=== PATIENT | male | born 1950 | race Caucasian/White ===

== ENCOUNTER 2016-09-11 00:19 | Inpatient (IN) | payer MEDICARE ==
[~2016-09-11] VITALS: Ht 185.4 cm; Wt 83.9 kg
[2016-09-11] VITALS (9 sets, daily range): BP systolic 99–147; BP diastolic 65–92
[~2016-09-11 00:19] MED LIST: ACETAMINOPHEN325 M1 ORAL; ACIDOPHILUS1 EAC4 GT; ALBUTEROL2.5 MG/3 M INH; AMPICILLIN TRI500 MG ORAL; AMPICILLIN250 MG GT; BACTRIM SINGLE S1 EA ORAL; BACTRIM-DS1 EA ORAL; BENZTROPINE MESY1 MG GT; CARAFATE1 G1 GT; CARAFATE1 G1 ORAL; COLACE100 MG ORAL; COLACE100 MG/10 GT; COLISTIN150 MG INH; COMPLETE M9 MG/15 M1 GT; CRANBERRY425 MG PO; DIFLUCAN100 MG ORAL; DULCOLAX10 MG RC; DUONEB 0.5-3(2.53 ML HHN; FAMOTIDINE20 MG GT; FERROUS SU300 MG/5 M NG; FERROUS SU300 MG/5 M ORAL; FLAGYL500 MG JT; FLORASTOR250 MG GT; FOLIC ACID1 MG GT; FOLIC ACID1 MG ORAL; GENTAMICIN IV; HEPARIN SO5000 UNIT2 SUBQ; INVANZ1 G1 IV; INVANZ1 GM IVPB; LEVOTHYROXINE50 MCG GT; LISINOPRIL20 MG GT; LORAZEPAM1 MG GT; MEROPENEM-1 GM/50 ML IV; MEROPENEM1 GM IVPB; METOCLOPRAMIDE H5 M1 ORAL; METRONIDAZOLE250 MG ORAL; METRONIDAZOLE500 MG ORAL; MILK OF MA400 MG/51 GT; MILK OF MA400 MG/51 ORAL; MIRALAX17 G2 ORAL; MIRALAX17 GM GT; MOM30 ML GT; MULTI VITAMIN1 EACH GT; MULTI-VITAMIN-1 EACH GT; NORVASC2.5 MG ORAL; NORVASC5 MG GT; OMEPRAZOLE20 M2 GT; PANTOPRAZOLE SO40 MG GT; PROTONIX40 M2 GT; PROTONIX40 M2 NG; PROTONIX40 MG GT; REGLAN5 MG GT; REGLAN5 MG ORAL; ROCEPHIN 11 GM/50 ML IVPB; SENNA8.6 M3 PO; SUCRALFATE1 GM GT; SYNTHROID50 MCG ORAL; TRILEPTAL150 MG GT; TRILEPTAL150 MG ORAL; TRILEPTAL600 MG GT; TYLENOL650 MG/20. GT; VANCOMYCIN HCL125 MG PO; VANCOMYCIN1 GM IV; VANCOMYCIN250 MG/5 M ORAL; VENOFER50 MG/2.5 IV; VITAMIN C500 M1 GT; VITAMIN C500 MG/11 GT; ZINC SULFATE220 M1 GT; ZOFRAN4 M3 GT; ZOFRAN4 M3 ORAL; ZYVOX600 MG ORAL; ZYVOX600 MG/300 IVPB
--- NOTE | 2016-09-11 00:59 | Emergency Room Report ---
History of Present Illness General Chief Complaint: Fever Source: Medical Record, EMS Present Illness HPI This is an unfortunate 66-year-old male who is a [facility] patient. He has multiple medical problem in his bedbound. He is a tracheostomy and feeding tube. His contracted. His been admitted here multiple times for sepsis secondary to pneumonia and UTI. He presents today with chief complaint of fever and decreased mentation. Unable to get any other history from the patient. No complaint of cough. Allergies: Coded Allergies: NO KNOWN DRUG ALLERGIES (Verified Allergy, Unknown, 09/11/16) Patient History Past Medical History: see triage record, old chart reviewed Past Surgical History: other Pertinent Family History: none Social History: Denies: smoking Immunizations: UTD Reviewed Nursing Documentation: PMH: Agreed, PSxH: Agreed Nursing Documentation-PMH Past Medical History: No History, Except For Hx Cardiac Problems: Yes Hx Hypertension: Yes Hx Asthma: Yes Hx Diabetes: Yes Hx Cancer: No Hx Neurological Problems: Yes Hx Cerebrovascular Accident: Yes Hx Transient Ischemic Attacks: Yes Hx Dementia: Yes Hx Parkinson's Disease: Yes Hx Encephalitis: Yes Hx Seizures: Yes Hx Epilepsy: Yes Hx Paralysis: Yes - HEMIPLEGIA Hx Concentration Difficulty: Yes Hx Speech Problem: Yes Hx Aphasia: Yes Hx Weakness: Yes Hx Fatigue: Yes Hx Neurologic Surgery: No Hx Brain Shunt: No Review of Systems Constitutional: Reports: fever All Other Systems: limited - Patient unable to give history. Physical Exam Vital Signs Date Time Temp Pulse Resp B/P Pulse Ox O2 Delivery O2 Flow Rate FiO2 09/11/16 00:20 97.5 79 14 107/68 96 Mechanical Ventilator vitals unremarkable Sp02 EP Interpretation: reviewed, normal General Appearance: mild distress, Chronically Ill Head: normocephalic, atraumatic Eyes: bilateral eye EOMI, bilateral eye PERRL ENT: dry mucus membranes Neck: full range of motion, supple, no meningismus, tracheotomy Respiratory: chest non-tender, normal breath sounds, rhonchi Cardiovascular #1: regular rate, rhythm, no murmur Gastrointestinal: normal bowel sounds, non tender, no mass, no organomegaly, no bruit, non-distended, other - G-tube intact Musculoskeletal: other - Contracted Psychiatric: mood/affect normal Skin: warm/dry Procedures Critical Care Time Critical Care Time Critical care is mandated in this patient who presented with sepsis from drug resistant UTI. Patient require my urgent intervention to attenuate the risks of metabolic collapse which may lead to cardiovascular collapse and . Critical care time is 35 minutes excluding any reportable procedure. Critical care time included evaluation, multiple reevaluation, looking at old charts, interpreting laboratory and diagnostic data, discussing case with patient and family and consultants, and charting. Medical Decision Making Diagnostic Impression: Primary Impression: Sepsis Qualified Codes: A41.9 - Sepsis, unspecified organism Additional Impressions: UTI (urinary tract infection) Qualified Codes: N30.00 - Acute cystitis without hematuria Respiratory failure Qualified Codes: J96.10 - Chronic respiratory failure, unspecified whether with hypoxia or hypercapnia Proteinuria Anemia Qualified Codes: D64.9 - Anemia, unspecified ER Course Is an unfortunate 58-year-old male admitted for sepsis and UTI. He grew out multidrug-resistant Klebsiella in the urine before. It is sensitive to Tygacil. Antibiotics ordered. Will admit for IV antibiotics. Lab Results Impression labs showed leukocytosis EKG Diagnostic Results Rate: normal Rhythm: NSR ST Segments: no acute changes Rhythm Strip Diag. Results EP Interpretation: yes Rate: 100 Rhythm: NSR, no PVC's, no ectopy Chest X-Ray Diagnostic Results EP Interpretation: Yes Findings: no effusion, no pneumothorax, no acute cardiopulmonary disease, other - Chronic atelectasis Number of Views: 1 Last Vital Signs Date Time Temp Pulse Resp B/P Pulse Ox O2 Delivery O2 Flow Rate FiO2 09/11/16 00:20 97.5 79 14 107/68 96 Mechanical Ventilator Status: improved Disposition: ADMITTED INPATIENT Condition: Serious DEVON KELSEY M.D. Sep 11, 2016 00:59
[2016-09-11 01:14] LABS: KETONES,URINE 1+ (NEGATIVE); LEUKOCYTE ESTERASE ,URINE 3+ (NEGATIVE); NITRITE,URINE NEGATIVE (NEGATIVE); PH,URINE 9 (4.5-8.0); PROTEIN,URINE 4+ (NEGATIVE); UROBILINOGEN,URINE NORMAL MG/DL (0.0-1.0)
[2016-09-11 01:20] LABS: MEAN CORPUSCULAR HEMOGLOBIN 29.3 PG (27.0-31.0); MEAN CORPUSCULAR HGB CONC 31.6 G/DL (32.0-36.0); MEAN CORPUSCULAR VOLUME 93 FL (80-99); MEAN PLATELET VOLUME 8.3 FL (6.5-10.1); PLATELET COUNT 311 K/UL (150-450); RED BLOOD COUNT 3.59 M/UL (4.70-6.10); RED CELL DISTRIBUTION WIDTH 14.2 % (11.6-14.8); WHITE BLOOD COUNT 19.5 K/UL (4.8-10.8)
[2016-09-11 01:24] LABS: APPEARANCE,URINE TURBID
[2016-09-11 01:25] LABS: BACTERIA,URINE MODERATE /HPF; RBC,URINE 20-30 /HPF (0 - 0); SQUAMOUS EPITHELIAL CELL,UR FEW /LPF (NONE/OCC); WBC,URINE 30-40 /HPF (0 - 0)
[2016-09-11 01:27] LABS: INR 1.1 (0.9-1.1); PROTHROMBIN TIME 10.9 SEC (9.30-11.50)
[2016-09-11 01:31] LABS: TROPONIN I < 0.30 ng/mL (<=0.30)
[2016-09-11 01:35] LABS: ALANINE AMINOTRANSFERASE 14 U/L (3-41); ALBUMIN/GLOBULIN RATIO 0.8 (1.0-2.7); ANION GAP 13 (5-15); ASPARTATE AMINO TRANSFERASE 11 U/L (5-40); CALCIUM 9.2 mg/dL (8.6-10.2); CARBON DIOXIDE 26 mEQ/L (20-30); CHLORIDE 95 mEQ/L (98-107); CREATININE 0.6 mg/dL (0.7-1.2); GLOMERULAR FILTRATION RATE > 60 mL/min (>60); HEMOLYSIS 4; POTASSIUM 4.3 mEQ/L (3.4-4.9); SODIUM 134 mEQ/L (135-145); TOTAL PROTEIN 7.1 g/dL (6.6-8.7)
[2016-09-11 01:44] LABS: CKMB < 1.5 ng/mL (< 6.7)
[2016-09-11] MEDS ORDERED: Acetaminophen 500mg (ES) tab ORAL ONE (01:45)
[2016-09-11] MEDS ORDERED: Meropenem 1gm vial ONE (01:58)
[2016-09-11] MEDS ORDERED: NS 100 ML ONE (01:58)
[2016-09-11] MEDS ORDERED: Tubing IV Cassette IV ONE (01:58)
[2016-09-11 04:43] LABS: BAND NEUTROPHILS % (MANUAL) 12 % (0-8); BASOPHILS % (MANUAL) 1 % (0-2); EOSINOPHILS % (MANUAL) 0 % (0-3); LYMPHOCYTES % (MANUAL) 14 % (20-45); NEUTROPHILS % (MANUAL) 70 % (45-75); PLATELET ESTIMATE ADEQUATE; PLATELET MORPHOLOGY NORMAL; TOTAL CELLS COUNTED 100
[2016-09-11 04:44] LABS: HYPOCHROMASIA 1+
--- NOTE | 2016-09-11 04:54 | Emergency Room Report ---
History of Present Illness General Chief Complaint: Fever Source: Medical Record, EMS Present Illness Allergies: Coded Allergies: NO KNOWN DRUG ALLERGIES (Verified Allergy, Unknown, 09/11/16) Nursing Documentation-PMH Past Medical History: No History, Except For Hx Cardiac Problems: Yes Hx Hypertension: Yes Hx Asthma: Yes Hx Diabetes: Yes Hx Cancer: No Hx Neurological Problems: Yes Hx Cerebrovascular Accident: Yes Hx Transient Ischemic Attacks: Yes Hx Dementia: Yes Hx Parkinson's Disease: Yes Hx Encephalitis: Yes Hx Seizures: Yes Hx Epilepsy: Yes Hx Paralysis: Yes - HEMIPLEGIA Hx Concentration Difficulty: Yes Hx Speech Problem: Yes Hx Aphasia: Yes Hx Weakness: Yes Hx Fatigue: Yes Hx Neurologic Surgery: No Hx Brain Shunt: No Physical Exam Vital Signs Date Time Temp Pulse Resp B/P Pulse Ox O2 Delivery O2 Flow Rate FiO2 09/11/16 00:20 97.5 79 14 107/68 96 Mechanical Ventilator 09/11/16 00:25 40 Procedures Central Line Central Line : Consent: Verbal Central Line Lumen: triple Maximal Sterile Barrier Tech: yes cap, yes mask, yes sterile gown, yes sterile gloves, yes large sterile sheet, yes hand hygiene, yes chlorhexidine prep Central Line Postion: femoral (R) Anesthesia: local cc's of anesthesia: 10 Complications: none Central Line Post Position: sutured, good blood return Attempts: One Patient Tolerated: Well Complications: None Medical Decision Making Diagnostic Impression: Primary Impression: Sepsis Additional Impressions: Anemia Proteinuria Respiratory failure Qualified Codes: J96.10 - Chronic respiratory failure, unspecified whether with hypoxia or hypercapnia UTI (urinary tract infection) ER Course Patient keep moving around and his IV keep blowing. He needs antibiotics and IV fluid. I elected to place a central line for blood draw and medication an IV fluid. Patient tolerated procedure without a problem. Last Vital Signs Date Time Temp Pulse Resp B/P Pulse Ox O2 Delivery O2 Flow Rate FiO2 09/11/16 03:00 99.0 86 14 117/71 100 Mechanical Ventilator 40 Disposition: ADMITTED INPATIENT Condition: Serious Referrals: MIKAYLA WILLOUGHBY (PCP) DEVON KELSEY M.D. Sep 11, 2016 04:54
[2016-09-11] MEDS ORDERED: Morphine Sulfate 4mg/ml Inj IVP PRN (07:30)
[2016-09-11] MEDS ORDERED: Miralax 17gm pkt ORAL PRN (07:30)
[2016-09-11] MEDS ORDERED: Vancomycin 1.5 GM in D5W 300 ML IVPB ONE (07:45)
[2016-09-11] MEDS ORDERED: DuoNeb 0.5-3(2.5)mg/3ml neb HHN PRN (09:30)
[2016-09-11] MEDS ORDERED: Heparin 5000 units/ml inj SUBQ SCH (09:30)
--- NOTE | 2016-09-11 10:45 | Diagnostic Imaging Report ---
Indication: Chest Technique: One view of the chest Comparison: 08/21/2016 Findings: Patient's left hand obscures the left lung base. There is some right perihilar atelectasis and possibly minimal consolidation. Lungs and pleural spaces otherwise probably clear. Previously demonstrated infiltrates are no longer evident. Heart size is normal. There is a tracheostomy. There is an old healed fracture deformity of the right clavicle Impression: Minimal right perihilar atelectasis No acute process otherwise
[2016-09-11] MEDS: LORazepam Inj 2mg/ml 1ml IV PRN (10:58)
[2016-09-11] MEDS: Sucralfate 1gm tab GT SCH ×4 (10:58→20:51)
--- NOTE | 2016-09-11 12:07 | History and Physical ---
History of Present Illness General Date patient seen: Sep 11, 2016 Reason for Hospitalization: Fever Present Illness HPI 66-year-old male with hx of chronic trach /vent/ PEG, [facility] resident, presented with chief complaint of fever and decreased mentation. Unable to get any other history from the patient. No complaint of cough. Patient was diagnosed to have sepsis and admitted to [facility]. Patient looks cachectic, comfortable and in no distress connected to vent. Allergies: Coded Allergies: NO KNOWN DRUG ALLERGIES (Verified Allergy, Unknown, 09/11/16) Medication History Scheduled Amlodipine Besylate (Norvasc), 2.5 MG ORAL DAILY Benztropine Mesylate* (Benztropine Mesylate*), 1 MG GT BID, (Reported) Ertapenem Sodium* (INVanz*), 1 GM IVPB Q24H, (Reported) Famotidine (Famotidine), 20 MG GT DAILY, (Reported) Ferrous Sulfate (Ferrous Sulfate), 300 MG NG BID Ferrous Sulfate (Ferrous Sulfate), 7.5 ML ORAL BID, (Reported) Folic Acid* (Folic Acid*), 1 MG GT DAILY, (Reported) Levothyroxine Sodium* (Levothyroxine Sodium*), 50 MCG GT DAILY, (Reported) Magnesium Hydroxide (Milk of Magnesia), 30 ML GT DAILY, (Reported) Magnesium Hydroxide* (Milk Of Magnesia*), 30 ML ORAL QHS, (Reported) Meropenem (Meropenem), 1 GM IVPB Q12HR, (Reported) Metoclopramide Hcl* (Reglan*), 5 MG GT EVERY 6 HOURS, (Reported) Metoclopramide Hcl* (Reglan*), 10 MG GT EVERY 6 HOURS, (Reported) Metronidazole* (Flagyl*), 500 MG JT Q8HR Oxcarbazepine (Oxcarbazepine), 300 MG GT TWICE A DAY, (Reported) Oxcarbazepine* (Trileptal*), 300 MG GT BID, (Reported) Polyethylene Glycol 3350* (Miralax*), 17 GM ORAL BEDTIME Saccharomyces Boulardii (Florastor*), 250 MG GT TWICE A DAY, (Reported) Saccharomyces Boulardii (Florastor*), 250 MG GT TWICE A DAY, (Reported) Saccharomyces Boulardii (Florastor*), 250 MG GT TWICE A DAY, (Reported) Sucralfate* (Carafate*), 1 GM GT QID Sucralfate* (Carafate*), 1 GM GT FOUR TIMES A DAY, (Reported) Sucralfate* (Carafate*), 1 GM GT FOUR TIMES A DAY, (Reported) Scheduled PRN Acetaminophen (Acetaminophen), 640 MG GT Q4HR PRN for Prn Headache/Temp > 101, ( Reported) Albuterol Sulfate* (Albuterol Sulfate Hhn*), 3 ML INH Q6HR PRN for Shortness of Breath, (Reported) Ipratropium/Albuterol Sulfate (DuoNeb 0.5-3(2.5)mg/3ml), 3 ML HHN Q4H PRN for Shortness of Breath Miscellaneous Medications Bisacodyl (Dulcolax), 10 MG RC, (Reported) Multivit-Min/Iron Fum/Folic AC (Ucets-Beztwxb-Hpvmaomy Tablet), 1 EACH GT, ( Reported) Vancomycin Hcl (Vancomycin), 1 GM IV, (Reported) Patient History Limited by: medical condition Healthcare decision maker Resuscitation status Advanced Directive on File No Past Medical/Surgical History Past Medical/Surgical History: (1) [facility] resident (2) Debility (3) Dementia (4) Severe erosive esophagitis (5) Gastrostomy tube dependent Review of Systems All Other Systems: negative except mentioned in HPI Physical Exam Lines, tubes and drains: peripheral HEENT: normocephalic, atraumatic Neck: non-tender, normal alignment Respiratory/Chest: chest wall non-tender, lungs clear Cardiovascular/Chest: normal peripheral pulses, normal rate Abdomen: normal bowel sounds, non tender Genitourinary/Rectal: normal genital exam, normal rectal exam Extremities: normal range of motion, non-tender, non-pitting Skin Exam: warm/dry Neurologic: radio producer II-XII grossly normal Lymphatic: anterior cervical Last 24 Hour Vital Signs Date Time Temp Pulse Resp B/P Pulse Ox O2 Delivery O2 Flow Rate FiO2 09/11/16 09:33 98.2 87 23 124/92 100 Mechanical Ventilator 40 09/11/16 09:27 89 23 40 09/11/16 07:58 98.2 87 17 124/92 100 Mechanical Ventilator 40 09/11/16 07:05 85 24 40 09/11/16 07:00 87 21 Mechanical Ventilator 40 09/11/16 06:41 97.9 89 21 129/79 100 Mechanical Ventilator 09/11/16 05:30 99.2 79 17 140/82 100 Mechanical Ventilator 40 09/11/16 05:29 77 17 40 09/11/16 04:01 83 17 133/68 100 Mechanical Ventilator 40 09/11/16 03:00 99.0 86 14 117/71 100 Mechanical Ventilator 40 09/11/16 02:50 85 18 40 09/11/16 02:40 99.0 09/11/16 01:36 100.1 87 12 99/77 100 Mechanical Ventilator 40 09/11/16 00:55 40 09/11/16 00:25 89 18 40 09/11/16 00:20 97.5 79 14 107/68 96 Mechanical Ventilator Intake and Output 09/10/16 09/11/16 19:00 07:00 Intake Total 200 ml Output Total 400 ml Balance -200 ml IV Total 200 ml Output Urine Total 400 ml Laboratory Tests Test 09/11/16 00:45 09/11/16 01:00 Urine Color Yellow Urine Appearance Turbid Urine pH 9 (4.5-8.0) Urine Specific [place] 1.015 (1.005-1.035) Urine Protein 4+ (NEGATIVE) H Urine Glucose (UA) Negative (NEGATIVE) Urine Ketones 1+ (NEGATIVE) H Urine Occult Blood 5+ (NEGATIVE) H Urine Nitrite Negative (NEGATIVE) Urine Bilirubin Negative (NEGATIVE) Urine Urobilinogen Normal MG/DL (0.0-1.0) Urine Leukocyte Esterase 3+ (NEGATIVE) H Urine RBC 20-30 /HPF (0 - 0) H Urine WBC 30-40 /HPF (0 - 0) H Urine Squamous Epithelial Cells Few /LPF (NONE/OCC) Urine Bacteria Moderate /HPF (NONE) H White Blood Count 19.5 K/UL (4.8-10.8) H Red Blood Count 3.59 M/UL (4.70-6.10) L Hemoglobin 10.5 G/DL (14.2-18.0) L Hematocrit 33.3 % (42.0-52.0) L Mean Corpuscular Volume 93 FL (80-99) Mean Corpuscular Hemoglobin 29.3 PG (27.0-31.0) Mean Corpuscular Hemoglobin Concent 31.6 G/DL (32.0-36.0) L Red Cell Distribution Width 14.2 % (11.6-14.8) Platelet Count 311 K/UL (150-450) Mean Platelet Volume 8.3 FL (6.5-10.1) Neutrophils (%) (Auto) % (45.0-75.0) Lymphocytes (%) (Auto) % (20.0-45.0) Monocytes (%) (Auto) % (1.0-10.0) Eosinophils (%) (Auto) % (0.0-3.0) Basophils (%) (Auto) % (0.0-2.0) Differential Total Cells Counted 100 Neutrophils % (Manual) 70 % (45-75) Lymphocytes % (Manual) 14 % (20-45) L Monocytes % (Manual) 3 % (1-10) Eosinophils % (Manual) 0 % (0-3) Basophils % (Manual) 1 % (0-2) Band Neutrophils 12 % (0-8) H Platelet Estimate Adequate Platelet Morphology Normal Hypochromasia 1+ Prothrombin Time 10.9 SEC (9.30-11.50) Prothromb Time International Ratio 1.1 (0.9-1.1) Activated Partial Thromboplast Time 31 SEC (23-33) Sodium Level 134 mEQ/L (135-145) L Potassium Level 4.3 mEQ/L (3.4-4.9) Chloride Level 95 mEQ/L (98-107) L Carbon Dioxide Level 26 mEQ/L (20-30) Anion Gap 13 (5-15) Blood Urea Nitrogen 19 mg/dL (7-23) Creatinine 0.6 mg/dL (0.7-1.2) L Estimat Glomerular Filtration Rate > 60 mL/min (>60) Glucose Level 112 mg/dL (74-106) H Lactic Acid Level 1.60 mmol/L (0.66-2.22) Calcium Level 9.2 mg/dL (8.6-10.2) Total Bilirubin < 0.2 mg/dL (0.0-1.2) Aspartate Amino Transf (AST/SGOT) 11 U/L (5-40) Alanine Aminotransferase (ALT/SGPT) 14 U/L (3-41) Alkaline Phosphatase 108 U/L (40-129) Total Creatine Kinase 21 U/L (38-174) L Creatine Kinase MB < 1.5 ng/mL (< 6.7) Creatine Kinase MB Relative Index Troponin I < 0.30 ng/mL (<=0.30) Total Protein 7.1 g/dL (6.6-8.7) Albumin 3.3 g/dL (3.5-5.2) L Globulin 3.8 g/dL Albumin/Globulin Ratio 0.8 (1.0-2.7) L Microbiology Date/Time Source Procedure Growth Status 09/11/16 05:15 Nasal Nares Influenza Types A,B Antigen (RYDER) - Final Complete Height (Feet): 6 Height (Inches): 1.00 Weight (Pounds): 185 Medications Current Medications Medications (Trade) Dose Ordered Sig/Wanda Route PRN Reason Start Time Stop Time Status Last Admin Dose Admin Acetaminophen (Tylenol) 650 mg Q4H PRN ORAL FEVER>100.5 09/11/16 08:00 10/11/16 07:59 Albuterol/ Ipratropium 3 ml 3 ml Q4H PRN HHN Shortness of Breath 09/11/16 09:30 09/16/16 09:29 Cefepime HCl 2 gm/ Dextrose 100 ml @ 100 mls/hr EVERY 12 HOURS IV 09/11/16 10:30 09/18/16 10:29 09/11/16 10:58 Dextrose STAT PRN IV Hypoglycemia 09/11/16 07:30 10/11/16 07:29 Heparin Sodium (Porcine) (Heparin 5000 units/ml) 5,000 units EVERY 12 HOURS SUBQ 09/11/16 09:30 10/11/16 09:29 09/11/16 11:00 Levothyroxine Sodium (Synthroid) 50 mcg DAILY GT 09/11/16 10:00 10/11/16 09:59 09/11/16 10:58 Lorazepam (Ativan 2mg/ml 1ml) 2 mg Q2H PRN IV For Anxiety 09/11/16 07:30 09/18/16 07:29 09/11/16 10:58 Morphine Sulfate (Morphine Sulfate) 4 mg Q4H PRN IVP Severe Pain (Pain Scale 7-10) 09/11/16 07:30 09/18/16 07:29 Ondansetron HCl (Zofran) 4 mg Q6H PRN IVP Nausea & Vomiting 09/11/16 07:30 10/11/16 07:29 Oxcarbazepine (Trileptal) 300 mg Q12HR GT 09/11/16 10:00 10/11/16 09:59 Polyethylene Glycol (Miralax) 17 gm DAILYPRN PRN ORAL Constipation 09/11/16 07:30 10/11/16 07:29 Sodium Chloride (0.45% NS 1000ml) 1,000 ml @ 50 mls/hr Q20H IV 09/11/16 08:00 10/11/16 07:59 09/11/16 10:57 Sucralfate 1 gm 1 gm FOUR TIMES A DAY GT 09/11/16 09:30 10/11/16 09:29 09/11/16 10:58 Tigecycline/ Dextrose (Tygacil/D5W 100ml) 100 ml @ 200 mls/hr Q12H IVPB 09/11/16 12:00 09/18/16 11:59 Vancomycin HCl/ Dextrose (Vancomycin/D5W 250ml) 250 ml @ 167 mls/hr Q12H IVPB 09/11/16 20:00 09/16/16 19:59 Assessment/Plan Problem List: (1) Respiratory failure, [id number]-ms-[id number] ICD Codes: J96.20 - Respiratory failure, lxlct-il-kdvmosp SNOMED: 27539160 (2) Aspiration pneumonia ICD Codes: J69.0 - Pneumonitis due to inhalation of food and vomit SNOMED: 974056437 (3) Tracheobronchitis, chronic ICD Codes: J42 - Tracheobronchitis, chronic SNOMED: 94547601 (4) Alzheimer's dementia ICD Codes: G30.9 - Alzheimer's disease, unspecified SNOMED: 69047901 (5) Psychosis ICD Codes: F29 - Psychosis SNOMED: 55004683 (6) Dementia ICD Codes: F03.90 - Dementia SNOMED: 85537590 (7) Debility ICD Codes: R53.81 - Debility SNOMED: 48725536 Respiratory: monitor respiratory rate, adjust FIO2 Cardiac: continue to monitor HR/BP Renal: F/U I&O, keep IV fluid, check electrolytes Infectious Disease: check cultures, continue antibiotics Gastrointestinal: continue feedings/current rate Endocrine: monitor blood sugar, continue sliding scale insulin Hematologic: monitor H/H, transfuse if hgb<8.5 Neurologic: PRN Ativan, PRN Morphine, keep patient comfortable Prophylaxis: Protonix, Heparin Disposition: keep in ICU Discussed with: nurses, consultants, field nurse case manager MIKAYLA WILLOUGHBY Sep 11, 2016 12:07
[2016-09-11] MEDS: OXcarbazepine 150mg tab GT SCH ×2 (13:09→20:51)
--- NOTE | 2016-09-11 16:28 | General Progress Note ---
Assessment/Plan Assessment/Plan GI Consult Dictated ATSP for GIB h/o severe GERD will arrange for possible EGD in am Thank you Ritu Ayala MD Subjective Allergies: Coded Allergies: NO KNOWN DRUG ALLERGIES (Verified Allergy, Unknown, 09/11/16) Objective Last 24 Hour Vital Signs Date Time Temp Pulse Resp B/P Pulse Ox O2 Delivery O2 Flow Rate FiO2 09/11/16 16:00 40.0 09/11/16 16:00 98.8 112 20 129/74 98 Mechanical Ventilator 40 09/11/16 14:55 106 20 40 09/11/16 14:28 105 21 40 09/11/16 12:15 120 24 40 09/11/16 12:00 110 09/11/16 12:00 97.5 107 22 147/65 97 Venturi Mask 40 09/11/16 09:33 98.2 87 23 124/92 100 Mechanical Ventilator 40 09/11/16 09:30 40.0 09/11/16 09:27 89 23 40 09/11/16 07:58 98.2 87 17 124/92 100 Mechanical Ventilator 40 09/11/16 07:05 85 24 40 09/11/16 07:00 87 21 Mechanical Ventilator 40 09/11/16 06:41 97.9 89 21 129/79 100 Mechanical Ventilator 09/11/16 05:30 99.2 79 17 140/82 100 Mechanical Ventilator 40 09/11/16 05:29 77 17 40 09/11/16 04:01 83 17 133/68 100 Mechanical Ventilator 40 09/11/16 03:00 99.0 86 14 117/71 100 Mechanical Ventilator 40 09/11/16 02:50 85 18 40 09/11/16 02:40 99.0 09/11/16 01:36 100.1 87 12 99/77 100 Mechanical Ventilator 40 09/11/16 00:55 40 09/11/16 00:25 89 18 40 09/11/16 00:20 97.5 79 14 107/68 96 Mechanical Ventilator Intake and Output 09/10/16 09/11/16 19:00 07:00 Intake Total 200 ml Output Total 400 ml Balance -200 ml IV Total 200 ml Output Urine Total 400 ml Laboratory Tests 09/11/16 00:45: Urine Color Yellow, Urine Appearance Turbid, Urine pH 9, Urine Specific [place] 1.015, Urine Protein 4+H, Urine Glucose (UA) Negative, Urine Ketones 1+H, Urine Occult Blood 5+H, Urine Nitrite Negative, Urine Bilirubin Negative, Urine Urobilinogen Normal, Urine Leukocyte Esterase 3+H, Urine RBC 20-30H, Urine WBC 30-40H, Urine Squamous Epithelial Cells Few, Urine Bacteria ModerateH 09/11/16 01:00: White Blood Count 19.5H, Red Blood Count 3.59L, Hemoglobin 10.5L, Hematocrit 33.3L, Mean Corpuscular Volume 93, Mean Corpuscular Hemoglobin 29.3, Mean Corpuscular Hemoglobin Concent 31.6L, Red Cell Distribution Width 14.2, Platelet Count 311, Mean Platelet Volume 8.3, Neutrophils (%) (Auto) , Lymphocytes (%) (Auto) , Monocytes (%) (Auto) , Eosinophils (%) (Auto) , Basophils (%) (Auto) , Differential Total Cells Counted 100, Neutrophils % ( Manual) 70, Lymphocytes % (Manual) 14L, Monocytes % (Manual) 3, Eosinophils % ( Manual) 0, Basophils % (Manual) 1, Band Neutrophils 12H, Platelet Estimate Adequate, Platelet Morphology Normal, Hypochromasia 1+, Prothrombin Time 10.9, Prothromb Time International Ratio 1.1, Activated Partial Thromboplast Time 31, Sodium Level 134L, Potassium Level 4.3, Chloride Level 95L, Carbon Dioxide Level 26, Anion Gap 13, Blood Urea Nitrogen 19, Creatinine 0.6L, Estimat Glomerular Filtration Rate > 60, Glucose Level 112H, Lactic Acid Level 1.60, Calcium Level 9.2, Total Bilirubin < 0.2, Aspartate Amino Transf (AST/SGOT) 11, Alanine Aminotransferase (ALT/SGPT) 14, Alkaline Phosphatase 108, Total Creatine Kinase 21L, Creatine Kinase MB < 1.5, Creatine Kinase MB Relative Index , Troponin I < 0.30, Total Protein 7.1, Albumin 3.3L, Globulin 3.8, Albumin/Globulin Ratio 0.8L Height (Feet): 6 Height (Inches): 1.00 Weight (Pounds): 185 RITU AYALA Sep 11, 2016 16:28
[2016-09-11] MEDS: Pantoprazole Inj IVP SCH (17:22)
[2016-09-12] VITALS: BP 127/70
[2016-09-12] MEDS: LORazepam Inj 2mg/ml 1ml IV PRN (00:49)
[2016-09-12 04:00] VITALS: BP 117/67
[2016-09-12 06:13] LABS: BASOPHILS % (AUTO) 1.5 % (0.0-2.0); EOSINOPHILS % (AUTO) 1.4 % (0.0-3.0); LYMPHOCYTES % (AUTO) 16.6 % (20.0-45.0); MEAN CORPUSCULAR HEMOGLOBIN 29.1 PG (27.0-31.0); MEAN CORPUSCULAR HGB CONC 30.4 G/DL (32.0-36.0); MEAN CORPUSCULAR VOLUME 96 FL (80-99); MEAN PLATELET VOLUME 6.8 FL (6.5-10.1); MONOCYTES % (AUTO) 5.3 % (1.0-10.0); NEUTROPHILS % (AUTO) 75.2 % (45.0-75.0); PLATELET COUNT 310 K/UL (150-450); RED BLOOD COUNT 3.13 M/UL (4.70-6.10); WHITE BLOOD COUNT 17.3 K/UL (4.8-10.8)
[2016-09-12 06:30] LABS: CHLORIDE 96 mEQ/L (98-107); POTASSIUM 4.3 mEQ/L (3.4-4.9); SODIUM 133 mEQ/L (135-145)
[2016-09-12 06:50] LABS: ANION GAP 16 (5-15); CALCIUM 8.9 mg/dL (8.6-10.2); CARBON DIOXIDE 21 mEQ/L (20-30); CREATININE 0.6 mg/dL (0.7-1.2); GLOMERULAR FILTRATION RATE > 60 mL/min (>60); HEMOLYSIS 7; PHOSPHORUS 3.1 mg/dL (2.5-4.8)
[2016-09-12 08:00] VITALS: BP 131/71
[2016-09-12] MEDS: Sucralfate 1gm tab GT SCH ×4 (08:38→21:05)
[2016-09-12] MEDS: OXcarbazepine 150mg tab GT SCH ×2 (08:39→21:06)
[2016-09-12] MEDS: Pantoprazole Inj IVP SCH ×2 (08:39→21:05)
--- NOTE | 2016-09-12 11:36 | Pulmonology Progress Note ---
Assessment/Plan Problems: (1) Respiratory failure, omyni-sk-dkdalys (2) Aspiration pneumonia (3) Tracheobronchitis, chronic (4) Alzheimer's dementia (5) Psychosis (6) Dementia (7) Debility Respiratory: monitor respiratory rate, CXR Cardiac: continue to monitor HR/BP Renal: F/U I&O, keep IV fluid Infectious Disease: check cultures, continue antibiotics Gastrointestinal: continue feedings/current rate Endocrine: monitor blood sugar, continue sliding scale insulin Hematologic: monitor H/H, transfuse if hgb<8.5 Neurologic: PRN Ativan, keep patient comfortable Affect: PRN ativan Prophylaxis: Heparin Notes Reviewed: cardio, 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 with: nurses, consultants, case hardener, other - pt needs EGD and colonoscopy, but doens't have any family members. Since he has melena, it is an urgent procedure. Subjective ROS Limited/Unobtainable: Yes Interval Events: comfortable Allergies: Coded Allergies: NO KNOWN DRUG ALLERGIES (Verified Allergy, Unknown, 09/11/16) Objective Last 24 Hour Vital Signs Date Time Temp Pulse Resp B/P Pulse Ox O2 Delivery O2 Flow Rate FiO2 09/12/16 08:45 75 15 40 09/12/16 08:00 65 09/12/16 08:00 97.5 72 15 131/71 99 Mechanical Ventilator 40 09/12/16 08:00 40.0 09/12/16 07:00 74 14 40 09/12/16 04:54 92 14 40 09/12/16 04:00 40.0 09/12/16 04:00 97.3 61 16 117/67 100 Mechanical Ventilator 40 09/12/16 04:00 81 09/12/16 03:45 89 21 40 09/12/16 01:14 82 22 40 09/12/16 00:00 74 09/12/16 00:00 98.1 82 20 127/70 96 Mechanical Ventilator 40 09/12/16 00:00 40.0 09/11/16 23:22 99 19 40 09/11/16 21:19 85 21 40 09/11/16 20:00 40.0 09/11/16 20:00 76 09/11/16 20:00 98.1 85 17 142/72 98 Mechanical Ventilator 40 09/11/16 19:00 95 14 40 09/11/16 17:30 103 20 40 09/11/16 16:00 40.0 09/11/16 16:00 98.8 112 20 129/74 98 Mechanical Ventilator 40 09/11/16 16:00 103 09/11/16 14:55 106 20 40 09/11/16 14:28 105 21 40 09/11/16 12:15 120 24 40 09/11/16 12:00 110 09/11/16 12:00 97.5 107 22 147/65 97 Venturi Mask 40 Intake and Output 09/11/16 09/12/16 18:59 06:59 Intake Total 590 ml 1360 ml Output Total 2460 ml Balance -1870 ml 1360 ml Intake Oral 0 ml Free Water 50 ml 150 ml IV Total 500 ml 1150 ml Other 40 ml 60 ml Output Urine Total 2300 ml Emesis 100 ml Other 60 ml # Voids 2 # Bowel Movements 2 General Appearance: WD/WN, cachetic HEENT: normocephalic, atraumatic Respiratory/Chest: chest wall non-tender, lungs clear Cardiovascular: normal peripheral pulses, normal rate Abdomen: normal bowel sounds Skin: no rash, no lesions Neurologic/Psychiatric: orthopedic tech II-XII grossly normal Lymphatic: no neck adenopathy Microbiology Date/Time Source Procedure Growth Status 09/11/16 01:00 Blood Blood Culture - Preliminary NO GROWTH AFTER 24 HOURS Resulted 09/11/16 00:45 Blood Blood Culture - Preliminary NO GROWTH AFTER 24 HOURS Resulted 09/11/16 05:15 Nasal Nares Influenza Types A,B Antigen (RYDER) - Final Complete 09/11/16 00:45 Urine,Clean Catch Urine Culture - Preliminary Gram Negative Bacillus 1 Resulted Laboratory Tests 09/11/16 13:00: Stool Occult Blood Positive 09/12/16 03:35: White Blood Count 17.3H, Red Blood Count 3.13L, Hemoglobin 9.1L, Hematocrit 29.9L, Mean Corpuscular Volume 96, Mean Corpuscular Hemoglobin 29.1, Mean Corpuscular Hemoglobin Concent 30.4L, Red Cell Distribution Width 15.0H, Platelet Count 310, Mean Platelet Volume 6.8, Neutrophils (%) (Auto) 75.2H, Lymphocytes (%) (Auto) 16.6L, Monocytes (%) (Auto) 5.3, Eosinophils (%) (Auto) 1.4, Basophils (%) (Auto) 1.5, Sodium Level 133L, Potassium Level 4.3, Chloride Level 96L, Carbon Dioxide Level 21, Anion Gap 16H, Blood Urea Nitrogen 16, Creatinine 0.6L, Estimat Glomerular Filtration Rate > 60, Glucose Level 87, Calcium Level 8.9, Phosphorus Level 3.1, Albumin 2.7L Current Medications Medications (Trade) Dose Ordered Sig/Wanda Route PRN Reason Start Time Stop Time Status Last Admin Dose Admin Acetaminophen (Tylenol) 650 mg Q4H PRN ORAL FEVER>100.5 09/11/16 08:00 10/11/16 07:59 Albuterol/ Ipratropium 3 ml 3 ml Q4H PRN HHN Shortness of Breath 09/11/16 09:30 09/16/16 09:29 Cefepime HCl 2 gm/ Dextrose 100 ml @ 100 mls/hr EVERY 12 HOURS IV 09/11/16 10:30 09/18/16 10:29 09/12/16 08:39 Dextrose STAT PRN IV Hypoglycemia 09/11/16 07:30 10/11/16 07:29 Levothyroxine Sodium (Synthroid) 50 mcg DAILY GT 09/11/16 10:00 10/11/16 09:59 09/12/16 08:38 Lorazepam (Ativan 2mg/ml 1ml) 2 mg Q2H PRN IV For Anxiety 09/11/16 07:30 09/18/16 07:29 09/12/16 00:49 Morphine Sulfate (Morphine Sulfate) 4 mg Q4H PRN IVP Severe Pain (Pain Scale 7-10) 09/11/16 07:30 09/18/16 07:29 Ondansetron HCl (Zofran) 4 mg Q6H PRN IVP Nausea & Vomiting 09/11/16 07:30 10/11/16 07:29 09/11/16 12:36 Oxcarbazepine (Trileptal) 300 mg Q12HR GT 09/11/16 10:00 10/11/16 09:59 09/12/16 08:39 Pantoprazole (Protonix) 40 mg EVERY 12 HOURS IVP 09/11/16 17:30 10/11/16 17:29 09/12/16 08:39 Polyethylene Glycol (Miralax) 17 gm DAILYPRN PRN ORAL Constipation 09/11/16 07:30 10/11/16 07:29 Sodium Chloride (0.45% NS 1000ml) 1,000 ml @ 100 mls/hr Q10H IV 09/11/16 17:15 10/11/16 17:14 09/12/16 03:12 Sucralfate (Carafate) 1 gm FOUR TIMES A DAY GT 09/11/16 09:30 10/11/16 09:29 09/12/16 08:38 Tigecycline 50 mg/ Dextrose 100 ml @ 200 mls/hr Q12H IVPB 09/11/16 12:00 09/18/16 11:59 09/12/16 00:20 Vancomycin HCl/ Dextrose (Vancomycin/D5W 250ml) 250 ml @ 167 mls/hr Q12H IVPB 09/11/16 20:00 09/16/16 19:59 09/12/16 08:38 MIKAYLA WILLOUGHBY Sep 12, 2016 11:36
[2016-09-12 12:00] VITALS: BP 123/72
--- NOTE | 2016-09-12 12:50 | GI Progress Note ---
Assessment/Plan Problems: (1) Dementia ICD Codes: F03.90 - Dementia SNOMED: 61712225 (2) Upper respiratory infection ICD Codes: J06.9 - Acute upper respiratory infection, unspecified SNOMED: 52294204 (3) Alzheimer's dementia ICD Codes: G30.9 - Alzheimer's disease, unspecified SNOMED: 49415511 (4) Gastrostomy tube dependent ICD Codes: Z93.1 - Gastrostomy tube dependent SNOMED: 432805638 (5) Upper GI bleed ICD Codes: K92.2 - Upper gastrointestinal hemorrhage SNOMED: 14648441 (6) Feeding by G-tube ICD Codes: Z93.1 - Gastrostomy status SNOMED: 971633433, 092314494 (7) Hypoalbuminemia ICD Codes: E88.09 - Other disorders of plasma-protein metabolism, not elsewhere classified SNOMED: 759974249 (8) Gastritis ICD Codes: K29.70 - Gastritis SNOMED: 7832054 (9) Esophagitis ICD Codes: K20.9 - Esophagitis SNOMED: 36462531 (10) Anemia ICD Codes: D64.9 - Anemia SNOMED: 691808837 (11) C. difficile colitis ICD Codes: A04.7 - C. difficile colitis SNOMED: 842354012 Status: unchanged Status Narrative Discussed with Dr. Wilson. Assessment/Plan defer any endoscopic procedures at this time given bleed most likely from severe esophagitis monitor H&H, transfuse prn PPI BIB carafate reglan reflux measures GTF Subjective Subjective limited Objective Last 24 Hour Vital Signs Date Time Temp Pulse Resp B/P Pulse Ox O2 Delivery O2 Flow Rate FiO2 09/12/16 12:00 40.0 09/12/16 10:48 80 15 40 09/12/16 08:45 75 15 40 09/12/16 08:00 65 09/12/16 08:00 97.5 72 15 131/71 99 Mechanical Ventilator 40 09/12/16 08:00 40.0 09/12/16 07:00 74 14 40 09/12/16 04:54 92 14 40 09/12/16 04:00 40.0 09/12/16 04:00 97.3 61 16 117/67 100 Mechanical Ventilator 40 09/12/16 04:00 81 09/12/16 03:45 89 21 40 09/12/16 01:14 82 22 40 09/12/16 00:00 74 09/12/16 00:00 98.1 82 20 127/70 96 Mechanical Ventilator 40 09/12/16 00:00 40.0 09/11/16 23:22 99 19 40 09/11/16 21:19 85 21 40 09/11/16 20:00 40.0 09/11/16 20:00 76 09/11/16 20:00 98.1 85 17 142/72 98 Mechanical Ventilator 40 09/11/16 19:00 95 14 40 09/11/16 17:30 103 20 40 09/11/16 16:00 40.0 09/11/16 16:00 98.8 112 20 129/74 98 Mechanical Ventilator 40 09/11/16 16:00 103 09/11/16 14:55 106 20 40 09/11/16 14:28 105 21 40 Intake and Output 09/11/16 09/12/16 18:59 06:59 Intake Total 590 ml 1360 ml Output Total 2460 ml Balance -1870 ml 1360 ml Intake Oral 0 ml Free Water 50 ml 150 ml IV Total 500 ml 1150 ml Other 40 ml 60 ml Output Urine Total 2300 ml Emesis 100 ml Other 60 ml # Voids 2 # Bowel Movements 2 Laboratory Tests Test 09/11/16 13:00 09/12/16 03:35 Stool Occult Blood Positive (NEGATIVE) White Blood Count 17.3 K/UL (4.8-10.8) H Red Blood Count 3.13 M/UL (4.70-6.10) L Hemoglobin 9.1 G/DL (14.2-18.0) L Hematocrit 29.9 % (42.0-52.0) L Mean Corpuscular Volume 96 FL (80-99) Mean Corpuscular Hemoglobin 29.1 PG (27.0-31.0) Mean Corpuscular Hemoglobin Concent 30.4 G/DL (32.0-36.0) L Red Cell Distribution Width 15.0 % (11.6-14.8) H Platelet Count 310 K/UL (150-450) Mean Platelet Volume 6.8 FL (6.5-10.1) Neutrophils (%) (Auto) 75.2 % (45.0-75.0) H Lymphocytes (%) (Auto) 16.6 % (20.0-45.0) L Monocytes (%) (Auto) 5.3 % (1.0-10.0) Eosinophils (%) (Auto) 1.4 % (0.0-3.0) Basophils (%) (Auto) 1.5 % (0.0-2.0) Sodium Level 133 mEQ/L (135-145) L Potassium Level 4.3 mEQ/L (3.4-4.9) Chloride Level 96 mEQ/L (98-107) L Carbon Dioxide Level 21 mEQ/L (20-30) Anion Gap 16 (5-15) H Blood Urea Nitrogen 16 mg/dL (7-23) Creatinine 0.6 mg/dL (0.7-1.2) L Estimat Glomerular Filtration Rate > 60 mL/min (>60) Glucose Level 87 mg/dL (74-106) Calcium Level 8.9 mg/dL (8.6-10.2) Phosphorus Level 3.1 mg/dL (2.5-4.8) Albumin 2.7 g/dL (3.5-5.2) L Height (Feet): 6 Height (Inches): 1.00 Weight (Pounds): 185 General Appearance: no apparent distress, alert Cardiovascular: normal rate Respiratory/Chest: other - mech vent Abdominal Exam: GT site - c/d/i Objective Endoscopy Procedure Note Indication for Procedure: gib Procedures Performed: EGD Operative Findings/Diagnosis: esophagitis FRAN WILSON - Oct 27, 2015 14:50 Arabella Quesada N.PKathie Sep 12, 2016 12:50
--- NOTE | 2016-09-12 13:15 | Consultation ---
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 Sep 12, 2016 13:15
[2016-09-12 16:00] VITALS: BP 118/81
--- NOTE | 2016-09-12 16:27 | Consultation ---
DATE OF CONSULTATION: INFECTIOUS DISEASE CONSULTATION REFERRING PHYSICIAN: Huma Keating M.D. REASON FOR CONSULTATION: Evaluation of the patient for sepsis, urinary tract infection, antibiotic management. HISTORY OF PRESENT ILLNESS: The patient is a 66-year-old male with multiple medical problems as listed below, who is well known to nurse from prior multiple admissions, came to the hospital for sepsis, fever and worsening of mental status. The patient was found to have leukocytosis and urine cultures growing gram-negative rods. Infectious consultation requested for further evaluation of the patient's antibiotic management. PAST MEDICAL HISTORY: 1. History of multiple urinary tract infection and sepsis. 2. History of recurrent pneumonia. 3. History of C. difficile in the past. 4. History of upper GI bleed. 5. History of ventilator-dependent respiratory failure. 6. PEG and trach placement. 7. History of dementia. ALLERGIES: No known drug allergies. SOCIAL HISTORY: [facility]. FAMILY HISTORY: Unremarkable. REVIEW OF SYSTEMS: Unobtainable. PHYSICAL EXAMINATION: VITAL SIGNS: Temperature 97.5 degrees, pulse 86, respiratory rate 18, and blood pressure 131/71. HEENT: No pale conjunctivae. No icterus. NECK: No lymphadenopathy. CHEST: Coarse breathing sounds. HEART: S1 and S2. ABDOMEN: Soft and nontender. EXTREMITIES: No cyanosis. NEUROLOGIC: Nonverbal. SKIN: G-tube site has no sign of infection. LABORATORY AND DIAGNOSTIC DATA: White blood cells 17, hemoglobin 9, and platelets 310. Urinalysis 20 to 30 red blood cells and 30 to 40 white blood cells. BUN 16 and creatinine 0.6. ALT, AST, and alkaline phosphatase are within normal range. Rapid influenza test negative. Blood culture is pending. Urine culture is growing gram negative radha. Chest x-ray showed minimal right perihilar atelectasis. No acute process. ASSESSMENT: The patient is a 66-year-old female with multiple medical problems, who was admitted to this medical center with sepsis. The patient has history of fever at time of admission. The patient has leukocytosis, most likely source is urinary tract infection. The patient actually has not showed any significant infiltrate. At this time, the patient would benefit from broad-spectrum coverage to get further information from cultures. The patient has MDR gram-negative rods urinary tract infection. PLAN: 1. We will continue the patient on cefepime, Tygacil and vancomycin. 2. Monitor CBC. 3. Monitor BMP. 4. Monitor cultures (blood, urine and sputum). 5. Based on the patient's clinical course, laboratories and cultures, we will do further recommendations. Thank you, Dr. Keating, for allowing me to participate in the care of this patient. I will follow the patient with you during this hospitalization. Cesario Daniels M.D. DR: DENNIS JOB#: [id number] CC:
[2016-09-12 20:15] VITALS: BP 138/80
[2016-09-12] MEDS ORDERED: 1/2 NS 1000ml IV ONE (22:51)
[2016-09-12] MEDS ORDERED: Tubing IV Secondary IV ONE (22:51)
[2016-09-13] VITALS: BP 150/80
[2016-09-13 04:00] VITALS: BP 95/56
[2016-09-13 08:00] VITALS: BP 122/68
[2016-09-13 08:07] LABS: BASOPHILS % (AUTO) 0.8 % (0.0-2.0); EOSINOPHILS % (AUTO) 6.3 % (0.0-3.0); LYMPHOCYTES % (AUTO) 27.3 % (20.0-45.0); MEAN CORPUSCULAR HEMOGLOBIN 28.8 PG (27.0-31.0); MEAN CORPUSCULAR HGB CONC 30.6 G/DL (32.0-36.0); MEAN CORPUSCULAR VOLUME 94 FL (80-99); MEAN PLATELET VOLUME 7.9 FL (6.5-10.1); MONOCYTES % (AUTO) 11.5 % (1.0-10.0); NEUTROPHILS % (AUTO) 54.1 % (45.0-75.0); PLATELET COUNT 326 K/UL (150-450); RED CELL DISTRIBUTION WIDTH 14.1 % (11.6-14.8); WHITE BLOOD COUNT 7.5 K/UL (4.8-10.8)
[2016-09-13 08:21] LABS: ALANINE AMINOTRANSFERASE 11 U/L (3-41); ALBUMIN/GLOBULIN RATIO 0.7 (1.0-2.7); ANION GAP 13 (5-15); ASPARTATE AMINO TRANSFERASE 11 U/L (5-40); CALCIUM 8.9 mg/dL (8.6-10.2); CARBON DIOXIDE 25 mEQ/L (20-30); CHLORIDE 97 mEQ/L (98-107); CREATININE 0.7 mg/dL (0.7-1.2); GLOMERULAR FILTRATION RATE > 60 mL/min (>60); HEMOLYSIS 3; PHOSPHORUS 3.5 mg/dL (2.5-4.8); POTASSIUM 3.7 mEQ/L (3.4-4.9); SODIUM 135 mEQ/L (135-145); TOTAL PROTEIN 6.8 g/dL (6.6-8.7)
--- NOTE | 2016-09-13 08:31 | Cardiology Report ---
APPROVED REPORT EKG Measurement Heart [id number] Normal sinus rhythm Normal ECG
[2016-09-13 09:00] LABS: INR 1.1 (0.9-1.1); PROTHROMBIN TIME 11.2 SEC (9.30-11.50)
[2016-09-13] MEDS: Sucralfate 1gm tab GT SCH ×4 (09:00→22:41)
[2016-09-13] MEDS: OXcarbazepine 150mg tab GT SCH ×2 (09:00→20:40)
[2016-09-13] MEDS: Pantoprazole Inj IVP SCH ×2 (10:40→20:41)
--- NOTE | 2016-09-13 11:02 | GI Progress Note ---
Assessment/Plan Problems: (1) Dementia ICD Codes: F03.90 - Dementia SNOMED: 98292624 (2) Upper respiratory infection ICD Codes: J06.9 - Acute upper respiratory infection, unspecified SNOMED: 71175792 (3) Alzheimer's dementia ICD Codes: G30.9 - Alzheimer's disease, unspecified SNOMED: 61491268 (4) Gastrostomy tube dependent ICD Codes: Z93.1 - Gastrostomy tube dependent SNOMED: 998361711 (5) Upper GI bleed ICD Codes: K92.2 - Upper gastrointestinal hemorrhage SNOMED: 00354362 (6) Feeding by G-tube ICD Codes: Z93.1 - Gastrostomy status SNOMED: 476596974, 612234611 (7) Hypoalbuminemia ICD Codes: E88.09 - Other disorders of plasma-protein metabolism, not elsewhere classified SNOMED: 522934322 (8) Gastritis ICD Codes: K29.70 - Gastritis SNOMED: 3889091 (9) Esophagitis ICD Codes: K20.9 - Esophagitis SNOMED: 28210259 (10) Anemia ICD Codes: D64.9 - Anemia SNOMED: 009585181 (11) C. difficile colitis ICD Codes: A04.7 - C. difficile colitis SNOMED: 966709697 Status: stable Status Narrative Discussed with Dr. Wilson. Assessment/Plan defer any endoscopic procedures at this time given bleed most likely from severe esophagitis monitor H&H, transfuse prn PPI BIB carafate reglan reflux measures GTF Subjective Subjective limited Objective Last 24 Hour Vital Signs Date Time Temp Pulse Resp B/P Pulse Ox O2 Delivery O2 Flow Rate FiO2 09/13/16 09:03 87 25 30 09/13/16 08:00 30.0 09/13/16 08:00 98.8 78 20 122/68 100 Mechanical Ventilator 30 09/13/16 08:00 75 09/13/16 06:37 59 14 30 09/13/16 05:26 69 16 30 09/13/16 04:00 40.0 09/13/16 04:00 97.9 65 18 95/56 99 Mechanical Ventilator 30 09/13/16 03:27 58 14 30 09/13/16 01:30 67 14 30 09/13/16 00:00 97.9 85 18 150/80 100 Mechanical Ventilator 40 09/13/16 00:00 72 09/13/16 00:00 40.0 09/12/16 23:30 70 15 40 09/12/16 21:00 82 27 40 09/12/16 20:15 97.9 82 21 138/80 100 Mechanical Ventilator 40 09/12/16 20:00 40.0 09/12/16 20:00 80 09/12/16 19:30 84 14 40 09/12/16 16:31 80 18 40 09/12/16 16:00 97.9 72 19 118/81 100 Mechanical Ventilator 40 09/12/16 16:00 40.0 09/12/16 14:57 79 19 40 09/12/16 12:47 78 17 40 09/12/16 12:00 97.9 78 18 123/72 99 Mechanical Ventilator 40 09/12/16 12:00 83 09/12/16 12:00 40.0 Intake and Output 09/12/16 09/13/16 19:00 07:00 Intake Total 1620 ml 2244 ml Output Total 1000 ml 2450 ml Balance 620 ml -206 ml Free Water 50 ml IV Total 1310 ml 1834 ml Tube Feeding 210 ml 360 ml Other 50 ml 50 ml Output Urine Total 1000 ml 2450 ml # Bowel Movements 1 Laboratory Tests Test 09/13/16 07:00 White Blood Count 7.5 K/UL (4.8-10.8) # Red Blood Count 3.60 M/UL (4.70-6.10) L Hemoglobin 10.4 G/DL (14.2-18.0) L Hematocrit 33.9 % (42.0-52.0) L Mean Corpuscular Volume 94 FL (80-99) Mean Corpuscular Hemoglobin 28.8 PG (27.0-31.0) Mean Corpuscular Hemoglobin Concent 30.6 G/DL (32.0-36.0) L Red Cell Distribution Width 14.1 % (11.6-14.8) Platelet Count 326 K/UL (150-450) Mean Platelet Volume 7.9 FL (6.5-10.1) Neutrophils (%) (Auto) 54.1 % (45.0-75.0) Lymphocytes (%) (Auto) 27.3 % (20.0-45.0) Monocytes (%) (Auto) 11.5 % (1.0-10.0) H Eosinophils (%) (Auto) 6.3 % (0.0-3.0) H Basophils (%) (Auto) 0.8 % (0.0-2.0) Prothrombin Time 11.2 SEC (9.30-11.50) Prothromb Time International Ratio 1.1 (0.9-1.1) Activated Partial Thromboplast Time 32 SEC (23-33) Sodium Level 135 mEQ/L (135-145) Potassium Level 3.7 mEQ/L (3.4-4.9) Chloride Level 97 mEQ/L (98-107) L Carbon Dioxide Level 25 mEQ/L (20-30) Anion Gap 13 (5-15) Blood Urea Nitrogen 15 mg/dL (7-23) Creatinine 0.7 mg/dL (0.7-1.2) Estimat Glomerular Filtration Rate > 60 mL/min (>60) Glucose Level 102 mg/dL (74-106) Calcium Level 8.9 mg/dL (8.6-10.2) Phosphorus Level 3.5 mg/dL (2.5-4.8) Magnesium Level 2.0 mg/dL (1.7-2.5) Total Bilirubin 0.2 mg/dL (0.0-1.2) Aspartate Amino Transf (AST/SGOT) 11 U/L (5-40) Alanine Aminotransferase (ALT/SGPT) 11 U/L (3-41) Alkaline Phosphatase 104 U/L (40-129) Total Protein 6.8 g/dL (6.6-8.7) Albumin 3.0 g/dL (3.5-5.2) L Globulin 3.8 g/dL Albumin/Globulin Ratio 0.7 (1.0-2.7) L Vancomycin Level Trough 25.5 ug/mL (5.0-12.0) H Height (Feet): 6 Height (Inches): 1.00 Weight (Pounds): 185 General Appearance: no apparent distress, alert Cardiovascular: normal rate Respiratory/Chest: other - mech vent Abdominal Exam: GT site - c/d/i Objective Endoscopy Procedure Note Indication for Procedure: gib Procedures Performed: EGD Operative Findings/Diagnosis: esophagitis FRAN WILSON - Oct 27, 2015 14:50 Arabella Quesada N.P. Sep 13, 2016 11:02
--- NOTE | 2016-09-13 11:43 | Infectious Diseases Prog Note ---
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, revision 02/08, replacement 03/05 // Chronic encephalopathy / Dementia // NH resident // Functional quadriplegia / bedbound // Frequent hospital re-admissions // MDRO colonized ( MRSA, VRE, KPC, MDR-ACB ) // NKDA // Full Code PLAN: - cont IV Vanco, Tygacil and Cefepime d# 2 changed to Merrem d# 1 - monitor CBC, temperatures, - monitor cultures ( Bl, Ur, Sp ) - monitor BMP - monitor CXR - vent support, trach care, aspiration precautions Subjective Constitutional: Denies: anorexia, chills, drenching sweats, fatigue, fever, no symptoms, other Allergies: Coded Allergies: NO KNOWN DRUG ALLERGIES (Verified Allergy, Unknown, 09/11/16) Objective Vital Signs Last 24 Hour Vital Signs Date Time Temp Pulse Resp B/P Pulse Ox O2 Delivery O2 Flow Rate FiO2 09/13/16 11:27 80 23 30 09/13/16 09:03 87 25 30 09/13/16 08:00 30.0 09/13/16 08:00 98.8 78 20 122/68 100 Mechanical Ventilator 30 09/13/16 08:00 75 09/13/16 06:37 59 14 30 09/13/16 05:26 69 16 30 09/13/16 04:00 40.0 09/13/16 04:00 97.9 65 18 95/56 99 Mechanical Ventilator 30 09/13/16 03:27 58 14 30 09/13/16 01:30 67 14 30 09/13/16 00:00 97.9 85 18 150/80 100 Mechanical Ventilator 40 09/13/16 00:00 72 09/13/16 00:00 40.0 09/12/16 23:30 70 15 40 09/12/16 21:00 82 27 40 09/12/16 20:15 97.9 82 21 138/80 100 Mechanical Ventilator 40 09/12/16 20:00 40.0 09/12/16 20:00 80 09/12/16 19:30 84 14 40 09/12/16 16:31 80 18 40 09/12/16 16:00 97.9 72 19 118/81 100 Mechanical Ventilator 40 09/12/16 16:00 40.0 09/12/16 14:57 79 19 40 09/12/16 12:47 78 17 40 09/12/16 12:00 97.9 78 18 123/72 99 Mechanical Ventilator 40 09/12/16 12:00 83 09/12/16 12:00 40.0 Height (Feet): 6 Height (Inches): 1.00 Weight (Pounds): 185 HEENT: anicteric Respiratory/Chest: no respiratory distress Cardiovascular: regularly irregular Abdomen: non distended Microbiology Date/Time Source Procedure Growth Status 09/11/16 01:00 Blood Blood Culture - Preliminary NO GROWTH AFTER 48 HOURS Resulted 09/11/16 00:45 Blood Blood Culture - Preliminary NO GROWTH AFTER 48 HOURS Resulted 09/11/16 05:15 Nasal Nares MRSA Culture - Final NO METHICILLIN RESISTANT STAPH AUREUS... Complete 09/11/16 05:15 Nasal Nares Influenza Types A,B Antigen (RYDER) - Final Complete 09/11/16 00:45 Urine,Clean Catch Urine Culture - Preliminary Proteus Mirabilis Gram Negative Bacillus 2 Resulted Laboratory Tests Test 09/13/16 07:00 White Blood Count 7.5 K/UL (4.8-10.8) # Red Blood Count 3.60 M/UL (4.70-6.10) L Hemoglobin 10.4 G/DL (14.2-18.0) L Hematocrit 33.9 % (42.0-52.0) L Mean Corpuscular Volume 94 FL (80-99) Mean Corpuscular Hemoglobin 28.8 PG (27.0-31.0) Mean Corpuscular Hemoglobin Concent 30.6 G/DL (32.0-36.0) L Red Cell Distribution Width 14.1 % (11.6-14.8) Platelet Count 326 K/UL (150-450) Mean Platelet Volume 7.9 FL (6.5-10.1) Neutrophils (%) (Auto) 54.1 % (45.0-75.0) Lymphocytes (%) (Auto) 27.3 % (20.0-45.0) Monocytes (%) (Auto) 11.5 % (1.0-10.0) H Eosinophils (%) (Auto) 6.3 % (0.0-3.0) H Basophils (%) (Auto) 0.8 % (0.0-2.0) Prothrombin Time 11.2 SEC (9.30-11.50) Prothromb Time International Ratio 1.1 (0.9-1.1) Activated Partial Thromboplast Time 32 SEC (23-33) Sodium Level 135 mEQ/L (135-145) Potassium Level 3.7 mEQ/L (3.4-4.9) Chloride Level 97 mEQ/L (98-107) L Carbon Dioxide Level 25 mEQ/L (20-30) Anion Gap 13 (5-15) Blood Urea Nitrogen 15 mg/dL (7-23) Creatinine 0.7 mg/dL (0.7-1.2) Estimat Glomerular Filtration Rate > 60 mL/min (>60) Glucose Level 102 mg/dL (74-106) Calcium Level 8.9 mg/dL (8.6-10.2) Phosphorus Level 3.5 mg/dL (2.5-4.8) Magnesium Level 2.0 mg/dL (1.7-2.5) Total Bilirubin 0.2 mg/dL (0.0-1.2) Aspartate Amino Transf (AST/SGOT) 11 U/L (5-40) Alanine Aminotransferase (ALT/SGPT) 11 U/L (3-41) Alkaline Phosphatase 104 U/L (40-129) Total Protein 6.8 g/dL (6.6-8.7) Albumin 3.0 g/dL (3.5-5.2) L Globulin 3.8 g/dL Albumin/Globulin Ratio 0.7 (1.0-2.7) L Vancomycin Level Trough 25.5 ug/mL (5.0-12.0) H Current Medications Medications (Trade) Dose Ordered Sig/Wanda Route PRN Reason Start Time Stop Time Status Last Admin Dose Admin Acetaminophen (Tylenol) 650 mg Q4H PRN ORAL FEVER>100.5 09/11/16 08:00 10/11/16 07:59 Albuterol/ Ipratropium 3 ml 3 ml Q4H PRN HHN Shortness of Breath 09/11/16 09:30 09/16/16 09:29 Cefepime HCl/ Dextrose (Maxipime/D5W 100ml) 100 ml @ 100 mls/hr EVERY 12 HOURS IV 09/11/16 10:30 09/18/16 10:29 09/13/16 09:00 Dextrose STAT PRN IV Hypoglycemia 09/11/16 07:30 10/11/16 07:29 Levothyroxine Sodium (Synthroid) 50 mcg DAILY GT 09/11/16 10:00 10/11/16 09:59 09/13/16 09:00 Lorazepam (Ativan 2mg/ml 1ml) 2 mg Q2H PRN IV For Anxiety 09/11/16 07:30 09/18/16 07:29 09/12/16 00:49 Morphine Sulfate (Morphine Sulfate) 4 mg Q4H PRN IVP Severe Pain (Pain Scale 7-10) 09/11/16 07:30 09/18/16 07:29 Ondansetron HCl (Zofran) 4 mg Q6H PRN IVP Nausea & Vomiting 09/11/16 07:30 10/11/16 07:29 09/11/16 12:36 Oxcarbazepine (Trileptal) 300 mg Q12HR GT 09/11/16 10:00 10/11/16 09:59 09/13/16 09:00 Pantoprazole (Protonix) 40 mg EVERY 12 HOURS IVP 09/11/16 17:30 10/11/16 17:29 09/13/16 10:40 Polyethylene Glycol (Miralax) 17 gm DAILYPRN PRN ORAL Constipation 09/11/16 07:30 10/11/16 07:29 Sucralfate (Carafate) 1 gm FOUR TIMES A DAY GT 09/11/16 09:30 10/11/16 09:29 09/13/16 09:00 Tigecycline/ Dextrose (Tygacil/D5W 100ml) 100 ml @ 200 mls/hr Q12H IVPB 09/11/16 12:00 09/18/16 11:59 09/12/16 23:45 Vancomycin HCl 1 ea 1 ea DAILY PRN MISC . 09/13/16 09:15 10/13/16 09:14 Vancomycin HCl/ Dextrose (Vancomycin/D5W 250ml) 250 ml @ 167 mls/hr Q12H IVPB 09/13/16 20:00 09/18/16 19:59 GLYNN BURGOS M.D. Sep 13, 2016 11:43
[2016-09-13 12:00] VITALS: BP 121/60
--- NOTE | 2016-09-13 14:44 | Pulmonology Progress Note ---
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, 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 with: nurses, consultants, supportive employment case manager Subjective ROS Limited/Unobtainable: Yes Allergies: Coded Allergies: NO KNOWN DRUG ALLERGIES (Verified Allergy, Unknown, 09/11/16) Objective Last 24 Hour Vital Signs Date Time Temp Pulse Resp B/P Pulse Ox O2 Delivery O2 Flow Rate FiO2 09/13/16 12:00 30.0 09/13/16 12:00 97.7 78 15 121/60 99 Mechanical Ventilator 30 09/13/16 11:27 80 23 30 09/13/16 09:03 87 25 30 09/13/16 08:00 30.0 09/13/16 08:00 98.8 78 20 122/68 100 Mechanical Ventilator 30 09/13/16 08:00 75 09/13/16 06:37 59 14 30 09/13/16 05:26 69 16 30 09/13/16 04:00 40.0 09/13/16 04:00 97.9 65 18 95/56 99 Mechanical Ventilator 30 09/13/16 03:27 58 14 30 09/13/16 01:30 67 14 30 09/13/16 00:00 97.9 85 18 150/80 100 Mechanical Ventilator 40 09/13/16 00:00 72 09/13/16 00:00 40.0 09/12/16 23:30 70 15 40 09/12/16 21:00 82 27 40 09/12/16 20:15 97.9 82 21 138/80 100 Mechanical Ventilator 40 09/12/16 20:00 40.0 09/12/16 20:00 80 09/12/16 19:30 84 14 40 09/12/16 16:31 80 18 40 09/12/16 16:00 97.9 72 19 118/81 100 Mechanical Ventilator 40 09/12/16 16:00 40.0 09/12/16 14:57 79 19 40 Intake and Output 09/12/16 09/13/16 19:00 07:00 Intake Total 1620 ml 2244 ml Output Total 1000 ml 2450 ml Balance 620 ml -206 ml Free Water 50 ml IV Total 1310 ml 1834 ml Tube Feeding 210 ml 360 ml Other 50 ml 50 ml Output Urine Total 1000 ml 2450 ml # Bowel Movements 1 General Appearance: cachetic HEENT: normocephalic Respiratory/Chest: chest wall non-tender, lungs clear Cardiovascular: normal peripheral pulses, normal rate Abdomen: normal bowel sounds, soft, non tender Extremities: no cyanosis 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 Complete 09/11/16 05:15 Nasal Nares Influenza Types A,B Antigen (RYDER) - Final Complete 09/11/16 00:45 Urine,Clean Catch Urine Culture - Preliminary Proteus Mirabilis Gram Negative Bacillus 2 Resulted Laboratory Tests 09/13/16 07:00: White Blood Count 7.5#, Red Blood Count 3.60L, Hemoglobin 10.4L, Hematocrit 33.9L, Mean Corpuscular Volume 94, Mean Corpuscular Hemoglobin 28.8, Mean Corpuscular Hemoglobin Concent 30.6L, Red Cell Distribution Width 14.1, Platelet Count 326, Mean Platelet Volume 7.9, Neutrophils (%) (Auto) 54.1, Lymphocytes (%) (Auto) 27.3, Monocytes (%) (Auto) 11.5H, Eosinophils (%) (Auto) 6.3H, Basophils (%) (Auto) 0.8, Prothrombin Time 11.2, Prothromb Time International Ratio 1.1, Activated Partial Thromboplast Time 32, Sodium Level 135, Potassium Level 3.7, Chloride Level 97L, Carbon Dioxide Level 25, Anion Gap 13, Blood Urea Nitrogen 15, Creatinine 0.7, Estimat Glomerular Filtration Rate > 60, Glucose Level 102, Calcium Level 8.9, Phosphorus Level 3.5, Magnesium Level 2.0, Total Bilirubin 0.2, Aspartate Amino Transf (AST/SGOT) 11, Alanine Aminotransferase (ALT/SGPT) 11, Alkaline Phosphatase 104, Total Protein 6.8, Albumin 3.0L, Globulin 3.8, Albumin/Globulin Ratio 0.7L, Vancomycin Level Trough 25.5H Current Medications Medications (Trade) Dose Ordered Sig/Wanda Route PRN Reason Start Time Stop Time Status Last Admin Dose Admin Acetaminophen (Tylenol) 650 mg Q4H PRN ORAL FEVER>100.5 09/11/16 08:00 10/11/16 07:59 Albuterol/ Ipratropium (DuoNeb 0.5-3(2.5)mg/3ml) 3 ml Q4H PRN HHN Shortness of Breath 09/11/16 09:30 09/16/16 09:29 Dextrose (Dextrose 50%) STAT PRN IV Hypoglycemia 09/11/16 07:30 10/11/16 07:29 Levothyroxine Sodium (Synthroid) 50 mcg DAILY GT 09/11/16 10:00 10/11/16 09:59 09/13/16 09:00 Lorazepam (Ativan 2mg/ml 1ml) 2 mg Q2H PRN IV For Anxiety 09/11/16 07:30 09/18/16 07:29 09/12/16 00:49 Meropenem/Sodium Chloride (Merrem/Sodium Chloride 100ml bag) 100 ml @ 200 mls/hr Q8HR IVPB 09/13/16 14:00 09/18/16 13:59 09/13/16 14:15 Morphine Sulfate (Morphine Sulfate) 4 mg Q4H PRN IVP Severe Pain (Pain Scale 7-10) 09/11/16 07:30 09/18/16 07:29 Ondansetron HCl (Zofran) 4 mg Q6H PRN IVP Nausea & Vomiting 09/11/16 07:30 10/11/16 07:29 09/11/16 12:36 Oxcarbazepine (Trileptal) 300 mg Q12HR GT 09/11/16 10:00 10/11/16 09:59 09/13/16 09:00 Pantoprazole 40 mg 40 mg EVERY 12 HOURS IVP 09/11/16 17:30 10/11/16 17:29 09/13/16 10:40 Polyethylene Glycol (Miralax) 17 gm DAILYPRN PRN ORAL Constipation 09/11/16 07:30 10/11/16 07:29 Sucralfate (Carafate) 1 gm FOUR TIMES A DAY GT 09/11/16 09:30 10/11/16 09:29 09/13/16 14:14 MIKAYLA WILLOUGHBY Sep 13, 2016 14:44
[2016-09-13 16:00] VITALS: BP 147/90
[2016-09-13] MEDS ORDERED: Tubing IV Secondary IV ONE (17:10)
[2016-09-13 20:00] VITALS: BP 137/99
[2016-09-13] MEDS ORDERED: Vancomycin 750mg/D5W 250ml IVPB SCH ×2 (20:00)
[2016-09-14] VITALS (7 sets, daily range): BP systolic 108–140; BP diastolic 57–94
[2016-09-14 05:35] LABS: EOSINOPHILS % (AUTO) 7.3 % (0.0-3.0); MEAN CORPUSCULAR HGB CONC 32.2 G/DL (32.0-36.0); MEAN CORPUSCULAR VOLUME 93 FL (80-99); MEAN PLATELET VOLUME 7.6 FL (6.5-10.1); MONOCYTES % (AUTO) 13.5 % (1.0-10.0); NEUTROPHILS % (AUTO) 49.2 % (45.0-75.0); PLATELET COUNT 322 K/UL (150-450); RED BLOOD COUNT 3.45 M/UL (4.70-6.10); RED CELL DISTRIBUTION WIDTH 13.8 % (11.6-14.8); WHITE BLOOD COUNT 7.2 K/UL (4.8-10.8)
[2016-09-14 05:53] LABS: ANION GAP 11 (5-15); CALCIUM 9.1 mg/dL (8.6-10.2); CARBON DIOXIDE 26 mEQ/L (20-30); CHLORIDE 100 mEQ/L (98-107); CREATININE 0.6 mg/dL (0.7-1.2); GLOMERULAR FILTRATION RATE > 60 mL/min (>60); HEMOLYSIS 5; POTASSIUM 4.1 mEQ/L (3.4-4.9); SODIUM 137 mEQ/L (135-145)
[2016-09-14] MEDS: OXcarbazepine 150mg tab GT SCH ×2 (09:45→20:00)
[2016-09-14] MEDS: Sucralfate 1gm tab GT SCH ×4 (09:45→20:00)
[2016-09-14] MEDS: Pantoprazole Inj IVP SCH ×2 (09:46→20:00)
--- NOTE | 2016-09-14 11:22 | GI Progress Note ---
Assessment/Plan Problems: (1) Dementia ICD Codes: F03.90 - Dementia SNOMED: 80231340 (2) Upper respiratory infection ICD Codes: J06.9 - Acute upper respiratory infection, unspecified SNOMED: 90907601 (3) Alzheimer's dementia ICD Codes: G30.9 - Alzheimer's disease, unspecified SNOMED: 14868962 (4) Gastrostomy tube dependent ICD Codes: Z93.1 - Gastrostomy tube dependent SNOMED: 997220546 (5) Upper GI bleed ICD Codes: K92.2 - Upper gastrointestinal hemorrhage SNOMED: 33325106 (6) Feeding by G-tube ICD Codes: Z93.1 - Gastrostomy status SNOMED: 632818489, 980246381 (7) Hypoalbuminemia ICD Codes: E88.09 - Other disorders of plasma-protein metabolism, not elsewhere classified SNOMED: 024984213 (8) Gastritis ICD Codes: K29.70 - Gastritis SNOMED: 5750600 (9) Esophagitis ICD Codes: K20.9 - Esophagitis SNOMED: 67564542 (10) Anemia ICD Codes: D64.9 - Anemia SNOMED: 155394333 (11) C. difficile colitis ICD Codes: A04.7 - C. difficile colitis SNOMED: 947721226 Status: stable Status Narrative Discussed with Dr. Wilson. Assessment/Plan ok for DC per GI standpoint defer any endoscopic procedures at this time given bleed most likely from severe esophagitis stable H&H PPI BID carafate reglan reflux measures GTF fu labs Subjective Subjective limited Objective Last 24 Hour Vital Signs Date Time Temp Pulse Resp B/P Pulse Ox O2 Delivery O2 Flow Rate FiO2 09/14/16 10:30 60 14 30 09/14/16 09:11 61 14 30 09/14/16 09:00 30.0 09/14/16 08:00 97.5 55 14 127/69 100 Mechanical Ventilator 30 09/14/16 08:00 57 09/14/16 07:29 60 14 30 09/14/16 05:20 76 19 30 09/14/16 04:00 85 09/14/16 04:00 97.0 68 18 140/85 99 Mechanical Ventilator 09/14/16 04:00 30.0 09/14/16 03:11 78 18 30 09/14/16 01:26 82 22 30 09/14/16 00:00 97.7 64 18 123/57 99 Room Air 09/14/16 00:00 30.0 09/13/16 23:22 71 18 30 09/13/16 21:12 73 23 30 09/13/16 20:00 30.0 09/13/16 20:00 98.1 80 20 137/99 98 Mechanical Ventilator 30 09/13/16 20:00 86 09/13/16 19:30 68 15 30 09/13/16 16:57 78 16 30 09/13/16 16:00 30.0 09/13/16 16:00 93 09/13/16 16:00 97.7 82 21 147/90 98 Mechanical Ventilator 30 09/13/16 14:56 95 18 30 09/13/16 13:15 82 18 30 09/13/16 12:00 30.0 09/13/16 12:00 97.7 78 15 121/60 99 Mechanical Ventilator 30 09/13/16 11:27 80 23 30 Intake and Output 09/13/16 09/14/16 19:00 07:00 Intake Total 860 ml 770 ml Output Total 600 ml 1650 ml Balance 260 ml -880 ml Free Water 100 ml 300 ml IV Total 300 ml 100 ml Tube Feeding 360 ml 370 ml Other 100 ml Output Urine Total 600 ml 1650 ml # Voids 1 # Bowel Movements 1 1 Laboratory Tests Test 09/14/16 03:45 White Blood Count 7.2 K/UL (4.8-10.8) Red Blood Count 3.45 M/UL (4.70-6.10) L Hemoglobin 10.4 G/DL (14.2-18.0) L Hematocrit 32.2 % (42.0-52.0) L Mean Corpuscular Volume 93 FL (80-99) Mean Corpuscular Hemoglobin 30.0 PG (27.0-31.0) Mean Corpuscular Hemoglobin Concent 32.2 G/DL (32.0-36.0) Red Cell Distribution Width 13.8 % (11.6-14.8) Platelet Count 322 K/UL (150-450) Mean Platelet Volume 7.6 FL (6.5-10.1) Neutrophils (%) (Auto) 49.2 % (45.0-75.0) Lymphocytes (%) (Auto) 29.0 % (20.0-45.0) Monocytes (%) (Auto) 13.5 % (1.0-10.0) H Eosinophils (%) (Auto) 7.3 % (0.0-3.0) H Basophils (%) (Auto) 1.0 % (0.0-2.0) Sodium Level 137 mEQ/L (135-145) Potassium Level 4.1 mEQ/L (3.4-4.9) Chloride Level 100 mEQ/L (98-107) Carbon Dioxide Level 26 mEQ/L (20-30) Anion Gap 11 (5-15) Blood Urea Nitrogen 10 mg/dL (7-23) Creatinine 0.6 mg/dL (0.7-1.2) L Estimat Glomerular Filtration Rate > 60 mL/min (>60) Glucose Level 107 mg/dL (74-106) H Calcium Level 9.1 mg/dL (8.6-10.2) Height (Feet): 6 Height (Inches): 1.00 Weight (Pounds): 185 General Appearance: alert Cardiovascular: normal rate Respiratory/Chest: other - mech vent Abdominal Exam: soft, GT site - c/d/i Objective Endoscopy Procedure Note Indication for Procedure: gib Procedures Performed: EGD Operative Findings/Diagnosis: esophagitis FRAN WILSON - Oct 27, 2015 14:50 Arabella Quesada NRoselyn Sep 14, 2016 11:22
--- NOTE | 2016-09-14 12:48 | Pulmonology Progress Note ---
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, 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, 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 with: consultants, onsite case manager Subjective ROS Limited/Unobtainable: No Constitutional: Reports: no symptoms HEENT: Repors: no symptoms Allergies: Coded Allergies: NO KNOWN DRUG ALLERGIES (Verified Allergy, Unknown, 09/11/16) Objective Last 24 Hour Vital Signs Date Time Temp Pulse Resp B/P Pulse Ox O2 Delivery O2 Flow Rate FiO2 09/14/16 12:00 30.0 09/14/16 10:30 60 14 30 09/14/16 09:11 61 14 30 09/14/16 09:00 30.0 09/14/16 08:00 97.5 55 14 127/69 100 Mechanical Ventilator 30 09/14/16 08:00 57 09/14/16 07:29 60 14 30 09/14/16 05:20 76 19 30 09/14/16 04:00 85 09/14/16 04:00 97.0 68 18 140/85 99 Mechanical Ventilator 09/14/16 04:00 30.0 09/14/16 03:11 78 18 30 09/14/16 01:26 82 22 30 09/14/16 00:00 97.7 64 18 123/57 99 Room Air 09/14/16 00:00 30.0 09/13/16 23:22 71 18 30 09/13/16 21:12 73 23 30 09/13/16 20:00 30.0 09/13/16 20:00 98.1 80 20 137/99 98 Mechanical Ventilator 30 09/13/16 20:00 86 09/13/16 19:30 68 15 30 09/13/16 16:57 78 16 30 09/13/16 16:00 30.0 09/13/16 16:00 93 09/13/16 16:00 97.7 82 21 147/90 98 Mechanical Ventilator 30 09/13/16 14:56 95 18 30 09/13/16 13:15 82 18 30 Intake and Output 09/13/16 09/14/16 19:00 07:00 Intake Total 860 ml 825 ml Output Total 600 ml 1650 ml Balance 260 ml -825 ml Free Water 100 ml 300 ml IV Total 300 ml 100 ml Tube Feeding 360 ml 425 ml Other 100 ml Output Urine Total 600 ml 1650 ml # Voids 1 # Bowel Movements 1 1 General Appearance: WD/WN HEENT: normocephalic, atraumatic, status post trach Respiratory/Chest: chest wall non-tender, lungs clear Cardiovascular: normal peripheral pulses, normal rate Abdomen: normal bowel sounds, soft, non tender Genitourinary: normal external genitalia 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, no motor/sensory deficits Lymphatic: no neck adenopathy Laboratory Tests 09/14/16 03:45: White Blood Count 7.2, Red Blood Count 3.45L, Hemoglobin 10.4L, Hematocrit 32.2L , Mean Corpuscular Volume 93, Mean Corpuscular Hemoglobin 30.0, Mean Corpuscular Hemoglobin Concent 32.2, Red Cell Distribution Width 13.8, Platelet Count 322, Mean Platelet Volume 7.6, Neutrophils (%) (Auto) 49.2, Lymphocytes (% ) (Auto) 29.0, Monocytes (%) (Auto) 13.5H, Eosinophils (%) (Auto) 7.3H, Basophils (%) (Auto) 1.0, Sodium Level 137, Potassium Level 4.1, Chloride Level 100, Carbon Dioxide Level 26, Anion Gap 11, Blood Urea Nitrogen 10, Creatinine 0.6L, Estimat Glomerular Filtration Rate > 60, Glucose Level 107H, Calcium Level 9.1 Current Medications Medications (Trade) Dose Ordered Sig/Wanda Route PRN Reason Start Time Stop Time Status Last Admin Dose Admin Acetaminophen (Tylenol) 650 mg Q4H PRN ORAL FEVER>100.5 09/11/16 08:00 10/11/16 07:59 Albuterol/ Ipratropium (DuoNeb 0.5-3(2.5)mg/3ml) 3 ml Q4H PRN HHN Shortness of Breath 09/11/16 09:30 09/16/16 09:29 Dextrose (Dextrose 50%) STAT PRN IV Hypoglycemia 09/11/16 07:30 10/11/16 07:29 Levothyroxine Sodium (Synthroid) 50 mcg DAILY GT 09/11/16 10:00 10/11/16 09:59 09/14/16 09:45 Lorazepam (Ativan 2mg/ml 1ml) 2 mg Q2H PRN IV For Anxiety 09/11/16 07:30 09/18/16 07:29 09/12/16 00:49 Meropenem/Sodium Chloride (Merrem/Sodium Chloride 100ml bag) 100 ml @ 200 mls/hr Q8HR IVPB 09/13/16 14:00 09/18/16 13:59 09/14/16 06:21 Morphine Sulfate (Morphine Sulfate) 4 mg Q4H PRN IVP Severe Pain (Pain Scale 7-10) 09/11/16 07:30 09/18/16 07:29 Ondansetron HCl (Zofran) 4 mg Q6H PRN IVP Nausea & Vomiting 09/11/16 07:30 10/11/16 07:29 09/11/16 12:36 Oxcarbazepine (Trileptal) 300 mg Q12HR GT 09/11/16 10:00 10/11/16 09:59 09/14/16 09:45 Pantoprazole 40 mg 40 mg EVERY 12 HOURS IVP 09/11/16 17:30 10/11/16 17:29 09/14/16 09:46 Polyethylene Glycol (Miralax) 17 gm DAILYPRN PRN ORAL Constipation 09/11/16 07:30 10/11/16 07:29 Sucralfate (Carafate) 1 gm FOUR TIMES A DAY GT 09/11/16 09:30 10/11/16 09:29 09/14/16 09:45 MIKAYLA WILLOUGHBY Sep 14, 2016 12:48
--- NOTE | 2016-09-14 19:21 | Infectious Diseases Prog Note ---
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, revision 02/08, replacement 03/05 // Chronic encephalopathy / Dementia // NH resident // Functional quadriplegia / bedbound // Frequent hospital re-admissions // MDRO colonized ( MRSA, VRE, KPC, MDR-ACB ) // NKDA // Full Code PLAN: - cont IV Merrem d# 2 / ( 09/13 SP Vanco, Tygacil and Cefepime d# 2 ) - monitor CBC, temperatures, - monitor cultures ( Bl,Sp ) - monitor BMP - monitor CXR - vent support, trach care, aspiration precautions Subjective Constitutional: Denies: anorexia, chills, drenching sweats, fatigue, fever, no symptoms, other Allergies: Coded Allergies: NO KNOWN DRUG ALLERGIES (Verified Allergy, Unknown, 09/11/16) Objective Vital Signs Last 24 Hour Vital Signs Date Time Temp Pulse Resp B/P Pulse Ox O2 Delivery O2 Flow Rate FiO2 09/14/16 18:57 76 14 30 09/14/16 16:50 79 18 30 09/14/16 16:00 97.5 83 19 138/80 98 Mechanical Ventilator 30 09/14/16 16:00 30.0 09/14/16 16:00 77 09/14/16 15:00 82 24 30 09/14/16 12:59 60 14 30 09/14/16 12:00 30.0 09/14/16 12:00 59 09/14/16 12:00 97.9 68 15 113/66 98 Mechanical Ventilator 30 09/14/16 10:30 60 14 30 09/14/16 09:11 61 14 30 09/14/16 09:00 30.0 09/14/16 08:00 97.5 55 14 127/69 100 Mechanical Ventilator 30 09/14/16 08:00 57 09/14/16 07:29 60 14 30 09/14/16 05:20 76 19 30 09/14/16 04:00 85 09/14/16 04:00 97.0 68 18 140/85 99 Mechanical Ventilator 09/14/16 04:00 30.0 09/14/16 03:11 78 18 30 09/14/16 01:26 82 22 30 09/14/16 00:00 97.7 64 18 123/57 99 Room Air 09/14/16 00:00 30.0 09/13/16 23:22 71 18 30 09/13/16 21:12 73 23 30 09/13/16 20:00 30.0 09/13/16 20:00 98.1 80 20 137/99 98 Mechanical Ventilator 30 09/13/16 20:00 86 09/13/16 19:30 68 15 30 Height (Feet): 6 Height (Inches): 1.00 Weight (Pounds): 185 HEENT: anicteric Respiratory/Chest: normal breath sounds Cardiovascular: regular rhythm Abdomen: no organomegaly Laboratory Tests Test 09/14/16 03:45 White Blood Count 7.2 K/UL (4.8-10.8) Red Blood Count 3.45 M/UL (4.70-6.10) L Hemoglobin 10.4 G/DL (14.2-18.0) L Hematocrit 32.2 % (42.0-52.0) L Mean Corpuscular Volume 93 FL (80-99) Mean Corpuscular Hemoglobin 30.0 PG (27.0-31.0) Mean Corpuscular Hemoglobin Concent 32.2 G/DL (32.0-36.0) Red Cell Distribution Width 13.8 % (11.6-14.8) Platelet Count 322 K/UL (150-450) Mean Platelet Volume 7.6 FL (6.5-10.1) Neutrophils (%) (Auto) 49.2 % (45.0-75.0) Lymphocytes (%) (Auto) 29.0 % (20.0-45.0) Monocytes (%) (Auto) 13.5 % (1.0-10.0) H Eosinophils (%) (Auto) 7.3 % (0.0-3.0) H Basophils (%) (Auto) 1.0 % (0.0-2.0) Sodium Level 137 mEQ/L (135-145) Potassium Level 4.1 mEQ/L (3.4-4.9) Chloride Level 100 mEQ/L (98-107) Carbon Dioxide Level 26 mEQ/L (20-30) Anion Gap 11 (5-15) Blood Urea Nitrogen 10 mg/dL (7-23) Creatinine 0.6 mg/dL (0.7-1.2) L Estimat Glomerular Filtration Rate > 60 mL/min (>60) Glucose Level 107 mg/dL (74-106) H Calcium Level 9.1 mg/dL (8.6-10.2) Current Medications Medications (Trade) Dose Ordered Sig/Wanda Route PRN Reason Start Time Stop Time Status Last Admin Dose Admin Acetaminophen (Tylenol) 650 mg Q4H PRN ORAL FEVER>100.5 09/11/16 08:00 10/11/16 07:59 Albuterol/ Ipratropium (DuoNeb 0.5-3(2.5)mg/3ml) 3 ml Q4H PRN HHN Shortness of Breath 09/11/16 09:30 09/16/16 09:29 Dextrose (Dextrose 50%) STAT PRN IV Hypoglycemia 09/11/16 07:30 10/11/16 07:29 Levothyroxine Sodium (Synthroid) 50 mcg DAILY GT 09/11/16 10:00 10/11/16 09:59 09/14/16 09:45 Lorazepam (Ativan 2mg/ml 1ml) 2 mg Q2H PRN IV For Anxiety 09/11/16 07:30 09/18/16 07:29 09/12/16 00:49 Meropenem/Sodium Chloride (Merrem/Sodium Chloride 100ml bag) 100 ml @ 200 mls/hr Q8HR IVPB 09/13/16 14:00 09/18/16 13:59 09/14/16 13:54 Morphine Sulfate (Morphine Sulfate) 4 mg Q4H PRN IVP Severe Pain (Pain Scale 7-10) 09/11/16 07:30 09/18/16 07:29 Ondansetron HCl (Zofran) 4 mg Q6H PRN IVP Nausea & Vomiting 09/11/16 07:30 10/11/16 07:29 09/11/16 12:36 Oxcarbazepine (Trileptal) 300 mg Q12HR GT 09/11/16 10:00 10/11/16 09:59 09/14/16 09:45 Pantoprazole 40 mg 40 mg EVERY 12 HOURS IVP 09/11/16 17:30 10/11/16 17:29 09/14/16 09:46 Polyethylene Glycol (Miralax) 17 gm DAILYPRN PRN ORAL Constipation 09/11/16 07:30 10/11/16 07:29 Sucralfate (Carafate) 1 gm FOUR TIMES A DAY GT 09/11/16 09:30 10/11/16 09:29 09/14/16 17:06 GLYNN BURGOS M.D. Sep 14, 2016 19:20
[2016-09-15 04:40] VITALS: BP 111/69
[2016-09-15 06:06] LABS: BASOPHILS % (AUTO) 0.9 % (0.0-2.0); EOSINOPHILS % (AUTO) 3.4 % (0.0-3.0); LYMPHOCYTES % (AUTO) 24.8 % (20.0-45.0); MEAN CORPUSCULAR HEMOGLOBIN 28.7 PG (27.0-31.0); MEAN CORPUSCULAR HGB CONC 30.5 G/DL (32.0-36.0); MEAN CORPUSCULAR VOLUME 94 FL (80-99); MEAN PLATELET VOLUME 7.1 FL (6.5-10.1); MONOCYTES % (AUTO) 12.9 % (1.0-10.0); NEUTROPHILS % (AUTO) 58.1 % (45.0-75.0); PLATELET COUNT 361 K/UL (150-450); RED CELL DISTRIBUTION WIDTH 13.8 % (11.6-14.8); WHITE BLOOD COUNT 8.6 K/UL (4.8-10.8)
[2016-09-15 06:15] LABS: ANION GAP 10 (5-15); CALCIUM 8.8 mg/dL (8.6-10.2); CARBON DIOXIDE 26 mEQ/L (20-30); CHLORIDE 101 mEQ/L (98-107); CREATININE 0.5 mg/dL (0.7-1.2); GLOMERULAR FILTRATION RATE > 60 mL/min (>60); HEMOLYSIS 0; SODIUM 137 mEQ/L (135-145)
[2016-09-15 08:00] VITALS: BP 124/73
[2016-09-15] MEDS: Sucralfate 1gm tab GT SCH ×4 (08:18→20:49)
[2016-09-15] MEDS: OXcarbazepine 150mg tab GT SCH ×2 (08:18→20:35)
[2016-09-15] MEDS: Pantoprazole Inj IVP SCH ×2 (08:19→20:34)
--- NOTE | 2016-09-15 11:08 | GI Progress Note ---
Assessment/Plan Problems: (1) Dementia ICD Codes: F03.90 - Dementia SNOMED: 18889891 (2) Upper respiratory infection ICD Codes: J06.9 - Acute upper respiratory infection, unspecified SNOMED: 16196669 (3) Alzheimer's dementia ICD Codes: G30.9 - Alzheimer's disease, unspecified SNOMED: 34637582 (4) Gastrostomy tube dependent ICD Codes: Z93.1 - Gastrostomy tube dependent SNOMED: 288671713 (5) Upper GI bleed ICD Codes: K92.2 - Upper gastrointestinal hemorrhage SNOMED: 17724424 (6) Feeding by G-tube ICD Codes: Z93.1 - Gastrostomy status SNOMED: 665622477, 319590136 (7) Hypoalbuminemia ICD Codes: E88.09 - Other disorders of plasma-protein metabolism, not elsewhere classified SNOMED: 784891081 (8) Gastritis ICD Codes: K29.70 - Gastritis SNOMED: 3938391 (9) Esophagitis ICD Codes: K20.9 - Esophagitis SNOMED: 07539630 (10) Anemia ICD Codes: D64.9 - Anemia SNOMED: 727734996 (11) C. difficile colitis ICD Codes: A04.7 - C. difficile colitis SNOMED: 833997257 Status: stable Status Narrative Discussed with Dr. Wilson. Assessment/Plan ok for DC per GI standpoint defer any endoscopic procedures at this time given bleed most likely from severe esophagitis stable H&H PPI BID carafate reglan reflux measures GTF fu labs Subjective Subjective limited Objective Last 24 Hour Vital Signs Date Time Temp Pulse Resp B/P Pulse Ox O2 Delivery O2 Flow Rate FiO2 09/15/16 09:00 68 15 30 09/15/16 08:07 30.0 09/15/16 08:00 97.2 77 14 124/73 99 Mechanical Ventilator 30 09/15/16 08:00 77 09/15/16 07:30 70 14 30 09/15/16 05:14 78 14 30 09/15/16 04:40 98.2 70 14 111/69 96 Mechanical Ventilator 09/15/16 04:00 30.0 09/15/16 04:00 80 09/15/16 03:19 71 14 30 09/15/16 01:14 65 14 30 09/15/16 00:00 30.0 09/15/16 00:00 70 09/14/16 23:40 97.3 66 15 108/68 100 Mechanical Ventilator 09/14/16 23:06 65 15 30 09/14/16 21:05 74 17 30 09/14/16 20:00 75 09/14/16 20:00 30.0 09/14/16 20:00 97.7 70 17 125/94 99 Mechanical Ventilator 30 09/14/16 18:57 76 14 30 09/14/16 16:50 79 18 30 09/14/16 16:00 97.5 83 19 138/80 98 Mechanical Ventilator 30 09/14/16 16:00 30.0 09/14/16 16:00 77 09/14/16 15:00 82 24 30 09/14/16 12:59 60 14 30 09/14/16 12:00 30.0 09/14/16 12:00 59 09/14/16 12:00 97.9 68 15 113/66 98 Mechanical Ventilator 30 Intake and Output 09/14/16 09/15/16 19:00 07:00 Intake Total 1060 ml 1105 ml Output Total 500 ml 650 ml Balance 560 ml 455 ml Free Water 300 ml 300 ml IV Total 100 ml 200 ml Tube Feeding 660 ml 605 ml Output Urine Total 500 ml 650 ml # Bowel Movements 2 2 Laboratory Tests Test 09/15/16 04:30 White Blood Count 8.6 K/UL (4.8-10.8) Red Blood Count 3.60 M/UL (4.70-6.10) L Hemoglobin 10.3 G/DL (14.2-18.0) L Hematocrit 33.8 % (42.0-52.0) L Mean Corpuscular Volume 94 FL (80-99) Mean Corpuscular Hemoglobin 28.7 PG (27.0-31.0) Mean Corpuscular Hemoglobin Concent 30.5 G/DL (32.0-36.0) L Red Cell Distribution Width 13.8 % (11.6-14.8) Platelet Count 361 K/UL (150-450) Mean Platelet Volume 7.1 FL (6.5-10.1) Neutrophils (%) (Auto) 58.1 % (45.0-75.0) Lymphocytes (%) (Auto) 24.8 % (20.0-45.0) Monocytes (%) (Auto) 12.9 % (1.0-10.0) H Eosinophils (%) (Auto) 3.4 % (0.0-3.0) H Basophils (%) (Auto) 0.9 % (0.0-2.0) Sodium Level 137 mEQ/L (135-145) Potassium Level 4.0 mEQ/L (3.4-4.9) Chloride Level 101 mEQ/L (98-107) Carbon Dioxide Level 26 mEQ/L (20-30) Anion Gap 10 (5-15) Blood Urea Nitrogen 13 mg/dL (7-23) Creatinine 0.5 mg/dL (0.7-1.2) L Estimat Glomerular Filtration Rate > 60 mL/min (>60) Glucose Level 118 mg/dL (74-106) H Calcium Level 8.8 mg/dL (8.6-10.2) Height (Feet): 6 Height (Inches): 1.00 Weight (Pounds): 185 General Appearance: no apparent distress, alert Cardiovascular: normal rate Respiratory/Chest: other - [facility] Abdominal Exam: GT site - c/d/i Objective Endoscopy Procedure Note Indication for Procedure: gib Procedures Performed: EGD Operative Findings/Diagnosis: esophagitis FRAN WILSON - Oct 27, 2015 14:50 Arabella Quesada N.P. Sep 15, 2016 11:08
--- NOTE | 2016-09-15 11:50 | Pulmonology Progress Note ---
Assessment/Plan Problems: (1) Respiratory failure, [id number] (2) Aspiration pneumonia (3) Tracheobronchitis, chronic (4) Alzheimer's dementia (5) Psychosis (6) Dementia (7) Debility Respiratory: monitor respiratory rate, adjust FIO2 Cardiac: continue to monitor HR/BP Renal: F/U I&O, keep IV fluid Infectious Disease: check cultures, continue antibiotics Gastrointestinal: continue feedings/current rate Endocrine: monitor blood sugar, check TSH, continue sliding scale insulin Hematologic: transfuse if hgb<8.5 Neurologic: PRN Ativan, PRN Morphine, keep patient comfortable Affect: PRN ativan Prophylaxis: Protonix 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, 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 with: nurses, consultants, director case management Subjective ROS Limited/Unobtainable: No Constitutional: Reports: no symptoms HEENT: Repors: no symptoms Respiratory: Reports: no symptoms Cardiovascular: Reports: no symptoms Allergies: Coded Allergies: NO KNOWN DRUG ALLERGIES (Verified Allergy, Unknown, 09/11/16) Objective Last 24 Hour Vital Signs Date Time Temp Pulse Resp B/P Pulse Ox O2 Delivery O2 Flow Rate FiO2 09/15/16 09:00 68 15 30 09/15/16 08:07 30.0 09/15/16 08:00 97.2 77 14 124/73 99 Mechanical Ventilator 30 09/15/16 08:00 77 09/15/16 07:30 70 14 30 09/15/16 05:14 78 14 30 09/15/16 04:40 98.2 70 14 111/69 96 Mechanical Ventilator 09/15/16 04:00 30.0 09/15/16 04:00 80 09/15/16 03:19 71 14 30 09/15/16 01:14 65 14 30 09/15/16 00:00 30.0 09/15/16 00:00 70 09/14/16 23:40 97.3 66 15 108/68 100 Mechanical Ventilator 09/14/16 23:06 65 15 30 09/14/16 21:05 74 17 30 09/14/16 20:00 75 09/14/16 20:00 30.0 09/14/16 20:00 97.7 70 17 125/94 99 Mechanical Ventilator 30 09/14/16 18:57 76 14 30 09/14/16 16:50 79 18 30 09/14/16 16:00 97.5 83 19 138/80 98 Mechanical Ventilator 30 09/14/16 16:00 30.0 09/14/16 16:00 77 09/14/16 15:00 82 24 30 09/14/16 12:59 60 14 30 09/14/16 12:00 30.0 09/14/16 12:00 59 09/14/16 12:00 97.9 68 15 113/66 98 Mechanical Ventilator 30 Intake and Output 09/14/16 09/15/16 19:00 07:00 Intake Total 1060 ml 1105 ml Output Total 500 ml 650 ml Balance 560 ml 455 ml Free Water 300 ml 300 ml IV Total 100 ml 200 ml Tube Feeding 660 ml 605 ml Output Urine Total 500 ml 650 ml # Bowel Movements 2 2 Objective has diarrhia, rectal tube General Appearance: cachetic HEENT: normocephalic, atraumatic Respiratory/Chest: chest wall non-tender, lungs clear Cardiovascular: normal peripheral pulses, normal rate Abdomen: normal bowel sounds, soft, non tender Genitourinary: normal external genitalia Extremities: no clubbing Skin: no rash Laboratory Tests 09/15/16 04:30: White Blood Count 8.6, Red Blood Count 3.60L, Hemoglobin 10.3L, Hematocrit 33.8L , Mean Corpuscular Volume 94, Mean Corpuscular Hemoglobin 28.7, Mean Corpuscular Hemoglobin Concent 30.5L, Red Cell Distribution Width 13.8, Platelet Count 361, Mean Platelet Volume 7.1, Neutrophils (%) (Auto) 58.1, Lymphocytes (%) (Auto) 24.8, Monocytes (%) (Auto) 12.9H, Eosinophils (%) (Auto) 3.4H, Basophils (%) (Auto) 0.9, Sodium Level 137, Potassium Level 4.0, Chloride Level 101, Carbon Dioxide Level 26, Anion Gap 10, Blood Urea Nitrogen 13, Creatinine 0.5L, Estimat Glomerular Filtration Rate > 60, Glucose Level 118H, Calcium Level 8.8 Current Medications Medications (Trade) Dose Ordered Sig/Wanda Route PRN Reason Start Time Stop Time Status Last Admin Dose Admin Acetaminophen (Tylenol) 650 mg Q4H PRN ORAL FEVER>100.5 09/11/16 08:00 10/11/16 07:59 Albuterol/ Ipratropium (DuoNeb 0.5-3(2.5)mg/3ml) 3 ml Q4H PRN HHN Shortness of Breath 09/11/16 09:30 09/16/16 09:29 Dextrose (Dextrose 50%) STAT PRN IV Hypoglycemia 09/11/16 07:30 10/11/16 07:29 Levothyroxine Sodium (Synthroid) 50 mcg DAILY GT 09/11/16 10:00 10/11/16 09:59 09/15/16 08:18 Lorazepam (Ativan 2mg/ml 1ml) 2 mg Q2H PRN IV For Anxiety 09/11/16 07:30 09/18/16 07:29 09/12/16 00:49 Meropenem/Sodium Chloride (Merrem/Sodium Chloride 100ml bag) 100 ml @ 200 mls/hr Q8HR IVPB 09/13/16 14:00 09/18/16 13:59 09/15/16 05:17 Morphine Sulfate (Morphine Sulfate) 4 mg Q4H PRN IVP Severe Pain (Pain Scale 7-10) 09/11/16 07:30 09/18/16 07:29 Ondansetron HCl (Zofran) 4 mg Q6H PRN IVP Nausea & Vomiting 09/11/16 07:30 10/11/16 07:29 09/11/16 12:36 Oxcarbazepine (Trileptal) 300 mg Q12HR GT 09/11/16 10:00 10/11/16 09:59 09/15/16 08:18 Pantoprazole 40 mg 40 mg EVERY 12 HOURS IVP 09/11/16 17:30 10/11/16 17:29 09/15/16 08:19 Polyethylene Glycol (Miralax) 17 gm DAILYPRN PRN ORAL Constipation 09/11/16 07:30 10/11/16 07:29 Sucralfate (Carafate) 1 gm FOUR TIMES A DAY GT 09/11/16 09:30 10/11/16 09:29 09/15/16 08:18 MIKAYLA WILLOUGHBY Sep 15, 2016 11:50
[2016-09-15 12:00] VITALS: BP 95/56
--- NOTE | 2016-09-15 12:06 | Infectious Diseases Prog Note ---
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/23/15, revision 02/08, replacement 03/05 // Chronic encephalopathy / Dementia // NH resident // Functional quadriplegia / bedbound // Frequent hospital re-admissions // MDRO colonized ( MRSA, VRE, KPC, MDR-ACB ) // NKDA // Full Code PLAN: - cont IV Merrem d# 3 / ( 09/13 SP Vanco, Tygacil and Cefepime d# 2 ) - monitor CBC, temperatures, - monitor cultures ( Bl,Sp ) - monitor BMP - monitor CXR - vent support, trach care, aspiration precautions Subjective Gastrointestinal/Abdominal: Reports: diarrhea Allergies: Coded Allergies: NO KNOWN DRUG ALLERGIES (Verified Allergy, Unknown, 09/11/16) Objective Vital Signs Last 24 Hour Vital Signs Date Time Temp Pulse Resp B/P Pulse Ox O2 Delivery O2 Flow Rate FiO2 09/15/16 12:03 30.0 09/15/16 09:00 68 15 30 09/15/16 08:07 30.0 09/15/16 08:00 97.2 77 14 124/73 99 Mechanical Ventilator 30 09/15/16 08:00 77 09/15/16 07:30 70 14 30 09/15/16 05:14 78 14 30 09/15/16 04:40 98.2 70 14 111/69 96 Mechanical Ventilator 09/15/16 04:00 30.0 09/15/16 04:00 80 09/15/16 03:19 71 14 30 09/15/16 01:14 65 14 30 09/15/16 00:00 30.0 09/15/16 00:00 70 09/14/16 23:40 97.3 66 15 108/68 100 Mechanical Ventilator 09/14/16 23:06 65 15 30 09/14/16 21:05 74 17 30 09/14/16 20:00 75 09/14/16 20:00 30.0 09/14/16 20:00 97.7 70 17 125/94 99 Mechanical Ventilator 30 09/14/16 18:57 76 14 30 09/14/16 16:50 79 18 30 09/14/16 16:00 97.5 83 19 138/80 98 Mechanical Ventilator 30 09/14/16 16:00 30.0 09/14/16 16:00 77 09/14/16 15:00 82 24 30 09/14/16 12:59 60 14 30 Height (Feet): 6 Height (Inches): 1.00 Weight (Pounds): 185 HEENT: atraumatic Respiratory/Chest: lungs clear Cardiovascular: normal rate, regular rhythm Abdomen: soft, non tender, no organomegaly Laboratory Tests Test 09/15/16 04:30 White Blood Count 8.6 K/UL (4.8-10.8) Red Blood Count 3.60 M/UL (4.70-6.10) L Hemoglobin 10.3 G/DL (14.2-18.0) L Hematocrit 33.8 % (42.0-52.0) L Mean Corpuscular Volume 94 FL (80-99) Mean Corpuscular Hemoglobin 28.7 PG (27.0-31.0) Mean Corpuscular Hemoglobin Concent 30.5 G/DL (32.0-36.0) L Red Cell Distribution Width 13.8 % (11.6-14.8) Platelet Count 361 K/UL (150-450) Mean Platelet Volume 7.1 FL (6.5-10.1) Neutrophils (%) (Auto) 58.1 % (45.0-75.0) Lymphocytes (%) (Auto) 24.8 % (20.0-45.0) Monocytes (%) (Auto) 12.9 % (1.0-10.0) H Eosinophils (%) (Auto) 3.4 % (0.0-3.0) H Basophils (%) (Auto) 0.9 % (0.0-2.0) Sodium Level 137 mEQ/L (135-145) Potassium Level 4.0 mEQ/L (3.4-4.9) Chloride Level 101 mEQ/L (98-107) Carbon Dioxide Level 26 mEQ/L (20-30) Anion Gap 10 (5-15) Blood Urea Nitrogen 13 mg/dL (7-23) Creatinine 0.5 mg/dL (0.7-1.2) L Estimat Glomerular Filtration Rate > 60 mL/min (>60) Glucose Level 118 mg/dL (74-106) H Calcium Level 8.8 mg/dL (8.6-10.2) Current Medications Medications (Trade) Dose Ordered Sig/Wanda Route PRN Reason Start Time Stop Time Status Last Admin Dose Admin Acetaminophen (Tylenol) 650 mg Q4H PRN ORAL FEVER>100.5 09/11/16 08:00 10/11/16 07:59 Albuterol/ Ipratropium (DuoNeb 0.5-3(2.5)mg/3ml) 3 ml Q4H PRN HHN Shortness of Breath 09/11/16 09:30 09/16/16 09:29 Dextrose (Dextrose 50%) STAT PRN IV Hypoglycemia 09/11/16 07:30 10/11/16 07:29 Levothyroxine Sodium (Synthroid) 50 mcg DAILY GT 09/11/16 10:00 10/11/16 09:59 09/15/16 08:18 Lorazepam (Ativan 2mg/ml 1ml) 2 mg Q2H PRN IV For Anxiety 09/11/16 07:30 09/18/16 07:29 09/12/16 00:49 Meropenem/Sodium Chloride (Merrem/Sodium Chloride 100ml bag) 100 ml @ 200 mls/hr Q8HR IVPB 09/13/16 14:00 09/18/16 13:59 09/15/16 05:17 Morphine Sulfate (Morphine Sulfate) 4 mg Q4H PRN IVP Severe Pain (Pain Scale 7-10) 09/11/16 07:30 09/18/16 07:29 Ondansetron HCl (Zofran) 4 mg Q6H PRN IVP Nausea & Vomiting 09/11/16 07:30 10/11/16 07:29 09/11/16 12:36 Oxcarbazepine (Trileptal) 300 mg Q12HR GT 09/11/16 10:00 10/11/16 09:59 09/15/16 08:18 Pantoprazole 40 mg 40 mg EVERY 12 HOURS IVP 09/11/16 17:30 10/11/16 17:29 09/15/16 08:19 Polyethylene Glycol (Miralax) 17 gm DAILYPRN PRN ORAL Constipation 09/11/16 07:30 10/11/16 07:29 Sucralfate (Carafate) 1 gm FOUR TIMES A DAY GT 09/11/16 09:30 10/11/16 09:29 09/15/16 08:18 GLYNN BURGOS M.D. Sep 15, 2016 12:06
[2016-09-15] MEDS ORDERED: 1/2 NS 1000ml IV ONE (15:27)
[2016-09-15] MEDS ORDERED: NS 275ml ONE (15:27)
[2016-09-15 16:00] VITALS: BP 98/68
[2016-09-15 20:00] VITALS: BP 92/56
[2016-09-16] VITALS (7 sets, daily range): BP systolic 100–139; BP diastolic 59–62
[2016-09-16 05:02] LABS: BASOPHILS % (AUTO) 0.7 % (0.0-2.0); EOSINOPHILS % (AUTO) 2.7 % (0.0-3.0); LYMPHOCYTES % (AUTO) 22.9 % (20.0-45.0); MEAN CORPUSCULAR HEMOGLOBIN 28.9 PG (27.0-31.0); MEAN CORPUSCULAR HGB CONC 30.6 G/DL (32.0-36.0); MEAN CORPUSCULAR VOLUME 95 FL (80-99); MEAN PLATELET VOLUME 7.3 FL (6.5-10.1); MONOCYTES % (AUTO) 6.6 % (1.0-10.0); PLATELET COUNT 332 K/UL (150-450); RED BLOOD COUNT 3.72 M/UL (4.70-6.10); RED CELL DISTRIBUTION WIDTH 14.4 % (11.6-14.8); WHITE BLOOD COUNT 9.9 K/UL (4.8-10.8)
[2016-09-16 05:32] LABS: ANION GAP 10 (5-15); CALCIUM 8.8 mg/dL (8.6-10.2); CARBON DIOXIDE 28 mEQ/L (20-30); CHLORIDE 101 mEQ/L (98-107); CREATININE 0.6 mg/dL (0.7-1.2); GLOMERULAR FILTRATION RATE > 60 mL/min (>60); HEMOLYSIS 5; SODIUM 139 mEQ/L (135-145)
[2016-09-16] MEDS: OXcarbazepine 150mg tab GT SCH ×2 (09:10→21:40)
[2016-09-16] MEDS: Pantoprazole Inj IVP SCH ×2 (09:10→21:40)
[2016-09-16] MEDS: Sucralfate 1gm tab GT SCH ×4 (09:10→21:39)
--- NOTE | 2016-09-16 10:44 | Pulmonology Progress Note ---
Assessment/Plan Assessment/Plan ASSESSMENT acute on chronic respiratory failure aspiration PNA VDRF/trach UTI with hx of recurrent UTI anemia dysphagia, G tube hypothyroidism advanced Alzheimer dementia debility functional quadriplegia PLAN OF CARE LUIS status Vent/trach care pulmonary toeitl ABG in am and ttiarte settings as needed abx, ID follwos CXR on Sunday venous Duplex BLE negative monitor HH, transfuse prn, at baseline GI follows ok for DC from GI standpoint defer any endoscopic procedures at this time given bleed most likely from severe esophagitis stable H&H PPI BID and Carafate continue Reglan reflux measures strict aspiration precautions, GT feeding, monitor tolerance dc plan case discussed and evaluated by supervising physician Subjective Allergies: Coded Allergies: NO KNOWN DRUG ALLERGIES (Verified Allergy, Unknown, 09/11/16) Subjective leukocytosis resolved, afebrile no signs of respiratory distress on current settings HH remains at baseline Objective Last 24 Hour Vital Signs Date Time Temp Pulse Resp B/P Pulse Ox O2 Delivery O2 Flow Rate FiO2 09/16/16 09:26 72 18 30 09/16/16 08:00 68 09/16/16 08:00 98.2 72 14 112/59 98 Mechanical Ventilator 30 09/16/16 08:00 30.0 09/16/16 07:18 83 21 30 09/16/16 05:12 73 16 30 09/16/16 04:00 30.0 09/16/16 04:00 98.6 75 16 121/62 98 Mechanical Ventilator 30 09/16/16 04:00 70 09/16/16 02:58 68 14 30 09/16/16 01:02 66 14 30 09/16/16 00:00 98.6 70 14 100/60 97 Mechanical Ventilator 30 09/16/16 00:00 30.0 09/15/16 22:36 64 14 30 09/15/16 20:57 65 14 30 09/15/16 20:00 98.7 68 14 92/56 97 Mechanical Ventilator 30 09/15/16 20:00 30.0 09/15/16 20:00 66 09/15/16 19:28 83 14 30 09/15/16 17:00 64 14 30 09/15/16 16:00 69 09/15/16 16:00 30.0 09/15/16 16:00 98.2 72 15 98/68 98 Mechanical Ventilator 30 09/15/16 15:00 68 14 30 09/15/16 13:00 69 14 30 09/15/16 12:03 30.0 09/15/16 12:00 97.7 65 14 95/56 97 Mechanical Ventilator 30 09/15/16 12:00 63 09/15/16 11:00 67 14 30 Intake and Output 09/15/16 09/16/16 19:00 07:00 Intake Total 760 ml 850 ml Output Total 350 ml 530 ml Balance 410 ml 320 ml Free Water 150 ml 200 ml IV Total 100 ml 100 ml Tube Feeding 510 ml 550 ml Output Urine Total 250 ml 460 ml Stool Total 100 ml 70 ml General Appearance: no acute distress HEENT: normocephalic, atraumatic, anicteric Respiratory/Chest: lungs clear, no respiratory distress, no accessory muscle use Cardiovascular: normal rate, regular rhythm, no JVD Abdomen: normal bowel sounds, soft, non tender, other - G tube Extremities: no edema Neurologic/Psychiatric: abnormal gait - bedridden, other - awake, not responds to verbal, only tactile stimuli. moves UE, LE rigid Musculoskeletal: atrophy Microbiology Date/Time Source Procedure Growth Status 09/15/16 14:10 Stool Clostridium difficile Toxin Assay - Final Complete Laboratory Tests 09/16/16 03:45: White Blood Count 9.9, Red Blood Count 3.72L, Hemoglobin 10.8L, Hematocrit 35.3L , Mean Corpuscular Volume 95, Mean Corpuscular Hemoglobin 28.9, Mean Corpuscular Hemoglobin Concent 30.6L, Red Cell Distribution Width 14.4, Platelet Count 332, Mean Platelet Volume 7.3, Neutrophils (%) (Auto) 67.0, Lymphocytes (%) (Auto) 22.9, Monocytes (%) (Auto) 6.6, Eosinophils (%) (Auto) 2.7, Basophils (%) (Auto) 0.7, Sodium Level 139, Potassium Level 4.0, Chloride Level 101, Carbon Dioxide Level 28, Anion Gap 10, Blood Urea Nitrogen 13, Creatinine 0.6L, Estimat Glomerular Filtration Rate > 60, Glucose Level 131H, Calcium Level 8.8 Current Medications Medications (Trade) Dose Ordered Sig/Wanda Route PRN Reason Start Time Stop Time Status Last Admin Dose Admin Acetaminophen (Tylenol) 650 mg Q4H PRN ORAL FEVER>100.5 09/11/16 08:00 10/11/16 07:59 Dextrose (Dextrose 50%) STAT PRN IV Hypoglycemia 09/11/16 07:30 10/11/16 07:29 Levothyroxine Sodium (Synthroid) 50 mcg DAILY GT 09/11/16 10:00 10/11/16 09:59 09/16/16 09:10 Lorazepam (Ativan 2mg/ml 1ml) 2 mg Q2H PRN IV For Anxiety 09/11/16 07:30 09/18/16 07:29 09/12/16 00:49 Meropenem/Sodium Chloride (Merrem/Sodium Chloride 100ml bag) 100 ml @ 200 mls/hr Q8HR IVPB 09/13/16 14:00 09/26/16 13:59 09/16/16 06:09 Morphine Sulfate (Morphine Sulfate) 4 mg Q4H PRN IVP Severe Pain (Pain Scale 7-10) 09/11/16 07:30 09/18/16 07:29 Ondansetron HCl (Zofran) 4 mg Q6H PRN IVP Nausea & Vomiting 09/11/16 07:30 10/11/16 07:29 09/11/16 12:36 Oxcarbazepine (Trileptal) 300 mg Q12HR GT 09/11/16 10:00 10/11/16 09:59 09/16/16 09:10 Pantoprazole 40 mg 40 mg EVERY 12 HOURS IVP 09/11/16 17:30 10/11/16 17:29 09/16/16 09:10 Polyethylene Glycol (Miralax) 17 gm DAILYPRN PRN ORAL Constipation 09/11/16 07:30 10/11/16 07:29 Sucralfate (Carafate) 1 gm FOUR TIMES A DAY GT 09/11/16 09:30 10/11/16 09:29 09/16/16 09:10 Amina Garcia NP ([facility]) Sep 16, 2016 10:44
[2016-09-16] MEDS ORDERED: DuoNeb 0.5-3(2.5)mg/3ml neb HHN PRN (10:45)
--- NOTE | 2016-09-16 13:48 | General Progress Note ---
Assessment/Plan Problem List: (1) Dementia ICD Codes: F03.90 - Dementia SNOMED: 80697289 (2) Debility ICD Codes: R53.81 - Debility SNOMED: 19884125 (3) HTN (hypertension) ICD Codes: I10 - HTN (hypertension) SNOMED: 23320217 (4) Anemia ICD Codes: D64.9 - Anemia, unspecified SNOMED: 556021695 (5) Esophagitis ICD Codes: K20.9 - Esophagitis SNOMED: 83121027 Assessment/Plan GTF stable H&H ppi carafate dc planning per primary team Subjective ROS Limited/Unobtainable: No Allergies: Coded Allergies: NO KNOWN DRUG ALLERGIES (Verified Allergy, Unknown, 09/11/16) Objective Last 24 Hour Vital Signs Date Time Temp Pulse Resp B/P Pulse Ox O2 Delivery O2 Flow Rate FiO2 09/16/16 13:06 72 14 30 09/16/16 12:00 98.2 61 14 139/61 96 Mechanical Ventilator 30 09/16/16 12:00 30.0 09/16/16 10:48 90 18 30 09/16/16 09:26 72 18 30 09/16/16 08:00 68 09/16/16 08:00 98.2 72 14 112/59 98 Mechanical Ventilator 30 09/16/16 08:00 30.0 09/16/16 07:18 83 21 30 09/16/16 05:12 73 16 30 09/16/16 04:00 30.0 09/16/16 04:00 98.6 75 16 121/62 98 Mechanical Ventilator 30 09/16/16 04:00 70 09/16/16 02:58 68 14 30 09/16/16 01:02 66 14 30 09/16/16 00:00 98.6 70 14 100/60 97 Mechanical Ventilator 30 09/16/16 00:00 30.0 09/15/16 22:36 64 14 30 09/15/16 20:57 65 14 30 09/15/16 20:00 98.7 68 14 92/56 97 Mechanical Ventilator 30 09/15/16 20:00 30.0 09/15/16 20:00 66 09/15/16 19:28 83 14 30 09/15/16 17:00 64 14 30 09/15/16 16:00 69 09/15/16 16:00 30.0 1/6/17 16:00 98.2 72 15 98/68 98 Mechanical Ventilator 30 09/15/16 15:00 68 14 30 Intake and Output 09/15/16 09/16/16 19:00 07:00 Intake Total 760 ml 850 ml Output Total 350 ml 530 ml Balance 410 ml 320 ml Free Water 150 ml 200 ml IV Total 100 ml 100 ml Tube Feeding 510 ml 550 ml Output Urine Total 250 ml 460 ml Stool Total 100 ml 70 ml Laboratory Tests 09/16/16 03:45: White Blood Count 9.9, Red Blood Count 3.72L, Hemoglobin 10.8L, Hematocrit 35.3L , Mean Corpuscular Volume 95, Mean Corpuscular Hemoglobin 28.9, Mean Corpuscular Hemoglobin Concent 30.6L, Red Cell Distribution Width 14.4, Platelet Count 332, Mean Platelet Volume 7.3, Neutrophils (%) (Auto) 67.0, Lymphocytes (%) (Auto) 22.9, Monocytes (%) (Auto) 6.6, Eosinophils (%) (Auto) 2.7, Basophils (%) (Auto) 0.7, Sodium Level 139, Potassium Level 4.0, Chloride Level 101, Carbon Dioxide Level 28, Anion Gap 10, Blood Urea Nitrogen 13, Creatinine 0.6L, Estimat Glomerular Filtration Rate > 60, Glucose Level 131H, Calcium Level 8.8 Height (Feet): 6 Height (Inches): 1.00 Weight (Pounds): 185 General Appearance: no apparent distress EENT: normal ENT inspection Neck: supple Cardiovascular: normal rate Respiratory/Chest: decreased breath sounds Abdomen: normal bowel sounds, non tender, soft Extremities: non-tender FRAN GALAN Sep 16, 2016 13:48
[2016-09-17 04:07] VITALS: BP 91/61
[2016-09-17 04:47] LABS: BASOPHILS % (AUTO) 0.8 % (0.0-2.0); EOSINOPHILS % (AUTO) 6.7 % (0.0-3.0); LYMPHOCYTES % (AUTO) 25.4 % (20.0-45.0); MEAN CORPUSCULAR HEMOGLOBIN 28.8 PG (27.0-31.0); MEAN CORPUSCULAR HGB CONC 30.1 G/DL (32.0-36.0); MEAN CORPUSCULAR VOLUME 96 FL (80-99); MONOCYTES % (AUTO) 9.6 % (1.0-10.0); NEUTROPHILS % (AUTO) 57.5 % (45.0-75.0); PLATELET COUNT 316 K/UL (150-450); RED BLOOD COUNT 3.41 M/UL (4.70-6.10); RED CELL DISTRIBUTION WIDTH 14.3 % (11.6-14.8); WHITE BLOOD COUNT 9.1 K/UL (4.8-10.8)
[2016-09-17 05:22] LABS: ANION GAP 9 (5-15); CALCIUM 8.9 mg/dL (8.6-10.2); CARBON DIOXIDE 30 mEQ/L (20-30); CHLORIDE 99 mEQ/L (98-107); CREATININE 0.5 mg/dL (0.7-1.2); GLOMERULAR FILTRATION RATE > 60 mL/min (>60); HEMOLYSIS 3; POTASSIUM 4.4 mEQ/L (3.4-4.9); SODIUM 138 mEQ/L (135-145)
[2016-09-17 08:00] VITALS: BP 128/75
[2016-09-17] MEDS: OXcarbazepine 150mg tab GT SCH ×2 (08:13→21:13)
[2016-09-17] MEDS: Sucralfate 1gm tab GT SCH ×4 (08:13→21:13)
[2016-09-17] MEDS: Pantoprazole Inj IVP SCH ×2 (08:13→21:13)
--- NOTE | 2016-09-17 08:56 | Pulmonology Progress Note ---
Assessment/Plan Assessment/Plan ASSESSMENT acute on chronic respiratory failure aspiration PNA VDRF/trach UTI with hx of recurrent UTI anemia dysphagia, G tube hypothyroidism advanced Alzheimer dementia debility functional quadriplegia PLAN OF CARE LUIS status Vent/trach care pulmonary toilet ABG stable on current settings, keep as is and titrate as needed abx, ID follows CXR on Sunday venous Duplex BLE negative monitor HH, transfuse prn, at baseline GI follows ok for DC from GI standpoint defer any endoscopic procedures at this time given bleed most likely from severe esophagitis stable H&H PPI BID and Carafate continue Reglan reflux measures strict aspiration precautions, GT feeding, monitor tolerance dc plan for am GI cleared for dc, awaiting for ID input re recommended abx regimen at SNF case discussed and evaluated by supervising physician Subjective Allergies: Coded Allergies: NO KNOWN DRUG ALLERGIES (Verified Allergy, Unknown, 09/11/16) Subjective leukocytosis resolved, afebrile no signs of respiratory distress on current settings HH remains at baseline Objective Last 24 Hour Vital Signs Date Time Temp Pulse Resp B/P Pulse Ox O2 Delivery O2 Flow Rate FiO2 09/17/16 08:00 30.0 09/17/16 07:15 56 14 30 09/17/16 04:52 52 14 30 09/17/16 04:07 98.1 67 18 91/61 100 Mechanical Ventilator 09/17/16 04:00 30.0 09/17/16 04:00 64 09/17/16 03:30 53 14 30 09/17/16 01:23 60 14 30 09/17/16 00:00 30.0 09/16/16 23:41 97.5 64 15 121/62 95 Mechanical Ventilator 09/16/16 23:30 61 14 30 09/16/16 21:02 54 14 30 09/16/16 20:00 57 09/16/16 20:00 30.0 09/16/16 19:30 58 14 30 09/16/16 19:00 98.1 59 20 111/62 100 Trach Collar 09/16/16 17:09 64 14 30 09/16/16 16:00 98.2 66 14 104/60 99 Trach Collar 09/16/16 16:00 30.0 09/16/16 16:00 70 09/16/16 15:04 71 14 30 09/16/16 13:06 72 14 30 09/16/16 12:00 98.2 61 14 139/61 96 Mechanical Ventilator 30 09/16/16 12:00 30.0 09/16/16 10:48 90 18 30 09/16/16 09:26 72 18 30 Intake and Output 09/16/16 09/17/16 19:00 07:00 Intake Total 500 ml 760 ml Output Total 450 ml 475 ml Balance 50 ml 285 ml Free Water 150 ml 300 ml IV Total 200 ml Tube Feeding 350 ml 200 ml Other 60 ml Output Urine Total 450 ml 450 ml Stool Total 25 ml Objective General Appearance: no acute distress HEENT: normocephalic, atraumatic, anicteric Respiratory/Chest: lungs clear, no respiratory distress, no accessory muscle use Cardiovascular: normal rate, regular rhythm, no JVD Abdomen: normal bowel sounds, soft, non tender, other - G tube Extremities: no edema Neurologic/Psychiatric: abnormal gait - bedridden, other - awake, not responds to verbal, only tactile stimuli. moves UE, LE rigid Musculoskeletal: atrophy Microbiology Date/Time Source Procedure Growth Status 09/15/16 14:10 Stool Clostridium difficile Toxin Assay - Final Complete Laboratory Tests 09/17/16 03:50: White Blood Count 9.1, Red Blood Count 3.41L, Hemoglobin 9.8L, Hematocrit 32.6L , Mean Corpuscular Volume 96, Mean Corpuscular Hemoglobin 28.8, Mean Corpuscular Hemoglobin Concent 30.1L, Red Cell Distribution Width 14.3, Platelet Count 316, Mean Platelet Volume 7.0, Neutrophils (%) (Auto) 57.5, Lymphocytes (%) (Auto) 25.4, Monocytes (%) (Auto) 9.6, Eosinophils (%) (Auto) 6.7H, Basophils (%) (Auto) 0.8, Sodium Level 138, Potassium Level 4.4, Chloride Level 99, Carbon Dioxide Level 30, Anion Gap 9, Blood Urea Nitrogen 15, Creatinine 0.5L, Estimat Glomerular Filtration Rate > 60, Glucose Level 97, Calcium Level 8.9 Current Medications Medications (Trade) Dose Ordered Sig/Wanda Route PRN Reason Start Time Stop Time Status Last Admin Dose Admin Acetaminophen (Tylenol) 650 mg Q4H PRN ORAL FEVER>100.5 09/11/16 08:00 10/11/16 07:59 Albuterol/ Ipratropium (DuoNeb 0.5-3(2.5)mg/3ml) 3 ml Q4HRT PRN HHN sob 09/16/16 10:45 09/21/16 10:44 Dextrose (Dextrose 50%) STAT PRN IV Hypoglycemia 09/11/16 07:30 10/11/16 07:29 Levothyroxine Sodium (Synthroid) 50 mcg DAILY GT 09/11/16 10:00 10/11/16 09:59 09/17/16 08:13 Lorazepam (Ativan 2mg/ml 1ml) 2 mg Q2H PRN IV For Anxiety 09/11/16 07:30 09/18/16 07:29 09/12/16 00:49 Meropenem/Sodium Chloride (Merrem/Sodium Chloride 100ml bag) 100 ml @ 200 mls/hr Q8HR IVPB 09/13/16 14:00 09/26/16 13:59 09/17/16 05:22 Morphine Sulfate (Morphine Sulfate) 4 mg Q4H PRN IVP Severe Pain (Pain Scale 7-10) 09/11/16 07:30 09/18/16 07:29 Ondansetron HCl (Zofran) 4 mg Q6H PRN IVP Nausea & Vomiting 09/11/16 07:30 10/11/16 07:29 09/11/16 12:36 Oxcarbazepine (Trileptal) 300 mg Q12HR GT 09/11/16 10:00 10/11/16 09:59 09/17/16 08:13 Pantoprazole 40 mg 40 mg EVERY 12 HOURS IVP 09/11/16 17:30 10/11/16 17:29 09/17/16 08:13 Polyethylene Glycol (Miralax) 17 gm DAILYPRN PRN ORAL Constipation 09/11/16 07:30 10/11/16 07:29 Sucralfate (Carafate) 1 gm FOUR TIMES A DAY GT 09/11/16 09:30 10/11/16 09:29 09/17/16 08:13 [facility] HospitalA[facility] Roper NP Sep 17, 2016 08:56
[2016-09-17] MEDS ORDERED: DuoNeb 0.5-3(2.5)mg/3ml neb HHN PRN (09:00)
[2016-09-17 09:20] LABS: ABG BASE EXCESS 3.3; ABG PCO2 30.1 mmHg (35.0-45.0)
[2016-09-17 09:21] LABS: ABG ALLEN TEST POSITIVE
[2016-09-17] MEDS ORDERED: LORazepam Inj 2mg/ml 1ml IV PRN (09:30)
[2016-09-17] MEDS ORDERED: Morphine Sulfate 4mg/ml Inj IVP PRN (11:30)
[2016-09-17 12:00] VITALS: BP 143/54
--- NOTE | 2016-09-17 12:17 | General Progress Note ---
Assessment/Plan Problem List: (1) Dementia ICD Codes: F03.90 - Dementia SNOMED: 44216113 (2) Debility ICD Codes: R53.81 - Debility SNOMED: 35753047 (3) HTN (hypertension) ICD Codes: I10 - HTN (hypertension) SNOMED: 15696798 (4) Anemia ICD Codes: D64.9 - Anemia, unspecified SNOMED: 576536816 (5) Esophagitis ICD Codes: K20.9 - Esophagitis SNOMED: 53686277 Assessment/Plan GTF stable H&H ppi carafate dc planning per primary team reflux measures Subjective ROS Limited/Unobtainable: No Allergies: Coded Allergies: NO KNOWN DRUG ALLERGIES (Verified Allergy, Unknown, 09/11/16) Objective Last 24 Hour Vital Signs Date Time Temp Pulse Resp B/P Pulse Ox O2 Delivery O2 Flow Rate FiO2 09/17/16 12:00 30.0 09/17/16 11:28 73 17 30 09/17/16 09:00 67 16 30 09/17/16 08:00 61 09/17/16 08:00 98.2 62 14 128/75 100 Mechanical Ventilator 30 09/17/16 08:00 30.0 09/17/16 07:15 56 14 30 09/17/16 04:52 52 14 30 09/17/16 04:07 98.1 67 18 91/61 100 Mechanical Ventilator 09/17/16 04:00 30.0 09/17/16 04:00 64 09/17/16 03:30 53 14 30 09/17/16 01:23 60 14 30 09/17/16 00:00 30.0 09/16/16 23:41 97.5 64 15 121/62 95 Mechanical Ventilator 09/16/16 23:30 61 14 30 09/16/16 21:02 54 14 30 09/16/16 20:00 57 09/16/16 20:00 30.0 09/16/16 19:30 58 14 30 09/16/16 19:00 98.1 59 20 111/62 100 Trach Collar 09/16/16 17:09 64 14 30 09/16/16 16:00 98.2 66 14 104/60 99 Trach Collar 09/16/16 16:00 30.0 09/16/16 16:00 70 1/7/17 15:04 71 14 30 09/16/16 13:06 72 14 30 Intake and Output 09/16/16 09/17/16 19:00 07:00 Intake Total 500 ml 760 ml Output Total 450 ml 475 ml Balance 50 ml 285 ml Free Water 150 ml 300 ml IV Total 200 ml Tube Feeding 350 ml 200 ml Other 60 ml Output Urine Total 450 ml 450 ml Stool Total 25 ml Laboratory Tests 09/17/16 03:50: White Blood Count 9.1, Red Blood Count 3.41L, Hemoglobin 9.8L, Hematocrit 32.6L , Mean Corpuscular Volume 96, Mean Corpuscular Hemoglobin 28.8, Mean Corpuscular Hemoglobin Concent 30.1L, Red Cell Distribution Width 14.3, Platelet Count 316, Mean Platelet Volume 7.0, Neutrophils (%) (Auto) 57.5, Lymphocytes (%) (Auto) 25.4, Monocytes (%) (Auto) 9.6, Eosinophils (%) (Auto) 6.7H, Basophils (%) (Auto) 0.8, Sodium Level 138, Potassium Level 4.4, Chloride Level 99, Carbon Dioxide Level 30, Anion Gap 9, Blood Urea Nitrogen 15, Creatinine 0.5L, Estimat Glomerular Filtration Rate > 60, Glucose Level 97, Calcium Level 8.9 09/17/16 09:00: Arterial Blood pH 7.540H, Arterial Blood Partial Pressure CO2 30.1L, Arterial Blood Partial Pressure O2 110.4H, Arterial Blood HCO3 25.3, Arterial Blood Oxygen Saturation 97.5, Arterial Blood Base Excess 3.3, Ger Test Positive Height (Feet): 6 Height (Inches): 1.00 Weight (Pounds): 185 General Appearance: no apparent distress EENT: normal ENT inspection Neck: supple Cardiovascular: normal rate Respiratory/Chest: decreased breath sounds Abdomen: normal bowel sounds, non tender, soft Extremities: non-tender FRAN GALAN Sep 17, 2016 12:17
[2016-09-17 16:00] VITALS: BP 104/46
[2016-09-17 20:00] VITALS: BP 93/58
--- NOTE | 2016-09-17 22:04 | Infectious Diseases Prog Note ---
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, revision 02/08, replacement 03/05 // Chronic encephalopathy / Dementia // NH resident // Functional quadriplegia / bedbound // Frequent hospital re-admissions // MDRO colonized ( MRSA, VRE, KPC, MDR-ACB ) // NKDA // Full Code PLAN: - cont IV Merrem d# 5 / , upon DC will change to Invanz to complete the course ( 09/13 SP Vanco, Tygacil and Cefepime d# 2 ) - monitor CBC, temperatures, - monitor cultures ( Bl ) - monitor BMP - monitor CXR - vent support, trach care, aspiration precautions Subjective Constitutional: Denies: anorexia, chills, drenching sweats, fatigue, fever, no symptoms, other Allergies: Coded Allergies: NO KNOWN DRUG ALLERGIES (Verified Allergy, Unknown, 09/11/16) Objective Vital Signs Last 24 Hour Vital Signs Date Time Temp Pulse Resp B/P Pulse Ox O2 Delivery O2 Flow Rate FiO2 09/17/16 21:20 69 14 30 09/17/16 20:00 98.8 60 14 93/58 98 Mechanical Ventilator 30 09/17/16 20:00 30.0 09/17/16 20:00 60 09/17/16 19:23 59 14 30 09/17/16 16:55 63 14 30 09/17/16 16:00 97.7 61 14 104/46 98 Mechanical Ventilator 30 09/17/16 16:00 30.0 09/17/16 16:00 97.7 61 14 104/46 98 Mechanical Ventilator 30 09/17/16 14:50 67 14 30 09/17/16 13:06 68 14 30 09/17/16 12:00 98.4 69 14 143/54 100 Mechanical Ventilator 30 09/17/16 12:00 68 09/17/16 12:00 30.0 09/17/16 11:28 73 17 30 09/17/16 09:00 67 16 30 09/17/16 08:00 61 09/17/16 08:00 98.2 62 14 128/75 100 Mechanical Ventilator 30 09/17/16 08:00 30.0 09/17/16 07:15 56 14 30 09/17/16 04:52 52 14 30 09/17/16 04:07 98.1 67 18 91/61 100 Mechanical Ventilator 09/17/16 04:00 30.0 09/17/16 04:00 64 09/17/16 03:30 53 14 30 09/17/16 01:23 60 14 30 09/17/16 00:00 30.0 09/16/16 23:41 97.5 64 15 121/62 95 Mechanical Ventilator 09/16/16 23:30 61 14 30 Height (Feet): 6 Height (Inches): 1.00 Weight (Pounds): 185 HEENT: anicteric Respiratory/Chest: no respiratory distress Cardiovascular: regularly irregular Abdomen: soft, non tender Microbiology Date/Time Source Procedure Growth Status 09/15/16 14:10 Stool Clostridium difficile Toxin Assay - Final Complete Laboratory Tests Test 09/17/16 03:50 09/17/16 09:00 White Blood Count 9.1 K/UL (4.8-10.8) Red Blood Count 3.41 M/UL (4.70-6.10) L Hemoglobin 9.8 G/DL (14.2-18.0) L Hematocrit 32.6 % (42.0-52.0) L Mean Corpuscular Volume 96 FL (80-99) Mean Corpuscular Hemoglobin 28.8 PG (27.0-31.0) Mean Corpuscular Hemoglobin Concent 30.1 G/DL (32.0-36.0) L Red Cell Distribution Width 14.3 % (11.6-14.8) Platelet Count 316 K/UL (150-450) Mean Platelet Volume 7.0 FL (6.5-10.1) Neutrophils (%) (Auto) 57.5 % (45.0-75.0) Lymphocytes (%) (Auto) 25.4 % (20.0-45.0) Monocytes (%) (Auto) 9.6 % (1.0-10.0) Eosinophils (%) (Auto) 6.7 % (0.0-3.0) H Basophils (%) (Auto) 0.8 % (0.0-2.0) Sodium Level 138 mEQ/L (135-145) Potassium Level 4.4 mEQ/L (3.4-4.9) Chloride Level 99 mEQ/L (98-107) Carbon Dioxide Level 30 mEQ/L (20-30) Anion Gap 9 (5-15) Blood Urea Nitrogen 15 mg/dL (7-23) Creatinine 0.5 mg/dL (0.7-1.2) L Estimat Glomerular Filtration Rate > 60 mL/min (>60) Glucose Level 97 mg/dL (74-106) Calcium Level 8.9 mg/dL (8.6-10.2) Arterial Blood pH 7.540 (7.350-7.450) Arterial Blood Partial Pressure CO2 30.1 mmHg (35.0-45.0) L Arterial Blood Partial Pressure O2 110.4 mmHg (75.0-100.0) H Arterial Blood HCO3 25.3 mmol/L (22.0-26.0) Arterial Blood Oxygen Saturation 97.5 % (92.0-98.0) Arterial Blood Base Excess 3.3 Ger Test Positive Current Medications Medications (Trade) Dose Ordered Sig/Wanda Route PRN Reason Start Time Stop Time Status Last Admin Dose Admin Acetaminophen (Tylenol) 650 mg Q4H PRN ORAL FEVER>100.5 09/11/16 08:00 10/11/16 07:59 Albuterol/ Ipratropium (DuoNeb 0.5-3(2.5)mg/3ml) 3 ml Q4H PRN HHN Shortness of Breath 09/17/16 09:00 09/22/16 08:59 Albuterol/ Ipratropium (DuoNeb 0.5-3(2.5)mg/3ml) 3 ml Q4HRT PRN HHN sob 09/16/16 10:45 1/12/17 10:44 Dextrose (Dextrose 50%) STAT PRN IV Hypoglycemia 09/11/16 07:30 10/11/16 07:29 Levothyroxine Sodium (Synthroid) 50 mcg DAILY GT 09/11/16 10:00 10/11/16 09:59 09/17/16 08:13 Lorazepam (Ativan 2mg/ml 1ml) 2 mg Q2H PRN IV For Anxiety 09/17/16 09:30 09/24/16 23:59 Meropenem/Sodium Chloride (Merrem/Sodium Chloride 100ml bag) 100 ml @ 200 mls/hr Q8HR IVPB 09/13/16 14:00 09/26/16 13:59 09/17/16 21:13 Morphine Sulfate (Morphine Sulfate) 4 mg Q4H PRN IVP Severe Pain (Pain Scale 7-10) 09/17/16 11:30 09/24/16 23:59 Ondansetron HCl (Zofran) 4 mg Q6H PRN IVP Nausea & Vomiting 09/11/16 07:30 10/11/16 07:29 09/11/16 12:36 Oxcarbazepine (Trileptal) 300 mg Q12HR GT 09/11/16 10:00 10/11/16 09:59 09/17/16 21:13 Pantoprazole 40 mg 40 mg EVERY 12 HOURS IVP 09/11/16 17:30 10/11/16 17:29 09/17/16 21:13 Polyethylene Glycol (Miralax) 17 gm DAILYPRN PRN ORAL Constipation 09/11/16 07:30 10/11/16 07:29 Sucralfate (Carafate) 1 gm FOUR TIMES A DAY GT 09/11/16 09:30 10/11/16 09:29 09/17/16 21:13 GLYNN BURGOS M.D. Sep 17, 2016 22:04
[2016-09-18] VITALS: BP 99/56
[2016-09-18 04:00] VITALS: BP 107/66
[2016-09-18 05:52] LABS: MEAN CORPUSCULAR HEMOGLOBIN 28.7 PG (27.0-31.0); MEAN CORPUSCULAR HGB CONC 29.9 G/DL (32.0-36.0); MEAN CORPUSCULAR VOLUME 96 FL (80-99); MEAN PLATELET VOLUME 6.8 FL (6.5-10.1); PLATELET COUNT 312 K/UL (150-450); RED BLOOD COUNT 3.25 M/UL (4.70-6.10); RED CELL DISTRIBUTION WIDTH 14.8 % (11.6-14.8); WHITE BLOOD COUNT 18.2 K/UL (4.8-10.8)
[2016-09-18 06:33] LABS: ANION GAP 10 (5-15); CALCIUM 8.8 mg/dL (8.6-10.2); CARBON DIOXIDE 28 mEQ/L (20-30); CHLORIDE 101 mEQ/L (98-107); CREATININE 0.5 mg/dL (0.7-1.2); GLOMERULAR FILTRATION RATE > 60 mL/min (>60); HEMOLYSIS 1; POTASSIUM 4.4 mEQ/L (3.4-4.9); SODIUM 139 mEQ/L (135-145)
[2016-09-18 08:00] VITALS: BP 129/76
[2016-09-18] MEDS: OXcarbazepine 150mg tab GT SCH ×2 (08:21→20:49)
[2016-09-18] MEDS: Pantoprazole Inj IVP SCH ×2 (08:22→20:49)
[2016-09-18] MEDS: Sucralfate 1gm tab GT SCH ×4 (08:22→20:48)
[2016-09-18 08:59] LABS: ANISOCYTOSIS 1+; BAND NEUTROPHILS % (MANUAL) 0 % (0-8); BASOPHILS % (MANUAL) 0 % (0-2); EOSINOPHILS % (MANUAL) 5 % (0-3); HYPOCHROMASIA 2+; LYMPHOCYTES % (MANUAL) 9 % (20-45); NEUTROPHILS % (MANUAL) 81 % (45-75); PLATELET ESTIMATE ADEQUATE; PLATELET MORPHOLOGY NORMAL; TOTAL CELLS COUNTED 100
[2016-09-18 12:00] VITALS: BP 135/72
--- NOTE | 2016-09-18 13:09 | GI Progress Note ---
Assessment/Plan Problems: (1) Dementia ICD Codes: F03.90 - Dementia SNOMED: 72373347 (2) Upper respiratory infection ICD Codes: J06.9 - Acute upper respiratory infection, unspecified SNOMED: 96124495 (3) Alzheimer's dementia ICD Codes: G30.9 - Alzheimer's disease, unspecified SNOMED: 15178062 (4) Gastrostomy tube dependent ICD Codes: Z93.1 - Gastrostomy tube dependent SNOMED: 192751870 (5) Upper GI bleed ICD Codes: K92.2 - Upper gastrointestinal hemorrhage SNOMED: 48194824 (6) Feeding by G-tube ICD Codes: Z93.1 - Gastrostomy status SNOMED: 975414431, 807734047 (7) Hypoalbuminemia ICD Codes: E88.09 - Other disorders of plasma-protein metabolism, not elsewhere classified SNOMED: 376032970 (8) Gastritis ICD Codes: K29.70 - Gastritis SNOMED: 4180466 (9) Esophagitis ICD Codes: K20.9 - Esophagitis SNOMED: 39970518 (10) Anemia ICD Codes: D64.9 - Anemia SNOMED: 436845593 (11) C. difficile colitis ICD Codes: A04.7 - C. difficile colitis SNOMED: 014134884 Status: stable, unchanged Status Narrative Discussed with Dr. Wilson. Assessment/Plan ok for DC per GI standpoint defer any endoscopic procedures at this time given bleed most likely from severe esophagitis stable H&H PPI BID carafate reglan reflux measures GTF fu labs Subjective Subjective limited Objective Last 24 Hour Vital Signs Date Time Temp Pulse Resp B/P Pulse Ox O2 Delivery O2 Flow Rate FiO2 09/18/16 13:05 72 17 30 09/18/16 12:00 30.0 09/18/16 10:59 69 18 30 09/18/16 09:12 73 14 30 09/18/16 08:00 64 09/18/16 08:00 30.0 09/18/16 08:00 98.2 75 14 129/76 97 Mechanical Ventilator 30 09/18/16 07:24 62 18 30 09/18/16 04:38 62 14 30 09/18/16 04:00 30.0 09/18/16 04:00 97.5 66 20 107/66 99 Mechanical Ventilator 09/18/16 03:41 71 09/18/16 03:15 66 14 30 09/18/16 01:06 72 14 30 09/18/16 00:00 97.9 68 18 99/56 99 Mechanical Ventilator 09/18/16 00:00 30.0 09/17/16 23:59 64 09/17/16 22:38 62 18 30 09/17/16 21:20 69 14 30 09/17/16 20:00 98.8 60 14 93/58 98 Mechanical Ventilator 30 09/17/16 20:00 30.0 09/17/16 20:00 60 09/17/16 19:23 59 14 30 09/17/16 16:55 63 14 30 09/17/16 16:00 97.7 61 14 104/46 98 Mechanical Ventilator 30 09/17/16 16:00 30.0 09/17/16 16:00 97.7 61 14 104/46 98 Mechanical Ventilator 30 09/17/16 14:50 67 14 30 Intake and Output 09/17/16 09/18/16 19:00 07:00 Intake Total 700 ml 1050 ml Output Total 525 ml 500 ml Balance 175 ml 550 ml Free Water 100 ml 50 ml IV Total 100 ml Tube Feeding 550 ml 600 ml Blood Product 300 ml Other 50 ml Output Urine Total 525 ml 500 ml Stool Total 0 ml Laboratory Tests Test 09/18/16 03:20 White Blood Count 18.2 K/UL (4.8-10.8) #H Red Blood Count 3.25 M/UL (4.70-6.10) L Hemoglobin 9.3 G/DL (14.2-18.0) L Hematocrit 31.2 % (42.0-52.0) L Mean Corpuscular Volume 96 FL (80-99) Mean Corpuscular Hemoglobin 28.7 PG (27.0-31.0) Mean Corpuscular Hemoglobin Concent 29.9 G/DL (32.0-36.0) L Red Cell Distribution Width 14.8 % (11.6-14.8) Platelet Count 312 K/UL (150-450) Mean Platelet Volume 6.8 FL (6.5-10.1) Neutrophils (%) (Auto) % (45.0-75.0) Lymphocytes (%) (Auto) % (20.0-45.0) Monocytes (%) (Auto) % (1.0-10.0) Eosinophils (%) (Auto) % (0.0-3.0) Basophils (%) (Auto) % (0.0-2.0) Differential Total Cells Counted 100 Neutrophils % (Manual) 81 % (45-75) H Lymphocytes % (Manual) 9 % (20-45) L Monocytes % (Manual) 5 % (1-10) Eosinophils % (Manual) 5 % (0-3) H Basophils % (Manual) 0 % (0-2) Band Neutrophils 0 % (0-8) Platelet Estimate Adequate Platelet Morphology Normal Hypochromasia 2+ Anisocytosis 1+ Sodium Level 139 mEQ/L (135-145) Potassium Level 4.4 mEQ/L (3.4-4.9) Chloride Level 101 mEQ/L (98-107) Carbon Dioxide Level 28 mEQ/L (20-30) Anion Gap 10 (5-15) Blood Urea Nitrogen 18 mg/dL (7-23) Creatinine 0.5 mg/dL (0.7-1.2) L Estimat Glomerular Filtration Rate > 60 mL/min (>60) Glucose Level 97 mg/dL (74-106) Calcium Level 8.8 mg/dL (8.6-10.2) Height (Feet): 6 Height (Inches): 1.00 Weight (Pounds): 185 General Appearance: no apparent distress, alert Cardiovascular: normal rate [facility]: [facility]: GT site - c/d/i Objective Endoscopy Procedure Note Indication for Procedure: gib Procedures Performed: EGD Operative Findings/Diagnosis: esophagitis FRAN WILSON - Oct 27, 2015 14:50 Arabella Quesada N.PKathie Sep 18, 2016 13:09
--- NOTE | 2016-09-18 13:54 | Infectious Diseases Prog Note ---
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 Add empiric flagyl d# 1 ( 09/13 SP Vanco, Tygacil and Cefepime d# 2 ) - f/u final cultures - monitor CBC, temperatures - monitor BMP - monitor CXR - vent support, trach care, aspiration precautions Subjective Allergies: Coded Allergies: NO KNOWN DRUG ALLERGIES (Verified Allergy, Unknown, 09/11/16) Subjective nonverbal afebrile, acute leukocytosis Objective Vital Signs Last 24 Hour Vital Signs Date Time Temp Pulse Resp B/P Pulse Ox O2 Delivery O2 Flow Rate FiO2 09/18/16 13:05 72 17 30 09/18/16 12:00 30.0 09/18/16 10:59 69 18 30 09/18/16 09:12 73 14 30 09/18/16 08:00 64 09/18/16 08:00 30.0 09/18/16 08:00 98.2 75 14 129/76 97 Mechanical Ventilator 30 09/18/16 07:24 62 18 30 09/18/16 04:38 62 14 30 09/18/16 04:00 30.0 09/18/16 04:00 97.5 66 20 107/66 99 Mechanical Ventilator 09/18/16 03:41 71 09/18/16 03:15 66 14 30 09/18/16 01:06 72 14 30 09/18/16 00:00 97.9 68 18 99/56 99 Mechanical Ventilator 09/18/16 00:00 30.0 09/17/16 23:59 64 09/17/16 22:38 62 18 30 09/17/16 21:20 69 14 30 09/17/16 20:00 98.8 60 14 93/58 98 Mechanical Ventilator 30 09/17/16 20:00 30.0 09/17/16 20:00 60 09/17/16 19:23 59 14 30 09/17/16 16:55 63 14 30 09/17/16 16:00 97.7 61 14 104/46 98 Mechanical Ventilator 30 09/17/16 16:00 30.0 09/17/16 16:00 97.7 61 14 104/46 98 Mechanical Ventilator 30 09/17/16 14:50 67 14 30 Height (Feet): 6 Height (Inches): 1.00 Weight (Pounds): 185 HEENT: status post trach Respiratory/Chest: decreased breath sounds Cardiovascular: normal rate, regular rhythm Abdomen: normal bowel sounds, soft, non tender, non distended, other - PEG Microbiology Date/Time Source Procedure Growth Status 09/15/16 14:10 Stool Clostridium difficile Toxin Assay - Final Complete Laboratory Tests Test 09/18/16 03:20 White Blood Count 18.2 K/UL (4.8-10.8) #H Red Blood Count 3.25 M/UL (4.70-6.10) L Hemoglobin 9.3 G/DL (14.2-18.0) L Hematocrit 31.2 % (42.0-52.0) L Mean Corpuscular Volume 96 FL (80-99) Mean Corpuscular Hemoglobin 28.7 PG (27.0-31.0) Mean Corpuscular Hemoglobin Concent 29.9 G/DL (32.0-36.0) L Red Cell Distribution Width 14.8 % (11.6-14.8) Platelet Count 312 K/UL (150-450) Mean Platelet Volume 6.8 FL (6.5-10.1) Neutrophils (%) (Auto) % (45.0-75.0) Lymphocytes (%) (Auto) % (20.0-45.0) Monocytes (%) (Auto) % (1.0-10.0) Eosinophils (%) (Auto) % (0.0-3.0) Basophils (%) (Auto) % (0.0-2.0) Differential Total Cells Counted 100 Neutrophils % (Manual) 81 % (45-75) H Lymphocytes % (Manual) 9 % (20-45) L Monocytes % (Manual) 5 % (1-10) Eosinophils % (Manual) 5 % (0-3) H Basophils % (Manual) 0 % (0-2) Band Neutrophils 0 % (0-8) Platelet Estimate Adequate Platelet Morphology Normal Hypochromasia 2+ Anisocytosis 1+ Sodium Level 139 mEQ/L (135-145) Potassium Level 4.4 mEQ/L (3.4-4.9) Chloride Level 101 mEQ/L (98-107) Carbon Dioxide Level 28 mEQ/L (20-30) Anion Gap 10 (5-15) Blood Urea Nitrogen 18 mg/dL (7-23) Creatinine 0.5 mg/dL (0.7-1.2) L Estimat Glomerular Filtration Rate > 60 mL/min (>60) Glucose Level 97 mg/dL (74-106) Calcium Level 8.8 mg/dL (8.6-10.2) Current Medications Medications (Trade) Dose Ordered Sig/Wanda Route PRN Reason Start Time Stop Time Status Last Admin Dose Admin Acetaminophen (Tylenol) 650 mg Q4H PRN ORAL FEVER>100.5 09/11/16 08:00 10/11/16 07:59 Albuterol/ Ipratropium (DuoNeb 0.5-3(2.5)mg/3ml) 3 ml Q4H PRN HHN Shortness of Breath 09/17/16 09:00 09/22/16 08:59 Albuterol/ Ipratropium (DuoNeb 0.5-3(2.5)mg/3ml) 3 ml Q4HRT PRN HHN sob 09/16/16 10:45 09/21/16 10:44 Dextrose (Dextrose 50%) STAT PRN IV Hypoglycemia 09/11/16 07:30 10/11/16 07:29 Levothyroxine Sodium (Synthroid) 50 mcg DAILY GT 09/11/16 10:00 10/11/16 09:59 09/18/16 08:22 Lorazepam (Ativan 2mg/ml 1ml) 2 mg Q2H PRN IV For Anxiety 09/17/16 09:30 09/24/16 23:59 Meropenem/Sodium Chloride (Merrem/Sodium Chloride 100ml bag) 100 ml @ 200 mls/hr Q8HR IVPB 09/13/16 14:00 09/26/16 13:59 09/18/16 13:48 Morphine Sulfate (Morphine Sulfate) 4 mg Q4H PRN IVP Severe Pain (Pain Scale 7-10) 09/17/16 11:30 09/24/16 23:59 Ondansetron HCl (Zofran) 4 mg Q6H PRN IVP Nausea & Vomiting 09/11/16 07:30 10/11/16 07:29 09/11/16 12:36 Oxcarbazepine (Trileptal) 300 mg Q12HR GT 09/11/16 10:00 10/11/16 09:59 09/18/16 08:21 Pantoprazole 40 mg 40 mg EVERY 12 HOURS IVP 09/11/16 17:30 10/11/16 17:29 09/18/16 08:22 Polyethylene Glycol (Miralax) 17 gm DAILYPRN PRN ORAL Constipation 09/11/16 07:30 10/11/16 07:29 Sucralfate (Carafate) 1 gm FOUR TIMES A DAY GT 09/11/16 09:30 10/11/16 09:29 09/18/16 13:48 LUNA GOODMAN Sep 18, 2016 13:54
[2016-09-18 16:12] VITALS: BP 92/57
[2016-09-18] MEDS: metroNIDAZOLE 500mg tab PEG SCH ×2 (16:25→21:39)
[2016-09-18 20:00] VITALS: BP 91/54
[2016-09-19] VITALS: BP 107/50
[2016-09-19 04:00] VITALS: BP_SYST 152; BP_SYST 99; BP_DIAS 100; BP_DIAS 59
[2016-09-19] MEDS: metroNIDAZOLE 500mg tab PEG SCH ×2 (06:07→14:00)
[2016-09-19 06:13] LABS: BASOPHILS % (AUTO) 0.9 % (0.0-2.0); EOSINOPHILS % (AUTO) 4.4 % (0.0-3.0); MEAN CORPUSCULAR HEMOGLOBIN 28.6 PG (27.0-31.0); MEAN CORPUSCULAR HGB CONC 30.3 G/DL (32.0-36.0); MEAN CORPUSCULAR VOLUME 94 FL (80-99); MEAN PLATELET VOLUME 7.5 FL (6.5-10.1); MONOCYTES % (AUTO) 7.7 % (1.0-10.0); PLATELET COUNT 279 K/UL (150-450); RED BLOOD COUNT 3.15 M/UL (4.70-6.10); WHITE BLOOD COUNT 8.7 K/UL (4.8-10.8)
[2016-09-19 06:39] LABS: ALANINE AMINOTRANSFERASE 12 U/L (3-41); ALBUMIN/GLOBULIN RATIO 0.8 (1.0-2.7); ANION GAP 11 (5-15); ASPARTATE AMINO TRANSFERASE 14 U/L (5-40); CALCIUM 8.5 mg/dL (8.6-10.2); CARBON DIOXIDE 26 mEQ/L (20-30); CHLORIDE 97 mEQ/L (98-107); CREATININE 0.5 mg/dL (0.7-1.2); GLOMERULAR FILTRATION RATE > 60 mL/min (>60); HEMOLYSIS 26; POTASSIUM 4.4 mEQ/L (3.4-4.9); SODIUM 134 mEQ/L (135-145); TOTAL PROTEIN 6.3 g/dL (6.6-8.7)
[2016-09-19 08:00] VITALS: BP 116/79
[2016-09-19] MEDS: Pantoprazole Inj IVP SCH (08:27)
[2016-09-19] MEDS: Sucralfate 1gm tab GT SCH ×2 (08:27→13:52)
[2016-09-19] MEDS: OXcarbazepine 150mg tab GT SCH (08:27)
--- NOTE | 2016-09-19 09:24 | GI Progress Note ---
Assessment/Plan Problems: (1) Dementia ICD Codes: F03.90 - Dementia SNOMED: 45491807 (2) Upper respiratory infection ICD Codes: J06.9 - Acute upper respiratory infection, unspecified SNOMED: 84189971 (3) Alzheimer's dementia ICD Codes: G30.9 - Alzheimer's disease, unspecified SNOMED: 56725302 (4) Gastrostomy tube dependent ICD Codes: Z93.1 - Gastrostomy tube dependent SNOMED: 350439291 (5) Upper GI bleed ICD Codes: K92.2 - Upper gastrointestinal hemorrhage SNOMED: 18044177 (6) Feeding by G-tube ICD Codes: Z93.1 - Gastrostomy status SNOMED: 070583937, 918802367 (7) Hypoalbuminemia ICD Codes: E88.09 - Other disorders of plasma-protein metabolism, not elsewhere classified SNOMED: 494614750 (8) Gastritis ICD Codes: K29.70 - Gastritis SNOMED: 9763768 (9) Esophagitis ICD Codes: K20.9 - Esophagitis SNOMED: 05661195 (10) Anemia ICD Codes: D64.9 - Anemia SNOMED: 465721309 (11) C. difficile colitis ICD Codes: A04.7 - C. difficile colitis SNOMED: 187344481 Status: stable Status Narrative Discussed with Dr. Wilson. Assessment/Plan ok for DC per GI standpoint defer any endoscopic procedures at this time given bleed most likely from severe esophagitis stable H&H PPI BID carafate reglan reflux measures GTF fu labs Subjective Subjective limited Objective Last 24 Hour Vital Signs Date Time Temp Pulse Resp B/P Pulse Ox O2 Delivery O2 Flow Rate FiO2 09/19/16 07:15 83 15 30 09/19/16 05:14 59 15 30 09/19/16 04:00 30.0 09/19/16 04:00 98.6 99 14 99/59 99 Mechanical Ventilator 30 09/19/16 03:52 62 09/19/16 03:30 56 14 30 09/19/16 01:30 60 16 30 09/19/16 00:22 66 09/19/16 00:00 30.0 09/19/16 00:00 98.0 65 17 107/50 94 Mechanical Ventilator 30 09/18/16 23:02 62 14 30 09/18/16 21:29 65 15 30 1/9/17 20:02 30.0 09/18/16 20:02 66 09/18/16 20:00 97.7 60 14 91/54 97 Mechanical Ventilator 30 09/18/16 19:03 77 18 30 09/18/16 17:25 70 14 30 09/18/16 16:30 64 09/18/16 16:12 98.2 68 14 92/57 96 Mechanical Ventilator 30 09/18/16 16:00 30.0 09/18/16 15:13 73 14 30 09/18/16 13:05 72 17 30 09/18/16 12:00 30.0 09/18/16 12:00 98.2 74 18 135/72 100 Mechanical Ventilator 30 09/18/16 10:59 69 18 30 Intake and Output 09/18/16 09/19/16 19:00 07:00 Intake Total 600 ml 1000 ml Output Total 650 ml 1630 ml Balance -50 ml -630 ml Free Water 100 ml 300 ml IV Total 100 ml 100 ml Tube Feeding 400 ml 450 ml Other 150 ml Output Urine Total 650 ml 1150 ml Stool Total 480 ml Laboratory Tests Test 09/19/16 04:30 White Blood Count 8.7 K/UL (4.8-10.8) # Red Blood Count 3.15 M/UL (4.70-6.10) L Hemoglobin 9.0 G/DL (14.2-18.0) L Hematocrit 29.7 % (42.0-52.0) L Mean Corpuscular Volume 94 FL (80-99) Mean Corpuscular Hemoglobin 28.6 PG (27.0-31.0) Mean Corpuscular Hemoglobin Concent 30.3 G/DL (32.0-36.0) L Red Cell Distribution Width 14.0 % (11.6-14.8) Platelet Count 279 K/UL (150-450) Mean Platelet Volume 7.5 FL (6.5-10.1) Neutrophils (%) (Auto) 63.0 % (45.0-75.0) Lymphocytes (%) (Auto) 24.0 % (20.0-45.0) Monocytes (%) (Auto) 7.7 % (1.0-10.0) Eosinophils (%) (Auto) 4.4 % (0.0-3.0) H Basophils (%) (Auto) 0.9 % (0.0-2.0) Sodium Level 134 mEQ/L (135-145) L Potassium Level 4.4 mEQ/L (3.4-4.9) Chloride Level 97 mEQ/L (98-107) L Carbon Dioxide Level 26 mEQ/L (20-30) Anion Gap 11 (5-15) Blood Urea Nitrogen 15 mg/dL (7-23) Creatinine 0.5 mg/dL (0.7-1.2) L Estimat Glomerular Filtration Rate > 60 mL/min (>60) Glucose Level 124 mg/dL (74-106) H Calcium Level 8.5 mg/dL (8.6-10.2) L Total Bilirubin < 0.2 mg/dL (0.0-1.2) Aspartate Amino Transf (AST/SGOT) 14 U/L (5-40) Alanine Aminotransferase (ALT/SGPT) 12 U/L (3-41) Alkaline Phosphatase 98 U/L (40-129) Total Protein 6.3 g/dL (6.6-8.7) L Albumin 2.8 g/dL (3.5-5.2) L Globulin 3.5 g/dL Albumin/Globulin Ratio 0.8 (1.0-2.7) L Height (Feet): 6 Height (Inches): 1.00 Weight (Pounds): 185 General Appearance: alert Cardiovascular: normal rate Respiratory/Chest: other - mech vent Abdominal Exam: GT site - c/d/i Objective Endoscopy Procedure Note Indication for Procedure: gib Procedures Performed: EGD Operative Findings/Diagnosis: esophagitis FRAN WILSON - Oct 27, 2015 14:50 Arabella Quesada NRoselyn Sep 19, 2016 09:24
--- NOTE | 2016-09-19 11:00 | Pulmonology Progress Note ---
Assessment/Plan Problems: (1) Respiratory failure, [id number] (2) Aspiration pneumonia (3) Tracheobronchitis, chronic (4) Alzheimer's dementia (5) Psychosis (6) Dementia (7) Debility Respiratory: monitor respiratory rate, adjust FIO2 Cardiac: continue to monitor HR/BP Renal: F/U I&O, keep IV fluid Infectious Disease: check cultures, continue antibiotics Gastrointestinal: continue feedings/current rate Endocrine: monitor blood sugar, continue sliding scale insulin Hematologic: monitor H/H, transfuse if hgb<8.5 Neurologic: PRN Ativan, PRN Morphine, keep patient comfortable Affect: PRN ativan Disposition: keep in ICU Notes Reviewed: 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 with: nurses, consultants, outsole caser Subjective ROS Limited/Unobtainable: Yes Allergies: Coded Allergies: NO KNOWN DRUG ALLERGIES (Verified Allergy, Unknown, 09/11/16) All Systems: reviewed and negative except above Objective Last 24 Hour Vital Signs Date Time Temp Pulse Resp B/P Pulse Ox O2 Delivery O2 Flow Rate FiO2 09/19/16 09:26 91 15 30 09/19/16 08:00 60 09/19/16 08:00 97.9 63 18 116/79 99 Mechanical Ventilator 30 09/19/16 08:00 30.0 09/19/16 07:15 83 15 30 09/19/16 05:14 59 15 30 09/19/16 04:00 30.0 09/19/16 04:00 98.6 99 14 99/59 99 Mechanical Ventilator 30 09/19/16 03:52 62 09/19/16 03:30 56 14 30 09/19/16 01:30 60 16 30 09/19/16 00:22 66 09/19/16 00:00 30.0 09/19/16 00:00 98.0 65 17 107/50 94 Mechanical Ventilator 30 09/18/16 23:02 62 14 30 09/18/16 21:29 65 15 30 09/18/16 20:02 30.0 09/18/16 20:02 66 09/18/16 20:00 97.7 60 14 91/54 97 Mechanical Ventilator 30 09/18/16 19:03 77 18 30 09/18/16 17:25 70 14 30 09/18/16 16:30 64 09/18/16 16:12 98.2 68 14 92/57 96 Mechanical Ventilator 30 09/18/16 16:00 30.0 09/18/16 15:13 73 14 30 09/18/16 13:05 72 17 30 09/18/16 12:00 30.0 09/18/16 12:00 98.2 74 18 135/72 100 Mechanical Ventilator 30 Intake and Output 09/18/16 09/19/16 19:00 07:00 Intake Total 600 ml 1000 ml Output Total 650 ml 1630 ml Balance -50 ml -630 ml Free Water 100 ml 300 ml IV Total 100 ml 100 ml Tube Feeding 400 ml 450 ml Other 150 ml Output Urine Total 650 ml 1150 ml Stool Total 480 ml Objective has diarrhia, rectal tube General Appearance: cachetic HEENT: normocephalic, atraumatic Respiratory/Chest: chest wall non-tender, lungs clear Cardiovascular: normal peripheral pulses, normal rate Abdomen: normal bowel sounds, soft, non tender Extremities: no cyanosis, no clubbing Skin: no lesions Neurologic/Psychiatric: no motor/sensory deficits Laboratory Tests 09/19/16 04:30: White Blood Count 8.7#, Red Blood Count 3.15L, Hemoglobin 9.0L, Hematocrit 29.7L , Mean Corpuscular Volume 94, Mean Corpuscular Hemoglobin 28.6, Mean Corpuscular Hemoglobin Concent 30.3L, Red Cell Distribution Width 14.0, Platelet Count 279, Mean Platelet Volume 7.5, Neutrophils (%) (Auto) 63.0, Lymphocytes (%) (Auto) 24.0, Monocytes (%) (Auto) 7.7, Eosinophils (%) (Auto) 4.4H, Basophils (%) (Auto) 0.9, Sodium Level 134L, Potassium Level 4.4, Chloride Level 97L, Carbon Dioxide Level 26, Anion Gap 11, Blood Urea Nitrogen 15, Creatinine 0.5L, Estimat Glomerular Filtration Rate > 60, Glucose Level 124H , Calcium Level 8.5L, Total Bilirubin < 0.2, Aspartate Amino Transf (AST/SGOT) 14, Alanine Aminotransferase (ALT/SGPT) 12, Alkaline Phosphatase 98, Total Protein 6.3L, Albumin 2.8L, Globulin 3.5, Albumin/Globulin Ratio 0.8L Current Medications Medications (Trade) Dose Ordered Sig/Wanda Route PRN Reason Start Time Stop Time Status Last Admin Dose Admin Acetaminophen (Tylenol) 650 mg Q4H PRN ORAL FEVER>100.5 09/11/16 08:00 10/11/16 07:59 Albuterol/ Ipratropium (DuoNeb 0.5-3(2.5)mg/3ml) 3 ml Q4H PRN HHN Shortness of Breath 09/17/16 09:00 09/22/16 08:59 Albuterol/ Ipratropium (DuoNeb 0.5-3(2.5)mg/3ml) 3 ml Q4HRT PRN HHN sob 09/16/16 10:45 09/21/16 10:44 Dextrose (Dextrose 50%) STAT PRN IV Hypoglycemia 09/11/16 07:30 10/11/16 07:29 Levothyroxine Sodium (Synthroid) 50 mcg DAILY GT 09/11/16 10:00 10/11/16 09:59 09/19/16 08:27 Lorazepam (Ativan 2mg/ml 1ml) 2 mg Q2H PRN IV For Anxiety 09/17/16 09:30 09/24/16 23:59 Meropenem/Sodium Chloride (Merrem/Sodium Chloride 100ml bag) 100 ml @ 200 mls/hr Q8HR IVPB 09/13/16 14:00 09/26/16 13:59 09/19/16 06:07 Metronidazole (Flagyl) 500 mg Q8HR PEG 09/18/16 15:30 09/25/16 15:29 09/19/16 06:07 Morphine Sulfate (Morphine Sulfate) 4 mg Q4H PRN IVP Severe Pain (Pain Scale 7-10) 09/17/16 11:30 09/24/16 23:59 Ondansetron HCl (Zofran) 4 mg Q6H PRN IVP Nausea & Vomiting 09/11/16 07:30 10/11/16 07:29 09/11/16 12:36 Oxcarbazepine (Trileptal) 300 mg Q12HR GT 09/11/16 10:00 10/11/16 09:59 09/19/16 08:27 Pantoprazole 40 mg 40 mg EVERY 12 HOURS IVP 09/11/16 17:30 10/11/16 17:29 09/19/16 08:27 Polyethylene Glycol (Miralax) 17 gm DAILYPRN PRN ORAL Constipation 09/11/16 07:30 10/11/16 07:29 Sucralfate (Carafate) 1 gm FOUR TIMES A DAY GT 09/11/16 09:30 10/11/16 09:29 09/19/16 08:27 MIKAYLA WILLOUGHBY Sep 19, 2016 11:00
[2016-09-19 12:00] VITALS: BP 133/73
--- NOTE | 2016-09-19 14:29 | Infectious Diseases Prog Note ---
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 Will continue Merrem d # 7 / while still inpt ( 09/13 SP Vanco, Tygacil and Cefepime d# 2 ) - f/u final cultures - monitor CBC, temperatures - monitor BMP - monitor CXR - vent support, trach care, aspiration precautions Subjective Allergies: Coded Allergies: NO KNOWN DRUG ALLERGIES (Verified Allergy, Unknown, 09/11/16) Subjective nonverbal afebrile, acute leukocytosis resolved Objective Vital Signs Last 24 Hour Vital Signs Date Time Temp Pulse Resp B/P Pulse Ox O2 Delivery O2 Flow Rate FiO2 09/19/16 12:44 88 16 30 09/19/16 12:00 64 09/19/16 12:00 30.0 09/19/16 10:49 90 15 30 09/19/16 09:26 91 15 30 09/19/16 08:00 60 09/19/16 08:00 97.9 63 18 116/79 99 Mechanical Ventilator 30 09/19/16 08:00 30.0 09/19/16 07:15 83 15 30 09/19/16 05:14 59 15 30 09/19/16 04:00 30.0 09/19/16 04:00 98.6 99 14 99/59 99 Mechanical Ventilator 30 09/19/16 03:52 62 09/19/16 03:30 56 14 30 09/19/16 01:30 60 16 30 09/19/16 00:22 66 09/19/16 00:00 30.0 09/19/16 00:00 98.0 65 17 107/50 94 Mechanical Ventilator 30 09/18/16 23:02 62 14 30 09/18/16 21:29 65 15 30 09/18/16 20:02 30.0 09/18/16 20:02 66 09/18/16 20:00 97.7 60 14 91/54 97 Mechanical Ventilator 30 09/18/16 19:03 77 18 30 09/18/16 17:25 70 14 30 09/18/16 16:30 64 09/18/16 16:12 98.2 68 14 92/57 96 Mechanical Ventilator 30 09/18/16 16:00 30.0 09/18/16 15:13 73 14 30 Height (Feet): 6 Height (Inches): 1.00 Weight (Pounds): 185 General Appearance: no acute distress HEENT: status post trach Respiratory/Chest: no respiratory distress Cardiovascular: normal rate, regular rhythm Abdomen: normal bowel sounds, soft, non tender, non distended, other - PEG Laboratory Tests Test 09/19/16 04:30 White Blood Count 8.7 K/UL (4.8-10.8) # Red Blood Count 3.15 M/UL (4.70-6.10) L Hemoglobin 9.0 G/DL (14.2-18.0) L Hematocrit 29.7 % (42.0-52.0) L Mean Corpuscular Volume 94 FL (80-99) Mean Corpuscular Hemoglobin 28.6 PG (27.0-31.0) Mean Corpuscular Hemoglobin Concent 30.3 G/DL (32.0-36.0) L Red Cell Distribution Width 14.0 % (11.6-14.8) Platelet Count 279 K/UL (150-450) Mean Platelet Volume 7.5 FL (6.5-10.1) Neutrophils (%) (Auto) 63.0 % (45.0-75.0) Lymphocytes (%) (Auto) 24.0 % (20.0-45.0) Monocytes (%) (Auto) 7.7 % (1.0-10.0) Eosinophils (%) (Auto) 4.4 % (0.0-3.0) H Basophils (%) (Auto) 0.9 % (0.0-2.0) Sodium Level 134 mEQ/L (135-145) L Potassium Level 4.4 mEQ/L (3.4-4.9) Chloride Level 97 mEQ/L (98-107) L Carbon Dioxide Level 26 mEQ/L (20-30) Anion Gap 11 (5-15) Blood Urea Nitrogen 15 mg/dL (7-23) Creatinine 0.5 mg/dL (0.7-1.2) L Estimat Glomerular Filtration Rate > 60 mL/min (>60) Glucose Level 124 mg/dL (74-106) H Calcium Level 8.5 mg/dL (8.6-10.2) L Total Bilirubin < 0.2 mg/dL (0.0-1.2) Aspartate Amino Transf (AST/SGOT) 14 U/L (5-40) Alanine Aminotransferase (ALT/SGPT) 12 U/L (3-41) Alkaline Phosphatase 98 U/L (40-129) Total Protein 6.3 g/dL (6.6-8.7) L Albumin 2.8 g/dL (3.5-5.2) L Globulin 3.5 g/dL Albumin/Globulin Ratio 0.8 (1.0-2.7) L Current Medications Medications (Trade) Dose Ordered Sig/Wanda Route PRN Reason Start Time Stop Time Status Last Admin Dose Admin Acetaminophen (Tylenol) 650 mg Q4H PRN ORAL FEVER>100.5 09/11/16 08:00 10/11/16 07:59 Albuterol/ Ipratropium (DuoNeb 0.5-3(2.5)mg/3ml) 3 ml Q4H PRN HHN Shortness of Breath 09/17/16 09:00 09/22/16 08:59 Albuterol/ Ipratropium (DuoNeb 0.5-3(2.5)mg/3ml) 3 ml Q4HRT PRN HHN sob 09/16/16 10:45 09/21/16 10:44 Dextrose (Dextrose 50%) STAT PRN IV Hypoglycemia 09/11/16 07:30 10/11/16 07:29 Levothyroxine Sodium (Synthroid) 50 mcg DAILY GT 09/11/16 10:00 10/11/16 09:59 09/19/16 08:27 Lorazepam (Ativan 2mg/ml 1ml) 2 mg Q2H PRN IV For Anxiety 09/17/16 09:30 09/24/16 23:59 Meropenem/Sodium Chloride (Merrem/Sodium Chloride 100ml bag) 100 ml @ 200 mls/hr Q8HR IVPB 09/13/16 14:00 09/26/16 13:59 09/19/16 13:53 Metronidazole (Flagyl) 500 mg Q8HR PEG 09/18/16 15:30 09/25/16 15:29 09/19/16 06:07 Morphine Sulfate (Morphine Sulfate) 4 mg Q4H PRN IVP Severe Pain (Pain Scale 7-10) 09/17/16 11:30 09/24/16 23:59 Ondansetron HCl (Zofran) 4 mg Q6H PRN IVP Nausea & Vomiting 09/11/16 07:30 10/11/16 07:29 09/11/16 12:36 Oxcarbazepine (Trileptal) 300 mg Q12HR GT 09/11/16 10:00 10/11/16 09:59 09/19/16 08:27 Pantoprazole 40 mg 40 mg EVERY 12 HOURS IVP 09/11/16 17:30 10/11/16 17:29 09/19/16 08:27 Polyethylene Glycol (Miralax) 17 gm DAILYPRN PRN ORAL Constipation 09/11/16 07:30 10/11/16 07:29 Sucralfate (Carafate) 1 gm FOUR TIMES A DAY GT 09/11/16 09:30 10/11/16 09:29 09/19/16 13:52 LUNA GOODMAN Sep 19, 2016 14:29
[2016-09-19] MEDS ORDERED: NS 275ml ONE (15:20)
--- NOTE | 2016-09-19 22:36 | Diagnostic Imaging Report ---
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 RIGHT LEG: Venous imaging reveals a patent deep venous system. There is no evidence of thrombus within the femoral, popliteal or tibial segments. The greater saphenous vein is also within normal limits. Doppler indicates normal spontaneous flow within these segments. However, the proximal superficial femoral vein was not visualized due to contracture. LEFT LEG: Venous imaging reveals a patent deep venous system. There is no evidence of thrombus within the femoral, popliteal or tibial segments. Doppler indicates normal spontaneous flow within these segments. However, the proximal superficial femoral vein was not well visualized due to contracture. The greater saphenous vein was not visualized due to continuous patient movement.
--- NOTE | 2016-09-20 10:28 | Discharge Summary ---
Discharge Summary Hospital Course Date of Admission Sep 11, 2016 at 02:01 Date of Discharge Sep 19, 2016 at 15:21 Admitting Diagnosis Sepsis HPI Maldonado Huffman is a 66 year old male who was admitted on Sep 11, 2016 at 02:01 for Sepsis Hospital Course dc summary dictated # [id number] Discharge Medications Continued Medications: Acetaminophen (Acetaminophen) 650 Mg/20.3 Ml Soln 640 MG GT Q4HR PRN for Prn Headache/Temp > 101, ML 0 Refills Albuterol Sulfate* (Albuterol Sulfate Hhn*) 2.5 Mg/3 Ml Vial.neb 3 ML INH Q6HR PRN for Shortness of Breath, EA Amlodipine Besylate (Norvasc) 2.5 Mg Tab 2.5 MG ORAL DAILY, #30 TAB Ertapenem Sodium* (INVanz*) 1 Gm Vial.port 1 GM IVPB Q24H, #1 VIAL Famotidine (Famotidine) 20 Mg Tablet 20 MG GT DAILY, #60 TAB 0 Refills Ferrous Sulfate (Ferrous Sulfate) 300 Mg/5 Ml Liqd 300 MG NG BID, #60 ML Folic Acid* (Folic Acid*) 1 Mg Tablet 1 MG GT DAILY, TAB Ipratropium/Albuterol Sulfate (DuoNeb 0.5-3(2.5)mg/3ml) 3 Ml Ampul.neb 3 ML HHN Q4H PRN for Shortness of Breath, #20 EA Levothyroxine Sodium* (Levothyroxine Sodium*) 50 Mcg Tablet 50 MCG GT DAILY, TAB Take in the morning on an empty stomach, at least 30 minutes before food. Magnesium Hydroxide (Milk of Magnesia) 30 Ml Susp 30 ML GT DAILY Magnesium Hydroxide* (Milk Of Magnesia*) 400 Mg/5 Ml Oral.susp 30 ML ORAL QHS, ML Metoclopramide Hcl* (Reglan*) 5 Mg Tablet 5 MG GT EVERY 6 HOURS, TAB Metoclopramide Hcl* (Reglan*) 5 Mg Tablet 10 MG GT EVERY 6 HOURS, TAB Metronidazole* (Flagyl*) 500 Mg Tablet 500 MG JT Q8HR, #15 TAB Multivit-Min/Iron Fum/Folic AC (Asrvq-Qvyrdiz-Dikmkdyw Tablet) 1 Each Tablet 1 EACH GT, TAB Oxcarbazepine (Oxcarbazepine) 150 Mg Tab 300 MG GT TWICE A DAY, #60 TAB 0 Refills Oxcarbazepine* (Trileptal*) 600 Mg Tablet 300 MG GT BID, TAB Polyethylene Glycol 3350* (Miralax*) 17 Gm Powd.pack 17 GM ORAL BEDTIME, #20 PACK Saccharomyces Boulardii (Florastor*) 250 Mg Capsule 250 MG GT TWICE A DAY, CAP Discharge Condition Upon Discharge: improving Discharge Disposition Patient was discharged to Discharge Diagnoses: Jose (Jacindastefania)Amina NP Sep 20, 2016 10:28
--- NOTE | 2016-09-21 03:18 | Discharge Summary 2 SIG ---
DATE OF ADMISSION: 09/11/2016 DATE OF DISCHARGE: 09/19/2016 REASON FOR HOSPITALIZATION: 66 years old male, custodial resident, with history of chronic ventilator dependency, dysphagia, G-tube presented with fever and decreased level of consciousness. He was sent from the custodial secondary to fever. There was no report of respiratory distress. He was unable to provide any history. The patient was diagnosed with sepsis and admitted to [facility] for further management. ADMITTING DIAGNOSES: 1. Aspiration pneumonia. 2. Respiratory failure, acute on chronic. 3. Tracheal bronchitis, chronic. 4. Alzheimer dementia. 5. Psychosis. 6. Debility. 7. Sepsis. HOSPITAL COURSE: The patient was admitted to [facility]. Septic workup initiated. In the emergency room, the patient was started on empiric antibiotics. Antibiotic regimen adjusted according to sensitivity. Influenza screen and blood culture were both negative. Stool for C. difficile negative. Urine culture positive for Klebsiella pneumoniae ESBL and Proteus ESBL. Infectious Disease doctor followed. ID recommended Merrem while still inpatient, and for discharge IV Invanz for seven days and Flagyl for four days. Ventilator and tracheostomy care provided. Pulmonary toilet provided. ABG was stable on current ventilator settings, settings kept as is and titrated as needed. Venous Doppler of bilateral lower extremities was negative. Hemoglobin and hematocrit were monitored, on the baseline. No trend down. GI followed the patient. According to the GI, endoscopic procedure at this time deferred, giving known severe esophagitis and stable hemoglobin /hematocrit. The patient was proton pump inhibitor twice a day as well as Carafate, per GI also recommended continue Reglan and reflux measures. Strict aspiration precautions were maintained. The patient was able to tolerate G-tube feeding. GI cleared for discharge. The patient was not discharged on 09/18/2016 since he developed leukocytosis, resolved in 1 day no fever. Stool for C. difficile was negative. The patient was stable for discharge on 09/19/2016. ID cleared. Discharged to assisted facility. DISCHARGE DIAGNOSIS: acute on chronic respiratory failure aspiration pneumonia VDRF/trach UTI with hx of recurrent UTUI dysphagia, G tube Hx of GI bleeding, esophagitis hypothyroidism advanced Alzheimer dementia functional quadriplegia DISCHARGE MEDICATIONS: See medication reconciliation list. IV Invanz for 7 days. Flagyl for four days. Otherwise, continue home medications. DISCHARGE INSTRUCTIONS: The patient discharged to subacute assisted facility. FOLLOWUP: Follow up with medical doctor and hris coordinator at the facility. Huma Keating M.D. I have been assigned to dictate discharge summary on this account and I was not involved in the patient's management. Amina Millersandoval N.PKathie DR: Carola JOB#: [id number] CC: KENDRICK
--- NOTE | 2016-09-26 12:00 | Diagnostic Imaging Report ---
Indication: Dyspnea Comparison: 09/11/16 A single view chest radiograph was obtained. Findings: Right perihilar density again noted and may be atelectasis versus scarring. Pneumonia not entirely excluded. Please correlate clinically. Tracheostomy noted. Heart size is normal. Impression: Right perihilar density may be atelectasis or scarring. Pneumonia not entirely excluded.
--- NOTE | 2016-09-26 14:57 | Diagnostic Imaging Report ---
Indications: DYSPNEA Technique: Portable AP chest Findings: Comparison: 09/18/16 right lower, left midlung linear densities have improved. Cardiac mediastinal silhouette stable. No new abnormality identified. IMPRESSION: Improvement in bilateral subsegmental atelectasis
== END 2016-09-19 15:21 | DRG 870 ==
LOC: EDBD 00:19 → EDUNIT# 00:19 → EMR 00:37 → 2W 02:01 → EDBEDREQ 08:25
DX: A41.9 Sepsis, unspecified organism (principal); J96.20 Acute and chronic respiratory failure, unspecified whether with hypoxia or hypercapnia; J69.0 Pneumonitis due to inhalation of food and vomit; Z99.11 Dependence on respirator [ventilator] status; Z93.0 Tracheostomy status; J42 Unspecified chronic bronchitis; R53.2 Functional quadriplegia; I69.359 Hemiplegia and hemiparesis following cerebral infarction affecting unspecified side; N39.0 Urinary tract infection, site not specified; G30.9 Alzheimer's disease, unspecified; F02.80 Dementia in other diseases classified elsewhere, unspecified severity, without behavioral disturbance, psychotic disturbance, mood disturbance, and anxiety; Z93.1 Gastrostomy status; Z74.01 Bed confinement status; B96.1 Klebsiella pneumoniae [K. pneumoniae] as the cause of diseases classified elsewhere; B96.4 Proteus (mirabilis) (morganii) as the cause of diseases classified elsewhere; Z16.12 Extended spectrum beta lactamase (ESBL) resistance; D72.829 Elevated white blood cell count, unspecified; E88.09 Other disorders of plasma-protein metabolism, not elsewhere classified; K21.0 Gastro-esophageal reflux disease with esophagitis; F29 Unspecified psychosis not due to a substance or known physiological condition; R53.81 Other malaise; K29.70 Gastritis, unspecified, without bleeding; E03.9 Hypothyroidism, unspecified; R13.10 Dysphagia, unspecified; D64.9 Anemia, unspecified
CPT/HCPCS: 36415; 36600; 71010; 80048; 80053; 80069; 80202; 81003; 82270; 82550; 82553; 82803; 83605; 83735; 84100; 84484; 85007; 85025; 85610; 85730; 86710; 87040; 87081; 87086; 87181; 87493; 93005; 93970; 94002; 94003; 94664; J2405

== ENCOUNTER 2017-04-01 09:02 | Inpatient (IN) | payer MEDICARE ==
[~2017-04-01] VITALS: Ht 177.8 cm; Wt 77.1 kg
--- NOTE | 2017-04-01 09:09 | Emergency Room Report ---
History of Present Illness General Chief Complaint: Gastrointestinal Bleed Source: Patient, Medical Record Present Illness HPI 66YOM BIBEMS for "2 episodes coffee ground emesis this morning." No other info from EMS, SNF. No family members bedside. All info from EMR: chronic vent dependency. September 2016 admit for sepsis, aspiration PNA. Chronic trach broncitis, Alzheimers. Urine Cx positive for Klebsiella pneumoniae ESBL and Proteus ESBL. Infectious Disease doctor followed. ID recommended Merrem while still inpatient, and for discharge IV Invanz for seven days and Flagyl for four days. - GI followed the patient. According to the GI, endoscopic procedure at this time deferred, giving known severe esophagitis and stable hemoglobin / hematocrit. The patient was proton pump inhibitor twice a day as well as Carafate, per GI also recommended continue Reglan and reflux measures. Strict aspiration precautions were maintained. Allergies: Coded Allergies: NO KNOWN DRUG ALLERGIES (Verified Allergy, Unknown, 09/11/16) Patient History Past Medical History: other - see HPI Past Surgical History: other - Trach, PEG Pertinent Family History: unable to obtain Social History: Denies: alcohol use, drug use, smoking Immunizations: UTD Reviewed Nursing Documentation: PMH: Agreed, PSxH: Agreed Nursing Documentation-PMH Hx Cardiac Problems: Yes Hx Hypertension: Yes Hx Asthma: Yes Hx Diabetes: Yes Hx Cancer: No History Of Psychiatric Problem: Yes - Parkinson's Hx Neurological Problems: Yes Hx Cerebrovascular Accident: Yes Hx Transient Ischemic Attacks: Yes Hx Dementia: Yes Hx Parkinson's Disease: Yes Hx Encephalitis: Yes Hx Seizures: Yes Hx Epilepsy: Yes Hx Paralysis: Yes - HEMIPLEGIA Hx Concentration Difficulty: Yes Hx Speech Problem: Yes Hx Aphasia: Yes Hx Weakness: Yes Hx Fatigue: Yes Hx Neurologic Surgery: No Hx Brain Shunt: No Review of Systems All Other Systems: limited - aphasic Physical Exam Vital Signs Date Time Temp Pulse Resp B/P Pulse Ox O2 Delivery O2 Flow Rate FiO2 04/01/17 08:58 Mechanical Ventilator Sp02 EP Interpretation: reviewed, normal General Appearance: normal inspection, well appearing, no apparent distress, alert, non-toxic, Chronically Ill Head: normocephalic, atraumatic Eyes: bilateral eye EOMI, bilateral eye PERRL ENT: normal ENT inspection, hearing grossly normal, normal voice Neck: normal inspection, full range of motion, supple, no bony tend, other, tracheotomy - Trach suctioned: thick, yellow sputum. 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 I attest that this information is true, accurate and complete to the best of my knowledge. I understand that any falsification, omission, or concealment of material fact may subject me to administrative, civil, or criminal liability. This patient warrants hospital admission for extreme of age and has a condition that cannot be treated as outpatient. Diagnostic Impression: Primary Impression: Gastrointestinal hemorrhage Qualified Codes: K92.2 - Gastrointestinal hemorrhage, unspecified Additional Impressions: Esophagitis Sepsis Qualified Codes: A41.9 - Sepsis, unspecified organism ER Course "coffee ground emesis." - VSS. Afebrile. - Known chronic esophagitis. - DDx includes esophagitis, gastritis, aspiration - Connected to vent - H&H stable - Will continue PPI IV as recommended by GI consult in September Sepsis - Leuks very elevated - Vitals otherwise stable. No obvious source of infection. ?aspiration pneumonitis - UA equivocal. CXR no obvious lobar PNA - Will give empiric Abx - Blood, Urine Cx pending endorsed to Dr Keating at 11am for [facility] admit EKG Diagnostic Results Rate: normal Rhythm: NSR ST Segments: no acute changes ASA given to the pt in ED: No Rhythm Strip Diag. Results EP Interpretation: yes Rate: 95 Rhythm: NSR, no PVC's, no ectopy Chest X-Ray Diagnostic Results Chest X-Ray Diagnostic Results : Chest X-Ray Ordered: Yes # of Views/Limited/Complete: 1 View Indication: Shortness of Breath EP Interpretation: Yes Interpretation: no consolidation, no effusion, no pneumothorax, no acute cardiopulmonary disease Impression: No acute disease Interpreting ER Provider: Electronically signed by Dr Siegel Last Vital Signs Date Time Temp Pulse Resp B/P Pulse Ox O2 Delivery O2 Flow Rate FiO2 04/01/17 08:58 Mechanical Ventilator Status: improved Disposition: ADMITTED INPATIENT Condition: Serious MARCO SIEGEL M.D. Apr 01, 2017 09:09
[2017-04-01 09:10] VITALS: BP 120/67
[2017-04-01] MEDS ORDERED: COLACE100 MG GT (09:18)
[2017-04-01] MEDS ORDERED: Pantoprazole Inj IVP ONE (09:30)
[2017-04-01] MEDS ORDERED: Mylanta II UD 30ml ORAL PRN (10:00)
[2017-04-01] MEDS ORDERED: Morphine Sulfate 2mg/ml Inj IVP PRN (10:00)
[2017-04-01] MEDS ORDERED: Nitroglycerin Subl 0.4mg tab (Bottle Of 25) SL PRN (10:00)
[2017-04-01 10:10] LABS: MEAN CORPUSCULAR HEMOGLOBIN 25.3 PG (27.0-31.0); MEAN CORPUSCULAR HGB CONC 30.5 G/DL (32.0-36.0); MEAN CORPUSCULAR VOLUME 83 FL (80-99); MEAN PLATELET VOLUME 7.1 FL (6.5-10.1); PLATELET COUNT 484 K/UL (150-450); RED BLOOD COUNT 4.62 M/UL (4.70-6.10); RED CELL DISTRIBUTION WIDTH 15.1 % (11.6-14.8)
[2017-04-01 10:20] LABS: INR 0.9 (0.9-1.1); PROTHROMBIN TIME 9.9 SEC (9.30-11.50)
[2017-04-01 10:21] LABS: WHITE BLOOD COUNT 27.4 K/UL (4.8-10.8)
[2017-04-01 10:25] LABS: ALANINE AMINOTRANSFERASE 12 U/L (3-41); ALBUMIN/GLOBULIN RATIO 0.9 (1.0-2.7); ANION GAP 13 (5-15); ASPARTATE AMINO TRANSFERASE 18 U/L (5-40); CALCIUM 9.6 mg/dL (8.6-10.2); CARBON DIOXIDE 30 mEQ/L (20-30); CHLORIDE 95 mEQ/L (98-107); CREATININE 0.7 mg/dL (0.7-1.2); GLOMERULAR FILTRATION RATE > 60 mL/min (>60); HEMOLYSIS 35; LIPASE 49 U/L (< 60); POTASSIUM 3.5 mEQ/L (3.4-4.9); SODIUM 138 mEQ/L (135-145); TOTAL PROTEIN 7.6 g/dL (6.6-8.7)
[2017-04-01 10:55] LABS: APPEARANCE,URINE SLIGHTLY CLOUDY; KETONES,URINE NEGATIVE (NEGATIVE); LEUKOCYTE ESTERASE ,URINE 1+ (NEGATIVE); NITRITE,URINE NEGATIVE (NEGATIVE); PH,URINE 8 (4.5-8.0); PROTEIN,URINE 1+ (NEGATIVE); UROBILINOGEN,URINE NORMAL MG/DL (0.0-1.0)
[2017-04-01 11:05] LABS: BACTERIA,URINE FEW /HPF; SQUAMOUS EPITHELIAL CELL,UR OCCASIONAL /LPF (NONE/OCC)
[2017-04-01 11:06] LABS: AMORPHOUS SEDIMENT,UR MODERATE /LPF
[2017-04-01 11:08] LABS: ANISOCYTOSIS 1+; BAND NEUTROPHILS % (MANUAL) 0 % (0-8); BASOPHILS % (MANUAL) 0 % (0-2); EOSINOPHILS % (MANUAL) 1 % (0-3); HYPOCHROMASIA 1+; LYMPHOCYTES % (MANUAL) 14 % (20-45); NEUTROPHILS % (MANUAL) 78 % (45-75); PLATELET ESTIMATE ADEQUATE; PLATELET MORPHOLOGY NORMAL; TOTAL CELLS COUNTED 100
[2017-04-01 11:09] VITALS: BP 107/70
[2017-04-01] MEDS ORDERED: Vancomycin 1.5gm/D5W 250ml 250 ML IVPB ONE (11:15)
[2017-04-01] MEDS ORDERED: Piperacillin/Tazobactam 3.375 GM in NS 110 ML IVPB ONE (11:15)
[2017-04-01] MEDS ORDERED: Zosyn 3.375gm inj ONE (11:29)
[2017-04-01] MEDS: D5 1/2NS 1,000 ML IV SCH (14:06)
[2017-04-01] MEDS: Sucralfate 1gm tab GT SCH ×3 (14:09→20:58)
[2017-04-01] MEDS: DuoNeb 0.5-3(2.5)mg/3ml neb HHN SCH ×2 (15:12→23:13)
[2017-04-01 16:00] VITALS: BP 133/76
--- NOTE | 2017-04-01 16:16 | History and Physical ---
History of Present Illness General Date patient seen: Apr 01, 2017 Reason for Hospitalization: Gastrointestinal Bleed Present Illness HPI 66-year-old male with hx of chronic trach /vent/ PEG, halfway resident, presented with chief complaint of upper GI bleeding. Unable to get any other history from the patient. No complaint of cough. Patient was diagnosed to have sepsis b/o of increased WBC and admitted to [facility]. Patient looks cachectic, comfortable and in no distress connected to vent. Allergies: Coded Allergies: NO KNOWN DRUG ALLERGIES (Verified Allergy, Unknown, 09/11/16) Medication History Scheduled Amlodipine Besylate (Norvasc), 2.5 MG ORAL DAILY Benztropine Mesylate* (Benztropine Mesylate*), 1 MG GT BID, (Reported) Docusate Sodium* (Colace*), 100 MG GT TWICE A DAY, (Reported) Famotidine (Famotidine), 20 MG GT DAILY, (Reported) Ferrous Sulfate (Ferrous Sulfate), 300 MG NG BID Folic Acid* (Folic Acid*), 1 MG GT DAILY, (Reported) Levothyroxine Sodium* (Levothyroxine Sodium*), 50 MCG GT DAILY, (Reported) Metoclopramide Hcl* (Reglan*), 5 MG GT EVERY 6 HOURS, (Reported) Oxcarbazepine (Oxcarbazepine), 300 MG GT TWICE A DAY, (Reported) Saccharomyces Boulardii (Florastor*), 250 MG GT TWICE A DAY, (Reported) Sucralfate* (Carafate*), 1 GM GT FOUR TIMES A DAY, (Reported) Scheduled PRN Acetaminophen (Acetaminophen), 640 MG GT Q4HR PRN for Prn Headache/Temp > 101, ( Reported) Albuterol Sulfate* (Albuterol Sulfate Hhn*), 3 ML INH Q6HR PRN for Shortness of Breath, (Reported) Bisacodyl (Dulcolax), 10 MG RC DAILY PRN for Constipation, (Reported) Ipratropium/Albuterol Sulfate (DuoNeb 0.5-3(2.5)mg/3ml), 3 ML HHN Q4H PRN for Shortness of Breath Magnesium Hydroxide* (Milk Of Magnesia*), 30 ML ORAL QHS PRN for Constipation, ( Reported) Discontinued Medications Ertapenem Sodium* (INVanz*), 1 GM IVPB Q24H, (Reported) Discontinued Reason: Medication dose changed Meropenem (Meropenem), 1 GM IVPB Q12HR, (Reported) Discontinued Reason: Therapy completed Metronidazole* (Flagyl*), 500 MG JT Q8HR Discontinued Reason: Therapy completed Multivit-Min/Iron Fum/Folic AC (Hgauw-Vaepzrw-Dxhdvcpv Tablet), 1 EACH GT, ( Reported) Discontinued Reason: Therapy completed Polyethylene Glycol 3350* (Miralax*), 17 GM ORAL BEDTIME Discontinued Reason: Therapy completed Vancomycin Hcl (Vancomycin), 1 GM IV, (Reported) Discontinued Reason: Therapy completed Patient History Healthcare decision maker Resuscitation status Full Code Advanced Directive on File No Past Medical/Surgical History Past Medical/Surgical History: (1) Psychosis (2) Debility (3) Protein-calorie malnutrition, severe (4) Feeding by G-tube (5) Alzheimer's dementia Review of Systems All Other Systems: negative except mentioned in HPI Physical Exam General Appearance: cachetic Lines, tubes and drains: peripheral, trach HEENT: normocephalic, atraumatic Neck: non-tender, normal alignment Respiratory/Chest: chest wall non-tender, lungs clear Cardiovascular/Chest: normal peripheral pulses, normal rate Abdomen: normal bowel sounds, non tender Genitourinary/Rectal: normal genital exam Extremities: normal range of motion Skin Exam: normal pigmentation 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 Last 24 Hour Vital Signs Date Time Temp Pulse Resp B/P Pulse Ox O2 Delivery O2 Flow Rate FiO2 04/01/17 16:00 14.0 40 04/01/17 15:22 80 15 100 Mechanical Ventilator 40 04/01/17 15:12 77 14 40 04/01/17 15:12 77 14 100 Mechanical Ventilator 40 04/01/17 13:17 87 14 40 04/01/17 11:43 85 19 110/69 100 Mechanical Ventilator 14.0 40 04/01/17 11:09 99.7 84 14 107/70 100 Mechanical Ventilator 14.0 40 04/01/17 11:00 86 14 40 04/01/17 09:10 93 15 Mechanical Ventilator 14.0 40 04/01/17 09:10 93 15 120/67 98 Mechanical Ventilator 40 04/01/17 09:09 85 17 40 04/01/17 09:05 14.0 40 04/01/17 08:58 92 20 130/70 100 Mechanical Ventilator 40 Laboratory Tests Test 04/01/17 09:20 White Blood Count 27.4 K/UL (4.8-10.8) *H Red Blood Count 4.62 M/UL (4.70-6.10) L Hemoglobin 11.7 G/DL (14.2-18.0) L Hematocrit 38.2 % (42.0-52.0) L Mean Corpuscular Volume 83 FL (80-99) Mean Corpuscular Hemoglobin 25.3 PG (27.0-31.0) L Mean Corpuscular Hemoglobin Concent 30.5 G/DL (32.0-36.0) L Red Cell Distribution Width 15.1 % (11.6-14.8) H Platelet Count 484 K/UL (150-450) H Mean Platelet Volume 7.1 FL (6.5-10.1) Neutrophils (%) (Auto) % (45.0-75.0) Lymphocytes (%) (Auto) % (20.0-45.0) Monocytes (%) (Auto) % (1.0-10.0) Eosinophils (%) (Auto) % (0.0-3.0) Basophils (%) (Auto) % (0.0-2.0) Differential Total Cells Counted 100 Neutrophils % (Manual) 78 % (45-75) H Lymphocytes % (Manual) 14 % (20-45) L Monocytes % (Manual) 7 % (1-10) Eosinophils % (Manual) 1 % (0-3) Basophils % (Manual) 0 % (0-2) Band Neutrophils 0 % (0-8) Platelet Estimate Adequate Platelet Morphology Normal Hypochromasia 1+ Anisocytosis 1+ Prothrombin Time 9.9 SEC (9.30-11.50) Prothromb Time International Ratio 0.9 (0.9-1.1) Activated Partial Thromboplast Time 23 SEC (23-33) Urine Color Yellow Urine Appearance Slightly cloudy Urine pH 8 (4.5-8.0) Urine Specific Perry 1.010 (1.005-1.035) Urine Protein 1+ (NEGATIVE) H Urine Glucose (UA) Negative (NEGATIVE) Urine Ketones Negative (NEGATIVE) Urine Occult Blood 3+ (NEGATIVE) H Urine Nitrite Negative (NEGATIVE) Urine Bilirubin Negative (NEGATIVE) Urine Urobilinogen Normal MG/DL (0.0-1.0) Urine Leukocyte Esterase 1+ (NEGATIVE) H Urine RBC 10-15 /HPF (0 - 0) H Urine WBC 2-4 /HPF (0 - 0) Urine Squamous Epithelial Cells Occasional /LPF Urine Transitional Epithelial Cells /LPF (NONE) Urine Amorphous Sediment Moderate /LPF (NONE) H Urine Bacteria Few /HPF (NONE) Sodium Level 138 mEQ/L (135-145) Potassium Level 3.5 mEQ/L (3.4-4.9) Chloride Level 95 mEQ/L (98-107) L Carbon Dioxide Level 30 mEQ/L (20-30) Anion Gap 13 (5-15) Blood Urea Nitrogen 19 mg/dL (7-23) Creatinine 0.7 mg/dL (0.7-1.2) Estimat Glomerular Filtration Rate > 60 mL/min (>60) Glucose Level 119 mg/dL (74-106) H Calcium Level 9.6 mg/dL (8.6-10.2) Total Bilirubin 0.2 mg/dL (0.0-1.2) Aspartate Amino Transf (AST/SGOT) 18 U/L (5-40) Alanine Aminotransferase (ALT/SGPT) 12 U/L (3-41) Alkaline Phosphatase 93 U/L (40-129) Total Protein 7.6 g/dL (6.6-8.7) Albumin 3.7 g/dL (3.5-5.2) Globulin 3.9 g/dL Albumin/Globulin Ratio 0.9 (1.0-2.7) L Lipase 49 U/L (< 60) Height (Feet): 5 Height (Inches): 10.00 Weight (Pounds): 170 Medications Current Medications Medications (Trade) Dose Ordered Sig/Wanda Route PRN Reason Start Time Stop Time Status Last Admin Dose Admin Acetaminophen (Tylenol) 650 mg Q4H PRN ORAL T>100.5 04/01/17 10:00 05/01/17 09:59 Al Hydroxide/Mg Hydroxide (Mylanta II) 30 ml Q6H PRN ORAL dyspepsia 04/01/17 10:00 05/01/17 09:59 Albuterol/ Ipratropium (DuoNeb 0.5-3(2.5)mg/3ml) 3 ml Q8HRT HHN 04/01/17 15:00 04/06/17 14:59 04/01/17 15:12 Dextrose (Dextrose 50%) STAT PRN IV Hypoglycemia 04/01/17 10:00 05/01/17 09:59 Dextrose/Sodium Chloride (D5 0.45% NS) 1,000 ml @ 75 mls/hr [id number] IV 04/01/17 11:00 05/01/17 10:59 04/01/17 14:06 Diphenhydramine HCl (Benadryl) 25 mg Q6H PRN ORAL Itching/Pruritis 04/01/17 10:00 05/01/17 09:59 Levothyroxine Sodium (Synthroid) 50 mcg DAILY GT 04/02/17 09:00 05/02/17 08:59 Morphine Sulfate (Morphine Sulfate) 2 mg Q4H PRN IVP Severe Pain (Pain Scale 7-10) 04/01/17 10:00 04/08/17 09:59 Nitroglycerin (Ntg) 0.4 mg Q5M X 3 DOSES PRN SL Prn Chest Pain 04/01/17 10:00 05/01/17 09:59 Ondansetron HCl (Zofran) 4 mg Q6H PRN IVP Nausea & Vomiting 04/01/17 10:00 05/01/17 09:59 Polyethylene Glycol (Miralax) 17 gm HSPRN PRN ORAL Constipation 04/01/17 21:00 05/01/17 20:59 Sucralfate 1 gm 1 gm FOUR TIMES A DAY GT 04/01/17 13:00 05/01/17 12:59 04/01/17 14:09 Assessment/Plan Problem List: (1) Sepsis ICD Codes: A41.9 - Sepsis, unspecified organism SNOMED: 18986365 (2) Upper GI bleed ICD Codes: K92.2 - Upper gastrointestinal hemorrhage SNOMED: 71660122 (3) Respiratory failure, [id number] ICD Codes: J96.20 - Respiratory failure, [id number] SNOMED: 24086950 (4) Protein-calorie malnutrition, severe ICD Codes: E43 - Unspecified severe protein-calorie malnutrition SNOMED: 355846483 (5) Feeding by G-tube ICD Codes: Z93.1 - Gastrostomy status SNOMED: 090750065, 615218385 Respiratory: monitor respiratory rate, adjust FIO2, CXR Cardiac: continue to monitor HR/BP Renal: F/U I&O, keep IV fluid, check electrolytes Infectious Disease: check cultures Gastrointestinal: hold feedings Endocrine: monitor blood sugar, continue sliding scale insulin Hematologic: monitor H/H, transfuse if hgb<8.5 Neurologic: PRN Ativan, keep patient comfortable Prophylaxis: Protonix Disposition: keep in ICU Notes Reviewed: 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 with: nurses, consultants MIKAYLA WILLOUGHBY Apr 01, 2017 16:16
[2017-04-01 20:00] VITALS: BP 107/74
[2017-04-01] MEDS ORDERED: Miralax 17gm pkt ORAL PRN (21:00)
[2017-04-02] VITALS: BP 113/71
[2017-04-02] MEDS: D5 1/2NS 1,000 ML IV SCH ×2 (00:01→13:42)
[2017-04-02 04:00] VITALS: BP 126/82
[2017-04-02] MEDS: DuoNeb 0.5-3(2.5)mg/3ml neb HHN SCH ×3 (06:43→23:10)
[2017-04-02 08:00] VITALS: BP 128/71
[2017-04-02] MEDS: Sucralfate 1gm tab GT SCH ×4 (08:16→21:00)
[2017-04-02] MEDS ORDERED: Dyna-Hex 2% Top Sol 8oz TOPIC SCH (09:00)
--- NOTE | 2017-04-02 09:15 | Diagnostic Imaging Report ---
Indication: SOB Technique: XRAY CHEST 1 V Comparison:09/19/2016 Findings: The patient is rotated. Linear density is noted in the left midlung and left lower lung. The heart is normal in size. No alveolar infiltrates. No pleural fluid. No other change. There is a tracheostomy tube. Impression: Tracheostomy. Atelectasis in left midlung and left lower lung. No other change from previous study.
[2017-04-02 12:00] VITALS: BP 131/75
--- NOTE | 2017-04-02 12:01 | GI Initial Consult Note ---
History of Present Illness General Date patient seen: Apr 02, 2017 Time patient seen: 11:53 Reason for Hospitalization: Gastrointestinal Bleed Referring physician: MIKAYLA BANG Reason for Consultation: COFFEE GROUNDS Present Illness HPI [id number] BIBEMS for "2 episodes coffee ground emesis this morning." No other info from EMS, SNF. No family members bedside. GI Consult. HPI as noted above. GI consulted for reports of coffee grounds per SNF. Pt is known to us with multiple previous admissions here at [facility] presents today with reported coffee ground emesis x 2. Presents today with Hgb 11.7 and leukocytosis. Pt had EGD performed last year with known severe esophagitis. Home Meds Active Scripts Amlodipine Besylate (Norvasc) 2.5 Mg Tab, 2.5 MG ORAL DAILY, #30 TAB Prov:Amina Garcia NP (Vanchtein) 01/24/16 Ipratropium/Albuterol Sulfate (DuoNeb 0.5-3(2.5)mg/3ml) 3 Ml Ampul.neb, 3 ML HHN Q4H Y for Shortness of Breath, #20 EA Prov:Amina Garcia NP (Vanchtein) 12/25/15 Ferrous Sulfate (Ferrous Sulfate) 300 Mg/5 Ml Liqd, 300 MG NG BID, #60 ML Prov:Amina Garcia NP (Vanchtein) 12/25/15 Reported Medications Docusate Sodium* (COLACE*) 100 Mg Capsule, 100 MG GT TWICE A DAY, CAP 04/01/17 Sucralfate* (CARAFATE*) 1 Gm Tablet, 1 GM GT FOUR TIMES A DAY, TAB 03/03/16 Bisacodyl (DULCOLAX) 10 Mg Supp.rect, 10 MG RC DAILY Y for Constipation, SUPP 02/02/16 Magnesium Hydroxide* (MILK OF MAGNESIA*) 400 Mg/5 Ml Oral.susp, 30 ML ORAL QHS Y for Constipation, ML 01/19/16 Albuterol Sulfate* (ALBUTEROL SULFATE HHN*) 2.5 Mg/3 Ml Vial.neb, 3 ML INH Q6HR Y for Shortness of Breath, EA 01/19/16 Acetaminophen (Acetaminophen) 650 Mg/20.3 Ml Soln, 640 MG GT Q4HR Y for Prn Headache/Temp > 101, ML 0 Refills 01/19/16 Metoclopramide Hcl* (REGLAN*) 5 Mg Tablet, 5 MG GT EVERY 6 HOURS, TAB 10/24/15 Saccharomyces Boulardii (FLORASTOR*) 250 Mg Capsule, 250 MG GT TWICE A DAY, CAP 09/16/15 Folic Acid* (FOLIC ACID*) 1 Mg Tablet, 1 MG GT DAILY, TAB 09/10/14 Famotidine (FAMOTIDINE) 20 Mg Tablet, 20 MG GT DAILY, #60 TAB 0 Refills 09/10/14 Levothyroxine Sodium* (LEVOTHYROXINE SODIUM*) 50 Mcg Tablet, 50 MCG GT DAILY, TAB Take in the morning on an empty stomach, at least 30 minutes before food. 09/10/14 Oxcarbazepine (Oxcarbazepine) 150 Mg Tab, 300 MG GT TWICE A DAY, #60 TAB 0 Refills 09/10/14 Benztropine Mesylate* (BENZTROPINE MESYLATE*) 1 Mg Tablet, 1 MG GT BID, TAB 09/10/14 Discontinued Reported Medications Meropenem (MEROPENEM) 1 Gm Vial, 1 GM IVPB Q12HR for 1 Day, VIAL 04/05/16 Ertapenem Sodium* (INVanz*) 1 Gm Vial.port, 1 GM IVPB Q24H, #1 VIAL 04/05/16 Multivit-Min/Iron Fum/Folic AC (Dsreu-Kaxgvdq-Hstiufjy Tablet) 1 Each Tablet, 1 EACH GT, TAB 02/02/16 Vancomycin Hcl (Vancomycin) 1 Gm Vial, 1 GM IV, VIAL 02/02/16 Discontinued Scripts Metronidazole* (FLAGYL*) 500 Mg Tablet, 500 MG JT Q8HR, #15 TAB Prov:Amina Garcia (Vanchtein) EGG CASER 01/24/16 Polyethylene Glycol 3350* (MIRALAX*) 17 Gm Powd.pack, 17 GM ORAL BEDTIME, #20 PACK Prov:Amina Garcia NP (Vanchtein) 12/25/15 Med list reviewed/reconciled: Yes Allergies: Coded Allergies: NO KNOWN DRUG ALLERGIES (Verified Allergy, Unknown, 09/11/16) Patient History Limited by: medical condition History Provided By: Medical Record PMH Narrative Past Medical History: other - see HPI Past Surgical History: other - Trach, PEG Pertinent Family History: unable to obtain Social History: Denies: alcohol use, drug use, smoking Immunizations: UTD Reviewed Nursing Documentation: PMH: Agreed, PSxH: Agreed Nursing Documentation-PMH Hx Cardiac Problems: Yes Hx Hypertension: Yes Hx Asthma: Yes Hx Diabetes: Yes Hx Cancer: No History Of Psychiatric Problem: Yes - Parkinson's Hx Neurological Problems: Yes Hx Cerebrovascular Accident: Yes Hx Transient Ischemic Attacks: Yes Hx Dementia: Yes Hx Parkinson's Disease: Yes Hx Encephalitis: Yes Hx Seizures: Yes Hx Epilepsy: Yes Hx Paralysis: Yes - HEMIPLEGIA Hx Concentration Difficulty: Yes Hx Speech Problem: Yes Hx Aphasia: Yes Hx Weakness: Yes Hx Fatigue: Yes Hx Neurologic Surgery: No Hx Brain Shunt: No Review of Systems All Other Systems: limited Physical Exam Vital Signs Date Time Temp Pulse Resp B/P Pulse Ox O2 Delivery O2 Flow Rate FiO2 04/01/17 08:58 92 20 130/70 100 Mechanical Ventilator 40 04/01/17 09:05 14.0 04/01/17 11:09 99.7 Sp02 EP Interpretation: reviewed General Appearance: no apparent distress Head: normocephalic EENT: PERRL/EOMI Neck: full range of motion, supple Respiratory: other - mech vent Cardiovascular: normal rate Gastrointestinal: gt - c/d/i Rectal: deferred Neurologic: alert Skin: normal color, no rash, warm/dry Lymphatic: normal inspection Current Medications Current Medications Medications (Trade) Dose Ordered Sig/Wanda Route PRN Reason Start Time Stop Time Status Last Admin Dose Admin Acetaminophen (Tylenol) 650 mg Q4H PRN ORAL T>100.5 04/01/17 10:00 05/01/17 09:59 Al Hydroxide/Mg Hydroxide (Mylanta II) 30 ml Q6H PRN ORAL dyspepsia 04/01/17 10:00 05/01/17 09:59 Albuterol/ Ipratropium (DuoNeb 0.5-3(2.5)mg/3ml) 3 ml Q8HRT HHN 04/01/17 15:00 04/06/17 14:59 04/02/17 06:43 Chlorhexidine Gluconate (Jasmin-Hex 2%) 1 applic DAILY TOPIC 04/02/17 09:00 05/02/17 08:59 Dextrose (Dextrose 50%) STAT PRN IV Hypoglycemia 04/01/17 10:00 05/01/17 09:59 Dextrose/Sodium Chloride (D5 0.45% NS) 1,000 ml @ 75 mls/hr [id number] IV 04/01/17 11:00 05/01/17 10:59 04/02/17 00:01 Diphenhydramine HCl (Benadryl) 25 mg Q6H PRN ORAL Itching/Pruritis 04/01/17 10:00 05/01/17 09:59 Levothyroxine Sodium (Synthroid) 50 mcg DAILY GT 04/02/17 09:00 05/02/17 08:59 04/02/17 08:16 Morphine Sulfate (Morphine Sulfate) 2 mg Q4H PRN IVP Severe Pain (Pain Scale 7-10) 04/01/17 10:00 04/08/17 09:59 Nitroglycerin (Ntg) 0.4 mg Q5M X 3 DOSES PRN SL Prn Chest Pain 04/01/17 10:00 05/01/17 09:59 Ondansetron HCl (Zofran) 4 mg Q6H PRN IVP Nausea & Vomiting 04/01/17 10:00 05/01/17 09:59 Polyethylene Glycol (Miralax) 17 gm HSPRN PRN ORAL Constipation 04/01/17 21:00 05/01/17 20:59 Sucralfate 1 gm 1 gm FOUR TIMES A DAY GT 04/01/17 13:00 05/01/17 12:59 04/02/17 08:16 GI: Plan Problems: (1) long term resident (2) Feeding by G-tube (3) Protein-calorie malnutrition, severe (4) Tracheostomy dependence (5) Upper GI bleed (6) Esophagitis (7) Anemia (8) Iron deficiency Plan defer GI procedures given known known severe esophagitis via EGD last year and and stable H&H. PPI BID prn transfusion Carafate place patient on reflux measure and aspiration precautions GTFs per dietary abx fu labs Discussed with Dr. Wilson. Thank you for referring this patient, we will follow. Arabella Quesada N.P. Apr 02, 2017 12:00
--- NOTE | 2017-04-02 12:08 | Pulmonology Progress Note ---
Assessment/Plan Problems: (1) Sepsis (2) Upper GI bleed (3) Respiratory failure, feptu-mg-xaxrsrm (4) Protein-calorie malnutrition, severe (5) Feeding by G-tube Respiratory: monitor respiratory rate, adjust FIO2 Cardiac: continue to monitor HR/BP Renal: F/U I&O, keep IV fluid, check electrolytes Infectious Disease: check cultures, continue antibiotics Gastrointestinal: hold feedings, other - GI evaluation Endocrine: monitor blood sugar, check TSH Hematologic: monitor H/H, transfuse if hgb<8.5 Neurologic: PRN Ativan, PRN Morphine, keep patient comfortable Affect: PRN ativan Prophylaxis: Protonix Notes Reviewed: cardio, 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 with: consultants, cyanide case hardener Subjective ROS Limited/Unobtainable: Yes Constitutional: Reports: no symptoms Allergies: Coded Allergies: NO KNOWN DRUG ALLERGIES (Verified Allergy, Unknown, 09/11/16) Objective Last 24 Hour Vital Signs Date Time Temp Pulse Resp B/P Pulse Ox O2 Delivery O2 Flow Rate FiO2 04/02/17 10:42 82 22 40 04/02/17 09:10 82 14 40 04/02/17 08:40 75 04/02/17 08:00 97.9 76 16 128/71 100 Mechanical Ventilator 40 04/02/17 08:00 40 04/02/17 07:00 89 18 100 Mechanical Ventilator 40 04/02/17 06:49 88 18 100 Mechanical Ventilator 40 04/02/17 06:45 80 16 40 04/02/17 05:16 81 18 40 04/02/17 04:00 98.1 76 18 126/82 100 Mechanical Ventilator 40 04/02/17 04:00 73 04/02/17 04:00 40 04/02/17 03:11 77 18 40 04/02/17 01:08 83 15 40 04/02/17 00:00 40 04/02/17 00:00 75 04/02/17 00:00 98.1 80 15 113/71 98 Mechanical Ventilator 40 04/01/17 23:36 80 19 99 Mechanical Ventilator 40 04/01/17 23:14 77 18 99 Mechanical Ventilator 40 04/01/17 23:12 78 15 40 04/01/17 21:15 85 15 40 04/01/17 20:00 40 04/01/17 20:00 98.3 85 14 107/74 99 Mechanical Ventilator 40 04/01/17 20:00 83 04/01/17 19:16 83 17 40 04/01/17 16:39 84 20 40 04/01/17 16:00 14.0 40 04/01/17 16:00 99.1 84 21 133/76 100 Mechanical Ventilator 40 04/01/17 16:00 85 04/01/17 15:22 80 15 100 Mechanical Ventilator 40 04/01/17 15:12 77 14 40 04/01/17 15:12 77 14 100 Mechanical Ventilator 40 04/01/17 13:17 87 14 40 Intake and Output 04/01/17 04/02/17 19:00 07:00 Intake Total 375 ml 950 ml Output Total 1000 ml Balance -625 ml 950 ml Intake Oral 0 ml IV Total 375 ml 900 ml Other 50 ml Output Urine Total 1000 ml # Bowel Movements 3 2 General Appearance: WD/WN HEENT: normocephalic, atraumatic Respiratory/Chest: chest wall non-tender, lungs clear, no respiratory distress Cardiovascular: normal peripheral pulses, normal rate Abdomen: normal bowel sounds, no organomegaly Genitourinary: normal external genitalia Extremities: no cyanosis Skin: no rash, no ulcers Neurologic/Psychiatric: hims coder II-XII grossly normal, no motor/sensory deficits Lymphatic: no neck adenopathy Current Medications Medications (Trade) Dose Ordered Sig/Wanda Route PRN Reason Start Time Stop Time Status Last Admin Dose Admin Acetaminophen (Tylenol) 650 mg Q4H PRN ORAL T>100.5 04/01/17 10:00 05/01/17 09:59 Al Hydroxide/Mg Hydroxide (Mylanta II) 30 ml Q6H PRN ORAL dyspepsia 04/01/17 10:00 05/01/17 09:59 Albuterol/ Ipratropium (DuoNeb 0.5-3(2.5)mg/3ml) 3 ml Q8HRT HHN 04/01/17 15:00 04/06/17 14:59 04/02/17 06:43 Chlorhexidine Gluconate (Jasmin-Hex 2%) 1 applic DAILY TOPIC 04/02/17 09:00 05/02/17 08:59 Dextrose (Dextrose 50%) STAT PRN IV Hypoglycemia 04/01/17 10:00 05/01/17 09:59 Dextrose/Sodium Chloride (D5 0.45% NS) 1,000 ml @ 75 mls/hr [id number] IV 04/01/17 11:00 05/01/17 10:59 04/02/17 00:01 Diphenhydramine HCl (Benadryl) 25 mg Q6H PRN ORAL Itching/Pruritis 04/01/17 10:00 05/01/17 09:59 Levothyroxine Sodium (Synthroid) 50 mcg DAILY GT 04/02/17 09:00 05/02/17 08:59 04/02/17 08:16 Morphine Sulfate (Morphine Sulfate) 2 mg Q4H PRN IVP Severe Pain (Pain Scale 7-10) 04/01/17 10:00 04/08/17 09:59 Nitroglycerin (Ntg) 0.4 mg Q5M X 3 DOSES PRN SL Prn Chest Pain 04/01/17 10:00 05/01/17 09:59 Ondansetron HCl (Zofran) 4 mg Q6H PRN IVP Nausea & Vomiting 04/01/17 10:00 05/01/17 09:59 Pantoprazole (Protonix) 40 mg EVERY 12 HOURS IVP 04/02/17 21:00 05/02/17 20:59 Polyethylene Glycol (Miralax) 17 gm HSPRN PRN ORAL Constipation 04/01/17 21:00 05/01/17 20:59 Sucralfate (Carafate) 1 gm FOUR TIMES A DAY GT 04/02/17 13:00 05/02/17 12:59 UNV Sucralfate 1 gm 1 gm FOUR TIMES A DAY GT 04/01/17 13:00 05/01/17 12:59 04/02/17 08:16 MIKAYLA WILLOUGHBY Apr 02, 2017 12:08
[2017-04-02 12:15] LABS: BASOPHILS % (AUTO) 0.6 % (0.0-2.0); EOSINOPHILS % (AUTO) 9.5 % (0.0-3.0); LYMPHOCYTES % (AUTO) 18.5 % (20.0-45.0); MEAN CORPUSCULAR HEMOGLOBIN 26.5 PG (27.0-31.0); MEAN CORPUSCULAR HGB CONC 32.1 G/DL (32.0-36.0); MEAN CORPUSCULAR VOLUME 82 FL (80-99); MEAN PLATELET VOLUME 7.5 FL (6.5-10.1); MONOCYTES % (AUTO) 9.9 % (1.0-10.0); NEUTROPHILS % (AUTO) 61.5 % (45.0-75.0); PLATELET COUNT 365 K/UL (150-450); RED BLOOD COUNT 3.47 M/UL (4.70-6.10); WHITE BLOOD COUNT 13.7 K/UL (4.8-10.8)
--- NOTE | 2017-04-02 12:30 | Consultation ---
Consult Note Consult Note ID DIC # [id number] GLYNN BURGOS M.D. Apr 02, 2017 12:30
[2017-04-02 12:34] LABS: PROTHROMBIN TIME 10.1 SEC (9.30-11.50)
[2017-04-02 12:37] LABS: ALANINE AMINOTRANSFERASE 10 U/L (3-41); ANION GAP 12 (5-15); ASPARTATE AMINO TRANSFERASE 12 U/L (5-40); CALCIUM 8.8 mg/dL (8.6-10.2); CARBON DIOXIDE 27 mEQ/L (20-30); CHLORIDE 95 mEQ/L (98-107); GLOMERULAR FILTRATION RATE > 60 mL/min (>60); HEMOLYSIS 0; POTASSIUM 2.9 mEQ/L (3.4-4.9); SODIUM 134 mEQ/L (135-145); TOTAL PROTEIN 6.4 g/dL (6.6-8.7)
[2017-04-02] MEDS ORDERED: Sucralfate 1gm tab GT SCH (13:00)
[2017-04-02] MEDS: Piperacillin/Tazobactam 3.375 GM in D5W 110 ML IVPB SCH ×2 (14:03→22:29)
[2017-04-02 16:00] VITALS: BP 112/58
[2017-04-02] MEDS ORDERED: Tubing IV Secondary IV ONE (16:24)
[2017-04-02] MEDS ORDERED: D5 1/2NS 1000ml IV ONE (16:24)
[2017-04-02 20:00] VITALS: BP 115/67
--- NOTE | 2017-04-02 20:16 | Consultation ---
DATE OF CONSULTATION: INFECTIOUS DISEASE CONSULTATION CONSULTING PHYSICIAN: Cesario Daniels M.D. REQUESTING PHYSICIAN: Huma Keating M.D. REASON FOR CONSULTATION: Evaluation of the patient for sepsis, of GI bleed, leukocytosis, and antibiotic management. HISTORY OF PRESENT ILLNESS: The patient is a 66-year-old male with multiple medical problems, who was admitted to this medical center with another episode of GI bleed and episodes of coffee-ground emesis. The patient was found to have leukocytosis. An Infectious Diseases consultation has been requested for evaluation of the patient and antibiotic management. PAST MEDICAL HISTORY: 1. History of recurrent urinary tract infection. 2. History of recurrent pneumonia. 3. History of upper GI bleed. 4. History of esophagitis. 5. Ventilator-dependant respiratory failure. 6. History of PEG and trach placement. 7. Chronic encephalopathy/dementia. MEDICATIONS: The patient received one dose of vancomycin earlier. ALLERGIES: No known drug allergies. SOCIAL HISTORY: The patient lives in skilled nursing. FAMILY HISTORY: Unavailable. REVIEW OF SYSTEMS: Unobtainable. PHYSICAL EXAMINATION: VITAL SIGNS: Temperature 97.9 degrees, pulse 86, respiratory rate 18, and blood pressure 128/71. HEENT: Mild pale conjunctivae. No icterus. NECK: No lymphadenopathy. CHEST: Coarse breathing sounds. HEART: S1 and S2. ABDOMEN: Soft. EXTREMITIES: No cyanosis. NEUROLOGIC: Nonverbal. LABORATORY DATA: White blood cells 13.7, decreased from 27.4, hemoglobin 9.2, and platelets 365,000. UA overall unremarkable. BUN 19 and creatinine 0.6. ALT, AST, and alkaline phosphatase are unremarkable. Chest x-ray, mid lungs and left lower lung. ASSESSMENT: The patient is a 66-year-old male with multiple medical problems as mentioned above. Also, the patient has, 1. Leukocytosis. 2. Possible sepsis. 3. Possible aspiration pneumonia. 4. Possible urinary tract infection. PLAN: 1. We will start the patient on IV Zosyn day #1. 2. Monitor CBC. 3. Monitor BMP. 4. Monitor cultures (blood and sputum). 5. We will follow GI recommendations. 6. Monitor chest x-ray. 7. Based on the patient's clinical course and labs, we will do further recommendations. Thank you Dr. Keating for allowing me to participate in the care of this patient. I will follow the patient with you during this hospitalization. Cesario Daniels M.D. DR: PADILLA JOB#: [id number] CC:
[2017-04-02] MEDS: Pantoprazole Inj IVP SCH (21:00)
[2017-04-02] MEDS ORDERED: Heparin 2000 units/Ns 1000ml INJ ONE (22:30)
[2017-04-03] VITALS (7 sets, daily range): BP systolic 108–128; BP diastolic 55–72
[2017-04-03] MEDS: D5 1/2NS 1,000 ML IV SCH (02:44)
[2017-04-03] MEDS: Piperacillin/Tazobactam 3.375 GM in D5W 110 ML IVPB SCH ×3 (05:23→21:58)
[2017-04-03] MEDS: DuoNeb 0.5-3(2.5)mg/3ml neb HHN SCH ×3 (07:20→23:00)
[2017-04-03] MEDS: Pantoprazole Inj IVP SCH ×2 (08:40→20:57)
[2017-04-03] MEDS: Sucralfate 1gm tab GT SCH ×4 (08:40→20:57)
[2017-04-03] MEDS ORDERED: Dyna-Hex 2% Top Sol 8oz TOPIC SCH ×2 (09:00→21:00)
--- NOTE | 2017-04-03 09:19 | Infectious Diseases Prog Note ---
Assessment/Plan Assessment/Plan A; Leukocytosis improving Atelectasis/pneumonia GI bleeding Anemia VDRF P: continue Zosyn will f/u cultures Subjective ROS Limited/Unobtainable: Yes Allergies: Coded Allergies: NO KNOWN DRUG ALLERGIES (Verified Allergy, Unknown, 09/11/16) Objective Vital Signs Last 24 Hour Vital Signs Date Time Temp Pulse Resp B/P Pulse Ox O2 Delivery O2 Flow Rate FiO2 04/03/17 09:02 70 14 40 04/03/17 08:00 97.9 72 16 119/56 100 Mechanical Ventilator 40 04/03/17 07:23 74 21 40 04/03/17 07:22 74 18 100 Mechanical Ventilator 40 04/03/17 07:10 72 18 100 Mechanical Ventilator 40 04/03/17 04:47 70 14 40 04/03/17 04:00 40 04/03/17 04:00 74 04/03/17 04:00 98.1 84 16 114/58 100 Mechanical Ventilator 40 04/03/17 03:06 74 21 40 04/03/17 01:28 79 21 40 04/03/17 00:00 78 04/03/17 00:00 97.9 84 16 124/72 100 Mechanical Ventilator 40 04/03/17 00:00 40 04/02/17 23:20 72 14 100 Mechanical Ventilator 40 04/02/17 23:08 68 14 100 Mechanical Ventilator 40 04/02/17 23:07 68 14 40 04/02/17 21:07 99 17 40 04/02/17 20:00 40 04/02/17 20:00 97.4 84 16 115/67 100 Mechanical Ventilator 40 04/02/17 20:00 72 04/02/17 19:18 79 14 40 04/02/17 17:07 84 16 40 04/02/17 16:00 73 04/02/17 16:00 97.8 74 14 112/58 100 Mechanical Ventilator 40 04/02/17 16:00 40 04/02/17 15:35 92 18 98 Mechanical Ventilator 40 04/02/17 15:25 97 14 99 Mechanical Ventilator 40 04/02/17 15:23 14 40 04/02/17 12:46 87 20 40 04/02/17 12:00 40 04/02/17 12:00 97.9 74 14 131/75 100 Mechanical Ventilator 40 04/02/17 11:50 71 04/02/17 10:42 82 22 40 Height (Feet): 5 Height (Inches): 10.00 Weight (Pounds): 170 General Appearance: no acute distress HEENT: status post trach Respiratory/Chest: lungs clear, other - on ventilator Cardiovascular: normal rate Abdomen: soft, non tender Extremities: no edema Neurologic/Psychiatric: other - sleeping Microbiology Date/Time Source Procedure Growth Status 04/01/17 11:29 Blood Blood Culture - Preliminary NO GROWTH AFTER 24 HOURS Resulted 04/01/17 11:29 Blood Blood Culture - Preliminary NO GROWTH AFTER 24 HOURS Resulted 04/02/17 15:20 Urine,Cystoscopy Urine Culture - Preliminary NO GROWTH Resulted Laboratory Tests Test 04/02/17 11:10 04/02/17 16:15 White Blood Count 13.7 K/UL (4.8-10.8) H Red Blood Count 3.47 M/UL (4.70-6.10) L Hemoglobin 9.2 G/DL (14.2-18.0) L Hematocrit 28.6 % (42.0-52.0) L Mean Corpuscular Volume 82 FL (80-99) Mean Corpuscular Hemoglobin 26.5 PG (27.0-31.0) L Mean Corpuscular Hemoglobin Concent 32.1 G/DL (32.0-36.0) Red Cell Distribution Width 15.0 % (11.6-14.8) H Platelet Count 365 K/UL (150-450) Mean Platelet Volume 7.5 FL (6.5-10.1) Neutrophils (%) (Auto) 61.5 % (45.0-75.0) Lymphocytes (%) (Auto) 18.5 % (20.0-45.0) L Monocytes (%) (Auto) 9.9 % (1.0-10.0) Eosinophils (%) (Auto) 9.5 % (0.0-3.0) H Basophils (%) (Auto) 0.6 % (0.0-2.0) Prothrombin Time 10.1 SEC (9.30-11.50) Prothromb Time International Ratio 1.0 (0.9-1.1) Activated Partial Thromboplast Time 29 SEC (23-33) Sodium Level 134 mEQ/L (135-145) L Potassium Level 2.9 mEQ/L (3.4-4.9) L Chloride Level 95 mEQ/L (98-107) L Carbon Dioxide Level 27 mEQ/L (20-30) Anion Gap 12 (5-15) Blood Urea Nitrogen 16 mg/dL (7-23) Creatinine 1.0 mg/dL (0.7-1.2) Estimat Glomerular Filtration Rate > 60 mL/min (>60) Glucose Level 121 mg/dL (74-106) H Calcium Level 8.8 mg/dL (8.6-10.2) Total Bilirubin 0.3 mg/dL (0.0-1.2) Aspartate Amino Transf (AST/SGOT) 12 U/L (5-40) Alanine Aminotransferase (ALT/SGPT) 10 U/L (3-41) Alkaline Phosphatase 78 U/L (40-129) Total Protein 6.4 g/dL (6.6-8.7) L Albumin 3.3 g/dL (3.5-5.2) L Globulin 3.1 g/dL Albumin/Globulin Ratio 1.0 (1.0-2.7) Stool Occult Blood Pending Current Medications Medications (Trade) Dose Ordered Sig/Wanda Route PRN Reason Start Time Stop Time Status Last Admin Dose Admin Acetaminophen (Tylenol) 650 mg Q4H PRN ORAL T>100.5 04/01/17 10:00 05/01/17 09:59 Al Hydroxide/Mg Hydroxide (Mylanta II) 30 ml Q6H PRN ORAL dyspepsia 04/01/17 10:00 05/01/17 09:59 Albuterol/ Ipratropium (DuoNeb 0.5-3(2.5)mg/3ml) 3 ml Q8HRT HHN 04/01/17 15:00 04/06/17 14:59 04/03/17 07:20 Chlorhexidine Gluconate (Jasmin-Hex 2%) 1 applic DAILY TOPIC 04/03/17 21:00 05/03/17 20:59 Dextrose (Dextrose 50%) STAT PRN IV Hypoglycemia 04/01/17 10:00 05/01/17 09:59 Dextrose/Sodium Chloride (D5 0.45% NS) 1,000 ml @ 75 mls/hr [id number] IV 04/01/17 11:00 05/01/17 10:59 04/03/17 02:44 Diphenhydramine HCl (Benadryl) 25 mg Q6H PRN ORAL Itching/Pruritis 04/01/17 10:00 05/01/17 09:59 Levothyroxine Sodium (Synthroid) 50 mcg DAILY GT 04/02/17 09:00 05/02/17 08:59 04/03/17 08:40 Morphine Sulfate (Morphine Sulfate) 2 mg Q4H PRN IVP Severe Pain (Pain Scale 7-10) 04/01/17 10:00 04/08/17 09:59 Nitroglycerin (Ntg) 0.4 mg Q5M X 3 DOSES PRN SL Prn Chest Pain 04/01/17 10:00 05/01/17 09:59 Ondansetron HCl (Zofran) 4 mg Q6H PRN IVP Nausea & Vomiting 04/01/17 10:00 05/01/17 09:59 Pantoprazole 40 mg 40 mg EVERY 12 HOURS IVP 04/02/17 21:00 05/02/17 20:59 04/03/17 08:40 Piperacillin Sod/ Tazobactam Sod/ Dextrose (Zosyn/D5W) 110 ml @ 27.5 mls/hr EVERY 8 HOURS IVPB 04/02/17 14:00 04/07/17 13:59 04/03/17 05:23 Polyethylene Glycol (Miralax) 17 gm HSPRN PRN ORAL Constipation 04/01/17 21:00 05/01/17 20:59 Sucralfate 1 gm 1 gm FOUR TIMES A DAY GT 04/01/17 13:00 05/01/17 12:59 04/03/17 08:40 SHANNA BERRY Apr 03, 2017 09:19
[2017-04-03] MEDS ORDERED: NS 275ml ONE (10:04)
[2017-04-03] MEDS ORDERED: D5 1/2NS 1000ml IV ONE (10:04)
[2017-04-03] MEDS ORDERED: Tubing IV Secondary IV ONE (10:04)
--- NOTE | 2017-04-03 11:27 | GI Progress Note ---
Assessment/Plan Problems: (1) detention resident ICD Codes: Z59.3 - Problems related to living in residential institution SNOMED: 770372664 (2) Psychosis ICD Codes: F29 - Psychosis SNOMED: 33567552 (3) Dementia ICD Codes: F03.90 - Dementia SNOMED: 30526491 (4) Alzheimer's dementia ICD Codes: G30.9 - Alzheimer's disease, unspecified SNOMED: 44835558 (5) Anemia ICD Codes: D64.9 - Anemia, unspecified SNOMED: 160520877 (6) Iron deficiency ICD Codes: E61.1 - Iron deficiency SNOMED: 76512375 (7) Feeding by G-tube ICD Codes: Z93.1 - Gastrostomy status SNOMED: 412743442, 425222318 (8) Protein-calorie malnutrition, severe ICD Codes: E43 - Unspecified severe protein-calorie malnutrition SNOMED: 914195561 (9) Esophagitis ICD Codes: K20.9 - Esophagitis SNOMED: 02724563 Status: stable Status Narrative Discussed with . Assessment/Plan defer GI procedures given known severe esophagitis via EGD last year. stable PPI BID + carafate prn blood transfusion reflux measure and aspiration precautions GTFs per dietary fu OB stool abx fu labs Subjective Subjective limited Objective Last 24 Hour Vital Signs Date Time Temp Pulse Resp B/P Pulse Ox O2 Delivery O2 Flow Rate FiO2 04/03/17 11:18 73 14 40 04/03/17 09:02 70 14 40 04/03/17 08:00 40 04/03/17 08:00 97.9 72 16 119/56 100 Mechanical Ventilator 40 04/03/17 08:00 73 04/03/17 07:23 74 21 40 04/03/17 07:22 74 18 100 Mechanical Ventilator 40 04/03/17 07:10 72 18 100 Mechanical Ventilator 40 04/03/17 04:47 70 14 40 04/03/17 04:00 40 04/03/17 04:00 74 04/03/17 04:00 98.1 84 16 114/58 100 Mechanical Ventilator 40 04/03/17 03:06 74 21 40 04/03/17 01:28 79 21 40 04/03/17 00:00 78 04/03/17 00:00 97.9 84 16 124/72 100 Mechanical Ventilator 40 04/03/17 00:00 40 04/02/17 23:20 72 14 100 Mechanical Ventilator 40 04/02/17 23:08 68 14 100 Mechanical Ventilator 40 04/02/17 23:07 68 14 40 04/02/17 21:07 99 17 40 04/02/17 20:00 40 04/02/17 20:00 97.4 84 16 115/67 100 Mechanical Ventilator 40 04/02/17 20:00 72 04/02/17 19:18 79 14 40 04/02/17 17:07 84 16 40 04/02/17 16:00 73 04/02/17 16:00 97.8 74 14 112/58 100 Mechanical Ventilator 40 04/02/17 16:00 40 04/02/17 15:35 92 18 98 Mechanical Ventilator 40 04/02/17 15:25 97 14 99 Mechanical Ventilator 40 04/02/17 15:23 14 40 04/02/17 12:46 87 20 40 04/02/17 12:00 40 04/02/17 12:00 97.9 74 14 131/75 100 Mechanical Ventilator 40 04/02/17 11:50 71 Intake and Output 04/02/17 04/03/17 19:00 07:00 Intake Total 2260 ml 1100 ml Output Total 900 ml 500 ml Balance 1360 ml 600 ml Free Water 150 ml IV Total 1950 ml 825 ml Tube Feeding 100 ml 275 ml Other 60 ml Output Urine Total 900 ml 500 ml # Bowel Movements 1 Laboratory Tests Test 04/02/17 16:15 Stool Occult Blood Pending Microbiology Date/Time Source Procedure Growth Status 04/02/17 15:20 Urine,Cystoscopy Urine Culture - Preliminary NO GROWTH Resulted Height (Feet): 5 Height (Inches): 10.00 Weight (Pounds): 170 General Appearance: no apparent distress, alert Cardiovascular: normal rate Respiratory/Chest: other - mech vent Abdominal Exam: GT site - c/d/i Arabella Quesada N.P. Apr 03, 2017 11:27
--- NOTE | 2017-04-03 12:28 | Diagnostic Imaging Report ---
APPROVED REPORT CPT Code: 62409 Present Symptoms Lower Extremity Pain: Bilateral BILATERAL: Imaging reveals a patent deep venous system bilaterally. There is no evidence of thrombus within the femoral, popliteal or tibial segments. The greater saphenous veins are also within normal limits. Doppler indicates normal spontaneous flow within these segments.
[2017-04-03] MEDS ORDERED: KCl 10% 40mEq/30ml liquid GT ONE (12:30)
--- NOTE | 2017-04-03 19:56 | Pulmonology Progress Note ---
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 with: nurses, consultants, case briefer Subjective ROS Limited/Unobtainable: No Constitutional: Reports: no symptoms HEENT: Repors: no symptoms Respiratory: Reports: no symptoms Allergies: Coded Allergies: NO KNOWN DRUG ALLERGIES (Verified Allergy, Unknown, 09/11/16) Objective Last 24 Hour Vital Signs Date Time Temp Pulse Resp B/P Pulse Ox O2 Delivery O2 Flow Rate FiO2 04/03/17 19:15 77 14 40 04/03/17 17:06 87 16 40 04/03/17 16:00 93 04/03/17 16:00 40 04/03/17 16:00 97.3 85 18 128/57 100 Mechanical Ventilator 40 04/03/17 15:03 81 15 40 04/03/17 15:02 81 15 100 Mechanical Ventilator 40 04/03/17 14:50 89 15 100 Mechanical Ventilator 40 04/03/17 13:20 73 14 40 04/03/17 12:00 40 04/03/17 12:00 69 04/03/17 12:00 97.7 77 16 121/55 100 Mechanical Ventilator 04/03/17 11:18 73 14 40 04/03/17 09:02 70 14 40 04/03/17 08:00 40 04/03/17 08:00 97.9 72 16 119/56 100 Mechanical Ventilator 04/03/17 08:00 73 04/03/17 07:23 74 21 40 04/03/17 07:22 74 18 100 Mechanical Ventilator 40 04/03/17 07:10 72 18 100 Mechanical Ventilator 40 04/03/17 04:47 70 14 40 04/03/17 04:00 40 04/03/17 04:00 74 04/03/17 04:00 98.1 84 16 114/58 100 Mechanical Ventilator 40 04/03/17 03:06 74 21 40 04/03/17 01:28 79 21 40 04/03/17 00:00 78 04/03/17 00:00 97.9 84 16 124/72 100 Mechanical Ventilator 40 04/03/17 00:00 40 04/02/17 23:20 72 14 100 Mechanical Ventilator 40 04/02/17 23:08 68 14 100 Mechanical Ventilator 40 04/02/17 23:07 68 14 40 04/02/17 21:07 99 17 40 04/02/17 20:00 40 04/02/17 20:00 97.4 84 16 115/67 100 Mechanical Ventilator 40 04/02/17 20:00 72 Intake and Output 04/02/17 04/03/17 19:00 07:00 Intake Total 2260 ml 1127.5 ml Output Total 900 ml 500 ml Balance 1360 ml 627.5 ml Free Water 150 ml IV Total 1950 ml 852.5 ml Tube Feeding 100 ml 275 ml Other 60 ml Output Urine Total 900 ml 500 ml # Bowel Movements 1 General Appearance: cachetic HEENT: normocephalic, atraumatic Respiratory/Chest: chest wall non-tender, lungs clear Cardiovascular: normal peripheral pulses, normal rate Abdomen: normal bowel sounds, soft, non tender Genitourinary: normal external genitalia Extremities: no cyanosis Microbiology Date/Time Source Procedure Growth Status 04/01/17 11:29 Blood Blood Culture - Preliminary NO GROWTH AFTER 24 HOURS Resulted 04/01/17 11:29 Blood Blood Culture - Preliminary NO GROWTH AFTER 24 HOURS Resulted 04/01/17 09:20 Nasal Nares MRSA Culture - Final NO METHICILLIN RESISTANT STAPH AUREUS... Complete 04/02/17 15:20 Urine,Cystoscopy Urine Culture - Preliminary NO GROWTH Resulted Current Medications Medications (Trade) Dose Ordered Sig/Wanda Route PRN Reason Start Time Stop Time Status Last Admin Dose Admin Acetaminophen (Tylenol) 650 mg Q4H PRN ORAL T>100.5 04/01/17 10:00 05/01/17 09:59 Al Hydroxide/Mg Hydroxide (Mylanta II) 30 ml Q6H PRN ORAL dyspepsia 04/01/17 10:00 05/01/17 09:59 Albuterol/ Ipratropium (DuoNeb 0.5-3(2.5)mg/3ml) 3 ml Q8HRT N 04/01/17 15:00 04/06/17 14:59 04/03/17 14:59 Dextrose (Dextrose 50%) STAT PRN IV Hypoglycemia 04/01/17 10:00 05/01/17 09:59 Diphenhydramine HCl (Benadryl) 25 mg Q6H PRN ORAL Itching/Pruritis 04/01/17 10:00 05/01/17 09:59 Levothyroxine Sodium (Synthroid) 50 mcg DAILY GT 04/02/17 09:00 05/02/17 08:59 04/03/17 08:40 Morphine Sulfate (Morphine Sulfate) 2 mg Q4H PRN IVP Severe Pain (Pain Scale 7-10) 04/01/17 10:00 04/08/17 09:59 Nitroglycerin (Ntg) 0.4 mg Q5M X 3 DOSES PRN SL Prn Chest Pain 04/01/17 10:00 05/01/17 09:59 Ondansetron HCl (Zofran) 4 mg Q6H PRN IVP Nausea & Vomiting 04/01/17 10:00 05/01/17 09:59 Pantoprazole 40 mg 40 mg EVERY 12 HOURS IVP 04/02/17 21:00 05/02/17 20:59 04/03/17 08:40 Piperacillin Sod/ Tazobactam Sod/ Dextrose (Zosyn/D5W) 110 ml @ 27.5 mls/hr EVERY 8 HOURS IVPB 04/02/17 14:00 04/07/17 13:59 04/03/17 13:01 Polyethylene Glycol (Miralax) 17 gm HSPRN PRN ORAL Constipation 04/01/17 21:00 05/01/17 20:59 Sucralfate (Carafate) 1 gm FOUR TIMES A DAY GT 04/01/17 13:00 05/01/17 12:59 04/03/17 17:37 MIKAYLA WILLOUGHBY Apr 03, 2017 19:56
[2017-04-04 04:00] VITALS: BP 112/66
[2017-04-04] MEDS: Piperacillin/Tazobactam 3.375 GM in D5W 110 ML IVPB SCH ×3 (05:46→21:30)
[2017-04-04 05:52] LABS: BASOPHILS % (AUTO) 0.5 % (0.0-2.0); EOSINOPHILS % (AUTO) 12.4 % (0.0-3.0); MEAN CORPUSCULAR HEMOGLOBIN 24.9 PG (27.0-31.0); MEAN CORPUSCULAR HGB CONC 30.4 G/DL (32.0-36.0); MEAN CORPUSCULAR VOLUME 82 FL (80-99); MEAN PLATELET VOLUME 7.4 FL (6.5-10.1); MONOCYTES % (AUTO) 10.7 % (1.0-10.0); NEUTROPHILS % (AUTO) 58.3 % (45.0-75.0); PLATELET COUNT 355 K/UL (150-450); RED BLOOD COUNT 3.36 M/UL (4.70-6.10); RED CELL DISTRIBUTION WIDTH 14.9 % (11.6-14.8); WHITE BLOOD COUNT 10.4 K/UL (4.8-10.8)
[2017-04-04 06:06] LABS: ANION GAP 13 (5-15); CALCIUM 8.8 mg/dL (8.6-10.2); CARBON DIOXIDE 24 mEQ/L (20-30); CHLORIDE 103 mEQ/L (98-107); GLOMERULAR FILTRATION RATE > 60 mL/min (>60); HEMOLYSIS 1; POTASSIUM 3.5 mEQ/L (3.4-4.9); SODIUM 140 mEQ/L (135-145)
[2017-04-04] MEDS: DuoNeb 0.5-3(2.5)mg/3ml neb HHN SCH ×3 (07:12→22:55)
--- NOTE | 2017-04-04 07:56 | Cardiology Report ---
APPROVED REPORT EKG Measurement Heart [id number] Sinus rhythm with premature atrial complexes with aberrant conduction Otherwise normal ECG
[2017-04-04 08:00] VITALS: BP 112/59
[2017-04-04] MEDS: Sucralfate 1gm tab GT SCH ×4 (08:32→20:42)
[2017-04-04] MEDS: Pantoprazole Inj IVP SCH ×2 (08:33→20:45)
--- NOTE | 2017-04-04 09:30 | Infectious Diseases Prog Note ---
Assessment/Plan Assessment/Plan A; Leukocytosis resolved Atelectasis/pneumonia GI bleeding Anemia VDRF P: continue Zosyn will f/u cultures Subjective ROS Limited/Unobtainable: Yes Allergies: Coded Allergies: NO KNOWN DRUG ALLERGIES (Verified Allergy, Unknown, 09/11/16) Objective Vital Signs Last 24 Hour Vital Signs Date Time Temp Pulse Resp B/P Pulse Ox O2 Delivery O2 Flow Rate FiO2 04/04/17 08:00 81 04/04/17 08:00 40 04/04/17 08:00 97.9 81 18 112/59 100 Mechanical Ventilator 40 04/04/17 07:30 82 15 100 Mechanical Ventilator 50.0 40 04/04/17 07:17 40 04/04/17 07:17 79 14 40 04/04/17 07:15 79 16 100 Mechanical Ventilator 40 04/04/17 05:08 82 17 40 04/04/17 04:38 40 04/04/17 04:00 97.4 78 17 112/66 100 Mechanical Ventilator 40 04/04/17 04:00 77 04/04/17 03:08 79 14 40 04/04/17 01:06 90 17 40 04/04/17 01:00 40 04/04/17 00:00 40 04/04/17 00:00 89 04/03/17 23:51 98.8 87 17 108/62 100 Mechanical Ventilator 40 04/03/17 23:03 76 15 100 Mechanical Ventilator 40 04/03/17 23:02 79 14 100 Mechanical Ventilator 40 04/03/17 23:01 77 14 40 04/03/17 21:28 84 15 40 04/03/17 20:00 97.7 78 18 112/57 100 Mechanical Ventilator 40 04/03/17 20:00 40 04/03/17 19:30 79 04/03/17 19:15 77 14 40 04/03/17 17:06 87 16 40 04/03/17 16:00 93 04/03/17 16:00 40 04/03/17 16:00 97.3 85 18 128/57 100 Mechanical Ventilator 40 04/03/17 15:03 81 15 40 04/03/17 15:02 81 15 100 Mechanical Ventilator 40 04/03/17 14:50 89 15 100 Mechanical Ventilator 40 04/03/17 13:20 73 14 40 04/03/17 12:00 40 04/03/17 12:00 69 04/03/17 12:00 97.7 77 16 121/55 100 Mechanical Ventilator 40 04/03/17 11:18 73 14 40 Height (Feet): 5 Height (Inches): 10.00 Weight (Pounds): 170 General Appearance: no acute distress HEENT: status post trach Respiratory/Chest: other - on ventilator, coarse sounds Cardiovascular: normal rate Abdomen: soft, non tender, other - GT Extremities: no edema Neurologic/Psychiatric: unresponsiveness Microbiology Date/Time Source Procedure Growth Status 04/01/17 11:29 Blood Blood Culture - Preliminary NO GROWTH AFTER 48 HOURS Resulted 04/01/17 11:29 Blood Blood Culture - Preliminary NO GROWTH AFTER 48 HOURS Resulted 04/02/17 15:20 Urine,Cystoscopy Urine Culture - Preliminary NO GROWTH AFTER 24 HOURS Resulted Laboratory Tests Test 04/04/17 03:20 White Blood Count 10.4 K/UL (4.8-10.8) Red Blood Count 3.36 M/UL (4.70-6.10) L Hemoglobin 8.4 G/DL (14.2-18.0) L Hematocrit 27.6 % (42.0-52.0) L Mean Corpuscular Volume 82 FL (80-99) Mean Corpuscular Hemoglobin 24.9 PG (27.0-31.0) L Mean Corpuscular Hemoglobin Concent 30.4 G/DL (32.0-36.0) L Red Cell Distribution Width 14.9 % (11.6-14.8) H Platelet Count 355 K/UL (150-450) Mean Platelet Volume 7.4 FL (6.5-10.1) Neutrophils (%) (Auto) 58.3 % (45.0-75.0) Lymphocytes (%) (Auto) 18.0 % (20.0-45.0) L Monocytes (%) (Auto) 10.7 % (1.0-10.0) H Eosinophils (%) (Auto) 12.4 % (0.0-3.0) H Basophils (%) (Auto) 0.5 % (0.0-2.0) Sodium Level 140 mEQ/L (135-145) Potassium Level 3.5 mEQ/L (3.4-4.9) Chloride Level 103 mEQ/L (98-107) Carbon Dioxide Level 24 mEQ/L (20-30) Anion Gap 13 (5-15) Blood Urea Nitrogen 18 mg/dL (7-23) Creatinine 1.0 mg/dL (0.7-1.2) Estimat Glomerular Filtration Rate > 60 mL/min (>60) Glucose Level 127 mg/dL (74-106) H Calcium Level 8.8 mg/dL (8.6-10.2) Current Medications Medications (Trade) Dose Ordered Sig/Wanda Route PRN Reason Start Time Stop Time Status Last Admin Dose Admin Acetaminophen (Tylenol) 650 mg Q4H PRN ORAL T>100.5 04/01/17 10:00 05/01/17 09:59 Al Hydroxide/Mg Hydroxide (Mylanta II) 30 ml Q6H PRN ORAL dyspepsia 04/01/17 10:00 05/01/17 09:59 Albuterol/ Ipratropium (DuoNeb 0.5-3(2.5)mg/3ml) 3 ml Q8HRT HHN 04/01/17 15:00 04/06/17 14:59 04/04/17 07:12 Dextrose (Dextrose 50%) STAT PRN IV Hypoglycemia 04/01/17 10:00 05/01/17 09:59 Diphenhydramine HCl (Benadryl) 25 mg Q6H PRN ORAL Itching/Pruritis 04/01/17 10:00 05/01/17 09:59 Levothyroxine Sodium (Synthroid) 50 mcg DAILY GT 04/02/17 09:00 05/02/17 08:59 04/04/17 08:32 Morphine Sulfate (Morphine Sulfate) 2 mg Q4H PRN IVP Severe Pain (Pain Scale 7-10) 04/01/17 10:00 04/08/17 09:59 Nitroglycerin (Ntg) 0.4 mg Q5M X 3 DOSES PRN SL Prn Chest Pain 04/01/17 10:00 05/01/17 09:59 Ondansetron HCl (Zofran) 4 mg Q6H PRN IVP Nausea & Vomiting 04/01/17 10:00 05/01/17 09:59 Pantoprazole 40 mg 40 mg EVERY 12 HOURS IVP 04/02/17 21:00 05/02/17 20:59 04/04/17 08:33 Piperacillin Sod/ Tazobactam Sod/ Dextrose (Zosyn/D5W) 110 ml @ 27.5 mls/hr EVERY 8 HOURS IVPB 04/02/17 14:00 04/07/17 13:59 04/04/17 05:46 Polyethylene Glycol (Miralax) 17 gm HSPRN PRN ORAL Constipation 04/01/17 21:00 05/01/17 20:59 Sucralfate (Carafate) 1 gm FOUR TIMES A DAY GT 04/01/17 13:00 05/01/17 12:59 04/04/17 08:32 SHANNA BERRY Apr 04, 2017 09:30
[2017-04-04 12:00] VITALS: BP 122/75
--- NOTE | 2017-04-04 12:19 | GI Progress Note ---
Assessment/Plan Problems: (1) [facility] resident ICD Codes: Z59.3 - Problems related to living in residential institution SNOMED: 969307573 (2) Psychosis ICD Codes: F29 - Psychosis SNOMED: 67412471 (3) Dementia ICD Codes: F03.90 - Dementia SNOMED: 03673664 (4) Alzheimer's dementia ICD Codes: G30.9 - Alzheimer's disease, unspecified SNOMED: 91625855 (5) Anemia ICD Codes: D64.9 - Anemia, unspecified SNOMED: 894156994 (6) Iron deficiency ICD Codes: E61.1 - Iron deficiency SNOMED: 85790013 (7) Feeding by G-tube ICD Codes: Z93.1 - Gastrostomy status SNOMED: 368286532, 951912927 (8) Protein-calorie malnutrition, severe ICD Codes: E43 - Unspecified severe protein-calorie malnutrition SNOMED: 530068666 (9) Esophagitis ICD Codes: K20.9 - Esophagitis SNOMED: 37549779 Status: stable Status Narrative Discussed with Dr. Wilson. Assessment/Plan OB stool positive defer GI procedures given known severe esophagitis via EGD last year. stable H&H PPI BID + carafate prn blood transfusion reflux measure and aspiration precautions GTFs per dietary abx fu labs Subjective Subjective limited Objective Last 24 Hour Vital Signs Date Time Temp Pulse Resp B/P Pulse Ox O2 Delivery O2 Flow Rate FiO2 04/04/17 12:00 97.5 72 18 122/75 100 Mechanical Ventilator 40 04/04/17 11:26 91 26 40 04/04/17 09:10 70 16 40 04/04/17 08:00 81 04/04/17 08:00 40 04/04/17 08:00 97.9 81 18 112/59 100 Mechanical Ventilator 40 04/04/17 07:30 82 15 100 Mechanical Ventilator 50.0 40 04/04/17 07:17 40 04/04/17 07:17 79 14 40 04/04/17 07:15 79 16 100 Mechanical Ventilator 40 04/04/17 05:08 82 17 40 04/04/17 04:38 40 04/04/17 04:00 97.4 78 17 112/66 100 Mechanical Ventilator 40 04/04/17 04:00 77 04/04/17 03:08 79 14 40 04/04/17 01:06 90 17 40 04/04/17 01:00 40 04/04/17 00:00 40 04/04/17 00:00 89 04/03/17 23:51 98.8 87 17 108/62 100 Mechanical Ventilator 40 04/03/17 23:03 76 15 100 Mechanical Ventilator 40 04/03/17 23:02 79 14 100 Mechanical Ventilator 40 04/03/17 23:01 77 14 40 04/03/17 21:28 84 15 40 04/03/17 20:00 97.7 78 18 112/57 100 Mechanical Ventilator 40 04/03/17 20:00 40 04/03/17 19:30 79 04/03/17 19:15 77 14 40 04/03/17 17:06 87 16 40 04/03/17 16:00 93 04/03/17 16:00 40 04/03/17 16:00 97.3 85 18 128/57 100 Mechanical Ventilator 40 04/03/17 15:03 81 15 40 04/03/17 15:02 81 15 100 Mechanical Ventilator 40 04/03/17 14:50 89 15 100 Mechanical Ventilator 40 04/03/17 13:20 73 14 40 Intake and Output 04/03/17 04/04/17 19:00 07:00 Intake Total 1087.5 ml 842.5 ml Output Total 400 ml 300 ml Balance 687.5 ml 542.5 ml Free Water 150 ml 100 ml IV Total 492.5 ml 137.5 ml Tube Feeding 445 ml 605 ml Output Urine Total 400 ml 300 ml # Bowel Movements 2 1 Laboratory Tests Test 04/04/17 03:20 White Blood Count 10.4 K/UL (4.8-10.8) Red Blood Count 3.36 M/UL (4.70-6.10) L Hemoglobin 8.4 G/DL (14.2-18.0) L Hematocrit 27.6 % (42.0-52.0) L Mean Corpuscular Volume 82 FL (80-99) Mean Corpuscular Hemoglobin 24.9 PG (27.0-31.0) L Mean Corpuscular Hemoglobin Concent 30.4 G/DL (32.0-36.0) L Red Cell Distribution Width 14.9 % (11.6-14.8) H Platelet Count 355 K/UL (150-450) Mean Platelet Volume 7.4 FL (6.5-10.1) Neutrophils (%) (Auto) 58.3 % (45.0-75.0) Lymphocytes (%) (Auto) 18.0 % (20.0-45.0) L Monocytes (%) (Auto) 10.7 % (1.0-10.0) H Eosinophils (%) (Auto) 12.4 % (0.0-3.0) H Basophils (%) (Auto) 0.5 % (0.0-2.0) Sodium Level 140 mEQ/L (135-145) Potassium Level 3.5 mEQ/L (3.4-4.9) Chloride Level 103 mEQ/L (98-107) Carbon Dioxide Level 24 mEQ/L (20-30) Anion Gap 13 (5-15) Blood Urea Nitrogen 18 mg/dL (7-23) Creatinine 1.0 mg/dL (0.7-1.2) Estimat Glomerular Filtration Rate > 60 mL/min (>60) Glucose Level 127 mg/dL (74-106) H Calcium Level 8.8 mg/dL (8.6-10.2) Height (Feet): 5 Height (Inches): 10.00 Weight (Pounds): 170 General Appearance: no apparent distress, alert Cardiovascular: normal rate Respiratory/Chest: other - [facility] vent Abdominal Exam: GT site - c/d/i Arabella Quesada N.P. Apr 04, 2017 12:19
--- NOTE | 2017-04-04 12:22 | Pulmonology Progress Note ---
Assessment/Plan Problems: (1) Sepsis (2) Upper GI bleed (3) Respiratory failure, [id number] (4) Protein-calorie malnutrition, severe (5) Feeding by G-tube Respiratory: monitor respiratory rate Cardiac: continue pressors Renal: F/U I&O, keep IV fluid Infectious Disease: check cultures Gastrointestinal: continue feedings/current rate Endocrine: monitor blood sugar, check TSH, continue sliding scale insulin Hematologic: monitor H/H, transfuse if hgb<8.5 Neurologic: PRN Ativan, PRN Morphine, keep patient comfortable Prophylaxis: Protonix Disposition: keep in ICU Notes Reviewed: cardio, 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 with: nurses, consultants, skilled nursing case manager Subjective ROS Limited/Unobtainable: No Constitutional: Reports: no symptoms Respiratory: Reports: no symptoms Allergies: Coded Allergies: NO KNOWN DRUG ALLERGIES (Verified Allergy, Unknown, 09/11/16) Objective Last 24 Hour Vital Signs Date Time Temp Pulse Resp B/P Pulse Ox O2 Delivery O2 Flow Rate FiO2 04/04/17 12:00 97.5 72 18 122/75 100 Mechanical Ventilator 40 04/04/17 11:26 91 26 40 04/04/17 09:10 70 16 40 04/04/17 08:00 81 04/04/17 08:00 40 04/04/17 08:00 97.9 81 18 112/59 100 Mechanical Ventilator 40 04/04/17 07:30 82 15 100 Mechanical Ventilator 50.0 40 04/04/17 07:17 40 04/04/17 07:17 79 14 40 04/04/17 07:15 79 16 100 Mechanical Ventilator 40 04/04/17 05:08 82 17 40 04/04/17 04:38 40 04/04/17 04:00 97.4 78 17 112/66 100 Mechanical Ventilator 40 04/04/17 04:00 77 04/04/17 03:08 79 14 40 04/04/17 01:06 90 17 40 04/04/17 01:00 40 04/04/17 00:00 40 04/04/17 00:00 89 04/03/17 23:51 98.8 87 17 108/62 100 Mechanical Ventilator 40 04/03/17 23:03 76 15 100 Mechanical Ventilator 40 04/03/17 23:02 79 14 100 Mechanical Ventilator 40 04/03/17 23:01 77 14 40 04/03/17 21:28 84 15 40 04/03/17 20:00 97.7 78 18 112/57 100 Mechanical Ventilator 40 04/03/17 20:00 40 04/03/17 19:30 79 04/03/17 19:15 77 14 40 04/03/17 17:06 87 16 40 04/03/17 16:00 93 04/03/17 16:00 40 04/03/17 16:00 97.3 85 18 128/57 100 Mechanical Ventilator 40 04/03/17 15:03 81 15 40 04/03/17 15:02 81 15 100 Mechanical Ventilator 40 04/03/17 14:50 89 15 100 Mechanical Ventilator 40 04/03/17 13:20 73 14 40 Intake and Output 04/03/17 04/04/17 19:00 07:00 Intake Total 1087.5 ml 842.5 ml Output Total 400 ml 300 ml Balance 687.5 ml 542.5 ml Free Water 150 ml 100 ml IV Total 492.5 ml 137.5 ml Tube Feeding 445 ml 605 ml Output Urine Total 400 ml 300 ml # Bowel Movements 2 1 General Appearance: cachetic HEENT: normocephalic, atraumatic Respiratory/Chest: chest wall non-tender, lungs clear Cardiovascular: normal peripheral pulses, normal rate Abdomen: normal bowel sounds, soft, non tender Extremities: no cyanosis Skin: no rash Neurologic/Psychiatric: tip bander II-XII grossly normal Microbiology Date/Time Source Procedure Growth Status 04/02/17 15:20 Urine,Cystoscopy Urine Culture - Preliminary NO GROWTH AFTER 24 HOURS Resulted Laboratory Tests 04/04/17 03:20: White Blood Count 10.4, Red Blood Count 3.36L, Hemoglobin 8.4L, Hematocrit 27.6L , Mean Corpuscular Volume 82, Mean Corpuscular Hemoglobin 24.9L, Mean Corpuscular Hemoglobin Concent 30.4L, Red Cell Distribution Width 14.9H, Platelet Count 355, Mean Platelet Volume 7.4, Neutrophils (%) (Auto) 58.3, Lymphocytes (%) (Auto) 18.0L, Monocytes (%) (Auto) 10.7H, Eosinophils (%) (Auto ) 12.4H, Basophils (%) (Auto) 0.5, Sodium Level 140, Potassium Level 3.5, Chloride Level 103, Carbon Dioxide Level 24, Anion Gap 13, Blood Urea Nitrogen 18, Creatinine 1.0, Estimat Glomerular Filtration Rate > 60, Glucose Level 127H , Calcium Level 8.8 Current Medications Medications (Trade) Dose Ordered Sig/Wanda Route PRN Reason Start Time Stop Time Status Last Admin Dose Admin Acetaminophen (Tylenol) 650 mg Q4H PRN ORAL T>100.5 04/01/17 10:00 05/01/17 09:59 Al Hydroxide/Mg Hydroxide (Mylanta II) 30 ml Q6H PRN ORAL dyspepsia 04/01/17 10:00 05/01/17 09:59 Albuterol/ Ipratropium (DuoNeb 0.5-3(2.5)mg/3ml) 3 ml Q8HRT HHN 04/01/17 15:00 04/06/17 14:59 04/04/17 07:12 Dextrose (Dextrose 50%) STAT PRN IV Hypoglycemia 04/01/17 10:00 05/01/17 09:59 Diphenhydramine HCl (Benadryl) 25 mg Q6H PRN ORAL Itching/Pruritis 04/01/17 10:00 05/01/17 09:59 Levothyroxine Sodium (Synthroid) 50 mcg DAILY GT 04/02/17 09:00 05/02/17 08:59 04/04/17 08:32 Morphine Sulfate (Morphine Sulfate) 2 mg Q4H PRN IVP Severe Pain (Pain Scale 7-10) 04/01/17 10:00 04/08/17 09:59 Nitroglycerin (Ntg) 0.4 mg Q5M X 3 DOSES PRN SL Prn Chest Pain 04/01/17 10:00 05/01/17 09:59 Ondansetron HCl (Zofran) 4 mg Q6H PRN IVP Nausea & Vomiting 04/01/17 10:00 05/01/17 09:59 Pantoprazole 40 mg 40 mg EVERY 12 HOURS IVP 04/02/17 21:00 05/02/17 20:59 04/04/17 08:33 Piperacillin Sod/ Tazobactam Sod/ Dextrose (Zosyn/D5W) 110 ml @ 27.5 mls/hr EVERY 8 HOURS IVPB 04/02/17 14:00 04/07/17 13:59 04/04/17 05:46 Polyethylene Glycol (Miralax) 17 gm HSPRN PRN ORAL Constipation 04/01/17 21:00 05/01/17 20:59 Sucralfate (Carafate) 1 gm FOUR TIMES A DAY GT 04/01/17 13:00 05/01/17 12:59 04/04/17 08:32 MIKAYLA WILLOUGHBY Apr 04, 2017 12:22
[2017-04-04 16:00] VITALS: BP 115/57
[2017-04-04 20:37] VITALS: BP 108/72
[2017-04-05] VITALS: BP 114/65
[2017-04-05 04:00] VITALS: BP 124/64
[2017-04-05] MEDS: Piperacillin/Tazobactam 3.375 GM in D5W 110 ML IVPB SCH ×3 (06:00→22:00)
[2017-04-05 06:17] LABS: ANION GAP 13 (5-15); CALCIUM 9.1 mg/dL (8.6-10.2); CARBON DIOXIDE 25 mEQ/L (20-30); CHLORIDE 102 mEQ/L (98-107); CREATININE 0.9 mg/dL (0.7-1.2); GLOMERULAR FILTRATION RATE > 60 mL/min (>60); HEMOLYSIS 44; POTASSIUM 3.8 mEQ/L (3.4-4.9); SODIUM 140 mEQ/L (135-145)
[2017-04-05 06:18] LABS: MEAN CORPUSCULAR HGB CONC 31.3 G/DL (32.0-36.0); MEAN CORPUSCULAR VOLUME 83 FL (80-99); MEAN PLATELET VOLUME 7.3 FL (6.5-10.1); PLATELET COUNT 337 K/UL (150-450); RED BLOOD COUNT 3.48 M/UL (4.70-6.10); RED CELL DISTRIBUTION WIDTH 15.2 % (11.6-14.8)
[2017-04-05 06:20] LABS: WHITE BLOOD COUNT 23.9 K/UL (4.8-10.8)
[2017-04-05] MEDS: DuoNeb 0.5-3(2.5)mg/3ml neb HHN SCH ×3 (06:46→22:50)
[2017-04-05 08:30] VITALS: BP 105/52
[2017-04-05] MEDS: Sucralfate 1gm tab GT SCH ×4 (08:57→20:42)
[2017-04-05 09:05] LABS: EOSINOPHILS % (MANUAL) 7 % (0-3); LYMPHOCYTES % (MANUAL) 7 % (20-45); NEUTROPHILS % (MANUAL) 84 % (45-75); TOTAL CELLS COUNTED 100
[2017-04-05] MEDS: Pantoprazole Inj IVP SCH ×2 (09:05→20:42)
[2017-04-05 09:06] LABS: ANISOCYTOSIS 1+; BAND NEUTROPHILS % (MANUAL) 0 % (0-8); BASOPHILS % (MANUAL) 0 % (0-2); HYPOCHROMASIA 1+; PLATELET ESTIMATE ADEQUATE; PLATELET MORPHOLOGY NORMAL
[2017-04-05 10:05] LABS: MEAN CORPUSCULAR HEMOGLOBIN 25.7 PG (27.0-31.0); MEAN CORPUSCULAR VOLUME 83 FL (80-99); MEAN PLATELET VOLUME 7.2 FL (6.5-10.1); PLATELET COUNT 356 K/UL (150-450); RED BLOOD COUNT 3.58 M/UL (4.70-6.10); RED CELL DISTRIBUTION WIDTH 14.8 % (11.6-14.8)
[2017-04-05 10:08] LABS: WHITE BLOOD COUNT 26.1 K/UL (4.8-10.8)
[2017-04-05 10:55] LABS: BAND NEUTROPHILS % (MANUAL) 2 % (0-8); BASOPHILS % (MANUAL) 0 % (0-2); EOSINOPHILS % (MANUAL) 1 % (0-3); HYPOCHROMASIA 1+; LYMPHOCYTES % (MANUAL) 7 % (20-45); NEUTROPHILS % (MANUAL) 83 % (45-75); PLATELET ESTIMATE ADEQUATE; PLATELET MORPHOLOGY NORMAL; TOTAL CELLS COUNTED 100
--- NOTE | 2017-04-05 11:51 | GI Progress Note ---
Assessment/Plan Problems: (1) [facility] ICD Codes: Z59.3 - Problems related to living in residential institution SNOMED: 607728882 (2) Psychosis ICD Codes: F29 - Psychosis SNOMED: 61246817 (3) Dementia ICD Codes: F03.90 - Dementia SNOMED: 50002242 (4) Alzheimer's dementia ICD Codes: G30.9 - Alzheimer's disease, unspecified SNOMED: 07710370 (5) Anemia ICD Codes: D64.9 - Anemia, unspecified SNOMED: 348313085 (6) Iron deficiency ICD Codes: E61.1 - Iron deficiency SNOMED: 29736982 (7) Feeding by G-tube ICD Codes: Z93.1 - Gastrostomy status SNOMED: 708377214, 094330254 (8) Protein-calorie malnutrition, severe ICD Codes: E43 - Unspecified severe protein-calorie malnutrition SNOMED: 599131578 (9) Esophagitis ICD Codes: K20.9 - Esophagitis SNOMED: 51227499 Status: unchanged Status Narrative Discussed with Dr. Wilson. Assessment/Plan OB stool positive defer GI procedures given known severe esophagitis via EGD last year. add reglan ATC due to emesis today stable H&H PPI BID + carafate prn blood transfusion reflux measure and aspiration precautions GTFs per dietary abx fu labs Subjective Subjective limited Objective Last 24 Hour Vital Signs Date Time Temp Pulse Resp B/P Pulse Ox O2 Delivery O2 Flow Rate FiO2 04/05/17 10:44 103 16 40 04/05/17 09:06 108 17 40 04/05/17 08:30 99.0 100 24 105/52 98 Mechanical Ventilator 40 04/05/17 08:00 40 04/05/17 08:00 115 04/05/17 06:40 105 17 100 Mechanical Ventilator 40 04/05/17 06:40 105 17 40 04/05/17 06:30 104 17 100 Mechanical Ventilator 40 04/05/17 05:20 113 21 40 04/05/17 04:00 103 04/05/17 04:00 99.2 99 20 124/64 100 Mechanical Ventilator 40 04/05/17 04:00 40 04/05/17 03:25 98 21 40 04/05/17 01:15 91 23 40 04/05/17 00:00 87 04/05/17 00:00 97.9 85 15 114/65 100 Mechanical Ventilator 40 04/05/17 00:00 40 04/04/17 23:04 81 16 100 Mechanical Ventilator 40 04/04/17 22:55 79 15 100 Mechanical Ventilator 40 04/04/17 22:55 79 15 40 04/04/17 20:56 80 15 40 04/04/17 20:37 97.7 76 14 108/72 100 Mechanical Ventilator 40 04/04/17 20:00 40 04/04/17 20:00 78 04/04/17 18:57 75 18 40 04/04/17 17:02 80 16 40 04/04/17 16:00 97.7 87 18 115/57 100 Mechanical Ventilator 40 04/04/17 16:00 40 04/04/17 16:00 80 04/04/17 15:28 84 19 40 04/04/17 15:27 84 19 100 Mechanical Ventilator 40 04/04/17 15:10 84 19 100 Mechanical Ventilator 40 04/04/17 13:29 88 26 40 04/04/17 12:00 83 04/04/17 12:00 97.5 72 18 122/75 100 Mechanical Ventilator 40 04/04/17 12:00 40 Intake and Output 04/04/17 04/05/17 19:00 07:00 Intake Total 865.0 ml 897.5 ml Output Total 600 ml 525 ml Balance 265.0 ml 372.5 ml Free Water 150 ml 50 ml IV Total 165.0 ml 137.5 ml Tube Feeding 550 ml 660 ml Other 50 ml Output Urine Total 600 ml 525 ml # Bowel Movements 1 2 Laboratory Tests Test 04/05/17 04:10 04/05/17 09:35 White Blood Count 23.9 K/UL (4.8-10.8) #*H 26.1 K/UL (4.8-10.8) *H Red Blood Count 3.48 M/UL (4.70-6.10) L 3.58 M/UL (4.70-6.10) L Hemoglobin 9.0 G/DL (14.2-18.0) L 9.2 G/DL (14.2-18.0) L Hematocrit 28.8 % (42.0-52.0) L 29.7 % (42.0-52.0) L Mean Corpuscular Volume 83 FL (80-99) 83 FL (80-99) Mean Corpuscular Hemoglobin 26.0 PG (27.0-31.0) L 25.7 PG (27.0-31.0) L Mean Corpuscular Hemoglobin Concent 31.3 G/DL (32.0-36.0) L 31.0 G/DL (32.0-36.0) L Red Cell Distribution Width 15.2 % (11.6-14.8) H 14.8 % (11.6-14.8) Platelet Count 337 K/UL (150-450) 356 K/UL (150-450) Mean Platelet Volume 7.3 FL (6.5-10.1) 7.2 FL (6.5-10.1) Neutrophils (%) (Auto) % (45.0-75.0) % (45.0-75.0) Lymphocytes (%) (Auto) % (20.0-45.0) % (20.0-45.0) Monocytes (%) (Auto) % (1.0-10.0) % (1.0-10.0) Eosinophils (%) (Auto) % (0.0-3.0) % (0.0-3.0) Basophils (%) (Auto) % (0.0-2.0) % (0.0-2.0) Differential Total Cells Counted 100 100 Neutrophils % (Manual) 84 % (45-75) H 83 % (45-75) H Lymphocytes % (Manual) 7 % (20-45) L 7 % (20-45) L Monocytes % (Manual) 2 % (1-10) 7 % (1-10) Eosinophils % (Manual) 7 % (0-3) H 1 % (0-3) Basophils % (Manual) 0 % (0-2) 0 % (0-2) Band Neutrophils 0 % (0-8) 2 % (0-8) Platelet Estimate Adequate Adequate Platelet Morphology Normal Normal Hypochromasia 1+ 1+ Anisocytosis 1+ Sodium Level 140 mEQ/L (135-145) Potassium Level 3.8 mEQ/L (3.4-4.9) Chloride Level 102 mEQ/L (98-107) Carbon Dioxide Level 25 mEQ/L (20-30) Anion Gap 13 (5-15) Blood Urea Nitrogen 16 mg/dL (7-23) Creatinine 0.9 mg/dL (0.7-1.2) Estimat Glomerular Filtration Rate > 60 mL/min (>60) Glucose Level 100 mg/dL (74-106) Calcium Level 9.1 mg/dL (8.6-10.2) Height (Feet): 5 Height (Inches): 10.00 Weight (Pounds): 170 General Appearance: no apparent distress Cardiovascular: normal rate Respiratory/Chest: other - [facility] vent Abdominal Exam: site - c/d/i Arabella Quesada N.P. Apr 05, 2017 11:51
[2017-04-05 12:10] VITALS: BP 116/64
[2017-04-05] MEDS: Metoclopramide 10mg/2ml Inj IVP SCH ×2 (12:34→20:42)
--- NOTE | 2017-04-05 12:48 | Pulmonology Progress Note ---
Assessment/Plan Problems: (1) Sepsis (2) Upper GI bleed (3) Respiratory failure, [id number] (4) Protein-calorie malnutrition, severe (5) Feeding by G-tube Respiratory: monitor respiratory rate, adjust FIO2, CXR - in am Cardiac: continue to monitor HR/BP Renal: F/U I&O, keep IV fluid Infectious Disease: check cultures, continue antibiotics Gastrointestinal: continue feedings/current rate Endocrine: monitor blood sugar, check TSH, check HgA1C, continue sliding scale insulin Hematologic: monitor H/H, transfuse if hgb<8.5 Neurologic: PRN Ativan, PRN Morphine, keep patient comfortable Affect: PRN ativan Prophylaxis: Heparin Notes Reviewed: county manager, cardio, 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 with: nurses, consultants, case reviewer Subjective ROS Limited/Unobtainable: No Constitutional: Reports: no symptoms HEENT: Repors: no symptoms Allergies: Coded Allergies: NO KNOWN DRUG ALLERGIES (Verified Allergy, Unknown, 09/11/16) Objective Last 24 Hour Vital Signs Date Time Temp Pulse Resp B/P Pulse Ox O2 Delivery O2 Flow Rate FiO2 04/05/17 12:10 98.6 95 22 116/64 99 Mechanical Ventilator 40 04/05/17 12:00 40 04/05/17 10:44 103 16 40 04/05/17 09:06 108 17 40 04/05/17 08:30 99.0 100 24 105/52 98 Mechanical Ventilator 40 04/05/17 08:00 40 04/05/17 08:00 115 04/05/17 06:40 105 17 100 Mechanical Ventilator 40 04/05/17 06:40 105 17 40 04/05/17 06:30 104 17 100 Mechanical Ventilator 40 04/05/17 05:20 113 21 40 04/05/17 04:00 103 04/05/17 04:00 99.2 99 20 124/64 100 Mechanical Ventilator 40 04/05/17 04:00 40 04/05/17 03:25 98 21 40 04/05/17 01:15 91 23 40 04/05/17 00:00 87 04/05/17 00:00 97.9 85 15 114/65 100 Mechanical Ventilator 40 04/05/17 00:00 40 04/04/17 23:04 81 16 100 Mechanical Ventilator 40 04/04/17 22:55 79 15 100 Mechanical Ventilator 40 04/04/17 22:55 79 15 40 04/04/17 20:56 80 15 40 04/04/17 20:37 97.7 76 14 108/72 100 Mechanical Ventilator 40 04/04/17 20:00 40 04/04/17 20:00 78 04/04/17 18:57 75 18 40 04/04/17 17:02 80 16 40 04/04/17 16:00 97.7 87 18 115/57 100 Mechanical Ventilator 40 04/04/17 16:00 40 04/04/17 16:00 80 04/04/17 15:28 84 19 40 04/04/17 15:27 84 19 100 Mechanical Ventilator 40 04/04/17 15:10 84 19 100 Mechanical Ventilator 40 04/04/17 13:29 88 26 40 Intake and Output 04/04/17 04/05/17 19:00 07:00 Intake Total 865.0 ml 897.5 ml Output Total 600 ml 525 ml Balance 265.0 ml 372.5 ml Free Water 150 ml 50 ml IV Total 165.0 ml 137.5 ml Tube Feeding 550 ml 660 ml Other 50 ml Output Urine Total 600 ml 525 ml # Bowel Movements 1 2 General Appearance: WD/WN HEENT: normocephalic, atraumatic, no JVD Respiratory/Chest: chest wall non-tender, lungs clear Cardiovascular: normal peripheral pulses, normal rate Abdomen: normal bowel sounds, soft, non tender, no organomegaly, no scars Extremities: no cyanosis Skin: no lesions Microbiology Date/Time Source Procedure Growth Status 04/02/17 15:20 Urine,Cystoscopy Urine Culture - Final NO GROWTH AFTER 48 HOURS Complete Laboratory Tests 04/05/17 04:10: White Blood Count 23.9#*H, Red Blood Count 3.48L, Hemoglobin 9.0L, Hematocrit 28.8L, Mean Corpuscular Volume 83, Mean Corpuscular Hemoglobin 26.0L, Mean Corpuscular Hemoglobin Concent 31.3L, Red Cell Distribution Width 15.2H, Platelet Count 337, Mean Platelet Volume 7.3, Neutrophils (%) (Auto) , Lymphocytes (%) (Auto) , Monocytes (%) (Auto) , Eosinophils (%) (Auto) , Basophils (%) (Auto) , Differential Total Cells Counted 100, Neutrophils % ( Manual) 84H, Lymphocytes % (Manual) 7L, Monocytes % (Manual) 2, Eosinophils % ( Manual) 7H, Basophils % (Manual) 0, Band Neutrophils 0, Platelet Estimate Adequate, Platelet Morphology Normal, Hypochromasia 1+, Anisocytosis 1+, Sodium Level 140, Potassium Level 3.8, Chloride Level 102, Carbon Dioxide Level 25, Anion Gap 13, Blood Urea Nitrogen 16, Creatinine 0.9, Estimat Glomerular Filtration Rate > 60, Glucose Level 100, Calcium Level 9.1 04/05/17 09:35: White Blood Count 26.1*H, Red Blood Count 3.58L, Hemoglobin 9.2L, Hematocrit 29.7L, Mean Corpuscular Volume 83, Mean Corpuscular Hemoglobin 25.7L, Mean Corpuscular Hemoglobin Concent 31.0L, Red Cell Distribution Width 14.8, Platelet Count 356, Mean Platelet Volume 7.2, Neutrophils (%) (Auto) , Lymphocytes (%) (Auto) , Monocytes (%) (Auto) , Eosinophils (%) (Auto) , Basophils (%) (Auto) , Differential Total Cells Counted 100, Neutrophils % ( Manual) 83H, Lymphocytes % (Manual) 7L, Monocytes % (Manual) 7, Eosinophils % ( Manual) 1, Basophils % (Manual) 0, Band Neutrophils 2, Platelet Estimate Adequate, Platelet Morphology Normal, Hypochromasia 1+ Current Medications Medications (Trade) Dose Ordered Sig/Wanda Route PRN Reason Start Time Stop Time Status Last Admin Dose Admin Acetaminophen (Tylenol) 650 mg Q4H PRN ORAL T>100.5 04/01/17 10:00 05/01/17 09:59 Al Hydroxide/Mg Hydroxide (Mylanta II) 30 ml Q6H PRN ORAL dyspepsia 04/01/17 10:00 05/01/17 09:59 Albuterol/ Ipratropium (DuoNeb 0.5-3(2.5)mg/3ml) 3 ml Q8HRT HHN 04/01/17 15:00 04/06/17 14:59 04/05/17 06:46 Dextrose (Dextrose 50%) STAT PRN IV Hypoglycemia 04/01/17 10:00 05/01/17 09:59 Diphenhydramine HCl (Benadryl) 25 mg Q6H PRN ORAL Itching/Pruritis 04/01/17 10:00 05/01/17 09:59 Levothyroxine Sodium (Synthroid) 50 mcg DAILY GT 04/02/17 09:00 05/02/17 08:59 04/05/17 09:05 Metoclopramide HCl (Reglan) 10 mg Q8H IVP 04/05/17 12:00 05/05/17 11:59 04/05/17 12:34 Morphine Sulfate (Morphine Sulfate) 2 mg Q4H PRN IVP Severe Pain (Pain Scale 7-10) 04/01/17 10:00 04/08/17 09:59 Nitroglycerin (Ntg) 0.4 mg Q5M X 3 DOSES PRN SL Prn Chest Pain 04/01/17 10:00 05/01/17 09:59 Ondansetron HCl (Zofran) 4 mg Q6H PRN IVP Nausea & Vomiting 04/01/17 10:00 05/01/17 09:59 Pantoprazole 40 mg 40 mg EVERY 12 HOURS IVP 04/02/17 21:00 05/02/17 20:59 04/05/17 09:05 Piperacillin Sod/ Tazobactam Sod/ Dextrose (Zosyn/D5W) 110 ml @ 27.5 mls/hr EVERY 8 HOURS IVPB 04/02/17 14:00 04/07/17 13:59 04/05/17 06:00 Polyethylene Glycol (Miralax) 17 gm HSPRN PRN ORAL Constipation 04/01/17 21:00 05/01/17 20:59 Sucralfate (Carafate) 1 gm FOUR TIMES A DAY GT 04/01/17 13:00 05/01/17 12:59 04/05/17 12:34 MIKAYLA WILLOUGHBY Apr 05, 2017 12:48
--- NOTE | 2017-04-05 12:56 | Infectious Diseases Prog Note ---
Assessment/Plan Assessment/Plan ASSESSMENT: 66 y/o male with: // Possible recurrent aspiration PNA / HCAP - CXR 04/01: Tracheostomy. Atelectasis in left midlung and left lower lung. No other change from previous study. 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, multiple revisions, replacements // Chronic encephalopathy / Dementia // NH resident // Functional quadriplegia / bedbound // Frequent hospital re-admissions // MDRO colonized ( MRSA, VRE, KPC, MDR-ACB ) // NKDA // Full Code PLAN: - continue empiric zosyn d# 4 - f/u final cultures - monitor CBC, temperatures - monitor BMP - monitor CXR - vent support, trach care, aspiration precautions Subjective Allergies: Coded Allergies: NO KNOWN DRUG ALLERGIES (Verified Allergy, Unknown, 09/11/16) Subjective remains afebrile Objective Vital Signs Last 24 Hour Vital Signs Date Time Temp Pulse Resp B/P Pulse Ox O2 Delivery O2 Flow Rate FiO2 04/05/17 12:10 98.6 95 22 116/64 99 Mechanical Ventilator 40 04/05/17 12:00 40 04/05/17 10:44 103 16 40 04/05/17 09:06 108 17 40 04/05/17 08:30 99.0 100 24 105/52 98 Mechanical Ventilator 40 04/05/17 08:00 40 04/05/17 08:00 115 04/05/17 06:40 105 17 100 Mechanical Ventilator 40 04/05/17 06:40 105 17 40 04/05/17 06:30 104 17 100 Mechanical Ventilator 40 04/05/17 05:20 113 21 40 04/05/17 04:00 103 04/05/17 04:00 99.2 99 20 124/64 100 Mechanical Ventilator 40 04/05/17 04:00 40 04/05/17 03:25 98 21 40 04/05/17 01:15 91 23 40 04/05/17 00:00 87 04/05/17 00:00 97.9 85 15 114/65 100 Mechanical Ventilator 40 04/05/17 00:00 40 04/04/17 23:04 81 16 100 Mechanical Ventilator 40 04/04/17 22:55 79 15 100 Mechanical Ventilator 40 04/04/17 22:55 79 15 40 04/04/17 20:56 80 15 40 04/04/17 20:37 97.7 76 14 108/72 100 Mechanical Ventilator 40 04/04/17 20:00 40 04/04/17 20:00 78 04/04/17 18:57 75 18 40 04/04/17 17:02 80 16 40 04/04/17 16:00 97.7 87 18 115/57 100 Mechanical Ventilator 40 04/04/17 16:00 40 04/04/17 16:00 80 04/04/17 15:28 84 19 40 04/04/17 15:27 84 19 100 Mechanical Ventilator 40 04/04/17 15:10 84 19 100 Mechanical Ventilator 40 04/04/17 13:29 88 26 40 Height (Feet): 5 Height (Inches): 10.00 Weight (Pounds): 170 General Appearance: no acute distress HEENT: status post trach Respiratory/Chest: decreased breath sounds Cardiovascular: normal rate, regular rhythm Abdomen: normal bowel sounds, soft, non tender, non distended Microbiology Date/Time Source Procedure Growth Status 04/02/17 15:20 Urine,Cystoscopy Urine Culture - Final NO GROWTH AFTER 48 HOURS Complete Laboratory Tests Test 04/05/17 04:10 04/05/17 09:35 White Blood Count 23.9 K/UL (4.8-10.8) #*H 26.1 K/UL (4.8-10.8) *H Red Blood Count 3.48 M/UL (4.70-6.10) L 3.58 M/UL (4.70-6.10) L Hemoglobin 9.0 G/DL (14.2-18.0) L 9.2 G/DL (14.2-18.0) L Hematocrit 28.8 % (42.0-52.0) L 29.7 % (42.0-52.0) L Mean Corpuscular Volume 83 FL (80-99) 83 FL (80-99) Mean Corpuscular Hemoglobin 26.0 PG (27.0-31.0) L 25.7 PG (27.0-31.0) L Mean Corpuscular Hemoglobin Concent 31.3 G/DL (32.0-36.0) L 31.0 G/DL (32.0-36.0) L Red Cell Distribution Width 15.2 % (11.6-14.8) H 14.8 % (11.6-14.8) Platelet Count 337 K/UL (150-450) 356 K/UL (150-450) Mean Platelet Volume 7.3 FL (6.5-10.1) 7.2 FL (6.5-10.1) Neutrophils (%) (Auto) % (45.0-75.0) % (45.0-75.0) Lymphocytes (%) (Auto) % (20.0-45.0) % (20.0-45.0) Monocytes (%) (Auto) % (1.0-10.0) % (1.0-10.0) Eosinophils (%) (Auto) % (0.0-3.0) % (0.0-3.0) Basophils (%) (Auto) % (0.0-2.0) % (0.0-2.0) Differential Total Cells Counted 100 100 Neutrophils % (Manual) 84 % (45-75) H 83 % (45-75) H Lymphocytes % (Manual) 7 % (20-45) L 7 % (20-45) L Monocytes % (Manual) 2 % (1-10) 7 % (1-10) Eosinophils % (Manual) 7 % (0-3) H 1 % (0-3) Basophils % (Manual) 0 % (0-2) 0 % (0-2) Band Neutrophils 0 % (0-8) 2 % (0-8) Platelet Estimate Adequate Adequate Platelet Morphology Normal Normal Hypochromasia 1+ 1+ Anisocytosis 1+ Sodium Level 140 mEQ/L (135-145) Potassium Level 3.8 mEQ/L (3.4-4.9) Chloride Level 102 mEQ/L (98-107) Carbon Dioxide Level 25 mEQ/L (20-30) Anion Gap 13 (5-15) Blood Urea Nitrogen 16 mg/dL (7-23) Creatinine 0.9 mg/dL (0.7-1.2) Estimat Glomerular Filtration Rate > 60 mL/min (>60) Glucose Level 100 mg/dL (74-106) Calcium Level 9.1 mg/dL (8.6-10.2) Current Medications Medications (Trade) Dose Ordered Sig/Wanda Route PRN Reason Start Time Stop Time Status Last Admin Dose Admin Acetaminophen (Tylenol) 650 mg Q4H PRN ORAL T>100.5 04/01/17 10:00 05/01/17 09:59 Al Hydroxide/Mg Hydroxide (Mylanta II) 30 ml Q6H PRN ORAL dyspepsia 04/01/17 10:00 05/01/17 09:59 Albuterol/ Ipratropium (DuoNeb 0.5-3(2.5)mg/3ml) 3 ml Q8HRT HHN 04/01/17 15:00 04/06/17 14:59 04/05/17 06:46 Dextrose (Dextrose 50%) STAT PRN IV Hypoglycemia 04/01/17 10:00 05/01/17 09:59 Diphenhydramine HCl (Benadryl) 25 mg Q6H PRN ORAL Itching/Pruritis 04/01/17 10:00 05/01/17 09:59 Levothyroxine Sodium (Synthroid) 50 mcg DAILY GT 04/02/17 09:00 05/02/17 08:59 04/05/17 09:05 Metoclopramide HCl (Reglan) 10 mg Q8H IVP 04/05/17 12:00 05/05/17 11:59 04/05/17 12:34 Morphine Sulfate (Morphine Sulfate) 2 mg Q4H PRN IVP Severe Pain (Pain Scale 7-10) 04/01/17 10:00 04/08/17 09:59 Nitroglycerin (Ntg) 0.4 mg Q5M X 3 DOSES PRN SL Prn Chest Pain 04/01/17 10:00 05/01/17 09:59 Ondansetron HCl (Zofran) 4 mg Q6H PRN IVP Nausea & Vomiting 04/01/17 10:00 05/01/17 09:59 Pantoprazole 40 mg 40 mg EVERY 12 HOURS IVP 04/02/17 21:00 05/02/17 20:59 04/05/17 09:05 Piperacillin Sod/ Tazobactam Sod/ Dextrose (Zosyn/D5W) 110 ml @ 27.5 mls/hr EVERY 8 HOURS IVPB 04/02/17 14:00 04/07/17 13:59 04/05/17 06:00 Polyethylene Glycol (Miralax) 17 gm HSPRN PRN ORAL Constipation 04/01/17 21:00 05/01/17 20:59 Sucralfate (Carafate) 1 gm FOUR TIMES A DAY GT 04/01/17 13:00 05/01/17 12:59 04/05/17 12:34 LUNA GOODMAN Apr 05, 2017 12:56
[2017-04-05 16:03] VITALS: BP 133/60
[2017-04-05 20:00] VITALS: BP 117/52
[2017-04-06] VITALS: BP 111/72
[2017-04-06 04:00] VITALS: BP 127/63
[2017-04-06] MEDS: Metoclopramide 10mg/2ml Inj IVP SCH ×2 (04:32→12:53)
[2017-04-06 05:50] LABS: ALANINE AMINOTRANSFERASE 9 U/L (3-41); ALBUMIN/GLOBULIN RATIO 0.8 (1.0-2.7); ANION GAP 10 (5-15); ASPARTATE AMINO TRANSFERASE 12 U/L (5-40); CARBON DIOXIDE 27 mEQ/L (20-30); CHLORIDE 103 mEQ/L (98-107); CREATININE 0.9 mg/dL (0.7-1.2); GLOMERULAR FILTRATION RATE > 60 mL/min (>60); HEMOLYSIS 0; POTASSIUM 3.5 mEQ/L (3.4-4.9); SODIUM 140 mEQ/L (135-145); TOTAL PROTEIN 6.9 g/dL (6.6-8.7)
[2017-04-06] MEDS: Piperacillin/Tazobactam 3.375 GM in D5W 110 ML IVPB SCH ×2 (06:00→13:31)
[2017-04-06 06:10] LABS: BASOPHILS % (AUTO) 0.7 % (0.0-2.0); EOSINOPHILS % (AUTO) 10.7 % (0.0-3.0); LYMPHOCYTES % (AUTO) 17.9 % (20.0-45.0); MEAN CORPUSCULAR HEMOGLOBIN 27.9 PG (27.0-31.0); MEAN CORPUSCULAR HGB CONC 33.3 G/DL (32.0-36.0); MEAN CORPUSCULAR VOLUME 84 FL (80-99); MEAN PLATELET VOLUME 7.1 FL (6.5-10.1); MONOCYTES % (AUTO) 8.8 % (1.0-10.0); NEUTROPHILS % (AUTO) 61.9 % (45.0-75.0); PLATELET COUNT 298 K/UL (150-450); RED BLOOD COUNT 3.01 M/UL (4.70-6.10); RED CELL DISTRIBUTION WIDTH 15.3 % (11.6-14.8); WHITE BLOOD COUNT 12.5 K/UL (4.8-10.8)
[2017-04-06] MEDS: DuoNeb 0.5-3(2.5)mg/3ml neb HHN SCH (07:47)
[2017-04-06 08:00] VITALS: BP 131/96
[2017-04-06] MEDS: Sucralfate 1gm tab GT SCH ×2 (08:25→13:31)
[2017-04-06] MEDS: Pantoprazole Inj IVP SCH (08:25)
--- NOTE | 2017-04-06 11:02 | GI Progress Note ---
Assessment/Plan Problems: (1) snf resident ICD Codes: Z59.3 - Problems related to living in residential institution SNOMED: 393908138 (2) Psychosis ICD Codes: F29 - Psychosis SNOMED: 40429081 (3) Dementia ICD Codes: F03.90 - Dementia SNOMED: 88007249 (4) Alzheimer's dementia ICD Codes: G30.9 - Alzheimer's disease, unspecified SNOMED: 68566845 (5) Anemia ICD Codes: D64.9 - Anemia, unspecified SNOMED: 297195562 (6) Iron deficiency ICD Codes: E61.1 - Iron deficiency SNOMED: 65430125 (7) Feeding by G-tube ICD Codes: Z93.1 - Gastrostomy status SNOMED: 697791763, 051283186 (8) Protein-calorie malnutrition, severe ICD Codes: E43 - Unspecified severe protein-calorie malnutrition SNOMED: 785799786 (9) Esophagitis ICD Codes: K20.9 - Esophagitis SNOMED: 89203766 Status: stable Status Narrative Discussed with Dr. Wilson. Assessment/Plan OB stool positive defer GI procedures given known severe esophagitis via EGD last year. reglan ATC stable H&H PPI BID + carafate prn blood transfusion reflux measure and aspiration precautions GTFs per dietary abx fu labs Subjective Subjective limited Objective Last 24 Hour Vital Signs Date Time Temp Pulse Resp B/P Pulse Ox O2 Delivery O2 Flow Rate FiO2 04/06/17 08:50 93 17 40 04/06/17 08:00 40 04/06/17 08:00 97.9 88 21 131/96 100 Mechanical Ventilator 40 04/06/17 07:43 82 17 100 Mechanical Ventilator 40 04/06/17 07:30 80 17 40 04/06/17 07:30 40 04/06/17 07:30 80 17 100 Mechanical Ventilator 40 04/06/17 07:25 88 04/06/17 05:15 82 16 40 04/06/17 04:00 98.1 89 18 127/63 100 Mechanical Ventilator 40 04/06/17 04:00 40 04/06/17 04:00 76 04/06/17 03:20 78 17 40 04/06/17 01:00 85 16 40 04/06/17 00:00 84 04/06/17 00:00 40 04/06/17 00:00 99.0 88 19 111/72 100 Mechanical Ventilator 40 04/05/17 22:58 73 14 100 Mechanical Ventilator 40 04/05/17 22:50 73 15 100 Mechanical Ventilator 40 04/05/17 22:50 73 15 40 04/05/17 21:24 70 14 40 04/05/17 20:00 40 04/05/17 20:00 72 04/05/17 20:00 98.5 72 14 117/52 100 Mechanical Ventilator 40 04/05/17 19:16 70 14 40 04/05/17 17:29 85 17 40 04/05/17 16:03 97.9 86 18 133/60 100 Mechanical Ventilator 04/05/17 16:00 90 04/05/17 16:00 40 04/05/17 14:40 80 15 40 04/05/17 14:40 80 15 100 Mechanical Ventilator 40 04/05/17 14:30 82 15 100 Mechanical Ventilator 40 04/05/17 13:00 89 17 40 04/05/17 12:47 102 04/05/17 12:10 98.6 95 22 116/64 99 Mechanical Ventilator 40 04/05/17 12:00 40 Intake and Output 04/05/17 04/06/17 19:00 07:00 Intake Total 555.0 ml 897.5 ml Output Total 300 ml 400 ml Balance 255.0 ml 497.5 ml Free Water 60 ml 50 ml IV Total 110.0 ml 137.5 ml Tube Feeding 385 ml 660 ml Other 50 ml Output Urine Total 300 ml 400 ml # Bowel Movements 3 2 Laboratory Tests Test 04/06/17 03:20 White Blood Count 12.5 K/UL (4.8-10.8) #H Red Blood Count 3.01 M/UL (4.70-6.10) L Hemoglobin 8.4 G/DL (14.2-18.0) L Hematocrit 25.2 % (42.0-52.0) L Mean Corpuscular Volume 84 FL (80-99) Mean Corpuscular Hemoglobin 27.9 PG (27.0-31.0) Mean Corpuscular Hemoglobin Concent 33.3 G/DL (32.0-36.0) Red Cell Distribution Width 15.3 % (11.6-14.8) H Platelet Count 298 K/UL (150-450) Mean Platelet Volume 7.1 FL (6.5-10.1) Neutrophils (%) (Auto) 61.9 % (45.0-75.0) Lymphocytes (%) (Auto) 17.9 % (20.0-45.0) L Monocytes (%) (Auto) 8.8 % (1.0-10.0) Eosinophils (%) (Auto) 10.7 % (0.0-3.0) H Basophils (%) (Auto) 0.7 % (0.0-2.0) Sodium Level 140 mEQ/L (135-145) Potassium Level 3.5 mEQ/L (3.4-4.9) Chloride Level 103 mEQ/L (98-107) Carbon Dioxide Level 27 mEQ/L (20-30) Anion Gap 10 (5-15) Blood Urea Nitrogen 20 mg/dL (7-23) Creatinine 0.9 mg/dL (0.7-1.2) Estimat Glomerular Filtration Rate > 60 mL/min (>60) Glucose Level 152 mg/dL (74-106) H Calcium Level 9.0 mg/dL (8.6-10.2) Total Bilirubin 0.2 mg/dL (0.0-1.2) Aspartate Amino Transf (AST/SGOT) 12 U/L (5-40) Alanine Aminotransferase (ALT/SGPT) 9 U/L (3-41) Alkaline Phosphatase 79 U/L (40-129) Pro-B-Type Natriuretic Peptide 206 pg/mL (0-125) H Total Protein 6.9 g/dL (6.6-8.7) Albumin 3.1 g/dL (3.5-5.2) L Globulin 3.8 g/dL Albumin/Globulin Ratio 0.8 (1.0-2.7) L Height (Feet): 5 Height (Inches): 10.00 Weight (Pounds): 170 General Appearance: no apparent distress, alert Cardiovascular: normal rate Respiratory/Chest: normal breath sounds, no respiratory distress Abdominal Exam: site - c/d/i Arabella Quesada NRoselyn Apr 06, 2017 11:02
--- NOTE | 2017-04-06 11:54 | Diagnostic Imaging Report ---
Indication: DYSPNEA Technique: One view of the chest Comparison: none Findings: Stable linear scarring or atelectasis is seen in the left perihilar region. Lungs and pleural space are otherwise clear. Tracheostomy remains. Heart size is normal. Impression: No acute process. No significant change, over 5 days
[2017-04-06 12:00] VITALS: BP 123/71
--- NOTE | 2017-04-06 12:33 | Infectious Diseases Prog Note ---
Assessment/Plan Assessment/Plan ASSESSMENT: 66 y/o male with: // Possible recurrent aspiration PNA / HCAP - CXR 04/01: Tracheostomy. Atelectasis in left midlung and left lower lung. No other change from previous study. 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, multiple revisions, replacements // Chronic encephalopathy / Dementia // [facility] resident // Functional quadriplegia / bedbound // Frequent hospital re-admissions // MDRO colonized ( MRSA, VRE, KPC, MDR-ACB ) // NKDA // Full Code PLAN: - continue empiric zosyn d# 5 / - f/u final cultures - monitor CBC, temperatures - monitor BMP - monitor CXR - vent support, trach care, aspiration precautions Subjective Allergies: Coded Allergies: NO KNOWN DRUG ALLERGIES (Verified Allergy, Unknown, 09/11/16) Subjective remains afebrile culture NGTD Objective Vital Signs Last 24 Hour Vital Signs Date Time Temp Pulse Resp B/P Pulse Ox O2 Delivery O2 Flow Rate FiO2 04/06/17 12:00 40 04/06/17 11:28 85 16 40 04/06/17 08:50 93 17 40 04/06/17 08:00 40 04/06/17 08:00 97.9 88 21 131/96 100 Mechanical Ventilator 40 04/06/17 07:43 82 17 100 Mechanical Ventilator 40 04/06/17 07:30 80 17 40 04/06/17 07:30 40 04/06/17 07:30 80 17 100 Mechanical Ventilator 40 04/06/17 07:25 88 04/06/17 05:15 82 16 40 04/06/17 04:00 98.1 89 18 127/63 100 Mechanical Ventilator 40 04/06/17 04:00 40 04/06/17 04:00 76 04/06/17 03:20 78 17 40 04/06/17 01:00 85 16 40 04/06/17 00:00 84 04/06/17 00:00 40 04/06/17 00:00 99.0 88 19 111/72 100 Mechanical Ventilator 40 04/05/17 22:58 73 14 100 Mechanical Ventilator 40 04/05/17 22:50 73 15 100 Mechanical Ventilator 40 04/05/17 22:50 73 15 40 04/05/17 21:24 70 14 40 04/05/17 20:00 40 04/05/17 20:00 72 04/05/17 20:00 98.5 72 14 117/52 100 Mechanical Ventilator 04/05/17 19:16 70 14 40 04/05/17 17:29 85 17 40 04/05/17 16:03 97.9 86 18 133/60 100 Mechanical Ventilator 04/05/17 16:00 90 04/05/17 16:00 40 04/05/17 14:40 80 15 40 04/05/17 14:40 80 15 100 Mechanical Ventilator 40 04/05/17 14:30 82 15 100 Mechanical Ventilator 40 04/05/17 13:00 89 17 40 04/05/17 12:47 102 Height (Feet): 5 Height (Inches): 10.00 Weight (Pounds): 170 General Appearance: no acute distress HEENT: status post trach Respiratory/Chest: decreased breath sounds Cardiovascular: normal rate, regular rhythm Abdomen: normal bowel sounds, soft, non tender, non distended Laboratory Tests Test 04/06/17 03:20 White Blood Count 12.5 K/UL (4.8-10.8) #H Red Blood Count 3.01 M/UL (4.70-6.10) L Hemoglobin 8.4 G/DL (14.2-18.0) L Hematocrit 25.2 % (42.0-52.0) L Mean Corpuscular Volume 84 FL (80-99) Mean Corpuscular Hemoglobin 27.9 PG (27.0-31.0) Mean Corpuscular Hemoglobin Concent 33.3 G/DL (32.0-36.0) Red Cell Distribution Width 15.3 % (11.6-14.8) H Platelet Count 298 K/UL (150-450) Mean Platelet Volume 7.1 FL (6.5-10.1) Neutrophils (%) (Auto) 61.9 % (45.0-75.0) Lymphocytes (%) (Auto) 17.9 % (20.0-45.0) L Monocytes (%) (Auto) 8.8 % (1.0-10.0) Eosinophils (%) (Auto) 10.7 % (0.0-3.0) H Basophils (%) (Auto) 0.7 % (0.0-2.0) Sodium Level 140 mEQ/L (135-145) Potassium Level 3.5 mEQ/L (3.4-4.9) Chloride Level 103 mEQ/L (98-107) Carbon Dioxide Level 27 mEQ/L (20-30) Anion Gap 10 (5-15) Blood Urea Nitrogen 20 mg/dL (7-23) Creatinine 0.9 mg/dL (0.7-1.2) Estimat Glomerular Filtration Rate > 60 mL/min (>60) Glucose Level 152 mg/dL (74-106) H Calcium Level 9.0 mg/dL (8.6-10.2) Total Bilirubin 0.2 mg/dL (0.0-1.2) Aspartate Amino Transf (AST/SGOT) 12 U/L (5-40) Alanine Aminotransferase (ALT/SGPT) 9 U/L (3-41) Alkaline Phosphatase 79 U/L (40-129) Pro-B-Type Natriuretic Peptide 206 pg/mL (0-125) H Total Protein 6.9 g/dL (6.6-8.7) Albumin 3.1 g/dL (3.5-5.2) L Globulin 3.8 g/dL Albumin/Globulin Ratio 0.8 (1.0-2.7) L Current Medications Medications (Trade) Dose Ordered Sig/Wanda Route PRN Reason Start Time Stop Time Status Last Admin Dose Admin Acetaminophen (Tylenol) 650 mg Q4H PRN ORAL T>100.5 04/01/17 10:00 05/01/17 09:59 Al Hydroxide/Mg Hydroxide (Mylanta II) 30 ml Q6H PRN ORAL dyspepsia 04/01/17 10:00 05/01/17 09:59 Albuterol/ Ipratropium (DuoNeb 0.5-3(2.5)mg/3ml) 3 ml Q8HRT HHN 04/01/17 15:00 04/06/17 14:59 04/06/17 07:47 Dextrose (Dextrose 50%) STAT PRN IV Hypoglycemia 04/01/17 10:00 05/01/17 09:59 Diphenhydramine HCl (Benadryl) 25 mg Q6H PRN ORAL Itching/Pruritis 04/01/17 10:00 05/01/17 09:59 Levothyroxine Sodium (Synthroid) 50 mcg DAILY GT 04/02/17 09:00 05/02/17 08:59 04/06/17 08:25 Metoclopramide HCl (Reglan) 10 mg Q8H IVP 04/05/17 12:00 05/05/17 11:59 04/06/17 04:32 Morphine Sulfate (Morphine Sulfate) 2 mg Q4H PRN IVP Severe Pain (Pain Scale 7-10) 04/01/17 10:00 04/08/17 09:59 Nitroglycerin (Ntg) 0.4 mg Q5M X 3 DOSES PRN SL Prn Chest Pain 04/01/17 10:00 05/01/17 09:59 Ondansetron HCl (Zofran) 4 mg Q6H PRN IVP Nausea & Vomiting 04/01/17 10:00 05/01/17 09:59 Pantoprazole 40 mg 40 mg EVERY 12 HOURS IVP 04/02/17 21:00 05/02/17 20:59 04/06/17 08:25 Piperacillin Sod/ Tazobactam Sod/ Dextrose (Zosyn/D5W) 110 ml @ 27.5 mls/hr EVERY 8 HOURS IVPB 04/02/17 14:00 04/07/17 13:59 04/06/17 06:00 Polyethylene Glycol (Miralax) 17 gm HSPRN PRN ORAL Constipation 04/01/17 21:00 05/01/17 20:59 Sucralfate (Carafate) 1 gm FOUR TIMES A DAY GT 04/01/17 13:00 05/01/17 12:59 04/06/17 08:25 LUNA GOODMAN Apr 06, 2017 12:33
--- NOTE | 2017-04-06 12:39 | Pulmonology Progress Note ---
Assessment/Plan Problems: (1) Sepsis (2) Upper GI bleed (3) Respiratory failure, [id number] (4) Protein-calorie malnutrition, severe (5) Feeding by G-tube Respiratory: monitor respiratory rate, adjust FIO2 Cardiac: stop pressors Renal: F/U I&O, keep IV fluid Infectious Disease: check cultures Gastrointestinal: hold feedings Endocrine: check TSH, check HgA1C, continue sliding scale insulin Hematologic: monitor H/H, transfuse if hgb<8.5 Neurologic: PRN Morphine, keep patient comfortable Prophylaxis: Heparin Notes Reviewed: 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 with: nurses, vocational case manager Subjective ROS Limited/Unobtainable: No Constitutional: Reports: no symptoms HEENT: Repors: no symptoms Respiratory: Reports: no symptoms Allergies: Coded Allergies: NO KNOWN DRUG ALLERGIES (Verified Allergy, Unknown, 09/11/16) Objective Last 24 Hour Vital Signs Date Time Temp Pulse Resp B/P Pulse Ox O2 Delivery O2 Flow Rate FiO2 04/06/17 12:00 40 04/06/17 11:28 85 16 40 04/06/17 08:50 93 17 40 04/06/17 08:00 40 04/06/17 08:00 97.9 88 21 131/96 100 Mechanical Ventilator 40 04/06/17 07:43 82 17 100 Mechanical Ventilator 40 04/06/17 07:30 80 17 40 04/06/17 07:30 40 04/06/17 07:30 80 17 100 Mechanical Ventilator 40 04/06/17 07:25 88 04/06/17 05:15 82 16 40 04/06/17 04:00 98.1 89 18 127/63 100 Mechanical Ventilator 40 04/06/17 04:00 40 04/06/17 04:00 76 04/06/17 03:20 78 17 40 04/06/17 01:00 85 16 40 04/06/17 00:00 84 04/06/17 00:00 40 04/06/17 00:00 99.0 88 19 111/72 100 Mechanical Ventilator 40 04/05/17 22:58 73 14 100 Mechanical Ventilator 40 04/05/17 22:50 73 15 100 Mechanical Ventilator 40 04/05/17 22:50 73 15 40 04/05/17 21:24 70 14 40 04/05/17 20:00 40 04/05/17 20:00 72 04/05/17 20:00 98.5 72 14 117/52 100 Mechanical Ventilator 40 04/05/17 19:16 70 14 40 04/05/17 17:29 85 17 40 04/05/17 16:03 97.9 86 18 133/60 100 Mechanical Ventilator 04/05/17 16:00 90 04/05/17 16:00 40 04/05/17 14:40 80 15 40 04/05/17 14:40 80 15 100 Mechanical Ventilator 40 04/05/17 14:30 82 15 100 Mechanical Ventilator 40 04/05/17 13:00 89 17 40 04/05/17 12:47 102 Intake and Output 04/05/17 04/06/17 19:00 07:00 Intake Total 555.0 ml 897.5 ml Output Total 300 ml 400 ml Balance 255.0 ml 497.5 ml Free Water 60 ml 50 ml IV Total 110.0 ml 137.5 ml Tube Feeding 385 ml 660 ml Other 50 ml Output Urine Total 300 ml 400 ml # Bowel Movements 3 2 General Appearance: WD/WN HEENT: normocephalic, atraumatic Respiratory/Chest: chest wall non-tender, lungs clear Cardiovascular: normal peripheral pulses, normal rate Abdomen: normal bowel sounds, soft, non tender Genitourinary: normal external genitalia Extremities: no clubbing Skin: no lesions Laboratory Tests 04/06/17 03:20: White Blood Count 12.5#H, Red Blood Count 3.01L, Hemoglobin 8.4L, Hematocrit 25.2L, Mean Corpuscular Volume 84, Mean Corpuscular Hemoglobin 27.9, Mean Corpuscular Hemoglobin Concent 33.3, Red Cell Distribution Width 15.3H, Platelet Count 298, Mean Platelet Volume 7.1, Neutrophils (%) (Auto) 61.9, Lymphocytes (%) (Auto) 17.9L, Monocytes (%) (Auto) 8.8, Eosinophils (%) (Auto) 10.7H, Basophils (%) (Auto) 0.7, Sodium Level 140, Potassium Level 3.5, Chloride Level 103, Carbon Dioxide Level 27, Anion Gap 10, Blood Urea Nitrogen 20, Creatinine 0.9, Estimat Glomerular Filtration Rate > 60, Glucose Level 152H , Calcium Level 9.0, Total Bilirubin 0.2, Aspartate Amino Transf (AST/SGOT) 12, Alanine Aminotransferase (ALT/SGPT) 9, Alkaline Phosphatase 79, Pro-B-Type Natriuretic Peptide 206H, Total Protein 6.9, Albumin 3.1L, Globulin 3.8, Albumin /Globulin Ratio 0.8L Current Medications Medications (Trade) Dose Ordered Sig/Wanda Route PRN Reason Start Time Stop Time Status Last Admin Dose Admin Acetaminophen (Tylenol) 650 mg Q4H PRN ORAL T>100.5 04/01/17 10:00 05/01/17 09:59 Al Hydroxide/Mg Hydroxide (Mylanta II) 30 ml Q6H PRN ORAL dyspepsia 04/01/17 10:00 05/01/17 09:59 Albuterol/ Ipratropium (DuoNeb 0.5-3(2.5)mg/3ml) 3 ml Q8HRT HHN 04/01/17 15:00 04/06/17 14:59 04/06/17 07:47 Dextrose (Dextrose 50%) STAT PRN IV Hypoglycemia 04/01/17 10:00 05/01/17 09:59 Diphenhydramine HCl (Benadryl) 25 mg Q6H PRN ORAL Itching/Pruritis 04/01/17 10:00 05/01/17 09:59 Levothyroxine Sodium (Synthroid) 50 mcg DAILY GT 04/02/17 09:00 05/02/17 08:59 04/06/17 08:25 Metoclopramide HCl (Reglan) 10 mg Q8H IVP 04/05/17 12:00 05/05/17 11:59 04/06/17 04:32 Morphine Sulfate (Morphine Sulfate) 2 mg Q4H PRN IVP Severe Pain (Pain Scale 7-10) 04/01/17 10:00 04/08/17 09:59 Nitroglycerin (Ntg) 0.4 mg Q5M X 3 DOSES PRN SL Prn Chest Pain 04/01/17 10:00 05/01/17 09:59 Ondansetron HCl (Zofran) 4 mg Q6H PRN IVP Nausea & Vomiting 04/01/17 10:00 05/01/17 09:59 Pantoprazole 40 mg 40 mg EVERY 12 HOURS IVP 04/02/17 21:00 05/02/17 20:59 04/06/17 08:25 Piperacillin Sod/ Tazobactam Sod/ Dextrose (Zosyn/D5W) 110 ml @ 27.5 mls/hr EVERY 8 HOURS IVPB 04/02/17 14:00 04/07/17 13:59 04/06/17 06:00 Polyethylene Glycol (Miralax) 17 gm HSPRN PRN ORAL Constipation 04/01/17 21:00 05/01/17 20:59 Sucralfate (Carafate) 1 gm FOUR TIMES A DAY GT 04/01/17 13:00 05/01/17 12:59 04/06/17 08:25 MIKALYA WILLOUGHBY Apr 06, 2017 12:38
[2017-04-06] MEDS ORDERED: ZOSYN 3.373.375 GM/1 IVPB (13:16)
[2017-04-06 16:00] VITALS: BP 100/69
[2017-04-06] MEDS ORDERED: NS 275ml ONE (18:34)
--- NOTE | 2017-04-09 14:48 | Discharge Summary ---
Discharge Summary Hospital Course Date of Admission Apr 01, 2017 at 09:35 Date of Discharge Apr 06, 2017 at 18:35 Admitting Diagnosis GI Bleed HPI Maldonado Huffman is a 66 year old male who was admitted on Apr 01, 2017 at 09: 35 for Gastrointestinal Bleed Hospital Course dc summary #[id number] Discharge Medications New Medications: Sczqodtmvyth-Mcje-Erkbbguz,Iso (Zosyn 3.375 Gm Pre Mix-Bag) 3.375 Gm/50 Ml Froz.piggy 3.375 GM IVPB EVERY 8 HOURS for 2 Days, BAG Continued Medications: Albuterol Sulfate* (Albuterol Sulfate Hhn*) 2.5 Mg/3 Ml Vial.neb 3 ML INH Q6HR PRN for Shortness of Breath, EA Amlodipine Besylate (Norvasc) 2.5 Mg Tab 2.5 MG ORAL DAILY, #30 TAB Famotidine (Famotidine) 20 Mg Tablet 20 MG GT DAILY, #60 TAB 0 Refills Ferrous Sulfate (Ferrous Sulfate) 300 Mg/5 Ml Liqd 300 MG NG BID, #60 ML Folic Acid* (Folic Acid*) 1 Mg Tablet 1 MG GT DAILY, TAB Levothyroxine Sodium* (Levothyroxine Sodium*) 50 Mcg Tablet 50 MCG GT DAILY, TAB Take in the morning on an empty stomach, at least 30 minutes before food. Sucralfate* (Carafate*) 1 Gm Tablet 1 GM GT FOUR TIMES A DAY, TAB Discharge Condition Upon Discharge: stable Discharge Disposition Patient was discharged to Discharge Diagnoses: Discharge Instructions Discharge Instructions Special Instructions I have been assigned to complete a D/C Summary on this account. I was not involved in the patient management Amina Garcia NP (Vanchtein) Apr 09, 2017 14:48
--- NOTE | 2017-04-10 07:31 | Discharge Summary 2 SIG ---
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 Vitaliy Wilson M.D., Gastrointestinal specialist. 2. Cesario Daniels M.D., Infectious Disease. BRIEF HOSPITAL STAY: The patient is a 66-year-old male with a history of ventilator-dependent respiratory failure, tracheostomy, dysphagia G-tube, and severe esophagitis, presented with two episodes of coffee-ground emesis earlier that morning. Workup in the emergency room revealed low-grade fever of 99.7. WBC 27.4, hemoglobin 11.7, and hematocrit 38.2. Potassium was 3.5 and subsequently next day 3.2. The patient was admitted for further management. According to the GI doctor in the ED for any gastrointestinal procedure given the severity of esophagitis demonstrated last year via esophagogastroduodenoscopy, he recommended to continue Reglan around the clock, increase PPI to twice a day and add Carafate. Tube feeding to be started as per dietary recommendation with a strict reflux and aspiration precaution. Continue antibiotics. Monitor hemoglobin and hematocrit and transfuse as needed to keep hemoglobin above 7 as a goal. ID closely followed the patient. Per ID, the patient's counts were closely monitored. The patient was on empiric antibiotics. Urine culture negative. Blood culture negative. The patient was on empiric Zosyn, which ID recommended to complete the course. Strict aspiration precautions were maintained. Hemoglobin and hematocrit were closely monitored along with WBC. WBC was down to 12.5, hemoglobin 8.4, and hematocrit 25.2 prior to discharge. Chest x-ray initial revealed atelectasis in left midlung and left lower lung. Follow up chest x-ray prior to discharge revealed no changes. Venous duplex of bilateral lower extremity revealed no evidence of acute DVT. Dietary seen and evaluated the patient. Recommended tube feeding such as Osmolite 1.5 at 55 mL/hour for 22 hours and add ProSource 1 package daily. The patient was stable to return back to half-way facility. Ventilator support and tracheostomy care was provided as needed. Settings are optimized to keep saturation above 92%. No signs of distress on current setting. The patient was discharged to subacute half-way facility. FINAL DIAGNOSES: 1. Possible sepsis. 2. Possible recurrent aspiration pneumonia. 3. Possible urinary tract infection. 4. Recurrent upper gastrointestinal bleeding. 5. Severe esophagitis. 6. Anemia. 7. Ventilator-dependent respiratory failure tracheostomy status. 8. Dysphagia gastrostomy tube with multiple revision and replacement. 9. Functional quadriplegia. 10. Alzheimer dementia. 11. Severe protein-calorie malnutrition. DISCHARGE MEDICATIONS: See medication reconciliation list. Complete antibiotic course at the half-way facility as recommended by ID. DISCHARGE INSTRUCTIONS: The patient was discharged to subacute half-way facility. FOLLOWUP: Follow up with medical doctor and director of accounting at the facility. Huma Keating M.D. I have been assigned to dictate discharge summary on this account and I was not involved in the patient's management. Amina [facility] N.PKathie DR: NIURKA JOB#: [id number] CC:
== END 2017-04-06 18:35 | DRG 870 ==
LOC: EDBD 09:02 → EMR 09:17 → EDBEDREQ 09:26 → 2W 09:35 → EDBEDREQ 11:53
PROC: 5A1955Z Respiratory Ventilation, Greater than 96 Consecutive Hours (ICD-10-PCS; principal; 2017-04-01)
DX: A41.9 Sepsis, unspecified organism (principal); J96.20 Acute and chronic respiratory failure, unspecified whether with hypoxia or hypercapnia; E43 Unspecified severe protein-calorie malnutrition; J69.0 Pneumonitis due to inhalation of food and vomit; Z99.11 Dependence on respirator [ventilator] status; Z43.0 Encounter for attention to tracheostomy; R53.2 Functional quadriplegia; G30.9 Alzheimer's disease, unspecified; F02.80 Dementia in other diseases classified elsewhere, unspecified severity, without behavioral disturbance, psychotic disturbance, mood disturbance, and anxiety; Z43.1 Encounter for attention to gastrostomy; K92.2 Gastrointestinal hemorrhage, unspecified; N39.0 Urinary tract infection, site not specified; K20.9 Esophagitis, unspecified; D64.9 Anemia, unspecified; R13.10 Dysphagia, unspecified; F29 Unspecified psychosis not due to a substance or known physiological condition
CPT/HCPCS: 36415; 71010; 80048; 80053; 81003; 82270; 83690; 83880; 85007; 85025; 85610; 85730; 86850; 86900; 86901; 87040; 87081; 87086; 93005; 93970; 94002; 94003; 94640; 94644; J2765; J7620

== ENCOUNTER 2017-04-14 16:29 | Inpatient (IN) | payer MEDICAID, MEDICARE ==
[~2017-04-14] VITALS: Ht 167.6 cm; Wt 64.4 kg
[~2017-04-14 16:29] MED LIST changes: +COLACE100 MG GT; +ZOSYN 3.373.375 GM/1 IVPB
[2017-04-14] MEDS ORDERED: Pantoprazole Inj IV ONE (16:45)
[2017-04-14 17:00] VITALS: BP 126/81
[2017-04-14 17:30] LABS: MEAN CORPUSCULAR HEMOGLOBIN 26.7 PG (27.0-31.0); MEAN CORPUSCULAR HGB CONC 33.4 G/DL (32.0-36.0); MEAN CORPUSCULAR VOLUME 80 FL (80-99); MEAN PLATELET VOLUME 6.6 FL (6.5-10.1); PLATELET COUNT 372 K/UL (150-450); RED BLOOD COUNT 3.44 M/UL (4.70-6.10); RED CELL DISTRIBUTION WIDTH 15.4 % (11.6-14.8)
[2017-04-14] MEDS ORDERED: FERROUS SU300 MG/5 M NG (17:37)
[2017-04-14] MEDS ORDERED: FERROUS SULFAT325 MG ORAL (17:37)
[2017-04-14 17:43] LABS: APPEARANCE,URINE SLIGHTLY CLOUDY; KETONES,URINE NEGATIVE (NEGATIVE); LEUKOCYTE ESTERASE ,URINE 3+ (NEGATIVE); NITRITE,URINE NEGATIVE (NEGATIVE); PH,URINE 6 (4.5-8.0); PROTEIN,URINE 2+ (NEGATIVE); UROBILINOGEN,URINE NORMAL MG/DL (0.0-1.0)
[2017-04-14] MEDS ORDERED: MULTI-DELYN237 ML ORAL (17:51)
[2017-04-14] MEDS ORDERED: VITAMIN C500 M1 ORAL (17:51)
[2017-04-14] MEDS ORDERED: PROMOD946 ML PO (17:51)
[2017-04-14] MEDS ORDERED: ZINC SULFATE220 M1 ORAL (17:51)
[2017-04-14] MEDS ORDERED: DOCUSATE SODIU100 MG GT (17:54)
[2017-04-14] MEDS ORDERED: UTI-STAT L3875 MG/31 PO (17:54)
[2017-04-14 17:55] LABS: TROPONIN I < 0.30 ng/mL (<=0.30)
[2017-04-14 17:59] LABS: ALANINE AMINOTRANSFERASE 10 U/L (3-41); ALBUMIN/GLOBULIN RATIO 0.8 (1.0-2.7); ANION GAP 9 (5-15); ASPARTATE AMINO TRANSFERASE 15 U/L (5-40); CARBON DIOXIDE 28 mEQ/L (20-30); CHLORIDE 99 mEQ/L (98-107); CREATININE 0.7 mg/dL (0.7-1.2); GLOMERULAR FILTRATION RATE > 60 mL/min (>60); HEMOLYSIS 13; LIPASE 52 U/L (< 60); POTASSIUM 3.5 mEQ/L (3.4-4.9); SODIUM 136 mEQ/L (135-145); TOTAL PROTEIN 6.8 g/dL (6.6-8.7)
[2017-04-14] MEDS ORDERED: Vancomycin 1 GM in NS 275 ML IV ONE (18:00)
[2017-04-14] MEDS ORDERED: Vancomycin 1gm inj IVPB ONE (18:14)
[2017-04-14] MEDS ORDERED: Acetaminophen 650 MG SUPP RECTAL ONE (19:15)
[2017-04-14 19:23] VITALS: BP 161/65
[2017-04-14 19:26] LABS: BACTERIA,URINE MODERATE /HPF; YEAST,URINE MODERATE /HPF
[2017-04-14] MEDS ORDERED: Acetaminophen 650 MG SUPP RECTAL PRN ×2 (19:45→20:13)
[2017-04-14 19:47] LABS: BAND NEUTROPHILS % (MANUAL) 6 % (0-8); BASOPHILS % (MANUAL) 1 % (0-2); EOSINOPHILS % (MANUAL) 4 % (0-3); LYMPHOCYTES % (MANUAL) 9 % (20-45); NEUTROPHILS % (MANUAL) 74 % (45-75); TOTAL CELLS COUNTED 100
[2017-04-14 19:48] LABS: PLATELET ESTIMATE ADEQUATE
[2017-04-14 19:49] LABS: ANISOCYTOSIS 1+; MICROCYTES 1+; PLATELET MORPHOLOGY NORMAL; POLYCHROMASIA 1+
--- NOTE | 2017-04-14 20:02 | Emergency Room Report ---
History of Present Illness General Chief Complaint: Gastrointestinal Bleed Source: Medical Record, EMS Present Illness HPI 66-year-old male presents ED for evaluation. Patient resides in care home. Patient has trach and is on ventilator. Has G-tube. Per nursing staff patient has been presenting with coffee-ground emesis x1 day. Patient has encephalopathy is and is nonverbal at baseline. Patient showing no signs of distress upon arrival. Patient does have fever and is tachycardic. No other aggravating or relieving factors. No other associated symptom Allergies: Coded Allergies: NO KNOWN DRUG ALLERGIES (Verified Allergy, Unknown, 09/11/16) Patient History Past Medical History: HTN, asthma, CVA/TIA, dementia, seizures, psych hx Past Surgical History: other - trach/gtube Pertinent Family History: none Social History: Denies: alcohol use, drug use, smoking Immunizations: UTD Reviewed Nursing Documentation: PMH: Agreed, PSxH: Agreed Nursing Documentation-PMH Hx Cardiac Problems: Yes Hx Hypertension: Yes Hx Asthma: Yes Hx COPD: No - RESP FAILURE GI BLEED Hx Diabetes: Yes Hx Cancer: No Hx Neurological Problems: Yes Hx Cerebrovascular Accident: Yes Hx Transient Ischemic Attacks: Yes Hx Dementia: Yes Hx Parkinson's Disease: Yes Hx Encephalitis: Yes Hx Seizures: Yes Hx Epilepsy: Yes Hx Paralysis: Yes - HEMIPLEGIA Hx Concentration Difficulty: Yes Hx Speech Problem: Yes Hx Aphasia: Yes Hx Weakness: Yes Hx Fatigue: Yes Hx Neurologic Surgery: No Hx Brain Shunt: No Review of Systems All Other Systems: negative except mentioned in HPI Physical Exam Vital Signs Date Time Temp Pulse Resp B/P Pulse Ox O2 Delivery O2 Flow Rate FiO2 04/14/17 16:24 98.8 102 20 115/65 100 Trach Collar 04/14/17 16:40 40 Sp02 EP Interpretation: reviewed, normal General Appearance: other - nonverbal Head: normocephalic Eyes: bilateral eye PERRL, bilateral eye normal inspection ENT: normal ENT inspection Neck: tracheotomy Respiratory: chest non-tender, lungs clear, normal breath sounds, speaking full sentences Cardiovascular #1: no edema, tachycardia Gastrointestinal: other - gtub Rectal: deferred Genitourinary: no CVA tenderness Musculoskeletal: normal inspection Neurologic: other - encephalopathy Psychiatric: other - encephalopathy Skin: normal inspection Lymphatic: normal inspection Procedures Critical Care Time Critical Care Time i. I feel this is a highly complex case requiring extensive working including EKG/Rhythm strip, Xray/CT/US, Blood/urine lab work, repeat exams while in ED, and administration of strong opiates/narcotics for pain control, admission to hospital or close patient follow up. Total time: 30 min bedside evaluation and treatment excludes procedures (EKG). Reason for critical care: Upper GI bleed, leukocytosis, poor IV access Possible complications: hypotension, hypertension, ID, shock, arrhythmias, metabolic acidosis, end organ damage, respiratory failure. Interventions: Labs, IV fluids, EKG, chest x-ray. Protonix, Zofran. Antibiotics. Central line Course: Patient brought in for upper GI bleed. Labs show significant leukocytosis. Chest x-ray shows some right-sided atelectasis. Patient has poor IV access. Right femoral central line placed. Antibiotics given. Protonix and Zofran given. Rectal tylenol given for fever. Consultations: nursing staff, EMS, family Performed by: Dr Agee Tolerated well condition = serious j. because of unstable vital signs this patient had a condition that could potentially threaten life or limb. I feel this is a critical patient who required my full attention while patient was considered critical. Total Critical Care Time excluding procedures was greater than 35 minutes Central Line Central Line : Consent: Emergent Central Line Lumen: triple Maximal Sterile Barrier Tech: yes cap, yes mask, yes sterile gown, yes sterile gloves, yes large sterile sheet, yes hand hygiene, yes chlorhexidine prep Central Line Postion: femoral (R) Anesthesia: Lidocaine Complications: none Central Line Post Position: sutured, good blood return Attempts: One Patient Tolerated: Well Complications: None Medical Decision Making Diagnostic Impression: Primary Impression: UGIB (upper gastrointestinal bleed) Additional Impressions: Tracheostomy dependence Fever Qualified Codes: R50.9 - Fever, unspecified UTI (urinary tract infection) Qualified Codes: N39.0 - Urinary tract infection, site not specified Pneumonia Qualified Codes: J18.1 - Lobar pneumonia, unspecified organism ER Course Hospital Course 66-year-old male presents ED coffee-ground emesis Differential diagnoses include: UGIB, LGIB, hemorrhoids Clinical course 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 After initial history and physical I ordered labs, IV fluids, UA, zofran, protonix Labs - signifiant leukocytosis, Hb/Hct stable. electrolytes ok. UA + bacteria CXR - R lower atelectasis/infiltrate EKG - sinus tachycardia, no acute changes interpreted by me Patient is difficult IV access; placed right femoral central line Antibiotics given. Given 30 mL per KG fluid bolus. Case discussed with Dr. Keating and he agreed to accept the patient to his service for further care and support I feel this is a highly complex case requiring extensive working including EKG/ Rhythm strip, Xray/CT/US, Blood/urine lab work, repeat exams while in ED, and administration of strong opiates/narcotics for pain control, admission to hospital or close patient follow up. Diagnosis - UGIB, tracheostomy dependence, fever, UTI, pneumonia Patient admitted to [facility] in serious condition Labs Test 04/14/17 17:15 04/14/17 17:30 04/14/17 19:30 White Blood Count 29.0 K/UL (4.8-10.8) Red Blood Count 3.44 M/UL (4.70-6.10) Hemoglobin 9.2 G/DL (14.2-18.0) Hematocrit 27.5 % (42.0-52.0) Mean Corpuscular Volume 80 FL (80-99) Mean Corpuscular Hemoglobin 26.7 PG (27.0-31.0) Mean Corpuscular Hemoglobin Concent 33.4 G/DL (32.0-36.0) Red Cell Distribution Width 15.4 % (11.6-14.8) Platelet Count 372 K/UL (150-450) Mean Platelet Volume 6.6 FL (6.5-10.1) Neutrophils (%) (Auto) % (45.0-75.0) Lymphocytes (%) (Auto) % (20.0-45.0) Monocytes (%) (Auto) % (1.0-10.0) Eosinophils (%) (Auto) % (0.0-3.0) Basophils (%) (Auto) % (0.0-2.0) Differential Total Cells Counted 100 Neutrophils % (Manual) 74 % (45-75) Lymphocytes % (Manual) 9 % (20-45) Monocytes % (Manual) 6 % (1-10) Eosinophils % (Manual) 4 % (0-3) Basophils % (Manual) 1 % (0-2) Band Neutrophils 6 % (0-8) Platelet Estimate Adequate Platelet Morphology Normal Polychromasia 1+ Anisocytosis 1+ Microcytosis 1+ Prothrombin Time 10.0 SEC (9.30-11.50) Prothromb Time International Ratio 1.0 (0.9-1.1) Activated Partial Thromboplast Time 26 SEC (23-33) Sodium Level 136 mEQ/L (135-145) Potassium Level 3.5 mEQ/L (3.4-4.9) Chloride Level 99 mEQ/L (98-107) Carbon Dioxide Level 28 mEQ/L (20-30) Anion Gap 9 (5-15) Blood Urea Nitrogen 20 mg/dL (7-23) Creatinine 0.7 mg/dL (0.7-1.2) Estimat Glomerular Filtration Rate > 60 mL/min (>60) Glucose Level 147 mg/dL (74-106) Calcium Level 9.0 mg/dL (8.6-10.2) Total Bilirubin < 0.2 mg/dL (0.0-1.2) Aspartate Amino Transf (AST/SGOT) 15 U/L (5-40) Alanine Aminotransferase (ALT/SGPT) 10 U/L (3-41) Alkaline Phosphatase 75 U/L (40-129) Total Creatine Kinase 24 U/L (38-174) Creatine Kinase MB 2.0 ng/mL (< 6.7) Creatine Kinase MB Relative Index 8.3 Troponin I < 0.30 ng/mL (<=0.30) Total Protein 6.8 g/dL (6.6-8.7) Albumin 3.2 g/dL (3.5-5.2) Globulin 3.6 g/dL Albumin/Globulin Ratio 0.8 (1.0-2.7) Lipase 52 U/L (< 60) Urine Color Pale yellow Urine Appearance Slightly cloudy Urine pH 6 (4.5-8.0) Urine Specific [place] 1.015 (1.005-1.035) Urine Protein 2+ (NEGATIVE) Urine Glucose (UA) Negative (NEGATIVE) Urine Ketones Negative (NEGATIVE) Urine Occult Blood 1+ (NEGATIVE) Urine Nitrite Negative (NEGATIVE) Urine Bilirubin Negative (NEGATIVE) Urine Urobilinogen Normal MG/DL (0.0-1.0) Urine Leukocyte Esterase 3+ (NEGATIVE) Urine RBC 5-10 /HPF (0 - 0) Urine WBC 10-15 /HPF (0 - 0) Urine Squamous Epithelial Cells None /LPF (NONE/OCC) Urine Bacteria Moderate /HPF (NONE) Urine Yeast Moderate /HPF (NONE) EKG Diagnostic Results Rate: tachycardiac Rhythm: NSR ST Segments: no acute changes ASA given to the pt in ED: No Rhythm Strip Diag. Results EP Interpretation: yes Rhythm: NSR, no PVC's, no ectopy Chest X-Ray Diagnostic Results Chest X-Ray Diagnostic Results : Chest X-Ray Ordered: Yes # of Views/Limited/Complete: 1 View Indication: Other - vomiting EP Interpretation: Yes Interpretation: no effusion, no pneumothorax, other - R lower infiltrate Impression: Other - pneumonia\ Interpreting ER Provider: Electronically signed by Anup Agee MD Last Vital Signs Date Time Temp Pulse Resp B/P Pulse Ox O2 Delivery O2 Flow Rate FiO2 04/14/17 19:23 101.5 134 35 161/65 100 40 04/14/17 16:24 Trach Collar Status: improved Disposition: ADMITTED INPATIENT Condition: Serious Referrals: MIKAYLA KEATING (PCP) ANUP AGEE M.D. Apr 14, 2017 20:02
[2017-04-14] MEDS ORDERED: Mylanta II UD 30ml ORAL PRN (20:15)
[2017-04-14] MEDS ORDERED: Nitroglycerin Subl 0.4mg tab (Bottle Of 25) SL PRN (20:15)
[2017-04-14 20:25] LABS: REFLEX LACTIC ACID YES OR NO YES
[2017-04-14 20:30] VITALS: BP 159/72
[2017-04-14] MEDS ORDERED: D5 1/2NS 1,000 ML IV SCH (20:30)
--- NOTE | 2017-04-14 20:56 | Consultation ---
History of Present Illness General Date patient seen: Apr 14, 2017 Time patient seen: 18:00 Chief Complaint: Gastrointestinal Bleed Referring physician: dr Viveros Reason for Consultation: inpatient management Present Illness HPI 66 y/old male with PMH significant for VDRF/tracheostomy, dysphagia, G tube, HTN , hx of CVA, seizure disorder, hypothyroidism, dementia, chronic encephalopathy , severe esophagitis was sent in from the SNF for evaluation of hematemesis x 1 day. Workup in ED revealed fever-101.5, tachycardia, tachypnea lactic acid-2.0-WNL leukocytosis-29 anemia- 9.2/27.5 UA with evidence of UTI CXR with possible RLL infiltrate troponin negative ECG with ST patient with hx of recurrent upper GI bleeding, GI workup that done previously revealed severe esophagitis patient was admitted for further management Allergies: Coded Allergies: NO KNOWN DRUG ALLERGIES (Verified Allergy, Unknown, 09/11/16) Medication History Scheduled Amlodipine Besylate (Norvasc), 2.5 MG ORAL DAILY Ascorbic Acid* (Vitamin C*), 500 MG ORAL DAILY, (Reported) Docusate Sodium* (Docusate Sodium*), 100 MG GT TWICE A DAY, (Reported) Famotidine (Famotidine), 20 MG GT DAILY, (Reported) Ferrous Sulfate (Ferrous Sulfate), 7.5 ML NG TWICE A DAY, (Reported) Folic Acid* (Folic Acid*), 1 MG GT DAILY, (Reported) Levothyroxine Sodium* (Levothyroxine Sodium*), 50 MCG GT DAILY, (Reported) Multivitamin Liquid* (Multi-Delyn*), 5 ML ORAL DAILY, (Reported) Hzvbureywdib-Sxfa-Kaxzcpzo,Iso (Zosyn 3.375 Gm Pre Mix-Bag), 3.375 GM IVPB EVERY 8 HOURS Sucralfate* (Carafate*), 1 GM GT FOUR TIMES A DAY, (Reported) Zinc Sulfate (Zinc Sulfate*), 220 MG ORAL DAILY, (Reported) Scheduled PRN Acetaminophen (Acetaminophen), 640 MG GT Q4HR PRN for Prn Headache/Temp > 101, ( Reported) Ipratropium/Albuterol Sulfate (DuoNeb 0.5-3(2.5)mg/3ml), 3 ML HHN Q4H PRN for Shortness of Breath Miscellaneous Medications Cran/Vitc/Mannose/Inulin/Brom (Uti-Stat Liquid), 3,875 MG PO, (Reported) Protein Supplement (Promod), 30 ML PO, (Reported) Discontinued Medications Albuterol Sulfate* (Albuterol Sulfate Hhn*), 3 ML INH Q6HR PRN for Shortness of Breath, (Reported) Discontinued Reason: Pt stopped taking med Benztropine Mesylate* (Benztropine Mesylate*), 1 MG GT BID, (Reported) Discontinued Reason: Pt stopped taking med Bisacodyl (Dulcolax), 10 MG RC DAILY PRN for Constipation, (Reported) Discontinued Reason: Pt stopped taking med Docusate Sodium* (Colace*), 100 MG GT TWICE A DAY, (Reported) Discontinued Reason: Pt stopped taking med Ferrous Sulfate (Ferrous Sulfate), 300 MG NG BID Discontinued Reason: Pt stopped taking med Ferrous Sulfate* (Ferrous Sulfate*), 325 MG ORAL TWICE A DAY, (Reported) Discontinued Reason: Pt stopped taking med Magnesium Hydroxide* (Milk Of Magnesia*), 30 ML ORAL QHS PRN for Constipation, ( Reported) Discontinued Reason: Pt stopped taking med Metoclopramide Hcl* (Reglan*), 5 MG GT EVERY 6 HOURS, (Reported) Discontinued Reason: Pt stopped taking med Oxcarbazepine (Oxcarbazepine), 300 MG GT TWICE A DAY, (Reported) Discontinued Reason: Pt stopped taking med Saccharomyces Boulardii (Florastor*), 250 MG GT TWICE A DAY, (Reported) Discontinued Reason: Pt stopped taking med Patient History History Provided By: Medical Record Healthcare decision maker Resuscitation status Full code Advanced Directive on File Past Medical/Surgical History Past Medical/Surgical History: (1) C. difficile colitis (2) Severe erosive esophagitis (3) Aspiration pneumonia (4) UTI (urinary tract infection) (5) Sepsis (6) Gastritis (7) Anemia (8) Upper GI bleed (9) HTN (hypertension) (10) Respiratory failure, [id number] (11) Alzheimer's dementia Review of Systems ROS Narrative unable to obtain due to chronic encephalopathy Physical Exam General Appearance: no apparent distress, lethargic, other - bedriden, thin, male, chroncially ill looking on Vent AC 600-40%-14 Lines, tubes and drains: central line - femoral intact HEENT: normocephalic, atraumatic, anicteric Neck: trach - Portex#7, secretions brown, thin, large Respiratory/Chest: no respiratory distress, rhonchi - right - scattered Cardiovascular/Chest: normal peripheral pulses, regular rhythm - ST on tele, no JVD, tachycardia Abdomen: normal bowel sounds, non tender, soft, other - G tube Extremities: normal capillary refill, no edema Neurologic: other Musculoskeletal: atrophy - BLE Last 24 Hour Vital Signs Date Time Temp Pulse Resp B/P Pulse Ox O2 Delivery O2 Flow Rate FiO2 04/14/17 19:23 101.5 134 35 161/65 100 40 04/14/17 19:23 119 26 40 04/14/17 18:30 40 04/14/17 17:00 98.8 112 28 126/81 98 40 04/14/17 16:40 116 28 40 04/14/17 16:24 98.8 102 20 115/65 100 Trach Collar Laboratory Tests Test 04/14/17 17:15 04/14/17 17:30 04/14/17 19:30 White Blood Count 29.0 K/UL (4.8-10.8) *H Red Blood Count 3.44 M/UL (4.70-6.10) L Hemoglobin 9.2 G/DL (14.2-18.0) L Hematocrit 27.5 % (42.0-52.0) L Mean Corpuscular Volume 80 FL (80-99) Mean Corpuscular Hemoglobin 26.7 PG (27.0-31.0) L Mean Corpuscular Hemoglobin Concent 33.4 G/DL (32.0-36.0) Red Cell Distribution Width 15.4 % (11.6-14.8) H Platelet Count 372 K/UL (150-450) Mean Platelet Volume 6.6 FL (6.5-10.1) Neutrophils (%) (Auto) % (45.0-75.0) Lymphocytes (%) (Auto) % (20.0-45.0) Monocytes (%) (Auto) % (1.0-10.0) Eosinophils (%) (Auto) % (0.0-3.0) Basophils (%) (Auto) % (0.0-2.0) Differential Total Cells Counted 100 Neutrophils % (Manual) 74 % (45-75) Lymphocytes % (Manual) 9 % (20-45) L Monocytes % (Manual) 6 % (1-10) Eosinophils % (Manual) 4 % (0-3) H Basophils % (Manual) 1 % (0-2) Band Neutrophils 6 % (0-8) Platelet Estimate Adequate Platelet Morphology Normal Polychromasia 1+ Anisocytosis 1+ Microcytosis 1+ Prothrombin Time 10.0 SEC (9.30-11.50) Prothromb Time International Ratio 1.0 (0.9-1.1) Activated Partial Thromboplast Time 26 SEC (23-33) Sodium Level 136 mEQ/L (135-145) Potassium Level 3.5 mEQ/L (3.4-4.9) Chloride Level 99 mEQ/L (98-107) Carbon Dioxide Level 28 mEQ/L (20-30) Anion Gap 9 (5-15) Blood Urea Nitrogen 20 mg/dL (7-23) Creatinine 0.7 mg/dL (0.7-1.2) Estimat Glomerular Filtration Rate > 60 mL/min (>60) Glucose Level 147 mg/dL (74-106) H Calcium Level 9.0 mg/dL (8.6-10.2) Total Bilirubin < 0.2 mg/dL (0.0-1.2) Aspartate Amino Transf (AST/SGOT) 15 U/L (5-40) Alanine Aminotransferase (ALT/SGPT) 10 U/L (3-41) Alkaline Phosphatase 75 U/L (40-129) Total Creatine Kinase 24 U/L (38-174) L Creatine Kinase MB 2.0 ng/mL (< 6.7) Creatine Kinase MB Relative Index 8.3 Troponin I < 0.30 ng/mL (<=0.30) Total Protein 6.8 g/dL (6.6-8.7) Albumin 3.2 g/dL (3.5-5.2) L Globulin 3.6 g/dL Albumin/Globulin Ratio 0.8 (1.0-2.7) L Lipase 52 U/L (< 60) Urine Color Pale yellow Urine Appearance Slightly cloudy Urine pH 6 (4.5-8.0) Urine Specific [place] 1.015 (1.005-1.035) Urine Protein 2+ (NEGATIVE) H Urine Glucose (UA) Negative (NEGATIVE) Urine Ketones Negative (NEGATIVE) Urine Occult Blood 1+ (NEGATIVE) H Urine Nitrite Negative (NEGATIVE) Urine Bilirubin Negative (NEGATIVE) Urine Urobilinogen Normal MG/DL (0.0-1.0) Urine Leukocyte Esterase 3+ (NEGATIVE) H Urine RBC 5-10 /HPF (0 - 0) H Urine WBC 10-15 /HPF (0 - 0) H Urine Squamous Epithelial Cells None /LPF (NONE/OCC) Urine Bacteria Moderate /HPF (NONE) H Urine Yeast Moderate /HPF (NONE) H Lactic Acid Level 2.00 mmol/L (0.66-2.22) Height (Feet): 5 Height (Inches): 6.00 Weight (Pounds): 150 Medications Current Medications Medications (Trade) Dose Ordered Sig/Wanda Route PRN Reason Start Time Stop Time Status Last Admin Dose Admin Acetaminophen (Tylenol) 650 mg Q4H PRN ORAL T>100.5 04/14/17 20:15 05/14/17 20:14 Acetaminophen (Tylenol) 650 mg Q4H PRN RECTAL Mild Pain (Pain Scale 1-3) 04/14/17 20:13 05/14/17 19:44 Al Hydroxide/Mg Hydroxide (Mylanta II) 30 ml Q6H PRN ORAL dyspepsia 04/14/17 20:15 05/14/17 20:14 Albuterol/ Ipratropium (DuoNeb 0.5-3(2.5)mg/3ml) 3 ml Q8HRT HHN 04/14/17 23:00 04/19/17 22:59 Amlodipine Besylate (Norvasc) 2.5 mg DAILY ORAL 04/15/17 09:00 05/15/17 08:59 Chlorhexidine Gluconate (Jasmin-Hex 2%) 1 applic DAILY TOPIC 04/15/17 09:00 05/15/17 08:59 Dextrose (Dextrose 50%) STAT PRN IV Hypoglycemia 04/14/17 20:15 05/14/17 20:14 Dextrose/Sodium Chloride (D5 0.45% NS) 1,000 ml @ 75 mls/hr [id number] IV 04/14/17 20:30 05/14/17 20:29 Diphenhydramine HCl (Benadryl) 25 mg Q6H PRN ORAL Itching/Pruritis 04/14/17 20:15 05/14/17 20:14 Levothyroxine Sodium (Synthroid) 50 mcg DAILY GT 04/15/17 09:00 05/15/17 08:59 Morphine Sulfate (Morphine Sulfate) 2 mg Q4H PRN IVP Severe Pain (Pain Scale 7-10) 04/14/17 20:15 04/21/17 20:14 Nitroglycerin (Ntg) 0.4 mg Q5M X 3 DOSES PRN SL Prn Chest Pain 04/14/17 20:15 05/14/17 20:14 Ondansetron HCl (Zofran) 4 mg Q6H PRN IVP Nausea & Vomiting 04/14/17 20:15 05/14/17 20:14 Polyethylene Glycol (Miralax) 17 gm HSPRN PRN ORAL Constipation 04/14/17 21:00 05/14/17 20:59 Sodium Chloride 1,000 ml @ 100 mls/hr Q10H IV 04/14/17 20:00 05/14/17 19:59 Sodium Chloride (Sodium Chloride 1000ml bag) 1,000 ml @ 999 mls/hr Q1H1M ONCE IV 04/14/17 20:00 04/14/17 21:00 04/14/17 20:03 Sucralfate 1 gm 1 gm FOUR TIMES A DAY GT 04/14/17 21:00 05/14/17 20:59 Assessment/Plan Assessment/Plan ASSESSMENT sepsis UTI with hx of recurrent UTI HCA PNA upper GI bleeding severe erosive esophagitis anemia acute on chronic respiratory failure VDRF/trach dysphagia, G tube HTN hx of CVA chronic encephalopathy functional quadriplegia severe protein calorie malnutrition hypothyroidism PLAN OF CARE LUIS vent support [facility] care pulmonary toilet baseline ABG in am and titrate settings as needed fup with CXR in am empiric abx, fup with cx, get stool for C dif ( hx of recureent C dif in the past) ID consult NPO IVF GI consult PPI and Carafate monitor HH transfuse prn, goal to keep Hgb above 7 BP management with current regimen of CCB and optimize as needed continue levothyroxine, check TSH Venous Duplex BLE and if negative place SCD prealbumin dietary eval re supplements and further TF and rate when feeding started case discussed and evaluated by supervising physician Amina Garcia ([facility]) [employer] Apr 14, 2017 20:56
[2017-04-14] MEDS ORDERED: Miralax 17gm pkt ORAL PRN (21:00)
[2017-04-14 21:04] VITALS: BP 135/79
[2017-04-14 23:27] VITALS: BP 115/69
[2017-04-14] MEDS: DuoNeb 0.5-3(2.5)mg/3ml neb HHN SCH (23:57)
[2017-04-15] MEDS: Dyna-Hex 2% Top Sol 8oz TOPIC SCH ×2 (00:06→20:47)
[2017-04-15] MEDS: Sucralfate 1gm tab GT SCH ×5 (00:06→20:29)
[2017-04-15] MEDS: Morphine Sulfate 2mg/ml Inj IVP PRN ×2 (03:13→20:49)
[2017-04-15 04:00] VITALS: BP 121/67
[2017-04-15 05:49] LABS: MEAN CORPUSCULAR HEMOGLOBIN 24.8 PG (27.0-31.0); MEAN CORPUSCULAR HGB CONC 30.3 G/DL (32.0-36.0); MEAN CORPUSCULAR VOLUME 82 FL (80-99); MEAN PLATELET VOLUME 7.4 FL (6.5-10.1); PLATELET COUNT 341 K/UL (150-450); RED BLOOD COUNT 2.84 M/UL (4.70-6.10); RED CELL DISTRIBUTION WIDTH 15.4 % (11.6-14.8)
[2017-04-15 06:12] LABS: ALANINE AMINOTRANSFERASE 10 U/L (3-41); ALBUMIN/GLOBULIN RATIO 0.9 (1.0-2.7); ASPARTATE AMINO TRANSFERASE 16 U/L (5-40); CALCIUM 8.4 mg/dL (8.6-10.2); CARBON DIOXIDE 26 mEQ/L (20-30); CREATININE 0.6 mg/dL (0.7-1.2); GLOMERULAR FILTRATION RATE > 60 mL/min (>60); HEMOLYSIS 0; TOTAL PROTEIN 5.9 g/dL (6.6-8.7)
[2017-04-15 06:18] LABS: WHITE BLOOD COUNT 34.4 K/UL (4.8-10.8)
[2017-04-15 06:28] LABS: PROTHROMBIN TIME 10.5 SEC (9.30-11.50)
[2017-04-15 07:03] LABS: ANION GAP 11 (5-15); CHLORIDE 102 mEQ/L (98-107); POTASSIUM 3.7 mEQ/L (3.4-4.9); SODIUM 139 mEQ/L (135-145)
[2017-04-15 07:19] LABS: BAND NEUTROPHILS % (MANUAL) 7 % (0-8); LYMPHOCYTES % (MANUAL) 6 % (20-45); NEUTROPHILS % (MANUAL) 82 % (45-75); TOTAL CELLS COUNTED 100
[2017-04-15] MEDS: DuoNeb 0.5-3(2.5)mg/3ml neb HHN SCH ×3 (07:19→22:54)
[2017-04-15 07:20] LABS: ANISOCYTOSIS 1+; BASOPHILS % (MANUAL) 0 % (0-2); EOSINOPHILS % (MANUAL) 0 % (0-3); HYPOCHROMASIA 1+; PLATELET ESTIMATE ADEQUATE; PLATELET MORPHOLOGY NORMAL
[2017-04-15 07:59] LABS: MEAN CORPUSCULAR HGB CONC 30.5 G/DL (32.0-36.0); MEAN CORPUSCULAR VOLUME 82 FL (80-99); MEAN PLATELET VOLUME 6.6 FL (6.5-10.1); PLATELET COUNT 299 K/UL (150-450); RED BLOOD COUNT 2.81 M/UL (4.70-6.10); RED CELL DISTRIBUTION WIDTH 15.6 % (11.6-14.8)
[2017-04-15 08:02] VITALS: BP 146/63
[2017-04-15 08:08] LABS: WHITE BLOOD COUNT 31.2 K/UL (4.8-10.8)
--- NOTE | 2017-04-15 08:21 | Pulmonology Progress Note ---
Assessment/Plan Assessment/Plan ASSESSMENT sepsis UTI with hx of recurrent UTI HCA PNA upper GI bleeding severe erosive esophagitis anemia acute on chronic respiratory failure VDRF/trach dysphagia, G tube HTN hx of CVA chronic encephalopathy functional quadriplegia severe protein calorie malnutrition hypothyroidism PLAN OF CARE LUIS vent support trach care pulmonary toilet baseline ABG this am and titrate settings as needed fup with CXR in am empiric abx, fup with cx, get stool for C dif ( hx of recurrent C dif in the past) ID consult NPO IVF GI consult PPI and Carafate monitor HH transfuse 1 u now, goal to keep Hgb above 7 anemia workup, stool OB, check CEA BP management with current regimen of CCB and optimize as needed continue levothyroxine, check TSH Venous Duplex BLE and if negative place SCD prealbumin pending dietary eval re supplements and further TF and rate when feeding started case discussed and evaluated by supervising physician Subjective Allergies: Coded Allergies: NO KNOWN DRUG ALLERGIES (Verified Allergy, Unknown, 09/11/16) Subjective fever resolved, leukocytosis persist no signs of respiratory distress on current settings tachycardia resolved HH dropped to 7.0/23-with repeated CBC Objective Last 24 Hour Vital Signs Date Time Temp Pulse Resp B/P Pulse Ox O2 Delivery O2 Flow Rate FiO2 04/15/17 08:02 98.8 89 18 146/63 100 Mechanical Ventilator 40 04/15/17 08:00 35 04/15/17 07:27 91 15 100 Mechanical Ventilator 15.0 40 04/15/17 07:19 40 04/15/17 07:19 90 20 100 Mechanical Ventilator 40 04/15/17 07:17 94 20 40 04/15/17 05:10 92 20 40 04/15/17 04:00 35 04/15/17 04:00 98.1 91 17 121/67 100 Mechanical Ventilator 40 04/15/17 03:43 98.9 04/15/17 03:38 98 04/15/17 02:44 108 23 40 04/15/17 00:42 108 23 40 04/15/17 00:31 109 23 100 Mechanical Ventilator 04/15/17 00:00 35 04/14/17 23:59 40 04/14/17 23:59 100 20 100 Mechanical Ventilator 40 04/14/17 23:34 112 04/14/17 23:27 99.5 106 24 115/69 100 Mechanical Ventilator 40 04/14/17 23:12 121 26 40 04/14/17 21:10 121 26 40 04/14/17 21:04 100.9 121 29 135/79 100 Mechanical Ventilator 40 04/14/17 20:40 101.5 132 18 159/72 100 40 04/14/17 20:30 101.5 132 18 159/72 100 40 04/14/17 19:23 101.5 134 35 161/65 100 40 04/14/17 19:23 119 26 40 04/14/17 18:30 40 04/14/17 17:00 98.8 112 28 126/81 98 40 04/14/17 16:40 116 28 40 04/14/17 16:24 98.8 102 20 115/65 100 Trach Collar Intake and Output 04/14/17 04/15/17 19:00 07:00 Intake Total 0 ml 770 ml Output Total 950 ml Balance 0 ml -180 ml Intake Oral 0 ml IV Total 770 ml Output Urine Total 950 ml Objective General Appearance: no apparent distress, lethargic, bedridden, thin, male, chronically ill looking on Vent AC 600-40%-14 Lines, tubes and drains: central line - femoral intact HEENT: normocephalic, atraumatic, anicteric Neck: trach - Portex#7, secretions brown, thin, large Respiratory/Chest: no respiratory distress, rhonchi - right - scattered Cardiovascular/Chest: normal peripheral pulses, regular rate and rhythm - SR on tele, no JVD, tachycardia, R femoral CL intact Abdomen: normal bowel sounds, non tender, soft, - G tube, Victor with clear urine Extremities: normal capillary refill, no edema Neurologic: lethargic, hemiplegia Musculoskeletal: spastic BLE Laboratory Tests 04/14/17 17:15: White Blood Count 29.0*H, Red Blood Count 3.44L, Hemoglobin 9.2L, Hematocrit 27.5L, Mean Corpuscular Volume 80, Mean Corpuscular Hemoglobin 26.7L, Mean Corpuscular Hemoglobin Concent 33.4, Red Cell Distribution Width 15.4H, Platelet Count 372, Mean Platelet Volume 6.6, Neutrophils (%) (Auto) , Lymphocytes (%) (Auto) , Monocytes (%) (Auto) , Eosinophils (%) (Auto) , Basophils (%) (Auto) , Differential Total Cells Counted 100, Neutrophils % ( Manual) 74, Lymphocytes % (Manual) 9L, Monocytes % (Manual) 6, Eosinophils % ( Manual) 4H, Basophils % (Manual) 1, Band Neutrophils 6, Platelet Estimate Adequate, Platelet Morphology Normal, Polychromasia 1+, Anisocytosis 1+, Microcytosis 1+, Prothrombin Time 10.0, Prothromb Time International Ratio 1.0, Activated Partial Thromboplast Time 26, Sodium Level 136, Potassium Level 3.5, Chloride Level 99, Carbon Dioxide Level 28, Anion Gap 9, Blood Urea Nitrogen 20 , Creatinine 0.7, Estimat Glomerular Filtration Rate > 60, Glucose Level 147H, Calcium Level 9.0, Total Bilirubin < 0.2, Aspartate Amino Transf (AST/SGOT) 15, Alanine Aminotransferase (ALT/SGPT) 10, Alkaline Phosphatase 75, Total Creatine Kinase 24L, Creatine Kinase MB 2.0, Creatine Kinase MB Relative Index 8.3, Troponin I < 0.30, Total Protein 6.8, Albumin 3.2L, Globulin 3.6, Albumin/ Globulin Ratio 0.8L, Lipase 52 04/14/17 17:30: Urine Color Pale yellow, Urine Appearance Slightly cloudy, Urine pH 6, Urine Specific [place] 1.015, Urine Protein 2+H, Urine Glucose (UA) Negative, Urine Ketones Negative, Urine Occult Blood 1+H, Urine Nitrite Negative, Urine Bilirubin Negative, Urine Urobilinogen Normal, Urine Leukocyte Esterase 3+H, Urine RBC 5-10H, Urine WBC 10-15H, Urine Squamous Epithelial Cells None, Urine Bacteria ModerateH, Urine Yeast ModerateH 04/14/17 19:30: Lactic Acid Level 2.00 04/15/17 03:50: White Blood Count 34.4*H, Red Blood Count 2.84L, Hemoglobin 7.1L, Hematocrit 23.3L, Mean Corpuscular Volume 82, Mean Corpuscular Hemoglobin 24.8L, Mean Corpuscular Hemoglobin Concent 30.3L, Red Cell Distribution Width 15.4H, Platelet Count 341, Mean Platelet Volume 7.4, Neutrophils (%) (Auto) , Lymphocytes (%) (Auto) , Monocytes (%) (Auto) , Eosinophils (%) (Auto) , Basophils (%) (Auto) , Differential Total Cells Counted 100, Neutrophils % ( Manual) 82H, Lymphocytes % (Manual) 6L, Monocytes % (Manual) 5, Eosinophils % ( Manual) 0, Basophils % (Manual) 0, Band Neutrophils 7, Platelet Estimate Adequate, Platelet Morphology Normal, Anisocytosis 1+, Prothrombin Time 10.5, Prothromb Time International Ratio 1.0, Activated Partial Thromboplast Time 27, Sodium Level 139, Potassium Level 3.7, Chloride Level 102, Carbon Dioxide Level 26, Anion Gap 11, Blood Urea Nitrogen 14, Creatinine 0.6L, Estimat Glomerular Filtration Rate > 60, Glucose Level 104, Calcium Level 8.4L, Total Bilirubin 0.3 , Aspartate Amino Transf (AST/SGOT) 16, Alanine Aminotransferase (ALT/SGPT) 10, Alkaline Phosphatase 66, Total Protein 5.9L, Albumin 2.8L, Globulin 3.1, Albumin /Globulin Ratio 0.9L, Hypochromasia 1+, Prealbumin [Pending], Thyroid Stimulating Hormone (TSH) 2.850 04/15/17 07:40: White Blood Count 31.2*H, Red Blood Count 2.81L, Hemoglobin 7.0L, Hematocrit 23.0L, Mean Corpuscular Volume 82, Mean Corpuscular Hemoglobin 25.0L, Mean Corpuscular Hemoglobin Concent 30.5L, Red Cell Distribution Width 15.6H, Platelet Count 299, Mean Platelet Volume 6.6, Neutrophils (%) (Auto) , Lymphocytes (%) (Auto) , Monocytes (%) (Auto) , Eosinophils (%) (Auto) , Basophils (%) (Auto) , Neutrophils % (Manual) [Pending], Lymphocytes % (Manual) [Pending], Platelet Estimate [Pending], Platelet Morphology [Pending] Current Medications Medications (Trade) Dose Ordered Sig/Wanda Route PRN Reason Start Time Stop Time Status Last Admin Dose Admin Acetaminophen (Tylenol) 650 mg Q4H PRN ORAL T>100.5 04/14/17 20:15 05/14/17 20:14 Acetaminophen (Tylenol) 650 mg Q4H PRN RECTAL Mild Pain (Pain Scale 1-3) 04/14/17 20:13 05/14/17 19:44 Al Hydroxide/Mg Hydroxide (Mylanta II) 30 ml Q6H PRN ORAL dyspepsia 04/14/17 20:15 05/14/17 20:14 Albuterol/ Ipratropium (DuoNeb 0.5-3(2.5)mg/3ml) 3 ml Q8HRT HHN 04/14/17 23:00 04/19/17 22:59 04/15/17 07:19 Amlodipine Besylate (Norvasc) 2.5 mg DAILY ORAL 04/15/17 09:00 05/15/17 08:59 Chlorhexidine Gluconate (Jasmin-Hex 2%) 1 applic QHS TOPIC 04/14/17 23:45 05/14/17 23:44 04/15/17 00:06 Clonidine HCl (Catapres) 0.1 mg Q6H PRN ORAL sbp above 160 04/14/17 21:15 05/14/17 21:14 Dextrose (Dextrose 50%) STAT PRN IV Hypoglycemia 04/14/17 20:15 05/14/17 20:14 Diphenhydramine HCl (Benadryl) 25 mg Q6H PRN ORAL Itching/Pruritis 04/14/17 20:15 05/14/17 20:14 Levothyroxine Sodium (Synthroid) 50 mcg DAILY GT 04/15/17 09:00 05/15/17 08:59 Morphine Sulfate (Morphine Sulfate) 2 mg Q4H PRN IVP Severe Pain (Pain Scale 7-10) 04/14/17 20:15 04/21/17 20:14 04/15/17 03:13 Nitroglycerin (Ntg) 0.4 mg Q5M X 3 DOSES PRN SL Prn Chest Pain 04/14/17 20:15 05/14/17 20:14 Ondansetron HCl (Zofran) 4 mg Q6H PRN IVP Nausea & Vomiting 04/14/17 20:15 05/14/17 20:14 Pantoprazole (Protonix) 40 mg DAILY IVP 04/15/17 09:00 05/15/17 08:59 Permethrin (Elimite) 1 applic ONCE ONCE TOPIC 04/15/17 09:00 04/15/17 09:01 Polyethylene Glycol (Miralax) 17 gm HSPRN PRN ORAL Constipation 04/14/17 21:00 05/14/17 20:59 Sodium Chloride (Sodium Chloride 1000ml bag) 1,000 ml @ 100 mls/hr Q10H IV 04/14/17 20:00 05/14/17 19:59 04/15/17 07:01 Sucralfate (Carafate) 1 gm FOUR TIMES A DAY GT 04/14/17 21:00 05/14/17 20:59 04/15/17 00:06 Jose ([facility])Amina NP Apr 15, 2017 08:21
[2017-04-15 08:23] LABS: ANISOCYTOSIS 1+; BAND NEUTROPHILS % (MANUAL) 3 % (0-8); BASOPHILS % (MANUAL) 0 % (0-2); EOSINOPHILS % (MANUAL) 1 % (0-3); HYPOCHROMASIA 1+; LYMPHOCYTES % (MANUAL) 10 % (20-45); NEUTROPHILS % (MANUAL) 82 % (45-75); PLATELET ESTIMATE ADEQUATE; PLATELET MORPHOLOGY NORMAL; TOTAL CELLS COUNTED 100
[2017-04-15 08:52] LABS: ABG BASE EXCESS 2.9; ABG PCO2 41.8 mmHg (35.0-45.0)
[2017-04-15 08:53] LABS: ABG ALLEN TEST POSITIVE
[2017-04-15] MEDS ORDERED: Cefepime HCl 1 GM in D5W 55 ML IVPB SCH (09:00)
[2017-04-15] MEDS ORDERED: Dyna-Hex 2% Top Sol 8oz TOPIC SCH (09:00)
[2017-04-15] MEDS: Pantoprazole Inj IVP SCH (09:03)
--- NOTE | 2017-04-15 09:15 | Diagnostic Imaging Report ---
Indication: ABD PAIN Technique: XRAY CHEST 1 V Comparison:04/06/17 Findings: Tracheostomy remains. There is some atelectasis or infiltrate in the right lower lung. Bilateral interstitial disease is present. No pleural fluid. Impression: Bilateral interstitial disease. Atelectasis or infiltrate in the right lower lung. Tracheostomy remains.
[2017-04-15] MEDS: Cefepime 2gm/D5W 110ml IV SCH ×4 (09:17→20:47)
[2017-04-15] MEDS: Vancomycin 1gm/D5W 275ml IVPB SCH ×4 (10:39→22:20)
--- NOTE | 2017-04-15 10:55 | Consultation ---
Consult Note Consult Note Patient lack capacity to do his own decision. patient has DPOA, not available on weekends to be reached ( legal guardian) , Patient with active bleeding, upper GI bleeding, witnessed hematemesis, HH dropped significantly from 9.7/27.5 on 04/14 to 7.0/ this am patine needs urgent blood transfusion Amina Garcia NP ([facility]) Apr 15, 2017 10:55
--- NOTE | 2017-04-15 11:55 | General Progress Note ---
Assessment/Plan Problem List: (1) residential resident ICD Codes: Z59.3 - Problems related to living in residential institution SNOMED: 948049714 (2) Severe erosive esophagitis (3) Respiratory failure, [id number] ICD Codes: J96.20 - Respiratory failure, [id number] SNOMED: 32492289 (4) HTN (hypertension) ICD Codes: I10 - HTN (hypertension) SNOMED: 80322244 (5) Gastritis ICD Codes: K29.70 - Gastritis SNOMED: 0926513 (6) Anemia ICD Codes: D64.9 - Anemia SNOMED: 814924397 (7) Iron deficiency ICD Codes: E61.1 - Iron deficiency SNOMED: 50965569 (8) Feeding by G-tube ICD Codes: Z93.1 - Gastrostomy status SNOMED: 419617247, 880128801 Assessment/Plan GTF ppi carafate refluc measures stool for C.diff Subjective ROS Limited/Unobtainable: No Allergies: Coded Allergies: NO KNOWN DRUG ALLERGIES (Verified Allergy, Unknown, 09/11/16) Objective Last 24 Hour Vital Signs Date Time Temp Pulse Resp B/P Pulse Ox O2 Delivery O2 Flow Rate FiO2 04/15/17 10:42 99 20 35 04/15/17 09:03 98 146/63 04/15/17 08:53 98 22 35 04/15/17 08:02 98.8 89 18 146/63 100 Mechanical Ventilator 40 04/15/17 08:00 35 04/15/17 08:00 93 04/15/17 07:27 91 15 100 Mechanical Ventilator 15.0 40 04/15/17 07:19 40 04/15/17 07:19 90 20 100 Mechanical Ventilator 40 04/15/17 07:17 94 20 40 04/15/17 05:10 92 20 40 04/15/17 04:00 35 04/15/17 04:00 98.1 91 17 121/67 100 Mechanical Ventilator 40 04/15/17 03:43 98.9 04/15/17 03:38 98 04/15/17 02:44 108 23 40 04/15/17 00:42 108 23 40 04/15/17 00:31 109 23 100 Mechanical Ventilator 04/15/17 00:00 35 04/14/17 23:59 40 04/14/17 23:59 100 20 100 Mechanical Ventilator 40 04/14/17 23:34 112 04/14/17 23:27 99.5 106 24 115/69 100 Mechanical Ventilator 40 04/14/17 23:12 121 26 40 04/14/17 21:10 121 26 40 04/14/17 21:04 100.9 121 29 135/79 100 Mechanical Ventilator 40 04/14/17 20:40 101.5 132 18 159/72 100 40 04/14/17 20:30 101.5 132 18 159/72 100 40 04/14/17 19:23 101.5 134 35 161/65 100 40 04/14/17 19:23 119 26 40 04/14/17 18:30 40 04/14/17 17:00 98.8 112 28 126/81 98 40 04/14/17 16:40 116 28 40 04/14/17 16:24 98.8 102 20 115/65 100 Trach Collar Intake and Output 04/14/17 04/15/17 19:00 07:00 Intake Total 0 ml 770 ml Output Total 950 ml Balance 0 ml -180 ml Intake Oral 0 ml IV Total 770 ml Output Urine Total 950 ml Laboratory Tests 04/14/17 17:15: White Blood Count 29.0*H, Red Blood Count 3.44L, Hemoglobin 9.2L, Hematocrit 27.5L, Mean Corpuscular Volume 80, Mean Corpuscular Hemoglobin 26.7L, Mean Corpuscular Hemoglobin Concent 33.4, Red Cell Distribution Width 15.4H, Platelet Count 372, Mean Platelet Volume 6.6, Neutrophils (%) (Auto) , Lymphocytes (%) (Auto) , Monocytes (%) (Auto) , Eosinophils (%) (Auto) , Basophils (%) (Auto) , Differential Total Cells Counted 100, Neutrophils % ( Manual) 74, Lymphocytes % (Manual) 9L, Monocytes % (Manual) 6, Eosinophils % ( Manual) 4H, Basophils % (Manual) 1, Band Neutrophils 6, Platelet Estimate Adequate, Platelet Morphology Normal, Polychromasia 1+, Anisocytosis 1+, Microcytosis 1+, Prothrombin Time 10.0, Prothromb Time International Ratio 1.0, Activated Partial Thromboplast Time 26, Sodium Level 136, Potassium Level 3.5, Chloride Level 99, Carbon Dioxide Level 28, Anion Gap 9, Blood Urea Nitrogen 20 , Creatinine 0.7, Estimat Glomerular Filtration Rate > 60, Glucose Level 147H, Calcium Level 9.0, Total Bilirubin < 0.2, Aspartate Amino Transf (AST/SGOT) 15, Alanine Aminotransferase (ALT/SGPT) 10, Alkaline Phosphatase 75, Total Creatine Kinase 24L, Creatine Kinase MB 2.0, Creatine Kinase MB Relative Index 8.3, Troponin I < 0.30, Total Protein 6.8, Albumin 3.2L, Globulin 3.6, Albumin/ Globulin Ratio 0.8L, Lipase 52 04/14/17 17:30: Urine Color Pale yellow, Urine Appearance Slightly cloudy, Urine pH 6, Urine Specific [place] 1.015, Urine Protein 2+H, Urine Glucose (UA) Negative, Urine Ketones Negative, Urine Occult Blood 1+H, Urine Nitrite Negative, Urine Bilirubin Negative, Urine Urobilinogen Normal, Urine Leukocyte Esterase 3+H, Urine RBC 5-10H, Urine WBC 10-15H, Urine Squamous Epithelial Cells None, Urine Bacteria ModerateH, Urine Yeast ModerateH 04/14/17 19:30: Lactic Acid Level 2.00 04/15/17 03:50: White Blood Count 34.4*H, Red Blood Count 2.84L, Hemoglobin 7.1L, Hematocrit 23.3L, Mean Corpuscular Volume 82, Mean Corpuscular Hemoglobin 24.8L, Mean Corpuscular Hemoglobin Concent 30.3L, Red Cell Distribution Width 15.4H, Platelet Count 341, Mean Platelet Volume 7.4, Neutrophils (%) (Auto) , Lymphocytes (%) (Auto) , Monocytes (%) (Auto) , Eosinophils (%) (Auto) , Basophils (%) (Auto) , Differential Total Cells Counted 100, Neutrophils % ( Manual) 82H, Lymphocytes % (Manual) 6L, Monocytes % (Manual) 5, Eosinophils % ( Manual) 0, Basophils % (Manual) 0, Band Neutrophils 7, Platelet Estimate Adequate, Platelet Morphology Normal, Anisocytosis 1+, Prothrombin Time 10.5, Prothromb Time International Ratio 1.0, Activated Partial Thromboplast Time 27, Sodium Level 139, Potassium Level 3.7, Chloride Level 102, Carbon Dioxide Level 26, Anion Gap 11, Blood Urea Nitrogen 14, Creatinine 0.6L, Estimat Glomerular Filtration Rate > 60, Glucose Level 104, Calcium Level 8.4L, Total Bilirubin 0.3 , Aspartate Amino Transf (AST/SGOT) 16, Alanine Aminotransferase (ALT/SGPT) 10, Alkaline Phosphatase 66, Total Protein 5.9L, Albumin 2.8L, Globulin 3.1, Albumin /Globulin Ratio 0.9L, Hypochromasia 1+, Iron Level 19L, Total Iron Binding Capacity 220L, Percent Iron Saturation 9L, Unsaturated Iron Binding 201, Ferritin 38, Prealbumin [Pending], Carcinoembryonic Antigen 2.4, Vitamin B12 Level 665, Folate [Pending], Thyroid Stimulating Hormone (TSH) 2.850 04/15/17 07:40: White Blood Count 31.2*H, Red Blood Count 2.81L, Hemoglobin 7.0L, Hematocrit 23.0L, Mean Corpuscular Volume 82, Mean Corpuscular Hemoglobin 25.0L, Mean Corpuscular Hemoglobin Concent 30.5L, Red Cell Distribution Width 15.6H, Platelet Count 299, Mean Platelet Volume 6.6, Neutrophils (%) (Auto) , Lymphocytes (%) (Auto) , Monocytes (%) (Auto) , Eosinophils (%) (Auto) , Basophils (%) (Auto) , Differential Total Cells Counted 100, Neutrophils % ( Manual) 82H, Lymphocytes % (Manual) 10L, Monocytes % (Manual) 4, Eosinophils % ( Manual) 1, Basophils % (Manual) 0, Band Neutrophils 3, Platelet Estimate Adequate, Platelet Morphology Normal, Hypochromasia 1+, Anisocytosis 1+ 04/15/17 08:44: Arterial Blood pH 7.435, Arterial Blood Partial Pressure CO2 41.8, Arterial Blood Partial Pressure O2 114.7H, Arterial Blood HCO3 27.4H, Arterial Blood Oxygen Saturation 98.0, Arterial Blood Base Excess 2.9, Ger Test Positive Height (Feet): 5 Height (Inches): 6.00 Weight (Pounds): 138 General Appearance: lethargic EENT: normal ENT inspection Neck: supple Cardiovascular: normal rate Respiratory/Chest: decreased breath sounds Abdomen: normal bowel sounds, non tender, soft Extremities: non-tender FRAN GALAN Apr 15, 2017 11:55
[2017-04-15 12:00] VITALS: BP 131/62
[2017-04-15] MEDS: metroNIDAZOLE 500mg 100 ML IVPB SCH ×2 (13:28→22:20)
--- NOTE | 2017-04-15 15:11 | Infectious Diseases Prog Note ---
Infectious Disease Consult Infectious Disease Consult Infectious Disease Consult INFECTIOUS DISEASE CONSULTATION DATE OF CONSULTATION: CONSULTING PHYSICIAN: Donato Perez M.D., [facility], [facility] Covering for Dr. Daniels REFERRING PHYSICIAN: Dr Lourdes Keating REASON FOR CONSULTATION: Severe Leukocytosis, fever HISTORY OF PRESENT ILLNESS: 66 y/old white male alf resident with PMH significant for VDRF/ tracheostomy, dysphagia, G tube, HTN, hx of CVA, seizure disorder, hypothyroidism, dementia, chronic encephalopathy, prior h/o recurrent C diff, severe esophagitis admitted for UGIB, found to have fever to 101.5F yesterday w/ o hypotension, severe leukocytosis to 34.4 with left shift, and a CXR with RLL infiltrate consistent with HCAP/VAP. u/a negative for pyuria with scant bacteria obtained when petty placed, ucx so far ngtd, and pending blood cx, stool C diff, given a dose of zosyn in ER then started on IV cefepime, vancomycin, and flagyl empirically. upon my evaluation of patient now, he looks to have just dislodged his G tube. R femoral CVC was placed in the ER. ROS unable to be obtained as patient is non communicative on vent/trach. recent admission at the end of March 2017 for UGIB with erosive esophagitis and LLL HCAP for which he received 7 days IV zosyn completed on 04/08/17 with improvement of leukocytosis at that time from 27.4 down to 12.5 although tends to flucutuate widely. PAST MEDICAL HISTORY: recurrent UTI recurrent VAP/HCAP UGIB mild gastritis s/p EGD in 2016--H pylori path negative erosive esophagitis Ventilator-dependent respiratory failure h/o PEG and trach placement chronic encephalopathy/dementia h/o C diff MDRO colonized (MRSA, VRE, KPC, and MDR-ACB) Past Surgical History: as above ALLERGIES: No known drug allergies. ANTIBIOTICS: Home and hospitalized medications reviewed. tylenol prn [place] norvasc 2.5mg daily chlorhexidine gluconate benadryl prn synthroid 50mcg daily duoneb morphine prn zofran prn protonix 40mg iv daily permethin 5% topical x1 04/15/17 miralax prn sucralfate QID abx: IV vanomcyin IV cefepime IV flagyl SOCIAL HISTORY: lives in nursing facility FAMILY HISTORY: Noncontributory REVIEW OF SYSTEMS: 11 point ROS negative except for that mentioned in HPI above. PHYSICAL EXAM: VITAL SIGNS: Tm 101.5F Tc 98.9F bp 131/62 hr 91 rr 21 on mech vent through trach FIO2 35%. minimal trach secretions GEN: awake, alert, doesn't respond to commands, non toxic appearing HEENT: Mild pale conjunctiva. oral mucosa dry, pharynx w/o exudate or effusion. No icterus. Head normocephalic, neck supple. NECK: No cervical LAD CHEST: Clear to auscultation bilaterally except diminished breath sounds at R lung base. HEART: S1 and S2, no murmurs, no rubs. ABDOMEN: soft, non tender, non distended, normoactive bowel sounds. L sided G -tube has been completely dislodged. site is without surrounding cellulitis EXTREMITIES: No cyanosis, no clubbing, no edema. NEUROLOGIC: Awake, alert, no focal neurologic motor deficits. : petty in place draining clear yellow urine LYMPH: no LAD RECTAL: deferred SKIN: scattered non vesicular rash, mild, primarily on abdomen, spares intertriginous regions not c/w scabies LABORATORY AND DIAGNOSTIC DATA: WBC 31.2, segs 82%, hgb 7, plt 299, eos 1% Na 139, k 3.7, cl 102, bun 14, cr 0.6, gluc 104, lactic acid 2.0, uric acid 3.8 , ca 8.4, iron 19, 9% iron sat ferritin 38 t bili 0.3, ast 16, alt 10, alk phos 66, CK 24, trop neg prot 6.9, alb 2.8, lipase 52, CEA 2.4, b12 665, TSH 2.85 PTT 27, PT 10.5 micro: u/a 1.015/1_ blood/3+ LE/10-15 WBC/moderate bacteria/mod yeast pending blood cx x2, pending C diff stool RADIOLOGY: PCXR: bilateral interstitial edema. RLL infiltrate. trach in place ASSESSMENT AND PLAN ASSESSMENT: 66 y/o vent/trach dependent alf resident, h/o MDRO, admitted with UGBI and a RLL pneumonia and possible low grade UTI, now with petty in place. he has a h/o profound reactive leukocytosis for mild infections (eg. pna, uti), and there could be a reactive component due to the UGIB, but given G tube dislodged, h/o erosive esophagitis, consider intraabdominal source. He'll have adequate empiric gnr/anaerobic coverage with current cefepime, vancomycin, and flagyl, and he's now defervesced which is somewhat reassuring, so will start with abd x ray to r/o free air, and if not responding over the next 24-[address] a/p. note that his LFTs are essentially normal other than his hypoalbuminemia. 1) RLL pneumonia, VAP 2) possible UTI 3) sepsis 4) severe leukocytosis w/ left shift 5) fever--resolved 6) h/o recurrent aspiration pna/HCAP h/o GGS, MDR-ACB, KPC-Klebsiella pneumoniae, P. stuartii 7) h/o recurrent UTI --h/o CRE-K. pneumoniae, M. morganii, P. mirabilis, ESBL(+) K. pneumoniae --h/o left non-obstructive nephrolithiasis 8) r/o intraabominal source of severe leukocytosis 9) mild eczematous rash, not consistent with scabies, s/p permethrin x1 earlier today alf resident severe erosive esophagitis, c/b active UGIB requiring PRBC transfution irone def anemia G tube dislodged protein calorie malnutrition MDRO colnoized (MRSA, VRE, KPC, MDR-ACB) chrnoic VDRF s/p trach, PEG-->GFT, multiple revisions/replacements chronic encephalopathy/dementia NKDA PLAN: -continue empiric IV cefepime, vanc, flagyl D#2 of therapy s/p zosyn in ER last night -f/u blood cx and C diff on stool -f/u urine cx, so far ngtd -KUB now, low threshold for CT a/p -monitor CBC, temps -monitor BMP -monitor CXR -contact isolation -vent support, trach care, aspiration precautions Thank you for this consultation. Will continue to follow. Covering for Dr. Daniels, please call me with questions, Donato Perez M.D. Apr 15, 2017 15:11
[2017-04-15 16:00] VITALS: BP 123/60
--- NOTE | 2017-04-15 16:19 | Cardiology Report ---
APPROVED REPORT EKG Measurement Heart [id number] Sinus tachycardia with premature atrial complexes Otherwise normal ECG
[2017-04-15 19:25] VITALS: BP 145/57
[2017-04-15] MEDS ORDERED: Iron Sucrose 100 MG in NS 55 ML IVPB SCH (21:00)
[2017-04-15] MEDS ORDERED: Tubing IV Secondary IV ONE (21:58)
[2017-04-15] MEDS ORDERED: Tubing Blood Filter IV ONE (21:58)
[2017-04-15] MEDS ORDERED: NS 275ml ONE (21:58)
[2017-04-15 23:49] VITALS: BP 106/68
[2017-04-16 03:56] VITALS: BP 122/81
[2017-04-16] MEDS: metroNIDAZOLE 500mg 100 ML IVPB SCH ×3 (05:33→22:16)
[2017-04-16 05:35] LABS: CALCIUM 8.8 mg/dL (8.6-10.2); CARBON DIOXIDE 26 mEQ/L (20-30); CREATININE 0.5 mg/dL (0.7-1.2); GLOMERULAR FILTRATION RATE > 60 mL/min (>60); HEMOLYSIS 0
[2017-04-16 06:05] LABS: BASOPHILS % (AUTO) 0.5 % (0.0-2.0); EOSINOPHILS % (AUTO) 8.3 % (0.0-3.0); LYMPHOCYTES % (AUTO) 13.3 % (20.0-45.0); MEAN CORPUSCULAR HEMOGLOBIN 27.8 PG (27.0-31.0); MEAN CORPUSCULAR HGB CONC 33.3 G/DL (32.0-36.0); MEAN CORPUSCULAR VOLUME 84 FL (80-99); MEAN PLATELET VOLUME 7.6 FL (6.5-10.1); MONOCYTES % (AUTO) 7.8 % (1.0-10.0); NEUTROPHILS % (AUTO) 70.1 % (45.0-75.0); PLATELET COUNT 298 K/UL (150-450); RED BLOOD COUNT 2.86 M/UL (4.70-6.10); RED CELL DISTRIBUTION WIDTH 15.3 % (11.6-14.8); WHITE BLOOD COUNT 16.6 K/UL (4.8-10.8)
[2017-04-16 06:24] LABS: ANION GAP 9 (5-15); CHLORIDE 102 mEQ/L (98-107); POTASSIUM 3.9 mEQ/L (3.4-4.9); SODIUM 137 mEQ/L (135-145)
[2017-04-16] MEDS: DuoNeb 0.5-3(2.5)mg/3ml neb HHN SCH ×3 (06:58→22:54)
[2017-04-16 08:00] VITALS: BP 117/74
[2017-04-16] MEDS ORDERED: Tubing IV Secondary IV ONE (08:19)
[2017-04-16] MEDS ORDERED: NS 275ml ONE (08:19)
[2017-04-16] MEDS: Cefepime 2gm/D5W 110ml IV SCH ×4 (08:23→21:33)
[2017-04-16] MEDS: Pantoprazole Inj IVP SCH (08:24)
[2017-04-16] MEDS: Sucralfate 1gm tab GT SCH ×4 (09:00→21:25)
[2017-04-16] MEDS: Vancomycin 1gm/D5W 275ml IVPB SCH ×4 (09:29→22:16)
[2017-04-16] MEDS: Morphine Sulfate 2mg/ml Inj IVP PRN (09:39)
--- NOTE | 2017-04-16 11:12 | GI Progress Note ---
Assessment/Plan Problems: (1) Gastrostomy tube dependent ICD Codes: Z93.1 - Gastrostomy tube dependent SNOMED: 846216556 (2) Hypoalbuminemia ICD Codes: E88.09 - Other disorders of plasma-protein metabolism, not elsewhere classified SNOMED: 355478116 (3) C. difficile colitis ICD Codes: A04.7 - C. difficile colitis SNOMED: 474150704 (4) Dysphagia ICD Codes: R13.10 - Dysphagia, unspecified SNOMED: 19709430, 281627839 (5) Malfunction of gastrostomy tube ICD Codes: K94.23 - Gastrostomy malfunction SNOMED: 083114720 (6) Anemia ICD Codes: D64.9 - Anemia, unspecified SNOMED: 690626279 (7) Protein-calorie malnutrition, severe ICD Codes: E43 - Unspecified severe protein-calorie malnutrition SNOMED: 612044657 (8) Esophagitis ICD Codes: K20.9 - Esophagitis SNOMED: 86487286 Status: stable, unchanged Status Narrative Discussed with Dr. Wilson. Assessment/Plan GT malfunction >> changed to GT 20fr, ok to use GTFs per dietary iron deficient, venofer prn transfusions ppi carafate reflux measures stool for C.diff fu labs Subjective Subjective limited Objective Last 24 Hour Vital Signs Date Time Temp Pulse Resp B/P Pulse Ox O2 Delivery O2 Flow Rate FiO2 04/16/17 09:29 85 24 35 04/16/17 09:00 79 117/74 04/16/17 08:00 79 04/16/17 08:00 97.9 79 20 117/74 100 Mechanical Ventilator 35 04/16/17 08:00 35 04/16/17 07:00 90 14 100 Mechanical Ventilator 35 04/16/17 06:52 88 28 35 04/16/17 06:50 88 14 99 Mechanical Ventilator 35 04/16/17 06:50 35 04/16/17 05:02 82 21 35 04/16/17 04:00 35 04/16/17 03:56 98.3 82 22 122/81 100 Mechanical Ventilator 35 04/16/17 03:40 89 04/16/17 03:17 78 22 35 04/16/17 01:09 67 19 35 04/16/17 01:08 85 17 100 Mechanical Ventilator 35 04/16/17 00:00 35 04/16/17 00:00 81 04/15/17 23:49 98.1 84 16 106/68 100 Mechanical Ventilator 35 04/15/17 22:59 35 04/15/17 22:58 76 19 100 Mechanical Ventilator 35 04/15/17 22:54 67 19 35 04/15/17 21:54 76 19 35 04/15/17 21:19 98.1 04/15/17 20:16 83 04/15/17 20:00 35 04/15/17 19:25 98.1 93 24 145/57 99 Mechanical Ventilator 35 04/15/17 18:51 83 24 35 04/15/17 16:44 95 25 35 04/15/17 16:00 88 04/15/17 16:00 35 04/15/17 16:00 98.9 92 20 123/60 99 Mechanical Ventilator 35 04/15/17 15:04 93 22 35 04/15/17 15:03 93 22 98 Mechanical Ventilator 15.0 35 04/15/17 14:54 35 04/15/17 14:54 91 21 99 Mechanical Ventilator 35 04/15/17 12:45 91 21 35 04/15/17 12:00 98.9 86 22 131/62 100 Mechanical Ventilator 35 04/15/17 12:00 35 04/15/17 12:00 83 Intake and Output 04/15/17 04/16/17 19:00 07:00 Intake Total 1385.000 ml 1160.000 ml Output Total 1000 ml 1200 ml Balance 385.000 ml -40.000 ml IV Total 1085.000 ml 1160.000 ml Blood Product 300 ml Output Urine Total 1000 ml 1200 ml # Bowel Movements 1 Laboratory Tests Test 04/16/17 04:00 White Blood Count 16.6 K/UL (4.8-10.8) H Red Blood Count 2.86 M/UL (4.70-6.10) L Hemoglobin 8.0 G/DL (14.2-18.0) L Hematocrit 23.9 % (42.0-52.0) L Mean Corpuscular Volume 84 FL (80-99) Mean Corpuscular Hemoglobin 27.8 PG (27.0-31.0) Mean Corpuscular Hemoglobin Concent 33.3 G/DL (32.0-36.0) Red Cell Distribution Width 15.3 % (11.6-14.8) H Platelet Count 298 K/UL (150-450) Mean Platelet Volume 7.6 FL (6.5-10.1) Neutrophils (%) (Auto) 70.1 % (45.0-75.0) Lymphocytes (%) (Auto) 13.3 % (20.0-45.0) L Monocytes (%) (Auto) 7.8 % (1.0-10.0) Eosinophils (%) (Auto) 8.3 % (0.0-3.0) H Basophils (%) (Auto) 0.5 % (0.0-2.0) Sodium Level 137 mEQ/L (135-145) Potassium Level 3.9 mEQ/L (3.4-4.9) Chloride Level 102 mEQ/L (98-107) Carbon Dioxide Level 26 mEQ/L (20-30) Anion Gap 9 (5-15) Blood Urea Nitrogen 10 mg/dL (7-23) Creatinine 0.5 mg/dL (0.7-1.2) L Estimat Glomerular Filtration Rate > 60 mL/min (>60) Glucose Level 95 mg/dL (74-106) Calcium Level 8.8 mg/dL (8.6-10.2) Height (Feet): 5 Height (Inches): 6.00 Weight (Pounds): 138 General Appearance: no apparent distress, alert Cardiovascular: normal rate Respiratory/Chest: other - mech vent Abdominal Exam: GT site - c/d/i Arabella Quesada N.P. Apr 16, 2017 11:11
[2017-04-16 11:54] VITALS: BP 121/69
--- NOTE | 2017-04-16 12:16 | Diagnostic Imaging Report ---
Indication: Dyspnea Comparison: 04/14/17 A single view chest radiograph was obtained. Findings: Vascular prominence appears slightly worse accounting for differences in lung volume. Interstitial edema again demonstrated. Tracheostomy again noted. Impression: Evidence for worsening CHF/interstitial edema. Please correlate clinically
--- NOTE | 2017-04-16 12:27 | Pulmonology Progress Note ---
Assessment/Plan Problems: (1) Respiratory failure, [id number] (2) Gastrostomy tube dependent (3) Aspiration pneumonia (4) UGIB (upper gastrointestinal bleed) (5) Debility (6) Protein-calorie malnutrition, severe (7) Malfunction of gastrostomy tube Respiratory: monitor respiratory rate, adjust FIO2 Cardiac: continue pressors, stop pressors, continue to monitor HR/BP, d/c senior private client advisor Renal: keep IV fluid, increase IV fluid Infectious Disease: continue antibiotics, add antibiotics Gastrointestinal: hold feedings, adjust feedings, start feedings Endocrine: check TSH, start insulin drip Hematologic: monitor H/H, transfuse if hgb<8.5 Neurologic: PRN Morphine, keep patient comfortable Affect: PRN ativan Notes Reviewed: hearing stenographer, 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 with: nurses, consultants, telephonic case manager Subjective ROS Limited/Unobtainable: No Constitutional: Reports: no symptoms HEENT: Repors: no symptoms Respiratory: Reports: no symptoms Allergies: Coded Allergies: NO KNOWN DRUG ALLERGIES (Verified Allergy, Unknown, 09/11/16) Objective Last 24 Hour Vital Signs Date Time Temp Pulse Resp B/P Pulse Ox O2 Delivery O2 Flow Rate FiO2 04/16/17 11:54 35 04/16/17 11:54 79 04/16/17 11:54 98.3 79 22 121/69 100 Mechanical Ventilator 35 04/16/17 11:26 91 21 35 04/16/17 09:29 85 24 35 04/16/17 09:00 79 117/74 04/16/17 08:00 79 04/16/17 08:00 97.9 79 20 117/74 100 Mechanical Ventilator 04/16/17 08:00 35 04/16/17 07:00 90 14 100 Mechanical Ventilator 35 04/16/17 06:52 88 28 35 04/16/17 06:50 88 14 99 Mechanical Ventilator 35 04/16/17 06:50 35 04/16/17 05:02 82 21 35 04/16/17 04:00 35 04/16/17 03:56 98.3 82 22 122/81 100 Mechanical Ventilator 04/16/17 03:40 89 04/16/17 03:17 78 22 35 04/16/17 01:09 67 19 35 04/16/17 01:08 85 17 100 Mechanical Ventilator 04/16/17 00:00 35 04/16/17 00:00 81 04/15/17 23:49 98.1 84 16 106/68 100 Mechanical Ventilator 35 04/15/17 22:59 35 04/15/17 22:58 76 19 100 Mechanical Ventilator 35 04/15/17 22:54 67 19 35 04/15/17 21:54 76 19 35 04/15/17 21:19 98.1 04/15/17 20:16 83 04/15/17 20:00 35 04/15/17 19:25 98.1 93 24 145/57 99 Mechanical Ventilator 35 04/15/17 18:51 83 24 35 04/15/17 16:44 95 25 35 04/15/17 16:00 88 04/15/17 16:00 35 04/15/17 16:00 98.9 92 20 123/60 99 Mechanical Ventilator 35 04/15/17 15:04 93 22 35 04/15/17 15:03 93 22 98 Mechanical Ventilator 15.0 35 04/15/17 14:54 35 04/15/17 14:54 91 21 99 Mechanical Ventilator 35 04/15/17 12:45 91 21 35 Intake and Output 04/15/17 04/16/17 19:00 07:00 Intake Total 1385.000 ml 1160.000 ml Output Total 1000 ml 1200 ml Balance 385.000 ml -40.000 ml IV Total 1085.000 ml 1160.000 ml Blood Product 300 ml Output Urine Total 1000 ml 1200 ml # Bowel Movements 1 General Appearance: cachetic HEENT: normocephalic, atraumatic Respiratory/Chest: chest wall non-tender, lungs clear Cardiovascular: normal peripheral pulses, normal rate Abdomen: normal bowel sounds, soft, non tender Genitourinary: normal external genitalia Extremities: no cyanosis Skin: no rash, no ulcers Neurologic/Psychiatric: truss assembler II-XII grossly normal Microbiology Date/Time Source Procedure Growth Status 04/14/17 18:15 Blood Blood Culture - Preliminary NO GROWTH AFTER 24 HOURS Resulted 04/14/17 18:00 Blood Blood Culture - Preliminary NO GROWTH AFTER 24 HOURS Resulted 04/14/17 17:30 Urine,Clean Catch Urine Culture - Preliminary YEAST Resulted Laboratory Tests 04/16/17 04:00: White Blood Count 16.6H, Red Blood Count 2.86L, Hemoglobin 8.0L, Hematocrit 23.9L, Mean Corpuscular Volume 84, Mean Corpuscular Hemoglobin 27.8, Mean Corpuscular Hemoglobin Concent 33.3, Red Cell Distribution Width 15.3H, Platelet Count 298, Mean Platelet Volume 7.6, Neutrophils (%) (Auto) 70.1, Lymphocytes (%) (Auto) 13.3L, Monocytes (%) (Auto) 7.8, Eosinophils (%) (Auto) 8.3H, Basophils (%) (Auto) 0.5, Sodium Level 137, Potassium Level 3.9, Chloride Level 102, Carbon Dioxide Level 26, Anion Gap 9, Blood Urea Nitrogen 10, Creatinine 0.5L, Estimat Glomerular Filtration Rate > 60, Glucose Level 95, Calcium Level 8.8 Current Medications Medications (Trade) Dose Ordered Sig/Wanda Route PRN Reason Start Time Stop Time Status Last Admin Dose Admin Acetaminophen (Tylenol) 650 mg Q4H PRN ORAL T>100.5 04/14/17 20:15 05/14/17 20:14 Acetaminophen (Tylenol) 650 mg Q4H PRN RECTAL Mild Pain (Pain Scale 1-3) 04/14/17 20:13 05/14/17 19:44 Al Hydroxide/Mg Hydroxide (Mylanta II) 30 ml Q6H PRN ORAL dyspepsia 04/14/17 20:15 05/14/17 20:14 Albuterol/ Ipratropium (DuoNeb 0.5-3(2.5)mg/3ml) 3 ml Q8HRT HHN 04/14/17 23:00 04/19/17 22:59 04/16/17 06:58 Amlodipine Besylate (Norvasc) 2.5 mg DAILY ORAL 04/15/17 09:00 05/15/17 08:59 04/15/17 09:03 Cefepime HCl 2 gm/ Dextrose 110 ml @ 220 mls/hr EVERY 12 HOURS IV 04/15/17 09:00 04/22/17 08:59 04/16/17 08:23 Chlorhexidine Gluconate 1 applic 1 applic QHS TOPIC 04/14/17 23:45 05/14/17 23:44 04/15/17 20:47 Clonidine HCl (Catapres) 0.1 mg Q6H PRN ORAL sbp above 160 04/14/17 21:15 05/14/17 21:14 Dextrose (Dextrose 50%) STAT PRN IV Hypoglycemia 04/14/17 20:15 05/14/17 20:14 Diphenhydramine HCl (Benadryl) 25 mg Q6H PRN ORAL Itching/Pruritis 04/14/17 20:15 05/14/17 20:14 Iron Sucrose/ Sodium Chloride (Venofer/Sodium Chloride) 60 ml @ 240 mls/hr BEDTIME IVPB 04/16/17 21:00 04/20/17 21:14 Levothyroxine Sodium (Synthroid) 50 mcg DAILY GT 04/15/17 09:00 05/15/17 08:59 04/15/17 09:02 Metronidazole (Flagyl) 100 ml @ 100 mls/hr Q8HR IVPB 04/15/17 14:00 04/22/17 13:59 04/16/17 05:33 Morphine Sulfate (Morphine Sulfate) 2 mg Q4H PRN IVP Severe Pain (Pain Scale 7-10) 04/14/17 20:15 04/21/17 20:14 04/16/17 09:39 Nitroglycerin (Ntg) 0.4 mg Q5M X 3 DOSES PRN SL Prn Chest Pain 04/14/17 20:15 05/14/17 20:14 Ondansetron HCl (Zofran) 4 mg Q6H PRN IVP Nausea & Vomiting 04/14/17 20:15 05/14/17 20:14 Pantoprazole (Protonix) 40 mg DAILY IVP 04/15/17 09:00 05/15/17 08:59 04/16/17 08:24 Polyethylene Glycol (Miralax) 17 gm HSPRN PRN ORAL Constipation 04/14/17 21:00 05/14/17 20:59 Sodium Chloride (Sodium Chloride 1000ml bag) 1,000 ml @ 100 mls/hr Q10H IV 04/14/17 20:00 05/14/17 19:59 04/16/17 02:19 Sucralfate (Carafate) 1 gm FOUR TIMES A DAY GT 04/14/17 21:00 05/14/17 20:59 04/15/17 13:28 Vancomycin HCl 1 ea 1 ea DAILY PRN MISC Per rx protocol 04/15/17 08:30 05/15/17 08:29 Vancomycin HCl 1 gm/Dextrose 275 ml @ 183.708 mls/hr Q12HR@1000,2200 IVPB 04/15/17 10:00 04/20/17 09:59 04/16/17 09:29 MIKAYLA WILLOUGHBY Apr 16, 2017 12:27
--- NOTE | 2017-04-16 13:44 | Infectious Diseases Prog Note ---
Assessment/Plan Assessment/Plan ASSESSMENT: 66 y/o vent/trach dependent [facility] resident, h/o MDRO, admitted with UGIB and a RLL pneumonia and low grade Tea UTI confirmed today , now with petty in place. he has a h/o profound reactive leukocytosis for mild infections (eg. pna, uti), and there could be a reactive component due to the UGIB, but given G tube dislodged, h/o erosive esophagitis, consider intraabdominal source as a possibility. He'll have adequate empiric gnr/ anaerobic coverage with current cefepime, vancomycin, and flagyl, and he's now defervesced abd x ray unremarkable. given his clinical response and evidence of RLL pneumonia and tea UTI, as long as he continues to improve wouldn't recommend CT a/p at this time. 1) RLL pneumonia, VAP. some component of volume overload on f/u CXR 2) Tea UTI 3) sepsis 4) severe leukocytosis w/ left shift, improved from 31.2 down to 16.6 o/n 5) fever--resolved 6) h/o recurrent aspiration pna/HCAP h/o GGS, MDR-ACB, KPC-Klebsiella pneumoniae, P. stuartii 7) h/o recurrent UTI --h/o CRE-K. pneumoniae, M. morganii, P. mirabilis, ESBL(+) K. 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 C diff stool not yet sent. If confirmed C diff negative, will d /c flagyl. -f/u urine cx final result -start fluconazole 200mg iv q24hr D#1/10 -monitor CBC, temps -monitor BMP -monitor CXR -contact isolation -vent support, trach care, aspiration precautions -R groin CVC care Subjective ROS Limited/Unobtainable: Yes Allergies: Coded Allergies: NO KNOWN DRUG ALLERGIES (Verified Allergy, Unknown, 09/11/16) Subjective defervesced for 24 hrs. G tube replaced. Objective Vital Signs Last 24 Hour Vital Signs Date Time Temp Pulse Resp B/P Pulse Ox O2 Delivery O2 Flow Rate FiO2 04/16/17 11:54 35 04/16/17 11:54 79 04/16/17 11:54 98.3 79 22 121/69 100 Mechanical Ventilator 35 04/16/17 11:26 91 21 35 04/16/17 09:29 85 24 35 04/16/17 09:00 79 117/74 04/16/17 08:00 79 04/16/17 08:00 97.9 79 20 117/74 100 Mechanical Ventilator 35 04/16/17 08:00 35 04/16/17 07:00 90 14 100 Mechanical Ventilator 35 04/16/17 06:52 88 28 35 04/16/17 06:50 88 14 99 Mechanical Ventilator 35 04/16/17 06:50 35 04/16/17 05:02 82 21 35 04/16/17 04:00 35 04/16/17 03:56 98.3 82 22 122/81 100 Mechanical Ventilator 04/16/17 03:40 89 04/16/17 03:17 78 22 35 04/16/17 01:09 67 19 35 04/16/17 01:08 85 17 100 Mechanical Ventilator 04/16/17 00:00 35 04/16/17 00:00 81 04/15/17 23:49 98.1 84 16 106/68 100 Mechanical Ventilator 35 04/15/17 22:59 35 04/15/17 22:58 76 19 100 Mechanical Ventilator 35 04/15/17 22:54 67 19 35 04/15/17 21:54 76 19 35 04/15/17 21:19 98.1 04/15/17 20:16 83 04/15/17 20:00 35 04/15/17 19:25 98.1 93 24 145/57 99 Mechanical Ventilator 35 04/15/17 18:51 83 24 35 04/15/17 16:44 95 25 35 04/15/17 16:00 88 04/15/17 16:00 35 04/15/17 16:00 98.9 92 20 123/60 99 Mechanical Ventilator 35 04/15/17 15:04 93 22 35 04/15/17 15:03 93 22 98 Mechanical Ventilator 15.0 35 04/15/17 14:54 35 04/15/17 14:54 91 21 99 Mechanical Ventilator 35 Height (Feet): 5 Height (Inches): 6.00 Weight (Pounds): 138 Objective GEN: awake, alert, doesn't respond to commands, non toxic appearing, on mechanical vent through trach, FIO2 35% HEENT: Mild pale conjunctiva. oral mucosa dry, pharynx w/o exudate or effusion. No icterus. Head normocephalic, neck supple. NECK: No cervical LAD CHEST: Clear to auscultation bilaterally except diminished breath sounds at R lung base. scant but tenacious trach aspirates. HEART: S1 and S2, no murmurs, no rubs. ABDOMEN: soft, non tender, non distended, normoactive bowel sounds. g tube replaced. site is without surrounding cellulitis EXTREMITIES: No cyanosis, no clubbing, no edema. R inguinal CVC NEUROLOGIC: Awake, alert, no focal neurologic motor deficits. : petty in place draining clear yellow urine LYMPH: no LAD RECTAL: deferred SKIN: scattered non vesicular rash, mild, primarily on abdomen, spares intertriginous regions not c/w scabies Microbiology Date/Time Source Procedure Growth Status 04/14/17 18:15 Blood Blood Culture - Preliminary NO GROWTH AFTER 24 HOURS Resulted 04/14/17 18:00 Blood Blood Culture - Preliminary NO GROWTH AFTER 24 HOURS Resulted 04/14/17 17:30 Urine,Clean Catch Urine Culture - Preliminary YEAST Resulted Laboratory Tests Test 04/16/17 04:00 White Blood Count 16.6 K/UL (4.8-10.8) H Red Blood Count 2.86 M/UL (4.70-6.10) L Hemoglobin 8.0 G/DL (14.2-18.0) L Hematocrit 23.9 % (42.0-52.0) L Mean Corpuscular Volume 84 FL (80-99) Mean Corpuscular Hemoglobin 27.8 PG (27.0-31.0) Mean Corpuscular Hemoglobin Concent 33.3 G/DL (32.0-36.0) Red Cell Distribution Width 15.3 % (11.6-14.8) H Platelet Count 298 K/UL (150-450) Mean Platelet Volume 7.6 FL (6.5-10.1) Neutrophils (%) (Auto) 70.1 % (45.0-75.0) Lymphocytes (%) (Auto) 13.3 % (20.0-45.0) L Monocytes (%) (Auto) 7.8 % (1.0-10.0) Eosinophils (%) (Auto) 8.3 % (0.0-3.0) H Basophils (%) (Auto) 0.5 % (0.0-2.0) Sodium Level 137 mEQ/L (135-145) Potassium Level 3.9 mEQ/L (3.4-4.9) Chloride Level 102 mEQ/L (98-107) Carbon Dioxide Level 26 mEQ/L (20-30) Anion Gap 9 (5-15) Blood Urea Nitrogen 10 mg/dL (7-23) Creatinine 0.5 mg/dL (0.7-1.2) L Estimat Glomerular Filtration Rate > 60 mL/min (>60) Glucose Level 95 mg/dL (74-106) Calcium Level 8.8 mg/dL (8.6-10.2) Current Medications Medications (Trade) Dose Ordered Sig/Wanda Route PRN Reason Start Time Stop Time Status Last Admin Dose Admin Acetaminophen (Tylenol) 650 mg Q4H PRN ORAL T>100.5 04/14/17 20:15 05/14/17 20:14 Acetaminophen (Tylenol) 650 mg Q4H PRN RECTAL Mild Pain (Pain Scale 1-3) 04/14/17 20:13 05/14/17 19:44 Al Hydroxide/Mg Hydroxide (Mylanta II) 30 ml Q6H PRN ORAL dyspepsia 04/14/17 20:15 05/14/17 20:14 Albuterol/ Ipratropium (DuoNeb 0.5-3(2.5)mg/3ml) 3 ml Q8HRT HHN 04/14/17 23:00 04/19/17 22:59 04/16/17 06:58 Amlodipine Besylate (Norvasc) 2.5 mg DAILY ORAL 04/15/17 09:00 05/15/17 08:59 04/15/17 09:03 Cefepime HCl 2 gm/ Dextrose 110 ml @ 220 mls/hr EVERY 12 HOURS IV 04/15/17 09:00 04/22/17 08:59 04/16/17 08:23 Chlorhexidine Gluconate 1 applic 1 applic QHS TOPIC 04/14/17 23:45 05/14/17 23:44 04/15/17 20:47 Clonidine HCl (Catapres) 0.1 mg Q6H PRN ORAL sbp above 160 04/14/17 21:15 05/14/17 21:14 Dextrose (Dextrose 50%) STAT PRN IV Hypoglycemia 04/14/17 20:15 05/14/17 20:14 Diphenhydramine HCl (Benadryl) 25 mg Q6H PRN ORAL Itching/Pruritis 04/14/17 20:15 05/14/17 20:14 Iron Sucrose/ Sodium Chloride (Venofer/Sodium Chloride) 60 ml @ 240 mls/hr BEDTIME IVPB 04/16/17 21:00 04/20/17 21:14 Levothyroxine Sodium (Synthroid) 50 mcg DAILY GT 04/15/17 09:00 05/15/17 08:59 04/15/17 09:02 Metronidazole (Flagyl) 100 ml @ 100 mls/hr Q8HR IVPB 04/15/17 14:00 04/22/17 13:59 04/16/17 05:33 Morphine Sulfate (Morphine Sulfate) 2 mg Q4H PRN IVP Severe Pain (Pain Scale 7-10) 04/14/17 20:15 04/21/17 20:14 04/16/17 09:39 Nitroglycerin (Ntg) 0.4 mg Q5M X 3 DOSES PRN SL Prn Chest Pain 04/14/17 20:15 05/14/17 20:14 Ondansetron HCl (Zofran) 4 mg Q6H PRN IVP Nausea & Vomiting 04/14/17 20:15 05/14/17 20:14 Pantoprazole (Protonix) 40 mg DAILY IVP 04/15/17 09:00 05/15/17 08:59 04/16/17 08:24 Polyethylene Glycol (Miralax) 17 gm HSPRN PRN ORAL Constipation 04/14/17 21:00 05/14/17 20:59 Sodium Chloride (Sodium Chloride 1000ml bag) 1,000 ml @ 100 mls/hr Q10H IV 04/14/17 20:00 05/14/17 19:59 04/16/17 02:19 Sucralfate (Carafate) 1 gm FOUR TIMES A DAY GT 04/14/17 21:00 05/14/17 20:59 04/15/17 13:28 Vancomycin HCl 1 ea 1 ea DAILY PRN MISC Per rx protocol 04/15/17 08:30 05/15/17 08:29 Vancomycin HCl 1 gm/Dextrose 275 ml @ 183.708 mls/hr Q12HR@1000,2200 IVPB 04/15/17 10:00 04/20/17 09:59 04/16/17 09:29 Donato Perez M.D. Apr 16, 2017 13:44
--- NOTE | 2017-04-16 13:56 | History & Physical ---
History and Physical History & Physicial General Date patient seen: Apr 14, 2017 Time patient seen: 18:00 Chief Complaint: Gastrointestinal Bleed Reason for admission: hematemesis Present Illness HPI 66 y/old male with PMH significant for VDRF/tracheostomy, dysphagia, G tube, HTN , hx of CVA, seizure disorder, hypothyroidism, dementia, chronic encephalopathy , severe esophagitis was sent in from the SNF for evaluation of hematemesis x 1 day. Workup in ED revealed fever-101.5, tachycardia, tachypnea lactic acid-2.0-WNL leukocytosis-29 anemia- 9.2/27.5 UA with evidence of UTI CXR with possible RLL infiltrate troponin negative ECG with ST patient with hx of recurrent upper GI bleeding, GI workup that done previously revealed severe esophagitis patient was admitted for further management Allergies: Coded Allergies: NO KNOWN DRUG ALLERGIES (Verified Allergy, Unknown, 09/11/16) Medication History Scheduled Amlodipine Besylate (Norvasc), 2.5 MG ORAL DAILY Ascorbic Acid* (Vitamin C*), 500 MG ORAL DAILY, (Reported) Docusate Sodium* (Docusate Sodium*), 100 MG GT TWICE A DAY, (Reported) Famotidine (Famotidine), 20 MG GT DAILY, (Reported) Ferrous Sulfate (Ferrous Sulfate), 7.5 ML NG TWICE A DAY, (Reported) Folic Acid* (Folic Acid*), 1 MG GT DAILY, (Reported) Levothyroxine Sodium* (Levothyroxine Sodium*), 50 MCG GT DAILY, (Reported) Multivitamin Liquid* (Multi-Delyn*), 5 ML ORAL DAILY, (Reported) Izggfeqagmkw-Hzqa-Aexnlfvi,Iso (Zosyn 3.375 Gm Pre Mix-Bag), 3.375 GM IVPB EVERY 8 HOURS Sucralfate* (Carafate*), 1 GM GT FOUR TIMES A DAY, (Reported) Zinc Sulfate (Zinc Sulfate*), 220 MG ORAL DAILY, (Reported) Scheduled PRN Acetaminophen (Acetaminophen), 640 MG GT Q4HR PRN for Prn Headache/Temp > 101, ( Reported) Ipratropium/Albuterol Sulfate (DuoNeb 0.5-3(2.5)mg/3ml), 3 ML HHN Q4H PRN for Shortness of Breath Miscellaneous Medications Cran/Vitc/Mannose/Inulin/Brom (Uti-Stat Liquid), 3,875 MG PO, (Reported) Protein Supplement (Promod), 30 ML PO, (Reported) Discontinued Medications Albuterol Sulfate* (Albuterol Sulfate Hhn*), 3 ML INH Q6HR PRN for Shortness of Breath, (Reported) Discontinued Reason: Pt stopped taking med Benztropine Mesylate* (Benztropine Mesylate*), 1 MG GT BID, (Reported) Discontinued Reason: Pt stopped taking med Bisacodyl (Dulcolax), 10 MG RC DAILY PRN for Constipation, (Reported) Discontinued Reason: Pt stopped taking med Docusate Sodium* (Colace*), 100 MG GT TWICE A DAY, (Reported) Discontinued Reason: Pt stopped taking med Ferrous Sulfate (Ferrous Sulfate), 300 MG NG BID Discontinued Reason: Pt stopped taking med Ferrous Sulfate* (Ferrous Sulfate*), 325 MG ORAL TWICE A DAY, (Reported) Discontinued Reason: Pt stopped taking med Magnesium Hydroxide* (Milk Of Magnesia*), 30 ML ORAL QHS PRN for Constipation, ( Reported) Discontinued Reason: Pt stopped taking med Metoclopramide Hcl* (Reglan*), 5 MG GT EVERY 6 HOURS, (Reported) Discontinued Reason: Pt stopped taking med Oxcarbazepine (Oxcarbazepine), 300 MG GT TWICE A DAY, (Reported) Discontinued Reason: Pt stopped taking med Saccharomyces Boulardii (Florastor*), 250 MG GT TWICE A DAY, (Reported) Discontinued Reason: Pt stopped taking med Patient History History Provided By: Medical Record Healthcare decision maker Resuscitation status Full code Advanced Directive on File Past Medical/Surgical History (1) C. difficile colitis (2) Severe erosive esophagitis (3) Aspiration pneumonia (4) UTI (urinary tract infection) (5) Sepsis (6) Gastritis (7) Anemia (8) Upper GI bleed (9) HTN (hypertension) (10) Respiratory failure, [id number]-yrvlnlo (11) Alzheimer's dementia Review of Systems ROS Narrative unable to obtain due to chronic encephalopathy Physical Exam General Appearance: no apparent distress, lethargic, other - bedriden, thin, male, chroncially ill looking on Vent AC 600-40%-14 Lines, tubes and drains: central line - femoral intact HEENT: normocephalic, atraumatic, anicteric Neck: trach - Portex#7, secretions brown, thin, large Respiratory/Chest: no respiratory distress, rhonchi - right - scattered Cardiovascular/Chest: normal peripheral pulses, regular rhythm - ST on tele, no JVD, tachycardia Abdomen: normal bowel sounds, non tender, soft, other - G tube Extremities: normal capillary refill, no edema Neurologic: other Musculoskeletal: atrophy - BLE Last 24 Hour Vital Signs Date Time Temp Pulse Resp B/P Pulse Ox O2 Delivery O2 Flow Rate FiO2 04/14/17 19:23 101.5 134 35 161/65 100 40 04/14/17 19:23 119 26 40 04/14/17 18:30 40 04/14/17 17:00 98.8 112 28 126/81 98 40 04/14/17 16:40 116 28 40 04/14/17 16:24 98.8 102 20 115/65 100 Trach Collar Laboratory Tests Test 04/14/17 17:15 04/14/17 17:30 04/14/17 19:30 White Blood Count 29.0 K/UL (4.8-10.8) *H Red Blood Count 3.44 M/UL (4.70-6.10) L Hemoglobin 9.2 G/DL (14.2-18.0) L Hematocrit 27.5 % (42.0-52.0) L Mean Corpuscular Volume 80 FL (80-99) Mean Corpuscular Hemoglobin 26.7 PG (27.0-31.0) L Mean Corpuscular Hemoglobin Concent 33.4 G/DL (32.0-36.0) Red Cell Distribution Width 15.4 % (11.6-14.8) H Platelet Count 372 K/UL (150-450) Mean Platelet Volume 6.6 FL (6.5-10.1) Neutrophils (%) (Auto) % (45.0-75.0) Lymphocytes (%) (Auto) % (20.0-45.0) Monocytes (%) (Auto) % (1.0-10.0) Eosinophils (%) (Auto) % (0.0-3.0) Basophils (%) (Auto) % (0.0-2.0) Differential Total Cells Counted 100 Neutrophils % (Manual) 74 % (45-75) Lymphocytes % (Manual) 9 % (20-45) L Monocytes % (Manual) 6 % (1-10) Eosinophils % (Manual) 4 % (0-3) H Basophils % (Manual) 1 % (0-2) Band Neutrophils 6 % (0-8) Platelet Estimate Adequate Platelet Morphology Normal Polychromasia 1+ Anisocytosis 1+ Microcytosis 1+ Prothrombin Time 10.0 SEC (9.30-11.50) Prothromb Time International Ratio 1.0 (0.9-1.1) Activated Partial Thromboplast Time 26 SEC (23-33) Sodium Level 136 mEQ/L (135-145) Potassium Level 3.5 mEQ/L (3.4-4.9) Chloride Level 99 mEQ/L (98-107) Carbon Dioxide Level 28 mEQ/L (20-30) Anion Gap 9 (5-15) Blood Urea Nitrogen 20 mg/dL (7-23) Creatinine 0.7 mg/dL (0.7-1.2) Estimat Glomerular Filtration Rate > 60 mL/min (>60) Glucose Level 147 mg/dL (74-106) H Calcium Level 9.0 mg/dL (8.6-10.2) Total Bilirubin < 0.2 mg/dL (0.0-1.2) Aspartate Amino Transf (AST/SGOT) 15 U/L (5-40) Alanine Aminotransferase (ALT/SGPT) 10 U/L (3-41) Alkaline Phosphatase 75 U/L (40-129) Total Creatine Kinase 24 U/L (38-174) L Creatine Kinase MB 2.0 ng/mL (< 6.7) Creatine Kinase MB Relative Index 8.3 Troponin I < 0.30 ng/mL (<=0.30) Total Protein 6.8 g/dL (6.6-8.7) Albumin 3.2 g/dL (3.5-5.2) L Globulin 3.6 g/dL Albumin/Globulin Ratio 0.8 (1.0-2.7) L Lipase 52 U/L (< 60) Urine Color Pale yellow Urine Appearance Slightly cloudy Urine pH 6 (4.5-8.0) Urine Specific [place] 1.015 (1.005-1.035) Urine Protein 2+ (NEGATIVE) H Urine Glucose (UA) Negative (NEGATIVE) Urine Ketones Negative (NEGATIVE) Urine Occult Blood 1+ (NEGATIVE) H Urine Nitrite Negative (NEGATIVE) Urine Bilirubin Negative (NEGATIVE) Urine Urobilinogen Normal MG/DL (0.0-1.0) Urine Leukocyte Esterase 3+ (NEGATIVE) H Urine RBC 5-10 /HPF (0 - 0) H Urine WBC 10-15 /HPF (0 - 0) H Urine Squamous Epithelial Cells None /LPF (NONE/OCC) Urine Bacteria Moderate /HPF (NONE) H Urine Yeast Moderate /HPF (NONE) H Lactic Acid Level 2.00 mmol/L (0.66-2.22) Height (Feet): 5 Height (Inches): 6.00 Weight (Pounds): 150 Medications Current Medications Medications (Trade) Dose Ordered Sig/Wanda Route PRN Reason Start Time Stop Time Status Last Admin Dose Admin Acetaminophen (Tylenol) 650 mg Q4H PRN ORAL T>100.5 04/14/17 20:15 05/14/17 20:14 Acetaminophen (Tylenol) 650 mg Q4H PRN RECTAL Mild Pain (Pain Scale 1-3) 04/14/17 20:13 05/14/17 19:44 Al Hydroxide/Mg Hydroxide (Mylanta II) 30 ml Q6H PRN ORAL dyspepsia 04/14/17 20:15 05/14/17 20:14 Albuterol/ Ipratropium (DuoNeb 0.5-3(2.5)mg/3ml) 3 ml Q8HRT HHN 04/14/17 23:00 04/19/17 22:59 Amlodipine Besylate (Norvasc) 2.5 mg DAILY ORAL 04/15/17 09:00 05/15/17 08:59 Chlorhexidine Gluconate (Jasmin-Hex 2%) 1 applic DAILY TOPIC 04/15/17 09:00 05/15/17 08:59 Dextrose (Dextrose 50%) STAT PRN IV Hypoglycemia 04/14/17 20:15 05/14/17 20:14 Dextrose/Sodium Chloride (D5 0.45% NS) 1,000 ml @ 75 mls/hr [id number] IV 04/14/17 20:30 05/14/17 20:29 Diphenhydramine HCl (Benadryl) 25 mg Q6H PRN ORAL Itching/Pruritis 04/14/17 20:15 05/14/17 20:14 Levothyroxine Sodium (Synthroid) 50 mcg DAILY GT 04/15/17 09:00 05/15/17 08:59 Morphine Sulfate (Morphine Sulfate) 2 mg Q4H PRN IVP Severe Pain (Pain Scale 7-10) 04/14/17 20:15 04/21/17 20:14 Nitroglycerin (Ntg) 0.4 mg Q5M X 3 DOSES PRN SL Prn Chest Pain 04/14/17 20:15 05/14/17 20:14 Ondansetron HCl (Zofran) 4 mg Q6H PRN IVP Nausea & Vomiting 04/14/17 20:15 05/14/17 20:14 Polyethylene Glycol (Miralax) 17 gm HSPRN PRN ORAL Constipation 04/14/17 21:00 05/14/17 20:59 Sodium Chloride 1,000 ml @ 100 mls/hr Q10H IV 04/14/17 20:00 05/14/17 19:59 Sodium Chloride (Sodium Chloride 1000ml bag) 1,000 ml @ 999 mls/hr Q1H1M ONCE IV 04/14/17 20:00 04/14/17 21:00 04/14/17 20:03 Sucralfate 1 gm 1 gm FOUR TIMES A DAY GT 04/14/17 21:00 05/14/17 20:59 Assessment/Plan Assessment/Plan ASSESSMENT sepsis UTI with hx of recurrent UTI [facility]CA PNA upper GI bleeding severe erosive esophagitis anemia acute on chronic respiratory failure VDRF/trach dysphagia, G tube HTN hx of CVA chronic encephalopathy functional quadriplegia severe protein calorie malnutrition hypothyroidism PLAN OF CARE LUIS vent support trach care pulmonary toilet baseline ABG in am and titrate settings as needed fup with CXR in am empiric abx, fup with cx, get stool for C dif ( hx of recureent C dif in the past) ID consult NPO IVF GI consult PPI and Carafate monitor HH transfuse prn, goal to keep Hgb above 7 BP management with current regimen of CCB and optimize as needed continue levothyroxine, check TSH Venous Duplex BLE and if negative place SCD prealbumin dietary eval re supplements and further TF and rate when feeding started case discussed and evaluated by supervising physicia Of note, the actual time patient was seen does not correspond to the stamp time the patient was seen at 1715. [facility]Amina NP Apr 14, 2017 20:56 [facility]opesGood [facility] HospitalAmina Roper NP Apr 16, 2017 13:56
[2017-04-16 15:53] VITALS: BP 114/61
[2017-04-16 20:00] VITALS: BP 113/64
[2017-04-16] MEDS: Dyna-Hex 2% Top Sol 8oz TOPIC SCH (21:34)
[2017-04-16] MEDS: Iron Sucrose 100 MG in NS 55 ML IVPB SCH (21:34)
[2017-04-16 23:53] VITALS: BP 128/68
[2017-04-17 04:00] VITALS: BP 107/57
[2017-04-17 04:53] LABS: MEAN CORPUSCULAR HEMOGLOBIN 27.1 PG (27.0-31.0); MEAN CORPUSCULAR HGB CONC 32.5 G/DL (32.0-36.0); MEAN CORPUSCULAR VOLUME 83 FL (80-99); MEAN PLATELET VOLUME 7.3 FL (6.5-10.1); PLATELET COUNT 289 K/UL (150-450); RED BLOOD COUNT 2.76 M/UL (4.70-6.10); RED CELL DISTRIBUTION WIDTH 15.8 % (11.6-14.8)
[2017-04-17 05:15] LABS: MAGNESIUM 1.7 mg/dL (1.7-2.5); PHOSPHORUS 2.1 mg/dL (2.5-4.8)
[2017-04-17 05:19] LABS: ALANINE AMINOTRANSFERASE 11 U/L (3-41); ALBUMIN/GLOBULIN RATIO 0.7 (1.0-2.7); ANION GAP 6 (5-15); ASPARTATE AMINO TRANSFERASE 14 U/L (5-40); CALCIUM 8.5 mg/dL (8.6-10.2); CARBON DIOXIDE 26 mEQ/L (20-30); CHLORIDE 103 mEQ/L (98-107); CREATININE 0.6 mg/dL (0.7-1.2); GLOMERULAR FILTRATION RATE > 60 mL/min (>60); HEMOLYSIS 2; POTASSIUM 3.8 mEQ/L (3.4-4.9); SODIUM 135 mEQ/L (135-145); TOTAL PROTEIN 5.7 g/dL (6.6-8.7)
[2017-04-17 05:44] LABS: PROTHROMBIN TIME 10.7 SEC (9.30-11.50)
[2017-04-17] MEDS: metroNIDAZOLE 500mg 100 ML IVPB SCH ×3 (06:15→22:32)
[2017-04-17] MEDS: DuoNeb 0.5-3(2.5)mg/3ml neb HHN SCH ×3 (07:09→22:57)
[2017-04-17 08:00] VITALS: BP 132/78
[2017-04-17 08:05] LABS: EOSINOPHILS % (MANUAL) 12 % (0-3); LYMPHOCYTES % (MANUAL) 14 % (20-45); NEUTROPHILS % (MANUAL) 71 % (45-75); TOTAL CELLS COUNTED 100
[2017-04-17 08:06] LABS: ANISOCYTOSIS 1+; BAND NEUTROPHILS % (MANUAL) 0 % (0-8); BASOPHILS % (MANUAL) 0 % (0-2); HYPOCHROMASIA 3+; PLATELET ESTIMATE ADEQUATE; PLATELET MORPHOLOGY NORMAL; SPHEROCYTES 1+
[2017-04-17] MEDS ORDERED: Heparin 2000 units/Ns 1000ml INJ ONE (09:00)
[2017-04-17] MEDS ORDERED: Lidocaine 1% Plain 30 ml INJ ONE (09:00)
--- NOTE | 2017-04-17 09:04 | Diagnostic Imaging Report ---
Indication: Abdominal pain Comparison: None Single view of the abdomen obtained Gastrostomy and right femoral central venous catheter and Victor catheter is noted. Bowel gas pattern is nonspecific. Moderate stool demonstrated. Impression: No acute findings appreciated.
--- NOTE | 2017-04-17 09:29 | GI Progress Note ---
Assessment/Plan Problems: (1) Gastrostomy tube dependent ICD Codes: Z93.1 - Gastrostomy tube dependent SNOMED: 078647905 (2) Hypoalbuminemia ICD Codes: E88.09 - Other disorders of plasma-protein metabolism, not elsewhere classified SNOMED: 698601930 (3) C. difficile colitis ICD Codes: A04.7 - C. difficile colitis SNOMED: 918204637 (4) Dysphagia ICD Codes: R13.10 - Dysphagia, unspecified SNOMED: 37489661, 769241088 (5) Malfunction of gastrostomy tube ICD Codes: K94.23 - Gastrostomy malfunction SNOMED: 079278801 (6) Anemia ICD Codes: D64.9 - Anemia, unspecified SNOMED: 319123163 (7) Protein-calorie malnutrition, severe ICD Codes: E43 - Unspecified severe protein-calorie malnutrition SNOMED: 996832421 (8) Esophagitis ICD Codes: K20.9 - Esophagitis SNOMED: 56506426 Status: stable Status Narrative Discussed with Dr. Wilson. Assessment/Plan GT malfunction >> changed to GT 20fr, ok to use GTFs per dietary iron deficient, venofer prn transfusions ppi carafate reflux measures stool for C.diff fu labs Subjective Subjective limited Objective Last 24 Hour Vital Signs Date Time Temp Pulse Resp B/P Pulse Ox O2 Delivery O2 Flow Rate FiO2 04/17/17 09:07 76 20 35 04/17/17 08:00 83 04/17/17 08:00 98.6 83 20 132/78 100 Mechanical Ventilator 35 04/17/17 08:00 35 04/17/17 07:19 80 20 100 Mechanical Ventilator 35 04/17/17 07:13 81 21 35 04/17/17 07:09 82 20 98 Mechanical Ventilator 35 04/17/17 04:45 74 21 35 04/17/17 04:00 35 04/17/17 04:00 76 04/17/17 04:00 99.2 78 18 107/57 97 Mechanical Ventilator 35 04/17/17 02:36 79 24 35 04/17/17 01:10 76 16 35 04/17/17 00:00 35 04/17/17 00:00 74 04/16/17 23:53 98.9 93 21 128/68 100 Mechanical Ventilator 35 04/16/17 22:55 91 27 35 04/16/17 22:55 91 29 100 Mechanical Ventilator 35 04/16/17 22:45 35 04/16/17 22:45 90 26 99 Mechanical Ventilator 35 04/16/17 20:38 83 24 35 04/16/17 20:00 99.0 76 22 113/64 100 Mechanical Ventilator 35 04/16/17 20:00 80 04/16/17 20:00 35 04/16/17 18:53 84 24 35 04/16/17 17:19 80 16 35 04/16/17 15:53 98.2 78 20 114/61 100 Mechanical Ventilator 35 04/16/17 15:53 35 04/16/17 15:53 78 04/16/17 15:13 71 14 100 Mechanical Ventilator 04/16/17 15:11 72 16 35 04/16/17 15:04 35 04/16/17 15:04 72 14 99 Mechanical Ventilator 35 04/16/17 13:29 73 16 35 04/16/17 11:54 35 04/16/17 11:54 79 04/16/17 11:54 98.3 79 22 121/69 100 Mechanical Ventilator 35 04/16/17 11:26 91 21 35 04/16/17 09:29 85 24 35 Intake and Output 04/16/17 04/17/17 19:00 07:00 Intake Total 2145 ml 2048.088 ml Output Total 650 ml 800 ml Balance 1495 ml 1248.088 ml Free Water 230 ml 30 ml IV Total 1475 ml 2018.088 ml Tube Feeding 440 ml Output Urine Total 650 ml 800 ml Laboratory Tests Test 04/16/17 21:20 04/17/17 03:45 Vancomycin Level Trough 16.0 ug/mL (5.0-12.0) H White Blood Count 13.0 K/UL (4.8-10.8) H Red Blood Count 2.76 M/UL (4.70-6.10) L Hemoglobin 7.5 G/DL (14.2-18.0) L Hematocrit 23.0 % (42.0-52.0) L Mean Corpuscular Volume 83 FL (80-99) Mean Corpuscular Hemoglobin 27.1 PG (27.0-31.0) Mean Corpuscular Hemoglobin Concent 32.5 G/DL (32.0-36.0) Red Cell Distribution Width 15.8 % (11.6-14.8) H Platelet Count 289 K/UL (150-450) Mean Platelet Volume 7.3 FL (6.5-10.1) Neutrophils (%) (Auto) % (45.0-75.0) Lymphocytes (%) (Auto) % (20.0-45.0) Monocytes (%) (Auto) % (1.0-10.0) Eosinophils (%) (Auto) % (0.0-3.0) Basophils (%) (Auto) % (0.0-2.0) Differential Total Cells Counted 100 Neutrophils % (Manual) 71 % (45-75) Lymphocytes % (Manual) 14 % (20-45) L Monocytes % (Manual) 3 % (1-10) Eosinophils % (Manual) 12 % (0-3) H Basophils % (Manual) 0 % (0-2) Band Neutrophils 0 % (0-8) Platelet Estimate Adequate Platelet Morphology Normal Hypochromasia 3+ Anisocytosis 1+ Spherocytes 1+ Prothrombin Time 10.7 SEC (9.30-11.50) Prothromb Time International Ratio 1.0 (0.9-1.1) Activated Partial Thromboplast Time 30 SEC (23-33) Sodium Level 135 mEQ/L (135-145) Potassium Level 3.8 mEQ/L (3.4-4.9) Chloride Level 103 mEQ/L (98-107) Carbon Dioxide Level 26 mEQ/L (20-30) Anion Gap 6 (5-15) Blood Urea Nitrogen 11 mg/dL (7-23) Creatinine 0.6 mg/dL (0.7-1.2) L Estimat Glomerular Filtration Rate > 60 mL/min (>60) Glucose Level 114 mg/dL (74-106) H Calcium Level 8.5 mg/dL (8.6-10.2) L Phosphorus Level 2.1 mg/dL (2.5-4.8) L Magnesium Level 1.7 mg/dL (1.7-2.5) Total Bilirubin < 0.2 mg/dL (0.0-1.2) Aspartate Amino Transf (AST/SGOT) 14 U/L (5-40) Alanine Aminotransferase (ALT/SGPT) 11 U/L (3-41) Alkaline Phosphatase 58 U/L (40-129) Total Protein 5.7 g/dL (6.6-8.7) L Albumin 2.5 g/dL (3.5-5.2) L Globulin 3.2 g/dL Albumin/Globulin Ratio 0.7 (1.0-2.7) L Height (Feet): 5 Height (Inches): 6.00 Weight (Pounds): 138 General Appearance: no apparent distress, alert Cardiovascular: normal rate Respiratory/Chest: other - mech vent Abdominal Exam: GT site - c/d/i Arabella Quesada N.P. Apr 17, 2017 09:29
[2017-04-17] MEDS ORDERED: Sodium Phosphate 30 MM in NS 275 ML IVPB ONE (09:30)
[2017-04-17] MEDS: Sucralfate 1gm tab GT SCH ×4 (10:12→21:31)
[2017-04-17] MEDS: Dyna-Hex 2% Top Sol 8oz TOPIC SCH (10:12)
[2017-04-17] MEDS: Pantoprazole Inj IVP SCH (10:13)
--- NOTE | 2017-04-17 10:16 | Pulmonology Progress Note ---
Assessment/Plan Problems: (1) Respiratory failure, [id number] (2) Sepsis (3) Aspiration pneumonia (4) UGIB (upper gastrointestinal bleed) (5) Malfunction of gastrostomy tube (6) Protein-calorie malnutrition, severe Respiratory: monitor respiratory rate, adjust FIO2 Cardiac: continue to monitor HR/BP Renal: F/U I&O, keep IV fluid, check electrolytes Infectious Disease: check cultures, continue antibiotics Gastrointestinal: continue feedings/current rate Endocrine: monitor blood sugar Hematologic: monitor H/H, transfuse if hgb<8.5 Neurologic: PRN Ativan, PRN Morphine, keep patient comfortable Prophylaxis: SCDs Time Spent (Minutes): 40 Notes 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, 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 with: nurses, consultants, geriatric case manager Subjective ROS Limited/Unobtainable: No Constitutional: Reports: no symptoms HEENT: Repors: no symptoms Respiratory: Reports: no symptoms Cardiovascular: Reports: no symptoms Allergies: Coded Allergies: NO KNOWN DRUG ALLERGIES (Verified Allergy, Unknown, 09/11/16) Objective Last 24 Hour Vital Signs Date Time Temp Pulse Resp B/P Pulse Ox O2 Delivery O2 Flow Rate FiO2 04/17/17 09:07 76 20 35 04/17/17 08:00 83 04/17/17 08:00 98.6 83 20 132/78 100 Mechanical Ventilator 35 04/17/17 08:00 35 04/17/17 07:19 80 20 100 Mechanical Ventilator 35 04/17/17 07:13 81 21 35 04/17/17 07:09 82 20 98 Mechanical Ventilator 35 04/17/17 04:45 74 21 35 04/17/17 04:00 35 04/17/17 04:00 76 04/17/17 04:00 99.2 78 18 107/57 97 Mechanical Ventilator 35 04/17/17 02:36 79 24 35 04/17/17 01:10 76 16 35 04/17/17 00:00 35 04/17/17 00:00 74 04/16/17 23:53 98.9 93 21 128/68 100 Mechanical Ventilator 35 04/16/17 22:55 91 27 35 04/16/17 22:55 91 29 100 Mechanical Ventilator 35 04/16/17 22:45 35 04/16/17 22:45 90 26 99 Mechanical Ventilator 35 04/16/17 20:38 83 24 35 04/16/17 20:00 99.0 76 22 113/64 100 Mechanical Ventilator 35 04/16/17 20:00 80 04/16/17 20:00 35 04/16/17 18:53 84 24 35 04/16/17 17:19 80 16 35 04/16/17 15:53 98.2 78 20 114/61 100 Mechanical Ventilator 35 04/16/17 15:53 35 04/16/17 15:53 78 04/16/17 15:13 71 14 100 Mechanical Ventilator 35 04/16/17 15:11 72 16 35 04/16/17 15:04 35 04/16/17 15:04 72 14 99 Mechanical Ventilator 35 04/16/17 13:29 73 16 35 04/16/17 11:54 35 04/16/17 11:54 79 04/16/17 11:54 98.3 79 22 121/69 100 Mechanical Ventilator 35 04/16/17 11:26 91 21 35 Intake and Output 04/16/17 04/17/17 18:59 06:59 Intake Total 2115 ml 2003.088 ml Output Total 650 ml 800 ml Balance 1465 ml 1203.088 ml Free Water 200 ml 60 ml IV Total 1475 ml 1943.088 ml Tube Feeding 440 ml Output Urine Total 650 ml 800 ml General Appearance: WD/WN HEENT: normocephalic, atraumatic Respiratory/Chest: chest wall non-tender, lungs clear Cardiovascular: normal peripheral pulses, normal rate Abdomen: normal bowel sounds, soft, non tender Extremities: no clubbing 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 Complete 04/14/17 17:30 Urine,Clean Catch Urine Culture - Final Tea Tropicalis Complete Laboratory Tests 04/16/17 21:20: Vancomycin Level Trough 16.0H 04/17/17 03:45: White Blood Count 13.0H, Red Blood Count 2.76L, Hemoglobin 7.5L, Hematocrit 23.0L, Mean Corpuscular Volume 83, Mean Corpuscular Hemoglobin 27.1, Mean Corpuscular Hemoglobin Concent 32.5, Red Cell Distribution Width 15.8H, Platelet Count 289, Mean Platelet Volume 7.3, Neutrophils (%) (Auto) , Lymphocytes (%) (Auto) , Monocytes (%) (Auto) , Eosinophils (%) (Auto) , Basophils (%) (Auto) , Differential Total Cells Counted 100, Neutrophils % ( Manual) 71, Lymphocytes % (Manual) 14L, Monocytes % (Manual) 3, Eosinophils % ( Manual) 12H, Basophils % (Manual) 0, Band Neutrophils 0, Platelet Estimate Adequate, Platelet Morphology Normal, Hypochromasia 3+, Anisocytosis 1+, Spherocytes 1+, Prothrombin Time 10.7, Prothromb Time International Ratio 1.0, Activated Partial Thromboplast Time 30, Sodium Level 135, Potassium Level 3.8, Chloride Level 103, Carbon Dioxide Level 26, Anion Gap 6, Blood Urea Nitrogen 11 , Creatinine 0.6L, Estimat Glomerular Filtration Rate > 60, Glucose Level 114H, Calcium Level 8.5L, Phosphorus Level 2.1L, Magnesium Level 1.7, Total Bilirubin < 0.2, Aspartate Amino Transf (AST/SGOT) 14, Alanine Aminotransferase (ALT/SGPT ) 11, Alkaline Phosphatase 58, Total Protein 5.7L, Albumin 2.5L, Globulin 3.2, Albumin/Globulin Ratio 0.7L Current Medications Medications (Trade) Dose Ordered Sig/Wanda Route PRN Reason Start Time Stop Time Status Last Admin Dose Admin Acetaminophen (Tylenol) 650 mg Q4H PRN ORAL T>100.5 04/14/17 20:15 05/14/17 20:14 Acetaminophen (Tylenol) 650 mg Q4H PRN RECTAL Mild Pain (Pain Scale 1-3) 04/14/17 20:13 05/14/17 19:44 Al Hydroxide/Mg Hydroxide (Mylanta II) 30 ml Q6H PRN ORAL dyspepsia 04/14/17 20:15 05/14/17 20:14 Albuterol/ Ipratropium (DuoNeb 0.5-3(2.5)mg/3ml) 3 ml Q8HRT HHN 04/14/17 23:00 04/19/17 22:59 04/17/17 07:09 Amlodipine Besylate (Norvasc) 2.5 mg DAILY ORAL 04/15/17 09:00 05/15/17 08:59 04/15/17 09:03 Cefepime HCl 2 gm/ Dextrose 110 ml @ 220 mls/hr EVERY 12 HOURS IV 04/15/17 09:00 04/22/17 08:59 04/16/17 21:33 Chlorhexidine Gluconate 1 applic 1 applic DAILY TOPIC 04/17/17 09:00 05/17/17 08:59 Clonidine HCl 0.1 mg 0.1 mg Q6H PRN ORAL sbp above 160 04/14/17 21:15 05/14/17 21:14 Dextrose (Dextrose 50%) STAT PRN IV Hypoglycemia 04/14/17 20:15 05/14/17 20:14 Diphenhydramine HCl (Benadryl) 25 mg Q6H PRN ORAL Itching/Pruritis 04/14/17 20:15 05/14/17 20:14 Fluconazole/ Sodium Chloride (Diflucan 200mg/ 100ml Premix) 100 ml @ 100 mls/hr Q24H IV 04/16/17 15:00 04/25/17 14:59 04/16/17 15:38 Iron Sucrose 100 mg/Sodium Chloride 60 ml @ 240 mls/hr BEDTIME IVPB 04/16/17 21:00 04/20/17 21:14 04/16/17 21:34 Levothyroxine Sodium (Synthroid) 50 mcg DAILY GT 04/15/17 09:00 05/15/17 08:59 04/15/17 09:02 Metronidazole (Flagyl) 100 ml @ 100 mls/hr Q8HR IVPB 04/15/17 14:00 04/22/17 13:59 04/17/17 06:15 Morphine Sulfate (Morphine Sulfate) 2 mg Q4H PRN IVP Severe Pain (Pain Scale 7-10) 04/14/17 20:15 04/21/17 20:14 04/16/17 09:39 Nitroglycerin (Ntg) 0.4 mg Q5M X 3 DOSES PRN SL Prn Chest Pain 04/14/17 20:15 05/14/17 20:14 Ondansetron HCl (Zofran) 4 mg Q6H PRN IVP Nausea & Vomiting 04/14/17 20:15 05/14/17 20:14 Pantoprazole (Protonix) 40 mg DAILY IVP 04/15/17 09:00 05/15/17 08:59 04/16/17 08:24 Polyethylene Glycol (Miralax) 17 gm HSPRN PRN ORAL Constipation 04/14/17 21:00 05/14/17 20:59 Sodium Chloride (Sodium Chloride 1000ml bag) 1,000 ml @ 100 mls/hr Q10H IV 04/14/17 20:00 05/14/17 19:59 04/17/17 01:43 Sodium Phosphate/ Sodium Chloride (NaPO4/Sodium Chloride) 285 ml @ 47.5 mls/hr ONCE ONCE IVPB 04/17/17 09:30 04/17/17 15:29 Sucralfate (Carafate) 1 gm FOUR TIMES A DAY GT 04/14/17 21:00 05/14/17 20:59 04/16/17 21:25 Vancomycin HCl 1 ea 1 ea DAILY PRN MISC Per rx protocol 04/15/17 08:30 05/15/17 08:29 Vancomycin HCl 1 gm/Dextrose 275 ml @ 183.708 mls/hr Q12HR@1000,2200 IVPB 04/15/17 10:00 04/20/17 09:59 04/16/17 22:16 MIKAYLA WILLOUGHBY Apr 17, 2017 10:16
[2017-04-17] MEDS: Cefepime 2gm/D5W 110ml IV SCH ×4 (11:34→21:29)
[2017-04-17] MEDS: Vancomycin 1gm/D5W 275ml IVPB SCH ×4 (11:35→22:33)
--- NOTE | 2017-04-17 11:40 | Diagnostic Imaging Report ---
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 Hx of Line (RCFV) BILATERAL: Imaging reveals a patent deep venous system bilaterally. There is no evidence of thrombus within the femoral, popliteal or tibial segments. The greater saphenous veins are also within normal limits. Doppler indicates normal spontaneous flow within these segments.
[2017-04-17 12:00] VITALS: BP 142/88
--- NOTE | 2017-04-17 14:24 | Infectious Diseases Prog Note ---
Assessment/Plan Assessment/Plan ASSESSMENT: 66 y/o vent/trach dependent senior living resident, h/o MDRO, admitted with UGIB and a RLL pneumonia and low grade Tea tropicalis UTI, now with petty in place. he has a h/o profound reactive leukocytosis for mild infections (eg. pna, uti), and there could be a reactive component due to the UGIB, but given G tube dislodged, h/o erosive esophagitis, I considered intraabdominal source as a possibility. c diff pcr on stool was ordered but not sent, as he hasn't had diarrhea. He'll have adequate empiric gnr/anaerobic coverage with current cefepime, vancomycin, and flagyl, and he's now defervesced abd x ray unremarkable. given his clinical response and evidence of RLL pneumonia and tea UTI, as long as he continues to improve wouldn't recommend CT a/p at this time. 1) RLL pneumonia, VAP. some component of volume overload on f/u CXR 2) Tea UTI 3) sepsis 4) severe leukocytosis w/ left shift, improved from 31.2 down to 13 5) fever--resolved 6) h/o recurrent aspiration pna/HCAP h/o GGS, MDR-ACB, KPC-Klebsiella pneumoniae, P. stuartii 7) h/o recurrent UTI --h/o CRE-K. pneumoniae, M. morganii, P. mirabilis, ESBL(+) K. 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 C diff stool not yet sent. If confirmed C diff negative, will d /c flagyl. -Continue fluconazole 200mg iv q24hr D#2/. will plan to decrease to 100mg tommorrow since tropicalis tends to be pretty sensitive to azoles. -monitor CBC, temps -monitor BMP -monitor CXR -contact isolation -vent support, trach care, aspiration precautions -R groin CVC care Subjective ROS Limited/Unobtainable: Yes Allergies: Coded Allergies: NO KNOWN DRUG ALLERGIES (Verified Allergy, Unknown, 09/11/16) Subjective defervesced since 04/14. G tube replaced 04/15.. Objective Vital Signs Last 24 Hour Vital Signs Date Time Temp Pulse Resp B/P Pulse Ox O2 Delivery O2 Flow Rate FiO2 04/17/17 12:50 81 18 35 04/17/17 12:00 98.2 78 17 142/88 100 Mechanical Ventilator 35 04/17/17 11:23 83 04/17/17 11:23 35 04/17/17 10:39 89 20 35 04/17/17 10:12 76 132/78 04/17/17 09:07 76 20 35 04/17/17 08:00 83 04/17/17 08:00 98.6 83 20 132/78 100 Mechanical Ventilator 35 04/17/17 08:00 35 04/17/17 07:19 80 20 100 Mechanical Ventilator 35 04/17/17 07:13 81 21 35 04/17/17 07:09 82 20 98 Mechanical Ventilator 35 04/17/17 04:45 74 21 35 04/17/17 04:00 35 04/17/17 04:00 76 04/17/17 04:00 99.2 78 18 107/57 97 Mechanical Ventilator 35 04/17/17 02:36 79 24 35 04/17/17 01:10 76 16 35 04/17/17 00:00 35 04/17/17 00:00 74 04/16/17 23:53 98.9 93 21 128/68 100 Mechanical Ventilator 35 04/16/17 22:55 91 27 35 04/16/17 22:55 91 29 100 Mechanical Ventilator 35 04/16/17 22:45 35 04/16/17 22:45 90 26 99 Mechanical Ventilator 35 04/16/17 20:38 83 24 35 04/16/17 20:00 99.0 76 22 113/64 100 Mechanical Ventilator 35 04/16/17 20:00 80 04/16/17 20:00 35 04/16/17 18:53 84 24 35 04/16/17 17:19 80 16 35 04/16/17 15:53 98.2 78 20 114/61 100 Mechanical Ventilator 35 04/16/17 15:53 35 04/16/17 15:53 78 04/16/17 15:13 71 14 100 Mechanical Ventilator 35 04/16/17 15:11 72 16 35 04/16/17 15:04 35 04/16/17 15:04 72 14 99 Mechanical Ventilator 35 Height (Feet): 5 Height (Inches): 6.00 Weight (Pounds): 138 Objective GEN: awake, alert, doesn't respond to commands, non toxic appearing, on mechanical vent through trach, FIO2 35% HEENT: Mild pale conjunctiva. oral mucosa dry, pharynx w/o exudate or effusion. No icterus. Head normocephalic, neck supple. NECK: No cervical LAD CHEST: Clear to auscultation bilaterally except diminished breath sounds at R lung base. scant but tenacious trach aspirates. HEART: S1 and S2, no murmurs, no rubs. ABDOMEN: soft, non tender, non distended, normoactive bowel sounds. g tube replaced. site is without surrounding cellulitis EXTREMITIES: No cyanosis, no clubbing, no edema. R inguinal CVC NEUROLOGIC: Awake, alert, no focal neurologic motor deficits. : petty in place draining clear yellow urine LYMPH: no LAD RECTAL: deferred SKIN: scattered non vesicular rash, mild, primarily on abdomen, spares intertriginous regions not c/w scabies Microbiology Date/Time Source Procedure Growth Status 04/14/17 18:15 Blood Blood Culture - Preliminary NO GROWTH AFTER 48 HOURS Resulted 04/14/17 18:00 Blood Blood Culture - Preliminary NO GROWTH AFTER 48 HOURS Resulted 04/14/17 19:01 Nasal Nares MRSA Culture - Final NO METHICILLIN RESISTANT STAPH AUREUS... Complete 04/14/17 17:30 Urine,Clean Catch Urine Culture - Final Tea Tropicalis Complete Laboratory Tests Test 04/16/17 21:20 04/17/17 03:45 Vancomycin Level Trough 16.0 ug/mL (5.0-12.0) H White Blood Count 13.0 K/UL (4.8-10.8) H Red Blood Count 2.76 M/UL (4.70-6.10) L Hemoglobin 7.5 G/DL (14.2-18.0) L Hematocrit 23.0 % (42.0-52.0) L Mean Corpuscular Volume 83 FL (80-99) Mean Corpuscular Hemoglobin 27.1 PG (27.0-31.0) Mean Corpuscular Hemoglobin Concent 32.5 G/DL (32.0-36.0) Red Cell Distribution Width 15.8 % (11.6-14.8) H Platelet Count 289 K/UL (150-450) Mean Platelet Volume 7.3 FL (6.5-10.1) Neutrophils (%) (Auto) % (45.0-75.0) Lymphocytes (%) (Auto) % (20.0-45.0) Monocytes (%) (Auto) % (1.0-10.0) Eosinophils (%) (Auto) % (0.0-3.0) Basophils (%) (Auto) % (0.0-2.0) Differential Total Cells Counted 100 Neutrophils % (Manual) 71 % (45-75) Lymphocytes % (Manual) 14 % (20-45) L Monocytes % (Manual) 3 % (1-10) Eosinophils % (Manual) 12 % (0-3) H Basophils % (Manual) 0 % (0-2) Band Neutrophils 0 % (0-8) Platelet Estimate Adequate Platelet Morphology Normal Hypochromasia 3+ Anisocytosis 1+ Spherocytes 1+ Prothrombin Time 10.7 SEC (9.30-11.50) Prothromb Time International Ratio 1.0 (0.9-1.1) Activated Partial Thromboplast Time 30 SEC (23-33) Sodium Level 135 mEQ/L (135-145) Potassium Level 3.8 mEQ/L (3.4-4.9) Chloride Level 103 mEQ/L (98-107) Carbon Dioxide Level 26 mEQ/L (20-30) Anion Gap 6 (5-15) Blood Urea Nitrogen 11 mg/dL (7-23) Creatinine 0.6 mg/dL (0.7-1.2) L Estimat Glomerular Filtration Rate > 60 mL/min (>60) Glucose Level 114 mg/dL (74-106) H Calcium Level 8.5 mg/dL (8.6-10.2) L Phosphorus Level 2.1 mg/dL (2.5-4.8) L Magnesium Level 1.7 mg/dL (1.7-2.5) Total Bilirubin < 0.2 mg/dL (0.0-1.2) Aspartate Amino Transf (AST/SGOT) 14 U/L (5-40) Alanine Aminotransferase (ALT/SGPT) 11 U/L (3-41) Alkaline Phosphatase 58 U/L (40-129) Total Protein 5.7 g/dL (6.6-8.7) L Albumin 2.5 g/dL (3.5-5.2) L Globulin 3.2 g/dL Albumin/Globulin Ratio 0.7 (1.0-2.7) L Current Medications Medications (Trade) Dose Ordered Sig/Wanda Route PRN Reason Start Time Stop Time Status Last Admin Dose Admin Acetaminophen (Tylenol) 650 mg Q4H PRN ORAL T>100.5 04/14/17 20:15 05/14/17 20:14 Acetaminophen (Tylenol) 650 mg Q4H PRN RECTAL Mild Pain (Pain Scale 1-3) 04/14/17 20:13 05/14/17 19:44 Al Hydroxide/Mg Hydroxide (Mylanta II) 30 ml Q6H PRN ORAL dyspepsia 04/14/17 20:15 05/14/17 20:14 Albuterol/ Ipratropium (DuoNeb 0.5-3(2.5)mg/3ml) 3 ml Q8HRT HHN 04/14/17 23:00 04/19/17 22:59 04/17/17 07:09 Amlodipine Besylate (Norvasc) 2.5 mg DAILY ORAL 04/15/17 09:00 05/15/17 08:59 04/17/17 10:12 Cefepime HCl 2 gm/ Dextrose 110 ml @ 220 mls/hr EVERY 12 HOURS IV 04/15/17 09:00 04/22/17 08:59 04/17/17 11:34 Chlorhexidine Gluconate 1 applic 1 applic DAILY TOPIC 04/17/17 09:00 05/17/17 08:59 04/17/17 10:12 Clonidine HCl 0.1 mg 0.1 mg Q6H PRN ORAL sbp above 160 04/14/17 21:15 05/14/17 21:14 Dextrose (Dextrose 50%) STAT PRN IV Hypoglycemia 04/14/17 20:15 05/14/17 20:14 Diphenhydramine HCl (Benadryl) 25 mg Q6H PRN ORAL Itching/Pruritis 04/14/17 20:15 05/14/17 20:14 Fluconazole/ Sodium Chloride (Diflucan 200mg/ 100ml Premix) 100 ml @ 100 mls/hr Q24H IV 04/16/17 15:00 04/25/17 14:59 04/17/17 14:11 Iron Sucrose 100 mg/Sodium Chloride 60 ml @ 240 mls/hr BEDTIME IVPB 04/16/17 21:00 04/20/17 21:14 04/16/17 21:34 Levothyroxine Sodium (Synthroid) 50 mcg DAILY GT 04/15/17 09:00 05/15/17 08:59 04/17/17 10:12 Metronidazole (Flagyl) 100 ml @ 100 mls/hr Q8HR IVPB 04/15/17 14:00 04/22/17 13:59 04/17/17 14:10 Morphine Sulfate (Morphine Sulfate) 2 mg Q4H PRN IVP Severe Pain (Pain Scale 7-10) 04/14/17 20:15 04/21/17 20:14 04/16/17 09:39 Nitroglycerin (Ntg) 0.4 mg Q5M X 3 DOSES PRN SL Prn Chest Pain 04/14/17 20:15 05/14/17 20:14 Ondansetron HCl (Zofran) 4 mg Q6H PRN IVP Nausea & Vomiting 04/14/17 20:15 05/14/17 20:14 Pantoprazole (Protonix) 40 mg DAILY IVP 04/15/17 09:00 05/15/17 08:59 04/17/17 10:13 Polyethylene Glycol (Miralax) 17 gm HSPRN PRN ORAL Constipation 04/14/17 21:00 05/14/17 20:59 Sodium Chloride (Sodium Chloride 1000ml bag) 1,000 ml @ 100 mls/hr Q10H IV 04/14/17 20:00 05/14/17 19:59 04/17/17 01:43 Sodium Phosphate/ Sodium Chloride (NaPO4/Sodium Chloride) 285 ml @ 47.5 mls/hr ONCE ONCE IVPB 04/17/17 09:30 04/17/17 15:29 04/17/17 10:16 Sucralfate (Carafate) 1 gm FOUR TIMES A DAY GT 04/14/17 21:00 05/14/17 20:59 04/17/17 13:37 Vancomycin HCl 1 ea 1 ea DAILY PRN MISC Per rx protocol 04/15/17 08:30 05/15/17 08:29 Vancomycin HCl 1 gm/Dextrose 275 ml @ 183.708 mls/hr Q12HR@1000,2200 IVPB 04/15/17 10:00 04/20/17 09:59 04/17/17 11:35 Donato Perez M.D. Apr 17, 2017 14:24
[2017-04-17 16:00] VITALS: BP 130/71
[2017-04-17 20:00] VITALS: BP 126/60
[2017-04-17] MEDS: Iron Sucrose 100 MG in NS 55 ML IVPB SCH (21:29)
[2017-04-18] VITALS: BP 123/71
[2017-04-18 04:00] VITALS: BP 121/71
--- NOTE | 2017-04-18 05:38 | Infectious Diseases Prog Note ---
Assessment/Plan Assessment/Plan ASSESSMENT: 66 y/o vent/trach dependent shelter resident, h/o MDRO, admitted with UGIB and a RLL pneumonia and low grade Michael tropicalis UTI, now with petty in place. he has a h/o profound reactive leukocytosis for mild infections (eg. pna, uti), and there could be a reactive component due to the UGIB, but given G tube dislodged, h/o erosive esophagitis, I considered intraabdominal source as a possibility. c diff pcr on stool was ordered but not sent, as he hasn't had diarrhea. He'll have adequate empiric gnr/anaerobic coverage with current cefepime, vancomycin, and flagyl, and he's now defervesced abd x ray unremarkable. given his clinical response and evidence of RLL pneumonia and michael UTI, as long as he continues to improve wouldn't recommend CT a/p at this time. 1) RLL pneumonia, VAP. some component of volume overload on f/u CXR 2) Michael UTI 3) sepsis 4) severe leukocytosis w/ left shift, improved from 31.2 down to 13 5) fever--resolved 6) h/o recurrent aspiration pna/HCAP h/o GGS, MDR-ACB, KPC-Klebsiella pneumoniae, P. stuartii 7) h/o recurrent UTI --h/o CRE-K. pneumoniae, M. morganii, P. mirabilis, ESBL(+) K. 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 C diff stool not yet sent. If confirmed C diff negative, will d /c flagyl. -Continue fluconazole but decrease to 100mg through ngt q24hr D#3/10. monitor LFTs on azole -monitor CBC, temps -f/u stool for C diff -monitor BMP -monitor CXR -contact isolation -vent support, trach care, aspiration precautions -R groin CVC care, d/c when possible to minimize infection risk Subjective ROS Limited/Unobtainable: Yes Allergies: Coded Allergies: NO KNOWN DRUG ALLERGIES (Verified Allergy, Unknown, 09/11/16) Subjective defervesced since 04/14. G tube replaced 04/15.. Objective Vital Signs Last 24 Hour Vital Signs Date Time Temp Pulse Resp B/P Pulse Ox O2 Delivery O2 Flow Rate FiO2 04/18/17 04:59 71 22 35 04/18/17 04:00 98.2 80 20 121/71 98 Mechanical Ventilator 35 04/18/17 04:00 35 04/18/17 04:00 79 04/18/17 03:08 78 25 35 04/18/17 00:27 82 21 35 04/18/17 00:00 97.9 89 20 123/71 100 Mechanical Ventilator 35 04/18/17 00:00 80 04/18/17 00:00 35 04/17/17 22:58 85 17 35 04/17/17 22:58 78 18 100 Mechanical Ventilator 35 04/17/17 22:49 73 14 100 Mechanical Ventilator 35 04/17/17 22:49 35 04/17/17 21:10 84 24 35 04/17/17 20:00 35 04/17/17 20:00 98.6 78 20 126/60 99 Mechanical Ventilator 35 04/17/17 19:24 81 20 35 04/17/17 19:19 75 04/17/17 17:17 82 25 35 04/17/17 16:12 79 04/17/17 16:00 98.2 83 24 130/71 99 Mechanical Ventilator 35 04/17/17 16:00 35 04/17/17 15:04 78 18 100 Mechanical Ventilator 35 04/17/17 15:04 35 04/17/17 15:04 76 17 35 04/17/17 15:04 76 17 100 Mechanical Ventilator 35 04/17/17 12:50 81 18 35 04/17/17 12:00 98.2 78 17 142/88 100 Mechanical Ventilator 35 04/17/17 11:23 83 04/17/17 11:23 35 04/17/17 10:39 89 20 35 04/17/17 10:12 76 132/78 04/17/17 09:07 76 20 35 04/17/17 08:00 83 04/17/17 08:00 98.6 83 20 132/78 100 Mechanical Ventilator 35 04/17/17 08:00 35 04/17/17 07:19 80 20 100 Mechanical Ventilator 35 04/17/17 07:13 81 21 35 04/17/17 07:09 82 20 98 Mechanical Ventilator 35 Height (Feet): 5 Height (Inches): 6.00 Weight (Pounds): 138 Objective GEN: awake, alert, doesn't respond to commands, non toxic appearing, on mechanical vent through trach, FIO2 35% HEENT: Mild pale conjunctiva. oral mucosa dry, pharynx w/o exudate or effusion. No icterus. Head normocephalic, neck supple. NECK: No cervical LAD CHEST: Clear to auscultation bilaterally except diminished breath sounds at R lung base. scant but tenacious trach aspirates. HEART: S1 and S2, no murmurs, no rubs. ABDOMEN: soft, non tender, non distended, normoactive bowel sounds. g tube replaced. site is without surrounding cellulitis EXTREMITIES: No cyanosis, no clubbing, no edema. R inguinal CVC NEUROLOGIC: Awake, alert, no focal neurologic motor deficits. : petty in place draining clear yellow urine LYMPH: no LAD RECTAL: deferred SKIN: scattered non vesicular rash, mild, primarily on abdomen, spares intertriginous regions not c/w scabies Laboratory Tests Test 04/18/17 04:00 White Blood Count Pending Red Blood Count Pending Hemoglobin Pending Hematocrit Pending Mean Corpuscular Volume Pending Mean Corpuscular Hemoglobin Pending Mean Corpuscular Hemoglobin Concent Pending Red Cell Distribution Width Pending Platelet Count Pending Mean Platelet Volume Pending Neutrophils (%) (Auto) Pending Lymphocytes (%) (Auto) Pending Monocytes (%) (Auto) Pending Eosinophils (%) (Auto) Pending Basophils (%) (Auto) Pending Prothrombin Time Pending Prothromb Time International Ratio Pending Activated Partial Thromboplast Time Pending Sodium Level Pending Potassium Level Pending Chloride Level Pending Carbon Dioxide Level Pending Blood Urea Nitrogen Pending Creatinine Pending Estimat Glomerular Filtration Rate Pending Glucose Level Pending Calcium Level Pending Phosphorus Level Pending Magnesium Level Pending Total Bilirubin Pending Aspartate Amino Transf (AST/SGOT) Pending Alanine Aminotransferase (ALT/SGPT) Pending Alkaline Phosphatase Pending Total Protein Pending Albumin Pending Globulin Pending Current Medications Medications (Trade) Dose Ordered Sig/Wanda Route PRN Reason Start Time Stop Time Status Last Admin Dose Admin Acetaminophen (Tylenol) 650 mg Q4H PRN ORAL T>100.5 04/14/17 20:15 05/14/17 20:14 Acetaminophen (Tylenol) 650 mg Q4H PRN RECTAL Mild Pain (Pain Scale 1-3) 04/14/17 20:13 05/14/17 19:44 Al Hydroxide/Mg Hydroxide (Mylanta II) 30 ml Q6H PRN ORAL dyspepsia 04/14/17 20:15 05/14/17 20:14 Albuterol/ Ipratropium (DuoNeb 0.5-3(2.5)mg/3ml) 3 ml Q8HRT HHN 04/14/17 23:00 04/19/17 22:59 04/17/17 22:57 Amlodipine Besylate (Norvasc) 2.5 mg DAILY ORAL 04/15/17 09:00 05/15/17 08:59 04/17/17 10:12 Cefepime HCl 2 gm/ Dextrose 110 ml @ 220 mls/hr EVERY 12 HOURS IV 04/15/17 09:00 04/22/17 08:59 04/17/17 21:29 Chlorhexidine Gluconate (Jasmin-Hex 2%) 1 applic DAILY TOPIC 04/17/17 09:00 05/17/17 08:59 04/17/17 10:12 Clonidine HCl 0.1 mg 0.1 mg Q6H PRN ORAL sbp above 160 04/14/17 21:15 05/14/17 21:14 Dextrose (Dextrose 50%) STAT PRN IV Hypoglycemia 04/14/17 20:15 05/14/17 20:14 Diphenhydramine HCl (Benadryl) 25 mg Q6H PRN ORAL Itching/Pruritis 04/14/17 20:15 05/14/17 20:14 Fluconazole/ Sodium Chloride (Diflucan 200mg/ 100ml Premix) 100 ml @ 100 mls/hr Q24H IV 04/16/17 15:00 04/25/17 14:59 04/17/17 14:11 Iron Sucrose 100 mg/Sodium Chloride 60 ml @ 240 mls/hr BEDTIME IVPB 04/16/17 21:00 04/20/17 21:14 04/17/17 21:29 Levothyroxine Sodium (Synthroid) 50 mcg DAILY GT 04/15/17 09:00 05/15/17 08:59 04/17/17 10:12 Metronidazole (Flagyl) 100 ml @ 100 mls/hr Q8HR IVPB 04/15/17 14:00 04/22/17 13:59 04/17/17 22:32 Morphine Sulfate (Morphine Sulfate) 2 mg Q4H PRN IVP Severe Pain (Pain Scale 7-10) 04/14/17 20:15 04/21/17 20:14 04/16/17 09:39 Nitroglycerin (Ntg) 0.4 mg Q5M X 3 DOSES PRN SL Prn Chest Pain 04/14/17 20:15 05/14/17 20:14 Ondansetron HCl (Zofran) 4 mg Q6H PRN IVP Nausea & Vomiting 04/14/17 20:15 05/14/17 20:14 Pantoprazole (Protonix) 40 mg DAILY IVP 04/15/17 09:00 05/15/17 08:59 04/17/17 10:13 Polyethylene Glycol (Miralax) 17 gm HSPRN PRN ORAL Constipation 04/14/17 21:00 05/14/17 20:59 Sodium Chloride (Sodium Chloride 1000ml bag) 1,000 ml @ 100 mls/hr Q10H IV 04/14/17 20:00 05/14/17 19:59 04/18/17 04:17 Sucralfate (Carafate) 1 gm FOUR TIMES A DAY GT 04/14/17 21:00 05/14/17 20:59 04/17/17 21:31 Vancomycin HCl 1 ea 1 ea DAILY PRN MISC Per rx protocol 04/15/17 08:30 05/15/17 08:29 Vancomycin HCl 1 gm/Dextrose 275 ml @ 183.708 mls/hr Q12HR@1000,2200 IVPB 04/15/17 10:00 04/20/17 09:59 04/17/17 22:33 Donato Perez M.D. Apr 18, 2017 05:38
[2017-04-18 05:42] LABS: BASOPHILS % (AUTO) 0.4 % (0.0-2.0); LYMPHOCYTES % (AUTO) 14.4 % (20.0-45.0); MEAN CORPUSCULAR HEMOGLOBIN 27.1 PG (27.0-31.0); MEAN CORPUSCULAR HGB CONC 32.3 G/DL (32.0-36.0); MEAN CORPUSCULAR VOLUME 84 FL (80-99); MEAN PLATELET VOLUME 7.3 FL (6.5-10.1); MONOCYTES % (AUTO) 8.1 % (1.0-10.0); NEUTROPHILS % (AUTO) 66.1 % (45.0-75.0); PLATELET COUNT 332 K/UL (150-450); RED BLOOD COUNT 3.26 M/UL (4.70-6.10); RED CELL DISTRIBUTION WIDTH 15.5 % (11.6-14.8); WHITE BLOOD COUNT 11.5 K/UL (4.8-10.8)
[2017-04-18 05:57] LABS: ALANINE AMINOTRANSFERASE 12 U/L (3-41); ALBUMIN/GLOBULIN RATIO 0.6 (1.0-2.7); ANION GAP 9 (5-15); ASPARTATE AMINO TRANSFERASE 20 U/L (5-40); CALCIUM 8.3 mg/dL (8.6-10.2); CARBON DIOXIDE 26 mEQ/L (20-30); CHLORIDE 102 mEQ/L (98-107); CREATININE 0.6 mg/dL (0.7-1.2); GLOMERULAR FILTRATION RATE > 60 mL/min (>60); HEMOLYSIS 2; MAGNESIUM 1.5 mg/dL (1.7-2.5); PHOSPHORUS 2.6 mg/dL (2.5-4.8); POTASSIUM 3.6 mEQ/L (3.4-4.9); SODIUM 137 mEQ/L (135-145)
[2017-04-18] MEDS: metroNIDAZOLE 500mg 100 ML IVPB SCH ×3 (05:59→22:02)
[2017-04-18 06:19] LABS: PROTHROMBIN TIME 10.8 SEC (9.30-11.50)
[2017-04-18] MEDS: DuoNeb 0.5-3(2.5)mg/3ml neb HHN SCH ×3 (07:11→22:22)
[2017-04-18 08:00] VITALS: BP 111/55
[2017-04-18] MEDS: Cefepime 2gm/D5W 110ml IV SCH ×4 (08:56→20:43)
[2017-04-18] MEDS: Pantoprazole Inj IVP SCH (08:56)
[2017-04-18] MEDS: Dyna-Hex 2% Top Sol 8oz TOPIC SCH (08:56)
[2017-04-18] MEDS: Sucralfate 1gm tab GT SCH ×4 (08:57→20:43)
[2017-04-18] MEDS: Fluconazole 100mg tab GT SCH (08:57)
[2017-04-18 09:25] LABS: OTHERS PATHOLOGIST COMMENT
[2017-04-18] MEDS: Vancomycin 1gm/D5W 275ml IVPB SCH ×4 (10:00→22:40)
--- NOTE | 2017-04-18 10:23 | GI Progress Note ---
Assessment/Plan Problems: (1) Gastrostomy tube dependent ICD Codes: Z93.1 - Gastrostomy tube dependent SNOMED: 499091077 (2) Hypoalbuminemia ICD Codes: E88.09 - Other disorders of plasma-protein metabolism, not elsewhere classified SNOMED: 361272005 (3) C. difficile colitis ICD Codes: A04.7 - C. difficile colitis SNOMED: 828881909 (4) Dysphagia ICD Codes: R13.10 - Dysphagia, unspecified SNOMED: 47938676, 704407062 (5) Malfunction of gastrostomy tube ICD Codes: K94.23 - Gastrostomy malfunction SNOMED: 792242786 (6) Anemia ICD Codes: D64.9 - Anemia, unspecified SNOMED: 216818033 (7) Protein-calorie malnutrition, severe ICD Codes: E43 - Unspecified severe protein-calorie malnutrition SNOMED: 219815759 (8) Esophagitis ICD Codes: K20.9 - Esophagitis SNOMED: 00407815 Status: stable Status Narrative Discussed with Dr. Wilson. Assessment/Plan GT malfunction >> changed to GT 20fr GTFs per dietary iron deficient, venofer prn transfusions ppi carafate reflux measures stool for C.diff fu labs Subjective Subjective limited Objective Last 24 Hour Vital Signs Date Time Temp Pulse Resp B/P Pulse Ox O2 Delivery O2 Flow Rate FiO2 04/18/17 09:23 68 17 35 04/18/17 08:57 72 111/55 04/18/17 08:00 78 04/18/17 08:00 35 04/18/17 08:00 98.9 72 14 111/55 99 Mechanical Ventilator 35 04/18/17 07:20 81 18 100 Mechanical Ventilator 35 04/18/17 07:11 35 04/18/17 07:11 81 17 100 Mechanical Ventilator 35 04/18/17 07:06 77 30 35 04/18/17 04:59 71 22 35 04/18/17 04:00 98.2 80 20 121/71 98 Mechanical Ventilator 35 04/18/17 04:00 35 04/18/17 04:00 79 04/18/17 03:08 78 25 35 04/18/17 00:27 82 21 35 04/18/17 00:00 97.9 89 20 123/71 100 Mechanical Ventilator 35 04/18/17 00:00 80 04/18/17 00:00 35 04/17/17 22:58 85 17 35 04/17/17 22:58 78 18 100 Mechanical Ventilator 35 04/17/17 22:49 73 14 100 Mechanical Ventilator 35 04/17/17 22:49 35 04/17/17 21:10 84 24 35 04/17/17 20:00 35 04/17/17 20:00 98.6 78 20 126/60 99 Mechanical Ventilator 35 04/17/17 19:24 81 20 35 04/17/17 19:19 75 04/17/17 17:17 82 25 35 04/17/17 16:12 79 04/17/17 16:00 98.2 83 24 130/71 99 Mechanical Ventilator 35 04/17/17 16:00 35 04/17/17 15:04 78 18 100 Mechanical Ventilator 35 04/17/17 15:04 35 04/17/17 15:04 76 17 35 04/17/17 15:04 76 17 100 Mechanical Ventilator 35 04/17/17 12:50 81 18 35 04/17/17 12:00 98.2 78 17 142/88 100 Mechanical Ventilator 35 04/17/17 11:23 83 04/17/17 11:23 35 04/17/17 10:39 89 20 35 Intake and Output 04/17/17 04/18/17 19:00 07:00 Intake Total 2080 ml 1740 ml Output Total 2100 ml 1800 ml Balance -20 ml -60 ml Free Water 200 ml 100 ml IV Total 1085 ml 1200 ml Tube Feeding 495 ml 440 ml Blood Product 300 ml Output Urine Total 2100 ml 1800 ml # Bowel Movements 1 Laboratory Tests Test 04/18/17 04:00 White Blood Count 11.5 K/UL (4.8-10.8) H Red Blood Count 3.26 M/UL (4.70-6.10) L Hemoglobin 8.8 G/DL (14.2-18.0) L Hematocrit 27.3 % (42.0-52.0) L Mean Corpuscular Volume 84 FL (80-99) Mean Corpuscular Hemoglobin 27.1 PG (27.0-31.0) Mean Corpuscular Hemoglobin Concent 32.3 G/DL (32.0-36.0) Red Cell Distribution Width 15.5 % (11.6-14.8) H Platelet Count 332 K/UL (150-450) Mean Platelet Volume 7.3 FL (6.5-10.1) Neutrophils (%) (Auto) 66.1 % (45.0-75.0) Lymphocytes (%) (Auto) 14.4 % (20.0-45.0) L Monocytes (%) (Auto) 8.1 % (1.0-10.0) Eosinophils (%) (Auto) 11.0 % (0.0-3.0) H Basophils (%) (Auto) 0.4 % (0.0-2.0) Prothrombin Time 10.8 SEC (9.30-11.50) Prothromb Time International Ratio 1.0 (0.9-1.1) Activated Partial Thromboplast Time 32 SEC (23-33) Sodium Level 137 mEQ/L (135-145) Potassium Level 3.6 mEQ/L (3.4-4.9) Chloride Level 102 mEQ/L (98-107) Carbon Dioxide Level 26 mEQ/L (20-30) Anion Gap 9 (5-15) Blood Urea Nitrogen 8 mg/dL (7-23) Creatinine 0.6 mg/dL (0.7-1.2) L Estimat Glomerular Filtration Rate > 60 mL/min (>60) Glucose Level 125 mg/dL (74-106) H Calcium Level 8.3 mg/dL (8.6-10.2) L Phosphorus Level 2.6 mg/dL (2.5-4.8) Magnesium Level 1.5 mg/dL (1.7-2.5) L Total Bilirubin < 0.2 mg/dL (0.0-1.2) Aspartate Amino Transf (AST/SGOT) 20 U/L (5-40) Alanine Aminotransferase (ALT/SGPT) 12 U/L (3-41) Alkaline Phosphatase 67 U/L (40-129) Total Protein 6.0 g/dL (6.6-8.7) L Albumin 2.4 g/dL (3.5-5.2) L Globulin 3.6 g/dL Albumin/Globulin Ratio 0.6 (1.0-2.7) L Height (Feet): 5 Height (Inches): 6.00 Weight (Pounds): 138 General Appearance: no apparent distress, alert Cardiovascular: normal rate Respiratory/Chest: [facility] - [facility] Abdominal Exam: GT site - c/d/i Arabella Quesada N.P. Apr 18, 2017 10:23
--- NOTE | 2017-04-18 11:12 | Pulmonology Progress Note ---
Assessment/Plan Problems: (1) Respiratory failure, [id number] (2) Sepsis (3) Aspiration pneumonia (4) UGIB (upper gastrointestinal bleed) (5) Malfunction of gastrostomy tube (6) Protein-calorie malnutrition, severe Respiratory: monitor respiratory rate, adjust FIO2 Cardiac: continue to monitor HR/BP Renal: F/U I&O, keep IV fluid Infectious Disease: check cultures, continue antibiotics Gastrointestinal: continue feedings/current rate Endocrine: monitor blood sugar, check TSH, continue sliding scale insulin Hematologic: monitor H/H, transfuse if hgb<8.5 Neurologic: PRN Ativan, PRN Morphine, keep patient comfortable Affect: PRN ativan Prophylaxis: Protonix, Heparin Notes 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: 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, 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 with: nurses, consultants, protective services case worker Subjective ROS Limited/Unobtainable: No Constitutional: Reports: no symptoms HEENT: Repors: no symptoms Respiratory: Reports: no symptoms Allergies: Coded Allergies: NO KNOWN DRUG ALLERGIES (Verified Allergy, Unknown, 09/11/16) Objective Last 24 Hour Vital Signs Date Time Temp Pulse Resp B/P Pulse Ox O2 Delivery O2 Flow Rate FiO2 04/18/17 09:23 68 17 35 04/18/17 08:57 72 111/55 04/18/17 08:00 78 04/18/17 08:00 35 04/18/17 08:00 98.9 72 14 111/55 99 Mechanical Ventilator 04/18/17 07:20 81 18 100 Mechanical Ventilator 04/18/17 07:11 35 04/18/17 07:11 81 17 100 Mechanical Ventilator 04/18/17 07:06 77 30 35 04/18/17 04:59 71 22 35 04/18/17 04:00 98.2 80 20 121/71 98 Mechanical Ventilator 04/18/17 04:00 35 04/18/17 04:00 79 04/18/17 03:08 78 25 35 04/18/17 00:27 82 21 35 04/18/17 00:00 97.9 89 20 123/71 100 Mechanical Ventilator 04/18/17 00:00 80 04/18/17 00:00 35 04/17/17 22:58 85 17 35 04/17/17 22:58 78 18 100 Mechanical Ventilator 35 04/17/17 22:49 73 14 100 Mechanical Ventilator 35 04/17/17 22:49 35 04/17/17 21:10 84 24 35 04/17/17 20:00 35 04/17/17 20:00 98.6 78 20 126/60 99 Mechanical Ventilator 35 04/17/17 19:24 81 20 35 04/17/17 19:19 75 04/17/17 17:17 82 25 35 04/17/17 16:12 79 04/17/17 16:00 98.2 83 24 130/71 99 Mechanical Ventilator 35 04/17/17 16:00 35 04/17/17 15:04 78 18 100 Mechanical Ventilator 35 04/17/17 15:04 35 04/17/17 15:04 76 17 35 04/17/17 15:04 76 17 100 Mechanical Ventilator 35 04/17/17 12:50 81 18 35 04/17/17 12:00 98.2 78 17 142/88 100 Mechanical Ventilator 35 04/17/17 11:23 83 04/17/17 11:23 35 Intake and Output 04/17/17 04/18/17 19:00 07:00 Intake Total 2080 ml 1740 ml Output Total 2100 ml 1800 ml Balance -20 ml -60 ml Free Water 200 ml 100 ml IV Total 1085 ml 1200 ml Tube Feeding 495 ml 440 ml Blood Product 300 ml Output Urine Total 2100 ml 1800 ml # Bowel Movements 1 General Appearance: WD/WN HEENT: normocephalic, atraumatic Respiratory/Chest: chest wall non-tender, lungs clear Cardiovascular: normal peripheral pulses, normal rate Abdomen: normal bowel sounds, soft, non tender Extremities: no cyanosis, no clubbing Skin: no rash Laboratory Tests 04/18/17 04:00: White Blood Count 11.5H, Red Blood Count 3.26L, Hemoglobin 8.8L, Hematocrit 27.3L, Mean Corpuscular Volume 84, Mean Corpuscular Hemoglobin 27.1, Mean Corpuscular Hemoglobin Concent 32.3, Red Cell Distribution Width 15.5H, Platelet Count 332, Mean Platelet Volume 7.3, Neutrophils (%) (Auto) 66.1, Lymphocytes (%) (Auto) 14.4L, Monocytes (%) (Auto) 8.1, Eosinophils (%) (Auto) 11.0H, Basophils (%) (Auto) 0.4, Prothrombin Time 10.8, Prothromb Time International Ratio 1.0, Activated Partial Thromboplast Time 32, Sodium Level 137, Potassium Level 3.6, Chloride Level 102, Carbon Dioxide Level 26, Anion Gap 9, Blood Urea Nitrogen 8, Creatinine 0.6L, Estimat Glomerular Filtration Rate > 60, Glucose Level 125H, Calcium Level 8.3L, Phosphorus Level 2.6, Magnesium Level 1.5L, Total Bilirubin < 0.2, Aspartate Amino Transf (AST/SGOT) 20, Alanine Aminotransferase (ALT/SGPT) 12, Alkaline Phosphatase 67, Total Protein 6.0L, Albumin 2.4L, Globulin 3.6, Albumin/Globulin Ratio 0.6L Current Medications Medications (Trade) Dose Ordered Sig/Wanda Route PRN Reason Start Time Stop Time Status Last Admin Dose Admin Acetaminophen (Tylenol) 650 mg Q4H PRN ORAL T>100.5 04/14/17 20:15 05/14/17 20:14 Acetaminophen (Tylenol) 650 mg Q4H PRN RECTAL Mild Pain (Pain Scale 1-3) 04/14/17 20:13 05/14/17 19:44 Al Hydroxide/Mg Hydroxide (Mylanta II) 30 ml Q6H PRN ORAL dyspepsia 04/14/17 20:15 05/14/17 20:14 Albuterol/ Ipratropium (DuoNeb 0.5-3(2.5)mg/3ml) 3 ml Q8HRT HHN 04/14/17 23:00 04/19/17 22:59 04/18/17 07:11 Amlodipine Besylate (Norvasc) 2.5 mg DAILY ORAL 04/15/17 09:00 05/15/17 08:59 04/17/17 10:12 Cefepime HCl 2 gm/ Dextrose 110 ml @ 220 mls/hr EVERY 12 HOURS IV 04/15/17 09:00 04/22/17 08:59 04/18/17 08:56 Chlorhexidine Gluconate (Jasmin-Hex 2%) 1 applic DAILY TOPIC 04/17/17 09:00 05/17/17 08:59 04/18/17 08:56 Clonidine HCl 0.1 mg 0.1 mg Q6H PRN ORAL sbp above 160 04/14/17 21:15 05/14/17 21:14 Dextrose (Dextrose 50%) STAT PRN IV Hypoglycemia 04/14/17 20:15 05/14/17 20:14 Diphenhydramine HCl (Benadryl) 25 mg Q6H PRN ORAL Itching/Pruritis 04/14/17 20:15 05/14/17 20:14 Fluconazole 100 mg 100 mg DAILY GT 04/18/17 09:00 04/26/17 08:59 04/18/17 08:57 Iron Sucrose/ Sodium Chloride (Venofer/Sodium Chloride) 60 ml @ 240 mls/hr BEDTIME IVPB 04/16/17 21:00 04/20/17 21:14 04/17/17 21:29 Levothyroxine Sodium (Synthroid) 50 mcg DAILY GT 04/15/17 09:00 05/15/17 08:59 04/18/17 08:57 Magnesium Sulfate (Magnesium Sulfate 1gm/100ml) 100 ml @ 100 mls/hr Q1H IVPB 04/18/17 11:00 04/18/17 12:59 Metronidazole (Flagyl) 100 ml @ 100 mls/hr Q8HR IVPB 04/15/17 14:00 04/22/17 13:59 04/18/17 05:59 Morphine Sulfate (Morphine Sulfate) 2 mg Q4H PRN IVP Severe Pain (Pain Scale 7-10) 04/14/17 20:15 04/21/17 20:14 04/16/17 09:39 Nitroglycerin (Ntg) 0.4 mg Q5M X 3 DOSES PRN SL Prn Chest Pain 04/14/17 20:15 05/14/17 20:14 Ondansetron HCl (Zofran) 4 mg Q6H PRN IVP Nausea & Vomiting 04/14/17 20:15 05/14/17 20:14 Pantoprazole (Protonix) 40 mg DAILY IVP 04/15/17 09:00 05/15/17 08:59 04/18/17 08:56 Polyethylene Glycol (Miralax) 17 gm HSPRN PRN ORAL Constipation 04/14/17 21:00 05/14/17 20:59 Sodium Chloride (Sodium Chloride 1000ml bag) 1,000 ml @ 100 mls/hr Q10H IV 04/14/17 20:00 05/14/17 19:59 04/18/17 04:17 Sucralfate (Carafate) 1 gm FOUR TIMES A DAY GT 04/14/17 21:00 05/14/17 20:59 04/18/17 08:57 Vancomycin HCl 1 ea 1 ea DAILY PRN MISC Per rx protocol 04/15/17 08:30 05/15/17 08:29 Vancomycin HCl 1 gm/Dextrose 275 ml @ 183.708 mls/hr Q12HR@1000,2200 IVPB 04/15/17 10:00 04/20/17 09:59 04/18/17 10:00 MIKAYLA WILLOUGHBY Apr 18, 2017 11:12
[2017-04-18 12:00] VITALS: BP 119/81
[2017-04-18 16:00] VITALS: BP 123/73
[2017-04-18 20:19] VITALS: BP 118/74
[2017-04-18] MEDS: Iron Sucrose 100 MG in NS 55 ML IVPB SCH (20:43)
[2017-04-19] VITALS: BP 121/60
[2017-04-19 04:00] VITALS: BP 107/84
[2017-04-19 04:54] LABS: MEAN CORPUSCULAR HGB CONC 32.1 G/DL (32.0-36.0); MEAN CORPUSCULAR VOLUME 84 FL (80-99); MEAN PLATELET VOLUME 7.4 FL (6.5-10.1); PLATELET COUNT 382 K/UL (150-450); RED BLOOD COUNT 3.73 M/UL (4.70-6.10); RED CELL DISTRIBUTION WIDTH 15.5 % (11.6-14.8); WHITE BLOOD COUNT 18.7 K/UL (4.8-10.8)
[2017-04-19 05:13] LABS: ALANINE AMINOTRANSFERASE 16 U/L (3-41); ALBUMIN/GLOBULIN RATIO 0.7 (1.0-2.7); ANION GAP 10 (5-15); ASPARTATE AMINO TRANSFERASE 27 U/L (5-40); CALCIUM 8.3 mg/dL (8.6-10.2); CARBON DIOXIDE 24 mEQ/L (20-30); CHLORIDE 101 mEQ/L (98-107); CREATININE 0.6 mg/dL (0.7-1.2); GLOMERULAR FILTRATION RATE > 60 mL/min (>60); HEMOLYSIS 28; MAGNESIUM 1.9 mg/dL (1.7-2.5); POTASSIUM 3.5 mEQ/L (3.4-4.9); SODIUM 135 mEQ/L (135-145); TOTAL PROTEIN 6.4 g/dL (6.6-8.7)
[2017-04-19] MEDS: metroNIDAZOLE 500mg 100 ML IVPB SCH ×3 (05:17→21:45)
[2017-04-19 07:11] LABS: ANISOCYTOSIS 1+; BAND NEUTROPHILS % (MANUAL) 0 % (0-8); BASOPHILS % (MANUAL) 0 % (0-2); EOSINOPHILS % (MANUAL) 2 % (0-3); HYPOCHROMASIA 1+; LYMPHOCYTES % (MANUAL) 8 % (20-45); NEUTROPHILS % (MANUAL) 88 % (45-75); PLATELET ESTIMATE ADEQUATE; PLATELET MORPHOLOGY NORMAL; TOTAL CELLS COUNTED 100
[2017-04-19] MEDS: DuoNeb 0.5-3(2.5)mg/3ml neb HHN SCH ×2 (07:46→15:09)
[2017-04-19 08:00] VITALS: BP 150/71
[2017-04-19] MEDS: Fluconazole 100mg tab GT SCH (08:54)
[2017-04-19] MEDS: Dyna-Hex 2% Top Sol 8oz TOPIC SCH (08:54)
[2017-04-19] MEDS: Sucralfate 1gm tab GT SCH ×4 (08:54→20:26)
[2017-04-19] MEDS: Pantoprazole Inj IVP SCH (08:54)
[2017-04-19] MEDS: Cefepime 2gm/D5W 110ml IV SCH ×4 (08:56→20:27)
[2017-04-19] MEDS: Vancomycin 1gm/D5W 275ml IVPB SCH ×4 (10:21→21:45)
--- NOTE | 2017-04-19 10:32 | Pulmonology Progress Note ---
Assessment/Plan Problems: (1) Respiratory failure, [id number] (2) Sepsis (3) Aspiration pneumonia (4) UGIB (upper gastrointestinal bleed) (5) Malfunction of gastrostomy tube (6) Protein-calorie malnutrition, severe Respiratory: monitor respiratory rate, adjust FIO2, CXR Cardiac: continue to monitor HR/BP Renal: F/U I&O, keep IV fluid, check electrolytes Infectious Disease: check cultures, continue antibiotics Gastrointestinal: continue feedings/current rate Endocrine: monitor blood sugar Hematologic: monitor H/H Neurologic: PRN Morphine Affect: PRN ativan Prophylaxis: Protonix, Heparin Notes Reviewed: cardio, 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 with: nurses, consultants, pillowcase 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 Subjective ROS Limited/Unobtainable: No Constitutional: Reports: no symptoms HEENT: Repors: no symptoms Respiratory: Reports: no symptoms Allergies: Coded Allergies: NO KNOWN DRUG ALLERGIES (Verified Allergy, Unknown, 09/11/16) Objective Last 24 Hour Vital Signs Date Time Temp Pulse Resp B/P Pulse Ox O2 Delivery O2 Flow Rate FiO2 04/19/17 09:22 113 25 35 04/19/17 08:54 133 150/71 04/19/17 08:00 35 04/19/17 08:00 125 04/19/17 08:00 100.9 133 32 150/71 95 Mechanical Ventilator 35 04/19/17 07:47 Mechanical Ventilator 04/19/17 07:45 128 28 98 Mechanical Ventilator 35 04/19/17 07:40 129 30 35 04/19/17 05:28 117 28 35 04/19/17 04:00 35 04/19/17 04:00 99.1 113 22 107/84 94 Mechanical Ventilator 35 04/19/17 04:00 97 04/19/17 03:25 88 20 35 04/19/17 01:09 92 24 35 04/19/17 00:00 90 04/19/17 00:00 35 04/19/17 00:00 98.7 101 32 121/60 100 Mechanical Ventilator 35 04/18/17 22:46 65 24 35 04/18/17 22:40 62 20 99 Mechanical Ventilator 35 04/18/17 22:21 35 04/18/17 22:19 55 21 96 Mechanical Ventilator 04/18/17 21:29 68 18 35 04/18/17 20:19 98.6 82 20 118/74 98 Mechanical Ventilator 35 04/18/17 20:00 75 04/18/17 20:00 35 04/18/17 19:24 64 19 35 04/18/17 17:02 81 17 35 04/18/17 16:00 98.1 63 14 123/73 99 Mechanical Ventilator 35 04/18/17 16:00 69 04/18/17 16:00 35 04/18/17 15:47 75 18 100 Mechanical Ventilator 35 04/18/17 15:36 71 20 100 Mechanical Ventilator 35 04/18/17 15:36 35 04/18/17 15:30 76 20 35 04/18/17 13:30 81 24 35 04/18/17 12:00 35 04/18/17 12:00 99.1 81 16 119/81 100 Mechanical Ventilator 35 04/18/17 12:00 79 04/18/17 11:21 71 17 35 Intake and Output 04/18/17 04/19/17 19:00 07:00 Intake Total 2242.4 ml 2665.000 ml Output Total 1950 ml 3800 ml Balance 292.4 ml -1135.000 ml Free Water 100 ml 200 ml IV Total 1437.4 ml 1745.000 ml Tube Feeding 605 ml 660 ml Blood Product 50 ml Other 50 ml 60 ml Output Urine Total 1950 ml 3800 ml Objective wbc rising, tachycardic, vomiting a lot. 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 II-XII grossly normal, no motor/sensory deficits Lymphatic: no neck adenopathy Musculoskeletal: normal muscle bulk Laboratory Tests 04/19/17 04:00: White Blood Count 18.7#H, Red Blood Count 3.73L, Hemoglobin 10.1L, Hematocrit 31.3L, Mean Corpuscular Volume 84, Mean Corpuscular Hemoglobin 27.0, Mean Corpuscular Hemoglobin Concent 32.1, Red Cell Distribution Width 15.5H, Platelet Count 382, Mean Platelet Volume 7.4, Neutrophils (%) (Auto) , Lymphocytes (%) (Auto) , Monocytes (%) (Auto) , Eosinophils (%) (Auto) , Basophils (%) (Auto) , Differential Total Cells Counted 100, Neutrophils % ( Manual) 88H, Lymphocytes % (Manual) 8L, Monocytes % (Manual) 2, Eosinophils % ( Manual) 2, Basophils % (Manual) 0, Band Neutrophils 0, Platelet Estimate Adequate, Platelet Morphology Normal, Hypochromasia 1+, Anisocytosis 1+, Sodium Level 135, Potassium Level 3.5, Chloride Level 101, Carbon Dioxide Level 24, Anion Gap 10, Blood Urea Nitrogen 6L, Creatinine 0.6L, Estimat Glomerular Filtration Rate > 60, Glucose Level 127H, Calcium Level 8.3L, Phosphorus Level 2.7, Magnesium Level 1.9, Total Bilirubin 0.2, Aspartate Amino Transf (AST/SGOT ) 27, Alanine Aminotransferase (ALT/SGPT) 16, Alkaline Phosphatase 63, Total Protein 6.4L, Albumin 2.8L, Globulin 3.6, Albumin/Globulin Ratio 0.7L Current Medications Medications (Trade) Dose Ordered Sig/Wanda Route PRN Reason Start Time Stop Time Status Last Admin Dose Admin Acetaminophen (Tylenol) 650 mg Q4H PRN ORAL T>100.5 04/14/17 20:15 05/14/17 20:14 Acetaminophen (Tylenol) 650 mg Q4H PRN RECTAL Mild Pain (Pain Scale 1-3) 04/14/17 20:13 05/14/17 19:44 Al Hydroxide/Mg Hydroxide (Mylanta II) 30 ml Q6H PRN ORAL dyspepsia 04/14/17 20:15 05/14/17 20:14 Albuterol/ Ipratropium (DuoNeb 0.5-3(2.5)mg/3ml) 3 ml Q8HRT HHN 04/14/17 23:00 04/19/17 22:59 04/18/17 22:22 Amlodipine Besylate (Norvasc) 2.5 mg DAILY ORAL 04/15/17 09:00 05/15/17 08:59 04/19/17 08:54 Cefepime HCl 2 gm/ Dextrose 110 ml @ 220 mls/hr EVERY 12 HOURS IV 04/15/17 09:00 04/22/17 08:59 04/19/17 08:56 Chlorhexidine Gluconate (Jasmin-Hex 2%) 1 applic DAILY TOPIC 04/17/17 09:00 05/17/17 08:59 04/19/17 08:54 Clonidine HCl 0.1 mg 0.1 mg Q6H PRN ORAL sbp above 160 04/14/17 21:15 05/14/17 21:14 Dextrose (Dextrose 50%) STAT PRN IV Hypoglycemia 04/14/17 20:15 05/14/17 20:14 Diphenhydramine HCl (Benadryl) 25 mg Q6H PRN ORAL Itching/Pruritis 04/14/17 20:15 05/14/17 20:14 Fluconazole (Diflucan) 100 mg DAILY GT 04/18/17 09:00 04/26/17 08:59 04/19/17 08:54 Iron Sucrose/ Sodium Chloride (Venofer/Sodium Chloride) 60 ml @ 240 mls/hr BEDTIME IVPB 04/16/17 21:00 04/20/17 21:14 04/18/17 20:43 Levothyroxine Sodium (Synthroid) 50 mcg DAILY GT 04/15/17 09:00 05/15/17 08:59 04/19/17 08:54 Metronidazole (Flagyl) 100 ml @ 100 mls/hr Q8HR IVPB 04/15/17 14:00 04/22/17 13:59 04/19/17 05:17 Morphine Sulfate (Morphine Sulfate) 2 mg Q4H PRN IVP Severe Pain (Pain Scale 7-10) 04/14/17 20:15 04/21/17 20:14 04/16/17 09:39 Nitroglycerin (Ntg) 0.4 mg Q5M X 3 DOSES PRN SL Prn Chest Pain 04/14/17 20:15 05/14/17 20:14 Ondansetron HCl (Zofran) 4 mg Q6H PRN IVP Nausea & Vomiting 04/14/17 20:15 05/14/17 20:14 04/19/17 08:54 Pantoprazole (Protonix) 40 mg DAILY IVP 04/15/17 09:00 05/15/17 08:59 04/19/17 08:54 Polyethylene Glycol (Miralax) 17 gm HSPRN PRN ORAL Constipation 04/14/17 21:00 05/14/17 20:59 Sodium Chloride (Sodium Chloride 1000ml bag) 1,000 ml @ 100 mls/hr Q10H IV 04/14/17 20:00 05/14/17 19:59 04/19/17 10:21 Sucralfate (Carafate) 1 gm FOUR TIMES A DAY GT 04/14/17 21:00 05/14/17 20:59 04/19/17 08:54 Vancomycin HCl 1 ea 1 ea DAILY PRN MISC Per rx protocol 04/15/17 08:30 05/15/17 08:29 Vancomycin HCl 1 gm/Dextrose 275 ml @ 183.708 mls/hr Q12HR@1000,2200 IVPB 04/15/17 10:00 04/20/17 09:59 04/19/17 10:21 MIKAYLA WILLOUGHBY Apr 19, 2017 10:32
--- NOTE | 2017-04-19 10:40 | GI Progress Note ---
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 difficile colitis ICD Codes: A04.7 - C. difficile colitis SNOMED: 781598988 (4) Dysphagia ICD Codes: R13.10 - Dysphagia, unspecified SNOMED: 86891598, 979233760 (5) Malfunction of gastrostomy tube ICD Codes: K94.23 - Gastrostomy malfunction SNOMED: 509604417 (6) Anemia ICD Codes: D64.9 - Anemia, unspecified SNOMED: 461488706 (7) Protein-calorie malnutrition, severe ICD Codes: E43 - Unspecified severe protein-calorie malnutrition SNOMED: 583214706 (8) Esophagitis ICD Codes: K20.9 - Esophagitis SNOMED: 16168731 Status: unchanged Status Narrative Discussed with Dr. Wilson. Assessment/Plan GT malfunction >> GT replaced GTFs per dietary iron deficient, venofer stable H&H, prn transfusions ppi carafate reflux measures fu labs Subjective Subjective limited Objective Last 24 Hour Vital Signs Date Time Temp Pulse Resp B/P Pulse Ox O2 Delivery O2 Flow Rate FiO2 04/19/17 09:22 113 25 35 04/19/17 08:54 133 150/71 04/19/17 08:00 35 04/19/17 08:00 125 04/19/17 08:00 100.9 133 32 150/71 95 Mechanical Ventilator 35 04/19/17 07:47 Mechanical Ventilator 04/19/17 07:45 128 28 98 Mechanical Ventilator 35 04/19/17 07:40 129 30 35 04/19/17 05:28 117 28 35 04/19/17 04:00 35 04/19/17 04:00 99.1 113 22 107/84 94 Mechanical Ventilator 35 04/19/17 04:00 97 04/19/17 03:25 88 20 35 04/19/17 01:09 92 24 35 04/19/17 00:00 90 04/19/17 00:00 35 04/19/17 00:00 98.7 101 32 121/60 100 Mechanical Ventilator 35 04/18/17 22:46 65 24 35 04/18/17 22:40 62 20 99 Mechanical Ventilator 35 04/18/17 22:21 35 04/18/17 22:19 55 21 96 Mechanical Ventilator 35 04/18/17 21:29 68 18 35 04/18/17 20:19 98.6 82 20 118/74 98 Mechanical Ventilator 04/18/17 20:00 75 04/18/17 20:00 35 04/18/17 19:24 64 19 35 04/18/17 17:02 81 17 35 04/18/17 16:00 98.1 63 14 123/73 99 Mechanical Ventilator 04/18/17 16:00 69 04/18/17 16:00 35 04/18/17 15:47 75 18 100 Mechanical Ventilator 04/18/17 15:36 71 20 100 Mechanical Ventilator 35 04/18/17 15:36 35 04/18/17 15:30 76 20 35 04/18/17 13:30 81 24 35 04/18/17 12:00 35 04/18/17 12:00 99.1 81 16 119/81 100 Mechanical Ventilator 04/18/17 12:00 79 04/18/17 11:21 71 17 35 Intake and Output 04/18/17 04/19/17 19:00 07:00 Intake Total 2242.4 ml 2665.000 ml Output Total 1950 ml 3800 ml Balance 292.4 ml -1135.000 ml Free Water 100 ml 200 ml IV Total 1437.4 ml 1745.000 ml Tube Feeding 605 ml 660 ml Blood Product 50 ml Other 50 ml 60 ml Output Urine Total 1950 ml 3800 ml Laboratory Tests Test 04/19/17 04:00 White Blood Count 18.7 K/UL (4.8-10.8) #H Red Blood Count 3.73 M/UL (4.70-6.10) L Hemoglobin 10.1 G/DL (14.2-18.0) L Hematocrit 31.3 % (42.0-52.0) L Mean Corpuscular Volume 84 FL (80-99) Mean Corpuscular Hemoglobin 27.0 PG (27.0-31.0) Mean Corpuscular Hemoglobin Concent 32.1 G/DL (32.0-36.0) Red Cell Distribution Width 15.5 % (11.6-14.8) H Platelet Count 382 K/UL (150-450) Mean Platelet Volume 7.4 FL (6.5-10.1) Neutrophils (%) (Auto) % (45.0-75.0) Lymphocytes (%) (Auto) % (20.0-45.0) Monocytes (%) (Auto) % (1.0-10.0) Eosinophils (%) (Auto) % (0.0-3.0) Basophils (%) (Auto) % (0.0-2.0) Differential Total Cells Counted 100 Neutrophils % (Manual) 88 % (45-75) H Lymphocytes % (Manual) 8 % (20-45) L Monocytes % (Manual) 2 % (1-10) Eosinophils % (Manual) 2 % (0-3) Basophils % (Manual) 0 % (0-2) Band Neutrophils 0 % (0-8) Platelet Estimate Adequate Platelet Morphology Normal Hypochromasia 1+ Anisocytosis 1+ Sodium Level 135 mEQ/L (135-145) Potassium Level 3.5 mEQ/L (3.4-4.9) Chloride Level 101 mEQ/L (98-107) Carbon Dioxide Level 24 mEQ/L (20-30) Anion Gap 10 (5-15) Blood Urea Nitrogen 6 mg/dL (7-23) L Creatinine 0.6 mg/dL (0.7-1.2) L Estimat Glomerular Filtration Rate > 60 mL/min (>60) Glucose Level 127 mg/dL (74-106) H Calcium Level 8.3 mg/dL (8.6-10.2) L Phosphorus Level 2.7 mg/dL (2.5-4.8) Magnesium Level 1.9 mg/dL (1.7-2.5) Total Bilirubin 0.2 mg/dL (0.0-1.2) Aspartate Amino Transf (AST/SGOT) 27 U/L (5-40) Alanine Aminotransferase (ALT/SGPT) 16 U/L (3-41) Alkaline Phosphatase 63 U/L (40-129) Total Protein 6.4 g/dL (6.6-8.7) L Albumin 2.8 g/dL (3.5-5.2) L Globulin 3.6 g/dL Albumin/Globulin Ratio 0.7 (1.0-2.7) L Height (Feet): 5 Height (Inches): 6.00 Weight (Pounds): 138 General Appearance: no apparent distress, alert, thin Cardiovascular: normal rate Respiratory/Chest: other - mech vent Abdominal Exam: GT site - c/d/i Arabella Quesada N.P. Apr 19, 2017 10:40
[2017-04-19 12:00] VITALS: BP 105/58
[2017-04-19 16:00] VITALS: BP 128/61
[2017-04-19 20:00] VITALS: BP 144/68
[2017-04-19] MEDS: Iron Sucrose 100 MG in NS 55 ML IVPB SCH (20:27)
[2017-04-19] MEDS: Morphine Sulfate 2mg/ml Inj IVP PRN (23:39)
[2017-04-20] VITALS (7 sets, daily range): BP systolic 104–152; BP diastolic 53–73
[2017-04-20] MEDS: metroNIDAZOLE 500mg 100 ML IVPB SCH ×3 (05:31→22:22)
[2017-04-20] MEDS: Morphine Sulfate 2mg/ml Inj IVP PRN (05:32)
[2017-04-20 05:33] LABS: MEAN CORPUSCULAR HEMOGLOBIN 27.2 PG (27.0-31.0); MEAN CORPUSCULAR HGB CONC 32.1 G/DL (32.0-36.0); MEAN CORPUSCULAR VOLUME 85 FL (80-99); MEAN PLATELET VOLUME 7.2 FL (6.5-10.1); PLATELET COUNT 326 K/UL (150-450); RED BLOOD COUNT 3.08 M/UL (4.70-6.10); RED CELL DISTRIBUTION WIDTH 16.1 % (11.6-14.8); WHITE BLOOD COUNT 19.5 K/UL (4.8-10.8)
[2017-04-20 05:55] LABS: ALANINE AMINOTRANSFERASE 12 U/L (3-41); ALBUMIN/GLOBULIN RATIO 0.8 (1.0-2.7); ANION GAP 7 (5-15); ASPARTATE AMINO TRANSFERASE 16 U/L (5-40); CALCIUM 7.9 mg/dL (8.6-10.2); CARBON DIOXIDE 26 mEQ/L (20-30); CHLORIDE 103 mEQ/L (98-107); CREATININE 0.6 mg/dL (0.7-1.2); GLOMERULAR FILTRATION RATE > 60 mL/min (>60); HEMOLYSIS 3; POTASSIUM 3.6 mEQ/L (3.4-4.9); SODIUM 136 mEQ/L (135-145); TOTAL PROTEIN 5.6 g/dL (6.6-8.7)
[2017-04-20 07:54] LABS: ANISOCYTOSIS 1+; BAND NEUTROPHILS % (MANUAL) 0 % (0-8); BASOPHILS % (MANUAL) 0 % (0-2); EOSINOPHILS % (MANUAL) 8 % (0-3); HYPOCHROMASIA 1+; LYMPHOCYTES % (MANUAL) 9 % (20-45); NEUTROPHILS % (MANUAL) 80 % (45-75); PLATELET ESTIMATE ADEQUATE; PLATELET MORPHOLOGY NORMAL; TOTAL CELLS COUNTED 100
[2017-04-20] MEDS: Cefepime 2gm/D5W 110ml IV SCH ×4 (08:23→21:39)
[2017-04-20] MEDS: Sucralfate 1gm tab GT SCH ×4 (08:23→20:32)
[2017-04-20] MEDS: Fluconazole 100mg tab GT SCH (08:23)
[2017-04-20] MEDS: Dyna-Hex 2% Top Sol 8oz TOPIC SCH (08:24)
--- NOTE | 2017-04-20 08:55 | Infectious Diseases Prog Note ---
Assessment/Plan Assessment/Plan A: Sepsis Pneumonia Fungal UTI GT dislodgement, Changed Esophagitis P: Sputum culture, CXR Continue Vancomycin & Cefepime Change of femoral line Subjective ROS Limited/Unobtainable: Yes Respiratory: Reports: productive cough Allergies: Coded Allergies: NO KNOWN DRUG ALLERGIES (Verified Allergy, Unknown, 09/11/16) Objective Vital Signs Last 24 Hour Vital Signs Date Time Temp Pulse Resp B/P Pulse Ox O2 Delivery O2 Flow Rate FiO2 04/20/17 08:23 89 112/68 04/20/17 08:00 35 04/20/17 07:54 97.7 89 20 112/68 98 Mechanical Ventilator 35 04/20/17 06:47 87 19 35 04/20/17 05:23 89 18 35 04/20/17 04:00 98.6 74 21 152/53 99 Mechanical Ventilator 35 04/20/17 04:00 69 04/20/17 04:00 35 04/20/17 03:33 75 17 35 04/20/17 01:31 73 15 35 04/20/17 00:00 98.1 87 21 121/72 99 Mechanical Ventilator 35 04/20/17 00:00 84 04/19/17 23:23 99 24 35 04/19/17 21:00 35 04/19/17 20:58 87 16 35 04/19/17 20:00 88 04/19/17 20:00 35 04/19/17 20:00 99.1 86 21 144/68 99 Mechanical Ventilator 35 04/19/17 19:16 88 20 35 04/19/17 17:02 89 24 35 04/19/17 16:00 35 04/19/17 16:00 97 04/19/17 16:00 98.5 97 21 128/61 99 Mechanical Ventilator 35 04/19/17 15:11 86 15 100 Mechanical Ventilator 35 04/19/17 15:02 35 04/19/17 15:01 86 28 99 Mechanical Ventilator 35 04/19/17 15:00 86 28 35 04/19/17 13:28 98 25 35 04/19/17 12:00 98.4 99 25 105/58 98 Mechanical Ventilator 35 04/19/17 12:00 100 04/19/17 12:00 35 04/19/17 11:06 102 27 35 04/19/17 09:22 113 25 35 04/19/17 08:54 133 150/71 Height (Feet): 5 Height (Inches): 6.00 Weight (Pounds): 138 HEENT: status post trach Respiratory/Chest: other - on ventilator, few rhonchi Cardiovascular: normal rate Abdomen: soft, non tender, other - GT feeding Extremities: no edema, other - R femoral line Neurologic/Psychiatric: other - opens eyes only Laboratory Tests Test 04/20/17 04:00 04/20/17 05:00 White Blood Count 19.5 K/UL (4.8-10.8) H Red Blood Count 3.08 M/UL (4.70-6.10) L Hemoglobin 8.4 G/DL (14.2-18.0) L Hematocrit 26.1 % (42.0-52.0) L Mean Corpuscular Volume 85 FL (80-99) Mean Corpuscular Hemoglobin 27.2 PG (27.0-31.0) Mean Corpuscular Hemoglobin Concent 32.1 G/DL (32.0-36.0) Red Cell Distribution Width 16.1 % (11.6-14.8) H Platelet Count 326 K/UL (150-450) Mean Platelet Volume 7.2 FL (6.5-10.1) Neutrophils (%) (Auto) % (45.0-75.0) Lymphocytes (%) (Auto) % (20.0-45.0) Monocytes (%) (Auto) % (1.0-10.0) Eosinophils (%) (Auto) % (0.0-3.0) Basophils (%) (Auto) % (0.0-2.0) Differential Total Cells Counted 100 Neutrophils % (Manual) 80 % (45-75) H Lymphocytes % (Manual) 9 % (20-45) L Monocytes % (Manual) 3 % (1-10) Eosinophils % (Manual) 8 % (0-3) H Basophils % (Manual) 0 % (0-2) Band Neutrophils 0 % (0-8) Platelet Estimate Adequate Platelet Morphology Normal Hypochromasia 1+ Anisocytosis 1+ Sodium Level 136 mEQ/L (135-145) Potassium Level 3.6 mEQ/L (3.4-4.9) Chloride Level 103 mEQ/L (98-107) Carbon Dioxide Level 26 mEQ/L (20-30) Anion Gap 7 (5-15) Blood Urea Nitrogen 11 mg/dL (7-23) Creatinine 0.6 mg/dL (0.7-1.2) L Estimat Glomerular Filtration Rate > 60 mL/min (>60) Glucose Level 131 mg/dL (74-106) H Calcium Level 7.9 mg/dL (8.6-10.2) L Total Bilirubin 0.2 mg/dL (0.0-1.2) Aspartate Amino Transf (AST/SGOT) 16 U/L (5-40) Alanine Aminotransferase (ALT/SGPT) 12 U/L (3-41) Alkaline Phosphatase 59 U/L (40-129) Pro-B-Type Natriuretic Peptide 1598 pg/mL (0-125) H Total Protein 5.6 g/dL (6.6-8.7) L Albumin 2.5 g/dL (3.5-5.2) L Globulin 3.1 g/dL Albumin/Globulin Ratio 0.8 (1.0-2.7) L Stool Occult Blood Pending Current Medications Medications (Trade) Dose Ordered Sig/Wanda Route PRN Reason Start Time Stop Time Status Last Admin Dose Admin Acetaminophen (Tylenol) 650 mg Q4H PRN ORAL T>100.5 04/14/17 20:15 05/14/17 20:14 Acetaminophen (Tylenol) 650 mg Q4H PRN RECTAL Mild Pain (Pain Scale 1-3) 04/14/17 20:13 05/14/17 19:44 Al Hydroxide/Mg Hydroxide (Mylanta II) 30 ml Q6H PRN ORAL dyspepsia 04/14/17 20:15 05/14/17 20:14 Amlodipine Besylate (Norvasc) 2.5 mg DAILY ORAL 04/15/17 09:00 05/15/17 08:59 04/20/17 08:23 Cefepime HCl 2 gm/ Dextrose 110 ml @ 220 mls/hr EVERY 12 HOURS IV 04/15/17 09:00 04/22/17 08:59 04/20/17 08:23 Chlorhexidine Gluconate (Jasmin-Hex 2%) 1 applic DAILY TOPIC 04/17/17 09:00 05/17/17 08:59 04/20/17 08:24 Clonidine HCl 0.1 mg 0.1 mg Q6H PRN ORAL sbp above 160 8/5/17 21:15 05/14/17 21:14 Dextrose (Dextrose 50%) STAT PRN IV Hypoglycemia 04/14/17 20:15 05/14/17 20:14 Diphenhydramine HCl (Benadryl) 25 mg Q6H PRN ORAL Itching/Pruritis 04/14/17 20:15 05/14/17 20:14 04/19/17 17:10 Fluconazole (Diflucan) 100 mg DAILY GT 04/18/17 09:00 04/26/17 08:59 04/20/17 08:23 Iron Sucrose/ Sodium Chloride (Venofer/Sodium Chloride) 60 ml @ 240 mls/hr BEDTIME IVPB 04/16/17 21:00 04/20/17 21:14 04/19/17 20:27 Lansoprazole (Prevacid) 30 mg DAILY GT 04/20/17 09:00 05/20/17 08:59 04/20/17 08:23 Levothyroxine Sodium (Synthroid) 50 mcg DAILY GT 04/15/17 09:00 05/15/17 08:59 04/20/17 08:24 Metronidazole (Flagyl) 100 ml @ 100 mls/hr Q8HR IVPB 04/15/17 14:00 04/22/17 13:59 04/20/17 05:31 Morphine Sulfate (Morphine Sulfate) 2 mg Q4H PRN IVP Severe Pain (Pain Scale 7-10) 04/14/17 20:15 04/21/17 20:14 04/20/17 05:32 Nitroglycerin (Ntg) 0.4 mg Q5M X 3 DOSES PRN SL Prn Chest Pain 04/14/17 20:15 05/14/17 20:14 Ondansetron HCl (Zofran) 4 mg Q6H PRN IVP Nausea & Vomiting 04/14/17 20:15 05/14/17 20:14 04/19/17 08:54 Polyethylene Glycol (Miralax) 17 gm HSPRN PRN ORAL Constipation 04/14/17 21:00 05/14/17 20:59 Sodium Chloride (Sodium Chloride 1000ml bag) 1,000 ml @ 100 mls/hr Q10H IV 04/14/17 20:00 05/14/17 19:59 04/20/17 04:40 Sucralfate (Carafate) 1 gm FOUR TIMES A DAY GT 04/14/17 21:00 05/14/17 20:59 04/20/17 08:23 Vancomycin HCl 1 ea 1 ea DAILY PRN MISC Per rx protocol 04/15/17 08:30 05/15/17 08:29 Vancomycin HCl 1 gm/Dextrose 275 ml @ 183.708 mls/hr Q12HR@1000,2200 IVPB 04/15/17 10:00 04/20/17 23:59 04/19/17 21:45 SHANNA BERRY Apr 20, 2017 08:55
[2017-04-20] MEDS: Vancomycin 1gm/D5W 275ml IVPB SCH ×4 (09:19→22:26)
[2017-04-20] MEDS ORDERED: Tubing IV Secondary IV ONE (10:38)
[2017-04-20] MEDS ORDERED: NS 275ml ONE (10:38)
--- NOTE | 2017-04-20 10:40 | GI Progress Note ---
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 difficile colitis ICD Codes: A04.7 - C. difficile colitis SNOMED: 132833795 (4) Dysphagia ICD Codes: R13.10 - Dysphagia, unspecified SNOMED: 87023226, 811001713 (5) Malfunction of gastrostomy tube ICD Codes: K94.23 - Gastrostomy malfunction SNOMED: 627911466 (6) Anemia ICD Codes: D64.9 - Anemia, unspecified SNOMED: 278528703 (7) Protein-calorie malnutrition, severe ICD Codes: E43 - Unspecified severe protein-calorie malnutrition SNOMED: 434690894 (8) Esophagitis ICD Codes: K20.9 - Esophagitis SNOMED: 19418753 Status: unchanged Status Narrative Discussed with Dr. Wilson. Assessment/Plan GT malfunction >> GT replaced fu OB stool GTFs per dietary iron deficient, venofer stable H&H, prn transfusions ppi carafate reflux measures fu labs Subjective Subjective limited Objective Last 24 Hour Vital Signs Date Time Temp Pulse Resp B/P Pulse Ox O2 Delivery O2 Flow Rate FiO2 04/20/17 09:03 87 26 35 04/20/17 08:23 89 112/68 04/20/17 08:00 77 04/20/17 08:00 35 04/20/17 07:54 97.7 89 20 112/68 98 Mechanical Ventilator 35 04/20/17 06:47 87 19 35 04/20/17 05:23 89 18 35 04/20/17 04:00 98.6 74 21 152/53 99 Mechanical Ventilator 35 04/20/17 04:00 69 04/20/17 04:00 35 04/20/17 03:33 75 17 35 04/20/17 01:31 73 15 35 04/20/17 00:00 98.1 87 21 121/72 99 Mechanical Ventilator 35 04/20/17 00:00 84 04/19/17 23:23 99 24 35 04/19/17 21:00 35 04/19/17 20:58 87 16 35 04/19/17 20:00 88 04/19/17 20:00 35 04/19/17 20:00 99.1 86 21 144/68 99 Mechanical Ventilator 35 04/19/17 19:16 88 20 35 04/19/17 17:02 89 24 35 04/19/17 16:00 35 04/19/17 16:00 97 04/19/17 16:00 98.5 97 21 128/61 99 Mechanical Ventilator 35 04/19/17 15:11 86 15 100 Mechanical Ventilator 35 04/19/17 15:02 35 04/19/17 15:01 86 28 99 Mechanical Ventilator 35 04/19/17 15:00 86 28 35 04/19/17 13:28 98 25 35 04/19/17 12:00 98.4 99 25 105/58 98 Mechanical Ventilator 35 04/19/17 12:00 100 04/19/17 12:00 35 04/19/17 11:06 102 27 35 Intake and Output 04/19/17 04/20/17 19:00 07:00 Intake Total 2215 ml 2073.708 ml Output Total 450 ml 1600 ml Balance 1765 ml 473.708 ml IV Total 1685 ml 1383.708 ml Tube Feeding 440 ml 660 ml Other 90 ml 30 ml Output Urine Total 450 ml 1600 ml # Bowel Movements 3 Laboratory Tests Test 04/20/17 04:00 04/20/17 05:00 White Blood Count 19.5 K/UL (4.8-10.8) H Red Blood Count 3.08 M/UL (4.70-6.10) L Hemoglobin 8.4 G/DL (14.2-18.0) L Hematocrit 26.1 % (42.0-52.0) L Mean Corpuscular Volume 85 FL (80-99) Mean Corpuscular Hemoglobin 27.2 PG (27.0-31.0) Mean Corpuscular Hemoglobin Concent 32.1 G/DL (32.0-36.0) Red Cell Distribution Width 16.1 % (11.6-14.8) H Platelet Count 326 K/UL (150-450) Mean Platelet Volume 7.2 FL (6.5-10.1) Neutrophils (%) (Auto) % (45.0-75.0) Lymphocytes (%) (Auto) % (20.0-45.0) Monocytes (%) (Auto) % (1.0-10.0) Eosinophils (%) (Auto) % (0.0-3.0) Basophils (%) (Auto) % (0.0-2.0) Differential Total Cells Counted 100 Neutrophils % (Manual) 80 % (45-75) H Lymphocytes % (Manual) 9 % (20-45) L Monocytes % (Manual) 3 % (1-10) Eosinophils % (Manual) 8 % (0-3) H Basophils % (Manual) 0 % (0-2) Band Neutrophils 0 % (0-8) Platelet Estimate Adequate Platelet Morphology Normal Hypochromasia 1+ Anisocytosis 1+ Sodium Level 136 mEQ/L (135-145) Potassium Level 3.6 mEQ/L (3.4-4.9) Chloride Level 103 mEQ/L (98-107) Carbon Dioxide Level 26 mEQ/L (20-30) Anion Gap 7 (5-15) Blood Urea Nitrogen 11 mg/dL (7-23) Creatinine 0.6 mg/dL (0.7-1.2) L Estimat Glomerular Filtration Rate > 60 mL/min (>60) Glucose Level 131 mg/dL (74-106) H Calcium Level 7.9 mg/dL (8.6-10.2) L Total Bilirubin 0.2 mg/dL (0.0-1.2) Aspartate Amino Transf (AST/SGOT) 16 U/L (5-40) Alanine Aminotransferase (ALT/SGPT) 12 U/L (3-41) Alkaline Phosphatase 59 U/L (40-129) Pro-B-Type Natriuretic Peptide 1598 pg/mL (0-125) H Total Protein 5.6 g/dL (6.6-8.7) L Albumin 2.5 g/dL (3.5-5.2) L Globulin 3.1 g/dL Albumin/Globulin Ratio 0.8 (1.0-2.7) L Stool Occult Blood Pending Height (Feet): 5 Height (Inches): 6.00 Weight (Pounds): 138 General Appearance: no apparent distress, alert Cardiovascular: normal rate Respiratory/Chest: normal breath sounds, no respiratory distress, other - mech vent Abdominal Exam: GT site - c/d/i Arabella Quesada [email or web address] Apr 20, 2017 10:40
--- NOTE | 2017-04-20 10:44 | Pulmonology Progress Note ---
Assessment/Plan Problems: (1) Respiratory failure, [id number] (2) Sepsis (3) Aspiration pneumonia (4) UGIB (upper gastrointestinal bleed) (5) Malfunction of gastrostomy tube (6) Protein-calorie malnutrition, severe Respiratory: monitor respiratory rate Cardiac: continue pressors, continue to monitor HR/BP Renal: F/U I&O, keep IV fluid Infectious Disease: check cultures, continue antibiotics Gastrointestinal: hold feedings Endocrine: monitor blood sugar, check TSH, continue sliding scale insulin Hematologic: monitor H/H, transfuse if hgb<8.5 Neurologic: PRN Morphine, keep patient comfortable Affect: PRN ativan Prophylaxis: Protonix, Heparin Time Spent (Minutes): 40 Notes Reviewed: rn er, 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 with: nurses, consultants, supervisor case loading Subjective ROS Limited/Unobtainable: No Constitutional: Reports: no symptoms HEENT: Repors: no symptoms Respiratory: Reports: no symptoms Allergies: Coded Allergies: NO KNOWN DRUG ALLERGIES (Verified Allergy, Unknown, 09/11/16) Objective Last 24 Hour Vital Signs Date Time Temp Pulse Resp B/P Pulse Ox O2 Delivery O2 Flow Rate FiO2 04/20/17 09:03 87 26 35 04/20/17 08:23 89 112/68 04/20/17 08:00 77 04/20/17 08:00 35 04/20/17 07:54 97.7 89 20 112/68 98 Mechanical Ventilator 35 04/20/17 06:47 87 19 35 04/20/17 05:23 89 18 35 04/20/17 04:00 98.6 74 21 152/53 99 Mechanical Ventilator 35 04/20/17 04:00 69 04/20/17 04:00 35 04/20/17 03:33 75 17 35 04/20/17 01:31 73 15 35 04/20/17 00:00 98.1 87 21 121/72 99 Mechanical Ventilator 35 04/20/17 00:00 84 04/19/17 23:23 99 24 35 04/19/17 21:00 35 04/19/17 20:58 87 16 35 04/19/17 20:00 88 04/19/17 20:00 35 04/19/17 20:00 99.1 86 21 144/68 99 Mechanical Ventilator 35 04/19/17 19:16 88 20 35 04/19/17 17:02 89 24 35 04/19/17 16:00 35 04/19/17 16:00 97 04/19/17 16:00 98.5 97 21 128/61 99 Mechanical Ventilator 35 04/19/17 15:11 86 15 100 Mechanical Ventilator 35 04/19/17 15:02 35 04/19/17 15:01 86 28 99 Mechanical Ventilator 35 04/19/17 15:00 86 28 35 04/19/17 13:28 98 25 35 04/19/17 12:00 98.4 99 25 105/58 98 Mechanical Ventilator 35 04/19/17 12:00 100 04/19/17 12:00 35 04/19/17 11:06 102 27 35 Intake and Output 04/19/17 04/20/17 19:00 07:00 Intake Total 2215 ml 2073.708 ml Output Total 450 ml 1600 ml Balance 1765 ml 473.708 ml IV Total 1685 ml 1383.708 ml Tube Feeding 440 ml 660 ml Other 90 ml 30 ml Output Urine Total 450 ml 1600 ml # Bowel Movements 3 Objective wbc rising, General Appearance: cachetic HEENT: normocephalic, atraumatic Respiratory/Chest: chest wall non-tender, lungs clear Cardiovascular: normal peripheral pulses, normal rate Abdomen: normal bowel sounds, soft, non tender Genitourinary: normal external genitalia Extremities: no clubbing Skin: no rash, no lesions, no ulcers Laboratory Tests 04/20/17 04:00: White Blood Count 19.5H, Red Blood Count 3.08L, Hemoglobin 8.4L, Hematocrit 26.1L, Mean Corpuscular Volume 85, Mean Corpuscular Hemoglobin 27.2, Mean Corpuscular Hemoglobin Concent 32.1, Red Cell Distribution Width 16.1H, Platelet Count 326, Mean Platelet Volume 7.2, Neutrophils (%) (Auto) , Lymphocytes (%) (Auto) , Monocytes (%) (Auto) , Eosinophils (%) (Auto) , Basophils (%) (Auto) , Differential Total Cells Counted 100, Neutrophils % ( Manual) 80H, Lymphocytes % (Manual) 9L, Monocytes % (Manual) 3, Eosinophils % ( Manual) 8H, Basophils % (Manual) 0, Band Neutrophils 0, Platelet Estimate Adequate, Platelet Morphology Normal, Hypochromasia 1+, Anisocytosis 1+, Sodium Level 136, Potassium Level 3.6, Chloride Level 103, Carbon Dioxide Level 26, Anion Gap 7, Blood Urea Nitrogen 11, Creatinine 0.6L, Estimat Glomerular Filtration Rate > 60, Glucose Level 131H, Calcium Level 7.9L, Total Bilirubin 0.2, Aspartate Amino Transf (AST/SGOT) 16, Alanine Aminotransferase (ALT/SGPT) 12, Alkaline Phosphatase 59, Pro-B-Type Natriuretic Peptide 1598H, Total Protein 5.6L, Albumin 2.5L, Globulin 3.1, Albumin/Globulin Ratio 0.8L 04/20/17 05:00: Stool Occult Blood [Pending] Current Medications Medications (Trade) Dose Ordered Sig/Wanda Route PRN Reason Start Time Stop Time Status Last Admin Dose Admin Acetaminophen (Tylenol) 650 mg Q4H PRN ORAL T>100.5 04/14/17 20:15 05/14/17 20:14 Acetaminophen (Tylenol) 650 mg Q4H PRN RECTAL Mild Pain (Pain Scale 1-3) 04/14/17 20:13 05/14/17 19:44 Al Hydroxide/Mg Hydroxide (Mylanta II) 30 ml Q6H PRN ORAL dyspepsia 04/14/17 20:15 05/14/17 20:14 Amlodipine Besylate (Norvasc) 2.5 mg DAILY ORAL 04/15/17 09:00 05/15/17 08:59 04/20/17 08:23 Cefepime HCl 2 gm/ Dextrose 110 ml @ 220 mls/hr EVERY 12 HOURS IV 04/15/17 09:00 04/22/17 08:59 04/20/17 08:23 Chlorhexidine Gluconate (Jasmin-Hex 2%) 1 applic DAILY TOPIC 04/17/17 09:00 05/17/17 08:59 04/20/17 08:24 Clonidine HCl 0.1 mg 0.1 mg Q6H PRN ORAL sbp above 160 04/14/17 21:15 05/14/17 21:14 Dextrose (Dextrose 50%) STAT PRN IV Hypoglycemia 04/14/17 20:15 05/14/17 20:14 Diphenhydramine HCl (Benadryl) 25 mg Q6H PRN ORAL Itching/Pruritis 04/14/17 20:15 05/14/17 20:14 04/19/17 17:10 Fluconazole (Diflucan) 100 mg DAILY GT 04/18/17 09:00 04/26/17 08:59 04/20/17 08:23 Iron Sucrose/ Sodium Chloride (Venofer/Sodium Chloride) 60 ml @ 240 mls/hr BEDTIME IVPB 04/16/17 21:00 04/20/17 21:14 04/19/17 20:27 Lansoprazole (Prevacid) 30 mg DAILY GT 04/20/17 09:00 05/20/17 08:59 04/20/17 08:23 Levothyroxine Sodium (Synthroid) 50 mcg DAILY GT 04/15/17 09:00 05/15/17 08:59 04/20/17 08:24 Metronidazole (Flagyl) 100 ml @ 100 mls/hr Q8HR IVPB 04/15/17 14:00 04/22/17 13:59 04/20/17 05:31 Morphine Sulfate (Morphine Sulfate) 2 mg Q4H PRN IVP Severe Pain (Pain Scale 7-10) 04/14/17 20:15 04/21/17 20:14 04/20/17 05:32 Nitroglycerin (Ntg) 0.4 mg Q5M X 3 DOSES PRN SL Prn Chest Pain 04/14/17 20:15 05/14/17 20:14 Ondansetron HCl (Zofran) 4 mg Q6H PRN IVP Nausea & Vomiting 04/14/17 20:15 05/14/17 20:14 04/19/17 08:54 Polyethylene Glycol (Miralax) 17 gm HSPRN PRN ORAL Constipation 04/14/17 21:00 05/14/17 20:59 Sodium Chloride (Sodium Chloride 1000ml bag) 1,000 ml @ 100 mls/hr Q10H IV 04/14/17 20:00 05/14/17 19:59 04/20/17 04:40 Sucralfate (Carafate) 1 gm FOUR TIMES A DAY GT 04/14/17 21:00 05/14/17 20:59 04/20/17 08:23 Vancomycin HCl 1 ea 1 ea DAILY PRN MISC Per rx protocol 04/15/17 08:30 05/15/17 08:29 Vancomycin HCl 1 gm/Dextrose 275 ml @ 183.708 mls/hr Q12HR@1000,2200 IVPB 04/15/17 10:00 04/20/17 23:59 04/20/17 09:19 MIKAYLA WILLOUGHBY Apr 20, 2017 10:44
[2017-04-20] MEDS: Iron Sucrose 100 MG in NS 55 ML IVPB SCH (20:38)
[2017-04-21 03:52] VITALS: BP 148/84
[2017-04-21] MEDS: Morphine Sulfate 2mg/ml Inj IVP PRN (04:38)
[2017-04-21] MEDS: metroNIDAZOLE 500mg 100 ML IVPB SCH ×3 (05:29→21:38)
[2017-04-21 08:00] VITALS: BP 103/60
[2017-04-21] MEDS: Cefepime 2gm/D5W 110ml IV SCH ×4 (09:23→20:29)
[2017-04-21] MEDS: Fluconazole 100mg tab GT SCH (09:24)
[2017-04-21] MEDS: Sucralfate 1gm tab GT SCH ×4 (09:24→20:29)
--- NOTE | 2017-04-21 10:20 | Pulmonology Progress Note ---
Assessment/Plan Problems: (1) Respiratory failure, [id number] (2) Sepsis (3) Aspiration pneumonia (4) UGIB (upper gastrointestinal bleed) (5) Malfunction of gastrostomy tube (6) Protein-calorie malnutrition, severe Respiratory: monitor respiratory rate, adjust FIO2, CXR Cardiac: continue to monitor HR/BP Renal: F/U I&O, keep IV fluid Infectious Disease: check cultures Gastrointestinal: continue feedings/current rate Endocrine: monitor blood sugar, check TSH Hematologic: monitor H/H, transfuse if hgb<8.5 Neurologic: PRN Ativan, PRN Morphine, keep patient comfortable Prophylaxis: Protonix, Heparin Disposition: keep in ICU 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, 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, 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 with: nurses, consultants, assistant case manager Subjective ROS Limited/Unobtainable: No Constitutional: Reports: no symptoms HEENT: Repors: no symptoms Respiratory: Reports: no symptoms Allergies: Coded Allergies: NO KNOWN DRUG ALLERGIES (Verified Allergy, Unknown, 09/11/16) Objective Last 24 Hour Vital Signs Date Time Temp Pulse Resp B/P Pulse Ox O2 Delivery O2 Flow Rate FiO2 04/21/17 09:24 76 103/60 04/21/17 09:07 76 15 35 04/21/17 08:00 92 04/21/17 08:00 35 04/21/17 08:00 97.5 70 16 103/60 98 Mechanical Ventilator 35 04/21/17 07:28 73 16 35 04/21/17 05:21 91 26 35 04/21/17 04:15 79 04/21/17 04:00 35 04/21/17 03:52 97.0 89 24 148/84 99 Mechanical Ventilator 35 04/21/17 03:22 93 18 35 04/21/17 01:00 82 19 35 04/21/17 00:00 35 04/20/17 23:36 84 04/20/17 23:31 98.4 83 25 125/69 99 Mechanical Ventilator 35 04/20/17 23:18 73 21 35 04/20/17 21:25 82 22 35 04/20/17 20:00 99.0 88 24 126/71 99 Mechanical Ventilator 35 04/20/17 20:00 35 04/20/17 19:30 82 04/20/17 19:20 78 18 35 04/20/17 17:04 79 19 35 04/20/17 16:00 79 04/20/17 16:00 35 04/20/17 16:00 97.3 78 22 104/64 98 Mechanical Ventilator 35 04/20/17 14:56 84 18 35 04/20/17 13:02 98 20 35 04/20/17 12:00 102 04/20/17 12:00 97.7 92 20 130/73 98 Mechanical Ventilator 35 04/20/17 12:00 35 04/20/17 10:46 104 22 35 Intake and Output 04/20/17 04/21/17 19:00 07:00 Intake Total 2265.000 ml 2255.000 ml Output Total 1400 ml 1700 ml Balance 865.000 ml 555.000 ml Free Water 100 ml IV Total 1585.000 ml 1545.000 ml Tube Feeding 550 ml 660 ml Other 30 ml 50 ml Output Urine Total 1400 ml 1700 ml Objective General Appearance: cachetic HEENT: normocephalic, atraumatic Respiratory/Chest: chest wall non-tender, lungs clear Cardiovascular: normal peripheral pulses, normal rate Abdomen: normal bowel sounds, soft, non tender Genitourinary: normal external genitalia Extremities: no clubbing Skin: no rash, no lesions, no ulcers General Appearance: cachetic Microbiology Date/Time Source Procedure Growth Status 04/20/17 11:00 Sputum Gram Stain - Final Resulted 04/20/17 11:00 Sputum Sputum Culture Pending Resulted Current Medications Medications (Trade) Dose Ordered Sig/Wanda Route PRN Reason Start Time Stop Time Status Last Admin Dose Admin Acetaminophen (Tylenol) 650 mg Q4H PRN ORAL T>100.5 04/14/17 20:15 05/14/17 20:14 Acetaminophen (Tylenol) 650 mg Q4H PRN RECTAL Mild Pain (Pain Scale 1-3) 04/14/17 20:13 05/14/17 19:44 Al Hydroxide/Mg Hydroxide (Mylanta II) 30 ml Q6H PRN ORAL dyspepsia 04/14/17 20:15 05/14/17 20:14 Amlodipine Besylate (Norvasc) 2.5 mg DAILY ORAL 04/15/17 09:00 05/15/17 08:59 04/21/17 09:24 Cefepime HCl 2 gm/ Dextrose 110 ml @ 220 mls/hr EVERY 12 HOURS IV 04/15/17 09:00 04/22/17 08:59 04/21/17 09:23 Clonidine HCl 0.1 mg 0.1 mg Q6H PRN ORAL sbp above 160 04/14/17 21:15 05/14/17 21:14 Dextrose (Dextrose 50%) STAT PRN IV Hypoglycemia 04/14/17 20:15 05/14/17 20:14 Diphenhydramine HCl (Benadryl) 25 mg Q6H PRN ORAL Itching/Pruritis 04/14/17 20:15 05/14/17 20:14 04/19/17 17:10 Fluconazole (Diflucan) 100 mg DAILY GT 04/18/17 09:00 04/26/17 08:59 04/21/17 09:24 Lansoprazole (Prevacid) 30 mg DAILY GT 04/20/17 09:00 05/20/17 08:59 04/21/17 09:24 Levothyroxine Sodium (Synthroid) 50 mcg DAILY GT 04/15/17 09:00 05/15/17 08:59 04/21/17 09:24 Metronidazole (Flagyl) 100 ml @ 100 mls/hr Q8HR IVPB 04/15/17 14:00 04/22/17 13:59 04/21/17 05:29 Morphine Sulfate (Morphine Sulfate) 2 mg Q4H PRN IVP Severe Pain (Pain Scale 7-10) 04/14/17 20:15 04/21/17 20:14 04/21/17 04:38 Nitroglycerin (Ntg) 0.4 mg Q5M X 3 DOSES PRN SL Prn Chest Pain 04/14/17 20:15 05/14/17 20:14 Ondansetron HCl (Zofran) 4 mg Q6H PRN IVP Nausea & Vomiting 04/14/17 20:15 05/14/17 20:14 04/19/17 08:54 Polyethylene Glycol (Miralax) 17 gm HSPRN PRN ORAL Constipation 04/14/17 21:00 05/14/17 20:59 Sodium Chloride (Sodium Chloride 1000ml bag) 1,000 ml @ 100 mls/hr Q10H IV 04/14/17 20:00 05/14/17 19:59 04/21/17 02:02 Sucralfate (Carafate) 1 gm FOUR TIMES A DAY GT 04/14/17 21:00 05/14/17 20:59 04/21/17 09:24 Vancomycin HCl 1 ea 1 ea DAILY PRN MISC Per rx protocol 04/15/17 08:30 05/15/17 08:29 Vancomycin HCl/ Dextrose (Vancomycin/D5W) 275 ml @ 183.708 mls/hr Q12HR@1000,2200 IVPB 04/15/17 10:00 04/25/17 09:59 04/20/17 22:26 MIKAYLA WILLOUGHBY Apr 21, 2017 10:20
[2017-04-21] MEDS: Vancomycin 1gm/D5W 275ml IVPB SCH ×4 (10:21→22:58)
[2017-04-21 10:28] LABS: BASOPHILS % (AUTO) 0.7 % (0.0-2.0); EOSINOPHILS % (AUTO) 19.3 % (0.0-3.0); LYMPHOCYTES % (AUTO) 15.5 % (20.0-45.0); MEAN CORPUSCULAR HEMOGLOBIN 26.5 PG (27.0-31.0); MEAN CORPUSCULAR HGB CONC 30.8 G/DL (32.0-36.0); MEAN CORPUSCULAR VOLUME 86 FL (80-99); MEAN PLATELET VOLUME 6.9 FL (6.5-10.1); MONOCYTES % (AUTO) 9.5 % (1.0-10.0); PLATELET COUNT 396 K/UL (150-450); RED BLOOD COUNT 3.71 M/UL (4.70-6.10); RED CELL DISTRIBUTION WIDTH 16.5 % (11.6-14.8); WHITE BLOOD COUNT 13.1 K/UL (4.8-10.8)
[2017-04-21 10:41] LABS: MAGNESIUM 1.5 mg/dL (1.7-2.5); PHOSPHORUS 1.3 mg/dL (2.5-4.8)
[2017-04-21 10:45] LABS: ALANINE AMINOTRANSFERASE 12 U/L (3-41); ALBUMIN/GLOBULIN RATIO 0.6 (1.0-2.7); ANION GAP 9 (5-15); ASPARTATE AMINO TRANSFERASE 12 U/L (5-40); CALCIUM 8.7 mg/dL (8.6-10.2); CARBON DIOXIDE 28 mEQ/L (20-30); CHLORIDE 101 mEQ/L (98-107); CREATININE 0.5 mg/dL (0.7-1.2); GLOMERULAR FILTRATION RATE > 60 mL/min (>60); HEMOLYSIS 2; POTASSIUM 4.4 mEQ/L (3.4-4.9); SODIUM 138 mEQ/L (135-145); TOTAL PROTEIN 6.6 g/dL (6.6-8.7)
[2017-04-21] MEDS ORDERED: Tubing IV Secondary IV ONE ×3 (10:46→17:11)
[2017-04-21] MEDS ORDERED: NS 275ml ONE (10:46)
[2017-04-21 12:17] VITALS: BP 138/75
[2017-04-21] MEDS ORDERED: Sodium Phosphate 20 MM in NS 275 ML IVPB ONE (15:00)
[2017-04-21 15:59] VITALS: BP 108/72
[2017-04-21] MEDS ORDERED: DuoNeb 0.5-3(2.5)mg/3ml neb ONE (18:47)
[2017-04-21 20:00] VITALS: BP 132/95
[2017-04-22] VITALS: BP 138/78
[2017-04-22 03:52] LABS: MEAN CORPUSCULAR HEMOGLOBIN 26.6 PG (27.0-31.0); MEAN CORPUSCULAR HGB CONC 31.2 G/DL (32.0-36.0); MEAN CORPUSCULAR VOLUME 85 FL (80-99); PLATELET COUNT 397 K/UL (150-450); RED BLOOD COUNT 3.84 M/UL (4.70-6.10); RED CELL DISTRIBUTION WIDTH 16.6 % (11.6-14.8); WHITE BLOOD COUNT 9.9 K/UL (4.8-10.8)
[2017-04-22 03:57] LABS: INR 1.1 (0.9-1.1); PROTHROMBIN TIME 11.7 SEC (9.30-11.50)
[2017-04-22 04:00] VITALS: BP 125/85
[2017-04-22 04:07] LABS: ALANINE AMINOTRANSFERASE 12 U/L (3-41); ALBUMIN/GLOBULIN RATIO 0.7 (1.0-2.7); ANION GAP 7 (5-15); ASPARTATE AMINO TRANSFERASE 13 U/L (5-40); CALCIUM 8.5 mg/dL (8.6-10.2); CARBON DIOXIDE 29 mEQ/L (20-30); CHLORIDE 100 mEQ/L (98-107); CREATININE 0.6 mg/dL (0.7-1.2); GLOMERULAR FILTRATION RATE > 60 mL/min (>60); HEMOLYSIS 3; PHOSPHORUS 2.1 mg/dL (2.5-4.8); POTASSIUM 4.2 mEQ/L (3.4-4.9); SODIUM 136 mEQ/L (135-145); TOTAL PROTEIN 6.5 g/dL (6.6-8.7)
[2017-04-22] MEDS: metroNIDAZOLE 500mg 100 ML IVPB SCH (05:03)
[2017-04-22 08:00] VITALS: BP 99/56
[2017-04-22] MEDS: Fluconazole 100mg tab GT SCH (08:04)
[2017-04-22] MEDS: Sucralfate 1gm tab GT SCH ×4 (08:04→21:41)
[2017-04-22 08:57] LABS: ANISOCYTOSIS 1+; BAND NEUTROPHILS % (MANUAL) 0 % (0-8); BASOPHILS % (MANUAL) 0 % (0-2); EOSINOPHILS % (MANUAL) 13 % (0-3); HYPOCHROMASIA 1+; LYMPHOCYTES % (MANUAL) 18 % (20-45); NEUTROPHILS % (MANUAL) 64 % (45-75); PLATELET ESTIMATE ADEQUATE; PLATELET MORPHOLOGY NORMAL; TOTAL CELLS COUNTED 100
--- NOTE | 2017-04-22 09:52 | Pulmonology Progress Note ---
Assessment/Plan Problems: (1) Respiratory failure, [id number] (2) Sepsis (3) Aspiration pneumonia (4) UGIB (upper gastrointestinal bleed) (5) Malfunction of gastrostomy tube (6) Protein-calorie malnutrition, severe Respiratory: monitor respiratory rate, adjust FIO2 Cardiac: continue to monitor HR/BP Renal: F/U I&O, check electrolytes Infectious Disease: check cultures, continue antibiotics, other - afebrile, wbc normal Gastrointestinal: continue feedings/current rate Endocrine: monitor blood sugar, continue sliding scale insulin Hematologic: monitor H/H, transfuse if hgb<8.5 Neurologic: PRN Ativan, keep patient comfortable Affect: PRN ativan Notes Reviewed: 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 with: nurses, consultants, heel caser Subjective ROS Limited/Unobtainable: Yes Allergies: Coded Allergies: NO KNOWN DRUG ALLERGIES (Verified Allergy, Unknown, 09/11/16) Objective Last 24 Hour Vital Signs Date Time Temp Pulse Resp B/P Pulse Ox O2 Delivery O2 Flow Rate FiO2 04/22/17 09:00 77 99/56 04/22/17 08:49 77 04/22/17 08:00 35 04/22/17 08:00 97.9 101 20 99/56 96 Mechanical Ventilator 04/22/17 06:52 82 21 35 04/22/17 04:55 84 27 35 04/22/17 04:00 98.1 82 19 125/85 100 Mechanical Ventilator 35 04/22/17 04:00 79 04/22/17 04:00 35 04/22/17 03:10 85 23 35 04/22/17 01:30 88 22 35 04/22/17 00:00 98.1 87 22 138/78 99 Mechanical Ventilator 35 04/22/17 00:00 85 04/22/17 00:00 35 04/21/17 23:30 89 24 35 04/21/17 21:30 86 21 35 04/21/17 20:00 89 04/21/17 20:00 99.0 89 22 132/95 99 Mechanical Ventilator 35 04/21/17 20:00 35 04/21/17 19:30 89 20 35 04/21/17 16:51 75 17 35 04/21/17 16:00 77 04/21/17 16:00 35 04/21/17 15:59 97.7 75 17 108/72 98 Mechanical Ventilator 35 04/21/17 15:10 78 22 35 04/21/17 13:04 84 19 35 04/21/17 12:17 97.6 84 22 138/75 100 Mechanical Ventilator 35 04/21/17 12:08 35 04/21/17 12:00 78 04/21/17 11:18 89 25 35 Intake and Output 04/21/17 04/22/17 19:00 07:00 Intake Total 2040.000 ml 2538.000 ml Output Total 400 ml 1750 ml Balance 1640.000 ml 788.000 ml Free Water 350 ml 150 ml IV Total 1085.000 ml 1783.000 ml Tube Feeding 605 ml 605 ml Output Urine Total 400 ml 1750 ml Objective General Appearance: cachetic HEENT: normocephalic, atraumatic Respiratory/Chest: chest wall non-tender, lungs clear Cardiovascular: normal peripheral pulses, normal rate Abdomen: normal bowel sounds, soft, non tender Genitourinary: normal external genitalia Extremities: no clubbing Skin: no rash, no lesions, no ulcers Microbiology Date/Time Source Procedure Growth Status 04/20/17 11:00 Sputum Gram Stain - Final Resulted 04/20/17 11:00 Sputum Sputum Culture - Preliminary Resulted Laboratory Tests 04/21/17 10:15: White Blood Count 13.1H, Red Blood Count 3.71L, Hemoglobin 9.8L, Hematocrit 32.0L, Mean Corpuscular Volume 86, Mean Corpuscular Hemoglobin 26.5L, Mean Corpuscular Hemoglobin Concent 30.8L, Red Cell Distribution Width 16.5H, Platelet Count 396, Mean Platelet Volume 6.9, Neutrophils (%) (Auto) 55.0, Lymphocytes (%) (Auto) 15.5L, Monocytes (%) (Auto) 9.5, Eosinophils (%) (Auto) 19.3H, Basophils (%) (Auto) 0.7, Sodium Level 138, Potassium Level 4.4, Chloride Level 101, Carbon Dioxide Level 28, Anion Gap 9, Blood Urea Nitrogen 8 , Creatinine 0.5L, Estimat Glomerular Filtration Rate > 60, Glucose Level 160H, Calcium Level 8.7, Phosphorus Level 1.3L, Magnesium Level 1.5L, Total Bilirubin < 0.2, Aspartate Amino Transf (AST/SGOT) 12, Alanine Aminotransferase (ALT/SGPT ) 12, Alkaline Phosphatase 66, Total Protein 6.6, Albumin 2.6L, Globulin 4.0, Albumin/Globulin Ratio 0.6L 04/22/17 03:30: White Blood Count 9.9, Red Blood Count 3.84L, Hemoglobin 10.2L, Hematocrit 32.7L , Mean Corpuscular Volume 85, Mean Corpuscular Hemoglobin 26.6L, Mean Corpuscular Hemoglobin Concent 31.2L, Red Cell Distribution Width 16.6H, Platelet Count 397, Mean Platelet Volume 7.0, Neutrophils (%) (Auto) , Lymphocytes (%) (Auto) , Monocytes (%) (Auto) , Eosinophils (%) (Auto) , Basophils (%) (Auto) , Sodium Level 136, Potassium Level 4.2, Chloride Level 100 , Carbon Dioxide Level 29, Anion Gap 7, Blood Urea Nitrogen 7, Creatinine 0.6L, Estimat Glomerular Filtration Rate > 60, Glucose Level 133H, Calcium Level 8.5L , Phosphorus Level 2.1L, Magnesium Level 2.0, Total Bilirubin < 0.2, Aspartate Amino Transf (AST/SGOT) 13, Alanine Aminotransferase (ALT/SGPT) 12, Alkaline Phosphatase 65, Total Protein 6.5L, Albumin 2.8L, Globulin 3.7, Albumin/ Globulin Ratio 0.7L, Differential Total Cells Counted 100, Neutrophils % (Manual ) 64, Lymphocytes % (Manual) 18L, Monocytes % (Manual) 5, Eosinophils % (Manual ) 13H, Basophils % (Manual) 0, Band Neutrophils 0, Platelet Estimate Adequate, Platelet Morphology Normal, Hypochromasia 1+, Anisocytosis 1+, Prothrombin Time 11.7H, Prothromb Time International Ratio 1.1, Activated Partial Thromboplast Time 31 04/22/17 08:55: Vancomycin Level Trough 19.3H Current Medications Medications (Trade) Dose Ordered Sig/Wanda Route PRN Reason Start Time Stop Time Status Last Admin Dose Admin Acetaminophen (Tylenol) 650 mg Q4H PRN ORAL T>100.5 04/14/17 20:15 05/14/17 20:14 Acetaminophen (Tylenol) 650 mg Q4H PRN RECTAL Mild Pain (Pain Scale 1-3) 04/14/17 20:13 05/14/17 19:44 Al Hydroxide/Mg Hydroxide (Mylanta II) 30 ml Q6H PRN ORAL dyspepsia 8/5/17 20:15 05/14/17 20:14 Amlodipine Besylate (Norvasc) 2.5 mg DAILY ORAL 04/15/17 09:00 05/15/17 08:59 04/21/17 09:24 Clonidine HCl 0.1 mg 0.1 mg Q6H PRN ORAL sbp above 160 04/14/17 21:15 05/14/17 21:14 Dextrose (Dextrose 50%) STAT PRN IV Hypoglycemia 04/14/17 20:15 05/14/17 20:14 Diphenhydramine HCl (Benadryl) 25 mg Q6H PRN ORAL Itching/Pruritis 04/14/17 20:15 05/14/17 20:14 04/22/17 03:22 Fluconazole (Diflucan) 100 mg DAILY GT 04/18/17 09:00 04/26/17 08:59 04/22/17 08:04 Lansoprazole (Prevacid) 30 mg DAILY GT 04/20/17 09:00 05/20/17 08:59 04/22/17 08:03 Levothyroxine Sodium (Synthroid) 50 mcg DAILY GT 04/15/17 09:00 05/15/17 08:59 04/22/17 08:04 Metronidazole (Flagyl) 100 ml @ 100 mls/hr Q8HR IVPB 04/15/17 14:00 04/22/17 13:59 04/22/17 05:03 Nitroglycerin (Ntg) 0.4 mg Q5M X 3 DOSES PRN SL Prn Chest Pain 04/14/17 20:15 05/14/17 20:14 Ondansetron HCl (Zofran) 4 mg Q6H PRN IVP Nausea & Vomiting 04/14/17 20:15 05/14/17 20:14 04/19/17 08:54 Polyethylene Glycol (Miralax) 17 gm HSPRN PRN ORAL Constipation 04/14/17 21:00 05/14/17 20:59 Sodium Chloride (Sodium Chloride 1000ml bag) 1,000 ml @ 100 mls/hr Q10H IV 04/14/17 20:00 05/14/17 19:59 04/22/17 08:04 Sucralfate (Carafate) 1 gm FOUR TIMES A DAY GT 04/14/17 21:00 05/14/17 20:59 04/22/17 08:04 Vancomycin HCl 1 ea 1 ea DAILY PRN MISC Per rx protocol 04/15/17 08:30 05/15/17 08:29 Vancomycin HCl/ Dextrose (Vancomycin/D5W) 275 ml @ 183.708 mls/hr Q12HR@1000,2200 IVPB 04/15/17 10:00 04/25/17 09:59 04/21/17 22:58 MIKAYLA WILLOUGHBY Apr 22, 2017 09:52
[2017-04-22] MEDS: Vancomycin 1gm/D5W 275ml IVPB SCH ×4 (10:21→21:41)
--- NOTE | 2017-04-22 10:21 | Infectious Diseases Prog Note ---
Assessment/Plan Assessment/Plan A: Sepsis improving Pneumonia s/p Rx Fungal UTI GT dislodgement, Changed Esophagitis P: Continue Vancomycin Subjective ROS Limited/Unobtainable: Yes Allergies: Coded Allergies: NO KNOWN DRUG ALLERGIES (Verified Allergy, Unknown, 09/11/16) Objective Vital Signs Last 24 Hour Vital Signs Date Time Temp Pulse Resp B/P Pulse Ox O2 Delivery O2 Flow Rate FiO2 04/22/17 09:03 75 23 35 04/22/17 09:00 77 99/56 04/22/17 08:49 77 04/22/17 08:00 35 04/22/17 08:00 97.9 101 20 99/56 96 Mechanical Ventilator 04/22/17 06:52 82 21 35 04/22/17 04:55 84 27 35 04/22/17 04:00 98.1 82 19 125/85 100 Mechanical Ventilator 35 04/22/17 04:00 79 04/22/17 04:00 35 04/22/17 03:10 85 23 35 04/22/17 01:30 88 22 35 04/22/17 00:00 98.1 87 22 138/78 99 Mechanical Ventilator 35 04/22/17 00:00 85 04/22/17 00:00 35 04/21/17 23:30 89 24 35 04/21/17 21:30 86 21 35 04/21/17 20:00 89 04/21/17 20:00 99.0 89 22 132/95 99 Mechanical Ventilator 35 04/21/17 20:00 35 04/21/17 19:30 89 20 35 04/21/17 16:51 75 17 35 04/21/17 16:00 77 04/21/17 16:00 35 04/21/17 15:59 97.7 75 17 108/72 98 Mechanical Ventilator 35 04/21/17 15:10 78 22 35 04/21/17 13:04 84 19 35 04/21/17 12:17 97.6 84 22 138/75 100 Mechanical Ventilator 35 04/21/17 12:08 35 04/21/17 12:00 78 04/21/17 11:18 89 25 35 Height (Feet): 5 Height (Inches): 6.00 Weight (Pounds): 140 General Appearance: no acute distress HEENT: status post trach Respiratory/Chest: lungs clear Cardiovascular: normal rate Abdomen: soft, non tender, other - Gt feeding Extremities: no edema, other - peripheral line Neurologic/Psychiatric: aphasia, other - opens eyes Microbiology Date/Time Source Procedure Growth Status 04/20/17 11:00 Sputum Gram Stain - Final Resulted 04/20/17 11:00 Sputum Sputum Culture - Preliminary Resulted Laboratory Tests Test 04/22/17 03:30 04/22/17 08:55 White Blood Count 9.9 K/UL (4.8-10.8) Red Blood Count 3.84 M/UL (4.70-6.10) L Hemoglobin 10.2 G/DL (14.2-18.0) L Hematocrit 32.7 % (42.0-52.0) L Mean Corpuscular Volume 85 FL (80-99) Mean Corpuscular Hemoglobin 26.6 PG (27.0-31.0) L Mean Corpuscular Hemoglobin Concent 31.2 G/DL (32.0-36.0) L Red Cell Distribution Width 16.6 % (11.6-14.8) H Platelet Count 397 K/UL (150-450) Mean Platelet Volume 7.0 FL (6.5-10.1) Neutrophils (%) (Auto) % (45.0-75.0) Lymphocytes (%) (Auto) % (20.0-45.0) Monocytes (%) (Auto) % (1.0-10.0) Eosinophils (%) (Auto) % (0.0-3.0) Basophils (%) (Auto) % (0.0-2.0) Differential Total Cells Counted 100 Neutrophils % (Manual) 64 % (45-75) Lymphocytes % (Manual) 18 % (20-45) L Monocytes % (Manual) 5 % (1-10) Eosinophils % (Manual) 13 % (0-3) H Basophils % (Manual) 0 % (0-2) Band Neutrophils 0 % (0-8) Platelet Estimate Adequate Platelet Morphology Normal Hypochromasia 1+ Anisocytosis 1+ Prothrombin Time 11.7 SEC (9.30-11.50) H Prothromb Time International Ratio 1.1 (0.9-1.1) Activated Partial Thromboplast Time 31 SEC (23-33) Sodium Level 136 mEQ/L (135-145) Potassium Level 4.2 mEQ/L (3.4-4.9) Chloride Level 100 mEQ/L (98-107) Carbon Dioxide Level 29 mEQ/L (20-30) Anion Gap 7 (5-15) Blood Urea Nitrogen 7 mg/dL (7-23) Creatinine 0.6 mg/dL (0.7-1.2) L Estimat Glomerular Filtration Rate > 60 mL/min (>60) Glucose Level 133 mg/dL (74-106) H Calcium Level 8.5 mg/dL (8.6-10.2) L Phosphorus Level 2.1 mg/dL (2.5-4.8) L Magnesium Level 2.0 mg/dL (1.7-2.5) Total Bilirubin < 0.2 mg/dL (0.0-1.2) Aspartate Amino Transf (AST/SGOT) 13 U/L (5-40) Alanine Aminotransferase (ALT/SGPT) 12 U/L (3-41) Alkaline Phosphatase 65 U/L (40-129) Total Protein 6.5 g/dL (6.6-8.7) L Albumin 2.8 g/dL (3.5-5.2) L Globulin 3.7 g/dL Albumin/Globulin Ratio 0.7 (1.0-2.7) L Vancomycin Level Trough 19.3 ug/mL (5.0-12.0) H Current Medications Medications (Trade) Dose Ordered Sig/Wanda Route PRN Reason Start Time Stop Time Status Last Admin Dose Admin Acetaminophen (Tylenol) 650 mg Q4H PRN ORAL T>100.5 04/14/17 20:15 05/14/17 20:14 Acetaminophen (Tylenol) 650 mg Q4H PRN RECTAL Mild Pain (Pain Scale 1-3) 04/14/17 20:13 05/14/17 19:44 Al Hydroxide/Mg Hydroxide (Mylanta II) 30 ml Q6H PRN ORAL dyspepsia 04/14/17 20:15 05/14/17 20:14 Amlodipine Besylate (Norvasc) 2.5 mg DAILY ORAL 04/15/17 09:00 05/15/17 08:59 04/21/17 09:24 Clonidine HCl 0.1 mg 0.1 mg Q6H PRN ORAL sbp above 160 04/14/17 21:15 05/14/17 21:14 Dextrose (Dextrose 50%) STAT PRN IV Hypoglycemia 04/14/17 20:15 05/14/17 20:14 Diphenhydramine HCl (Benadryl) 25 mg Q6H PRN ORAL Itching/Pruritis 04/14/17 20:15 05/14/17 20:14 04/22/17 03:22 Fluconazole (Diflucan) 100 mg DAILY GT 04/18/17 09:00 04/26/17 08:59 04/22/17 08:04 Lansoprazole (Prevacid) 30 mg DAILY GT 04/20/17 09:00 05/20/17 08:59 04/22/17 08:03 Levothyroxine Sodium (Synthroid) 50 mcg DAILY GT 04/15/17 09:00 05/15/17 08:59 04/22/17 08:04 Metronidazole (Flagyl) 100 ml @ 100 mls/hr Q8HR IVPB 04/15/17 14:00 04/22/17 13:59 04/22/17 05:03 Nitroglycerin (Ntg) 0.4 mg Q5M X 3 DOSES PRN SL Prn Chest Pain 04/14/17 20:15 05/14/17 20:14 Ondansetron HCl (Zofran) 4 mg Q6H PRN IVP Nausea & Vomiting 04/14/17 20:15 05/14/17 20:14 04/19/17 08:54 Polyethylene Glycol (Miralax) 17 gm HSPRN PRN ORAL Constipation 04/14/17 21:00 05/14/17 20:59 Sodium Chloride (Sodium Chloride 1000ml bag) 1,000 ml @ 100 mls/hr Q10H IV 04/14/17 20:00 05/14/17 19:59 04/22/17 08:04 Sucralfate (Carafate) 1 gm FOUR TIMES A DAY GT 04/14/17 21:00 05/14/17 20:59 04/22/17 08:04 Vancomycin HCl 1 ea 1 ea DAILY PRN MISC Per rx protocol 04/15/17 08:30 05/15/17 08:29 Vancomycin HCl/ Dextrose (Vancomycin/D5W) 275 ml @ 183.708 mls/hr Q12HR@1000,2200 IVPB 04/15/17 10:00 8/16/17 09:59 04/21/17 22:58 SHANNA BERRY Apr 22, 2017 10:21
[2017-04-22 12:00] VITALS: BP 100/68
[2017-04-22] MEDS: metroNIDAZOLE 500mg tab ORAL SCH ×2 (15:09→21:41)
[2017-04-22 16:00] VITALS: BP 133/82
[2017-04-22 20:00] VITALS: BP 107/82
[2017-04-23] VITALS: BP 110/78
[2017-04-23 04:00] VITALS: BP 119/63
[2017-04-23] MEDS: metroNIDAZOLE 500mg tab ORAL SCH (05:03)
[2017-04-23 05:14] LABS: MEAN CORPUSCULAR HEMOGLOBIN 27.5 PG (27.0-31.0); MEAN CORPUSCULAR HGB CONC 32.4 G/DL (32.0-36.0); MEAN CORPUSCULAR VOLUME 85 FL (80-99); MEAN PLATELET VOLUME 7.1 FL (6.5-10.1); PLATELET COUNT 465 K/UL (150-450); RED BLOOD COUNT 3.99 M/UL (4.70-6.10); RED CELL DISTRIBUTION WIDTH 16.5 % (11.6-14.8); WHITE BLOOD COUNT 11.7 K/UL (4.8-10.8)
[2017-04-23 05:46] LABS: ALANINE AMINOTRANSFERASE 12 U/L (3-41); ALBUMIN/GLOBULIN RATIO 0.6 (1.0-2.7); ANION GAP 8 (5-15); ASPARTATE AMINO TRANSFERASE 13 U/L (5-40); CALCIUM 9.1 mg/dL (8.6-10.2); CARBON DIOXIDE 25 mEQ/L (20-30); CHLORIDE 100 mEQ/L (98-107); CREATININE 0.6 mg/dL (0.7-1.2); GLOMERULAR FILTRATION RATE > 60 mL/min (>60); HEMOLYSIS 4; MAGNESIUM 1.8 mg/dL (1.7-2.5); PHOSPHORUS 2.1 mg/dL (2.5-4.8); POTASSIUM 4.3 mEQ/L (3.4-4.9); SODIUM 133 mEQ/L (135-145); TOTAL PROTEIN 6.6 g/dL (6.6-8.7)
[2017-04-23 07:13] LABS: BAND NEUTROPHILS % (MANUAL) 0 % (0-8); BASOPHILS % (MANUAL) 0 % (0-2); EOSINOPHILS % (MANUAL) 29 % (0-3); LYMPHOCYTES % (MANUAL) 18 % (20-45); NEUTROPHILS % (MANUAL) 44 % (45-75); PLATELET ESTIMATE ADEQUATE; PLATELET MORPHOLOGY NORMAL; TOTAL CELLS COUNTED 100
[2017-04-23 07:14] LABS: ANISOCYTOSIS 1+; HYPOCHROMASIA 1+
[2017-04-23 08:00] VITALS: BP 126/68
--- NOTE | 2017-04-23 08:27 | Diagnostic Imaging Report ---
Indication: Dyspnea Comparison: 04/16/17 A single view chest radiograph was obtained. Findings: Lungs are much better inflated. There is some perihilar disease which may be mild edema or infiltrate. Heart size is normal. Impression: Perihilar infiltrate versus mild edema.
--- NOTE | 2017-04-23 08:32 | Infectious Diseases Prog Note ---
Assessment/Plan Assessment/Plan A: Rash & Eosinophilia Sepsis improving Pneumonia s/p Rx Fungal UTI GT dislodgement, Changed Esophagitis P: discontinue Vancomycin , Flagyl & Fluconazole Repeat CXR Subjective ROS Limited/Unobtainable: Yes Allergies: Coded Allergies: NO KNOWN DRUG ALLERGIES (Verified Allergy, Unknown, 09/11/16) Objective Vital Signs Last 24 Hour Vital Signs Date Time Temp Pulse Resp B/P Pulse Ox O2 Delivery O2 Flow Rate FiO2 04/23/17 06:53 92 22 35 04/23/17 05:31 96 18 35 04/23/17 04:14 90 18 35 04/23/17 04:00 91 04/23/17 04:00 98.4 97 26 119/63 97 Mechanical Ventilator 35 04/23/17 04:00 35 04/23/17 02:10 75 22 35 04/23/17 00:00 35 04/23/17 00:00 98.2 92 26 110/78 99 Mechanical Ventilator 35 04/23/17 00:00 94 04/22/17 23:30 78 21 35 04/22/17 21:36 105 24 35 04/22/17 20:00 35 04/22/17 20:00 78 04/22/17 20:00 98.2 84 26 107/82 99 Mechanical Ventilator 35 04/22/17 19:49 87 19 35 04/22/17 17:14 76 19 35 04/22/17 16:07 79 04/22/17 16:00 35 04/22/17 16:00 97.8 84 26 133/82 99 Mechanical Ventilator 35 04/22/17 15:07 76 24 35 04/22/17 13:03 82 21 35 04/22/17 12:00 35 04/22/17 12:00 98.0 84 20 100/68 100 Mechanical Ventilator 35 04/22/17 12:00 82 04/22/17 11:14 81 23 35 04/22/17 09:03 75 23 35 04/22/17 09:00 77 99/56 04/22/17 08:49 77 Height (Feet): 5 Height (Inches): 6.00 Weight (Pounds): 141 HEENT: status post trach Respiratory/Chest: lungs clear Cardiovascular: normal rate Abdomen: soft, non tender, other - GT feeding, Genitourinary: other - condom catheter Extremities: no edema, other - flexion contacture Neurologic/Psychiatric: other - opens eyes Microbiology Date/Time Source Procedure Growth Status 04/20/17 11:00 Sputum Gram Stain - Final Resulted 04/20/17 11:00 Sputum Culture - Preliminary Gram Negative Bacillus 1 Gram Negative Bacillus 2 Usual Upper Respiratory Mary Resulted Laboratory Tests Test 04/22/17 08:55 04/23/17 04:00 Vancomycin Level Trough 19.3 ug/mL (5.0-12.0) H White Blood Count 11.7 K/UL (4.8-10.8) H Red Blood Count 3.99 M/UL (4.70-6.10) L Hemoglobin 11.0 G/DL (14.2-18.0) L Hematocrit 33.9 % (42.0-52.0) L Mean Corpuscular Volume 85 FL (80-99) Mean Corpuscular Hemoglobin 27.5 PG (27.0-31.0) Mean Corpuscular Hemoglobin Concent 32.4 G/DL (32.0-36.0) Red Cell Distribution Width 16.5 % (11.6-14.8) H Platelet Count 465 K/UL (150-450) H Mean Platelet Volume 7.1 FL (6.5-10.1) Neutrophils (%) (Auto) % (45.0-75.0) Lymphocytes (%) (Auto) % (20.0-45.0) Monocytes (%) (Auto) % (1.0-10.0) Eosinophils (%) (Auto) % (0.0-3.0) Basophils (%) (Auto) % (0.0-2.0) Differential Total Cells Counted 100 Neutrophils % (Manual) 44 % (45-75) L Lymphocytes % (Manual) 18 % (20-45) L Monocytes % (Manual) 9 % (1-10) Eosinophils % (Manual) 29 % (0-3) H Basophils % (Manual) 0 % (0-2) Band Neutrophils 0 % (0-8) Platelet Estimate Adequate Platelet Morphology Normal Hypochromasia 1+ Anisocytosis 1+ Sodium Level 133 mEQ/L (135-145) L Potassium Level 4.3 mEQ/L (3.4-4.9) Chloride Level 100 mEQ/L (98-107) Carbon Dioxide Level 25 mEQ/L (20-30) Anion Gap 8 (5-15) Blood Urea Nitrogen 15 mg/dL (7-23) Creatinine 0.6 mg/dL (0.7-1.2) L Estimat Glomerular Filtration Rate > 60 mL/min (>60) Glucose Level 117 mg/dL (74-106) H Calcium Level 9.1 mg/dL (8.6-10.2) Phosphorus Level 2.1 mg/dL (2.5-4.8) L Magnesium Level 1.8 mg/dL (1.7-2.5) Total Bilirubin < 0.2 mg/dL (0.0-1.2) Aspartate Amino Transf (AST/SGOT) 13 U/L (5-40) Alanine Aminotransferase (ALT/SGPT) 12 U/L (3-41) Alkaline Phosphatase 67 U/L (40-129) Total Protein 6.6 g/dL (6.6-8.7) Albumin 2.7 g/dL (3.5-5.2) L Globulin 3.9 g/dL Albumin/Globulin Ratio 0.6 (1.0-2.7) L Current Medications Medications (Trade) Dose Ordered Sig/Wanda Route PRN Reason Start Time Stop Time Status Last Admin Dose Admin Acetaminophen (Tylenol) 650 mg Q4H PRN ORAL T>100.5 04/14/17 20:15 05/14/17 20:14 Acetaminophen (Tylenol) 650 mg Q4H PRN RECTAL Mild Pain (Pain Scale 1-3) 04/14/17 20:13 05/14/17 19:44 Al Hydroxide/Mg Hydroxide (Mylanta II) 30 ml Q6H PRN ORAL dyspepsia 04/14/17 20:15 05/14/17 20:14 Amlodipine Besylate (Norvasc) 2.5 mg DAILY ORAL 04/15/17 09:00 05/15/17 08:59 04/21/17 09:24 Clonidine HCl (Catapres) 0.1 mg Q6H PRN ORAL sbp above 160 04/14/17 21:15 05/14/17 21:14 Dextrose (Dextrose 50%) STAT PRN IV Hypoglycemia 04/14/17 20:15 05/14/17 20:14 Diphenhydramine HCl (Benadryl) 25 mg Q6H PRN ORAL Itching/Pruritis 04/14/17 20:15 05/14/17 20:14 04/22/17 03:22 Fluconazole (Diflucan) 100 mg DAILY GT 04/18/17 09:00 04/26/17 08:59 04/22/17 08:04 Lansoprazole (Prevacid) 30 mg DAILY GT 04/20/17 09:00 05/20/17 08:59 04/22/17 08:03 Levothyroxine Sodium (Synthroid) 50 mcg DAILY GT 04/15/17 09:00 05/15/17 08:59 04/22/17 08:04 Metronidazole (Flagyl) 500 mg Q8HR ORAL 04/22/17 14:00 04/27/17 13:59 04/23/17 05:03 Nitroglycerin (Ntg) 0.4 mg Q5M X 3 DOSES PRN SL Prn Chest Pain 04/14/17 20:15 05/14/17 20:14 Ondansetron HCl (Zofran) 4 mg Q6H PRN IVP Nausea & Vomiting 04/14/17 20:15 05/14/17 20:14 04/19/17 08:54 Polyethylene Glycol (Miralax) 17 gm HSPRN PRN ORAL Constipation 04/14/17 21:00 05/14/17 20:59 Sodium Chloride (Sodium Chloride 1000ml bag) 1,000 ml @ 100 mls/hr Q10H IV 04/14/17 20:00 05/14/17 19:59 04/23/17 04:35 Sucralfate (Carafate) 1 gm FOUR TIMES A DAY GT 04/14/17 21:00 05/14/17 20:59 04/22/17 21:41 Vancomycin HCl 1 ea 1 ea DAILY PRN MISC Per rx protocol 04/15/17 08:30 05/15/17 08:29 Vancomycin HCl/ Dextrose (Vancomycin/D5W) 275 ml @ 183.708 mls/hr Q12HR@1000,2200 IVPB 04/15/17 10:00 04/25/17 09:59 04/22/17 21:41 SHANNA BERRY Apr 23, 2017 08:32
[2017-04-23] MEDS: Sucralfate 1gm tab GT SCH ×4 (09:15→20:42)
--- NOTE | 2017-04-23 10:22 | Pulmonology Progress Note ---
Assessment/Plan Problems: (1) Respiratory failure, [id number] (2) Sepsis (3) Aspiration pneumonia (4) UGIB (upper gastrointestinal bleed) (5) Malfunction of gastrostomy tube (6) Protein-calorie malnutrition, severe Respiratory: monitor respiratory rate, adjust FIO2, CXR, weaning trial Cardiac: continue to monitor HR/BP Renal: F/U I&O, keep IV fluid Infectious Disease: other - off abx Gastrointestinal: continue feedings/current rate - episodes of vomiting, adjust feedings, other - add reglan Endocrine: monitor blood sugar, check TSH, continue sliding scale insulin Hematologic: monitor H/H, transfuse if hgb<8.5 Neurologic: PRN Ativan, PRN Morphine, keep patient comfortable Affect: PRN ativan Prophylaxis: Protonix, Heparin Time Spent (Minutes): 40 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, 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, 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 with: nurses, consultants, case worker Subjective ROS Limited/Unobtainable: No Constitutional: Reports: no symptoms Respiratory: Reports: no symptoms Allergies: Coded Allergies: NO KNOWN DRUG ALLERGIES (Verified Allergy, Unknown, 09/11/16) Objective Last 24 Hour Vital Signs Date Time Temp Pulse Resp B/P Pulse Ox O2 Delivery O2 Flow Rate FiO2 04/23/17 09:14 97 126/68 04/23/17 08:30 97 24 35 04/23/17 08:00 97.3 91 24 126/68 96 Mechanical Ventilator 35 04/23/17 08:00 35 04/23/17 06:53 92 22 35 04/23/17 05:31 96 18 35 04/23/17 04:14 90 18 35 04/23/17 04:00 91 04/23/17 04:00 98.4 97 26 119/63 97 Mechanical Ventilator 35 04/23/17 04:00 35 04/23/17 02:10 75 22 35 04/23/17 00:00 35 04/23/17 00:00 98.2 92 26 110/78 99 Mechanical Ventilator 35 04/23/17 00:00 94 04/22/17 23:30 78 21 35 04/22/17 21:36 105 24 35 04/22/17 20:00 35 04/22/17 20:00 78 04/22/17 20:00 98.2 84 26 107/82 99 Mechanical Ventilator 35 04/22/17 19:49 87 19 35 8/13/17 17:14 76 19 35 04/22/17 16:07 79 04/22/17 16:00 35 04/22/17 16:00 97.8 84 26 133/82 99 Mechanical Ventilator 35 04/22/17 15:07 76 24 35 04/22/17 13:03 82 21 35 04/22/17 12:00 35 04/22/17 12:00 98.0 84 20 100/68 100 Mechanical Ventilator 35 04/22/17 12:00 82 04/22/17 11:14 81 23 35 Intake and Output 04/22/17 04/23/17 19:00 07:00 Intake Total 1933.330 ml 2042.416 ml Output Total 2600 ml 875 ml Balance -666.670 ml 1167.416 ml Free Water 100 ml IV Total 1158.330 ml 1492.416 ml Tube Feeding 495 ml 550 ml Other 180 ml Output Urine Total 2600 ml 875 ml Objective General Appearance: cachetic HEENT: normocephalic, atraumatic Respiratory/Chest: chest wall non-tender, lungs clear Cardiovascular: normal peripheral pulses, normal rate Abdomen: normal bowel sounds, soft, non tender Genitourinary: normal external genitalia Extremities: no clubbing Skin: no rash, no lesions, no ulcers Microbiology Date/Time Source Procedure Growth Status 04/20/17 11:00 Sputum Gram Stain - Final Resulted 04/20/17 11:00 Sputum Culture - Preliminary Gram Negative Bacillus 1 Gram Negative Bacillus 2 Usual Upper Respiratory Mary Resulted Laboratory Tests 04/23/17 04:00: White Blood Count 11.7H, Red Blood Count 3.99L, Hemoglobin 11.0L, Hematocrit 33.9L, Mean Corpuscular Volume 85, Mean Corpuscular Hemoglobin 27.5, Mean Corpuscular Hemoglobin Concent 32.4, Red Cell Distribution Width 16.5H, Platelet Count 465H, Mean Platelet Volume 7.1, Neutrophils (%) (Auto) , Lymphocytes (%) (Auto) , Monocytes (%) (Auto) , Eosinophils (%) (Auto) , Basophils (%) (Auto) , Differential Total Cells Counted 100, Neutrophils % ( Manual) 44L, Lymphocytes % (Manual) 18L, Monocytes % (Manual) 9, Eosinophils % ( Manual) 29H, Basophils % (Manual) 0, Band Neutrophils 0, Platelet Estimate Adequate, Platelet Morphology Normal, Hypochromasia 1+, Anisocytosis 1+, Sodium Level 133L, Potassium Level 4.3, Chloride Level 100, Carbon Dioxide Level 25, Anion Gap 8, Blood Urea Nitrogen 15, Creatinine 0.6L, Estimat Glomerular Filtration Rate > 60, Glucose Level 117H, Calcium Level 9.1, Phosphorus Level 2.1L, Magnesium Level 1.8, Total Bilirubin < 0.2, Aspartate Amino Transf (AST/ SGOT) 13, Alanine Aminotransferase (ALT/SGPT) 12, Alkaline Phosphatase 67, Total Protein 6.6, Albumin 2.7L, Globulin 3.9, Albumin/Globulin Ratio 0.6L Current Medications Medications (Trade) Dose Ordered Sig/Wanda Route PRN Reason Start Time Stop Time Status Last Admin Dose Admin Acetaminophen (Tylenol) 650 mg Q4H PRN ORAL T>100.5 04/14/17 20:15 05/14/17 20:14 Acetaminophen (Tylenol) 650 mg Q4H PRN RECTAL Mild Pain (Pain Scale 1-3) 04/14/17 20:13 05/14/17 19:44 Al Hydroxide/Mg Hydroxide (Mylanta II) 30 ml Q6H PRN ORAL dyspepsia 04/14/17 20:15 05/14/17 20:14 Amlodipine Besylate (Norvasc) 2.5 mg DAILY ORAL 04/15/17 09:00 05/15/17 08:59 04/23/17 09:14 Clonidine HCl (Catapres) 0.1 mg Q6H PRN ORAL sbp above 160 04/14/17 21:15 05/14/17 21:14 Dextrose (Dextrose 50%) STAT PRN IV Hypoglycemia 04/14/17 20:15 05/14/17 20:14 Diphenhydramine HCl (Benadryl) 25 mg Q6H PRN ORAL Itching/Pruritis 04/14/17 20:15 05/14/17 20:14 04/22/17 03:22 Lansoprazole (Prevacid) 30 mg DAILY GT 04/20/17 09:00 05/20/17 08:59 04/23/17 09:14 Levothyroxine Sodium (Synthroid) 50 mcg DAILY GT 04/15/17 09:00 05/15/17 08:59 04/23/17 09:14 Nitroglycerin (Ntg) 0.4 mg Q5M X 3 DOSES PRN SL Prn Chest Pain 04/14/17 20:15 05/14/17 20:14 Ondansetron HCl (Zofran) 4 mg Q6H PRN IVP Nausea & Vomiting 04/14/17 20:15 05/14/17 20:14 04/23/17 09:14 Polyethylene Glycol (Miralax) 17 gm HSPRN PRN ORAL Constipation 04/14/17 21:00 05/14/17 20:59 Sodium Chloride (Sodium Chloride 1000ml bag) 1,000 ml @ 100 mls/hr Q10H IV 04/14/17 20:00 05/14/17 19:59 04/23/17 04:35 Sucralfate (Carafate) 1 gm FOUR TIMES A DAY GT 04/14/17 21:00 05/14/17 20:59 04/23/17 09:15 MIKAYLA WILLOUGHBY Apr 23, 2017 10:22
--- NOTE | 2017-04-23 10:47 | GI Progress Note ---
Assessment/Plan Problems: (1) Gastrostomy tube dependent ICD Codes: Z93.1 - Gastrostomy tube dependent SNOMED: 781200065 (2) Hypoalbuminemia ICD Codes: E88.09 - Other disorders of plasma-protein metabolism, not elsewhere classified SNOMED: 716693715 (3) C. difficile colitis ICD Codes: A04.7 - C. difficile colitis SNOMED: 165949095 (4) Dysphagia ICD Codes: R13.10 - Dysphagia, unspecified SNOMED: 77928038, 970406636 (5) Malfunction of gastrostomy tube ICD Codes: K94.23 - Gastrostomy malfunction SNOMED: 758586511 (6) Anemia ICD Codes: D64.9 - Anemia, unspecified SNOMED: 094919634 (7) Protein-calorie malnutrition, severe ICD Codes: E43 - Unspecified severe protein-calorie malnutrition SNOMED: 944684959 (8) Esophagitis ICD Codes: K20.9 - Esophagitis SNOMED: 70371120 Status: stable, unchanged Status Narrative Discussed with Dr. Wilson. Assessment/Plan GT malfunction >> GT replaced OB stool positive GTFs per dietary iron deficient, venofer stable H&H, prn transfusions ppi carafate reflux measures fu labs Subjective Subjective limited Objective Last 24 Hour Vital Signs Date Time Temp Pulse Resp B/P Pulse Ox O2 Delivery O2 Flow Rate FiO2 04/23/17 09:14 97 126/68 04/23/17 08:30 97 24 35 04/23/17 08:00 97.3 91 24 126/68 96 Mechanical Ventilator 35 04/23/17 08:00 35 04/23/17 08:00 93 04/23/17 06:53 92 22 35 04/23/17 05:31 96 18 35 04/23/17 04:14 90 18 35 04/23/17 04:00 91 04/23/17 04:00 98.4 97 26 119/63 97 Mechanical Ventilator 35 04/23/17 04:00 35 04/23/17 02:10 75 22 35 04/23/17 00:00 35 04/23/17 00:00 98.2 92 26 110/78 99 Mechanical Ventilator 35 04/23/17 00:00 94 04/22/17 23:30 78 21 35 04/22/17 21:36 105 24 35 04/22/17 20:00 35 04/22/17 20:00 78 04/22/17 20:00 98.2 84 26 107/82 99 Mechanical Ventilator 35 04/22/17 19:49 87 19 35 04/22/17 17:14 76 19 35 04/22/17 16:07 79 04/22/17 16:00 35 04/22/17 16:00 97.8 84 26 133/82 99 Mechanical Ventilator 35 04/22/17 15:07 76 24 35 04/22/17 13:03 82 21 35 04/22/17 12:00 35 04/22/17 12:00 98.0 84 20 100/68 100 Mechanical Ventilator 35 04/22/17 12:00 82 04/22/17 11:14 81 23 35 Intake and Output 04/22/17 04/23/17 19:00 07:00 Intake Total 1933.330 ml 2042.416 ml Output Total 2600 ml 875 ml Balance -666.670 ml 1167.416 ml Free Water 100 ml IV Total 1158.330 ml 1492.416 ml Tube Feeding 495 ml 550 ml Other 180 ml Output Urine Total 2600 ml 875 ml Laboratory Tests Test 04/23/17 04:00 White Blood Count 11.7 K/UL (4.8-10.8) H Red Blood Count 3.99 M/UL (4.70-6.10) L Hemoglobin 11.0 G/DL (14.2-18.0) L Hematocrit 33.9 % (42.0-52.0) L Mean Corpuscular Volume 85 FL (80-99) Mean Corpuscular Hemoglobin 27.5 PG (27.0-31.0) Mean Corpuscular Hemoglobin Concent 32.4 G/DL (32.0-36.0) Red Cell Distribution Width 16.5 % (11.6-14.8) H Platelet Count 465 K/UL (150-450) H Mean Platelet Volume 7.1 FL (6.5-10.1) Neutrophils (%) (Auto) % (45.0-75.0) Lymphocytes (%) (Auto) % (20.0-45.0) Monocytes (%) (Auto) % (1.0-10.0) Eosinophils (%) (Auto) % (0.0-3.0) Basophils (%) (Auto) % (0.0-2.0) Differential Total Cells Counted 100 Neutrophils % (Manual) 44 % (45-75) L Lymphocytes % (Manual) 18 % (20-45) L Monocytes % (Manual) 9 % (1-10) Eosinophils % (Manual) 29 % (0-3) H Basophils % (Manual) 0 % (0-2) Band Neutrophils 0 % (0-8) Platelet Estimate Adequate Platelet Morphology Normal Hypochromasia 1+ Anisocytosis 1+ Sodium Level 133 mEQ/L (135-145) L Potassium Level 4.3 mEQ/L (3.4-4.9) Chloride Level 100 mEQ/L (98-107) Carbon Dioxide Level 25 mEQ/L (20-30) Anion Gap 8 (5-15) Blood Urea Nitrogen 15 mg/dL (7-23) Creatinine 0.6 mg/dL (0.7-1.2) L Estimat Glomerular Filtration Rate > 60 mL/min (>60) Glucose Level 117 mg/dL (74-106) H Calcium Level 9.1 mg/dL (8.6-10.2) Phosphorus Level 2.1 mg/dL (2.5-4.8) L Magnesium Level 1.8 mg/dL (1.7-2.5) Total Bilirubin < 0.2 mg/dL (0.0-1.2) Aspartate Amino Transf (AST/SGOT) 13 U/L (5-40) Alanine Aminotransferase (ALT/SGPT) 12 U/L (3-41) Alkaline Phosphatase 67 U/L (40-129) Total Protein 6.6 g/dL (6.6-8.7) Albumin 2.7 g/dL (3.5-5.2) L Globulin 3.9 g/dL Albumin/Globulin Ratio 0.6 (1.0-2.7) L Height (Feet): 5 Height (Inches): 6.00 Weight (Pounds): 141 General Appearance: no apparent distress, alert Cardiovascular: normal rate Respiratory/Chest: normal breath sounds, no respiratory distress Abdominal Exam: site - c/d/i Arabella Quesada N.P. Apr 23, 2017 10:47
[2017-04-23 12:00] VITALS: BP 119/64
[2017-04-23 12:19] LABS: OTHERS PATHOLOGIST COMMENT
--- NOTE | 2017-04-23 12:29 | Diagnostic Imaging Report ---
Indication: Dyspnea Technique: One view of the chest Comparison: 04/20/2007 Findings: The patient is rotated to the right. There is interim partial clearing of previously demonstrated left perihilar and right mid and lower lung opacities, with only minimal residual. No new infiltrates. Pleural spaces are clear. Heart size is normal Impression: Improved bilateral infiltrates versus edema, over 3 days
[2017-04-23 16:00] VITALS: BP 103/59
[2017-04-23] MEDS ORDERED: Miralax 17gm pkt GT PRN (16:00)
[2017-04-23] MEDS ORDERED: Mylanta II UD 30ml GT PRN (16:00)
[2017-04-23 19:52] VITALS: BP 114/51
[2017-04-24] VITALS: BP 111/59
[2017-04-24 04:00] VITALS: BP 118/62
[2017-04-24 04:54] LABS: MEAN CORPUSCULAR HEMOGLOBIN 27.6 PG (27.0-31.0); MEAN CORPUSCULAR HGB CONC 32.4 G/DL (32.0-36.0); MEAN CORPUSCULAR VOLUME 85 FL (80-99); PLATELET COUNT 421 K/UL (150-450); RED BLOOD COUNT 3.74 M/UL (4.70-6.10); RED CELL DISTRIBUTION WIDTH 16.6 % (11.6-14.8)
[2017-04-24 05:17] LABS: ANION GAP 10 (5-15); CALCIUM 8.8 mg/dL (8.6-10.2); CARBON DIOXIDE 24 mEQ/L (20-30); CHLORIDE 102 mEQ/L (98-107); CREATININE 0.6 mg/dL (0.7-1.2); GLOMERULAR FILTRATION RATE > 60 mL/min (>60); HEMOLYSIS 1; POTASSIUM 3.7 mEQ/L (3.4-4.9); SODIUM 136 mEQ/L (135-145)
[2017-04-24 05:26] LABS: WHITE BLOOD COUNT 26.9 K/UL (4.8-10.8)
[2017-04-24 08:00] VITALS: BP 125/75
[2017-04-24 08:05] LABS: BAND NEUTROPHILS % (MANUAL) 2 % (0-8); BASOPHILS % (MANUAL) 0 % (0-2); EOSINOPHILS % (MANUAL) 2 % (0-3); LYMPHOCYTES % (MANUAL) 11 % (20-45); NEUTROPHILS % (MANUAL) 83 % (45-75); PLATELET ESTIMATE ADEQUATE; PLATELET MORPHOLOGY NORMAL; TOTAL CELLS COUNTED 100
[2017-04-24 08:06] LABS: HYPOCHROMASIA 1+
[2017-04-24] MEDS: Sucralfate 1gm tab GT SCH ×4 (08:06→20:31)
--- NOTE | 2017-04-24 08:06 | Pulmonology Progress Note ---
Assessment/Plan Problems: (1) Respiratory failure, [id number] (2) Sepsis (3) Aspiration pneumonia (4) UGIB (upper gastrointestinal bleed) (5) Malfunction of gastrostomy tube (6) Protein-calorie malnutrition, severe Respiratory: monitor respiratory rate, adjust FIO2, CXR Cardiac: continue to monitor HR/BP Renal: F/U I&O, keep IV fluid Infectious Disease: check cultures, add antibiotics, other - eduardo culture again Gastrointestinal: continue feedings/current rate Endocrine: monitor blood sugar, check TSH, continue sliding scale insulin Hematologic: monitor H/H, transfuse if hgb<8.5 Neurologic: PRN Ativan, PRN Morphine, keep patient comfortable Affect: PRN ativan Prophylaxis: Heparin 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, 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, 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 with: nurses, consultants, renal case manager Subjective ROS Limited/Unobtainable: Yes Constitutional: Reports: no symptoms HEENT: Repors: no symptoms Allergies: Coded Allergies: NO KNOWN DRUG ALLERGIES (Verified Allergy, Unknown, 09/11/16) Objective Last 24 Hour Vital Signs Date Time Temp Pulse Resp B/P Pulse Ox O2 Delivery O2 Flow Rate FiO2 04/24/17 06:42 92 25 35 04/24/17 05:25 79 27 35 04/24/17 04:00 98 04/24/17 04:00 98.5 93 18 118/62 99 Mechanical Ventilator 35 04/24/17 04:00 35 04/24/17 03:50 83 21 35 04/24/17 01:27 98 18 35 04/24/17 00:17 110 26 35 04/24/17 00:00 97 04/24/17 00:00 35 04/24/17 00:00 98.9 95 18 111/59 98 Mechanical Ventilator 35 04/23/17 21:30 99.0 04/23/17 21:20 101 24 35 04/23/17 20:49 99.0 04/23/17 20:04 123 04/23/17 20:00 35 04/23/17 19:52 101.8 125 18 114/51 98 Mechanical Ventilator 35 04/23/17 19:38 123 27 35 04/23/17 16:30 101 22 35 04/23/17 16:00 35 04/23/17 16:00 111 04/23/17 16:00 98.2 110 22 103/59 100 Mechanical Ventilator 35 04/23/17 15:02 103 23 35 04/23/17 13:40 95 22 35 04/23/17 12:24 98 04/23/17 12:00 35 04/23/17 12:00 97.8 24 119/64 97 Mechanical Ventilator 35 04/23/17 11:00 99 24 35 04/23/17 09:14 97 126/68 04/23/17 08:30 97 24 35 Intake and Output 04/23/17 04/24/17 19:00 07:00 Intake Total 1640 ml 2005 ml Output Total 650 ml 800 ml Balance 990 ml 1205 ml Free Water 200 ml 200 ml IV Total 1000 ml 1200 ml Tube Feeding 440 ml 605 ml Output Urine Total 650 ml 800 ml # Voids 1 # Bowel Movements 4 2 Objective General Appearance: cachetic HEENT: normocephalic, atraumatic Respiratory/Chest: chest wall non-tender, lungs clear Cardiovascular: normal peripheral pulses, normal rate Abdomen: normal bowel sounds, soft, non tender Genitourinary: normal external genitalia Extremities: no clubbing Skin: no rash, no lesions, no ulcers Laboratory Tests 04/24/17 03:10: White Blood Count 26.9#*H, Red Blood Count 3.74L, Hemoglobin 10.3L, Hematocrit 31.8L, Mean Corpuscular Volume 85, Mean Corpuscular Hemoglobin 27.6, Mean Corpuscular Hemoglobin Concent 32.4, Red Cell Distribution Width 16.6H, Platelet Count 421, Mean Platelet Volume 7.0, Neutrophils (%) (Auto) , Lymphocytes (%) (Auto) , Monocytes (%) (Auto) , Eosinophils (%) (Auto) , Basophils (%) (Auto) , Neutrophils % (Manual) [Pending], Lymphocytes % (Manual) [Pending], Platelet Estimate [Pending], Platelet Morphology [Pending], Sodium Level 136, Potassium Level 3.7, Chloride Level 102, Carbon Dioxide Level 24, Anion Gap 10, Blood Urea Nitrogen 13, Creatinine 0.6L, Estimat Glomerular Filtration Rate > 60, Glucose Level 107H, Calcium Level 8.8, Phosphorus Level 2.0L Current Medications Medications (Trade) Dose Ordered Sig/Wanda Route PRN Reason Start Time Stop Time Status Last Admin Dose Admin Acetaminophen (Tylenol) 650 mg Q4H PRN ORAL T>100.5 04/14/17 20:15 05/14/17 20:14 04/23/17 19:50 Acetaminophen (Tylenol) 650 mg Q4H PRN RECTAL Mild Pain (Pain Scale 1-3) 04/14/17 20:13 05/14/17 19:44 Al Hydroxide/Mg Hydroxide (Mylanta II) 30 ml Q6H PRN GT dyspepsia 04/23/17 16:00 05/14/17 20:14 Amlodipine Besylate (Norvasc) 2.5 mg DAILY GT 04/24/17 09:00 05/15/17 08:59 Clonidine HCl (Catapres) 0.1 mg Q6H PRN GT sbp above 160 04/23/17 16:00 05/14/17 21:14 Dextrose (Dextrose 50%) STAT PRN IV Hypoglycemia 04/14/17 20:15 05/14/17 20:14 Diphenhydramine HCl (Benadryl) 25 mg Q6H PRN ORAL Itching/Pruritis 04/14/17 20:15 05/14/17 20:14 04/23/17 19:50 Lansoprazole (Prevacid) 30 mg DAILY GT 04/20/17 09:00 05/20/17 08:59 04/23/17 09:14 Levothyroxine Sodium (Synthroid) 50 mcg DAILY GT 04/15/17 09:00 05/15/17 08:59 04/23/17 09:14 Metoclopramide HCl (Reglan) 5 mg QID GT 04/23/17 18:00 05/23/17 12:59 04/23/17 20:42 Nitroglycerin (Ntg) 0.4 mg Q5M X 3 DOSES PRN SL Prn Chest Pain 04/14/17 20:15 05/14/17 20:14 Ondansetron HCl (Zofran) 4 mg Q6H PRN IVP Nausea & Vomiting 04/14/17 20:15 05/14/17 20:14 04/23/17 09:14 Polyethylene Glycol (Miralax) 17 gm HSPRN PRN GT Constipation 04/23/17 16:00 05/14/17 20:59 Sodium Chloride (Sodium Chloride 1000ml bag) 1,000 ml @ 100 mls/hr Q10H IV 04/14/17 20:00 05/14/17 19:59 04/24/17 00:01 Sucralfate (Carafate) 1 gm FOUR TIMES A DAY GT 04/14/17 21:00 05/14/17 20:59 04/23/17 20:42 MIKAYLA WILLOUGHBY Apr 24, 2017 08:06
[2017-04-24 08:07] LABS: ANISOCYTOSIS 1+
[2017-04-24] MEDS ORDERED: Meropenem 500 MG in NS 55 ML IVPB SCH (10:15)
--- NOTE | 2017-04-24 10:15 | Infectious Diseases Prog Note ---
Assessment/Plan Assessment/Plan A: Rash & Eosinophilia Sepsis Pneumonia improving Fungal UTI GT dislodgement, Changed Esophagitis P: start empirically on Colistin inhaler & Meropenem will f/u cultures Subjective ROS Limited/Unobtainable: Yes Constitutional: Reports: fever, other - T [id number]=[id number] last night Allergies: Coded Allergies: NO KNOWN DRUG ALLERGIES (Verified Allergy, Unknown, 09/11/16) Objective Vital Signs Last 24 Hour Vital Signs Date Time Temp Pulse Resp B/P Pulse Ox O2 Delivery O2 Flow Rate FiO2 04/24/17 08:52 78 25 35 04/24/17 08:06 88 125/75 04/24/17 08:00 35 04/24/17 08:00 99.7 91 22 125/75 100 Mechanical Ventilator 35 04/24/17 07:50 88 04/24/17 06:42 92 25 35 04/24/17 05:25 79 27 35 04/24/17 04:00 98 04/24/17 04:00 98.5 93 18 118/62 99 Mechanical Ventilator 35 04/24/17 04:00 35 04/24/17 03:50 83 21 35 04/24/17 01:27 98 18 35 04/24/17 00:17 110 26 35 04/24/17 00:00 97 04/24/17 00:00 35 04/24/17 00:00 98.9 95 18 111/59 98 Mechanical Ventilator 35 04/23/17 21:30 99.0 04/23/17 21:20 101 24 35 04/23/17 20:49 99.0 04/23/17 20:04 123 04/23/17 20:00 35 04/23/17 19:52 101.8 125 18 114/51 98 Mechanical Ventilator 35 04/23/17 19:38 123 27 35 04/23/17 16:30 101 22 35 04/23/17 16:00 35 04/23/17 16:00 111 04/23/17 16:00 98.2 110 22 103/59 100 Mechanical Ventilator 35 04/23/17 15:02 103 23 35 04/23/17 13:40 95 22 35 04/23/17 12:24 98 04/23/17 12:00 35 04/23/17 12:00 97.8 24 119/64 97 Mechanical Ventilator 35 04/23/17 11:00 99 24 35 Height (Feet): 5 Height (Inches): 6.00 Weight (Pounds): 142 General Appearance: cachetic HEENT: status post trach Respiratory/Chest: lungs clear, other - on ventilator Cardiovascular: normal rate Abdomen: soft, non tender, other - GT feeding Extremities: other - contracted Skin: rash Neurologic/Psychiatric: other - opens eyes Laboratory Tests Test 04/24/17 03:10 White Blood Count 26.9 K/UL (4.8-10.8) #*H Red Blood Count 3.74 M/UL (4.70-6.10) L Hemoglobin 10.3 G/DL (14.2-18.0) L Hematocrit 31.8 % (42.0-52.0) L Mean Corpuscular Volume 85 FL (80-99) Mean Corpuscular Hemoglobin 27.6 PG (27.0-31.0) Mean Corpuscular Hemoglobin Concent 32.4 G/DL (32.0-36.0) Red Cell Distribution Width 16.6 % (11.6-14.8) H Platelet Count 421 K/UL (150-450) Mean Platelet Volume 7.0 FL (6.5-10.1) Neutrophils (%) (Auto) % (45.0-75.0) Lymphocytes (%) (Auto) % (20.0-45.0) Monocytes (%) (Auto) % (1.0-10.0) Eosinophils (%) (Auto) % (0.0-3.0) Basophils (%) (Auto) % (0.0-2.0) Differential Total Cells Counted 100 Neutrophils % (Manual) 83 % (45-75) H Lymphocytes % (Manual) 11 % (20-45) L Monocytes % (Manual) 2 % (1-10) Eosinophils % (Manual) 2 % (0-3) Basophils % (Manual) 0 % (0-2) Band Neutrophils 2 % (0-8) Platelet Estimate Adequate Platelet Morphology Normal Hypochromasia 1+ Anisocytosis 1+ Sodium Level 136 mEQ/L (135-145) Potassium Level 3.7 mEQ/L (3.4-4.9) Chloride Level 102 mEQ/L (98-107) Carbon Dioxide Level 24 mEQ/L (20-30) Anion Gap 10 (5-15) Blood Urea Nitrogen 13 mg/dL (7-23) Creatinine 0.6 mg/dL (0.7-1.2) L Estimat Glomerular Filtration Rate > 60 mL/min (>60) Glucose Level 107 mg/dL (74-106) H Calcium Level 8.8 mg/dL (8.6-10.2) Phosphorus Level 2.0 mg/dL (2.5-4.8) L Current Medications Medications (Trade) Dose Ordered Sig/Wanda Route PRN Reason Start Time Stop Time Status Last Admin Dose Admin Acetaminophen (Tylenol) 650 mg Q4H PRN ORAL T>100.5 04/14/17 20:15 05/14/17 20:14 04/23/17 19:50 Acetaminophen (Tylenol) 650 mg Q4H PRN RECTAL Mild Pain (Pain Scale 1-3) 04/14/17 20:13 05/14/17 19:44 Al Hydroxide/Mg Hydroxide (Mylanta II) 30 ml Q6H PRN GT dyspepsia 04/23/17 16:00 05/14/17 20:14 Amlodipine Besylate (Norvasc) 2.5 mg DAILY GT 04/24/17 09:00 05/15/17 08:59 04/24/17 08:06 Clonidine HCl (Catapres) 0.1 mg Q6H PRN GT sbp above 160 04/23/17 16:00 05/14/17 21:14 Dextrose (Dextrose 50%) STAT PRN IV Hypoglycemia 04/14/17 20:15 05/14/17 20:14 Diphenhydramine HCl (Benadryl) 25 mg Q6H PRN ORAL Itching/Pruritis 04/14/17 20:15 05/14/17 20:14 04/24/17 08:06 Lansoprazole (Prevacid) 30 mg DAILY GT 04/20/17 09:00 05/20/17 08:59 04/24/17 08:06 Levothyroxine Sodium (Synthroid) 50 mcg DAILY GT 04/15/17 09:00 05/15/17 08:59 04/24/17 08:06 Metoclopramide HCl (Reglan) 5 mg QID GT 04/23/17 18:00 05/23/17 12:59 04/24/17 08:06 Nitroglycerin (Ntg) 0.4 mg Q5M X 3 DOSES PRN SL Prn Chest Pain 04/14/17 20:15 05/14/17 20:14 Ondansetron HCl (Zofran) 4 mg Q6H PRN IVP Nausea & Vomiting 04/14/17 20:15 05/14/17 20:14 04/23/17 09:14 Polyethylene Glycol (Miralax) 17 gm HSPRN PRN GT Constipation 04/23/17 16:00 05/14/17 20:59 Sodium Chloride (Sodium Chloride 1000ml bag) 1,000 ml @ 100 mls/hr Q10H IV 04/14/17 20:00 05/14/17 19:59 04/24/17 10:00 Sucralfate (Carafate) 1 gm FOUR TIMES A DAY GT 04/14/17 21:00 05/14/17 20:59 04/24/17 08:06 SHANNA BERRY Apr 24, 2017 10:15
[2017-04-24] MEDS: Meropenem 1gm/NS 110ml IVPB SCH ×4 (11:11→21:19)
[2017-04-24] MEDS: Colistin for inhalation INH SCH ×2 (11:34→23:09)
[2017-04-24 12:00] VITALS: BP 124/80
--- NOTE | 2017-04-24 13:54 | GI Progress Note ---
Assessment/Plan Problems: (1) Gastrostomy tube dependent ICD Codes: Z93.1 - Gastrostomy tube dependent SNOMED: 285368898 (2) Hypoalbuminemia ICD Codes: E88.09 - Other disorders of plasma-protein metabolism, not elsewhere classified SNOMED: 979749083 (3) C. difficile colitis ICD Codes: A04.7 - C. difficile colitis SNOMED: 529276783 (4) Dysphagia ICD Codes: R13.10 - Dysphagia, unspecified SNOMED: 68299498, 702293857 (5) Malfunction of gastrostomy tube ICD Codes: K94.23 - Gastrostomy malfunction SNOMED: 232816310 (6) Anemia ICD Codes: D64.9 - Anemia, unspecified SNOMED: 508275815 (7) Protein-calorie malnutrition, severe ICD Codes: E43 - Unspecified severe protein-calorie malnutrition SNOMED: 467593886 (8) Esophagitis ICD Codes: K20.9 - Esophagitis SNOMED: 61760781 Status: unchanged Status Narrative Discussed with Dr. Wilson. Assessment/Plan GT malfunction >> GT replaced OB stool positive GTFs per dietary iron deficient, venofer stable H&H, prn transfusions ppi carafate reflux measures low dose reglan fu labs Subjective Subjective limited Objective Last 24 Hour Vital Signs Date Time Temp Pulse Resp B/P Pulse Ox O2 Delivery O2 Flow Rate FiO2 04/24/17 12:40 79 22 35 04/24/17 12:00 35 04/24/17 12:00 98.0 85 25 124/80 100 Mechanical Ventilator 35 04/24/17 11:42 92 19 100 Mechanical Ventilator 15.0 35 04/24/17 11:35 35 04/24/17 11:35 85 14 100 Mechanical Ventilator 15.0 35 04/24/17 11:33 84 04/24/17 10:50 87 25 35 04/24/17 08:52 78 25 35 04/24/17 08:06 88 125/75 04/24/17 08:00 35 04/24/17 08:00 99.7 91 22 125/75 100 Mechanical Ventilator 35 04/24/17 07:50 88 04/24/17 06:42 92 25 35 04/24/17 05:25 79 27 35 04/24/17 04:00 98 04/24/17 04:00 98.5 93 18 118/62 99 Mechanical Ventilator 35 04/24/17 04:00 35 04/24/17 03:50 83 21 35 04/24/17 01:27 98 18 35 04/24/17 00:17 110 26 35 04/24/17 00:00 97 04/24/17 00:00 35 04/24/17 00:00 98.9 95 18 111/59 98 Mechanical Ventilator 35 04/23/17 21:30 99.0 04/23/17 21:20 101 24 35 04/23/17 20:49 99.0 04/23/17 20:04 123 04/23/17 20:00 35 04/23/17 19:52 101.8 125 18 114/51 98 Mechanical Ventilator 35 04/23/17 19:38 123 27 35 04/23/17 16:30 101 22 35 04/23/17 16:00 35 04/23/17 16:00 111 04/23/17 16:00 98.2 110 22 103/59 100 Mechanical Ventilator 35 04/23/17 15:02 103 23 35 Intake and Output 04/23/17 04/24/17 19:00 07:00 Intake Total 1640 ml 2005 ml Output Total 650 ml 800 ml Balance 990 ml 1205 ml Free Water 200 ml 200 ml IV Total 1000 ml 1200 ml Tube Feeding 440 ml 605 ml Output Urine Total 650 ml 800 ml # Voids 1 # Bowel Movements 4 2 Laboratory Tests Test 04/24/17 03:10 White Blood Count 26.9 K/UL (4.8-10.8) #*H Red Blood Count 3.74 M/UL (4.70-6.10) L Hemoglobin 10.3 G/DL (14.2-18.0) L Hematocrit 31.8 % (42.0-52.0) L Mean Corpuscular Volume 85 FL (80-99) Mean Corpuscular Hemoglobin 27.6 PG (27.0-31.0) Mean Corpuscular Hemoglobin Concent 32.4 G/DL (32.0-36.0) Red Cell Distribution Width 16.6 % (11.6-14.8) H Platelet Count 421 K/UL (150-450) Mean Platelet Volume 7.0 FL (6.5-10.1) Neutrophils (%) (Auto) % (45.0-75.0) Lymphocytes (%) (Auto) % (20.0-45.0) Monocytes (%) (Auto) % (1.0-10.0) Eosinophils (%) (Auto) % (0.0-3.0) Basophils (%) (Auto) % (0.0-2.0) Differential Total Cells Counted 100 Neutrophils % (Manual) 83 % (45-75) H Lymphocytes % (Manual) 11 % (20-45) L Monocytes % (Manual) 2 % (1-10) Eosinophils % (Manual) 2 % (0-3) Basophils % (Manual) 0 % (0-2) Band Neutrophils 2 % (0-8) Platelet Estimate Adequate Platelet Morphology Normal Hypochromasia 1+ Anisocytosis 1+ Sodium Level 136 mEQ/L (135-145) Potassium Level 3.7 mEQ/L (3.4-4.9) Chloride Level 102 mEQ/L (98-107) Carbon Dioxide Level 24 mEQ/L (20-30) Anion Gap 10 (5-15) Blood Urea Nitrogen 13 mg/dL (7-23) Creatinine 0.6 mg/dL (0.7-1.2) L Estimat Glomerular Filtration Rate > 60 mL/min (>60) Glucose Level 107 mg/dL (74-106) H Calcium Level 8.8 mg/dL (8.6-10.2) Phosphorus Level 2.0 mg/dL (2.5-4.8) L Height (Feet): 5 Height (Inches): 6.00 Weight (Pounds): 142 General Appearance: no apparent distress, alert Cardiovascular: normal rate Respiratory/Chest: other - mech vent Abdominal Exam: GT site - c/d/i Objective emesis per RN report yesterday, none reported today Arabella Quesada N.P. Apr 24, 2017 13:54
[2017-04-24 16:00] VITALS: BP 130/75
[2017-04-24 20:00] VITALS: BP 121/70
[2017-04-25] VITALS: BP 128/72
[2017-04-25 04:00] VITALS: BP 115/54
[2017-04-25] MEDS: Meropenem 1gm/NS 110ml IVPB SCH ×6 (05:11→21:24)
[2017-04-25 05:41] LABS: ALANINE AMINOTRANSFERASE 11 U/L (3-41); ALBUMIN/GLOBULIN RATIO 0.8 (1.0-2.7); ANION GAP 15 (5-15); ASPARTATE AMINO TRANSFERASE 15 U/L (5-40); CALCIUM 8.7 mg/dL (8.6-10.2); CARBON DIOXIDE 20 mEQ/L (20-30); CHLORIDE 98 mEQ/L (98-107); CREATININE 0.7 mg/dL (0.7-1.2); GLOMERULAR FILTRATION RATE > 60 mL/min (>60); HEMOLYSIS 6; POTASSIUM 3.9 mEQ/L (3.4-4.9); SODIUM 133 mEQ/L (135-145); TOTAL PROTEIN 6.4 g/dL (6.6-8.7)
[2017-04-25 05:48] LABS: MEAN CORPUSCULAR HEMOGLOBIN 27.6 PG (27.0-31.0); MEAN CORPUSCULAR HGB CONC 31.3 G/DL (32.0-36.0); MEAN CORPUSCULAR VOLUME 88 FL (80-99); MEAN PLATELET VOLUME 6.1 FL (6.5-10.1); PLATELET COUNT 398 K/UL (150-450); RED BLOOD COUNT 3.69 M/UL (4.70-6.10); RED CELL DISTRIBUTION WIDTH 17.9 % (11.6-14.8)
[2017-04-25 08:00] VITALS: BP 100/57
[2017-04-25 09:40] LABS: BAND NEUTROPHILS % (MANUAL) 11 % (0-8); BASOPHILS % (MANUAL) 0 % (0-2); EOSINOPHILS % (MANUAL) 3 % (0-3); LYMPHOCYTES % (MANUAL) 11 % (20-45); NEUTROPHILS % (MANUAL) 68 % (45-75); PLATELET ESTIMATE ADEQUATE; PLATELET MORPHOLOGY NORMAL; TOTAL CELLS COUNTED 100
[2017-04-25 09:41] LABS: ANISOCYTOSIS 1+; BURR CELLS 1+
[2017-04-25] MEDS ORDERED: NS 275ml ONE (10:06)
[2017-04-25] MEDS: Sucralfate 1gm tab GT SCH ×4 (10:11→21:23)
--- NOTE | 2017-04-25 11:08 | GI Progress Note ---
Assessment/Plan Problems: (1) Gastrostomy tube dependent ICD Codes: Z93.1 - Gastrostomy tube dependent SNOMED: 728451465 (2) Hypoalbuminemia ICD Codes: E88.09 - Other disorders of plasma-protein metabolism, not elsewhere classified SNOMED: 628313899 (3) C. difficile colitis ICD Codes: A04.7 - C. difficile colitis SNOMED: 734567748 (4) Dysphagia ICD Codes: R13.10 - Dysphagia, unspecified SNOMED: 38718434, 835239511 (5) Malfunction of gastrostomy tube ICD Codes: K94.23 - Gastrostomy malfunction SNOMED: 906451015 (6) Anemia ICD Codes: D64.9 - Anemia, unspecified SNOMED: 165120284 (7) Protein-calorie malnutrition, severe ICD Codes: E43 - Unspecified severe protein-calorie malnutrition SNOMED: 494748602 (8) Esophagitis ICD Codes: K20.9 - Esophagitis SNOMED: 59249298 Status: not improved, unchanged Status Narrative Discussed with Dr. Wilson. Assessment/Plan GT malfunction >> GT replaced OB stool positive fu cdiff >> dc ppi, add H2B GTFs per dietary iron deficient, venofer stable H&H, prn transfusions carafate reflux measures low dose reglan fu labs Subjective Subjective limited Objective Last 24 Hour Vital Signs Date Time Temp Pulse Resp B/P Pulse Ox O2 Delivery O2 Flow Rate FiO2 04/25/17 10:11 85 100/57 04/25/17 08:42 85 21 35 04/25/17 08:00 35 04/25/17 08:00 85 04/25/17 08:00 98.4 82 20 100/57 100 Mechanical Ventilator 35 04/25/17 07:39 82 20 35 04/25/17 05:26 79 17 35 04/25/17 04:00 35 04/25/17 04:00 99.8 91 23 115/54 100 Mechanical Ventilator 35 04/25/17 03:40 95 04/25/17 03:18 88 21 35 04/25/17 00:39 92 20 35 04/25/17 00:00 98.5 85 18 128/72 98 Mechanical Ventilator 35 04/25/17 00:00 94 04/25/17 00:00 35 04/24/17 23:12 85 16 35 04/24/17 22:15 90 20 100 Mechanical Ventilator 35 04/24/17 22:00 87 19 100 Mechanical Ventilator 35 04/24/17 22:00 35 04/24/17 21:28 89 17 35 04/24/17 20:00 98.9 88 20 121/70 98 Mechanical Ventilator 04/24/17 20:00 35 04/24/17 19:56 90 04/24/17 19:30 98 29 35 04/24/17 17:00 81 22 35 04/24/17 16:00 98.2 87 17 130/75 98 Mechanical Ventilator 35 04/24/17 16:00 81 04/24/17 16:00 35 04/24/17 15:06 75 25 35 04/24/17 12:40 79 22 35 04/24/17 12:00 35 04/24/17 12:00 98.0 85 25 124/80 100 Mechanical Ventilator 35 04/24/17 11:42 92 19 100 Mechanical Ventilator 15.0 35 04/24/17 11:35 35 04/24/17 11:35 85 14 100 Mechanical Ventilator 15.0 35 04/24/17 11:33 84 Intake and Output 04/24/17 04/25/17 19:00 07:00 Intake Total 2080 ml 2262 ml Output Total 1100 ml 1000 ml Balance 980 ml 1262 ml Free Water 200 ml 250 ml IV Total 1210 ml 1352 ml Tube Feeding 550 ml 660 ml Other 120 ml Output Urine Total 1100 ml 1000 ml # Bowel Movements 2 1 Laboratory Tests Test 04/25/17 03:45 White Blood Count 26.0 K/UL (4.8-10.8) *H Red Blood Count 3.69 M/UL (4.70-6.10) L Hemoglobin 10.2 G/DL (14.2-18.0) L Hematocrit 32.4 % (42.0-52.0) L Mean Corpuscular Volume 88 FL (80-99) Mean Corpuscular Hemoglobin 27.6 PG (27.0-31.0) Mean Corpuscular Hemoglobin Concent 31.3 G/DL (32.0-36.0) L Red Cell Distribution Width 17.9 % (11.6-14.8) H Platelet Count 398 K/UL (150-450) Mean Platelet Volume 6.1 FL (6.5-10.1) L Neutrophils (%) (Auto) % (45.0-75.0) Lymphocytes (%) (Auto) % (20.0-45.0) Monocytes (%) (Auto) % (1.0-10.0) Eosinophils (%) (Auto) % (0.0-3.0) Basophils (%) (Auto) % (0.0-2.0) Differential Total Cells Counted 100 Neutrophils % (Manual) 68 % (45-75) Lymphocytes % (Manual) 11 % (20-45) L Monocytes % (Manual) 7 % (1-10) Eosinophils % (Manual) 3 % (0-3) Basophils % (Manual) 0 % (0-2) Band Neutrophils 11 % (0-8) H Platelet Estimate Adequate Platelet Morphology Normal Anisocytosis 1+ [place] Cells 1+ Sodium Level 133 mEQ/L (135-145) L Potassium Level 3.9 mEQ/L (3.4-4.9) Chloride Level 98 mEQ/L (98-107) Carbon Dioxide Level 20 mEQ/L (20-30) Anion Gap 15 (5-15) Blood Urea Nitrogen 14 mg/dL (7-23) Creatinine 0.7 mg/dL (0.7-1.2) Estimat Glomerular Filtration Rate > 60 mL/min (>60) Glucose Level 62 mg/dL (74-106) L Calcium Level 8.7 mg/dL (8.6-10.2) Total Bilirubin 0.2 mg/dL (0.0-1.2) Aspartate Amino Transf (AST/SGOT) 15 U/L (5-40) Alanine Aminotransferase (ALT/SGPT) 11 U/L (3-41) Alkaline Phosphatase 63 U/L (40-129) Pro-B-Type Natriuretic Peptide 553 pg/mL (0-125) H Total Protein 6.4 g/dL (6.6-8.7) L Albumin 2.9 g/dL (3.5-5.2) L Globulin 3.5 g/dL Albumin/Globulin Ratio 0.8 (1.0-2.7) L Height (Feet): 5 Height (Inches): 6.00 Weight (Pounds): 142 General Appearance: no apparent distress, alert Cardiovascular: normal rate Respiratory/Chest: other - mech vent Abdominal Exam: GT site - c/d/i Objective emesis per RN report yesterday, none reported today Arabella Quesada N.P. Apr 25, 2017 11:08
--- NOTE | 2017-04-25 11:14 | Pulmonology Progress Note ---
Assessment/Plan Problems: (1) Respiratory failure, [id number] (2) Sepsis (3) Aspiration pneumonia (4) UGIB (upper gastrointestinal bleed) (5) Malfunction of gastrostomy tube (6) Protein-calorie malnutrition, severe Respiratory: monitor respiratory rate Cardiac: continue to monitor HR/BP Renal: F/U I&O, keep IV fluid Infectious Disease: check cultures, other - on colsitin inhalation and meropenem Gastrointestinal: adjust feedings Endocrine: monitor blood sugar, continue sliding scale insulin Hematologic: monitor H/H, transfuse if hgb<8.5 Neurologic: PRN Morphine, keep patient comfortable Affect: PRN ativan Prophylaxis: Protonix 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, 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 with: nurses, consultants, 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 case assembler Subjective ROS Limited/Unobtainable: Yes Allergies: Coded Allergies: NO KNOWN DRUG ALLERGIES (Verified Allergy, Unknown, 09/11/16) Objective Last 24 Hour Vital Signs Date Time Temp Pulse Resp B/P Pulse Ox O2 Delivery O2 Flow Rate FiO2 04/25/17 10:11 85 100/57 04/25/17 08:42 85 21 35 04/25/17 08:00 35 04/25/17 08:00 85 04/25/17 08:00 98.4 82 20 100/57 100 Mechanical Ventilator 35 04/25/17 07:39 82 20 35 04/25/17 05:26 79 17 35 04/25/17 04:00 35 04/25/17 04:00 99.8 91 23 115/54 100 Mechanical Ventilator 35 04/25/17 03:40 95 04/25/17 03:18 88 21 35 04/25/17 00:39 92 20 35 04/25/17 00:00 98.5 85 18 128/72 98 Mechanical Ventilator 35 04/25/17 00:00 94 04/25/17 00:00 35 04/24/17 23:12 85 16 35 04/24/17 22:15 90 20 100 Mechanical Ventilator 35 04/24/17 22:00 87 19 100 Mechanical Ventilator 35 04/24/17 22:00 35 04/24/17 21:28 89 17 35 04/24/17 20:00 98.9 88 20 121/70 98 Mechanical Ventilator 04/24/17 20:00 35 04/24/17 19:56 90 04/24/17 19:30 98 29 35 04/24/17 17:00 81 22 35 04/24/17 16:00 98.2 87 17 130/75 98 Mechanical Ventilator 35 04/24/17 16:00 81 04/24/17 16:00 35 04/24/17 15:06 75 25 35 04/24/17 12:40 79 22 35 04/24/17 12:00 35 04/24/17 12:00 98.0 85 25 124/80 100 Mechanical Ventilator 35 04/24/17 11:42 92 19 100 Mechanical Ventilator 15.0 35 04/24/17 11:35 35 04/24/17 11:35 85 14 100 Mechanical Ventilator 15.0 35 04/24/17 11:33 84 Intake and Output 04/24/17 04/25/17 19:00 07:00 Intake Total 2080 ml 2262 ml Output Total 1100 ml 1000 ml Balance 980 ml 1262 ml Free Water 200 ml 250 ml IV Total 1210 ml 1352 ml Tube Feeding 550 ml 660 ml Other 120 ml Output Urine Total 1100 ml 1000 ml # Bowel Movements 2 1 Objective General Appearance: cachetic HEENT: normocephalic, atraumatic Respiratory/Chest: chest wall non-tender, lungs clear Cardiovascular: normal peripheral pulses, normal rate Abdomen: normal bowel sounds, soft, non tender Genitourinary: normal external genitalia Extremities: no clubbing Skin: no rash, no lesions, no ulcers Microbiology Date/Time Source Procedure Growth Status 04/24/17 08:20 Sputum Induced Gram Stain - Final Resulted 04/24/17 08:20 Sputum Culture - Preliminary Gram Negative Bacillus 1 Resulted Laboratory Tests 04/25/17 03:45: White Blood Count 26.0*H, Red Blood Count 3.69L, Hemoglobin 10.2L, Hematocrit 32.4L, Mean Corpuscular Volume 88, Mean Corpuscular Hemoglobin 27.6, Mean Corpuscular Hemoglobin Concent 31.3L, Red Cell Distribution Width 17.9H, Platelet Count 398, Mean Platelet Volume 6.1L, Neutrophils (%) (Auto) , Lymphocytes (%) (Auto) , Monocytes (%) (Auto) , Eosinophils (%) (Auto) , Basophils (%) (Auto) , Differential Total Cells Counted 100, Neutrophils % ( Manual) 68, Lymphocytes % (Manual) 11L, Monocytes % (Manual) 7, Eosinophils % ( Manual) 3, Basophils % (Manual) 0, Band Neutrophils 11H, Platelet Estimate Adequate, Platelet Morphology Normal, Anisocytosis 1+, Evie Cells 1+, Sodium Level 133L, Potassium Level 3.9, Chloride Level 98, Carbon Dioxide Level 20, Anion Gap 15, Blood Urea Nitrogen 14, Creatinine 0.7, Estimat Glomerular Filtration Rate > 60, Glucose Level 62L, Calcium Level 8.7, Total Bilirubin 0.2 , Aspartate Amino Transf (AST/SGOT) 15, Alanine Aminotransferase (ALT/SGPT) 11, Alkaline Phosphatase 63, Pro-B-Type Natriuretic Peptide 553H, Total Protein 6.4L , Albumin 2.9L, Globulin 3.5, Albumin/Globulin Ratio 0.8L Current Medications Medications (Trade) Dose Ordered Sig/Wanda Route PRN Reason Start Time Stop Time Status Last Admin Dose Admin Acetaminophen (Tylenol) 650 mg Q4H PRN ORAL T>100.5 04/14/17 20:15 05/14/17 20:14 04/23/17 19:50 Acetaminophen (Tylenol) 650 mg Q4H PRN RECTAL Mild Pain (Pain Scale 1-3) 04/14/17 20:13 05/14/17 19:44 Al Hydroxide/Mg Hydroxide (Mylanta II) 30 ml Q6H PRN GT dyspepsia 04/23/17 16:00 05/14/17 20:14 Amlodipine Besylate (Norvasc) 2.5 mg DAILY GT 04/24/17 09:00 05/15/17 08:59 04/25/17 10:11 Clonidine HCl (Catapres) 0.1 mg Q6H PRN GT sbp above 160 04/23/17 16:00 05/14/17 21:14 Colistimethate Sodium 75 mg 75 mg Q12HR@10,22 INH 04/24/17 11:00 05/01/17 10:59 04/24/17 23:09 Dextrose (Dextrose 50%) STAT PRN IV Hypoglycemia 04/14/17 20:15 05/14/17 20:14 Diphenhydramine HCl (Benadryl) 25 mg Q6H PRN ORAL Itching/Pruritis 04/14/17 20:15 05/14/17 20:14 04/25/17 05:29 Lansoprazole (Prevacid) 30 mg DAILY GT 04/20/17 09:00 05/20/17 08:59 04/25/17 10:11 Levothyroxine Sodium (Synthroid) 50 mcg DAILY GT 04/15/17 09:00 05/15/17 08:59 04/25/17 10:14 Meropenem/Sodium Chloride (Merrem/Sodium Chloride) 110 ml @ 220 mls/hr Q8HR IVPB 04/24/17 11:00 04/29/17 10:59 04/25/17 05:11 Metoclopramide HCl (Reglan) 5 mg QID GT 04/23/17 18:00 05/23/17 12:59 04/25/17 10:14 Nitroglycerin (Ntg) 0.4 mg Q5M X 3 DOSES PRN SL Prn Chest Pain 04/14/17 20:15 05/14/17 20:14 Ondansetron HCl (Zofran) 4 mg Q6H PRN IVP Nausea & Vomiting 04/14/17 20:15 05/14/17 20:14 04/23/17 09:14 Polyethylene Glycol (Miralax) 17 gm HSPRN PRN GT Constipation 04/23/17 16:00 05/14/17 20:59 Sodium Chloride (Sodium Chloride 1000ml bag) 1,000 ml @ 100 mls/hr Q10H IV 04/14/17 20:00 05/14/17 19:59 04/25/17 05:11 Sucralfate (Carafate) 1 gm FOUR TIMES A DAY GT 04/14/17 21:00 05/14/17 20:59 04/25/17 10:11 MIKAYLA WILLOUGHBY Apr 25, 2017 11:14
[2017-04-25] MEDS: Colistin for inhalation INH SCH ×2 (11:25→21:06)
[2017-04-25 12:00] VITALS: BP 128/68
--- NOTE | 2017-04-25 12:14 | Diagnostic Imaging Report ---
Indication: DYSPNEA Technique: One view of the chest Comparison: 04/23/2017 Findings: There is less optimal inspiration with atelectasis in the right infrahilar region. Lungs and pleural space are otherwise clear. The heart size is normal. No other significant change Impression: Right infrahilar atelectasis. No acute process otherwise
[2017-04-25 16:18] VITALS: BP 119/67
--- NOTE | 2017-04-25 18:35 | Infectious Diseases Prog Note ---
Assessment/Plan Assessment/Plan ASSESSMENT: 66 y/o vent/trach dependent [facility] resident, h/o MDRO, admitted with UGIB and a RLL pneumonia and low grade Tea tropicalis UTI. Leukocytosis had resolved with empiric IV vanc/cefepime/flagyl along with fluconazole, but course complicated by peripheral eosinophilia (since resolved) and rash, now with recurrence of leukocytosis for 36 hrs for which he is now on D#1 of empiric inhaled colistin twice daily and IV meropenem. Sepsis, recurrence of leukocytosis Rash, eosinophilia--resolving RLL pneumonia, VAP. some component of volume overload on f/u CXR (04/23 s/p D#8 IV vancomycin, cefepime, flagyl) Tea troipcalis UTI (04/23 s/p D#7 fluconazole h/o severe leukocytosis w/ left shift on admission, improved from 31.2 down to 13 initially fever--resolved h/o recurrent aspiration pna/HCAP h/o GGS, MDR-ACB, KPC-Klebsiella pneumoniae, P. stuartii h/o recurrent UTI --h/o CRE-K. pneumoniae, M. morganii, P. mirabilis, ESBL(+) K. 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 G tube replaced 04/15.. Objective Vital Signs Last 24 Hour Vital Signs Date Time Temp Pulse Resp B/P Pulse Ox O2 Delivery O2 Flow Rate FiO2 04/25/17 17:00 80 22 35 04/25/17 16:18 98.1 80 19 119/67 100 Mechanical Ventilator 35 04/25/17 15:45 85 20 35 04/25/17 15:36 35 04/25/17 15:36 81 04/25/17 12:38 83 23 35 04/25/17 12:07 35 04/25/17 12:07 79 04/25/17 12:00 84 04/25/17 12:00 98.0 82 14 128/68 99 Mechanical Ventilator 35 04/25/17 11:35 88 20 100 Mechanical Ventilator 35 04/25/17 11:27 84 14 99 Mechanical Ventilator 35 04/25/17 11:27 35 04/25/17 11:26 82 20 35 04/25/17 10:11 85 100/57 04/25/17 08:42 85 21 35 04/25/17 08:00 35 04/25/17 08:00 85 04/25/17 08:00 98.4 82 20 100/57 100 Mechanical Ventilator 35 04/25/17 07:39 82 20 35 04/25/17 05:26 79 17 35 04/25/17 04:00 35 04/25/17 04:00 99.8 91 23 115/54 100 Mechanical Ventilator 35 04/25/17 03:40 95 04/25/17 03:18 88 21 35 04/25/17 00:39 92 20 35 04/25/17 00:00 98.5 85 18 128/72 98 Mechanical Ventilator 35 04/25/17 00:00 94 04/25/17 00:00 35 04/24/17 23:12 85 16 35 04/24/17 22:15 90 20 100 Mechanical Ventilator 35 04/24/17 22:00 87 19 100 Mechanical Ventilator 35 04/24/17 22:00 35 04/24/17 21:28 89 17 35 04/24/17 20:00 98.9 88 20 121/70 98 Mechanical Ventilator 04/24/17 20:00 35 04/24/17 19:56 90 04/24/17 19:30 98 29 35 Height (Feet): 5 Height (Inches): 6.00 Weight (Pounds): 142 Objective General Appearance: cachetic HEENT: status post trach Respiratory/Chest: lungs clear, other - on ventilator Cardiovascular: normal rate Abdomen: soft, non tender, other - GT feeding Extremities: other - contracted Skin: rash Neurologic/Psychiatric: other - opens eyes Microbiology Date/Time Source Procedure Growth Status 04/24/17 10:15 Blood Blood Culture - Preliminary Resulted 04/24/17 08:20 Sputum Induced Gram Stain - Final Resulted 04/24/17 08:20 Sputum Culture - Preliminary Gram Negative Bacillus 1 Resulted Laboratory Tests Test 04/25/17 03:45 White Blood Count 26.0 K/UL (4.8-10.8) *H Red Blood Count 3.69 M/UL (4.70-6.10) L Hemoglobin 10.2 G/DL (14.2-18.0) L Hematocrit 32.4 % (42.0-52.0) L Mean Corpuscular Volume 88 FL (80-99) Mean Corpuscular Hemoglobin 27.6 PG (27.0-31.0) Mean Corpuscular Hemoglobin Concent 31.3 G/DL (32.0-36.0) L Red Cell Distribution Width 17.9 % (11.6-14.8) H Platelet Count 398 K/UL (150-450) Mean Platelet Volume 6.1 FL (6.5-10.1) L Neutrophils (%) (Auto) % (45.0-75.0) Lymphocytes (%) (Auto) % (20.0-45.0) Monocytes (%) (Auto) % (1.0-10.0) Eosinophils (%) (Auto) % (0.0-3.0) Basophils (%) (Auto) % (0.0-2.0) Differential Total Cells Counted 100 Neutrophils % (Manual) 68 % (45-75) Lymphocytes % (Manual) 11 % (20-45) L Monocytes % (Manual) 7 % (1-10) Eosinophils % (Manual) 3 % (0-3) Basophils % (Manual) 0 % (0-2) Band Neutrophils 11 % (0-8) H Platelet Estimate Adequate Platelet Morphology Normal Anisocytosis 1+ [place] Cells 1+ Sodium Level 133 mEQ/L (135-145) L Potassium Level 3.9 mEQ/L (3.4-4.9) Chloride Level 98 mEQ/L (98-107) Carbon Dioxide Level 20 mEQ/L (20-30) Anion Gap 15 (5-15) Blood Urea Nitrogen 14 mg/dL (7-23) Creatinine 0.7 mg/dL (0.7-1.2) Estimat Glomerular Filtration Rate > 60 mL/min (>60) Glucose Level 62 mg/dL (74-106) L Calcium Level 8.7 mg/dL (8.6-10.2) Total Bilirubin 0.2 mg/dL (0.0-1.2) Aspartate Amino Transf (AST/SGOT) 15 U/L (5-40) Alanine Aminotransferase (ALT/SGPT) 11 U/L (3-41) Alkaline Phosphatase 63 U/L (40-129) Pro-B-Type Natriuretic Peptide 553 pg/mL (0-125) H Total Protein 6.4 g/dL (6.6-8.7) L Albumin 2.9 g/dL (3.5-5.2) L Globulin 3.5 g/dL Albumin/Globulin Ratio 0.8 (1.0-2.7) L Current Medications Medications (Trade) Dose Ordered Sig/Wanda Route PRN Reason Start Time Stop Time Status Last Admin Dose Admin Acetaminophen (Tylenol) 650 mg Q4H PRN ORAL T>100.5 04/14/17 20:15 05/14/17 20:14 04/23/17 19:50 Acetaminophen (Tylenol) 650 mg Q4H PRN RECTAL Mild Pain (Pain Scale 1-3) 04/14/17 20:13 05/14/17 19:44 Al Hydroxide/Mg Hydroxide (Mylanta II) 30 ml Q6H PRN GT dyspepsia 04/23/17 16:00 05/14/17 20:14 Amlodipine Besylate (Norvasc) 2.5 mg DAILY GT 04/24/17 09:00 05/15/17 08:59 04/25/17 10:11 Clonidine HCl (Catapres) 0.1 mg Q6H PRN GT sbp above 160 04/23/17 16:00 05/14/17 21:14 Colistimethate Sodium 75 mg 75 mg Q12HR@10,22 INH 04/24/17 11:00 8/22/17 10:59 04/25/17 11:25 Dextrose (Dextrose 50%) STAT PRN IV Hypoglycemia 04/14/17 20:15 05/14/17 20:14 Diphenhydramine HCl (Benadryl) 25 mg Q6H PRN ORAL Itching/Pruritis 04/14/17 20:15 05/14/17 20:14 04/25/17 05:29 Famotidine (Pepcid I.v.) 20 mg Q12HR IVP 04/25/17 21:00 05/25/17 20:59 Levothyroxine Sodium (Synthroid) 50 mcg DAILY GT 04/15/17 09:00 05/15/17 08:59 04/25/17 10:14 Meropenem/Sodium Chloride (Merrem/Sodium Chloride) 110 ml @ 220 mls/hr Q8HR IVPB 04/24/17 11:00 04/29/17 10:59 04/25/17 13:33 Metoclopramide HCl (Reglan) 5 mg QID GT 04/23/17 18:00 05/23/17 12:59 04/25/17 17:45 Nitroglycerin (Ntg) 0.4 mg Q5M X 3 DOSES PRN SL Prn Chest Pain 04/14/17 20:15 05/14/17 20:14 Ondansetron HCl (Zofran) 4 mg Q6H PRN IVP Nausea & Vomiting 04/14/17 20:15 05/14/17 20:14 04/23/17 09:14 Polyethylene Glycol (Miralax) 17 gm HSPRN PRN GT Constipation 04/23/17 16:00 05/14/17 20:59 Sodium Chloride (Sodium Chloride 1000ml bag) 1,000 ml @ 100 mls/hr Q10H IV 04/14/17 20:00 05/14/17 19:59 04/25/17 16:24 Sucralfate (Carafate) 1 gm FOUR TIMES A DAY GT 04/14/17 21:00 05/14/17 20:59 04/25/17 17:45 Donato Perez M.D. Apr 25, 2017 18:35
[2017-04-25 20:00] VITALS: BP 140/61
[2017-04-25] MEDS: Famotidine 20 MG/ 2ML VIAL IVP SCH (21:23)
[2017-04-26] VITALS: BP 119/51
[2017-04-26 04:00] VITALS: BP 127/61
[2017-04-26 05:50] LABS: MEAN CORPUSCULAR HEMOGLOBIN 26.5 PG (27.0-31.0); MEAN CORPUSCULAR VOLUME 85 FL (80-99); MEAN PLATELET VOLUME 7.2 FL (6.5-10.1); PLATELET COUNT 387 K/UL (150-450); RED BLOOD COUNT 3.59 M/UL (4.70-6.10); RED CELL DISTRIBUTION WIDTH 16.9 % (11.6-14.8); WHITE BLOOD COUNT 12.7 K/UL (4.8-10.8)
[2017-04-26] MEDS: Meropenem 1gm/NS 110ml IVPB SCH ×6 (06:11→21:43)
[2017-04-26 06:36] LABS: ANION GAP 8 (5-15); CALCIUM 8.4 mg/dL (8.6-10.2); CARBON DIOXIDE 25 mEQ/L (20-30); CHLORIDE 103 mEQ/L (98-107); CREATININE 0.6 mg/dL (0.7-1.2); GLOMERULAR FILTRATION RATE > 60 mL/min (>60); HEMOLYSIS 2; POTASSIUM 3.5 mEQ/L (3.4-4.9); SODIUM 136 mEQ/L (135-145)
[2017-04-26 08:00] VITALS: BP 144/81
[2017-04-26] MEDS: Colistin for inhalation INH SCH ×2 (09:00→21:11)
[2017-04-26] MEDS: Sucralfate 1gm tab GT SCH ×4 (09:18→20:32)
[2017-04-26] MEDS: Famotidine 20 MG/ 2ML VIAL IVP SCH ×2 (09:18→20:32)
--- NOTE | 2017-04-26 10:51 | GI Progress Note ---
Assessment/Plan Problems: (1) Gastrostomy tube dependent ICD Codes: Z93.1 - Gastrostomy tube dependent SNOMED: 183167551 (2) Hypoalbuminemia ICD Codes: E88.09 - Other disorders of plasma-protein metabolism, not elsewhere classified SNOMED: 017775787 (3) C. difficile colitis ICD Codes: A04.7 - C. difficile colitis SNOMED: 200700163 (4) Dysphagia ICD Codes: R13.10 - Dysphagia, unspecified SNOMED: 71115061, 852230120 (5) Malfunction of gastrostomy tube ICD Codes: K94.23 - Gastrostomy malfunction SNOMED: 823461514 (6) Anemia ICD Codes: D64.9 - Anemia, unspecified SNOMED: 851575556 (7) Protein-calorie malnutrition, severe ICD Codes: E43 - Unspecified severe protein-calorie malnutrition SNOMED: 386281969 (8) Esophagitis ICD Codes: K20.9 - Esophagitis SNOMED: 42895539 Status: unchanged Status Narrative Discussed with Dr. Wilson. Assessment/Plan GT malfunction >> GT replaced OB stool positive fu cdiff >> dc ppi, add H2B GTFs per dietary iron deficient, venofer stable H&H, prn transfusions carafate reflux measures low dose reglan fu labs Subjective Subjective limited Objective Last 24 Hour Vital Signs Date Time Temp Pulse Resp B/P Pulse Ox O2 Delivery O2 Flow Rate FiO2 04/26/17 09:19 98 144/81 04/26/17 09:02 99 14 100 Mechanical Ventilator 35 04/26/17 08:50 35 04/26/17 08:50 100 14 97 Mechanical Ventilator 35 04/26/17 08:44 99 23 35 04/26/17 08:24 92 04/26/17 08:00 35 04/26/17 08:00 99.2 98 20 144/81 98 Mechanical Ventilator 35 04/26/17 06:54 99 21 35 04/26/17 04:53 85 21 35 04/26/17 04:00 88 04/26/17 04:00 98.2 84 21 127/61 100 Mechanical Ventilator 35 04/26/17 04:00 35 04/26/17 03:16 94 30 35 04/26/17 00:35 82 20 35 04/26/17 00:00 97.8 79 20 119/51 100 Mechanical Ventilator 35 04/26/17 00:00 35 04/26/17 00:00 74 04/25/17 23:25 85 21 35 04/25/17 21:20 74 14 100 Mechanical Ventilator 35 04/25/17 21:05 35 04/25/17 21:04 79 17 35 04/25/17 21:04 79 17 100 Mechanical Ventilator 35 04/25/17 20:00 97.5 75 16 140/61 100 Mechanical Ventilator 35 04/25/17 20:00 35 04/25/17 20:00 78 04/25/17 19:02 84 23 35 04/25/17 17:00 80 22 35 04/25/17 16:18 98.1 80 19 119/67 100 Mechanical Ventilator 35 04/25/17 15:45 85 20 35 04/25/17 15:36 35 04/25/17 15:36 81 04/25/17 12:38 83 23 35 04/25/17 12:07 35 04/25/17 12:07 79 04/25/17 12:00 84 04/25/17 12:00 98.0 82 14 128/68 99 Mechanical Ventilator 35 04/25/17 11:35 88 20 100 Mechanical Ventilator 35 04/25/17 11:27 84 14 99 Mechanical Ventilator 35 04/25/17 11:27 35 04/25/17 11:26 82 20 35 Intake and Output 04/25/17 04/26/17 19:00 07:00 Intake Total 2170 ml 2280 ml Output Total 950 ml 800 ml Balance 1220 ml 1480 ml Free Water 300 ml 100 ml IV Total 1210 ml 1520 ml Tube Feeding 660 ml 660 ml Output Urine Total 950 ml 800 ml # Bowel Movements 1 1 Laboratory Tests Test 04/26/17 04:45 White Blood Count 12.7 K/UL (4.8-10.8) #H Red Blood Count 3.59 M/UL (4.70-6.10) L Hemoglobin 9.5 G/DL (14.2-18.0) L Hematocrit 30.6 % (42.0-52.0) L Mean Corpuscular Volume 85 FL (80-99) Mean Corpuscular Hemoglobin 26.5 PG (27.0-31.0) L Mean Corpuscular Hemoglobin Concent 31.0 G/DL (32.0-36.0) L Red Cell Distribution Width 16.9 % (11.6-14.8) H Platelet Count 387 K/UL (150-450) Mean Platelet Volume 7.2 FL (6.5-10.1) Neutrophils (%) (Auto) % (45.0-75.0) Lymphocytes (%) (Auto) % (20.0-45.0) Monocytes (%) (Auto) % (1.0-10.0) Eosinophils (%) (Auto) % (0.0-3.0) Basophils (%) (Auto) % (0.0-2.0) Sodium Level 136 mEQ/L (135-145) Potassium Level 3.5 mEQ/L (3.4-4.9) Chloride Level 103 mEQ/L (98-107) Carbon Dioxide Level 25 mEQ/L (20-30) Anion Gap 8 (5-15) Blood Urea Nitrogen 12 mg/dL (7-23) Creatinine 0.6 mg/dL (0.7-1.2) L Estimat Glomerular Filtration Rate > 60 mL/min (>60) Glucose Level 129 mg/dL (74-106) H Calcium Level 8.4 mg/dL (8.6-10.2) L Height (Feet): 5 Height (Inches): 6.00 Weight (Pounds): 141 General Appearance: no apparent distress Cardiovascular: normal rate Respiratory/Chest: normal breath sounds, no respiratory distress, other - mech vent Abdominal Exam: GT site - c/d/i Objective emesis per RN report yesterday, none reported today Arabella Quesada N.P. Apr 26, 2017 10:51
--- NOTE | 2017-04-26 10:53 | Pulmonology Progress Note ---
Assessment/Plan Problems: (1) Respiratory failure, nuaux-co-awpnfss (2) Sepsis (3) Aspiration pneumonia (4) UGIB (upper gastrointestinal bleed) (5) Malfunction of gastrostomy tube (6) Protein-calorie malnutrition, severe Respiratory: monitor respiratory rate, adjust FIO2 Cardiac: continue to monitor HR/BP Renal: F/U I&O, increase IV fluid, decrease IV fluid Infectious Disease: check cultures, continue antibiotics, other - on meropenem and colsitin Gastrointestinal: continue feedings/current rate, hold feedings Endocrine: monitor blood sugar Neurologic: PRN Ativan, PRN Morphine Affect: PRN ativan Prophylaxis: Heparin 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, 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 with: nurses, consultants, showcase maker, other - dc in am to Snf if continues to improve Subjective ROS Limited/Unobtainable: No Constitutional: Reports: no symptoms HEENT: Repors: no symptoms Respiratory: Reports: no symptoms Allergies: Coded Allergies: NO KNOWN DRUG ALLERGIES (Verified Allergy, Unknown, 09/11/16) Objective Last 24 Hour Vital Signs Date Time Temp Pulse Resp B/P Pulse Ox O2 Delivery O2 Flow Rate FiO2 04/26/17 09:19 98 144/81 04/26/17 09:02 99 14 100 Mechanical Ventilator 35 04/26/17 08:50 35 04/26/17 08:50 100 14 97 Mechanical Ventilator 35 04/26/17 08:44 99 23 35 04/26/17 08:24 92 04/26/17 08:00 35 04/26/17 08:00 99.2 98 20 144/81 98 Mechanical Ventilator 35 04/26/17 06:54 99 21 35 04/26/17 04:53 85 21 35 04/26/17 04:00 88 04/26/17 04:00 98.2 84 21 127/61 100 Mechanical Ventilator 35 04/26/17 04:00 35 04/26/17 03:16 94 30 35 04/26/17 00:35 82 20 35 04/26/17 00:00 97.8 79 20 119/51 100 Mechanical Ventilator 35 04/26/17 00:00 35 04/26/17 00:00 74 04/25/17 23:25 85 21 35 04/25/17 21:20 74 14 100 Mechanical Ventilator 35 04/25/17 21:05 35 04/25/17 21:04 79 17 35 04/25/17 21:04 79 17 100 Mechanical Ventilator 35 04/25/17 20:00 97.5 75 16 140/61 100 Mechanical Ventilator 35 04/25/17 20:00 35 04/25/17 20:00 78 04/25/17 19:02 84 23 35 04/25/17 17:00 80 22 35 04/25/17 16:18 98.1 80 19 119/67 100 Mechanical Ventilator 35 04/25/17 15:45 85 20 35 04/25/17 15:36 35 04/25/17 15:36 81 04/25/17 12:38 83 23 35 04/25/17 12:07 35 04/25/17 12:07 79 04/25/17 12:00 84 04/25/17 12:00 98.0 82 14 128/68 99 Mechanical Ventilator 35 04/25/17 11:35 88 20 100 Mechanical Ventilator 35 04/25/17 11:27 84 14 99 Mechanical Ventilator 35 04/25/17 11:27 35 04/25/17 11:26 82 20 35 Intake and Output 04/25/17 04/26/17 19:00 07:00 Intake Total 2170 ml 2280 ml Output Total 950 ml 800 ml Balance 1220 ml 1480 ml Free Water 300 ml 100 ml IV Total 1210 ml 1520 ml Tube Feeding 660 ml 660 ml Output Urine Total 950 ml 800 ml # Bowel Movements 1 1 Objective General Appearance: cachetic HEENT: normocephalic, atraumatic Respiratory/Chest: chest wall non-tender, lungs clear Cardiovascular: normal peripheral pulses, normal rate Abdomen: normal bowel sounds, soft, non tender Genitourinary: normal external genitalia Extremities: no clubbing Skin: no rash, no lesions, no ulcers Microbiology Date/Time Source Procedure Growth Status 04/24/17 10:25 Blood Blood Culture - Preliminary NO GROWTH AFTER 24 HOURS Resulted 04/24/17 10:15 Blood Blood Culture - Preliminary Staphylococcus Sp Coag Neg Resulted 04/24/17 08:20 Sputum Induced Gram Stain - Final Resulted 04/24/17 08:20 Sputum Culture - Preliminary Gram Negative Bacillus 1 Gram Negative Bacillus 2 Gram Negative Bacillus 3 Resulted Laboratory Tests 04/26/17 04:45: White Blood Count 12.7#H, Red Blood Count 3.59L, Hemoglobin 9.5L, Hematocrit 30.6L, Mean Corpuscular Volume 85, Mean Corpuscular Hemoglobin 26.5L, Mean Corpuscular Hemoglobin Concent 31.0L, Red Cell Distribution Width 16.9H, Platelet Count 387, Mean Platelet Volume 7.2, Neutrophils (%) (Auto) , Lymphocytes (%) (Auto) , Monocytes (%) (Auto) , Eosinophils (%) (Auto) , Basophils (%) (Auto) , Sodium Level 136, Potassium Level 3.5, Chloride Level 103 , Carbon Dioxide Level 25, Anion Gap 8, Blood Urea Nitrogen 12, Creatinine 0.6L , Estimat Glomerular Filtration Rate > 60, Glucose Level 129H, Calcium Level 8.4L Current Medications Medications (Trade) Dose Ordered Sig/Wanda Route PRN Reason Start Time Stop Time Status Last Admin Dose Admin Acetaminophen (Tylenol) 650 mg Q4H PRN ORAL T>100.5 04/14/17 20:15 05/14/17 20:14 04/23/17 19:50 Acetaminophen (Tylenol) 650 mg Q4H PRN RECTAL Mild Pain (Pain Scale 1-3) 04/14/17 20:13 05/14/17 19:44 Al Hydroxide/Mg Hydroxide (Mylanta II) 30 ml Q6H PRN GT dyspepsia 04/23/17 16:00 05/14/17 20:14 Amlodipine Besylate (Norvasc) 2.5 mg DAILY GT 04/24/17 09:00 05/15/17 08:59 04/26/17 09:19 Clonidine HCl (Catapres) 0.1 mg Q6H PRN GT sbp above 160 04/23/17 16:00 05/14/17 21:14 Colistimethate Sodium 75 mg 75 mg Q12HR@10,22 INH 04/24/17 11:00 05/01/17 10:59 04/26/17 09:00 Dextrose (Dextrose 50%) STAT PRN IV Hypoglycemia 04/14/17 20:15 05/14/17 20:14 Diphenhydramine HCl (Benadryl) 25 mg Q6H PRN ORAL Itching/Pruritis 04/14/17 20:15 05/14/17 20:14 04/26/17 09:18 Famotidine (Pepcid I.v.) 20 mg Q12HR IVP 04/25/17 21:00 05/25/17 20:59 04/26/17 09:18 Levothyroxine Sodium (Synthroid) 50 mcg DAILY GT 04/15/17 09:00 05/15/17 08:59 04/26/17 09:19 Meropenem/Sodium Chloride (Merrem/Sodium Chloride) 110 ml @ 220 mls/hr Q8HR IVPB 04/24/17 11:00 04/29/17 10:59 04/26/17 06:11 Metoclopramide HCl (Reglan) 5 mg QID GT 04/23/17 18:00 05/23/17 12:59 04/26/17 09:20 Nitroglycerin (Ntg) 0.4 mg Q5M X 3 DOSES PRN SL Prn Chest Pain 04/14/17 20:15 05/14/17 20:14 Ondansetron HCl (Zofran) 4 mg Q6H PRN IVP Nausea & Vomiting 04/14/17 20:15 05/14/17 20:14 04/23/17 09:14 Polyethylene Glycol (Miralax) 17 gm HSPRN PRN GT Constipation 04/23/17 16:00 05/14/17 20:59 Sodium Chloride (Sodium Chloride 1000ml bag) 1,000 ml @ 100 mls/hr Q10H IV 04/14/17 20:00 05/14/17 19:59 04/26/17 02:06 Sucralfate (Carafate) 1 gm FOUR TIMES A DAY GT 04/14/17 21:00 05/14/17 20:59 04/26/17 09:18 MIKAYLA WILLOUGHBY Apr 26, 2017 10:53
[2017-04-26 12:05] VITALS: BP 103/78
[2017-04-26] MEDS ORDERED: NS 275ml ONE (15:53)
[2017-04-26] MEDS ORDERED: Tubing IV Secondary IV ONE (15:53)
[2017-04-26 16:00] VITALS: BP 123/77
--- NOTE | 2017-04-26 16:03 | Infectious Diseases Prog Note ---
Assessment/Plan Assessment/Plan ASSESSMENT: 66 y/o vent/trach dependent [facility] resident, h/o MDRO, admitted with UGIB and a RLL pneumonia and low grade Tea tropicalis UTI. Leukocytosis had resolved with empiric IV vanc/cefepime/flagyl along with fluconazole, but course complicated by peripheral eosinophilia (since resolved) and rash (slowly resolving), now with recurrence of leukocytosis for 36 hrs for which he is now on D#2 of empiric inhaled colistin twice daily and IV meropenem , with WBC today declined from 26 to 12. one of 4 blood cx bottles from 04/24 growing cons, but suspect this is contaminant based on improvement w/o vancomycin and wouldn't repeat blood cx at this time unless recurrence of fevers of leukocytosis. Sepsis, recurrence of leukocytosis, now resolving Rash, eosinophilia--resolving RLL pneumonia, VAP. some component of volume overload on f/u CXR. Prior MDR Klebsiella and ACB (04/20 sputum cx), repeat sputum cx from 04/24 pending (04/23 s/p D#8 IV vancomycin, cefepime, flagyl) CoNS 1 of 4 blood cx bottles from 04/24 positive, likely contaminant Tea troipcalis UTI (04/23 s/p D#7 fluconazole) fever--resolved h/o recurrent aspiration pna/HCAP h/o GGS, MDR-ACB, KPC-Klebsiella pneumoniae, P. stuartii h/o recurrent UTI --h/o CRE-K. pneumoniae, M. morganii, P. mirabilis, ESBL(+) K. 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 G tube replaced 04/15.. Objective Vital Signs Last 24 Hour Vital Signs Date Time Temp Pulse Resp B/P Pulse Ox O2 Delivery O2 Flow Rate FiO2 04/26/17 15:00 85 17 35 04/26/17 12:50 95 21 35 04/26/17 12:05 99.0 103 22 103/78 98 Mechanical Ventilator 35 04/26/17 12:01 98 04/26/17 12:00 35 04/26/17 11:06 95 25 35 04/26/17 09:19 98 144/81 04/26/17 09:02 99 14 100 Mechanical Ventilator 35 04/26/17 08:50 35 04/26/17 08:50 100 14 97 Mechanical Ventilator 35 04/26/17 08:44 99 23 35 04/26/17 08:24 92 04/26/17 08:00 35 04/26/17 08:00 99.2 98 20 144/81 98 Mechanical Ventilator 35 04/26/17 06:54 99 21 35 04/26/17 04:53 85 21 35 04/26/17 04:00 88 04/26/17 04:00 98.2 84 21 127/61 100 Mechanical Ventilator 35 04/26/17 04:00 35 04/26/17 03:16 94 30 35 04/26/17 00:35 82 20 35 04/26/17 00:00 97.8 79 20 119/51 100 Mechanical Ventilator 35 04/26/17 00:00 35 04/26/17 00:00 74 04/25/17 23:25 85 21 35 04/25/17 21:20 74 14 100 Mechanical Ventilator 35 04/25/17 21:05 35 04/25/17 21:04 79 17 35 04/25/17 21:04 79 17 100 Mechanical Ventilator 35 04/25/17 20:00 97.5 75 16 140/61 100 Mechanical Ventilator 35 04/25/17 20:00 35 04/25/17 20:00 78 04/25/17 19:02 84 23 35 04/25/17 17:00 80 22 35 04/25/17 16:18 98.1 80 19 119/67 100 Mechanical Ventilator 35 Height (Feet): 5 Height (Inches): 6.00 Weight (Pounds): 141 Objective General Appearance: cachetic HEENT: status post trach Respiratory/Chest: lungs clear, other - on ventilator Cardiovascular: normal rate Abdomen: soft, non tender, other - GT feeding Extremities: other - contracted. no CVC in place. L foot PIV c/d/i. Skin: rash to trunk and BUE, resolving Neurologic/Psychiatric: other - opens eyes Microbiology Date/Time Source Procedure Growth Status 04/24/17 10:25 Blood Blood Culture - Preliminary NO GROWTH AFTER 24 HOURS Resulted 04/24/17 10:15 Blood Blood Culture - Preliminary Staphylococcus Sp Coag Neg Resulted 04/24/17 08:20 Sputum Induced Gram Stain - Final Resulted 04/24/17 08:20 Sputum Culture - Preliminary Gram Negative Bacillus 1 Gram Negative Bacillus 2 Gram Negative Bacillus 3 Resulted 04/25/17 18:00 Stool Clostridium difficile Toxin Assay - Final Complete Laboratory Tests Test 04/26/17 04:45 White Blood Count 12.7 K/UL (4.8-10.8) #H Red Blood Count 3.59 M/UL (4.70-6.10) L Hemoglobin 9.5 G/DL (14.2-18.0) L Hematocrit 30.6 % (42.0-52.0) L Mean Corpuscular Volume 85 FL (80-99) Mean Corpuscular Hemoglobin 26.5 PG (27.0-31.0) L Mean Corpuscular Hemoglobin Concent 31.0 G/DL (32.0-36.0) L Red Cell Distribution Width 16.9 % (11.6-14.8) H Platelet Count 387 K/UL (150-450) Mean Platelet Volume 7.2 FL (6.5-10.1) Neutrophils (%) (Auto) % (45.0-75.0) Lymphocytes (%) (Auto) % (20.0-45.0) Monocytes (%) (Auto) % (1.0-10.0) Eosinophils (%) (Auto) % (0.0-3.0) Basophils (%) (Auto) % (0.0-2.0) Sodium Level 136 mEQ/L (135-145) Potassium Level 3.5 mEQ/L (3.4-4.9) Chloride Level 103 mEQ/L (98-107) Carbon Dioxide Level 25 mEQ/L (20-30) Anion Gap 8 (5-15) Blood Urea Nitrogen 12 mg/dL (7-23) Creatinine 0.6 mg/dL (0.7-1.2) L Estimat Glomerular Filtration Rate > 60 mL/min (>60) Glucose Level 129 mg/dL (74-106) H Calcium Level 8.4 mg/dL (8.6-10.2) L Current Medications Medications (Trade) Dose Ordered Sig/Wanda Route PRN Reason Start Time Stop Time Status Last Admin Dose Admin Acetaminophen (Tylenol) 650 mg Q4H PRN ORAL T>100.5 04/14/17 20:15 05/14/17 20:14 04/23/17 19:50 Acetaminophen (Tylenol) 650 mg Q4H PRN RECTAL Mild Pain (Pain Scale 1-3) 04/14/17 20:13 05/14/17 19:44 Al Hydroxide/Mg Hydroxide (Mylanta II) 30 ml Q6H PRN GT dyspepsia 04/23/17 16:00 05/14/17 20:14 Amlodipine Besylate (Norvasc) 2.5 mg DAILY GT 04/24/17 09:00 05/15/17 08:59 04/26/17 09:19 Clonidine HCl (Catapres) 0.1 mg Q6H PRN GT sbp above 160 04/23/17 16:00 05/14/17 21:14 Colistimethate Sodium 75 mg 75 mg Q12HR@10,22 INH 04/24/17 11:00 05/01/17 10:59 04/26/17 09:00 Dextrose (Dextrose 50%) STAT PRN IV Hypoglycemia 04/14/17 20:15 05/14/17 20:14 Diphenhydramine HCl (Benadryl) 25 mg Q6H PRN ORAL Itching/Pruritis 04/14/17 20:15 05/14/17 20:14 04/26/17 09:18 Famotidine (Pepcid I.v.) 20 mg Q12HR IVP 04/25/17 21:00 05/25/17 20:59 04/26/17 09:18 Levothyroxine Sodium (Synthroid) 50 mcg DAILY GT 04/15/17 09:00 05/15/17 08:59 04/26/17 09:19 Meropenem/Sodium Chloride (Merrem/Sodium Chloride) 110 ml @ 220 mls/hr Q8HR IVPB 04/24/17 11:00 04/29/17 10:59 04/26/17 13:43 Metoclopramide HCl (Reglan) 5 mg QID GT 04/23/17 18:00 05/23/17 12:59 04/26/17 13:47 Nitroglycerin (Ntg) 0.4 mg Q5M X 3 DOSES PRN SL Prn Chest Pain 04/14/17 20:15 05/14/17 20:14 Ondansetron HCl (Zofran) 4 mg Q6H PRN IVP Nausea & Vomiting 04/14/17 20:15 05/14/17 20:14 04/23/17 09:14 Polyethylene Glycol (Miralax) 17 gm HSPRN PRN GT Constipation 04/23/17 16:00 05/14/17 20:59 Sodium Chloride (Sodium Chloride 1000ml bag) 1,000 ml @ 100 mls/hr Q10H IV 04/14/17 20:00 05/14/17 19:59 04/26/17 12:16 Sucralfate (Carafate) 1 gm FOUR TIMES A DAY GT 04/14/17 21:00 05/14/17 20:59 04/26/17 13:47 Donato Perez M.D. Apr 26, 2017 16:03
[2017-04-26 20:00] VITALS: BP 140/68
[2017-04-27] VITALS: BP 145/81
[2017-04-27 04:00] VITALS: BP 142/71
[2017-04-27 05:33] LABS: BASOPHILS % (AUTO) 0.6 % (0.0-2.0); EOSINOPHILS % (AUTO) 17.6 % (0.0-3.0); LYMPHOCYTES % (AUTO) 16.6 % (20.0-45.0); MEAN CORPUSCULAR HEMOGLOBIN 27.2 PG (27.0-31.0); MEAN CORPUSCULAR VOLUME 85 FL (80-99); MONOCYTES % (AUTO) 9.5 % (1.0-10.0); NEUTROPHILS % (AUTO) 55.6 % (45.0-75.0); PLATELET COUNT 374 K/UL (150-450); RED BLOOD COUNT 3.58 M/UL (4.70-6.10); RED CELL DISTRIBUTION WIDTH 16.5 % (11.6-14.8); WHITE BLOOD COUNT 13.1 K/UL (4.8-10.8)
[2017-04-27 05:44] LABS: PROTHROMBIN TIME 10.3 SEC (9.30-11.50)
[2017-04-27] MEDS: Meropenem 1gm/NS 110ml IVPB SCH ×4 (05:51→13:34)
[2017-04-27 06:01] LABS: ALANINE AMINOTRANSFERASE 10 U/L (3-41); ALBUMIN/GLOBULIN RATIO 0.6 (1.0-2.7); ANION GAP 9 (5-15); ASPARTATE AMINO TRANSFERASE 14 U/L (5-40); CALCIUM 8.7 mg/dL (8.6-10.2); CARBON DIOXIDE 26 mEQ/L (20-30); CHLORIDE 101 mEQ/L (98-107); CREATININE 0.5 mg/dL (0.7-1.2); GLOMERULAR FILTRATION RATE > 60 mL/min (>60); HEMOLYSIS 2; MAGNESIUM 1.5 mg/dL (1.7-2.5); PHOSPHORUS 1.5 mg/dL (2.5-4.8); POTASSIUM 3.7 mEQ/L (3.4-4.9); SODIUM 136 mEQ/L (135-145); TOTAL PROTEIN 6.7 g/dL (6.6-8.7)
[2017-04-27] MEDS ORDERED: Sodium Phosphate 20 MM in NS 275 ML IVPB ONE (08:00)
[2017-04-27 08:02] VITALS: BP 141/62
[2017-04-27] MEDS: Sucralfate 1gm tab GT SCH ×3 (08:04→17:35)
[2017-04-27] MEDS: Famotidine 20 MG/ 2ML VIAL IVP SCH (08:10)
--- NOTE | 2017-04-27 10:40 | GI Progress Note ---
Assessment/Plan Problems: (1) Gastrostomy tube dependent ICD Codes: Z93.1 - Gastrostomy tube dependent SNOMED: 230297660 (2) Hypoalbuminemia ICD Codes: E88.09 - Other disorders of plasma-protein metabolism, not elsewhere classified SNOMED: 009629058 (3) C. difficile colitis ICD Codes: A04.7 - C. difficile colitis SNOMED: 458942599 (4) Dysphagia ICD Codes: R13.10 - Dysphagia, unspecified SNOMED: 63687186, 413135202 (5) Malfunction of gastrostomy tube ICD Codes: K94.23 - Gastrostomy malfunction SNOMED: 810051269 (6) Anemia ICD Codes: D64.9 - Anemia, unspecified SNOMED: 011460808 (7) Protein-calorie malnutrition, severe ICD Codes: E43 - Unspecified severe protein-calorie malnutrition SNOMED: 793477684 (8) Esophagitis ICD Codes: K20.9 - Esophagitis SNOMED: 72266040 Status: stable Status Narrative Discussed with Dr. Wilson. Assessment/Plan GT malfunction >> GT replaced OB stool positive cdiff negative GTFs per dietary iron deficient, venofer stable H&H, prn transfusions ppi carafate reflux measures low dose reglan fu labs Subjective Subjective limited Objective Last 24 Hour Vital Signs Date Time Temp Pulse Resp B/P Pulse Ox O2 Delivery O2 Flow Rate FiO2 04/27/17 08:49 89 24 35 04/27/17 08:25 88 04/27/17 08:05 90 141/62 04/27/17 08:02 98.2 90 22 141/62 100 Mechanical Ventilator 35 04/27/17 08:00 35 04/27/17 07:07 93 24 35 04/27/17 05:18 83 23 35 04/27/17 04:00 106 04/27/17 04:00 97.8 81 20 142/71 97 Mechanical Ventilator 35 04/27/17 04:00 35 04/27/17 03:35 85 17 35 04/27/17 00:44 87 17 35 04/27/17 00:00 35 04/27/17 00:00 106 04/27/17 00:00 98.2 90 20 145/81 100 Mechanical Ventilator 35 04/26/17 23:35 78 20 35 04/26/17 21:26 83 20 100 Mechanical Ventilator 35 04/26/17 21:26 35 04/26/17 21:19 81 18 100 Mechanical Ventilator 35 04/26/17 20:54 78 19 35 04/26/17 20:00 97.9 80 20 140/68 100 Mechanical Ventilator 35 04/26/17 20:00 35 04/26/17 20:00 99 04/26/17 18:59 79 21 35 04/26/17 16:47 79 21 35 04/26/17 16:00 98.8 97 20 123/77 100 Mechanical Ventilator 35 04/26/17 16:00 35 04/26/17 16:00 102 04/26/17 15:00 85 17 35 04/26/17 12:50 95 21 35 04/26/17 12:05 99.0 103 22 103/78 98 Mechanical Ventilator 35 04/26/17 12:01 98 04/26/17 12:00 35 04/26/17 11:06 95 25 35 Intake and Output 04/26/17 04/27/17 19:00 07:00 Intake Total 2715 ml 1891 ml Output Total 1550 ml 2000 ml Balance 1165 ml -109 ml Free Water 300 ml 115 ml IV Total 1810 ml 1171 ml Tube Feeding 605 ml 605 ml Output Urine Total 1550 ml 2000 ml # Voids 1 # Bowel Movements 1 4 Laboratory Tests Test 04/27/17 04:00 White Blood Count 13.1 K/UL (4.8-10.8) H Red Blood Count 3.58 M/UL (4.70-6.10) L Hemoglobin 9.7 G/DL (14.2-18.0) L Hematocrit 30.4 % (42.0-52.0) L Mean Corpuscular Volume 85 FL (80-99) Mean Corpuscular Hemoglobin 27.2 PG (27.0-31.0) Mean Corpuscular Hemoglobin Concent 32.0 G/DL (32.0-36.0) Red Cell Distribution Width 16.5 % (11.6-14.8) H Platelet Count 374 K/UL (150-450) Mean Platelet Volume 7.0 FL (6.5-10.1) Neutrophils (%) (Auto) 55.6 % (45.0-75.0) Lymphocytes (%) (Auto) 16.6 % (20.0-45.0) L Monocytes (%) (Auto) 9.5 % (1.0-10.0) Eosinophils (%) (Auto) 17.6 % (0.0-3.0) H Basophils (%) (Auto) 0.6 % (0.0-2.0) Prothrombin Time 10.3 SEC (9.30-11.50) Prothromb Time International Ratio 1.0 (0.9-1.1) Activated Partial Thromboplast Time 30 SEC (23-33) Sodium Level 136 mEQ/L (135-145) Potassium Level 3.7 mEQ/L (3.4-4.9) Chloride Level 101 mEQ/L (98-107) Carbon Dioxide Level 26 mEQ/L (20-30) Anion Gap 9 (5-15) Blood Urea Nitrogen 8 mg/dL (7-23) Creatinine 0.5 mg/dL (0.7-1.2) L Estimat Glomerular Filtration Rate > 60 mL/min (>60) Glucose Level 106 mg/dL (74-106) Calcium Level 8.7 mg/dL (8.6-10.2) Phosphorus Level 1.5 mg/dL (2.5-4.8) L Magnesium Level 1.5 mg/dL (1.7-2.5) L Total Bilirubin < 0.2 mg/dL (0.0-1.2) Aspartate Amino Transf (AST/SGOT) 14 U/L (5-40) Alanine Aminotransferase (ALT/SGPT) 10 U/L (3-41) Alkaline Phosphatase 73 U/L (40-129) Total Protein 6.7 g/dL (6.6-8.7) Albumin 2.7 g/dL (3.5-5.2) L Globulin 4.0 g/dL Albumin/Globulin Ratio 0.6 (1.0-2.7) L Height (Feet): 5 Height (Inches): 6.00 Weight (Pounds): 142 General Appearance: no apparent distress, alert Cardiovascular: normal rate Respiratory/Chest: other - mech vent Abdominal Exam: GT site - c/d/i Objective emesis per RN report yesterday, none reported today Arabella Quesada N.P. Apr 27, 2017 10:40
[2017-04-27] MEDS: Colistin for inhalation INH SCH (10:49)
[2017-04-27] MEDS ORDERED: MEROPENEM-1 GM/50 ML IV (12:10)
[2017-04-27] MEDS ORDERED: COLISTIN150 MG INH (12:10)
--- NOTE | 2017-04-27 12:12 | Pulmonology Progress Note ---
Assessment/Plan Problems: (1) Respiratory failure, [id number] (2) Sepsis (3) Aspiration pneumonia (4) UGIB (upper gastrointestinal bleed) (5) Malfunction of gastrostomy tube (6) Protein-calorie malnutrition, severe Respiratory: monitor respiratory rate Cardiac: continue pressors, continue to monitor HR/BP Renal: F/U I&O Infectious Disease: check cultures, continue antibiotics Gastrointestinal: continue feedings/current rate Endocrine: monitor blood sugar, check HgA1C, continue sliding scale insulin Hematologic: transfuse if hgb<8.5 Neurologic: PRN Ativan, PRN Morphine, keep patient comfortable Affect: PRN ativan Time Spent (Minutes): 40 Notes Reviewed: cardio, 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 with: nurses, consultants, behavioral health case manager Subjective ROS Limited/Unobtainable: No Constitutional: Reports: no symptoms HEENT: Repors: no symptoms Respiratory: Reports: no symptoms Allergies: Coded Allergies: NO KNOWN DRUG ALLERGIES (Verified Allergy, Unknown, 09/11/16) Objective Last 24 Hour Vital Signs Date Time Temp Pulse Resp B/P Pulse Ox O2 Delivery O2 Flow Rate FiO2 04/27/17 11:02 97 23 100 Mechanical Ventilator 35 04/27/17 10:51 35 04/27/17 10:50 79 23 100 Mechanical Ventilator 35 04/27/17 10:47 79 23 35 04/27/17 08:49 89 24 35 04/27/17 08:25 88 04/27/17 08:05 90 141/62 04/27/17 08:02 98.2 90 22 141/62 100 Mechanical Ventilator 35 04/27/17 08:00 35 04/27/17 07:07 93 24 35 04/27/17 05:18 83 23 35 04/27/17 04:00 106 04/27/17 04:00 97.8 81 20 142/71 97 Mechanical Ventilator 35 04/27/17 04:00 35 04/27/17 03:35 85 17 35 04/27/17 00:44 87 17 35 04/27/17 00:00 35 04/27/17 00:00 106 04/27/17 00:00 98.2 90 20 145/81 100 Mechanical Ventilator 35 04/26/17 23:35 78 20 35 04/26/17 21:26 83 20 100 Mechanical Ventilator 35 04/26/17 21:26 35 04/26/17 21:19 81 18 100 Mechanical Ventilator 35 04/26/17 20:54 78 19 35 04/26/17 20:00 97.9 80 20 140/68 100 Mechanical Ventilator 35 04/26/17 20:00 35 04/26/17 20:00 99 04/26/17 18:59 79 21 35 04/26/17 16:47 79 21 35 04/26/17 16:00 98.8 97 20 123/77 100 Mechanical Ventilator 35 04/26/17 16:00 35 04/26/17 16:00 102 04/26/17 15:00 85 17 35 04/26/17 12:50 95 21 35 Intake and Output 04/26/17 04/27/17 19:00 07:00 Intake Total 2715 ml 1891 ml Output Total 1550 ml 2000 ml Balance 1165 ml -109 ml Free Water 300 ml 115 ml IV Total 1810 ml 1171 ml Tube Feeding 605 ml 605 ml Output Urine Total 1550 ml 2000 ml # Voids 1 # Bowel Movements 1 4 Objective General Appearance: cachetic HEENT: normocephalic, atraumatic Respiratory/Chest: chest wall non-tender, lungs clear Cardiovascular: normal peripheral pulses, normal rate Abdomen: normal bowel sounds, soft, non tender Genitourinary: normal external genitalia Extremities: no clubbing Skin: no rash, no lesions, no ulcers Microbiology Date/Time Source Procedure Growth Status 04/25/17 18:00 Stool Clostridium difficile Toxin Assay - Final Complete Laboratory Tests 04/27/17 04:00: White Blood Count 13.1H, Red Blood Count 3.58L, Hemoglobin 9.7L, Hematocrit 30.4L, Mean Corpuscular Volume 85, Mean Corpuscular Hemoglobin 27.2, Mean Corpuscular Hemoglobin Concent 32.0, Red Cell Distribution Width 16.5H, Platelet Count 374, Mean Platelet Volume 7.0, Neutrophils (%) (Auto) 55.6, Lymphocytes (%) (Auto) 16.6L, Monocytes (%) (Auto) 9.5, Eosinophils (%) (Auto) 17.6H, Basophils (%) (Auto) 0.6, Prothrombin Time 10.3, Prothromb Time International Ratio 1.0, Activated Partial Thromboplast Time 30, Sodium Level 136, Potassium Level 3.7, Chloride Level 101, Carbon Dioxide Level 26, Anion Gap 9, Blood Urea Nitrogen 8, Creatinine 0.5L, Estimat Glomerular Filtration Rate > 60, Glucose Level 106, Calcium Level 8.7, Phosphorus Level 1.5L, Magnesium Level 1.5L, Total Bilirubin < 0.2, Aspartate Amino Transf (AST/SGOT) 14, Alanine Aminotransferase (ALT/SGPT) 10, Alkaline Phosphatase 73, Total Protein 6.7, Albumin 2.7L, Globulin 4.0, Albumin/Globulin Ratio 0.6L Current Medications Medications (Trade) Dose Ordered Sig/Wanda Route PRN Reason Start Time Stop Time Status Last Admin Dose Admin Acetaminophen (Tylenol) 650 mg Q4H PRN ORAL T>100.5 04/14/17 20:15 05/14/17 20:14 04/23/17 19:50 Acetaminophen (Tylenol) 650 mg Q4H PRN RECTAL Mild Pain (Pain Scale 1-3) 04/14/17 20:13 05/14/17 19:44 Al Hydroxide/Mg Hydroxide (Mylanta II) 30 ml Q6H PRN GT dyspepsia 04/23/17 16:00 05/14/17 20:14 Amlodipine Besylate (Norvasc) 2.5 mg DAILY GT 04/24/17 09:00 05/15/17 08:59 04/27/17 08:05 Clonidine HCl (Catapres) 0.1 mg Q6H PRN GT sbp above 160 04/23/17 16:00 05/14/17 21:14 Colistimethate Sodium 75 mg 75 mg Q12HR@10,22 INH 04/24/17 11:00 05/01/17 10:59 04/27/17 10:49 Dextrose (Dextrose 50%) STAT PRN IV Hypoglycemia 04/14/17 20:15 05/14/17 20:14 Diphenhydramine HCl (Benadryl) 25 mg Q6H PRN ORAL Itching/Pruritis 04/14/17 20:15 05/14/17 20:14 04/27/17 08:04 Lansoprazole (Prevacid) 30 mg DAILY GT 04/27/17 12:00 05/27/17 11:59 Levothyroxine Sodium (Synthroid) 50 mcg DAILY GT 04/15/17 09:00 05/15/17 08:59 04/27/17 08:10 Meropenem/Sodium Chloride (Merrem/Sodium Chloride) 110 ml @ 220 mls/hr Q8HR IVPB 04/24/17 11:00 04/29/17 10:59 04/27/17 05:51 Metoclopramide HCl (Reglan) 5 mg QID GT 04/23/17 18:00 05/23/17 12:59 04/27/17 08:05 Nitroglycerin (Ntg) 0.4 mg Q5M X 3 DOSES PRN SL Prn Chest Pain 04/14/17 20:15 05/14/17 20:14 Ondansetron HCl (Zofran) 4 mg Q6H PRN IVP Nausea & Vomiting 04/14/17 20:15 05/14/17 20:14 04/23/17 09:14 Polyethylene Glycol (Miralax) 17 gm HSPRN PRN GT Constipation 04/23/17 16:00 05/14/17 20:59 Sodium Chloride (Sodium Chloride 1000ml bag) 1,000 ml @ 100 mls/hr Q10H IV 04/14/17 20:00 05/14/17 19:59 04/27/17 07:47 Sucralfate (Carafate) 1 gm FOUR TIMES A DAY GT 04/14/17 21:00 05/14/17 20:59 04/27/17 08:05 MIKAYLA WILLOUGHBY Apr 27, 2017 12:12
[2017-04-27 12:15] VITALS: BP 145/77
[2017-04-27 16:00] VITALS: BP 140/81
--- NOTE | 2017-04-27 16:53 | Infectious Diseases Prog Note ---
Assessment/Plan Assessment/Plan ASSESSMENT: 66 y/o vent/trach dependent long term resident, h/o MDRO, admitted with UGIB and a RLL pneumonia and low grade Tea tropicalis UTI. Leukocytosis had resolved with empiric IV vanc/cefepime/flagyl along with fluconazole, but course complicated by peripheral eosinophilia (since resolved) and rash (slowly resolving), now with recurrence of leukocytosis for 36 hrs for which he is now on D#2 of empiric inhaled colistin twice daily and IV meropenem , with WBC on 04/26 declined from 26 to 12. one of 4 blood cx bottles from growing cons, but suspect this is contaminant based on improvement w/o vancomycin and wouldn't repeat blood cx at this time unless recurrence of fevers of leukocytosis. Sepsis, recurrence of leukocytosis, now resolving Rash, eosinophilia--resolving RLL pneumonia, VAP. some component of volume overload on f/u CXR. Prior MDR Klebsiella and ACB (04/20 sputum cx), repeat sputum cx from 04/24 growing KPC, providencia, and the ACB. (04/23 s/p D#8 IV vancomycin, cefepime, flagyl) CoNS 1 of 4 blood cx bottles from 04/24 positive, likely contaminant Tea troipcalis UTI (04/23 s/p D#7 fluconazole) fever--resolved h/o recurrent aspiration pna/HCAP h/o GGS, MDR-ACB, KPC-Klebsiella pneumoniae, P. stuartii h/o recurrent UTI --h/o CRE-K. pneumoniae, M. morganii, P. mirabilis, ESBL(+) K. 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 G tube replaced 04/15.. Objective Vital Signs Last 24 Hour Vital Signs Date Time Temp Pulse Resp B/P Pulse Ox O2 Delivery O2 Flow Rate FiO2 04/27/17 16:00 98.2 92 20 140/81 100 Mechanical Ventilator 35 04/27/17 16:00 35 04/27/17 15:02 79 19 35 04/27/17 13:06 82 20 35 04/27/17 12:15 98.4 90 22 145/77 100 Mechanical Ventilator 35 04/27/17 12:00 35 04/27/17 12:00 83 04/27/17 11:02 97 23 100 Mechanical Ventilator 35 04/27/17 10:51 35 04/27/17 10:50 79 23 100 Mechanical Ventilator 35 04/27/17 10:47 79 23 35 04/27/17 08:49 89 24 35 04/27/17 08:25 88 04/27/17 08:05 90 141/62 04/27/17 08:02 98.2 90 22 141/62 100 Mechanical Ventilator 35 04/27/17 08:00 35 04/27/17 07:07 93 24 35 04/27/17 05:18 83 23 35 04/27/17 04:00 106 04/27/17 04:00 97.8 81 20 142/71 97 Mechanical Ventilator 35 04/27/17 04:00 35 04/27/17 03:35 85 17 35 04/27/17 00:44 87 17 35 04/27/17 00:00 35 04/27/17 00:00 106 04/27/17 00:00 98.2 90 20 145/81 100 Mechanical Ventilator 35 04/26/17 23:35 78 20 35 04/26/17 21:26 83 20 100 Mechanical Ventilator 35 04/26/17 21:26 35 04/26/17 21:19 81 18 100 Mechanical Ventilator 35 04/26/17 20:54 78 19 35 04/26/17 20:00 97.9 80 20 140/68 100 Mechanical Ventilator 35 04/26/17 20:00 35 04/26/17 20:00 99 04/26/17 18:59 79 21 35 Height (Feet): 5 Height (Inches): 6.00 Weight (Pounds): 142 Objective General Appearance: cachetic HEENT: status post trach Respiratory/Chest: lungs clear, other - on ventilator Cardiovascular: normal rate Abdomen: soft, non tender, other - GT feeding Extremities: other - contracted. no CVC in place. L foot PIV c/d/i. Skin: rash to trunk and BUE, resolving Neurologic/Psychiatric: other - opens eyes Microbiology Date/Time Source Procedure Growth Status 04/25/17 18:00 Stool Clostridium difficile Toxin Assay - Final Complete Laboratory Tests Test 04/27/17 04:00 White Blood Count 13.1 K/UL (4.8-10.8) H Red Blood Count 3.58 M/UL (4.70-6.10) L Hemoglobin 9.7 G/DL (14.2-18.0) L Hematocrit 30.4 % (42.0-52.0) L Mean Corpuscular Volume 85 FL (80-99) Mean Corpuscular Hemoglobin 27.2 PG (27.0-31.0) Mean Corpuscular Hemoglobin Concent 32.0 G/DL (32.0-36.0) Red Cell Distribution Width 16.5 % (11.6-14.8) H Platelet Count 374 K/UL (150-450) Mean Platelet Volume 7.0 FL (6.5-10.1) Neutrophils (%) (Auto) 55.6 % (45.0-75.0) Lymphocytes (%) (Auto) 16.6 % (20.0-45.0) L Monocytes (%) (Auto) 9.5 % (1.0-10.0) Eosinophils (%) (Auto) 17.6 % (0.0-3.0) H Basophils (%) (Auto) 0.6 % (0.0-2.0) Prothrombin Time 10.3 SEC (9.30-11.50) Prothromb Time International Ratio 1.0 (0.9-1.1) Activated Partial Thromboplast Time 30 SEC (23-33) Sodium Level 136 mEQ/L (135-145) Potassium Level 3.7 mEQ/L (3.4-4.9) Chloride Level 101 mEQ/L (98-107) Carbon Dioxide Level 26 mEQ/L (20-30) Anion Gap 9 (5-15) Blood Urea Nitrogen 8 mg/dL (7-23) Creatinine 0.5 mg/dL (0.7-1.2) L Estimat Glomerular Filtration Rate > 60 mL/min (>60) Glucose Level 106 mg/dL (74-106) Calcium Level 8.7 mg/dL (8.6-10.2) Phosphorus Level 1.5 mg/dL (2.5-4.8) L Magnesium Level 1.5 mg/dL (1.7-2.5) L Total Bilirubin < 0.2 mg/dL (0.0-1.2) Aspartate Amino Transf (AST/SGOT) 14 U/L (5-40) Alanine Aminotransferase (ALT/SGPT) 10 U/L (3-41) Alkaline Phosphatase 73 U/L (40-129) Total Protein 6.7 g/dL (6.6-8.7) Albumin 2.7 g/dL (3.5-5.2) L Globulin 4.0 g/dL Albumin/Globulin Ratio 0.6 (1.0-2.7) L Current Medications Medications (Trade) Dose Ordered Sig/Wanda Route PRN Reason Start Time Stop Time Status Last Admin Dose Admin Acetaminophen (Tylenol) 650 mg Q4H PRN ORAL T>100.5 04/14/17 20:15 05/14/17 20:14 04/23/17 19:50 Acetaminophen (Tylenol) 650 mg Q4H PRN RECTAL Mild Pain (Pain Scale 1-3) 04/14/17 20:13 05/14/17 19:44 Al Hydroxide/Mg Hydroxide (Mylanta II) 30 ml Q6H PRN GT dyspepsia 04/23/17 16:00 05/14/17 20:14 Amlodipine Besylate (Norvasc) 2.5 mg DAILY GT 04/24/17 09:00 05/15/17 08:59 04/27/17 08:05 Clonidine HCl (Catapres) 0.1 mg Q6H PRN GT sbp above 160 04/23/17 16:00 05/14/17 21:14 Colistimethate Sodium 75 mg 75 mg Q12HR@10,22 INH 04/24/17 11:00 05/01/17 10:59 04/27/17 10:49 Dextrose (Dextrose 50%) STAT PRN IV Hypoglycemia 04/14/17 20:15 05/14/17 20:14 Diphenhydramine HCl (Benadryl) 25 mg Q6H PRN ORAL Itching/Pruritis 04/14/17 20:15 05/14/17 20:14 04/27/17 08:04 Lansoprazole (Prevacid) 30 mg DAILY GT 04/27/17 12:00 05/27/17 11:59 04/27/17 12:29 Levothyroxine Sodium (Synthroid) 50 mcg DAILY GT 04/15/17 09:00 05/15/17 08:59 04/27/17 08:10 Meropenem/Sodium Chloride (Merrem/Sodium Chloride) 110 ml @ 220 mls/hr Q8HR IVPB 04/24/17 11:00 04/29/17 10:59 04/27/17 13:34 Metoclopramide HCl (Reglan) 5 mg QID GT 04/23/17 18:00 05/23/17 12:59 04/27/17 08:05 Nitroglycerin (Ntg) 0.4 mg Q5M X 3 DOSES PRN SL Prn Chest Pain 04/14/17 20:15 05/14/17 20:14 Ondansetron HCl (Zofran) 4 mg Q6H PRN IVP Nausea & Vomiting 04/14/17 20:15 05/14/17 20:14 04/23/17 09:14 Polyethylene Glycol (Miralax) 17 gm HSPRN PRN GT Constipation 04/23/17 16:00 05/14/17 20:59 Sodium Chloride (Sodium Chloride 1000ml bag) 1,000 ml @ 100 mls/hr Q10H IV 04/14/17 20:00 05/14/17 19:59 04/27/17 07:47 Sucralfate (Carafate) 1 gm FOUR TIMES A DAY GT 04/14/17 21:00 05/14/17 20:59 04/27/17 08:05 Donato Perez M.D. Apr 27, 2017 16:53
[2017-04-27] MEDS ORDERED: Tubing IV Secondary IV ONE (19:18)
[2017-04-28] MEDS ORDERED: Esomeprazole sodium 40mg vial IVP SCH (09:00)
--- NOTE | 2017-04-30 12:17 | Discharge Summary ---
Discharge Summary Hospital Course Date of Admission Apr 14, 2017 at 17:30 Date of Discharge Apr 27, 2017 at 19:19 Admitting Diagnosis upper gastro intestinal bleeed HPI Maldonado Huffman is a 66 year old male who was admitted on Apr 14, 2017 at 17:30 for Upper Gastro Intestinal Bleed Hospital Course dc summary #[id number] Discharge Medications New Medications: Meropenem-0.9% Sodium Chloride (Meropenem-0.9% NaCl 1 Gram/50) 1 Gm/50 Ml Piggyback 1 GM IV EVERY 8 HOURS for 10 Days, BAG Colistimethate Sodium (Colistin) 150 Mg Vial 75 MG INH Q12HR@10,22 for 10 Days, VIAL Continued Medications: Cran/Vitc/Mannose/Inulin/Brom (Uti-Stat Liquid) 3,875 Mg/30 Ml Liquid 3875 MG PO, ML Famotidine (Famotidine) 20 Mg Tablet 20 MG GT DAILY, #60 TAB 0 Refills Ipratropium/Albuterol Sulfate (DuoNeb 0.5-3(2.5)mg/3ml) 3 Ml Ampul.neb 3 ML HHN Q4H PRN for Shortness of Breath, #20 EA Levothyroxine Sodium* (Levothyroxine Sodium*) 50 Mcg Tablet 50 MCG GT DAILY, TAB Take in the morning on an empty stomach, at least 30 minutes before food. Sucralfate* (Carafate*) 1 Gm Tablet 1 GM GT FOUR TIMES A DAY, TAB Discharge Condition Upon Discharge: stable Discharge Disposition Patient was discharged to SNF Discharge Diagnoses: Jose (Sher)Amina NP Apr 30, 2017 12:17
--- NOTE | 2017-04-30 18:15 | Discharge Summary 2 SIG ---
DATE OF ADMISSION: 04/14/2017 DATE OF DISCHARGE: 04/27/2017 REASON FOR ADMISSION: 66-year-old male with chronic ventilator-dependent respiratory failure, tracheostomy, dysphagia, G-tube, hypertension, history of CVA, seizure disorder, hypothyroidism, dementia, chronic encephalopathy, and severe esophagitis, was sent in from halfway facility for evaluation of hematemesis for one day. Workup in ED revealed fever - 101.5 degrees, tachycardia, and tachypnea. Lactic acid was within normal limits. The patient exhibited leukocytosis, WBC- 29 and anemia, hemoglobin- 9.2 and hematocrit -27.5. Urinalysis with evidence of urinary tract infection. Chest x-ray with possible right lower lobe infiltrate. Troponin was negative. EKG revealed sinus tachycardia. The patient had a history of recurrent upper GI bleeding due to severe erosive esophagitis. (Gastrointestinal workup was done previously and revealed severe erosive esophagitis). The patient was admitted for further management. ADMITTING DIAGNOSES: 1. Sepsis. 2. Urinary tract infection with history of recurrent urinary tract infection. 3. Healthcare-associated pneumonia. 4. Upper gastrointestinal bleeding. 5. Severe erosive esophagitis. 6. Anemia. 7. Acute on chronic respiratory failure. 8. Ventilator-dependent respiratory failure, tracheostomy. 9. Dysphagia, gastrostomy tube. 10. Hypertension. 11. History of cerebrovascular accident. 12. Chronic encephalopathy. 13. Functional quadriplegia. 14. Possible severe protein-calorie malnutrition. 15. Hypothyroidism. HOSPITAL COURSE: The patient was admitted to [facility]. Ventilator support provided. Tracheostomy care provided. Pulmonary toilet provided. Baseline ABG was stable on current settings. Settings were kept as is and titrated as needed. Chest x-ray was followed up. The patient was started initially on empiric antibiotics. ID consult was requested. The patient was initially NPO, started on the IV fluids, and GI consult was requested. Urine culture revealed Tea. Blood cultures were initially negative. Followup blood culture revealed 1/4 Staph coagulase-negative, likely contaminant as per ID. Sputum culture revealed Klebsiella pneumoniae, carbapenem resistant, Providencia, and Acinetobacter baumannii complex. The patient was on the IV antibiotic and as suggested by ID, will continue additional 10 days of Colistin and meropenem at the halfway facility. Stool for C. difficile was negative. Followup chest x-ray revealed some volume overload, but improvement in resolution of pneumonia. Fever resolved. Leukocytosis trending down. Mild eczematous rash on admission was treated with Permethrin x1, however per ID was not consistent with scabies. Gastrointestinal specialist seen and evaluated the patient. Noted malfunctioning of G tube. G tube was changed by GI specialist , and patient was started on the tube feeding. Patient was able to tolerate GT feeding. No further hematemesis. Strict aspiration /reflux precautions were maintained. The patient was on PPI and Carafate. Low-dose Reglan started. The patient required transfusion of two units of packed red blood cells. The patient was on Venofer for five doses. Hemoglobin and hematocrit prior to discharge stabilized, hemoglobin -9.7 and hematocrit -30.4. Venous duplex of bilateral lower extremities was negative. TSH was within normal limits, and current dose of Levothyroxine was continued. Blood pressure was managed with the current regimen of calcium channel antoinette and was stable. Stool OB was positive. Dietary evaluation was done. Patient with generalized muscle wasting, no nutritional intake for few days due to hematemesis and then malfunctioning G tube, Dietary recommendations regarding tube feeding type, rate and supplements implemented. The patient was stable for discharge to halfway facility on antibiotic for additional 10 days. DISCHARGE DIAGNOSES: 1. Sepsis. 2. Ventilator-associated pneumonia with Klebsiella, carbapenem resistant, Acinetobacter complex, and Pseudomonas. 3. Urinary tract infection with Tea. 4. Gastrostomy tube malfunction, status post repair. 5. Upper gastrointestinal bleeding. 6. Severe erosive esophagitis. 7. Anemia, requiring blood transfusion. 8. Acute on chronic respiratory failure. 9. Ventilator-dependent respiratory failure/tracheostomy status. 10. Dysphagia, gastrostomy tube status. 11. Hypertension. 12. History of cerebrovascular accident. 13. Chronic encephalopathy. 14. Functional quadriplegia. 15. Severe protein-calorie malnutrition. 16. Hypothyroidism. DISCHARGE MEDICATIONS: See medication reconciliation list. Antibiotics to be continued for additional three days as per ID recommendation. DISCHARGE INSTRUCTIONS: The patient was discharged to subacute halfway facility. FOLLOWUP: Follow up with medical doctor and endoscope technician at the facility. Mirali Zarrabi, M.D. Amina Garcia N.P. (Vanchtein) DR: MONIQUE JOB#: [id number] CC: KENDRICK
== END 2017-04-27 19:19 | DRG 870 ==
LOC: EDBD 16:29 → EMR 17:20 → 2W 17:30 → EDBEDREQ 18:21 → 2W 23:08
DX: A41.9 Sepsis, unspecified organism (principal); J96.20 Acute and chronic respiratory failure, unspecified whether with hypoxia or hypercapnia; E43 Unspecified severe protein-calorie malnutrition; J69.0 Pneumonitis due to inhalation of food and vomit; G93.40 Encephalopathy, unspecified; Z99.11 Dependence on respirator [ventilator] status; K92.0 Hematemesis; R53.2 Functional quadriplegia; J95.851 Ventilator associated pneumonia; K92.2 Gastrointestinal hemorrhage, unspecified; B37.49 Other urogenital candidiasis; A04.7 Enterocolitis due to Clostridium difficile; K94.23 Gastrostomy malfunction; K20.8 Other esophagitis; Z68.22 Body mass index [BMI] 22.0-22.9, adult; D63.8 Anemia in other chronic diseases classified elsewhere; Z93.0 Tracheostomy status; Z93.1 Gastrostomy status; R13.10 Dysphagia, unspecified; Z86.73 Personal history of transient ischemic attack (TIA), and cerebral infarction without residual deficits; E03.9 Hypothyroidism, unspecified; R21 Rash and other nonspecific skin eruption
CPT/HCPCS: 36415; 36600; 71010; 74000; 80048; 80053; 80202; 81003; 82270; 82378; 82550; 82553; 82607; 82728; 82746; 82803; 82962; 83540; 83550; 83605; 83690; 83735; 83880; 84100; 84134; 84443; 84484; 85007; 85025; 85610; 85730; 86850; 86900; 86901; 86920; 87040; 87070; 87081; 87086; 87181; 87205; 87324; 93005; 93970; 94002; 94003; 94640; 97802; J2405; J7620

== ENCOUNTER 2017-05-31 19:02 | Inpatient (IN) | payer MEDICARE, MEDICAID ==
[~2017-05-31] VITALS: Ht 167.6 cm; Wt 62.6 kg
[~2017-05-31 19:02] MED LIST changes: +DOCUSATE SODIU100 MG GT; +FERROUS SULFAT325 MG ORAL; +MULTI-DELYN237 ML GT; +PROMOD946 ML GT; +UTI-STAT L3875 MG/31 PO; +ZINC SULFATE220 M1 ORAL
--- NOTE | 2017-05-31 19:11 | Emergency Room Report ---
History of Present Illness General Source: Patient, Medical Record, PMD Present Illness HPI [id number] sent from [facility] with abnormal labs leuks 19K. Hn/Hct 7.5/23.9 Vitals stable Trach/vent patient asymptomatic Limited HPI Per EMR VDRF/tracheostomy, dysphagia, G tube, HTN, hx of CVA, seizure disorder, hypothyroidism, dementia, chronic encephalopathy, severe esophagitis Allergies: Coded Allergies: NO KNOWN DRUG ALLERGIES (Verified Allergy, Unknown, 09/11/16) Patient History Past Medical History: other - See hpi Past Surgical History: other - Trach Pertinent Family History: none Social History: Denies: smoking, alcohol use, drug use Immunizations: UTD Reviewed Nursing Documentation: PMH: Agreed, PSxH: Agreed Nursing Documentation-PMH Hx Cardiac Problems: Yes Hx Hypertension: Yes Hx Asthma: Yes Hx COPD: No Hx Diabetes: Yes Hx Cancer: No Hx Gastrointestinal Problems: Yes - Gtube Hx Neurological Problems: Yes Hx Cerebrovascular Accident: Yes Hx Transient Ischemic Attacks: Yes Hx Dementia: Yes Hx Parkinson's Disease: Yes Hx Encephalitis: Yes Hx Seizures: Yes Hx Epilepsy: Yes Hx Paralysis: Yes - HEMIPLEGIA Hx Concentration Difficulty: Yes Hx Speech Problem: Yes Hx Aphasia: Yes Hx Weakness: Yes Hx Fatigue: Yes Hx Neurologic Surgery: No Hx Brain Shunt: No Review of Systems All Other Systems: negative except mentioned in HPI Physical Exam Sp02 EP Interpretation: reviewed, normal General Appearance: normal inspection, well appearing, no apparent distress, alert, GCS 15, non-toxic Head: normocephalic, atraumatic Eyes: bilateral eye PERRL, bilateral eye EOMI ENT: normal ENT inspection, hearing grossly normal, normal pharynx, no angioedema, normal voice Neck: normal inspection, full range of motion, supple, no bony tend, tracheotomy Respiratory: normal inspection, lungs clear, normal breath sounds, no respiratory distress, no retraction, no wheezing Cardiovascular #1: regular rate, rhythm, no edema Medical Decision Making Medicare Attestation I Marco Siegel MD hereby attest that the medical record entry for date of service, 05/31/17 accurately reflects signatures/notations that I made in my capacity as MD when I treated/diagnosed the above listed Medicare beneficiary. I attest that this information is true, accurate and complete to the best of my knowledge. I understand that any falsification, omission, or concealment of material fact may subject me to administrative, civil, or criminal liability. This patient warrants hospital admission for extreme of age and has a condition that cannot be treated as outpatient. ER Course Sent for abnormal lab tests Concern for sepsis Vitals stable. Afebrile Asymptomatic Leuks 19.9, H&H stable. Lactate WNL CXR negative for PNA UA pending at time of admssion Blood Cx pending Empiric Abx given Endorsed to Dr Keating for [facility] admit given trach/vent at 845pm EKG Diagnostic Results Rate: normal Rhythm: NSR ST Segments: no acute changes ASA given to the pt in ED: No Rhythm Strip Diag. Results EP Interpretation: yes Rate: 108 Rhythm: NSR, no PVC's, no ectopy Chest X-Ray Diagnostic Results Chest X-Ray Diagnostic Results : Chest X-Ray Ordered: Yes # of Views/Limited/Complete: 1 View Indication: Other - Sepsis EP Interpretation: Yes Interpretation: no consolidation, no effusion, no pneumothorax, no acute cardiopulmonary disease, other - Trach in place Impression: No acute disease Electronically Signed by: Dr Marco Siegel MD Status: improved Disposition: ADMITTED INPATIENT Condition: Serious MARCO SIEGEL M.D. May 31, 2017 19:11
[2017-05-31 20:28] LABS: MEAN CORPUSCULAR HEMOGLOBIN 27.2 PG (27.0-31.0); MEAN CORPUSCULAR HGB CONC 32.4 G/DL (32.0-36.0); MEAN CORPUSCULAR VOLUME 84 FL (80-99); MEAN PLATELET VOLUME 6.7 FL (6.5-10.1); PLATELET COUNT 571 K/UL (150-450); RED BLOOD COUNT 3.02 M/UL (4.70-6.10); RED CELL DISTRIBUTION WIDTH 16.2 % (11.6-14.8); WHITE BLOOD COUNT 19.9 K/UL (4.8-10.8)
[2017-05-31 20:36] LABS: TROPONIN I < 0.30 ng/mL (<=0.30)
[2017-05-31 20:38] LABS: ALANINE AMINOTRANSFERASE 12 U/L (3-41); ALBUMIN/GLOBULIN RATIO 0.9 (1.0-2.7); ANION GAP 16 (5-15); ASPARTATE AMINO TRANSFERASE 11 U/L (5-40); CARBON DIOXIDE 19 mEQ/L (20-30); CHLORIDE 97 mEQ/L (98-107); CREATININE 0.7 mg/dL (0.7-1.2); GLOMERULAR FILTRATION RATE > 60 mL/min (>60); HEMOLYSIS 0; POTASSIUM 3.6 mEQ/L (3.4-4.9); SODIUM 132 mEQ/L (135-145); TOTAL PROTEIN 7.2 g/dL (6.6-8.7)
[2017-05-31 20:57] VITALS: BP 122/74
[2017-05-31 21:10] LABS: CKMB 2.6 ng/mL (< 6.7)
[2017-05-31 21:37] LABS: ANISOCYTOSIS 1+; BAND NEUTROPHILS % (MANUAL) 4 % (0-8); BASOPHILS % (MANUAL) 0 % (0-2); EOSINOPHILS % (MANUAL) 8 % (0-3); HYPOCHROMASIA 1+; LYMPHOCYTES % (MANUAL) 22 % (20-45); NEUTROPHILS % (MANUAL) 60 % (45-75); PLATELET ESTIMATE INCREASED; PLATELET MORPHOLOGY NORMAL; TOTAL CELLS COUNTED 100
[2017-05-31 21:41] LABS: KETONES,URINE NEGATIVE (NEGATIVE); LEUKOCYTE ESTERASE ,URINE 3+ (NEGATIVE); NITRITE,URINE NEGATIVE (NEGATIVE); PH,URINE 6.5 (4.5-8.0); PROTEIN,URINE 2+ (NEGATIVE); UROBILINOGEN,URINE NORMAL MG/DL (0.0-1.0)
[2017-05-31 21:44] LABS: APPEARANCE,URINE SLIGHTLY CLOUDY
[2017-05-31 21:45] LABS: RBC,URINE 15-20 /HPF (0 - 0)
[2017-05-31] MEDS ORDERED: Morphine Sulfate 4mg/ml Inj IVP PRN (21:45)
[2017-05-31] MEDS ORDERED: Miralax 17gm pkt ORAL PRN (21:45)
[2017-05-31] MEDS ORDERED: Albuterol/Ipratropium 3ml neb HHN PRN (21:45)
[2017-05-31 21:46] LABS: AMORPHOUS SEDIMENT,UR FEW /LPF; BACTERIA,URINE MODERATE /HPF; CALCIUM OXALATE CRYSTALS,UR FEW /LPF; YEAST,URINE MODERATE /HPF
[2017-05-31] MEDS ORDERED: Vancomycin 1250mg/D5W 250ml 250 ML IVPB SCH (22:30)
[2017-06-01] VITALS: BP 157/83
[2017-06-01] MEDS ORDERED: MILK OF MA400 MG/51 GT (00:22)
[2017-06-01] MEDS ORDERED: BACTRIM DS TAB1 EAC1 GT (00:22)
[2017-06-01] MEDS ORDERED: triamcinolone cream TOPIC (00:22)
[2017-06-01] MEDS ORDERED: VANCOMYCIN1 GM/2502 IVPB (00:22)
[2017-06-01] MEDS: Piperacillin/Tazobactam 3.375 GM in NS 110 ML IVPB SCH ×4 (00:29→22:27)
[2017-06-01] MEDS ORDERED: DULCOLAX10 MG RC (00:40)
[2017-06-01 04:36] VITALS: BP 131/81
[2017-06-01 07:00] LABS: MEAN CORPUSCULAR HEMOGLOBIN 26.9 PG (27.0-31.0); MEAN CORPUSCULAR HGB CONC 32.1 G/DL (32.0-36.0); MEAN CORPUSCULAR VOLUME 84 FL (80-99); MEAN PLATELET VOLUME 6.8 FL (6.5-10.1); PLATELET COUNT 604 K/UL (150-450); RED BLOOD COUNT 3.29 M/UL (4.70-6.10); RED CELL DISTRIBUTION WIDTH 15.8 % (11.6-14.8); WHITE BLOOD COUNT 19.9 K/UL (4.8-10.8)
[2017-06-01 07:04] LABS: ANION GAP 13 (5-15); CALCIUM 9.1 mg/dL (8.6-10.2); CARBON DIOXIDE 22 mEQ/L (20-30); CHLORIDE 97 mEQ/L (98-107); CREATININE 0.7 mg/dL (0.7-1.2); GLOMERULAR FILTRATION RATE > 60 mL/min (>60); HEMOLYSIS 3; POTASSIUM 3.7 mEQ/L (3.4-4.9); SODIUM 132 mEQ/L (135-145)
[2017-06-01 08:00] VITALS: BP 134/83
--- NOTE | 2017-06-01 08:05 | History and Physical ---
History of Present Illness General Date patient seen: Jun 01, 2017 Time patient seen: 07:30 Reason for Hospitalization: Abnormal Labs Present Illness HPI 66y/old male with PMH of VDRF/trach, dysphagia, G tube, CVA with residual hemiplegia, HTN, hypothyroidism, severe erosive gastritis, anemia, recurrent UTI , hx of C dif colitis, schizophrenia,, chronic encephalopathy, was sent from SNF with abnormal labs: leuks 19K. Hn/Hct 7.5/23.9 Workup in ED reveled leukocytosis-19.9 HH-8.2/25.4 tachycardia low grade fever lactic acid-1.7 UA with evidence of UTI CXR R infrahilar atelectasis, no acute process otherwise sepsis protocol was initiated and patient was admitted to [facility] for further management this am leukocytosis, no fever, tachycardia HH with some trend up Allergies: Coded Allergies: NO KNOWN DRUG ALLERGIES (Verified Allergy, Unknown, 09/11/16) Medication History Scheduled Amlodipine Besylate (Norvasc), 2.5 MG ORAL DAILY Ascorbic Acid* (Vitamin C*), 500 MG GT DAILY, (Reported) Colistimethate Sodium (Colistin), 75 MG INH Q12HR@10,22 Docusate Sodium* (Docusate Sodium*), 100 MG GT TWICE A DAY, (Reported) Famotidine (Famotidine), 20 MG GT DAILY, (Reported) Ferrous Sulfate (Ferrous Sulfate), 7.5 ML NG TWICE A DAY, (Reported) Folic Acid* (Folic Acid*), 1 MG GT DAILY, (Reported) Levothyroxine Sodium* (Levothyroxine Sodium*), 50 MCG GT DAILY, (Reported) Magnesium Hydroxide* (Milk Of Magnesia*), 30 ML GT HS, (Reported) Meropenem-0.9% Sodium Chloride (Meropenem-0.9% NaCl 1 Gram/50), 1 GM IV EVERY 8 HOURS Multivitamin Liquid* (Multi-Delyn*), 15 ML GT DAILY, (Reported) Vsawufjengar-Atjr-Tcnjajzl,Iso (Zosyn 3.375 Gm Pre Mix-Bag), 3.375 GM IVPB EVERY 8 HOURS Protein Supplement (Promod), 30 ML GT DAILY, (Reported) Sucralfate* (Carafate*), 1 GM GT FOUR TIMES A DAY, (Reported) Trimethoprim/Sulfamethoxazole 160/800* (Bactrim Ds Tablet*), 1 TAB GT BID, ( Reported) Vancomycin Hcl/D5w (Vancomycin-D5w 1 G/250 Ml), 750 GM IVPB Q12HR, (Reported) Zinc Sulfate (Zinc Sulfate*), 220 MG ORAL DAILY, (Reported) [triamcinolone cream], 0.1 % TOPIC BID, (Reported) Scheduled PRN Acetaminophen (Acetaminophen), 640 MG GT Q4HR PRN for Prn Headache/Temp > 101, ( Reported) Bisacodyl (Dulcolax), 10 MG RC NEEDED PRN for Constipation, (Reported) Ipratropium/Albuterol Sulfate (DuoNeb 0.5-3(2.5)mg/3ml), 3 ML HHN Q4H PRN for Shortness of Breath Miscellaneous Medications Cran/Vitc/Mannose/Inulin/Brom (Uti-Stat Liquid), 3,875 MG PO, (Reported) Patient History Healthcare decision maker N Resuscitation status Full Code Advanced Directive on File Past Medical/Surgical History Past Medical/Surgical History: (1) Hypothyroidism (2) Pyelonephritis (3) Respiratory failure (4) Anemia (5) Tracheostomy dependence (6) HTN (hypertension) (7) Sepsis (8) C. 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 (19) Malfunction of gastrostomy tube Review of Systems ROS Narrative unable to obtain due to chronic encephalopathy and ventilator status Physical Exam General Appearance: cachetic, other - Vent AC 600-14-35% Lines, tubes and drains: peripheral, trach - Shiley #6, secretions moderate, yellow, thick HEENT: normocephalic, atraumatic, anicteric Respiratory/Chest: lungs clear - with moderate air exchange , no respiratory distress Cardiovascular/Chest: normal rate, regular rhythm - SR on tele Abdomen: normal bowel sounds, non tender, soft - mild distention Neurologic: abnormal gait - bedridden , other - Left hemiplegia Musculoskeletal: atrophy - BLE Last 24 Hour Vital Signs Date Time Temp Pulse Resp B/P (MAP) Pulse Ox O2 Delivery O2 Flow Rate FiO2 06/01/17 07:10 101 22 35 06/01/17 05:19 106 19 35 06/01/17 04:36 97.2 101 19 131/81 98 Endotracheal Tube 101 06/01/17 03:38 106 06/01/17 03:15 103 21 35 06/01/17 01:19 103 19 35 06/01/17 00:30 35 06/01/17 00:00 98.2 102 23 157/83 100 Mechanical Ventilator 35 06/01/17 00:00 35 06/01/17 00:00 99 05/31/17 23:27 101 19 35 05/31/17 21:45 99.6 97 23 122/74 100 Mechanical Ventilator 35 05/31/17 20:57 99.6 97 23 122/74 100 Mechanical Ventilator 35 05/31/17 20:35 103 19 35 05/31/17 19:25 99 21 35 05/31/17 19:07 96.6 95 20 122/74 100 Mechanical Ventilator 35 Laboratory Tests Test 05/31/17 20:00 05/31/17 20:39 06/01/17 06:20 White Blood Count 19.9 K/UL (4.8-10.8) H 19.9 K/UL (4.8-10.8) H Red Blood Count 3.02 M/UL (4.70-6.10) L 3.29 M/UL (4.70-6.10) L Hemoglobin 8.2 G/DL (14.2-18.0) L 8.8 G/DL (14.2-18.0) L Hematocrit 25.4 % (42.0-52.0) L 27.5 % (42.0-52.0) L Mean Corpuscular Volume 84 FL (80-99) 84 FL (80-99) Mean Corpuscular Hemoglobin 27.2 PG (27.0-31.0) 26.9 PG (27.0-31.0) L Mean Corpuscular Hemoglobin Concent 32.4 G/DL (32.0-36.0) 32.1 G/DL (32.0-36.0) Red Cell Distribution Width 16.2 % (11.6-14.8) H 15.8 % (11.6-14.8) H Platelet Count 571 K/UL (150-450) H 604 K/UL (150-450) H Mean Platelet Volume 6.7 FL (6.5-10.1) 6.8 FL (6.5-10.1) Neutrophils (%) (Auto) % (45.0-75.0) % (45.0-75.0) Lymphocytes (%) (Auto) % (20.0-45.0) % (20.0-45.0) Monocytes (%) (Auto) % (1.0-10.0) % (1.0-10.0) Eosinophils (%) (Auto) % (0.0-3.0) % (0.0-3.0) Basophils (%) (Auto) % (0.0-2.0) % (0.0-2.0) Differential Total Cells Counted 100 Neutrophils % (Manual) 60 % (45-75) Pending Lymphocytes % (Manual) 22 % (20-45) Pending Monocytes % (Manual) 6 % (1-10) Eosinophils % (Manual) 8 % (0-3) H Basophils % (Manual) 0 % (0-2) Band Neutrophils 4 % (0-8) Platelet Estimate Increased H Pending Platelet Morphology Normal Pending Hypochromasia 1+ Anisocytosis 1+ Sodium Level 132 mEQ/L (135-145) L 132 mEQ/L (135-145) L Potassium Level 3.6 mEQ/L (3.4-4.9) 3.7 mEQ/L (3.4-4.9) Chloride Level 97 mEQ/L (98-107) L 97 mEQ/L (98-107) L Carbon Dioxide Level 19 mEQ/L (20-30) L 22 mEQ/L (20-30) Anion Gap 16 (5-15) H 13 (5-15) Blood Urea Nitrogen 13 mg/dL (7-23) 12 mg/dL (7-23) Creatinine 0.7 mg/dL (0.7-1.2) 0.7 mg/dL (0.7-1.2) Estimat Glomerular Filtration Rate > 60 mL/min (>60) > 60 mL/min (>60) Glucose Level 114 mg/dL (74-106) H 125 mg/dL (74-106) H Lactic Acid Level 1.70 mmol/L (0.66-2.22) Calcium Level 9.0 mg/dL (8.6-10.2) 9.1 mg/dL (8.6-10.2) Total Bilirubin < 0.2 mg/dL (0.0-1.2) Aspartate Amino Transf (AST/SGOT) 11 U/L (5-40) Alanine Aminotransferase (ALT/SGPT) 12 U/L (3-41) Alkaline Phosphatase 119 U/L (40-129) Total Creatine Kinase 67 U/L (38-174) Creatine Kinase MB 2.6 ng/mL (< 6.7) Creatine Kinase MB Relative Index 3.8 Troponin I < 0.30 ng/mL (<=0.30) Total Protein 7.2 g/dL (6.6-8.7) Albumin 3.5 g/dL (3.5-5.2) 3.4 g/dL (3.5-5.2) L Globulin 3.7 g/dL Albumin/Globulin Ratio 0.9 (1.0-2.7) L Urine Color Yellow Urine Appearance Slightly cloudy Urine pH 6.5 (4.5-8.0) Urine Specific [place] 1.020 (1.005-1.035) Urine Protein 2+ (NEGATIVE) H Urine Glucose (UA) Negative (NEGATIVE) Urine Ketones Negative (NEGATIVE) Urine Occult Blood 4+ (NEGATIVE) H Urine Nitrite Negative (NEGATIVE) Urine Bilirubin Negative (NEGATIVE) Urine Urobilinogen Normal MG/DL (0.0-1.0) Urine Leukocyte Esterase 3+ (NEGATIVE) H Urine RBC 15-20 /HPF (0 - 0) H Urine WBC 10-15 /HPF (0 - 0) H Urine Squamous Epithelial Cells None /LPF (NONE/OCC) Urine Calcium Oxalate Crystals Few /LPF (NONE) Urine Amorphous Sediment Few /LPF (NONE) H Urine Bacteria Moderate /HPF (NONE) H Urine Yeast Moderate /HPF (NONE) H Phosphorus Level 4.0 mg/dL (2.5-4.8) Height (Feet): 5 Height (Inches): 6.00 Weight (Pounds): 138 Medications Current Medications Medications (Trade) Dose Ordered Sig/Wanda Route PRN Reason Start Time Stop Time Status Last Admin Dose Admin Acetaminophen (Tylenol) 650 mg Q4H PRN ORAL FEVER 05/31/17 21:45 06/30/17 21:44 Albuterol/ Ipratropium (DuoNeb 0.5-3(2.5)mg/3ml) 3 ml EVERY 4 HOURS PRN HHN Shortness of Breath 05/31/17 21:45 06/05/17 21:44 Dextrose (Dextrose 50%) STAT PRN IV Hypoglycemia 05/31/17 21:45 06/30/17 21:44 Heparin Sodium (Porcine) (Heparin 5000 units/ml) 5,000 units EVERY 12 HOURS SUBQ 06/01/17 09:00 07/01/17 08:59 Lansoprazole (Prevacid) 30 mg DAILY GT 06/01/17 09:00 07/01/17 08:59 Levothyroxine Sodium (Synthroid) 50 mcg DAILY GT 06/01/17 09:00 07/01/17 08:59 Lorazepam (Ativan 2mg/ml 1ml) 2 mg EVERY 2 HOURS PRN IV For Anxiety 05/31/17 21:45 06/07/17 21:44 Morphine Sulfate (Morphine Sulfate) 4 mg EVERY 4 HOURS PRN IVP Severe Pain (Pain Scale 7-10) 05/31/17 21:45 06/07/17 21:44 Ondansetron HCl (Zofran) 4 mg Q6H PRN IVP Nausea & Vomiting 05/31/17 21:45 06/30/17 21:44 Piperacillin Sod/ Tazobactam Sod 3.375 gm/Sodium Chloride 110 ml @ 27.5 mls/hr EVERY 6 HOURS IVPB 06/01/17 00:00 06/08/17 00:00 06/01/17 05:45 Polyethylene Glycol (Miralax) 17 gm DAILYPRN PRN ORAL Constipation 05/31/17 21:45 06/30/17 21:44 Vancomycin HCl 1 gm/Dextrose 275 ml @ 183.708 mls/hr Q12H IVPB 06/01/17 10:00 06/06/17 09:59 Assessment/Plan Assessment/Plan ASSESSMENT leukocytosis possible sepsis possible UTI with hx of recurrent complicated UTI possible recurrent HCAP VDRF/trach anemia dysphagia, G tube chronic encephalopathy hx of CVA with L hemiplegia hypothyroidism schizophrenia functional quadriplegia PLAN OF CARE [facility] status vent/trach care pulmonary toilet baseline ABG and titrate settings as needed pulmonary toilet prn fup with CXR empiric abx, fup with cx ID consult aspiration precautions, GT feeding, monitor tolerance DVT GI prophylaxis Venous Duplex BLE monitor HH, transfuse prn , anemia w/up done on previous admission continue Levothyroxine, check TSH Bowel regimen resume SNF meds wound protocol get KUB due to distended abdomen case discussed and evaluated by supervising physician Jose Pa),Amina ANDRE Jun 01, 2017 08:05
[2017-06-01] MEDS ORDERED: Pantoprazole Inj IV SCH (09:00)
[2017-06-01] MEDS: Heparin 5000 units/ml inj SUBQ SCH ×2 (09:25→20:46)
[2017-06-01 09:34] LABS: ABG ALLEN TEST POSITIVE; ABG PCO2 27.5 mmHg (35.0-45.0)
[2017-06-01 09:49] LABS: BAND NEUTROPHILS % (MANUAL) 0 % (0-8); BASOPHILS % (MANUAL) 0 % (0-2); EOSINOPHILS % (MANUAL) 7 % (0-3); LYMPHOCYTES % (MANUAL) 11 % (20-45); NEUTROPHILS % (MANUAL) 73 % (45-75); PLATELET ESTIMATE INCREASED; TOTAL CELLS COUNTED 100
[2017-06-01 09:50] LABS: ANISOCYTOSIS 1+; HYPOCHROMASIA 1+; PLATELET MORPHOLOGY NORMAL
--- NOTE | 2017-06-01 09:56 | Diagnostic Imaging Report ---
Indication: Shortness of breath Technique: One view of the chest Comparison: 04/25/2017 Findings: Better inspiration currently, with improved aeration of the right lung base. There is still some atelectasis or scarring in the right infrahilar region, as well. Lung and pleural spaces are otherwise clear. Heart size is normal. Tracheostomy remains. Impression: Right infrahilar atelectasis. No acute process otherwise Tracheostomy
[2017-06-01] MEDS: Vancomycin 1gm/D5W 275ml IVPB SCH ×4 (10:14→21:41)
[2017-06-01 12:00] VITALS: BP 128/81
[2017-06-01 16:00] VITALS: BP 113/80
--- NOTE | 2017-06-01 16:41 | Consultation ---
Consult Note Consult Note ID CONSULT: Earl# [id number] Assessment/Plan ASSESSMENT: 66 y/o male with: // Possible recurrent aspiration PNA / HCAP - SGS polymicrobial, Cx pending - CXR 06/01: Right infrahilar atelectasis. 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 Will LUNA Sexton Jun 01, 2017 16:41
--- NOTE | 2017-06-01 16:43 | Diagnostic Imaging Report ---
Indication: Abdominal distention Technique: Supine view of the abdomen Comparison: 04/15/2017 Findings: The distal sigmoid is diffusely dilated, measuring 12 cm in diameter. This is more distended than on the prior study aerated the remainder of the colon is diffusely gas filled, upper limits normal in caliber. Diffusely gas filled upper limits of normal caliber small bowel loops are also demonstrated, extent of gas greater than on the previous study. A gastrostomy is again demonstrated. Impression: Dilated sigmoid colon, as described. Suspect that this is chronic, on a functional basis, as a prior CT scan of 2015 demonstrated a dilated stool-filled sigmoid of similar caliber without evidence of distal obstruction. However, particularly in light of the greater degree of distention as compared to the prior study, the possibility of distal obstruction cannot rule out. Findings much less likely represent a sigmoid volvulus although this likewise is not completely excludable. Diffusely gas-filled large and small bowel elsewhere, similar to but more extensive than on the previous study. Likewise, suspect on a chronic functional basis, but could also be related to distal obstruction there is present. Correlate with clinical findings, consider followup radiographs or CT scan as clinically indicated Findings phoned to Dr. Keating at the time of interpretation
[2017-06-01 20:05] VITALS: BP 113/64
[2017-06-01] MEDS ORDERED: Vancomycin 1 GM in D5W 275 ML IV SCH (23:00)
[2017-06-02 00:04] VITALS: BP 124/74
--- NOTE | 2017-06-02 01:15 | Consultation ---
DATE OF CONSULTATION: 06/01/2017 INFECTIOUS DISEASE CONSULTATION REQUESTING PHYSICIAN: Huma Keating M.D. REASON FOR CONSULTATION: Sepsis. History Of Present Illness: This is a 66-year-old male, assisted resident with history of chronic ventilator-dependent respiratory failure, chronic encephalopathy, recurrent upper GI bleeding due to erosive esophagitis, recurrent sepsis, and recurrent multidrug-resistant infections, who was sent from the assisted on 05/31/2017 for evaluation of leukocytosis of 19 and hemoglobin of 7.5 on routine laboratories. The patient is unable to provide any information. Leukocytosis was confirmed on repeat CBC here and hemoglobin found to be 8.2 and 8.8 on repeat here. He has not required transfusion. Urinalysis suggest possible recurrent UTI. Cultures are pending. He has been started on empiric IV vancomycin and Zosyn and ID now consulted to assist in management. PAST MEDICAL HISTORY: 1. History of recurrent ventilator-associated pneumonia with history of growth of group B Streptococcus, multidrug-resistant Acinetobacter, carbapenem-resistant Klebsiella pneumoniae, and Providencia stuartii. 2. History of recurrent UTIs with history of growth of carbapenem-resistant Klebsiella pneumoniae, Morganella morganii, Proteus mirabilis, Extended-spectrum beta-lactamases positive Klebsiella pneumoniae. 3. History of left nonobstructive nephrolithiasis. 4. History of recurrent upper GI bleeding due to erosive esophagitis. 5. Chronic ventilator-dependent respiratory failure. 6. Chronic encephalopathy and dementia. 7. Functional quadriplegia and bedbound. 8. Multidrug-resistant organism colonized including MRSA, VRE, carbapenem-resistant organisms, and multidrug-resistant Acinetobacter. PAST SURGICAL HISTORY: 1. Tracheostomy. 2. PEG tube placement with multiple revisions. ALLERGIES: No known drug allergies. MEDICATIONS: 1. Vancomycin day #1. 2. Zosyn day #1. 3. Synthroid. 4. Subcutaneous heparin. 5. Prevacid. FAMILY HISTORY: Unknown. Social History: The patient is a long-term resident in the assisted. No active tobacco, alcohol, or illicit drug abuse. REVIEW OF SYSTEMS: Unable to obtain. PHYSICAL EXAMINATION: Vital Signs: Maximum temperature 99.6, blood pressure 120/81, heart rate in the 90s, respiratory rate 20, and saturating 100% on 35% FiO2. GENERAL: In no apparent distress. Nonverbal. HEENT: Tracheostomy tube in place. CARDIOVASCULAR: Regular rate and rhythm. No murmurs. PULMONARY: Coarse breath sounds bilaterally. Abdominal: Bowel sounds present. Soft, nondistended, and nontender. PEG tube in place. EXTREMITIES: Contracted and edematous. SKIN: A superficial decubitus photographically documented elsewhere. Laboratory Data: White blood cell count 99.9, hemoglobin 8.8, and platelets 604,000. Sodium 132, potassium 3.7, chloride 97, bicarbonate 22, BUN 12, and creatinine 0.7. Lactic acid 1.7. Liver function tests within normal limits. Troponin negative x1. Urinalysis with pyuria, bacteriuria, and funguria. MICROBIOLOGY: 1. On 06/01/2017, sputum Gram stain is polymicrobial and culture is pending. 2. On 06/01/2017, C. difficile toxin pending. 3. On 05/31/2017, blood culture pending. 4. On 05/31/2017, urine culture pending. IMAGIN. On 06/01/2017, bilateral lower extremity Doppler ultrasound, negative for DVT. 2. On 05/31/2017, chest x-ray, right infrahilar atelectasis, otherwise no acute process. ASSESSMENT: 1. Possible recurrent aspiration pneumonia or healthcare-associated pneumonia. Sputum Gram stain is polymicrobial and culture is pending. Chest x-ray shows right infrahilar atelectasis and otherwise no acute process. He has a history of growth of group B Streptococcus, multidrug-resistant Acinetobacter, carbapenem-resistant Klebsiella pneumoniae, and Providencia stuartii. 2. Possible recurrent urinary tract infection. Urine culture is pending. There is a history of left nonobstructive nephrolithiasis and growth of multidrug-resistant organisms. 3. Possible recurrent sepsis. Cultures are pending. 4. Leukocytosis, recurrence and stable and afebrile. 5. History of recurrent upper gastrointestinal bleeding and erosive esophagitis with a decrease in hemoglobin from previous. 6. Chronic ventilator-dependent respiratory failure, status post percutaneous endoscopic gastrostomy tube placement with multiple revisions and replacements. 7. Chronic encephalopathy/dementia. 8. Thrombocytosis. 9. jail resident. 10. Functional quadriplegia/bedbound. 11. Frequent hospital readmissions. 12. Multidrug-resistant organism colonized including methicillin-resistant Staphylococcus aureus, vancomycin resistant Enterococcus, Klebsiella pneumoniae carbapenemase, and multidrug-resistant Acinetobacter. 13. No known drug allergies. 14. Full Code. PLAN: 1. Continue empiric IV vancomycin and Zosyn day #1 pending cultures. 2. Follow up cultures and adjust antibiotics accordingly. 3. Monitor CBC and temperatures. 4. Monitor BMP. 5. Monitor chest x-ray. 6. Ventilator support, tracheostomy care, and aspiration precautions. Thank you. We will follow. Abdiel Lamas M.D. DR: MAHENDRA JOB#: [id number] CC: Huma Keating M.D.; Fax#: [phone] Floyd M.D; Fax#: [phone]
[2017-06-02 03:55] VITALS: BP 139/79
[2017-06-02] MEDS: Piperacillin/Tazobactam 3.375 GM in NS 110 ML IVPB SCH ×3 (06:07→21:27)
[2017-06-02 06:34] LABS: BASOPHILS % (AUTO) 0.6 % (0.0-2.0); EOSINOPHILS % (AUTO) 19.1 % (0.0-3.0); LYMPHOCYTES % (AUTO) 11.9 % (20.0-45.0); MEAN CORPUSCULAR HEMOGLOBIN 27.5 PG (27.0-31.0); MEAN CORPUSCULAR HGB CONC 32.5 G/DL (32.0-36.0); MEAN CORPUSCULAR VOLUME 85 FL (80-99); MEAN PLATELET VOLUME 6.6 FL (6.5-10.1); MONOCYTES % (AUTO) 10.3 % (1.0-10.0); NEUTROPHILS % (AUTO) 58.1 % (45.0-75.0); PLATELET COUNT 622 K/UL (150-450); RED BLOOD COUNT 3.08 M/UL (4.70-6.10); RED CELL DISTRIBUTION WIDTH 16.1 % (11.6-14.8); WHITE BLOOD COUNT 14.9 K/UL (4.8-10.8)
[2017-06-02 06:49] LABS: ANION GAP 10 (5-15); CALCIUM 9.1 mg/dL (8.6-10.2); CARBON DIOXIDE 26 mEQ/L (20-30); CHLORIDE 101 mEQ/L (98-107); CREATININE 0.7 mg/dL (0.7-1.2); GLOMERULAR FILTRATION RATE > 60 mL/min (>60); HEMOLYSIS 1; POTASSIUM 3.9 mEQ/L (3.4-4.9); SODIUM 137 mEQ/L (135-145)
[2017-06-02 08:00] VITALS: BP 116/82
[2017-06-02] MEDS: Heparin 5000 units/ml inj SUBQ SCH ×2 (08:52→21:33)
--- NOTE | 2017-06-02 09:15 | Infectious Diseases Prog Note ---
Assessment/Plan Assessment/Plan ASSESSMENT:# . Possible recurrent aspiration pneumonia or healthcare-associated pneumonia. Sputum Gram stain is polymicrobial and culture is growing GNB (/ ) Chest x-ray shows right infrahilar atelectasis and otherwise no acute process. He has a history of growth of group B Streptococcus, multidrug-resistant Acinetobacter, carbapenem-resistant Klebsiella pneumoniae, and Providencia stuartii. #. Possible recurrent urinary tract infection. Urine culture is growign yeast so far (colonizer) There is a history of left nonobstructive nephrolithiasis and growth of multidrug-resistant organisms. # Possible recurrent sepsis. Cultures are pending. # Leukocytosis, recurrence and stable and afebrile; improving #Rash-possible scabies # History of recurrent upper gastrointestinal bleeding and erosive esophagitis with a decrease in hemoglobin from previous. # Chronic ventilator-dependent respiratory failure, status post percutaneous endoscopic gastrostomy tube placement with multiple revisions and replacements. # Chronic encephalopathy/dementia. # Thrombocytosis. #. senior living resident. #. Functional quadriplegia/bedbound. # Frequent hospital readmissions. # Multidrug-resistant organism colonized including methicillin-resistant Staphylococcus aureus, vancomycin resistant Enterococcus, Klebsiella pneumoniae carbapenemase, and multidrug-resistant Acinetobacter. # No known drug allergies. #. Full Code. PLAN: -. Continue empiric IV vancomycin and Zosyn day #2 pending cultures. - Follow up cultures and adjust antibiotics accordingly. -Will treat for possible scabies - Monitor CBC and temperatures. -. Monitor BMP. - Monitor chest x-ray. - Ventilator support, tracheostomy care, and aspiration precautions. -COntact precautions Thank you. We will follow. Subjective Allergies: Coded Allergies: NO KNOWN DRUG ALLERGIES (Verified Allergy, Unknown, 09/11/16) Subjective afebrile Leukocytosis trending down Bcx NTD sp cx growign GNB Objective Vital Signs Last 24 Hour Vital Signs Date Time Temp Pulse Resp B/P (MAP) Pulse Ox O2 Delivery O2 Flow Rate FiO2 06/02/17 08:43 94 06/02/17 08:00 98.2 95 17 116/82 100 Mechanical Ventilator 35 06/02/17 08:00 35 06/02/17 07:15 85 15 35 06/02/17 05:12 75 18 35 06/02/17 04:00 90 06/02/17 04:00 35 06/02/17 03:55 96.5 87 20 139/79 100 Mechanical Ventilator 87 06/02/17 03:35 66 23 35 06/02/17 01:14 54 18 35 06/02/17 00:04 99.1 63 20 124/74 91 Room Air 62 06/02/17 00:00 35 06/01/17 23:50 89 18 35 06/01/17 23:37 94 06/01/17 21:00 98 17 35 06/01/17 20:05 98.1 93 20 113/64 100 Mechanical Ventilator 93 06/01/17 20:00 35 06/01/17 19:28 92 06/01/17 19:12 100 20 35 06/01/17 16:49 99 17 35 06/01/17 16:00 35 06/01/17 16:00 93 06/01/17 16:00 98.1 99 19 113/80 100 Mechanical Ventilator 35 06/01/17 15:15 92 17 35 06/01/17 12:56 97 20 35 06/01/17 12:00 98.2 99 17 128/81 100 Mechanical Ventilator 35 06/01/17 12:00 100 06/01/17 12:00 35 06/01/17 10:52 96 18 35 Height (Feet): 5 Height (Inches): 6.00 Weight (Pounds): 138 Objective GENERAL: In no apparent distress. Nonverbal. HEENT: Tracheostomy tube in place. CARDIOVASCULAR: Regular rate and rhythm. No murmurs. PULMONARY: Coarse breath sounds bilaterally. Abdominal: Bowel sounds present. Soft, nondistended, and nontender. PEG tube in place. EXTREMITIES: Contracted and edematous. SKIN: A superficial decubitus photographically documented elsewhere; excoriated rash with burrows on abdomen, b/l thighs, arms. Microbiology Date/Time Source Procedure Growth Status 05/31/17 20:05 Blood Blood Culture - Preliminary NO GROWTH AFTER 24 HOURS Resulted 05/31/17 20:00 Blood Blood Culture - Preliminary NO GROWTH AFTER 24 HOURS Resulted 06/01/17 04:00 Sputum Gram Stain - Final Resulted 06/01/17 04:00 Sputum Culture - Preliminary Gram Negative Bacillus 1 Resulted 06/01/17 11:30 Stool Clostridium difficile Toxin Assay - Final Complete 05/31/17 20:39 Urine,Clean Catch Urine Culture - Preliminary YEAST Resulted Laboratory Tests Test 06/01/17 09:20 06/02/17 05:45 06/02/17 06:15 Arterial Blood pH 7.490 (7.350-7.450) Arterial Blood Partial Pressure CO2 27.5 mmHg (35.0-45.0) L Arterial Blood Partial Pressure O2 120.5 mmHg (75.0-100.0) H Arterial Blood HCO3 20.5 mmol/L (22.0-26.0) L Arterial Blood Oxygen Saturation 98.4 % (92.0-98.0) H Arterial Blood Base Excess -2.0 Ger Test Positive Sodium Level 137 mEQ/L (135-145) Potassium Level 3.9 mEQ/L (3.4-4.9) Chloride Level 101 mEQ/L (98-107) Carbon Dioxide Level 26 mEQ/L (20-30) Anion Gap 10 (5-15) Blood Urea Nitrogen 14 mg/dL (7-23) Creatinine 0.7 mg/dL (0.7-1.2) Estimat Glomerular Filtration Rate > 60 mL/min (>60) Glucose Level 111 mg/dL (74-106) H Calcium Level 9.1 mg/dL (8.6-10.2) Thyroid Stimulating Hormone (TSH) 1.950 uIU/mL (0.300-4.500) White Blood Count 14.9 K/UL (4.8-10.8) H Red Blood Count 3.08 M/UL (4.70-6.10) L Hemoglobin 8.5 G/DL (14.2-18.0) L Hematocrit 26.1 % (42.0-52.0) L Mean Corpuscular Volume 85 FL (80-99) Mean Corpuscular Hemoglobin 27.5 PG (27.0-31.0) Mean Corpuscular Hemoglobin Concent 32.5 G/DL (32.0-36.0) Red Cell Distribution Width 16.1 % (11.6-14.8) H Platelet Count 622 K/UL (150-450) H Mean Platelet Volume 6.6 FL (6.5-10.1) Neutrophils (%) (Auto) 58.1 % (45.0-75.0) Lymphocytes (%) (Auto) 11.9 % (20.0-45.0) L Monocytes (%) (Auto) 10.3 % (1.0-10.0) H Eosinophils (%) (Auto) 19.1 % (0.0-3.0) H Basophils (%) (Auto) 0.6 % (0.0-2.0) Current Medications Medications (Trade) Dose Ordered Sig/Wanda Route PRN Reason Start Time Stop Time Status Last Admin Dose Admin Acetaminophen (Tylenol) 650 mg Q4H PRN ORAL FEVER 05/31/17 21:45 06/30/17 21:44 Albuterol/ Ipratropium (DuoNeb 0.5-3(2.5)mg/3ml) 3 ml EVERY 4 HOURS PRN HHN Shortness of Breath 05/31/17 21:45 06/05/17 21:44 Dextrose (Dextrose 50%) STAT PRN IV Hypoglycemia 05/31/17 21:45 06/30/17 21:44 Heparin Sodium (Porcine) (Heparin 5000 units/ml) 5,000 units EVERY 12 HOURS SUBQ 06/01/17 09:00 07/01/17 08:59 06/02/17 08:52 Lansoprazole (Prevacid) 30 mg DAILY GT 06/01/17 09:00 07/01/17 08:59 06/02/17 08:50 Levothyroxine Sodium (Synthroid) 50 mcg ACBREAKFAST GT 06/02/17 06:30 07/01/17 08:59 06/02/17 06:08 Lorazepam (Ativan 2mg/ml 1ml) 2 mg EVERY 2 HOURS PRN IV For Anxiety 05/31/17 21:45 06/07/17 21:44 Morphine Sulfate (Morphine Sulfate) 4 mg EVERY 4 HOURS PRN IVP Severe Pain (Pain Scale 7-10) 05/31/17 21:45 06/07/17 21:44 Ondansetron HCl (Zofran) 4 mg Q6H PRN IVP Nausea & Vomiting 05/31/17 21:45 06/30/17 21:44 Piperacillin Sod/ Tazobactam Sod 3.375 gm/Sodium Chloride 110 ml @ 27.5 mls/hr Q8HR IVPB 06/01/17 14:00 06/08/17 00:00 06/02/17 06:07 Polyethylene Glycol (Miralax) 17 gm DAILYPRN PRN ORAL Constipation 05/31/17 21:45 06/30/17 21:44 Vancomycin HCl (Vanco rx to dose) 1 ea DAILY PRN MISC PER RX PROTOCOL 06/01/17 16:00 07/01/17 15:59 Vancomycin HCl 1 gm/Dextrose 275 ml @ 183.708 mls/hr Q12H IVPB 06/01/17 10:00 06/06/17 09:59 06/01/17 21:41 Lisy Lai M.D. Jun 02, 2017 09:15
--- NOTE | 2017-06-02 09:33 | Pulmonology Progress Note ---
Assessment/Plan Assessment/Plan ASSESSMENT leukocytosis possible sepsis possible UTI with hx of recurrent complicated UTI possible recurrent aspiration PNA VDRF/trach anemia dysphagia, G tube dilated sigmoid colon - likely chronic chronic encephalopathy hx of CVA with L hemiplegia hypothyroidism schizophrenia functional quadriplegia PLAN OF CARE LUIS status vent/trach care pulmonary toilet baseline ABG stable on current settings, keep settings as is and titrate as needed pulmonary toilet prn fup with CXR initial CXR with infrahilar atelectasis otherwise clear empiric abx, fup with cx , blood cx preliminary negative, sputum cx + GNB, urine cx +yeast, stool C dif negative ID follows aspiration precautions, GT feeding, monitor tolerance DVT GI prophylaxis Venous Duplex BLE negative monitor HH, transfuse prn , anemia w/up done on previous admission continue current dose of Levothyroxine, TSH [facility] Bowel regimen resume SNF meds wound protocol KUB - Dilated sigmoid colon, suspect that this is chronic, on a functional basis, as a prior CT scan of 2015 demonstrated a dilated stool-filled sigmoid of similar caliber without evidence of distal obstruction. However, particularly in light of the greater degree of distention as compared to the prior study, the possibility of distal obstruction cannot rule out. Diffusely gas-filled large and small bowel elsewhere, similar to but more extensive than on the previous study. Likewise, suspect on a chronic functional basis, but could also be related to distal obstruction there is present. Correlate with clinical findings, consider followup radiographs or CT scan as clinically indicated will repeat KUB in am tolerates GT feeding, no residuals , likely chronic dilation case discussed and evaluated by supervising physician Subjective Allergies: Coded Allergies: NO KNOWN DRUG ALLERGIES (Verified Allergy, Unknown, 09/11/16) Subjective leukocytosis trending down, afebrile no signs of respiratory distress on current settings Objective Last 24 Hour Vital Signs Date Time Temp Pulse Resp B/P (MAP) Pulse Ox O2 Delivery O2 Flow Rate FiO2 06/02/17 08:43 94 06/02/17 08:00 98.2 95 17 116/82 100 Mechanical Ventilator 35 06/02/17 08:00 35 06/02/17 07:15 85 15 35 06/02/17 05:12 75 18 35 06/02/17 04:00 90 06/02/17 04:00 35 06/02/17 03:55 96.5 87 20 139/79 100 Mechanical Ventilator 87 06/02/17 03:35 66 23 35 06/02/17 01:14 54 18 35 06/02/17 00:04 99.1 63 20 124/74 91 Room Air 62 06/02/17 00:00 35 06/01/17 23:50 89 18 35 06/01/17 23:37 94 06/01/17 21:00 98 17 35 06/01/17 20:05 98.1 93 20 113/64 100 Mechanical Ventilator 93 06/01/17 20:00 35 06/01/17 19:28 92 06/01/17 19:12 100 20 35 06/01/17 16:49 99 17 35 06/01/17 16:00 35 06/01/17 16:00 93 06/01/17 16:00 98.1 99 19 113/80 100 Mechanical Ventilator 35 06/01/17 15:15 92 17 35 06/01/17 12:56 97 20 35 06/01/17 12:00 98.2 99 17 128/81 100 Mechanical Ventilator 35 06/01/17 12:00 100 06/01/17 12:00 35 06/01/17 10:52 96 18 35 Objective General Appearance: cachetic, Vent AC 600-14-35% Lines, tubes and drains: peripheral, trach - Shiley #6, secretions moderate, yellow, thick HEENT: normocephalic, atraumatic, anicteric Respiratory/Chest: lungs clear with moderate air exchange , no respiratory distress Cardiovascular/Chest: normal rate, regular rhythm with SR on tele Abdomen: normal bowel sounds, non tender, soft with mild distention Neurologic: abnormal gait - bedridden , Left hemiplegia, responds to tactile stimuli but not verbal Musculoskeletal: atrophy of BLE, spastic BLE Microbiology Date/Time Source Procedure Growth Status 05/31/17 20:05 Blood Blood Culture - Preliminary NO GROWTH AFTER 24 HOURS Resulted 05/31/17 20:00 Blood Blood Culture - Preliminary NO GROWTH AFTER 24 HOURS Resulted 06/01/17 04:00 Sputum Gram Stain - Final Resulted 06/01/17 04:00 Sputum Culture - Preliminary Gram Negative Bacillus 1 Resulted 06/01/17 11:30 Stool Clostridium difficile Toxin Assay - Final Complete 05/31/17 20:39 Urine,Clean Catch Urine Culture - Preliminary YEAST Resulted Laboratory Tests 06/02/17 05:45: Sodium Level 137, Potassium Level 3.9, Chloride Level 101, Carbon Dioxide Level 26, Anion Gap 10, Blood Urea Nitrogen 14, Creatinine 0.7, Estimat Glomerular Filtration Rate > 60, Glucose Level 111H, Calcium Level 9.1, Thyroid Stimulating Hormone (TSH) 1.950 06/02/17 06:15: White Blood Count 14.9H, Red Blood Count 3.08L, Hemoglobin 8.5L, Hematocrit 26.1L, Mean Corpuscular Volume 85, Mean Corpuscular Hemoglobin 27.5, Mean Corpuscular Hemoglobin Concent 32.5, Red Cell Distribution Width 16.1H, Platelet Count 622H, Mean Platelet Volume 6.6, Neutrophils (%) (Auto) 58.1, Lymphocytes (%) (Auto) 11.9L, Monocytes (%) (Auto) 10.3H, Eosinophils (%) (Auto ) 19.1H, Basophils (%) (Auto) 0.6 Current Medications Medications (Trade) Dose Ordered Sig/Wanda Route PRN Reason Start Time Stop Time Status Last Admin Dose Admin Acetaminophen (Tylenol) 650 mg Q4H PRN ORAL FEVER 05/31/17 21:45 06/30/17 21:44 Albuterol/ Ipratropium (DuoNeb 0.5-3(2.5)mg/3ml) 3 ml EVERY 4 HOURS PRN HHN Shortness of Breath 05/31/17 21:45 06/05/17 21:44 Dextrose (Dextrose 50%) STAT PRN IV Hypoglycemia 05/31/17 21:45 06/30/17 21:44 Heparin Sodium (Porcine) (Heparin 5000 units/ml) 5,000 units EVERY 12 HOURS SUBQ 06/01/17 09:00 07/01/17 08:59 06/02/17 08:52 Lansoprazole (Prevacid) 30 mg DAILY GT 06/01/17 09:00 07/01/17 08:59 06/02/17 08:50 Levothyroxine Sodium (Synthroid) 50 mcg ACBREAKFAST GT 06/02/17 06:30 07/01/17 08:59 06/02/17 06:08 Lorazepam (Ativan 2mg/ml 1ml) 2 mg EVERY 2 HOURS PRN IV For Anxiety 05/31/17 21:45 06/07/17 21:44 Morphine Sulfate (Morphine Sulfate) 4 mg EVERY 4 HOURS PRN IVP Severe Pain (Pain Scale 7-10) 05/31/17 21:45 06/07/17 21:44 Ondansetron HCl (Zofran) 4 mg Q6H PRN IVP Nausea & Vomiting 05/31/17 21:45 06/30/17 21:44 Piperacillin Sod/ Tazobactam Sod 3.375 gm/Sodium Chloride 110 ml @ 27.5 mls/hr Q8HR IVPB 06/01/17 14:00 06/08/17 00:00 06/02/17 06:07 Polyethylene Glycol (Miralax) 17 gm DAILYPRN PRN ORAL Constipation 05/31/17 21:45 06/30/17 21:44 Vancomycin HCl (Vanco rx to dose) 1 ea DAILY PRN MISC PER RX PROTOCOL 06/01/17 16:00 07/01/17 15:59 Vancomycin HCl 1 gm/Dextrose 275 ml @ 183.708 mls/hr Q12H IVPB 06/01/17 10:00 06/06/17 09:59 06/01/17 21:41 Jose (Sher)Amina NP Jun 02, 2017 09:33
--- NOTE | 2017-06-02 09:35 | Diagnostic Imaging Report ---
Indication: Shortness of breath Technique: XRAY CHEST 1 V Comparison: 05/31/17 Findings: Tracheostomy is present. Cardiomediastinal silhouette is stable. Subsegmental atelectasis of the right base is again noted. No new infiltrates are seen. Osseous structures are stable. Gastrostomy projects over the left upper abdomen. Impression: No interval change from 05/31/17.
[2017-06-02] MEDS: Vancomycin 1gm/D5W 275ml IVPB SCH ×2 (10:00)
[2017-06-02] MEDS ORDERED: NS 275ml ONE (10:39)
[2017-06-02] MEDS ORDERED: 1/2 NS 1000ml IV ONE (10:39)
[2017-06-02] MEDS ORDERED: Tubing IV Secondary IV ONE (10:39)
[2017-06-02 12:00] VITALS: BP 145/81
[2017-06-02 16:00] VITALS: BP 128/71
[2017-06-02 20:00] VITALS: BP 118/75
[2017-06-03] VITALS: BP 143/67
[2017-06-03 04:00] VITALS: BP 139/71
[2017-06-03 05:24] LABS: MEAN CORPUSCULAR HEMOGLOBIN 27.3 PG (27.0-31.0); MEAN CORPUSCULAR HGB CONC 32.4 G/DL (32.0-36.0); MEAN CORPUSCULAR VOLUME 84 FL (80-99); MEAN PLATELET VOLUME 6.3 FL (6.5-10.1); PLATELET COUNT 593 K/UL (150-450); RED BLOOD COUNT 3.05 M/UL (4.70-6.10); RED CELL DISTRIBUTION WIDTH 15.8 % (11.6-14.8); WHITE BLOOD COUNT 11.4 K/UL (4.8-10.8)
[2017-06-03 05:34] LABS: ANION GAP 11 (5-15); CALCIUM 9.6 mg/dL (8.6-10.2); CARBON DIOXIDE 27 mEQ/L (20-30); CHLORIDE 108 mEQ/L (98-107); CREATININE 0.7 mg/dL (0.7-1.2); GLOMERULAR FILTRATION RATE > 60 mL/min (>60); HEMOLYSIS 0; POTASSIUM 3.9 mEQ/L (3.4-4.9); SODIUM 146 mEQ/L (135-145)
[2017-06-03] MEDS: Piperacillin/Tazobactam 3.375 GM in NS 110 ML IVPB SCH ×3 (06:03→22:12)
[2017-06-03 08:00] VITALS: BP 126/81
[2017-06-03 08:06] LABS: BAND NEUTROPHILS % (MANUAL) 2 % (0-8); BASOPHILS % (MANUAL) 0 % (0-2); EOSINOPHILS % (MANUAL) 22 % (0-3); LYMPHOCYTES % (MANUAL) 14 % (20-45); NEUTROPHILS % (MANUAL) 50 % (45-75); PLATELET ESTIMATE INCREASED; TOTAL CELLS COUNTED 100
[2017-06-03 08:32] LABS: PLATELET MORPHOLOGY NORMAL
[2017-06-03] MEDS ORDERED: Vancomycin 750mg/NS 250ml IVPB SCH (09:00)
[2017-06-03] MEDS: Heparin 5000 units/ml inj SUBQ SCH ×2 (09:00→20:30)
--- NOTE | 2017-06-03 09:25 | Diagnostic Imaging Report ---
Indication: Abdominal pain Technique: Supine views of the abdomen Comparison: 06/01/17 Findings: The sigmoid colon is again markedly distended and predominantly gas-filled. There is again moderate distention of the remaining colon with gas and stool. Small bowel loops are gas-filled but not obviously dilated. Gastrostomy is noted. Osseous structures are grossly stable. Atherosclerotic changes are seen. Impression: Redemonstration of markedly distended and predominantly gas-filled sigmoid colon. Moderate distention of the remaining colon with gas and stool. Differential considerations are unchanged. Please refer to the prior report.
--- NOTE | 2017-06-03 09:36 | Infectious Diseases Prog Note ---
Assessment/Plan Assessment/Plan A; Pneumonia, KPC & GNR MRSA colonization Scabies Fungal UTI VDRF P; Continue Zosyn Change Vancomycin to Tygacil Will f/u cultures Subjective ROS Limited/Unobtainable: Yes Allergies: Coded Allergies: NO KNOWN DRUG ALLERGIES (Verified Allergy, Unknown, 09/11/16) Objective Vital Signs Last 24 Hour Vital Signs Date Time Temp Pulse Resp B/P (MAP) Pulse Ox O2 Delivery O2 Flow Rate FiO2 06/03/17 09:20 87 16 35 06/03/17 08:00 98.1 85 14 126/81 100 Mechanical Ventilator 35 06/03/17 07:02 82 20 35 06/03/17 04:33 92 17 35 06/03/17 04:00 97.9 80 15 139/71 100 Mechanical Ventilator 35 06/03/17 04:00 35 06/03/17 03:30 97 06/03/17 02:41 85 18 35 06/03/17 01:15 93 23 35 06/03/17 00:00 98.5 76 17 143/67 100 Mechanical Ventilator 35 06/03/17 00:00 76 06/03/17 00:00 35 06/02/17 23:20 95 20 35 06/02/17 21:27 102 17 35 06/02/17 20:00 35 06/02/17 20:00 88 06/02/17 20:00 98.5 88 21 118/75 99 Mechanical Ventilator 35 06/02/17 19:03 101 18 35 06/02/17 17:25 105 21 35 06/02/17 16:00 100 06/02/17 16:00 35 06/02/17 16:00 97.8 91 18 128/71 98 Mechanical Ventilator 35 06/02/17 14:56 77 21 35 06/02/17 12:54 74 25 35 06/02/17 12:00 98.0 98 23 145/81 100 Mechanical Ventilator 35 06/02/17 12:00 90 06/02/17 12:00 35 06/02/17 11:14 87 26 35 06/02/17 10:44 89 19 35 Height (Feet): 5 Height (Inches): 6.00 Weight (Pounds): 138 General Appearance: no acute distress HEENT: status post trach Respiratory/Chest: decreased breath sounds, other - on ventilator Cardiovascular: normal rate Abdomen: soft, non tender, other - Gt feeding Extremities: no edema Neurologic/Psychiatric: unresponsiveness Microbiology Date/Time Source Procedure Growth Status 05/31/17 20:05 Blood Blood Culture - Preliminary NO GROWTH AFTER 48 HOURS Resulted 05/31/17 20:00 Blood Blood Culture - Preliminary NO GROWTH AFTER 48 HOURS Resulted 06/01/17 04:00 Sputum Gram Stain - Final Resulted 06/01/17 04:00 Sputum Culture - Preliminary K.pneumoniae Carbapenem Resist Gram Negative Bacillus 2 Resulted 06/01/17 11:30 Stool Clostridium difficile Toxin Assay - Final Complete 05/31/17 20:39 Urine,Clean Catch Urine Culture - Final Tea Tropicalis Complete Laboratory Tests Test 06/03/17 03:10 White Blood Count 11.4 K/UL (4.8-10.8) H Red Blood Count 3.05 M/UL (4.70-6.10) L Hemoglobin 8.3 G/DL (14.2-18.0) L Hematocrit 25.7 % (42.0-52.0) L Mean Corpuscular Volume 84 FL (80-99) Mean Corpuscular Hemoglobin 27.3 PG (27.0-31.0) Mean Corpuscular Hemoglobin Concent 32.4 G/DL (32.0-36.0) Red Cell Distribution Width 15.8 % (11.6-14.8) H Platelet Count 593 K/UL (150-450) H Mean Platelet Volume 6.3 FL (6.5-10.1) L Neutrophils (%) (Auto) % (45.0-75.0) Lymphocytes (%) (Auto) % (20.0-45.0) Monocytes (%) (Auto) % (1.0-10.0) Eosinophils (%) (Auto) % (0.0-3.0) Basophils (%) (Auto) % (0.0-2.0) Differential Total Cells Counted 100 Neutrophils % (Manual) 50 % (45-75) Lymphocytes % (Manual) 14 % (20-45) L Monocytes % (Manual) 12 % (1-10) H Eosinophils % (Manual) 22 % (0-3) H Basophils % (Manual) 0 % (0-2) Band Neutrophils 2 % (0-8) Platelet Estimate Increased H Platelet Morphology Normal Sodium Level 146 mEQ/L (135-145) H Potassium Level 3.9 mEQ/L (3.4-4.9) Chloride Level 108 mEQ/L (98-107) H Carbon Dioxide Level 27 mEQ/L (20-30) Anion Gap 11 (5-15) Blood Urea Nitrogen 16 mg/dL (7-23) Creatinine 0.7 mg/dL (0.7-1.2) Estimat Glomerular Filtration Rate > 60 mL/min (>60) Glucose Level 126 mg/dL (74-106) H Calcium Level 9.6 mg/dL (8.6-10.2) Current Medications Medications (Trade) Dose Ordered Sig/Wanda Route PRN Reason Start Time Stop Time Status Last Admin Dose Admin Acetaminophen (Tylenol) 650 mg Q4H PRN ORAL FEVER 05/31/17 21:45 06/30/17 21:44 Albuterol/ Ipratropium (DuoNeb 0.5-3(2.5)mg/3ml) 3 ml EVERY 4 HOURS PRN HHN Shortness of Breath 05/31/17 21:45 06/05/17 21:44 Dextrose (Dextrose 50%) STAT PRN IV Hypoglycemia 05/31/17 21:45 06/30/17 21:44 Heparin Sodium (Porcine) (Heparin 5000 units/ml) 5,000 units EVERY 12 HOURS SUBQ 06/01/17 09:00 07/01/17 08:59 06/02/17 21:33 Lansoprazole (Prevacid) 30 mg DAILY GT 06/01/17 09:00 07/01/17 08:59 06/02/17 08:50 Levothyroxine Sodium (Synthroid) 50 mcg ACBREAKFAST GT 06/02/17 06:30 07/01/17 08:59 06/03/17 06:03 Lorazepam (Ativan 2mg/ml 1ml) 2 mg EVERY 2 HOURS PRN IV For Anxiety 05/31/17 21:45 06/07/17 21:44 Morphine Sulfate (Morphine Sulfate) 4 mg EVERY 4 HOURS PRN IVP Severe Pain (Pain Scale 7-10) 05/31/17 21:45 06/07/17 21:44 Ondansetron HCl (Zofran) 4 mg Q6H PRN IVP Nausea & Vomiting 05/31/17 21:45 06/30/17 21:44 Piperacillin Sod/ Tazobactam Sod 3.375 gm/Sodium Chloride 110 ml @ 27.5 mls/hr Q8HR IVPB 06/01/17 14:00 06/08/17 00:00 06/03/17 06:03 Polyethylene Glycol (Miralax) 17 gm DAILYPRN PRN ORAL Constipation 05/31/17 21:45 06/30/17 21:44 Vancomycin HCl (Vanco rx to dose) 1 ea DAILY PRN MISC PER RX PROTOCOL 06/01/17 16:00 07/01/17 15:59 Vancomycin/Sodium Chloride 250 ml @ 166.667 mls/hr Q12HR IVPB 06/03/17 09:00 06/08/17 08:59 SHANNA BERRY Jun 03, 2017 09:36
--- NOTE | 2017-06-03 09:36 | Pulmonology Progress Note ---
Assessment/Plan Assessment/Plan ASSESSMENT leukocytosis possible sepsis possible UTI with hx of recurrent complicated UTI possible recurrent aspiration PNA /KPC VDRF/trach anemia dysphagia, G tube dilated sigmoid colon - likely chronic chronic encephalopathy hx of CVA with L hemiplegia hypothyroidism schizophrenia functional quadriplegia PLAN OF CARE LUIS status vent/trach care pulmonary toilet baseline ABG stable on current settings, keep settings as is and titrate as needed pulmonary toilet prn fup with CXR initial CXR with infrahilar atelectasis otherwise clear empiric abx, fup with cx , blood cx preliminary negative, sputum cx + KPC, GNB, urine cx +yeast, stool C dif negative ID follows s/p Rx 06/02 for possible scabies aspiration precautions, GT feeding, monitor tolerance DVT GI prophylaxis Venous Duplex BLE negative monitor HH, transfuse prn , anemia w/up done on previous admission continue current dose of Levothyroxine, TSH [facility] Bowel regimen resume SNF meds wound protocol KUB - Dilated sigmoid colon, suspect that this is chronic, on a functional basis, as a prior CT scan of 2015 demonstrated a dilated stool-filled sigmoid of similar caliber without evidence of distal obstruction. However, particularly in light of the greater degree of distention as compared to the prior study, the possibility of distal obstruction cannot rule out. Diffusely gas-filled large and small bowel elsewhere, similar to but more extensive than on the previous study. Likewise, suspect on a chronic functional basis, but could also be related to distal obstruction there is present. Correlate with clinical findings, consider followup radiographs or CT scan as clinically indicated repeated KUB this am -Remonstration of markedly distended and predominantly gas-filled sigmoid colon. Moderate distention of the remaining colon with gas and stool. GI consult fro abdominal distention tolerates GT feeding, no residuals , likely chronic dilation case discussed and evaluated by supervising physician Subjective Allergies: Coded Allergies: NO KNOWN DRUG ALLERGIES (Verified Allergy, Unknown, 09/11/16) Subjective leukocytosis trending down, afebrile no signs of respiratory distress on current settings Objective Last 24 Hour Vital Signs Date Time Temp Pulse Resp B/P (MAP) Pulse Ox O2 Delivery O2 Flow Rate FiO2 06/03/17 09:20 87 16 35 06/03/17 08:00 98.1 85 14 126/81 100 Mechanical Ventilator 35 06/03/17 07:02 82 20 35 06/03/17 04:33 92 17 35 06/03/17 04:00 97.9 80 15 139/71 100 Mechanical Ventilator 35 06/03/17 04:00 35 06/03/17 03:30 97 06/03/17 02:41 85 18 35 06/03/17 01:15 93 23 35 06/03/17 00:00 98.5 76 17 143/67 100 Mechanical Ventilator 35 06/03/17 00:00 76 06/03/17 00:00 35 06/02/17 23:20 95 20 35 06/02/17 21:27 102 17 35 06/02/17 20:00 35 06/02/17 20:00 88 06/02/17 20:00 98.5 88 21 118/75 99 Mechanical Ventilator 35 06/02/17 19:03 101 18 35 06/02/17 17:25 105 21 35 06/02/17 16:00 100 06/02/17 16:00 35 06/02/17 16:00 97.8 91 18 128/71 98 Mechanical Ventilator 35 06/02/17 14:56 77 21 35 06/02/17 12:54 74 25 35 06/02/17 12:00 98.0 98 23 145/81 100 Mechanical Ventilator 35 06/02/17 12:00 90 06/02/17 12:00 35 06/02/17 11:14 87 26 35 06/02/17 10:44 89 19 35 Objective General Appearance: cachetic, Vent AC 600-14-35% Lines, tubes and drains: peripheral, trach - Shiley #6, secretions moderate, yellow, thick HEENT: normocephalic, atraumatic, anicteric Respiratory/Chest: lungs clear with moderate air exchange , no respiratory distress Cardiovascular/Chest: normal rate, regular rhythm with SR on tele Abdomen: normal bowel sounds, non tender, soft with mild distention Neurologic: abnormal gait - bedridden , Left hemiplegia, responds to tactile stimuli but not verbal Musculoskeletal: atrophy of BLE, spastic BLE Microbiology Date/Time Source Procedure Growth Status 05/31/17 20:05 Blood Blood Culture - Preliminary NO GROWTH AFTER 48 HOURS Resulted 05/31/17 20:00 Blood Blood Culture - Preliminary NO GROWTH AFTER 48 HOURS Resulted 06/01/17 04:00 Sputum Gram Stain - Final Resulted 06/01/17 04:00 Sputum Culture - Preliminary K.pneumoniae Carbapenem Resist Gram Negative Bacillus 2 Resulted 06/01/17 11:30 Stool Clostridium difficile Toxin Assay - Final Complete 05/31/17 20:39 Urine,Clean Catch Urine Culture - Final Tea Tropicalis Complete Laboratory Tests 06/03/17 03:10: White Blood Count 11.4H, Red Blood Count 3.05L, Hemoglobin 8.3L, Hematocrit 25.7L, Mean Corpuscular Volume 84, Mean Corpuscular Hemoglobin 27.3, Mean Corpuscular Hemoglobin Concent 32.4, Red Cell Distribution Width 15.8H, Platelet Count 593H, Mean Platelet Volume 6.3L, Neutrophils (%) (Auto) , Lymphocytes (%) (Auto) , Monocytes (%) (Auto) , Eosinophils (%) (Auto) , Basophils (%) (Auto) , Differential Total Cells Counted 100, Neutrophils % ( Manual) 50, Lymphocytes % (Manual) 14L, Monocytes % (Manual) 12H, Eosinophils % (Manual) 22H, Basophils % (Manual) 0, Band Neutrophils 2, Platelet Estimate IncreasedH, Platelet Morphology Normal, Sodium Level 146H, Potassium Level 3.9, Chloride Level 108H, Carbon Dioxide Level 27, Anion Gap 11, Blood Urea Nitrogen 16, Creatinine 0.7, Estimat Glomerular Filtration Rate > 60, Glucose Level 126H , Calcium Level 9.6 Current Medications Medications (Trade) Dose Ordered Sig/Wanda Route PRN Reason Start Time Stop Time Status Last Admin Dose Admin Acetaminophen (Tylenol) 650 mg Q4H PRN ORAL FEVER 05/31/17 21:45 06/30/17 21:44 Albuterol/ Ipratropium (DuoNeb 0.5-3(2.5)mg/3ml) 3 ml EVERY 4 HOURS PRN HHN Shortness of Breath 05/31/17 21:45 06/05/17 21:44 Dextrose (Dextrose 50%) STAT PRN IV Hypoglycemia 05/31/17 21:45 06/30/17 21:44 Heparin Sodium (Porcine) (Heparin 5000 units/ml) 5,000 units EVERY 12 HOURS SUBQ 06/01/17 09:00 07/01/17 08:59 06/02/17 21:33 Lansoprazole (Prevacid) 30 mg DAILY GT 06/01/17 09:00 07/01/17 08:59 06/02/17 08:50 Levothyroxine Sodium (Synthroid) 50 mcg ACBREAKFAST GT 06/02/17 06:30 07/01/17 08:59 06/03/17 06:03 Lorazepam (Ativan 2mg/ml 1ml) 2 mg EVERY 2 HOURS PRN IV For Anxiety 05/31/17 21:45 06/07/17 21:44 Morphine Sulfate (Morphine Sulfate) 4 mg EVERY 4 HOURS PRN IVP Severe Pain (Pain Scale 7-10) 05/31/17 21:45 06/07/17 21:44 Ondansetron HCl (Zofran) 4 mg Q6H PRN IVP Nausea & Vomiting 05/31/17 21:45 06/30/17 21:44 Piperacillin Sod/ Tazobactam Sod 3.375 gm/Sodium Chloride 110 ml @ 27.5 mls/hr Q8HR IVPB 06/01/17 14:00 06/08/17 00:00 06/03/17 06:03 Polyethylene Glycol (Miralax) 17 gm DAILYPRN PRN ORAL Constipation 05/31/17 21:45 06/30/17 21:44 Vancomycin HCl (Vanco rx to dose) 1 ea DAILY PRN MISC PER RX PROTOCOL 06/01/17 16:00 07/01/17 15:59 Vancomycin/Sodium Chloride 250 ml @ 166.667 mls/hr Q12HR IVPB 06/03/17 09:00 06/08/17 08:59 Amina Garcia NP (Vanchtein) Jun 03, 2017 09:36
[2017-06-03] MEDS ORDERED: Tigecycline 100 MG in D5W 110 ML IVPB ONE (10:30)
[2017-06-03 12:00] VITALS: BP 134/65
--- NOTE | 2017-06-03 14:47 | Cardiology Report ---
APPROVED REPORT EKG Measurement Heart [id number] Normal sinus rhythm Normal ECG
[2017-06-03 16:00] VITALS: BP 139/77
[2017-06-03 20:27] VITALS: BP 100/65
[2017-06-03] MEDS: Tigecycline 50 MG in D5W 110 ML IVPB SCH (20:30)
[2017-06-04 00:21] VITALS: BP 126/76
[2017-06-04] MEDS: LORazepam Inj 2mg/ml 1ml IV PRN (00:32)
[2017-06-04 04:00] VITALS: BP 147/107
[2017-06-04 05:33] LABS: BASOPHILS % (AUTO) 0.5 % (0.0-2.0); EOSINOPHILS % (AUTO) 17.5 % (0.0-3.0); LYMPHOCYTES % (AUTO) 16.1 % (20.0-45.0); MEAN CORPUSCULAR HEMOGLOBIN 26.6 PG (27.0-31.0); MEAN CORPUSCULAR VOLUME 86 FL (80-99); MEAN PLATELET VOLUME 6.3 FL (6.5-10.1); MONOCYTES % (AUTO) 8.8 % (1.0-10.0); NEUTROPHILS % (AUTO) 57.2 % (45.0-75.0); PLATELET COUNT 667 K/UL (150-450); RED BLOOD COUNT 3.17 M/UL (4.70-6.10); RED CELL DISTRIBUTION WIDTH 16.1 % (11.6-14.8); WHITE BLOOD COUNT 15.7 K/UL (4.8-10.8)
[2017-06-04 05:47] LABS: ANION GAP 13 (5-15); CALCIUM 9.4 mg/dL (8.6-10.2); CARBON DIOXIDE 25 mEQ/L (20-30); CHLORIDE 107 mEQ/L (98-107); CREATININE 0.7 mg/dL (0.7-1.2); GLOMERULAR FILTRATION RATE > 60 mL/min (>60); HEMOLYSIS 22; POTASSIUM 3.7 mEQ/L (3.4-4.9); SODIUM 145 mEQ/L (135-145)
[2017-06-04] MEDS: Piperacillin/Tazobactam 3.375 GM in NS 110 ML IVPB SCH (05:58)
[2017-06-04 08:00] VITALS: BP 131/58
[2017-06-04] MEDS: Tigecycline 50 MG in D5W 110 ML IVPB SCH ×2 (09:16→20:42)
[2017-06-04] MEDS: Heparin 5000 units/ml inj SUBQ SCH (09:17)
--- NOTE | 2017-06-04 10:56 | Diagnostic Imaging Report ---
Indication: SOB Technique: One view of the chest Comparison: 06/02/2017 Findings: Tracheostomy is again demonstrated. Better inspiration on the current exam. The lungs and pleural spaces are currently clear. Previously demonstrated right infrahilar atelectasis is no longer evident. The heart size is normal. Impression: No acute process
--- NOTE | 2017-06-04 11:16 | GI Initial Consult Note ---
History of Present Illness General Date patient seen: Jun 04, 2017 Time patient seen: 11:15 Reason for Hospitalization: Abnormal Labs Referring physician: MIKAYLA BANG Reason for Consultation: ANEMIA Present Illness HPI 66YOM sent from [facility] with abnormal labs leuks 19K. Hn/Hct 7.5/23.9 Vitals stable Trach/vent patient asymptomatic Limited HPI Per EMR VDRF/tracheostomy, dysphagia, G tube, HTN, hx of CVA, seizure disorder, hypothyroidism, dementia, chronic encephalopathy, severe esophagitis GI Consult. HPI as noted above. GI consulted for anemia/GT management. ROS limited. Pt is known to me prior multiple admissions for episodes of coffee ground emesis s/p multiple EGD with dx of severe esophagitis in the past. Patient presents today with leukocytosis and distended sigmoid colon per KUB. Home Meds Active Scripts Meropenem-0.9% Sodium Chloride (Meropenem-0.9% NaCl 1 Gram/50) 1 Gm/50 Ml Piggyback, 1 GM IV EVERY 8 HOURS for 10 Days, BAG Prov:MIKAYLA WILLOUGHBY 04/27/17 Colistimethate Sodium (Colistin) 150 Mg Vial, 75 MG INH Q12HR@10,22 for 10 Days , VIAL Prov:MIKAYLA WILLOUGHBY 04/27/17 Znzqvvvgsnzk-Wvkf-Pvppdknk,Iso (ZOSYN 3.375 GM PRE MIX-BAG) 3.375 Gm/50 Ml Froz.piggy, 3.375 GM IVPB EVERY 8 HOURS for 2 Days, BAG Prov:JONO WILLOUGHBYALI 04/06/17 Amlodipine Besylate (Norvasc) 2.5 Mg Tab, 2.5 MG ORAL DAILY, #30 TAB Prov:Amina Garcia (Vanchtein) [employer] 01/24/16 Ipratropium/Albuterol Sulfate (DuoNeb 0.5-3(2.5)mg/3ml) 3 Ml Ampul.neb, 3 ML HHN Q4H Y for Shortness of Breath, #20 EA Prov:Amina Garcia (Vanchtein) [employer] 12/25/15 Reported Medications Bisacodyl (DULCOLAX) 10 Mg Supp.rect, 10 MG RC NEEDED Y for Constipation, SUPP 06/01/17 Magnesium Hydroxide* (MILK OF MAGNESIA*) 400 Mg/5 Ml Oral.susp, 30 ML GT HS for Constipation, ML 06/01/17 [triamcinolone cream] No Conflict Check, 0.1 % TOPIC BID 06/01/17 Vancomycin Hcl/D5w (VANCOMYCIN-D5W 1 G/250 ML) 1 Gm/250 Ml Plast..bag, 750 GM IVPB Q12HR, BAG 06/01/17 Trimethoprim/Sulfamethoxazole 160/800* (BACTRIM DS TABLET*) 1 Each Tablet, 1 TAB GT BID for 7 Days, TAB 06/01/17 Cran/Vitc/Mannose/Inulin/Brom (UTI-STAT LIQUID) 3,875 Mg/30 Ml Liquid, 3875 MG PO, ML 04/14/17 Docusate Sodium* (DOCUSATE SODIUM*) 100 Mg Capsule, 100 MG GT TWICE A DAY, CAP 04/14/17 Protein Supplement (PROMOD) 946 Ml Liquid, 30 ML GT DAILY, ML 04/14/17 Zinc Sulfate (ZINC SULFATE*) 220 Mg Capsule, 220 MG ORAL DAILY, CAP 0 Refills 04/14/17 Ascorbic Acid* (VITAMIN C*) 500 Mg Tablet, 500 MG GT DAILY, #30 TAB 0 Refills 04/14/17 Multivitamin Liquid* (MULTI-DELYN*) 237 Ml Liquid, 15 ML GT DAILY, ML 04/14/17 Ferrous Sulfate (Ferrous Sulfate) 300 Mg/5 Ml Liquid, 7.5 ML NG TWICE A DAY, # 473 ML 0 Refills 04/14/17 Sucralfate* (CARAFATE*) 1 Gm Tablet, 1 GM GT FOUR TIMES A DAY, TAB 03/03/16 Acetaminophen (Acetaminophen) 650 Mg/20.3 Ml Soln, 640 MG GT Q4HR Y for Prn Headache/Temp > 101, ML 0 Refills 01/19/16 Folic Acid* (FOLIC ACID*) 1 Mg Tablet, 1 MG GT DAILY, TAB 09/10/14 Famotidine (FAMOTIDINE) 20 Mg Tablet, 20 MG GT DAILY, #60 TAB 0 Refills 09/10/14 Levothyroxine Sodium* (LEVOTHYROXINE SODIUM*) 50 Mcg Tablet, 50 MCG GT DAILY, TAB Take in the morning on an empty stomach, at least 30 minutes before food. 09/10/14 Med list reviewed/reconciled: Yes Allergies: Coded Allergies: NO KNOWN DRUG ALLERGIES (Verified Allergy, Unknown, 1/2/17) Patient History PMH Narrative Past Medical History: other - See hpi Past Surgical History: other - Trach Pertinent Family History: none Social History: Denies: smoking, alcohol use, drug use Immunizations: UTD Reviewed Nursing Documentation: PMH: Agreed, PSxH: Agreed Nursing Documentation-PMH Hx Cardiac Problems: Yes Hx Hypertension: Yes Hx Asthma: Yes Hx COPD: No Hx Diabetes: Yes Hx Cancer: No Hx Gastrointestinal Problems: Yes - Gtube Hx Neurological Problems: Yes Hx Cerebrovascular Accident: Yes Hx Transient Ischemic Attacks: Yes Hx Dementia: Yes Hx Parkinson's Disease: Yes Hx Encephalitis: Yes Hx Seizures: Yes Hx Epilepsy: Yes Hx Paralysis: Yes - HEMIPLEGIA Hx Concentration Difficulty: Yes Hx Speech Problem: Yes Hx Aphasia: Yes Hx Weakness: Yes Hx Fatigue: Yes Hx Neurologic Surgery: No Hx Brain Shunt: No Review of Systems All Other Systems: limited Physical Exam Vital Signs Date Time Temp Pulse Resp B/P (MAP) Pulse Ox O2 Delivery O2 Flow Rate FiO2 05/31/17 19:07 96.6 95 20 122/74 100 Mechanical Ventilator 35 Sp02 EP Interpretation: reviewed Labs Laboratory Tests Test 06/04/17 03:30 White Blood Count 15.7 K/UL (4.8-10.8) H Red Blood Count 3.17 M/UL (4.70-6.10) L Hemoglobin 8.4 G/DL (14.2-18.0) L Hematocrit 27.1 % (42.0-52.0) L Mean Corpuscular Volume 86 FL (80-99) Mean Corpuscular Hemoglobin 26.6 PG (27.0-31.0) L Mean Corpuscular Hemoglobin Concent 31.0 G/DL (32.0-36.0) L Red Cell Distribution Width 16.1 % (11.6-14.8) H Platelet Count 667 K/UL (150-450) H Mean Platelet Volume 6.3 FL (6.5-10.1) L Neutrophils (%) (Auto) 57.2 % (45.0-75.0) Lymphocytes (%) (Auto) 16.1 % (20.0-45.0) L Monocytes (%) (Auto) 8.8 % (1.0-10.0) Eosinophils (%) (Auto) 17.5 % (0.0-3.0) H Basophils (%) (Auto) 0.5 % (0.0-2.0) Sodium Level 145 mEQ/L (135-145) Potassium Level 3.7 mEQ/L (3.4-4.9) Chloride Level 107 mEQ/L (98-107) Carbon Dioxide Level 25 mEQ/L (20-30) Anion Gap 13 (5-15) Blood Urea Nitrogen 26 mg/dL (7-23) H Creatinine 0.7 mg/dL (0.7-1.2) Estimat Glomerular Filtration Rate > 60 mL/min (>60) Glucose Level 87 mg/dL (74-106) Calcium Level 9.4 mg/dL (8.6-10.2) General Appearance: no apparent distress, alert, thin Head: normocephalic EENT: normal ENT inspection Neck: supple Respiratory: other Cardiovascular: normal rate Gastrointestinal: gt - c/d/i Rectal: deferred Neurologic: alert Skin: normal color, no rash, warm/dry Lymphatic: normal inspection, no adenopathy Current Medications Current Medications Medications (Trade) Dose Ordered Sig/Wanda Route PRN Reason Start Time Stop Time Status Last Admin Dose Admin Acetaminophen (Tylenol) 650 mg Q4H PRN ORAL FEVER 05/31/17 21:45 06/30/17 21:44 Albuterol/ Ipratropium (DuoNeb 0.5-3(2.5)mg/3ml) 3 ml EVERY 4 HOURS PRN HHN Shortness of Breath 05/31/17 21:45 06/05/17 21:44 Dextrose (Dextrose 50%) STAT PRN IV Hypoglycemia 05/31/17 21:45 06/30/17 21:44 Heparin Sodium (Porcine) (Heparin 5000 units/ml) 5,000 units EVERY 12 HOURS SUBQ 06/01/17 09:00 07/01/17 08:59 06/04/17 09:17 Lansoprazole (Prevacid) 30 mg DAILY GT 06/01/17 09:00 07/01/17 08:59 06/04/17 09:15 Levothyroxine Sodium (Synthroid) 50 mcg ACBREAKFAST GT 06/02/17 06:30 07/01/17 08:59 06/04/17 05:59 Lorazepam (Ativan 2mg/ml 1ml) 2 mg EVERY 2 HOURS PRN IV For Anxiety 05/31/17 21:45 06/07/17 21:44 06/04/17 00:32 Morphine Sulfate (Morphine Sulfate) 4 mg EVERY 4 HOURS PRN IVP Severe Pain (Pain Scale 7-10) 05/31/17 21:45 06/07/17 21:44 Ondansetron HCl (Zofran) 4 mg Q6H PRN IVP Nausea & Vomiting 05/31/17 21:45 06/30/17 21:44 Piperacillin Sod/ Tazobactam Sod 3.375 gm/Sodium Chloride 110 ml @ 27.5 mls/hr Q8HR IVPB 06/01/17 14:00 06/08/17 00:00 06/04/17 05:58 Polyethylene Glycol (Miralax) 17 gm DAILYPRN PRN ORAL Constipation 05/31/17 21:45 06/30/17 21:44 Tigecycline 50 mg/ Dextrose 110 ml @ 220 mls/hr EVERY 12 HOURS IVPB 06/03/17 21:00 06/10/17 20:59 06/04/17 09:16 GI: Plan Problems: (1) Gastrostomy tube dependent (2) Protein-calorie malnutrition, severe (3) Feeding by G-tube (4) Anemia (5) Esophagitis (6) Constipation Plan defer GI procedures given known severe esophagitis and stable H&H supportive care start GTFs per dietary fu iron panel given history of deficiency stable H&H, prn transfusions cont ppi GT, add carafate bowel regime >> colace + miralax reflux measures fu labs Discussed with Dr. Wilson. Arabella Quesada N.P. Jun 04, 2017 11:16
--- NOTE | 2017-06-04 11:27 | Infectious Diseases Prog Note ---
Assessment/Plan Assessment/Plan ASSESSMENT:# . Possible recurrent aspiration pneumonia or healthcare-associated pneumonia. Sputum : ACB and KPC Chest x-ray shows right infrahilar atelectasis and otherwise no acute process. #Possible recurrent urinary tract infection. Urine culture is growign yeast so far (colonizer) # Possible recurrent sepsis. #Leukocytosis ; improving #Rash-possible scabies, SP Rx # History of recurrent upper gastrointestinal bleeding and erosive esophagitis with a decrease in hemoglobin from previous. # Chronic ventilator-dependent respiratory failure, status post percutaneous endoscopic gastrostomy tube placement with multiple revisions and replacements. # Chronic encephalopathy/dementia. # Thrombocytosis. #. assisted resident. #. Functional quadriplegia/bedbound. # Frequent hospital readmissions. # Multidrug-resistant organism colonized including methicillin-resistant Staphylococcus aureus, vancomycin resistant Enterococcus, Klebsiella pneumoniae carbapenemase, and multidrug-resistant Acinetobacter. # No known drug allergies. #. Full Code. PLAN: -. Continue Tygacil, colistin INH and Merrem d # - SP RX for possible scabies - Monitor CBC and temperatures. -. Monitor BMP. - Monitor chest x-ray. - Ventilator support, tracheostomy care, and aspiration precautions. - Contact precautions Subjective Constitutional: Denies: no symptoms, fever, chills, fatigue, anorexia, drenching sweats, other Allergies: Coded Allergies: NO KNOWN DRUG ALLERGIES (Verified Allergy, Unknown, 09/11/16) Objective Vital Signs Last 24 Hour Vital Signs Date Time Temp Pulse Resp B/P (MAP) Pulse Ox O2 Delivery O2 Flow Rate FiO2 06/04/17 08:35 106 18 35 06/04/17 08:00 98.2 99 18 131/58 100 Mechanical Ventilator 35 06/04/17 08:00 35 06/04/17 07:34 105 06/04/17 07:19 104 19 35 06/04/17 05:04 102 26 35 06/04/17 04:00 100 06/04/17 04:00 35 06/04/17 04:00 97.4 100 23 147/107 100 Mechanical Ventilator 35 06/04/17 02:52 107 20 35 06/04/17 01:30 93 17 35 06/04/17 00:21 98.2 85 14 126/76 100 Mechanical Ventilator 35 06/04/17 00:00 77 06/03/17 23:22 78 16 35 06/03/17 21:29 82 16 35 06/03/17 20:27 98.3 82 14 100/65 100 Mechanical Ventilator 35 06/03/17 20:00 71 06/03/17 20:00 35 06/03/17 19:30 79 14 35 06/03/17 17:00 85 16 35 06/03/17 16:00 35 06/03/17 16:00 87 06/03/17 16:00 98.5 80 20 139/77 100 Mechanical Ventilator 100 06/03/17 15:18 82 16 35 06/03/17 13:23 85 16 35 06/03/17 12:00 35 06/03/17 12:00 77 06/03/17 12:00 98.1 75 21 134/65 99 Mechanical Ventilator 35 06/03/17 11:29 78 16 35 Height (Feet): 5 Height (Inches): 6.00 Weight (Pounds): 138 HEENT: anicteric Respiratory/Chest: normal breath sounds Cardiovascular: no gallop/murmur Abdomen: no organomegaly Microbiology Date/Time Source Procedure Growth Status 06/01/17 11:30 Stool Clostridium difficile Toxin Assay - Final Complete Laboratory Tests Test 06/04/17 03:30 White Blood Count 15.7 K/UL (4.8-10.8) H Red Blood Count 3.17 M/UL (4.70-6.10) L Hemoglobin 8.4 G/DL (14.2-18.0) L Hematocrit 27.1 % (42.0-52.0) L Mean Corpuscular Volume 86 FL (80-99) Mean Corpuscular Hemoglobin 26.6 PG (27.0-31.0) L Mean Corpuscular Hemoglobin Concent 31.0 G/DL (32.0-36.0) L Red Cell Distribution Width 16.1 % (11.6-14.8) H Platelet Count 667 K/UL (150-450) H Mean Platelet Volume 6.3 FL (6.5-10.1) L Neutrophils (%) (Auto) 57.2 % (45.0-75.0) Lymphocytes (%) (Auto) 16.1 % (20.0-45.0) L Monocytes (%) (Auto) 8.8 % (1.0-10.0) Eosinophils (%) (Auto) 17.5 % (0.0-3.0) H Basophils (%) (Auto) 0.5 % (0.0-2.0) Sodium Level 145 mEQ/L (135-145) Potassium Level 3.7 mEQ/L (3.4-4.9) Chloride Level 107 mEQ/L (98-107) Carbon Dioxide Level 25 mEQ/L (20-30) Anion Gap 13 (5-15) Blood Urea Nitrogen 26 mg/dL (7-23) H Creatinine 0.7 mg/dL (0.7-1.2) Estimat Glomerular Filtration Rate > 60 mL/min (>60) Glucose Level 87 mg/dL (74-106) Calcium Level 9.4 mg/dL (8.6-10.2) Current Medications Medications (Trade) Dose Ordered Sig/Wanda Route PRN Reason Start Time Stop Time Status Last Admin Dose Admin Acetaminophen (Tylenol) 650 mg Q4H PRN ORAL FEVER 05/31/17 21:45 06/30/17 21:44 Albuterol/ Ipratropium (DuoNeb 0.5-3(2.5)mg/3ml) 3 ml EVERY 4 HOURS PRN HHN Shortness of Breath 05/31/17 21:45 06/05/17 21:44 Colistimethate Sodium (Colistin *inhalation use only*) 150 mg Q12HR@ INH 06/04/17 22:00 06/11/17 21:59 UNV Dextrose (Dextrose 50%) STAT PRN IV Hypoglycemia 05/31/17 21:45 06/30/17 21:44 Heparin Sodium (Porcine) (Heparin 5000 units/ml) 5,000 units EVERY 12 HOURS SUBQ 06/01/17 09:00 07/01/17 08:59 06/04/17 09:17 Lansoprazole (Prevacid) 30 mg DAILY GT 06/01/17 09:00 07/01/17 08:59 06/04/17 09:15 Levothyroxine Sodium (Synthroid) 50 mcg ACBREAKFAST GT 06/02/17 06:30 07/01/17 08:59 06/04/17 05:59 Lorazepam (Ativan 2mg/ml 1ml) 2 mg EVERY 2 HOURS PRN IV For Anxiety 05/31/17 21:45 06/07/17 21:44 06/04/17 00:32 Meropenem 1 gm/ Sodium Chloride 110 ml @ 220 mls/hr Q8HR IVPB 06/04/17 14:00 06/09/17 13:59 UNV Morphine Sulfate (Morphine Sulfate) 4 mg EVERY 4 HOURS PRN IVP Severe Pain (Pain Scale 7-10) 05/31/17 21:45 06/07/17 21:44 Ondansetron HCl (Zofran) 4 mg Q6H PRN IVP Nausea & Vomiting 05/31/17 21:45 06/30/17 21:44 Polyethylene Glycol (Miralax) 17 gm DAILYPRN PRN ORAL Constipation 05/31/17 21:45 06/30/17 21:44 Tigecycline 50 mg/ Dextrose 110 ml @ 220 mls/hr EVERY 12 HOURS IVPB 06/03/17 21:00 06/10/17 20:59 06/04/17 09:16 GLYNN BURGOS M.D. Jun 04, 2017 11:27
[2017-06-04 12:00] VITALS: BP 118/76
[2017-06-04] MEDS: Colistin for inhalation INH SCH (12:00)
--- NOTE | 2017-06-04 12:09 | Pulmonology Progress Note ---
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, 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 with: consultants, case filler Subjective ROS Limited/Unobtainable: Yes Constitutional: Reports: no symptoms HEENT: Repors: no symptoms Respiratory: Reports: no symptoms Allergies: Coded Allergies: NO KNOWN DRUG ALLERGIES (Verified Allergy, Unknown, 09/11/16) Objective Last 24 Hour Vital Signs Date Time Temp Pulse Resp B/P (MAP) Pulse Ox O2 Delivery O2 Flow Rate FiO2 06/04/17 11:32 100 18 35 06/04/17 08:35 106 18 35 06/04/17 08:00 98.2 99 18 131/58 100 Mechanical Ventilator 35 06/04/17 08:00 35 06/04/17 07:34 105 06/04/17 07:19 104 19 35 06/04/17 05:04 102 26 35 06/04/17 04:00 100 06/04/17 04:00 35 06/04/17 04:00 97.4 100 23 147/107 100 Mechanical Ventilator 35 06/04/17 02:52 107 20 35 06/04/17 01:30 93 17 35 06/04/17 00:21 98.2 85 14 126/76 100 Mechanical Ventilator 35 06/04/17 00:00 77 06/03/17 23:22 78 16 35 06/03/17 21:29 82 16 35 06/03/17 20:27 98.3 82 14 100/65 100 Mechanical Ventilator 35 06/03/17 20:00 71 06/03/17 20:00 35 06/03/17 19:30 79 14 35 06/03/17 17:00 85 16 35 06/03/17 16:00 35 9/24/17 16:00 87 06/03/17 16:00 98.5 80 20 139/77 100 Mechanical Ventilator 100 06/03/17 15:18 82 16 35 06/03/17 13:23 85 16 35 Intake and Output 06/04/17 06/05/17 19:00 07:00 Intake Total 475.0 ml Balance 475.0 ml IV Total 165.0 ml Tube Feeding 260 ml Other 50 ml General Appearance: cachetic HEENT: normocephalic, atraumatic Respiratory/Chest: chest wall non-tender, lungs clear Cardiovascular: normal peripheral pulses, normal rate Abdomen: normal bowel sounds, soft, non tender Extremities: no cyanosis, no clubbing 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, no motor/sensory deficits, normal mood/affect Lymphatic: no neck adenopathy Laboratory Tests 06/04/17 03:30: White Blood Count 15.7H, Red Blood Count 3.17L, Hemoglobin 8.4L, Hematocrit 27.1L, Mean Corpuscular Volume 86, Mean Corpuscular Hemoglobin 26.6L, Mean Corpuscular Hemoglobin Concent 31.0L, Red Cell Distribution Width 16.1H, Platelet Count 667H, Mean Platelet Volume 6.3L, Neutrophils (%) (Auto) 57.2, Lymphocytes (%) (Auto) 16.1L, Monocytes (%) (Auto) 8.8, Eosinophils (%) (Auto) 17.5H, Basophils (%) (Auto) 0.5, Sodium Level 145, Potassium Level 3.7, Chloride Level 107, Carbon Dioxide Level 25, Anion Gap 13, Blood Urea Nitrogen 26H, Creatinine 0.7, Estimat Glomerular Filtration Rate > 60, Glucose Level 87, Calcium Level 9.4 Current Medications Medications (Trade) Dose Ordered Sig/Wanda Route PRN Reason Start Time Stop Time Status Last Admin Dose Admin Acetaminophen (Tylenol) 650 mg Q4H PRN ORAL FEVER 05/31/17 21:45 06/30/17 21:44 Albuterol/ Ipratropium (DuoNeb 0.5-3(2.5)mg/3ml) 3 ml EVERY 4 HOURS PRN HHN Shortness of Breath 05/31/17 21:45 06/05/17 21:44 Colistimethate Sodium (Colistin *inhalation use only*) 150 mg Q12HR@10,22 INH 06/04/17 12:00 06/11/17 11:59 Dextrose (Dextrose 50%) STAT PRN IV Hypoglycemia 05/31/17 21:45 06/30/17 21:44 Docusate Sodium (Colace) 100 mg THREE TIMES A DAY GT 06/04/17 13:00 07/04/17 12:59 Heparin Sodium (Porcine) (Heparin 5000 units/ml) 5,000 units EVERY 12 HOURS SUBQ 06/01/17 09:00 07/01/17 08:59 06/04/17 09:17 Lansoprazole (Prevacid) 30 mg DAILY GT 06/01/17 09:00 07/01/17 08:59 06/04/17 09:15 Levothyroxine Sodium (Synthroid) 50 mcg ACBREAKFAST GT 06/02/17 06:30 07/01/17 08:59 06/04/17 05:59 Lorazepam (Ativan 2mg/ml 1ml) 2 mg EVERY 2 HOURS PRN IV For Anxiety 05/31/17 21:45 06/07/17 21:44 06/04/17 00:32 Meropenem 1 gm/ Sodium Chloride 110 ml @ 220 mls/hr Q8HR IVPB 06/04/17 14:00 06/09/17 13:59 Morphine Sulfate (Morphine Sulfate) 4 mg EVERY 4 HOURS PRN IVP Severe Pain (Pain Scale 7-10) 05/31/17 21:45 06/07/17 21:44 Ondansetron HCl (Zofran) 4 mg Q6H PRN IVP Nausea & Vomiting 05/31/17 21:45 06/30/17 21:44 Polyethylene Glycol (Miralax) 17 gm BEDTIME ORAL 06/04/17 21:00 07/04/17 20:59 Polyethylene Glycol (Miralax) 17 gm DAILYPRN PRN ORAL Constipation 05/31/17 21:45 06/30/17 21:44 Sucralfate (Carafate) 1 gm BID GT 06/04/17 18:00 07/04/17 17:59 Tigecycline 50 mg/ Dextrose 110 ml @ 220 mls/hr EVERY 12 HOURS IVPB 06/03/17 21:00 06/10/17 20:59 06/04/17 09:16 MIKAYLA WILLOUGHBY Jun 04, 2017 12:09
--- NOTE | 2017-06-04 12:53 | Diagnostic Imaging Report ---
APPROVED REPORT CPT Code: 69492 Present Symptoms Shortness of breath Comments: Technically difficult study. 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 Risk Factors Bed Rest BILATERAL: Imaging reveals a patent deep venous system bilaterally. There is no evidence of thrombus within the femoral, popliteal or tibial segments. The greater saphenous veins are also within normal limits. Doppler indicates normal spontaneous flow within these segments.
[2017-06-04] MEDS: Docusate 100mg/10ml Liq GT SCH ×2 (13:24→18:00)
[2017-06-04] MEDS ORDERED: Meropenem 1 GM in NS 110 ML IVPB SCH (14:00)
[2017-06-04] MEDS ORDERED: Tubing IV Secondary IV ONE (14:16)
[2017-06-04] MEDS ORDERED: NS 275ml ONE (14:16)
[2017-06-04] MEDS: Meropenem 1 GM in NS 110 ML IVPB SCH ×2 (15:41→22:13)
[2017-06-04 16:00] VITALS: BP 136/61
[2017-06-04] MEDS: Sucralfate 1gm tab GT SCH (18:15)
[2017-06-04 19:59] VITALS: BP 135/86
[2017-06-04] MEDS ORDERED: Heparin 5000 units/ml inj SUBQ SCH (21:00)
[2017-06-04] MEDS: Miralax 17gm pkt ORAL SCH (22:12)
[2017-06-05] VITALS: BP 149/83
[2017-06-05] MEDS: Colistin for inhalation INH SCH ×3 (01:24→21:37)
[2017-06-05 03:58] VITALS: BP 158/119
[2017-06-05 04:57] LABS: BASOPHILS % (AUTO) 0.4 % (0.0-2.0); EOSINOPHILS % (AUTO) 11.3 % (0.0-3.0); LYMPHOCYTES % (AUTO) 13.2 % (20.0-45.0); MEAN CORPUSCULAR HEMOGLOBIN 26.6 PG (27.0-31.0); MEAN CORPUSCULAR HGB CONC 31.5 G/DL (32.0-36.0); MEAN CORPUSCULAR VOLUME 85 FL (80-99); MEAN PLATELET VOLUME 6.2 FL (6.5-10.1); MONOCYTES % (AUTO) 7.3 % (1.0-10.0); NEUTROPHILS % (AUTO) 67.9 % (45.0-75.0); PLATELET COUNT 640 K/UL (150-450); RED BLOOD COUNT 3.15 M/UL (4.70-6.10); RED CELL DISTRIBUTION WIDTH 15.8 % (11.6-14.8); WHITE BLOOD COUNT 14.8 K/UL (4.8-10.8)
[2017-06-05 05:24] LABS: ALANINE AMINOTRANSFERASE 13 U/L (3-41); ALBUMIN/GLOBULIN RATIO 0.7 (1.0-2.7); ANION GAP 13 (5-15); ASPARTATE AMINO TRANSFERASE 11 U/L (5-40); CALCIUM 9.3 mg/dL (8.6-10.2); CARBON DIOXIDE 23 mEQ/L (20-30); CHLORIDE 113 mEQ/L (98-107); CREATININE 0.7 mg/dL (0.7-1.2); GLOMERULAR FILTRATION RATE > 60 mL/min (>60); POTASSIUM 3.6 mEQ/L (3.4-4.9); SODIUM 149 mEQ/L (135-145); TOTAL PROTEIN 6.9 g/dL (6.6-8.7)
[2017-06-05 05:29] LABS: CRP QUANT 2.7 mg/dL (< 0.5); MAGNESIUM 2.2 mg/dL (1.7-2.5); PHOSPHORUS 3.7 mg/dL (2.5-4.8)
[2017-06-05] MEDS: Meropenem 1 GM in NS 110 ML IVPB SCH ×3 (06:15→21:18)
[2017-06-05 08:17] VITALS: BP 141/85
[2017-06-05] MEDS: Docusate 100mg/10ml Liq GT SCH ×3 (08:35→17:20)
[2017-06-05] MEDS: Sucralfate 1gm tab GT SCH ×2 (08:35→17:20)
[2017-06-05] MEDS: Tigecycline 50 MG in D5W 110 ML IVPB SCH ×2 (08:42→20:25)
[2017-06-05 08:54] LABS: HEMOLYSIS 36; IRON 28 ug/dL (59-158); TOTAL IRON BINDING CAPACITY 248 ug/dL (250-400)
--- NOTE | 2017-06-05 12:30 | Pulmonology Progress Note ---
Assessment/Plan Problems: (1) Respiratory failure, [id number] (2) Aspiration pneumonia (3) Sepsis (4) Feeding by G-tube (5) Debility (6) Prerenal azotemia Subjective ROS Limited/Unobtainable: No Constitutional: Reports: no symptoms HEENT: Repors: no symptoms Allergies: Coded Allergies: NO KNOWN DRUG ALLERGIES (Verified Allergy, Unknown, 09/11/16) Objective Last 24 Hour Vital Signs Date Time Temp Pulse Resp B/P (MAP) Pulse Ox O2 Delivery O2 Flow Rate FiO2 06/05/17 11:28 93 24 35 06/05/17 09:52 83 14 100 Mechanical Ventilator 35 06/05/17 09:40 35 06/05/17 09:40 77 16 99 Mechanical Ventilator 35 06/05/17 09:23 82 14 35 06/05/17 08:17 98.1 90 22 141/85 100 Mechanical Ventilator 35 06/05/17 08:00 35 06/05/17 08:00 78 06/05/17 06:58 89 28 35 06/05/17 05:20 83 15 35 06/05/17 04:00 35 06/05/17 04:00 77 06/05/17 03:58 98.1 96 20 158/119 100 Mechanical Ventilator 35 06/05/17 03:01 83 15 35 06/05/17 01:31 82 14 99 Mechanical Ventilator 35 06/05/17 01:25 82 14 35 06/05/17 00:00 97.3 96 20 149/83 100 Mechanical Ventilator 35 06/05/17 00:00 84 06/05/17 00:00 35 06/04/17 23:08 79 16 35 06/04/17 21:26 87 15 35 06/04/17 20:00 35 06/04/17 19:59 98.1 86 14 135/86 100 Mechanical Ventilator 35 06/04/17 19:30 83 06/04/17 19:20 100 14 35 06/04/17 16:35 124 20 35 06/04/17 16:00 93 06/04/17 16:00 35 06/04/17 16:00 98.5 110 22 136/61 100 Mechanical Ventilator 35 06/04/17 15:14 96 15 35 06/04/17 13:03 102 20 35 Intake and Output 06/05/17 06/06/17 19:00 07:00 Intake Total 490 ml Balance 490 ml Free Water 120 ml IV Total 110 ml Tube Feeding 260 ml General Appearance: WD/WN, cachetic HEENT: normocephalic, atraumatic, status post trach Respiratory/Chest: chest wall non-tender Cardiovascular: normal peripheral pulses, normal rate, regular rhythm Abdomen: normal bowel sounds, no organomegaly Extremities: no cyanosis Skin: no rash 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, no motor/sensory deficits Laboratory Tests 06/05/17 00:00: Stool Occult Blood Positive 06/05/17 03:25: White Blood Count 14.8H, Red Blood Count 3.15L, Hemoglobin 8.4L, Hematocrit 26.7L, Mean Corpuscular Volume 85, Mean Corpuscular Hemoglobin 26.6L, Mean Corpuscular Hemoglobin Concent 31.5L, Red Cell Distribution Width 15.8H, Platelet Count 640H, Mean Platelet Volume 6.2L, Neutrophils (%) (Auto) 67.9, Lymphocytes (%) (Auto) 13.2L, Monocytes (%) (Auto) 7.3, Eosinophils (%) (Auto) 11.3H, Basophils (%) (Auto) 0.4, Erythrocyte Sedimentation Rate 71H, Sodium Level 149H, Potassium Level 3.6, Chloride Level 113H, Carbon Dioxide Level 23, Anion Gap 13, Blood Urea Nitrogen 32H, Creatinine 0.7, Estimat Glomerular Filtration Rate > 60, Glucose Level 140H, Calcium Level 9.3, Phosphorus Level 3.7, Magnesium Level 2.2, Iron Level 28L, Total Iron Binding Capacity 248L, Percent Iron Saturation 11L, Unsaturated Iron Binding 220, Total Bilirubin < 0.2 , Aspartate Amino Transf (AST/SGOT) 11, Alanine Aminotransferase (ALT/SGPT) 13, Alkaline Phosphatase 104, C-Reactive Protein, Quantitative 2.7H, Total Protein 6.9, Albumin 3.0L, Globulin 3.9, Albumin/Globulin Ratio 0.7L Current Medications Medications (Trade) Dose Ordered Sig/Wanda Route PRN Reason Start Time Stop Time Status Last Admin Dose Admin Acetaminophen (Tylenol) 650 mg Q4H PRN ORAL FEVER 05/31/17 21:45 06/30/17 21:44 Albuterol/ Ipratropium (DuoNeb 0.5-3(2.5)mg/3ml) 3 ml EVERY 4 HOURS PRN HHN Shortness of Breath 05/31/17 21:45 06/05/17 21:44 Colistimethate Sodium (Colistin *inhalation use only*) 150 mg Q12HR@10,22 INH 06/04/17 12:00 06/11/17 11:59 06/05/17 09:49 Dextrose (Dextrose 50%) STAT PRN IV Hypoglycemia 05/31/17 21:45 06/30/17 21:44 Docusate Sodium (Colace) 100 mg THREE TIMES A DAY GT 06/04/17 13:00 07/04/17 12:59 06/05/17 08:35 Lansoprazole (Prevacid) 30 mg DAILY GT 06/01/17 09:00 07/01/17 08:59 06/05/17 08:35 Levothyroxine Sodium (Synthroid) 50 mcg ACBREAKFAST GT 06/02/17 06:30 07/01/17 08:59 06/05/17 06:15 Lorazepam (Ativan 2mg/ml 1ml) 2 mg EVERY 2 HOURS PRN IV For Anxiety 05/31/17 21:45 06/07/17 21:44 06/04/17 00:32 Meropenem 1 gm/ Sodium Chloride 110 ml @ 220 mls/hr Q8HR IVPB 06/04/17 16:00 06/09/17 15:59 06/05/17 06:15 Morphine Sulfate (Morphine Sulfate) 4 mg EVERY 4 HOURS PRN IVP Severe Pain (Pain Scale 7-10) 05/31/17 21:45 06/07/17 21:44 Ondansetron HCl (Zofran) 4 mg Q6H PRN IVP Nausea & Vomiting 05/31/17 21:45 06/30/17 21:44 Polyethylene Glycol (Miralax) 17 gm BEDTIME ORAL 06/04/17 21:00 07/04/17 20:59 06/04/17 22:12 Polyethylene Glycol (Miralax) 17 gm DAILYPRN PRN ORAL Constipation 05/31/17 21:45 06/30/17 21:44 Sucralfate (Carafate) 1 gm BID GT 06/04/17 18:00 07/04/17 17:59 06/05/17 08:35 Tigecycline 50 mg/ Dextrose 110 ml @ 220 mls/hr EVERY 12 HOURS IVPB 06/03/17 21:00 06/10/17 20:59 06/05/17 08:42 Critical Care - Asmt/Plan Respiratory: monitor respiratory rate, adjust FIO2 Cardiac: continue to monitor HR/BP Renal: F/U I&O, keep IV fluid, check electrolytes Infectious Disease: check cultures Gastrointestinal: continue feedings/current rate Endocrine: monitor blood sugar, continue sliding scale insulin Hematologic: monitor H/H, transfuse if hgb<8.5 Neurologic: PRN Ativan, PRN Morphine, keep patient comfortable Affect: PRN ativan Prophylaxis: Protonix 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
[2017-06-05] MEDS ORDERED: Hydrocortisone 1% Cr 30gm TOPIC PRN (13:00)
--- NOTE | 2017-06-05 14:42 | GI Progress Note ---
Assessment/Plan Problems: (1) Sepsis ICD Codes: A41.9 - Sepsis, unspecified organism SNOMED: 52737055 (2) Fecal impaction in rectum ICD Codes: K56.41 - Fecal impaction SNOMED: 72535404 (3) Constipation ICD Codes: K59.00 - Constipation, unspecified SNOMED: 10023622 (4) Protein-calorie malnutrition, severe ICD Codes: E43 - Unspecified severe protein-calorie malnutrition SNOMED: 783281341 (5) Feeding by G-tube ICD Codes: Z93.1 - Gastrostomy status SNOMED: 251105415, 139014882 (6) Sepsis ICD Codes: A41.9 - Sepsis SNOMED: 06158663 (7) Anemia ICD Codes: D64.9 - Anemia, unspecified SNOMED: 184822527 (8) Severe erosive esophagitis Status: unchanged Status Narrative Discussed with Dr. Wilson. Assessment/Plan defer GI procedures given known severe esophagitis and stable H&H OB stool positive supportive care GTFs per dietary iron deficiency >> venofer x 1 stable H&H, prn transfusions cont ppi GT, add carafate bowel regime >> colace + miralax reflux measures fu labs Subjective Subjective limited Objective Last 24 Hour Vital Signs Date Time Temp Pulse Resp B/P (MAP) Pulse Ox O2 Delivery O2 Flow Rate FiO2 06/05/17 13:16 90 27 35 06/05/17 12:00 35 06/05/17 11:56 77 06/05/17 11:28 93 24 35 06/05/17 09:52 83 14 100 Mechanical Ventilator 35 06/05/17 09:40 35 06/05/17 09:40 77 16 99 Mechanical Ventilator 35 06/05/17 09:23 82 14 35 06/05/17 08:17 98.1 90 22 141/85 100 Mechanical Ventilator 35 06/05/17 08:00 35 06/05/17 08:00 78 06/05/17 06:58 89 28 35 06/05/17 05:20 83 15 35 06/05/17 04:00 35 06/05/17 04:00 77 06/05/17 03:58 98.1 96 20 158/119 100 Mechanical Ventilator 35 06/05/17 03:01 83 15 35 06/05/17 01:31 82 14 99 Mechanical Ventilator 35 06/05/17 01:25 82 14 35 06/05/17 00:00 97.3 96 20 149/83 100 Mechanical Ventilator 35 06/05/17 00:00 84 06/05/17 00:00 35 06/04/17 23:08 79 16 35 06/04/17 21:26 87 15 35 06/04/17 20:00 35 06/04/17 19:59 98.1 86 14 135/86 100 Mechanical Ventilator 35 06/04/17 19:30 83 06/04/17 19:20 100 14 35 06/04/17 16:35 124 20 35 06/04/17 16:00 93 06/04/17 16:00 35 06/04/17 16:00 98.5 110 22 136/61 100 Mechanical Ventilator 35 06/04/17 15:14 96 15 35 Intake and Output 06/05/17 06/06/17 19:00 07:00 Intake Total 490 ml Balance 490 ml Free Water 120 ml IV Total 110 ml Tube Feeding 260 ml Laboratory Tests Test 06/05/17 00:00 06/05/17 03:25 Stool Occult Blood Positive (NEGATIVE) White Blood Count 14.8 K/UL (4.8-10.8) H Red Blood Count 3.15 M/UL (4.70-6.10) L Hemoglobin 8.4 G/DL (14.2-18.0) L Hematocrit 26.7 % (42.0-52.0) L Mean Corpuscular Volume 85 FL (80-99) Mean Corpuscular Hemoglobin 26.6 PG (27.0-31.0) L Mean Corpuscular Hemoglobin Concent 31.5 G/DL (32.0-36.0) L Red Cell Distribution Width 15.8 % (11.6-14.8) H Platelet Count 640 K/UL (150-450) H Mean Platelet Volume 6.2 FL (6.5-10.1) L Neutrophils (%) (Auto) 67.9 % (45.0-75.0) Lymphocytes (%) (Auto) 13.2 % (20.0-45.0) L Monocytes (%) (Auto) 7.3 % (1.0-10.0) Eosinophils (%) (Auto) 11.3 % (0.0-3.0) H Basophils (%) (Auto) 0.4 % (0.0-2.0) Erythrocyte Sedimentation Rate 71 MM/HR (0-20) H Sodium Level 149 mEQ/L (135-145) H Potassium Level 3.6 mEQ/L (3.4-4.9) Chloride Level 113 mEQ/L (98-107) H Carbon Dioxide Level 23 mEQ/L (20-30) Anion Gap 13 (5-15) Blood Urea Nitrogen 32 mg/dL (7-23) H Creatinine 0.7 mg/dL (0.7-1.2) Estimat Glomerular Filtration Rate > 60 mL/min (>60) Glucose Level 140 mg/dL (74-106) H Calcium Level 9.3 mg/dL (8.6-10.2) Phosphorus Level 3.7 mg/dL (2.5-4.8) Magnesium Level 2.2 mg/dL (1.7-2.5) Iron Level 28 ug/dL (59-158) L Total Iron Binding Capacity 248 ug/dL (250-400) L Percent Iron Saturation 11 % (15-50) L Unsaturated Iron Binding 220 ug/dL (112-346) Total Bilirubin < 0.2 mg/dL (0.0-1.2) Aspartate Amino Transf (AST/SGOT) 11 U/L (5-40) Alanine Aminotransferase (ALT/SGPT) 13 U/L (3-41) Alkaline Phosphatase 104 U/L (40-129) C-Reactive Protein, Quantitative 2.7 mg/dL (< 0.5) H Total Protein 6.9 g/dL (6.6-8.7) Albumin 3.0 g/dL (3.5-5.2) L Globulin 3.9 g/dL Albumin/Globulin Ratio 0.7 (1.0-2.7) L Height (Feet): 5 Height (Inches): 6.00 Weight (Pounds): 138 General Appearance: no apparent distress, alert Cardiovascular: normal rate Respiratory/Chest: no respiratory distress, other - mech vent Abdominal Exam: site - c/d/i Arabella Quesada NRoselyn Jun 05, 2017 14:42
[2017-06-05 16:00] VITALS: BP 149/77
[2017-06-05] MEDS ORDERED: NS 275ml ONE (16:31)
[2017-06-05] MEDS ORDERED: Tubing IV Secondary IV ONE (16:31)
[2017-06-05] MEDS: Hydrocortisone 1% Cr 30gm TOPIC PRN (17:20)
[2017-06-05 20:00] VITALS: BP 151/77
[2017-06-05] MEDS: Miralax 17gm pkt ORAL SCH (20:25)
[2017-06-05 23:26] VITALS: BP 116/67
[2017-06-06 04:06] VITALS: BP 151/86
[2017-06-06] MEDS: Meropenem 1 GM in NS 110 ML IVPB SCH ×3 (05:22→22:57)
[2017-06-06 05:37] LABS: BASOPHILS % (AUTO) 0.5 % (0.0-2.0); MEAN CORPUSCULAR HEMOGLOBIN 26.7 PG (27.0-31.0); MEAN CORPUSCULAR HGB CONC 31.4 G/DL (32.0-36.0); MEAN CORPUSCULAR VOLUME 85 FL (80-99); MEAN PLATELET VOLUME 6.2 FL (6.5-10.1); MONOCYTES % (AUTO) 9.3 % (1.0-10.0); NEUTROPHILS % (AUTO) 53.2 % (45.0-75.0); PLATELET COUNT 635 K/UL (150-450); RED BLOOD COUNT 3.23 M/UL (4.70-6.10); RED CELL DISTRIBUTION WIDTH 16.1 % (11.6-14.8); WHITE BLOOD COUNT 11.8 K/UL (4.8-10.8)
[2017-06-06 05:43] LABS: INR 1.1 (0.9-1.1); PROTHROMBIN TIME 11.1 SEC (9.30-11.50)
[2017-06-06 06:13] LABS: ALANINE AMINOTRANSFERASE 14 U/L (3-41); ALBUMIN/GLOBULIN RATIO 0.8 (1.0-2.7); ANION GAP 12 (5-15); ASPARTATE AMINO TRANSFERASE 16 U/L (5-40); CALCIUM 9.1 mg/dL (8.6-10.2); CARBON DIOXIDE 26 mEQ/L (20-30); CHLORIDE 111 mEQ/L (98-107); CREATININE 0.7 mg/dL (0.7-1.2); GLOMERULAR FILTRATION RATE > 60 mL/min (>60); HEMOLYSIS 14; MAGNESIUM 2.1 mg/dL (1.7-2.5); PHOSPHORUS 2.8 mg/dL (2.5-4.8); POTASSIUM 3.8 mEQ/L (3.4-4.9); SODIUM 149 mEQ/L (135-145); TOTAL PROTEIN 6.8 g/dL (6.6-8.7)
[2017-06-06 08:05] VITALS: BP 149/96
[2017-06-06] MEDS: Sucralfate 1gm tab GT SCH ×2 (08:41→17:55)
[2017-06-06] MEDS: Tigecycline 50 MG in D5W 110 ML IVPB SCH ×2 (08:41→21:44)
[2017-06-06] MEDS: Docusate 100mg/10ml Liq GT SCH ×3 (08:41→17:55)
[2017-06-06] MEDS: Colistin for inhalation INH SCH ×2 (09:48→21:05)
--- NOTE | 2017-06-06 10:33 | GI Progress Note ---
Assessment/Plan Problems: (1) Sepsis ICD Codes: A41.9 - Sepsis, unspecified organism SNOMED: 60975817 (2) Fecal impaction in rectum ICD Codes: K56.41 - Fecal impaction SNOMED: 93270335 (3) Constipation ICD Codes: K59.00 - Constipation, unspecified SNOMED: 27299956 (4) Protein-calorie malnutrition, severe ICD Codes: E43 - Unspecified severe protein-calorie malnutrition SNOMED: 262224453 (5) Feeding by G-tube ICD Codes: Z93.1 - Gastrostomy status SNOMED: 972901035, 599704898 (6) Sepsis ICD Codes: A41.9 - Sepsis SNOMED: 26814889 (7) Anemia ICD Codes: D64.9 - Anemia, unspecified SNOMED: 264309895 (8) Severe erosive esophagitis Status: stable, unchanged Status Narrative Discussed with Dr. Wilson. Assessment/Plan defer GI procedures given known history of severe esophagitis black tarry stool reported by RN, OB stool positive supportive care GTFs per dietary iron deficiency >> venofer stable H&H, prn transfusions cont ppi GT + carafate bowel regime >> colace + miralax reflux measures fu labs Subjective Subjective limited Objective Last 24 Hour Vital Signs Date Time Temp Pulse Resp B/P (MAP) Pulse Ox O2 Delivery O2 Flow Rate FiO2 06/06/17 09:50 103 23 100 Mechanical Ventilator 35 06/06/17 09:48 35 06/06/17 09:41 81 16 100 Mechanical Ventilator 35 06/06/17 09:41 87 16 35 06/06/17 08:05 97.9 86 18 149/96 100 Mechanical Ventilator 35 06/06/17 08:00 35 06/06/17 07:30 90 06/06/17 07:19 102 19 35 06/06/17 05:11 88 19 35 06/06/17 04:07 35 06/06/17 04:06 97.9 90 22 151/86 100 Mechanical Ventilator 35 06/06/17 04:00 84 06/06/17 03:22 86 17 35 06/06/17 00:56 83 16 35 06/06/17 00:00 84 06/05/17 23:27 35 06/05/17 23:26 97.9 81 14 116/67 100 Mechanical Ventilator 35 06/05/17 23:22 80 16 35 06/05/17 22:47 35 06/05/17 22:47 89 16 100 Mechanical Ventilator 35 06/05/17 21:37 81 16 98 Mechanical Ventilator 35 06/05/17 21:28 81 16 35 06/05/17 20:00 98.1 82 20 151/77 100 Mechanical Ventilator 35 06/05/17 20:00 81 06/05/17 20:00 35 06/05/17 19:20 74 16 35 06/05/17 17:08 82 16 35 06/05/17 16:42 84 06/05/17 16:00 98.5 94 20 149/77 100 Mechanical Ventilator 35 06/05/17 16:00 35 06/05/17 15:00 84 15 35 06/05/17 13:16 90 27 35 06/05/17 12:00 35 06/05/17 11:56 77 06/05/17 11:28 93 24 35 Intake and Output 06/06/17 06/07/17 19:00 07:00 Intake Total 355 ml Balance 355 ml Free Water 50 ml IV Total 110 ml Tube Feeding 195 ml Laboratory Tests Test 06/06/17 03:47 White Blood Count 11.8 K/UL (4.8-10.8) H Red Blood Count 3.23 M/UL (4.70-6.10) L Hemoglobin 8.6 G/DL (14.2-18.0) L Hematocrit 27.5 % (42.0-52.0) L Mean Corpuscular Volume 85 FL (80-99) Mean Corpuscular Hemoglobin 26.7 PG (27.0-31.0) L Mean Corpuscular Hemoglobin Concent 31.4 G/DL (32.0-36.0) L Red Cell Distribution Width 16.1 % (11.6-14.8) H Platelet Count 635 K/UL (150-450) H Mean Platelet Volume 6.2 FL (6.5-10.1) L Neutrophils (%) (Auto) 53.2 % (45.0-75.0) Lymphocytes (%) (Auto) 18.0 % (20.0-45.0) L Monocytes (%) (Auto) 9.3 % (1.0-10.0) Eosinophils (%) (Auto) 19.0 % (0.0-3.0) H Basophils (%) (Auto) 0.5 % (0.0-2.0) Prothrombin Time 11.1 SEC (9.30-11.50) Prothromb Time International Ratio 1.1 (0.9-1.1) Activated Partial Thromboplast Time 32 SEC (23-33) Sodium Level 149 mEQ/L (135-145) H Potassium Level 3.8 mEQ/L (3.4-4.9) Chloride Level 111 mEQ/L (98-107) H Carbon Dioxide Level 26 mEQ/L (20-30) Anion Gap 12 (5-15) Blood Urea Nitrogen 30 mg/dL (7-23) H Creatinine 0.7 mg/dL (0.7-1.2) Estimat Glomerular Filtration Rate > 60 mL/min (>60) Glucose Level 125 mg/dL (74-106) H Calcium Level 9.1 mg/dL (8.6-10.2) Phosphorus Level 2.8 mg/dL (2.5-4.8) Magnesium Level 2.1 mg/dL (1.7-2.5) Total Bilirubin < 0.2 mg/dL (0.0-1.2) Aspartate Amino Transf (AST/SGOT) 16 U/L (5-40) Alanine Aminotransferase (ALT/SGPT) 14 U/L (3-41) Alkaline Phosphatase 105 U/L (40-129) Total Protein 6.8 g/dL (6.6-8.7) Albumin 3.1 g/dL (3.5-5.2) L Globulin 3.7 g/dL Albumin/Globulin Ratio 0.8 (1.0-2.7) L Height (Feet): 5 Height (Inches): 6.00 Weight (Pounds): 138 General Appearance: no apparent distress, alert Cardiovascular: normal rate Respiratory/Chest: other - mech vent Abdominal Exam: GT site - c/d/i Objective black tarry stools as reported by Arabella Black N.P. Jun 06, 2017 10:33
[2017-06-06] MEDS: Hydrocortisone 1% Cr 30gm TOPIC PRN (10:48)
[2017-06-06 12:49] VITALS: BP 151/91
[2017-06-06 15:34] VITALS: BP 157/80
[2017-06-06 20:00] VITALS: BP 142/74
--- NOTE | 2017-06-06 20:24 | Infectious Diseases Prog Note ---
Assessment/Plan Assessment/Plan ASSESSMENT:# . Possible recurrent aspiration pneumonia or healthcare-associated pneumonia. Sputum : ACB and KPC Chest x-ray shows right infrahilar atelectasis and otherwise no acute process. #Possible recurrent urinary tract infection. Urine culture is growign yeast so far (colonizer) # recurrent sepsis, improving #Leukocytosis ; improving #Rash-possible scabies, SP Rx # History of recurrent upper gastrointestinal bleeding and erosive esophagitis with a decrease in hemoglobin from previous. # Chronic ventilator-dependent respiratory failure, status post percutaneous endoscopic gastrostomy tube placement with multiple revisions and replacements. # Chronic encephalopathy/dementia. # Thrombocytosis. #. [facility] resident. #. Functional quadriplegia/bedbound. # Frequent hospital readmissions. # Multidrug-resistant organism colonized including methicillin-resistant Staphylococcus aureus, vancomycin resistant Enterococcus, Klebsiella pneumoniae carbapenemase, and multidrug-resistant Acinetobacter. # No known drug allergies. #. Full Code. PLAN: -. Continue Tygacil, colistin INH and Merrem d # - SP RX for possible scabies - Monitor CBC and temperatures. -. Monitor BMP. - Monitor chest x-ray. - Ventilator support, tracheostomy care, and aspiration precautions. - Contact precautions Subjective Constitutional: Denies: no symptoms, fever, chills, fatigue, anorexia, drenching sweats, other Allergies: Coded Allergies: NO KNOWN DRUG ALLERGIES (Verified Allergy, Unknown, 09/11/16) Objective Vital Signs Last 24 Hour Vital Signs Date Time Temp Pulse Resp B/P (MAP) Pulse Ox O2 Delivery O2 Flow Rate FiO2 06/06/17 19:17 82 20 35 06/06/17 17:38 100 24 35 06/06/17 16:00 77 06/06/17 16:00 35 06/06/17 15:34 97.6 85 16 157/80 100 Mechanical Ventilator 35 06/06/17 15:20 79 16 35 06/06/17 13:15 95 16 35 06/06/17 12:49 97.9 96 16 151/91 100 Mechanical Ventilator 35 06/06/17 12:00 35 06/06/17 11:51 86 06/06/17 11:24 90 16 35 06/06/17 09:50 103 23 100 Mechanical Ventilator 35 06/06/17 09:48 35 06/06/17 09:41 81 16 100 Mechanical Ventilator 35 06/06/17 09:41 87 16 35 06/06/17 08:05 97.9 86 18 149/96 100 Mechanical Ventilator 35 06/06/17 08:00 35 06/06/17 07:30 90 06/06/17 07:19 102 19 35 06/06/17 05:11 88 19 35 06/06/17 04:07 35 06/06/17 04:06 97.9 90 22 151/86 100 Mechanical Ventilator 35 06/06/17 04:00 84 06/06/17 03:22 86 17 35 06/06/17 00:56 83 16 35 06/06/17 00:00 84 06/05/17 23:27 35 06/05/17 23:26 97.9 81 14 116/67 100 Mechanical Ventilator 35 06/05/17 23:22 80 16 35 06/05/17 22:47 35 06/05/17 22:47 89 16 100 Mechanical Ventilator 35 06/05/17 21:37 81 16 98 Mechanical Ventilator 35 06/05/17 21:28 81 16 35 Height (Feet): 5 Height (Inches): 6.00 Weight (Pounds): 138 HEENT: anicteric Respiratory/Chest: no respiratory distress Cardiovascular: no gallop/murmur Abdomen: soft, non tender Laboratory Tests Test 06/06/17 03:47 White Blood Count 11.8 K/UL (4.8-10.8) H Red Blood Count 3.23 M/UL (4.70-6.10) L Hemoglobin 8.6 G/DL (14.2-18.0) L Hematocrit 27.5 % (42.0-52.0) L Mean Corpuscular Volume 85 FL (80-99) Mean Corpuscular Hemoglobin 26.7 PG (27.0-31.0) L Mean Corpuscular Hemoglobin Concent 31.4 G/DL (32.0-36.0) L Red Cell Distribution Width 16.1 % (11.6-14.8) H Platelet Count 635 K/UL (150-450) H Mean Platelet Volume 6.2 FL (6.5-10.1) L Neutrophils (%) (Auto) 53.2 % (45.0-75.0) Lymphocytes (%) (Auto) 18.0 % (20.0-45.0) L Monocytes (%) (Auto) 9.3 % (1.0-10.0) Eosinophils (%) (Auto) 19.0 % (0.0-3.0) H Basophils (%) (Auto) 0.5 % (0.0-2.0) Prothrombin Time 11.1 SEC (9.30-11.50) Prothromb Time International Ratio 1.1 (0.9-1.1) Activated Partial Thromboplast Time 32 SEC (23-33) Sodium Level 149 mEQ/L (135-145) H Potassium Level 3.8 mEQ/L (3.4-4.9) Chloride Level 111 mEQ/L (98-107) H Carbon Dioxide Level 26 mEQ/L (20-30) Anion Gap 12 (5-15) Blood Urea Nitrogen 30 mg/dL (7-23) H Creatinine 0.7 mg/dL (0.7-1.2) Estimat Glomerular Filtration Rate > 60 mL/min (>60) Glucose Level 125 mg/dL (74-106) H Calcium Level 9.1 mg/dL (8.6-10.2) Phosphorus Level 2.8 mg/dL (2.5-4.8) Magnesium Level 2.1 mg/dL (1.7-2.5) Total Bilirubin < 0.2 mg/dL (0.0-1.2) Aspartate Amino Transf (AST/SGOT) 16 U/L (5-40) Alanine Aminotransferase (ALT/SGPT) 14 U/L (3-41) Alkaline Phosphatase 105 U/L (40-129) Total Protein 6.8 g/dL (6.6-8.7) Albumin 3.1 g/dL (3.5-5.2) L Globulin 3.7 g/dL Albumin/Globulin Ratio 0.8 (1.0-2.7) L Current Medications Medications (Trade) Dose Ordered Sig/Wanda Route PRN Reason Start Time Stop Time Status Last Admin Dose Admin Acetaminophen (Tylenol) 650 mg Q4H PRN ORAL FEVER 05/31/17 21:45 06/30/17 21:44 Colistimethate Sodium (Colistin *inhalation use only*) 150 mg Q12HR@10,22 INH 06/04/17 12:00 06/11/17 11:59 06/06/17 09:48 Dextrose (Dextrose 50%) STAT PRN IV Hypoglycemia 05/31/17 21:45 06/30/17 21:44 Docusate Sodium (Colace) 100 mg THREE TIMES A DAY GT 06/04/17 13:00 07/04/17 12:59 06/06/17 08:41 Hydrocortisone (Hydrocortisone) 1 applic Q6H PRN TOPIC Apply to skin rash on body 06/05/17 15:00 07/05/17 14:59 06/06/17 10:48 Lansoprazole (Prevacid) 30 mg DAILY GT 06/01/17 09:00 07/01/17 08:59 06/06/17 08:41 Levothyroxine Sodium (Synthroid) 50 mcg ACBREAKFAST GT 06/02/17 06:30 07/01/17 08:59 06/06/17 05:55 Lorazepam (Ativan 2mg/ml 1ml) 2 mg EVERY 2 HOURS PRN IV For Anxiety 05/31/17 21:45 06/07/17 21:44 06/04/17 00:32 Meropenem 1 gm/ Sodium Chloride 110 ml @ 220 mls/hr Q8HR IVPB 06/04/17 16:00 06/09/17 15:59 06/06/17 13:11 Morphine Sulfate (Morphine Sulfate) 4 mg EVERY 4 HOURS PRN IVP Severe Pain (Pain Scale 7-10) 05/31/17 21:45 06/07/17 21:44 Ondansetron HCl (Zofran) 4 mg Q6H PRN IVP Nausea & Vomiting 05/31/17 21:45 06/30/17 21:44 Polyethylene Glycol (Miralax) 17 gm BEDTIME ORAL 06/04/17 21:00 07/04/17 20:59 06/05/17 20:25 Polyethylene Glycol (Miralax) 17 gm DAILYPRN PRN ORAL Constipation 05/31/17 21:45 06/30/17 21:44 Sucralfate (Carafate) 1 gm BID GT 06/04/17 18:00 07/04/17 17:59 06/06/17 17:55 Tigecycline 50 mg/ Dextrose 110 ml @ 220 mls/hr EVERY 12 HOURS IVPB 06/03/17 21:00 06/10/17 20:59 06/06/17 08:41 GLYNN BURGOS M.D. Jun 06, 2017 20:24
[2017-06-06] MEDS: Miralax 17gm pkt ORAL SCH (21:00)
[2017-06-07] MEDS: LORazepam Inj 2mg/ml 1ml IV PRN ×2 (00:22→04:26)
[2017-06-07 00:36] VITALS: BP 159/65
[2017-06-07 04:10] VITALS: BP 142/76
[2017-06-07 05:39] LABS: MEAN CORPUSCULAR HEMOGLOBIN 25.8 PG (27.0-31.0); MEAN CORPUSCULAR HGB CONC 30.1 G/DL (32.0-36.0); MEAN CORPUSCULAR VOLUME 86 FL (80-99); MEAN PLATELET VOLUME 6.3 FL (6.5-10.1); PLATELET COUNT 604 K/UL (150-450); RED BLOOD COUNT 3.44 M/UL (4.70-6.10); RED CELL DISTRIBUTION WIDTH 16.2 % (11.6-14.8); WHITE BLOOD COUNT 10.3 K/UL (4.8-10.8)
[2017-06-07 06:07] LABS: ALANINE AMINOTRANSFERASE 16 U/L (3-41); ALBUMIN/GLOBULIN RATIO 0.7 (1.0-2.7); ANION GAP 12 (5-15); ASPARTATE AMINO TRANSFERASE 17 U/L (5-40); CALCIUM 9.4 mg/dL (8.6-10.2); CARBON DIOXIDE 27 mEQ/L (20-30); CHLORIDE 113 mEQ/L (98-107); CREATININE 0.7 mg/dL (0.7-1.2); GLOMERULAR FILTRATION RATE > 60 mL/min (>60); HEMOLYSIS 2; SODIUM 152 mEQ/L (135-145); TOTAL PROTEIN 6.8 g/dL (6.6-8.7)
[2017-06-07] MEDS: Meropenem 1 GM in NS 110 ML IVPB SCH ×2 (06:32→14:47)
[2017-06-07 08:00] VITALS: BP 139/72
[2017-06-07] MEDS: Docusate 100mg/10ml Liq GT SCH ×2 (09:00→12:26)
[2017-06-07] MEDS: Colistin for inhalation INH SCH (09:34)
[2017-06-07] MEDS: Tigecycline 50 MG in D5W 110 ML IVPB SCH (10:08)
[2017-06-07] MEDS: Sucralfate 1gm tab GT SCH (10:08)
--- NOTE | 2017-06-07 10:51 | Diagnostic Imaging Report ---
Indication: DYSPNEA Technique: One view of the chest Comparison: 06/04/2017 Findings: Tracheostomy remains. Heart size is normal. Lungs and pleural spaces are clear Impression: No acute process. Unchanged, over 2 days, findings as above.
--- NOTE | 2017-06-07 11:07 | GI Progress Note ---
Assessment/Plan Problems: (1) Sepsis ICD Codes: A41.9 - Sepsis, unspecified organism SNOMED: 22854241 (2) Fecal impaction in rectum ICD Codes: K56.41 - Fecal impaction SNOMED: 47033037 (3) Constipation ICD Codes: K59.00 - Constipation, unspecified SNOMED: 96711001 (4) Protein-calorie malnutrition, severe ICD Codes: E43 - Unspecified severe protein-calorie malnutrition SNOMED: 027330991 (5) Feeding by G-tube ICD Codes: Z93.1 - Gastrostomy status SNOMED: 204143853, 046835877 (6) Sepsis ICD Codes: A41.9 - Sepsis SNOMED: 78333494 (7) Anemia ICD Codes: D64.9 - Anemia, unspecified SNOMED: 828474979 (8) Severe erosive esophagitis Status: stable, unchanged Status Narrative Discussed with Dr. Wilson. Assessment/Plan defer GI procedures given known history of severe esophagitis black tarry stool reported by RN, OB stool positive supportive care stable H&H, prn transfusions GTFs per dietary iron deficiency >> venofer cont ppi GT + carafate bowel regime >> colace + miralax reflux measures fu labs Subjective Subjective limited Objective Last 24 Hour Vital Signs Date Time Temp Pulse Resp B/P (MAP) Pulse Ox O2 Delivery O2 Flow Rate FiO2 06/07/17 10:30 91 16 35 06/07/17 09:45 85 16 100 Mechanical Ventilator 35 06/07/17 09:35 35 06/07/17 09:35 75 14 99 Mechanical Ventilator 35 06/07/17 09:03 92 16 35 06/07/17 08:00 96 06/07/17 08:00 35 06/07/17 07:00 94 16 35 06/07/17 05:26 87 15 35 06/07/17 04:10 97.7 90 14 142/76 100 Mechanical Ventilator 35 06/07/17 04:00 81 06/07/17 04:00 35 06/07/17 02:38 91 17 35 06/07/17 00:41 76 14 35 06/07/17 00:36 98.3 84 22 159/65 100 Mechanical Ventilator 35 06/07/17 00:00 69 06/06/17 23:13 78 14 35 06/06/17 21:17 73 14 100 Mechanical Ventilator 35 06/06/17 21:04 35 06/06/17 21:04 69 14 100 Mechanical Ventilator 35 06/06/17 21:02 69 14 35 06/06/17 20:00 35 06/06/17 20:00 98.7 77 24 142/74 100 Mechanical Ventilator 35 06/06/17 19:17 82 20 35 06/06/17 19:07 80 06/06/17 17:38 100 24 35 06/06/17 16:00 77 06/06/17 16:00 35 06/06/17 15:34 97.6 85 16 157/80 100 Mechanical Ventilator 35 06/06/17 15:20 79 16 35 06/06/17 13:15 95 16 35 06/06/17 12:49 97.9 96 16 151/91 100 Mechanical Ventilator 35 06/06/17 12:00 35 06/06/17 11:51 86 06/06/17 11:24 90 16 35 Intake and Output 06/07/17 06/08/17 19:00 07:00 Intake Total 110 ml Balance 110 ml IV Total 110 ml Laboratory Tests Test 06/07/17 03:25 White Blood Count 10.3 K/UL (4.8-10.8) Red Blood Count 3.44 M/UL (4.70-6.10) L Hemoglobin 8.9 G/DL (14.2-18.0) L Hematocrit 29.5 % (42.0-52.0) L Mean Corpuscular Volume 86 FL (80-99) Mean Corpuscular Hemoglobin 25.8 PG (27.0-31.0) L Mean Corpuscular Hemoglobin Concent 30.1 G/DL (32.0-36.0) L Red Cell Distribution Width 16.2 % (11.6-14.8) H Platelet Count 604 K/UL (150-450) H Mean Platelet Volume 6.3 FL (6.5-10.1) L Neutrophils (%) (Auto) % (45.0-75.0) Lymphocytes (%) (Auto) % (20.0-45.0) Monocytes (%) (Auto) % (1.0-10.0) Eosinophils (%) (Auto) % (0.0-3.0) Basophils (%) (Auto) % (0.0-2.0) Sodium Level 152 mEQ/L (135-145) H Potassium Level 4.0 mEQ/L (3.4-4.9) Chloride Level 113 mEQ/L (98-107) H Carbon Dioxide Level 27 mEQ/L (20-30) Anion Gap 12 (5-15) Blood Urea Nitrogen 27 mg/dL (7-23) H Creatinine 0.7 mg/dL (0.7-1.2) Estimat Glomerular Filtration Rate > 60 mL/min (>60) Glucose Level 117 mg/dL (74-106) H Calcium Level 9.4 mg/dL (8.6-10.2) Total Bilirubin < 0.2 mg/dL (0.0-1.2) Aspartate Amino Transf (AST/SGOT) 17 U/L (5-40) Alanine Aminotransferase (ALT/SGPT) 16 U/L (3-41) Alkaline Phosphatase 109 U/L (40-129) Pro-B-Type Natriuretic Peptide 273 pg/mL (0-125) H Total Protein 6.8 g/dL (6.6-8.7) Albumin 2.9 g/dL (3.5-5.2) L Globulin 3.9 g/dL Albumin/Globulin Ratio 0.7 (1.0-2.7) L Height (Feet): 5 Height (Inches): 6.00 Weight (Pounds): 138 General Appearance: no apparent distress Cardiovascular: normal rate Respiratory/Chest: normal breath sounds, no respiratory distress, other - mech vent Abdominal Exam: normal bowel sounds, GT site - c/d/i Objective black tarry stools as reported by Arabella Black N.P. Jun 07, 2017 11:07
[2017-06-07] MEDS ORDERED: MERREM1 GM IV (11:31)
[2017-06-07] MEDS ORDERED: COLISTIN150 MG INH (11:31)
[2017-06-07] MEDS ORDERED: TYGACIL50 MG IVPB (11:31)
--- NOTE | 2017-06-07 11:36 | Pulmonology Progress Note ---
Assessment/Plan Problems: (1) Respiratory failure, [id number] (2) Aspiration pneumonia (3) Sepsis (4) Feeding by G-tube (5) Debility (6) Prerenal azotemia Assessment/Plan: afebrile, no WBC, h/h stable Respiratory: monitor respiratory rate, adjust FIO2 Cardiac: continue to monitor HR/BP Renal: F/U I&O, keep IV fluid Infectious Disease: check cultures, continue antibiotics Gastrointestinal: hold feedings Endocrine: monitor blood sugar, check HgA1C Neurologic: PRN Morphine Affect: PRN ativan Prophylaxis: Protonix Time Spent (Minutes): 40 Notes Reviewed: renal Subjective ROS Limited/Unobtainable: Yes Constitutional: Reports: no symptoms HEENT: Repors: no symptoms Respiratory: Reports: no symptoms Allergies: Coded Allergies: NO KNOWN DRUG ALLERGIES (Verified Allergy, Unknown, 09/11/16) Objective Last 24 Hour Vital Signs Date Time Temp Pulse Resp B/P (MAP) Pulse Ox O2 Delivery O2 Flow Rate FiO2 06/07/17 10:30 91 16 35 06/07/17 09:45 85 16 100 Mechanical Ventilator 35 06/07/17 09:35 35 06/07/17 09:35 75 14 99 Mechanical Ventilator 35 06/07/17 09:03 92 16 35 06/07/17 08:00 96 06/07/17 08:00 35 06/07/17 07:00 94 16 35 06/07/17 05:26 87 15 35 06/07/17 04:10 97.7 90 14 142/76 100 Mechanical Ventilator 35 06/07/17 04:00 81 06/07/17 04:00 35 06/07/17 02:38 91 17 35 06/07/17 00:41 76 14 35 06/07/17 00:36 98.3 84 22 159/65 100 Mechanical Ventilator 35 06/07/17 00:00 69 06/06/17 23:13 78 14 35 06/06/17 21:17 73 14 100 Mechanical Ventilator 35 06/06/17 21:04 35 06/06/17 21:04 69 14 100 Mechanical Ventilator 35 06/06/17 21:02 69 14 35 06/06/17 20:00 35 06/06/17 20:00 98.7 77 24 142/74 100 Mechanical Ventilator 35 06/06/17 19:17 82 20 35 06/06/17 19:07 80 06/06/17 17:38 100 24 35 06/06/17 16:00 77 06/06/17 16:00 35 06/06/17 15:34 97.6 85 16 157/80 100 Mechanical Ventilator 35 06/06/17 15:20 79 16 35 06/06/17 13:15 95 16 35 06/06/17 12:49 97.9 96 16 151/91 100 Mechanical Ventilator 35 06/06/17 12:00 35 06/06/17 11:51 86 Intake and Output 06/07/17 06/08/17 19:00 07:00 Intake Total 110 ml Balance 110 ml IV Total 110 ml General Appearance: WD/WN HEENT: normocephalic, atraumatic Respiratory/Chest: chest wall non-tender, lungs clear Cardiovascular: normal peripheral pulses, normal rate Abdomen: normal bowel sounds, soft, non tender Genitourinary: normal external genitalia Extremities: no clubbing Skin: no rash Laboratory Tests 06/07/17 03:25: White Blood Count 10.3, Red Blood Count 3.44L, Hemoglobin 8.9L, Hematocrit 29.5L , Mean Corpuscular Volume 86, Mean Corpuscular Hemoglobin 25.8L, Mean Corpuscular Hemoglobin Concent 30.1L, Red Cell Distribution Width 16.2H, Platelet Count 604H, Mean Platelet Volume 6.3L, Neutrophils (%) (Auto) , Lymphocytes (%) (Auto) , Monocytes (%) (Auto) , Eosinophils (%) (Auto) , Basophils (%) (Auto) , Sodium Level 152H, Potassium Level 4.0, Chloride Level 113H, Carbon Dioxide Level 27, Anion Gap 12, Blood Urea Nitrogen 27H, Creatinine 0.7, Estimat Glomerular Filtration Rate > 60, Glucose Level 117H, Calcium Level 9.4, Total Bilirubin < 0.2, Aspartate Amino Transf (AST/SGOT) 17, Alanine Aminotransferase (ALT/SGPT) 16, Alkaline Phosphatase 109, Pro-B-Type Natriuretic Peptide 273H, Total Protein 6.8, Albumin 2.9L, Globulin 3.9, Albumin /Globulin Ratio 0.7L Current Medications Medications (Trade) Dose Ordered Sig/Wanda Route PRN Reason Start Time Stop Time Status Last Admin Dose Admin Acetaminophen (Tylenol) 650 mg Q4H PRN ORAL FEVER 05/31/17 21:45 06/30/17 21:44 Colistimethate Sodium (Colistin *inhalation use only*) 150 mg Q12HR@10,22 INH 06/04/17 12:00 06/11/17 11:59 06/07/17 09:34 Dextrose (Dextrose 50%) STAT PRN IV Hypoglycemia 05/31/17 21:45 06/30/17 21:44 Docusate Sodium (Colace) 100 mg THREE TIMES A DAY GT 06/04/17 13:00 07/04/17 12:59 06/06/17 08:41 Hydrocortisone (Hydrocortisone) 1 applic Q6H PRN TOPIC Apply to skin rash on body 06/05/17 15:00 07/05/17 14:59 06/06/17 10:48 Lansoprazole (Prevacid) 30 mg DAILY GT 06/01/17 09:00 07/01/17 08:59 06/07/17 10:08 Levothyroxine Sodium (Synthroid) 50 mcg ACBREAKFAST GT 06/02/17 06:30 07/01/17 08:59 06/07/17 06:32 Lorazepam (Ativan 2mg/ml 1ml) 2 mg EVERY 2 HOURS PRN IV For Anxiety 05/31/17 21:45 06/07/17 21:44 06/07/17 04:26 Meropenem 1 gm/ Sodium Chloride 110 ml @ 220 mls/hr Q8HR IVPB 06/04/17 16:00 06/09/17 15:59 06/07/17 06:32 Morphine Sulfate (Morphine Sulfate) 4 mg EVERY 4 HOURS PRN IVP Severe Pain (Pain Scale 7-10) 05/31/17 21:45 06/07/17 21:44 Ondansetron HCl (Zofran) 4 mg Q6H PRN IVP Nausea & Vomiting 05/31/17 21:45 06/30/17 21:44 Polyethylene Glycol (Miralax) 17 gm BEDTIME ORAL 06/04/17 21:00 07/04/17 20:59 06/05/17 20:25 Polyethylene Glycol (Miralax) 17 gm DAILYPRN PRN ORAL Constipation 05/31/17 21:45 06/30/17 21:44 Sucralfate (Carafate) 1 gm BID GT 06/04/17 18:00 07/04/17 17:59 06/07/17 10:08 Tigecycline 50 mg/ Dextrose 110 ml @ 220 mls/hr EVERY 12 HOURS IVPB 06/03/17 21:00 06/10/17 20:59 06/07/17 10:08 MIKAYLA WILLOUGHBY Jun 07, 2017 11:36
[2017-06-07 12:00] VITALS: BP 137/72
--- NOTE | 2017-06-08 11:01 | Discharge Summary ---
Discharge Summary Hospital Course Date of Admission May 31, 2017 at 19:46 Date of Discharge Jun 07, 2017 at 16:18 Admitting Diagnosis sepsis- HPI Maldonado Huffman is a 66 year old male who was admitted on May 31, 2017 at 19: 46 for Sepsis Hospital Course [id number] Discharge Discharge Disposition Patient was discharged to SNF/Subacute Facility(03) Discharge Diagnoses: Yuly Montemayor NP Jun 08, 2017 11:01
--- NOTE | 2017-06-09 05:30 | Discharge Summary 2 SIG ---
DATE OF ADMISSION: 05/31/2017 DATE OF DISCHARGE: 06/07/2017 CONSULTANTS: 1. Vitaliy Wilson M.D. 2. Cesario Daniels M.D. Brief Hospital Course: The patient is a 66-year-old male with medical history of vent-dependent respiratory failure on trach, dysphagia with G-tube, CVA with residual hemiplegia, hypertension, hypothyroidism, severe erosive gastritis, anemia, recurrent UTI, history of C. difficile colitis, schizophrenia, and chronic encephalopathy was sent from SNF due to abnormal labs. The patient was found to have leukocytosis with WBC count of 19, hemoglobin was 7.5, and hematocrit was 23.9. Workup at ED showed persistent elevated leukocytosis. WBC was 19.9, hemoglobin was 8, and hematocrit 25. The patient was tachycardic and presented with low-grade fever. Urinalysis showed evidence of UTI. Chest x-ray showed right perihilar atelectasis with no acute process otherwise. Sepsis protocol was initiated and the patient was admitted to [facility] for further management. He was started empirically on IV vancomycin and Zosyn. The patient has possible healthcare-associated pneumonia or possible aspiration pneumonia. Sputum culture done showed growth of Acinetobacter and KPC. Urine culture was growing yeast. Antibiotics were discontinued and was switched to Tygacil, colistin, and Merrem. He also had a rash and was given ivermectin and permethrin. Tube feedings were resumed. He was given proton pump inhibitors. Carafate was added. Anemia workup done from previous admission showed iron deficiency. He was given Venofer intravenous. He had reported black tarry stools. Stool OB was positive. Defer any GI procedures at this time given known history of severe esophagitis. Hemoglobin level is stable and leukocytosis resolved. He was eventually discharged back to [facility]. FINAL DIAGNOSES: 1. Acute on chronic respiratory failure. 2. Aspiration pneumonia. 3. Sepsis. 4. Possible recurrent urinary tract infection. 5. Rash, possible scabies. 6. Dysphagia with gastrostomy tube. 7. Debility. 8. Severe erosive esophagitis. 9. Severe protein-calorie malnutrition. 10. Constipation. 11. Fecal impaction. 12. 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 13. Schizophrenia. 14. Functional quadriplegia. 15. Hypothyroidism. Discharge Disposition: The patient was discharged back to [facility]. Discharge Medications: Refer to medication list. Continue antibiotics for 10 more days. Huma Keating M.D. I have been assigned to dictate discharge summary on this account and I was not involved in the patient's management. Yuly Montemayor N.P. DR: ABE JOB#: [id number] CC: KENDRICK
== END 2017-06-07 16:18 | DRG 870 ==
LOC: EDBD 19:02 → EMR 19:16 → 2W 19:46 → EDBEDREQ 20:53
PROC: 5A1955Z Respiratory Ventilation, Greater than 96 Consecutive Hours (ICD-10-PCS; principal; 2017-05-31)
DX: A41.9 Sepsis, unspecified organism (principal); J96.20 Acute and chronic respiratory failure, unspecified whether with hypoxia or hypercapnia; J69.0 Pneumonitis due to inhalation of food and vomit; E43 Unspecified severe protein-calorie malnutrition; G93.49 Other encephalopathy; Z99.11 Dependence on respirator [ventilator] status; Z43.0 Encounter for attention to tracheostomy; R53.2 Functional quadriplegia; N39.0 Urinary tract infection, site not specified; Z43.1 Encounter for attention to gastrostomy; Z68.1 Body mass index [BMI] 19.9 or less, adult; I69.354 Hemiplegia and hemiparesis following cerebral infarction affecting left non-dominant side; R13.10 Dysphagia, unspecified; E03.9 Hypothyroidism, unspecified; F20.9 Schizophrenia, unspecified; B86 Scabies; K20.8 Other esophagitis; K59.00 Constipation, unspecified; F03.90 Unspecified dementia, unspecified severity, without behavioral disturbance, psychotic disturbance, mood disturbance, and anxiety; Z22.322 Carrier or suspected carrier of Methicillin resistant Staphylococcus aureus; D47.3 Essential (hemorrhagic) thrombocythemia; I10 Essential (primary) hypertension; Z22.39 Carrier of other specified bacterial diseases; D50.9 Iron deficiency anemia, unspecified
CPT/HCPCS: 36415; 36600; 71010; 74000; 80048; 80053; 80069; 80202; 81003; 82270; 82550; 82553; 82803; 83540; 83550; 83605; 83735; 83880; 84100; 84443; 84484; 85007; 85025; 85610; 85651; 85730; 86140; 87040; 87070; 87086; 87181; 87205; 87324; 93005; 93970; 94002; 94003; 94640; 99285

== ENCOUNTER 2017-06-27 22:48 | Inpatient (IN) | payer MEDICARE, MEDICAID ==
[~2017-06-27] VITALS: Ht 182.9 cm; Wt 61.7 kg
[~2017-06-27 22:48] MED LIST changes: +BACTRIM DS TAB1 EAC1 GT; +MERREM1 GM IV; +TYGACIL50 MG IVPB; +VANCOMYCIN1 GM/2502 IVPB; +triamcinolone cream TOPIC
[2017-06-27 23:00] VITALS: BP 100/55
[2017-06-27] MEDS ORDERED: BISACODYL5 MG ORAL (23:09)
[2017-06-27] MEDS ORDERED: Albuterol/Ipratropium 3ml neb HHN PRN (23:30)
[2017-06-27] MEDS ORDERED: Miralax 17gm pkt ORAL PRN (23:30)
[2017-06-27] MEDS ORDERED: LORazepam Inj 2mg/ml 1ml IV PRN (23:30)
[2017-06-27] MEDS ORDERED: Morphine Sulfate 4mg/ml Inj IVP PRN (23:30)
[2017-06-28] VITALS (22 sets, daily range): BP systolic 85–116; BP diastolic 36–102
[2017-06-28 00:37] LABS: HEMATOCRIT 32.1 % (42.0-52.0); HEMOGLOBIN 9.7 G/DL (14.2-18.0); MEAN CORPUSCULAR VOLUME 87 FL (80-99); PLATELET COUNT 293 K/UL (150-450); RED CELL DISTRIBUTION WIDTH 17.8 % (11.6-14.8)
[2017-06-28 00:38] LABS: APPEARANCE,URINE SLIGHTLY CLOUDY; BILIRUBIN, URINE NEGATIVE (NEGATIVE); GLUCOSE, URINE (UA) NEGATIVE (NEGATIVE); KETONES,URINE NEGATIVE (NEGATIVE); LEUKOCYTE ESTERASE ,URINE 3+ (NEGATIVE); NITRITE,URINE NEGATIVE (NEGATIVE); PH,URINE 7 (4.5-8.0); PROTEIN,URINE 2+ (NEGATIVE); UROBILINOGEN,URINE NORMAL MG/DL (0.0-1.0)
[2017-06-28 00:46] LABS: WHITE BLOOD COUNT 30.4 K/UL (4.8-10.8)
[2017-06-28 00:51] LABS: COLOR,URINE YELLOW
--- NOTE | 2017-06-28 00:51 | Emergency Room Report ---
History of Present Illness General Chief Complaint: Abnormal Labs Source: Medical Record Present Illness HPI Patient is a 66-year-old male sent in by nursing facility after increased white blood count. The patient was noted to be ventilator dependent and tracheostomy dependent. He had prior history of G-tube. Patient was noted to have white blood count greater than 30,000. The patient presented emergency department for further evaluation. History is markedly limited by patient's mental status and poor historian Allergies: Coded Allergies: NO KNOWN DRUG ALLERGIES (Verified Allergy, Unknown, 09/11/16) Patient History Past Medical History: see triage record Reviewed Nursing Documentation: PMH: Agreed, PSxH: Agreed Nursing Documentation-PMH Hx Cardiac Problems: Yes Hx Hypertension: Yes Hx Asthma: Yes Hx COPD: No Hx Diabetes: Yes Hx Cancer: No Hx Gastrointestinal Problems: Yes - gastritis,peptic ulcer Hx Dialysis: Yes - pre renal azotemia, uti Hx Neurological Problems: Yes Hx Cerebrovascular Accident: Yes Hx Transient Ischemic Attacks: Yes Hx Dementia: Yes Hx Alzheimer's Disease: Yes Hx Parkinson's Disease: Yes Hx Encephalitis: Yes Hx Seizures: Yes Hx Epilepsy: Yes Hx Paralysis: Yes - HEMIPLEGIA Hx Concentration Difficulty: Yes Hx Speech Problem: Yes Hx Aphasia: Yes Hx Weakness: Yes Hx Fatigue: Yes Hx Neurologic Surgery: No Hx Brain Shunt: No Review of Systems All Other Systems: limited - by poor historian Physical Exam Vital Signs Date Time Temp Pulse Resp B/P (MAP) Pulse Ox O2 Delivery O2 Flow Rate FiO2 06/27/17 22:54 99.9 102 20 75/51 99 Trach Collar 5.0 06/27/17 23:02 35 Sp02 EP Interpretation: reviewed, normal General Appearance: normal inspection, alert, Chronically Ill Head: atraumatic Eyes: bilateral eye PERRL ENT: normal ENT inspection, hearing grossly normal, normal voice Neck: normal inspection, supple, no bony tend, limited range of motion Respiratory: normal inspection, lungs clear, normal breath sounds, no respiratory distress, no retraction, no wheezing Cardiovascular #1: no edema, tachycardia Gastrointestinal: normal inspection, normal bowel sounds, non tender, soft, no guarding, no hernia, other - gtube site c/d/i Genitourinary: no CVA tenderness Musculoskeletal: normal inspection, back normal, normal range of motion Neurologic: responsive Psychiatric: mood/affect normal Skin: normal inspection, normal color, no rash Medical Decision Making Diagnostic Impression: Primary Impression: Sepsis Additional Impressions: Alzheimer's dementia Tracheostomy dependence ER Course Patient presented for abnormal lab tests. Differential diagnosis included wasn' t limited to sepsis, leukemoid reaction, C. difficile, urinary tract infection among othersBecause of complexity of patient's case laboratory testing and imaging studies were ordered.A repeat laboratory testing was notable for elevated white blood count.The patient had improvement in his blood pressure after IV fluids The patient started on IV antibiotics.Dr. Keating was contacted for inpatient management due to complexity of medical condition. Labs Test 06/27/17 23:16 06/27/17 23:30 06/27/17 23:37 White Blood Count 30.4 K/UL (4.8-10.8) Red Blood Count 3.70 M/UL (4.70-6.10) Hemoglobin 9.7 G/DL (14.2-18.0) Hematocrit 32.1 % (42.0-52.0) Mean Corpuscular Volume 87 FL (80-99) Mean Corpuscular Hemoglobin 26.2 PG (27.0-31.0) Mean Corpuscular Hemoglobin Concent 30.2 G/DL (32.0-36.0) Red Cell Distribution Width 17.8 % (11.6-14.8) Platelet Count 293 K/UL (150-450) Mean Platelet Volume 8.2 FL (6.5-10.1) Neutrophils (%) (Auto) % (45.0-75.0) Lymphocytes (%) (Auto) % (20.0-45.0) Monocytes (%) (Auto) % (1.0-10.0) Eosinophils (%) (Auto) % (0.0-3.0) Basophils (%) (Auto) % (0.0-2.0) Sodium Level 130 MMOL/L (136-145) Potassium Level 3.2 MMOL/L (3.5-5.1) Chloride Level 101 MMOL/L (98-107) Carbon Dioxide Level 17 MMOL/L (21-32) Anion Gap 12 mmol/L (5-15) Blood Urea Nitrogen 37 mg/dL (7-18) Creatinine 1.3 MG/DL (0.55-1.30) Estimat Glomerular Filtration Rate 54.9 mL/min (>60) Glucose Level 122 MG/DL (74-106) Lactic Acid Level 3.30 mmol/L (0.66-2.22) Calcium Level 8.9 MG/DL (8.5-10.1) Total Bilirubin 0.3 MG/DL (0.2-1.0) Aspartate Amino Transf (AST/SGOT) 58 U/L (15-37) Alanine Aminotransferase (ALT/SGPT) 57 U/L (12-78) Alkaline Phosphatase 179 U/L (46-116) Troponin I 0.048 ng/mL (0.000-0.056) Total Protein 6.6 G/DL (6.4-8.2) Albumin 1.9 G/DL (3.4-5.0) Globulin 4.7 g/dL Albumin/Globulin Ratio 0.4 (1.0-2.7) Urine Color Yellow Urine Appearance Slightly cloudy Urine pH 7 (4.5-8.0) Urine Specific [place] 1.010 (1.005-1.035) Urine Protein 2+ (NEGATIVE) Urine Glucose (UA) Negative (NEGATIVE) Urine Ketones Negative (NEGATIVE) Urine Occult Blood 4+ (NEGATIVE) Urine Nitrite Negative (NEGATIVE) Urine Bilirubin Negative (NEGATIVE) Urine Urobilinogen Normal MG/DL (0.0-1.0) Urine Leukocyte Esterase 3+ (NEGATIVE) Urine RBC 40-60 /HPF (0 - 0) Urine WBC Tntc /HPF (0 - 0) Urine Squamous Epithelial Cells Few /LPF (NONE/OCC) Urine Bacteria Moderate /HPF (NONE) Arterial Blood pH 7.404 (7.350-7.450) Arterial Blood Partial Pressure CO2 25.0 mmHg (35.0-45.0) Arterial Blood Partial Pressure O2 255.2 mmHg (75.0-100.0) Arterial Blood HCO3 15.3 mmol/L (22.0-26.0) Arterial Blood Oxygen Saturation 99.2 % (92.0-98.0) Arterial Blood Base Excess -8.1 Ger Test Positive Labs Test 06/27/17 23:16 06/27/17 23:30 06/27/17 23:37 White Blood Count 30.4 K/UL (4.8-10.8) Red Blood Count 3.70 M/UL (4.70-6.10) Hemoglobin 9.7 G/DL (14.2-18.0) Hematocrit 32.1 % (42.0-52.0) Mean Corpuscular Volume 87 FL (80-99) Mean Corpuscular Hemoglobin 26.2 PG (27.0-31.0) Mean Corpuscular Hemoglobin Concent 30.2 G/DL (32.0-36.0) Red Cell Distribution Width 17.8 % (11.6-14.8) Platelet Count 293 K/UL (150-450) Mean Platelet Volume 8.2 FL (6.5-10.1) Neutrophils (%) (Auto) % (45.0-75.0) Lymphocytes (%) (Auto) % (20.0-45.0) Monocytes (%) (Auto) % (1.0-10.0) Eosinophils (%) (Auto) % (0.0-3.0) Basophils (%) (Auto) % (0.0-2.0) Arterial Blood pH 7.404 (7.350-7.450) Arterial Blood Partial Pressure CO2 25.0 mmHg (35.0-45.0) Arterial Blood Partial Pressure O2 255.2 mmHg (75.0-100.0) Arterial Blood HCO3 15.3 mmol/L (22.0-26.0) Arterial Blood Oxygen Saturation 99.2 % (92.0-98.0) Arterial Blood Base Excess -8.1 Ger Test Positive EKG Diagnostic Results Rate: tachycardiac - 100 Rhythm: NSR ST Segments: no acute changes Chest X-Ray Diagnostic Results Chest X-Ray Diagnostic Results : Chest X-Ray Ordered: Yes # of Views/Limited/Complete: 1 View Indication: Shortness of Breath EP Interpretation: Yes Interpretation: no consolidation, no effusion, no pneumothorax Impression: No acute disease Electronically Signed by: Electronically signed by Dr. Brian Ma M.D. Last Vital Signs Date Time Temp Pulse Resp B/P (MAP) Pulse Ox O2 Delivery O2 Flow Rate FiO2 06/28/17 00:43 35 06/27/17 23:04 103 19 Mechanical Ventilator 06/27/17 23:00 99.8 100/55 100 06/27/17 22:54 5.0 Status: unchanged Disposition: ADMITTED INPATIENT Condition: Serious Referrals: MIKAYLA KEATING (PCP) Brian Ma Jun 28, 2017 00:51
[2017-06-28 01:04] LABS: ALANINE AMINOTRANSFERASE 57 U/L (12-78); ALBUMIN 1.9 G/DL (3.4-5.0); ALBUMIN/GLOBULIN RATIO 0.4 (1.0-2.7); ALKALINE PHOSPHATASE 179 U/L (46-116); ANION GAP 12 mmol/L (5-15); ASPARTATE AMINO TRANSFERASE 58 U/L (15-37); BILIRUBIN,TOTAL 0.3 MG/DL (0.2-1.0); BLOOD UREA NITROGEN 37 mg/dL (7-18); CALCIUM 8.9 MG/DL (8.5-10.1); CARBON DIOXIDE 17 MMOL/L (21-32); CHLORIDE 101 MMOL/L (98-107); CREATININE 1.3 MG/DL (0.55-1.30); POTASSIUM 3.2 MMOL/L (3.5-5.1); SODIUM 130 MMOL/L (136-145)
[2017-06-28 01:33] LABS: CKMB 1.9 NG/ML (0.0-3.6); CREATINE KINASE 45 U/L (26-308)
[2017-06-28] MEDS ORDERED: Ertapenem (INVanz) 1gm Inj ONE (02:15)
[2017-06-28] MEDS ORDERED: Vancomycin 1gm inj IVPB ONE (02:16)
[2017-06-28] MEDS ORDERED: Amikacin 500mg/2mL Inj ONE ×2 (02:17→03:14)
[2017-06-28] MEDS: Ertapenem 1 GM in NS 55 ML IV SCH (02:22)
[2017-06-28] MEDS: Amikacin 900 MG in NS 110 ML IV SCH (03:02)
[2017-06-28 03:59] LABS: HEMATOCRIT 33.3 % (42.0-52.0); HEMOGLOBIN 10.1 G/DL (14.2-18.0); MEAN CORPUSCULAR VOLUME 86 FL (80-99); PLATELET COUNT 339 K/UL (150-450); RED BLOOD COUNT 3.87 M/UL (4.70-6.10); RED CELL DISTRIBUTION WIDTH 18.1 % (11.6-14.8)
[2017-06-28] MEDS ORDERED: Vancomycin 1 GM in D5W 275 ML IVPB ONE (04:00)
[2017-06-28 04:05] LABS: WHITE BLOOD COUNT 37.3 K/UL (4.8-10.8)
[2017-06-28 04:14] LABS: ALANINE AMINOTRANSFERASE 61 U/L (12-78); ALBUMIN 2.1 G/DL (3.4-5.0); ALBUMIN/GLOBULIN RATIO 0.4 (1.0-2.7); ALKALINE PHOSPHATASE 188 U/L (46-116); ANION GAP 11 mmol/L (5-15); ASPARTATE AMINO TRANSFERASE 66 U/L (15-37); BILIRUBIN,DIRECT 0.2 MG/DL (0.0-0.3); BILIRUBIN,TOTAL 0.4 MG/DL (0.2-1.0); BLOOD UREA NITROGEN 32 mg/dL (7-18); CALCIUM 9.2 MG/DL (8.5-10.1); CARBON DIOXIDE 19 MMOL/L (21-32); CHLORIDE 102 MMOL/L (98-107); CREATININE 1.1 MG/DL (0.55-1.30); POTASSIUM 3.3 MMOL/L (3.5-5.1); SODIUM 132 MMOL/L (136-145)
--- NOTE | 2017-06-28 08:10 | Wound Care Consultation ---
Wound Assessment Wound Assessment #1: Wound Number: 1 Wound Present on Admission: Yes New Wound: No Status Change of Wound: No Wound Location Body Site Modif: mid Wound Location Body Site: coccyx - extending to left and right inner buttocks Wound Type: pressure ulcer Meño Test: Does not Meño Pressure Ulcer Stage: II - scattered Wound Thickness: Partial Thickness Percent of Wound [place]/Red: 100 Wound Drainage Description: Serosanguineous Wound Drainage Amount: Scant Wound Drainage Odor: None/Absent Tissue Surrounding Wound: Erythemic Wound General Appearance: Reddened, Draining Wound Assessment #2: Wound Number: 2 Wound Present on Admission: Yes New Wound: No Status Change of Wound: No Wound Location Body Site: perineal area Wound Type: chemical burn Meño Test: Does not Meño Percent of Wound [place]/Red: 100 Wound Drainage Amount: None Wound Drainage Odor: None/Absent Tissue Surrounding Wound: Erythemic Wound General Appearance: Reddened Wound Assessment #3: Wound Number: 3 Wound Present on Admission: Yes New Wound: No Status Change of Wound: No Wound Location Body Site Modif: mid Wound Location Body Site: sacral Wound Type: pressure ulcer Meño Test: Does not Meño Pressure Ulcer Stage: I Wound Length: 2.5 Wound Width: 3.5 Percent of Wound [place]/Red: 100 Wound Drainage Amount: None Wound Drainage Odor: None/Absent Tissue Surrounding Wound: Erythemic Wound General Appearance: Reddened Wound Comment #1 coccygeal area scattered stage II pressure extending to left and right inner buttocks #2 Self inflicted scratch marquez on lower and upper extremities #3 Chemical burn on perineal area #4 Sacral stage I pressure ulcer Recommendation -Coccygeal area scattered stage II pressure extending to left and right inner buttocks, Sacral stage I pressure ulcer and perineal area with chemical burn Cleanse with saline, pat dry, apply Triad cream, Leave area open to air BID and PRN soiled/dislodged. -Keep clean and dry -Turn and reposition -Optimize nutrition -Low air loss mattress -Offload both heels -Heel protector on both heels -Assess and f/u accordingly for any changes BAO FORTUNE RN Jun 28, 2017 08:10
--- NOTE | 2017-06-28 08:10 | Wound Care Consultation ---
Wound Assessment Wound Assessment #1: Wound Number: 1 Wound Present on Admission: Yes New Wound: No Status Change of Wound: No Wound Location Body Site Modif: mid Wound Location Body Site: coccyx - extending to left and right inner buttocks Wound Type: pressure ulcer Meño Test: Does not Meño Pressure Ulcer Stage: II - scattered Wound Thickness: Partial Thickness Percent of Wound [place]/Red: 100 Wound Drainage Description: Serosanguineous Wound Drainage Amount: Scant Wound Drainage Odor: None/Absent Tissue Surrounding Wound: Erythemic Wound General Appearance: Reddened, Draining Wound Assessment #2: Wound Number: 2 Wound Present on Admission: Yes New Wound: No Status Change of Wound: No Wound Location Body Site: perineal area Wound Type: chemical burn Meño Test: Does not Meño Percent of Wound [place]/Red: 100 Wound Drainage Amount: None Wound Drainage Odor: None/Absent Tissue Surrounding Wound: Erythemic Wound General Appearance: Reddened Wound Assessment #3: Wound Number: 3 Wound Present on Admission: Yes New Wound: No Status Change of Wound: No Wound Location Body Site Modif: mid Wound Location Body Site: sacral Wound Type: pressure ulcer Meño Test: Does not Meño Pressure Ulcer Stage: I Wound Length: 2.5 Wound Width: 3.5 Percent of Wound [place]/Red: 100 Wound Drainage Amount: None Wound Drainage Odor: None/Absent Tissue Surrounding Wound: Erythemic Wound General Appearance: Reddened Wound Comment #1 coccygeal area scattered stage II pressure extending to left and right inner buttocks #2 Self inflicted scratch marquez on lower and upper extremities #3 Chemical burn on perineal area #4 Sacral stage I pressure ulcer Recommendation -Coccygeal area scattered stage II pressure extending to left and right inner buttocks, Sacral stage I pressure ulcer and perineal area with chemical burn Cleanse with saline, pat dry, apply Triad cream, Leave area open to air BID and PRN soiled/dislodged. -Keep clean and dry -Turn and reposition -Optimize nutrition -Low air loss mattress -Offload both heels -Heel protector on both heels -Assess and f/u accordingly for any changes BAO FORTUNE RN Jun 28, 2017 08:10
--- NOTE | 2017-06-28 08:10 | Wound Care Consultation ---
Wound Assessment Wound Assessment #1: Wound Number: 1 Wound Present on Admission: Yes New Wound: No Status Change of Wound: No Wound Location Body Site Modif: mid Wound Location Body Site: coccyx - extending to left and right inner buttocks Wound Type: pressure ulcer Meño Test: Does not Meño Pressure Ulcer Stage: II - scattered Wound Thickness: Partial Thickness Percent of Wound [place]/Red: 100 Wound Drainage Description: Serosanguineous Wound Drainage Amount: Scant Wound Drainage Odor: None/Absent Tissue Surrounding Wound: Erythemic Wound General Appearance: Reddened, Draining Wound Assessment #2: Wound Number: 2 Wound Present on Admission: Yes New Wound: No Status Change of Wound: No Wound Location Body Site: perineal area Wound Type: chemical burn Meño Test: Does not Meño Percent of Wound [place]/Red: 100 Wound Drainage Amount: None Wound Drainage Odor: None/Absent Tissue Surrounding Wound: Erythemic Wound General Appearance: Reddened Wound Assessment #3: Wound Number: 3 Wound Present on Admission: Yes New Wound: No Status Change of Wound: No Wound Location Body Site Modif: mid Wound Location Body Site: sacral Wound Type: pressure ulcer Meño Test: Does not Meño Pressure Ulcer Stage: I Wound Length: 2.5 Wound Width: 3.5 Percent of Wound [place]/Red: 100 Wound Drainage Amount: None Wound Drainage Odor: None/Absent Tissue Surrounding Wound: Erythemic Wound General Appearance: Reddened Wound Comment #1 coccygeal area scattered stage II pressure extending to left and right inner buttocks #2 Self inflicted scratch marquez on lower and upper extremities #3 Chemical burn on perineal area #4 Sacral stage I pressure ulcer Recommendation -Coccygeal area scattered stage II pressure extending to left and right inner buttocks, Sacral stage I pressure ulcer and perineal area with chemical burn Cleanse with saline, pat dry, apply Triad cream, Leave area open to air BID and PRN soiled/dislodged. -Keep clean and dry -Turn and reposition -Optimize nutrition -Low air loss mattress -Offload both heels -Heel protector on both heels -Assess and f/u accordingly for any changes BAO FORTUNE RN Jun 28, 2017 08:10
[2017-06-28] MEDS: Heparin 5000 units/ml inj SUBQ SCH ×2 (09:00→21:32)
[2017-06-28] MEDS: Pantoprazole Inj IVP SCH (09:21)
[2017-06-28] MEDS ORDERED: KCl 10% 40mEq/30ml liquid GT ONE (09:30)
--- NOTE | 2017-06-28 10:19 | History and Physical ---
History of Present Illness General Date patient seen: Jun 27, 2017 Reason for Hospitalization: Abnormal Labs Present Illness HPI 66-year-old male with chronic trach/vent Peg, bed bound, cachectic sent in by nursing facility after increased white blood count. The patient presented emergency department for further evaluation. Patient was hypotensive in Er and received aggressive IV hydration and being transferred to ICU. Allergies: Coded Allergies: NO KNOWN DRUG ALLERGIES (Verified Allergy, Unknown, 09/11/16) Medication History Scheduled Amlodipine Besylate (Norvasc), 2.5 MG ORAL DAILY Ascorbic Acid* (Vitamin C*), 500 MG GT DAILY, (Reported) Bisacodyl* (Dulcolax*), 10 MG ORAL DAILY, (Reported) Colistimethate Sodium (Colistin), 75 MG INH Q12HR@10,22 Colistimethate Sodium (Colistin), 150 MG INH Q12HR@10,22 Docusate Sodium* (Docusate Sodium*), 100 MG GT TWICE A DAY, (Reported) Famotidine (Famotidine), 20 MG GT DAILY, (Reported) Ferrous Sulfate (Ferrous Sulfate), 7.5 ML NG TWICE A DAY, (Reported) Folic Acid* (Folic Acid*), 1 MG GT DAILY, (Reported) Levothyroxine Sodium* (Levothyroxine Sodium*), 50 MCG GT DAILY, (Reported) Magnesium Hydroxide* (Milk Of Magnesia*), 30 ML GT HS, (Reported) Meropenem (Merrem), 1 GM IV EVERY 8 HOURS Meropenem-0.9% Sodium Chloride (Meropenem-0.9% NaCl 1 Gram/50), 1 GM IV EVERY 8 HOURS Multivitamin Liquid* (Multi-Delyn*), 15 ML GT DAILY, (Reported) Orfqdqlppfjf-Fghw-Wgdgonsn,Iso (Zosyn 3.375 Gm Pre Mix-Bag), 3.375 GM IVPB EVERY 8 HOURS Protein Supplement (Promod), 30 ML GT DAILY, (Reported) Sucralfate* (Carafate*), 1 GM GT FOUR TIMES A DAY, (Reported) Tigecycline (Tygacil), 50 MG IVPB EVERY 12 HOURS Trimethoprim/Sulfamethoxazole 160/800* (Bactrim Ds Tablet*), 1 TAB GT BID, ( Reported) Vancomycin Hcl/D5w (Vancomycin-D5w 1 G/250 Ml), 750 GM IVPB Q12HR, (Reported) Zinc Sulfate (Zinc Sulfate*), 220 MG ORAL DAILY, (Reported) [triamcinolone cream], 0.1 % TOPIC BID, (Reported) Scheduled PRN Acetaminophen (Acetaminophen), 640 MG GT Q4HR PRN for Prn Headache/Temp > 101, ( Reported) Bisacodyl (Dulcolax), 10 MG RC NEEDED PRN for Constipation, (Reported) Ipratropium/Albuterol Sulfate (DuoNeb 0.5-3(2.5)mg/3ml), 3 ML HHN Q4H PRN for Shortness of Breath Miscellaneous Medications Cran/Vitc/Mannose/Inulin/Brom (Uti-Stat Liquid), 3,875 MG PO, (Reported) 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 Resuscitation status Full Code Advanced Directive on File No Past Medical/Surgical History Past Medical/Surgical History: (1) Psychosis (2) Debility (3) Alzheimer's dementia (4) MDR Acinetobacter baumannii infection Review of Systems All Other Systems: negative except mentioned in HPI Physical Exam General Appearance: cachetic Lines, tubes and drains: peripheral HEENT: normocephalic, atraumatic Neck: non-tender, normal alignment Respiratory/Chest: chest wall non-tender, lungs clear Cardiovascular/Chest: normal peripheral pulses, normal rate Abdomen: normal bowel sounds, non tender Genitourinary/Rectal: normal genital exam Last 24 Hour Vital Signs Date Time Temp Pulse Resp B/P (MAP) Pulse Ox O2 Delivery O2 Flow Rate FiO2 06/28/17 10:00 104 18 98/58 100 Mechanical Ventilator 35 06/28/17 09:03 104 19 35 06/28/17 09:00 98 20 103/45 100 Mechanical Ventilator 35 06/28/17 08:00 99 06/28/17 08:00 35 06/28/17 08:00 98.9 98 20 90/44 100 Mechanical Ventilator 35 06/28/17 07:20 91 21 35 06/28/17 07:00 93 19 97/45 100 Mechanical Ventilator 35 06/28/17 06:00 94 19 107/61 100 Mechanical Ventilator 35 06/28/17 05:09 97 19 35 06/28/17 05:00 98 18 105/63 100 Mechanical Ventilator 35 06/28/17 04:00 98.8 98 18 105/63 100 Mechanical Ventilator 35 06/28/17 03:23 95 19 35 06/28/17 03:00 101 16 96/61 100 Mechanical Ventilator 35 06/28/17 02:04 101 16 96/61 100 Mechanical Ventilator 35 06/28/17 01:55 35 06/28/17 01:52 105 22 127/68 100 Trach Collar 06/28/17 01:45 99.0 105 16 116/73 100 Mechanical Ventilator 35 06/28/17 01:45 105 06/28/17 01:30 103/85 06/28/17 01:28 98 21 35 06/28/17 00:43 35 06/27/17 23:04 103 19 Mechanical Ventilator 35 06/27/17 23:02 103 19 35 06/27/17 23:00 99.8 104 24 100/55 100 Trach Collar 06/27/17 22:54 99.9 102 20 75/51 99 Trach Collar 5.0 Intake and Output 06/28/17 06/29/17 19:00 07:00 Intake Total 30 ml Output Total 180 ml Balance -150 ml Other 30 ml Output Urine Total 180 ml Laboratory Tests Test 06/27/17 23:16 06/27/17 23:30 06/27/17 23:37 06/28/17 03:00 White Blood Count 30.4 K/UL (4.8-10.8) *H 37.3 K/UL (4.8-10.8) *H Red Blood Count 3.70 M/UL (4.70-6.10) L 3.87 M/UL (4.70-6.10) L Hemoglobin 9.7 G/DL (14.2-18.0) L 10.1 G/DL (14.2-18.0) L Hematocrit 32.1 % (42.0-52.0) L 33.3 % (42.0-52.0) L Mean Corpuscular Volume 87 FL (80-99) 86 FL (80-99) Mean Corpuscular Hemoglobin 26.2 PG (27.0-31.0) L 26.1 PG (27.0-31.0) L Mean Corpuscular Hemoglobin Concent 30.2 G/DL (32.0-36.0) L 30.3 G/DL (32.0-36.0) L Red Cell Distribution Width 17.8 % (11.6-14.8) H 18.1 % (11.6-14.8) H Platelet Count 293 K/UL (150-450) 339 K/UL (150-450) Mean Platelet Volume 8.2 FL (6.5-10.1) 8.2 FL (6.5-10.1) Neutrophils (%) (Auto) % (45.0-75.0) % (45.0-75.0) Lymphocytes (%) (Auto) % (20.0-45.0) % (20.0-45.0) Monocytes (%) (Auto) % (1.0-10.0) % (1.0-10.0) Eosinophils (%) (Auto) % (0.0-3.0) % (0.0-3.0) Basophils (%) (Auto) % (0.0-2.0) % (0.0-2.0) Differential Total Cells Counted 100 100 Neutrophils % (Manual) 86 % (45-75) H 83 % (45-75) H Lymphocytes % (Manual) 2 % (20-45) L 2 % (20-45) L Monocytes % (Manual) 2 % (1-10) 6 % (1-10) Eosinophils % (Manual) 0 % (0-3) 0 % (0-3) Basophils % (Manual) 0 % (0-2) 0 % (0-2) Band Neutrophils 10 % (0-8) H 9 % (0-8) H Platelet Estimate Adequate Adequate Platelet Morphology Normal Normal Hypochromasia 1+ 1+ Anisocytosis 1+ 2+ Sodium Level 130 MMOL/L (136-145) L 132 MMOL/L (136-145) L Potassium Level 3.2 MMOL/L (3.5-5.1) L 3.3 MMOL/L (3.5-5.1) L Chloride Level 101 MMOL/L (98-107) 102 MMOL/L (98-107) Carbon Dioxide Level 17 MMOL/L (21-32) L 19 MMOL/L (21-32) L Anion Gap 12 mmol/L (5-15) 11 mmol/L (5-15) Blood Urea Nitrogen 37 mg/dL (7-18) H 32 mg/dL (7-18) H Creatinine 1.3 MG/DL (0.55-1.30) 1.1 MG/DL (0.55-1.30) Estimat Glomerular Filtration Rate 54.9 mL/min (>60) > 60 mL/min (>60) Glucose Level 122 MG/DL (74-106) H 121 MG/DL (74-106) H Lactic Acid Level 3.30 mmol/L (0.66-2.22) H 2.50 mmol/L (0.66-2.22) H Calcium Level 8.9 MG/DL (8.5-10.1) 9.2 MG/DL (8.5-10.1) Total Bilirubin 0.3 MG/DL (0.2-1.0) 0.4 MG/DL (0.2-1.0) Aspartate Amino Transf (AST/SGOT) 58 U/L (15-37) H 66 U/L (15-37) H Alanine Aminotransferase (ALT/SGPT) 57 U/L (12-78) 61 U/L (12-78) Alkaline Phosphatase 179 U/L (46-116) H 188 U/L (46-116) H Total Creatine Kinase 45 U/L (26-308) Creatine Kinase MB 1.9 NG/ML (0.0-3.6) Creatine Kinase MB Relative Index 4.2 Troponin I 0.048 ng/mL (0.000-0.056) Pro-B-Type Natriuretic Peptide 2447 pg/mL (0-125) H Total Protein 6.6 G/DL (6.4-8.2) 7.2 G/DL (6.4-8.2) Albumin 1.9 G/DL (3.4-5.0) L 2.1 G/DL (3.4-5.0) L Globulin 4.7 g/dL 5.1 g/dL Albumin/Globulin Ratio 0.4 (1.0-2.7) L 0.4 (1.0-2.7) L Urine Color Yellow Urine Appearance Slightly cloudy Urine pH 7 (4.5-8.0) Urine Specific [place] 1.010 (1.005-1.035) Urine Protein 2+ (NEGATIVE) H Urine Glucose (UA) Negative (NEGATIVE) Urine Ketones Negative (NEGATIVE) Urine Occult Blood 4+ (NEGATIVE) H Urine Nitrite Negative (NEGATIVE) Urine Bilirubin Negative (NEGATIVE) Urine Urobilinogen Normal MG/DL (0.0-1.0) Urine Leukocyte Esterase 3+ (NEGATIVE) H Urine RBC 40-60 /HPF (0 - 0) H Urine WBC Tntc /HPF (0 - 0) H Urine Squamous Epithelial Cells Few /LPF (NONE/OCC) Urine Bacteria Moderate /HPF (NONE) H Arterial Blood pH 7.404 (7.350-7.450) Arterial Blood Partial Pressure CO2 25.0 mmHg (35.0-45.0) L Arterial Blood Partial Pressure O2 255.2 mmHg (75.0-100.0) H Arterial Blood HCO3 15.3 mmol/L (22.0-26.0) L Arterial Blood Oxygen Saturation 99.2 % (92.0-98.0) H Arterial Blood Base Excess -8.1 Ger Test Positive Direct Bilirubin 0.2 MG/DL (0.0-0.3) Test 06/28/17 09:20 Arterial Blood pH 7.450 (7.350-7.450) Arterial Blood Partial Pressure CO2 29.1 mmHg (35.0-45.0) L Arterial Blood Partial Pressure O2 129.1 mmHg (75.0-100.0) H Arterial Blood HCO3 19.1 mmol/L (22.0-26.0) L Arterial Blood Oxygen Saturation 98.9 % (92.0-98.0) H Arterial Blood Base Excess -3.3 Ger Test Positive Height (Feet): 6 Height (Inches): 1.00 Weight (Pounds): 136 Medications Current Medications Medications (Trade) Dose Ordered Sig/Wanda Route PRN Reason Start Time Stop Time Status Last Admin Dose Admin Acetaminophen (Tylenol) 650 mg Q4H PRN ORAL fever 06/27/17 23:30 07/27/17 23:29 Albuterol/ Ipratropium (DuoNeb 0.5-3(2.5)mg/3ml) 3 ml Q4H PRN HHN Shortness of Breath 06/27/17 23:30 07/02/17 23:29 Amikacin Sulfate 900 mg/Sodium Chloride 113.6 ml @ 113.6 mls/ hr Q36H IV 06/28/17 03:00 07/05/17 02:59 06/28/17 03:02 Ertapenem 1 gm/ Sodium Chloride 55 ml @ 110 mls/hr Q24H IV 06/28/17 02:00 07/03/17 01:59 06/28/17 02:22 Heparin Sodium (Porcine) (Heparin 5000 units/ml) 5,000 units EVERY 12 HOURS SUBQ 06/28/17 09:00 07/28/17 08:59 Lorazepam (Ativan 2mg/ml 1ml) 2 mg Q2H PRN IV For Anxiety 06/27/17 23:30 07/04/17 23:29 Morphine Sulfate (Morphine Sulfate) 4 mg Q4H PRN IVP Severe Pain (Pain Scale 7-10) 06/27/17 23:30 07/04/17 23:29 Norepinephrine Bitartrate 4 mg/ Dextrose 254 ml @ 0 mls/hr Q24H IV 06/28/17 01:30 07/28/17 01:29 Ondansetron HCl (Zofran) 4 mg Q6H PRN IVP Nausea & Vomiting 06/27/17 23:30 07/27/17 23:29 Pantoprazole (Protonix) 40 mg DAILY IVP 06/28/17 09:00 07/28/17 08:59 06/28/17 09:21 Polyethylene Glycol (Miralax) 17 gm DAILYPRN PRN ORAL Constipation 06/27/17 23:30 07/27/17 23:29 Sodium Chloride 1,000 ml @ 100 mls/hr Q10H IVLG 06/28/17 02:00 07/28/17 01:59 06/28/17 02:25 Vancomycin HCl 500 mg/Dextrose 110 ml @ 110 mls/hr Q12H IVPB 06/28/17 16:00 07/03/17 15:59 Assessment/Plan Problem List: (1) Septic shock ICD Codes: A41.9 - Sepsis, unspecified organism; R65.21 - Severe sepsis with septic shock SNOMED: 80899777 (2) Acute on chronic respiratory failure ICD Codes: J96.20 - Acute and chronic respiratory failure, unspecified whether with hypoxia or hypercapnia SNOMED: 60908366 (3) Acute encephalopathy ICD Codes: G93.40 - Encephalopathy, unspecified SNOMED: 1828235 (4) Leukocytosis ICD Codes: D72.829 - Elevated white blood cell count, unspecified SNOMED: 613613575 (5) Severe erosive esophagitis (6) Gastrostomy tube dependent ICD Codes: Z93.1 - Gastrostomy tube dependent SNOMED: 369066609 (7) Severe protein-calorie malnutrition ICD Codes: E43 - Unspecified severe protein-calorie malnutrition SNOMED: 385653109 Respiratory: monitor respiratory rate, adjust FIO2, CXR Cardiac: continue to monitor HR/BP Renal: F/U I&O, keep IV fluid, increase IV fluid, check electrolytes Infectious Disease: check cultures Gastrointestinal: hold feedings Endocrine: monitor blood sugar Hematologic: monitor H/H Neurologic: PRN Ativan Affect: PRN ativan Prophylaxis: Protonix Notes Reviewed: primer expeditor and drier, 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 with: nurses, consultants, case planner MIKAYLA WILLOUGHBY Jun 28, 2017 10:19
--- NOTE | 2017-06-28 10:23 | Pulmonolgy Critical Care Note ---
Critical Care - Asmt/Plan Problems: (1) Septic shock (2) Acute on chronic respiratory failure (3) Acute encephalopathy (4) Gastrostomy tube dependent (5) Severe protein-calorie malnutrition (6) Severe erosive esophagitis Respiratory: monitor respiratory rate, adjust FIO2, CXR Cardiac: continue to monitor HR/BP Renal: F/U I&O, increase IV fluid, check electrolytes Infectious Disease: check cultures, continue antibiotics, add antibiotics - add vanco and flagyl until Cdiff results are available Gastrointestinal: hold feedings Endocrine: monitor blood sugar Hematologic: monitor H/H Neurologic: PRN Ativan, PRN Morphine Affect: PRN ativan Notes Reviewed: specialist icu, cardio, 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 with: nurses, consultants, director of casework servicesmanager film - Objective Last 24 Hour Vital Signs Date Time Temp Pulse Resp B/P (MAP) Pulse Ox O2 Delivery O2 Flow Rate FiO2 06/28/17 10:00 104 18 98/58 100 Mechanical Ventilator 35 06/28/17 09:03 104 19 35 06/28/17 09:00 98 20 103/45 100 Mechanical Ventilator 35 06/28/17 08:00 99 06/28/17 08:00 35 06/28/17 08:00 98.9 98 20 90/44 100 Mechanical Ventilator 35 06/28/17 07:20 91 21 35 06/28/17 07:00 93 19 97/45 100 Mechanical Ventilator 35 06/28/17 06:00 94 19 107/61 100 Mechanical Ventilator 35 06/28/17 05:09 97 19 35 06/28/17 05:00 98 18 105/63 100 Mechanical Ventilator 35 06/28/17 04:00 98.8 98 18 105/63 100 Mechanical Ventilator 35 06/28/17 03:23 95 19 35 06/28/17 03:00 101 16 96/61 100 Mechanical Ventilator 35 06/28/17 02:04 101 16 96/61 100 Mechanical Ventilator 35 06/28/17 01:55 35 06/28/17 01:52 105 22 127/68 100 Trach Collar 06/28/17 01:45 99.0 105 16 116/73 100 Mechanical Ventilator 35 06/28/17 01:45 105 06/28/17 01:30 103/85 06/28/17 01:28 98 21 35 06/28/17 00:43 35 06/27/17 23:04 103 19 Mechanical Ventilator 35 06/27/17 23:02 103 19 35 06/27/17 23:00 99.8 104 24 100/55 100 Trach Collar 06/27/17 22:54 99.9 102 20 75/51 99 Trach Collar 5.0 Status: sedated Condition: critical HEENT: atraumatic Lungs: clear Heart: HR/BP stable, HR/BP unstable Abdomen: soft, non-tender Extremities: no C/C/E, edema Critical Care - Subjective ROS Limited/Unobtainable: No ICU Day: 2 Condition: critical EKG Rhythm: Sinus Rhythm FI02: 35 Vent Support Breath Rate: 16 Vent Support Mode: AC Vent Tidal Volume: 600 Sputum Amount: Small PEEP: 5.0 PIP: 20 Fluids: NS 150 cc.hour I&O: Intake and Output 06/28/17 06/29/17 19:00 07:00 Intake Total 30 ml Output Total 180 ml Balance -150 ml Other 30 ml Output Urine Total 180 ml CXR: PUMA Labs: Laboratory Tests Test 06/27/17 23:16 06/27/17 23:30 06/27/17 23:37 06/28/17 03:00 White Blood Count 30.4 K/UL (4.8-10.8) *H 37.3 K/UL (4.8-10.8) *H Red Blood Count 3.70 M/UL (4.70-6.10) L 3.87 M/UL (4.70-6.10) L Hemoglobin 9.7 G/DL (14.2-18.0) L 10.1 G/DL (14.2-18.0) L Hematocrit 32.1 % (42.0-52.0) L 33.3 % (42.0-52.0) L Mean Corpuscular Volume 87 FL (80-99) 86 FL (80-99) Mean Corpuscular Hemoglobin 26.2 PG (27.0-31.0) L 26.1 PG (27.0-31.0) L Mean Corpuscular Hemoglobin Concent 30.2 G/DL (32.0-36.0) L 30.3 G/DL (32.0-36.0) L Red Cell Distribution Width 17.8 % (11.6-14.8) H 18.1 % (11.6-14.8) H Platelet Count 293 K/UL (150-450) 339 K/UL (150-450) Mean Platelet Volume 8.2 FL (6.5-10.1) 8.2 FL (6.5-10.1) Neutrophils (%) (Auto) % (45.0-75.0) % (45.0-75.0) Lymphocytes (%) (Auto) % (20.0-45.0) % (20.0-45.0) Monocytes (%) (Auto) % (1.0-10.0) % (1.0-10.0) Eosinophils (%) (Auto) % (0.0-3.0) % (0.0-3.0) Basophils (%) (Auto) % (0.0-2.0) % (0.0-2.0) Differential Total Cells Counted 100 100 Neutrophils % (Manual) 86 % (45-75) H 83 % (45-75) H Lymphocytes % (Manual) 2 % (20-45) L 2 % (20-45) L Monocytes % (Manual) 2 % (1-10) 6 % (1-10) Eosinophils % (Manual) 0 % (0-3) 0 % (0-3) Basophils % (Manual) 0 % (0-2) 0 % (0-2) Band Neutrophils 10 % (0-8) H 9 % (0-8) H Platelet Estimate Adequate Adequate Platelet Morphology Normal Normal Hypochromasia 1+ 1+ Anisocytosis 1+ 2+ Sodium Level 130 MMOL/L (136-145) L 132 MMOL/L (136-145) L Potassium Level 3.2 MMOL/L (3.5-5.1) L 3.3 MMOL/L (3.5-5.1) L Chloride Level 101 MMOL/L (98-107) 102 MMOL/L (98-107) Carbon Dioxide Level 17 MMOL/L (21-32) L 19 MMOL/L (21-32) L Anion Gap 12 mmol/L (5-15) 11 mmol/L (5-15) Blood Urea Nitrogen 37 mg/dL (7-18) H 32 mg/dL (7-18) H Creatinine 1.3 MG/DL (0.55-1.30) 1.1 MG/DL (0.55-1.30) Estimat Glomerular Filtration Rate 54.9 mL/min (>60) > 60 mL/min (>60) Glucose Level 122 MG/DL (74-106) H 121 MG/DL (74-106) H Lactic Acid Level 3.30 mmol/L (0.66-2.22) H 2.50 mmol/L (0.66-2.22) H Calcium Level 8.9 MG/DL (8.5-10.1) 9.2 MG/DL (8.5-10.1) Total Bilirubin 0.3 MG/DL (0.2-1.0) 0.4 MG/DL (0.2-1.0) Aspartate Amino Transf (AST/SGOT) 58 U/L (15-37) H 66 U/L (15-37) H Alanine Aminotransferase (ALT/SGPT) 57 U/L (12-78) 61 U/L (12-78) Alkaline Phosphatase 179 U/L (46-116) H 188 U/L (46-116) H Total Creatine Kinase 45 U/L (26-308) Creatine Kinase MB 1.9 NG/ML (0.0-3.6) Creatine Kinase MB Relative Index 4.2 Troponin I 0.048 ng/mL (0.000-0.056) Pro-B-Type Natriuretic Peptide 2447 pg/mL (0-125) H Total Protein 6.6 G/DL (6.4-8.2) 7.2 G/DL (6.4-8.2) Albumin 1.9 G/DL (3.4-5.0) L 2.1 G/DL (3.4-5.0) L Globulin 4.7 g/dL 5.1 g/dL Albumin/Globulin Ratio 0.4 (1.0-2.7) L 0.4 (1.0-2.7) L Urine Color Yellow Urine Appearance Slightly cloudy Urine pH 7 (4.5-8.0) Urine Specific [place] 1.010 (1.005-1.035) Urine Protein 2+ (NEGATIVE) H Urine Glucose (UA) Negative (NEGATIVE) Urine Ketones Negative (NEGATIVE) Urine Occult Blood 4+ (NEGATIVE) H Urine Nitrite Negative (NEGATIVE) Urine Bilirubin Negative (NEGATIVE) Urine Urobilinogen Normal MG/DL (0.0-1.0) Urine Leukocyte Esterase 3+ (NEGATIVE) H Urine RBC 40-60 /HPF (0 - 0) H Urine WBC Tntc /HPF (0 - 0) H Urine Squamous Epithelial Cells Few /LPF (NONE/OCC) Urine Bacteria Moderate /HPF (NONE) H Arterial Blood pH 7.404 (7.350-7.450) Arterial Blood Partial Pressure CO2 25.0 mmHg (35.0-45.0) L Arterial Blood Partial Pressure O2 255.2 mmHg (75.0-100.0) H Arterial Blood HCO3 15.3 mmol/L (22.0-26.0) L Arterial Blood Oxygen Saturation 99.2 % (92.0-98.0) H Arterial Blood Base Excess -8.1 Ger Test Positive Direct Bilirubin 0.2 MG/DL (0.0-0.3) Test 06/28/17 09:20 Arterial Blood pH 7.450 (7.350-7.450) Arterial Blood Partial Pressure CO2 29.1 mmHg (35.0-45.0) L Arterial Blood Partial Pressure O2 129.1 mmHg (75.0-100.0) H Arterial Blood HCO3 19.1 mmol/L (22.0-26.0) L Arterial Blood Oxygen Saturation 98.9 % (92.0-98.0) H Arterial Blood Base Excess -3.3 Ger Test Positive MIKAYLA WILLOUGHBY Jun 28, 2017 10:23
[2017-06-28] MEDS ORDERED: Lidocaine 1% Plain 30 ml INJ PRN (11:00)
[2017-06-28] MEDS ORDERED: Heparin 2000 units/Ns 1000ml INJ PRN (11:00)
[2017-06-28] MEDS ORDERED: Amikacin Rx to dose MISC PRN (11:30)
--- NOTE | 2017-06-28 12:04 | Diagnostic Imaging Report ---
Indication: Dyspnea Comparison: 06/07/17 A single view chest radiograph was obtained. Findings: Bones are osteopenic. There is old right clavicle fracture. Tracheostomy noted. Heart is normal in size. Lungs are clear. Evaluation limited by rotation. Impression: No acute disease
[2017-06-28] MEDS: Vancomycin oral 125mg/2.5ml ORAL SCH ×3 (13:18→21:00)
[2017-06-28] MEDS ORDERED: Tubing IV Secondary IV ONE ×2 (16:16→16:20)
[2017-06-28] MEDS ORDERED: D5W 275ml ONE (16:20)
[2017-06-28] MEDS: Vancomycin 500mg/D5W 110ml IVPB SCH ×2 (16:54)
--- NOTE | 2017-06-28 19:33 | Consultation ---
Consult Note Consult Note ID CONSULT: Earl# [id number] Assessment/Plan ASSESSMENT: #Probable recurrent urinary tract infection - UCx pending #h/o recurrent MDRO HCAP / VAPs r/o recurrence - SCx pending - CXR 06/27: No acute disease #Incontinence dermatitis #h/o Rash-possible scabies SP Rx #Recurrent severe sepsis #Lactic acidosis - resolved #Leukocytosis - worse, afebrile # History of recurrent upper gastrointestinal bleeding and erosive esophagitis # Chronic ventilator-dependent respiratory failure, status post percutaneous endoscopic gastrostomy tube placement with multiple revisions and replacements. # Chronic encephalopathy/dementia. #. detention resident. #. Functional quadriplegia/bedbound. # Frequent hospital readmissions. # Multidrug-resistant organism colonized including MRSA, VRE, KPC, MDR-ACB # No known drug allergies. #. Full Code. PLAN: - Continue empiric IV vancomycin, amikacin, invanz, flagyl d# 1 pending cultures - f/u cultures - Monitor CBC and temperatures. - Monitor BMP. - Monitor chest x-ray. - Ventilator support, tracheostomy care, and aspiration precautions. - Contact precautions Thanks! Will follow LUNA GOODMAN Jun 28, 2017 19:33
--- NOTE | 2017-06-28 19:33 | Consultation ---
Consult Note Consult Note ID CONSULT: Earl# [id number] Assessment/Plan ASSESSMENT: #Probable recurrent urinary tract infection - UCx pending #h/o recurrent MDRO HCAP / VAPs r/o recurrence - SCx pending - CXR 06/27: No acute disease #Incontinence dermatitis #h/o Rash-possible scabies SP Rx #Recurrent severe sepsis #Lactic acidosis - resolved #Leukocytosis - worse, afebrile # History of recurrent upper gastrointestinal bleeding and erosive esophagitis # Chronic ventilator-dependent respiratory failure, status post percutaneous endoscopic gastrostomy tube placement with multiple revisions and replacements. # Chronic encephalopathy/dementia. #. jail resident. #. Functional quadriplegia/bedbound. # Frequent hospital readmissions. # Multidrug-resistant organism colonized including MRSA, VRE, KPC, MDR-ACB # No known drug allergies. #. Full Code. PLAN: - Continue empiric IV vancomycin, amikacin, invanz, flagyl d# 1 pending cultures - f/u cultures - Monitor CBC and temperatures. - Monitor BMP. - Monitor chest x-ray. - Ventilator support, tracheostomy care, and aspiration precautions. - Contact precautions Thanks! Will follow LUNA GOODMAN Jun 28, 2017 19:33
--- NOTE | 2017-06-28 19:33 | Consultation ---
Consult Note Consult Note ID CONSULT: Earl# [id number] Assessment/Plan ASSESSMENT: #Probable recurrent urinary tract infection - UCx pending #h/o recurrent MDRO HCAP / VAPs r/o recurrence - SCx pending - CXR 06/27: No acute disease #Incontinence dermatitis #h/o Rash-possible scabies SP Rx #Recurrent severe sepsis #Lactic acidosis - resolved #Leukocytosis - worse, afebrile # History of recurrent upper gastrointestinal bleeding and erosive esophagitis # Chronic ventilator-dependent respiratory failure, status post percutaneous endoscopic gastrostomy tube placement with multiple revisions and replacements. # Chronic encephalopathy/dementia. #. assisted resident. #. Functional quadriplegia/bedbound. # Frequent hospital readmissions. # Multidrug-resistant organism colonized including MRSA, VRE, KPC, MDR-ACB # No known drug allergies. #. Full Code. PLAN: - Continue empiric IV vancomycin, amikacin, invanz, flagyl d# 1 pending cultures - f/u cultures - Monitor CBC and temperatures. - Monitor BMP. - Monitor chest x-ray. - Ventilator support, tracheostomy care, and aspiration precautions. - Contact precautions Thanks! Will follow LUNA GOODMAN Jun 28, 2017 19:33
[2017-06-28] MEDS: Dyna-Hex 2% Top Sol 2oz TOPIC SCH (20:00)
--- NOTE | 2017-06-28 20:15 | Consultation ---
DATE OF CONSULTATION: 06/28/2017 INFECTIOUS DISEASE CONSULTATION CONSULTING PHYSICIAN: Abdiel Lamas M.D. REQUESTING PHYSICIAN: Huma Keating M.D. REASON FOR CONSULTATION: Recurrent sepsis. HISTORY OF PRESENT ILLNESS: This is a 66-year-old male, group home resident with a history of chronic encephalopathy, chronic ventilator-dependent respiratory failure, and recurrent multi-drug resistant infections and frequent hospital readmissions, admitted on 06/27/2017 for evaluation of leukocytosis. The patient was found to have a white blood cell count of greater than 30 with left shift. Chest x-ray does not suggest a pulmonary source. Urinalysis suggests possible urinary tract infection. Pancultures are pending and he has been started on empiric IV vancomycin, Invanz, amikacin, and Flagyl. Infectious Disease now consulted to assist in management. PAST MEDICAL HISTORY: 1. 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 2. History of recurrent multi-drug resistant UTIs. 3. History of recurrent sepsis. 4. History of nonobstructive nephrolithiasis. 5. History of recurrent upper gastrointestinal bleeding due to erosive esophagitis. 6. Chronic ventilator-dependent respiratory failure. 7. Chronic encephalopathy. 8. Functional quadriplegia and bedbound. 9. Multi-drug resistant organism colonized including methicillin-resistant Staphylococcus aureus, vancomycin-resistant enterococcus, carbapenem-resistant organisms, and multi-drug resistant Acinetobacter. PAST SURGICAL HISTORY: 1. Tracheostomy. 2. PEG tube placement with multiple revisions. FAMILY HISTORY: Unknown. SOCIAL HISTORY: The patient is a long-term resident of a group home. No active tobacco, alcohol, or illicit drug abuse. ALLERGIES: No known drug allergies. MEDICATIONS: 1. Vancomycin. 2. Invanz. 3. Amikacin. 4. Flagyl. 5. Please refer to MAR for additional medications. REVIEW OF SYSTEMS: Unable to obtain. PHYSICAL EXAMINATION: VITAL SIGNS: Maximum temperature 99.8, blood pressure 115/56, heart rate in the 80s, respiratory rate 20, and saturating 100% on 35% FiO2. GENERAL: No apparent distress. Nonresponsive. HEENT: Tracheostomy tube in place. CARDIOVASCULAR: Regular rate and rhythm. No murmurs. PULMONARY: Coarse breath sounds bilaterally. ABDOMINAL: Bowel sounds present. Soft, nondistended, and nontender. PEG tube in place. EXTREMITIES: No edema. Contracted. LABORATORY DATA: White blood cell count of 37.7 with left shift, hemoglobin 10.1, and platelets 339,000. Sodium 132, potassium 3.3, chloride 102, bicarbonate 19, BUN 32, and creatinine 1.1. Lactic acid 3.3, decreased to 1.3. AST 58, ALT 57, alkaline phosphatase 179, and total bilirubin 0.3. Albumin 1.9. Urinalysis with pyuria and bacteriuria. MICROBIOLOGY: 1. 06/27/2017 blood culture pending. 2. 06/27/2017 urine culture pending. 3. 06/27/2017 sputum culture pending. IMAGIN. 06/27/2017 chest x-ray, no acute findings. 2. 06/27/2017 echocardiogram, ejection fraction of 60% with grade 1 diastolic dysfunction. ASSESSMENT: 1. Probable recurrent urinary tract infection. Urine culture is pending. 2. History of recurrent pneumonias, rule out recurrence. Initial chest x-ray has no acute findings. 3. Incontinence dermatitis. 4. History of rash and possible scabies, status post treatment. 5. Recurrent severe sepsis. 6. Lactic acidosis, resolved. 7. Leukocytosis, worsening and afebrile. 8. History of recurrent upper gastrointestinal bleeding and erosive esophagitis. 9. Chronic ventilator-dependent respiratory failure. 10. Chronic encephalopathy. 11. assisted resident. 12. Functional quadriplegia and bedbound. 13. Recurrent hospital readmission. 14. Multi-drug resistant organism colonized. 15. No known drug allergies. 16. Full Code. PLAN: 1. Continue empiric IV vancomycin, amikacin, Invanz, and Flagyl day #1 pending cultures. 2. Follow up cultures. 3. Monitor CBC and temperatures. 4. Monitor BMP. 5. Monitor chest x-ray. 6. Ventilator support, tracheostomy care, and aspiration precautions. 7. Contact precautions. Thank you. We will follow. Abdiel Lamas M.D. DR: ADARSH JOB#: [id number] CC: uHma Keating M.D.; Fax#: [phone] Abdiel Lamas M.D. GLYNN BURGOS M.D; FAX#: [phone]
--- NOTE | 2017-06-28 20:15 | Consultation ---
DATE OF CONSULTATION: 06/28/2017 INFECTIOUS DISEASE CONSULTATION CONSULTING PHYSICIAN: Abdiel Lamas M.D. REQUESTING PHYSICIAN: Huma Keating M.D. REASON FOR CONSULTATION: Recurrent sepsis. HISTORY OF PRESENT ILLNESS: This is a 66-year-old male, skilled nursing resident with a history of chronic encephalopathy, chronic ventilator-dependent respiratory failure, and recurrent multi-drug resistant infections and frequent hospital readmissions, admitted on 06/27/2017 for evaluation of leukocytosis. The patient was found to have a white blood cell count of greater than 30 with left shift. Chest x-ray does not suggest a pulmonary source. Urinalysis suggests possible urinary tract infection. Pancultures are pending and he has been started on empiric IV vancomycin, Invanz, amikacin, and Flagyl. Infectious Disease now consulted to assist in management. PAST MEDICAL HISTORY: 1. 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 2. History of recurrent multi-drug resistant UTIs. 3. History of recurrent sepsis. 4. History of nonobstructive nephrolithiasis. 5. History of recurrent upper gastrointestinal bleeding due to erosive esophagitis. 6. Chronic ventilator-dependent respiratory failure. 7. Chronic encephalopathy. 8. Functional quadriplegia and bedbound. 9. Multi-drug resistant organism colonized including methicillin-resistant Staphylococcus aureus, vancomycin-resistant enterococcus, carbapenem-resistant organisms, and multi-drug resistant Acinetobacter. PAST SURGICAL HISTORY: 1. Tracheostomy. 2. PEG tube placement with multiple revisions. FAMILY HISTORY: Unknown. SOCIAL HISTORY: The patient is a long-term resident of a skilled nursing. No active tobacco, alcohol, or illicit drug abuse. ALLERGIES: No known drug allergies. MEDICATIONS: 1. Vancomycin. 2. Invanz. 3. Amikacin. 4. Flagyl. 5. Please refer to MAR for additional medications. REVIEW OF SYSTEMS: Unable to obtain. PHYSICAL EXAMINATION: VITAL SIGNS: Maximum temperature 99.8, blood pressure 115/56, heart rate in the 80s, respiratory rate 20, and saturating 100% on 35% FiO2. GENERAL: No apparent distress. Nonresponsive. HEENT: Tracheostomy tube in place. CARDIOVASCULAR: Regular rate and rhythm. No murmurs. PULMONARY: Coarse breath sounds bilaterally. ABDOMINAL: Bowel sounds present. Soft, nondistended, and nontender. PEG tube in place. EXTREMITIES: No edema. Contracted. LABORATORY DATA: White blood cell count of 37.7 with left shift, hemoglobin 10.1, and platelets 339,000. Sodium 132, potassium 3.3, chloride 102, bicarbonate 19, BUN 32, and creatinine 1.1. Lactic acid 3.3, decreased to 1.3. AST 58, ALT 57, alkaline phosphatase 179, and total bilirubin 0.3. Albumin 1.9. Urinalysis with pyuria and bacteriuria. MICROBIOLOGY: 1. 06/27/2017 blood culture pending. 2. 06/27/2017 urine culture pending. 3. 06/27/2017 sputum culture pending. IMAGIN. 06/27/2017 chest x-ray, no acute findings. 2. 06/27/2017 echocardiogram, ejection fraction of 60% with grade 1 diastolic dysfunction. ASSESSMENT: 1. Probable recurrent urinary tract infection. Urine culture is pending. 2. History of recurrent pneumonias, rule out recurrence. Initial chest x-ray has no acute findings. 3. Incontinence dermatitis. 4. History of rash and possible scabies, status post treatment. 5. Recurrent severe sepsis. 6. Lactic acidosis, resolved. 7. Leukocytosis, worsening and afebrile. 8. History of recurrent upper gastrointestinal bleeding and erosive esophagitis. 9. Chronic ventilator-dependent respiratory failure. 10. Chronic encephalopathy. 11. jail resident. 12. Functional quadriplegia and bedbound. 13. Recurrent hospital readmission. 14. Multi-drug resistant organism colonized. 15. No known drug allergies. 16. Full Code. PLAN: 1. Continue empiric IV vancomycin, amikacin, Invanz, and Flagyl day #1 pending cultures. 2. Follow up cultures. 3. Monitor CBC and temperatures. 4. Monitor BMP. 5. Monitor chest x-ray. 6. Ventilator support, tracheostomy care, and aspiration precautions. 7. Contact precautions. Thank you. We will follow. Abdiel Lamas M.D. DR: ADARSH JOB#: [id number] CC: Huma Keating M.D.; Fax#: [phone] Abdiel Lamas M.D. GLYNN BURGOS M.D; FAX#: [phone]
--- NOTE | 2017-06-28 20:15 | Consultation ---
DATE OF CONSULTATION: 06/28/2017 INFECTIOUS DISEASE CONSULTATION CONSULTING PHYSICIAN: Abdiel Lamas M.D. REQUESTING PHYSICIAN: Huma Keating M.D. REASON FOR CONSULTATION: Recurrent sepsis. HISTORY OF PRESENT ILLNESS: This is a 66-year-old male, custodial resident with a history of chronic encephalopathy, chronic ventilator-dependent respiratory failure, and recurrent multi-drug resistant infections and frequent hospital readmissions, admitted on 06/27/2017 for evaluation of leukocytosis. The patient was found to have a white blood cell count of greater than 30 with left shift. Chest x-ray does not suggest a pulmonary source. Urinalysis suggests possible urinary tract infection. Pancultures are pending and he has been started on empiric IV vancomycin, Invanz, amikacin, and Flagyl. Infectious Disease now consulted to assist in management. PAST MEDICAL HISTORY: 1. 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 2. History of recurrent multi-drug resistant UTIs. 3. History of recurrent sepsis. 4. History of nonobstructive nephrolithiasis. 5. History of recurrent upper gastrointestinal bleeding due to erosive esophagitis. 6. Chronic ventilator-dependent respiratory failure. 7. Chronic encephalopathy. 8. Functional quadriplegia and bedbound. 9. Multi-drug resistant organism colonized including methicillin-resistant Staphylococcus aureus, vancomycin-resistant enterococcus, carbapenem-resistant organisms, and multi-drug resistant Acinetobacter. PAST SURGICAL HISTORY: 1. Tracheostomy. 2. PEG tube placement with multiple revisions. FAMILY HISTORY: Unknown. SOCIAL HISTORY: The patient is a long-term resident of a custodial. No active tobacco, alcohol, or illicit drug abuse. ALLERGIES: No known drug allergies. MEDICATIONS: 1. Vancomycin. 2. Invanz. 3. Amikacin. 4. Flagyl. 5. Please refer to [facility] for additional medications. REVIEW OF SYSTEMS: Unable to obtain. PHYSICAL EXAMINATION: VITAL SIGNS: Maximum temperature 99.8, blood pressure 115/56, heart rate in the 80s, respiratory rate 20, and saturating 100% on 35% FiO2. GENERAL: No apparent distress. Nonresponsive. HEENT: Tracheostomy tube in place. CARDIOVASCULAR: Regular rate and rhythm. No murmurs. PULMONARY: Coarse breath sounds bilaterally. ABDOMINAL: Bowel sounds present. Soft, nondistended, and nontender. PEG tube in place. EXTREMITIES: No edema. Contracted. LABORATORY DATA: White blood cell count of 37.7 with left shift, hemoglobin 10.1, and platelets 339,000. Sodium 132, potassium 3.3, chloride 102, bicarbonate 19, BUN 32, and creatinine 1.1. Lactic acid 3.3, decreased to 1.3. AST 58, ALT 57, alkaline phosphatase 179, and total bilirubin 0.3. Albumin 1.9. Urinalysis with pyuria and bacteriuria. MICROBIOLOGY: 1. 06/27/2017 blood culture pending. 2. 06/27/2017 urine culture pending. 3. 06/27/2017 sputum culture pending. IMAGIN. 06/27/2017 chest x-ray, no acute findings. 2. 06/27/2017 echocardiogram, ejection fraction of 60% with grade 1 diastolic dysfunction. ASSESSMENT: 1. Probable recurrent urinary tract infection. Urine culture is pending. 2. History of recurrent pneumonias, rule out recurrence. Initial chest x-ray has no acute findings. 3. Incontinence dermatitis. 4. History of rash and possible scabies, status post treatment. 5. Recurrent severe sepsis. 6. Lactic acidosis, resolved. 7. Leukocytosis, worsening and afebrile. 8. History of recurrent upper gastrointestinal bleeding and erosive esophagitis. 9. Chronic ventilator-dependent respiratory failure. 10. Chronic encephalopathy. 11. correction resident. 12. Functional quadriplegia and bedbound. 13. Recurrent hospital readmission. 14. Multi-drug resistant organism colonized. 15. No known drug allergies. 16. Full Code. PLAN: 1. Continue empiric IV vancomycin, amikacin, Invanz, and Flagyl day #1 pending cultures. 2. Follow up cultures. 3. Monitor CBC and temperatures. 4. Monitor BMP. 5. Monitor chest x-ray. 6. Ventilator support, tracheostomy care, and aspiration precautions. 7. Contact precautions. Thank you. We will follow. Abdiel Lamas M.D. DR: ADARSH JOB#: [id number] CC: Huma Keating M.D.; Fax#: [phone] Abdiel Lamas M.D. GLYNN BURGOS M.D; FAX#: [phone]
[2017-06-29] VITALS (24 sets, daily range): BP systolic 96–136; BP diastolic 50–83
--- NOTE | 2017-06-29 02:00 | Emergency Room Report ---
History of Present Illness General Chief Complaint: Abnormal Labs Source: Medical Record Present Illness Allergies: Coded Allergies: NO KNOWN DRUG ALLERGIES (Verified Allergy, Unknown, 09/11/16) Nursing Documentation-PMH Hx Cardiac Problems: Yes Hx Hypertension: Yes Hx Asthma: Yes Hx COPD: No Hx Diabetes: Yes Hx Cancer: No Hx Gastrointestinal Problems: Yes Hx Dialysis: Yes - pre renal azotemia, uti Hx Neurological Problems: Yes Hx Cerebrovascular Accident: Yes Hx Transient Ischemic Attacks: Yes Hx Dementia: Yes Hx Alzheimer's Disease: Yes Hx Parkinson's Disease: Yes Hx Encephalitis: Yes Hx Seizures: Yes Hx Epilepsy: Yes Hx Paralysis: Yes - HEMIPLEGIA Hx Concentration Difficulty: Yes Hx Speech Problem: Yes Hx Aphasia: Yes Hx Weakness: Yes Hx Fatigue: Yes Hx Neurologic Surgery: No Hx Brain Shunt: No Physical Exam Vital Signs Date Time Temp Pulse Resp B/P (MAP) Pulse Ox O2 Delivery O2 Flow Rate FiO2 06/27/17 22:54 99.9 102 20 75/51 99 Trach Collar 5.0 06/27/17 23:02 35 Procedures Central Line Central Line : Consent: Verbal Central Line Lumen: triple Maximal Sterile Barrier Tech: yes cap, yes mask, yes sterile gown, yes sterile gloves, yes large sterile sheet, yes hand hygiene, yes chlorhexidine prep Central Line Postion: femoral (R) Anesthesia: Lidocaine cc's of anesthesia: 5 Complications: none Central Line Post Position: sutured, good blood return Attempts: One Patient Tolerated: Well Complications: None Medical Decision Making Diagnostic Impression: Primary Impression: Sepsis Additional Impressions: Alzheimer's dementia Tracheostomy dependence ER Course Patient presents with sepsis and is hypotensive now. He needs IV access and also pressors. Nursing staff in the ICU asked me to place a central line. I place a triple-lumen in his right femoral without any difficulty. This was done under sterile condition. Good blood flow. Suture into place. Last Vital Signs Date Time Temp Pulse Resp B/P (MAP) Pulse Ox O2 Delivery O2 Flow Rate FiO2 06/29/17 01:17 84 18 35 06/29/17 00:00 98.0 104/55 100 Mechanical Ventilator 06/27/17 22:54 5.0 Disposition: ADMITTED INPATIENT Condition: Serious Referrals: MIKAYLA WILLOUGHBY (PCP) DEVON KELSEY M.D. Jun 29, 2017 01:59
[2017-06-29] MEDS: Ertapenem 1 GM in NS 55 ML IV SCH (02:42)
[2017-06-29] MEDS: Vancomycin 500mg/D5W 110ml IVPB SCH ×2 (04:06)
[2017-06-29 05:39] LABS: HEMATOCRIT 23.8 % (42.0-52.0); HEMOGLOBIN 7.5 G/DL (14.2-18.0); MEAN CORPUSCULAR VOLUME 87 FL (80-99); PLATELET COUNT 237 K/UL (150-450); RED BLOOD COUNT 2.73 M/UL (4.70-6.10); RED CELL DISTRIBUTION WIDTH 18.4 % (11.6-14.8); WHITE BLOOD COUNT 16.8 K/UL (4.8-10.8)
[2017-06-29 06:10] LABS: ALANINE AMINOTRANSFERASE 38 U/L (12-78); ALBUMIN 1.6 G/DL (3.4-5.0); ALBUMIN/GLOBULIN RATIO 0.4 (1.0-2.7); ALKALINE PHOSPHATASE 120 U/L (46-116); ANION GAP 11 mmol/L (5-15); ASPARTATE AMINO TRANSFERASE 26 U/L (15-37); BILIRUBIN,TOTAL 0.2 MG/DL (0.2-1.0); BLOOD UREA NITROGEN 21 mg/dL (7-18); CALCIUM 8.5 MG/DL (8.5-10.1); CARBON DIOXIDE 19 MMOL/L (21-32); CHLORIDE 115 MMOL/L (98-107); CREATININE 0.9 MG/DL (0.55-1.30); PHOSPHORUS 2.3 MG/DL (2.5-4.9); SODIUM 145 MMOL/L (136-145)
[2017-06-29] MEDS: Heparin 5000 units/ml inj SUBQ SCH ×2 (08:48→21:47)
[2017-06-29] MEDS: Pantoprazole Inj IVP SCH (08:48)
[2017-06-29] MEDS: Vancomycin oral 125mg/2.5ml ORAL SCH ×4 (08:49→21:44)
--- NOTE | 2017-06-29 10:19 | Pulmonolgy Critical Care Note ---
Critical Care - Asmt/Plan Problems: (1) Septic shock (2) Acute on chronic respiratory failure (3) Acute encephalopathy (4) Gastrostomy tube dependent (5) Severe protein-calorie malnutrition (6) Severe erosive esophagitis Respiratory: monitor respiratory rate, adjust FIO2, CXR Cardiac: start pressors, continue pressors Renal: F/U I&O, keep IV fluid Infectious Disease: check cultures Gastrointestinal: start feedings Endocrine: monitor blood sugar, check HgA1C Hematologic: monitor H/H Affect: PRN ativan Prophylaxis: Protonix Notes Reviewed: 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 with: nurses, consultants, dependency case managerreal estate manager - Objective Last 24 Hour Vital Signs Date Time Temp Pulse Resp B/P (MAP) Pulse Ox O2 Delivery O2 Flow Rate FiO2 06/29/17 09:09 77 16 35 06/29/17 09:00 80 16 114/68 100 Mechanical Ventilator 35 06/29/17 08:00 98.4 81 16 114/68 100 Mechanical Ventilator 35 06/29/17 08:00 81 06/29/17 08:00 35 06/29/17 07:00 80 17 109/68 100 Mechanical Ventilator 35 06/29/17 06:56 84 17 35 06/29/17 06:00 84 17 115/60 100 Mechanical Ventilator 35 06/29/17 05:10 91 21 35 06/29/17 05:00 88 17 116/67 100 Mechanical Ventilator 35 06/29/17 04:00 77 06/29/17 04:00 35 06/29/17 04:00 98.2 78 16 98/50 100 Mechanical Ventilator 35 06/29/17 03:07 74 16 35 06/29/17 03:00 75 16 110/56 100 Mechanical Ventilator 35 06/29/17 02:00 76 16 104/57 100 Mechanical Ventilator 35 06/29/17 01:30 104/57 06/29/17 01:17 84 18 35 06/29/17 01:00 70 16 104/64 100 Mechanical Ventilator 35 06/29/17 00:00 98.0 68 16 104/55 100 Mechanical Ventilator 35 06/29/17 00:00 73 06/29/17 00:00 35 06/28/17 23:14 74 16 35 06/28/17 23:00 76 16 90/53 100 Mechanical Ventilator 35 06/28/17 22:00 78 16 88/53 100 Mechanical Ventilator 35 06/28/17 21:18 82 16 35 06/28/17 21:00 80 16 85/45 100 Mechanical Ventilator 35 06/28/17 20:00 98.8 78 16 86/44 100 Mechanical Ventilator 35 06/28/17 19:16 78 16 35 06/28/17 18:00 98.5 89 22 115/56 100 Mechanical Ventilator 35 06/28/17 17:54 99.1 06/28/17 17:14 97 17 35 06/28/17 17:00 99.1 87 20 106/102 100 Mechanical Ventilator 35 06/28/17 16:00 92 06/28/17 16:00 35 06/28/17 16:00 99.5 98 22 106/60 98 Mechanical Ventilator 35 06/28/17 15:14 97 18 35 06/28/17 15:00 95 18 99/53 100 Mechanical Ventilator 35 06/28/17 14:00 94 16 115/45 100 Mechanical Ventilator 35 06/28/17 13:15 97 17 35 06/28/17 13:00 95 16 103/55 100 Mechanical Ventilator 35 06/28/17 12:00 99.1 89 16 91/36 100 Mechanical Ventilator 35 06/28/17 12:00 102 06/28/17 12:00 35 06/28/17 11:20 100 22 35 06/28/17 11:00 98 18 95/58 100 Mechanical Ventilator 35 Status: sedated Condition: critical HEENT: atraumatic Neck: full ROM Heart: HR/BP stable, HR/BP unstable Abdomen: soft, non-tender, feeding tube Extremities: no C/C/E Decubiti: location, stage Micro: Microbiology Date/Time Source Procedure Growth Status 06/27/17 23:20 Blood Blood Culture - Preliminary NO GROWTH AFTER 24 HOURS Resulted 06/27/17 23:16 Blood Blood Culture - Preliminary NO GROWTH AFTER 24 HOURS Resulted 06/28/17 05:25 Sputum Gram Stain Pending Resulted 06/28/17 05:25 Sputum Sputum Culture - Preliminary Resulted 06/27/17 23:30 Urine,Clean Catch Urine Culture - Preliminary Gram Negative Bacillus 1 Resulted Critical Care - Subjective ROS Limited/Unobtainable: Yes ICU Day: 3 Intubation Day: 3 Condition: critical EKG Rhythm: Sinus Bradycardia FI02: 35 Vent Support Breath Rate: 16 Vent Support Mode: AC Vent Tidal Volume: 600 Sputum Amount: Moderate PIP: 20 Fluids: NS 150 cc/hour I&O: Intake and Output 06/29/17 06/30/17 19:00 07:00 Output Total 130 ml Balance -130 ml Output Urine Total 130 ml CXR: no change Labs: Laboratory Tests Test 06/28/17 15:00 06/29/17 05:00 06/29/17 06:56 Lactic Acid Level 1.30 mmol/L (0.66-2.22) Random Amikacin Level 8.8 ug/mL White Blood Count 16.8 K/UL (4.8-10.8) #H Red Blood Count 2.73 M/UL (4.70-6.10) L Hemoglobin 7.5 G/DL (14.2-18.0) L Hematocrit 23.8 % (42.0-52.0) L Mean Corpuscular Volume 87 FL (80-99) Mean Corpuscular Hemoglobin 27.6 PG (27.0-31.0) Mean Corpuscular Hemoglobin Concent 31.6 G/DL (32.0-36.0) L Red Cell Distribution Width 18.4 % (11.6-14.8) H Platelet Count 237 K/UL (150-450) Mean Platelet Volume 8.8 FL (6.5-10.1) Neutrophils (%) (Auto) % (45.0-75.0) Lymphocytes (%) (Auto) % (20.0-45.0) Monocytes (%) (Auto) % (1.0-10.0) Eosinophils (%) (Auto) % (0.0-3.0) Basophils (%) (Auto) % (0.0-2.0) Differential Total Cells Counted 100 Neutrophils % (Manual) 77 % (45-75) H Lymphocytes % (Manual) 6 % (20-45) L Monocytes % (Manual) 5 % (1-10) Eosinophils % (Manual) 0 % (0-3) Basophils % (Manual) 0 % (0-2) Band Neutrophils 12 % (0-8) H Platelet Estimate Adequate Platelet Morphology Normal Hypochromasia 1+ Anisocytosis 1+ Sodium Level 145 MMOL/L (136-145) Potassium Level 3.0 MMOL/L (3.5-5.1) L Chloride Level 115 MMOL/L (98-107) H Carbon Dioxide Level 19 MMOL/L (21-32) L Anion Gap 11 mmol/L (5-15) Blood Urea Nitrogen 21 mg/dL (7-18) H Creatinine 0.9 MG/DL (0.55-1.30) Estimat Glomerular Filtration Rate > 60 mL/min (>60) Glucose Level 97 MG/DL (74-106) Calcium Level 8.5 MG/DL (8.5-10.1) Phosphorus Level 2.3 MG/DL (2.5-4.9) L Magnesium Level 2.0 MG/DL (1.8-2.4) Total Bilirubin 0.2 MG/DL (0.2-1.0) Aspartate Amino Transf (AST/SGOT) 26 U/L (15-37) Alanine Aminotransferase (ALT/SGPT) 38 U/L (12-78) Alkaline Phosphatase 120 U/L (46-116) H Total Protein 5.3 G/DL (6.4-8.2) L Albumin 1.6 G/DL (3.4-5.0) L Globulin 3.7 g/dL Albumin/Globulin Ratio 0.4 (1.0-2.7) L Arterial Blood pH 7.394 (7.350-7.450) Arterial Blood Partial Pressure CO2 30.9 mmHg (35.0-45.0) L Arterial Blood Partial Pressure O2 460.9 mmHg (75.0-100.0) H Arterial Blood HCO3 18.5 mmol/L (22.0-26.0) L Arterial Blood Oxygen Saturation 99.7 % (92.0-98.0) H Arterial Blood Base Excess -5.7 Ger Test Positive MIKAYLA WILLOUGHBY Jun 29, 2017 10:19
--- NOTE | 2017-06-29 10:23 | General Progress Note ---
Progress Note Progress Note Pt need blood transfusion and PICC line placement. He can't sign any consent. No family available to sing. Pt needs these procedures to save his life. MIKAYLA WILLOUGHBY Jun 29, 2017 10:23
[2017-06-29] MEDS ORDERED: KCl 10% 40mEq/30ml liquid NG ONE (11:00)
--- NOTE | 2017-06-29 12:43 | Diagnostic Imaging Report ---
Indication: DYSPNEA Technique: One view of the chest Comparison: 06/27/2017 Findings: There is a tracheostomy in place. The lungs and pleural spaces are clear. Heart size is normal. No significant change Impression: No acute process
--- NOTE | 2017-06-29 14:25 | Infectious Diseases Prog Note ---
Assessment/Plan Assessment/Plan ASSESSMENT: #Probable recurrent urinary tract infection - UCx pending #h/o recurrent MDRO HCAP / VAPs r/o recurrence - SCx pending - CXR 06/27: No acute disease #Incontinence dermatitis #h/o Rash-possible scabies SP Rx #Recurrent severe sepsis #Lactic acidosis - resolved #Leukocytosis - improving # Blood Cx :GPC and GNR # History of recurrent upper gastrointestinal bleeding and erosive esophagitis # Chronic ventilator-dependent respiratory failure, status post percutaneous endoscopic gastrostomy tube placement with multiple revisions and replacements. # Chronic encephalopathy/dementia. #. prison resident. #. Functional quadriplegia/bedbound. # Frequent hospital readmissions. # Multidrug-resistant organism colonized including MRSA, VRE, KPC, MDR-ACB # No known drug allergies. #. Full Code. PLAN: - Continue empiric IV vancomycin, amikacin, invanz, flagyl d# 2 pending cultures - f/u cultures - Monitor CBC and temperatures. - Monitor BMP. - Monitor chest x-ray. - Ventilator support, tracheostomy care, and aspiration precautions. - Contact precautions Subjective Constitutional: Denies: no symptoms, fever, chills, fatigue, anorexia, drenching sweats, other Allergies: Coded Allergies: NO KNOWN DRUG ALLERGIES (Verified Allergy, Unknown, 09/11/16) Objective Vital Signs Last 24 Hour Vital Signs Date Time Temp Pulse Resp B/P (MAP) Pulse Ox O2 Delivery O2 Flow Rate FiO2 06/29/17 12:55 77 17 35 06/29/17 12:00 98.2 82 16 127/74 100 Mechanical Ventilator 35 06/29/17 12:00 81 06/29/17 12:00 35 06/29/17 11:11 81 19 35 06/29/17 11:00 82 17 110/53 100 Mechanical Ventilator 35 06/29/17 10:00 79 17 126/69 100 Mechanical Ventilator 35 06/29/17 09:09 77 16 35 06/29/17 09:00 80 16 114/68 100 Mechanical Ventilator 35 06/29/17 08:00 98.4 81 16 114/68 100 Mechanical Ventilator 35 06/29/17 08:00 81 06/29/17 08:00 35 06/29/17 07:00 80 17 109/68 100 Mechanical Ventilator 35 06/29/17 06:56 84 17 35 06/29/17 06:00 84 17 115/60 100 Mechanical Ventilator 35 06/29/17 05:10 91 21 35 06/29/17 05:00 88 17 116/67 100 Mechanical Ventilator 35 06/29/17 04:00 77 06/29/17 04:00 35 06/29/17 04:00 98.2 78 16 98/50 100 Mechanical Ventilator 35 06/29/17 03:07 74 16 35 06/29/17 03:00 75 16 110/56 100 Mechanical Ventilator 35 06/29/17 02:00 76 16 104/57 100 Mechanical Ventilator 35 06/29/17 01:30 104/57 06/29/17 01:17 84 18 35 06/29/17 01:00 70 16 104/64 100 Mechanical Ventilator 35 06/29/17 00:00 98.0 68 16 104/55 100 Mechanical Ventilator 35 06/29/17 00:00 73 06/29/17 00:00 35 06/28/17 23:14 74 16 35 06/28/17 23:00 76 16 90/53 100 Mechanical Ventilator 35 06/28/17 22:00 78 16 88/53 100 Mechanical Ventilator 35 06/28/17 21:18 82 16 35 06/28/17 21:00 80 16 85/45 100 Mechanical Ventilator 35 06/28/17 20:00 98.8 78 16 86/44 100 Mechanical Ventilator 35 06/28/17 19:16 78 16 35 06/28/17 18:00 98.5 89 22 115/56 100 Mechanical Ventilator 35 06/28/17 17:54 99.1 06/28/17 17:14 97 17 35 06/28/17 17:00 99.1 87 20 106/102 100 Mechanical Ventilator 35 06/28/17 16:00 92 06/28/17 16:00 35 06/28/17 16:00 99.5 98 22 106/60 98 Mechanical Ventilator 35 06/28/17 15:14 97 18 35 06/28/17 15:00 95 18 99/53 100 Mechanical Ventilator 35 Height (Feet): 6 Height (Inches): 1.00 Weight (Pounds): 136 HEENT: mucous membranes moist Respiratory/Chest: no respiratory distress Cardiovascular: regular rhythm Abdomen: soft, non tender Microbiology Date/Time Source Procedure Growth Status 06/27/17 23:20 Blood Blood Culture - Preliminary Resulted 06/27/17 23:16 Blood Blood Culture - Preliminary Resulted 06/28/17 05:25 Sputum Gram Stain - Final Resulted 06/28/17 05:25 Sputum Sputum Culture - Preliminary Resulted 06/27/17 23:30 Urine,Clean Catch Urine Culture - Preliminary Gram Negative Bacillus 1 Resulted Laboratory Tests Test 06/28/17 15:00 06/29/17 05:00 06/29/17 06:56 Lactic Acid Level 1.30 mmol/L (0.66-2.22) Random Amikacin Level 8.8 ug/mL White Blood Count 16.8 K/UL (4.8-10.8) #H Red Blood Count 2.73 M/UL (4.70-6.10) L Hemoglobin 7.5 G/DL (14.2-18.0) L Hematocrit 23.8 % (42.0-52.0) L Mean Corpuscular Volume 87 FL (80-99) Mean Corpuscular Hemoglobin 27.6 PG (27.0-31.0) Mean Corpuscular Hemoglobin Concent 31.6 G/DL (32.0-36.0) L Red Cell Distribution Width 18.4 % (11.6-14.8) H Platelet Count 237 K/UL (150-450) Mean Platelet Volume 8.8 FL (6.5-10.1) Neutrophils (%) (Auto) % (45.0-75.0) Lymphocytes (%) (Auto) % (20.0-45.0) Monocytes (%) (Auto) % (1.0-10.0) Eosinophils (%) (Auto) % (0.0-3.0) Basophils (%) (Auto) % (0.0-2.0) Differential Total Cells Counted 100 Neutrophils % (Manual) 77 % (45-75) H Lymphocytes % (Manual) 6 % (20-45) L Monocytes % (Manual) 5 % (1-10) Eosinophils % (Manual) 0 % (0-3) Basophils % (Manual) 0 % (0-2) Band Neutrophils 12 % (0-8) H Platelet Estimate Adequate Platelet Morphology Normal Hypochromasia 1+ Anisocytosis 1+ Sodium Level 145 MMOL/L (136-145) Potassium Level 3.0 MMOL/L (3.5-5.1) L Chloride Level 115 MMOL/L (98-107) H Carbon Dioxide Level 19 MMOL/L (21-32) L Anion Gap 11 mmol/L (5-15) Blood Urea Nitrogen 21 mg/dL (7-18) H Creatinine 0.9 MG/DL (0.55-1.30) Estimat Glomerular Filtration Rate > 60 mL/min (>60) Glucose Level 97 MG/DL (74-106) Calcium Level 8.5 MG/DL (8.5-10.1) Phosphorus Level 2.3 MG/DL (2.5-4.9) L Magnesium Level 2.0 MG/DL (1.8-2.4) Total Bilirubin 0.2 MG/DL (0.2-1.0) Aspartate Amino Transf (AST/SGOT) 26 U/L (15-37) Alanine Aminotransferase (ALT/SGPT) 38 U/L (12-78) Alkaline Phosphatase 120 U/L (46-116) H Total Protein 5.3 G/DL (6.4-8.2) L Albumin 1.6 G/DL (3.4-5.0) L Globulin 3.7 g/dL Albumin/Globulin Ratio 0.4 (1.0-2.7) L Arterial Blood pH 7.394 (7.350-7.450) Arterial Blood Partial Pressure CO2 30.9 mmHg (35.0-45.0) L Arterial Blood Partial Pressure O2 460.9 mmHg (75.0-100.0) H Arterial Blood HCO3 18.5 mmol/L (22.0-26.0) L Arterial Blood Oxygen Saturation 99.7 % (92.0-98.0) H Arterial Blood Base Excess -5.7 Ger Test Positive Current Medications Medications (Trade) Dose Ordered Sig/Wanda Route PRN Reason Start Time Stop Time Status Last Admin Dose Admin Acetaminophen (Tylenol) 650 mg Q4H PRN ORAL fever 06/27/17 23:30 07/27/17 23:29 06/28/17 16:55 Albuterol/ Ipratropium (DuoNeb 0.5-3(2.5)mg/3ml) 3 ml Q4H PRN HHN Shortness of Breath 06/27/17 23:30 07/02/17 23:29 Amikacin Protocol (Amikacin pharmacy to dose) 1 ea DAILY PRN MISC PER RX PROTOCOL 06/28/17 11:30 07/28/17 11:29 Amikacin Sulfate 900 mg/Sodium Chloride 113.6 ml @ 113.6 mls/ hr Q36H IV 06/28/17 03:00 07/05/17 02:59 06/28/17 03:02 Chlorhexidine Gluconate (Jasmin-Hex 2%) 1 applic DAILY@2000 TOPIC 06/28/17 20:00 07/28/17 19:59 Ertapenem 1 gm/ Sodium Chloride 55 ml @ 110 mls/hr Q24H IV 06/28/17 02:00 07/03/17 01:59 06/29/17 02:42 Heparin Sodium (Porcine) (Heparin 5000 units/ml) 5,000 units EVERY 12 HOURS SUBQ 06/28/17 09:00 07/28/17 08:59 06/29/17 08:48 Heparin Sodium/ Sodium Chloride (Heparin 2000 units/Ns 1000ml premix) 2,000 unit ONCE PRN INJ PICC PLACEMENT 06/28/17 11:00 06/29/17 23:59 Lidocaine HCl (Xylocaine 1% 30ml) 30 ml ONCE PRN INJ PICC PLACEMENT 06/28/17 11:00 06/29/17 23:59 Lorazepam (Ativan 2mg/ml 1ml) 2 mg Q2H PRN IV For Anxiety 06/27/17 23:30 07/04/17 23:29 06/29/17 05:03 Metronidazole 100 ml @ 100 mls/hr Q6HR IVPB 06/28/17 12:00 07/05/17 11:59 06/29/17 14:03 Morphine Sulfate (Morphine Sulfate) 4 mg Q4H PRN IVP Severe Pain (Pain Scale 7-10) 06/27/17 23:30 07/04/17 23:29 Norepinephrine Bitartrate 4 mg/ Dextrose 254 ml @ 0 mls/hr Q24H IV 06/28/17 01:30 07/28/17 01:29 Ondansetron HCl (Zofran) 4 mg Q6H PRN IVP Nausea & Vomiting 06/27/17 23:30 07/27/17 23:29 Pantoprazole (Protonix) 40 mg DAILY IVP 06/28/17 09:00 07/28/17 08:59 06/29/17 08:48 Polyethylene Glycol (Miralax) 17 gm DAILYPRN PRN ORAL Constipation 06/27/17 23:30 07/27/17 23:29 Sodium Chloride 1,000 ml @ 150 mls/hr Q6H40M IVLG 06/28/17 11:00 07/28/17 10:59 06/29/17 13:19 Vancomycin HCl (Vanco rx to dose) 1 ea DAILY PRN MISC PER RX PROTOCOL 06/28/17 11:30 07/28/17 11:29 Vancomycin HCl (Vancomycin) 125 mg FOUR TIMES A DAY ORAL 06/28/17 13:00 07/05/17 12:59 06/29/17 13:19 Vancomycin HCl 500 mg/Dextrose 110 ml @ 110 mls/hr Q12H IVPB 06/28/17 16:00 07/03/17 15:59 06/29/17 04:06 GLYNN BURGOS M.D. Jun 29, 2017 14:25
[2017-06-29] MEDS: Amikacin 900 MG in NS 110 ML IV SCH (17:45)
[2017-06-29] MEDS: Vancomycin 750mg/NS 250ml IVPB SCH (18:58)
[2017-06-29] MEDS: Dyna-Hex 2% Top Sol 2oz TOPIC SCH (21:43)
[2017-06-30] VITALS (23 sets, daily range): BP systolic 111–153; BP diastolic 62–115
[2017-06-30] MEDS: Ertapenem 1 GM in NS 55 ML IV SCH (01:53)
[2017-06-30] MEDS: Vancomycin 750mg/NS 250ml IVPB SCH (05:29)
[2017-06-30 05:37] LABS: BASOPHILS % (AUTO) 0.8 % (0.0-2.0); EOSINOPHILS % (AUTO) 2.7 % (0.0-3.0); HEMATOCRIT 32.2 % (42.0-52.0); HEMOGLOBIN 10.2 G/DL (14.2-18.0); LYMPHOCYTES % (AUTO) 14.3 % (20.0-45.0); MEAN CORPUSCULAR VOLUME 88 FL (80-99); MONOCYTES % (AUTO) 10.3 % (1.0-10.0); PLATELET COUNT 231 K/UL (150-450); RED BLOOD COUNT 3.65 M/UL (4.70-6.10); RED CELL DISTRIBUTION WIDTH 17.2 % (11.6-14.8); WHITE BLOOD COUNT 9.6 K/UL (4.8-10.8)
[2017-06-30 06:39] LABS: ALANINE AMINOTRANSFERASE 30 U/L (12-78); ALBUMIN 1.7 G/DL (3.4-5.0); ALBUMIN/GLOBULIN RATIO 0.4 (1.0-2.7); ALKALINE PHOSPHATASE 127 U/L (46-116); ANION GAP 11 mmol/L (5-15); ASPARTATE AMINO TRANSFERASE 24 U/L (15-37); BILIRUBIN,TOTAL 0.3 MG/DL (0.2-1.0); BLOOD UREA NITROGEN 15 mg/dL (7-18); CALCIUM 8.3 MG/DL (8.5-10.1); CARBON DIOXIDE 19 MMOL/L (21-32); CHLORIDE 115 MMOL/L (98-107); POTASSIUM 2.9 MMOL/L (3.5-5.1); SODIUM 144 MMOL/L (136-145)
[2017-06-30] MEDS: Heparin 5000 units/ml inj SUBQ SCH ×2 (09:00→21:51)
[2017-06-30] MEDS: Pantoprazole Inj IVP SCH (09:03)
[2017-06-30] MEDS: Vancomycin oral 125mg/2.5ml ORAL SCH (09:03)
--- NOTE | 2017-06-30 10:47 | Infectious Diseases Prog Note ---
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 Dementia Anemia P: Continue Ertapenem, Amikacin & Flagyl May discontinue Vancomycin Will f/u cultures Subjective ROS Limited/Unobtainable: Yes Allergies: Coded Allergies: NO KNOWN DRUG ALLERGIES (Verified Allergy, Unknown, 09/11/16) Objective Vital Signs Last 24 Hour Vital Signs Date Time Temp Pulse Resp B/P (MAP) Pulse Ox O2 Delivery O2 Flow Rate FiO2 06/30/17 09:25 62 17 35 06/30/17 09:00 62 11 141/103 100 Mechanical Ventilator 35 06/30/17 08:00 98.4 60 14 141/81 100 Mechanical Ventilator 35 06/30/17 08:00 35 06/30/17 07:23 60 16 35 06/30/17 07:00 66 12 137/86 100 Mechanical Ventilator 35 06/30/17 06:00 66 20 138/70 100 Mechanical Ventilator 35 06/30/17 05:10 73 16 35 06/30/17 05:00 98.0 20 137/79 100 Mechanical Ventilator 35 06/30/17 04:00 35 06/30/17 04:00 68 06/30/17 04:00 98.0 70 18 135/70 100 Mechanical Ventilator 35 06/30/17 03:00 68 18 140/72 100 Mechanical Ventilator 35 06/30/17 02:41 56 16 35 06/30/17 02:00 70 18 111/62 100 Mechanical Ventilator 35 06/30/17 01:30 125/78 06/30/17 01:00 70 18 111/62 100 Mechanical Ventilator 35 06/30/17 00:00 70 18 111/62 100 Mechanical Ventilator 35 06/29/17 23:00 70 18 111/62 100 Mechanical Ventilator 35 06/29/17 22:29 76 16 35 06/29/17 22:00 74 16 129/69 100 Mechanical Ventilator 35 06/29/17 21:08 75 16 35 06/29/17 21:00 74 20 122/50 100 Mechanical Ventilator 35 06/29/17 20:00 35 06/29/17 20:00 98.8 75 16 113/59 100 Mechanical Ventilator 35 06/29/17 20:00 74 06/29/17 19:19 74 16 35 06/29/17 19:00 76 16 117/69 100 Mechanical Ventilator 35 06/29/17 18:00 75 16 101/58 100 Mechanical Ventilator 35 06/29/17 17:00 77 16 136/83 100 Mechanical Ventilator 35 06/29/17 16:49 94 20 35 06/29/17 16:00 98.3 80 17 134/79 100 Mechanical Ventilator 35 06/29/17 16:00 78 06/29/17 16:00 35 06/29/17 15:00 80 15 96/81 100 Mechanical Ventilator 35 06/29/17 14:58 87 18 35 06/29/17 14:00 80 16 131/82 100 Mechanical Ventilator 35 06/29/17 13:00 80 16 131/82 100 Mechanical Ventilator 35 06/29/17 12:55 77 17 35 06/29/17 12:00 98.2 82 16 127/74 100 Mechanical Ventilator 35 06/29/17 12:00 81 06/29/17 12:00 35 06/29/17 11:11 81 19 35 06/29/17 11:00 82 17 110/53 100 Mechanical Ventilator 35 Height (Feet): 6 Height (Inches): 1.00 Weight (Pounds): 136 General Appearance: no acute distress HEENT: status post trach Respiratory/Chest: lungs clear, other - on ventilator Cardiovascular: normal rate Abdomen: soft, non tender, other - Gt feeding Extremities: no edema, other - right femoral line Neurologic/Psychiatric: other - opens eyes Microbiology Date/Time Source Procedure Growth Status 06/27/17 23:20 Blood Blood Culture - Preliminary Gram Negative Alex Resulted 06/27/17 23:16 Blood Blood Culture - Preliminary Staphylococcus Sp Coag Neg Resulted 06/28/17 05:25 Sputum Gram Stain - Final Resulted 06/28/17 05:25 Sputum Culture - Preliminary Gram Negative Bacillus 1 Gram Negative Bacillus 2 Gram Negative Bacillus 2#2 Resulted 06/27/17 23:16 Nasal Nares MRSA Culture - Final Staphylococcus Aureus - Mrsa Complete 06/27/17 23:30 Urine,Clean Catch Urine Culture - Preliminary Gram Negative Bacillus 1 Resulted 06/27/17 23:16 Rectum VRE Culture - Final Enterococcus Faecalis - Vre Complete Laboratory Tests Test 06/29/17 16:00 06/30/17 04:00 Vancomycin Level Trough 9.6 ug/mL (5.0-12.0) White Blood Count 9.6 K/UL (4.8-10.8) Red Blood Count 3.65 M/UL (4.70-6.10) L Hemoglobin 10.2 G/DL (14.2-18.0) #L Hematocrit 32.2 % (42.0-52.0) #L Mean Corpuscular Volume 88 FL (80-99) Mean Corpuscular Hemoglobin 27.9 PG (27.0-31.0) Mean Corpuscular Hemoglobin Concent 31.7 G/DL (32.0-36.0) L Red Cell Distribution Width 17.2 % (11.6-14.8) H Platelet Count 231 K/UL (150-450) Mean Platelet Volume 9.0 FL (6.5-10.1) Neutrophils (%) (Auto) 72.0 % (45.0-75.0) Lymphocytes (%) (Auto) 14.3 % (20.0-45.0) L Monocytes (%) (Auto) 10.3 % (1.0-10.0) H Eosinophils (%) (Auto) 2.7 % (0.0-3.0) Basophils (%) (Auto) 0.8 % (0.0-2.0) Sodium Level 144 MMOL/L (136-145) Potassium Level 2.9 MMOL/L (3.5-5.1) L Chloride Level 115 MMOL/L (98-107) H Carbon Dioxide Level 19 MMOL/L (21-32) L Anion Gap 11 mmol/L (5-15) Blood Urea Nitrogen 15 mg/dL (7-18) Creatinine 1.0 MG/DL (0.55-1.30) Estimat Glomerular Filtration Rate > 60 mL/min (>60) Glucose Level 84 MG/DL (74-106) Calcium Level 8.3 MG/DL (8.5-10.1) L Total Bilirubin 0.3 MG/DL (0.2-1.0) Aspartate Amino Transf (AST/SGOT) 24 U/L (15-37) Alanine Aminotransferase (ALT/SGPT) 30 U/L (12-78) Alkaline Phosphatase 127 U/L (46-116) H Pro-B-Type Natriuretic Peptide 4663 pg/mL (0-125) H Total Protein 5.6 G/DL (6.4-8.2) L Albumin 1.7 G/DL (3.4-5.0) L Globulin 3.9 g/dL Albumin/Globulin Ratio 0.4 (1.0-2.7) L Current Medications Medications (Trade) Dose Ordered Sig/Wanda Route PRN Reason Start Time Stop Time Status Last Admin Dose Admin Acetaminophen (Tylenol) 650 mg Q4H PRN ORAL fever 06/27/17 23:30 07/27/17 23:29 06/28/17 16:55 Albuterol/ Ipratropium (DuoNeb 0.5-3(2.5)mg/3ml) 3 ml Q4H PRN HHN Shortness of Breath 06/27/17 23:30 07/02/17 23:29 Amikacin Protocol (Amikacin pharmacy to dose) 1 ea DAILY PRN MISC PER RX PROTOCOL 06/28/17 11:30 07/28/17 11:29 Amikacin Sulfate 900 mg/Sodium Chloride 113.6 ml @ 113.6 mls/ hr Q36H IV 06/28/17 03:00 07/05/17 02:59 06/29/17 17:45 Chlorhexidine Gluconate (Jasmin-Hex 2%) 1 applic DAILY@2000 TOPIC 06/28/17 20:00 07/28/17 19:59 06/29/17 21:43 Ertapenem 1 gm/ Sodium Chloride 55 ml @ 110 mls/hr Q24H IV 06/28/17 02:00 07/03/17 01:59 06/30/17 01:53 Heparin Sodium (Porcine) (Heparin 5000 units/ml) 5,000 units EVERY 12 HOURS SUBQ 06/28/17 09:00 07/28/17 08:59 06/29/17 21:47 Lorazepam (Ativan 2mg/ml 1ml) 2 mg Q2H PRN IV For Anxiety 06/27/17 23:30 07/04/17 23:29 06/29/17 05:03 Metronidazole 100 ml @ 100 mls/hr Q6HR IVPB 06/28/17 12:00 07/05/17 11:59 06/30/17 06:21 Morphine Sulfate (Morphine Sulfate) 4 mg Q4H PRN IVP Severe Pain (Pain Scale 7-10) 06/27/17 23:30 07/04/17 23:29 Norepinephrine Bitartrate 4 mg/ Dextrose 254 ml @ 0 mls/hr Q24H IV 06/28/17 01:30 07/28/17 01:29 Ondansetron HCl (Zofran) 4 mg Q6H PRN IVP Nausea & Vomiting 06/27/17 23:30 07/27/17 23:29 Pantoprazole (Protonix) 40 mg DAILY IVP 06/28/17 09:00 07/28/17 08:59 06/30/17 09:03 Polyethylene Glycol (Miralax) 17 gm DAILYPRN PRN ORAL Constipation 06/27/17 23:30 07/27/17 23:29 Sodium Chloride 1,000 ml @ 150 mls/hr Q6H40M IVLG 06/28/17 11:00 07/28/17 10:59 06/30/17 09:08 Vancomycin HCl (Vanco rx to dose) 1 ea DAILY PRN MISC PER RX PROTOCOL 06/28/17 11:30 07/28/17 11:29 Vancomycin HCl (Vancomycin) 125 mg FOUR TIMES A DAY ORAL 06/28/17 13:00 07/05/17 12:59 06/30/17 09:03 Vancomycin/Sodium Chloride 250 ml @ 166.667 mls/hr Q12HR@0600,1800 IVPB 06/29/17 18:00 07/04/17 17:59 06/30/17 05:29 SHANNA BERRY Jun 30, 2017 10:47
--- NOTE | 2017-06-30 11:35 | Diagnostic Imaging Report ---
Indication: Dyspnea Comparison: 06/29/17 A single view chest radiograph was obtained. Findings: Interstitial opacities again noted. Stable. Tracheostomy and stable heart size again demonstrated. Impression: No change management lead the last day
--- NOTE | 2017-06-30 11:35 | Diagnostic Imaging Report ---
Indication: Dyspnea Comparison: 06/29/17 A single view chest radiograph was obtained. Findings: Interstitial opacities again noted. Stable. Tracheostomy and stable heart size again demonstrated. 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
--- NOTE | 2017-06-30 11:35 | Diagnostic Imaging Report ---
Indication: Dyspnea Comparison: 06/29/17 A single view chest radiograph was obtained. Findings: Interstitial opacities again noted. Stable. Tracheostomy and stable heart size again demonstrated. Impression: No loom changer the last day
--- NOTE | 2017-06-30 12:16 | Pulmonolgy Critical Care Note ---
Critical Care - Asmt/Plan Problems: (1) Septic shock (2) Acute on chronic respiratory failure (3) Acute encephalopathy (4) Gastrostomy tube dependent (5) Severe protein-calorie malnutrition (6) Severe erosive esophagitis Respiratory: monitor respiratory rate Cardiac: continue to monitor HR/BP Renal: F/U I&O, keep IV fluid Infectious Disease: check cultures, continue antibiotics Endocrine: monitor blood sugar, check TSH, continue sliding scale insulin Hematologic: monitor H/H, transfuse if hgb<8.5 Neurologic: PRN Morphine, keep patient comfortable Disposition: keep in ICU Notes Reviewed: mold injector, 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 with: nurses, consultants, 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 - Objective Last 24 Hour Vital Signs Date Time Temp Pulse Resp B/P (MAP) Pulse Ox O2 Delivery O2 Flow Rate FiO2 06/30/17 11:17 60 16 30 06/30/17 11:00 58 14 147/71 100 Mechanical Ventilator 35 06/30/17 10:00 60 15 138/115 100 Mechanical Ventilator 35 06/30/17 09:25 62 17 35 06/30/17 09:00 62 11 141/103 100 Mechanical Ventilator 35 06/30/17 08:00 98.4 60 14 141/81 100 Mechanical Ventilator 35 06/30/17 08:00 63 06/30/17 08:00 35 06/30/17 07:23 60 16 35 06/30/17 07:00 66 12 137/86 100 Mechanical Ventilator 35 06/30/17 06:00 66 20 138/70 100 Mechanical Ventilator 35 06/30/17 05:10 73 16 35 06/30/17 05:00 98.0 20 137/79 100 Mechanical Ventilator 35 06/30/17 04:00 35 06/30/17 04:00 68 06/30/17 04:00 98.0 70 18 135/70 100 Mechanical Ventilator 35 06/30/17 03:00 68 18 140/72 100 Mechanical Ventilator 35 06/30/17 02:41 56 16 35 06/30/17 02:00 70 18 111/62 100 Mechanical Ventilator 35 06/30/17 01:30 125/78 06/30/17 01:00 70 18 111/62 100 Mechanical Ventilator 35 06/30/17 00:00 70 18 111/62 100 Mechanical Ventilator 35 06/29/17 23:00 70 18 111/62 100 Mechanical Ventilator 35 06/29/17 22:29 76 16 35 06/29/17 22:00 74 16 129/69 100 Mechanical Ventilator 35 06/29/17 21:08 75 16 35 06/29/17 21:00 74 20 122/50 100 Mechanical Ventilator 35 06/29/17 20:00 35 06/29/17 20:00 98.8 75 16 113/59 100 Mechanical Ventilator 35 06/29/17 20:00 74 06/29/17 19:19 74 16 35 06/29/17 19:00 76 16 117/69 100 Mechanical Ventilator 35 06/29/17 18:00 75 16 101/58 100 Mechanical Ventilator 35 06/29/17 17:00 77 16 136/83 100 Mechanical Ventilator 35 06/29/17 16:49 94 20 35 06/29/17 16:00 98.3 80 17 134/79 100 Mechanical Ventilator 35 06/29/17 16:00 78 06/29/17 16:00 35 06/29/17 15:00 80 15 96/81 100 Mechanical Ventilator 35 06/29/17 14:58 87 18 35 06/29/17 14:00 80 16 131/82 100 Mechanical Ventilator 35 06/29/17 13:00 80 16 131/82 100 Mechanical Ventilator 35 06/29/17 12:55 77 17 35 Status: awake, sedated HEENT: atraumatic Neck: full ROM Lungs: clear Heart: HR/BP stable Abdomen: soft, active bowel sounds Extremities: no C/C/E, edema Micro: Microbiology Date/Time Source Procedure Growth Status 06/27/17 23:20 Blood Blood Culture - Preliminary Gram Negative Alex Resulted 06/27/17 23:16 Blood Blood Culture - Preliminary Staphylococcus Sp Coag Neg Resulted 06/28/17 05:25 Sputum Gram Stain - Final Resulted 06/28/17 05:25 Sputum Culture - Preliminary Gram Negative Bacillus 1 Gram Negative Bacillus 2 Gram Negative Bacillus 2#2 Resulted 06/27/17 23:16 Nasal Nares MRSA Culture - Final Staphylococcus Aureus - Mrsa Complete 06/27/17 23:30 Urine,Clean Catch Urine Culture - Preliminary Gram Negative Bacillus 1 Resulted 06/27/17 23:16 Rectum VRE Culture - Final Enterococcus Faecalis - Vre Complete Critical Care - Subjective ROS Limited/Unobtainable: Yes ICU Day: 3 Intubation Day: 3 Condition: critical EKG Rhythm: Sinus Tachycardia FI02: 30 Vent Support Breath Rate: 16 Vent Support Mode: AC Vent Tidal Volume: 600 Sputum Amount: Small PIP: 23 Secretions: small Fluids: NS 150 cc/hour Tube Feeding Amount: 30 I&O: Intake and Output 06/30/17 07/01/17 19:00 07:00 Intake Total 220 ml Output Total 500 ml Balance -280 ml Free Water 50 ml Tube Feeding 120 ml Other 50 ml Output Urine Total 500 ml CXR: no change Labs: Laboratory Tests Test 06/29/17 16:00 06/30/17 04:00 Vancomycin Level Trough 9.6 ug/mL (5.0-12.0) White Blood Count 9.6 K/UL (4.8-10.8) Red Blood Count 3.65 M/UL (4.70-6.10) L Hemoglobin 10.2 G/DL (14.2-18.0) #L Hematocrit 32.2 % (42.0-52.0) #L Mean Corpuscular Volume 88 FL (80-99) Mean Corpuscular Hemoglobin 27.9 PG (27.0-31.0) Mean Corpuscular Hemoglobin Concent 31.7 G/DL (32.0-36.0) L Red Cell Distribution Width 17.2 % (11.6-14.8) H Platelet Count 231 K/UL (150-450) Mean Platelet Volume 9.0 FL (6.5-10.1) Neutrophils (%) (Auto) 72.0 % (45.0-75.0) Lymphocytes (%) (Auto) 14.3 % (20.0-45.0) L Monocytes (%) (Auto) 10.3 % (1.0-10.0) H Eosinophils (%) (Auto) 2.7 % (0.0-3.0) Basophils (%) (Auto) 0.8 % (0.0-2.0) Sodium Level 144 MMOL/L (136-145) Potassium Level 2.9 MMOL/L (3.5-5.1) L Chloride Level 115 MMOL/L (98-107) H Carbon Dioxide Level 19 MMOL/L (21-32) L Anion Gap 11 mmol/L (5-15) Blood Urea Nitrogen 15 mg/dL (7-18) Creatinine 1.0 MG/DL (0.55-1.30) Estimat Glomerular Filtration Rate > 60 mL/min (>60) Glucose Level 84 MG/DL (74-106) Calcium Level 8.3 MG/DL (8.5-10.1) L Total Bilirubin 0.3 MG/DL (0.2-1.0) Aspartate Amino Transf (AST/SGOT) 24 U/L (15-37) Alanine Aminotransferase (ALT/SGPT) 30 U/L (12-78) Alkaline Phosphatase 127 U/L (46-116) H Pro-B-Type Natriuretic Peptide 4663 pg/mL (0-125) H Total Protein 5.6 G/DL (6.4-8.2) L Albumin 1.7 G/DL (3.4-5.0) L Globulin 3.9 g/dL Albumin/Globulin Ratio 0.4 (1.0-2.7) L MIKAYLA WILLOUGHBY Jun 30, 2017 12:16
[2017-06-30] MEDS: Dyna-Hex 2% Top Sol 2oz TOPIC SCH (20:09)
[2017-06-30] MEDS ORDERED: Morphine Sulfate 4mg/ml Inj IVP PRN (21:15)
[2017-06-30] MEDS ORDERED: Amikacin Rx to dose MISC PRN (21:15)
[2017-06-30] MEDS ORDERED: Albuterol/Ipratropium 3ml neb HHN PRN (21:15)
[2017-06-30] MEDS ORDERED: Miralax 17gm pkt ORAL PRN (21:15)
[2017-06-30] MEDS ORDERED: LORazepam Inj 2mg/ml 1ml IV PRN (21:30)
[2017-07-01] MEDS: Ertapenem 1 GM in NS 55 ML IV SCH (02:08)
[2017-07-01] MEDS ORDERED: Amikacin 900 MG in NS 110 ML IV SCH (03:00)
[2017-07-01 04:00] VITALS: BP 133/77
[2017-07-01 05:07] LABS: BASOPHILS % (AUTO) 0.8 % (0.0-2.0); EOSINOPHILS % (AUTO) 7.2 % (0.0-3.0); HEMATOCRIT 34.9 % (42.0-52.0); HEMOGLOBIN 11.1 G/DL (14.2-18.0); LYMPHOCYTES % (AUTO) 18.3 % (20.0-45.0); MEAN CORPUSCULAR VOLUME 88 FL (80-99); MONOCYTES % (AUTO) 9.8 % (1.0-10.0); PLATELET COUNT 238 K/UL (150-450); RED BLOOD COUNT 3.98 M/UL (4.70-6.10); RED CELL DISTRIBUTION WIDTH 16.9 % (11.6-14.8); WHITE BLOOD COUNT 9.1 K/UL (4.8-10.8)
[2017-07-01 05:28] LABS: ALANINE AMINOTRANSFERASE 23 U/L (12-78); ALBUMIN 1.7 G/DL (3.4-5.0); ALBUMIN/GLOBULIN RATIO 0.4 (1.0-2.7); ALKALINE PHOSPHATASE 135 U/L (46-116); ANION GAP 8 mmol/L (5-15); ASPARTATE AMINO TRANSFERASE 19 U/L (15-37); BILIRUBIN,TOTAL 0.3 MG/DL (0.2-1.0); BLOOD UREA NITROGEN 8 mg/dL (7-18); CALCIUM 8.2 MG/DL (8.5-10.1); CARBON DIOXIDE 21 MMOL/L (21-32); CHLORIDE 112 MMOL/L (98-107); CREATININE 0.8 MG/DL (0.55-1.30); PHOSPHORUS 2.2 MG/DL (2.5-4.9); POTASSIUM 3.8 MMOL/L (3.5-5.1); SODIUM 141 MMOL/L (136-145)
[2017-07-01 08:00] VITALS: BP 146/68
[2017-07-01] MEDS ORDERED: Tubing IV Secondary IV ONE ×3 (08:46→17:09)
[2017-07-01] MEDS ORDERED: D5 1/2NS 1000ml IV ONE (08:46)
[2017-07-01] MEDS: Pantoprazole Inj IVP SCH (08:51)
--- NOTE | 2017-07-01 08:53 | Infectious Diseases Prog Note ---
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 Dementia Anemia P: Continue Ertapenem, discontinue Amikacin & Flagyl Start on Tygacil Will f/u cultures Subjective ROS Limited/Unobtainable: Yes Allergies: Coded Allergies: NO KNOWN DRUG ALLERGIES (Verified Allergy, Unknown, 09/11/16) Objective Vital Signs Last 24 Hour Vital Signs Date Time Temp Pulse Resp B/P (MAP) Pulse Ox O2 Delivery O2 Flow Rate FiO2 07/01/17 08:00 98.2 62 18 146/68 100 Mechanical Ventilator 30 07/01/17 08:00 30 07/01/17 06:39 67 16 30 07/01/17 05:18 60 16 30 07/01/17 04:11 58 07/01/17 04:00 30 07/01/17 04:00 98.0 58 18 133/77 100 Mechanical Ventilator 30 07/01/17 03:24 64 22 30 07/01/17 01:16 60 23 30 06/30/17 23:44 98.3 61 16 143/82 100 Mechanical Ventilator 30 06/30/17 23:25 66 17 30 06/30/17 21:52 98.4 59 17 127/67 100 Mechanical Ventilator 30 06/30/17 21:15 59 16 30 06/30/17 20:33 65 06/30/17 20:00 30 06/30/17 20:00 65 16 136/68 100 Mechanical Ventilator 30 06/30/17 19:00 75 16 137/82 100 Mechanical Ventilator 30 06/30/17 18:59 59 17 30 06/30/17 18:00 64 16 126/82 100 Mechanical Ventilator 30 06/30/17 17:21 58 18 30 06/30/17 17:00 62 15 136/113 100 Mechanical Ventilator 30 06/30/17 16:00 30 06/30/17 16:00 98.7 61 16 153/83 100 Mechanical Ventilator 30 06/30/17 16:00 46 06/30/17 15:23 61 17 30 06/30/17 15:00 61 16 142/80 100 Mechanical Ventilator 30 06/30/17 14:00 56 16 131/73 100 Mechanical Ventilator 30 06/30/17 13:00 67 15 143/74 100 Mechanical Ventilator 30 06/30/17 12:58 65 16 30 06/30/17 12:00 53 06/30/17 12:00 30 06/30/17 12:00 98.4 62 15 143/74 100 Mechanical Ventilator 30 06/30/17 11:17 60 16 30 06/30/17 11:00 58 14 147/71 100 Mechanical Ventilator 35 06/30/17 10:00 60 15 138/115 100 Mechanical Ventilator 35 06/30/17 09:25 62 17 35 06/30/17 09:00 62 11 141/103 100 Mechanical Ventilator 35 Height (Feet): 6 Height (Inches): 1.00 Weight (Pounds): 136 General Appearance: no acute distress HEENT: status post trach Respiratory/Chest: lungs clear, other - on ventilator Cardiovascular: normal rate Abdomen: soft, non tender, other - Gt feeding Extremities: no edema, other - femoral central line Neurologic/Psychiatric: other - opens eyes Laboratory Tests Test 07/01/17 04:00 White Blood Count 9.1 K/UL (4.8-10.8) Red Blood Count 3.98 M/UL (4.70-6.10) L Hemoglobin 11.1 G/DL (14.2-18.0) L Hematocrit 34.9 % (42.0-52.0) L Mean Corpuscular Volume 88 FL (80-99) Mean Corpuscular Hemoglobin 27.8 PG (27.0-31.0) Mean Corpuscular Hemoglobin Concent 31.7 G/DL (32.0-36.0) L Red Cell Distribution Width 16.9 % (11.6-14.8) H Platelet Count 238 K/UL (150-450) Mean Platelet Volume 9.5 FL (6.5-10.1) Neutrophils (%) (Auto) 64.0 % (45.0-75.0) Lymphocytes (%) (Auto) 18.3 % (20.0-45.0) L Monocytes (%) (Auto) 9.8 % (1.0-10.0) Eosinophils (%) (Auto) 7.2 % (0.0-3.0) H Basophils (%) (Auto) 0.8 % (0.0-2.0) Erythrocyte Sedimentation Rate 73 MM/HR (0-20) H Sodium Level 141 MMOL/L (136-145) Potassium Level 3.8 MMOL/L (3.5-5.1) Chloride Level 112 MMOL/L (98-107) H Carbon Dioxide Level 21 MMOL/L (21-32) Anion Gap 8 mmol/L (5-15) Blood Urea Nitrogen 8 mg/dL (7-18) Creatinine 0.8 MG/DL (0.55-1.30) Estimat Glomerular Filtration Rate > 60 mL/min (>60) Glucose Level 117 MG/DL (74-106) H Calcium Level 8.2 MG/DL (8.5-10.1) L Phosphorus Level 2.2 MG/DL (2.5-4.9) L Magnesium Level 1.3 MG/DL (1.8-2.4) L Total Bilirubin 0.3 MG/DL (0.2-1.0) Aspartate Amino Transf (AST/SGOT) 19 U/L (15-37) Alanine Aminotransferase (ALT/SGPT) 23 U/L (12-78) Alkaline Phosphatase 135 U/L (46-116) H C-Reactive Protein, Quantitative 5.9 mg/dL (0.00-0.90) H Total Protein 5.7 G/DL (6.4-8.2) L Albumin 1.7 G/DL (3.4-5.0) L Globulin 4.0 g/dL Albumin/Globulin Ratio 0.4 (1.0-2.7) L Current Medications Medications (Trade) Dose Ordered Sig/Wanda Route PRN Reason Start Time Stop Time Status Last Admin Dose Admin Acetaminophen (Tylenol) 650 mg Q4H PRN ORAL fever 06/30/17 21:15 07/27/17 21:14 Albuterol/ Ipratropium (DuoNeb 0.5-3(2.5)mg/3ml) 3 ml Q4H PRN HHN Shortness of Breath 06/30/17 21:15 07/02/17 21:14 Amikacin Protocol (Amikacin pharmacy to dose) 1 ea DAILYPRN PRN MISC PER RX PROTOCOL 06/30/17 21:15 07/30/17 21:14 Amikacin Sulfate 900 mg/Sodium Chloride 113.6 ml @ 113.6 mls/ hr Q36H IV 07/01/17 03:00 07/05/17 02:59 07/01/17 03:00 Chlorhexidine Gluconate (Jasmin-Hex 2%) 1 applic DAILY@2000 TOPIC 07/01/17 20:00 07/28/17 19:59 Ertapenem 1 gm/ Sodium Chloride 55 ml @ 110 mls/hr Q24H IV 07/01/17 02:00 07/03/17 01:59 07/01/17 02:08 Heparin Sodium (Porcine) (Heparin 5000 units/ml) 5,000 units EVERY 12 HOURS SUBQ 06/30/17 21:30 07/28/17 21:29 06/30/17 21:51 Lorazepam (Ativan 2mg/ml 1ml) 2 mg Q2H PRN IV For Anxiety 06/30/17 21:30 07/04/17 23:29 Metronidazole 100 ml @ 100 mls/hr Q6HR IVPB 07/01/17 00:00 07/08/17 00:00 07/01/17 06:00 Morphine Sulfate (Morphine Sulfate) 4 mg Q4H PRN IVP Severe Pain (Pain Scale 7-10) 06/30/17 21:15 07/04/17 21:14 Ondansetron HCl (Zofran) 4 mg Q6H PRN IVP Nausea & Vomiting 06/30/17 21:15 07/27/17 21:14 Pantoprazole (Protonix) 40 mg DAILY IVP 07/01/17 09:00 07/28/17 08:59 Polyethylene Glycol (Miralax) 17 gm DAILYPRN PRN ORAL Constipation 06/30/17 21:15 07/27/17 21:14 Sodium Chloride 1,000 ml @ 150 mls/hr Q6H40M IVLG 06/30/17 21:30 07/28/17 21:29 07/01/17 06:31 SHANNA BERRY Jul 01, 2017 08:53
[2017-07-01] MEDS: Heparin 5000 units/ml inj SUBQ SCH ×2 (08:54→20:30)
[2017-07-01] MEDS ORDERED: Tigecycline 100 MG in D5W 110 ML IVPB ONE (10:00)
[2017-07-01] MEDS ORDERED: NS 275ml ONE (10:39)
--- NOTE | 2017-07-01 11:47 | Pulmonolgy Critical Care Note ---
Critical Care - Asmt/Plan Problems: (1) Septic shock (2) Acute on chronic respiratory failure (3) Acute encephalopathy (4) Gastrostomy tube dependent (5) Severe protein-calorie malnutrition (6) Severe erosive esophagitis Respiratory: adjust tidal volume, CXR Cardiac: continue to monitor HR/BP Renal: F/U I&O, keep IV fluid Infectious Disease: continue antibiotics Gastrointestinal: continue feedings/current rate Endocrine: monitor blood sugar, check TSH, continue sliding scale insulin Hematologic: transfuse if hgb<8.5 Neurologic: PRN Ativan, keep patient comfortable Prophylaxis: Protonix, Heparin Notes Reviewed: cardio, 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 with: consultants, bilingual patient support caseworkeroperations research group manager - Objective Last 24 Hour Vital Signs Date Time Temp Pulse Resp B/P (MAP) Pulse Ox O2 Delivery O2 Flow Rate FiO2 07/01/17 10:46 62 16 30 07/01/17 08:43 66 16 30 07/01/17 08:01 62 07/01/17 08:00 98.2 62 18 146/68 100 Mechanical Ventilator 30 07/01/17 08:00 30 07/01/17 06:39 67 16 30 07/01/17 05:18 60 16 30 07/01/17 04:11 58 07/01/17 04:00 30 07/01/17 04:00 98.0 58 18 133/77 100 Mechanical Ventilator 30 07/01/17 03:24 64 22 30 07/01/17 01:16 60 23 30 06/30/17 23:44 98.3 61 16 143/82 100 Mechanical Ventilator 30 06/30/17 23:25 66 17 30 06/30/17 21:52 98.4 59 17 127/67 100 Mechanical Ventilator 30 06/30/17 21:15 59 16 30 06/30/17 20:33 65 06/30/17 20:00 30 06/30/17 20:00 65 16 136/68 100 Mechanical Ventilator 30 06/30/17 19:00 75 16 137/82 100 Mechanical Ventilator 30 06/30/17 18:59 59 17 30 06/30/17 18:00 64 16 126/82 100 Mechanical Ventilator 30 06/30/17 17:21 58 18 30 06/30/17 17:00 62 15 136/113 100 Mechanical Ventilator 30 06/30/17 16:00 30 06/30/17 16:00 98.7 61 16 153/83 100 Mechanical Ventilator 30 06/30/17 16:00 46 06/30/17 15:23 61 17 30 06/30/17 15:00 61 16 142/80 100 Mechanical Ventilator 30 06/30/17 14:00 56 16 131/73 100 Mechanical Ventilator 30 06/30/17 13:00 67 15 143/74 100 Mechanical Ventilator 30 06/30/17 12:58 65 16 30 06/30/17 12:00 53 06/30/17 12:00 30 06/30/17 12:00 98.4 62 15 143/74 100 Mechanical Ventilator 30 Status: awake Condition: critical HEENT: atraumatic Neck: full ROM Lungs: clear Heart: HR/BP stable Abdomen: soft, feeding tube Extremities: edema Micro: Microbiology Date/Time Source Procedure Growth Status 06/30/17 04:00 Stool Clostridium difficile Toxin Assay - Final Complete Critical Care - Subjective ROS Limited/Unobtainable: No Interval Events: hemodynamically better Condition: critical EKG Rhythm: Sinus Bradycardia FI02: 30 Vent Support Breath Rate: 16 Vent Support Mode: AC Vent Tidal Volume: 600 Sputum Amount: Small PIP: 24 Tube Feeding Amount: 35 I&O: Intake and Output 07/01/17 07/02/17 19:00 07:00 Intake Total 705 ml Balance 705 ml IV Total 600 ml Tube Feeding 105 ml CXR: no change Labs: Laboratory Tests Test 07/01/17 04:00 White Blood Count 9.1 K/UL (4.8-10.8) Red Blood Count 3.98 M/UL (4.70-6.10) L Hemoglobin 11.1 G/DL (14.2-18.0) L Hematocrit 34.9 % (42.0-52.0) L Mean Corpuscular Volume 88 FL (80-99) Mean Corpuscular Hemoglobin 27.8 PG (27.0-31.0) Mean Corpuscular Hemoglobin Concent 31.7 G/DL (32.0-36.0) L Red Cell Distribution Width 16.9 % (11.6-14.8) H Platelet Count 238 K/UL (150-450) Mean Platelet Volume 9.5 FL (6.5-10.1) Neutrophils (%) (Auto) 64.0 % (45.0-75.0) Lymphocytes (%) (Auto) 18.3 % (20.0-45.0) L Monocytes (%) (Auto) 9.8 % (1.0-10.0) Eosinophils (%) (Auto) 7.2 % (0.0-3.0) H Basophils (%) (Auto) 0.8 % (0.0-2.0) Erythrocyte Sedimentation Rate 73 MM/HR (0-20) H Sodium Level 141 MMOL/L (136-145) Potassium Level 3.8 MMOL/L (3.5-5.1) Chloride Level 112 MMOL/L (98-107) H Carbon Dioxide Level 21 MMOL/L (21-32) Anion Gap 8 mmol/L (5-15) Blood Urea Nitrogen 8 mg/dL (7-18) Creatinine 0.8 MG/DL (0.55-1.30) Estimat Glomerular Filtration Rate > 60 mL/min (>60) Glucose Level 117 MG/DL (74-106) H Calcium Level 8.2 MG/DL (8.5-10.1) L Phosphorus Level 2.2 MG/DL (2.5-4.9) L Magnesium Level 1.3 MG/DL (1.8-2.4) L Total Bilirubin 0.3 MG/DL (0.2-1.0) Aspartate Amino Transf (AST/SGOT) 19 U/L (15-37) Alanine Aminotransferase (ALT/SGPT) 23 U/L (12-78) Alkaline Phosphatase 135 U/L (46-116) H C-Reactive Protein, Quantitative 5.9 mg/dL (0.00-0.90) H Total Protein 5.7 G/DL (6.4-8.2) L Albumin 1.7 G/DL (3.4-5.0) L Globulin 4.0 g/dL Albumin/Globulin Ratio 0.4 (1.0-2.7) L MIKAYLA WILLOUGHBY Jul 01, 2017 11:47
[2017-07-01 12:00] VITALS: BP 122/87
[2017-07-01 16:00] VITALS: BP 134/73
[2017-07-01 20:00] VITALS: BP 139/82
[2017-07-01] MEDS: Tigecycline 50 MG in D5W 110 ML IVPB SCH (20:30)
[2017-07-01] MEDS: Dyna-Hex 2% Top Sol 2oz TOPIC SCH (20:30)
[2017-07-02 00:30] VITALS: BP 146/77
[2017-07-02] MEDS: Ertapenem 1 GM in NS 55 ML IV SCH (02:00)
[2017-07-02 04:00] VITALS: BP 140/82
[2017-07-02 08:00] VITALS: BP 142/86
[2017-07-02] MEDS: Pantoprazole Inj IVP SCH (08:22)
[2017-07-02] MEDS: Tigecycline 50 MG in D5W 110 ML IVPB SCH ×2 (08:22→20:50)
[2017-07-02] MEDS: Heparin 5000 units/ml inj SUBQ SCH ×2 (08:24→21:35)
--- NOTE | 2017-07-02 10:13 | Infectious Diseases Prog Note ---
Assessment/Plan Assessment/Plan #Severe sepsis 2ry to ESBL Proteus Bacteremia and MDRO UTI, improving -Bcx 06/27 1/4 P. mirabilis ESBL (S. ERtapenem); 1/ ConS (contaminant) -u/a significant pyuria; ucx: >100K Serratia fonticola (S. Cefepime, Tygecycline), 10-20K KPC-K.pna (S. Tygeciline, Colistin/Polymixin B, Amikacin) -CXR no acute disease; sp cx: +3 KPC K. 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 # Chronic encephalopathy/dementia. #. [facility] resident. #. Functional quadriplegia/bedbound. # Frequent hospital readmissions. # Multidrug-resistant organism colonized including MRSA, VRE, KPC, MDR-ACB # No known drug allergies. #. Full Code. PLAN: -Continue IV Tygecycline #10/17-10 for UTI, Ertapenem #01/17- for bacteremia -s/p 3d IV Vancomycin 06/30 -s/p 4d Amikacin and Flagyl 07/01 -Repeat 2 sets of bcx - f/u cultures - Monitor CBC and temperatures. - Monitor BMP. - Monitor chest x-ray. - Ventilator support, tracheostomy care, and aspiration precautions. - Contact precautions Discussed with RN. Subjective Allergies: Coded Allergies: NO KNOWN DRUG ALLERGIES (Verified Allergy, Unknown, 09/11/16) Subjective afebrile leukocytosis resolved Objective Vital Signs Last 24 Hour Vital Signs Date Time Temp Pulse Resp B/P (MAP) Pulse Ox O2 Delivery O2 Flow Rate FiO2 07/02/17 08:40 51 16 30 07/02/17 08:00 98.2 66 16 142/86 100 Mechanical Ventilator 30 07/02/17 08:00 48 07/02/17 06:45 52 16 30 07/02/17 05:22 51 16 30 07/02/17 04:00 61 07/02/17 04:00 98.1 61 16 140/82 100 Mechanical Ventilator 30 07/02/17 04:00 30 07/02/17 03:21 60 16 30 07/02/17 01:11 61 17 30 07/02/17 00:30 98.3 60 16 146/77 100 Mechanical Ventilator 30 07/02/17 00:11 62 07/01/17 23:16 58 16 30 07/01/17 20:56 70 18 30 07/01/17 20:00 98.8 63 18 139/82 100 Mechanical Ventilator 30 07/01/17 20:00 30 07/01/17 19:44 66 07/01/17 19:20 61 16 30 07/01/17 16:40 63 16 30 07/01/17 16:20 30 07/01/17 16:00 98.8 60 16 134/73 100 Mechanical Ventilator 30 07/01/17 16:00 59 07/01/17 14:42 68 16 30 07/01/17 12:38 69 16 30 07/01/17 12:00 30 07/01/17 12:00 98.6 65 16 122/87 100 Mechanical Ventilator 30 07/01/17 10:46 62 16 30 Height (Feet): 6 Height (Inches): 1.00 Weight (Pounds): 136 Objective General Appearance: no acute distress HEENT: status post trach Respiratory/Chest: lungs clear, other - on ventilator Cardiovascular: normal rate Abdomen: soft, non tender, other - Gt feeding Extremities: no edema, other - femoral central line Neurologic/Psychiatric: other - opens eyes Microbiology Date/Time Source Procedure Growth Status 06/30/17 04:00 Stool Clostridium difficile Toxin Assay - Final Complete reviewed Current Medications Medications (Trade) Dose Ordered Sig/Wanda Route PRN Reason Start Time Stop Time Status Last Admin Dose Admin Acetaminophen (Tylenol) 650 mg Q4H PRN ORAL fever 06/30/17 21:15 07/27/17 21:14 Albuterol/ Ipratropium (DuoNeb 0.5-3(2.5)mg/3ml) 3 ml Q4H PRN HHN Shortness of Breath 06/30/17 21:15 07/02/17 21:14 Chlorhexidine Gluconate (Jasmin-Hex 2%) 1 applic DAILY@2000 TOPIC 07/01/17 20:00 07/28/17 19:59 07/01/17 20:30 Ertapenem 1 gm/ Sodium Chloride 55 ml @ 110 mls/hr Q24H IV 07/01/17 02:00 07/03/17 01:59 07/02/17 02:00 Heparin Sodium (Porcine) (Heparin 5000 units/ml) 5,000 units EVERY 12 HOURS SUBQ 06/30/17 21:30 07/28/17 21:29 07/02/17 08:24 Lorazepam (Ativan 2mg/ml 1ml) 2 mg Q2H PRN IV For Anxiety 06/30/17 21:30 07/04/17 23:29 Morphine Sulfate (Morphine Sulfate) 4 mg Q4H PRN IVP Severe Pain (Pain Scale 7-10) 06/30/17 21:15 07/04/17 21:14 Ondansetron HCl (Zofran) 4 mg Q6H PRN IVP Nausea & Vomiting 06/30/17 21:15 07/27/17 21:14 Pantoprazole (Protonix) 40 mg DAILY IVP 07/01/17 09:00 07/28/17 08:59 07/02/17 08:22 Polyethylene Glycol (Miralax) 17 gm DAILYPRN PRN ORAL Constipation 06/30/17 21:15 07/27/17 21:14 Sodium Chloride 1,000 ml @ 150 mls/hr Q6H40M IVLG 06/30/17 21:30 07/28/17 21:29 07/02/17 06:01 Tigecycline 50 mg/ Dextrose 110 ml @ 220 mls/hr EVERY 12 HOURS IVPB 07/01/17 21:00 07/08/17 20:59 07/02/17 08:22 Lisy Lai M.D. Jul 02, 2017 10:13
--- NOTE | 2017-07-02 10:35 | Pulmonology Progress Note ---
Assessment/Plan Problems: (1) Septic shock (2) Acute on chronic respiratory failure (3) Acute encephalopathy (4) Leukocytosis (5) Severe erosive esophagitis (6) Gastrostomy tube dependent (7) Severe protein-calorie malnutrition Respiratory: monitor respiratory rate, adjust FIO2, CXR Cardiac: continue pressors, continue to monitor HR/BP Renal: F/U I&O, keep IV fluid Infectious Disease: continue antibiotics Gastrointestinal: continue feedings/current rate Endocrine: check TSH, check HgA1C, continue sliding scale insulin Hematologic: transfuse if hgb<8.5 Neurologic: PRN Ativan, keep patient comfortable Affect: PRN ativan Prophylaxis: Protonix Disposition: keep in ICU Notes Reviewed: machine setter automatic, 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 with: nurses, case assistant Subjective ROS Limited/Unobtainable: No Constitutional: Reports: no symptoms HEENT: Repors: no symptoms Respiratory: Reports: no symptoms Allergies: Coded Allergies: NO KNOWN DRUG ALLERGIES (Verified Allergy, Unknown, 09/11/16) Objective Last 24 Hour Vital Signs Date Time Temp Pulse Resp B/P (MAP) Pulse Ox O2 Delivery O2 Flow Rate FiO2 07/02/17 08:40 51 16 30 07/02/17 08:00 30 07/02/17 08:00 98.2 66 16 142/86 100 Mechanical Ventilator 30 07/02/17 08:00 48 07/02/17 06:45 52 16 30 07/02/17 05:22 51 16 30 07/02/17 04:00 61 07/02/17 04:00 98.1 61 16 140/82 100 Mechanical Ventilator 30 07/02/17 04:00 30 07/02/17 03:21 60 16 30 07/02/17 01:11 61 17 30 07/02/17 00:30 98.3 60 16 146/77 100 Mechanical Ventilator 30 07/02/17 00:11 62 07/01/17 23:16 58 16 30 07/01/17 20:56 70 18 30 07/01/17 20:00 98.8 63 18 139/82 100 Mechanical Ventilator 30 07/01/17 20:00 30 07/01/17 19:44 66 07/01/17 19:20 61 16 30 07/01/17 16:40 63 16 30 07/01/17 16:20 30 07/01/17 16:00 98.8 60 16 134/73 100 Mechanical Ventilator 30 07/01/17 16:00 59 07/01/17 14:42 68 16 30 07/01/17 12:38 69 16 30 07/01/17 12:00 30 07/01/17 12:00 98.6 65 16 122/87 100 Mechanical Ventilator 30 07/01/17 10:46 62 16 30 General Appearance: cachetic HEENT: normocephalic, atraumatic Respiratory/Chest: chest wall non-tender, lungs clear Cardiovascular: regular rhythm Abdomen: soft, non tender Extremities: no cyanosis Skin: no lesions Neurologic/Psychiatric: no motor/sensory deficits Lymphatic: no neck adenopathy, no groin adenopathy Microbiology Date/Time Source Procedure Growth Status 06/30/17 04:00 Stool Clostridium difficile Toxin Assay - Final Complete Current Medications Medications (Trade) Dose Ordered Sig/Wanda Route PRN Reason Start Time Stop Time Status Last Admin Dose Admin Acetaminophen (Tylenol) 650 mg Q4H PRN ORAL fever 06/30/17 21:15 07/27/17 21:14 Albuterol/ Ipratropium (DuoNeb 0.5-3(2.5)mg/3ml) 3 ml Q4H PRN HHN Shortness of Breath 06/30/17 21:15 07/02/17 21:14 Chlorhexidine Gluconate (Jasmin-Hex 2%) 1 applic DAILY@2000 TOPIC 07/01/17 20:00 07/28/17 19:59 07/01/17 20:30 Ertapenem 1 gm/ Sodium Chloride 55 ml @ 110 mls/hr Q24H IV 07/01/17 02:00 07/03/17 01:59 07/02/17 02:00 Heparin Sodium (Porcine) (Heparin 5000 units/ml) 5,000 units EVERY 12 HOURS SUBQ 06/30/17 21:30 07/28/17 21:29 07/02/17 08:24 Lorazepam (Ativan 2mg/ml 1ml) 2 mg Q2H PRN IV For Anxiety 06/30/17 21:30 07/04/17 23:29 Morphine Sulfate (Morphine Sulfate) 4 mg Q4H PRN IVP Severe Pain (Pain Scale 7-10) 06/30/17 21:15 07/04/17 21:14 Ondansetron HCl (Zofran) 4 mg Q6H PRN IVP Nausea & Vomiting 06/30/17 21:15 07/27/17 21:14 Pantoprazole (Protonix) 40 mg DAILY IVP 07/01/17 09:00 07/28/17 08:59 07/02/17 08:22 Polyethylene Glycol (Miralax) 17 gm DAILYPRN PRN ORAL Constipation 06/30/17 21:15 07/27/17 21:14 Sodium Chloride 1,000 ml @ 150 mls/hr Q6H40M IVLG 06/30/17 21:30 07/28/17 21:29 07/02/17 06:01 Tigecycline 50 mg/ Dextrose 110 ml @ 220 mls/hr EVERY 12 HOURS IVPB 07/01/17 21:00 07/08/17 20:59 07/02/17 08:22 MIKAYLA WILLOUGHBY Jul 02, 2017 10:35
[2017-07-02 11:59] VITALS: BP 149/73
--- NOTE | 2017-07-02 12:10 | Cardiology Report ---
APPROVED REPORT EKG Measurement Heart [id number] Normal sinus rhythm Normal ECG
--- NOTE | 2017-07-02 12:10 | Cardiology Report ---
APPROVED REPORT EKG Measurement Heart [id number] 178P61 [id number] Normal sinus rhythm Normal ECG
--- NOTE | 2017-07-02 12:10 | Cardiology Report ---
APPROVED REPORT EKG Measurement Heart [id number] Normal sinus rhythm Normal ECG
--- NOTE | 2017-07-02 13:57 | Cardiology Report ---
APPROVED REPORT EXAM: Two-dimensional and M-mode echocardiogram with Doppler and color Doppler. INDICATION Left Ventricular Function M-Mode DIMENSIONS IVSd1.4 (0.7-1.1cm)Left Atrium (MM)3.7 (1.6-4.0cm) LVDd3.9 (3.5-5.6cm)Aortic Root3.3 (2.0-3.7cm) PWd1.4 (0.7-1.1cm)Aortic Cusp Exc.2.0 (1.5-2.0cm) LVDs2.2 (2.5-4.0cm) PWs1.7 cm Technically difficult study due to patient on ventilator. Study quality precludes accurate assessment of regional wall motion. Normal left ventricular chamber size, systolic function and wall motion to extent visualized. Left ventricular ejection fraction estimated to be 60 %. Mild left ventricular hypertrophy. Anterior Echo-free space, may be due to pericardial fat or effusion. All other cardiac chamber sizes are within normal limits. Mild focal aortic valve sclerosis with adequate cusp excursion. Mildly thickened mitral valve leaflets with normal excursion. Mild mitral annulus and aortic root calcification. Pulmonic valve not visualized. Normal tricuspid valve structure. IVC at normal size without physiological collapse. A color flow and spectral Doppler study was performed and revealed: No aortic insufficiency. No mitral regurgitation. Mitral diastolic velocities suggest reduced left ventricular relaxation c/w impaired relaxation(Grade I). Trace tricuspid regurgitation. Tricuspid systolic velocities suggests peak right ventricular systolic pressure of 15 mmHg.
[2017-07-02 16:00] VITALS: BP 156/83
[2017-07-02 20:00] VITALS: BP 116/64
[2017-07-02] MEDS: Dyna-Hex 2% Top Sol 2oz TOPIC SCH (20:11)
[2017-07-03] VITALS: BP 130/73
[2017-07-03 04:00] VITALS: BP 150/77
[2017-07-03] MEDS ORDERED: Acetaminophen 650mg/20.3ml GT PRN (05:45)
[2017-07-03] MEDS ORDERED: Miralax 17gm pkt GT PRN (05:45)
[2017-07-03 06:16] LABS: BASOPHILS % (AUTO) 0.9 % (0.0-2.0); EOSINOPHILS % (AUTO) 5.3 % (0.0-3.0); HEMOGLOBIN 11.8 G/DL (14.2-18.0); LYMPHOCYTES % (AUTO) 22.2 % (20.0-45.0); MEAN CORPUSCULAR VOLUME 86 FL (80-99); MONOCYTES % (AUTO) 7.2 % (1.0-10.0); NEUTROPHILS % (AUTO) 64.4 % (45.0-75.0); PLATELET COUNT 251 K/UL (150-450); RED BLOOD COUNT 4.05 M/UL (4.70-6.10); RED CELL DISTRIBUTION WIDTH 17.2 % (11.6-14.8); WHITE BLOOD COUNT 9.5 K/UL (4.8-10.8)
[2017-07-03 07:54] LABS: ALANINE AMINOTRANSFERASE 18 U/L (12-78); ALBUMIN 1.6 G/DL (3.4-5.0); ALBUMIN/GLOBULIN RATIO 0.4 (1.0-2.7); ALKALINE PHOSPHATASE 129 U/L (46-116); ANION GAP 11 mmol/L (5-15); ASPARTATE AMINO TRANSFERASE 16 U/L (15-37); BILIRUBIN,TOTAL 0.3 MG/DL (0.2-1.0); BLOOD UREA NITROGEN 13 mg/dL (7-18); CARBON DIOXIDE 23 MMOL/L (21-32); CHLORIDE 108 MMOL/L (98-107); CREATININE 0.7 MG/DL (0.55-1.30); PHOSPHORUS 3.7 MG/DL (2.5-4.9); SODIUM 142 MMOL/L (136-145)
[2017-07-03 08:17] VITALS: BP 103/59
[2017-07-03] MEDS: Tigecycline 50 MG in D5W 110 ML IVPB SCH ×2 (08:20→20:01)
[2017-07-03] MEDS: Pantoprazole Inj IVP SCH (08:35)
[2017-07-03] MEDS: Heparin 5000 units/ml inj SUBQ SCH ×2 (08:36→20:02)
--- NOTE | 2017-07-03 10:34 | Infectious Diseases Prog Note ---
Assessment/Plan Assessment/Plan #Severe sepsis 2ry to ESBL Proteus Bacteremia and MDRO UTI, improving -Bcx 06/27 1/4 P. mirabilis ESBL (S. ERtapenem); 1/ ConS (contaminant) -u/a significant pyuria; ucx: >100K Serratia fonticola (S. Cefepime, Tygecycline), 10-20K KPC-K.pna (S. Tygeciline, Colistin/Polymixin B, Amikacin) -CXR no acute disease; sp cx: +3 KPC K. pna, PsA, P.stuartii (colonizers) -TTE: Technically difficult study due to patient on ventilator. Anterior Echo -free space, may be due to pericardial fat or effusion.No vegetations. No significant valve abnormalities. 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 # Chronic encephalopathy/dementia. #. senior living resident. #. Functional quadriplegia/bedbound. # Frequent hospital readmissions. # Multidrug-resistant organism colonized including MRSA, VRE, KPC, MDR-ACB # No known drug allergies. #. Full Code. PLAN: -Continue IV Tygecycline #11/14-10 for UTI, Ertapenem #02/17-14 for bacteremia -s/p 3d IV Vancomycin 06/30 -s/p 4d Amikacin and Flagyl 07/01 -f/u Repeat 2 sets of bcx - f/u cultures - Monitor CBC and temperatures. - Monitor BMP. - Monitor chest x-ray. - Ventilator support, tracheostomy care, and aspiration precautions. - Contact precautions Discussed with RN. Subjective Allergies: Coded Allergies: NO KNOWN DRUG ALLERGIES (Verified Allergy, Unknown, 09/11/16) Subjective afebrile leukocytosis resolved Objective Vital Signs Last 24 Hour Vital Signs Date Time Temp Pulse Resp B/P (MAP) Pulse Ox O2 Delivery O2 Flow Rate FiO2 07/03/17 09:18 54 17 30 07/03/17 08:17 97.9 59 20 103/59 98 Mechanical Ventilator 30 07/03/17 08:03 30 07/03/17 08:00 52 07/03/17 06:53 54 16 30 07/03/17 04:59 56 15 30 07/03/17 04:00 97.5 69 18 150/77 100 Mechanical Ventilator 30 07/03/17 04:00 53 07/03/17 04:00 30 07/03/17 03:20 56 16 30 07/03/17 01:30 60 23 30 07/03/17 00:00 97.3 55 18 130/73 100 Mechanical Ventilator 30 07/03/17 00:00 61 07/03/17 00:00 30 07/02/17 23:11 54 18 30 07/02/17 23:09 54 17 Mechanical Ventilator 30 07/02/17 20:38 58 16 30 07/02/17 20:00 98.1 61 18 116/64 100 Mechanical Ventilator 30 07/02/17 20:00 30 07/02/17 19:30 59 16 30 07/02/17 19:23 59 07/02/17 18:06 61 07/02/17 17:29 58 23 30 07/02/17 16:09 30 07/02/17 16:00 98.2 66 18 156/83 100 Mechanical Ventilator 30 07/02/17 15:10 60 23 30 07/02/17 13:00 63 19 30 07/02/17 12:00 76 07/02/17 12:00 30 07/02/17 11:59 98.9 60 22 149/73 100 Mechanical Ventilator 30 07/02/17 11:25 55 17 30 Height (Feet): 6 Height (Inches): 1.00 Weight (Pounds): 136 Objective General Appearance: no acute distress HEENT: status post trach Respiratory/Chest: lungs clear, other - on ventilator Cardiovascular: normal rate Abdomen: soft, non tender, other - Gt feeding Extremities: no edema, other - femoral central line Neurologic/Psychiatric: other - opens eyes reviewed Laboratory Tests Test 07/03/17 04:00 White Blood Count 9.5 K/UL (4.8-10.8) Red Blood Count 4.05 M/UL (4.70-6.10) L Hemoglobin 11.8 G/DL (14.2-18.0) L Hematocrit 35.0 % (42.0-52.0) L Mean Corpuscular Volume 86 FL (80-99) Mean Corpuscular Hemoglobin 29.1 PG (27.0-31.0) Mean Corpuscular Hemoglobin Concent 33.7 G/DL (32.0-36.0) Red Cell Distribution Width 17.2 % (11.6-14.8) H Platelet Count 251 K/UL (150-450) Mean Platelet Volume 9.2 FL (6.5-10.1) Neutrophils (%) (Auto) 64.4 % (45.0-75.0) Lymphocytes (%) (Auto) 22.2 % (20.0-45.0) Monocytes (%) (Auto) 7.2 % (1.0-10.0) Eosinophils (%) (Auto) 5.3 % (0.0-3.0) H Basophils (%) (Auto) 0.9 % (0.0-2.0) Sodium Level 142 MMOL/L (136-145) Potassium Level 3.0 MMOL/L (3.5-5.1) L Chloride Level 108 MMOL/L (98-107) H Carbon Dioxide Level 23 MMOL/L (21-32) Anion Gap 11 mmol/L (5-15) Blood Urea Nitrogen 13 mg/dL (7-18) Creatinine 0.7 MG/DL (0.55-1.30) Estimat Glomerular Filtration Rate > 60 mL/min (>60) Glucose Level 111 MG/DL (74-106) H Calcium Level 8.0 MG/DL (8.5-10.1) L Phosphorus Level 3.7 MG/DL (2.5-4.9) Magnesium Level 1.4 MG/DL (1.8-2.4) L Total Bilirubin 0.3 MG/DL (0.2-1.0) Aspartate Amino Transf (AST/SGOT) 16 U/L (15-37) Alanine Aminotransferase (ALT/SGPT) 18 U/L (12-78) Alkaline Phosphatase 129 U/L (46-116) H Total Protein 5.6 G/DL (6.4-8.2) L Albumin 1.6 G/DL (3.4-5.0) L Globulin 4.0 g/dL Albumin/Globulin Ratio 0.4 (1.0-2.7) L Current Medications Medications (Trade) Dose Ordered Sig/Wanda Route PRN Reason Start Time Stop Time Status Last Admin Dose Admin Acetaminophen (Tylenol) 650 mg Q4H PRN GT Mild Pain/Temp > 100.5 07/03/17 05:45 08/02/17 05:44 Chlorhexidine Gluconate (Jasmin-Hex 2%) 1 applic DAILY@2000 TOPIC 07/01/17 20:00 07/28/17 19:59 07/02/17 20:11 Heparin Sodium (Porcine) (Heparin 5000 units/ml) 5,000 units EVERY 12 HOURS SUBQ 06/30/17 21:30 07/28/17 21:29 07/03/17 08:36 Lorazepam (Ativan 2mg/ml 1ml) 2 mg Q2H PRN IV For Anxiety 06/30/17 21:30 07/04/17 23:29 Morphine Sulfate (Morphine Sulfate) 4 mg Q4H PRN IVP Severe Pain (Pain Scale 7-10) 06/30/17 21:15 07/04/17 21:14 Ondansetron HCl (Zofran) 4 mg Q6H PRN IVP Nausea & Vomiting 06/30/17 21:15 07/27/17 21:14 Pantoprazole (Protonix) 40 mg DAILY IVP 07/01/17 09:00 07/28/17 08:59 07/03/17 08:35 Polyethylene Glycol (Miralax) 17 gm DAILYPRN PRN GT Constipation 07/03/17 05:45 08/02/17 05:44 Sodium Chloride 1,000 ml @ 150 mls/hr Q6H40M IVLG 06/30/17 21:30 07/28/17 21:29 07/03/17 02:59 Tigecycline 50 mg/ Dextrose 110 ml @ 220 mls/hr EVERY 12 HOURS IVPB 07/01/17 21:00 07/08/17 20:59 07/03/17 08:20 Lisy Lai M.D. Jul 03, 2017 10:34
[2017-07-03 11:34] VITALS: BP 143/72
--- NOTE | 2017-07-03 11:50 | Pulmonology Progress Note ---
Assessment/Plan Problems: (1) Septic shock (2) Acute on chronic respiratory failure (3) Acute encephalopathy (4) Leukocytosis (5) Severe erosive esophagitis (6) Gastrostomy tube dependent (7) Severe protein-calorie malnutrition Respiratory: monitor respiratory rate, adjust FIO2, CXR Cardiac: continue to monitor HR/BP Renal: F/U I&O, keep IV fluid Infectious Disease: check cultures Gastrointestinal: continue feedings/current rate Endocrine: monitor blood sugar, check HgA1C, continue sliding scale insulin Hematologic: monitor H/H, transfuse if hgb<8.5 Neurologic: PRN Morphine, keep patient comfortable Affect: PRN ativan Prophylaxis: Protonix Disposition: keep in ICU Notes Reviewed: lace mender, 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 with: nurses, consultants, immigration case worker Subjective ROS Limited/Unobtainable: No Constitutional: Reports: no symptoms Respiratory: Reports: no symptoms Allergies: Coded Allergies: NO KNOWN DRUG ALLERGIES (Verified Allergy, Unknown, 09/11/16) Objective Last 24 Hour Vital Signs Date Time Temp Pulse Resp B/P (MAP) Pulse Ox O2 Delivery O2 Flow Rate FiO2 07/03/17 11:34 98.1 72 18 143/72 98 Mechanical Ventilator 30 07/03/17 11:02 62 16 30 07/03/17 09:18 54 17 30 07/03/17 08:17 97.9 59 20 103/59 98 Mechanical Ventilator 30 07/03/17 08:03 30 07/03/17 08:00 52 07/03/17 06:53 54 16 30 07/03/17 04:59 56 15 30 07/03/17 04:00 97.5 69 18 150/77 100 Mechanical Ventilator 30 07/03/17 04:00 53 07/03/17 04:00 30 07/03/17 03:20 56 16 30 07/03/17 01:30 60 23 30 07/03/17 00:00 97.3 55 18 130/73 100 Mechanical Ventilator 30 07/03/17 00:00 61 07/03/17 00:00 30 07/02/17 23:11 54 18 30 07/02/17 23:09 54 17 Mechanical Ventilator 30 07/02/17 20:38 58 16 30 07/02/17 20:00 98.1 61 18 116/64 100 Mechanical Ventilator 30 07/02/17 20:00 30 07/02/17 19:30 59 16 30 07/02/17 19:23 59 07/02/17 18:06 61 07/02/17 17:29 58 23 30 07/02/17 16:09 30 07/02/17 16:00 98.2 66 18 156/83 100 Mechanical Ventilator 30 07/02/17 15:10 60 23 30 07/02/17 13:00 63 19 30 07/02/17 12:00 76 07/02/17 12:00 30 07/02/17 11:59 98.9 60 22 149/73 100 Mechanical Ventilator 30 Intake and Output 07/03/17 07/04/17 19:00 07:00 Intake Total 560 ml Balance 560 ml IV Total 560 ml 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: treating engineer helper II-XII grossly normal, no motor/sensory deficits Lymphatic: no neck adenopathy Laboratory Tests 07/03/17 04:00: White Blood Count 9.5, Red Blood Count 4.05L, Hemoglobin 11.8L, Hematocrit 35.0L , Mean Corpuscular Volume 86, Mean Corpuscular Hemoglobin 29.1, Mean Corpuscular Hemoglobin Concent 33.7, Red Cell Distribution Width 17.2H, Platelet Count 251, Mean Platelet Volume 9.2, Neutrophils (%) (Auto) 64.4, Lymphocytes (%) (Auto) 22.2, Monocytes (%) (Auto) 7.2, Eosinophils (%) (Auto) 5.3H, Basophils (%) (Auto) 0.9, Sodium Level 142, Potassium Level 3.0L, Chloride Level 108H, Carbon Dioxide Level 23, Anion Gap 11, Blood Urea Nitrogen 13, Creatinine 0.7, Estimat Glomerular Filtration Rate > 60, Glucose Level 111H , Calcium Level 8.0L, Phosphorus Level 3.7, Magnesium Level 1.4L, Total Bilirubin 0.3, Aspartate Amino Transf (AST/SGOT) 16, Alanine Aminotransferase ( ALT/SGPT) 18, Alkaline Phosphatase 129H, Total Protein 5.6L, Albumin 1.6L, Globulin 4.0, Albumin/Globulin Ratio 0.4L Current Medications Medications (Trade) Dose Ordered Sig/Wanda Route PRN Reason Start Time Stop Time Status Last Admin Dose Admin Acetaminophen (Tylenol) 650 mg Q4H PRN GT Mild Pain/Temp > 100.5 07/03/17 05:45 08/02/17 05:44 Chlorhexidine Gluconate (Jasmin-Hex 2%) 1 applic DAILY@2000 TOPIC 07/01/17 20:00 07/28/17 19:59 07/02/17 20:11 Heparin Sodium (Porcine) (Heparin 5000 units/ml) 5,000 units EVERY 12 HOURS SUBQ 06/30/17 21:30 07/28/17 21:29 07/03/17 08:36 Lorazepam (Ativan 2mg/ml 1ml) 2 mg Q2H PRN IV For Anxiety 06/30/17 21:30 07/04/17 23:29 Morphine Sulfate (Morphine Sulfate) 4 mg Q4H PRN IVP Severe Pain (Pain Scale 7-10) 06/30/17 21:15 07/04/17 21:14 Ondansetron HCl (Zofran) 4 mg Q6H PRN IVP Nausea & Vomiting 06/30/17 21:15 07/27/17 21:14 Pantoprazole (Protonix) 40 mg DAILY IVP 07/01/17 09:00 07/28/17 08:59 07/03/17 08:35 Polyethylene Glycol (Miralax) 17 gm DAILYPRN PRN GT Constipation 07/03/17 05:45 08/02/17 05:44 Sodium Chloride 1,000 ml @ 150 mls/hr Q6H40M IVLG 06/30/17 21:30 07/28/17 21:29 07/03/17 11:19 Tigecycline 50 mg/ Dextrose 110 ml @ 220 mls/hr EVERY 12 HOURS IVPB 07/01/17 21:00 07/08/17 20:59 07/03/17 08:20 MIKAYLA WILLOUGHBY Jul 03, 2017 11:50
[2017-07-03] MEDS ORDERED: NS 275ml ONE (14:23)
[2017-07-03] MEDS: Ertapenem 1 GM in NS 55 ML IV SCH (14:40)
[2017-07-03 16:30] VITALS: BP 102/60
[2017-07-03 20:00] VITALS: BP 103/60
[2017-07-03] MEDS: Dyna-Hex 2% Top Sol 2oz TOPIC SCH (20:01)
[2017-07-04] VITALS: BP 120/59
[2017-07-04 04:00] VITALS: BP 111/64
[2017-07-04 05:18] LABS: HEMATOCRIT 36.1 % (42.0-52.0); HEMOGLOBIN 11.6 G/DL (14.2-18.0); LYMPHOCYTES % (AUTO) 23.5 % (20.0-45.0); MEAN CORPUSCULAR VOLUME 87 FL (80-99); MONOCYTES % (AUTO) 8.3 % (1.0-10.0); NEUTROPHILS % (AUTO) 58.2 % (45.0-75.0); PLATELET COUNT 285 K/UL (150-450); RED BLOOD COUNT 4.15 M/UL (4.70-6.10); RED CELL DISTRIBUTION WIDTH 17.9 % (11.6-14.8); WHITE BLOOD COUNT 8.9 K/UL (4.8-10.8)
[2017-07-04 06:02] LABS: ALANINE AMINOTRANSFERASE 14 U/L (12-78); ALBUMIN 1.5 G/DL (3.4-5.0); ALBUMIN/GLOBULIN RATIO 0.4 (1.0-2.7); ALKALINE PHOSPHATASE 125 U/L (46-116); ANION GAP 8 mmol/L (5-15); ASPARTATE AMINO TRANSFERASE 16 U/L (15-37); BILIRUBIN,TOTAL 0.3 MG/DL (0.2-1.0); BLOOD UREA NITROGEN 15 mg/dL (7-18); CALCIUM 8.2 MG/DL (8.5-10.1); CARBON DIOXIDE 23 MMOL/L (21-32); CHLORIDE 108 MMOL/L (98-107); CREATININE 0.7 MG/DL (0.55-1.30); PHOSPHORUS 3.2 MG/DL (2.5-4.9); SODIUM 139 MMOL/L (136-145)
[2017-07-04 08:00] VITALS: BP 154/64
[2017-07-04] MEDS: Tigecycline 50 MG in D5W 110 ML IVPB SCH ×2 (08:49→20:39)
[2017-07-04] MEDS: Pantoprazole Inj IVP SCH (08:50)
[2017-07-04] MEDS: Heparin 5000 units/ml inj SUBQ SCH ×2 (08:52→20:40)
[2017-07-04] MEDS ORDERED: Tubing IV Secondary IV ONE (10:24)
--- NOTE | 2017-07-04 11:34 | Pulmonology Progress Note ---
Assessment/Plan Problems: (1) Septic shock (2) Acute on chronic respiratory failure (3) Acute encephalopathy (4) Leukocytosis (5) Severe erosive esophagitis (6) Gastrostomy tube dependent (7) Severe protein-calorie malnutrition Respiratory: adjust tidal volume, monitor respiratory rate, adjust FIO2 Cardiac: continue to monitor HR/BP Infectious Disease: check cultures, continue antibiotics, other - -Continue IV Tygecycline #3/7-10 for UTI, Ertapenem #6/-14 for bacteremia Endocrine: monitor blood sugar, check HgA1C Neurologic: PRN Ativan, PRN Morphine Affect: PRN ativan Prophylaxis: Protonix Subjective ROS Limited/Unobtainable: No Constitutional: Reports: no symptoms HEENT: Repors: no symptoms Respiratory: Reports: no symptoms Allergies: Coded Allergies: NO KNOWN DRUG ALLERGIES (Verified Allergy, Unknown, 09/11/16) Objective Last 24 Hour Vital Signs Date Time Temp Pulse Resp B/P (MAP) Pulse Ox O2 Delivery O2 Flow Rate FiO2 07/04/17 10:51 63 16 30 07/04/17 09:21 62 15 30 07/04/17 08:00 30 07/04/17 08:00 98.1 20 154/64 99 Mechanical Ventilator 30 07/04/17 07:30 63 07/04/17 06:36 59 17 30 07/04/17 04:58 56 16 30 07/04/17 04:00 30 07/04/17 04:00 72 07/04/17 04:00 98.1 65 16 111/64 98 Mechanical Ventilator 30 07/04/17 03:30 65 17 30 07/04/17 01:30 66 16 30 07/04/17 00:00 98.8 59 16 120/59 97 Mechanical Ventilator 30 07/04/17 00:00 30 07/04/17 00:00 64 07/03/17 23:30 71 16 30 07/03/17 21:23 61 18 30 07/03/17 20:00 98.8 62 20 103/60 98 Mechanical Ventilator 30 07/03/17 20:00 64 07/03/17 20:00 30 07/03/17 19:24 61 16 30 07/03/17 17:00 64 16 30 07/03/17 16:30 97.5 60 20 102/60 98 Mechanical Ventilator 30 07/03/17 16:10 64 07/03/17 16:00 30 07/03/17 14:59 66 18 30 07/03/17 12:52 74 19 30 07/03/17 12:00 30 07/03/17 11:37 73 Intake and Output 07/04/17 07/05/17 19:00 07:00 # Bowel Movements 1 General Appearance: WD/WN HEENT: normocephalic, atraumatic Respiratory/Chest: chest wall non-tender, lungs clear Cardiovascular: normal peripheral pulses, normal rate Abdomen: normal bowel sounds, no organomegaly Genitourinary: normal external genitalia Extremities: no cyanosis Neurologic/Psychiatric: engineer remote control diesel II-XII grossly normal, no motor/sensory deficits Lymphatic: no groin adenopathy Microbiology Date/Time Source Procedure Growth Status 07/02/17 11:15 Blood Blood Culture - Preliminary NO GROWTH AFTER 24 HOURS Resulted 07/02/17 11:00 Blood Blood Culture - Preliminary Resulted Laboratory Tests 07/04/17 03:35: White Blood Count 8.9, Red Blood Count 4.15L, Hemoglobin 11.6L, Hematocrit 36.1L , Mean Corpuscular Volume 87, Mean Corpuscular Hemoglobin 27.9, Mean Corpuscular Hemoglobin Concent 32.1, Red Cell Distribution Width 17.9H, Platelet Count 285, Mean Platelet Volume 8.8, Neutrophils (%) (Auto) 58.2, Lymphocytes (%) (Auto) 23.5, Monocytes (%) (Auto) 8.3, Eosinophils (%) (Auto) 9.0H, Basophils (%) (Auto) 1.0, Sodium Level 139, Potassium Level 4.0, Chloride Level 108H, Carbon Dioxide Level 23, Anion Gap 8, Blood Urea Nitrogen 15, Creatinine 0.7, Estimat Glomerular Filtration Rate > 60, Glucose Level 105, Calcium Level 8.2L, Phosphorus Level 3.2, Magnesium Level 1.6L, Total Bilirubin 0.3, Aspartate Amino Transf (AST/SGOT) 16, Alanine Aminotransferase (ALT/SGPT) 14, Alkaline Phosphatase 125H, Total Protein 5.3L, Albumin 1.5L, Globulin 3.8, Albumin/Globulin Ratio 0.4L Current Medications Medications (Trade) Dose Ordered Sig/Wanda Route PRN Reason Start Time Stop Time Status Last Admin Dose Admin Acetaminophen (Tylenol) 650 mg Q4H PRN GT Mild Pain/Temp > 100.5 07/03/17 05:45 08/02/17 05:44 Chlorhexidine Gluconate (Jasmin-Hex 2%) 1 applic DAILY@2000 TOPIC 07/01/17 20:00 07/28/17 19:59 07/03/17 20:01 Ertapenem 1 gm/ Sodium Chloride 55 ml @ 110 mls/hr Q24H IV 07/03/17 13:00 07/08/17 12:59 07/03/17 14:40 Heparin Sodium (Porcine) (Heparin 5000 units/ml) 5,000 units EVERY 12 HOURS SUBQ 06/30/17 21:30 07/28/17 21:29 07/04/17 08:52 Lorazepam (Ativan 2mg/ml 1ml) 2 mg Q2H PRN IV For Anxiety 06/30/17 21:30 07/04/17 23:29 Morphine Sulfate (Morphine Sulfate) 4 mg Q4H PRN IVP Severe Pain (Pain Scale 7-10) 06/30/17 21:15 07/04/17 21:14 Ondansetron HCl (Zofran) 4 mg Q6H PRN IVP Nausea & Vomiting 06/30/17 21:15 07/27/17 21:14 Pantoprazole (Protonix) 40 mg DAILY IVP 07/01/17 09:00 07/28/17 08:59 07/04/17 08:50 Polyethylene Glycol (Miralax) 17 gm DAILYPRN PRN GT Constipation 07/03/17 05:45 08/02/17 05:44 Sodium Chloride 1,000 ml @ 150 mls/hr Q6H40M IVLG 06/30/17 21:30 07/28/17 21:29 07/04/17 05:34 Tigecycline 50 mg/ Dextrose 110 ml @ 220 mls/hr EVERY 12 HOURS IVPB 07/01/17 21:00 07/08/17 20:59 07/04/17 08:49 MIKAYLA WILLOUGHBY Jul 04, 2017 11:34
[2017-07-04 12:00] VITALS: BP 120/59
[2017-07-04] MEDS: Ertapenem 1 GM in NS 55 ML IV SCH (12:19)
--- NOTE | 2017-07-04 14:18 | Infectious Diseases Prog Note ---
Assessment/Plan Assessment/Plan #09/13 GPC bacteremia- r/o contaminant vs real #Severe sepsis 2ry to ESBL Proteus Bacteremia and MDRO UTI, improving -Bcx 06/27 09/13 P. mirabilis ESBL (S. ERtapenem); 09/13 ConS (contaminant) -u/a significant pyuria; ucx: >100K Serratia fonticola (S. Cefepime, Tygecycline), 10-20K KPC-K.pna (S. Tygeciline, Colistin/Polymixin B, Amikacin) -CXR no acute disease; sp cx: +3 KPC K. pna, PsA, P.stuartii (colonizers) -TTE: Technically difficult study due to patient on ventilator. Anterior Echo -free space, may be due to pericardial fat or effusion.No vegetations. No significant valve abnormalities. 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 # Chronic encephalopathy/dementia. #. [facility]. #. Functional quadriplegia/bedbound. # Frequent hospital readmissions. # Multidrug-resistant organism colonized including MRSA, VRE, KPC, MDR-ACB # No known drug allergies. #. Full Code. PLAN: -Start IV Vancomycin pending ID and sensi GPC bx -obtain 2 sets of bcx -Continue IV Tygecycline #12/15- for MDRO UTI, Ertapenem #03/19- for ESBL bacteremia -s/p 3d IV Vancomycin 06/30 -s/p 4d Amikacin and Flagyl 07/01 - f/u cultures - Monitor CBC and temperatures. - Monitor BMP. - Monitor chest x-ray. - Ventilator support, tracheostomy care, and aspiration precautions. - Contact precautions Discussed with RN. Subjective Allergies: Coded Allergies: NO KNOWN DRUG ALLERGIES (Verified Allergy, Unknown, 09/11/16) Subjective afebrile leukocytosis resolved bacteremic with GPC Objective Vital Signs Last 24 Hour Vital Signs Date Time Temp Pulse Resp B/P (MAP) Pulse Ox O2 Delivery O2 Flow Rate FiO2 07/04/17 12:39 70 16 30 07/04/17 12:05 30 07/04/17 10:51 63 16 30 07/04/17 09:21 62 15 30 07/04/17 08:00 30 07/04/17 08:00 98.1 20 154/64 99 Mechanical Ventilator 30 07/04/17 07:30 63 07/04/17 06:36 59 17 30 07/04/17 04:58 56 16 30 07/04/17 04:00 30 07/04/17 04:00 72 07/04/17 04:00 98.1 65 16 111/64 98 Mechanical Ventilator 30 07/04/17 03:30 65 17 30 07/04/17 01:30 66 16 30 07/04/17 00:00 98.8 59 16 120/59 97 Mechanical Ventilator 30 07/04/17 00:00 30 07/04/17 00:00 64 07/03/17 23:30 71 16 30 07/03/17 21:23 61 18 30 07/03/17 20:00 98.8 62 20 103/60 98 Mechanical Ventilator 30 07/03/17 20:00 64 07/03/17 20:00 30 07/03/17 19:24 61 16 30 07/03/17 17:00 64 16 30 07/03/17 16:30 97.5 60 20 102/60 98 Mechanical Ventilator 30 07/03/17 16:10 64 07/03/17 16:00 30 07/03/17 14:59 66 18 30 Height (Feet): 6 Height (Inches): 1.00 Weight (Pounds): 136 Objective General Appearance: no acute distress HEENT: status post trach Respiratory/Chest: lungs clear, other - on ventilator Cardiovascular: normal rate Abdomen: soft, non tender, other - Gt feeding Extremities: no edema, other - femoral central line Neurologic/Psychiatric: other - opens eyes Microbiology Date/Time Source Procedure Growth Status 07/02/17 11:15 Blood Blood Culture - Preliminary NO GROWTH AFTER 24 HOURS Resulted 07/02/17 11:00 Blood Blood Culture - Preliminary Resulted Laboratory Tests Test 07/04/17 03:35 White Blood Count 8.9 K/UL (4.8-10.8) Red Blood Count 4.15 M/UL (4.70-6.10) L Hemoglobin 11.6 G/DL (14.2-18.0) L Hematocrit 36.1 % (42.0-52.0) L Mean Corpuscular Volume 87 FL (80-99) Mean Corpuscular Hemoglobin 27.9 PG (27.0-31.0) Mean Corpuscular Hemoglobin Concent 32.1 G/DL (32.0-36.0) Red Cell Distribution Width 17.9 % (11.6-14.8) H Platelet Count 285 K/UL (150-450) Mean Platelet Volume 8.8 FL (6.5-10.1) Neutrophils (%) (Auto) 58.2 % (45.0-75.0) Lymphocytes (%) (Auto) 23.5 % (20.0-45.0) Monocytes (%) (Auto) 8.3 % (1.0-10.0) Eosinophils (%) (Auto) 9.0 % (0.0-3.0) H Basophils (%) (Auto) 1.0 % (0.0-2.0) Sodium Level 139 MMOL/L (136-145) Potassium Level 4.0 MMOL/L (3.5-5.1) Chloride Level 108 MMOL/L (98-107) H Carbon Dioxide Level 23 MMOL/L (21-32) Anion Gap 8 mmol/L (5-15) Blood Urea Nitrogen 15 mg/dL (7-18) Creatinine 0.7 MG/DL (0.55-1.30) Estimat Glomerular Filtration Rate > 60 mL/min (>60) Glucose Level 105 MG/DL (74-106) Calcium Level 8.2 MG/DL (8.5-10.1) L Phosphorus Level 3.2 MG/DL (2.5-4.9) Magnesium Level 1.6 MG/DL (1.8-2.4) L Total Bilirubin 0.3 MG/DL (0.2-1.0) Aspartate Amino Transf (AST/SGOT) 16 U/L (15-37) Alanine Aminotransferase (ALT/SGPT) 14 U/L (12-78) Alkaline Phosphatase 125 U/L (46-116) H Total Protein 5.3 G/DL (6.4-8.2) L Albumin 1.5 G/DL (3.4-5.0) L Globulin 3.8 g/dL Albumin/Globulin Ratio 0.4 (1.0-2.7) L Current Medications Medications (Trade) Dose Ordered Sig/Wanda Route PRN Reason Start Time Stop Time Status Last Admin Dose Admin Acetaminophen (Tylenol) 650 mg Q4H PRN GT Mild Pain/Temp > 100.5 07/03/17 05:45 08/02/17 05:44 Chlorhexidine Gluconate (Jasmin-Hex 2%) 1 applic DAILY@2000 TOPIC 07/01/17 20:00 07/28/17 19:59 07/03/17 20:01 Ertapenem 1 gm/ Sodium Chloride 55 ml @ 110 mls/hr Q24H IV 07/03/17 13:00 07/08/17 12:59 07/04/17 12:19 Heparin Sodium (Porcine) (Heparin 5000 units/ml) 5,000 units EVERY 12 HOURS SUBQ 06/30/17 21:30 07/28/17 21:29 07/04/17 08:52 Lorazepam (Ativan 2mg/ml 1ml) 2 mg Q2H PRN IV For Anxiety 06/30/17 21:30 07/04/17 23:29 Morphine Sulfate (Morphine Sulfate) 4 mg Q4H PRN IVP Severe Pain (Pain Scale 7-10) 06/30/17 21:15 07/04/17 21:14 Ondansetron HCl (Zofran) 4 mg Q6H PRN IVP Nausea & Vomiting 06/30/17 21:15 07/27/17 21:14 Pantoprazole (Protonix) 40 mg DAILY IVP 07/01/17 09:00 07/28/17 08:59 07/04/17 08:50 Polyethylene Glycol (Miralax) 17 gm DAILYPRN PRN GT Constipation 07/03/17 05:45 08/02/17 05:44 Sodium Chloride 1,000 ml @ 150 mls/hr Q6H40M IVLG 06/30/17 21:30 07/28/17 21:29 07/04/17 12:18 Tigecycline 50 mg/ Dextrose 110 ml @ 220 mls/hr EVERY 12 HOURS IVPB 07/01/17 21:00 07/08/17 20:59 07/04/17 08:49 Lisy Lai M.D. Jul 04, 2017 14:17
[2017-07-04 16:00] VITALS: BP 159/93
[2017-07-04] MEDS ORDERED: Vancomycin 1gm/D5W 275ml IVPB ONE ×2 (16:00)
[2017-07-04 20:00] VITALS: BP 126/56
[2017-07-04] MEDS: Dyna-Hex 2% Top Sol 2oz TOPIC SCH (20:00)
[2017-07-05 00:01] VITALS: BP 102/63
[2017-07-05 04:00] VITALS: BP 137/81
[2017-07-05] MEDS ORDERED: Vancomycin 750mg/D5W 275ml IVPB SCH ×2 (04:00)
[2017-07-05] MEDS: Vancomycin 750mg/NS 250ml 250 ML IVPB SCH ×2 (04:01→16:19)
[2017-07-05 05:20] LABS: BASOPHILS % (AUTO) 0.9 % (0.0-2.0); EOSINOPHILS % (AUTO) 7.9 % (0.0-3.0); HEMATOCRIT 37.6 % (42.0-52.0); LYMPHOCYTES % (AUTO) 24.5 % (20.0-45.0); MEAN CORPUSCULAR VOLUME 87 FL (80-99); MONOCYTES % (AUTO) 8.5 % (1.0-10.0); NEUTROPHILS % (AUTO) 58.2 % (45.0-75.0); PLATELET COUNT 306 K/UL (150-450); RED BLOOD COUNT 4.32 M/UL (4.70-6.10); RED CELL DISTRIBUTION WIDTH 17.4 % (11.6-14.8); WHITE BLOOD COUNT 8.9 K/UL (4.8-10.8)
[2017-07-05 05:33] LABS: INR 1.2 (0.9-1.1)
[2017-07-05 06:19] LABS: ALANINE AMINOTRANSFERASE 13 U/L (12-78); ALBUMIN 1.7 G/DL (3.4-5.0); ALBUMIN/GLOBULIN RATIO 0.4 (1.0-2.7); ALKALINE PHOSPHATASE 138 U/L (46-116); ANION GAP 9 mmol/L (5-15); ASPARTATE AMINO TRANSFERASE 18 U/L (15-37); BILIRUBIN,TOTAL 0.3 MG/DL (0.2-1.0); BLOOD UREA NITROGEN 15 mg/dL (7-18); CALCIUM 8.2 MG/DL (8.5-10.1); CARBON DIOXIDE 22 MMOL/L (21-32); CHLORIDE 105 MMOL/L (98-107); CREATININE 0.7 MG/DL (0.55-1.30); POTASSIUM 3.7 MMOL/L (3.5-5.1); SODIUM 136 MMOL/L (136-145)
[2017-07-05 08:00] VITALS: BP 127/77
[2017-07-05] MEDS: Heparin 5000 units/ml inj SUBQ SCH ×2 (08:47→21:44)
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
[2017-07-05] MEDS ORDERED: Tubing IV Secondary IV ONE ×2 (10:32→15:32)
[2017-07-05] MEDS: Pantoprazole Inj IVP SCH (11:02)
[2017-07-05] MEDS: Tigecycline 50 MG in D5W 110 ML IVPB SCH ×2 (11:02→21:40)
--- NOTE | 2017-07-05 11:52 | Pulmonology Progress Note ---
Assessment/Plan Problems: (1) Septic shock (2) Acute on chronic respiratory failure (3) Acute encephalopathy (4) Leukocytosis (5) Severe erosive esophagitis (6) Gastrostomy tube dependent (7) Severe protein-calorie malnutrition Respiratory: monitor respiratory rate, adjust FIO2, CXR Cardiac: continue to monitor HR/BP Renal: F/U I&O, keep IV fluid, check electrolytes Infectious Disease: check cultures, continue antibiotics Gastrointestinal: continue feedings/current rate Endocrine: check TSH, continue sliding scale insulin Hematologic: monitor H/H, transfuse if hgb<8.5 Neurologic: PRN Morphine, keep patient comfortable Affect: PRN ativan Prophylaxis: Heparin Notes Reviewed: cardio, 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 with: nurses, consultants, porter sample case Subjective ROS Limited/Unobtainable: Yes Constitutional: Reports: no symptoms Respiratory: Reports: no symptoms Allergies: Coded Allergies: NO KNOWN DRUG ALLERGIES (Verified Allergy, Unknown, 09/11/16) Objective Last 24 Hour Vital Signs Date Time Temp Pulse Resp B/P (MAP) Pulse Ox O2 Delivery O2 Flow Rate FiO2 07/05/17 11:25 70 16 30 07/05/17 09:05 95 18 30 07/05/17 08:00 98.5 71 17 127/77 98 Mechanical Ventilator 30 07/05/17 08:00 30 07/05/17 07:46 84 07/05/17 07:00 80 21 30 07/05/17 04:51 69 16 30 07/05/17 04:00 98.4 75 21 137/81 98 Mechanical Ventilator 30 07/05/17 04:00 30 07/05/17 03:48 68 07/05/17 03:47 71 07/05/17 03:30 74 17 30 07/05/17 00:41 78 17 30 07/05/17 00:01 98.2 71 16 102/63 99 Mechanical Ventilator 30 07/05/17 00:00 69 07/04/17 23:30 72 16 30 07/04/17 21:25 66 17 30 07/04/17 20:00 73 07/04/17 20:00 98.4 72 16 126/56 100 Mechanical Ventilator 30 07/04/17 20:00 30 07/04/17 19:30 69 19 30 07/04/17 17:02 71 19 30 07/04/17 16:00 67 07/04/17 16:00 30 07/04/17 16:00 98.1 81 17 159/93 100 Mechanical Ventilator 30 07/04/17 14:59 69 16 30 07/04/17 12:39 70 16 30 07/04/17 12:05 30 07/04/17 12:00 98.8 63 16 120/59 97 Mechanical Ventilator 30 07/04/17 12:00 63 Intake and Output 07/05/17 07/06/17 19:00 07:00 # Bowel Movements 1 HEENT: normocephalic, atraumatic Respiratory/Chest: chest wall non-tender, lungs clear, normal breath sounds Cardiovascular: normal peripheral pulses, normal rate Abdomen: normal bowel sounds, soft, non tender Skin: no rash, no lesions Microbiology Date/Time Source Procedure Growth Status 07/04/17 17:00 Catheter Site Catheter Tip Culture - Preliminary Resulted Laboratory Tests 07/05/17 03:25: White Blood Count 8.9, Red Blood Count 4.32L, Hemoglobin 12.0L, Hematocrit 37.6L , Mean Corpuscular Volume 87, Mean Corpuscular Hemoglobin 27.7, Mean Corpuscular Hemoglobin Concent 31.8L, Red Cell Distribution Width 17.4H, Platelet Count 306, Mean Platelet Volume 8.5, Neutrophils (%) (Auto) 58.2, Lymphocytes (%) (Auto) 24.5, Monocytes (%) (Auto) 8.5, Eosinophils (%) (Auto) 7.9H, Basophils (%) (Auto) 0.9, Prothrombin Time 12.3H, Prothromb Time International Ratio 1.2H, Activated Partial Thromboplast Time 37H, Sodium Level 136, Potassium Level 3.7, Chloride Level 105, Carbon Dioxide Level 22, Anion Gap 9, Blood Urea Nitrogen 15, Creatinine 0.7, Estimat Glomerular Filtration Rate > 60, Glucose Level 92, Calcium Level 8.2L, Phosphorus Level 3.0, Magnesium Level 1.7L, Total Bilirubin 0.3, Aspartate Amino Transf (AST/SGOT) 18 , Alanine Aminotransferase (ALT/SGPT) 13, Alkaline Phosphatase 138H, Total Protein 5.8L, Albumin 1.7L, Globulin 4.1, Albumin/Globulin Ratio 0.4L Current Medications Medications (Trade) Dose Ordered Sig/Wanda Route PRN Reason Start Time Stop Time Status Last Admin Dose Admin Acetaminophen (Tylenol) 650 mg Q4H PRN GT Mild Pain/Temp > 100.5 07/03/17 05:45 08/02/17 05:44 Chlorhexidine Gluconate (Jasmin-Hex 2%) 1 applic DAILY@2000 TOPIC 07/01/17 20:00 07/28/17 19:59 07/03/17 20:01 Ertapenem 1 gm/ Sodium Chloride 55 ml @ 110 mls/hr Q24H IV 07/03/17 13:00 07/08/17 12:59 07/04/17 12:19 Heparin Sodium (Porcine) (Heparin 5000 units/ml) 5,000 units EVERY 12 HOURS SUBQ 06/30/17 21:30 07/28/17 21:29 07/05/17 08:47 Ondansetron HCl (Zofran) 4 mg Q6H PRN IVP Nausea & Vomiting 06/30/17 21:15 07/27/17 21:14 Pantoprazole (Protonix) 40 mg DAILY IVP 07/01/17 09:00 07/28/17 08:59 07/05/17 11:02 Polyethylene Glycol (Miralax) 17 gm DAILYPRN PRN GT Constipation 07/03/17 05:45 08/02/17 05:44 Sodium Chloride 1,000 ml @ 150 mls/hr Q6H40M IVLG 06/30/17 21:30 07/28/17 21:29 07/05/17 07:36 Tigecycline 50 mg/ Dextrose 110 ml @ 220 mls/hr EVERY 12 HOURS IVPB 07/01/17 21:00 07/08/17 20:59 07/05/17 11:02 Vancomycin HCl (Vanco rx to dose) 1 ea DAILY PRN MISC Per rx protocol 07/04/17 14:15 08/03/17 14:14 Vancomycin/Sodium Chloride 250 ml @ 167.007 mls/hr Q12HR@0400,1600 IVPB 07/05/17 04:00 07/10/17 03:59 07/05/17 04:01 MIKAYLA WILLOUGHBY Jul 05, 2017 11:52
[2017-07-05 12:00] VITALS: BP 136/73
--- NOTE | 2017-07-05 12:44 | Infectious Diseases Prog Note ---
Assessment/Plan Assessment/Plan #09/13 ConS bacteremia- likely contaminant, await repeat bcx -07/02 09/13 CoNS, bcx 07/04 pending #Severe sepsis 2ry to ESBL Proteus Bacteremia and MDRO UTI, improving -Bcx 06/27 09/13 P. mirabilis ESBL (S. ERtapenem); 09/13 ConS (contaminant) -u/a significant pyuria; ucx: >100K Serratia fonticola (S. Cefepime, Tygecycline), 10-20K KPC-K.pna (S. Tygeciline, Colistin/Polymixin B, Amikacin) -CXR no acute disease; sp cx: +3 KPC K. pna, PsA, P.stuartii (colonizers) -TTE: Technically difficult study due to patient on ventilator. Anterior Echo -free space, may be due to pericardial fat or effusion.No vegetations. No significant valve abnormalities. 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 # Chronic encephalopathy/dementia. #. residential resident. #. Functional quadriplegia/bedbound. # Frequent hospital readmissions. # Multidrug-resistant organism colonized including MRSA, VRE, KPC, MDR-ACB # No known drug allergies. #. Full Code. PLAN: -Continue IV Vancomycin #2 for now pending repaet Bcx -f/u repeat 2 sets of bcx -Continue IV Tygecycline #/-10 for MDRO UTI, Ertapenem #/-14 for ESBL bacteremia -s/p 3d IV Vancomycin 06/30 -s/p 4d Amikacin and Flagyl 07/01 - f/u cultures - Monitor CBC and temperatures. - Monitor BMP. - Monitor chest x-ray. - Ventilator support, tracheostomy care, and aspiration precautions. - Contact precautions Discussed with RN. Subjective Allergies: Coded Allergies: NO KNOWN DRUG ALLERGIES (Verified Allergy, Unknown, 09/11/16) Subjective afebrile 09/13 Cons, awaiting repat Bcx Femoral line removed Objective Vital Signs Last 24 Hour Vital Signs Date Time Temp Pulse Resp B/P (MAP) Pulse Ox O2 Delivery O2 Flow Rate FiO2 07/05/17 12:00 98.4 69 16 136/73 98 Mechanical Ventilator 30 07/05/17 12:00 30 07/05/17 11:49 71 07/05/17 11:25 70 16 30 07/05/17 09:05 95 18 30 07/05/17 08:00 98.5 71 17 127/77 98 Mechanical Ventilator 30 07/05/17 08:00 30 07/05/17 07:46 84 07/05/17 07:00 80 21 30 07/05/17 04:51 69 16 30 07/05/17 04:00 98.4 75 21 137/81 98 Mechanical Ventilator 30 07/05/17 04:00 30 07/05/17 03:48 68 07/05/17 03:47 71 07/05/17 03:30 74 17 30 07/05/17 00:41 78 17 30 07/05/17 00:01 98.2 71 16 102/63 99 Mechanical Ventilator 30 07/05/17 00:00 69 07/04/17 23:30 72 16 30 07/04/17 21:25 66 17 30 07/04/17 20:00 73 07/04/17 20:00 98.4 72 16 126/56 100 Mechanical Ventilator 30 07/04/17 20:00 30 07/04/17 19:30 69 19 30 07/04/17 17:02 71 19 30 07/04/17 16:00 67 07/04/17 16:00 30 07/04/17 16:00 98.1 81 17 159/93 100 Mechanical Ventilator 30 07/04/17 14:59 69 16 30 Height (Feet): 6 Height (Inches): 1.00 Weight (Pounds): 136 Objective General Appearance: no acute distress HEENT: status post trach Respiratory/Chest: lungs clear, other - on ventilator Cardiovascular: normal rate Abdomen: soft, non tender, other - Gt feeding Extremities: no edema, other - femoral central line Neurologic/Psychiatric: other - opens eyes Microbiology Date/Time Source Procedure Growth Status 07/04/17 17:00 Catheter Site Catheter Tip Culture - Preliminary Resulted Laboratory Tests Test 07/05/17 03:25 White Blood Count 8.9 K/UL (4.8-10.8) Red Blood Count 4.32 M/UL (4.70-6.10) L Hemoglobin 12.0 G/DL (14.2-18.0) L Hematocrit 37.6 % (42.0-52.0) L Mean Corpuscular Volume 87 FL (80-99) Mean Corpuscular Hemoglobin 27.7 PG (27.0-31.0) Mean Corpuscular Hemoglobin Concent 31.8 G/DL (32.0-36.0) L Red Cell Distribution Width 17.4 % (11.6-14.8) H Platelet Count 306 K/UL (150-450) Mean Platelet Volume 8.5 FL (6.5-10.1) Neutrophils (%) (Auto) 58.2 % (45.0-75.0) Lymphocytes (%) (Auto) 24.5 % (20.0-45.0) Monocytes (%) (Auto) 8.5 % (1.0-10.0) Eosinophils (%) (Auto) 7.9 % (0.0-3.0) H Basophils (%) (Auto) 0.9 % (0.0-2.0) Prothrombin Time 12.3 SEC (9.30-11.50) H Prothromb Time International Ratio 1.2 (0.9-1.1) H Activated Partial Thromboplast Time 37 SEC (23-33) H Sodium Level 136 MMOL/L (136-145) Potassium Level 3.7 MMOL/L (3.5-5.1) Chloride Level 105 MMOL/L (98-107) Carbon Dioxide Level 22 MMOL/L (21-32) Anion Gap 9 mmol/L (5-15) Blood Urea Nitrogen 15 mg/dL (7-18) Creatinine 0.7 MG/DL (0.55-1.30) Estimat Glomerular Filtration Rate > 60 mL/min (>60) Glucose Level 92 MG/DL (74-106) Calcium Level 8.2 MG/DL (8.5-10.1) L Phosphorus Level 3.0 MG/DL (2.5-4.9) Magnesium Level 1.7 MG/DL (1.8-2.4) L Total Bilirubin 0.3 MG/DL (0.2-1.0) Aspartate Amino Transf (AST/SGOT) 18 U/L (15-37) Alanine Aminotransferase (ALT/SGPT) 13 U/L (12-78) Alkaline Phosphatase 138 U/L (46-116) H Total Protein 5.8 G/DL (6.4-8.2) L Albumin 1.7 G/DL (3.4-5.0) L Globulin 4.1 g/dL Albumin/Globulin Ratio 0.4 (1.0-2.7) L Current Medications Medications (Trade) Dose Ordered Sig/Wanda Route PRN Reason Start Time Stop Time Status Last Admin Dose Admin Acetaminophen (Tylenol) 650 mg Q4H PRN GT Mild Pain/Temp > 100.5 07/03/17 05:45 08/02/17 05:44 Chlorhexidine Gluconate (Jasmin-Hex 2%) 1 applic DAILY@2000 TOPIC 07/01/17 20:00 07/28/17 19:59 07/03/17 20:01 Ertapenem 1 gm/ Sodium Chloride 55 ml @ 110 mls/hr Q24H IV 07/03/17 13:00 07/08/17 12:59 07/04/17 12:19 Heparin Sodium (Porcine) (Heparin 5000 units/ml) 5,000 units EVERY 12 HOURS SUBQ 06/30/17 21:30 07/28/17 21:29 07/05/17 08:47 Ondansetron HCl (Zofran) 4 mg Q6H PRN IVP Nausea & Vomiting 06/30/17 21:15 07/27/17 21:14 Pantoprazole (Protonix) 40 mg DAILY IVP 07/01/17 09:00 07/28/17 08:59 07/05/17 11:02 Polyethylene Glycol (Miralax) 17 gm DAILYPRN PRN GT Constipation 07/03/17 05:45 08/02/17 05:44 Tigecycline 50 mg/ Dextrose 110 ml @ 220 mls/hr EVERY 12 HOURS IVPB 07/01/17 21:00 07/08/17 20:59 07/05/17 11:02 Vancomycin HCl (Vanco rx to dose) 1 ea DAILY PRN MISC Per rx protocol 07/04/17 14:15 11/24/17 14:14 Vancomycin/Sodium Chloride 250 ml @ 167.007 mls/hr Q12HR@0400,1600 IVPB 07/05/17 04:00 07/10/17 03:59 07/05/17 04:01 Lisy Lai M.D. Jul 05, 2017 12:44
[2017-07-05] MEDS: Ertapenem 1 GM in NS 55 ML IV SCH (12:53)
[2017-07-05 16:00] VITALS: BP 128/74
[2017-07-05 20:00] VITALS: BP 124/80
[2017-07-05] MEDS: Dyna-Hex 2% Top Sol 2oz TOPIC SCH (21:41)
[2017-07-06] VITALS: BP 116/66
[2017-07-06 04:00] VITALS: BP 133/71
[2017-07-06] MEDS: Vancomycin 750mg/NS 250ml 250 ML IVPB SCH (04:49)
[2017-07-06 08:00] VITALS: BP 109/57
[2017-07-06] MEDS: Pantoprazole Inj IVP SCH (08:57)
[2017-07-06] MEDS: Tigecycline 50 MG in D5W 110 ML IVPB SCH ×2 (08:57→20:46)
[2017-07-06] MEDS: Heparin 5000 units/ml inj SUBQ SCH ×2 (08:58→20:47)
--- NOTE | 2017-07-06 10:41 | Infectious Diseases Prog Note ---
Assessment/Plan Assessment/Plan #09/13 ConS bacteremia- likely contaminant -07/02 09/13 CoNS, bcx 07/04 NTD #Severe sepsis 2ry to ESBL Proteus Bacteremia and MDRO UTI, improving -Bcx 06/27 09/13 P. mirabilis ESBL (S. ERtapenem); 09/13 ConS (contaminant) -u/a significant pyuria; ucx: >100K Serratia fonticola (S. Cefepime, Tygecycline), 10-20K KPC-K.pna (S. Tygeciline, Colistin/Polymixin B, Amikacin) -CXR no acute disease; sp cx: +3 KPC K. pna, PsA, P.stuartii (colonizers) -TTE: Technically difficult study due to patient on ventilator. Anterior Echo -free space, may be due to pericardial fat or effusion.No vegetations. No significant valve abnormalities. 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 # Chronic encephalopathy/dementia. #. correction resident. #. Functional quadriplegia/bedbound. # Frequent hospital readmissions. # Multidrug-resistant organism colonized including MRSA, VRE, KPC, MDR-ACB # No known drug allergies. #. Full Code. PLAN: -D/C IV Vancomycin #3 -f/u repeat 2 sets of bcx -Continue IV Tygecycline #/7-10 for MDRO UTI, Ertapenem #/-14 for ESBL bacteremia -s/p 3d IV Vancomycin 06/30 -s/p 4d Amikacin and Flagyl 07/01 - f/u cultures - Monitor CBC and temperatures. - Monitor BMP. - Monitor chest x-ray. - Ventilator support, tracheostomy care, and aspiration precautions. - Contact precautions Discussed with RN. Subjective Allergies: Coded Allergies: NO KNOWN DRUG ALLERGIES (Verified Allergy, Unknown, 09/11/16) Subjective afebrile 09/13 Cons, repeat Bcx NTD no leukocytosis Objective Vital Signs Last 24 Hour Vital Signs Date Time Temp Pulse Resp B/P (MAP) Pulse Ox O2 Delivery O2 Flow Rate FiO2 07/06/17 09:06 72 17 30 07/06/17 08:00 98.2 62 16 109/57 100 Mechanical Ventilator 30 07/06/17 07:04 60 16 30 07/06/17 05:28 67 17 30 07/06/17 04:00 98.1 72 20 133/71 100 Mechanical Ventilator 30 07/06/17 04:00 58 07/06/17 04:00 30 07/06/17 03:40 59 16 30 07/06/17 01:30 59 16 30 07/06/17 00:00 72 07/06/17 00:00 30 07/06/17 00:00 98.8 72 16 116/66 99 Mechanical Ventilator 30 07/05/17 23:00 66 16 30 07/05/17 21:30 74 16 30 07/05/17 20:00 99.2 76 16 124/80 100 Mechanical Ventilator 30 07/05/17 20:00 76 07/05/17 20:00 30 07/05/17 19:34 76 17 30 07/05/17 17:13 73 17 30 07/05/17 16:00 71 07/05/17 16:00 98.3 72 16 128/74 99 Mechanical Ventilator 30 07/05/17 16:00 30 07/05/17 15:29 98 17 30 07/05/17 13:20 70 16 30 07/05/17 12:00 98.4 69 16 136/73 98 Mechanical Ventilator 30 07/05/17 12:00 30 07/05/17 11:49 71 07/05/17 11:25 70 16 30 Height (Feet): 6 Height (Inches): 1.00 Weight (Pounds): 136 Objective General Appearance: no acute distress HEENT: status post trach Respiratory/Chest: lungs clear, other - on ventilator Cardiovascular: normal rate Abdomen: soft, non tender, other - Gt feeding Extremities: no edema, other - femoral central line Neurologic/Psychiatric: other - opens eyes Microbiology Date/Time Source Procedure Growth Status 07/04/17 16:30 Blood Blood Culture - Preliminary NO GROWTH AFTER 24 HOURS Resulted 07/04/17 17:00 Catheter Site Catheter Tip Culture - Preliminary NO GROWTH AFTER 48 HOURS Resulted Laboratory Tests Test 07/06/17 03:00 Vancomycin Level Trough 12.5 ug/mL (5.0-12.0) H Current Medications Medications (Trade) Dose Ordered Sig/Wanda Route PRN Reason Start Time Stop Time Status Last Admin Dose Admin Acetaminophen (Tylenol) 650 mg Q4H PRN GT Mild Pain/Temp > 100.5 07/03/17 05:45 08/02/17 05:44 Chlorhexidine Gluconate (Jasmin-Hex 2%) 1 applic DAILY@2000 TOPIC 07/01/17 20:00 07/28/17 19:59 07/05/17 21:41 Ertapenem 1 gm/ Sodium Chloride 55 ml @ 110 mls/hr Q24H IV 07/03/17 13:00 07/08/17 12:59 07/05/17 12:53 Heparin Sodium (Porcine) (Heparin 5000 units/ml) 5,000 units EVERY 12 HOURS SUBQ 06/30/17 21:30 07/28/17 21:29 07/06/17 08:58 Ondansetron HCl (Zofran) 4 mg Q6H PRN IVP Nausea & Vomiting 06/30/17 21:15 07/27/17 21:14 Pantoprazole (Protonix) 40 mg DAILY IVP 07/01/17 09:00 07/28/17 08:59 07/06/17 08:57 Polyethylene Glycol (Miralax) 17 gm DAILYPRN PRN GT Constipation 07/03/17 05:45 08/02/17 05:44 Tigecycline 50 mg/ Dextrose 110 ml @ 220 mls/hr EVERY 12 HOURS IVPB 07/01/17 21:00 07/08/17 20:59 07/06/17 08:57 Vancomycin HCl (Vanco rx to dose) 1 ea DAILY PRN MISC Per rx protocol 07/04/17 14:15 08/03/17 14:14 Vancomycin HCl 1 gm/Dextrose 275 ml @ 183.708 mls/hr Q12H IVPB 07/06/17 16:00 07/11/17 15:59 Lisy Lai M.D. Jul 06, 2017 10:41
[2017-07-06 12:00] VITALS: BP 138/70
[2017-07-06] MEDS: Ertapenem 1 GM in NS 55 ML IV SCH (13:11)
[2017-07-06 16:00] VITALS: BP 120/77
[2017-07-06] MEDS ORDERED: Vancomycin 1gm/D5W 275ml IVPB SCH ×2 (16:00)
[2017-07-06 20:00] VITALS: BP 131/61
[2017-07-06] MEDS: Dyna-Hex 2% Top Sol 2oz TOPIC SCH (20:00)
[2017-07-07] VITALS: BP 131/71
[2017-07-07 04:00] VITALS: BP 118/74
[2017-07-07 08:10] VITALS: BP 120/68
[2017-07-07] MEDS: Tigecycline 50 MG in D5W 110 ML IVPB SCH (08:49)
[2017-07-07] MEDS: Heparin 5000 units/ml inj SUBQ SCH (08:50)
[2017-07-07] MEDS: Pantoprazole Inj IVP SCH (08:51)
--- NOTE | 2017-07-07 09:37 | Pulmonology Progress Note ---
Assessment/Plan Problems: (1) Septic shock (2) Acute on chronic respiratory failure (3) Acute encephalopathy (4) Leukocytosis (5) Severe erosive esophagitis (6) Gastrostomy tube dependent (7) Severe protein-calorie malnutrition Respiratory: monitor respiratory rate, adjust FIO2, CXR Cardiac: continue to monitor HR/BP Renal: F/U I&O, keep IV fluid Infectious Disease: check cultures Gastrointestinal: continue feedings/current rate, hold feedings Endocrine: monitor blood sugar, check TSH, check HgA1C Hematologic: monitor H/H Neurologic: PRN Ativan Affect: PRN ativan Time Spent (Minutes): 40 Notes 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, 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, 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 with: nurses, consultants, rehabilitation case coordinator Subjective Interval Events: late note for 07/06 Constitutional: Reports: no symptoms HEENT: Repors: no symptoms Respiratory: Reports: no symptoms Allergies: Coded Allergies: NO KNOWN DRUG ALLERGIES (Verified Allergy, Unknown, 09/11/16) Objective Last 24 Hour Vital Signs Date Time Temp Pulse Resp B/P (MAP) Pulse Ox O2 Delivery O2 Flow Rate FiO2 07/07/17 09:08 80 16 30 07/07/17 08:10 98.1 73 16 120/68 100 Mechanical Ventilator 30 07/07/17 08:00 30 07/07/17 06:55 77 23 30 07/07/17 05:15 72 19 30 07/07/17 04:00 81 07/07/17 04:00 30 07/07/17 04:00 97.7 71 19 118/74 100 Mechanical Ventilator 30 07/07/17 03:16 78 18 30 07/07/17 00:51 73 22 30 07/07/17 00:00 73 07/07/17 00:00 30 07/07/17 00:00 98.5 77 19 131/71 98 Mechanical Ventilator 30 07/06/17 23:20 76 16 30 07/06/17 21:02 73 16 30 07/06/17 20:00 69 07/06/17 20:00 30 07/06/17 20:00 98.4 72 23 131/61 98 Mechanical Ventilator 30 07/06/17 19:05 72 17 30 07/06/17 17:28 77 22 30 07/06/17 16:00 98.8 77 16 120/77 98 Mechanical Ventilator 30 07/06/17 16:00 67 07/06/17 16:00 30 07/06/17 14:31 64 16 30 07/06/17 12:47 70 19 30 07/06/17 12:00 98.5 73 20 138/70 98 Mechanical Ventilator 07/06/17 12:00 30 07/06/17 12:00 73 07/06/17 11:01 80 17 30 Intake and Output 07/07/17 07/08/17 19:00 07:00 # Bowel Movements 1 General Appearance: WD/WN HEENT: normocephalic, atraumatic Respiratory/Chest: chest wall non-tender, lungs clear, chest wall tender Cardiovascular: normal rate, regularly irregular Abdomen: no organomegaly, non distended Microbiology Date/Time Source Procedure Growth Status 07/04/17 16:30 Blood Blood Culture - Preliminary NO GROWTH AFTER 24 HOURS Resulted 07/04/17 17:00 Catheter Site Catheter Tip Culture - Preliminary NO GROWTH AFTER 72 HOURS Resulted Current Medications Medications (Trade) Dose Ordered Sig/Wanda Route PRN Reason Start Time Stop Time Status Last Admin Dose Admin Acetaminophen (Tylenol) 650 mg Q4H PRN GT Mild Pain/Temp > 100.5 07/03/17 05:45 08/02/17 05:44 Ertapenem 1 gm/ Sodium Chloride 55 ml @ 110 mls/hr Q24H IV 07/03/17 13:00 07/08/17 12:59 07/06/17 13:11 Heparin Sodium (Porcine) (Heparin 5000 units/ml) 5,000 units EVERY 12 HOURS SUBQ 06/30/17 21:30 07/28/17 21:29 07/07/17 08:50 Ondansetron HCl (Zofran) 4 mg Q6H PRN IVP Nausea & Vomiting 06/30/17 21:15 07/27/17 21:14 Pantoprazole (Protonix) 40 mg DAILY IVP 07/01/17 09:00 07/28/17 08:59 07/07/17 08:51 Polyethylene Glycol (Miralax) 17 gm DAILYPRN PRN GT Constipation 07/03/17 05:45 08/02/17 05:44 Tigecycline 50 mg/ Dextrose 110 ml @ 220 mls/hr EVERY 12 HOURS IVPB 07/01/17 21:00 07/08/17 20:59 07/07/17 08:49 MIKAYLA WILLOUGHBY Jul 07, 2017 09:37
--- NOTE | 2017-07-07 09:39 | Pulmonology Progress Note ---
Assessment/Plan Problems: (1) Septic shock (2) Acute on chronic respiratory failure (3) Acute encephalopathy (4) Leukocytosis (5) Severe erosive esophagitis (6) Gastrostomy tube dependent (7) Severe protein-calorie malnutrition Respiratory: monitor respiratory rate, CXR Cardiac: continue to monitor HR/BP Renal: F/U I&O, keep IV fluid Infectious Disease: continue antibiotics Gastrointestinal: continue feedings/current rate, hold feedings Endocrine: check TSH, check HgA1C, continue sliding scale insulin Hematologic: transfuse if hgb<8.5 Neurologic: keep patient comfortable Disposition: keep in ICU Time Spent (Minutes): 40 Notes Reviewed: drain layer, 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 with: consultants, rifle case repairer Subjective ROS Limited/Unobtainable: No Constitutional: Reports: no symptoms Respiratory: Reports: no symptoms Allergies: Coded Allergies: NO KNOWN DRUG ALLERGIES (Verified Allergy, Unknown, 09/11/16) Objective Last 24 Hour Vital Signs Date Time Temp Pulse Resp B/P (MAP) Pulse Ox O2 Delivery O2 Flow Rate FiO2 07/07/17 09:08 80 16 30 07/07/17 08:10 98.1 73 16 120/68 100 Mechanical Ventilator 30 07/07/17 08:00 30 07/07/17 06:55 77 23 30 07/07/17 05:15 72 19 30 07/07/17 04:00 81 07/07/17 04:00 30 07/07/17 04:00 97.7 71 19 118/74 100 Mechanical Ventilator 30 07/07/17 03:16 78 18 30 07/07/17 00:51 73 22 30 07/07/17 00:00 73 07/07/17 00:00 30 07/07/17 00:00 98.5 77 19 131/71 98 Mechanical Ventilator 30 07/06/17 23:20 76 16 30 07/06/17 21:02 73 16 30 07/06/17 20:00 69 07/06/17 20:00 30 07/06/17 20:00 98.4 72 23 131/61 98 Mechanical Ventilator 30 07/06/17 19:05 72 17 30 07/06/17 17:28 77 22 30 07/06/17 16:00 98.8 77 16 120/77 98 Mechanical Ventilator 30 07/06/17 16:00 67 07/06/17 16:00 30 07/06/17 14:31 64 16 30 07/06/17 12:47 70 19 30 07/06/17 12:00 98.5 73 20 138/70 98 Mechanical Ventilator 07/06/17 12:00 30 07/06/17 12:00 73 07/06/17 11:01 80 17 30 Intake and Output 07/07/17 07/08/17 19:00 07:00 # Bowel Movements 1 General Appearance: WD/WN HEENT: atraumatic, anicteric, PERRL Respiratory/Chest: chest wall non-tender, normal breath sounds Cardiovascular: normal peripheral pulses, normal rate, regular rhythm Abdomen: normal bowel sounds, soft, non tender Neurologic/Psychiatric: machine deburrer II-XII grossly normal, no motor/sensory deficits Lymphatic: no groin adenopathy Microbiology Date/Time Source Procedure Growth Status 07/04/17 16:30 Blood Blood Culture - Preliminary NO GROWTH AFTER 24 HOURS Resulted 07/04/17 17:00 Catheter Site Catheter Tip Culture - Preliminary NO GROWTH AFTER 72 HOURS Resulted Current Medications Medications (Trade) Dose Ordered Sig/Wanda Route PRN Reason Start Time Stop Time Status Last Admin Dose Admin Acetaminophen (Tylenol) 650 mg Q4H PRN GT Mild Pain/Temp > 100.5 07/03/17 05:45 08/02/17 05:44 Ertapenem 1 gm/ Sodium Chloride 55 ml @ 110 mls/hr Q24H IV 07/03/17 13:00 07/08/17 12:59 07/06/17 13:11 Heparin Sodium (Porcine) (Heparin 5000 units/ml) 5,000 units EVERY 12 HOURS SUBQ 06/30/17 21:30 07/28/17 21:29 07/07/17 08:50 Ondansetron HCl (Zofran) 4 mg Q6H PRN IVP Nausea & Vomiting 06/30/17 21:15 07/27/17 21:14 Pantoprazole (Protonix) 40 mg DAILY IVP 07/01/17 09:00 07/28/17 08:59 07/07/17 08:51 Polyethylene Glycol (Miralax) 17 gm DAILYPRN PRN GT Constipation 07/03/17 05:45 08/02/17 05:44 Tigecycline 50 mg/ Dextrose 110 ml @ 220 mls/hr EVERY 12 HOURS IVPB 07/01/17 21:00 07/08/17 20:59 07/07/17 08:49 MIKAYLA WILLOUGHBY Jul 07, 2017 09:39
--- NOTE | 2017-07-07 09:39 | Pulmonology Progress Note ---
Assessment/Plan Problems: (1) Septic shock (2) Acute on chronic respiratory failure (3) Acute encephalopathy (4) Leukocytosis (5) Severe erosive esophagitis (6) Gastrostomy tube dependent (7) Severe protein-calorie malnutrition Respiratory: monitor respiratory rate, CXR Cardiac: continue to monitor HR/BP Renal: F/U I&O, keep IV fluid Infectious Disease: continue antibiotics Gastrointestinal: continue feedings/current rate, hold feedings Endocrine: check TSH, check HgA1C, continue sliding scale insulin Hematologic: transfuse if hgb<8.5 Neurologic: keep patient comfortable Disposition: keep in ICU Time Spent (Minutes): 40 Notes 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, 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 with: consultants, case coordinator Subjective ROS Limited/Unobtainable: No Constitutional: Reports: no symptoms Respiratory: Reports: no symptoms Allergies: Coded Allergies: NO KNOWN DRUG ALLERGIES (Verified Allergy, Unknown, 09/11/16) Objective Last 24 Hour Vital Signs Date Time Temp Pulse Resp B/P (MAP) Pulse Ox O2 Delivery O2 Flow Rate FiO2 07/07/17 09:08 80 16 30 07/07/17 08:10 98.1 73 16 120/68 100 Mechanical Ventilator 30 07/07/17 08:00 30 07/07/17 06:55 77 23 30 07/07/17 05:15 72 19 30 07/07/17 04:00 81 07/07/17 04:00 30 07/07/17 04:00 97.7 71 19 118/74 100 Mechanical Ventilator 30 07/07/17 03:16 78 18 30 07/07/17 00:51 73 22 30 07/07/17 00:00 73 07/07/17 00:00 30 07/07/17 00:00 98.5 77 19 131/71 98 Mechanical Ventilator 30 07/06/17 23:20 76 16 30 07/06/17 21:02 73 16 30 07/06/17 20:00 69 07/06/17 20:00 30 07/06/17 20:00 98.4 72 23 131/61 98 Mechanical Ventilator 30 07/06/17 19:05 72 17 30 07/06/17 17:28 77 22 30 07/06/17 16:00 98.8 77 16 120/77 98 Mechanical Ventilator 30 07/06/17 16:00 67 07/06/17 16:00 30 07/06/17 14:31 64 16 30 07/06/17 12:47 70 19 30 07/06/17 12:00 98.5 73 20 138/70 98 Mechanical Ventilator 07/06/17 12:00 30 07/06/17 12:00 73 07/06/17 11:01 80 17 30 Intake and Output 07/07/17 07/08/17 19:00 07:00 # Bowel Movements 1 General Appearance: WD/WN HEENT: atraumatic, anicteric, PERRL Respiratory/Chest: chest wall non-tender, normal breath sounds Cardiovascular: normal peripheral pulses, normal rate, regular rhythm Abdomen: normal bowel sounds, soft, non tender Neurologic/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: 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 grossly normal, no motor/sensory deficits Lymphatic: no groin adenopathy Microbiology Date/Time Source Procedure Growth Status 07/04/17 16:30 Blood Blood Culture - Preliminary NO GROWTH AFTER 24 HOURS Resulted 07/04/17 17:00 Catheter Site Catheter Tip Culture - Preliminary NO GROWTH AFTER 72 HOURS Resulted Current Medications Medications (Trade) Dose Ordered Sig/Wanda Route PRN Reason Start Time Stop Time Status Last Admin Dose Admin Acetaminophen (Tylenol) 650 mg Q4H PRN GT Mild Pain/Temp > 100.5 07/03/17 05:45 08/02/17 05:44 Ertapenem 1 gm/ Sodium Chloride 55 ml @ 110 mls/hr Q24H IV 07/03/17 13:00 07/08/17 12:59 07/06/17 13:11 Heparin Sodium (Porcine) (Heparin 5000 units/ml) 5,000 units EVERY 12 HOURS SUBQ 06/30/17 21:30 07/28/17 21:29 07/07/17 08:50 Ondansetron HCl (Zofran) 4 mg Q6H PRN IVP Nausea & Vomiting 06/30/17 21:15 07/27/17 21:14 Pantoprazole (Protonix) 40 mg DAILY IVP 07/01/17 09:00 07/28/17 08:59 07/07/17 08:51 Polyethylene Glycol (Miralax) 17 gm DAILYPRN PRN GT Constipation 07/03/17 05:45 08/02/17 05:44 Tigecycline 50 mg/ Dextrose 110 ml @ 220 mls/hr EVERY 12 HOURS IVPB 07/01/17 21:00 07/08/17 20:59 07/07/17 08:49 MIKAYLA WILLOUGHBY Jul 07, 2017 09:39
[2017-07-07] MEDS ORDERED: INVANZ1 G1 IM (09:41)
[2017-07-07] MEDS ORDERED: TYGACIL50 MG IVPB (09:41)
--- NOTE | 2017-07-07 09:47 | Infectious Diseases Prog Note ---
Assessment/Plan Assessment/Plan #09/13 ConS bacteremia- likely contaminant -07/02 09/13 CoNS, bcx 07/04 NTD #Severe sepsis 2ry to ESBL Proteus Bacteremia and MDRO UTI,sepsis resolved; on Abx rx -Bcx 06/27 09/13 P. mirabilis ESBL (S. ERtapenem); 09/13 ConS (contaminant) -u/a significant pyuria; ucx: >100K Serratia fonticola (S. Cefepime, Tygecycline), 10-20K KPC-K.pna (S. Tygeciline, Colistin/Polymixin B, Amikacin) -CXR no acute disease; sp cx: +3 KPC K. pna, PsA, P.stuartii (colonizers) -TTE: Technically difficult study due to patient on ventilator. Anterior Echo -free space, may be due to pericardial fat or effusion.No vegetations. No significant valve abnormalities. 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 # Chronic encephalopathy/dementia. #. senior care resident. #. Functional quadriplegia/bedbound. # Frequent hospital readmissions. # Multidrug-resistant organism colonized including MRSA, VRE, KPC, MDR-ACB # No known drug allergies. #. Full Code. PLAN: -Continue IV Tygecycline #03/16-10 for MDRO UTI, Ertapenem #06/19- for ESBL bacteremia -s/p 3d IV Vancomycin 07/06 -s/p 3d IV Vancomycin 06/30 -s/p 4d Amikacin and Flagyl 07/01 -f/u repeat 2 sets of bcx - f/u cultures - Monitor CBC and temperatures. - Monitor BMP. - Monitor chest x-ray. - Ventilator support, tracheostomy care, and aspiration precautions. - Contact precautions Discussed with RN. Subjective Allergies: Coded Allergies: NO KNOWN DRUG ALLERGIES (Verified Allergy, Unknown, 09/11/16) Subjective afebrile 09/13 Cons, repeat Bcx NTD no leukocytosis Objective Vital Signs Last 24 Hour Vital Signs Date Time Temp Pulse Resp B/P (MAP) Pulse Ox O2 Delivery O2 Flow Rate FiO2 07/07/17 09:08 80 16 30 07/07/17 08:10 98.1 73 16 120/68 100 Mechanical Ventilator 30 07/07/17 08:00 30 07/07/17 08:00 73 07/07/17 06:55 77 23 30 07/07/17 05:15 72 19 30 07/07/17 04:00 81 07/07/17 04:00 30 07/07/17 04:00 97.7 71 19 118/74 100 Mechanical Ventilator 30 07/07/17 03:16 78 18 30 07/07/17 00:51 73 22 30 07/07/17 00:00 73 07/07/17 00:00 30 07/07/17 00:00 98.5 77 19 131/71 98 Mechanical Ventilator 30 07/06/17 23:20 76 16 30 07/06/17 21:02 73 16 30 07/06/17 20:00 69 07/06/17 20:00 30 07/06/17 20:00 98.4 72 23 131/61 98 Mechanical Ventilator 30 07/06/17 19:05 72 17 30 07/06/17 17:28 77 22 30 07/06/17 16:00 98.8 77 16 120/77 98 Mechanical Ventilator 30 07/06/17 16:00 67 07/06/17 16:00 30 07/06/17 14:31 64 16 30 07/06/17 12:47 70 19 30 07/06/17 12:00 98.5 73 20 138/70 98 Mechanical Ventilator 07/06/17 12:00 30 07/06/17 12:00 73 07/06/17 11:01 80 17 30 Height (Feet): 6 Height (Inches): 1.00 Weight (Pounds): 136 Objective General Appearance: no acute distress HEENT: status post trach Respiratory/Chest: lungs clear, other - on ventilator Cardiovascular: normal rate Abdomen: soft, non tender, other - Gt feeding Extremities: no edema Neurologic/Psychiatric: other - opens eyes Microbiology Date/Time Source Procedure Growth Status 07/04/17 16:30 Blood Blood Culture - Preliminary NO GROWTH AFTER 24 HOURS Resulted 07/04/17 17:00 Catheter Site Catheter Tip Culture - Preliminary NO GROWTH AFTER 72 HOURS Resulted reviewed Current Medications Medications (Trade) Dose Ordered Sig/Wanda Route PRN Reason Start Time Stop Time Status Last Admin Dose Admin Acetaminophen (Tylenol) 650 mg Q4H PRN GT Mild Pain/Temp > 100.5 07/03/17 05:45 08/02/17 05:44 Ertapenem 1 gm/ Sodium Chloride 55 ml @ 110 mls/hr Q24H IV 07/03/17 13:00 07/08/17 12:59 07/06/17 13:11 Heparin Sodium (Porcine) (Heparin 5000 units/ml) 5,000 units EVERY 12 HOURS SUBQ 06/30/17 21:30 07/28/17 21:29 07/07/17 08:50 Ondansetron HCl (Zofran) 4 mg Q6H PRN IVP Nausea & Vomiting 06/30/17 21:15 07/27/17 21:14 Pantoprazole (Protonix) 40 mg DAILY IVP 07/01/17 09:00 07/28/17 08:59 07/07/17 08:51 Polyethylene Glycol (Miralax) 17 gm DAILYPRN PRN GT Constipation 07/03/17 05:45 08/02/17 05:44 Tigecycline 50 mg/ Dextrose 110 ml @ 220 mls/hr EVERY 12 HOURS IVPB 07/01/17 21:00 07/08/17 20:59 07/07/17 08:49 Lisy Lai M.D. Jul 07, 2017 09:47
[2017-07-07 11:58] VITALS: BP 118/93
[2017-07-07] MEDS: Ertapenem 1 GM in NS 55 ML IV SCH (13:19)
[2017-07-07 16:00] VITALS: BP 132/55
--- NOTE | 2017-07-09 15:10 | Discharge Summary ---
Discharge Summary Hospital Course Date of Admission Jun 27, 2017 at 23:30 Date of Discharge Jul 07, 2017 at 16:53 Admitting Diagnosis SEVERE SEPSIS HPI Maldonado Huffman is a 66 year old male who was admitted on Jun 27, 2017 at 23: 30 for Severe Sepsis Hospital Course dc summary #[id number] Discharge Medications New Medications: Ertapenem (Invanz) 1 Gm Vial 1 GM IM DAILY for 3 Days, VIAL Tigecycline (Tygacil) 50 Mg Vial 50 MG IVPB EVERY 12 HOURS for 3 Days, VIAL Continued Medications: Ascorbic Acid* (Vitamin C*) 500 Mg Tablet 500 MG GT DAILY, #30 TAB 0 Refills Bisacodyl (Dulcolax) 10 Mg Supp.rect 10 MG RC NEEDED PRN for Constipation, SUPP Famotidine (Famotidine) 20 Mg Tablet 20 MG GT DAILY, #60 TAB 0 Refills Folic Acid* (Folic Acid*) 1 Mg Tablet 1 MG GT DAILY, TAB Levothyroxine Sodium* (Levothyroxine Sodium*) 50 Mcg Tablet 50 MCG GT DAILY, TAB Take in the morning on an empty stomach, at least 30 minutes before food. Multivitamin Liquid* (Multi-Delyn*) 237 Ml Liquid 15 ML GT DAILY, ML Protein Supplement (Promod) 946 Ml Liquid 30 ML GT DAILY, ML Sucralfate* (Carafate*) 1 Gm Tablet 1 GM GT FOUR TIMES A DAY, TAB Zinc Sulfate (Zinc Sulfate*) 220 Mg Capsule 220 MG ORAL DAILY, CAP 0 Refills Discharge Condition Upon Discharge: stable Discharge Disposition Patient was discharged to SNF/Subacute Facility(03) Discharge Diagnoses: Discharge Instructions Discharge Instructions Special Instructions I have been assigned to complete a D/C Summary on this account. I was not involved in the patient management Amina Garcia NP (Vanchtein) Jul 09, 2017 15:10
--- NOTE | 2017-07-10 07:02 | Discharge Summary 2 SIG ---
DATE OF ADMISSION: 06/27/2017 DATE OF DISCHARGE: 07/07/2017 REASON FOR ADMISSION: 66-year-old male, a resident of the subacute facility with past medical history significant for ventilator-dependent respiratory failure, tracheostomy, dysphagia, G-tube, severe erosive esophagitis, encephalopathy, history of CVA, COPD, and diabetes, was sent from the nursing home [facility] for evaluation. The patient was noted to have leukocytosis at [facility]. Workup in the emergency room revealed WBC- 30.4. The patient was anemic with hemoglobin -9.7 and hematocrit -32.1. Lactic acid -3.3. Blood pressure - 75/51. Pulse oximetry was 99% on 35% FiO2. The patient had a low-grade fever and tachycardia. with EKG revealing sinus tachycardia. No acute ischemic changes. Troponin was negative. Urinalysis revealed evidence of UTI. Albumin - 1.9. Chest x-ray revealed no acute cardiopulmonary pathology. Potassium - 3.2 and sodium - 130. BUN -37 and creatinine- 1.3. The patient was admitted for further management with diagnoses of severe sepsis, septic shock, and urinary tract infection. HOSPITAL COURSE: The patient was admitted. The patient was pancultured. Patient was started on the IV fluids and empiric antibiotics. ID closely followed. Antibiotic regimen was optimized based on culture. Blood culture revealed Proteus ESBL. Repeated blood culture on 07/02/2017 and 07/04/2017 were negative. Urine culture revealed Klebsiella pneumoniae, carbapenem-resistant and Serratia. Sputum culture revealed Providencia, Pseudomonas, Klebsiella pneumoniae carbapenem resistant , and streptococci group G. Catheter tip culture from the central line was negative. According to the ID doctor, severe sepsis was secondary to ESBL Proteus bacteremia and multidrug-resistant organism of UTI. Per ID, sputum culture was colonized. The patient was on antibiotics. Per ID recommendation, the patient will need to be on three more days of ertapenem for ESBL bacteremia and three more days of Tigecycline for multidrug-resistant organism UTI. Blood pressure responded to IV fluids. Ventilator support provided. Tracheostomy care provided. Ventilator settings were adjusted based on the ABG results. Strict aspiration precautions were maintained. The patient was able to tolerate tube feeding. The patient had anemia, and at some point during hospitalization was required blood transfusion with hemoglobin - 7.5 and hematocrit -23.8. The patient undergone two units of packed red blood cells. Prior to discharge, hemoglobin -12 and hematocrit- 37.6. Leukocytosis, initially present,- resolved. Blood pressure remained stable after responding to IV fluids. Chest x-ray revealed no acute cardiopulmonary pathology. An echocardiogram revealed ejection fraction of 60%, mild left ventricular hypertrophy, and right ventricular systolic pressure of 15. Followup chest x-ray revealed no change from initial. Nutritional assessment confirmed that the patient had a high nutritional risk. The patient was on G-tube feeding. Added Pro-Source one pack once a day to improve nutrition. The patient was stable for discharge back to subacute facility. FINAL DIAGNOSES: 1. Severe sepsis with bacteremia (extended spectrum beta-lactamases Proteus). 2. Septic shock. 3. Acute on chronic respiratory failure. 4. Acute encephalopathy on chronic Alzheimer dementia. 5. Urinary tract infection, multidrug-resistant organism. 6. Severe erosive esophagitis. 7. Severe protein-calorie malnutrition. 8. Gastrostomy tube dependent. 9. Anemia requiring blood transfusion. DISCHARGE MEDICATIONS: Please refer to medication reconciliation list. DISCHARGE INSTRUCTIONS: The patient was discharged to subacute nursing home facility. FOLLOWUP: Follow up with the leather leveler and medical doctor at the facility. Huma Keating M.D. I have been assigned to dictate discharge summary on this account and I was not involved in the patient's management. Amina Millersandoval N.PKathie DR: NIURKA JOB#: [id number] CC: KENDRICK
--- NOTE | 2017-07-10 07:02 | Discharge Summary 2 SIG ---
DATE OF ADMISSION: 06/27/2017 DATE OF DISCHARGE: 07/07/2017 REASON FOR ADMISSION: 66-year-old male, a resident of the subacute facility with past medical history significant for ventilator-dependent respiratory failure, tracheostomy, dysphagia, G-tube, severe erosive esophagitis, encephalopathy, history of CVA, COPD, and diabetes, was sent from the [facility] for evaluation. The patient was noted to have leukocytosis at [facility]. Workup in the emergency room revealed WBC- 30.4. The patient was anemic with hemoglobin -9.7 and hematocrit -32.1. Lactic acid -3.3. Blood pressure - 75/51. Pulse oximetry was 99% on 35% FiO2. The patient had a low-grade fever and tachycardia. with EKG revealing sinus tachycardia. No acute ischemic changes. Troponin was negative. Urinalysis revealed evidence of UTI. Albumin - 1.9. Chest x-ray revealed no acute cardiopulmonary pathology. Potassium - 3.2 and sodium - 130. BUN -37 and creatinine- 1.3. The patient was admitted for further management with diagnoses of severe sepsis, septic shock, and urinary tract infection. HOSPITAL COURSE: The patient was admitted. The patient was pancultured. Patient was started on the IV fluids and empiric antibiotics. ID closely followed. Antibiotic regimen was optimized based on culture. Blood culture revealed Proteus ESBL. Repeated blood culture on 07/02/2017 and 07/04/2017 were negative. Urine culture revealed Klebsiella pneumoniae, carbapenem-resistant and Serratia. Sputum culture revealed Providencia, Pseudomonas, Klebsiella pneumoniae carbapenem resistant , and streptococci group G. Catheter tip culture from the central line was negative. According to the ID doctor, severe sepsis was secondary to ESBL Proteus bacteremia and multidrug-resistant organism of UTI. Per ID, sputum culture was colonized. The patient was on antibiotics. Per ID recommendation, the patient will need to be on three more days of ertapenem for ESBL bacteremia and three more days of Tigecycline for multidrug-resistant organism UTI. Blood pressure responded to IV fluids. Ventilator support provided. Tracheostomy care provided. Ventilator settings were adjusted based on the ABG results. Strict aspiration precautions were maintained. The patient was able to tolerate tube feeding. The patient had anemia, and at some point during hospitalization was required blood transfusion with hemoglobin - 7.5 and hematocrit -23.8. The patient undergone two units of packed red blood cells. Prior to discharge, hemoglobin -12 and hematocrit- 37.6. Leukocytosis, initially present,- resolved. Blood pressure remained stable after responding to IV fluids. Chest x-ray revealed no acute cardiopulmonary pathology. An echocardiogram revealed ejection fraction of 60%, mild left ventricular hypertrophy, and right ventricular systolic pressure of 15. Followup chest x-ray revealed no change from initial. Nutritional assessment confirmed that the patient had a high nutritional risk. The patient was on G-tube feeding. Added Pro-Source one pack once a day to improve nutrition. The patient was stable for discharge back to subacute facility. FINAL DIAGNOSES: 1. Severe sepsis with bacteremia (extended spectrum beta-lactamases Proteus). 2. Septic shock. 3. Acute on chronic respiratory failure. 4. Acute encephalopathy on chronic Alzheimer dementia. 5. Urinary tract infection, multidrug-resistant organism. 6. Severe erosive esophagitis. 7. Severe protein-calorie malnutrition. 8. Gastrostomy tube dependent. 9. Anemia requiring blood transfusion. DISCHARGE MEDICATIONS: Please refer to medication reconciliation list. DISCHARGE INSTRUCTIONS: The patient was discharged to subacute snf facility. FOLLOWUP: Follow up with the border guard and medical doctor at the facility. Huma Keating M.D. I have been assigned to dictate discharge summary on this account and I was not involved in the patient's management. Amina Millersandoval N.PKathie DR: NIURKA JOB#: [id number] CC: KENDRICK
--- NOTE | 2017-07-10 07:02 | Discharge Summary 2 SIG ---
DATE OF ADMISSION: 06/27/2017 DATE OF DISCHARGE: 07/07/2017 REASON FOR ADMISSION: 66-year-old male, a resident of the subacute facility with past medical history significant for ventilator-dependent respiratory failure, tracheostomy, dysphagia, G-tube, severe erosive esophagitis, encephalopathy, history of CVA, COPD, and diabetes, was sent from the [facility] for evaluation. The patient was noted to have leukocytosis at [facility]. Workup in the emergency room revealed WBC- 30.4. The patient was anemic with hemoglobin -9.7 and hematocrit -32.1. Lactic acid -3.3. Blood pressure - 75/51. Pulse oximetry was 99% on 35% FiO2. The patient had a low-grade fever and tachycardia. with EKG revealing sinus tachycardia. No acute ischemic changes. Troponin was negative. Urinalysis revealed evidence of UTI. Albumin - 1.9. Chest x-ray revealed no acute cardiopulmonary pathology. Potassium - 3.2 and sodium - 130. BUN -37 and creatinine- 1.3. The patient was admitted for further management with diagnoses of severe sepsis, septic shock, and urinary tract infection. HOSPITAL COURSE: The patient was admitted. The patient was pancultured. Patient was started on the IV fluids and empiric antibiotics. ID closely followed. Antibiotic regimen was optimized based on culture. Blood culture revealed Proteus ESBL. Repeated blood culture on 07/02/2017 and 07/04/2017 were negative. Urine culture revealed Klebsiella pneumoniae, carbapenem-resistant and Serratia. Sputum culture revealed Providencia, Pseudomonas, Klebsiella pneumoniae carbapenem resistant , and streptococci group G. Catheter tip culture from the central line was negative. According to the ID doctor, severe sepsis was secondary to ESBL Proteus bacteremia and multidrug-resistant organism of UTI. Per ID, sputum culture was colonized. The patient was on antibiotics. Per ID recommendation, the patient will need to be on three more days of ertapenem for ESBL bacteremia and three more days of Tigecycline for multidrug-resistant organism UTI. Blood pressure responded to IV fluids. Ventilator support provided. Tracheostomy care provided. Ventilator settings were adjusted based on the ABG results. Strict aspiration precautions were maintained. The patient was able to tolerate tube feeding. The patient had anemia, and at some point during hospitalization was required blood transfusion with hemoglobin - 7.5 and hematocrit -23.8. The patient undergone two units of packed red blood cells. Prior to discharge, hemoglobin -12 and hematocrit- 37.6. Leukocytosis, initially present,- resolved. Blood pressure remained stable after responding to IV fluids. Chest x-ray revealed no acute cardiopulmonary pathology. An echocardiogram revealed ejection fraction of 60%, mild left ventricular hypertrophy, and right ventricular systolic pressure of 15. Followup chest x-ray revealed no change from initial. Nutritional assessment confirmed that the patient had a high nutritional risk. The patient was on G-tube feeding. Added Pro-Source one pack once a day to improve nutrition. The patient was stable for discharge back to subacute facility. FINAL DIAGNOSES: 1. Severe sepsis with bacteremia (extended spectrum beta-lactamases Proteus). 2. Septic shock. 3. Acute on chronic respiratory failure. 4. Acute encephalopathy on chronic Alzheimer dementia. 5. Urinary tract infection, multidrug-resistant organism. 6. Severe erosive esophagitis. 7. Severe protein-calorie malnutrition. 8. Gastrostomy tube dependent. 9. Anemia requiring blood transfusion. DISCHARGE MEDICATIONS: Please refer to medication reconciliation list. DISCHARGE INSTRUCTIONS: The patient was discharged to subacute [facility] facility. FOLLOWUP: Follow up with the cosmetic sales consultant and medical doctor at the facility. Huma Keating M.D. I have been assigned to dictate discharge summary on this account and I was not involved in the patient's management. Amina Millersandoval N.PKathie DR: NIURKA JOB#: [id number] CC: KENDRICK
== END 2017-07-07 16:53 | DRG 870 ==
LOC: EDBD 22:48 → EMR 23:06 → ICU 23:30 → EDBEDREQ 23:46 → 2W 06-30 20:45
PROC: 06HM33Z Insertion of Infusion Device into Right Femoral Vein, Percutaneous Approach (ICD-10-PCS; principal; 2017-06-27)
PROC: 5A1955Z Respiratory Ventilation, Greater than 96 Consecutive Hours (ICD-10-PCS; principal; 2017-06-27)
DX: A41.89 Other specified sepsis (principal); J96.20 Acute and chronic respiratory failure, unspecified whether with hypoxia or hypercapnia; R65.21 Severe sepsis with septic shock; E43 Unspecified severe protein-calorie malnutrition; J44.9 Chronic obstructive pulmonary disease, unspecified; Z93.0 Tracheostomy status; R53.2 Functional quadriplegia; G30.9 Alzheimer's disease, unspecified; F02.80 Dementia in other diseases classified elsewhere, unspecified severity, without behavioral disturbance, psychotic disturbance, mood disturbance, and anxiety; N39.0 Urinary tract infection, site not specified; Z68.1 Body mass index [BMI] 19.9 or less, adult; R64 Cachexia; Z93.1 Gastrostomy status; K20.9 Esophagitis, unspecified; Z74.01 Bed confinement status; D64.9 Anemia, unspecified; Z22.322 Carrier or suspected carrier of Methicillin resistant Staphylococcus aureus; L30.9 Dermatitis, unspecified; R13.10 Dysphagia, unspecified; Z86.73 Personal history of transient ischemic attack (TIA), and cerebral infarction without residual deficits
CPT/HCPCS: 36415; 36600; 71010; 80053; 80150; 80202; 81003; 82248; 82550; 82553; 82803; 83605; 83735; 83880; 84100; 84484; 85007; 85025; 85610; 85651; 85730; 86140; 86850; 86900; 86901; 86920; 87040; 87070; 87081; 87086; 87181; 87205; 87324; 93005; 93306; 94002; 94003; 94664; 99285

== ENCOUNTER 2017-10-16 11:43 | Inpatient (IN) | payer MEDICAID, MEDICARE ==
[~2017-10-16] VITALS: Ht 177.8 cm; Wt 57.2 kg
[~2017-10-16 11:43] MED LIST changes: +BISACODYL5 MG ORAL; +INVANZ1 G1 IM
[2017-10-16] MEDS ORDERED: Vancomycin 1 GM in NS 275 ML IV ONE (13:15)
[2017-10-16] MEDS ORDERED: Heparin 2000 units/Ns 1000ml IV ONE (13:30)
[2017-10-16] MEDS ORDERED: Lidocaine 1% Plain 30 ml INJ ONE (13:30)
--- NOTE | 2017-10-16 14:51 | Diagnostic Imaging Report ---
Indication: Shortness of breath Technique: One view of the chest Comparison: 1020 10/09/2016 Findings: The lungs and pleural spaces are clear. The heart size is normal. Previously demonstrated perihilar congestive changes are no longer evident. There is a tracheostomy Impression: No acute process Tracheostomy
--- NOTE | 2017-10-16 15:08 | Diagnostic Imaging Report ---
Indications: Needs long-term IV access Technique: Procedure performed at bedside. Procedural timeout performed. Ultrasound confirms patent compressible brachial vein. Total sterile technique, including sterile probe cover and sterile gel, sterile gloves, hand hygiene, hat, mask,, sterile gown, large sterile drape, and preparation with 2% chlorhexidine utilized. Local anesthesia with 1% lidocaine. Under real-time ultrasound guidance, puncture right brachial vein using 21-gauge needle, passage 0.018 guidewire, exchange for 5 [place] peel-away sheath. 5 [place] Bard dual-lumen power PICC cut to 38 cm. It was inserted through the peel-away sheath. Peel-away sheath and guidewire removed. Catheter fixed to the skin. Both catheter ports aspirated and flushed. Patient tolerated procedure well, without immediate complication. Followup chest x-ray obtained, documents catheter tip position at the high right atrium Impression: Successful bedside placement of right arm PICC under sonographic guidance, as described above.
--- NOTE | 2017-10-16 16:13 | Emergency Room Report ---
History of Present Illness General Chief Complaint: Abnormal Labs Source: Medical Record, EMS Present Illness HPI This patient presents from a halfway facility. The patient has chronic respiratory failure. He is on a tracheostomy/ventilator and has a PEG tube. He is sent and by the [facility] because of fever and an elevated white blood cell count found on laboratory tests. The patient is unable to give a history secondary to severe chronic illness and tracheostomy. There is no other history of present illness available. Allergies: Coded Allergies: NO KNOWN DRUG ALLERGIES (Verified Allergy, Unknown, 09/11/16) Patient History Past Medical History: see triage record, DM, HTN, CT, CAD, CHF, pneumonia, GERD , GI bleed, CVA/TIA, dementia, seizures, psych hx, renal disease Past Surgical History: other - Trach/vent, PEG Social History: Denies: smoking, alcohol use, drug use Reviewed Nursing Documentation: PMH: Agreed, PSxH: Agreed Nursing Documentation-PMH Hx Cardiac Problems: Yes Hx Hypertension: Yes Hx Asthma: Yes Hx COPD: No Hx Diabetes: Yes Hx Cancer: No Hx Gastrointestinal Problems: Yes Hx Dialysis: Yes - pre renal azotemia, uti Hx Neurological Problems: Yes Hx Cerebrovascular Accident: Yes Hx Transient Ischemic Attacks: Yes Hx Dementia: Yes Hx Alzheimer's Disease: Yes Hx Parkinson's Disease: Yes Hx Encephalitis: Yes Hx Seizures: Yes Hx Epilepsy: Yes Hx Paralysis: Yes - HEMIPLEGIA Hx Concentration Difficulty: Yes Hx Speech Problem: Yes Hx Aphasia: Yes Hx Weakness: Yes Hx Fatigue: Yes Hx Neurologic Surgery: No Hx Brain Shunt: No Review of Systems All Other Systems: limited Physical Exam Vital Signs Date Time Temp Pulse Resp B/P (MAP) Pulse Ox O2 Delivery O2 Flow Rate FiO2 10/16/17 12:00 84 16 40 10/16/17 12:20 100/63 100 Mechanical Ventilator Sp02 EP Interpretation: reviewed, normal General Appearance: no apparent distress, non-toxic, cachetic, Chronically Ill Head: normocephalic, atraumatic ENT: no angioedema, other - Trach in place Neck: full range of motion, tracheotomy Respiratory: no respiratory distress, rhonchi Cardiovascular #1: regular rate, rhythm, systolic murmur Gastrointestinal: normal bowel sounds, soft, non-distended, no guarding, no rebound, other - PEG Rectal: deferred Musculoskeletal: normal range of motion Neurologic: alert, other - Unable to asses. Skin: well hydrated Medical Decision Making Diagnostic Impression: Primary Impression: Sepsis Last Vital Signs Date Time Temp Pulse Resp B/P (MAP) Pulse Ox O2 Delivery O2 Flow Rate FiO2 10/16/17 12:20 78 18 100/63 100 Mechanical Ventilator 40 Referrals: MIKAYLA WILLOUGHBY (PCP) NEVAEH ALLEN D.O. Oct 16, 2017 16:13
[2017-10-16] MEDS ORDERED: Cefepime 1gm vial ONE (16:21)
[2017-10-16] MEDS: Cefepime HCl 1 GM in NS 55 ML IV SCH (16:26)
[2017-10-16 16:34] VITALS: BP 157/88
[2017-10-16 16:40] LABS: BASOPHILS % (AUTO) 0.7 % (0.0-2.0); EOSINOPHILS % (AUTO) 11.9 % (0.0-3.0); HEMATOCRIT 27.1 % (42.0-52.0); HEMOGLOBIN 8.7 G/DL (14.2-18.0); LYMPHOCYTES % (AUTO) 19.7 % (20.0-45.0); MEAN CORPUSCULAR VOLUME 83 FL (80-99); MONOCYTES % (AUTO) 5.9 % (1.0-10.0); NEUTROPHILS % (AUTO) 61.8 % (45.0-75.0); PLATELET COUNT 454 K/UL (150-450); RED BLOOD COUNT 3.28 M/UL (4.70-6.10); RED CELL DISTRIBUTION WIDTH 15.2 % (11.6-14.8); WHITE BLOOD COUNT 12.7 K/UL (4.8-10.8)
[2017-10-16 16:58] LABS: ANION GAP 11 mmol/L (5-15); BLOOD UREA NITROGEN 25 mg/dL (7-18); CALCIUM 9.6 MG/DL (8.5-10.1); CARBON DIOXIDE 23 MMOL/L (21-32); CHLORIDE 97 MMOL/L (98-107); CREATININE 1.5 MG/DL (0.55-1.30); SODIUM 131 MMOL/L (136-145)
[2017-10-16 17:12] LABS: ALANINE AMINOTRANSFERASE 19 U/L (12-78); ALBUMIN/GLOBULIN RATIO 0.5 (1.0-2.7); ALKALINE PHOSPHATASE 120 U/L (46-116); ASPARTATE AMINO TRANSFERASE 21 U/L (15-37); BILIRUBIN,TOTAL 0.2 MG/DL (0.2-1.0); CKMB 1.9 NG/ML (0.0-3.6); CREATINE KINASE 79 U/L (26-308)
[2017-10-16] MEDS ORDERED: Vancomycin 1gm inj IVPB ONE (17:24)
[2017-10-16] MEDS ORDERED: NS 275 ML ONE (17:26)
[2017-10-16] MEDS ORDERED: NITROFURANTOIN100 MG PO (17:50)
[2017-10-16] MEDS ORDERED: FLEET ENEMA133 ML RECTAL (17:50)
[2017-10-16 18:30] VITALS: BP 128/59
--- NOTE | 2017-10-16 19:25 | History and Physical ---
History of Present Illness General Date patient seen: Oct 16, 2017 Reason for Hospitalization: Abnormal Labs Present Illness HPI 66-year-old male with chronic trach/vent Peg, bed bound, cachectic sent in by nursing facility with CC of coffee ground vomiting. increased white blood count. The patient presented emergency department for further evaluation. Patient can't give any history and all information is obtained form the records. He looks thin and chronically ill and can't give any history. Allergies: Coded Allergies: NO KNOWN DRUG ALLERGIES (Verified Allergy, Unknown, 09/11/16) Medication History Scheduled Amlodipine Besylate (Norvasc), 2.5 MG ORAL DAILY Ascorbic Acid* (Vitamin C*), 500 MG GT DAILY, (Reported) Colistimethate Sodium (Colistin), 75 MG INH Q12HR@10,22 Colistimethate Sodium (Colistin), 150 MG INH Q12HR@10,22 Docusate Sodium* (Docusate Sodium*), 100 MG GT TWICE A DAY, (Reported) Ertapenem (Invanz), 1 GM IM DAILY Famotidine (Famotidine), 20 MG GT DAILY, (Reported) Ferrous Sulfate (Ferrous Sulfate), 7.5 ML NG TWICE A DAY, (Reported) Folic Acid* (Folic Acid*), 1 MG GT DAILY, (Reported) Levothyroxine Sodium* (Levothyroxine Sodium*), 50 MCG GT DAILY, (Reported) Magnesium Hydroxide* (Milk Of Magnesia*), 30 ML GT HS, (Reported) Meropenem (Merrem), 1 GM IV EVERY 8 HOURS Meropenem-0.9% Sodium Chloride (Meropenem-0.9% NaCl 1 Gram/50), 1 GM IV EVERY 8 HOURS Multivitamin Liquid* (Multi-Delyn*), 15 ML GT DAILY, (Reported) Nitrofurantoin Macrocrystal (Nitrofurantoin), 100 MG PO BID, (Reported) Dzvnqkwpneoi-Igcz-Mzevlbsy,Iso (Zosyn 3.375 Gm Pre Mix-Bag), 3.375 GM IVPB EVERY 8 HOURS Protein Supplement (Promod), 30 ML GT DAILY, (Reported) Sucralfate* (Carafate*), 1 GM GT FOUR TIMES A DAY, (Reported) Tigecycline (Tygacil), 50 MG IVPB EVERY 12 HOURS Tigecycline (Tygacil), 50 MG IVPB EVERY 12 HOURS Trimethoprim/Sulfamethoxazole 160/800* (Bactrim Ds Tablet*), 1 TAB GT BID, ( Reported) Vancomycin Hcl/D5w (Vancomycin-D5w 1 G/250 Ml), 750 GM IVPB Q12HR, (Reported) Zinc Sulfate (Zinc Sulfate*), 220 MG ORAL DAILY, (Reported) [triamcinolone cream], 0.1 % TOPIC BID, (Reported) Scheduled PRN Acetaminophen (Acetaminophen), 640 MG GT Q4HR PRN for Prn Headache/Temp > 101, ( Reported) Bisacodyl (Dulcolax), 10 MG RC NEEDED PRN for Constipation, (Reported) Ipratropium/Albuterol Sulfate (DuoNeb 0.5-3(2.5)mg/3ml), 3 ML HHN Q4H PRN for Shortness of Breath Na Phos,M-B/Na Phos,Di-Ba* (Fleet Enema*), 133 ML RECTAL QOD PRN for Constipation, (Reported) Miscellaneous Medications Cran/Vitc/Mannose/Inulin/Brom (Uti-Stat Liquid), 3,875 MG PO, (Reported) Patient History Healthcare decision maker Resuscitation status Advanced Directive on File Past Medical/Surgical History Past Medical/Surgical History: (1) Upper GI bleed (2) Esophagitis (3) Tracheobronchitis, chronic (4) Alzheimer's dementia Review of Systems All Other Systems: negative except mentioned in HPI Physical Exam General Appearance: cachetic Lines, tubes and drains: peripheral, central line HEENT: normocephalic, atraumatic Neck: non-tender, normal alignment, supple Respiratory/Chest: chest wall non-tender, lungs clear Breasts: no masses Cardiovascular/Chest: normal peripheral pulses, regular rhythm Abdomen: normal bowel sounds, soft Genitourinary/Rectal: normal genital exam Extremities: normal range of motion Skin Exam: normal pigmentation Last 24 Hour Vital Signs Date Time Temp Pulse Resp B/P (MAP) Pulse Ox O2 Delivery O2 Flow Rate FiO2 10/16/17 19:18 89 22 30 10/16/17 18:30 97.3 90 16 128/59 100 Mechanical Ventilator 40 10/16/17 17:15 81 19 30 10/16/17 16:34 79 14 157/88 100 Mechanical Ventilator 40 10/16/17 14:58 84 20 30 10/16/17 12:45 83 16 30 10/16/17 12:20 78 18 100/63 100 Mechanical Ventilator 40 10/16/17 12:00 84 16 40 Laboratory Tests Test 10/16/17 15:30 White Blood Count 12.7 K/UL (4.8-10.8) H Red Blood Count 3.28 M/UL (4.70-6.10) L Hemoglobin 8.7 G/DL (14.2-18.0) L Hematocrit 27.1 % (42.0-52.0) L Mean Corpuscular Volume 83 FL (80-99) Mean Corpuscular Hemoglobin 26.4 PG (27.0-31.0) L Mean Corpuscular Hemoglobin Concent 31.9 G/DL (32.0-36.0) L Red Cell Distribution Width 15.2 % (11.6-14.8) H Platelet Count 454 K/UL (150-450) H Mean Platelet Volume 7.0 FL (6.5-10.1) Neutrophils (%) (Auto) 61.8 % (45.0-75.0) Lymphocytes (%) (Auto) 19.7 % (20.0-45.0) L Monocytes (%) (Auto) 5.9 % (1.0-10.0) Eosinophils (%) (Auto) 11.9 % (0.0-3.0) H Basophils (%) (Auto) 0.7 % (0.0-2.0) Sodium Level 131 MMOL/L (136-145) L Potassium Level 4.0 MMOL/L (3.5-5.1) Chloride Level 97 MMOL/L (98-107) L Carbon Dioxide Level 23 MMOL/L (21-32) Anion Gap 11 mmol/L (5-15) Blood Urea Nitrogen 25 mg/dL (7-18) H Creatinine 1.5 MG/DL (0.55-1.30) H Estimat Glomerular Filtration Rate 46.4 mL/min (>60) Glucose Level 111 MG/DL (74-106) H Lactic Acid Level 0.50 mmol/L (0.66-2.22) L Calcium Level 9.6 MG/DL (8.5-10.1) Total Bilirubin 0.2 MG/DL (0.2-1.0) Aspartate Amino Transf (AST/SGOT) 21 U/L (15-37) Alanine Aminotransferase (ALT/SGPT) 19 U/L (12-78) Alkaline Phosphatase 120 U/L (46-116) H Total Creatine Kinase 79 U/L (26-308) Creatine Kinase MB 1.9 NG/ML (0.0-3.6) Creatine Kinase MB Relative Index 2.4 Troponin I 0.007 ng/mL (0.000-0.056) Total Protein 8.6 G/DL (6.4-8.2) H Albumin 3.0 G/DL (3.4-5.0) L Globulin 5.6 g/dL Albumin/Globulin Ratio 0.5 (1.0-2.7) L Height (Feet): 5 Height (Inches): 10.00 Weight (Pounds): 170 Medications Current Medications Medications (Trade) Dose Ordered Sig/Wanda Route PRN Reason Start Time Stop Time Status Last Admin Dose Admin Cefepime HCl 1 gm/ Sodium Chloride 55 ml @ 110 mls/hr Q12H IV 10/16/17 13:15 10/17/17 13:14 10/16/17 16:26 Assessment/Plan Problem List: (1) Upper GI bleed ICD Codes: K92.2 - Upper gastrointestinal hemorrhage SNOMED: 24596729 (2) Acute on chronic respiratory failure ICD Codes: J96.20 - Acute and chronic respiratory failure, unspecified whether with hypoxia or hypercapnia SNOMED: 42400491 (3) Sepsis ICD Codes: A41.9 - Sepsis, unspecified organism SNOMED: 55265018 (4) Severe protein-calorie malnutrition ICD Codes: E43 - Unspecified severe protein-calorie malnutrition SNOMED: 917065020 (5) Debility ICD Codes: R53.81 - Debility SNOMED: 04546399 Respiratory: monitor respiratory rate, adjust FIO2, CXR Cardiac: continue to monitor HR/BP Renal: F/U I&O, keep IV fluid, check electrolytes Gastrointestinal: hold feedings, other - gi evaluation Endocrine: monitor blood sugar Hematologic: monitor H/H Neurologic: PRN Ativan, PRN Morphine Prophylaxis: Protonix, Heparin Notes Reviewed: renal, GI Discussed with: consultants MIKAYLA WILLOUGHBY Oct 16, 2017 19:24
[2017-10-16] MEDS ORDERED: Miralax 17gm pkt ORAL PRN (19:30)
[2017-10-16] MEDS ORDERED: Albuterol/Ipratropium 3ml neb HHN PRN (19:30)
[2017-10-16 20:46] VITALS: BP 150/91
[2017-10-16 22:00] VITALS: BP 118/85
[2017-10-16] MEDS: LORazepam Inj 2mg/ml 1ml IV PRN (22:45)
[2017-10-17] VITALS: BP 136/88
[2017-10-17] MEDS: Morphine Sulfate 4mg/ml Inj IVP PRN ×3 (00:46→16:02)
[2017-10-17] MEDS ORDERED: Cefepime 1gm vial ONE (01:12)
[2017-10-17] MEDS: Cefepime HCl 1 GM in NS 55 ML IV SCH (01:22)
[2017-10-17 04:00] VITALS: BP 142/82
[2017-10-17 05:21] LABS: HEMOGLOBIN 7.7 G/DL (14.2-18.0); MEAN CORPUSCULAR VOLUME 83 FL (80-99); PLATELET COUNT 385 K/UL (150-450); RED BLOOD COUNT 2.89 M/UL (4.70-6.10); RED CELL DISTRIBUTION WIDTH 15.3 % (11.6-14.8); WHITE BLOOD COUNT 12.2 K/UL (4.8-10.8)
[2017-10-17 05:37] LABS: ALBUMIN 2.6 G/DL (3.4-5.0); ANION GAP 9 mmol/L (5-15); BLOOD UREA NITROGEN 16 mg/dL (7-18); CALCIUM 8.7 MG/DL (8.5-10.1); CARBON DIOXIDE 21 MMOL/L (21-32); CHLORIDE 104 MMOL/L (98-107); CREATININE 1.3 MG/DL (0.55-1.30); PHOSPHORUS 2.8 MG/DL (2.5-4.9); POTASSIUM 4.2 MMOL/L (3.5-5.1); SODIUM 134 MMOL/L (136-145)
[2017-10-17] MEDS: LORazepam Inj 2mg/ml 1ml IV PRN ×2 (08:42→16:01)
--- NOTE | 2017-10-17 10:12 | Pulmonolgy Critical Care Note ---
Critical Care - Asmt/Plan Problems: (1) Acute on chronic respiratory failure (2) Upper GI bleed (3) Sepsis (4) Alzheimer's dementia Respiratory: monitor respiratory rate, adjust FIO2, CXR Cardiac: continue to monitor HR/BP Renal: F/U I&O, keep IV fluid Gastrointestinal: hold feedings, abdominal imaging Endocrine: check TSH Hematologic: monitor H/H Prophylaxis: Protonix, Heparin Notes Reviewed: renal, GI Discussed with: nurses, consultants, human services case managergroup program manager - Objective Last 24 Hour Vital Signs Date Time Temp Pulse Resp B/P (MAP) Pulse Ox O2 Delivery O2 Flow Rate FiO2 10/17/17 09:13 97.7 10/17/17 09:03 69 10/17/17 08:42 81 132/81 10/17/17 08:00 30 10/17/17 07:05 81 20 30 10/17/17 05:24 88 21 30 10/17/17 04:00 30 10/17/17 04:00 98.2 92 26 142/82 100 Mechanical Ventilator 30 10/17/17 04:00 76 10/17/17 02:49 91 22 30 10/17/17 01:14 86 22 30 10/17/17 00:00 100 10/17/17 00:00 30 10/17/17 00:00 98.1 92 24 136/88 100 Mechanical Ventilator 30 10/16/17 23:57 93 20 30 10/16/17 23:01 90 19 30 10/16/17 22:00 98.1 89 20 118/85 100 Mechanical Ventilator 30 10/16/17 22:00 30 10/16/17 21:53 30 10/16/17 21:30 97.3 90 22 150/91 100 Mechanical Ventilator 30 10/16/17 20:46 90 22 150/91 100 Mechanical Ventilator 30 10/16/17 19:18 89 22 30 10/16/17 18:30 97.3 90 16 128/59 100 Mechanical Ventilator 40 10/16/17 17:15 81 19 30 10/16/17 16:34 79 14 157/88 100 Mechanical Ventilator 40 10/16/17 14:58 84 20 30 10/16/17 12:45 83 16 30 10/16/17 12:20 78 18 100/63 100 Mechanical Ventilator 40 10/16/17 12:00 84 16 40 Status: sedated Condition: critical HEENT: atraumatic Neck: full ROM Lungs: clear Heart: HR/BP stable, HR/BP unstable Abdomen: active bowel sounds, feeding tube Extremities: edema Micro: Microbiology Date/Time Source Procedure Growth Status 10/16/17 19:30 Nasal Nares Influenza Types A,B Antigen (RYDER) - Final Complete Critical Care - Subjective ROS Limited/Unobtainable: Yes Condition: critical EKG Rhythm: Sinus Rhythm FI02: 30 Vent Support Breath Rate: 16 Vent Support Mode: AC Vent Tidal Volume: 600 Sputum Amount: Moderate PEEP: 0.0 PIP: 16 I&O: Intake and Output 10/16/17 10/17/17 19:00 07:00 Intake Total 55 ml 730 ml Balance 55 ml 730 ml Intake Oral 0 ml IV Total 55 ml 730 ml # Voids 2 # Bowel Movements 3 CXR: clear Labs: Laboratory Tests Test 10/16/17 15:30 10/17/17 04:30 White Blood Count 12.7 K/UL (4.8-10.8) H 12.2 K/UL (4.8-10.8) H Red Blood Count 3.28 M/UL (4.70-6.10) L 2.89 M/UL (4.70-6.10) L Hemoglobin 8.7 G/DL (14.2-18.0) L 7.7 G/DL (14.2-18.0) L Hematocrit 27.1 % (42.0-52.0) L 24.0 % (42.0-52.0) L Mean Corpuscular Volume 83 FL (80-99) 83 FL (80-99) Mean Corpuscular Hemoglobin 26.4 PG (27.0-31.0) L 26.8 PG (27.0-31.0) L Mean Corpuscular Hemoglobin Concent 31.9 G/DL (32.0-36.0) L 32.2 G/DL (32.0-36.0) Red Cell Distribution Width 15.2 % (11.6-14.8) H 15.3 % (11.6-14.8) H Platelet Count 454 K/UL (150-450) H 385 K/UL (150-450) Mean Platelet Volume 7.0 FL (6.5-10.1) 6.9 FL (6.5-10.1) Neutrophils (%) (Auto) 61.8 % (45.0-75.0) % (45.0-75.0) Lymphocytes (%) (Auto) 19.7 % (20.0-45.0) L % (20.0-45.0) Monocytes (%) (Auto) 5.9 % (1.0-10.0) % (1.0-10.0) Eosinophils (%) (Auto) 11.9 % (0.0-3.0) H % (0.0-3.0) Basophils (%) (Auto) 0.7 % (0.0-2.0) % (0.0-2.0) Sodium Level 131 MMOL/L (136-145) L 134 MMOL/L (136-145) L Potassium Level 4.0 MMOL/L (3.5-5.1) 4.2 MMOL/L (3.5-5.1) Chloride Level 97 MMOL/L (98-107) L 104 MMOL/L (98-107) Carbon Dioxide Level 23 MMOL/L (21-32) 21 MMOL/L (21-32) Anion Gap 11 mmol/L (5-15) 9 mmol/L (5-15) Blood Urea Nitrogen 25 mg/dL (7-18) H 16 mg/dL (7-18) Creatinine 1.5 MG/DL (0.55-1.30) H 1.3 MG/DL (0.55-1.30) Estimat Glomerular Filtration Rate 46.4 mL/min (>60) 54.7 mL/min (>60) Glucose Level 111 MG/DL (74-106) H 101 MG/DL (74-106) Lactic Acid Level 0.50 mmol/L (0.66-2.22) L Calcium Level 9.6 MG/DL (8.5-10.1) 8.7 MG/DL (8.5-10.1) Total Bilirubin 0.2 MG/DL (0.2-1.0) Aspartate Amino Transf (AST/SGOT) 21 U/L (15-37) Alanine Aminotransferase (ALT/SGPT) 19 U/L (12-78) Alkaline Phosphatase 120 U/L (46-116) H Total Creatine Kinase 79 U/L (26-308) Creatine Kinase MB 1.9 NG/ML (0.0-3.6) Creatine Kinase MB Relative Index 2.4 Troponin I 0.007 ng/mL (0.000-0.056) Total Protein 8.6 G/DL (6.4-8.2) H Albumin 3.0 G/DL (3.4-5.0) L 2.6 G/DL (3.4-5.0) L Globulin 5.6 g/dL Albumin/Globulin Ratio 0.5 (1.0-2.7) L Differential Total Cells Counted 100 Neutrophils % (Manual) 64 % (45-75) Lymphocytes % (Manual) 14 % (20-45) L Monocytes % (Manual) 3 % (1-10) Eosinophils % (Manual) 19 % (0-3) H Basophils % (Manual) 0 % (0-2) Band Neutrophils 0 % (0-8) Platelet Estimate Adequate Platelet Morphology Normal Phosphorus Level 2.8 MG/DL (2.5-4.9) MIKAYLA WILLOUGHBY Oct 17, 2017 10:12
--- NOTE | 2017-10-17 13:36 | GI Initial Consult Note ---
Esperanza Quesadah Jim N.PKathie 10/17/17 1336: History of Present Illness General Date patient seen: Oct 17, 2017 Time patient seen: 13:35 Reason for Hospitalization: Abnormal Labs Referring physician: MIKAYLA BANG Reason for Consultation: UGIB Present Illness HPI GI consulted for anemia. Patient is know to me from multiple prior admissions for anemia, reports of coffee ground emesis and multiple EGDs in the past. Patient with history of severe esophagitis presents today with anemia low Hgb of 7.7 and mild leukocytosis. GT dependent with extreme dysphagia. ROS limited , patient trach to [facility]. Home Meds Active Scripts Ertapenem (Invanz) 1 Gm Vial, 1 GM IM DAILY for 3 Days, VIAL Prov:RRABI,MIRALI 07/07/17 Tigecycline (TYGACIL) 50 Mg Vial, 50 MG IVPB EVERY 12 HOURS for 3 Days, VIAL Prov:ZARRABI,MIRALI 07/07/17 Tigecycline (TYGACIL) 50 Mg Vial, 50 MG IVPB EVERY 12 HOURS for 10 Days, VIAL Prov:ZARRABI,MIRALI 06/07/17 Colistimethate Sodium (Colistin) 150 Mg Vial, 150 MG INH Q12HR@10,22 for 10 Days , #10 VIAL Prov:RRABI,MIRALI 06/07/17 Meropenem (Merrem) 1 Gm Vial, 1 GM IV EVERY 8 HOURS for 30 Days, VIAL Prov:ZARRABI,MIRALI 06/07/17 Meropenem-0.9% Sodium Chloride (Meropenem-0.9% NaCl 1 Gram/50) 1 Gm/50 Ml Piggyback, 1 GM IV EVERY 8 HOURS for 10 Days, BAG Prov:ZARRABI,MIRALI 04/27/17 Colistimethate Sodium (Colistin) 150 Mg Vial, 75 MG INH Q12HR@10,22 for 10 Days , VIAL Prov:SUSANRRABI,MIRALI 04/27/17 Vtxlsctqhzra-Stdn-Pysqddik,Iso (ZOSYN 3.375 GM PRE MIX-BAG) 3.375 Gm/50 Ml Froz.piggy, 3.375 GM IVPB EVERY 8 HOURS for 2 Days, BAG Prov:SUSANRRMEENA,MIRALI 04/06/17 Amlodipine Besylate (Norvasc) 2.5 Mg Tab, 2.5 MG ORAL DAILY, #30 TAB Prov:Jose (Sher),Amina GENERAL SURGERY PHYSICIAN ASSISTANT 01/24/16 Ipratropium/Albuterol Sulfate (DuoNeb 0.5-3(2.5)mg/3ml) 3 Ml Ampul.neb, 3 ML HHN Q4H Y for Shortness of Breath, #20 EA Prov:Jose (Sher),Amina GENERAL SURGERY PHYSICIAN ASSISTANT 12/25/15 Reported Medications Na Phos,M-B/Na Phos,Di-Ba* (FLEET ENEMA*) 133 Ml Enema, 133 ML RECTAL QOD Y for Constipation 10/16/17 Nitrofurantoin Macrocrystal (NITROFURANTOIN) 100 Mg Capsule, 100 MG PO BID for 7 Days 10/16/17 Bisacodyl (DULCOLAX) 10 Mg Supp.rect, 10 MG RC NEEDED Y for Constipation, SUPP 06/01/17 Magnesium Hydroxide* (MILK OF MAGNESIA*) 400 Mg/5 Ml Oral.susp, 30 ML GT HS for Constipation, ML 06/01/17 [triamcinolone cream] No Conflict Check, 0.1 % TOPIC BID 06/01/17 Vancomycin Hcl/D5w (VANCOMYCIN-D5W 1 G/250 ML) 1 Gm/250 Ml Plast..bag, 750 GM IVPB Q12HR, BAG 06/01/17 Trimethoprim/Sulfamethoxazole 160/800* (BACTRIM DS TABLET*) 1 Each Tablet, 1 TAB GT BID for 7 Days, TAB 06/01/17 Cran/Vitc/Mannose/Inulin/Brom (UTI-STAT LIQUID) 3,875 Mg/30 Ml Liquid, 3875 MG PO, ML 04/14/17 Docusate Sodium* (DOCUSATE SODIUM*) 100 Mg Capsule, 100 MG GT TWICE A DAY, CAP 04/14/17 Protein Supplement (PROMOD) 946 Ml Liquid, 30 ML GT DAILY, ML 04/14/17 Zinc Sulfate (ZINC SULFATE*) 220 Mg Capsule, 220 MG ORAL DAILY, CAP 0 Refills 04/14/17 Ascorbic Acid* (VITAMIN C*) 500 Mg Tablet, 500 MG GT DAILY, #30 TAB 0 Refills 04/14/17 Multivitamin Liquid* (MULTI-DELYN*) 237 Ml Liquid, 15 ML GT DAILY, ML 04/14/17 Ferrous Sulfate (Ferrous Sulfate) 300 Mg/5 Ml Liquid, 7.5 ML NG TWICE A DAY, # 473 ML 0 Refills 04/14/17 Sucralfate* (CARAFATE*) 1 Gm Tablet, 1 GM GT FOUR TIMES A DAY, TAB 03/03/16 Acetaminophen (Acetaminophen) 650 Mg/20.3 Ml Soln, 640 MG GT Q4HR Y for Prn Headache/Temp > 101, ML 0 Refills 01/19/16 Folic Acid* (FOLIC ACID*) 1 Mg Tablet, 1 MG GT DAILY, TAB 09/10/14 Famotidine (FAMOTIDINE) 20 Mg Tablet, 20 MG GT DAILY, #60 TAB 0 Refills 09/10/14 Levothyroxine Sodium* (LEVOTHYROXINE SODIUM*) 50 Mcg Tablet, 50 MCG GT DAILY, TAB Take in the morning on an empty stomach, at least 30 minutes before food. 09/10/14 Med list reviewed/reconciled: Yes Allergies: Coded Allergies: NO KNOWN DRUG ALLERGIES (Verified Allergy, Unknown, 09/11/16) Patient History Limited by: medical condition History Provided By: Medical Record PMH Narrative Hx Cardiac Problems: Yes Hx Hypertension: Yes Hx Asthma: Yes Hx COPD: No Hx Diabetes: Yes Hx Cancer: No Hx Gastrointestinal Problems: Yes Hx Dialysis: Yes - pre renal azotemia, uti Hx Neurological Problems: Yes Hx Cerebrovascular Accident: Yes Hx Transient Ischemic Attacks: Yes Hx Dementia: Yes Hx Alzheimer's Disease: Yes Hx Parkinson's Disease: Yes Hx Encephalitis: Yes Hx Seizures: Yes Hx Epilepsy: Yes Hx Paralysis: Yes - HEMIPLEGIA Hx Concentration Difficulty: Yes Hx Speech Problem: Yes Hx Aphasia: Yes Hx Weakness: Yes Hx Fatigue: Yes Hx Neurologic Surgery: No Hx Brain Shunt: No Review of Systems All Other Systems: limited Physical Exam Vital Signs Date Time Temp Pulse Resp B/P (MAP) Pulse Ox O2 Delivery O2 Flow Rate FiO2 10/16/17 12:00 84 16 40 10/16/17 12:20 100/63 100 Mechanical Ventilator 10/16/17 18:30 97.3 Sp02 EP Interpretation: reviewed, normal Labs Laboratory Tests Test 10/16/17 15:30 10/17/17 04:30 White Blood Count 12.7 K/UL (4.8-10.8) H 12.2 K/UL (4.8-10.8) H Red Blood Count 3.28 M/UL (4.70-6.10) L 2.89 M/UL (4.70-6.10) L Hemoglobin 8.7 G/DL (14.2-18.0) L 7.7 G/DL (14.2-18.0) L Hematocrit 27.1 % (42.0-52.0) L 24.0 % (42.0-52.0) L Mean Corpuscular Volume 83 FL (80-99) 83 FL (80-99) Mean Corpuscular Hemoglobin 26.4 PG (27.0-31.0) L 26.8 PG (27.0-31.0) L Mean Corpuscular Hemoglobin Concent 31.9 G/DL (32.0-36.0) L 32.2 G/DL (32.0-36.0) Red Cell Distribution Width 15.2 % (11.6-14.8) H 15.3 % (11.6-14.8) H Platelet Count 454 K/UL (150-450) H 385 K/UL (150-450) Mean Platelet Volume 7.0 FL (6.5-10.1) 6.9 FL (6.5-10.1) Neutrophils (%) (Auto) 61.8 % (45.0-75.0) % (45.0-75.0) Lymphocytes (%) (Auto) 19.7 % (20.0-45.0) L % (20.0-45.0) Monocytes (%) (Auto) 5.9 % (1.0-10.0) % (1.0-10.0) Eosinophils (%) (Auto) 11.9 % (0.0-3.0) H % (0.0-3.0) Basophils (%) (Auto) 0.7 % (0.0-2.0) % (0.0-2.0) Sodium Level 131 MMOL/L (136-145) L 134 MMOL/L (136-145) L Potassium Level 4.0 MMOL/L (3.5-5.1) 4.2 MMOL/L (3.5-5.1) Chloride Level 97 MMOL/L (98-107) L 104 MMOL/L (98-107) Carbon Dioxide Level 23 MMOL/L (21-32) 21 MMOL/L (21-32) Anion Gap 11 mmol/L (5-15) 9 mmol/L (5-15) Blood Urea Nitrogen 25 mg/dL (7-18) H 16 mg/dL (7-18) Creatinine 1.5 MG/DL (0.55-1.30) H 1.3 MG/DL (0.55-1.30) Estimat Glomerular Filtration Rate 46.4 mL/min (>60) 54.7 mL/min (>60) Glucose Level 111 MG/DL (74-106) H 101 MG/DL (74-106) Lactic Acid Level 0.50 mmol/L (0.66-2.22) L Calcium Level 9.6 MG/DL (8.5-10.1) 8.7 MG/DL (8.5-10.1) Total Bilirubin 0.2 MG/DL (0.2-1.0) Aspartate Amino Transf (AST/SGOT) 21 U/L (15-37) Alanine Aminotransferase (ALT/SGPT) 19 U/L (12-78) Alkaline Phosphatase 120 U/L (46-116) H Total Creatine Kinase 79 U/L (26-308) Creatine Kinase MB 1.9 NG/ML (0.0-3.6) Creatine Kinase MB Relative Index 2.4 Troponin I 0.007 ng/mL (0.000-0.056) Total Protein 8.6 G/DL (6.4-8.2) H Albumin 3.0 G/DL (3.4-5.0) L 2.6 G/DL (3.4-5.0) L Globulin 5.6 g/dL Albumin/Globulin Ratio 0.5 (1.0-2.7) L Differential Total Cells Counted 100 Neutrophils % (Manual) 64 % (45-75) Lymphocytes % (Manual) 14 % (20-45) L Monocytes % (Manual) 3 % (1-10) Eosinophils % (Manual) 19 % (0-3) H Basophils % (Manual) 0 % (0-2) Band Neutrophils 0 % (0-8) Platelet Estimate Adequate Platelet Morphology Normal Phosphorus Level 2.8 MG/DL (2.5-4.9) General Appearance: no apparent distress Head: normocephalic EENT: PERRL/EOMI, normal ENT inspection Neck: supple Respiratory: no respiratory distress, other - trach to vent Cardiovascular: normal rate Gastrointestinal: normal inspection, non tender, soft, normal bowel sounds, non -distended, gt - c/d/i Rectal: deferred Genitourinary: deferred Musculoskeletal: normal inspection, back normal Skin: normal inspection, normal color, no rash, warm/dry, palpation normal, well hydrated Lymphatic: normal inspection, no adenopathy Current Medications Current Medications Medications (Trade) Dose Ordered Sig/Wanda Route PRN Reason Start Time Stop Time Status Last Admin Dose Admin Acetaminophen (Tylenol) 650 mg Q4H PRN ORAL FEVER (temp>100.5F) 10/16/17 19:30 11/15/17 19:29 Albuterol/ Ipratropium (Albuterol/ Ipratropium) 3 ml Q4H PRN HHN Shortness of Breath 10/16/17 19:30 10/21/17 19:29 Amlodipine Besylate (Norvasc) 2.5 mg DAILY ORAL 10/17/17 09:00 11/16/17 08:59 10/17/17 08:42 Dextrose (Dextrose 50%) STAT PRN IV Hypoglycemia 10/16/17 19:30 11/15/17 19:29 Levothyroxine Sodium (Synthroid) 50 mcg ACBREAKFAST GT 10/17/17 06:30 11/16/17 06:29 10/17/17 05:30 Lorazepam (Ativan 2mg/ml 1ml) 2 mg Q2H PRN IV For Anxiety 10/16/17 19:30 10/23/17 19:29 10/17/17 08:42 Morphine Sulfate (Morphine Sulfate) 4 mg Q4H PRN IVP Severe Pain (Pain Scale 7-10) 10/16/17 19:30 10/23/17 19:29 10/17/17 08:43 Ondansetron HCl (Zofran) 4 mg Q6H PRN IVP Nausea & Vomiting 10/16/17 19:30 11/15/17 19:29 Polyethylene Glycol (Miralax) 17 gm DAILYPRN PRN ORAL Constipation 10/16/17 19:30 11/15/17 19:29 Sodium Chloride 1,000 ml @ 75 mls/hr [id number] IV 10/16/17 21:00 11/15/17 20:59 10/17/17 11:11 Vancomycin HCl 1 gm/Dextrose 275 ml @ 183.3 mls/ hr Q24H IVPB 10/17/17 18:00 10/22/17 17:59 GI: Plan Problems: (1) Dementia (2) Alzheimer's dementia (3) Upper GI bleed (4) Esophagitis (5) Protein-calorie malnutrition, severe (6) Feeding by G-tube (7) Hypoalbuminemia Plan EGD scheduled for tomorrow. - NPO + IVFs - hold all blood thinners tonight. anemia work up OB stool r/o GI bleed monitor H&H, prn transfusions bowel regime ppi BID fu labs Discussed with Dr. Galan. Thank you for this patient referral, we will follow. UPDATED EGD cancelled >> Conservator will not sign consent unless life threatening. cont plan of care, will do trial GTFs tomorrow. FRAN GALAN 10/22/17 1510: History of Present Illness General Reason for Hospitalization: Abnormal Labs Present Illness Home Meds Active Scripts Ertapenem (Invanz) 1 Gm Vial, 1 GM IM DAILY for 3 Days, VIAL Prov:ZARRABI,MIRALI 07/07/17 Tigecycline (TYGACIL) 50 Mg Vial, 50 MG IVPB EVERY 12 HOURS for 3 Days, VIAL Prov:ZARRABI,MIRALI 07/07/17 Tigecycline (TYGACIL) 50 Mg Vial, 50 MG IVPB EVERY 12 HOURS for 10 Days, VIAL Prov:ZARRABI,MIRALI 06/07/17 Colistimethate Sodium (Colistin) 150 Mg Vial, 150 MG INH Q12HR@10,22 for 10 Days , #10 VIAL Prov:ZARRABI,MIRALI 06/07/17 Meropenem (Merrem) 1 Gm Vial, 1 GM IV EVERY 8 HOURS for 30 Days, VIAL Prov:ZARRABI,MIRALI 06/07/17 Meropenem-0.9% Sodium Chloride (Meropenem-0.9% NaCl 1 Gram/50) 1 Gm/50 Ml Piggyback, 1 GM IV EVERY 8 HOURS for 10 Days, BAG Prov:ZARRABI,MIRALI 04/27/17 Colistimethate Sodium (Colistin) 150 Mg Vial, 75 MG INH Q12HR@,22 for 10 Days , VIAL Prov:JONO WILLOUGHBYALI 04/27/17 Fkzcrntoakuu-Omis-Dcrqhufj,Iso (ZOSYN 3.375 GM PRE MIX-BAG) 3.375 Gm/50 Ml Froz.piggy, 3.375 GM IVPB EVERY 8 HOURS for 2 Days, BAG Prov:JONO WILLOUGHBYALI 04/06/17 Amlodipine Besylate (Norvasc) 2.5 Mg Tab, 2.5 MG ORAL DAILY, #30 TAB Prov:Jose Pa)Amina GENERAL SURGERY PHYSICIAN ASSISTANT 01/24/16 Ipratropium/Albuterol Sulfate (DuoNeb 0.5-3(2.5)mg/3ml) 3 Ml Ampul.neb, 3 ML HHN Q4H Y for Shortness of Breath, #20 EA Prov:Amina Garcia NP (Vanchtein) 12/25/15 Reported Medications Na Phos,M-B/Na Phos,Di-Ba* (FLEET ENEMA*) 133 Ml Enema, 133 ML RECTAL QOD Y for Constipation 10/16/17 Nitrofurantoin Macrocrystal (NITROFURANTOIN) 100 Mg Capsule, 100 MG PO BID for 7 Days 10/16/17 Bisacodyl (DULCOLAX) 10 Mg Supp.rect, 10 MG RC NEEDED Y for Constipation, SUPP 06/01/17 Magnesium Hydroxide* (MILK OF MAGNESIA*) 400 Mg/5 Ml Oral.susp, 30 ML GT HS for Constipation, ML 06/01/17 [triamcinolone cream] No Conflict Check, 0.1 % TOPIC BID 06/01/17 Vancomycin Hcl/D5w (VANCOMYCIN-D5W 1 G/250 ML) 1 Gm/250 Ml Plast..bag, 750 GM IVPB Q12HR, BAG 06/01/17 Trimethoprim/Sulfamethoxazole 160/800* (BACTRIM DS TABLET*) 1 Each Tablet, 1 TAB GT BID for 7 Days, TAB 06/01/17 Cran/Vitc/Mannose/Inulin/Brom (UTI-STAT LIQUID) 3,875 Mg/30 Ml Liquid, 3875 MG PO, ML 04/14/17 Docusate Sodium* (DOCUSATE SODIUM*) 100 Mg Capsule, 100 MG GT TWICE A DAY, CAP 04/14/17 Protein Supplement (PROMOD) 946 Ml Liquid, 30 ML GT DAILY, ML 04/14/17 Zinc Sulfate (ZINC SULFATE*) 220 Mg Capsule, 220 MG ORAL DAILY, CAP 0 Refills 04/14/17 Ascorbic Acid* (VITAMIN C*) 500 Mg Tablet, 500 MG GT DAILY, #30 TAB 0 Refills 04/14/17 Multivitamin Liquid* (MULTI-DELYN*) 237 Ml Liquid, 15 ML GT DAILY, ML 04/14/17 Ferrous Sulfate (Ferrous Sulfate) 300 Mg/5 Ml Liquid, 7.5 ML NG TWICE A DAY, # 473 ML 0 Refills 04/14/17 Sucralfate* (CARAFATE*) 1 Gm Tablet, 1 GM GT FOUR TIMES A DAY, TAB 03/03/16 Acetaminophen (Acetaminophen) 650 Mg/20.3 Ml Soln, 640 MG GT Q4HR Y for Prn Headache/Temp > 101, ML 0 Refills 01/19/16 Folic Acid* (FOLIC ACID*) 1 Mg Tablet, 1 MG GT DAILY, TAB 09/10/14 Famotidine (FAMOTIDINE) 20 Mg Tablet, 20 MG GT DAILY, #60 TAB 0 Refills 09/10/14 Levothyroxine Sodium* (LEVOTHYROXINE SODIUM*) 50 Mcg Tablet, 50 MCG GT DAILY, TAB Take in the morning on an empty stomach, at least 30 minutes before food. 09/10/14 Allergies: Coded Allergies: NO KNOWN DRUG ALLERGIES (Verified Allergy, Unknown, 09/11/16) GI: Plan Plan The patient was seen and examined at bedside and all new and available data was reviewed in the patients chart. I agree with the above findings, impression and plan. (Patient seen earlier today. Signature stamp does not reflect patient encounter time.). - MD Sangita Avila Anh Jim Butler Oct 17, 2017 13:36 FRAN GALAN Oct 22, 2017 15:10
--- NOTE | 2017-10-17 17:16 | Cardiology Report ---
APPROVED REPORT EKG Measurement Heart [id number] Normal sinus rhythm Normal ECG
[2017-10-17] MEDS ORDERED: Vancomycin 1 GM in D5W 275 ML IVPB SCH ×4 (18:00)
--- NOTE | 2017-10-17 18:09 | Consultation ---
History of Present Illness General Date patient seen: Oct 17, 2017 Time patient seen: 18:06 Chief Complaint: Abnormal Labs Referring physician: MIKAYLA BANG Reason for Consultation: UGIB Present Illness HPI 67 y/o M with hx of anemia, UGIB s/p multiple EGDs in the past, hx of severe esophagitis, chronic vent/trach, s/p peg, bed bound, malnutrition, SNF resident presents to ED on 10/16 with coffee ground emesis. In ED noted to be anemic (HgB 7.7), leukocytosis to 12.2 afebrile. CXR with no PNA. +Rash on admission Allergies: Coded Allergies: NO KNOWN DRUG ALLERGIES (Verified Allergy, Unknown, 09/11/16) Medication History Scheduled Amlodipine Besylate (Norvasc), 2.5 MG ORAL DAILY Ascorbic Acid* (Vitamin C*), 500 MG GT DAILY, (Reported) Colistimethate Sodium (Colistin), 75 MG INH Q12HR@10,22 Colistimethate Sodium (Colistin), 150 MG INH Q12HR@10,22 Docusate Sodium* (Docusate Sodium*), 100 MG GT TWICE A DAY, (Reported) Ertapenem (Invanz), 1 GM IM DAILY Famotidine (Famotidine), 20 MG GT DAILY, (Reported) Ferrous Sulfate (Ferrous Sulfate), 7.5 ML NG TWICE A DAY, (Reported) Folic Acid* (Folic Acid*), 1 MG GT DAILY, (Reported) Levothyroxine Sodium* (Levothyroxine Sodium*), 50 MCG GT DAILY, (Reported) Magnesium Hydroxide* (Milk Of Magnesia*), 30 ML GT HS, (Reported) Meropenem (Merrem), 1 GM IV EVERY 8 HOURS Meropenem-0.9% Sodium Chloride (Meropenem-0.9% NaCl 1 Gram/50), 1 GM IV EVERY 8 HOURS Multivitamin Liquid* (Multi-Delyn*), 15 ML GT DAILY, (Reported) Nitrofurantoin Macrocrystal (Nitrofurantoin), 100 MG PO BID, (Reported) Hdoywkbzctgl-Wttw-Dxsrvgfu,Iso (Zosyn 3.375 Gm Pre Mix-Bag), 3.375 GM IVPB EVERY 8 HOURS Protein Supplement (Promod), 30 ML GT DAILY, (Reported) Sucralfate* (Carafate*), 1 GM GT FOUR TIMES A DAY, (Reported) Tigecycline (Tygacil), 50 MG IVPB EVERY 12 HOURS Tigecycline (Tygacil), 50 MG IVPB EVERY 12 HOURS Trimethoprim/Sulfamethoxazole 160/800* (Bactrim Ds Tablet*), 1 TAB GT BID, ( Reported) Vancomycin Hcl/D5w (Vancomycin-D5w 1 G/250 Ml), 750 GM IVPB Q12HR, (Reported) Zinc Sulfate (Zinc Sulfate*), 220 MG ORAL DAILY, (Reported) [triamcinolone cream], 0.1 % TOPIC BID, (Reported) Scheduled PRN Acetaminophen (Acetaminophen), 640 MG GT Q4HR PRN for Prn Headache/Temp > 101, ( Reported) Bisacodyl (Dulcolax), 10 MG RC NEEDED PRN for Constipation, (Reported) Ipratropium/Albuterol Sulfate (DuoNeb 0.5-3(2.5)mg/3ml), 3 ML HHN Q4H PRN for Shortness of Breath Na Phos,M-B/Na Phos,Di-Ba* (Fleet Enema*), 133 ML RECTAL QOD PRN for Constipation, (Reported) Miscellaneous Medications Cran/Vitc/Mannose/Inulin/Brom (Uti-Stat Liquid), 3,875 MG PO, (Reported) Patient History Healthcare decision maker N Resuscitation status Full Code Advanced Directive on File Patient History Narrative Pmhx: as above SHx: reviewed Fhx: non contributory Review of Systems ROS Narrative unable to obtain Physical Exam Physical Exam Narrative HEENT: atraumatic Neck: full ROM Lungs: clear Heart: HR/BP stable, HR/BP unstable Abdomen: active bowel sounds, feeding tube Extremities: edema Skin:diffuse maculopapular/pustular rash with burrows specially on hands, interdigit spaces, chest Last 24 Hour Vital Signs Date Time Temp Pulse Resp B/P (MAP) Pulse Ox O2 Delivery O2 Flow Rate FiO2 10/17/17 17:00 82 16 30 10/17/17 16:00 30 10/17/17 16:00 98.1 10/17/17 15:21 85 16 30 10/17/17 12:50 78 16 30 2/7/18 12:00 30 10/17/17 11:47 70 10/17/17 11:30 76 16 30 10/17/17 09:18 75 16 30 10/17/17 09:03 69 10/17/17 08:42 81 132/81 10/17/17 08:00 30 10/17/17 07:05 81 20 30 10/17/17 05:24 88 21 30 10/17/17 04:00 30 10/17/17 04:00 98.2 92 26 142/82 100 Mechanical Ventilator 30 10/17/17 04:00 76 10/17/17 02:49 91 22 30 10/17/17 01:14 86 22 30 10/17/17 00:00 100 10/17/17 00:00 30 10/17/17 00:00 98.1 92 24 136/88 100 Mechanical Ventilator 30 10/16/17 23:57 93 20 30 10/16/17 23:01 90 19 30 10/16/17 22:00 98.1 89 20 118/85 100 Mechanical Ventilator 30 10/16/17 22:00 30 10/16/17 21:53 30 10/16/17 21:30 97.3 90 22 150/91 100 Mechanical Ventilator 30 10/16/17 20:46 90 22 150/91 100 Mechanical Ventilator 30 10/16/17 19:18 89 22 30 10/16/17 18:30 97.3 90 16 128/59 100 Mechanical Ventilator 40 Intake and Output 10/16/17 10/17/17 19:00 07:00 Intake Total 55 ml 730 ml Balance 55 ml 730 ml Intake Oral 0 ml IV Total 55 ml 730 ml # Voids 2 # Bowel Movements 3 Laboratory Tests Test 10/17/17 04:30 White Blood Count 12.2 K/UL (4.8-10.8) H Red Blood Count 2.89 M/UL (4.70-6.10) L Hemoglobin 7.7 G/DL (14.2-18.0) L Hematocrit 24.0 % (42.0-52.0) L Mean Corpuscular Volume 83 FL (80-99) Mean Corpuscular Hemoglobin 26.8 PG (27.0-31.0) L Mean Corpuscular Hemoglobin Concent 32.2 G/DL (32.0-36.0) Red Cell Distribution Width 15.3 % (11.6-14.8) H Platelet Count 385 K/UL (150-450) Mean Platelet Volume 6.9 FL (6.5-10.1) Neutrophils (%) (Auto) % (45.0-75.0) Lymphocytes (%) (Auto) % (20.0-45.0) Monocytes (%) (Auto) % (1.0-10.0) Eosinophils (%) (Auto) % (0.0-3.0) Basophils (%) (Auto) % (0.0-2.0) Differential Total Cells Counted 100 Neutrophils % (Manual) 64 % (45-75) Lymphocytes % (Manual) 14 % (20-45) L Monocytes % (Manual) 3 % (1-10) Eosinophils % (Manual) 19 % (0-3) H Basophils % (Manual) 0 % (0-2) Band Neutrophils 0 % (0-8) Platelet Estimate Adequate Platelet Morphology Normal Sodium Level 134 MMOL/L (136-145) L Potassium Level 4.2 MMOL/L (3.5-5.1) Chloride Level 104 MMOL/L (98-107) Carbon Dioxide Level 21 MMOL/L (21-32) Anion Gap 9 mmol/L (5-15) Blood Urea Nitrogen 16 mg/dL (7-18) Creatinine 1.3 MG/DL (0.55-1.30) Estimat Glomerular Filtration Rate 54.7 mL/min (>60) Glucose Level 101 MG/DL (74-106) Calcium Level 8.7 MG/DL (8.5-10.1) Phosphorus Level 2.8 MG/DL (2.5-4.9) Albumin 2.6 G/DL (3.4-5.0) L Microbiology Date/Time Source Procedure Growth Status 10/16/17 19:30 Nasal Nares Influenza Types A,B Antigen (RYDER) - Final Complete Height (Feet): 5 Height (Inches): 10.00 Weight (Pounds): 126 Medications Current Medications Medications (Trade) Dose Ordered Sig/Wanda Route PRN Reason Start Time Stop Time Status Last Admin Dose Admin Acetaminophen (Tylenol) 650 mg Q4H PRN ORAL FEVER (temp>100.5F) 10/16/17 19:30 11/15/17 19:29 Albuterol/ Ipratropium (Albuterol/ Ipratropium) 3 ml Q4H PRN HHN Shortness of Breath 10/16/17 19:30 10/21/17 19:29 Amlodipine Besylate (Norvasc) 2.5 mg DAILY ORAL 10/17/17 09:00 11/16/17 08:59 10/17/17 08:42 Dextrose (Dextrose 50%) STAT PRN IV Hypoglycemia 10/16/17 19:30 11/15/17 19:29 Levothyroxine Sodium (Synthroid) 50 mcg ACBREAKFAST GT 10/17/17 06:30 11/16/17 06:29 10/17/17 05:30 Lorazepam (Ativan 2mg/ml 1ml) 2 mg Q2H PRN IV For Anxiety 10/16/17 19:30 10/23/17 19:29 10/17/17 16:01 Morphine Sulfate (Morphine Sulfate) 4 mg Q4H PRN IVP Severe Pain (Pain Scale 7-10) 10/16/17 19:30 10/23/17 19:29 10/17/17 16:02 Ondansetron HCl (Zofran) 4 mg Q6H PRN IVP Nausea & Vomiting 10/16/17 19:30 11/15/17 19:29 Pantoprazole (Protonix) 40 mg EVERY 12 HOURS IVP 10/17/17 21:00 11/16/17 20:59 Polyethylene Glycol (Miralax) 17 gm DAILYPRN PRN ORAL Constipation 10/16/17 19:30 11/15/17 19:29 Sodium Chloride 1,000 ml @ 75 mls/hr [id number] IV 10/16/17 21:00 11/15/17 20:59 10/17/17 11:11 Vancomycin HCl 1 gm/Dextrose 275 ml @ 183.3 mls/ hr Q24H IVPB 10/17/17 18:00 10/22/17 17:59 Assessment/Plan Assessment/Plan Abx: IV Vanco/cefepime 10/16- Assessment: UGIB -hx of UGIB, severe esophagitis s/p multiple EGDs Leukocytosis, mild- suspect reactive -CXR: No acute process -influenza neg Rash-suspicious for Scabies Acute on chronic anemia chronic vent/trach s/p peg bed bound malnutrition SNF resident Plan: -D/c IV Vanco and Cefepime and monitor off abx -Permethrin cream and ivermectin x1 -contact precautions -f/u cx -Monitor CBC/BMP, temperatures -ETT/Trach care -EGD tomorrow Thank you for this consultation. Will continue to follow along with you. Discussed with Lisy Lindo M.D. Oct 17, 2017 18:09
[2017-10-17 20:00] VITALS: BP 138/92
[2017-10-17] MEDS: Pantoprazole Inj IVP SCH (20:41)
--- NOTE | 2017-10-17 22:27 | Wound Care Consultation ---
Wound Assessment Wound Assessment : Wound Number: 1 Wound Present on Admission: Yes New Wound: No Status Change of Wound: No Wound Location Body Site: other - generalized rashes Wound Type: rash Meño Test: Does not Meño Percent of Wound [place]/Red: 100 Wound Drainage Amount: None Wound Drainage Odor: None/Absent Tissue Surrounding Wound: Intact Wound General Appearance: Reddened Wound Comment #1 Generalized rashes Recommendation -Contact MD for dermatology consult -Local wound care as ordered by MD -Keep clean and dry -Turn and reposition -Offload both heels -Heel protector on both heels -Optimize nutrition -Assess and f/u accordingly for any changes BAO FORTUNE RN Oct 17, 2017 22:27
[2017-10-18] VITALS: BP 139/83
[2017-10-18] MEDS: Morphine Sulfate 4mg/ml Inj IVP PRN ×2 (01:45→14:54)
[2017-10-18 04:00] VITALS: BP 136/76
[2017-10-18 08:00] VITALS: BP 121/75
[2017-10-18] MEDS: Pantoprazole Inj IVP SCH ×2 (08:08→20:31)
[2017-10-18] MEDS: Sucralfate 1gm tab ORAL SCH ×4 (09:33→20:31)
[2017-10-18 10:43] LABS: BASOPHILS % (AUTO) 0.6 % (0.0-2.0); EOSINOPHILS % (AUTO) 18.1 % (0.0-3.0); HEMATOCRIT 28.7 % (42.0-52.0); HEMOGLOBIN 9.3 G/DL (14.2-18.0); LYMPHOCYTES % (AUTO) 16.6 % (20.0-45.0); MEAN CORPUSCULAR VOLUME 84 FL (80-99); MONOCYTES % (AUTO) 8.7 % (1.0-10.0); NEUTROPHILS % (AUTO) 56.1 % (45.0-75.0); PLATELET COUNT 346 K/UL (150-450); RED BLOOD COUNT 3.43 M/UL (4.70-6.10); RED CELL DISTRIBUTION WIDTH 15.8 % (11.6-14.8); WHITE BLOOD COUNT 9.9 K/UL (4.8-10.8)
[2017-10-18 11:00] LABS: ALANINE AMINOTRANSFERASE 18 U/L (12-78); ALBUMIN 2.6 G/DL (3.4-5.0); ALBUMIN/GLOBULIN RATIO 0.5 (1.0-2.7); ALKALINE PHOSPHATASE 103 U/L (46-116); ANION GAP 10 mmol/L (5-15); ASPARTATE AMINO TRANSFERASE 20 U/L (15-37); BILIRUBIN,TOTAL 0.3 MG/DL (0.2-1.0); BLOOD UREA NITROGEN 15 mg/dL (7-18); CARBON DIOXIDE 20 MMOL/L (21-32); CHLORIDE 104 MMOL/L (98-107); CREATININE 1.2 MG/DL (0.55-1.30); POTASSIUM 4.4 MMOL/L (3.5-5.1); SODIUM 134 MMOL/L (136-145)
[2017-10-18 12:00] VITALS: BP 144/103
--- NOTE | 2017-10-18 13:24 | GI Progress Note ---
Assessment/Plan Problems: (1) Dementia ICD Codes: F03.90 - Dementia SNOMED: 71268944 (2) Upper respiratory infection ICD Codes: J06.9 - Acute upper respiratory infection, unspecified SNOMED: 42682943 (3) Protein-calorie malnutrition, severe ICD Codes: E43 - Unspecified severe protein-calorie malnutrition SNOMED: 179238871 (4) Feeding by G-tube ICD Codes: Z93.1 - Gastrostomy status SNOMED: 841358109, 909395305 (5) Hypoalbuminemia ICD Codes: E88.09 - Other disorders of plasma-protein metabolism, not elsewhere classified SNOMED: 133399749 (6) Alzheimer's dementia ICD Codes: G30.9 - Alzheimer's disease, unspecified SNOMED: 48043833 (7) Upper GI bleed ICD Codes: K92.2 - Upper gastrointestinal hemorrhage SNOMED: 65575488 (8) Anemia ICD Codes: D64.9 - Anemia SNOMED: 340665346 (9) Iron deficiency ICD Codes: E61.1 - Iron deficiency SNOMED: 39779633 (10) Esophagitis ICD Codes: K20.9 - Esophagitis SNOMED: 46645912 Status: stable Status Narrative Discussed with Dr. Wilson. Assessment/Plan EGD deferred >> conservator will only consent if case emergent GT pulled out by patient, changed @ bedside today start GTFs per RD today OB stool r/o GI bleed monitor H&H, prn transfusions bowel regime ppi BID + carafate fu labs Subjective Subjective limited Objective Last 24 Hour Vital Signs Date Time Temp Pulse Resp B/P (MAP) Pulse Ox O2 Delivery O2 Flow Rate FiO2 10/18/17 12:58 88 16 30 10/18/17 12:00 30 10/18/17 11:42 96 10/18/17 10:56 93 18 30 10/18/17 08:59 91 16 30 10/18/17 08:09 100 121/75 10/18/17 08:00 30 10/18/17 08:00 109 10/18/17 08:00 97.5 100 18 121/75 100 Mechanical Ventilator 30 10/18/17 06:36 134 16 30 10/18/17 05:51 87 17 30 10/18/17 04:00 30 10/18/17 04:00 87 10/18/17 04:00 97.3 100 17 136/76 98 Mechanical Ventilator 30 10/18/17 02:15 97.1 10/18/17 02:10 84 18 30 10/18/17 00:00 97.1 72 22 139/83 100 Mechanical Ventilator 30 10/18/17 00:00 100 10/18/17 00:00 30 10/17/17 23:58 86 18 30 10/17/17 21:51 80 16 30 10/17/17 20:00 30 10/17/17 20:00 97.0 80 18 138/92 100 Mechanical Ventilator 30 10/17/17 19:04 84 18 30 10/17/17 17:00 82 16 30 10/17/17 16:00 30 10/17/17 16:00 77 10/17/17 15:21 85 16 30 Intake and Output 10/17/17 10/18/17 19:00 07:00 Intake Total 825 ml 862.5 ml Output Total 500 ml 375 ml Balance 325 ml 487.5 ml IV Total 825 ml 862.5 ml Output Urine Total 500 ml 375 ml # Voids 2 # Bowel Movements 3 3 Laboratory Tests Test 10/18/17 10:20 White Blood Count 9.9 K/UL (4.8-10.8) Red Blood Count 3.43 M/UL (4.70-6.10) L Hemoglobin 9.3 G/DL (14.2-18.0) L Hematocrit 28.7 % (42.0-52.0) L Mean Corpuscular Volume 84 FL (80-99) Mean Corpuscular Hemoglobin 27.1 PG (27.0-31.0) Mean Corpuscular Hemoglobin Concent 32.4 G/DL (32.0-36.0) Red Cell Distribution Width 15.8 % (11.6-14.8) H Platelet Count 346 K/UL (150-450) Mean Platelet Volume 6.9 FL (6.5-10.1) Neutrophils (%) (Auto) 56.1 % (45.0-75.0) Lymphocytes (%) (Auto) 16.6 % (20.0-45.0) L Monocytes (%) (Auto) 8.7 % (1.0-10.0) Eosinophils (%) (Auto) 18.1 % (0.0-3.0) H Basophils (%) (Auto) 0.6 % (0.0-2.0) Prothrombin Time 10.9 SEC (9.30-11.50) Prothromb Time International Ratio 1.0 (0.9-1.1) Activated Partial Thromboplast Time 32 SEC (23-33) Sodium Level 134 MMOL/L (136-145) L Potassium Level 4.4 MMOL/L (3.5-5.1) Chloride Level 104 MMOL/L (98-107) Carbon Dioxide Level 20 MMOL/L (21-32) L Anion Gap 10 mmol/L (5-15) Blood Urea Nitrogen 15 mg/dL (7-18) Creatinine 1.2 MG/DL (0.55-1.30) Estimat Glomerular Filtration Rate > 60 mL/min (>60) Glucose Level 85 MG/DL (74-106) Calcium Level 9.0 MG/DL (8.5-10.1) Phosphorus Level 3.0 MG/DL (2.5-4.9) Magnesium Level 1.8 MG/DL (1.8-2.4) Total Bilirubin 0.3 MG/DL (0.2-1.0) Aspartate Amino Transf (AST/SGOT) 20 U/L (15-37) Alanine Aminotransferase (ALT/SGPT) 18 U/L (12-78) Alkaline Phosphatase 103 U/L (46-116) Total Protein 7.6 G/DL (6.4-8.2) Albumin 2.6 G/DL (3.4-5.0) L Globulin 5.0 g/dL Albumin/Globulin Ratio 0.5 (1.0-2.7) L Height (Feet): 5 Height (Inches): 10.00 Weight (Pounds): 126 General Appearance: alert Cardiovascular: normal rate Respiratory/Chest: other - mech vent Abdominal Exam: GT site - changed Arabella Quesada N.P. Oct 18, 2017 13:24
--- NOTE | 2017-10-18 13:37 | Pulmonolgy Critical Care Note ---
Critical Care - Asmt/Plan Problems: (1) Acute on chronic respiratory failure (2) Upper GI bleed (3) Sepsis (4) Alzheimer's dementia Respiratory: monitor respiratory rate, adjust FIO2 Cardiac: continue to monitor HR/BP Renal: F/U I&O, keep IV fluid Infectious Disease: continue antibiotics Gastrointestinal: continue feedings/current rate Endocrine: monitor blood sugar, check TSH Neurologic: PRN Ativan, PRN Morphine Notes Reviewed: occupational therapy technician Discussed with: consultants, rifle case repairer, family member Critical Care - Objective Last 24 Hour Vital Signs Date Time Temp Pulse Resp B/P (MAP) Pulse Ox O2 Delivery O2 Flow Rate FiO2 10/18/17 12:58 88 16 30 10/18/17 12:00 30 10/18/17 11:42 96 10/18/17 10:56 93 18 30 10/18/17 08:59 91 16 30 10/18/17 08:09 100 121/75 10/18/17 08:00 30 10/18/17 08:00 109 10/18/17 08:00 97.5 100 18 121/75 100 Mechanical Ventilator 30 10/18/17 06:36 134 16 30 10/18/17 05:51 87 17 30 10/18/17 04:00 30 10/18/17 04:00 87 10/18/17 04:00 97.3 100 17 136/76 98 Mechanical Ventilator 30 10/18/17 02:15 97.1 10/18/17 02:10 84 18 30 10/18/17 00:00 97.1 72 22 139/83 100 Mechanical Ventilator 30 10/18/17 00:00 100 10/18/17 00:00 30 10/17/17 23:58 86 18 30 10/17/17 21:51 80 16 30 10/17/17 20:00 30 10/17/17 20:00 97.0 80 18 138/92 100 Mechanical Ventilator 30 10/17/17 19:04 84 18 30 10/17/17 17:00 82 16 30 10/17/17 16:00 30 10/17/17 16:00 77 10/17/17 15:21 85 16 30 Status: awake Condition: critical HEENT: atraumatic Lungs: clear Heart: HR/BP unstable, regular Abdomen: soft, active bowel sounds Extremities: no C/C/E Micro: Microbiology Date/Time Source Procedure Growth Status 10/16/17 15:45 Blood Blood Culture - Preliminary NO GROWTH AFTER 24 HOURS Resulted 10/16/17 15:30 Blood Blood Culture - Preliminary NO GROWTH AFTER 24 HOURS Resulted 10/16/17 20:30 Nasal Nares MRSA Culture - Final Staphylococcus Aureus - Mrsa Complete 10/16/17 19:30 Nasal Nares Influenza Types A,B Antigen (RYDER) - Final Complete Critical Care - Subjective ROS Limited/Unobtainable: Yes ICU Day: 2 Intubation Day: 2 Condition: critical EKG Rhythm: Sinus Rhythm FI02: 30 Vent Support Breath Rate: 16 Vent Support Mode: AC Vent Tidal Volume: 600 Sputum Amount: Moderate PEEP: 0.0 PIP: 25 Fluids: 1/2 NS at 75 cc/hour I&O: Intake and Output 10/17/17 10/18/17 19:00 07:00 Intake Total 825 ml 862.5 ml Output Total 500 ml 375 ml Balance 325 ml 487.5 ml IV Total 825 ml 862.5 ml Output Urine Total 500 ml 375 ml # Voids 2 # Bowel Movements 3 3 CXR: no change Labs: Laboratory Tests Test 10/18/17 10:20 White Blood Count 9.9 K/UL (4.8-10.8) Red Blood Count 3.43 M/UL (4.70-6.10) L Hemoglobin 9.3 G/DL (14.2-18.0) L Hematocrit 28.7 % (42.0-52.0) L Mean Corpuscular Volume 84 FL (80-99) Mean Corpuscular Hemoglobin 27.1 PG (27.0-31.0) Mean Corpuscular Hemoglobin Concent 32.4 G/DL (32.0-36.0) Red Cell Distribution Width 15.8 % (11.6-14.8) H Platelet Count 346 K/UL (150-450) Mean Platelet Volume 6.9 FL (6.5-10.1) Neutrophils (%) (Auto) 56.1 % (45.0-75.0) Lymphocytes (%) (Auto) 16.6 % (20.0-45.0) L Monocytes (%) (Auto) 8.7 % (1.0-10.0) Eosinophils (%) (Auto) 18.1 % (0.0-3.0) H Basophils (%) (Auto) 0.6 % (0.0-2.0) Prothrombin Time 10.9 SEC (9.30-11.50) Prothromb Time International Ratio 1.0 (0.9-1.1) Activated Partial Thromboplast Time 32 SEC (23-33) Sodium Level 134 MMOL/L (136-145) L Potassium Level 4.4 MMOL/L (3.5-5.1) Chloride Level 104 MMOL/L (98-107) Carbon Dioxide Level 20 MMOL/L (21-32) L Anion Gap 10 mmol/L (5-15) Blood Urea Nitrogen 15 mg/dL (7-18) Creatinine 1.2 MG/DL (0.55-1.30) Estimat Glomerular Filtration Rate > 60 mL/min (>60) Glucose Level 85 MG/DL (74-106) Calcium Level 9.0 MG/DL (8.5-10.1) Phosphorus Level 3.0 MG/DL (2.5-4.9) Magnesium Level 1.8 MG/DL (1.8-2.4) Total Bilirubin 0.3 MG/DL (0.2-1.0) Aspartate Amino Transf (AST/SGOT) 20 U/L (15-37) Alanine Aminotransferase (ALT/SGPT) 18 U/L (12-78) Alkaline Phosphatase 103 U/L (46-116) Total Protein 7.6 G/DL (6.4-8.2) Albumin 2.6 G/DL (3.4-5.0) L Globulin 5.0 g/dL Albumin/Globulin Ratio 0.5 (1.0-2.7) L MIKAYLA WILLOUGHBY Oct 18, 2017 13:36
--- NOTE | 2017-10-18 14:51 | Diagnostic Imaging Report ---
Indication: Gastrostomy tube placement Technique: XRAY Abdomen 1v Comparison: 10/17/2017 Findings: A gastrostomy tube is noted within the stomach. Injection via this tube demonstrates contrast opacification of the stomach. No evidence of extravasation. Bowel gas pattern is nonspecific with gaseous distention of some small bowel loops in the central abdomen. Size and number of dilated bowel loops appears similar compared to the prior exam. Impression: Gastrostomy tube tip in the stomach. Additional findings as above without significant interval change from the prior exam.
[2017-10-18 16:00] VITALS: BP 124/71
--- NOTE | 2017-10-18 16:07 | Diagnostic Imaging Report ---
Indication: Gastrostomy tube Technique: XRAY Abdomen 1v Comparison: 06/03/2017 Findings: Gastrostomy catheter projects over the expected region of the stomach. Injection views catheter shows contrast opacification of the stomach and proximal duodenum. No extravasation of contrast identified. There is nonspecific bowel gas pattern with gaseous distention of small bowel loops. There is prominent gaseous and fecal distention of the colon, particularly sigmoid. These findings were similarly seen on exam of 06/03/2017 and may potentially be chronic. Prominent colonic stool burden. Impression: Gastrostomy catheter within the stomach. Nonspecific bowel gas pattern with gaseous distention of predominantly large bowel loops with large amount of colonic stool burden. A similar appearance was noted on exam 06/03/2017 these findings may be chronic. Clinical correlation recommended. Further imaging with contrast-enhanced CT of the abdomen and pelvis recommended as clinically indicated.
[2017-10-18] MEDS ORDERED: 1/2 NS 1000ml IV ONE (19:30)
[2017-10-18] MEDS ORDERED: Tubing IV Secondary IV ONE (19:30)
[2017-10-18 20:00] VITALS: BP 133/65
[2017-10-18] MEDS: DiphenhydrAMINE 50mg/ml Inj IVP PRN (20:31)
[2017-10-18] MEDS: Dyna-Hex 2% Top Sol 2oz TOPIC SCH (20:31)
[2017-10-18] MEDS: LORazepam Inj 2mg/ml 1ml IV PRN (20:32)
[2017-10-19] VITALS: BP 120/60
[2017-10-19 04:00] VITALS: BP 145/86
[2017-10-19 05:56] LABS: BASOPHILS % (AUTO) 0.6 % (0.0-2.0); EOSINOPHILS % (AUTO) 18.7 % (0.0-3.0); HEMATOCRIT 25.2 % (42.0-52.0); LYMPHOCYTES % (AUTO) 14.2 % (20.0-45.0); MEAN CORPUSCULAR VOLUME 84 FL (80-99); MONOCYTES % (AUTO) 9.7 % (1.0-10.0); NEUTROPHILS % (AUTO) 56.7 % (45.0-75.0); PLATELET COUNT 389 K/UL (150-450); RED CELL DISTRIBUTION WIDTH 15.9 % (11.6-14.8); WHITE BLOOD COUNT 11.2 K/UL (4.8-10.8)
[2017-10-19 06:05] LABS: ANION GAP 13 mmol/L (5-15); BLOOD UREA NITROGEN 13 mg/dL (7-18); CALCIUM 8.8 MG/DL (8.5-10.1); CARBON DIOXIDE 18 MMOL/L (21-32); CHLORIDE 100 MMOL/L (98-107); CREATININE 1.1 MG/DL (0.55-1.30); POTASSIUM 3.8 MMOL/L (3.5-5.1); SODIUM 131 MMOL/L (136-145)
[2017-10-19 08:00] VITALS: BP 145/86
[2017-10-19] MEDS: Sucralfate 1gm tab ORAL SCH ×4 (09:49→21:01)
[2017-10-19] MEDS: Pantoprazole Inj IVP SCH ×2 (09:49→21:01)
--- NOTE | 2017-10-19 10:51 | Pulmonolgy Critical Care Note ---
Critical Care - Asmt/Plan Problems: (1) Acute on chronic respiratory failure (2) Upper GI bleed (3) Sepsis (4) Alzheimer's dementia Respiratory: CXR Cardiac: continue to monitor HR/BP Renal: keep IV fluid, check electrolytes Infectious Disease: check cultures, continue antibiotics Gastrointestinal: continue feedings/current rate Endocrine: monitor blood sugar, check HgA1C Neurologic: PRN Ativan Affect: PRN ativan Prophylaxis: Protonix Disposition: keep in ICU Notes Reviewed: net ui developer, cardio, renal, ID Critical Care - Objective Last 24 Hour Vital Signs Date Time Temp Pulse Resp B/P (MAP) Pulse Ox O2 Delivery O2 Flow Rate FiO2 10/19/17 09:49 93 145/86 10/19/17 09:02 93 16 30 10/19/17 08:00 98.2 92 29 145/86 100 Mechanical Ventilator 30 10/19/17 07:25 75 16 30 10/19/17 05:16 95 20 30 10/19/17 04:00 98.0 100 30 145/86 100 Mechanical Ventilator 30 10/19/17 04:00 30 10/19/17 03:49 96 10/19/17 03:01 90 16 30 10/19/17 00:59 94 19 30 10/19/17 00:00 30 10/19/17 00:00 97.7 80 16 120/60 99 Mechanical Ventilator 30 10/19/17 00:00 80 10/18/17 23:08 97 22 30 10/18/17 21:25 84 17 30 10/18/17 20:05 80 10/18/17 20:00 30 10/18/17 20:00 97.7 90 18 133/65 96 Mechanical Ventilator 30 10/18/17 18:56 102 24 30 10/18/17 16:52 98 18 30 10/18/17 16:00 30 10/18/17 16:00 98.0 106 25 124/71 100 Mechanical Ventilator 30 10/18/17 15:53 91 10/18/17 14:46 93 16 30 10/18/17 12:58 88 16 30 10/18/17 12:00 98.7 109 20 144/103 100 Mechanical Ventilator 30 10/18/17 12:00 30 10/18/17 11:42 96 10/18/17 10:56 93 18 30 Status: awake Condition: critical, improving HEENT: atraumatic Neck: full ROM Heart: HR/BP stable, HR/BP unstable Abdomen: soft, active bowel sounds Extremities: no C/C/E Decubiti: location Micro: Microbiology Date/Time Source Procedure Growth Status 10/16/17 15:45 Blood Blood Culture - Preliminary NO GROWTH AFTER 48 HOURS Resulted 10/16/17 15:30 Blood Blood Culture - Preliminary NO GROWTH AFTER 48 HOURS Resulted 10/16/17 20:30 Nasal Nares MRSA Culture - Final Staphylococcus Aureus - Mrsa Complete 10/16/17 19:30 Nasal Nares Influenza Types A,B Antigen (RYDER) - Final Complete Critical Care - Subjective ROS Limited/Unobtainable: No Condition: critical EKG Rhythm: Sinus Rhythm FI02: 30 Vent Support Breath Rate: 16 Vent Support Mode: AC Vent Tidal Volume: 600 Sputum Amount: Scant PEEP: 5.0 PIP: 21 I&O: Intake and Output 10/18/17 10/19/17 19:00 07:00 Intake Total 900 ml 685 ml Output Total 600 ml 350 ml Balance 300 ml 335 ml IV Total 900 ml 685 ml Output Urine Total 600 ml 350 ml # Bowel Movements 3 CXR: no changes Labs: Laboratory Tests Test 10/19/17 04:00 White Blood Count 11.2 K/UL (4.8-10.8) H Red Blood Count 3.00 M/UL (4.70-6.10) L Hemoglobin 8.0 G/DL (14.2-18.0) L Hematocrit 25.2 % (42.0-52.0) L Mean Corpuscular Volume 84 FL (80-99) Mean Corpuscular Hemoglobin 26.6 PG (27.0-31.0) L Mean Corpuscular Hemoglobin Concent 31.5 G/DL (32.0-36.0) L Red Cell Distribution Width 15.9 % (11.6-14.8) H Platelet Count 389 K/UL (150-450) Mean Platelet Volume 6.8 FL (6.5-10.1) Neutrophils (%) (Auto) 56.7 % (45.0-75.0) Lymphocytes (%) (Auto) 14.2 % (20.0-45.0) L Monocytes (%) (Auto) 9.7 % (1.0-10.0) Eosinophils (%) (Auto) 18.7 % (0.0-3.0) H Basophils (%) (Auto) 0.6 % (0.0-2.0) Sodium Level 131 MMOL/L (136-145) L Potassium Level 3.8 MMOL/L (3.5-5.1) Chloride Level 100 MMOL/L (98-107) Carbon Dioxide Level 18 MMOL/L (21-32) L Anion Gap 13 mmol/L (5-15) Blood Urea Nitrogen 13 mg/dL (7-18) Creatinine 1.1 MG/DL (0.55-1.30) Estimat Glomerular Filtration Rate > 60 mL/min (>60) Glucose Level 64 MG/DL (74-106) L Calcium Level 8.8 MG/DL (8.5-10.1) MIKAYLA WILLOUGHBY Oct 19, 2017 10:51
[2017-10-19 12:00] VITALS: BP 158/79
--- NOTE | 2017-10-19 13:13 | GI Progress Note ---
Assessment/Plan Problems: (1) Dementia ICD Codes: F03.90 - Dementia SNOMED: 41252277 (2) Upper respiratory infection ICD Codes: J06.9 - Acute upper respiratory infection, unspecified SNOMED: 63994017 (3) Protein-calorie malnutrition, severe ICD Codes: E43 - Unspecified severe protein-calorie malnutrition SNOMED: 141090937 (4) Feeding by G-tube ICD Codes: Z93.1 - Gastrostomy status SNOMED: 050881684, 887288504 (5) Hypoalbuminemia ICD Codes: E88.09 - Other disorders of plasma-protein metabolism, not elsewhere classified SNOMED: 048254635 (6) Alzheimer's dementia ICD Codes: G30.9 - Alzheimer's disease, unspecified SNOMED: 37207502 (7) Upper GI bleed ICD Codes: K92.2 - Upper gastrointestinal hemorrhage SNOMED: 47226681 (8) Anemia ICD Codes: D64.9 - Anemia SNOMED: 132923430 (9) Iron deficiency ICD Codes: E61.1 - Iron deficiency SNOMED: 04725267 (10) Esophagitis ICD Codes: K20.9 - Esophagitis SNOMED: 68341522 Status: unchanged Status Narrative Discussed with Dr. Wilson. Assessment/Plan EGD deferred >> conservator will only consent if case emergent GTFs per RD today OB stool r/o GI bleed monitor H&H, prn transfusions bowel regime ppi BID + carafate fu labs Subjective Subjective limited Objective Last 24 Hour Vital Signs Date Time Temp Pulse Resp B/P (MAP) Pulse Ox O2 Delivery O2 Flow Rate FiO2 10/19/17 13:08 86 28 30 10/19/17 12:00 97.7 88 18 158/79 100 Mechanical Ventilator 30 10/19/17 11:39 80 10/19/17 10:55 74 16 30 10/19/17 09:49 93 145/86 10/19/17 09:02 93 16 30 10/19/17 08:00 98.2 92 29 145/86 100 Mechanical Ventilator 30 10/19/17 08:00 73 10/19/17 08:00 30 10/19/17 07:25 75 16 30 10/19/17 05:16 95 20 30 10/19/17 04:00 98.0 100 30 145/86 100 Mechanical Ventilator 30 10/19/17 04:00 30 10/19/17 03:49 96 10/19/17 03:01 90 16 30 10/19/17 00:59 94 19 30 10/19/17 00:00 30 10/19/17 00:00 97.7 80 16 120/60 99 Mechanical Ventilator 30 10/19/17 00:00 80 10/18/17 23:08 97 22 30 10/18/17 21:25 84 17 30 10/18/17 20:05 80 10/18/17 20:00 30 10/18/17 20:00 97.7 90 18 133/65 96 Mechanical Ventilator 30 10/18/17 18:56 102 24 30 10/18/17 16:52 98 18 30 10/18/17 16:00 30 10/18/17 16:00 98.0 106 25 124/71 100 Mechanical Ventilator 30 10/18/17 15:53 91 10/18/17 14:46 93 16 30 Intake and Output 10/18/17 10/19/17 19:00 07:00 Intake Total 900 ml 685 ml Output Total 600 ml 350 ml Balance 300 ml 335 ml IV Total 900 ml 685 ml Output Urine Total 600 ml 350 ml # Bowel Movements 3 Laboratory Tests Test 10/19/17 04:00 White Blood Count 11.2 K/UL (4.8-10.8) H Red Blood Count 3.00 M/UL (4.70-6.10) L Hemoglobin 8.0 G/DL (14.2-18.0) L Hematocrit 25.2 % (42.0-52.0) L Mean Corpuscular Volume 84 FL (80-99) Mean Corpuscular Hemoglobin 26.6 PG (27.0-31.0) L Mean Corpuscular Hemoglobin Concent 31.5 G/DL (32.0-36.0) L Red Cell Distribution Width 15.9 % (11.6-14.8) H Platelet Count 389 K/UL (150-450) Mean Platelet Volume 6.8 FL (6.5-10.1) Neutrophils (%) (Auto) 56.7 % (45.0-75.0) Lymphocytes (%) (Auto) 14.2 % (20.0-45.0) L Monocytes (%) (Auto) 9.7 % (1.0-10.0) Eosinophils (%) (Auto) 18.7 % (0.0-3.0) H Basophils (%) (Auto) 0.6 % (0.0-2.0) Sodium Level 131 MMOL/L (136-145) L Potassium Level 3.8 MMOL/L (3.5-5.1) Chloride Level 100 MMOL/L (98-107) Carbon Dioxide Level 18 MMOL/L (21-32) L Anion Gap 13 mmol/L (5-15) Blood Urea Nitrogen 13 mg/dL (7-18) Creatinine 1.1 MG/DL (0.55-1.30) Estimat Glomerular Filtration Rate > 60 mL/min (>60) Glucose Level 64 MG/DL (74-106) L Calcium Level 8.8 MG/DL (8.5-10.1) Height (Feet): 5 Height (Inches): 10.00 Weight (Pounds): 126 General Appearance: no apparent distress, alert Cardiovascular: normal rate Respiratory/Chest: other - mech vent Abdominal Exam: GT site - c/d/i Arabella Quesada N.P. Oct 19, 2017 13:13
--- NOTE | 2017-10-19 14:07 | Infectious Diseases Prog Note ---
Assessment/Plan Assessment/Plan Assessment: UGIB -hx of UGIB, severe esophagitis s/p multiple EGDs Leukocytosis, mild- suspect reactive -CXR: No acute process -influenza neg Rash-suspicious for Scabies Acute on chronic anemia chronic vent/trach s/p peg bed bound malnutrition SNF resident Plan: Monitor off abx - 10/17 SP IV Vanco and Cefepime -Permethrin cream and ivermectin x1 10/17 -contact precautions -f/u cx ( Bl ) -Monitor CBC/BMP, temperatures -ETT/Trach care Subjective Constitutional: Denies: no symptoms, fever, chills, fatigue, anorexia, drenching sweats, other Allergies: Coded Allergies: NO KNOWN DRUG ALLERGIES (Verified Allergy, Unknown, 09/11/16) Objective Vital Signs Last 24 Hour Vital Signs Date Time Temp Pulse Resp B/P (MAP) Pulse Ox O2 Delivery O2 Flow Rate FiO2 10/19/17 13:08 86 28 30 10/19/17 12:00 30 10/19/17 12:00 97.7 88 18 158/79 100 Mechanical Ventilator 30 10/19/17 11:39 80 10/19/17 10:55 74 16 30 10/19/17 09:49 93 145/86 10/19/17 09:02 93 16 30 10/19/17 08:00 98.2 92 29 145/86 100 Mechanical Ventilator 30 10/19/17 08:00 73 10/19/17 08:00 30 10/19/17 07:25 75 16 30 10/19/17 05:16 95 20 30 10/19/17 04:00 98.0 100 30 145/86 100 Mechanical Ventilator 30 10/19/17 04:00 30 10/19/17 03:49 96 10/19/17 03:01 90 16 30 10/19/17 00:59 94 19 30 10/19/17 00:00 30 10/19/17 00:00 97.7 80 16 120/60 99 Mechanical Ventilator 30 10/19/17 00:00 80 10/18/17 23:08 97 22 30 10/18/17 21:25 84 17 30 10/18/17 20:05 80 10/18/17 20:00 30 10/18/17 20:00 97.7 90 18 133/65 96 Mechanical Ventilator 30 10/18/17 18:56 102 24 30 10/18/17 16:52 98 18 30 10/18/17 16:00 30 10/18/17 16:00 98.0 106 25 124/71 100 Mechanical Ventilator 30 10/18/17 15:53 91 10/18/17 14:46 93 16 30 Height (Feet): 5 Height (Inches): 10.00 Weight (Pounds): 126 HEENT: anicteric Respiratory/Chest: normal breath sounds Cardiovascular: regularly irregular Abdomen: non distended Microbiology Date/Time Source Procedure Growth Status 10/16/17 15:45 Blood Blood Culture - Preliminary NO GROWTH AFTER 48 HOURS Resulted 10/16/17 15:30 Blood Blood Culture - Preliminary NO GROWTH AFTER 48 HOURS Resulted 10/16/17 20:30 Nasal Nares MRSA Culture - Final Staphylococcus Aureus - Mrsa Complete 10/16/17 19:30 Nasal Nares Influenza Types A,B Antigen (RYDER) - Final Complete Laboratory Tests Test 10/19/17 04:00 White Blood Count 11.2 K/UL (4.8-10.8) H Red Blood Count 3.00 M/UL (4.70-6.10) L Hemoglobin 8.0 G/DL (14.2-18.0) L Hematocrit 25.2 % (42.0-52.0) L Mean Corpuscular Volume 84 FL (80-99) Mean Corpuscular Hemoglobin 26.6 PG (27.0-31.0) L Mean Corpuscular Hemoglobin Concent 31.5 G/DL (32.0-36.0) L Red Cell Distribution Width 15.9 % (11.6-14.8) H Platelet Count 389 K/UL (150-450) Mean Platelet Volume 6.8 FL (6.5-10.1) Neutrophils (%) (Auto) 56.7 % (45.0-75.0) Lymphocytes (%) (Auto) 14.2 % (20.0-45.0) L Monocytes (%) (Auto) 9.7 % (1.0-10.0) Eosinophils (%) (Auto) 18.7 % (0.0-3.0) H Basophils (%) (Auto) 0.6 % (0.0-2.0) Sodium Level 131 MMOL/L (136-145) L Potassium Level 3.8 MMOL/L (3.5-5.1) Chloride Level 100 MMOL/L (98-107) Carbon Dioxide Level 18 MMOL/L (21-32) L Anion Gap 13 mmol/L (5-15) Blood Urea Nitrogen 13 mg/dL (7-18) Creatinine 1.1 MG/DL (0.55-1.30) Estimat Glomerular Filtration Rate > 60 mL/min (>60) Glucose Level 64 MG/DL (74-106) L Calcium Level 8.8 MG/DL (8.5-10.1) Current Medications Medications (Trade) Dose Ordered Sig/Wanda Route PRN Reason Start Time Stop Time Status Last Admin Dose Admin Acetaminophen (Tylenol) 650 mg Q4H PRN ORAL FEVER (temp>100.5F) 10/16/17 19:30 11/15/17 19:29 Albuterol/ Ipratropium (Albuterol/ Ipratropium) 3 ml Q4H PRN HHN Shortness of Breath 10/16/17 19:30 10/21/17 19:29 Amlodipine Besylate (Norvasc) 2.5 mg DAILY ORAL 10/17/17 09:00 11/16/17 08:59 10/19/17 09:49 Chlorhexidine Gluconate (Jasmin-Hex 2%) 1 applic Q24H TOPIC 10/18/17 20:00 11/17/17 19:59 10/18/17 20:31 Dextrose (Dextrose 50%) STAT PRN IV Hypoglycemia 10/16/17 19:30 11/15/17 19:29 Diphenhydramine HCl (Benadryl) 25 mg Q6H PRN IVP Itching 10/18/17 19:00 11/17/17 18:59 10/18/17 20:31 Levothyroxine Sodium (Synthroid) 50 mcg ACBREAKFAST GT 10/17/17 06:30 11/16/17 06:29 10/19/17 05:45 Lorazepam (Ativan 2mg/ml 1ml) 2 mg Q2H PRN IV For Anxiety 10/16/17 19:30 10/23/17 19:29 10/18/17 20:32 Morphine Sulfate (Morphine Sulfate) 4 mg Q4H PRN IVP Severe Pain (Pain Scale 7-10) 10/16/17 19:30 10/23/17 19:29 10/18/17 14:54 Ondansetron HCl (Zofran) 4 mg Q6H PRN IVP Nausea & Vomiting 10/16/17 19:30 11/15/17 19:29 Pantoprazole (Protonix) 40 mg EVERY 12 HOURS IVP 10/17/17 21:00 11/16/17 20:59 10/19/17 09:49 Polyethylene Glycol (Miralax) 17 gm DAILYPRN PRN ORAL Constipation 10/16/17 19:30 11/15/17 19:29 Sodium Chloride 1,000 ml @ 75 mls/hr [id number] IV 10/16/17 21:00 11/15/17 20:59 10/19/17 05:52 Sucralfate (Carafate) 1 gm FOUR TIMES A DAY ORAL 10/18/17 09:00 11/17/17 08:59 10/19/17 13:15 GLYNN BURGOS M.D. Oct 19, 2017 14:07
[2017-10-19 16:00] VITALS: BP 151/69
[2017-10-19 20:00] VITALS: BP 137/70
[2017-10-19] MEDS: Dyna-Hex 2% Top Sol 2oz TOPIC SCH (21:01)
[2017-10-20] VITALS (8 sets, daily range): BP systolic 118–168; BP diastolic 52–98
[2017-10-20 05:35] LABS: HEMATOCRIT 30.3 % (42.0-52.0); HEMOGLOBIN 9.6 G/DL (14.2-18.0); MEAN CORPUSCULAR VOLUME 85 FL (80-99); PLATELET COUNT 543 K/UL (150-450); RED BLOOD COUNT 3.55 M/UL (4.70-6.10); RED CELL DISTRIBUTION WIDTH 16.3 % (11.6-14.8); WHITE BLOOD COUNT 18.5 K/UL (4.8-10.8)
[2017-10-20 06:25] LABS: ALANINE AMINOTRANSFERASE 20 U/L (12-78); ALBUMIN 3.1 G/DL (3.4-5.0); ALBUMIN/GLOBULIN RATIO 0.5 (1.0-2.7); ALKALINE PHOSPHATASE 125 U/L (46-116); ANION GAP 18 mmol/L (5-15); ASPARTATE AMINO TRANSFERASE 24 U/L (15-37); BILIRUBIN,TOTAL 0.4 MG/DL (0.2-1.0); BLOOD UREA NITROGEN 12 mg/dL (7-18); CALCIUM 9.6 MG/DL (8.5-10.1); CARBON DIOXIDE 15 MMOL/L (21-32); CHLORIDE 98 MMOL/L (98-107); CREATININE 1.2 MG/DL (0.55-1.30); PHOSPHORUS 3.8 MG/DL (2.5-4.9); POTASSIUM 3.7 MMOL/L (3.5-5.1); SODIUM 131 MMOL/L (136-145)
--- NOTE | 2017-10-20 08:13 | Pulmonolgy Critical Care Note ---
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 with: nurses, consultants, director of casework 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 partner 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 - Objective Last 24 Hour Vital Signs Date Time Temp Pulse Resp B/P (MAP) Pulse Ox O2 Delivery O2 Flow Rate FiO2 10/20/17 07:23 96 22 30 10/20/17 06:00 96 118/78 10/20/17 05:30 89 22 30 10/20/17 05:10 97.1 101 22 149/98 98 Mechanical Ventilator 100 10/20/17 04:00 100 10/20/17 04:00 96 10/20/17 04:00 97.1 101 22 149/98 98 Mechanical Ventilator 100 10/20/17 03:26 85 23 30 10/20/17 01:20 88 22 30 10/20/17 00:00 98.2 89 20 168/76 100 Mechanical Ventilator 30 10/20/17 00:00 80 10/19/17 23:41 82 23 30 10/19/17 20:54 65 18 30 10/19/17 20:00 30 10/19/17 20:00 66 10/19/17 20:00 98.0 66 16 137/70 100 Mechanical Ventilator 30 10/19/17 19:47 71 16 30 10/19/17 17:34 77 18 30 10/19/17 16:00 30 10/19/17 16:00 98.0 70 18 151/69 100 Mechanical Ventilator 30 10/19/17 16:00 82 10/19/17 15:05 79 19 30 10/19/17 13:08 86 28 30 10/19/17 12:00 30 10/19/17 12:00 97.7 88 18 158/79 100 Mechanical Ventilator 30 10/19/17 11:39 80 10/19/17 10:55 74 16 30 10/19/17 09:49 93 145/86 10/19/17 09:02 93 16 30 Status: awake Condition: critical HEENT: atraumatic Neck: full ROM Heart: HR/BP stable Abdomen: soft, non-tender Extremities: no C/C/E, edema Critical Care - Subjective ROS Limited/Unobtainable: Yes Condition: critical FI02: 30 Vent Support Breath Rate: 16 Vent Support Mode: AC Vent Tidal Volume: 600 Sputum Amount: Small PEEP: 5.0 PIP: 22 Fluids: 1/2 NS 75 cc/hr I&O: Intake and Output 10/19/17 10/20/17 19:00 07:00 Intake Total 1165 ml 1020 ml Output Total 550 ml 2200 ml Balance 615 ml -1180 ml Free Water 120 ml IV Total 825 ml 900 ml Other 340 ml Output Urine Total 550 ml 2200 ml # Bowel Movements 2 CXR: no change Labs: Laboratory Tests Test 10/19/17 17:45 10/20/17 04:40 Vancomycin Level Trough 7.5 ug/mL (5.0-12.0) White Blood Count 18.5 K/UL (4.8-10.8) #H Red Blood Count 3.55 M/UL (4.70-6.10) L Hemoglobin 9.6 G/DL (14.2-18.0) L Hematocrit 30.3 % (42.0-52.0) L Mean Corpuscular Volume 85 FL (80-99) Mean Corpuscular Hemoglobin 27.0 PG (27.0-31.0) Mean Corpuscular Hemoglobin Concent 31.7 G/DL (32.0-36.0) L Red Cell Distribution Width 16.3 % (11.6-14.8) H Platelet Count 543 K/UL (150-450) H Mean Platelet Volume 6.9 FL (6.5-10.1) Neutrophils (%) (Auto) % (45.0-75.0) Lymphocytes (%) (Auto) % (20.0-45.0) Monocytes (%) (Auto) % (1.0-10.0) Eosinophils (%) (Auto) % (0.0-3.0) Basophils (%) (Auto) % (0.0-2.0) Neutrophils % (Manual) Pending Lymphocytes % (Manual) Pending Platelet Estimate Pending Platelet Morphology Pending Erythrocyte Sedimentation Rate 62 MM/HR (0-20) H Sodium Level 131 MMOL/L (136-145) L Potassium Level 3.7 MMOL/L (3.5-5.1) Chloride Level 98 MMOL/L (98-107) Carbon Dioxide Level 15 MMOL/L (21-32) L Anion Gap 18 mmol/L (5-15) H Blood Urea Nitrogen 12 mg/dL (7-18) Creatinine 1.2 MG/DL (0.55-1.30) Estimat Glomerular Filtration Rate > 60 mL/min (>60) Glucose Level 75 MG/DL (74-106) Calcium Level 9.6 MG/DL (8.5-10.1) Phosphorus Level 3.8 MG/DL (2.5-4.9) Magnesium Level 1.9 MG/DL (1.8-2.4) Total Bilirubin 0.4 MG/DL (0.2-1.0) Aspartate Amino Transf (AST/SGOT) 24 U/L (15-37) Alanine Aminotransferase (ALT/SGPT) 20 U/L (12-78) Alkaline Phosphatase 125 U/L (46-116) H Total Protein 9.0 G/DL (6.4-8.2) H Albumin 3.1 G/DL (3.4-5.0) L Globulin 5.9 g/dL Albumin/Globulin Ratio 0.5 (1.0-2.7) L MIKAYLA WILLOUGHBY Oct 20, 2017 08:13
[2017-10-20] MEDS: Sucralfate 1gm tab ORAL SCH ×4 (09:08→20:24)
[2017-10-20] MEDS: Pantoprazole Inj IVP SCH ×2 (09:08→20:23)
[2017-10-20] MEDS ORDERED: 1/2 NS 1000ml IV ONE (16:40)
[2017-10-20] MEDS ORDERED: Sterile Water Irrig 1000ml IRRIG ONE (16:40)
--- NOTE | 2017-10-20 16:57 | General Progress Note ---
Assessment/Plan Assessment/Plan Assessment 1) Dementia ICD Codes: F03.90 - Dementia SNOMED: 29790916 (2) Upper respiratory infection ICD Codes: J06.9 - Acute upper respiratory infection, unspecified SNOMED: 43581307 (3) Protein-calorie malnutrition, severe ICD Codes: E43 - Unspecified severe protein-calorie malnutrition SNOMED: 116879191 (4) Feeding by G-tube ICD Codes: Z93.1 - Gastrostomy status SNOMED: 837801156, 809675420 (5) Hypoalbuminemia ICD Codes: E88.09 - Other disorders of plasma-protein metabolism, not elsewhere classified SNOMED: 927909145 (6) Alzheimer's dementia ICD Codes: G30.9 - Alzheimer's disease, unspecified SNOMED: 90870273 (7) Upper GI bleed ICD Codes: K92.2 - Upper gastrointestinal hemorrhage SNOMED: 92807461 (8) Anemia ICD Codes: D64.9 - Anemia SNOMED: 861486742 (9) Iron deficiency ICD Codes: E61.1 - Iron deficiency SNOMED: 72164814 (10) Esophagitis ICD Codes: K20.9 - Esophagitis SNOMED: 60253281 Status: unchanged Assessment/Plan EGD deferred >> conservator will only consent if case emergent GTFs today OB stool r/o GI bleed monitor H&H, prn transfusions bowel regime ppi BID + carafate fu labs Subjective Allergies: Coded Allergies: NO KNOWN DRUG ALLERGIES (Verified Allergy, Unknown, 09/11/16) Subjective debilitated , confused off feeds restrained, agitated Objective Last 24 Hour Vital Signs Date Time Temp Pulse Resp B/P (MAP) Pulse Ox O2 Delivery O2 Flow Rate FiO2 10/20/17 15:31 81 20 30 10/20/17 13:42 86 22 30 10/20/17 12:00 98 10/20/17 12:00 40 10/20/17 12:00 97.7 102 16 150/85 100 Mechanical Ventilator 40 10/20/17 10:55 93 24 30 10/20/17 09:09 88 124/75 10/20/17 08:51 84 23 30 10/20/17 08:00 40 10/20/17 08:00 97.5 88 26 124/75 99 Mechanical Ventilator 40 10/20/17 08:00 86 10/20/17 07:23 96 22 30 2/10/18 06:00 96 118/78 10/20/17 05:30 89 22 30 10/20/17 05:10 97.1 101 22 149/98 98 Mechanical Ventilator 100 10/20/17 04:00 100 10/20/17 04:00 96 10/20/17 04:00 97.1 101 22 149/98 98 Mechanical Ventilator 100 10/20/17 03:26 85 23 30 10/20/17 01:20 88 22 30 10/20/17 00:00 98.2 89 20 168/76 100 Mechanical Ventilator 30 10/20/17 00:00 80 10/19/17 23:41 82 23 30 10/19/17 20:54 65 18 30 10/19/17 20:00 30 10/19/17 20:00 66 10/19/17 20:00 98.0 66 16 137/70 100 Mechanical Ventilator 30 10/19/17 19:47 71 16 30 10/19/17 17:34 77 18 30 Intake and Output 10/19/17 10/20/17 19:00 07:00 Intake Total 1165 ml 1020 ml Output Total 550 ml 2200 ml Balance 615 ml -1180 ml Free Water 120 ml IV Total 825 ml 900 ml Other 340 ml Output Urine Total 550 ml 2200 ml # Bowel Movements 2 Laboratory Tests 10/19/17 17:45: Vancomycin Level Trough 7.5 10/20/17 04:40: White Blood Count 18.5#H, Red Blood Count 3.55L, Hemoglobin 9.6L, Hematocrit 30.3L, Mean Corpuscular Volume 85, Mean Corpuscular Hemoglobin 27.0, Mean Corpuscular Hemoglobin Concent 31.7L, Red Cell Distribution Width 16.3H, Platelet Count 543H, Mean Platelet Volume 6.9, Neutrophils (%) (Auto) , Lymphocytes (%) (Auto) , Monocytes (%) (Auto) , Eosinophils (%) (Auto) , Basophils (%) (Auto) , Differential Total Cells Counted 100, Neutrophils % ( Manual) 52, Lymphocytes % (Manual) 21, Monocytes % (Manual) 8, Eosinophils % ( Manual) 18H, Basophils % (Manual) 1, Band Neutrophils 0, Platelet Estimate IncreasedH, Platelet Morphology Normal, Hypochromasia 2+, Anisocytosis 1+, Erythrocyte Sedimentation Rate 62H, Sodium Level 131L, Potassium Level 3.7, Chloride Level 98, Carbon Dioxide Level 15L, Anion Gap 18H, Blood Urea Nitrogen 12, Creatinine 1.2, Estimat Glomerular Filtration Rate > 60, Glucose Level 75, Calcium Level 9.6, Phosphorus Level 3.8, Magnesium Level 1.9, Total Bilirubin 0.4, Aspartate Amino Transf (AST/SGOT) 24, Alanine Aminotransferase (ALT/SGPT) 20, Alkaline Phosphatase 125H, Total Protein 9.0H, Albumin 3.1L, Globulin 5.9, Albumin/Globulin Ratio 0.5L 10/20/17 09:00: Stool Occult Blood Positive Height (Feet): 5 Height (Inches): 10.00 Weight (Pounds): 126 Objective Agitated WM NCAT s/p trach coarse BS RR soft ND, (+) GT contracted IVETH FAN Oct 20, 2017 16:57
[2017-10-20] MEDS: Dyna-Hex 2% Top Sol 2oz TOPIC SCH (20:23)
[2017-10-21] VITALS (7 sets, daily range): BP systolic 128–150; BP diastolic 64–88
[2017-10-21 05:24] LABS: BASOPHILS % (AUTO) 0.7 % (0.0-2.0); HEMATOCRIT 27.4 % (42.0-52.0); HEMOGLOBIN 8.9 G/DL (14.2-18.0); MEAN CORPUSCULAR VOLUME 84 FL (80-99); MONOCYTES % (AUTO) 12.1 % (1.0-10.0); NEUTROPHILS % (AUTO) 57.2 % (45.0-75.0); PLATELET COUNT 458 K/UL (150-450); RED BLOOD COUNT 3.27 M/UL (4.70-6.10); RED CELL DISTRIBUTION WIDTH 16.2 % (11.6-14.8); WHITE BLOOD COUNT 12.1 K/UL (4.8-10.8)
[2017-10-21 05:53] LABS: ALANINE AMINOTRANSFERASE 22 U/L (12-78); ALBUMIN 2.8 G/DL (3.4-5.0); ALBUMIN/GLOBULIN RATIO 0.5 (1.0-2.7); ALKALINE PHOSPHATASE 108 U/L (46-116); ANION GAP 14 mmol/L (5-15); ASPARTATE AMINO TRANSFERASE 27 U/L (15-37); BILIRUBIN,TOTAL 0.3 MG/DL (0.2-1.0); BLOOD UREA NITROGEN 16 mg/dL (7-18); CALCIUM 9.1 MG/DL (8.5-10.1); CARBON DIOXIDE 19 MMOL/L (21-32); CHLORIDE 100 MMOL/L (98-107); CREATININE 1.2 MG/DL (0.55-1.30); PHOSPHORUS 2.7 MG/DL (2.5-4.9); POTASSIUM 3.4 MMOL/L (3.5-5.1); SODIUM 133 MMOL/L (136-145)
--- NOTE | 2017-10-21 07:58 | Pulmonolgy Critical Care Note ---
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 - Objective Last 24 Hour Vital Signs Date Time Temp Pulse Resp B/P (MAP) Pulse Ox O2 Delivery O2 Flow Rate FiO2 10/21/17 06:45 91 18 40 10/21/17 05:41 97 26 30 10/21/17 04:00 98 10/21/17 04:00 40 10/21/17 04:00 97.7 84 22 140/88 100 Mechanical Ventilator 40 10/21/17 03:49 87 20 30 10/21/17 01:34 85 22 30 10/21/17 00:00 97.9 84 22 128/70 100 Mechanical Ventilator 40 10/21/17 00:00 40 10/21/17 00:00 84 10/20/17 23:41 82 20 30 10/20/17 21:10 78 21 30 10/20/17 20:00 97.6 75 22 138/72 100 Mechanical Ventilator 40 10/20/17 20:00 88 10/20/17 20:00 40 10/20/17 19:20 83 18 30 10/20/17 17:14 83 23 30 10/20/17 16:00 40 10/20/17 16:00 97.5 89 22 138/52 100 Mechanical Ventilator 40 10/20/17 16:00 85 10/20/17 15:31 81 20 30 10/20/17 13:42 86 22 30 10/20/17 12:00 98 10/20/17 12:00 40 10/20/17 12:00 97.7 102 16 150/85 100 Mechanical Ventilator 40 10/20/17 10:55 93 24 30 10/20/17 09:09 88 124/75 10/20/17 08:51 84 23 30 10/20/17 08:00 40 10/20/17 08:00 97.5 88 26 124/75 99 Mechanical Ventilator 40 10/20/17 08:00 86 Status: awake Condition: critical Neck: full ROM Lungs: clear Heart: HR/BP stable, HR/BP unstable Abdomen: soft, non-tender, feeding tube Extremities: no C/C/E Critical Care - Subjective ROS Limited/Unobtainable: Yes Interval Events: looks better today Condition: critical FI02: 40 Vent Support Breath Rate: 16 Vent Support Mode: AC Vent Tidal Volume: 600 Sputum Amount: Small PEEP: 5.0 PIP: 23 Fluids: 1/2 NS 75 cc .hour Tube Feeding Amount: 30 I&O: Intake and Output 10/20/17 10/21/17 19:00 07:00 Intake Total 1220 ml 450 ml Output Total 302 ml 200 ml Balance 918 ml 250 ml Free Water 100 ml IV Total 900 ml Tube Feeding 40 ml 290 ml Other 280 ml 60 ml Output Urine Total 300 ml 200 ml Stool Total 2 ml # Voids 2 # Bowel Movements 2 4 CXR: no new changes Labs: Laboratory Tests Test 10/20/17 09:00 10/21/17 04:00 Stool Occult Blood Positive (NEGATIVE) White Blood Count 12.1 K/UL (4.8-10.8) H Red Blood Count 3.27 M/UL (4.70-6.10) L Hemoglobin 8.9 G/DL (14.2-18.0) L Hematocrit 27.4 % (42.0-52.0) L Mean Corpuscular Volume 84 FL (80-99) Mean Corpuscular Hemoglobin 27.1 PG (27.0-31.0) Mean Corpuscular Hemoglobin Concent 32.4 G/DL (32.0-36.0) Red Cell Distribution Width 16.2 % (11.6-14.8) H Platelet Count 458 K/UL (150-450) H Mean Platelet Volume 6.9 FL (6.5-10.1) Neutrophils (%) (Auto) 57.2 % (45.0-75.0) Lymphocytes (%) (Auto) 17.0 % (20.0-45.0) L Monocytes (%) (Auto) 12.1 % (1.0-10.0) H Eosinophils (%) (Auto) 13.0 % (0.0-3.0) H Basophils (%) (Auto) 0.7 % (0.0-2.0) Sodium Level 133 MMOL/L (136-145) L Potassium Level 3.4 MMOL/L (3.5-5.1) L Chloride Level 100 MMOL/L (98-107) Carbon Dioxide Level 19 MMOL/L (21-32) L Anion Gap 14 mmol/L (5-15) Blood Urea Nitrogen 16 mg/dL (7-18) Creatinine 1.2 MG/DL (0.55-1.30) Estimat Glomerular Filtration Rate > 60 mL/min (>60) Glucose Level 99 MG/DL (74-106) Calcium Level 9.1 MG/DL (8.5-10.1) Phosphorus Level 2.7 MG/DL (2.5-4.9) Magnesium Level 1.6 MG/DL (1.8-2.4) L Total Bilirubin 0.3 MG/DL (0.2-1.0) Aspartate Amino Transf (AST/SGOT) 27 U/L (15-37) Alanine Aminotransferase (ALT/SGPT) 22 U/L (12-78) Alkaline Phosphatase 108 U/L (46-116) Total Protein 7.9 G/DL (6.4-8.2) Albumin 2.8 G/DL (3.4-5.0) L Globulin 5.1 g/dL Albumin/Globulin Ratio 0.5 (1.0-2.7) L MIKAYLA WILLOUGHBY Oct 21, 2017 07:58
[2017-10-21] MEDS: Sucralfate 1gm tab ORAL SCH ×4 (09:00→20:29)
[2017-10-21] MEDS: Pantoprazole Inj IVP SCH ×2 (09:00→20:29)
[2017-10-21] MEDS ORDERED: Potassium Chloride 40 MEQ in Sodium Chloride 500ML 550 ML IVPB ONE (09:30)
--- NOTE | 2017-10-21 11:41 | Infectious Diseases Prog Note ---
Assessment/Plan Assessment/Plan Assessment: UGIB -hx of UGIB, severe esophagitis s/p multiple EGDs Leukocytosis, mild -CXR: No acute process -influenza neg Rash-suspicious for Scabies Acute on chronic anemia chronic vent/trach s/p peg bed bound malnutrition SNF resident Plan: Monitor off abx - 10/17 SP IV Vanco and Cefepime -Permethrin cream and ivermectin x1 10/17 next treatmenty 10/24 -contact precautions -f/u cx ( Bl ) -Monitor CBC/BMP, temperatures -ETT/Trach care Subjective Constitutional: Denies: no symptoms, fever, chills, fatigue, anorexia, drenching sweats, other Allergies: Coded Allergies: NO KNOWN DRUG ALLERGIES (Verified Allergy, Unknown, 09/11/16) Objective Vital Signs Last 24 Hour Vital Signs Date Time Temp Pulse Resp B/P (MAP) Pulse Ox O2 Delivery O2 Flow Rate FiO2 10/21/17 10:41 81 18 40 10/21/17 09:00 102 142/78 10/21/17 08:37 92 25 40 10/21/17 08:00 40 10/21/17 08:00 98.1 102 16 132/71 100 Mechanical Ventilator 40 102 102 10/21/17 08:00 102 10/21/17 06:45 91 18 40 10/21/17 05:41 97 26 30 10/21/17 04:00 98 10/21/17 04:00 40 10/21/17 04:00 97.7 84 22 140/88 100 Mechanical Ventilator 40 10/21/17 03:49 87 20 30 10/21/17 01:34 85 22 30 10/21/17 00:00 97.9 84 22 128/70 100 Mechanical Ventilator 40 10/21/17 00:00 40 10/21/17 00:00 84 10/20/17 23:41 82 20 30 10/20/17 21:10 78 21 30 10/20/17 20:00 97.6 75 22 138/72 100 Mechanical Ventilator 40 10/20/17 20:00 88 10/20/17 20:00 40 10/20/17 19:20 83 18 30 10/20/17 17:14 83 23 30 10/20/17 16:00 40 10/20/17 16:00 97.5 89 22 138/52 100 Mechanical Ventilator 40 10/20/17 16:00 85 10/20/17 15:31 81 20 30 10/20/17 13:42 86 22 30 10/20/17 12:00 98 10/20/17 12:00 40 10/20/17 12:00 97.7 102 16 150/85 100 Mechanical Ventilator 40 Height (Feet): 5 Height (Inches): 10.00 Weight (Pounds): 126 HEENT: atraumatic Respiratory/Chest: no accessory muscle use Cardiovascular: regularly irregular Abdomen: non distended Laboratory Tests Test 10/21/17 04:00 White Blood Count 12.1 K/UL (4.8-10.8) H Red Blood Count 3.27 M/UL (4.70-6.10) L Hemoglobin 8.9 G/DL (14.2-18.0) L Hematocrit 27.4 % (42.0-52.0) L Mean Corpuscular Volume 84 FL (80-99) Mean Corpuscular Hemoglobin 27.1 PG (27.0-31.0) Mean Corpuscular Hemoglobin Concent 32.4 G/DL (32.0-36.0) Red Cell Distribution Width 16.2 % (11.6-14.8) H Platelet Count 458 K/UL (150-450) H Mean Platelet Volume 6.9 FL (6.5-10.1) Neutrophils (%) (Auto) 57.2 % (45.0-75.0) Lymphocytes (%) (Auto) 17.0 % (20.0-45.0) L Monocytes (%) (Auto) 12.1 % (1.0-10.0) H Eosinophils (%) (Auto) 13.0 % (0.0-3.0) H Basophils (%) (Auto) 0.7 % (0.0-2.0) Sodium Level 133 MMOL/L (136-145) L Potassium Level 3.4 MMOL/L (3.5-5.1) L Chloride Level 100 MMOL/L (98-107) Carbon Dioxide Level 19 MMOL/L (21-32) L Anion Gap 14 mmol/L (5-15) Blood Urea Nitrogen 16 mg/dL (7-18) Creatinine 1.2 MG/DL (0.55-1.30) Estimat Glomerular Filtration Rate > 60 mL/min (>60) Glucose Level 99 MG/DL (74-106) Calcium Level 9.1 MG/DL (8.5-10.1) Phosphorus Level 2.7 MG/DL (2.5-4.9) Magnesium Level 1.6 MG/DL (1.8-2.4) L Total Bilirubin 0.3 MG/DL (0.2-1.0) Aspartate Amino Transf (AST/SGOT) 27 U/L (15-37) Alanine Aminotransferase (ALT/SGPT) 22 U/L (12-78) Alkaline Phosphatase 108 U/L (46-116) Total Protein 7.9 G/DL (6.4-8.2) Albumin 2.8 G/DL (3.4-5.0) L Globulin 5.1 g/dL Albumin/Globulin Ratio 0.5 (1.0-2.7) L Current Medications Medications (Trade) Dose Ordered Sig/Wanda Route PRN Reason Start Time Stop Time Status Last Admin Dose Admin Acetaminophen (Tylenol) 650 mg Q4H PRN ORAL FEVER (temp>100.5F) 10/16/17 19:30 11/15/17 19:29 Albuterol/ Ipratropium (Albuterol/ Ipratropium) 3 ml Q4H PRN HHN Shortness of Breath 10/16/17 19:30 10/21/17 19:29 Amlodipine Besylate (Norvasc) 2.5 mg DAILY ORAL 10/17/17 09:00 11/16/17 08:59 10/21/17 09:00 Chlorhexidine Gluconate (Jasmin-Hex 2%) 1 applic Q24H TOPIC 10/18/17 20:00 11/17/17 19:59 10/20/17 20:23 Dextrose (Dextrose 50%) STAT PRN IV Hypoglycemia 10/16/17 19:30 11/15/17 19:29 Diphenhydramine HCl (Benadryl) 25 mg Q6H PRN IVP Itching 10/18/17 19:00 11/17/17 18:59 10/18/17 20:31 Levothyroxine Sodium (Synthroid) 50 mcg ACBREAKFAST GT 10/17/17 06:30 11/16/17 06:29 10/21/17 06:25 Lorazepam (Ativan 2mg/ml 1ml) 2 mg Q2H PRN IV For Anxiety 10/16/17 19:30 10/23/17 19:29 10/18/17 20:32 Morphine Sulfate (Morphine Sulfate) 4 mg Q4H PRN IVP Severe Pain (Pain Scale 7-10) 10/16/17 19:30 10/23/17 19:29 10/18/17 14:54 Ondansetron HCl (Zofran) 4 mg Q6H PRN IVP Nausea & Vomiting 10/16/17 19:30 11/15/17 19:29 Pantoprazole (Protonix) 40 mg EVERY 12 HOURS IVP 10/17/17 21:00 11/16/17 20:59 10/21/17 09:00 Polyethylene Glycol (Miralax) 17 gm DAILYPRN PRN ORAL Constipation 10/16/17 19:30 11/15/17 19:29 Sodium Chloride 1,000 ml @ 75 mls/hr [id number] IV 10/16/17 21:00 11/15/17 20:59 10/21/17 07:40 Sucralfate (Carafate) 1 gm FOUR TIMES A DAY ORAL 10/18/17 09:00 11/17/17 08:59 10/21/17 09:00 GLYNN BURGOS M.D. Oct 21, 2017 11:41
--- NOTE | 2017-10-21 18:57 | General Progress Note ---
Assessment/Plan Assessment/Plan Assessment 1) Dementia ICD Codes: F03.90 - Dementia SNOMED: 28225709 (2) Upper respiratory infection ICD Codes: J06.9 - Acute upper respiratory infection, unspecified SNOMED: 76467520 (3) Protein-calorie malnutrition, severe ICD Codes: E43 - Unspecified severe protein-calorie malnutrition SNOMED: 323578313 (4) Feeding by G-tube ICD Codes: Z93.1 - Gastrostomy status SNOMED: 485487680, 995259430 (5) Hypoalbuminemia ICD Codes: E88.09 - Other disorders of plasma-protein metabolism, not elsewhere classified SNOMED: 209429420 (6) Alzheimer's dementia ICD Codes: G30.9 - Alzheimer's disease, unspecified SNOMED: 33585614 (7) Upper GI bleed ICD Codes: K92.2 - Upper gastrointestinal hemorrhage SNOMED: 12922108 (8) Anemia ICD Codes: D64.9 - Anemia SNOMED: 823093328 (9) Iron deficiency ICD Codes: E61.1 - Iron deficiency SNOMED: 32858331 (10) Esophagitis ICD Codes: K20.9 - Esophagitis SNOMED: 26281316 Status: unchanged Assessment/Plan EGD deferred >> conservator will only consent if case emergent GTFs today OB stool r/o GI bleed monitor H&H, prn transfusions bowel regime ppi BID + carafate fu labs Subjective Allergies: Coded Allergies: NO KNOWN DRUG ALLERGIES (Verified Allergy, Unknown, 09/11/16) Subjective More calm today tolerating TF Objective Last 24 Hour Vital Signs Date Time Temp Pulse Resp B/P (MAP) Pulse Ox O2 Delivery O2 Flow Rate FiO2 10/21/17 16:41 85 18 40 10/21/17 16:00 84 10/21/17 16:00 98.0 84 20 139/82 100 Mechanical Ventilator 84 84 10/21/17 16:00 40 10/21/17 15:22 88 18 40 10/21/17 14:14 98.1 92 20 150/74 100 Mechanical Ventilator 92 92 10/21/17 14:00 40 10/21/17 13:24 93 18 40 10/21/17 12:00 98.1 92 20 150/74 100 Mechanical Ventilator 92 92 10/21/17 12:00 92 10/21/17 10:41 81 18 40 10/21/17 09:00 102 142/78 10/21/17 08:37 92 25 40 10/21/17 08:00 40 10/21/17 08:00 98.1 102 16 132/71 100 Mechanical Ventilator 40 102 102 10/21/17 08:00 102 10/21/17 06:45 91 18 40 10/21/17 05:41 97 26 30 10/21/17 04:00 98 10/21/17 04:00 40 10/21/17 04:00 97.7 84 22 140/88 100 Mechanical Ventilator 40 10/21/17 03:49 87 20 30 10/21/17 01:34 85 22 30 10/21/17 00:00 97.9 84 22 128/70 100 Mechanical Ventilator 40 10/21/17 00:00 40 10/21/17 00:00 84 10/20/17 23:41 82 20 30 10/20/17 21:10 78 21 30 10/20/17 20:00 97.6 75 22 138/72 100 Mechanical Ventilator 40 10/20/17 20:00 88 10/20/17 20:00 40 10/20/17 19:20 83 18 30 Intake and Output 10/20/17 10/21/17 19:00 07:00 Intake Total 1220 ml 450 ml Output Total 302 ml 200 ml Balance 918 ml 250 ml Free Water 100 ml IV Total 900 ml Tube Feeding 40 ml 290 ml Other 280 ml 60 ml Output Urine Total 300 ml 200 ml Stool Total 2 ml # Voids 2 # Bowel Movements 2 4 Laboratory Tests 10/21/17 04:00: White Blood Count 12.1H, Red Blood Count 3.27L, Hemoglobin 8.9L, Hematocrit 27.4L, Mean Corpuscular Volume 84, Mean Corpuscular Hemoglobin 27.1, Mean Corpuscular Hemoglobin Concent 32.4, Red Cell Distribution Width 16.2H, Platelet Count 458H, Mean Platelet Volume 6.9, Neutrophils (%) (Auto) 57.2, Lymphocytes (%) (Auto) 17.0L, Monocytes (%) (Auto) 12.1H, Eosinophils (%) (Auto ) 13.0H, Basophils (%) (Auto) 0.7, Sodium Level 133L, Potassium Level 3.4L, Chloride Level 100, Carbon Dioxide Level 19L, Anion Gap 14, Blood Urea Nitrogen 16, Creatinine 1.2, Estimat Glomerular Filtration Rate > 60, Glucose Level 99, Calcium Level 9.1, Phosphorus Level 2.7, Magnesium Level 1.6L, Total Bilirubin 0.3, Aspartate Amino Transf (AST/SGOT) 27, Alanine Aminotransferase (ALT/SGPT) 22, Alkaline Phosphatase 108, Total Protein 7.9, Albumin 2.8L, Globulin 5.1, Albumin/Globulin Ratio 0.5L Height (Feet): 5 Height (Inches): 10.00 Weight (Pounds): 126 Objective WDWN WM NCAT s/p trach coarse BS RR soft ND, (+) GT contracted IVETH FAN Oct 21, 2017 18:57
[2017-10-21] MEDS: Dyna-Hex 2% Top Sol 2oz TOPIC SCH (20:29)
[2017-10-22] VITALS: BP 111/57
[2017-10-22 04:00] VITALS: BP 130/87
[2017-10-22 04:08] LABS: BASOPHILS % (AUTO) 0.8 % (0.0-2.0); EOSINOPHILS % (AUTO) 19.1 % (0.0-3.0); HEMATOCRIT 24.8 % (42.0-52.0); HEMOGLOBIN 8.1 G/DL (14.2-18.0); MEAN CORPUSCULAR VOLUME 84 FL (80-99); MONOCYTES % (AUTO) 11.5 % (1.0-10.0); NEUTROPHILS % (AUTO) 51.6 % (45.0-75.0); PLATELET COUNT 339 K/UL (150-450); RED BLOOD COUNT 2.96 M/UL (4.70-6.10); RED CELL DISTRIBUTION WIDTH 16.2 % (11.6-14.8); WHITE BLOOD COUNT 10.5 K/UL (4.8-10.8)
[2017-10-22 04:47] LABS: ALANINE AMINOTRANSFERASE 22 U/L (12-78); ALBUMIN 2.7 G/DL (3.4-5.0); ALBUMIN/GLOBULIN RATIO 0.5 (1.0-2.7); ALKALINE PHOSPHATASE 100 U/L (46-116); ANION GAP 10 mmol/L (5-15); ASPARTATE AMINO TRANSFERASE 25 U/L (15-37); BILIRUBIN,TOTAL 0.3 MG/DL (0.2-1.0); BLOOD UREA NITROGEN 10 mg/dL (7-18); CALCIUM 8.9 MG/DL (8.5-10.1); CARBON DIOXIDE 22 MMOL/L (21-32); CHLORIDE 103 MMOL/L (98-107); CREATININE 0.9 MG/DL (0.55-1.30); PHOSPHORUS 1.7 MG/DL (2.5-4.9); POTASSIUM 3.4 MMOL/L (3.5-5.1); SODIUM 135 MMOL/L (136-145)
[2017-10-22] MEDS: DiphenhydrAMINE 50mg/ml Inj IVP PRN (06:39)
[2017-10-22 08:00] VITALS: BP 127/81
[2017-10-22] MEDS: Sucralfate 1gm tab ORAL SCH ×4 (09:39→20:53)
[2017-10-22] MEDS: Pantoprazole Inj IVP SCH ×2 (09:39→20:53)
--- NOTE | 2017-10-22 10:42 | Pulmonolgy Critical Care Note ---
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 with: nurses, consultants, family preservation caseworkermanager logistic - Objective Last 24 Hour Vital Signs Date Time Temp Pulse Resp B/P (MAP) Pulse Ox O2 Delivery O2 Flow Rate FiO2 10/22/17 10:37 74 18 40 10/22/17 09:41 75 127/81 10/22/17 09:00 77 17 40 10/22/17 08:00 98.6 75 18 127/81 100 10/22/17 07:31 81 20 40 10/22/17 05:16 77 18 40 10/22/17 04:00 40 10/22/17 04:00 105 10/22/17 04:00 98.6 88 12 130/87 100 Mechanical Ventilator 10/22/17 03:22 90 21 40 10/22/17 01:20 88 18 40 10/22/17 00:00 83 10/22/17 00:00 98.1 71 18 111/57 100 Mechanical Ventilator 10/22/17 00:00 40 10/21/17 22:58 82 19 40 10/21/17 21:17 85 20 40 10/21/17 20:00 98.5 75 18 139/64 100 Mechanical Ventilator 10/21/17 20:00 85 10/21/17 20:00 40 10/21/17 19:16 74 18 40 10/21/17 16:41 85 18 40 10/21/17 16:00 84 10/21/17 16:00 98.0 84 20 139/82 100 Mechanical Ventilator 84 84 10/21/17 16:00 40 10/21/17 15:22 88 18 40 10/21/17 14:14 98.1 92 20 150/74 100 Mechanical Ventilator 92 92 10/21/17 14:00 40 10/21/17 13:24 93 18 40 2/11/18 12:00 98.1 92 20 150/74 100 Mechanical Ventilator 92 92 10/21/17 12:00 92 10/21/17 10:41 81 18 40 Status: awake Condition: critical HEENT: atraumatic Neck: full ROM Lungs: chest wall tender Heart: HR/BP stable, regular Abdomen: non-tender, feeding tube Extremities: edema Decubiti: location Critical Care - Subjective ROS Limited/Unobtainable: No ICU Day: 6 Condition: critical, grave EKG Rhythm: Sinus Rhythm FI02: 40 Vent Support Breath Rate: 16 Vent Support Mode: AC Vent Tidal Volume: 600 Sputum Amount: Moderate PEEP: 5.0 PIP: 21 Fluids: 1/2 NS 75 cc/hour Tube Feeding Amount: 30 I&O: Intake and Output 10/21/17 10/22/17 19:00 07:00 Intake Total 380 ml 973 ml Output Total 100 ml 1050 ml Balance 280 ml -77 ml Free Water 300 ml 100 ml IV Total 543 ml Tube Feeding 80 ml 330 ml Output Urine Total 100 ml 1000 ml Stool Total 50 ml # Bowel Movements 8 CXR: no change Labs: Laboratory Tests Test 10/22/17 03:55 White Blood Count 10.5 K/UL (4.8-10.8) Red Blood Count 2.96 M/UL (4.70-6.10) L Hemoglobin 8.1 G/DL (14.2-18.0) L Hematocrit 24.8 % (42.0-52.0) L Mean Corpuscular Volume 84 FL (80-99) Mean Corpuscular Hemoglobin 27.3 PG (27.0-31.0) Mean Corpuscular Hemoglobin Concent 32.7 G/DL (32.0-36.0) Red Cell Distribution Width 16.2 % (11.6-14.8) H Platelet Count 339 K/UL (150-450) Mean Platelet Volume 7.2 FL (6.5-10.1) Neutrophils (%) (Auto) 51.6 % (45.0-75.0) Lymphocytes (%) (Auto) 17.0 % (20.0-45.0) L Monocytes (%) (Auto) 11.5 % (1.0-10.0) H Eosinophils (%) (Auto) 19.1 % (0.0-3.0) H Basophils (%) (Auto) 0.8 % (0.0-2.0) Sodium Level 135 MMOL/L (136-145) L Potassium Level 3.4 MMOL/L (3.5-5.1) L Chloride Level 103 MMOL/L (98-107) Carbon Dioxide Level 22 MMOL/L (21-32) Anion Gap 10 mmol/L (5-15) Blood Urea Nitrogen 10 mg/dL (7-18) Creatinine 0.9 MG/DL (0.55-1.30) Estimat Glomerular Filtration Rate > 60 mL/min (>60) Glucose Level 127 MG/DL (74-106) H Calcium Level 8.9 MG/DL (8.5-10.1) Phosphorus Level 1.7 MG/DL (2.5-4.9) L Magnesium Level 1.8 MG/DL (1.8-2.4) Total Bilirubin 0.3 MG/DL (0.2-1.0) Aspartate Amino Transf (AST/SGOT) 25 U/L (15-37) Alanine Aminotransferase (ALT/SGPT) 22 U/L (12-78) Alkaline Phosphatase 100 U/L (46-116) Total Protein 7.8 G/DL (6.4-8.2) Albumin 2.7 G/DL (3.4-5.0) L Globulin 5.1 g/dL Albumin/Globulin Ratio 0.5 (1.0-2.7) L MIKAYLA WILLOUGHBY Oct 22, 2017 10:42
--- NOTE | 2017-10-22 11:16 | GI Progress Note ---
Assessment/Plan Problems: (1) Dementia ICD Codes: F03.90 - Dementia SNOMED: 37725632 (2) Upper respiratory infection ICD Codes: J06.9 - Acute upper respiratory infection, unspecified SNOMED: 66190298 (3) Protein-calorie malnutrition, severe ICD Codes: E43 - Unspecified severe protein-calorie malnutrition SNOMED: 853379986 (4) Feeding by G-tube ICD Codes: Z93.1 - Gastrostomy status SNOMED: 077522169, 202558319 (5) Hypoalbuminemia ICD Codes: E88.09 - Other disorders of plasma-protein metabolism, not elsewhere classified SNOMED: 353374052 (6) Alzheimer's dementia ICD Codes: G30.9 - Alzheimer's disease, unspecified SNOMED: 81848881 (7) Upper GI bleed ICD Codes: K92.2 - Upper gastrointestinal hemorrhage SNOMED: 68022557 (8) Anemia ICD Codes: D64.9 - Anemia SNOMED: 603319258 (9) Iron deficiency ICD Codes: E61.1 - Iron deficiency SNOMED: 04967293 (10) Esophagitis ICD Codes: K20.9 - Esophagitis SNOMED: 36647872 Status: stable, unchanged Status Narrative Discussed with Dr. Wilson. Assessment/Plan EGD deferred >> conservator will only consent if case emergent GTFs per RD today OB stool r/o GI bleed monitor H&H, prn transfusions bowel regime ppi BID + carafate fu labs Subjective Subjective limited Objective Last 24 Hour Vital Signs Date Time Temp Pulse Resp B/P (MAP) Pulse Ox O2 Delivery O2 Flow Rate FiO2 10/22/17 10:37 74 18 40 10/22/17 09:41 75 127/81 10/22/17 09:00 77 17 40 10/22/17 08:00 98.6 75 18 127/81 100 10/22/17 07:31 81 20 40 10/22/17 05:16 77 18 40 10/22/17 04:00 40 10/22/17 04:00 105 10/22/17 04:00 98.6 88 12 130/87 100 Mechanical Ventilator 10/22/17 03:22 90 21 40 10/22/17 01:20 88 18 40 10/22/17 00:00 83 10/22/17 00:00 98.1 71 18 111/57 100 Mechanical Ventilator 10/22/17 00:00 40 10/21/17 22:58 82 19 40 10/21/17 21:17 85 20 40 10/21/17 20:00 98.5 75 18 139/64 100 Mechanical Ventilator 10/21/17 20:00 85 10/21/17 20:00 40 10/21/17 19:16 74 18 40 10/21/17 16:41 85 18 40 10/21/17 16:00 84 10/21/17 16:00 98.0 84 20 139/82 100 Mechanical Ventilator 84 84 10/21/17 16:00 40 10/21/17 15:22 88 18 40 10/21/17 14:14 98.1 92 20 150/74 100 Mechanical Ventilator 92 92 10/21/17 14:00 40 10/21/17 13:24 93 18 40 10/21/17 12:00 98.1 92 20 150/74 100 Mechanical Ventilator 92 92 10/21/17 12:00 92 Intake and Output 10/21/17 10/22/17 19:00 07:00 Intake Total 380 ml 973 ml Output Total 100 ml 1050 ml Balance 280 ml -77 ml Free Water 300 ml 100 ml IV Total 543 ml Tube Feeding 80 ml 330 ml Output Urine Total 100 ml 1000 ml Stool Total 50 ml # Bowel Movements 8 Laboratory Tests Test 10/22/17 03:55 White Blood Count 10.5 K/UL (4.8-10.8) Red Blood Count 2.96 M/UL (4.70-6.10) L Hemoglobin 8.1 G/DL (14.2-18.0) L Hematocrit 24.8 % (42.0-52.0) L Mean Corpuscular Volume 84 FL (80-99) Mean Corpuscular Hemoglobin 27.3 PG (27.0-31.0) Mean Corpuscular Hemoglobin Concent 32.7 G/DL (32.0-36.0) Red Cell Distribution Width 16.2 % (11.6-14.8) H Platelet Count 339 K/UL (150-450) Mean Platelet Volume 7.2 FL (6.5-10.1) Neutrophils (%) (Auto) 51.6 % (45.0-75.0) Lymphocytes (%) (Auto) 17.0 % (20.0-45.0) L Monocytes (%) (Auto) 11.5 % (1.0-10.0) H Eosinophils (%) (Auto) 19.1 % (0.0-3.0) H Basophils (%) (Auto) 0.8 % (0.0-2.0) Sodium Level 135 MMOL/L (136-145) L Potassium Level 3.4 MMOL/L (3.5-5.1) L Chloride Level 103 MMOL/L (98-107) Carbon Dioxide Level 22 MMOL/L (21-32) Anion Gap 10 mmol/L (5-15) Blood Urea Nitrogen 10 mg/dL (7-18) Creatinine 0.9 MG/DL (0.55-1.30) Estimat Glomerular Filtration Rate > 60 mL/min (>60) Glucose Level 127 MG/DL (74-106) H Calcium Level 8.9 MG/DL (8.5-10.1) Phosphorus Level 1.7 MG/DL (2.5-4.9) L Magnesium Level 1.8 MG/DL (1.8-2.4) Total Bilirubin 0.3 MG/DL (0.2-1.0) Aspartate Amino Transf (AST/SGOT) 25 U/L (15-37) Alanine Aminotransferase (ALT/SGPT) 22 U/L (12-78) Alkaline Phosphatase 100 U/L (46-116) Total Protein 7.8 G/DL (6.4-8.2) Albumin 2.7 G/DL (3.4-5.0) L Globulin 5.1 g/dL Albumin/Globulin Ratio 0.5 (1.0-2.7) L Height (Feet): 5 Height (Inches): 10.00 Weight (Pounds): 126 Arabella Quesada N.P. Oct 22, 2017 11:16
--- NOTE | 2017-10-22 11:18 | Diagnostic Imaging Report ---
Indication: Dyspnea Comparison: 10/16/2017 A single view chest radiograph was obtained. Findings: New right-sided PICC line in place. The tip projects over the SVC. No change demonstrated otherwise. Heart size is stable. Tracheostomy again noted. IMPRESSION: PICC line in good position.
[2017-10-22 12:00] VITALS: BP 130/83
[2017-10-22 16:00] VITALS: BP 126/69
[2017-10-22 20:00] VITALS: BP 109/67
[2017-10-22] MEDS: Dyna-Hex 2% Top Sol 2oz TOPIC SCH (20:53)
[2017-10-23] VITALS: BP 127/70
[2017-10-23 04:00] VITALS: BP 141/63
[2017-10-23 05:31] LABS: ANION GAP 6 mmol/L (5-15); BASOPHILS % (AUTO) 0.4 % (0.0-2.0); BLOOD UREA NITROGEN 9 mg/dL (7-18); CALCIUM 8.8 MG/DL (8.5-10.1); CARBON DIOXIDE 25 MMOL/L (21-32); CHLORIDE 104 MMOL/L (98-107); CREATININE 0.9 MG/DL (0.55-1.30); HEMATOCRIT 25.7 % (42.0-52.0); HEMOGLOBIN 8.2 G/DL (14.2-18.0); LYMPHOCYTES % (AUTO) 11.7 % (20.0-45.0); MEAN CORPUSCULAR VOLUME 85 FL (80-99); MONOCYTES % (AUTO) 8.5 % (1.0-10.0); NEUTROPHILS % (AUTO) 64.5 % (45.0-75.0); PLATELET COUNT 357 K/UL (150-450); POTASSIUM 3.5 MMOL/L (3.5-5.1); RED BLOOD COUNT 3.04 M/UL (4.70-6.10); RED CELL DISTRIBUTION WIDTH 16.4 % (11.6-14.8); SODIUM 135 MMOL/L (136-145)
[2017-10-23 08:00] VITALS: BP 121/53
[2017-10-23] MEDS: Sucralfate 1gm tab ORAL SCH ×4 (08:55→20:42)
[2017-10-23] MEDS: Pantoprazole Inj IVP SCH ×2 (08:56→20:42)
--- NOTE | 2017-10-23 10:02 | Pulmonolgy Critical Care Note ---
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, 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 with: nurses, consultants, rifle case repairerglobal implementation manager - Objective Last 24 Hour Vital Signs Date Time Temp Pulse Resp B/P (MAP) Pulse Ox O2 Delivery O2 Flow Rate FiO2 10/23/17 08:56 70 121/53 10/23/17 08:00 98.2 70 16 121/53 100 10/23/17 08:00 40 10/23/17 08:00 71 10/23/17 07:02 67 19 40 10/23/17 04:57 62 16 40 10/23/17 04:00 40 10/23/17 04:00 98.5 66 17 141/63 99 10/23/17 04:00 66 10/23/17 03:10 92 17 40 10/23/17 01:06 65 17 40 10/23/17 00:00 73 10/23/17 00:00 98.8 82 17 127/70 100 10/22/17 23:18 91 19 40 10/22/17 20:42 68 17 40 10/22/17 20:00 40 10/22/17 20:00 62 10/22/17 20:00 97.9 65 16 109/67 100 10/22/17 18:47 63 16 40 10/22/17 17:06 64 16 40 10/22/17 16:00 40 10/22/17 16:00 98.6 78 23 126/69 100 10/22/17 16:00 96 10/22/17 14:45 70 17 40 10/22/17 12:47 69 17 40 10/22/17 12:00 40 10/22/17 12:00 98.3 78 18 130/83 100 10/22/17 12:00 68 2/12/18 10:37 74 18 40 Condition: critical HEENT: atraumatic Lungs: chest wall tender Heart: HR/BP unstable Abdomen: soft, active bowel sounds, feeding tube Critical Care - Subjective ROS Limited/Unobtainable: Yes Interval Events: wbc going up. Condition: critical FI02: 40 Vent Support Breath Rate: 16 Vent Support Mode: AC Vent Tidal Volume: 600 Sputum Amount: Moderate PEEP: 5.0 PIP: 23 Tube Feeding Amount: 50 I&O: Intake and Output 10/22/17 10/23/17 19:00 07:00 Intake Total 1965 ml 1375 ml Output Total 600 ml 700 ml Balance 1365 ml 675 ml Free Water 200 ml 100 ml IV Total 825 ml 625 ml Tube Feeding 600 ml 550 ml Other 340 ml 100 ml Output Urine Total 600 ml 700 ml Stool Total 0 ml CXR: no new changes Labs: Laboratory Tests Test 10/23/17 04:00 White Blood Count 15.0 K/UL (4.8-10.8) H Red Blood Count 3.04 M/UL (4.70-6.10) L Hemoglobin 8.2 G/DL (14.2-18.0) L Hematocrit 25.7 % (42.0-52.0) L Mean Corpuscular Volume 85 FL (80-99) Mean Corpuscular Hemoglobin 26.9 PG (27.0-31.0) L Mean Corpuscular Hemoglobin Concent 31.8 G/DL (32.0-36.0) L Red Cell Distribution Width 16.4 % (11.6-14.8) H Platelet Count 357 K/UL (150-450) Mean Platelet Volume 7.3 FL (6.5-10.1) Neutrophils (%) (Auto) 64.5 % (45.0-75.0) Lymphocytes (%) (Auto) 11.7 % (20.0-45.0) L Monocytes (%) (Auto) 8.5 % (1.0-10.0) Eosinophils (%) (Auto) 15.0 % (0.0-3.0) H Basophils (%) (Auto) 0.4 % (0.0-2.0) Sodium Level 135 MMOL/L (136-145) L Potassium Level 3.5 MMOL/L (3.5-5.1) Chloride Level 104 MMOL/L (98-107) Carbon Dioxide Level 25 MMOL/L (21-32) Anion Gap 6 mmol/L (5-15) Blood Urea Nitrogen 9 mg/dL (7-18) Creatinine 0.9 MG/DL (0.55-1.30) Estimat Glomerular Filtration Rate > 60 mL/min (>60) Glucose Level 145 MG/DL (74-106) H Calcium Level 8.8 MG/DL (8.5-10.1) MIKAYLA WILLOUGHBY Oct 23, 2017 10:02
[2017-10-23] MEDS ORDERED: 1/2 NS 1000ml IV ONE (11:16)
[2017-10-23] MEDS ORDERED: Sterile Water Irrig 1000ml IRRIG ONE (11:16)
[2017-10-23 12:00] VITALS: BP 131/63
--- NOTE | 2017-10-23 12:30 | Infectious Diseases Prog Note ---
Assessment/Plan Assessment/Plan Assessment: UGIB -hx of UGIB, severe esophagitis s/p multiple EGDs Leukocytosis, -CXR: No acute process -influenza neg Rash-suspicious for Scabies Acute on chronic anemia chronic vent/trach s/p peg bed bound malnutrition SNF resident Plan: Monitor off abx - 10/17 SP IV Vanco and Cefepime -Permethrin cream and ivermectin x1 10/17 next treatment 10/24 -contact precautions -f/u cx ( Bl ) -Monitor CBC/BMP, temperatures -ETT/Trach care Subjective Allergies: Coded Allergies: NO KNOWN DRUG ALLERGIES (Verified Allergy, Unknown, 09/11/16) Subjective Afebrile Objective Vital Signs Last 24 Hour Vital Signs Date Time Temp Pulse Resp B/P (MAP) Pulse Ox O2 Delivery O2 Flow Rate FiO2 10/23/17 12:00 40 10/23/17 11:11 68 18 40 10/23/17 10:09 74 21 40 10/23/17 08:56 70 121/53 10/23/17 08:00 98.2 70 16 121/53 100 10/23/17 08:00 40 10/23/17 08:00 71 10/23/17 07:02 67 19 40 10/23/17 04:57 62 16 40 10/23/17 04:00 40 10/23/17 04:00 98.5 66 17 141/63 99 10/23/17 04:00 66 10/23/17 03:10 92 17 40 10/23/17 01:06 65 17 40 10/23/17 00:00 73 10/23/17 00:00 98.8 82 17 127/70 100 10/22/17 23:18 91 19 40 10/22/17 20:42 68 17 40 10/22/17 20:00 40 10/22/17 20:00 62 10/22/17 20:00 97.9 65 16 109/67 100 10/22/17 18:47 63 16 40 10/22/17 17:06 64 16 40 10/22/17 16:00 40 10/22/17 16:00 98.6 78 23 126/69 100 10/22/17 16:00 96 10/22/17 14:45 70 17 40 10/22/17 12:47 69 17 40 Height (Feet): 5 Height (Inches): 10.00 Weight (Pounds): 126 HEENT: anicteric Respiratory/Chest: no respiratory distress Cardiovascular: normal rate Abdomen: soft, non tender Laboratory Tests Test 10/23/17 04:00 White Blood Count 15.0 K/UL (4.8-10.8) H Red Blood Count 3.04 M/UL (4.70-6.10) L Hemoglobin 8.2 G/DL (14.2-18.0) L Hematocrit 25.7 % (42.0-52.0) L Mean Corpuscular Volume 85 FL (80-99) Mean Corpuscular Hemoglobin 26.9 PG (27.0-31.0) L Mean Corpuscular Hemoglobin Concent 31.8 G/DL (32.0-36.0) L Red Cell Distribution Width 16.4 % (11.6-14.8) H Platelet Count 357 K/UL (150-450) Mean Platelet Volume 7.3 FL (6.5-10.1) Neutrophils (%) (Auto) 64.5 % (45.0-75.0) Lymphocytes (%) (Auto) 11.7 % (20.0-45.0) L Monocytes (%) (Auto) 8.5 % (1.0-10.0) Eosinophils (%) (Auto) 15.0 % (0.0-3.0) H Basophils (%) (Auto) 0.4 % (0.0-2.0) Sodium Level 135 MMOL/L (136-145) L Potassium Level 3.5 MMOL/L (3.5-5.1) Chloride Level 104 MMOL/L (98-107) Carbon Dioxide Level 25 MMOL/L (21-32) Anion Gap 6 mmol/L (5-15) Blood Urea Nitrogen 9 mg/dL (7-18) Creatinine 0.9 MG/DL (0.55-1.30) Estimat Glomerular Filtration Rate > 60 mL/min (>60) Glucose Level 145 MG/DL (74-106) H Calcium Level 8.8 MG/DL (8.5-10.1) Current Medications Medications (Trade) Dose Ordered Sig/Wanda Route PRN Reason Start Time Stop Time Status Last Admin Dose Admin Acetaminophen (Tylenol) 650 mg Q4H PRN ORAL FEVER (temp>100.5F) 10/16/17 19:30 11/15/17 19:29 Amlodipine Besylate (Norvasc) 2.5 mg DAILY ORAL 10/17/17 09:00 11/16/17 08:59 10/23/17 08:56 Chlorhexidine Gluconate (Jasmin-Hex 2%) 1 applic Q24H TOPIC 10/18/17 20:00 11/17/17 19:59 10/22/17 20:53 Dextrose (Dextrose 50%) STAT PRN IV Hypoglycemia 10/16/17 19:30 11/15/17 19:29 Diphenhydramine HCl (Benadryl) 25 mg Q6H PRN IVP Itching 10/18/17 19:00 11/17/17 18:59 10/22/17 06:39 Levothyroxine Sodium (Synthroid) 50 mcg ACBREAKFAST GT 10/17/17 06:30 11/16/17 06:29 10/23/17 06:28 Lorazepam (Ativan 2mg/ml 1ml) 2 mg Q2H PRN IV For Anxiety 10/16/17 19:30 10/23/17 19:29 10/18/17 20:32 Morphine Sulfate (Morphine Sulfate) 4 mg Q4H PRN IVP Severe Pain (Pain Scale 7-10) 10/16/17 19:30 10/23/17 19:29 10/18/17 14:54 Ondansetron HCl (Zofran) 4 mg Q6H PRN IVP Nausea & Vomiting 10/16/17 19:30 11/15/17 19:29 Pantoprazole (Protonix) 40 mg EVERY 12 HOURS IVP 10/17/17 21:00 11/16/17 20:59 10/23/17 08:56 Polyethylene Glycol (Miralax) 17 gm DAILYPRN PRN ORAL Constipation 10/16/17 19:30 11/15/17 19:29 Sodium Chloride 1,000 ml @ 75 mls/hr [id number] IV 10/16/17 21:00 11/15/17 20:59 10/23/17 05:20 Sucralfate (Carafate) 1 gm FOUR TIMES A DAY ORAL 10/18/17 09:00 11/17/17 08:59 10/23/17 08:55 GLYNN BURGOS M.D. Oct 23, 2017 12:30
--- NOTE | 2017-10-23 12:34 | Infectious Diseases Prog Note ---
Assessment/Plan Assessment/Plan Assessment: UGIB -hx of UGIB, severe esophagitis s/p multiple EGDs Leukocytosis, ? etio Afebrile -CXR: No acute process -influenza neg Rash-suspicious for Scabies Diarrhea Ro C Diff PICC SP on 10/16 Acute on chronic anemia chronic vent/trach s/p peg bed bound malnutrition SNF resident Plan: Monitor off abx - 10/17 SP IV Vanco and Cefepime -Permethrin cream and ivermectin x1 10/17 next treatment 10/24 -contact precautions -panculture cx (, SP , Ur, Bl ) -Monitor CBC/B, MP, temperatures -ETT/Trach care - C Diff Subjective Constitutional: Denies: no symptoms, fever, chills, fatigue, anorexia, drenching sweats, other Allergies: Coded Allergies: NO KNOWN DRUG ALLERGIES (Verified Allergy, Unknown, 09/11/16) Subjective Afebrile Objective Vital Signs Last 24 Hour Vital Signs Date Time Temp Pulse Resp B/P (MAP) Pulse Ox O2 Delivery O2 Flow Rate FiO2 10/23/17 12:00 40 10/23/17 11:11 68 18 40 10/23/17 10:09 74 21 40 10/23/17 08:56 70 121/53 10/23/17 08:00 98.2 70 16 121/53 100 10/23/17 08:00 40 10/23/17 08:00 71 10/23/17 07:02 67 19 40 10/23/17 04:57 62 16 40 10/23/17 04:00 40 10/23/17 04:00 98.5 66 17 141/63 99 10/23/17 04:00 66 10/23/17 03:10 92 17 40 10/23/17 01:06 65 17 40 10/23/17 00:00 73 10/23/17 00:00 98.8 82 17 127/70 100 10/22/17 23:18 91 19 40 10/22/17 20:42 68 17 40 10/22/17 20:00 40 10/22/17 20:00 62 10/22/17 20:00 97.9 65 16 109/67 100 10/22/17 18:47 63 16 40 10/22/17 17:06 64 16 40 10/22/17 16:00 40 10/22/17 16:00 98.6 78 23 126/69 100 10/22/17 16:00 96 10/22/17 14:45 70 17 40 10/22/17 12:47 69 17 40 Height (Feet): 5 Height (Inches): 10.00 Weight (Pounds): 126 HEENT: anicteric Respiratory/Chest: no respiratory distress Cardiovascular: regular rhythm Abdomen: no organomegaly Laboratory Tests Test 10/23/17 04:00 White Blood Count 15.0 K/UL (4.8-10.8) H Red Blood Count 3.04 M/UL (4.70-6.10) L Hemoglobin 8.2 G/DL (14.2-18.0) L Hematocrit 25.7 % (42.0-52.0) L Mean Corpuscular Volume 85 FL (80-99) Mean Corpuscular Hemoglobin 26.9 PG (27.0-31.0) L Mean Corpuscular Hemoglobin Concent 31.8 G/DL (32.0-36.0) L Red Cell Distribution Width 16.4 % (11.6-14.8) H Platelet Count 357 K/UL (150-450) Mean Platelet Volume 7.3 FL (6.5-10.1) Neutrophils (%) (Auto) 64.5 % (45.0-75.0) Lymphocytes (%) (Auto) 11.7 % (20.0-45.0) L Monocytes (%) (Auto) 8.5 % (1.0-10.0) Eosinophils (%) (Auto) 15.0 % (0.0-3.0) H Basophils (%) (Auto) 0.4 % (0.0-2.0) Sodium Level 135 MMOL/L (136-145) L Potassium Level 3.5 MMOL/L (3.5-5.1) Chloride Level 104 MMOL/L (98-107) Carbon Dioxide Level 25 MMOL/L (21-32) Anion Gap 6 mmol/L (5-15) Blood Urea Nitrogen 9 mg/dL (7-18) Creatinine 0.9 MG/DL (0.55-1.30) Estimat Glomerular Filtration Rate > 60 mL/min (>60) Glucose Level 145 MG/DL (74-106) H Calcium Level 8.8 MG/DL (8.5-10.1) Current Medications Medications (Trade) Dose Ordered Sig/Wanda Route PRN Reason Start Time Stop Time Status Last Admin Dose Admin Acetaminophen (Tylenol) 650 mg Q4H PRN ORAL FEVER (temp>100.5F) 10/16/17 19:30 11/15/17 19:29 Amlodipine Besylate (Norvasc) 2.5 mg DAILY ORAL 10/17/17 09:00 11/16/17 08:59 10/23/17 08:56 Chlorhexidine Gluconate (Jasmin-Hex 2%) 1 applic Q24H TOPIC 10/18/17 20:00 11/17/17 19:59 10/22/17 20:53 Dextrose (Dextrose 50%) STAT PRN IV Hypoglycemia 10/16/17 19:30 11/15/17 19:29 Diphenhydramine HCl (Benadryl) 25 mg Q6H PRN IVP Itching 10/18/17 19:00 11/17/17 18:59 10/22/17 06:39 Levothyroxine Sodium (Synthroid) 50 mcg ACBREAKFAST GT 10/17/17 06:30 11/16/17 06:29 10/23/17 06:28 Lorazepam (Ativan 2mg/ml 1ml) 2 mg Q2H PRN IV For Anxiety 10/16/17 19:30 10/23/17 19:29 10/18/17 20:32 Morphine Sulfate (Morphine Sulfate) 4 mg Q4H PRN IVP Severe Pain (Pain Scale 7-10) 10/16/17 19:30 10/23/17 19:29 10/18/17 14:54 Ondansetron HCl (Zofran) 4 mg Q6H PRN IVP Nausea & Vomiting 10/16/17 19:30 11/15/17 19:29 Pantoprazole (Protonix) 40 mg EVERY 12 HOURS IVP 10/17/17 21:00 11/16/17 20:59 10/23/17 08:56 Polyethylene Glycol (Miralax) 17 gm DAILYPRN PRN ORAL Constipation 10/16/17 19:30 11/15/17 19:29 Sodium Chloride 1,000 ml @ 75 mls/hr [id number] IV 10/16/17 21:00 11/15/17 20:59 10/23/17 05:20 Sucralfate (Carafate) 1 gm FOUR TIMES A DAY ORAL 10/18/17 09:00 11/17/17 08:59 10/23/17 08:55 GLYNN BURGOS M.D. Oct 23, 2017 12:34
--- NOTE | 2017-10-23 13:16 | Diagnostic Imaging Report ---
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 BILATERAL: Imaging reveals a patent deep venous system bilaterally. There is no evidence of thrombus within the common femoral, or tibial segments. The greater saphenous veins are also within normal limits. Doppler indicates normal spontaneous flow within these segments. The mid superficial femoral and popliteal veins were not well imaged, due to contractures, bilaterally.
[2017-10-23] MEDS: DiphenhydrAMINE 50mg/ml Inj IVP PRN ×2 (14:27→20:43)
--- NOTE | 2017-10-23 14:45 | GI Progress Note ---
Assessment/Plan Problems: (1) Dementia ICD Codes: F03.90 - Dementia SNOMED: 92199957 (2) Upper respiratory infection ICD Codes: J06.9 - Acute upper respiratory infection, unspecified SNOMED: 07768428 (3) Protein-calorie malnutrition, severe ICD Codes: E43 - Unspecified severe protein-calorie malnutrition SNOMED: 212413260 (4) Feeding by G-tube ICD Codes: Z93.1 - Gastrostomy status SNOMED: 335229168, 114966630 (5) Hypoalbuminemia ICD Codes: E88.09 - Other disorders of plasma-protein metabolism, not elsewhere classified SNOMED: 965935665 (6) Alzheimer's dementia ICD Codes: G30.9 - Alzheimer's disease, unspecified SNOMED: 14575757 (7) Upper GI bleed ICD Codes: K92.2 - Upper gastrointestinal hemorrhage SNOMED: 16876469 (8) Anemia ICD Codes: D64.9 - Anemia SNOMED: 277740347 (9) Iron deficiency ICD Codes: E61.1 - Iron deficiency SNOMED: 49810470 (10) Esophagitis ICD Codes: K20.9 - Esophagitis SNOMED: 97122943 Status: stable Status Narrative Discussed with Dr. Wilson. Assessment/Plan EGD deferred >> conservator will only consent if case emergent GTFs per RD today OB stool r/o GI bleed stable H&H, prn transfusions bowel regime ppi BID + carafate fu labs Subjective Subjective limited Objective Last 24 Hour Vital Signs Date Time Temp Pulse Resp B/P (MAP) Pulse Ox O2 Delivery O2 Flow Rate FiO2 10/23/17 13:29 84 16 40 10/23/17 12:00 72 10/23/17 12:00 98.2 85 18 131/63 100 10/23/17 12:00 40 10/23/17 11:11 68 18 40 10/23/17 10:09 74 21 40 10/23/17 08:56 70 121/53 10/23/17 08:00 98.2 70 16 121/53 100 10/23/17 08:00 40 10/23/17 08:00 71 10/23/17 07:02 67 19 40 10/23/17 04:57 62 16 40 10/23/17 04:00 40 10/23/17 04:00 98.5 66 17 141/63 99 10/23/17 04:00 66 10/23/17 03:10 92 17 40 10/23/17 01:06 65 17 40 10/23/17 00:00 73 10/23/17 00:00 98.8 82 17 127/70 100 10/22/17 23:18 91 19 40 10/22/17 20:42 68 17 40 10/22/17 20:00 40 10/22/17 20:00 62 10/22/17 20:00 97.9 65 16 109/67 100 10/22/17 18:47 63 16 40 10/22/17 17:06 64 16 40 10/22/17 16:00 40 10/22/17 16:00 98.6 78 23 126/69 100 10/22/17 16:00 96 10/22/17 14:45 70 17 40 Intake and Output 10/22/17 10/23/17 19:00 07:00 Intake Total 1965 ml 1450 ml Output Total 600 ml 700 ml Balance 1365 ml 750 ml Free Water 200 ml 100 ml IV Total 825 ml 700 ml Tube Feeding 600 ml 550 ml Other 340 ml 100 ml Output Urine Total 600 ml 700 ml Stool Total 0 ml Laboratory Tests Test 10/23/17 04:00 White Blood Count 15.0 K/UL (4.8-10.8) H Red Blood Count 3.04 M/UL (4.70-6.10) L Hemoglobin 8.2 G/DL (14.2-18.0) L Hematocrit 25.7 % (42.0-52.0) L Mean Corpuscular Volume 85 FL (80-99) Mean Corpuscular Hemoglobin 26.9 PG (27.0-31.0) L Mean Corpuscular Hemoglobin Concent 31.8 G/DL (32.0-36.0) L Red Cell Distribution Width 16.4 % (11.6-14.8) H Platelet Count 357 K/UL (150-450) Mean Platelet Volume 7.3 FL (6.5-10.1) Neutrophils (%) (Auto) 64.5 % (45.0-75.0) Lymphocytes (%) (Auto) 11.7 % (20.0-45.0) L Monocytes (%) (Auto) 8.5 % (1.0-10.0) Eosinophils (%) (Auto) 15.0 % (0.0-3.0) H Basophils (%) (Auto) 0.4 % (0.0-2.0) Sodium Level 135 MMOL/L (136-145) L Potassium Level 3.5 MMOL/L (3.5-5.1) Chloride Level 104 MMOL/L (98-107) Carbon Dioxide Level 25 MMOL/L (21-32) Anion Gap 6 mmol/L (5-15) Blood Urea Nitrogen 9 mg/dL (7-18) Creatinine 0.9 MG/DL (0.55-1.30) Estimat Glomerular Filtration Rate > 60 mL/min (>60) Glucose Level 145 MG/DL (74-106) H Calcium Level 8.8 MG/DL (8.5-10.1) Height (Feet): 5 Height (Inches): 10.00 Weight (Pounds): 126 General Appearance: alert Cardiovascular: normal rate Respiratory/Chest: other - mech vent Abdominal Exam: GT site - c/d/i Arabella Quesada N.P. Oct 23, 2017 14:45
[2017-10-23 16:00] VITALS: BP 133/73
[2017-10-23] MEDS: Eucerin Cream 15gm TOPIC SCH (18:09)
[2017-10-23 20:00] VITALS: BP 137/69
[2017-10-23] MEDS: Dyna-Hex 2% Top Sol 2oz TOPIC SCH (20:42)
[2017-10-24] VITALS: BP 132/69
[2017-10-24 04:00] VITALS: BP 136/73
[2017-10-24 06:05] LABS: CARBON DIOXIDE 25 MMOL/L (21-32); CHLORIDE 102 MMOL/L (98-107); POTASSIUM 3.4 MMOL/L (3.5-5.1); SODIUM 134 MMOL/L (136-145)
[2017-10-24 06:06] LABS: ALANINE AMINOTRANSFERASE 20 U/L (12-78); ANION GAP 7 mmol/L (5-15); ASPARTATE AMINO TRANSFERASE 17 U/L (15-37); BILIRUBIN,TOTAL 0.1 MG/DL (0.2-1.0); BLOOD UREA NITROGEN 9 mg/dL (7-18); CALCIUM 8.7 MG/DL (8.5-10.1); CREATININE 0.9 MG/DL (0.55-1.30); PHOSPHORUS 1.7 MG/DL (2.5-4.9)
[2017-10-24 06:07] LABS: ALBUMIN 2.6 G/DL (3.4-5.0); ALBUMIN/GLOBULIN RATIO 0.6 (1.0-2.7); ALKALINE PHOSPHATASE 106 U/L (46-116)
[2017-10-24 06:38] LABS: HEMOGLOBIN 8.2 G/DL (14.2-18.0); MEAN CORPUSCULAR VOLUME 85 FL (80-99); PLATELET COUNT 345 K/UL (150-450); RED BLOOD COUNT 3.05 M/UL (4.70-6.10); RED CELL DISTRIBUTION WIDTH 17.5 % (11.6-14.8); WHITE BLOOD COUNT 10.6 K/UL (4.8-10.8)
[2017-10-24 06:39] LABS: BASOPHILS % (AUTO) 0.5 % (0.0-2.0); EOSINOPHILS % (AUTO) 18.9 % (0.0-3.0); LYMPHOCYTES % (AUTO) 18.6 % (20.0-45.0); MONOCYTES % (AUTO) 8.7 % (1.0-10.0); NEUTROPHILS % (AUTO) 53.3 % (45.0-75.0)
[2017-10-24 08:00] VITALS: BP 133/73
[2017-10-24] MEDS: Pantoprazole Inj IVP SCH ×2 (09:14→20:06)
[2017-10-24] MEDS: Sucralfate 1gm tab ORAL SCH ×4 (09:14→20:06)
[2017-10-24] MEDS: DiphenhydrAMINE 50mg/ml Inj IVP PRN (09:15)
[2017-10-24] MEDS: Eucerin Cream 15gm TOPIC SCH ×3 (09:15→17:43)
[2017-10-24] MEDS ORDERED: SODIUM PHOSPHATE IVPB ONE (11:00)
[2017-10-24] MEDS ORDERED: D5W IVPB ONE (11:00)
--- NOTE | 2017-10-24 11:30 | Pulmonolgy Critical Care Note ---
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 - Objective Last 24 Hour Vital Signs Date Time Temp Pulse Resp B/P (MAP) Pulse Ox O2 Delivery O2 Flow Rate FiO2 10/24/17 11:01 109 17 40 10/24/17 09:15 80 133/73 10/24/17 09:02 115 24 40 10/24/17 08:00 40 10/24/17 08:00 91 10/24/17 08:00 98.2 95 16 133/73 100 10/24/17 07:25 107 21 40 10/24/17 05:19 87 20 40 10/24/17 04:00 98.2 81 16 136/73 100 10/24/17 04:00 40 10/24/17 03:30 87 20 40 10/24/17 03:18 81 10/24/17 01:15 71 16 40 10/24/17 00:00 97.5 75 19 132/69 100 10/24/17 00:00 40 10/23/17 23:55 69 16 40 10/23/17 23:25 74 10/23/17 21:25 74 18 40 10/23/17 20:00 97.6 82 16 137/69 100 10/23/17 20:00 40 10/23/17 19:52 75 19 40 10/23/17 19:10 91 10/23/17 17:03 76 16 40 10/23/17 16:00 40 10/23/17 16:00 84 10/23/17 16:00 98.0 71 17 133/73 96 10/23/17 15:48 84 18 40 10/23/17 13:29 84 16 40 10/23/17 12:00 72 10/23/17 12:00 98.2 85 18 131/63 100 10/23/17 12:00 40 Status: awake Condition: critical HEENT: atraumatic Neck: full ROM Heart: HR/BP stable, regular Abdomen: soft, active bowel sounds, feeding tube Micro: Microbiology Date/Time Source Procedure Growth Status 10/23/17 15:18 Urine,Clean Catch Urine Culture - Preliminary Resulted Critical Care - Subjective ROS Limited/Unobtainable: No EKG Rhythm: Sinus Rhythm FI02: 40 Vent Support Breath Rate: 16 Vent Support Mode: AC Vent Tidal Volume: 600 Sputum Amount: Moderate PEEP: 5.0 PIP: 20 Fluids: small Tube Feeding Amount: 50 I&O: Intake and Output 10/23/17 10/24/17 19:00 07:00 Intake Total 1575 ml 1055 ml Output Total 600 ml 500 ml Balance 975 ml 555 ml Free Water 150 ml 100 ml IV Total 825 ml 375 ml Tube Feeding 600 ml 550 ml Other 30 ml Output Urine Total 600 ml 500 ml CXR: no change Labs: Laboratory Tests Test 10/24/17 04:00 White Blood Count 10.6 K/UL (4.8-10.8) Red Blood Count 3.05 M/UL (4.70-6.10) L Hemoglobin 8.2 G/DL (14.2-18.0) L Hematocrit 26.0 % (42.0-52.0) L Mean Corpuscular Volume 85 FL (80-99) Mean Corpuscular Hemoglobin 26.7 PG (27.0-31.0) L Mean Corpuscular Hemoglobin Concent 31.4 G/DL (32.0-36.0) L Red Cell Distribution Width 17.5 % (11.6-14.8) H Platelet Count 345 K/UL (150-450) Mean Platelet Volume 7.2 FL (6.5-10.1) Neutrophils (%) (Auto) 53.3 % (45.0-75.0) Lymphocytes (%) (Auto) 18.6 % (20.0-45.0) L Monocytes (%) (Auto) 8.7 % (1.0-10.0) Eosinophils (%) (Auto) 18.9 % (0.0-3.0) H Basophils (%) (Auto) 0.5 % (0.0-2.0) Sodium Level 134 MMOL/L (136-145) L Potassium Level 3.4 MMOL/L (3.5-5.1) L Chloride Level 102 MMOL/L (98-107) Carbon Dioxide Level 25 MMOL/L (21-32) Anion Gap 7 mmol/L (5-15) Blood Urea Nitrogen 9 mg/dL (7-18) Creatinine 0.9 MG/DL (0.55-1.30) Estimat Glomerular Filtration Rate > 60 mL/min (>60) Glucose Level 123 MG/DL (74-106) H Calcium Level 8.7 MG/DL (8.5-10.1) Phosphorus Level 1.7 MG/DL (2.5-4.9) L Magnesium Level 1.5 MG/DL (1.5-2.4) Total Bilirubin 0.1 MG/DL (0.2-1.0) L Aspartate Amino Transf (AST/SGOT) 17 U/L (15-37) Alanine Aminotransferase (ALT/SGPT) 20 U/L (12-78) Alkaline Phosphatase 106 U/L (46-116) Total Protein 7.3 G/DL (6.4-8.2) Albumin 2.6 G/DL (3.4-5.0) L Globulin 4.7 g/dL Albumin/Globulin Ratio 0.6 (1.0-2.7) L MIKAYLA WILLOUGHBY Oct 24, 2017 11:30
[2017-10-24 11:57] VITALS: BP 132/72
--- NOTE | 2017-10-24 11:57 | GI Progress Note ---
Assessment/Plan Problems: (1) Dementia ICD Codes: F03.90 - Dementia SNOMED: 89918938 (2) Upper respiratory infection ICD Codes: J06.9 - Acute upper respiratory infection, unspecified SNOMED: 93963842 (3) Protein-calorie malnutrition, severe ICD Codes: E43 - Unspecified severe protein-calorie malnutrition SNOMED: 055390374 (4) Feeding by G-tube ICD Codes: Z93.1 - Gastrostomy status SNOMED: 572100517, 131327008 (5) Hypoalbuminemia ICD Codes: E88.09 - Other disorders of plasma-protein metabolism, not elsewhere classified SNOMED: 194431417 (6) Alzheimer's dementia ICD Codes: G30.9 - Alzheimer's disease, unspecified SNOMED: 01027710 (7) Upper GI bleed ICD Codes: K92.2 - Upper gastrointestinal hemorrhage SNOMED: 52254371 (8) Anemia ICD Codes: D64.9 - Anemia SNOMED: 022277761 (9) Iron deficiency ICD Codes: E61.1 - Iron deficiency SNOMED: 46265404 (10) Esophagitis ICD Codes: K20.9 - Esophagitis SNOMED: 84074833 Status: stable Status Narrative Discussed with Dr. Wilson. Assessment/Plan EGD deferred >> conservator will only consent if case emergent GTFs per RD today OB stool r/o GI bleed stable H&H, prn transfusions bowel regime ppi BID + carafate fu labs Subjective Subjective limited Objective Last 24 Hour Vital Signs Date Time Temp Pulse Resp B/P (MAP) Pulse Ox O2 Delivery O2 Flow Rate FiO2 10/24/17 11:01 109 17 40 10/24/17 09:15 80 133/73 10/24/17 09:02 115 24 40 10/24/17 08:00 40 10/24/17 08:00 91 10/24/17 08:00 98.2 95 16 133/73 100 10/24/17 07:25 107 21 40 10/24/17 05:19 87 20 40 10/24/17 04:00 98.2 81 16 136/73 100 10/24/17 04:00 40 10/24/17 03:30 87 20 40 10/24/17 03:18 81 10/24/17 01:15 71 16 40 2/14/18 00:00 97.5 75 19 132/69 100 10/24/17 00:00 40 10/23/17 23:55 69 16 40 10/23/17 23:25 74 10/23/17 21:25 74 18 40 10/23/17 20:00 97.6 82 16 137/69 100 10/23/17 20:00 40 10/23/17 19:52 75 19 40 10/23/17 19:10 91 10/23/17 17:03 76 16 40 10/23/17 16:00 40 10/23/17 16:00 84 10/23/17 16:00 98.0 71 17 133/73 96 10/23/17 15:48 84 18 40 10/23/17 13:29 84 16 40 10/23/17 12:00 72 10/23/17 12:00 98.2 85 18 131/63 100 10/23/17 12:00 40 Intake and Output 10/23/17 10/24/17 19:00 07:00 Intake Total 1575 ml 1180 ml Output Total 600 ml 500 ml Balance 975 ml 680 ml Free Water 150 ml 100 ml IV Total 825 ml 450 ml Tube Feeding 600 ml 600 ml Other 30 ml Output Urine Total 600 ml 500 ml Laboratory Tests Test 10/24/17 04:00 White Blood Count 10.6 K/UL (4.8-10.8) Red Blood Count 3.05 M/UL (4.70-6.10) L Hemoglobin 8.2 G/DL (14.2-18.0) L Hematocrit 26.0 % (42.0-52.0) L Mean Corpuscular Volume 85 FL (80-99) Mean Corpuscular Hemoglobin 26.7 PG (27.0-31.0) L Mean Corpuscular Hemoglobin Concent 31.4 G/DL (32.0-36.0) L Red Cell Distribution Width 17.5 % (11.6-14.8) H Platelet Count 345 K/UL (150-450) Mean Platelet Volume 7.2 FL (6.5-10.1) Neutrophils (%) (Auto) 53.3 % (45.0-75.0) Lymphocytes (%) (Auto) 18.6 % (20.0-45.0) L Monocytes (%) (Auto) 8.7 % (1.0-10.0) Eosinophils (%) (Auto) 18.9 % (0.0-3.0) H Basophils (%) (Auto) 0.5 % (0.0-2.0) Sodium Level 134 MMOL/L (136-145) L Potassium Level 3.4 MMOL/L (3.5-5.1) L Chloride Level 102 MMOL/L (98-107) Carbon Dioxide Level 25 MMOL/L (21-32) Anion Gap 7 mmol/L (5-15) Blood Urea Nitrogen 9 mg/dL (7-18) Creatinine 0.9 MG/DL (0.55-1.30) Estimat Glomerular Filtration Rate > 60 mL/min (>60) Glucose Level 123 MG/DL (74-106) H Calcium Level 8.7 MG/DL (8.5-10.1) Phosphorus Level 1.7 MG/DL (2.5-4.9) L Magnesium Level 1.5 MG/DL (1.5-2.4) Total Bilirubin 0.1 MG/DL (0.2-1.0) L Aspartate Amino Transf (AST/SGOT) 17 U/L (15-37) Alanine Aminotransferase (ALT/SGPT) 20 U/L (12-78) Alkaline Phosphatase 106 U/L (46-116) Total Protein 7.3 G/DL (6.4-8.2) Albumin 2.6 G/DL (3.4-5.0) L Globulin 4.7 g/dL Albumin/Globulin Ratio 0.6 (1.0-2.7) L Microbiology Date/Time Source Procedure Growth Status 10/23/17 15:18 Urine,Clean Catch Urine Culture - Preliminary Resulted Height (Feet): 5 Height (Inches): 10.00 Weight (Pounds): 126 General Appearance: WD/WN, no apparent distress, alert Cardiovascular: normal rate Respiratory/Chest: normal breath sounds, no respiratory distress Abdominal Exam: normal bowel sounds, non tender, soft Extremities: normal range of motion, non-tender Arabella Quesada N.P. Oct 24, 2017 11:57
--- NOTE | 2017-10-24 12:21 | Infectious Diseases Prog Note ---
Assessment/Plan Assessment/Plan Assessment: UGIB -hx of UGIB, severe esophagitis s/p multiple EGDs Leukocytosis, ? etio , improved off of Ab Rx 10/24 Afebrile -CXR: No acute process -influenza neg Rash-suspicious for Scabies Diarrhea Ro C Diff PICC SP on 10/16 Acute on chronic anemia chronic vent/trach s/p peg bed bound malnutrition SNF resident Plan: Monitor off abx - 10/17 SP IV Vanco and Cefepime -Permethrin cream and ivermectin x1 10/17 2nd treatment today 10/24 -contact precautions -panculture cx (, SP , Ur, Bl ) -Monitor CBC/B, MP, temperatures -ETT/Trach care - C Diff Subjective Allergies: Coded Allergies: NO KNOWN DRUG ALLERGIES (Verified Allergy, Unknown, 09/11/16) Subjective Afebrile Objective Vital Signs Last 24 Hour Vital Signs Date Time Temp Pulse Resp B/P (MAP) Pulse Ox O2 Delivery O2 Flow Rate FiO2 10/24/17 12:09 40 10/24/17 11:57 98.5 78 20 132/72 100 10/24/17 11:01 109 17 40 10/24/17 09:15 80 133/73 10/24/17 09:02 115 24 40 10/24/17 08:00 40 10/24/17 08:00 91 10/24/17 08:00 98.2 95 16 133/73 100 10/24/17 07:25 107 21 40 10/24/17 05:19 87 20 40 10/24/17 04:00 98.2 81 16 136/73 100 10/24/17 04:00 40 10/24/17 03:30 87 20 40 10/24/17 03:18 81 10/24/17 01:15 71 16 40 10/24/17 00:00 97.5 75 19 132/69 100 10/24/17 00:00 40 10/23/17 23:55 69 16 40 10/23/17 23:25 74 10/23/17 21:25 74 18 40 10/23/17 20:00 97.6 82 16 137/69 100 10/23/17 20:00 40 10/23/17 19:52 75 19 40 10/23/17 19:10 91 10/23/17 17:03 76 16 40 10/23/17 16:00 40 10/23/17 16:00 84 10/23/17 16:00 98.0 71 17 133/73 96 10/23/17 15:48 84 18 40 10/23/17 13:29 84 16 40 Height (Feet): 5 Height (Inches): 10.00 Weight (Pounds): 126 HEENT: atraumatic Respiratory/Chest: no accessory muscle use Cardiovascular: regularly irregular Abdomen: normal bowel sounds Microbiology Date/Time Source Procedure Growth Status 10/23/17 15:18 Urine,Clean Catch Urine Culture - Preliminary Resulted Laboratory Tests Test 10/24/17 04:00 White Blood Count 10.6 K/UL (4.8-10.8) Red Blood Count 3.05 M/UL (4.70-6.10) L Hemoglobin 8.2 G/DL (14.2-18.0) L Hematocrit 26.0 % (42.0-52.0) L Mean Corpuscular Volume 85 FL (80-99) Mean Corpuscular Hemoglobin 26.7 PG (27.0-31.0) L Mean Corpuscular Hemoglobin Concent 31.4 G/DL (32.0-36.0) L Red Cell Distribution Width 17.5 % (11.6-14.8) H Platelet Count 345 K/UL (150-450) Mean Platelet Volume 7.2 FL (6.5-10.1) Neutrophils (%) (Auto) 53.3 % (45.0-75.0) Lymphocytes (%) (Auto) 18.6 % (20.0-45.0) L Monocytes (%) (Auto) 8.7 % (1.0-10.0) Eosinophils (%) (Auto) 18.9 % (0.0-3.0) H Basophils (%) (Auto) 0.5 % (0.0-2.0) Sodium Level 134 MMOL/L (136-145) L Potassium Level 3.4 MMOL/L (3.5-5.1) L Chloride Level 102 MMOL/L (98-107) Carbon Dioxide Level 25 MMOL/L (21-32) Anion Gap 7 mmol/L (5-15) Blood Urea Nitrogen 9 mg/dL (7-18) Creatinine 0.9 MG/DL (0.55-1.30) Estimat Glomerular Filtration Rate > 60 mL/min (>60) Glucose Level 123 MG/DL (74-106) H Calcium Level 8.7 MG/DL (8.5-10.1) Phosphorus Level 1.7 MG/DL (2.5-4.9) L Magnesium Level 1.5 MG/DL (1.5-2.4) Total Bilirubin 0.1 MG/DL (0.2-1.0) L Aspartate Amino Transf (AST/SGOT) 17 U/L (15-37) Alanine Aminotransferase (ALT/SGPT) 20 U/L (12-78) Alkaline Phosphatase 106 U/L (46-116) Total Protein 7.3 G/DL (6.4-8.2) Albumin 2.6 G/DL (3.4-5.0) L Globulin 4.7 g/dL Albumin/Globulin Ratio 0.6 (1.0-2.7) L Current Medications Medications (Trade) Dose Ordered Sig/Wanda Route PRN Reason Start Time Stop Time Status Last Admin Dose Admin Acetaminophen (Tylenol) 650 mg Q4H PRN ORAL FEVER (temp>100.5F) 10/16/17 19:30 11/15/17 19:29 Amlodipine Besylate (Norvasc) 2.5 mg DAILY ORAL 10/17/17 09:00 11/16/17 08:59 10/24/17 09:15 Chlorhexidine Gluconate (Jasmin-Hex 2%) 1 applic Q24H TOPIC 10/18/17 20:00 11/17/17 19:59 10/23/17 20:42 Clotrimazole (Lotrimin) 1 applic EVERY 12 HOURS TOPIC 10/23/17 15:00 11/22/17 14:59 10/24/17 09:15 Dextrose (Dextrose 50%) STAT PRN IV Hypoglycemia 10/16/17 19:30 11/15/17 19:29 Diphenhydramine HCl (Benadryl) 25 mg Q6H PRN IVP Itching 10/18/17 19:00 11/17/17 18:59 10/24/17 09:15 Levothyroxine Sodium (Synthroid) 50 mcg ACBREAKFAST GT 10/17/17 06:30 11/16/17 06:29 10/24/17 06:35 Multi-Ingredient Ointment (Eucerin) 1 applic THREE TIMES A DAY TOPIC 10/23/17 18:00 11/22/17 17:59 10/24/17 09:15 Ondansetron HCl (Zofran) 4 mg Q6H PRN IVP Nausea & Vomiting 10/16/17 19:30 11/15/17 19:29 Pantoprazole (Protonix) 40 mg EVERY 12 HOURS IVP 10/17/17 21:00 11/16/17 20:59 10/24/17 09:14 Polyethylene Glycol (Miralax) 17 gm DAILYPRN PRN ORAL Constipation 10/16/17 19:30 11/15/17 19:29 Sodium Chloride 1,000 ml @ 75 mls/hr [id number] IV 10/16/17 21:00 11/15/17 20:59 10/24/17 02:08 Sodium Phosphate 30 mm/Dextrose 285 ml @ 47.5 mls/hr ONCE ONCE IVPB 10/24/17 11:00 10/24/17 16:59 10/24/17 12:02 Sucralfate (Carafate) 1 gm FOUR TIMES A DAY ORAL 10/18/17 09:00 11/17/17 08:59 10/24/17 09:14 GLYNN BURGOS M.D. Oct 24, 2017 12:21
[2017-10-24] MEDS ORDERED: HydrOXYzine 50mg cap GT PRN (14:45)
[2017-10-24] MEDS ORDERED: DiphenhydrAMINE 50mg/ml Inj IVP PRN (15:00)
[2017-10-24 16:00] VITALS: BP 122/65
[2017-10-24] MEDS: Dyna-Hex 2% Top Sol 2oz TOPIC SCH (19:45)
[2017-10-24 20:00] VITALS: BP 129/64
[2017-10-25] VITALS: BP 134/68
[2017-10-25 04:00] VITALS: BP 143/85
[2017-10-25 04:48] LABS: HEMATOCRIT 23.8 % (42.0-52.0); HEMOGLOBIN 7.5 G/DL (14.2-18.0); MEAN CORPUSCULAR VOLUME 85 FL (80-99); PLATELET COUNT 310 K/UL (150-450); RED BLOOD COUNT 2.82 M/UL (4.70-6.10); RED CELL DISTRIBUTION WIDTH 17.1 % (11.6-14.8); WHITE BLOOD COUNT 9.2 K/UL (4.8-10.8)
[2017-10-25 05:00] LABS: ALANINE AMINOTRANSFERASE 16 U/L (12-78); ALBUMIN 2.3 G/DL (3.4-5.0); ALBUMIN/GLOBULIN RATIO 0.5 (1.0-2.7); ALKALINE PHOSPHATASE 98 U/L (46-116); ANION GAP 4 mmol/L (5-15); ASPARTATE AMINO TRANSFERASE 15 U/L (15-37); BILIRUBIN,TOTAL 0.1 MG/DL (0.2-1.0); BLOOD UREA NITROGEN 10 mg/dL (7-18); CALCIUM 8.2 MG/DL (8.5-10.1); CARBON DIOXIDE 27 MMOL/L (21-32); CHLORIDE 98 MMOL/L (98-107); CREATININE 0.8 MG/DL (0.55-1.30); PHOSPHORUS 2.6 MG/DL (2.5-4.9); POTASSIUM 3.3 MMOL/L (3.5-5.1); SODIUM 129 MMOL/L (136-145)
[2017-10-25 08:00] VITALS: BP 139/88
[2017-10-25] MEDS: Sucralfate 1gm tab ORAL SCH ×3 (09:16→17:45)
[2017-10-25] MEDS: Pantoprazole Inj IVP SCH (09:16)
[2017-10-25] MEDS: Eucerin Cream 15gm TOPIC SCH ×3 (09:17→17:45)
--- NOTE | 2017-10-25 10:39 | GI Progress Note ---
Assessment/Plan Problems: (1) Dementia ICD Codes: F03.90 - Dementia SNOMED: 75498790 (2) Upper respiratory infection ICD Codes: J06.9 - Acute upper respiratory infection, unspecified SNOMED: 50312067 (3) Protein-calorie malnutrition, severe ICD Codes: E43 - Unspecified severe protein-calorie malnutrition SNOMED: 421899240 (4) Feeding by G-tube ICD Codes: Z93.1 - Gastrostomy status SNOMED: 881412558, 309715028 (5) Hypoalbuminemia ICD Codes: E88.09 - Other disorders of plasma-protein metabolism, not elsewhere classified SNOMED: 417406034 (6) Alzheimer's dementia ICD Codes: G30.9 - Alzheimer's disease, unspecified SNOMED: 12207162 (7) Upper GI bleed ICD Codes: K92.2 - Upper gastrointestinal hemorrhage SNOMED: 15309191 (8) Anemia ICD Codes: D64.9 - Anemia SNOMED: 159760867 (9) Iron deficiency ICD Codes: E61.1 - Iron deficiency SNOMED: 46461663 (10) Esophagitis ICD Codes: K20.9 - Esophagitis SNOMED: 07239731 Status: unchanged Status Narrative Discussed with Dr. Wilson. Assessment/Plan EGD deferred >> conservator will only consent if case emergent GTFs per RD today OB stool r/o GI bleed stable H&H, prn transfusions if Hgb less than 7.0 bowel regime ppi BID + carafate fu labs Subjective Subjective limited Objective Last 24 Hour Vital Signs Date Time Temp Pulse Resp B/P (MAP) Pulse Ox O2 Delivery O2 Flow Rate FiO2 10/25/17 09:16 90 139/88 10/25/17 08:53 90 19 40 10/25/17 08:00 98.6 84 24 139/88 100 Mechanical Ventilator 40 10/25/17 06:30 70 16 40 10/25/17 05:32 70 16 40 10/25/17 04:00 40 10/25/17 04:00 76 10/25/17 04:00 98.3 86 25 143/85 95 10/25/17 03:09 81 19 40 10/25/17 01:09 91 18 40 10/25/17 00:00 98.4 79 17 134/68 99 10/25/17 00:00 75 10/25/17 00:00 40 10/24/17 23:22 84 22 40 10/24/17 21:15 81 24 40 10/24/17 20:00 98.3 82 18 129/64 100 10/24/17 20:00 77 10/24/17 20:00 40 10/24/17 19:16 76 20 40 10/24/17 17:20 84 19 40 10/24/17 16:00 97.6 78 20 122/65 100 10/24/17 16:00 40 10/24/17 15:18 86 27 40 10/24/17 15:13 78 10/24/17 13:15 78 28 40 10/24/17 12:09 40 10/24/17 11:57 98.5 78 20 132/72 100 10/24/17 11:38 88 10/24/17 11:01 109 17 40 Intake and Output 10/24/17 10/25/17 19:00 07:00 Intake Total 1680.0 ml 1500 ml Output Total 775 ml 800 ml Balance 905.0 ml 700 ml Free Water 100 ml IV Total 620.0 ml 900 ml Tube Feeding 600 ml 500 ml Other 360 ml 100 ml Output Urine Total 750 ml 800 ml Stool Total 25 ml 0 ml Laboratory Tests Test 10/25/17 04:30 White Blood Count 9.2 K/UL (4.8-10.8) Red Blood Count 2.82 M/UL (4.70-6.10) L Hemoglobin 7.5 G/DL (14.2-18.0) L Hematocrit 23.8 % (42.0-52.0) L Mean Corpuscular Volume 85 FL (80-99) Mean Corpuscular Hemoglobin 26.6 PG (27.0-31.0) L Mean Corpuscular Hemoglobin Concent 31.5 G/DL (32.0-36.0) L Red Cell Distribution Width 17.1 % (11.6-14.8) H Platelet Count 310 K/UL (150-450) Mean Platelet Volume 7.5 FL (6.5-10.1) Neutrophils (%) (Auto) % (45.0-75.0) Lymphocytes (%) (Auto) % (20.0-45.0) Monocytes (%) (Auto) % (1.0-10.0) Eosinophils (%) (Auto) % (0.0-3.0) Basophils (%) (Auto) % (0.0-2.0) Erythrocyte Sedimentation Rate 84 MM/HR (0-20) H Sodium Level 129 MMOL/L (136-145) L Potassium Level 3.3 MMOL/L (3.5-5.1) L Chloride Level 98 MMOL/L (98-107) Carbon Dioxide Level 27 MMOL/L (21-32) Anion Gap 4 mmol/L (5-15) L Blood Urea Nitrogen 10 mg/dL (7-18) Creatinine 0.8 MG/DL (0.55-1.30) Estimat Glomerular Filtration Rate > 60 mL/min (>60) Glucose Level 115 MG/DL (74-106) H Calcium Level 8.2 MG/DL (8.5-10.1) L Phosphorus Level 2.6 MG/DL (2.5-4.9) Magnesium Level 1.4 MG/DL (1.8-2.4) L Total Bilirubin 0.1 MG/DL (0.2-1.0) L Aspartate Amino Transf (AST/SGOT) 15 U/L (15-37) Alanine Aminotransferase (ALT/SGPT) 16 U/L (12-78) Alkaline Phosphatase 98 U/L (46-116) Total Protein 6.8 G/DL (6.4-8.2) Albumin 2.3 G/DL (3.4-5.0) L Globulin 4.5 g/dL Albumin/Globulin Ratio 0.5 (1.0-2.7) L Height (Feet): 5 Height (Inches): 10.00 Weight (Pounds): 126 General Appearance: no apparent distress Cardiovascular: normal rate Respiratory/Chest: normal breath sounds, no respiratory distress, other - mech vent Abdominal Exam: normal bowel sounds, non tender, soft, GT site - c/d/i Arabella Quesada N.P. Oct 25, 2017 10:39
[2017-10-25] MEDS ORDERED: Potassium Chloride 40 MEQ in Sodium Chloride 500ML 550 ML IVPB ONE (11:00)
[2017-10-25 12:00] VITALS: BP 124/73
[2017-10-25 16:00] VITALS: BP 136/89
--- NOTE | 2017-10-25 16:10 | Infectious Diseases Prog Note ---
Assessment/Plan Assessment/Plan UGIB -hx of UGIB, severe esophagitis s/p multiple EGDs -conservator refused EGD unless emergent Leukocytosis, ? etio , resolved off of Ab Rx 10/24 -ucx >100k GNB #1, #2, no u/a done -sp cx GNB #1, #2 -likely colonizers as no PNA on CXR Afebrile -CXR: No acute process -influenza neg Rash-suspicious for Scabies -s/p empiric tx (permehtrin and ivermectin 10/17 &10/24) Diarrhea -Cdiff neg PICC SP on 10/16 Acute on chronic anemia chronic vent/trach s/p peg bed bound malnutrition SNF resident Plan: Monitor off abx unless febrile, leukocytosis and/or HD unstable - 10/17 SP IV Vanco and Cefepime - SP Permethrin cream and ivermectin x1 10/17; 2nd tx 10/24 -contact precautions -f/u cx -Monitor CBC/BMP, temperatures -ETT/Trach care -u/a, CXR Subjective Allergies: Coded Allergies: NO KNOWN DRUG ALLERGIES (Verified Allergy, Unknown, 09/11/16) Subjective afebrile no leukocytosis off abx Bcx NTD Objective Vital Signs Last 24 Hour Vital Signs Date Time Temp Pulse Resp B/P (MAP) Pulse Ox O2 Delivery O2 Flow Rate FiO2 10/25/17 15:01 81 19 40 10/25/17 12:36 101 30 40 10/25/17 12:00 75 10/25/17 12:00 98.2 79 18 124/73 99 Mechanical Ventilator 40 10/25/17 12:00 40 10/25/17 10:38 79 21 40 10/25/17 09:16 90 139/88 10/25/17 08:53 90 19 40 10/25/17 08:00 79 10/25/17 08:00 40 10/25/17 08:00 98.6 84 24 139/88 100 Mechanical Ventilator 40 10/25/17 06:30 70 16 40 10/25/17 05:32 70 16 40 10/25/17 04:00 40 10/25/17 04:00 76 10/25/17 04:00 98.3 86 25 143/85 95 10/25/17 03:09 81 19 40 10/25/17 01:09 91 18 40 2/15/18 00:00 98.4 79 17 134/68 99 10/25/17 00:00 75 10/25/17 00:00 40 10/24/17 23:22 84 22 40 10/24/17 21:15 81 24 40 10/24/17 20:00 98.3 82 18 129/64 100 10/24/17 20:00 77 10/24/17 20:00 40 10/24/17 19:16 76 20 40 10/24/17 17:20 84 19 40 Height (Feet): 5 Height (Inches): 10.00 Weight (Pounds): 126 Objective HEENT: atraumatic Respiratory/Chest: no accessory muscle use Cardiovascular: regularly irregular Abdomen: normal bowel sounds Microbiology Date/Time Source Procedure Growth Status 10/23/17 15:20 Blood Blood Culture - Preliminary NO GROWTH AFTER 24 HOURS Resulted 10/23/17 11:15 Sputum Induced Gram Stain - Final Resulted 10/23/17 11:15 Sputum Culture - Preliminary Gram Negative Bacillus 1 Gram Negative Bacillus 2 Resulted 10/24/17 23:50 Stool Clostridium difficile Toxin Assay - Final Complete 10/23/17 15:18 Urine,Clean Catch Urine Culture - Preliminary Gram Negative Bacillus 1 Gram Negative Bacillus 2 Resulted Laboratory Tests Test 10/25/17 04:30 White Blood Count 9.2 K/UL (4.8-10.8) Red Blood Count 2.82 M/UL (4.70-6.10) L Hemoglobin 7.5 G/DL (14.2-18.0) L Hematocrit 23.8 % (42.0-52.0) L Mean Corpuscular Volume 85 FL (80-99) Mean Corpuscular Hemoglobin 26.6 PG (27.0-31.0) L Mean Corpuscular Hemoglobin Concent 31.5 G/DL (32.0-36.0) L Red Cell Distribution Width 17.1 % (11.6-14.8) H Platelet Count 310 K/UL (150-450) Mean Platelet Volume 7.5 FL (6.5-10.1) Neutrophils (%) (Auto) % (45.0-75.0) Lymphocytes (%) (Auto) % (20.0-45.0) Monocytes (%) (Auto) % (1.0-10.0) Eosinophils (%) (Auto) % (0.0-3.0) Basophils (%) (Auto) % (0.0-2.0) Erythrocyte Sedimentation Rate 84 MM/HR (0-20) H Sodium Level 129 MMOL/L (136-145) L Potassium Level 3.3 MMOL/L (3.5-5.1) L Chloride Level 98 MMOL/L (98-107) Carbon Dioxide Level 27 MMOL/L (21-32) Anion Gap 4 mmol/L (5-15) L Blood Urea Nitrogen 10 mg/dL (7-18) Creatinine 0.8 MG/DL (0.55-1.30) Estimat Glomerular Filtration Rate > 60 mL/min (>60) Glucose Level 115 MG/DL (74-106) H Calcium Level 8.2 MG/DL (8.5-10.1) L Phosphorus Level 2.6 MG/DL (2.5-4.9) Magnesium Level 1.4 MG/DL (1.8-2.4) L Total Bilirubin 0.1 MG/DL (0.2-1.0) L Aspartate Amino Transf (AST/SGOT) 15 U/L (15-37) Alanine Aminotransferase (ALT/SGPT) 16 U/L (12-78) Alkaline Phosphatase 98 U/L (46-116) Total Protein 6.8 G/DL (6.4-8.2) Albumin 2.3 G/DL (3.4-5.0) L Globulin 4.5 g/dL Albumin/Globulin Ratio 0.5 (1.0-2.7) L Current Medications Medications (Trade) Dose Ordered Sig/Wanda Route PRN Reason Start Time Stop Time Status Last Admin Dose Admin Acetaminophen (Tylenol) 650 mg Q4H PRN ORAL FEVER (temp>100.5F) 10/16/17 19:30 11/15/17 19:29 Amlodipine Besylate (Norvasc) 2.5 mg DAILY ORAL 10/17/17 09:00 11/16/17 08:59 10/25/17 09:16 Chlorhexidine Gluconate (Jasmin-Hex 2%) 1 applic Q24H TOPIC 10/18/17 20:00 11/17/17 19:59 10/24/17 19:45 Clotrimazole (Lotrimin) 1 applic EVERY 12 HOURS TOPIC 10/23/17 15:00 11/22/17 14:59 10/25/17 09:17 Dextrose (Dextrose 50%) STAT PRN IV Hypoglycemia 10/16/17 19:30 11/15/17 19:29 Diphenhydramine HCl (Benadryl) 25 mg Q6H PRN IVP Itching 10/24/17 15:00 11/17/17 18:59 Hydroxyzine HCl (Atarax) 50 mg Q6H PRN GT Itching 10/24/17 14:45 11/23/17 14:44 Levothyroxine Sodium (Synthroid) 50 mcg ACBREAKFAST GT 10/17/17 06:30 11/16/17 06:29 10/25/17 05:35 Multi-Ingredient Ointment (Eucerin) 1 applic THREE TIMES A DAY TOPIC 10/23/17 18:00 11/22/17 17:59 10/25/17 13:03 Ondansetron HCl (Zofran) 4 mg Q6H PRN IVP Nausea & Vomiting 10/16/17 19:30 11/15/17 19:29 Pantoprazole (Protonix) 40 mg EVERY 12 HOURS IVP 10/17/17 21:00 11/16/17 20:59 10/25/17 09:16 Polyethylene Glycol (Miralax) 17 gm DAILYPRN PRN ORAL Constipation 10/16/17 19:30 11/15/17 19:29 Sodium Chloride 1,000 ml @ 75 mls/hr [id number] IV 10/16/17 21:00 11/15/17 20:59 10/25/17 09:25 Sucralfate (Carafate) 1 gm FOUR TIMES A DAY ORAL 10/18/17 09:00 11/17/17 08:59 10/25/17 13:02 Lisy Lai M.D. Oct 25, 2017 16:10
[2017-10-25] MEDS ORDERED: Tubing IV Secondary IV ONE ×2 (17:44→19:23)
[2017-10-25] MEDS ORDERED: 1/2 NS 1000ml IV ONE (17:44)
[2017-10-25] MEDS ORDERED: Tubing Blood Filter IV ONE (19:23)
--- NOTE | 2017-10-26 13:42 | Discharge Summary ---
Discharge Summary Hospital Course Date of Admission Oct 16, 2017 at 20:55 Date of Discharge Oct 25, 2017 at 19:24 Admitting Diagnosis SEPSIS HPI Maldonado Huffman is a 67 year old male who was admitted on Oct 16, 2017 at 20:55 for Sepsis Hospital Course [id number] Discharge Discharge Disposition Patient was discharged to SNF/Subacute Facility(03) Discharge Diagnoses: Yuly Montemayor NP Oct 26, 2017 13:42
--- NOTE | 2017-10-26 23:30 | Discharge Summary 2 SIG ---
DATE OF ADMISSION: 10/16/2017 DATE OF DISCHARGE: 10/25/2017 CONSULTANTS: 1. Cesario Daniels M.D. 2. Vitaliy Wilson M.D. HOSPITAL COURSE: The patient is a 67-year-old male with history of chronic respiratory failure on trach and vent, has a PEG, who is bedbound and cachectic, was sent in by nursing facility for complaints of coffee-ground vomiting. He was sent to ED where on evaluation was noted to have leukocytosis, WBC was 12, hemoglobin was 8.7 and hematocrit 27. He was noted to have hyponatremia, sodium level of 131 and creatinine was elevated to 1.5. He was admitted for sepsis and anemia. Chest x-ray done showed no acute process with evidence of tracheostomy. He was started initially on vancomycin and cefepime. He came in with scattered rash on the body suspicious for scabies. He was given permethrin cream and ivermectin x1. He was placed on contact precautions. Influenza screen was negative. Hemoglobin dropped to 7.7. He was given one unit packed RBC blood transfusion. He was planned for EGD; however, conservator would only consent if case is emergent. EGD was then deferred. He was restarted on G-tube feeding and was given proton-pump inhibitors b.i.d. and Carafate. Hemoglobin levels were stable posttransfusion. PICC line was inserted to the right arm on 10/16/2017. He was continued to be monitored off antibiotic treatment. Blood cultures did not isolate any growth. He had diarrhea. Stool was negative for C. difficile. Urine culture showed growth of gram-negative bacteria and sputum with gram-negative bacillus, possibly colonizers. He was given second treatment of ivermectin. Leukocytosis resolved. He was eventually discharged to SNF. FINAL DIAGNOSES: 1. Sepsis. 2. Upper gastrointestinal bleed. 3. Acute anemia, requiring blood transfusion. 4. Iron-deficiency anemia. 5. Severe protein-calorie malnutrition. 6. Esophagitis. 7. Diarrhea, negative for Clostridium difficile. 8. Bed-bound/functional quadriplegia. 9. [facility] facility resident. 10. Rash, suspicious for scabies. DISPOSITION: The patient was discharged to SNF. DISCHARGE MEDICATIONS: Refer to medication list. Huma Keating M.D. I have been assigned to dictate discharge summary on this account and I was not involved in the patient's management. Yuly Montemayor N.P. DR: ANGEL JOB#: [id number] CC:
== END 2017-10-25 19:24 | DRG 870 ==
LOC: EDBD 11:43 → EMR 14:00 → EDBEDREQ 14:24 → EDBEDREQSVC 20:31 → EDBEDREQ 20:38 → 2W 20:55
PROC: 5A1955Z Respiratory Ventilation, Greater than 96 Consecutive Hours (ICD-10-PCS; principal; 2017-10-16)
DX: A41.9 Sepsis, unspecified organism (principal); J96.20 Acute and chronic respiratory failure, unspecified whether with hypoxia or hypercapnia; E43 Unspecified severe protein-calorie malnutrition; Z99.11 Dependence on respirator [ventilator] status; Z93.0 Tracheostomy status; K92.2 Gastrointestinal hemorrhage, unspecified; Z68.1 Body mass index [BMI] 19.9 or less, adult; G30.9 Alzheimer's disease, unspecified; F02.80 Dementia in other diseases classified elsewhere, unspecified severity, without behavioral disturbance, psychotic disturbance, mood disturbance, and anxiety; Z93.1 Gastrostomy status; K20.9 Esophagitis, unspecified; R21 Rash and other nonspecific skin eruption; Z74.01 Bed confinement status
CPT/HCPCS: 36415; 36569; 71045; 74018; 76937; 80048; 80053; 80069; 80202; 82270; 82550; 82553; 83605; 83735; 84100; 84484; 85007; 85025; 85610; 85651; 85730; 86710; 86850; 86900; 86901; 86920; 87040; 87070; 87081; 87086; 87181; 87205; 87324; 93005; 93970; 94002; 94003; 99285

== ENCOUNTER 2017-12-28 18:06 | Inpatient (IN) | payer MEDICARE ==
[~2017-12-28] VITALS: Ht 167.6 cm; Wt 63.5 kg
[~2017-12-28 18:06] MED LIST changes: +FLEET ENEMA133 ML RECTAL; +NITROFURANTOIN100 MG PO; +UTI-STAT L3875 MG/31 GT; -UTI-STAT L3875 MG/31 PO
--- NOTE | 2017-12-28 18:24 | Emergency Room Report ---
History of Present Illness General Chief Complaint: Abnormal Labs Source: Medical Record, EMS Present Illness HPI 67-year-old male presents ED for evaluation. Patient brought in by EMS. [facility]. History of encephalopathy. Trach/ vent patient. Patient presenting because of low hemoglobin. Patient has history of GI bleed. No witnessed blood in stool or active vomiting. Patient is unable to provide any additional history at this time. Patient presenting with no signs of distress. No other aggravating relieving factors. Denies any other associated symptoms Allergies: Coded Allergies: NO KNOWN DRUG ALLERGIES (Verified Allergy, Unknown, 09/11/16) Patient History Past Medical History: DM, asthma, CVA/TIA, dementia, renal disease Past Surgical History: none Pertinent Family History: none Social History: Denies: smoking, alcohol use, drug use Immunizations: UTD Reviewed Nursing Documentation: PMH: Agreed; PSxH: Agreed Nursing Documentation-PMH Hx Cardiac Problems: Yes Hx Hypertension: Yes Hx Asthma: Yes Hx COPD: No Hx Diabetes: Yes Hx Cancer: No Hx Gastrointestinal Problems: Yes Hx Dialysis: Yes - pre renal azotemia, uti Hx Neurological Problems: Yes Hx Cerebrovascular Accident: Yes Hx Transient Ischemic Attacks: Yes Hx Dementia: Yes Hx Alzheimer's Disease: Yes Hx Parkinson's Disease: Yes Hx Encephalitis: Yes Hx Seizures: Yes Hx Epilepsy: Yes Hx Paralysis: Yes - HEMIPLEGIA Hx Concentration Difficulty: Yes Hx Speech Problem: Yes Hx Aphasia: Yes Hx Weakness: Yes Hx Fatigue: Yes Hx Neurologic Surgery: No Hx Brain Shunt: No Review of Systems All Other Systems: limited Physical Exam Vital Signs Date Time Temp Pulse Resp B/P (MAP) Pulse Ox O2 Delivery O2 Flow Rate FiO2 12/28/17 18:04 97.9 85 20 118/72 100 Mechanical Ventilator 97.9 Sp02 EP Interpretation: reviewed, normal General Appearance: no apparent distress, other - nonverbal Head: normocephalic Eyes: bilateral eye normal inspection, bilateral eye PERRL ENT: normal ENT inspection Neck: tracheotomy Respiratory: chest non-tender, lungs clear, normal breath sounds, speaking full sentences Cardiovascular #1: regular rate, rhythm, no edema Gastrointestinal: normal bowel sounds, non tender, soft, non-distended, no guarding, no rebound Rectal: deferred Genitourinary: no CVA tenderness Musculoskeletal: normal inspection Neurologic: other - nonverbal Psychiatric: other - nonverbal Skin: normal inspection Lymphatic: normal inspection Medical Decision Making Diagnostic Impression: Primary Impression: Anemia Qualified Codes: D64.9 - Anemia, unspecified Additional Impressions: Acute encephalopathy Respiratory failure, [id number] Qualified Codes: J96.20 - Acute and chronic respiratory failure, unspecified whether with hypoxia or hypercapnia ER Course Hospital Course 67 yo M presents to ED for abnormal Hb. 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 After initial history and physical I ordered labs, IV fluids, EKG Labs - minimal leukocytosis, Hb/Hct 9.1/28.5, electrolytes ok, trop negative EKG - NSR, no acute ischemic changes interpreted by me Given history of GI bleed I believe patient should be admitted for serial H&H Case discussed with Dr. Keating and he agreed to accept the patient to his service for further care and support I feel this is a highly complex case requiring extensive working including EKG/ Rhythm strip, Xray/CT/US, Blood/urine lab work, repeat exams while in ED, and administration of strong opiates/narcotics for pain control, admission to hospital or close patient follow up. Diagnosis -anemia, acute encephalopathy, acute on chronic respiratory failure Patient admitted to [facility] in serious condition Labs Test 12/28/17 18:30 12/28/17 19:00 White Blood Count 11.1 K/UL (4.8-10.8) Red Blood Count 3.53 M/UL (4.70-6.10) Hemoglobin 9.1 G/DL (14.2-18.0) Hematocrit 28.5 % (42.0-52.0) Mean Corpuscular Volume 81 FL (80-99) Mean Corpuscular Hemoglobin 25.7 PG (27.0-31.0) Mean Corpuscular Hemoglobin Concent 31.8 G/DL (32.0-36.0) Red Cell Distribution Width 13.8 % (11.6-14.8) Platelet Count 406 K/UL (150-450) Mean Platelet Volume 6.9 FL (6.5-10.1) Neutrophils (%) (Auto) 63.7 % (45.0-75.0) Lymphocytes (%) (Auto) 24.5 % (20.0-45.0) Monocytes (%) (Auto) 7.9 % (1.0-10.0) Eosinophils (%) (Auto) 3.0 % (0.0-3.0) Basophils (%) (Auto) 1.0 % (0.0-2.0) Prothrombin Time 9.9 SEC (9.30-11.50) Prothromb Time International Ratio 0.9 (0.9-1.1) Activated Partial Thromboplast Time 24 SEC (23-33) Sodium Level 136 MMOL/L (136-145) Potassium Level 4.7 MMOL/L (3.5-5.1) Chloride Level 100 MMOL/L (98-107) Carbon Dioxide Level 24 MMOL/L (21-32) Anion Gap 13 mmol/L (5-15) Blood Urea Nitrogen 35 mg/dL (7-18) Creatinine 1.1 MG/DL (0.55-1.30) Estimat Glomerular Filtration Rate > 60 mL/min (>60) Glucose Level 101 MG/DL (74-106) Calcium Level 9.7 MG/DL (8.5-10.1) Total Bilirubin 0.2 MG/DL (0.2-1.0) Aspartate Amino Transf (AST/SGOT) 18 U/L (15-37) Alanine Aminotransferase (ALT/SGPT) 19 U/L (12-78) Alkaline Phosphatase 150 U/L (46-116) Troponin I 0.011 ng/mL (0.000-0.056) Total Protein 8.1 G/DL (6.4-8.2) Albumin 3.0 G/DL (3.4-5.0) Globulin 5.1 g/dL Albumin/Globulin Ratio 0.6 (1.0-2.7) Lipase 306 U/L (73-393) EKG Diagnostic Results Rate: normal Rhythm: NSR ST Segments: no acute changes ASA given to the pt in ED: No Rhythm Strip Diag. Results EP Interpretation: yes Rhythm: NSR, no PVC's, no ectopy Last Vital Signs Date Time Temp Pulse Resp B/P (MAP) Pulse Ox O2 Delivery O2 Flow Rate FiO2 12/28/17 18:04 97.9 85 20 118/72 100 Mechanical Ventilator 97.9 Status: improved Disposition: ADMITTED INPATIENT Condition: Serious Anup Agee MD Dec 28, 2017 18:24
[2017-12-28 18:54] VITALS: BP 124/102
[2017-12-28 18:57] LABS: HEMATOCRIT 28.5 % (42.0-52.0); HEMOGLOBIN 9.1 G/DL (14.2-18.0); LYMPHOCYTES % (AUTO) 24.5 % (20.0-45.0); MEAN CORPUSCULAR VOLUME 81 FL (80-99); MONOCYTES % (AUTO) 7.9 % (1.0-10.0); NEUTROPHILS % (AUTO) 63.7 % (45.0-75.0); PLATELET COUNT 406 K/UL (150-450); RED BLOOD COUNT 3.53 M/UL (4.70-6.10); RED CELL DISTRIBUTION WIDTH 13.8 % (11.6-14.8); WHITE BLOOD COUNT 11.1 K/UL (4.8-10.8)
[2017-12-28 19:08] LABS: ANION GAP 13 mmol/L (5-15); BLOOD UREA NITROGEN 35 mg/dL (7-18); CALCIUM 9.7 MG/DL (8.5-10.1); CARBON DIOXIDE 24 MMOL/L (21-32); CHLORIDE 100 MMOL/L (98-107); CREATININE 1.1 MG/DL (0.55-1.30); POTASSIUM 4.7 MMOL/L (3.5-5.1); SODIUM 136 MMOL/L (136-145)
[2017-12-28 19:12] LABS: ALANINE AMINOTRANSFERASE 19 U/L (12-78); ALBUMIN/GLOBULIN RATIO 0.6 (1.0-2.7); ALKALINE PHOSPHATASE 150 U/L (46-116); ASPARTATE AMINO TRANSFERASE 18 U/L (15-37); BILIRUBIN,TOTAL 0.2 MG/DL (0.2-1.0)
[2017-12-28 19:18] LABS: INR 0.9 (0.9-1.1)
[2017-12-28 19:26] LABS: APPEARANCE,URINE CLEAR; BILIRUBIN, URINE NEGATIVE (NEGATIVE); COLOR,URINE PALE YELLOW; GLUCOSE, URINE (UA) NEGATIVE (NEGATIVE); KETONES,URINE NEGATIVE (NEGATIVE); LEUKOCYTE ESTERASE ,URINE 3+ (NEGATIVE); NITRITE,URINE POSITIVE (NEGATIVE); PH,URINE 8 (4.5-8.0); PROTEIN,URINE 2+ (NEGATIVE); UROBILINOGEN,URINE NORMAL MG/DL (0.0-1.0)
[2017-12-28] MEDS ORDERED: LORazepam Inj 2mg/ml 1ml IV PRN (22:00)
[2017-12-28] MEDS ORDERED: Albuterol/Ipratropium 3ml neb HHN PRN (22:00)
[2017-12-28] MEDS ORDERED: Morphine Sulfate 4mg/ml Inj IVP PRN (22:00)
[2017-12-28] MEDS ORDERED: Vancomycin 1250mg/D5W 250ml 250 ML IVPB SCH (23:00)
[2017-12-29 04:00] VITALS: BP 142/76
[2017-12-29 06:46] LABS: BASOPHILS % (AUTO) 0.5 % (0.0-2.0); EOSINOPHILS % (AUTO) 2.7 % (0.0-3.0); HEMATOCRIT 25.5 % (42.0-52.0); HEMOGLOBIN 8.6 G/DL (14.2-18.0); LYMPHOCYTES % (AUTO) 18.6 % (20.0-45.0); MEAN CORPUSCULAR VOLUME 81 FL (80-99); MONOCYTES % (AUTO) 8.9 % (1.0-10.0); NEUTROPHILS % (AUTO) 69.3 % (45.0-75.0); PLATELET COUNT 367 K/UL (150-450); RED BLOOD COUNT 3.17 M/UL (4.70-6.10); RED CELL DISTRIBUTION WIDTH 13.9 % (11.6-14.8); WHITE BLOOD COUNT 11.5 K/UL (4.8-10.8)
[2017-12-29 06:56] LABS: ALBUMIN 2.7 G/DL (3.4-5.0); ANION GAP 13 mmol/L (5-15); BLOOD UREA NITROGEN 29 mg/dL (7-18); CALCIUM 9.1 MG/DL (8.5-10.1); CARBON DIOXIDE 19 MMOL/L (21-32); CHLORIDE 102 MMOL/L (98-107); CREATININE 1.1 MG/DL (0.55-1.30); POTASSIUM 4.1 MMOL/L (3.5-5.1); SODIUM 134 MMOL/L (136-145)
[2017-12-29 07:00] LABS: % IRON SATURATION 12 % (15-50); IRON 29 ug/dL (50-175); TOTAL IRON BINDING CAPACITY 236 ug/dL (250-450)
[2017-12-29 08:00] VITALS: BP 132/78
[2017-12-29] MEDS: Sucralfate 1gm tab GT SCH ×4 (08:32→21:29)
--- NOTE | 2017-12-29 08:33 | History and Physical ---
History of Present Illness General Date patient seen: Dec 29, 2017 Reason for Hospitalization: Abnormal Labs Present Illness HPI 67-year-old male with hx of chronic respiratory failure, trach/vent/peg, intermediate resident brought in by paramedics with CC of low hemoglobin. Patient has history of GI bleed. No witnessed blood in stool or active vomiting. Patient is unable to provide any additional history at this time. Patient presenting with no signs of distress. No other aggravating relieving factors. Denies any other associated symptoms. Pt looks cachectic and chronically ill. He was found to have leukocytosis and azotemia. He is admitted to [facility] for further management. Allergies: Coded Allergies: NO KNOWN DRUG ALLERGIES (Verified Allergy, Unknown, 09/11/16) Medication History Scheduled Ascorbic Acid* (Vitamin C*), 500 MG GT DAILY, (Reported) Cran/Vitc/Mannose/Inulin/Brom (Uti-Stat Liquid), 3,875 MG GT DAILY, (Reported) Docusate Sodium* (Docusate Sodium*), 100 MG GT DAILY, (Reported) Famotidine (Famotidine), 20 MG GT DAILY, (Reported) Folic Acid* (Folic Acid*), 1 MG GT DAILY, (Reported) Levothyroxine Sodium* (Levothyroxine Sodium*), 50 MCG GT DAILY, (Reported) Magnesium Hydroxide* (Milk Of Magnesia*), 30 ML GT HS, (Reported) Multivitamin Liquid* (Multi-Delyn*), 15 ML GT DAILY, (Reported) Sucralfate* (Carafate*), 1 GM GT FOUR TIMES A DAY, (Reported) Zinc Sulfate (Zinc Sulfate*), 220 MG ORAL DAILY, (Reported) Scheduled PRN Acetaminophen (Acetaminophen), 640 MG GT Q4HR PRN for Prn Headache/Temp > 101, ( Reported) Bisacodyl (Dulcolax), 10 MG RC NEEDED PRN for IF MOM INEFFECTIVE, (Reported) Ipratropium/Albuterol Sulfate (DuoNeb 0.5-3(2.5)mg/3ml), 3 ML HHN Q4H PRN for Shortness of Breath Na Phos,M-B/Na Phos,Di-Ba* (Fleet Enema*), 133 ML RECTAL QOD PRN for IF DUCOLAX INEFFETIVE, (Reported) Discontinued Medications Amlodipine Besylate (Norvasc), 2.5 MG ORAL DAILY Discontinued Reason: Pt stopped taking med Colistimethate Sodium (Colistin), 75 MG INH Q12HR@ Discontinued Reason: Pt stopped taking med Colistimethate Sodium (Colistin), 150 MG INH Q12HR@ Discontinued Reason: Pt stopped taking med Ertapenem (Invanz), 1 GM IM DAILY Discontinued Reason: Pt stopped taking med Ferrous Sulfate (Ferrous Sulfate), 7.5 ML NG TWICE A DAY, (Reported) Discontinued Reason: Pt stopped taking med Meropenem (Merrem), 1 GM IV EVERY 8 HOURS Discontinued Reason: Pt stopped taking med Meropenem-0.9% Sodium Chloride (Meropenem-0.9% NaCl 1 Gram/50), 1 GM IV EVERY 8 HOURS Discontinued Reason: Pt stopped taking med Nitrofurantoin Macrocrystal (Nitrofurantoin), 100 MG PO BID, (Reported) Discontinued Reason: Pt stopped taking med Pwlsvkwhmpyi-Fwvy-Umcnjlxi,Iso (Zosyn 3.375 Gm Pre Mix-Bag), 3.375 GM IVPB EVERY 8 HOURS Discontinued Reason: Pt stopped taking med Protein Supplement (Promod), 30 ML GT DAILY, (Reported) Discontinued Reason: Pt stopped taking med Tigecycline (Tygacil), 50 MG IVPB EVERY 12 HOURS Discontinued Reason: Pt stopped taking med Tigecycline (Tygacil), 50 MG IVPB EVERY 12 HOURS Discontinued Reason: Pt stopped taking med Trimethoprim/Sulfamethoxazole 160/800* (Bactrim Ds Tablet*), 1 TAB GT BID, ( Reported) Discontinued Reason: Pt stopped taking med Vancomycin Hcl/D5w (Vancomycin-D5w 1 G/250 Ml), 750 GM IVPB Q12HR, (Reported) Discontinued Reason: Pt stopped taking med [triamcinolone cream], 0.1 % TOPIC BID, (Reported) Discontinued Reason: Pt had allergic rxn Patient History Healthcare decision maker ESDRAS HUERTA Resuscitation status Full Code Advanced Directive on File Yes Past Medical/Surgical History Past Medical/Surgical History: (1) long-term resident (2) Debility (3) Psychosis (4) Protein-calorie malnutrition, severe (5) Feeding by G-tube (6) Alzheimer's dementia Review of Systems All Other Systems: negative except mentioned in HPI Physical Exam General Appearance: cachetic Lines, tubes and drains: peripheral HEENT: normocephalic, anicteric Neck: non-tender, normal alignment Respiratory/Chest: chest wall non-tender, lungs clear, rhonchi - left, rhonchi - right Breasts: no masses Cardiovascular/Chest: normal peripheral pulses, normal rate Abdomen: normal bowel sounds, non tender Genitourinary/Rectal: normal genital exam Extremities: normal range of motion, non-tender Skin Exam: normal pigmentation 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 normal Lymphatic: anterior cervical Last 24 Hour Vital Signs Date Time Temp Pulse Resp B/P (MAP) Pulse Ox O2 Delivery O2 Flow Rate FiO2 12/29/17 06:35 95 22 40 12/29/17 05:11 99 24 40 12/29/17 04:00 40 12/29/17 04:00 98.1 83 22 142/76 100 Mechanical Ventilator 40 98.1 12/29/17 03:47 86 12/29/17 03:33 91 28 40 12/29/17 00:46 82 26 40 12/29/17 00:00 87 12/29/17 00:00 40 12/28/17 22:38 88 22 40 12/28/17 20:41 85 21 40 12/28/17 20:25 90 18 124/102 100 Mechanical Ventilator 40 12/28/17 18:54 90 18 124/102 100 Mechanical Ventilator 40 12/28/17 18:52 40 12/28/17 18:49 89 18 40 12/28/17 18:04 97.9 85 20 118/72 100 Mechanical Ventilator 97.9 Intake and Output 12/28/17 12/29/17 19:00 07:00 Intake Total 850.000 ml Output Total 380 ml Balance 470.000 ml Intake IV Total 850.000 ml Output Urine Total 380 ml # Voids 1 # Bowel Movements 1 Laboratory Tests Test 12/28/17 18:30 12/28/17 19:00 12/29/17 06:00 White Blood Count 11.1 K/UL (4.8-10.8) H Pending Red Blood Count 3.53 M/UL (4.70-6.10) L Pending Hemoglobin 9.1 G/DL (14.2-18.0) L Pending Hematocrit 28.5 % (42.0-52.0) L Pending Mean Corpuscular Volume 81 FL (80-99) Pending Mean Corpuscular Hemoglobin 25.7 PG (27.0-31.0) L Pending Mean Corpuscular Hemoglobin Concent 31.8 G/DL (32.0-36.0) L Pending Red Cell Distribution Width 13.8 % (11.6-14.8) Pending Platelet Count 406 K/UL (150-450) Pending Mean Platelet Volume 6.9 FL (6.5-10.1) Pending Neutrophils (%) (Auto) 63.7 % (45.0-75.0) Pending Lymphocytes (%) (Auto) 24.5 % (20.0-45.0) Pending Monocytes (%) (Auto) 7.9 % (1.0-10.0) Pending Eosinophils (%) (Auto) 3.0 % (0.0-3.0) Pending Basophils (%) (Auto) 1.0 % (0.0-2.0) Pending Prothrombin Time 9.9 SEC (9.30-11.50) Prothromb Time International Ratio 0.9 (0.9-1.1) Activated Partial Thromboplast Time 24 SEC (23-33) Sodium Level 136 MMOL/L (136-145) 134 MMOL/L (136-145) L Potassium Level 4.7 MMOL/L (3.5-5.1) 4.1 MMOL/L (3.5-5.1) Chloride Level 100 MMOL/L (98-107) 102 MMOL/L (98-107) Carbon Dioxide Level 24 MMOL/L (21-32) 19 MMOL/L (21-32) L Anion Gap 13 mmol/L (5-15) 13 mmol/L (5-15) Blood Urea Nitrogen 35 mg/dL (7-18) H 29 mg/dL (7-18) H Creatinine 1.1 MG/DL (0.55-1.30) 1.1 MG/DL (0.55-1.30) Estimat Glomerular Filtration Rate > 60 mL/min (>60) > 60 mL/min (>60) Glucose Level 101 MG/DL (74-106) 104 MG/DL (74-106) Calcium Level 9.7 MG/DL (8.5-10.1) 9.1 MG/DL (8.5-10.1) Total Bilirubin 0.2 MG/DL (0.2-1.0) Aspartate Amino Transf (AST/SGOT) 18 U/L (15-37) Alanine Aminotransferase (ALT/SGPT) 19 U/L (12-78) Alkaline Phosphatase 150 U/L (46-116) H Troponin I 0.011 ng/mL (0.000-0.056) Total Protein 8.1 G/DL (6.4-8.2) Albumin 3.0 G/DL (3.4-5.0) L 2.7 G/DL (3.4-5.0) L Globulin 5.1 g/dL Albumin/Globulin Ratio 0.6 (1.0-2.7) L Lipase 306 U/L (73-393) Urine Color Pale yellow Urine Appearance Clear Urine pH 8 (4.5-8.0) Urine Specific Lyndon 1.010 (1.005-1.035) Urine Protein 2+ (NEGATIVE) H Urine Glucose (UA) Negative (NEGATIVE) Urine Ketones Negative (NEGATIVE) Urine Occult Blood 3+ (NEGATIVE) H Urine Nitrite Positive (NEGATIVE) H Urine Bilirubin Negative (NEGATIVE) Urine Urobilinogen Normal MG/DL (0.0-1.0) Urine Leukocyte Esterase 3+ (NEGATIVE) H Urine RBC 5-10 /HPF (0 - 0) H Urine WBC 10-15 /HPF (0 - 0) H Urine Squamous Epithelial Cells None /LPF (NONE/OCC) Urine Amorphous Sediment Few /LPF (NONE) H Urine Bacteria Moderate /HPF (NONE) H Phosphorus Level 3.0 MG/DL (2.5-4.9) Iron Level 29 ug/dL (50-175) L Total Iron Binding Capacity 236 ug/dL (250-450) L Percent Iron Saturation 12 % (15-50) L Unsaturated Iron Binding 207 ug/dL (112-346) Microbiology Date/Time Source Procedure Growth Status 12/28/17 19:00 Urine,Clean Catch Urine Culture - Preliminary NO GROWTH Resulted Height (Feet): 5 Height (Inches): 6.00 Weight (Pounds): 130 Medications Current Medications Medications (Trade) Dose Ordered Sig/Wanda Route PRN Reason Start Time Stop Time Status Last Admin Dose Admin Acetaminophen (Tylenol) 650 mg Q4H PRN ORAL FEVER 12/28/17 22:00 01/27/18 21:59 Albuterol/ Ipratropium (Albuterol/ Ipratropium) 3 ml Q4H PRN HHN Shortness of Breath 12/28/17 22:00 01/02/18 21:59 Dextrose (Dextrose 50%) STAT PRN IV Hypoglycemia 12/28/17 22:00 01/27/18 21:59 Levothyroxine Sodium (Synthroid) 50 mcg DAILY GT 12/29/17 09:00 01/28/18 08:59 Lorazepam (Ativan 2mg/ml 1ml) 2 mg Q2H PRN IV For Anxiety 12/28/17 22:00 01/04/18 21:59 Morphine Sulfate (Morphine Sulfate) 4 mg Q4H PRN IVP Severe Pain (Pain Scale 7-10) 12/28/17 22:00 01/04/18 21:59 Ondansetron HCl (Zofran) 4 mg Q6H PRN IVP Nausea & Vomiting 12/28/17 22:00 01/27/18 21:59 Polyethylene Glycol (Miralax) 17 gm DAILYPRN PRN ORAL Constipation 12/28/17 22:00 01/27/18 21:59 Sodium Chloride 1,000 ml @ 75 mls/hr [id number] IV 12/29/17 08:30 01/28/18 08:29 Sucralfate (Carafate) 1 gm FOUR TIMES A DAY GT 12/29/17 09:00 01/28/18 08:59 Vancomycin HCl/ Dextrose 250 ml @ 166.636 mls/hr Q24H IVPB 12/28/17 23:00 01/02/18 22:59 12/28/17 23:08 Assessment/Plan Problem List: (1) Sepsis ICD Codes: A41.9 - Sepsis, unspecified organism SNOMED: 97732389 (2) Respiratory failure ICD Codes: J96.90 - Respiratory failure, unspecified, unspecified whether with hypoxia or hypercapnia SNOMED: 093370858 (3) Prerenal azotemia ICD Codes: R79.89 - Other specified abnormal findings of blood chemistry SNOMED: 511235307 (4) long-term resident ICD Codes: Z59.3 - Problems related to living in residential institution SNOMED: 497042765 (5) Psychosis ICD Codes: F29 - Psychosis SNOMED: 19491231 (6) Debility ICD Codes: R53.81 - Debility SNOMED: 77721269 (7) Alzheimer's dementia ICD Codes: G30.9 - Alzheimer's disease, unspecified SNOMED: 64361627 Respiratory: monitor respiratory rate, adjust FIO2, CXR Cardiac: continue to monitor HR/BP Renal: F/U I&O, keep IV fluid, check electrolytes Infectious Disease: check cultures, continue antibiotics Gastrointestinal: hold feedings - rule out GI bleeding Endocrine: monitor blood sugar, continue sliding scale insulin Hematologic: monitor H/H, transfuse if hgb<8.5 Neurologic: PRN Ativan, keep patient comfortable Prophylaxis: Protonix, Heparin Discussed with: nurses, consultants, returned case inspector Huma Keating MD Dec 29, 2017 08:33
[2017-12-29] MEDS ORDERED: 1/2 NS 1000ml IV ONE (09:55)
[2017-12-29] MEDS ORDERED: Tubing IV Secondary IV ONE (09:55)
[2017-12-29 12:00] VITALS: BP 127/90
[2017-12-29 16:00] VITALS: BP 161/80
--- NOTE | 2017-12-29 16:25 | Consultation ---
Consult Note Consult Note [id number] Cesario Daniels MD Dec 29, 2017 16:25
[2017-12-29 20:00] VITALS: BP 153/76
--- NOTE | 2017-12-29 21:00 | Consultation ---
DATE OF CONSULTATION: 12/29/2017 INFECTIOUS DISEASE CONSULTATION CONSULTING PHYSICIAN: Cesario Daniels M.D. REFERRING PHYSICIAN: Huma Keating M.D. REASON FOR CONSULT: Evaluation of the patient for leukocytosis, possible sepsis, and antibiotic management. HISTORY OF PRESENT ILLNESS: The patient is a 67-year-old male with multiple medical problems, who is well known to our service from prior admission, was transferred to this medical center due to low hemoglobin and the patient was found to have mild leukocytosis. Infectious Disease consultation has been requested for further evaluation of the patient and antibiotic management. PAST MEDICAL HISTORY: 1. History of upper GI bleed. 2. History of chronic anemia status post PEG and bedbound. 3. Chronic respiratory failure. 4. Status post trach and PEG. 5. Functional quadriplegia. 6. Encephalopathy. 7. CAD. 8. CHF. 9. Hypothyroidism. 10. Diabetes. 11. Bipolar disorder/schizophrenia. MEDICATIONS: IV vancomycin. ALLERGIES: No known drug allergies. SOCIAL HISTORY: The patient lives in a retirement. FAMILY HISTORY: Unavailable. REVIEW OF SYSTEMS: Unobtainable. REVIEW OF SYSTEMS: Unobtainable. PHYSICAL EXAMINATION: VITAL SIGNS: Temperature 98, blood pressure 161/80, pulse 82, and respiratory rate 18. HEENT: Mild pale conjunctivae. No icterus. NECK: No lymphadenopathy. CHEST: Coarse breathing sounds. HEART: S1 and S2. ABDOMEN: Soft. EXTREMITIES: No cyanosis. NEUROLOGIC: Awake and nonverbal. LABORATORY AND DIAGNOSTIC DATA: White blood cells 11, hemoglobin 8.6, and platelets 367,000. UA, 10 to 15 white blood cells. BUN 29 and creatinine 1.1. ALT and AST are unremarkable. Alkaline phosphatase of 150. Urine culture pending. Sputum culture is pending. Chest x-ray pending. ASSESSMENT: The patient is a 67-year-old male with, 1. Mild leukocytosis. 2. No evidence of infection or sepsis by exam. 3. Afebrile. 4. Rule out urinary tract infection, bacteremia, and pneumonia. PLAN: 1. We will monitor the patient off of antibiotics, hold vancomycin. 2. Monitor CBC. 3. Monitor BMP. 4. Monitor cultures (blood, sputum, and urine). 5. Chest x-ray. 6. Management of anemia as per rest of the team. 7. We will monitor the patient's clinical course and laboratories and based on those, we will do further recommendations. Cesario Daniels M.D. DR: PADILLA JOB#: [id number] CC:
[2017-12-30] VITALS: BP 153/76
[2017-12-30 04:00] VITALS: BP 154/86
[2017-12-30 05:15] LABS: BASOPHILS % (AUTO) 0.5 % (0.0-2.0); EOSINOPHILS % (AUTO) 3.6 % (0.0-3.0); HEMATOCRIT 29.5 % (42.0-52.0); HEMOGLOBIN 9.8 G/DL (14.2-18.0); MEAN CORPUSCULAR VOLUME 80 FL (80-99); MONOCYTES % (AUTO) 8.9 % (1.0-10.0); PLATELET COUNT 408 K/UL (150-450); RED BLOOD COUNT 3.69 M/UL (4.70-6.10); RED CELL DISTRIBUTION WIDTH 13.7 % (11.6-14.8)
[2017-12-30 05:41] LABS: ALANINE AMINOTRANSFERASE 16 U/L (12-78); ALBUMIN 2.8 G/DL (3.4-5.0); ALBUMIN/GLOBULIN RATIO 0.5 (1.0-2.7); ALKALINE PHOSPHATASE 155 U/L (46-116); ANION GAP 11 mmol/L (5-15); ASPARTATE AMINO TRANSFERASE 18 U/L (15-37); BILIRUBIN,TOTAL 0.3 MG/DL (0.2-1.0); BLOOD UREA NITROGEN 21 mg/dL (7-18); CALCIUM 9.6 MG/DL (8.5-10.1); CARBON DIOXIDE 21 MMOL/L (21-32); CHLORIDE 103 MMOL/L (98-107); CREATININE 1.2 MG/DL (0.55-1.30); PHOSPHORUS 3.8 MG/DL (2.5-4.9); POTASSIUM 4.3 MMOL/L (3.5-5.1); SODIUM 134 MMOL/L (136-145)
[2017-12-30 08:00] VITALS: BP 109/59
[2017-12-30] MEDS: Sucralfate 1gm tab GT SCH ×4 (09:30→20:35)
--- NOTE | 2017-12-30 09:48 | Diagnostic Imaging Report ---
Indication: Shortness of breath Technique: XRAY Chest 1v Comparison: 10/22/2017 Findings: Tracheostomy is present. Cardiomediastinal silhouette is within normal limits. Mild bilateral interstitial opacities are present. Osseous structures are stable. Impression: Mild bilateral interstitial edema versus infiltrates. Clinical correlation/follow-up recommended.
[2017-12-30 12:00] VITALS: BP 125/64
--- NOTE | 2017-12-30 14:04 | Pulmonology Progress Note ---
Assessment/Plan Problems: (1) Sepsis (2) Respiratory failure (3) Prerenal azotemia (4) [facility] resident (5) Psychosis (6) Debility (7) Alzheimer's dementia Respiratory: adjust tidal volume, monitor respiratory rate, adjust FIO2, CXR Cardiac: continue to monitor HR/BP Renal: F/U I&O, keep IV fluid, check electrolytes Infectious Disease: check cultures Gastrointestinal: continue feedings/current rate, hold feedings Endocrine: monitor blood sugar, continue sliding scale insulin Hematologic: monitor H/H, transfuse if hgb<8.5 Neurologic: PRN Ativan, PRN Morphine, keep patient comfortable Prophylaxis: Heparin Notes Reviewed: ID Discussed with: nurses, consultants, family service caseworker Subjective ROS Limited/Unobtainable: No Constitutional: Reports: no symptoms HEENT: Repors: no symptoms Respiratory: Reports: no symptoms Allergies: Coded Allergies: NO KNOWN DRUG ALLERGIES (Verified Allergy, Unknown, 09/11/16) Objective Last 24 Hour Vital Signs Date Time Temp Pulse Resp B/P (MAP) Pulse Ox O2 Delivery O2 Flow Rate FiO2 12/30/17 13:28 73 16 40 12/30/17 12:00 40 12/30/17 12:00 97.0 81 20 125/64 99 97.0 12/30/17 10:51 79 16 40 12/30/17 08:51 90 16 40 12/30/17 08:00 40 12/30/17 08:00 97.7 75 20 109/59 99 97.7 12/30/17 07:52 75 12/30/17 07:20 93 16 40 12/30/17 05:18 91 16 40 12/30/17 04:00 40 12/30/17 04:00 85 12/30/17 04:00 97.9 93 19 154/86 98 Mechanical Ventilator 40 97.9 12/30/17 02:52 88 17 40 12/30/17 01:46 87 17 40 12/30/17 00:00 40 12/30/17 00:00 97.8 91 17 153/76 100 Mechanical Ventilator 40 97.8 12/29/17 23:33 79 12/29/17 22:55 99 16 40 12/29/17 21:22 92 16 40 12/29/17 20:00 97.8 91 17 153/76 98 Mechanical Ventilator 40 97.8 12/29/17 20:00 40 12/29/17 20:00 87 12/29/17 19:00 88 16 40 12/29/17 17:16 87 16 40 12/29/17 16:00 98.2 89 22 161/80 98 Mechanical Ventilator 40 98.2 12/29/17 16:00 85 12/29/17 16:00 40 12/29/17 15:22 87 23 40 Intake and Output 12/29/17 12/30/17 19:00 07:00 Intake Total 867.6 ml 790 ml Output Total 750 ml 600 ml Balance 117.6 ml 190 ml Intake IV Total 867.6 ml 790 ml Output Urine Total 750 ml 600 ml 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 normal Microbiology Date/Time Source Procedure Growth Status 12/29/17 03:30 Sputum Gram Stain - Final Resulted 12/29/17 03:30 Sputum Sputum Culture Pending Resulted 12/28/17 19:00 Urine,Clean Catch Urine Culture - Preliminary Gram Negative Bacillus 1 Resulted Laboratory Tests 12/30/17 03:35: White Blood Count 12.0H, Red Blood Count 3.69L, Hemoglobin 9.8L, Hematocrit 29.5L, Mean Corpuscular Volume 80, Mean Corpuscular Hemoglobin 26.7L, Mean Corpuscular Hemoglobin Concent 33.3, Red Cell Distribution Width 13.7, Platelet Count 408, Mean Platelet Volume 7.1, Neutrophils (%) (Auto) 72.0, Lymphocytes (% ) (Auto) 15.0L, Monocytes (%) (Auto) 8.9, Eosinophils (%) (Auto) 3.6H, Basophils (%) (Auto) 0.5, Sodium Level 134L, Potassium Level 4.3, Chloride Level 103, Carbon Dioxide Level 21, Anion Gap 11, Blood Urea Nitrogen 21H, Creatinine 1.2, Estimat Glomerular Filtration Rate > 60, Glucose Level 106, Calcium Level 9.6, Phosphorus Level 3.8, Magnesium Level 2.1, Total Bilirubin 0.3, Aspartate Amino Transf (AST/SGOT) 18, Alanine Aminotransferase (ALT/SGPT) 16, Alkaline Phosphatase 155H, Total Protein 8.4H, Albumin 2.8L, Globulin 5.6, Albumin/Globulin Ratio 0.5L Current Medications Medications (Trade) Dose Ordered Sig/Wanda Route PRN Reason Start Time Stop Time Status Last Admin Dose Admin Acetaminophen (Tylenol) 650 mg Q4H PRN ORAL FEVER 12/28/17 22:00 01/27/18 21:59 Albuterol/ Ipratropium (Albuterol/ Ipratropium) 3 ml Q4H PRN HHN Shortness of Breath 12/28/17 22:00 01/02/18 21:59 Dextrose (Dextrose 50%) STAT PRN IV Hypoglycemia 12/28/17 22:00 01/27/18 21:59 Levothyroxine Sodium (Synthroid) 50 mcg DAILY@0630 GT 12/30/17 06:30 01/29/18 06:29 12/30/17 06:34 Lorazepam (Ativan 2mg/ml 1ml) 2 mg Q2H PRN IV For Anxiety 12/28/17 22:00 01/04/18 21:59 Morphine Sulfate (Morphine Sulfate) 4 mg Q4H PRN IVP Severe Pain (Pain Scale 7-10) 12/28/17 22:00 01/04/18 21:59 12/30/17 05:42 Ondansetron HCl (Zofran) 4 mg Q6H PRN IVP Nausea & Vomiting 12/28/17 22:00 01/27/18 21:59 Polyethylene Glycol (Miralax) 17 gm DAILYPRN PRN ORAL Constipation 12/28/17 22:00 01/27/18 21:59 Sodium Chloride 1,000 ml @ 75 mls/hr [id number] IV 12/29/17 08:30 01/28/18 08:29 12/30/17 13:09 Sucralfate (Carafate) 1 gm FOUR TIMES A DAY GT 12/29/17 09:00 01/28/18 08:59 12/30/17 13:09 Huma Keating MD Dec 30, 2017 14:04
[2017-12-30 16:00] VITALS: BP 151/58
[2017-12-30 20:00] VITALS: BP 126/73
[2017-12-31] VITALS: BP 120/70
[2017-12-31 04:00] VITALS: BP 122/65
[2017-12-31 06:14] LABS: BASOPHILS % (AUTO) 0.5 % (0.0-2.0); EOSINOPHILS % (AUTO) 7.1 % (0.0-3.0); HEMATOCRIT 29.2 % (42.0-52.0); LYMPHOCYTES % (AUTO) 17.2 % (20.0-45.0); MEAN CORPUSCULAR VOLUME 81 FL (80-99); MONOCYTES % (AUTO) 8.9 % (1.0-10.0); NEUTROPHILS % (AUTO) 66.1 % (45.0-75.0); PLATELET COUNT 387 K/UL (150-450); RED BLOOD COUNT 3.62 M/UL (4.70-6.10); RED CELL DISTRIBUTION WIDTH 13.6 % (11.6-14.8); WHITE BLOOD COUNT 11.1 K/UL (4.8-10.8)
[2017-12-31 06:32] LABS: ALANINE AMINOTRANSFERASE 16 U/L (12-78); ALBUMIN 2.8 G/DL (3.4-5.0); ALBUMIN/GLOBULIN RATIO 0.5 (1.0-2.7); ALKALINE PHOSPHATASE 143 U/L (46-116); ANION GAP 12 mmol/L (5-15); ASPARTATE AMINO TRANSFERASE 23 U/L (15-37); BILIRUBIN,TOTAL 0.2 MG/DL (0.2-1.0); BLOOD UREA NITROGEN 21 mg/dL (7-18); CALCIUM 9.4 MG/DL (8.5-10.1); CARBON DIOXIDE 20 MMOL/L (21-32); CHLORIDE 104 MMOL/L (98-107); CREATININE 1.1 MG/DL (0.55-1.30); POTASSIUM 4.6 MMOL/L (3.5-5.1); SODIUM 136 MMOL/L (136-145)
[2017-12-31 08:00] VITALS: BP 140/70
[2017-12-31] MEDS: Sucralfate 1gm tab GT SCH ×4 (09:02→20:21)
--- NOTE | 2017-12-31 10:50 | GI Initial Consult Note ---
History of Present Illness General Date patient seen: Dec 31, 2017 Time patient seen: 11:14 Reason for Hospitalization: Abnormal Labs Referring physician: MIKAYLA BANG Reason for Consultation: ANEMIA Present Illness HPI 67-year-old male presents ED for evaluation. Patient brought in by EMS. Patient comes from care home facility. History of encephalopathy. Trach/ vent patient. Patient presenting because of low hemoglobin. Patient has history of GI bleed. No witnessed blood in stool or active vomiting. Patient is unable to provide any additional history at this time. Patient presenting with no signs of distress. No other aggravating relieving factors. Denies any other associated symptoms. GI consulted for anemia. Patient is know to me from multiple prior admissions for anemia, reports of coffee ground emesis and multiple EGDs in the past. Patient with history of severe esophagitis presents today with anemia low Hgb of 7.7 and mild leukocytosis. GT dependent with extreme dysphagia. ROS limited , patient trach to vent. Home Meds Active Scripts Ipratropium/Albuterol Sulfate (DuoNeb 0.5-3(2.5)mg/3ml) 3 Ml Ampul.neb, 3 ML HHN Q4H PRN for Shortness of Breath, #20 EA Prov:Jose ([facility])Amina [employer] 12/25/15 Reported Medications Na Phos,M-B/Na Phos,Di-Ba* (FLEET ENEMA*) 133 Ml Enema, 133 ML RECTAL QOD PRN for IF DUCOLAX INEFFETIVE 10/16/17 Bisacodyl (DULCOLAX) 10 Mg Supp.rect, 10 MG RC NEEDED PRN for IF MOM INEFFECTIVE, SUPP 06/01/17 Magnesium Hydroxide* (MILK OF MAGNESIA*) 400 Mg/5 Ml Oral.susp, 30 ML GT HS for IF DOUSATE DOESN'T WORK, ML 06/01/17 Cran/Vitc/Mannose/Inulin/Brom (UTI-STAT LIQUID) 3,875 Mg/30 Ml Liquid, 3875 MG GT DAILY, ML 04/14/17 Docusate Sodium* (DOCUSATE SODIUM*) 100 Mg Capsule, 100 MG GT DAILY for HOLD FOR LBM, CAP 04/14/17 Zinc Sulfate (ZINC SULFATE*) 220 Mg Capsule, 220 MG ORAL DAILY, CAP 0 Refills 04/14/17 Ascorbic Acid* (VITAMIN C*) 500 Mg Tablet, 500 MG GT DAILY, #30 TAB 0 Refills 04/14/17 Multivitamin Liquid* (MULTI-DELYN*) 237 Ml Liquid, 15 ML GT DAILY, ML 04/14/17 Sucralfate* (CARAFATE*) 1 Gm Tablet, 1 GM GT FOUR TIMES A DAY, TAB 03/03/16 Acetaminophen (Acetaminophen) 650 Mg/20.3 Ml Soln, 640 MG GT Q4HR PRN for Prn Headache/Temp > 101, ML 0 Refills 01/19/16 Folic Acid* (FOLIC ACID*) 1 Mg Tablet, 1 MG GT DAILY, TAB 09/10/14 Famotidine (FAMOTIDINE) 20 Mg Tablet, 20 MG GT DAILY, #60 TAB 0 Refills 09/10/14 Levothyroxine Sodium* (LEVOTHYROXINE SODIUM*) 50 Mcg Tablet, 50 MCG GT DAILY, TAB Take in the morning on an empty stomach, at least 30 minutes before food. 09/10/14 Discontinued Reported Medications Nitrofurantoin Macrocrystal (NITROFURANTOIN) 100 Mg Capsule, 100 MG PO BID for 7 Days 10/16/17 [triamcinolone cream] No Conflict Check, 0.1 % TOPIC BID 06/01/17 Vancomycin Hcl/D5w (VANCOMYCIN-D5W 1 G/250 ML) 1 Gm/250 Ml Plast..bag, 750 GM IVPB Q12HR, BAG 06/01/17 Trimethoprim/Sulfamethoxazole 160/800* (BACTRIM DS TABLET*) 1 Each Tablet, 1 TAB GT BID for 7 Days, TAB 06/01/17 Protein Supplement (PROMOD) 946 Ml Liquid, 30 ML GT DAILY, ML 04/14/17 Ferrous Sulfate (Ferrous Sulfate) 300 Mg/5 Ml Liquid, 7.5 ML NG TWICE A DAY, # 473 ML 0 Refills 04/14/17 Discontinued Scripts Ertapenem (Invanz) 1 Gm Vial, 1 GM IM DAILY for 3 Days, VIAL Prov:Mikayla Keating MD 07/07/17 Tigecycline (TYGACIL) 50 Mg Vial, 50 MG IVPB EVERY 12 HOURS for 3 Days, VIAL Prov:Mikayla Keating MD 07/07/17 Tigecycline (TYGACIL) 50 Mg Vial, 50 MG IVPB EVERY 12 HOURS for 10 Days, VIAL Prov:Mikayla Keating MD 06/07/17 Colistimethate Sodium (Colistin) 150 Mg Vial, 150 MG INH Q12HR@,22 for 10 Days , #10 VIAL Prov:Mikayla Keating MD 06/07/17 Meropenem (Merrem) 1 Gm Vial, 1 GM IV EVERY 8 HOURS for 30 Days, VIAL Prov:Mikayla Keating MD 06/07/17 Meropenem-0.9% Sodium Chloride (Meropenem-0.9% NaCl 1 Gram/50) 1 Gm/50 Ml Piggyback, 1 GM IV EVERY 8 HOURS for 10 Days, BAG Prov:Mikayla Keating MD 04/27/17 Colistimethate Sodium (Colistin) 150 Mg Vial, 75 MG INH Q12HR@10,22 for 10 Days , VIAL Prov:Mikayla Keating MD 04/27/17 Safdpmkudbpf-Krvh-Suxlsyqm,Iso (ZOSYN 3.375 GM PRE MIX-BAG) 3.375 Gm/50 Ml Froz.piggy, 3.375 GM IVPB EVERY 8 HOURS for 2 Days, BAG Prov:Mikayla Keating MD 04/06/17 Amlodipine Besylate (Norvasc) 2.5 Mg Tab, 2.5 MG ORAL DAILY, #30 TAB Prov:Amina Garcia NP (Vanchtein) 01/24/16 Med list reviewed/reconciled: Yes Allergies: Coded Allergies: NO KNOWN DRUG ALLERGIES (Verified Allergy, Unknown, 09/11/16) Patient History Limited by: medical condition History Provided By: Medical Record PMH Narrative Past Medical History: DM, asthma, CVA/TIA, dementia, renal disease Past Surgical History: none Pertinent Family History: none Social History: Denies: smoking, alcohol use, drug use Immunizations: UTD Reviewed Nursing Documentation: PMH: Agreed; PSxH: Agreed Nursing Documentation-PMH Hx Cardiac Problems: Yes Hx Hypertension: Yes Hx Asthma: Yes Hx COPD: No Hx Diabetes: Yes Hx Cancer: No Hx Gastrointestinal Problems: Yes Hx Dialysis: Yes - pre renal azotemia, uti Hx Neurological Problems: Yes Hx Cerebrovascular Accident: Yes Hx Transient Ischemic Attacks: Yes Hx Dementia: Yes Hx Alzheimer's Disease: Yes Hx Parkinson's Disease: Yes Hx Encephalitis: Yes Hx Seizures: Yes Hx Epilepsy: Yes Hx Paralysis: Yes - HEMIPLEGIA Hx Concentration Difficulty: Yes Hx Speech Problem: Yes Hx Aphasia: Yes Hx Weakness: Yes Hx Fatigue: Yes Hx Neurologic Surgery: No Hx Brain Shunt: No Review of Systems All Other Systems: limited Physical Exam Vital Signs Date Time Temp Pulse Resp B/P (MAP) Pulse Ox O2 Delivery O2 Flow Rate FiO2 12/28/17 18:04 97.9 85 20 118/72 100 Mechanical Ventilator 97.9 12/28/17 18:49 40 Sp02 EP Interpretation: reviewed Labs Laboratory Tests Test 12/31/17 04:50 White Blood Count 11.1 K/UL (4.8-10.8) H Red Blood Count 3.62 M/UL (4.70-6.10) L Hemoglobin 10.0 G/DL (14.2-18.0) L Hematocrit 29.2 % (42.0-52.0) L Mean Corpuscular Volume 81 FL (80-99) Mean Corpuscular Hemoglobin 27.6 PG (27.0-31.0) Mean Corpuscular Hemoglobin Concent 34.2 G/DL (32.0-36.0) Red Cell Distribution Width 13.6 % (11.6-14.8) Platelet Count 387 K/UL (150-450) Mean Platelet Volume 7.0 FL (6.5-10.1) Neutrophils (%) (Auto) 66.1 % (45.0-75.0) Lymphocytes (%) (Auto) 17.2 % (20.0-45.0) L Monocytes (%) (Auto) 8.9 % (1.0-10.0) Eosinophils (%) (Auto) 7.1 % (0.0-3.0) H Basophils (%) (Auto) 0.5 % (0.0-2.0) Sodium Level 136 MMOL/L (136-145) Potassium Level 4.6 MMOL/L (3.5-5.1) Chloride Level 104 MMOL/L (98-107) Carbon Dioxide Level 20 MMOL/L (21-32) L Anion Gap 12 mmol/L (5-15) Blood Urea Nitrogen 21 mg/dL (7-18) H Creatinine 1.1 MG/DL (0.55-1.30) Estimat Glomerular Filtration Rate > 60 mL/min (>60) Glucose Level 101 MG/DL (74-106) Calcium Level 9.4 MG/DL (8.5-10.1) Total Bilirubin 0.2 MG/DL (0.2-1.0) Aspartate Amino Transf (AST/SGOT) 23 U/L (15-37) Alanine Aminotransferase (ALT/SGPT) 16 U/L (12-78) Alkaline Phosphatase 143 U/L (46-116) H Pro-B-Type Natriuretic Peptide 710 pg/mL (0-125) H Total Protein 8.5 G/DL (6.4-8.2) H Albumin 2.8 G/DL (3.4-5.0) L Globulin 5.7 g/dL Albumin/Globulin Ratio 0.5 (1.0-2.7) L General Appearance: no apparent distress Head: normocephalic EENT: normal ENT inspection Neck: supple Respiratory: normal breath sounds, no respiratory distress Cardiovascular: normal rate Gastrointestinal: gt Genitourinary: no CVA tenderness Musculoskeletal: back normal Neurologic: alert Skin: normal inspection, normal color, no rash Lymphatic: normal inspection, no adenopathy Current Medications Current Medications Medications (Trade) Dose Ordered Sig/Wanda Route PRN Reason Start Time Stop Time Status Last Admin Dose Admin Acetaminophen (Tylenol) 650 mg Q4H PRN ORAL FEVER 12/28/17 22:00 01/27/18 21:59 Albuterol/ Ipratropium (Albuterol/ Ipratropium) 3 ml Q4H PRN HHN Shortness of Breath 12/28/17 22:00 01/02/18 21:59 Dextrose (Dextrose 50%) STAT PRN IV Hypoglycemia 12/28/17 22:00 01/27/18 21:59 Levothyroxine Sodium (Synthroid) 50 mcg DAILY@0630 GT 12/30/17 06:30 01/29/18 06:29 12/31/17 06:14 Lorazepam (Ativan 2mg/ml 1ml) 2 mg Q2H PRN IV For Anxiety 12/28/17 22:00 01/04/18 21:59 Morphine Sulfate (Morphine Sulfate) 4 mg Q4H PRN IVP Severe Pain (Pain Scale 7-10) 12/28/17 22:00 01/04/18 21:59 12/30/17 05:42 Ondansetron HCl (Zofran) 4 mg Q6H PRN IVP Nausea & Vomiting 12/28/17 22:00 01/27/18 21:59 Polyethylene Glycol (Miralax) 17 gm DAILYPRN PRN ORAL Constipation 12/28/17 22:00 01/27/18 21:59 Sodium Chloride 1,000 ml @ 75 mls/hr [id number] IV 12/29/17 08:30 01/28/18 08:29 12/31/17 02:00 Sucralfate (Carafate) 1 gm FOUR TIMES A DAY GT 12/29/17 09:00 01/28/18 08:59 12/31/17 09:02 GI: Plan Problems: (1) Dementia (2) Protein-calorie malnutrition, severe (3) Feeding by G-tube (4) Anemia (5) Iron deficiency (6) Esophagitis (7) Severe protein-calorie malnutrition Plan anemia work up monitor H&H, prn transfusions bowel regime ppi BID + carafate GTFs fu labs conservator will not sign consent for endoscopy unless life threatening. Discussed with Dr. Wilson. Thank you for this patient referral, we will follow. Arabella Quesada N.P. Dec 31, 2017 10:50
--- NOTE | 2017-12-31 11:40 | Pulmonology Progress Note ---
Assessment/Plan Problems: (1) Sepsis (2) Respiratory failure (3) Prerenal azotemia (4) penitentiary resident (5) Psychosis (6) Debility (7) Alzheimer's dementia Respiratory: monitor respiratory rate, adjust FIO2, other - GNB in sputum Cardiac: continue to monitor HR/BP Renal: F/U I&O, keep IV fluid, check electrolytes Infectious Disease: check cultures, add antibiotics - zosyn for providentia in urine, other - VRE + rectum Gastrointestinal: continue feedings/current rate Endocrine: monitor blood sugar Hematologic: monitor H/H, transfuse if hgb<8.5 Neurologic: PRN Ativan, PRN Morphine, keep patient comfortable Affect: PRN ativan Time Spent (Minutes): 40 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, 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 with: nurses, consultants, patient case coordinator Subjective ROS Limited/Unobtainable: Yes Allergies: Coded Allergies: NO KNOWN DRUG ALLERGIES (Verified Allergy, Unknown, 09/11/16) Objective Last 24 Hour Vital Signs Date Time Temp Pulse Resp B/P (MAP) Pulse Ox O2 Delivery O2 Flow Rate FiO2 12/31/17 11:02 97 18 40 12/31/17 09:03 81 18 40 12/31/17 08:01 40 12/31/17 08:00 69 12/31/17 08:00 97.9 80 18 140/70 100 Mechanical Ventilator 40 97.9 12/31/17 07:02 74 18 40 12/31/17 05:07 79 21 40 12/31/17 04:00 40 12/31/17 04:00 98.2 73 20 122/65 100 Mechanical Ventilator 40 98.2 12/31/17 04:00 74 12/31/17 03:00 70 16 40 12/31/17 00:56 80 16 40 12/31/17 00:00 98.1 80 20 120/70 100 Mechanical Ventilator 40 98.1 12/31/17 00:00 40 12/31/17 00:00 70 12/30/17 23:01 70 16 40 12/30/17 21:17 82 16 40 12/30/17 20:00 97.7 80 20 126/73 100 Mechanical Ventilator 40 97.7 12/30/17 20:00 40 12/30/17 20:00 80 12/30/17 19:22 80 16 40 12/30/17 16:56 83 18 40 12/30/17 16:00 97.3 83 20 151/58 100 97.3 12/30/17 16:00 40 12/30/17 15:42 76 12/30/17 15:26 78 16 40 12/30/17 13:28 73 16 40 12/30/17 12:00 40 12/30/17 12:00 97.0 81 20 125/64 99 97.0 12/30/17 11:51 75 Intake and Output 12/30/17 12/31/17 19:00 07:00 Intake Total 1220 ml 1220 ml Output Total 450 ml 550 ml Balance 770 ml 670 ml Intake Free Water 260 ml IV Total 900 ml 900 ml Tube Feeding 60 ml 320 ml Output Urine Total 450 ml 550 ml General Appearance: cachetic HEENT: normocephalic, atraumatic, status post trach Respiratory/Chest: chest wall non-tender, crackles/rales Cardiovascular: normal peripheral pulses, normal rate Abdomen: normal bowel sounds, soft, non tender Genitourinary: normal external genitalia Extremities: no cyanosis Skin: no rash, no lesions Neurologic/Psychiatric: erp technical lead II-XII grossly normal Microbiology Date/Time Source Procedure Growth Status 12/29/17 03:30 Sputum Gram Stain - Final Resulted 12/29/17 03:30 Sputum Culture - Preliminary Gram Negative Bacillus 1 Gram Negative Bacillus 2 Streptococcus Group G Resulted 12/28/17 18:50 Nasal Nares MRSA Culture - Final Staphylococcus Aureus - Mrsa Complete 12/28/17 19:00 Urine,Clean Catch Urine Culture - Final Providencia Stuartii Complete 12/28/17 18:59 Rectum VRE Culture - Final Enterococcus Faecalis - Vre Complete Laboratory Tests 12/31/17 04:50: White Blood Count 11.1H, Red Blood Count 3.62L, Hemoglobin 10.0L, Hematocrit 29.2L, Mean Corpuscular Volume 81, Mean Corpuscular Hemoglobin 27.6, Mean Corpuscular Hemoglobin Concent 34.2, Red Cell Distribution Width 13.6, Platelet Count 387, Mean Platelet Volume 7.0, Neutrophils (%) (Auto) 66.1, Lymphocytes (% ) (Auto) 17.2L, Monocytes (%) (Auto) 8.9, Eosinophils (%) (Auto) 7.1H, Basophils (%) (Auto) 0.5, Sodium Level 136, Potassium Level 4.6, Chloride Level 104, Carbon Dioxide Level 20L, Anion Gap 12, Blood Urea Nitrogen 21H, Creatinine 1.1, Estimat Glomerular Filtration Rate > 60, Glucose Level 101, Calcium Level 9.4, Total Bilirubin 0.2, Aspartate Amino Transf (AST/SGOT) 23, Alanine Aminotransferase (ALT/SGPT) 16, Alkaline Phosphatase 143H, Pro-B-Type Natriuretic Peptide 710H, Total Protein 8.5H, Albumin 2.8L, Globulin 5.7, Albumin/Globulin Ratio 0.5L Current Medications Medications (Trade) Dose Ordered Sig/Wanda Route PRN Reason Start Time Stop Time Status Last Admin Dose Admin Acetaminophen (Tylenol) 650 mg Q4H PRN ORAL FEVER 12/28/17 22:00 01/27/18 21:59 Albuterol/ Ipratropium (Albuterol/ Ipratropium) 3 ml Q4H PRN HHN Shortness of Breath 12/28/17 22:00 01/02/18 21:59 Dextrose (Dextrose 50%) STAT PRN IV Hypoglycemia 12/28/17 22:00 01/27/18 21:59 Levothyroxine Sodium (Synthroid) 50 mcg DAILY@0630 GT 12/30/17 06:30 01/29/18 06:29 12/31/17 06:14 Lorazepam (Ativan 2mg/ml 1ml) 2 mg Q2H PRN IV For Anxiety 12/28/17 22:00 01/04/18 21:59 Morphine Sulfate (Morphine Sulfate) 4 mg Q4H PRN IVP Severe Pain (Pain Scale 7-10) 12/28/17 22:00 01/04/18 21:59 12/30/17 05:42 Ondansetron HCl (Zofran) 4 mg Q6H PRN IVP Nausea & Vomiting 12/28/17 22:00 01/27/18 21:59 Polyethylene Glycol (Miralax) 17 gm DAILYPRN PRN ORAL Constipation 12/28/17 22:00 01/27/18 21:59 Sodium Chloride 1,000 ml @ 75 mls/hr [id number] IV 12/29/17 08:30 01/28/18 08:29 12/31/17 02:00 Sucralfate (Carafate) 1 gm FOUR TIMES A DAY GT 4/21/18 09:00 01/28/18 08:59 12/31/17 09:02 Huma Keating MD Dec 31, 2017 11:40
--- NOTE | 2017-12-31 11:45 | Infectious Diseases Prog Note ---
Assessment/Plan Assessment/Plan ASSESSMENT: The patient is a 67-year-old male with, 1. Mild leukocytosis, stable 2. No evidence of infection or sepsis by exam. 3. Afebrile. 4. Pyuria/bacteriuria -u/a WBC 5-10, nit +, leuk +3; ucx>100K P, stuarti (S Ceftriaxone) -Bcx p -CXR: Mild bilateral interstitial edema versus infiltrates. ; sp cx GNB #1 and #2, GGS (?colonizers) -History of upper GI bleed. - History of chronic anemia status post PEG and bedbound. - Chronic respiratory failure. -. Status post trach and PEG. -. Functional quadriplegia. -. Encephalopathy. -. CAD. -. CHF. -. Hypothyroidism. -. Diabetes. -. Bipolar disorder/schizophrenia. PLAN: 1. We will monitor the patient off of antibiotics unless febrile or worsenign WBC 2. repeat u/a w/ reflex and CXR 3. Monitor CBC/BMP, temperatures. 4. Monitor cultures (blood, sputum). 5. Chest x-ray. 6. Management of anemia as per rest of the team. 7. We will monitor the patient's clinical course and laboratories and based on those, we will do further recommendations. Subjective Allergies: Coded Allergies: NO KNOWN DRUG ALLERGIES (Verified Allergy, Unknown, 09/11/16) Subjective afebrile leukocytosis stable b/t 11-12 Objective Vital Signs Last 24 Hour Vital Signs Date Time Temp Pulse Resp B/P (MAP) Pulse Ox O2 Delivery O2 Flow Rate FiO2 12/31/17 11:02 97 18 40 12/31/17 09:03 81 18 40 12/31/17 08:01 40 12/31/17 08:00 69 12/31/17 08:00 97.9 80 18 140/70 100 Mechanical Ventilator 40 97.9 12/31/17 07:02 74 18 40 12/31/17 05:07 79 21 40 12/31/17 04:00 40 12/31/17 04:00 98.2 73 20 122/65 100 Mechanical Ventilator 40 98.2 12/31/17 04:00 74 12/31/17 03:00 70 16 40 12/31/17 00:56 80 16 40 12/31/17 00:00 98.1 80 20 120/70 100 Mechanical Ventilator 40 98.1 12/31/17 00:00 40 12/31/17 00:00 70 12/30/17 23:01 70 16 40 12/30/17 21:17 82 16 40 12/30/17 20:00 97.7 80 20 126/73 100 Mechanical Ventilator 40 97.7 12/30/17 20:00 40 12/30/17 20:00 80 12/30/17 19:22 80 16 40 12/30/17 16:56 83 18 40 12/30/17 16:00 97.3 83 20 151/58 100 97.3 12/30/17 16:00 40 12/30/17 15:42 76 12/30/17 15:26 78 16 40 12/30/17 13:28 73 16 40 12/30/17 12:00 40 12/30/17 12:00 97.0 81 20 125/64 99 97.0 12/30/17 11:51 75 Height (Feet): 5 Height (Inches): 6.00 Weight (Pounds): 137 Objective HEENT: Mild pale conjunctivae. No icterus. NECK: No lymphadenopathy. CHEST: Coarse breathing sounds. HEART: S1 and S2. ABDOMEN: Soft. EXTREMITIES: No cyanosis. NEUROLOGIC: Awake and nonverbal. Microbiology Date/Time Source Procedure Growth Status 12/29/17 03:30 Sputum Gram Stain - Final Resulted 12/29/17 03:30 Sputum Culture - Preliminary Gram Negative Bacillus 1 Gram Negative Bacillus 2 Streptococcus Group G Resulted 12/28/17 18:50 Nasal Nares MRSA Culture - Final Staphylococcus Aureus - Mrsa Complete 12/28/17 19:00 Urine,Clean Catch Urine Culture - Final Providencia Stuartii Complete 12/28/17 18:59 Rectum VRE Culture - Final Enterococcus Faecalis - Vre Complete Laboratory Tests Test 12/31/17 04:50 White Blood Count 11.1 K/UL (4.8-10.8) H Red Blood Count 3.62 M/UL (4.70-6.10) L Hemoglobin 10.0 G/DL (14.2-18.0) L Hematocrit 29.2 % (42.0-52.0) L Mean Corpuscular Volume 81 FL (80-99) Mean Corpuscular Hemoglobin 27.6 PG (27.0-31.0) Mean Corpuscular Hemoglobin Concent 34.2 G/DL (32.0-36.0) Red Cell Distribution Width 13.6 % (11.6-14.8) Platelet Count 387 K/UL (150-450) Mean Platelet Volume 7.0 FL (6.5-10.1) Neutrophils (%) (Auto) 66.1 % (45.0-75.0) Lymphocytes (%) (Auto) 17.2 % (20.0-45.0) L Monocytes (%) (Auto) 8.9 % (1.0-10.0) Eosinophils (%) (Auto) 7.1 % (0.0-3.0) H Basophils (%) (Auto) 0.5 % (0.0-2.0) Sodium Level 136 MMOL/L (136-145) Potassium Level 4.6 MMOL/L (3.5-5.1) Chloride Level 104 MMOL/L (98-107) Carbon Dioxide Level 20 MMOL/L (21-32) L Anion Gap 12 mmol/L (5-15) Blood Urea Nitrogen 21 mg/dL (7-18) H Creatinine 1.1 MG/DL (0.55-1.30) Estimat Glomerular Filtration Rate > 60 mL/min (>60) Glucose Level 101 MG/DL (74-106) Calcium Level 9.4 MG/DL (8.5-10.1) Total Bilirubin 0.2 MG/DL (0.2-1.0) Aspartate Amino Transf (AST/SGOT) 23 U/L (15-37) Alanine Aminotransferase (ALT/SGPT) 16 U/L (12-78) Alkaline Phosphatase 143 U/L (46-116) H Pro-B-Type Natriuretic Peptide 710 pg/mL (0-125) H Total Protein 8.5 G/DL (6.4-8.2) H Albumin 2.8 G/DL (3.4-5.0) L Globulin 5.7 g/dL Albumin/Globulin Ratio 0.5 (1.0-2.7) L Current Medications Medications (Trade) Dose Ordered Sig/Wanda Route PRN Reason Start Time Stop Time Status Last Admin Dose Admin Acetaminophen (Tylenol) 650 mg Q4H PRN ORAL FEVER 12/28/17 22:00 01/27/18 21:59 Albuterol/ Ipratropium (Albuterol/ Ipratropium) 3 ml Q4H PRN HHN Shortness of Breath 12/28/17 22:00 01/02/18 21:59 Dextrose (Dextrose 50%) STAT PRN IV Hypoglycemia 12/28/17 22:00 01/27/18 21:59 Levothyroxine Sodium (Synthroid) 50 mcg DAILY@0630 GT 12/30/17 06:30 01/29/18 06:29 12/31/17 06:14 Lorazepam (Ativan 2mg/ml 1ml) 2 mg Q2H PRN IV For Anxiety 12/28/17 22:00 01/04/18 21:59 Morphine Sulfate (Morphine Sulfate) 4 mg Q4H PRN IVP Severe Pain (Pain Scale 7-10) 12/28/17 22:00 01/04/18 21:59 12/30/17 05:42 Ondansetron HCl (Zofran) 4 mg Q6H PRN IVP Nausea & Vomiting 12/28/17 22:00 01/27/18 21:59 Polyethylene Glycol (Miralax) 17 gm DAILYPRN PRN ORAL Constipation 12/28/17 22:00 01/27/18 21:59 Sodium Chloride 1,000 ml @ 75 mls/hr [id number] IV 12/29/17 08:30 01/28/18 08:29 12/31/17 02:00 Sucralfate (Carafate) 1 gm FOUR TIMES A DAY GT 12/29/17 09:00 01/28/18 08:59 12/31/17 09:02 Lisy Lai M.D. Dec 31, 2017 11:45
[2017-12-31 12:00] VITALS: BP 107/61
--- NOTE | 2017-12-31 12:41 | Diagnostic Imaging Report ---
Indication: Dyspnea Technique: One view of the chest Comparison: 12/29/2017 Findings: There is some atelectasis at the right lung base. Lungs and pleural spaces are otherwise clear. The heart size is normal. Tracheostomy is again demonstrated. Findings are essentially unchanged Impression: Right basilar atelectasis. No acute process otherwise
[2017-12-31] MEDS: Piperacillin/Tazobactam 3.375 GM in D5W 110 ML IVPB SCH ×2 (14:19→22:28)
[2017-12-31 16:00] VITALS: BP 104/68
[2017-12-31 20:00] VITALS: BP 134/72
[2018-01-01] VITALS: BP 127/67
[2018-01-01 04:00] VITALS: BP 108/64
[2018-01-01 04:49] LABS: HEMATOCRIT 24.8 % (42.0-52.0); HEMOGLOBIN 8.2 G/DL (14.2-18.0); MEAN CORPUSCULAR VOLUME 81 FL (80-99); PLATELET COUNT 341 K/UL (150-450); RED BLOOD COUNT 3.07 M/UL (4.70-6.10); RED CELL DISTRIBUTION WIDTH 13.8 % (11.6-14.8); WHITE BLOOD COUNT 19.8 K/UL (4.8-10.8)
[2018-01-01 05:02] LABS: ALANINE AMINOTRANSFERASE 18 U/L (12-78); ALBUMIN 2.4 G/DL (3.4-5.0); ALBUMIN/GLOBULIN RATIO 0.5 (1.0-2.7); ALKALINE PHOSPHATASE 119 U/L (46-116); ANION GAP 10 mmol/L (5-15); ASPARTATE AMINO TRANSFERASE 12 U/L (15-37); BILIRUBIN,TOTAL 0.2 MG/DL (0.2-1.0); BLOOD UREA NITROGEN 19 mg/dL (7-18); CALCIUM 8.9 MG/DL (8.5-10.1); CARBON DIOXIDE 22 MMOL/L (21-32); CHLORIDE 101 MMOL/L (98-107); CREATININE 1.3 MG/DL (0.55-1.30); PHOSPHORUS 2.8 MG/DL (2.5-4.9); POTASSIUM 3.8 MMOL/L (3.5-5.1); SODIUM 133 MMOL/L (136-145)
[2018-01-01] MEDS: Piperacillin/Tazobactam 3.375 GM in D5W 110 ML IVPB SCH ×3 (06:29→21:15)
[2018-01-01 08:00] VITALS: BP 127/66
[2018-01-01] MEDS: Sucralfate 1gm tab GT SCH ×4 (09:17→21:14)
[2018-01-01 10:15] LABS: APPEARANCE,URINE TURBID; BILIRUBIN, URINE NEGATIVE (NEGATIVE); COLOR,URINE PALE YELLOW; GLUCOSE, URINE (UA) NEGATIVE (NEGATIVE); KETONES,URINE NEGATIVE (NEGATIVE); LEUKOCYTE ESTERASE ,URINE 3+ (NEGATIVE); NITRITE,URINE POSITIVE (NEGATIVE); PH,URINE 6 (4.5-8.0); PROTEIN,URINE 2+ (NEGATIVE); UROBILINOGEN,URINE NORMAL MG/DL (0.0-1.0)
--- NOTE | 2018-01-01 10:24 | Pulmonology Progress Note ---
Assessment/Plan Problems: (1) Sepsis (2) Respiratory failure (3) Prerenal azotemia (4) longterm resident (5) Psychosis (6) Debility (7) Alzheimer's dementia Respiratory: monitor respiratory rate, adjust FIO2 Cardiac: continue to monitor HR/BP Renal: F/U I&O, keep IV fluid Infectious Disease: other - wbc rising Gastrointestinal: continue feedings/current rate Endocrine: monitor blood sugar Neurologic: PRN Ativan Affect: PRN ativan Prophylaxis: Protonix, Heparin Time Spent (Minutes): 40 Notes Reviewed: cath lab technologist, renal, ID Discussed with: nurses, consultants, rn case manager hospice Subjective ROS Limited/Unobtainable: No Interval Events: open eyes, comfortable Constitutional: Reports: no symptoms HEENT: Repors: no symptoms Allergies: Coded Allergies: NO KNOWN DRUG ALLERGIES (Verified Allergy, Unknown, 09/11/16) Objective Last 24 Hour Vital Signs Date Time Temp Pulse Resp B/P (MAP) Pulse Ox O2 Delivery O2 Flow Rate FiO2 01/01/18 08:38 78 16 40 01/01/18 08:00 40 01/01/18 08:00 78 01/01/18 08:00 98.4 86 16 127/66 98 Mechanical Ventilator 40 98.4 01/01/18 06:57 77 17 40 01/01/18 05:11 83 19 40 01/01/18 04:00 40 01/01/18 04:00 98.6 81 16 108/64 98 Mechanical Ventilator 40 98.6 01/01/18 03:47 80 01/01/18 03:01 79 18 40 01/01/18 01:12 97 19 50 01/01/18 00:00 98.5 96 20 127/67 99 Mechanical Ventilator 40 98.5 01/01/18 00:00 100 12/31/17 23:14 100 18 40 12/31/17 21:04 93 20 40 12/31/17 20:00 40 12/31/17 20:00 99.1 91 19 134/72 98 Mechanical Ventilator 40 99.1 12/31/17 19:24 88 12/31/17 19:02 90 19 40 12/31/17 16:59 85 18 40 12/31/17 16:00 97.9 87 18 104/68 99 Mechanical Ventilator 40 97.9 12/31/17 16:00 40 12/31/17 16:00 74 12/31/17 14:57 82 20 40 12/31/17 13:13 81 19 40 12/31/17 12:00 97.9 75 18 107/61 100 Mechanical Ventilator 40 97.9 12/31/17 12:00 40 12/31/17 12:00 72 12/31/17 11:02 97 18 40 Intake and Output 12/31/17 01/01/18 19:00 07:00 Intake Total 1160.0 ml 485.0 ml Output Total 550 ml 400 ml Balance 610.0 ml 85.0 ml Intake Free Water 200 ml 50 ml IV Total 335.0 ml 110.0 ml Tube Feeding 625 ml 325 ml Output Urine Total 550 ml 400 ml General Appearance: cachetic HEENT: normocephalic, atraumatic Respiratory/Chest: chest wall non-tender, accessory muscle use, crackles/rales Cardiovascular: normal peripheral pulses, normal rate Abdomen: normal bowel sounds, soft, non tender Genitourinary: normal external genitalia Extremities: no cyanosis Skin: no rash, no ulcers Microbiology Date/Time Source Procedure Growth Status 12/30/17 16:23 Blood Blood Culture - Preliminary NO GROWTH AFTER 24 HOURS Resulted 12/30/17 04:00 Blood Blood Culture - Preliminary NO GROWTH AFTER 24 HOURS Resulted Laboratory Tests 01/01/18 03:10: White Blood Count 19.8#H, Red Blood Count 3.07L, Hemoglobin 8.2L, Hematocrit 24.8L, Mean Corpuscular Volume 81, Mean Corpuscular Hemoglobin 26.7L, Mean Corpuscular Hemoglobin Concent 33.1, Red Cell Distribution Width 13.8, Platelet Count 341, Mean Platelet Volume 7.2, Neutrophils (%) (Auto) , Lymphocytes (%) ( Auto) , Monocytes (%) (Auto) , Eosinophils (%) (Auto) , Basophils (%) (Auto) , Neutrophils % (Manual) [Pending], Lymphocytes % (Manual) [Pending], Platelet Estimate [Pending], Platelet Morphology [Pending], Sodium Level 133L, Potassium Level 3.8, Chloride Level 101, Carbon Dioxide Level 22, Anion Gap 10, Blood Urea Nitrogen 19H, Creatinine 1.3, Estimat Glomerular Filtration Rate 54.7, Glucose Level 136H, Calcium Level 8.9, Phosphorus Level 2.8, Magnesium Level 1.8 , Total Bilirubin 0.2, Aspartate Amino Transf (AST/SGOT) 12L, Alanine Aminotransferase (ALT/SGPT) 18, Alkaline Phosphatase 119H, Total Protein 7.4, Albumin 2.4L, Globulin 5.0, Albumin/Globulin Ratio 0.5L 01/01/18 09:30: Urine Color Pale yellow, Urine Appearance Turbid, Urine pH 6, Urine Specific [place] 1.010, Urine Protein 2+H, Urine Glucose (UA) Negative, Urine Ketones Negative, Urine Occult Blood 2+H, Urine Nitrite PositiveH, Urine Bilirubin Negative, Urine Urobilinogen Normal, Urine Leukocyte Esterase 3+H, Urine RBC [ Pending], Urine WBC [Pending], Urine Squamous Epithelial Cells [Pending], Urine Bacteria [Pending] Current Medications Medications (Trade) Dose Ordered Sig/Wanda Route PRN Reason Start Time Stop Time Status Last Admin Dose Admin Acetaminophen (Tylenol) 650 mg Q4H PRN ORAL FEVER 12/28/17 22:00 01/27/18 21:59 Albuterol/ Ipratropium (Albuterol/ Ipratropium) 3 ml Q4H PRN HHN Shortness of Breath 12/28/17 22:00 01/02/18 21:59 Dextrose (Dextrose 50%) STAT PRN IV Hypoglycemia 12/28/17 22:00 01/27/18 21:59 Levothyroxine Sodium (Synthroid) 50 mcg DAILY@0630 GT 12/30/17 06:30 01/29/18 06:29 01/01/18 06:29 Lorazepam (Ativan 2mg/ml 1ml) 2 mg Q2H PRN IV For Anxiety 12/28/17 22:00 01/04/18 21:59 Morphine Sulfate (Morphine Sulfate) 4 mg Q4H PRN IVP Severe Pain (Pain Scale 7-10) 12/28/17 22:00 01/04/18 21:59 12/30/17 05:42 Ondansetron HCl (Zofran) 4 mg Q6H PRN IVP Nausea & Vomiting 12/28/17 22:00 01/27/18 21:59 Piperacillin Sod/ Tazobactam Sod 3.375 gm/Dextrose 110 ml @ 27.5 mls/hr EVERY 8 HOURS IVPB 4/23/18 14:00 01/05/18 13:59 01/01/18 06:29 Polyethylene Glycol (Miralax) 17 gm DAILYPRN PRN ORAL Constipation 12/28/17 22:00 01/27/18 21:59 Sucralfate (Carafate) 1 gm FOUR TIMES A DAY GT 12/29/17 09:00 01/28/18 08:59 01/01/18 09:17 Huma Keating MD Jan 01, 2018 10:24
[2018-01-01 12:00] VITALS: BP 107/68
--- NOTE | 2018-01-01 12:19 | Infectious Diseases Prog Note ---
Assessment/Plan Assessment/Plan ASSESSMENT: The patient is a 67-year-old male with, -. Leukocytosis, worsening- suspect 2ry to UTI -repeat u/a 01/01 WBC >100K. nit neg, leuk +3; ucx p -CXR 12/31: Right basilar atelectasis. No acute process otherwise -Bcx NTD -CXR: Mild bilateral interstitial edema versus infiltrates. ; sp cx MDR ABC and #2, GGS (colonizers) - Afebrile. - Pyuria/bacteriuria- likely UTI -u/a WBC 5-10, nit +, leuk +3; ucx>100K P, stuarti (S Ceftriaxone) -History of upper GI bleed. - History of chronic anemia status post PEG and bedbound. - Chronic respiratory failure. -. Status post trach and PEG. -. Functional quadriplegia. -. Encephalopathy. -. CAD. -. CHF. -. Hypothyroidism. -. Diabetes. -. Bipolar disorder/schizophrenia. PLAN: -. Continue Zosyn #2 for UTI pending repeat urine culture; will narrow based on results -will not treat MDR ABC in sputum as is colonizer -. Monitor CBC/BMP, temperatures. -. Monitor cultures (blood, sputum, urine). -change petty -Cdiff if diarrhea -. Management of anemia as per rest of the team. -. We will monitor the patient's clinical course and laboratories and based on those, we will do further recommendations. Subjective Allergies: Coded Allergies: NO KNOWN DRUG ALLERGIES (Verified Allergy, Unknown, 09/11/16) Subjective afebrile leukocytosis stable b/t 11-12 Objective Vital Signs Last 24 Hour Vital Signs Date Time Temp Pulse Resp B/P (MAP) Pulse Ox O2 Delivery O2 Flow Rate FiO2 01/01/18 10:31 76 16 40 01/01/18 08:38 78 16 40 01/01/18 08:00 40 01/01/18 08:00 78 01/01/18 08:00 98.4 86 16 127/66 98 Mechanical Ventilator 40 98.4 01/01/18 06:57 77 17 40 01/01/18 05:11 83 19 40 01/01/18 04:00 40 01/01/18 04:00 98.6 81 16 108/64 98 Mechanical Ventilator 40 98.6 01/01/18 03:47 80 01/01/18 03:01 79 18 40 01/01/18 01:12 97 19 50 01/01/18 00:00 98.5 96 20 127/67 99 Mechanical Ventilator 40 98.5 01/01/18 00:00 100 12/31/17 23:14 100 18 40 12/31/17 21:04 93 20 40 12/31/17 20:00 40 12/31/17 20:00 99.1 91 19 134/72 98 Mechanical Ventilator 40 99.1 12/31/17 19:24 88 12/31/17 19:02 90 19 40 12/31/17 16:59 85 18 40 12/31/17 16:00 97.9 87 18 104/68 99 Mechanical Ventilator 40 97.9 12/31/17 16:00 40 12/31/17 16:00 74 12/31/17 14:57 82 20 40 12/31/17 13:13 81 19 40 Height (Feet): 5 Height (Inches): 6.00 Weight (Pounds): 138 Objective HEENT: Mild pale conjunctivae. No icterus. NECK: No lymphadenopathy. CHEST: Coarse breathing sounds. HEART: S1 and S2. ABDOMEN: Soft. EXTREMITIES: No cyanosis. NEUROLOGIC: Awake and nonverbal. Microbiology Date/Time Source Procedure Growth Status 12/30/17 16:23 Blood Blood Culture - Preliminary NO GROWTH AFTER 24 HOURS Resulted 12/30/17 04:00 Blood Blood Culture - Preliminary NO GROWTH AFTER 24 HOURS Resulted Laboratory Tests Test 01/01/18 03:10 01/01/18 09:30 White Blood Count 19.8 K/UL (4.8-10.8) #H Red Blood Count 3.07 M/UL (4.70-6.10) L Hemoglobin 8.2 G/DL (14.2-18.0) L Hematocrit 24.8 % (42.0-52.0) L Mean Corpuscular Volume 81 FL (80-99) Mean Corpuscular Hemoglobin 26.7 PG (27.0-31.0) L Mean Corpuscular Hemoglobin Concent 33.1 G/DL (32.0-36.0) Red Cell Distribution Width 13.8 % (11.6-14.8) Platelet Count 341 K/UL (150-450) Mean Platelet Volume 7.2 FL (6.5-10.1) Neutrophils (%) (Auto) % (45.0-75.0) Lymphocytes (%) (Auto) % (20.0-45.0) Monocytes (%) (Auto) % (1.0-10.0) Eosinophils (%) (Auto) % (0.0-3.0) Basophils (%) (Auto) % (0.0-2.0) Differential Total Cells Counted 100 Neutrophils % (Manual) 88 % (45-75) H Lymphocytes % (Manual) 5 % (20-45) L Monocytes % (Manual) 5 % (1-10) Eosinophils % (Manual) 2 % (0-3) Basophils % (Manual) 0 % (0-2) Band Neutrophils 0 % (0-8) Platelet Estimate Adequate Platelet Morphology Normal Hypochromasia 1+ Sodium Level 133 MMOL/L (136-145) L Potassium Level 3.8 MMOL/L (3.5-5.1) Chloride Level 101 MMOL/L (98-107) Carbon Dioxide Level 22 MMOL/L (21-32) Anion Gap 10 mmol/L (5-15) Blood Urea Nitrogen 19 mg/dL (7-18) H Creatinine 1.3 MG/DL (0.55-1.30) Estimat Glomerular Filtration Rate 54.7 mL/min (>60) Glucose Level 136 MG/DL (74-106) H Calcium Level 8.9 MG/DL (8.5-10.1) Phosphorus Level 2.8 MG/DL (2.5-4.9) Magnesium Level 1.8 MG/DL (1.8-2.4) Total Bilirubin 0.2 MG/DL (0.2-1.0) Aspartate Amino Transf (AST/SGOT) 12 U/L (15-37) L Alanine Aminotransferase (ALT/SGPT) 18 U/L (12-78) Alkaline Phosphatase 119 U/L (46-116) H Total Protein 7.4 G/DL (6.4-8.2) Albumin 2.4 G/DL (3.4-5.0) L Globulin 5.0 g/dL Albumin/Globulin Ratio 0.5 (1.0-2.7) L Urine Color Pale yellow Urine Appearance Turbid Urine pH 6 (4.5-8.0) Urine Specific [place] 1.010 (1.005-1.035) Urine Protein 2+ (NEGATIVE) H Urine Glucose (UA) Negative (NEGATIVE) Urine Ketones Negative (NEGATIVE) Urine Occult Blood 2+ (NEGATIVE) H Urine Nitrite Positive (NEGATIVE) H Urine Bilirubin Negative (NEGATIVE) Urine Urobilinogen Normal MG/DL (0.0-1.0) Urine Leukocyte Esterase 3+ (NEGATIVE) H Urine RBC 10-15 /HPF (0 - 0) H Urine WBC Tntc /HPF (0 - 0) H Urine Squamous Epithelial Cells Few /LPF (NONE/OCC) Urine Bacteria Moderate /HPF (NONE) H Current Medications Medications (Trade) Dose Ordered Sig/Wanda Route PRN Reason Start Time Stop Time Status Last Admin Dose Admin Acetaminophen (Tylenol) 650 mg Q4H PRN ORAL FEVER 12/28/17 22:00 01/27/18 21:59 Albuterol/ Ipratropium (Albuterol/ Ipratropium) 3 ml Q4H PRN HHN Shortness of Breath 12/28/17 22:00 01/02/18 21:59 Dextrose (Dextrose 50%) STAT PRN IV Hypoglycemia 12/28/17 22:00 01/27/18 21:59 Levothyroxine Sodium (Synthroid) 50 mcg DAILY@0630 GT 12/30/17 06:30 01/29/18 06:29 01/01/18 06:29 Lorazepam (Ativan 2mg/ml 1ml) 2 mg Q2H PRN IV For Anxiety 12/28/17 22:00 01/04/18 21:59 Morphine Sulfate (Morphine Sulfate) 4 mg Q4H PRN IVP Severe Pain (Pain Scale 7-10) 12/28/17 22:00 01/04/18 21:59 12/30/17 05:42 Ondansetron HCl (Zofran) 4 mg Q6H PRN IVP Nausea & Vomiting 12/28/17 22:00 01/27/18 21:59 Piperacillin Sod/ Tazobactam Sod 3.375 gm/Dextrose 110 ml @ 27.5 mls/hr EVERY 8 HOURS IVPB 12/31/17 14:00 01/05/18 13:59 01/01/18 06:29 Polyethylene Glycol (Miralax) 17 gm DAILYPRN PRN ORAL Constipation 12/28/17 22:00 01/27/18 21:59 Sucralfate (Carafate) 1 gm FOUR TIMES A DAY GT 12/29/17 09:00 01/28/18 08:59 01/01/18 09:17 Lisy Lai M.D. Jan 01, 2018 12:19
--- NOTE | 2018-01-01 15:24 | GI Progress Note ---
Assessment/Plan Problems: (1) Dysphagia ICD Codes: R13.10 - Dysphagia, unspecified SNOMED: 46084162, 579208022 (2) Fecal impaction in rectum ICD Codes: K56.41 - Fecal impaction SNOMED: 25232739 (3) Anemia ICD Codes: D64.9 - Anemia, unspecified SNOMED: 079590785 (4) Iron deficiency ICD Codes: E61.1 - Iron deficiency SNOMED: 72522762 (5) Esophagitis ICD Codes: K20.9 - Esophagitis SNOMED: 54681035 (6) Protein-calorie malnutrition, severe ICD Codes: E43 - Unspecified severe protein-calorie malnutrition SNOMED: 856074310 (7) Feeding by G-tube ICD Codes: Z93.1 - Gastrostomy status SNOMED: 436558228, 214710500 Status: unchanged Status Narrative Discussed with Dr. Wilson. Assessment/Plan anemia work up monitor H&H, prn transfusions bowel regime ppi BID + carafate GTFs fu labs conservator will not sign consent for endoscopy unless life threatening. Subjective Subjective limited Objective Last 24 Hour Vital Signs Date Time Temp Pulse Resp B/P (MAP) Pulse Ox O2 Delivery O2 Flow Rate FiO2 01/01/18 14:38 76 16 40 01/01/18 12:47 79 16 40 01/01/18 12:00 84 01/01/18 12:00 98.7 78 18 107/68 100 Mechanical Ventilator 40 98.7 01/01/18 12:00 40 01/01/18 10:31 76 16 40 01/01/18 08:38 78 16 40 01/01/18 08:00 40 01/01/18 08:00 78 01/01/18 08:00 98.4 86 16 127/66 98 Mechanical Ventilator 40 98.4 01/01/18 06:57 77 17 40 01/01/18 05:11 83 19 40 01/01/18 04:00 40 01/01/18 04:00 98.6 81 16 108/64 98 Mechanical Ventilator 40 98.6 01/01/18 03:47 80 01/01/18 03:01 79 18 40 01/01/18 01:12 97 19 50 01/01/18 00:00 98.5 96 20 127/67 99 Mechanical Ventilator 40 98.5 01/01/18 00:00 100 12/31/17 23:14 100 18 40 12/31/17 21:04 93 20 40 12/31/17 20:00 40 12/31/17 20:00 99.1 91 19 134/72 98 Mechanical Ventilator 40 99.1 12/31/17 19:24 88 12/31/17 19:02 90 19 40 12/31/17 16:59 85 18 40 12/31/17 16:00 97.9 87 18 104/68 99 Mechanical Ventilator 40 97.9 12/31/17 16:00 40 12/31/17 16:00 74 Intake and Output 12/31/17 01/01/18 19:00 07:00 Intake Total 1160.0 ml 485.0 ml Output Total 550 ml 400 ml Balance 610.0 ml 85.0 ml Intake Free Water 200 ml 50 ml IV Total 335.0 ml 110.0 ml Tube Feeding 625 ml 325 ml Output Urine Total 550 ml 400 ml Laboratory Tests Test 01/01/18 03:10 01/01/18 09:30 White Blood Count 19.8 K/UL (4.8-10.8) #H Red Blood Count 3.07 M/UL (4.70-6.10) L Hemoglobin 8.2 G/DL (14.2-18.0) L Hematocrit 24.8 % (42.0-52.0) L Mean Corpuscular Volume 81 FL (80-99) Mean Corpuscular Hemoglobin 26.7 PG (27.0-31.0) L Mean Corpuscular Hemoglobin Concent 33.1 G/DL (32.0-36.0) Red Cell Distribution Width 13.8 % (11.6-14.8) Platelet Count 341 K/UL (150-450) Mean Platelet Volume 7.2 FL (6.5-10.1) Neutrophils (%) (Auto) % (45.0-75.0) Lymphocytes (%) (Auto) % (20.0-45.0) Monocytes (%) (Auto) % (1.0-10.0) Eosinophils (%) (Auto) % (0.0-3.0) Basophils (%) (Auto) % (0.0-2.0) Differential Total Cells Counted 100 Neutrophils % (Manual) 88 % (45-75) H Lymphocytes % (Manual) 5 % (20-45) L Monocytes % (Manual) 5 % (1-10) Eosinophils % (Manual) 2 % (0-3) Basophils % (Manual) 0 % (0-2) Band Neutrophils 0 % (0-8) Platelet Estimate Adequate Platelet Morphology Normal Hypochromasia 1+ Sodium Level 133 MMOL/L (136-145) L Potassium Level 3.8 MMOL/L (3.5-5.1) Chloride Level 101 MMOL/L (98-107) Carbon Dioxide Level 22 MMOL/L (21-32) Anion Gap 10 mmol/L (5-15) Blood Urea Nitrogen 19 mg/dL (7-18) H Creatinine 1.3 MG/DL (0.55-1.30) Estimat Glomerular Filtration Rate 54.7 mL/min (>60) Glucose Level 136 MG/DL (74-106) H Calcium Level 8.9 MG/DL (8.5-10.1) Phosphorus Level 2.8 MG/DL (2.5-4.9) Magnesium Level 1.8 MG/DL (1.8-2.4) Total Bilirubin 0.2 MG/DL (0.2-1.0) Aspartate Amino Transf (AST/SGOT) 12 U/L (15-37) L Alanine Aminotransferase (ALT/SGPT) 18 U/L (12-78) Alkaline Phosphatase 119 U/L (46-116) H Total Protein 7.4 G/DL (6.4-8.2) Albumin 2.4 G/DL (3.4-5.0) L Globulin 5.0 g/dL Albumin/Globulin Ratio 0.5 (1.0-2.7) L Urine Color Pale yellow Urine Appearance Turbid Urine pH 6 (4.5-8.0) Urine Specific [place] 1.010 (1.005-1.035) Urine Protein 2+ (NEGATIVE) H Urine Glucose (UA) Negative (NEGATIVE) Urine Ketones Negative (NEGATIVE) Urine Occult Blood 2+ (NEGATIVE) H Urine Nitrite Positive (NEGATIVE) H Urine Bilirubin Negative (NEGATIVE) Urine Urobilinogen Normal MG/DL (0.0-1.0) Urine Leukocyte Esterase 3+ (NEGATIVE) H Urine RBC 10-15 /HPF (0 - 0) H Urine WBC Tntc /HPF (0 - 0) H Urine Squamous Epithelial Cells Few /LPF (NONE/OCC) Urine Bacteria Moderate /HPF (NONE) H Height (Feet): 5 Height (Inches): 6.00 Weight (Pounds): 138 General Appearance: WD/WN, no apparent distress, alert Cardiovascular: normal rate Respiratory/Chest: normal breath sounds, no respiratory distress Abdominal Exam: normal bowel sounds, non tender, soft Extremities: normal range of motion, non-tender Arabella Quesada N.P. Jan 01, 2018 15:24
[2018-01-01 16:00] VITALS: BP 106/51
[2018-01-01 20:00] VITALS: BP 108/68
[2018-01-02] VITALS: BP 109/59
[2018-01-02 04:00] VITALS: BP 110/60
[2018-01-02 04:39] LABS: HEMOGLOBIN 7.6 G/DL (14.2-18.0); MEAN CORPUSCULAR VOLUME 80 FL (80-99); PLATELET COUNT 327 K/UL (150-450); RED BLOOD COUNT 2.86 M/UL (4.70-6.10); RED CELL DISTRIBUTION WIDTH 13.6 % (11.6-14.8); WHITE BLOOD COUNT 9.9 K/UL (4.8-10.8)
[2018-01-02 05:19] LABS: ALANINE AMINOTRANSFERASE 17 U/L (12-78); ALBUMIN 2.3 G/DL (3.4-5.0); ALBUMIN/GLOBULIN RATIO 0.5 (1.0-2.7); ALKALINE PHOSPHATASE 106 U/L (46-116); ANION GAP 8 mmol/L (5-15); ASPARTATE AMINO TRANSFERASE 13 U/L (15-37); BILIRUBIN,TOTAL 0.2 MG/DL (0.2-1.0); BLOOD UREA NITROGEN 19 mg/dL (7-18); CARBON DIOXIDE 24 MMOL/L (21-32); CHLORIDE 102 MMOL/L (98-107); CREATININE 1.3 MG/DL (0.55-1.30); SODIUM 134 MMOL/L (136-145)
[2018-01-02] MEDS: Piperacillin/Tazobactam 3.375 GM in D5W 110 ML IVPB SCH ×3 (05:59→22:38)
[2018-01-02 08:00] VITALS: BP 103/65
[2018-01-02] MEDS: Sucralfate 1gm tab GT SCH ×4 (09:38→21:50)
--- NOTE | 2018-01-02 10:33 | Pulmonology Progress Note ---
Assessment/Plan Problems: (1) Sepsis (2) Respiratory failure (3) Prerenal azotemia (4) senior living resident (5) Psychosis (6) Debility (7) Alzheimer's dementia Respiratory: monitor respiratory rate, adjust FIO2, CXR Cardiac: continue pressors, continue to monitor HR/BP Renal: F/U I&O, keep IV fluid Infectious Disease: check cultures Gastrointestinal: continue feedings/current rate Endocrine: monitor blood sugar, check TSH, check HgA1C, continue sliding scale insulin Hematologic: monitor H/H, transfuse if hgb<8.5 Neurologic: PRN Morphine, keep patient comfortable Affect: PRN ativan Prophylaxis: Protonix Time Spent (Minutes): 40 Notes 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: 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 laboratory technician, 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 with: nurses, consultants, high risk case manager Subjective ROS Limited/Unobtainable: No Constitutional: Reports: no symptoms HEENT: Repors: no symptoms Respiratory: Reports: no symptoms Cardiovascular: Reports: no symptoms Allergies: Coded Allergies: NO KNOWN DRUG ALLERGIES (Verified Allergy, Unknown, 09/11/16) Objective Last 24 Hour Vital Signs Date Time Temp Pulse Resp B/P (MAP) Pulse Ox O2 Delivery O2 Flow Rate FiO2 01/02/18 09:25 72 16 40 01/02/18 08:25 40 01/02/18 08:00 98.0 74 16 103/65 100 Mechanical Ventilator 40 98.0 01/02/18 08:00 67 01/02/18 07:29 77 16 40 01/02/18 05:04 72 16 40 01/02/18 04:00 40 01/02/18 04:00 74 01/02/18 04:00 97.9 70 16 110/60 100 Mechanical Ventilator 40 97.9 01/02/18 03:21 74 16 40 01/02/18 01:20 71 16 40 01/02/18 00:00 40 01/02/18 00:00 98.5 75 16 109/59 100 Mechanical Ventilator 40 98.5 01/02/18 00:00 76 01/01/18 23:04 73 16 40 01/01/18 21:24 76 16 40 01/01/18 20:00 98.3 67 16 108/68 100 Mechanical Ventilator 40 98.3 01/01/18 20:00 40 01/01/18 20:00 76 01/01/18 19:24 73 16 40 01/01/18 16:41 83 01/01/18 16:39 81 23 40 01/01/18 16:00 40 01/01/18 16:00 98.5 86 16 106/51 100 Mechanical Ventilator 40 98.5 01/01/18 14:38 76 16 40 01/01/18 12:47 79 16 40 01/01/18 12:00 84 01/01/18 12:00 98.7 78 18 107/68 100 Mechanical Ventilator 40 98.7 01/01/18 12:00 40 Intake and Output 01/01/18 01/02/18 19:00 07:00 Intake Total 1202.5 ml 832.5 ml Output Total 1000 ml Balance 202.5 ml 832.5 ml Intake Free Water 250 ml 50 ml IV Total 192.5 ml 137.5 ml Tube Feeding 660 ml 495 ml Other 100 ml 150 ml Output Urine Total 1000 ml General Appearance: WD/WN HEENT: normocephalic, anicteric Respiratory/Chest: chest wall non-tender, lungs clear Cardiovascular: normal peripheral pulses, normal rate, regular rhythm Abdomen: normal bowel sounds, soft, non tender Genitourinary: normal external genitalia Skin: no rash, no ulcers Neurologic/Psychiatric: [facility] II-XII grossly normal Lymphatic: no neck adenopathy Musculoskeletal: normal muscle bulk Microbiology Date/Time Source Procedure Growth Status 12/30/17 16:23 Blood Blood Culture - Preliminary NO GROWTH AFTER 48 HOURS Resulted 01/01/18 09:30 Urine,Clean Catch Urine Culture - Preliminary Gram Negative Bacillus 1 Resulted Laboratory Tests 01/02/18 03:50: White Blood Count 9.9, Red Blood Count 2.86L, Hemoglobin 7.6L, Hematocrit 23.0L , Mean Corpuscular Volume 80, Mean Corpuscular Hemoglobin 26.7L, Mean Corpuscular Hemoglobin Concent 33.2, Red Cell Distribution Width 13.6, Platelet Count 327, Mean Platelet Volume 7.1, Neutrophils (%) (Auto) , Lymphocytes (%) ( Auto) , Monocytes (%) (Auto) , Eosinophils (%) (Auto) , Basophils (%) (Auto) , Differential Total Cells Counted 100, Neutrophils % (Manual) 72, Lymphocytes % ( Manual) 13L, Monocytes % (Manual) 8, Eosinophils % (Manual) 6H, Basophils % ( Manual) 0, Band Neutrophils 1, Platelet Estimate Adequate, Platelet Morphology Normal, Hypochromasia 1+, Sodium Level 134L, Potassium Level 4.0, Chloride Level 102, Carbon Dioxide Level 24, Anion Gap 8, Blood Urea Nitrogen 19H, Creatinine 1.3, Estimat Glomerular Filtration Rate 54.7, Glucose Level 124H, Calcium Level 9.0, Phosphorus Level 3.0, Magnesium Level 1.8, Total Bilirubin 0.2, Aspartate Amino Transf (AST/SGOT) 13L, Alanine Aminotransferase (ALT/SGPT) 17, Alkaline Phosphatase 106, Total Protein 7.3, Albumin 2.3L, Globulin 5.0, Albumin/Globulin Ratio 0.5L Current Medications Medications (Trade) Dose Ordered Sig/Wanda Route PRN Reason Start Time Stop Time Status Last Admin Dose Admin Acetaminophen (Tylenol) 650 mg Q4H PRN ORAL FEVER 12/28/17 22:00 01/27/18 21:59 Albuterol/ Ipratropium (Albuterol/ Ipratropium) 3 ml Q4H PRN HHN Shortness of Breath 12/28/17 22:00 01/02/18 21:59 Dextrose (Dextrose 50%) 25 ml STAT PRN IV hypoglycemia 01/01/18 14:30 01/31/18 14:29 Dextrose (Dextrose 50%) 50 ml STAT PRN IV Hypoglycemia 01/01/18 14:30 01/27/18 21:59 Levothyroxine Sodium (Synthroid) 50 mcg DAILY@0630 GT 12/30/17 06:30 01/29/18 06:29 01/02/18 05:59 Lorazepam (Ativan 2mg/ml 1ml) 2 mg Q2H PRN IV For Anxiety 12/28/17 22:00 01/04/18 21:59 Morphine Sulfate (Morphine Sulfate) 4 mg Q4H PRN IVP Severe Pain (Pain Scale 7-10) 12/28/17 22:00 01/04/18 21:59 12/30/17 05:42 Ondansetron HCl (Zofran) 4 mg Q6H PRN IVP Nausea & Vomiting 12/28/17 22:00 01/27/18 21:59 Piperacillin Sod/ Tazobactam Sod 3.375 gm/Dextrose 110 ml @ 27.5 mls/hr EVERY 8 HOURS IVPB 12/31/17 14:00 01/05/18 13:59 01/02/18 05:59 Polyethylene Glycol (Miralax) 17 gm DAILYPRN PRN ORAL Constipation 12/28/17 22:00 01/27/18 21:59 Sucralfate (Carafate) 1 gm FOUR TIMES A DAY GT 12/29/17 09:00 01/28/18 08:59 01/02/18 09:38 Huma Keating MD Jan 02, 2018 10:33
[2018-01-02 12:00] VITALS: BP 117/70
--- NOTE | 2018-01-02 12:54 | Infectious Diseases Prog Note ---
Assessment/Plan Assessment/Plan ASSESSMENT: The patient is a 67-year-old male with, -. Leukocytosis, resolved- suspect 2ry to UTI -repeat u/a 01/01 WBC >100K. nit neg, leuk +3; ucx >100k GNRs -CXR 12/31: Right basilar atelectasis. No acute process otherwise -Bcx NTD -CXR: Mild bilateral interstitial edema versus infiltrates. ; sp cx MDR ABC (S Polymixin B, Colistin, Minocyclne) and MDR PsA (S Gentamicin, I Cefepime ) , GGS (colonizers) - Afebrile. - Pyuria/bacteriuria- likely UTI -u/a WBC 5-10, nit +, leuk +3; ucx>100K P, stuarti (S Ceftriaxone) -History of upper GI bleed. - History of chronic anemia status post PEG and bedbound. - Chronic respiratory failure. -. Status post trach and PEG. -. Functional quadriplegia. -. Encephalopathy. -. CAD. -. CHF. -. Hypothyroidism. -. Diabetes. -. Bipolar disorder/schizophrenia. -VRE, MRSA colonized PLAN: -. Continue Zosyn #3/7-10 for UTI pending repeat urine culture; will narrow based on results -will not treat MDR ABC and MDR PsA in sputum as they are colonizers -. Monitor CBC/BMP, temperatures. -. Monitor cultures (blood,urine). -Cdiff if diarrhea -. Management of anemia as per rest of the team. -. We will monitor the patient's clinical course and laboratories and based on those, we will do further recommendations. Subjective Allergies: Coded Allergies: NO KNOWN DRUG ALLERGIES (Verified Allergy, Unknown, 09/11/16) Subjective afebrile leukocytosis resolved Bcx NTD Objective Vital Signs Last 24 Hour Vital Signs Date Time Temp Pulse Resp B/P (MAP) Pulse Ox O2 Delivery O2 Flow Rate FiO2 01/02/18 12:00 98.6 80 17 117/70 100 Mechanical Ventilator 40 98.6 01/02/18 12:00 40 01/02/18 11:13 68 16 40 01/02/18 09:25 72 16 40 01/02/18 08:25 40 01/02/18 08:00 98.0 74 16 103/65 100 Mechanical Ventilator 40 98.0 01/02/18 08:00 67 01/02/18 07:29 77 16 40 01/02/18 05:04 72 16 40 01/02/18 04:00 40 01/02/18 04:00 74 01/02/18 04:00 97.9 70 16 110/60 100 Mechanical Ventilator 40 97.9 01/02/18 03:21 74 16 40 01/02/18 01:20 71 16 40 01/02/18 00:00 40 01/02/18 00:00 98.5 75 16 109/59 100 Mechanical Ventilator 40 98.5 01/02/18 00:00 76 01/01/18 23:04 73 16 40 01/01/18 21:24 76 16 40 01/01/18 20:00 98.3 67 16 108/68 100 Mechanical Ventilator 40 98.3 01/01/18 20:00 40 01/01/18 20:00 76 01/01/18 19:24 73 16 40 01/01/18 16:41 83 01/01/18 16:39 81 23 40 01/01/18 16:00 40 01/01/18 16:00 98.5 86 16 106/51 100 Mechanical Ventilator 40 98.5 01/01/18 14:38 76 16 40 Height (Feet): 5 Height (Inches): 6.00 Weight (Pounds): 140 Objective HEENT: Mild pale conjunctivae. No icterus. NECK: No lymphadenopathy. CHEST: Coarse breathing sounds. HEART: S1 and S2. ABDOMEN: Soft. EXTREMITIES: No cyanosis. NEUROLOGIC: Awake and nonverbal. Microbiology Date/Time Source Procedure Growth Status 12/30/17 16:23 Blood Blood Culture - Preliminary NO GROWTH AFTER 48 HOURS Resulted 01/01/18 09:30 Urine,Clean Catch Urine Culture - Preliminary Gram Negative Bacillus 1 Resulted Laboratory Tests Test 01/02/18 03:50 White Blood Count 9.9 K/UL (4.8-10.8) Red Blood Count 2.86 M/UL (4.70-6.10) L Hemoglobin 7.6 G/DL (14.2-18.0) L Hematocrit 23.0 % (42.0-52.0) L Mean Corpuscular Volume 80 FL (80-99) Mean Corpuscular Hemoglobin 26.7 PG (27.0-31.0) L Mean Corpuscular Hemoglobin Concent 33.2 G/DL (32.0-36.0) Red Cell Distribution Width 13.6 % (11.6-14.8) Platelet Count 327 K/UL (150-450) Mean Platelet Volume 7.1 FL (6.5-10.1) Neutrophils (%) (Auto) % (45.0-75.0) Lymphocytes (%) (Auto) % (20.0-45.0) Monocytes (%) (Auto) % (1.0-10.0) Eosinophils (%) (Auto) % (0.0-3.0) Basophils (%) (Auto) % (0.0-2.0) Differential Total Cells Counted 100 Neutrophils % (Manual) 72 % (45-75) Lymphocytes % (Manual) 13 % (20-45) L Monocytes % (Manual) 8 % (1-10) Eosinophils % (Manual) 6 % (0-3) H Basophils % (Manual) 0 % (0-2) Band Neutrophils 1 % (0-8) Platelet Estimate Adequate Platelet Morphology Normal Hypochromasia 1+ Sodium Level 134 MMOL/L (136-145) L Potassium Level 4.0 MMOL/L (3.5-5.1) Chloride Level 102 MMOL/L (98-107) Carbon Dioxide Level 24 MMOL/L (21-32) Anion Gap 8 mmol/L (5-15) Blood Urea Nitrogen 19 mg/dL (7-18) H Creatinine 1.3 MG/DL (0.55-1.30) Estimat Glomerular Filtration Rate 54.7 mL/min (>60) Glucose Level 124 MG/DL (74-106) H Calcium Level 9.0 MG/DL (8.5-10.1) Phosphorus Level 3.0 MG/DL (2.5-4.9) Magnesium Level 1.8 MG/DL (1.8-2.4) Total Bilirubin 0.2 MG/DL (0.2-1.0) Aspartate Amino Transf (AST/SGOT) 13 U/L (15-37) L Alanine Aminotransferase (ALT/SGPT) 17 U/L (12-78) Alkaline Phosphatase 106 U/L (46-116) Total Protein 7.3 G/DL (6.4-8.2) Albumin 2.3 G/DL (3.4-5.0) L Globulin 5.0 g/dL Albumin/Globulin Ratio 0.5 (1.0-2.7) L Current Medications Medications (Trade) Dose Ordered Sig/Wanda Route PRN Reason Start Time Stop Time Status Last Admin Dose Admin Acetaminophen (Tylenol) 650 mg Q4H PRN ORAL FEVER 12/28/17 22:00 01/27/18 21:59 Albuterol/ Ipratropium (Albuterol/ Ipratropium) 3 ml Q4H PRN HHN Shortness of Breath 12/28/17 22:00 01/02/18 21:59 Dextrose (Dextrose 50%) 25 ml STAT PRN IV hypoglycemia 01/01/18 14:30 01/31/18 14:29 Dextrose (Dextrose 50%) 50 ml STAT PRN IV Hypoglycemia 01/01/18 14:30 01/27/18 21:59 Levothyroxine Sodium (Synthroid) 50 mcg DAILY@0630 GT 12/30/17 06:30 01/29/18 06:29 01/02/18 05:59 Lorazepam (Ativan 2mg/ml 1ml) 2 mg Q2H PRN IV For Anxiety 12/28/17 22:00 01/04/18 21:59 Morphine Sulfate (Morphine Sulfate) 4 mg Q4H PRN IVP Severe Pain (Pain Scale 7-10) 12/28/17 22:00 01/04/18 21:59 12/30/17 05:42 Ondansetron HCl (Zofran) 4 mg Q6H PRN IVP Nausea & Vomiting 12/28/17 22:00 01/27/18 21:59 Piperacillin Sod/ Tazobactam Sod 3.375 gm/Dextrose 110 ml @ 27.5 mls/hr EVERY 8 HOURS IVPB 12/31/17 14:00 01/05/18 13:59 01/02/18 05:59 Polyethylene Glycol (Miralax) 17 gm DAILYPRN PRN ORAL Constipation 12/28/17 22:00 01/27/18 21:59 Sucralfate (Carafate) 1 gm FOUR TIMES A DAY GT 12/29/17 09:00 01/28/18 08:59 01/02/18 09:38 Lisy Lai M.D. Jan 02, 2018 12:54
--- NOTE | 2018-01-02 13:35 | GI Progress Note ---
Assessment/Plan Problems: (1) Dysphagia ICD Codes: R13.10 - Dysphagia, unspecified SNOMED: 13556786, 448802542 (2) Fecal impaction in rectum ICD Codes: K56.41 - Fecal impaction SNOMED: 34501138 (3) Anemia ICD Codes: D64.9 - Anemia, unspecified SNOMED: 296321113 (4) Iron deficiency ICD Codes: E61.1 - Iron deficiency SNOMED: 64989424 (5) Esophagitis ICD Codes: K20.9 - Esophagitis SNOMED: 97178323 (6) Protein-calorie malnutrition, severe ICD Codes: E43 - Unspecified severe protein-calorie malnutrition SNOMED: 342852499 (7) Feeding by G-tube ICD Codes: Z93.1 - Gastrostomy status SNOMED: 125942437, 399431422 Status: stable Status Narrative Discussed with Dr. Wilson. Assessment/Plan anemia work up monitor H&H, prn transfusions >> 1 unit today bowel regime ppi BID + carafate GTFs fu labs conservator will not sign consent for endoscopy unless life threatening. Subjective Subjective limited Objective Last 24 Hour Vital Signs Date Time Temp Pulse Resp B/P (MAP) Pulse Ox O2 Delivery O2 Flow Rate FiO2 01/02/18 13:13 80 22 40 01/02/18 12:00 98.6 80 17 117/70 100 Mechanical Ventilator 40 98.6 01/02/18 12:00 40 01/02/18 11:13 68 16 40 01/02/18 09:25 72 16 40 01/02/18 08:25 40 01/02/18 08:00 98.0 74 16 103/65 100 Mechanical Ventilator 40 98.0 01/02/18 08:00 67 01/02/18 07:29 77 16 40 01/02/18 05:04 72 16 40 01/02/18 04:00 40 01/02/18 04:00 74 01/02/18 04:00 97.9 70 16 110/60 100 Mechanical Ventilator 40 97.9 01/02/18 03:21 74 16 40 01/02/18 01:20 71 16 40 01/02/18 00:00 40 01/02/18 00:00 98.5 75 16 109/59 100 Mechanical Ventilator 40 98.5 01/02/18 00:00 76 01/01/18 23:04 73 16 40 01/01/18 21:24 76 16 40 01/01/18 20:00 98.3 67 16 108/68 100 Mechanical Ventilator 40 98.3 01/01/18 20:00 40 01/01/18 20:00 76 01/01/18 19:24 73 16 40 01/01/18 16:41 83 01/01/18 16:39 81 23 40 01/01/18 16:00 40 01/01/18 16:00 98.5 86 16 106/51 100 Mechanical Ventilator 40 98.5 01/01/18 14:38 76 16 40 Intake and Output 01/01/18 01/02/18 19:00 07:00 Intake Total 1202.5 ml 832.5 ml Output Total 1000 ml Balance 202.5 ml 832.5 ml Intake Free Water 250 ml 50 ml IV Total 192.5 ml 137.5 ml Tube Feeding 660 ml 495 ml Other 100 ml 150 ml Output Urine Total 1000 ml Laboratory Tests Test 01/02/18 03:50 White Blood Count 9.9 K/UL (4.8-10.8) Red Blood Count 2.86 M/UL (4.70-6.10) L Hemoglobin 7.6 G/DL (14.2-18.0) L Hematocrit 23.0 % (42.0-52.0) L Mean Corpuscular Volume 80 FL (80-99) Mean Corpuscular Hemoglobin 26.7 PG (27.0-31.0) L Mean Corpuscular Hemoglobin Concent 33.2 G/DL (32.0-36.0) Red Cell Distribution Width 13.6 % (11.6-14.8) Platelet Count 327 K/UL (150-450) Mean Platelet Volume 7.1 FL (6.5-10.1) Neutrophils (%) (Auto) % (45.0-75.0) Lymphocytes (%) (Auto) % (20.0-45.0) Monocytes (%) (Auto) % (1.0-10.0) Eosinophils (%) (Auto) % (0.0-3.0) Basophils (%) (Auto) % (0.0-2.0) Differential Total Cells Counted 100 Neutrophils % (Manual) 72 % (45-75) Lymphocytes % (Manual) 13 % (20-45) L Monocytes % (Manual) 8 % (1-10) Eosinophils % (Manual) 6 % (0-3) H Basophils % (Manual) 0 % (0-2) Band Neutrophils 1 % (0-8) Platelet Estimate Adequate Platelet Morphology Normal Hypochromasia 1+ Sodium Level 134 MMOL/L (136-145) L Potassium Level 4.0 MMOL/L (3.5-5.1) Chloride Level 102 MMOL/L (98-107) Carbon Dioxide Level 24 MMOL/L (21-32) Anion Gap 8 mmol/L (5-15) Blood Urea Nitrogen 19 mg/dL (7-18) H Creatinine 1.3 MG/DL (0.55-1.30) Estimat Glomerular Filtration Rate 54.7 mL/min (>60) Glucose Level 124 MG/DL (74-106) H Calcium Level 9.0 MG/DL (8.5-10.1) Phosphorus Level 3.0 MG/DL (2.5-4.9) Magnesium Level 1.8 MG/DL (1.8-2.4) Total Bilirubin 0.2 MG/DL (0.2-1.0) Aspartate Amino Transf (AST/SGOT) 13 U/L (15-37) L Alanine Aminotransferase (ALT/SGPT) 17 U/L (12-78) Alkaline Phosphatase 106 U/L (46-116) Total Protein 7.3 G/DL (6.4-8.2) Albumin 2.3 G/DL (3.4-5.0) L Globulin 5.0 g/dL Albumin/Globulin Ratio 0.5 (1.0-2.7) L Height (Feet): 5 Height (Inches): 6.00 Weight (Pounds): 140 General Appearance: no apparent distress Cardiovascular: normal rate Respiratory/Chest: no respiratory distress, other - mech vent Abdominal Exam: normal bowel sounds, non tender, soft, GT site - c/d/i Extremities: non-tender Arabella Quesada.Kemal Jan 02, 2018 13:35
--- NOTE | 2018-01-02 14:36 | General Progress Note ---
Progress Note Progress Note pt needs blood transfusion, He doesn't have any family members. Two physicians need to sign the consent for him to get blood transfusion. Huma Keating MD Jan 02, 2018 14:36
[2018-01-02 16:00] VITALS: BP 134/69
[2018-01-02] MEDS ORDERED: NS 275ml ONE (16:34)
[2018-01-02] MEDS ORDERED: Acetaminophen 500mg (ES) tab ORAL PRN (18:45)
[2018-01-02 20:00] VITALS: BP 119/69
[2018-01-03] VITALS: BP 138/68
[2018-01-03 04:00] VITALS: BP 125/73
[2018-01-03] MEDS: Piperacillin/Tazobactam 3.375 GM in D5W 110 ML IVPB SCH (06:33)
[2018-01-03 06:59] LABS: BASOPHILS % (AUTO) 0.4 % (0.0-2.0); EOSINOPHILS % (AUTO) 3.2 % (0.0-3.0); HEMATOCRIT 27.4 % (42.0-52.0); HEMOGLOBIN 9.2 G/DL (14.2-18.0); LYMPHOCYTES % (AUTO) 7.5 % (20.0-45.0); MEAN CORPUSCULAR VOLUME 81 FL (80-99); MONOCYTES % (AUTO) 6.1 % (1.0-10.0); NEUTROPHILS % (AUTO) 82.8 % (45.0-75.0); PLATELET COUNT 360 K/UL (150-450); RED BLOOD COUNT 3.38 M/UL (4.70-6.10); RED CELL DISTRIBUTION WIDTH 13.8 % (11.6-14.8); WHITE BLOOD COUNT 17.3 K/UL (4.8-10.8)
[2018-01-03 07:15] LABS: % IRON SATURATION 17 % (15-50); IRON 35 ug/dL (50-175); TOTAL IRON BINDING CAPACITY 205 ug/dL (250-450)
[2018-01-03 07:38] LABS: ALANINE AMINOTRANSFERASE 22 U/L (12-78); ALBUMIN 2.5 G/DL (3.4-5.0); ALBUMIN/GLOBULIN RATIO 0.5 (1.0-2.7); ALKALINE PHOSPHATASE 113 U/L (46-116); ANION GAP 11 mmol/L (5-15); ASPARTATE AMINO TRANSFERASE 12 U/L (15-37); BILIRUBIN,TOTAL 0.5 MG/DL (0.2-1.0); BLOOD UREA NITROGEN 18 mg/dL (7-18); CALCIUM 8.8 MG/DL (8.5-10.1); CARBON DIOXIDE 23 MMOL/L (21-32); CHLORIDE 100 MMOL/L (98-107); CREATININE 1.2 MG/DL (0.55-1.30); FERRITIN 86 NG/ML (8-388); POTASSIUM 3.9 MMOL/L (3.5-5.1); SODIUM 134 MMOL/L (136-145)
[2018-01-03 08:00] VITALS: BP 121/58
[2018-01-03 08:38] LABS: BASOPHILS % (AUTO) 0.4 % (0.0-2.0); EOSINOPHILS % (AUTO) 4.3 % (0.0-3.0); HEMATOCRIT 28.6 % (42.0-52.0); HEMOGLOBIN 9.4 G/DL (14.2-18.0); MEAN CORPUSCULAR VOLUME 81 FL (80-99); MONOCYTES % (AUTO) 6.5 % (1.0-10.0); NEUTROPHILS % (AUTO) 77.8 % (45.0-75.0); PLATELET COUNT 390 K/UL (150-450); RED BLOOD COUNT 3.53 M/UL (4.70-6.10); RED CELL DISTRIBUTION WIDTH 13.8 % (11.6-14.8); WHITE BLOOD COUNT 15.8 K/UL (4.8-10.8)
[2018-01-03] MEDS: Sucralfate 1gm tab GT SCH ×4 (10:10→20:19)
--- NOTE | 2018-01-03 11:14 | Pulmonology Progress Note ---
Assessment/Plan Problems: (1) Sepsis (2) Respiratory failure (3) Prerenal azotemia (4) [facility] resident (5) Psychosis (6) Debility (7) Alzheimer's dementia Respiratory: monitor respiratory rate, adjust FIO2, CXR Cardiac: continue pressors, stop pressors, continue to monitor HR/BP Renal: F/U I&O Infectious Disease: check cultures Gastrointestinal: continue feedings/current rate Endocrine: monitor blood sugar, check HgA1C, continue sliding scale insulin Hematologic: monitor H/H, transfuse if hgb<8.5 Neurologic: PRN Ativan, PRN Morphine, keep patient comfortable Affect: PRN ativan Notes Reviewed: cardio, 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 with: consultants, counseling case manager Subjective ROS Limited/Unobtainable: No Constitutional: Reports: no symptoms HEENT: Repors: no symptoms Allergies: Coded Allergies: NO KNOWN DRUG ALLERGIES (Verified Allergy, Unknown, 09/11/16) Objective Last 24 Hour Vital Signs Date Time Temp Pulse Resp B/P (MAP) Pulse Ox O2 Delivery O2 Flow Rate FiO2 01/03/18 11:03 73 16 40 01/03/18 09:08 64 16 40 01/03/18 08:00 97.3 74 16 121/58 100 Mechanical Ventilator 40 97.3 01/03/18 08:00 40 01/03/18 08:00 73 01/03/18 06:40 67 16 40 01/03/18 05:00 78 19 40 01/03/18 04:00 40 01/03/18 04:00 98.0 78 16 125/73 100 Mechanical Ventilator 40 98.0 01/03/18 04:00 84 01/03/18 02:46 86 16 40 01/03/18 01:23 84 16 40 01/03/18 00:00 78 01/03/18 00:00 40 01/03/18 00:00 98.5 88 18 138/68 96 Mechanical Ventilator 40 98.5 01/02/18 22:48 88 17 40 01/02/18 21:40 86 16 40 01/02/18 20:00 98.5 77 17 119/69 100 Mechanical Ventilator 40 98.5 01/02/18 20:00 75 01/02/18 20:00 40 01/02/18 19:30 83 18 40 01/02/18 16:53 89 20 40 01/02/18 16:00 78 01/02/18 16:00 40 01/02/18 16:00 98.8 83 16 134/69 100 Mechanical Ventilator 40 98.8 01/02/18 14:59 80 16 40 01/02/18 13:13 80 22 40 01/02/18 12:00 98.6 80 17 117/70 100 Mechanical Ventilator 40 98.6 01/02/18 12:00 40 01/02/18 12:00 79 Intake and Output 01/02/18 01/03/18 19:00 07:00 Intake Total 782.5 ml 685.0 ml Output Total 175 ml Balance 607.5 ml 685.0 ml Intake Free Water 0 ml IV Total 192.5 ml 110.0 ml Tube Feeding 550 ml 495 ml Other 40 ml 80 ml Output Urine Total 175 ml # Voids 1 General Appearance: WD/WN HEENT: normocephalic, atraumatic Respiratory/Chest: chest wall non-tender, crackles/rales Cardiovascular: normal peripheral pulses, normal rate Abdomen: normal bowel sounds, soft, non tender Genitourinary: normal external genitalia Extremities: no cyanosis Skin: no rash Neurologic/Psychiatric: knowledge manager II-XII grossly normal Lymphatic: no neck adenopathy Microbiology Date/Time Source Procedure Growth Status 01/01/18 12:30 Blood Blood Culture - Preliminary NO GROWTH AFTER 24 HOURS Resulted 01/01/18 12:25 Blood Blood Culture - Preliminary NO GROWTH AFTER 24 HOURS Resulted 01/01/18 09:30 Urine,Clean Catch Urine Culture - Final Providencia Stuartii Complete Laboratory Tests 01/03/18 06:00: White Blood Count 17.3#H, Red Blood Count 3.38L, Hemoglobin 9.2L, Hematocrit 27.4L, Mean Corpuscular Volume 81, Mean Corpuscular Hemoglobin 27.2, Mean Corpuscular Hemoglobin Concent 33.5, Red Cell Distribution Width 13.8, Platelet Count 360, Mean Platelet Volume 7.5, Neutrophils (%) (Auto) 82.8H, Lymphocytes ( %) (Auto) 7.5L, Monocytes (%) (Auto) 6.1, Eosinophils (%) (Auto) 3.2H, Basophils (%) (Auto) 0.4, Sodium Level 134L, Potassium Level 3.9, Chloride Level 100, Carbon Dioxide Level 23, Anion Gap 11, Blood Urea Nitrogen 18, Creatinine 1.2, Estimat Glomerular Filtration Rate > 60, Glucose Level 130H, Calcium Level 8.8, Phosphorus Level 3.0, Magnesium Level 2.0, Iron Level 35L, Total Iron Binding Capacity 205L, Percent Iron Saturation 17, Unsaturated Iron Binding 170, Ferritin 86, Total Bilirubin 0.5, Aspartate Amino Transf (AST/SGOT ) 12L, Alanine Aminotransferase (ALT/SGPT) 22, Alkaline Phosphatase 113, Total Protein 7.7, Albumin 2.5L, Globulin 5.2, Albumin/Globulin Ratio 0.5L 01/03/18 08:00: White Blood Count 15.8H, Red Blood Count 3.53L, Hemoglobin 9.4L, Hematocrit 28.6L, Mean Corpuscular Volume 81, Mean Corpuscular Hemoglobin 26.5L, Mean Corpuscular Hemoglobin Concent 32.7, Red Cell Distribution Width 13.8, Platelet Count 390, Mean Platelet Volume 6.6, Neutrophils (%) (Auto) 77.8H, Lymphocytes ( %) (Auto) 11.0L, Monocytes (%) (Auto) 6.5, Eosinophils (%) (Auto) 4.3H, Basophils (%) (Auto) 0.4 Current Medications Medications (Trade) Dose Ordered Sig/Wanda Route PRN Reason Start Time Stop Time Status Last Admin Dose Admin Acetaminophen (Tylenol) 650 mg Q4H PRN ORAL FEVER 12/28/17 22:00 01/27/18 21:59 Dextrose (Dextrose 50%) 25 ml STAT PRN IV hypoglycemia 01/01/18 14:30 01/31/18 14:29 Dextrose (Dextrose 50%) 50 ml STAT PRN IV Hypoglycemia 01/01/18 14:30 01/27/18 21:59 Levothyroxine Sodium (Synthroid) 50 mcg DAILY@0630 GT 12/30/17 06:30 01/29/18 06:29 01/03/18 06:33 Lorazepam (Ativan 2mg/ml 1ml) 2 mg Q2H PRN IV For Anxiety 12/28/17 22:00 01/04/18 21:59 Morphine Sulfate (Morphine Sulfate) 4 mg Q4H PRN IVP Severe Pain (Pain Scale 7-10) 12/28/17 22:00 01/04/18 21:59 12/30/17 05:42 Ondansetron HCl (Zofran) 4 mg Q6H PRN IVP Nausea & Vomiting 12/28/17 22:00 01/27/18 21:59 Piperacillin Sod/ Tazobactam Sod 3.375 gm/Dextrose 110 ml @ 27.5 mls/hr EVERY 8 HOURS IVPB 12/31/17 14:00 01/05/18 13:59 01/03/18 06:33 Polyethylene Glycol (Miralax) 17 gm DAILYPRN PRN ORAL Constipation 12/28/17 22:00 01/27/18 21:59 Sucralfate (Carafate) 1 gm FOUR TIMES A DAY GT 12/29/17 09:00 01/28/18 08:59 01/03/18 10:10 Huma Keating MD Jan 03, 2018 11:14
[2018-01-03 12:00] VITALS: BP 113/66
--- NOTE | 2018-01-03 12:59 | Infectious Diseases Prog Note ---
Assessment/Plan Assessment/Plan ASSESSMENT: The patient is a 67-year-old male with, -. Leukocytosis, recurrent, improving- suspect 2ry to UTI -repeat u/a 01/01 WBC >100K. nit neg, leuk +3; ucx >100k P stuarti (S Ceftriaxone, Cefepime; R Genta, levo/cirp, bactrim) -CXR 12/31: Right basilar atelectasis. No acute process otherwise -Bcx NTD -CXR: Mild bilateral interstitial edema versus infiltrates. ; sp cx MDR ABC (S Polymixin B, Colistin, Minocyclne) and MDR PsA (S Gentamicin, I Cefepime ) , GGS (colonizers) - Afebrile. - Pyuria/bacteriuria- likely UTI -u/a WBC 5-10, nit +, leuk +3; ucx>100K P, stuarti (S Ceftriaxone) -History of upper GI bleed. - History of chronic anemia status post PEG and bedbound. - Chronic respiratory failure. -. Status post trach and PEG. -. Functional quadriplegia. -. Encephalopathy. -. CAD. -. CHF. -. Hypothyroidism. -. Diabetes. -. Bipolar disorder/schizophrenia. -VRE, MRSA colonized PLAN: -. Switch Zosyn #4/7-10 to IV Cefetriaxone for Providencia stuarti UTI; upon discharge can be transition to PO Cefdinir -will not treat MDR ABC and MDR PsA in sputum as they are colonizers -. Monitor CBC/BMP, temperatures. -. Monitor cultures (blood,urine). -Cdiff if diarrhea -. Management of anemia as per rest of the team. -. We will monitor the patient's clinical course and laboratories and based on those, we will do further recommendations. Subjective Allergies: Coded Allergies: NO KNOWN DRUG ALLERGIES (Verified Allergy, Unknown, 09/11/16) Subjective afebrile fluctuating leukocytosis today at 17 and repeat 2 hrs laters down to 15; yesterday was normal stable VSS and O2 requiremetns BCx NTD Objective Vital Signs Last 24 Hour Vital Signs Date Time Temp Pulse Resp B/P (MAP) Pulse Ox O2 Delivery O2 Flow Rate FiO2 01/03/18 12:00 97.3 71 16 113/66 99 Mechanical Ventilator 40 97.3 01/03/18 12:00 67 01/03/18 12:00 40 01/03/18 11:03 73 16 40 01/03/18 09:08 64 16 40 01/03/18 08:00 97.3 74 16 121/58 100 Mechanical Ventilator 40 97.3 01/03/18 08:00 40 01/03/18 08:00 73 01/03/18 06:40 67 16 40 01/03/18 05:00 78 19 40 01/03/18 04:00 40 01/03/18 04:00 98.0 78 16 125/73 100 Mechanical Ventilator 40 98.0 01/03/18 04:00 84 01/03/18 02:46 86 16 40 01/03/18 01:23 84 16 40 01/03/18 00:00 78 01/03/18 00:00 40 01/03/18 00:00 98.5 88 18 138/68 96 Mechanical Ventilator 40 98.5 01/02/18 22:48 88 17 40 01/02/18 21:40 86 16 40 01/02/18 20:00 98.5 77 17 119/69 100 Mechanical Ventilator 40 98.5 01/02/18 20:00 75 01/02/18 20:00 40 01/02/18 19:30 83 18 40 01/02/18 16:53 89 20 40 01/02/18 16:00 78 01/02/18 16:00 40 01/02/18 16:00 98.8 83 16 134/69 100 Mechanical Ventilator 40 98.8 01/02/18 14:59 80 16 40 01/02/18 13:13 80 22 40 Height (Feet): 5 Height (Inches): 6.00 Weight (Pounds): 137 Objective HEENT: Mild pale conjunctivae. No icterus. NECK: No lymphadenopathy. CHEST: Coarse breathing sounds. HEART: S1 and S2. ABDOMEN: Soft. EXTREMITIES: No cyanosis. NEUROLOGIC: Awake and nonverbal. Microbiology Date/Time Source Procedure Growth Status 01/01/18 12:30 Blood Blood Culture - Preliminary NO GROWTH AFTER 24 HOURS Resulted 01/01/18 12:25 Blood Blood Culture - Preliminary NO GROWTH AFTER 24 HOURS Resulted 01/01/18 09:30 Urine,Clean Catch Urine Culture - Final Providencia Stuartii Complete Laboratory Tests Test 01/03/18 06:00 01/03/18 08:00 White Blood Count 17.3 K/UL (4.8-10.8) #H 15.8 K/UL (4.8-10.8) H Red Blood Count 3.38 M/UL (4.70-6.10) L 3.53 M/UL (4.70-6.10) L Hemoglobin 9.2 G/DL (14.2-18.0) L 9.4 G/DL (14.2-18.0) L Hematocrit 27.4 % (42.0-52.0) L 28.6 % (42.0-52.0) L Mean Corpuscular Volume 81 FL (80-99) 81 FL (80-99) Mean Corpuscular Hemoglobin 27.2 PG (27.0-31.0) 26.5 PG (27.0-31.0) L Mean Corpuscular Hemoglobin Concent 33.5 G/DL (32.0-36.0) 32.7 G/DL (32.0-36.0) Red Cell Distribution Width 13.8 % (11.6-14.8) 13.8 % (11.6-14.8) Platelet Count 360 K/UL (150-450) 390 K/UL (150-450) Mean Platelet Volume 7.5 FL (6.5-10.1) 6.6 FL (6.5-10.1) Neutrophils (%) (Auto) 82.8 % (45.0-75.0) H 77.8 % (45.0-75.0) H Lymphocytes (%) (Auto) 7.5 % (20.0-45.0) L 11.0 % (20.0-45.0) L Monocytes (%) (Auto) 6.1 % (1.0-10.0) 6.5 % (1.0-10.0) Eosinophils (%) (Auto) 3.2 % (0.0-3.0) H 4.3 % (0.0-3.0) H Basophils (%) (Auto) 0.4 % (0.0-2.0) 0.4 % (0.0-2.0) Sodium Level 134 MMOL/L (136-145) L Potassium Level 3.9 MMOL/L (3.5-5.1) Chloride Level 100 MMOL/L (98-107) Carbon Dioxide Level 23 MMOL/L (21-32) Anion Gap 11 mmol/L (5-15) Blood Urea Nitrogen 18 mg/dL (7-18) Creatinine 1.2 MG/DL (0.55-1.30) Estimat Glomerular Filtration Rate > 60 mL/min (>60) Glucose Level 130 MG/DL (74-106) H Calcium Level 8.8 MG/DL (8.5-10.1) Phosphorus Level 3.0 MG/DL (2.5-4.9) Magnesium Level 2.0 MG/DL (1.8-2.4) Iron Level 35 ug/dL (50-175) L Total Iron Binding Capacity 205 ug/dL (250-450) L Percent Iron Saturation 17 % (15-50) Unsaturated Iron Binding 170 ug/dL (112-346) Ferritin 86 NG/ML (8-388) Total Bilirubin 0.5 MG/DL (0.2-1.0) Aspartate Amino Transf (AST/SGOT) 12 U/L (15-37) L Alanine Aminotransferase (ALT/SGPT) 22 U/L (12-78) Alkaline Phosphatase 113 U/L (46-116) Total Protein 7.7 G/DL (6.4-8.2) Albumin 2.5 G/DL (3.4-5.0) L Globulin 5.2 g/dL Albumin/Globulin Ratio 0.5 (1.0-2.7) L Current Medications Medications (Trade) Dose Ordered Sig/Wanda Route PRN Reason Start Time Stop Time Status Last Admin Dose Admin Acetaminophen (Tylenol) 650 mg Q4H PRN ORAL FEVER 12/28/17 22:00 01/27/18 21:59 Dextrose (Dextrose 50%) 25 ml STAT PRN IV hypoglycemia 01/01/18 14:30 01/31/18 14:29 Dextrose (Dextrose 50%) 50 ml STAT PRN IV Hypoglycemia 01/01/18 14:30 01/27/18 21:59 Levothyroxine Sodium (Synthroid) 50 mcg DAILY@0630 GT 12/30/17 06:30 01/29/18 06:29 01/03/18 06:33 Lorazepam (Ativan 2mg/ml 1ml) 2 mg Q2H PRN IV For Anxiety 12/28/17 22:00 01/04/18 21:59 Morphine Sulfate (Morphine Sulfate) 4 mg Q4H PRN IVP Severe Pain (Pain Scale 7-10) 12/28/17 22:00 01/04/18 21:59 12/30/17 05:42 Ondansetron HCl (Zofran) 4 mg Q6H PRN IVP Nausea & Vomiting 12/28/17 22:00 01/27/18 21:59 Piperacillin Sod/ Tazobactam Sod 3.375 gm/Dextrose 110 ml @ 27.5 mls/hr EVERY 8 HOURS IVPB 12/31/17 14:00 01/05/18 13:59 01/03/18 06:33 Polyethylene Glycol (Miralax) 17 gm DAILYPRN PRN ORAL Constipation 12/28/17 22:00 01/27/18 21:59 Sucralfate (Carafate) 1 gm FOUR TIMES A DAY GT 12/29/17 09:00 01/28/18 08:59 01/03/18 10:10 Lisy Lai M.D. Jan 03, 2018 12:59
[2018-01-03] MEDS: cefTRIAXone 1 GM in D5W 55 ML IVPB SCH (15:44)
[2018-01-03 16:00] VITALS: BP 117/68
--- NOTE | 2018-01-03 17:18 | GI Progress Note ---
Assessment/Plan Problems: (1) Dysphagia ICD Codes: R13.10 - Dysphagia, unspecified SNOMED: 40137371, 460352410 (2) Fecal impaction in rectum ICD Codes: K56.41 - Fecal impaction SNOMED: 42334262 (3) Anemia ICD Codes: D64.9 - Anemia, unspecified SNOMED: 702281971 (4) Iron deficiency ICD Codes: E61.1 - Iron deficiency SNOMED: 66485500 (5) Esophagitis ICD Codes: K20.9 - Esophagitis SNOMED: 89515583 (6) Protein-calorie malnutrition, severe ICD Codes: E43 - Unspecified severe protein-calorie malnutrition SNOMED: 428048937 (7) Feeding by G-tube ICD Codes: Z93.1 - Gastrostomy status SNOMED: 845342100, 373793570 Status: unchanged Status Narrative Discussed with Dr. Wilson. Assessment/Plan anemia work up monitor H&H, prn transfusions >> 1 unit today bowel regime ppi BID + carafate GTFs fu labs conservator will not sign consent for endoscopy unless life threatening. Subjective Subjective limited Objective Last 24 Hour Vital Signs Date Time Temp Pulse Resp B/P (MAP) Pulse Ox O2 Delivery O2 Flow Rate FiO2 01/03/18 16:49 71 17 40 01/03/18 14:35 78 19 40 01/03/18 13:26 65 16 40 01/03/18 12:00 97.3 71 16 113/66 99 Mechanical Ventilator 40 97.3 01/03/18 12:00 67 01/03/18 12:00 40 01/03/18 11:03 73 16 40 01/03/18 09:08 64 16 40 01/03/18 08:00 97.3 74 16 121/58 100 Mechanical Ventilator 40 97.3 01/03/18 08:00 40 01/03/18 08:00 73 01/03/18 06:40 67 16 40 01/03/18 05:00 78 19 40 01/03/18 04:00 40 01/03/18 04:00 98.0 78 16 125/73 100 Mechanical Ventilator 40 98.0 01/03/18 04:00 84 01/03/18 02:46 86 16 40 01/03/18 01:23 84 16 40 01/03/18 00:00 78 01/03/18 00:00 40 4/26/18 00:00 98.5 88 18 138/68 96 Mechanical Ventilator 40 98.5 01/02/18 22:48 88 17 40 01/02/18 21:40 86 16 40 01/02/18 20:00 98.5 77 17 119/69 100 Mechanical Ventilator 40 98.5 01/02/18 20:00 75 01/02/18 20:00 40 01/02/18 19:30 83 18 40 Intake and Output 01/02/18 01/03/18 19:00 07:00 Intake Total 782.5 ml 685.0 ml Output Total 175 ml Balance 607.5 ml 685.0 ml Intake Free Water 0 ml IV Total 192.5 ml 110.0 ml Tube Feeding 550 ml 495 ml Other 40 ml 80 ml Output Urine Total 175 ml # Voids 1 Laboratory Tests Test 01/03/18 06:00 01/03/18 08:00 White Blood Count 17.3 K/UL (4.8-10.8) #H 15.8 K/UL (4.8-10.8) H Red Blood Count 3.38 M/UL (4.70-6.10) L 3.53 M/UL (4.70-6.10) L Hemoglobin 9.2 G/DL (14.2-18.0) L 9.4 G/DL (14.2-18.0) L Hematocrit 27.4 % (42.0-52.0) L 28.6 % (42.0-52.0) L Mean Corpuscular Volume 81 FL (80-99) 81 FL (80-99) Mean Corpuscular Hemoglobin 27.2 PG (27.0-31.0) 26.5 PG (27.0-31.0) L Mean Corpuscular Hemoglobin Concent 33.5 G/DL (32.0-36.0) 32.7 G/DL (32.0-36.0) Red Cell Distribution Width 13.8 % (11.6-14.8) 13.8 % (11.6-14.8) Platelet Count 360 K/UL (150-450) 390 K/UL (150-450) Mean Platelet Volume 7.5 FL (6.5-10.1) 6.6 FL (6.5-10.1) Neutrophils (%) (Auto) 82.8 % (45.0-75.0) H 77.8 % (45.0-75.0) H Lymphocytes (%) (Auto) 7.5 % (20.0-45.0) L 11.0 % (20.0-45.0) L Monocytes (%) (Auto) 6.1 % (1.0-10.0) 6.5 % (1.0-10.0) Eosinophils (%) (Auto) 3.2 % (0.0-3.0) H 4.3 % (0.0-3.0) H Basophils (%) (Auto) 0.4 % (0.0-2.0) 0.4 % (0.0-2.0) Sodium Level 134 MMOL/L (136-145) L Potassium Level 3.9 MMOL/L (3.5-5.1) Chloride Level 100 MMOL/L (98-107) Carbon Dioxide Level 23 MMOL/L (21-32) Anion Gap 11 mmol/L (5-15) Blood Urea Nitrogen 18 mg/dL (7-18) Creatinine 1.2 MG/DL (0.55-1.30) Estimat Glomerular Filtration Rate > 60 mL/min (>60) Glucose Level 130 MG/DL (74-106) H Calcium Level 8.8 MG/DL (8.5-10.1) Phosphorus Level 3.0 MG/DL (2.5-4.9) Magnesium Level 2.0 MG/DL (1.8-2.4) Iron Level 35 ug/dL (50-175) L Total Iron Binding Capacity 205 ug/dL (250-450) L Percent Iron Saturation 17 % (15-50) Unsaturated Iron Binding 170 ug/dL (112-346) Ferritin 86 NG/ML (8-388) Total Bilirubin 0.5 MG/DL (0.2-1.0) Aspartate Amino Transf (AST/SGOT) 12 U/L (15-37) L Alanine Aminotransferase (ALT/SGPT) 22 U/L (12-78) Alkaline Phosphatase 113 U/L (46-116) Total Protein 7.7 G/DL (6.4-8.2) Albumin 2.5 G/DL (3.4-5.0) L Globulin 5.2 g/dL Albumin/Globulin Ratio 0.5 (1.0-2.7) L Height (Feet): 5 Height (Inches): 6.00 Weight (Pounds): 137 General Appearance: no apparent distress Cardiovascular: normal rate Respiratory/Chest: no respiratory distress Abdominal Exam: soft, GT site - c/d/i Arabella Quesada N.P. Jan 03, 2018 17:18
[2018-01-03 20:00] VITALS: BP 124/99
[2018-01-04] VITALS: BP 137/77
[2018-01-04] MEDS: Miralax 17gm pkt ORAL PRN ×2 (03:45→20:22)
[2018-01-04 04:00] VITALS: BP 145/71
[2018-01-04 06:00] LABS: BASOPHILS % (AUTO) 0.5 % (0.0-2.0); EOSINOPHILS % (AUTO) 5.9 % (0.0-3.0); HEMATOCRIT 28.8 % (42.0-52.0); HEMOGLOBIN 9.6 G/DL (14.2-18.0); LYMPHOCYTES % (AUTO) 18.1 % (20.0-45.0); MEAN CORPUSCULAR VOLUME 82 FL (80-99); NEUTROPHILS % (AUTO) 66.4 % (45.0-75.0); PLATELET COUNT 385 K/UL (150-450); RED BLOOD COUNT 3.51 M/UL (4.70-6.10); RED CELL DISTRIBUTION WIDTH 13.7 % (11.6-14.8)
[2018-01-04 06:15] LABS: ALANINE AMINOTRANSFERASE 20 U/L (12-78); ALBUMIN 2.6 G/DL (3.4-5.0); ALBUMIN/GLOBULIN RATIO 0.5 (1.0-2.7); ALKALINE PHOSPHATASE 114 U/L (46-116); ANION GAP 11 mmol/L (5-15); ASPARTATE AMINO TRANSFERASE 51 U/L (15-37); BILIRUBIN,TOTAL 0.3 MG/DL (0.2-1.0); BLOOD UREA NITROGEN 20 mg/dL (7-18); CARBON DIOXIDE 22 MMOL/L (21-32); CHLORIDE 101 MMOL/L (98-107); CREATININE 0.8 MG/DL (0.55-1.30); POTASSIUM 5.5 MMOL/L (3.5-5.1); SODIUM 134 MMOL/L (136-145)
[2018-01-04 08:00] VITALS: BP 135/91
[2018-01-04] MEDS: Sucralfate 1gm tab GT SCH ×4 (09:53→20:22)
[2018-01-04] MEDS ORDERED: Tubing Blood Filter IV ONE (10:55)
[2018-01-04] MEDS ORDERED: NS 275ml ONE (10:55)
[2018-01-04] MEDS ORDERED: Tubing IV Secondary IV ONE (10:55)
--- NOTE | 2018-01-04 10:56 | Pulmonology Progress Note ---
Assessment/Plan Problems: (1) Sepsis (2) Respiratory failure (3) Prerenal azotemia (4) [facility] resident (5) Psychosis (6) Debility (7) Alzheimer's dementia Respiratory: monitor respiratory rate, adjust FIO2, CXR Cardiac: continue to monitor HR/BP Renal: F/U I&O, check electrolytes Infectious Disease: check cultures Gastrointestinal: continue feedings/current rate Endocrine: monitor blood sugar Hematologic: monitor H/H, transfuse if hgb<8.5 Neurologic: PRN Ativan, PRN Morphine, keep patient comfortable Prophylaxis: Protonix Notes Reviewed: cardio, 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 with: nurses, consultants, community case manager Subjective ROS Limited/Unobtainable: No Constitutional: Reports: no symptoms HEENT: Repors: no symptoms Respiratory: Reports: no symptoms Allergies: Coded Allergies: NO KNOWN DRUG ALLERGIES (Verified Allergy, Unknown, 09/11/16) Objective Last 24 Hour Vital Signs Date Time Temp Pulse Resp B/P (MAP) Pulse Ox O2 Delivery O2 Flow Rate FiO2 01/04/18 08:43 72 16 50 01/04/18 08:00 97.5 71 16 135/91 100 Mechanical Ventilator 40 97.5 01/04/18 08:00 63 01/04/18 08:00 40 01/04/18 06:42 75 18 50 01/04/18 05:18 61 17 50 01/04/18 04:00 97.3 73 19 145/71 100 Mechanical Ventilator 40 97.3 01/04/18 04:00 40 01/04/18 04:00 62 01/04/18 03:30 75 22 50 01/04/18 01:30 86 17 50 01/04/18 00:00 68 01/04/18 00:00 98.1 69 16 137/77 100 Mechanical Ventilator 40 98.1 01/03/18 23:08 74 17 50 01/03/18 21:18 83 18 50 01/03/18 20:00 72 01/03/18 20:00 40 01/03/18 20:00 98.2 74 16 124/99 100 Mechanical Ventilator 40 98.2 01/03/18 19:30 74 16 40 01/03/18 16:49 71 17 40 01/03/18 16:00 98.2 64 16 117/68 100 Mechanical Ventilator 40 98.2 01/03/18 16:00 64 01/03/18 16:00 40 01/03/18 14:35 78 19 40 01/03/18 13:26 65 16 40 01/03/18 12:00 97.3 71 16 113/66 99 Mechanical Ventilator 40 97.3 01/03/18 12:00 67 01/03/18 12:00 40 01/03/18 11:03 73 16 40 Intake and Output 01/03/18 01/04/18 19:00 07:00 Intake Total 765.0 ml 645 ml Output Total 1100 ml 475 ml Balance -335.0 ml 170 ml Intake Free Water 20 ml 65 ml IV Total 165.0 ml Tube Feeding 550 ml 495 ml Other 30 ml 85 ml Output Urine Total 1100 ml 475 ml General Appearance: WD/WN HEENT: normocephalic, atraumatic Respiratory/Chest: chest wall non-tender, lungs clear Cardiovascular: normal peripheral pulses Abdomen: normal bowel sounds, soft, non tender Genitourinary: normal external genitalia Extremities: no cyanosis Neurologic/Psychiatric: asset availability leader II-XII grossly normal Lymphatic: no neck adenopathy Microbiology Date/Time Source Procedure Growth Status 01/01/18 12:30 Blood Blood Culture - Preliminary NO GROWTH AFTER 48 HOURS Resulted 01/01/18 12:25 Blood Blood Culture - Preliminary NO GROWTH AFTER 48 HOURS Resulted Laboratory Tests 01/04/18 04:35: White Blood Count 10.0, Red Blood Count 3.51L, Hemoglobin 9.6L, Hematocrit 28.8L , Mean Corpuscular Volume 82, Mean Corpuscular Hemoglobin 27.2, Mean Corpuscular Hemoglobin Concent 33.1, Red Cell Distribution Width 13.7, Platelet Count 385, Mean Platelet Volume 7.2, Neutrophils (%) (Auto) 66.4, Lymphocytes (% ) (Auto) 18.1L, Monocytes (%) (Auto) 9.0, Eosinophils (%) (Auto) 5.9H, Basophils (%) (Auto) 0.5, Sodium Level 134L, Potassium Level 5.5H, Chloride Level 101, Carbon Dioxide Level 22, Anion Gap 11, Blood Urea Nitrogen 20H, Creatinine 0.8, Estimat Glomerular Filtration Rate > 60, Glucose Level 97, Calcium Level 9.0, Phosphorus Level 3.0, Magnesium Level 2.2, Total Bilirubin 0.3, Aspartate Amino Transf (AST/SGOT) 51H, Alanine Aminotransferase (ALT/SGPT) 20, Alkaline Phosphatase 114, Total Protein 7.7, Albumin 2.6L, Globulin 5.1, Albumin/Globulin Ratio 0.5L Current Medications Medications (Trade) Dose Ordered Sig/Wanda Route PRN Reason Start Time Stop Time Status Last Admin Dose Admin Acetaminophen (Tylenol) 650 mg Q4H PRN ORAL FEVER 12/28/17 22:00 01/27/18 21:59 Ceftriaxone Sodium 1 gm/ Dextrose 55 ml @ 110 mls/hr Q24H IVPB 01/03/18 14:30 01/10/18 14:29 01/03/18 15:44 Dextrose (Dextrose 50%) 25 ml STAT PRN IV hypoglycemia 01/01/18 14:30 01/31/18 14:29 Dextrose (Dextrose 50%) 50 ml STAT PRN IV Hypoglycemia 01/01/18 14:30 01/27/18 21:59 Levothyroxine Sodium (Synthroid) 50 mcg DAILY@0630 GT 12/30/17 06:30 01/29/18 06:29 01/04/18 06:29 Lorazepam (Ativan 2mg/ml 1ml) 2 mg Q2H PRN IV For Anxiety 12/28/17 22:00 01/04/18 21:59 Morphine Sulfate (Morphine Sulfate) 4 mg Q4H PRN IVP Severe Pain (Pain Scale 7-10) 12/28/17 22:00 01/04/18 21:59 12/30/17 05:42 Ondansetron HCl (Zofran) 4 mg Q6H PRN IVP Nausea & Vomiting 12/28/17 22:00 01/27/18 21:59 Polyethylene Glycol (Miralax) 17 gm DAILYPRN PRN ORAL Constipation 12/28/17 22:00 01/27/18 21:59 01/04/18 03:45 Sucralfate (Carafate) 1 gm FOUR TIMES A DAY GT 12/29/17 09:00 01/28/18 08:59 01/04/18 09:53 Huma Keating MD Jan 04, 2018 10:56
[2018-01-04 12:00] VITALS: BP 151/81
--- NOTE | 2018-01-04 13:07 | GI Progress Note ---
Assessment/Plan Problems: (1) Dysphagia ICD Codes: R13.10 - Dysphagia, unspecified SNOMED: 02013450, 167589487 (2) Fecal impaction in rectum ICD Codes: K56.41 - Fecal impaction SNOMED: 20071709 (3) Anemia ICD Codes: D64.9 - Anemia, unspecified SNOMED: 637645456 (4) Iron deficiency ICD Codes: E61.1 - Iron deficiency SNOMED: 06012231 (5) Esophagitis ICD Codes: K20.9 - Esophagitis SNOMED: 32401457 (6) Protein-calorie malnutrition, severe ICD Codes: E43 - Unspecified severe protein-calorie malnutrition SNOMED: 308725582 (7) Feeding by G-tube ICD Codes: Z93.1 - Gastrostomy status SNOMED: 113647950, 596196508 Status: unchanged Status Narrative Discussed with Dr. Wilson. Assessment/Plan monitor H&H, prn transfusions bowel regime ppi BID + carafate GTFs fu labs conservator will not sign consent for endoscopy unless life threatening. Subjective Subjective limited Objective Last 24 Hour Vital Signs Date Time Temp Pulse Resp B/P (MAP) Pulse Ox O2 Delivery O2 Flow Rate FiO2 01/04/18 11:15 70 16 50 01/04/18 08:43 72 16 50 01/04/18 08:00 97.5 71 16 135/91 100 Mechanical Ventilator 40 97.5 01/04/18 08:00 63 01/04/18 08:00 40 01/04/18 06:42 75 18 50 01/04/18 05:18 61 17 50 01/04/18 04:00 97.3 73 19 145/71 100 Mechanical Ventilator 40 97.3 01/04/18 04:00 40 01/04/18 04:00 62 01/04/18 03:30 75 22 50 01/04/18 01:30 86 17 50 01/04/18 00:00 68 01/04/18 00:00 98.1 69 16 137/77 100 Mechanical Ventilator 40 98.1 01/03/18 23:08 74 17 50 01/03/18 21:18 83 18 50 01/03/18 20:00 72 01/03/18 20:00 40 01/03/18 20:00 98.2 74 16 124/99 100 Mechanical Ventilator 40 98.2 01/03/18 19:30 74 16 40 01/03/18 16:49 71 17 40 01/03/18 16:00 98.2 64 16 117/68 100 Mechanical Ventilator 40 98.2 01/03/18 16:00 64 01/03/18 16:00 40 01/03/18 14:35 78 19 40 01/03/18 13:26 65 16 40 Intake and Output 01/03/18 01/04/18 19:00 07:00 Intake Total 765.0 ml 645 ml Output Total 1100 ml 475 ml Balance -335.0 ml 170 ml Intake Free Water 20 ml 65 ml IV Total 165.0 ml Tube Feeding 550 ml 495 ml Other 30 ml 85 ml Output Urine Total 1100 ml 475 ml Laboratory Tests Test 01/04/18 04:35 01/04/18 12:40 White Blood Count 10.0 K/UL (4.8-10.8) Pending Red Blood Count 3.51 M/UL (4.70-6.10) L Pending Hemoglobin 9.6 G/DL (14.2-18.0) L Pending Hematocrit 28.8 % (42.0-52.0) L Pending Mean Corpuscular Volume 82 FL (80-99) Pending Mean Corpuscular Hemoglobin 27.2 PG (27.0-31.0) Pending Mean Corpuscular Hemoglobin Concent 33.1 G/DL (32.0-36.0) Pending Red Cell Distribution Width 13.7 % (11.6-14.8) Pending Platelet Count 385 K/UL (150-450) Pending Mean Platelet Volume 7.2 FL (6.5-10.1) Pending Neutrophils (%) (Auto) 66.4 % (45.0-75.0) Pending Lymphocytes (%) (Auto) 18.1 % (20.0-45.0) L Pending Monocytes (%) (Auto) 9.0 % (1.0-10.0) Pending Eosinophils (%) (Auto) 5.9 % (0.0-3.0) H Pending Basophils (%) (Auto) 0.5 % (0.0-2.0) Pending Sodium Level 134 MMOL/L (136-145) L Pending Potassium Level 5.5 MMOL/L (3.5-5.1) H Pending Chloride Level 101 MMOL/L (98-107) Pending Carbon Dioxide Level 22 MMOL/L (21-32) Pending Anion Gap 11 mmol/L (5-15) Blood Urea Nitrogen 20 mg/dL (7-18) H Pending Creatinine 0.8 MG/DL (0.55-1.30) Pending Estimat Glomerular Filtration Rate > 60 mL/min (>60) Pending Glucose Level 97 MG/DL (74-106) Pending Calcium Level 9.0 MG/DL (8.5-10.1) Pending Phosphorus Level 3.0 MG/DL (2.5-4.9) Magnesium Level 2.2 MG/DL (1.8-2.4) Total Bilirubin 0.3 MG/DL (0.2-1.0) Pending Aspartate Amino Transf (AST/SGOT) 51 U/L (15-37) H Pending Alanine Aminotransferase (ALT/SGPT) 20 U/L (12-78) Pending Alkaline Phosphatase 114 U/L (46-116) Pending Total Protein 7.7 G/DL (6.4-8.2) Pending Albumin 2.6 G/DL (3.4-5.0) L Pending Globulin 5.1 g/dL Pending Albumin/Globulin Ratio 0.5 (1.0-2.7) L Height (Feet): 5 Height (Inches): 6.00 Weight (Pounds): 139 General Appearance: WD/WN, no apparent distress, alert Cardiovascular: normal rate Respiratory/Chest: normal breath sounds, no respiratory distress Abdominal Exam: normal bowel sounds, non tender, soft, GT site - c/d/i Extremities: non-tender Arabella Quesada N.P. Jan 04, 2018 13:07
[2018-01-04 13:19] LABS: ANION GAP 11 mmol/L (5-15); BLOOD UREA NITROGEN 19 mg/dL (7-18); CALCIUM 9.9 MG/DL (8.5-10.1); CARBON DIOXIDE 24 MMOL/L (21-32); CHLORIDE 101 MMOL/L (98-107); CREATININE 1.1 MG/DL (0.55-1.30); POTASSIUM 5.5 MMOL/L (3.5-5.1); SODIUM 136 MMOL/L (136-145)
[2018-01-04 13:23] LABS: BASOPHILS % (AUTO) 0.6 % (0.0-2.0); EOSINOPHILS % (AUTO) 5.6 % (0.0-3.0); HEMATOCRIT 32.9 % (42.0-52.0); HEMOGLOBIN 10.6 G/DL (14.2-18.0); LYMPHOCYTES % (AUTO) 21.5 % (20.0-45.0); MEAN CORPUSCULAR VOLUME 82 FL (80-99); NEUTROPHILS % (AUTO) 63.3 % (45.0-75.0); PLATELET COUNT 410 K/UL (150-450); RED BLOOD COUNT 4.02 M/UL (4.70-6.10); RED CELL DISTRIBUTION WIDTH 13.8 % (11.6-14.8); WHITE BLOOD COUNT 11.1 K/UL (4.8-10.8)
[2018-01-04 13:24] LABS: ALANINE AMINOTRANSFERASE 18 U/L (12-78); ALBUMIN 2.8 G/DL (3.4-5.0); ALBUMIN/GLOBULIN RATIO 0.5 (1.0-2.7); ALKALINE PHOSPHATASE 121 U/L (46-116); ASPARTATE AMINO TRANSFERASE 14 U/L (15-37); BILIRUBIN,TOTAL 0.3 MG/DL (0.2-1.0)
[2018-01-04] MEDS: cefTRIAXone 1 GM in D5W 55 ML IVPB SCH (13:45)
[2018-01-04 16:00] VITALS: BP 151/75
--- NOTE | 2018-01-04 16:23 | Infectious Diseases Prog Note ---
Assessment/Plan Assessment/Plan ASSESSMENT: The patient is a 67-year-old male with, -. Leukocytosis, recurrent, improving- suspect 2ry to UTI -repeat u/a 01/01 WBC >100K. nit neg, leuk +3; ucx >100k P stuarti (S Ceftriaxone, Cefepime; R Genta, levo/cirp, bactrim) -CXR 12/31: Right basilar atelectasis. No acute process otherwise -Bcx NTD -CXR: Mild bilateral interstitial edema versus infiltrates. ; sp cx MDR ABC (S Polymixin B, Colistin, Minocyclne) and MDR PsA (S Gentamicin, I Cefepime ) , GGS (colonizers) - Afebrile. - Pyuria/bacteriuria- likely UTI -u/a WBC 5-10, nit +, leuk +3; ucx>100K P, stuarti (S Ceftriaxone) -History of upper GI bleed. - History of chronic anemia status post PEG and bedbound. - Chronic respiratory failure. -. Status post trach and PEG. -. Functional quadriplegia. -. Encephalopathy. -. CAD. -. CHF. -. Hypothyroidism. -. Diabetes. -. Bipolar disorder/schizophrenia. -VRE, MRSA colonized PLAN: -Continue IV Ceftriaxone abx d#5/7-10 for Providencia stuarti UTI; upon discharge can be transition to PO Cefdinir -will not treat MDR ABC and MDR PsA in sputum as they are colonizers -01/03 SP Zosyn #4 -. Monitor CBC/BMP, temperatures. -. Monitor cultures (blood,urine). -Cdiff if diarrhea -. Management of anemia as per rest of the team. -. We will monitor the patient's clinical course and laboratories and based on those, we will do further recommendations. Subjective Allergies: Coded Allergies: NO KNOWN DRUG ALLERGIES (Verified Allergy, Unknown, 09/11/16) Subjective afebrile mild leukocytosis bcx NTD Objective Vital Signs Last 24 Hour Vital Signs Date Time Temp Pulse Resp B/P (MAP) Pulse Ox O2 Delivery O2 Flow Rate FiO2 01/04/18 14:33 95 19 50 01/04/18 12:30 76 17 50 01/04/18 12:00 68 01/04/18 12:00 40 01/04/18 12:00 97.7 75 16 151/81 100 Mechanical Ventilator 40 97.7 01/04/18 11:15 70 16 50 01/04/18 08:43 72 16 50 01/04/18 08:00 97.5 71 16 135/91 100 Mechanical Ventilator 40 97.5 01/04/18 08:00 63 01/04/18 08:00 40 01/04/18 06:42 75 18 50 01/04/18 05:18 61 17 50 01/04/18 04:00 97.3 73 19 145/71 100 Mechanical Ventilator 40 97.3 01/04/18 04:00 40 01/04/18 04:00 62 01/04/18 03:30 75 22 50 01/04/18 01:30 86 17 50 01/04/18 00:00 68 01/04/18 00:00 98.1 69 16 137/77 100 Mechanical Ventilator 40 98.1 01/03/18 23:08 74 17 50 01/03/18 21:18 83 18 50 01/03/18 20:00 72 01/03/18 20:00 40 01/03/18 20:00 98.2 74 16 124/99 100 Mechanical Ventilator 40 98.2 01/03/18 19:30 74 16 40 01/03/18 16:49 71 17 40 Height (Feet): 5 Height (Inches): 6.00 Weight (Pounds): 139 Objective HEENT: Mild pale conjunctivae. No icterus. NECK: No lymphadenopathy. CHEST: Coarse breathing sounds. HEART: S1 and S2. ABDOMEN: Soft. EXTREMITIES: No cyanosis. NEUROLOGIC: Awake and nonverbal. Laboratory Tests Test 01/04/18 04:35 01/04/18 12:40 White Blood Count 10.0 K/UL (4.8-10.8) 11.1 K/UL (4.8-10.8) H Red Blood Count 3.51 M/UL (4.70-6.10) L 4.02 M/UL (4.70-6.10) L Hemoglobin 9.6 G/DL (14.2-18.0) L 10.6 G/DL (14.2-18.0) L Hematocrit 28.8 % (42.0-52.0) L 32.9 % (42.0-52.0) L Mean Corpuscular Volume 82 FL (80-99) 82 FL (80-99) Mean Corpuscular Hemoglobin 27.2 PG (27.0-31.0) 26.2 PG (27.0-31.0) L Mean Corpuscular Hemoglobin Concent 33.1 G/DL (32.0-36.0) 32.1 G/DL (32.0-36.0) Red Cell Distribution Width 13.7 % (11.6-14.8) 13.8 % (11.6-14.8) Platelet Count 385 K/UL (150-450) 410 K/UL (150-450) Mean Platelet Volume 7.2 FL (6.5-10.1) 7.0 FL (6.5-10.1) Neutrophils (%) (Auto) 66.4 % (45.0-75.0) 63.3 % (45.0-75.0) Lymphocytes (%) (Auto) 18.1 % (20.0-45.0) L 21.5 % (20.0-45.0) Monocytes (%) (Auto) 9.0 % (1.0-10.0) 9.0 % (1.0-10.0) Eosinophils (%) (Auto) 5.9 % (0.0-3.0) H 5.6 % (0.0-3.0) H Basophils (%) (Auto) 0.5 % (0.0-2.0) 0.6 % (0.0-2.0) Sodium Level 134 MMOL/L (136-145) L 136 MMOL/L (136-145) Potassium Level 5.5 MMOL/L (3.5-5.1) H 5.5 MMOL/L (3.5-5.1) H Chloride Level 101 MMOL/L (98-107) 101 MMOL/L (98-107) Carbon Dioxide Level 22 MMOL/L (21-32) 24 MMOL/L (21-32) Anion Gap 11 mmol/L (5-15) 11 mmol/L (5-15) Blood Urea Nitrogen 20 mg/dL (7-18) H 19 mg/dL (7-18) H Creatinine 0.8 MG/DL (0.55-1.30) 1.1 MG/DL (0.55-1.30) Estimat Glomerular Filtration Rate > 60 mL/min (>60) > 60 mL/min (>60) Glucose Level 97 MG/DL (74-106) 96 MG/DL (74-106) Calcium Level 9.0 MG/DL (8.5-10.1) 9.9 MG/DL (8.5-10.1) Phosphorus Level 3.0 MG/DL (2.5-4.9) Magnesium Level 2.2 MG/DL (1.8-2.4) Total Bilirubin 0.3 MG/DL (0.2-1.0) 0.3 MG/DL (0.2-1.0) Aspartate Amino Transf (AST/SGOT) 51 U/L (15-37) H 14 U/L (15-37) L Alanine Aminotransferase (ALT/SGPT) 20 U/L (12-78) 18 U/L (12-78) Alkaline Phosphatase 114 U/L (46-116) 121 U/L (46-116) H Total Protein 7.7 G/DL (6.4-8.2) 8.7 G/DL (6.4-8.2) H Albumin 2.6 G/DL (3.4-5.0) L 2.8 G/DL (3.4-5.0) L Globulin 5.1 g/dL 5.9 g/dL Albumin/Globulin Ratio 0.5 (1.0-2.7) L 0.5 (1.0-2.7) L Current Medications Medications (Trade) Dose Ordered Sig/Wanda Route PRN Reason Start Time Stop Time Status Last Admin Dose Admin Acetaminophen (Tylenol) 650 mg Q4H PRN ORAL FEVER 12/28/17 22:00 01/27/18 21:59 Ceftriaxone Sodium 1 gm/ Dextrose 55 ml @ 110 mls/hr Q24H IVPB 01/03/18 14:30 01/10/18 14:29 01/04/18 13:45 Dextrose (Dextrose 50%) 25 ml STAT PRN IV hypoglycemia 01/01/18 14:30 01/31/18 14:29 Dextrose (Dextrose 50%) 50 ml STAT PRN IV Hypoglycemia 01/01/18 14:30 01/27/18 21:59 Levothyroxine Sodium (Synthroid) 50 mcg DAILY@0630 GT 12/30/17 06:30 01/29/18 06:29 01/04/18 06:29 Lorazepam (Ativan 2mg/ml 1ml) 2 mg Q2H PRN IV For Anxiety 12/28/17 22:00 01/04/18 21:59 Morphine Sulfate (Morphine Sulfate) 4 mg Q4H PRN IVP Severe Pain (Pain Scale 7-10) 12/28/17 22:00 01/04/18 21:59 12/30/17 05:42 Ondansetron HCl (Zofran) 4 mg Q6H PRN IVP Nausea & Vomiting 12/28/17 22:00 01/27/18 21:59 Polyethylene Glycol (Miralax) 17 gm DAILYPRN PRN ORAL Constipation 12/28/17 22:00 01/27/18 21:59 01/04/18 03:45 Sucralfate (Carafate) 1 gm FOUR TIMES A DAY GT 12/29/17 09:00 01/28/18 08:59 01/04/18 13:45 Lisy Lai M.D. Jan 04, 2018 16:23
[2018-01-04 20:00] VITALS: BP 139/100
[2018-01-05] VITALS: BP 136/89
[2018-01-05 04:00] VITALS: BP 120/83
[2018-01-05 07:35] LABS: ALANINE AMINOTRANSFERASE 14 U/L (12-78); ALBUMIN 2.8 G/DL (3.4-5.0); ALBUMIN/GLOBULIN RATIO 0.5 (1.0-2.7); ALKALINE PHOSPHATASE 133 U/L (46-116); ANION GAP 10 mmol/L (5-15); ASPARTATE AMINO TRANSFERASE 15 U/L (15-37); BILIRUBIN,TOTAL 0.2 MG/DL (0.2-1.0); BLOOD UREA NITROGEN 18 mg/dL (7-18); CALCIUM 9.7 MG/DL (8.5-10.1); CARBON DIOXIDE 22 MMOL/L (21-32); CHLORIDE 101 MMOL/L (98-107); CREATININE 1.2 MG/DL (0.55-1.30); PHOSPHORUS 3.5 MG/DL (2.5-4.9); POTASSIUM 4.6 MMOL/L (3.5-5.1); SODIUM 133 MMOL/L (136-145)
[2018-01-05 07:42] LABS: BASOPHILS % (AUTO) 0.7 % (0.0-2.0); EOSINOPHILS % (AUTO) 3.8 % (0.0-3.0); HEMATOCRIT 33.1 % (42.0-52.0); LYMPHOCYTES % (AUTO) 14.9 % (20.0-45.0); MEAN CORPUSCULAR VOLUME 83 FL (80-99); MONOCYTES % (AUTO) 8.9 % (1.0-10.0); NEUTROPHILS % (AUTO) 71.7 % (45.0-75.0); PLATELET COUNT 430 K/UL (150-450); RED BLOOD COUNT 4.01 M/UL (4.70-6.10); RED CELL DISTRIBUTION WIDTH 13.9 % (11.6-14.8); WHITE BLOOD COUNT 11.3 K/UL (4.8-10.8)
[2018-01-05 08:00] VITALS: BP 110/71
--- NOTE | 2018-01-05 08:19 | General Progress Note ---
Assessment/Plan Problem List: (1) Dysphagia ICD Codes: R13.10 - Dysphagia, unspecified SNOMED: 94325753, 970025937 (2) Anemia ICD Codes: D64.9 - Anemia, unspecified SNOMED: 599032981 (3) Iron deficiency ICD Codes: E61.1 - Iron deficiency SNOMED: 77599846 (4) Esophagitis ICD Codes: K20.9 - Esophagitis SNOMED: 39210772 (5) Respiratory failure ICD Codes: J96.90 - Respiratory failure, unspecified, unspecified whether with hypoxia or hypercapnia SNOMED: 939308946 (6) Feeding by G-tube ICD Codes: Z93.1 - Gastrostomy status SNOMED: 507072422, 924370228 Assessment/Plan monitor H&H, prn transfusions bowel regime add colace ppi BID + carafate GTFs fu labs conservator will not sign consent for endoscopy unless life threatening. Subjective ROS Limited/Unobtainable: No Allergies: Coded Allergies: NO KNOWN DRUG ALLERGIES (Verified Allergy, Unknown, 09/11/16) Objective Last 24 Hour Vital Signs Date Time Temp Pulse Resp B/P (MAP) Pulse Ox O2 Delivery O2 Flow Rate FiO2 01/05/18 08:00 50 01/05/18 08:00 98.0 86 18 110/71 100 Mechanical Ventilator 50 98.0 01/05/18 07:25 84 19 50 01/05/18 04:44 92 23 50 01/05/18 04:00 50 01/05/18 04:00 73 01/05/18 04:00 50 01/05/18 04:00 97.2 85 17 120/83 99 Mechanical Ventilator 50 97.2 01/05/18 03:03 75 16 50 01/05/18 01:01 73 17 50 01/05/18 00:03 75 22 50 01/05/18 00:00 50 01/05/18 00:00 97.7 74 18 136/89 100 Mechanical Ventilator 40 97.7 01/05/18 00:00 76 01/04/18 20:37 72 20 50 01/04/18 20:00 50 01/04/18 20:00 80 01/04/18 20:00 97.9 88 22 139/100 100 Mechanical Ventilator 40 97.9 01/04/18 19:00 76 20 50 01/04/18 17:00 90 23 50 01/04/18 16:00 40 01/04/18 16:00 97.9 80 22 151/75 100 Mechanical Ventilator 40 97.9 01/04/18 16:00 79 01/04/18 14:33 95 19 50 01/04/18 12:30 76 17 50 01/04/18 12:00 68 01/04/18 12:00 40 01/04/18 12:00 97.7 75 16 151/81 100 Mechanical Ventilator 40 97.7 01/04/18 11:15 70 16 50 01/04/18 08:43 72 16 50 Intake and Output 01/04/18 01/05/18 19:00 07:00 Intake Total 1145 ml 825 ml Output Total 800 ml 550 ml Balance 345 ml 275 ml Intake Free Water 300 ml Tube Feeding 605 ml 825 ml Other 240 ml Output Urine Total 800 ml 550 ml # Bowel Movements 1 1 Laboratory Tests 01/04/18 12:40: White Blood Count 11.1H, Red Blood Count 4.02L, Hemoglobin 10.6L, Hematocrit 32.9L, Mean Corpuscular Volume 82, Mean Corpuscular Hemoglobin 26.2L, Mean Corpuscular Hemoglobin Concent 32.1, Red Cell Distribution Width 13.8, Platelet Count 410, Mean Platelet Volume 7.0, Neutrophils (%) (Auto) 63.3, Lymphocytes (% ) (Auto) 21.5, Monocytes (%) (Auto) 9.0, Eosinophils (%) (Auto) 5.6H, Basophils (%) (Auto) 0.6, Sodium Level 136, Potassium Level 5.5H, Chloride Level 101, Carbon Dioxide Level 24, Anion Gap 11, Blood Urea Nitrogen 19H, Creatinine 1.1, Estimat Glomerular Filtration Rate > 60, Glucose Level 96, Calcium Level 9.9, Total Bilirubin 0.3, Aspartate Amino Transf (AST/SGOT) 14L, Alanine Aminotransferase (ALT/SGPT) 18, Alkaline Phosphatase 121H, Total Protein 8.7H, Albumin 2.8L, Globulin 5.9, Albumin/Globulin Ratio 0.5L 01/04/18 18:15: Stool Occult Blood [Pending] 01/05/18 06:45: White Blood Count 11.3H, Red Blood Count 4.01L, Hemoglobin 11.0L, Hematocrit 33.1L, Mean Corpuscular Volume 83, Mean Corpuscular Hemoglobin 27.4, Mean Corpuscular Hemoglobin Concent 33.2, Red Cell Distribution Width 13.9, Platelet Count 430, Mean Platelet Volume 7.2, Neutrophils (%) (Auto) 71.7, Lymphocytes (% ) (Auto) 14.9L, Monocytes (%) (Auto) 8.9, Eosinophils (%) (Auto) 3.8H, Basophils (%) (Auto) 0.7, Sodium Level 133L, Potassium Level 4.6, Chloride Level 101, Carbon Dioxide Level 22, Anion Gap 10, Blood Urea Nitrogen 18, Creatinine 1.2, Estimat Glomerular Filtration Rate > 60, Glucose Level 113H, Calcium Level 9.7, Total Bilirubin 0.2, Aspartate Amino Transf (AST/SGOT) 15, Alanine Aminotransferase (ALT/SGPT) 14, Alkaline Phosphatase 133H, Total Protein 8.7H, Albumin 2.8L, Globulin 5.9, Albumin/Globulin Ratio 0.5L, Phosphorus Level 3.5, Magnesium Level 2.0 Height (Feet): 5 Height (Inches): 6.00 Weight (Pounds): 138 General Appearance: no apparent distress EENT: normal ENT inspection Neck: supple Cardiovascular: normal rate Respiratory/Chest: decreased breath sounds Abdomen: normal bowel sounds, non tender, soft Extremities: non-tender FRAN GALAN Jan 05, 2018 08:19
[2018-01-05] MEDS ORDERED: Docusate 100mg cap ORAL SCH (09:00)
[2018-01-05] MEDS ORDERED: Acetaminophen 650mg/20.3ml GT PRN (09:00)
[2018-01-05] MEDS: Sucralfate 1gm tab GT SCH ×4 (09:13→20:36)
[2018-01-05] MEDS: Docusate 100mg/10ml Liq NG SCH ×2 (09:13→17:32)
--- NOTE | 2018-01-05 10:55 | Pulmonology Progress Note ---
Assessment/Plan Problems: (1) Respiratory failure (2) Sepsis (3) Prerenal azotemia (4) [facility] resident (5) Psychosis (6) Debility (7) Alzheimer's dementia Respiratory: monitor respiratory rate, adjust FIO2 Cardiac: continue to monitor HR/BP Renal: F/U I&O, check electrolytes Infectious Disease: check cultures Gastrointestinal: continue feedings/current rate Endocrine: monitor blood sugar Hematologic: monitor H/H Neurologic: PRN Ativan, PRN Morphine Affect: PRN ativan Prophylaxis: Protonix Notes Reviewed: ID, GI Discussed with: nurses, consultants, continuous pillowcase cutter Subjective ROS Limited/Unobtainable: Yes Constitutional: Reports: no symptoms HEENT: Repors: no symptoms Respiratory: Reports: no symptoms Allergies: Coded Allergies: NO KNOWN DRUG ALLERGIES (Verified Allergy, Unknown, 09/11/16) Objective Last 24 Hour Vital Signs Date Time Temp Pulse Resp B/P (MAP) Pulse Ox O2 Delivery O2 Flow Rate FiO2 01/05/18 08:00 50 01/05/18 08:00 98.0 86 18 110/71 100 Mechanical Ventilator 50 98.0 01/05/18 08:00 82 01/05/18 07:25 84 19 50 01/05/18 04:44 92 23 50 01/05/18 04:00 50 01/05/18 04:00 73 01/05/18 04:00 50 01/05/18 04:00 97.2 85 17 120/83 99 Mechanical Ventilator 50 97.2 01/05/18 03:03 75 16 50 01/05/18 01:01 73 17 50 01/05/18 00:03 75 22 50 01/05/18 00:00 50 01/05/18 00:00 97.7 74 18 136/89 100 Mechanical Ventilator 40 97.7 01/05/18 00:00 76 01/04/18 20:37 72 20 50 01/04/18 20:00 50 01/04/18 20:00 80 01/04/18 20:00 97.9 88 22 139/100 100 Mechanical Ventilator 40 97.9 01/04/18 19:00 76 20 50 01/04/18 17:00 90 23 50 01/04/18 16:00 40 01/04/18 16:00 97.9 80 22 151/75 100 Mechanical Ventilator 40 97.9 01/04/18 16:00 79 01/04/18 14:33 95 19 50 01/04/18 12:30 76 17 50 01/04/18 12:00 68 01/04/18 12:00 40 01/04/18 12:00 97.7 75 16 151/81 100 Mechanical Ventilator 40 97.7 01/04/18 11:15 70 16 50 Intake and Output 01/04/18 01/05/18 19:00 07:00 Intake Total 1145 ml 825 ml Output Total 800 ml 550 ml Balance 345 ml 275 ml Intake Free Water 300 ml Tube Feeding 605 ml 825 ml Other 240 ml Output Urine Total 800 ml 550 ml # Bowel Movements 1 1 General Appearance: cachetic HEENT: normocephalic Respiratory/Chest: chest wall non-tender, lungs clear Cardiovascular: normal peripheral pulses, normal rate Abdomen: normal bowel sounds Extremities: no cyanosis Skin: no lesions Laboratory Tests 01/04/18 12:40: White Blood Count 11.1H, Red Blood Count 4.02L, Hemoglobin 10.6L, Hematocrit 32.9L, Mean Corpuscular Volume 82, Mean Corpuscular Hemoglobin 26.2L, Mean Corpuscular Hemoglobin Concent 32.1, Red Cell Distribution Width 13.8, Platelet Count 410, Mean Platelet Volume 7.0, Neutrophils (%) (Auto) 63.3, Lymphocytes (% ) (Auto) 21.5, Monocytes (%) (Auto) 9.0, Eosinophils (%) (Auto) 5.6H, Basophils (%) (Auto) 0.6, Sodium Level 136, Potassium Level 5.5H, Chloride Level 101, Carbon Dioxide Level 24, Anion Gap 11, Blood Urea Nitrogen 19H, Creatinine 1.1, Estimat Glomerular Filtration Rate > 60, Glucose Level 96, Calcium Level 9.9, Total Bilirubin 0.3, Aspartate Amino Transf (AST/SGOT) 14L, Alanine Aminotransferase (ALT/SGPT) 18, Alkaline Phosphatase 121H, Total Protein 8.7H, Albumin 2.8L, Globulin 5.9, Albumin/Globulin Ratio 0.5L 01/04/18 18:15: Stool Occult Blood [Pending] 01/05/18 06:45: White Blood Count 11.3H, Red Blood Count 4.01L, Hemoglobin 11.0L, Hematocrit 33.1L, Mean Corpuscular Volume 83, Mean Corpuscular Hemoglobin 27.4, Mean Corpuscular Hemoglobin Concent 33.2, Red Cell Distribution Width 13.9, Platelet Count 430, Mean Platelet Volume 7.2, Neutrophils (%) (Auto) 71.7, Lymphocytes (% ) (Auto) 14.9L, Monocytes (%) (Auto) 8.9, Eosinophils (%) (Auto) 3.8H, Basophils (%) (Auto) 0.7, Sodium Level 133L, Potassium Level 4.6, Chloride Level 101, Carbon Dioxide Level 22, Anion Gap 10, Blood Urea Nitrogen 18, Creatinine 1.2, Estimat Glomerular Filtration Rate > 60, Glucose Level 113H, Calcium Level 9.7, Total Bilirubin 0.2, Aspartate Amino Transf (AST/SGOT) 15, Alanine Aminotransferase (ALT/SGPT) 14, Alkaline Phosphatase 133H, Total Protein 8.7H, Albumin 2.8L, Globulin 5.9, Albumin/Globulin Ratio 0.5L, Phosphorus Level 3.5, Magnesium Level 2.0 Current Medications Medications (Trade) Dose Ordered Sig/Wanda Route PRN Reason Start Time Stop Time Status Last Admin Dose Admin Acetaminophen (Tylenol) 650 mg Q4H PRN GT FEVER 01/05/18 09:00 02/04/18 08:59 Ceftriaxone Sodium 1 gm/ Dextrose 55 ml @ 110 mls/hr Q24H IVPB 01/03/18 14:30 01/10/18 14:29 01/04/18 13:45 Dextrose (Dextrose 50%) 25 ml STAT PRN IV hypoglycemia 01/01/18 14:30 01/31/18 14:29 Dextrose (Dextrose 50%) 50 ml STAT PRN IV Hypoglycemia 01/01/18 14:30 01/27/18 21:59 Docusate Sodium (Colace) 100 mg TWICE A DAY NG 01/05/18 09:00 02/04/18 08:59 01/05/18 09:13 Levothyroxine Sodium (Synthroid) 50 mcg DAILY@0630 GT 12/30/17 06:30 01/29/18 06:29 01/05/18 06:34 Ondansetron HCl (Zofran) 4 mg Q6H PRN IVP Nausea & Vomiting 12/28/17 22:00 01/27/18 21:59 Polyethylene Glycol (Miralax) 17 gm DAILYPRN PRN ORAL Constipation 12/28/17 22:00 01/27/18 21:59 01/04/18 20:22 Sucralfate (Carafate) 1 gm FOUR TIMES A DAY GT 12/29/17 09:00 01/28/18 08:59 01/05/18 09:13 Huma Keating MD Jan 05, 2018 10:55
[2018-01-05 12:00] VITALS: BP 122/76
--- NOTE | 2018-01-05 13:15 | Infectious Diseases Prog Note ---
Assessment/Plan Assessment/Plan ASSESSMENT: The patient is a 67-year-old male with, -. Leukocytosis, recurrent, improving- suspect 2ry to UTI -repeat u/a 01/01 WBC >100K. nit neg, leuk +3; ucx >100k P stuarti (S Ceftriaxone, Cefepime; R Genta, levo/cirp, bactrim) -CXR 12/31: Right basilar atelectasis. No acute process otherwise -Bcx NTD -CXR: Mild bilateral interstitial edema versus infiltrates. ; sp cx MDR ABC (S Polymixin B, Colistin, Minocyclne) and MDR PsA (S Gentamicin, I Cefepime ) , GGS (colonizers) - Afebrile. - Pyuria/bacteriuria- likely UTI -u/a WBC 5-10, nit +, leuk +3; ucx>100K P, stuarti (S Ceftriaxone) -History of upper GI bleed. - History of chronic anemia status post PEG and bedbound. - Chronic respiratory failure. -. Status post trach and PEG. -. Functional quadriplegia. -. Encephalopathy. -. CAD. -. CHF. -. Hypothyroidism. -. Diabetes. -. Bipolar disorder/schizophrenia. -VRE, MRSA colonized PLAN: -Continue IV Ceftriaxone abx d# 6 /7-10 for Providencia stuarti UTI; upon discharge can be transition to PO Cefdinir -will not treat MDR ABC and MDR PsA in sputum as they are colonizers -01/03 SP Zosyn #4 -. Monitor CBC/BMP, temperatures. -. Monitor cultures (blood ). -Cdiff if diarrhea -. Management of anemia as per rest of the team. -. We will monitor the patient's clinical course and laboratories and based on those, we will do further recommendations. Subjective Constitutional: Denies: no symptoms, fever, chills, fatigue, anorexia, drenching sweats, other Allergies: Coded Allergies: NO KNOWN DRUG ALLERGIES (Verified Allergy, Unknown, 09/11/16) Objective Vital Signs Last 24 Hour Vital Signs Date Time Temp Pulse Resp B/P (MAP) Pulse Ox O2 Delivery O2 Flow Rate FiO2 01/05/18 12:38 8 20 50 01/05/18 12:00 98.0 91 18 122/76 95 Mechanical Ventilator 50 98.0 01/05/18 12:00 50 01/05/18 11:11 88 18 50 01/05/18 09:15 90 20 50 01/05/18 08:00 50 01/05/18 08:00 98.0 86 18 110/71 100 Mechanical Ventilator 50 98.0 01/05/18 08:00 82 01/05/18 07:25 84 19 50 01/05/18 04:44 92 23 50 01/05/18 04:00 50 01/05/18 04:00 73 01/05/18 04:00 50 01/05/18 04:00 97.2 85 17 120/83 99 Mechanical Ventilator 50 97.2 01/05/18 03:03 75 16 50 01/05/18 01:01 73 17 50 01/05/18 00:03 75 22 50 01/05/18 00:00 50 01/05/18 00:00 97.7 74 18 136/89 100 Mechanical Ventilator 40 97.7 01/05/18 00:00 76 01/04/18 20:37 72 20 50 01/04/18 20:00 50 01/04/18 20:00 80 01/04/18 20:00 97.9 88 22 139/100 100 Mechanical Ventilator 40 97.9 01/04/18 19:00 76 20 50 01/04/18 17:00 90 23 50 01/04/18 16:00 40 01/04/18 16:00 97.9 80 22 151/75 100 Mechanical Ventilator 40 97.9 01/04/18 16:00 79 01/04/18 14:33 95 19 50 Height (Feet): 5 Height (Inches): 6.00 Weight (Pounds): 138 HEENT: atraumatic Respiratory/Chest: lungs clear Cardiovascular: regular rhythm Abdomen: no organomegaly Laboratory Tests Test 01/04/18 18:15 01/05/18 06:45 01/05/18 12:15 Stool Occult Blood Pending Pending White Blood Count 11.3 K/UL (4.8-10.8) H Red Blood Count 4.01 M/UL (4.70-6.10) L Hemoglobin 11.0 G/DL (14.2-18.0) L Hematocrit 33.1 % (42.0-52.0) L Mean Corpuscular Volume 83 FL (80-99) Mean Corpuscular Hemoglobin 27.4 PG (27.0-31.0) Mean Corpuscular Hemoglobin Concent 33.2 G/DL (32.0-36.0) Red Cell Distribution Width 13.9 % (11.6-14.8) Platelet Count 430 K/UL (150-450) Mean Platelet Volume 7.2 FL (6.5-10.1) Neutrophils (%) (Auto) 71.7 % (45.0-75.0) Lymphocytes (%) (Auto) 14.9 % (20.0-45.0) L Monocytes (%) (Auto) 8.9 % (1.0-10.0) Eosinophils (%) (Auto) 3.8 % (0.0-3.0) H Basophils (%) (Auto) 0.7 % (0.0-2.0) Sodium Level 133 MMOL/L (136-145) L Potassium Level 4.6 MMOL/L (3.5-5.1) Chloride Level 101 MMOL/L (98-107) Carbon Dioxide Level 22 MMOL/L (21-32) Anion Gap 10 mmol/L (5-15) Blood Urea Nitrogen 18 mg/dL (7-18) Creatinine 1.2 MG/DL (0.55-1.30) Estimat Glomerular Filtration Rate > 60 mL/min (>60) Glucose Level 113 MG/DL (74-106) H Calcium Level 9.7 MG/DL (8.5-10.1) Phosphorus Level 3.5 MG/DL (2.5-4.9) Magnesium Level 2.0 MG/DL (1.8-2.4) Total Bilirubin 0.2 MG/DL (0.2-1.0) Aspartate Amino Transf (AST/SGOT) 15 U/L (15-37) Alanine Aminotransferase (ALT/SGPT) 14 U/L (12-78) Alkaline Phosphatase 133 U/L (46-116) H Total Protein 8.7 G/DL (6.4-8.2) H Albumin 2.8 G/DL (3.4-5.0) L Globulin 5.9 g/dL Albumin/Globulin Ratio 0.5 (1.0-2.7) L Current Medications Medications (Trade) Dose Ordered Sig/Wanda Route PRN Reason Start Time Stop Time Status Last Admin Dose Admin Acetaminophen (Tylenol) 650 mg Q4H PRN GT FEVER 01/05/18 09:00 02/04/18 08:59 Ceftriaxone Sodium 1 gm/ Dextrose 55 ml @ 110 mls/hr Q24H IVPB 01/03/18 14:30 01/10/18 14:29 01/04/18 13:45 Dextrose (Dextrose 50%) 25 ml STAT PRN IV hypoglycemia 01/01/18 14:30 01/31/18 14:29 Dextrose (Dextrose 50%) 50 ml STAT PRN IV Hypoglycemia 01/01/18 14:30 01/27/18 21:59 Docusate Sodium (Colace) 100 mg TWICE A DAY NG 01/05/18 09:00 02/04/18 08:59 01/05/18 09:13 Levothyroxine Sodium (Synthroid) 50 mcg DAILY@0630 GT 12/30/17 06:30 01/29/18 06:29 01/05/18 06:34 Ondansetron HCl (Zofran) 4 mg Q6H PRN IVP Nausea & Vomiting 12/28/17 22:00 01/27/18 21:59 Polyethylene Glycol (Miralax) 17 gm DAILYPRN PRN ORAL Constipation 12/28/17 22:00 01/27/18 21:59 01/04/18 20:22 Sucralfate (Carafate) 1 gm FOUR TIMES A DAY GT 12/29/17 09:00 01/28/18 08:59 01/05/18 09:13 Cesario Daniels MD Jan 05, 2018 13:15
[2018-01-05] MEDS: cefTRIAXone 1 GM in D5W 55 ML IVPB SCH (15:58)
[2018-01-05 16:00] VITALS: BP 158/76
[2018-01-05] MEDS ORDERED: NS 500ML ONE (19:52)
[2018-01-05 20:00] VITALS: BP 142/94
[2018-01-05] MEDS ORDERED: NS 275ml ONE (21:55)
[2018-01-06] VITALS: BP 142/84
[2018-01-06 04:00] VITALS: BP 143/82
[2018-01-06 04:34] LABS: BASOPHILS % (AUTO) 0.5 % (0.0-2.0); EOSINOPHILS % (AUTO) 4.2 % (0.0-3.0); HEMATOCRIT 32.6 % (42.0-52.0); HEMOGLOBIN 11.1 G/DL (14.2-18.0); MEAN CORPUSCULAR VOLUME 81 FL (80-99); MONOCYTES % (AUTO) 8.5 % (1.0-10.0); NEUTROPHILS % (AUTO) 68.7 % (45.0-75.0); PLATELET COUNT 460 K/UL (150-450); RED BLOOD COUNT 4.02 M/UL (4.70-6.10); RED CELL DISTRIBUTION WIDTH 13.7 % (11.6-14.8); WHITE BLOOD COUNT 10.7 K/UL (4.8-10.8)
[2018-01-06 05:14] LABS: ALANINE AMINOTRANSFERASE 20 U/L (12-78); ALBUMIN 2.8 G/DL (3.4-5.0); ALBUMIN/GLOBULIN RATIO 0.5 (1.0-2.7); ALKALINE PHOSPHATASE 136 U/L (46-116); ANION GAP 10 mmol/L (5-15); ASPARTATE AMINO TRANSFERASE 14 U/L (15-37); BILIRUBIN,TOTAL 0.2 MG/DL (0.2-1.0); BLOOD UREA NITROGEN 24 mg/dL (7-18); CALCIUM 9.7 MG/DL (8.5-10.1); CARBON DIOXIDE 24 MMOL/L (21-32); CHLORIDE 101 MMOL/L (98-107); CREATININE 1.2 MG/DL (0.55-1.30); PHOSPHORUS 4.1 MG/DL (2.5-4.9); POTASSIUM 4.3 MMOL/L (3.5-5.1); SODIUM 135 MMOL/L (136-145)
[2018-01-06 08:00] VITALS: BP 125/68
--- NOTE | 2018-01-06 08:01 | General Progress Note ---
Assessment/Plan Problem List: (1) Dysphagia ICD Codes: R13.10 - Dysphagia, unspecified SNOMED: 08622780, 589862803 (2) Anemia ICD Codes: D64.9 - Anemia, unspecified SNOMED: 663941635 (3) Iron deficiency ICD Codes: E61.1 - Iron deficiency SNOMED: 03856804 (4) Esophagitis ICD Codes: K20.9 - Esophagitis SNOMED: 53077754 (5) Respiratory failure ICD Codes: J96.90 - Respiratory failure, unspecified, unspecified whether with hypoxia or hypercapnia SNOMED: 322020215 (6) Feeding by G-tube ICD Codes: Z93.1 - Gastrostomy status SNOMED: 785350797, 929882681 Assessment/Plan monitor H&H, prn transfusions bowel regime add colace ppi BID + carafate GTFs fu labs conservator will not sign consent for endoscopy unless life threatening resume GTF. Subjective ROS Limited/Unobtainable: No Allergies: Coded Allergies: NO KNOWN DRUG ALLERGIES (Verified Allergy, Unknown, 09/11/16) Subjective GT was changed at the bedside Objective Last 24 Hour Vital Signs Date Time Temp Pulse Resp B/P (MAP) Pulse Ox O2 Delivery O2 Flow Rate FiO2 01/06/18 04:46 89 16 50 01/06/18 04:00 98.2 89 16 143/82 100 Mechanical Ventilator 50 98.2 01/06/18 04:00 50 01/06/18 03:57 90 01/06/18 02:51 98 16 50 01/06/18 01:14 94 16 50 01/06/18 00:00 50 01/06/18 00:00 93 01/06/18 00:00 97.7 92 18 142/84 100 Mechanical Ventilator 50 97.7 01/05/18 22:56 92 16 50 01/05/18 21:19 94 16 50 01/05/18 20:00 98.2 96 20 142/94 98 Mechanical Ventilator 50 98.2 01/05/18 20:00 50 01/05/18 20:00 89 01/05/18 19:08 91 16 50 01/05/18 17:03 89 20 50 01/05/18 16:00 50 01/05/18 16:00 90 01/05/18 16:00 97.2 95 18 158/76 95 Mechanical Ventilator 50 97.2 01/05/18 14:30 85 21 50 01/05/18 12:38 89 20 50 01/05/18 12:00 98.0 91 18 122/76 95 Mechanical Ventilator 50 98.0 01/05/18 12:00 50 01/05/18 12:00 90 01/05/18 11:11 88 18 50 01/05/18 09:15 90 20 50 Intake and Output 01/05/18 01/06/18 19:00 07:00 Intake Total 385 ml 655 ml Output Total 750 ml 175 ml Balance -365 ml 480 ml Intake Free Water 50 ml IV Total 55 ml Tube Feeding 330 ml 605 ml Output Urine Total 750 ml 175 ml # Bowel Movements 2 Laboratory Tests 01/05/18 12:15: Stool Occult Blood [Pending] 01/06/18 04:00: White Blood Count 10.7, Red Blood Count 4.02L, Hemoglobin 11.1L, Hematocrit 32.6L, Mean Corpuscular Volume 81, Mean Corpuscular Hemoglobin 27.6, Mean Corpuscular Hemoglobin Concent 34.0, Red Cell Distribution Width 13.7, Platelet Count 460H, Mean Platelet Volume 7.0, Neutrophils (%) (Auto) 68.7, Lymphocytes ( %) (Auto) 18.0L, Monocytes (%) (Auto) 8.5, Eosinophils (%) (Auto) 4.2H, Basophils (%) (Auto) 0.5, Sodium Level 135L, Potassium Level 4.3, Chloride Level 101, Carbon Dioxide Level 24, Anion Gap 10, Blood Urea Nitrogen 24H, Creatinine 1.2, Estimat Glomerular Filtration Rate > 60, Glucose Level 128H, Calcium Level 9.7, Phosphorus Level 4.1, Magnesium Level 2.1, Total Bilirubin 0.2, Aspartate Amino Transf (AST/SGOT) 14L, Alanine Aminotransferase (ALT/SGPT) 20, Alkaline Phosphatase 136H, Total Protein 8.7H, Albumin 2.8L, Globulin 5.9, Albumin/Globulin Ratio 0.5L Height (Feet): 5 Height (Inches): 6.00 Weight (Pounds): 137 General Appearance: no apparent distress EENT: normal ENT inspection Neck: supple Cardiovascular: normal rate Respiratory/Chest: decreased breath sounds Abdomen: normal bowel sounds, non tender, soft Extremities: non-tender VOSOGHI,FRAN Jan 06, 2018 08:01
[2018-01-06] MEDS: Docusate 100mg/10ml Liq NG SCH ×2 (09:00→18:00)
[2018-01-06] MEDS: Sucralfate 1gm tab GT SCH ×4 (10:40→20:40)
--- NOTE | 2018-01-06 11:18 | Diagnostic Imaging Report ---
Indication: Gastrostomy check Comparison: 10/18/2017 Single view of the abdomen obtained Findings: Contrast instilled through the gastrostomy opacifying the tip of the tube which is in the mid body of the stomach in good position. There is contrast in the stomach. No leak identified. Incidental moderate rectal fecal impaction demonstrated. IMPRESSION: Unremarkable gastrostomy. Fecal impaction
[2018-01-06 12:00] VITALS: BP 144/82
--- NOTE | 2018-01-06 12:44 | Pulmonology Progress Note ---
Assessment/Plan Problems: (1) Respiratory failure (2) Sepsis (3) Prerenal azotemia (4) [facility] resident (5) Psychosis (6) Debility (7) Alzheimer's dementia Respiratory: monitor respiratory rate, adjust FIO2, CXR Cardiac: continue to monitor HR/BP Renal: F/U I&O, check electrolytes Infectious Disease: check cultures Gastrointestinal: continue feedings/current rate Hematologic: monitor H/H, transfuse if hgb<8.5 Neurologic: keep patient comfortable Affect: PRN ativan Prophylaxis: Protonix Notes Reviewed: 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 with: nurses, consultants, correctional casework specialist Subjective ROS Limited/Unobtainable: No Constitutional: Reports: no symptoms HEENT: Repors: no symptoms Respiratory: Reports: no symptoms Allergies: Coded Allergies: NO KNOWN DRUG ALLERGIES (Verified Allergy, Unknown, 09/11/16) Huma Keating MD Jan 06, 2018 12:44
[2018-01-06] MEDS: cefTRIAXone 1 GM in D5W 55 ML IVPB SCH (13:17)
[2018-01-06 16:00] VITALS: BP 154/80
[2018-01-06 20:00] VITALS: BP 100/60
[2018-01-07] VITALS: BP 110/55
[2018-01-07 04:00] VITALS: BP 109/64
[2018-01-07 04:39] LABS: BASOPHILS % (AUTO) 0.7 % (0.0-2.0); EOSINOPHILS % (AUTO) 3.2 % (0.0-3.0); HEMATOCRIT 32.2 % (42.0-52.0); HEMOGLOBIN 10.8 G/DL (14.2-18.0); LYMPHOCYTES % (AUTO) 17.4 % (20.0-45.0); MEAN CORPUSCULAR VOLUME 83 FL (80-99); MONOCYTES % (AUTO) 7.2 % (1.0-10.0); NEUTROPHILS % (AUTO) 71.6 % (45.0-75.0); PLATELET COUNT 422 K/UL (150-450); RED BLOOD COUNT 3.88 M/UL (4.70-6.10); RED CELL DISTRIBUTION WIDTH 14.3 % (11.6-14.8); WHITE BLOOD COUNT 9.8 K/UL (4.8-10.8)
[2018-01-07 05:22] LABS: ALANINE AMINOTRANSFERASE 18 U/L (12-78); ALBUMIN 2.8 G/DL (3.4-5.0); ALBUMIN/GLOBULIN RATIO 0.5 (1.0-2.7); ALKALINE PHOSPHATASE 137 U/L (46-116); ANION GAP 10 mmol/L (5-15); ASPARTATE AMINO TRANSFERASE 12 U/L (15-37); BILIRUBIN,TOTAL 0.2 MG/DL (0.2-1.0); BLOOD UREA NITROGEN 26 mg/dL (7-18); CALCIUM 9.6 MG/DL (8.5-10.1); CARBON DIOXIDE 23 MMOL/L (21-32); CHLORIDE 102 MMOL/L (98-107); CREATININE 1.3 MG/DL (0.55-1.30); PHOSPHORUS 3.6 MG/DL (2.5-4.9); POTASSIUM 4.3 MMOL/L (3.5-5.1); SODIUM 135 MMOL/L (136-145)
[2018-01-07] MEDS: Docusate 100mg/10ml Liq NG SCH (07:49)
[2018-01-07 08:00] VITALS: BP 105/68
[2018-01-07] MEDS: Sucralfate 1gm tab GT SCH ×2 (08:53→13:29)
--- NOTE | 2018-01-07 11:05 | Pulmonology Progress Note ---
Assessment/Plan Problems: (1) Respiratory failure (2) Sepsis (3) Prerenal azotemia (4) [facility] resident (5) Psychosis (6) Debility (7) Alzheimer's dementia Respiratory: monitor respiratory rate, CXR Cardiac: continue to monitor HR/BP Renal: F/U I&O, check electrolytes Infectious Disease: check cultures - finishing IV abx Gastrointestinal: continue feedings/current rate Endocrine: continue sliding scale insulin Hematologic: transfuse if hgb<8.5 Neurologic: PRN Ativan, PRN Morphine, keep patient comfortable Affect: PRN ativan Prophylaxis: Protonix, Heparin Notes Reviewed: ID Discussed with: nurses, consultants, case management specialist Subjective ROS Limited/Unobtainable: No Constitutional: Reports: no symptoms HEENT: Repors: no symptoms Respiratory: Reports: no symptoms Allergies: Coded Allergies: NO KNOWN DRUG ALLERGIES (Verified Allergy, Unknown, 09/11/16) Objective Last 24 Hour Vital Signs Date Time Temp Pulse Resp B/P (MAP) Pulse Ox O2 Delivery O2 Flow Rate FiO2 01/07/18 10:42 86 16 50 01/07/18 08:44 82 23 50 01/07/18 08:00 50 01/07/18 08:00 88 01/07/18 08:00 97.7 93 19 105/68 95 Mechanical Ventilator 50 97.7 01/07/18 07:14 84 21 50 01/07/18 04:51 85 16 50 01/07/18 04:00 86 01/07/18 04:00 97.5 71 18 109/64 99 Mechanical Ventilator 50 97.5 01/07/18 04:00 50 01/07/18 03:38 87 16 50 01/07/18 00:58 89 16 50 01/07/18 00:00 97.0 84 18 110/55 99 Mechanical Ventilator 50 97.0 01/07/18 00:00 86 01/07/18 00:00 50 01/06/18 23:30 86 16 50 01/06/18 21:08 87 20 50 01/06/18 20:00 97.0 92 18 100/60 100 Mechanical Ventilator 50 97.0 01/06/18 20:00 86 01/06/18 20:00 50 01/06/18 18:53 97 20 50 01/06/18 16:55 94 20 50 01/06/18 16:32 89 01/06/18 16:00 50 01/06/18 16:00 98.3 89 16 154/80 100 Mechanical Ventilator 50 98.3 01/06/18 14:49 97 16 50 01/06/18 12:58 95 17 50 01/06/18 12:00 50 01/06/18 12:00 97.4 94 16 144/82 95 Mechanical Ventilator 50 97.4 01/06/18 12:00 92 Intake and Output 01/06/18 01/07/18 19:00 07:00 Intake Total 775 ml 605 ml Output Total 550 ml 400 ml Balance 225 ml 205 ml IV Total 55 ml Tube Feeding 660 ml 605 ml Other 60 ml Output Urine Total 550 ml 400 ml # Bowel Movements 4 General Appearance: WD/WN HEENT: normocephalic, atraumatic Respiratory/Chest: chest wall non-tender, lungs clear Cardiovascular: normal peripheral pulses, normal rate Abdomen: normal bowel sounds, soft, non tender Extremities: no cyanosis Skin: no rash Neurologic/Psychiatric: tar kettle runner II-XII grossly normal Lymphatic: no neck adenopathy Musculoskeletal: normal muscle bulk Laboratory Tests 01/07/18 04:00: White Blood Count 9.8, Red Blood Count 3.88L, Hemoglobin 10.8L, Hematocrit 32.2L , Mean Corpuscular Volume 83, Mean Corpuscular Hemoglobin 27.8, Mean Corpuscular Hemoglobin Concent 33.6, Red Cell Distribution Width 14.3, Platelet Count 422, Mean Platelet Volume 7.1, Neutrophils (%) (Auto) 71.6, Lymphocytes (% ) (Auto) 17.4L, Monocytes (%) (Auto) 7.2, Eosinophils (%) (Auto) 3.2H, Basophils (%) (Auto) 0.7, Prothrombin Time 10.3, Prothromb Time International Ratio 1.0, Activated Partial Thromboplast Time 31, Sodium Level 135L, Potassium Level 4.3, Chloride Level 102, Carbon Dioxide Level 23, Anion Gap 10, Blood Urea Nitrogen 26H, Creatinine 1.3, Estimat Glomerular Filtration Rate 54.7, Glucose Level 132H, Calcium Level 9.6, Phosphorus Level 3.6, Magnesium Level 2.2 , Total Bilirubin 0.2, Aspartate Amino Transf (AST/SGOT) 12L, Alanine Aminotransferase (ALT/SGPT) 18, Alkaline Phosphatase 137H, Total Protein 8.6H, Albumin 2.8L, Globulin 5.8, Albumin/Globulin Ratio 0.5L Current Medications Medications (Trade) Dose Ordered Sig/Wanda Route PRN Reason Start Time Stop Time Status Last Admin Dose Admin Acetaminophen (Tylenol) 650 mg Q4H PRN GT FEVER 01/05/18 09:00 02/04/18 08:59 Ceftriaxone Sodium 1 gm/ Dextrose 55 ml @ 110 mls/hr Q24H IVPB 01/03/18 14:30 01/10/18 14:29 01/06/18 13:17 Dextrose (Dextrose 50%) 25 ml STAT PRN IV hypoglycemia 01/01/18 14:30 01/31/18 14:29 Dextrose (Dextrose 50%) 50 ml STAT PRN IV Hypoglycemia 01/01/18 14:30 01/27/18 21:59 Docusate Sodium (Colace) 100 mg TWICE A DAY NG 01/05/18 09:00 02/04/18 08:59 01/05/18 09:13 Levothyroxine Sodium (Synthroid) 50 mcg DAILY@0630 GT 12/30/17 06:30 01/29/18 06:29 01/07/18 06:08 Linezolid (Zyvox) 600 mg EVERY 12 HOURS GT 01/06/18 21:00 01/11/18 20:59 01/07/18 08:53 Ondansetron HCl (Zofran) 4 mg Q6H PRN IVP Nausea & Vomiting 12/28/17 22:00 01/27/18 21:59 Polyethylene Glycol (Miralax) 17 gm DAILYPRN PRN ORAL Constipation 12/28/17 22:00 01/27/18 21:59 01/04/18 20:22 Sucralfate (Carafate) 1 gm FOUR TIMES A DAY GT 12/29/17 09:00 01/28/18 08:59 01/07/18 08:53 Huma Keating MD Jan 07, 2018 11:05
--- NOTE | 2018-01-07 11:09 | GI Progress Note ---
Assessment/Plan Problems: (1) Dysphagia ICD Codes: R13.10 - Dysphagia, unspecified SNOMED: 82144450, 502993983 (2) Fecal impaction in rectum ICD Codes: K56.41 - Fecal impaction SNOMED: 59356698 (3) Anemia ICD Codes: D64.9 - Anemia, unspecified SNOMED: 490442792 (4) Iron deficiency ICD Codes: E61.1 - Iron deficiency SNOMED: 06582452 (5) Esophagitis ICD Codes: K20.9 - Esophagitis SNOMED: 46166958 (6) Protein-calorie malnutrition, severe ICD Codes: E43 - Unspecified severe protein-calorie malnutrition SNOMED: 056381685 (7) Feeding by G-tube ICD Codes: Z93.1 - Gastrostomy status SNOMED: 913799712, 436993199 Status: unchanged Status Narrative Discussed with Dr. Wilson. Assessment/Plan monitor H&H, prn transfusions bowel regime add colace ppi BID + carafate GTFs fu labs conservator will not sign consent for endoscopy unless life threatening resume GTF. Subjective Subjective limited Objective Last 24 Hour Vital Signs Date Time Temp Pulse Resp B/P (MAP) Pulse Ox O2 Delivery O2 Flow Rate FiO2 01/07/18 10:42 86 16 50 01/07/18 08:44 82 23 50 01/07/18 08:00 50 01/07/18 08:00 88 01/07/18 08:00 97.7 93 19 105/68 95 Mechanical Ventilator 50 97.7 01/07/18 07:14 84 21 50 01/07/18 04:51 85 16 50 01/07/18 04:00 86 01/07/18 04:00 97.5 71 18 109/64 99 Mechanical Ventilator 50 97.5 01/07/18 04:00 50 01/07/18 03:38 87 16 50 01/07/18 00:58 89 16 50 01/07/18 00:00 97.0 84 18 110/55 99 Mechanical Ventilator 50 97.0 01/07/18 00:00 86 01/07/18 00:00 50 01/06/18 23:30 86 16 50 01/06/18 21:08 87 20 50 01/06/18 20:00 97.0 92 18 100/60 100 Mechanical Ventilator 50 97.0 01/06/18 20:00 86 01/06/18 20:00 50 01/06/18 18:53 97 20 50 01/06/18 16:55 94 20 50 01/06/18 16:32 89 01/06/18 16:00 50 01/06/18 16:00 98.3 89 16 154/80 100 Mechanical Ventilator 50 98.3 01/06/18 14:49 97 16 50 01/06/18 12:58 95 17 50 01/06/18 12:00 50 01/06/18 12:00 97.4 94 16 144/82 95 Mechanical Ventilator 50 97.4 01/06/18 12:00 92 Intake and Output 01/06/18 01/07/18 19:00 07:00 Intake Total 775 ml 605 ml Output Total 550 ml 400 ml Balance 225 ml 205 ml IV Total 55 ml Tube Feeding 660 ml 605 ml Other 60 ml Output Urine Total 550 ml 400 ml # Bowel Movements 4 Laboratory Tests Test 01/07/18 04:00 White Blood Count 9.8 K/UL (4.8-10.8) Red Blood Count 3.88 M/UL (4.70-6.10) L Hemoglobin 10.8 G/DL (14.2-18.0) L Hematocrit 32.2 % (42.0-52.0) L Mean Corpuscular Volume 83 FL (80-99) Mean Corpuscular Hemoglobin 27.8 PG (27.0-31.0) Mean Corpuscular Hemoglobin Concent 33.6 G/DL (32.0-36.0) Red Cell Distribution Width 14.3 % (11.6-14.8) Platelet Count 422 K/UL (150-450) Mean Platelet Volume 7.1 FL (6.5-10.1) Neutrophils (%) (Auto) 71.6 % (45.0-75.0) Lymphocytes (%) (Auto) 17.4 % (20.0-45.0) L Monocytes (%) (Auto) 7.2 % (1.0-10.0) Eosinophils (%) (Auto) 3.2 % (0.0-3.0) H Basophils (%) (Auto) 0.7 % (0.0-2.0) Prothrombin Time 10.3 SEC (9.30-11.50) Prothromb Time International Ratio 1.0 (0.9-1.1) Activated Partial Thromboplast Time 31 SEC (23-33) Sodium Level 135 MMOL/L (136-145) L Potassium Level 4.3 MMOL/L (3.5-5.1) Chloride Level 102 MMOL/L (98-107) Carbon Dioxide Level 23 MMOL/L (21-32) Anion Gap 10 mmol/L (5-15) Blood Urea Nitrogen 26 mg/dL (7-18) H Creatinine 1.3 MG/DL (0.55-1.30) Estimat Glomerular Filtration Rate 54.7 mL/min (>60) Glucose Level 132 MG/DL (74-106) H Calcium Level 9.6 MG/DL (8.5-10.1) Phosphorus Level 3.6 MG/DL (2.5-4.9) Magnesium Level 2.2 MG/DL (1.8-2.4) Total Bilirubin 0.2 MG/DL (0.2-1.0) Aspartate Amino Transf (AST/SGOT) 12 U/L (15-37) L Alanine Aminotransferase (ALT/SGPT) 18 U/L (12-78) Alkaline Phosphatase 137 U/L (46-116) H Total Protein 8.6 G/DL (6.4-8.2) H Albumin 2.8 G/DL (3.4-5.0) L Globulin 5.8 g/dL Albumin/Globulin Ratio 0.5 (1.0-2.7) L Height (Feet): 5 Height (Inches): 6.00 Weight (Pounds): 140 General Appearance: no apparent distress Cardiovascular: normal rate Respiratory/Chest: normal breath sounds, no respiratory distress, other - mech vent Abdominal Exam: normal bowel sounds, non tender, soft, GT site - c/d/i Extremities: non-tender Arabella Quesada N.P. Jan 07, 2018 11:09
[2018-01-07 12:00] VITALS: BP 111/68
[2018-01-07] MEDS: cefTRIAXone 1 GM in D5W 55 ML IVPB SCH (13:29)
--- NOTE | 2018-01-07 15:12 | Diagnostic Imaging Report ---
Indication: Dyspnea Technique: XRAY Chest 1v Comparison: 12/31/2017 Findings: Tracheostomy tube in place. Heart size and mediastinal contours are stable. Atelectasis at the right base is likely unchanged allowing for differences in patient rotation. No new focal opacity identified. No pleural effusion or pneumothorax. Osseous structures are stable. Impression: No significant interval change in likely right basilar atelectasis allowing for differences in patient rotation. No new focal consolidation.
[2018-01-07 16:00] VITALS: BP 122/72
--- NOTE | 2018-01-07 16:13 | Infectious Diseases Prog Note ---
Assessment/Plan Assessment/Plan ASSESSMENT: The patient is a 67-year-old male with, -. Leukocytosis, recurrent, resolved suspect 2ry to UTI -repeat u/a 01/01 WBC >100K. nit neg, leuk +3; ucx >100k P stuarti (S Ceftriaxone, Cefepime; R Genta, levo/cirp, bactrim) -CXR 12/31: Right basilar atelectasis. No acute process otherwise -Bcx Neg -CXR: Mild bilateral interstitial edema versus infiltrates. ; sp cx MDR ABC (S Polymixin B, Colistin, Minocyclne) and MDR PsA (S Gentamicin, I Cefepime ) , GGS (colonizers) - Afebrile. - Pyuria/bacteriuria- likely UTI -u/a WBC 5-10, nit +, leuk +3; ucx>100K P, stuarti (S Ceftriaxone) -History of upper GI bleed. - History of chronic anemia status post PEG and bedbound. - Chronic respiratory failure. -. Status post trach and PEG. -. Functional quadriplegia. -. Encephalopathy. -. CAD. -. CHF. -. Hypothyroidism. -. Diabetes. -. Bipolar disorder/schizophrenia. -VRE, MRSA colonized PLAN: -Continue IV Ceftriaxone abx d# for Providencia stuarti UTI; upon discharge can be transition to PO Cefdinir -will not treat MDR ABC and MDR PsA in sputum as they are colonizers -01/03 SP Zosyn #4 -noted started on Linezolid #2 per GI due to concern for GT site cellulitis- patient has been already discharged -. Monitor CBC/BMP, temperatures. -. Monitor cultures (blood ). -Cdiff if diarrhea -. Management of anemia as per rest of the team. -. We will monitor the patient's clinical course and laboratories and based on those, we will do further recommendations. Subjective Allergies: Coded Allergies: NO KNOWN DRUG ALLERGIES (Verified Allergy, Unknown, 09/11/16) Subjective afebrile mild leukocytosis bcx NTD Objective Vital Signs Last 24 Hour Vital Signs Date Time Temp Pulse Resp B/P (MAP) Pulse Ox O2 Delivery O2 Flow Rate FiO2 01/07/18 15:18 86 16 40 01/07/18 12:53 88 16 40 01/07/18 12:00 91 4/30/18 12:00 98.1 87 18 111/68 99 Mechanical Ventilator 50 98.1 01/07/18 12:00 50 01/07/18 10:42 86 16 50 01/07/18 08:44 82 23 50 01/07/18 08:00 50 01/07/18 08:00 88 01/07/18 08:00 97.7 93 19 105/68 95 Mechanical Ventilator 50 97.7 01/07/18 07:14 84 21 50 01/07/18 04:51 85 16 50 01/07/18 04:00 86 01/07/18 04:00 97.5 71 18 109/64 99 Mechanical Ventilator 50 97.5 01/07/18 04:00 50 01/07/18 03:38 87 16 50 01/07/18 00:58 89 16 50 01/07/18 00:00 97.0 84 18 110/55 99 Mechanical Ventilator 50 97.0 01/07/18 00:00 86 01/07/18 00:00 50 01/06/18 23:30 86 16 50 01/06/18 21:08 87 20 50 01/06/18 20:00 97.0 92 18 100/60 100 Mechanical Ventilator 50 97.0 01/06/18 20:00 86 01/06/18 20:00 50 01/06/18 18:53 97 20 50 01/06/18 16:55 94 20 50 01/06/18 16:32 89 Height (Feet): 5 Height (Inches): 6.00 Weight (Pounds): 140 Objective not done as patient discharged Laboratory Tests Test 01/07/18 04:00 White Blood Count 9.8 K/UL (4.8-10.8) Red Blood Count 3.88 M/UL (4.70-6.10) L Hemoglobin 10.8 G/DL (14.2-18.0) L Hematocrit 32.2 % (42.0-52.0) L Mean Corpuscular Volume 83 FL (80-99) Mean Corpuscular Hemoglobin 27.8 PG (27.0-31.0) Mean Corpuscular Hemoglobin Concent 33.6 G/DL (32.0-36.0) Red Cell Distribution Width 14.3 % (11.6-14.8) Platelet Count 422 K/UL (150-450) Mean Platelet Volume 7.1 FL (6.5-10.1) Neutrophils (%) (Auto) 71.6 % (45.0-75.0) Lymphocytes (%) (Auto) 17.4 % (20.0-45.0) L Monocytes (%) (Auto) 7.2 % (1.0-10.0) Eosinophils (%) (Auto) 3.2 % (0.0-3.0) H Basophils (%) (Auto) 0.7 % (0.0-2.0) Prothrombin Time 10.3 SEC (9.30-11.50) Prothromb Time International Ratio 1.0 (0.9-1.1) Activated Partial Thromboplast Time 31 SEC (23-33) Sodium Level 135 MMOL/L (136-145) L Potassium Level 4.3 MMOL/L (3.5-5.1) Chloride Level 102 MMOL/L (98-107) Carbon Dioxide Level 23 MMOL/L (21-32) Anion Gap 10 mmol/L (5-15) Blood Urea Nitrogen 26 mg/dL (7-18) H Creatinine 1.3 MG/DL (0.55-1.30) Estimat Glomerular Filtration Rate 54.7 mL/min (>60) Glucose Level 132 MG/DL (74-106) H Calcium Level 9.6 MG/DL (8.5-10.1) Phosphorus Level 3.6 MG/DL (2.5-4.9) Magnesium Level 2.2 MG/DL (1.8-2.4) Total Bilirubin 0.2 MG/DL (0.2-1.0) Aspartate Amino Transf (AST/SGOT) 12 U/L (15-37) L Alanine Aminotransferase (ALT/SGPT) 18 U/L (12-78) Alkaline Phosphatase 137 U/L (46-116) H Total Protein 8.6 G/DL (6.4-8.2) H Albumin 2.8 G/DL (3.4-5.0) L Globulin 5.8 g/dL Albumin/Globulin Ratio 0.5 (1.0-2.7) L Current Medications Medications (Trade) Dose Ordered Sig/Wanda Route PRN Reason Start Time Stop Time Status Last Admin Dose Admin Acetaminophen (Tylenol) 650 mg Q4H PRN GT FEVER 01/05/18 09:00 02/04/18 08:59 Ceftriaxone Sodium 1 gm/ Dextrose 55 ml @ 110 mls/hr Q24H IVPB 01/03/18 14:30 01/10/18 14:29 01/07/18 13:29 Dextrose (Dextrose 50%) 25 ml STAT PRN IV hypoglycemia 01/01/18 14:30 01/31/18 14:29 Dextrose (Dextrose 50%) 50 ml STAT PRN IV Hypoglycemia 01/01/18 14:30 01/27/18 21:59 Docusate Sodium (Colace) 100 mg TWICE A DAY NG 01/05/18 09:00 02/04/18 08:59 01/05/18 09:13 Levothyroxine Sodium (Synthroid) 50 mcg DAILY@0630 GT 12/30/17 06:30 01/29/18 06:29 01/07/18 06:08 Linezolid (Zyvox) 600 mg EVERY 12 HOURS GT 01/06/18 21:00 01/11/18 20:59 01/07/18 08:53 Ondansetron HCl (Zofran) 4 mg Q6H PRN IVP Nausea & Vomiting 12/28/17 22:00 01/27/18 21:59 Polyethylene Glycol (Miralax) 17 gm DAILYPRN PRN ORAL Constipation 12/28/17 22:00 01/27/18 21:59 01/04/18 20:22 Sucralfate (Carafate) 1 gm FOUR TIMES A DAY GT 12/29/17 09:00 01/28/18 08:59 01/07/18 13:29 Lisy Lai M.D. Jan 07, 2018 16:13
[2018-01-07] MEDS ORDERED: NS 275ml ONE (16:59)
[2018-01-07] MEDS ORDERED: Tubing IV Secondary IV ONE (16:59)
--- NOTE | 2018-01-09 10:36 | Discharge Summary ---
Discharge Summary Discharge Summary Discharge Summary DATE OF ADMISSION: 12/28/2017 DATE OF DISCHARGE: 01/07/2018 REASON FOR ADMISSION: 67 years old male with past medical history significant for ventilator- dependent respiratory failure, status post tracheostomy , dysphagia, G-tube, cerebrovascular disease with CVA, Alzheimer dementia, encephalopathy, history of GI bleeding, esophagitis, hypothyroidism, presented to emergency department from the [facility] facility due to low hemoglobin. Patient with a known history of GI bleeding. No reports of blood in stool or active vomiting. No signs of respiratory distress. Upon evaluation, hemoglobin 9.1 and hematocrit 28.5 ; WBC 11.1. Urinalysis revealed moderate bacteria ,+3 leukocyte esterase and pyuria. Troponin was negative. EKG revealed normal sinus rhythm, no acute ischemic changes. BUN 35 , creatinine 1.1. Electrolytes stable. Patient was admitted with diagnosis of anemia, possible sepsis, urinary tract infection, respiratory failure. CONSULTANTS: ID specialist Dr. Daniels GI specialist Dr. Wilson [facility] COURSE: Patient admitted to direct observational unit. GI and ID consults were requested. GI closely followed. Anemia workup was consistent with anemia of iron deficiency. Hemoglobin and hematocrit were closely monitored wit6h goal to keep hemoglobin above 8. Patient was transfused for hemoglobin 7.6 and hematocrit 23.0 with 1 unit of packed red blood cells. Prior to discharge, hemoglobin 10.8 and hematocrit 32.2. Bowel regimen instituted. Patient was started on twice a day proton pump inhibitor and Carafate. G-tube feeding was initially on hold with the IV fluids infusing. Subsequently since no active bleeding was noted , G-tube feeding was slowly resumed with strict aspiration/ reflux precautions. Patient was able to tolerate tube feeding. Conservator declined to sign the consent for endoscopy unless a life-threatening procedure. Bowel regimen instituted. Renal parameters and electrolytes were closely monitored. Electrolytes were corrected as needed. Nephrotoxics were avoided. Prior to discharge BUN and down to 26 from initial 35. Infectious disease specialist closely followed. Chest x-ray revealed no acute cardiopulmonary pathology. Urine culture showed Providencia . Patient was on the IV antibiotic and upon transfer to facility was changed to oral antibiotics to complete the course as recommended by ID specialist. Blood culture were negative. Sputum culture was positive for Acinetobacter MDR , pseudomonas MDR and Strep Group G. Per ID specialist, sputum culture was colonized since chest x-ray revealed no evidence of pneumonia. Home medications were resumed, including levothyroxine. Nutritional recommendations implemented in plan of care. Patient remained stable. No signs of respiratory distress on current ventilator settings. Patient was able to tolerate tube feeding. No evidence of bleeding. Leukocytosis resolved. No fevers. Patient was stable for transfer back to [facility] facility for continuation of care. FINAL DIAGNOSES: Anemia requiring blood transfusion Iron deficiency Urinary tract infection with Providencia Respiratory failure( ventilator dependent, with tracheostomy) History of upper GI bleeding Esophagitis Prerenal azotemia( likely secondary to dehydration), resolved Leukocytosis ( due to UTI)-resolved Functional quadriplegia Encephalopathy Alzheimer dementia Severe protein calorie malnutrition Hypothyroidism Bipolar disorder/schizophrenia DISCHARGE MEDICATIONS: See Medication Reconciliation list. DISCHARGE INSTRUCTIONS: My discharge instruction to facility patient was discharged to [facility] follow-up with a medical doctor and safety leader at the facility. I have been assigned to dictate discharge summary for this account. I was not involved in the patient's management. Amina Garcia NP ([place]) January 09, 2018 10:36
--- NOTE | 2018-01-09 16:48 | Cardiology Report ---
APPROVED REPORT EKG Measurement Heart [id number] Normal sinus rhythm Rightward axis Borderline ECG
== END 2018-01-07 17:00 | DRG 870 ==
LOC: EDBD 18:06 → EMR 18:42 → 2W 18:47 → EDBEDREQ 19:07 → 2W 21:31
PROC: 5A1955Z Respiratory Ventilation, Greater than 96 Consecutive Hours (ICD-10-PCS; principal; 2017-12-28)
DX: A41.9 Sepsis, unspecified organism (principal); J96.20 Acute and chronic respiratory failure, unspecified whether with hypoxia or hypercapnia; R53.2 Functional quadriplegia; G93.40 Encephalopathy, unspecified; E43 Unspecified severe protein-calorie malnutrition; N39.0 Urinary tract infection, site not specified; Z99.11 Dependence on respirator [ventilator] status; F29 Unspecified psychosis not due to a substance or known physiological condition; G30.9 Alzheimer's disease, unspecified; F02.80 Dementia in other diseases classified elsewhere, unspecified severity, without behavioral disturbance, psychotic disturbance, mood disturbance, and anxiety; D50.9 Iron deficiency anemia, unspecified; Z93.0 Tracheostomy status; Z93.1 Gastrostomy status; I25.10 Atherosclerotic heart disease of native coronary artery without angina pectoris; E03.9 Hypothyroidism, unspecified; E11.9 Type 2 diabetes mellitus without complications; R13.10 Dysphagia, unspecified; K20.9 Esophagitis, unspecified; K56.41 Fecal impaction; Z68.22 Body mass index [BMI] 22.0-22.9, adult; F31.9 Bipolar disorder, unspecified; F20.9 Schizophrenia, unspecified; E86.0 Dehydration
CPT/HCPCS: 36415; 71045; 74018; 80053; 80069; 81003; 82270; 82728; 83540; 83550; 83690; 83735; 83880; 84100; 84484; 85007; 85025; 85610; 85730; 86850; 86900; 86901; 86920; 87040; 87070; 87081; 87086; 87181; 87205; 93005; 93970; 94002; 94003; 99285

== ENCOUNTER 2018-03-25 22:22 | Inpatient (IN) | payer MEDICARE ==
[~2018-03-25] VITALS: Ht 185.4 cm; Wt 61.2 kg
[2018-03-25] MEDS ORDERED: Cefepime HCl 1 GM in NS 55 ML IV STA (22:36)
[2018-03-25] MEDS ORDERED: Vancomycin 1 GM in NS 275 ML IV ONE (22:45)
[2018-03-25] MEDS ORDERED: Pantoprazole Inj IVP ONE (22:45)
[2018-03-25 23:34] LABS: HEMOGLOBIN 11.6 G/DL (14.2-18.0); MEAN CORPUSCULAR VOLUME 82 FL (80-99); PLATELET COUNT 409 K/UL (150-450); RED BLOOD COUNT 4.28 M/UL (4.70-6.10); RED CELL DISTRIBUTION WIDTH 14.5 % (11.6-14.8)
[2018-03-25 23:35] LABS: WHITE BLOOD COUNT 27.9 K/UL (4.8-10.8)
[2018-03-25 23:48] LABS: ANION GAP 12 mmol/L (5-15); BLOOD UREA NITROGEN 30 mg/dL (7-18); CALCIUM 10.4 MG/DL (8.5-10.1); CARBON DIOXIDE 22 MMOL/L (21-32); CHLORIDE 99 MMOL/L (98-107); CREATININE 1.3 MG/DL (0.55-1.30); SODIUM 133 MMOL/L (136-145)
[2018-03-26 00:02] LABS: ALANINE AMINOTRANSFERASE 33 U/L (12-78); ALBUMIN 3.7 G/DL (3.4-5.0); ALBUMIN/GLOBULIN RATIO 0.6 (1.0-2.7); ALKALINE PHOSPHATASE 207 U/L (46-116); ASPARTATE AMINO TRANSFERASE 18 U/L (15-37); BILIRUBIN,TOTAL 0.5 MG/DL (0.2-1.0); CKMB 1.2 NG/ML (0.0-3.6); CREATINE KINASE 40 U/L (26-308)
[2018-03-26 00:38] VITALS: BP 176/78
[2018-03-26] MEDS ORDERED: FERROUS SU300 MG/52 GT (01:35)
[2018-03-26 02:38] VITALS: BP 144/93
[2018-03-26 03:53] LABS: BILIRUBIN, URINE NEGATIVE (NEGATIVE); COLOR,URINE YELLOW; GLUCOSE, URINE (UA) NEGATIVE (NEGATIVE); KETONES,URINE NEGATIVE (NEGATIVE); LEUKOCYTE ESTERASE ,URINE 3+ (NEGATIVE); NITRITE,URINE NEGATIVE (NEGATIVE); PH,URINE 8 (4.5-8.0); PROTEIN,URINE 2+ (NEGATIVE); UROBILINOGEN,URINE NORMAL MG/DL (0.0-1.0)
[2018-03-26 04:19] LABS: APPEARANCE,URINE CLOUDY
--- NOTE | 2018-03-26 04:32 | Emergency Room Report ---
History of Present Illness General Chief Complaint: Gastrointestinal Bleed Source: EMS Present Illness HPI Patient sent in for vomiting coffee grounds. He's vent dependent and has a G-tube. There is some question of a possible aspiration. He does have coffee-ground emesis in the tracheostomy tube. The patient is unable to give any history at this time and is in a vegetative state. D/C 01/07 with these discharge dx: Anemia requiring blood transfusion Iron deficiency Urinary tract infection with Providencia Respiratory failure( ventilator dependent, with tracheostomy) History of upper GI bleeding Esophagitis Prerenal azotemia( likely secondary to dehydration), resolved Leukocytosis ( due to UTI)-resolved Functional quadriplegia Encephalopathy Alzheimer dementia Severe protein calorie malnutrition Hypothyroidism Bipolar disorder/schizophrenia Allergies: Coded Allergies: NO KNOWN DRUG ALLERGIES (Verified Allergy, Unknown, 09/11/16) Patient History Limited by: medical condition Past Medical History: see triage record, old chart reviewed Past Surgical History: other - trach and G tube Social History Narrative SNF Reviewed Nursing Documentation: PMH: Agreed; PSxH: Agreed Nursing Documentation-PMH Past Medical History Deferred: Pt Cognitively Impaired Hx Cardiac Problems: Yes - trach and vent, CVD, anemia, atherosclerotic heart disease, angina Hx Hypertension: Yes - hypothyroidism Hx Asthma: Yes Hx COPD: No Hx Diabetes: Yes - DM II Hx Cancer: No Hx Gastrointestinal Problems: Yes - Gastrostomy, GERD, chonric peptic ulcer Hx Dialysis: Yes - pre renal azotemia, uti Hx Neurological Problems: Yes - dementia Hx Cerebrovascular Accident: Yes Hx Transient Ischemic Attacks: Yes Hx Dementia: Yes Hx Alzheimer's Disease: Yes Hx Parkinson's Disease: Yes Hx Encephalitis: Yes Hx Seizures: Yes Hx Epilepsy: Yes Hx Paralysis: Yes - HEMIPLEGIA Hx Concentration Difficulty: Yes Hx Speech Problem: Yes Hx Aphasia: Yes Hx Weakness: Yes Hx Fatigue: Yes Hx Neurologic Surgery: No Hx Brain Shunt: No Review of Systems All Other Systems: limited Physical Exam Vital Signs Date Time Temp Pulse Resp B/P (MAP) Pulse Ox O2 Delivery O2 Flow Rate FiO2 03/25/18 22:23 97.8 90 16 146/83 98 Mechanical Ventilator 40 97.9 Sp02 EP Interpretation: reviewed, normal General Appearance: no apparent distress, thin, other - vegetative state, Chronically Ill Head: normocephalic Eyes: bilateral eye normal inspection, bilateral eye PERRL ENT: moist mucus membranes Neck: tracheotomy - with coffee grounds in trach tube Respiratory: lungs clear, normal breath sounds Cardiovascular #1: regular rate, rhythm Cardiovascular #2: 2+ radial (R) Gastrointestinal: other - hypospadeous, scaphoid Genitourinary: other Musculoskeletal: back normal, gait/station normal, other - contractures all 4 Neurologic: other - vegetative state and unresponsive with eyes open Psychiatric: other - eyes open, not responding Skin: warm/dry Procedures Additional Procedure Procedure Narrative Victor place by ERMD. Medical Decision Making Diagnostic Impression: Primary Impression: Upper GI bleed Additional Impressions: Sepsis Qualified Codes: A41.9 - Sepsis, unspecified organism Aspiration into airway Qualified Codes: T17.908A - Unspecified foreign body in respiratory tract, part unspecified causing other injury, initial encounter UTI (urinary tract infection) Qualified Codes: N39.0 - Urinary tract infection, site not specified ER Course Patient presents to the emergency department with coffee-ground emesis. In addition to that there is coffee-ground material coming out from the tracheostomy. This suggests that the patient has aspirated. This is a very complicated patient as he is unable to give us a history and has multiple comorbidities and possibly occult problems. Differential includes sepsis, pneumonia, urinary tract infection, upper gastrointestinal bleed, gastritis, ulcer was others. Evaluation will be with EKG, chest x-ray and labs including lactate and blood cultures. The patient be treated with IV hydration and broad- spectrum antibiotics. Patient is placed on a ventilator and continued on previous ventilator settings blood gas may be ordered if he's hypoxemic or appears in any distress. The patient is also treated with Protonix. EKG was sinus rhythm with PACs. Chest x-ray no evidence of infiltrates tracheostomy is present. White count is extremely elevated 27,000. lactic acid is normal. Mild renal sufficiency. As the chest x-ray doesn't show evidence of significant infection important to get a urine sample. Because of the hypospadias the nurse was uncomfortable about starting a Victor. I inserted a Victor. Clear urine was obtained. Urinalysis reveals too numerous to count white blood cells. Patient is admitted to stepdown unit because of the ventilator and severe sepsis. Laboratory Tests Test 03/25/18 23:00 03/26/18 04:00 White Blood Count 27.9 K/UL (4.8-10.8) *H Red Blood Count 4.28 M/UL (4.70-6.10) L Hemoglobin 11.6 G/DL (14.2-18.0) L Hematocrit 35.0 % (42.0-52.0) L Mean Corpuscular Volume 82 FL (80-99) Mean Corpuscular Hemoglobin 27.0 PG (27.0-31.0) Mean Corpuscular Hemoglobin Concent 33.1 G/DL (32.0-36.0) Red Cell Distribution Width 14.5 % (11.6-14.8) Platelet Count 409 K/UL (150-450) Mean Platelet Volume 7.7 FL (6.5-10.1) Neutrophils (%) (Auto) % (45.0-75.0) Lymphocytes (%) (Auto) % (20.0-45.0) Monocytes (%) (Auto) % (1.0-10.0) Eosinophils (%) (Auto) % (0.0-3.0) Basophils (%) (Auto) % (0.0-2.0) Neutrophils % (Manual) Pending Lymphocytes % (Manual) Pending Platelet Estimate Pending Platelet Morphology Pending Prothrombin Time 10.5 SEC (9.30-11.50) Prothrombin Time INR 1.0 (0.9-1.1) PTT 30 SEC (23-33) Sodium Level 133 MMOL/L (136-145) L Potassium Level 4.0 MMOL/L (3.5-5.1) Chloride Level 99 MMOL/L (98-107) Carbon Dioxide Level 22 MMOL/L (21-32) Anion Gap 12 mmol/L (5-15) Blood Urea Nitrogen 30 mg/dL (7-18) H Creatinine 1.3 MG/DL (0.55-1.30) Estimate Glomerular Filtration Rate 54.7 mL/min (>60) Glucose Level 153 MG/DL (74-106) H Lactic Acid Level 1.80 mmol/L (0.4-2.0) Calcium Level 10.4 MG/DL (8.5-10.1) H Total Bilirubin 0.5 MG/DL (0.2-1.0) Aspartate Amino Transferase (AST) 18 U/L (15-37) Alanine Aminotransferase (ALT) 33 U/L (12-78) Alkaline Phosphatase 207 U/L (46-116) H Total Creatine Kinase 40 U/L (26-308) Creatine Kinase MB 1.2 NG/ML (0.0-3.6) Creatine Kinase MB Relative Index 3.0 Troponin I 0.000 ng/mL (0.000-0.056) Pro-B-Type Natriuretic Peptide 729 pg/mL (0-125) H Total Protein 9.8 G/DL (6.4-8.2) H Albumin 3.7 G/DL (3.4-5.0) Globulin 6.1 g/dL Albumin/Globulin Ratio 0.6 (1.0-2.7) L Lipase 214 U/L (73-393) Urine Color Yellow Urine Appearance Cloudy Urine pH 8 (4.5-8.0) Urine Specific Waka 1.010 (1.005-1.035) Urine Protein 2+ (NEGATIVE) H Urine Glucose (UA) Negative (NEGATIVE) Urine Ketones Negative (NEGATIVE) Urine Occult Blood 4+ (NEGATIVE) H Urine Nitrite Negative (NEGATIVE) Urine Bilirubin Negative (NEGATIVE) Urine Urobilinogen Normal MG/DL (0.0-1.0) Urine Leukocyte Esterase 3+ (NEGATIVE) H Urine RBC 10-15 /HPF (0 - 0) H Urine WBC Tntc /HPF (0 - 0) H Urine Squamous Epithelial Cells None /LPF (NONE/OCC) Urine Bacteria Many /HPF (NONE) H EKG Diagnostic Results Rate: normal Rhythm: NSR ST Segments: no acute changes Rhythm Strip Diag. Results EP Interpretation: yes Rhythm: NSR, no PVC's, other - PACs Chest X-Ray Diagnostic Results Chest X-Ray Diagnostic Results : Chest X-Ray Ordered: Yes # of Views/Limited/Complete: 1 View Indication: Other Interpretation: no consolidation, no effusion, no pneumothorax, other - Tracheostomy Status: improved Disposition: ADMITTED INPATIENT Condition: Serious Referrals: Gato Viveros DO (PCP) John Hunter M.D. Mar 26, 2018 04:31
[2018-03-26 04:40] VITALS: BP 142/75
[2018-03-26 06:18] VITALS: BP 136/73
[2018-03-26] MEDS ORDERED: Albuterol/Ipratropium 3ml neb HHN PRN (07:30)
[2018-03-26] MEDS ORDERED: Morphine Sulfate 4mg/ml Inj IVP PRN (07:30)
[2018-03-26] MEDS ORDERED: LORazepam Inj 2mg/ml 1ml IV PRN (07:30)
[2018-03-26] MEDS ORDERED: Miralax 17gm pkt ORAL PRN (07:30)
[2018-03-26] MEDS: Zinc Sulfate 220mg cap ORAL SCH (09:00)
[2018-03-26] MEDS: Heparin 5000 units/ml inj SUBQ SCH ×2 (09:00→21:00)
--- NOTE | 2018-03-26 10:09 | Consultation ---
History of Present Illness General Date patient seen: Mar 26, 2018 Chief Complaint: Gastrointestinal Bleed Present Illness HPI 67-year-old male with hx of chronic respiratory failure, trach/vent/peg, assisted resident brought in by paramedics with CC of coffee ground vomiting. Patient has history of GI bleed in the past. Patient is unable to provide any additional history at this time. Patient presenting with no signs of distress. No other aggravating relieving factors. Denies any other associated symptoms. Pt looks cachectic and chronically ill. He was found to have leukocytosis and azotemia. He is admitted to [facility] for further management. Allergies: Coded Allergies: NO KNOWN DRUG ALLERGIES (Verified Allergy, Unknown, 09/11/16) Medication History Scheduled Ascorbic Acid* (Vitamin C*), 500 MG GT DAILY, (Reported) Cran/Vitc/Mannose/Inulin/Brom (Uti-Stat Liquid), 3,875 MG GT DAILY, (Reported) Docusate Sodium* (Docusate Sodium*), 100 MG GT DAILY, (Reported) Famotidine (Famotidine), 20 MG GT DAILY, (Reported) Ferrous Sulfate (Ferrous Sulfate), 330 MG GT DAILY, (Reported) Folic Acid* (Folic Acid*), 1 MG GT DAILY, (Reported) Levothyroxine Sodium* (Levothyroxine Sodium*), 50 MCG GT DAILY, (Reported) Magnesium Hydroxide* (Milk Of Magnesia*), 30 ML GT HS, (Reported) Multivitamin Liquid* (Multi-Delyn*), 15 ML GT DAILY, (Reported) Sucralfate* (Carafate*), 1 GM GT FOUR TIMES A DAY, (Reported) Zinc Sulfate (Zinc Sulfate*), 220 MG ORAL DAILY, (Reported) Scheduled PRN Acetaminophen (Acetaminophen), 640 MG GT Q4HR PRN for Prn Headache/Temp > 101, ( Reported) Bisacodyl (Dulcolax), 10 MG RC NEEDED PRN for IF MOM INEFFECTIVE, (Reported) Ipratropium/Albuterol Sulfate (DuoNeb 0.5-3(2.5)mg/3ml), 3 ML HHN Q4H PRN for Shortness of Breath Na Phos,M-B/Na Phos,Di-Ba* (Fleet Enema*), 133 ML RECTAL QOD PRN for IF DUCOLAX INEFFETIVE, (Reported) Patient History Healthcare decision maker Resuscitation status Full Code Advanced Directive on File Past Medical/Surgical History Past Medical/Surgical History: (1) penitentiary resident (2) Psychosis (3) Debility (4) Dementia (5) Severe protein-calorie malnutrition Review of Systems All Other Systems: negative except mentioned in HPI Physical Exam General Appearance: cachetic Lines, tubes and drains: peripheral Neck: normal alignment Respiratory/Chest: chest wall non-tender, lungs clear Cardiovascular/Chest: normal peripheral pulses, normal rate Abdomen: normal bowel sounds, non tender Genitourinary/Rectal: normal genital exam, heme negative stool, normal prostate exam Extremities: non-tender Skin Exam: normal pigmentation 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, motor weakness Last 24 Hour Vital Signs Date Time Temp Pulse Resp B/P (MAP) Pulse Ox O2 Delivery O2 Flow Rate FiO2 03/26/18 09:17 85 16 40 03/26/18 06:50 97.1 88 20 136/73 100 Trach Collar 40 97.1 03/26/18 06:50 77 19 40 03/26/18 06:18 88 20 136/73 100 Trach Collar 40 03/26/18 05:14 95 22 40 03/26/18 04:40 87 21 142/75 100 Trach Collar 40 03/26/18 03:28 94 19 40 03/26/18 02:38 97.1 100 17 144/93 100 Trach Collar 40 97.1 03/26/18 00:38 98.8 96 21 176/78 100 Trach Collar 40 98.8 03/26/18 00:34 92 21 40 03/25/18 23:12 87 17 40 03/25/18 23:09 87 17 Mechanical Ventilator 40 03/25/18 22:30 40 03/25/18 22:23 97.8 90 16 146/83 98 Mechanical Ventilator 40 97.9 Intake and Output 03/25/18 03/26/18 19:00 07:00 Intake Total 1480 ml Output Total 675 ml Balance 805 ml Intake IV Total 1480 ml Output Urine Total 675 ml Laboratory Tests Test 03/25/18 23:00 03/26/18 04:00 White Blood Count 27.9 K/UL (4.8-10.8) *H Red Blood Count 4.28 M/UL (4.70-6.10) L Hemoglobin 11.6 G/DL (14.2-18.0) L Hematocrit 35.0 % (42.0-52.0) L Mean Corpuscular Volume 82 FL (80-99) Mean Corpuscular Hemoglobin 27.0 PG (27.0-31.0) Mean Corpuscular Hemoglobin Concent 33.1 G/DL (32.0-36.0) Red Cell Distribution Width 14.5 % (11.6-14.8) Platelet Count 409 K/UL (150-450) Mean Platelet Volume 7.7 FL (6.5-10.1) Neutrophils (%) (Auto) % (45.0-75.0) Lymphocytes (%) (Auto) % (20.0-45.0) Monocytes (%) (Auto) % (1.0-10.0) Eosinophils (%) (Auto) % (0.0-3.0) Basophils (%) (Auto) % (0.0-2.0) Differential Total Cells Counted 100 Neutrophils % (Manual) 84 % (45-75) H Lymphocytes % (Manual) 11 % (20-45) L Monocytes % (Manual) 4 % (1-10) Eosinophils % (Manual) 0 % (0-3) Basophils % (Manual) 0 % (0-2) Band Neutrophils 1 % (0-8) Platelet Estimate Adequate Platelet Morphology Normal Prothrombin Time 10.5 SEC (9.30-11.50) Prothromb Time International Ratio 1.0 (0.9-1.1) Activated Partial Thromboplast Time 30 SEC (23-33) Sodium Level 133 MMOL/L (136-145) L Potassium Level 4.0 MMOL/L (3.5-5.1) Chloride Level 99 MMOL/L (98-107) Carbon Dioxide Level 22 MMOL/L (21-32) Anion Gap 12 mmol/L (5-15) Blood Urea Nitrogen 30 mg/dL (7-18) H Creatinine 1.3 MG/DL (0.55-1.30) Estimat Glomerular Filtration Rate 54.7 mL/min (>60) Glucose Level 153 MG/DL (74-106) H Lactic Acid Level 1.80 mmol/L (0.4-2.0) Calcium Level 10.4 MG/DL (8.5-10.1) H Total Bilirubin 0.5 MG/DL (0.2-1.0) Aspartate Amino Transf (AST/SGOT) 18 U/L (15-37) Alanine Aminotransferase (ALT/SGPT) 33 U/L (12-78) Alkaline Phosphatase 207 U/L (46-116) H Total Creatine Kinase 40 U/L (26-308) Creatine Kinase MB 1.2 NG/ML (0.0-3.6) Creatine Kinase MB Relative Index 3.0 Troponin I 0.000 ng/mL (0.000-0.056) Pro-B-Type Natriuretic Peptide 729 pg/mL (0-125) H Total Protein 9.8 G/DL (6.4-8.2) H Albumin 3.7 G/DL (3.4-5.0) Globulin 6.1 g/dL Albumin/Globulin Ratio 0.6 (1.0-2.7) L Lipase 214 U/L (73-393) Urine Color Yellow Urine Appearance Cloudy Urine pH 8 (4.5-8.0) Urine Specific [place] 1.010 (1.005-1.035) Urine Protein 2+ (NEGATIVE) H Urine Glucose (UA) Negative (NEGATIVE) Urine Ketones Negative (NEGATIVE) Urine Occult Blood 4+ (NEGATIVE) H Urine Nitrite Negative (NEGATIVE) Urine Bilirubin Negative (NEGATIVE) Urine Urobilinogen Normal MG/DL (0.0-1.0) Urine Leukocyte Esterase 3+ (NEGATIVE) H Urine RBC 10-15 /HPF (0 - 0) H Urine WBC Tntc /HPF (0 - 0) H Urine Squamous Epithelial Cells None /LPF (NONE/OCC) Urine Bacteria Many /HPF (NONE) H Height (Feet): 6 Height (Inches): 1.00 Weight (Pounds): 135 Medications Current Medications Medications (Trade) Dose Ordered Sig/Wanda Route PRN Reason Start Time Stop Time Status Last Admin Dose Admin Acetaminophen (Tylenol) 650 mg Q4H PRN ORAL FEVER 03/26/18 07:30 04/25/18 07:29 Albuterol/ Ipratropium (Albuterol/ Ipratropium) 3 ml Q4H PRN HHN Shortness of Breath 03/26/18 07:30 03/31/18 07:29 Dextrose (Dextrose 50%) 25 ml STAT PRN IV Hypoglycemia 03/26/18 07:30 04/25/18 07:29 Dextrose (Dextrose 50%) 50 ml STAT PRN IV Hypoglycemia 03/26/18 08:30 04/25/18 08:29 Heparin Sodium (Porcine) (Heparin 5000 units/ml) 5,000 units EVERY 12 HOURS SUBQ 03/26/18 09:00 04/25/18 08:59 Levothyroxine Sodium (Synthroid) 50 mcg DAILY GT 03/26/18 09:00 04/25/18 08:59 Lorazepam (Ativan 2mg/ml 1ml) 2 mg Q2H PRN IV For Anxiety 03/26/18 07:30 04/02/18 07:29 Morphine Sulfate (Morphine Sulfate) 4 mg Q4H PRN IVP Severe Pain (Pain Scale 7-10) 03/26/18 07:30 04/02/18 07:29 Ondansetron HCl (Zofran) 4 mg Q6H PRN IVP Nausea & Vomiting 03/26/18 07:30 04/25/18 07:29 Pantoprazole (Protonix) 40 mg DAILY IV 03/26/18 09:00 04/25/18 08:59 Polyethylene Glycol (Miralax) 17 gm DAILYPRN PRN ORAL Constipation 03/26/18 07:30 04/25/18 07:29 Sodium Chloride 1,000 ml @ 300 mls/hr Q3H20M IV 03/25/18 22:45 04/24/18 22:44 03/26/18 01:07 Sodium Chloride 1,000 ml @ 300 mls/hr Q3H20M IV 03/25/18 22:45 04/24/18 22:44 03/26/18 02:04 Sucralfate (Carafate) 1 gm FOUR TIMES A DAY GT 03/26/18 09:00 04/25/18 08:59 Vancomycin HCl (Vanco rx to dose) 1 ea DAILY PRN MISC per rx protocol 03/26/18 08:30 04/25/18 08:29 Vancomycin HCl 500 mg/Dextrose 110 ml @ 110 mls/hr Q12H IVPB 03/26/18 13:00 03/31/18 12:59 Zinc Sulfate (Zinc Sulfate) 220 mg DAILY ORAL 03/26/18 09:00 04/25/18 08:59 Assessment/Plan Problem List: (1) Upper GI bleed ICD Codes: K92.2 - Upper gastrointestinal hemorrhage SNOMED: 29986867 (2) Sepsis ICD Codes: A41.9 - Sepsis, unspecified organism SNOMED: 54748479 Qualifiers: Qualified Codes: A41.9 - Sepsis, unspecified organism (3) Chronic respiratory failure ICD Codes: J96.10 - Chronic respiratory failure, unspecified whether with hypoxia or hypercapnia SNOMED: 57979511 (4) Severe protein-calorie malnutrition ICD Codes: E43 - Unspecified severe protein-calorie malnutrition SNOMED: 031392836 (5) Alzheimer's dementia ICD Codes: G30.9 - Alzheimer's disease, unspecified SNOMED: 01358786 (6) Feeding by G-tube ICD Codes: Z93.1 - Gastrostomy status SNOMED: 556664036, 612662850 (7) Leukocytosis ICD Codes: D72.829 - Elevated white blood cell count, unspecified SNOMED: 332137915 (8) Psychosis ICD Codes: F29 - Psychosis SNOMED: 05939090 (9) Debility ICD Codes: R53.81 - Debility SNOMED: 91094302 Respiratory: monitor respiratory rate, adjust FIO2, CXR Cardiac: continue to monitor HR/BP Renal: F/U I&O, keep IV fluid Infectious Disease: check cultures Gastrointestinal: continue feedings/current rate Endocrine: monitor blood sugar Hematologic: monitor H/H, transfuse if hgb<8.5 Neurologic: keep patient comfortable Affect: PRN ativan Prophylaxis: Protonix Disposition: keep in ICU Notes Reviewed: supervisor salvage Discussed with: nurses, consultants, correctional case manager Huma Keating MD Mar 26, 2018 10:09
--- NOTE | 2018-03-26 10:30 | Diagnostic Imaging Report ---
Indication: Dyspnea Comparison: 01/07/2018 A single view chest radiograph was obtained. Findings: Cardiomediastinal appearance is within normal limits for age. Tracheostomy is noted. Pulmonary vascularity is appropriate. The diaphragmatic contour is smooth and costophrenic angles are sharp. No pleural effusions are identified. The bones are unremarkable. Impression: No acute findings
[2018-03-26] MEDS: Pantoprazole Inj IV SCH (10:37)
[2018-03-26] MEDS: Sucralfate 1gm tab GT SCH ×4 (10:37→23:01)
--- NOTE | 2018-03-26 11:55 | Consultation ---
History of Present Illness General Date patient seen: Mar 26, 2018 Chief Complaint: Gastrointestinal Bleed Present Illness HPI 67 y/o M with hx of chronic respiratory failure, trach/vent/peg, functional quadriplegia, chronic encephalopathy, CAD, CHF, hypothyroidism, DM, UGIB s/p multiple EGDs in the past, hx of severe esophagitis, schizoaffective disease, shelter resident presents to ED on 03/25 with coffee ground emesis. Found to have leukocytosis and azotemia. Of note, patient last admitted here on 12/2017 for anemia and leukocytosis Also admitted on Oct 2017 with coffee ground emesis, leukocytosis and anemia Allergies: Coded Allergies: NO KNOWN DRUG ALLERGIES (Verified Allergy, Unknown, 09/11/16) Medication History Scheduled Ascorbic Acid* (Vitamin C*), 500 MG GT DAILY, (Reported) Cran/Vitc/Mannose/Inulin/Brom (Uti-Stat Liquid), 3,875 MG GT DAILY, (Reported) Docusate Sodium* (Docusate Sodium*), 100 MG GT DAILY, (Reported) Famotidine (Famotidine), 20 MG GT DAILY, (Reported) Ferrous Sulfate (Ferrous Sulfate), 330 MG GT DAILY, (Reported) Folic Acid* (Folic Acid*), 1 MG GT DAILY, (Reported) Levothyroxine Sodium* (Levothyroxine Sodium*), 50 MCG GT DAILY, (Reported) Magnesium Hydroxide* (Milk Of Magnesia*), 30 ML GT HS, (Reported) Multivitamin Liquid* (Multi-Delyn*), 15 ML GT DAILY, (Reported) Sucralfate* (Carafate*), 1 GM GT FOUR TIMES A DAY, (Reported) Zinc Sulfate (Zinc Sulfate*), 220 MG ORAL DAILY, (Reported) Scheduled PRN Acetaminophen (Acetaminophen), 640 MG GT Q4HR PRN for Prn Headache/Temp > 101, ( Reported) Bisacodyl (Dulcolax), 10 MG RC NEEDED PRN for IF MOM INEFFECTIVE, (Reported) Ipratropium/Albuterol Sulfate (DuoNeb 0.5-3(2.5)mg/3ml), 3 ML HHN Q4H PRN for Shortness of Breath Na Phos,M-B/Na Phos,Di-Ba* (Fleet Enema*), 133 ML RECTAL QOD PRN for IF DUCOLAX INEFFETIVE, (Reported) Patient History Healthcare decision maker Resuscitation status Full Code Advanced Directive on File Patient History Narrative Pmhx: as above Shx: reviewed Fhx: non contributory Review of Systems All Other Systems: negative except mentioned in HPI Physical Exam Physical Exam Narrative General Appearance: cachetic Lines, tubes and drains: peripheral Neck: normal alignment Respiratory/Chest: chest wall non-tender, lungs clear Cardiovascular/Chest: normal peripheral pulses, normal rate Abdomen: normal bowel sounds, non tender Genitourinary/Rectal: normal genital exam, heme negative stool, normal prostate exam Extremities: non-tender Skin Exam: normal pigmentation 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, motor weakness Last 24 Hour Vital Signs Date Time Temp Pulse Resp B/P (MAP) Pulse Ox O2 Delivery O2 Flow Rate FiO2 03/26/18 11:11 81 18 40 03/26/18 09:17 85 16 40 03/26/18 06:50 97.1 88 20 136/73 100 Trach Collar 40 97.1 03/26/18 06:50 77 19 40 03/26/18 06:18 88 20 136/73 100 Trach Collar 40 03/26/18 05:14 95 22 40 03/26/18 04:40 87 21 142/75 100 Trach Collar 40 03/26/18 03:28 94 19 40 03/26/18 02:38 97.1 100 17 144/93 100 Trach Collar 40 97.1 03/26/18 00:38 98.8 96 21 176/78 100 Trach Collar 40 98.8 03/26/18 00:34 92 21 40 03/25/18 23:12 87 17 40 03/25/18 23:09 87 17 Mechanical Ventilator 40 03/25/18 22:30 40 03/25/18 22:23 97.8 90 16 146/83 98 Mechanical Ventilator 40 97.9 Intake and Output 03/25/18 03/26/18 19:00 07:00 Intake Total 1480 ml Output Total 675 ml Balance 805 ml Intake IV Total 1480 ml Output Urine Total 675 ml Laboratory Tests Test 03/25/18 23:00 03/26/18 04:00 White Blood Count 27.9 K/UL (4.8-10.8) *H Red Blood Count 4.28 M/UL (4.70-6.10) L Hemoglobin 11.6 G/DL (14.2-18.0) L Hematocrit 35.0 % (42.0-52.0) L Mean Corpuscular Volume 82 FL (80-99) Mean Corpuscular Hemoglobin 27.0 PG (27.0-31.0) Mean Corpuscular Hemoglobin Concent 33.1 G/DL (32.0-36.0) Red Cell Distribution Width 14.5 % (11.6-14.8) Platelet Count 409 K/UL (150-450) Mean Platelet Volume 7.7 FL (6.5-10.1) Neutrophils (%) (Auto) % (45.0-75.0) Lymphocytes (%) (Auto) % (20.0-45.0) Monocytes (%) (Auto) % (1.0-10.0) Eosinophils (%) (Auto) % (0.0-3.0) Basophils (%) (Auto) % (0.0-2.0) Differential Total Cells Counted 100 Neutrophils % (Manual) 84 % (45-75) H Lymphocytes % (Manual) 11 % (20-45) L Monocytes % (Manual) 4 % (1-10) Eosinophils % (Manual) 0 % (0-3) Basophils % (Manual) 0 % (0-2) Band Neutrophils 1 % (0-8) Platelet Estimate Adequate Platelet Morphology Normal Prothrombin Time 10.5 SEC (9.30-11.50) Prothromb Time International Ratio 1.0 (0.9-1.1) Activated Partial Thromboplast Time 30 SEC (23-33) Sodium Level 133 MMOL/L (136-145) L Potassium Level 4.0 MMOL/L (3.5-5.1) Chloride Level 99 MMOL/L (98-107) Carbon Dioxide Level 22 MMOL/L (21-32) Anion Gap 12 mmol/L (5-15) Blood Urea Nitrogen 30 mg/dL (7-18) H Creatinine 1.3 MG/DL (0.55-1.30) Estimat Glomerular Filtration Rate 54.7 mL/min (>60) Glucose Level 153 MG/DL (74-106) H Lactic Acid Level 1.80 mmol/L (0.4-2.0) Calcium Level 10.4 MG/DL (8.5-10.1) H Total Bilirubin 0.5 MG/DL (0.2-1.0) Aspartate Amino Transf (AST/SGOT) 18 U/L (15-37) Alanine Aminotransferase (ALT/SGPT) 33 U/L (12-78) Alkaline Phosphatase 207 U/L (46-116) H Total Creatine Kinase 40 U/L (26-308) Creatine Kinase MB 1.2 NG/ML (0.0-3.6) Creatine Kinase MB Relative Index 3.0 Troponin I 0.000 ng/mL (0.000-0.056) Pro-B-Type Natriuretic Peptide 729 pg/mL (0-125) H Total Protein 9.8 G/DL (6.4-8.2) H Albumin 3.7 G/DL (3.4-5.0) Globulin 6.1 g/dL Albumin/Globulin Ratio 0.6 (1.0-2.7) L Lipase 214 U/L (73-393) Urine Color Yellow Urine Appearance Cloudy Urine pH 8 (4.5-8.0) Urine Specific [place] 1.010 (1.005-1.035) Urine Protein 2+ (NEGATIVE) H Urine Glucose (UA) Negative (NEGATIVE) Urine Ketones Negative (NEGATIVE) Urine Occult Blood 4+ (NEGATIVE) H Urine Nitrite Negative (NEGATIVE) Urine Bilirubin Negative (NEGATIVE) Urine Urobilinogen Normal MG/DL (0.0-1.0) Urine Leukocyte Esterase 3+ (NEGATIVE) H Urine RBC 10-15 /HPF (0 - 0) H Urine WBC Tntc /HPF (0 - 0) H Urine Squamous Epithelial Cells None /LPF (NONE/OCC) Urine Bacteria Many /HPF (NONE) H Height (Feet): 6 Height (Inches): 1.00 Weight (Pounds): 135 Medications Current Medications Medications (Trade) Dose Ordered Sig/Wanda Route PRN Reason Start Time Stop Time Status Last Admin Dose Admin Acetaminophen (Tylenol) 650 mg Q4H PRN ORAL FEVER 03/26/18 07:30 04/25/18 07:29 Albuterol/ Ipratropium (Albuterol/ Ipratropium) 3 ml Q4H PRN HHN Shortness of Breath 03/26/18 07:30 03/31/18 07:29 Dextrose (Dextrose 50%) 25 ml STAT PRN IV Hypoglycemia 03/26/18 07:30 04/25/18 07:29 Dextrose (Dextrose 50%) 50 ml STAT PRN IV Hypoglycemia 03/26/18 08:30 04/25/18 08:29 Heparin Sodium (Porcine) (Heparin 5000 units/ml) 5,000 units EVERY 12 HOURS SUBQ 03/26/18 09:00 04/25/18 08:59 Levothyroxine Sodium (Synthroid) 50 mcg DAILY GT 03/26/18 09:00 04/25/18 08:59 03/26/18 10:37 Lorazepam (Ativan 2mg/ml 1ml) 2 mg Q2H PRN IV For Anxiety 03/26/18 07:30 04/02/18 07:29 Morphine Sulfate (Morphine Sulfate) 4 mg Q4H PRN IVP Severe Pain (Pain Scale 7-10) 03/26/18 07:30 04/02/18 07:29 Ondansetron HCl (Zofran) 4 mg Q6H PRN IVP Nausea & Vomiting 03/26/18 07:30 04/25/18 07:29 Pantoprazole (Protonix) 40 mg DAILY IV 03/26/18 09:00 04/25/18 08:59 03/26/18 10:37 Polyethylene Glycol (Miralax) 17 gm DAILYPRN PRN ORAL Constipation 03/26/18 07:30 04/25/18 07:29 Sodium Chloride 1,000 ml @ 300 mls/hr Q3H20M IV 03/25/18 22:45 04/24/18 22:44 03/26/18 01:07 Sodium Chloride 1,000 ml @ 300 mls/hr Q3H20M IV 03/25/18 22:45 04/24/18 22:44 03/26/18 02:04 Sucralfate (Carafate) 1 gm FOUR TIMES A DAY GT 03/26/18 09:00 04/25/18 08:59 03/26/18 10:37 Vancomycin HCl (Vanco rx to dose) 1 ea DAILY PRN MISC per rx protocol 03/26/18 08:30 04/25/18 08:29 Vancomycin HCl 500 mg/Dextrose 110 ml @ 110 mls/hr Q12H IVPB 03/26/18 13:00 03/31/18 12:59 Zinc Sulfate (Zinc Sulfate) 220 mg DAILY ORAL 03/26/18 09:00 04/25/18 08:59 03/26/18 09:00 Assessment/Plan Assessment/Plan Abx: IV Vanco 03/25- Cefepime x1 03/25 Levo x1 03/25 Assessment: Sepsis -likely 2ry to UTI- r/o bacteremia Leukocytosis (2ry to UTI, GIB also contributing) Recurrent UGIB -History of upper GI bleed. -hx severe esophagitis s/p multiple EGDs REcent UTI, 12/2017, s/p Rx - ucx >100k P stuarti (S Ceftriaxone, Cefepime; R Genta, levo/cipro, bactrim) - History of chronic anemia status post PEG and bedbound. - Chronic respiratory failure. -. Status post trach and PEG. -. Functional quadriplegia. -. Encephalopathy. -. CAD. -. CHF. -. Hypothyroidism. -. Diabetes. -. Bipolar disorder/schizophrenia. -. hx of possible scabies 10/2017 -hx VRE, MRSA colonization Plan: -Continue empiric IV Vancomycin #2 for now pending cultures -may dc in next 24-48hrs if no gram positive growth -Add Zosyn pending cultures -01/09 SP Ceftriaxone #10 -01/03 SP Zosyn #4 - 10/17 SP IV Vanco and Cefepime - SP Permethrin cream and ivermectin x1 10/17; 2nd tx 10/24/17 -f/u cx -Monitor CBC/CMP, temperatures -Cdiff if diarrhea -Trach/peg care -wound care/prevention per hospital protocol -Aspiration precautions Thank you for this consultation. Will continue to follow along with you. Discussed with Lisy Lindo M.D. Mar 26, 2018 11:55
[2018-03-26] MEDS: Piperacillin/Tazobactam 3.375 GM in D5W 110 ML IVPB SCH ×2 (15:49→22:16)
[2018-03-26] MEDS: Vancomycin 500mg/D5W 110ml IVPB SCH ×2 (15:50)
--- NOTE | 2018-03-26 16:39 | Cardiology Report ---
APPROVED REPORT EKG Measurement Heart [id number] VT [id number] [id number] Sinus rhythm with premature atrial complexes Nonspecific ST abnormality Abnormal ECG
--- NOTE | 2018-03-26 22:15 | History and Physical Report ---
DATE OF ADMISSION: 03/25/2018 CONSULTANTS: 1. Huma Keating M.D. 2. Cesario Daniels M.D. CHIEF COMPLAINT: Sepsis and weakness. BRIEF HISTORY: This is a 67-year-old male from [facility] presents to [place] ER with history of increased weakness, lethargy, was found to be septic, admitted to the step-down unit for further care. Currently, trach, vent, altered, lethargic in bed, nonverbal. PAST MEDICAL HISTORY: 1. Respiratory failure. 2. Hypertension. 3. Renal insufficiency. 4. Malnutrition. PAST SURGICAL HISTORY: Trach and G-tube. MEDICATIONS: Zosyn, vancomycin, levofloxacin, sucralfate, zinc, heparin, pantoprazole, dextrose, albuterol, Tylenol, and morphine. ALLERGIES: Denies. SOCIAL HISTORY: Unable to obtain secondary to the patient's condition. REVIEW OF SYSTEMS: Unavailable. PHYSICAL EXAMINATION: GENERAL: Trach, vent, altered, lethargic, in bed, nonverbal. VITAL SIGNS: Temperature 97 degrees, pulse 88, respirations 20, and blood pressure 136/73. CARDIOVASCULAR: No murmur. LUNGS: Poor air exchange. ABDOMEN: Bowel sounds distant. EXTREMITIES: No cyanosis, clubbing, or edema. NEUROLOGIC: The patient is flaccid in bed, not following directions. Trach in place. G-tube in place. LABORATORY AND DIAGNOSTIC DATA: Labs at this time show white count 27, hemoglobin and hematocrit 11.6/35 and platelets is 409. BMP shows sodium 133, BUN 33, and glucose 153. Alkaline phosphatase 207. BNP 729. INR is 1.0 and PTT is 30. Urinalysis shows 3+ leukocyte esterase. ASSESSMENT: 1. Respiratory failure. 2. Urinary tract infection. 3. Sepsis. 4. Edema. 5. Anemia. 6. Renal insufficiency. 7. Hypertension. 8. Diabetes. 9. Malnutrition. PLAN: 1. Antibiotics per Infectious Disease. 2. Blood pressure and blood sugar control. 3. Dietary followup. 4. CBC and BMP in the morning. Gato Viveros D.O. DR: LEE JOB#: [id number] CC:
[2018-03-27] VITALS: BP 141/49
[2018-03-27] MEDS: Vancomycin 500mg/D5W 110ml IVPB SCH ×4 (01:50→14:24)
[2018-03-27 04:00] VITALS: BP 138/51
[2018-03-27] MEDS: Piperacillin/Tazobactam 3.375 GM in D5W 110 ML IVPB SCH ×3 (05:57→21:08)
[2018-03-27 06:55] LABS: HEMATOCRIT 26.9 % (42.0-52.0); HEMOGLOBIN 8.8 G/DL (14.2-18.0); MEAN CORPUSCULAR VOLUME 83 FL (80-99); PLATELET COUNT 309 K/UL (150-450); RED BLOOD COUNT 3.22 M/UL (4.70-6.10); RED CELL DISTRIBUTION WIDTH 14.4 % (11.6-14.8); WHITE BLOOD COUNT 14.8 K/UL (4.8-10.8)
[2018-03-27 07:15] LABS: ANION GAP 12 mmol/L (5-15); BLOOD UREA NITROGEN 24 mg/dL (7-18); CALCIUM 9.4 MG/DL (8.5-10.1); CARBON DIOXIDE 19 MMOL/L (21-32); CHLORIDE 107 MMOL/L (98-107); CREATININE 1.1 MG/DL (0.55-1.30); POTASSIUM 3.5 MMOL/L (3.5-5.1); SODIUM 138 MMOL/L (136-145)
[2018-03-27 07:20] LABS: ALBUMIN 2.9 G/DL (3.4-5.0); ANION GAP 12 mmol/L (5-15); BLOOD UREA NITROGEN 24 mg/dL (7-18); CALCIUM 9.3 MG/DL (8.5-10.1); CARBON DIOXIDE 19 MMOL/L (21-32); CHLORIDE 107 MMOL/L (98-107); CREATININE 1.1 MG/DL (0.55-1.30); PHOSPHORUS 2.2 MG/DL (2.5-4.9); POTASSIUM 3.6 MMOL/L (3.5-5.1); SODIUM 138 MMOL/L (136-145)
[2018-03-27 08:00] VITALS: BP 128/71
[2018-03-27] MEDS: Pantoprazole Inj IV SCH (08:21)
[2018-03-27] MEDS: Zinc Sulfate 220mg cap ORAL SCH (08:21)
[2018-03-27] MEDS: Sucralfate 1gm tab GT SCH ×4 (08:21→21:07)
[2018-03-27] MEDS: Heparin 5000 units/ml inj SUBQ SCH ×2 (08:24→21:00)
--- NOTE | 2018-03-27 11:43 | Infectious Diseases Prog Note ---
Assessment/Plan Assessment/Plan Abx: IV Vanco 03/25- Cefepime x1 03/25 Levo x1 03/25 Assessment: Sepsis; improving -likely 2ry to UTI- r/o bacteremia -u/a wbc tntc, nit neg, leuk +3; ucx GNR - Bcx 09/13 GPC clusters (real vs contaminant) -sp cx GNR (likely colonizer) -CXR: No acute findings Leukocytosis (2ry to UTI, GIB also contributing); improving Recurrent UGIB -History of upper GI bleed. -hx severe esophagitis s/p multiple EGDs REcent UTI, 12/2017, s/p Rx - ucx >100k P stuarti (S Ceftriaxone, Cefepime; R Genta, levo/cipro, bactrim) - History of chronic anemia status post PEG and bedbound. - Chronic respiratory failure. -. Status post trach and PEG. -. Functional quadriplegia. -. Encephalopathy. -. CAD. -. CHF. -. Hypothyroidism. -. Diabetes. -. Bipolar disorder/schizophrenia. -. hx of possible scabies 10/2017 -hx VRE, MRSA colonization Plan: -Continue empiric IV Vancomycin #3 pending ID GPC clusters bcx -repeat 2 sets of Bcx -Continue Zosyn #2 pending cultures -low threshold to switch to Meropenem if worsening sepsis -01/09 SP Ceftriaxone #10 -01/03 SP Zosyn #4 - 10/17 SP IV Vanco and Cefepime - SP Permethrin cream and ivermectin x1 10/17; 2nd tx 10/24/17 -f/u cx -Monitor CBC/CMP, temperatures -Cdiff if diarrhea -Trach/peg care -wound care/prevention per hospital protocol -Aspiration precautions -GI f/u Thank you for this consultation. Will continue to follow along with you. Discussed with RN. Subjective Allergies: Coded Allergies: NO KNOWN DRUG ALLERGIES (Verified Allergy, Unknown, 09/11/16) Subjective Tm 99.9 WBC significantly improved Bcx NTD Objective Vital Signs Last 24 Hour Vital Signs Date Time Temp Pulse Resp B/P (MAP) Pulse Ox O2 Delivery O2 Flow Rate FiO2 03/27/18 09:20 98.9 03/27/18 09:12 89 29 40 03/27/18 08:58 123 7/18/18 08:23 99.9 03/27/18 08:00 99.9 82 22 128/71 (90) 96 99.9 03/27/18 08:00 30 03/27/18 08:00 Mechanical Ventilator 03/27/18 06:40 91 30 40 03/27/18 05:07 89 29 40 03/27/18 04:00 30 03/27/18 04:00 Mechanical Ventilator 03/27/18 04:00 98.6 88 18 138/51 (80) 98 98.6 03/27/18 03:29 103 03/27/18 03:05 92 26 40 03/27/18 01:28 76 16 40 03/27/18 00:00 98.6 80 16 141/49 (79) 100 98.6 03/27/18 00:00 Mechanical Ventilator 03/27/18 00:00 69 03/27/18 00:00 30 03/26/18 22:31 81 16 40 03/26/18 20:56 88 16 40 03/26/18 20:00 30 03/26/18 20:00 Mechanical Ventilator 03/26/18 20:00 65 03/26/18 18:48 91 19 40 03/26/18 16:52 87 19 40 03/26/18 16:00 74 03/26/18 16:00 30 03/26/18 16:00 Mechanical Ventilator 03/26/18 15:29 91 17 40 03/26/18 12:42 88 18 40 03/26/18 12:00 93 03/26/18 12:00 Mechanical Ventilator Height (Feet): 6 Height (Inches): 1.00 Weight (Pounds): 135 Objective General Appearance: cachetic Lines, tubes and drains: peripheral Neck: normal alignment Respiratory/Chest: chest wall non-tender, lungs clear Cardiovascular/Chest: normal peripheral pulses, normal rate Abdomen: normal bowel sounds, non tender Genitourinary/Rectal: normal genital exam, heme negative stool, normal prostate exam Extremities: non-tender Skin Exam: normal pigmentation Neurologic: 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 and 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 II-XII grossly normal, motor weakness Microbiology Date/Time Source Procedure Growth Status 03/25/18 23:15 Blood Blood Culture - Preliminary NO GROWTH AFTER 24 HOURS Resulted 03/25/18 23:00 Blood Blood Culture - Preliminary NO GROWTH AFTER 24 HOURS Resulted 03/26/18 12:45 Sputum Gram Stain Pending Resulted 03/26/18 12:45 Sputum Culture - Preliminary Gram Negative Bacillus 1 Resulted 03/26/18 04:00 Urine,Clean Catch Urine Culture - Preliminary Gram Negative Bacillus 1 Resulted Laboratory Tests Test 03/26/18 12:45 03/27/18 05:20 Arterial Blood pH 7.360 (7.350-7.450) Arterial Blood Partial Pressure CO2 30.6 mmHg (35.0-45.0) L Arterial Blood Partial Pressure O2 170.3 mmHg (75.0-100.0) H Arterial Blood HCO3 17.2 mmol/L (22.0-26.0) L Arterial Blood Oxygen Saturation 99.0 % (92.0-98.0) H Arterial Blood Base Excess -7.2 Ger Test Positive White Blood Count 14.8 K/UL (4.8-10.8) H Red Blood Count 3.22 M/UL (4.70-6.10) L Hemoglobin 8.8 G/DL (14.2-18.0) L Hematocrit 26.9 % (42.0-52.0) L Mean Corpuscular Volume 83 FL (80-99) Mean Corpuscular Hemoglobin 27.5 PG (27.0-31.0) Mean Corpuscular Hemoglobin Concent 32.9 G/DL (32.0-36.0) Red Cell Distribution Width 14.4 % (11.6-14.8) Platelet Count 309 K/UL (150-450) Mean Platelet Volume 7.5 FL (6.5-10.1) Neutrophils (%) (Auto) % (45.0-75.0) Lymphocytes (%) (Auto) % (20.0-45.0) Monocytes (%) (Auto) % (1.0-10.0) Eosinophils (%) (Auto) % (0.0-3.0) Basophils (%) (Auto) % (0.0-2.0) Differential Total Cells Counted 100 Neutrophils % (Manual) 86 % (45-75) H Lymphocytes % (Manual) 7 % (20-45) L Monocytes % (Manual) 3 % (1-10) Eosinophils % (Manual) 1 % (0-3) Basophils % (Manual) 0 % (0-2) Band Neutrophils 3 % (0-8) Platelet Estimate Adequate Platelet Morphology Normal Red Blood Cell Morphology Normal Sodium Level 138 MMOL/L (136-145) Potassium Level 3.5 MMOL/L (3.5-5.1) Chloride Level 107 MMOL/L (98-107) Carbon Dioxide Level 19 MMOL/L (21-32) L Anion Gap 12 mmol/L (5-15) Blood Urea Nitrogen 24 mg/dL (7-18) H Creatinine 1.1 MG/DL (0.55-1.30) Estimat Glomerular Filtration Rate > 60 mL/min (>60) Glucose Level 145 MG/DL (74-106) H Calcium Level 9.4 MG/DL (8.5-10.1) Phosphorus Level 2.2 MG/DL (2.5-4.9) L Albumin 2.9 G/DL (3.4-5.0) L Current Medications Medications (Trade) Dose Ordered Sig/Wanda Route PRN Reason Start Time Stop Time Status Last Admin Dose Admin Acetaminophen (Tylenol) 650 mg Q4H PRN ORAL FEVER 03/26/18 07:30 04/25/18 07:29 03/27/18 08:23 Albuterol/ Ipratropium (Albuterol/ Ipratropium) 3 ml Q4H PRN HHN Shortness of Breath 03/26/18 07:30 03/31/18 07:29 Dextrose (Dextrose 50%) 25 ml STAT PRN IV Hypoglycemia 03/26/18 07:30 04/25/18 07:29 Dextrose (Dextrose 50%) 50 ml STAT PRN IV Hypoglycemia 03/26/18 08:30 04/25/18 08:29 Heparin Sodium (Porcine) (Heparin 5000 units/ml) 5,000 units EVERY 12 HOURS SUBQ 03/26/18 09:00 04/25/18 08:59 03/27/18 08:24 Levothyroxine Sodium (Synthroid) 50 mcg DAILY GT 03/26/18 09:00 04/25/18 08:59 03/27/18 08:21 Lorazepam (Ativan 2mg/ml 1ml) 2 mg Q2H PRN IV For Anxiety 03/26/18 07:30 04/02/18 07:29 Morphine Sulfate (Morphine Sulfate) 4 mg Q4H PRN IVP Severe Pain (Pain Scale 7-10) 03/26/18 07:30 04/02/18 07:29 Ondansetron HCl (Zofran) 4 mg Q6H PRN IVP Nausea & Vomiting 03/26/18 07:30 04/25/18 07:29 Pantoprazole (Protonix) 40 mg DAILY IV 03/26/18 09:00 04/25/18 08:59 03/27/18 08:21 Piperacillin Sod/ Tazobactam Sod 3.375 gm/Dextrose 110 ml @ 27.5 mls/hr EVERY 8 HOURS IVPB 03/26/18 14:00 03/31/18 13:59 03/27/18 05:57 Polyethylene Glycol (Miralax) 17 gm DAILYPRN PRN ORAL Constipation 03/26/18 07:30 04/25/18 07:29 Sucralfate (Carafate) 1 gm FOUR TIMES A DAY GT 03/26/18 09:00 04/25/18 08:59 03/27/18 08:21 Vancomycin HCl (Vanco rx to dose) 1 ea DAILY PRN MISC per rx protocol 03/26/18 08:30 04/25/18 08:29 Vancomycin HCl 500 mg/Dextrose 110 ml @ 110 mls/hr Q12H IVPB 03/26/18 13:00 03/31/18 12:59 03/27/18 01:50 Zinc Sulfate (Zinc Sulfate) 220 mg DAILY ORAL 03/26/18 09:00 04/25/18 08:59 03/27/18 08:21 Lisy Lai M.D. Mar 27, 2018 11:43
[2018-03-27 12:00] VITALS: BP 126/77
--- NOTE | 2018-03-27 14:02 | Pulmonolgy Critical Care Note ---
Critical Care - Asmt/Plan Problems: (1) Upper GI bleed (2) Chronic respiratory failure (3) Severe protein-calorie malnutrition (4) Psychosis (5) Debility (6) Dementia (7) Alzheimer's dementia (8) Feeding by G-tube Respiratory: monitor respiratory rate, adjust FIO2, CXR Cardiac: continue to monitor HR/BP Renal: F/U I&O, check electrolytes Infectious Disease: check cultures, continue antibiotics Gastrointestinal: hold feedings Endocrine: monitor blood sugar Hematologic: monitor H/H, transfuse if hgb<8.5 Affect: PRN ativan Prophylaxis: Protonix, Heparin Notes Reviewed: cardio, 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 with: nurses, consultants, mental health case managermanager camp - Objective Last 24 Hour Vital Signs Date Time Temp Pulse Resp B/P (MAP) Pulse Ox O2 Delivery O2 Flow Rate FiO2 03/27/18 12:40 89 19 40 03/27/18 12:00 98.1 101 20 126/77 (93) 100 98.1 03/27/18 12:00 Mechanical Ventilator 03/27/18 12:00 95 03/27/18 12:00 30 03/27/18 11:06 93 31 40 03/27/18 09:20 98.9 03/27/18 09:12 89 29 40 03/27/18 08:58 123 03/27/18 08:23 99.9 03/27/18 08:00 99.9 82 22 128/71 (90) 96 99.9 03/27/18 08:00 30 03/27/18 08:00 Mechanical Ventilator 03/27/18 06:40 91 30 40 03/27/18 05:07 89 29 40 03/27/18 04:00 30 03/27/18 04:00 Mechanical Ventilator 03/27/18 04:00 98.6 88 18 138/51 (80) 98 98.6 03/27/18 03:29 103 03/27/18 03:05 92 26 40 03/27/18 01:28 76 16 40 03/27/18 00:00 98.6 80 16 141/49 (79) 100 98.6 03/27/18 00:00 Mechanical Ventilator 03/27/18 00:00 69 03/27/18 00:00 30 03/26/18 22:31 81 16 40 03/26/18 20:56 88 16 40 03/26/18 20:00 30 03/26/18 20:00 Mechanical Ventilator 03/26/18 20:00 65 03/26/18 18:48 91 19 40 03/26/18 16:52 87 19 40 03/26/18 16:00 74 03/26/18 16:00 30 03/26/18 16:00 Mechanical Ventilator 03/26/18 15:29 91 17 40 Status: awake Condition: critical Neck: full ROM Heart: HR/BP stable, regular Abdomen: active bowel sounds Extremities: no C/C/E Decubiti: location, stage Micro: Microbiology Date/Time Source Procedure Growth Status 03/25/18 23:15 Blood Blood Culture - Preliminary NO GROWTH AFTER 24 HOURS Resulted 03/25/18 23:00 Blood Blood Culture - Preliminary Resulted 03/26/18 12:45 Sputum Gram Stain - Final Resulted 03/26/18 12:45 Sputum Culture - Preliminary Gram Negative Bacillus 1 Resulted 03/26/18 04:00 Urine,Clean Catch Urine Culture - Preliminary Gram Negative Bacillus 1 Resulted Accucheck: 171 Critical Care - Subjective ROS Limited/Unobtainable: Yes Condition: critical EKG Rhythm: Sinus Rhythm FI02: 40 Vent Support Breath Rate: 16 Vent Support Mode: AC Vent Tidal Volume: 600 Sputum Amount: Large PEEP: 5.0 PIP: 24 Tube Feeding Amount: 40 I&O: Intake and Output 03/26/18 03/27/18 19:00 07:00 Intake Total 140 ml 670.0 ml Output Total 850 ml 1200 ml Balance -710 ml -530.0 ml Intake Free Water 50 ml 60 ml IV Total 220.0 ml Tube Feeding 90 ml 330 ml Other 60 ml Output Urine Total 850 ml 1200 ml Labs: Laboratory Tests Test 03/27/18 05:20 03/27/18 12:00 White Blood Count 14.8 K/UL (4.8-10.8) H Red Blood Count 3.22 M/UL (4.70-6.10) L Hemoglobin 8.8 G/DL (14.2-18.0) L Hematocrit 26.9 % (42.0-52.0) L Mean Corpuscular Volume 83 FL (80-99) Mean Corpuscular Hemoglobin 27.5 PG (27.0-31.0) Mean Corpuscular Hemoglobin Concent 32.9 G/DL (32.0-36.0) Red Cell Distribution Width 14.4 % (11.6-14.8) Platelet Count 309 K/UL (150-450) Mean Platelet Volume 7.5 FL (6.5-10.1) Neutrophils (%) (Auto) % (45.0-75.0) Lymphocytes (%) (Auto) % (20.0-45.0) Monocytes (%) (Auto) % (1.0-10.0) Eosinophils (%) (Auto) % (0.0-3.0) Basophils (%) (Auto) % (0.0-2.0) Differential Total Cells Counted 100 Neutrophils % (Manual) 86 % (45-75) H Lymphocytes % (Manual) 7 % (20-45) L Monocytes % (Manual) 3 % (1-10) Eosinophils % (Manual) 1 % (0-3) Basophils % (Manual) 0 % (0-2) Band Neutrophils 3 % (0-8) Platelet Estimate Adequate Platelet Morphology Normal Red Blood Cell Morphology Normal Sodium Level 138 MMOL/L (136-145) Potassium Level 3.5 MMOL/L (3.5-5.1) Chloride Level 107 MMOL/L (98-107) Carbon Dioxide Level 19 MMOL/L (21-32) L Anion Gap 12 mmol/L (5-15) Blood Urea Nitrogen 24 mg/dL (7-18) H Creatinine 1.1 MG/DL (0.55-1.30) Estimat Glomerular Filtration Rate > 60 mL/min (>60) Glucose Level 145 MG/DL (74-106) H Calcium Level 9.4 MG/DL (8.5-10.1) Phosphorus Level 2.2 MG/DL (2.5-4.9) L Albumin 2.9 G/DL (3.4-5.0) L Vancomycin Level Trough 15.3 ug/mL (5.0-12.0) H Huma Keating MD Mar 27, 2018 14:02
--- NOTE | 2018-03-27 14:44 | General Progress Note ---
Assessment/Plan Problem List: (1) Edema ICD Codes: R60.9 - Edema, unspecified SNOMED: 741157438, 770273572 (2) Anemia ICD Codes: D64.9 - Anemia, unspecified SNOMED: 736819646 (3) HTN (hypertension) ICD Codes: I10 - Essential (primary) hypertension SNOMED: 51993767 (4) Diabetes ICD Codes: E11.9 - Type 2 diabetes mellitus without complications SNOMED: 59450288 (5) Malnutrition ICD Codes: E46 - Unspecified protein-calorie malnutrition SNOMED: 00208881 (6) Anemia ICD Codes: D64.9 - Anemia, unspecified SNOMED: 450368065 (7) UTI (urinary tract infection) ICD Codes: N39.0 - Urinary tract infection, site not specified SNOMED: 99928088 (8) Sepsis ICD Codes: A41.9 - Sepsis SNOMED: 31711765 (9) Respiratory failure, [id number] ICD Codes: J96.20 - Respiratory failure, [id number] SNOMED: 95902501 Status: unchanged Assessment/Plan vent abx bp bs control cbc bmp am Subjective Constitutional: Reports: weakness Allergies: Coded Allergies: NO KNOWN DRUG ALLERGIES (Verified Allergy, Unknown, 09/11/16) All Systems: reviewed and negative except above Subjective trach vent asleep Objective Last 24 Hour Vital Signs Date Time Temp Pulse Resp B/P (MAP) Pulse Ox O2 Delivery O2 Flow Rate FiO2 03/27/18 12:40 89 19 40 03/27/18 12:00 98.1 101 20 126/77 (93) 100 98.1 03/27/18 12:00 Mechanical Ventilator 03/27/18 12:00 95 03/27/18 12:00 30 03/27/18 11:06 93 31 40 03/27/18 09:20 98.9 03/27/18 09:12 89 29 40 03/27/18 08:58 123 03/27/18 08:23 99.9 03/27/18 08:00 99.9 82 22 128/71 (90) 96 99.9 03/27/18 08:00 30 03/27/18 08:00 Mechanical Ventilator 03/27/18 06:40 91 30 40 03/27/18 05:07 89 29 40 03/27/18 04:00 30 03/27/18 04:00 Mechanical Ventilator 03/27/18 04:00 98.6 88 18 138/51 (80) 98 98.6 03/27/18 03:29 103 03/27/18 03:05 92 26 40 03/27/18 01:28 76 16 40 03/27/18 00:00 98.6 80 16 141/49 (79) 100 98.6 03/27/18 00:00 Mechanical Ventilator 03/27/18 00:00 69 03/27/18 00:00 30 03/26/18 22:31 81 16 40 03/26/18 20:56 88 16 40 03/26/18 20:00 30 03/26/18 20:00 Mechanical Ventilator 03/26/18 20:00 65 03/26/18 18:48 91 19 40 03/26/18 16:52 87 19 40 03/26/18 16:00 74 03/26/18 16:00 30 03/26/18 16:00 Mechanical Ventilator 03/26/18 15:29 91 17 40 Intake and Output 03/26/18 03/27/18 19:00 07:00 Intake Total 140 ml 670.0 ml Output Total 850 ml 1200 ml Balance -710 ml -530.0 ml Intake Free Water 50 ml 60 ml IV Total 220.0 ml Tube Feeding 90 ml 330 ml Other 60 ml Output Urine Total 850 ml 1200 ml Laboratory Tests 03/27/18 05:20: White Blood Count 14.8H, Red Blood Count 3.22L, Hemoglobin 8.8L, Hematocrit 26.9L, Mean Corpuscular Volume 83, Mean Corpuscular Hemoglobin 27.5, Mean Corpuscular Hemoglobin Concent 32.9, Red Cell Distribution Width 14.4, Platelet Count 309, Mean Platelet Volume 7.5, Neutrophils (%) (Auto) , Lymphocytes (%) ( Auto) , Monocytes (%) (Auto) , Eosinophils (%) (Auto) , Basophils (%) (Auto) , Differential Total Cells Counted 100, Neutrophils % (Manual) 86H, Lymphocytes % (Manual) 7L, Monocytes % (Manual) 3, Eosinophils % (Manual) 1, Basophils % ( Manual) 0, Band Neutrophils 3, Platelet Estimate Adequate, Platelet Morphology Normal, Red Blood Cell Morphology Normal, Sodium Level 138, Potassium Level 3.5 , Chloride Level 107, Carbon Dioxide Level 19L, Anion Gap 12, Blood Urea Nitrogen 24H, Creatinine 1.1, Estimat Glomerular Filtration Rate > 60, Glucose Level 145H, Calcium Level 9.4, Phosphorus Level 2.2L, Albumin 2.9L 03/27/18 12:00: Vancomycin Level Trough 15.3H Height (Feet): 6 Height (Inches): 1.00 Weight (Pounds): 135 General Appearance: lethargic EENT: normal ENT inspection Neck: normal alignment Cardiovascular: normal peripheral pulses, normal rate, regular rhythm Respiratory/Chest: chest wall non-tender, lungs clear, normal breath sounds Abdomen: normal bowel sounds, non tender, soft Extremities: normal inspection Edema: no edema noted Arm (L), no edema noted Arm (R), no edema noted Leg (L), no edema noted Leg (R), no edema noted Pedal (L), no edema noted Pedal (R), no edema noted Generalized Neurologic: motor weakness Skin: normal pigmentation, warm/dry Gato Viveros DO Mar 27, 2018 14:44
[2018-03-27 16:00] VITALS: BP 112/64
[2018-03-27 20:00] VITALS: BP 138/52
[2018-03-27] MEDS ORDERED: Vancomycin 1 GM in D5W 275 ML IV SCH (23:00)
[2018-03-28] VITALS: BP 152/65
[2018-03-28] MEDS: Vancomycin 500mg/D5W 110ml IVPB SCH ×2 (01:46)
[2018-03-28 03:42] VITALS: BP 139/77
[2018-03-28] MEDS: Piperacillin/Tazobactam 3.375 GM in D5W 110 ML IVPB SCH ×2 (05:12→13:52)
[2018-03-28 06:07] LABS: HEMATOCRIT 24.3 % (42.0-52.0); HEMOGLOBIN 7.7 G/DL (14.2-18.0); MEAN CORPUSCULAR VOLUME 84 FL (80-99); PLATELET COUNT 284 K/UL (150-450); RED CELL DISTRIBUTION WIDTH 14.6 % (11.6-14.8); WHITE BLOOD COUNT 9.3 K/UL (4.8-10.8)
[2018-03-28 06:14] LABS: ANION GAP 10 mmol/L (5-15); BLOOD UREA NITROGEN 28 mg/dL (7-18); CALCIUM 9.1 MG/DL (8.5-10.1); CARBON DIOXIDE 23 MMOL/L (21-32); CHLORIDE 106 MMOL/L (98-107); CREATININE 1.3 MG/DL (0.55-1.30); POTASSIUM 3.7 MMOL/L (3.5-5.1); SODIUM 139 MMOL/L (136-145)
[2018-03-28 08:00] VITALS: BP 122/82
[2018-03-28] MEDS: Heparin 5000 units/ml inj SUBQ SCH ×3 (09:00→20:32)
[2018-03-28] MEDS: Zinc Sulfate 220mg cap ORAL SCH (09:17)
[2018-03-28] MEDS: Sucralfate 1gm tab GT SCH ×4 (09:17→20:31)
[2018-03-28] MEDS: Pantoprazole Inj IV SCH (09:17)
[2018-03-28] MEDS ORDERED: Lidocaine 1% Plain 30 ml INJ PRN (10:00)
[2018-03-28] MEDS ORDERED: Heparin 2000 units/Ns 1000ml INJ PRN (10:00)
--- NOTE | 2018-03-28 10:15 | Pulmonolgy Critical Care Note ---
Critical Care - Asmt/Plan Problems: (1) Upper GI bleed (2) Chronic respiratory failure (3) Severe protein-calorie malnutrition (4) Psychosis (5) Debility (6) Dementia (7) Alzheimer's dementia (8) Feeding by G-tube Respiratory: monitor respiratory rate, adjust FIO2, CXR Cardiac: continue to monitor HR/BP Renal: F/U I&O, keep IV fluid Infectious Disease: check cultures Gastrointestinal: continue feedings/current rate Endocrine: monitor blood sugar, continue sliding scale insulin Hematologic: monitor H/H, transfuse if hgb<8.5 Neurologic: PRN Morphine, keep patient comfortable Affect: PRN ativan Time Spent (Minutes): 40 Notes Reviewed: 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 with: nurses, consultants, family independence case managerwarehouse manager - Objective Last 24 Hour Vital Signs Date Time Temp Pulse Resp B/P (MAP) Pulse Ox O2 Delivery O2 Flow Rate FiO2 03/28/18 09:15 74 17 40 03/28/18 08:00 Mechanical Ventilator 03/28/18 08:00 86 03/28/18 08:00 98.5 88 20 122/82 (95) 100 98.5 03/28/18 08:00 30 03/28/18 07:08 76 18 40 03/28/18 05:24 71 18 40 03/28/18 04:00 Mechanical Ventilator 03/28/18 04:00 30 03/28/18 04:00 84 03/28/18 03:42 98.1 89 20 139/77 (97) 100 98.1 03/28/18 03:30 74 18 40 03/28/18 02:23 77 03/28/18 01:30 75 18 40 03/28/18 00:00 Mechanical Ventilator 03/28/18 00:00 30 03/28/18 00:00 98.8 98 18 152/65 (94) 98 98.8 03/27/18 23:28 78 16 40 03/27/18 20:43 75 19 40 03/27/18 20:00 71 03/27/18 20:00 Mechanical Ventilator 03/27/18 20:00 98.1 73 20 138/52 (80) 100 98.1 03/27/18 20:00 30 03/27/18 19:30 77 20 40 03/27/18 17:10 79 24 40 03/27/18 16:00 98.2 80 20 112/64 (80) 95 98.2 03/27/18 16:00 30 03/27/18 16:00 Mechanical Ventilator 03/27/18 15:59 95 03/27/18 14:48 77 22 40 03/27/18 12:40 89 19 40 03/27/18 12:00 98.1 101 20 126/77 (93) 100 98.1 03/27/18 12:00 Mechanical Ventilator 03/27/18 12:00 95 03/27/18 12:00 30 03/27/18 11:06 93 31 40 Status: awake Condition: critical HEENT: atraumatic Lungs: clear Heart: HR/BP stable Abdomen: soft, non-tender Extremities: no C/C/E Decubiti: location Micro: Microbiology Date/Time Source Procedure Growth Status 03/25/18 23:15 Blood Blood Culture - Preliminary NO GROWTH AFTER 48 HOURS Resulted 03/25/18 23:00 Blood Blood Culture - Preliminary Staphylococcus Sp Coag Neg Resulted 03/26/18 12:45 Sputum Gram Stain - Final Resulted 03/26/18 12:45 Sputum Culture - Preliminary A.baumanii Complx - Mdr Gram Negative Bacillus 2 Resulted 03/26/18 04:00 Urine,Clean Catch Urine Culture - Preliminary Gram Negative Bacillus 1 Resulted 03/26/18 03:30 Rectum - Final NO CARBAPENEM-RESISTANT ENTEROBACTERI... Complete Accucheck: 171 Critical Care - Subjective ROS Limited/Unobtainable: No Condition: critical EKG Rhythm: Sinus Rhythm FI02: 40 Vent Support Breath Rate: 16 Vent Support Mode: AC Vent Tidal Volume: 600 Sputum Amount: Moderate PEEP: 5.0 PIP: 20 Tube Feeding Amount: 40 I&O: Intake and Output 03/27/18 03/28/18 19:00 07:00 Intake Total 692.5 ml 847.5 ml Output Total 50 ml 250 ml Balance 642.5 ml 597.5 ml Intake Free Water 100 ml IV Total 302.5 ml 247.5 ml Tube Feeding 360 ml 440 ml Other 30 ml 60 ml Output Urine Total 50 ml 250 ml # Voids 2 CXR: cxr is clear Labs: Laboratory Tests Test 03/27/18 12:00 03/28/18 03:45 Vancomycin Level Trough 15.3 ug/mL (5.0-12.0) H White Blood Count 9.3 K/UL (4.8-10.8) Red Blood Count 2.90 M/UL (4.70-6.10) L Hemoglobin 7.7 G/DL (14.2-18.0) L Hematocrit 24.3 % (42.0-52.0) L Mean Corpuscular Volume 84 FL (80-99) Mean Corpuscular Hemoglobin 26.5 PG (27.0-31.0) L Mean Corpuscular Hemoglobin Concent 31.6 G/DL (32.0-36.0) L Red Cell Distribution Width 14.6 % (11.6-14.8) Platelet Count 284 K/UL (150-450) Mean Platelet Volume 7.3 FL (6.5-10.1) Neutrophils (%) (Auto) % (45.0-75.0) Lymphocytes (%) (Auto) % (20.0-45.0) Monocytes (%) (Auto) % (1.0-10.0) Eosinophils (%) (Auto) % (0.0-3.0) Basophils (%) (Auto) % (0.0-2.0) Differential Total Cells Counted 100 Neutrophils % (Manual) 71 % (45-75) Lymphocytes % (Manual) 11 % (20-45) L Monocytes % (Manual) 12 % (1-10) H Eosinophils % (Manual) 5 % (0-3) H Basophils % (Manual) 0 % (0-2) Myelocytes % 1 % (0-0) H Band Neutrophils 0 % (0-8) Platelet Estimate Adequate Platelet Morphology Normal Sodium Level 139 MMOL/L (136-145) Potassium Level 3.7 MMOL/L (3.5-5.1) Chloride Level 106 MMOL/L (98-107) Carbon Dioxide Level 23 MMOL/L (21-32) Anion Gap 10 mmol/L (5-15) Blood Urea Nitrogen 28 mg/dL (7-18) H Creatinine 1.3 MG/DL (0.55-1.30) Estimat Glomerular Filtration Rate 54.7 mL/min (>60) Glucose Level 113 MG/DL (74-106) H Calcium Level 9.1 MG/DL (8.5-10.1) Huma Keating MD Mar 28, 2018 10:15
--- NOTE | 2018-03-28 10:19 | General Progress Note ---
Progress Note Progress Note Pt needs a PICC line. He doesn't have any IV access. Pt doesn't have any family to sign his consents. Huma Keating MD Mar 28, 2018 10:19
--- NOTE | 2018-03-28 11:58 | Diagnostic Imaging Report ---
Indications: Needs long-term IV access Technique: Procedure performed at bedside. Procedural timeout performed. Ultrasound confirms patent compressible right brachial vein. Total sterile technique, including sterile probe cover and sterile gel, sterile gloves, hand hygiene, hat, mask,, sterile gown, large sterile drape, and preparation with 2% chlorhexidine utilized. Local anesthesia with 1% lidocaine. Under real-time ultrasound guidance, puncture brachial vein using 21-gauge needle, passage 0.018 guidewire, exchange for 5 [place] peel-away sheath. 5 [place] Bard dual-lumen power PICC cut to 41 cm. It was inserted through the peel-away sheath. Peel-away sheath and guidewire removed. Catheter fixed to the skin. Both catheter ports aspirated and flushed. Patient tolerated procedure well, without immediate complication. Followup chest x-ray obtained, documents catheter tip position at the mid right atrium. Catheter was pulled back 2 cm, and a follow-up radiograph obtained demonstrating catheter tip position at the cavoatrial junction Impression: Successful bedside placement of right arm PICC under sonographic guidance, as described above.
[2018-03-28 12:00] VITALS: BP 128/78
[2018-03-28] MEDS ORDERED: Vancomycin 500mg/D5W 110ml IVPB SCH ×2 (13:00)
--- NOTE | 2018-03-28 14:32 | Infectious Diseases Prog Note ---
Assessment/Plan Assessment/Plan Abx: IV Vanco 03/25- Cefepime x1 03/25 Levo x1 03/25 Assessment: Sepsis; improving -likely 2ry to UTI- -u/a wbc tntc, nit neg, leuk +3; ucx E.coli (R cipro, bactrim, Genta; S cefrizone, Ancef) - Bcx 09/13 CONS (likely contaminant); 03/27 Bcx p -sp cx MDR ABC, GNR #2 (likely colonizer) -CXR: No acute findings Leukocytosis (2ry to UTI, GIB also contributing); resolved Recurrent UGIB -History of upper GI bleed. -hx severe esophagitis s/p multiple EGDs REcent UTI, 12/2017, s/p Rx - ucx >100k P stuarti (S Ceftriaxone, Cefepime; R Genta, levo/cipro, bactrim) - History of chronic anemia status post PEG and bedbound. - Chronic respiratory failure. -. Status post trach and PEG. -. Functional quadriplegia. -. Encephalopathy. -. CAD. -. CHF. -. Hypothyroidism. -. Diabetes. -. Bipolar disorder/schizophrenia. -. hx of possible scabies 10/2017 -hx VRE, MRSA colonization Plan: -D/c empiric IV Vancomycin #4 -f/u repeat 2 sets of Bcx -Switch Zosyn #3/7-10 to Ceftriaxone for E.coli UTI -01/09 SP Ceftriaxone #10 -01/03 SP Zosyn #4 - 10/17 SP IV Vanco and Cefepime - SP Permethrin cream and ivermectin x1 10/17; 2nd tx 10/24/17 -f/u cx -Monitor CBC/CMP, temperatures -Cdiff if diarrhea -Trach/peg care -wound care/prevention per hospital protocol -Aspiration precautions -GI f/u Thank you for this consultation. Will continue to follow along with you. Discussed with RN. Subjective Allergies: Coded Allergies: NO KNOWN DRUG ALLERGIES (Verified Allergy, Unknown, 09/11/16) Subjective Tm 99.9 WBC significantly improved Bcx NTD Objective Vital Signs Last 24 Hour Vital Signs Date Time Temp Pulse Resp B/P (MAP) Pulse Ox O2 Delivery O2 Flow Rate FiO2 03/28/18 13:02 77 17 40 03/28/18 12:06 30 03/28/18 12:00 98.9 85 18 128/78 (95) 100 98.9 03/28/18 12:00 Mechanical Ventilator 03/28/18 12:00 83 03/28/18 12:00 30 03/28/18 11:29 75 16 40 03/28/18 09:15 74 17 40 03/28/18 08:00 Mechanical Ventilator 03/28/18 08:00 86 03/28/18 08:00 98.5 88 20 122/82 (95) 100 98.5 03/28/18 08:00 30 03/28/18 07:08 76 18 40 03/28/18 05:24 71 18 40 03/28/18 04:00 Mechanical Ventilator 03/28/18 04:00 30 03/28/18 04:00 84 03/28/18 03:42 98.1 89 20 139/77 (97) 100 98.1 03/28/18 03:30 74 18 40 03/28/18 02:23 77 03/28/18 01:30 75 18 40 03/28/18 00:00 Mechanical Ventilator 03/28/18 00:00 30 03/28/18 00:00 98.8 98 18 152/65 (94) 98 98.8 03/27/18 23:28 78 16 40 03/27/18 20:43 75 19 40 03/27/18 20:00 71 03/27/18 20:00 Mechanical Ventilator 03/27/18 20:00 98.1 73 20 138/52 (80) 100 98.1 03/27/18 20:00 30 03/27/18 19:30 77 20 40 03/27/18 17:10 79 24 40 03/27/18 16:00 98.2 80 20 112/64 (80) 95 98.2 03/27/18 16:00 30 03/27/18 16:00 Mechanical Ventilator 03/27/18 15:59 95 03/27/18 14:48 77 22 40 Height (Feet): 6 Height (Inches): 1.00 Weight (Pounds): 135 Objective General Appearance: cachetic Lines, tubes and drains: peripheral Neck: normal alignment Respiratory/Chest: chest wall non-tender, lungs clear Cardiovascular/Chest: normal peripheral pulses, normal rate Abdomen: normal bowel sounds, non tender Genitourinary/Rectal: normal genital exam, heme negative stool, normal prostate exam Extremities: non-tender Skin Exam: normal pigmentation Neurologic: white sidewall tire buffer II-XII grossly normal, motor weakness Microbiology Date/Time Source Procedure Growth Status 03/25/18 23:15 Blood Blood Culture - Preliminary NO GROWTH AFTER 48 HOURS Resulted 03/25/18 23:00 Blood Blood Culture - Preliminary Staphylococcus Sp Coag Neg Resulted 03/26/18 12:45 Sputum Gram Stain - Final Resulted 03/26/18 12:45 Sputum Culture - Preliminary A.baumanii Complx - Mdr Gram Negative Bacillus 2 Resulted 03/26/18 04:00 Urine,Clean Catch Urine Culture - Final Escherichia Coli Complete 03/26/18 03:30 Rectum - Final NO CARBAPENEM-RESISTANT ENTEROBACTERI... Complete Laboratory Tests Test 03/28/18 03:45 White Blood Count 9.3 K/UL (4.8-10.8) Red Blood Count 2.90 M/UL (4.70-6.10) L Hemoglobin 7.7 G/DL (14.2-18.0) L Hematocrit 24.3 % (42.0-52.0) L Mean Corpuscular Volume 84 FL (80-99) Mean Corpuscular Hemoglobin 26.5 PG (27.0-31.0) L Mean Corpuscular Hemoglobin Concent 31.6 G/DL (32.0-36.0) L Red Cell Distribution Width 14.6 % (11.6-14.8) Platelet Count 284 K/UL (150-450) Mean Platelet Volume 7.3 FL (6.5-10.1) Neutrophils (%) (Auto) % (45.0-75.0) Lymphocytes (%) (Auto) % (20.0-45.0) Monocytes (%) (Auto) % (1.0-10.0) Eosinophils (%) (Auto) % (0.0-3.0) Basophils (%) (Auto) % (0.0-2.0) Differential Total Cells Counted 100 Neutrophils % (Manual) 71 % (45-75) Lymphocytes % (Manual) 11 % (20-45) L Monocytes % (Manual) 12 % (1-10) H Eosinophils % (Manual) 5 % (0-3) H Basophils % (Manual) 0 % (0-2) Myelocytes % 1 % (0-0) H Band Neutrophils 0 % (0-8) Platelet Estimate Adequate Platelet Morphology Normal Sodium Level 139 MMOL/L (136-145) Potassium Level 3.7 MMOL/L (3.5-5.1) Chloride Level 106 MMOL/L (98-107) Carbon Dioxide Level 23 MMOL/L (21-32) Anion Gap 10 mmol/L (5-15) Blood Urea Nitrogen 28 mg/dL (7-18) H Creatinine 1.3 MG/DL (0.55-1.30) Estimat Glomerular Filtration Rate 54.7 mL/min (>60) Glucose Level 113 MG/DL (74-106) H Calcium Level 9.1 MG/DL (8.5-10.1) Current Medications Medications (Trade) Dose Ordered Sig/Wanda Route PRN Reason Start Time Stop Time Status Last Admin Dose Admin Acetaminophen (Tylenol) 650 mg Q4H PRN ORAL FEVER 03/26/18 07:30 04/25/18 07:29 03/27/18 08:23 Albuterol/ Ipratropium (Albuterol/ Ipratropium) 3 ml Q4H PRN HHN Shortness of Breath 03/26/18 07:30 03/31/18 07:29 Chlorhexidine Gluconate (Jasmin-Hex 2%) 1 applic DAILY@2000 TOPIC 03/28/18 20:00 04/27/18 19:59 Dextrose (Dextrose 50%) 25 ml STAT PRN IV Hypoglycemia 03/26/18 07:30 04/25/18 07:29 Dextrose (Dextrose 50%) 50 ml STAT PRN IV Hypoglycemia 03/26/18 08:30 04/25/18 08:29 Heparin Sodium (Porcine) (Heparin 5000 units/ml) 5,000 units EVERY 12 HOURS SUBQ 03/26/18 09:00 04/25/18 08:59 03/27/18 08:24 Heparin Sodium/ Sodium Chloride (Heparin 2000 units/Ns 1000ml premix) 2,000 unit ONCE PRN INJ for picc line placement 03/28/18 10:00 03/30/18 09:59 Levothyroxine Sodium (Synthroid) 50 mcg DAILY GT 03/26/18 09:00 04/25/18 08:59 03/28/18 09:16 Lidocaine HCl (Xylocaine 1% 30ml) 30 ml ONCE PRN INJ for picc line placement 03/28/18 10:00 03/30/18 09:59 Lorazepam (Ativan 2mg/ml 1ml) 2 mg Q2H PRN IV For Anxiety 03/26/18 07:30 04/02/18 07:29 Morphine Sulfate (Morphine Sulfate) 4 mg Q4H PRN IVP Severe Pain (Pain Scale 7-10) 03/26/18 07:30 04/02/18 07:29 Ondansetron HCl (Zofran) 4 mg Q6H PRN IVP Nausea & Vomiting 03/26/18 07:30 04/25/18 07:29 Pantoprazole (Protonix) 40 mg DAILY IV 03/26/18 09:00 04/25/18 08:59 03/28/18 09:17 Piperacillin Sod/ Tazobactam Sod 3.375 gm/Dextrose 110 ml @ 27.5 mls/hr EVERY 8 HOURS IVPB 03/26/18 14:00 03/31/18 13:59 03/28/18 13:52 Polyethylene Glycol (Miralax) 17 gm DAILYPRN PRN ORAL Constipation 03/26/18 07:30 04/25/18 07:29 Sucralfate (Carafate) 1 gm FOUR TIMES A DAY GT 03/26/18 09:00 04/25/18 08:59 03/28/18 13:00 Vancomycin HCl (Vanco rx to dose) 1 ea DAILY PRN MISC Per rx protocol 03/27/18 12:15 04/26/18 12:14 Vancomycin HCl 500 mg/Dextrose 110 ml @ 110 mls/hr Q12H IVPB 03/28/18 13:00 04/02/18 12:59 03/28/18 13:00 Zinc Sulfate (Zinc Sulfate) 220 mg DAILY ORAL 03/26/18 09:00 04/25/18 08:59 03/28/18 09:17 Lisy Lai M.D. Mar 28, 2018 14:32
[2018-03-28] MEDS: cefTRIAXone 1 GM in D5W 55 ML IVPB SCH (15:07)
[2018-03-28 16:19] VITALS: BP 144/78
--- NOTE | 2018-03-28 16:28 | General Progress Note ---
Assessment/Plan Problem List: (1) Edema ICD Codes: R60.9 - Edema, unspecified SNOMED: 480072891, 399216153 (2) Anemia ICD Codes: D64.9 - Anemia, unspecified SNOMED: 543649894 (3) HTN (hypertension) ICD Codes: I10 - Essential (primary) hypertension SNOMED: 45462564 (4) Diabetes ICD Codes: E11.9 - Type 2 diabetes mellitus without complications SNOMED: 89359673 (5) Malnutrition ICD Codes: E46 - Unspecified protein-calorie malnutrition SNOMED: 78092145 (6) Anemia ICD Codes: D64.9 - Anemia, unspecified SNOMED: 969035833 (7) UTI (urinary tract infection) ICD Codes: N39.0 - Urinary tract infection, site not specified SNOMED: 72711350 (8) Sepsis ICD Codes: A41.9 - Sepsis SNOMED: 96202698 (9) Respiratory failure, [id number] ICD Codes: J96.20 - Respiratory failure, [id number] SNOMED: 51892049 Status: unchanged Assessment/Plan vent abx bp bs control transfuse cbc bmp am Subjective Constitutional: Reports: weakness Allergies: Coded Allergies: NO KNOWN DRUG ALLERGIES (Verified Allergy, Unknown, 09/11/16) All Systems: reviewed and negative except above Subjective trach vent asleep Objective Last 24 Hour Vital Signs Date Time Temp Pulse Resp B/P (MAP) Pulse Ox O2 Delivery O2 Flow Rate FiO2 03/28/18 16:19 97.7 94 18 144/78 (100) 100 97.7 03/28/18 16:18 95 03/28/18 15:23 76 21 40 03/28/18 13:02 77 17 40 03/28/18 12:06 30 03/28/18 12:00 98.9 85 18 128/78 (95) 100 98.9 03/28/18 12:00 Mechanical Ventilator 03/28/18 12:00 83 03/28/18 12:00 30 03/28/18 11:29 75 16 40 03/28/18 09:15 74 17 40 03/28/18 08:00 Mechanical Ventilator 03/28/18 08:00 86 03/28/18 08:00 98.5 88 20 122/82 (95) 100 98.5 03/28/18 08:00 30 03/28/18 07:08 76 18 40 03/28/18 05:24 71 18 40 03/28/18 04:00 Mechanical Ventilator 03/28/18 04:00 30 03/28/18 04:00 84 03/28/18 03:42 98.1 89 20 139/77 (97) 100 98.1 03/28/18 03:30 74 18 40 03/28/18 02:23 77 03/28/18 01:30 75 18 40 03/28/18 00:00 Mechanical Ventilator 03/28/18 00:00 30 03/28/18 00:00 98.8 98 18 152/65 (94) 98 98.8 03/27/18 23:28 78 16 40 03/27/18 20:43 75 19 40 03/27/18 20:00 71 03/27/18 20:00 Mechanical Ventilator 03/27/18 20:00 98.1 73 20 138/52 (80) 100 98.1 03/27/18 20:00 30 03/27/18 19:30 77 20 40 03/27/18 17:10 79 24 40 Intake and Output 03/27/18 03/28/18 19:00 07:00 Intake Total 692.5 ml 847.5 ml Output Total 50 ml 250 ml Balance 642.5 ml 597.5 ml Intake Free Water 100 ml IV Total 302.5 ml 247.5 ml Tube Feeding 360 ml 440 ml Other 30 ml 60 ml Output Urine Total 50 ml 250 ml # Voids 2 Laboratory Tests 03/28/18 03:45: White Blood Count 9.3, Red Blood Count 2.90L, Hemoglobin 7.7L, Hematocrit 24.3L , Mean Corpuscular Volume 84, Mean Corpuscular Hemoglobin 26.5L, Mean Corpuscular Hemoglobin Concent 31.6L, Red Cell Distribution Width 14.6, Platelet Count 284, Mean Platelet Volume 7.3, Neutrophils (%) (Auto) , Lymphocytes (%) (Auto) , Monocytes (%) (Auto) , Eosinophils (%) (Auto) , Basophils (%) (Auto) , Differential Total Cells Counted 100, Neutrophils % ( Manual) 71, Lymphocytes % (Manual) 11L, Monocytes % (Manual) 12H, Eosinophils % (Manual) 5H, Basophils % (Manual) 0, Myelocytes % 1H, Band Neutrophils 0, Platelet Estimate Adequate, Platelet Morphology Normal, Sodium Level 139, Potassium Level 3.7, Chloride Level 106, Carbon Dioxide Level 23, Anion Gap 10, Blood Urea Nitrogen 28H, Creatinine 1.3, Estimat Glomerular Filtration Rate 54.7 , Glucose Level 113H, Calcium Level 9.1 Height (Feet): 6 Height (Inches): 1.00 Weight (Pounds): 135 General Appearance: lethargic EENT: normal ENT inspection Neck: normal alignment Cardiovascular: normal peripheral pulses, normal rate, regular rhythm Respiratory/Chest: chest wall non-tender, lungs clear, normal breath sounds Abdomen: normal bowel sounds, non tender, soft Extremities: normal inspection Edema: 1+ Arm (L), 1+ Arm (R), 1+ Leg (L), 1+ Leg (R), 1+ Pedal (L), 1+ Pedal ( R), 1+ Generalized Neurologic: motor weakness Skin: normal pigmentation, warm/dry Gato Viveros DO Mar 28, 2018 16:28
[2018-03-28 20:00] VITALS: BP 126/78
[2018-03-28] MEDS: Dyna-Hex 2% Top Sol 2oz TOPIC SCH (20:09)
[2018-03-29] VITALS: BP 132/68
[2018-03-29 04:00] VITALS: BP 155/81
[2018-03-29 05:43] LABS: BASOPHILS % (AUTO) 0.7 % (0.0-2.0); EOSINOPHILS % (AUTO) 6.7 % (0.0-3.0); LYMPHOCYTES % (AUTO) 18.3 % (20.0-45.0); MEAN CORPUSCULAR VOLUME 83 FL (80-99); MONOCYTES % (AUTO) 10.2 % (1.0-10.0); NEUTROPHILS % (AUTO) 64.1 % (45.0-75.0); PLATELET COUNT 282 K/UL (150-450); RED BLOOD COUNT 3.39 M/UL (4.70-6.10); WHITE BLOOD COUNT 6.9 K/UL (4.8-10.8)
[2018-03-29 06:05] LABS: ALANINE AMINOTRANSFERASE 22 U/L (12-78); ALBUMIN 2.7 G/DL (3.4-5.0); ALBUMIN/GLOBULIN RATIO 0.6 (1.0-2.7); ALKALINE PHOSPHATASE 124 U/L (46-116); ANION GAP 8 mmol/L (5-15); ASPARTATE AMINO TRANSFERASE 12 U/L (15-37); BILIRUBIN,TOTAL 0.2 MG/DL (0.2-1.0); BLOOD UREA NITROGEN 21 mg/dL (7-18); CARBON DIOXIDE 24 MMOL/L (21-32); CHLORIDE 106 MMOL/L (98-107); PHOSPHORUS 2.2 MG/DL (2.5-4.9); POTASSIUM 3.9 MMOL/L (3.5-5.1); SODIUM 138 MMOL/L (136-145)
[2018-03-29 08:28] VITALS: BP 157/56
[2018-03-29] MEDS: Sucralfate 1gm tab GT SCH ×4 (09:18→21:51)
[2018-03-29] MEDS: Zinc Sulfate 220mg cap ORAL SCH (09:18)
[2018-03-29] MEDS: Pantoprazole Inj IV SCH (09:18)
[2018-03-29] MEDS: Heparin 5000 units/ml inj SUBQ SCH ×2 (09:23→21:52)
[2018-03-29] MEDS ORDERED: Tubing IV Secondary IV ONE ×2 (10:30→16:28)
[2018-03-29] MEDS ORDERED: Sterile Water Irrig 1000ml IRRIG ONE (10:30)
[2018-03-29] MEDS ORDERED: NS 500ML ONE ×2 (10:30→16:28)
--- NOTE | 2018-03-29 10:33 | Pulmonolgy Critical Care Note ---
Critical Care - Asmt/Plan Problems: (1) Upper GI bleed (2) Chronic respiratory failure (3) Severe protein-calorie malnutrition (4) Psychosis (5) Debility (6) Dementia (7) Alzheimer's dementia (8) Feeding by G-tube Respiratory: monitor respiratory rate, adjust FIO2, CXR Cardiac: continue to monitor HR/BP Renal: F/U I&O Infectious Disease: continue antibiotics Gastrointestinal: continue feedings/current rate Endocrine: monitor blood sugar Hematologic: monitor H/H, transfuse if hgb<8.5 Neurologic: PRN Ativan, keep patient comfortable Prophylaxis: Protonix Notes Reviewed: skidder runner, 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 with: nurses, consultants, director casemodeling agency manager - Objective Last 24 Hour Vital Signs Date Time Temp Pulse Resp B/P (MAP) Pulse Ox O2 Delivery O2 Flow Rate FiO2 03/29/18 08:48 85 19 30 03/29/18 08:28 96.6 83 16 157/56 (89) 100 96.6 03/29/18 06:45 75 16 30 03/29/18 05:00 79 16 30 03/29/18 04:00 Mechanical Ventilator 03/29/18 04:00 97.2 75 14 155/81 (105) 100 97.2 03/29/18 03:43 71 03/29/18 02:50 83 21 30 03/29/18 01:16 72 19 30 03/29/18 00:00 99.1 63 16 132/68 (89) 100 99.1 03/29/18 00:00 Mechanical Ventilator 03/28/18 23:53 71 03/28/18 22:31 77 17 30 03/28/18 20:39 71 18 30 03/28/18 20:00 Mechanical Ventilator 03/28/18 20:00 96.3 86 20 126/78 (94) 100 96.3 03/28/18 19:52 68 03/28/18 19:17 84 17 30 03/28/18 16:55 78 20 40 03/28/18 16:19 97.7 94 18 144/78 (100) 100 97.7 03/28/18 16:18 95 03/28/18 16:00 30 03/28/18 16:00 Mechanical Ventilator 03/28/18 15:23 76 21 40 03/28/18 13:02 77 17 40 03/28/18 12:06 30 7/19/18 12:00 98.9 85 18 128/78 (95) 100 98.9 03/28/18 12:00 Mechanical Ventilator 03/28/18 12:00 83 03/28/18 12:00 30 03/28/18 11:29 75 16 40 Status: awake Condition: critical HEENT: atraumatic Lungs: clear Abdomen: soft, non-tender Extremities: no C/C/E Micro: Microbiology Date/Time Source Procedure Growth Status 03/27/18 12:15 Blood Blood Culture - Preliminary NO GROWTH AFTER 24 HOURS Resulted 03/27/18 12:00 Blood Blood Culture - Preliminary NO GROWTH AFTER 24 HOURS Resulted 03/26/18 12:45 Sputum Gram Stain - Final Complete 03/26/18 12:45 Sputum Culture - Final A.baumanii Complx - Mdr Complete Accucheck: 171 Critical Care - Subjective ROS Limited/Unobtainable: No Condition: critical EKG Rhythm: Sinus Bradycardia FI02: 30 Vent Support Breath Rate: 16 Vent Support Mode: AC Vent Tidal Volume: 600 Sputum Amount: Moderate PEEP: 5.0 PIP: 31 Tube Feeding Amount: 55 I&O: Intake and Output 03/28/18 03/29/18 19:00 07:00 Intake Total 382.5 ml 720 ml Output Total 500 ml 400 ml Balance -117.5 ml 320 ml Intake Free Water 100 ml 60 ml IV Total 82.5 ml Tube Feeding 200 ml 660 ml Output Urine Total 500 ml 400 ml Labs: Laboratory Tests Test 03/29/18 03:40 White Blood Count 6.9 K/UL (4.8-10.8) Red Blood Count 3.39 M/UL (4.70-6.10) L Hemoglobin 9.0 G/DL (14.2-18.0) L Hematocrit 28.0 % (42.0-52.0) L Mean Corpuscular Volume 83 FL (80-99) Mean Corpuscular Hemoglobin 26.5 PG (27.0-31.0) L Mean Corpuscular Hemoglobin Concent 32.0 G/DL (32.0-36.0) Red Cell Distribution Width 14.0 % (11.6-14.8) Platelet Count 282 K/UL (150-450) Mean Platelet Volume 7.5 FL (6.5-10.1) Neutrophils (%) (Auto) 64.1 % (45.0-75.0) Lymphocytes (%) (Auto) 18.3 % (20.0-45.0) L Monocytes (%) (Auto) 10.2 % (1.0-10.0) H Eosinophils (%) (Auto) 6.7 % (0.0-3.0) H Basophils (%) (Auto) 0.7 % (0.0-2.0) Prothrombin Time 10.5 SEC (9.30-11.50) Prothromb Time International Ratio 1.0 (0.9-1.1) Activated Partial Thromboplast Time 29 SEC (23-33) Sodium Level 138 MMOL/L (136-145) Potassium Level 3.9 MMOL/L (3.5-5.1) Chloride Level 106 MMOL/L (98-107) Carbon Dioxide Level 24 MMOL/L (21-32) Anion Gap 8 mmol/L (5-15) Blood Urea Nitrogen 21 mg/dL (7-18) H Creatinine 1.0 MG/DL (0.55-1.30) Estimat Glomerular Filtration Rate > 60 mL/min (>60) Glucose Level 109 MG/DL (74-106) H Calcium Level 9.0 MG/DL (8.5-10.1) Phosphorus Level 2.2 MG/DL (2.5-4.9) L Magnesium Level 1.8 MG/DL (1.8-2.4) Total Bilirubin 0.2 MG/DL (0.2-1.0) Aspartate Amino Transf (AST/SGOT) 12 U/L (15-37) L Alanine Aminotransferase (ALT/SGPT) 22 U/L (12-78) Alkaline Phosphatase 124 U/L (46-116) H Total Protein 7.3 G/DL (6.4-8.2) Albumin 2.7 G/DL (3.4-5.0) L Globulin 4.6 g/dL Albumin/Globulin Ratio 0.6 (1.0-2.7) L Huma Keating MD Mar 29, 2018 10:33
--- NOTE | 2018-03-29 10:45 | Infectious Diseases Prog Note ---
Assessment/Plan Assessment/Plan Abx: IV Vanco 03/25- Cefepime x1 03/25 Levo x1 03/25 Assessment: Sepsis; improving -likely 2ry to UTI- -u/a wbc tntc, nit neg, leuk +3; ucx E.coli (R cipro, bactrim, Genta; S cefrizone, Ancef) - Bcx 09/13 CONS (likely contaminant); 03/27 Bcx NTD -sp cx MDR ABC, S Colistin/Polymixin B (likely colonizer) -CXR: No acute findings Leukocytosis (2ry to UTI, GIB also contributing); resolved Recurrent UGIB -History of upper GI bleed. -hx severe esophagitis s/p multiple EGDs REcent UTI, 12/2017, s/p Rx - ucx >100k P stuarti (S Ceftriaxone, Cefepime; R Genta, levo/cipro, bactrim) - History of chronic anemia status post PEG and bedbound. - Chronic respiratory failure. -. Status post trach and PEG. -. Functional quadriplegia. -. Encephalopathy. -. CAD. -. CHF. -. Hypothyroidism. -. Diabetes. -. Bipolar disorder/schizophrenia. -. hx of possible scabies 10/2017 -hx VRE, MRSA colonization Plan: -Continue IV Ceftriaxone abx d #12/15-10 for E.coli UTI -03/28 SP IV Vancomycni #4, Zosyn #3 -01/09 SP Ceftriaxone #10 -01/03 SP Zosyn #4 - 10/17 SP IV Vanco and Cefepime - SP Permethrin cream and ivermectin x1 10/17; 2nd tx 10/24/17 -f/u cx -Monitor CBC/CMP, temperatures -Cdiff if diarrhea -Trach/peg care -wound care/prevention per hospital protocol -Aspiration precautions -GI f/u Thank you for this consultation. Will continue to follow along with you. Discussed with RN. Subjective Allergies: Coded Allergies: NO KNOWN DRUG ALLERGIES (Verified Allergy, Unknown, 09/11/16) Subjective afebrile leukocytosis resolved repeat Bcx NTD Objective Vital Signs Last 24 Hour Vital Signs Date Time Temp Pulse Resp B/P (MAP) Pulse Ox O2 Delivery O2 Flow Rate FiO2 03/29/18 08:48 85 19 30 03/29/18 08:28 96.6 83 16 157/56 (89) 100 96.6 03/29/18 06:45 75 16 30 03/29/18 05:00 79 16 30 03/29/18 04:00 Mechanical Ventilator 03/29/18 04:00 97.2 75 14 155/81 (105) 100 97.2 03/29/18 03:43 71 03/29/18 02:50 83 21 30 03/29/18 01:16 72 19 30 03/29/18 00:00 99.1 63 16 132/68 (89) 100 99.1 03/29/18 00:00 Mechanical Ventilator 03/28/18 23:53 71 03/28/18 22:31 77 17 30 03/28/18 20:39 71 18 30 03/28/18 20:00 Mechanical Ventilator 03/28/18 20:00 96.3 86 20 126/78 (94) 100 96.3 03/28/18 19:52 68 03/28/18 19:17 84 17 30 03/28/18 16:55 78 20 40 03/28/18 16:19 97.7 94 18 144/78 (100) 100 97.7 03/28/18 16:18 95 03/28/18 16:00 30 03/28/18 16:00 Mechanical Ventilator 03/28/18 15:23 76 21 40 03/28/18 13:02 77 17 40 03/28/18 12:06 30 03/28/18 12:00 98.9 85 18 128/78 (95) 100 98.9 03/28/18 12:00 Mechanical Ventilator 03/28/18 12:00 83 03/28/18 12:00 30 03/28/18 11:29 75 16 40 Height (Feet): 6 Height (Inches): 1.00 Weight (Pounds): 135 Objective General Appearance: cachetic Lines, tubes and drains: peripheral Neck: normal alignment Respiratory/Chest: chest wall non-tender, lungs clear Cardiovascular/Chest: normal peripheral pulses, normal rate Abdomen: normal bowel sounds, non tender Genitourinary/Rectal: normal genital exam, heme negative stool, normal prostate exam Extremities: non-tender Skin Exam: normal pigmentation Neurologic: auricular acupuncturist II-XII grossly normal, motor weakness Microbiology Date/Time Source Procedure Growth Status 03/27/18 12:15 Blood Blood Culture - Preliminary NO GROWTH AFTER 24 HOURS Resulted 03/27/18 12:00 Blood Blood Culture - Preliminary NO GROWTH AFTER 24 HOURS Resulted 03/26/18 12:45 Sputum Gram Stain - Final Complete 03/26/18 12:45 Sputum Culture - Final A.baumanii Complx - Mdr Complete Laboratory Tests Test 03/29/18 03:40 White Blood Count 6.9 K/UL (4.8-10.8) Red Blood Count 3.39 M/UL (4.70-6.10) L Hemoglobin 9.0 G/DL (14.2-18.0) L Hematocrit 28.0 % (42.0-52.0) L Mean Corpuscular Volume 83 FL (80-99) Mean Corpuscular Hemoglobin 26.5 PG (27.0-31.0) L Mean Corpuscular Hemoglobin Concent 32.0 G/DL (32.0-36.0) Red Cell Distribution Width 14.0 % (11.6-14.8) Platelet Count 282 K/UL (150-450) Mean Platelet Volume 7.5 FL (6.5-10.1) Neutrophils (%) (Auto) 64.1 % (45.0-75.0) Lymphocytes (%) (Auto) 18.3 % (20.0-45.0) L Monocytes (%) (Auto) 10.2 % (1.0-10.0) H Eosinophils (%) (Auto) 6.7 % (0.0-3.0) H Basophils (%) (Auto) 0.7 % (0.0-2.0) Prothrombin Time 10.5 SEC (9.30-11.50) Prothromb Time International Ratio 1.0 (0.9-1.1) Activated Partial Thromboplast Time 29 SEC (23-33) Sodium Level 138 MMOL/L (136-145) Potassium Level 3.9 MMOL/L (3.5-5.1) Chloride Level 106 MMOL/L (98-107) Carbon Dioxide Level 24 MMOL/L (21-32) Anion Gap 8 mmol/L (5-15) Blood Urea Nitrogen 21 mg/dL (7-18) H Creatinine 1.0 MG/DL (0.55-1.30) Estimat Glomerular Filtration Rate > 60 mL/min (>60) Glucose Level 109 MG/DL (74-106) H Calcium Level 9.0 MG/DL (8.5-10.1) Phosphorus Level 2.2 MG/DL (2.5-4.9) L Magnesium Level 1.8 MG/DL (1.8-2.4) Total Bilirubin 0.2 MG/DL (0.2-1.0) Aspartate Amino Transf (AST/SGOT) 12 U/L (15-37) L Alanine Aminotransferase (ALT/SGPT) 22 U/L (12-78) Alkaline Phosphatase 124 U/L (46-116) H Total Protein 7.3 G/DL (6.4-8.2) Albumin 2.7 G/DL (3.4-5.0) L Globulin 4.6 g/dL Albumin/Globulin Ratio 0.6 (1.0-2.7) L Current Medications Medications (Trade) Dose Ordered Sig/Wanda Route PRN Reason Start Time Stop Time Status Last Admin Dose Admin Acetaminophen (Tylenol) 650 mg Q4H PRN ORAL FEVER 03/26/18 07:30 04/25/18 07:29 03/27/18 08:23 Albuterol/ Ipratropium (Albuterol/ Ipratropium) 3 ml Q4H PRN HHN Shortness of Breath 03/26/18 07:30 03/31/18 07:29 Ceftriaxone Sodium 1 gm/ Dextrose 55 ml @ 110 mls/hr Q24H IVPB 03/28/18 15:00 04/04/18 14:59 03/28/18 15:07 Chlorhexidine Gluconate (Jasmin-Hex 2%) 1 applic DAILY@2000 TOPIC 03/28/18 20:00 04/27/18 19:59 03/28/18 20:09 Dextrose (Dextrose 50%) 25 ml STAT PRN IV Hypoglycemia 03/26/18 07:30 04/25/18 07:29 Dextrose (Dextrose 50%) 50 ml STAT PRN IV Hypoglycemia 03/26/18 08:30 04/25/18 08:29 Heparin Sodium (Porcine) (Heparin 5000 units/ml) 5,000 units EVERY 12 HOURS SUBQ 03/26/18 09:00 04/25/18 08:59 03/29/18 09:23 Heparin Sodium/ Sodium Chloride (Heparin 2000 units/Ns 1000ml premix) 2,000 unit ONCE PRN INJ for picc line placement 03/28/18 10:00 03/30/18 09:59 Levothyroxine Sodium (Synthroid) 50 mcg DAILY GT 03/26/18 09:00 04/25/18 08:59 03/29/18 09:18 Lidocaine HCl (Xylocaine 1% 30ml) 30 ml ONCE PRN INJ for picc line placement 03/28/18 10:00 03/30/18 09:59 Lorazepam (Ativan 2mg/ml 1ml) 2 mg Q2H PRN IV For Anxiety 03/26/18 07:30 04/02/18 07:29 Morphine Sulfate (Morphine Sulfate) 4 mg Q4H PRN IVP Severe Pain (Pain Scale 7-10) 03/26/18 07:30 04/02/18 07:29 Ondansetron HCl (Zofran) 4 mg Q6H PRN IVP Nausea & Vomiting 03/26/18 07:30 04/25/18 07:29 Pantoprazole (Protonix) 40 mg DAILY IV 03/26/18 09:00 04/25/18 08:59 03/29/18 09:18 Polyethylene Glycol (Miralax) 17 gm DAILYPRN PRN ORAL Constipation 03/26/18 07:30 04/25/18 07:29 Sucralfate (Carafate) 1 gm FOUR TIMES A DAY GT 03/26/18 09:00 04/25/18 08:59 03/29/18 09:18 Zinc Sulfate (Zinc Sulfate) 220 mg DAILY ORAL 03/26/18 09:00 04/25/18 08:59 03/29/18 09:18 Lisy Lai M.D. Mar 29, 2018 10:45
[2018-03-29 12:00] VITALS: BP 136/67
--- NOTE | 2018-03-29 12:23 | General Progress Note ---
Assessment/Plan Problem List: (1) Edema ICD Codes: R60.9 - Edema, unspecified SNOMED: 635119889, 474754298 (2) Anemia ICD Codes: D64.9 - Anemia, unspecified SNOMED: 533162475 (3) HTN (hypertension) ICD Codes: I10 - Essential (primary) hypertension SNOMED: 06681310 (4) Diabetes ICD Codes: E11.9 - Type 2 diabetes mellitus without complications SNOMED: 23366001 (5) Malnutrition ICD Codes: E46 - Unspecified protein-calorie malnutrition SNOMED: 62716582 (6) Anemia ICD Codes: D64.9 - Anemia, unspecified SNOMED: 485734920 (7) UTI (urinary tract infection) ICD Codes: N39.0 - Urinary tract infection, site not specified SNOMED: 68994826 (8) Sepsis ICD Codes: A41.9 - Sepsis SNOMED: 47007851 (9) Respiratory failure, [id number] ICD Codes: J96.20 - Respiratory failure, [id number] SNOMED: 26208085 Status: unchanged Assessment/Plan vent abx bp bs control transfuse cbc bmp am promise ltach eval Subjective Constitutional: Reports: weakness Allergies: Coded Allergies: NO KNOWN DRUG ALLERGIES (Verified Allergy, Unknown, 09/11/16) All Systems: reviewed and negative except above Subjective trach vent asleep Objective Last 24 Hour Vital Signs Date Time Temp Pulse Resp B/P (MAP) Pulse Ox O2 Delivery O2 Flow Rate FiO2 03/29/18 10:51 79 17 30 03/29/18 08:48 85 19 30 03/29/18 08:28 96.6 83 16 157/56 (89) 100 96.6 03/29/18 06:45 75 16 30 03/29/18 05:00 79 16 30 03/29/18 04:00 Mechanical Ventilator 03/29/18 04:00 97.2 75 14 155/81 (105) 100 97.2 03/29/18 03:43 71 03/29/18 02:50 83 21 30 03/29/18 01:16 72 19 30 03/29/18 00:00 99.1 63 16 132/68 (89) 100 99.1 03/29/18 00:00 Mechanical Ventilator 03/28/18 23:53 71 03/28/18 22:31 77 17 30 03/28/18 20:39 71 18 30 03/28/18 20:00 Mechanical Ventilator 03/28/18 20:00 96.3 86 20 126/78 (94) 100 96.3 03/28/18 19:52 68 03/28/18 19:17 84 17 30 03/28/18 16:55 78 20 40 03/28/18 16:19 97.7 94 18 144/78 (100) 100 97.7 03/28/18 16:18 95 03/28/18 16:00 30 03/28/18 16:00 Mechanical Ventilator 03/28/18 15:23 76 21 40 03/28/18 13:02 77 17 40 Intake and Output 03/28/18 03/29/18 19:00 07:00 Intake Total 382.5 ml 720 ml Output Total 500 ml 400 ml Balance -117.5 ml 320 ml Intake Free Water 100 ml 60 ml IV Total 82.5 ml Tube Feeding 200 ml 660 ml Output Urine Total 500 ml 400 ml Laboratory Tests 03/29/18 03:40: White Blood Count 6.9, Red Blood Count 3.39L, Hemoglobin 9.0L, Hematocrit 28.0L , Mean Corpuscular Volume 83, Mean Corpuscular Hemoglobin 26.5L, Mean Corpuscular Hemoglobin Concent 32.0, Red Cell Distribution Width 14.0, Platelet Count 282, Mean Platelet Volume 7.5, Neutrophils (%) (Auto) 64.1, Lymphocytes (% ) (Auto) 18.3L, Monocytes (%) (Auto) 10.2H, Eosinophils (%) (Auto) 6.7H, Basophils (%) (Auto) 0.7, Prothrombin Time 10.5, Prothromb Time International Ratio 1.0, Activated Partial Thromboplast Time 29, Sodium Level 138, Potassium Level 3.9, Chloride Level 106, Carbon Dioxide Level 24, Anion Gap 8, Blood Urea Nitrogen 21H, Creatinine 1.0, Estimat Glomerular Filtration Rate > 60, Glucose Level 109H, Calcium Level 9.0, Phosphorus Level 2.2L, Magnesium Level 1.8, Total Bilirubin 0.2, Aspartate Amino Transf (AST/SGOT) 12L, Alanine Aminotransferase (ALT/SGPT) 22, Alkaline Phosphatase 124H, Total Protein 7.3, Albumin 2.7L, Globulin 4.6, Albumin/Globulin Ratio 0.6L Height (Feet): 6 Height (Inches): 1.00 Weight (Pounds): 135 General Appearance: lethargic EENT: normal ENT inspection Neck: normal alignment Cardiovascular: normal peripheral pulses, normal rate, regular rhythm Respiratory/Chest: chest wall non-tender, lungs clear, normal breath sounds Abdomen: normal bowel sounds, non tender, soft Extremities: normal inspection Edema: no edema noted Arm (L), no edema noted Arm (R), no edema noted Leg (L), no edema noted Leg (R), no edema noted Pedal (L), no edema noted Pedal (R), no edema noted Generalized Neurologic: motor weakness Skin: normal pigmentation, warm/dry Gato Viveros DO Mar 29, 2018 12:23
[2018-03-29] MEDS: cefTRIAXone 1 GM in D5W 55 ML IVPB SCH (15:26)
[2018-03-29 16:05] VITALS: BP 156/81
[2018-03-29] MEDS ORDERED: Tubing Blood Filter IV ONE (16:28)
[2018-03-29 20:00] VITALS: BP 133/76
[2018-03-29] MEDS: Dyna-Hex 2% Top Sol 2oz TOPIC SCH (21:53)
[2018-03-30] VITALS: BP 144/87
[2018-03-30 04:00] VITALS: BP 138/72
[2018-03-30 05:31] LABS: BASOPHILS % (AUTO) 0.5 % (0.0-2.0); EOSINOPHILS % (AUTO) 8.2 % (0.0-3.0); HEMATOCRIT 29.4 % (42.0-52.0); HEMOGLOBIN 9.4 G/DL (14.2-18.0); LYMPHOCYTES % (AUTO) 27.1 % (20.0-45.0); MEAN CORPUSCULAR VOLUME 83 FL (80-99); MONOCYTES % (AUTO) 9.4 % (1.0-10.0); NEUTROPHILS % (AUTO) 54.8 % (45.0-75.0); PLATELET COUNT 301 K/UL (150-450); RED BLOOD COUNT 3.56 M/UL (4.70-6.10); RED CELL DISTRIBUTION WIDTH 13.8 % (11.6-14.8); WHITE BLOOD COUNT 7.3 K/UL (4.8-10.8)
[2018-03-30 05:57] LABS: ANION GAP 7 mmol/L (5-15); BLOOD UREA NITROGEN 18 mg/dL (7-18); CALCIUM 9.2 MG/DL (8.5-10.1); CARBON DIOXIDE 25 MMOL/L (21-32); CHLORIDE 105 MMOL/L (98-107); POTASSIUM 3.8 MMOL/L (3.5-5.1); SODIUM 137 MMOL/L (136-145)
--- NOTE | 2018-03-30 07:15 | General Progress Note ---
Assessment/Plan Problem List: (1) Edema ICD Codes: R60.9 - Edema, unspecified SNOMED: 323286183, 091355315 (2) Anemia ICD Codes: D64.9 - Anemia, unspecified SNOMED: 220135575 (3) HTN (hypertension) ICD Codes: I10 - Essential (primary) hypertension SNOMED: 60060755 (4) Diabetes ICD Codes: E11.9 - Type 2 diabetes mellitus without complications SNOMED: 80104681 (5) Malnutrition ICD Codes: E46 - Unspecified protein-calorie malnutrition SNOMED: 72886621 (6) Anemia ICD Codes: D64.9 - Anemia, unspecified SNOMED: 007485231 (7) UTI (urinary tract infection) ICD Codes: N39.0 - Urinary tract infection, site not specified SNOMED: 39781595 (8) Sepsis ICD Codes: A41.9 - Sepsis SNOMED: 98165536 (9) Respiratory failure, ynwdy-iw-azcvjrz ICD Codes: J96.20 - Respiratory failure, bwlqx-ku-giffpcy SNOMED: 59864285 Status: unchanged Assessment/Plan vent abx bp bs control transfuse cbc bmp am dc to promise ltach if clear Subjective Constitutional: Reports: weakness Allergies: Coded Allergies: NO KNOWN DRUG ALLERGIES (Verified Allergy, Unknown, 09/11/16) All Systems: reviewed and negative except above Subjective trach vent asleep Objective Last 24 Hour Vital Signs Date Time Temp Pulse Resp B/P (MAP) Pulse Ox O2 Delivery O2 Flow Rate FiO2 03/30/18 04:38 88 18 30 03/30/18 04:00 Mechanical Ventilator 03/30/18 04:00 97.7 66 21 138/72 (94) 99 97.7 03/30/18 03:37 64 03/30/18 03:14 70 16 30 03/30/18 01:00 93 21 30 03/30/18 00:00 Mechanical Ventilator 03/30/18 00:00 97.5 76 25 144/87 (106) 99 97.5 03/29/18 23:37 70 03/29/18 22:48 71 16 30 03/29/18 21:18 74 16 30 03/29/18 20:00 81 03/29/18 20:00 Mechanical Ventilator 03/29/18 20:00 97.5 86 26 133/76 (95) 99 97.5 03/29/18 19:55 83 16 30 03/29/18 17:29 76 16 30 03/29/18 16:08 Mechanical Ventilator 03/29/18 16:05 98.1 68 18 156/81 (106) 98 98.1 03/29/18 16:00 61 03/29/18 15:13 80 16 30 03/29/18 13:04 71 16 30 03/29/18 12:00 30 03/29/18 12:00 98.4 75 16 136/67 (90) 99 98.4 03/29/18 12:00 Mechanical Ventilator 03/29/18 12:00 77 03/29/18 10:51 79 17 30 03/29/18 08:48 85 19 30 03/29/18 08:28 96.6 83 16 157/56 (89) 100 96.6 03/29/18 08:00 78 03/29/18 08:00 30 03/29/18 08:00 Mechanical Ventilator Intake and Output 03/29/18 03/30/18 19:00 07:00 Intake Total 1085 ml 695 ml Output Total 1 ml Balance 1084 ml 695 ml Intake Free Water 300 ml 200 ml Tube Feeding 605 ml 495 ml Other 180 ml Stool Total 1 ml # Voids 2 # Bowel Movements 1 Laboratory Tests 03/30/18 04:00: White Blood Count 7.3, Red Blood Count 3.56L, Hemoglobin 9.4L, Hematocrit 29.4L , Mean Corpuscular Volume 83, Mean Corpuscular Hemoglobin 26.4L, Mean Corpuscular Hemoglobin Concent 32.0, Red Cell Distribution Width 13.8, Platelet Count 301, Mean Platelet Volume 7.5, Neutrophils (%) (Auto) 54.8, Lymphocytes (% ) (Auto) 27.1, Monocytes (%) (Auto) 9.4, Eosinophils (%) (Auto) 8.2H, Basophils (%) (Auto) 0.5, Sodium Level 137, Potassium Level 3.8, Chloride Level 105, Carbon Dioxide Level 25, Anion Gap 7, Blood Urea Nitrogen 18, Creatinine 1.0, Estimat Glomerular Filtration Rate > 60, Glucose Level 125H, Calcium Level 9.2 Height (Feet): 6 Height (Inches): 1.00 Weight (Pounds): 135 General Appearance: lethargic EENT: normal ENT inspection Neck: normal alignment Cardiovascular: normal peripheral pulses, normal rate, regular rhythm Respiratory/Chest: chest wall non-tender, lungs clear, normal breath sounds Abdomen: normal bowel sounds, non tender, soft Extremities: normal inspection Edema: no edema noted Arm (L), no edema noted Arm (R), no edema noted Leg (L), no edema noted Leg (R), no edema noted Pedal (L), no edema noted Pedal (R), no edema noted Generalized Neurologic: motor weakness Skin: normal pigmentation, warm/dry Gato Viveros DO Mar 30, 2018 07:15
[2018-03-30 08:43] VITALS: BP 146/79
[2018-03-30] MEDS: Zinc Sulfate 220mg cap ORAL SCH (08:44)
[2018-03-30] MEDS: Sucralfate 1gm tab GT SCH ×2 (08:44→12:44)
[2018-03-30] MEDS: Pantoprazole Inj IV SCH (08:44)
[2018-03-30] MEDS: Heparin 5000 units/ml inj SUBQ SCH (08:46)
--- NOTE | 2018-03-30 09:37 | Infectious Diseases Prog Note ---
Assessment/Plan Assessment/Plan Assessment: Sepsis; improving -likely 2ry to UTI- -u/a wbc tntc, nit neg, leuk +3; ucx E.coli (R cipro, bactrim, Genta; S cefrizone, Ancef) - Bcx 09/13 CONS (likely contaminant); 03/27 Bcx NTD -sp cx MDR ABC, S Colistin/Polymixin B (likely colonizer) -CXR: No acute findings Leukocytosis (2ry to UTI, GIB also contributing); resolved REcent UTI, 12/2017, s/p Rx - ucx >100k P stuarti (S Ceftriaxone, Cefepime; R Genta, levo/cipro, bactrim) Recurrent UGIB -History of upper GI bleed. -hx severe esophagitis s/p multiple EGDs - History of chronic anemia status post PEG and bedbound. - Chronic respiratory failure. -. Status post trach and PEG. -. Functional quadriplegia. -. Encephalopathy. -. CAD. -. CHF. -. Hypothyroidism. -. Diabetes. -. Bipolar disorder/schizophrenia. -. hx of possible scabies 10/2017 -hx VRE, MRSA colonization Plan: -Continue IV Ceftriaxone abx d # -10 for E.coli UTI -03/28 SP IV Vancomycni #4, Zosyn #3 -01/09 SP Ceftriaxone #10 -01/03 SP Zosyn #4 - 10/17 SP IV Vanco and Cefepime - SP Permethrin cream and ivermectin x1 10/17; 2nd tx 10/24/17 -f/u cx -Monitor CBC/CMP, temperatures -Cdiff if diarrhea -Trach/peg care -wound care/prevention per hospital protocol -Aspiration precautions -GI f/u Subjective Allergies: Coded Allergies: NO KNOWN DRUG ALLERGIES (Verified Allergy, Unknown, 09/11/16) Objective Vital Signs Last 24 Hour Vital Signs Date Time Temp Pulse Resp B/P (MAP) Pulse Ox O2 Delivery O2 Flow Rate FiO2 03/30/18 09:20 77 16 30 03/30/18 08:43 97.9 72 18 146/79 (101) 100 97.9 03/30/18 08:00 30 03/30/18 08:00 Mechanical Ventilator 03/30/18 07:56 80 03/30/18 06:46 81 16 30 7/21/18 04:38 88 18 30 03/30/18 04:00 Mechanical Ventilator 03/30/18 04:00 97.7 66 21 138/72 (94) 99 97.7 03/30/18 03:37 64 03/30/18 03:14 70 16 30 03/30/18 01:00 93 21 30 03/30/18 00:00 Mechanical Ventilator 03/30/18 00:00 97.5 76 25 144/87 (106) 99 97.5 03/29/18 23:37 70 03/29/18 22:48 71 16 30 03/29/18 21:18 74 16 30 03/29/18 20:00 81 03/29/18 20:00 Mechanical Ventilator 03/29/18 20:00 97.5 86 26 133/76 (95) 99 97.5 03/29/18 19:55 83 16 30 03/29/18 17:29 76 16 30 03/29/18 16:08 Mechanical Ventilator 03/29/18 16:05 98.1 68 18 156/81 (106) 98 98.1 03/29/18 16:00 61 03/29/18 15:13 80 16 30 03/29/18 13:04 71 16 30 03/29/18 12:00 30 03/29/18 12:00 98.4 75 16 136/67 (90) 99 98.4 03/29/18 12:00 Mechanical Ventilator 03/29/18 12:00 77 03/29/18 10:51 79 17 30 Height (Feet): 6 Height (Inches): 1.00 Weight (Pounds): 135 Microbiology Date/Time Source Procedure Growth Status 03/27/18 12:15 Blood Blood Culture - Preliminary NO GROWTH AFTER 24 HOURS Resulted 03/27/18 12:00 Blood Blood Culture - Preliminary NO GROWTH AFTER 24 HOURS Resulted Laboratory Tests Test 03/30/18 04:00 White Blood Count 7.3 K/UL (4.8-10.8) Red Blood Count 3.56 M/UL (4.70-6.10) L Hemoglobin 9.4 G/DL (14.2-18.0) L Hematocrit 29.4 % (42.0-52.0) L Mean Corpuscular Volume 83 FL (80-99) Mean Corpuscular Hemoglobin 26.4 PG (27.0-31.0) L Mean Corpuscular Hemoglobin Concent 32.0 G/DL (32.0-36.0) Red Cell Distribution Width 13.8 % (11.6-14.8) Platelet Count 301 K/UL (150-450) Mean Platelet Volume 7.5 FL (6.5-10.1) Neutrophils (%) (Auto) 54.8 % (45.0-75.0) Lymphocytes (%) (Auto) 27.1 % (20.0-45.0) Monocytes (%) (Auto) 9.4 % (1.0-10.0) Eosinophils (%) (Auto) 8.2 % (0.0-3.0) H Basophils (%) (Auto) 0.5 % (0.0-2.0) Sodium Level 137 MMOL/L (136-145) Potassium Level 3.8 MMOL/L (3.5-5.1) Chloride Level 105 MMOL/L (98-107) Carbon Dioxide Level 25 MMOL/L (21-32) Anion Gap 7 mmol/L (5-15) Blood Urea Nitrogen 18 mg/dL (7-18) Creatinine 1.0 MG/DL (0.55-1.30) Estimat Glomerular Filtration Rate > 60 mL/min (>60) Glucose Level 125 MG/DL (74-106) H Calcium Level 9.2 MG/DL (8.5-10.1) Current Medications Medications (Trade) Dose Ordered Sig/Wanda Route PRN Reason Start Time Stop Time Status Last Admin Dose Admin Acetaminophen (Tylenol) 650 mg Q4H PRN ORAL FEVER 03/26/18 07:30 04/25/18 07:29 03/27/18 08:23 Albuterol/ Ipratropium (Albuterol/ Ipratropium) 3 ml Q4H PRN HHN Shortness of Breath 03/26/18 07:30 03/31/18 07:29 Ceftriaxone Sodium 1 gm/ Dextrose 55 ml @ 110 mls/hr Q24H IVPB 03/28/18 15:00 04/04/18 14:59 03/29/18 15:26 Chlorhexidine Gluconate (Jasmin-Hex 2%) 1 applic DAILY@1999 TOPIC 03/28/18 20:00 04/27/18 19:59 03/29/18 21:53 Dextrose (Dextrose 50%) 25 ml STAT PRN IV Hypoglycemia 03/26/18 07:30 04/25/18 07:29 Dextrose (Dextrose 50%) 50 ml STAT PRN IV Hypoglycemia 03/26/18 08:30 04/25/18 08:29 Heparin Sodium (Porcine) (Heparin 5000 units/ml) 5,000 units EVERY 12 HOURS SUBQ 03/26/18 09:00 04/25/18 08:59 03/30/18 08:46 Heparin Sodium/ Sodium Chloride (Heparin 2000 units/Ns 1000ml premix) 2,000 unit ONCE PRN INJ for picc line placement 03/28/18 10:00 03/30/18 09:59 Levothyroxine Sodium (Synthroid) 50 mcg DAILY GT 03/26/18 09:00 04/25/18 08:59 03/30/18 08:44 Lidocaine HCl (Xylocaine 1% 30ml) 30 ml ONCE PRN INJ for picc line placement 03/28/18 10:00 03/30/18 09:59 Lorazepam (Ativan 2mg/ml 1ml) 2 mg Q2H PRN IV For Anxiety 03/26/18 07:30 04/02/18 07:29 Morphine Sulfate (Morphine Sulfate) 4 mg Q4H PRN IVP Severe Pain (Pain Scale 7-10) 03/26/18 07:30 04/02/18 07:29 Ondansetron HCl (Zofran) 4 mg Q6H PRN IVP Nausea & Vomiting 03/26/18 07:30 04/25/18 07:29 Pantoprazole (Protonix) 40 mg DAILY IV 03/26/18 09:00 04/25/18 08:59 03/30/18 08:44 Polyethylene Glycol (Miralax) 17 gm DAILYPRN PRN ORAL Constipation 03/26/18 07:30 04/25/18 07:29 Sucralfate (Carafate) 1 gm FOUR TIMES A DAY GT 03/26/18 09:00 04/25/18 08:59 03/30/18 08:44 Zinc Sulfate (Zinc Sulfate) 220 mg DAILY ORAL 03/26/18 09:00 04/25/18 08:59 03/30/18 08:44 Cesario Daniels MD Mar 30, 2018 09:37
--- NOTE | 2018-03-30 10:39 | Pulmonolgy Critical Care Note ---
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, 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 with: nurses, consultants, keycase assemblerindustrial 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 - Objective Last 24 Hour Vital Signs Date Time Temp Pulse Resp B/P (MAP) Pulse Ox O2 Delivery O2 Flow Rate FiO2 03/30/18 09:20 77 16 30 03/30/18 08:43 97.9 72 18 146/79 (101) 100 97.9 03/30/18 08:00 30 03/30/18 08:00 Mechanical Ventilator 03/30/18 07:56 80 03/30/18 06:46 81 16 30 03/30/18 04:38 88 18 30 03/30/18 04:00 Mechanical Ventilator 03/30/18 04:00 97.7 66 21 138/72 (94) 99 97.7 03/30/18 03:37 64 03/30/18 03:14 70 16 30 03/30/18 01:00 93 21 30 03/30/18 00:00 Mechanical Ventilator 03/30/18 00:00 97.5 76 25 144/87 (106) 99 97.5 03/29/18 23:37 70 03/29/18 22:48 71 16 30 03/29/18 21:18 74 16 30 03/29/18 20:00 81 03/29/18 20:00 Mechanical Ventilator 03/29/18 20:00 97.5 86 26 133/76 (95) 99 97.5 03/29/18 19:55 83 16 30 03/29/18 17:29 76 16 30 03/29/18 16:08 Mechanical Ventilator 03/29/18 16:05 98.1 68 18 156/81 (106) 98 98.1 7/20/18 16:00 61 03/29/18 15:13 80 16 30 03/29/18 13:04 71 16 30 03/29/18 12:00 30 03/29/18 12:00 98.4 75 16 136/67 (90) 99 98.4 03/29/18 12:00 Mechanical Ventilator 03/29/18 12:00 77 03/29/18 10:51 79 17 30 Status: obtunded Condition: critical HEENT: atraumatic Heart: HR/BP stable Abdomen: soft, active bowel sounds Extremities: no C/C/E, edema Decubiti: location Micro: Microbiology Date/Time Source Procedure Growth Status 03/27/18 12:15 Blood Blood Culture - Preliminary NO GROWTH AFTER 48 HOURS Resulted 03/27/18 12:00 Blood Blood Culture - Preliminary NO GROWTH AFTER 48 HOURS Resulted Accucheck: 171 Critical Care - Subjective ROS Limited/Unobtainable: Yes Condition: critical EKG Rhythm: Sinus Rhythm FI02: 30 Vent Support Breath Rate: 16 Vent Support Mode: AC Vent Tidal Volume: 600 Sputum Amount: Large PEEP: 5.0 PIP: 24 Tube Feeding Amount: 55 I&O: Intake and Output 03/29/18 03/30/18 19:00 07:00 Intake Total 1085 ml 750 ml Output Total 1 ml Balance 1084 ml 750 ml Intake Free Water 300 ml 200 ml Tube Feeding 605 ml 550 ml Other 180 ml Stool Total 1 ml # Voids 2 # Bowel Movements 1 Labs: Laboratory Tests Test 03/30/18 04:00 White Blood Count 7.3 K/UL (4.8-10.8) Red Blood Count 3.56 M/UL (4.70-6.10) L Hemoglobin 9.4 G/DL (14.2-18.0) L Hematocrit 29.4 % (42.0-52.0) L Mean Corpuscular Volume 83 FL (80-99) Mean Corpuscular Hemoglobin 26.4 PG (27.0-31.0) L Mean Corpuscular Hemoglobin Concent 32.0 G/DL (32.0-36.0) Red Cell Distribution Width 13.8 % (11.6-14.8) Platelet Count 301 K/UL (150-450) Mean Platelet Volume 7.5 FL (6.5-10.1) Neutrophils (%) (Auto) 54.8 % (45.0-75.0) Lymphocytes (%) (Auto) 27.1 % (20.0-45.0) Monocytes (%) (Auto) 9.4 % (1.0-10.0) Eosinophils (%) (Auto) 8.2 % (0.0-3.0) H Basophils (%) (Auto) 0.5 % (0.0-2.0) Sodium Level 137 MMOL/L (136-145) Potassium Level 3.8 MMOL/L (3.5-5.1) Chloride Level 105 MMOL/L (98-107) Carbon Dioxide Level 25 MMOL/L (21-32) Anion Gap 7 mmol/L (5-15) Blood Urea Nitrogen 18 mg/dL (7-18) Creatinine 1.0 MG/DL (0.55-1.30) Estimat Glomerular Filtration Rate > 60 mL/min (>60) Glucose Level 125 MG/DL (74-106) H Calcium Level 9.2 MG/DL (8.5-10.1) Huma Keating MD Mar 30, 2018 10:39
[2018-03-30 12:00] VITALS: BP 143/69
[2018-03-30] MEDS: cefTRIAXone 1 GM in D5W 55 ML IVPB SCH (12:44)
[2018-03-30 16:00] VITALS: BP 144/85
[2018-03-30] MEDS ORDERED: Sterile Water Irrig 1000ml IRRIG ONE (17:23)
[2018-03-30] MEDS ORDERED: NS 500ML ONE (17:23)
== END 2018-03-30 17:24 | DRG 870 ==
LOC: EDUNIT# 22:22 → EDBD 22:22 → EMR 22:42 → 2W 23:15 → EDBEDREQ 03-26 03:48 → 2W 03-29 20:13
PROC: 5A1955Z Respiratory Ventilation, Greater than 96 Consecutive Hours (ICD-10-PCS; principal; 2018-03-25)
PROC: 02HV33Z Insertion of Infusion Device into Superior Vena Cava, Percutaneous Approach (ICD-10-PCS; 2018-03-28)
PROC: B548ZZA Ultrasonography of Superior Vena Cava, Guidance (ICD-10-PCS; 2018-03-28)
DX: A41.9 Sepsis, unspecified organism (principal); J96.20 Acute and chronic respiratory failure, unspecified whether with hypoxia or hypercapnia; E43 Unspecified severe protein-calorie malnutrition; R53.2 Functional quadriplegia; G93.40 Encephalopathy, unspecified; N39.0 Urinary tract infection, site not specified; Z68.1 Body mass index [BMI] 19.9 or less, adult; K92.2 Gastrointestinal hemorrhage, unspecified; R40.3 Persistent vegetative state; I11.0 Hypertensive heart disease with heart failure; I50.9 Heart failure, unspecified; N28.9 Disorder of kidney and ureter, unspecified; B96.20 Unspecified Escherichia coli [E. coli] as the cause of diseases classified elsewhere; D64.9 Anemia, unspecified; Z93.0 Tracheostomy status; Z93.1 Gastrostomy status; E11.9 Type 2 diabetes mellitus without complications; G30.9 Alzheimer's disease, unspecified; F02.80 Dementia in other diseases classified elsewhere, unspecified severity, without behavioral disturbance, psychotic disturbance, mood disturbance, and anxiety; F20.9 Schizophrenia, unspecified; F31.9 Bipolar disorder, unspecified; I25.10 Atherosclerotic heart disease of native coronary artery without angina pectoris
CPT/HCPCS: 36415; 36569; 36600; 71045; 76937; 80048; 80053; 80069; 80202; 81003; 82550; 82553; 82803; 82962; 83605; 83690; 83735; 83880; 84100; 84484; 85007; 85025; 85610; 85730; 86850; 86900; 86901; 86920; 87040; 87070; 87081; 87086; 87181; 87205; 93005; 93970; 94002; 94003; 94664; 97803; 99285

== ENCOUNTER 2018-05-13 19:03 | Inpatient (IN) | payer MEDICARE ==
[~2018-05-13] VITALS: Ht 165.1 cm; Wt 56.7 kg
[~2018-05-13 19:03] MED LIST changes: +FERROUS SU300 MG/52 GT
[2018-05-13] MEDS ORDERED: Pantoprazole Inj IVP ONE (19:15)
--- NOTE | 2018-05-13 19:45 | Emergency Room Report ---
History of Present Illness General Chief Complaint: Vomiting Source: Medical Record, EMS (Anup Agee MD) Present Illness HPI 67-year-old male presents ED for evaluation. Patient brought in from detention facility for coffee-ground emesis and fever today. Patient is on ventilator with trach. Patient is nonverbal at baseline. Patient had fever today of 101 and was given Tylenol. Afebrile in triage. Patient arrives in no signs of distress. No reported cough. No shortness of breath. No other aggravating relieving factors. No other associated symptoms (Anup Agee MD) Allergies: Coded Allergies: NO KNOWN DRUG ALLERGIES (Verified Allergy, Unknown, 09/11/16) Patient History Past Medical History: DM, asthma, GERD, GI bleed, CVA/TIA, dementia, seizures Past Surgical History: other - trach Pertinent Family History: none Social History: Denies: smoking, alcohol use, drug use Immunizations: UTD Reviewed Nursing Documentation: PMH: Agreed; PSxH: Agreed (Anup Agee MD) Nursing Documentation-PMH Past Medical History: No History, Except For Hx Cardiac Problems: Yes - trach and vent, CVD, anemia, atherosclerotic heart disease, angina Hx Hypertension: Yes - hypothyroidism Hx Asthma: Yes Hx COPD: No Hx Diabetes: Yes - DM II Hx Cancer: No Hx Gastrointestinal Problems: Yes - Gastrostomy, GERD, chonric peptic ulcer Hx Dialysis: Yes - pre renal azotemia, uti Hx Neurological Problems: Yes - dementia Hx Cerebrovascular Accident: Yes Hx Transient Ischemic Attacks: Yes Hx Dementia: Yes Hx Alzheimer's Disease: Yes Hx Parkinson's Disease: Yes Hx Encephalitis: Yes Hx Seizures: Yes Hx Epilepsy: Yes Hx Paralysis: Yes - HEMIPLEGIA Hx Concentration Difficulty: Yes Hx Speech Problem: Yes Hx Aphasia: Yes Hx Weakness: Yes Hx Fatigue: Yes Hx Neurologic Surgery: No Hx Brain Shunt: No (Anup Agee MD) Review of Systems All Other Systems: limited (Anup Agee MD) Physical Exam Vital Signs Date Time Temp Pulse Resp B/P (MAP) Pulse Ox O2 Delivery O2 Flow Rate FiO2 05/13/18 19:04 98.0 107 21 96/52 96 Mechanical Ventilator 5.0 98.1 Sp02 EP Interpretation: reviewed, normal General Appearance: no apparent distress, other - nonverbal Head: normocephalic Eyes: bilateral eye normal inspection, bilateral eye PERRL ENT: normal ENT inspection Neck: full range of motion, supple/symm/no masses, tracheotomy Respiratory: chest non-tender, lungs clear, normal breath sounds, speaking full sentences Cardiovascular #1: regular rate, rhythm, no edema Gastrointestinal: normal bowel sounds, non tender, soft, non-distended, no guarding, no rebound, other - Gtube Rectal: deferred Genitourinary: no CVA tenderness Musculoskeletal: other - contracted bilateral lower extremities Neurologic: other - nonverbal Psychiatric: other - nonverbal Skin: normal inspection Lymphatic: normal inspection (Anup Agee MD) Procedures Central Line Central Line : Consent: Verbal Central Line Lumen: triple Maximal Sterile Barrier Tech: yes cap, yes mask, yes sterile gown, yes sterile gloves, yes large sterile sheet, yes hand hygiene, yes chlorhexidine prep Central Line Postion: femoral (R) Anesthesia: Lidocaine Complications: none Central Line Post Position: sutured, good blood return Attempts: One Patient Tolerated: Well Complications: None (Anup Agee MD) Central Line : Consent: Emergent Central Line Lumen: triple Maximal Sterile Barrier Tech: yes cap, yes mask, yes sterile gown, yes sterile gloves, yes large sterile sheet, yes hand hygiene, yes chlorhexidine prep Central Line Postion: internal jugular (R) Complications: arterial puncture. Halted and pressure applied. Progress Dr. Agee took over inserting the central line into the R femoral area. (John Hunter M.D.) Medical Decision Making Diagnostic Impression: Primary Impression: Upper GI bleed Additional Impressions: Fever Qualified Codes: R50.9 - Fever, unspecified Sepsis Qualified Codes: A41.9 - Sepsis, unspecified organism Tracheostomy dependence UTI (urinary tract infection) Qualified Codes: N39.0 - Urinary tract infection, site not specified ER Course Hospital Course 67-year-old male presenting to ED with hematemesis, fever Differential diagnoses include: Pneumonia, UTI, sepsis, dehydration, UGIB Clinical course Patient placed on stretcher. On cardiac rehab nurse with stable vitals are ED course. After initial history and physical, I ordered labs, IV fluids, EKG, chest x-ray, blood cultures, UA. given protonix, zofran Labs - BUN/Cr elevated, marked leukocytosis, troponins negative, lactate > 3, UA grossly positive for UTI CXR - PNA EKG - sinus tachycardia, no acute ischemic changes interpreted by me Patient has difficult IV access. Multiple peripheral attempts made. Right femoral central line placed. Abx given. given 30cc/kg fluid bolus. Case discussed with and they agreed to admit patient to their service for further care and support I feel this is a highly complex case requiring extensive working including EKG/ Rhythm strip, Xray/CT/US, Blood/urine lab work, repeat exams while in ED, and administration of strong opiates/narcotics for pain control, admission to hospital or close patient follow up. Diagnosis - UGIB, fever, sepsis, tracheostomy dependence, UTI Patient admitted to SDU in serious condition Labs Test 05/13/18 19:45 05/13/18 20:52 05/13/18 21:00 05/13/18 21:40 White Blood Count 40.1 K/UL (4.8-10.8) Red Blood Count 3.61 M/UL (4.70-6.10) Hemoglobin 9.9 G/DL (14.2-18.0) Hematocrit 29.6 % (42.0-52.0) Mean Corpuscular Volume 82 FL (80-99) Mean Corpuscular Hemoglobin 27.6 PG (27.0-31.0) Mean Corpuscular Hemoglobin Concent 33.5 G/DL (32.0-36.0) Red Cell Distribution Width 14.1 % (11.6-14.8) Platelet Count 300 K/UL (150-450) Mean Platelet Volume 7.9 FL (6.5-10.1) Neutrophils (%) (Auto) % (45.0-75.0) Lymphocytes (%) (Auto) % (20.0-45.0) Monocytes (%) (Auto) % (1.0-10.0) Eosinophils (%) (Auto) % (0.0-3.0) Basophils (%) (Auto) % (0.0-2.0) Differential Total Cells Counted 100 Neutrophils % (Manual) 80 % (45-75) Lymphocytes % (Manual) 6 % (20-45) Monocytes % (Manual) 4 % (1-10) Eosinophils % (Manual) 0 % (0-3) Basophils % (Manual) 0 % (0-2) Band Neutrophils 10 % (0-8) Platelet Estimate Adequate Platelet Morphology Normal Hypochromasia 1+ Anisocytosis 1+ Sodium Level 133 MMOL/L (136-145) Potassium Level 4.7 MMOL/L (3.5-5.1) Chloride Level 96 MMOL/L (98-107) Carbon Dioxide Level 25 MMOL/L (21-32) Anion Gap 12 mmol/L (5-15) Blood Urea Nitrogen 49 mg/dL (7-18) Creatinine 1.4 MG/DL (0.55-1.30) Estimat Glomerular Filtration Rate 50.2 mL/min (>60) Glucose Level 125 MG/DL (74-106) Lactic Acid Level 3.00 mmol/L (0.4-2.0) 1.80 mmol/L (0.66-2.22) Calcium Level 9.9 MG/DL (8.5-10.1) Total Bilirubin 0.5 MG/DL (0.2-1.0) Aspartate Amino Transf (AST/SGOT) 31 U/L (15-37) Alanine Aminotransferase (ALT/SGPT) 17 U/L (12-78) Alkaline Phosphatase 143 U/L (46-116) Total Creatine Kinase 83 U/L (26-308) Creatine Kinase MB 2.0 NG/ML (0.0-3.6) Creatine Kinase MB Relative Index 2.4 Troponin I 0.000 ng/mL (0.000-0.056) Pro-B-Type Natriuretic Peptide 628 pg/mL (0-125) Total Protein 8.5 G/DL (6.4-8.2) Albumin 3.1 G/DL (3.4-5.0) Globulin 5.4 g/dL Albumin/Globulin Ratio 0.6 (1.0-2.7) Urine Color Yellow Urine Appearance Slightly cloudy Urine pH 6 (4.5-8.0) Urine Specific [place] 1.010 (1.005-1.035) Urine Protein 3+ (NEGATIVE) Urine Glucose (UA) Negative (NEGATIVE) Urine Ketones Negative (NEGATIVE) Urine Blood 4+ (NEGATIVE) Urine Nitrite Negative (NEGATIVE) Urine Bilirubin Negative (NEGATIVE) Urine Urobilinogen Normal MG/DL (0.0-1.0) Urine Leukocyte Esterase 3+ (NEGATIVE) Urine RBC 5-10 /HPF (0 - 0) Urine WBC 10-15 /HPF (0 - 0) Urine Squamous Epithelial Cells None /LPF (NONE/OCC) Urine Amorphous Sediment Few /LPF (NONE) Urine Bacteria Many /HPF (NONE) Iron Level 26 ug/dL (50-175) Total Iron Binding Capacity 265 ug/dL (250-450) Percent Iron Saturation 10 % (15-50) Unsaturated Iron Binding 239 ug/dL (112-346) (Anup Agee MD) EKG Diagnostic Results Rate: normal Rhythm: NSR ST Segments: no acute changes ASA given to the pt in ED: No (Anup Agee MD) Rhythm Strip Diag. Results EP Interpretation: yes Rhythm: NSR, no PVC's, no ectopy (Anup Agee MD) Chest X-Ray Diagnostic Results Chest X-Ray Diagnostic Results : Chest X-Ray Ordered: Yes # of Views/Limited/Complete: 1 View Indication: Other - fever PA Xray: Interpretation reviewed Interpretation: no pneumothorax, other - RLL infiltrate, trach Impression: Other - PNA Electronically Signed by: Electronically signed by Anup Agee MD (Anup Agee MD) Last Vital Signs Date Time Temp Pulse Resp B/P (MAP) Pulse Ox O2 Delivery O2 Flow Rate FiO2 05/13/18 19:04 98.0 107 21 96/52 96 Mechanical Ventilator 5.0 98.1 Status: improved (Anup Agee MD) Disposition: ADMITTED INPATIENT Condition: Serious Anup Agee MD May 13, 2018 19:45 John Hunter M.D. May 13, 2018 22:09
[2018-05-13 20:17] LABS: HEMATOCRIT 29.6 % (42.0-52.0); HEMOGLOBIN 9.9 G/DL (14.2-18.0); MEAN CORPUSCULAR VOLUME 82 FL (80-99); PLATELET COUNT 300 K/UL (150-450); RED BLOOD COUNT 3.61 M/UL (4.70-6.10); RED CELL DISTRIBUTION WIDTH 14.1 % (11.6-14.8)
[2018-05-13 20:20] LABS: WHITE BLOOD COUNT 40.1 K/UL (4.8-10.8)
[2018-05-13 20:23] LABS: ANION GAP 12 mmol/L (5-15); BLOOD UREA NITROGEN 49 mg/dL (7-18); CALCIUM 9.9 MG/DL (8.5-10.1); CARBON DIOXIDE 25 MMOL/L (21-32); CHLORIDE 96 MMOL/L (98-107); CREATININE 1.4 MG/DL (0.55-1.30); POTASSIUM 4.7 MMOL/L (3.5-5.1); SODIUM 133 MMOL/L (136-145)
[2018-05-13] MEDS ORDERED: Albuterol/Ipratropium 3ml neb HHN PRN (20:30)
[2018-05-13] MEDS ORDERED: Miralax 17gm pkt ORAL PRN (20:30)
[2018-05-13] MEDS ORDERED: Morphine Sulfate 4mg/ml Inj (IV USE ONLY) IVP PRN (20:30)
[2018-05-13] MEDS ORDERED: LORazepam Inj 2mg/ml 1ml IV PRN (20:30)
[2018-05-13 20:50] LABS: ALANINE AMINOTRANSFERASE 17 U/L (12-78); ALBUMIN 3.1 G/DL (3.4-5.0); ALBUMIN/GLOBULIN RATIO 0.6 (1.0-2.7); ALKALINE PHOSPHATASE 143 U/L (46-116); ASPARTATE AMINO TRANSFERASE 31 U/L (15-37); BILIRUBIN,TOTAL 0.5 MG/DL (0.2-1.0); CREATINE KINASE 83 U/L (26-308)
[2018-05-13] MEDS ORDERED: Azithromycin 500 MG in D5W 275 ML IVPB ONE (21:00)
[2018-05-13] MEDS ORDERED: Piperacillin/Tazobactam 3.375 GM in NS 110 ML IVPB ONE (21:00)
[2018-05-13] MEDS ORDERED: Vancomycin 1 GM in D5W 275 ML IVPB ONE (21:00)
[2018-05-13 21:10] VITALS: BP 124/100
[2018-05-13 21:20] LABS: APPEARANCE,URINE SLIGHTLY CLOUDY; BILIRUBIN, URINE NEGATIVE (NEGATIVE); GLUCOSE, URINE (UA) NEGATIVE (NEGATIVE); KETONES,URINE NEGATIVE (NEGATIVE); LEUKOCYTE ESTERASE ,URINE 3+ (NEGATIVE); NITRITE,URINE NEGATIVE (NEGATIVE); PH,URINE 6 (4.5-8.0); PROTEIN,URINE 3+ (NEGATIVE); UROBILINOGEN,URINE NORMAL MG/DL (0.0-1.0)
[2018-05-13 21:21] LABS: COLOR,URINE YELLOW
[2018-05-13 22:05] LABS: % IRON SATURATION 10 % (15-50); IRON 26 ug/dL (50-175); TOTAL IRON BINDING CAPACITY 265 ug/dL (250-450)
[2018-05-13] MEDS ORDERED: OMEPRAZOLE20 M3 ORAL (22:36)
[2018-05-13 23:05] VITALS: BP 119/98
[2018-05-14 00:35] VITALS: BP 129/80
[2018-05-14] MEDS: Sucralfate 1gm tab GT SCH ×5 (00:43→20:41)
[2018-05-14 04:00] VITALS: BP 110/66
[2018-05-14 06:25] LABS: HEMATOCRIT 24.9 % (42.0-52.0); HEMOGLOBIN 8.1 G/DL (14.2-18.0); MEAN CORPUSCULAR VOLUME 83 FL (80-99); PLATELET COUNT 239 K/UL (150-450); RED BLOOD COUNT 3.01 M/UL (4.70-6.10); RED CELL DISTRIBUTION WIDTH 13.6 % (11.6-14.8)
[2018-05-14 06:27] LABS: WHITE BLOOD COUNT 24.4 K/UL (4.8-10.8)
[2018-05-14 07:23] LABS: ALBUMIN 2.7 G/DL (3.4-5.0); ANION GAP 9 mmol/L (5-15); BLOOD UREA NITROGEN 43 mg/dL (7-18); CALCIUM 9.2 MG/DL (8.5-10.1); CARBON DIOXIDE 23 MMOL/L (21-32); CHLORIDE 99 MMOL/L (98-107); CREATININE 1.3 MG/DL (0.55-1.30); POTASSIUM 3.9 MMOL/L (3.5-5.1); SODIUM 130 MMOL/L (136-145)
[2018-05-14 08:00] VITALS: BP 138/71
[2018-05-14] MEDS: Vancomycin 500mg/D5W 110ml IVPB SCH ×4 (09:29→20:39)
--- NOTE | 2018-05-14 09:46 | Consultation ---
History of Present Illness General Date patient seen: May 14, 2018 Chief Complaint: Vomiting Reason for Consultation: Leukocytosis Present Illness HPI Mr. Huffman is a 67 yo male who presented from a long term with Upper GIB and fever 05/13/18. He is trached and on a ventilator. As he is non-verbal the history is obtained from the chart. The in the ED the patient had a Tmax of 100.4. It was reported to be 101 at the long term. He was found to have a leukocytosis of 41. UA had some WBCs present, He was started on Vancomycin and Zosyn and eduardo cultured. PMHx DM Asthma GERD GI bleed CVA/TIA Dementia Seizures PSHx Trach SocHx Lives at a long term FamHx Unable to obtain due to non-verbal Allergies: Coded Allergies: NO KNOWN DRUG ALLERGIES (Verified Allergy, Unknown, 09/11/16) Medication History Scheduled Ascorbic Acid* (Vitamin C*), 500 MG GT DAILY, (Reported) Cran/Vitc/Mannose/Inulin/Brom (Uti-Stat Liquid), 3,875 MG GT DAILY, (Reported) Docusate Sodium* (Docusate Sodium*), 100 MG GT DAILY, (Reported) Famotidine (Famotidine), 20 MG GT DAILY, (Reported) Ferrous Sulfate (Ferrous Sulfate), 330 MG GT DAILY, (Reported) Folic Acid* (Folic Acid*), 1 MG GT DAILY, (Reported) Levothyroxine Sodium* (Levothyroxine Sodium*), 50 MCG GT DAILY, (Reported) Magnesium Hydroxide* (Milk Of Magnesia*), 30 ML GT HS, (Reported) Multivitamin Liquid* (Multi-Delyn*), 15 ML GT DAILY, (Reported) Omeprazole (Omeprazole), 20 MG ORAL DAILY, (Reported) Sucralfate* (Carafate*), 1 GM GT FOUR TIMES A DAY, (Reported) Zinc Sulfate (Zinc Sulfate*), 220 MG ORAL DAILY, (Reported) Scheduled PRN Acetaminophen (Acetaminophen), 640 MG GT Q4HR PRN for Prn Headache/Temp > 101, ( Reported) Bisacodyl (Dulcolax), 10 MG RC NEEDED PRN for IF MOM INEFFECTIVE, (Reported) Ipratropium/Albuterol Sulfate (DuoNeb 0.5-3(2.5)mg/3ml), 3 ML HHN Q4H PRN for Shortness of Breath Na Phos,M-B/Na Phos,Di-Ba* (Fleet Enema*), 133 ML RECTAL QOD PRN for IF DUCOLAX INEFFETIVE, (Reported) Patient History Healthcare decision maker Resuscitation status Full Code Advanced Directive on File No Review of Systems ROS Narrative Unable to obtain as patient not verbal Physical Exam Physical Exam Narrative General Appearance: no apparent distress, nonverbal Head: NCAT, MMM, EOMI, PERRL, Tracheotomy, No LAD Respiratory: Mech breath on Vent Cardiovascular #1: regular rate, rhythm, no edema Gastrointestinal: Soft, NT, ND, + BS, Gtube No Erythema, or purulent drainaged Ext No C/C/E, Pulses 2+ B/L (DP, Rad) Neurologic: other nonverbal, Not follow commands or tracking with eyes Psychiatric: Unable to assess Skin: normal inspection Last 24 Hour Vital Signs Date Time Temp Pulse Resp B/P (MAP) Pulse Ox O2 Delivery O2 Flow Rate FiO2 05/14/18 08:41 78 16 40 05/14/18 07:04 91 20 40 05/14/18 05:27 88 20 40 05/14/18 04:00 40.0 05/14/18 04:00 97.7 101 20 110/66 (81) 99 97.7 05/14/18 04:00 Mechanical Ventilator 05/14/18 02:50 94 20 40 05/14/18 01:19 83 05/14/18 00:59 88 20 40 05/14/18 00:59 Mechanical Ventilator 05/14/18 00:35 98.1 109 20 129/80 (96) 98 98.1 05/14/18 00:35 99.8 101 20 117/96 96 Mechanical Ventilator 60.0 40 99.8 05/13/18 23:05 99.8 101 20 119/98 96 Mechanical Ventilator 60.0 40 99.8 05/13/18 23:01 103 20 40 05/13/18 21:20 111 20 40 05/13/18 21:10 100.4 107 19 124/100 96 Mechanical Ventilator 60.0 40 100.4 05/13/18 19:20 108 19 40 05/13/18 19:20 108 19 Mechanical Ventilator 60.0 40 05/13/18 19:04 98.0 107 21 96/52 96 Mechanical Ventilator 5.0 98.1 Intake and Output 05/13/18 05/14/18 19:00 07:00 Intake Total 0 ml Output Total 100 ml Balance -100 ml Intake Oral 0 ml Output Urine Total 100 ml Laboratory Tests Test 05/13/18 19:45 05/13/18 20:52 05/13/18 21:00 05/13/18 21:40 White Blood Count 40.1 K/UL (4.8-10.8) *H Red Blood Count 3.61 M/UL (4.70-6.10) L Hemoglobin 9.9 G/DL (14.2-18.0) L Hematocrit 29.6 % (42.0-52.0) L Mean Corpuscular Volume 82 FL (80-99) Mean Corpuscular Hemoglobin 27.6 PG (27.0-31.0) Mean Corpuscular Hemoglobin Concent 33.5 G/DL (32.0-36.0) Red Cell Distribution Width 14.1 % (11.6-14.8) Platelet Count 300 K/UL (150-450) Mean Platelet Volume 7.9 FL (6.5-10.1) Neutrophils (%) (Auto) % (45.0-75.0) Lymphocytes (%) (Auto) % (20.0-45.0) Monocytes (%) (Auto) % (1.0-10.0) Eosinophils (%) (Auto) % (0.0-3.0) Basophils (%) (Auto) % (0.0-2.0) Differential Total Cells Counted 100 Neutrophils % (Manual) 80 % (45-75) H Lymphocytes % (Manual) 6 % (20-45) L Monocytes % (Manual) 4 % (1-10) Eosinophils % (Manual) 0 % (0-3) Basophils % (Manual) 0 % (0-2) Band Neutrophils 10 % (0-8) H Platelet Estimate Adequate Platelet Morphology Normal Hypochromasia 1+ Anisocytosis 1+ Sodium Level 133 MMOL/L (136-145) L Potassium Level 4.7 MMOL/L (3.5-5.1) Chloride Level 96 MMOL/L (98-107) L Carbon Dioxide Level 25 MMOL/L (21-32) Anion Gap 12 mmol/L (5-15) Blood Urea Nitrogen 49 mg/dL (7-18) H Creatinine 1.4 MG/DL (0.55-1.30) H Estimat Glomerular Filtration Rate 50.2 mL/min (>60) Glucose Level 125 MG/DL (74-106) H Lactic Acid Level 3.00 mmol/L (0.4-2.0) H 1.80 mmol/L (0.66-2.22) Calcium Level 9.9 MG/DL (8.5-10.1) Total Bilirubin 0.5 MG/DL (0.2-1.0) Aspartate Amino Transf (AST/SGOT) 31 U/L (15-37) Alanine Aminotransferase (ALT/SGPT) 17 U/L (12-78) Alkaline Phosphatase 143 U/L (46-116) H Total Creatine Kinase 83 U/L (26-308) Creatine Kinase MB 2.0 NG/ML (0.0-3.6) Creatine Kinase MB Relative Index 2.4 Troponin I 0.000 ng/mL (0.000-0.056) Pro-B-Type Natriuretic Peptide 628 pg/mL (0-125) H Total Protein 8.5 G/DL (6.4-8.2) H Albumin 3.1 G/DL (3.4-5.0) L Globulin 5.4 g/dL Albumin/Globulin Ratio 0.6 (1.0-2.7) L Stool Occult Blood Pending Urine Color Yellow Urine Appearance Slightly cloudy Urine pH 6 (4.5-8.0) Urine Specific [place] 1.010 (1.005-1.035) Urine Protein 3+ (NEGATIVE) H Urine Glucose (UA) Negative (NEGATIVE) Urine Ketones Negative (NEGATIVE) Urine Blood 4+ (NEGATIVE) H Urine Nitrite Negative (NEGATIVE) Urine Bilirubin Negative (NEGATIVE) Urine Urobilinogen Normal MG/DL (0.0-1.0) Urine Leukocyte Esterase 3+ (NEGATIVE) H Urine RBC 5-10 /HPF (0 - 0) H Urine WBC 10-15 /HPF (0 - 0) H Urine Squamous Epithelial Cells None /LPF (NONE/OCC) Urine Amorphous Sediment Few /LPF (NONE) H Urine Bacteria Many /HPF (NONE) H Iron Level 26 ug/dL (50-175) L Total Iron Binding Capacity 265 ug/dL (250-450) Percent Iron Saturation 10 % (15-50) L Unsaturated Iron Binding 239 ug/dL (112-346) Test 05/14/18 05:30 White Blood Count 24.4 K/UL (4.8-10.8) *H Red Blood Count 3.01 M/UL (4.70-6.10) L Hemoglobin 8.1 G/DL (14.2-18.0) L Hematocrit 24.9 % (42.0-52.0) L Mean Corpuscular Volume 83 FL (80-99) Mean Corpuscular Hemoglobin 26.8 PG (27.0-31.0) L Mean Corpuscular Hemoglobin Concent 32.3 G/DL (32.0-36.0) Red Cell Distribution Width 13.6 % (11.6-14.8) Platelet Count 239 K/UL (150-450) Mean Platelet Volume 8.2 FL (6.5-10.1) Neutrophils (%) (Auto) % (45.0-75.0) Lymphocytes (%) (Auto) % (20.0-45.0) Monocytes (%) (Auto) % (1.0-10.0) Eosinophils (%) (Auto) % (0.0-3.0) Basophils (%) (Auto) % (0.0-2.0) Differential Total Cells Counted 100 Neutrophils % (Manual) 87 % (45-75) H Lymphocytes % (Manual) 6 % (20-45) L Monocytes % (Manual) 5 % (1-10) Eosinophils % (Manual) 0 % (0-3) Basophils % (Manual) 0 % (0-2) Band Neutrophils 2 % (0-8) Platelet Estimate Adequate Platelet Morphology Normal Hypochromasia 1+ Sodium Level 130 MMOL/L (136-145) L Potassium Level 3.9 MMOL/L (3.5-5.1) Chloride Level 99 MMOL/L (98-107) Carbon Dioxide Level 23 MMOL/L (21-32) Anion Gap 9 mmol/L (5-15) Blood Urea Nitrogen 43 mg/dL (7-18) H Creatinine 1.3 MG/DL (0.55-1.30) Estimat Glomerular Filtration Rate 54.7 mL/min (>60) Glucose Level 102 MG/DL (74-106) Calcium Level 9.2 MG/DL (8.5-10.1) Phosphorus Level 2.0 MG/DL (2.5-4.9) L Albumin 2.7 G/DL (3.4-5.0) L Microbiology Date/Time Source Procedure Growth Status 05/14/18 00:20 Rectum Received Height (Feet): 5 Height (Inches): 10.00 Weight (Pounds): 125 Medications Current Medications Medications (Trade) Dose Ordered Sig/Wanda Route PRN Reason Start Time Stop Time Status Last Admin Dose Admin Acetaminophen (Tylenol) 650 mg Q4H PRN ORAL T>100.5 05/13/18 20:30 06/12/18 20:29 Albuterol/ Ipratropium (Albuterol/ Ipratropium) 3 ml Q4H PRN HHN Shortness of Breath 05/13/18 20:30 05/18/18 20:29 Dextrose (Dextrose 50%) 25 ml PRN IV Hypoglycemia 05/13/18 20:45 06/12/18 20:44 Dextrose (Dextrose 50%) 50 ml PRN IV hypoglycemia 05/13/18 20:45 06/12/18 20:44 Levothyroxine Sodium (Synthroid) 50 mcg DAILY GT 05/14/18 09:00 06/13/18 08:59 Lorazepam (Ativan 2mg/ml 1ml) 2 mg EVERY 2 HOURS PRN IV For Anxiety 05/13/18 20:30 05/20/18 20:29 Morphine Sulfate (Morphine Sulfate) 4 mg EVERY 4 HOURS PRN IVP Severe Pain (Pain Scale 7-10) 05/13/18 20:30 05/20/18 20:29 Ondansetron HCl (Zofran) 4 mg Q6H PRN IVP Nausea & Vomiting 05/13/18 20:30 06/12/18 20:29 Polyethylene Glycol (Miralax) 17 gm DAILYPRN PRN ORAL Constipation 05/13/18 20:30 06/12/18 20:29 Sodium Chloride 1,000 ml @ 75 mls/hr [id number] IV 05/13/18 22:50 06/12/18 22:49 05/14/18 00:43 Sucralfate (Carafate) 1 gm FOUR TIMES A DAY GT 05/13/18 21:00 06/12/18 20:59 05/14/18 00:43 Vancomycin HCl (Vanco rx to dose) 1 ea DAILY PRN MISC . 05/13/18 21:00 06/12/18 20:59 Vancomycin HCl 500 mg/Dextrose 110 ml @ 110 mls/hr Q12HR IVPB 05/14/18 09:00 05/19/18 08:59 Assessment/Plan Assessment/Plan A: Sepsis PNA, vs UTI vs GI Leukocytosis WBCs 40K on admit Improving Fever - Resolved UGIB DM Asthma GERD Hx CVA/TIA Dementia Hx Seizures P: Continue vancomycin #2 and Zosyn #2 Pending Cx - f/u Blood, Sputum and Urine Cx Monitor CBC and Temps - f/u CXR - Vent support GI consult Thank you for this consult we will continue to follow the patient with you. John Fiore MD May 14, 2018 09:46
--- NOTE | 2018-05-14 10:30 | Pulmonolgy Critical Care Note ---
Critical Care - Asmt/Plan Problems: (1) Respiratory failure, [id number] (2) GI bleed (3) Sepsis (4) Anemia (5) Feeding by G-tube (6) Severe protein-calorie malnutrition (7) Psychosis (8) Dementia Respiratory: monitor respiratory rate, adjust FIO2, CXR Renal: F/U I&O Infectious Disease: check cultures Gastrointestinal: continue feedings/current rate, hold feedings Endocrine: monitor blood sugar, check HgA1C Hematologic: transfuse if hgb<8.5 Neurologic: PRN Ativan, keep patient comfortable Affect: PRN ativan Prophylaxis: Protonix Discussed with: nurses, consultants, renal case managerentry level account manager - Objective Last 24 Hour Vital Signs Date Time Temp Pulse Resp B/P (MAP) Pulse Ox O2 Delivery O2 Flow Rate FiO2 05/14/18 08:41 78 16 40 05/14/18 08:00 97.9 91 29 138/71 (93) 95 97.9 05/14/18 08:00 40.0 05/14/18 07:04 91 20 40 05/14/18 05:27 88 20 40 05/14/18 04:00 40.0 05/14/18 04:00 97.7 101 20 110/66 (81) 99 97.7 05/14/18 04:00 Mechanical Ventilator 05/14/18 02:50 94 20 40 05/14/18 01:19 83 05/14/18 00:59 88 20 40 05/14/18 00:59 Mechanical Ventilator 05/14/18 00:35 98.1 109 20 129/80 (96) 98 98.1 05/14/18 00:35 99.8 101 20 117/96 96 Mechanical Ventilator 60.0 40 99.8 05/13/18 23:05 99.8 101 20 119/98 96 Mechanical Ventilator 60.0 40 99.8 05/13/18 23:01 103 20 40 05/13/18 21:20 111 20 40 05/13/18 21:10 100.4 107 19 124/100 96 Mechanical Ventilator 60.0 40 100.4 05/13/18 19:20 108 19 40 05/13/18 19:20 108 19 Mechanical Ventilator 60.0 40 05/13/18 19:04 98.0 107 21 96/52 96 Mechanical Ventilator 5.0 98.1 Status: awake Condition: grave HEENT: atraumatic Lungs: clear Heart: HR/BP stable Abdomen: soft, active bowel sounds, feeding tube Extremities: edema Micro: Microbiology Date/Time Source Procedure Growth Status 05/14/18 00:20 Rectum Received Critical Care - Subjective ROS Limited/Unobtainable: Yes Condition: critical EKG Rhythm: Sinus Rhythm FI02: 40 Vent Support Breath Rate: 16 Vent Support Mode: AC Vent Tidal Volume: 600 Sputum Amount: Moderate PEEP: 5.0 PIP: 27 I&O: Intake and Output 05/13/18 05/14/18 19:00 07:00 Intake Total 0 ml Output Total 100 ml Balance -100 ml Intake Oral 0 ml Output Urine Total 100 ml Labs: Laboratory Tests Test 05/13/18 19:45 05/13/18 20:52 05/13/18 21:00 05/13/18 21:40 White Blood Count 40.1 K/UL (4.8-10.8) *H Red Blood Count 3.61 M/UL (4.70-6.10) L Hemoglobin 9.9 G/DL (14.2-18.0) L Hematocrit 29.6 % (42.0-52.0) L Mean Corpuscular Volume 82 FL (80-99) Mean Corpuscular Hemoglobin 27.6 PG (27.0-31.0) Mean Corpuscular Hemoglobin Concent 33.5 G/DL (32.0-36.0) Red Cell Distribution Width 14.1 % (11.6-14.8) Platelet Count 300 K/UL (150-450) Mean Platelet Volume 7.9 FL (6.5-10.1) Neutrophils (%) (Auto) % (45.0-75.0) Lymphocytes (%) (Auto) % (20.0-45.0) Monocytes (%) (Auto) % (1.0-10.0) Eosinophils (%) (Auto) % (0.0-3.0) Basophils (%) (Auto) % (0.0-2.0) Differential Total Cells Counted 100 Neutrophils % (Manual) 80 % (45-75) H Lymphocytes % (Manual) 6 % (20-45) L Monocytes % (Manual) 4 % (1-10) Eosinophils % (Manual) 0 % (0-3) Basophils % (Manual) 0 % (0-2) Band Neutrophils 10 % (0-8) H Platelet Estimate Adequate Platelet Morphology Normal Hypochromasia 1+ Anisocytosis 1+ Sodium Level 133 MMOL/L (136-145) L Potassium Level 4.7 MMOL/L (3.5-5.1) Chloride Level 96 MMOL/L (98-107) L Carbon Dioxide Level 25 MMOL/L (21-32) Anion Gap 12 mmol/L (5-15) Blood Urea Nitrogen 49 mg/dL (7-18) H Creatinine 1.4 MG/DL (0.55-1.30) H Estimat Glomerular Filtration Rate 50.2 mL/min (>60) Glucose Level 125 MG/DL (74-106) H Lactic Acid Level 3.00 mmol/L (0.4-2.0) H 1.80 mmol/L (0.66-2.22) Calcium Level 9.9 MG/DL (8.5-10.1) Total Bilirubin 0.5 MG/DL (0.2-1.0) Aspartate Amino Transf (AST/SGOT) 31 U/L (15-37) Alanine Aminotransferase (ALT/SGPT) 17 U/L (12-78) Alkaline Phosphatase 143 U/L (46-116) H Total Creatine Kinase 83 U/L (26-308) Creatine Kinase MB 2.0 NG/ML (0.0-3.6) Creatine Kinase MB Relative Index 2.4 Troponin I 0.000 ng/mL (0.000-0.056) Pro-B-Type Natriuretic Peptide 628 pg/mL (0-125) H Total Protein 8.5 G/DL (6.4-8.2) H Albumin 3.1 G/DL (3.4-5.0) L Globulin 5.4 g/dL Albumin/Globulin Ratio 0.6 (1.0-2.7) L Stool Occult Blood Pending Urine Color Yellow Urine Appearance Slightly cloudy Urine pH 6 (4.5-8.0) Urine Specific [place] 1.010 (1.005-1.035) Urine Protein 3+ (NEGATIVE) H Urine Glucose (UA) Negative (NEGATIVE) Urine Ketones Negative (NEGATIVE) Urine Blood 4+ (NEGATIVE) H Urine Nitrite Negative (NEGATIVE) Urine Bilirubin Negative (NEGATIVE) Urine Urobilinogen Normal MG/DL (0.0-1.0) Urine Leukocyte Esterase 3+ (NEGATIVE) H Urine RBC 5-10 /HPF (0 - 0) H Urine WBC 10-15 /HPF (0 - 0) H Urine Squamous Epithelial Cells None /LPF (NONE/OCC) Urine Amorphous Sediment Few /LPF (NONE) H Urine Bacteria Many /HPF (NONE) H Iron Level 26 ug/dL (50-175) L Total Iron Binding Capacity 265 ug/dL (250-450) Percent Iron Saturation 10 % (15-50) L Unsaturated Iron Binding 239 ug/dL (112-346) Test 05/14/18 05:30 White Blood Count 24.4 K/UL (4.8-10.8) *H Red Blood Count 3.01 M/UL (4.70-6.10) L Hemoglobin 8.1 G/DL (14.2-18.0) L Hematocrit 24.9 % (42.0-52.0) L Mean Corpuscular Volume 83 FL (80-99) Mean Corpuscular Hemoglobin 26.8 PG (27.0-31.0) L Mean Corpuscular Hemoglobin Concent 32.3 G/DL (32.0-36.0) Red Cell Distribution Width 13.6 % (11.6-14.8) Platelet Count 239 K/UL (150-450) Mean Platelet Volume 8.2 FL (6.5-10.1) Neutrophils (%) (Auto) % (45.0-75.0) Lymphocytes (%) (Auto) % (20.0-45.0) Monocytes (%) (Auto) % (1.0-10.0) Eosinophils (%) (Auto) % (0.0-3.0) Basophils (%) (Auto) % (0.0-2.0) Differential Total Cells Counted 100 Neutrophils % (Manual) 87 % (45-75) H Lymphocytes % (Manual) 6 % (20-45) L Monocytes % (Manual) 5 % (1-10) Eosinophils % (Manual) 0 % (0-3) Basophils % (Manual) 0 % (0-2) Band Neutrophils 2 % (0-8) Platelet Estimate Adequate Platelet Morphology Normal Hypochromasia 1+ Sodium Level 130 MMOL/L (136-145) L Potassium Level 3.9 MMOL/L (3.5-5.1) Chloride Level 99 MMOL/L (98-107) Carbon Dioxide Level 23 MMOL/L (21-32) Anion Gap 9 mmol/L (5-15) Blood Urea Nitrogen 43 mg/dL (7-18) H Creatinine 1.3 MG/DL (0.55-1.30) Estimat Glomerular Filtration Rate 54.7 mL/min (>60) Glucose Level 102 MG/DL (74-106) Calcium Level 9.2 MG/DL (8.5-10.1) Phosphorus Level 2.0 MG/DL (2.5-4.9) L Albumin 2.7 G/DL (3.4-5.0) L Huma Keating MD May 14, 2018 10:30
[2018-05-14] MEDS: D5NS 1,000 ML IV SCH (10:34)
--- NOTE | 2018-05-14 10:51 | Diagnostic Imaging Report ---
Indication: Shortness of breath Technique: One view of the chest Comparison: 03/25/2008 Findings: Tracheostomy again demonstrated. There is some atelectasis at the right perihilar region. There is some crowding of bronchovascular markings at the left lung base. No definite acute infiltrates, effusions, or congestion. Normal heart size. Impression: Right perihilar atelectasis No acute process otherwise
[2018-05-14] MEDS ORDERED: LORazepam Inj 2mg/ml 1ml IV PRN (11:30)
[2018-05-14 12:00] VITALS: BP 106/57
--- NOTE | 2018-05-14 13:33 | GI Initial Consult Note ---
History of Present Illness General Date patient seen: May 14, 2018 Time patient seen: 13:27 Reason for Hospitalization: Vomiting Referring physician: WEN HICKS Reason for Consultation: COFFEE GROUNDS Present Illness HPI 67-year-old male presents ED for evaluation. Patient brought in from senior living facility for coffee-ground emesis and fever today. Patient is on ventilator with trach. Patient is nonverbal at baseline. Patient had fever today of 101 and was given Tylenol. Afebrile in triage. Patient arrives in no signs of distress. No reported cough. No shortness of breath. No other aggravating relieving factors. No other associated symptoms GI consulted for coffee grounds. ROS limited. Patient known to us from prior admission with history of severe esophagitis presents today with reports coffee ground emesis at his facility. His last endoscopy performed in 2015. Labs show leukocytosis and anemia. OB stool is still pending. No active s/sx of N/V /D. Patient is GT dependant. Home Meds Active Scripts Ipratropium/Albuterol Sulfate (DuoNeb 0.5-3(2.5)mg/3ml) 3 Ml Ampul.neb, 3 ML HHN Q4H PRN for Shortness of Breath, #20 EA Prov:GarciaJd lesteret EVALUATION ENGINEER 12/25/15 Reported Medications Omeprazole (OMEPRAZOLE) 20 Mg Tablet.dr, 20 MG ORAL DAILY, TAB 05/13/18 Ferrous Sulfate (Ferrous Sulfate) 300 Mg/5 Ml Liquid, 330 MG GT DAILY, ML 03/26/18 Na Phos,M-B/Na Phos,Di-Ba* (FLEET ENEMA*) 133 Ml Enema, 133 ML RECTAL QOD PRN for IF DUCOLAX INEFFETIVE 10/16/17 Bisacodyl (DULCOLAX) 10 Mg Supp.rect, 10 MG RC NEEDED PRN for IF MOM INEFFECTIVE, SUPP 06/01/17 Magnesium Hydroxide* (MILK OF MAGNESIA*) 400 Mg/5 Ml Oral.susp, 30 ML GT HS for IF DOUSATE DOESN'T WORK, ML 06/01/17 Cran/Vitc/Mannose/Inulin/Brom (UTI-STAT LIQUID) 3,875 Mg/30 Ml Liquid, 3875 MG GT DAILY, ML 04/14/17 Docusate Sodium* (DOCUSATE SODIUM*) 100 Mg Capsule, 100 MG GT DAILY for HOLD FOR LBM, CAP 04/14/17 Zinc Sulfate (ZINC SULFATE*) 220 Mg Capsule, 220 MG ORAL DAILY, CAP 0 Refills 04/14/17 Ascorbic Acid* (VITAMIN C*) 500 Mg Tablet, 500 MG GT DAILY, #30 TAB 0 Refills 04/14/17 Multivitamin Liquid* (MULTI-DELYN*) 237 Ml Liquid, 15 ML GT DAILY, ML 04/14/17 Sucralfate* (CARAFATE*) 1 Gm Tablet, 1 GM GT FOUR TIMES A DAY, TAB 03/03/16 Acetaminophen (Acetaminophen) 650 Mg/20.3 Ml Soln, 640 MG GT Q4HR PRN for Prn Headache/Temp > 101, ML 0 Refills 01/19/16 Folic Acid* (FOLIC ACID*) 1 Mg Tablet, 1 MG GT DAILY, TAB 09/10/14 Famotidine (FAMOTIDINE) 20 Mg Tablet, 20 MG GT DAILY, #60 TAB 0 Refills 09/10/14 Levothyroxine Sodium* (LEVOTHYROXINE SODIUM*) 50 Mcg Tablet, 50 MCG GT DAILY, TAB Take in the morning on an empty stomach, at least 30 minutes before food. 09/10/14 Med list reviewed/reconciled: Yes Allergies: Coded Allergies: NO KNOWN DRUG ALLERGIES (Verified Allergy, Unknown, 09/11/16) Patient History Limited by: medical condition History Provided By: Medical Record PMH Narrative Past Medical History: DM, asthma, GERD, GI bleed, CVA/TIA, dementia, seizures Past Surgical History: other - trach Pertinent Family History: none Social History: Denies: smoking, alcohol use, drug use Immunizations: UTD Reviewed Nursing Documentation: PMH: Agreed; PSxH: Agreed Nursing Documentation-PM Past Medical History: No History, Except For Hx Cardiac Problems: Yes - trach and vent, CVD, anemia, atherosclerotic heart disease, angina Hx Hypertension: Yes - hypothyroidism Hx Asthma: Yes Hx COPD: No Hx Diabetes: Yes - DM II Hx Cancer: No Hx Gastrointestinal Problems: Yes - Gastrostomy, GERD, chonric peptic ulcer Hx Dialysis: Yes - pre renal azotemia, uti Hx Neurological Problems: Yes - dementia Hx Cerebrovascular Accident: Yes Hx Transient Ischemic Attacks: Yes Hx Dementia: Yes Hx Alzheimer's Disease: Yes Hx Parkinson's Disease: Yes Hx Encephalitis: Yes Hx Seizures: Yes Hx Epilepsy: Yes Hx Paralysis: Yes - HEMIPLEGIA Hx Concentration Difficulty: Yes Hx Speech Problem: Yes Hx Aphasia: Yes Hx Weakness: Yes Hx Fatigue: Yes Hx Neurologic Surgery: No Hx Brain Shunt: No Review of Systems All Other Systems: limited Physical Exam Vital Signs Date Time Temp Pulse Resp B/P (MAP) Pulse Ox O2 Delivery O2 Flow Rate FiO2 05/13/18 07:20 05/13/18 19:04 98.0 96/52 96 Mechanical Ventilator 5.0 98.1 Sp02 EP Interpretation: reviewed Labs Laboratory Tests Test 05/13/18 19:45 05/13/18 20:52 05/13/18 21:00 05/13/18 21:40 White Blood Count 40.1 K/UL (4.8-10.8) *H Red Blood Count 3.61 M/UL (4.70-6.10) L Hemoglobin 9.9 G/DL (14.2-18.0) L Hematocrit 29.6 % (42.0-52.0) L Mean Corpuscular Volume 82 FL (80-99) Mean Corpuscular Hemoglobin 27.6 PG (27.0-31.0) Mean Corpuscular Hemoglobin Concent 33.5 G/DL (32.0-36.0) Red Cell Distribution Width 14.1 % (11.6-14.8) Platelet Count 300 K/UL (150-450) Mean Platelet Volume 7.9 FL (6.5-10.1) Neutrophils (%) (Auto) % (45.0-75.0) Lymphocytes (%) (Auto) % (20.0-45.0) Monocytes (%) (Auto) % (1.0-10.0) Eosinophils (%) (Auto) % (0.0-3.0) Basophils (%) (Auto) % (0.0-2.0) Differential Total Cells Counted 100 Neutrophils % (Manual) 80 % (45-75) H Lymphocytes % (Manual) 6 % (20-45) L Monocytes % (Manual) 4 % (1-10) Eosinophils % (Manual) 0 % (0-3) Basophils % (Manual) 0 % (0-2) Band Neutrophils 10 % (0-8) H Platelet Estimate Adequate Platelet Morphology Normal Hypochromasia 1+ Anisocytosis 1+ Sodium Level 133 MMOL/L (136-145) L Potassium Level 4.7 MMOL/L (3.5-5.1) Chloride Level 96 MMOL/L (98-107) L Carbon Dioxide Level 25 MMOL/L (21-32) Anion Gap 12 mmol/L (5-15) Blood Urea Nitrogen 49 mg/dL (7-18) H Creatinine 1.4 MG/DL (0.55-1.30) H Estimat Glomerular Filtration Rate 50.2 mL/min (>60) Glucose Level 125 MG/DL (74-106) H Lactic Acid Level 3.00 mmol/L (0.4-2.0) H 1.80 mmol/L (0.66-2.22) Calcium Level 9.9 MG/DL (8.5-10.1) Total Bilirubin 0.5 MG/DL (0.2-1.0) Aspartate Amino Transf (AST/SGOT) 31 U/L (15-37) Alanine Aminotransferase (ALT/SGPT) 17 U/L (12-78) Alkaline Phosphatase 143 U/L (46-116) H Total Creatine Kinase 83 U/L (26-308) Creatine Kinase MB 2.0 NG/ML (0.0-3.6) Creatine Kinase MB Relative Index 2.4 Troponin I 0.000 ng/mL (0.000-0.056) Pro-B-Type Natriuretic Peptide 628 pg/mL (0-125) H Total Protein 8.5 G/DL (6.4-8.2) H Albumin 3.1 G/DL (3.4-5.0) L Globulin 5.4 g/dL Albumin/Globulin Ratio 0.6 (1.0-2.7) L Stool Occult Blood Pending Urine Color Yellow Urine Appearance Slightly cloudy Urine pH 6 (4.5-8.0) Urine Specific [place] 1.010 (1.005-1.035) Urine Protein 3+ (NEGATIVE) H Urine Glucose (UA) Negative (NEGATIVE) Urine Ketones Negative (NEGATIVE) Urine Blood 4+ (NEGATIVE) H Urine Nitrite Negative (NEGATIVE) Urine Bilirubin Negative (NEGATIVE) Urine Urobilinogen Normal MG/DL (0.0-1.0) Urine Leukocyte Esterase 3+ (NEGATIVE) H Urine RBC 5-10 /HPF (0 - 0) H Urine WBC 10-15 /HPF (0 - 0) H Urine Squamous Epithelial Cells None /LPF (NONE/OCC) Urine Amorphous Sediment Few /LPF (NONE) H Urine Bacteria Many /HPF (NONE) H Iron Level 26 ug/dL (50-175) L Total Iron Binding Capacity 265 ug/dL (250-450) Percent Iron Saturation 10 % (15-50) L Unsaturated Iron Binding 239 ug/dL (112-346) Test 05/14/18 05:30 White Blood Count 24.4 K/UL (4.8-10.8) *H Red Blood Count 3.01 M/UL (4.70-6.10) L Hemoglobin 8.1 G/DL (14.2-18.0) L Hematocrit 24.9 % (42.0-52.0) L Mean Corpuscular Volume 83 FL (80-99) Mean Corpuscular Hemoglobin 26.8 PG (27.0-31.0) L Mean Corpuscular Hemoglobin Concent 32.3 G/DL (32.0-36.0) Red Cell Distribution Width 13.6 % (11.6-14.8) Platelet Count 239 K/UL (150-450) Mean Platelet Volume 8.2 FL (6.5-10.1) Neutrophils (%) (Auto) % (45.0-75.0) Lymphocytes (%) (Auto) % (20.0-45.0) Monocytes (%) (Auto) % (1.0-10.0) Eosinophils (%) (Auto) % (0.0-3.0) Basophils (%) (Auto) % (0.0-2.0) Differential Total Cells Counted 100 Neutrophils % (Manual) 87 % (45-75) H Lymphocytes % (Manual) 6 % (20-45) L Monocytes % (Manual) 5 % (1-10) Eosinophils % (Manual) 0 % (0-3) Basophils % (Manual) 0 % (0-2) Band Neutrophils 2 % (0-8) Platelet Estimate Adequate Platelet Morphology Normal Hypochromasia 1+ Sodium Level 130 MMOL/L (136-145) L Potassium Level 3.9 MMOL/L (3.5-5.1) Chloride Level 99 MMOL/L (98-107) Carbon Dioxide Level 23 MMOL/L (21-32) Anion Gap 9 mmol/L (5-15) Blood Urea Nitrogen 43 mg/dL (7-18) H Creatinine 1.3 MG/DL (0.55-1.30) Estimat Glomerular Filtration Rate 54.7 mL/min (>60) Glucose Level 102 MG/DL (74-106) Calcium Level 9.2 MG/DL (8.5-10.1) Phosphorus Level 2.0 MG/DL (2.5-4.9) L Albumin 2.7 G/DL (3.4-5.0) L General Appearance: no apparent distress Head: normocephalic EENT: TMs normal Neck: supple Respiratory: other - trach to vent Gastrointestinal: gt - c/d/i Neurologic: alert Skin: normal inspection, normal color, no rash, warm/dry Current Medications Current Medications Medications (Trade) Dose Ordered Sig/Wanda Route PRN Reason Start Time Stop Time Status Last Admin Dose Admin Acetaminophen (Tylenol) 650 mg Q4H PRN ORAL T>100.5 05/13/18 20:30 06/12/18 20:29 Albuterol/ Ipratropium (Albuterol/ Ipratropium) 3 ml Q4H PRN HHN Shortness of Breath 05/13/18 20:30 05/18/18 20:29 Chlorhexidine Gluconate (Jasmin-Hex 2%) 1 applic DAILY@2000 TOPIC 05/15/18 20:00 06/14/18 19:59 Dextrose (Dextrose 50%) 25 ml PRN IV Hypoglycemia 05/13/18 20:45 06/12/18 20:44 Dextrose (Dextrose 50%) 50 ml PRN IV hypoglycemia 05/13/18 20:45 06/12/18 20:44 Dextrose/Sodium Chloride 1,000 ml @ 75 mls/hr [id number] IV 05/14/18 10:00 06/13/18 09:59 05/14/18 10:34 Heparin Sodium/ Sodium Chloride (Heparin 2000 units/Ns 1000ml premix) 2,000 unit ONCE INJ 05/15/18 11:30 05/16/18 11:29 Levothyroxine Sodium (Synthroid) 50 mcg DAILY GT 05/14/18 09:00 06/13/18 08:59 05/14/18 09:29 Lidocaine HCl (Xylocaine 1% 30ml) 30 ml ONCE INJ 05/15/18 11:30 05/16/18 11:29 Lorazepam (Ativan 2mg/ml 1ml) 2 mg Q2H PRN IV AGITATION 05/14/18 11:30 05/21/18 11:29 Morphine Sulfate (Morphine Sulfate) 4 mg EVERY 4 HOURS PRN IVP Severe Pain (Pain Scale 7-10) 05/13/18 20:30 05/20/18 20:29 Ondansetron HCl (Zofran) 4 mg Q6H PRN IVP Nausea & Vomiting 05/13/18 20:30 06/12/18 20:29 Pantoprazole (Protonix) 40 mg Q12H IVP 05/14/18 18:00 06/13/18 17:59 Polyethylene Glycol (Miralax) 17 gm DAILYPRN PRN ORAL Constipation 05/13/18 20:30 06/12/18 20:29 Quetiapine Fumarate (SEROquel) 25 mg Q6H PRN ORAL For Anxiety 05/14/18 11:30 06/13/18 11:29 Sucralfate (Carafate) 1 gm FOUR TIMES A DAY GT 05/13/18 21:00 06/12/18 20:59 05/14/18 09:29 Vancomycin HCl (Vanco rx to dose) 1 ea DAILY PRN MISC . 05/13/18 21:00 06/12/18 20:59 Vancomycin HCl 500 mg/Dextrose 110 ml @ 110 mls/hr Q12HR IVPB 05/14/18 09:00 05/19/18 08:59 05/14/18 09:29 GI: Plan Problems: (1) Alzheimer's dementia (2) Upper GI bleed (3) Anemia (4) Malnutrition (5) Edema (6) Anemia (7) Feeding by G-tube (8) Severe protein-calorie malnutrition (9) Anemia Plan EGD scheduled for tomorrow. - GTFs today, NPO @ MN. ppi BID + carafate prn transfusions anemia work up OB stool r/o GI bleed pending monitor H&H, prn transfusions bowel regime fu labs Discussed with Dr. Wilson. Thank you for this patient referral, we will follow. The patient was seen and examined at bedside and all new and available data was reviewed in the patients chart. I agree with the above findings, impression and plan. (Patient seen earlier today. Signature stamp does not reflect patient encounter time.). - MD Sangita Cerna AnhSaskia ANDRE May 14, 2018 13:32
--- NOTE | 2018-05-14 15:10 | Consultation ---
History of Present Illness General Chief Complaint: Vomiting Referring physician: WEN HICKS Reason for Consultation: [employer] Present Illness Allergies: Coded Allergies: NO KNOWN DRUG ALLERGIES (Verified Allergy, Unknown, 09/11/16) Medication History Scheduled Ascorbic Acid* (Vitamin C*), 500 MG GT DAILY, (Reported) Cran/Vitc/Mannose/Inulin/Brom (Uti-Stat Liquid), 3,875 MG GT DAILY, (Reported) Docusate Sodium* (Docusate Sodium*), 100 MG GT DAILY, (Reported) Famotidine (Famotidine), 20 MG GT DAILY, (Reported) Ferrous Sulfate (Ferrous Sulfate), 330 MG GT DAILY, (Reported) Folic Acid* (Folic Acid*), 1 MG GT DAILY, (Reported) Levothyroxine Sodium* (Levothyroxine Sodium*), 50 MCG GT DAILY, (Reported) Magnesium Hydroxide* (Milk Of Magnesia*), 30 ML GT HS, (Reported) Multivitamin Liquid* (Multi-Delyn*), 15 ML GT DAILY, (Reported) Omeprazole (Omeprazole), 20 MG ORAL DAILY, (Reported) Sucralfate* (Carafate*), 1 GM GT FOUR TIMES A DAY, (Reported) Zinc Sulfate (Zinc Sulfate*), 220 MG ORAL DAILY, (Reported) Scheduled PRN Acetaminophen (Acetaminophen), 640 MG GT Q4HR PRN for Prn Headache/Temp > 101, ( Reported) Bisacodyl (Dulcolax), 10 MG RC NEEDED PRN for IF MOM INEFFECTIVE, (Reported) Ipratropium/Albuterol Sulfate (DuoNeb 0.5-3(2.5)mg/3ml), 3 ML HHN Q4H PRN for Shortness of Breath Na Phos,M-B/Na Phos,Di-Ba* (Fleet Enema*), 133 ML RECTAL QOD PRN for IF DUCOLAX INEFFETIVE, (Reported) Patient History Healthcare decision maker Resuscitation status Full Code Advanced Directive on File No Physical Exam Last 24 Hour Vital Signs Date Time Temp Pulse Resp B/P (MAP) Pulse Ox O2 Delivery O2 Flow Rate FiO2 05/14/18 14:31 80 16 40 05/14/18 13:18 84 16 40 05/14/18 12:00 Mechanical Ventilator 05/14/18 12:00 40.0 05/14/18 12:00 98.1 88 19 106/57 (73) 100 98.1 05/14/18 11:03 82 16 40 05/14/18 08:41 78 16 40 05/14/18 08:00 97.9 91 29 138/71 (93) 95 97.9 05/14/18 08:00 80 05/14/18 08:00 40.0 05/14/18 08:00 Mechanical Ventilator 05/14/18 07:04 91 20 40 05/14/18 05:27 88 20 40 05/14/18 04:00 40.0 05/14/18 04:00 97.7 101 20 110/66 (81) 99 97.7 05/14/18 04:00 Mechanical Ventilator 05/14/18 02:50 94 20 40 05/14/18 01:19 83 05/14/18 00:59 88 20 40 05/14/18 00:59 Mechanical Ventilator 05/14/18 00:35 98.1 109 20 129/80 (96) 98 98.1 05/14/18 00:35 99.8 101 20 117/96 96 Mechanical Ventilator 60.0 40 99.8 05/13/18 23:05 99.8 101 20 119/98 96 Mechanical Ventilator 60.0 40 99.8 05/13/18 23:01 103 20 40 05/13/18 21:20 111 20 40 05/13/18 21:10 100.4 107 19 124/100 96 Mechanical Ventilator 60.0 40 100.4 05/13/18 19:20 108 19 40 05/13/18 19:20 108 19 Mechanical Ventilator 60.0 40 05/13/18 19:04 98.0 107 21 96/52 96 Mechanical Ventilator 5.0 98.1 Intake and Output 05/13/18 05/14/18 19:00 07:00 Intake Total 0 ml Output Total 100 ml Balance -100 ml Intake Oral 0 ml Output Urine Total 100 ml Laboratory Tests Test 05/13/18 19:45 05/13/18 20:52 05/13/18 21:00 05/13/18 21:40 White Blood Count 40.1 K/UL (4.8-10.8) *H Red Blood Count 3.61 M/UL (4.70-6.10) L Hemoglobin 9.9 G/DL (14.2-18.0) L Hematocrit 29.6 % (42.0-52.0) L Mean Corpuscular Volume 82 FL (80-99) Mean Corpuscular Hemoglobin 27.6 PG (27.0-31.0) Mean Corpuscular Hemoglobin Concent 33.5 G/DL (32.0-36.0) Red Cell Distribution Width 14.1 % (11.6-14.8) Platelet Count 300 K/UL (150-450) Mean Platelet Volume 7.9 FL (6.5-10.1) Neutrophils (%) (Auto) % (45.0-75.0) Lymphocytes (%) (Auto) % (20.0-45.0) Monocytes (%) (Auto) % (1.0-10.0) Eosinophils (%) (Auto) % (0.0-3.0) Basophils (%) (Auto) % (0.0-2.0) Differential Total Cells Counted 100 Neutrophils % (Manual) 80 % (45-75) H Lymphocytes % (Manual) 6 % (20-45) L Monocytes % (Manual) 4 % (1-10) Eosinophils % (Manual) 0 % (0-3) Basophils % (Manual) 0 % (0-2) Band Neutrophils 10 % (0-8) H Platelet Estimate Adequate Platelet Morphology Normal Hypochromasia 1+ Anisocytosis 1+ Sodium Level 133 MMOL/L (136-145) L Potassium Level 4.7 MMOL/L (3.5-5.1) Chloride Level 96 MMOL/L (98-107) L Carbon Dioxide Level 25 MMOL/L (21-32) Anion Gap 12 mmol/L (5-15) Blood Urea Nitrogen 49 mg/dL (7-18) H Creatinine 1.4 MG/DL (0.55-1.30) H Estimat Glomerular Filtration Rate 50.2 mL/min (>60) Glucose Level 125 MG/DL (74-106) H Lactic Acid Level 3.00 mmol/L (0.4-2.0) H 1.80 mmol/L (0.66-2.22) Calcium Level 9.9 MG/DL (8.5-10.1) Total Bilirubin 0.5 MG/DL (0.2-1.0) Aspartate Amino Transf (AST/SGOT) 31 U/L (15-37) Alanine Aminotransferase (ALT/SGPT) 17 U/L (12-78) Alkaline Phosphatase 143 U/L (46-116) H Total Creatine Kinase 83 U/L (26-308) Creatine Kinase MB 2.0 NG/ML (0.0-3.6) Creatine Kinase MB Relative Index 2.4 Troponin I 0.000 ng/mL (0.000-0.056) Pro-B-Type Natriuretic Peptide 628 pg/mL (0-125) H Total Protein 8.5 G/DL (6.4-8.2) H Albumin 3.1 G/DL (3.4-5.0) L Globulin 5.4 g/dL Albumin/Globulin Ratio 0.6 (1.0-2.7) L Stool Occult Blood Pending Urine Color Yellow Urine Appearance Slightly cloudy Urine pH 6 (4.5-8.0) Urine Specific Hunters 1.010 (1.005-1.035) Urine Protein 3+ (NEGATIVE) H Urine Glucose (UA) Negative (NEGATIVE) Urine Ketones Negative (NEGATIVE) Urine Blood 4+ (NEGATIVE) H Urine Nitrite Negative (NEGATIVE) Urine Bilirubin Negative (NEGATIVE) Urine Urobilinogen Normal MG/DL (0.0-1.0) Urine Leukocyte Esterase 3+ (NEGATIVE) H Urine RBC 5-10 /HPF (0 - 0) H Urine WBC 10-15 /HPF (0 - 0) H Urine Squamous Epithelial Cells None /LPF (NONE/OCC) Urine Amorphous Sediment Few /LPF (NONE) H Urine Bacteria Many /HPF (NONE) H Iron Level 26 ug/dL (50-175) L Total Iron Binding Capacity 265 ug/dL (250-450) Percent Iron Saturation 10 % (15-50) L Unsaturated Iron Binding 239 ug/dL (112-346) Test 05/14/18 05:30 White Blood Count 24.4 K/UL (4.8-10.8) *H Red Blood Count 3.01 M/UL (4.70-6.10) L Hemoglobin 8.1 G/DL (14.2-18.0) L Hematocrit 24.9 % (42.0-52.0) L Mean Corpuscular Volume 83 FL (80-99) Mean Corpuscular Hemoglobin 26.8 PG (27.0-31.0) L Mean Corpuscular Hemoglobin Concent 32.3 G/DL (32.0-36.0) Red Cell Distribution Width 13.6 % (11.6-14.8) Platelet Count 239 K/UL (150-450) Mean Platelet Volume 8.2 FL (6.5-10.1) Neutrophils (%) (Auto) % (45.0-75.0) Lymphocytes (%) (Auto) % (20.0-45.0) Monocytes (%) (Auto) % (1.0-10.0) Eosinophils (%) (Auto) % (0.0-3.0) Basophils (%) (Auto) % (0.0-2.0) Differential Total Cells Counted 100 Neutrophils % (Manual) 87 % (45-75) H Lymphocytes % (Manual) 6 % (20-45) L Monocytes % (Manual) 5 % (1-10) Eosinophils % (Manual) 0 % (0-3) Basophils % (Manual) 0 % (0-2) Band Neutrophils 2 % (0-8) Platelet Estimate Adequate Platelet Morphology Normal Hypochromasia 1+ Sodium Level 130 MMOL/L (136-145) L Potassium Level 3.9 MMOL/L (3.5-5.1) Chloride Level 99 MMOL/L (98-107) Carbon Dioxide Level 23 MMOL/L (21-32) Anion Gap 9 mmol/L (5-15) Blood Urea Nitrogen 43 mg/dL (7-18) H Creatinine 1.3 MG/DL (0.55-1.30) Estimat Glomerular Filtration Rate 54.7 mL/min (>60) Glucose Level 102 MG/DL (74-106) Calcium Level 9.2 MG/DL (8.5-10.1) Phosphorus Level 2.0 MG/DL (2.5-4.9) L Albumin 2.7 G/DL (3.4-5.0) L Microbiology Date/Time Source Procedure Growth Status 05/14/18 00:20 Rectum Received Height (Feet): 5 Height (Inches): 10.00 Weight (Pounds): 125 Medications Current Medications Medications (Trade) Dose Ordered Sig/Wanda Route PRN Reason Start Time Stop Time Status Last Admin Dose Admin Acetaminophen (Tylenol) 650 mg Q4H PRN ORAL T>100.5 05/13/18 20:30 06/12/18 20:29 Albuterol/ Ipratropium (Albuterol/ Ipratropium) 3 ml Q4H PRN HHN Shortness of Breath 05/13/18 20:30 05/18/18 20:29 Chlorhexidine Gluconate (Jasmin-Hex 2%) 1 applic DAILY@2000 TOPIC 05/15/18 20:00 06/14/18 19:59 Dextrose (Dextrose 50%) 25 ml PRN IV Hypoglycemia 05/13/18 20:45 06/12/18 20:44 Dextrose (Dextrose 50%) 50 ml PRN IV hypoglycemia 05/13/18 20:45 06/12/18 20:44 Dextrose/Sodium Chloride 1,000 ml @ 75 mls/hr [id number] IV 05/14/18 10:00 06/13/18 09:59 05/14/18 10:34 Heparin Sodium/ Sodium Chloride (Heparin 2000 units/Ns 1000ml premix) 2,000 unit ONCE INJ 05/15/18 11:30 05/16/18 11:29 Levothyroxine Sodium (Synthroid) 50 mcg DAILY GT 05/14/18 09:00 06/13/18 08:59 05/14/18 09:29 Lidocaine HCl (Xylocaine 1% 30ml) 30 ml ONCE INJ 05/15/18 11:30 05/16/18 11:29 Lorazepam (Ativan 2mg/ml 1ml) 2 mg Q2H PRN IV AGITATION 05/14/18 11:30 05/21/18 11:29 Morphine Sulfate (Morphine Sulfate) 4 mg EVERY 4 HOURS PRN IVP Severe Pain (Pain Scale 7-10) 05/13/18 20:30 05/20/18 20:29 Ondansetron HCl (Zofran) 4 mg Q6H PRN IVP Nausea & Vomiting 05/13/18 20:30 06/12/18 20:29 Pantoprazole (Protonix) 40 mg Q12H IVP 05/14/18 18:00 06/13/18 17:59 Polyethylene Glycol (Miralax) 17 gm DAILYPRN PRN ORAL Constipation 05/13/18 20:30 06/12/18 20:29 Quetiapine Fumarate (SEROquel) 25 mg Q6H PRN ORAL For Anxiety 05/14/18 11:30 06/13/18 11:29 Sucralfate (Carafate) 1 gm FOUR TIMES A DAY GT 05/13/18 21:00 06/12/18 20:59 05/14/18 13:00 Vancomycin HCl (Vanco rx to dose) 1 ea DAILY PRN MISC . 05/13/18 21:00 06/12/18 20:59 Vancomycin HCl 500 mg/Dextrose 110 ml @ 110 mls/hr Q12HR IVPB 05/14/18 09:00 05/19/18 08:59 05/14/18 09:29 Assessment/Plan Assessment/Plan encephalopathy mdd cont current meds Toma Ramirez MD May 14, 2018 15:10
[2018-05-14 16:00] VITALS: BP 120/48
[2018-05-14] MEDS: Pantoprazole Inj IVP SCH (17:50)
--- NOTE | 2018-05-14 18:15 | History and Physical Report ---
DATE OF ADMISSION: 05/13/2018 TIME: 1 p.m. CONSULTANTS: 1. Huma Keating M.D. 2. Cesario Daniels M.D. CHIEF COMPLAINT: Fever, sepsis, and gastrointestinal bleed. BRIEF HISTORY: This is a 67-year-old male from [facility], who presented to [facility] last night with history of fever and weakness and lethargy. The patient was found to have fever, sepsis, anemia, and gastrointestinal bleed, admitted to step-down for further care. Currently, trach, vent, altered, lethargic in bed, and nonverbal. PAST MEDICAL HISTORY: Includes respiratory failure, hypertension, malnutrition, and dementia. PAST SURGICAL HISTORY: Trach. MEDICATIONS: Includes chlorhexidine, lidocaine, heparin, pantoprazole, quetiapine, levofloxacin, vancomycin, , and dextrose. ALLERGIES: Denies. SOCIAL HISTORY: No smoking. No alcohol. No intravenous drug abuse. FAMILY HISTORY: Noncontributory. REVIEW OF SYSTEMS: Unavailable. PHYSICAL EXAMINATION: GENERAL: Lethargic in bed, nonverbal. VITAL SIGNS: Temperature is 98, pulse 88, respirations 19, and blood pressure 106/57. CARDIOVASCULAR: No murmurs. LUNGS: Poor air exchange. ABDOMEN: Bowel sounds distant. EXTREMITIES: No cyanosis, clubbing, or edema. NEUROLOGIC: The patient is flaccid in bed, not following directions. LABORATORY AND DIAGNOSTIC DATA: Labs, at this time, show white count 24, hemoglobin and hematocrit is 8.1 and 24, and platelets is 239,000. BMP shows sodium 130 and BUN 43. Otherwise, BMP is normal. Albumin 2.7. Urinalysis shows 3+ leukocyte esterase. ASSESSMENT: 1. Respiratory failure. 2. Urinary tract infection. 3. Sepsis. 4. Gastrointestinal bleed. 5. Anemia. 6. Malnutrition. 7. Fever. 8. Dementia. PLAN: 1. Vent per Pulmonary. 2. Antibiotic per Infectious Disease. 3. Blood pressure and blood sugar control. 4. Dietary followup. 5. Resume home medications. 6. Dr. Keating, Jeremiah Palm, and Dr. Wilson to consult. 7. We will continue to follow this patient medically. 8. CBC and BMP in the morning. Gato Viveros D.O. DR: HARSH JOB#: [id number] CC:
[2018-05-14 20:08] VITALS: BP 130/70
[2018-05-14] MEDS ORDERED: D5 1/2NS w/KCl 20mEq 1,000 ML IVLG SCH (23:00)
[2018-05-15] VITALS: BP 157/72
[2018-05-15] MEDS: D5NS 1,000 ML IV SCH ×2 (00:07→18:42)
[2018-05-15 04:00] VITALS: BP 129/68
[2018-05-15] MEDS: Pantoprazole Inj IVP SCH ×2 (05:53→18:00)
[2018-05-15 06:43] LABS: HEMOGLOBIN 7.5 G/DL (14.2-18.0); MEAN CORPUSCULAR VOLUME 84 FL (80-99); PLATELET COUNT 242 K/UL (150-450); RED BLOOD COUNT 2.88 M/UL (4.70-6.10); WHITE BLOOD COUNT 12.9 K/UL (4.8-10.8)
[2018-05-15 06:55] LABS: ALANINE AMINOTRANSFERASE 20 U/L (12-78); ALBUMIN 2.7 G/DL (3.4-5.0); ALBUMIN/GLOBULIN RATIO 0.6 (1.0-2.7); ALKALINE PHOSPHATASE 114 U/L (46-116); ANION GAP 8 mmol/L (5-15); ASPARTATE AMINO TRANSFERASE 15 U/L (15-37); BILIRUBIN,TOTAL 0.3 MG/DL (0.2-1.0); BLOOD UREA NITROGEN 29 mg/dL (7-18); CALCIUM 9.1 MG/DL (8.5-10.1); CARBON DIOXIDE 24 MMOL/L (21-32); CHLORIDE 104 MMOL/L (98-107); CREATININE 1.2 MG/DL (0.55-1.30); PHOSPHORUS 2.2 MG/DL (2.5-4.9); POTASSIUM 3.2 MMOL/L (3.5-5.1); SODIUM 136 MMOL/L (136-145)
[2018-05-15 08:00] VITALS: BP 145/82
[2018-05-15] MEDS ORDERED: Heparin 2000 units/Ns 1000ml INJ ONE (08:00)
[2018-05-15] MEDS ORDERED: Lidocaine 1% Plain 30 ml INJ ONE (08:00)
[2018-05-15] MEDS ORDERED: Lidocaine 1% Plain 30 ml INJ SCH (08:10)
[2018-05-15] MEDS ORDERED: Heparin 2000 units/Ns 1000ml INJ SCH (08:11)
[2018-05-15] MEDS: Sucralfate 1gm tab GT SCH ×4 (09:00→20:51)
[2018-05-15] MEDS: Vancomycin 500mg/D5W 110ml IVPB SCH ×4 (09:00→20:49)
--- NOTE | 2018-05-15 10:53 | Pulmonolgy Critical Care Note ---
Critical Care - Asmt/Plan Problems: (1) Respiratory failure, [id number] (2) GI bleed (3) Sepsis (4) Anemia (5) Feeding by G-tube (6) Severe protein-calorie malnutrition (7) Psychosis (8) Dementia Respiratory: monitor respiratory rate, adjust FIO2, CXR Cardiac: continue to monitor HR/BP Renal: F/U I&O Infectious Disease: check cultures Gastrointestinal: continue feedings/current rate, hold feedings Endocrine: check HgA1C, continue sliding scale insulin Hematologic: transfuse if hgb<8.5 Neurologic: PRN Morphine, keep patient comfortable Affect: PRN ativan Prophylaxis: Protonix Notes Reviewed: vp of product, 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 with: consultants Critical Care - Objective Last 24 Hour Vital Signs Date Time Temp Pulse Resp B/P (MAP) Pulse Ox O2 Delivery O2 Flow Rate FiO2 05/15/18 09:16 83 16 40 05/15/18 08:00 Mechanical Ventilator 05/15/18 08:00 40.0 05/15/18 08:00 80 05/15/18 08:00 98.2 84 18 145/82 (103) 100 98.2 05/15/18 07:01 83 19 40 05/15/18 05:21 71 22 40 05/15/18 04:00 Mechanical Ventilator 05/15/18 04:00 40.0 05/15/18 04:00 98.4 94 19 129/68 (88) 100 98.4 05/15/18 03:54 98 05/15/18 03:30 98 19 40 05/15/18 01:30 92 20 40 05/15/18 00:00 Mechanical Ventilator 05/15/18 00:00 95 05/15/18 00:00 40.0 05/15/18 00:00 98.2 85 16 157/72 (100) 100 98.2 05/14/18 22:45 97 19 40 05/14/18 21:01 90 15 40 05/14/18 20:08 97.8 98 16 130/70 (90) 100 97.8 05/14/18 20:00 40.0 05/14/18 20:00 Mechanical Ventilator 05/14/18 20:00 96 05/14/18 19:30 94 17 40 05/14/18 16:19 84 16 40 05/14/18 16:00 Mechanical Ventilator 05/14/18 16:00 98.2 105 19 120/48 (72) 100 98.2 05/14/18 16:00 82 05/14/18 16:00 40.0 05/14/18 14:31 80 16 40 05/14/18 13:18 84 16 40 05/14/18 12:00 Mechanical Ventilator 05/14/18 12:00 40.0 05/14/18 12:00 98.1 88 19 106/57 (73) 100 98.1 05/14/18 12:00 79 05/14/18 11:03 82 16 40 Status: awake Condition: critical HEENT: atraumatic Neck: full ROM Lungs: rales, rhonchi Heart: HR/BP stable Abdomen: soft, active bowel sounds Extremities: edema Decubiti: location Micro: Microbiology Date/Time Source Procedure Growth Status 05/13/18 21:40 Blood Blood Culture - Preliminary NO GROWTH AFTER 24 HOURS Resulted 05/13/18 19:45 Blood Blood Culture - Preliminary NO GROWTH AFTER 24 HOURS Resulted 05/13/18 21:00 Urine,Clean Catch Urine Culture - Preliminary Gram Negative Bacillus 1 Resulted 05/14/18 00:20 Rectum Received Critical Care - Subjective ROS Limited/Unobtainable: No Condition: critical EKG Rhythm: Sinus Rhythm FI02: 40 Vent Support Breath Rate: 16 Vent Support Mode: AC Vent Tidal Volume: 600 Sputum Amount: Moderate PEEP: 5.0 PIP: 25 I&O: Intake and Output 05/14/18 05/15/18 19:00 07:00 Intake Total 1067.75 ml 1035 ml Output Total 350 ml 325 ml Balance 717.75 ml 710 ml Free Water 100 ml IV Total 967.75 ml 935 ml Other 100 ml Output Urine Total 350 ml 325 ml CXR: Impression: Right perihilar atelectasis Labs: Laboratory Tests Test 05/15/18 04:00 05/15/18 08:15 White Blood Count 12.9 K/UL (4.8-10.8) H Red Blood Count 2.88 M/UL (4.70-6.10) L Hemoglobin 7.5 G/DL (14.2-18.0) L Hematocrit 24.0 % (42.0-52.0) L Mean Corpuscular Volume 84 FL (80-99) Mean Corpuscular Hemoglobin 26.1 PG (27.0-31.0) L Mean Corpuscular Hemoglobin Concent 31.2 G/DL (32.0-36.0) L Red Cell Distribution Width 14.0 % (11.6-14.8) Platelet Count 242 K/UL (150-450) Mean Platelet Volume 8.1 FL (6.5-10.1) Neutrophils (%) (Auto) % (45.0-75.0) Lymphocytes (%) (Auto) % (20.0-45.0) Monocytes (%) (Auto) % (1.0-10.0) Eosinophils (%) (Auto) % (0.0-3.0) Basophils (%) (Auto) % (0.0-2.0) Neutrophils % (Manual) Pending Lymphocytes % (Manual) Pending Platelet Estimate Pending Platelet Morphology Pending Prothrombin Time 10.8 SEC (9.30-11.50) Prothromb Time International Ratio 1.0 (0.9-1.1) Activated Partial Thromboplast Time 32 SEC (23-33) Sodium Level 136 MMOL/L (136-145) Potassium Level 3.2 MMOL/L (3.5-5.1) L Chloride Level 104 MMOL/L (98-107) Carbon Dioxide Level 24 MMOL/L (21-32) Anion Gap 8 mmol/L (5-15) Blood Urea Nitrogen 29 mg/dL (7-18) H Creatinine 1.2 MG/DL (0.55-1.30) Estimat Glomerular Filtration Rate > 60 mL/min (>60) Glucose Level 95 MG/DL (74-106) Calcium Level 9.1 MG/DL (8.5-10.1) Phosphorus Level 2.2 MG/DL (2.5-4.9) L Magnesium Level 1.8 MG/DL (1.8-2.4) Total Bilirubin 0.3 MG/DL (0.2-1.0) Aspartate Amino Transf (AST/SGOT) 15 U/L (15-37) Alanine Aminotransferase (ALT/SGPT) 20 U/L (12-78) Alkaline Phosphatase 114 U/L (46-116) Total Protein 7.2 G/DL (6.4-8.2) Albumin 2.7 G/DL (3.4-5.0) L Globulin 4.5 g/dL Albumin/Globulin Ratio 0.6 (1.0-2.7) L Vancomycin Level Trough 15.2 ug/mL (5.0-12.0) H Huma Keating MD May 15, 2018 10:53
--- NOTE | 2018-05-15 11:13 | Consultation ---
History of Present Illness General Date patient seen: May 14, 2018 Chief Complaint: Vomiting Reason for Consultation: COFFEE GROUNDS Present Illness HPI 67-year-old male from [facility], who presented to [place] ER last night with history of fever and weakness and lethargy. the pt has waxing and waning of consciousness. confused. agitated Allergies: Coded Allergies: NO KNOWN DRUG ALLERGIES (Verified Allergy, Unknown, 09/11/16) Medication History Scheduled Ascorbic Acid* (Vitamin C*), 500 MG GT DAILY, (Reported) Cran/Vitc/Mannose/Inulin/Brom (Uti-Stat Liquid), 3,875 MG GT DAILY, (Reported) Docusate Sodium* (Docusate Sodium*), 100 MG GT DAILY, (Reported) Famotidine (Famotidine), 20 MG GT DAILY, (Reported) Ferrous Sulfate (Ferrous Sulfate), 330 MG GT DAILY, (Reported) Folic Acid* (Folic Acid*), 1 MG GT DAILY, (Reported) Levothyroxine Sodium* (Levothyroxine Sodium*), 50 MCG GT DAILY, (Reported) Magnesium Hydroxide* (Milk Of Magnesia*), 30 ML GT HS, (Reported) Multivitamin Liquid* (Multi-Delyn*), 15 ML GT DAILY, (Reported) Omeprazole (Omeprazole), 20 MG ORAL DAILY, (Reported) Sucralfate* (Carafate*), 1 GM GT FOUR TIMES A DAY, (Reported) Zinc Sulfate (Zinc Sulfate*), 220 MG ORAL DAILY, (Reported) Scheduled PRN Acetaminophen (Acetaminophen), 640 MG GT Q4HR PRN for Prn Headache/Temp > 101, ( Reported) Bisacodyl (Dulcolax), 10 MG RC NEEDED PRN for IF MOM INEFFECTIVE, (Reported) Ipratropium/Albuterol Sulfate (DuoNeb 0.5-3(2.5)mg/3ml), 3 ML HHN Q4H PRN for Shortness of Breath Na Phos,M-B/Na Phos,Di-Ba* (Fleet Enema*), 133 ML RECTAL QOD PRN for IF DUCOLAX INEFFETIVE, (Reported) Patient History Healthcare decision maker Resuscitation status Full Code Advanced Directive on File No Past Medical/Surgical History Past Medical/Surgical History: (1) Hemoptysis (2) Weakness (3) Hyperglycemia (4) Leukocytosis (5) Gastrointestinal disorder (6) Hypokalemia (7) Vomiting (8) SIRS (systemic inflammatory response syndrome) (9) Severe sepsis with septic shock (10) Gastrointestinal hemorrhage (11) Leukocytosis (12) Gastritis (13) Aspiration pneumonia (14) C. difficile colitis (15) Hypothyroidism (16) Pyelonephritis (17) HTN (hypertension) (18) C. 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 (27) Severe erosive esophagitis (28) Septic shock (29) Acute on chronic respiratory failure (30) Upper GI bleed (31) Hypoalbuminemia (32) Anemia (33) Acute encephalopathy (34) Protein-calorie malnutrition, severe (35) Prerenal azotemia (36) Respiratory failure (37) Esophagitis (38) Iron deficiency (39) Dysphagia (40) Fecal impaction in rectum (41) Leukocytosis (42) Chronic respiratory failure (43) Diabetes (44) Sepsis (45) UTI (urinary tract infection) (46) HTN (hypertension) (47) Sepsis (48) Tracheostomy dependence (49) Fever (50) Anemia (51) Severe protein-calorie malnutrition (52) GI bleed (53) Feeding by G-tube (54) Respiratory failure, [id number] (55) Anemia (56) Anemia (57) Edema (58) Malnutrition (59) Upper GI bleed (60) Alzheimer's dementia (61) Upper respiratory infection (62) Dementia (63) Tracheobronchitis, chronic (64) Debility (65) Psychosis Review of Systems Psychiatric: Reports: prior hx, anxiety, depressed feelings, emotional problems Physical Exam General Appearance: no apparent distress, alert, confused, agitated Last 24 Hour Vital Signs Date Time Temp Pulse Resp B/P (MAP) Pulse Ox O2 Delivery O2 Flow Rate FiO2 05/15/18 09:16 83 16 40 05/15/18 08:00 Mechanical Ventilator 05/15/18 08:00 40.0 05/15/18 08:00 80 05/15/18 08:00 98.2 84 18 145/82 (103) 100 98.2 05/15/18 07:01 83 19 40 05/15/18 05:21 71 22 40 05/15/18 04:00 Mechanical Ventilator 05/15/18 04:00 40.0 05/15/18 04:00 98.4 94 19 129/68 (88) 100 98.4 05/15/18 03:54 98 05/15/18 03:30 98 19 40 05/15/18 01:30 92 20 40 05/15/18 00:00 Mechanical Ventilator 05/15/18 00:00 95 05/15/18 00:00 40.0 05/15/18 00:00 98.2 85 16 157/72 (100) 100 98.2 05/14/18 22:45 97 19 40 05/14/18 21:01 90 15 40 05/14/18 20:08 97.8 98 16 130/70 (90) 100 97.8 05/14/18 20:00 40.0 05/14/18 20:00 Mechanical Ventilator 05/14/18 20:00 96 05/14/18 19:30 94 17 40 05/14/18 16:19 84 16 40 05/14/18 16:00 Mechanical Ventilator 05/14/18 16:00 98.2 105 19 120/48 (72) 100 98.2 05/14/18 16:00 82 05/14/18 16:00 40.0 05/14/18 14:31 80 16 40 05/14/18 13:18 84 16 40 05/14/18 12:00 Mechanical Ventilator 05/14/18 12:00 40.0 05/14/18 12:00 98.1 88 19 106/57 (73) 100 98.1 05/14/18 12:00 79 Intake and Output 05/14/18 05/15/18 19:00 07:00 Intake Total 1067.75 ml 1035 ml Output Total 350 ml 325 ml Balance 717.75 ml 710 ml Free Water 100 ml IV Total 967.75 ml 935 ml Other 100 ml Output Urine Total 350 ml 325 ml Laboratory Tests Test 05/15/18 04:00 05/15/18 08:15 White Blood Count 12.9 K/UL (4.8-10.8) H Red Blood Count 2.88 M/UL (4.70-6.10) L Hemoglobin 7.5 G/DL (14.2-18.0) L Hematocrit 24.0 % (42.0-52.0) L Mean Corpuscular Volume 84 FL (80-99) Mean Corpuscular Hemoglobin 26.1 PG (27.0-31.0) L Mean Corpuscular Hemoglobin Concent 31.2 G/DL (32.0-36.0) L Red Cell Distribution Width 14.0 % (11.6-14.8) Platelet Count 242 K/UL (150-450) Mean Platelet Volume 8.1 FL (6.5-10.1) Neutrophils (%) (Auto) % (45.0-75.0) Lymphocytes (%) (Auto) % (20.0-45.0) Monocytes (%) (Auto) % (1.0-10.0) Eosinophils (%) (Auto) % (0.0-3.0) Basophils (%) (Auto) % (0.0-2.0) Differential Total Cells Counted 100 Neutrophils % (Manual) 78 % (45-75) H Lymphocytes % (Manual) 16 % (20-45) L Monocytes % (Manual) 3 % (1-10) Eosinophils % (Manual) 3 % (0-3) Basophils % (Manual) 0 % (0-2) Band Neutrophils 0 % (0-8) Platelet Estimate Adequate Platelet Morphology Normal Hypochromasia 3+ Anisocytosis 1+ Prothrombin Time 10.8 SEC (9.30-11.50) Prothromb Time International Ratio 1.0 (0.9-1.1) Activated Partial Thromboplast Time 32 SEC (23-33) Sodium Level 136 MMOL/L (136-145) Potassium Level 3.2 MMOL/L (3.5-5.1) L Chloride Level 104 MMOL/L (98-107) Carbon Dioxide Level 24 MMOL/L (21-32) Anion Gap 8 mmol/L (5-15) Blood Urea Nitrogen 29 mg/dL (7-18) H Creatinine 1.2 MG/DL (0.55-1.30) Estimat Glomerular Filtration Rate > 60 mL/min (>60) Glucose Level 95 MG/DL (74-106) Calcium Level 9.1 MG/DL (8.5-10.1) Phosphorus Level 2.2 MG/DL (2.5-4.9) L Magnesium Level 1.8 MG/DL (1.8-2.4) Total Bilirubin 0.3 MG/DL (0.2-1.0) Aspartate Amino Transf (AST/SGOT) 15 U/L (15-37) Alanine Aminotransferase (ALT/SGPT) 20 U/L (12-78) Alkaline Phosphatase 114 U/L (46-116) Total Protein 7.2 G/DL (6.4-8.2) Albumin 2.7 G/DL (3.4-5.0) L Globulin 4.5 g/dL Albumin/Globulin Ratio 0.6 (1.0-2.7) L Vancomycin Level Trough 15.2 ug/mL (5.0-12.0) H Height (Feet): 5 Height (Inches): 5.00 Weight (Pounds): 125 Medications Current Medications Medications (Trade) Dose Ordered Sig/Wanda Route PRN Reason Start Time Stop Time Status Last Admin Dose Admin Acetaminophen (Tylenol) 650 mg Q4H PRN ORAL T>100.5 05/13/18 20:30 06/12/18 20:29 Albuterol/ Ipratropium (Albuterol/ Ipratropium) 3 ml Q4H PRN HHN Shortness of Breath 05/13/18 20:30 05/18/18 20:29 Chlorhexidine Gluconate (Jasmin-Hex 2%) 1 applic DAILY@2000 TOPIC 05/15/18 20:00 06/14/18 19:59 Dextrose (Dextrose 50%) 25 ml PRN IV Hypoglycemia 05/13/18 20:45 06/12/18 20:44 Dextrose (Dextrose 50%) 50 ml PRN IV hypoglycemia 05/13/18 20:45 06/12/18 20:44 Dextrose/Sodium Chloride 1,000 ml @ 75 mls/hr [id number] IV 05/14/18 10:00 06/13/18 09:59 05/15/18 00:07 Heparin Sodium/ Sodium Chloride (Heparin 2000 units/Ns 1000ml premix) 2,000 unit ONCE INJ 05/15/18 08:11 05/15/18 23:59 Levothyroxine Sodium (Synthroid) 50 mcg DAILY GT 05/14/18 09:00 06/13/18 08:59 05/15/18 09:00 Lidocaine HCl (Xylocaine 1% 30ml) 30 ml ONCE INJ 05/15/18 08:10 05/15/18 23:59 Lorazepam (Ativan 2mg/ml 1ml) 2 mg Q2H PRN IV AGITATION 05/14/18 11:30 05/21/18 11:29 Morphine Sulfate (Morphine Sulfate) 4 mg EVERY 4 HOURS PRN IVP Severe Pain (Pain Scale 7-10) 05/13/18 20:30 05/20/18 20:29 Ondansetron HCl (Zofran) 4 mg Q6H PRN IVP Nausea & Vomiting 05/13/18 20:30 06/12/18 20:29 Pantoprazole (Protonix) 40 mg Q12H IVP 05/14/18 18:00 06/13/18 17:59 05/15/18 05:53 Polyethylene Glycol (Miralax) 17 gm DAILYPRN PRN ORAL Constipation 05/13/18 20:30 06/12/18 20:29 Quetiapine Fumarate (SEROquel) 25 mg Q6H PRN ORAL For Anxiety 05/14/18 11:30 06/13/18 11:29 Sucralfate (Carafate) 1 gm FOUR TIMES A DAY GT 05/13/18 21:00 06/12/18 20:59 05/14/18 20:41 Vancomycin HCl (Vanco rx to dose) 1 ea DAILY PRN MISC . 05/13/18 21:00 06/12/18 20:59 Vancomycin HCl 500 mg/Dextrose 110 ml @ 110 mls/hr Q12HR IVPB 05/14/18 09:00 05/19/18 08:59 05/15/18 09:00 Assessment/Plan Assessment/Plan encephalopathy due to [facility] Dementia -seroquel prn -the pt lacks capacity to make decisions Toma Ramirez MD May 15, 2018 11:13
--- NOTE | 2018-05-15 11:14 | General Progress Note ---
Assessment/Plan Assessment/Plan encephalopathy due [place] [facility] Dementia -seroquel prn -the pt lacks capacity to make decisions Subjective Date patient seen: May 15, 2018 Neurologic/Psychiatric: Reports: anxiety, depressed, emotional problems Allergies: Coded Allergies: NO KNOWN DRUG ALLERGIES (Verified Allergy, Unknown, 09/11/16) Subjective the pt is unable to understand process nor appreciate the info given to him Objective Last 24 Hour Vital Signs Date Time Temp Pulse Resp B/P (MAP) Pulse Ox O2 Delivery O2 Flow Rate FiO2 05/15/18 09:16 83 16 40 05/15/18 08:00 Mechanical Ventilator 05/15/18 08:00 40.0 05/15/18 08:00 80 05/15/18 08:00 98.2 84 18 145/82 (103) 100 98.2 05/15/18 07:01 83 19 40 05/15/18 05:21 71 22 40 05/15/18 04:00 Mechanical Ventilator 05/15/18 04:00 40.0 05/15/18 04:00 98.4 94 19 129/68 (88) 100 98.4 05/15/18 03:54 98 05/15/18 03:30 98 19 40 05/15/18 01:30 92 20 40 05/15/18 00:00 Mechanical Ventilator 05/15/18 00:00 95 05/15/18 00:00 40.0 05/15/18 00:00 98.2 85 16 157/72 (100) 100 98.2 05/14/18 22:45 97 19 40 05/14/18 21:01 90 15 40 05/14/18 20:08 97.8 98 16 130/70 (90) 100 97.8 05/14/18 20:00 40.0 05/14/18 20:00 Mechanical Ventilator 05/14/18 20:00 96 05/14/18 19:30 94 17 40 05/14/18 16:19 84 16 40 05/14/18 16:00 Mechanical Ventilator 05/14/18 16:00 98.2 105 19 120/48 (72) 100 98.2 05/14/18 16:00 82 05/14/18 16:00 40.0 05/14/18 14:31 80 16 40 05/14/18 13:18 84 16 40 9/4/18 12:00 Mechanical Ventilator 05/14/18 12:00 40.0 05/14/18 12:00 98.1 88 19 106/57 (73) 100 98.1 05/14/18 12:00 79 Intake and Output 05/14/18 05/15/18 19:00 07:00 Intake Total 1067.75 ml 1035 ml Output Total 350 ml 325 ml Balance 717.75 ml 710 ml Free Water 100 ml IV Total 967.75 ml 935 ml Other 100 ml Output Urine Total 350 ml 325 ml Laboratory Tests 05/15/18 04:00: White Blood Count 12.9H, Red Blood Count 2.88L, Hemoglobin 7.5L, Hematocrit 24.0L, Mean Corpuscular Volume 84, Mean Corpuscular Hemoglobin 26.1L, Mean Corpuscular Hemoglobin Concent 31.2L, Red Cell Distribution Width 14.0, Platelet Count 242, Mean Platelet Volume 8.1, Neutrophils (%) (Auto) , Lymphocytes (%) (Auto) , Monocytes (%) (Auto) , Eosinophils (%) (Auto) , Basophils (%) (Auto) , Differential Total Cells Counted 100, Neutrophils % ( Manual) 78H, Lymphocytes % (Manual) 16L, Monocytes % (Manual) 3, Eosinophils % ( Manual) 3, Basophils % (Manual) 0, Band Neutrophils 0, Platelet Estimate Adequate, Platelet Morphology Normal, Hypochromasia 3+, Anisocytosis 1+, Prothrombin Time 10.8, Prothromb Time International Ratio 1.0, Activated Partial Thromboplast Time 32, Sodium Level 136, Potassium Level 3.2L, Chloride Level 104, Carbon Dioxide Level 24, Anion Gap 8, Blood Urea Nitrogen 29H, Creatinine 1.2, Estimat Glomerular Filtration Rate > 60, Glucose Level 95, Calcium Level 9.1, Phosphorus Level 2.2L, Magnesium Level 1.8, Total Bilirubin 0.3, Aspartate Amino Transf (AST/SGOT) 15, Alanine Aminotransferase (ALT/SGPT) 20, Alkaline Phosphatase 114, Total Protein 7.2, Albumin 2.7L, Globulin 4.5, Albumin/Globulin Ratio 0.6L 05/15/18 08:15: Vancomycin Level Trough 15.2H Height (Feet): 5 Height (Inches): 5.00 Weight (Pounds): 125 General Appearance: no apparent distress, alert, confused, agitated Farhadi,Pantea MD May 15, 2018 11:14
--- NOTE | 2018-05-15 11:18 | General Progress Note ---
Progress Note Progress Note pt is not competent enough to consent for any procedures. No family available to sign for consents. Pt needs blood transfusion. His Hemoglobulin is critically low. Huma Keating MD May 15, 2018 11:18
--- NOTE | 2018-05-15 11:18 | General Progress Note ---
Progress Note Progress Note pt is not competent enough to consent for any procedures. No family available to sign for consents. He needs endoscopy to rule out GI bleeding. Huma Keating MD May 15, 2018 11:18
--- NOTE | 2018-05-15 11:54 | Anethesia Preoperative Eval ---
Anesthesia Pre-op PMH/ROS General Date of Evaluation: May 15, 2018 Time of Evaluation: 11:30 Anesthesiologist: aric ASA Score: ASA 4 Mallampati Score Class I : Soft palate, uvula, fauces, pillars visible Class II: Soft palate, uvula, fauces visible Class III: Soft palate, base of uvula visible Class IV: Only hard plate visible Mallampati Classification: Class II Surgeon: herminia Diagnosis: anemia Surgical Procedure: egd Anesthesia History: none Social History: smoking - unknown Family History: no anesthesia problems Allergies: Coded Allergies: NO KNOWN DRUG ALLERGIES (Verified Allergy, Unknown, 09/11/16) Medications: see eMAR Past Medical History Cardiovascular: Reports: CAD - cabg, other - chf Pulmonary: Reports: asthma, COPD, other - respiratory failure, tracheostomy, ventilator dependent Gastrointestinal/Genitourinary: Reports: GERD, other - dysphagia, g-tube Neurologic/Psychiatric: Reports: dementia, CVA, depression/anxiety, TIA, other - seizure disorder Endocrine: Reports: hypothyroidism Hematology/Immune: Reports: anemia Anesthesia Pre-op Phys. Exam Physician Exam Last Vital Signs Date Time Temp Pulse Resp B/P (MAP) Pulse Ox O2 Delivery O2 Flow Rate FiO2 05/15/18 11:12 86 19 40 05/15/18 08:00 Mechanical Ventilator 05/15/18 08:00 40.0 05/15/18 08:00 98.2 145/82 (103) 100 98.2 Constitutional: NAD Neurologic: other - hemiplegia Cardiovascular: RRR Respiratory: other - tracheostomy Gastrointestinal: other - g-tube Airway Exam Mallampati Score: Class II MO: limited Neck: tracheostomy TMD: 2fb ROM: limited Teeth: missing Anesthesia Pre-op A/P Labs Hematology Test 05/15/18 04:00 White Blood Count 12.9 K/UL (4.8-10.8) H Red Blood Count 2.88 M/UL (4.70-6.10) L Hemoglobin 7.5 G/DL (14.2-18.0) L Hematocrit 24.0 % (42.0-52.0) L Mean Corpuscular Volume 84 FL (80-99) Mean Corpuscular Hemoglobin 26.1 PG (27.0-31.0) L Mean Corpuscular Hemoglobin Concent 31.2 G/DL (32.0-36.0) L Red Cell Distribution Width 14.0 % (11.6-14.8) Platelet Count 242 K/UL (150-450) Mean Platelet Volume 8.1 FL (6.5-10.1) Neutrophils (%) (Auto) % (45.0-75.0) Lymphocytes (%) (Auto) % (20.0-45.0) Monocytes (%) (Auto) % (1.0-10.0) Eosinophils (%) (Auto) % (0.0-3.0) Basophils (%) (Auto) % (0.0-2.0) Differential Total Cells Counted 100 Neutrophils % (Manual) 78 % (45-75) H Lymphocytes % (Manual) 16 % (20-45) L Monocytes % (Manual) 3 % (1-10) Eosinophils % (Manual) 3 % (0-3) Basophils % (Manual) 0 % (0-2) Band Neutrophils 0 % (0-8) Platelet Estimate Adequate Platelet Morphology Normal Hypochromasia 3+ Anisocytosis 1+ Coagulation Test 05/15/18 04:00 Prothrombin Time 10.8 SEC (9.30-11.50) Prothromb Time International Ratio 1.0 (0.9-1.1) Activated Partial Thromboplast Time 32 SEC (23-33) Chemistry Test 05/15/18 04:00 Sodium Level 136 MMOL/L (136-145) Potassium Level 3.2 MMOL/L (3.5-5.1) L Chloride Level 104 MMOL/L (98-107) Carbon Dioxide Level 24 MMOL/L (21-32) Anion Gap 8 mmol/L (5-15) Blood Urea Nitrogen 29 mg/dL (7-18) H Creatinine 1.2 MG/DL (0.55-1.30) Estimat Glomerular Filtration Rate > 60 mL/min (>60) Glucose Level 95 MG/DL (74-106) Calcium Level 9.1 MG/DL (8.5-10.1) Phosphorus Level 2.2 MG/DL (2.5-4.9) L Magnesium Level 1.8 MG/DL (1.8-2.4) Total Bilirubin 0.3 MG/DL (0.2-1.0) Aspartate Amino Transf (AST/SGOT) 15 U/L (15-37) Alanine Aminotransferase (ALT/SGPT) 20 U/L (12-78) Alkaline Phosphatase 114 U/L (46-116) Total Protein 7.2 G/DL (6.4-8.2) Albumin 2.7 G/DL (3.4-5.0) L Globulin 4.5 g/dL Albumin/Globulin Ratio 0.6 (1.0-2.7) L Risk Assessment & Plan Assessment: [email or web address] Plan: mac Status Change Before Surgery: No Pre-Antibiotics Drug: Karin Arias MD May 15, 2018 11:54
[2018-05-15 12:00] VITALS: BP 117/76
[2018-05-15] MEDS ORDERED: DiphenhydrAMINE 50mg/ml Inj IVP PRN (12:00)
[2018-05-15] MEDS ORDERED: fentaNYL 100 mcg/2 mL IV PRN (12:00)
[2018-05-15] MEDS ORDERED: Midazolam 2mg/2ml Inj IVP PRN (12:00)
[2018-05-15] MEDS ORDERED: Atropine Inj 1mg/10ml Syr IV PRN (12:00)
[2018-05-15] MEDS ORDERED: NS 500ML IVPB ONE (12:00)
--- NOTE | 2018-05-15 12:00 | Pre-Procedure Note/Attestation ---
Pre-Procedure Note/Attestation Complete Prior to Procedure Planned Procedure: not applicable Procedure Narrative: egd Indications for Procedure Pre-Operative Diagnosis: GIB Attestation I attest that I discussed the nature of the procedure; its benefits; risks and complications; and alternatives (and the risks and benefits of such alternatives ), prior to the procedure, with the patient (or the patient's legal distribution sales representative). I attest that, if there was a reasonable possibility of needing a blood transfusion, the patient (or the patient's legal distribution sales representative) was given the [facility] standardized written summary, pursuant to the Mikel Fuad Blood Safety Act ([place] Health and Safety Code # 1645, as amended). I attest that I re-evaluated the patient just prior to the surgery and that there has been no change in the patient's H&P, except as documented below: Vitaliy Wilson MD May 15, 2018 12:00
--- NOTE | 2018-05-15 12:01 | GI Progress Note ---
Subjective Subjective patient has upper GIB no family to sign the consent needs urgent EGD today Objective Last 24 Hour Vital Signs Date Time Temp Pulse Resp B/P (MAP) Pulse Ox O2 Delivery O2 Flow Rate FiO2 05/15/18 11:12 86 19 40 05/15/18 09:16 83 16 40 05/15/18 08:00 Mechanical Ventilator 05/15/18 08:00 40.0 05/15/18 08:00 80 05/15/18 08:00 98.2 84 18 145/82 (103) 100 98.2 05/15/18 07:01 83 19 40 05/15/18 05:21 71 22 40 05/15/18 04:00 Mechanical Ventilator 05/15/18 04:00 40.0 05/15/18 04:00 98.4 94 19 129/68 (88) 100 98.4 05/15/18 03:54 98 05/15/18 03:30 98 19 40 05/15/18 01:30 92 20 40 05/15/18 00:00 Mechanical Ventilator 05/15/18 00:00 95 05/15/18 00:00 40.0 05/15/18 00:00 98.2 85 16 157/72 (100) 100 98.2 05/14/18 22:45 97 19 40 05/14/18 21:01 90 15 40 05/14/18 20:08 97.8 98 16 130/70 (90) 100 97.8 05/14/18 20:00 40.0 05/14/18 20:00 Mechanical Ventilator 05/14/18 20:00 96 05/14/18 19:30 94 17 40 05/14/18 16:19 84 16 40 05/14/18 16:00 Mechanical Ventilator 05/14/18 16:00 98.2 105 19 120/48 (72) 100 98.2 05/14/18 16:00 82 05/14/18 16:00 40.0 05/14/18 14:31 80 16 40 05/14/18 13:18 84 16 40 Intake and Output 05/14/18 05/15/18 19:00 07:00 Intake Total 1067.75 ml 1035 ml Output Total 350 ml 325 ml Balance 717.75 ml 710 ml Free Water 100 ml IV Total 967.75 ml 935 ml Other 100 ml Output Urine Total 350 ml 325 ml Laboratory Tests Test 05/15/18 04:00 05/15/18 08:15 White Blood Count 12.9 K/UL (4.8-10.8) H Red Blood Count 2.88 M/UL (4.70-6.10) L Hemoglobin 7.5 G/DL (14.2-18.0) L Hematocrit 24.0 % (42.0-52.0) L Mean Corpuscular Volume 84 FL (80-99) Mean Corpuscular Hemoglobin 26.1 PG (27.0-31.0) L Mean Corpuscular Hemoglobin Concent 31.2 G/DL (32.0-36.0) L Red Cell Distribution Width 14.0 % (11.6-14.8) Platelet Count 242 K/UL (150-450) Mean Platelet Volume 8.1 FL (6.5-10.1) Neutrophils (%) (Auto) % (45.0-75.0) Lymphocytes (%) (Auto) % (20.0-45.0) Monocytes (%) (Auto) % (1.0-10.0) Eosinophils (%) (Auto) % (0.0-3.0) Basophils (%) (Auto) % (0.0-2.0) Differential Total Cells Counted 100 Neutrophils % (Manual) 78 % (45-75) H Lymphocytes % (Manual) 16 % (20-45) L Monocytes % (Manual) 3 % (1-10) Eosinophils % (Manual) 3 % (0-3) Basophils % (Manual) 0 % (0-2) Band Neutrophils 0 % (0-8) Platelet Estimate Adequate Platelet Morphology Normal Hypochromasia 3+ Anisocytosis 1+ Prothrombin Time 10.8 SEC (9.30-11.50) Prothromb Time International Ratio 1.0 (0.9-1.1) Activated Partial Thromboplast Time 32 SEC (23-33) Sodium Level 136 MMOL/L (136-145) Potassium Level 3.2 MMOL/L (3.5-5.1) L Chloride Level 104 MMOL/L (98-107) Carbon Dioxide Level 24 MMOL/L (21-32) Anion Gap 8 mmol/L (5-15) Blood Urea Nitrogen 29 mg/dL (7-18) H Creatinine 1.2 MG/DL (0.55-1.30) Estimat Glomerular Filtration Rate > 60 mL/min (>60) Glucose Level 95 MG/DL (74-106) Calcium Level 9.1 MG/DL (8.5-10.1) Phosphorus Level 2.2 MG/DL (2.5-4.9) L Magnesium Level 1.8 MG/DL (1.8-2.4) Total Bilirubin 0.3 MG/DL (0.2-1.0) Aspartate Amino Transf (AST/SGOT) 15 U/L (15-37) Alanine Aminotransferase (ALT/SGPT) 20 U/L (12-78) Alkaline Phosphatase 114 U/L (46-116) Total Protein 7.2 G/DL (6.4-8.2) Albumin 2.7 G/DL (3.4-5.0) L Globulin 4.5 g/dL Albumin/Globulin Ratio 0.6 (1.0-2.7) L Vancomycin Level Trough 15.2 ug/mL (5.0-12.0) H Height (Feet): 5 Height (Inches): 5.00 Weight (Pounds): 125 Vitaliy Wilson MD May 15, 2018 12:01
--- NOTE | 2018-05-15 12:14 | Endoscopy Procedure Note ---
Endoscopy Procedure Note General Indication for Procedure: gib Procedures Performed: EGD Operative Findings/Diagnosis: esophagitis Specimen: none Pt Tolerated Procedure Well: Yes Estimated Blood Loss: none Anesthesia Anesthesiologist: luciano Anesthesia: MAC Inserted Devices Implant(s) used?: No GI Core Measures 50 yrs or older w/o bx or poly: Not Applicable 10yrs. F/U not recommended: Not Applicable Vitaliy Wilson MD May 15, 2018 12:14
--- NOTE | 2018-05-15 12:39 | Immediate Post-Op Evaluation ---
Immediate Post-Op Evalulation Immediate Post-Op Evalulation Procedure: egd Date of Evaluation: May 15, 2018 Time of Evaluation: 12:32 IV Fluids: 100ml 0.9ns Blood Products: none Estimated Blood Loss: negligible Blood Pressure Systolic: 124 Blood Pressure Diastolic: 63 Pulse Rate: 77 Respiratory Rate: 16 O2 Sat by Pulse Oximetry: 100 Temperature (Fahrenheit): 98.2 Pain Score (1-10): 0 Nausea: No Vomiting: No Complications none Patient Status: awake, reacts, patent, ventilated Hydration Status: adequate Drug: Karin Arias MD May 15, 2018 12:39
--- NOTE | 2018-05-15 12:43 | 48 Hour Post Anesthesia Eval ---
Post Anesthesia Evaluation Procedure: egd Date of Evaluation: May 15, 2018 Time of Evaluation: 12:34 Blood Pressure Systolic: 130 0: 65 Pulse Rate: 76 Respiratory Rate: 16 Temperature (Fahrenheit): 98.2 O2 Sat by Pulse Oximetry: 100 Airway: patent Nausea: No Vomiting: No Pain Intensity: 0 Hydration Status: adequate Cardiopulmonary Status: stable Mental Status/LOC: patient returned to baseline Post-Anesthesia Complications: none Follow-up care needed: N/A Karin Mcbride MD May 15, 2018 12:43
--- NOTE | 2018-05-15 13:06 | General Progress Note ---
Assessment/Plan Problem List: (1) Sepsis ICD Codes: A41.9 - Sepsis, unspecified organism SNOMED: 48348300 Qualifiers: Qualified Codes: A41.9 - Sepsis, unspecified organism (2) Tracheostomy dependence ICD Codes: Z93.0 - Tracheostomy status SNOMED: 194384753, 596903241 (3) Anemia ICD Codes: D64.9 - Anemia, unspecified SNOMED: 989923560 (4) Severe protein-calorie malnutrition ICD Codes: E43 - Unspecified severe protein-calorie malnutrition SNOMED: 455518839 (5) GI bleed ICD Codes: K92.2 - Gastrointestinal hemorrhage, unspecified SNOMED: 99657646 (6) Respiratory failure, [id number] ICD Codes: J96.20 - Respiratory failure, [id number] SNOMED: 78429988 (7) Diabetes ICD Codes: E11.9 - Type 2 diabetes mellitus without complications SNOMED: 45791369 (8) Gastritis ICD Codes: K29.70 - Gastritis SNOMED: 0931167 (9) HTN (hypertension) ICD Codes: I10 - HTN (hypertension) SNOMED: 27244980 Status: unchanged Assessment/Plan vent abx gi f/u cbc bmp am Subjective Constitutional: Reports: weakness Allergies: Coded Allergies: NO KNOWN DRUG ALLERGIES (Verified Allergy, Unknown, 09/11/16) All Systems: reviewed and negative except above Subjective trach vent altered Objective Last 24 Hour Vital Signs Date Time Temp Pulse Resp B/P (MAP) Pulse Ox O2 Delivery O2 Flow Rate FiO2 05/15/18 12:43 208.8 76 16 100 05/15/18 12:39 208.8 77 16 100 05/15/18 12:24 86 05/15/18 12:00 40.0 05/15/18 12:00 Mechanical Ventilator 05/15/18 11:12 86 19 40 05/15/18 09:16 83 16 40 05/15/18 08:00 Mechanical Ventilator 05/15/18 08:00 40.0 05/15/18 08:00 80 05/15/18 08:00 98.2 84 18 145/82 (103) 100 98.2 05/15/18 07:01 83 19 40 05/15/18 05:21 71 22 40 05/15/18 04:00 Mechanical Ventilator 05/15/18 04:00 40.0 05/15/18 04:00 98.4 94 19 129/68 (88) 100 98.4 05/15/18 03:54 98 05/15/18 03:30 98 19 40 05/15/18 01:30 92 20 40 05/15/18 00:00 Mechanical Ventilator 05/15/18 00:00 95 05/15/18 00:00 40.0 05/15/18 00:00 98.2 85 16 157/72 (100) 100 98.2 05/14/18 22:45 97 19 40 05/14/18 21:01 90 15 40 05/14/18 20:08 97.8 98 16 130/70 (90) 100 97.8 05/14/18 20:00 40.0 05/14/18 20:00 Mechanical Ventilator 05/14/18 20:00 96 05/14/18 19:30 94 17 40 05/14/18 16:19 84 16 40 05/14/18 16:00 Mechanical Ventilator 05/14/18 16:00 98.2 105 19 120/48 (72) 100 98.2 05/14/18 16:00 82 05/14/18 16:00 40.0 05/14/18 14:31 80 16 40 05/14/18 13:18 84 16 40 Intake and Output 05/14/18 05/15/18 19:00 07:00 Intake Total 1067.75 ml 1035 ml Output Total 350 ml 325 ml Balance 717.75 ml 710 ml Free Water 100 ml IV Total 967.75 ml 935 ml Other 100 ml Output Urine Total 350 ml 325 ml Laboratory Tests 05/15/18 04:00: White Blood Count 12.9H, Red Blood Count 2.88L, Hemoglobin 7.5L, Hematocrit 24.0L, Mean Corpuscular Volume 84, Mean Corpuscular Hemoglobin 26.1L, Mean Corpuscular Hemoglobin Concent 31.2L, Red Cell Distribution Width 14.0, Platelet Count 242, Mean Platelet Volume 8.1, Neutrophils (%) (Auto) , Lymphocytes (%) (Auto) , Monocytes (%) (Auto) , Eosinophils (%) (Auto) , Basophils (%) (Auto) , Differential Total Cells Counted 100, Neutrophils % ( Manual) 78H, Lymphocytes % (Manual) 16L, Monocytes % (Manual) 3, Eosinophils % ( Manual) 3, Basophils % (Manual) 0, Band Neutrophils 0, Platelet Estimate Adequate, Platelet Morphology Normal, Hypochromasia 3+, Anisocytosis 1+, Prothrombin Time 10.8, Prothromb Time International Ratio 1.0, Activated Partial Thromboplast Time 32, Sodium Level 136, Potassium Level 3.2L, Chloride Level 104, Carbon Dioxide Level 24, Anion Gap 8, Blood Urea Nitrogen 29H, Creatinine 1.2, Estimat Glomerular Filtration Rate > 60, Glucose Level 95, Calcium Level 9.1, Phosphorus Level 2.2L, Magnesium Level 1.8, Total Bilirubin 0.3, Aspartate Amino Transf (AST/SGOT) 15, Alanine Aminotransferase (ALT/SGPT) 20, Alkaline Phosphatase 114, Total Protein 7.2, Albumin 2.7L, Globulin 4.5, Albumin/Globulin Ratio 0.6L 05/15/18 08:15: Vancomycin Level Trough 15.2H Height (Feet): 5 Height (Inches): 5.00 Weight (Pounds): 125 General Appearance: lethargic EENT: normal ENT inspection Neck: normal alignment Cardiovascular: normal peripheral pulses, normal rate, regular rhythm Respiratory/Chest: chest wall non-tender, lungs clear, normal breath sounds Abdomen: normal bowel sounds, non tender, soft Extremities: normal inspection Edema: no edema noted Arm (L), no edema noted Arm (R), no edema noted Leg (L), no edema noted Leg (R), no edema noted Pedal (L), no edema noted Pedal (R), no edema noted Generalized Neurologic: motor weakness Skin: normal pigmentation, warm/dry Gato Viveros DO May 15, 2018 13:06
--- NOTE | 2018-05-15 13:23 | Infectious Diseases Prog Note ---
Assessment/Plan Assessment/Plan A: Sepsis PNA, vs UTI vs GI Blood Cx positive GPC - Cx Pend Leukocytosis WBCs 40K on admit Improving Fever - Resolved UGIB DM Asthma GERD Hx CVA/TIA Dementia Hx Seizures P: Continue vancomycin #2 and Ceftriaxone #1 Pending Cx / SP Zosyn x1 - f/u Blood, Sputum and Urine Cx Monitor CBC and Temps - f/u CXR - Vent support GI consult We will continue to follow the patient with you. Subjective Allergies: Coded Allergies: NO KNOWN DRUG ALLERGIES (Verified Allergy, Unknown, 09/11/16) Subjective Patient trached on a vent 40% O2 Afebrile Resolving leukocytosis Objective Vital Signs Last 24 Hour Vital Signs Date Time Temp Pulse Resp B/P (MAP) Pulse Ox O2 Delivery O2 Flow Rate FiO2 05/15/18 12:43 208.8 76 16 100 05/15/18 12:39 208.8 77 16 100 05/15/18 12:24 86 05/15/18 12:00 40.0 05/15/18 12:00 Mechanical Ventilator 05/15/18 11:12 86 19 40 05/15/18 09:16 83 16 40 05/15/18 08:00 Mechanical Ventilator 05/15/18 08:00 40.0 05/15/18 08:00 80 05/15/18 08:00 98.2 84 18 145/82 (103) 100 98.2 05/15/18 07:01 83 19 40 05/15/18 05:21 71 22 40 05/15/18 04:00 Mechanical Ventilator 05/15/18 04:00 40.0 05/15/18 04:00 98.4 94 19 129/68 (88) 100 98.4 05/15/18 03:54 98 05/15/18 03:30 98 19 40 05/15/18 01:30 92 20 40 05/15/18 00:00 Mechanical Ventilator 05/15/18 00:00 95 05/15/18 00:00 40.0 05/15/18 00:00 98.2 85 16 157/72 (100) 100 98.2 05/14/18 22:45 97 19 40 05/14/18 21:01 90 15 40 05/14/18 20:08 97.8 98 16 130/70 (90) 100 97.8 05/14/18 20:00 40.0 05/14/18 20:00 Mechanical Ventilator 05/14/18 20:00 96 05/14/18 19:30 94 17 40 05/14/18 16:19 84 16 40 05/14/18 16:00 Mechanical Ventilator 05/14/18 16:00 98.2 105 19 120/48 (72) 100 98.2 05/14/18 16:00 82 05/14/18 16:00 40.0 05/14/18 14:31 80 16 40 Height (Feet): 5 Height (Inches): 5.00 Weight (Pounds): 125 Objective General Appearance: NADnonverbal Head: NCAT, MMM, Tracheotomy, Respiratory: Mech breath on Vent Cardiovascular: regular rate, rhythm, no edema Gastrointestinal: Soft, NT, ND, + BS, Gtube No Erythema, or purulent drainaged Microbiology Date/Time Source Procedure Growth Status 05/13/18 21:40 Blood Blood Culture - Preliminary NO GROWTH AFTER 24 HOURS Resulted 05/13/18 19:45 Blood Blood Culture - Preliminary Resulted 05/13/18 21:00 Urine,Clean Catch Urine Culture - Preliminary Gram Negative Bacillus 1 Resulted 05/14/18 00:20 Rectum Received Laboratory Tests Test 05/15/18 04:00 05/15/18 08:15 White Blood Count 12.9 K/UL (4.8-10.8) H Red Blood Count 2.88 M/UL (4.70-6.10) L Hemoglobin 7.5 G/DL (14.2-18.0) L Hematocrit 24.0 % (42.0-52.0) L Mean Corpuscular Volume 84 FL (80-99) Mean Corpuscular Hemoglobin 26.1 PG (27.0-31.0) L Mean Corpuscular Hemoglobin Concent 31.2 G/DL (32.0-36.0) L Red Cell Distribution Width 14.0 % (11.6-14.8) Platelet Count 242 K/UL (150-450) Mean Platelet Volume 8.1 FL (6.5-10.1) Neutrophils (%) (Auto) % (45.0-75.0) Lymphocytes (%) (Auto) % (20.0-45.0) Monocytes (%) (Auto) % (1.0-10.0) Eosinophils (%) (Auto) % (0.0-3.0) Basophils (%) (Auto) % (0.0-2.0) Differential Total Cells Counted 100 Neutrophils % (Manual) 78 % (45-75) H Lymphocytes % (Manual) 16 % (20-45) L Monocytes % (Manual) 3 % (1-10) Eosinophils % (Manual) 3 % (0-3) Basophils % (Manual) 0 % (0-2) Band Neutrophils 0 % (0-8) Platelet Estimate Adequate Platelet Morphology Normal Hypochromasia 3+ Anisocytosis 1+ Prothrombin Time 10.8 SEC (9.30-11.50) Prothromb Time International Ratio 1.0 (0.9-1.1) Activated Partial Thromboplast Time 32 SEC (23-33) Sodium Level 136 MMOL/L (136-145) Potassium Level 3.2 MMOL/L (3.5-5.1) L Chloride Level 104 MMOL/L (98-107) Carbon Dioxide Level 24 MMOL/L (21-32) Anion Gap 8 mmol/L (5-15) Blood Urea Nitrogen 29 mg/dL (7-18) H Creatinine 1.2 MG/DL (0.55-1.30) Estimat Glomerular Filtration Rate > 60 mL/min (>60) Glucose Level 95 MG/DL (74-106) Calcium Level 9.1 MG/DL (8.5-10.1) Phosphorus Level 2.2 MG/DL (2.5-4.9) L Magnesium Level 1.8 MG/DL (1.8-2.4) Total Bilirubin 0.3 MG/DL (0.2-1.0) Aspartate Amino Transf (AST/SGOT) 15 U/L (15-37) Alanine Aminotransferase (ALT/SGPT) 20 U/L (12-78) Alkaline Phosphatase 114 U/L (46-116) Total Protein 7.2 G/DL (6.4-8.2) Albumin 2.7 G/DL (3.4-5.0) L Globulin 4.5 g/dL Albumin/Globulin Ratio 0.6 (1.0-2.7) L Vancomycin Level Trough 15.2 ug/mL (5.0-12.0) H Current Medications Medications (Trade) Dose Ordered Sig/Wanda Route PRN Reason Start Time Stop Time Status Last Admin Dose Admin Acetaminophen (Tylenol) 650 mg Q4H PRN ORAL T>100.5 05/13/18 20:30 06/12/18 20:29 Al Hydroxide/Mg Hydroxide (Mylanta) 15 ml Q1H PRN ORAL gi upset 05/15/18 12:00 05/15/18 20:00 Albuterol/ Ipratropium (Albuterol/ Ipratropium) 3 ml Q4H PRN HHN Shortness of Breath 05/13/18 20:30 05/18/18 20:29 Atropine Sulfate (Atropine) 0.5 mg Q5M PRN IV bpm less than 45 05/15/18 12:00 05/15/18 20:00 Chlorhexidine Gluconate (Jasmin-Hex 2%) 1 applic DAILY@2000 TOPIC 05/15/18 20:00 06/14/18 19:59 Dextrose (Dextrose 50%) 25 ml PRN IV Hypoglycemia 05/13/18 20:45 06/12/18 20:44 Dextrose (Dextrose 50%) 50 ml PRN IV hypoglycemia 05/13/18 20:45 06/12/18 20:44 Dextrose/Sodium Chloride 1,000 ml @ 75 mls/hr [id number] IV 05/14/18 10:00 06/13/18 09:59 05/15/18 00:07 Diphenhydramine HCl (Benadryl) 25 mg Q15M PRN IVP Itching 05/15/18 12:00 05/15/18 20:00 Fentanyl Citrate (Sublimaze 100 mcg/2 mL) 25 mcg Q10M PRN IV Moderate Pain (Pain Scale 4-6) 05/15/18 12:00 05/15/18 20:00 Heparin Sodium/ Sodium Chloride (Heparin 2000 units/Ns 1000ml premix) 2,000 unit ONCE INJ 05/15/18 08:11 05/15/18 23:59 Hydralazine HCl (Apresoline) 5 mg Q30M PRN IV SBP>160 OR___/DBP>90 OR___ 05/15/18 12:00 05/15/18 20:00 Levothyroxine Sodium (Synthroid) 50 mcg DAILY GT 05/14/18 09:00 06/13/18 08:59 05/15/18 09:00 Lidocaine HCl (Xylocaine 1% 30ml) 30 ml ONCE INJ 05/15/18 08:10 05/15/18 23:59 Lorazepam (Ativan 2mg/ml 1ml) 2 mg Q2H PRN IV AGITATION 05/14/18 11:30 05/21/18 11:29 Midazolam HCl (Versed 2mg/2ml vial) 1 mg Q15M PRN IVP For Anxiety 05/15/18 12:00 05/15/18 20:00 Morphine Sulfate (Morphine Sulfate) 4 mg EVERY 4 HOURS PRN IVP Severe Pain (Pain Scale 7-10) 05/13/18 20:30 05/20/18 20:29 Ondansetron HCl (Zofran) 4 mg Q1H PRN IVP Nausea & Vomiting 05/15/18 12:00 05/15/18 20:00 Ondansetron HCl (Zofran) 4 mg Q6H PRN IVP Nausea & Vomiting 05/13/18 20:30 06/12/18 20:29 Pantoprazole (Protonix) 40 mg Q12H IVP 05/14/18 18:00 06/13/18 17:59 05/15/18 05:53 Polyethylene Glycol (Miralax) 17 gm DAILYPRN PRN ORAL Constipation 05/13/18 20:30 06/12/18 20:29 Quetiapine Fumarate (SEROquel) 25 mg Q6H PRN ORAL For Anxiety 05/14/18 11:30 06/13/18 11:29 Sodium Chloride 1,000 ml @ 10 mls/hr Q24H IVLG 05/15/18 11:55 05/15/18 13:54 Sucralfate (Carafate) 1 gm FOUR TIMES A DAY GT 05/13/18 21:00 06/12/18 20:59 05/14/18 20:41 Vancomycin HCl (Vanco rx to dose) 1 ea DAILY PRN MISC . 05/13/18 21:00 06/12/18 20:59 Vancomycin HCl 500 mg/Dextrose 110 ml @ 110 mls/hr Q12HR IVPB 05/14/18 09:00 05/19/18 08:59 05/15/18 09:00 John Fiore MD May 15, 2018 13:23
[2018-05-15] MEDS ORDERED: cefTRIAXone 1 GM in D5W 55 ML IVPB SCH (15:00)
--- NOTE | 2018-05-15 15:57 | Diagnostic Imaging Report ---
Indications: Needs long-term IV access Technique: Procedure performed at bedside. Procedural timeout performed. Ultrasound confirms patent compressible right basilic vein. Total sterile technique, including sterile probe cover and sterile gel, sterile gloves, hand hygiene, hat, mask,, sterile gown, large sterile drape, and preparation with 2% chlorhexidine utilized. Local anesthesia with 1% lidocaine. Under real-time ultrasound guidance, puncture is a vein using 21-gauge needle, passage 0.018 guidewire, exchange for 5 Portuguese peel-away sheath. 5 Portuguese dual-lumen power PICC cut to 30 cm. It was inserted through the peel-away sheath. Peel-away sheath and guidewire removed. Catheter fixed to the skin. Both catheter ports aspirated and flushed. Patient tolerated procedure well, without immediate complication. Followup chest x-ray obtained, documents catheter tip position at the cavoatrial junction Impression: Successful bedside placement of right arm PICC under sonographic guidance, as described above.
[2018-05-15 16:00] VITALS: BP 132/69
--- NOTE | 2018-05-15 16:04 | Cardiology Report ---
APPROVED REPORT EKG Measurement Heart [id number] Sinus tachycardia Otherwise normal ECG
--- NOTE | 2018-05-15 17:45 | Procedure Note ---
DATE OF PROCEDURE: 05/15/2018 SURGEON: Vitaliy Wilson M.D. ANESTHESIOLOGIST: Dr. Kaplan. REFERRING PHYSICIAN: Gato Viveros D.O. PROCEDURE: Upper endoscopy. ANESTHESIA: Per Dr. Kaplan. INSTRUMENT: Olympus adult flexible upper endoscope. INDICATION: Upper GI bleeding. The procedure, risks, benefits, and possible consequences, including hemorrhage, aspiration, perforation and infection, and alternative treatments, were explained to the patient/legal guardian by Dr. Vitaliy Wilson and the patient/legal guardian understood and accepted these risks. DESCRIPTION OF PROCEDURE: After informed consent was obtained and the patient was adequately sedated, Olympus upper endoscope was advanced from the mouth into the esophagus. 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 We could not pass the scope. The patient was not tolerating it trying to push the scope through, so we decided at this time not to pursue further pushing the scope through the stricture. At this time, I decided not to do dilation because the risk did not justify the benefits. The patient already had a G-tube getting G-tube feeding. esophagus and trying to get to the stomach would not add much at this point on this for the source of bleeding. This bleeding seems to be stabilized. There is no melena or hematochezia today, so our plan will be to monitor him, start him back on his G-tube feeding, keep his hemoglobin above 7. If the patient shows signs and symptoms of active upper GI bleeding like melena or hematochezia, significant drop in hemoglobin and hematocrit again, at that point, we will re-scope and dilate at that time. I want to thank Dr. Gato Viveros for this kind referral. Vitaliy Wilson M.D. DR: Felipe JOB#: [id number] CC:
[2018-05-15 20:00] VITALS: BP 136/85
[2018-05-15] MEDS ORDERED: Dyna-Hex 2% Top Sol 2oz TOPIC SCH ×2 (20:00)
[2018-05-15] MEDS: Dyna-Hex 2% Top Sol 2oz TOPIC SCH (20:47)
[2018-05-15] MEDS: cefTRIAXone 1 GM in D5W 55 ML IVPB SCH (20:55)
[2018-05-16] VITALS: BP 157/76
[2018-05-16] MEDS: D5NS 1,000 ML IV SCH ×2 (02:16→15:45)
[2018-05-16 04:00] VITALS: BP 116/66
[2018-05-16 05:55] LABS: HEMATOCRIT 23.3 % (42.0-52.0); HEMOGLOBIN 7.7 G/DL (14.2-18.0); MEAN CORPUSCULAR VOLUME 83 FL (80-99); PLATELET COUNT 199 K/UL (150-450); RED BLOOD COUNT 2.81 M/UL (4.70-6.10); RED CELL DISTRIBUTION WIDTH 13.2 % (11.6-14.8); WHITE BLOOD COUNT 10.7 K/UL (4.8-10.8)
[2018-05-16 06:15] LABS: ALANINE AMINOTRANSFERASE 16 U/L (12-78); ALBUMIN 2.3 G/DL (3.4-5.0); ALBUMIN/GLOBULIN RATIO 0.6 (1.0-2.7); ALKALINE PHOSPHATASE 94 U/L (46-116); ANION GAP 11 mmol/L (5-15); ASPARTATE AMINO TRANSFERASE 12 U/L (15-37); BILIRUBIN,TOTAL 0.3 MG/DL (0.2-1.0); BLOOD UREA NITROGEN 18 mg/dL (7-18); CARBON DIOXIDE 20 MMOL/L (21-32); CHLORIDE 108 MMOL/L (98-107); PHOSPHORUS 2.4 MG/DL (2.5-4.9); POTASSIUM 2.8 MMOL/L (3.5-5.1); SODIUM 139 MMOL/L (136-145)
[2018-05-16] MEDS: Pantoprazole Inj IVP SCH ×2 (06:21→18:21)
[2018-05-16 08:00] VITALS: BP 119/66
--- NOTE | 2018-05-16 08:04 | Infectious Diseases Prog Note ---
Assessment/Plan Assessment/Plan A: Sepsis PNA, vs UTI vs GI Blood Cx positive - Likely contaminant GPC - Cx Pend Leukocytosis WBCs 40K on admit Improving Fever - Resolved UGIB DM Asthma GERD Hx CVA/TIA Dementia Hx Seizures P: D/C va Continue vancomycin #3 and Ceftriaxone #2 Pending Cx - will likely D/C vancomycin tomorrow if second blood cx set neg 05/13 SP Zosyn x1 - f/u Blood, Sputum and Urine Cx Monitor CBC and Temps - f/u CXR - Vent support GI consult We will continue to follow the patient with you. Subjective Allergies: Coded Allergies: NO KNOWN DRUG ALLERGIES (Verified Allergy, Unknown, 09/11/16) Subjective Patient trached on a vent 40% O2 Afebrile Objective Vital Signs Last 24 Hour Vital Signs Date Time Temp Pulse Resp B/P (MAP) Pulse Ox O2 Delivery O2 Flow Rate FiO2 05/16/18 07:09 61 16 40 05/16/18 05:16 68 16 40 05/16/18 04:00 60 05/16/18 04:00 98.2 74 18 116/66 (83) 100 98.2 05/16/18 04:00 Mechanical Ventilator 05/16/18 04:00 40.0 05/16/18 03:10 73 20 40 05/16/18 01:20 89 21 40 05/16/18 00:00 99.0 83 21 157/76 (103) 98 99.0 05/16/18 00:00 Mechanical Ventilator 05/16/18 00:00 40.0 05/16/18 00:00 73 05/15/18 23:05 75 22 40 05/15/18 21:30 80 17 40 05/15/18 20:00 73 05/15/18 20:00 99.0 77 21 136/85 (102) 99 99.0 05/15/18 20:00 40.0 05/15/18 20:00 Mechanical Ventilator 05/15/18 18:55 78 20 40 05/15/18 16:42 73 22 40 05/15/18 16:00 98.2 86 18 132/69 (90) 99 98.2 05/15/18 16:00 69 05/15/18 16:00 40.0 05/15/18 16:00 Mechanical Ventilator 05/15/18 15:18 77 21 40 05/15/18 13:29 86 16 40 05/15/18 12:43 208.8 76 16 100 05/15/18 12:39 208.8 77 16 100 05/15/18 12:24 86 05/15/18 12:00 40.0 05/15/18 12:00 Mechanical Ventilator 05/15/18 12:00 98.1 86 20 117/76 (90) 98 98.1 05/15/18 11:12 86 19 40 05/15/18 09:16 83 16 40 Height (Feet): 5 Height (Inches): 5.00 Weight (Pounds): 125 Objective General Appearance: NAD - nonverbal, On vent Head: NCAT, MMM, Tracheotomy, Respiratory: Mech breath, no Wheezing Cardiovascular: regular rate, rhythm, no edema Gastrointestinal: Soft, NT, ND, + BS, Gtube No Erythema, or purulent drainaged Microbiology Date/Time Source Procedure Growth Status 05/13/18 21:40 Blood Blood Culture - Preliminary NO GROWTH AFTER 48 HOURS Resulted 05/13/18 19:45 Blood Blood Culture - Preliminary Staphylococcus Sp Coag Neg Resulted 05/13/18 21:00 Urine,Clean Catch Urine Culture - Preliminary Gram Negative Bacillus 1 Resulted 05/14/18 00:20 Rectum Received Laboratory Tests Test 05/15/18 08:15 05/16/18 04:00 Vancomycin Level Trough 15.2 ug/mL (5.0-12.0) H White Blood Count 10.7 K/UL (4.8-10.8) Red Blood Count 2.81 M/UL (4.70-6.10) L Hemoglobin 7.7 G/DL (14.2-18.0) L Hematocrit 23.3 % (42.0-52.0) L Mean Corpuscular Volume 83 FL (80-99) Mean Corpuscular Hemoglobin 27.4 PG (27.0-31.0) Mean Corpuscular Hemoglobin Concent 33.1 G/DL (32.0-36.0) Red Cell Distribution Width 13.2 % (11.6-14.8) Platelet Count 199 K/UL (150-450) Mean Platelet Volume 8.3 FL (6.5-10.1) Neutrophils (%) (Auto) % (45.0-75.0) Lymphocytes (%) (Auto) % (20.0-45.0) Monocytes (%) (Auto) % (1.0-10.0) Eosinophils (%) (Auto) % (0.0-3.0) Basophils (%) (Auto) % (0.0-2.0) Neutrophils % (Manual) Pending Lymphocytes % (Manual) Pending Platelet Estimate Pending Platelet Morphology Pending Sodium Level 139 MMOL/L (136-145) Potassium Level 2.8 MMOL/L (3.5-5.1) L Chloride Level 108 MMOL/L (98-107) H Carbon Dioxide Level 20 MMOL/L (21-32) L Anion Gap 11 mmol/L (5-15) Blood Urea Nitrogen 18 mg/dL (7-18) Creatinine 1.0 MG/DL (0.55-1.30) Estimat Glomerular Filtration Rate > 60 mL/min (>60) Glucose Level 436 MG/DL (74-106) #H Calcium Level 8.0 MG/DL (8.5-10.1) L Phosphorus Level 2.4 MG/DL (2.5-4.9) L Magnesium Level 1.6 MG/DL (1.8-2.4) L Total Bilirubin 0.3 MG/DL (0.2-1.0) Aspartate Amino Transf (AST/SGOT) 12 U/L (15-37) L Alanine Aminotransferase (ALT/SGPT) 16 U/L (12-78) Alkaline Phosphatase 94 U/L (46-116) Total Protein 6.2 G/DL (6.4-8.2) L Albumin 2.3 G/DL (3.4-5.0) L Globulin 3.9 g/dL Albumin/Globulin Ratio 0.6 (1.0-2.7) L Current Medications Medications (Trade) Dose Ordered Sig/Wanda Route PRN Reason Start Time Stop Time Status Last Admin Dose Admin Acetaminophen (Tylenol) 650 mg Q4H PRN ORAL T>100.5 05/13/18 20:30 06/12/18 20:29 Albuterol/ Ipratropium (Albuterol/ Ipratropium) 3 ml Q4H PRN HHN Shortness of Breath 05/13/18 20:30 05/18/18 20:29 Ceftriaxone Sodium 1 gm/ Dextrose 55 ml @ 110 mls/hr Q24H IVPB 05/15/18 21:00 05/22/18 20:59 05/15/18 20:55 Chlorhexidine Gluconate (Jasmin-Hex 2%) 1 applic DAILY@2000 TOPIC 05/15/18 20:00 06/14/18 19:59 05/15/18 20:47 Dextrose (Dextrose 50%) 25 ml PRN IV Hypoglycemia 05/13/18 20:45 06/12/18 20:44 Dextrose (Dextrose 50%) 50 ml PRN IV hypoglycemia 05/13/18 20:45 06/12/18 20:44 Dextrose/Sodium Chloride 1,000 ml @ 75 mls/hr [id number] IV 05/14/18 10:00 06/13/18 09:59 05/16/18 02:16 Levothyroxine Sodium (Synthroid) 50 mcg DAILY GT 05/14/18 09:00 06/13/18 08:59 05/15/18 09:00 Lorazepam (Ativan 2mg/ml 1ml) 2 mg Q2H PRN IV AGITATION 05/14/18 11:30 05/21/18 11:29 Morphine Sulfate (Morphine Sulfate) 4 mg EVERY 4 HOURS PRN IVP Severe Pain (Pain Scale 7-10) 05/13/18 20:30 05/20/18 20:29 Ondansetron HCl (Zofran) 4 mg Q6H PRN IVP Nausea & Vomiting 05/13/18 20:30 06/12/18 20:29 Pantoprazole (Protonix) 40 mg Q12H IVP 05/14/18 18:00 06/13/18 17:59 05/16/18 06:21 Polyethylene Glycol (Miralax) 17 gm DAILYPRN PRN ORAL Constipation 05/13/18 20:30 06/12/18 20:29 Quetiapine Fumarate (SEROquel) 25 mg Q6H PRN ORAL For Anxiety 05/14/18 11:30 06/13/18 11:29 Sucralfate (Carafate) 1 gm FOUR TIMES A DAY GT 05/13/18 21:00 06/12/18 20:59 05/15/18 20:51 Vancomycin HCl (Vanco rx to dose) 1 ea DAILY PRN MISC . 05/13/18 21:00 06/12/18 20:59 Vancomycin HCl 500 mg/Dextrose 110 ml @ 110 mls/hr Q12HR IVPB 05/14/18 09:00 05/19/18 08:59 05/15/18 20:49 John Fiore MD May 16, 2018 08:04
[2018-05-16] MEDS: Sucralfate 1gm tab GT SCH ×4 (08:23→20:26)
[2018-05-16] MEDS: Vancomycin 500mg/D5W 110ml IVPB SCH ×4 (09:07→20:27)
--- NOTE | 2018-05-16 10:50 | GI Progress Note ---
Assessment/Plan Problems: (1) Anemia ICD Codes: D64.9 - Anemia, unspecified SNOMED: 505143853 (2) Severe protein-calorie malnutrition ICD Codes: E43 - Unspecified severe protein-calorie malnutrition SNOMED: 036590398 (3) GI bleed ICD Codes: K92.2 - Gastrointestinal hemorrhage, unspecified SNOMED: 36460569 (4) Feeding by G-tube ICD Codes: Z93.1 - Gastrostomy status SNOMED: 719172301, 710388061 (5) Respiratory failure, pamls-ux-hxeprvj ICD Codes: J96.20 - Respiratory failure, icagm-xg-woyxplv SNOMED: 80786554 (6) Anemia ICD Codes: D64.9 - Anemia, unspecified SNOMED: 586282049 (7) Edema ICD Codes: R60.9 - Edema, unspecified SNOMED: 694402070, 152418457 (8) Upper GI bleed ICD Codes: K92.2 - Upper gastrointestinal hemorrhage SNOMED: 28799958 (9) Malnutrition ICD Codes: E46 - Unspecified protein-calorie malnutrition SNOMED: 53272902 Status: unchanged Status Narrative Discussed with Dr. Wilson. Assessment/Plan s/p EGD, see full report. 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 No dilation performed. - esophagitis ppi BID + carafate prn transfusions monitor H&H, prn transfusions bowel regime fu labs The patient was seen and examined at bedside and all new and available data was reviewed in the patients chart. I agree with the above findings, impression and plan. (Patient seen earlier today. Signature stamp does not reflect patient encounter time.). - Vitaliy Wilson MD Subjective Subjective limited Objective Last 24 Hour Vital Signs Date Time Temp Pulse Resp B/P (MAP) Pulse Ox O2 Delivery O2 Flow Rate FiO2 05/16/18 09:19 62 17 40 05/16/18 08:29 56 05/16/18 08:00 40.0 05/16/18 08:00 98.1 77 20 119/66 (83) 100 98.1 05/16/18 08:00 Mechanical Ventilator 05/16/18 07:09 61 16 40 05/16/18 05:16 68 16 40 05/16/18 04:00 60 05/16/18 04:00 98.2 74 18 116/66 (83) 100 98.2 05/16/18 04:00 Mechanical Ventilator 05/16/18 04:00 40.0 05/16/18 03:10 73 20 40 05/16/18 01:20 89 21 40 05/16/18 00:00 99.0 83 21 157/76 (103) 98 99.0 05/16/18 00:00 Mechanical Ventilator 05/16/18 00:00 40.0 05/16/18 00:00 73 05/15/18 23:05 75 22 40 05/15/18 21:30 80 17 40 05/15/18 20:00 73 05/15/18 20:00 99.0 77 21 136/85 (102) 99 99.0 05/15/18 20:00 40.0 05/15/18 20:00 Mechanical Ventilator 05/15/18 18:55 78 20 40 05/15/18 16:42 73 22 40 05/15/18 16:00 98.2 86 18 132/69 (90) 99 98.2 05/15/18 16:00 69 05/15/18 16:00 40.0 05/15/18 16:00 Mechanical Ventilator 05/15/18 15:18 77 21 40 05/15/18 13:29 86 16 40 05/15/18 12:43 208.8 76 16 100 05/15/18 12:39 208.8 77 16 100 05/15/18 12:24 86 05/15/18 12:00 40.0 05/15/18 12:00 Mechanical Ventilator 05/15/18 12:00 98.1 86 20 117/76 (90) 98 98.1 05/15/18 11:12 86 19 40 Intake and Output 05/15/18 05/16/18 19:00 07:00 Intake Total 775 ml 1070 ml Output Total 350 ml 675 ml Balance 425 ml 395 ml Free Water 100 ml IV Total 635 ml 840 ml Tube Feeding 40 ml 230 ml Output Urine Total 350 ml 675 ml Laboratory Tests Test 05/16/18 04:00 White Blood Count 10.7 K/UL (4.8-10.8) Red Blood Count 2.81 M/UL (4.70-6.10) L Hemoglobin 7.7 G/DL (14.2-18.0) L Hematocrit 23.3 % (42.0-52.0) L Mean Corpuscular Volume 83 FL (80-99) Mean Corpuscular Hemoglobin 27.4 PG (27.0-31.0) Mean Corpuscular Hemoglobin Concent 33.1 G/DL (32.0-36.0) Red Cell Distribution Width 13.2 % (11.6-14.8) Platelet Count 199 K/UL (150-450) Mean Platelet Volume 8.3 FL (6.5-10.1) Neutrophils (%) (Auto) % (45.0-75.0) Lymphocytes (%) (Auto) % (20.0-45.0) Monocytes (%) (Auto) % (1.0-10.0) Eosinophils (%) (Auto) % (0.0-3.0) Basophils (%) (Auto) % (0.0-2.0) Differential Total Cells Counted 100 Neutrophils % (Manual) 72 % (45-75) Lymphocytes % (Manual) 18 % (20-45) L Monocytes % (Manual) 9 % (1-10) Eosinophils % (Manual) 1 % (0-3) Basophils % (Manual) 0 % (0-2) Band Neutrophils 0 % (0-8) Platelet Estimate Adequate Platelet Morphology Normal Hypochromasia 1+ Sodium Level 139 MMOL/L (136-145) Potassium Level 2.8 MMOL/L (3.5-5.1) L Chloride Level 108 MMOL/L (98-107) H Carbon Dioxide Level 20 MMOL/L (21-32) L Anion Gap 11 mmol/L (5-15) Blood Urea Nitrogen 18 mg/dL (7-18) Creatinine 1.0 MG/DL (0.55-1.30) Estimat Glomerular Filtration Rate > 60 mL/min (>60) Glucose Level 436 MG/DL (74-106) #H Calcium Level 8.0 MG/DL (8.5-10.1) L Phosphorus Level 2.4 MG/DL (2.5-4.9) L Magnesium Level 1.6 MG/DL (1.8-2.4) L Total Bilirubin 0.3 MG/DL (0.2-1.0) Aspartate Amino Transf (AST/SGOT) 12 U/L (15-37) L Alanine Aminotransferase (ALT/SGPT) 16 U/L (12-78) Alkaline Phosphatase 94 U/L (46-116) Total Protein 6.2 G/DL (6.4-8.2) L Albumin 2.3 G/DL (3.4-5.0) L Globulin 3.9 g/dL Albumin/Globulin Ratio 0.6 (1.0-2.7) L Height (Feet): 5 Height (Inches): 5.00 Weight (Pounds): 125 General Appearance: no apparent distress Cardiovascular: normal rate Respiratory/Chest: normal breath sounds, no respiratory distress Abdominal Exam: normal bowel sounds, non tender, soft, GT site Extremities: non-tender Emanuel Quesada NP May 16, 2018 10:50
--- NOTE | 2018-05-16 11:22 | Pulmonolgy Critical Care Note ---
Critical Care - Asmt/Plan Problems: (1) Respiratory failure, cdtnl-bf-ypizzxm (2) GI bleed (3) Sepsis (4) Anemia (5) Feeding by G-tube (6) Severe protein-calorie malnutrition (7) Psychosis (8) Dementia Critical Care - Objective Last 24 Hour Vital Signs Date Time Temp Pulse Resp B/P (MAP) Pulse Ox O2 Delivery O2 Flow Rate FiO2 05/16/18 09:19 62 17 40 05/16/18 08:29 56 05/16/18 08:00 40.0 05/16/18 08:00 98.1 77 20 119/66 (83) 100 98.1 05/16/18 08:00 Mechanical Ventilator 05/16/18 07:09 61 16 40 05/16/18 05:16 68 16 40 05/16/18 04:00 60 05/16/18 04:00 98.2 74 18 116/66 (83) 100 98.2 05/16/18 04:00 Mechanical Ventilator 05/16/18 04:00 40.0 05/16/18 03:10 73 20 40 05/16/18 01:20 89 21 40 05/16/18 00:00 99.0 83 21 157/76 (103) 98 99.0 05/16/18 00:00 Mechanical Ventilator 05/16/18 00:00 40.0 05/16/18 00:00 73 05/15/18 23:05 75 22 40 05/15/18 21:30 80 17 40 05/15/18 20:00 73 05/15/18 20:00 99.0 77 21 136/85 (102) 99 99.0 05/15/18 20:00 40.0 05/15/18 20:00 Mechanical Ventilator 05/15/18 18:55 78 20 40 05/15/18 16:42 73 22 40 05/15/18 16:00 98.2 86 18 132/69 (90) 99 98.2 05/15/18 16:00 69 05/15/18 16:00 40.0 05/15/18 16:00 Mechanical Ventilator 05/15/18 15:18 77 21 40 05/15/18 13:29 86 16 40 05/15/18 12:43 208.8 76 16 100 05/15/18 12:39 208.8 77 16 100 05/15/18 12:24 86 05/15/18 12:00 40.0 05/15/18 12:00 Mechanical Ventilator 05/15/18 12:00 98.1 86 20 117/76 (90) 98 98.1 Micro: Microbiology Date/Time Source Procedure Growth Status 05/13/18 21:40 Blood Blood Culture - Preliminary NO GROWTH AFTER 48 HOURS Resulted 05/13/18 19:45 Blood Blood Culture - Preliminary Staphylococcus Sp Coag Neg Resulted 05/13/18 21:00 Urine,Clean Catch Urine Culture - Final Providencia Stuartii Complete 05/14/18 00:20 Rectum - Final NO CARBAPENEM-RESISTANT ENTEROBACTERI... Complete 05/14/18 00:20 Rectum VRE Culture - Final Enterococcus Faecalis - Vre Complete Critical Care - Subjective ROS Limited/Unobtainable: No Interval Events: received one unit prbc yesterday and going to get any unit today. Condition: critical EKG Rhythm: Sinus Rhythm FI02: 40 Vent Support Breath Rate: 16 Vent Support Mode: AC Vent Tidal Volume: 600 Sputum Amount: Small PEEP: 5.0 PIP: 23 Fluids: d5 ns 75 cc Tube Feeding Amount: 30 I&O: Intake and Output 05/15/18 05/16/18 19:00 07:00 Intake Total 775 ml 1070 ml Output Total 350 ml 675 ml Balance 425 ml 395 ml Free Water 100 ml IV Total 635 ml 840 ml Tube Feeding 40 ml 230 ml Output Urine Total 350 ml 675 ml Labs: Laboratory Tests Test 05/16/18 04:00 White Blood Count 10.7 K/UL (4.8-10.8) Red Blood Count 2.81 M/UL (4.70-6.10) L Hemoglobin 7.7 G/DL (14.2-18.0) L Hematocrit 23.3 % (42.0-52.0) L Mean Corpuscular Volume 83 FL (80-99) Mean Corpuscular Hemoglobin 27.4 PG (27.0-31.0) Mean Corpuscular Hemoglobin Concent 33.1 G/DL (32.0-36.0) Red Cell Distribution Width 13.2 % (11.6-14.8) Platelet Count 199 K/UL (150-450) Mean Platelet Volume 8.3 FL (6.5-10.1) Neutrophils (%) (Auto) % (45.0-75.0) Lymphocytes (%) (Auto) % (20.0-45.0) Monocytes (%) (Auto) % (1.0-10.0) Eosinophils (%) (Auto) % (0.0-3.0) Basophils (%) (Auto) % (0.0-2.0) Differential Total Cells Counted 100 Neutrophils % (Manual) 72 % (45-75) Lymphocytes % (Manual) 18 % (20-45) L Monocytes % (Manual) 9 % (1-10) Eosinophils % (Manual) 1 % (0-3) Basophils % (Manual) 0 % (0-2) Band Neutrophils 0 % (0-8) Platelet Estimate Adequate Platelet Morphology Normal Hypochromasia 1+ Sodium Level 139 MMOL/L (136-145) Potassium Level 2.8 MMOL/L (3.5-5.1) L Chloride Level 108 MMOL/L (98-107) H Carbon Dioxide Level 20 MMOL/L (21-32) L Anion Gap 11 mmol/L (5-15) Blood Urea Nitrogen 18 mg/dL (7-18) Creatinine 1.0 MG/DL (0.55-1.30) Estimat Glomerular Filtration Rate > 60 mL/min (>60) Glucose Level 436 MG/DL (74-106) #H Calcium Level 8.0 MG/DL (8.5-10.1) L Phosphorus Level 2.4 MG/DL (2.5-4.9) L Magnesium Level 1.6 MG/DL (1.8-2.4) L Total Bilirubin 0.3 MG/DL (0.2-1.0) Aspartate Amino Transf (AST/SGOT) 12 U/L (15-37) L Alanine Aminotransferase (ALT/SGPT) 16 U/L (12-78) Alkaline Phosphatase 94 U/L (46-116) Total Protein 6.2 G/DL (6.4-8.2) L Albumin 2.3 G/DL (3.4-5.0) L Globulin 3.9 g/dL Albumin/Globulin Ratio 0.6 (1.0-2.7) L Huma Keating MD May 16, 2018 11:22
[2018-05-16] MEDS ORDERED: Potassium Chloride 40 MEQ in Sodium Chloride 500ML 550 ML IVPB ONE (11:30)
[2018-05-16 12:00] VITALS: BP 129/44
--- NOTE | 2018-05-16 12:34 | General Progress Note ---
Assessment/Plan Problem List: (1) Sepsis ICD Codes: A41.9 - Sepsis, unspecified organism SNOMED: 66513072 Qualifiers: Qualified Codes: A41.9 - Sepsis, unspecified organism (2) Tracheostomy dependence ICD Codes: Z93.0 - Tracheostomy status SNOMED: 920381902, 845874831 (3) Anemia ICD Codes: D64.9 - Anemia, unspecified SNOMED: 103036706 (4) Severe protein-calorie malnutrition ICD Codes: E43 - Unspecified severe protein-calorie malnutrition SNOMED: 834962462 (5) GI bleed ICD Codes: K92.2 - Gastrointestinal hemorrhage, unspecified SNOMED: 43160461 (6) Respiratory failure, pgrlf-ex-pwzbjdy ICD Codes: J96.20 - Respiratory failure, uglry-wu-rndsjus SNOMED: 41676540 (7) Diabetes ICD Codes: E11.9 - Type 2 diabetes mellitus without complications SNOMED: 35114807 (8) Gastritis ICD Codes: K29.70 - Gastritis SNOMED: 1371711 (9) HTN (hypertension) ICD Codes: I10 - HTN (hypertension) SNOMED: 05077965 Status: stable, progressing Assessment/Plan vent abx gi f/u cbc bmp am Subjective Constitutional: Reports: weakness Allergies: Coded Allergies: NO KNOWN DRUG ALLERGIES (Verified Allergy, Unknown, 09/11/16) All Systems: reviewed and negative except above Subjective trach vent altered Objective Last 24 Hour Vital Signs Date Time Temp Pulse Resp B/P (MAP) Pulse Ox O2 Delivery O2 Flow Rate FiO2 05/16/18 11:28 55 16 40 05/16/18 09:19 62 17 40 05/16/18 08:29 56 05/16/18 08:00 40.0 05/16/18 08:00 98.1 77 20 119/66 (83) 100 98.1 05/16/18 08:00 Mechanical Ventilator 05/16/18 07:09 61 16 40 05/16/18 05:16 68 16 40 05/16/18 04:00 60 05/16/18 04:00 98.2 74 18 116/66 (83) 100 98.2 05/16/18 04:00 Mechanical Ventilator 05/16/18 04:00 40.0 05/16/18 03:10 73 20 40 05/16/18 01:20 89 21 40 05/16/18 00:00 99.0 83 21 157/76 (103) 98 99.0 05/16/18 00:00 Mechanical Ventilator 05/16/18 00:00 40.0 05/16/18 00:00 73 05/15/18 23:05 75 22 40 05/15/18 21:30 80 17 40 05/15/18 20:00 73 05/15/18 20:00 99.0 77 21 136/85 (102) 99 99.0 05/15/18 20:00 40.0 05/15/18 20:00 Mechanical Ventilator 05/15/18 18:55 78 20 40 05/15/18 16:42 73 22 40 05/15/18 16:00 98.2 86 18 132/69 (90) 99 98.2 05/15/18 16:00 69 05/15/18 16:00 40.0 05/15/18 16:00 Mechanical Ventilator 05/15/18 15:18 77 21 40 05/15/18 13:29 86 16 40 05/15/18 12:43 208.8 76 16 100 05/15/18 12:39 208.8 77 16 100 Intake and Output 05/15/18 05/16/18 19:00 07:00 Intake Total 775 ml 1070 ml Output Total 350 ml 675 ml Balance 425 ml 395 ml Free Water 100 ml IV Total 635 ml 840 ml Tube Feeding 40 ml 230 ml Output Urine Total 350 ml 675 ml Laboratory Tests 05/16/18 04:00: White Blood Count 10.7, Red Blood Count 2.81L, Hemoglobin 7.7L, Hematocrit 23.3L , Mean Corpuscular Volume 83, Mean Corpuscular Hemoglobin 27.4, Mean Corpuscular Hemoglobin Concent 33.1, Red Cell Distribution Width 13.2, Platelet Count 199, Mean Platelet Volume 8.3, Neutrophils (%) (Auto) , Lymphocytes (%) ( Auto) , Monocytes (%) (Auto) , Eosinophils (%) (Auto) , Basophils (%) (Auto) , Differential Total Cells Counted 100, Neutrophils % (Manual) 72, Lymphocytes % ( Manual) 18L, Monocytes % (Manual) 9, Eosinophils % (Manual) 1, Basophils % ( Manual) 0, Band Neutrophils 0, Platelet Estimate Adequate, Platelet Morphology Normal, Hypochromasia 1+, Sodium Level 139, Potassium Level 2.8L, Chloride Level 108H, Carbon Dioxide Level 20L, Anion Gap 11, Blood Urea Nitrogen 18, Creatinine 1.0, Estimat Glomerular Filtration Rate > 60, Glucose Level 436#H, Calcium Level 8.0L, Phosphorus Level 2.4L, Magnesium Level 1.6L, Total Bilirubin 0.3, Aspartate Amino Transf (AST/SGOT) 12L, Alanine Aminotransferase ( ALT/SGPT) 16, Alkaline Phosphatase 94, Total Protein 6.2L, Albumin 2.3L, Globulin 3.9, Albumin/Globulin Ratio 0.6L Height (Feet): 5 Height (Inches): 5.00 Weight (Pounds): 125 General Appearance: lethargic EENT: normal ENT inspection Neck: normal alignment Cardiovascular: normal peripheral pulses, normal rate, regular rhythm Respiratory/Chest: chest wall non-tender, lungs clear, normal breath sounds Abdomen: normal bowel sounds, non tender, soft Extremities: normal inspection Edema: no edema noted Arm (L), no edema noted Arm (R), no edema noted Leg (L), no edema noted Leg (R), no edema noted Pedal (L), no edema noted Pedal (R), no edema noted Generalized Neurologic: motor weakness Skin: normal pigmentation, warm/dry Gato Viveros DO May 16, 2018 12:34
[2018-05-16] MEDS ORDERED: Sodium Phosphate 30 MM in NS 275 ML IV ONE (14:00)
[2018-05-16 15:53] VITALS: BP 122/73
--- NOTE | 2018-05-16 15:58 | Diagnostic Imaging Report ---
APPROVED REPORT CPT Code: 99384 Present Symptoms Shortness of breath Technically difficult study. 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 RIGHT LEG: Venous imaging reveals a patent deep venous system. There is no evidence of thrombus within the femoral, popliteal or tibial segments. The greater saphenous vein is also within normal limits. Doppler indicates normal spontaneous flow within these segments. LEFT LEG: Venous imaging reveals a patent deep venous system. There is no evidence of thrombus within the superficial femoral, or tibial segments. Doppler indicates normal spontaneous flow within these segments. The common femoral and popliteal veins were not well visualized, due to contractures.
[2018-05-16 20:00] VITALS: BP 118/75
[2018-05-16] MEDS: Dyna-Hex 2% Top Sol 2oz TOPIC SCH (20:26)
[2018-05-16] MEDS: cefTRIAXone 1 GM in D5W 55 ML IVPB SCH (20:27)
--- NOTE | 2018-05-16 21:56 | General Progress Note ---
Assessment/Plan Assessment/Plan encephalopathy due to [facility] Dementia -seroquel prn -the pt lacks capacity to make decisions Subjective Date patient seen: May 16, 2018 Neurologic/Psychiatric: Reports: anxiety, depressed, emotional problems Allergies: Coded Allergies: NO KNOWN DRUG ALLERGIES (Verified Allergy, Unknown, 09/11/16) Subjective the pt is unable to understand process nor appreciate the info given to him Objective Last 24 Hour Vital Signs Date Time Temp Pulse Resp B/P (MAP) Pulse Ox O2 Delivery O2 Flow Rate FiO2 05/16/18 18:55 64 16 40 05/16/18 17:14 63 16 40 05/16/18 16:45 69 05/16/18 16:00 40 05/16/18 16:00 Mechanical Ventilator 05/16/18 15:53 98.3 63 17 122/73 (89) 100 98.3 05/16/18 15:02 54 16 40 05/16/18 13:03 54 16 40 05/16/18 12:00 Mechanical Ventilator 05/16/18 12:00 98.1 71 24 129/44 (72) 100 98.1 05/16/18 12:00 59 05/16/18 12:00 40 05/16/18 11:28 55 16 40 05/16/18 09:19 62 17 40 05/16/18 08:29 56 05/16/18 08:00 40 05/16/18 08:00 98.1 77 20 119/66 (83) 100 98.1 05/16/18 08:00 Mechanical Ventilator 05/16/18 07:09 61 16 40 05/16/18 05:16 68 16 40 05/16/18 04:00 60 05/16/18 04:00 98.2 74 18 116/66 (83) 100 98.2 05/16/18 04:00 Mechanical Ventilator 05/16/18 04:00 40.0 05/16/18 03:10 73 20 40 05/16/18 01:20 89 21 40 05/16/18 00:00 99.0 83 21 157/76 (103) 98 99.0 05/16/18 00:00 Mechanical Ventilator 05/16/18 00:00 40.0 05/16/18 00:00 73 05/15/18 23:05 75 22 40 Intake and Output 05/15/18 05/16/18 19:00 07:00 Intake Total 775 ml 1185 ml Output Total 350 ml 675 ml Balance 425 ml 510 ml Free Water 100 ml IV Total 635 ml 915 ml Tube Feeding 40 ml 270 ml Output Urine Total 350 ml 675 ml Laboratory Tests 05/16/18 04:00: White Blood Count 10.7, Red Blood Count 2.81L, Hemoglobin 7.7L, Hematocrit 23.3L , Mean Corpuscular Volume 83, Mean Corpuscular Hemoglobin 27.4, Mean Corpuscular Hemoglobin Concent 33.1, Red Cell Distribution Width 13.2, Platelet Count 199, Mean Platelet Volume 8.3, Neutrophils (%) (Auto) , Lymphocytes (%) ( Auto) , Monocytes (%) (Auto) , Eosinophils (%) (Auto) , Basophils (%) (Auto) , Differential Total Cells Counted 100, Neutrophils % (Manual) 72, Lymphocytes % ( Manual) 18L, Monocytes % (Manual) 9, Eosinophils % (Manual) 1, Basophils % ( Manual) 0, Band Neutrophils 0, Platelet Estimate Adequate, Platelet Morphology Normal, Hypochromasia 1+, Sodium Level 139, Potassium Level 2.8L, Chloride Level 108H, Carbon Dioxide Level 20L, Anion Gap 11, Blood Urea Nitrogen 18, Creatinine 1.0, Estimat Glomerular Filtration Rate > 60, Glucose Level 436#H, Calcium Level 8.0L, Phosphorus Level 2.4L, Magnesium Level 1.6L, Total Bilirubin 0.3, Aspartate Amino Transf (AST/SGOT) 12L, Alanine Aminotransferase ( ALT/SGPT) 16, Alkaline Phosphatase 94, Total Protein 6.2L, Albumin 2.3L, Globulin 3.9, Albumin/Globulin Ratio 0.6L Height (Feet): 5 Height (Inches): 5.00 Weight (Pounds): 125 Toma Ramirez MD May 16, 2018 21:56
[2018-05-17] VITALS: BP 122/69
[2018-05-17] MEDS: D5NS 1,000 ML IV SCH ×2 (03:45→17:47)
[2018-05-17 04:00] VITALS: BP 129/68
[2018-05-17] MEDS: Pantoprazole Inj IVP SCH ×2 (05:00→17:48)
[2018-05-17 05:51] LABS: ANION GAP 13 mmol/L (5-15); BLOOD UREA NITROGEN 14 mg/dL (7-18); CALCIUM 7.9 MG/DL (8.5-10.1); CARBON DIOXIDE 19 MMOL/L (21-32); CHLORIDE 108 MMOL/L (98-107); POTASSIUM 3.1 MMOL/L (3.5-5.1); SODIUM 140 MMOL/L (136-145)
[2018-05-17 06:04] LABS: BASOPHILS % (AUTO) 0.5 % (0.0-2.0); EOSINOPHILS % (AUTO) 4.5 % (0.0-3.0); HEMATOCRIT 27.9 % (42.0-52.0); HEMOGLOBIN 9.2 G/DL (14.2-18.0); LYMPHOCYTES % (AUTO) 18.8 % (20.0-45.0); MEAN CORPUSCULAR VOLUME 84 FL (80-99); MONOCYTES % (AUTO) 11.7 % (1.0-10.0); NEUTROPHILS % (AUTO) 64.6 % (45.0-75.0); PLATELET COUNT 213 K/UL (150-450); RED BLOOD COUNT 3.34 M/UL (4.70-6.10); WHITE BLOOD COUNT 8.2 K/UL (4.8-10.8)
--- NOTE | 2018-05-17 08:03 | Infectious Diseases Prog Note ---
Assessment/Plan Assessment/Plan A: Sepsis PNA, vs UTI vs GI Blood Cx positive - Likely Contaminant GPC - Cx Pend Leukocytosis WBCs 40K on admit Improving Fever - Resolved UGIB DM Asthma GERD Hx CVA/TIA Dementia Hx Seizures P: D/C Vancomycin #4 Continue Ceftriaxone #3/6 - End date 05/20/18 9/3 SP Zosyn x1 Monitor CBC and Temps - Vent support We will continue to follow the patient with you. Subjective Allergies: Coded Allergies: NO KNOWN DRUG ALLERGIES (Verified Allergy, Unknown, 09/11/16) Subjective Patient trached Still on a vent 40% O2 Afebrile Objective Vital Signs Last 24 Hour Vital Signs Date Time Temp Pulse Resp B/P (MAP) Pulse Ox O2 Delivery O2 Flow Rate FiO2 05/17/18 06:58 59 16 40 05/17/18 05:25 84 21 40 05/17/18 04:00 63 05/17/18 04:00 98.1 72 16 129/68 (88) 100 98.1 05/17/18 04:00 Mechanical Ventilator 05/17/18 04:00 40 05/17/18 03:20 62 16 40 05/17/18 01:28 60 16 40 05/17/18 00:00 98.2 78 16 122/69 (86) 100 98.2 05/17/18 00:00 Mechanical Ventilator 05/17/18 00:00 40 05/17/18 00:00 76 05/16/18 23:07 72 20 40 05/16/18 21:25 62 16 40 05/16/18 20:00 98.0 71 18 118/75 (89) 100 98.0 05/16/18 20:00 Mechanical Ventilator 05/16/18 20:00 40 05/16/18 20:00 74 05/16/18 18:55 64 16 40 05/16/18 17:14 63 16 40 05/16/18 16:45 69 05/16/18 16:00 40 05/16/18 16:00 Mechanical Ventilator 05/16/18 15:53 98.3 63 17 122/73 (89) 100 98.3 05/16/18 15:02 54 16 40 05/16/18 13:03 54 16 40 05/16/18 12:00 Mechanical Ventilator 05/16/18 12:00 98.1 71 24 129/44 (72) 100 98.1 05/16/18 12:00 59 05/16/18 12:00 40 05/16/18 11:28 55 16 40 05/16/18 09:19 62 17 40 05/16/18 08:29 56 Height (Feet): 5 Height (Inches): 5.00 Weight (Pounds): 125 Objective General Appearance: NAD - nonverbal, On vent Head: NCAT, MMM, Tracheotomy, Respiratory: CTAB, no Wheezing Cardiovascular: regular rate, rhythm, no edema Gastrointestinal: Soft, NT, ND, + BS, Gtube No Erythema, or purulent drainage Microbiology Date/Time Source Procedure Growth Status 05/15/18 18:00 Femoral Central Line Catheter Tip Culture - Preliminary NO GROWTH Resulted Laboratory Tests Test 05/17/18 04:00 White Blood Count 8.2 K/UL (4.8-10.8) Red Blood Count 3.34 M/UL (4.70-6.10) L Hemoglobin 9.2 G/DL (14.2-18.0) L Hematocrit 27.9 % (42.0-52.0) L Mean Corpuscular Volume 84 FL (80-99) Mean Corpuscular Hemoglobin 27.6 PG (27.0-31.0) Mean Corpuscular Hemoglobin Concent 33.0 G/DL (32.0-36.0) Red Cell Distribution Width 13.0 % (11.6-14.8) Platelet Count 213 K/UL (150-450) Mean Platelet Volume 8.3 FL (6.5-10.1) Neutrophils (%) (Auto) 64.6 % (45.0-75.0) Lymphocytes (%) (Auto) 18.8 % (20.0-45.0) L Monocytes (%) (Auto) 11.7 % (1.0-10.0) H Eosinophils (%) (Auto) 4.5 % (0.0-3.0) H Basophils (%) (Auto) 0.5 % (0.0-2.0) Sodium Level 140 MMOL/L (136-145) Potassium Level 3.1 MMOL/L (3.5-5.1) L Chloride Level 108 MMOL/L (98-107) H Carbon Dioxide Level 19 MMOL/L (21-32) L Anion Gap 13 mmol/L (5-15) Blood Urea Nitrogen 14 mg/dL (7-18) Creatinine 1.0 MG/DL (0.55-1.30) Estimat Glomerular Filtration Rate > 60 mL/min (>60) Glucose Level 306 MG/DL (74-106) #H Calcium Level 7.9 MG/DL (8.5-10.1) L Current Medications Medications (Trade) Dose Ordered Sig/Wanda Route PRN Reason Start Time Stop Time Status Last Admin Dose Admin Acetaminophen (Tylenol) 650 mg Q4H PRN ORAL T>100.5 05/13/18 20:30 06/12/18 20:29 Albuterol/ Ipratropium (Albuterol/ Ipratropium) 3 ml Q4H PRN HHN Shortness of Breath 05/13/18 20:30 05/18/18 20:29 Ceftriaxone Sodium 1 gm/ Dextrose 55 ml @ 110 mls/hr Q24H IVPB 05/15/18 21:00 05/22/18 20:59 05/16/18 20:27 Chlorhexidine Gluconate (Jasmin-Hex 2%) 1 applic DAILY@2000 TOPIC 05/15/18 20:00 06/14/18 19:59 05/16/18 20:26 Dextrose (Dextrose 50%) 25 ml PRN IV Hypoglycemia 05/13/18 20:45 06/12/18 20:44 Dextrose (Dextrose 50%) 50 ml PRN IV hypoglycemia 05/13/18 20:45 06/12/18 20:44 Dextrose/Sodium Chloride 1,000 ml @ 75 mls/hr [id number] IV 05/14/18 10:00 06/13/18 09:59 05/17/18 03:45 Levothyroxine Sodium (Synthroid) 50 mcg DAILY GT 05/14/18 09:00 06/13/18 08:59 05/16/18 08:24 Lorazepam (Ativan 2mg/ml 1ml) 2 mg Q2H PRN IV AGITATION 05/14/18 11:30 05/21/18 11:29 Morphine Sulfate (Morphine Sulfate) 4 mg EVERY 4 HOURS PRN IVP Severe Pain (Pain Scale 7-10) 05/13/18 20:30 05/20/18 20:29 Ondansetron HCl (Zofran) 4 mg Q6H PRN IVP Nausea & Vomiting 05/13/18 20:30 06/12/18 20:29 Pantoprazole (Protonix) 40 mg Q12H IVP 05/14/18 18:00 06/13/18 17:59 05/17/18 05:00 Polyethylene Glycol (Miralax) 17 gm DAILYPRN PRN ORAL Constipation 05/13/18 20:30 06/12/18 20:29 Quetiapine Fumarate (SEROquel) 25 mg Q6H PRN ORAL For Anxiety 05/14/18 11:30 06/13/18 11:29 Sucralfate (Carafate) 1 gm FOUR TIMES A DAY GT 05/13/18 21:00 06/12/18 20:59 05/16/18 20:26 Vancomycin HCl (Vanco rx to dose) 1 ea DAILY PRN MISC . 05/13/18 21:00 06/12/18 20:59 Vancomycin HCl 500 mg/Dextrose 110 ml @ 110 mls/hr Q12HR IVPB 05/14/18 09:00 05/19/18 08:59 05/16/18 20:27 John Fiore MD May 17, 2018 08:03
[2018-05-17] MEDS: Sucralfate 1gm tab GT SCH ×4 (08:17→21:12)
[2018-05-17] MEDS: Vancomycin 500mg/D5W 110ml IVPB SCH ×2 (08:20)
[2018-05-17 08:34] VITALS: BP 147/107
[2018-05-17] MEDS: NovoLOG Insulin Flexpen SUBQ SCH ×3 (11:30→21:00)
[2018-05-17 12:00] VITALS: BP 131/56
--- NOTE | 2018-05-17 12:27 | GI Progress Note ---
Assessment/Plan Problems: (1) Anemia ICD Codes: D64.9 - Anemia, unspecified SNOMED: 629248604 (2) Severe protein-calorie malnutrition ICD Codes: E43 - Unspecified severe protein-calorie malnutrition SNOMED: 558859765 (3) GI bleed ICD Codes: K92.2 - Gastrointestinal hemorrhage, unspecified SNOMED: 32287347 (4) Feeding by G-tube ICD Codes: Z93.1 - Gastrostomy status SNOMED: 736487786, 558282696 (5) Respiratory failure, itqht-as-suerwvr ICD Codes: J96.20 - Respiratory failure, nazev-oo-loylbbq SNOMED: 58403390 (6) Anemia ICD Codes: D64.9 - Anemia, unspecified SNOMED: 019267129 (7) Edema ICD Codes: R60.9 - Edema, unspecified SNOMED: 195671094, 381396620 (8) Upper GI bleed ICD Codes: K92.2 - Upper gastrointestinal hemorrhage SNOMED: 64421072 (9) Malnutrition ICD Codes: E46 - Unspecified protein-calorie malnutrition SNOMED: 89167480 Status: stable Status Narrative Discussed with Dr. Wilson. Assessment/Plan s/p EGD, see full report. 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 No dilation performed. - esophagitis ppi BID + carafate prn transfusions monitor H&H, prn transfusions bowel regime fu labs The patient was seen and examined at bedside and all new and available data was reviewed in the patients chart. I agree with the above findings, impression and plan. (Patient seen earlier today. Signature stamp does not reflect patient encounter time.). - Vitaliy Wilson MD Subjective Subjective limited Objective Last 24 Hour Vital Signs Date Time Temp Pulse Resp B/P (MAP) Pulse Ox O2 Delivery O2 Flow Rate FiO2 05/17/18 10:36 74 16 40 05/17/18 09:45 60 16 40 05/17/18 08:34 Mechanical Ventilator 05/17/18 08:34 97.9 80 18 147/107 (120) 100 97.9 05/17/18 08:00 40 05/17/18 08:00 69 05/17/18 06:58 59 16 40 05/17/18 05:25 84 21 40 05/17/18 04:00 63 05/17/18 04:00 98.1 72 16 129/68 (88) 100 98.1 05/17/18 04:00 Mechanical Ventilator 05/17/18 04:00 40 05/17/18 03:20 62 16 40 05/17/18 01:28 60 16 40 05/17/18 00:00 98.2 78 16 122/69 (86) 100 98.2 05/17/18 00:00 Mechanical Ventilator 05/17/18 00:00 40 05/17/18 00:00 76 05/16/18 23:07 72 20 40 05/16/18 21:25 62 16 40 05/16/18 20:00 98.0 71 18 118/75 (89) 100 98.0 05/16/18 20:00 Mechanical Ventilator 05/16/18 20:00 40 05/16/18 20:00 74 05/16/18 18:55 64 16 40 05/16/18 17:14 63 16 40 05/16/18 16:45 69 05/16/18 16:00 40 05/16/18 16:00 Mechanical Ventilator 05/16/18 15:53 98.3 63 17 122/73 (89) 100 98.3 05/16/18 15:02 54 16 40 05/16/18 13:03 54 16 40 Intake and Output 05/16/18 05/17/18 19:00 07:00 Intake Total 2628.75 ml 1743.75 ml Output Total 400 ml 775 ml Balance 2228.75 ml 968.75 ml Free Water 200 ml 100 ml IV Total 1818.75 ml 1063.75 ml Tube Feeding 360 ml 580 ml Blood Product 250 ml Output Urine Total 400 ml 775 ml # Bowel Movements 2 3 Laboratory Tests Test 05/17/18 04:00 White Blood Count 8.2 K/UL (4.8-10.8) Red Blood Count 3.34 M/UL (4.70-6.10) L Hemoglobin 9.2 G/DL (14.2-18.0) L Hematocrit 27.9 % (42.0-52.0) L Mean Corpuscular Volume 84 FL (80-99) Mean Corpuscular Hemoglobin 27.6 PG (27.0-31.0) Mean Corpuscular Hemoglobin Concent 33.0 G/DL (32.0-36.0) Red Cell Distribution Width 13.0 % (11.6-14.8) Platelet Count 213 K/UL (150-450) Mean Platelet Volume 8.3 FL (6.5-10.1) Neutrophils (%) (Auto) 64.6 % (45.0-75.0) Lymphocytes (%) (Auto) 18.8 % (20.0-45.0) L Monocytes (%) (Auto) 11.7 % (1.0-10.0) H Eosinophils (%) (Auto) 4.5 % (0.0-3.0) H Basophils (%) (Auto) 0.5 % (0.0-2.0) Sodium Level 140 MMOL/L (136-145) Potassium Level 3.1 MMOL/L (3.5-5.1) L Chloride Level 108 MMOL/L (98-107) H Carbon Dioxide Level 19 MMOL/L (21-32) L Anion Gap 13 mmol/L (5-15) Blood Urea Nitrogen 14 mg/dL (7-18) Creatinine 1.0 MG/DL (0.55-1.30) Estimat Glomerular Filtration Rate > 60 mL/min (>60) Glucose Level 306 MG/DL (74-106) #H Calcium Level 7.9 MG/DL (8.5-10.1) L Height (Feet): 5 Height (Inches): 5.00 Weight (Pounds): 125 General Appearance: no apparent distress Cardiovascular: normal rate Respiratory/Chest: normal breath sounds, no respiratory distress Abdominal Exam: normal bowel sounds, non tender, soft, GT site - c/d/i Extremities: non-tender Emanuel Quesada NP May 17, 2018 12:27
--- NOTE | 2018-05-17 12:34 | General Progress Note ---
Assessment/Plan Assessment/Plan encephalopathy due to [facility] Dementia -seroquel prn -the pt lacks capacity to make decisions Subjective Date patient seen: May 17, 2018 Neurologic/Psychiatric: Reports: anxiety, depressed, emotional problems Allergies: Coded Allergies: NO KNOWN DRUG ALLERGIES (Verified Allergy, Unknown, 09/11/16) Subjective the pt is the same Objective Last 24 Hour Vital Signs Date Time Temp Pulse Resp B/P (MAP) Pulse Ox O2 Delivery O2 Flow Rate FiO2 05/17/18 12:00 40 05/17/18 12:00 98.0 60 20 131/56 (81) 100 98.0 05/17/18 12:00 Mechanical Ventilator 05/17/18 10:36 74 16 40 05/17/18 09:45 60 16 40 05/17/18 08:34 Mechanical Ventilator 05/17/18 08:34 97.9 80 18 147/107 (120) 100 97.9 05/17/18 08:00 40 05/17/18 08:00 69 05/17/18 06:58 59 16 40 05/17/18 05:25 84 21 40 05/17/18 04:00 63 05/17/18 04:00 98.1 72 16 129/68 (88) 100 98.1 05/17/18 04:00 Mechanical Ventilator 05/17/18 04:00 40 05/17/18 03:20 62 16 40 05/17/18 01:28 60 16 40 05/17/18 00:00 98.2 78 16 122/69 (86) 100 98.2 05/17/18 00:00 Mechanical Ventilator 05/17/18 00:00 40 05/17/18 00:00 76 05/16/18 23:07 72 20 40 05/16/18 21:25 62 16 40 05/16/18 20:00 98.0 71 18 118/75 (89) 100 98.0 05/16/18 20:00 Mechanical Ventilator 05/16/18 20:00 40 05/16/18 20:00 74 05/16/18 18:55 64 16 40 05/16/18 17:14 63 16 40 05/16/18 16:45 69 05/16/18 16:00 40 05/16/18 16:00 Mechanical Ventilator 05/16/18 15:53 98.3 63 17 122/73 (89) 100 98.3 05/16/18 15:02 54 16 40 05/16/18 13:03 54 16 40 Intake and Output 05/16/18 05/17/18 19:00 07:00 Intake Total 2628.75 ml 1743.75 ml Output Total 400 ml 775 ml Balance 2228.75 ml 968.75 ml Free Water 200 ml 100 ml IV Total 1818.75 ml 1063.75 ml Tube Feeding 360 ml 580 ml Blood Product 250 ml Output Urine Total 400 ml 775 ml # Bowel Movements 2 3 Laboratory Tests 05/17/18 04:00: White Blood Count 8.2, Red Blood Count 3.34L, Hemoglobin 9.2L, Hematocrit 27.9L , Mean Corpuscular Volume 84, Mean Corpuscular Hemoglobin 27.6, Mean Corpuscular Hemoglobin Concent 33.0, Red Cell Distribution Width 13.0, Platelet Count 213, Mean Platelet Volume 8.3, Neutrophils (%) (Auto) 64.6, Lymphocytes (% ) (Auto) 18.8L, Monocytes (%) (Auto) 11.7H, Eosinophils (%) (Auto) 4.5H, Basophils (%) (Auto) 0.5, Sodium Level 140, Potassium Level 3.1L, Chloride Level 108H, Carbon Dioxide Level 19L, Anion Gap 13, Blood Urea Nitrogen 14, Creatinine 1.0, Estimat Glomerular Filtration Rate > 60, Glucose Level 306#H, Calcium Level 7.9L Height (Feet): 5 Height (Inches): 5.00 Weight (Pounds): 125 Toma Ramirez MD May 17, 2018 12:34
--- NOTE | 2018-05-17 12:51 | Pulmonolgy Critical Care Note ---
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 health case managergarden center manager - Objective Last 24 Hour Vital Signs Date Time Temp Pulse Resp B/P (MAP) Pulse Ox O2 Delivery O2 Flow Rate FiO2 05/17/18 12:00 40 05/17/18 12:00 98.0 60 20 131/56 (81) 100 98.0 05/17/18 12:00 Mechanical Ventilator 05/17/18 10:36 74 16 40 05/17/18 09:45 60 16 40 05/17/18 08:34 Mechanical Ventilator 05/17/18 08:34 97.9 80 18 147/107 (120) 100 97.9 05/17/18 08:00 40 05/17/18 08:00 69 05/17/18 06:58 59 16 40 05/17/18 05:25 84 21 40 05/17/18 04:00 63 05/17/18 04:00 98.1 72 16 129/68 (88) 100 98.1 05/17/18 04:00 Mechanical Ventilator 05/17/18 04:00 40 05/17/18 03:20 62 16 40 05/17/18 01:28 60 16 40 05/17/18 00:00 98.2 78 16 122/69 (86) 100 98.2 05/17/18 00:00 Mechanical Ventilator 05/17/18 00:00 40 05/17/18 00:00 76 05/16/18 23:07 72 20 40 05/16/18 21:25 62 16 40 05/16/18 20:00 98.0 71 18 118/75 (89) 100 98.0 05/16/18 20:00 Mechanical Ventilator 05/16/18 20:00 40 9/6/18 20:00 74 05/16/18 18:55 64 16 40 05/16/18 17:14 63 16 40 05/16/18 16:45 69 05/16/18 16:00 40 05/16/18 16:00 Mechanical Ventilator 05/16/18 15:53 98.3 63 17 122/73 (89) 100 98.3 05/16/18 15:02 54 16 40 05/16/18 13:03 54 16 40 Status: awake Condition: critical Neck: full ROM Heart: HR/BP stable, HR/BP unstable Abdomen: soft, active bowel sounds Extremities: no C/C/E, edema Micro: Microbiology Date/Time Source Procedure Growth Status 05/15/18 18:00 Femoral Central Line Catheter Tip Culture - Preliminary NO GROWTH AFTER 24 HOURS Resulted Accucheck: 102 Critical Care - Subjective ROS Limited/Unobtainable: Yes Condition: critical EKG Rhythm: Sinus Rhythm FI02: 40 Vent Support Breath Rate: 16 Vent Support Mode: AC Vent Tidal Volume: 600 Sputum Amount: Moderate PEEP: 5.0 PIP: 23 Tube Feeding Amount: 50 I&O: Intake and Output 05/16/18 05/17/18 19:00 07:00 Intake Total 2628.75 ml 1743.75 ml Output Total 400 ml 775 ml Balance 2228.75 ml 968.75 ml Free Water 200 ml 100 ml IV Total 1818.75 ml 1063.75 ml Tube Feeding 360 ml 580 ml Blood Product 250 ml Output Urine Total 400 ml 775 ml # Bowel Movements 2 3 Labs: Laboratory Tests Test 05/17/18 04:00 White Blood Count 8.2 K/UL (4.8-10.8) Red Blood Count 3.34 M/UL (4.70-6.10) L Hemoglobin 9.2 G/DL (14.2-18.0) L Hematocrit 27.9 % (42.0-52.0) L Mean Corpuscular Volume 84 FL (80-99) Mean Corpuscular Hemoglobin 27.6 PG (27.0-31.0) Mean Corpuscular Hemoglobin Concent 33.0 G/DL (32.0-36.0) Red Cell Distribution Width 13.0 % (11.6-14.8) Platelet Count 213 K/UL (150-450) Mean Platelet Volume 8.3 FL (6.5-10.1) Neutrophils (%) (Auto) 64.6 % (45.0-75.0) Lymphocytes (%) (Auto) 18.8 % (20.0-45.0) L Monocytes (%) (Auto) 11.7 % (1.0-10.0) H Eosinophils (%) (Auto) 4.5 % (0.0-3.0) H Basophils (%) (Auto) 0.5 % (0.0-2.0) Sodium Level 140 MMOL/L (136-145) Potassium Level 3.1 MMOL/L (3.5-5.1) L Chloride Level 108 MMOL/L (98-107) H Carbon Dioxide Level 19 MMOL/L (21-32) L Anion Gap 13 mmol/L (5-15) Blood Urea Nitrogen 14 mg/dL (7-18) Creatinine 1.0 MG/DL (0.55-1.30) Estimat Glomerular Filtration Rate > 60 mL/min (>60) Glucose Level 306 MG/DL (74-106) #H Calcium Level 7.9 MG/DL (8.5-10.1) L Huma Keating MD May 17, 2018 12:51
--- NOTE | 2018-05-17 13:19 | General Progress Note ---
Assessment/Plan Problem List: (1) Respiratory failure, owrpd-at-bovpulh ICD Codes: J96.20 - Respiratory failure, ulggl-tl-gpiszmg SNOMED: 66877010 (2) Feeding by G-tube ICD Codes: Z93.1 - Gastrostomy status SNOMED: 489964492, 814575866 (3) GI bleed ICD Codes: K92.2 - Gastrointestinal hemorrhage, unspecified SNOMED: 02998420 (4) Hyperglycemia ICD Codes: R73.9 - Hyperglycemia, unspecified SNOMED: 12995662 (5) Hypothyroidism ICD Codes: E03.9 - Hypothyroidism, unspecified SNOMED: 36924792 Assessment/Plan add Levemir 6 units bid continue NISS Subjective ROS Limited/Unobtainable: Yes Allergies: Coded Allergies: NO KNOWN DRUG ALLERGIES (Verified Allergy, Unknown, 09/11/16) Subjective events noted Objective Last 24 Hour Vital Signs Date Time Temp Pulse Resp B/P (MAP) Pulse Ox O2 Delivery O2 Flow Rate FiO2 05/17/18 13:15 69 16 40 05/17/18 12:00 40 05/17/18 12:00 64 05/17/18 12:00 98.0 60 20 131/56 (81) 100 98.0 05/17/18 12:00 Mechanical Ventilator 05/17/18 10:36 74 16 40 05/17/18 09:45 60 16 40 05/17/18 08:34 Mechanical Ventilator 05/17/18 08:34 97.9 80 18 147/107 (120) 100 97.9 05/17/18 08:00 40 05/17/18 08:00 69 05/17/18 06:58 59 16 40 05/17/18 05:25 84 21 40 05/17/18 04:00 63 05/17/18 04:00 98.1 72 16 129/68 (88) 100 98.1 05/17/18 04:00 Mechanical Ventilator 05/17/18 04:00 40 05/17/18 03:20 62 16 40 05/17/18 01:28 60 16 40 05/17/18 00:00 98.2 78 16 122/69 (86) 100 98.2 05/17/18 00:00 Mechanical Ventilator 05/17/18 00:00 40 05/17/18 00:00 76 05/16/18 23:07 72 20 40 05/16/18 21:25 62 16 40 05/16/18 20:00 98.0 71 18 118/75 (89) 100 98.0 05/16/18 20:00 Mechanical Ventilator 05/16/18 20:00 40 05/16/18 20:00 74 05/16/18 18:55 64 16 40 05/16/18 17:14 63 16 40 05/16/18 16:45 69 05/16/18 16:00 40 05/16/18 16:00 Mechanical Ventilator 05/16/18 15:53 98.3 63 17 122/73 (89) 100 98.3 05/16/18 15:02 54 16 40 Intake and Output 05/16/18 05/17/18 19:00 07:00 Intake Total 2628.75 ml 1813.75 ml Output Total 400 ml 775 ml Balance 2228.75 ml 1038.75 ml Free Water 200 ml 120 ml IV Total 1818.75 ml 1063.75 ml Tube Feeding 360 ml 630 ml Blood Product 250 ml Output Urine Total 400 ml 775 ml # Bowel Movements 2 3 Laboratory Tests 05/17/18 04:00: White Blood Count 8.2, Red Blood Count 3.34L, Hemoglobin 9.2L, Hematocrit 27.9L , Mean Corpuscular Volume 84, Mean Corpuscular Hemoglobin 27.6, Mean Corpuscular Hemoglobin Concent 33.0, Red Cell Distribution Width 13.0, Platelet Count 213, Mean Platelet Volume 8.3, Neutrophils (%) (Auto) 64.6, Lymphocytes (% ) (Auto) 18.8L, Monocytes (%) (Auto) 11.7H, Eosinophils (%) (Auto) 4.5H, Basophils (%) (Auto) 0.5, Sodium Level 140, Potassium Level 3.1L, Chloride Level 108H, Carbon Dioxide Level 19L, Anion Gap 13, Blood Urea Nitrogen 14, Creatinine 1.0, Estimat Glomerular Filtration Rate > 60, Glucose Level 306#H, Calcium Level 7.9L Height (Feet): 5 Height (Inches): 5.00 Weight (Pounds): 125 General Appearance: other - on vent EENT: other - trach Neck: normal alignment Cardiovascular: normal rate Respiratory/Chest: decreased breath sounds Objective Current Medications Medications (Trade) Dose Ordered Sig/Wanda Route PRN Reason Start Time Stop Time Status Last Admin Dose Admin Acetaminophen (Tylenol) 650 mg Q4H PRN ORAL T>100.5 05/13/18 20:30 06/12/18 20:29 Albuterol/ Ipratropium (Albuterol/ Ipratropium) 3 ml Q4H PRN HHN Shortness of Breath 05/13/18 20:30 05/18/18 20:29 Ceftriaxone Sodium 1 gm/ Dextrose 55 ml @ 110 mls/hr Q24H IVPB 05/15/18 21:00 05/22/18 20:59 05/16/18 20:27 Chlorhexidine Gluconate (Jasmin-Hex 2%) 1 applic DAILY@2000 TOPIC 05/15/18 20:00 06/14/18 19:59 05/16/18 20:26 Dextrose (Dextrose 50%) 25 ml STAT PRN IV Hypoglycemia 05/17/18 10:45 06/16/18 10:44 Dextrose (Dextrose 50%) 50 ml STAT PRN IV Hypoglycemia 05/17/18 10:45 06/16/18 10:44 Dextrose/Sodium Chloride 1,000 ml @ 75 mls/hr [id number] IV 05/14/18 10:00 06/13/18 09:59 05/17/18 03:45 Insulin Aspart (NovoLOG) BEFORE MEALS AND HS SUBQ 05/17/18 11:30 06/16/18 11:29 Levothyroxine Sodium (Synthroid) 50 mcg DAILY GT 05/14/18 09:00 06/13/18 08:59 05/17/18 09:18 Lorazepam (Ativan 2mg/ml 1ml) 2 mg Q2H PRN IV AGITATION 05/14/18 11:30 05/21/18 11:29 Morphine Sulfate (Morphine Sulfate) 4 mg EVERY 4 HOURS PRN IVP Severe Pain (Pain Scale 7-10) 05/13/18 20:30 05/20/18 20:29 Ondansetron HCl (Zofran) 4 mg Q6H PRN IVP Nausea & Vomiting 05/13/18 20:30 06/12/18 20:29 Pantoprazole (Protonix) 40 mg Q12H IVP 05/14/18 18:00 06/13/18 17:59 05/17/18 05:00 Polyethylene Glycol (Miralax) 17 gm DAILYPRN PRN ORAL Constipation 05/13/18 20:30 06/12/18 20:29 Potassium Chloride 40 meq/ Sodium Chloride 570 ml @ 142.5 mls/ hr ONCE ONCE IVPB 05/17/18 14:00 05/17/18 17:59 Quetiapine Fumarate (SEROquel) 25 mg Q6H PRN ORAL For Anxiety 05/14/18 11:30 06/13/18 11:29 Sucralfate (Carafate) 1 gm FOUR TIMES A DAY GT 05/13/18 21:00 06/12/18 20:59 05/17/18 08:17 Vancomycin HCl (Vanco rx to dose) 1 ea DAILY PRN MISC . 05/13/18 21:00 06/12/18 20:59 Vancomycin HCl 500 mg/Dextrose 110 ml @ 110 mls/hr Q12HR IVPB 05/14/18 09:00 05/19/18 08:59 05/17/18 08:20 Item Value Date Time Bedside Blood Glucose 102 mg/dl 05/17/18 1130 Glucose Level 306 MG/DL H # 05/17/18 0400 Albert Christopher MD May 17, 2018 13:19
[2018-05-17] MEDS ORDERED: Potassium Chloride 40 MEQ in Sodium Chloride 500ML 550 ML IVPB ONE (14:00)
--- NOTE | 2018-05-17 14:41 | General Progress Note ---
Assessment/Plan Problem List: (1) Sepsis ICD Codes: A41.9 - Sepsis, unspecified organism SNOMED: 61213338 Qualifiers: Qualified Codes: A41.9 - Sepsis, unspecified organism (2) Tracheostomy dependence ICD Codes: Z93.0 - Tracheostomy status SNOMED: 729513615, 310386255 (3) Anemia ICD Codes: D64.9 - Anemia, unspecified SNOMED: 607929385 (4) Severe protein-calorie malnutrition ICD Codes: E43 - Unspecified severe protein-calorie malnutrition SNOMED: 050973637 (5) GI bleed ICD Codes: K92.2 - Gastrointestinal hemorrhage, unspecified SNOMED: 32913843 (6) Respiratory failure, yqqxp-ov-qkxttqm ICD Codes: J96.20 - Respiratory failure, lyxni-ye-gbtocmi SNOMED: 23936550 (7) Diabetes ICD Codes: E11.9 - Type 2 diabetes mellitus without complications SNOMED: 52381415 (8) Gastritis ICD Codes: K29.70 - Gastritis SNOMED: 6928863 (9) HTN (hypertension) ICD Codes: I10 - HTN (hypertension) SNOMED: 07107853 Status: unchanged Assessment/Plan vent abx gi f/u cbc bmp am dc plan Subjective Constitutional: Reports: weakness Allergies: Coded Allergies: NO KNOWN DRUG ALLERGIES (Verified Allergy, Unknown, 09/11/16) All Systems: reviewed and negative except above Subjective trach vent altered Objective Last 24 Hour Vital Signs Date Time Temp Pulse Resp B/P (MAP) Pulse Ox O2 Delivery O2 Flow Rate FiO2 05/17/18 13:15 69 16 40 05/17/18 12:00 40 05/17/18 12:00 64 05/17/18 12:00 98.0 60 20 131/56 (81) 100 98.0 05/17/18 12:00 Mechanical Ventilator 05/17/18 10:36 74 16 40 05/17/18 09:45 60 16 40 05/17/18 08:34 Mechanical Ventilator 05/17/18 08:34 97.9 80 18 147/107 (120) 100 97.9 05/17/18 08:00 40 05/17/18 08:00 69 05/17/18 06:58 59 16 40 05/17/18 05:25 84 21 40 05/17/18 04:00 63 05/17/18 04:00 98.1 72 16 129/68 (88) 100 98.1 05/17/18 04:00 Mechanical Ventilator 05/17/18 04:00 40 05/17/18 03:20 62 16 40 05/17/18 01:28 60 16 40 05/17/18 00:00 98.2 78 16 122/69 (86) 100 98.2 05/17/18 00:00 Mechanical Ventilator 05/17/18 00:00 40 05/17/18 00:00 76 05/16/18 23:07 72 20 40 05/16/18 21:25 62 16 40 05/16/18 20:00 98.0 71 18 118/75 (89) 100 98.0 05/16/18 20:00 Mechanical Ventilator 05/16/18 20:00 40 05/16/18 20:00 74 05/16/18 18:55 64 16 40 05/16/18 17:14 63 16 40 05/16/18 16:45 69 05/16/18 16:00 40 05/16/18 16:00 Mechanical Ventilator 05/16/18 15:53 98.3 63 17 122/73 (89) 100 98.3 05/16/18 15:02 54 16 40 Intake and Output 05/16/18 05/17/18 19:00 07:00 Intake Total 2628.75 ml 1813.75 ml Output Total 400 ml 775 ml Balance 2228.75 ml 1038.75 ml Free Water 200 ml 120 ml IV Total 1818.75 ml 1063.75 ml Tube Feeding 360 ml 630 ml Blood Product 250 ml Output Urine Total 400 ml 775 ml # Bowel Movements 2 3 Laboratory Tests 05/17/18 04:00: White Blood Count 8.2, Red Blood Count 3.34L, Hemoglobin 9.2L, Hematocrit 27.9L , Mean Corpuscular Volume 84, Mean Corpuscular Hemoglobin 27.6, Mean Corpuscular Hemoglobin Concent 33.0, Red Cell Distribution Width 13.0, Platelet Count 213, Mean Platelet Volume 8.3, Neutrophils (%) (Auto) 64.6, Lymphocytes (% ) (Auto) 18.8L, Monocytes (%) (Auto) 11.7H, Eosinophils (%) (Auto) 4.5H, Basophils (%) (Auto) 0.5, Sodium Level 140, Potassium Level 3.1L, Chloride Level 108H, Carbon Dioxide Level 19L, Anion Gap 13, Blood Urea Nitrogen 14, Creatinine 1.0, Estimat Glomerular Filtration Rate > 60, Glucose Level 306#H, Calcium Level 7.9L Height (Feet): 5 Height (Inches): 5.00 Weight (Pounds): 125 General Appearance: lethargic EENT: normal ENT inspection Neck: normal alignment Cardiovascular: normal peripheral pulses, normal rate, regular rhythm Respiratory/Chest: chest wall non-tender, lungs clear, normal breath sounds Abdomen: normal bowel sounds, non tender, soft Extremities: normal inspection Edema: no edema noted Arm (L), no edema noted Arm (R), no edema noted Leg (L), no edema noted Leg (R), no edema noted Pedal (L), no edema noted Pedal (R), no edema noted Generalized Neurologic: motor weakness Skin: normal pigmentation, warm/dry Gato Viveros DO May 17, 2018 14:41
[2018-05-17 16:00] VITALS: BP 142/73
[2018-05-17] MEDS: Levemir Flexpen SUBQ SCH (17:56)
[2018-05-17 20:00] VITALS: BP 132/70
[2018-05-17] MEDS: Dyna-Hex 2% Top Sol 2oz TOPIC SCH (20:14)
[2018-05-17] MEDS: cefTRIAXone 1 GM in D5W 55 ML IVPB SCH (21:13)
[2018-05-18] VITALS: BP 155/71
[2018-05-18 04:00] VITALS: BP 120/62
[2018-05-18 05:16] LABS: BASOPHILS % (AUTO) 0.4 % (0.0-2.0); EOSINOPHILS % (AUTO) 4.3 % (0.0-3.0); HEMATOCRIT 29.3 % (42.0-52.0); LYMPHOCYTES % (AUTO) 15.9 % (20.0-45.0); MEAN CORPUSCULAR VOLUME 83 FL (80-99); MONOCYTES % (AUTO) 10.7 % (1.0-10.0); NEUTROPHILS % (AUTO) 68.7 % (45.0-75.0); PLATELET COUNT 237 K/UL (150-450); RED BLOOD COUNT 3.53 M/UL (4.70-6.10); RED CELL DISTRIBUTION WIDTH 13.1 % (11.6-14.8); WHITE BLOOD COUNT 10.7 K/UL (4.8-10.8)
[2018-05-18 05:27] LABS: ALANINE AMINOTRANSFERASE 18 U/L (12-78); ALBUMIN 2.4 G/DL (3.4-5.0); ALBUMIN/GLOBULIN RATIO 0.6 (1.0-2.7); ALKALINE PHOSPHATASE 114 U/L (46-116); ANION GAP 8 mmol/L (5-15); ASPARTATE AMINO TRANSFERASE 12 U/L (15-37); BILIRUBIN,TOTAL 0.2 MG/DL (0.2-1.0); BLOOD UREA NITROGEN 14 mg/dL (7-18); CALCIUM 8.7 MG/DL (8.5-10.1); CARBON DIOXIDE 23 MMOL/L (21-32); CHLORIDE 108 MMOL/L (98-107); POTASSIUM 4.2 MMOL/L (3.5-5.1); SODIUM 139 MMOL/L (136-145)
[2018-05-18] MEDS: Pantoprazole Inj IVP SCH ×2 (05:44→17:26)
[2018-05-18] MEDS: NovoLOG Insulin Flexpen SUBQ SCH ×4 (05:57→20:39)
[2018-05-18] MEDS: D5NS 1,000 ML IV SCH ×2 (06:33→20:32)
[2018-05-18 08:00] VITALS: BP 141/81
--- NOTE | 2018-05-18 08:00 | Pulmonology Progress Note ---
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 PLAN OF CARE LUIS vent support, [facility] care pulmonary toilet baseline ABG chest x-ray with evidence of atelectasis , but no evidence of pneumonia suction as needed abx, ID follows blood cx + SCON, likely contaminant as per ID, urine cx + Providencia fever and leukocytosis resolved central line discontinued , preliminary cath tip with no evidence of infection PICC line placed ID follows GI closely follows s/p upper endoscopy with finding of severe stricture at GE junction no dilatation performed tube feeding started via G-tube feeding with strict aspiration / reflux precautions and monitoring for tolerance PPI twice a day and Carafate bowel regimen instituted HH monitor with goal to keep Hgb> 7 s/p PRBC transfusion anemia w/up c/w anemia of chronic disease venous duplex BLE negative psychiatry seen and evaluated , patient lacks capacity to make an informed decision 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 implemented in plan of care supportive care pain management addressed dc plan after GI clearance with abx per ID recommendations case discussed and evaluated by supervising physician Subjective Allergies: Coded Allergies: NO KNOWN DRUG ALLERGIES (Verified Allergy, Unknown, 09/11/16) Subjective no leukocytosis, afebrile, no signs of resp distress on current settings HH stable Objective Last 24 Hour Vital Signs Date Time Temp Pulse Resp B/P (MAP) Pulse Ox O2 Delivery O2 Flow Rate FiO2 05/18/18 06:44 65 16 40 05/18/18 05:25 68 18 40 05/18/18 04:00 98.6 67 16 120/62 (81) 99 98.6 05/18/18 04:00 Mechanical Ventilator 05/18/18 04:00 40 05/18/18 03:35 70 05/18/18 03:07 69 18 40 05/18/18 00:54 75 19 40 05/18/18 00:06 40 05/18/18 00:03 Mechanical Ventilator 05/18/18 00:00 98.4 71 18 155/71 (99) 100 98.4 05/18/18 00:00 85 05/17/18 22:55 75 19 40 05/17/18 20:46 74 19 40 05/17/18 20:00 98.4 76 16 132/70 (90) 100 98.4 05/17/18 20:00 40 05/17/18 20:00 Mechanical Ventilator 05/17/18 19:36 71 05/17/18 18:55 80 19 40 05/17/18 17:20 77 05/17/18 16:51 82 23 40 05/17/18 16:00 40 05/17/18 16:00 98.0 80 18 142/73 (96) 100 98.0 05/17/18 16:00 Mechanical Ventilator 05/17/18 15:22 96 22 40 05/17/18 13:15 69 16 40 05/17/18 12:00 40 05/17/18 12:00 64 05/17/18 12:00 98.0 60 20 131/56 (81) 100 98.0 05/17/18 12:00 Mechanical Ventilator 05/17/18 10:36 74 16 40 05/17/18 09:45 60 16 40 05/17/18 08:34 Mechanical Ventilator 05/17/18 08:34 97.9 80 18 147/107 (120) 100 97.9 05/17/18 08:00 40 05/17/18 08:00 69 Intake and Output 05/17/18 05/18/18 19:00 07:00 Intake Total 1100.0 ml 1660.0 ml Output Total 1800 ml 1075 ml Balance -700.0 ml 585.0 ml Free Water 80 ml 100 ml IV Total 470.0 ml 1010.0 ml Tube Feeding 550 ml 550 ml Output Urine Total 1800 ml 1075 ml # Bowel Movements 4 2 General Appearance: no acute distress, cachetic, other - Vent AC 600-40%-16 HEENT: normocephalic, atraumatic, status post trach - Portex#8, secretions small amount, yellow color, thin consistency Respiratory/Chest: chest wall non-tender, no respiratory distress, decreased breath sounds Cardiovascular: normal rate - SR, no JVD, other - PICC intact Abdomen: normal bowel sounds, soft, non tender, other - G tube Neurologic/Psychiatric: abnormal gait, other - poorly responsive by withdrawal to tactile stimuli Musculoskeletal: atrophy - BLE Microbiology Date/Time Source Procedure Growth Status 05/15/18 18:00 Femoral Central Line Catheter Tip Culture - Preliminary NO GROWTH AFTER 24 HOURS Resulted Laboratory Tests 05/18/18 04:45: White Blood Count 10.7, Red Blood Count 3.53L, Hemoglobin 10.0L, Hematocrit 29.3L, Mean Corpuscular Volume 83, Mean Corpuscular Hemoglobin 28.3, Mean Corpuscular Hemoglobin Concent 34.0, Red Cell Distribution Width 13.1, Platelet Count 237, Mean Platelet Volume 8.2, Neutrophils (%) (Auto) 68.7, Lymphocytes (% ) (Auto) 15.9L, Monocytes (%) (Auto) 10.7H, Eosinophils (%) (Auto) 4.3H, Basophils (%) (Auto) 0.4, Sodium Level 139, Potassium Level 4.2, Chloride Level 108H, Carbon Dioxide Level 23, Anion Gap 8, Blood Urea Nitrogen 14, Creatinine 1.0, Estimat Glomerular Filtration Rate > 60, Glucose Level 113#H, Calcium Level 8.7, Total Bilirubin 0.2, Aspartate Amino Transf (AST/SGOT) 12L, Alanine Aminotransferase (ALT/SGPT) 18, Alkaline Phosphatase 114, Total Protein 6.7, Albumin 2.4L, Globulin 4.3, Albumin/Globulin Ratio 0.6L Current Medications Medications (Trade) Dose Ordered Sig/Wanda Route PRN Reason Start Time Stop Time Status Last Admin Dose Admin Acetaminophen (Tylenol) 650 mg Q4H PRN ORAL T>100.5 05/13/18 20:30 06/12/18 20:29 Albuterol/ Ipratropium (Albuterol/ Ipratropium) 3 ml Q4H PRN HHN Shortness of Breath 05/13/18 20:30 05/18/18 20:29 Ceftriaxone Sodium 1 gm/ Dextrose 55 ml @ 110 mls/hr Q24H IVPB 05/15/18 21:00 05/22/18 20:59 05/17/18 21:13 Chlorhexidine Gluconate (Jasmin-Hex 2%) 1 applic DAILY@1999 TOPIC 05/15/18 20:00 06/14/18 19:59 05/17/18 20:14 Dextrose (Dextrose 50%) 25 ml STAT PRN IV Hypoglycemia 05/17/18 10:45 06/16/18 10:44 Dextrose (Dextrose 50%) 50 ml STAT PRN IV Hypoglycemia 05/17/18 10:45 06/16/18 10:44 Dextrose/Sodium Chloride 1,000 ml @ 75 mls/hr [id number] IV 05/14/18 10:00 06/13/18 09:59 05/18/18 06:33 Insulin Aspart (NovoLOG) BEFORE MEALS AND HS SUBQ 05/17/18 11:30 06/16/18 11:29 05/18/18 05:57 Insulin Detemir (Levemir) 6 units BID SUBQ 05/17/18 18:00 06/16/18 17:59 Levothyroxine Sodium (Synthroid) 50 mcg DAILY GT 05/14/18 09:00 06/13/18 08:59 05/17/18 09:18 Lorazepam (Ativan 2mg/ml 1ml) 2 mg Q2H PRN IV AGITATION 05/14/18 11:30 05/21/18 11:29 Morphine Sulfate (Morphine Sulfate) 4 mg EVERY 4 HOURS PRN IVP Severe Pain (Pain Scale 7-10) 05/13/18 20:30 05/20/18 20:29 Ondansetron HCl (Zofran) 4 mg Q6H PRN IVP Nausea & Vomiting 05/13/18 20:30 06/12/18 20:29 Pantoprazole (Protonix) 40 mg Q12H IVP 05/14/18 18:00 06/13/18 17:59 05/18/18 05:44 Polyethylene Glycol (Miralax) 17 gm DAILYPRN PRN ORAL Constipation 05/13/18 20:30 06/12/18 20:29 Quetiapine Fumarate (SEROquel) 25 mg Q6H PRN ORAL For Anxiety 05/14/18 11:30 06/13/18 11:29 Sucralfate (Carafate) 1 gm FOUR TIMES A DAY GT 05/13/18 21:00 06/12/18 20:59 05/17/18 21:12 Amina Garcia AIRPLANE TECHNICIAN May 18, 2018 08:00
--- NOTE | 2018-05-18 08:29 | General Progress Note ---
Assessment/Plan Problem List: (1) Sepsis ICD Codes: A41.9 - Sepsis, unspecified organism SNOMED: 66046045 Qualifiers: Qualified Codes: A41.9 - Sepsis, unspecified organism (2) Tracheostomy dependence ICD Codes: Z93.0 - Tracheostomy status SNOMED: 553331363, 089855860 (3) Anemia ICD Codes: D64.9 - Anemia, unspecified SNOMED: 553016679 (4) Severe protein-calorie malnutrition ICD Codes: E43 - Unspecified severe protein-calorie malnutrition SNOMED: 833322277 (5) GI bleed ICD Codes: K92.2 - Gastrointestinal hemorrhage, unspecified SNOMED: 89864577 (6) Respiratory failure, imxfq-[id number] ICD Codes: J96.20 - Respiratory failure, aebve-eu-dvuticz SNOMED: 59007423 (7) Diabetes ICD Codes: E11.9 - Type 2 diabetes mellitus without complications SNOMED: 88015054 (8) Gastritis ICD Codes: K29.70 - Gastritis SNOMED: 3643055 (9) HTN (hypertension) ICD Codes: I10 - HTN (hypertension) SNOMED: 01247332 Status: stable, progressing Assessment/Plan vent abx gi f/u cbc bmp am dc plan Subjective Constitutional: Reports: weakness Allergies: Coded Allergies: NO KNOWN DRUG ALLERGIES (Verified Allergy, Unknown, 09/11/16) All Systems: reviewed and negative except above Subjective trach vent altered Objective Last 24 Hour Vital Signs Date Time Temp Pulse Resp B/P (MAP) Pulse Ox O2 Delivery O2 Flow Rate FiO2 05/18/18 08:00 Mechanical Ventilator 05/18/18 08:00 40 05/18/18 06:44 65 16 40 05/18/18 05:25 68 18 40 05/18/18 04:00 98.6 67 16 120/62 (81) 99 98.6 05/18/18 04:00 Mechanical Ventilator 05/18/18 04:00 40 05/18/18 03:35 70 05/18/18 03:07 69 18 40 05/18/18 00:54 75 19 40 05/18/18 00:06 40 05/18/18 00:03 Mechanical Ventilator 05/18/18 00:00 98.4 71 18 155/71 (99) 100 98.4 05/18/18 00:00 85 05/17/18 22:55 75 19 40 05/17/18 20:46 74 19 40 05/17/18 20:00 98.4 76 16 132/70 (90) 100 98.4 05/17/18 20:00 40 05/17/18 20:00 Mechanical Ventilator 05/17/18 19:36 71 05/17/18 18:55 80 19 40 05/17/18 17:20 77 05/17/18 16:51 82 23 40 05/17/18 16:00 40 05/17/18 16:00 98.0 80 18 142/73 (96) 100 98.0 05/17/18 16:00 Mechanical Ventilator 05/17/18 15:22 96 22 40 05/17/18 13:15 69 16 40 05/17/18 12:00 40 05/17/18 12:00 64 05/17/18 12:00 98.0 60 20 131/56 (81) 100 98.0 05/17/18 12:00 Mechanical Ventilator 05/17/18 10:36 74 16 40 05/17/18 09:45 60 16 40 05/17/18 08:34 Mechanical Ventilator 05/17/18 08:34 97.9 80 18 147/107 (120) 100 97.9 Intake and Output 05/17/18 05/18/18 19:00 07:00 Intake Total 1100.0 ml 1660.0 ml Output Total 1800 ml 1075 ml Balance -700.0 ml 585.0 ml Free Water 80 ml 100 ml IV Total 470.0 ml 1010.0 ml Tube Feeding 550 ml 550 ml Output Urine Total 1800 ml 1075 ml # Bowel Movements 4 2 Laboratory Tests 05/18/18 04:45: White Blood Count 10.7, Red Blood Count 3.53L, Hemoglobin 10.0L, Hematocrit 29.3L, Mean Corpuscular Volume 83, Mean Corpuscular Hemoglobin 28.3, Mean Corpuscular Hemoglobin Concent 34.0, Red Cell Distribution Width 13.1, Platelet Count 237, Mean Platelet Volume 8.2, Neutrophils (%) (Auto) 68.7, Lymphocytes (% ) (Auto) 15.9L, Monocytes (%) (Auto) 10.7H, Eosinophils (%) (Auto) 4.3H, Basophils (%) (Auto) 0.4, Sodium Level 139, Potassium Level 4.2, Chloride Level 108H, Carbon Dioxide Level 23, Anion Gap 8, Blood Urea Nitrogen 14, Creatinine 1.0, Estimat Glomerular Filtration Rate > 60, Glucose Level 113#H, Calcium Level 8.7, Total Bilirubin 0.2, Aspartate Amino Transf (AST/SGOT) 12L, Alanine Aminotransferase (ALT/SGPT) 18, Alkaline Phosphatase 114, Total Protein 6.7, Albumin 2.4L, Globulin 4.3, Albumin/Globulin Ratio 0.6L Height (Feet): 5 Height (Inches): 5.00 Weight (Pounds): 125 General Appearance: lethargic EENT: normal ENT inspection Neck: normal alignment Cardiovascular: normal peripheral pulses, normal rate, regular rhythm Respiratory/Chest: chest wall non-tender, lungs clear, normal breath sounds Abdomen: normal bowel sounds, non tender, soft Extremities: normal inspection Edema: no edema noted Arm (L), no edema noted Arm (R), no edema noted Leg (L), no edema noted Leg (R), no edema noted Pedal (L), no edema noted Pedal (R), no edema noted Generalized Neurologic: motor weakness Skin: normal pigmentation, warm/dry Gato Viveros DO May 18, 2018 08:29
[2018-05-18] MEDS: Sucralfate 1gm tab GT SCH ×4 (09:02→20:34)
[2018-05-18] MEDS: Levemir Flexpen SUBQ SCH ×2 (09:41→18:53)
--- NOTE | 2018-05-18 10:37 | Infectious Diseases Prog Note ---
Assessment/Plan Assessment/Plan A: Sepsis PNA, vs UTI vs GI Blood Cx positive - Likely Contaminant GPC - Cx Pend Leukocytosis WBCs 40K on admit ; SP Fever - Resolved UGIB DM Asthma GERD Hx CVA/TIA Dementia Hx Seizures P: Continue Ceftriaxone #4/6 - End date 05/20/18 -05/17 SP Vancomycin #4 -9/ SP Zosyn x1 Monitor CBC and Temps - Vent support We will continue to follow the patient with you. Subjective Allergies: Coded Allergies: NO KNOWN DRUG ALLERGIES (Verified Allergy, Unknown, 09/11/16) Subjective afebrile no leukocytosis Objective Vital Signs Last 24 Hour Vital Signs Date Time Temp Pulse Resp B/P (MAP) Pulse Ox O2 Delivery O2 Flow Rate FiO2 05/18/18 08:54 71 18 40 05/18/18 08:00 Mechanical Ventilator 05/18/18 08:00 97.9 78 18 141/81 (101) 100 97.9 05/18/18 08:00 40 05/18/18 08:00 74 05/18/18 06:44 65 16 40 05/18/18 05:25 68 18 40 05/18/18 04:00 98.6 67 16 120/62 (81) 99 98.6 05/18/18 04:00 Mechanical Ventilator 05/18/18 04:00 40 05/18/18 03:35 70 05/18/18 03:07 69 18 40 05/18/18 00:54 75 19 40 05/18/18 00:06 40 05/18/18 00:03 Mechanical Ventilator 05/18/18 00:00 98.4 71 18 155/71 (99) 100 98.4 05/18/18 00:00 85 05/17/18 22:55 75 19 40 05/17/18 20:46 74 19 40 05/17/18 20:00 98.4 76 16 132/70 (90) 100 98.4 05/17/18 20:00 40 05/17/18 20:00 Mechanical Ventilator 05/17/18 19:36 71 05/17/18 18:55 80 19 40 05/17/18 17:20 77 05/17/18 16:51 82 23 40 05/17/18 16:00 40 05/17/18 16:00 98.0 80 18 142/73 (96) 100 98.0 05/17/18 16:00 Mechanical Ventilator 05/17/18 15:22 96 22 40 05/17/18 13:15 69 16 40 05/17/18 12:00 40 05/17/18 12:00 64 05/17/18 12:00 98.0 60 20 131/56 (81) 100 98.0 05/17/18 12:00 Mechanical Ventilator 05/17/18 10:36 74 16 40 Height (Feet): 5 Height (Inches): 5.00 Weight (Pounds): 125 Objective General Appearance: lethargic EENT: normal ENT inspection Neck: normal alignment Cardiovascular: normal peripheral pulses, normal rate, regular rhythm Respiratory/Chest: chest wall non-tender, lungs clear, normal breath sounds Abdomen: normal bowel sounds, non tender, soft Extremities: normal inspection Edema: no edema noted Arm (L), no edema noted Arm (R), no edema noted Leg (L), no edema noted Leg (R), no edema noted Pedal (L), no edema noted Pedal (R), no edema noted Generalized Neurologic: motor weakness Skin: normal pigmentation, warm/dry Microbiology Date/Time Source Procedure Growth Status 05/15/18 18:00 Femoral Central Line Catheter Tip Culture - Final Staphylococcus Sp Coag Neg Complete Laboratory Tests Test 05/18/18 04:45 White Blood Count 10.7 K/UL (4.8-10.8) Red Blood Count 3.53 M/UL (4.70-6.10) L Hemoglobin 10.0 G/DL (14.2-18.0) L Hematocrit 29.3 % (42.0-52.0) L Mean Corpuscular Volume 83 FL (80-99) Mean Corpuscular Hemoglobin 28.3 PG (27.0-31.0) Mean Corpuscular Hemoglobin Concent 34.0 G/DL (32.0-36.0) Red Cell Distribution Width 13.1 % (11.6-14.8) Platelet Count 237 K/UL (150-450) Mean Platelet Volume 8.2 FL (6.5-10.1) Neutrophils (%) (Auto) 68.7 % (45.0-75.0) Lymphocytes (%) (Auto) 15.9 % (20.0-45.0) L Monocytes (%) (Auto) 10.7 % (1.0-10.0) H Eosinophils (%) (Auto) 4.3 % (0.0-3.0) H Basophils (%) (Auto) 0.4 % (0.0-2.0) Sodium Level 139 MMOL/L (136-145) Potassium Level 4.2 MMOL/L (3.5-5.1) Chloride Level 108 MMOL/L (98-107) H Carbon Dioxide Level 23 MMOL/L (21-32) Anion Gap 8 mmol/L (5-15) Blood Urea Nitrogen 14 mg/dL (7-18) Creatinine 1.0 MG/DL (0.55-1.30) Estimat Glomerular Filtration Rate > 60 mL/min (>60) Glucose Level 113 MG/DL (74-106) #H Calcium Level 8.7 MG/DL (8.5-10.1) Total Bilirubin 0.2 MG/DL (0.2-1.0) Aspartate Amino Transf (AST/SGOT) 12 U/L (15-37) L Alanine Aminotransferase (ALT/SGPT) 18 U/L (12-78) Alkaline Phosphatase 114 U/L (46-116) Total Protein 6.7 G/DL (6.4-8.2) Albumin 2.4 G/DL (3.4-5.0) L Globulin 4.3 g/dL Albumin/Globulin Ratio 0.6 (1.0-2.7) L Current Medications Medications (Trade) Dose Ordered Sig/Wanda Route PRN Reason Start Time Stop Time Status Last Admin Dose Admin Acetaminophen (Tylenol) 650 mg Q4H PRN ORAL T>100.5 05/13/18 20:30 06/12/18 20:29 Albuterol/ Ipratropium (Albuterol/ Ipratropium) 3 ml Q4H PRN HHN Shortness of Breath 05/13/18 20:30 05/18/18 20:29 Ceftriaxone Sodium 1 gm/ Dextrose 55 ml @ 110 mls/hr Q24H IVPB 05/15/18 21:00 05/20/18 20:59 05/17/18 21:13 Chlorhexidine Gluconate (Jasmin-Hex 2%) 1 applic DAILY@1999 TOPIC 05/15/18 20:00 06/14/18 19:59 05/17/18 20:14 Dextrose (Dextrose 50%) 25 ml STAT PRN IV Hypoglycemia 05/17/18 10:45 06/16/18 10:44 Dextrose (Dextrose 50%) 50 ml STAT PRN IV Hypoglycemia 05/17/18 10:45 06/16/18 10:44 Dextrose/Sodium Chloride 1,000 ml @ 75 mls/hr [id number] IV 05/14/18 10:00 06/13/18 09:59 05/18/18 06:33 Insulin Aspart (NovoLOG) BEFORE MEALS AND HS SUBQ 05/17/18 11:30 06/16/18 11:29 05/18/18 05:57 Insulin Detemir (Levemir) 6 units BID SUBQ 05/17/18 18:00 06/16/18 17:59 05/18/18 09:41 Levothyroxine Sodium (Synthroid) 50 mcg DAILY GT 05/14/18 09:00 06/13/18 08:59 05/18/18 09:02 Lorazepam (Ativan 2mg/ml 1ml) 2 mg Q2H PRN IV AGITATION 05/14/18 11:30 05/21/18 11:29 Morphine Sulfate (Morphine Sulfate) 4 mg EVERY 4 HOURS PRN IVP Severe Pain (Pain Scale 7-10) 05/13/18 20:30 05/20/18 20:29 Ondansetron HCl (Zofran) 4 mg Q6H PRN IVP Nausea & Vomiting 05/13/18 20:30 06/12/18 20:29 Pantoprazole (Protonix) 40 mg Q12H IVP 05/14/18 18:00 06/13/18 17:59 05/18/18 05:44 Polyethylene Glycol (Miralax) 17 gm DAILYPRN PRN ORAL Constipation 05/13/18 20:30 06/12/18 20:29 Quetiapine Fumarate (SEROquel) 25 mg Q6H PRN ORAL For Anxiety 05/14/18 11:30 06/13/18 11:29 Sucralfate (Carafate) 1 gm FOUR TIMES A DAY GT 05/13/18 21:00 06/12/18 20:59 05/18/18 09:02 Lisy Lai M.D. May 18, 2018 10:37
[2018-05-18] MEDS ORDERED: Morphine Sulfate 4mg/ml Inj (IV USE ONLY) IVP PRN (11:00)
[2018-05-18] MEDS ORDERED: Albuterol/Ipratropium 3ml neb HHN PRN (11:00)
[2018-05-18 12:00] VITALS: BP 118/65
[2018-05-18 16:00] VITALS: BP 142/76
[2018-05-18] MEDS ORDERED: NS 275ml ONE (18:28)
[2018-05-18] MEDS ORDERED: D5NS 1000ml IV ONE (18:28)
[2018-05-18] MEDS ORDERED: Tubing IV Secondary IV ONE (18:28)
[2018-05-18] MEDS ORDERED: Tubing Blood Filter IV ONE (18:28)
[2018-05-18 20:00] VITALS: BP 153/69
[2018-05-18] MEDS: Dyna-Hex 2% Top Sol 2oz TOPIC SCH (20:32)
[2018-05-18] MEDS: cefTRIAXone 1 GM in D5W 55 ML IVPB SCH (20:33)
[2018-05-19] VITALS: BP 139/67
[2018-05-19 04:00] VITALS: BP 150/84
[2018-05-19 04:49] LABS: BASOPHILS % (AUTO) 0.8 % (0.0-2.0); EOSINOPHILS % (AUTO) 3.7 % (0.0-3.0); HEMATOCRIT 31.2 % (42.0-52.0); HEMOGLOBIN 10.3 G/DL (14.2-18.0); LYMPHOCYTES % (AUTO) 16.6 % (20.0-45.0); MEAN CORPUSCULAR VOLUME 84 FL (80-99); MONOCYTES % (AUTO) 10.7 % (1.0-10.0); NEUTROPHILS % (AUTO) 68.3 % (45.0-75.0); PLATELET COUNT 232 K/UL (150-450); RED BLOOD COUNT 3.71 M/UL (4.70-6.10); RED CELL DISTRIBUTION WIDTH 12.9 % (11.6-14.8); WHITE BLOOD COUNT 11.5 K/UL (4.8-10.8)
[2018-05-19 05:21] LABS: ANION GAP 7 mmol/L (5-15); BLOOD UREA NITROGEN 14 mg/dL (7-18); CALCIUM 8.9 MG/DL (8.5-10.1); CARBON DIOXIDE 23 MMOL/L (21-32); CHLORIDE 104 MMOL/L (98-107); SODIUM 134 MMOL/L (136-145)
[2018-05-19] MEDS: Pantoprazole Inj IVP SCH ×2 (06:26→17:08)
[2018-05-19] MEDS: NovoLOG Insulin Flexpen SUBQ SCH ×4 (06:28→21:00)
[2018-05-19 08:00] VITALS: BP 133/63
--- NOTE | 2018-05-19 08:06 | Pulmonology Progress Note ---
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 PLAN OF CARE LUIS vent support, trach care pulmonary toilet baseline ABG stable on current settings, keep as is and titrate prn chest x-ray with evidence of atelectasis , but no evidence of pneumonia suction as needed abx, ID follows blood cx + SCON, likely contaminant as per ID, urine cx + Providencia fever and leukocytosis resolved central line discontinued , preliminary cath tip cx+ SCON PICC line placed ID follows GI closely follows s/p upper endoscopy with finding of severe stricture at GE junction no dilatation performed tube feeding started via G-tube feeding with strict aspiration / reflux precautions and monitoring for tolerance PPI twice a day and Carafate no further episodes of GI bleeding bowel regimen instituted HH monitor with goal to keep Hgb> 7 , at baseline s/p PRBC transfusion anemia w/up c/w anemia of chronic disease venous duplex BLE negative psychiatry seen and evaluated , patient lacks capacity to make an informed decision 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 repeat blood cx case discussed and evaluated by supervising physician Subjective Allergies: Coded Allergies: NO KNOWN DRUG ALLERGIES (Verified Allergy, Unknown, 09/11/16) Subjective mild leukocytosis, afebrile, no signs of resp distress on current settings HH stable Objective Last 24 Hour Vital Signs Date Time Temp Pulse Resp B/P (MAP) Pulse Ox O2 Delivery O2 Flow Rate FiO2 05/19/18 06:54 61 19 40 05/19/18 05:03 75 18 40 05/19/18 04:00 63 05/19/18 04:00 40 05/19/18 04:00 Mechanical Ventilator 05/19/18 04:00 97.7 71 17 150/84 (106) 99 97.7 05/19/18 03:10 66 16 40 05/19/18 01:13 68 16 40 05/19/18 00:00 98.1 69 16 139/67 (91) 99 98.1 05/19/18 00:00 40 05/19/18 00:00 Mechanical Ventilator 05/19/18 00:00 69 05/18/18 23:20 68 16 Mechanical Ventilator 40 05/18/18 23:20 76 16 40 05/18/18 21:00 71 16 40 05/18/18 20:00 Mechanical Ventilator 05/18/18 20:00 69 05/18/18 20:00 98.2 74 20 153/69 (97) 100 98.2 05/18/18 20:00 40 05/18/18 19:18 66 16 40 05/18/18 16:31 79 17 40 05/18/18 16:00 40 05/18/18 16:00 80 05/18/18 16:00 98.1 78 18 142/76 (98) 99 98.1 05/18/18 16:00 Mechanical Ventilator 05/18/18 14:36 61 16 40 05/18/18 12:31 71 16 40 05/18/18 12:00 66 05/18/18 12:00 97.9 71 20 118/65 (82) 98 97.9 05/18/18 12:00 Mechanical Ventilator 05/18/18 12:00 40 05/18/18 10:34 69 16 40 05/18/18 08:54 71 18 40 Intake and Output 05/18/18 05/19/18 19:00 07:00 Intake Total 1650 ml 1385 ml Output Total 850 ml 500 ml Balance 800 ml 885 ml Free Water 300 ml 130 ml IV Total 750 ml 955 ml Tube Feeding 600 ml 300 ml Output Urine Total 850 ml 500 ml # Bowel Movements 3 1 Objective General Appearance: no acute distress, cachetic, Vent AC 600-40%-16 HEENT: normocephalic, atraumatic, status post trach - Portex#8, secretions small amount, yellow color, thin consistency Respiratory/Chest: chest wall non-tender, no respiratory distress, decreased breath sounds Cardiovascular: normal rate - SR, no JVD, other - PICC intact Abdomen: normal bowel sounds, soft, non tender, other - G tube Neurologic/Psychiatric: abnormal gait, other - poorly responsive by withdrawal to tactile stimuli Musculoskeletal: atrophy - BLE Laboratory Tests 05/19/18 04:00: White Blood Count 11.5H, Red Blood Count 3.71L, Hemoglobin 10.3L, Hematocrit 31.2L, Mean Corpuscular Volume 84, Mean Corpuscular Hemoglobin 27.7, Mean Corpuscular Hemoglobin Concent 33.0, Red Cell Distribution Width 12.9, Platelet Count 232, Mean Platelet Volume 8.1, Neutrophils (%) (Auto) 68.3, Lymphocytes (% ) (Auto) 16.6L, Monocytes (%) (Auto) 10.7H, Eosinophils (%) (Auto) 3.7H, Basophils (%) (Auto) 0.8, Sodium Level 134L, Potassium Level 4.0, Chloride Level 104, Carbon Dioxide Level 23, Anion Gap 7, Blood Urea Nitrogen 14, Creatinine 1.0, Estimat Glomerular Filtration Rate > 60, Glucose Level 94, Calcium Level 8.9 Current Medications Medications (Trade) Dose Ordered Sig/Wanda Route PRN Reason Start Time Stop Time Status Last Admin Dose Admin Acetaminophen (Tylenol) 650 mg Q4H PRN ORAL T>100.5 05/13/18 20:30 06/12/18 20:29 Albuterol/ Ipratropium (Albuterol/ Ipratropium) 3 ml Q4H PRN HHN Shortness of Breath 05/18/18 11:00 05/23/18 10:59 Ceftriaxone Sodium 1 gm/ Dextrose 55 ml @ 110 mls/hr Q24H IVPB 05/15/18 21:00 05/20/18 20:59 05/18/18 20:33 Chlorhexidine Gluconate (Jasmin-Hex 2%) 1 applic DAILY@2000 TOPIC 05/15/18 20:00 06/14/18 19:59 05/18/18 20:32 Dextrose (Dextrose 50%) 25 ml STAT PRN IV Hypoglycemia 05/17/18 10:45 06/16/18 10:44 Dextrose (Dextrose 50%) 50 ml STAT PRN IV Hypoglycemia 05/17/18 10:45 06/16/18 10:44 Dextrose/Sodium Chloride 1,000 ml @ 75 mls/hr [id number] IV 05/14/18 10:00 06/13/18 09:59 05/18/18 20:32 Insulin Aspart (NovoLOG) BEFORE MEALS AND HS SUBQ 05/17/18 11:30 06/16/18 11:29 05/19/18 06:28 Insulin Detemir (Levemir) 6 units BID SUBQ 05/17/18 18:00 06/16/18 17:59 05/18/18 18:53 Levothyroxine Sodium (Synthroid) 50 mcg DAILY GT 05/14/18 09:00 06/13/18 08:59 05/18/18 09:02 Lorazepam (Ativan 2mg/ml 1ml) 2 mg Q2H PRN IV AGITATION 05/14/18 11:30 05/21/18 11:29 Morphine Sulfate (Morphine Sulfate) 4 mg Q4H PRN IVP Severe Pain (Pain Scale 7-10) 05/18/18 11:00 05/25/18 10:59 Ondansetron HCl (Zofran) 4 mg Q6H PRN IVP Nausea & Vomiting 05/13/18 20:30 06/12/18 20:29 Pantoprazole (Protonix) 40 mg Q12H IVP 05/14/18 18:00 06/13/18 17:59 05/19/18 06:26 Polyethylene Glycol (Miralax) 17 gm DAILYPRN PRN ORAL Constipation 05/13/18 20:30 06/12/18 20:29 Quetiapine Fumarate (SEROquel) 25 mg Q6H PRN ORAL For Anxiety 05/14/18 11:30 06/13/18 11:29 Sucralfate (Carafate) 1 gm FOUR TIMES A DAY GT 05/13/18 21:00 06/12/18 20:59 05/18/18 20:34 Amina Garcia NP May 19, 2018 08:06
--- NOTE | 2018-05-19 08:33 | General Progress Note ---
Assessment/Plan Problem List: (1) Sepsis ICD Codes: A41.9 - Sepsis, unspecified organism SNOMED: 05817736 Qualifiers: Qualified Codes: A41.9 - Sepsis, unspecified organism (2) Tracheostomy dependence ICD Codes: Z93.0 - Tracheostomy status SNOMED: 853060393, 041712295 (3) Anemia ICD Codes: D64.9 - Anemia, unspecified SNOMED: 548057594 (4) Severe protein-calorie malnutrition ICD Codes: E43 - Unspecified severe protein-calorie malnutrition SNOMED: 167802949 (5) GI bleed ICD Codes: K92.2 - Gastrointestinal hemorrhage, unspecified SNOMED: 43881345 (6) Respiratory failure, [id number] ICD Codes: J96.20 - Respiratory failure, tudcy-bd-zfvkake SNOMED: 47314759 (7) Diabetes ICD Codes: E11.9 - Type 2 diabetes mellitus without complications SNOMED: 96142433 (8) Gastritis ICD Codes: K29.70 - Gastritis SNOMED: 6409352 (9) HTN (hypertension) ICD Codes: I10 - HTN (hypertension) SNOMED: 57341183 Status: unchanged Assessment/Plan vent abx gi f/u cbc bmp am promise ltach eval Subjective Constitutional: Reports: weakness Allergies: Coded Allergies: NO KNOWN DRUG ALLERGIES (Verified Allergy, Unknown, 09/11/16) All Systems: reviewed and negative except above Subjective trach vent altered Objective Last 24 Hour Vital Signs Date Time Temp Pulse Resp B/P (MAP) Pulse Ox O2 Delivery O2 Flow Rate FiO2 05/19/18 06:54 61 19 40 05/19/18 05:03 75 18 40 05/19/18 04:00 63 05/19/18 04:00 40 05/19/18 04:00 Mechanical Ventilator 05/19/18 04:00 97.7 71 17 150/84 (106) 99 97.7 05/19/18 03:10 66 16 40 05/19/18 01:13 68 16 40 05/19/18 00:00 98.1 69 16 139/67 (91) 99 98.1 05/19/18 00:00 40 05/19/18 00:00 Mechanical Ventilator 05/19/18 00:00 69 05/18/18 23:20 68 16 Mechanical Ventilator 40 05/18/18 23:20 76 16 40 05/18/18 21:00 71 16 40 05/18/18 20:00 Mechanical Ventilator 05/18/18 20:00 69 05/18/18 20:00 98.2 74 20 153/69 (97) 100 98.2 05/18/18 20:00 40 05/18/18 19:18 66 16 40 05/18/18 16:31 79 17 40 05/18/18 16:00 40 05/18/18 16:00 80 05/18/18 16:00 98.1 78 18 142/76 (98) 99 98.1 05/18/18 16:00 Mechanical Ventilator 05/18/18 14:36 61 16 40 05/18/18 12:31 71 16 40 05/18/18 12:00 66 05/18/18 12:00 97.9 71 20 118/65 (82) 98 97.9 05/18/18 12:00 Mechanical Ventilator 05/18/18 12:00 40 05/18/18 10:34 69 16 40 05/18/18 08:54 71 18 40 Intake and Output 05/18/18 05/19/18 19:00 07:00 Intake Total 1650 ml 1385 ml Output Total 850 ml 500 ml Balance 800 ml 885 ml Free Water 300 ml 130 ml IV Total 750 ml 955 ml Tube Feeding 600 ml 300 ml Output Urine Total 850 ml 500 ml # Bowel Movements 3 1 Laboratory Tests 05/19/18 04:00: White Blood Count 11.5H, Red Blood Count 3.71L, Hemoglobin 10.3L, Hematocrit 31.2L, Mean Corpuscular Volume 84, Mean Corpuscular Hemoglobin 27.7, Mean Corpuscular Hemoglobin Concent 33.0, Red Cell Distribution Width 12.9, Platelet Count 232, Mean Platelet Volume 8.1, Neutrophils (%) (Auto) 68.3, Lymphocytes (% ) (Auto) 16.6L, Monocytes (%) (Auto) 10.7H, Eosinophils (%) (Auto) 3.7H, Basophils (%) (Auto) 0.8, Sodium Level 134L, Potassium Level 4.0, Chloride Level 104, Carbon Dioxide Level 23, Anion Gap 7, Blood Urea Nitrogen 14, Creatinine 1.0, Estimat Glomerular Filtration Rate > 60, Glucose Level 94, Calcium Level 8.9 Height (Feet): 5 Height (Inches): 5.00 Weight (Pounds): 125 General Appearance: lethargic EENT: normal ENT inspection Neck: normal alignment Cardiovascular: normal peripheral pulses, normal rate, regular rhythm Respiratory/Chest: chest wall non-tender, lungs clear, normal breath sounds Abdomen: normal bowel sounds, non tender, soft Extremities: normal inspection Edema: no edema noted Arm (L), no edema noted Arm (R), no edema noted Leg (L), no edema noted Leg (R), no edema noted Pedal (L), no edema noted Pedal (R), no edema noted Generalized Neurologic: motor weakness Skin: normal pigmentation, warm/dry Gato Viveros DO May 19, 2018 08:33
[2018-05-19] MEDS: Sucralfate 1gm tab GT SCH ×4 (08:52→21:46)
[2018-05-19] MEDS: D5NS 1,000 ML IV SCH ×2 (08:52→23:01)
[2018-05-19] MEDS: Levemir Flexpen SUBQ SCH ×2 (08:52→17:08)
[2018-05-19] MEDS ORDERED: NS 275ml ONE (09:20)
[2018-05-19] MEDS ORDERED: LORazepam Inj 2mg/ml 1ml IV PRN (10:30)
[2018-05-19 12:00] VITALS: BP 130/70
[2018-05-19 16:00] VITALS: BP 124/74
[2018-05-19 20:00] VITALS: BP 113/64
[2018-05-19] MEDS: Dyna-Hex 2% Top Sol 2oz TOPIC SCH (21:45)
[2018-05-19] MEDS: cefTRIAXone 1 GM in D5W 55 ML IVPB SCH (21:46)
[2018-05-20] VITALS: BP 130/86
[2018-05-20 04:00] VITALS: BP 142/89
[2018-05-20 05:08] LABS: BASOPHILS % (AUTO) 0.7 % (0.0-2.0); EOSINOPHILS % (AUTO) 4.5 % (0.0-3.0); HEMATOCRIT 32.3 % (42.0-52.0); HEMOGLOBIN 10.4 G/DL (14.2-18.0); LYMPHOCYTES % (AUTO) 15.6 % (20.0-45.0); MEAN CORPUSCULAR VOLUME 84 FL (80-99); NEUTROPHILS % (AUTO) 70.2 % (45.0-75.0); PLATELET COUNT 269 K/UL (150-450); RED BLOOD COUNT 3.83 M/UL (4.70-6.10); RED CELL DISTRIBUTION WIDTH 13.6 % (11.6-14.8); WHITE BLOOD COUNT 11.1 K/UL (4.8-10.8)
[2018-05-20 05:31] LABS: ANION GAP 7 mmol/L (5-15); BLOOD UREA NITROGEN 16 mg/dL (7-18); CARBON DIOXIDE 25 MMOL/L (21-32); CHLORIDE 105 MMOL/L (98-107); POTASSIUM 4.3 MMOL/L (3.5-5.1); SODIUM 137 MMOL/L (136-145)
[2018-05-20] MEDS: Pantoprazole Inj IVP SCH ×2 (05:54→18:24)
[2018-05-20] MEDS: NovoLOG Insulin Flexpen SUBQ SCH ×4 (05:56→21:01)
[2018-05-20 08:00] VITALS: BP 141/65
[2018-05-20] MEDS: Sucralfate 1gm tab GT SCH ×4 (08:05→20:56)
--- NOTE | 2018-05-20 08:51 | Infectious Diseases Prog Note ---
Assessment/Plan Assessment/Plan A: Sepsis PNA, vs UTI vs GI Blood Cx positive - Likely Contaminant 05/13 BCx Staph epi - Cx Pend 05/15 Cat tip Cx - Staph epi 05/19 BCx - NGTD Leukocytosis WBCs 40K on admit Improving Fever - Resolved UGIB DM Asthma GERD Hx CVA/TIA Dementia Hx Seizures P: Continue Ceftriaxone #6/6 - End date 05/20/18 9/7 SP Vancomycin #4 05/13 SP Zosyn x1 Monitor CBC and Temps - Vent support We will continue to follow the patient with you. Subjective Allergies: Coded Allergies: NO KNOWN DRUG ALLERGIES (Verified Allergy, Unknown, 09/11/16) Subjective Patient trached Sat well on a vent 40% O2 Afebrile Objective Vital Signs Last 24 Hour Vital Signs Date Time Temp Pulse Resp B/P (MAP) Pulse Ox O2 Delivery O2 Flow Rate FiO2 05/20/18 08:00 98.2 69 17 141/65 (90) 100 98.2 05/20/18 08:00 40 05/20/18 06:40 67 17 40 05/20/18 04:31 75 17 40 05/20/18 04:00 40 05/20/18 04:00 98.1 82 18 142/89 (106) 99 98.1 05/20/18 04:00 Mechanical Ventilator 05/20/18 04:00 72 05/20/18 02:46 71 16 40 05/20/18 00:36 66 16 40 05/20/18 00:00 40 05/20/18 00:00 Mechanical Ventilator 05/20/18 00:00 98.2 72 24 130/86 (101) 99 98.2 05/20/18 00:00 68 05/19/18 23:15 73 17 40 05/19/18 21:01 73 16 40 05/19/18 20:00 62 05/19/18 20:00 98.1 65 17 113/64 (80) 100 98.1 05/19/18 20:00 Mechanical Ventilator 05/19/18 20:00 40 05/19/18 19:03 64 16 40 05/19/18 17:05 78 18 40 05/19/18 16:00 98.5 64 16 124/74 (91) 95 98.5 05/19/18 16:00 Mechanical Ventilator 05/19/18 15:30 40 05/19/18 15:19 77 16 40 05/19/18 15:12 69 05/19/18 12:45 63 16 30 05/19/18 12:00 Mechanical Ventilator 05/19/18 12:00 57 05/19/18 12:00 98.5 62 16 130/70 (90) 99 98.5 05/19/18 11:08 78 17 30 05/19/18 09:20 70 16 30 05/19/18 09:13 30 Height (Feet): 5 Height (Inches): 5.00 Weight (Pounds): 125 Objective General Appearance: NAD - nonverbal, On vent Head: NCAT, MMM, Tracheotomy, Respiratory: CTAB, no Wheezing Cardiovascular: RRR, S1, S2 Gastrointestinal: Soft, NT, ND, + BS, Gtube No Erythema, or purulent drainage Microbiology Date/Time Source Procedure Growth Status 05/18/18 12:10 Blood Blood Culture - Preliminary NO GROWTH AFTER 24 HOURS Resulted 05/18/18 12:00 Blood Blood Culture - Preliminary NO GROWTH AFTER 24 HOURS Resulted Laboratory Tests Test 05/19/18 09:04 05/20/18 04:10 Arterial Blood pH 7.410 (7.350-7.450) Arterial Blood Partial Pressure CO2 32.5 mmHg (35.0-45.0) L Arterial Blood Partial Pressure O2 163.3 mmHg (75.0-100.0) H Arterial Blood HCO3 20.5 mmol/L (22.0-26.0) L Arterial Blood Oxygen Saturation 98.8 % (92.0-98.0) H Arterial Blood Base Excess -3.3 Ger Test Positive White Blood Count 11.1 K/UL (4.8-10.8) H Red Blood Count 3.83 M/UL (4.70-6.10) L Hemoglobin 10.4 G/DL (14.2-18.0) L Hematocrit 32.3 % (42.0-52.0) L Mean Corpuscular Volume 84 FL (80-99) Mean Corpuscular Hemoglobin 27.1 PG (27.0-31.0) Mean Corpuscular Hemoglobin Concent 32.2 G/DL (32.0-36.0) Red Cell Distribution Width 13.6 % (11.6-14.8) Platelet Count 269 K/UL (150-450) Mean Platelet Volume 8.5 FL (6.5-10.1) Neutrophils (%) (Auto) 70.2 % (45.0-75.0) Lymphocytes (%) (Auto) 15.6 % (20.0-45.0) L Monocytes (%) (Auto) 9.0 % (1.0-10.0) Eosinophils (%) (Auto) 4.5 % (0.0-3.0) H Basophils (%) (Auto) 0.7 % (0.0-2.0) Sodium Level 137 MMOL/L (136-145) Potassium Level 4.3 MMOL/L (3.5-5.1) Chloride Level 105 MMOL/L (98-107) Carbon Dioxide Level 25 MMOL/L (21-32) Anion Gap 7 mmol/L (5-15) Blood Urea Nitrogen 16 mg/dL (7-18) Creatinine 1.0 MG/DL (0.55-1.30) Estimat Glomerular Filtration Rate > 60 mL/min (>60) Glucose Level 96 MG/DL (74-106) Calcium Level 9.0 MG/DL (8.5-10.1) Current Medications Medications (Trade) Dose Ordered Sig/Wanda Route PRN Reason Start Time Stop Time Status Last Admin Dose Admin Acetaminophen (Tylenol) 650 mg Q4H PRN ORAL T>100.5 05/13/18 20:30 06/12/18 20:29 Albuterol/ Ipratropium (Albuterol/ Ipratropium) 3 ml Q4H PRN HHN Shortness of Breath 05/18/18 11:00 05/23/18 10:59 Ceftriaxone Sodium 1 gm/ Dextrose 55 ml @ 110 mls/hr Q24H IVPB 05/15/18 21:00 05/20/18 20:59 05/19/18 21:46 Chlorhexidine Gluconate (Jasmin-Hex 2%) 1 applic DAILY@1999 TOPIC 05/15/18 20:00 06/14/18 19:59 05/19/18 21:45 Dextrose (Dextrose 50%) 25 ml STAT PRN IV Hypoglycemia 05/17/18 10:45 06/16/18 10:44 Dextrose (Dextrose 50%) 50 ml STAT PRN IV Hypoglycemia 05/17/18 10:45 06/16/18 10:44 Dextrose/Sodium Chloride 1,000 ml @ 75 mls/hr [id number] IV 05/14/18 10:00 06/13/18 09:59 05/19/18 23:01 Insulin Aspart (NovoLOG) BEFORE MEALS AND HS SUBQ 05/17/18 11:30 06/16/18 11:29 05/20/18 05:56 Insulin Detemir (Levemir) 6 units BID SUBQ 05/17/18 18:00 06/16/18 17:59 05/19/18 17:08 Levothyroxine Sodium (Synthroid) 50 mcg DAILY GT 05/14/18 09:00 06/13/18 08:59 05/20/18 08:04 Lorazepam (Ativan 2mg/ml 1ml) 2 mg Q2H PRN IV AGITATION 05/19/18 10:30 05/26/18 10:29 Morphine Sulfate (Morphine Sulfate) 4 mg Q4H PRN IVP Severe Pain (Pain Scale 7-10) 05/18/18 11:00 05/25/18 10:59 Ondansetron HCl (Zofran) 4 mg Q6H PRN IVP Nausea & Vomiting 05/13/18 20:30 06/12/18 20:29 Pantoprazole (Protonix) 40 mg Q12H IVP 05/14/18 18:00 06/13/18 17:59 05/20/18 05:54 Polyethylene Glycol (Miralax) 17 gm DAILYPRN PRN ORAL Constipation 05/13/18 20:30 06/12/18 20:29 Quetiapine Fumarate (SEROquel) 25 mg Q6H PRN ORAL For Anxiety 05/14/18 11:30 06/13/18 11:29 Sucralfate (Carafate) 1 gm FOUR TIMES A DAY GT 05/13/18 21:00 06/12/18 20:59 05/20/18 08:05 John Fiore MD May 20, 2018 08:51
[2018-05-20] MEDS: Levemir Flexpen SUBQ SCH ×2 (09:37→18:24)
--- NOTE | 2018-05-20 10:41 | Diagnostic Imaging Report ---
Indication: Shortness of breath Technique: One view of the chest Comparison: 05/15/2018 post PICC radiograph Findings: Stable satisfactory position right arm PICC. Lungs and pleural spaces remain clear, allowing for degree of rotation. Heart size is normal. Tracheostomy remains Impression: No definite acute process
--- NOTE | 2018-05-20 10:42 | Pulmonology Progress Note ---
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 PLAN OF CARE LUIS vent support, trach care pulmonary toilet baseline ABG stable on current settings, keep as is and titrate prn chest x-ray with evidence of atelectasis , but no evidence of pneumonia suction as needed abx, ID follows blood cx + SCON, likely contaminant as per ID, urine cx + Providencia fever and leukocytosis resolved central line discontinued , preliminary cath tip cx+ SCON PICC line placed ID follows GI closely follows f/up blood cx prel negative, likely contaminant as per ID s/p upper endoscopy with finding of severe stricture at GE junction no dilatation performed tube feeding started via G-tube feeding with strict aspiration / reflux precautions and monitoring for tolerance PPI twice a day and Carafate no further episodes of GI bleeding bowel regimen instituted HH monitor with goal to keep Hgb> 7 , at baseline s/p PRBC transfusion anemia w/up c/w anemia of chronic disease venous duplex BLE negative psychiatry seen and evaluated , patient lacks capacity to make an informed decision zigzag stitcher recommendations implemented in plan of care supportive care pain management addressed dc plan to SNF with abx regimen as per ID recommendations case discussed and evaluated by supervising physician Subjective Allergies: Coded Allergies: NO KNOWN DRUG ALLERGIES (Verified Allergy, Unknown, 09/11/16) Subjective mild leukocytosis, afebrile, no signs of resp distress on current settings HH stable no further episodes of GI bleeding Objective Last 24 Hour Vital Signs Date Time Temp Pulse Resp B/P (MAP) Pulse Ox O2 Delivery O2 Flow Rate FiO2 05/20/18 09:20 65 16 40 05/20/18 08:00 67 05/20/18 08:00 98.2 69 17 141/65 (90) 100 98.2 05/20/18 08:00 40 05/20/18 06:40 67 17 40 05/20/18 04:31 75 17 40 05/20/18 04:00 40 05/20/18 04:00 98.1 82 18 142/89 (106) 99 98.1 05/20/18 04:00 Mechanical Ventilator 05/20/18 04:00 72 05/20/18 02:46 71 16 40 05/20/18 00:36 66 16 40 05/20/18 00:00 40 05/20/18 00:00 Mechanical Ventilator 05/20/18 00:00 98.2 72 24 130/86 (101) 99 98.2 05/20/18 00:00 68 05/19/18 23:15 73 17 40 05/19/18 21:01 73 16 40 05/19/18 20:00 62 05/19/18 20:00 98.1 65 17 113/64 (80) 100 98.1 05/19/18 20:00 Mechanical Ventilator 05/19/18 20:00 40 05/19/18 19:03 64 16 40 05/19/18 17:05 78 18 40 05/19/18 16:00 98.5 64 16 124/74 (91) 95 98.5 05/19/18 16:00 Mechanical Ventilator 05/19/18 15:30 40 05/19/18 15:19 77 16 40 05/19/18 15:12 69 05/19/18 12:45 63 16 30 05/19/18 12:00 Mechanical Ventilator 05/19/18 12:00 57 05/19/18 12:00 98.5 62 16 130/70 (90) 99 98.5 05/19/18 11:08 78 17 30 Intake and Output 05/19/18 05/20/18 19:00 07:00 Intake Total 427.5 ml 1805 ml Output Total 2000 ml 1000 ml Balance -1572.5 ml 805 ml Free Water 100 ml 150 ml IV Total 227.5 ml 955 ml Tube Feeding 100 ml 600 ml Other 100 ml Output Urine Total 2000 ml 1000 ml # Bowel Movements 2 Objective General Appearance: no acute distress, cachetic, Vent AC 600-40%-16 HEENT: normocephalic, atraumatic, status post trach - Portex#8, secretions small amount, yellow color, thin consistency Respiratory/Chest: chest wall non-tender, no respiratory distress, decreased breath sounds Cardiovascular: normal rate - SR, no JVD, PICC intact Abdomen: normal bowel sounds, soft, non tender, G tube with TF Neurologic/Psychiatric: abnormal gait, poorly responsive by withdrawal to tactile stimuli Musculoskeletal: atrophy - BLE Microbiology Date/Time Source Procedure Growth Status 9/8/18 12:10 Blood Blood Culture - Preliminary NO GROWTH AFTER 24 HOURS Resulted 05/18/18 12:00 Blood Blood Culture - Preliminary NO GROWTH AFTER 24 HOURS Resulted Laboratory Tests 05/20/18 04:10: White Blood Count 11.1H, Red Blood Count 3.83L, Hemoglobin 10.4L, Hematocrit 32.3L, Mean Corpuscular Volume 84, Mean Corpuscular Hemoglobin 27.1, Mean Corpuscular Hemoglobin Concent 32.2, Red Cell Distribution Width 13.6, Platelet Count 269, Mean Platelet Volume 8.5, Neutrophils (%) (Auto) 70.2, Lymphocytes (% ) (Auto) 15.6L, Monocytes (%) (Auto) 9.0, Eosinophils (%) (Auto) 4.5H, Basophils (%) (Auto) 0.7, Sodium Level 137, Potassium Level 4.3, Chloride Level 105, Carbon Dioxide Level 25, Anion Gap 7, Blood Urea Nitrogen 16, Creatinine 1.0, Estimat Glomerular Filtration Rate > 60, Glucose Level 96, Calcium Level 9.0 Current Medications Medications (Trade) Dose Ordered Sig/Wanda Route PRN Reason Start Time Stop Time Status Last Admin Dose Admin Acetaminophen (Tylenol) 650 mg Q4H PRN ORAL T>100.5 05/13/18 20:30 06/12/18 20:29 Albuterol/ Ipratropium (Albuterol/ Ipratropium) 3 ml Q4H PRN HHN Shortness of Breath 05/18/18 11:00 05/23/18 10:59 Ceftriaxone Sodium 1 gm/ Dextrose 55 ml @ 110 mls/hr Q24H IVPB 05/15/18 21:00 05/20/18 20:59 05/19/18 21:46 Chlorhexidine Gluconate (Jasmin-Hex 2%) 1 applic DAILY@2000 TOPIC 05/15/18 20:00 06/14/18 19:59 05/19/18 21:45 Dextrose (Dextrose 50%) 25 ml STAT PRN IV Hypoglycemia 05/17/18 10:45 06/16/18 10:44 Dextrose (Dextrose 50%) 50 ml STAT PRN IV Hypoglycemia 05/17/18 10:45 06/16/18 10:44 Dextrose/Sodium Chloride 1,000 ml @ 75 mls/hr [id number] IV 05/14/18 10:00 06/13/18 09:59 05/19/18 23:01 Insulin Aspart (NovoLOG) BEFORE MEALS AND HS SUBQ 05/17/18 11:30 06/16/18 11:29 05/20/18 05:56 Insulin Detemir (Levemir) 6 units BID SUBQ 05/17/18 18:00 06/16/18 17:59 05/20/18 09:37 Levothyroxine Sodium (Synthroid) 50 mcg DAILY GT 05/14/18 09:00 06/13/18 08:59 05/20/18 08:04 Lorazepam (Ativan 2mg/ml 1ml) 2 mg Q2H PRN IV AGITATION 05/19/18 10:30 05/26/18 10:29 Morphine Sulfate (Morphine Sulfate) 4 mg Q4H PRN IVP Severe Pain (Pain Scale 7-10) 05/18/18 11:00 05/25/18 10:59 Ondansetron HCl (Zofran) 4 mg Q6H PRN IVP Nausea & Vomiting 05/13/18 20:30 06/12/18 20:29 Pantoprazole (Protonix) 40 mg Q12H IVP 05/14/18 18:00 06/13/18 17:59 05/20/18 05:54 Polyethylene Glycol (Miralax) 17 gm DAILYPRN PRN ORAL Constipation 05/13/18 20:30 06/12/18 20:29 Quetiapine Fumarate (SEROquel) 25 mg Q6H PRN ORAL For Anxiety 05/14/18 11:30 06/13/18 11:29 Sucralfate (Carafate) 1 gm FOUR TIMES A DAY GT 05/13/18 21:00 06/12/18 20:59 05/20/18 08:05 Amina Garcia GEAR HOBBER May 20, 2018 10:42
--- NOTE | 2018-05-20 11:21 | General Progress Note ---
Assessment/Plan Problem List: (1) Sepsis ICD Codes: A41.9 - Sepsis, unspecified organism SNOMED: 28131306 Qualifiers: Qualified Codes: A41.9 - Sepsis, unspecified organism (2) Tracheostomy dependence ICD Codes: Z93.0 - Tracheostomy status SNOMED: 092365594, 004670974 (3) Anemia ICD Codes: D64.9 - Anemia, unspecified SNOMED: 852513728 (4) Severe protein-calorie malnutrition ICD Codes: E43 - Unspecified severe protein-calorie malnutrition SNOMED: 832534437 (5) GI bleed ICD Codes: K92.2 - Gastrointestinal hemorrhage, unspecified SNOMED: 27854360 (6) Respiratory failure, [id number] ICD Codes: J96.20 - Respiratory failure, evlwl-jv-rvxroim SNOMED: 05329488 (7) Diabetes ICD Codes: E11.9 - Type 2 diabetes mellitus without complications SNOMED: 47396342 (8) Gastritis ICD Codes: K29.70 - Gastritis SNOMED: 3307467 (9) HTN (hypertension) ICD Codes: I10 - HTN (hypertension) SNOMED: 59856964 Status: stable, progressing Assessment/Plan vent abx gi f/u cbc bmp am promise ltach eval Subjective Constitutional: Reports: weakness Allergies: Coded Allergies: NO KNOWN DRUG ALLERGIES (Verified Allergy, Unknown, 09/11/16) All Systems: reviewed and negative except above Subjective trach vent altered Objective Last 24 Hour Vital Signs Date Time Temp Pulse Resp B/P (MAP) Pulse Ox O2 Delivery O2 Flow Rate FiO2 05/20/18 09:20 65 16 40 05/20/18 08:00 67 05/20/18 08:00 98.2 69 17 141/65 (90) 100 98.2 05/20/18 08:00 Mechanical Ventilator 05/20/18 08:00 40 05/20/18 06:40 67 17 40 05/20/18 04:31 75 17 40 05/20/18 04:00 40 05/20/18 04:00 98.1 82 18 142/89 (106) 99 98.1 05/20/18 04:00 Mechanical Ventilator 05/20/18 04:00 72 05/20/18 02:46 71 16 40 05/20/18 00:36 66 16 40 05/20/18 00:00 40 05/20/18 00:00 Mechanical Ventilator 05/20/18 00:00 98.2 72 24 130/86 (101) 99 98.2 05/20/18 00:00 68 05/19/18 23:15 73 17 40 05/19/18 21:01 73 16 40 05/19/18 20:00 62 05/19/18 20:00 98.1 65 17 113/64 (80) 100 98.1 05/19/18 20:00 Mechanical Ventilator 05/19/18 20:00 40 05/19/18 19:03 64 16 40 05/19/18 17:05 78 18 40 05/19/18 16:00 98.5 64 16 124/74 (91) 95 98.5 05/19/18 16:00 Mechanical Ventilator 05/19/18 15:30 40 05/19/18 15:19 77 16 40 05/19/18 15:12 69 05/19/18 12:45 63 16 30 05/19/18 12:00 Mechanical Ventilator 05/19/18 12:00 57 05/19/18 12:00 98.5 62 16 130/70 (90) 99 98.5 Intake and Output 05/19/18 05/20/18 19:00 07:00 Intake Total 427.5 ml 1805 ml Output Total 2000 ml 1000 ml Balance -1572.5 ml 805 ml Free Water 100 ml 150 ml IV Total 227.5 ml 955 ml Tube Feeding 100 ml 600 ml Other 100 ml Output Urine Total 2000 ml 1000 ml # Bowel Movements 2 Laboratory Tests 05/20/18 04:10: White Blood Count 11.1H, Red Blood Count 3.83L, Hemoglobin 10.4L, Hematocrit 32.3L, Mean Corpuscular Volume 84, Mean Corpuscular Hemoglobin 27.1, Mean Corpuscular Hemoglobin Concent 32.2, Red Cell Distribution Width 13.6, Platelet Count 269, Mean Platelet Volume 8.5, Neutrophils (%) (Auto) 70.2, Lymphocytes (% ) (Auto) 15.6L, Monocytes (%) (Auto) 9.0, Eosinophils (%) (Auto) 4.5H, Basophils (%) (Auto) 0.7, Sodium Level 137, Potassium Level 4.3, Chloride Level 105, Carbon Dioxide Level 25, Anion Gap 7, Blood Urea Nitrogen 16, Creatinine 1.0, Estimat Glomerular Filtration Rate > 60, Glucose Level 96, Calcium Level 9.0 Height (Feet): 5 Height (Inches): 5.00 Weight (Pounds): 125 General Appearance: lethargic EENT: normal ENT inspection Neck: normal alignment Cardiovascular: normal peripheral pulses, normal rate, regular rhythm Respiratory/Chest: chest wall non-tender, decreased breath sounds Abdomen: normal bowel sounds, non tender, soft Extremities: normal inspection Edema: no edema noted Arm (L), no edema noted Arm (R), no edema noted Leg (L), no edema noted Leg (R), no edema noted Pedal (L), no edema noted Pedal (R), no edema noted Generalized Neurologic: motor weakness Skin: normal pigmentation, warm/dry Gato Viveros DO May 20, 2018 11:21
[2018-05-20] MEDS: D5NS 1,000 ML IV SCH (11:32)
[2018-05-20 12:00] VITALS: BP 138/60
--- NOTE | 2018-05-20 12:23 | GI Progress Note ---
Assessment/Plan Problems: (1) Anemia ICD Codes: D64.9 - Anemia, unspecified SNOMED: 542475238 (2) Severe protein-calorie malnutrition ICD Codes: E43 - Unspecified severe protein-calorie malnutrition SNOMED: 789045819 (3) GI bleed ICD Codes: K92.2 - Gastrointestinal hemorrhage, unspecified SNOMED: 01588478 (4) Feeding by G-tube ICD Codes: Z93.1 - Gastrostomy status SNOMED: 485554070, 925504262 (5) Respiratory failure, lcmho-my-wtqhrmm ICD Codes: J96.20 - Respiratory failure, defqo-nb-dzpfmpd SNOMED: 05445805 (6) Anemia ICD Codes: D64.9 - Anemia, unspecified SNOMED: 631961972 (7) Edema ICD Codes: R60.9 - Edema, unspecified SNOMED: 492171233, 708074565 (8) Upper GI bleed ICD Codes: K92.2 - Upper gastrointestinal hemorrhage SNOMED: 35482579 (9) Malnutrition ICD Codes: E46 - Unspecified protein-calorie malnutrition SNOMED: 68437317 Status: stable Status Narrative Discussed with Dr. Wilson. Assessment/Plan s/p EGD, see full report. 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 No dilation performed. - esophagitis ppi BID + carafate prn transfusions monitor H&H, prn transfusions bowel regime fu labs okay for DC per GI standpoint The patient was seen and examined at bedside and all new and available data was reviewed in the patients chart. I agree with the above findings, impression and plan. (Patient seen earlier today. Signature stamp does not reflect patient encounter time.). - Vitaliy Wilson MD Subjective Subjective limited Objective Last 24 Hour Vital Signs Date Time Temp Pulse Resp B/P (MAP) Pulse Ox O2 Delivery O2 Flow Rate FiO2 05/20/18 11:28 56 16 40 05/20/18 09:20 65 16 40 05/20/18 08:00 67 05/20/18 08:00 98.2 69 17 141/65 (90) 100 98.2 05/20/18 08:00 Mechanical Ventilator 05/20/18 08:00 40 05/20/18 06:40 67 17 40 05/20/18 04:31 75 17 40 05/20/18 04:00 40 05/20/18 04:00 98.1 82 18 142/89 (106) 99 98.1 05/20/18 04:00 Mechanical Ventilator 05/20/18 04:00 72 05/20/18 02:46 71 16 40 05/20/18 00:36 66 16 40 05/20/18 00:00 40 05/20/18 00:00 Mechanical Ventilator 05/20/18 00:00 98.2 72 24 130/86 (101) 99 98.2 05/20/18 00:00 68 05/19/18 23:15 73 17 40 05/19/18 21:01 73 16 40 05/19/18 20:00 62 05/19/18 20:00 98.1 65 17 113/64 (80) 100 98.1 05/19/18 20:00 Mechanical Ventilator 05/19/18 20:00 40 05/19/18 19:03 64 16 40 05/19/18 17:05 78 18 40 05/19/18 16:00 98.5 64 16 124/74 (91) 95 98.5 05/19/18 16:00 Mechanical Ventilator 05/19/18 15:30 40 05/19/18 15:19 77 16 40 05/19/18 15:12 69 05/19/18 12:45 63 16 30 Intake and Output 05/19/18 05/20/18 19:00 07:00 Intake Total 427.5 ml 1805 ml Output Total 2000 ml 1000 ml Balance -1572.5 ml 805 ml Free Water 100 ml 150 ml IV Total 227.5 ml 955 ml Tube Feeding 100 ml 600 ml Other 100 ml Output Urine Total 2000 ml 1000 ml # Bowel Movements 2 Laboratory Tests Test 05/20/18 04:10 White Blood Count 11.1 K/UL (4.8-10.8) H Red Blood Count 3.83 M/UL (4.70-6.10) L Hemoglobin 10.4 G/DL (14.2-18.0) L Hematocrit 32.3 % (42.0-52.0) L Mean Corpuscular Volume 84 FL (80-99) Mean Corpuscular Hemoglobin 27.1 PG (27.0-31.0) Mean Corpuscular Hemoglobin Concent 32.2 G/DL (32.0-36.0) Red Cell Distribution Width 13.6 % (11.6-14.8) Platelet Count 269 K/UL (150-450) Mean Platelet Volume 8.5 FL (6.5-10.1) Neutrophils (%) (Auto) 70.2 % (45.0-75.0) Lymphocytes (%) (Auto) 15.6 % (20.0-45.0) L Monocytes (%) (Auto) 9.0 % (1.0-10.0) Eosinophils (%) (Auto) 4.5 % (0.0-3.0) H Basophils (%) (Auto) 0.7 % (0.0-2.0) Sodium Level 137 MMOL/L (136-145) Potassium Level 4.3 MMOL/L (3.5-5.1) Chloride Level 105 MMOL/L (98-107) Carbon Dioxide Level 25 MMOL/L (21-32) Anion Gap 7 mmol/L (5-15) Blood Urea Nitrogen 16 mg/dL (7-18) Creatinine 1.0 MG/DL (0.55-1.30) Estimat Glomerular Filtration Rate > 60 mL/min (>60) Glucose Level 96 MG/DL (74-106) Calcium Level 9.0 MG/DL (8.5-10.1) Height (Feet): 5 Height (Inches): 5.00 Weight (Pounds): 125 General Appearance: no apparent distress Cardiovascular: normal rate Respiratory/Chest: normal breath sounds, no respiratory distress Abdominal Exam: normal bowel sounds, non tender, soft, GT site - c/d/i Extremities: non-tender Emanuel Quesada NP May 20, 2018 12:23
[2018-05-20 16:00] VITALS: BP 109/68
--- NOTE | 2018-05-20 18:18 | General Progress Note ---
Assessment/Plan Problem List: (1) Respiratory failure, qcmwj-pd-lzhvkii ICD Codes: J96.20 - Respiratory failure, uhbhr-vt-wnvyejh SNOMED: 65846246 (2) Feeding by G-tube ICD Codes: Z93.1 - Gastrostomy status SNOMED: 157564307, 142861755 (3) GI bleed ICD Codes: K92.2 - Gastrointestinal hemorrhage, unspecified SNOMED: 48738900 (4) Hyperglycemia ICD Codes: R73.9 - Hyperglycemia, unspecified SNOMED: 25199789 (5) Hypothyroidism ICD Codes: E03.9 - Hypothyroidism, unspecified SNOMED: 71784299 Assessment/Plan continue Levemir 6 units bid continue NISS Subjective ROS Limited/Unobtainable: Yes Allergies: Coded Allergies: NO KNOWN DRUG ALLERGIES (Verified Allergy, Unknown, 09/11/16) Subjective events noted Objective Last 24 Hour Vital Signs Date Time Temp Pulse Resp B/P (MAP) Pulse Ox O2 Delivery O2 Flow Rate FiO2 05/20/18 17:09 71 17 40 05/20/18 16:00 99.0 74 16 109/68 (82) 100 99.0 05/20/18 16:00 Mechanical Ventilator 05/20/18 16:00 40 05/20/18 16:00 90 05/20/18 15:25 66 16 40 05/20/18 12:46 57 16 40 05/20/18 12:00 40 05/20/18 12:00 Mechanical Ventilator 05/20/18 12:00 98.5 78 19 138/60 (86) 99 98.5 05/20/18 12:00 62 05/20/18 11:28 56 16 40 05/20/18 09:20 65 16 40 05/20/18 08:00 67 05/20/18 08:00 98.2 69 17 141/65 (90) 100 98.2 05/20/18 08:00 Mechanical Ventilator 05/20/18 08:00 40 05/20/18 06:40 67 17 40 05/20/18 04:31 75 17 40 05/20/18 04:00 40 05/20/18 04:00 98.1 82 18 142/89 (106) 99 98.1 05/20/18 04:00 Mechanical Ventilator 05/20/18 04:00 72 05/20/18 02:46 71 16 40 05/20/18 00:36 66 16 40 05/20/18 00:00 40 05/20/18 00:00 Mechanical Ventilator 05/20/18 00:00 98.2 72 24 130/86 (101) 99 98.2 05/20/18 00:00 68 05/19/18 23:15 73 17 40 05/19/18 21:01 73 16 40 05/19/18 20:00 62 05/19/18 20:00 98.1 65 17 113/64 (80) 100 98.1 05/19/18 20:00 Mechanical Ventilator 05/19/18 20:00 40 05/19/18 19:03 64 16 40 Intake and Output 05/19/18 05/20/18 19:00 07:00 Intake Total 427.5 ml 1805 ml Output Total 2000 ml 1000 ml Balance -1572.5 ml 805 ml Free Water 100 ml 150 ml IV Total 227.5 ml 955 ml Tube Feeding 100 ml 600 ml Other 100 ml Output Urine Total 2000 ml 1000 ml # Bowel Movements 2 Laboratory Tests 05/20/18 04:10: White Blood Count 11.1H, Red Blood Count 3.83L, Hemoglobin 10.4L, Hematocrit 32.3L, Mean Corpuscular Volume 84, Mean Corpuscular Hemoglobin 27.1, Mean Corpuscular Hemoglobin Concent 32.2, Red Cell Distribution Width 13.6, Platelet Count 269, Mean Platelet Volume 8.5, Neutrophils (%) (Auto) 70.2, Lymphocytes (% ) (Auto) 15.6L, Monocytes (%) (Auto) 9.0, Eosinophils (%) (Auto) 4.5H, Basophils (%) (Auto) 0.7, Sodium Level 137, Potassium Level 4.3, Chloride Level 105, Carbon Dioxide Level 25, Anion Gap 7, Blood Urea Nitrogen 16, Creatinine 1.0, Estimat Glomerular Filtration Rate > 60, Glucose Level 96, Calcium Level 9.0 Height (Feet): 5 Height (Inches): 5.00 Weight (Pounds): 125 General Appearance: no apparent distress EENT: other - tracheostomy Neck: normal alignment Cardiovascular: normal peripheral pulses Respiratory/Chest: decreased breath sounds Abdomen: normal bowel sounds Objective Current Medications Medications (Trade) Dose Ordered Sig/Wanda Route PRN Reason Start Time Stop Time Status Last Admin Dose Admin Acetaminophen (Tylenol) 650 mg Q4H PRN ORAL T>100.5 05/13/18 20:30 06/12/18 20:29 Albuterol/ Ipratropium (Albuterol/ Ipratropium) 3 ml Q4H PRN HHN Shortness of Breath 05/18/18 11:00 05/23/18 10:59 Ceftriaxone Sodium 1 gm/ Dextrose 55 ml @ 110 mls/hr Q24H IVPB 05/15/18 21:00 05/20/18 23:59 05/19/18 21:46 Chlorhexidine Gluconate (Jasmin-Hex 2%) 1 applic DAILY@2000 TOPIC 05/15/18 20:00 06/14/18 19:59 05/19/18 21:45 Dextrose (Dextrose 50%) 25 ml STAT PRN IV Hypoglycemia 05/17/18 10:45 06/16/18 10:44 Dextrose (Dextrose 50%) 50 ml STAT PRN IV Hypoglycemia 05/17/18 10:45 06/16/18 10:44 Dextrose/Sodium Chloride 1,000 ml @ 40 mls/hr Q24H IV 05/20/18 10:44 06/19/18 10:43 05/20/18 11:32 Insulin Aspart (NovoLOG) BEFORE MEALS AND HS SUBQ 05/17/18 11:30 06/16/18 11:29 05/20/18 11:34 Insulin Detemir (Levemir) 6 units BID SUBQ 05/17/18 18:00 06/16/18 17:59 05/20/18 09:37 Levothyroxine Sodium (Synthroid) 50 mcg DAILY GT 05/14/18 09:00 06/13/18 08:59 05/20/18 08:04 Lorazepam (Ativan 2mg/ml 1ml) 2 mg Q2H PRN IV AGITATION 05/19/18 10:30 05/26/18 10:29 Morphine Sulfate (Morphine Sulfate) 4 mg Q4H PRN IVP Severe Pain (Pain Scale 7-10) 05/18/18 11:00 05/25/18 10:59 Ondansetron HCl (Zofran) 4 mg Q6H PRN IVP Nausea & Vomiting 05/13/18 20:30 06/12/18 20:29 Pantoprazole (Protonix) 40 mg Q12H IVP 05/14/18 18:00 06/13/18 17:59 05/20/18 05:54 Polyethylene Glycol (Miralax) 17 gm DAILYPRN PRN ORAL Constipation 05/13/18 20:30 06/12/18 20:29 Quetiapine Fumarate (SEROquel) 25 mg Q6H PRN ORAL For Anxiety 05/14/18 11:30 06/13/18 11:29 Sucralfate (Carafate) 1 gm FOUR TIMES A DAY GT 05/13/18 21:00 06/12/18 20:59 05/20/18 14:04 Item Value Date Time Bedside Blood Glucose 109 mg/dl 05/20/18 1630 Bedside Blood Glucose 120 mg/dl 05/20/18 1134 Bedside Blood Glucose 106 mg/dl 05/20/18 0937 Bedside Blood Glucose 123 mg/dl H 05/20/18 0615 Bedside Blood Glucose 103 mg/dl 05/19/18 2100 Albert Christopher MD May 20, 2018 18:18
[2018-05-20 20:00] VITALS: BP 132/57
[2018-05-20] MEDS: Dyna-Hex 2% Top Sol 2oz TOPIC SCH (20:07)
[2018-05-20] MEDS: cefTRIAXone 1 GM in D5W 55 ML IVPB SCH (20:56)
[2018-05-21] VITALS: BP 117/70
[2018-05-21 04:00] VITALS: BP 127/78
[2018-05-21 04:51] LABS: BASOPHILS % (AUTO) 0.7 % (0.0-2.0); EOSINOPHILS % (AUTO) 5.4 % (0.0-3.0); HEMATOCRIT 30.3 % (42.0-52.0); LYMPHOCYTES % (AUTO) 20.3 % (20.0-45.0); MEAN CORPUSCULAR VOLUME 85 FL (80-99); MONOCYTES % (AUTO) 9.1 % (1.0-10.0); NEUTROPHILS % (AUTO) 64.5 % (45.0-75.0); PLATELET COUNT 275 K/UL (150-450); RED BLOOD COUNT 3.58 M/UL (4.70-6.10); RED CELL DISTRIBUTION WIDTH 13.2 % (11.6-14.8); WHITE BLOOD COUNT 9.2 K/UL (4.8-10.8)
[2018-05-21 04:56] LABS: ANION GAP 6 mmol/L (5-15); BLOOD UREA NITROGEN 19 mg/dL (7-18); CALCIUM 9.2 MG/DL (8.5-10.1); CARBON DIOXIDE 27 MMOL/L (21-32); CHLORIDE 103 MMOL/L (98-107); POTASSIUM 4.3 MMOL/L (3.5-5.1); SODIUM 135 MMOL/L (136-145)
[2018-05-21] MEDS: Pantoprazole Inj IVP SCH ×2 (05:53→17:23)
[2018-05-21] MEDS: NovoLOG Insulin Flexpen SUBQ SCH ×3 (06:30→18:00)
--- NOTE | 2018-05-21 06:57 | General Progress Note ---
Assessment/Plan Problem List: (1) Respiratory failure, uerqt-tm-sjlbvwv ICD Codes: J96.20 - Respiratory failure, wqkth-qb-ngvifbx SNOMED: 37983440 (2) Feeding by G-tube ICD Codes: Z93.1 - Gastrostomy status SNOMED: 673343273, 454980204 (3) GI bleed ICD Codes: K92.2 - Gastrointestinal hemorrhage, unspecified SNOMED: 64115339 (4) Hyperglycemia ICD Codes: R73.9 - Hyperglycemia, unspecified SNOMED: 75735045 (5) Hypothyroidism ICD Codes: E03.9 - Hypothyroidism, unspecified SNOMED: 49663909 Assessment/Plan continue Levemir 6 units bid continue TF continue NISS Subjective ROS Limited/Unobtainable: Yes Allergies: Coded Allergies: NO KNOWN DRUG ALLERGIES (Verified Allergy, Unknown, 09/11/16) Subjective events noted glucose values are stable on vent Objective Last 24 Hour Vital Signs Date Time Temp Pulse Resp B/P (MAP) Pulse Ox O2 Delivery O2 Flow Rate FiO2 05/21/18 06:41 64 16 40 05/21/18 05:16 72 16 40 05/21/18 04:00 98.1 72 18 127/78 (94) 100 98.1 05/21/18 04:00 69 05/21/18 04:00 Mechanical Ventilator 05/21/18 04:00 40 05/21/18 02:33 74 16 40 05/21/18 00:38 69 17 40 05/21/18 00:00 Mechanical Ventilator 05/21/18 00:00 98.5 70 18 117/70 (86) 100 98.5 05/21/18 00:00 70 05/21/18 00:00 40 05/20/18 22:56 69 16 40 05/20/18 20:52 73 16 40 05/20/18 20:00 40 05/20/18 20:00 98.2 82 20 132/57 (82) 100 98.2 05/20/18 20:00 72 05/20/18 20:00 Mechanical Ventilator 05/20/18 18:59 70 16 40 05/20/18 17:09 71 17 40 05/20/18 16:00 99.0 74 16 109/68 (82) 100 99.0 05/20/18 16:00 Mechanical Ventilator 9/10/18 16:00 40 05/20/18 16:00 90 05/20/18 15:25 66 16 40 05/20/18 12:46 57 16 40 05/20/18 12:00 40 05/20/18 12:00 Mechanical Ventilator 05/20/18 12:00 98.5 78 19 138/60 (86) 99 98.5 05/20/18 12:00 62 05/20/18 11:28 56 16 40 05/20/18 09:20 65 16 40 05/20/18 08:00 67 05/20/18 08:00 98.2 69 17 141/65 (90) 100 98.2 05/20/18 08:00 Mechanical Ventilator 05/20/18 08:00 40 Intake and Output 05/20/18 05/21/18 19:00 07:00 Intake Total 1000 ml 1095 ml Output Total 1100 ml 900 ml Balance -100 ml 195 ml Free Water 200 ml IV Total 300 ml 495 ml Tube Feeding 500 ml 600 ml Output Urine Total 1100 ml 900 ml # Bowel Movements 4 Laboratory Tests 05/21/18 03:25: White Blood Count 9.2, Red Blood Count 3.58L, Hemoglobin 10.0L, Hematocrit 30.3L , Mean Corpuscular Volume 85, Mean Corpuscular Hemoglobin 27.9, Mean Corpuscular Hemoglobin Concent 32.9, Red Cell Distribution Width 13.2, Platelet Count 275, Mean Platelet Volume 8.0, Neutrophils (%) (Auto) 64.5, Lymphocytes (% ) (Auto) 20.3, Monocytes (%) (Auto) 9.1, Eosinophils (%) (Auto) 5.4H, Basophils (%) (Auto) 0.7, Sodium Level 135L, Potassium Level 4.3, Chloride Level 103, Carbon Dioxide Level 27, Anion Gap 6, Blood Urea Nitrogen 19H, Creatinine 1.0, Estimat Glomerular Filtration Rate > 60, Glucose Level 94, Calcium Level 9.2 Height (Feet): 5 Height (Inches): 5.00 Weight (Pounds): 125 General Appearance: lethargic Neck: other - tracheostomy Cardiovascular: normal rate Respiratory/Chest: decreased breath sounds Abdomen: abnormal bowel sounds, other - PEG Edema: 1+ Arm (L), 1+ Arm (R), 1+ Leg (L), 1+ Leg (R), 1+ Pedal (L), 1+ Pedal ( R), 1+ Generalized Objective Current Medications Medications (Trade) Dose Ordered Sig/Wanda Route PRN Reason Start Time Stop Time Status Last Admin Dose Admin Acetaminophen (Tylenol) 650 mg Q4H PRN ORAL T>100.5 05/13/18 20:30 06/12/18 20:29 Albuterol/ Ipratropium (Albuterol/ Ipratropium) 3 ml Q4H PRN HHN Shortness of Breath 05/18/18 11:00 05/23/18 10:59 Chlorhexidine Gluconate (Jasmin-Hex 2%) 1 applic DAILY@2000 TOPIC 05/15/18 20:00 06/14/18 19:59 05/20/18 20:07 Dextrose (Dextrose 50%) 25 ml STAT PRN IV Hypoglycemia 05/17/18 10:45 06/16/18 10:44 Dextrose (Dextrose 50%) 50 ml STAT PRN IV Hypoglycemia 05/17/18 10:45 06/16/18 10:44 Dextrose/Sodium Chloride 1,000 ml @ 40 mls/hr Q24H IV 05/20/18 10:44 06/19/18 10:43 05/20/18 11:32 Insulin Aspart (NovoLOG) Q6HR SUBQ 05/21/18 12:00 06/16/18 11:29 Insulin Detemir (Levemir) 6 units BID SUBQ 05/17/18 18:00 06/16/18 17:59 05/20/18 18:24 Levothyroxine Sodium (Synthroid) 50 mcg DAILY GT 05/14/18 09:00 06/13/18 08:59 05/20/18 08:04 Lorazepam (Ativan 2mg/ml 1ml) 2 mg Q2H PRN IV AGITATION 05/19/18 10:30 05/26/18 10:29 Morphine Sulfate (Morphine Sulfate) 4 mg Q4H PRN IVP Severe Pain (Pain Scale 7-10) 05/18/18 11:00 05/25/18 10:59 Ondansetron HCl (Zofran) 4 mg Q6H PRN IVP Nausea & Vomiting 05/13/18 20:30 06/12/18 20:29 Pantoprazole (Protonix) 40 mg Q12H IVP 05/14/18 18:00 06/13/18 17:59 05/21/18 05:53 Polyethylene Glycol (Miralax) 17 gm DAILYPRN PRN ORAL Constipation 05/13/18 20:30 06/12/18 20:29 Quetiapine Fumarate (SEROquel) 25 mg Q6H PRN ORAL For Anxiety 05/14/18 11:30 06/13/18 11:29 Sucralfate (Carafate) 1 gm FOUR TIMES A DAY GT 05/13/18 21:00 06/12/18 20:59 05/20/18 20:56 Item Value Date Time Bedside Blood Glucose 108 mg/dl 05/21/18 0630 Bedside Blood Glucose 118 mg/dl 05/20/18 2101 Bedside Blood Glucose 102 mg/dl 05/20/18 1824 Bedside Blood Glucose 120 mg/dl 05/20/18 1134 Bedside Blood Glucose 106 mg/dl 05/20/18 0937 Bedside Blood Glucose 123 mg/dl H 05/20/18 0615 Albert Christopher MD May 21, 2018 06:57
--- NOTE | 2018-05-21 07:58 | Infectious Diseases Prog Note ---
Assessment/Plan Assessment/Plan A: Sepsis PNA, vs UTI vs GI Blood Cx positive - Likely Contaminant 05/13 BCx Staph epi - Cx Pend 05/15 Cat tip Cx - Staph epi 05/19 BCx - NGTD Leukocytosis WBCs 40K on admit Improving Fever - Resolved UGIB DM Asthma GERD Hx CVA/TIA Dementia Hx Seizures P: Monitor off antibiotics 05/20/18 SP Ceftriaxone #6 / SP Vancomycin #4 05/13 SP Zosyn x1 Monitor CBC and Temps - Vent support We will continue to follow the patient with you. Subjective Allergies: Coded Allergies: NO KNOWN DRUG ALLERGIES (Verified Allergy, Unknown, 09/11/16) Subjective No acute events Afebrile Objective Vital Signs Last 24 Hour Vital Signs Date Time Temp Pulse Resp B/P (MAP) Pulse Ox O2 Delivery O2 Flow Rate FiO2 05/21/18 06:41 64 16 40 05/21/18 05:16 72 16 40 05/21/18 04:00 98.1 72 18 127/78 (94) 100 98.1 05/21/18 04:00 69 05/21/18 04:00 Mechanical Ventilator 05/21/18 04:00 40 05/21/18 02:33 74 16 40 05/21/18 00:38 69 17 40 05/21/18 00:00 Mechanical Ventilator 05/21/18 00:00 98.5 70 18 117/70 (86) 100 98.5 05/21/18 00:00 70 05/21/18 00:00 40 05/20/18 22:56 69 16 40 05/20/18 20:52 73 16 40 05/20/18 20:00 40 05/20/18 20:00 98.2 82 20 132/57 (82) 100 98.2 05/20/18 20:00 72 05/20/18 20:00 Mechanical Ventilator 05/20/18 18:59 70 16 40 05/20/18 17:09 71 17 40 05/20/18 16:00 99.0 74 16 109/68 (82) 100 99.0 05/20/18 16:00 Mechanical Ventilator 05/20/18 16:00 40 05/20/18 16:00 90 05/20/18 15:25 66 16 40 05/20/18 12:46 57 16 40 9/10/18 12:00 40 05/20/18 12:00 Mechanical Ventilator 05/20/18 12:00 98.5 78 19 138/60 (86) 99 98.5 05/20/18 12:00 62 05/20/18 11:28 56 16 40 05/20/18 09:20 65 16 40 05/20/18 08:00 67 05/20/18 08:00 98.2 69 17 141/65 (90) 100 98.2 05/20/18 08:00 Mechanical Ventilator 05/20/18 08:00 40 Height (Feet): 5 Height (Inches): 5.00 Weight (Pounds): 125 Objective General Appearance: NAD - nonverbal, On vent HEENT: NCAT, MMM, No scleral icterus, Tracheotomy, Respiratory: CTAB, no Wheezing Cardiovascular: RRR, S1, S2 Gastrointestinal: Soft, NT, ND, + BS, Gtube No Erythema, or purulent drainage Microbiology Date/Time Source Procedure Growth Status 05/18/18 12:10 Blood Blood Culture - Preliminary NO GROWTH AFTER 48 HOURS Resulted 05/18/18 12:00 Blood Blood Culture - Preliminary NO GROWTH AFTER 48 HOURS Resulted Laboratory Tests Test 05/21/18 03:25 White Blood Count 9.2 K/UL (4.8-10.8) Red Blood Count 3.58 M/UL (4.70-6.10) L Hemoglobin 10.0 G/DL (14.2-18.0) L Hematocrit 30.3 % (42.0-52.0) L Mean Corpuscular Volume 85 FL (80-99) Mean Corpuscular Hemoglobin 27.9 PG (27.0-31.0) Mean Corpuscular Hemoglobin Concent 32.9 G/DL (32.0-36.0) Red Cell Distribution Width 13.2 % (11.6-14.8) Platelet Count 275 K/UL (150-450) Mean Platelet Volume 8.0 FL (6.5-10.1) Neutrophils (%) (Auto) 64.5 % (45.0-75.0) Lymphocytes (%) (Auto) 20.3 % (20.0-45.0) Monocytes (%) (Auto) 9.1 % (1.0-10.0) Eosinophils (%) (Auto) 5.4 % (0.0-3.0) H Basophils (%) (Auto) 0.7 % (0.0-2.0) Sodium Level 135 MMOL/L (136-145) L Potassium Level 4.3 MMOL/L (3.5-5.1) Chloride Level 103 MMOL/L (98-107) Carbon Dioxide Level 27 MMOL/L (21-32) Anion Gap 6 mmol/L (5-15) Blood Urea Nitrogen 19 mg/dL (7-18) H Creatinine 1.0 MG/DL (0.55-1.30) Estimat Glomerular Filtration Rate > 60 mL/min (>60) Glucose Level 94 MG/DL (74-106) Calcium Level 9.2 MG/DL (8.5-10.1) Current Medications Medications (Trade) Dose Ordered Sig/Wanda Route PRN Reason Start Time Stop Time Status Last Admin Dose Admin Acetaminophen (Tylenol) 650 mg Q4H PRN ORAL T>100.5 05/13/18 20:30 06/12/18 20:29 Albuterol/ Ipratropium (Albuterol/ Ipratropium) 3 ml Q4H PRN HHN Shortness of Breath 05/18/18 11:00 05/23/18 10:59 Chlorhexidine Gluconate (Jasmin-Hex 2%) 1 applic DAILY@2000 TOPIC 05/15/18 20:00 06/14/18 19:59 05/20/18 20:07 Dextrose (Dextrose 50%) 25 ml STAT PRN IV Hypoglycemia 05/17/18 10:45 06/16/18 10:44 Dextrose (Dextrose 50%) 50 ml STAT PRN IV Hypoglycemia 05/17/18 10:45 06/16/18 10:44 Dextrose/Sodium Chloride 1,000 ml @ 40 mls/hr Q24H IV 05/20/18 10:44 06/19/18 10:43 05/20/18 11:32 Insulin Aspart (NovoLOG) Q6HR SUBQ 05/21/18 12:00 06/16/18 11:29 Insulin Detemir (Levemir) 6 units BID SUBQ 05/17/18 18:00 06/16/18 17:59 05/20/18 18:24 Levothyroxine Sodium (Synthroid) 50 mcg DAILY GT 05/14/18 09:00 06/13/18 08:59 05/20/18 08:04 Lorazepam (Ativan 2mg/ml 1ml) 2 mg Q2H PRN IV AGITATION 05/19/18 10:30 05/26/18 10:29 Morphine Sulfate (Morphine Sulfate) 4 mg Q4H PRN IVP Severe Pain (Pain Scale 7-10) 05/18/18 11:00 05/25/18 10:59 Ondansetron HCl (Zofran) 4 mg Q6H PRN IVP Nausea & Vomiting 05/13/18 20:30 06/12/18 20:29 Pantoprazole (Protonix) 40 mg Q12H IVP 05/14/18 18:00 06/13/18 17:59 05/21/18 05:53 Polyethylene Glycol (Miralax) 17 gm DAILYPRN PRN ORAL Constipation 05/13/18 20:30 06/12/18 20:29 Quetiapine Fumarate (SEROquel) 25 mg Q6H PRN ORAL For Anxiety 05/14/18 11:30 06/13/18 11:29 Sucralfate (Carafate) 1 gm FOUR TIMES A DAY GT 05/13/18 21:00 06/12/18 20:59 05/20/18 20:56 John Fiore MD May 21, 2018 07:58
[2018-05-21 08:00] VITALS: BP 136/68
[2018-05-21] MEDS: Sucralfate 1gm tab GT SCH ×3 (08:27→17:23)
[2018-05-21] MEDS: Levemir Flexpen SUBQ SCH ×2 (08:39→17:27)
--- NOTE | 2018-05-21 09:26 | Pulmonolgy Critical Care Note ---
Critical Care - Asmt/Plan Problems: (1) Respiratory failure, [id number]-hhbtlfr (2) GI bleed (3) Sepsis (4) Anemia (5) Feeding by G-tube (6) Severe protein-calorie malnutrition (7) Psychosis (8) Dementia Respiratory: monitor respiratory rate, adjust FIO2, CXR Cardiac: continue to monitor HR/BP Renal: F/U I&O Infectious Disease: check cultures Gastrointestinal: continue feedings/current rate Endocrine: monitor blood sugar Hematologic: monitor H/H, transfuse if hgb<8.5 Neurologic: PRN Ativan, PRN Morphine, keep patient comfortable Affect: PRN ativan Time Spent (Minutes): 40 Notes Reviewed: country manager, cardio, 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 with: nurses, consultants, returned case 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 and 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 - Objective Last 24 Hour Vital Signs Date Time Temp Pulse Resp B/P (MAP) Pulse Ox O2 Delivery O2 Flow Rate FiO2 05/21/18 08:00 70 05/21/18 08:00 98.0 66 16 136/68 (90) 100 98.0 05/21/18 08:00 40 05/21/18 08:00 Mechanical Ventilator 05/21/18 06:41 64 16 40 05/21/18 05:16 72 16 40 05/21/18 04:00 98.1 72 18 127/78 (94) 100 98.1 05/21/18 04:00 69 05/21/18 04:00 Mechanical Ventilator 05/21/18 04:00 40 05/21/18 02:33 74 16 40 05/21/18 00:38 69 17 40 05/21/18 00:00 Mechanical Ventilator 05/21/18 00:00 98.5 70 18 117/70 (86) 100 98.5 05/21/18 00:00 70 05/21/18 00:00 40 05/20/18 22:56 69 16 40 05/20/18 20:52 73 16 40 05/20/18 20:00 40 05/20/18 20:00 98.2 82 20 132/57 (82) 100 98.2 05/20/18 20:00 72 05/20/18 20:00 Mechanical Ventilator 05/20/18 18:59 70 16 40 05/20/18 17:09 71 17 40 05/20/18 16:00 99.0 74 16 109/68 (82) 100 99.0 9/10/18 16:00 Mechanical Ventilator 05/20/18 16:00 40 05/20/18 16:00 90 05/20/18 15:25 66 16 40 05/20/18 12:46 57 16 40 05/20/18 12:00 40 05/20/18 12:00 Mechanical Ventilator 05/20/18 12:00 98.5 78 19 138/60 (86) 99 98.5 05/20/18 12:00 62 05/20/18 11:28 56 16 40 Status: awake Condition: critical HEENT: atraumatic Neck: full ROM Heart: HR/BP stable, regular Abdomen: non-tender, active bowel sounds Extremities: no C/C/E, edema Micro: Microbiology Date/Time Source Procedure Growth Status 05/18/18 12:10 Blood Blood Culture - Preliminary NO GROWTH AFTER 48 HOURS Resulted 05/18/18 12:00 Blood Blood Culture - Preliminary NO GROWTH AFTER 48 HOURS Resulted Accucheck: 106 Critical Care - Subjective ROS Limited/Unobtainable: Yes Condition: critical EKG Rhythm: Sinus Rhythm FI02: 40 Vent Support Breath Rate: 16 Vent Support Mode: AC Vent Tidal Volume: 600 Sputum Amount: Small PEEP: 5.0 PIP: 21 Tube Feeding Amount: 0 I&O: Intake and Output 05/20/18 05/21/18 19:00 07:00 Intake Total 1000 ml 1185 ml Output Total 1100 ml 900 ml Balance -100 ml 285 ml Free Water 200 ml IV Total 300 ml 535 ml Tube Feeding 500 ml 650 ml Output Urine Total 1100 ml 900 ml # Bowel Movements 4 Labs: Laboratory Tests Test 05/21/18 03:25 White Blood Count 9.2 K/UL (4.8-10.8) Red Blood Count 3.58 M/UL (4.70-6.10) L Hemoglobin 10.0 G/DL (14.2-18.0) L Hematocrit 30.3 % (42.0-52.0) L Mean Corpuscular Volume 85 FL (80-99) Mean Corpuscular Hemoglobin 27.9 PG (27.0-31.0) Mean Corpuscular Hemoglobin Concent 32.9 G/DL (32.0-36.0) Red Cell Distribution Width 13.2 % (11.6-14.8) Platelet Count 275 K/UL (150-450) Mean Platelet Volume 8.0 FL (6.5-10.1) Neutrophils (%) (Auto) 64.5 % (45.0-75.0) Lymphocytes (%) (Auto) 20.3 % (20.0-45.0) Monocytes (%) (Auto) 9.1 % (1.0-10.0) Eosinophils (%) (Auto) 5.4 % (0.0-3.0) H Basophils (%) (Auto) 0.7 % (0.0-2.0) Sodium Level 135 MMOL/L (136-145) L Potassium Level 4.3 MMOL/L (3.5-5.1) Chloride Level 103 MMOL/L (98-107) Carbon Dioxide Level 27 MMOL/L (21-32) Anion Gap 6 mmol/L (5-15) Blood Urea Nitrogen 19 mg/dL (7-18) H Creatinine 1.0 MG/DL (0.55-1.30) Estimat Glomerular Filtration Rate > 60 mL/min (>60) Glucose Level 94 MG/DL (74-106) Calcium Level 9.2 MG/DL (8.5-10.1) Huma Keating MD May 21, 2018 09:26
[2018-05-21] MEDS: D5NS 1,000 ML IV SCH (10:43)
[2018-05-21 12:00] VITALS: BP 157/80
--- NOTE | 2018-05-21 14:59 | GI Progress Note ---
Assessment/Plan Problems: (1) Anemia ICD Codes: D64.9 - Anemia, unspecified SNOMED: 197267841 (2) Severe protein-calorie malnutrition ICD Codes: E43 - Unspecified severe protein-calorie malnutrition SNOMED: 113040100 (3) GI bleed ICD Codes: K92.2 - Gastrointestinal hemorrhage, unspecified SNOMED: 32570930 (4) Feeding by G-tube ICD Codes: Z93.1 - Gastrostomy status SNOMED: 643751734, 522322688 (5) Respiratory failure, irepj-ua-jwuyhix ICD Codes: J96.20 - Respiratory failure, [id number] SNOMED: 33949555 (6) Anemia ICD Codes: D64.9 - Anemia, unspecified SNOMED: 677940393 (7) Edema ICD Codes: R60.9 - Edema, unspecified SNOMED: 074063597, 167440664 (8) Upper GI bleed ICD Codes: K92.2 - Upper gastrointestinal hemorrhage SNOMED: 81610627 (9) Malnutrition ICD Codes: E46 - Unspecified protein-calorie malnutrition SNOMED: 14365857 Status: stable Status Narrative Discussed with Dr. Wilson. Assessment/Plan s/p EGD, see full report. 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 No dilation performed. - esophagitis ppi BID + carafate prn transfusions monitor H&H, prn transfusions bowel regime fu labs okay for DC per GI standpoint The patient was seen and examined at bedside and all new and available data was reviewed in the patients chart. I agree with the above findings, impression and plan. (Patient seen earlier today. Signature stamp does not reflect patient encounter time.). - Vitaliy Wilson MD Subjective Subjective limited Objective Last 24 Hour Vital Signs Date Time Temp Pulse Resp B/P (MAP) Pulse Ox O2 Delivery O2 Flow Rate FiO2 05/21/18 12:44 74 16 40 05/21/18 12:00 Mechanical Ventilator 05/21/18 12:00 60 05/21/18 12:00 98.2 88 26 157/80 (105) 100 98.2 05/21/18 12:00 40 05/21/18 11:06 69 16 40 05/21/18 09:00 63 16 40 05/21/18 08:00 70 05/21/18 08:00 98.0 66 16 136/68 (90) 100 98.0 05/21/18 08:00 40 05/21/18 08:00 Mechanical Ventilator 05/21/18 06:41 64 16 40 05/21/18 05:16 72 16 40 05/21/18 04:00 98.1 72 18 127/78 (94) 100 98.1 05/21/18 04:00 69 05/21/18 04:00 Mechanical Ventilator 05/21/18 04:00 40 05/21/18 02:33 74 16 40 05/21/18 00:38 69 17 40 05/21/18 00:00 Mechanical Ventilator 05/21/18 00:00 98.5 70 18 117/70 (86) 100 98.5 05/21/18 00:00 70 05/21/18 00:00 40 05/20/18 22:56 69 16 40 05/20/18 20:52 73 16 40 05/20/18 20:00 40 05/20/18 20:00 98.2 82 20 132/57 (82) 100 98.2 05/20/18 20:00 72 05/20/18 20:00 Mechanical Ventilator 05/20/18 18:59 70 16 40 05/20/18 17:09 71 17 40 05/20/18 16:00 99.0 74 16 109/68 (82) 100 99.0 05/20/18 16:00 Mechanical Ventilator 05/20/18 16:00 40 05/20/18 16:00 90 05/20/18 15:25 66 16 40 Intake and Output 05/20/18 05/21/18 19:00 07:00 Intake Total 1000 ml 1185 ml Output Total 1100 ml 900 ml Balance -100 ml 285 ml Free Water 200 ml IV Total 300 ml 535 ml Tube Feeding 500 ml 650 ml Output Urine Total 1100 ml 900 ml # Bowel Movements 4 Laboratory Tests Test 05/21/18 03:25 White Blood Count 9.2 K/UL (4.8-10.8) Red Blood Count 3.58 M/UL (4.70-6.10) L Hemoglobin 10.0 G/DL (14.2-18.0) L Hematocrit 30.3 % (42.0-52.0) L Mean Corpuscular Volume 85 FL (80-99) Mean Corpuscular Hemoglobin 27.9 PG (27.0-31.0) Mean Corpuscular Hemoglobin Concent 32.9 G/DL (32.0-36.0) Red Cell Distribution Width 13.2 % (11.6-14.8) Platelet Count 275 K/UL (150-450) Mean Platelet Volume 8.0 FL (6.5-10.1) Neutrophils (%) (Auto) 64.5 % (45.0-75.0) Lymphocytes (%) (Auto) 20.3 % (20.0-45.0) Monocytes (%) (Auto) 9.1 % (1.0-10.0) Eosinophils (%) (Auto) 5.4 % (0.0-3.0) H Basophils (%) (Auto) 0.7 % (0.0-2.0) Sodium Level 135 MMOL/L (136-145) L Potassium Level 4.3 MMOL/L (3.5-5.1) Chloride Level 103 MMOL/L (98-107) Carbon Dioxide Level 27 MMOL/L (21-32) Anion Gap 6 mmol/L (5-15) Blood Urea Nitrogen 19 mg/dL (7-18) H Creatinine 1.0 MG/DL (0.55-1.30) Estimat Glomerular Filtration Rate > 60 mL/min (>60) Glucose Level 94 MG/DL (74-106) Calcium Level 9.2 MG/DL (8.5-10.1) Height (Feet): 5 Height (Inches): 5.00 Weight (Pounds): 125 General Appearance: alert Cardiovascular: normal rate Respiratory/Chest: normal breath sounds, no respiratory distress Abdominal Exam: site - c/d/i Esperanza QuesadahSaskia ANDRE May 21, 2018 14:59
--- NOTE | 2018-05-21 15:03 | General Progress Note ---
Assessment/Plan Problem List: (1) Sepsis ICD Codes: A41.9 - Sepsis, unspecified organism SNOMED: 36678361 Qualifiers: Qualified Codes: A41.9 - Sepsis, unspecified organism (2) Tracheostomy dependence ICD Codes: Z93.0 - Tracheostomy status SNOMED: 214568647, 286502472 (3) Anemia ICD Codes: D64.9 - Anemia, unspecified SNOMED: 689674001 (4) Severe protein-calorie malnutrition ICD Codes: E43 - Unspecified severe protein-calorie malnutrition SNOMED: 430776776 (5) GI bleed ICD Codes: K92.2 - Gastrointestinal hemorrhage, unspecified SNOMED: 19813563 (6) Respiratory failure, swvbl-em-ybzduid ICD Codes: J96.20 - Respiratory failure, opxwg-xi-acpszis SNOMED: 12973984 (7) Diabetes ICD Codes: E11.9 - Type 2 diabetes mellitus without complications SNOMED: 52372750 (8) Gastritis ICD Codes: K29.70 - Gastritis SNOMED: 0894695 (9) HTN (hypertension) ICD Codes: I10 - HTN (hypertension) SNOMED: 42748454 Status: stable, progressing Assessment/Plan vent abx gi f/u dc if clear Subjective Constitutional: Reports: weakness Allergies: Coded Allergies: NO KNOWN DRUG ALLERGIES (Verified Allergy, Unknown, 09/11/16) All Systems: reviewed and negative except above Subjective trach vent altered Objective Last 24 Hour Vital Signs Date Time Temp Pulse Resp B/P (MAP) Pulse Ox O2 Delivery O2 Flow Rate FiO2 05/21/18 12:44 74 16 40 05/21/18 12:00 Mechanical Ventilator 05/21/18 12:00 60 05/21/18 12:00 98.2 88 26 157/80 (105) 100 98.2 05/21/18 12:00 40 05/21/18 11:06 69 16 40 05/21/18 09:00 63 16 40 05/21/18 08:00 70 05/21/18 08:00 98.0 66 16 136/68 (90) 100 98.0 05/21/18 08:00 40 05/21/18 08:00 Mechanical Ventilator 05/21/18 06:41 64 16 40 05/21/18 05:16 72 16 40 05/21/18 04:00 98.1 72 18 127/78 (94) 100 98.1 05/21/18 04:00 69 05/21/18 04:00 Mechanical Ventilator 05/21/18 04:00 40 05/21/18 02:33 74 16 40 05/21/18 00:38 69 17 40 05/21/18 00:00 Mechanical Ventilator 05/21/18 00:00 98.5 70 18 117/70 (86) 100 98.5 05/21/18 00:00 70 05/21/18 00:00 40 05/20/18 22:56 69 16 40 05/20/18 20:52 73 16 40 05/20/18 20:00 40 05/20/18 20:00 98.2 82 20 132/57 (82) 100 98.2 05/20/18 20:00 72 05/20/18 20:00 Mechanical Ventilator 05/20/18 18:59 70 16 40 05/20/18 17:09 71 17 40 05/20/18 16:00 99.0 74 16 109/68 (82) 100 99.0 05/20/18 16:00 Mechanical Ventilator 05/20/18 16:00 40 05/20/18 16:00 90 05/20/18 15:25 66 16 40 Intake and Output 05/20/18 05/21/18 19:00 07:00 Intake Total 1000 ml 1185 ml Output Total 1100 ml 900 ml Balance -100 ml 285 ml Free Water 200 ml IV Total 300 ml 535 ml Tube Feeding 500 ml 650 ml Output Urine Total 1100 ml 900 ml # Bowel Movements 4 Laboratory Tests 05/21/18 03:25: White Blood Count 9.2, Red Blood Count 3.58L, Hemoglobin 10.0L, Hematocrit 30.3L , Mean Corpuscular Volume 85, Mean Corpuscular Hemoglobin 27.9, Mean Corpuscular Hemoglobin Concent 32.9, Red Cell Distribution Width 13.2, Platelet Count 275, Mean Platelet Volume 8.0, Neutrophils (%) (Auto) 64.5, Lymphocytes (% ) (Auto) 20.3, Monocytes (%) (Auto) 9.1, Eosinophils (%) (Auto) 5.4H, Basophils (%) (Auto) 0.7, Sodium Level 135L, Potassium Level 4.3, Chloride Level 103, Carbon Dioxide Level 27, Anion Gap 6, Blood Urea Nitrogen 19H, Creatinine 1.0, Estimat Glomerular Filtration Rate > 60, Glucose Level 94, Calcium Level 9.2 Height (Feet): 5 Height (Inches): 5.00 Weight (Pounds): 125 General Appearance: lethargic EENT: normal ENT inspection Neck: normal alignment Cardiovascular: normal peripheral pulses, normal rate, regular rhythm Respiratory/Chest: chest wall non-tender, lungs clear, normal breath sounds Abdomen: normal bowel sounds, non tender, soft Extremities: normal inspection Edema: no edema noted Arm (L), no edema noted Arm (R), no edema noted Leg (L), no edema noted Leg (R), no edema noted Pedal (L), no edema noted Pedal (R), no edema noted Generalized Neurologic: motor weakness Skin: normal pigmentation, warm/dry Gato Viveros DO May 21, 2018 15:03
[2018-05-21 16:00] VITALS: BP 143/87
--- NOTE | 2018-05-22 15:13 | Discharge Summary ---
Discharge Summary Discharge Summary _ DATE OF ADMISSION: 05/13/2018 DATE OF DISCHARGE: 05/21/2018 REASON FOR ADMISSION: 67 years old male with past medical history of chronic respiratory failure, ventilator dependent, tracheostomy status, diabetes mellitus, COPD, GERD, CVA, advanced dementia, seizure disorder, GI bleeding/.severe esophagitis, was brought from the subacute facility for evaluation due to coffee-ground emesis and fever. Upon evaluation in emergency room patient was found afebrile but tachycardic and hypotensive. WBC 40.1. Hemoglobin 9.9 hematocrit 29.6. Sodium 133. BUN 49. Creatinine 1.4. Glucose 125. Lactic acid 3.0. Troponin negative. Urinalysis with evidence of UTI. Chest x-ray showed possible right lower lobe infiltrate. EKG revealed sinus tachycardia, no acute ischemic changes. Patient admitted with diagnoses of upper GI bleeding ,sepsis, UTI, possible pneumonia, acute and chronic respiratory failure ,respiratory failure- acute and chronic. CONSULTANTS: pulmonary Dr. Keating ID specialist Dr. Daniels GI specialist Dr. Wilson psychiatrist [employer]eles[employer] Consultant Dr. Christopher [facility]: Patient admitted to [facility]. Ventilator support and tracheostomy care provided. Pulmonary toilet provided. Baseline ABG was stable on current settings. Chest x-ray revealed evidence of atelectasis but no evidence of pneumonia. Patient was suctioned as needed. Patient was on antibiotics. Infectious disease specialist closely followed. Urine culture revealed Providencia. Blood culture 2 out of 4 revealed Staphylococcus coagulase-negative. Fever and leukocytosis resolved. Catheter tip culture positive for Staphylococcus coagulase-negative. Central line discontinued. PICC line placed. Follow-up blood culture preliminary negative , likely initial positive blood culture were contaminant as per infectious disease specialist remark. GI specialist closely followed. 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 No dilatation was performed. Tube feeding started via G-tube with strict aspiration / reflux precautions. Patient was able to tolerate feeding. Patient was started on PPI twice a day along with Carafate. No further episodes of GI bleeding. Hemoglobin and hematocrit were closely monitored with goal to keep hemoglobin above 7. Patient undergone transfusion of 2 units of packed red blood cells. Anemia workup was consistent with anemia of chronic disease. Prior to discharge hemoglobin 10, hematocrit 30.3. Venous duplex bilateral lower extremity was negative for acute DVT. Bowel regimen instituted. Supportive care provided. Pain management was addressed as needed. Psychiatrist seen and evaluated patient and concluded that patient lacks the capacity to make an informed decision . Pipe Turner recommendations implemented in plan of care. Patient clinically stabilized: leukocytosis resolved, hemoglobin and hematocrit stable ,no further episodes of upper GI bleeding, patient was able to tolerate feeding. Patient was discharged to subacute residential facility for continuation of care. FINAL DIAGNOSES: Sepsis Urinary tract infection with Providencia Possibly infected central line, status post removal Upper GI bleeding -resolved Acute on chronic respiratory failure Ventilator dependent respiratory failure with tracheostomy status Anemia COPD/asthma History of CVA Seizure disorder Dementia Severe protein calorie malnutrition Encephalopathy ,secondary to general medical condition Status post upper endoscopy Severe showed fracture at the GE junction DISCHARGE MEDICATIONS: List of medication was sent accepting facility DISCHARGE INSTRUCTIONS: Patient was discharged to the residential facility. Follow up with medical doctor at the facility. Amina Galdamez NP May 22, 2018 15:13
== END 2018-05-21 19:15 | DRG 870 ==
LOC: EDBD 19:03 → EMR 19:43 → 2W 19:44 → EDBEDREQ 23:06
PROC: 05HM33Z Insertion of Infusion Device into Right Internal Jugular Vein, Percutaneous Approach (ICD-10-PCS; principal; 2018-05-13)
PROC: 06HM33Z Insertion of Infusion Device into Right Femoral Vein, Percutaneous Approach (ICD-10-PCS; principal; 2018-05-13)
PROC: 5A1955Z Respiratory Ventilation, Greater than 96 Consecutive Hours (ICD-10-PCS; principal; 2018-05-13)
PROC: 02HV33Z Insertion of Infusion Device into Superior Vena Cava, Percutaneous Approach (ICD-10-PCS; 2018-05-15)
PROC: 0DJ08ZZ Inspection of Upper Intestinal Tract, Via Natural or Artificial Opening Endoscopic (ICD-10-PCS; 2018-05-15)
PROC: B548ZZA Ultrasonography of Superior Vena Cava, Guidance (ICD-10-PCS; 2018-05-15)
DX: A41.9 Sepsis, unspecified organism (principal); T80.211A Bloodstream infection due to central venous catheter, initial encounter; E43 Unspecified severe protein-calorie malnutrition; J96.20 Acute and chronic respiratory failure, unspecified whether with hypoxia or hypercapnia; G93.40 Encephalopathy, unspecified; K92.2 Gastrointestinal hemorrhage, unspecified; N39.0 Urinary tract infection, site not specified; Z99.11 Dependence on respirator [ventilator] status; Z68.20 Body mass index [BMI] 20.0-20.9, adult; I10 Essential (primary) hypertension; F03.90 Unspecified dementia, unspecified severity, without behavioral disturbance, psychotic disturbance, mood disturbance, and anxiety; Z93.0 Tracheostomy status; Z93.1 Gastrostomy status; E11.9 Type 2 diabetes mellitus without complications; Z86.73 Personal history of transient ischemic attack (TIA), and cerebral infarction without residual deficits; J44.9 Chronic obstructive pulmonary disease, unspecified; F32.9 Major depressive disorder, single episode, unspecified; K20.9 Esophagitis, unspecified; K29.70 Gastritis, unspecified, without bleeding; K22.2 Esophageal obstruction; E11.65 Type 2 diabetes mellitus with hyperglycemia; E03.9 Hypothyroidism, unspecified
CPT/HCPCS: 36415; 36569; 36600; 71045; 76937; 80048; 80053; 80069; 80202; 81003; 82550; 82553; 82803; 82962; 83540; 83550; 83605; 83735; 83880; 84100; 84484; 85007; 85025; 85610; 85730; 86850; 86900; 86901; 86920; 87040; 87070; 87081; 87086; 87181; 93005; 93970; 94002; 94003; 94150; 94664; 96361; 96374; 96375; 99285; J1815; J2405; S5561

== ENCOUNTER 2018-07-31 22:41 | Inpatient (IN) | payer MEDICARE ==
[~2018-07-31] VITALS: Ht 172.7 cm; Wt 62.2 kg
[~2018-07-31 22:41] MED LIST changes: +OMEPRAZOLE20 M3 ORAL
[2018-07-31 23:37] LABS: BASOPHILS % (AUTO) 0.5 % (0.0-2.0); EOSINOPHILS % (AUTO) 1.4 % (0.0-3.0); HEMATOCRIT 28.3 % (42.0-52.0); HEMOGLOBIN 9.3 G/DL (14.2-18.0); LYMPHOCYTES % (AUTO) 15.8 % (20.0-45.0); MEAN CORPUSCULAR VOLUME 81 FL (80-99); MONOCYTES % (AUTO) 9.1 % (1.0-10.0); NEUTROPHILS % (AUTO) 73.2 % (45.0-75.0); PLATELET COUNT 290 K/UL (150-450); RED BLOOD COUNT 3.48 M/UL (4.70-6.10)
[2018-07-31 23:48] LABS: ANION GAP 12 mmol/L (5-15); BLOOD UREA NITROGEN 40 mg/dL (7-18); CALCIUM 9.2 MG/DL (8.5-10.1); CARBON DIOXIDE 24 MMOL/L (21-32); CHLORIDE 99 MMOL/L (98-107); CREATININE 1.1 MG/DL (0.55-1.30); POTASSIUM 3.7 MMOL/L (3.5-5.1); SODIUM 135 MMOL/L (136-145)
[2018-08-01] VITALS (8 sets, daily range): BP systolic 110–136; BP diastolic 65–89
[2018-08-01 00:03] LABS: ALANINE AMINOTRANSFERASE 44 U/L (12-78); ALBUMIN 2.9 G/DL (3.4-5.0); ALBUMIN/GLOBULIN RATIO 0.5 (1.0-2.7); ALKALINE PHOSPHATASE 140 U/L (46-116); ASPARTATE AMINO TRANSFERASE 24 U/L (15-37); BILIRUBIN,TOTAL 0.3 MG/DL (0.2-1.0); CKMB 1.7 NG/ML (0.0-3.6); CREATINE KINASE 50 U/L (26-308)
--- NOTE | 2018-08-01 00:33 | Emergency Room Report ---
History of Present Illness General Chief Complaint: Gastrointestinal Bleed Source: Medical Record, EMS Present Illness HPI This is a 67-year-old male with multiple medical problem. He has a tracheostomy and feeding tube. He presents with chief complaint of coffee- ground emesis. Onset today. Similar symptom in the past. He was admitted in May for the same. No fever or chills. No abdominal distention. Denies any other complaint. History is through the [facility] note and medical record. Patient is nonverbal. Allergies: Coded Allergies: NO KNOWN DRUG ALLERGIES (Verified Allergy, Unknown, 09/11/16) Patient History Past Medical History: see triage record, old chart reviewed Past Surgical History: other Pertinent Family History: none Social History: Denies: smoking Immunizations: other Reviewed Nursing Documentation: PMH: Agreed; PSxH: Agreed Nursing Documentation-PMH Past Medical History: No History, Except For Hx Cardiac Problems: Yes - trach and vent, CVD, anemia, atherosclerotic heart disease, angina Hx Hypertension: Yes - hypothyroidism Hx Asthma: Yes Hx COPD: No Hx Diabetes: Yes - DM II Hx Cancer: No Hx Gastrointestinal Problems: Yes - Gastrostomy, GERD, chonric peptic ulcer Hx Dialysis: Yes - pre renal azotemia, uti Hx Neurological Problems: Yes - dementia Hx Cerebrovascular Accident: Yes Hx Transient Ischemic Attacks: Yes Hx Dementia: Yes Hx Alzheimer's Disease: Yes Hx Parkinson's Disease: Yes Hx Encephalitis: Yes Hx Seizures: Yes Hx Epilepsy: Yes Hx Paralysis: Yes - HEMIPLEGIA Hx Concentration Difficulty: Yes Hx Speech Problem: Yes Hx Aphasia: Yes Hx Weakness: Yes Hx Fatigue: Yes Hx Neurologic Surgery: No Hx Brain Shunt: No Review of Systems Gastrointestinal: Reports: nausea, vomiting All Other Systems: limited - Nonverbal Physical Exam Vital Signs Date Time Temp Pulse Resp B/P (MAP) Pulse Ox O2 Delivery O2 Flow Rate FiO2 07/31/18 22:43 97.5 84 18 115/75 99 Mechanical Ventilator 07/31/18 23:24 40 vitals normal Sp02 EP Interpretation: reviewed, normal General Appearance: alert, Chronically Ill Head: normocephalic, atraumatic Eyes: bilateral eye PERRL, bilateral eye EOMI ENT: hearing grossly normal, normal pharynx Neck: full range of motion, supple, no meningismus, tracheotomy Respiratory: chest non-tender, lungs clear, normal breath sounds Cardiovascular #1: regular rate, rhythm, no murmur Gastrointestinal: normal bowel sounds, non tender, no mass, no organomegaly, no bruit, non-distended Musculoskeletal: other - Contracted Psychiatric: mood/affect normal Skin: warm/dry Medical Decision Making Diagnostic Impression: Primary Impression: GI bleed Qualified Codes: K92.2 - Gastrointestinal hemorrhage, unspecified Additional Impression: Anemia Qualified Codes: D64.9 - Anemia, unspecified ER Course Patient with upper GI bleeding. This may be secondary to gastritis, ulcer him a perforation to name a few. We'll admit for further evaluation. I contacted Dr. Beal who will admit for Dr. Viveros. Lab Results Impression labs unremarkable EKG Diagnostic Results Rate: normal Rhythm: NSR ST Segments: no acute changes Rhythm Strip Diag. Results Rhythm Strip Time: 00:34 EP Interpretation: yes Rate: 85 Rhythm: NSR, no PVC's, no ectopy Chest X-Ray Diagnostic Results Chest X-Ray Diagnostic Results : Chest X-Ray Ordered: Yes # of Views/Limited/Complete: 1 View Indication: Chest Pain EP Interpretation: Yes Interpretation: no consolidation, no effusion, no pneumothorax, no acute cardiopulmonary disease Impression: No acute disease Electronically Signed by: Ritchie Quesada MD Last Vital Signs Date Time Temp Pulse Resp B/P (MAP) Pulse Ox O2 Delivery O2 Flow Rate FiO2 07/31/18 23:26 91 24 40 07/31/18 23:24 Mechanical Ventilator 07/31/18 22:43 97.5 115/75 99 Status: improved Disposition: ADMITTED INPATIENT Condition: Serious Referrals: Gato Viveros DO (PCP) Ritchie Quesada MD Aug 01, 2018 00:33
[2018-08-01] MEDS ORDERED: Pantoprazole Inj ONE (00:45)
[2018-08-01] MEDS ORDERED: UNOBMED (01:21)
[2018-08-01 01:36] LABS: COLOR,URINE YELLOW
[2018-08-01 01:37] LABS: APPEARANCE,URINE CLOUDY; GLUCOSE, URINE (UA) NEGATIVE (NEGATIVE); KETONES,URINE NEGATIVE (NEGATIVE); PH,URINE 8 (4.5-8.0); PROTEIN,URINE 3+ (NEGATIVE)
[2018-08-01 01:38] LABS: BILIRUBIN, URINE NEGATIVE (NEGATIVE); NITRITE,URINE NEGATIVE (NEGATIVE)
[2018-08-01 01:39] LABS: LEUKOCYTE ESTERASE ,URINE 3+ (NEGATIVE); UROBILINOGEN,URINE NORMAL MG/DL (0.0-1.0)
[2018-08-01] MEDS ORDERED: Acetaminophen 650mg/20.3ml GT PRN (02:00)
[2018-08-01] MEDS ORDERED: cefTRIAXone 1 GM in D5W 55 ML IVPB ONE (02:15)
[2018-08-01 04:54] LABS: BASOPHILS % (AUTO) 0.6 % (0.0-2.0); EOSINOPHILS % (AUTO) 1.7 % (0.0-3.0); HEMATOCRIT 26.6 % (42.0-52.0); HEMOGLOBIN 8.6 G/DL (14.2-18.0); LYMPHOCYTES % (AUTO) 15.7 % (20.0-45.0); MEAN CORPUSCULAR VOLUME 82 FL (80-99); MONOCYTES % (AUTO) 10.4 % (1.0-10.0); NEUTROPHILS % (AUTO) 71.6 % (45.0-75.0); PLATELET COUNT 278 K/UL (150-450); RED BLOOD COUNT 3.26 M/UL (4.70-6.10); RED CELL DISTRIBUTION WIDTH 12.9 % (11.6-14.8); WHITE BLOOD COUNT 11.6 K/UL (4.8-10.8)
[2018-08-01 05:21] LABS: ALANINE AMINOTRANSFERASE 37 U/L (12-78); ALBUMIN 2.6 G/DL (3.4-5.0); ALBUMIN/GLOBULIN RATIO 0.5 (1.0-2.7); ALKALINE PHOSPHATASE 129 U/L (46-116); ANION GAP 12 mmol/L (5-15); ASPARTATE AMINO TRANSFERASE 20 U/L (15-37); BILIRUBIN,TOTAL 0.2 MG/DL (0.2-1.0); BLOOD UREA NITROGEN 37 mg/dL (7-18); CALCIUM 8.4 MG/DL (8.5-10.1); CARBON DIOXIDE 21 MMOL/L (21-32); CHLORIDE 103 MMOL/L (98-107); POTASSIUM 3.3 MMOL/L (3.5-5.1); SODIUM 136 MMOL/L (136-145)
--- NOTE | 2018-08-01 06:16 | Diagnostic Imaging Report ---
EXAM: XR Chest, 1 View CLINICAL HISTORY: CP TECHNIQUE: Frontal view of the chest. COMPARISON: 05/20/18 IMPRESSION: Suboptimal positioning. No interval consolidation, overt edema or other acute cardiopulmonary findings. Tracheostomy, elevation right hemidiaphragm and other unchanged findings.
[2018-08-01] MEDS ORDERED: Pantoprazole Inj IVP SCH (09:00)
[2018-08-01] MEDS ORDERED: Tubing IV Secondary IV ONE (09:11)
[2018-08-01] MEDS ORDERED: 1/2 NS 1000ml IV ONE (09:11)
--- NOTE | 2018-08-01 11:47 | Consultation ---
Consult Note Consult Note This is a 67-year-old male with multiple medical problem. He has a tracheostomy and feeding tube. He presents with chief complaint of coffee- ground emesis. Onset today. Similar symptom in the past. He was admitted in May for the same. No fever or chills. No abdominal distention. Denies any other complaint. History is through the skilled nursing note and medical record. Patient is nonverbal. Past Medical History: No History, Except For Hx Cardiac Problems: Yes - trach and vent, CVD, anemia, atherosclerotic heart disease, angina Hx Hypertension: Yes - hypothyroidism Hx Asthma: Yes Hx Diabetes: Yes - DM II Hx Gastrointestinal Problems: Yes - Gastrostomy, GERD, chonric peptic ulcer Hx Dialysis: Yes - pre renal azotemia, uti Hx Neurological Problems: Yes - dementia Hx Cerebrovascular Accident: Yes Hx Transient Ischemic Attacks: Yes Hx Dementia: Yes Hx Alzheimer's Disease: Yes Hx Parkinson's Disease: Yes Hx Encephalitis: Yes Hx Seizures: Yes Hx Epilepsy: Yes Hx Paralysis: Yes - HEMIPLEGIA Hx Concentration Difficulty: Yes Hx Speech Problem: Yes Hx Aphasia: Yes Hx Weakness: Yes Hx Fatigue: Yes Assessment/Plan GI bleed Anemia Low K K supplement Gastric support Anemia Sav Day MD Aug 01, 2018 11:47
--- NOTE | 2018-08-01 16:30 | History and Physical Report ---
DATE OF ADMISSION: 07/31/[address] Gato Viveros. HISTORY OF PRESENT ILLNESS: The patient admitted for GI bleed, has history of trach and PEG, admitted for upper GI bleed with a hemoglobin of 9.3. Cannot obtain history from the patient. PAST MEDICAL HISTORY: Constipation and chronic respiratory failure, hypothyroidism, constipation, GERD, history of pyelonephritis, history of hypertension, malnutrition, history of C. diff, history of dysphagia, history of esophagitis, history of GI bleed, history of UTI, history of anemia. PAST SURGICAL HISTORY: Tracheostomy and PEG. Cannot get any more history from the patient. MEDICATIONS: Include multivitamin, omeprazole, Carafate. ALLERGIES: No known allergies. FAMILY HISTORY: Unable to obtain. SOCIAL HISTORY: Unable to obtain. REVIEW OF SYSTEMS: Unable to obtain. PHYSICAL EXAMINATION: VITAL SIGNS: Temperature 98, pulse is 82, blood pressure is 120/75. HEENT: Trach site is intact. CHEST: Bibasilar rales CARDIOVASCULAR: Regular rate and rhythm. GASTROINTESTINAL: Positive bowel sounds. G-tube site is intact. EXTREMITIES: edema. NEUROLOGICAL: The patient does not follow neurological exam. Reflexes equal on both sides. No organomegaly. LABORATORY AND DIAGNOSTIC DATA: WBC 13, hemoglobin 9.3, platelets 290. Sodium 135, potassium 3.7, BUN of 40, creatinine 1.1, glucose of 113. ASSESSMENT: 1. Upper GI vomiting bleed. 2. Trach and PEG. I have asked Dr. Hernandez, Dr. Salvador, Dr. Wilson to see the patient for the above mentioned diagnoses and treatment. Sven Johns M.D. DR: Iva JOB#: [id number] CC:
--- NOTE | 2018-08-01 16:53 | Consultation ---
Consult Note Consult Note HEMATOLOGY-ONCOLOGY CONSULTATION REFERRING MD: Gato Viveros REASON FOR CONSULT: Leukocytosis, anemia DOS: 08/01/2018 HISTORY OF PRESENT ILLNESS: The patient admitted for GI bleed, has history of trach and PEG, admitted for upper GI bleed with a hemoglobin of 9.3. Cannot obtain history from the patient. Hematology services consulted for the evaluation of anemia and leukocytosis. Anemia w/u has been ordered. PAST MEDICAL HISTORY: Constipation and chronic respiratory failure, hypothyroidism, constipation, GERD, history of pyelonephritis, history of hypertension, malnutrition, history of C. diff, history of dysphagia, history of esophagitis, history of GI bleed, history of UTI, history of anemia. PAST SURGICAL HISTORY: Tracheostomy and PEG. Cannot get any more history from the patient. ALLERGIES: No known allergies. FAMILY HISTORY: Unable to obtain. SOCIAL HISTORY: Unable to obtain. REVIEW OF SYSTEMS: Unable to obtain. PHYSICAL EXAMINATION: VITAL SIGNS: Have been reviewed HEENT: Trach site is intact. CHEST: Bibasilar rales CARDIOVASCULAR: Regular rate and rhythm. GASTROINTESTINAL: Positive bowel sounds. G-tube site is intact. EXTREMITIES: + edema. NEUROLOGICAL: The patient does not follow neurological exam. Reflexes equal on both sides. No organomegaly. LABORATORY AND DIAGNOSTIC DATA: WBC 13, hemoglobin 9.3, platelets 290. Sodium 135, potassium 3.7, BUN of 40, creatinine 1.1, glucose of 113. ASSESSMENT AND RECOMMENDATIONS # Anemia of chronic disease (or of iron deficiency) due to underlying chronic medical issues, multifactorial --> Anemia w/u has been ordered --> No evidence of hemolysis is noted, peripheral smear has been reviewed. --> Hgb goal >7. Transfuse prn. --> Epogen or iron at this time is not particularly indicated # Leukocytosis. Likely related to underlying infection versus reactive process. --> Peripheral has been ordered, results are pending --> Medications have been reviewed --> Imaging has been reviewed. CXR shows Suboptimal positioning. No interval consolidation, overt edema or other acute cardiopulmonary findings. --> Blood cultures and urine cultures are pending. --> Has been started on abx, empiric treatment # Upper GI vomiting bleed. # Trach and PEG. GREATLY APPRECIATE CONSULTATION. Nikos Nath MD Aug 01, 2018 16:53
--- NOTE | 2018-08-01 17:48 | General Progress Note ---
Assessment/Plan Assessment/Plan GI CONSULT - For Dr. Wilson Assessment - Dark stools x 2 @ SNF - Anemia - OBS - Resp failure, trach - s/p GT - Contractures Recommendations - NPO - IVF - PPI - Follow H&H - Message left with conservator to discuss re EGD Thank you Ritu Ayala MD Subjective Allergies: Coded Allergies: NO KNOWN DRUG ALLERGIES (Verified Allergy, Unknown, 09/11/16) Objective Last 24 Hour Vital Signs Date Time Temp Pulse Resp B/P (MAP) Pulse Ox O2 Delivery O2 Flow Rate FiO2 08/01/18 16:44 74 16 40 08/01/18 16:28 79 08/01/18 16:00 Mechanical Ventilator 08/01/18 16:00 40 08/01/18 16:00 79 08/01/18 16:00 98.0 77 20 110/80 (90) 100 08/01/18 14:34 74 16 40 08/01/18 13:41 86 08/01/18 12:45 83 16 40 08/01/18 12:00 97.8 85 20 126/70 (88) 100 08/01/18 12:00 40 08/01/18 12:00 Mechanical Ventilator 08/01/18 11:00 87 17 40 08/01/18 08:33 89 20 40 08/01/18 08:22 88 08/01/18 08:00 98.0 80 20 120/75 (90) 100 08/01/18 08:00 40 08/01/18 08:00 Mechanical Ventilator 08/01/18 06:40 82 16 40 08/01/18 05:17 81 16 40 08/01/18 04:00 40 08/01/18 04:00 97.5 89 20 118/77 (91) 100 08/01/18 04:00 Mechanical Ventilator 08/01/18 03:35 88 08/01/18 03:22 86 19 40 08/01/18 02:03 101 08/01/18 02:00 97.3 101 16 125/89 (101) 08/01/18 01:40 Mechanical Ventilator 08/01/18 01:20 98.3 92 21 126/72 100 Mechanical Ventilator 40 08/01/18 01:14 99 21 40 08/01/18 01:00 98.3 92 20 126/72 100 Mechanical Ventilator 40 08/01/18 00:00 98.3 89 16 136/75 99 Mechanical Ventilator 40 07/31/18 23:26 91 24 40 07/31/18 23:24 91 24 Mechanical Ventilator 40 07/31/18 23:00 84 18 Mechanical Ventilator 07/31/18 22:43 97.5 84 18 115/75 99 Mechanical Ventilator Intake and Output 07/31/18 08/01/18 18:59 06:59 Intake Total 212.5 ml Output Total 200 ml Balance 12.5 ml IV Total 212.5 ml Output Urine Total 200 ml Laboratory Tests 07/31/18 23:05: White Blood Count 13.0H, Red Blood Count 3.48L, Hemoglobin 9.3L, Hematocrit 28.3L, Mean Corpuscular Volume 81, Mean Corpuscular Hemoglobin 26.8L, Mean Corpuscular Hemoglobin Concent 33.0, Red Cell Distribution Width 13.0, Platelet Count 290, Mean Platelet Volume 7.8, Neutrophils (%) (Auto) 73.2, Lymphocytes (% ) (Auto) 15.8L, Monocytes (%) (Auto) 9.1, Eosinophils (%) (Auto) 1.4, Basophils (%) (Auto) 0.5, Sodium Level 135L, Potassium Level 3.7, Chloride Level 99, Carbon Dioxide Level 24, Anion Gap 12, Blood Urea Nitrogen 40H, Creatinine 1.1, Estimat Glomerular Filtration Rate > 60, Glucose Level 113H, Calcium Level 9.2, Total Bilirubin 0.3, Aspartate Amino Transf (AST/SGOT) 24, Alanine Aminotransferase (ALT/SGPT) 44, Alkaline Phosphatase 140H, Total Creatine Kinase 50, Creatine Kinase MB 1.7, Creatine Kinase MB Relative Index 3.4, Troponin I 0.000, Total Protein 8.8H, Albumin 2.9L, Globulin 5.9, Albumin/ Globulin Ratio 0.5L 08/01/18 00:30: Urine Color Yellow, Urine Appearance Cloudy, Urine pH 8, Urine Specific [place] 1.010, Urine Protein 3+H, Urine Glucose (UA) Negative, Urine Ketones Negative, Urine Blood 5+H, Urine Nitrite Negative, Urine Bilirubin Negative, Urine Urobilinogen Normal, Urine Leukocyte Esterase 3+H, Urine RBC TntcH, Urine WBC TntcH, Urine Squamous Epithelial Cells None, Urine Bacteria ManyH 08/01/18 02:55: White Blood Count 11.6H, Red Blood Count 3.26L, Hemoglobin 8.6L, Hematocrit 26.6L, Mean Corpuscular Volume 82, Mean Corpuscular Hemoglobin 26.3L, Mean Corpuscular Hemoglobin Concent 32.2, Red Cell Distribution Width 12.9, Platelet Count 278, Mean Platelet Volume 7.7, Neutrophils (%) (Auto) 71.6, Lymphocytes (% ) (Auto) 15.7L, Monocytes (%) (Auto) 10.4H, Eosinophils (%) (Auto) 1.7, Basophils (%) (Auto) 0.6, Sodium Level 136, Potassium Level 3.3L, Chloride Level 103, Carbon Dioxide Level 21, Anion Gap 12, Blood Urea Nitrogen 37H, Creatinine 1.0, Estimat Glomerular Filtration Rate > 60, Glucose Level 119H, Calcium Level 8.4L, Total Bilirubin 0.2, Aspartate Amino Transf (AST/SGOT) 20, Alanine Aminotransferase (ALT/SGPT) 37, Alkaline Phosphatase 129H, Total Protein 7.9, Albumin 2.6L, Globulin 5.3, Albumin/Globulin Ratio 0.5L, Prothrombin Time 10.8, Prothromb Time International Ratio 1.0, Activated Partial Thromboplast Time 32 Height (Feet): 5 Height (Inches): 8.00 Weight (Pounds): 135 Ritu Ayala MD Aug 01, 2018 17:48
--- NOTE | 2018-08-01 19:57 | Consultation ---
Consult Note Assessment/Plan #[id number] vdrf bronchitis possible early pna UTI sepsis AMS gi bleed Nikia Hopson DO Aug 01, 2018 19:57
--- NOTE | 2018-08-01 20:15 | Consultation ---
DATE OF CONSULTATION: 08/01/2018 GASTROENTEROLOGY CONSULTATION CONSULTING PHYSICIAN: Ritu Ayala M.D. REFERRING PHYSICIAN: Sven Johns M.D. CHIEF COMPLAINT: I was asked to see this patient by Dr. Sven Johns for evaluation of dark stools. HISTORY OF PRESENT ILLNESS: The patient is an unfortunate 67-year-old white man, who is bed-bound with chronic tracheostomy and gastrostomy from a long term, who was found to have two bowel movements which were dark. They became concerned for acute gastrointestinal bleeding. The patient was sent to the emergency room and subsequently admitted. The patient's vital signs were stable and he had no further dark stools. He was unable to provide any history and most of the information is only available from the chart. PAST MEDICAL HISTORY: History of constipation, chronic respiratory failure, hypothyroidism, gastroesophageal reflux disease, pyelonephritis, hypertension, malnutrition, history of Clostridium difficile, dysphagia, esophagitis, history of gastrointestinal bleeding, history of urinary tract infection, and history of anemia. PAST SURGICAL HISTORY: Status post tracheostomy catheter and status post gastrostomy catheter. MEDICATIONS: See the chart list for details. ALLERGIES: No known drug allergies. FAMILY HISTORY: Unavailable and unobtainable. SOCIAL HISTORY: Unavailable and unobtainable. REVIEW OF SYSTEMS: Unavailable and unobtainable. 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 HEENT: Normocephalic and atraumatic. NECK: Revealed tracheostomy catheter. CHEST: Revealed coarse breath sounds. CARDIOVASCULAR: Revealed regular rate. ABDOMEN: Soft and flat with good bowel sounds. There was an old gastrostomy tube in good position. EXTREMITIES: Revealed contracture deformity. NEUROLOGIC: Notable for obtunded state. LABORATORY DATA: Noted. ASSESSMENT: This patient presents with dark stools, which is typically indicative of gastrointestinal bleeding. However, no further black stools have been noted here and the patient will be followed closely. I have placed a call to the patient's conservator regarding management and possible endoscopy, and I am awaiting a call back. In the meantime, the patient seems reasonably stable and can be followed with serial blood pressure measurements. I would give him his proton pump inhibitor and IV fluids, and keeping him n.p.o. Once consent has been obtained then an upper GI endoscopy will be done to evaluate the upper gastrointestinal tract. RECOMMENDATIONS: Per above discussion and per orders written in the chart. Thank you for asking me to participate in the care of this patient. Ritu Ayala M.D. DR: ALBERTO JOB#: [id number] CC:
[2018-08-01] MEDS: Pantoprazole Inj IVP SCH (21:00)
--- NOTE | 2018-08-01 21:30 | Consultation ---
DATE OF CONSULTATION: 08/01/2018 PULMONARY CONSULT: CONSULTING PHYSICIAN: Nikia Hopson D.O. REASON FOR CONSULTATION: Ventilator-dependent respiratory failure. HISTORY OF PRESENT ILLNESS: The patient was brought into the emergency room from his facility. He is ventilator dependent. Copious amount of purulent secretions being suctioned. The patient is unresponsive, unable to provide a history. Apparently, was reported coffee-grounds emesis too, which started yesterday on the day of admission. He has had no episodes reported of nausea, vomiting, or diarrhea. PAST MEDICAL HISTORY: Ventilator-dependent respiratory failure, pneumonia, sepsis, and gastroesophageal reflux disease. FAMILY HISTORY: Unavailable. REVIEW OF SYSTEMS: Unavailable. MEDICATIONS: Pre-hospital and current hospital medications were reviewed, reconciled, and documented in the electronic medical record by dose, frequency, and route. ALLERGIES: No known drug allergies. SURGICAL HISTORY: Positive for trach and PEG. PHYSICAL EXAMINATION: GENERAL: At the time of exam, he is obtunded on a ventilator. Currently in no acute respiratory distress. VITAL SIGNS: He is afebrile. Pulse is 82, respirations 16, and blood pressure 110/80. HEENT: Normocephalic, atraumatic. Oropharynx is dry. Nasal mucosa dry. NECK: Supple. Trach is clean, dry, and intact. LUNGS: Bilateral rhonchi. Decreased at the bases. No wheeze present. HEART: Regular rhythm without murmur. ABDOMEN: Soft, nontender. Positive bowel sounds present. G-tube site with mild erythema. It is clean and dry. EXTREMITIES: With positive edema. NEUROLOGIC: Does not follow commands. SKIN: Rashes and wounds are documented in the nursing notes. LABORATORY DATA: His white count 11.6, hemoglobin 8.6, and platelets are 278. Sodium 136, potassium 3.3, chloride 103, bicarb 21, BUN 37, creatinine 1, and glucose is 119. Alkaline phosphatase is mildly elevated at 129. He has no baseline ABGs. Urinalysis is positive for leukocyte esterase. Stool OB is pending. His INR is 1. He had a chest x-ray done on admission, which shows elevated right hemidiaphragm. Otherwise, unclear for underlying pneumonic process. ASSESSMENT: 1. Ventilator-dependent respiratory failure. 2. Trach and PEG. 3. Dysphagia, probably recurrent aspiration, bronchitis at the least. 4. Renal insufficiency. 5. Dehydration. 6. Anemia. 7. GI bleed. PLAN: For the patient, continue on broad-spectrum antibiotics, nebulizers, sputum for C and S, urinalysis, and UA for C and S. DVT prophylaxis. Resume pre-hospital medications. We will follow up with the GI. PPI has been started and should be continued at this time and for possible EGD if agreed by the conservator. We will continue to follow the patient for the remainder of his hospital stay. Nikia Hopson D.O. DR: CHARLENE JOB#: [id number] CC:
[2018-08-01] MEDS: Cefepime HCl 1 GM in D5W 55 ML IVPB SCH (22:27)
[2018-08-01] MEDS ORDERED: Vancomycin 1250mg/D5W 250ml IVPB ONE (22:30)
[2018-08-01] MEDS ORDERED: Albuterol ud Inhalation HHN SCH (23:00)
[2018-08-01] MEDS: Albuterol ud Inhalation HHN SCH (23:21)
[2018-08-02] VITALS: BP 134/72
[2018-08-02] MEDS: Albuterol ud Inhalation HHN SCH ×5 (03:32→18:54)
[2018-08-02 04:00] VITALS: BP 129/70
[2018-08-02 05:09] LABS: HEMATOCRIT 23.5 % (42.0-52.0); HEMOGLOBIN 7.7 G/DL (14.2-18.0); MEAN CORPUSCULAR VOLUME 82 FL (80-99); PLATELET COUNT 244 K/UL (150-450); RED BLOOD COUNT 2.85 M/UL (4.70-6.10); RED CELL DISTRIBUTION WIDTH 13.2 % (11.6-14.8); WHITE BLOOD COUNT 7.7 K/UL (4.8-10.8)
[2018-08-02 05:43] LABS: ALANINE AMINOTRANSFERASE 35 U/L (12-78); ALBUMIN 2.5 G/DL (3.4-5.0); ALBUMIN/GLOBULIN RATIO 0.5 (1.0-2.7); ALKALINE PHOSPHATASE 122 U/L (46-116); ANION GAP 11 mmol/L (5-15); ASPARTATE AMINO TRANSFERASE 17 U/L (15-37); BILIRUBIN,TOTAL 0.3 MG/DL (0.2-1.0); BLOOD UREA NITROGEN 29 mg/dL (7-18); CALCIUM 8.7 MG/DL (8.5-10.1); CARBON DIOXIDE 19 MMOL/L (21-32); CHLORIDE 108 MMOL/L (98-107); CREATININE 1.1 MG/DL (0.55-1.30); FERRITIN 74 NG/ML (8-388); GAMMA GLUTAMYL TRANSPEPTIDASE 34 U/L (5-85); PHOSPHORUS 2.7 MG/DL (2.5-4.9); POTASSIUM 3.8 MMOL/L (3.5-5.1); SODIUM 138 MMOL/L (136-145)
[2018-08-02 06:25] LABS: % IRON SATURATION 12 % (15-50); IRON 27 ug/dL (50-175); TOTAL IRON BINDING CAPACITY 228 ug/dL (250-450)
[2018-08-02 08:00] VITALS: BP 137/70
[2018-08-02] MEDS: Pantoprazole Inj IVP SCH ×2 (08:38→20:33)
[2018-08-02] MEDS: Cefepime HCl 1 GM in D5W 55 ML IVPB SCH ×2 (08:38→20:33)
--- NOTE | 2018-08-02 09:42 | Nephrology Progress Note ---
Assessment/Plan Problem List: (1) Hypokalemia (2) Gastrointestinal hemorrhage (3) Anemia (4) Tracheostomy dependence Assessment GI bleed Anemia low Iron Low K resolved Plan K supplement Gastric support IV Iron Per GI Subjective ROS Limited/Unobtainable: Yes Objective Objective Last 24 Hour Vital Signs Date Time Temp Pulse Resp B/P (MAP) Pulse Ox O2 Delivery O2 Flow Rate FiO2 08/02/18 08:30 78 18 40 08/02/18 07:32 79 18 100 Mechanical Ventilator 40 08/02/18 07:25 40 08/02/18 07:25 74 20 100 Mechanical Ventilator 40 08/02/18 07:23 74 17 40 08/02/18 05:30 72 16 40 08/02/18 04:00 80 08/02/18 04:00 97.7 80 16 129/70 (89) 100 08/02/18 04:00 40 08/02/18 04:00 Mechanical Ventilator 08/02/18 03:31 96 21 100 Mechanical Ventilator 40 08/02/18 03:29 89 19 40 08/02/18 03:20 89 19 98 Mechanical Ventilator 40 08/02/18 01:30 86 22 40 08/02/18 00:00 75 08/02/18 00:00 98.2 76 16 134/72 (92) 100 08/02/18 00:00 Mechanical Ventilator 08/01/18 23:28 88 26 40 08/01/18 23:26 92 28 100 Mechanical Ventilator 40 08/01/18 23:15 88 26 98 Mechanical Ventilator 40 08/01/18 21:09 84 22 40 08/01/18 20:00 Mechanical Ventilator 08/01/18 20:00 97.9 78 16 110/65 (80) 100 08/01/18 20:00 40 08/01/18 20:00 77 08/01/18 19:20 82 16 40 08/01/18 16:44 74 16 40 08/01/18 16:28 79 08/01/18 16:00 Mechanical Ventilator 08/01/18 16:00 40 08/01/18 16:00 79 08/01/18 16:00 98.0 77 20 110/80 (90) 100 08/01/18 14:34 74 16 40 08/01/18 13:41 86 08/01/18 12:45 83 16 40 08/01/18 12:00 97.8 85 20 126/70 (88) 100 08/01/18 12:00 40 08/01/18 12:00 Mechanical Ventilator 08/01/18 11:00 87 17 40 Intake and Output 08/01/18 08/02/18 19:00 07:00 Intake Total 350 ml 1530 ml Output Total 350 ml 700 ml Balance 0 ml 830 ml IV Total 350 ml 1530 ml Output Urine Total 350 ml 700 ml # Bowel Movements 1 2 Laboratory Tests 08/01/18 18:00: Stool Occult Blood [Pending] 08/02/18 04:30: White Blood Count 7.7, Red Blood Count 2.85L, Hemoglobin 7.7L, Hematocrit 23.5L , Mean Corpuscular Volume 82, Mean Corpuscular Hemoglobin 27.0, Mean Corpuscular Hemoglobin Concent 32.9, Red Cell Distribution Width 13.2, Platelet Count 244, Mean Platelet Volume 7.6, Neutrophils (%) (Auto) , Lymphocytes (%) ( Auto) , Monocytes (%) (Auto) , Eosinophils (%) (Auto) , Basophils (%) (Auto) , Sodium Level 138, Potassium Level 3.8, Chloride Level 108H, Carbon Dioxide Level 19L, Anion Gap 11, Blood Urea Nitrogen 29H, Creatinine 1.1, Estimat Glomerular Filtration Rate > 60, Glucose Level 116H, Hemoglobin A1c 5.4, Uric Acid 5.6, Calcium Level 8.7, Phosphorus Level 2.7, Magnesium Level 2.0, Iron Level 27L, Total Iron Binding Capacity 228L, Percent Iron Saturation 12L, Unsaturated Iron Binding 201, Ferritin 74, Total Bilirubin 0.3, Gamma Glutamyl Transpeptidase 34, Aspartate Amino Transf (AST/SGOT) 17, Alanine Aminotransferase (ALT/SGPT) 35, Alkaline Phosphatase 122H, C-Reactive Protein, Quantitative 5.1H, Pro-B-Type Natriuretic Peptide 207H, Total Protein 7.4, Albumin 2.5L, Globulin 4.9, Albumin/Globulin Ratio 0.5L, Vitamin B12 Level 1803H , Folate 53.6, Thyroid Stimulating Hormone (TSH) 1.737 Height (Feet): 5 Height (Inches): 8.00 Weight (Pounds): 135 General Appearance: lethargic Cardiovascular: normal rate Respiratory/Chest: decreased breath sounds Abdomen: soft FoulaSav dawkins MD 23, 2018 09:42
[2018-08-02] MEDS ORDERED: Tubing IV Secondary IV ONE (10:38)
[2018-08-02] MEDS ORDERED: NS 275ml ONE (10:38)
--- NOTE | 2018-08-02 10:59 | General Progress Note ---
Assessment/Plan Problem List: (1) Alzheimer's dementia ICD Codes: G30.9 - Alzheimer's disease, unspecified SNOMED: 64618910 (2) Iron deficiency ICD Codes: E61.1 - Iron deficiency SNOMED: 23092186 (3) Diabetes ICD Codes: E11.9 - Type 2 diabetes mellitus without complications SNOMED: 04179208 (4) Gastrointestinal hemorrhage ICD Codes: K92.2 - Gastrointestinal hemorrhage, unspecified SNOMED: 34442057 (5) GI bleed ICD Codes: K92.2 - Gastrointestinal hemorrhage, unspecified SNOMED: 63774094 Qualifiers: Qualified Codes: K92.2 - Gastrointestinal hemorrhage, unspecified Status: progressing Assessment/Plan afebrile gi bleeding check h/h no wheezing dm vitals holding Subjective ROS Limited/Unobtainable: Yes Allergies: Coded Allergies: NO KNOWN DRUG ALLERGIES (Verified Allergy, Unknown, 09/11/16) Objective Last 24 Hour Vital Signs Date Time Temp Pulse Resp B/P (MAP) Pulse Ox O2 Delivery O2 Flow Rate FiO2 08/02/18 08:30 78 18 40 08/02/18 08:00 40 08/02/18 08:00 Mechanical Ventilator 08/02/18 08:00 98.1 78 16 137/70 (92) 100 08/02/18 07:32 79 18 100 Mechanical Ventilator 40 08/02/18 07:25 40 08/02/18 07:25 74 20 100 Mechanical Ventilator 40 08/02/18 07:23 74 17 40 08/02/18 05:30 72 16 40 08/02/18 04:00 80 08/02/18 04:00 97.7 80 16 129/70 (89) 100 08/02/18 04:00 40 08/02/18 04:00 Mechanical Ventilator 08/02/18 03:31 96 21 100 Mechanical Ventilator 40 08/02/18 03:29 89 19 40 08/02/18 03:20 89 19 98 Mechanical Ventilator 40 08/02/18 01:30 86 22 40 08/02/18 00:00 75 08/02/18 00:00 98.2 76 16 134/72 (92) 100 08/02/18 00:00 Mechanical Ventilator 08/01/18 23:28 88 26 40 08/01/18 23:26 92 28 100 Mechanical Ventilator 40 08/01/18 23:15 88 26 98 Mechanical Ventilator 40 08/01/18 21:09 84 22 40 08/01/18 20:00 Mechanical Ventilator 08/01/18 20:00 97.9 78 16 110/65 (80) 100 08/01/18 20:00 40 08/01/18 20:00 77 08/01/18 19:20 82 16 40 08/01/18 16:44 74 16 40 08/01/18 16:28 79 08/01/18 16:00 Mechanical Ventilator 08/01/18 16:00 40 08/01/18 16:00 79 08/01/18 16:00 98.0 77 20 110/80 (90) 100 08/01/18 14:34 74 16 40 08/01/18 13:41 86 08/01/18 12:45 83 16 40 08/01/18 12:00 97.8 85 20 126/70 (88) 100 08/01/18 12:00 40 08/01/18 12:00 Mechanical Ventilator 08/01/18 11:00 87 17 40 Intake and Output 08/01/18 08/02/18 19:00 07:00 Intake Total 350 ml 1530 ml Output Total 350 ml 700 ml Balance 0 ml 830 ml IV Total 350 ml 1530 ml Output Urine Total 350 ml 700 ml # Bowel Movements 1 2 Laboratory Tests 08/01/18 18:00: Stool Occult Blood [Pending] 08/02/18 04:30: White Blood Count 7.7, Red Blood Count 2.85L, Hemoglobin 7.7L, Hematocrit 23.5L , Mean Corpuscular Volume 82, Mean Corpuscular Hemoglobin 27.0, Mean Corpuscular Hemoglobin Concent 32.9, Red Cell Distribution Width 13.2, Platelet Count 244, Mean Platelet Volume 7.6, Neutrophils (%) (Auto) , Lymphocytes (%) ( Auto) , Monocytes (%) (Auto) , Eosinophils (%) (Auto) , Basophils (%) (Auto) , Sodium Level 138, Potassium Level 3.8, Chloride Level 108H, Carbon Dioxide Level 19L, Anion Gap 11, Blood Urea Nitrogen 29H, Creatinine 1.1, Estimat Glomerular Filtration Rate > 60, Glucose Level 116H, Hemoglobin A1c 5.4, Uric Acid 5.6, Calcium Level 8.7, Phosphorus Level 2.7, Magnesium Level 2.0, Iron Level 27L, Total Iron Binding Capacity 228L, Percent Iron Saturation 12L, Unsaturated Iron Binding 201, Ferritin 74, Total Bilirubin 0.3, Gamma Glutamyl Transpeptidase 34, Aspartate Amino Transf (AST/SGOT) 17, Alanine Aminotransferase (ALT/SGPT) 35, Alkaline Phosphatase 122H, C-Reactive Protein, Quantitative 5.1H, Pro-B-Type Natriuretic Peptide 207H, Total Protein 7.4, Albumin 2.5L, Globulin 4.9, Albumin/Globulin Ratio 0.5L, Vitamin B12 Level 1803H , Folate 53.6, Thyroid Stimulating Hormone (TSH) 1.737 Height (Feet): 5 Height (Inches): 8.00 Weight (Pounds): 135 Cardiovascular: normal rate Respiratory/Chest: lungs clear Abdomen: soft Sven Johns MD Aug 02, 2018 10:59
[2018-08-02] MEDS ORDERED: Iron Sucrose 200 MG in NS 110 ML IV SCH (11:00)
[2018-08-02] MEDS ORDERED: Lidocaine 1% Plain 30 ml INJ PRN (11:30)
[2018-08-02] MEDS ORDERED: Heparin 2000 units/Ns 1000ml INJ PRN (11:30)
--- NOTE | 2018-08-02 11:49 | Pulmonology Progress Note ---
Assessment/Plan Problems: (1) Upper GI bleed (2) Anemia (3) Chronic respiratory failure (4) Sepsis (5) Alzheimer's dementia (6) Severe protein-calorie malnutrition (7) Feeding by G-tube Assessment/Plan NPO IV fluids check cultures wbc decreasing ID evaluation H2 blockers prbc prn, ( consent signed, pt doesn't have any DPOA or relatives) dvt prophylaxis Subjective ROS Limited/Unobtainable: Yes Allergies: Coded Allergies: NO KNOWN DRUG ALLERGIES (Verified Allergy, Unknown, 09/11/16) Objective Last 24 Hour Vital Signs Date Time Temp Pulse Resp B/P (MAP) Pulse Ox O2 Delivery O2 Flow Rate FiO2 08/02/18 08:30 78 18 40 08/02/18 08:00 40 08/02/18 08:00 Mechanical Ventilator 08/02/18 08:00 79 08/02/18 08:00 98.1 78 16 137/70 (92) 100 08/02/18 07:32 79 18 100 Mechanical Ventilator 40 08/02/18 07:25 40 08/02/18 07:25 74 20 100 Mechanical Ventilator 40 08/02/18 07:23 74 17 40 08/02/18 05:30 72 16 40 08/02/18 04:00 80 08/02/18 04:00 97.7 80 16 129/70 (89) 100 08/02/18 04:00 40 08/02/18 04:00 Mechanical Ventilator 08/02/18 03:31 96 21 100 Mechanical Ventilator 40 08/02/18 03:29 89 19 40 08/02/18 03:20 89 19 98 Mechanical Ventilator 40 08/02/18 01:30 86 22 40 08/02/18 00:00 75 08/02/18 00:00 98.2 76 16 134/72 (92) 100 08/02/18 00:00 Mechanical Ventilator 08/01/18 23:28 88 26 40 08/01/18 23:26 92 28 100 Mechanical Ventilator 40 08/01/18 23:15 88 26 98 Mechanical Ventilator 40 08/01/18 21:09 84 22 40 08/01/18 20:00 Mechanical Ventilator 08/01/18 20:00 97.9 78 16 110/65 (80) 100 08/01/18 20:00 40 08/01/18 20:00 77 11/22/18 19:20 82 16 40 08/01/18 16:44 74 16 40 08/01/18 16:28 79 08/01/18 16:00 Mechanical Ventilator 08/01/18 16:00 40 08/01/18 16:00 79 08/01/18 16:00 98.0 77 20 110/80 (90) 100 08/01/18 14:34 74 16 40 08/01/18 13:41 86 08/01/18 12:45 83 16 40 08/01/18 12:00 97.8 85 20 126/70 (88) 100 08/01/18 12:00 40 08/01/18 12:00 Mechanical Ventilator Intake and Output 08/01/18 08/02/18 19:00 07:00 Intake Total 350 ml 1530 ml Output Total 350 ml 700 ml Balance 0 ml 830 ml IV Total 350 ml 1530 ml Output Urine Total 350 ml 700 ml # Bowel Movements 1 2 General Appearance: cachetic HEENT: normocephalic, atraumatic Respiratory/Chest: chest wall non-tender, lungs clear Cardiovascular: normal peripheral pulses, normal rate Abdomen: normal bowel sounds, soft, non tender Genitourinary: normal external genitalia Extremities: no cyanosis 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, no motor/sensory deficits Microbiology Date/Time Source Procedure Growth Status 08/01/18 00:30 Urine,Clean Catch Urine Culture - Preliminary Gram Negative Bacillus 1 Resulted 08/01/18 00:30 Rectum Received Laboratory Tests 08/01/18 18:00: Stool Occult Blood [Pending] 08/02/18 04:30: White Blood Count 7.7, Red Blood Count 2.85L, Hemoglobin 7.7L, Hematocrit 23.5L , Mean Corpuscular Volume 82, Mean Corpuscular Hemoglobin 27.0, Mean Corpuscular Hemoglobin Concent 32.9, Red Cell Distribution Width 13.2, Platelet Count 244, Mean Platelet Volume 7.6, Neutrophils (%) (Auto) , Lymphocytes (%) ( Auto) , Monocytes (%) (Auto) , Eosinophils (%) (Auto) , Basophils (%) (Auto) , Sodium Level 138, Potassium Level 3.8, Chloride Level 108H, Carbon Dioxide Level 19L, Anion Gap 11, Blood Urea Nitrogen 29H, Creatinine 1.1, Estimat Glomerular Filtration Rate > 60, Glucose Level 116H, Hemoglobin A1c 5.4, Uric Acid 5.6, Calcium Level 8.7, Phosphorus Level 2.7, Magnesium Level 2.0, Iron Level 27L, Total Iron Binding Capacity 228L, Percent Iron Saturation 12L, Unsaturated Iron Binding 201, Ferritin 74, Total Bilirubin 0.3, Gamma Glutamyl Transpeptidase 34, Aspartate Amino Transf (AST/SGOT) 17, Alanine Aminotransferase (ALT/SGPT) 35, Alkaline Phosphatase 122H, C-Reactive Protein, Quantitative 5.1H, Pro-B-Type Natriuretic Peptide 207H, Total Protein 7.4, Albumin 2.5L, Globulin 4.9, Albumin/Globulin Ratio 0.5L, Vitamin B12 Level 1803H , Folate 53.6, Thyroid Stimulating Hormone (TSH) 1.737 Current Medications Medications (Trade) Dose Ordered Sig/Wanda Route PRN Reason Start Time Stop Time Status Last Admin Dose Admin Acetaminophen (Tylenol) 650 mg Q4H PRN GT Mild Pain/Temp > 100.5 08/01/18 02:00 08/31/18 01:59 Albuterol Sulfate (Proventil) 2.5 mg Q4HRT HHN 08/01/18 23:00 08/06/18 22:59 08/02/18 11:44 Cefepime HCl 1 gm/ Dextrose 55 ml @ 110 mls/hr EVERY 12 HOURS IVPB 08/01/18 22:00 08/08/18 21:59 08/02/18 08:38 Chlorhexidine Gluconate (Jasmin-Hex 2%) 1 applic DAILY@2000 TOPIC 08/02/18 20:00 09/01/18 19:59 Dextrose/ Electrolytes 1,000 ml @ 75 mls/hr [id number] IV 08/01/18 13:00 08/31/18 12:59 08/02/18 03:00 Heparin Sodium/ Sodium Chloride (Heparin 2000 units/Ns 1000ml premix) 2,000 unit ONCE PRN INJ picc line placement 08/02/18 11:30 08/03/18 23:59 Iron Sucrose 100 mg/Sodium Chloride 60 ml @ 240 mls/hr BEDTIME IV 08/03/18 21:00 08/07/18 21:14 Iron Sucrose 200 mg/Sodium Chloride 120 ml @ 240 mls/hr ONCE IV 08/02/18 11:00 08/02/18 12:00 Lidocaine HCl (Xylocaine 1% 30ml) 30 ml ONCE PRN INJ picc line placement 08/02/18 11:30 08/03/18 23:59 Pantoprazole (Protonix) 40 mg Q12HR IVP 08/01/18 21:00 08/31/18 08:59 08/02/18 08:38 Vancomycin HCl (Vanco rx to dose) 1 ea DAILY PRN MISC Per rx protocol 08/01/18 20:45 08/31/18 20:44 Vancomycin HCl 500 mg/Dextrose 110 ml @ 110 mls/hr Q12HR@1000,2200 IVPB 08/02/18 10:00 08/07/18 09:59 Huma Keating MD Aug 02, 2018 11:49
[2018-08-02 12:00] VITALS: BP 121/66
[2018-08-02] MEDS: Vancomycin 500mg/D5W 110ml IVPB SCH ×4 (13:27→22:18)
--- NOTE | 2018-08-02 13:40 | General Progress Note ---
Assessment/Plan Assessment/Plan Assessment - Dark stools x 2 @ SNF - Anemia, declining H&H - OBS - Resp failure, trach - s/p GT - Contractures Recommendations - NPO - IVF - PPI - Follow H&H - will proceed with EGD on emergency, life saving basis Subjective Allergies: Coded Allergies: NO KNOWN DRUG ALLERGIES (Verified Allergy, Unknown, 09/11/16) Subjective declining H&H noted no call back from public guardian office (+) BM, OB (+) Objective Last 24 Hour Vital Signs Date Time Temp Pulse Resp B/P (MAP) Pulse Ox O2 Delivery O2 Flow Rate FiO2 08/02/18 12:35 75 16 40 08/02/18 12:00 97.9 78 16 121/66 (84) 100 08/02/18 12:00 72 08/02/18 12:00 40 08/02/18 12:00 Mechanical Ventilator 08/02/18 11:53 75 16 100 Mechanical Ventilator 40 08/02/18 11:43 40 08/02/18 11:43 71 16 100 Mechanical Ventilator 40 08/02/18 11:42 72 16 40 08/02/18 08:30 78 18 40 08/02/18 08:00 40 08/02/18 08:00 Mechanical Ventilator 08/02/18 08:00 79 08/02/18 08:00 98.1 78 16 137/70 (92) 100 08/02/18 07:32 79 18 100 Mechanical Ventilator 40 08/02/18 07:25 40 08/02/18 07:25 74 20 100 Mechanical Ventilator 40 08/02/18 07:23 74 17 40 08/02/18 05:30 72 16 40 08/02/18 04:00 80 08/02/18 04:00 97.7 80 16 129/70 (89) 100 08/02/18 04:00 40 08/02/18 04:00 Mechanical Ventilator 08/02/18 03:31 96 21 100 Mechanical Ventilator 40 08/02/18 03:29 89 19 40 08/02/18 03:20 89 19 98 Mechanical Ventilator 40 08/02/18 01:30 86 22 40 08/02/18 00:00 75 08/02/18 00:00 98.2 76 16 134/72 (92) 100 08/02/18 00:00 Mechanical Ventilator 08/01/18 23:28 88 26 40 08/01/18 23:26 92 28 100 Mechanical Ventilator 40 08/01/18 23:15 88 26 98 Mechanical Ventilator 40 08/01/18 21:09 84 22 40 08/01/18 20:00 Mechanical Ventilator 08/01/18 20:00 97.9 78 16 110/65 (80) 100 08/01/18 20:00 40 08/01/18 20:00 77 08/01/18 19:20 82 16 40 08/01/18 16:44 74 16 40 08/01/18 16:28 79 08/01/18 16:00 Mechanical Ventilator 08/01/18 16:00 40 08/01/18 16:00 79 08/01/18 16:00 98.0 77 20 110/80 (90) 100 08/01/18 14:34 74 16 40 08/01/18 13:41 86 Intake and Output 08/01/18 08/02/18 19:00 07:00 Intake Total 350 ml 1530 ml Output Total 350 ml 700 ml Balance 0 ml 830 ml IV Total 350 ml 1530 ml Output Urine Total 350 ml 700 ml # Bowel Movements 1 2 Laboratory Tests 08/01/18 18:00: Stool Occult Blood [Pending] 08/02/18 04:30: White Blood Count 7.7, Red Blood Count 2.85L, Hemoglobin 7.7L, Hematocrit 23.5L , Mean Corpuscular Volume 82, Mean Corpuscular Hemoglobin 27.0, Mean Corpuscular Hemoglobin Concent 32.9, Red Cell Distribution Width 13.2, Platelet Count 244, Mean Platelet Volume 7.6, Neutrophils (%) (Auto) , Lymphocytes (%) ( Auto) , Monocytes (%) (Auto) , Eosinophils (%) (Auto) , Basophils (%) (Auto) , Sodium Level 138, Potassium Level 3.8, Chloride Level 108H, Carbon Dioxide Level 19L, Anion Gap 11, Blood Urea Nitrogen 29H, Creatinine 1.1, Estimat Glomerular Filtration Rate > 60, Glucose Level 116H, Hemoglobin A1c 5.4, Uric Acid 5.6, Calcium Level 8.7, Phosphorus Level 2.7, Magnesium Level 2.0, Iron Level 27L, Total Iron Binding Capacity 228L, Percent Iron Saturation 12L, Unsaturated Iron Binding 201, Ferritin 74, Total Bilirubin 0.3, Gamma Glutamyl Transpeptidase 34, Aspartate Amino Transf (AST/SGOT) 17, Alanine Aminotransferase (ALT/SGPT) 35, Alkaline Phosphatase 122H, C-Reactive Protein, Quantitative 5.1H, Pro-B-Type Natriuretic Peptide 207H, Total Protein 7.4, Albumin 2.5L, Globulin 4.9, Albumin/Globulin Ratio 0.5L, Vitamin B12 Level 1803H , Folate 53.6, Thyroid Stimulating Hormone (TSH) 1.737 Height (Feet): 5 Height (Inches): 8.00 Weight (Pounds): 135 Ritu Ayala MD Aug 02, 2018 13:40
--- NOTE | 2018-08-02 13:43 | Pre-Procedure Note/Attestation ---
Pre-Procedure Note/Attestation Complete Prior to Procedure Planned Procedure: not applicable Procedure Narrative: EGD Indications for Procedure Pre-Operative Diagnosis: GIB Attestation I attest that I am unable to discuss the nature of the procedure; its benefits; risks and complications; and alternatives (and the risks and benefits of such alternatives), prior to the procedure, with the patient (or the patient's legal corporate sales representative). I have made several calls to patient's conservator (office of public guardian) and have left messages there with my cell phone number, but w/ o reply. RN has similarly failed to be able to contact them. The procedure is felt to be necessary on emergency basis to save patient's life, since he is dropping his blood count on a daily basis and is now requiring blood transfusion. I attest that I re-evaluated the patient just prior to the surgery and that there has been no change in the patient's H&P, except as documented below: Ritu Ayala MD Aug 02, 2018 13:43
[2018-08-02] MEDS ORDERED: Midazolam 2mg/2ml Inj ONE (13:50)
[2018-08-02] MEDS ORDERED: Propofol 200mg/20ml IV ONE (13:50)
[2018-08-02] MEDS ORDERED: fentaNYL 100 mcg/2 mL IV ONE (13:50)
[2018-08-02] MEDS ORDERED: Atropine Sulfate 0.4mg/ml inj ONE (13:51)
[2018-08-02] MEDS ORDERED: NS 500ML IVPB ONE (14:00)
--- NOTE | 2018-08-02 14:06 | Diagnostic Imaging Report ---
Indications: Needs long-term IV access Technique: Emergency attending physician consent was in the electronic medical record. Procedure performed at bedside. Procedural timeout performed. Ultrasound confirms patent compressible right brachial vein. Total sterile technique, including sterile probe cover and sterile gel, sterile gloves, hand hygiene, hat, mask, sterile gown, large sterile drape, and preparation with 2% chlorhexidine utilized. Local anesthesia with 1% lidocaine. Under real-time ultrasound guidance, puncture brachial vein using 21-gauge needle, passage 0.018 guidewire, exchange for 5 Malay peel-away sheath. 5 Malay Bard dual-lumen power PICC cut to 39 cm. It was inserted through the peel-away sheath. Peel-away sheath and guidewire removed. Catheter fixed to the skin. Both catheter ports aspirated and flushed. Patient tolerated procedure well, without immediate complication. Followup chest x-ray obtained, documents catheter tip position at the cavoatrial junction Impression: Successful bedside placement of right arm PICC under sonographic guidance, as described above.
--- NOTE | 2018-08-02 14:33 | Anethesia Preoperative Eval ---
Anesthesia Pre-op PMH/ROS General Date of Evaluation: Aug 02, 2018 Time of Evaluation: 13:40 Anesthesiologist: Cortes ASA Score: ASA 4 Mallampati Score Class I : Soft palate, uvula, fauces, pillars visible Class II: Soft palate, uvula, fauces visible Class III: Soft palate, base of uvula visible Class IV: Only hard plate visible Mallampati Classification: Class III Surgeon: Ja Diagnosis: GI bleed anemia Surgical Procedure: EGD Family History: no anesthesia problems Allergies: Coded Allergies: NO KNOWN DRUG ALLERGIES (Verified Allergy, Unknown, 09/11/16) Patient NPO?: Yes Past Medical History Cardiovascular: Reports: HTN; Denies: CAD, [place], valve dz, arrhythmia, other Pulmonary: Reports: other - respiratory failure vent dependent; Denies: asthma, COPD, [place] Gastrointestinal/Genitourinary: Reports: other - dysphagia PEG tube in recurrent rpisides of upper GI bleed; Denies: GERD, CRI, ESRD Neurologic/Psychiatric: 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 Exam Physician Exam Last Vital Signs Date Time Temp Pulse Resp B/P (MAP) Pulse Ox O2 Delivery O2 Flow Rate FiO2 08/02/18 12:35 75 16 40 08/02/18 12:00 97.9 121/66 (84) 100 08/02/18 12:00 Mechanical Ventilator Constitutional: NAD Neurologic: other - unable to obtaine severe encephalopathy Cardiovascular: RRR, no M/R/G Respiratory: other - bilateral rhales and cracles Gastrointestinal: S/NT/ND Airway Exam Mallampati Score: Class III - tracheostomy in place, vent dependent MO: limited Neck: stiff ROM: limited Teeth: missing Dentures: no upper, no lower Anesthesia Pre-op A/P Labs Hematology Test 08/02/18 04:30 White Blood Count 7.7 K/UL (4.8-10.8) Red Blood Count 2.85 M/UL (4.70-6.10) L Hemoglobin 7.7 G/DL (14.2-18.0) L Hematocrit 23.5 % (42.0-52.0) L Mean Corpuscular Volume 82 FL (80-99) Mean Corpuscular Hemoglobin 27.0 PG (27.0-31.0) Mean Corpuscular Hemoglobin Concent 32.9 G/DL (32.0-36.0) Red Cell Distribution Width 13.2 % (11.6-14.8) Platelet Count 244 K/UL (150-450) Mean Platelet Volume 7.6 FL (6.5-10.1) Neutrophils (%) (Auto) % (45.0-75.0) Lymphocytes (%) (Auto) % (20.0-45.0) Monocytes (%) (Auto) % (1.0-10.0) Eosinophils (%) (Auto) % (0.0-3.0) Basophils (%) (Auto) % (0.0-2.0) Chemistry Test 08/02/18 04:30 Sodium Level 138 MMOL/L (136-145) Potassium Level 3.8 MMOL/L (3.5-5.1) Chloride Level 108 MMOL/L (98-107) H Carbon Dioxide Level 19 MMOL/L (21-32) L Anion Gap 11 mmol/L (5-15) Blood Urea Nitrogen 29 mg/dL (7-18) H Creatinine 1.1 MG/DL (0.55-1.30) Estimat Glomerular Filtration Rate > 60 mL/min (>60) Glucose Level 116 MG/DL (74-106) H Hemoglobin A1c 5.4 % (4.3-6.0) Uric Acid 5.6 MG/DL (2.6-7.2) Calcium Level 8.7 MG/DL (8.5-10.1) Phosphorus Level 2.7 MG/DL (2.5-4.9) Magnesium Level 2.0 MG/DL (1.8-2.4) Iron Level 27 ug/dL (50-175) L Total Iron Binding Capacity 228 ug/dL (250-450) L Percent Iron Saturation 12 % (15-50) L Unsaturated Iron Binding 201 ug/dL (112-346) Ferritin 74 NG/ML (8-388) Total Bilirubin 0.3 MG/DL (0.2-1.0) Gamma Glutamyl Transpeptidase 34 U/L (5-85) Aspartate Amino Transf (AST/SGOT) 17 U/L (15-37) Alanine Aminotransferase (ALT/SGPT) 35 U/L (12-78) Alkaline Phosphatase 122 U/L (46-116) H C-Reactive Protein, Quantitative 5.1 mg/dL (0.00-0.90) H Pro-B-Type Natriuretic Peptide 207 pg/mL (0-125) H Total Protein 7.4 G/DL (6.4-8.2) Albumin 2.5 G/DL (3.4-5.0) L Globulin 4.9 g/dL Albumin/Globulin Ratio 0.5 (1.0-2.7) L Vitamin B12 Level 1803 PG/ML (193-986) H Folate 53.6 NG/ML (8.6-58.9) Thyroid Stimulating Hormone (TSH) 1.737 uiU/mL (0.358-3.740) Risk Assessment & Plan Assessment: ASA 4 Plan: MAC Status Change Before Surgery: No Pre-Antibiotics Drug: none Shant Kolb MD Aug 02, 2018 14:33
--- NOTE | 2018-08-02 14:35 | Immediate Post-Op Evaluation ---
Immediate Post-Op Evalulation Immediate Post-Op Evalulation Procedure: EGD with BX Date of Evaluation: Aug 02, 2018 Time of Evaluation: 14:32 IV Fluids: 200 Blood Products: none Estimated Blood Loss: min Urinary Output: none Blood Pressure Systolic: 136 Blood Pressure Diastolic: 72 Pulse Rate: 86 Respiratory Rate: 20 O2 Sat by Pulse Oximetry: 99 Temperature (Fahrenheit): 97.6 Pain Score (1-10): 0 Nausea: No Vomiting: No Complications none Patient Status: reacts, ventilated, none Hydration Status: adequate Shant Kolb MD Aug 02, 2018 14:35
--- NOTE | 2018-08-02 14:36 | General Progress Note ---
Assessment/Plan Status: stable Assessment/Plan # Anemia of iron deficiency due to underlying chronic medical issues, multifactorial. --> Anemia w/u has been reviewed. Ferritin at 74 --> No evidence of hemolysis is noted, peripheral smear has been reviewed. --> Hgb goal >7. Transfuse prn. --> IV iron x5 days # Leukocytosis. Likely related to underlying infection versus reactive process. --> Peripheral has been reviewed, no blasts noted --> Medications have been reviewed --> Imaging has been reviewed. CXR shows Suboptimal positioning. No interval consolidation, overt edema or other acute cardiopulmonary findings. --> Blood cultures are pending, urine culture shows gram negative bacteria --> Has been started on abx, empiric treatment # Upper GI vomiting bleed. GI is following, appreciate recs. # Trach and PEG. GREATLY APPRECIATE CONSULTATION. Subjective Date patient seen: Aug 02, 2018 ROS Limited/Unobtainable: Yes Hematologic/Lymphatic: Reports: anemia Allergies: Coded Allergies: NO KNOWN DRUG ALLERGIES (Verified Allergy, Unknown, 09/11/16) Subjective PICC lie placement for today. H/H stable. Objective Last 24 Hour Vital Signs Date Time Temp Pulse Resp B/P (MAP) Pulse Ox O2 Delivery O2 Flow Rate FiO2 08/02/18 12:35 75 16 40 08/02/18 12:00 97.9 78 16 121/66 (84) 100 08/02/18 12:00 72 08/02/18 12:00 40 08/02/18 12:00 Mechanical Ventilator 08/02/18 11:53 75 16 100 Mechanical Ventilator 40 08/02/18 11:43 40 08/02/18 11:43 71 16 100 Mechanical Ventilator 40 08/02/18 11:42 72 16 40 08/02/18 08:30 78 18 40 08/02/18 08:00 40 08/02/18 08:00 Mechanical Ventilator 08/02/18 08:00 79 08/02/18 08:00 98.1 78 16 137/70 (92) 100 08/02/18 07:32 79 18 100 Mechanical Ventilator 40 08/02/18 07:25 40 08/02/18 07:25 74 20 100 Mechanical Ventilator 40 08/02/18 07:23 74 17 40 08/02/18 05:30 72 16 40 08/02/18 04:00 80 08/02/18 04:00 97.7 80 16 129/70 (89) 100 08/02/18 04:00 40 08/02/18 04:00 Mechanical Ventilator 08/02/18 03:31 96 21 100 Mechanical Ventilator 40 08/02/18 03:29 89 19 40 08/02/18 03:20 89 19 98 Mechanical Ventilator 40 08/02/18 01:30 86 22 40 08/02/18 00:00 75 08/02/18 00:00 98.2 76 16 134/72 (92) 100 08/02/18 00:00 Mechanical Ventilator 08/01/18 23:28 88 26 40 08/01/18 23:26 92 28 100 Mechanical Ventilator 40 08/01/18 23:15 88 26 98 Mechanical Ventilator 40 08/01/18 21:09 84 22 40 08/01/18 20:00 Mechanical Ventilator 08/01/18 20:00 97.9 78 16 110/65 (80) 100 08/01/18 20:00 40 08/01/18 20:00 77 08/01/18 19:20 82 16 40 08/01/18 16:44 74 16 40 08/01/18 16:28 79 08/01/18 16:00 Mechanical Ventilator 08/01/18 16:00 40 08/01/18 16:00 79 08/01/18 16:00 98.0 77 20 110/80 (90) 100 08/01/18 14:34 74 16 40 Intake and Output 08/01/18 08/02/18 19:00 07:00 Intake Total 350 ml 1530 ml Output Total 350 ml 700 ml Balance 0 ml 830 ml IV Total 350 ml 1530 ml Output Urine Total 350 ml 700 ml # Bowel Movements 1 2 Laboratory Tests 08/01/18 18:00: Stool Occult Blood [Pending] 08/02/18 04:30: White Blood Count 7.7, Red Blood Count 2.85L, Hemoglobin 7.7L, Hematocrit 23.5L , Mean Corpuscular Volume 82, Mean Corpuscular Hemoglobin 27.0, Mean Corpuscular Hemoglobin Concent 32.9, Red Cell Distribution Width 13.2, Platelet Count 244, Mean Platelet Volume 7.6, Neutrophils (%) (Auto) , Lymphocytes (%) ( Auto) , Monocytes (%) (Auto) , Eosinophils (%) (Auto) , Basophils (%) (Auto) , Sodium Level 138, Potassium Level 3.8, Chloride Level 108H, Carbon Dioxide Level 19L, Anion Gap 11, Blood Urea Nitrogen 29H, Creatinine 1.1, Estimat Glomerular Filtration Rate > 60, Glucose Level 116H, Hemoglobin A1c 5.4, Uric Acid 5.6, Calcium Level 8.7, Phosphorus Level 2.7, Magnesium Level 2.0, Iron Level 27L, Total Iron Binding Capacity 228L, Percent Iron Saturation 12L, Unsaturated Iron Binding 201, Ferritin 74, Total Bilirubin 0.3, Gamma Glutamyl Transpeptidase 34, Aspartate Amino Transf (AST/SGOT) 17, Alanine Aminotransferase (ALT/SGPT) 35, Alkaline Phosphatase 122H, C-Reactive Protein, Quantitative 5.1H, Pro-B-Type Natriuretic Peptide 207H, Total Protein 7.4, Albumin 2.5L, Globulin 4.9, Albumin/Globulin Ratio 0.5L, Vitamin B12 Level 1803H , Folate 53.6, Thyroid Stimulating Hormone (TSH) 1.737 Height (Feet): 5 Height (Inches): 8.00 Weight (Pounds): 135 Objective PHYSICAL EXAMINATION: VITAL SIGNS: Have been reviewed GENERAL: No acute distress. HEENT: Trach site is intact. CHEST: Bibasilar rales CARDIOVASCULAR: Regular rate and rhythm. GASTROINTESTINAL: Positive bowel sounds. G-tube site is intact. EXTREMITIES: + edema. NEUROLOGICAL: The patient does not follow neurological exam. Reflexes equal on both sides. No organomegaly. Nikos Nath MD Aug 02, 2018 14:36
--- NOTE | 2018-08-02 14:36 | 48 Hour Post Anesthesia Eval ---
Post Anesthesia Evaluation Procedure: EGD with BX Date of Evaluation: Aug 02, 2018 Time of Evaluation: 15:20 Blood Pressure Systolic: 136 0: 68 Pulse Rate: 74 Respiratory Rate: 20 Temperature (Fahrenheit): 97.6 O2 Sat by Pulse Oximetry: 97 Airway: other - tracheostomy Nausea: No Vomiting: No Pain Intensity: 1 Hydration Status: adequate Cardiopulmonary Status: stable Mental Status/LOC: patient returned to baseline Follow-up Care/Observations: n/a Post-Anesthesia Complications: none Follow-up care needed: N/A Shant Kolb MD Aug 02, 2018 14:36
[2018-08-02 16:00] VITALS: BP 100/62
--- NOTE | 2018-08-02 19:07 | Endoscopy Procedure Note ---
Endoscopy Procedure Note General Indication for Procedure: GIB Procedures Performed: EGD Operative Findings/Diagnosis: GERD, diffuse ulcerative esophagitis, peptic esophageal stricture Specimen: yes Pt Tolerated Procedure Well: Yes Estimated Blood Loss: none Anesthesia Anesthesiologist: see report Anesthesia: MAC Medications Medication Given: see anesthesia record Inserted Devices Implant(s) used?: No GI Core Measures 50 yrs or older w/o bx or poly: Not Applicable 10yrs. F/U not recommended: Not Applicable If not recommended, why?: Ritu Ayala MD Aug 02, 2018 19:07
--- NOTE | 2018-08-02 19:09 | Brief Operative Note ---
Immediate Post Operative Note Operative Note Chief Complaint: EGD Pre-op Diagnosis: GIB Procedure: EGD, Bx Post-op Diagnosis: Diffuse ulcerative GERD, Peptic esophageal stricture. Surgeon: brendon Anesthesiologist: see report Anesthesia: MAC, moderate sedation Specimen: yes Complications: none Fluids: recorded Estimated Blood Loss: none Drains: none Implant(s) used?: No Ritu Ayala MD Aug 02, 2018 19:09
[2018-08-02 20:00] VITALS: BP 107/61
[2018-08-02] MEDS: Dyna-Hex 2% Top Sol 2oz TOPIC SCH (20:33)
--- NOTE | 2018-08-02 22:15 | Operative Note - Dictated ---
DATE OF OPERATION: 08/02/2018 GASTROENTEROLOGY PROCEDURE REPORT PROCEDURE: Upper gastroendoscopy with biopsy. SURGEON: Ritu Ayala M.D. ANESTHESIA: Please see the separate anesthesiologist notes for details. PRE-ENDOSCOPIC DIAGNOSIS: Upper gastrointestinal bleeding. POST-ENDOSCOPIC DIAGNOSES: 1. Diffuse ulcerative esophagitis. 2. Peptic esophageal stricture. DESCRIPTION OF PROCEDURE: The procedure could not be explained to the patient since he has no capacity and there is no family available and the conservators were not reachable. The procedure was therefore done based on an emergency basis to save life. The patient was then sedated and a diagnostic upper endoscope was introduced through the oropharynx. In the esophagus, diffuse ulcerative esophagitis was seen and in the distal esophagus, there is a small peptic esophageal stricture, which probably was elevated with diagnostic endoscope. The remainder of the upper gastrointestinal examination was notable for the gastrostomy, which was inspected. Biopsies of the mid esophagus were sent to pathology for review. The endoscope was removed and the patient was sent to recovery in good condition. COMPLICATIONS: None. RECOMMENDATIONS: 1. Resume tube feeding. 2. Proton pump inhibitor. 3. Follow up biopsy results. Ritu Ayala M.D. DR: ALBERTO JOB#: [id number] CC:
[2018-08-03] VITALS: BP 117/55
[2018-08-03] MEDS: Albuterol ud Inhalation HHN SCH ×3 (00:35→07:28)
[2018-08-03 04:00] VITALS: BP 124/61
[2018-08-03 05:38] LABS: BASOPHILS % (AUTO) 1.1 % (0.0-2.0); EOSINOPHILS % (AUTO) 4.1 % (0.0-3.0); HEMATOCRIT 24.3 % (42.0-52.0); HEMOGLOBIN 8.5 G/DL (14.2-18.0); LYMPHOCYTES % (AUTO) 22.3 % (20.0-45.0); MEAN CORPUSCULAR VOLUME 84 FL (80-99); MONOCYTES % (AUTO) 11.7 % (1.0-10.0); NEUTROPHILS % (AUTO) 60.7 % (45.0-75.0); PLATELET COUNT 221 K/UL (150-450); RED CELL DISTRIBUTION WIDTH 13.2 % (11.6-14.8); WHITE BLOOD COUNT 6.8 K/UL (4.8-10.8)
[2018-08-03 06:02] LABS: ALANINE AMINOTRANSFERASE 29 U/L (12-78); ALBUMIN 2.5 G/DL (3.4-5.0); ALBUMIN/GLOBULIN RATIO 0.5 (1.0-2.7); ALKALINE PHOSPHATASE 109 U/L (46-116); ANION GAP 8 mmol/L (5-15); ASPARTATE AMINO TRANSFERASE 9 U/L (15-37); BILIRUBIN,TOTAL 0.2 MG/DL (0.2-1.0); BLOOD UREA NITROGEN 21 mg/dL (7-18); CALCIUM 8.7 MG/DL (8.5-10.1); CARBON DIOXIDE 20 MMOL/L (21-32); CHLORIDE 112 MMOL/L (98-107); CREATININE 1.1 MG/DL (0.55-1.30); PHOSPHORUS 3.1 MG/DL (2.5-4.9); POTASSIUM 4.1 MMOL/L (3.5-5.1); SODIUM 140 MMOL/L (136-145)
[2018-08-03 08:00] VITALS: BP 96/67
[2018-08-03] MEDS: Pantoprazole Inj IVP SCH (08:32)
[2018-08-03] MEDS: Cefepime HCl 1 GM in D5W 55 ML IVPB SCH (08:32)
--- NOTE | 2018-08-03 09:04 | Consultation ---
History of Present Illness General Date patient seen: Aug 03, 2018 Chief Complaint: Gastrointestinal Bleed Reason for Consultation: UTI Present Illness HPI Mr. Huffman is a 67 yo male who is vent dependent and was brought to the ED on 07/31/18 with GIB. He was found to have diffuse ulcerative esophagitis with a peptic esophageal stricture on EGD 08/02/18. In the Ed he was noted to have leukocytosis but was afebrile. He was found to have UTI but the sputum culture was negative despite increased secretions. History obtained from the chart as the patient is not verbal. ID was consulted for UTI PMHx/PSHx: Constipation Chronic respiratory failure, Hypothyroidism GERD Hypertension C. diff Dysphagia, Esophagitis GI bleed Anemia. Trached vent depeendent PEG SocHx Unable to obtain as patient not verbal FamHx Unable to obtain as patient not verbal Allergies: Coded Allergies: NO KNOWN DRUG ALLERGIES (Verified Allergy, Unknown, 09/11/16) Medication History Scheduled Docusate Sodium* (Docusate Sodium*), 100 MG GT DAILY, (Reported) Levothyroxine Sodium* (Levothyroxine Sodium*), 50 MCG GT DAILY, (Reported) Magnesium Hydroxide* (Milk Of Magnesia*), 30 ML GT HS, (Reported) Multivitamin Liquid* (Multi-Delyn*), 15 ML GT DAILY, (Reported) Omeprazole (Omeprazole), 20 MG ORAL DAILY, (Reported) Sucralfate* (Carafate*), 1 GM GT FOUR TIMES A DAY, (Reported) Scheduled PRN Acetaminophen (Acetaminophen), 640 MG GT Q4HR PRN for Prn Headache/Temp > 101, ( Reported) Bisacodyl (Dulcolax), 10 MG RC NEEDED PRN for IF MOM INEFFECTIVE, (Reported) Na Phos,M-B/Na Phos,Di-Ba* (Fleet Enema*), 133 ML RECTAL QOD PRN for IF DUCOLAX INEFFETIVE, (Reported) Miscellaneous Medications Unable to Obtain Medications (Unable To Obtain Meds), (Reported) Patient History Healthcare decision maker N/A Resuscitation status Full Code Advanced Directive on File No Review of Systems ROS Narrative Unable to obtain as patient not verbal Physical Exam Last 24 Hour Vital Signs Date Time Temp Pulse Resp B/P (MAP) Pulse Ox O2 Delivery O2 Flow Rate FiO2 08/03/18 08:00 40 08/03/18 08:00 98.0 89 17 96/67 (77) 100 08/03/18 07:38 86 18 100 Mechanical Ventilator 40 08/03/18 07:28 40 08/03/18 07:28 74 18 100 Mechanical Ventilator 40 08/03/18 07:28 71 18 40 08/03/18 05:17 69 17 40 08/03/18 04:00 Mechanical Ventilator 08/03/18 04:00 81 08/03/18 04:00 40 08/03/18 04:00 98.2 87 20 124/61 (82) 100 08/03/18 03:14 90 18 100 Mechanical Ventilator 40 08/03/18 03:07 77 16 100 Mechanical Ventilator 40 08/03/18 03:07 40 08/03/18 03:06 77 16 40 08/03/18 00:41 79 16 40 08/03/18 00:00 94 08/03/18 00:00 98.6 90 21 117/55 (75) 99 08/03/18 00:00 40 08/03/18 00:00 Mechanical Ventilator 08/02/18 23:40 80 16 100 Mechanical Ventilator 40 08/02/18 23:29 81 16 100 Mechanical Ventilator 40 08/02/18 23:29 76 16 40 08/02/18 23:29 40 08/02/18 20:44 80 16 40 08/02/18 20:00 98.2 86 23 107/61 (76) 99 08/02/18 20:00 83 08/02/18 20:00 40 08/02/18 20:00 Mechanical Ventilator 08/02/18 19:05 83 16 100 Mechanical Ventilator 40 08/02/18 18:54 40 08/02/18 18:53 78 16 100 Mechanical Ventilator 40 08/02/18 18:52 78 16 40 08/02/18 17:01 77 16 40 08/02/18 17:00 Mechanical Ventilator 08/02/18 16:00 62 08/02/18 16:00 97.5 70 16 100/62 (75) 100 08/02/18 16:00 40 08/02/18 15:45 78 16 100 Mechanical Ventilator 40 08/02/18 15:37 73 16 100 Mechanical Ventilator 40 08/02/18 15:37 40 08/02/18 15:37 74 16 40 08/02/18 14:36 74 20 97 08/02/18 14:35 86 20 99 08/02/18 12:35 75 16 40 08/02/18 12:00 97.9 78 16 121/66 (84) 100 08/02/18 12:00 72 08/02/18 12:00 40 08/02/18 12:00 Mechanical Ventilator 08/02/18 11:53 75 16 100 Mechanical Ventilator 40 08/02/18 11:43 40 08/02/18 11:43 71 16 100 Mechanical Ventilator 40 08/02/18 11:42 72 16 40 Intake and Output 08/02/18 08/03/18 19:00 07:00 Intake Total 1330 ml 1560 ml Output Total 625 ml 400 ml Balance 705 ml 1160 ml Free Water 30 ml IV Total 960 ml 990 ml Tube Feeding 120 ml 510 ml Blood Product 250 ml 30 ml Output Urine Total 625 ml 400 ml # Bowel Movements 4 5 Laboratory Tests Test 08/03/18 03:45 White Blood Count 6.8 K/UL (4.8-10.8) Red Blood Count 2.90 M/UL (4.70-6.10) L Hemoglobin 8.5 G/DL (14.2-18.0) L Hematocrit 24.3 % (42.0-52.0) L Mean Corpuscular Volume 84 FL (80-99) Mean Corpuscular Hemoglobin 29.5 PG (27.0-31.0) Mean Corpuscular Hemoglobin Concent 35.1 G/DL (32.0-36.0) Red Cell Distribution Width 13.2 % (11.6-14.8) Platelet Count 221 K/UL (150-450) Mean Platelet Volume 7.2 FL (6.5-10.1) Neutrophils (%) (Auto) 60.7 % (45.0-75.0) Lymphocytes (%) (Auto) 22.3 % (20.0-45.0) Monocytes (%) (Auto) 11.7 % (1.0-10.0) H Eosinophils (%) (Auto) 4.1 % (0.0-3.0) H Basophils (%) (Auto) 1.1 % (0.0-2.0) Sodium Level 140 MMOL/L (136-145) Potassium Level 4.1 MMOL/L (3.5-5.1) Chloride Level 112 MMOL/L (98-107) H Carbon Dioxide Level 20 MMOL/L (21-32) L Anion Gap 8 mmol/L (5-15) Blood Urea Nitrogen 21 mg/dL (7-18) H Creatinine 1.1 MG/DL (0.55-1.30) Estimat Glomerular Filtration Rate > 60 mL/min (>60) Glucose Level 119 MG/DL (74-106) H Calcium Level 8.7 MG/DL (8.5-10.1) Phosphorus Level 3.1 MG/DL (2.5-4.9) Magnesium Level 2.0 MG/DL (1.8-2.4) Total Bilirubin 0.2 MG/DL (0.2-1.0) Aspartate Amino Transf (AST/SGOT) 9 U/L (15-37) L Alanine Aminotransferase (ALT/SGPT) 29 U/L (12-78) Alkaline Phosphatase 109 U/L (46-116) Total Protein 7.3 G/DL (6.4-8.2) Albumin 2.5 G/DL (3.4-5.0) L Globulin 4.8 g/dL Albumin/Globulin Ratio 0.5 (1.0-2.7) L Height (Feet): 5 Height (Inches): 8.00 Weight (Pounds): 135 Medications Current Medications Medications (Trade) Dose Ordered Sig/Wanda Route PRN Reason Start Time Stop Time Status Last Admin Dose Admin Acetaminophen (Tylenol) 650 mg Q4H PRN GT Mild Pain/Temp > 100.5 08/01/18 02:00 08/31/18 01:59 Albuterol Sulfate (Proventil) 2.5 mg Q4HRT HHN 08/01/18 23:00 08/06/18 22:59 08/03/18 07:28 Cefepime HCl 1 gm/ Dextrose 55 ml @ 110 mls/hr EVERY 12 HOURS IVPB 08/01/18 22:00 08/08/18 21:59 08/03/18 08:32 Chlorhexidine Gluconate (Jasmin-Hex 2%) 1 applic DAILY@1999 TOPIC 08/02/18 20:00 09/01/18 19:59 08/02/18 20:33 Dextrose/ Electrolytes 1,000 ml @ 75 mls/hr [id number] IV 08/01/18 13:00 08/31/18 12:59 08/02/18 20:35 Heparin Sodium/ Sodium Chloride (Heparin 2000 units/Ns 1000ml premix) 2,000 unit ONCE PRN INJ picc line placement 08/02/18 11:30 08/03/18 23:59 Iron Sucrose 100 mg/Sodium Chloride 60 ml @ 240 mls/hr BEDTIME IV 08/03/18 21:00 08/07/18 21:14 Lidocaine HCl (Xylocaine 1% 30ml) 30 ml ONCE PRN INJ picc line placement 08/02/18 11:30 08/03/18 23:59 Pantoprazole (Protonix) 40 mg Q12HR IVP 08/01/18 21:00 08/31/18 08:59 08/03/18 08:32 Vancomycin HCl (Vanco rx to dose) 1 ea DAILY PRN MISC Per rx protocol 08/01/18 20:45 08/31/18 20:44 Vancomycin HCl 500 mg/Dextrose 110 ml @ 110 mls/hr Q12HR@1000,2200 IVPB 08/02/18 10:00 08/07/18 09:59 08/02/18 22:18 Objective Narrative Gen: NAD. Trached HEENT: NCAT, MMM, eyes open not following No Oral lesion, no scleral icterus NECK: full range of motion, supple, no meningismus, No LAD, No JVD LUNGS: CTAB, No W/C, No Accessory muscle use CARDS: RRR, S1, S2, No M/R/G, ABD: Soft, NT, ND, No R/G, + BS, No HSM, No Masses, PEG (No E/P) : Deferred Ext: C/C/E, Pulses 2+ B/L (DP, Rad): NEURO: A/O x 0, Strength and Sensation Grossly intact PSYCH: mood/affect normal SKIN: Warm not rashes Assessment/Plan Assessment/Plan 67 yo male who is vent dependent and was brought to the ED on 07/31/18 with GIB and increased sputum. UTI UA positive 08/01/18 UCx Proteus Sen to erta, zosyn and bactrim 08/02/18 UCx GNR Increase oral secretions No evidence for PNA on CXR Leukocytosis up to 13 Now resolved UTI Afebrile Hx Constipation Chronic respiratory failure, Hypothyroidism GERD Hypertension Hx C. diff Dysphagia, Esophagitis GI bleed Anemia. Trached vent depeendent PEG Plan - Continue D/C Cefepime and Vancomycin - Start Bactrim PO/NG DS BID #09/16 (End date 08/09/18) - Monitor CBC and temps Thank you for this consult. We will continue to follow the patient during this hospitalization. John Fiore MD Aug 03, 2018 09:04
--- NOTE | 2018-08-03 09:19 | Pulmonology Progress Note ---
Assessment/Plan Assessment/Plan ASSESSMENT GI hemorrhage/upper GI bleeding s/p upper endoscopy 07/13 diffuse ulcerative esophagitis peptic esophageal stricture anemia of iron deficiency severe protein calorie malnutrition VDRF with trach status, acute and chronic sepsis UTI Alzheimer dementia Hypothyroidism Hypokalemia - resolved KAYLENE due to prerenal azotemia 2 to dehydration -improving PLAN OF CARE LUIS vent support ,pulmonary toilet no evidence of pneumonia on CXR baseline ABG and titrate settings as needed follow-up with CXR strict aspiration precaution abx, ID follows urine culture + Proteus , repeated urine culture pending, sputum culture negative status post EGD biopsy pending on PPI GI follows dietary eval IVF, monitor renal parameters ,electrolytes correct electrolytes prn nephro follows monitor H&H with goal to keep hemoglobin above 7 anemia workup consistent with ABHI heme follows on IV Venofer x5 days supportive care case discussed and evaluated by supervising physician Subjective Allergies: Coded Allergies: NO KNOWN DRUG ALLERGIES (Verified Allergy, Unknown, 09/11/16) Subjective leukocytosis resolved ,afebrile no signs of respiratory distress on current settings status post 1 u PRBC, HH at baseline Objective Last 24 Hour Vital Signs Date Time Temp Pulse Resp B/P (MAP) Pulse Ox O2 Delivery O2 Flow Rate FiO2 08/03/18 08:00 40 08/03/18 08:00 98.0 89 17 96/67 (77) 100 08/03/18 07:38 86 18 100 Mechanical Ventilator 40 08/03/18 07:28 40 08/03/18 07:28 74 18 100 Mechanical Ventilator 40 08/03/18 07:28 71 18 40 08/03/18 05:17 69 17 40 08/03/18 04:00 Mechanical Ventilator 08/03/18 04:00 81 08/03/18 04:00 40 08/03/18 04:00 98.2 87 20 124/61 (82) 100 08/03/18 03:14 90 18 100 Mechanical Ventilator 40 08/03/18 03:07 77 16 100 Mechanical Ventilator 40 08/03/18 03:07 40 08/03/18 03:06 77 16 40 08/03/18 00:41 79 16 40 08/03/18 00:00 94 08/03/18 00:00 98.6 90 21 117/55 (75) 99 08/03/18 00:00 40 08/03/18 00:00 Mechanical Ventilator 08/02/18 23:40 80 16 100 Mechanical Ventilator 40 08/02/18 23:29 81 16 100 Mechanical Ventilator 40 08/02/18 23:29 76 16 40 08/02/18 23:29 40 08/02/18 20:44 80 16 40 08/02/18 20:00 98.2 86 23 107/61 (76) 99 08/02/18 20:00 83 08/02/18 20:00 40 08/02/18 20:00 Mechanical Ventilator 08/02/18 19:05 83 16 100 Mechanical Ventilator 40 08/02/18 18:54 40 08/02/18 18:53 78 16 100 Mechanical Ventilator 40 08/02/18 18:52 78 16 40 08/02/18 17:01 77 16 40 08/02/18 17:00 Mechanical Ventilator 08/02/18 16:00 62 08/02/18 16:00 97.5 70 16 100/62 (75) 100 08/02/18 16:00 40 08/02/18 15:45 78 16 100 Mechanical Ventilator 40 08/02/18 15:37 73 16 100 Mechanical Ventilator 40 08/02/18 15:37 40 08/02/18 15:37 74 16 40 08/02/18 14:36 74 20 97 08/02/18 14:35 86 20 99 08/02/18 12:35 75 16 40 08/02/18 12:00 97.9 78 16 121/66 (84) 100 08/02/18 12:00 72 08/02/18 12:00 40 08/02/18 12:00 Mechanical Ventilator 08/02/18 11:53 75 16 100 Mechanical Ventilator 40 08/02/18 11:43 40 08/02/18 11:43 71 16 100 Mechanical Ventilator 40 08/02/18 11:42 72 16 40 Intake and Output 08/02/18 08/03/18 19:00 07:00 Intake Total 1330 ml 1560 ml Output Total 625 ml 400 ml Balance 705 ml 1160 ml Free Water 30 ml IV Total 960 ml 990 ml Tube Feeding 120 ml 510 ml Blood Product 250 ml 30 ml Output Urine Total 625 ml 400 ml # Bowel Movements 4 5 General Appearance: cachetic, other - bedridden lethargic vent depenedent male in NAD on vent AC 600-40%-16 HEENT: normocephalic, atraumatic, anicteric, status post trach - Portex#8, secretions moderate, yellow, thin Respiratory/Chest: lungs clear Cardiovascular: normal rate - SR on tele , other - RUE PICC intatc Abdomen: normal bowel sounds, soft, non tender, non distended, other - G tube Neurologic/Psychiatric: abnormal gait - bedridden Musculoskeletal: atrophy - BLE Microbiology Date/Time Source Procedure Growth Status 08/02/18 01:30 Sputum Gram Stain - Final Resulted 08/02/18 01:30 Sputum Sputum Culture - Preliminary NORMAL UPPER RESPIRATORY ALLYSON AT 24 ... Resulted 08/02/18 01:30 Indwelling Cath Urine Culture - Preliminary Gram Negative Bacillus 1 Mixed Urogenital Contaminants Resulted 08/01/18 00:30 Urine,Clean Catch Urine Culture - Preliminary Proteus Mirabilis Resulted 08/01/18 00:30 Rectum - Final NO CARBAPENEM-RESISTANT ENTEROBACTERI... Complete 08/01/18 00:30 Rectum VRE Culture - Final Enterococcus Faecalis - Vre Complete Laboratory Tests 08/03/18 03:45: White Blood Count 6.8, Red Blood Count 2.90L, Hemoglobin 8.5L, Hematocrit 24.3L , Mean Corpuscular Volume 84, Mean Corpuscular Hemoglobin 29.5, Mean Corpuscular Hemoglobin Concent 35.1, Red Cell Distribution Width 13.2, Platelet Count 221, Mean Platelet Volume 7.2, Neutrophils (%) (Auto) 60.7, Lymphocytes (% ) (Auto) 22.3, Monocytes (%) (Auto) 11.7H, Eosinophils (%) (Auto) 4.1H, Basophils (%) (Auto) 1.1, Sodium Level 140, Potassium Level 4.1, Chloride Level 112H, Carbon Dioxide Level 20L, Anion Gap 8, Blood Urea Nitrogen 21H, Creatinine 1.1, Estimat Glomerular Filtration Rate > 60, Glucose Level 119H, Calcium Level 8.7, Phosphorus Level 3.1, Magnesium Level 2.0, Total Bilirubin 0.2, Aspartate Amino Transf (AST/SGOT) 9L, Alanine Aminotransferase (ALT/SGPT) 29, Alkaline Phosphatase 109, Total Protein 7.3, Albumin 2.5L, Globulin 4.8, Albumin/Globulin Ratio 0.5L Current Medications Medications (Trade) Dose Ordered Sig/Wanda Route PRN Reason Start Time Stop Time Status Last Admin Dose Admin Acetaminophen (Tylenol) 650 mg Q4H PRN GT Mild Pain/Temp > 100.5 08/01/18 02:00 08/31/18 01:59 Albuterol Sulfate (Proventil) 2.5 mg Q4HRT HHN 08/01/18 23:00 08/06/18 22:59 08/03/18 07:28 Cefepime HCl 1 gm/ Dextrose 55 ml @ 110 mls/hr EVERY 12 HOURS IVPB 08/01/18 22:00 08/08/18 21:59 08/03/18 08:32 Chlorhexidine Gluconate (Jasmin-Hex 2%) 1 applic DAILY@2000 TOPIC 08/02/18 20:00 09/01/18 19:59 08/02/18 20:33 Dextrose/ Electrolytes 1,000 ml @ 75 mls/hr [id number] IV 08/01/18 13:00 08/31/18 12:59 08/02/18 20:35 Heparin Sodium/ Sodium Chloride (Heparin 2000 units/Ns 1000ml premix) 2,000 unit ONCE PRN INJ picc line placement 08/02/18 11:30 08/03/18 23:59 Iron Sucrose 100 mg/Sodium Chloride 60 ml @ 240 mls/hr BEDTIME IV 08/03/18 21:00 08/07/18 21:14 Lidocaine HCl (Xylocaine 1% 30ml) 30 ml ONCE PRN INJ picc line placement 08/02/18 11:30 08/03/18 23:59 Pantoprazole (Protonix) 40 mg Q12HR IVP 08/01/18 21:00 08/31/18 08:59 08/03/18 08:32 Trimethoprim/ Sulfamethoxazole (Bactrim-DS) 1 tab TWICE A DAY ORAL 08/03/18 09:15 08/09/18 17:59 UNV Vancomycin HCl (Vanco rx to dose) 1 ea DAILY PRN MISC Per rx protocol 08/01/18 20:45 08/31/18 20:44 Vancomycin HCl 500 mg/Dextrose 110 ml @ 110 mls/hr Q12HR@1000,2200 IVPB 08/02/18 10:00 08/07/18 09:59 08/02/18 22:18 Amina Garcia DYEING MACHINE TENDER Aug 03, 2018 09:19
[2018-08-03] MEDS ORDERED: Albuterol/Ipratropium 3ml neb HHN PRN (09:30)
[2018-08-03] MEDS ORDERED: Bactrim-DS 1 tab ORAL SCH (10:00)
--- NOTE | 2018-08-03 11:24 | Nephrology Progress Note ---
Assessment/Plan Problem List: (1) Tracheostomy dependence (2) Hypokalemia (3) GI bleed Assessment GI bleed Anemia low Iron Low K resolved Plan DC IV - GT feeding K supplement Gastric support IV Iron Per GI Subjective ROS Limited/Unobtainable: Yes Objective Objective Last 24 Hour Vital Signs Date Time Temp Pulse Resp B/P (MAP) Pulse Ox O2 Delivery O2 Flow Rate FiO2 08/03/18 09:14 72 16 40 08/03/18 08:00 40 08/03/18 08:00 Mechanical Ventilator 08/03/18 08:00 98.0 89 17 96/67 (77) 100 08/03/18 07:53 71 08/03/18 07:38 86 18 100 Mechanical Ventilator 40 08/03/18 07:28 40 08/03/18 07:28 74 18 100 Mechanical Ventilator 40 08/03/18 07:28 71 18 40 08/03/18 05:17 69 17 40 08/03/18 04:00 Mechanical Ventilator 08/03/18 04:00 81 08/03/18 04:00 40 08/03/18 04:00 98.2 87 20 124/61 (82) 100 08/03/18 03:14 90 18 100 Mechanical Ventilator 40 08/03/18 03:07 77 16 100 Mechanical Ventilator 40 08/03/18 03:07 40 08/03/18 03:06 77 16 40 08/03/18 00:41 79 16 40 08/03/18 00:00 94 08/03/18 00:00 98.6 90 21 117/55 (75) 99 08/03/18 00:00 40 08/03/18 00:00 Mechanical Ventilator 08/02/18 23:40 80 16 100 Mechanical Ventilator 40 08/02/18 23:29 81 16 100 Mechanical Ventilator 40 08/02/18 23:29 76 16 40 08/02/18 23:29 40 08/02/18 20:44 80 16 40 08/02/18 20:00 98.2 86 23 107/61 (76) 99 08/02/18 20:00 83 08/02/18 20:00 40 08/02/18 20:00 Mechanical Ventilator 08/02/18 19:05 83 16 100 Mechanical Ventilator 40 08/02/18 18:54 40 08/02/18 18:53 78 16 100 Mechanical Ventilator 40 08/02/18 18:52 78 16 40 08/02/18 17:01 77 16 40 08/02/18 17:00 Mechanical Ventilator 08/02/18 16:00 62 08/02/18 16:00 97.5 70 16 100/62 (75) 100 08/02/18 16:00 40 08/02/18 15:45 78 16 100 Mechanical Ventilator 40 08/02/18 15:37 73 16 100 Mechanical Ventilator 40 08/02/18 15:37 40 08/02/18 15:37 74 16 40 08/02/18 14:36 74 20 97 08/02/18 14:35 86 20 99 08/02/18 12:35 75 16 40 08/02/18 12:00 97.9 78 16 121/66 (84) 100 08/02/18 12:00 72 08/02/18 12:00 40 08/02/18 12:00 Mechanical Ventilator 08/02/18 11:53 75 16 100 Mechanical Ventilator 40 08/02/18 11:43 40 08/02/18 11:43 71 16 100 Mechanical Ventilator 40 08/02/18 11:42 72 16 40 Intake and Output 08/02/18 08/03/18 19:00 07:00 Intake Total 1330 ml 1560 ml Output Total 625 ml 400 ml Balance 705 ml 1160 ml Free Water 30 ml IV Total 960 ml 990 ml Tube Feeding 120 ml 510 ml Blood Product 250 ml 30 ml Output Urine Total 625 ml 400 ml # Bowel Movements 4 5 Laboratory Tests 08/03/18 03:45: White Blood Count 6.8, Red Blood Count 2.90L, Hemoglobin 8.5L, Hematocrit 24.3L , Mean Corpuscular Volume 84, Mean Corpuscular Hemoglobin 29.5, Mean Corpuscular Hemoglobin Concent 35.1, Red Cell Distribution Width 13.2, Platelet Count 221, Mean Platelet Volume 7.2, Neutrophils (%) (Auto) 60.7, Lymphocytes (% ) (Auto) 22.3, Monocytes (%) (Auto) 11.7H, Eosinophils (%) (Auto) 4.1H, Basophils (%) (Auto) 1.1, Sodium Level 140, Potassium Level 4.1, Chloride Level 112H, Carbon Dioxide Level 20L, Anion Gap 8, Blood Urea Nitrogen 21H, Creatinine 1.1, Estimat Glomerular Filtration Rate > 60, Glucose Level 119H, Calcium Level 8.7, Phosphorus Level 3.1, Magnesium Level 2.0, Total Bilirubin 0.2, Aspartate Amino Transf (AST/SGOT) 9L, Alanine Aminotransferase (ALT/SGPT) 29, Alkaline Phosphatase 109, Total Protein 7.3, Albumin 2.5L, Globulin 4.8, Albumin/Globulin Ratio 0.5L 08/03/18 09:00: Thyroid Stimulating Hormone (TSH) 2.377 Height (Feet): 5 Height (Inches): 8.00 Weight (Pounds): 135 General Appearance: no apparent distress Objective no change Sav Salvador MD Aug 03, 2018 11:24
[2018-08-03 12:00] VITALS: BP 111/64
--- NOTE | 2018-08-03 13:40 | General Progress Note ---
Assessment/Plan Status: stable Assessment/Plan # Anemia of iron deficiency due to underlying chronic medical issues, multifactorial. --> Anemia w/u has been reviewed. Ferritin at 74 --> No evidence of hemolysis is noted, peripheral smear has been reviewed. --> Hgb goal >7. Transfuse prn. --> IV iron x5 days # Leukocytosis. Likely related to underlying infection versus reactive process. --> WBC has improved/resolved --> Peripheral has been reviewed, no blasts noted --> Medications have been reviewed --> Imaging has been reviewed. CXR shows Suboptimal positioning. No interval consolidation, overt edema or other acute cardiopulmonary findings. --> Blood cultures are pending, urine culture shows gram negative bacteria --> Completed abx, empiric treatment # Upper GI vomiting bleed. GI is following, appreciate recs. # Trach and PEG. GREATLY APPRECIATE CONSULTATION. Subjective Date patient seen: Aug 03, 2018 ROS Limited/Unobtainable: Yes Hematologic/Lymphatic: Reports: anemia Allergies: Coded Allergies: NO KNOWN DRUG ALLERGIES (Verified Allergy, Unknown, 09/11/16) Subjective S/P blood tx, Hgb improved to 8.5. VS stable. Leukocytosis resolved. Objective Last 24 Hour Vital Signs Date Time Temp Pulse Resp B/P (MAP) Pulse Ox O2 Delivery O2 Flow Rate FiO2 08/03/18 13:01 76 16 40 08/03/18 12:15 Mechanical Ventilator 08/03/18 12:00 99.0 79 16 111/64 (80) 100 08/03/18 12:00 40 08/03/18 12:00 72 08/03/18 12:00 Mechanical Ventilator 08/03/18 11:30 77 16 40 08/03/18 09:14 72 16 40 08/03/18 08:00 40 08/03/18 08:00 Mechanical Ventilator 08/03/18 08:00 98.0 89 17 96/67 (77) 100 08/03/18 07:53 71 08/03/18 07:38 86 18 100 Mechanical Ventilator 40 08/03/18 07:28 40 08/03/18 07:28 74 18 100 Mechanical Ventilator 40 08/03/18 07:28 71 18 40 08/03/18 05:17 69 17 40 08/03/18 04:00 Mechanical Ventilator 08/03/18 04:00 81 08/03/18 04:00 40 08/03/18 04:00 98.2 87 20 124/61 (82) 100 08/03/18 03:14 90 18 100 Mechanical Ventilator 40 08/03/18 03:07 77 16 100 Mechanical Ventilator 40 08/03/18 03:07 40 08/03/18 03:06 77 16 40 08/03/18 00:41 79 16 40 08/03/18 00:00 94 08/03/18 00:00 98.6 90 21 117/55 (75) 99 08/03/18 00:00 40 08/03/18 00:00 Mechanical Ventilator 08/02/18 23:40 80 16 100 Mechanical Ventilator 40 08/02/18 23:29 81 16 100 Mechanical Ventilator 40 08/02/18 23:29 76 16 40 08/02/18 23:29 40 08/02/18 20:44 80 16 40 08/02/18 20:00 98.2 86 23 107/61 (76) 99 08/02/18 20:00 83 08/02/18 20:00 40 08/02/18 20:00 Mechanical Ventilator 08/02/18 19:05 83 16 100 Mechanical Ventilator 40 08/02/18 18:54 40 08/02/18 18:53 78 16 100 Mechanical Ventilator 40 08/02/18 18:52 78 16 40 08/02/18 17:01 77 16 40 08/02/18 17:00 Mechanical Ventilator 08/02/18 16:00 62 08/02/18 16:00 97.5 70 16 100/62 (75) 100 08/02/18 16:00 40 08/02/18 15:45 78 16 100 Mechanical Ventilator 40 08/02/18 15:37 73 16 100 Mechanical Ventilator 40 08/02/18 15:37 40 08/02/18 15:37 74 16 40 08/02/18 14:36 74 20 97 08/02/18 14:35 86 20 99 Intake and Output 08/02/18 08/03/18 19:00 07:00 Intake Total 1330 ml 1560 ml Output Total 625 ml 400 ml Balance 705 ml 1160 ml Free Water 30 ml IV Total 960 ml 990 ml Tube Feeding 120 ml 510 ml Blood Product 250 ml 30 ml Output Urine Total 625 ml 400 ml # Bowel Movements 4 5 Laboratory Tests 08/03/18 03:45: White Blood Count 6.8, Red Blood Count 2.90L, Hemoglobin 8.5L, Hematocrit 24.3L , Mean Corpuscular Volume 84, Mean Corpuscular Hemoglobin 29.5, Mean Corpuscular Hemoglobin Concent 35.1, Red Cell Distribution Width 13.2, Platelet Count 221, Mean Platelet Volume 7.2, Neutrophils (%) (Auto) 60.7, Lymphocytes (% ) (Auto) 22.3, Monocytes (%) (Auto) 11.7H, Eosinophils (%) (Auto) 4.1H, Basophils (%) (Auto) 1.1, Sodium Level 140, Potassium Level 4.1, Chloride Level 112H, Carbon Dioxide Level 20L, Anion Gap 8, Blood Urea Nitrogen 21H, Creatinine 1.1, Estimat Glomerular Filtration Rate > 60, Glucose Level 119H, Calcium Level 8.7, Phosphorus Level 3.1, Magnesium Level 2.0, Total Bilirubin 0.2, Aspartate Amino Transf (AST/SGOT) 9L, Alanine Aminotransferase (ALT/SGPT) 29, Alkaline Phosphatase 109, Total Protein 7.3, Albumin 2.5L, Globulin 4.8, Albumin/Globulin Ratio 0.5L 08/03/18 09:00: Thyroid Stimulating Hormone (TSH) 2.377 Height (Feet): 5 Height (Inches): 8.00 Weight (Pounds): 135 Objective PHYSICAL EXAMINATION: VITAL SIGNS: Have been reviewed GENERAL: No acute distress. HEENT: Trach site is intact. CHEST: Bibasilar rales CARDIOVASCULAR: Regular rate and rhythm. GASTROINTESTINAL: Positive bowel sounds. G-tube site is intact. EXTREMITIES: + edema. NEUROLOGICAL: The patient does not follow neurological exam. Reflexes equal on both sides. No organomegaly. Nikos Nath MD Aug 03, 2018 13:40
[2018-08-03] MEDS ORDERED: Tubing IV Blood Pump IV ONE (13:42)
[2018-08-03] MEDS ORDERED: NS 275ml ONE (13:42)
[2018-08-03] MEDS ORDERED: Tubing IV Secondary IV ONE (13:42)
[2018-08-03] MEDS ORDERED: D5W 275ml ONE (13:42)
[2018-08-03 16:12] VITALS: BP 113/56
--- NOTE | 2018-08-03 16:29 | General Progress Note ---
Assessment/Plan Problem List: (1) Alzheimer's dementia ICD Codes: G30.9 - Alzheimer's disease, unspecified SNOMED: 05701036 (2) Iron deficiency ICD Codes: E61.1 - Iron deficiency SNOMED: 99976853 Status: progressing Assessment/Plan afebrile no gi bleeding today moniter for gi bleeding check h/h dm no vomitting Subjective ROS Limited/Unobtainable: Yes Allergies: Coded Allergies: NO KNOWN DRUG ALLERGIES (Verified Allergy, Unknown, 09/11/16) Objective Last 24 Hour Vital Signs Date Time Temp Pulse Resp B/P (MAP) Pulse Ox O2 Delivery O2 Flow Rate FiO2 08/03/18 16:15 67 08/03/18 16:12 99.2 66 17 113/56 (75) 100 08/03/18 16:11 Mechanical Ventilator 08/03/18 16:08 40 08/03/18 14:48 71 17 40 08/03/18 13:01 76 16 40 08/03/18 12:15 Mechanical Ventilator 08/03/18 12:00 99.0 79 16 111/64 (80) 100 08/03/18 12:00 40 08/03/18 12:00 72 08/03/18 12:00 Mechanical Ventilator 08/03/18 11:30 77 16 40 08/03/18 09:14 72 16 40 08/03/18 08:00 40 08/03/18 08:00 Mechanical Ventilator 08/03/18 08:00 98.0 89 17 96/67 (77) 100 08/03/18 07:53 71 08/03/18 07:38 86 18 100 Mechanical Ventilator 40 08/03/18 07:28 40 08/03/18 07:28 74 18 100 Mechanical Ventilator 40 08/03/18 07:28 71 18 40 08/03/18 05:17 69 17 40 08/03/18 04:00 Mechanical Ventilator 08/03/18 04:00 81 08/03/18 04:00 40 08/03/18 04:00 98.2 87 20 124/61 (82) 100 08/03/18 03:14 90 18 100 Mechanical Ventilator 40 08/03/18 03:07 77 16 100 Mechanical Ventilator 40 08/03/18 03:07 40 08/03/18 03:06 77 16 40 08/03/18 00:41 79 16 40 08/03/18 00:00 94 08/03/18 00:00 98.6 90 21 117/55 (75) 99 08/03/18 00:00 40 08/03/18 00:00 Mechanical Ventilator 08/02/18 23:40 80 16 100 Mechanical Ventilator 40 08/02/18 23:29 81 16 100 Mechanical Ventilator 40 08/02/18 23:29 76 16 40 08/02/18 23:29 40 08/02/18 20:44 80 16 40 08/02/18 20:00 98.2 86 23 107/61 (76) 99 08/02/18 20:00 83 08/02/18 20:00 40 08/02/18 20:00 Mechanical Ventilator 08/02/18 19:05 83 16 100 Mechanical Ventilator 40 08/02/18 18:54 40 08/02/18 18:53 78 16 100 Mechanical Ventilator 40 08/02/18 18:52 78 16 40 08/02/18 17:01 77 16 40 08/02/18 17:00 Mechanical Ventilator Intake and Output 08/02/18 08/03/18 19:00 07:00 Intake Total 1330 ml 1630 ml Output Total 625 ml 400 ml Balance 705 ml 1230 ml Free Water 30 ml IV Total 960 ml 990 ml Tube Feeding 120 ml 580 ml Blood Product 250 ml 30 ml Output Urine Total 625 ml 400 ml # Bowel Movements 4 5 Laboratory Tests 08/03/18 03:45: White Blood Count 6.8, Red Blood Count 2.90L, Hemoglobin 8.5L, Hematocrit 24.3L , Mean Corpuscular Volume 84, Mean Corpuscular Hemoglobin 29.5, Mean Corpuscular Hemoglobin Concent 35.1, Red Cell Distribution Width 13.2, Platelet Count 221, Mean Platelet Volume 7.2, Neutrophils (%) (Auto) 60.7, Lymphocytes (% ) (Auto) 22.3, Monocytes (%) (Auto) 11.7H, Eosinophils (%) (Auto) 4.1H, Basophils (%) (Auto) 1.1, Sodium Level 140, Potassium Level 4.1, Chloride Level 112H, Carbon Dioxide Level 20L, Anion Gap 8, Blood Urea Nitrogen 21H, Creatinine 1.1, Estimat Glomerular Filtration Rate > 60, Glucose Level 119H, Calcium Level 8.7, Phosphorus Level 3.1, Magnesium Level 2.0, Total Bilirubin 0.2, Aspartate Amino Transf (AST/SGOT) 9L, Alanine Aminotransferase (ALT/SGPT) 29, Alkaline Phosphatase 109, Total Protein 7.3, Albumin 2.5L, Globulin 4.8, Albumin/Globulin Ratio 0.5L 08/03/18 09:00: Thyroid Stimulating Hormone (TSH) 2.377 Height (Feet): 5 Height (Inches): 8.00 Weight (Pounds): 135 Respiratory/Chest: lungs clear Abdomen: soft Sven Johns MD Aug 03, 2018 16:29
--- NOTE | 2018-08-03 17:20 | General Progress Note ---
Assessment/Plan Assessment/Plan Assessment - Dark stools/ Anemia - severe GERD with stricture - OBS - Resp failure, trach - s/p GT - Contractures Recommendations - TF - IVF - PPI - Follow H&H Subjective Allergies: Coded Allergies: NO KNOWN DRUG ALLERGIES (Verified Allergy, Unknown, 09/11/16) Subjective Seen this am tolerating TF d/w RN Objective Last 24 Hour Vital Signs Date Time Temp Pulse Resp B/P (MAP) Pulse Ox O2 Delivery O2 Flow Rate FiO2 08/03/18 16:54 74 23 40 08/03/18 16:15 67 08/03/18 16:12 99.2 66 17 113/56 (75) 100 08/03/18 16:11 Mechanical Ventilator 08/03/18 16:08 40 08/03/18 14:48 71 17 40 08/03/18 13:01 76 16 40 08/03/18 12:15 Mechanical Ventilator 08/03/18 12:00 99.0 79 16 111/64 (80) 100 08/03/18 12:00 40 08/03/18 12:00 72 08/03/18 12:00 Mechanical Ventilator 08/03/18 11:30 77 16 40 08/03/18 09:14 72 16 40 08/03/18 08:00 40 08/03/18 08:00 Mechanical Ventilator 08/03/18 08:00 98.0 89 17 96/67 (77) 100 08/03/18 07:53 71 08/03/18 07:38 86 18 100 Mechanical Ventilator 40 08/03/18 07:28 40 08/03/18 07:28 74 18 100 Mechanical Ventilator 40 08/03/18 07:28 71 18 40 08/03/18 05:17 69 17 40 08/03/18 04:00 Mechanical Ventilator 08/03/18 04:00 81 08/03/18 04:00 40 08/03/18 04:00 98.2 87 20 124/61 (82) 100 08/03/18 03:14 90 18 100 Mechanical Ventilator 40 08/03/18 03:07 77 16 100 Mechanical Ventilator 40 08/03/18 03:07 40 08/03/18 03:06 77 16 40 08/03/18 00:41 79 16 40 08/03/18 00:00 94 08/03/18 00:00 98.6 90 21 117/55 (75) 99 08/03/18 00:00 40 08/03/18 00:00 Mechanical Ventilator 08/02/18 23:40 80 16 100 Mechanical Ventilator 40 08/02/18 23:29 81 16 100 Mechanical Ventilator 40 08/02/18 23:29 76 16 40 08/02/18 23:29 40 08/02/18 20:44 80 16 40 08/02/18 20:00 98.2 86 23 107/61 (76) 99 08/02/18 20:00 83 08/02/18 20:00 40 08/02/18 20:00 Mechanical Ventilator 08/02/18 19:05 83 16 100 Mechanical Ventilator 40 08/02/18 18:54 40 08/02/18 18:53 78 16 100 Mechanical Ventilator 40 08/02/18 18:52 78 16 40 Intake and Output 08/02/18 08/03/18 19:00 07:00 Intake Total 1330 ml 1630 ml Output Total 625 ml 400 ml Balance 705 ml 1230 ml Free Water 30 ml IV Total 960 ml 990 ml Tube Feeding 120 ml 580 ml Blood Product 250 ml 30 ml Output Urine Total 625 ml 400 ml # Bowel Movements 4 5 Laboratory Tests 08/03/18 03:45: White Blood Count 6.8, Red Blood Count 2.90L, Hemoglobin 8.5L, Hematocrit 24.3L , Mean Corpuscular Volume 84, Mean Corpuscular Hemoglobin 29.5, Mean Corpuscular Hemoglobin Concent 35.1, Red Cell Distribution Width 13.2, Platelet Count 221, Mean Platelet Volume 7.2, Neutrophils (%) (Auto) 60.7, Lymphocytes (% ) (Auto) 22.3, Monocytes (%) (Auto) 11.7H, Eosinophils (%) (Auto) 4.1H, Basophils (%) (Auto) 1.1, Sodium Level 140, Potassium Level 4.1, Chloride Level 112H, Carbon Dioxide Level 20L, Anion Gap 8, Blood Urea Nitrogen 21H, Creatinine 1.1, Estimat Glomerular Filtration Rate > 60, Glucose Level 119H, Calcium Level 8.7, Phosphorus Level 3.1, Magnesium Level 2.0, Total Bilirubin 0.2, Aspartate Amino Transf (AST/SGOT) 9L, Alanine Aminotransferase (ALT/SGPT) 29, Alkaline Phosphatase 109, Total Protein 7.3, Albumin 2.5L, Globulin 4.8, Albumin/Globulin Ratio 0.5L 08/03/18 09:00: Thyroid Stimulating Hormone (TSH) 2.377 Height (Feet): 5 Height (Inches): 8.00 Weight (Pounds): 135 Ritu Ayala MD Aug 03, 2018 17:20
[2018-08-03 20:00] VITALS: BP 155/77
[2018-08-03] MEDS: Bactrim Susp 20ml GT SCH (20:32)
[2018-08-03] MEDS: Dyna-Hex 2% Top Sol 2oz TOPIC SCH (20:32)
[2018-08-03] MEDS: Iron Sucrose 100 MG in NS 55 ML IV SCH (20:34)
[2018-08-03] MEDS: D5NS 1,000 ML IV SCH (23:37)
[2018-08-04] VITALS: BP 146/79
[2018-08-04 04:00] VITALS: BP 133/78
[2018-08-04 06:28] LABS: EOSINOPHILS % (AUTO) 4.6 % (0.0-3.0); HEMATOCRIT 26.3 % (42.0-52.0); HEMOGLOBIN 8.4 G/DL (14.2-18.0); LYMPHOCYTES % (AUTO) 17.6 % (20.0-45.0); MEAN CORPUSCULAR VOLUME 85 FL (80-99); MONOCYTES % (AUTO) 9.6 % (1.0-10.0); NEUTROPHILS % (AUTO) 67.2 % (45.0-75.0); PLATELET COUNT 239 K/UL (150-450)
[2018-08-04 06:49] LABS: ANION GAP 9 mmol/L (5-15); BLOOD UREA NITROGEN 19 mg/dL (7-18); CALCIUM 8.9 MG/DL (8.5-10.1); CARBON DIOXIDE 21 MMOL/L (21-32); CHLORIDE 111 MMOL/L (98-107); CREATININE 1.1 MG/DL (0.55-1.30); POTASSIUM 4.4 MMOL/L (3.5-5.1); SODIUM 140 MMOL/L (136-145)
[2018-08-04 08:00] VITALS: BP 137/77
--- NOTE | 2018-08-04 08:06 | Pulmonology Progress Note ---
Assessment/Plan Assessment/Plan ASSESSMENT GI hemorrhage/upper GI bleeding s/p upper endoscopy 07/13 diffuse ulcerative esophagitis peptic esophageal stricture anemia of iron deficiency severe protein calorie malnutrition VDRF with trach status, acute and chronic sepsis UTI with ESBL Proteus probably pneumonitis Alzheimer dementia Hypothyroidism Hypokalemia - resolved KAYLENE due to prerenal azotemia 2 to dehydration -improving PLAN OF CARE LUIS vent support ,pulmonary toilet no evidence of pneumonia on CXR , probably pneumonitis baseline ABG stable on current settings, keep as is follow-up with CXR in am strict aspiration precaution abx, ID follows urine culture + Proteus ESBL , repeated urine culture Proteus ESBL, sputum culture GNB two different species status post EGD biopsy pending on PPI GI follows dietary eval IVF, monitor renal parameters ,electrolytes correct electrolytes prn nephro follows monitor H&H with goal to keep hemoglobin above 7 anemia workup consistent with ABHI heme follows on IV Venofer x5 days TSH WNL, continue current dose of levothyroxine supportive care case discussed and evaluated by supervising physician Subjective Allergies: Coded Allergies: NO KNOWN DRUG ALLERGIES (Verified Allergy, Unknown, 09/11/16) Subjective leukocytosis resolved ,afebrile no signs of respiratory distress on current settings tolerates GT feeding HH at baseline Objective Last 24 Hour Vital Signs Date Time Temp Pulse Resp B/P (MAP) Pulse Ox O2 Delivery O2 Flow Rate FiO2 08/04/18 05:20 70 22 40 08/04/18 04:00 Mechanical Ventilator 08/04/18 04:00 79 08/04/18 04:00 98.4 73 16 133/78 (96) 100 08/04/18 04:00 40 08/04/18 03:20 69 16 40 08/04/18 01:16 64 16 40 08/04/18 00:00 71 08/04/18 00:00 Mechanical Ventilator 08/04/18 00:00 97.9 70 21 146/79 (101) 96 08/04/18 00:00 40 08/03/18 23:03 65 15 40 08/03/18 21:07 91 26 40 08/03/18 20:08 85 26 40 08/03/18 20:00 98.0 85 27 155/77 (103) 99 08/03/18 20:00 Mechanical Ventilator 08/03/18 20:00 40 08/03/18 20:00 87 08/03/18 16:54 74 23 40 08/03/18 16:15 67 08/03/18 16:12 99.2 66 17 113/56 (75) 100 08/03/18 16:11 Mechanical Ventilator 08/03/18 16:08 40 08/03/18 14:48 71 17 40 08/03/18 13:01 76 16 40 08/03/18 12:15 Mechanical Ventilator 08/03/18 12:00 99.0 79 16 111/64 (80) 100 08/03/18 12:00 40 08/03/18 12:00 72 08/03/18 12:00 Mechanical Ventilator 08/03/18 11:30 77 16 40 08/03/18 09:14 72 16 40 Intake and Output 08/03/18 08/04/18 19:00 07:00 Intake Total 1160 ml 958.75 ml Output Total 501 ml 200 ml Balance 659 ml 758.75 ml Free Water 200 ml IV Total 838.75 ml Tube Feeding 840 ml 70 ml Other 120 ml 50 ml Output Urine Total 500 ml 200 ml Stool Total 1 ml # Voids 2 # Bowel Movements 2 Objective General Appearance: cachetic, bedridden lethargic vent dependent male in NAD on vent AC 600-40%-16 HEENT: normocephalic, atraumatic, anicteric, status post trach - Portex#8, secretions moderate, yellow, thin Respiratory/Chest: lungs clear Cardiovascular: normal rate - SR on tele , - RUE PICC intact Abdomen: normal bowel sounds, soft, non tender, non distended, G tube Neurologic/Psychiatric: abnormal gait - bedridden Musculoskeletal: atrophy - BLE Microbiology Date/Time Source Procedure Growth Status 08/02/18 01:30 Sputum Gram Stain - Final Resulted 08/02/18 01:30 Sputum Culture - Preliminary Gram Negative Bacillus 1 Gram Negative Bacillus 2 Resulted 08/02/18 01:30 Indwelling Cath Urine Culture - Preliminary Gram Negative Bacillus 1 Mixed Urogenital Contaminants Resulted Laboratory Tests 08/03/18 09:00: Thyroid Stimulating Hormone (TSH) 2.377 08/04/18 03:40: White Blood Count 9.0, Red Blood Count 3.10L, Hemoglobin 8.4L, Hematocrit 26.3L , Mean Corpuscular Volume 85, Mean Corpuscular Hemoglobin 27.1, Mean Corpuscular Hemoglobin Concent 31.9L, Red Cell Distribution Width 14.0, Platelet Count 239, Mean Platelet Volume 7.0, Neutrophils (%) (Auto) 67.2, Lymphocytes (%) (Auto) 17.6L, Monocytes (%) (Auto) 9.6, Eosinophils (%) (Auto) 4.6H, Basophils (%) (Auto) 1.0, Sodium Level 140, Potassium Level 4.4, Chloride Level 111H, Carbon Dioxide Level 21, Anion Gap 9, Blood Urea Nitrogen 19H, Creatinine 1.1, Estimat Glomerular Filtration Rate > 60, Glucose Level 110H, Calcium Level 8.9 08/04/18 07:55: Arterial Blood pH 7.402, Arterial Blood Partial Pressure CO2 33.2L, Arterial Blood Partial Pressure O2 144.0H, Arterial Blood HCO3 20.2L, Arterial Blood Oxygen Saturation 98.7, Arterial Blood Base Excess -3.9L, Ger Test Positive Current Medications Medications (Trade) Dose Ordered Sig/Wanda Route PRN Reason Start Time Stop Time Status Last Admin Dose Admin Acetaminophen (Tylenol) 650 mg Q4H PRN GT Mild Pain/Temp > 100.5 08/01/18 02:00 08/31/18 01:59 Albuterol/ Ipratropium (Albuterol/ Ipratropium) 3 ml Q4H PRN HHN Shortness of Breath 08/03/18 09:30 08/08/18 09:29 Chlorhexidine Gluconate (Jasmin-Hex 2%) 1 applic DAILY@2000 TOPIC 08/02/18 20:00 09/01/18 19:59 08/03/18 20:32 Dextrose/Sodium Chloride 1,000 ml @ 75 mls/hr [id number] IV 08/03/18 23:15 09/02/18 23:14 08/03/18 23:37 Iron Sucrose 100 mg/Sodium Chloride 60 ml @ 240 mls/hr BEDTIME IV 08/03/18 21:00 08/07/18 21:14 08/03/18 20:34 Lansoprazole (Prevacid) 30 mg BID GT 08/03/18 18:00 09/02/18 17:59 08/03/18 18:16 Levothyroxine Sodium (Synthroid) 25 mcg DAILY IV 08/04/18 09:00 09/03/18 08:59 Ondansetron HCl (Zofran) 4 mg Q6H PRN IVP Nausea & Vomiting 08/03/18 20:29 09/02/18 20:28 08/04/18 06:30 Trimethoprim/ Sulfamethoxazole (Bactrim-DS) 20 ml EVERY 12 HOURS GT 08/03/18 21:00 08/10/18 09:59 08/03/18 20:32 Amina Garcia NP Aug 04, 2018 08:06
--- NOTE | 2018-08-04 09:03 | Diagnostic Imaging Report ---
EXAM: XR Chest, 1 View CLINICAL HISTORY: SOB TECHNIQUE: Frontal view of the chest. COMPARISON: 07/31/18 chest x-ray FINDINGS: Lungs: Mildly increased interstitial markings. Subsegmental atelectasis in the right lung base. Pleural space: Unremarkable. The costophrenic angles are sharp. No visible pneumothorax. Heart: Unremarkable. No cardiomegaly. Mediastinum: Unremarkable. Bones/joints: Unremarkable. Tubes, lines and devices: EKG leads overlie the thorax. Interval placement of a right arm PICC with catheter tip in the SVC/right atrial junction. Stable positioning of a tracheostomy tube IMPRESSION: 1. Mildly increased interstitial markings. This is nonspecific but may suggest mild pulmonary vascular congestion or a mild interstitial pneumonitis. 2. Subsegmental atelectasis in the right lung base.
--- NOTE | 2018-08-04 09:20 | General Progress Note ---
Assessment/Plan Status: stable Assessment/Plan # Anemia of iron deficiency due to underlying chronic medical issues, multifactorial. --> Anemia w/u has been reviewed. Ferritin at 74 --> No evidence of hemolysis is noted, peripheral smear has been reviewed. --> Hgb goal >7. Transfuse prn. --> IV iron x5 days # Leukocytosis. Likely related to underlying infection versus reactive process. --> WBC has improved/resolved --> Peripheral has been reviewed, no blasts noted --> Medications have been reviewed --> Imaging has been reviewed. CXR shows Suboptimal positioning. No interval consolidation, overt edema or other acute cardiopulmonary findings. --> Urine culture shows gram negative bacteria --> Completed abx, empiric treatment # Upper GI vomiting bleed. GI is following, appreciate recs. # Trach and PEG. GREATLY APPRECIATE CONSULTATION. Subjective Date patient seen: Aug 04, 2018 ROS Limited/Unobtainable: Yes Hematologic/Lymphatic: Reports: anemia Allergies: Coded Allergies: NO KNOWN DRUG ALLERGIES (Verified Allergy, Unknown, 09/11/16) Subjective No acute events. H/H stable. VS stable. Objective Last 24 Hour Vital Signs Date Time Temp Pulse Resp B/P (MAP) Pulse Ox O2 Delivery O2 Flow Rate FiO2 08/04/18 05:20 70 22 40 08/04/18 04:00 Mechanical Ventilator 08/04/18 04:00 79 08/04/18 04:00 98.4 73 16 133/78 (96) 100 08/04/18 04:00 40 08/04/18 03:20 69 16 40 08/04/18 01:16 64 16 40 08/04/18 00:00 71 08/04/18 00:00 Mechanical Ventilator 08/04/18 00:00 97.9 70 21 146/79 (101) 96 08/04/18 00:00 40 08/03/18 23:03 65 15 40 08/03/18 21:07 91 26 40 08/03/18 20:08 85 26 40 08/03/18 20:00 98.0 85 27 155/77 (103) 99 08/03/18 20:00 Mechanical Ventilator 08/03/18 20:00 40 08/03/18 20:00 87 08/03/18 16:54 74 23 40 08/03/18 16:15 67 08/03/18 16:12 99.2 66 17 113/56 (75) 100 08/03/18 16:11 Mechanical Ventilator 08/03/18 16:08 40 08/03/18 14:48 71 17 40 08/03/18 13:01 76 16 40 08/03/18 12:15 Mechanical Ventilator 08/03/18 12:00 99.0 79 16 111/64 (80) 100 08/03/18 12:00 40 08/03/18 12:00 72 08/03/18 12:00 Mechanical Ventilator 08/03/18 11:30 77 16 40 Intake and Output 08/03/18 08/04/18 19:00 07:00 Intake Total 1160 ml 958.75 ml Output Total 501 ml 200 ml Balance 659 ml 758.75 ml Free Water 200 ml IV Total 838.75 ml Tube Feeding 840 ml 70 ml Other 120 ml 50 ml Output Urine Total 500 ml 200 ml Stool Total 1 ml # Voids 2 # Bowel Movements 2 Laboratory Tests 08/04/18 03:40: White Blood Count 9.0, Red Blood Count 3.10L, Hemoglobin 8.4L, Hematocrit 26.3L , Mean Corpuscular Volume 85, Mean Corpuscular Hemoglobin 27.1, Mean Corpuscular Hemoglobin Concent 31.9L, Red Cell Distribution Width 14.0, Platelet Count 239, Mean Platelet Volume 7.0, Neutrophils (%) (Auto) 67.2, Lymphocytes (%) (Auto) 17.6L, Monocytes (%) (Auto) 9.6, Eosinophils (%) (Auto) 4.6H, Basophils (%) (Auto) 1.0, Sodium Level 140, Potassium Level 4.4, Chloride Level 111H, Carbon Dioxide Level 21, Anion Gap 9, Blood Urea Nitrogen 19H, Creatinine 1.1, Estimat Glomerular Filtration Rate > 60, Glucose Level 110H, Calcium Level 8.9 08/04/18 07:55: Arterial Blood pH 7.402, Arterial Blood Partial Pressure CO2 33.2L, Arterial Blood Partial Pressure O2 144.0H, Arterial Blood HCO3 20.2L, Arterial Blood Oxygen Saturation 98.7, Arterial Blood Base Excess -3.9L, Ger Test Positive Height (Feet): 5 Height (Inches): 8.00 Weight (Pounds): 135 Objective PHYSICAL EXAMINATION: VITAL SIGNS: Have been reviewed GENERAL: No acute distress. HEENT: Trach site is intact. CHEST: Bibasilar rales CARDIOVASCULAR: Regular rate and rhythm. GASTROINTESTINAL: Positive bowel sounds. G-tube site is intact. EXTREMITIES: + edema. NEUROLOGICAL: The patient does not follow neurological exam. Reflexes equal on both sides. No organomegaly. Nikos Nath MD Aug 04, 2018 09:20
[2018-08-04] MEDS: Bactrim Susp 20ml GT SCH ×2 (09:32→21:19)
[2018-08-04] MEDS ORDERED: D5NS 1000ml IV ONE ×2 (09:39→13:45)
[2018-08-04] MEDS ORDERED: NS 275ml ONE (09:39)
[2018-08-04 12:00] VITALS: BP 119/69
[2018-08-04] MEDS: D5NS 1,000 ML IV SCH (12:35)
--- NOTE | 2018-08-04 12:39 | Diagnostic Imaging Report ---
EXAM: XR Abdomen, 1 View CLINICAL HISTORY: VOMITING TECHNIQUE: Frontal supine views of the abdomen. COMPARISON: No relevant prior studies available. FINDINGS: Intraperitoneal space: No evidence of intraperitoneal free air. Gastrointestinal tract: Diffuse gaseous distention of small bowel and colonic loops, nonspecific. Cannot exclude partial obstruction. No evidence of pneumatosis intestinalis. Organs: Renal shadows are partially obscured by overlying bowel gas. No abnormal calcifications in the abdomen or pelvis. Bones/joints: Unremarkable. Tubes, lines and devices: Percutaneous gastrostomy tube in place. IMPRESSION: Diffuse gaseous distention of small bowel and colonic loops, nonspecific. Cannot exclude partial obstruction.
--- NOTE | 2018-08-04 12:47 | Nephrology Progress Note ---
Assessment/Plan Problem List: (1) Tracheostomy dependence (2) Hypokalemia (3) GI bleed Assessment GI bleed Anemia low Iron Low K resolved Plan DC IV - GT feeding K supplement Gastric support IV Iron Per GI Subjective ROS Limited/Unobtainable: No Objective Objective Last 24 Hour Vital Signs Date Time Temp Pulse Resp B/P (MAP) Pulse Ox O2 Delivery O2 Flow Rate FiO2 08/04/18 11:06 70 18 40 08/04/18 09:40 71 18 40 08/04/18 09:00 Mechanical Ventilator 08/04/18 09:00 40 08/04/18 08:00 72 08/04/18 08:00 40 08/04/18 08:00 Mechanical Ventilator 08/04/18 08:00 99.2 86 22 137/77 (97) 100 08/04/18 06:50 68 20 40 08/04/18 05:20 70 22 40 08/04/18 04:00 Mechanical Ventilator 08/04/18 04:00 79 08/04/18 04:00 98.4 73 16 133/78 (96) 100 08/04/18 04:00 40 08/04/18 03:20 69 16 40 08/04/18 01:16 64 16 40 08/04/18 00:00 71 08/04/18 00:00 Mechanical Ventilator 08/04/18 00:00 97.9 70 21 146/79 (101) 96 08/04/18 00:00 40 08/03/18 23:03 65 15 40 08/03/18 21:07 91 26 40 08/03/18 20:08 85 26 40 08/03/18 20:00 98.0 85 27 155/77 (103) 99 08/03/18 20:00 Mechanical Ventilator 08/03/18 20:00 40 08/03/18 20:00 87 08/03/18 16:54 74 23 40 08/03/18 16:15 67 08/03/18 16:12 99.2 66 17 113/56 (75) 100 08/03/18 16:11 Mechanical Ventilator 08/03/18 16:08 40 08/03/18 14:48 71 17 40 08/03/18 13:01 76 16 40 Intake and Output 08/03/18 08/04/18 19:00 07:00 Intake Total 1160 ml 958.75 ml Output Total 501 ml 200 ml Balance 659 ml 758.75 ml Free Water 200 ml IV Total 838.75 ml Tube Feeding 840 ml 70 ml Other 120 ml 50 ml Output Urine Total 500 ml 200 ml Stool Total 1 ml # Voids 2 # Bowel Movements 2 Laboratory Tests 08/04/18 03:40: White Blood Count 9.0, Red Blood Count 3.10L, Hemoglobin 8.4L, Hematocrit 26.3L , Mean Corpuscular Volume 85, Mean Corpuscular Hemoglobin 27.1, Mean Corpuscular Hemoglobin Concent 31.9L, Red Cell Distribution Width 14.0, Platelet Count 239, Mean Platelet Volume 7.0, Neutrophils (%) (Auto) 67.2, Lymphocytes (%) (Auto) 17.6L, Monocytes (%) (Auto) 9.6, Eosinophils (%) (Auto) 4.6H, Basophils (%) (Auto) 1.0, Sodium Level 140, Potassium Level 4.4, Chloride Level 111H, Carbon Dioxide Level 21, Anion Gap 9, Blood Urea Nitrogen 19H, Creatinine 1.1, Estimat Glomerular Filtration Rate > 60, Glucose Level 110H, Calcium Level 8.9 08/04/18 07:55: Arterial Blood pH 7.402, Arterial Blood Partial Pressure CO2 33.2L, Arterial Blood Partial Pressure O2 144.0H, Arterial Blood HCO3 20.2L, Arterial Blood Oxygen Saturation 98.7, Arterial Blood Base Excess -3.9L, Ger Test Positive Height (Feet): 5 Height (Inches): 8.00 Weight (Pounds): 135 General Appearance: no apparent distress Objective no change Sav Salvador MD Aug 04, 2018 12:47
--- NOTE | 2018-08-04 14:14 | General Progress Note ---
Assessment/Plan Assessment/Plan Assessment - Dark stools/ Anemia - severe GERD with stricture - OBS - Resp failure, trach - s/p GT - Contractures Recommendations - IVF - PPI - Follow H&H - Resume TF Subjective Allergies: Coded Allergies: NO KNOWN DRUG ALLERGIES (Verified Allergy, Unknown, 09/11/16) Subjective Seen this am some GT leak noted last PM GT Changed by MD at bedside d/w RN Objective Last 24 Hour Vital Signs Date Time Temp Pulse Resp B/P (MAP) Pulse Ox O2 Delivery O2 Flow Rate FiO2 08/04/18 13:02 72 18 40 08/04/18 12:05 92 08/04/18 12:00 99.0 71 18 119/69 (86) 100 08/04/18 12:00 Mechanical Ventilator 08/04/18 11:06 70 18 40 08/04/18 09:40 71 18 40 08/04/18 09:00 Mechanical Ventilator 08/04/18 09:00 40 08/04/18 08:00 72 08/04/18 08:00 40 08/04/18 08:00 Mechanical Ventilator 08/04/18 08:00 99.2 86 22 137/77 (97) 100 08/04/18 06:50 68 20 40 08/04/18 05:20 70 22 40 08/04/18 04:00 Mechanical Ventilator 08/04/18 04:00 79 08/04/18 04:00 98.4 73 16 133/78 (96) 100 08/04/18 04:00 40 08/04/18 03:20 69 16 40 08/04/18 01:16 64 16 40 08/04/18 00:00 71 08/04/18 00:00 Mechanical Ventilator 08/04/18 00:00 97.9 70 21 146/79 (101) 96 08/04/18 00:00 40 08/03/18 23:03 65 15 40 08/03/18 21:07 91 26 40 08/03/18 20:08 85 26 40 08/03/18 20:00 98.0 85 27 155/77 (103) 99 08/03/18 20:00 Mechanical Ventilator 08/03/18 20:00 40 08/03/18 20:00 87 08/03/18 16:54 74 23 40 08/03/18 16:15 67 08/03/18 16:12 99.2 66 17 113/56 (75) 100 08/03/18 16:11 Mechanical Ventilator 08/03/18 16:08 40 08/03/18 14:48 71 17 40 Intake and Output 08/03/18 08/04/18 19:00 07:00 Intake Total 1160 ml 958.75 ml Output Total 501 ml 200 ml Balance 659 ml 758.75 ml Free Water 200 ml IV Total 838.75 ml Tube Feeding 840 ml 70 ml Other 120 ml 50 ml Output Urine Total 500 ml 200 ml Stool Total 1 ml # Voids 2 # Bowel Movements 2 Laboratory Tests 08/04/18 03:40: White Blood Count 9.0, Red Blood Count 3.10L, Hemoglobin 8.4L, Hematocrit 26.3L , Mean Corpuscular Volume 85, Mean Corpuscular Hemoglobin 27.1, Mean Corpuscular Hemoglobin Concent 31.9L, Red Cell Distribution Width 14.0, Platelet Count 239, Mean Platelet Volume 7.0, Neutrophils (%) (Auto) 67.2, Lymphocytes (%) (Auto) 17.6L, Monocytes (%) (Auto) 9.6, Eosinophils (%) (Auto) 4.6H, Basophils (%) (Auto) 1.0, Sodium Level 140, Potassium Level 4.4, Chloride Level 111H, Carbon Dioxide Level 21, Anion Gap 9, Blood Urea Nitrogen 19H, Creatinine 1.1, Estimat Glomerular Filtration Rate > 60, Glucose Level 110H, Calcium Level 8.9 08/04/18 07:55: Arterial Blood pH 7.402, Arterial Blood Partial Pressure CO2 33.2L, Arterial Blood Partial Pressure O2 144.0H, Arterial Blood HCO3 20.2L, Arterial Blood Oxygen Saturation 98.7, Arterial Blood Base Excess -3.9L, Ger Test Positive Height (Feet): 5 Height (Inches): 8.00 Weight (Pounds): 135 Objective WDWN NCAT (+) trach coarse BS RRR abd soft, (+) GT no edema OBS Ritu Ayala MD Aug 04, 2018 14:14
[2018-08-04 16:00] VITALS: BP 108/66
[2018-08-04 20:00] VITALS: BP 110/60
[2018-08-04] MEDS: Dyna-Hex 2% Top Sol 2oz TOPIC SCH (20:03)
[2018-08-04] MEDS: Iron Sucrose 100 MG in NS 55 ML IV SCH (21:19)
[2018-08-05] VITALS: BP 110/54
[2018-08-05] MEDS: D5NS 1,000 ML IV SCH ×2 (02:16→15:15)
[2018-08-05 04:00] VITALS: BP 119/72
[2018-08-05 04:54] LABS: BASOPHILS % (AUTO) 0.7 % (0.0-2.0); EOSINOPHILS % (AUTO) 5.7 % (0.0-3.0); HEMATOCRIT 24.9 % (42.0-52.0); LYMPHOCYTES % (AUTO) 18.6 % (20.0-45.0); MEAN CORPUSCULAR VOLUME 85 FL (80-99); MONOCYTES % (AUTO) 12.2 % (1.0-10.0); NEUTROPHILS % (AUTO) 62.8 % (45.0-75.0); PLATELET COUNT 214 K/UL (150-450); RED BLOOD COUNT 2.93 M/UL (4.70-6.10); RED CELL DISTRIBUTION WIDTH 14.3 % (11.6-14.8)
[2018-08-05 05:29] LABS: ANION GAP 8 mmol/L (5-15); BLOOD UREA NITROGEN 17 mg/dL (7-18); CALCIUM 8.2 MG/DL (8.5-10.1); CARBON DIOXIDE 23 MMOL/L (21-32); CHLORIDE 109 MMOL/L (98-107); CREATININE 1.2 MG/DL (0.55-1.30); POTASSIUM 4.6 MMOL/L (3.5-5.1); SODIUM 140 MMOL/L (136-145)
--- NOTE | 2018-08-05 07:00 | General Progress Note ---
Assessment/Plan Assessment/Plan # Anemia of iron deficiency due to underlying chronic medical issues, multifactorial. --> Anemia w/u has been reviewed. Ferritin at 74 --> No evidence of hemolysis is noted, peripheral smear has been reviewed. --> Hgb goal >7. Transfuse prn. --> IV iron x5 days # Leukocytosis. Likely related to underlying infection versus reactive process. --> WBC has improved/resolved --> Peripheral has been reviewed, no blasts noted --> Medications have been reviewed --> Imaging has been reviewed. CXR shows Suboptimal positioning. No interval consolidation, overt edema or other acute cardiopulmonary findings. --> Urine culture shows gram negative bacteria --> Completed abx, empiric treatment # Upper GI vomiting bleed. GI is following, appreciate recs. --> protonix as needed # Trach and PEG. # Nonverbal status # Dyshagia s/p peg # Resp failure s/p trach/vent GREATLY APPRECIATE CONSULTATION. Subjective Allergies: Coded Allergies: NO KNOWN DRUG ALLERGIES (Verified Allergy, Unknown, 09/11/16) Subjective No acute events. H/H stable. VS stable. nonverbal Objective Last 24 Hour Vital Signs Date Time Temp Pulse Resp B/P (MAP) Pulse Ox O2 Delivery O2 Flow Rate FiO2 08/05/18 06:51 72 19 40 08/05/18 05:00 77 20 40 08/05/18 04:00 40 08/05/18 04:00 40 08/05/18 04:00 76 08/05/18 04:00 Mechanical Ventilator 08/05/18 04:00 98.1 82 18 119/72 (88) 100 08/05/18 02:54 74 18 40 08/05/18 00:43 72 20 40 08/05/18 00:00 75 08/05/18 00:00 Mechanical Ventilator 08/05/18 00:00 98.6 65 17 110/54 (72) 100 08/04/18 23:29 75 16 40 08/04/18 21:10 77 20 40 08/04/18 20:00 98.1 72 16 110/60 (77) 100 08/04/18 20:00 61 08/04/18 20:00 Mechanical Ventilator 08/04/18 20:00 40 08/04/18 19:17 79 17 40 08/04/18 18:18 99.2 08/04/18 17:06 71 18 40 08/04/18 16:00 40 08/04/18 16:00 99.2 79 20 108/66 (80) 100 08/04/18 16:00 Mechanical Ventilator 08/04/18 15:56 69 08/04/18 15:16 08/04/18 15:07 71 18 40 08/04/18 13:02 72 18 40 08/04/18 12:05 92 08/04/18 12:00 99.0 71 18 119/69 (86) 100 08/04/18 12:00 Mechanical Ventilator 08/04/18 11:06 70 18 40 08/04/18 09:40 71 18 40 08/04/18 09:00 Mechanical Ventilator 08/04/18 09:00 40 08/04/18 08:00 72 08/04/18 08:00 40 08/04/18 08:00 Mechanical Ventilator 08/04/18 08:00 99.2 86 22 137/77 (97) 100 Intake and Output 08/04/18 08/05/18 19:00 07:00 Intake Total 1415 ml 1220 ml Output Total 400 ml 500 ml Balance 1015 ml 720 ml Free Water 100 ml IV Total 825 ml 450 ml Tube Feeding 490 ml 770 ml Output Urine Total 400 ml 500 ml # Bowel Movements 4 1 Laboratory Tests 08/04/18 07:55: Arterial Blood pH 7.402, Arterial Blood Partial Pressure CO2 33.2L, Arterial Blood Partial Pressure O2 144.0H, Arterial Blood HCO3 20.2L, Arterial Blood Oxygen Saturation 98.7, Arterial Blood Base Excess -3.9L, Ger Test Positive 08/05/18 04:00: White Blood Count 8.0, Red Blood Count 2.93L, Hemoglobin 8.0L, Hematocrit 24.9L , Mean Corpuscular Volume 85, Mean Corpuscular Hemoglobin 27.2, Mean Corpuscular Hemoglobin Concent 32.1, Red Cell Distribution Width 14.3, Platelet Count 214, Mean Platelet Volume 7.1, Neutrophils (%) (Auto) 62.8, Lymphocytes (% ) (Auto) 18.6L, Monocytes (%) (Auto) 12.2H, Eosinophils (%) (Auto) 5.7H, Basophils (%) (Auto) 0.7, Sodium Level 140, Potassium Level 4.6, Chloride Level 109H, Carbon Dioxide Level 23, Anion Gap 8, Blood Urea Nitrogen 17, Creatinine 1.2, Estimat Glomerular Filtration Rate > 60, Glucose Level 124H, Calcium Level 8.2L 08/05/18 04:40: Stool Occult Blood [Pending] Height (Feet): 5 Height (Inches): 8.00 Weight (Pounds): 135 Objective PHYSICAL EXAMINATION: VITAL SIGNS: Have been reviewed GENERAL: No acute distress. nonverbal HEENT: Trach site is intact.on vent CHEST: Bibasilar rales CARDIOVASCULAR: Regular rate and rhythm. GASTROINTESTINAL: Positive bowel sounds. G-tube site is intact. EXTREMITIES: + edema. NEUROLOGICAL: The patient does not follow neurological exam. Reflexes equal on both sides. No organomegaly. Nikos Nath MD Aug 05, 2018 06:59
[2018-08-05 08:00] VITALS: BP 109/59
[2018-08-05] MEDS: Bactrim Susp 20ml GT SCH ×2 (09:00→20:26)
--- NOTE | 2018-08-05 11:03 | Diagnostic Imaging Report ---
Indication: Shortness of breath Technique: One view of the chest Comparison: 08/04/2018 Findings: There is increased bilateral interstitial edema. There is evidence of developing left pleural effusion. Heart size is normal. Tracheostomy remains. Right arm PICC in good position again demonstrated Impression: Increased bilateral interstitial edema over one day. Suspect developing left pleural effusion
--- NOTE | 2018-08-05 11:52 | Pulmonology Progress Note ---
Assessment/Plan Problems: (1) Upper GI bleed (2) Anemia (3) Chronic respiratory failure (4) Sepsis (5) Alzheimer's dementia (6) Severe protein-calorie malnutrition (7) Feeding by G-tube Assessment/Plan tolerating feeding still lots of secretions check cultures wbc decreasing ID evaluation appreciated H2 blockers prbc prn, ( consent signed, pt doesn't have any DPOA or relatives) dvt prophylaxis Subjective ROS Limited/Unobtainable: Yes Constitutional: Reports: no symptoms HEENT: Repors: no symptoms Allergies: Coded Allergies: NO KNOWN DRUG ALLERGIES (Verified Allergy, Unknown, 09/11/16) Objective Last 24 Hour Vital Signs Date Time Temp Pulse Resp B/P (MAP) Pulse Ox O2 Delivery O2 Flow Rate FiO2 08/05/18 10:33 76 22 40 08/05/18 09:29 66 16 40 08/05/18 08:00 40 08/05/18 08:00 Mechanical Ventilator 08/05/18 08:00 67 08/05/18 08:00 98.2 66 18 109/59 (76) 08/05/18 06:51 72 19 40 08/05/18 05:00 77 20 40 08/05/18 04:00 40 08/05/18 04:00 40 08/05/18 04:00 76 08/05/18 04:00 Mechanical Ventilator 08/05/18 04:00 98.1 82 18 119/72 (88) 100 08/05/18 02:54 74 18 40 08/05/18 00:43 72 20 40 08/05/18 00:00 75 08/05/18 00:00 Mechanical Ventilator 08/05/18 00:00 98.6 65 17 110/54 (72) 100 08/04/18 23:29 75 16 40 08/04/18 21:10 77 20 40 08/04/18 20:00 98.1 72 16 110/60 (77) 100 08/04/18 20:00 61 08/04/18 20:00 Mechanical Ventilator 08/04/18 20:00 40 08/04/18 19:17 79 17 40 08/04/18 18:18 99.2 08/04/18 17:06 71 18 40 08/04/18 16:00 40 08/04/18 16:00 99.2 79 20 108/66 (80) 100 08/04/18 16:00 Mechanical Ventilator 08/04/18 15:56 69 08/04/18 15:16 08/04/18 15:07 71 18 40 08/04/18 13:02 72 18 40 08/04/18 12:05 92 08/04/18 12:00 99.0 71 18 119/69 (86) 100 08/04/18 12:00 Mechanical Ventilator Intake and Output 08/04/18 08/05/18 19:00 07:00 Intake Total 1415 ml 1710 ml Output Total 400 ml 500 ml Balance 1015 ml 1210 ml Free Water 100 ml IV Total 825 ml 870 ml Tube Feeding 490 ml 840 ml Output Urine Total 400 ml 500 ml # Bowel Movements 4 1 General Appearance: cachetic HEENT: normocephalic, atraumatic Respiratory/Chest: chest wall non-tender, normal breath sounds Cardiovascular: normal rate, regular rhythm Abdomen: normal bowel sounds, soft, non tender Genitourinary: normal external genitalia Extremities: no cyanosis Skin: no rash 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 Lymphatic: no neck adenopathy Laboratory Tests 08/05/18 04:00: White Blood Count 8.0, Red Blood Count 2.93L, Hemoglobin 8.0L, Hematocrit 24.9L , Mean Corpuscular Volume 85, Mean Corpuscular Hemoglobin 27.2, Mean Corpuscular Hemoglobin Concent 32.1, Red Cell Distribution Width 14.3, Platelet Count 214, Mean Platelet Volume 7.1, Neutrophils (%) (Auto) 62.8, Lymphocytes (% ) (Auto) 18.6L, Monocytes (%) (Auto) 12.2H, Eosinophils (%) (Auto) 5.7H, Basophils (%) (Auto) 0.7, Sodium Level 140, Potassium Level 4.6, Chloride Level 109H, Carbon Dioxide Level 23, Anion Gap 8, Blood Urea Nitrogen 17, Creatinine 1.2, Estimat Glomerular Filtration Rate > 60, Glucose Level 124H, Calcium Level 8.2L 08/05/18 04:40: Stool Occult Blood Positive Current Medications Medications (Trade) Dose Ordered Sig/Wanda Route PRN Reason Start Time Stop Time Status Last Admin Dose Admin Acetaminophen (Tylenol) 650 mg Q4H PRN GT Mild Pain/Temp > 100.5 08/01/18 02:00 08/31/18 01:59 08/04/18 17:48 Albuterol/ Ipratropium (Albuterol/ Ipratropium) 3 ml Q4H PRN HHN Shortness of Breath 08/03/18 09:30 08/08/18 09:29 Chlorhexidine Gluconate (Jasmin-Hex 2%) 1 applic DAILY@2000 TOPIC 08/02/18 20:00 09/01/18 19:59 08/04/18 20:03 Dextrose/Sodium Chloride 1,000 ml @ 75 mls/hr [id number] IV 08/03/18 23:15 09/02/18 23:14 08/05/18 02:16 Iron Sucrose 100 mg/Sodium Chloride 60 ml @ 240 mls/hr BEDTIME IV 08/03/18 21:00 08/07/18 21:14 08/04/18 21:19 Lansoprazole (Prevacid) 30 mg BID GT 08/03/18 18:00 09/02/18 17:59 08/05/18 09:00 Levothyroxine Sodium (Synthroid) 25 mcg DAILY IV 08/04/18 09:00 09/03/18 08:59 08/05/18 10:23 Ondansetron HCl (Zofran) 4 mg Q6H PRN IVP Nausea & Vomiting 08/03/18 20:29 09/02/18 20:28 08/04/18 06:30 Trimethoprim/ Sulfamethoxazole (Bactrim-DS) 20 ml EVERY 12 HOURS GT 08/03/18 21:00 08/10/18 09:59 08/05/18 09:00 Huma Keating MD Aug 05, 2018 11:52
[2018-08-05 12:00] VITALS: BP 154/81
--- NOTE | 2018-08-05 13:16 | General Progress Note ---
Assessment/Plan Problem List: (1) GI bleed ICD Codes: K92.2 - Gastrointestinal hemorrhage, unspecified SNOMED: 21914762 (2) Respiratory failure, [id number] ICD Codes: J96.20 - Respiratory failure, [id number] SNOMED: 72721952 (3) Anemia ICD Codes: D64.9 - Anemia, unspecified SNOMED: 957280063 (4) Hypothyroidism ICD Codes: E03.9 - Hypothyroidism, unspecified SNOMED: 06359200 Status: stable, progressing Assessment/Plan vent abx prn cbc bmp am dc planning Subjective Constitutional: Reports: weakness Allergies: Coded Allergies: NO KNOWN DRUG ALLERGIES (Verified Allergy, Unknown, 09/11/16) All Systems: reviewed and negative except above Subjective trach vent altered calm Objective Last 24 Hour Vital Signs Date Time Temp Pulse Resp B/P (MAP) Pulse Ox O2 Delivery O2 Flow Rate FiO2 08/05/18 12:00 Mechanical Ventilator 08/05/18 12:00 97.2 64 154/81 (105) 100 08/05/18 10:33 76 22 40 08/05/18 09:29 66 16 40 08/05/18 08:00 40 08/05/18 08:00 Mechanical Ventilator 08/05/18 08:00 98.2 66 18 109/59 (76) 100 08/05/18 08:00 67 08/05/18 06:51 72 19 40 08/05/18 05:00 77 20 40 08/05/18 04:00 40 08/05/18 04:00 40 08/05/18 04:00 76 08/05/18 04:00 Mechanical Ventilator 08/05/18 04:00 98.1 82 18 119/72 (88) 100 08/05/18 02:54 74 18 40 08/05/18 00:43 72 20 40 08/05/18 00:00 75 08/05/18 00:00 Mechanical Ventilator 08/05/18 00:00 98.6 65 17 110/54 (72) 100 08/04/18 23:29 75 16 40 08/04/18 21:10 77 20 40 08/04/18 20:00 98.1 72 16 110/60 (77) 100 08/04/18 20:00 61 08/04/18 20:00 Mechanical Ventilator 08/04/18 20:00 40 08/04/18 19:17 79 17 40 08/04/18 18:18 99.2 08/04/18 17:06 71 18 40 08/04/18 16:00 40 08/04/18 16:00 99.2 79 20 108/66 (80) 100 08/04/18 16:00 Mechanical Ventilator 08/04/18 15:56 69 08/04/18 15:16 08/04/18 15:07 71 18 40 Intake and Output 08/04/18 08/05/18 19:00 07:00 Intake Total 1415 ml 1710 ml Output Total 400 ml 500 ml Balance 1015 ml 1210 ml Free Water 100 ml IV Total 825 ml 870 ml Tube Feeding 490 ml 840 ml Output Urine Total 400 ml 500 ml # Bowel Movements 4 1 Laboratory Tests 08/05/18 04:00: White Blood Count 8.0, Red Blood Count 2.93L, Hemoglobin 8.0L, Hematocrit 24.9L , Mean Corpuscular Volume 85, Mean Corpuscular Hemoglobin 27.2, Mean Corpuscular Hemoglobin Concent 32.1, Red Cell Distribution Width 14.3, Platelet Count 214, Mean Platelet Volume 7.1, Neutrophils (%) (Auto) 62.8, Lymphocytes (% ) (Auto) 18.6L, Monocytes (%) (Auto) 12.2H, Eosinophils (%) (Auto) 5.7H, Basophils (%) (Auto) 0.7, Sodium Level 140, Potassium Level 4.6, Chloride Level 109H, Carbon Dioxide Level 23, Anion Gap 8, Blood Urea Nitrogen 17, Creatinine 1.2, Estimat Glomerular Filtration Rate > 60, Glucose Level 124H, Calcium Level 8.2L 08/05/18 04:40: Stool Occult Blood Positive Height (Feet): 5 Height (Inches): 8.00 Weight (Pounds): 135 General Appearance: lethargic EENT: normal ENT inspection Neck: normal alignment Cardiovascular: normal peripheral pulses, normal rate, regular rhythm Respiratory/Chest: chest wall non-tender, lungs clear, normal breath sounds Abdomen: normal bowel sounds, non tender, soft Extremities: normal inspection Edema: no edema noted Arm (L), no edema noted Arm (R), no edema noted Leg (L), no edema noted Leg (R), no edema noted Pedal (L), no edema noted Pedal (R), no edema noted Generalized Neurologic: motor weakness Skin: normal pigmentation, warm/dry Gato Viveros DO Aug 05, 2018 13:16
--- NOTE | 2018-08-05 13:36 | Diagnostic Imaging Report ---
APPROVED REPORT CPT Code: 60385 Present Symptoms Shortness of breath Technically difficult study. 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 BILATERAL: Imaging reveals a patent deep venous system bilaterally. There is no evidence of thrombus within the femoral, right popliteal or tibial segments. The greater saphenous veins are also within normal limits. Doppler indicates normal spontaneous flow within these segments.The left popliteal vein not imaged due to contractures.
--- NOTE | 2018-08-05 14:10 | Cardiology Report ---
APPROVED REPORT EKG Measurement Heart [id number] Normal sinus rhythm Normal ECG
--- NOTE | 2018-08-05 14:56 | Nephrology Progress Note ---
Assessment/Plan Problem List: (1) Tracheostomy dependence (2) Hypokalemia (3) GI bleed Assessment GI bleed Anemia low Iron Low K resolved Plan DC IV - GT feeding K supplement Gastric support IV Iron Per GI Subjective ROS Limited/Unobtainable: Yes Objective Objective Last 24 Hour Vital Signs Date Time Temp Pulse Resp B/P (MAP) Pulse Ox O2 Delivery O2 Flow Rate FiO2 08/05/18 13:28 65 16 40 08/05/18 12:00 65 08/05/18 12:00 Mechanical Ventilator 08/05/18 12:00 97.2 64 154/81 (105) 100 08/05/18 10:33 76 22 40 08/05/18 09:29 66 16 40 08/05/18 08:00 40 08/05/18 08:00 Mechanical Ventilator 08/05/18 08:00 98.2 66 18 109/59 (76) 100 08/05/18 08:00 67 08/05/18 06:51 72 19 40 08/05/18 05:00 77 20 40 08/05/18 04:00 40 08/05/18 04:00 40 08/05/18 04:00 76 08/05/18 04:00 Mechanical Ventilator 08/05/18 04:00 98.1 82 18 119/72 (88) 100 08/05/18 02:54 74 18 40 08/05/18 00:43 72 20 40 08/05/18 00:00 75 08/05/18 00:00 Mechanical Ventilator 08/05/18 00:00 98.6 65 17 110/54 (72) 100 08/04/18 23:29 75 16 40 08/04/18 21:10 77 20 40 08/04/18 20:00 98.1 72 16 110/60 (77) 100 08/04/18 20:00 61 08/04/18 20:00 Mechanical Ventilator 08/04/18 20:00 40 08/04/18 19:17 79 17 40 08/04/18 18:18 99.2 08/04/18 17:06 71 18 40 08/04/18 16:00 40 08/04/18 16:00 99.2 79 20 108/66 (80) 100 08/04/18 16:00 Mechanical Ventilator 08/04/18 15:56 69 11/25/18 15:16 08/04/18 15:07 71 18 40 Intake and Output 08/04/18 08/05/18 19:00 07:00 Intake Total 1415 ml 1710 ml Output Total 400 ml 500 ml Balance 1015 ml 1210 ml Free Water 100 ml IV Total 825 ml 870 ml Tube Feeding 490 ml 840 ml Output Urine Total 400 ml 500 ml # Bowel Movements 4 1 Laboratory Tests 08/05/18 04:00: White Blood Count 8.0, Red Blood Count 2.93L, Hemoglobin 8.0L, Hematocrit 24.9L , Mean Corpuscular Volume 85, Mean Corpuscular Hemoglobin 27.2, Mean Corpuscular Hemoglobin Concent 32.1, Red Cell Distribution Width 14.3, Platelet Count 214, Mean Platelet Volume 7.1, Neutrophils (%) (Auto) 62.8, Lymphocytes (% ) (Auto) 18.6L, Monocytes (%) (Auto) 12.2H, Eosinophils (%) (Auto) 5.7H, Basophils (%) (Auto) 0.7, Sodium Level 140, Potassium Level 4.6, Chloride Level 109H, Carbon Dioxide Level 23, Anion Gap 8, Blood Urea Nitrogen 17, Creatinine 1.2, Estimat Glomerular Filtration Rate > 60, Glucose Level 124H, Calcium Level 8.2L 08/05/18 04:40: Stool Occult Blood Positive Height (Feet): 5 Height (Inches): 8.00 Weight (Pounds): 135 General Appearance: no apparent distress Objective no change Sav Salvador MD Aug 05, 2018 14:56
[2018-08-05 16:00] VITALS: BP 112/67
--- NOTE | 2018-08-05 17:54 | Infectious Diseases Prog Note ---
Assessment/Plan Assessment/Plan Assessment 67 yo male who is vent dependent and was brought to the ED on 07/31/18 with GIB and increased sputum. UTI UA positive 08/01/18 UCxESBL Proteus Sen to erta, zosyn and bactrim; 08/02/18 UCx ESBL P.mirabilis Increase oral secretions -CXR 08/05: Increased bilateral interstitial edema over one day.Suspect developing left pleural effusion No evidence for PNA on CXR -sp cx ESBL P.mirabils (S Bactrim), S. maltophilia (S Bactrim) Leukocytosis up to 13 Now resolved Afebrile Hx Constipation Chronic respiratory failure, Hypothyroidism GERD Hypertension Hx C. diff Dysphagia, Esophagitis GI bleed Anemia. Trached vent depeendent PEG Plan - Continue Bactrim PO/NG DS BID #3/7 (End date 08/09/18) -08/03 SP Vancomycin and Cefepime #3 -08/01 SP Ceftriaxone x1 - Monitor CBC and temps -Trach/oral care -Aspiration precautions Thank you for this consult. We will continue to follow the patient during this hospitalization. Subjective Allergies: Coded Allergies: NO KNOWN DRUG ALLERGIES (Verified Allergy, Unknown, 09/11/16) Subjective afebrile no leukocytosis Fio2 40% Objective Vital Signs Last 24 Hour Vital Signs Date Time Temp Pulse Resp B/P (MAP) Pulse Ox O2 Delivery O2 Flow Rate FiO2 08/05/18 16:09 Mechanical Ventilator 08/05/18 16:00 62 08/05/18 16:00 40 08/05/18 16:00 98.1 65 16 112/67 (82) 98 08/05/18 15:05 66 17 40 08/05/18 13:28 65 16 40 08/05/18 12:00 65 08/05/18 12:00 97.2 64 18 154/81 (105) 100 08/05/18 12:00 Mechanical Ventilator 08/05/18 10:33 76 22 40 08/05/18 09:29 66 16 40 08/05/18 08:00 40 08/05/18 08:00 Mechanical Ventilator 08/05/18 08:00 98.2 66 18 109/59 (76) 100 08/05/18 08:00 67 08/05/18 06:51 72 19 40 08/05/18 05:00 77 20 40 08/05/18 04:00 40 08/05/18 04:00 40 08/05/18 04:00 76 08/05/18 04:00 Mechanical Ventilator 08/05/18 04:00 98.1 82 18 119/72 (88) 100 08/05/18 02:54 74 18 40 08/05/18 00:43 72 20 40 08/05/18 00:00 75 08/05/18 00:00 Mechanical Ventilator 08/05/18 00:00 98.6 65 17 110/54 (72) 100 08/04/18 23:29 75 16 40 08/04/18 21:10 77 20 40 08/04/18 20:00 98.1 72 16 110/60 (77) 100 08/04/18 20:00 61 08/04/18 20:00 Mechanical Ventilator 08/04/18 20:00 40 08/04/18 19:17 79 17 40 08/04/18 18:18 99.2 Height (Feet): 5 Height (Inches): 8.00 Weight (Pounds): 135 Objective Gen: NAD. Trached HEENT: NCAT, MMM, eyes open not following No Oral lesion, no scleral icterus NECK: full range of motion, supple, no meningismus, No LAD, No JVD LUNGS: CTAB, No W/C, No Accessory muscle use CARDS: RRR, S1, S2, No M/R/G, ABD: Soft, NT, ND, No R/G, + BS, No HSM, No Masses, PEG (No E/P) : Deferred Ext: C/C/E, Pulses 2+ B/L (DP, Rad): NEURO: A/O x 0, Strength and Sensation Grossly intact PSYCH: mood/affect normal SKIN: Warm not rashes Laboratory Tests Test 08/05/18 04:00 08/05/18 04:40 White Blood Count 8.0 K/UL (4.8-10.8) Red Blood Count 2.93 M/UL (4.70-6.10) L Hemoglobin 8.0 G/DL (14.2-18.0) L Hematocrit 24.9 % (42.0-52.0) L Mean Corpuscular Volume 85 FL (80-99) Mean Corpuscular Hemoglobin 27.2 PG (27.0-31.0) Mean Corpuscular Hemoglobin Concent 32.1 G/DL (32.0-36.0) Red Cell Distribution Width 14.3 % (11.6-14.8) Platelet Count 214 K/UL (150-450) Mean Platelet Volume 7.1 FL (6.5-10.1) Neutrophils (%) (Auto) 62.8 % (45.0-75.0) Lymphocytes (%) (Auto) 18.6 % (20.0-45.0) L Monocytes (%) (Auto) 12.2 % (1.0-10.0) H Eosinophils (%) (Auto) 5.7 % (0.0-3.0) H Basophils (%) (Auto) 0.7 % (0.0-2.0) Sodium Level 140 MMOL/L (136-145) Potassium Level 4.6 MMOL/L (3.5-5.1) Chloride Level 109 MMOL/L (98-107) H Carbon Dioxide Level 23 MMOL/L (21-32) Anion Gap 8 mmol/L (5-15) Blood Urea Nitrogen 17 mg/dL (7-18) Creatinine 1.2 MG/DL (0.55-1.30) Estimat Glomerular Filtration Rate > 60 mL/min (>60) Glucose Level 124 MG/DL (74-106) H Calcium Level 8.2 MG/DL (8.5-10.1) L Stool Occult Blood Positive (NEGATIVE) Current Medications Medications (Trade) Dose Ordered Sig/Wanda Route PRN Reason Start Time Stop Time Status Last Admin Dose Admin Acetaminophen (Tylenol) 650 mg Q4H PRN GT Mild Pain/Temp > 100.5 08/01/18 02:00 08/31/18 01:59 08/04/18 17:48 Albuterol/ Ipratropium (Albuterol/ Ipratropium) 3 ml Q4H PRN HHN Shortness of Breath 08/03/18 09:30 08/08/18 09:29 Chlorhexidine Gluconate (Jasmin-Hex 2%) 1 applic DAILY@2000 TOPIC 08/02/18 20:00 09/01/18 19:59 08/04/18 20:03 Dextrose/Sodium Chloride 1,000 ml @ 75 mls/hr [id number] IV 08/03/18 23:15 09/02/18 23:14 08/05/18 02:16 Iron Sucrose 100 mg/Sodium Chloride 60 ml @ 240 mls/hr BEDTIME IV 08/03/18 21:00 08/07/18 21:14 08/04/18 21:19 Lansoprazole (Prevacid) 30 mg BID GT 08/03/18 18:00 09/02/18 17:59 08/05/18 09:00 Levothyroxine Sodium (Synthroid) 25 mcg DAILY IV 08/04/18 09:00 09/03/18 08:59 08/05/18 10:23 Ondansetron HCl (Zofran) 4 mg Q6H PRN IVP Nausea & Vomiting 08/03/18 20:29 09/02/18 20:28 08/04/18 06:30 Trimethoprim/ Sulfamethoxazole (Bactrim-DS) 20 ml EVERY 12 HOURS GT 08/03/18 21:00 08/10/18 09:59 08/05/18 09:00 Lisy Lai M.D. Aug 05, 2018 17:54
[2018-08-05 19:59] VITALS: BP 124/67
[2018-08-05] MEDS: Dyna-Hex 2% Top Sol 2oz TOPIC SCH (20:26)
[2018-08-05] MEDS: Iron Sucrose 100 MG in NS 55 ML IV SCH (20:28)
--- NOTE | 2018-08-05 23:15 | Consultation ---
History of Present Illness General Chief Complaint: Gastrointestinal Bleed Reason for Consultation: UTI Present Illness HPI 67-year-old male with multiple medical problem and tracheostomy and feeding tube. He presents with chief complaint of coffee-ground emesis. the pt has been agitated and pw waxing and waning of consciousness. the pt is unable to make decisions and has a DPOA. Allergies: Coded Allergies: NO KNOWN DRUG ALLERGIES (Verified Allergy, Unknown, 09/11/16) Medication History Scheduled Docusate Sodium* (Docusate Sodium*), 100 MG GT DAILY, (Reported) Levothyroxine Sodium* (Levothyroxine Sodium*), 50 MCG GT DAILY, (Reported) Magnesium Hydroxide* (Milk Of Magnesia*), 30 ML GT HS, (Reported) Multivitamin Liquid* (Multi-Delyn*), 15 ML GT DAILY, (Reported) Omeprazole (Omeprazole), 20 MG ORAL DAILY, (Reported) Sucralfate* (Carafate*), 1 GM GT FOUR TIMES A DAY, (Reported) Scheduled PRN Acetaminophen (Acetaminophen), 640 MG GT Q4HR PRN for Prn Headache/Temp > 101, ( Reported) Bisacodyl (Dulcolax), 10 MG RC NEEDED PRN for IF MOM INEFFECTIVE, (Reported) Na Phos,M-B/Na Phos,Di-Ba* (Fleet Enema*), 133 ML RECTAL QOD PRN for IF DUCOLAX INEFFETIVE, (Reported) Miscellaneous Medications Unable to Obtain Medications (Unable To Obtain Meds), (Reported) Patient History Limited by: medical condition History Provided By: Medical Record, PMD Healthcare decision maker N/A Resuscitation status Full Code Advanced Directive on File No Past Medical/Surgical History Past Medical/Surgical History: (1) Hypokalemia (2) GI bleed (3) Psychosis (4) Sepsis (5) Severe protein-calorie malnutrition (6) Feeding by G-tube (7) Respiratory failure, [id number] (8) Anemia (9) Chronic respiratory failure (10) Septic shock (11) Esophagitis (12) Hypothyroidism (13) Aspiration pneumonia (14) Pyelonephritis (15) Protein-calorie malnutrition, severe (16) C. 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 (20) Severe erosive esophagitis (21) Upper GI bleed (22) Tracheostomy dependence (23) Iron deficiency (24) Alzheimer's dementia Review of Systems Psychiatric: Reports: prior hx, emotional problems, hallucinations Physical Exam General Appearance: lethargic, confused, agitated Last 24 Hour Vital Signs Date Time Temp Pulse Resp B/P (MAP) Pulse Ox O2 Delivery O2 Flow Rate FiO2 08/05/18 21:25 68 18 40 08/05/18 20:00 70 08/05/18 20:00 Mechanical Ventilator 08/05/18 20:00 40 08/05/18 19:59 98.2 80 20 124/67 (86) 99 08/05/18 19:30 65 16 40 08/05/18 16:41 74 20 40 08/05/18 16:09 Mechanical Ventilator 08/05/18 16:00 62 08/05/18 16:00 40 08/05/18 16:00 98.1 65 16 112/67 (82) 98 08/05/18 15:05 66 17 40 08/05/18 13:28 65 16 40 08/05/18 12:00 65 08/05/18 12:00 97.2 64 18 154/81 (105) 100 08/05/18 12:00 Mechanical Ventilator 08/05/18 10:33 76 22 40 08/05/18 09:29 66 16 40 08/05/18 08:00 40 08/05/18 08:00 Mechanical Ventilator 08/05/18 08:00 98.2 66 18 109/59 (76) 100 08/05/18 08:00 67 08/05/18 06:51 72 19 40 08/05/18 05:00 77 20 40 08/05/18 04:00 40 08/05/18 04:00 40 08/05/18 04:00 76 08/05/18 04:00 Mechanical Ventilator 08/05/18 04:00 98.1 82 18 119/72 (88) 100 08/05/18 02:54 74 18 40 08/05/18 00:43 72 20 40 08/05/18 00:00 75 08/05/18 00:00 Mechanical Ventilator 08/05/18 00:00 98.6 65 17 110/54 (72) 100 08/04/18 23:29 75 16 40 Intake and Output 08/04/18 08/05/18 19:00 07:00 Intake Total 1415 ml 1710 ml Output Total 400 ml 500 ml Balance 1015 ml 1210 ml Free Water 100 ml IV Total 825 ml 870 ml Tube Feeding 490 ml 840 ml Output Urine Total 400 ml 500 ml # Bowel Movements 4 1 Laboratory Tests Test 08/05/18 04:00 08/05/18 04:40 White Blood Count 8.0 K/UL (4.8-10.8) Red Blood Count 2.93 M/UL (4.70-6.10) L Hemoglobin 8.0 G/DL (14.2-18.0) L Hematocrit 24.9 % (42.0-52.0) L Mean Corpuscular Volume 85 FL (80-99) Mean Corpuscular Hemoglobin 27.2 PG (27.0-31.0) Mean Corpuscular Hemoglobin Concent 32.1 G/DL (32.0-36.0) Red Cell Distribution Width 14.3 % (11.6-14.8) Platelet Count 214 K/UL (150-450) Mean Platelet Volume 7.1 FL (6.5-10.1) Neutrophils (%) (Auto) 62.8 % (45.0-75.0) Lymphocytes (%) (Auto) 18.6 % (20.0-45.0) L Monocytes (%) (Auto) 12.2 % (1.0-10.0) H Eosinophils (%) (Auto) 5.7 % (0.0-3.0) H Basophils (%) (Auto) 0.7 % (0.0-2.0) Sodium Level 140 MMOL/L (136-145) Potassium Level 4.6 MMOL/L (3.5-5.1) Chloride Level 109 MMOL/L (98-107) H Carbon Dioxide Level 23 MMOL/L (21-32) Anion Gap 8 mmol/L (5-15) Blood Urea Nitrogen 17 mg/dL (7-18) Creatinine 1.2 MG/DL (0.55-1.30) Estimat Glomerular Filtration Rate > 60 mL/min (>60) Glucose Level 124 MG/DL (74-106) H Calcium Level 8.2 MG/DL (8.5-10.1) L Stool Occult Blood Positive (NEGATIVE) Height (Feet): 5 Height (Inches): 8.00 Weight (Pounds): 135 Medications Current Medications Medications (Trade) Dose Ordered Sig/Wanda Route PRN Reason Start Time Stop Time Status Last Admin Dose Admin Acetaminophen (Tylenol) 650 mg Q4H PRN GT Mild Pain/Temp > 100.5 08/01/18 02:00 08/31/18 01:59 08/04/18 17:48 Albuterol/ Ipratropium (Albuterol/ Ipratropium) 3 ml Q4H PRN HHN Shortness of Breath 08/03/18 09:30 08/08/18 09:29 Chlorhexidine Gluconate (Jasmin-Hex 2%) 1 applic DAILY@2000 TOPIC 08/02/18 20:00 09/01/18 19:59 08/05/18 20:26 Iron Sucrose 100 mg/Sodium Chloride 60 ml @ 240 mls/hr BEDTIME IV 08/03/18 21:00 08/07/18 21:14 08/04/18 21:19 Lansoprazole (Prevacid) 30 mg BID GT 08/03/18 18:00 09/02/18 17:59 08/05/18 18:00 Levothyroxine Sodium (Synthroid) 25 mcg DAILY IV 08/04/18 09:00 09/03/18 08:59 08/05/18 10:23 Ondansetron HCl (Zofran) 4 mg Q6H PRN IVP Nausea & Vomiting 08/03/18 20:29 09/02/18 20:28 08/04/18 06:30 Trimethoprim/ Sulfamethoxazole (Bactrim-DS) 20 ml EVERY 12 HOURS GT 08/03/18 21:00 08/10/18 09:59 08/05/18 20:26 Assessment/Plan Problem List: (1) Alzheimer's dementia ICD Codes: G30.9 - Alzheimer's disease, unspecified SNOMED: 40418588 (2) Psychosis ICD Codes: F29 - Psychosis SNOMED: 17377464 Assessment/Plan seroquel prn lacks cap[place] he has a Toma Phan MD Aug 05, 2018 23:15
[2018-08-06] VITALS: BP 123/72
[2018-08-06 04:00] VITALS: BP 105/65
[2018-08-06 07:25] LABS: BASOPHILS % (AUTO) 0.6 % (0.0-2.0); EOSINOPHILS % (AUTO) 5.5 % (0.0-3.0); HEMATOCRIT 28.8 % (42.0-52.0); HEMOGLOBIN 9.4 G/DL (14.2-18.0); LYMPHOCYTES % (AUTO) 17.9 % (20.0-45.0); MEAN CORPUSCULAR VOLUME 84 FL (80-99); MONOCYTES % (AUTO) 11.2 % (1.0-10.0); NEUTROPHILS % (AUTO) 64.9 % (45.0-75.0); PLATELET COUNT 232 K/UL (150-450); RED BLOOD COUNT 3.43 M/UL (4.70-6.10); RED CELL DISTRIBUTION WIDTH 14.3 % (11.6-14.8); WHITE BLOOD COUNT 9.4 K/UL (4.8-10.8)
[2018-08-06 07:53] LABS: ALANINE AMINOTRANSFERASE 17 U/L (12-78); ALBUMIN 1.5 G/DL (3.4-5.0); ALBUMIN/GLOBULIN RATIO 0.5 (1.0-2.7); ALKALINE PHOSPHATASE 84 U/L (46-116); ANION GAP 8 mmol/L (5-15); ASPARTATE AMINO TRANSFERASE 12 U/L (15-37); BLOOD UREA NITROGEN 14 mg/dL (7-18); CARBON DIOXIDE 18 MMOL/L (21-32); CHLORIDE 119 MMOL/L (98-107); CREATININE 0.8 MG/DL (0.55-1.30); PHOSPHORUS 1.5 MG/DL (2.5-4.9); POTASSIUM 3.1 MMOL/L (3.5-5.1); SODIUM 145 MMOL/L (136-145)
[2018-08-06 07:55] LABS: CALCIUM 5.9 MG/DL (8.5-10.1)
[2018-08-06 08:00] VITALS: BP 125/62
[2018-08-06] MEDS: Bactrim Susp 20ml GT SCH ×2 (08:03→20:19)
[2018-08-06 09:18] LABS: BILIRUBIN,TOTAL 0.1 MG/DL (0.2-1.0)
[2018-08-06] MEDS ORDERED: Calcium Gluconate 1gm/10ml vial IVP ONE (09:30)
[2018-08-06] MEDS ORDERED: Calcium Gluconate 1gm/10ml vial IVPB ONE (09:45)
[2018-08-06] MEDS ORDERED: Calcium Gluconate 1gm in NS 110ml IVPB SCH (10:30)
--- NOTE | 2018-08-06 10:38 | Nephrology Progress Note ---
Assessment/Plan Problem List: (1) Tracheostomy dependence (2) Hypokalemia (3) GI bleed Assessment GI bleed Anemia low Iron Low K resolved Plan today's lab possible error- to repeat DC IV - GT feeding K supplement Gastric support IV Iron Per GI Subjective ROS Limited/Unobtainable: Yes Objective Objective Last 24 Hour Vital Signs Date Time Temp Pulse Resp B/P (MAP) Pulse Ox O2 Delivery O2 Flow Rate FiO2 08/06/18 09:06 73 17 40 08/06/18 08:00 97.9 70 16 125/62 (83) 99 08/06/18 08:00 40 08/06/18 08:00 Mechanical Ventilator 08/06/18 08:00 74 08/06/18 07:22 72 23 40 08/06/18 05:19 74 20 40 08/06/18 04:00 66 08/06/18 04:00 98.6 86 16 105/65 (78) 100 08/06/18 04:00 Mechanical Ventilator 08/06/18 04:00 40 08/06/18 03:30 67 16 40 08/06/18 01:14 70 17 40 08/06/18 00:00 Mechanical Ventilator 08/06/18 00:00 98.6 81 22 123/72 (89) 99 08/06/18 00:00 69 08/05/18 23:30 72 18 40 08/05/18 23:23 66 16 Mechanical Ventilator 40 08/05/18 21:25 68 18 40 08/05/18 20:00 70 08/05/18 20:00 Mechanical Ventilator 08/05/18 20:00 40 08/05/18 19:59 98.2 80 20 124/67 (86) 99 08/05/18 19:30 65 16 40 08/05/18 16:41 74 20 40 08/05/18 16:09 Mechanical Ventilator 08/05/18 16:00 62 08/05/18 16:00 40 08/05/18 16:00 98.1 65 16 112/67 (82) 98 08/05/18 15:05 66 17 40 08/05/18 13:28 65 16 40 08/05/18 12:00 65 08/05/18 12:00 97.2 64 18 154/81 (105) 100 08/05/18 12:00 Mechanical Ventilator Intake and Output 08/05/18 08/06/18 19:00 07:00 Intake Total 1290 ml 860 ml Output Total 700 ml 600 ml Balance 590 ml 260 ml Free Water 200 ml 90 ml Tube Feeding 840 ml 770 ml Blood Product 250 ml Output Urine Total 700 ml 600 ml # Voids 1 # Bowel Movements 3 Laboratory Tests 08/06/18 06:00: White Blood Count 9.4, Red Blood Count 3.43L, Hemoglobin 9.4L, Hematocrit 28.8L , Mean Corpuscular Volume 84, Mean Corpuscular Hemoglobin 27.4, Mean Corpuscular Hemoglobin Concent 32.7, Red Cell Distribution Width 14.3, Platelet Count 232, Mean Platelet Volume 7.6, Neutrophils (%) (Auto) 64.9, Lymphocytes (% ) (Auto) 17.9L, Monocytes (%) (Auto) 11.2H, Eosinophils (%) (Auto) 5.5H, Basophils (%) (Auto) 0.6, Erythrocyte Sedimentation Rate 67H, Sodium Level 145, Potassium Level 3.1L, Chloride Level 119H, Carbon Dioxide Level 18L, Anion Gap 8 , Blood Urea Nitrogen 14, Creatinine 0.8, Estimat Glomerular Filtration Rate > 60, Glucose Level 82, Calcium Level 5.9#*L, Phosphorus Level 1.5L, Magnesium Level 1.0L, Total Bilirubin 0.1L, Aspartate Amino Transf (AST/SGOT) 12L, Alanine Aminotransferase (ALT/SGPT) 17, Alkaline Phosphatase 84, C-Reactive Protein, Quantitative 2.5H, Total Protein 4.6L, Albumin 1.5L, Globulin 3.1, Albumin/Globulin Ratio 0.5L 08/06/18 10:25: Sodium Level [Pending], Potassium Level [Pending], Chloride Level [Pending], Carbon Dioxide Level [Pending], Blood Urea Nitrogen [Pending], Creatinine [ Pending], Estimat Glomerular Filtration Rate [Pending], Glucose Level [Pending] , Calcium Level [Pending], Phosphorus Level [Pending], Magnesium Level [Pending] , Total Bilirubin [Pending], Aspartate Amino Transf (AST/SGOT) [Pending], Alanine Aminotransferase (ALT/SGPT) [Pending], Alkaline Phosphatase [Pending], Total Protein [Pending], Albumin [Pending], Globulin [Pending] Height (Feet): 5 Height (Inches): 8.00 Weight (Pounds): 135 General Appearance: no apparent distress Objective no change Sav Salvador MD Aug 06, 2018 10:38
[2018-08-06 11:12] LABS: ANION GAP 7 mmol/L (5-15); BLOOD UREA NITROGEN 20 mg/dL (7-18); CALCIUM 8.9 MG/DL (8.5-10.1); CARBON DIOXIDE 25 MMOL/L (21-32); CHLORIDE 107 MMOL/L (98-107); CREATININE 1.2 MG/DL (0.55-1.30); POTASSIUM 5.2 MMOL/L (3.5-5.1); SODIUM 139 MMOL/L (136-145)
[2018-08-06 11:24] LABS: ALANINE AMINOTRANSFERASE 22 U/L (12-78); ALBUMIN 2.5 G/DL (3.4-5.0); ALBUMIN/GLOBULIN RATIO 0.5 (1.0-2.7); ALKALINE PHOSPHATASE 127 U/L (46-116); ASPARTATE AMINO TRANSFERASE 18 U/L (15-37); BILIRUBIN,TOTAL 0.2 MG/DL (0.2-1.0); PHOSPHORUS 2.5 MG/DL (2.5-4.9)
--- NOTE | 2018-08-06 11:53 | Pulmonology Progress Note ---
Assessment/Plan Problems: (1) Upper GI bleed (2) Anemia (3) Chronic respiratory failure (4) Sepsis (5) Alzheimer's dementia (6) Severe protein-calorie malnutrition (7) Feeding by G-tube Assessment/Plan Ca supplement continue abx tolerating feeding still lots of secretions check cultures wbc decreasing ID evaluation appreciated H2 blockers prbc prn, ( consent signed, pt doesn't have any DPOA or relatives) dvt prophylaxis Subjective ROS Limited/Unobtainable: Yes Constitutional: Reports: no symptoms HEENT: Repors: no symptoms Respiratory: Reports: no symptoms Allergies: Coded Allergies: NO KNOWN DRUG ALLERGIES (Verified Allergy, Unknown, 09/11/16) Objective Last 24 Hour Vital Signs Date Time Temp Pulse Resp B/P (MAP) Pulse Ox O2 Delivery O2 Flow Rate FiO2 08/06/18 11:20 70 20 40 08/06/18 09:06 73 17 40 08/06/18 08:00 97.9 70 16 125/62 (83) 99 08/06/18 08:00 40 08/06/18 08:00 Mechanical Ventilator 08/06/18 08:00 74 08/06/18 07:22 72 23 40 08/06/18 05:19 74 20 40 08/06/18 04:00 66 08/06/18 04:00 98.6 86 16 105/65 (78) 100 08/06/18 04:00 Mechanical Ventilator 08/06/18 04:00 40 08/06/18 03:30 67 16 40 08/06/18 01:14 70 17 40 08/06/18 00:00 Mechanical Ventilator 08/06/18 00:00 98.6 81 22 123/72 (89) 99 08/06/18 00:00 69 08/05/18 23:30 72 18 40 08/05/18 23:23 66 16 Mechanical Ventilator 40 08/05/18 21:25 68 18 40 08/05/18 20:00 70 08/05/18 20:00 Mechanical Ventilator 08/05/18 20:00 40 08/05/18 19:59 98.2 80 20 124/67 (86) 99 08/05/18 19:30 65 16 40 08/05/18 16:41 74 20 40 08/05/18 16:09 Mechanical Ventilator 08/05/18 16:00 62 08/05/18 16:00 40 08/05/18 16:00 98.1 65 16 112/67 (82) 98 08/05/18 15:05 66 17 40 08/05/18 13:28 65 16 40 08/05/18 12:00 65 08/05/18 12:00 97.2 64 18 154/81 (105) 100 08/05/18 12:00 Mechanical Ventilator Intake and Output 08/05/18 08/06/18 19:00 07:00 Intake Total 1290 ml 860 ml Output Total 700 ml 600 ml Balance 590 ml 260 ml Free Water 200 ml 90 ml Tube Feeding 840 ml 770 ml Blood Product 250 ml Output Urine Total 700 ml 600 ml # Voids 1 # Bowel Movements 3 General Appearance: cachetic HEENT: normocephalic, atraumatic Respiratory/Chest: chest wall non-tender Cardiovascular: normal peripheral pulses, normal rate Abdomen: normal bowel sounds, soft, non tender Genitourinary: normal external genitalia Extremities: no clubbing Skin: no lesions 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 Laboratory Tests 08/06/18 06:00: White Blood Count 9.4, Red Blood Count 3.43L, Hemoglobin 9.4L, Hematocrit 28.8L , Mean Corpuscular Volume 84, Mean Corpuscular Hemoglobin 27.4, Mean Corpuscular Hemoglobin Concent 32.7, Red Cell Distribution Width 14.3, Platelet Count 232, Mean Platelet Volume 7.6, Neutrophils (%) (Auto) 64.9, Lymphocytes (% ) (Auto) 17.9L, Monocytes (%) (Auto) 11.2H, Eosinophils (%) (Auto) 5.5H, Basophils (%) (Auto) 0.6, Erythrocyte Sedimentation Rate 67H, Sodium Level 145, Potassium Level 3.1L, Chloride Level 119H, Carbon Dioxide Level 18L, Anion Gap 8 , Blood Urea Nitrogen 14, Creatinine 0.8, Estimat Glomerular Filtration Rate > 60, Glucose Level 82, Calcium Level 5.9#*L, Phosphorus Level 1.5L, Magnesium Level 1.0L, Total Bilirubin 0.1L, Aspartate Amino Transf (AST/SGOT) 12L, Alanine Aminotransferase (ALT/SGPT) 17, Alkaline Phosphatase 84, C-Reactive Protein, Quantitative 2.5H, Total Protein 4.6L, Albumin 1.5L, Globulin 3.1, Albumin/Globulin Ratio 0.5L 08/06/18 10:25: Sodium Level 139, Potassium Level 5.2#H, Chloride Level 107, Carbon Dioxide Level 25, Anion Gap 7, Blood Urea Nitrogen 20H, Creatinine 1.2, Estimat Glomerular Filtration Rate > 60, Glucose Level 107H, Calcium Level 8.9#, Phosphorus Level 2.5, Magnesium Level 1.8, Total Bilirubin 0.2, Aspartate Amino Transf (AST/SGOT) 18, Alanine Aminotransferase (ALT/SGPT) 22, Alkaline Phosphatase 127H, Total Protein 7.5#, Albumin 2.5L, Globulin 5.0, Albumin/ Globulin Ratio 0.5L Current Medications Medications (Trade) Dose Ordered Sig/Wanda Route PRN Reason Start Time Stop Time Status Last Admin Dose Admin Acetaminophen (Tylenol) 650 mg Q4H PRN GT Mild Pain/Temp > 100.5 08/01/18 02:00 08/31/18 01:59 08/04/18 17:48 Albuterol/ Ipratropium (Albuterol/ Ipratropium) 3 ml Q4H PRN HHN Shortness of Breath 08/03/18 09:30 08/08/18 09:29 Chlorhexidine Gluconate (Jasmin-Hex 2%) 1 applic DAILY@2000 TOPIC 08/02/18 20:00 09/01/18 19:59 08/05/18 20:26 Iron Sucrose 100 mg/Sodium Chloride 60 ml @ 240 mls/hr BEDTIME IV 08/03/18 21:00 08/07/18 21:14 08/04/18 21:19 Lansoprazole (Prevacid) 30 mg BID GT 08/03/18 18:00 09/02/18 17:59 08/06/18 08:03 Levothyroxine Sodium (Synthroid) 25 mcg DAILY IV 08/04/18 09:00 09/03/18 08:59 08/06/18 09:19 Ondansetron HCl (Zofran) 4 mg Q6H PRN IVP Nausea & Vomiting 08/03/18 20:29 09/02/18 20:28 08/04/18 06:30 Trimethoprim/ Sulfamethoxazole (Bactrim-DS) 20 ml EVERY 12 HOURS GT 08/03/18 21:00 08/10/18 09:59 08/06/18 08:03 Huma Keating MD Aug 06, 2018 11:53
[2018-08-06 12:00] VITALS: BP 110/49
--- NOTE | 2018-08-06 13:02 | GI Progress Note ---
Assessment/Plan Problems: (1) Iron deficiency ICD Codes: E61.1 - Iron deficiency SNOMED: 17866604 (2) Upper GI bleed ICD Codes: K92.2 - Upper gastrointestinal hemorrhage SNOMED: 39585125 (3) Severe erosive esophagitis (4) Malfunction of gastrostomy tube ICD Codes: K94.23 - Gastrostomy malfunction SNOMED: 226401115 (5) Protein-calorie malnutrition, severe ICD Codes: E43 - Unspecified severe protein-calorie malnutrition SNOMED: 933142425 (6) Esophagitis ICD Codes: K20.9 - Esophagitis SNOMED: 02161433 (7) Feeding by G-tube ICD Codes: Z93.1 - Gastrostomy status SNOMED: 225094068, 430762291 (8) Severe protein-calorie malnutrition ICD Codes: E43 - Unspecified severe protein-calorie malnutrition SNOMED: 419644091 Status: stable, progressing Status Narrative Discussed with Dr. Wilson. Assessment/Plan Assessment - Dark stools/ Anemia - severe GERD with stricture - OBS - Resp failure, trach - s/p GT - Contractures Recommendations - IVF - PPI - Follow H&H - Resume TF - fu labs Subjective Subjective limited Objective Last 24 Hour Vital Signs Date Time Temp Pulse Resp B/P (MAP) Pulse Ox O2 Delivery O2 Flow Rate FiO2 08/06/18 12:00 Mechanical Ventilator 08/06/18 12:00 40 08/06/18 11:20 70 20 40 08/06/18 09:06 73 17 40 08/06/18 08:00 97.9 70 16 125/62 (83) 99 08/06/18 08:00 40 08/06/18 08:00 Mechanical Ventilator 08/06/18 08:00 74 08/06/18 07:22 72 23 40 08/06/18 05:19 74 20 40 08/06/18 04:00 66 08/06/18 04:00 98.6 86 16 105/65 (78) 100 08/06/18 04:00 Mechanical Ventilator 08/06/18 04:00 40 08/06/18 03:30 67 16 40 08/06/18 01:14 70 17 40 08/06/18 00:00 Mechanical Ventilator 08/06/18 00:00 98.6 81 22 123/72 (89) 99 08/06/18 00:00 69 08/05/18 23:30 72 18 40 08/05/18 23:23 66 16 Mechanical Ventilator 40 08/05/18 21:25 68 18 40 08/05/18 20:00 70 08/05/18 20:00 Mechanical Ventilator 08/05/18 20:00 40 08/05/18 19:59 98.2 80 20 124/67 (86) 99 08/05/18 19:30 65 16 40 08/05/18 16:41 74 20 40 08/05/18 16:09 Mechanical Ventilator 08/05/18 16:00 62 08/05/18 16:00 40 08/05/18 16:00 98.1 65 16 112/67 (82) 98 08/05/18 15:05 66 17 40 08/05/18 13:28 65 16 40 Intake and Output 08/05/18 08/06/18 19:00 07:00 Intake Total 1290 ml 860 ml Output Total 700 ml 600 ml Balance 590 ml 260 ml Free Water 200 ml 90 ml Tube Feeding 840 ml 770 ml Blood Product 250 ml Output Urine Total 700 ml 600 ml # Voids 1 # Bowel Movements 3 Laboratory Tests Test 08/06/18 06:00 08/06/18 10:25 White Blood Count 9.4 K/UL (4.8-10.8) Red Blood Count 3.43 M/UL (4.70-6.10) L Hemoglobin 9.4 G/DL (14.2-18.0) L Hematocrit 28.8 % (42.0-52.0) L Mean Corpuscular Volume 84 FL (80-99) Mean Corpuscular Hemoglobin 27.4 PG (27.0-31.0) Mean Corpuscular Hemoglobin Concent 32.7 G/DL (32.0-36.0) Red Cell Distribution Width 14.3 % (11.6-14.8) Platelet Count 232 K/UL (150-450) Mean Platelet Volume 7.6 FL (6.5-10.1) Neutrophils (%) (Auto) 64.9 % (45.0-75.0) Lymphocytes (%) (Auto) 17.9 % (20.0-45.0) L Monocytes (%) (Auto) 11.2 % (1.0-10.0) H Eosinophils (%) (Auto) 5.5 % (0.0-3.0) H Basophils (%) (Auto) 0.6 % (0.0-2.0) Erythrocyte Sedimentation Rate 67 MM/HR (0-20) H Sodium Level 145 MMOL/L (136-145) 139 MMOL/L (136-145) Potassium Level 3.1 MMOL/L (3.5-5.1) L 5.2 MMOL/L (3.5-5.1) #H Chloride Level 119 MMOL/L (98-107) H 107 MMOL/L (98-107) Carbon Dioxide Level 18 MMOL/L (21-32) L 25 MMOL/L (21-32) Anion Gap 8 mmol/L (5-15) 7 mmol/L (5-15) Blood Urea Nitrogen 14 mg/dL (7-18) 20 mg/dL (7-18) H Creatinine 0.8 MG/DL (0.55-1.30) 1.2 MG/DL (0.55-1.30) Estimat Glomerular Filtration Rate > 60 mL/min (>60) > 60 mL/min (>60) Glucose Level 82 MG/DL (74-106) 107 MG/DL (74-106) H Calcium Level 5.9 MG/DL (8.5-10.1) #*L 8.9 MG/DL (8.5-10.1) # Phosphorus Level 1.5 MG/DL (2.5-4.9) L 2.5 MG/DL (2.5-4.9) Magnesium Level 1.0 MG/DL (1.8-2.4) L 1.8 MG/DL (1.8-2.4) Total Bilirubin 0.1 MG/DL (0.2-1.0) L 0.2 MG/DL (0.2-1.0) Aspartate Amino Transf (AST/SGOT) 12 U/L (15-37) L 18 U/L (15-37) Alanine Aminotransferase (ALT/SGPT) 17 U/L (12-78) 22 U/L (12-78) Alkaline Phosphatase 84 U/L (46-116) 127 U/L (46-116) H C-Reactive Protein, Quantitative 2.5 mg/dL (0.00-0.90) H Total Protein 4.6 G/DL (6.4-8.2) L 7.5 G/DL (6.4-8.2) # Albumin 1.5 G/DL (3.4-5.0) L 2.5 G/DL (3.4-5.0) L Globulin 3.1 g/dL 5.0 g/dL Albumin/Globulin Ratio 0.5 (1.0-2.7) L 0.5 (1.0-2.7) L Height (Feet): 5 Height (Inches): 8.00 Weight (Pounds): 135 General Appearance: WD/WN, no apparent distress, alert Cardiovascular: normal rate Respiratory/Chest: normal breath sounds, no respiratory distress Abdominal Exam: normal bowel sounds, non tender, soft, GT site - c/d/i Extremities: normal range of motion, non-tender Emanuel Quesada NP Aug 06, 2018 13:02
--- NOTE | 2018-08-06 13:08 | Infectious Diseases Prog Note ---
Assessment/Plan Assessment/Plan Assessment 67 yo male who is vent dependent and was brought to the ED on 07/31/18 with GIB and increased sputum. UTI UA positive 08/01/18 UCxESBL Proteus Sen to erta, zosyn and bactrim; 08/02/18 UCx ESBL P.mirabilis Increase oral secretions -CXR 08/05: Increased bilateral interstitial edema over one day.Suspect developing left pleural effusion No evidence for PNA on CXR -sp cx ESBL P.mirabils (S Bactrim), S. maltophilia (S Bactrim) Leukocytosis up to 13 Now resolved Afebrile Hx Constipation Chronic respiratory failure, Hypothyroidism GERD Hypertension Hx C. diff Dysphagia, Esophagitis GI bleed Anemia. Trached vent depeendent PEG Plan - Continue Bactrim PO/NG DS BID #4/7 (End date 08/09/18) -08/03 SP Vancomycin and Cefepime #3 -08/01 SP Ceftriaxone x1 - Monitor CBC and temps -Trach/oral care -Aspiration precautions Thank you for this consult. We will continue to follow the patient during this hospitalization. Subjective Allergies: Coded Allergies: NO KNOWN DRUG ALLERGIES (Verified Allergy, Unknown, 09/11/16) Subjective afebrile no leukocytosis Fio2 40% Objective Vital Signs Last 24 Hour Vital Signs Date Time Temp Pulse Resp B/P (MAP) Pulse Ox O2 Delivery O2 Flow Rate FiO2 08/06/18 12:00 Mechanical Ventilator 08/06/18 12:00 40 08/06/18 11:20 70 20 40 08/06/18 09:06 73 17 40 08/06/18 08:00 97.9 70 16 125/62 (83) 99 08/06/18 08:00 40 08/06/18 08:00 Mechanical Ventilator 08/06/18 08:00 74 08/06/18 07:22 72 23 40 08/06/18 05:19 74 20 40 08/06/18 04:00 66 08/06/18 04:00 98.6 86 16 105/65 (78) 100 08/06/18 04:00 Mechanical Ventilator 08/06/18 04:00 40 08/06/18 03:30 67 16 40 08/06/18 01:14 70 17 40 08/06/18 00:00 Mechanical Ventilator 08/06/18 00:00 98.6 81 22 123/72 (89) 99 08/06/18 00:00 69 08/05/18 23:30 72 18 40 08/05/18 23:23 66 16 Mechanical Ventilator 40 08/05/18 21:25 68 18 40 08/05/18 20:00 70 08/05/18 20:00 Mechanical Ventilator 08/05/18 20:00 40 08/05/18 19:59 98.2 80 20 124/67 (86) 99 08/05/18 19:30 65 16 40 08/05/18 16:41 74 20 40 08/05/18 16:09 Mechanical Ventilator 08/05/18 16:00 62 08/05/18 16:00 40 08/05/18 16:00 98.1 65 16 112/67 (82) 98 08/05/18 15:05 66 17 40 08/05/18 13:28 65 16 40 Height (Feet): 5 Height (Inches): 8.00 Weight (Pounds): 135 Objective Gen: NAD. Trached HEENT: NCAT, MMM, eyes open not following No Oral lesion, no scleral icterus NECK: full range of motion, supple, no meningismus, No LAD, No JVD LUNGS: CTAB, No W/C, No Accessory muscle use CARDS: RRR, S1, S2, No M/R/G, ABD: Soft, NT, ND, No R/G, + BS, No HSM, No Masses, PEG (No E/P) : Deferred Ext: C/C/E, Pulses 2+ B/L (DP, Rad): NEURO: A/O x 0, Strength and Sensation Grossly intact PSYCH: mood/affect normal SKIN: Warm not rashes Laboratory Tests Test 08/06/18 06:00 08/06/18 10:25 White Blood Count 9.4 K/UL (4.8-10.8) Red Blood Count 3.43 M/UL (4.70-6.10) L Hemoglobin 9.4 G/DL (14.2-18.0) L Hematocrit 28.8 % (42.0-52.0) L Mean Corpuscular Volume 84 FL (80-99) Mean Corpuscular Hemoglobin 27.4 PG (27.0-31.0) Mean Corpuscular Hemoglobin Concent 32.7 G/DL (32.0-36.0) Red Cell Distribution Width 14.3 % (11.6-14.8) Platelet Count 232 K/UL (150-450) Mean Platelet Volume 7.6 FL (6.5-10.1) Neutrophils (%) (Auto) 64.9 % (45.0-75.0) Lymphocytes (%) (Auto) 17.9 % (20.0-45.0) L Monocytes (%) (Auto) 11.2 % (1.0-10.0) H Eosinophils (%) (Auto) 5.5 % (0.0-3.0) H Basophils (%) (Auto) 0.6 % (0.0-2.0) Erythrocyte Sedimentation Rate 67 MM/HR (0-20) H Sodium Level 145 MMOL/L (136-145) 139 MMOL/L (136-145) Potassium Level 3.1 MMOL/L (3.5-5.1) L 5.2 MMOL/L (3.5-5.1) #H Chloride Level 119 MMOL/L (98-107) H 107 MMOL/L (98-107) Carbon Dioxide Level 18 MMOL/L (21-32) L 25 MMOL/L (21-32) Anion Gap 8 mmol/L (5-15) 7 mmol/L (5-15) Blood Urea Nitrogen 14 mg/dL (7-18) 20 mg/dL (7-18) H Creatinine 0.8 MG/DL (0.55-1.30) 1.2 MG/DL (0.55-1.30) Estimat Glomerular Filtration Rate > 60 mL/min (>60) > 60 mL/min (>60) Glucose Level 82 MG/DL (74-106) 107 MG/DL (74-106) H Calcium Level 5.9 MG/DL (8.5-10.1) #*L 8.9 MG/DL (8.5-10.1) # Phosphorus Level 1.5 MG/DL (2.5-4.9) L 2.5 MG/DL (2.5-4.9) Magnesium Level 1.0 MG/DL (1.8-2.4) L 1.8 MG/DL (1.8-2.4) Total Bilirubin 0.1 MG/DL (0.2-1.0) L 0.2 MG/DL (0.2-1.0) Aspartate Amino Transf (AST/SGOT) 12 U/L (15-37) L 18 U/L (15-37) Alanine Aminotransferase (ALT/SGPT) 17 U/L (12-78) 22 U/L (12-78) Alkaline Phosphatase 84 U/L (46-116) 127 U/L (46-116) H C-Reactive Protein, Quantitative 2.5 mg/dL (0.00-0.90) H Total Protein 4.6 G/DL (6.4-8.2) L 7.5 G/DL (6.4-8.2) # Albumin 1.5 G/DL (3.4-5.0) L 2.5 G/DL (3.4-5.0) L Globulin 3.1 g/dL 5.0 g/dL Albumin/Globulin Ratio 0.5 (1.0-2.7) L 0.5 (1.0-2.7) L Current Medications Medications (Trade) Dose Ordered Sig/Wanda Route PRN Reason Start Time Stop Time Status Last Admin Dose Admin Acetaminophen (Tylenol) 650 mg Q4H PRN GT Mild Pain/Temp > 100.5 08/01/18 02:00 08/31/18 01:59 08/04/18 17:48 Albuterol/ Ipratropium (Albuterol/ Ipratropium) 3 ml Q4H PRN HHN Shortness of Breath 08/03/18 09:30 08/08/18 09:29 Chlorhexidine Gluconate (Jasmin-Hex 2%) 1 applic DAILY@1999 TOPIC 08/02/18 20:00 09/01/18 19:59 08/05/18 20:26 Iron Sucrose 100 mg/Sodium Chloride 60 ml @ 240 mls/hr BEDTIME IV 08/03/18 21:00 08/07/18 21:14 08/04/18 21:19 Lansoprazole (Prevacid) 30 mg BID GT 08/03/18 18:00 09/02/18 17:59 08/06/18 08:03 Levothyroxine Sodium (Synthroid) 25 mcg DAILY IV 08/04/18 09:00 09/03/18 08:59 08/06/18 09:19 Ondansetron HCl (Zofran) 4 mg Q6H PRN IVP Nausea & Vomiting 08/03/18 20:29 09/02/18 20:28 08/04/18 06:30 Trimethoprim/ Sulfamethoxazole (Bactrim-DS) 20 ml EVERY 12 HOURS GT 08/03/18 21:00 08/10/18 09:59 08/06/18 08:03 Lisy Lai M.D. Aug 06, 2018 13:08
--- NOTE | 2018-08-06 13:30 | General Progress Note ---
Assessment/Plan Problem List: (1) GI bleed ICD Codes: K92.2 - Gastrointestinal hemorrhage, unspecified SNOMED: 97427832 (2) Respiratory failure, [id number] ICD Codes: J96.20 - Respiratory failure, [id number] SNOMED: 84157057 (3) Anemia ICD Codes: D64.9 - Anemia, unspecified SNOMED: 550262636 (4) Hypothyroidism ICD Codes: E03.9 - Hypothyroidism, unspecified SNOMED: 39392486 Status: stable, progressing Assessment/Plan vent abx prn cbc bmp am dc planning Subjective Constitutional: Reports: weakness Allergies: Coded Allergies: NO KNOWN DRUG ALLERGIES (Verified Allergy, Unknown, 09/11/16) All Systems: reviewed and negative except above Subjective trach vent altered calm Objective Last 24 Hour Vital Signs Date Time Temp Pulse Resp B/P (MAP) Pulse Ox O2 Delivery O2 Flow Rate FiO2 08/06/18 13:14 71 22 40 08/06/18 12:00 Mechanical Ventilator 08/06/18 12:00 97.9 69 16 110/49 (69) 98 08/06/18 12:00 40 08/06/18 11:20 70 20 40 08/06/18 09:06 73 17 40 08/06/18 08:00 97.9 70 16 125/62 (83) 99 08/06/18 08:00 40 08/06/18 08:00 Mechanical Ventilator 08/06/18 08:00 74 08/06/18 07:22 72 23 40 08/06/18 05:19 74 20 40 08/06/18 04:00 66 08/06/18 04:00 98.6 86 16 105/65 (78) 100 08/06/18 04:00 Mechanical Ventilator 08/06/18 04:00 40 08/06/18 03:30 67 16 40 08/06/18 01:14 70 17 40 08/06/18 00:00 Mechanical Ventilator 08/06/18 00:00 98.6 81 22 123/72 (89) 99 08/06/18 00:00 69 08/05/18 23:30 72 18 40 08/05/18 23:23 66 16 Mechanical Ventilator 40 08/05/18 21:25 68 18 40 08/05/18 20:00 70 08/05/18 20:00 Mechanical Ventilator 08/05/18 20:00 40 08/05/18 19:59 98.2 80 20 124/67 (86) 99 08/05/18 19:30 65 16 40 08/05/18 16:41 74 20 40 08/05/18 16:09 Mechanical Ventilator 08/05/18 16:00 62 08/05/18 16:00 40 08/05/18 16:00 98.1 65 16 112/67 (82) 98 08/05/18 15:05 66 17 40 Intake and Output 08/05/18 08/06/18 19:00 07:00 Intake Total 1290 ml 860 ml Output Total 700 ml 600 ml Balance 590 ml 260 ml Free Water 200 ml 90 ml Tube Feeding 840 ml 770 ml Blood Product 250 ml Output Urine Total 700 ml 600 ml # Voids 1 # Bowel Movements 3 Laboratory Tests 08/06/18 06:00: White Blood Count 9.4, Red Blood Count 3.43L, Hemoglobin 9.4L, Hematocrit 28.8L , Mean Corpuscular Volume 84, Mean Corpuscular Hemoglobin 27.4, Mean Corpuscular Hemoglobin Concent 32.7, Red Cell Distribution Width 14.3, Platelet Count 232, Mean Platelet Volume 7.6, Neutrophils (%) (Auto) 64.9, Lymphocytes (% ) (Auto) 17.9L, Monocytes (%) (Auto) 11.2H, Eosinophils (%) (Auto) 5.5H, Basophils (%) (Auto) 0.6, Erythrocyte Sedimentation Rate 67H, Sodium Level 145, Potassium Level 3.1L, Chloride Level 119H, Carbon Dioxide Level 18L, Anion Gap 8 , Blood Urea Nitrogen 14, Creatinine 0.8, Estimat Glomerular Filtration Rate > 60, Glucose Level 82, Calcium Level 5.9#*L, Phosphorus Level 1.5L, Magnesium Level 1.0L, Total Bilirubin 0.1L, Aspartate Amino Transf (AST/SGOT) 12L, Alanine Aminotransferase (ALT/SGPT) 17, Alkaline Phosphatase 84, C-Reactive Protein, Quantitative 2.5H, Total Protein 4.6L, Albumin 1.5L, Globulin 3.1, Albumin/Globulin Ratio 0.5L 08/06/18 10:25: Sodium Level 139, Potassium Level 5.2#H, Chloride Level 107, Carbon Dioxide Level 25, Anion Gap 7, Blood Urea Nitrogen 20H, Creatinine 1.2, Estimat Glomerular Filtration Rate > 60, Glucose Level 107H, Calcium Level 8.9#, Phosphorus Level 2.5, Magnesium Level 1.8, Total Bilirubin 0.2, Aspartate Amino Transf (AST/SGOT) 18, Alanine Aminotransferase (ALT/SGPT) 22, Alkaline Phosphatase 127H, Total Protein 7.5#, Albumin 2.5L, Globulin 5.0, Albumin/ Globulin Ratio 0.5L Height (Feet): 5 Height (Inches): 8.00 Weight (Pounds): 135 General Appearance: lethargic EENT: normal ENT inspection Neck: normal alignment Cardiovascular: normal peripheral pulses, normal rate, regular rhythm Respiratory/Chest: chest wall non-tender, lungs clear, normal breath sounds Abdomen: normal bowel sounds, non tender, soft Extremities: normal inspection Edema: no edema noted Arm (L), no edema noted Arm (R), no edema noted Leg (L), no edema noted Leg (R), no edema noted Pedal (L), no edema noted Pedal (R), no edema noted Generalized Neurologic: motor weakness Skin: normal pigmentation, warm/dry Gato Viveros DO Aug 06, 2018 13:30
--- NOTE | 2018-08-06 14:45 | General Progress Note ---
Assessment/Plan Status: stable Assessment/Plan # Anemia of iron deficiency due to underlying chronic medical issues, multifactorial. --> Anemia w/u has been reviewed. Ferritin at 74 --> No evidence of hemolysis is noted, peripheral smear has been reviewed. --> Hgb goal >7. Transfuse prn. --> IV iron x5 days. End 08/07 # Leukocytosis. Likely related to underlying infection versus reactive process. --> WBC has improved/resolved --> Peripheral has been reviewed, no blasts noted --> Medications have been reviewed --> Imaging has been reviewed. CXR shows Suboptimal positioning. No interval consolidation, overt edema or other acute cardiopulmonary findings. --> Urine culture shows gram negative bacteria --> Completed abx, empiric treatment # Upper GI vomiting bleed. GI is following, appreciate recs. --> protonix as needed # Trach and PEG. # Nonverbal status # Dyshagia s/p peg # Resp failure s/p trach/vent GREATLY APPRECIATE CONSULTATION. Subjective Date patient seen: Aug 06, 2018 ROS Limited/Unobtainable: Yes Hematologic/Lymphatic: Reports: anemia Allergies: Coded Allergies: NO KNOWN DRUG ALLERGIES (Verified Allergy, Unknown, 09/11/16) Subjective No acute events. H/H stable. VS stable. Nonverbal. Objective Last 24 Hour Vital Signs Date Time Temp Pulse Resp B/P (MAP) Pulse Ox O2 Delivery O2 Flow Rate FiO2 08/06/18 13:14 71 22 40 08/06/18 12:00 69 08/06/18 12:00 Mechanical Ventilator 08/06/18 12:00 97.9 69 16 110/49 (69) 98 08/06/18 12:00 40 08/06/18 11:20 70 20 40 08/06/18 09:06 73 17 40 08/06/18 08:00 97.9 70 16 125/62 (83) 99 08/06/18 08:00 40 08/06/18 08:00 Mechanical Ventilator 08/06/18 08:00 74 08/06/18 07:22 72 23 40 08/06/18 05:19 74 20 40 08/06/18 04:00 66 08/06/18 04:00 98.6 86 16 105/65 (78) 100 08/06/18 04:00 Mechanical Ventilator 08/06/18 04:00 40 08/06/18 03:30 67 16 40 08/06/18 01:14 70 17 40 08/06/18 00:00 Mechanical Ventilator 08/06/18 00:00 98.6 81 22 123/72 (89) 99 08/06/18 00:00 69 08/05/18 23:30 72 18 40 08/05/18 23:23 66 16 Mechanical Ventilator 40 08/05/18 21:25 68 18 40 08/05/18 20:00 70 08/05/18 20:00 Mechanical Ventilator 08/05/18 20:00 40 08/05/18 19:59 98.2 80 20 124/67 (86) 99 08/05/18 19:30 65 16 40 08/05/18 16:41 74 20 40 08/05/18 16:09 Mechanical Ventilator 08/05/18 16:00 62 08/05/18 16:00 40 08/05/18 16:00 98.1 65 16 112/67 (82) 98 08/05/18 15:05 66 17 40 Intake and Output 08/05/18 08/06/18 19:00 07:00 Intake Total 1290 ml 860 ml Output Total 700 ml 600 ml Balance 590 ml 260 ml Free Water 200 ml 90 ml Tube Feeding 840 ml 770 ml Blood Product 250 ml Output Urine Total 700 ml 600 ml # Voids 1 # Bowel Movements 3 Laboratory Tests 08/06/18 06:00: White Blood Count 9.4, Red Blood Count 3.43L, Hemoglobin 9.4L, Hematocrit 28.8L , Mean Corpuscular Volume 84, Mean Corpuscular Hemoglobin 27.4, Mean Corpuscular Hemoglobin Concent 32.7, Red Cell Distribution Width 14.3, Platelet Count 232, Mean Platelet Volume 7.6, Neutrophils (%) (Auto) 64.9, Lymphocytes (% ) (Auto) 17.9L, Monocytes (%) (Auto) 11.2H, Eosinophils (%) (Auto) 5.5H, Basophils (%) (Auto) 0.6, Erythrocyte Sedimentation Rate 67H, Sodium Level 145, Potassium Level 3.1L, Chloride Level 119H, Carbon Dioxide Level 18L, Anion Gap 8 , Blood Urea Nitrogen 14, Creatinine 0.8, Estimat Glomerular Filtration Rate > 60, Glucose Level 82, Calcium Level 5.9#*L, Phosphorus Level 1.5L, Magnesium Level 1.0L, Total Bilirubin 0.1L, Aspartate Amino Transf (AST/SGOT) 12L, Alanine Aminotransferase (ALT/SGPT) 17, Alkaline Phosphatase 84, C-Reactive Protein, Quantitative 2.5H, Total Protein 4.6L, Albumin 1.5L, Globulin 3.1, Albumin/Globulin Ratio 0.5L 08/06/ 10:25: Sodium Level 139, Potassium Level 5.2#H, Chloride Level 107, Carbon Dioxide Level 25, Anion Gap 7, Blood Urea Nitrogen 20H, Creatinine 1.2, Estimat Glomerular Filtration Rate > 60, Glucose Level 107H, Calcium Level 8.9#, Phosphorus Level 2.5, Magnesium Level 1.8, Total Bilirubin 0.2, Aspartate Amino Transf (AST/SGOT) 18, Alanine Aminotransferase (ALT/SGPT) 22, Alkaline Phosphatase 127H, Total Protein 7.5#, Albumin 2.5L, Globulin 5.0, Albumin/ Globulin Ratio 0.5L Height (Feet): 5 Height (Inches): 8.00 Weight (Pounds): 135 Objective PHYSICAL EXAMINATION: VITAL SIGNS: Have been reviewed GENERAL: No acute distress. nonverbal HEENT: Trach site is intact.on vent CHEST: Bibasilar rales CARDIOVASCULAR: Regular rate and rhythm. GASTROINTESTINAL: Positive bowel sounds. G-tube site is intact. EXTREMITIES: + edema. NEUROLOGICAL: The patient does not follow neurological exam. Reflexes equal on both sides. No organomegaly. Nikos Nath MD Aug 06, 2018 14:45
[2018-08-06 16:00] VITALS: BP 116/52
[2018-08-06] MEDS ORDERED: D5NS 1000ml IV ONE (16:43)
[2018-08-06] MEDS ORDERED: NS 275ml ONE (16:43)
[2018-08-06] MEDS ORDERED: Tubing Blood Filter IV ONE (16:43)
--- NOTE | 2018-08-06 17:15 | Progress Note ---
DATE: 08/06/2018 SUBJECTIVE: The patient is in bed, has waxing and waning consciousness, unable to answer the questions or provide any history. The patient has episodes of agitation, has cognitive impairment. He is unable to make any decisions. He has a public guardian. MENTAL STATUS EXAMINATION: The patient is lethargic with waxing and waning consciousness, confused, not able to provide any history. He has history of dementia, failure to thrive. Cognition is . 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 PLAN: 1. The patient will be started on p.r.n. Seroquel. 2. The patient lacks capacity to make decisions. 3. We will continue to follow. 4. Discussed with the staff. Toma Ramirez M.D. DR: Rod JOB#: [id number] CC:
[2018-08-06 20:00] VITALS: BP 112/69
[2018-08-06] MEDS: Dyna-Hex 2% Top Sol 2oz TOPIC SCH (20:19)
[2018-08-06] MEDS: Iron Sucrose 100 MG in NS 55 ML IV SCH (20:20)
[2018-08-07] VITALS: BP 128/68
[2018-08-07 04:00] VITALS: BP 112/62
[2018-08-07 05:07] LABS: BASOPHILS % (AUTO) 0.8 % (0.0-2.0); EOSINOPHILS % (AUTO) 6.7 % (0.0-3.0); HEMATOCRIT 30.5 % (42.0-52.0); HEMOGLOBIN 9.8 G/DL (14.2-18.0); LYMPHOCYTES % (AUTO) 20.3 % (20.0-45.0); MEAN CORPUSCULAR VOLUME 84 FL (80-99); MONOCYTES % (AUTO) 11.8 % (1.0-10.0); NEUTROPHILS % (AUTO) 60.4 % (45.0-75.0); PLATELET COUNT 237 K/UL (150-450); RED BLOOD COUNT 3.61 M/UL (4.70-6.10); RED CELL DISTRIBUTION WIDTH 14.9 % (11.6-14.8)
[2018-08-07 05:29] LABS: ALANINE AMINOTRANSFERASE 22 U/L (12-78); ALBUMIN 2.4 G/DL (3.4-5.0); ALBUMIN/GLOBULIN RATIO 0.5 (1.0-2.7); ALKALINE PHOSPHATASE 126 U/L (46-116); ANION GAP 9 mmol/L (5-15); ASPARTATE AMINO TRANSFERASE 15 U/L (15-37); BILIRUBIN,TOTAL 0.1 MG/DL (0.2-1.0); BLOOD UREA NITROGEN 22 mg/dL (7-18); CALCIUM 8.8 MG/DL (8.5-10.1); CARBON DIOXIDE 23 MMOL/L (21-32); CHLORIDE 104 MMOL/L (98-107); CREATININE 1.1 MG/DL (0.55-1.30); PHOSPHORUS 2.5 MG/DL (2.5-4.9); POTASSIUM 4.4 MMOL/L (3.5-5.1); SODIUM 136 MMOL/L (136-145)
[2018-08-07 08:00] VITALS: BP 124/63
[2018-08-07] MEDS: Bactrim Susp 20ml GT SCH ×2 (09:04→20:14)
--- NOTE | 2018-08-07 10:52 | GI Progress Note ---
Assessment/Plan Problems: (1) Iron deficiency ICD Codes: E61.1 - Iron deficiency SNOMED: 78941016 (2) Upper GI bleed ICD Codes: K92.2 - Upper gastrointestinal hemorrhage SNOMED: 18497135 (3) Severe erosive esophagitis (4) Malfunction of gastrostomy tube ICD Codes: K94.23 - Gastrostomy malfunction SNOMED: 036837981 (5) Protein-calorie malnutrition, severe ICD Codes: E43 - Unspecified severe protein-calorie malnutrition SNOMED: 326690533 (6) Esophagitis ICD Codes: K20.9 - Esophagitis SNOMED: 98302715 (7) Feeding by G-tube ICD Codes: Z93.1 - Gastrostomy status SNOMED: 423829983, 195451946 (8) Severe protein-calorie malnutrition ICD Codes: E43 - Unspecified severe protein-calorie malnutrition SNOMED: 998029546 Status: stable Status Narrative Discussed with Dr. Wilson. Assessment/Plan Assessment - Dark stools/ Anemia - severe GERD with stricture - OBS - Resp failure, trach - s/p GT - Contractures Recommendations - IVF - PPI - Follow H&H - Resume TF - fu labs - dc planning Subjective Subjective limited Objective Last 24 Hour Vital Signs Date Time Temp Pulse Resp B/P (MAP) Pulse Ox O2 Delivery O2 Flow Rate FiO2 08/07/18 09:29 69 19 40 08/07/18 08:00 99.1 77 17 124/63 (83) 100 08/07/18 08:00 Mechanical Ventilator 08/07/18 07:00 69 17 40 08/07/18 05:56 95 23 40 08/07/18 04:00 Mechanical Ventilator 08/07/18 04:00 66 08/07/18 04:00 98.1 63 16 112/62 (79) 99 08/07/18 04:00 40 08/07/18 03:30 64 23 40 08/07/18 01:09 68 20 40 08/07/18 00:00 98.2 68 16 128/68 (88) 100 08/07/18 00:00 66 08/07/18 00:00 Mechanical Ventilator 08/06/18 23:30 66 19 40 08/06/18 21:30 71 18 40 08/06/18 20:00 61 08/06/18 20:00 Mechanical Ventilator 08/06/18 20:00 97.5 63 21 112/69 (83) 99 08/06/18 20:00 40 08/06/18 19:30 68 17 40 08/06/18 16:34 70 20 40 08/06/18 16:00 73 08/06/18 16:00 98.1 75 18 116/52 (73) 97 08/06/18 16:00 Mechanical Ventilator 08/06/18 16:00 40 08/06/18 15:15 67 16 100 Mechanical Ventilator 40 08/06/18 15:11 77 16 40 08/06/18 15:11 40 08/06/18 15:10 69 16 100 Mechanical Ventilator 40 08/06/18 13:14 71 22 40 08/06/18 12:00 69 08/06/18 12:00 Mechanical Ventilator 08/06/18 12:00 97.9 69 16 110/49 (69) 98 08/06/18 12:00 40 08/06/18 11:20 70 20 40 Intake and Output 08/06/18 08/07/18 18:59 06:59 Intake Total 760 ml 920 ml Output Total 6000 ml 1250 ml Balance -5240 ml -330 ml Free Water 60 ml 90 ml IV Total 60 ml Tube Feeding 700 ml 770 ml Output Urine Total 6000 ml 1250 ml # Voids 10 Laboratory Tests Test 08/07/18 03:00 White Blood Count 8.0 K/UL (4.8-10.8) Red Blood Count 3.61 M/UL (4.70-6.10) L Hemoglobin 9.8 G/DL (14.2-18.0) L Hematocrit 30.5 % (42.0-52.0) L Mean Corpuscular Volume 84 FL (80-99) Mean Corpuscular Hemoglobin 27.3 PG (27.0-31.0) Mean Corpuscular Hemoglobin Concent 32.3 G/DL (32.0-36.0) Red Cell Distribution Width 14.9 % (11.6-14.8) H Platelet Count 237 K/UL (150-450) Mean Platelet Volume 7.4 FL (6.5-10.1) Neutrophils (%) (Auto) 60.4 % (45.0-75.0) Lymphocytes (%) (Auto) 20.3 % (20.0-45.0) Monocytes (%) (Auto) 11.8 % (1.0-10.0) H Eosinophils (%) (Auto) 6.7 % (0.0-3.0) H Basophils (%) (Auto) 0.8 % (0.0-2.0) Sodium Level 136 MMOL/L (136-145) Potassium Level 4.4 MMOL/L (3.5-5.1) Chloride Level 104 MMOL/L (98-107) Carbon Dioxide Level 23 MMOL/L (21-32) Anion Gap 9 mmol/L (5-15) Blood Urea Nitrogen 22 mg/dL (7-18) H Creatinine 1.1 MG/DL (0.55-1.30) Estimat Glomerular Filtration Rate > 60 mL/min (>60) Glucose Level 122 MG/DL (74-106) H Calcium Level 8.8 MG/DL (8.5-10.1) Phosphorus Level 2.5 MG/DL (2.5-4.9) Magnesium Level 1.8 MG/DL (1.8-2.4) Total Bilirubin 0.1 MG/DL (0.2-1.0) L Aspartate Amino Transf (AST/SGOT) 15 U/L (15-37) Alanine Aminotransferase (ALT/SGPT) 22 U/L (12-78) Alkaline Phosphatase 126 U/L (46-116) H Total Protein 7.4 G/DL (6.4-8.2) Albumin 2.4 G/DL (3.4-5.0) L Globulin 5.0 g/dL Albumin/Globulin Ratio 0.5 (1.0-2.7) L Height (Feet): 5 Height (Inches): 8.00 Weight (Pounds): 137 QuesadaEsperanzaAmy BULB PLANTER Aug 07, 2018 10:52
--- NOTE | 2018-08-07 11:17 | Pulmonology Progress Note ---
Assessment/Plan Problems: (1) Upper GI bleed (2) Anemia (3) Chronic respiratory failure (4) Sepsis (5) Alzheimer's dementia (6) Severe protein-calorie malnutrition (7) Feeding by G-tube Assessment/Plan Ca supplement continue abx tolerating feeding still lots of secretions check cultures wbc decreasing ID evaluation appreciated H2 blockers prbc prn, ( consent signed, pt doesn't have any DPOA or relatives) dvt prophylaxis Subjective ROS Limited/Unobtainable: Yes Allergies: Coded Allergies: NO KNOWN DRUG ALLERGIES (Verified Allergy, Unknown, 09/11/16) Objective Last 24 Hour Vital Signs Date Time Temp Pulse Resp B/P (MAP) Pulse Ox O2 Delivery O2 Flow Rate FiO2 08/07/18 10:50 66 16 40 08/07/18 10:00 40 08/07/18 09:29 69 19 40 08/07/18 08:00 99.1 77 17 124/63 (83) 100 08/07/18 08:00 Mechanical Ventilator 08/07/18 07:00 69 17 40 08/07/18 05:56 95 23 40 08/07/18 04:00 Mechanical Ventilator 08/07/18 04:00 66 08/07/18 04:00 98.1 63 16 112/62 (79) 99 08/07/18 04:00 40 08/07/18 03:30 64 23 40 08/07/18 01:09 68 20 40 08/07/18 00:00 98.2 68 16 128/68 (88) 100 08/07/18 00:00 66 08/07/18 00:00 Mechanical Ventilator 08/06/18 23:30 66 19 40 08/06/18 21:30 71 18 40 08/06/18 20:00 61 08/06/18 20:00 Mechanical Ventilator 08/06/18 20:00 97.5 63 21 112/69 (83) 99 08/06/18 20:00 40 08/06/18 19:30 68 17 40 08/06/18 16:34 70 20 40 08/06/18 16:00 73 08/06/18 16:00 98.1 75 18 116/52 (73) 97 08/06/18 16:00 Mechanical Ventilator 08/06/18 16:00 40 08/06/18 15:15 67 16 100 Mechanical Ventilator 40 08/06/18 15:11 77 16 40 11/27/18 15:11 40 08/06/18 15:10 69 16 100 Mechanical Ventilator 40 08/06/18 13:14 71 22 40 08/06/18 12:00 69 08/06/18 12:00 Mechanical Ventilator 08/06/18 12:00 97.9 69 16 110/49 (69) 98 08/06/18 12:00 40 08/06/18 11:20 70 20 40 Intake and Output 08/06/18 08/07/18 18:59 06:59 Intake Total 760 ml 920 ml Output Total 6000 ml 1250 ml Balance -5240 ml -330 ml Free Water 60 ml 90 ml IV Total 60 ml Tube Feeding 700 ml 770 ml Output Urine Total 6000 ml 1250 ml # Voids 10 General Appearance: cachetic HEENT: normocephalic, atraumatic Respiratory/Chest: chest wall non-tender, decreased breath sounds, crackles/ rales Cardiovascular: normal peripheral pulses, normal rate Abdomen: normal bowel sounds, soft, non tender, no organomegaly Genitourinary: normal external genitalia Extremities: no cyanosis Skin: no rash Laboratory Tests 08/07/18 03:00: White Blood Count 8.0, Red Blood Count 3.61L, Hemoglobin 9.8L, Hematocrit 30.5L , Mean Corpuscular Volume 84, Mean Corpuscular Hemoglobin 27.3, Mean Corpuscular Hemoglobin Concent 32.3, Red Cell Distribution Width 14.9H, Platelet Count 237, Mean Platelet Volume 7.4, Neutrophils (%) (Auto) 60.4, Lymphocytes (%) (Auto) 20.3, Monocytes (%) (Auto) 11.8H, Eosinophils (%) (Auto) 6.7H, Basophils (%) (Auto) 0.8, Sodium Level 136, Potassium Level 4.4, Chloride Level 104, Carbon Dioxide Level 23, Anion Gap 9, Blood Urea Nitrogen 22H, Creatinine 1.1, Estimat Glomerular Filtration Rate > 60, Glucose Level 122H, Calcium Level 8.8, Phosphorus Level 2.5, Magnesium Level 1.8, Total Bilirubin 0.1L, Aspartate Amino Transf (AST/SGOT) 15, Alanine Aminotransferase (ALT/SGPT) 22, Alkaline Phosphatase 126H, Total Protein 7.4, Albumin 2.4L, Globulin 5.0, Albumin/Globulin Ratio 0.5L Current Medications Medications (Trade) Dose Ordered Sig/Wanda Route PRN Reason Start Time Stop Time Status Last Admin Dose Admin Acetaminophen (Tylenol) 650 mg Q4H PRN GT Mild Pain/Temp > 100.5 08/01/18 02:00 08/31/18 01:59 08/04/18 17:48 Albuterol/ Ipratropium (Albuterol/ Ipratropium) 3 ml Q4H PRN HHN Shortness of Breath 08/03/18 09:30 08/08/18 09:29 08/06/18 15:08 Chlorhexidine Gluconate (Jasmin-Hex 2%) 1 applic DAILY@2000 TOPIC 08/02/18 20:00 09/01/18 19:59 08/06/18 20:19 Iron Sucrose 100 mg/Sodium Chloride 60 ml @ 240 mls/hr BEDTIME IV 08/03/18 21:00 08/07/18 21:14 08/06/18 20:20 Lansoprazole (Prevacid) 30 mg BID GT 08/03/18 18:00 09/02/18 17:59 08/07/18 09:03 Levothyroxine Sodium (Synthroid) 25 mcg DAILY IV 08/04/18 09:00 09/03/18 08:59 08/07/18 09:38 Ondansetron HCl (Zofran) 4 mg Q6H PRN IVP Nausea & Vomiting 08/03/18 20:29 09/02/18 20:28 08/04/18 06:30 Trimethoprim/ Sulfamethoxazole (Bactrim-DS) 20 ml EVERY 12 HOURS GT 08/03/18 21:00 08/10/18 09:59 08/07/18 09:04 Huma Keating MD Aug 07, 2018 11:17
[2018-08-07 12:00] VITALS: BP 101/61
--- NOTE | 2018-08-07 14:11 | General Progress Note ---
Assessment/Plan Problem List: (1) GI bleed ICD Codes: K92.2 - Gastrointestinal hemorrhage, unspecified SNOMED: 37968356 (2) Respiratory failure, [id number] ICD Codes: J96.20 - Respiratory failure, [id number] SNOMED: 74930819 (3) Anemia ICD Codes: D64.9 - Anemia, unspecified SNOMED: 999741670 (4) Hypothyroidism ICD Codes: E03.9 - Hypothyroidism, unspecified SNOMED: 38540595 Status: unchanged Assessment/Plan vent abx prn cbc bmp am dc planning Subjective Constitutional: Reports: weakness Allergies: Coded Allergies: NO KNOWN DRUG ALLERGIES (Verified Allergy, Unknown, 09/11/16) All Systems: reviewed and negative except above Subjective trach vent altered calm Objective Last 24 Hour Vital Signs Date Time Temp Pulse Resp B/P (MAP) Pulse Ox O2 Delivery O2 Flow Rate FiO2 08/07/18 12:53 68 18 40 08/07/18 12:00 Mechanical Ventilator 08/07/18 12:00 98.7 70 20 101/61 (74) 100 08/07/18 12:00 40 08/07/18 10:50 66 16 40 08/07/18 10:00 40 08/07/18 09:29 69 19 40 08/07/18 08:00 99.1 77 17 124/63 (83) 100 08/07/18 08:00 Mechanical Ventilator 08/07/18 08:00 76 08/07/18 07:00 69 17 40 08/07/18 05:56 95 23 40 08/07/18 04:00 Mechanical Ventilator 08/07/18 04:00 66 08/07/18 04:00 98.1 63 16 112/62 (79) 99 08/07/18 04:00 40 08/07/18 03:30 64 23 40 08/07/18 01:09 68 20 40 08/07/18 00:00 98.2 68 16 128/68 (88) 100 08/07/18 00:00 66 08/07/18 00:00 Mechanical Ventilator 08/06/18 23:30 66 19 40 08/06/18 21:30 71 18 40 08/06/18 20:00 61 08/06/18 20:00 Mechanical Ventilator 08/06/18 20:00 97.5 63 21 112/69 (83) 99 08/06/18 20:00 40 08/06/18 19:30 68 17 40 08/06/18 16:34 70 20 40 08/06/18 16:00 73 08/06/18 16:00 98.1 75 18 116/52 (73) 97 08/06/18 16:00 Mechanical Ventilator 08/06/18 16:00 40 08/06/18 15:15 67 16 100 Mechanical Ventilator 40 08/06/18 15:11 77 16 40 08/06/18 15:11 40 08/06/18 15:10 69 16 100 Mechanical Ventilator 40 Intake and Output 08/06/18 08/07/18 19:00 07:00 Intake Total 830 ml 920 ml Output Total 6000 ml 1250 ml Balance -5170 ml -330 ml Free Water 60 ml 90 ml IV Total 60 ml Tube Feeding 770 ml 770 ml Output Urine Total 6000 ml 1250 ml # Voids 10 Laboratory Tests 08/07/18 03:00: White Blood Count 8.0, Red Blood Count 3.61L, Hemoglobin 9.8L, Hematocrit 30.5L , Mean Corpuscular Volume 84, Mean Corpuscular Hemoglobin 27.3, Mean Corpuscular Hemoglobin Concent 32.3, Red Cell Distribution Width 14.9H, Platelet Count 237, Mean Platelet Volume 7.4, Neutrophils (%) (Auto) 60.4, Lymphocytes (%) (Auto) 20.3, Monocytes (%) (Auto) 11.8H, Eosinophils (%) (Auto) 6.7H, Basophils (%) (Auto) 0.8, Sodium Level 136, Potassium Level 4.4, Chloride Level 104, Carbon Dioxide Level 23, Anion Gap 9, Blood Urea Nitrogen 22H, Creatinine 1.1, Estimat Glomerular Filtration Rate > 60, Glucose Level 122H, Calcium Level 8.8, Phosphorus Level 2.5, Magnesium Level 1.8, Total Bilirubin 0.1L, Aspartate Amino Transf (AST/SGOT) 15, Alanine Aminotransferase (ALT/SGPT) 22, Alkaline Phosphatase 126H, Total Protein 7.4, Albumin 2.4L, Globulin 5.0, Albumin/Globulin Ratio 0.5L Height (Feet): 5 Height (Inches): 8.00 Weight (Pounds): 137 General Appearance: lethargic EENT: normal ENT inspection Neck: normal alignment Cardiovascular: normal peripheral pulses, normal rate, regular rhythm Respiratory/Chest: chest wall non-tender, lungs clear, normal breath sounds Abdomen: normal bowel sounds, non tender, soft Extremities: normal inspection Edema: no edema noted Arm (L), no edema noted Arm (R), no edema noted Leg (L), no edema noted Leg (R), no edema noted Pedal (L), no edema noted Pedal (R), no edema noted Generalized Neurologic: motor weakness Skin: normal pigmentation, warm/dry Gato Viveros DO Aug 07, 2018 14:11
--- NOTE | 2018-08-07 14:15 | General Progress Note ---
Assessment/Plan Problem List: (1) Alzheimer's dementia ICD Codes: G30.9 - Alzheimer's disease, unspecified SNOMED: 61230174 (2) Psychosis ICD Codes: F29 - Psychosis SNOMED: 50066049 Status: unchanged Assessment/Plan seroquel prn lacks [place] he has a dpoa Subjective Allergies: Coded Allergies: NO KNOWN DRUG ALLERGIES (Verified Allergy, Unknown, 09/11/16) Subjective the pt has waxing and waning of consciousness Objective Last 24 Hour Vital Signs Date Time Temp Pulse Resp B/P (MAP) Pulse Ox O2 Delivery O2 Flow Rate FiO2 08/07/18 12:53 68 18 40 08/07/18 12:00 Mechanical Ventilator 08/07/18 12:00 98.7 70 20 101/61 (74) 100 08/07/18 12:00 40 08/07/18 10:50 66 16 40 08/07/18 10:00 40 08/07/18 09:29 69 19 40 08/07/18 08:00 99.1 77 17 124/63 (83) 100 08/07/18 08:00 Mechanical Ventilator 08/07/18 08:00 76 08/07/18 07:00 69 17 40 08/07/18 05:56 95 23 40 08/07/18 04:00 Mechanical Ventilator 08/07/18 04:00 66 08/07/18 04:00 98.1 63 16 112/62 (79) 99 08/07/18 04:00 40 08/07/18 03:30 64 23 40 08/07/18 01:09 68 20 40 08/07/18 00:00 98.2 68 16 128/68 (88) 100 08/07/18 00:00 66 08/07/18 00:00 Mechanical Ventilator 08/06/18 23:30 66 19 40 08/06/18 21:30 71 18 40 08/06/18 20:00 61 08/06/18 20:00 Mechanical Ventilator 08/06/18 20:00 97.5 63 21 112/69 (83) 99 08/06/18 20:00 40 08/06/18 19:30 68 17 40 08/06/18 16:34 70 20 40 08/06/18 16:00 73 08/06/18 16:00 98.1 75 18 116/52 (73) 97 08/06/18 16:00 Mechanical Ventilator 08/06/18 16:00 40 08/06/18 15:15 67 16 100 Mechanical Ventilator 40 08/06/18 15:11 77 16 40 08/06/18 15:11 40 08/06/18 15:10 69 16 100 Mechanical Ventilator 40 Intake and Output 08/06/18 08/07/18 19:00 07:00 Intake Total 830 ml 920 ml Output Total 6000 ml 1250 ml Balance -5170 ml -330 ml Free Water 60 ml 90 ml IV Total 60 ml Tube Feeding 770 ml 770 ml Output Urine Total 6000 ml 1250 ml # Voids 10 Laboratory Tests 08/07/18 03:00: White Blood Count 8.0, Red Blood Count 3.61L, Hemoglobin 9.8L, Hematocrit 30.5L , Mean Corpuscular Volume 84, Mean Corpuscular Hemoglobin 27.3, Mean Corpuscular Hemoglobin Concent 32.3, Red Cell Distribution Width 14.9H, Platelet Count 237, Mean Platelet Volume 7.4, Neutrophils (%) (Auto) 60.4, Lymphocytes (%) (Auto) 20.3, Monocytes (%) (Auto) 11.8H, Eosinophils (%) (Auto) 6.7H, Basophils (%) (Auto) 0.8, Sodium Level 136, Potassium Level 4.4, Chloride Level 104, Carbon Dioxide Level 23, Anion Gap 9, Blood Urea Nitrogen 22H, Creatinine 1.1, Estimat Glomerular Filtration Rate > 60, Glucose Level 122H, Calcium Level 8.8, Phosphorus Level 2.5, Magnesium Level 1.8, Total Bilirubin 0.1L, Aspartate Amino Transf (AST/SGOT) 15, Alanine Aminotransferase (ALT/SGPT) 22, Alkaline Phosphatase 126H, Total Protein 7.4, Albumin 2.4L, Globulin 5.0, Albumin/Globulin Ratio 0.5L Height (Feet): 5 Height (Inches): 8.00 Weight (Pounds): 137 General Appearance: lethargic, confused, agitated Toma Ramirez MD Aug 07, 2018 14:15
--- NOTE | 2018-08-07 15:16 | General Progress Note ---
Assessment/Plan Status: stable, unchanged Assessment/Plan # Anemia of iron deficiency due to underlying chronic medical issues, multifactorial. --> Anemia w/u has been reviewed. Ferritin at 74 --> No evidence of hemolysis is noted, peripheral smear has been reviewed. --> Hgb goal >7. Transfuse prn. --> IV iron x5 days. End 08/07 # Leukocytosis. Likely related to underlying infection versus reactive process. --> WBC has improved/resolved --> Peripheral has been reviewed, no blasts noted --> Medications have been reviewed --> Imaging has been reviewed. CXR shows Suboptimal positioning. No interval consolidation, overt edema or other acute cardiopulmonary findings. --> Urine culture shows gram negative bacteria --> Completed abx, empiric treatment # Upper GI vomiting bleed. GI is following, appreciate recs. --> protonix as needed # Nonverbal status # Dyshagia s/p peg # Resp failure s/p trach/vent GREATLY APPRECIATE CONSULTATION. Subjective Date patient seen: Aug 07, 2018 ROS Limited/Unobtainable: Yes Hematologic/Lymphatic: Reports: anemia Allergies: Coded Allergies: NO KNOWN DRUG ALLERGIES (Verified Allergy, Unknown, 09/11/16) Subjective No acute events. H/H stable. VS stable. Nonverbal. Objective Last 24 Hour Vital Signs Date Time Temp Pulse Resp B/P (MAP) Pulse Ox O2 Delivery O2 Flow Rate FiO2 08/07/18 12:53 68 18 40 08/07/18 12:00 Mechanical Ventilator 08/07/18 12:00 98.7 70 20 101/61 (74) 100 08/07/18 12:00 69 08/07/18 12:00 40 08/07/18 10:50 66 16 40 08/07/18 10:00 40 08/07/18 09:29 69 19 40 08/07/18 08:00 99.1 77 17 124/63 (83) 100 08/07/18 08:00 Mechanical Ventilator 08/07/18 08:00 76 08/07/18 07:00 69 17 40 08/07/18 05:56 95 23 40 08/07/18 04:00 Mechanical Ventilator 08/07/18 04:00 66 08/07/18 04:00 98.1 63 16 112/62 (79) 99 08/07/18 04:00 40 08/07/18 03:30 64 23 40 08/07/18 01:09 68 20 40 08/07/18 00:00 98.2 68 16 128/68 (88) 100 08/07/18 00:00 66 08/07/18 00:00 Mechanical Ventilator 08/06/18 23:30 66 19 40 08/06/18 21:30 71 18 40 08/06/18 20:00 61 08/06/18 20:00 Mechanical Ventilator 08/06/18 20:00 97.5 63 21 112/69 (83) 99 08/06/18 20:00 40 08/06/18 19:30 68 17 40 08/06/18 16:34 70 20 40 08/06/18 16:00 73 08/06/18 16:00 98.1 75 18 116/52 (73) 97 08/06/18 16:00 Mechanical Ventilator 08/06/18 16:00 40 08/06/18 15:15 67 16 100 Mechanical Ventilator 40 Intake and Output 08/06/18 08/07/18 19:00 07:00 Intake Total 830 ml 920 ml Output Total 6000 ml 1250 ml Balance -5170 ml -330 ml Free Water 60 ml 90 ml IV Total 60 ml Tube Feeding 770 ml 770 ml Output Urine Total 6000 ml 1250 ml # Voids 10 Laboratory Tests 08/07/18 03:00: White Blood Count 8.0, Red Blood Count 3.61L, Hemoglobin 9.8L, Hematocrit 30.5L , Mean Corpuscular Volume 84, Mean Corpuscular Hemoglobin 27.3, Mean Corpuscular Hemoglobin Concent 32.3, Red Cell Distribution Width 14.9H, Platelet Count 237, Mean Platelet Volume 7.4, Neutrophils (%) (Auto) 60.4, Lymphocytes (%) (Auto) 20.3, Monocytes (%) (Auto) 11.8H, Eosinophils (%) (Auto) 6.7H, Basophils (%) (Auto) 0.8, Sodium Level 136, Potassium Level 4.4, Chloride Level 104, Carbon Dioxide Level 23, Anion Gap 9, Blood Urea Nitrogen 22H, Creatinine 1.1, Estimat Glomerular Filtration Rate > 60, Glucose Level 122H, Calcium Level 8.8, Phosphorus Level 2.5, Magnesium Level 1.8, Total Bilirubin 0.1L, Aspartate Amino Transf (AST/SGOT) 15, Alanine Aminotransferase (ALT/SGPT) 22, Alkaline Phosphatase 126H, Total Protein 7.4, Albumin 2.4L, Globulin 5.0, Albumin/Globulin Ratio 0.5L Height (Feet): 5 Height (Inches): 8.00 Weight (Pounds): 137 Objective PHYSICAL EXAMINATION: VITAL SIGNS: Have been reviewed GENERAL: No acute distress. nonverbal HEENT: Trach site is intact.on vent CHEST: Bibasilar rales CARDIOVASCULAR: Regular rate and rhythm. GASTROINTESTINAL: Positive bowel sounds. G-tube site is intact. EXTREMITIES: + edema. NEUROLOGICAL: The patient does not follow neurological exam. Reflexes equal on both sides. No organomegaly. Nikos Nath MD Aug 07, 2018 15:16
[2018-08-07 16:00] VITALS: BP 121/60
--- NOTE | 2018-08-07 18:21 | Infectious Diseases Prog Note ---
Assessment/Plan Assessment/Plan Assessment 67 yo male who is vent dependent and was brought to the ED on 07/31/18 with GIB and increased sputum. UTI UA positive 08/01/18 UCxESBL Proteus Sen to erta, zosyn and bactrim; 08/02/18 UCx ESBL P.mirabilis Increase oral secretions -CXR 08/05: Increased bilateral interstitial edema over one day.Suspect developing left pleural effusion No evidence for PNA on CXR -sp cx ESBL P.mirabils (S Bactrim), S. maltophilia (S Bactrim) Leukocytosis up to 13 Now resolved Afebrile Hx Constipation Chronic respiratory failure, Hypothyroidism GERD Hypertension Hx C. diff Dysphagia, Esophagitis GI bleed Anemia. Trached vent depeendent PEG Plan - Continue Bactrim PO/NG DS BID #5/7 (End date 08/09/18) -08/03 SP Vancomycin and Cefepime #3 -08/01 SP Ceftriaxone x1 - Monitor CBC and temps -Trach/oral care -Aspiration precautions Thank you for this consult. We will continue to follow the patient during this hospitalization. Subjective Allergies: Coded Allergies: NO KNOWN DRUG ALLERGIES (Verified Allergy, Unknown, 09/11/16) Subjective afebrile no leukocytosis Fio2 40% Objective Vital Signs Last 24 Hour Vital Signs Date Time Temp Pulse Resp B/P (MAP) Pulse Ox O2 Delivery O2 Flow Rate FiO2 08/07/18 17:15 65 16 40 08/07/18 16:00 40 08/07/18 16:00 97.9 68 16 121/60 (80) 100 08/07/18 16:00 66 08/07/18 16:00 Mechanical Ventilator 08/07/18 15:30 70 16 40 08/07/18 12:53 68 18 40 08/07/18 12:00 Mechanical Ventilator 08/07/18 12:00 98.7 70 20 101/61 (74) 100 08/07/18 12:00 69 08/07/18 12:00 40 08/07/18 10:50 66 16 40 08/07/18 10:00 40 08/07/18 09:29 69 19 40 08/07/18 08:00 99.1 77 17 124/63 (83) 100 08/07/18 08:00 Mechanical Ventilator 08/07/18 08:00 76 08/07/18 07:00 69 17 40 08/07/18 05:56 95 23 40 08/07/18 04:00 Mechanical Ventilator 08/07/18 04:00 66 08/07/18 04:00 98.1 63 16 112/62 (79) 99 08/07/18 04:00 40 08/07/18 03:30 64 23 40 08/07/18 01:09 68 20 40 08/07/18 00:00 98.2 68 16 128/68 (88) 100 08/07/18 00:00 66 08/07/18 00:00 Mechanical Ventilator 08/06/18 23:30 66 19 40 08/06/18 21:30 71 18 40 08/06/18 20:00 61 08/06/18 20:00 Mechanical Ventilator 08/06/18 20:00 97.5 63 21 112/69 (83) 99 08/06/18 20:00 40 08/06/18 19:30 68 17 40 Height (Feet): 5 Height (Inches): 8.00 Weight (Pounds): 137 Objective Gen: NAD. Trached HEENT: NCAT, MMM, eyes open not following No Oral lesion, no scleral icterus NECK: full range of motion, supple, no meningismus, No LAD, No JVD LUNGS: CTAB, No W/C, No Accessory muscle use CARDS: RRR, S1, S2, No M/R/G, ABD: Soft, NT, ND, No R/G, + BS, No HSM, No Masses, PEG (No E/P) : Deferred Ext: C/C/E, Pulses 2+ B/L (DP, Rad): NEURO: A/O x 0, Strength and Sensation Grossly intact PSYCH: mood/affect normal SKIN: Warm not rashes Laboratory Tests Test 08/07/18 03:00 White Blood Count 8.0 K/UL (4.8-10.8) Red Blood Count 3.61 M/UL (4.70-6.10) L Hemoglobin 9.8 G/DL (14.2-18.0) L Hematocrit 30.5 % (42.0-52.0) L Mean Corpuscular Volume 84 FL (80-99) Mean Corpuscular Hemoglobin 27.3 PG (27.0-31.0) Mean Corpuscular Hemoglobin Concent 32.3 G/DL (32.0-36.0) Red Cell Distribution Width 14.9 % (11.6-14.8) H Platelet Count 237 K/UL (150-450) Mean Platelet Volume 7.4 FL (6.5-10.1) Neutrophils (%) (Auto) 60.4 % (45.0-75.0) Lymphocytes (%) (Auto) 20.3 % (20.0-45.0) Monocytes (%) (Auto) 11.8 % (1.0-10.0) H Eosinophils (%) (Auto) 6.7 % (0.0-3.0) H Basophils (%) (Auto) 0.8 % (0.0-2.0) Sodium Level 136 MMOL/L (136-145) Potassium Level 4.4 MMOL/L (3.5-5.1) Chloride Level 104 MMOL/L (98-107) Carbon Dioxide Level 23 MMOL/L (21-32) Anion Gap 9 mmol/L (5-15) Blood Urea Nitrogen 22 mg/dL (7-18) H Creatinine 1.1 MG/DL (0.55-1.30) Estimat Glomerular Filtration Rate > 60 mL/min (>60) Glucose Level 122 MG/DL (74-106) H Calcium Level 8.8 MG/DL (8.5-10.1) Phosphorus Level 2.5 MG/DL (2.5-4.9) Magnesium Level 1.8 MG/DL (1.8-2.4) Total Bilirubin 0.1 MG/DL (0.2-1.0) L Aspartate Amino Transf (AST/SGOT) 15 U/L (15-37) Alanine Aminotransferase (ALT/SGPT) 22 U/L (12-78) Alkaline Phosphatase 126 U/L (46-116) H Total Protein 7.4 G/DL (6.4-8.2) Albumin 2.4 G/DL (3.4-5.0) L Globulin 5.0 g/dL Albumin/Globulin Ratio 0.5 (1.0-2.7) L Current Medications Medications (Trade) Dose Ordered Sig/Wanda Route PRN Reason Start Time Stop Time Status Last Admin Dose Admin Acetaminophen (Tylenol) 650 mg Q4H PRN GT Mild Pain/Temp > 100.5 08/01/18 02:00 08/31/18 01:59 08/04/18 17:48 Albuterol/ Ipratropium (Albuterol/ Ipratropium) 3 ml Q4H PRN HHN Shortness of Breath 08/03/18 09:30 08/08/18 09:29 08/06/18 15:08 Chlorhexidine Gluconate (Jasmin-Hex 2%) 1 applic DAILY@2000 TOPIC 08/02/18 20:00 09/01/18 19:59 08/06/18 20:19 Iron Sucrose 100 mg/Sodium Chloride 60 ml @ 240 mls/hr BEDTIME IV 08/03/18 21:00 08/07/18 21:14 08/06/18 20:20 Lansoprazole (Prevacid) 30 mg BID GT 08/03/18 18:00 09/02/18 17:59 08/07/18 17:08 Levothyroxine Sodium (Synthroid) 25 mcg DAILY IV 08/04/18 09:00 09/03/18 08:59 08/07/18 09:38 Ondansetron HCl (Zofran) 4 mg Q6H PRN IVP Nausea & Vomiting 08/03/18 20:29 09/02/18 20:28 08/04/18 06:30 Trimethoprim/ Sulfamethoxazole (Bactrim-DS) 20 ml EVERY 12 HOURS GT 08/03/18 21:00 08/10/18 09:59 08/07/18 09:04 Lisy Lai M.D. Aug 07, 2018 18:21
[2018-08-07 20:00] VITALS: BP 124/63
[2018-08-07] MEDS: Dyna-Hex 2% Top Sol 2oz TOPIC SCH (20:14)
[2018-08-07] MEDS: Iron Sucrose 100 MG in NS 55 ML IV SCH (20:49)
[2018-08-08] VITALS: BP 108/60
[2018-08-08 04:00] VITALS: BP 122/70
[2018-08-08 05:00] LABS: BASOPHILS % (AUTO) 0.6 % (0.0-2.0); EOSINOPHILS % (AUTO) 6.2 % (0.0-3.0); HEMATOCRIT 32.4 % (42.0-52.0); HEMOGLOBIN 10.4 G/DL (14.2-18.0); LYMPHOCYTES % (AUTO) 18.5 % (20.0-45.0); MEAN CORPUSCULAR VOLUME 85 FL (80-99); MONOCYTES % (AUTO) 10.1 % (1.0-10.0); NEUTROPHILS % (AUTO) 64.5 % (45.0-75.0); PLATELET COUNT 241 K/UL (150-450); RED BLOOD COUNT 3.83 M/UL (4.70-6.10); RED CELL DISTRIBUTION WIDTH 15.5 % (11.6-14.8); WHITE BLOOD COUNT 8.7 K/UL (4.8-10.8)
[2018-08-08 05:20] LABS: ANION GAP 11 mmol/L (5-15); BLOOD UREA NITROGEN 27 mg/dL (7-18); CALCIUM 8.8 MG/DL (8.5-10.1); CARBON DIOXIDE 21 MMOL/L (21-32); CHLORIDE 104 MMOL/L (98-107); CREATININE 1.2 MG/DL (0.55-1.30); POTASSIUM 4.8 MMOL/L (3.5-5.1); SODIUM 136 MMOL/L (136-145)
--- NOTE | 2018-08-08 07:19 | General Progress Note ---
Assessment/Plan Assessment/Plan # Anemia of iron deficiency due to underlying chronic medical issues, multifactorial. --> Anemia w/u has been reviewed. Ferritin at 74 --> No evidence of hemolysis is noted, peripheral smear has been reviewed. --> Hgb goal >7. Transfuse prn. --> Completed IV iron x5 days # Leukocytosis. Likely related to underlying infection versus reactive process. --> WBC has improved/resolved --> Peripheral has been reviewed, no blasts noted --> Medications have been reviewed --> Imaging has been reviewed. CXR shows Suboptimal positioning. No interval consolidation, overt edema or other acute cardiopulmonary findings. --> Urine culture shows gram negative bacteria --> Completed abx, empiric treatment # Upper GI vomiting bleed. GI is following, appreciate recs. --> protonix as needed # Nonverbal status # Dyshagia s/p peg # Resp failure s/p trach/vent GREATLY APPRECIATE CONSULTATION. Subjective Date patient seen: Aug 08, 2018 ROS Limited/Unobtainable: Yes Hematologic/Lymphatic: Reports: anemia Allergies: Coded Allergies: NO KNOWN DRUG ALLERGIES (Verified Allergy, Unknown, 09/11/16) Subjective No acute events. H/H stable. VS stable. Nonverbal. Objective Last 24 Hour Vital Signs Date Time Temp Pulse Resp B/P (MAP) Pulse Ox O2 Delivery O2 Flow Rate FiO2 08/08/18 05:05 65 16 40 08/08/18 04:00 40 08/08/18 04:00 Mechanical Ventilator 08/08/18 04:00 74 08/08/18 04:00 97.9 68 18 122/70 (87) 100 08/08/18 02:56 70 19 40 08/08/18 00:52 66 21 40 08/08/18 00:00 86 08/08/18 00:00 Mechanical Ventilator 08/08/18 00:00 98.4 66 19 108/60 (76) 100 08/07/18 23:10 70 20 40 08/07/18 21:27 72 28 40 08/07/18 20:00 40 08/07/18 20:00 72 08/07/18 20:00 99.1 77 17 124/63 (83) 100 08/07/18 20:00 Mechanical Ventilator 08/07/18 19:25 67 17 40 08/07/18 17:15 65 16 40 08/07/18 16:00 40 08/07/18 16:00 97.9 68 16 121/60 (80) 100 08/07/18 16:00 66 08/07/18 16:00 Mechanical Ventilator 08/07/18 15:30 70 16 40 08/07/18 12:53 68 18 40 08/07/18 12:00 Mechanical Ventilator 08/07/18 12:00 98.7 70 20 101/61 (74) 100 08/07/18 12:00 69 08/07/18 12:00 40 08/07/18 10:50 66 16 40 08/07/18 10:00 40 08/07/18 09:29 69 19 40 08/07/18 08:00 99.1 77 17 124/63 (83) 100 08/07/18 08:00 Mechanical Ventilator 08/07/18 08:00 76 Intake and Output 08/07/18 08/08/18 18:59 06:59 Intake Total 920 ml 900 ml Output Total 350 ml Balance 570 ml 900 ml Free Water 80 ml IV Total 60 ml Tube Feeding 840 ml 840 ml Output Urine Total 350 ml Laboratory Tests 08/08/18 02:55: White Blood Count 8.7, Red Blood Count 3.83L, Hemoglobin 10.4L, Hematocrit 32.4L , Mean Corpuscular Volume 85, Mean Corpuscular Hemoglobin 27.2, Mean Corpuscular Hemoglobin Concent 32.2, Red Cell Distribution Width 15.5H, Platelet Count 241, Mean Platelet Volume 6.9, Neutrophils (%) (Auto) 64.5, Lymphocytes (%) (Auto) 18.5L, Monocytes (%) (Auto) 10.1H, Eosinophils (%) (Auto ) 6.2H, Basophils (%) (Auto) 0.6, Sodium Level 136, Potassium Level 4.8, Chloride Level 104, Carbon Dioxide Level 21, Anion Gap 11, Blood Urea Nitrogen 27H, Creatinine 1.2, Estimat Glomerular Filtration Rate > 60, Glucose Level 108H , Calcium Level 8.8 Height (Feet): 5 Height (Inches): 8.00 Weight (Pounds): 137 Objective PHYSICAL EXAMINATION: VITAL SIGNS: Have been reviewed GENERAL: No acute distress. nonverbal HEENT: Trach site is intact.on vent CHEST: Bibasilar rales CARDIOVASCULAR: Regular rate and rhythm. GASTROINTESTINAL: Positive bowel sounds. G-tube site is intact. EXTREMITIES: + edema. NEUROLOGICAL: The patient does not follow neurological exam. Reflexes equal on both sides. No organomegaly. Nikos Nath MD Aug 08, 2018 07:19
[2018-08-08 08:00] VITALS: BP_SYST 113; BP_SYST 139; BP_DIAS 60; BP_DIAS 69
[2018-08-08] MEDS: Bactrim Susp 20ml GT SCH ×2 (09:51→20:00)
--- NOTE | 2018-08-08 11:06 | Pulmonology Progress Note ---
Assessment/Plan Problems: (1) Upper GI bleed (2) Anemia (3) Chronic respiratory failure (4) Sepsis (5) Alzheimer's dementia (6) Severe protein-calorie malnutrition (7) Feeding by G-tube Assessment/Plan Ca supplement continue abx tolerating feeding still lots of secretions check cultures wbc decreasing ID evaluation appreciated H2 blockers symptomatic treatment dvt prophylaxis Subjective ROS Limited/Unobtainable: No Constitutional: Reports: no symptoms HEENT: Repors: no symptoms Respiratory: Reports: no symptoms Allergies: Coded Allergies: NO KNOWN DRUG ALLERGIES (Verified Allergy, Unknown, 09/11/16) Objective Last 24 Hour Vital Signs Date Time Temp Pulse Resp B/P (MAP) Pulse Ox O2 Delivery O2 Flow Rate FiO2 08/08/18 10:31 70 22 40 08/08/18 08:40 71 18 40 08/08/18 08:00 98.3 69 17 113/60 (77) 100 08/08/18 08:00 40 08/08/18 06:40 67 20 40 08/08/18 05:05 65 16 40 08/08/18 04:00 40 08/08/18 04:00 Mechanical Ventilator 08/08/18 04:00 74 08/08/18 04:00 97.9 68 18 122/70 (87) 100 08/08/18 02:56 70 19 40 08/08/18 00:52 66 21 40 08/08/18 00:00 86 08/08/18 00:00 Mechanical Ventilator 08/08/18 00:00 98.4 66 19 108/60 (76) 100 08/07/18 23:10 70 20 40 08/07/18 21:27 72 28 40 08/07/18 20:00 40 08/07/18 20:00 72 08/07/18 20:00 99.1 77 17 124/63 (83) 100 08/07/18 20:00 Mechanical Ventilator 08/07/18 19:25 67 17 40 08/07/18 17:15 65 16 40 08/07/18 16:00 40 08/07/18 16:00 97.9 68 16 121/60 (80) 100 08/07/18 16:00 66 08/07/18 16:00 Mechanical Ventilator 08/07/18 15:30 70 16 40 08/07/18 12:53 68 18 40 08/07/18 12:00 Mechanical Ventilator 08/07/18 12:00 98.7 70 20 101/61 (74) 100 08/07/18 12:00 69 08/07/18 12:00 40 Intake and Output 08/07/18 08/08/18 18:59 06:59 Intake Total 920 ml 900 ml Output Total 350 ml Balance 570 ml 900 ml Free Water 80 ml IV Total 60 ml Tube Feeding 840 ml 840 ml Output Urine Total 350 ml General Appearance: WD/WN HEENT: normocephalic Respiratory/Chest: chest wall non-tender, crackles/rales Cardiovascular: normal peripheral pulses, normal rate Abdomen: normal bowel sounds, soft, non tender Genitourinary: normal external genitalia Extremities: no cyanosis Skin: no rash Laboratory Tests 08/08/18 02:55: White Blood Count 8.7, Red Blood Count 3.83L, Hemoglobin 10.4L, Hematocrit 32.4L , Mean Corpuscular Volume 85, Mean Corpuscular Hemoglobin 27.2, Mean Corpuscular Hemoglobin Concent 32.2, Red Cell Distribution Width 15.5H, Platelet Count 241, Mean Platelet Volume 6.9, Neutrophils (%) (Auto) 64.5, Lymphocytes (%) (Auto) 18.5L, Monocytes (%) (Auto) 10.1H, Eosinophils (%) (Auto ) 6.2H, Basophils (%) (Auto) 0.6, Sodium Level 136, Potassium Level 4.8, Chloride Level 104, Carbon Dioxide Level 21, Anion Gap 11, Blood Urea Nitrogen 27H, Creatinine 1.2, Estimat Glomerular Filtration Rate > 60, Glucose Level 108H , Calcium Level 8.8 Current Medications Medications (Trade) Dose Ordered Sig/Wanda Route PRN Reason Start Time Stop Time Status Last Admin Dose Admin Acetaminophen (Tylenol) 650 mg Q4H PRN GT Mild Pain/Temp > 100.5 08/01/18 02:00 08/31/18 01:59 08/04/18 17:48 Chlorhexidine Gluconate (Jasmin-Hex 2%) 1 applic DAILY@1999 TOPIC 08/02/18 20:00 09/01/18 19:59 08/07/18 20:14 Lansoprazole (Prevacid) 30 mg BID GT 08/03/18 18:00 09/02/18 17:59 08/08/18 09:51 Levothyroxine Sodium (Synthroid) 25 mcg DAILY IV 08/04/18 09:00 09/03/18 08:59 08/08/18 09:51 Ondansetron HCl (Zofran) 4 mg Q6H PRN IVP Nausea & Vomiting 08/03/18 20:29 09/02/18 20:28 08/04/18 06:30 Trimethoprim/ Sulfamethoxazole (Bactrim-DS) 20 ml EVERY 12 HOURS GT 08/03/18 21:00 08/10/18 09:59 08/08/18 09:51 Huma Keating MD Aug 08, 2018 11:06
--- NOTE | 2018-08-08 11:27 | GI Progress Note ---
Assessment/Plan Problems: (1) Iron deficiency ICD Codes: E61.1 - Iron deficiency SNOMED: 24826427 (2) Upper GI bleed ICD Codes: K92.2 - Upper gastrointestinal hemorrhage SNOMED: 04767176 (3) Severe erosive esophagitis (4) Malfunction of gastrostomy tube ICD Codes: K94.23 - Gastrostomy malfunction SNOMED: 926037242 (5) Protein-calorie malnutrition, severe ICD Codes: E43 - Unspecified severe protein-calorie malnutrition SNOMED: 496148102 (6) Esophagitis ICD Codes: K20.9 - Esophagitis SNOMED: 79653394 (7) Feeding by G-tube ICD Codes: Z93.1 - Gastrostomy status SNOMED: 260387086, 761329295 (8) Severe protein-calorie malnutrition ICD Codes: E43 - Unspecified severe protein-calorie malnutrition SNOMED: 348807699 Status: stable Status Narrative Discussed with Dr. Wilson. Assessment/Plan Assessment - Dark stools/ Anemia - severe GERD with stricture - OBS - Resp failure, trach - s/p GT - Contractures Recommendations - IVF - PPI - Follow H&H - Resume TF - fu labs - dc planning Subjective Subjective limited Objective Last 24 Hour Vital Signs Date Time Temp Pulse Resp B/P (MAP) Pulse Ox O2 Delivery O2 Flow Rate FiO2 08/08/18 10:31 70 22 40 08/08/18 08:40 71 18 40 08/08/18 08:00 98.3 69 17 113/60 (77) 100 08/08/18 08:00 40 08/08/18 06:40 67 20 40 08/08/18 05:05 65 16 40 08/08/18 04:00 40 08/08/18 04:00 Mechanical Ventilator 08/08/18 04:00 74 08/08/18 04:00 97.9 68 18 122/70 (87) 100 08/08/18 02:56 70 19 40 08/08/18 00:52 66 21 40 08/08/18 00:00 86 08/08/18 00:00 Mechanical Ventilator 08/08/18 00:00 98.4 66 19 108/60 (76) 100 08/07/18 23:10 70 20 40 08/07/18 21:27 72 28 40 08/07/18 20:00 40 08/07/18 20:00 72 11/28/18 20:00 99.1 77 17 124/63 (83) 100 08/07/18 20:00 Mechanical Ventilator 08/07/18 19:25 67 17 40 08/07/18 17:15 65 16 40 08/07/18 16:00 40 08/07/18 16:00 97.9 68 16 121/60 (80) 100 08/07/18 16:00 66 08/07/18 16:00 Mechanical Ventilator 08/07/18 15:30 70 16 40 08/07/18 12:53 68 18 40 08/07/18 12:00 Mechanical Ventilator 08/07/18 12:00 98.7 70 20 101/61 (74) 100 08/07/18 12:00 69 08/07/18 12:00 40 Intake and Output 08/07/18 08/08/18 18:59 06:59 Intake Total 920 ml 900 ml Output Total 350 ml Balance 570 ml 900 ml Free Water 80 ml IV Total 60 ml Tube Feeding 840 ml 840 ml Output Urine Total 350 ml Laboratory Tests Test 08/08/18 02:55 White Blood Count 8.7 K/UL (4.8-10.8) Red Blood Count 3.83 M/UL (4.70-6.10) L Hemoglobin 10.4 G/DL (14.2-18.0) L Hematocrit 32.4 % (42.0-52.0) L Mean Corpuscular Volume 85 FL (80-99) Mean Corpuscular Hemoglobin 27.2 PG (27.0-31.0) Mean Corpuscular Hemoglobin Concent 32.2 G/DL (32.0-36.0) Red Cell Distribution Width 15.5 % (11.6-14.8) H Platelet Count 241 K/UL (150-450) Mean Platelet Volume 6.9 FL (6.5-10.1) Neutrophils (%) (Auto) 64.5 % (45.0-75.0) Lymphocytes (%) (Auto) 18.5 % (20.0-45.0) L Monocytes (%) (Auto) 10.1 % (1.0-10.0) H Eosinophils (%) (Auto) 6.2 % (0.0-3.0) H Basophils (%) (Auto) 0.6 % (0.0-2.0) Sodium Level 136 MMOL/L (136-145) Potassium Level 4.8 MMOL/L (3.5-5.1) Chloride Level 104 MMOL/L (98-107) Carbon Dioxide Level 21 MMOL/L (21-32) Anion Gap 11 mmol/L (5-15) Blood Urea Nitrogen 27 mg/dL (7-18) H Creatinine 1.2 MG/DL (0.55-1.30) Estimat Glomerular Filtration Rate > 60 mL/min (>60) Glucose Level 108 MG/DL (74-106) H Calcium Level 8.8 MG/DL (8.5-10.1) Height (Feet): 5 Height (Inches): 8.00 Weight (Pounds): 137 General Appearance: WD/WN, no apparent distress, alert Cardiovascular: normal rate Respiratory/Chest: normal breath sounds, no respiratory distress Abdominal Exam: normal bowel sounds, non tender, soft Extremities: normal range of motion, non-tender Emanuel Quesada HOOD FITTER Aug 08, 2018 11:27
[2018-08-08 12:00] VITALS: BP 114/58
--- NOTE | 2018-08-08 14:42 | Infectious Diseases Prog Note ---
Assessment/Plan Assessment/Plan Assessment 67 yo male who is vent dependent and was brought to the ED on 07/31/18 with GIB and increased sputum. UTI UA positive 08/01/18 UCxESBL Proteus Sen to erta, zosyn and bactrim; 08/02/18 UCx ESBL P.mirabilis Increase oral secretions -CXR 08/05: Increased bilateral interstitial edema over one day.Suspect developing left pleural effusion No evidence for PNA on CXR -sp cx ESBL P.mirabils (S Bactrim), S. maltophilia (S Bactrim) Leukocytosis up to 13 Now resolved Afebrile Hx Constipation Chronic respiratory failure, Hypothyroidism GERD Hypertension Hx C. diff Dysphagia, Esophagitis GI bleed Anemia. Trached vent depeendent PEG Plan - Continue Bactrim PO/NG DS BID #6/7 (End date 08/09/18) -08/03 SP Vancomycin and Cefepime #3 -08/01 SP Ceftriaxone x1 - Monitor CBC and temps -Trach/oral care -Aspiration precautions Thank you for this consult. We will continue to follow the patient during this hospitalization. Subjective Allergies: Coded Allergies: NO KNOWN DRUG ALLERGIES (Verified Allergy, Unknown, 09/11/16) Subjective afebrile no leukocytosis Fio2 40% Objective Vital Signs Last 24 Hour Vital Signs Date Time Temp Pulse Resp B/P (MAP) Pulse Ox O2 Delivery O2 Flow Rate FiO2 08/08/18 12:53 74 18 40 08/08/18 12:00 Mechanical Ventilator 08/08/18 12:00 40 08/08/18 12:00 65 08/08/18 12:00 99.0 68 16 114/58 (76) 100 08/08/18 10:31 70 22 40 08/08/18 08:40 71 18 40 08/08/18 08:00 66 08/08/18 08:00 98.3 69 17 113/60 (77) 100 08/08/18 08:00 Mechanical Ventilator 08/08/18 08:00 40 08/08/18 06:40 67 20 40 08/08/18 05:05 65 16 40 08/08/18 04:00 40 08/08/18 04:00 Mechanical Ventilator 08/08/18 04:00 74 08/08/18 04:00 97.9 68 18 122/70 (87) 100 08/08/18 02:56 70 19 40 08/08/18 00:52 66 21 40 08/08/18 00:00 86 08/08/18 00:00 Mechanical Ventilator 08/08/18 00:00 98.4 66 19 108/60 (76) 100 08/07/18 23:10 70 20 40 08/07/18 21:27 72 28 40 08/07/18 20:00 40 08/07/18 20:00 72 08/07/18 20:00 99.1 77 17 124/63 (83) 100 08/07/18 20:00 Mechanical Ventilator 08/07/18 19:25 67 17 40 08/07/18 17:15 65 16 40 08/07/18 16:00 40 08/07/18 16:00 97.9 68 16 121/60 (80) 100 08/07/18 16:00 66 08/07/18 16:00 Mechanical Ventilator 08/07/18 15:30 70 16 40 Height (Feet): 5 Height (Inches): 8.00 Weight (Pounds): 137 Objective Gen: NAD. Trached HEENT: NCAT, MMM, eyes open not following No Oral lesion, no scleral icterus NECK: full range of motion, supple, no meningismus, No LAD, No JVD LUNGS: CTAB, No W/C, No Accessory muscle use CARDS: RRR, S1, S2, No M/R/G, ABD: Soft, NT, ND, No R/G, + BS, No HSM, No Masses, PEG (No E/P) : Deferred Ext: C/C/E, Pulses 2+ B/L (DP, Rad): NEURO: A/O x 0, Strength and Sensation Grossly intact PSYCH: mood/affect normal SKIN: Warm not rashes Laboratory Tests Test 08/08/18 02:55 White Blood Count 8.7 K/UL (4.8-10.8) Red Blood Count 3.83 M/UL (4.70-6.10) L Hemoglobin 10.4 G/DL (14.2-18.0) L Hematocrit 32.4 % (42.0-52.0) L Mean Corpuscular Volume 85 FL (80-99) Mean Corpuscular Hemoglobin 27.2 PG (27.0-31.0) Mean Corpuscular Hemoglobin Concent 32.2 G/DL (32.0-36.0) Red Cell Distribution Width 15.5 % (11.6-14.8) H Platelet Count 241 K/UL (150-450) Mean Platelet Volume 6.9 FL (6.5-10.1) Neutrophils (%) (Auto) 64.5 % (45.0-75.0) Lymphocytes (%) (Auto) 18.5 % (20.0-45.0) L Monocytes (%) (Auto) 10.1 % (1.0-10.0) H Eosinophils (%) (Auto) 6.2 % (0.0-3.0) H Basophils (%) (Auto) 0.6 % (0.0-2.0) Sodium Level 136 MMOL/L (136-145) Potassium Level 4.8 MMOL/L (3.5-5.1) Chloride Level 104 MMOL/L (98-107) Carbon Dioxide Level 21 MMOL/L (21-32) Anion Gap 11 mmol/L (5-15) Blood Urea Nitrogen 27 mg/dL (7-18) H Creatinine 1.2 MG/DL (0.55-1.30) Estimat Glomerular Filtration Rate > 60 mL/min (>60) Glucose Level 108 MG/DL (74-106) H Calcium Level 8.8 MG/DL (8.5-10.1) Current Medications Medications (Trade) Dose Ordered Sig/Wanda Route PRN Reason Start Time Stop Time Status Last Admin Dose Admin Acetaminophen (Tylenol) 650 mg Q4H PRN GT Mild Pain/Temp > 100.5 08/01/18 02:00 08/31/18 01:59 08/04/18 17:48 Chlorhexidine Gluconate (Jasmin-Hex 2%) 1 applic DAILY@1999 TOPIC 08/02/18 20:00 09/01/18 19:59 08/07/18 20:14 Lansoprazole (Prevacid) 30 mg BID GT 08/03/18 18:00 09/02/18 17:59 08/08/18 09:51 Levothyroxine Sodium (Synthroid) 25 mcg DAILY IV 08/04/18 09:00 09/03/18 08:59 08/08/18 09:51 Ondansetron HCl (Zofran) 4 mg Q6H PRN IVP Nausea & Vomiting 08/03/18 20:29 09/02/18 20:28 08/04/18 06:30 Trimethoprim/ Sulfamethoxazole (Bactrim-DS) 20 ml EVERY 12 HOURS GT 08/03/18 21:00 08/10/18 09:59 08/08/18 09:51 Lisy Lai M.D. Aug 08, 2018 14:42
--- NOTE | 2018-08-08 15:00 | Nephrology Progress Note ---
Assessment/Plan Problem List: (1) Tracheostomy dependence (2) Hypokalemia (3) GI bleed Assessment GI bleed Anemia low Iron Low K resolved Plan today's lab OK DC IV - GT feeding K supplement Gastric support IV Iron Per GI Subjective ROS Limited/Unobtainable: No Constitutional: Reports: malaise Objective Objective Last 24 Hour Vital Signs Date Time Temp Pulse Resp B/P (MAP) Pulse Ox O2 Delivery O2 Flow Rate FiO2 08/08/18 12:53 74 18 40 08/08/18 12:00 Mechanical Ventilator 08/08/18 12:00 40 08/08/18 12:00 65 08/08/18 12:00 99.0 68 16 114/58 (76) 100 08/08/18 10:31 70 22 40 08/08/18 08:40 71 18 40 08/08/18 08:00 66 08/08/18 08:00 98.3 69 17 113/60 (77) 100 08/08/18 08:00 Mechanical Ventilator 08/08/18 08:00 40 08/08/18 06:40 67 20 40 08/08/18 05:05 65 16 40 08/08/18 04:00 40 08/08/18 04:00 Mechanical Ventilator 08/08/18 04:00 74 08/08/18 04:00 97.9 68 18 122/70 (87) 100 08/08/18 02:56 70 19 40 08/08/18 00:52 66 21 40 08/08/18 00:00 86 08/08/18 00:00 Mechanical Ventilator 08/08/18 00:00 98.4 66 19 108/60 (76) 100 08/07/18 23:10 70 20 40 08/07/18 21:27 72 28 40 08/07/18 20:00 40 08/07/18 20:00 72 08/07/18 20:00 99.1 77 17 124/63 (83) 100 08/07/18 20:00 Mechanical Ventilator 08/07/18 19:25 67 17 40 08/07/18 17:15 65 16 40 08/07/18 16:00 40 08/07/18 16:00 97.9 68 16 121/60 (80) 100 08/07/18 16:00 66 08/07/18 16:00 Mechanical Ventilator 08/07/18 15:30 70 16 40 Intake and Output 08/07/18 08/08/18 18:59 06:59 Intake Total 920 ml 900 ml Output Total 350 ml Balance 570 ml 900 ml Free Water 80 ml IV Total 60 ml Tube Feeding 840 ml 840 ml Output Urine Total 350 ml Laboratory Tests 08/08/18 02:55: White Blood Count 8.7, Red Blood Count 3.83L, Hemoglobin 10.4L, Hematocrit 32.4L , Mean Corpuscular Volume 85, Mean Corpuscular Hemoglobin 27.2, Mean Corpuscular Hemoglobin Concent 32.2, Red Cell Distribution Width 15.5H, Platelet Count 241, Mean Platelet Volume 6.9, Neutrophils (%) (Auto) 64.5, Lymphocytes (%) (Auto) 18.5L, Monocytes (%) (Auto) 10.1H, Eosinophils (%) (Auto ) 6.2H, Basophils (%) (Auto) 0.6, Sodium Level 136, Potassium Level 4.8, Chloride Level 104, Carbon Dioxide Level 21, Anion Gap 11, Blood Urea Nitrogen 27H, Creatinine 1.2, Estimat Glomerular Filtration Rate > 60, Glucose Level 108H , Calcium Level 8.8 Height (Feet): 5 Height (Inches): 8.00 Weight (Pounds): 137 General Appearance: no apparent distress Objective no change Sav Salvador MD Aug 08, 2018 15:00
--- NOTE | 2018-08-08 15:15 | General Progress Note ---
Assessment/Plan Problem List: (1) GI bleed ICD Codes: K92.2 - Gastrointestinal hemorrhage, unspecified SNOMED: 58550469 (2) Respiratory failure, [id number] ICD Codes: J96.20 - Respiratory failure, [id number] SNOMED: 27591701 (3) Anemia ICD Codes: D64.9 - Anemia, unspecified SNOMED: 469497142 (4) Hypothyroidism ICD Codes: E03.9 - Hypothyroidism, unspecified SNOMED: 93602429 Status: stable, progressing Assessment/Plan vent abx prn cbc bmp am dc planning ltach eval Subjective Constitutional: Reports: weakness Allergies: Coded Allergies: NO KNOWN DRUG ALLERGIES (Verified Allergy, Unknown, 09/11/16) All Systems: reviewed and negative except above Subjective trach vent altered calm Objective Last 24 Hour Vital Signs Date Time Temp Pulse Resp B/P (MAP) Pulse Ox O2 Delivery O2 Flow Rate FiO2 08/08/18 12:53 74 18 40 08/08/18 12:00 Mechanical Ventilator 08/08/18 12:00 40 08/08/18 12:00 65 08/08/18 12:00 99.0 68 16 114/58 (76) 100 08/08/18 10:31 70 22 40 08/08/18 08:40 71 18 40 08/08/18 08:00 66 08/08/18 08:00 98.3 69 17 113/60 (77) 100 08/08/18 08:00 Mechanical Ventilator 08/08/18 08:00 40 08/08/18 06:40 67 20 40 08/08/18 05:05 65 16 40 08/08/18 04:00 40 08/08/18 04:00 Mechanical Ventilator 08/08/18 04:00 74 08/08/18 04:00 97.9 68 18 122/70 (87) 100 08/08/18 02:56 70 19 40 08/08/18 00:52 66 21 40 08/08/18 00:00 86 08/08/18 00:00 Mechanical Ventilator 08/08/18 00:00 98.4 66 19 108/60 (76) 100 08/07/18 23:10 70 20 40 08/07/18 21:27 72 28 40 08/07/18 20:00 40 08/07/18 20:00 72 08/07/18 20:00 99.1 77 17 124/63 (83) 100 08/07/18 20:00 Mechanical Ventilator 08/07/18 19:25 67 17 40 08/07/18 17:15 65 16 40 08/07/18 16:00 40 08/07/18 16:00 97.9 68 16 121/60 (80) 100 08/07/18 16:00 66 08/07/18 16:00 Mechanical Ventilator 08/07/18 15:30 70 16 40 Intake and Output 08/07/18 08/08/18 18:59 06:59 Intake Total 920 ml 900 ml Output Total 350 ml Balance 570 ml 900 ml Free Water 80 ml IV Total 60 ml Tube Feeding 840 ml 840 ml Output Urine Total 350 ml Laboratory Tests 08/08/18 02:55: White Blood Count 8.7, Red Blood Count 3.83L, Hemoglobin 10.4L, Hematocrit 32.4L , Mean Corpuscular Volume 85, Mean Corpuscular Hemoglobin 27.2, Mean Corpuscular Hemoglobin Concent 32.2, Red Cell Distribution Width 15.5H, Platelet Count 241, Mean Platelet Volume 6.9, Neutrophils (%) (Auto) 64.5, Lymphocytes (%) (Auto) 18.5L, Monocytes (%) (Auto) 10.1H, Eosinophils (%) (Auto ) 6.2H, Basophils (%) (Auto) 0.6, Sodium Level 136, Potassium Level 4.8, Chloride Level 104, Carbon Dioxide Level 21, Anion Gap 11, Blood Urea Nitrogen 27H, Creatinine 1.2, Estimat Glomerular Filtration Rate > 60, Glucose Level 108H , Calcium Level 8.8 Height (Feet): 5 Height (Inches): 8.00 Weight (Pounds): 137 General Appearance: lethargic EENT: normal ENT inspection Neck: normal alignment Cardiovascular: normal peripheral pulses, normal rate, regular rhythm Respiratory/Chest: chest wall non-tender, lungs clear, normal breath sounds Abdomen: normal bowel sounds, non tender, soft Extremities: normal inspection Edema: no edema noted Arm (L), no edema noted Arm (R), no edema noted Leg (L), no edema noted Leg (R), no edema noted Pedal (L), no edema noted Pedal (R), no edema noted Generalized Neurologic: motor weakness Skin: normal pigmentation, warm/dry Viveros,Gato Chi-Lissy DO Aug 08, 2018 15:15
[2018-08-08 16:00] VITALS: BP 94/57
[2018-08-08] MEDS: Dyna-Hex 2% Top Sol 2oz TOPIC SCH (19:53)
[2018-08-08 20:00] VITALS: BP 133/66
--- NOTE | 2018-08-08 22:56 | General Progress Note ---
Assessment/Plan Problem List: (1) Alzheimer's dementia ICD Codes: G30.9 - Alzheimer's disease, unspecified SNOMED: 65969081 (2) Psychosis ICD Codes: F29 - Psychosis SNOMED: 96894218 Assessment/Plan seroquel prn lacks [place] he has a dpoa Subjective Allergies: Coded Allergies: NO KNOWN DRUG ALLERGIES (Verified Allergy, Unknown, 09/11/16) Subjective the pt has waxing and waning of consciousness Objective Last 24 Hour Vital Signs Date Time Temp Pulse Resp B/P (MAP) Pulse Ox O2 Delivery O2 Flow Rate FiO2 08/08/18 21:18 70 18 40 08/08/18 20:00 40 08/08/18 20:00 Mechanical Ventilator 08/08/18 20:00 98.4 71 19 133/66 (88) 100 08/08/18 20:00 71 08/08/18 19:04 68 17 40 08/08/18 19:04 68 21 40 08/08/18 17:16 83 21 40 08/08/18 16:00 68 08/08/18 16:00 99.2 70 22 94/57 (69) 100 08/08/18 16:00 Mechanical Ventilator 08/08/18 16:00 40 08/08/18 14:52 71 21 40 08/08/18 12:53 74 18 40 08/08/18 12:00 Mechanical Ventilator 08/08/18 12:00 40 08/08/18 12:00 65 08/08/18 12:00 99.0 68 16 114/58 (76) 100 08/08/18 10:31 70 22 40 08/08/18 08:40 71 18 40 08/08/18 08:00 66 08/08/18 08:00 98.3 69 17 113/60 (77) 100 08/08/18 08:00 Mechanical Ventilator 08/08/18 08:00 40 08/08/18 06:40 67 20 40 08/08/18 05:05 65 16 40 08/08/18 04:00 40 08/08/18 04:00 Mechanical Ventilator 08/08/18 04:00 74 08/08/18 04:00 97.9 68 18 122/70 (87) 100 08/08/18 02:56 70 19 40 08/08/18 00:52 66 21 40 08/08/18 00:00 86 08/08/18 00:00 Mechanical Ventilator 08/08/18 00:00 98.4 66 19 108/60 (76) 100 08/07/18 23:10 70 20 40 Intake and Output 08/07/18 08/08/18 19:00 07:00 Intake Total 920 ml 900 ml Output Total 350 ml 600 ml Balance 570 ml 300 ml Free Water 80 ml IV Total 60 ml Tube Feeding 840 ml 840 ml Output Urine Total 350 ml 600 ml Laboratory Tests 08/08/18 02:55: White Blood Count 8.7, Red Blood Count 3.83L, Hemoglobin 10.4L, Hematocrit 32.4L , Mean Corpuscular Volume 85, Mean Corpuscular Hemoglobin 27.2, Mean Corpuscular Hemoglobin Concent 32.2, Red Cell Distribution Width 15.5H, Platelet Count 241, Mean Platelet Volume 6.9, Neutrophils (%) (Auto) 64.5, Lymphocytes (%) (Auto) 18.5L, Monocytes (%) (Auto) 10.1H, Eosinophils (%) (Auto ) 6.2H, Basophils (%) (Auto) 0.6, Sodium Level 136, Potassium Level 4.8, Chloride Level 104, Carbon Dioxide Level 21, Anion Gap 11, Blood Urea Nitrogen 27H, Creatinine 1.2, Estimat Glomerular Filtration Rate > 60, Glucose Level 108H , Calcium Level 8.8 Height (Feet): 5 Height (Inches): 8.00 Weight (Pounds): 137 General Appearance: lethargic, confused, agitated Toma Ramirez MD Aug 08, 2018 22:56
[2018-08-09] VITALS: BP 125/66
[2018-08-09 04:00] VITALS: BP 124/74
[2018-08-09 05:15] LABS: BASOPHILS % (AUTO) 2.5 % (0.0-2.0); EOSINOPHILS % (AUTO) 6.8 % (0.0-3.0); HEMATOCRIT 32.2 % (42.0-52.0); HEMOGLOBIN 10.2 G/DL (14.2-18.0); LYMPHOCYTES % (AUTO) 16.2 % (20.0-45.0); MEAN CORPUSCULAR VOLUME 86 FL (80-99); MONOCYTES % (AUTO) 11.9 % (1.0-10.0); NEUTROPHILS % (AUTO) 62.6 % (45.0-75.0); PLATELET COUNT 246 K/UL (150-450); RED BLOOD COUNT 3.76 M/UL (4.70-6.10); RED CELL DISTRIBUTION WIDTH 15.6 % (11.6-14.8); WHITE BLOOD COUNT 8.2 K/UL (4.8-10.8)
[2018-08-09 06:04] LABS: ALANINE AMINOTRANSFERASE 25 U/L (12-78); ALBUMIN 2.5 G/DL (3.4-5.0); ALBUMIN/GLOBULIN RATIO 0.6 (1.0-2.7); ALKALINE PHOSPHATASE 129 U/L (46-116); ANION GAP 10 mmol/L (5-15); ASPARTATE AMINO TRANSFERASE 19 U/L (15-37); BILIRUBIN,TOTAL 0.1 MG/DL (0.2-1.0); BLOOD UREA NITROGEN 22 mg/dL (7-18); CALCIUM 8.5 MG/DL (8.5-10.1); CARBON DIOXIDE 22 MMOL/L (21-32); CHLORIDE 103 MMOL/L (98-107); CREATININE 1.1 MG/DL (0.55-1.30); PHOSPHORUS 2.7 MG/DL (2.5-4.9); SODIUM 135 MMOL/L (136-145)
[2018-08-09 06:30] LABS: POTASSIUM 7.3 MMOL/L (3.5-5.1)
--- NOTE | 2018-08-09 07:19 | General Progress Note ---
Assessment/Plan Status: stable Assessment/Plan # Anemia of iron deficiency due to underlying chronic medical issues, multifactorial. --> Anemia w/u has been reviewed. Ferritin at 74 --> No evidence of hemolysis is noted, peripheral smear has been reviewed. --> Hgb goal >7. Transfuse prn. --> Completed IV iron x5 days # Leukocytosis. Likely related to underlying infection versus reactive process. --> WBC has improved/resolved --> Peripheral has been reviewed, no blasts noted --> Medications have been reviewed --> Imaging has been reviewed. CXR shows Suboptimal positioning. No interval consolidation, overt edema or other acute cardiopulmonary findings. --> Urine culture shows gram negative bacteria --> Completed abx, empiric treatment # Upper GI vomiting bleed. GI is following, appreciate recs. --> Path report shows benign esophageal squamous mucosa --> Protonix as needed # Nonverbal status # Dysphagia. s/p peg # Resp failure. s/p trach/vent GREATLY APPRECIATE CONSULTATION. Subjective Date patient seen: Aug 09, 2018 ROS Limited/Unobtainable: Yes Hematologic/Lymphatic: Reports: anemia Allergies: Coded Allergies: NO KNOWN DRUG ALLERGIES (Verified Allergy, Unknown, 09/11/16) Subjective No acute events. H/H stable. VS stable. Nonverbal. Objective Last 24 Hour Vital Signs Date Time Temp Pulse Resp B/P (MAP) Pulse Ox O2 Delivery O2 Flow Rate FiO2 08/09/18 05:09 73 20 40 08/09/18 04:00 Mechanical Ventilator 08/09/18 04:00 98.3 74 20 124/74 (91) 100 08/09/18 04:00 72 08/09/18 04:00 40 08/09/18 03:07 71 22 40 08/09/18 00:35 69 16 40 08/09/18 00:00 69 08/09/18 00:00 40 08/09/18 00:00 Mechanical Ventilator 08/09/18 00:00 98.4 72 19 125/66 (85) 99 08/08/18 22:30 78 16 40 08/08/18 21:18 70 18 40 08/08/18 20:00 40 08/08/18 20:00 Mechanical Ventilator 08/08/18 20:00 98.4 71 19 133/66 (88) 100 08/08/18 20:00 71 08/08/18 19:04 68 17 40 08/08/18 19:04 68 21 40 08/08/18 17:16 83 21 40 08/08/18 16:00 68 08/08/18 16:00 99.2 70 22 94/57 (69) 100 08/08/18 16:00 Mechanical Ventilator 08/08/18 16:00 40 08/08/18 14:52 71 21 40 08/08/18 12:53 74 18 40 08/08/18 12:00 Mechanical Ventilator 08/08/18 12:00 40 08/08/18 12:00 65 08/08/18 12:00 99.0 68 16 114/58 (76) 100 08/08/18 10:31 70 22 40 08/08/18 08:40 71 18 40 08/08/18 08:00 66 08/08/18 08:00 98.3 69 17 113/60 (77) 100 08/08/18 08:00 Mechanical Ventilator 08/08/18 08:00 40 Intake and Output 08/08/18 08/09/18 19:00 07:00 Intake Total 1160 ml 890 ml Output Total 800 ml 500 ml Balance 360 ml 390 ml Free Water 200 ml 50 ml Tube Feeding 840 ml 840 ml Other 120 ml Output Urine Total 800 ml 500 ml # Bowel Movements 1 Laboratory Tests 08/09/18 02:55: White Blood Count 8.2, Red Blood Count 3.76L, Hemoglobin 10.2L, Hematocrit 32.2L , Mean Corpuscular Volume 86, Mean Corpuscular Hemoglobin 27.2, Mean Corpuscular Hemoglobin Concent 31.8L, Red Cell Distribution Width 15.6H, Platelet Count 246, Mean Platelet Volume 6.7, Neutrophils (%) (Auto) 62.6, Lymphocytes (%) (Auto) 16.2L, Monocytes (%) (Auto) 11.9H, Eosinophils (%) (Auto ) 6.8H, Basophils (%) (Auto) 2.5H, Erythrocyte Sedimentation Rate 82H, Sodium Level 135L, Potassium Level 7.3#*H, Chloride Level 103, Carbon Dioxide Level 22 , Anion Gap 10, Blood Urea Nitrogen 22H, Creatinine 1.1, Estimat Glomerular Filtration Rate > 60, Glucose Level 82, Calcium Level 8.5, Phosphorus Level 2.7 , Magnesium Level 1.9, Total Bilirubin 0.1L, Aspartate Amino Transf (AST/SGOT) 19, Alanine Aminotransferase (ALT/SGPT) 25, Alkaline Phosphatase 129H, C- Reactive Protein, Quantitative 2.8H, Total Protein 7.0, Albumin 2.5L, Globulin 4.5, Albumin/Globulin Ratio 0.6L 08/09/18 06:50: Pro-B-Type Natriuretic Peptide [Pending] Height (Feet): 5 Height (Inches): 8.00 Weight (Pounds): 137 Objective PHYSICAL EXAMINATION: VITAL SIGNS: Have been reviewed GENERAL: No acute distress. nonverbal HEENT: Trach site is intact.on vent CHEST: Bibasilar rales CARDIOVASCULAR: Regular rate and rhythm. GASTROINTESTINAL: Positive bowel sounds. G-tube site is intact. EXTREMITIES: + edema. NEUROLOGICAL: The patient does not follow neurological exam. Reflexes equal on both sides. No organomegaly. Nikos Nath MD Aug 09, 2018 07:19
[2018-08-09 08:00] VITALS: BP 123/67
[2018-08-09] MEDS: Bactrim Susp 20ml GT SCH ×2 (08:11→20:24)
--- NOTE | 2018-08-09 10:53 | Pulmonology Progress Note ---
Assessment/Plan Problems: (1) Upper GI bleed (2) Anemia (3) Chronic respiratory failure (4) Sepsis (5) Alzheimer's dementia (6) Severe protein-calorie malnutrition (7) Feeding by G-tube Assessment/Plan repeat K again continue abx tolerating feeding still lots of secretions check cultures wbc decreasing ID evaluation appreciated H2 blockers symptomatic treatment dvt prophylaxis Subjective ROS Limited/Unobtainable: Yes Constitutional: Reports: no symptoms Allergies: Coded Allergies: NO KNOWN DRUG ALLERGIES (Verified Allergy, Unknown, 09/11/16) Objective Last 24 Hour Vital Signs Date Time Temp Pulse Resp B/P (MAP) Pulse Ox O2 Delivery O2 Flow Rate FiO2 08/09/18 08:00 40 08/09/18 08:00 97.8 78 19 123/67 (85) 100 08/09/18 08:00 72 08/09/18 08:00 Mechanical Ventilator 08/09/18 05:09 73 20 40 08/09/18 04:00 Mechanical Ventilator 08/09/18 04:00 98.3 74 20 124/74 (91) 100 08/09/18 04:00 72 08/09/18 04:00 40 08/09/18 03:07 71 22 40 08/09/18 00:35 69 16 40 08/09/18 00:00 69 08/09/18 00:00 40 08/09/18 00:00 Mechanical Ventilator 08/09/18 00:00 98.4 72 19 125/66 (85) 99 08/08/18 22:30 78 16 40 08/08/18 21:18 70 18 40 08/08/18 20:00 40 08/08/18 20:00 Mechanical Ventilator 08/08/18 20:00 98.4 71 19 133/66 (88) 100 08/08/18 20:00 71 08/08/18 19:04 68 17 40 08/08/18 19:04 68 21 40 08/08/18 17:16 83 21 40 08/08/18 16:00 68 08/08/18 16:00 99.2 70 22 94/57 (69) 100 08/08/18 16:00 Mechanical Ventilator 08/08/18 16:00 40 08/08/18 14:52 71 21 40 08/08/18 12:53 74 18 40 08/08/18 12:00 Mechanical Ventilator 08/08/18 12:00 40 08/08/18 12:00 65 08/08/18 12:00 99.0 68 16 114/58 (76) 100 Intake and Output 08/08/18 08/09/18 19:00 07:00 Intake Total 1160 ml 890 ml Output Total 800 ml 500 ml Balance 360 ml 390 ml Free Water 200 ml 50 ml Tube Feeding 840 ml 840 ml Other 120 ml Output Urine Total 800 ml 500 ml # Bowel Movements 1 General Appearance: cachetic HEENT: normocephalic Respiratory/Chest: chest wall non-tender, lungs clear Cardiovascular: normal peripheral pulses, normal rate Abdomen: normal bowel sounds, soft, non tender Genitourinary: normal external genitalia Extremities: no cyanosis Skin: no rash Neurologic/Psychiatric: chainstitch elastic attacher II-XII grossly normal Laboratory Tests 08/09/18 02:55: White Blood Count 8.2, Red Blood Count 3.76L, Hemoglobin 10.2L, Hematocrit 32.2L , Mean Corpuscular Volume 86, Mean Corpuscular Hemoglobin 27.2, Mean Corpuscular Hemoglobin Concent 31.8L, Red Cell Distribution Width 15.6H, Platelet Count 246, Mean Platelet Volume 6.7, Neutrophils (%) (Auto) 62.6, Lymphocytes (%) (Auto) 16.2L, Monocytes (%) (Auto) 11.9H, Eosinophils (%) (Auto ) 6.8H, Basophils (%) (Auto) 2.5H, Erythrocyte Sedimentation Rate 82H, Sodium Level 135L, Potassium Level 7.3#*H, Chloride Level 103, Carbon Dioxide Level 22 , Anion Gap 10, Blood Urea Nitrogen 22H, Creatinine 1.1, Estimat Glomerular Filtration Rate > 60, Glucose Level 82, Calcium Level 8.5, Phosphorus Level 2.7 , Magnesium Level 1.9, Total Bilirubin 0.1L, Aspartate Amino Transf (AST/SGOT) 19, Alanine Aminotransferase (ALT/SGPT) 25, Alkaline Phosphatase 129H, C- Reactive Protein, Quantitative 2.8H, Total Protein 7.0, Albumin 2.5L, Globulin 4.5, Albumin/Globulin Ratio 0.6L 08/09/18 06:50: Pro-B-Type Natriuretic Peptide 421H Current Medications Medications (Trade) Dose Ordered Sig/Wanda Route PRN Reason Start Time Stop Time Status Last Admin Dose Admin Acetaminophen (Tylenol) 650 mg Q4H PRN GT Mild Pain/Temp > 100.5 08/01/18 02:00 08/31/18 01:59 08/04/18 17:48 Chlorhexidine Gluconate (Jasmin-Hex 2%) 1 applic DAILY@1999 TOPIC 08/02/18 20:00 09/01/18 19:59 08/08/18 19:53 Lansoprazole (Prevacid) 30 mg BID GT 08/03/18 18:00 09/02/18 17:59 08/09/18 08:11 Levothyroxine Sodium (Synthroid) 25 mcg DAILY IV 08/04/18 09:00 09/03/18 08:59 08/09/18 08:54 Ondansetron HCl (Zofran) 4 mg Q6H PRN IVP Nausea & Vomiting 08/03/18 20:29 09/02/18 20:28 08/04/18 06:30 Trimethoprim/ Sulfamethoxazole (Bactrim-DS) 20 ml EVERY 12 HOURS GT 08/03/18 21:00 08/09/18 23:59 08/09/18 08:11 Huma Keating MD Aug 09, 2018 10:53
--- NOTE | 2018-08-09 10:54 | GI Progress Note ---
Assessment/Plan Problems: (1) Iron deficiency ICD Codes: E61.1 - Iron deficiency SNOMED: 27535269 (2) Upper GI bleed ICD Codes: K92.2 - Upper gastrointestinal hemorrhage SNOMED: 69162170 (3) Severe erosive esophagitis (4) Malfunction of gastrostomy tube ICD Codes: K94.23 - Gastrostomy malfunction SNOMED: 824836301 (5) Protein-calorie malnutrition, severe ICD Codes: E43 - Unspecified severe protein-calorie malnutrition SNOMED: 183043227 (6) Esophagitis ICD Codes: K20.9 - Esophagitis SNOMED: 66302047 (7) Feeding by G-tube ICD Codes: Z93.1 - Gastrostomy status SNOMED: 345426283, 136111094 (8) Severe protein-calorie malnutrition ICD Codes: E43 - Unspecified severe protein-calorie malnutrition SNOMED: 630048044 Status: stable Status Narrative Discussed with Dr. Wilson. Assessment/Plan Assessment - Dark stools/ Anemia - severe GERD with stricture - OBS - Resp failure, trach - s/p GT - Contractures Recommendations - IVF - PPI - Follow H&H - Resume TF - fu labs - dc planning Subjective Subjective limited Objective Last 24 Hour Vital Signs Date Time Temp Pulse Resp B/P (MAP) Pulse Ox O2 Delivery O2 Flow Rate FiO2 08/09/18 08:00 40 08/09/18 08:00 97.8 78 19 123/67 (85) 100 08/09/18 08:00 72 08/09/18 08:00 Mechanical Ventilator 08/09/18 05:09 73 20 40 08/09/18 04:00 Mechanical Ventilator 08/09/18 04:00 98.3 74 20 124/74 (91) 100 08/09/18 04:00 72 08/09/18 04:00 40 08/09/18 03:07 71 22 40 08/09/18 00:35 69 16 40 08/09/18 00:00 69 08/09/18 00:00 40 08/09/18 00:00 Mechanical Ventilator 08/09/18 00:00 98.4 72 19 125/66 (85) 99 08/08/18 22:30 78 16 40 08/08/18 21:18 70 18 40 08/08/18 20:00 40 08/08/18 20:00 Mechanical Ventilator 08/08/18 20:00 98.4 71 19 133/66 (88) 100 08/08/18 20:00 71 08/08/18 19:04 68 17 40 08/08/18 19:04 68 21 40 08/08/18 17:16 83 21 40 08/08/18 16:00 68 08/08/18 16:00 99.2 70 22 94/57 (69) 100 08/08/18 16:00 Mechanical Ventilator 08/08/18 16:00 40 08/08/18 14:52 71 21 40 08/08/18 12:53 74 18 40 08/08/18 12:00 Mechanical Ventilator 08/08/18 12:00 40 08/08/18 12:00 65 08/08/18 12:00 99.0 68 16 114/58 (76) 100 Intake and Output 08/08/18 08/09/18 18:59 06:59 Intake Total 1160 ml 890 ml Output Total 1400 ml 500 ml Balance -240 ml 390 ml Free Water 200 ml 50 ml Tube Feeding 840 ml 840 ml Other 120 ml Output Urine Total 1400 ml 500 ml # Bowel Movements 1 Laboratory Tests Test 08/09/18 02:55 08/09/18 06:50 White Blood Count 8.2 K/UL (4.8-10.8) Red Blood Count 3.76 M/UL (4.70-6.10) L Hemoglobin 10.2 G/DL (14.2-18.0) L Hematocrit 32.2 % (42.0-52.0) L Mean Corpuscular Volume 86 FL (80-99) Mean Corpuscular Hemoglobin 27.2 PG (27.0-31.0) Mean Corpuscular Hemoglobin Concent 31.8 G/DL (32.0-36.0) L Red Cell Distribution Width 15.6 % (11.6-14.8) H Platelet Count 246 K/UL (150-450) Mean Platelet Volume 6.7 FL (6.5-10.1) Neutrophils (%) (Auto) 62.6 % (45.0-75.0) Lymphocytes (%) (Auto) 16.2 % (20.0-45.0) L Monocytes (%) (Auto) 11.9 % (1.0-10.0) H Eosinophils (%) (Auto) 6.8 % (0.0-3.0) H Basophils (%) (Auto) 2.5 % (0.0-2.0) H Erythrocyte Sedimentation Rate 82 MM/HR (0-20) H Sodium Level 135 MMOL/L (136-145) L Potassium Level 7.3 MMOL/L (3.5-5.1) #*H Chloride Level 103 MMOL/L (98-107) Carbon Dioxide Level 22 MMOL/L (21-32) Anion Gap 10 mmol/L (5-15) Blood Urea Nitrogen 22 mg/dL (7-18) H Creatinine 1.1 MG/DL (0.55-1.30) Estimat Glomerular Filtration Rate > 60 mL/min (>60) Glucose Level 82 MG/DL (74-106) Calcium Level 8.5 MG/DL (8.5-10.1) Phosphorus Level 2.7 MG/DL (2.5-4.9) Magnesium Level 1.9 MG/DL (1.8-2.4) Total Bilirubin 0.1 MG/DL (0.2-1.0) L Aspartate Amino Transf (AST/SGOT) 19 U/L (15-37) Alanine Aminotransferase (ALT/SGPT) 25 U/L (12-78) Alkaline Phosphatase 129 U/L (46-116) H C-Reactive Protein, Quantitative 2.8 mg/dL (0.00-0.90) H Total Protein 7.0 G/DL (6.4-8.2) Albumin 2.5 G/DL (3.4-5.0) L Globulin 4.5 g/dL Albumin/Globulin Ratio 0.6 (1.0-2.7) L Pro-B-Type Natriuretic Peptide 421 pg/mL (0-125) H Height (Feet): 5 Height (Inches): 8.00 Weight (Pounds): 137 General Appearance: WD/WN, no apparent distress, alert Cardiovascular: normal rate Respiratory/Chest: normal breath sounds, no respiratory distress Abdominal Exam: normal bowel sounds, non tender, soft Extremities: normal range of motion, non-tender Emanuel Quesada NP Aug 09, 2018 10:54
[2018-08-09 12:00] VITALS: BP 108/57
--- NOTE | 2018-08-09 12:50 | General Progress Note ---
Assessment/Plan Problem List: (1) GI bleed ICD Codes: K92.2 - Gastrointestinal hemorrhage, unspecified SNOMED: 50038031 (2) Respiratory failure, [id number] ICD Codes: J96.20 - Respiratory failure, [id number] SNOMED: 50088367 (3) Anemia ICD Codes: D64.9 - Anemia, unspecified SNOMED: 520534209 (4) Hypothyroidism ICD Codes: E03.9 - Hypothyroidism, unspecified SNOMED: 16258318 Status: stable, progressing Assessment/Plan vent abx prn cbc bmp am dc planning ltach eval Subjective Constitutional: Reports: weakness Allergies: Coded Allergies: NO KNOWN DRUG ALLERGIES (Verified Allergy, Unknown, 09/11/16) All Systems: reviewed and negative except above Subjective trach vent altered calm Objective Last 24 Hour Vital Signs Date Time Temp Pulse Resp B/P (MAP) Pulse Ox O2 Delivery O2 Flow Rate FiO2 08/09/18 12:00 40 08/09/18 12:00 97.7 72 20 108/57 (74) 99 08/09/18 12:00 Mechanical Ventilator 08/09/18 11:08 78 25 40 08/09/18 09:17 71 23 40 08/09/18 08:00 40 08/09/18 08:00 97.8 78 19 123/67 (85) 100 08/09/18 08:00 72 08/09/18 08:00 Mechanical Ventilator 08/09/18 06:49 72 19 40 08/09/18 05:09 73 20 40 08/09/18 04:00 Mechanical Ventilator 08/09/18 04:00 98.3 74 20 124/74 (91) 100 08/09/18 04:00 72 08/09/18 04:00 40 08/09/18 03:07 71 22 40 08/09/18 00:35 69 16 40 08/09/18 00:00 69 08/09/18 00:00 40 08/09/18 00:00 Mechanical Ventilator 08/09/18 00:00 98.4 72 19 125/66 (85) 99 08/08/18 22:30 78 16 40 08/08/18 21:18 70 18 40 08/08/18 20:00 40 08/08/18 20:00 Mechanical Ventilator 08/08/18 20:00 98.4 71 19 133/66 (88) 100 08/08/18 20:00 71 08/08/18 19:04 68 17 40 08/08/18 19:04 68 21 40 08/08/18 17:16 83 21 40 08/08/18 16:00 68 08/08/18 16:00 99.2 70 22 94/57 (69) 100 08/08/18 16:00 Mechanical Ventilator 08/08/18 16:00 40 08/08/18 14:52 71 21 40 08/08/18 12:53 74 18 40 Intake and Output 08/08/18 08/09/18 18:59 06:59 Intake Total 1160 ml 890 ml Output Total 1400 ml 500 ml Balance -240 ml 390 ml Free Water 200 ml 50 ml Tube Feeding 840 ml 840 ml Other 120 ml Output Urine Total 1400 ml 500 ml # Bowel Movements 1 Laboratory Tests 08/09/18 02:55: White Blood Count 8.2, Red Blood Count 3.76L, Hemoglobin 10.2L, Hematocrit 32.2L , Mean Corpuscular Volume 86, Mean Corpuscular Hemoglobin 27.2, Mean Corpuscular Hemoglobin Concent 31.8L, Red Cell Distribution Width 15.6H, Platelet Count 246, Mean Platelet Volume 6.7, Neutrophils (%) (Auto) 62.6, Lymphocytes (%) (Auto) 16.2L, Monocytes (%) (Auto) 11.9H, Eosinophils (%) (Auto ) 6.8H, Basophils (%) (Auto) 2.5H, Erythrocyte Sedimentation Rate 82H, Sodium Level 135L, Potassium Level 7.3#*H, Chloride Level 103, Carbon Dioxide Level 22 , Anion Gap 10, Blood Urea Nitrogen 22H, Creatinine 1.1, Estimat Glomerular Filtration Rate > 60, Glucose Level 82, Calcium Level 8.5, Phosphorus Level 2.7 , Magnesium Level 1.9, Total Bilirubin 0.1L, Aspartate Amino Transf (AST/SGOT) 19, Alanine Aminotransferase (ALT/SGPT) 25, Alkaline Phosphatase 129H, C- Reactive Protein, Quantitative 2.8H, Total Protein 7.0, Albumin 2.5L, Globulin 4.5, Albumin/Globulin Ratio 0.6L 08/09/18 06:50: Pro-B-Type Natriuretic Peptide 421H 08/09/18 11:15: Potassium Level 4.4 Height (Feet): 5 Height (Inches): 8.00 Weight (Pounds): 137 General Appearance: lethargic EENT: normal ENT inspection Neck: normal alignment Cardiovascular: normal peripheral pulses, normal rate, regular rhythm Respiratory/Chest: chest wall non-tender, lungs clear, normal breath sounds Abdomen: normal bowel sounds, non tender, soft Extremities: normal inspection Edema: no edema noted Arm (L), no edema noted Arm (R), no edema noted Leg (L), no edema noted Leg (R), no edema noted Pedal (L), no edema noted Pedal (R), no edema noted Generalized Neurologic: motor weakness Skin: normal pigmentation, warm/dry Gato Viveros DO Aug 09, 2018 12:49
--- NOTE | 2018-08-09 13:50 | Nephrology Progress Note ---
Assessment/Plan Problem List: (1) Tracheostomy dependence (2) Hypokalemia (3) GI bleed Assessment GI bleed Anemia low Iron Low K resolved Plan today's lab high K likely hemolysis , repeat K DC IV - GT feeding K supplement Gastric support IV Iron Per GI Subjective ROS Limited/Unobtainable: Yes Objective Objective Last 24 Hour Vital Signs Date Time Temp Pulse Resp B/P (MAP) Pulse Ox O2 Delivery O2 Flow Rate FiO2 08/09/18 13:06 73 18 40 08/09/18 12:00 40 08/09/18 12:00 97.7 72 20 108/57 (74) 99 08/09/18 12:00 Mechanical Ventilator 08/09/18 11:08 78 25 40 08/09/18 09:17 71 23 40 08/09/18 08:00 40 08/09/18 08:00 97.8 78 19 123/67 (85) 100 08/09/18 08:00 72 08/09/18 08:00 Mechanical Ventilator 08/09/18 06:49 72 19 40 08/09/18 05:09 73 20 40 08/09/18 04:00 Mechanical Ventilator 08/09/18 04:00 98.3 74 20 124/74 (91) 100 08/09/18 04:00 72 08/09/18 04:00 40 08/09/18 03:07 71 22 40 08/09/18 00:35 69 16 40 08/09/18 00:00 69 08/09/18 00:00 40 08/09/18 00:00 Mechanical Ventilator 08/09/18 00:00 98.4 72 19 125/66 (85) 99 08/08/18 22:30 78 16 40 08/08/18 21:18 70 18 40 08/08/18 20:00 40 08/08/18 20:00 Mechanical Ventilator 08/08/18 20:00 98.4 71 19 133/66 (88) 100 08/08/18 20:00 71 08/08/18 19:04 68 17 40 08/08/18 19:04 68 21 40 08/08/18 17:16 83 21 40 08/08/18 16:00 68 08/08/18 16:00 99.2 70 22 94/57 (69) 100 08/08/18 16:00 Mechanical Ventilator 08/08/18 16:00 40 08/08/18 14:52 71 21 40 Intake and Output 08/08/18 08/09/18 18:59 06:59 Intake Total 1160 ml 890 ml Output Total 1400 ml 500 ml Balance -240 ml 390 ml Free Water 200 ml 50 ml Tube Feeding 840 ml 840 ml Other 120 ml Output Urine Total 1400 ml 500 ml # Bowel Movements 1 Laboratory Tests 08/09/18 02:55: White Blood Count 8.2, Red Blood Count 3.76L, Hemoglobin 10.2L, Hematocrit 32.2L , Mean Corpuscular Volume 86, Mean Corpuscular Hemoglobin 27.2, Mean Corpuscular Hemoglobin Concent 31.8L, Red Cell Distribution Width 15.6H, Platelet Count 246, Mean Platelet Volume 6.7, Neutrophils (%) (Auto) 62.6, Lymphocytes (%) (Auto) 16.2L, Monocytes (%) (Auto) 11.9H, Eosinophils (%) (Auto ) 6.8H, Basophils (%) (Auto) 2.5H, Erythrocyte Sedimentation Rate 82H, Sodium Level 135L, Potassium Level 7.3#*H, Chloride Level 103, Carbon Dioxide Level 22 , Anion Gap 10, Blood Urea Nitrogen 22H, Creatinine 1.1, Estimat Glomerular Filtration Rate > 60, Glucose Level 82, Calcium Level 8.5, Phosphorus Level 2.7 , Magnesium Level 1.9, Total Bilirubin 0.1L, Aspartate Amino Transf (AST/SGOT) 19, Alanine Aminotransferase (ALT/SGPT) 25, Alkaline Phosphatase 129H, C- Reactive Protein, Quantitative 2.8H, Total Protein 7.0, Albumin 2.5L, Globulin 4.5, Albumin/Globulin Ratio 0.6L 08/09/18 06:50: Pro-B-Type Natriuretic Peptide 421H 08/09/18 11:15: Potassium Level 4.4 Height (Feet): 5 Height (Inches): 8.00 Weight (Pounds): 137 General Appearance: no apparent distress EENT: other - trach Cardiovascular: normal rate Respiratory/Chest: decreased breath sounds Abdomen: soft Objective no change Sav Salvador MD Aug 09, 2018 13:50
--- NOTE | 2018-08-09 14:07 | General Progress Note ---
Assessment/Plan Problem List: (1) Alzheimer's dementia ICD Codes: G30.9 - Alzheimer's disease, unspecified SNOMED: 19006129 (2) Psychosis ICD Codes: F29 - Psychosis SNOMED: 38019846 Status: stable, progressing Assessment/Plan seroquel prn lacks capcity he has a dpoa Subjective Neurologic/Psychiatric: Reports: anxiety, depressed Allergies: Coded Allergies: NO KNOWN DRUG ALLERGIES (Verified Allergy, Unknown, 09/11/16) Subjective the pt is the same. the pt has waxing and waning of consciousness Objective Last 24 Hour Vital Signs Date Time Temp Pulse Resp B/P (MAP) Pulse Ox O2 Delivery O2 Flow Rate FiO2 08/09/18 13:06 73 18 40 08/09/18 12:00 40 08/09/18 12:00 97.7 72 20 108/57 (74) 99 08/09/18 12:00 Mechanical Ventilator 08/09/18 11:08 78 25 40 08/09/18 09:17 71 23 40 08/09/18 08:00 40 08/09/18 08:00 97.8 78 19 123/67 (85) 100 08/09/18 08:00 72 08/09/18 08:00 Mechanical Ventilator 08/09/18 06:49 72 19 40 08/09/18 05:09 73 20 40 08/09/18 04:00 Mechanical Ventilator 08/09/18 04:00 98.3 74 20 124/74 (91) 100 08/09/18 04:00 72 08/09/18 04:00 40 08/09/18 03:07 71 22 40 08/09/18 00:35 69 16 40 08/09/18 00:00 69 08/09/18 00:00 40 08/09/18 00:00 Mechanical Ventilator 08/09/18 00:00 98.4 72 19 125/66 (85) 99 08/08/18 22:30 78 16 40 08/08/18 21:18 70 18 40 08/08/18 20:00 40 08/08/18 20:00 Mechanical Ventilator 08/08/18 20:00 98.4 71 19 133/66 (88) 100 08/08/18 20:00 71 08/08/18 19:04 68 17 40 08/08/18 19:04 68 21 40 08/08/18 17:16 83 21 40 08/08/18 16:00 68 08/08/18 16:00 99.2 70 22 94/57 (69) 100 08/08/18 16:00 Mechanical Ventilator 08/08/18 16:00 40 08/08/18 14:52 71 21 40 Intake and Output 08/08/18 08/09/18 18:59 06:59 Intake Total 1160 ml 890 ml Output Total 1400 ml 500 ml Balance -240 ml 390 ml Free Water 200 ml 50 ml Tube Feeding 840 ml 840 ml Other 120 ml Output Urine Total 1400 ml 500 ml # Bowel Movements 1 Laboratory Tests 08/09/18 02:55: White Blood Count 8.2, Red Blood Count 3.76L, Hemoglobin 10.2L, Hematocrit 32.2L , Mean Corpuscular Volume 86, Mean Corpuscular Hemoglobin 27.2, Mean Corpuscular Hemoglobin Concent 31.8L, Red Cell Distribution Width 15.6H, Platelet Count 246, Mean Platelet Volume 6.7, Neutrophils (%) (Auto) 62.6, Lymphocytes (%) (Auto) 16.2L, Monocytes (%) (Auto) 11.9H, Eosinophils (%) (Auto ) 6.8H, Basophils (%) (Auto) 2.5H, Erythrocyte Sedimentation Rate 82H, Sodium Level 135L, Potassium Level 7.3#*H, Chloride Level 103, Carbon Dioxide Level 22 , Anion Gap 10, Blood Urea Nitrogen 22H, Creatinine 1.1, Estimat Glomerular Filtration Rate > 60, Glucose Level 82, Calcium Level 8.5, Phosphorus Level 2.7 , Magnesium Level 1.9, Total Bilirubin 0.1L, Aspartate Amino Transf (AST/SGOT) 19, Alanine Aminotransferase (ALT/SGPT) 25, Alkaline Phosphatase 129H, C- Reactive Protein, Quantitative 2.8H, Total Protein 7.0, Albumin 2.5L, Globulin 4.5, Albumin/Globulin Ratio 0.6L 08/09/18 06:50: Pro-B-Type Natriuretic Peptide 421H 08/09/18 11:15: Potassium Level 4.4 Height (Feet): 5 Height (Inches): 8.00 Weight (Pounds): 137 General Appearance: lethargic, confused Toma Ramirez MD Aug 09, 2018 14:07
[2018-08-09 16:00] VITALS: BP 105/61
--- NOTE | 2018-08-09 18:37 | Infectious Diseases Prog Note ---
Assessment/Plan Assessment/Plan Assessment 67 yo male who is vent dependent and was brought to the ED on 07/31/18 with GIB and increased sputum. UTI UA positive 08/01/18 UCxESBL Proteus Sen to erta, zosyn and bactrim; 08/02/18 UCx ESBL P.mirabilis Increase oral secretions -CXR 08/05: Increased bilateral interstitial edema over one day.Suspect developing left pleural effusion No evidence for PNA on CXR -sp cx ESBL P.mirabils (S Bactrim), S. maltophilia (S Bactrim) Leukocytosis up to 13 Now resolved Afebrile Hx Constipation Chronic respiratory failure, Hypothyroidism GERD Hypertension Hx C. diff Dysphagia, Esophagitis GI bleed Anemia. Trached vent depeendent PEG Plan - Continue Bactrim PO/NG DS BID #7/ (End date 08/09/18) -08/03 SP Vancomycin and Cefepime #3 -08/01 SP Ceftriaxone x1 - Monitor CBC and temps -Trach/oral care -Aspiration precautions Thank you for this consult. We will continue to follow the patient during this hospitalization. Subjective Allergies: Coded Allergies: NO KNOWN DRUG ALLERGIES (Verified Allergy, Unknown, 09/11/16) Subjective afebrile no leukocytosis Fio2 40% Objective Vital Signs Last 24 Hour Vital Signs Date Time Temp Pulse Resp B/P (MAP) Pulse Ox O2 Delivery O2 Flow Rate FiO2 08/09/18 17:10 75 17 40 08/09/18 16:00 68 08/09/18 16:00 40 08/09/18 16:00 Mechanical Ventilator 08/09/18 16:00 98.6 69 19 105/61 (76) 98 08/09/18 15:02 84 19 40 08/09/18 13:06 73 18 40 08/09/18 12:00 40 08/09/18 12:00 97.7 72 20 108/57 (74) 99 08/09/18 12:00 72 08/09/18 12:00 Mechanical Ventilator 08/09/18 11:08 78 25 40 08/09/18 09:17 71 23 40 08/09/18 08:00 40 08/09/18 08:00 97.8 78 19 123/67 (85) 100 08/09/18 08:00 72 08/09/18 08:00 Mechanical Ventilator 08/09/18 06:49 72 19 40 08/09/18 05:09 73 20 40 08/09/18 04:00 Mechanical Ventilator 08/09/18 04:00 98.3 74 20 124/74 (91) 100 08/09/18 04:00 72 08/09/18 04:00 40 08/09/18 03:07 71 22 40 08/09/18 00:35 69 16 40 08/09/18 00:00 69 08/09/18 00:00 40 08/09/18 00:00 Mechanical Ventilator 08/09/18 00:00 98.4 72 19 125/66 (85) 99 08/08/18 22:30 78 16 40 08/08/18 21:18 70 18 40 08/08/18 20:00 40 08/08/18 20:00 Mechanical Ventilator 08/08/18 20:00 98.4 71 19 133/66 (88) 100 08/08/18 20:00 71 08/08/18 19:04 68 17 40 08/08/18 19:04 68 21 40 Height (Feet): 5 Height (Inches): 8.00 Weight (Pounds): 137 Objective Gen: NAD. Trached HEENT: NCAT, MMM, eyes open not following No Oral lesion, no scleral icterus NECK: full range of motion, supple, no meningismus, No LAD, No JVD LUNGS: CTAB, No W/C, No Accessory muscle use CARDS: RRR, S1, S2, No M/R/G, ABD: Soft, NT, ND, No R/G, + BS, No HSM, No Masses, PEG (No E/P) : Deferred Ext: C/C/E, Pulses 2+ B/L (DP, Rad): NEURO: A/O x 0, Strength and Sensation Grossly intact PSYCH: mood/affect normal SKIN: Warm not rashes Laboratory Tests Test 08/09/18 02:55 08/09/18 06:50 08/09/18 11:15 White Blood Count 8.2 K/UL (4.8-10.8) Red Blood Count 3.76 M/UL (4.70-6.10) L Hemoglobin 10.2 G/DL (14.2-18.0) L Hematocrit 32.2 % (42.0-52.0) L Mean Corpuscular Volume 86 FL (80-99) Mean Corpuscular Hemoglobin 27.2 PG (27.0-31.0) Mean Corpuscular Hemoglobin Concent 31.8 G/DL (32.0-36.0) L Red Cell Distribution Width 15.6 % (11.6-14.8) H Platelet Count 246 K/UL (150-450) Mean Platelet Volume 6.7 FL (6.5-10.1) Neutrophils (%) (Auto) 62.6 % (45.0-75.0) Lymphocytes (%) (Auto) 16.2 % (20.0-45.0) L Monocytes (%) (Auto) 11.9 % (1.0-10.0) H Eosinophils (%) (Auto) 6.8 % (0.0-3.0) H Basophils (%) (Auto) 2.5 % (0.0-2.0) H Erythrocyte Sedimentation Rate 82 MM/HR (0-20) H Sodium Level 135 MMOL/L (136-145) L Potassium Level 7.3 MMOL/L (3.5-5.1) #*H 4.4 MMOL/L (3.5-5.1) Chloride Level 103 MMOL/L (98-107) Carbon Dioxide Level 22 MMOL/L (21-32) Anion Gap 10 mmol/L (5-15) Blood Urea Nitrogen 22 mg/dL (7-18) H Creatinine 1.1 MG/DL (0.55-1.30) Estimat Glomerular Filtration Rate > 60 mL/min (>60) Glucose Level 82 MG/DL (74-106) Calcium Level 8.5 MG/DL (8.5-10.1) Phosphorus Level 2.7 MG/DL (2.5-4.9) Magnesium Level 1.9 MG/DL (1.8-2.4) Total Bilirubin 0.1 MG/DL (0.2-1.0) L Aspartate Amino Transf (AST/SGOT) 19 U/L (15-37) Alanine Aminotransferase (ALT/SGPT) 25 U/L (12-78) Alkaline Phosphatase 129 U/L (46-116) H C-Reactive Protein, Quantitative 2.8 mg/dL (0.00-0.90) H Total Protein 7.0 G/DL (6.4-8.2) Albumin 2.5 G/DL (3.4-5.0) L Globulin 4.5 g/dL Albumin/Globulin Ratio 0.6 (1.0-2.7) L Pro-B-Type Natriuretic Peptide 421 pg/mL (0-125) H Current Medications Medications (Trade) Dose Ordered Sig/Wanda Route PRN Reason Start Time Stop Time Status Last Admin Dose Admin Acetaminophen (Tylenol) 650 mg Q4H PRN GT Mild Pain/Temp > 100.5 08/01/18 02:00 08/31/18 01:59 08/04/18 17:48 Chlorhexidine Gluconate (Jasmin-Hex 2%) 1 applic DAILY@1999 TOPIC 08/02/18 20:00 09/01/18 19:59 08/08/18 19:53 Lansoprazole (Prevacid) 30 mg BID GT 08/03/18 18:00 09/02/18 17:59 08/09/18 17:15 Levothyroxine Sodium (Synthroid) 25 mcg DAILY IV 08/04/18 09:00 09/03/18 08:59 08/09/18 08:54 Ondansetron HCl (Zofran) 4 mg Q6H PRN IVP Nausea & Vomiting 08/03/18 20:29 09/02/18 20:28 08/04/18 06:30 Trimethoprim/ Sulfamethoxazole (Bactrim-DS) 20 ml EVERY 12 HOURS GT 08/03/18 21:00 08/09/18 23:59 08/09/18 08:11 Lisy Lai M.D. Aug 09, 2018 18:37
[2018-08-09 20:00] VITALS: BP 114/60
[2018-08-09] MEDS: Dyna-Hex 2% Top Sol 2oz TOPIC SCH (20:24)
[2018-08-09] MEDS ORDERED: NS 275ml ONE (22:24)
[2018-08-10] VITALS: BP 110/50
[2018-08-10 04:00] VITALS: BP 120/77
[2018-08-10 04:18] LABS: BASOPHILS % (AUTO) 0.7 % (0.0-2.0); EOSINOPHILS % (AUTO) 6.4 % (0.0-3.0); HEMATOCRIT 33.7 % (42.0-52.0); HEMOGLOBIN 11.1 G/DL (14.2-18.0); LYMPHOCYTES % (AUTO) 16.6 % (20.0-45.0); MEAN CORPUSCULAR VOLUME 84 FL (80-99); MONOCYTES % (AUTO) 10.5 % (1.0-10.0); NEUTROPHILS % (AUTO) 65.9 % (45.0-75.0); PLATELET COUNT 247 K/UL (150-450); RED CELL DISTRIBUTION WIDTH 15.2 % (11.6-14.8); WHITE BLOOD COUNT 10.3 K/UL (4.8-10.8)
[2018-08-10 05:40] LABS: ALANINE AMINOTRANSFERASE 34 U/L (12-78); ALBUMIN 2.7 G/DL (3.4-5.0); ALBUMIN/GLOBULIN RATIO 0.5 (1.0-2.7); ALKALINE PHOSPHATASE 131 U/L (46-116); ANION GAP 11 mmol/L (5-15); ASPARTATE AMINO TRANSFERASE 21 U/L (15-37); BILIRUBIN,TOTAL 0.2 MG/DL (0.2-1.0); BLOOD UREA NITROGEN 32 mg/dL (7-18); CARBON DIOXIDE 22 MMOL/L (21-32); CHLORIDE 102 MMOL/L (98-107); CREATININE 1.4 MG/DL (0.55-1.30); PHOSPHORUS 3.1 MG/DL (2.5-4.9); SODIUM 135 MMOL/L (136-145)
--- NOTE | 2018-08-10 07:34 | General Progress Note ---
Assessment/Plan Problem List: (1) Alzheimer's dementia ICD Codes: G30.9 - Alzheimer's disease, unspecified SNOMED: 68898576 (2) Iron deficiency ICD Codes: E61.1 - Iron deficiency SNOMED: 13904554 (3) Upper GI bleed ICD Codes: K92.2 - Upper gastrointestinal hemorrhage SNOMED: 99242323 (4) Severe erosive esophagitis (5) Protein-calorie malnutrition, severe ICD Codes: E43 - Unspecified severe protein-calorie malnutrition SNOMED: 023492390 (6) Anemia ICD Codes: D64.9 - Anemia, unspecified SNOMED: 079839032 Assessment/Plan ppi reflux measures s/p EGD in this ADMISSION FU h&h>>> STABLE Subjective ROS Limited/Unobtainable: No Allergies: Coded Allergies: NO KNOWN DRUG ALLERGIES (Verified Allergy, Unknown, 09/11/16) Objective Last 24 Hour Vital Signs Date Time Temp Pulse Resp B/P (MAP) Pulse Ox O2 Delivery O2 Flow Rate FiO2 08/10/18 06:53 74 17 40 08/10/18 04:55 77 16 40 08/10/18 04:00 Mechanical Ventilator 08/10/18 04:00 40 08/10/18 04:00 98.2 72 16 120/77 (91) 99 08/10/18 04:00 75 08/10/18 02:37 74 18 40 08/10/18 00:50 75 17 40 08/10/18 00:00 40 08/10/18 00:00 73 08/10/18 00:00 98.4 73 18 110/50 (70) 99 08/10/18 00:00 Mechanical Ventilator 08/09/18 23:14 81 24 40 08/09/18 20:42 74 21 40 08/09/18 20:00 65 08/09/18 20:00 Mechanical Ventilator 08/09/18 20:00 98.4 75 22 114/60 (78) 97 08/09/18 20:00 40 08/09/18 18:53 78 20 40 08/09/18 17:10 75 17 40 08/09/18 16:00 68 08/09/18 16:00 40 08/09/18 16:00 Mechanical Ventilator 08/09/18 16:00 98.6 69 19 105/61 (76) 98 08/09/18 15:02 84 19 40 08/09/18 13:06 73 18 40 08/09/18 12:00 40 08/09/18 12:00 97.7 72 20 108/57 (74) 99 08/09/18 12:00 72 08/09/18 12:00 Mechanical Ventilator 08/09/18 11:08 78 25 40 08/09/18 09:17 71 23 40 08/09/18 08:00 40 08/09/18 08:00 97.8 78 19 123/67 (85) 100 08/09/18 08:00 72 08/09/18 08:00 Mechanical Ventilator Intake and Output 08/09/18 08/10/18 19:00 07:00 Intake Total 940 ml 890 ml Output Total 600 ml 500 ml Balance 340 ml 390 ml Free Water 100 ml 50 ml Tube Feeding 840 ml 840 ml Output Urine Total 600 ml 500 ml Laboratory Tests 08/09/18 11:15: Potassium Level 4.4 08/10/18 03:50: Potassium Level 5.0, White Blood Count 10.3, Red Blood Count 4.00L, Hemoglobin 11.1L, Hematocrit 33.7L, Mean Corpuscular Volume 84, Mean Corpuscular Hemoglobin 27.7, Mean Corpuscular Hemoglobin Concent 32.9, Red Cell Distribution Width 15.2H, Platelet Count 247, Mean Platelet Volume 7.8, Neutrophils (%) (Auto) 65.9, Lymphocytes (%) (Auto) 16.6L, Monocytes (%) (Auto) 10.5H, Eosinophils (%) (Auto) 6.4H, Basophils (%) (Auto) 0.7, Sodium Level 135L , Chloride Level 102, Carbon Dioxide Level 22, Anion Gap 11, Blood Urea Nitrogen 32H, Creatinine 1.4H, Estimat Glomerular Filtration Rate 50.2, Glucose Level 97, Calcium Level 9.0, Phosphorus Level 3.1, Magnesium Level 1.9, Total Bilirubin 0.2, Aspartate Amino Transf (AST/SGOT) 21, Alanine Aminotransferase ( ALT/SGPT) 34, Alkaline Phosphatase 131H, Total Protein 8.1, Albumin 2.7L, Globulin 5.4, Albumin/Globulin Ratio 0.5L Height (Feet): 5 Height (Inches): 8.00 Weight (Pounds): 137 General Appearance: lethargic EENT: normal ENT inspection Neck: supple Cardiovascular: normal rate Respiratory/Chest: decreased breath sounds Abdomen: normal bowel sounds, non tender, soft Extremities: non-tender Vitaliy Wilson MD Aug 10, 2018 07:34
--- NOTE | 2018-08-10 07:59 | Pulmonology Progress Note ---
Assessment/Plan Assessment/Plan ASSESSMENT GI hemorrhage/upper GI bleeding s/p upper endoscopy 07/13 diffuse ulcerative esophagitis peptic esophageal stricture anemia of iron deficiency severe protein calorie malnutrition VDRF with trach status, acute and chronic sepsis UTI with ESBL Proteus probably pneumonitis Alzheimer dementia Hypothyroidism Hypokalemia - resolved KAYLENE due to prerenal azotemia 2 to dehydration -improving PLAN OF CARE LUIS vent support ,pulmonary toilet no evidence of pneumonia on CXR , probably pneumonitis baseline ABG stable on current settings, keep as is follow-up with CXR strict aspiration precaution s/p abx, completed 08/09 ID follows urine culture + Proteus ESBL , repeated urine culture Proteus ESBL, sputum culture GNB two different species give 500 ml bolus for KAYLENE, s/p IVF nephro follows monitor renal parameters and electrolytes , correct e/lytes prn,avoid nephrotoxics check creat in am status post EGD biopsy pending on PPI GI follows dietary eval monitor H&H with goal to keep hemoglobin above 7 anemia workup consistent with ABHI heme follows s/p IV Venofer x5 days , HH stable TSH WNL, continue current dose of levothyroxine supportive care dc plan case discussed and evaluated by supervising physician Subjective Allergies: Coded Allergies: NO KNOWN DRUG ALLERGIES (Verified Allergy, Unknown, 09/11/16) Subjective leukocytosis resolved ,afebrile no signs of respiratory distress on current settings tolerates GT feeding HH at baseline creat up to 1.4 today Objective Last 24 Hour Vital Signs Date Time Temp Pulse Resp B/P (MAP) Pulse Ox O2 Delivery O2 Flow Rate FiO2 08/10/18 06:53 74 17 40 08/10/18 04:55 77 16 40 08/10/18 04:00 Mechanical Ventilator 08/10/18 04:00 40 08/10/18 04:00 98.2 72 16 120/77 (91) 99 08/10/18 04:00 75 08/10/18 02:37 74 18 40 08/10/18 00:50 75 17 40 08/10/18 00:00 40 08/10/18 00:00 73 08/10/18 00:00 98.4 73 18 110/50 (70) 99 08/10/18 00:00 Mechanical Ventilator 08/09/18 23:14 81 24 40 08/09/18 20:42 74 21 40 08/09/18 20:00 65 08/09/18 20:00 Mechanical Ventilator 08/09/18 20:00 98.4 75 22 114/60 (78) 97 08/09/18 20:00 40 08/09/18 18:53 78 20 40 08/09/18 17:10 75 17 40 08/09/18 16:00 68 08/09/18 16:00 40 08/09/18 16:00 Mechanical Ventilator 08/09/18 16:00 98.6 69 19 105/61 (76) 98 08/09/18 15:02 84 19 40 08/09/18 13:06 73 18 40 08/09/18 12:00 40 08/09/18 12:00 97.7 72 20 108/57 (74) 99 08/09/18 12:00 72 08/09/18 12:00 Mechanical Ventilator 08/09/18 11:08 78 25 40 08/09/18 09:17 71 23 40 08/09/18 08:00 40 08/09/18 08:00 97.8 78 19 123/67 (85) 100 08/09/18 08:00 72 08/09/18 08:00 Mechanical Ventilator Intake and Output 08/09/18 08/10/18 19:00 07:00 Intake Total 940 ml 890 ml Output Total 600 ml 500 ml Balance 340 ml 390 ml Free Water 100 ml 50 ml Tube Feeding 840 ml 840 ml Output Urine Total 600 ml 500 ml Objective General Appearance: cachetic, bedridden lethargic vent dependent male in NAD on vent AC 600-40%-16 HEENT: normocephalic, atraumatic, anicteric, status post trach - Portex#8, secretions moderate, yellow, thin Respiratory/Chest: lungs clear Cardiovascular: normal rate with SR on tele , RUE PICC intact Abdomen: normal bowel sounds, soft, non tender, non distended, G tube Neurologic/Psychiatric: abnormal gait - bedridden Musculoskeletal: atrophy - BLE Laboratory Tests 08/09/18 11:15: Potassium Level 4.4 08/10/18 03:50: Potassium Level 5.0, White Blood Count 10.3, Red Blood Count 4.00L, Hemoglobin 11.1L, Hematocrit 33.7L, Mean Corpuscular Volume 84, Mean Corpuscular Hemoglobin 27.7, Mean Corpuscular Hemoglobin Concent 32.9, Red Cell Distribution Width 15.2H, Platelet Count 247, Mean Platelet Volume 7.8, Neutrophils (%) (Auto) 65.9, Lymphocytes (%) (Auto) 16.6L, Monocytes (%) (Auto) 10.5H, Eosinophils (%) (Auto) 6.4H, Basophils (%) (Auto) 0.7, Sodium Level 135L , Chloride Level 102, Carbon Dioxide Level 22, Anion Gap 11, Blood Urea Nitrogen 32H, Creatinine 1.4H, Estimat Glomerular Filtration Rate 50.2, Glucose Level 97, Calcium Level 9.0, Phosphorus Level 3.1, Magnesium Level 1.9, Total Bilirubin 0.2, Aspartate Amino Transf (AST/SGOT) 21, Alanine Aminotransferase ( ALT/SGPT) 34, Alkaline Phosphatase 131H, Total Protein 8.1, Albumin 2.7L, Globulin 5.4, Albumin/Globulin Ratio 0.5L Current Medications Medications (Trade) Dose Ordered Sig/Wanda Route PRN Reason Start Time Stop Time Status Last Admin Dose Admin Acetaminophen (Tylenol) 650 mg Q4H PRN GT Mild Pain/Temp > 100.5 08/01/18 02:00 08/31/18 01:59 08/04/18 17:48 Chlorhexidine Gluconate (Jasmin-Hex 2%) 1 applic DAILY@1999 TOPIC 08/02/18 20:00 09/01/18 19:59 08/09/18 20:24 Lansoprazole (Prevacid) 30 mg BID GT 08/03/18 18:00 09/02/18 17:59 08/09/18 17:15 Levothyroxine Sodium (Synthroid) 25 mcg DAILY IV 08/04/18 09:00 09/03/18 08:59 08/09/18 08:54 Ondansetron HCl (Zofran) 4 mg Q6H PRN IVP Nausea & Vomiting 08/03/18 20:29 09/02/18 20:28 08/04/18 06:30 Amina Garcia NP Aug 10, 2018 07:59
[2018-08-10 08:00] VITALS: BP 111/61
--- NOTE | 2018-08-10 08:26 | General Progress Note ---
Assessment/Plan Problem List: (1) GI bleed ICD Codes: K92.2 - Gastrointestinal hemorrhage, unspecified SNOMED: 30147224 (2) Respiratory failure, [id number] ICD Codes: J96.20 - Respiratory failure, [id number] SNOMED: 40015809 (3) Anemia ICD Codes: D64.9 - Anemia, unspecified SNOMED: 647627382 (4) Hypothyroidism ICD Codes: E03.9 - Hypothyroidism, unspecified SNOMED: 16800135 Status: unchanged Assessment/Plan vent abx prn cbc bmp am dc planning ltach eval Subjective Constitutional: Reports: weakness Allergies: Coded Allergies: NO KNOWN DRUG ALLERGIES (Verified Allergy, Unknown, 09/11/16) All Systems: reviewed and negative except above Subjective trach vent altered calm Objective Last 24 Hour Vital Signs Date Time Temp Pulse Resp B/P (MAP) Pulse Ox O2 Delivery O2 Flow Rate FiO2 08/10/18 06:53 74 17 40 08/10/18 04:55 77 16 40 08/10/18 04:00 Mechanical Ventilator 08/10/18 04:00 40 08/10/18 04:00 98.2 72 16 120/77 (91) 99 08/10/18 04:00 75 08/10/18 02:37 74 18 40 08/10/18 00:50 75 17 40 08/10/18 00:00 40 08/10/18 00:00 73 08/10/18 00:00 98.4 73 18 110/50 (70) 99 08/10/18 00:00 Mechanical Ventilator 08/09/18 23:14 81 24 40 08/09/18 20:42 74 21 40 08/09/18 20:00 65 08/09/18 20:00 Mechanical Ventilator 08/09/18 20:00 98.4 75 22 114/60 (78) 97 08/09/18 20:00 40 08/09/18 18:53 78 20 40 08/09/18 17:10 75 17 40 08/09/18 16:00 68 08/09/18 16:00 40 08/09/18 16:00 Mechanical Ventilator 08/09/18 16:00 98.6 69 19 105/61 (76) 98 08/09/18 15:02 84 19 40 08/09/18 13:06 73 18 40 08/09/18 12:00 40 08/09/18 12:00 97.7 72 20 108/57 (74) 99 08/09/18 12:00 72 08/09/18 12:00 Mechanical Ventilator 08/09/18 11:08 78 25 40 08/09/18 09:17 71 23 40 Intake and Output 08/09/18 08/10/18 19:00 07:00 Intake Total 940 ml 890 ml Output Total 600 ml 500 ml Balance 340 ml 390 ml Free Water 100 ml 50 ml Tube Feeding 840 ml 840 ml Output Urine Total 600 ml 500 ml Laboratory Tests 08/09/18 11:15: Potassium Level 4.4 08/10/18 03:50: Potassium Level 5.0, White Blood Count 10.3, Red Blood Count 4.00L, Hemoglobin 11.1L, Hematocrit 33.7L, Mean Corpuscular Volume 84, Mean Corpuscular Hemoglobin 27.7, Mean Corpuscular Hemoglobin Concent 32.9, Red Cell Distribution Width 15.2H, Platelet Count 247, Mean Platelet Volume 7.8, Neutrophils (%) (Auto) 65.9, Lymphocytes (%) (Auto) 16.6L, Monocytes (%) (Auto) 10.5H, Eosinophils (%) (Auto) 6.4H, Basophils (%) (Auto) 0.7, Sodium Level 135L , Chloride Level 102, Carbon Dioxide Level 22, Anion Gap 11, Blood Urea Nitrogen 32H, Creatinine 1.4H, Estimat Glomerular Filtration Rate 50.2, Glucose Level 97, Calcium Level 9.0, Phosphorus Level 3.1, Magnesium Level 1.9, Total Bilirubin 0.2, Aspartate Amino Transf (AST/SGOT) 21, Alanine Aminotransferase ( ALT/SGPT) 34, Alkaline Phosphatase 131H, Total Protein 8.1, Albumin 2.7L, Globulin 5.4, Albumin/Globulin Ratio 0.5L Height (Feet): 5 Height (Inches): 8.00 Weight (Pounds): 137 General Appearance: lethargic EENT: normal ENT inspection Neck: normal alignment Cardiovascular: normal peripheral pulses, normal rate, regular rhythm Respiratory/Chest: chest wall non-tender, lungs clear, normal breath sounds Abdomen: normal bowel sounds, non tender, soft Extremities: normal inspection Edema: no edema noted Arm (L), no edema noted Arm (R), no edema noted Leg (L), no edema noted Leg (R), no edema noted Pedal (L), no edema noted Pedal (R), no edema noted Generalized Neurologic: motor weakness Skin: normal pigmentation, warm/dry Gato Viveros DO Aug 10, 2018 08:26
--- NOTE | 2018-08-10 11:46 | General Progress Note ---
Assessment/Plan Status: stable, unchanged Assessment/Plan # Anemia of iron deficiency due to underlying chronic medical issues, multifactorial. --> Cont to monitor and trend cbc --> Anemia w/u has been reviewed. Ferritin at 74 --> No evidence of hemolysis is noted, peripheral smear has been reviewed. --> Hgb goal >7. Transfuse prn. --> Completed IV iron x5 days # Leukocytosis. Was most likely reactive process. --> WBC has improved/resolved --> Peripheral has been reviewed, no blasts noted --> Medications have been reviewed --> Imaging has been reviewed. CXR shows Suboptimal positioning. No interval consolidation, overt edema or other acute cardiopulmonary findings. --> Urine culture shows gram negative bacteria --> Completed abx, empiric treatment # Upper GI vomiting bleed. GI is following, appreciate recs. --> Path report shows benign esophageal squamous mucosa --> Protonix as needed # Nonverbal status # Dysphagia. s/p peg # Resp failure. s/p trach/vent GREATLY APPRECIATE CONSULTATION. Subjective Date patient seen: Aug 10, 2018 ROS Limited/Unobtainable: Yes Hematologic/Lymphatic: Reports: anemia Allergies: Coded Allergies: NO KNOWN DRUG ALLERGIES (Verified Allergy, Unknown, 09/11/16) Subjective No acute events. Pt remains on trach and nonverbal. H/H stable. Objective Last 24 Hour Vital Signs Date Time Temp Pulse Resp B/P (MAP) Pulse Ox O2 Delivery O2 Flow Rate FiO2 08/10/18 11:11 81 18 40 08/10/18 09:33 79 18 40 08/10/18 09:00 75 08/10/18 08:00 40 08/10/18 08:00 Mechanical Ventilator 08/10/18 08:00 98.4 80 20 111/61 (78) 100 08/10/18 06:53 74 17 40 08/10/18 04:55 77 16 40 08/10/18 04:00 Mechanical Ventilator 08/10/18 04:00 40 08/10/18 04:00 98.2 72 16 120/77 (91) 99 08/10/18 04:00 75 08/10/18 02:37 74 18 40 08/10/18 00:50 75 17 40 08/10/18 00:00 40 08/10/18 00:00 73 08/10/18 00:00 98.4 73 18 110/50 (70) 99 08/10/18 00:00 Mechanical Ventilator 08/09/18 23:14 81 24 40 08/09/18 20:42 74 21 40 08/09/18 20:00 65 08/09/18 20:00 Mechanical Ventilator 08/09/18 20:00 98.4 75 22 114/60 (78) 97 08/09/18 20:00 40 08/09/18 18:53 78 20 40 08/09/18 17:10 75 17 40 08/09/18 16:00 68 08/09/18 16:00 40 08/09/18 16:00 Mechanical Ventilator 08/09/18 16:00 98.6 69 19 105/61 (76) 98 08/09/18 15:02 84 19 40 08/09/18 13:06 73 18 40 08/09/18 12:00 40 08/09/18 12:00 97.7 72 20 108/57 (74) 99 08/09/18 12:00 72 08/09/18 12:00 Mechanical Ventilator Intake and Output 08/09/18 08/10/18 19:00 07:00 Intake Total 940 ml 890 ml Output Total 600 ml 500 ml Balance 340 ml 390 ml Free Water 100 ml 50 ml Tube Feeding 840 ml 840 ml Output Urine Total 600 ml 500 ml Laboratory Tests 08/10/18 03:50: White Blood Count 10.3, Red Blood Count 4.00L, Hemoglobin 11.1L, Hematocrit 33.7L, Mean Corpuscular Volume 84, Mean Corpuscular Hemoglobin 27.7, Mean Corpuscular Hemoglobin Concent 32.9, Red Cell Distribution Width 15.2H, Platelet Count 247, Mean Platelet Volume 7.8, Neutrophils (%) (Auto) 65.9, Lymphocytes (%) (Auto) 16.6L, Monocytes (%) (Auto) 10.5H, Eosinophils (%) (Auto ) 6.4H, Basophils (%) (Auto) 0.7, Sodium Level 135L, Potassium Level 5.0, Chloride Level 102, Carbon Dioxide Level 22, Anion Gap 11, Blood Urea Nitrogen 32H, Creatinine 1.4H, Estimat Glomerular Filtration Rate 50.2, Glucose Level 97 , Calcium Level 9.0, Phosphorus Level 3.1, Magnesium Level 1.9, Total Bilirubin 0.2, Aspartate Amino Transf (AST/SGOT) 21, Alanine Aminotransferase (ALT/SGPT) 34, Alkaline Phosphatase 131H, Total Protein 8.1, Albumin 2.7L, Globulin 5.4, Albumin/Globulin Ratio 0.5L Height (Feet): 5 Height (Inches): 8.00 Weight (Pounds): 137 Objective PHYSICAL EXAMINATION: VITAL SIGNS: Have been reviewed GENERAL: No acute distress. nonverbal HEENT: Trach site is intact.on vent CHEST: Bibasilar rales CARDIOVASCULAR: Regular rate and rhythm. GASTROINTESTINAL: Positive bowel sounds. G-tube site is intact. EXTREMITIES: + edema. NEUROLOGICAL: The patient does not follow neurological exam. Reflexes equal on both sides. No organomegaly. Nikos Nath MD Aug 10, 2018 11:46
[2018-08-10] MEDS ORDERED: Albuterol/Ipratropium 3ml neb HHN PRN (11:56)
[2018-08-10 12:00] VITALS: BP 109/61
[2018-08-10] MEDS ORDERED: Sodium Chloride 500ML 500 ML IV ONE (12:00)
--- NOTE | 2018-08-10 12:10 | Infectious Diseases Prog Note ---
Assessment/Plan Assessment/Plan Assessment 67 yo male who is vent dependent and was brought to the ED on 07/31/18 with GIB and increased sputum. UTI , S/p Rx UA positive 08/01/18 UCxESBL Proteus Sen to erta, zosyn and bactrim; 08/02/18 UCx ESBL P.mirabilis Increase oral secretions -CXR 08/05: Increased bilateral interstitial edema over one day.Suspect developing left pleural effusion No evidence for PNA on CXR -sp cx ESBL P.mirabils (S Bactrim), S. maltophilia (S Bactrim) Leukocytosis up to 13 Now resolved Afebrile Hx Constipation Chronic respiratory failure, Hypothyroidism GERD Hypertension Hx C. diff Dysphagia, Esophagitis GI bleed Anemia. Trached vent depeendent PEG Plan - Continue to monitor off abx -08/09 SP Bactrim #7 -08/03 SP Vancomycin and Cefepime #3 -08/01 SP Ceftriaxone x1 - Monitor CBC and temps -Trach/oral care -Aspiration precautions Thank you for this consult. We will continue to follow the patient during this hospitalization. Subjective Allergies: Coded Allergies: NO KNOWN DRUG ALLERGIES (Verified Allergy, Unknown, 09/11/16) Subjective afebrile no leukocytosis Fio2 40% Objective Vital Signs Last 24 Hour Vital Signs Date Time Temp Pulse Resp B/P (MAP) Pulse Ox O2 Delivery O2 Flow Rate FiO2 08/10/18 11:11 81 18 40 08/10/18 09:33 79 18 40 08/10/18 09:00 75 08/10/18 08:00 40 08/10/18 08:00 Mechanical Ventilator 08/10/18 08:00 98.4 80 20 111/61 (78) 100 08/10/18 06:53 74 17 40 08/10/18 04:55 77 16 40 08/10/18 04:00 Mechanical Ventilator 08/10/18 04:00 40 08/10/18 04:00 98.2 72 16 120/77 (91) 99 08/10/18 04:00 75 08/10/18 02:37 74 18 40 08/10/18 00:50 75 17 40 08/10/18 00:00 40 08/10/18 00:00 73 08/10/18 00:00 98.4 73 18 110/50 (70) 99 08/10/18 00:00 Mechanical Ventilator 08/09/18 23:14 81 24 40 08/09/18 20:42 74 21 40 08/09/18 20:00 65 08/09/18 20:00 Mechanical Ventilator 08/09/18 20:00 98.4 75 22 114/60 (78) 97 08/09/18 20:00 40 08/09/18 18:53 78 20 40 08/09/18 17:10 75 17 40 08/09/18 16:00 68 08/09/18 16:00 40 08/09/18 16:00 Mechanical Ventilator 08/09/18 16:00 98.6 69 19 105/61 (76) 98 08/09/18 15:02 84 19 40 08/09/18 13:06 73 18 40 Height (Feet): 5 Height (Inches): 8.00 Weight (Pounds): 137 Objective Gen: NAD. Trached HEENT: NCAT, MMM, eyes open not following No Oral lesion, no scleral icterus NECK: full range of motion, supple, no meningismus, No LAD, No JVD LUNGS: CTAB, No W/C, No Accessory muscle use CARDS: RRR, S1, S2, No M/R/G, ABD: Soft, NT, ND, No R/G, + BS, No HSM, No Masses, PEG (No E/P) : Deferred Ext: C/C/E, Pulses 2+ B/L (DP, Rad): NEURO: A/O x 0, Strength and Sensation Grossly intact PSYCH: mood/affect normal SKIN: Warm not rashes Laboratory Tests Test 08/10/18 03:50 White Blood Count 10.3 K/UL (4.8-10.8) Red Blood Count 4.00 M/UL (4.70-6.10) L Hemoglobin 11.1 G/DL (14.2-18.0) L Hematocrit 33.7 % (42.0-52.0) L Mean Corpuscular Volume 84 FL (80-99) Mean Corpuscular Hemoglobin 27.7 PG (27.0-31.0) Mean Corpuscular Hemoglobin Concent 32.9 G/DL (32.0-36.0) Red Cell Distribution Width 15.2 % (11.6-14.8) H Platelet Count 247 K/UL (150-450) Mean Platelet Volume 7.8 FL (6.5-10.1) Neutrophils (%) (Auto) 65.9 % (45.0-75.0) Lymphocytes (%) (Auto) 16.6 % (20.0-45.0) L Monocytes (%) (Auto) 10.5 % (1.0-10.0) H Eosinophils (%) (Auto) 6.4 % (0.0-3.0) H Basophils (%) (Auto) 0.7 % (0.0-2.0) Sodium Level 135 MMOL/L (136-145) L Potassium Level 5.0 MMOL/L (3.5-5.1) Chloride Level 102 MMOL/L (98-107) Carbon Dioxide Level 22 MMOL/L (21-32) Anion Gap 11 mmol/L (5-15) Blood Urea Nitrogen 32 mg/dL (7-18) H Creatinine 1.4 MG/DL (0.55-1.30) H Estimat Glomerular Filtration Rate 50.2 mL/min (>60) Glucose Level 97 MG/DL (74-106) Calcium Level 9.0 MG/DL (8.5-10.1) Phosphorus Level 3.1 MG/DL (2.5-4.9) Magnesium Level 1.9 MG/DL (1.8-2.4) Total Bilirubin 0.2 MG/DL (0.2-1.0) Aspartate Amino Transf (AST/SGOT) 21 U/L (15-37) Alanine Aminotransferase (ALT/SGPT) 34 U/L (12-78) Alkaline Phosphatase 131 U/L (46-116) H Total Protein 8.1 G/DL (6.4-8.2) Albumin 2.7 G/DL (3.4-5.0) L Globulin 5.4 g/dL Albumin/Globulin Ratio 0.5 (1.0-2.7) L Current Medications Medications (Trade) Dose Ordered Sig/Wanda Route PRN Reason Start Time Stop Time Status Last Admin Dose Admin Acetaminophen (Tylenol) 650 mg Q4H PRN GT Mild Pain/Temp > 100.5 08/01/18 02:00 08/31/18 01:59 08/04/18 17:48 Albuterol/ Ipratropium (Albuterol/ Ipratropium) 3 ml Q4H PRN HHN Shortness of Breath 08/10/18 11:56 08/15/18 11:55 Chlorhexidine Gluconate (Jasmin-Hex 2%) 1 applic DAILY@2000 TOPIC 08/02/18 20:00 09/01/18 19:59 08/09/18 20:24 Lansoprazole (Prevacid) 30 mg BID GT 08/03/18 18:00 09/02/18 17:59 08/10/18 09:22 Levothyroxine Sodium (Synthroid) 25 mcg DAILY IV 08/04/18 09:00 09/03/18 08:59 08/10/18 09:22 Ondansetron HCl (Zofran) 4 mg Q6H PRN IVP Nausea & Vomiting 08/03/18 20:29 09/02/18 20:28 08/04/18 06:30 Sodium Chloride 500 ml @ 999 mls/hr Q31M ONCE IV 08/10/18 12:00 08/10/18 12:30 Lisy Lai M.D. Aug 10, 2018 12:10
--- NOTE | 2018-08-10 13:22 | Nephrology Progress Note ---
Assessment/Plan Problem List: (1) Tracheostomy dependence (2) Hypokalemia (3) GI bleed (4) Acute renal failure Assessment: cr hayde to 1.4 Assessment GI bleed Anemia low Iron Low K resolved Plan monitor renal parameters- Avoid Nephrotoxics DC IV - GT feeding K supplement Gastric support IV Iron Per GI Subjective ROS Limited/Unobtainable: Yes Objective Objective Last 24 Hour Vital Signs Date Time Temp Pulse Resp B/P (MAP) Pulse Ox O2 Delivery O2 Flow Rate FiO2 08/10/18 13:12 79 18 40 08/10/18 11:11 81 18 40 08/10/18 09:33 79 18 40 08/10/18 09:00 75 08/10/18 08:00 40 08/10/18 08:00 Mechanical Ventilator 08/10/18 08:00 98.4 80 20 111/61 (78) 100 08/10/18 06:53 74 17 40 08/10/18 04:55 77 16 40 08/10/18 04:00 Mechanical Ventilator 08/10/18 04:00 40 08/10/18 04:00 98.2 72 16 120/77 (91) 99 08/10/18 04:00 75 08/10/18 02:37 74 18 40 08/10/18 00:50 75 17 40 08/10/18 00:00 40 08/10/18 00:00 73 08/10/18 00:00 98.4 73 18 110/50 (70) 99 08/10/18 00:00 Mechanical Ventilator 08/09/18 23:14 81 24 40 08/09/18 20:42 74 21 40 08/09/18 20:00 65 08/09/18 20:00 Mechanical Ventilator 08/09/18 20:00 98.4 75 22 114/60 (78) 97 08/09/18 20:00 40 08/09/18 18:53 78 20 40 08/09/18 17:10 75 17 40 08/09/18 16:00 68 08/09/18 16:00 40 08/09/18 16:00 Mechanical Ventilator 08/09/18 16:00 98.6 69 19 105/61 (76) 98 08/09/18 15:02 84 19 40 Intake and Output 08/09/18 08/10/18 19:00 07:00 Intake Total 940 ml 890 ml Output Total 600 ml 500 ml Balance 340 ml 390 ml Free Water 100 ml 50 ml Tube Feeding 840 ml 840 ml Output Urine Total 600 ml 500 ml Laboratory Tests 08/10/18 03:50: White Blood Count 10.3, Red Blood Count 4.00L, Hemoglobin 11.1L, Hematocrit 33.7L, Mean Corpuscular Volume 84, Mean Corpuscular Hemoglobin 27.7, Mean Corpuscular Hemoglobin Concent 32.9, Red Cell Distribution Width 15.2H, Platelet Count 247, Mean Platelet Volume 7.8, Neutrophils (%) (Auto) 65.9, Lymphocytes (%) (Auto) 16.6L, Monocytes (%) (Auto) 10.5H, Eosinophils (%) (Auto ) 6.4H, Basophils (%) (Auto) 0.7, Sodium Level 135L, Potassium Level 5.0, Chloride Level 102, Carbon Dioxide Level 22, Anion Gap 11, Blood Urea Nitrogen 32H, Creatinine 1.4H, Estimat Glomerular Filtration Rate 50.2, Glucose Level 97 , Calcium Level 9.0, Phosphorus Level 3.1, Magnesium Level 1.9, Total Bilirubin 0.2, Aspartate Amino Transf (AST/SGOT) 21, Alanine Aminotransferase (ALT/SGPT) 34, Alkaline Phosphatase 131H, Total Protein 8.1, Albumin 2.7L, Globulin 5.4, Albumin/Globulin Ratio 0.5L Height (Feet): 5 Height (Inches): 8.00 Weight (Pounds): 137 General Appearance: no apparent distress Cardiovascular: normal rate Respiratory/Chest: decreased breath sounds Abdomen: soft Objective no change Sav Salvador MD Aug 10, 2018 13:22
[2018-08-10] MEDS ORDERED: NS 500ML ONE (15:59)
[2018-08-10] MEDS ORDERED: NS 275ml ONE (15:59)
[2018-08-10 16:00] VITALS: BP 125/83
[2018-08-10 20:00] VITALS: BP 133/78
[2018-08-10] MEDS: Dyna-Hex 2% Top Sol 2oz TOPIC SCH (20:03)
[2018-08-11] VITALS: BP 121/61
[2018-08-11 04:00] VITALS: BP 120/75
[2018-08-11 04:57] LABS: BASOPHILS % (AUTO) 0.6 % (0.0-2.0); EOSINOPHILS % (AUTO) 4.9 % (0.0-3.0); HEMATOCRIT 33.1 % (42.0-52.0); HEMOGLOBIN 10.8 G/DL (14.2-18.0); MEAN CORPUSCULAR VOLUME 86 FL (80-99); MONOCYTES % (AUTO) 10.5 % (1.0-10.0); PLATELET COUNT 247 K/UL (150-450); RED BLOOD COUNT 3.87 M/UL (4.70-6.10); RED CELL DISTRIBUTION WIDTH 15.9 % (11.6-14.8); WHITE BLOOD COUNT 12.3 K/UL (4.8-10.8)
[2018-08-11 05:23] LABS: ANION GAP 8 mmol/L (5-15); BLOOD UREA NITROGEN 32 mg/dL (7-18); CALCIUM 9.3 MG/DL (8.5-10.1); CARBON DIOXIDE 23 MMOL/L (21-32); CHLORIDE 103 MMOL/L (98-107); CREATININE 1.3 MG/DL (0.55-1.30); POTASSIUM 4.6 MMOL/L (3.5-5.1); SODIUM 134 MMOL/L (136-145)
--- NOTE | 2018-08-11 07:56 | Pulmonology Progress Note ---
Assessment/Plan Assessment/Plan ASSESSMENT GI hemorrhage/upper GI bleeding s/p upper endoscopy 07/13 diffuse ulcerative esophagitis peptic esophageal stricture anemia of iron deficiency severe protein calorie malnutrition VDRF with trach status, acute and chronic sepsis UTI with ESBL Proteus probably pneumonitis Alzheimer dementia Hypothyroidism Hypokalemia - resolved KAYLENE due to prerenal azotemia 2 to dehydration -improving PLAN OF CARE LUIS vent support ,pulmonary toilet no evidence of pneumonia on CXR , probably pneumonitis baseline ABG stable on current settings, keep as is follow-up with CXR in am strict aspiration precaution s/p abx, completed 08/09 ID follows urine culture + Proteus ESBL , repeated urine culture Proteus ESBL, sputum culture GNB two different species s/p 500 ml bolus for KAYLENE, creat down to 1.3 s/p IVF nephro follows monitor renal parameters and electrolytes , correct e/lytes prn, avoid nephrotoxics status post EGD biopsy revealed benign esophageal squamous mucosa on PPI GI follows dietary eval monitor H&H with goal to keep hemoglobin above 7 anemia workup consistent with ABHI heme follows s/p IV Venofer x5 days , HH stable TSH WNL, continue current dose of levothyroxine supportive care dc plan case discussed and evaluated by supervising physician Subjective Allergies: Coded Allergies: NO KNOWN DRUG ALLERGIES (Verified Allergy, Unknown, 09/11/16) Subjective mild leukocytosis today ,afebrile no signs of respiratory distress on current settings tolerates GT feeding HH at baseline creat down to 1.3 Objective Last 24 Hour Vital Signs Date Time Temp Pulse Resp B/P (MAP) Pulse Ox O2 Delivery O2 Flow Rate FiO2 08/11/18 06:54 70 17 40 08/11/18 05:00 82 19 40 08/11/18 04:00 98.6 81 20 120/75 (90) 100 08/11/18 04:00 83 08/11/18 04:00 40 08/11/18 04:00 Mechanical Ventilator 08/11/18 03:21 80 22 40 08/11/18 01:01 74 16 40 08/11/18 00:27 70 18 Mechanical Ventilator 40 08/11/18 00:00 40 08/11/18 00:00 Mechanical Ventilator 08/11/18 00:00 98.5 73 18 121/61 (81) 99 08/11/18 00:00 73 08/10/18 23:09 70 18 40 08/10/18 21:01 80 18 40 08/10/18 20:00 40 08/10/18 20:00 73 08/10/18 20:00 Mechanical Ventilator 08/10/18 20:00 98.0 78 20 133/78 (96) 100 08/10/18 18:59 79 20 40 08/10/18 17:23 77 20 40 08/10/18 16:00 Mechanical Ventilator 08/10/18 16:00 98.2 73 18 125/83 (97) 99 08/10/18 16:00 75 08/10/18 15:57 40 08/10/18 15:05 81 21 40 08/10/18 13:12 79 18 40 08/10/18 12:00 Mechanical Ventilator 08/10/18 12:00 76 08/10/18 12:00 98.6 78 26 109/61 (77) 100 08/10/18 12:00 40 08/10/18 11:11 81 18 40 08/10/18 09:33 79 18 40 08/10/18 09:00 75 08/10/18 08:00 40 08/10/18 08:00 Mechanical Ventilator 08/10/18 08:00 98.4 80 20 111/61 (78) 100 Intake and Output 08/10/18 08/11/18 19:00 07:00 Intake Total 1090 ml 860 ml Output Total 500 ml Balance 590 ml 860 ml Free Water 90 ml Tube Feeding 770 ml 770 ml Blood Product 200 ml Other 120 ml Output Urine Total 500 ml # Voids 1 # Bowel Movements 2 Objective General Appearance: cachetic, bedridden lethargic vent dependent male in NAD on vent AC 600-40%-16 HEENT: normocephalic, atraumatic, anicteric, status post trach - Portex#8, secretions small, yellow, thin Respiratory/Chest: lungs clear Cardiovascular: normal rate with SR on tele , RUE PICC intact Abdomen: normal bowel sounds, soft, non tender, non distended, G tube with TF Neurologic/Psychiatric: abnormal gait , bedridden, spastic Musculoskeletal: atrophy - BLE Laboratory Tests 08/11/18 03:05: White Blood Count 12.3H, Red Blood Count 3.87L, Hemoglobin 10.8L, Hematocrit 33.1L, Mean Corpuscular Volume 86, Mean Corpuscular Hemoglobin 27.9, Mean Corpuscular Hemoglobin Concent 32.6, Red Cell Distribution Width 15.9H, Platelet Count 247, Mean Platelet Volume 7.8, Neutrophils (%) (Auto) 71.0, Lymphocytes (%) (Auto) 13.0L, Monocytes (%) (Auto) 10.5H, Eosinophils (%) (Auto ) 4.9H, Basophils (%) (Auto) 0.6, Sodium Level 134L, Potassium Level 4.6, Chloride Level 103, Carbon Dioxide Level 23, Anion Gap 8, Blood Urea Nitrogen 32H, Creatinine 1.3, Estimat Glomerular Filtration Rate 54.7, Glucose Level 121H , Calcium Level 9.3 Current Medications Medications (Trade) Dose Ordered Sig/Wanda Route PRN Reason Start Time Stop Time Status Last Admin Dose Admin Acetaminophen (Tylenol) 650 mg Q4H PRN GT Mild Pain/Temp > 100.5 08/01/18 02:00 08/31/18 01:59 08/04/18 17:48 Albuterol/ Ipratropium (Albuterol/ Ipratropium) 3 ml Q4H PRN HHN Shortness of Breath 08/10/18 11:56 08/15/18 11:55 Chlorhexidine Gluconate (Jasmin-Hex 2%) 1 applic DAILY@1999 TOPIC 08/02/18 20:00 09/01/18 19:59 08/10/18 20:03 Lansoprazole (Prevacid) 30 mg BID GT 08/03/18 18:00 09/02/18 17:59 08/10/18 17:57 Levothyroxine Sodium (Synthroid) 25 mcg DAILY IV 08/04/18 09:00 09/03/18 08:59 08/10/18 09:22 Ondansetron HCl (Zofran) 4 mg Q6H PRN IVP Nausea & Vomiting 08/03/18 20:29 09/02/18 20:28 08/04/18 06:30 Amina Garcia NP Aug 11, 2018 07:56
[2018-08-11 08:00] VITALS: BP 103/50
--- NOTE | 2018-08-11 08:28 | General Progress Note ---
Assessment/Plan Problem List: (1) GI bleed ICD Codes: K92.2 - Gastrointestinal hemorrhage, unspecified SNOMED: 60127835 (2) Respiratory failure, [id number] ICD Codes: J96.20 - Respiratory failure, [id number] SNOMED: 58879103 (3) Anemia ICD Codes: D64.9 - Anemia, unspecified SNOMED: 716713249 (4) Hypothyroidism ICD Codes: E03.9 - Hypothyroidism, unspecified SNOMED: 09683268 Status: stable Assessment/Plan vent abx prn cbc bmp am dc planning ltach eval Subjective Constitutional: Reports: weakness Allergies: Coded Allergies: NO KNOWN DRUG ALLERGIES (Verified Allergy, Unknown, 09/11/16) All Systems: reviewed and negative except above Subjective trach vent altered calm Objective Last 24 Hour Vital Signs Date Time Temp Pulse Resp B/P (MAP) Pulse Ox O2 Delivery O2 Flow Rate FiO2 08/11/18 06:54 70 17 40 08/11/18 05:00 82 19 40 08/11/18 04:00 98.6 81 20 120/75 (90) 100 08/11/18 04:00 83 08/11/18 04:00 40 08/11/18 04:00 Mechanical Ventilator 08/11/18 03:21 80 22 40 08/11/18 01:01 74 16 40 08/11/18 00:27 70 18 Mechanical Ventilator 40 08/11/18 00:00 40 08/11/18 00:00 Mechanical Ventilator 08/11/18 00:00 98.5 73 18 121/61 (81) 99 08/11/18 00:00 73 08/10/18 23:09 70 18 40 08/10/18 21:01 80 18 40 08/10/18 20:00 40 08/10/18 20:00 73 08/10/18 20:00 Mechanical Ventilator 08/10/18 20:00 98.0 78 20 133/78 (96) 100 08/10/18 18:59 79 20 40 08/10/18 17:23 77 20 40 08/10/18 16:00 Mechanical Ventilator 08/10/18 16:00 98.2 73 18 125/83 (97) 99 08/10/18 16:00 75 08/10/18 15:57 40 08/10/18 15:05 81 21 40 08/10/18 13:12 79 18 40 08/10/18 12:00 Mechanical Ventilator 08/10/18 12:00 76 08/10/18 12:00 98.6 78 26 109/61 (77) 100 08/10/18 12:00 40 08/10/18 11:11 81 18 40 08/10/18 09:33 79 18 40 08/10/18 09:00 75 Intake and Output 08/10/18 08/11/18 19:00 07:00 Intake Total 1090 ml 860 ml Output Total 500 ml Balance 590 ml 860 ml Free Water 90 ml Tube Feeding 770 ml 770 ml Blood Product 200 ml Other 120 ml Output Urine Total 500 ml # Voids 1 # Bowel Movements 2 Laboratory Tests 08/11/18 03:05: White Blood Count 12.3H, Red Blood Count 3.87L, Hemoglobin 10.8L, Hematocrit 33.1L, Mean Corpuscular Volume 86, Mean Corpuscular Hemoglobin 27.9, Mean Corpuscular Hemoglobin Concent 32.6, Red Cell Distribution Width 15.9H, Platelet Count 247, Mean Platelet Volume 7.8, Neutrophils (%) (Auto) 71.0, Lymphocytes (%) (Auto) 13.0L, Monocytes (%) (Auto) 10.5H, Eosinophils (%) (Auto ) 4.9H, Basophils (%) (Auto) 0.6, Sodium Level 134L, Potassium Level 4.6, Chloride Level 103, Carbon Dioxide Level 23, Anion Gap 8, Blood Urea Nitrogen 32H, Creatinine 1.3, Estimat Glomerular Filtration Rate 54.7, Glucose Level 121H , Calcium Level 9.3 Height (Feet): 5 Height (Inches): 8.00 Weight (Pounds): 137 General Appearance: lethargic EENT: normal ENT inspection Neck: normal alignment Cardiovascular: normal peripheral pulses, normal rate, regular rhythm Respiratory/Chest: chest wall non-tender, lungs clear, normal breath sounds Abdomen: normal bowel sounds, non tender, soft Extremities: normal inspection Edema: no edema noted Arm (L), no edema noted Arm (R), no edema noted Leg (L), no edema noted Leg (R), no edema noted Pedal (L), no edema noted Pedal (R), no edema noted Generalized Neurologic: motor weakness Skin: normal pigmentation, warm/dry Gato Viveros DO Aug 11, 2018 08:28
--- NOTE | 2018-08-11 09:08 | General Progress Note ---
Assessment/Plan Problem List: (1) Alzheimer's dementia ICD Codes: G30.9 - Alzheimer's disease, unspecified SNOMED: 59836436 (2) Iron deficiency ICD Codes: E61.1 - Iron deficiency SNOMED: 06676025 (3) Upper GI bleed ICD Codes: K92.2 - Upper gastrointestinal hemorrhage SNOMED: 56787737 (4) Severe erosive esophagitis (5) Protein-calorie malnutrition, severe ICD Codes: E43 - Unspecified severe protein-calorie malnutrition SNOMED: 410475812 (6) Anemia ICD Codes: D64.9 - Anemia, unspecified SNOMED: 571799172 Assessment/Plan ppi reflux measures s/p EGD in this ADMISSION FU h&h>>> STABLE Subjective ROS Limited/Unobtainable: No Allergies: Coded Allergies: NO KNOWN DRUG ALLERGIES (Verified Allergy, Unknown, 09/11/16) Objective Last 24 Hour Vital Signs Date Time Temp Pulse Resp B/P (MAP) Pulse Ox O2 Delivery O2 Flow Rate FiO2 08/11/18 09:06 89 23 40 08/11/18 06:54 70 17 40 08/11/18 05:00 82 19 40 08/11/18 04:00 98.6 81 20 120/75 (90) 100 08/11/18 04:00 83 08/11/18 04:00 40 08/11/18 04:00 Mechanical Ventilator 08/11/18 03:21 80 22 40 08/11/18 01:01 74 16 40 08/11/18 00:27 70 18 Mechanical Ventilator 40 08/11/18 00:00 40 08/11/18 00:00 Mechanical Ventilator 08/11/18 00:00 98.5 73 18 121/61 (81) 99 08/11/18 00:00 73 08/10/18 23:09 70 18 40 08/10/18 21:01 80 18 40 08/10/18 20:00 40 08/10/18 20:00 73 08/10/18 20:00 Mechanical Ventilator 08/10/18 20:00 98.0 78 20 133/78 (96) 100 08/10/18 18:59 79 20 40 08/10/18 17:23 77 20 40 08/10/18 16:00 Mechanical Ventilator 08/10/18 16:00 98.2 73 18 125/83 (97) 99 08/10/18 16:00 75 08/10/18 15:57 40 08/10/18 15:05 81 21 40 08/10/18 13:12 79 18 40 08/10/18 12:00 Mechanical Ventilator 08/10/18 12:00 76 08/10/18 12:00 98.6 78 26 109/61 (77) 100 08/10/18 12:00 40 08/10/18 11:11 81 18 40 08/10/18 09:33 79 18 40 Intake and Output 08/10/18 08/11/18 19:00 07:00 Intake Total 1090 ml 860 ml Output Total 500 ml Balance 590 ml 860 ml Free Water 90 ml Tube Feeding 770 ml 770 ml Blood Product 200 ml Other 120 ml Output Urine Total 500 ml # Voids 1 # Bowel Movements 2 Laboratory Tests 08/11/18 03:05: White Blood Count 12.3H, Red Blood Count 3.87L, Hemoglobin 10.8L, Hematocrit 33.1L, Mean Corpuscular Volume 86, Mean Corpuscular Hemoglobin 27.9, Mean Corpuscular Hemoglobin Concent 32.6, Red Cell Distribution Width 15.9H, Platelet Count 247, Mean Platelet Volume 7.8, Neutrophils (%) (Auto) 71.0, Lymphocytes (%) (Auto) 13.0L, Monocytes (%) (Auto) 10.5H, Eosinophils (%) (Auto ) 4.9H, Basophils (%) (Auto) 0.6, Sodium Level 134L, Potassium Level 4.6, Chloride Level 103, Carbon Dioxide Level 23, Anion Gap 8, Blood Urea Nitrogen 32H, Creatinine 1.3, Estimat Glomerular Filtration Rate 54.7, Glucose Level 121H , Calcium Level 9.3 Height (Feet): 5 Height (Inches): 8.00 Weight (Pounds): 137 General Appearance: no apparent distress EENT: normal ENT inspection Neck: supple Cardiovascular: normal rate Respiratory/Chest: decreased breath sounds Abdomen: normal bowel sounds, non tender, soft Extremities: non-tender Vitaliy Wilson MD Aug 11, 2018 09:08
[2018-08-11 12:00] VITALS: BP 107/57
--- NOTE | 2018-08-11 13:27 | General Progress Note ---
Assessment/Plan Status: unchanged Assessment/Plan # Anemia of iron deficiency due to underlying chronic medical issues, multifactorial. --> Cont to monitor and trend cbc --> Anemia w/u has been reviewed. Ferritin at 74 --> No evidence of hemolysis is noted, peripheral smear has been reviewed. --> Hgb goal >7. Transfuse prn. --> Completed IV iron x5 days # Leukocytosis. Was most likely reactive process. --> WBC has elevated again. --> Peripheral has been reviewed, no blasts noted --> Medications have been reviewed --> Imaging has been reviewed. CXR shows Suboptimal positioning. No interval consolidation, overt edema or other acute cardiopulmonary findings. --> Urine culture shows gram negative bacteria --> Completed abx, empiric treatment # Upper GI vomiting bleed. GI is following, appreciate recs. --> Path report shows benign esophageal squamous mucosa --> Protonix as needed # Nonverbal status # Dysphagia. s/p peg # Resp failure. s/p trach/vent GREATLY APPRECIATE CONSULTATION. Subjective Date patient seen: Aug 11, 2018 ROS Limited/Unobtainable: Yes Hematologic/Lymphatic: Reports: anemia Allergies: Coded Allergies: NO KNOWN DRUG ALLERGIES (Verified Allergy, Unknown, 09/11/16) Subjective No acute events. Pt remains on trach and nonverbal. H/H stable. Objective Last 24 Hour Vital Signs Date Time Temp Pulse Resp B/P (MAP) Pulse Ox O2 Delivery O2 Flow Rate FiO2 08/11/18 12:00 40 08/11/18 12:00 88 08/11/18 12:00 98.4 78 16 107/57 (74) 100 08/11/18 12:00 Mechanical Ventilator 08/11/18 10:45 81 21 40 08/11/18 09:06 89 23 40 08/11/18 08:00 40 08/11/18 08:00 98.4 76 20 103/50 (67) 100 08/11/18 08:00 Mechanical Ventilator 08/11/18 08:00 73 08/11/18 06:54 70 17 40 08/11/18 05:00 82 19 40 08/11/18 04:00 98.6 81 20 120/75 (90) 100 08/11/18 04:00 83 08/11/18 04:00 40 08/11/18 04:00 Mechanical Ventilator 08/11/18 03:21 80 22 40 08/11/18 01:01 74 16 40 08/11/18 00:27 70 18 Mechanical Ventilator 40 08/11/18 00:00 40 08/11/18 00:00 Mechanical Ventilator 08/11/18 00:00 98.5 73 18 121/61 (81) 99 08/11/18 00:00 73 08/10/18 23:09 70 18 40 08/10/18 21:01 80 18 40 08/10/18 20:00 40 08/10/18 20:00 73 08/10/18 20:00 Mechanical Ventilator 08/10/18 20:00 98.0 78 20 133/78 (96) 100 08/10/18 18:59 79 20 40 08/10/18 17:23 77 20 40 08/10/18 16:00 Mechanical Ventilator 08/10/18 16:00 98.2 73 18 125/83 (97) 99 08/10/18 16:00 75 08/10/18 15:57 40 08/10/18 15:05 81 21 40 Intake and Output 08/10/18 08/11/18 19:00 07:00 Intake Total 1090 ml 930 ml Output Total 500 ml Balance 590 ml 930 ml Free Water 90 ml Tube Feeding 770 ml 840 ml Blood Product 200 ml Other 120 ml Output Urine Total 500 ml # Voids 1 # Bowel Movements 2 Laboratory Tests 08/11/18 03:05: White Blood Count 12.3H, Red Blood Count 3.87L, Hemoglobin 10.8L, Hematocrit 33.1L, Mean Corpuscular Volume 86, Mean Corpuscular Hemoglobin 27.9, Mean Corpuscular Hemoglobin Concent 32.6, Red Cell Distribution Width 15.9H, Platelet Count 247, Mean Platelet Volume 7.8, Neutrophils (%) (Auto) 71.0, Lymphocytes (%) (Auto) 13.0L, Monocytes (%) (Auto) 10.5H, Eosinophils (%) (Auto ) 4.9H, Basophils (%) (Auto) 0.6, Sodium Level 134L, Potassium Level 4.6, Chloride Level 103, Carbon Dioxide Level 23, Anion Gap 8, Blood Urea Nitrogen 32H, Creatinine 1.3, Estimat Glomerular Filtration Rate 54.7, Glucose Level 121H , Calcium Level 9.3 Height (Feet): 5 Height (Inches): 8.00 Weight (Pounds): 137 Objective PHYSICAL EXAMINATION: VITAL SIGNS: Have been reviewed GENERAL: No acute distress. nonverbal HEENT: Trach site is intact.on vent CHEST: Bibasilar rales CARDIOVASCULAR: Regular rate and rhythm. GASTROINTESTINAL: Positive bowel sounds. G-tube site is intact. EXTREMITIES: + edema. NEUROLOGICAL: The patient does not follow neurological exam. Reflexes equal on both sides. No organomegaly. Nikos Nath MD Aug 11, 2018 13:27
--- NOTE | 2018-08-11 14:47 | Nephrology Progress Note ---
Assessment/Plan Problem List: (1) Tracheostomy dependence (2) Hypokalemia (3) GI bleed (4) Acute renal failure Assessment: cr hayde to 1.4 Assessment GI bleed Anemia low Iron Low K resolved Plan monitor renal parameters- Avoid Nephrotoxics DC IV - GT feeding K supplement Gastric support IV Iron Per GI Subjective ROS Limited/Unobtainable: Yes Objective Objective Last 24 Hour Vital Signs Date Time Temp Pulse Resp B/P (MAP) Pulse Ox O2 Delivery O2 Flow Rate FiO2 08/11/18 14:36 88 17 40 08/11/18 13:20 77 16 40 08/11/18 12:00 40 08/11/18 12:00 88 08/11/18 12:00 98.4 78 16 107/57 (74) 100 08/11/18 12:00 Mechanical Ventilator 08/11/18 10:45 81 21 40 08/11/18 09:06 89 23 40 08/11/18 08:00 40 08/11/18 08:00 98.4 76 20 103/50 (67) 100 08/11/18 08:00 Mechanical Ventilator 08/11/18 08:00 73 08/11/18 06:54 70 17 40 08/11/18 05:00 82 19 40 08/11/18 04:00 98.6 81 20 120/75 (90) 100 08/11/18 04:00 83 08/11/18 04:00 40 08/11/18 04:00 Mechanical Ventilator 08/11/18 03:21 80 22 40 08/11/18 01:01 74 16 40 08/11/18 00:27 70 18 Mechanical Ventilator 40 08/11/18 00:00 40 08/11/18 00:00 Mechanical Ventilator 08/11/18 00:00 98.5 73 18 121/61 (81) 99 08/11/18 00:00 73 08/10/18 23:09 70 18 40 08/10/18 21:01 80 18 40 08/10/18 20:00 40 08/10/18 20:00 73 08/10/18 20:00 Mechanical Ventilator 08/10/18 20:00 98.0 78 20 133/78 (96) 100 08/10/18 18:59 79 20 40 08/10/18 17:23 77 20 40 08/10/18 16:00 Mechanical Ventilator 08/10/18 16:00 98.2 73 18 125/83 (97) 99 08/10/18 16:00 75 08/10/18 15:57 40 08/10/18 15:05 81 21 40 Intake and Output 08/10/18 08/11/18 19:00 07:00 Intake Total 1090 ml 930 ml Output Total 500 ml Balance 590 ml 930 ml Free Water 90 ml Tube Feeding 770 ml 840 ml Blood Product 200 ml Other 120 ml Output Urine Total 500 ml # Voids 1 # Bowel Movements 2 Laboratory Tests 08/11/18 03:05: White Blood Count 12.3H, Red Blood Count 3.87L, Hemoglobin 10.8L, Hematocrit 33.1L, Mean Corpuscular Volume 86, Mean Corpuscular Hemoglobin 27.9, Mean Corpuscular Hemoglobin Concent 32.6, Red Cell Distribution Width 15.9H, Platelet Count 247, Mean Platelet Volume 7.8, Neutrophils (%) (Auto) 71.0, Lymphocytes (%) (Auto) 13.0L, Monocytes (%) (Auto) 10.5H, Eosinophils (%) (Auto ) 4.9H, Basophils (%) (Auto) 0.6, Sodium Level 134L, Potassium Level 4.6, Chloride Level 103, Carbon Dioxide Level 23, Anion Gap 8, Blood Urea Nitrogen 32H, Creatinine 1.3, Estimat Glomerular Filtration Rate 54.7, Glucose Level 121H , Calcium Level 9.3 Height (Feet): 5 Height (Inches): 8.00 Weight (Pounds): 137 General Appearance: no apparent distress Objective no change Sav Salvador MD Aug 11, 2018 14:47
[2018-08-11 16:00] VITALS: BP 120/59
[2018-08-11 20:00] VITALS: BP 108/60
[2018-08-11] MEDS: Dyna-Hex 2% Top Sol 2oz TOPIC SCH (20:26)
[2018-08-12] VITALS: BP 101/61
[2018-08-12 04:00] VITALS: BP 108/65
[2018-08-12 05:29] LABS: BASOPHILS % (AUTO) 0.6 % (0.0-2.0); EOSINOPHILS % (AUTO) 4.6 % (0.0-3.0); HEMATOCRIT 30.7 % (42.0-52.0); LYMPHOCYTES % (AUTO) 13.2 % (20.0-45.0); MEAN CORPUSCULAR VOLUME 84 FL (80-99); MONOCYTES % (AUTO) 10.6 % (1.0-10.0); PLATELET COUNT 257 K/UL (150-450); RED BLOOD COUNT 3.64 M/UL (4.70-6.10); RED CELL DISTRIBUTION WIDTH 15.1 % (11.6-14.8); WHITE BLOOD COUNT 11.6 K/UL (4.8-10.8)
[2018-08-12 05:55] LABS: ANION GAP 10 mmol/L (5-15); BLOOD UREA NITROGEN 34 mg/dL (7-18); CARBON DIOXIDE 22 MMOL/L (21-32); CHLORIDE 102 MMOL/L (98-107); CREATININE 1.3 MG/DL (0.55-1.30); POTASSIUM 4.5 MMOL/L (3.5-5.1); SODIUM 134 MMOL/L (136-145)
[2018-08-12 08:00] VITALS: BP 111/56
--- NOTE | 2018-08-12 10:17 | Nephrology Progress Note ---
Assessment/Plan Problem List: (1) Tracheostomy dependence (2) Hypokalemia (3) GI bleed (4) Acute renal failure Assessment: cr hayde to 1.4 Assessment GI bleed Anemia low Iron Low K resolved Plan monitor renal parameters- Avoid Nephrotoxics DC IV - GT feeding K supplement Gastric support IV Iron Per GI Subjective ROS Limited/Unobtainable: Yes Objective Objective Last 24 Hour Vital Signs Date Time Temp Pulse Resp B/P (MAP) Pulse Ox O2 Delivery O2 Flow Rate FiO2 08/12/18 08:58 75 19 40 08/12/18 06:54 69 16 40 08/12/18 05:40 69 16 40 08/12/18 04:00 73 08/12/18 04:00 Mechanical Ventilator 08/12/18 04:00 98.4 65 17 108/65 (79) 96 08/12/18 04:00 40 08/12/18 03:10 60 18 40 08/12/18 01:23 73 19 40 08/12/18 00:00 40 08/12/18 00:00 98.3 70 16 101/61 (74) 100 08/12/18 00:00 Mechanical Ventilator 08/12/18 00:00 67 08/11/18 23:36 71 16 40 08/11/18 21:14 78 20 40 08/11/18 20:00 84 08/11/18 20:00 40 08/11/18 20:00 98.4 78 16 108/60 (76) 100 08/11/18 20:00 Mechanical Ventilator 08/11/18 18:53 75 16 40 08/11/18 16:49 71 19 40 08/11/18 16:00 40 08/11/18 16:00 80 08/11/18 16:00 98.2 83 20 120/59 (79) 100 08/11/18 16:00 Mechanical Ventilator 08/11/18 14:36 88 17 40 08/11/18 13:20 77 16 40 08/11/18 12:00 40 08/11/18 12:00 88 08/11/18 12:00 98.4 78 16 107/57 (74) 100 08/11/18 12:00 Mechanical Ventilator 08/11/18 10:45 81 21 40 Intake and Output 08/11/18 08/12/18 19:00 07:00 Intake Total 1160 ml 890 ml Output Total 400 ml 550 ml Balance 760 ml 340 ml Free Water 200 ml 50 ml Tube Feeding 840 ml 840 ml Other 120 ml Output Urine Total 400 ml 550 ml # Voids 1 # Bowel Movements 1 Laboratory Tests 08/12/18 03:15: White Blood Count 11.6H, Red Blood Count 3.64L, Hemoglobin 10.0L, Hematocrit 30.7L, Mean Corpuscular Volume 84, Mean Corpuscular Hemoglobin 27.6, Mean Corpuscular Hemoglobin Concent 32.6, Red Cell Distribution Width 15.1H, Platelet Count 257, Mean Platelet Volume 7.8, Neutrophils (%) (Auto) 71.0, Lymphocytes (%) (Auto) 13.2L, Monocytes (%) (Auto) 10.6H, Eosinophils (%) (Auto ) 4.6H, Basophils (%) (Auto) 0.6, Sodium Level 134L, Potassium Level 4.5, Chloride Level 102, Carbon Dioxide Level 22, Anion Gap 10, Blood Urea Nitrogen 34H, Creatinine 1.3, Estimat Glomerular Filtration Rate 54.6, Glucose Level 115H , Calcium Level 9.0 Height (Feet): 5 Height (Inches): 8.00 Weight (Pounds): 137 General Appearance: no apparent distress Cardiovascular: normal rate Respiratory/Chest: decreased breath sounds Abdomen: soft Objective no change Sav Salvador MD Aug 12, 2018 10:17
[2018-08-12 10:37] LABS: ALANINE AMINOTRANSFERASE 40 U/L (12-78); ALBUMIN 2.8 G/DL (3.4-5.0); ALKALINE PHOSPHATASE 132 U/L (46-116); ASPARTATE AMINO TRANSFERASE 23 U/L (15-37); BILIRUBIN,DIRECT < 0.1 MG/DL (0.0-0.3); BILIRUBIN,TOTAL 0.2 MG/DL (0.2-1.0); PHOSPHORUS 3.8 MG/DL (2.5-4.9)
--- NOTE | 2018-08-12 10:44 | GI Progress Note ---
Assessment/Plan Problems: (1) Iron deficiency ICD Codes: E61.1 - Iron deficiency SNOMED: 85753219 (2) Upper GI bleed ICD Codes: K92.2 - Upper gastrointestinal hemorrhage SNOMED: 49471309 (3) Severe erosive esophagitis (4) Malfunction of gastrostomy tube ICD Codes: K94.23 - Gastrostomy malfunction SNOMED: 407674952 (5) Protein-calorie malnutrition, severe ICD Codes: E43 - Unspecified severe protein-calorie malnutrition SNOMED: 248688698 (6) Esophagitis ICD Codes: K20.9 - Esophagitis SNOMED: 06500257 (7) Feeding by G-tube ICD Codes: Z93.1 - Gastrostomy status SNOMED: 305535357, 341602930 (8) Severe protein-calorie malnutrition ICD Codes: E43 - Unspecified severe protein-calorie malnutrition SNOMED: 504605184 Status: stable Status Narrative Discussed with Dr. Wilson. Assessment/Plan Assessment - Dark stools/ Anemia - severe GERD with stricture - OBS - Resp failure, trach - s/p GT - Contractures Recommendations - IVF - PPI - Follow H&H - Resume TF - fu labs - dc planning Subjective Subjective limited Objective Last 24 Hour Vital Signs Date Time Temp Pulse Resp B/P (MAP) Pulse Ox O2 Delivery O2 Flow Rate FiO2 08/12/18 08:58 75 19 40 08/12/18 06:54 69 16 40 08/12/18 05:40 69 16 40 08/12/18 04:00 73 08/12/18 04:00 Mechanical Ventilator 08/12/18 04:00 98.4 65 17 108/65 (79) 96 08/12/18 04:00 40 08/12/18 03:10 60 18 40 08/12/18 01:23 73 19 40 08/12/18 00:00 40 08/12/18 00:00 98.3 70 16 101/61 (74) 100 08/12/18 00:00 Mechanical Ventilator 08/12/18 00:00 67 08/11/18 23:36 71 16 40 08/11/18 21:14 78 20 40 08/11/18 20:00 84 08/11/18 20:00 40 08/11/18 20:00 98.4 78 16 108/60 (76) 100 08/11/18 20:00 Mechanical Ventilator 08/11/18 18:53 75 16 40 08/11/18 16:49 71 19 40 08/11/18 16:00 40 08/11/18 16:00 80 08/11/18 16:00 98.2 83 20 120/59 (79) 100 08/11/18 16:00 Mechanical Ventilator 08/11/18 14:36 88 17 40 08/11/18 13:20 77 16 40 08/11/18 12:00 40 08/11/18 12:00 88 08/11/18 12:00 98.4 78 16 107/57 (74) 100 08/11/18 12:00 Mechanical Ventilator 08/11/18 10:45 81 21 40 Intake and Output 08/11/18 08/12/18 19:00 07:00 Intake Total 1160 ml 890 ml Output Total 400 ml 550 ml Balance 760 ml 340 ml Free Water 200 ml 50 ml Tube Feeding 840 ml 840 ml Other 120 ml Output Urine Total 400 ml 550 ml # Voids 1 # Bowel Movements 1 Laboratory Tests Test 08/12/18 03:15 White Blood Count 11.6 K/UL (4.8-10.8) H Red Blood Count 3.64 M/UL (4.70-6.10) L Hemoglobin 10.0 G/DL (14.2-18.0) L Hematocrit 30.7 % (42.0-52.0) L Mean Corpuscular Volume 84 FL (80-99) Mean Corpuscular Hemoglobin 27.6 PG (27.0-31.0) Mean Corpuscular Hemoglobin Concent 32.6 G/DL (32.0-36.0) Red Cell Distribution Width 15.1 % (11.6-14.8) H Platelet Count 257 K/UL (150-450) Mean Platelet Volume 7.8 FL (6.5-10.1) Neutrophils (%) (Auto) 71.0 % (45.0-75.0) Lymphocytes (%) (Auto) 13.2 % (20.0-45.0) L Monocytes (%) (Auto) 10.6 % (1.0-10.0) H Eosinophils (%) (Auto) 4.6 % (0.0-3.0) H Basophils (%) (Auto) 0.6 % (0.0-2.0) Sodium Level 134 MMOL/L (136-145) L Potassium Level 4.5 MMOL/L (3.5-5.1) Chloride Level 102 MMOL/L (98-107) Carbon Dioxide Level 22 MMOL/L (21-32) Anion Gap 10 mmol/L (5-15) Blood Urea Nitrogen 34 mg/dL (7-18) H Creatinine 1.3 MG/DL (0.55-1.30) Estimat Glomerular Filtration Rate 54.6 mL/min (>60) Glucose Level 115 MG/DL (74-106) H Uric Acid 3.6 MG/DL (2.6-7.2) Calcium Level 9.0 MG/DL (8.5-10.1) Phosphorus Level 3.8 MG/DL (2.5-4.9) Magnesium Level 1.8 MG/DL (1.8-2.4) Total Bilirubin 0.2 MG/DL (0.2-1.0) Direct Bilirubin < 0.1 MG/DL (0.0-0.3) Aspartate Amino Transf (AST/SGOT) 23 U/L (15-37) Alanine Aminotransferase (ALT/SGPT) 40 U/L (12-78) Alkaline Phosphatase 132 U/L (46-116) H Total Protein 7.6 G/DL (6.4-8.2) Albumin 2.8 G/DL (3.4-5.0) L Height (Feet): 5 Height (Inches): 8.00 Weight (Pounds): 137 General Appearance: WD/WN, no apparent distress, alert Cardiovascular: normal rate Respiratory/Chest: normal breath sounds, no respiratory distress, other - mech vent Abdominal Exam: normal bowel sounds, non tender, soft, GT site - c/d/i Extremities: non-tender Emanuel Quesada NP Aug 12, 2018 10:44
--- NOTE | 2018-08-12 11:24 | Diagnostic Imaging Report ---
Indication: Shortness of breath Technique: One view of the chest Comparison: 08/05/2018 Findings: Previously demonstrated interstitial congestive changes and left pleural effusion are no longer evident. Lungs and pleural spaces currently clear. Heart size is normal. Tracheostomy, right arm PICC remain Impression: No acute process
[2018-08-12 12:00] VITALS: BP 133/84
--- NOTE | 2018-08-12 12:26 | General Progress Note ---
Assessment/Plan Problem List: (1) Alzheimer's dementia ICD Codes: G30.9 - Alzheimer's disease, unspecified SNOMED: 18397586 (2) Psychosis ICD Codes: F29 - Psychosis SNOMED: 12615199 Status: stable Assessment/Plan seroquel prn lacks [place] he has a dpoa Subjective Allergies: Coded Allergies: NO KNOWN DRUG ALLERGIES (Verified Allergy, Unknown, 09/11/16) Subjective the pt is the same. the pt has waxing and waning of consciousness lethargic Objective Last 24 Hour Vital Signs Date Time Temp Pulse Resp B/P (MAP) Pulse Ox O2 Delivery O2 Flow Rate FiO2 08/12/18 12:12 Mechanical Ventilator 08/12/18 12:00 40 08/12/18 11:03 72 17 40 08/12/18 08:58 75 19 40 08/12/18 08:00 75 16 111/56 (74) 96 08/12/18 08:00 Mechanical Ventilator 08/12/18 08:00 40 08/12/18 08:00 70 08/12/18 06:54 69 16 40 08/12/18 05:40 69 16 40 08/12/18 04:00 73 08/12/18 04:00 Mechanical Ventilator 08/12/18 04:00 98.4 65 17 108/65 (79) 96 08/12/18 04:00 40 08/12/18 03:10 60 18 40 08/12/18 01:23 73 19 40 08/12/18 00:00 40 08/12/18 00:00 98.3 70 16 101/61 (74) 100 08/12/18 00:00 Mechanical Ventilator 08/12/18 00:00 67 08/11/18 23:36 71 16 40 08/11/18 21:14 78 20 40 08/11/18 20:00 84 08/11/18 20:00 40 08/11/18 20:00 98.4 78 16 108/60 (76) 100 08/11/18 20:00 Mechanical Ventilator 08/11/18 18:53 75 16 40 08/11/18 16:49 71 19 40 08/11/18 16:00 40 08/11/18 16:00 80 08/11/18 16:00 98.2 83 20 120/59 (79) 100 08/11/18 16:00 Mechanical Ventilator 08/11/18 14:36 88 17 40 08/11/18 13:20 77 16 40 Intake and Output 08/11/18 08/12/18 19:00 07:00 Intake Total 1160 ml 890 ml Output Total 400 ml 550 ml Balance 760 ml 340 ml Free Water 200 ml 50 ml Tube Feeding 840 ml 840 ml Other 120 ml Output Urine Total 400 ml 550 ml # Voids 1 # Bowel Movements 1 Laboratory Tests 08/12/18 03:15: White Blood Count 11.6H, Red Blood Count 3.64L, Hemoglobin 10.0L, Hematocrit 30.7L, Mean Corpuscular Volume 84, Mean Corpuscular Hemoglobin 27.6, Mean Corpuscular Hemoglobin Concent 32.6, Red Cell Distribution Width 15.1H, Platelet Count 257, Mean Platelet Volume 7.8, Neutrophils (%) (Auto) 71.0, Lymphocytes (%) (Auto) 13.2L, Monocytes (%) (Auto) 10.6H, Eosinophils (%) (Auto ) 4.6H, Basophils (%) (Auto) 0.6, Sodium Level 134L, Potassium Level 4.5, Chloride Level 102, Carbon Dioxide Level 22, Anion Gap 10, Blood Urea Nitrogen 34H, Creatinine 1.3, Estimat Glomerular Filtration Rate 54.6, Glucose Level 115H , Uric Acid 3.6, Calcium Level 9.0, Phosphorus Level 3.8, Magnesium Level 1.8, Total Bilirubin 0.2, Direct Bilirubin < 0.1, Aspartate Amino Transf (AST/SGOT) 23, Alanine Aminotransferase (ALT/SGPT) 40, Alkaline Phosphatase 132H, Total Protein 7.6, Albumin 2.8L Height (Feet): 5 Height (Inches): 8.00 Weight (Pounds): 137 General Appearance: no apparent distress, lethargic, confused Toma Ramirez MD Aug 12, 2018 12:26
--- NOTE | 2018-08-12 13:10 | General Progress Note ---
Assessment/Plan Status: stable, unchanged Assessment/Plan # Anemia of iron deficiency due to underlying chronic medical issues, multifactorial. --> Cont to monitor and trend cbc --> Anemia w/u has been reviewed. Ferritin at 74 --> No evidence of hemolysis is noted, peripheral smear has been reviewed. --> Hgb goal >7. Transfuse prn. --> Restarted on IV iron x3 days # Leukocytosis. Was most likely reactive process. --> WBC has elevated again. --> Peripheral has been reviewed, no blasts noted --> Medications have been reviewed --> Imaging has been reviewed. CXR shows Suboptimal positioning. No interval consolidation, overt edema or other acute cardiopulmonary findings. --> Urine culture shows gram negative bacteria --> Completed abx, empiric treatment # Upper GI vomiting bleed. GI is following, appreciate recs. --> Path report shows benign esophageal squamous mucosa --> Protonix as needed # Nonverbal status # Dysphagia. s/p peg # Resp failure. s/p trach/vent GREATLY APPRECIATE CONSULTATION. Subjective Date patient seen: Aug 12, 2018 ROS Limited/Unobtainable: Yes Hematologic/Lymphatic: Reports: anemia Allergies: Coded Allergies: NO KNOWN DRUG ALLERGIES (Verified Allergy, Unknown, 09/11/16) Subjective No acute events. Pt remains on trach and nonverbal. Restarted on IV iron x3 days Objective Last 24 Hour Vital Signs Date Time Temp Pulse Resp B/P (MAP) Pulse Ox O2 Delivery O2 Flow Rate FiO2 08/12/18 12:12 Mechanical Ventilator 08/12/18 12:00 40 08/12/18 12:00 97.1 79 18 133/84 (100) 99 08/12/18 11:03 72 17 40 08/12/18 08:58 75 19 40 08/12/18 08:00 75 16 111/56 (74) 96 08/12/18 08:00 Mechanical Ventilator 08/12/18 08:00 40 08/12/18 08:00 70 08/12/18 06:54 69 16 40 08/12/18 05:40 69 16 40 08/12/18 04:00 73 08/12/18 04:00 Mechanical Ventilator 08/12/18 04:00 98.4 65 17 108/65 (79) 96 08/12/18 04:00 40 08/12/18 03:10 60 18 40 12/3/18 01:23 73 19 40 08/12/18 00:00 40 08/12/18 00:00 98.3 70 16 101/61 (74) 100 08/12/18 00:00 Mechanical Ventilator 08/12/18 00:00 67 08/11/18 23:36 71 16 40 08/11/18 21:14 78 20 40 08/11/18 20:00 84 08/11/18 20:00 40 08/11/18 20:00 98.4 78 16 108/60 (76) 100 08/11/18 20:00 Mechanical Ventilator 08/11/18 18:53 75 16 40 08/11/18 16:49 71 19 40 08/11/18 16:00 40 08/11/18 16:00 80 08/11/18 16:00 98.2 83 20 120/59 (79) 100 08/11/18 16:00 Mechanical Ventilator 08/11/18 14:36 88 17 40 08/11/18 13:20 77 16 40 Intake and Output 08/11/18 08/12/18 19:00 07:00 Intake Total 1160 ml 890 ml Output Total 400 ml 550 ml Balance 760 ml 340 ml Free Water 200 ml 50 ml Tube Feeding 840 ml 840 ml Other 120 ml Output Urine Total 400 ml 550 ml # Voids 1 # Bowel Movements 1 Laboratory Tests 08/12/18 03:15: White Blood Count 11.6H, Red Blood Count 3.64L, Hemoglobin 10.0L, Hematocrit 30.7L, Mean Corpuscular Volume 84, Mean Corpuscular Hemoglobin 27.6, Mean Corpuscular Hemoglobin Concent 32.6, Red Cell Distribution Width 15.1H, Platelet Count 257, Mean Platelet Volume 7.8, Neutrophils (%) (Auto) 71.0, Lymphocytes (%) (Auto) 13.2L, Monocytes (%) (Auto) 10.6H, Eosinophils (%) (Auto ) 4.6H, Basophils (%) (Auto) 0.6, Sodium Level 134L, Potassium Level 4.5, Chloride Level 102, Carbon Dioxide Level 22, Anion Gap 10, Blood Urea Nitrogen 34H, Creatinine 1.3, Estimat Glomerular Filtration Rate 54.6, Glucose Level 115H , Uric Acid 3.6, Calcium Level 9.0, Phosphorus Level 3.8, Magnesium Level 1.8, Total Bilirubin 0.2, Direct Bilirubin < 0.1, Aspartate Amino Transf (AST/SGOT) 23, Alanine Aminotransferase (ALT/SGPT) 40, Alkaline Phosphatase 132H, Total Protein 7.6, Albumin 2.8L Height (Feet): 5 Height (Inches): 8.00 Weight (Pounds): 137 Objective PHYSICAL EXAMINATION: VITAL SIGNS: Have been reviewed GENERAL: No acute distress. nonverbal HEENT: Trach site is intact.on vent CHEST: Bibasilar rales CARDIOVASCULAR: Regular rate and rhythm. GASTROINTESTINAL: Positive bowel sounds. G-tube site is intact. EXTREMITIES: + edema. NEUROLOGICAL: The patient does not follow neurological exam. Reflexes equal on both sides. No organomegaly. Nikos Nath MD Aug 12, 2018 13:10
--- NOTE | 2018-08-12 13:13 | Pulmonology Progress Note ---
Assessment/Plan Problems: (1) Upper GI bleed (2) Anemia (3) Chronic respiratory failure (4) Sepsis (5) Alzheimer's dementia (6) Severe protein-calorie malnutrition (7) Feeding by G-tube Assessment/Plan tolerating feeding still lots of secretions check cultures wbc decreasing ID evaluation appreciated H2 blockers symptomatic treatment dvt prophylaxis Subjective ROS Limited/Unobtainable: No Constitutional: Reports: no symptoms HEENT: Repors: no symptoms Respiratory: Reports: no symptoms Allergies: Coded Allergies: NO KNOWN DRUG ALLERGIES (Verified Allergy, Unknown, 09/11/16) Objective Last 24 Hour Vital Signs Date Time Temp Pulse Resp B/P (MAP) Pulse Ox O2 Delivery O2 Flow Rate FiO2 08/12/18 12:12 Mechanical Ventilator 08/12/18 12:00 40 08/12/18 12:00 97.1 79 18 133/84 (100) 99 08/12/18 11:03 72 17 40 08/12/18 08:58 75 19 40 08/12/18 08:00 75 16 111/56 (74) 96 08/12/18 08:00 Mechanical Ventilator 08/12/18 08:00 40 08/12/18 08:00 70 08/12/18 06:54 69 16 40 08/12/18 05:40 69 16 40 08/12/18 04:00 73 08/12/18 04:00 Mechanical Ventilator 08/12/18 04:00 98.4 65 17 108/65 (79) 96 08/12/18 04:00 40 08/12/18 03:10 60 18 40 08/12/18 01:23 73 19 40 08/12/18 00:00 40 08/12/18 00:00 98.3 70 16 101/61 (74) 100 08/12/18 00:00 Mechanical Ventilator 08/12/18 00:00 67 08/11/18 23:36 71 16 40 08/11/18 21:14 78 20 40 08/11/18 20:00 84 08/11/18 20:00 40 08/11/18 20:00 98.4 78 16 108/60 (76) 100 08/11/18 20:00 Mechanical Ventilator 08/11/18 18:53 75 16 40 08/11/18 16:49 71 19 40 08/11/18 16:00 40 08/11/18 16:00 80 08/11/18 16:00 98.2 83 20 120/59 (79) 100 08/11/18 16:00 Mechanical Ventilator 08/11/18 14:36 88 17 40 08/11/18 13:20 77 16 40 Intake and Output 08/11/18 08/12/18 19:00 07:00 Intake Total 1160 ml 890 ml Output Total 400 ml 550 ml Balance 760 ml 340 ml Free Water 200 ml 50 ml Tube Feeding 840 ml 840 ml Other 120 ml Output Urine Total 400 ml 550 ml # Voids 1 # Bowel Movements 1 General Appearance: WD/WN, no acute distress HEENT: normocephalic, atraumatic Respiratory/Chest: chest wall non-tender, lungs clear Cardiovascular: normal peripheral pulses, normal rate Abdomen: normal bowel sounds, soft, non tender Genitourinary: normal external genitalia Skin: no rash Laboratory Tests 08/12/18 03:15: White Blood Count 11.6H, Red Blood Count 3.64L, Hemoglobin 10.0L, Hematocrit 30.7L, Mean Corpuscular Volume 84, Mean Corpuscular Hemoglobin 27.6, Mean Corpuscular Hemoglobin Concent 32.6, Red Cell Distribution Width 15.1H, Platelet Count 257, Mean Platelet Volume 7.8, Neutrophils (%) (Auto) 71.0, Lymphocytes (%) (Auto) 13.2L, Monocytes (%) (Auto) 10.6H, Eosinophils (%) (Auto ) 4.6H, Basophils (%) (Auto) 0.6, Sodium Level 134L, Potassium Level 4.5, Chloride Level 102, Carbon Dioxide Level 22, Anion Gap 10, Blood Urea Nitrogen 34H, Creatinine 1.3, Estimat Glomerular Filtration Rate 54.6, Glucose Level 115H , Uric Acid 3.6, Calcium Level 9.0, Phosphorus Level 3.8, Magnesium Level 1.8, Total Bilirubin 0.2, Direct Bilirubin < 0.1, Aspartate Amino Transf (AST/SGOT) 23, Alanine Aminotransferase (ALT/SGPT) 40, Alkaline Phosphatase 132H, Total Protein 7.6, Albumin 2.8L Current Medications Medications (Trade) Dose Ordered Sig/Wanda Route PRN Reason Start Time Stop Time Status Last Admin Dose Admin Acetaminophen (Tylenol) 650 mg Q4H PRN GT Mild Pain/Temp > 100.5 08/01/18 02:00 08/31/18 01:59 08/04/18 17:48 Albuterol/ Ipratropium (Albuterol/ Ipratropium) 3 ml Q4H PRN HHN Shortness of Breath 08/10/18 11:56 08/15/18 11:55 Chlorhexidine Gluconate (Jasmin-Hex 2%) 1 applic DAILY@2000 TOPIC 08/02/18 20:00 09/01/18 19:59 08/11/18 20:26 Iron Sucrose 100 mg/Sodium Chloride 60 ml @ 240 mls/hr BEDTIME IV 08/12/18 21:00 08/14/18 21:14 Lansoprazole (Prevacid) 30 mg BID GT 08/03/18 18:00 09/02/18 17:59 08/12/18 10:25 Levothyroxine Sodium (Synthroid) 25 mcg DAILY IV 08/04/18 09:00 09/03/18 08:59 08/12/18 10:24 Ondansetron HCl (Zofran) 4 mg Q6H PRN IVP Nausea & Vomiting 08/03/18 20:29 09/02/18 20:28 08/04/18 06:30 Huma Keating MD Aug 12, 2018 13:13
--- NOTE | 2018-08-12 13:40 | General Progress Note ---
Assessment/Plan Problem List: (1) GI bleed ICD Codes: K92.2 - Gastrointestinal hemorrhage, unspecified SNOMED: 08553751 (2) Respiratory failure, jzmdo-vb-nlgyrde ICD Codes: J96.20 - Respiratory failure, qykdo-tm-mvomfuw SNOMED: 99272773 (3) Anemia ICD Codes: D64.9 - Anemia, unspecified SNOMED: 134939708 (4) Hypothyroidism ICD Codes: E03.9 - Hypothyroidism, unspecified SNOMED: 32392645 Status: stable, progressing Assessment/Plan vent abx prn cbc bmp am dc planning snf Subjective Constitutional: Reports: weakness Allergies: Coded Allergies: NO KNOWN DRUG ALLERGIES (Verified Allergy, Unknown, 09/11/16) All Systems: reviewed and negative except above Subjective trach vent altered calm Objective Last 24 Hour Vital Signs Date Time Temp Pulse Resp B/P (MAP) Pulse Ox O2 Delivery O2 Flow Rate FiO2 08/12/18 12:12 Mechanical Ventilator 08/12/18 12:00 40 08/12/18 12:00 97.1 79 18 133/84 (100) 99 08/12/18 11:03 72 17 40 08/12/18 08:58 75 19 40 08/12/18 08:00 75 16 111/56 (74) 96 08/12/18 08:00 Mechanical Ventilator 08/12/18 08:00 40 08/12/18 08:00 70 08/12/18 06:54 69 16 40 08/12/18 05:40 69 16 40 08/12/18 04:00 73 08/12/18 04:00 Mechanical Ventilator 08/12/18 04:00 98.4 65 17 108/65 (79) 96 08/12/18 04:00 40 08/12/18 03:10 60 18 40 08/12/18 01:23 73 19 40 08/12/18 00:00 40 08/12/18 00:00 98.3 70 16 101/61 (74) 100 08/12/18 00:00 Mechanical Ventilator 08/12/18 00:00 67 08/11/18 23:36 71 16 40 08/11/18 21:14 78 20 40 08/11/18 20:00 84 08/11/18 20:00 40 08/11/18 20:00 98.4 78 16 108/60 (76) 100 08/11/18 20:00 Mechanical Ventilator 08/11/18 18:53 75 16 40 08/11/18 16:49 71 19 40 08/11/18 16:00 40 08/11/18 16:00 80 08/11/18 16:00 98.2 83 20 120/59 (79) 100 08/11/18 16:00 Mechanical Ventilator 08/11/18 14:36 88 17 40 Intake and Output 08/11/18 08/12/18 19:00 07:00 Intake Total 1160 ml 890 ml Output Total 400 ml 550 ml Balance 760 ml 340 ml Free Water 200 ml 50 ml Tube Feeding 840 ml 840 ml Other 120 ml Output Urine Total 400 ml 550 ml # Voids 1 # Bowel Movements 1 Laboratory Tests 08/12/18 03:15: White Blood Count 11.6H, Red Blood Count 3.64L, Hemoglobin 10.0L, Hematocrit 30.7L, Mean Corpuscular Volume 84, Mean Corpuscular Hemoglobin 27.6, Mean Corpuscular Hemoglobin Concent 32.6, Red Cell Distribution Width 15.1H, Platelet Count 257, Mean Platelet Volume 7.8, Neutrophils (%) (Auto) 71.0, Lymphocytes (%) (Auto) 13.2L, Monocytes (%) (Auto) 10.6H, Eosinophils (%) (Auto ) 4.6H, Basophils (%) (Auto) 0.6, Sodium Level 134L, Potassium Level 4.5, Chloride Level 102, Carbon Dioxide Level 22, Anion Gap 10, Blood Urea Nitrogen 34H, Creatinine 1.3, Estimat Glomerular Filtration Rate 54.6, Glucose Level 115H , Uric Acid 3.6, Calcium Level 9.0, Phosphorus Level 3.8, Magnesium Level 1.8, Total Bilirubin 0.2, Direct Bilirubin < 0.1, Aspartate Amino Transf (AST/SGOT) 23, Alanine Aminotransferase (ALT/SGPT) 40, Alkaline Phosphatase 132H, Total Protein 7.6, Albumin 2.8L Height (Feet): 5 Height (Inches): 8.00 Weight (Pounds): 137 General Appearance: lethargic EENT: normal ENT inspection Neck: normal alignment Cardiovascular: normal peripheral pulses, normal rate, regular rhythm Respiratory/Chest: chest wall non-tender, decreased breath sounds Abdomen: normal bowel sounds, non tender, soft Extremities: normal inspection Edema: no edema noted Arm (L), no edema noted Arm (R), no edema noted Leg (L), no edema noted Leg (R), no edema noted Pedal (L), no edema noted Pedal (R), no edema noted Generalized Neurologic: motor weakness Skin: normal pigmentation, warm/dry Gato Viveros DO Aug 12, 2018 13:40
--- NOTE | 2018-08-12 14:20 | Infectious Diseases Prog Note ---
Assessment/Plan Assessment/Plan Assessment 67 yo male who is vent dependent and was brought to the ED on 07/31/18 with GIB and increased sputum. UTI , S/p Rx UA positive 08/01/18 UCxESBL Proteus Sen to erta, zosyn and bactrim; 08/02/18 UCx ESBL P.mirabilis Increase oral secretions -CXR 08/12: No acute process -CXR 08/05: Increased bilateral interstitial edema over one day.Suspect developing left pleural effusion No evidence for PNA on CXR -sp cx ESBL P.mirabils (S Bactrim), S. maltophilia (S Bactrim) Leukocytosis , recurrent, improving off abx Afebrile Hx Constipation Chronic respiratory failure, Hypothyroidism GERD Hypertension Hx C. diff Dysphagia, Esophagitis GI bleed Anemia. Trached vent depeendent PEG Plan - Continue to monitor off abx -08/09 SP Bactrim #7 -08/03 SP Vancomycin and Cefepime #3 -08/01 SP Ceftriaxone x1 - Monitor CBC and temps -Trach/oral care -Aspiration precautions -CBC am Thank you for this consult. We will continue to follow the patient during this hospitalization. Subjective Allergies: Coded Allergies: NO KNOWN DRUG ALLERGIES (Verified Allergy, Unknown, 09/11/16) Subjective afebrile mild leukocytosis, improving Fio2 40% Objective Vital Signs Last 24 Hour Vital Signs Date Time Temp Pulse Resp B/P (MAP) Pulse Ox O2 Delivery O2 Flow Rate FiO2 08/12/18 13:25 70 16 40 08/12/18 12:12 Mechanical Ventilator 08/12/18 12:00 40 08/12/18 12:00 97.1 79 18 133/84 (100) 99 08/12/18 11:03 72 17 40 08/12/18 08:58 75 19 40 08/12/18 08:00 75 16 111/56 (74) 96 08/12/18 08:00 Mechanical Ventilator 08/12/18 08:00 40 08/12/18 08:00 70 08/12/18 06:54 69 16 40 08/12/18 05:40 69 16 40 08/12/18 04:00 73 08/12/18 04:00 Mechanical Ventilator 08/12/18 04:00 98.4 65 17 108/65 (79) 96 08/12/18 04:00 40 08/12/18 03:10 60 18 40 08/12/18 01:23 73 19 40 08/12/18 00:00 40 08/12/18 00:00 98.3 70 16 101/61 (74) 100 08/12/18 00:00 Mechanical Ventilator 08/12/18 00:00 67 08/11/18 23:36 71 16 40 08/11/18 21:14 78 20 40 08/11/18 20:00 84 08/11/18 20:00 40 08/11/18 20:00 98.4 78 16 108/60 (76) 100 08/11/18 20:00 Mechanical Ventilator 08/11/18 18:53 75 16 40 08/11/18 16:49 71 19 40 08/11/18 16:00 40 08/11/18 16:00 80 08/11/18 16:00 98.2 83 20 120/59 (79) 100 08/11/18 16:00 Mechanical Ventilator 08/11/18 14:36 88 17 40 Height (Feet): 5 Height (Inches): 8.00 Weight (Pounds): 137 Objective Gen: NAD. Trached HEENT: NCAT, MMM, eyes open not following No Oral lesion, no scleral icterus NECK: full range of motion, supple, no meningismus, No LAD, No JVD LUNGS: CTAB, No W/C, No Accessory muscle use CARDS: RRR, S1, S2, No M/R/G, ABD: Soft, NT, ND, No R/G, + BS, No HSM, No Masses, PEG (No E/P) : Deferred Ext: C/C/E, Pulses 2+ B/L (DP, Rad): NEURO: A/O x 0, Strength and Sensation Grossly intact PSYCH: mood/affect normal SKIN: Warm not rashes Laboratory Tests Test 08/12/18 03:15 White Blood Count 11.6 K/UL (4.8-10.8) H Red Blood Count 3.64 M/UL (4.70-6.10) L Hemoglobin 10.0 G/DL (14.2-18.0) L Hematocrit 30.7 % (42.0-52.0) L Mean Corpuscular Volume 84 FL (80-99) Mean Corpuscular Hemoglobin 27.6 PG (27.0-31.0) Mean Corpuscular Hemoglobin Concent 32.6 G/DL (32.0-36.0) Red Cell Distribution Width 15.1 % (11.6-14.8) H Platelet Count 257 K/UL (150-450) Mean Platelet Volume 7.8 FL (6.5-10.1) Neutrophils (%) (Auto) 71.0 % (45.0-75.0) Lymphocytes (%) (Auto) 13.2 % (20.0-45.0) L Monocytes (%) (Auto) 10.6 % (1.0-10.0) H Eosinophils (%) (Auto) 4.6 % (0.0-3.0) H Basophils (%) (Auto) 0.6 % (0.0-2.0) Sodium Level 134 MMOL/L (136-145) L Potassium Level 4.5 MMOL/L (3.5-5.1) Chloride Level 102 MMOL/L (98-107) Carbon Dioxide Level 22 MMOL/L (21-32) Anion Gap 10 mmol/L (5-15) Blood Urea Nitrogen 34 mg/dL (7-18) H Creatinine 1.3 MG/DL (0.55-1.30) Estimat Glomerular Filtration Rate 54.6 mL/min (>60) Glucose Level 115 MG/DL (74-106) H Uric Acid 3.6 MG/DL (2.6-7.2) Calcium Level 9.0 MG/DL (8.5-10.1) Phosphorus Level 3.8 MG/DL (2.5-4.9) Magnesium Level 1.8 MG/DL (1.8-2.4) Total Bilirubin 0.2 MG/DL (0.2-1.0) Direct Bilirubin < 0.1 MG/DL (0.0-0.3) Aspartate Amino Transf (AST/SGOT) 23 U/L (15-37) Alanine Aminotransferase (ALT/SGPT) 40 U/L (12-78) Alkaline Phosphatase 132 U/L (46-116) H Total Protein 7.6 G/DL (6.4-8.2) Albumin 2.8 G/DL (3.4-5.0) L Current Medications Medications (Trade) Dose Ordered Sig/Wanda Route PRN Reason Start Time Stop Time Status Last Admin Dose Admin Acetaminophen (Tylenol) 650 mg Q4H PRN GT Mild Pain/Temp > 100.5 08/01/18 02:00 08/31/18 01:59 08/04/18 17:48 Albuterol/ Ipratropium (Albuterol/ Ipratropium) 3 ml Q4H PRN HHN Shortness of Breath 08/10/18 11:56 08/15/18 11:55 Chlorhexidine Gluconate (Jasmin-Hex 2%) 1 applic DAILY@2000 TOPIC 08/02/18 20:00 09/01/18 19:59 08/11/18 20:26 Iron Sucrose 100 mg/Sodium Chloride 60 ml @ 240 mls/hr BEDTIME IV 08/12/18 21:00 08/14/18 21:14 Lansoprazole (Prevacid) 30 mg BID GT 08/03/18 18:00 09/02/18 17:59 08/12/18 10:25 Levothyroxine Sodium (Synthroid) 25 mcg DAILY IV 08/04/18 09:00 09/03/18 08:59 08/12/18 10:24 Ondansetron HCl (Zofran) 4 mg Q6H PRN IVP Nausea & Vomiting 08/03/18 20:29 09/02/18 20:28 08/04/18 06:30 Lisy Lai M.D. Aug 12, 2018 14:20
[2018-08-12 16:00] VITALS: BP 133/84
[2018-08-12] MEDS ORDERED: NS 275ml ONE (18:29)
[2018-08-12] MEDS ORDERED: Iron Sucrose 100 MG in NS 55 ML IV SCH (21:00)
--- NOTE | 2018-08-15 13:24 | Discharge Summary ---
Discharge Summary Discharge Summary _ DATE OF ADMISSION: 07/31/2018 DATE OF DISCHARGE: 08/12/2018 REASON FOR ADMISSION: 67 years old male with past medical history of ventilator dependent respiratory failure, tracheostomy status, history of CVA, dysphasia, G-tube, diabetes mellitus type 2, hypothyroidism, GERD, severe esophagitis, dementia of Alzheimer's disease, seizure disorder ,severe esophagitis, presented to emergency department for evaluation due to coffee-ground emesis. Patient had similar symptoms in the past. Onset for 1 day. No fever ,no chills, no abdominal distention . Vital signs were stable. Laboratory workup revealed leukocytosis WBC 13.0 ,hemoglobin 9.3, hematocrit 20.3. Electrolytes stable. BUN 40, creatinine 1.1. Stable LFT. Albumin 2.9. Troponin negative. EKG revealed sinus rhythm ,no acute ischemic changes. Urinalysis revealed evidence of UTI and hematuria as well as +3 protein. Chest x-ray revealed tracheostomy, elevation of the the right hemidiaphragm, no consolidation ,edema or other acute cardiopulmonary findings. Patient admitted with diagnoses of upper GI bleeding and anemia CONSULTANTS: pulmonary Dr. Keating ID specialist Dr. Daniels GI specialist - Dr. Wilson audio visual director Dr. Salvador media executive/oncologist Dr. Nath psychiatrist [facility] COURSE: Patient admitted to direct observational unit. GI specialist closely followed. Patient undergone EGD findings diffuse ulcerative esophagitis and peptic esophageal stricture. Biopsy revealed benign esophageal squamous mucosa. Stool for occult blood was positive. Patient with evidence of anemia. Hemoglobin and hematocrit were closely monitored with goal to keep hemoglobin above 7. Anemia workup was consistent with iron deficiency anemia. Patient undergone infusion of IV Venofer for 5 days. Hemoglobin and hematocrit remained at baseline. Patient started on PPI. GI closely follow. Dietary recommendations implemented in plan of care. Ventilator support and tracheostomy care provided. Patient started on empiric antibiotics. No evidence of pneumonia on chest x-ray. Probably pneumonitis. Baseline ABG was stable on current settings. Settings were kept as is. Follow-up chest x-ray still revealed no evidence of pneumonia. Strict aspiration precaution maintained. Patient tolerated G-tube feeding. Urine culture revealed Proteus ESBL, and repeated urine culture still revealed Proteus ESBL. Sputum culture revealed Klebsiella pneumonia ESBL and Stenotrophomonas . Patient had increased oral secretion, but no evidence of pneumonia on chest x -ray . Patient completed antibiotic regimen for UTI, including Bactrim : Stenotrophomonas and Klebsiella ESBL found in sputum, both susceptible to Bactrim ,though probably colonization of sputum. Renal parameters and electrolytes were closely monitored. Electrolytes were corrected as needed. Nephrotoxics were avoided. Typewriter Repairer followed. Creatinine was trended up. A Patient received IV fluids and subsequent IV boluses. Acute kidney injury resolved after boluses and IV fluids . Avoid nephrotoxic in future. TSH was within normal limits. Current dose of levothyroxine was continued. Bowel regimen instituted. Pain management was addressed as needed. Supportive care provided Per psychiatrist patient lacked capacity to make decision. Patient had a DURABLE POWER OF PRODUCT EXAMINER to make decisions for him. Seroquel was on board on as needed basis. Patient stabilized and was ready for discharge to shelter facility for continuation of care FINAL DIAGNOSES: GI hemorrhage/upper GI bleeding Status post upper endoscopy 07/13 Diffuse ulcerative esophagitis Peptic esophageal stricture Anemia of iron deficiency Severe protein calorie malnutrition Ventilator dependent respiratory failure with tracheostomy status ,acute on chronic Sepsis UTI with ESBL Proteus Probably pneumonitis Alzheimer's dementia Hypothyroidism Hypokalemia, resolved Acute kidney injury due to prerenal azotemia secondary to dehydration , resolved Alzheimer's dementia Psychosis DISCHARGE MEDICATIONS: See Medication Reconciliation list. DISCHARGE INSTRUCTIONS: Patient was discharged to the shelter facility. Follow up with medical doctor at the facility. I have been assigned to dictate discharge summary for this account. I was not involved in the patient's management. Amina Garcia NP Aug 15, 2018 13:24
== END 2018-08-12 18:30 | DRG 870 ==
LOC: EDUNIT# 22:41 → EDBD 22:41 → EMR 22:59 → EDBEDREQ 23:27 → 2W 23:44 → EDBEDREQSVC 23:57 → EDBEDREQ 08-01 00:04
PROC: 5A1955Z Respiratory Ventilation, Greater than 96 Consecutive Hours (ICD-10-PCS; principal; 2018-07-31)
PROC: 0DB28ZX Excision of Middle Esophagus, Via Natural or Artificial Opening Endoscopic, Diagnostic (ICD-10-PCS; 2018-08-02)
PROC: B548ZZA Ultrasonography of Superior Vena Cava, Guidance (ICD-10-PCS; 2018-08-02)
PROC: 02HV33Z Insertion of Infusion Device into Superior Vena Cava, Percutaneous Approach (ICD-10-PCS; 2018-08-02)
DX: A41.9 Sepsis, unspecified organism (principal); J96.20 Acute and chronic respiratory failure, unspecified whether with hypoxia or hypercapnia; E43 Unspecified severe protein-calorie malnutrition; K92.2 Gastrointestinal hemorrhage, unspecified; N39.0 Urinary tract infection, site not specified; K22.10 Ulcer of esophagus without bleeding; K94.23 Gastrostomy malfunction; Z99.11 Dependence on respirator [ventilator] status; N17.9 Acute kidney failure, unspecified; Z68.20 Body mass index [BMI] 20.0-20.9, adult; E03.9 Hypothyroidism, unspecified; K21.0 Gastro-esophageal reflux disease with esophagitis; K22.2 Esophageal obstruction; Z93.0 Tracheostomy status; I10 Essential (primary) hypertension; R13.10 Dysphagia, unspecified; D50.9 Iron deficiency anemia, unspecified; E86.0 Dehydration; G30.9 Alzheimer's disease, unspecified; F02.80 Dementia in other diseases classified elsewhere, unspecified severity, without behavioral disturbance, psychotic disturbance, mood disturbance, and anxiety; F29 Unspecified psychosis not due to a substance or known physiological condition; E87.6 Hypokalemia; G40.909 Epilepsy, unspecified, not intractable, without status epilepticus; R31.9 Hematuria, unspecified; R19.5 Other fecal abnormalities
CPT/HCPCS: 36415; 36569; 36600; 71045; 74018; 76937; 80048; 80053; 80076; 81003; 82270; 82550; 82553; 82607; 82728; 82746; 82803; 82977; 83036; 83540; 83550; 83735; 83880; 84100; 84132; 84443; 84484; 84550; 85025; 85610; 85651; 85730; 86140; 86850; 86900; 86901; 86920; 87070; 87081; 87086; 87181; 87205; 93005; 93970; 94002; 94003; 94150; 94640; 94664; 96360; 97802; 99285; J2250; J2405; J7620

== ENCOUNTER 2018-10-02 13:25 | Inpatient (IN) | payer MEDICARE ==
[~2018-10-02] VITALS: Ht 185.4 cm; Wt 59.9 kg
[~2018-10-02 13:25] MED LIST changes: +UNOBMED
--- NOTE | 2018-10-02 13:45 | Emergency Room Report ---
History of Present Illness General Chief Complaint: Abnormal Labs Source: EMS Present Illness HPI Patient is a 68-year-old male brought in by ALS ambulance for increased white blood count. Patient had reportedly been having one episode of coffee-ground emesis. Patient is chronically vent and G-tube dependent. Patient was noted to have prior history of type 2 diabetes. Patient was sent in for further evaluation. History is markedly limited by patient's mental status. Allergies: Coded Allergies: NO KNOWN DRUG ALLERGIES (Verified Allergy, Unknown, 09/11/16) Patient History Past Medical History: see triage record Reviewed Nursing Documentation: PMH: Agreed; PSxH: Agreed Nursing Documentation-PMH Hx Cardiac Problems: Yes Hx Hypertension: Yes Hx Pacemaker: No Hx Asthma: Yes Hx COPD: No - vent dependent Hx Diabetes: Yes - DM II Hx Cancer: No Hx Gastrointestinal Problems: Yes Hx Dialysis: Yes Hx Neurological Problems: Yes Hx Cerebrovascular Accident: Yes Hx Transient Ischemic Attacks: Yes Hx Dementia: Yes Hx Alzheimer's Disease: Yes Hx Parkinson's Disease: Yes Hx Encephalitis: Yes Hx Seizures: Yes Hx Epilepsy: Yes Hx Paralysis: Yes - HEMIPLEGIA Hx Memory Loss: Yes Hx Concentration Difficulty: Yes Hx Speech Problem: Yes Hx Aphasia: Yes Hx Weakness: Yes Hx Fatigue: Yes Hx Neurologic Surgery: No Hx Brain Shunt: No Review of Systems All Other Systems: limited - Review of systems is limited by mental status. Physical Exam Vital Signs Date Time Temp Pulse Resp B/P (MAP) Pulse Ox O2 Delivery O2 Flow Rate FiO2 10/02/18 13:27 91 18 133/78 99 Mechanical Ventilator 40 General Appearance: alert, mild distress, Chronically Ill Head: atraumatic Eyes: bilateral eye PERRL ENT: dry mucus membranes Neck: limited range of motion Respiratory: lungs clear Cardiovascular #1: normal peripheral pulses, regular rate, rhythm Gastrointestinal: normal inspection, soft, other - gtube Rectal: deferred Genitourinary: normal inspection Musculoskeletal: decreased range of motion, other - contracted Neurologic: responsive, motor weakness, other - withdraws to pain Lymphatic: normal inspection Medical Decision Making Diagnostic Impression: Primary Impression: Upper GI bleed Additional Impression: Sepsis ER Course Patient presented for hematemesis. Differential diagnosis include was not limited to sepsis, gastritis, ulcer, coagulopathy, [id number], among others. Patient was started on IV acid blockers. He was noted to be ventilator dependent was started on mechanical ventilation. Patient was noted to have chest x-ray with bilateral lower congestion as well as a some evidence of a urinary infection. Patient's initial white blood count was noted to be elevated and he was empirically started on IV antibiotics. Dr. Gato Viveros was contacted for inpatient management to primary care physician. Labs Test 10/02/18 14:28 10/02/18 14:40 White Blood Count 19.9 K/UL (4.8-10.8) Red Blood Count 3.70 M/UL (4.70-6.10) Hemoglobin 10.2 G/DL (14.2-18.0) Hematocrit 31.3 % (42.0-52.0) Mean Corpuscular Volume 85 FL (80-99) Mean Corpuscular Hemoglobin 27.5 PG (27.0-31.0) Mean Corpuscular Hemoglobin Concent 32.5 G/DL (32.0-36.0) Red Cell Distribution Width 14.5 % (11.6-14.8) Platelet Count 408 K/UL (150-450) Mean Platelet Volume 6.6 FL (6.5-10.1) Neutrophils (%) (Auto) % (45.0-75.0) Lymphocytes (%) (Auto) % (20.0-45.0) Monocytes (%) (Auto) % (1.0-10.0) Eosinophils (%) (Auto) % (0.0-3.0) Basophils (%) (Auto) % (0.0-2.0) Differential Total Cells Counted 100 Neutrophils % (Manual) 93 % (45-75) Lymphocytes % (Manual) 4 % (20-45) Monocytes % (Manual) 1 % (1-10) Eosinophils % (Manual) 2 % (0-3) Basophils % (Manual) 0 % (0-2) Band Neutrophils 0 % (0-8) Platelet Estimate Adequate Platelet Morphology Normal Hypochromasia 1+ Sodium Level 136 MMOL/L (136-145) Potassium Level 3.7 MMOL/L (3.5-5.1) Chloride Level 102 MMOL/L (98-107) Carbon Dioxide Level 24 MMOL/L (21-32) Anion Gap 10 mmol/L (5-15) Blood Urea Nitrogen 34 mg/dL (7-18) Creatinine 1.2 MG/DL (0.55-1.30) Estimat Glomerular Filtration Rate 59.9 mL/min (>60) Glucose Level 112 MG/DL (74-106) Lactic Acid Level 1.20 mmol/L (0.4-2.0) Calcium Level 9.5 MG/DL (8.5-10.1) Total Bilirubin 0.1 MG/DL (0.2-1.0) Aspartate Amino Transf (AST/SGOT) 18 U/L (15-37) Alanine Aminotransferase (ALT/SGPT) 31 U/L (12-78) Alkaline Phosphatase 134 U/L (46-116) Total Creatine Kinase 52 U/L (26-308) Creatine Kinase MB 2.5 NG/ML (0.0-3.6) Creatine Kinase MB Relative Index 4.8 Troponin I 0.006 ng/mL (0.000-0.056) Total Protein 8.0 G/DL (6.4-8.2) Albumin 2.9 G/DL (3.4-5.0) Globulin 5.1 g/dL Albumin/Globulin Ratio 0.6 (1.0-2.7) Urine Color Pale yellow Urine Appearance Cloudy Urine pH 8 (4.5-8.0) Urine Specific [place] 1.010 (1.005-1.035) Urine Protein 2+ (NEGATIVE) Urine Glucose (UA) Negative (NEGATIVE) Urine Ketones Negative (NEGATIVE) Urine Blood 4+ (NEGATIVE) Urine Nitrite Negative (NEGATIVE) Urine Bilirubin Negative (NEGATIVE) Urine Urobilinogen Normal MG/DL (0.0-1.0) Urine Leukocyte Esterase 3+ (NEGATIVE) Urine RBC 10-15 /HPF (0 - 0) Urine WBC 30-40 /HPF (0 - 0) Urine Squamous Epithelial Cells None /LPF (NONE/OCC) Urine Bacteria Moderate /HPF (NONE) EKG Diagnostic Results Rate: normal - 99 Rhythm: NSR ST Segments: no acute changes Rhythm Strip Diag. Results EP Interpretation: yes Rhythm: NSR, no PVC's, no ectopy Last Vital Signs Date Time Temp Pulse Resp B/P (MAP) Pulse Ox O2 Delivery O2 Flow Rate FiO2 10/02/18 13:27 91 18 133/78 99 Mechanical Ventilator 40 Status: unchanged Disposition: ADMITTED INPATIENT Condition: Serious Brian Ma MD Oct 02, 2018 13:45
[2018-10-02 13:50] VITALS: BP 133/78
[2018-10-02] MEDS ORDERED: Heparin 2000 units/Ns 1000ml INJ ONE (14:30)
[2018-10-02] MEDS ORDERED: Lidocaine 1% Plain 30 ml INJ ONE (14:30)
[2018-10-02 14:35] LABS: HEMATOCRIT 31.3 % (42.0-52.0); HEMOGLOBIN 10.2 G/DL (14.2-18.0); MEAN CORPUSCULAR VOLUME 85 FL (80-99); PLATELET COUNT 408 K/UL (150-450); RED CELL DISTRIBUTION WIDTH 14.5 % (11.6-14.8); WHITE BLOOD COUNT 19.9 K/UL (4.8-10.8)
[2018-10-02 14:56] LABS: ANION GAP 10 mmol/L (5-15); BLOOD UREA NITROGEN 34 mg/dL (7-18); CALCIUM 9.5 MG/DL (8.5-10.1); CARBON DIOXIDE 24 MMOL/L (21-32); CHLORIDE 102 MMOL/L (98-107); CREATININE 1.2 MG/DL (0.55-1.30); POTASSIUM 3.7 MMOL/L (3.5-5.1); SODIUM 136 MMOL/L (136-145)
[2018-10-02 15:03] LABS: ALANINE AMINOTRANSFERASE 31 U/L (12-78); ALBUMIN 2.9 G/DL (3.4-5.0); ALBUMIN/GLOBULIN RATIO 0.6 (1.0-2.7); ALKALINE PHOSPHATASE 134 U/L (46-116); ASPARTATE AMINO TRANSFERASE 18 U/L (15-37); BILIRUBIN,TOTAL 0.1 MG/DL (0.2-1.0); CKMB 2.5 NG/ML (0.0-3.6); CREATINE KINASE 52 U/L (26-308)
[2018-10-02 15:12] LABS: BILIRUBIN, URINE NEGATIVE (NEGATIVE); COLOR,URINE PALE YELLOW; GLUCOSE, URINE (UA) NEGATIVE (NEGATIVE); KETONES,URINE NEGATIVE (NEGATIVE); LEUKOCYTE ESTERASE ,URINE 3+ (NEGATIVE); NITRITE,URINE NEGATIVE (NEGATIVE); PH,URINE 8 (4.5-8.0); PROTEIN,URINE 2+ (NEGATIVE); UROBILINOGEN,URINE NORMAL MG/DL (0.0-1.0)
[2018-10-02 15:16] LABS: APPEARANCE,URINE CLOUDY
[2018-10-02] MEDS ORDERED: Cefepime 1gm vial ONE (15:28)
[2018-10-02] MEDS: Cefepime HCl 1 GM in NS 55 ML IV SCH ×2 (15:30→16:01)
[2018-10-02] MEDS ORDERED: LORazepam Inj 2mg/ml 1ml IV PRN (15:45)
[2018-10-02] MEDS ORDERED: Miralax 17gm pkt ORAL PRN (15:45)
[2018-10-02] MEDS ORDERED: Albuterol/Ipratropium 3ml neb HHN PRN (15:45)
[2018-10-02] MEDS ORDERED: Morphine Sulfate 4mg/ml Inj (IV/IM USE ONLY) IVP PRN (15:45)
[2018-10-02] MEDS ORDERED: Dextrose 50% 25ml Syringe IV PRN (16:00)
[2018-10-02 16:16] VITALS: BP 138/76
--- NOTE | 2018-10-02 16:56 | Diagnostic Imaging Report ---
Indication: Dyspnea Technique: One view of the chest Comparison: 08/12/2018 Findings: Tracheostomy is again demonstrated. Previously demonstrated right arm PICC is no longer evident. There is some atelectasis in the right perihilar region. Lungs and pleural spaces are otherwise clear. The heart size is normal Impression: No acute process. Findings as noted
[2018-10-02] MEDS ORDERED: Vancomycin 1 GM in D5W 275 ML IVPB SCH (18:00)
[2018-10-02] MEDS: Sucralfate 1gm tab GT SCH ×2 (18:42→20:16)
[2018-10-02 20:00] VITALS: BP 121/65
[2018-10-02] MEDS: Dyna-Hex 2% Top Sol 2oz TOPIC SCH (20:16)
[2018-10-02] MEDS ORDERED: Heparin 5000 units/ml inj SUBQ SCH (21:00)
[2018-10-03] VITALS: BP 131/59
[2018-10-03 04:00] VITALS: BP 128/77
[2018-10-03 05:42] LABS: ALBUMIN 2.6 G/DL (3.4-5.0); ANION GAP 14 mmol/L (5-15); BLOOD UREA NITROGEN 25 mg/dL (7-18); CALCIUM 8.5 MG/DL (8.5-10.1); CARBON DIOXIDE 19 MMOL/L (21-32); CHLORIDE 105 MMOL/L (98-107); CREATININE 1.2 MG/DL (0.55-1.30); PHOSPHORUS 2.7 MG/DL (2.5-4.9); POTASSIUM 3.5 MMOL/L (3.5-5.1); SODIUM 138 MMOL/L (136-145)
[2018-10-03 05:43] LABS: BASOPHILS % (AUTO) 0.6 % (0.0-2.0); EOSINOPHILS % (AUTO) 2.4 % (0.0-3.0); HEMATOCRIT 27.5 % (42.0-52.0); HEMOGLOBIN 8.9 G/DL (14.2-18.0); LYMPHOCYTES % (AUTO) 11.4 % (20.0-45.0); MEAN CORPUSCULAR VOLUME 84 FL (80-99); MONOCYTES % (AUTO) 7.7 % (1.0-10.0); PLATELET COUNT 368 K/UL (150-450); RED BLOOD COUNT 3.26 M/UL (4.70-6.10); RED CELL DISTRIBUTION WIDTH 14.8 % (11.6-14.8); WHITE BLOOD COUNT 14.3 K/UL (4.8-10.8)
[2018-10-03 08:00] VITALS: BP 126/70
[2018-10-03] MEDS: Sucralfate 1gm tab GT SCH ×4 (09:59→20:09)
[2018-10-03] MEDS: Pantoprazole Inj IV SCH (09:59)
--- NOTE | 2018-10-03 11:45 | Consultation ---
History of Present Illness General Date patient seen: Oct 03, 2018 Chief Complaint: Abnormal Labs Present Illness HPI 68 y/o M with hx of HTN, CVA/TIA w/ hemiplegia, functional quadriplegia, chronic encephalopathy, CAD, CHF, hypothyroidism, chronic resp failure trach/ vent dependent, dysphagia s/p G-tube, Dm2, GIB s/p multiple EGDs in the past, hx of severe esophagitis, schizoaffective disease, [facility] resident, multiple admissions presents to ED on 10/02 with one episode of coffee ground emesis ( this is a recurrent episode for him). He was last admissted here on Jul -Aug 2018 for GIB. Also treated for ESBL UTI at that time. Allergies: Coded Allergies: NO KNOWN DRUG ALLERGIES (Verified Allergy, Unknown, 09/11/16) Medication History Scheduled Docusate Sodium* (Docusate Sodium*), 100 MG GT DAILY, (Reported) Levothyroxine Sodium* (Levothyroxine Sodium*), 50 MCG GT DAILY, (Reported) Magnesium Hydroxide* (Milk Of Magnesia*), 30 ML GT HS, (Reported) Multivitamin Liquid* (Multi-Delyn*), 15 ML GT DAILY, (Reported) Omeprazole (Omeprazole), 20 MG ORAL DAILY, (Reported) Sucralfate* (Carafate*), 1 GM GT FOUR TIMES A DAY, (Reported) Scheduled PRN Acetaminophen (Acetaminophen), 640 MG GT Q4HR PRN for Prn Headache/Temp > 101, ( Reported) Bisacodyl (Dulcolax), 10 MG RC NEEDED PRN for IF MOM INEFFECTIVE, (Reported) Na Phos,M-B/Na Phos,Di-Ba* (Fleet Enema*), 133 ML RECTAL QOD PRN for IF DUCOLAX INEFFETIVE, (Reported) Miscellaneous Medications Unable to Obtain Medications (Unable To Obtain Meds), (Reported) Patient History Healthcare decision maker Y Resuscitation status Full Code Advanced Directive on File Yes Patient History Narrative Pmhx: as above Shx: reviewed Fhx: non contributory Review of Systems ROS Narrative unable to obtain Physical Exam Physical Exam Narrative General Appearance: alert, mild distress, Chronically Ill Neck: limited range of motion Respiratory: lungs clear Cardiovascular #1: normal peripheral pulses, regular rate, rhythm Gastrointestinal: normal inspection, soft Musculoskeletal: other - contracted Neurologic: motor weakness Last 24 Hour Vital Signs Date Time Temp Pulse Resp B/P (MAP) Pulse Ox O2 Delivery O2 Flow Rate FiO2 10/03/18 11:04 90 18 40 10/03/18 08:56 82 16 40 10/03/18 08:00 Mechanical Ventilator 10/03/18 08:00 85 10/03/18 08:00 98.7 70 17 126/70 (88) 98 10/03/18 08:00 40 10/03/18 07:13 93 17 40 10/03/18 07:13 93 16 Mechanical Ventilator 40 10/03/18 04:39 82 18 40 10/03/18 04:00 98.0 80 12 128/77 (94) 99 10/03/18 04:00 Mechanical Ventilator 10/03/18 04:00 40 10/03/18 04:00 81 10/03/18 02:37 90 19 40 10/03/18 00:43 88 21 40 10/03/18 00:00 Mechanical Ventilator 10/03/18 00:00 77 10/03/18 00:00 40 10/03/18 00:00 98.2 82 11 131/59 (83) 99 10/02/18 22:34 75 17 40 10/02/18 20:39 78 16 40 10/02/18 20:00 88 10/02/18 20:00 Mechanical Ventilator 10/02/18 20:00 98.1 80 12 121/65 (83) 100 10/02/18 19:00 80 16 Mechanical Ventilator 40 10/02/18 19:00 80 16 40 10/02/18 17:00 93 17 40 10/02/18 16:16 97.5 96 20 138/76 (96) 100 10/02/18 16:15 Mechanical Ventilator 10.0 10/02/18 16:15 88 10/02/18 16:00 40 10/02/18 15:40 98.8 98 22 124/84 100 Endotracheal Tube 40 10/02/18 15:06 94 18 40 10/02/18 13:50 94 18 Mechanical Ventilator 40 10/02/18 13:50 40 10/02/18 13:50 98.8 89 18 133/78 99 Mechanical Ventilator 40 10/02/18 13:30 94 18 40 10/02/18 13:27 91 18 133/78 99 Mechanical Ventilator 40 Intake and Output 10/02/18 10/03/18 19:00 07:00 Intake Total 1860 ml 765 ml Output Total 1000 ml Balance 860 ml 765 ml Intake Oral 0 ml Free Water 100 ml 100 ml IV Total 1700 ml 275 ml Tube Feeding 60 ml 330 ml Other 60 ml Output Urine Total 1000 ml # Bowel Movements 1 Laboratory Tests Test 10/02/18 14:28 10/02/18 14:40 10/03/18 03:10 White Blood Count 19.9 K/UL (4.8-10.8) H 14.3 K/UL (4.8-10.8) H Red Blood Count 3.70 M/UL (4.70-6.10) L 3.26 M/UL (4.70-6.10) L Hemoglobin 10.2 G/DL (14.2-18.0) L 8.9 G/DL (14.2-18.0) L Hematocrit 31.3 % (42.0-52.0) L 27.5 % (42.0-52.0) L Mean Corpuscular Volume 85 FL (80-99) 84 FL (80-99) Mean Corpuscular Hemoglobin 27.5 PG (27.0-31.0) 27.4 PG (27.0-31.0) Mean Corpuscular Hemoglobin Concent 32.5 G/DL (32.0-36.0) 32.4 G/DL (32.0-36.0) Red Cell Distribution Width 14.5 % (11.6-14.8) 14.8 % (11.6-14.8) Platelet Count 408 K/UL (150-450) 368 K/UL (150-450) Mean Platelet Volume 6.6 FL (6.5-10.1) 6.5 FL (6.5-10.1) Neutrophils (%) (Auto) % (45.0-75.0) 78.0 % (45.0-75.0) H Lymphocytes (%) (Auto) % (20.0-45.0) 11.4 % (20.0-45.0) L Monocytes (%) (Auto) % (1.0-10.0) 7.7 % (1.0-10.0) Eosinophils (%) (Auto) % (0.0-3.0) 2.4 % (0.0-3.0) Basophils (%) (Auto) % (0.0-2.0) 0.6 % (0.0-2.0) Differential Total Cells Counted 100 Neutrophils % (Manual) 93 % (45-75) H Lymphocytes % (Manual) 4 % (20-45) L Monocytes % (Manual) 1 % (1-10) Eosinophils % (Manual) 2 % (0-3) Basophils % (Manual) 0 % (0-2) Band Neutrophils 0 % (0-8) Platelet Estimate Adequate Platelet Morphology Normal Hypochromasia 1+ Sodium Level 136 MMOL/L (136-145) 138 MMOL/L (136-145) Potassium Level 3.7 MMOL/L (3.5-5.1) 3.5 MMOL/L (3.5-5.1) Chloride Level 102 MMOL/L (98-107) 105 MMOL/L (98-107) Carbon Dioxide Level 24 MMOL/L (21-32) 19 MMOL/L (21-32) L Anion Gap 10 mmol/L (5-15) 14 mmol/L (5-15) Blood Urea Nitrogen 34 mg/dL (7-18) H 25 mg/dL (7-18) H Creatinine 1.2 MG/DL (0.55-1.30) 1.2 MG/DL (0.55-1.30) Estimat Glomerular Filtration Rate 59.9 mL/min (>60) 59.9 mL/min (>60) Glucose Level 112 MG/DL (74-106) H 110 MG/DL (74-106) H Lactic Acid Level 1.20 mmol/L (0.4-2.0) Calcium Level 9.5 MG/DL (8.5-10.1) 8.5 MG/DL (8.5-10.1) Total Bilirubin 0.1 MG/DL (0.2-1.0) L Aspartate Amino Transf (AST/SGOT) 18 U/L (15-37) Alanine Aminotransferase (ALT/SGPT) 31 U/L (12-78) Alkaline Phosphatase 134 U/L (46-116) H Total Creatine Kinase 52 U/L (26-308) Creatine Kinase MB 2.5 NG/ML (0.0-3.6) Creatine Kinase MB Relative Index 4.8 Troponin I 0.006 ng/mL (0.000-0.056) Total Protein 8.0 G/DL (6.4-8.2) Albumin 2.9 G/DL (3.4-5.0) L 2.6 G/DL (3.4-5.0) L Globulin 5.1 g/dL Albumin/Globulin Ratio 0.6 (1.0-2.7) L Urine Color Pale yellow Urine Appearance Cloudy Urine pH 8 (4.5-8.0) Urine Specific [place] 1.010 (1.005-1.035) Urine Protein 2+ (NEGATIVE) H Urine Glucose (UA) Negative (NEGATIVE) Urine Ketones Negative (NEGATIVE) Urine Blood 4+ (NEGATIVE) H Urine Nitrite Negative (NEGATIVE) Urine Bilirubin Negative (NEGATIVE) Urine Urobilinogen Normal MG/DL (0.0-1.0) Urine Leukocyte Esterase 3+ (NEGATIVE) H Urine RBC 10-15 /HPF (0 - 0) H Urine WBC 30-40 /HPF (0 - 0) H Urine Squamous Epithelial Cells None /LPF (NONE/OCC) Urine Bacteria Moderate /HPF (NONE) H Phosphorus Level 2.7 MG/DL (2.5-4.9) Microbiology Date/Time Source Procedure Growth Status 10/02/18 14:40 Urine,Clean Catch Urine Culture - Preliminary Gram Negative Bacillus 1 Resulted Height (Feet): 6 Height (Inches): 1.00 Weight (Pounds): 124 Medications Current Medications Medications (Trade) Dose Ordered Sig/Wanda Route PRN Reason Start Time Stop Time Status Last Admin Dose Admin Acetaminophen (Tylenol) 650 mg Q4H PRN ORAL T>100.5 10/02/18 15:45 11/01/18 15:44 Albuterol/ Ipratropium (Albuterol/ Ipratropium) 3 ml Q4H PRN HHN Shortness of Breath 10/02/18 15:45 10/07/18 15:44 Cefepime HCl 1 gm/ Sodium Chloride 55 ml @ 110 mls/hr Q12H IV 10/02/18 13:45 10/03/18 13:44 10/02/18 16:01 Chlorhexidine Gluconate (Jasmin-Hex 2%) 1 applic DAILY@1999 TOPIC 10/02/18 20:00 11/01/18 19:59 10/02/18 20:16 Dextrose (Dextrose 50%) 25 ml Q30M PRN IV Hypoglycemia 10/02/18 16:00 11/01/18 15:48 Dextrose (Dextrose 50%) 50 ml Q30M PRN IV hypoglycemia 10/02/18 16:00 11/01/18 15:59 Levothyroxine Sodium (Synthroid) 50 mcg DAILY GT 10/03/18 09:00 11/02/18 08:59 10/03/18 09:59 Lorazepam (Ativan 2mg/ml 1ml) 2 mg Q2H PRN IV For Anxiety 10/02/18 15:45 10/09/18 15:44 Morphine Sulfate (Morphine Sulfate) 4 mg Q4H PRN IVP Severe Pain (Pain Scale 7-10) 10/02/18 15:45 10/09/18 15:44 Ondansetron HCl (Zofran) 4 mg Q6H PRN IVP Nausea & Vomiting 10/02/18 15:45 11/01/18 15:44 Pantoprazole (Protonix) 40 mg DAILY IV 10/03/18 09:00 11/02/18 08:59 10/03/18 09:59 Polyethylene Glycol (Miralax) 17 gm DAILYPRN PRN ORAL Constipation 10/02/18 15:45 11/01/18 15:44 Sucralfate (Carafate) 1 gm FOUR TIMES A DAY GT 10/02/18 18:00 11/01/18 17:59 10/03/18 09:59 Vancomycin HCl (Vanco rx to dose) 1 ea DAILY PRN MISC PER PHARMACY 10/02/18 16:00 11/01/18 15:59 Vancomycin HCl 1 gm/Dextrose 275 ml @ 183.3 mls/ hr Q24H IVPB 10/02/18 18:00 10/07/18 17:59 10/02/18 18:42 Assessment/Plan Assessment/Plan Abx: IV Vancomycin 10/02- Cefepime 10/02- Assessment: Probable UTI -u.a wbc 30-40, nit neg, leuk +3; ucx 40-50k GNR Afebrile Leukocytosis, improving -CXR: No acute process. Findings as noted Recurreng UGIB Hx of ESBL UTI 07/2018, s/p Rx 08/01/18 UCxESBL Proteus Sen to erta, zosyn and bactrim; 08/02/18 UCx ESBL P.mirabilis Hx of ESBL and S. maltophilia PNA 07/2018, s/p Rx -sp cx ESBL P.mirabils (S Bactrim), S. maltophilia (S Bactrim) Hx Constipation Chronic respiratory failure trach/vent dependant Hypothyroidism GERD Hypertension Hx C. diff Dysphagia s/p G-tube Anemia. CVA/TIA w/ hemiplegia functional quadriplegia chronic encephalopathy CAD CHF Dm2 GIB s/p multiple EGDs in the past hx of severe esophagitis schizoaffective disease [facility]dc resident multiple admissions Plan: -D/c empiric IV Vancomycin #2 and Switch Cefepime #2 to Meropenem for UTI given prior hx of ESBL -08/09/18 SP Bactrim #7 -08/03 SP Vancomycin and Cefepime #3 -08/01/18 SP Ceftriaxone x1 -f/u cx -Monitor CBC/CMP, temperatures -peg/trach care -aspiration precautions Thank you for this consultation. Will continue to follow along with you. Discussed with Lisy Lindo M.D. Oct 03, 2018 11:45
--- NOTE | 2018-10-03 11:47 | Pulmonolgy Critical Care Note ---
Critical Care - Asmt/Plan Problems: (1) Sepsis (2) Chronic respiratory failure (3) Protein-calorie malnutrition, severe (4) Severe erosive esophagitis (5) Feeding by G-tube (6) Alzheimer's dementia Respiratory: monitor respiratory rate, adjust FIO2 Cardiac: continue to monitor HR/BP Renal: F/U I&O, keep IV fluid, check electrolytes Infectious Disease: check cultures, continue antibiotics Gastrointestinal: continue feedings/current rate Endocrine: monitor blood sugar Hematologic: monitor H/H, transfuse if hgb<8.5 Neurologic: PRN Morphine Affect: PRN ativan Prophylaxis: Protonix, Heparin Time Spent (Minutes): 40 Notes Reviewed: cardio, 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 with: nurses, consultants, casey saw operatormanager universal - Objective Last 24 Hour Vital Signs Date Time Temp Pulse Resp B/P (MAP) Pulse Ox O2 Delivery O2 Flow Rate FiO2 10/03/18 11:04 90 18 40 10/03/18 08:56 82 16 40 10/03/18 08:00 Mechanical Ventilator 10/03/18 08:00 85 10/03/18 08:00 98.7 70 17 126/70 (88) 98 10/03/18 08:00 40 10/03/18 07:13 93 17 40 10/03/18 07:13 93 16 Mechanical Ventilator 40 10/03/18 04:39 82 18 40 10/03/18 04:00 98.0 80 12 128/77 (94) 99 10/03/18 04:00 Mechanical Ventilator 10/03/18 04:00 40 10/03/18 04:00 81 10/03/18 02:37 90 19 40 10/03/18 00:43 88 21 40 10/03/18 00:00 Mechanical Ventilator 10/03/18 00:00 77 10/03/18 00:00 40 10/03/18 00:00 98.2 82 11 131/59 (83) 99 10/02/18 22:34 75 17 40 10/02/18 20:39 78 16 40 10/02/18 20:00 88 10/02/18 20:00 Mechanical Ventilator 10/02/18 20:00 98.1 80 12 121/65 (83) 100 10/02/18 19:00 80 16 Mechanical Ventilator 40 10/02/18 19:00 80 16 40 10/02/18 17:00 93 17 40 10/02/18 16:16 97.5 96 20 138/76 (96) 100 10/02/18 16:15 Mechanical Ventilator 10.0 10/02/18 16:15 88 10/02/18 16:00 40 10/02/18 15:40 98.8 98 22 124/84 100 Endotracheal Tube 40 10/02/18 15:06 94 18 40 10/02/18 13:50 94 18 Mechanical Ventilator 40 10/02/18 13:50 40 10/02/18 13:50 98.8 89 18 133/78 99 Mechanical Ventilator 40 10/02/18 13:30 94 18 40 10/02/18 13:27 91 18 133/78 99 Mechanical Ventilator 40 Condition: critical HEENT: atraumatic Lungs: clear Heart: HR/BP stable, regular Abdomen: non-tender, feeding tube Extremities: edema Decubiti: location Micro: Microbiology Date/Time Source Procedure Growth Status 10/02/18 14:40 Urine,Clean Catch Urine Culture - Preliminary Gram Negative Bacillus 1 Resulted Critical Care - Subjective ROS Limited/Unobtainable: Yes Interval Events: chronic vent/trached pt, admitted with CC of fever FI02: 40 Vent Support Breath Rate: 16 Vent Support Mode: AC Vent Tidal Volume: 600 Sputum Amount: Small PEEP: 5.0 PIP: 27 Tube Feeding Amount: 30 I&O: Intake and Output 10/02/18 10/03/18 19:00 07:00 Intake Total 1860 ml 765 ml Output Total 1000 ml Balance 860 ml 765 ml Intake Oral 0 ml Free Water 100 ml 100 ml IV Total 1700 ml 275 ml Tube Feeding 60 ml 330 ml Other 60 ml Output Urine Total 1000 ml # Bowel Movements 1 CXR: trach intact Labs: Laboratory Tests Test 10/02/18 14:28 10/02/18 14:40 10/03/18 03:10 White Blood Count 19.9 K/UL (4.8-10.8) H 14.3 K/UL (4.8-10.8) H Red Blood Count 3.70 M/UL (4.70-6.10) L 3.26 M/UL (4.70-6.10) L Hemoglobin 10.2 G/DL (14.2-18.0) L 8.9 G/DL (14.2-18.0) L Hematocrit 31.3 % (42.0-52.0) L 27.5 % (42.0-52.0) L Mean Corpuscular Volume 85 FL (80-99) 84 FL (80-99) Mean Corpuscular Hemoglobin 27.5 PG (27.0-31.0) 27.4 PG (27.0-31.0) Mean Corpuscular Hemoglobin Concent 32.5 G/DL (32.0-36.0) 32.4 G/DL (32.0-36.0) Red Cell Distribution Width 14.5 % (11.6-14.8) 14.8 % (11.6-14.8) Platelet Count 408 K/UL (150-450) 368 K/UL (150-450) Mean Platelet Volume 6.6 FL (6.5-10.1) 6.5 FL (6.5-10.1) Neutrophils (%) (Auto) % (45.0-75.0) 78.0 % (45.0-75.0) H Lymphocytes (%) (Auto) % (20.0-45.0) 11.4 % (20.0-45.0) L Monocytes (%) (Auto) % (1.0-10.0) 7.7 % (1.0-10.0) Eosinophils (%) (Auto) % (0.0-3.0) 2.4 % (0.0-3.0) Basophils (%) (Auto) % (0.0-2.0) 0.6 % (0.0-2.0) Differential Total Cells Counted 100 Neutrophils % (Manual) 93 % (45-75) H Lymphocytes % (Manual) 4 % (20-45) L Monocytes % (Manual) 1 % (1-10) Eosinophils % (Manual) 2 % (0-3) Basophils % (Manual) 0 % (0-2) Band Neutrophils 0 % (0-8) Platelet Estimate Adequate Platelet Morphology Normal Hypochromasia 1+ Sodium Level 136 MMOL/L (136-145) 138 MMOL/L (136-145) Potassium Level 3.7 MMOL/L (3.5-5.1) 3.5 MMOL/L (3.5-5.1) Chloride Level 102 MMOL/L (98-107) 105 MMOL/L (98-107) Carbon Dioxide Level 24 MMOL/L (21-32) 19 MMOL/L (21-32) L Anion Gap 10 mmol/L (5-15) 14 mmol/L (5-15) Blood Urea Nitrogen 34 mg/dL (7-18) H 25 mg/dL (7-18) H Creatinine 1.2 MG/DL (0.55-1.30) 1.2 MG/DL (0.55-1.30) Estimat Glomerular Filtration Rate 59.9 mL/min (>60) 59.9 mL/min (>60) Glucose Level 112 MG/DL (74-106) H 110 MG/DL (74-106) H Lactic Acid Level 1.20 mmol/L (0.4-2.0) Calcium Level 9.5 MG/DL (8.5-10.1) 8.5 MG/DL (8.5-10.1) Total Bilirubin 0.1 MG/DL (0.2-1.0) L Aspartate Amino Transf (AST/SGOT) 18 U/L (15-37) Alanine Aminotransferase (ALT/SGPT) 31 U/L (12-78) Alkaline Phosphatase 134 U/L (46-116) H Total Creatine Kinase 52 U/L (26-308) Creatine Kinase MB 2.5 NG/ML (0.0-3.6) Creatine Kinase MB Relative Index 4.8 Troponin I 0.006 ng/mL (0.000-0.056) Total Protein 8.0 G/DL (6.4-8.2) Albumin 2.9 G/DL (3.4-5.0) L 2.6 G/DL (3.4-5.0) L Globulin 5.1 g/dL Albumin/Globulin Ratio 0.6 (1.0-2.7) L Urine Color Pale yellow Urine Appearance Cloudy Urine pH 8 (4.5-8.0) Urine Specific [place] 1.010 (1.005-1.035) Urine Protein 2+ (NEGATIVE) H Urine Glucose (UA) Negative (NEGATIVE) Urine Ketones Negative (NEGATIVE) Urine Blood 4+ (NEGATIVE) H Urine Nitrite Negative (NEGATIVE) Urine Bilirubin Negative (NEGATIVE) Urine Urobilinogen Normal MG/DL (0.0-1.0) Urine Leukocyte Esterase 3+ (NEGATIVE) H Urine RBC 10-15 /HPF (0 - 0) H Urine WBC 30-40 /HPF (0 - 0) H Urine Squamous Epithelial Cells None /LPF (NONE/OCC) Urine Bacteria Moderate /HPF (NONE) H Phosphorus Level 2.7 MG/DL (2.5-4.9) Huma Keating MD Oct 03, 2018 11:46
[2018-10-03 12:00] VITALS: BP 147/85
--- NOTE | 2018-10-03 12:37 | GI Initial Consult Note ---
History of Present Illness General Date patient seen: Oct 03, 2018 Time patient seen: 12:33 Reason for Hospitalization: Abnormal Labs Referring physician: Huma Townsend Reason for Consultation: Coffee-ground Present Illness HPI 67-year-old male presents ED for evaluation. [facility] for coffee-ground emesis today. Patient is on ventilator with trach. Patient is nonverbal at baseline. Patient arrives in no signs of distress. No reported cough. No shortness of breath. No other aggravating relieving factors. No other associated symptoms GI consulted for coffee grounds. ROS limited. Patient known to us from prior admission with history of severe esophagitis presents today with reports coffee ground emesis at his facility. The patient endoscopy was performed in July 2018, noted with GERD, diffuse ulcerative esophagitis, peptic esophageal stricture. Labs show leukocytosis and anemia. OB stool is still pending. No active s/sx of N/V/D. Patient is GT dependant. Home Meds Reported Medications Unable to Obtain Medications (UNABLE TO OBTAIN MEDS) 1 Ea Ea 08/01/18 Omeprazole (OMEPRAZOLE) 20 Mg Tablet.dr, 20 MG ORAL DAILY, TAB 05/13/18 Na Phos,M-B/Na Phos,Di-Ba* (FLEET ENEMA*) 133 Ml Enema, 133 ML RECTAL QOD PRN for IF DUCOLAX INEFFETIVE 10/16/17 Bisacodyl (DULCOLAX) 10 Mg Supp.rect, 10 MG RC NEEDED PRN for IF MOM INEFFECTIVE, SUPP 06/01/17 Magnesium Hydroxide* (MILK OF MAGNESIA*) 400 Mg/5 Ml Oral.susp, 30 ML GT HS for IF DOUSATE DOESN'T WORK, ML 06/01/17 Docusate Sodium* (DOCUSATE SODIUM*) 100 Mg Capsule, 100 MG GT DAILY for HOLD FOR LBM, CAP 04/14/17 Multivitamin Liquid* (MULTI-DELYN*) 237 Ml Liquid, 15 ML GT DAILY, ML 04/14/17 Sucralfate* (CARAFATE*) 1 Gm Tablet, 1 GM GT FOUR TIMES A DAY, TAB 03/03/16 Acetaminophen (Acetaminophen) 650 Mg/20.3 Ml Soln, 640 MG GT Q4HR PRN for Prn Headache/Temp > 101, ML 0 Refills 01/19/16 Levothyroxine Sodium* (LEVOTHYROXINE SODIUM*) 50 Mcg Tablet, 50 MCG GT DAILY, TAB Take in the morning on an empty stomach, at least 30 minutes before food. 09/10/14 Med list reviewed/reconciled: Yes Allergies: Coded Allergies: NO KNOWN DRUG ALLERGIES (Verified Allergy, Unknown, 09/11/16) Patient History Limited by: medical condition Review of Systems All Other Systems: limited Physical Exam Vital Signs Date Time Temp Pulse Resp B/P (MAP) Pulse Ox O2 Delivery O2 Flow Rate FiO2 10/02/18 13:27 91 18 133/78 99 Mechanical Ventilator 40 10/02/18 13:50 98.8 10/02/18 16:15 10.0 Sp02 EP Interpretation: reviewed, normal Labs Laboratory Tests Test 10/02/18 14:28 10/02/18 14:40 10/03/18 03:10 White Blood Count 19.9 K/UL (4.8-10.8) H 14.3 K/UL (4.8-10.8) H Red Blood Count 3.70 M/UL (4.70-6.10) L 3.26 M/UL (4.70-6.10) L Hemoglobin 10.2 G/DL (14.2-18.0) L 8.9 G/DL (14.2-18.0) L Hematocrit 31.3 % (42.0-52.0) L 27.5 % (42.0-52.0) L Mean Corpuscular Volume 85 FL (80-99) 84 FL (80-99) Mean Corpuscular Hemoglobin 27.5 PG (27.0-31.0) 27.4 PG (27.0-31.0) Mean Corpuscular Hemoglobin Concent 32.5 G/DL (32.0-36.0) 32.4 G/DL (32.0-36.0) Red Cell Distribution Width 14.5 % (11.6-14.8) 14.8 % (11.6-14.8) Platelet Count 408 K/UL (150-450) 368 K/UL (150-450) Mean Platelet Volume 6.6 FL (6.5-10.1) 6.5 FL (6.5-10.1) Neutrophils (%) (Auto) % (45.0-75.0) 78.0 % (45.0-75.0) H Lymphocytes (%) (Auto) % (20.0-45.0) 11.4 % (20.0-45.0) L Monocytes (%) (Auto) % (1.0-10.0) 7.7 % (1.0-10.0) Eosinophils (%) (Auto) % (0.0-3.0) 2.4 % (0.0-3.0) Basophils (%) (Auto) % (0.0-2.0) 0.6 % (0.0-2.0) Differential Total Cells Counted 100 Neutrophils % (Manual) 93 % (45-75) H Lymphocytes % (Manual) 4 % (20-45) L Monocytes % (Manual) 1 % (1-10) Eosinophils % (Manual) 2 % (0-3) Basophils % (Manual) 0 % (0-2) Band Neutrophils 0 % (0-8) Platelet Estimate Adequate Platelet Morphology Normal Hypochromasia 1+ Sodium Level 136 MMOL/L (136-145) 138 MMOL/L (136-145) Potassium Level 3.7 MMOL/L (3.5-5.1) 3.5 MMOL/L (3.5-5.1) Chloride Level 102 MMOL/L (98-107) 105 MMOL/L (98-107) Carbon Dioxide Level 24 MMOL/L (21-32) 19 MMOL/L (21-32) L Anion Gap 10 mmol/L (5-15) 14 mmol/L (5-15) Blood Urea Nitrogen 34 mg/dL (7-18) H 25 mg/dL (7-18) H Creatinine 1.2 MG/DL (0.55-1.30) 1.2 MG/DL (0.55-1.30) Estimat Glomerular Filtration Rate 59.9 mL/min (>60) 59.9 mL/min (>60) Glucose Level 112 MG/DL (74-106) H 110 MG/DL (74-106) H Lactic Acid Level 1.20 mmol/L (0.4-2.0) Calcium Level 9.5 MG/DL (8.5-10.1) 8.5 MG/DL (8.5-10.1) Total Bilirubin 0.1 MG/DL (0.2-1.0) L Aspartate Amino Transf (AST/SGOT) 18 U/L (15-37) Alanine Aminotransferase (ALT/SGPT) 31 U/L (12-78) Alkaline Phosphatase 134 U/L (46-116) H Total Creatine Kinase 52 U/L (26-308) Creatine Kinase MB 2.5 NG/ML (0.0-3.6) Creatine Kinase MB Relative Index 4.8 Troponin I 0.006 ng/mL (0.000-0.056) Total Protein 8.0 G/DL (6.4-8.2) Albumin 2.9 G/DL (3.4-5.0) L 2.6 G/DL (3.4-5.0) L Globulin 5.1 g/dL Albumin/Globulin Ratio 0.6 (1.0-2.7) L Urine Color Pale yellow Urine Appearance Cloudy Urine pH 8 (4.5-8.0) Urine Specific [place] 1.010 (1.005-1.035) Urine Protein 2+ (NEGATIVE) H Urine Glucose (UA) Negative (NEGATIVE) Urine Ketones Negative (NEGATIVE) Urine Blood 4+ (NEGATIVE) H Urine Nitrite Negative (NEGATIVE) Urine Bilirubin Negative (NEGATIVE) Urine Urobilinogen Normal MG/DL (0.0-1.0) Urine Leukocyte Esterase 3+ (NEGATIVE) H Urine RBC 10-15 /HPF (0 - 0) H Urine WBC 30-40 /HPF (0 - 0) H Urine Squamous Epithelial Cells None /LPF (NONE/OCC) Urine Bacteria Moderate /HPF (NONE) H Phosphorus Level 2.7 MG/DL (2.5-4.9) General Appearance: no apparent distress Head: normocephalic EENT: PERRL/EOMI, normal ENT inspection Neck: supple Respiratory: normal breath sounds, no respiratory distress Cardiovascular: normal rate Gastrointestinal: normal inspection, non tender, soft, normal bowel sounds, non -distended, gt - Clean dry and intact Rectal: deferred Genitourinary: deferred Musculoskeletal: normal inspection, back normal Neurologic: alert, responsive, sensory intact Psychiatric: normal inspection Skin: normal inspection, normal color, no rash, warm/dry, palpation normal, well hydrated Lymphatic: normal inspection, no adenopathy Current Medications Current Medications Medications (Trade) Dose Ordered Sig/Awnda Route PRN Reason Start Time Stop Time Status Last Admin Dose Admin Acetaminophen (Tylenol) 650 mg Q4H PRN ORAL T>100.5 10/02/18 15:45 11/01/18 15:44 Albuterol/ Ipratropium (Albuterol/ Ipratropium) 3 ml Q4H PRN HHN Shortness of Breath 10/02/18 15:45 10/07/18 15:44 Chlorhexidine Gluconate (Jasmin-Hex 2%) 1 applic DAILY@2000 TOPIC 10/02/18 20:00 11/01/18 19:59 10/02/18 20:16 Dextrose (Dextrose 50%) 25 ml Q30M PRN IV Hypoglycemia 10/02/18 16:00 11/01/18 15:48 Dextrose (Dextrose 50%) 50 ml Q30M PRN IV hypoglycemia 10/02/18 16:00 11/01/18 15:59 Levothyroxine Sodium (Synthroid) 50 mcg DAILY GT 10/03/18 09:00 11/02/18 08:59 10/03/18 09:59 Lorazepam (Ativan 2mg/ml 1ml) 2 mg Q2H PRN IV For Anxiety 10/02/18 15:45 10/09/18 15:44 Meropenem 1 gm/ Sodium Chloride 55 ml @ 110 mls/hr Q8HR IVPB 10/03/18 14:00 10/08/18 13:59 Morphine Sulfate (Morphine Sulfate) 4 mg Q4H PRN IVP Severe Pain (Pain Scale 7-10) 10/02/18 15:45 10/09/18 15:44 Ondansetron HCl (Zofran) 4 mg Q6H PRN IVP Nausea & Vomiting 10/02/18 15:45 11/01/18 15:44 Pantoprazole (Protonix) 40 mg DAILY IV 10/03/18 09:00 11/02/18 08:59 10/03/18 09:59 Polyethylene Glycol (Miralax) 17 gm DAILYPRN PRN ORAL Constipation 10/02/18 15:45 11/01/18 15:44 Sucralfate (Carafate) 1 gm FOUR TIMES A DAY GT 10/02/18 18:00 11/01/18 17:59 10/03/18 09:59 GI: Plan Problems: (1) long-term resident (2) Alzheimer's dementia (3) Iron deficiency (4) Upper GI bleed (5) Severe erosive esophagitis (6) Malfunction of gastrostomy tube (7) C. difficile colitis (8) Esophagitis (9) Anemia (10) GI bleed Plan Status post endoscopy in July 2018 noted with GERD, diffuse ulcerative esophagitis, peptic esophageal stricture. Maintain n.p.o. plus IV fluids ppi BID + carafate prn transfusions anemia work up OB stool r/o GI bleed pending monitor H&H, prn transfusions bowel regime fu labs Discussed with Dr. Wilson. Thank you for this patient referral, we will follow. The patient was seen and examined at bedside and all new and available data was reviewed in the patients chart. I agree with the above findings, impression and plan. (Patient seen earlier today. Signature stamp does not reflect patient encounter time.). - MD Sangita CernaWhite Mountain Regional Medical CenterSaskia ANDRE Oct 03, 2018 12:37
[2018-10-03] MEDS: Meropenem 1 GM in NS 55 ML IVPB SCH ×2 (14:49→22:12)
[2018-10-03 16:00] VITALS: BP 113/70
[2018-10-03] MEDS ORDERED: Vancomycin 1 GM in D5W 275 ML IVPB SCH (18:00)
--- NOTE | 2018-10-03 19:45 | History and Physical Report ---
DATE OF ADMISSION: 10/02/2018 CONSULTANTS: 1. Huma Keating M.D. 2. Cesario Daniels M.D. 3. Vitaliy Wilson M.D. CHIEF COMPLAINT: UTI, sepsis, respiratory failure, and gastrointestinal bleed. BRIEF HISTORY: This is a 68-year-old male from [facility] presented with the above-mentioned diagnoses. He is lethargic, found to have UTI, and possible gastrointestinal bleed, sent to [place], admitted to [facility] for further care. Currently, trach, vent, altered, lethargic in bed, and nonverbal. PAST MEDICAL HISTORY: Chronic respiratory failure, hypothyroid, malnutrition, encephalopathy, and Alzheimer's. PAST SURGICAL HISTORY: G-tube, vent, and trach. MEDICATIONS: Include vancomycin, meropenem, levothyroxine, pantoprazole, chlorhexidine, sucralfate, Tylenol, morphine, Zofran, and lorazepam. ALLERGIES: Denies. SOCIAL HISTORY: Unable to obtain secondary to the patient's condition. REVIEW OF SYSTEMS: Unavailable. PHYSICAL EXAMINATION: GENERAL: Trach, vent, altered, lethargic in bed, and nonverbal. VITAL SIGNS: Temperature is 97 degrees, pulse 98, respirations 19, and blood pressure 147/85. CARDIOVASCULAR: No murmur. LUNGS: Poor air exchange. ABDOMEN: Bowel sounds distant. EXTREMITIES: No cyanosis or edema. NEUROLOGIC: The patient is flaccid in bed and not following directions. LABORATORY AND DIAGNOSTIC DATA: White count 14.3 and hemoglobin and hematocrit are 8.9 and 27. Otherwise, CBC is normal. BMP shows CO2 19, BUN 25, glucose 110. Otherwise, normal. Urinalysis show 3+ leukocyte esterase. ASSESSMENT: 1. Respiratory failure. 2. Urinary tract infection. 3. Sepsis. 4. Leukocytosis. 5. History of gastrointestinal bleed. 6. Hypothyroid. 7. Malnutrition. 8. Anemia. 9. Encephalopathy. 10. Alzheimer's. PLAN: 1. Vent per Pulmonary. 2. Antibiotics per Infectious Disease. 3. Pain control. 4. Blood pressure control. 5. Dietary followup. 6. CBC and BMP in the morning. Gato Viveros D.O. DR: HARSH JOB#: [id number] CC:
[2018-10-03 20:00] VITALS: BP 125/72
[2018-10-03] MEDS: Dyna-Hex 2% Top Sol 2oz TOPIC SCH (20:09)
[2018-10-04] VITALS: BP 127/79
[2018-10-04 04:00] VITALS: BP 139/86
[2018-10-04 05:17] LABS: BASOPHILS % (AUTO) 0.6 % (0.0-2.0); EOSINOPHILS % (AUTO) 3.3 % (0.0-3.0); HEMATOCRIT 26.9 % (42.0-52.0); HEMOGLOBIN 8.8 G/DL (14.2-18.0); LYMPHOCYTES % (AUTO) 13.4 % (20.0-45.0); MEAN CORPUSCULAR VOLUME 84 FL (80-99); MONOCYTES % (AUTO) 10.7 % (1.0-10.0); PLATELET COUNT 352 K/UL (150-450); WHITE BLOOD COUNT 11.1 K/UL (4.8-10.8)
[2018-10-04] MEDS: Meropenem 1 GM in NS 55 ML IVPB SCH ×2 (05:35→14:10)
[2018-10-04 05:58] LABS: ALANINE AMINOTRANSFERASE 26 U/L (12-78); ALBUMIN 2.7 G/DL (3.4-5.0); ALBUMIN/GLOBULIN RATIO 0.6 (1.0-2.7); ALKALINE PHOSPHATASE 121 U/L (46-116); ANION GAP 11 mmol/L (5-15); ASPARTATE AMINO TRANSFERASE 23 U/L (15-37); BILIRUBIN,TOTAL 0.2 MG/DL (0.2-1.0); BLOOD UREA NITROGEN 24 mg/dL (7-18); CALCIUM 8.8 MG/DL (8.5-10.1); CARBON DIOXIDE 21 MMOL/L (21-32); CHLORIDE 108 MMOL/L (98-107); CREATININE 1.3 MG/DL (0.55-1.30); SODIUM 140 MMOL/L (136-145)
[2018-10-04 08:00] VITALS: BP 143/68
[2018-10-04] MEDS: Pantoprazole Inj IV SCH (08:53)
[2018-10-04] MEDS: Sucralfate 1gm tab GT SCH ×4 (08:53→20:34)
--- NOTE | 2018-10-04 10:44 | Pulmonolgy Critical Care Note ---
Critical Care - Asmt/Plan Problems: (1) Sepsis (2) Chronic respiratory failure (3) Protein-calorie malnutrition, severe (4) Severe erosive esophagitis (5) Feeding by G-tube (6) Alzheimer's dementia Respiratory: monitor respiratory rate, adjust FIO2, CXR Cardiac: continue to monitor HR/BP Renal: F/U I&O Infectious Disease: check cultures, continue antibiotics Gastrointestinal: continue feedings/current rate Endocrine: monitor blood sugar, check TSH Hematologic: monitor H/H, transfuse if hgb<8.5 Neurologic: keep patient comfortable Affect: PRN ativan Prophylaxis: Heparin Time Spent (Minutes): 40 Notes 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, 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 with: nurses, consultants, family preservation caseworkersenior procurement manager - Objective Last 24 Hour Vital Signs Date Time Temp Pulse Resp B/P (MAP) Pulse Ox O2 Delivery O2 Flow Rate FiO2 10/04/18 09:04 87 20 40 10/04/18 08:00 40 10/04/18 08:00 97.5 69 16 143/68 (93) 100 10/04/18 08:00 71 10/04/18 06:40 84 16 40 10/04/18 05:11 86 16 40 10/04/18 04:00 72 10/04/18 04:00 40 10/04/18 04:00 97.9 79 18 139/86 (103) 99 10/04/18 04:00 Mechanical Ventilator 10/04/18 02:40 79 16 40 10/04/18 02:12 73 17 40 10/04/18 00:00 Mechanical Ventilator 10/04/18 00:00 40 10/04/18 00:00 98.2 86 20 127/79 (95) 94 10/03/18 23:46 89 10/03/18 22:55 80 16 40 10/03/18 22:10 82 17 40 10/03/18 20:00 40 10/03/18 20:00 97.4 78 18 125/72 (89) 100 10/03/18 20:00 Mechanical Ventilator 10/03/18 20:00 74 10/03/18 19:25 75 19 40 10/03/18 17:20 72 20 40 10/03/18 16:00 40 10/03/18 16:00 72 10/03/18 16:00 Mechanical Ventilator 10/03/18 16:00 99.3 74 19 113/70 (84) 100 10/03/18 15:00 65 17 40 10/03/18 12:57 85 26 40 10/03/18 12:00 40 10/03/18 12:00 78 10/03/18 12:00 Mechanical Ventilator 10/03/18 12:00 97.9 72 19 147/85 (105) 98 10/03/18 11:04 90 18 40 Status: awake Condition: critical Lungs: clear Heart: HR/BP stable, HR/BP unstable Abdomen: soft, active bowel sounds Extremities: edema Decubiti: location Micro: Microbiology Date/Time Source Procedure Growth Status 10/02/18 14:30 Blood Blood Culture - Preliminary NO GROWTH AFTER 24 HOURS Resulted 10/02/18 14:15 Blood Blood Culture - Preliminary NO GROWTH AFTER 24 HOURS Resulted 10/02/18 14:40 Urine,Clean Catch Urine Culture - Final Providencia Stuartii Complete 10/02/18 14:40 Rectum VRE Culture - Final Enterococcus Faecalis - Vre Complete Critical Care - Subjective ROS Limited/Unobtainable: Yes Condition: critical EKG Rhythm: Sinus Rhythm FI02: 40 Vent Support Breath Rate: 16 Vent Support Mode: AC Vent Tidal Volume: 600 Sputum Amount: Small PEEP: 5.0 PIP: 28 Tube Feeding Amount: 30 I&O: Intake and Output 10/03/18 10/04/18 18:59 06:59 Intake Total 575 ml 570 ml Output Total 150 ml 800 ml Balance 425 ml -230 ml Free Water 160 ml 100 ml IV Total 55 ml 110 ml Tube Feeding 360 ml 360 ml Output Urine Total 150 ml 800 ml # Voids 1 # Bowel Movements 3 2 CXR: trach intract Labs: Laboratory Tests Test 10/04/18 03:20 White Blood Count 11.1 K/UL (4.8-10.8) H Red Blood Count 3.20 M/UL (4.70-6.10) L Hemoglobin 8.8 G/DL (14.2-18.0) L Hematocrit 26.9 % (42.0-52.0) L Mean Corpuscular Volume 84 FL (80-99) Mean Corpuscular Hemoglobin 27.5 PG (27.0-31.0) Mean Corpuscular Hemoglobin Concent 32.8 G/DL (32.0-36.0) Red Cell Distribution Width 15.0 % (11.6-14.8) H Platelet Count 352 K/UL (150-450) Mean Platelet Volume 6.4 FL (6.5-10.1) L Neutrophils (%) (Auto) 72.0 % (45.0-75.0) Lymphocytes (%) (Auto) 13.4 % (20.0-45.0) L Monocytes (%) (Auto) 10.7 % (1.0-10.0) H Eosinophils (%) (Auto) 3.3 % (0.0-3.0) H Basophils (%) (Auto) 0.6 % (0.0-2.0) Sodium Level 140 MMOL/L (136-145) Potassium Level 4.0 MMOL/L (3.5-5.1) Chloride Level 108 MMOL/L (98-107) H Carbon Dioxide Level 21 MMOL/L (21-32) Anion Gap 11 mmol/L (5-15) Blood Urea Nitrogen 24 mg/dL (7-18) H Creatinine 1.3 MG/DL (0.55-1.30) Estimat Glomerular Filtration Rate 54.6 mL/min (>60) Glucose Level 111 MG/DL (74-106) H Calcium Level 8.8 MG/DL (8.5-10.1) Total Bilirubin 0.2 MG/DL (0.2-1.0) Aspartate Amino Transf (AST/SGOT) 23 U/L (15-37) Alanine Aminotransferase (ALT/SGPT) 26 U/L (12-78) Alkaline Phosphatase 121 U/L (46-116) H Pro-B-Type Natriuretic Peptide 1508 pg/mL (0-125) H Total Protein 7.3 G/DL (6.4-8.2) Albumin 2.7 G/DL (3.4-5.0) L Globulin 4.6 g/dL Albumin/Globulin Ratio 0.6 (1.0-2.7) L Huma Keating MD Oct 04, 2018 10:44
--- NOTE | 2018-10-04 11:17 | Diagnostic Imaging Report ---
Indication: Dyspnea Technique: One view of the chest Comparison: 10/02/2017 Findings: Right perihilar atelectasis or scarring persists. Lungs and pleural spaces are otherwise clear. There is a tracheostomy. Heart size is normal. Findings are unchanged Impression: Unchanged, over one day, findings as above.
--- NOTE | 2018-10-04 11:25 | GI Progress Note ---
Assessment/Plan Problems: (1) GI bleed ICD Codes: K92.2 - Gastrointestinal hemorrhage, unspecified SNOMED: 50809924 (2) Severe protein-calorie malnutrition ICD Codes: E43 - Unspecified severe protein-calorie malnutrition SNOMED: 639466795 (3) Feeding by G-tube ICD Codes: Z93.1 - Gastrostomy status SNOMED: 610542049, 438608851 (4) Esophagitis ICD Codes: K20.9 - Esophagitis SNOMED: 47416304 (5) Anemia ICD Codes: D64.9 - Anemia, unspecified SNOMED: 338104644 (6) Upper GI bleed ICD Codes: K92.2 - Upper gastrointestinal hemorrhage SNOMED: 80219235 (7) Tracheostomy dependence ICD Codes: Z93.0 - Tracheostomy status SNOMED: 975277637, 060136087 (8) Iron deficiency ICD Codes: E61.1 - Iron deficiency SNOMED: 93966647 Status: stable Status Narrative Discussed with Dr. Wilson Assessment/Plan Status post endoscopy in July 2018 noted with GERD, diffuse ulcerative esophagitis, peptic esophageal stricture. Start G-tube feedings ppi BID + carafate prn transfusions anemia work up OB stool r/o GI bleed pending monitor H&H, prn transfusions bowel regime fu labs The patient was seen and examined at bedside and all new and available data was reviewed in the patients chart. I agree with the above findings, impression and plan. (Patient seen earlier today. Signature stamp does not reflect patient encounter time.). - Vitaliy Wilson MD Subjective Subjective Limited Objective Last 24 Hour Vital Signs Date Time Temp Pulse Resp B/P (MAP) Pulse Ox O2 Delivery O2 Flow Rate FiO2 10/04/18 11:01 84 20 40 10/04/18 09:04 87 20 40 10/04/18 08:00 40 10/04/18 08:00 97.5 69 16 143/68 (93) 100 10/04/18 08:00 71 10/04/18 08:00 Mechanical Ventilator 10/04/18 06:40 84 16 40 10/04/18 05:11 86 16 40 10/04/18 04:00 72 10/04/18 04:00 40 10/04/18 04:00 97.9 79 18 139/86 (103) 99 10/04/18 04:00 Mechanical Ventilator 10/04/18 02:40 79 16 40 10/04/18 02:12 73 17 40 10/04/18 00:00 Mechanical Ventilator 10/04/18 00:00 40 10/04/18 00:00 98.2 86 20 127/79 (95) 94 10/03/18 23:46 89 10/03/18 22:55 80 16 40 10/03/18 22:10 82 17 40 10/03/18 20:00 40 10/03/18 20:00 97.4 78 18 125/72 (89) 100 10/03/18 20:00 Mechanical Ventilator 10/03/18 20:00 74 10/03/18 19:25 75 19 40 10/03/18 17:20 72 20 40 10/03/18 16:00 40 10/03/18 16:00 72 10/03/18 16:00 Mechanical Ventilator 10/03/18 16:00 99.3 74 19 113/70 (84) 100 10/03/18 15:00 65 17 40 10/03/18 12:57 85 26 40 10/03/18 12:00 40 10/03/18 12:00 78 10/03/18 12:00 Mechanical Ventilator 10/03/18 12:00 97.9 72 19 147/85 (105) 98 Intake and Output 10/03/18 10/04/18 18:59 06:59 Intake Total 575 ml 570 ml Output Total 150 ml 800 ml Balance 425 ml -230 ml Free Water 160 ml 100 ml IV Total 55 ml 110 ml Tube Feeding 360 ml 360 ml Output Urine Total 150 ml 800 ml # Voids 1 # Bowel Movements 3 2 Laboratory Tests Test 10/04/18 03:20 White Blood Count 11.1 K/UL (4.8-10.8) H Red Blood Count 3.20 M/UL (4.70-6.10) L Hemoglobin 8.8 G/DL (14.2-18.0) L Hematocrit 26.9 % (42.0-52.0) L Mean Corpuscular Volume 84 FL (80-99) Mean Corpuscular Hemoglobin 27.5 PG (27.0-31.0) Mean Corpuscular Hemoglobin Concent 32.8 G/DL (32.0-36.0) Red Cell Distribution Width 15.0 % (11.6-14.8) H Platelet Count 352 K/UL (150-450) Mean Platelet Volume 6.4 FL (6.5-10.1) L Neutrophils (%) (Auto) 72.0 % (45.0-75.0) Lymphocytes (%) (Auto) 13.4 % (20.0-45.0) L Monocytes (%) (Auto) 10.7 % (1.0-10.0) H Eosinophils (%) (Auto) 3.3 % (0.0-3.0) H Basophils (%) (Auto) 0.6 % (0.0-2.0) Sodium Level 140 MMOL/L (136-145) Potassium Level 4.0 MMOL/L (3.5-5.1) Chloride Level 108 MMOL/L (98-107) H Carbon Dioxide Level 21 MMOL/L (21-32) Anion Gap 11 mmol/L (5-15) Blood Urea Nitrogen 24 mg/dL (7-18) H Creatinine 1.3 MG/DL (0.55-1.30) Estimat Glomerular Filtration Rate 54.6 mL/min (>60) Glucose Level 111 MG/DL (74-106) H Calcium Level 8.8 MG/DL (8.5-10.1) Total Bilirubin 0.2 MG/DL (0.2-1.0) Aspartate Amino Transf (AST/SGOT) 23 U/L (15-37) Alanine Aminotransferase (ALT/SGPT) 26 U/L (12-78) Alkaline Phosphatase 121 U/L (46-116) H Pro-B-Type Natriuretic Peptide 1508 pg/mL (0-125) H Total Protein 7.3 G/DL (6.4-8.2) Albumin 2.7 G/DL (3.4-5.0) L Globulin 4.6 g/dL Albumin/Globulin Ratio 0.6 (1.0-2.7) L Height (Feet): 6 Height (Inches): 1.00 Weight (Pounds): 124 General Appearance: WD/WN, no apparent distress, alert Cardiovascular: normal rate Respiratory/Chest: normal breath sounds, no respiratory distress Abdominal Exam: normal bowel sounds, non tender, soft, GT site - Clean dry and intact Extremities: non-tender Emanuel Quesada BUSINESS OPERATIONS ANALYST Oct 04, 2018 11:25
--- NOTE | 2018-10-04 11:39 | General Progress Note ---
Assessment/Plan Problem List: (1) GIB (gastrointestinal bleeding) ICD Codes: K92.2 - Gastrointestinal hemorrhage, unspecified SNOMED: 56624706 (2) UTI (urinary tract infection) ICD Codes: N39.0 - Urinary tract infection, site not specified SNOMED: 63724137 (3) Respiratory failure, [id number] ICD Codes: J96.20 - Respiratory failure, [id number] SNOMED: 78394889 (4) Sepsis ICD Codes: A41.9 - Sepsis, unspecified organism SNOMED: 13320926 (5) Alzheimer's dementia ICD Codes: G30.9 - Alzheimer's disease, unspecified SNOMED: 93673324 Status: unchanged Assessment/Plan vent abx cbc bmp am ltach eval Subjective Constitutional: Reports: weakness Allergies: Coded Allergies: NO KNOWN DRUG ALLERGIES (Verified Allergy, Unknown, 09/11/16) All Systems: reviewed and negative except above Subjective trach vent altered Objective Last 24 Hour Vital Signs Date Time Temp Pulse Resp B/P (MAP) Pulse Ox O2 Delivery O2 Flow Rate FiO2 10/04/18 11:01 84 20 40 10/04/18 09:04 87 20 40 10/04/18 08:00 40 10/04/18 08:00 97.5 69 16 143/68 (93) 100 10/04/18 08:00 71 10/04/18 08:00 Mechanical Ventilator 10/04/18 06:40 84 16 40 10/04/18 05:11 86 16 40 10/04/18 04:00 72 10/04/18 04:00 40 10/04/18 04:00 97.9 79 18 139/86 (103) 99 10/04/18 04:00 Mechanical Ventilator 10/04/18 02:40 79 16 40 10/04/18 02:12 73 17 40 10/04/18 00:00 Mechanical Ventilator 10/04/18 00:00 40 10/04/18 00:00 98.2 86 20 127/79 (95) 94 10/03/18 23:46 89 10/03/18 22:55 80 16 40 10/03/18 22:10 82 17 40 10/03/18 20:00 40 10/03/18 20:00 97.4 78 18 125/72 (89) 100 10/03/18 20:00 Mechanical Ventilator 10/03/18 20:00 74 10/03/18 19:25 75 19 40 10/03/18 17:20 72 20 40 10/03/18 16:00 40 10/03/18 16:00 72 10/03/18 16:00 Mechanical Ventilator 10/03/18 16:00 99.3 74 19 113/70 (84) 100 10/03/18 15:00 65 17 40 10/03/18 12:57 85 26 40 10/03/18 12:00 40 10/03/18 12:00 78 10/03/18 12:00 Mechanical Ventilator 10/03/18 12:00 97.9 72 19 147/85 (105) 98 Intake and Output 10/03/18 10/04/18 18:59 06:59 Intake Total 575 ml 570 ml Output Total 150 ml 800 ml Balance 425 ml -230 ml Free Water 160 ml 100 ml IV Total 55 ml 110 ml Tube Feeding 360 ml 360 ml Output Urine Total 150 ml 800 ml # Voids 1 # Bowel Movements 3 2 Laboratory Tests 10/04/18 03:20: White Blood Count 11.1H, Red Blood Count 3.20L, Hemoglobin 8.8L, Hematocrit 26.9L, Mean Corpuscular Volume 84, Mean Corpuscular Hemoglobin 27.5, Mean Corpuscular Hemoglobin Concent 32.8, Red Cell Distribution Width 15.0H, Platelet Count 352, Mean Platelet Volume 6.4L, Neutrophils (%) (Auto) 72.0, Lymphocytes (%) (Auto) 13.4L, Monocytes (%) (Auto) 10.7H, Eosinophils (%) (Auto ) 3.3H, Basophils (%) (Auto) 0.6, Sodium Level 140, Potassium Level 4.0, Chloride Level 108H, Carbon Dioxide Level 21, Anion Gap 11, Blood Urea Nitrogen 24H, Creatinine 1.3, Estimat Glomerular Filtration Rate 54.6, Glucose Level 111H , Calcium Level 8.8, Total Bilirubin 0.2, Aspartate Amino Transf (AST/SGOT) 23, Alanine Aminotransferase (ALT/SGPT) 26, Alkaline Phosphatase 121H, Pro-B-Type Natriuretic Peptide 1508H, Total Protein 7.3, Albumin 2.7L, Globulin 4.6, Albumin/Globulin Ratio 0.6L Height (Feet): 6 Height (Inches): 1.00 Weight (Pounds): 124 General Appearance: lethargic EENT: normal ENT inspection Neck: normal alignment Cardiovascular: normal peripheral pulses, normal rate, regular rhythm Respiratory/Chest: chest wall non-tender, lungs clear, normal breath sounds Abdomen: normal bowel sounds, non tender, soft Extremities: normal inspection Edema: no edema noted Arm (L), no edema noted Arm (R), no edema noted Leg (L), no edema noted Leg (R), no edema noted Pedal (L), no edema noted Pedal (R), no edema noted Generalized Neurologic: motor weakness Skin: normal pigmentation, warm/dry Gato Viveros DO Oct 04, 2018 11:39
[2018-10-04 12:00] VITALS: BP 122/69
--- NOTE | 2018-10-04 15:45 | Infectious Diseases Prog Note ---
Assessment/Plan Assessment/Plan Abx: IV Vancomycin 10/02- Cefepime 10/02- Assessment: Probable UTI -u.a wbc 30-40, nit neg, leuk +3; ucx 40-50k P, stuarti, probabe AMP-C (S Ceftriaxone, Zosyn, Meropenem; R Ceftazidime, Ancef) Afebrile Leukocytosis, improving -CXR: No acute process. Findings as noted Recurreng UGIB Hx of ESBL UTI 07/2018, s/p Rx 08/01/18 UCxESBL Proteus Sen to erta, zosyn and bactrim; 08/02/18 UCx ESBL P.mirabilis Hx of ESBL and S. maltophilia PNA 07/2018, s/p Rx -sp cx ESBL P.mirabils (S Bactrim), S. maltophilia (S Bactrim) Hx Constipation Chronic respiratory failure trach/vent dependant Hypothyroidism GERD Hypertension Hx C. diff Dysphagia s/p G-tube Anemia. CVA/TIA w/ hemiplegia functional quadriplegia chronic encephalopathy CAD CHF Dm2 GIB s/p multiple EGDs in the past hx of severe esophagitis schizoaffective disease [facility] resident multiple admissions Plan: -Switch Meropenem #2/5-7 to Ertapenem for probable AMpc-C UTI -10/03 SP IV Vancomycin #2 and Cefepime #2 -08/09/18 SP Bactrim #7 -08/03 SP Vancomycin and Cefepime #3 -08/01/18 SP Ceftriaxone x1 -f/u cx -Monitor CBC/CMP, temperatures -peg/trach care -aspiration precautions Thank you for this consultation. Will continue to follow along with you. Discussed with RN. Subjective Allergies: Coded Allergies: NO KNOWN DRUG ALLERGIES (Verified Allergy, Unknown, 09/11/16) Subjective afebrile leukocytosis improving Bcx NTD Objective Vital Signs Last 24 Hour Vital Signs Date Time Temp Pulse Resp B/P (MAP) Pulse Ox O2 Delivery O2 Flow Rate FiO2 10/04/18 14:34 87 20 40 10/04/18 12:54 82 20 40 10/04/18 12:00 65 10/04/18 12:00 98.2 76 20 122/69 (86) 100 10/04/18 12:00 Mechanical Ventilator 10/04/18 12:00 40 10/04/18 11:01 84 20 40 10/04/18 09:04 87 20 40 10/04/18 08:00 40 10/04/18 08:00 97.5 69 16 143/68 (93) 100 10/04/18 08:00 71 10/04/18 08:00 Mechanical Ventilator 10/04/18 06:40 84 16 40 10/04/18 05:11 86 16 40 10/04/18 04:00 72 10/04/18 04:00 40 10/04/18 04:00 97.9 79 18 139/86 (103) 99 10/04/18 04:00 Mechanical Ventilator 10/04/18 02:40 79 16 40 10/04/18 02:12 73 17 40 10/04/18 00:00 Mechanical Ventilator 10/04/18 00:00 40 10/04/18 00:00 98.2 86 20 127/79 (95) 94 10/03/18 23:46 89 10/03/18 22:55 80 16 40 10/03/18 22:10 82 17 40 10/03/18 20:00 40 10/03/18 20:00 97.4 78 18 125/72 (89) 100 10/03/18 20:00 Mechanical Ventilator 10/03/18 20:00 74 10/03/18 19:25 75 19 40 10/03/18 17:20 72 20 40 10/03/18 16:00 40 10/03/18 16:00 72 10/03/18 16:00 Mechanical Ventilator 10/03/18 16:00 99.3 74 19 113/70 (84) 100 Height (Feet): 6 Height (Inches): 1.00 Weight (Pounds): 124 Objective General Appearance: alert, mild distress, Chronically Ill Neck: limited range of motion Respiratory: lungs clear Cardiovascular #1: normal peripheral pulses, regular rate, rhythm Gastrointestinal: normal inspection, soft Musculoskeletal: other - contracted Neurologic: motor weakness Microbiology Date/Time Source Procedure Growth Status 10/02/18 14:30 Blood Blood Culture - Preliminary NO GROWTH AFTER 24 HOURS Resulted 10/02/18 14:15 Blood Blood Culture - Preliminary NO GROWTH AFTER 24 HOURS Resulted 10/02/18 14:40 Nasal Nares MRSA Culture - Final NO METHICILLIN RESISTANT STAPH AUREUS... Complete 10/02/18 14:40 Urine,Clean Catch Urine Culture - Final Providencia Stuartii Complete 10/02/18 14:40 Rectum VRE Culture - Final Enterococcus Faecalis - Vre Complete Laboratory Tests Test 10/04/18 03:20 White Blood Count 11.1 K/UL (4.8-10.8) H Red Blood Count 3.20 M/UL (4.70-6.10) L Hemoglobin 8.8 G/DL (14.2-18.0) L Hematocrit 26.9 % (42.0-52.0) L Mean Corpuscular Volume 84 FL (80-99) Mean Corpuscular Hemoglobin 27.5 PG (27.0-31.0) Mean Corpuscular Hemoglobin Concent 32.8 G/DL (32.0-36.0) Red Cell Distribution Width 15.0 % (11.6-14.8) H Platelet Count 352 K/UL (150-450) Mean Platelet Volume 6.4 FL (6.5-10.1) L Neutrophils (%) (Auto) 72.0 % (45.0-75.0) Lymphocytes (%) (Auto) 13.4 % (20.0-45.0) L Monocytes (%) (Auto) 10.7 % (1.0-10.0) H Eosinophils (%) (Auto) 3.3 % (0.0-3.0) H Basophils (%) (Auto) 0.6 % (0.0-2.0) Sodium Level 140 MMOL/L (136-145) Potassium Level 4.0 MMOL/L (3.5-5.1) Chloride Level 108 MMOL/L (98-107) H Carbon Dioxide Level 21 MMOL/L (21-32) Anion Gap 11 mmol/L (5-15) Blood Urea Nitrogen 24 mg/dL (7-18) H Creatinine 1.3 MG/DL (0.55-1.30) Estimat Glomerular Filtration Rate 54.6 mL/min (>60) Glucose Level 111 MG/DL (74-106) H Calcium Level 8.8 MG/DL (8.5-10.1) Total Bilirubin 0.2 MG/DL (0.2-1.0) Aspartate Amino Transf (AST/SGOT) 23 U/L (15-37) Alanine Aminotransferase (ALT/SGPT) 26 U/L (12-78) Alkaline Phosphatase 121 U/L (46-116) H Pro-B-Type Natriuretic Peptide 1508 pg/mL (0-125) H Total Protein 7.3 G/DL (6.4-8.2) Albumin 2.7 G/DL (3.4-5.0) L Globulin 4.6 g/dL Albumin/Globulin Ratio 0.6 (1.0-2.7) L Current Medications Medications (Trade) Dose Ordered Sig/Wanda Route PRN Reason Start Time Stop Time Status Last Admin Dose Admin Acetaminophen (Tylenol) 650 mg Q4H PRN ORAL T>100.5 10/02/18 15:45 11/01/18 15:44 Albuterol/ Ipratropium (Albuterol/ Ipratropium) 3 ml Q4H PRN HHN Shortness of Breath 10/02/18 15:45 10/07/18 15:44 Chlorhexidine Gluconate (Jasmin-Hex 2%) 1 applic DAILY@2000 TOPIC 10/02/18 20:00 11/01/18 19:59 10/03/18 20:09 Dextrose (Dextrose 50%) 25 ml Q30M PRN IV Hypoglycemia 10/02/18 16:00 11/01/18 15:48 Dextrose (Dextrose 50%) 50 ml Q30M PRN IV hypoglycemia 10/02/18 16:00 11/01/18 15:59 Levothyroxine Sodium (Synthroid) 50 mcg DAILY GT 10/03/18 09:00 11/02/18 08:59 10/04/18 08:53 Lorazepam (Ativan 2mg/ml 1ml) 2 mg Q2H PRN IV For Anxiety 10/02/18 15:45 10/09/18 15:44 Meropenem 1 gm/ Sodium Chloride 55 ml @ 110 mls/hr Q8HR IVPB 10/03/18 14:00 10/08/18 13:59 10/04/18 14:10 Morphine Sulfate (Morphine Sulfate) 4 mg Q4H PRN IVP Severe Pain (Pain Scale 7-10) 10/02/18 15:45 10/09/18 15:44 Ondansetron HCl (Zofran) 4 mg Q6H PRN IVP Nausea & Vomiting 10/02/18 15:45 11/01/18 15:44 Pantoprazole (Protonix) 40 mg DAILY IV 10/03/18 09:00 11/02/18 08:59 10/04/18 08:53 Polyethylene Glycol (Miralax) 17 gm DAILYPRN PRN ORAL Constipation 10/02/18 15:45 11/01/18 15:44 Sucralfate (Carafate) 1 gm FOUR TIMES A DAY GT 10/02/18 18:00 11/01/18 17:59 10/04/18 13:18 Lisy Lai M.D. Oct 04, 2018 15:45
[2018-10-04 16:00] VITALS: BP 119/62
[2018-10-04] MEDS ORDERED: Tubing IV Secondary IV ONE (16:31)
[2018-10-04] MEDS ORDERED: NS 275ml ONE (16:31)
[2018-10-04 20:00] VITALS: BP 142/85
[2018-10-04] MEDS: Ertapenem 1 GM in NS 55 ML IVPB SCH (20:33)
[2018-10-04] MEDS: Dyna-Hex 2% Top Sol 2oz TOPIC SCH (20:34)
[2018-10-05] VITALS: BP 137/75
[2018-10-05 04:00] VITALS: BP 132/79
[2018-10-05 05:52] LABS: BASOPHILS % (AUTO) 0.6 % (0.0-2.0); EOSINOPHILS % (AUTO) 5.7 % (0.0-3.0); HEMATOCRIT 27.7 % (42.0-52.0); HEMOGLOBIN 9.1 G/DL (14.2-18.0); LYMPHOCYTES % (AUTO) 16.3 % (20.0-45.0); MEAN CORPUSCULAR VOLUME 84 FL (80-99); MONOCYTES % (AUTO) 10.4 % (1.0-10.0); PLATELET COUNT 369 K/UL (150-450); RED BLOOD COUNT 3.28 M/UL (4.70-6.10); RED CELL DISTRIBUTION WIDTH 14.9 % (11.6-14.8); WHITE BLOOD COUNT 9.1 K/UL (4.8-10.8)
[2018-10-05 06:08] LABS: ANION GAP 11 mmol/L (5-15); BLOOD UREA NITROGEN 22 mg/dL (7-18); CALCIUM 9.4 MG/DL (8.5-10.1); CARBON DIOXIDE 20 MMOL/L (21-32); CHLORIDE 106 MMOL/L (98-107); CREATININE 1.3 MG/DL (0.55-1.30); POTASSIUM 4.1 MMOL/L (3.5-5.1); SODIUM 137 MMOL/L (136-145)
--- NOTE | 2018-10-05 07:40 | General Progress Note ---
Assessment/Plan Problem List: (1) snf resident ICD Codes: Z59.3 - Problems related to living in residential institution SNOMED: 217003614 (2) Alzheimer's dementia ICD Codes: G30.9 - Alzheimer's disease, unspecified SNOMED: 23210339 (3) Iron deficiency ICD Codes: E61.1 - Iron deficiency SNOMED: 88021215 (4) Upper GI bleed ICD Codes: K92.2 - Upper gastrointestinal hemorrhage SNOMED: 90747185 (5) Severe erosive esophagitis (6) Anemia ICD Codes: D64.9 - Anemia, unspecified SNOMED: 477948126 (7) Feeding by G-tube ICD Codes: Z93.1 - Gastrostomy status SNOMED: 033560582, 839660597 Assessment/Plan Status post endoscopy in July 2018 noted with GERD, diffuse ulcerative esophagitis, peptic esophageal stricture. G-tube feedings ppi BID + carafate prn transfusions anemia work up OB stool r/o GI bleed pending monitor H&H, prn transfusions bowel regime fu labs Subjective ROS Limited/Unobtainable: No Allergies: Coded Allergies: NO KNOWN DRUG ALLERGIES (Verified Allergy, Unknown, 09/11/16) Objective Last 24 Hour Vital Signs Date Time Temp Pulse Resp B/P (MAP) Pulse Ox O2 Delivery O2 Flow Rate FiO2 10/05/18 05:20 68 16 Mechanical Ventilator 40 10/05/18 05:18 60 16 40 10/05/18 04:00 72 10/05/18 04:00 40 10/05/18 04:00 Mechanical Ventilator 10/05/18 04:00 98.1 80 18 132/79 (96) 100 10/05/18 03:30 62 16 40 10/05/18 01:30 64 16 40 10/05/18 00:00 97.8 81 16 137/75 (95) 100 10/05/18 00:00 Mechanical Ventilator 10/05/18 00:00 73 10/05/18 00:00 40 10/04/18 23:12 63 16 40 10/04/18 21:17 68 16 40 10/04/18 20:00 40 10/04/18 20:00 Mechanical Ventilator 10/04/18 20:00 70 10/04/18 20:00 97.9 93 16 142/85 (104) 100 10/04/18 19:14 64 16 40 10/04/18 17:14 69 16 40 10/04/18 16:00 40 10/04/18 16:00 97.7 68 16 119/62 (81) 100 10/04/18 16:00 Mechanical Ventilator 10/04/18 16:00 61 10/04/18 14:34 87 20 40 10/04/18 12:54 82 20 40 10/04/18 12:00 65 10/04/18 12:00 98.2 76 20 122/69 (86) 100 10/04/18 12:00 Mechanical Ventilator 10/04/18 12:00 40 10/04/18 11:01 84 20 40 10/04/18 09:04 87 20 40 10/04/18 08:00 40 10/04/18 08:00 97.5 69 16 143/68 (93) 100 10/04/18 08:00 71 10/04/18 08:00 Mechanical Ventilator Intake and Output 10/04/18 10/05/18 19:00 07:00 Intake Total 505 ml 515 ml Output Total 500 ml 600 ml Balance 5 ml -85 ml Free Water 100 ml IV Total 55 ml 55 ml Tube Feeding 300 ml 360 ml Other 150 ml Output Urine Total 500 ml 600 ml Laboratory Tests 10/05/18 05:07: White Blood Count 9.1, Red Blood Count 3.28L, Hemoglobin 9.1L, Hematocrit 27.7L , Mean Corpuscular Volume 84, Mean Corpuscular Hemoglobin 27.7, Mean Corpuscular Hemoglobin Concent 32.8, Red Cell Distribution Width 14.9H, Platelet Count 369, Mean Platelet Volume 6.4L, Neutrophils (%) (Auto) 67.0, Lymphocytes (%) (Auto) 16.3L, Monocytes (%) (Auto) 10.4H, Eosinophils (%) (Auto ) 5.7H, Basophils (%) (Auto) 0.6, Sodium Level 137, Potassium Level 4.1, Chloride Level 106, Carbon Dioxide Level 20L, Anion Gap 11, Blood Urea Nitrogen 22H, Creatinine 1.3, Estimat Glomerular Filtration Rate 54.6, Glucose Level 93, Calcium Level 9.4 Height (Feet): 6 Height (Inches): 1.00 Weight (Pounds): 124 General Appearance: lethargic EENT: normal ENT inspection Neck: supple Cardiovascular: normal rate Respiratory/Chest: decreased breath sounds Abdomen: normal bowel sounds, non tender, soft Extremities: non-tender Vitaliy Wilson MD Oct 05, 2018 07:40
[2018-10-05 08:00] VITALS: BP 133/69
[2018-10-05] MEDS: Sucralfate 1gm tab GT SCH ×4 (08:48→21:17)
[2018-10-05] MEDS: Pantoprazole Inj IV SCH (08:48)
--- NOTE | 2018-10-05 08:51 | Infectious Diseases Prog Note ---
Assessment/Plan Assessment/Plan Abx: IV Vancomycin 10/02- Cefepime 10/02- Assessment: Probable UTI -u.a wbc 30-40, nit neg, leuk +3; ucx 40-50k P, stuarti, probabe AMP-C (S Ceftriaxone, Zosyn, Meropenem; R Ceftazidime, Ancef) Afebrile Leukocytosis, improving -CXR: No acute process. Findings as noted Recurreng UGIB Hx of ESBL UTI 07/2018, s/p Rx 08/01/18 UCxESBL Proteus Sen to erta, zosyn and bactrim; 08/02/18 UCx ESBL P.mirabilis Hx of ESBL and S. maltophilia PNA 07/2018, s/p Rx -sp cx ESBL P.mirabils (S Bactrim), S. maltophilia (S Bactrim) Hx Constipation Chronic respiratory failure trach/vent dependant Hypothyroidism GERD Hypertension Hx C. diff Dysphagia s/p G-tube Anemia. 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 Subjective Allergies: Coded Allergies: NO KNOWN DRUG ALLERGIES (Verified Allergy, Unknown, 09/11/16) Subjective Afebrile Leukocytosis resolved Objective Vital Signs Last 24 Hour Vital Signs Date Time Temp Pulse Resp B/P (MAP) Pulse Ox O2 Delivery O2 Flow Rate FiO2 10/05/18 06:34 62 16 40 10/05/18 05:20 68 16 Mechanical Ventilator 40 10/05/18 05:18 60 16 40 10/05/18 04:00 72 10/05/18 04:00 40 10/05/18 04:00 Mechanical Ventilator 10/05/18 04:00 98.1 80 18 132/79 (96) 100 10/05/18 03:30 62 16 40 10/05/18 01:30 64 16 40 10/05/18 00:00 97.8 81 16 137/75 (95) 100 10/05/18 00:00 Mechanical Ventilator 10/05/18 00:00 73 10/05/18 00:00 40 10/04/18 23:12 63 16 40 10/04/18 21:17 68 16 40 10/04/18 20:00 40 10/04/18 20:00 Mechanical Ventilator 10/04/18 20:00 70 10/04/18 20:00 97.9 93 16 142/85 (104) 100 10/04/18 19:14 64 16 40 10/04/18 17:14 69 16 40 10/04/18 16:00 40 10/04/18 16:00 97.7 68 16 119/62 (81) 100 10/04/18 16:00 Mechanical Ventilator 10/04/18 16:00 61 10/04/18 14:34 87 20 40 10/04/18 12:54 82 20 40 10/04/18 12:00 65 10/04/18 12:00 98.2 76 20 122/69 (86) 100 10/04/18 12:00 Mechanical Ventilator 10/04/18 12:00 40 10/04/18 11:01 84 20 40 10/04/18 09:04 87 20 40 Height (Feet): 6 Height (Inches): 1.00 Weight (Pounds): 124 Objective General Appearance: alert, mild distress, Chronically Ill, On vent 40% Respiratory: lungs clear Cardiovascular: normal peripheral pulses, regular rate, rhythm Gastrointestinal: soft, ND Neurologic: motor weakness Microbiology Date/Time Source Procedure Growth Status 10/02/18 14:30 Blood Blood Culture - Preliminary NO GROWTH AFTER 48 HOURS Resulted 10/02/18 14:15 Blood Blood Culture - Preliminary NO GROWTH AFTER 48 HOURS Resulted 10/02/18 14:40 Nasal Nares MRSA Culture - Final NO METHICILLIN RESISTANT STAPH AUREUS... Complete 10/02/18 14:40 Urine,Clean Catch Urine Culture - Final Providencia Stuartii Complete 10/02/18 14:40 Rectum VRE Culture - Final Enterococcus Faecalis - Vre Complete Laboratory Tests Test 10/05/18 05:07 White Blood Count 9.1 K/UL (4.8-10.8) Red Blood Count 3.28 M/UL (4.70-6.10) L Hemoglobin 9.1 G/DL (14.2-18.0) L Hematocrit 27.7 % (42.0-52.0) L Mean Corpuscular Volume 84 FL (80-99) Mean Corpuscular Hemoglobin 27.7 PG (27.0-31.0) Mean Corpuscular Hemoglobin Concent 32.8 G/DL (32.0-36.0) Red Cell Distribution Width 14.9 % (11.6-14.8) H Platelet Count 369 K/UL (150-450) Mean Platelet Volume 6.4 FL (6.5-10.1) L Neutrophils (%) (Auto) 67.0 % (45.0-75.0) Lymphocytes (%) (Auto) 16.3 % (20.0-45.0) L Monocytes (%) (Auto) 10.4 % (1.0-10.0) H Eosinophils (%) (Auto) 5.7 % (0.0-3.0) H Basophils (%) (Auto) 0.6 % (0.0-2.0) Sodium Level 137 MMOL/L (136-145) Potassium Level 4.1 MMOL/L (3.5-5.1) Chloride Level 106 MMOL/L (98-107) Carbon Dioxide Level 20 MMOL/L (21-32) L Anion Gap 11 mmol/L (5-15) Blood Urea Nitrogen 22 mg/dL (7-18) H Creatinine 1.3 MG/DL (0.55-1.30) Estimat Glomerular Filtration Rate 54.6 mL/min (>60) Glucose Level 93 MG/DL (74-106) Calcium Level 9.4 MG/DL (8.5-10.1) Current Medications Medications (Trade) Dose Ordered Sig/Wanda Route PRN Reason Start Time Stop Time Status Last Admin Dose Admin Acetaminophen (Tylenol) 650 mg Q4H PRN ORAL T>100.5 10/02/18 15:45 11/01/18 15:44 Albuterol/ Ipratropium (Albuterol/ Ipratropium) 3 ml Q4H PRN HHN Shortness of Breath 10/02/18 15:45 10/07/18 15:44 Chlorhexidine Gluconate (Jasmin-Hex 2%) 1 applic DAILY@2000 TOPIC 10/02/18 20:00 11/01/18 19:59 10/04/18 20:34 Dextrose (Dextrose 50%) 25 ml Q30M PRN IV Hypoglycemia 10/02/18 16:00 11/01/18 15:48 Dextrose (Dextrose 50%) 50 ml Q30M PRN IV hypoglycemia 10/02/18 16:00 11/01/18 15:59 Ertapenem 1 gm/ Sodium Chloride 55 ml @ 110 mls/hr Q24H IVPB 10/04/18 20:00 10/09/18 19:59 10/04/18 20:33 Levothyroxine Sodium (Synthroid) 50 mcg DAILY GT 10/03/18 09:00 11/02/18 08:59 10/04/18 08:53 Lorazepam (Ativan 2mg/ml 1ml) 2 mg Q2H PRN IV For Anxiety 10/02/18 15:45 10/09/18 15:44 Morphine Sulfate (Morphine Sulfate) 4 mg Q4H PRN IVP Severe Pain (Pain Scale 7-10) 10/02/18 15:45 10/09/18 15:44 Ondansetron HCl (Zofran) 4 mg Q6H PRN IVP Nausea & Vomiting 10/02/18 15:45 11/01/18 15:44 Pantoprazole (Protonix) 40 mg DAILY IV 10/03/18 09:00 11/02/18 08:59 10/04/18 08:53 Polyethylene Glycol (Miralax) 17 gm DAILYPRN PRN ORAL Constipation 10/02/18 15:45 11/01/18 15:44 Sucralfate (Carafate) 1 gm FOUR TIMES A DAY GT 10/02/18 18:00 11/01/18 17:59 10/04/18 20:34 John Fiore MD Oct 05, 2018 08:51
--- NOTE | 2018-10-05 09:06 | General Progress Note ---
Assessment/Plan Problem List: (1) GIB (gastrointestinal bleeding) ICD Codes: K92.2 - Gastrointestinal hemorrhage, unspecified SNOMED: 36932424 (2) UTI (urinary tract infection) ICD Codes: N39.0 - Urinary tract infection, site not specified SNOMED: 02255378 (3) Respiratory failure, [id number] ICD Codes: J96.20 - Respiratory failure, [id number] SNOMED: 45096797 (4) Sepsis ICD Codes: A41.9 - Sepsis, unspecified organism SNOMED: 40069670 (5) Alzheimer's dementia ICD Codes: G30.9 - Alzheimer's disease, unspecified SNOMED: 29375792 Status: stable, progressing Assessment/Plan vent abx cbc bmp am ltach eval Subjective Constitutional: Reports: weakness Allergies: Coded Allergies: NO KNOWN DRUG ALLERGIES (Verified Allergy, Unknown, 09/11/16) All Systems: reviewed and negative except above Subjective trach vent altered Objective Last 24 Hour Vital Signs Date Time Temp Pulse Resp B/P (MAP) Pulse Ox O2 Delivery O2 Flow Rate FiO2 10/05/18 08:00 40 10/05/18 08:00 98.2 76 22 133/69 (90) 100 10/05/18 08:00 Mechanical Ventilator 10/05/18 06:34 62 16 40 10/05/18 05:20 68 16 Mechanical Ventilator 40 10/05/18 05:18 60 16 40 10/05/18 04:00 72 10/05/18 04:00 40 10/05/18 04:00 Mechanical Ventilator 10/05/18 04:00 98.1 80 18 132/79 (96) 100 10/05/18 03:30 62 16 40 10/05/18 01:30 64 16 40 10/05/18 00:00 97.8 81 16 137/75 (95) 100 10/05/18 00:00 Mechanical Ventilator 10/05/18 00:00 73 10/05/18 00:00 40 10/04/18 23:12 63 16 40 10/04/18 21:17 68 16 40 10/04/18 20:00 40 10/04/18 20:00 Mechanical Ventilator 10/04/18 20:00 70 10/04/18 20:00 97.9 93 16 142/85 (104) 100 10/04/18 19:14 64 16 40 10/04/18 17:14 69 16 40 10/04/18 16:00 40 10/04/18 16:00 97.7 68 16 119/62 (81) 100 10/04/18 16:00 Mechanical Ventilator 10/04/18 16:00 61 10/04/18 14:34 87 20 40 10/04/18 12:54 82 20 40 10/04/18 12:00 65 10/04/18 12:00 98.2 76 20 122/69 (86) 100 10/04/18 12:00 Mechanical Ventilator 10/04/18 12:00 40 10/04/18 11:01 84 20 40 Intake and Output 10/04/18 10/05/18 19:00 07:00 Intake Total 505 ml 515 ml Output Total 500 ml 600 ml Balance 5 ml -85 ml Free Water 100 ml IV Total 55 ml 55 ml Tube Feeding 300 ml 360 ml Other 150 ml Output Urine Total 500 ml 600 ml Laboratory Tests 10/05/18 05:07: White Blood Count 9.1, Red Blood Count 3.28L, Hemoglobin 9.1L, Hematocrit 27.7L , Mean Corpuscular Volume 84, Mean Corpuscular Hemoglobin 27.7, Mean Corpuscular Hemoglobin Concent 32.8, Red Cell Distribution Width 14.9H, Platelet Count 369, Mean Platelet Volume 6.4L, Neutrophils (%) (Auto) 67.0, Lymphocytes (%) (Auto) 16.3L, Monocytes (%) (Auto) 10.4H, Eosinophils (%) (Auto ) 5.7H, Basophils (%) (Auto) 0.6, Sodium Level 137, Potassium Level 4.1, Chloride Level 106, Carbon Dioxide Level 20L, Anion Gap 11, Blood Urea Nitrogen 22H, Creatinine 1.3, Estimat Glomerular Filtration Rate 54.6, Glucose Level 93, Calcium Level 9.4 Height (Feet): 6 Height (Inches): 1.00 Weight (Pounds): 124 General Appearance: lethargic EENT: normal ENT inspection Neck: normal alignment Cardiovascular: normal peripheral pulses, normal rate, regular rhythm Respiratory/Chest: chest wall non-tender, lungs clear, normal breath sounds Abdomen: normal bowel sounds, non tender, soft Extremities: normal inspection Edema: no edema noted Arm (L), no edema noted Arm (R), no edema noted Leg (L), no edema noted Leg (R), no edema noted Pedal (L), no edema noted Pedal (R), no edema noted Generalized Neurologic: motor weakness Skin: normal pigmentation, warm/dry Gato Viveros DO Oct 05, 2018 09:06
--- NOTE | 2018-10-05 09:11 | Pulmonolgy Critical Care Note ---
Critical Care - Asmt/Plan Problems: (1) Sepsis (2) Chronic respiratory failure (3) Protein-calorie malnutrition, severe (4) Severe erosive esophagitis (5) Feeding by G-tube (6) Alzheimer's dementia Respiratory: monitor respiratory rate, adjust FIO2, CXR Cardiac: continue to monitor HR/BP Renal: F/U I&O, check electrolytes Infectious Disease: check cultures, continue antibiotics Gastrointestinal: continue feedings/current rate, hold feedings Endocrine: monitor blood sugar, check TSH, check HgA1C Hematologic: transfuse if hgb<8.5 Neurologic: PRN Ativan, keep patient comfortable Affect: PRN ativan Notes Reviewed: spoon maker Discussed with: nurses, consultants, behavioral health case managerreconciliation manager - Objective Last 24 Hour Vital Signs Date Time Temp Pulse Resp B/P (MAP) Pulse Ox O2 Delivery O2 Flow Rate FiO2 10/05/18 08:00 40 10/05/18 08:00 98.2 76 22 133/69 (90) 100 10/05/18 08:00 Mechanical Ventilator 10/05/18 06:34 62 16 40 10/05/18 05:20 68 16 Mechanical Ventilator 40 10/05/18 05:18 60 16 40 10/05/18 04:00 72 10/05/18 04:00 40 10/05/18 04:00 Mechanical Ventilator 10/05/18 04:00 98.1 80 18 132/79 (96) 100 10/05/18 03:30 62 16 40 10/05/18 01:30 64 16 40 10/05/18 00:00 97.8 81 16 137/75 (95) 100 10/05/18 00:00 Mechanical Ventilator 10/05/18 00:00 73 10/05/18 00:00 40 10/04/18 23:12 63 16 40 10/04/18 21:17 68 16 40 10/04/18 20:00 40 10/04/18 20:00 Mechanical Ventilator 10/04/18 20:00 70 10/04/18 20:00 97.9 93 16 142/85 (104) 100 10/04/18 19:14 64 16 40 10/04/18 17:14 69 16 40 10/04/18 16:00 40 10/04/18 16:00 97.7 68 16 119/62 (81) 100 10/04/18 16:00 Mechanical Ventilator 10/04/18 16:00 61 10/04/18 14:34 87 20 40 10/04/18 12:54 82 20 40 10/04/18 12:00 65 10/04/18 12:00 98.2 76 20 122/69 (86) 100 10/04/18 12:00 Mechanical Ventilator 10/04/18 12:00 40 10/04/18 11:01 84 20 40 Status: awake Condition: critical HEENT: atraumatic Neck: full ROM Lungs: clear Heart: HR/BP stable Abdomen: soft, non-tender, feeding tube Extremities: no C/C/E Decubiti: location Micro: Microbiology Date/Time Source Procedure Growth Status 10/02/18 14:30 Blood Blood Culture - Preliminary NO GROWTH AFTER 48 HOURS Resulted 10/02/18 14:15 Blood Blood Culture - Preliminary NO GROWTH AFTER 48 HOURS Resulted 10/02/18 14:40 Nasal Nares MRSA Culture - Final NO METHICILLIN RESISTANT STAPH AUREUS... Complete 10/02/18 14:40 Urine,Clean Catch Urine Culture - Final Providencia Stuartii Complete 10/02/18 14:40 Rectum VRE Culture - Final Enterococcus Faecalis - Vre Complete Critical Care - Subjective ROS Limited/Unobtainable: Yes Condition: critical FI02: 40 Vent Support Breath Rate: 16 Vent Support Mode: AC Vent Tidal Volume: 600 Sputum Amount: Small PEEP: 5.0 PIP: 32 Tube Feeding Amount: 30 I&O: Intake and Output 10/04/18 10/05/18 19:00 07:00 Intake Total 505 ml 515 ml Output Total 500 ml 600 ml Balance 5 ml -85 ml Free Water 100 ml IV Total 55 ml 55 ml Tube Feeding 300 ml 360 ml Other 150 ml Output Urine Total 500 ml 600 ml CXR: no change Labs: Laboratory Tests Test 10/05/18 05:07 White Blood Count 9.1 K/UL (4.8-10.8) Red Blood Count 3.28 M/UL (4.70-6.10) L Hemoglobin 9.1 G/DL (14.2-18.0) L Hematocrit 27.7 % (42.0-52.0) L Mean Corpuscular Volume 84 FL (80-99) Mean Corpuscular Hemoglobin 27.7 PG (27.0-31.0) Mean Corpuscular Hemoglobin Concent 32.8 G/DL (32.0-36.0) Red Cell Distribution Width 14.9 % (11.6-14.8) H Platelet Count 369 K/UL (150-450) Mean Platelet Volume 6.4 FL (6.5-10.1) L Neutrophils (%) (Auto) 67.0 % (45.0-75.0) Lymphocytes (%) (Auto) 16.3 % (20.0-45.0) L Monocytes (%) (Auto) 10.4 % (1.0-10.0) H Eosinophils (%) (Auto) 5.7 % (0.0-3.0) H Basophils (%) (Auto) 0.6 % (0.0-2.0) Sodium Level 137 MMOL/L (136-145) Potassium Level 4.1 MMOL/L (3.5-5.1) Chloride Level 106 MMOL/L (98-107) Carbon Dioxide Level 20 MMOL/L (21-32) L Anion Gap 11 mmol/L (5-15) Blood Urea Nitrogen 22 mg/dL (7-18) H Creatinine 1.3 MG/DL (0.55-1.30) Estimat Glomerular Filtration Rate 54.6 mL/min (>60) Glucose Level 93 MG/DL (74-106) Calcium Level 9.4 MG/DL (8.5-10.1) Huma Keating MD Oct 05, 2018 09:11
[2018-10-05 12:00] VITALS: BP 130/91
[2018-10-05 16:00] VITALS: BP 137/66
[2018-10-05] MEDS ORDERED: Tubing IV Secondary IV ONE (17:02)
[2018-10-05] MEDS ORDERED: NS 275ml ONE (17:02)
[2018-10-05 20:00] VITALS: BP 146/81
[2018-10-05] MEDS: Dyna-Hex 2% Top Sol 2oz TOPIC SCH (20:09)
[2018-10-05] MEDS: Ertapenem 1 GM in NS 55 ML IVPB SCH (20:10)
[2018-10-06] VITALS: BP 153/85
[2018-10-06 04:00] VITALS: BP 137/67
[2018-10-06 07:04] LABS: BASOPHILS % (AUTO) 0.5 % (0.0-2.0); EOSINOPHILS % (AUTO) 5.8 % (0.0-3.0); HEMATOCRIT 30.3 % (42.0-52.0); HEMOGLOBIN 9.7 G/DL (14.2-18.0); LYMPHOCYTES % (AUTO) 17.5 % (20.0-45.0); MEAN CORPUSCULAR VOLUME 85 FL (80-99); MONOCYTES % (AUTO) 9.2 % (1.0-10.0); NEUTROPHILS % (AUTO) 66.9 % (45.0-75.0); PLATELET COUNT 382 K/UL (150-450); RED BLOOD COUNT 3.57 M/UL (4.70-6.10); WHITE BLOOD COUNT 9.9 K/UL (4.8-10.8)
[2018-10-06 07:35] LABS: ALANINE AMINOTRANSFERASE 21 U/L (12-78); ALBUMIN/GLOBULIN RATIO 0.6 (1.0-2.7); ALKALINE PHOSPHATASE 120 U/L (46-116); ANION GAP 11 mmol/L (5-15); ASPARTATE AMINO TRANSFERASE 14 U/L (15-37); BILIRUBIN,TOTAL 0.3 MG/DL (0.2-1.0); BLOOD UREA NITROGEN 24 mg/dL (7-18); CARBON DIOXIDE 22 MMOL/L (21-32); CHLORIDE 105 MMOL/L (98-107); CREATININE 1.2 MG/DL (0.55-1.30); POTASSIUM 4.5 MMOL/L (3.5-5.1); SODIUM 138 MMOL/L (136-145)
--- NOTE | 2018-10-06 07:42 | General Progress Note ---
Assessment/Plan Problem List: (1) correction resident ICD Codes: Z59.3 - Problems related to living in residential institution SNOMED: 372382431 (2) Alzheimer's dementia ICD Codes: G30.9 - Alzheimer's disease, unspecified SNOMED: 35809455 (3) Iron deficiency ICD Codes: E61.1 - Iron deficiency SNOMED: 56811229 (4) Upper GI bleed ICD Codes: K92.2 - Upper gastrointestinal hemorrhage SNOMED: 99232893 (5) Severe erosive esophagitis (6) Anemia ICD Codes: D64.9 - Anemia, unspecified SNOMED: 652291121 (7) Feeding by G-tube ICD Codes: Z93.1 - Gastrostomy status SNOMED: 092758547, 486965347 Assessment/Plan Status post endoscopy in July 2018 noted with GERD, diffuse ulcerative esophagitis, peptic esophageal stricture. G-tube feedings ppi BID + carafate prn transfusions anemia work up OB stool r/o GI bleed pending monitor H&H, prn transfusions bowel regime fu labs Subjective ROS Limited/Unobtainable: No Allergies: Coded Allergies: NO KNOWN DRUG ALLERGIES (Verified Allergy, Unknown, 09/11/16) Objective Last 24 Hour Vital Signs Date Time Temp Pulse Resp B/P (MAP) Pulse Ox O2 Delivery O2 Flow Rate FiO2 10/06/18 07:10 71 16 40 10/06/18 05:17 66 16 40 10/06/18 04:00 98.1 66 19 137/67 (90) 93 10/06/18 04:00 40 10/06/18 04:00 Mechanical Ventilator 10/06/18 03:46 65 10/06/18 02:45 73 20 40 10/06/18 01:12 73 16 40 10/06/18 00:00 Mechanical Ventilator 10/06/18 00:00 98.1 73 19 153/85 (107) 94 10/05/18 23:54 70 10/05/18 23:50 73 16 40 10/05/18 20:34 82 16 40 10/05/18 20:00 40 10/05/18 20:00 Mechanical Ventilator 10/05/18 20:00 98.2 75 16 146/81 (102) 100 10/05/18 19:36 80 16 40 10/05/18 19:20 69 10/05/18 16:42 78 16 40 10/05/18 16:00 Mechanical Ventilator 10/05/18 16:00 68 10/05/18 16:00 98.1 77 16 137/66 (89) 98 10/05/18 16:00 40 10/05/18 15:20 72 17 40 10/05/18 12:35 67 16 40 10/05/18 12:07 40 10/05/18 12:05 Mechanical Ventilator 10/05/18 12:00 97.3 68 16 130/91 (104) 100 10/05/18 12:00 68 10/05/18 10:35 61 16 40 10/05/18 08:34 64 16 40 10/05/18 08:01 Mechanical Ventilator 10/05/18 08:00 40 10/05/18 08:00 66 10/05/18 08:00 98.2 76 22 133/69 (90) 100 Intake and Output 10/05/18 10/06/18 19:00 07:00 Intake Total 800 ml 460 ml Output Total 500 ml 700 ml Balance 300 ml -240 ml Free Water 200 ml 100 ml Tube Feeding 360 ml 300 ml Other 240 ml 60 ml Output Urine Total 500 ml 700 ml Laboratory Tests 10/06/18 05:50: White Blood Count 9.9, Red Blood Count 3.57L, Hemoglobin 9.7L, Hematocrit 30.3L , Mean Corpuscular Volume 85, Mean Corpuscular Hemoglobin 27.2, Mean Corpuscular Hemoglobin Concent 32.1, Red Cell Distribution Width 15.0H, Platelet Count 382, Mean Platelet Volume 6.7, Neutrophils (%) (Auto) 66.9, Lymphocytes (%) (Auto) 17.5L, Monocytes (%) (Auto) 9.2, Eosinophils (%) (Auto) 5.8H, Basophils (%) (Auto) 0.5, Sodium Level 138, Potassium Level 4.5, Chloride Level 105, Carbon Dioxide Level 22, Anion Gap 11, Blood Urea Nitrogen 24H, Creatinine 1.2, Estimat Glomerular Filtration Rate 59.9, Glucose Level 112H, Calcium Level 10.0, Phosphorus Level [Pending], Magnesium Level [Pending], Total Bilirubin 0.3, Aspartate Amino Transf (AST/SGOT) 14L, Alanine Aminotransferase (ALT/SGPT) 21, Alkaline Phosphatase 120H, Total Protein 8.0, Albumin 3.0L, Globulin 5.0, Albumin/Globulin Ratio 0.6L Height (Feet): 6 Height (Inches): 1.00 Weight (Pounds): 124 General Appearance: no apparent distress EENT: normal ENT inspection Neck: supple Cardiovascular: normal rate Respiratory/Chest: decreased breath sounds Abdomen: normal bowel sounds, non tender Extremities: non-tender Vitaliy Wilson MD Oct 06, 2018 07:42
[2018-10-06 08:00] VITALS: BP 135/86
[2018-10-06] MEDS: Pantoprazole Inj IV SCH (08:30)
[2018-10-06] MEDS: Sucralfate 1gm tab GT SCH ×4 (08:30→21:31)
--- NOTE | 2018-10-06 08:48 | General Progress Note ---
Assessment/Plan Problem List: (1) GIB (gastrointestinal bleeding) ICD Codes: K92.2 - Gastrointestinal hemorrhage, unspecified SNOMED: 92509484 (2) UTI (urinary tract infection) ICD Codes: N39.0 - Urinary tract infection, site not specified SNOMED: 62855338 (3) Respiratory failure, [id number] ICD Codes: J96.20 - Respiratory failure, oawnf-lr-kkbyuli SNOMED: 87952012 (4) Sepsis ICD Codes: A41.9 - Sepsis, unspecified organism SNOMED: 84878230 (5) Alzheimer's dementia ICD Codes: G30.9 - Alzheimer's disease, unspecified SNOMED: 06900033 Status: stable, progressing Assessment/Plan vent abx cbc bmp am ltach eval Subjective Constitutional: Reports: weakness Allergies: Coded Allergies: NO KNOWN DRUG ALLERGIES (Verified Allergy, Unknown, 09/11/16) All Systems: reviewed and negative except above Subjective trach vent altered Objective Last 24 Hour Vital Signs Date Time Temp Pulse Resp B/P (MAP) Pulse Ox O2 Delivery O2 Flow Rate FiO2 10/06/18 07:10 71 16 40 10/06/18 05:17 66 16 40 10/06/18 04:00 98.1 66 19 137/67 (90) 93 10/06/18 04:00 40 10/06/18 04:00 Mechanical Ventilator 10/06/18 03:46 65 10/06/18 02:45 73 20 40 10/06/18 01:12 73 16 40 10/06/18 00:00 Mechanical Ventilator 10/06/18 00:00 98.1 73 19 153/85 (107) 94 10/05/18 23:54 70 10/05/18 23:50 73 16 40 10/05/18 20:34 82 16 40 10/05/18 20:00 40 10/05/18 20:00 Mechanical Ventilator 10/05/18 20:00 98.2 75 16 146/81 (102) 100 10/05/18 19:36 80 16 40 10/05/18 19:20 69 10/05/18 16:42 78 16 40 10/05/18 16:00 Mechanical Ventilator 10/05/18 16:00 68 10/05/18 16:00 98.1 77 16 137/66 (89) 98 10/05/18 16:00 40 10/05/18 15:20 72 17 40 10/05/18 12:35 67 16 40 10/05/18 12:07 40 10/05/18 12:05 Mechanical Ventilator 10/05/18 12:00 97.3 68 16 130/91 (104) 100 10/05/18 12:00 68 10/05/18 10:35 61 16 40 Intake and Output 10/05/18 10/06/18 19:00 07:00 Intake Total 800 ml 460 ml Output Total 500 ml 700 ml Balance 300 ml -240 ml Free Water 200 ml 100 ml Tube Feeding 360 ml 300 ml Other 240 ml 60 ml Output Urine Total 500 ml 700 ml Laboratory Tests 10/06/18 05:50: White Blood Count 9.9, Red Blood Count 3.57L, Hemoglobin 9.7L, Hematocrit 30.3L , Mean Corpuscular Volume 85, Mean Corpuscular Hemoglobin 27.2, Mean Corpuscular Hemoglobin Concent 32.1, Red Cell Distribution Width 15.0H, Platelet Count 382, Mean Platelet Volume 6.7, Neutrophils (%) (Auto) 66.9, Lymphocytes (%) (Auto) 17.5L, Monocytes (%) (Auto) 9.2, Eosinophils (%) (Auto) 5.8H, Basophils (%) (Auto) 0.5, Sodium Level 138, Potassium Level 4.5, Chloride Level 105, Carbon Dioxide Level 22, Anion Gap 11, Blood Urea Nitrogen 24H, Creatinine 1.2, Estimat Glomerular Filtration Rate 59.9, Glucose Level 112H, Calcium Level 10.0, Phosphorus Level 3.0, Magnesium Level 2.1, Total Bilirubin 0.3, Aspartate Amino Transf (AST/SGOT) 14L, Alanine Aminotransferase (ALT/SGPT) 21, Alkaline Phosphatase 120H, Total Protein 8.0, Albumin 3.0L, Globulin 5.0, Albumin/Globulin Ratio 0.6L Height (Feet): 6 Height (Inches): 1.00 Weight (Pounds): 124 General Appearance: lethargic EENT: normal ENT inspection Neck: normal alignment Cardiovascular: normal peripheral pulses, normal rate, regular rhythm Respiratory/Chest: chest wall non-tender, lungs clear, normal breath sounds Abdomen: normal bowel sounds, non tender, soft Extremities: normal inspection Edema: no edema noted Arm (L), no edema noted Arm (R), no edema noted Leg (L), no edema noted Leg (R), no edema noted Pedal (L), no edema noted Pedal (R), no edema noted Generalized Neurologic: motor weakness Skin: normal pigmentation, warm/dry Gato Viveros DO Oct 06, 2018 08:47
--- NOTE | 2018-10-06 11:19 | Cardiology Report ---
APPROVED REPORT EKG Measurement Heart [id number] Normal sinus rhythm Normal ECG
[2018-10-06 12:00] VITALS: BP 147/77
--- NOTE | 2018-10-06 12:27 | Pulmonolgy Critical Care Note ---
Critical Care - Asmt/Plan Problems: (1) Sepsis (2) Chronic respiratory failure (3) Protein-calorie malnutrition, severe (4) Severe erosive esophagitis (5) Feeding by G-tube (6) Alzheimer's dementia Respiratory: monitor respiratory rate, adjust FIO2, CXR Cardiac: continue to monitor HR/BP Renal: F/U I&O, check electrolytes Infectious Disease: check cultures Gastrointestinal: continue feedings/current rate Endocrine: monitor blood sugar, check HgA1C Hematologic: transfuse if hgb<8.5 Neurologic: PRN Ativan, keep patient comfortable Affect: PRN ativan Prophylaxis: Protonix Notes Reviewed: rn transitional, 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 with: nurses, consultants, case management coordinatormanager strategic partnerships - Objective Last 24 Hour Vital Signs Date Time Temp Pulse Resp B/P (MAP) Pulse Ox O2 Delivery O2 Flow Rate FiO2 10/06/18 11:05 76 18 40 10/06/18 08:56 73 16 40 10/06/18 08:00 Mechanical Ventilator 10/06/18 08:00 68 10/06/18 08:00 97.9 72 16 135/86 (102) 98 10/06/18 08:00 40 10/06/18 07:10 71 16 40 10/06/18 05:17 66 16 40 10/06/18 04:00 98.1 66 19 137/67 (90) 93 10/06/18 04:00 40 10/06/18 04:00 Mechanical Ventilator 10/06/18 03:46 65 10/06/18 02:45 73 20 40 10/06/18 01:12 73 16 40 10/06/18 00:00 Mechanical Ventilator 10/06/18 00:00 98.1 73 19 153/85 (107) 94 10/05/18 23:54 70 10/05/18 23:50 73 16 40 10/05/18 20:34 82 16 40 10/05/18 20:00 40 10/05/18 20:00 Mechanical Ventilator 10/05/18 20:00 98.2 75 16 146/81 (102) 100 10/05/18 19:36 80 16 40 10/05/18 19:20 69 10/05/18 16:42 78 16 40 10/05/18 16:00 Mechanical Ventilator 10/05/18 16:00 68 10/05/18 16:00 98.1 77 16 137/66 (89) 98 10/05/18 16:00 40 10/05/18 15:20 72 17 40 10/05/18 12:35 67 16 40 Status: awake Condition: critical Lungs: clear Heart: regular Abdomen: non-tender, feeding tube Decubiti: location, stage Micro: Microbiology Date/Time Source Procedure Growth Status 10/05/18 05:00 Sputum Induced Gram Stain - Final Resulted 10/05/18 05:00 Sputum Induced Sputum Culture Pending Resulted Critical Care - Subjective ROS Limited/Unobtainable: Yes Condition: critical EKG Rhythm: Sinus Rhythm FI02: 40 Vent Support Breath Rate: 16 Vent Support Mode: AC Vent Tidal Volume: 600 Sputum Amount: Moderate PEEP: 5.0 PIP: 25 Tube Feeding Amount: 30 I&O: Intake and Output 10/05/18 10/06/18 18:59 06:59 Intake Total 800 ml 490 ml Output Total 500 ml 700 ml Balance 300 ml -210 ml Free Water 200 ml 100 ml Tube Feeding 360 ml 330 ml Other 240 ml 60 ml Output Urine Total 500 ml 700 ml Labs: Laboratory Tests Test 10/07/18 03:15 White Blood Count 10.2 K/UL (4.8-10.8) Red Blood Count 3.43 M/UL (4.70-6.10) L Hemoglobin 9.4 G/DL (14.2-18.0) L Hematocrit 28.8 % (42.0-52.0) L Mean Corpuscular Volume 84 FL (80-99) Mean Corpuscular Hemoglobin 27.4 PG (27.0-31.0) Mean Corpuscular Hemoglobin Concent 32.5 G/DL (32.0-36.0) Red Cell Distribution Width 14.9 % (11.6-14.8) H Platelet Count 361 K/UL (150-450) Mean Platelet Volume 6.2 FL (6.5-10.1) L Neutrophils (%) (Auto) 66.1 % (45.0-75.0) Lymphocytes (%) (Auto) 16.9 % (20.0-45.0) L Monocytes (%) (Auto) 11.3 % (1.0-10.0) H Eosinophils (%) (Auto) 4.9 % (0.0-3.0) H Basophils (%) (Auto) 0.8 % (0.0-2.0) Sodium Level 134 MMOL/L (136-145) L Potassium Level 4.3 MMOL/L (3.5-5.1) Chloride Level 102 MMOL/L (98-107) Carbon Dioxide Level 22 MMOL/L (21-32) Anion Gap 11 mmol/L (5-15) Blood Urea Nitrogen 25 mg/dL (7-18) H Creatinine 1.2 MG/DL (0.55-1.30) Estimat Glomerular Filtration Rate 59.9 mL/min (>60) Glucose Level 108 MG/DL (74-106) H Calcium Level 9.6 MG/DL (8.5-10.1) Huma Keating MD Oct 06, 2018 12:27
[2018-10-06 16:00] VITALS: BP 131/73
[2018-10-06] MEDS ORDERED: NS 275ml ONE (17:26)
[2018-10-06] MEDS: Ertapenem 1 GM in NS 55 ML IVPB SCH (19:45)
[2018-10-06] MEDS: Dyna-Hex 2% Top Sol 2oz TOPIC SCH (19:45)
[2018-10-06 20:00] VITALS: BP 132/73
[2018-10-07] VITALS (7 sets, daily range): BP systolic 126–142; BP diastolic 50–76
[2018-10-07 04:09] LABS: BASOPHILS % (AUTO) 0.8 % (0.0-2.0); EOSINOPHILS % (AUTO) 4.9 % (0.0-3.0); HEMATOCRIT 28.8 % (42.0-52.0); HEMOGLOBIN 9.4 G/DL (14.2-18.0); LYMPHOCYTES % (AUTO) 16.9 % (20.0-45.0); MEAN CORPUSCULAR VOLUME 84 FL (80-99); MONOCYTES % (AUTO) 11.3 % (1.0-10.0); NEUTROPHILS % (AUTO) 66.1 % (45.0-75.0); PLATELET COUNT 361 K/UL (150-450); RED BLOOD COUNT 3.43 M/UL (4.70-6.10); RED CELL DISTRIBUTION WIDTH 14.9 % (11.6-14.8); WHITE BLOOD COUNT 10.2 K/UL (4.8-10.8)
[2018-10-07 04:40] LABS: ANION GAP 11 mmol/L (5-15); BLOOD UREA NITROGEN 25 mg/dL (7-18); CALCIUM 9.6 MG/DL (8.5-10.1); CARBON DIOXIDE 22 MMOL/L (21-32); CHLORIDE 102 MMOL/L (98-107); CREATININE 1.2 MG/DL (0.55-1.30); POTASSIUM 4.3 MMOL/L (3.5-5.1); SODIUM 134 MMOL/L (136-145)
[2018-10-07] MEDS: Pantoprazole Inj IV SCH (08:57)
[2018-10-07] MEDS: Sucralfate 1gm tab GT SCH ×4 (08:57→20:29)
--- NOTE | 2018-10-07 09:24 | Infectious Diseases Prog Note ---
Assessment/Plan Assessment/Plan Abx: IV Vancomycin 10/02- Cefepime 10/02- Assessment: Probable UTI -u.a wbc 30-40, nit neg, leuk +3; ucx 40-50k P, stuarti, probabe AMP-C (S Ceftriaxone, Zosyn, Meropenem; R Ceftazidime, Ancef) Afebrile Leukocytosis, improving -CXR: No acute process. Findings as noted Recurreng UGIB Hx of ESBL UTI 07/2018, s/p Rx 08/01/18 UCxESBL Proteus Sen to erta, zosyn and bactrim; 08/02/18 UCx ESBL P.mirabilis Hx of ESBL and S. maltophilia PNA 07/2018, s/p Rx -sp cx ESBL P.mirabils (S Bactrim), S. maltophilia (S Bactrim) Hx Constipation Chronic respiratory failure trach/vent dependant Hypothyroidism GERD Hypertension Hx C. diff Dysphagia s/p G-tube Anemia. 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 Subjective Allergies: Coded Allergies: NO KNOWN DRUG ALLERGIES (Verified Allergy, Unknown, 09/11/16) Subjective Afebrile No Leukocytosis SCx growing GNR Objective Vital Signs Last 24 Hour Vital Signs Date Time Temp Pulse Resp B/P (MAP) Pulse Ox O2 Delivery O2 Flow Rate FiO2 10/07/18 09:06 68 21 40 10/07/18 08:00 Mechanical Ventilator 10/07/18 08:00 40 10/07/18 06:45 68 16 40 10/07/18 05:20 71 16 40 10/07/18 04:00 40 10/07/18 04:00 Mechanical Ventilator 10/07/18 04:00 72 10/07/18 04:00 98.0 75 16 142/69 (93) 100 10/07/18 02:58 70 16 40 10/07/18 01:14 71 16 40 10/07/18 00:00 Mechanical Ventilator 10/07/18 00:00 98.3 70 16 140/76 (97) 100 10/06/18 22:46 70 16 40 10/06/18 20:49 75 16 40 10/06/18 20:00 98.5 74 16 132/73 (92) 100 10/06/18 20:00 69 10/06/18 20:00 Mechanical Ventilator 10/06/18 20:00 40 10/06/18 19:16 69 16 40 10/06/18 16:55 81 16 40 10/06/18 16:00 40 10/06/18 16:00 98.1 69 16 131/73 (92) 100 10/06/18 16:00 68 10/06/18 16:00 Mechanical Ventilator 10/06/18 14:45 77 16 40 10/06/18 13:30 79 16 40 10/06/18 12:00 Mechanical Ventilator 10/06/18 12:00 70 10/06/18 12:00 40 10/06/18 12:00 98.1 72 18 147/77 (100) 100 10/06/18 11:05 76 18 40 Height (Feet): 6 Height (Inches): 1.00 Weight (Pounds): 124 Objective General: alert, On vent 40% Respiratory: CATB Cardiovascular: normal peripheral pulses, regular rate, rhythm Gastrointestinal: soft, ND Neurologic: motor weakness Microbiology Date/Time Source Procedure Growth Status 10/05/18 05:00 Sputum Induced Gram Stain - Final Resulted 10/05/18 05:00 Sputum Culture - Preliminary Gram Negative Bacillus 1 Resulted Laboratory Tests Test 10/07/18 03:15 White Blood Count 10.2 K/UL (4.8-10.8) Red Blood Count 3.43 M/UL (4.70-6.10) L Hemoglobin 9.4 G/DL (14.2-18.0) L Hematocrit 28.8 % (42.0-52.0) L Mean Corpuscular Volume 84 FL (80-99) Mean Corpuscular Hemoglobin 27.4 PG (27.0-31.0) Mean Corpuscular Hemoglobin Concent 32.5 G/DL (32.0-36.0) Red Cell Distribution Width 14.9 % (11.6-14.8) H Platelet Count 361 K/UL (150-450) Mean Platelet Volume 6.2 FL (6.5-10.1) L Neutrophils (%) (Auto) 66.1 % (45.0-75.0) Lymphocytes (%) (Auto) 16.9 % (20.0-45.0) L Monocytes (%) (Auto) 11.3 % (1.0-10.0) H Eosinophils (%) (Auto) 4.9 % (0.0-3.0) H Basophils (%) (Auto) 0.8 % (0.0-2.0) Sodium Level 134 MMOL/L (136-145) L Potassium Level 4.3 MMOL/L (3.5-5.1) Chloride Level 102 MMOL/L (98-107) Carbon Dioxide Level 22 MMOL/L (21-32) Anion Gap 11 mmol/L (5-15) Blood Urea Nitrogen 25 mg/dL (7-18) H Creatinine 1.2 MG/DL (0.55-1.30) Estimat Glomerular Filtration Rate 59.9 mL/min (>60) Glucose Level 108 MG/DL (74-106) H Calcium Level 9.6 MG/DL (8.5-10.1) Current Medications Medications (Trade) Dose Ordered Sig/Wanda Route PRN Reason Start Time Stop Time Status Last Admin Dose Admin Acetaminophen (Tylenol) 650 mg Q4H PRN ORAL T>100.5 10/02/18 15:45 11/01/18 15:44 Albuterol/ Ipratropium (Albuterol/ Ipratropium) 3 ml Q4H PRN HHN Shortness of Breath 10/02/18 15:45 10/07/18 15:44 Chlorhexidine Gluconate (Jasmin-Hex 2%) 1 applic DAILY@1999 TOPIC 10/02/18 20:00 11/01/18 19:59 10/06/18 19:45 Dextrose (Dextrose 50%) 25 ml Q30M PRN IV Hypoglycemia 10/02/18 16:00 11/01/18 15:48 Dextrose (Dextrose 50%) 50 ml Q30M PRN IV hypoglycemia 10/02/18 16:00 11/01/18 15:59 Ertapenem 1 gm/ Sodium Chloride 55 ml @ 110 mls/hr Q24H IVPB 10/04/18 20:00 10/09/18 19:59 10/06/18 19:45 Levothyroxine Sodium (Synthroid) 50 mcg DAILY GT 10/03/18 09:00 11/02/18 08:59 10/07/18 08:57 Lorazepam (Ativan 2mg/ml 1ml) 2 mg Q2H PRN IV For Anxiety 10/02/18 15:45 10/09/18 15:44 Morphine Sulfate (Morphine Sulfate) 4 mg Q4H PRN IVP Severe Pain (Pain Scale 7-10) 10/02/18 15:45 10/09/18 15:44 Ondansetron HCl (Zofran) 4 mg Q6H PRN IVP Nausea & Vomiting 10/02/18 15:45 11/01/18 15:44 Pantoprazole (Protonix) 40 mg DAILY IV 10/03/18 09:00 11/02/18 08:59 10/07/18 08:57 Polyethylene Glycol (Miralax) 17 gm DAILYPRN PRN ORAL Constipation 10/02/18 15:45 11/01/18 15:44 10/06/18 12:47 Sucralfate (Carafate) 1 gm FOUR TIMES A DAY GT 10/02/18 18:00 11/01/18 17:59 10/07/18 08:57 John Fiore MD Oct 07, 2018 09:24
--- NOTE | 2018-10-07 11:09 | Pulmonolgy Critical Care Note ---
Critical Care - Asmt/Plan Problems: (1) Sepsis (2) Chronic respiratory failure (3) Protein-calorie malnutrition, severe (4) Severe erosive esophagitis (5) Feeding by G-tube (6) Alzheimer's dementia Respiratory: monitor respiratory rate, adjust FIO2, CXR Cardiac: continue to monitor HR/BP Renal: F/U I&O, check electrolytes Infectious Disease: check cultures Gastrointestinal: continue feedings/current rate Endocrine: monitor blood sugar, check HgA1C Neurologic: PRN Ativan, PRN Morphine, keep patient comfortable Prophylaxis: Protonix Notes Reviewed: supervisor green end department, 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 with: nurses, consultants, clinical case managerconference center manager - Objective Last 24 Hour Vital Signs Date Time Temp Pulse Resp B/P (MAP) Pulse Ox O2 Delivery O2 Flow Rate FiO2 10/07/18 09:06 68 21 40 10/07/18 08:00 Mechanical Ventilator 10/07/18 08:00 97.9 69 18 130/73 (92) 99 10/07/18 08:00 40 10/07/18 06:45 68 16 40 10/07/18 05:20 71 16 40 10/07/18 04:00 40 10/07/18 04:00 Mechanical Ventilator 10/07/18 04:00 72 10/07/18 04:00 98.0 75 16 142/69 (93) 100 10/07/18 02:58 70 16 40 10/07/18 01:14 71 16 40 10/07/18 00:00 Mechanical Ventilator 10/07/18 00:00 98.3 70 16 140/76 (97) 100 10/06/18 22:46 70 16 40 10/06/18 20:49 75 16 40 10/06/18 20:00 98.5 74 16 132/73 (92) 100 10/06/18 20:00 69 10/06/18 20:00 Mechanical Ventilator 10/06/18 20:00 40 10/06/18 19:16 69 16 40 10/06/18 16:55 81 16 40 10/06/18 16:00 40 10/06/18 16:00 98.1 69 16 131/73 (92) 100 10/06/18 16:00 68 10/06/18 16:00 Mechanical Ventilator 10/06/18 14:45 77 16 40 10/06/18 13:30 79 16 40 10/06/18 12:00 Mechanical Ventilator 10/06/18 12:00 70 10/06/18 12:00 40 10/06/18 12:00 98.1 72 18 147/77 (100) 100 10/06/18 11:05 76 18 40 Status: awake Condition: critical Neck: full ROM Lungs: clear Heart: HR/BP stable, regular Abdomen: soft, active bowel sounds Extremities: no C/C/E Decubiti: location, stage Micro: Microbiology Date/Time Source Procedure Growth Status 10/05/18 05:00 Sputum Induced Gram Stain - Final Resulted 10/05/18 05:00 Sputum Culture - Preliminary Gram Negative Bacillus 1 Resulted Critical Care - Subjective ROS Limited/Unobtainable: Yes Condition: critical EKG Rhythm: Sinus Rhythm FI02: 40 Vent Support Breath Rate: 16 Vent Support Mode: AC Vent Tidal Volume: 600 Sputum Amount: Small PEEP: 5.0 PIP: 22 Tube Feeding Amount: 30 I&O: Intake and Output 10/06/18 10/07/18 19:00 07:00 Intake Total 730 ml 475 ml Output Total 275 ml 460 ml Balance 455 ml 15 ml Free Water 100 ml 90 ml IV Total 55 ml Tube Feeding 330 ml 330 ml Other 300 ml Output Urine Total 275 ml 460 ml CXR: no acute changes Labs: Laboratory Tests Test 10/07/18 03:15 White Blood Count 10.2 K/UL (4.8-10.8) Red Blood Count 3.43 M/UL (4.70-6.10) L Hemoglobin 9.4 G/DL (14.2-18.0) L Hematocrit 28.8 % (42.0-52.0) L Mean Corpuscular Volume 84 FL (80-99) Mean Corpuscular Hemoglobin 27.4 PG (27.0-31.0) Mean Corpuscular Hemoglobin Concent 32.5 G/DL (32.0-36.0) Red Cell Distribution Width 14.9 % (11.6-14.8) H Platelet Count 361 K/UL (150-450) Mean Platelet Volume 6.2 FL (6.5-10.1) L Neutrophils (%) (Auto) 66.1 % (45.0-75.0) Lymphocytes (%) (Auto) 16.9 % (20.0-45.0) L Monocytes (%) (Auto) 11.3 % (1.0-10.0) H Eosinophils (%) (Auto) 4.9 % (0.0-3.0) H Basophils (%) (Auto) 0.8 % (0.0-2.0) Sodium Level 134 MMOL/L (136-145) L Potassium Level 4.3 MMOL/L (3.5-5.1) Chloride Level 102 MMOL/L (98-107) Carbon Dioxide Level 22 MMOL/L (21-32) Anion Gap 11 mmol/L (5-15) Blood Urea Nitrogen 25 mg/dL (7-18) H Creatinine 1.2 MG/DL (0.55-1.30) Estimat Glomerular Filtration Rate 59.9 mL/min (>60) Glucose Level 108 MG/DL (74-106) H Calcium Level 9.6 MG/DL (8.5-10.1) Huma Keating MD Oct 07, 2018 11:09
--- NOTE | 2018-10-07 11:20 | GI Progress Note ---
Assessment/Plan Problems: (1) GI bleed ICD Codes: K92.2 - Gastrointestinal hemorrhage, unspecified SNOMED: 08899209 (2) Severe protein-calorie malnutrition ICD Codes: E43 - Unspecified severe protein-calorie malnutrition SNOMED: 554415941 (3) Feeding by G-tube ICD Codes: Z93.1 - Gastrostomy status SNOMED: 303882459, 340577642 (4) Esophagitis ICD Codes: K20.9 - Esophagitis SNOMED: 54565784 (5) Anemia ICD Codes: D64.9 - Anemia, unspecified SNOMED: 316221014 (6) Upper GI bleed ICD Codes: K92.2 - Upper gastrointestinal hemorrhage SNOMED: 15269687 (7) Tracheostomy dependence ICD Codes: Z93.0 - Tracheostomy status SNOMED: 619142502, 680611827 (8) Iron deficiency ICD Codes: E61.1 - Iron deficiency SNOMED: 32272607 Status: stable Status Narrative Discussed with Dr. Wilson. Assessment/Plan Status post endoscopy in July 2018 noted with GERD, diffuse ulcerative esophagitis, peptic esophageal stricture. G-tube feedings ppi BID + carafate prn transfusions anemia work up OB stool r/o GI bleed pending monitor H&H, prn transfusions bowel regime fu labs The patient was seen and examined at bedside and all new and available data was reviewed in the patients chart. I agree with the above findings, impression and plan. (Patient seen earlier today. Signature stamp does not reflect patient encounter time.). - Vitaliy Wilson MD Subjective Subjective Limited Objective Last 24 Hour Vital Signs Date Time Temp Pulse Resp B/P (MAP) Pulse Ox O2 Delivery O2 Flow Rate FiO2 10/07/18 09:06 68 21 40 10/07/18 08:00 Mechanical Ventilator 10/07/18 08:00 97.9 69 18 130/73 (92) 99 10/07/18 08:00 40 10/07/18 06:45 68 16 40 10/07/18 05:20 71 16 40 10/07/18 04:00 40 10/07/18 04:00 Mechanical Ventilator 10/07/18 04:00 72 10/07/18 04:00 98.0 75 16 142/69 (93) 100 10/07/18 02:58 70 16 40 10/07/18 01:14 71 16 40 10/07/18 00:00 Mechanical Ventilator 10/07/18 00:00 98.3 70 16 140/76 (97) 100 10/06/18 22:46 70 16 40 10/06/18 20:49 75 16 40 10/06/18 20:00 98.5 74 16 132/73 (92) 100 10/06/18 20:00 69 10/06/18 20:00 Mechanical Ventilator 10/06/18 20:00 40 10/06/18 19:16 69 16 40 10/06/18 16:55 81 16 40 10/06/18 16:00 40 10/06/18 16:00 98.1 69 16 131/73 (92) 100 10/06/18 16:00 68 10/06/18 16:00 Mechanical Ventilator 10/06/18 14:45 77 16 40 10/06/18 13:30 79 16 40 10/06/18 12:00 Mechanical Ventilator 10/06/18 12:00 70 10/06/18 12:00 40 10/06/18 12:00 98.1 72 18 147/77 (100) 100 Intake and Output 10/06/18 10/07/18 19:00 07:00 Intake Total 730 ml 475 ml Output Total 275 ml 460 ml Balance 455 ml 15 ml Free Water 100 ml 90 ml IV Total 55 ml Tube Feeding 330 ml 330 ml Other 300 ml Output Urine Total 275 ml 460 ml Laboratory Tests Test 10/07/18 03:15 White Blood Count 10.2 K/UL (4.8-10.8) Red Blood Count 3.43 M/UL (4.70-6.10) L Hemoglobin 9.4 G/DL (14.2-18.0) L Hematocrit 28.8 % (42.0-52.0) L Mean Corpuscular Volume 84 FL (80-99) Mean Corpuscular Hemoglobin 27.4 PG (27.0-31.0) Mean Corpuscular Hemoglobin Concent 32.5 G/DL (32.0-36.0) Red Cell Distribution Width 14.9 % (11.6-14.8) H Platelet Count 361 K/UL (150-450) Mean Platelet Volume 6.2 FL (6.5-10.1) L Neutrophils (%) (Auto) 66.1 % (45.0-75.0) Lymphocytes (%) (Auto) 16.9 % (20.0-45.0) L Monocytes (%) (Auto) 11.3 % (1.0-10.0) H Eosinophils (%) (Auto) 4.9 % (0.0-3.0) H Basophils (%) (Auto) 0.8 % (0.0-2.0) Sodium Level 134 MMOL/L (136-145) L Potassium Level 4.3 MMOL/L (3.5-5.1) Chloride Level 102 MMOL/L (98-107) Carbon Dioxide Level 22 MMOL/L (21-32) Anion Gap 11 mmol/L (5-15) Blood Urea Nitrogen 25 mg/dL (7-18) H Creatinine 1.2 MG/DL (0.55-1.30) Estimat Glomerular Filtration Rate 59.9 mL/min (>60) Glucose Level 108 MG/DL (74-106) H Calcium Level 9.6 MG/DL (8.5-10.1) Height (Feet): 6 Height (Inches): 1.00 Weight (Pounds): 124 General Appearance: WD/WN, no apparent distress, alert Cardiovascular: normal rate Respiratory/Chest: normal breath sounds, no respiratory distress Abdominal Exam: normal bowel sounds, non tender, soft, GT site - clean dry intact Extremities: non-tender Emanuel Quesada NP Oct 07, 2018 11:20
--- NOTE | 2018-10-07 14:03 | General Progress Note ---
Assessment/Plan Problem List: (1) GIB (gastrointestinal bleeding) ICD Codes: K92.2 - Gastrointestinal hemorrhage, unspecified SNOMED: 95642756 (2) UTI (urinary tract infection) ICD Codes: N39.0 - Urinary tract infection, site not specified SNOMED: 93360078 (3) Respiratory failure, [id number] ICD Codes: J96.20 - Respiratory failure, [id number]-hdwytmj SNOMED: 52442587 (4) Sepsis ICD Codes: A41.9 - Sepsis, unspecified organism SNOMED: 19034535 (5) Alzheimer's dementia ICD Codes: G30.9 - Alzheimer's disease, unspecified SNOMED: 63890060 Status: stable, progressing Assessment/Plan vent abx cbc bmp am ltach eval Subjective Constitutional: Reports: weakness Allergies: Coded Allergies: NO KNOWN DRUG ALLERGIES (Verified Allergy, Unknown, 09/11/16) All Systems: reviewed and negative except above Subjective trach vent altered Objective Last 24 Hour Vital Signs Date Time Temp Pulse Resp B/P (MAP) Pulse Ox O2 Delivery O2 Flow Rate FiO2 10/07/18 12:00 63 10/07/18 12:00 40 10/07/18 12:00 97.8 66 18 132/50 (77) 100 10/07/18 12:00 Mechanical Ventilator 10/07/18 11:10 64 16 40 10/07/18 09:06 68 21 40 10/07/18 08:00 Mechanical Ventilator 10/07/18 08:00 97.9 69 18 130/73 (92) 99 10/07/18 08:00 40 10/07/18 08:00 74 10/07/18 06:45 68 16 40 10/07/18 05:20 71 16 40 10/07/18 04:00 40 10/07/18 04:00 Mechanical Ventilator 10/07/18 04:00 72 10/07/18 04:00 98.0 75 16 142/69 (93) 100 10/07/18 02:58 70 16 40 10/07/18 01:14 71 16 40 10/07/18 00:00 Mechanical Ventilator 10/07/18 00:00 98.3 70 16 140/76 (97) 100 10/06/18 22:46 70 16 40 10/06/18 20:49 75 16 40 10/06/18 20:00 98.5 74 16 132/73 (92) 100 10/06/18 20:00 69 10/06/18 20:00 Mechanical Ventilator 10/06/18 20:00 40 10/06/18 19:16 69 16 40 10/06/18 16:55 81 16 40 10/06/18 16:00 40 10/06/18 16:00 98.1 69 16 131/73 (92) 100 10/06/18 16:00 68 10/06/18 16:00 Mechanical Ventilator 10/06/18 14:45 77 16 40 Intake and Output 10/06/18 10/07/18 19:00 07:00 Intake Total 730 ml 475 ml Output Total 275 ml 460 ml Balance 455 ml 15 ml Free Water 100 ml 90 ml IV Total 55 ml Tube Feeding 330 ml 330 ml Other 300 ml Output Urine Total 275 ml 460 ml Laboratory Tests 10/07/18 03:15: White Blood Count 10.2, Red Blood Count 3.43L, Hemoglobin 9.4L, Hematocrit 28.8L , Mean Corpuscular Volume 84, Mean Corpuscular Hemoglobin 27.4, Mean Corpuscular Hemoglobin Concent 32.5, Red Cell Distribution Width 14.9H, Platelet Count 361, Mean Platelet Volume 6.2L, Neutrophils (%) (Auto) 66.1, Lymphocytes (%) (Auto) 16.9L, Monocytes (%) (Auto) 11.3H, Eosinophils (%) (Auto ) 4.9H, Basophils (%) (Auto) 0.8, Sodium Level 134L, Potassium Level 4.3, Chloride Level 102, Carbon Dioxide Level 22, Anion Gap 11, Blood Urea Nitrogen 25H, Creatinine 1.2, Estimat Glomerular Filtration Rate 59.9, Glucose Level 108H , Calcium Level 9.6 Height (Feet): 6 Height (Inches): 1.00 Weight (Pounds): 124 General Appearance: lethargic EENT: normal ENT inspection Neck: normal alignment Cardiovascular: normal peripheral pulses, normal rate, regular rhythm Respiratory/Chest: chest wall non-tender, lungs clear, normal breath sounds Abdomen: normal bowel sounds, non tender, soft Extremities: normal inspection Edema: no edema noted Arm (L), no edema noted Arm (R), no edema noted Leg (L), no edema noted Leg (R), no edema noted Pedal (L), no edema noted Pedal (R), no edema noted Generalized Neurologic: motor weakness Skin: normal pigmentation, warm/dry Gato Viveros DO Oct 07, 2018 14:03
--- NOTE | 2018-10-07 14:15 | Diagnostic Imaging Report ---
APPROVED REPORT CPT Code: 31001 Present Symptoms Comments: BILATERAL LEGS PAIN. BILATERAL: Imaging reveals a patent deep venous system bilaterally. There is no evidence of thrombus within the femoral, popliteal or tibial segments. The greater saphenous veins are also within normal limits. Doppler indicates normal spontaneous flow within these segments.
[2018-10-07] MEDS: Dyna-Hex 2% Top Sol 2oz TOPIC SCH (20:29)
[2018-10-07] MEDS: Ertapenem 1 GM in NS 55 ML IVPB SCH (20:29)
[2018-10-08] VITALS: BP 127/71
[2018-10-08 04:00] VITALS: BP 137/71
[2018-10-08 04:49] LABS: BASOPHILS % (AUTO) 0.8 % (0.0-2.0); EOSINOPHILS % (AUTO) 4.5 % (0.0-3.0); HEMOGLOBIN 9.6 G/DL (14.2-18.0); LYMPHOCYTES % (AUTO) 18.3 % (20.0-45.0); MEAN CORPUSCULAR VOLUME 84 FL (80-99); NEUTROPHILS % (AUTO) 66.3 % (45.0-75.0); PLATELET COUNT 358 K/UL (150-450); RED BLOOD COUNT 3.46 M/UL (4.70-6.10); RED CELL DISTRIBUTION WIDTH 14.8 % (11.6-14.8); WHITE BLOOD COUNT 10.2 K/UL (4.8-10.8)
[2018-10-08 05:15] LABS: ALANINE AMINOTRANSFERASE 19 U/L (12-78); ALBUMIN 2.9 G/DL (3.4-5.0); ALBUMIN/GLOBULIN RATIO 0.6 (1.0-2.7); ALKALINE PHOSPHATASE 116 U/L (46-116); ANION GAP 11 mmol/L (5-15); ASPARTATE AMINO TRANSFERASE 12 U/L (15-37); BILIRUBIN,TOTAL 0.4 MG/DL (0.2-1.0); BLOOD UREA NITROGEN 28 mg/dL (7-18); CALCIUM 9.6 MG/DL (8.5-10.1); CARBON DIOXIDE 20 MMOL/L (21-32); CHLORIDE 102 MMOL/L (98-107); CREATININE 1.2 MG/DL (0.55-1.30); SODIUM 133 MMOL/L (136-145)
[2018-10-08 08:00] VITALS: BP 123/73
--- NOTE | 2018-10-08 08:43 | Diagnostic Imaging Report ---
Indication: Post gastrostomy placement Technique: Supine view of the abdomen after injection of water-soluble contrast into gastrostomy Comparison: 08/04/2018 Findings: Contrast opacifies the stomach. No contrast extravasation is demonstrated. The bowel gas pattern is unremarkable. Impression: Satisfactory position of gastrostomy tube This agrees with the preliminary interpretation provided overnight by [facility] teleradiology service.
[2018-10-08] MEDS: Sucralfate 1gm tab GT SCH ×4 (08:53→20:13)
[2018-10-08] MEDS: Pantoprazole Inj IV SCH (08:53)
--- NOTE | 2018-10-08 09:01 | Infectious Diseases Prog Note ---
Assessment/Plan Assessment/Plan Abx: IV Vancomycin 10/02- Cefepime 10/02- Assessment: Probable UTI -u.a wbc 30-40, nit neg, leuk +3; ucx 40-50k P, stuarti, probabe AMP-C (S Ceftriaxone, Zosyn, Meropenem; R Ceftazidime, Ancef) Afebrile Leukocytosis, improving -CXR: No acute process. Findings as noted Recurreng UGIB Hx of ESBL UTI 07/2018, s/p Rx 08/01/18 UCxESBL Proteus Sen to erta, zosyn and bactrim; 08/02/18 UCx ESBL P.mirabilis Hx of ESBL and S. maltophilia PNA 07/2018, s/p Rx -sp cx ESBL P.mirabils (S Bactrim), S. maltophilia (S Bactrim) - 10/05/18 Sputum with Acetobacter but this is most likely a colonizer given response to Erta Hx Constipation Chronic respiratory failure trach/vent dependant Hypothyroidism GERD Hypertension Hx C. diff Dysphagia s/p G-tube Anemia. 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 Subjective Allergies: Coded Allergies: NO KNOWN DRUG ALLERGIES (Verified Allergy, Unknown, 09/11/16) Subjective Afebrile No Leukocytosis Objective Vital Signs Last 24 Hour Vital Signs Date Time Temp Pulse Resp B/P (MAP) Pulse Ox O2 Delivery O2 Flow Rate FiO2 10/08/18 07:11 71 16 40 10/08/18 05:11 73 16 40 10/08/18 04:00 72 10/08/18 04:00 Mechanical Ventilator 10/08/18 04:00 40 10/08/18 04:00 98.1 71 16 137/71 (93) 100 10/08/18 03:12 69 16 40 10/08/18 00:47 71 16 40 10/08/18 00:00 Mechanical Ventilator 10/08/18 00:00 81 10/08/18 00:00 98.4 73 16 127/71 (89) 100 10/07/18 22:31 62 16 40 10/07/18 22:03 65 17 40 10/07/18 20:00 98.0 74 16 139/73 (95) 100 10/07/18 20:00 40 10/07/18 20:00 Mechanical Ventilator 10/07/18 20:00 75 10/07/18 18:49 67 16 40 10/07/18 17:20 66 16 40 10/07/18 16:00 40 10/07/18 16:00 67 10/07/18 16:00 Mechanical Ventilator 10/07/18 16:00 97.9 71 18 126/67 (86) 100 10/07/18 15:15 69 17 40 10/07/18 13:20 70 16 40 10/07/18 12:00 63 10/07/18 12:00 40 10/07/18 12:00 97.8 66 18 132/50 (77) 100 10/07/18 12:00 Mechanical Ventilator 10/07/18 11:10 64 16 40 10/07/18 09:06 68 21 40 Height (Feet): 6 Height (Inches): 1.00 Weight (Pounds): 124 Objective General: Awake, On vent 40% Respiratory: CATB, No Wheezing Cardiovascular: normal peripheral pulses, regular rate, rhythm Gastrointestinal: soft, ND Neurologic: motor weakness Laboratory Tests Test 10/07/18 19:00 10/08/18 03:20 Stool Occult Blood Pending White Blood Count 10.2 K/UL (4.8-10.8) Red Blood Count 3.46 M/UL (4.70-6.10) L Hemoglobin 9.6 G/DL (14.2-18.0) L Hematocrit 29.0 % (42.0-52.0) L Mean Corpuscular Volume 84 FL (80-99) Mean Corpuscular Hemoglobin 27.7 PG (27.0-31.0) Mean Corpuscular Hemoglobin Concent 33.1 G/DL (32.0-36.0) Red Cell Distribution Width 14.8 % (11.6-14.8) Platelet Count 358 K/UL (150-450) Mean Platelet Volume 6.7 FL (6.5-10.1) Neutrophils (%) (Auto) 66.3 % (45.0-75.0) Lymphocytes (%) (Auto) 18.3 % (20.0-45.0) L Monocytes (%) (Auto) 10.0 % (1.0-10.0) Eosinophils (%) (Auto) 4.5 % (0.0-3.0) H Basophils (%) (Auto) 0.8 % (0.0-2.0) Sodium Level 133 MMOL/L (136-145) L Potassium Level 4.0 MMOL/L (3.5-5.1) Chloride Level 102 MMOL/L (98-107) Carbon Dioxide Level 20 MMOL/L (21-32) L Anion Gap 11 mmol/L (5-15) Blood Urea Nitrogen 28 mg/dL (7-18) H Creatinine 1.2 MG/DL (0.55-1.30) Estimat Glomerular Filtration Rate 59.9 mL/min (>60) Glucose Level 110 MG/DL (74-106) H Calcium Level 9.6 MG/DL (8.5-10.1) Total Bilirubin 0.4 MG/DL (0.2-1.0) Aspartate Amino Transf (AST/SGOT) 12 U/L (15-37) L Alanine Aminotransferase (ALT/SGPT) 19 U/L (12-78) Alkaline Phosphatase 116 U/L (46-116) Pro-B-Type Natriuretic Peptide 547 pg/mL (0-125) H Total Protein 7.7 G/DL (6.4-8.2) Albumin 2.9 G/DL (3.4-5.0) L Globulin 4.8 g/dL Albumin/Globulin Ratio 0.6 (1.0-2.7) L Current Medications Medications (Trade) Dose Ordered Sig/Wanda Route PRN Reason Start Time Stop Time Status Last Admin Dose Admin Acetaminophen (Tylenol) 650 mg Q4H PRN ORAL T>100.5 10/02/18 15:45 11/01/18 15:44 Chlorhexidine Gluconate (Jasmin-Hex 2%) 1 applic DAILY@2000 TOPIC 10/02/18 20:00 11/01/18 19:59 10/07/18 20:29 Dextrose (Dextrose 50%) 25 ml Q30M PRN IV Hypoglycemia 10/02/18 16:00 11/01/18 15:48 Dextrose (Dextrose 50%) 50 ml Q30M PRN IV hypoglycemia 10/02/18 16:00 11/01/18 15:59 Ertapenem 1 gm/ Sodium Chloride 55 ml @ 110 mls/hr Q24H IVPB 10/04/18 20:00 10/09/18 19:59 10/07/18 20:29 Levothyroxine Sodium (Synthroid) 50 mcg DAILY GT 10/03/18 09:00 11/02/18 08:59 10/08/18 08:53 Lorazepam (Ativan 2mg/ml 1ml) 2 mg Q2H PRN IV For Anxiety 10/02/18 15:45 10/09/18 15:44 Morphine Sulfate (Morphine Sulfate) 4 mg Q4H PRN IVP Severe Pain (Pain Scale 7-10) 10/02/18 15:45 10/09/18 15:44 Ondansetron HCl (Zofran) 4 mg Q6H PRN IVP Nausea & Vomiting 10/02/18 15:45 11/01/18 15:44 Pantoprazole (Protonix) 40 mg DAILY IV 10/03/18 09:00 11/02/18 08:59 10/08/18 08:53 Polyethylene Glycol (Miralax) 17 gm DAILYPRN PRN ORAL Constipation 10/02/18 15:45 11/01/18 15:44 10/06/18 12:47 Sucralfate (Carafate) 1 gm FOUR TIMES A DAY GT 10/02/18 18:00 11/01/18 17:59 10/08/18 08:53 John Fiore MD Oct 08, 2018 09:01
[2018-10-08 12:00] VITALS: BP 116/70
--- NOTE | 2018-10-08 12:04 | Diagnostic Imaging Report ---
Indication: Dyspnea Technique: One view of the chest Comparison: none Findings: Patient is rotated to the right. There is some atelectasis at the right lung base. Lungs and pleural spaces are otherwise clear. Normal heart size Impression: Right basilar atelectasis. No acute process otherwise
--- NOTE | 2018-10-08 13:22 | GI Progress Note ---
Assessment/Plan Problems: (1) GI bleed ICD Codes: K92.2 - Gastrointestinal hemorrhage, unspecified SNOMED: 31968350 (2) Severe protein-calorie malnutrition ICD Codes: E43 - Unspecified severe protein-calorie malnutrition SNOMED: 916328391 (3) Feeding by G-tube ICD Codes: Z93.1 - Gastrostomy status SNOMED: 389124830, 846141480 (4) Esophagitis ICD Codes: K20.9 - Esophagitis SNOMED: 86257238 (5) Anemia ICD Codes: D64.9 - Anemia, unspecified SNOMED: 236559000 (6) Upper GI bleed ICD Codes: K92.2 - Upper gastrointestinal hemorrhage SNOMED: 22311449 (7) Tracheostomy dependence ICD Codes: Z93.0 - Tracheostomy status SNOMED: 028804330, 153927236 (8) Iron deficiency ICD Codes: E61.1 - Iron deficiency SNOMED: 51523120 Status: stable Status Narrative Discussed with Dr. Wilson Assessment/Plan Status post endoscopy in July 2018 noted with GERD, diffuse ulcerative esophagitis, peptic esophageal stricture. G-tube changed at bedside yesterday OB stool positive Stable H&H G-tube feedings ppi BID + carafate prn transfusions anemia work up add OB stool monitor H&H, prn transfusions bowel regime fu labs The patient was seen and examined at bedside and all new and available data was reviewed in the patients chart. I agree with the above findings, impression and plan. (Patient seen earlier today. Signature stamp does not reflect patient encounter time.). - Vitaliy Wilson MD Subjective Subjective Limited Objective Last 24 Hour Vital Signs Date Time Temp Pulse Resp B/P (MAP) Pulse Ox O2 Delivery O2 Flow Rate FiO2 10/08/18 12:00 40 10/08/18 12:00 Mechanical Ventilator 10/08/18 11:17 72 16 40 10/08/18 09:20 73 16 40 10/08/18 08:00 98.4 89 16 123/73 (90) 99 10/08/18 08:00 Mechanical Ventilator 10/08/18 08:00 40 10/08/18 08:00 74 10/08/18 07:11 71 16 40 10/08/18 05:11 73 16 40 10/08/18 04:00 72 10/08/18 04:00 Mechanical Ventilator 10/08/18 04:00 40 10/08/18 04:00 98.1 71 16 137/71 (93) 100 10/08/18 03:12 69 16 40 10/08/18 00:47 71 16 40 10/08/18 00:00 Mechanical Ventilator 10/08/18 00:00 81 10/08/18 00:00 98.4 73 16 127/71 (89) 100 10/07/18 22:31 62 16 40 10/07/18 22:03 65 17 40 10/07/18 20:00 98.0 74 16 139/73 (95) 100 10/07/18 20:00 40 10/07/18 20:00 Mechanical Ventilator 10/07/18 20:00 75 10/07/18 18:49 67 16 40 10/07/18 17:20 66 16 40 10/07/18 16:00 40 10/07/18 16:00 67 10/07/18 16:00 Mechanical Ventilator 10/07/18 16:00 97.9 71 18 126/67 (86) 100 10/07/18 15:15 69 17 40 Intake and Output 10/07/18 10/08/18 19:00 07:00 Intake Total 280 ml 300 ml Output Total 500 ml 300 ml Balance -220 ml 0 ml Free Water 100 ml 100 ml Tube Feeding 180 ml 200 ml Output Urine Total 500 ml 300 ml # Bowel Movements 1 Laboratory Tests Test 10/07/18 19:00 10/08/18 03:20 Stool Occult Blood Positive (NEGATIVE) White Blood Count 10.2 K/UL (4.8-10.8) Red Blood Count 3.46 M/UL (4.70-6.10) L Hemoglobin 9.6 G/DL (14.2-18.0) L Hematocrit 29.0 % (42.0-52.0) L Mean Corpuscular Volume 84 FL (80-99) Mean Corpuscular Hemoglobin 27.7 PG (27.0-31.0) Mean Corpuscular Hemoglobin Concent 33.1 G/DL (32.0-36.0) Red Cell Distribution Width 14.8 % (11.6-14.8) Platelet Count 358 K/UL (150-450) Mean Platelet Volume 6.7 FL (6.5-10.1) Neutrophils (%) (Auto) 66.3 % (45.0-75.0) Lymphocytes (%) (Auto) 18.3 % (20.0-45.0) L Monocytes (%) (Auto) 10.0 % (1.0-10.0) Eosinophils (%) (Auto) 4.5 % (0.0-3.0) H Basophils (%) (Auto) 0.8 % (0.0-2.0) Sodium Level 133 MMOL/L (136-145) L Potassium Level 4.0 MMOL/L (3.5-5.1) Chloride Level 102 MMOL/L (98-107) Carbon Dioxide Level 20 MMOL/L (21-32) L Anion Gap 11 mmol/L (5-15) Blood Urea Nitrogen 28 mg/dL (7-18) H Creatinine 1.2 MG/DL (0.55-1.30) Estimat Glomerular Filtration Rate 59.9 mL/min (>60) Glucose Level 110 MG/DL (74-106) H Calcium Level 9.6 MG/DL (8.5-10.1) Total Bilirubin 0.4 MG/DL (0.2-1.0) Aspartate Amino Transf (AST/SGOT) 12 U/L (15-37) L Alanine Aminotransferase (ALT/SGPT) 19 U/L (12-78) Alkaline Phosphatase 116 U/L (46-116) Pro-B-Type Natriuretic Peptide 547 pg/mL (0-125) H Total Protein 7.7 G/DL (6.4-8.2) Albumin 2.9 G/DL (3.4-5.0) L Globulin 4.8 g/dL Albumin/Globulin Ratio 0.6 (1.0-2.7) L Height (Feet): 6 Height (Inches): 1.00 Weight (Pounds): 124 General Appearance: WD/WN, no apparent distress, alert Cardiovascular: normal rate Respiratory/Chest: normal breath sounds, no respiratory distress Abdominal Exam: normal bowel sounds, non tender, soft, GT site - Clean dry and intact Extremities: non-tender Emanuel Quesada NP Oct 08, 2018 13:22
--- NOTE | 2018-10-08 13:59 | General Progress Note ---
Assessment/Plan Problem List: (1) GIB (gastrointestinal bleeding) ICD Codes: K92.2 - Gastrointestinal hemorrhage, unspecified SNOMED: 51233731 (2) UTI (urinary tract infection) ICD Codes: N39.0 - Urinary tract infection, site not specified SNOMED: 12267199 (3) Respiratory failure, [id number] ICD Codes: J96.20 - Respiratory failure, mpkjy-xj-pjaqmbi SNOMED: 03821052 (4) Sepsis ICD Codes: A41.9 - Sepsis, unspecified organism SNOMED: 92212323 (5) Alzheimer's dementia ICD Codes: G30.9 - Alzheimer's disease, unspecified SNOMED: 66214239 Status: unchanged Assessment/Plan vent abx cbc bmp am dc plan Subjective Constitutional: Reports: weakness Allergies: Coded Allergies: NO KNOWN DRUG ALLERGIES (Verified Allergy, Unknown, 09/11/16) All Systems: reviewed and negative except above Subjective trach vent altered Objective Last 24 Hour Vital Signs Date Time Temp Pulse Resp B/P (MAP) Pulse Ox O2 Delivery O2 Flow Rate FiO2 10/08/18 12:00 40 10/08/18 12:00 Mechanical Ventilator 10/08/18 12:00 98.6 82 16 116/70 (85) 99 10/08/18 11:17 72 16 40 10/08/18 09:20 73 16 40 10/08/18 08:00 98.4 89 16 123/73 (90) 99 10/08/18 08:00 Mechanical Ventilator 10/08/18 08:00 40 10/08/18 08:00 74 10/08/18 07:11 71 16 40 10/08/18 05:11 73 16 40 10/08/18 04:00 72 10/08/18 04:00 Mechanical Ventilator 10/08/18 04:00 40 10/08/18 04:00 98.1 71 16 137/71 (93) 100 10/08/18 03:12 69 16 40 10/08/18 00:47 71 16 40 10/08/18 00:00 Mechanical Ventilator 10/08/18 00:00 81 10/08/18 00:00 98.4 73 16 127/71 (89) 100 10/07/18 22:31 62 16 40 10/07/18 22:03 65 17 40 10/07/18 20:00 98.0 74 16 139/73 (95) 100 10/07/18 20:00 40 10/07/18 20:00 Mechanical Ventilator 10/07/18 20:00 75 10/07/18 18:49 67 16 40 10/07/18 17:20 66 16 40 10/07/18 16:00 40 10/07/18 16:00 67 10/07/18 16:00 Mechanical Ventilator 10/07/18 16:00 97.9 71 18 126/67 (86) 100 10/07/18 15:15 69 17 40 Intake and Output 10/07/18 10/08/18 19:00 07:00 Intake Total 280 ml 300 ml Output Total 500 ml 300 ml Balance -220 ml 0 ml Free Water 100 ml 100 ml Tube Feeding 180 ml 200 ml Output Urine Total 500 ml 300 ml # Bowel Movements 1 Laboratory Tests 10/07/18 19:00: Stool Occult Blood Positive 10/08/18 03:20: White Blood Count 10.2, Red Blood Count 3.46L, Hemoglobin 9.6L, Hematocrit 29.0L , Mean Corpuscular Volume 84, Mean Corpuscular Hemoglobin 27.7, Mean Corpuscular Hemoglobin Concent 33.1, Red Cell Distribution Width 14.8, Platelet Count 358, Mean Platelet Volume 6.7, Neutrophils (%) (Auto) 66.3, Lymphocytes (% ) (Auto) 18.3L, Monocytes (%) (Auto) 10.0, Eosinophils (%) (Auto) 4.5H, Basophils (%) (Auto) 0.8, Sodium Level 133L, Potassium Level 4.0, Chloride Level 102, Carbon Dioxide Level 20L, Anion Gap 11, Blood Urea Nitrogen 28H, Creatinine 1.2, Estimat Glomerular Filtration Rate 59.9, Glucose Level 110H, Calcium Level 9.6, Total Bilirubin 0.4, Aspartate Amino Transf (AST/SGOT) 12L, Alanine Aminotransferase (ALT/SGPT) 19, Alkaline Phosphatase 116, Pro-B-Type Natriuretic Peptide 547H, Total Protein 7.7, Albumin 2.9L, Globulin 4.8, Albumin /Globulin Ratio 0.6L Height (Feet): 6 Height (Inches): 1.00 Weight (Pounds): 124 General Appearance: lethargic EENT: normal ENT inspection Neck: normal alignment Cardiovascular: normal peripheral pulses, normal rate, regular rhythm Respiratory/Chest: chest wall non-tender, lungs clear, normal breath sounds Abdomen: normal bowel sounds, non tender, soft Extremities: normal inspection Edema: no edema noted Arm (L), no edema noted Arm (R), no edema noted Leg (L), no edema noted Leg (R), no edema noted Pedal (L), no edema noted Pedal (R), no edema noted Generalized Neurologic: motor weakness Skin: normal pigmentation, warm/dry Gato Viveros DO Oct 08, 2018 13:59
[2018-10-08 16:00] VITALS: BP 135/63
[2018-10-08 20:00] VITALS: BP 109/84
[2018-10-08] MEDS: Dyna-Hex 2% Top Sol 2oz TOPIC SCH (20:13)
[2018-10-08] MEDS: Ertapenem 1 GM in NS 55 ML IVPB SCH (20:13)
[2018-10-09] VITALS: BP 124/89
[2018-10-09 04:00] VITALS: BP 139/52
[2018-10-09 05:41] LABS: BASOPHILS % (AUTO) 0.6 % (0.0-2.0); EOSINOPHILS % (AUTO) 3.7 % (0.0-3.0); HEMATOCRIT 30.2 % (42.0-52.0); HEMOGLOBIN 9.9 G/DL (14.2-18.0); MEAN CORPUSCULAR VOLUME 84 FL (80-99); MONOCYTES % (AUTO) 9.8 % (1.0-10.0); PLATELET COUNT 394 K/UL (150-450); RED BLOOD COUNT 3.61 M/UL (4.70-6.10); RED CELL DISTRIBUTION WIDTH 14.7 % (11.6-14.8); WHITE BLOOD COUNT 10.1 K/UL (4.8-10.8)
[2018-10-09 06:09] LABS: INR 1.1 (0.9-1.1)
[2018-10-09 06:56] LABS: ALANINE AMINOTRANSFERASE 21 U/L (12-78); ALBUMIN/GLOBULIN RATIO 0.6 (1.0-2.7); ALKALINE PHOSPHATASE 118 U/L (46-116); ANION GAP 12 mmol/L (5-15); ASPARTATE AMINO TRANSFERASE 15 U/L (15-37); BILIRUBIN,TOTAL 0.3 MG/DL (0.2-1.0); BLOOD UREA NITROGEN 32 mg/dL (7-18); CALCIUM 9.6 MG/DL (8.5-10.1); CARBON DIOXIDE 20 MMOL/L (21-32); CHLORIDE 104 MMOL/L (98-107); CREATININE 1.3 MG/DL (0.55-1.30); PHOSPHORUS 3.9 MG/DL (2.5-4.9); POTASSIUM 4.1 MMOL/L (3.5-5.1); SODIUM 136 MMOL/L (136-145)
[2018-10-09 08:00] VITALS: BP 132/62
[2018-10-09] MEDS: Pantoprazole Inj IV SCH (08:59)
[2018-10-09] MEDS: Sucralfate 1gm tab GT SCH ×2 (08:59→12:44)
[2018-10-09 12:00] VITALS: BP 119/62
--- NOTE | 2018-10-09 13:29 | GI Progress Note ---
Assessment/Plan Problems: (1) GI bleed ICD Codes: K92.2 - Gastrointestinal hemorrhage, unspecified SNOMED: 61552823 (2) Severe protein-calorie malnutrition ICD Codes: E43 - Unspecified severe protein-calorie malnutrition SNOMED: 171900761 (3) Feeding by G-tube ICD Codes: Z93.1 - Gastrostomy status SNOMED: 426357074, 785223649 (4) Esophagitis ICD Codes: K20.9 - Esophagitis SNOMED: 83663153 (5) Anemia ICD Codes: D64.9 - Anemia, unspecified SNOMED: 211136319 (6) Upper GI bleed ICD Codes: K92.2 - Upper gastrointestinal hemorrhage SNOMED: 09163902 (7) Tracheostomy dependence ICD Codes: Z93.0 - Tracheostomy status SNOMED: 948803579, 878363930 (8) Iron deficiency ICD Codes: E61.1 - Iron deficiency SNOMED: 17737073 Status: stable Status Narrative Discussed with Dr. Wilson Assessment/Plan Status post endoscopy in July 2018 noted with GERD, diffuse ulcerative esophagitis, peptic esophageal stricture. G-tube replaced at bedside OB stool positive Stable H&H G-tube feedings ppi BID + carafate prn transfusions anemia work up add OB stool monitor H&H, prn transfusions bowel regime fu labs The patient was seen and examined at bedside and all new and available data was reviewed in the patients chart. I agree with the above findings, impression and plan. (Patient seen earlier today. Signature stamp does not reflect patient encounter time.). - Vitaliy Wilson MD Subjective Subjective Limited Objective Last 24 Hour Vital Signs Date Time Temp Pulse Resp B/P (MAP) Pulse Ox O2 Delivery O2 Flow Rate FiO2 10/09/18 12:59 83 10/09/18 12:30 80 21 40 10/09/18 12:00 98.2 80 18 119/62 (81) 100 10/09/18 12:00 Mechanical Ventilator 10/09/18 12:00 40 10/09/18 10:30 79 18 40 10/09/18 09:05 84 19 40 10/09/18 08:00 98.1 89 20 132/62 (85) 8 10/09/18 08:00 77 10/09/18 07:59 40 10/09/18 07:57 Mechanical Ventilator 10/09/18 07:00 64 16 40 10/09/18 05:04 78 21 40 10/09/18 04:00 98.6 83 21 139/52 (81) 100 10/09/18 04:00 Mechanical Ventilator 10/09/18 04:00 40 10/09/18 03:47 82 10/09/18 02:59 80 23 40 10/09/18 00:54 70 24 40 10/09/18 00:00 98.6 99 20 124/89 (101) 100 10/09/18 00:00 Mechanical Ventilator 10/08/18 23:22 97 10/08/18 22:45 80 19 40 10/08/18 21:00 72 16 40 10/08/18 20:00 98.8 88 19 109/84 (92) 100 10/08/18 20:00 Mechanical Ventilator 10/08/18 20:00 40 10/08/18 19:30 84 10/08/18 19:12 77 20 40 10/08/18 16:50 70 20 40 10/08/18 16:00 Mechanical Ventilator 10/08/18 16:00 98.6 83 16 135/63 (87) 96 10/08/18 16:00 40 10/08/18 16:00 74 10/08/18 15:02 70 17 40 Intake and Output 10/08/18 10/09/18 19:00 07:00 Intake Total 670 ml 805 ml Balance 670 ml 805 ml Free Water 100 ml IV Total 55 ml Tube Feeding 670 ml 650 ml Laboratory Tests Test 10/09/18 03:20 White Blood Count 10.1 K/UL (4.8-10.8) Red Blood Count 3.61 M/UL (4.70-6.10) L Hemoglobin 9.9 G/DL (14.2-18.0) L Hematocrit 30.2 % (42.0-52.0) L Mean Corpuscular Volume 84 FL (80-99) Mean Corpuscular Hemoglobin 27.5 PG (27.0-31.0) Mean Corpuscular Hemoglobin Concent 32.8 G/DL (32.0-36.0) Red Cell Distribution Width 14.7 % (11.6-14.8) Platelet Count 394 K/UL (150-450) Mean Platelet Volume 7.0 FL (6.5-10.1) Neutrophils (%) (Auto) 64.0 % (45.0-75.0) Lymphocytes (%) (Auto) 22.0 % (20.0-45.0) Monocytes (%) (Auto) 9.8 % (1.0-10.0) Eosinophils (%) (Auto) 3.7 % (0.0-3.0) H Basophils (%) (Auto) 0.6 % (0.0-2.0) Prothrombin Time 11.3 SEC (9.30-11.50) Prothromb Time International Ratio 1.1 (0.9-1.1) Activated Partial Thromboplast Time 33 SEC (23-33) Sodium Level 136 MMOL/L (136-145) Potassium Level 4.1 MMOL/L (3.5-5.1) Chloride Level 104 MMOL/L (98-107) Carbon Dioxide Level 20 MMOL/L (21-32) L Anion Gap 12 mmol/L (5-15) Blood Urea Nitrogen 32 mg/dL (7-18) H Creatinine 1.3 MG/DL (0.55-1.30) Estimat Glomerular Filtration Rate 54.6 mL/min (>60) Glucose Level 104 MG/DL (74-106) Calcium Level 9.6 MG/DL (8.5-10.1) Phosphorus Level 3.9 MG/DL (2.5-4.9) Magnesium Level 2.0 MG/DL (1.8-2.4) Total Bilirubin 0.3 MG/DL (0.2-1.0) Aspartate Amino Transf (AST/SGOT) 15 U/L (15-37) Alanine Aminotransferase (ALT/SGPT) 21 U/L (12-78) Alkaline Phosphatase 118 U/L (46-116) H Total Protein 7.7 G/DL (6.4-8.2) Albumin 3.0 G/DL (3.4-5.0) L Globulin 4.7 g/dL Albumin/Globulin Ratio 0.6 (1.0-2.7) L Height (Feet): 6 Height (Inches): 1.00 Weight (Pounds): 132 General Appearance: no apparent distress Cardiovascular: normal rate Respiratory/Chest: normal breath sounds, no respiratory distress Abdominal Exam: normal bowel sounds, non tender, soft, GT site - Replaced by bedside Extremities: non-tender Emanuel Quesada NP Oct 09, 2018 13:29
--- NOTE | 2018-10-09 13:39 | General Progress Note ---
Assessment/Plan Problem List: (1) GIB (gastrointestinal bleeding) ICD Codes: K92.2 - Gastrointestinal hemorrhage, unspecified SNOMED: 88715892 (2) UTI (urinary tract infection) ICD Codes: N39.0 - Urinary tract infection, site not specified SNOMED: 22456504 (3) Respiratory failure, ooteo-hx-herqaag ICD Codes: J96.20 - Respiratory failure, xncra-mb-vtfpcnl SNOMED: 49003173 (4) Sepsis ICD Codes: A41.9 - Sepsis, unspecified organism SNOMED: 45371423 (5) Alzheimer's dementia ICD Codes: G30.9 - Alzheimer's disease, unspecified SNOMED: 27194463 Status: stable, progressing Assessment/Plan vent abx dc if clear Subjective Constitutional: Reports: weakness Allergies: Coded Allergies: NO KNOWN DRUG ALLERGIES (Verified Allergy, Unknown, 09/11/16) All Systems: reviewed and negative except above Subjective trach vent altered Objective Last 24 Hour Vital Signs Date Time Temp Pulse Resp B/P (MAP) Pulse Ox O2 Delivery O2 Flow Rate FiO2 10/09/18 12:59 83 10/09/18 12:30 80 21 40 10/09/18 12:00 98.2 80 18 119/62 (81) 100 10/09/18 12:00 Mechanical Ventilator 10/09/18 12:00 40 10/09/18 10:30 79 18 40 10/09/18 09:05 84 19 40 10/09/18 08:00 98.1 89 20 132/62 (85) 8 10/09/18 08:00 77 10/09/18 07:59 40 10/09/18 07:57 Mechanical Ventilator 10/09/18 07:00 64 16 40 10/09/18 05:04 78 21 40 10/09/18 04:00 98.6 83 21 139/52 (81) 100 10/09/18 04:00 Mechanical Ventilator 10/09/18 04:00 40 10/09/18 03:47 82 10/09/18 02:59 80 23 40 10/09/18 00:54 70 24 40 10/09/18 00:00 98.6 99 20 124/89 (101) 100 10/09/18 00:00 Mechanical Ventilator 10/08/18 23:22 97 10/08/18 22:45 80 19 40 10/08/18 21:00 72 16 40 10/08/18 20:00 98.8 88 19 109/84 (92) 100 10/08/18 20:00 Mechanical Ventilator 10/08/18 20:00 40 10/08/18 19:30 84 10/08/18 19:12 77 20 40 10/08/18 16:50 70 20 40 10/08/18 16:00 Mechanical Ventilator 10/08/18 16:00 98.6 83 16 135/63 (87) 96 10/08/18 16:00 40 10/08/18 16:00 74 10/08/18 15:02 70 17 40 Intake and Output 10/08/18 10/09/18 19:00 07:00 Intake Total 670 ml 805 ml Balance 670 ml 805 ml Free Water 100 ml IV Total 55 ml Tube Feeding 670 ml 650 ml Laboratory Tests 10/09/18 03:20: White Blood Count 10.1, Red Blood Count 3.61L, Hemoglobin 9.9L, Hematocrit 30.2L , Mean Corpuscular Volume 84, Mean Corpuscular Hemoglobin 27.5, Mean Corpuscular Hemoglobin Concent 32.8, Red Cell Distribution Width 14.7, Platelet Count 394, Mean Platelet Volume 7.0, Neutrophils (%) (Auto) 64.0, Lymphocytes (% ) (Auto) 22.0, Monocytes (%) (Auto) 9.8, Eosinophils (%) (Auto) 3.7H, Basophils (%) (Auto) 0.6, Prothrombin Time 11.3, Prothromb Time International Ratio 1.1, Activated Partial Thromboplast Time 33, Sodium Level 136, Potassium Level 4.1, Chloride Level 104, Carbon Dioxide Level 20L, Anion Gap 12, Blood Urea Nitrogen 32H, Creatinine 1.3, Estimat Glomerular Filtration Rate 54.6, Glucose Level 104 , Calcium Level 9.6, Phosphorus Level 3.9, Magnesium Level 2.0, Total Bilirubin 0.3, Aspartate Amino Transf (AST/SGOT) 15, Alanine Aminotransferase (ALT/SGPT) 21, Alkaline Phosphatase 118H, Total Protein 7.7, Albumin 3.0L, Globulin 4.7, Albumin/Globulin Ratio 0.6L Height (Feet): 6 Height (Inches): 1.00 Weight (Pounds): 132 General Appearance: lethargic EENT: normal ENT inspection Neck: normal alignment Cardiovascular: normal peripheral pulses, normal rate, regular rhythm Respiratory/Chest: chest wall non-tender, lungs clear, normal breath sounds Abdomen: normal bowel sounds, non tender, soft Extremities: normal inspection Edema: no edema noted Arm (L), no edema noted Arm (R), no edema noted Leg (L), no edema noted Leg (R), no edema noted Pedal (L), no edema noted Pedal (R), no edema noted Generalized Neurologic: motor weakness Skin: normal pigmentation, warm/dry Gato Viveros DO Oct 09, 2018 13:39
[2018-10-09] MEDS ORDERED: Flu Vaccine High-Dose for Pts 65 Years and Older IM ONE (14:00)
[2018-10-09] MEDS ORDERED: NS 275ml ONE (14:04)
[2018-10-09] MEDS ORDERED: Tubing IV Secondary IV ONE (14:04)
--- NOTE | 2018-10-09 14:43 | Infectious Diseases Prog Note ---
Assessment/Plan Assessment/Plan Abx: IV Vancomycin 10/02- Cefepime 10/02- Assessment: Probable UTI -u.a wbc 30-40, nit neg, leuk +3; ucx 40-50k P, stuarti, probabe AMP-C (S Ceftriaxone, Zosyn, Meropenem; R Ceftazidime, Ancef) Afebrile Leukocytosis, improving -CXR: No acute process. Findings as noted Recurreng UGIB Hx of ESBL UTI 07/2018, s/p Rx 08/01/18 UCxESBL Proteus Sen to erta, zosyn and bactrim; 08/02/18 UCx ESBL P.mirabilis Hx of ESBL and S. maltophilia PNA 07/2018, s/p Rx -sp cx ESBL P.mirabils (S Bactrim), S. maltophilia (S Bactrim) - 10/05/18 Sputum with Acetobacter but this is most likely a colonizer given response to Erta Hx Constipation Chronic respiratory failure trach/vent dependant Hypothyroidism GERD Hypertension Hx C. diff Dysphagia s/p G-tube Anemia. 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 Subjective Allergies: Coded Allergies: NO KNOWN DRUG ALLERGIES (Verified Allergy, Unknown, 09/11/16) Subjective LAKISHA Afebrile No Leukocytosis Objective Vital Signs Last 24 Hour Vital Signs Date Time Temp Pulse Resp B/P (MAP) Pulse Ox O2 Delivery O2 Flow Rate FiO2 10/09/18 12:59 83 10/09/18 12:30 80 21 40 10/09/18 12:00 98.2 80 18 119/62 (81) 100 10/09/18 12:00 Mechanical Ventilator 10/09/18 12:00 40 10/09/18 10:30 79 18 40 10/09/18 09:05 84 19 40 10/09/18 08:00 98.1 89 20 132/62 (85) 8 10/09/18 08:00 77 10/09/18 07:59 40 10/09/18 07:57 Mechanical Ventilator 10/09/18 07:00 64 16 40 10/09/18 05:04 78 21 40 10/09/18 04:00 98.6 83 21 139/52 (81) 100 10/09/18 04:00 Mechanical Ventilator 10/09/18 04:00 40 10/09/18 03:47 82 10/09/18 02:59 80 23 40 10/09/18 00:54 70 24 40 10/09/18 00:00 98.6 99 20 124/89 (101) 100 10/09/18 00:00 Mechanical Ventilator 10/08/18 23:22 97 10/08/18 22:45 80 19 40 10/08/18 21:00 72 16 40 10/08/18 20:00 98.8 88 19 109/84 (92) 100 10/08/18 20:00 Mechanical Ventilator 10/08/18 20:00 40 10/08/18 19:30 84 10/08/18 19:12 77 20 40 10/08/18 16:50 70 20 40 10/08/18 16:00 Mechanical Ventilator 10/08/18 16:00 98.6 83 16 135/63 (87) 96 10/08/18 16:00 40 10/08/18 16:00 74 10/08/18 15:02 70 17 40 Height (Feet): 6 Height (Inches): 1.00 Weight (Pounds): 132 Objective General: Awake, On vent 40% O2 Respiratory: CATB, No Wheezing Cardiovascular: normal peripheral pulses, regular rate, rhythm Gastrointestinal: soft, ND Neurologic: motor weakness Laboratory Tests Test 10/09/18 03:20 White Blood Count 10.1 K/UL (4.8-10.8) Red Blood Count 3.61 M/UL (4.70-6.10) L Hemoglobin 9.9 G/DL (14.2-18.0) L Hematocrit 30.2 % (42.0-52.0) L Mean Corpuscular Volume 84 FL (80-99) Mean Corpuscular Hemoglobin 27.5 PG (27.0-31.0) Mean Corpuscular Hemoglobin Concent 32.8 G/DL (32.0-36.0) Red Cell Distribution Width 14.7 % (11.6-14.8) Platelet Count 394 K/UL (150-450) Mean Platelet Volume 7.0 FL (6.5-10.1) Neutrophils (%) (Auto) 64.0 % (45.0-75.0) Lymphocytes (%) (Auto) 22.0 % (20.0-45.0) Monocytes (%) (Auto) 9.8 % (1.0-10.0) Eosinophils (%) (Auto) 3.7 % (0.0-3.0) H Basophils (%) (Auto) 0.6 % (0.0-2.0) Prothrombin Time 11.3 SEC (9.30-11.50) Prothromb Time International Ratio 1.1 (0.9-1.1) Activated Partial Thromboplast Time 33 SEC (23-33) Sodium Level 136 MMOL/L (136-145) Potassium Level 4.1 MMOL/L (3.5-5.1) Chloride Level 104 MMOL/L (98-107) Carbon Dioxide Level 20 MMOL/L (21-32) L Anion Gap 12 mmol/L (5-15) Blood Urea Nitrogen 32 mg/dL (7-18) H Creatinine 1.3 MG/DL (0.55-1.30) Estimat Glomerular Filtration Rate 54.6 mL/min (>60) Glucose Level 104 MG/DL (74-106) Calcium Level 9.6 MG/DL (8.5-10.1) Phosphorus Level 3.9 MG/DL (2.5-4.9) Magnesium Level 2.0 MG/DL (1.8-2.4) Total Bilirubin 0.3 MG/DL (0.2-1.0) Aspartate Amino Transf (AST/SGOT) 15 U/L (15-37) Alanine Aminotransferase (ALT/SGPT) 21 U/L (12-78) Alkaline Phosphatase 118 U/L (46-116) H Total Protein 7.7 G/DL (6.4-8.2) Albumin 3.0 G/DL (3.4-5.0) L Globulin 4.7 g/dL Albumin/Globulin Ratio 0.6 (1.0-2.7) L Current Medications Medications (Trade) Dose Ordered Sig/Wanda Route PRN Reason Start Time Stop Time Status Last Admin Dose Admin Acetaminophen (Tylenol) 650 mg Q4H PRN ORAL T>100.5 10/02/18 15:45 11/01/18 15:44 Chlorhexidine Gluconate (Jasmin-Hex 2%) 1 applic DAILY@2000 TOPIC 10/02/18 20:00 11/01/18 19:59 10/08/18 20:13 Dextrose (Dextrose 50%) 25 ml Q30M PRN IV Hypoglycemia 10/02/18 16:00 11/01/18 15:48 Dextrose (Dextrose 50%) 50 ml Q30M PRN IV hypoglycemia 10/02/18 16:00 11/01/18 15:59 Ertapenem 1 gm/ Sodium Chloride 55 ml @ 110 mls/hr Q24H IVPB 10/04/18 20:00 10/09/18 23:59 10/08/18 20:13 Levothyroxine Sodium (Synthroid) 50 mcg DAILY GT 10/03/18 09:00 11/02/18 08:59 10/09/18 08:59 Lorazepam (Ativan 2mg/ml 1ml) 2 mg Q2H PRN IV For Anxiety 10/02/18 15:45 10/09/18 15:44 Morphine Sulfate (Morphine Sulfate) 4 mg Q4H PRN IVP Severe Pain (Pain Scale 7-10) 10/02/18 15:45 10/09/18 15:44 Ondansetron HCl (Zofran) 4 mg Q6H PRN IVP Nausea & Vomiting 10/02/18 15:45 11/01/18 15:44 Pantoprazole (Protonix) 40 mg DAILY IV 10/03/18 09:00 11/02/18 08:59 10/09/18 08:59 Polyethylene Glycol (Miralax) 17 gm DAILYPRN PRN ORAL Constipation 10/02/18 15:45 11/01/18 15:44 10/06/18 12:47 Sucralfate (Carafate) 1 gm FOUR TIMES A DAY GT 10/02/18 18:00 11/01/18 17:59 10/09/18 12:44 John Fiore MD Oct 09, 2018 14:43
--- NOTE | 2018-10-10 14:42 | Discharge Summary ---
Discharge Summary Discharge Summary _ DATE OF ADMISSION: 10/02/2018 DATE OF DISCHARGE: 10/09/2018 DISCHARGED BY: Dr. Gato Viveros CONSULTANTS: Dr. John Keating BRIEF HOSPITAL COURSE: Patient is a 68-year-old male from [facility], presented to ED for evaluation of increased WBC. Patient reportedly had one episode of coffee- ground emesis. Patient is chronically on vent and G-tube dependent. He has history of type 2 diabetes mellitus. History was markedly limited by patient's mental status. On evaluation at the ED, vital signs were stable. Blood work showed leukocytosis, WBC was elevated to 19.9. Hemoglobin was 10, hematocrit 31. Electrolytes were normal. Urinalysis showed 2+ protein, 4+ blood, 3+ leukocyte esterase, 10-15 RBC, 30-40 WBC. EKG was in normal sinus rhythm. Chest x-ray showed bilateral lower congestion. He was started empirically on IV antibiotics. He was then admitted for evaluation of sepsis and GI bleed. Patient was restarted on IV vancomycin and cefepime. ID was consulted. During last admission, he was treated with ESBL UTI at that time. IV vancomycin was discontinued. Cefepime was switched to meropenem given prior history of ESBL. He was continued on vent support. He was closely followed by clinical trial leader. GI was consulted for evaluation of GI bleed. There was reported coffee-ground emesis at the facility. Patient had an endoscopy done on July 2018 and was noted to have GERD, diffuse ulcerative esophagitis, peptic esophageal strictures. He was placed on n.p.o. He was given IV fluids. He was given proton pump inhibitors twice daily and Carafate. Hemoglobin levels were monitored. Blood culture did not isolate any growth. Urine culture with growth of providencia with colony count 40,000-50,000. Antibiotic was switched to ertapenem for probable AMpc-C UTI. He was eventually started on tube feedings. Stool OB was positive, however H&H was stable. He did not require any transfusion. Sputum culture showed a Acinetobacter, but most likely colonizer given response to ertapenem. There was no leukocytosis. Patient was afebrile. He was eventually discharged back to snf. FINAL DIAGNOSES: Providencia UTI Recurrent upper GI bleed Chronic respiratory failure on trach and vent History of ESBL UTI The of ESBL and S. maltophilia pneumonia Constipation Hypothyroidism GERD Hypertension Dysphagia on G-tube Anemia CVA/TIA with hemiplegia Functional quadriplegia Encephalopathy Coronary artery disease Chronic CHF Type 2 diabetes mellitus Severe esophagitis Schizoaffective disease Severe protein calorie malnutrition DISPOSITION: Patient was discharged back to [place]. I have been assigned to complete a discharge summary on this account, I was not involved with the patient's management. Yuly Montemayor NP Oct 10, 2018 14:42
== END 2018-10-09 16:00 | DRG 870 ==
LOC: EDUNIT# 13:25 → EDBD 13:25 → EMR 14:05 → 2W 15:05 → EDBEDREQ 15:15 → ENRESERV 15:17 → EDBEDREQ 15:18
PROC: 5A1955Z Respiratory Ventilation, Greater than 96 Consecutive Hours (ICD-10-PCS; principal; 2018-10-02)
DX: A41.9 Sepsis, unspecified organism (principal); E43 Unspecified severe protein-calorie malnutrition; R53.2 Functional quadriplegia; J96.20 Acute and chronic respiratory failure, unspecified whether with hypoxia or hypercapnia; K92.2 Gastrointestinal hemorrhage, unspecified; N39.0 Urinary tract infection, site not specified; Z99.11 Dependence on respirator [ventilator] status; I69.359 Hemiplegia and hemiparesis following cerebral infarction affecting unspecified side; Z43.1 Encounter for attention to gastrostomy; E03.9 Hypothyroidism, unspecified; D64.9 Anemia, unspecified; G30.9 Alzheimer's disease, unspecified; F02.80 Dementia in other diseases classified elsewhere, unspecified severity, without behavioral disturbance, psychotic disturbance, mood disturbance, and anxiety; B96.89 Other specified bacterial agents as the cause of diseases classified elsewhere; Z43.0 Encounter for attention to tracheostomy; I25.10 Atherosclerotic heart disease of native coronary artery without angina pectoris; E11.9 Type 2 diabetes mellitus without complications; K59.00 Constipation, unspecified; F25.9 Schizoaffective disorder, unspecified; I50.9 Heart failure, unspecified; K20.9 Esophagitis, unspecified; K21.9 Gastro-esophageal reflux disease without esophagitis
CPT/HCPCS: 36415; 71045; 74018; 80048; 80053; 80069; 81003; 82270; 82550; 82553; 83605; 83735; 83880; 84100; 84484; 85007; 85025; 85610; 85730; 86850; 86900; 86901; 87040; 87070; 87081; 87086; 87181; 87205; 93005; 93970; 94002; 94003; 94664; 96361; 96374; 99285

== ENCOUNTER 2018-10-28 13:12 | Inpatient (IN) | payer MEDICARE ==
[~2018-10-28] VITALS: Ht 160 cm; Wt 60.8 kg
[2018-10-28 13:20] VITALS: BP 120/95
--- NOTE | 2018-10-28 13:20 | NUR ---
ED Nurse Note: Brought in by BRANDON from [facility] [place] due to abnormal lab taken yesterday- WBC 22.15 and K5.3. Vent to dependent: Portex 8, AC 16 TV 600 FiO2 40%, PEEP 5. Opens eyes but nonverbal.
--- NOTE | 2018-10-28 13:34 | NUR ---
HAND-OFF: Report given to ODILIA Tovar.
--- NOTE | 2018-10-28 13:38 | NUR ---
ED Nurse Note: RECEIVED REPORT FROM RN Saji, pt has trach, gtube, abd mildy distended and firm, active BS, on diaper, bm x1, pt cleaned and changed, noted excoriation marquez on BUE, BLE, posterior back and abd and lateral sides, no drainage. noted small possible pressure ulcer on right lateral foot area with black scab, no drainage, not open at this time, picture taken and uploaded. will cont monitor. pt suctioned.
--- NOTE | 2018-10-28 13:43 | Emergency Room Report ---
History of Present Illness General Chief Complaint: Abnormal Labs Source: Patient Present Illness HPI Patient is sent in from [facility] with elevated white count and potassium. The patient is unable to give a history. He is ventilator dependent. Patient admitted September 2018 for upper GI bleed. Discharge diagnoses: Providencia UTI Recurrent upper GI bleed Chronic respiratory failure on trach and vent History of ESBL UTI The of ESBL and S. maltophilia pneumonia Constipation Hypothyroidism GERD Hypertension Dysphagia on G-tube Anemia CVA/TIA with hemiplegia Functional quadriplegia Encephalopathy Coronary artery disease Chronic CHF Type 2 diabetes mellitus Severe esophagitis Schizoaffective disease Severe protein calorie malnutrition Allergies: Coded Allergies: NO KNOWN DRUG ALLERGIES (Verified Allergy, Unknown, 09/11/16) Patient History Limited by: medical condition Past Medical History: see triage record, old chart reviewed Past Surgical History: other - Tracheostomy, gastrostomy tube Social History Narrative [facility] Reviewed Nursing Documentation: PMH: Agreed; PSxH: Agreed Nursing Documentation-PMH Past Medical History: No History, Except For Hx Cardiac Problems: Yes Hx Hypertension: Yes Hx Pacemaker: No Hx Asthma: Yes Hx COPD: No - vent dependent Hx Diabetes: Yes - DM II Hx Cancer: No Hx Gastrointestinal Problems: Yes Hx Dialysis: Yes Hx Neurological Problems: Yes Hx Cerebrovascular Accident: Yes Hx Transient Ischemic Attacks: Yes Hx Dementia: Yes Hx Alzheimer's Disease: Yes Hx Parkinson's Disease: Yes Hx Encephalitis: Yes Hx Seizures: Yes Hx Epilepsy: Yes Hx Paralysis: Yes - HEMIPLEGIA Hx Memory Loss: Yes Hx Concentration Difficulty: Yes Hx Speech Problem: Yes Hx Aphasia: Yes Hx Weakness: Yes Hx Fatigue: Yes Hx Neurologic Surgery: No Hx Brain Shunt: No Review of Systems All Other Systems: limited Physical Exam Vital Signs Date Time Temp Pulse Resp B/P (MAP) Pulse Ox O2 Delivery O2 Flow Rate FiO2 10/28/18 13:12 87 20 118/82 96 Mechanical Ventilator 10/28/18 13:20 40 10/28/18 13:39 60.0 General Appearance: alert, thin, Chronically Ill Head: normocephalic, atraumatic Eyes: bilateral eye normal inspection, bilateral eye PERRL ENT: moist mucus membranes Neck: supple, tracheotomy Respiratory: rhonchi Cardiovascular #1: no edema, tachycardia Cardiovascular #2: 2+ radial (R), 2+ femoral (R) Gastrointestinal: non tender, soft, decreased bowel sounds Genitourinary: penis normal Musculoskeletal: other - Contractures Neurologic: responsive, sensory intact, motor weakness Psychiatric: other - Vegetative state Skin: other - Intertrigo, decubitus left lateral foot stage II Procedures Central Line Central Line : Consent: Emergent Central Line Lumen: triple Maximal Sterile Barrier Tech: yes cap, yes mask, yes sterile gown, yes sterile gloves, yes large sterile sheet, yes hand hygiene, yes chlorhexidine prep Central Line Postion: internal jugular (R) Anesthesia: None Complications: Arterial stick and unable to thread wire Attempts: Other - for Patient Tolerated: Well Progress Ultrasound used. Unable to thread wire. Medical Decision Making Diagnostic Impression: Primary Impression: Sepsis Qualified Codes: A41.9 - Sepsis, unspecified organism Additional Impressions: UTI (urinary tract infection) Qualified Codes: N39.0 - Urinary tract infection, site not specified Renal insufficiency Vegetative state ER Course Patient sent in for elevated white count and high potassium. Differential includes renal failure, sepsis, acute myocardial infarction amongst others. Evaluation will be with EKG, chest x-ray and labs. The patient's placed on a ventilator. Due to lack of IV access a central line is started. Sepsis re-evaluation 14:30 less tachycardic mentation unchanged, good cap fill. PICC line ordered as unable to get CVP. WBC elevated. Urine with pyuria. Unable to determine if pulmonary or urinary source of infection Antibiotics begun. Tylenol given. PICC in place. Improved but very ill. Admit SDU Dr. Viveros. Contact Dr. Keating. Laboratory Tests Test 10/28/18 13:40 White Blood Count 23.9 K/UL (4.8-10.8) *H Red Blood Count 3.76 M/UL (4.70-6.10) L Hemoglobin 10.4 G/DL (14.2-18.0) L Hematocrit 31.5 % (42.0-52.0) L Mean Corpuscular Volume 84 FL (80-99) Mean Corpuscular Hemoglobin 27.8 PG (27.0-31.0) Mean Corpuscular Hemoglobin Concent 33.1 G/DL (32.0-36.0) Red Cell Distribution Width 14.3 % (11.6-14.8) Platelet Count 396 K/UL (150-450) Mean Platelet Volume 7.2 FL (6.5-10.1) Neutrophils (%) (Auto) % (45.0-75.0) Lymphocytes (%) (Auto) % (20.0-45.0) Monocytes (%) (Auto) % (1.0-10.0) Eosinophils (%) (Auto) % (0.0-3.0) Basophils (%) (Auto) % (0.0-2.0) Differential Total Cells Counted 100 Neutrophils % (Manual) 87 % (45-75) H Lymphocytes % (Manual) 9 % (20-45) L Monocytes % (Manual) 4 % (1-10) Eosinophils % (Manual) 0 % (0-3) Basophils % (Manual) 0 % (0-2) Band Neutrophils 0 % (0-8) Platelet Estimate Adequate Platelet Morphology Normal Red Blood Cell Morphology Normal Urine Color Yellow Urine Appearance Clear Urine pH 7 (4.5-8.0) Urine Specific [place] 1.010 (1.005-1.035) Urine Protein 2+ (NEGATIVE) H Urine Glucose (UA) Negative (NEGATIVE) Urine Ketones Negative (NEGATIVE) Urine Blood 2+ (NEGATIVE) H Urine Nitrite Negative (NEGATIVE) Urine Bilirubin Negative (NEGATIVE) Urine Urobilinogen Normal MG/DL (0.0-1.0) Urine Leukocyte Esterase 3+ (NEGATIVE) H Urine RBC 5-10 /HPF (0 - 0) H Urine WBC 10-15 /HPF (0 - 0) H Urine Squamous Epithelial Cells None /LPF (NONE/OCC) Urine Uric Acid Crystals Few /LPF (NONE) H Urine Bacteria Moderate /HPF (NONE) H Sodium Level 131 MMOL/L (136-145) L Potassium Level 4.8 MMOL/L (3.5-5.1) Chloride Level 93 MMOL/L (98-107) L Carbon Dioxide Level 26 MMOL/L (21-32) Anion Gap 12 mmol/L (5-15) Blood Urea Nitrogen 33 mg/dL (7-18) H Creatinine 1.3 MG/DL (0.55-1.30) Estimate Glomerular Filtration Rate 54.6 mL/min (>60) Glucose Level 125 MG/DL (74-106) H Lactic Acid Level 1.90 mmol/L (0.4-2.0) Calcium Level 9.5 MG/DL (8.5-10.1) Total Bilirubin 0.3 MG/DL (0.2-1.0) Aspartate Amino Transferase (AST) 49 U/L (15-37) H Alanine Aminotransferase (ALT) 28 U/L (12-78) Alkaline Phosphatase 141 U/L (46-116) H Total Creatine Kinase 165 U/L (26-308) Creatine Kinase MB 1.5 NG/ML (0.0-3.6) Creatine Kinase MB Relative Index 0.9 Troponin I 0.004 ng/mL (0.000-0.056) Pro-B-Type Natriuretic Peptide 580 pg/mL (0-125) H Total Protein 8.8 G/DL (6.4-8.2) H Albumin 3.0 G/DL (3.4-5.0) L Globulin 5.8 g/dL Albumin/Globulin Ratio 0.5 (1.0-2.7) L EKG Diagnostic Results Rate: normal Rhythm: NSR ST Segments: no acute changes - r axis Rhythm Strip Diag. Results Rhythm: NSR, no PVC's, no ectopy Chest X-Ray Diagnostic Results Chest X-Ray Diagnostic Results #1: Chest X-Ray Ordered: Yes Indication: Other EP Interpretation: Yes Interpretation: no effusion, no pneumothorax, other - increased marquez Impression: Other Electronically Signed by: Electronically signed by John Hunter MD Chest X-Ray Diagnostic Results #2: Chest X-Ray Ordered: Yes # of Views/Limited/Complete: 1 View Indication: Other EP Interpretation: Yes Interpretation: no effusion, no pneumothorax, other - PICC line in place Impression: Other Electronically Signed by: Electronically signed by John Hunter MD Last Vital Signs Date Time Temp Pulse Resp B/P (MAP) Pulse Ox O2 Delivery O2 Flow Rate FiO2 10/28/18 17:20 97.8 93 22 113/78 100 Trach Collar 60.0 40 Status: improved Disposition: ADMITTED INPATIENT Condition: Serious John Hunter MD Oct 28, 2018 13:43
[2018-10-28 13:58] LABS: HEMATOCRIT 31.5 % (42.0-52.0); HEMOGLOBIN 10.4 G/DL (14.2-18.0); MEAN CORPUSCULAR VOLUME 84 FL (80-99); PLATELET COUNT 396 K/UL (150-450); RED BLOOD COUNT 3.76 M/UL (4.70-6.10); RED CELL DISTRIBUTION WIDTH 14.3 % (11.6-14.8)
[2018-10-28 14:01] LABS: WHITE BLOOD COUNT 23.9 K/UL (4.8-10.8)
[2018-10-28 14:20] VITALS: BP 135/101
[2018-10-28 14:21] LABS: ANION GAP 12 mmol/L (5-15); BLOOD UREA NITROGEN 33 mg/dL (7-18); CALCIUM 9.5 MG/DL (8.5-10.1); CARBON DIOXIDE 26 MMOL/L (21-32); CHLORIDE 93 MMOL/L (98-107); CREATININE 1.3 MG/DL (0.55-1.30); POTASSIUM 4.8 MMOL/L (3.5-5.1); SODIUM 131 MMOL/L (136-145)
[2018-10-28] MEDS ORDERED: Heparin1,000 units/500ml Premix(Conc:2 units/ml) IV STA (14:27)
[2018-10-28] MEDS ORDERED: Lidocaine 1% Plain 30 ml INJ STA (14:27)
[2018-10-28] MEDS ORDERED: Acetaminophen 650 MG SUPP RECTAL ONE (14:30)
[2018-10-28] MEDS ORDERED: Cefepime HCl 1 GM in D5W 55 ML IVPB ONE (14:30)
[2018-10-28 14:35] LABS: ALANINE AMINOTRANSFERASE 28 U/L (12-78); ALBUMIN/GLOBULIN RATIO 0.5 (1.0-2.7); ALKALINE PHOSPHATASE 141 U/L (46-116); ASPARTATE AMINO TRANSFERASE 49 U/L (15-37); BILIRUBIN,TOTAL 0.3 MG/DL (0.2-1.0); CKMB 1.5 NG/ML (0.0-3.6); CREATINE KINASE 165 U/L (26-308)
--- NOTE | 2018-10-28 14:44 | Diagnostic Imaging Report ---
Indication: Dyspnea Comparison: 10/08/2018 A single view chest radiograph was obtained. Findings: Tracheostomy noted. No definite infiltrate identified. Heart size is normal. Lung volumes are low. Prominence of the interstitium noted in the perihilar and basilar aspects of the lungs. This is probably chronic and appears similarly on prior studies. IMPRESSION: No acute disease
--- NOTE | 2018-10-28 15:00 | NUR ---
ED Nurse Note: straight cath done per ERMD order to obtain urine, pt tolerated well. urine specimen obtained and sent.
[2018-10-28 15:20] VITALS: BP 125/99
[2018-10-28 16:20] VITALS: BP 121/76
[2018-10-28 16:57] LABS: APPEARANCE,URINE CLEAR; BILIRUBIN, URINE NEGATIVE (NEGATIVE); GLUCOSE, URINE (UA) NEGATIVE (NEGATIVE); KETONES,URINE NEGATIVE (NEGATIVE); LEUKOCYTE ESTERASE ,URINE 3+ (NEGATIVE); NITRITE,URINE NEGATIVE (NEGATIVE); PH,URINE 7 (4.5-8.0); PROTEIN,URINE 2+ (NEGATIVE); UROBILINOGEN,URINE NORMAL MG/DL (0.0-1.0)
[2018-10-28 16:58] LABS: COLOR,URINE YELLOW
--- NOTE | 2018-10-28 17:11 | Diagnostic Imaging Report ---
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 The right upper extremity was prepped with alcohol. All elements of maximal sterile barrier technique were followed including usage of a cap, mask, sterile gown, sterile gloves, hand hygiene and a large sterile sheet. Sonographic evaluation of the upper extremity was performed demonstrating a patent and compressible brachial vein. Access was obtained under real-time ultrasound guidance (with utilization of sterile gel and sterile probe cover) and digital image was saved and archived. An .018 wire was introduced. Needle exchanged for a 5 Serbian peel-away sheath. Measurements were obtained. A 5 Serbian dual-lumen Power PICC line catheter was cut to 37 cm and introduced over the wire. Peel-away sheath and wire were removed.Catheter was secured to the skin using 2-0 Prolene suture. Both ports aspirate and flush easily. Post procedure chest x-ray demonstrates good position of the PICC line catheter within the SVC. Impression: Successful placement of an upper extremity PICC line catheter
[2018-10-28 17:20] VITALS: BP 113/78
--- NOTE | 2018-10-28 17:30 | NUR ---
ED Nurse Note: attempted giving report, unable to take report, rm cleaning.
--- NOTE | 2018-10-28 18:13 | NUR ---
ED Nurse Note: attempted giving report, nurse currently transporting pt and unable to take report, will try again.
[2018-10-28] MEDS ORDERED: Miralax 17gm pkt ORAL PRN (18:30)
[2018-10-28] MEDS ORDERED: LORazepam Inj 2mg/ml 1ml IV PRN (18:30)
[2018-10-28] MEDS ORDERED: Morphine Sulfate 4mg/ml Inj (IV USE ONLY) IVP PRN (18:30)
[2018-10-28] MEDS ORDERED: Albuterol/Ipratropium 3ml neb HHN PRN (18:30)
--- NOTE | 2018-10-28 18:30 | NUR ---
ED Nurse Note: report given to RN Jeannie and pt transferred, RT/RN,TECh present during transport. endorsed care.
--- NOTE | 2018-10-28 18:45 | NUR ---
NURSE NOTES: Received pt ,a new admission fr ED, brought to SDU per stacy awake,alert noted no resp distress,with trach tube Portex # 8 ,to [facility] vent ac 14,TV 600,Rem762%,Peep 5,pt with clamped GT,incontinent of urine and stools,had a BM,pt cleaned and kept dry,condom cath inserted,skin warm and dry,SR up x2 ,HOB elevated, bed locked in lowest position.
[2018-10-28 19:00] VITALS: BP 142/61
--- NOTE | 2018-10-28 19:15 | NUR ---
NURSE NOTES: Received patient from Jeannie Og RN. Patient is awake, non verbal with eyes opened but no making eye contact. On trach Portex 8, vent with settings of AC:16, TV:600, FiO2:35% and PEEP:5 showing no signs and symptoms of pain and/or distress. Dr. Keating has input orders, will initiate plan of care.
--- NOTE | 2018-10-28 19:20 | NUR ---
HAND-OFF: Report given to Ruth Parikh RN..
[2018-10-28] MEDS ORDERED: Dyna-Hex 2% Top Sol 2oz TOPIC SCH (20:00)
[2018-10-28] MEDS ORDERED: Vancomycin 1.25gm Premix 275 ML IVPB SCH (21:00)
[2018-10-28] MEDS: Sucralfate 1gm tab GT SCH (21:05)
[2018-10-28] MEDS: Heparin 5000 units/ml inj SUBQ SCH (21:06)
[2018-10-29] VITALS: BP 128/88
[2018-10-29 04:00] VITALS: BP 121/79
[2018-10-29 05:36] LABS: HEMATOCRIT 29.6 % (42.0-52.0); HEMOGLOBIN 9.6 G/DL (14.2-18.0); MEAN CORPUSCULAR VOLUME 84 FL (80-99); PLATELET COUNT 388 K/UL (150-450); RED BLOOD COUNT 3.51 M/UL (4.70-6.10); RED CELL DISTRIBUTION WIDTH 14.2 % (11.6-14.8)
[2018-10-29 06:09] LABS: ANION GAP 10 mmol/L (5-15); BLOOD UREA NITROGEN 39 mg/dL (7-18); CALCIUM 9.1 MG/DL (8.5-10.1); CARBON DIOXIDE 28 MMOL/L (21-32); CHLORIDE 94 MMOL/L (98-107); CREATININE 1.4 MG/DL (0.55-1.30); PHOSPHORUS 3.6 MG/DL (2.5-4.9); POTASSIUM 3.6 MMOL/L (3.5-5.1); SODIUM 131 MMOL/L (136-145); WHITE BLOOD COUNT 24.2 K/UL (4.8-10.8)
--- NOTE | 2018-10-29 06:18 | NUR ---
NURSE NOTES: Left message for Dr. Viveros regarding patient's AM WBC results of 24.2 which has increased from 23.9 as of yesterday's admission. Left phone number for call back for any further instructions or new orders.
--- NOTE | 2018-10-29 07:25 | NUR ---
HAND-OFF: Report given to Jeannie Frye RN.
[2018-10-29 08:00] VITALS: BP 115/73
--- NOTE | 2018-10-29 08:10 | NUR ---
NURSE NOTES: received pt in the bed, vent dependent, vital signs stable, no SOB, no co pain, skin warm and dry to touch, tolerate GT feeding well, condom catheter, PICC line on RT upper arm, dressing dry and intact, WBC 24.2, bed in low position, HOB elevated.
[2018-10-29] MEDS: Sucralfate 1gm tab GT SCH ×4 (09:11→20:59)
[2018-10-29] MEDS: Pantoprazole Inj IV SCH (09:11)
[2018-10-29] MEDS: Heparin 5000 units/ml inj SUBQ SCH ×2 (09:15→21:07)
--- NOTE | 2018-10-29 11:37 | Pulmonolgy Critical Care Note ---
Critical Care - Asmt/Plan Problems: (1) Sepsis (2) Respiratory failure, [id number] (3) Hypothyroidism (4) MDR Acinetobacter baumannii infection (5) Alzheimer's dementia (6) Severe protein-calorie malnutrition (7) Feeding by G-tube Respiratory: monitor respiratory rate, adjust FIO2, CXR Cardiac: continue to monitor HR/BP Renal: F/U I&O, check electrolytes Infectious Disease: check cultures, continue antibiotics Gastrointestinal: continue feedings/current rate Endocrine: check HgA1C Hematologic: monitor H/H, transfuse if hgb<8.5 Neurologic: PRN Ativan, keep patient comfortable Affect: PRN ativan Time Spent (Minutes): 40 Notes Reviewed: cardio, 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 with: nurses, consultants, 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 - Objective Last 24 Hour Vital Signs Date Time Temp Pulse Resp B/P (MAP) Pulse Ox O2 Delivery O2 Flow Rate FiO2 10/29/18 10:50 107 29 35 10/29/18 08:41 102 28 35 10/29/18 08:00 Mechanical Ventilator 10/29/18 08:00 35 10/29/18 08:00 100 10/29/18 08:00 98.1 104 30 115/73 (87) 98 10/29/18 06:56 95 25 35 10/29/18 05:02 100 21 35 10/29/18 04:14 103 26 35 10/29/18 04:00 35 10/29/18 04:00 97.6 104 25 121/79 (93) 99 10/29/18 04:00 Mechanical Ventilator 10/29/18 03:20 92 10/29/18 01:19 96 22 35 10/29/18 00:00 Mechanical Ventilator 10/29/18 00:00 97.9 91 28 128/88 (101) 100 10/29/18 00:00 35 10/28/18 23:31 93 10/28/18 22:35 98 25 35 10/28/18 21:49 90 24 35 10/28/18 20:00 94 10/28/18 19:55 93 20 35 10/28/18 19:42 98.6 89 20 134/60 100 Trach Collar 10/28/18 19:00 35 10/28/18 19:00 Mechanical Ventilator 10/28/18 19:00 97.9 102 18 142/61 (88) 97 10/28/18 17:20 97.8 93 22 113/78 100 Trach Collar 60.0 40 10/28/18 17:20 87 22 40 10/28/18 16:20 97.8 99 19 121/76 100 Trach Collar 60.0 40 10/28/18 15:20 97.8 96 19 125/99 100 Trach Collar 60.0 40 10/28/18 14:56 102 20 40 10/28/18 14:20 98.3 92 19 135/101 100 Trach Collar 10/28/18 13:42 90 24 40 10/28/18 13:42 90 24 Trach Collar 60.0 40 10/28/18 13:40 40 10/28/18 13:39 90 18 Mechanical Ventilator 60.0 40 10/28/18 13:20 92 13 120/95 96 Mechanical Ventilator 40 10/28/18 13:12 87 20 118/82 96 Mechanical Ventilator Status: awake Condition: critical HEENT: atraumatic Lungs: chest wall tender, rales Heart: HR/BP stable Abdomen: soft, non-tender Extremities: no C/C/E, edema Decubiti: stage Micro: Microbiology Date/Time Source Procedure Growth Status 10/28/18 13:40 Urine,Clean Catch Urine Culture - Preliminary NO GROWTH Resulted Critical Care - Subjective ROS Limited/Unobtainable: Yes Condition: critical EKG Rhythm: Sinus Rhythm FI02: 35 Vent Support Breath Rate: 8 Vent Support Mode: IMV/SIMV Vent Tidal Volume: 600 Sputum Amount: Moderate PEEP: 5.0 PIP: 17 Tube Feeding Amount: 25 I&O: Intake and Output 10/28/18 10/29/18 19:00 07:00 Intake Total 565.00 ml Output Total 400 ml Balance 165.00 ml Intake IV Total 275.00 ml Tube Feeding 190 ml Other 100 ml Output Urine Total 400 ml # Voids 1 # Bowel Movements 4 CXR: PUMA Labs: Laboratory Tests Test 10/28/18 13:40 10/29/18 03:15 White Blood Count 23.9 K/UL (4.8-10.8) *H 24.2 K/UL (4.8-10.8) *H Red Blood Count 3.76 M/UL (4.70-6.10) L 3.51 M/UL (4.70-6.10) L Hemoglobin 10.4 G/DL (14.2-18.0) L 9.6 G/DL (14.2-18.0) L Hematocrit 31.5 % (42.0-52.0) L 29.6 % (42.0-52.0) L Mean Corpuscular Volume 84 FL (80-99) 84 FL (80-99) Mean Corpuscular Hemoglobin 27.8 PG (27.0-31.0) 27.4 PG (27.0-31.0) Mean Corpuscular Hemoglobin Concent 33.1 G/DL (32.0-36.0) 32.5 G/DL (32.0-36.0) Red Cell Distribution Width 14.3 % (11.6-14.8) 14.2 % (11.6-14.8) Platelet Count 396 K/UL (150-450) 388 K/UL (150-450) Mean Platelet Volume 7.2 FL (6.5-10.1) 6.8 FL (6.5-10.1) Neutrophils (%) (Auto) % (45.0-75.0) % (45.0-75.0) Lymphocytes (%) (Auto) % (20.0-45.0) % (20.0-45.0) Monocytes (%) (Auto) % (1.0-10.0) % (1.0-10.0) Eosinophils (%) (Auto) % (0.0-3.0) % (0.0-3.0) Basophils (%) (Auto) % (0.0-2.0) % (0.0-2.0) Differential Total Cells Counted 100 100 Neutrophils % (Manual) 87 % (45-75) H 85 % (45-75) H Lymphocytes % (Manual) 9 % (20-45) L 6 % (20-45) L Monocytes % (Manual) 4 % (1-10) 8 % (1-10) Eosinophils % (Manual) 0 % (0-3) 1 % (0-3) Basophils % (Manual) 0 % (0-2) 0 % (0-2) Band Neutrophils 0 % (0-8) 0 % (0-8) Platelet Estimate Adequate Adequate Platelet Morphology Normal Normal Red Blood Cell Morphology Normal Urine Color Yellow Urine Appearance Clear Urine pH 7 (4.5-8.0) Urine Specific [place] 1.010 (1.005-1.035) Urine Protein 2+ (NEGATIVE) H Urine Glucose (UA) Negative (NEGATIVE) Urine Ketones Negative (NEGATIVE) Urine Blood 2+ (NEGATIVE) H Urine Nitrite Negative (NEGATIVE) Urine Bilirubin Negative (NEGATIVE) Urine Urobilinogen Normal MG/DL (0.0-1.0) Urine Leukocyte Esterase 3+ (NEGATIVE) H Urine RBC 5-10 /HPF (0 - 0) H Urine WBC 10-15 /HPF (0 - 0) H Urine Squamous Epithelial Cells None /LPF (NONE/OCC) Urine Uric Acid Crystals Few /LPF (NONE) H Urine Bacteria Moderate /HPF (NONE) H Sodium Level 131 MMOL/L (136-145) L 131 MMOL/L (136-145) L Potassium Level 4.8 MMOL/L (3.5-5.1) 3.6 MMOL/L (3.5-5.1) Chloride Level 93 MMOL/L (98-107) L 94 MMOL/L (98-107) L Carbon Dioxide Level 26 MMOL/L (21-32) 28 MMOL/L (21-32) Anion Gap 12 mmol/L (5-15) 10 mmol/L (5-15) Blood Urea Nitrogen 33 mg/dL (7-18) H 39 mg/dL (7-18) H Creatinine 1.3 MG/DL (0.55-1.30) 1.4 MG/DL (0.55-1.30) H Estimat Glomerular Filtration Rate 54.6 mL/min (>60) 50.1 mL/min (>60) Glucose Level 125 MG/DL (74-106) H 137 MG/DL (74-106) H Lactic Acid Level 1.90 mmol/L (0.4-2.0) Calcium Level 9.5 MG/DL (8.5-10.1) 9.1 MG/DL (8.5-10.1) Total Bilirubin 0.3 MG/DL (0.2-1.0) Aspartate Amino Transf (AST/SGOT) 49 U/L (15-37) H Alanine Aminotransferase (ALT/SGPT) 28 U/L (12-78) Alkaline Phosphatase 141 U/L (46-116) H Total Creatine Kinase 165 U/L (26-308) Creatine Kinase MB 1.5 NG/ML (0.0-3.6) Creatine Kinase MB Relative Index 0.9 Troponin I 0.004 ng/mL (0.000-0.056) Pro-B-Type Natriuretic Peptide 580 pg/mL (0-125) H Total Protein 8.8 G/DL (6.4-8.2) H Albumin 3.0 G/DL (3.4-5.0) L 3.0 G/DL (3.4-5.0) L Globulin 5.8 g/dL Albumin/Globulin Ratio 0.5 (1.0-2.7) L Anisocytosis 1+ Phosphorus Level 3.6 MG/DL (2.5-4.9) Huma Keating MD Oct 29, 2018 11:37
[2018-10-29 12:00] VITALS: BP 110/76
--- NOTE | 2018-10-29 12:26 | Consultation ---
History of Present Illness General Date patient seen: Oct 29, 2018 Chief Complaint: Abnormal Labs Present Illness HPI 68 y/o M with hx of HTN, CVA/TIA w/ hemiplegia, functional quadriplegia, chronic encephalopathy, CAD, CHF, hypothyroidism, chronic resp failure trach/ vent dependent, dysphagia s/p G-tube, Dm2, ESBL UTI 07/2018, GIB s/p multiple EGDs in the past, hx of severe esophagitis, schizoaffective disease, group home resident, multiple admissions presents to ED on 10/28 for leukocytosis and hyperkalemia. Of note, patient admitted here from 10/02-10/09 for recurrent episode of coffee ground emesis and probable Providencia UTi Allergies: Coded Allergies: NO KNOWN DRUG ALLERGIES (Verified Allergy, Unknown, 09/11/16) Medication History Scheduled Docusate Sodium* (Docusate Sodium*), 100 MG GT DAILY, (Reported) Levothyroxine Sodium* (Levothyroxine Sodium*), 50 MCG GT DAILY, (Reported) Magnesium Hydroxide* (Milk Of Magnesia*), 30 ML GT HS, (Reported) Multivitamin Liquid* (Multi-Delyn*), 15 ML GT DAILY, (Reported) Omeprazole (Omeprazole), 20 MG ORAL DAILY, (Reported) Sucralfate* (Carafate*), 1 GM GT FOUR TIMES A DAY, (Reported) Scheduled PRN Acetaminophen (Acetaminophen), 640 MG GT Q4HR PRN for Prn Headache/Temp > 101, ( Reported) Bisacodyl (Dulcolax), 10 MG RC NEEDED PRN for IF MOM INEFFECTIVE, (Reported) Na Phos,M-B/Na Phos,Di-Ba* (Fleet Enema*), 133 ML RECTAL QOD PRN for IF DUCOLAX INEFFETIVE, (Reported) Miscellaneous Medications Unable to Obtain Medications (Unable To Obtain Meds), (Reported) Patient History Healthcare decision maker Resuscitation status Full Code Advanced Directive on File Patient History Narrative Pmhx: as above SHx: reviewed Fhx: non contributory Review of Systems ROS Narrative unable to obtain Physical Exam Physical Exam Narrative Status: awake Condition: critical HEENT: atraumatic Lungs: chest wall tender, rales Heart: HR/BP stable Abdomen: soft, non-tender Extremities: no C/C/E, edema Decubiti: stage Last 24 Hour Vital Signs Date Time Temp Pulse Resp B/P (MAP) Pulse Ox O2 Delivery O2 Flow Rate FiO2 10/29/18 10:50 107 29 35 10/29/18 08:41 102 28 35 10/29/18 08:00 Mechanical Ventilator 10/29/18 08:00 35 10/29/18 08:00 100 10/29/18 08:00 98.1 104 30 115/73 (87) 98 10/29/18 06:56 95 25 35 10/29/18 05:02 100 21 35 10/29/18 04:14 103 26 35 10/29/18 04:00 35 10/29/18 04:00 97.6 104 25 121/79 (93) 99 10/29/18 04:00 Mechanical Ventilator 10/29/18 03:20 92 10/29/18 01:19 96 22 35 10/29/18 00:00 Mechanical Ventilator 10/29/18 00:00 97.9 91 28 128/88 (101) 100 10/29/18 00:00 35 10/28/18 23:31 93 10/28/18 22:35 98 25 35 10/28/18 21:49 90 24 35 10/28/18 20:00 94 10/28/18 19:55 93 20 35 10/28/18 19:42 98.6 89 20 134/60 100 Trach Collar 10/28/18 19:00 35 10/28/18 19:00 Mechanical Ventilator 10/28/18 19:00 97.9 102 18 142/61 (88) 97 10/28/18 17:20 97.8 93 22 113/78 100 Trach Collar 60.0 40 10/28/18 17:20 87 22 40 10/28/18 16:20 97.8 99 19 121/76 100 Trach Collar 60.0 40 10/28/18 15:20 97.8 96 19 125/99 100 Trach Collar 60.0 40 10/28/18 14:56 102 20 40 10/28/18 14:20 98.3 92 19 135/101 100 Trach Collar 10/28/18 13:42 90 24 40 10/28/18 13:42 90 24 Trach Collar 60.0 40 10/28/18 13:40 40 10/28/18 13:39 90 18 Mechanical Ventilator 60.0 40 10/28/18 13:20 92 13 120/95 96 Mechanical Ventilator 40 10/28/18 13:12 87 20 118/82 96 Mechanical Ventilator Intake and Output 10/28/18 10/29/18 19:00 07:00 Intake Total 565.00 ml Output Total 400 ml Balance 165.00 ml Intake IV Total 275.00 ml Tube Feeding 190 ml Other 100 ml Output Urine Total 400 ml # Voids 1 # Bowel Movements 4 Laboratory Tests Test 10/28/18 13:40 10/29/18 03:15 White Blood Count 23.9 K/UL (4.8-10.8) *H 24.2 K/UL (4.8-10.8) *H Red Blood Count 3.76 M/UL (4.70-6.10) L 3.51 M/UL (4.70-6.10) L Hemoglobin 10.4 G/DL (14.2-18.0) L 9.6 G/DL (14.2-18.0) L Hematocrit 31.5 % (42.0-52.0) L 29.6 % (42.0-52.0) L Mean Corpuscular Volume 84 FL (80-99) 84 FL (80-99) Mean Corpuscular Hemoglobin 27.8 PG (27.0-31.0) 27.4 PG (27.0-31.0) Mean Corpuscular Hemoglobin Concent 33.1 G/DL (32.0-36.0) 32.5 G/DL (32.0-36.0) Red Cell Distribution Width 14.3 % (11.6-14.8) 14.2 % (11.6-14.8) Platelet Count 396 K/UL (150-450) 388 K/UL (150-450) Mean Platelet Volume 7.2 FL (6.5-10.1) 6.8 FL (6.5-10.1) Neutrophils (%) (Auto) % (45.0-75.0) % (45.0-75.0) Lymphocytes (%) (Auto) % (20.0-45.0) % (20.0-45.0) Monocytes (%) (Auto) % (1.0-10.0) % (1.0-10.0) Eosinophils (%) (Auto) % (0.0-3.0) % (0.0-3.0) Basophils (%) (Auto) % (0.0-2.0) % (0.0-2.0) Differential Total Cells Counted 100 100 Neutrophils % (Manual) 87 % (45-75) H 85 % (45-75) H Lymphocytes % (Manual) 9 % (20-45) L 6 % (20-45) L Monocytes % (Manual) 4 % (1-10) 8 % (1-10) Eosinophils % (Manual) 0 % (0-3) 1 % (0-3) Basophils % (Manual) 0 % (0-2) 0 % (0-2) Band Neutrophils 0 % (0-8) 0 % (0-8) Platelet Estimate Adequate Adequate Platelet Morphology Normal Normal Red Blood Cell Morphology Normal Urine Color Yellow Urine Appearance Clear Urine pH 7 (4.5-8.0) Urine Specific [place] 1.010 (1.005-1.035) Urine Protein 2+ (NEGATIVE) H Urine Glucose (UA) Negative (NEGATIVE) Urine Ketones Negative (NEGATIVE) Urine Blood 2+ (NEGATIVE) H Urine Nitrite Negative (NEGATIVE) Urine Bilirubin Negative (NEGATIVE) Urine Urobilinogen Normal MG/DL (0.0-1.0) Urine Leukocyte Esterase 3+ (NEGATIVE) H Urine RBC 5-10 /HPF (0 - 0) H Urine WBC 10-15 /HPF (0 - 0) H Urine Squamous Epithelial Cells None /LPF (NONE/OCC) Urine Uric Acid Crystals Few /LPF (NONE) H Urine Bacteria Moderate /HPF (NONE) H Sodium Level 131 MMOL/L (136-145) L 131 MMOL/L (136-145) L Potassium Level 4.8 MMOL/L (3.5-5.1) 3.6 MMOL/L (3.5-5.1) Chloride Level 93 MMOL/L (98-107) L 94 MMOL/L (98-107) L Carbon Dioxide Level 26 MMOL/L (21-32) 28 MMOL/L (21-32) Anion Gap 12 mmol/L (5-15) 10 mmol/L (5-15) Blood Urea Nitrogen 33 mg/dL (7-18) H 39 mg/dL (7-18) H Creatinine 1.3 MG/DL (0.55-1.30) 1.4 MG/DL (0.55-1.30) H Estimat Glomerular Filtration Rate 54.6 mL/min (>60) 50.1 mL/min (>60) Glucose Level 125 MG/DL (74-106) H 137 MG/DL (74-106) H Lactic Acid Level 1.90 mmol/L (0.4-2.0) Calcium Level 9.5 MG/DL (8.5-10.1) 9.1 MG/DL (8.5-10.1) Total Bilirubin 0.3 MG/DL (0.2-1.0) Aspartate Amino Transf (AST/SGOT) 49 U/L (15-37) H Alanine Aminotransferase (ALT/SGPT) 28 U/L (12-78) Alkaline Phosphatase 141 U/L (46-116) H Total Creatine Kinase 165 U/L (26-308) Creatine Kinase MB 1.5 NG/ML (0.0-3.6) Creatine Kinase MB Relative Index 0.9 Troponin I 0.004 ng/mL (0.000-0.056) Pro-B-Type Natriuretic Peptide 580 pg/mL (0-125) H Total Protein 8.8 G/DL (6.4-8.2) H Albumin 3.0 G/DL (3.4-5.0) L 3.0 G/DL (3.4-5.0) L Globulin 5.8 g/dL Albumin/Globulin Ratio 0.5 (1.0-2.7) L Anisocytosis 1+ Phosphorus Level 3.6 MG/DL (2.5-4.9) Microbiology Date/Time Source Procedure Growth Status 10/28/18 13:40 Urine,Clean Catch Urine Culture - Preliminary NO GROWTH Resulted Height (Feet): 5 Height (Inches): 3.00 Weight (Pounds): 125 Medications Current Medications Medications (Trade) Dose Ordered Sig/Wanda Route PRN Reason Start Time Stop Time Status Last Admin Dose Admin Acetaminophen (Tylenol) 650 mg Q4H PRN ORAL FEVER 10/28/18 18:30 3 18:29 Albuterol/ Ipratropium (Albuterol/ Ipratropium) 3 ml Q4H PRN HHN Shortness of Breath 10/28/18 18:30 11/02/18 18:29 Cefepime HCl 1 gm/ Dextrose 55 ml @ 110 mls/hr Q24H IVPB 10/29/18 14:00 11/05/18 13:59 Chlorhexidine Gluconate (Jasmin-Hex 2%) 1 applic DAILY@2000 TOPIC 10/29/18 20:00 11/28/18 19:59 Dextrose (Dextrose 50%) STAT PRN IV Hypoglycemia 10/28/18 18:30 11/27/18 18:29 Heparin Sodium (Porcine) (Heparin 5000 units/ml) 5,000 units EVERY 12 HOURS SUBQ 10/28/18 21:00 11/27/18 20:59 10/29/18 09:15 Levothyroxine Sodium (Synthroid) 50 mcg DAILY GT 10/29/18 09:00 11/28/18 08:59 10/29/18 09:11 Lorazepam (Ativan 2mg/ml 1ml) 2 mg Q2H PRN IV For Anxiety 10/28/18 18:30 11/04/18 18:29 Morphine Sulfate (Morphine Sulfate) 4 mg Q4H PRN IVP Severe Pain (Pain Scale 7-10) 10/28/18 18:30 11/04/18 18:29 Ondansetron HCl (Zofran) 4 mg Q6H PRN IVP Nausea & Vomiting 10/28/18 18:30 11/27/18 18:29 Pantoprazole (Protonix) 40 mg DAILY IV 10/29/18 09:00 11/28/18 08:59 10/29/18 09:11 Polyethylene Glycol (Miralax) 17 gm DAILYPRN PRN ORAL Constipation 10/28/18 18:30 11/27/18 18:29 Sucralfate (Carafate) 1 gm FOUR TIMES A DAY GT 10/28/18 21:00 11/27/18 20:59 10/29/18 09:11 Tigecycline 50 mg/ Sodium Chloride 110 ml @ 220 mls/hr EVERY 12 HOURS IVPB 10/29/18 21:00 11/05/18 20:59 Vancomycin HCl/ Dextrose 275 ml @ 183.3 mls/ hr Q24H IVPB 10/28/18 21:00 11/02/18 20:59 10/28/18 21:05 Assessment/Plan Assessment/Plan Abx: Tigecycline 10/29- Cefepime 10/28- iV Vancomycin 10/28- Levaquin x 1 10/28 Assessment: Sepsis- ?2ry to UTI- r/o bacteremia -CXR: No acute disease -Bcx p Probable UTI -u./a wbc 10-15, nit neg, leuk est +3 Leukocytosis- r/o Cdiff R foot lateral ulcer- not infected Recurrent UTI -Probable Amp C Providencia stuarti 07/2018 -ESBL E.coli 07/2018 Hx of ESBL Proteus and S, maltophilia PNPA 07/2018, sp Rx -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 diff Dysphagia s/p G-tube Anemia. CVA/TIA w/ hemiplegia functional quadriplegia chronic encephalopathy CAD CHF Dm2 GIB s/p multiple EGDs in the past hx of severe esophagitis schizoaffective disease group home resident multiple admissions hx of VRE colonization Plan: -Switch Cefepime #2 to MEropenem given prior hx of AMP-c/ESBL pending urine culture -D/c Vanco #2 and Tigecycline #1 -10/09 SP Ertapenem #5 - 10/04 SP Meropenem #2 -10/03/18 SP IV Vancomycin #2 and Cefepime #2 -08/09/18 SP Bactrim #7 -08/03 SP Vancomycin and Cefepime #3 -08/01/18 SP Ceftriaxone x1 -f/u cx -Monitor CBC/CMP, temperatures -wound care -aspiration precautions Lisy Lai M.D. Oct 29, 2018 12:26
--- NOTE | 2018-10-29 12:44 | NUR ---
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 CURRENT TF: Jevity 1.2 @30ml x22 hrs ENTERAL NUTRITION RECOMMENDATIONS: Jevity 1.2 @ 65ml/hr x 22 hrs to provide 1430ml, 1716kcal, 79g prot, 1154ml free water * Increase goal rate to 65ml/hr * Advance 10ml q 4-6 hrs as tolerated to goal rate * HOLD TF 1h before and 1 after synthroid administration. * Flush per MD/ HOB over 30 degrees . ADDITIONAL RECOMMENDATIONS: * Calibrated bedscale weight for accurate CBW, weekly wt monitoring * Monitor need for accucheck w/ SSI- h/o DM + hyperglycemia * Monitor lytes w/ TF, replete as needed * F/up w/ R foot WC eval .
[2018-10-29] MEDS ORDERED: Cefepime HCl 1 GM in D5W 55 ML IVPB SCH (14:00)
[2018-10-29] MEDS: Meropenem 1 GM in NS 55 ML IVPB SCH (14:26)
--- NOTE | 2018-10-29 15:12 | NUR ---
NURSE NOTES: no any distress at this time, tolerate GT feeding well, bed bath given, continue monitoring.
--- NOTE | 2018-10-29 15:31 | Cardiology Report ---
APPROVED REPORT EKG Measurement Heart [id number] Normal sinus rhythm Rightward axis Borderline ECG
--- NOTE | 2018-10-29 15:42 | NUR ---
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 98.3 HR 87 RR 20 B/P 118/82 AC 16 TV 699 FIO2 40% PEEP 5 WBC 23.9 NA 131 BUN 33 ALK PHOS 141 BNP 580 UA+ PROTEIN,BLOOD,LEUKOCYTE ESTERASE,RBC,WBC,URIC ACID CRYSTALS BACTERIA CXR= NO ACUTE PROCESS IS: CEFEPIME IV LEVAQUIN IV LIDOCAINE HEPARIN ADMITTED TO STEP DOWN STEP DOWN STATUS DCP RETURN TO [facility]
[2018-10-29 16:00] VITALS: BP 112/65
--- NOTE | 2018-10-29 16:34 | NUR ---
*-* INSURANCE *-* ALL CLINICALS AND REVIEWS HAVE BEEN FAXED: [id number] OCTAVIAM:DANA P:[phone] F:[phone]
--- NOTE | 2018-10-29 18:15 | History and Physical Report ---
DATE OF ADMISSION: 10/28/2018 TIME SEEN: 2 p.m. CONSULTANTS: 1. Huma Keating M.D. 2. Cesario Daniels M.D 3. Sav Salvador M.D. CHIEF COMPLAINT: Sepsis. BRIEF HISTORY: This is a 68-year-old male from [facility] presents to [facility] yesterday with history of increased lethargy, possible fever, was found to have sepsis and admitted to [facility] for further care. Currently, trach, vent, altered, lethargic and nonverbal. REVIEW OF SYSTEMS: Unavailable. PAST MEDICAL HISTORY: Malnutrition, respiratory failure, encephalopathy, Alzheimer's dementia. PAST SURGICAL HISTORY: Trach and G-tube. MEDICATIONS: Tigecycline, chlorhexidine, meropenem, cefepime, levothyroxine, pantoprazole, sucralfate, heparin. ALLERGIES: Denies. SOCIAL HISTORY: Unable to obtain secondary to the patient's condition. OBJECTIVE: GENERAL: Lethargic in bed, trach, vent, altered, nonverbal. VITAL SIGNS: Temperature is 98 degrees, pulse 105, respiratory rate 25, blood pressure 115/73. CARDIOVASCULAR: No murmurs. LUNGS: Poor exchange. ABDOMEN: Bowel sounds distant. EXTREMITIES: No cyanosis, clubbing, or edema. NEUROLOGIC: The patient flaccid in bed, not following directions. LABORATORY AND DIAGNOSTIC DATA: White count 24, hemoglobin and hematocrit 9.6/29, otherwise CBC is normal. BMP shows sodium 131, , BUN and creatinine 39 and 1.4, glucose 137. Urinalysis show 3+ leukocyte esterase. ASSESSMENT: 1. Urinary tract infection . 2. Sepsis. 3. Respiratory failure. 4. Malnutrition. 5. Encephalopathy. 6. Alzheimer's. 7. Renal insufficiency. PLAN: 1. Vent per Pulmonary. 2. Antibiotics per Infectious Disease. 3. Dietary followup. 4. CBC and BMP in the morning. 5. Resume home medications. Gato Viveros D.O. DR: Elier JOB#: [id number] CC:
--- NOTE | 2018-10-29 19:10 | NUR ---
NURSE NOTES: Received report from Quirino Frye RN. Patient is asleep in bed, obtunded. No s/s of acute distress noted. Sinus rhythm on surveillance system monitor. Saturating well on trach-vent settings: Portex 8, AC 16, Vt 600, FiO2 35%, PEEP 5. Receiving Jevity 1.2 @ 30 cc/hr via GT and tolerating well. Condom catheter in place and draining well to gravity. Right upper arm PICC line, intact and patent. Left hand 22g IV saline lock, intact and patent. Bed locked in lowest position with padded side rails up x3. Call light left within reach. Will continue to monitor.
--- NOTE | 2018-10-29 19:10 | NUR ---
HAND-OFF: Report given to ЕКАТЕРИНА HARTLEY, NO DISTRESS NOTED.
--- NOTE | 2018-10-29 19:53 | Consultation ---
Consult Note Consult Note asked to eval for elevated BUN and Cr Patient is sent in from [facility] with elevated white count and potassium. The patient is unable to give a history. He is ventilator dependent. Patient admitted September 2018 for upper GI bleed. Discharge diagnoses: Providencia UTI Recurrent upper GI bleed Chronic respiratory failure on trach and vent History of ESBL UTI The of ESBL and S. maltophilia pneumonia Constipation Hypothyroidism GERD Hypertension Dysphagia on G-tube Anemia CVA/TIA with hemiplegia Functional quadriplegia Encephalopathy Coronary artery disease Chronic CHF Type 2 diabetes mellitus Severe esophagitis Schizoaffective disease Severe protein calorie malnutrition NO KNOWN DRUG ALLERGIES (Verified Allergy, Unknown, 09/11/16) Past Medical History: No History, Except For Hx Cardiac Problems: Yes Hx Hypertension: Yes Hx Asthma: Yes Hx COPD: No - vent dependent Hx Diabetes: Yes - DM II Hx Gastrointestinal Problems: Yes Hx Neurological Problems: Yes Hx Cerebrovascular Accident: Yes Hx Transient Ischemic Attacks: Yes Hx Dementia: Yes Hx Alzheimer's Disease: Yes Hx Parkinson's Disease: Yes Hx Encephalitis: Yes Hx Seizures: Yes Hx Epilepsy: Yes Hx Paralysis: Yes - HEMIPLEGIA Hx Memory Loss: Yes Hx Concentration Difficulty: Yes Hx Speech Problem: Yes Hx Aphasia: Yes Hx Weakness: Yes Hx Fatigue: Yes examined data reviewed Assessment/Plan (1) Tracheostomy dependence Respiratory failure, [id number] (2) Sepsis , Leukocytosis (3) GI bleed (4) Acute renal failure, Cr 1.4 (5) HypoThyroidism (6) Alzheimer's (7) Severe protein-calorie malnutrition (8) Feeding by G-tube Antibiotics pulm support monitor renal parameters Avoid Nephrotoxics check H&H Sav Salvador MD Oct 29, 2018 19:53
[2018-10-29 20:00] VITALS: BP 140/80
[2018-10-29] MEDS: Dyna-Hex 2% Top Sol 2oz TOPIC SCH (20:59)
[2018-10-29] MEDS ORDERED: Tigecycline 50 MG in NS 110 ML IVPB SCH (21:00)
[2018-10-30] VITALS: BP 104/65
[2018-10-30] MEDS: Meropenem 1 GM in NS 55 ML IVPB SCH ×2 (03:05→15:07)
[2018-10-30 04:00] VITALS: BP 139/98
--- NOTE | 2018-10-30 05:30 | NUR ---
NURSE NOTES: Left hand 22g IV catheter removed. Site remains asymptomatic. Catheter intact.
[2018-10-30 06:09] LABS: BASOPHILS % (AUTO) 0.4 % (0.0-2.0); HEMATOCRIT 26.3 % (42.0-52.0); HEMOGLOBIN 8.6 G/DL (14.2-18.0); LYMPHOCYTES % (AUTO) 12.1 % (20.0-45.0); MEAN CORPUSCULAR VOLUME 83 FL (80-99); MONOCYTES % (AUTO) 8.2 % (1.0-10.0); NEUTROPHILS % (AUTO) 77.2 % (45.0-75.0); PLATELET COUNT 337 K/UL (150-450); RED BLOOD COUNT 3.16 M/UL (4.70-6.10); RED CELL DISTRIBUTION WIDTH 14.3 % (11.6-14.8); WHITE BLOOD COUNT 14.1 K/UL (4.8-10.8)
[2018-10-30 06:36] LABS: ALANINE AMINOTRANSFERASE 25 U/L (12-78); ALBUMIN 2.6 G/DL (3.4-5.0); ALBUMIN/GLOBULIN RATIO 0.5 (1.0-2.7); ALKALINE PHOSPHATASE 128 U/L (46-116); ANION GAP 6 mmol/L (5-15); ASPARTATE AMINO TRANSFERASE 15 U/L (15-37); BILIRUBIN,TOTAL 0.3 MG/DL (0.2-1.0); BLOOD UREA NITROGEN 38 mg/dL (7-18); CALCIUM 9.4 MG/DL (8.5-10.1); CARBON DIOXIDE 30 MMOL/L (21-32); CHLORIDE 101 MMOL/L (98-107); CHOLESTEROL 110 MG/DL (< 200); CREATININE 1.4 MG/DL (0.55-1.30); HDL CHOLESTEROL 31 MG/DL (40-60); PHOSPHORUS 2.8 MG/DL (2.5-4.9); POTASSIUM 3.1 MMOL/L (3.5-5.1); SODIUM 137 MMOL/L (136-145); TRIGLYCERIDES 133 MG/DL (30-150)
--- NOTE | 2018-10-30 07:15 | NUR ---
HAND-OFF: Report given to Quirino Frye RN and Tamanna Martins RN.
--- NOTE | 2018-10-30 07:57 | NUR ---
NURSE NOTES: received pt in the bed, vent dependent, vital signs stable, no co pain, no SOB, skin warm and dry to touch, tolerate GT feeding well, condom catheter with yellow urine, K 3.1, dr. Salvador aware, placed order, PICC line on RT upper arm, dressing dry and intact,bed in low position, HOB elevated.
[2018-10-30 08:00] VITALS: BP 119/67
[2018-10-30] MEDS: Pantoprazole Inj IV SCH (09:05)
[2018-10-30] MEDS: Sucralfate 1gm tab GT SCH ×4 (09:05→20:28)
[2018-10-30] MEDS: Heparin 5000 units/ml inj SUBQ SCH ×2 (09:06→20:32)
[2018-10-30 09:09] LABS: % IRON SATURATION 23 % (15-50); IRON 35 ug/dL (50-175); TOTAL IRON BINDING CAPACITY 150 ug/dL (250-450)
--- NOTE | 2018-10-30 11:15 | Pulmonolgy Critical Care Note ---
Critical Care - Asmt/Plan Problems: (1) Sepsis (2) Respiratory failure, [id number] (3) Hypothyroidism (4) MDR Acinetobacter baumannii infection (5) Alzheimer's dementia (6) Severe protein-calorie malnutrition (7) Feeding by G-tube Respiratory: adjust tidal volume, monitor respiratory rate Cardiac: continue pressors, continue to monitor HR/BP Renal: F/U I&O, keep IV fluid, check electrolytes Infectious Disease: check cultures, continue antibiotics, add antibiotics - on Merropenem Gastrointestinal: continue feedings/current rate, hold feedings Endocrine: monitor blood sugar, check HgA1C, continue sliding scale insulin Hematologic: monitor H/H, transfuse if hgb<8.5 Neurologic: PRN Ativan, keep patient comfortable Affect: PRN ativan Prophylaxis: Protonix, Heparin Notes Reviewed: group manager, 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 with: nurses, welfare case workerintermediate project manager - Objective Last 24 Hour Vital Signs Date Time Temp Pulse Resp B/P (MAP) Pulse Ox O2 Delivery O2 Flow Rate FiO2 10/30/18 09:10 86 12 35 10/30/18 08:00 98.0 88 16 119/67 (84) 99 10/30/18 08:00 Mechanical Ventilator 10/30/18 08:00 90 10/30/18 08:00 35 10/30/18 06:51 91 18 35 10/30/18 04:45 92 17 35 10/30/18 04:00 88 18 Mechanical Ventilator 30 10/30/18 04:00 Mechanical Ventilator 10/30/18 04:00 97.8 87 18 139/98 (112) 100 10/30/18 04:00 35 10/30/18 03:32 96 10/30/18 03:30 88 18 35 10/30/18 01:25 91 17 35 10/30/18 00:00 98.1 86 18 104/65 (78) 100 10/30/18 00:00 Mechanical Ventilator 10/29/18 23:30 84 19 35 10/29/18 23:30 83 10/29/18 21:30 81 21 35 10/29/18 20:00 Mechanical Ventilator 10/29/18 20:00 97.9 95 18 140/80 (100) 100 10/29/18 20:00 35 10/29/18 19:36 82 10/29/18 19:30 82 23 35 10/29/18 17:34 85 20 35 10/29/18 16:00 98.4 95 18 112/65 (81) 100 10/29/18 16:00 92 10/29/18 16:00 35 10/29/18 16:00 Mechanical Ventilator 10/29/18 15:00 100 25 35 10/29/18 13:38 98 24 Trach Collar 60.0 35 10/29/18 12:53 105 25 35 10/29/18 12:00 98.2 101 26 110/76 (87) 98 10/29/18 12:00 35 10/29/18 12:00 100 10/29/18 12:00 Mechanical Ventilator Status: sedated Condition: critical HEENT: atraumatic Neck: full ROM Lungs: clear Heart: HR/BP stable, HR/BP unstable Abdomen: non-tender, feeding tube Extremities: edema Decubiti: stage Micro: Microbiology Date/Time Source Procedure Growth Status 10/29/18 03:15 Blood Blood Culture - Preliminary NO GROWTH AFTER 24 HOURS Resulted 10/28/18 13:40 Blood Blood Culture - Preliminary NO GROWTH AFTER 24 HOURS Resulted 10/29/18 01:25 Sputum Gram Stain - Final Resulted 10/29/18 01:25 Sputum Culture - Preliminary Gram Negative Bacillus 1 Resulted 10/28/18 13:40 Nasal Nares MRSA Culture - Final NO METHICILLIN RESISTANT STAPH AUREUS... Complete 10/28/18 13:40 Urine,Clean Catch Urine Culture - Preliminary NO GROWTH AFTER 24 HOURS Resulted 10/28/18 13:40 Rectum VRE Culture - Final Enterococcus Faecalis - Vre Resulted 10/28/18 13:40 Rectum Pending Resulted Critical Care - Subjective ROS Limited/Unobtainable: Yes Condition: critical FI02: 35 Vent Support Breath Rate: 8 Vent Support Mode: IMV/SIMV Vent Tidal Volume: 600 Sputum Amount: Moderate PEEP: 5.0 PIP: 24 Tube Feeding Amount: 30 I&O: Intake and Output 10/29/18 10/30/18 19:00 07:00 Intake Total 495 ml 505 ml Output Total 500 ml 200 ml Balance -5 ml 305 ml Intake Free Water 150 ml 120 ml IV Total 55 ml 55 ml Tube Feeding 290 ml 330 ml Output Urine Total 500 ml 200 ml # Bowel Movements 6 CXR: PUMA Labs: Laboratory Tests Test 10/30/18 05:00 10/30/18 05:30 10/30/18 07:45 White Blood Count 14.1 K/UL (4.8-10.8) H Red Blood Count 3.16 M/UL (4.70-6.10) L Hemoglobin 8.6 G/DL (14.2-18.0) L Hematocrit 26.3 % (42.0-52.0) L Mean Corpuscular Volume 83 FL (80-99) Mean Corpuscular Hemoglobin 27.1 PG (27.0-31.0) Mean Corpuscular Hemoglobin Concent 32.6 G/DL (32.0-36.0) Red Cell Distribution Width 14.3 % (11.6-14.8) Platelet Count 337 K/UL (150-450) Mean Platelet Volume 6.9 FL (6.5-10.1) Neutrophils (%) (Auto) 77.2 % (45.0-75.0) H Lymphocytes (%) (Auto) 12.1 % (20.0-45.0) L Monocytes (%) (Auto) 8.2 % (1.0-10.0) Eosinophils (%) (Auto) 2.0 % (0.0-3.0) Basophils (%) (Auto) 0.4 % (0.0-2.0) Erythrocyte Sedimentation Rate 102 MM/HR (0-20) H Sodium Level 137 MMOL/L (136-145) Potassium Level 3.1 MMOL/L (3.5-5.1) L Chloride Level 101 MMOL/L (98-107) Carbon Dioxide Level 30 MMOL/L (21-32) Anion Gap 6 mmol/L (5-15) Blood Urea Nitrogen 38 mg/dL (7-18) H Creatinine 1.4 MG/DL (0.55-1.30) H Estimat Glomerular Filtration Rate 50.1 mL/min (>60) Glucose Level 107 MG/DL (74-106) H Uric Acid 5.3 MG/DL (2.6-7.2) Calcium Level 9.4 MG/DL (8.5-10.1) Phosphorus Level 2.8 MG/DL (2.5-4.9) Magnesium Level 2.3 MG/DL (1.8-2.4) Ferritin 418 NG/ML (8-388) H Total Bilirubin 0.3 MG/DL (0.2-1.0) Aspartate Amino Transf (AST/SGOT) 15 U/L (15-37) Alanine Aminotransferase (ALT/SGPT) 25 U/L (12-78) Alkaline Phosphatase 128 U/L (46-116) H C-Reactive Protein, Quantitative 19.9 mg/dL (0.00-0.90) H Pro-B-Type Natriuretic Peptide 371 pg/mL (0-125) H Total Protein 7.5 G/DL (6.4-8.2) Albumin 2.6 G/DL (3.4-5.0) L Globulin 4.9 g/dL Albumin/Globulin Ratio 0.5 (1.0-2.7) L Triglycerides Level 133 MG/DL (30-150) Cholesterol Level 110 MG/DL (< 200) LDL Cholesterol 56 mg/dL (<100) HDL Cholesterol 31 MG/DL (40-60) L Cholesterol/HDL Ratio 3.5 (3.3-4.4) Thyroid Stimulating Hormone (TSH) 4.860 uiU/mL (0.358-3.740) Urine Random Sodium 35 mmol/L (20-110) Iron Level 35 ug/dL (50-175) L Total Iron Binding Capacity 150 ug/dL (250-450) L Percent Iron Saturation 23 % (15-50) Unsaturated Iron Binding 115 ug/dL (112-346) Vitamin B12 Level 1912 PG/ML (193-986) H Folate 22.6 NG/ML (8.6-58.9) Huma Keating MD Oct 30, 2018 11:15
[2018-10-30 12:00] VITALS: BP 118/84
--- NOTE | 2018-10-30 12:59 | Nephrology Progress Note ---
Assessment/Plan Problem List: (1) Acute renal failure (2) Sepsis (3) Severe protein-calorie malnutrition (4) Hypothyroidism Assessment (1) Tracheostomy dependence Respiratory failure, [id number] (2) Sepsis , Leukocytosis (3) GI bleed (4) Acute renal failure, Cr 1.4 (5) HypoThyroidism (6) Alzheimer's (7) Severe protein-calorie malnutrition (8) Feeding by G-tube Plan Antibiotics K supplement pulm support monitor renal parameters Avoid Nephrotoxics check H&H Subjective ROS Limited/Unobtainable: Yes Objective Objective Last 24 Hour Vital Signs Date Time Temp Pulse Resp B/P (MAP) Pulse Ox O2 Delivery O2 Flow Rate FiO2 10/30/18 12:00 35 10/30/18 12:00 99.0 87 14 118/84 (95) 99 10/30/18 12:00 Mechanical Ventilator 10/30/18 11:12 92 16 35 10/30/18 09:10 86 12 35 10/30/18 08:00 98.0 88 16 119/67 (84) 99 10/30/18 08:00 Mechanical Ventilator 10/30/18 08:00 90 10/30/18 08:00 35 10/30/18 06:51 91 18 35 10/30/18 04:45 92 17 35 10/30/18 04:00 88 18 Mechanical Ventilator 30 10/30/18 04:00 Mechanical Ventilator 10/30/18 04:00 97.8 87 18 139/98 (112) 100 10/30/18 04:00 35 10/30/18 03:32 96 10/30/18 03:30 88 18 35 10/30/18 01:25 91 17 35 10/30/18 00:00 98.1 86 18 104/65 (78) 100 10/30/18 00:00 Mechanical Ventilator 10/29/18 23:30 84 19 35 10/29/18 23:30 83 10/29/18 21:30 81 21 35 10/29/18 20:00 Mechanical Ventilator 10/29/18 20:00 97.9 95 18 140/80 (100) 100 10/29/18 20:00 35 10/29/18 19:36 82 10/29/18 19:30 82 23 35 10/29/18 17:34 85 20 35 10/29/18 16:00 98.4 95 18 112/65 (81) 100 10/29/18 16:00 92 10/29/18 16:00 35 10/29/18 16:00 Mechanical Ventilator 10/29/18 15:00 100 25 35 10/29/18 13:38 98 24 Trach Collar 60.0 35 Intake and Output 10/29/18 10/30/18 19:00 07:00 Intake Total 495 ml 535 ml Output Total 500 ml 200 ml Balance -5 ml 335 ml Intake Free Water 150 ml 120 ml IV Total 55 ml 55 ml Tube Feeding 290 ml 360 ml Output Urine Total 500 ml 200 ml # Bowel Movements 6 Laboratory Tests 10/30/18 05:00: White Blood Count 14.1H, Red Blood Count 3.16L, Hemoglobin 8.6L, Hematocrit 26.3L, Mean Corpuscular Volume 83, Mean Corpuscular Hemoglobin 27.1, Mean Corpuscular Hemoglobin Concent 32.6, Red Cell Distribution Width 14.3, Platelet Count 337, Mean Platelet Volume 6.9, Neutrophils (%) (Auto) 77.2H, Lymphocytes ( %) (Auto) 12.1L, Monocytes (%) (Auto) 8.2, Eosinophils (%) (Auto) 2.0, Basophils (%) (Auto) 0.4, Erythrocyte Sedimentation Rate 102H, Sodium Level 137 , Potassium Level 3.1L, Chloride Level 101, Carbon Dioxide Level 30, Anion Gap 6 , Blood Urea Nitrogen 38H, Creatinine 1.4H, Estimat Glomerular Filtration Rate 50.1, Glucose Level 107H, Uric Acid 5.3, Calcium Level 9.4, Phosphorus Level 2.8 , Magnesium Level 2.3, Ferritin 418H, Total Bilirubin 0.3, Aspartate Amino Transf (AST/SGOT) 15, Alanine Aminotransferase (ALT/SGPT) 25, Alkaline Phosphatase 128H, C-Reactive Protein, Quantitative 19.9H, Pro-B-Type Natriuretic Peptide 371H, Total Protein 7.5, Albumin 2.6L, Globulin 4.9, Albumin /Globulin Ratio 0.5L, Triglycerides Level 133, Cholesterol Level 110, LDL Cholesterol 56, HDL Cholesterol 31L, Cholesterol/HDL Ratio 3.5, Thyroid Stimulating Hormone (TSH) 4.860H 10/30/18 05:30: Urine Random Sodium 35 10/30/18 07:45: Iron Level 35L, Total Iron Binding Capacity 150L, Percent Iron Saturation 23, Unsaturated Iron Binding 115, Vitamin B12 Level 1912H, Folate 22.6 Height (Feet): 5 Height (Inches): 3.00 Weight (Pounds): 128 General Appearance: no apparent distress Neck: limited range of motion Cardiovascular: tachycardia Respiratory/Chest: decreased breath sounds Abdomen: distended Sav Salvador MD Oct 30, 2018 12:59
--- NOTE | 2018-10-30 14:00 | NUR ---
NURSE NOTES: vital signs stable, 40 meq of KCL IV given as ordered, no distress, continue monitoring.
--- NOTE | 2018-10-30 14:51 | General Progress Note ---
Assessment/Plan Problem List: (1) Acute renal failure ICD Codes: N17.9 - Acute kidney failure, unspecified SNOMED: 94108422 (2) Sepsis ICD Codes: A41.9 - Sepsis, unspecified organism SNOMED: 13924000 Qualifiers: Qualified Codes: A41.9 - Sepsis, unspecified organism (3) Severe protein-calorie malnutrition ICD Codes: E43 - Unspecified severe protein-calorie malnutrition SNOMED: 265841672 (4) Feeding by G-tube ICD Codes: Z93.1 - Gastrostomy status SNOMED: 492267663, 393087871 (5) Respiratory failure, enwib-bd-qwognej ICD Codes: J96.20 - Respiratory failure, [id number] SNOMED: 87740222 (6) UTI (urinary tract infection) ICD Codes: N39.0 - Urinary tract infection, site not specified SNOMED: 46922415 Qualifiers: Qualified Codes: N39.0 - Urinary tract infection, site not specified (7) Alzheimer's dementia ICD Codes: G30.9 - Alzheimer's disease, unspecified SNOMED: 99590331 (8) Anemia ICD Codes: D64.9 - Anemia, unspecified SNOMED: 670952451 Status: unchanged Assessment/Plan vent abx cbc bmp am Subjective Allergies: Coded Allergies: NO KNOWN DRUG ALLERGIES (Verified Allergy, Unknown, 09/11/16) All Systems: reviewed and negative except above Subjective trach vent altered Objective Last 24 Hour Vital Signs Date Time Temp Pulse Resp B/P (MAP) Pulse Ox O2 Delivery O2 Flow Rate FiO2 10/30/18 13:43 95 20 Mechanical Ventilator 35 10/30/18 13:25 95 20 35 10/30/18 12:00 35 10/30/18 12:00 88 10/30/18 12:00 99.0 87 14 118/84 (95) 99 10/30/18 12:00 Mechanical Ventilator 10/30/18 11:12 92 16 35 10/30/18 09:10 86 12 35 10/30/18 08:00 98.0 88 16 119/67 (84) 99 10/30/18 08:00 Mechanical Ventilator 10/30/18 08:00 90 10/30/18 08:00 35 10/30/18 06:51 91 18 35 10/30/18 04:45 92 17 35 10/30/18 04:00 88 18 Mechanical Ventilator 30 10/30/18 04:00 Mechanical Ventilator 10/30/18 04:00 97.8 87 18 139/98 (112) 100 10/30/18 04:00 35 10/30/18 03:32 96 10/30/18 03:30 88 18 35 10/30/18 01:25 91 17 35 10/30/18 00:00 98.1 86 18 104/65 (78) 100 10/30/18 00:00 Mechanical Ventilator 10/29/18 23:30 84 19 35 10/29/18 23:30 83 10/29/18 21:30 81 21 35 10/29/18 20:00 Mechanical Ventilator 10/29/18 20:00 97.9 95 18 140/80 (100) 100 10/29/18 20:00 35 10/29/18 19:36 82 10/29/18 19:30 82 23 35 10/29/18 17:34 85 20 35 10/29/18 16:00 98.4 95 18 112/65 (81) 100 10/29/18 16:00 92 10/29/18 16:00 35 10/29/18 16:00 Mechanical Ventilator 10/29/18 15:00 100 25 35 Intake and Output 10/29/18 10/30/18 19:00 07:00 Intake Total 495 ml 535 ml Output Total 500 ml 200 ml Balance -5 ml 335 ml Intake Free Water 150 ml 120 ml IV Total 55 ml 55 ml Tube Feeding 290 ml 360 ml Output Urine Total 500 ml 200 ml # Bowel Movements 6 Laboratory Tests 10/30/18 05:00: White Blood Count 14.1H, Red Blood Count 3.16L, Hemoglobin 8.6L, Hematocrit 26.3L, Mean Corpuscular Volume 83, Mean Corpuscular Hemoglobin 27.1, Mean Corpuscular Hemoglobin Concent 32.6, Red Cell Distribution Width 14.3, Platelet Count 337, Mean Platelet Volume 6.9, Neutrophils (%) (Auto) 77.2H, Lymphocytes ( %) (Auto) 12.1L, Monocytes (%) (Auto) 8.2, Eosinophils (%) (Auto) 2.0, Basophils (%) (Auto) 0.4, Erythrocyte Sedimentation Rate 102H, Sodium Level 137 , Potassium Level 3.1L, Chloride Level 101, Carbon Dioxide Level 30, Anion Gap 6 , Blood Urea Nitrogen 38H, Creatinine 1.4H, Estimat Glomerular Filtration Rate 50.1, Glucose Level 107H, Uric Acid 5.3, Calcium Level 9.4, Phosphorus Level 2.8 , Magnesium Level 2.3, Ferritin 418H, Total Bilirubin 0.3, Aspartate Amino Transf (AST/SGOT) 15, Alanine Aminotransferase (ALT/SGPT) 25, Alkaline Phosphatase 128H, C-Reactive Protein, Quantitative 19.9H, Pro-B-Type Natriuretic Peptide 371H, Total Protein 7.5, Albumin 2.6L, Globulin 4.9, Albumin /Globulin Ratio 0.5L, Triglycerides Level 133, Cholesterol Level 110, LDL Cholesterol 56, HDL Cholesterol 31L, Cholesterol/HDL Ratio 3.5, Thyroid Stimulating Hormone (TSH) 4.860H 10/30/18 05:30: Urine Random Sodium 35 10/30/18 07:45: Iron Level 35L, Total Iron Binding Capacity 150L, Percent Iron Saturation 23, Unsaturated Iron Binding 115, Vitamin B12 Level 1912H, Folate 22.6 Height (Feet): 5 Height (Inches): 3.00 Weight (Pounds): 128 General Appearance: lethargic EENT: normal ENT inspection Neck: normal alignment Cardiovascular: normal peripheral pulses, normal rate, regular rhythm Respiratory/Chest: chest wall non-tender, decreased breath sounds Abdomen: normal bowel sounds, non tender, soft Extremities: normal inspection Edema: no edema noted Arm (L), no edema noted Arm (R), no edema noted Leg (L), no edema noted Leg (R), no edema noted Pedal (L), no edema noted Pedal (R), no edema noted Generalized Neurologic: motor weakness Skin: normal pigmentation, warm/dry Gato Viveros DO Oct 30, 2018 14:51
[2018-10-30] MEDS ORDERED: Dextrose 50% 25ml Syringe IV PRN (15:00)
--- NOTE | 2018-10-30 15:51 | Infectious Diseases Prog Note ---
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 diff Dysphagia s/p G-tube Anemia. CVA/TIA w/ hemiplegia functional quadriplegia chronic encephalopathy CAD CHF Dm2 GIB s/p multiple EGDs in the past hx of severe esophagitis schizoaffective disease shelter resident multiple admissions VRE colonization Plan: -Continue MEropenem #2 given prior hx of AMP-c/ESBL pending urine culture -10/29 SP IV Vanco #2, Cefepime #2 and Tigecycline #1 -10/28 SP LEavquin x1 -10/09 SP Ertapenem #5 - 10/04 SP Meropenem #2 -10/03/18 SP IV Vancomycin #2 and Cefepime #2 -08/09/18 SP Bactrim #7 -08/03 SP Vancomycin and Cefepime #3 -08/01/18 SP Ceftriaxone x1 -f/u cx -Monitor CBC/CMP, temperatures -wound care -aspiration precautions -CXR am Subjective Allergies: Coded Allergies: NO KNOWN DRUG ALLERGIES (Verified Allergy, Unknown, 09/11/16) Subjective afebrile Wbc improving Objective Vital Signs Last 24 Hour Vital Signs Date Time Temp Pulse Resp B/P (MAP) Pulse Ox O2 Delivery O2 Flow Rate FiO2 10/30/18 15:18 80 19 35 10/30/18 13:43 95 20 Mechanical Ventilator 35 10/30/18 13:25 95 20 35 10/30/18 12:00 35 10/30/18 12:00 88 10/30/18 12:00 99.0 87 14 118/84 (95) 99 10/30/18 12:00 Mechanical Ventilator 10/30/18 11:12 92 16 35 10/30/18 09:10 86 12 35 10/30/18 08:00 98.0 88 16 119/67 (84) 99 10/30/18 08:00 Mechanical Ventilator 10/30/18 08:00 90 10/30/18 08:00 35 10/30/18 06:51 91 18 35 10/30/18 04:45 92 17 35 10/30/18 04:00 88 18 Mechanical Ventilator 30 10/30/18 04:00 Mechanical Ventilator 10/30/18 04:00 97.8 87 18 139/98 (112) 100 10/30/18 04:00 35 10/30/18 03:32 96 10/30/18 03:30 88 18 35 10/30/18 01:25 91 17 35 10/30/18 00:00 98.1 86 18 104/65 (78) 100 10/30/18 00:00 Mechanical Ventilator 10/29/18 23:30 84 19 35 10/29/18 23:30 83 10/29/18 21:30 81 21 35 10/29/18 20:00 Mechanical Ventilator 10/29/18 20:00 97.9 95 18 140/80 (100) 100 10/29/18 20:00 35 10/29/18 19:36 82 10/29/18 19:30 82 23 35 10/29/18 17:34 85 20 35 10/29/18 16:00 98.4 95 18 112/65 (81) 100 10/29/18 16:00 92 10/29/18 16:00 35 10/29/18 16:00 Mechanical Ventilator Height (Feet): 5 Height (Inches): 3.00 Weight (Pounds): 128 Objective Status: awake Condition: critical HEENT: atraumatic Lungs: chest wall tender, rales Heart: HR/BP stable Abdomen: soft, non-tender Extremities: no C/C/E, edema Decubiti: stage Microbiology Date/Time Source Procedure Growth Status 10/29/18 03:15 Blood Blood Culture - Preliminary NO GROWTH AFTER 24 HOURS Resulted 10/28/18 13:40 Blood Blood Culture - Preliminary NO GROWTH AFTER 24 HOURS Resulted 10/29/18 01:25 Sputum Gram Stain - Final Resulted 10/29/18 01:25 Sputum Culture - Preliminary Gram Negative Bacillus 1 Resulted 10/28/18 13:40 Nasal Nares MRSA Culture - Final NO METHICILLIN RESISTANT STAPH AUREUS... Complete 10/28/18 13:40 Urine,Clean Catch Urine Culture - Preliminary NO GROWTH AFTER 24 HOURS Resulted 10/28/18 13:40 Rectum VRE Culture - Final Enterococcus Faecalis - Vre Resulted 10/28/18 13:40 Rectum Pending Resulted Laboratory Tests Test 10/30/18 05:00 10/30/18 05:30 10/30/18 07:45 White Blood Count 14.1 K/UL (4.8-10.8) H Red Blood Count 3.16 M/UL (4.70-6.10) L Hemoglobin 8.6 G/DL (14.2-18.0) L Hematocrit 26.3 % (42.0-52.0) L Mean Corpuscular Volume 83 FL (80-99) Mean Corpuscular Hemoglobin 27.1 PG (27.0-31.0) Mean Corpuscular Hemoglobin Concent 32.6 G/DL (32.0-36.0) Red Cell Distribution Width 14.3 % (11.6-14.8) Platelet Count 337 K/UL (150-450) Mean Platelet Volume 6.9 FL (6.5-10.1) Neutrophils (%) (Auto) 77.2 % (45.0-75.0) H Lymphocytes (%) (Auto) 12.1 % (20.0-45.0) L Monocytes (%) (Auto) 8.2 % (1.0-10.0) Eosinophils (%) (Auto) 2.0 % (0.0-3.0) Basophils (%) (Auto) 0.4 % (0.0-2.0) Erythrocyte Sedimentation Rate 102 MM/HR (0-20) H Sodium Level 137 MMOL/L (136-145) Potassium Level 3.1 MMOL/L (3.5-5.1) L Chloride Level 101 MMOL/L (98-107) Carbon Dioxide Level 30 MMOL/L (21-32) Anion Gap 6 mmol/L (5-15) Blood Urea Nitrogen 38 mg/dL (7-18) H Creatinine 1.4 MG/DL (0.55-1.30) H Estimat Glomerular Filtration Rate 50.1 mL/min (>60) Glucose Level 107 MG/DL (74-106) H Uric Acid 5.3 MG/DL (2.6-7.2) Calcium Level 9.4 MG/DL (8.5-10.1) Phosphorus Level 2.8 MG/DL (2.5-4.9) Magnesium Level 2.3 MG/DL (1.8-2.4) Ferritin 418 NG/ML (8-388) H Total Bilirubin 0.3 MG/DL (0.2-1.0) Aspartate Amino Transf (AST/SGOT) 15 U/L (15-37) Alanine Aminotransferase (ALT/SGPT) 25 U/L (12-78) Alkaline Phosphatase 128 U/L (46-116) H C-Reactive Protein, Quantitative 19.9 mg/dL (0.00-0.90) H Pro-B-Type Natriuretic Peptide 371 pg/mL (0-125) H Total Protein 7.5 G/DL (6.4-8.2) Albumin 2.6 G/DL (3.4-5.0) L Globulin 4.9 g/dL Albumin/Globulin Ratio 0.5 (1.0-2.7) L Triglycerides Level 133 MG/DL (30-150) Cholesterol Level 110 MG/DL (< 200) LDL Cholesterol 56 mg/dL (<100) HDL Cholesterol 31 MG/DL (40-60) L Cholesterol/HDL Ratio 3.5 (3.3-4.4) Thyroid Stimulating Hormone (TSH) 4.860 uiU/mL (0.358-3.740) Urine Random Sodium 35 mmol/L (20-110) Iron Level 35 ug/dL (50-175) L Total Iron Binding Capacity 150 ug/dL (250-450) L Percent Iron Saturation 23 % (15-50) Unsaturated Iron Binding 115 ug/dL (112-346) Vitamin B12 Level 1912 PG/ML (193-986) H Folate 22.6 NG/ML (8.6-58.9) Current Medications Medications (Trade) Dose Ordered Sig/Wanda Route PRN Reason Start Time Stop Time Status Last Admin Dose Admin Acetaminophen (Tylenol) 650 mg Q4H PRN ORAL FEVER 10/28/18 18:30 11/27/18 18:29 Albuterol/ Ipratropium (Albuterol/ Ipratropium) 3 ml Q4H PRN HHN Shortness of Breath 10/28/18 18:30 11/02/18 18:29 Chlorhexidine Gluconate (Jasmin-Hex 2%) 1 applic DAILY@2000 TOPIC 10/29/18 20:00 11/28/18 19:59 10/29/18 20:59 Dextrose (Dextrose 50%) 25 ml Q30M PRN IV Hypoglycemia 10/30/18 15:00 11/29/18 14:53 Dextrose (Dextrose 50%) 50 ml Q30M PRN IV hypoglycemia 10/30/18 15:00 11/29/18 14:59 Heparin Sodium (Porcine) (Heparin 5000 units/ml) 5,000 units EVERY 12 HOURS SUBQ 10/28/18 21:00 11/27/18 20:59 10/30/18 09:06 Levothyroxine Sodium (Synthroid) 50 mcg DAILY GT 10/29/18 09:00 11/28/18 08:59 10/30/18 09:05 Lorazepam (Ativan 2mg/ml 1ml) 2 mg Q2H PRN IV For Anxiety 10/28/18 18:30 11/04/18 18:29 Meropenem 1 gm/ Sodium Chloride 55 ml @ 110 mls/hr Q12H IVPB 10/29/18 15:00 11/03/18 14:59 10/30/18 15:07 Morphine Sulfate (Morphine Sulfate) 4 mg Q4H PRN IVP Severe Pain (Pain Scale 7-10) 10/28/18 18:30 11/04/18 18:29 Ondansetron HCl (Zofran) 4 mg Q6H PRN IVP Nausea & Vomiting 10/28/18 18:30 11/27/18 18:29 Pantoprazole (Protonix) 40 mg DAILY IV 10/29/18 09:00 11/28/18 08:59 10/30/18 09:05 Polyethylene Glycol (Miralax) 17 gm DAILYPRN PRN ORAL Constipation 10/28/18 18:30 11/27/18 18:29 Sucralfate (Carafate) 1 gm FOUR TIMES A DAY GT 10/28/18 21:00 11/27/18 20:59 10/30/18 12:59 Lisy Lai M.D. Oct 30, 2018 15:51
--- NOTE | 2018-10-30 15:58 | NUR ---
SOFTWARE CLIENT [employer] SI: RESP FAILURE TRACH/VENT DEPENDENT T. 99.0 HR 87 RR 20 B/P 119/84 WBC 14.1 H/H 8.6/26.3 ESR 102 K 3.1 BUN 38 CR 1.4 ALK PHOS 128 SIMV 8 TV 600 FIO2 35% PEEP 5 IS; MEROPENEM IV PROTONIX IV CARAFATE GT HEPARIN SUBC STEP DOWN STATUS
[2018-10-30 16:00] VITALS: BP 137/55
--- NOTE | 2018-10-30 19:20 | NUR ---
NURSE NOTES: received report from Uday Walker, pt. in bed obtunded, opens eyes - non-verbal, no signs or symptoms of acute cardiac or respiratory distress noted, cardiac monitoring on, bed in lowest position and call light within easy reach, bed alarm on, side rails up x's 3 and safety brakes engaged, pt. appears to be tolerating current vent settings well - AC 16, TV 600, Fio2 35% and Peep 8- no distress noted, Jevity 1.2 running via G tube at 30cc/hr- no residual noted- pt. is at goal, pt. has condom cath intact and draining to gravity, pt. is clean and dry, PRASHANTH PICC - is intact and patent- TKO, comfort measures provided, safety measures continued, will continues with plan of care. Addendum: 10/31/18 at 1922 by ANDREA BELLE RN RN correction to vent settings above-pt. appears to be tolerating current vent settings well - Simv 8, TV 600, Fio2 35% and Peep 8 and pressure support 8- no respiratory distress noted. Pt. is not in AC mode.
--- NOTE | 2018-10-30 19:27 | NUR ---
HAND-OFF: Report given to YOSHI HARTLEY, no any distress at this time.
[2018-10-30 20:00] VITALS: BP 144/68
[2018-10-30] MEDS: Dyna-Hex 2% Top Sol 2oz TOPIC SCH (20:28)
[2018-10-31] VITALS: BP 134/74
--- NOTE | 2018-10-31 01:11 | NUR ---
RESPIRATORY NOTE: Received pt on SIMV 8, 600VT, PS 8, 35%, PEEP +5. Pt is trach-dependent w/ a cuffed, Portex 8 tube. Pt is asleep/disoriented. B/S nora. rhonchi, sxn moderate amounts of thick, pale-yellow secretions. Vent plugged into red outlet, ambubag & spare trach at bedside. Pt resting comfortably, in no apparent distress at this time. Will continue plan of care.
[2018-10-31] MEDS: Meropenem 1 GM in NS 55 ML IVPB SCH ×2 (02:08→14:30)
[2018-10-31 04:00] VITALS: BP 117/91
[2018-10-31 05:39] LABS: BASOPHILS % (AUTO) 0.5 % (0.0-2.0); EOSINOPHILS % (AUTO) 2.6 % (0.0-3.0); HEMATOCRIT 25.5 % (42.0-52.0); HEMOGLOBIN 8.1 G/DL (14.2-18.0); LYMPHOCYTES % (AUTO) 11.8 % (20.0-45.0); MEAN CORPUSCULAR VOLUME 85 FL (80-99); MONOCYTES % (AUTO) 8.9 % (1.0-10.0); NEUTROPHILS % (AUTO) 76.1 % (45.0-75.0); PLATELET COUNT 346 K/UL (150-450); RED BLOOD COUNT 3.01 M/UL (4.70-6.10); RED CELL DISTRIBUTION WIDTH 14.2 % (11.6-14.8); WHITE BLOOD COUNT 12.2 K/UL (4.8-10.8)
[2018-10-31 06:25] LABS: ALANINE AMINOTRANSFERASE 22 U/L (12-78); ALBUMIN 2.6 G/DL (3.4-5.0); ALBUMIN/GLOBULIN RATIO 0.6 (1.0-2.7); ALKALINE PHOSPHATASE 124 U/L (46-116); ANION GAP 7 mmol/L (5-15); ASPARTATE AMINO TRANSFERASE 15 U/L (15-37); BILIRUBIN,TOTAL 0.2 MG/DL (0.2-1.0); BLOOD UREA NITROGEN 30 mg/dL (7-18); CALCIUM 8.9 MG/DL (8.5-10.1); CARBON DIOXIDE 29 MMOL/L (21-32); CHLORIDE 103 MMOL/L (98-107); CREATININE 1.1 MG/DL (0.55-1.30); PHOSPHORUS 2.8 MG/DL (2.5-4.9); POTASSIUM 3.9 MMOL/L (3.5-5.1); SODIUM 139 MMOL/L (136-145)
--- NOTE | 2018-10-31 07:08 | NUR ---
HAND-OFF: Report given to Rachele HARTLEY, pt. remains stable and no signs of distress noted. Addendum: 10/31/18 at 0715 by ANDREA BELLE RN RN pt. remains on seizure precautions, side rails padded- no seizures noted for shift.
--- NOTE | 2018-10-31 07:25 | NUR ---
NURSE NOTES: Received report from Tamara Montalvo RN. Patient asleep in bed, responsive to tactile stimuli, nonverbal. Trach to vent with settings of SIMV 8, TV 600, FiO2 35%, PEEP 5, Pressure Support 8, saturating at 100%. GT feeding of Jevity 1.2 running @ 30 cc/hr, no residuals noted. HoB elevated. Condom catheter in place and draining well. Right upper arm PICC patent and asymptomatic. Bed locked in lowest position with padded side rails up x 3. All needs attended to. Will continue to monitor.
[2018-10-31 08:00] VITALS: BP 108/71
[2018-10-31] MEDS: Pantoprazole Inj IV SCH (08:37)
[2018-10-31] MEDS: Sucralfate 1gm tab GT SCH ×4 (08:38→20:23)
[2018-10-31] MEDS: Heparin 5000 units/ml inj SUBQ SCH ×2 (08:39→20:24)
[2018-10-31 12:00] VITALS: BP 132/69
--- NOTE | 2018-10-31 12:05 | Pulmonolgy Critical Care Note ---
Critical Care - Asmt/Plan Problems: (1) Sepsis (2) Respiratory failure, [id number] (3) Hypothyroidism (4) MDR Acinetobacter baumannii infection (5) Alzheimer's dementia (6) Severe protein-calorie malnutrition (7) Feeding by G-tube Respiratory: monitor respiratory rate, adjust FIO2, CXR Cardiac: continue to monitor HR/BP Renal: F/U I&O, keep IV fluid, check electrolytes Infectious Disease: check cultures, continue antibiotics Gastrointestinal: continue feedings/current rate Endocrine: monitor blood sugar, check HgA1C Hematologic: transfuse if hgb<8.5 Neurologic: PRN Ativan, PRN Morphine, keep patient comfortable Prophylaxis: Protonix, Heparin Disposition: keep in ICU Time Spent (Minutes): 40 Notes Reviewed: limb driver, cardio, 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 with: nurses, consultants, special education case managersystem 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 - Objective Last 24 Hour Vital Signs Date Time Temp Pulse Resp B/P (MAP) Pulse Ox O2 Delivery O2 Flow Rate FiO2 10/31/18 10:51 78 17 35 10/31/18 09:05 93 22 35 10/31/18 08:00 79 10/31/18 08:00 35 10/31/18 08:00 Mechanical Ventilator 10/31/18 08:00 98.0 75 17 108/71 (83) 96 10/31/18 06:43 88 21 35 10/31/18 05:03 85 16 35 10/31/18 04:00 77 10/31/18 04:00 35 10/31/18 04:00 Mechanical Ventilator 10/31/18 04:00 98.5 78 18 117/91 (100) 100 10/31/18 02:51 81 20 35 10/31/18 01:08 84 20 35 10/31/18 00:00 93 10/31/18 00:00 98.7 88 20 134/74 (94) 99 10/31/18 00:00 35 10/31/18 00:00 Mechanical Ventilator 10/30/18 23:05 88 16 35 10/30/18 21:01 83 13 35 10/30/18 20:00 98.2 82 20 144/68 (93) 97 10/30/18 20:00 82 10/30/18 20:00 Mechanical Ventilator 10/30/18 20:00 35 10/30/18 19:07 83 22 35 10/30/18 17:02 86 14 35 10/30/18 16:00 Mechanical Ventilator 10/30/18 16:00 98.2 85 16 137/55 (82) 100 10/30/18 16:00 82 10/30/18 16:00 35 10/30/18 15:18 80 19 35 10/30/18 13:43 95 20 Mechanical Ventilator 35 10/30/18 13:25 95 20 35 Status: awake Condition: critical HEENT: atraumatic Neck: full ROM Heart: regular Extremities: edema Micro: Microbiology Date/Time Source Procedure Growth Status 10/29/18 03:15 Blood Blood Culture - Preliminary NO GROWTH AFTER 24 HOURS Resulted 10/28/18 13:40 Blood Blood Culture - Preliminary NO GROWTH AFTER 48 HOURS Resulted 10/29/18 01:25 Sputum Gram Stain - Final Resulted 10/29/18 01:25 Sputum Culture - Preliminary Gram Negative Bacillus 1 Gram Negative Bacillus 2 Gram Negative Bacillus 3 Resulted 10/28/18 13:40 Nasal Nares MRSA Culture - Final NO METHICILLIN RESISTANT STAPH AUREUS... Complete 10/28/18 13:40 Urine,Clean Catch Urine Culture - Final NO GROWTH AFTER 48 HOURS Complete 10/28/18 13:40 Rectum VRE Culture - Final Enterococcus Faecalis - Vre Resulted 10/28/18 13:40 Rectum - Final NO CARBAPENEM-RESISTANT ENTEROBACTERI... Resulted Critical Care - Subjective FI02: 35 Vent Support Breath Rate: 8 Vent Support Mode: IMV/SIMV Vent Tidal Volume: 600 Sputum Amount: Moderate PEEP: 5.0 PIP: 13 Tube Feeding Amount: 30 I&O: Intake and Output 10/30/18 10/31/18 19:00 07:00 Intake Total 450 ml 515 ml Output Total 200 ml 200 ml Balance 250 ml 315 ml Intake Free Water 150 ml 100 ml IV Total 55 ml Tube Feeding 300 ml 360 ml Output Urine Total 200 ml 200 ml CXR: no change Labs: Laboratory Tests Test 10/31/18 04:00 White Blood Count 12.2 K/UL (4.8-10.8) H Red Blood Count 3.01 M/UL (4.70-6.10) L Hemoglobin 8.1 G/DL (14.2-18.0) L Hematocrit 25.5 % (42.0-52.0) L Mean Corpuscular Volume 85 FL (80-99) Mean Corpuscular Hemoglobin 27.0 PG (27.0-31.0) Mean Corpuscular Hemoglobin Concent 31.9 G/DL (32.0-36.0) L Red Cell Distribution Width 14.2 % (11.6-14.8) Platelet Count 346 K/UL (150-450) Mean Platelet Volume 6.7 FL (6.5-10.1) Neutrophils (%) (Auto) 76.1 % (45.0-75.0) H Lymphocytes (%) (Auto) 11.8 % (20.0-45.0) L Monocytes (%) (Auto) 8.9 % (1.0-10.0) Eosinophils (%) (Auto) 2.6 % (0.0-3.0) Basophils (%) (Auto) 0.5 % (0.0-2.0) Erythrocyte Sedimentation Rate 97 MM/HR (0-20) H Sodium Level 139 MMOL/L (136-145) Potassium Level 3.9 MMOL/L (3.5-5.1) Chloride Level 103 MMOL/L (98-107) Carbon Dioxide Level 29 MMOL/L (21-32) Anion Gap 7 mmol/L (5-15) Blood Urea Nitrogen 30 mg/dL (7-18) H Creatinine 1.1 MG/DL (0.55-1.30) Estimat Glomerular Filtration Rate > 60 mL/min (>60) Glucose Level 91 MG/DL (74-106) Calcium Level 8.9 MG/DL (8.5-10.1) Phosphorus Level 2.8 MG/DL (2.5-4.9) Magnesium Level 2.1 MG/DL (1.8-2.4) Total Bilirubin 0.2 MG/DL (0.2-1.0) Aspartate Amino Transf (AST/SGOT) 15 U/L (15-37) Alanine Aminotransferase (ALT/SGPT) 22 U/L (12-78) Alkaline Phosphatase 124 U/L (46-116) H C-Reactive Protein, Quantitative 9.9 mg/dL (0.00-0.90) H Total Protein 7.3 G/DL (6.4-8.2) Albumin 2.6 G/DL (3.4-5.0) L Globulin 4.7 g/dL Albumin/Globulin Ratio 0.6 (1.0-2.7) L Huma Keating MD Oct 31, 2018 12:05
--- NOTE | 2018-10-31 14:48 | Infectious Diseases Prog Note ---
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 diff Dysphagia s/p G-tube Anemia. CVA/TIA w/ hemiplegia functional quadriplegia chronic encephalopathy CAD CHF Dm2 GIB s/p multiple EGDs in the past hx of severe esophagitis schizoaffective disease long-term resident multiple admissions VRE colonization Plan: -Continue MEropenem #3 given prior hx of AMP-c/ESBL pending urine culture -10/29 SP IV Vanco #2, Cefepime #2 and Tigecycline #1 -10/28 SP LEavquin x1 -10/09 SP Ertapenem #5 - 10/04 SP Meropenem #2 -10/03/18 SP IV Vancomycin #2 and Cefepime #2 -08/09/ SP Bactrim #7 -08/03 SP Vancomycin and Cefepime #3 -08/01/18 SP Ceftriaxone x1 -f/u cx -Monitor CBC/CMP, temperatures -wound care -aspiration precautions -CXR am Subjective Allergies: Coded Allergies: NO KNOWN DRUG ALLERGIES (Verified Allergy, Unknown, 09/11/16) Subjective afebrile Wbc improving Objective Vital Signs Last 24 Hour Vital Signs Date Time Temp Pulse Resp B/P (MAP) Pulse Ox O2 Delivery O2 Flow Rate FiO2 10/31/18 12:54 80 15 35 10/31/18 12:00 97.9 80 13 132/69 (90) 100 10/31/18 12:00 35 10/31/18 12:00 Mechanical Ventilator 10/31/18 12:00 78 10/31/18 10:51 78 17 35 10/31/18 09:05 93 22 35 10/31/18 08:00 79 10/31/18 08:00 35 10/31/18 08:00 Mechanical Ventilator 10/31/18 08:00 98.0 75 17 108/71 (83) 96 10/31/18 06:43 88 21 35 10/31/18 05:03 85 16 35 10/31/18 04:00 77 10/31/18 04:00 35 10/31/18 04:00 Mechanical Ventilator 10/31/18 04:00 98.5 78 18 117/91 (100) 100 10/31/18 02:51 81 20 35 10/31/18 01:08 84 20 35 10/31/18 00:00 93 10/31/18 00:00 98.7 88 20 134/74 (94) 99 10/31/18 00:00 35 10/31/18 00:00 Mechanical Ventilator 10/30/18 23:05 88 16 35 10/30/18 21:01 83 13 35 10/30/18 20:00 98.2 82 20 144/68 (93) 97 10/30/18 20:00 82 10/30/18 20:00 Mechanical Ventilator 10/30/18 20:00 35 10/30/18 19:07 83 22 35 10/30/18 17:02 86 14 35 10/30/18 16:00 Mechanical Ventilator 10/30/18 16:00 98.2 85 16 137/55 (82) 100 10/30/18 16:00 82 10/30/18 16:00 35 10/30/18 15:18 80 19 35 Height (Feet): 5 Height (Inches): 3.00 Weight (Pounds): 128 Objective Status: awake Condition: critical HEENT: atraumatic Lungs: chest wall tender, rales Heart: HR/BP stable Abdomen: soft, non-tender Extremities: no C/C/E, edema Decubiti: stage Microbiology Date/Time Source Procedure Growth Status 10/29/18 03:15 Blood Blood Culture - Preliminary NO GROWTH AFTER 24 HOURS Resulted 10/29/18 01:25 Sputum Gram Stain - Final Resulted 10/29/18 01:25 Sputum Culture - Preliminary Gram Negative Bacillus 1 Gram Negative Bacillus 2 Gram Negative Bacillus 3 Resulted Laboratory Tests Test 10/31/18 04:00 White Blood Count 12.2 K/UL (4.8-10.8) H Red Blood Count 3.01 M/UL (4.70-6.10) L Hemoglobin 8.1 G/DL (14.2-18.0) L Hematocrit 25.5 % (42.0-52.0) L Mean Corpuscular Volume 85 FL (80-99) Mean Corpuscular Hemoglobin 27.0 PG (27.0-31.0) Mean Corpuscular Hemoglobin Concent 31.9 G/DL (32.0-36.0) L Red Cell Distribution Width 14.2 % (11.6-14.8) Platelet Count 346 K/UL (150-450) Mean Platelet Volume 6.7 FL (6.5-10.1) Neutrophils (%) (Auto) 76.1 % (45.0-75.0) H Lymphocytes (%) (Auto) 11.8 % (20.0-45.0) L Monocytes (%) (Auto) 8.9 % (1.0-10.0) Eosinophils (%) (Auto) 2.6 % (0.0-3.0) Basophils (%) (Auto) 0.5 % (0.0-2.0) Erythrocyte Sedimentation Rate 97 MM/HR (0-20) H Sodium Level 139 MMOL/L (136-145) Potassium Level 3.9 MMOL/L (3.5-5.1) Chloride Level 103 MMOL/L (98-107) Carbon Dioxide Level 29 MMOL/L (21-32) Anion Gap 7 mmol/L (5-15) Blood Urea Nitrogen 30 mg/dL (7-18) H Creatinine 1.1 MG/DL (0.55-1.30) Estimat Glomerular Filtration Rate > 60 mL/min (>60) Glucose Level 91 MG/DL (74-106) Calcium Level 8.9 MG/DL (8.5-10.1) Phosphorus Level 2.8 MG/DL (2.5-4.9) Magnesium Level 2.1 MG/DL (1.8-2.4) Total Bilirubin 0.2 MG/DL (0.2-1.0) Aspartate Amino Transf (AST/SGOT) 15 U/L (15-37) Alanine Aminotransferase (ALT/SGPT) 22 U/L (12-78) Alkaline Phosphatase 124 U/L (46-116) H C-Reactive Protein, Quantitative 9.9 mg/dL (0.00-0.90) H Total Protein 7.3 G/DL (6.4-8.2) Albumin 2.6 G/DL (3.4-5.0) L Globulin 4.7 g/dL Albumin/Globulin Ratio 0.6 (1.0-2.7) L Current Medications Medications (Trade) Dose Ordered Sig/Wanda Route PRN Reason Start Time Stop Time Status Last Admin Dose Admin Acetaminophen (Tylenol) 650 mg Q4H PRN ORAL FEVER 10/28/18 18:30 11/27/18 18:29 Albuterol/ Ipratropium (Albuterol/ Ipratropium) 3 ml Q4H PRN HHN Shortness of Breath 10/28/18 18:30 11/02/18 18:29 Chlorhexidine Gluconate (Jasmin-Hex 2%) 1 applic DAILY@2000 TOPIC 10/29/18 20:00 11/28/18 19:59 10/30/18 20:28 Dextrose (Dextrose 50%) 25 ml Q30M PRN IV Hypoglycemia 10/30/18 15:00 11/29/18 14:53 Dextrose (Dextrose 50%) 50 ml Q30M PRN IV hypoglycemia 10/30/18 15:00 11/29/18 14:59 Heparin Sodium (Porcine) (Heparin 5000 units/ml) 5,000 units EVERY 12 HOURS SUBQ 10/28/18 21:00 11/27/18 20:59 10/31/18 08:39 Levothyroxine Sodium (Synthroid) 50 mcg DAILY GT 10/29/18 09:00 11/28/18 08:59 10/31/18 08:38 Lorazepam (Ativan 2mg/ml 1ml) 2 mg Q2H PRN IV For Anxiety 10/28/18 18:30 11/04/18 18:29 Meropenem 1 gm/ Sodium Chloride 55 ml @ 110 mls/hr Q12H IVPB 10/29/18 15:00 11/03/18 14:59 10/31/18 14:30 Morphine Sulfate (Morphine Sulfate) 4 mg Q4H PRN IVP Severe Pain (Pain Scale 7-10) 10/28/18 18:30 11/04/18 18:29 Ondansetron HCl (Zofran) 4 mg Q6H PRN IVP Nausea & Vomiting 10/28/18 18:30 11/27/18 18:29 Pantoprazole (Protonix) 40 mg DAILY IV 10/29/18 09:00 11/28/18 08:59 10/31/18 08:37 Polyethylene Glycol (Miralax) 17 gm DAILYPRN PRN ORAL Constipation 10/28/18 18:30 11/27/18 18:29 Sucralfate (Carafate) 1 gm FOUR TIMES A DAY GT 10/28/18 21:00 11/27/18 20:59 10/31/18 12:33 Lisy Lai M.D. Oct 31, 2018 14:48
--- NOTE | 2018-10-31 15:29 | Nephrology Progress Note ---
Assessment/Plan Problem List: (1) Acute renal failure (2) Sepsis (3) Severe protein-calorie malnutrition (4) Hypothyroidism Assessment (1) Tracheostomy dependence Respiratory failure, rkgig-[id number] (2) Sepsis , Leukocytosis (3) GI bleed (4) Acute renal failure, Cr 1.4 (5) HypoThyroidism (6) Alzheimer's (7) Severe protein-calorie malnutrition (8) Feeding by G-tube Plan Antibiotics K supplement pulm support monitor renal parameters Avoid Nephrotoxics check H&H Subjective ROS Limited/Unobtainable: Yes Objective Objective Last 24 Hour Vital Signs Date Time Temp Pulse Resp B/P (MAP) Pulse Ox O2 Delivery O2 Flow Rate FiO2 10/31/18 12:54 80 15 35 10/31/18 12:00 97.9 80 13 132/69 (90) 100 10/31/18 12:00 35 10/31/18 12:00 Mechanical Ventilator 10/31/18 12:00 78 10/31/18 10:51 78 17 35 10/31/18 09:05 93 22 35 10/31/18 08:00 79 10/31/18 08:00 35 10/31/18 08:00 Mechanical Ventilator 10/31/18 08:00 98.0 75 17 108/71 (83) 96 10/31/18 06:43 88 21 35 10/31/18 05:03 85 16 35 10/31/18 04:00 77 10/31/18 04:00 35 10/31/18 04:00 Mechanical Ventilator 10/31/18 04:00 98.5 78 18 117/91 (100) 100 10/31/18 02:51 81 20 35 10/31/18 01:08 84 20 35 10/31/18 00:00 93 10/31/18 00:00 98.7 88 20 134/74 (94) 99 10/31/18 00:00 35 10/31/18 00:00 Mechanical Ventilator 10/30/18 23:05 88 16 35 10/30/18 21:01 83 13 35 10/30/18 20:00 98.2 82 20 144/68 (93) 97 10/30/18 20:00 82 10/30/18 20:00 Mechanical Ventilator 10/30/18 20:00 35 10/30/18 19:07 83 22 35 10/30/18 17:02 86 14 35 2/20/19 16:00 Mechanical Ventilator 10/30/18 16:00 98.2 85 16 137/55 (82) 100 10/30/18 16:00 82 10/30/18 16:00 35 Intake and Output 10/30/18 10/31/18 19:00 07:00 Intake Total 450 ml 515 ml Output Total 200 ml 200 ml Balance 250 ml 315 ml Intake Free Water 150 ml 100 ml IV Total 55 ml Tube Feeding 300 ml 360 ml Output Urine Total 200 ml 200 ml Laboratory Tests 10/31/18 04:00: White Blood Count 12.2H, Red Blood Count 3.01L, Hemoglobin 8.1L, Hematocrit 25.5L, Mean Corpuscular Volume 85, Mean Corpuscular Hemoglobin 27.0, Mean Corpuscular Hemoglobin Concent 31.9L, Red Cell Distribution Width 14.2, Platelet Count 346, Mean Platelet Volume 6.7, Neutrophils (%) (Auto) 76.1H, Lymphocytes (%) (Auto) 11.8L, Monocytes (%) (Auto) 8.9, Eosinophils (%) (Auto) 2.6, Basophils (%) (Auto) 0.5, Erythrocyte Sedimentation Rate 97H, Sodium Level 139, Potassium Level 3.9, Chloride Level 103, Carbon Dioxide Level 29, Anion Gap 7, Blood Urea Nitrogen 30H, Creatinine 1.1, Estimat Glomerular Filtration Rate > 60, Glucose Level 91, Calcium Level 8.9, Phosphorus Level 2.8, Magnesium Level 2.1, Total Bilirubin 0.2, Aspartate Amino Transf (AST/SGOT) 15, Alanine Aminotransferase (ALT/SGPT) 22, Alkaline Phosphatase 124H, C-Reactive Protein, Quantitative 9.9H, Total Protein 7.3, Albumin 2.6L, Globulin 4.7, Albumin/ Globulin Ratio 0.6L Height (Feet): 5 Height (Inches): 3.00 Weight (Pounds): 128 General Appearance: no apparent distress EENT: other - trach Cardiovascular: tachycardia Respiratory/Chest: decreased breath sounds Abdomen: soft Sav Slavador MD Oct 31, 2018 15:29
--- NOTE | 2018-10-31 15:38 | General Progress Note ---
Assessment/Plan Problem List: (1) Acute renal failure ICD Codes: N17.9 - Acute kidney failure, unspecified SNOMED: 61182923 (2) Sepsis ICD Codes: A41.9 - Sepsis, unspecified organism SNOMED: 29117137 Qualifiers: Qualified Codes: A41.9 - Sepsis, unspecified organism (3) Severe protein-calorie malnutrition ICD Codes: E43 - Unspecified severe protein-calorie malnutrition SNOMED: 105765810 (4) Feeding by G-tube ICD Codes: Z93.1 - Gastrostomy status SNOMED: 283104255, 074572416 (5) Respiratory failure, xygaz-ja-zcewfhe ICD Codes: J96.20 - Respiratory failure, ynryl-kg-vbtalqj SNOMED: 50571281 (6) UTI (urinary tract infection) ICD Codes: N39.0 - Urinary tract infection, site not specified SNOMED: 40390137 Qualifiers: Qualified Codes: N39.0 - Urinary tract infection, site not specified (7) Alzheimer's dementia ICD Codes: G30.9 - Alzheimer's disease, unspecified SNOMED: 57229326 (8) Anemia ICD Codes: D64.9 - Anemia, unspecified SNOMED: 117289679 Status: unchanged Assessment/Plan vent abx cbc bmp am Subjective Constitutional: Reports: weakness Allergies: Coded Allergies: NO KNOWN DRUG ALLERGIES (Verified Allergy, Unknown, 09/11/16) All Systems: reviewed and negative except above Subjective trach vent altered Objective Last 24 Hour Vital Signs Date Time Temp Pulse Resp B/P (MAP) Pulse Ox O2 Delivery O2 Flow Rate FiO2 10/31/18 12:54 80 15 35 10/31/18 12:00 97.9 80 13 132/69 (90) 100 10/31/18 12:00 35 10/31/18 12:00 Mechanical Ventilator 10/31/18 12:00 78 10/31/18 10:51 78 17 35 10/31/18 09:05 93 22 35 10/31/18 08:00 79 10/31/18 08:00 35 10/31/18 08:00 Mechanical Ventilator 10/31/18 08:00 98.0 75 17 108/71 (83) 96 10/31/18 06:43 88 21 35 10/31/18 05:03 85 16 35 10/31/18 04:00 77 10/31/18 04:00 35 10/31/18 04:00 Mechanical Ventilator 10/31/18 04:00 98.5 78 18 117/91 (100) 100 10/31/18 02:51 81 20 35 10/31/18 01:08 84 20 35 10/31/18 00:00 93 10/31/18 00:00 98.7 88 20 134/74 (94) 99 10/31/18 00:00 35 10/31/18 00:00 Mechanical Ventilator 10/30/18 23:05 88 16 35 10/30/18 21:01 83 13 35 10/30/18 20:00 98.2 82 20 144/68 (93) 97 10/30/18 20:00 82 10/30/18 20:00 Mechanical Ventilator 10/30/18 20:00 35 10/30/18 19:07 83 22 35 10/30/18 17:02 86 14 35 10/30/18 16:00 Mechanical Ventilator 10/30/18 16:00 98.2 85 16 137/55 (82) 100 10/30/18 16:00 82 10/30/18 16:00 35 Intake and Output 10/30/18 10/31/18 19:00 07:00 Intake Total 450 ml 515 ml Output Total 200 ml 200 ml Balance 250 ml 315 ml Intake Free Water 150 ml 100 ml IV Total 55 ml Tube Feeding 300 ml 360 ml Output Urine Total 200 ml 200 ml Laboratory Tests 10/31/18 04:00: White Blood Count 12.2H, Red Blood Count 3.01L, Hemoglobin 8.1L, Hematocrit 25.5L, Mean Corpuscular Volume 85, Mean Corpuscular Hemoglobin 27.0, Mean Corpuscular Hemoglobin Concent 31.9L, Red Cell Distribution Width 14.2, Platelet Count 346, Mean Platelet Volume 6.7, Neutrophils (%) (Auto) 76.1H, Lymphocytes (%) (Auto) 11.8L, Monocytes (%) (Auto) 8.9, Eosinophils (%) (Auto) 2.6, Basophils (%) (Auto) 0.5, Erythrocyte Sedimentation Rate 97H, Sodium Level 139, Potassium Level 3.9, Chloride Level 103, Carbon Dioxide Level 29, Anion Gap 7, Blood Urea Nitrogen 30H, Creatinine 1.1, Estimat Glomerular Filtration Rate > 60, Glucose Level 91, Calcium Level 8.9, Phosphorus Level 2.8, Magnesium Level 2.1, Total Bilirubin 0.2, Aspartate Amino Transf (AST/SGOT) 15, Alanine Aminotransferase (ALT/SGPT) 22, Alkaline Phosphatase 124H, C-Reactive Protein, Quantitative 9.9H, Total Protein 7.3, Albumin 2.6L, Globulin 4.7, Albumin/ Globulin Ratio 0.6L Height (Feet): 5 Height (Inches): 3.00 Weight (Pounds): 128 General Appearance: lethargic EENT: PERRL/EOMI Neck: normal alignment Cardiovascular: normal peripheral pulses, normal rate, regular rhythm Respiratory/Chest: chest wall non-tender, decreased breath sounds Abdomen: normal bowel sounds, non tender, soft Extremities: normal inspection Edema: no edema noted Arm (L), no edema noted Arm (R), no edema noted Leg (L), no edema noted Leg (R), no edema noted Pedal (L), no edema noted Pedal (R), no edema noted Generalized Neurologic: motor weakness Skin: normal pigmentation, warm/dry Gato Viveros DO Oct 31, 2018 15:38
[2018-10-31 16:00] VITALS: BP 125/74
--- NOTE | 2018-10-31 19:13 | NUR ---
HAND-OFF: Report given to Tamara Montalvo RN.
--- NOTE | 2018-10-31 19:18 | NUR ---
NURSE NOTES: received report from Francisco Rn, pt. in bed obtunded, opens eyes - non-verbal, no signs or symptoms of acute cardiac or respiratory distress noted, cardiac monitoring on, bed in lowest position and call light within easy reach, bed alarm on, side rails up x's 3 and safety brakes engaged, pt. appears to be tolerating current vent settings well - Simv 8, TV 600, Fio2 35% and Peep 8 and pressure support 8- no respiratory distress noted, Jevity 1.2 running via G tube at 30cc/hr- no residual noted- pt. is at goal, pt. has condom cath on and is intact and draining to gravity, pt. is clean and dry, PRASHANTH PICC - is intact and patent- TKO, comfort measures provided, safety measures continued, will continues with plan of care.
[2018-10-31 20:00] VITALS: BP 122/69
[2018-10-31] MEDS: Dyna-Hex 2% Top Sol 2oz TOPIC SCH (20:23)
[2018-11-01] VITALS: BP 119/79
--- NOTE | 2018-11-01 00:16 | NUR ---
NURSE NOTES: Report given to Ginger at [facility]- waiting for pt. to be picked up. Addendum: 11/01/18 at 0017 by ANDREA BELLE RN RN please disregard msg above entered in wrong chart for wrong pt.
[2018-11-01 03:21] LABS: BASOPHILS % (AUTO) 0.6 % (0.0-2.0); EOSINOPHILS % (AUTO) 2.7 % (0.0-3.0); HEMATOCRIT 25.8 % (42.0-52.0); HEMOGLOBIN 8.4 G/DL (14.2-18.0); LYMPHOCYTES % (AUTO) 12.4 % (20.0-45.0); MEAN CORPUSCULAR VOLUME 84 FL (80-99); MONOCYTES % (AUTO) 9.9 % (1.0-10.0); NEUTROPHILS % (AUTO) 74.4 % (45.0-75.0); PLATELET COUNT 363 K/UL (150-450); RED BLOOD COUNT 3.07 M/UL (4.70-6.10); RED CELL DISTRIBUTION WIDTH 14.1 % (11.6-14.8); WHITE BLOOD COUNT 13.2 K/UL (4.8-10.8)
[2018-11-01] MEDS: Meropenem 1 GM in NS 55 ML IVPB SCH ×2 (03:51→14:56)
[2018-11-01 04:00] VITALS: BP 139/76
[2018-11-01 04:44] LABS: ALANINE AMINOTRANSFERASE 20 U/L (12-78); ALBUMIN 2.6 G/DL (3.4-5.0); ALBUMIN/GLOBULIN RATIO 0.5 (1.0-2.7); ALKALINE PHOSPHATASE 128 U/L (46-116); ANION GAP 7 mmol/L (5-15); ASPARTATE AMINO TRANSFERASE 15 U/L (15-37); BILIRUBIN,TOTAL 0.2 MG/DL (0.2-1.0); BLOOD UREA NITROGEN 26 mg/dL (7-18); CARBON DIOXIDE 27 MMOL/L (21-32); CHLORIDE 105 MMOL/L (98-107); CREATININE 1.1 MG/DL (0.55-1.30); PHOSPHORUS 2.7 MG/DL (2.5-4.9); POTASSIUM 4.3 MMOL/L (3.5-5.1); SODIUM 139 MMOL/L (136-145)
--- NOTE | 2018-11-01 06:57 | NUR ---
HAND-OFF: Report given to Rachele HARTLEY, pt. remains stable and no signs of distress noted. Nurse will f/u on WBC's trending up.
--- NOTE | 2018-11-01 07:15 | NUR ---
NURSE NOTES: Received report from Tamara Montalvo RN. Patient awake in bed, nonverbal, unable to follow commands. Trach to vent with settings of SIMV 8, TV 600, FiO2 35%, PEEP 5, Pressure Support 8, no s/s of respiratory distress noted. GT feeding of Jevity 1.2 running @ 30 cc/hr, no residuals noted. HoB elevated. Condom catheter in place and draining well. Right upper arm PICC patent and asymptomatic. Bed locked in lowest position with padded side rails up x 3. All needs attended to. Will continue to monitor.
[2018-11-01 08:00] VITALS: BP 133/96
[2018-11-01] MEDS: Sucralfate 1gm tab GT SCH ×4 (08:37→20:09)
[2018-11-01] MEDS: Pantoprazole Inj IV SCH (08:37)
[2018-11-01] MEDS: Heparin 5000 units/ml inj SUBQ SCH ×2 (08:39→20:14)
--- NOTE | 2018-11-01 09:39 | NUR ---
RADIOLOGY DEPT CHEST X-RAY DONE.-P.DYE
--- NOTE | 2018-11-01 11:13 | NUR ---
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 CURRENT TF:Jevity 1.2 @30ml x22 hrs ENTERAL NUTRITION RECOMMENDATIONS: Jevity 1.2 @ 65ml/hr x 22 hrs to provide 1430ml, 1716kcal, 79g prot, 1154ml free water * Increase goal rate to 65ml/hr * Advance 10ml q 4-6 hrs as tolerated to goal rate * HOLD TF 1h before and 1 after synthroid administration. * Flush per MD/ HOB over 30 degrees . ADDITIONAL RECOMMENDATIONS: * Calibrated bedscale weight for accurate CBW, weekly wt monitoring * Monitor need for accucheck w/ SSI- h/o DM + hyperglycemia * Monitor lytes w/ TF, replete as needed * R foot DTI: Add JOYCELYN BID via PEG + Vit C 250mg daily .
--- NOTE | 2018-11-01 11:26 | Pulmonolgy Critical Care Note ---
Critical Care - Asmt/Plan Problems: (1) Sepsis (2) Respiratory failure, zpqwz-hd-lnnjeic (3) Hypothyroidism (4) MDR Acinetobacter baumannii infection (5) Alzheimer's dementia (6) Severe protein-calorie malnutrition (7) Feeding by G-tube Respiratory: monitor respiratory rate, adjust FIO2, CXR Cardiac: continue to monitor HR/BP Renal: F/U I&O Infectious Disease: check cultures, continue antibiotics Gastrointestinal: continue feedings/current rate - change to feeding recommended by riprap placer Endocrine: monitor blood sugar Hematologic: monitor H/H, transfuse if hgb<8.5 Neurologic: PRN Ativan, PRN Morphine, keep patient comfortable Affect: PRN ativan Prophylaxis: Protonix Notes Reviewed: cardio, 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 with: nurses, consultants, [facility] consulting manager - Objective Last 24 Hour Vital Signs Date Time Temp Pulse Resp B/P (MAP) Pulse Ox O2 Delivery O2 Flow Rate FiO2 11/01/18 08:00 35 11/01/18 08:00 77 11/01/18 08:00 Mechanical Ventilator 11/01/18 08:00 98.2 87 18 133/96 (108) 100 11/01/18 04:37 76 19 35 11/01/18 04:00 35 11/01/18 04:00 98.6 82 22 139/76 (97) 99 11/01/18 04:00 70 11/01/18 04:00 Mechanical Ventilator 11/01/18 03:20 78 17 35 11/01/18 01:21 76 15 35 11/01/18 00:00 81 11/01/18 00:00 Mechanical Ventilator 11/01/18 00:00 35 11/01/18 00:00 98.4 86 19 119/79 (92) 98 10/31/18 23:07 82 18 35 10/31/18 20:57 86 16 35 10/31/18 20:00 82 10/31/18 20:00 Mechanical Ventilator 10/31/18 20:00 35 10/31/18 20:00 98.6 78 16 122/69 (86) 98 10/31/18 19:19 84 18 35 10/31/18 16:52 89 18 35 10/31/18 16:00 86 10/31/18 16:00 99.1 84 17 125/74 (91) 100 10/31/18 16:00 35 10/31/18 16:00 Mechanical Ventilator 10/31/18 15:09 80 18 35 10/31/18 12:54 80 15 35 10/31/18 12:00 97.9 80 13 132/69 (90) 100 10/31/18 12:00 35 10/31/18 12:00 Mechanical Ventilator 10/31/18 12:00 78 Status: awake Condition: critical Neck: full ROM Lungs: chest wall tender Heart: HR/BP stable, regular Abdomen: soft, active bowel sounds Extremities: edema Decubiti: location, stage Critical Care - Subjective ROS Limited/Unobtainable: Yes Condition: critical EKG Rhythm: Sinus Rhythm FI02: 35 Vent Support Breath Rate: 8 Vent Support Mode: IMV/SIMV Vent Tidal Volume: 600 Sputum Amount: Moderate PEEP: 5.0 PIP: 30 Tube Feeding Amount: 30 I&O: Intake and Output 10/31/18 11/01/18 19:00 07:00 Intake Total 475 ml 485 ml Output Total 350 ml 400 ml Balance 125 ml 85 ml Intake Free Water 100 ml IV Total 55 ml 55 ml Tube Feeding 270 ml 330 ml Other 150 ml Output Urine Total 350 ml 400 ml # Bowel Movements 1 Labs: Laboratory Tests Test 11/01/18 02:22 White Blood Count 13.2 K/UL (4.8-10.8) H Red Blood Count 3.07 M/UL (4.70-6.10) L Hemoglobin 8.4 G/DL (14.2-18.0) L Hematocrit 25.8 % (42.0-52.0) L Mean Corpuscular Volume 84 FL (80-99) Mean Corpuscular Hemoglobin 27.4 PG (27.0-31.0) Mean Corpuscular Hemoglobin Concent 32.5 G/DL (32.0-36.0) Red Cell Distribution Width 14.1 % (11.6-14.8) Platelet Count 363 K/UL (150-450) Mean Platelet Volume 6.4 FL (6.5-10.1) L Neutrophils (%) (Auto) 74.4 % (45.0-75.0) Lymphocytes (%) (Auto) 12.4 % (20.0-45.0) L Monocytes (%) (Auto) 9.9 % (1.0-10.0) Eosinophils (%) (Auto) 2.7 % (0.0-3.0) Basophils (%) (Auto) 0.6 % (0.0-2.0) Erythrocyte Sedimentation Rate 110 MM/HR (0-20) H Sodium Level 139 MMOL/L (136-145) Potassium Level 4.3 MMOL/L (3.5-5.1) Chloride Level 105 MMOL/L (98-107) Carbon Dioxide Level 27 MMOL/L (21-32) Anion Gap 7 mmol/L (5-15) Blood Urea Nitrogen 26 mg/dL (7-18) H Creatinine 1.1 MG/DL (0.55-1.30) Estimat Glomerular Filtration Rate > 60 mL/min (>60) Glucose Level 104 MG/DL (74-106) Calcium Level 9.0 MG/DL (8.5-10.1) Phosphorus Level 2.7 MG/DL (2.5-4.9) Magnesium Level 2.0 MG/DL (1.8-2.4) Total Bilirubin 0.2 MG/DL (0.2-1.0) Aspartate Amino Transf (AST/SGOT) 15 U/L (15-37) Alanine Aminotransferase (ALT/SGPT) 20 U/L (12-78) Alkaline Phosphatase 128 U/L (46-116) H C-Reactive Protein, Quantitative 8.0 mg/dL (0.00-0.90) H Total Protein 7.5 G/DL (6.4-8.2) Albumin 2.6 G/DL (3.4-5.0) L Globulin 4.9 g/dL Albumin/Globulin Ratio 0.5 (1.0-2.7) L Huma Keating MD Nov 01, 2018 11:26
[2018-11-01 12:00] VITALS: BP 128/80
--- NOTE | 2018-11-01 12:13 | Diagnostic Imaging Report ---
Indication: Dyspnea Comparison: 10/28/2018 A single view chest radiograph was obtained. Findings: PICC line has been passed. The tip is in the in the SVC. Tracheostomy again noted. Heart size is stable. There is mild atelectasis at the right lung base. IMPRESSION: PICC line in good position
[2018-11-01] MEDS ORDERED: Iron Sucrose 200 MG in NS 110 ML IV ONE (13:30)
--- NOTE | 2018-11-01 14:49 | General Progress Note ---
Assessment/Plan Problem List: (1) Acute renal failure ICD Codes: N17.9 - Acute kidney failure, unspecified SNOMED: 73648317 (2) Sepsis ICD Codes: A41.9 - Sepsis, unspecified organism SNOMED: 04018053 Qualifiers: Qualified Codes: A41.9 - Sepsis, unspecified organism (3) Severe protein-calorie malnutrition ICD Codes: E43 - Unspecified severe protein-calorie malnutrition SNOMED: 088792525 (4) Feeding by G-tube ICD Codes: Z93.1 - Gastrostomy status SNOMED: 061095683, 186546235 (5) Respiratory failure, [id number]-lqifvzz ICD Codes: J96.20 - Respiratory failure, fhihw-kn-ktuujqd SNOMED: 34092094 (6) UTI (urinary tract infection) ICD Codes: N39.0 - Urinary tract infection, site not specified SNOMED: 94435038 Qualifiers: Qualified Codes: N39.0 - Urinary tract infection, site not specified (7) Alzheimer's dementia ICD Codes: G30.9 - Alzheimer's disease, unspecified SNOMED: 18074879 (8) Anemia ICD Codes: D64.9 - Anemia, unspecified SNOMED: 013850864 Status: unchanged Assessment/Plan vent abx cbc bmp am Subjective Constitutional: Reports: weakness Allergies: Coded Allergies: NO KNOWN DRUG ALLERGIES (Verified Allergy, Unknown, 09/11/16) All Systems: reviewed and negative except above Subjective trach vent altered Objective Last 24 Hour Vital Signs Date Time Temp Pulse Resp B/P (MAP) Pulse Ox O2 Delivery O2 Flow Rate FiO2 11/01/18 12:00 35 11/01/18 12:00 Mechanical Ventilator 11/01/18 12:00 98.2 82 16 128/80 (96) 100 11/01/18 08:00 35 11/01/18 08:00 77 11/01/18 08:00 Mechanical Ventilator 11/01/18 08:00 98.2 87 18 133/96 (108) 100 11/01/18 04:37 76 19 35 11/01/18 04:00 35 11/01/18 04:00 98.6 82 22 139/76 (97) 99 11/01/18 04:00 70 11/01/18 04:00 Mechanical Ventilator 11/01/18 03:20 78 17 35 11/01/18 01:21 76 15 35 11/01/18 00:00 81 11/01/18 00:00 Mechanical Ventilator 11/01/18 00:00 35 11/01/18 00:00 98.4 86 19 119/79 (92) 98 10/31/18 23:07 82 18 35 10/31/18 20:57 86 16 35 10/31/18 20:00 82 10/31/18 20:00 Mechanical Ventilator 10/31/18 20:00 35 10/31/18 20:00 98.6 78 16 122/69 (86) 98 10/31/18 19:19 84 18 35 10/31/18 16:52 89 18 35 10/31/18 16:00 86 10/31/18 16:00 99.1 84 17 125/74 (91) 100 10/31/18 16:00 35 10/31/18 16:00 Mechanical Ventilator 10/31/18 15:09 80 18 35 Intake and Output 10/31/18 11/01/18 19:00 07:00 Intake Total 475 ml 515 ml Output Total 350 ml 400 ml Balance 125 ml 115 ml Intake Free Water 100 ml IV Total 55 ml 55 ml Tube Feeding 270 ml 360 ml Other 150 ml Output Urine Total 350 ml 400 ml # Bowel Movements 1 Laboratory Tests 11/01/18 02:22: White Blood Count 13.2H, Red Blood Count 3.07L, Hemoglobin 8.4L, Hematocrit 25.8L, Mean Corpuscular Volume 84, Mean Corpuscular Hemoglobin 27.4, Mean Corpuscular Hemoglobin Concent 32.5, Red Cell Distribution Width 14.1, Platelet Count 363, Mean Platelet Volume 6.4L, Neutrophils (%) (Auto) 74.4, Lymphocytes ( %) (Auto) 12.4L, Monocytes (%) (Auto) 9.9, Eosinophils (%) (Auto) 2.7, Basophils (%) (Auto) 0.6, Erythrocyte Sedimentation Rate 110H, Sodium Level 139 , Potassium Level 4.3, Chloride Level 105, Carbon Dioxide Level 27, Anion Gap 7 , Blood Urea Nitrogen 26H, Creatinine 1.1, Estimat Glomerular Filtration Rate > 60, Glucose Level 104, Calcium Level 9.0, Phosphorus Level 2.7, Magnesium Level 2.0, Total Bilirubin 0.2, Aspartate Amino Transf (AST/SGOT) 15, Alanine Aminotransferase (ALT/SGPT) 20, Alkaline Phosphatase 128H, C-Reactive Protein, Quantitative 8.0H, Total Protein 7.5, Albumin 2.6L, Globulin 4.9, Albumin/ Globulin Ratio 0.5L Height (Feet): 5 Height (Inches): 3.00 Weight (Pounds): 128 General Appearance: lethargic EENT: normal ENT inspection Neck: non-tender Cardiovascular: normal peripheral pulses, normal rate, regular rhythm Respiratory/Chest: chest wall non-tender, lungs clear, normal breath sounds Abdomen: normal bowel sounds, non tender, soft Extremities: normal inspection Edema: no edema noted Arm (L), no edema noted Arm (R), no edema noted Leg (L), no edema noted Leg (R), no edema noted Pedal (L), no edema noted Pedal (R), no edema noted Generalized Neurologic: motor weakness Skin: normal pigmentation, warm/dry Gato Viveros DO Nov 01, 2018 14:49
--- NOTE | 2018-11-01 15:41 | Nephrology Progress Note ---
Assessment/Plan Problem List: (1) Acute renal failure (2) Sepsis (3) Severe protein-calorie malnutrition (4) Hypothyroidism Assessment (1) Tracheostomy dependence Respiratory failure, lvtne-sn-akwxehj (2) Sepsis , Leukocytosis (3) GI bleed (4) Acute renal failure, Cr 1.4 (5) HypoThyroidism (6) Alzheimer's (7) Severe protein-calorie malnutrition (8) Feeding by G-tube Plan Antibiotics K supplement pulm support monitor renal parameters Avoid Nephrotoxics check H&H Subjective ROS Limited/Unobtainable: Yes Objective Objective Last 24 Hour Vital Signs Date Time Temp Pulse Resp B/P (MAP) Pulse Ox O2 Delivery O2 Flow Rate FiO2 11/01/18 12:00 35 11/01/18 12:00 Mechanical Ventilator 11/01/18 12:00 98.2 82 16 128/80 (96) 100 11/01/18 08:00 35 11/01/18 08:00 77 11/01/18 08:00 Mechanical Ventilator 11/01/18 08:00 98.2 87 18 133/96 (108) 100 11/01/18 04:37 76 19 35 11/01/18 04:00 35 11/01/18 04:00 98.6 82 22 139/76 (97) 99 11/01/18 04:00 70 11/01/18 04:00 Mechanical Ventilator 11/01/18 03:20 78 17 35 11/01/18 01:21 76 15 35 11/01/18 00:00 81 11/01/18 00:00 Mechanical Ventilator 11/01/18 00:00 35 11/01/18 00:00 98.4 86 19 119/79 (92) 98 10/31/18 23:07 82 18 35 10/31/18 20:57 86 16 35 10/31/18 20:00 82 10/31/18 20:00 Mechanical Ventilator 10/31/18 20:00 35 10/31/18 20:00 98.6 78 16 122/69 (86) 98 10/31/18 19:19 84 18 35 10/31/18 16:52 89 18 35 10/31/18 16:00 86 10/31/18 16:00 99.1 84 17 125/74 (91) 100 10/31/18 16:00 35 10/31/18 16:00 Mechanical Ventilator Intake and Output 10/31/18 11/01/18 19:00 07:00 Intake Total 475 ml 515 ml Output Total 350 ml 400 ml Balance 125 ml 115 ml Intake Free Water 100 ml IV Total 55 ml 55 ml Tube Feeding 270 ml 360 ml Other 150 ml Output Urine Total 350 ml 400 ml # Bowel Movements 1 Laboratory Tests 11/01/18 02:22: White Blood Count 13.2H, Red Blood Count 3.07L, Hemoglobin 8.4L, Hematocrit 25.8L, Mean Corpuscular Volume 84, Mean Corpuscular Hemoglobin 27.4, Mean Corpuscular Hemoglobin Concent 32.5, Red Cell Distribution Width 14.1, Platelet Count 363, Mean Platelet Volume 6.4L, Neutrophils (%) (Auto) 74.4, Lymphocytes ( %) (Auto) 12.4L, Monocytes (%) (Auto) 9.9, Eosinophils (%) (Auto) 2.7, Basophils (%) (Auto) 0.6, Erythrocyte Sedimentation Rate 110H, Sodium Level 139 , Potassium Level 4.3, Chloride Level 105, Carbon Dioxide Level 27, Anion Gap 7 , Blood Urea Nitrogen 26H, Creatinine 1.1, Estimat Glomerular Filtration Rate > 60, Glucose Level 104, Calcium Level 9.0, Phosphorus Level 2.7, Magnesium Level 2.0, Total Bilirubin 0.2, Aspartate Amino Transf (AST/SGOT) 15, Alanine Aminotransferase (ALT/SGPT) 20, Alkaline Phosphatase 128H, C-Reactive Protein, Quantitative 8.0H, Total Protein 7.5, Albumin 2.6L, Globulin 4.9, Albumin/ Globulin Ratio 0.5L Height (Feet): 5 Height (Inches): 3.00 Weight (Pounds): 128 General Appearance: no apparent distress Cardiovascular: normal rate Respiratory/Chest: decreased breath sounds Abdomen: soft Objective no change Sav Salvador MD Nov 01, 2018 15:41
[2018-11-01 16:00] VITALS: BP 141/63
--- NOTE | 2018-11-01 17:54 | NUR ---
RESPIRATORY NOTE: PT. REMAINED STABLE ON CMV WITH CURRENT SETTING. SXN PRN WITHOUT ADVERSE REACTION. VENT CIRCUIT AND SX TUBBING SECURE AND OUT OF THE WAY. NO S/S OF RESPIRATORY DISTRESS NOTED AT THIS TIME.
--- NOTE | 2018-11-01 18:11 | Infectious Diseases Prog Note ---
Assessment/Plan Assessment/Plan Assessment: Sepsis; improving- ?2ry to UTI -11/01 CXR: There is mild atelectasis at the right lung base. 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 diff Dysphagia s/p G-tube Anemia. CVA/TIA w/ hemiplegia functional quadriplegia chronic encephalopathy CAD CHF Dm2 GIB s/p multiple EGDs in the past hx of severe esophagitis schizoaffective disease [facility] resident multiple admissions VRE colonization Plan: -Switch MEropenem #4 to Amikacin to cover sputum pathogens given leukocytosis -10/29 SP IV Vanco #2, Cefepime #2 and Tigecycline #1 -10/28 SP LEavquin x1 -10/09 SP Ertapenem #5 - 10/04 SP Meropenem #2 -10/03/18 SP IV Vancomycin #2 and Cefepime #2 -08/09/18 SP Bactrim #7 -08/03 SP Vancomycin and Cefepime #3 -08/01/18 SP Ceftriaxone x1 -f/u cx -Monitor CBC/CMP, temperatures -wound care -aspiration precautions Subjective Allergies: Coded Allergies: NO KNOWN DRUG ALLERGIES (Verified Allergy, Unknown, 09/11/16) Subjective afebrile Wbc overall improved Objective Vital Signs Last 24 Hour Vital Signs Date Time Temp Pulse Resp B/P (MAP) Pulse Ox O2 Delivery O2 Flow Rate FiO2 11/01/18 16:00 35 11/01/18 16:00 Mechanical Ventilator 11/01/18 16:00 97.9 83 18 141/63 (89) 100 11/01/18 16:00 73 11/01/18 12:00 35 11/01/18 12:00 Mechanical Ventilator 2/22/19 12:00 81 11/01/18 12:00 98.2 82 16 128/80 (96) 100 11/01/18 08:00 35 11/01/18 08:00 77 11/01/18 08:00 Mechanical Ventilator 11/01/18 08:00 98.2 87 18 133/96 (108) 100 11/01/18 07:15 77 17 35 11/01/18 04:37 76 19 35 11/01/18 04:00 35 11/01/18 04:00 98.6 82 22 139/76 (97) 99 11/01/18 04:00 70 11/01/18 04:00 Mechanical Ventilator 11/01/18 03:20 78 17 35 11/01/18 01:21 76 15 35 11/01/18 00:00 81 11/01/18 00:00 Mechanical Ventilator 11/01/18 00:00 35 11/01/18 00:00 98.4 86 19 119/79 (92) 98 10/31/18 23:07 82 18 35 10/31/18 20:57 86 16 35 10/31/18 20:00 82 10/31/18 20:00 Mechanical Ventilator 10/31/18 20:00 35 10/31/18 20:00 98.6 78 16 122/69 (86) 98 10/31/18 19:19 84 18 35 Height (Feet): 5 Height (Inches): 3.00 Weight (Pounds): 128 Objective Status: awake Condition: critical HEENT: atraumatic Lungs: chest wall tender, rales Heart: HR/BP stable Abdomen: soft, non-tender Extremities: no C/C/E, edema Decubiti: stage Laboratory Tests Test 11/01/18 02:22 White Blood Count 13.2 K/UL (4.8-10.8) H Red Blood Count 3.07 M/UL (4.70-6.10) L Hemoglobin 8.4 G/DL (14.2-18.0) L Hematocrit 25.8 % (42.0-52.0) L Mean Corpuscular Volume 84 FL (80-99) Mean Corpuscular Hemoglobin 27.4 PG (27.0-31.0) Mean Corpuscular Hemoglobin Concent 32.5 G/DL (32.0-36.0) Red Cell Distribution Width 14.1 % (11.6-14.8) Platelet Count 363 K/UL (150-450) Mean Platelet Volume 6.4 FL (6.5-10.1) L Neutrophils (%) (Auto) 74.4 % (45.0-75.0) Lymphocytes (%) (Auto) 12.4 % (20.0-45.0) L Monocytes (%) (Auto) 9.9 % (1.0-10.0) Eosinophils (%) (Auto) 2.7 % (0.0-3.0) Basophils (%) (Auto) 0.6 % (0.0-2.0) Erythrocyte Sedimentation Rate 110 MM/HR (0-20) H Sodium Level 139 MMOL/L (136-145) Potassium Level 4.3 MMOL/L (3.5-5.1) Chloride Level 105 MMOL/L (98-107) Carbon Dioxide Level 27 MMOL/L (21-32) Anion Gap 7 mmol/L (5-15) Blood Urea Nitrogen 26 mg/dL (7-18) H Creatinine 1.1 MG/DL (0.55-1.30) Estimat Glomerular Filtration Rate > 60 mL/min (>60) Glucose Level 104 MG/DL (74-106) Calcium Level 9.0 MG/DL (8.5-10.1) Phosphorus Level 2.7 MG/DL (2.5-4.9) Magnesium Level 2.0 MG/DL (1.8-2.4) Total Bilirubin 0.2 MG/DL (0.2-1.0) Aspartate Amino Transf (AST/SGOT) 15 U/L (15-37) Alanine Aminotransferase (ALT/SGPT) 20 U/L (12-78) Alkaline Phosphatase 128 U/L (46-116) H C-Reactive Protein, Quantitative 8.0 mg/dL (0.00-0.90) H Total Protein 7.5 G/DL (6.4-8.2) Albumin 2.6 G/DL (3.4-5.0) L Globulin 4.9 g/dL Albumin/Globulin Ratio 0.5 (1.0-2.7) L Current Medications Medications (Trade) Dose Ordered Sig/Wanda Route PRN Reason Start Time Stop Time Status Last Admin Dose Admin Acetaminophen (Tylenol) 650 mg Q4H PRN ORAL FEVER 10/28/18 18:30 11/27/18 18:29 Albuterol/ Ipratropium (Albuterol/ Ipratropium) 3 ml Q4H PRN HHN Shortness of Breath 10/28/18 18:30 11/02/18 18:29 Chlorhexidine Gluconate (Jasmin-Hex 2%) 1 applic DAILY@2000 TOPIC 10/29/18 20:00 11/28/18 19:59 10/31/18 20:23 Dextrose (Dextrose 50%) 25 ml Q30M PRN IV Hypoglycemia 10/30/18 15:00 11/29/18 14:53 Dextrose (Dextrose 50%) 50 ml Q30M PRN IV hypoglycemia 10/30/18 15:00 11/29/18 14:59 Heparin Sodium (Porcine) (Heparin 5000 units/ml) 5,000 units EVERY 12 HOURS SUBQ 10/28/18 21:00 11/27/18 20:59 11/01/18 08:39 Levothyroxine Sodium (Synthroid) 50 mcg DAILY GT 10/29/18 09:00 11/28/18 08:59 11/01/18 08:37 Lorazepam (Ativan 2mg/ml 1ml) 2 mg Q2H PRN IV For Anxiety 10/28/18 18:30 11/04/18 18:29 Meropenem 1 gm/ Sodium Chloride 55 ml @ 110 mls/hr Q12H IVPB 10/29/18 15:00 11/03/18 14:59 11/01/18 14:56 Morphine Sulfate (Morphine Sulfate) 4 mg Q4H PRN IVP Severe Pain (Pain Scale 7-10) 10/28/18 18:30 11/04/18 18:29 Ondansetron HCl (Zofran) 4 mg Q6H PRN IVP Nausea & Vomiting 10/28/18 18:30 11/27/18 18:29 Pantoprazole (Protonix) 40 mg DAILY IV 10/29/18 09:00 11/28/18 08:59 11/01/18 08:37 Polyethylene Glycol (Miralax) 17 gm DAILYPRN PRN ORAL Constipation 10/28/18 18:30 11/27/18 18:29 Sucralfate (Carafate) 1 gm FOUR TIMES A DAY GT 10/28/18 21:00 11/27/18 20:59 11/01/18 17:48 Lisy Lai M.D. Nov 01, 2018 18:11
[2018-11-01] MEDS ORDERED: Amikacin Rx to dose MISC PRN (18:15)
--- NOTE | 2018-11-01 18:43 | NUR ---
RESPIRATORY NOTE: Received pt on SIMV 8, 600VT, PS 8, 35%, PEEP +5. Pt is trach-dependent w/ a cuffed, Portex 8 tube. Pt is awake/disoriented. B/S nora. rhonchi, sxn small to moderate amounts of thick/thin, frothy, pale-yellow secretions. Vent plugged into red outlet, ambubag & spare trach kit at bedside. Pt resting comfortably, in no apparent distress at this time. Will continue plan of care.
--- NOTE | 2018-11-01 19:35 | NUR ---
NURSE NOTES: received report from Francisco Walker, pt. in bed obtunded, opens eyes - non-verbal, no signs or symptoms of acute cardiac or respiratory distress noted, cardiac monitoring on, bed in lowest position and call light within easy reach, bed alarm on, side rails up x's 3 and safety brakes engaged, pt. appears to be tolerating current vent settings well - Simv 8, TV 600, Fio2 35% and Peep 8 and pressure support 8- no respiratory distress noted, Jevity 1.2 running via G tube at 50cc/hr- no residual noted-Goal is 65cc/hr. Pt. has condom cath on and is intact and draining to gravity, pt. is clean and dry, PRASHANTH PICC - is intact and patent- TKO, comfort measures provided, safety measures continued, will continues with plan of care. Addendum: 11/01/18 at 6 by ANDREA BELLE RN RN side rails padded for seizure precautions- no seizure activity noted. Will continue to monitor pt. and with plan of care.
--- NOTE | 2018-11-01 19:38 | NUR ---
HAND-OFF: Report given to Tamara Montalvo RN.
[2018-11-01 20:00] VITALS: BP 120/70
[2018-11-01] MEDS ORDERED: Amikacin 850 MG in NS 110 ML IV SCH (20:00)
[2018-11-01] MEDS: Dyna-Hex 2% Top Sol 2oz TOPIC SCH (20:09)
[2018-11-01] MEDS ORDERED: Tubing IV Secondary IV ONE ×2 (20:20→20:25)
[2018-11-01] MEDS ORDERED: NS 275ml ONE ×2 (20:20→20:25)
[2018-11-02] VITALS: BP 108/52
[2018-11-02 04:00] VITALS: BP 122/80
--- NOTE | 2018-11-02 07:00 | NUR ---
Received Patient on Vent SIMV VT 600, RR 8, FIO2 35%, PEEP +5, PS 8. Patient is trached with PORTEX 8, secured by trache ties. Breath sounds reveal bilateral rhonchi. Suction thick white secretions PRN. Patient showing no SOB. Slightly agitated when suctioned. Vent plugged into red outlet. Alarms are on and audible. Will continue to monitor throughout the day.
--- NOTE | 2018-11-02 07:09 | NUR ---
HAND-OFF: Report given to Marge Rn, pt. stable and no signs of distress noted.
--- NOTE | 2018-11-02 07:10 | NUR ---
NURSE NOTES: Received patient from ODILIA Haq. Patient VS stable at this time with no sign of acute distress. Patient sleeping at this time. Patient on trach to ventilator with setting of SIMV, pressure support 8, TV 600, FiO2 35%, and PEEP 8 at this time. Patient tolerating setting with oxygen saturation of 93% at this time. Patient has G tube that is patent and asymptomatic and running jevity 1.2 at 65mL/hr at this time. Patient has a condom catheter that is patent and draining at this time. Patient has a right leg dried wound that is covered with optifoam at this time. Patient has a right upper arm PICC that is patent and saline locked at this time. Patient bed in low position with bed alarm on and call light in reach at this time.
[2018-11-02 07:18] LABS: BASOPHILS % (AUTO) 0.3 % (0.0-2.0); EOSINOPHILS % (AUTO) 3.9 % (0.0-3.0); HEMATOCRIT 26.5 % (42.0-52.0); HEMOGLOBIN 8.4 G/DL (14.2-18.0); LYMPHOCYTES % (AUTO) 15.8 % (20.0-45.0); MEAN CORPUSCULAR VOLUME 85 FL (80-99); MONOCYTES % (AUTO) 10.7 % (1.0-10.0); NEUTROPHILS % (AUTO) 69.3 % (45.0-75.0); PLATELET COUNT 338 K/UL (150-450); RED BLOOD COUNT 3.11 M/UL (4.70-6.10); RED CELL DISTRIBUTION WIDTH 14.5 % (11.6-14.8); WHITE BLOOD COUNT 9.5 K/UL (4.8-10.8)
--- NOTE | 2018-11-02 07:35 | Pulmonology Progress Note ---
Assessment/Plan Assessment/Plan ASSESSMENT Sepsis, probably due to UTI Hx of recurrent UTI Respiratory failure, acute on chronic, vent dependent Dysphagia, GT feeding severe protein calorie malnutrition KAYLENE/ARF Hx of C dif colitis Anemia Hypothyroidism Alzheimer dementia PLAN OF CARE LUIS vent support , pulm baseline ABG fup with CXR abx as per ID urine cx negative , blood cx negative, sputum culture grew KPC , E. coli ESBL and Proteus leukocytosis resolved strict aspiration precaution , G-tube feeding , nutr recs implemented in POC TSH elevated , increase levothyroxine dose DVT, GI prophylaxis GI prophylaxis monitor H&H with goal to keep hgb above 7 anemia workup consistent with anemia of chronic disease, status post IV Venofer x1 monitor renal parameters, lytes, correct lytes as needed, creat down to normal bowel regimen supportive care case discussed and evaluated by supervising physician Subjective Allergies: Coded Allergies: NO KNOWN DRUG ALLERGIES (Verified Allergy, Unknown, 09/11/16) Subjective leuk resolved, afebrile, ESR still significantly elevated no signs of resp- distress on current settings Objective Last 24 Hour Vital Signs Date Time Temp Pulse Resp B/P (MAP) Pulse Ox O2 Delivery O2 Flow Rate FiO2 11/02/18 07:03 87 18 35 11/02/18 05:08 84 15 35 11/02/18 04:00 Mechanical Ventilator 11/02/18 04:00 97.7 75 20 122/80 (94) 97 75 11/02/18 04:00 73 11/02/18 04:00 35 11/02/18 02:59 77 19 35 11/02/18 00:40 86 17 35 11/02/18 00:00 Mechanical Ventilator 11/02/18 00:00 75 11/02/18 00:00 98.1 68 28 108/52 (70) 97 11/01/18 23:12 84 21 35 11/01/18 20:56 78 16 35 11/01/18 20:00 Mechanical Ventilator 11/01/18 20:00 98.1 80 16 120/70 (87) 100 11/01/18 20:00 35 11/01/18 20:00 84 11/01/18 18:41 81 15 35 11/01/18 17:54 70 12 35 11/01/18 16:00 35 11/01/18 16:00 Mechanical Ventilator 11/01/18 16:00 97.9 83 18 141/63 (89) 100 11/01/18 16:00 73 11/01/18 15:35 87 15 35 11/01/18 13:18 80 15 35 11/01/18 12:47 75 14 35 11/01/18 12:00 35 11/01/18 12:00 Mechanical Ventilator 11/01/18 12:00 81 11/01/18 12:00 98.2 82 16 128/80 (96) 100 11/01/18 09:10 82 21 35 11/01/18 08:00 35 11/01/18 08:00 77 11/01/18 08:00 Mechanical Ventilator 11/01/18 08:00 98.2 87 18 133/96 (108) 100 Intake and Output 11/01/18 11/02/18 18:59 06:59 Intake Total 705 ml 903.4 ml Output Total 400 ml 350 ml Balance 305 ml 553.4 ml Intake Free Water 100 ml IV Total 175 ml 113.4 ml Tube Feeding 380 ml 690 ml Other 150 ml Output Urine Total 400 ml 350 ml # Bowel Movements 2 3 General Appearance: no acute distress, other - bedridden vent dependent male vent SIMV 600-35%-8 PEEP 5 HEENT: normocephalic, atraumatic, anicteric, status post trach - Portex#8, secretions moderate, yelllow, thin Respiratory/Chest: no respiratory distress, rhonchi - few isoalted Cardiovascular: normal peripheral pulses, normal rate, regular rhythm - SR on tele , no JVD Abdomen: normal bowel sounds, soft, non tender, other - G tube Extremities: no edema, pedal pulses normal, other - spastic LE Neurologic/Psychiatric: abnormal gait - bedridden , other - awake, not responsive to verbal stimuli Musculoskeletal: atrophy - BLE Laboratory Tests 11/02/18 04:00: White Blood Count 9.5, Red Blood Count 3.11L, Hemoglobin 8.4L, Hematocrit 26.5L , Mean Corpuscular Volume 85, Mean Corpuscular Hemoglobin 27.0, Mean Corpuscular Hemoglobin Concent 31.6L, Red Cell Distribution Width 14.5, Platelet Count 338, Mean Platelet Volume 6.3L, Neutrophils (%) (Auto) 69.3, Lymphocytes (%) (Auto) 15.8L, Monocytes (%) (Auto) 10.7H, Eosinophils (%) (Auto ) 3.9H, Basophils (%) (Auto) 0.3, Erythrocyte Sedimentation Rate [Pending], Sodium Level [Pending], Potassium Level [Pending], Chloride Level [Pending], Carbon Dioxide Level [Pending], Blood Urea Nitrogen [Pending], Creatinine [ Pending], Estimat Glomerular Filtration Rate [Pending], Glucose Level [Pending] , Calcium Level [Pending], Phosphorus Level [Pending], Magnesium Level [Pending] , Total Bilirubin [Pending], Aspartate Amino Transf (AST/SGOT) [Pending], Alanine Aminotransferase (ALT/SGPT) [Pending], Alkaline Phosphatase [Pending], C -Reactive Protein, Quantitative [Pending], Total Protein [Pending], Albumin [ Pending], Globulin [Pending] Current Medications Medications (Trade) Dose Ordered Sig/Wanda Route PRN Reason Start Time Stop Time Status Last Admin Dose Admin Acetaminophen (Tylenol) 650 mg Q4H PRN ORAL FEVER 10/28/18 18:30 11/27/18 18:29 Albuterol/ Ipratropium (Albuterol/ Ipratropium) 3 ml Q4H PRN HHN Shortness of Breath 10/28/18 18:30 11/02/18 18:29 Amikacin Protocol (Amikacin pharmacy to dose) 1 ea DAILY PRN MISC Per rx protocol 11/01/18 18:15 12/01/18 18:14 Amikacin Sulfate 850 mg/Sodium Chloride 113.4 ml @ 113.4 mls/ hr Q24H IV 11/01/18 20:00 11/08/18 19:59 11/01/18 20:09 Chlorhexidine Gluconate (Jasmin-Hex 2%) 1 applic DAILY@2000 TOPIC 10/29/18 20:00 11/28/18 19:59 11/01/18 20:09 Dextrose (Dextrose 50%) 25 ml Q30M PRN IV Hypoglycemia 10/30/18 15:00 11/29/18 14:53 Dextrose (Dextrose 50%) 50 ml Q30M PRN IV hypoglycemia 10/30/18 15:00 11/29/18 14:59 Heparin Sodium (Porcine) (Heparin 5000 units/ml) 5,000 units EVERY 12 HOURS SUBQ 10/28/18 21:00 11/27/18 20:59 11/01/18 20:14 Levothyroxine Sodium (Synthroid) 50 mcg DAILY GT 10/29/18 09:00 11/28/18 08:59 11/01/18 08:37 Lorazepam (Ativan 2mg/ml 1ml) 2 mg Q2H PRN IV For Anxiety 10/28/18 18:30 11/04/18 18:29 Morphine Sulfate (Morphine Sulfate) 4 mg Q4H PRN IVP Severe Pain (Pain Scale 7-10) 10/28/18 18:30 11/04/18 18:29 Ondansetron HCl (Zofran) 4 mg Q6H PRN IVP Nausea & Vomiting 10/28/18 18:30 11/27/18 18:29 Pantoprazole (Protonix) 40 mg DAILY IV 10/29/18 09:00 11/28/18 08:59 11/01/18 08:37 Polyethylene Glycol (Miralax) 17 gm DAILYPRN PRN ORAL Constipation 10/28/18 18:30 11/27/18 18:29 Sucralfate (Carafate) 1 gm FOUR TIMES A DAY GT 10/28/18 21:00 11/27/18 20:59 11/01/18 20:09 Amina Garcia NP Nov 02, 2018 07:35
[2018-11-02 07:46] LABS: ALANINE AMINOTRANSFERASE 22 U/L (12-78); ALBUMIN 2.6 G/DL (3.4-5.0); ALBUMIN/GLOBULIN RATIO 0.5 (1.0-2.7); ALKALINE PHOSPHATASE 125 U/L (46-116); ANION GAP 7 mmol/L (5-15); ASPARTATE AMINO TRANSFERASE 17 U/L (15-37); BILIRUBIN,TOTAL 0.2 MG/DL (0.2-1.0); BLOOD UREA NITROGEN 29 mg/dL (7-18); CALCIUM 9.6 MG/DL (8.5-10.1); CARBON DIOXIDE 27 MMOL/L (21-32); CHLORIDE 107 MMOL/L (98-107); CREATININE 1.2 MG/DL (0.55-1.30); PHOSPHORUS 2.8 MG/DL (2.5-4.9); POTASSIUM 4.2 MMOL/L (3.5-5.1); SODIUM 141 MMOL/L (136-145)
[2018-11-02 08:00] VITALS: BP 120/80
--- NOTE | 2018-11-02 09:01 | General Progress Note ---
Assessment/Plan Problem List: (1) Acute renal failure ICD Codes: N17.9 - Acute kidney failure, unspecified SNOMED: 28098599 (2) Sepsis ICD Codes: A41.9 - Sepsis, unspecified organism SNOMED: 00284013 Qualifiers: Qualified Codes: A41.9 - Sepsis, unspecified organism (3) Severe protein-calorie malnutrition ICD Codes: E43 - Unspecified severe protein-calorie malnutrition SNOMED: 013241614 (4) Feeding by G-tube ICD Codes: Z93.1 - Gastrostomy status SNOMED: 474129225, 300621940 (5) Respiratory failure, [id number]-[id number] ICD Codes: J96.20 - Respiratory failure, mihul-hr-gaxplim SNOMED: 35944767 (6) UTI (urinary tract infection) ICD Codes: N39.0 - Urinary tract infection, site not specified SNOMED: 49413315 Qualifiers: Qualified Codes: N39.0 - Urinary tract infection, site not specified (7) Alzheimer's dementia ICD Codes: G30.9 - Alzheimer's disease, unspecified SNOMED: 53663367 (8) Anemia ICD Codes: D64.9 - Anemia, unspecified SNOMED: 636955536 Status: unchanged Assessment/Plan vent abx cbc bmp am Subjective Constitutional: Reports: weakness Allergies: Coded Allergies: NO KNOWN DRUG ALLERGIES (Verified Allergy, Unknown, 09/11/16) All Systems: reviewed and negative except above Subjective trach vent altered Objective Last 24 Hour Vital Signs Date Time Temp Pulse Resp B/P (MAP) Pulse Ox O2 Delivery O2 Flow Rate FiO2 11/02/18 08:00 Mechanical Ventilator 11/02/18 08:00 35 11/02/18 07:03 87 18 35 11/02/18 05:08 84 15 35 11/02/18 04:00 Mechanical Ventilator 11/02/18 04:00 97.7 75 20 122/80 (94) 97 75 11/02/18 04:00 73 11/02/18 04:00 35 11/02/18 02:59 77 19 35 11/02/18 00:40 86 17 35 11/02/18 00:00 Mechanical Ventilator 11/02/18 00:00 75 11/02/18 00:00 98.1 68 28 108/52 (70) 97 11/01/18 23:12 84 21 35 11/01/18 20:56 78 16 35 11/01/18 20:00 Mechanical Ventilator 11/01/18 20:00 98.1 80 16 120/70 (87) 100 11/01/18 20:00 35 11/01/18 20:00 84 11/01/18 18:41 81 15 35 11/01/18 17:54 70 12 35 11/01/18 16:00 35 11/01/18 16:00 Mechanical Ventilator 11/01/18 16:00 97.9 83 18 141/63 (89) 100 11/01/18 16:00 73 11/01/18 15:35 87 15 35 11/01/18 13:18 80 15 35 11/01/18 12:47 75 14 35 11/01/18 12:00 35 11/01/18 12:00 Mechanical Ventilator 11/01/18 12:00 81 11/01/18 12:00 98.2 82 16 128/80 (96) 100 11/01/18 09:10 82 21 35 Intake and Output 11/01/18 11/02/18 18:59 06:59 Intake Total 705 ml 903.4 ml Output Total 400 ml 350 ml Balance 305 ml 553.4 ml Intake Free Water 100 ml IV Total 175 ml 113.4 ml Tube Feeding 380 ml 690 ml Other 150 ml Output Urine Total 400 ml 350 ml # Bowel Movements 2 3 Laboratory Tests 11/02/18 04:00: White Blood Count 9.5, Red Blood Count 3.11L, Hemoglobin 8.4L, Hematocrit 26.5L , Mean Corpuscular Volume 85, Mean Corpuscular Hemoglobin 27.0, Mean Corpuscular Hemoglobin Concent 31.6L, Red Cell Distribution Width 14.5, Platelet Count 338, Mean Platelet Volume 6.3L, Neutrophils (%) (Auto) 69.3, Lymphocytes (%) (Auto) 15.8L, Monocytes (%) (Auto) 10.7H, Eosinophils (%) (Auto ) 3.9H, Basophils (%) (Auto) 0.3, Erythrocyte Sedimentation Rate [Pending], Sodium Level 141, Potassium Level 4.2, Chloride Level 107, Carbon Dioxide Level 27, Anion Gap 7, Blood Urea Nitrogen 29H, Creatinine 1.2, Estimat Glomerular Filtration Rate 59.9, Glucose Level 110H, Calcium Level 9.6, Phosphorus Level 2.8, Magnesium Level 2.1, Total Bilirubin 0.2, Aspartate Amino Transf (AST/SGOT ) 17, Alanine Aminotransferase (ALT/SGPT) 22, Alkaline Phosphatase 125H, C- Reactive Protein, Quantitative 6.9H, Total Protein 7.6, Albumin 2.6L, Globulin 5.0, Albumin/Globulin Ratio 0.5L 11/02/18 08:00: Random Amikacin Level 13.4 Height (Feet): 5 Height (Inches): 3.00 Weight (Pounds): 128 General Appearance: lethargic EENT: normal ENT inspection Neck: normal alignment Cardiovascular: normal peripheral pulses, normal rate, regular rhythm Respiratory/Chest: chest wall non-tender, lungs clear, normal breath sounds Abdomen: normal bowel sounds, non tender, soft Extremities: normal inspection Edema: no edema noted Arm (L), no edema noted Arm (R), no edema noted Leg (L), no edema noted Leg (R), no edema noted Pedal (L), no edema noted Pedal (R), no edema noted Generalized Neurologic: motor weakness Skin: normal pigmentation, warm/dry Gato Viveros DO Nov 02, 2018 09:01
[2018-11-02] MEDS: Pantoprazole Inj IV SCH (09:50)
[2018-11-02] MEDS: Sucralfate 1gm tab GT SCH ×4 (09:50→20:16)
[2018-11-02] MEDS: Heparin 5000 units/ml inj SUBQ SCH ×2 (09:52→20:18)
[2018-11-02] MEDS ORDERED: LORazepam Inj 2mg/ml 1ml IV PRN (10:30)
[2018-11-02] MEDS ORDERED: Morphine Sulfate 4mg/ml Inj (IV USE ONLY) IVP PRN (10:30)
[2018-11-02] MEDS ORDERED: Albuterol/Ipratropium 3ml neb HHN PRN (10:30)
--- NOTE | 2018-11-02 10:42 | Infectious Diseases Prog Note ---
Assessment/Plan Assessment/Plan Assessment: Sepsis; improving- ?2ry to UTI -11/01 CXR: There is mild atelectasis at the right lung base. 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 diff Dysphagia s/p G-tube Anemia. CVA/TIA w/ hemiplegia functional quadriplegia chronic encephalopathy CAD CHF Dm2 GIB s/p multiple EGDs in the past hx of severe esophagitis schizoaffective disease intermediate resident multiple admissions VRE colonization Plan: -Continue Amikacin #2/5 to cover sputum pathogens given leukocytosis -11/01 SP Meropenem #4 -10/29 SP IV Vanco #2, Cefepime #2 and Tigecycline #1 -10/28 SP LEavquin x1 -10/09 SP Ertapenem #5 - 10/04 SP Meropenem #2 -10/03/18 SP IV Vancomycin #2 and Cefepime #2 -08/09/18 SP Bactrim #7 -08/03 SP Vancomycin and Cefepime #3 -08/01/18 SP Ceftriaxone x1 -f/u cx -Monitor CBC/CMP, temperatures -wound care -aspiration precautions Subjective Allergies: Coded Allergies: NO KNOWN DRUG ALLERGIES (Verified Allergy, Unknown, 09/11/16) Subjective afebrile leukocytosis resolved Objective Vital Signs Last 24 Hour Vital Signs Date Time Temp Pulse Resp B/P (MAP) Pulse Ox O2 Delivery O2 Flow Rate FiO2 11/02/18 09:25 82 19 35 11/02/18 08:00 Mechanical Ventilator 11/02/18 08:00 86 11/02/18 08:00 35 11/02/18 07:03 87 18 35 11/02/18 05:08 84 15 35 11/02/18 04:00 Mechanical Ventilator 11/02/18 04:00 97.7 75 20 122/80 (94) 97 75 11/02/18 04:00 73 11/02/18 04:00 35 11/02/18 02:59 77 19 35 11/02/18 00:40 86 17 35 11/02/18 00:00 Mechanical Ventilator 11/02/18 00:00 75 11/02/18 00:00 98.1 68 28 108/52 (70) 97 11/01/18 23:12 84 21 35 11/01/18 20:56 78 16 35 11/01/18 20:00 Mechanical Ventilator 11/01/18 20:00 98.1 80 16 120/70 (87) 100 11/01/18 20:00 35 11/01/18 20:00 84 11/01/18 18:41 81 15 35 11/01/18 17:54 70 12 35 11/01/18 16:00 35 11/01/18 16:00 Mechanical Ventilator 11/01/18 16:00 97.9 83 18 141/63 (89) 100 11/01/18 16:00 73 11/01/18 15:35 87 15 35 11/01/18 13:18 80 15 35 11/01/18 12:47 75 14 35 11/01/18 12:00 35 11/01/18 12:00 Mechanical Ventilator 11/01/18 12:00 81 11/01/18 12:00 98.2 82 16 128/80 (96) 100 Height (Feet): 5 Height (Inches): 3.00 Weight (Pounds): 128 Objective Status: awake Condition: critical HEENT: atraumatic Lungs: chest wall tender, rales Heart: HR/BP stable Abdomen: soft, non-tender Extremities: no C/C/E, edema Decubiti: stage Laboratory Tests Test 11/02/18 04:00 11/02/18 08:00 White Blood Count 9.5 K/UL (4.8-10.8) Red Blood Count 3.11 M/UL (4.70-6.10) L Hemoglobin 8.4 G/DL (14.2-18.0) L Hematocrit 26.5 % (42.0-52.0) L Mean Corpuscular Volume 85 FL (80-99) Mean Corpuscular Hemoglobin 27.0 PG (27.0-31.0) Mean Corpuscular Hemoglobin Concent 31.6 G/DL (32.0-36.0) L Red Cell Distribution Width 14.5 % (11.6-14.8) Platelet Count 338 K/UL (150-450) Mean Platelet Volume 6.3 FL (6.5-10.1) L Neutrophils (%) (Auto) 69.3 % (45.0-75.0) Lymphocytes (%) (Auto) 15.8 % (20.0-45.0) L Monocytes (%) (Auto) 10.7 % (1.0-10.0) H Eosinophils (%) (Auto) 3.9 % (0.0-3.0) H Basophils (%) (Auto) 0.3 % (0.0-2.0) Erythrocyte Sedimentation Rate 86 MM/HR (0-20) H Sodium Level 141 MMOL/L (136-145) Potassium Level 4.2 MMOL/L (3.5-5.1) Chloride Level 107 MMOL/L (98-107) Carbon Dioxide Level 27 MMOL/L (21-32) Anion Gap 7 mmol/L (5-15) Blood Urea Nitrogen 29 mg/dL (7-18) H Creatinine 1.2 MG/DL (0.55-1.30) Estimat Glomerular Filtration Rate 59.9 mL/min (>60) Glucose Level 110 MG/DL (74-106) H Calcium Level 9.6 MG/DL (8.5-10.1) Phosphorus Level 2.8 MG/DL (2.5-4.9) Magnesium Level 2.1 MG/DL (1.8-2.4) Total Bilirubin 0.2 MG/DL (0.2-1.0) Aspartate Amino Transf (AST/SGOT) 17 U/L (15-37) Alanine Aminotransferase (ALT/SGPT) 22 U/L (12-78) Alkaline Phosphatase 125 U/L (46-116) H C-Reactive Protein, Quantitative 6.9 mg/dL (0.00-0.90) H Total Protein 7.6 G/DL (6.4-8.2) Albumin 2.6 G/DL (3.4-5.0) L Globulin 5.0 g/dL Albumin/Globulin Ratio 0.5 (1.0-2.7) L Random Amikacin Level 13.4 ug/mL Current Medications Medications (Trade) Dose Ordered Sig/Wanda Route PRN Reason Start Time Stop Time Status Last Admin Dose Admin Acetaminophen (Tylenol) 650 mg Q4H PRN ORAL FEVER 10/28/18 18:30 11/27/18 18:29 Albuterol/ Ipratropium (Albuterol/ Ipratropium) 3 ml Q4H PRN HHN Shortness of Breath 11/02/18 10:30 11/07/18 10:29 Amikacin Protocol (Amikacin pharmacy to dose) 1 ea DAILY PRN MISC Per rx protocol 11/01/18 18:15 12/01/18 18:14 Amikacin Sulfate 850 mg/Sodium Chloride 113.4 ml @ 113.4 mls/ hr Q36H IV 11/03/18 08:00 11/10/18 07:59 Chlorhexidine Gluconate (Jasmin-Hex 2%) 1 applic DAILY@2000 TOPIC 10/29/18 20:00 11/28/18 19:59 11/01/18 20:09 Dextrose (Dextrose 50%) 25 ml Q30M PRN IV Hypoglycemia 10/30/18 15:00 11/29/18 14:53 Dextrose (Dextrose 50%) 50 ml Q30M PRN IV hypoglycemia 10/30/18 15:00 11/29/18 14:59 Heparin Sodium (Porcine) (Heparin 5000 units/ml) 5,000 units EVERY 12 HOURS SUBQ 10/28/18 21:00 11/27/18 20:59 11/02/18 09:52 Levothyroxine Sodium (Synthroid) 75 mcg DAILY GT 11/03/18 09:00 12/03/18 08:59 Lorazepam (Ativan 2mg/ml 1ml) 2 mg Q2H PRN IV For Anxiety 11/02/18 10:30 11/09/18 10:29 Morphine Sulfate (Morphine Sulfate) 4 mg Q4H PRN IVP Severe Pain (Pain Scale 7-10) 11/02/18 10:30 11/09/18 10:29 Ondansetron HCl (Zofran) 4 mg Q6H PRN IVP Nausea & Vomiting 10/28/18 18:30 11/27/18 18:29 Pantoprazole (Protonix) 40 mg DAILY IV 10/29/18 09:00 11/28/18 08:59 11/02/18 09:50 Polyethylene Glycol (Miralax) 17 gm DAILYPRN PRN ORAL Constipation 10/28/18 18:30 11/27/18 18:29 Sucralfate (Carafate) 1 gm FOUR TIMES A DAY GT 10/28/18 21:00 11/27/18 20:59 11/02/18 09:50 Lisy Lai M.D. Nov 02, 2018 10:42
[2018-11-02 12:00] VITALS: BP 144/82
--- NOTE | 2018-11-02 12:19 | NUR ---
CASE MANAGEMENT: REVIEW SI: SEPSIS . ANEMIA T 97.7 HR 75 RR 20 BP 97% MECH VENT FIO2 35 H/H 8.4/26.5 BUN 29 IS: AMIKACIN IV Q36HR PROTONIX IV QD CARAFATE GT QID STEP DOWN UNIT STATUS DCP: PATIENT IS FROM [facility]
--- NOTE | 2018-11-02 15:06 | Nephrology Progress Note ---
Assessment/Plan Problem List: (1) Acute renal failure (2) Sepsis (3) Severe protein-calorie malnutrition (4) Hypothyroidism Assessment (1) Tracheostomy dependence Respiratory failure, [id number]-bvcesnm (2) Sepsis , Leukocytosis (3) GI bleed (4) Acute renal failure, Cr 1.4 (5) HypoThyroidism (6) Alzheimer's (7) Severe protein-calorie malnutrition (8) Feeding by G-tube Plan Antibiotics K supplement pulm support monitor renal parameters Avoid Nephrotoxics check H&H Subjective ROS Limited/Unobtainable: Yes Objective Objective Last 24 Hour Vital Signs Date Time Temp Pulse Resp B/P (MAP) Pulse Ox O2 Delivery O2 Flow Rate FiO2 11/02/18 13:25 90 19 35 11/02/18 11:00 86 21 35 11/02/18 09:25 82 19 35 11/02/18 08:00 Mechanical Ventilator 11/02/18 08:00 86 11/02/18 08:00 35 11/02/18 07:03 87 18 35 11/02/18 05:08 84 15 35 11/02/18 04:00 Mechanical Ventilator 11/02/18 04:00 97.7 75 20 122/80 (94) 97 75 11/02/18 04:00 73 11/02/18 04:00 35 11/02/18 02:59 77 19 35 11/02/18 00:40 86 17 35 11/02/18 00:00 Mechanical Ventilator 11/02/18 00:00 75 11/02/18 00:00 98.1 68 28 108/52 (70) 97 11/01/18 23:12 84 21 35 11/01/18 20:56 78 16 35 11/01/18 20:00 Mechanical Ventilator 11/01/18 20:00 98.1 80 16 120/70 (87) 100 11/01/18 20:00 35 11/01/18 20:00 84 11/01/18 18:41 81 15 35 11/01/18 17:54 70 12 35 11/01/18 16:00 35 11/01/18 16:00 Mechanical Ventilator 11/01/18 16:00 97.9 83 18 141/63 (89) 100 11/01/18 16:00 73 11/01/18 15:35 87 15 35 Intake and Output 11/01/18 11/02/18 19:00 07:00 Intake Total 725 ml 918.4 ml Output Total 400 ml 350 ml Balance 325 ml 568.4 ml Intake Free Water 100 ml IV Total 175 ml 113.4 ml Tube Feeding 400 ml 705 ml Other 150 ml Output Urine Total 400 ml 350 ml # Bowel Movements 2 3 Laboratory Tests 11/02/18 04:00: White Blood Count 9.5, Red Blood Count 3.11L, Hemoglobin 8.4L, Hematocrit 26.5L , Mean Corpuscular Volume 85, Mean Corpuscular Hemoglobin 27.0, Mean Corpuscular Hemoglobin Concent 31.6L, Red Cell Distribution Width 14.5, Platelet Count 338, Mean Platelet Volume 6.3L, Neutrophils (%) (Auto) 69.3, Lymphocytes (%) (Auto) 15.8L, Monocytes (%) (Auto) 10.7H, Eosinophils (%) (Auto ) 3.9H, Basophils (%) (Auto) 0.3, Erythrocyte Sedimentation Rate 86H, Sodium Level 141, Potassium Level 4.2, Chloride Level 107, Carbon Dioxide Level 27, Anion Gap 7, Blood Urea Nitrogen 29H, Creatinine 1.2, Estimat Glomerular Filtration Rate 59.9, Glucose Level 110H, Calcium Level 9.6, Phosphorus Level 2.8, Magnesium Level 2.1, Total Bilirubin 0.2, Aspartate Amino Transf (AST/SGOT ) 17, Alanine Aminotransferase (ALT/SGPT) 22, Alkaline Phosphatase 125H, C- Reactive Protein, Quantitative 6.9H, Total Protein 7.6, Albumin 2.6L, Globulin 5.0, Albumin/Globulin Ratio 0.5L 11/02/18 08:00: Random Amikacin Level 13.4 Height (Feet): 5 Height (Inches): 3.00 Weight (Pounds): 128 General Appearance: no apparent distress Cardiovascular: tachycardia Respiratory/Chest: decreased breath sounds Abdomen: soft Objective no change Sav Salvador MD Nov 02, 2018 15:06
[2018-11-02 16:00] VITALS: BP 118/67
--- NOTE | 2018-11-02 18:58 | NUR ---
RESPIRATORY NOTE: PT. RECEIVED STABLE ON SIMV VT 600, RR 8, FIO2 35%, PEEP +5, PS 8. ALARMS ON AND AUDIBLE. VENT CIRCUIT SECURE AND OUT OF THE WAY. NO SIGN OF RESPIRATORY DISTRESS NOTED AT THIS TIME. WILL CONTINUE TO MONITOR.
--- NOTE | 2018-11-02 19:25 | NUR ---
NURSE NOTES: Received report from Marge Reyes Rn, pt. in bed obtunded, pt. opens eyes spontaneously, - non-verbal, no signs or symptoms of acute cardiac or respiratory distress noted, cardiac monitoring on, bed in lowest position and call light within easy reach, bed alarm on, side rails up x's 3 and safety brakes engaged, pt. appears to be tolerating current vent settings well - Simv 8, TV 600, Fio2 35% and Peep 8 and pressure support 8- no respiratory distress noted, Jevity 1.2 running via G tube at 65cc/hr- no residual noted- Patient is at goal. Pt. has condom cath on and is intact and draining to gravity, pt. is clean and dry, PRASHANTH PICC - is intact and patent- TKO, comfort measures provided, safety measures continued, will continue with plan of care.
--- NOTE | 2018-11-02 19:25 | NUR ---
HAND-OFF: Report given to ODILIA Bose. Patient VS stable at this time with no sign of acute distress.
[2018-11-02 20:00] VITALS: BP 120/66
[2018-11-02] MEDS: Dyna-Hex 2% Top Sol 2oz TOPIC SCH (20:16)
[2018-11-03] VITALS: BP 90/62
[2018-11-03 04:00] VITALS: BP 126/80
--- NOTE | 2018-11-03 04:49 | NUR ---
RESPIRATORY NOTE: PT. REMAINED STABLE ON CMV WITH CURRENT SETTINGS. SXN'D PRN WITHOUT ADVERSE REACTIONS. VENT CIRCUIT SECURE AND OUT OF THE WAY. NO S/S OF RESPIRATORY DISTRESS NOTED AT THIS TIME.
[2018-11-03 04:52] LABS: BASOPHILS % (AUTO) 0.6 % (0.0-2.0); EOSINOPHILS % (AUTO) 2.7 % (0.0-3.0); HEMATOCRIT 27.2 % (42.0-52.0); HEMOGLOBIN 8.6 G/DL (14.2-18.0); LYMPHOCYTES % (AUTO) 16.6 % (20.0-45.0); MEAN CORPUSCULAR VOLUME 85 FL (80-99); MONOCYTES % (AUTO) 13.5 % (1.0-10.0); NEUTROPHILS % (AUTO) 66.6 % (45.0-75.0); PLATELET COUNT 338 K/UL (150-450); RED BLOOD COUNT 3.19 M/UL (4.70-6.10); RED CELL DISTRIBUTION WIDTH 14.7 % (11.6-14.8); WHITE BLOOD COUNT 11.7 K/UL (4.8-10.8)
[2018-11-03 04:59] LABS: ANION GAP 5 mmol/L (5-15); BLOOD UREA NITROGEN 32 mg/dL (7-18); CALCIUM 9.5 MG/DL (8.5-10.1); CARBON DIOXIDE 29 MMOL/L (21-32); CHLORIDE 107 MMOL/L (98-107); CREATININE 1.2 MG/DL (0.55-1.30); POTASSIUM 4.4 MMOL/L (3.5-5.1); SODIUM 141 MMOL/L (136-145)
--- NOTE | 2018-11-03 07:03 | NUR ---
HAND-OFF: Report given to Marge Walker, pt. remains stable and no signs of distress noted. Addendum: 11/03/18 at 0713 by ANDREA BELLE RN RN nurse aware to f/u on WBC's trending up.
--- NOTE | 2018-11-03 07:04 | NUR ---
NURSE NOTES: received patient from ODILIA Haq. Patient VS stable at this time with no sign of acute distress. Patient showing sinus tahcycardia on the monitor at 103 at this time. Patient obtunded at this time. Patient opens eyes but does not track. Patient has trach to ventilator with setting of SIMV pressure support 8, TV 600, FiO2 35%, and PEEP 8. Patient has a G tube that is patent and asymptomatic at this time and us running Jevity 1.2 at 65mL/hr at this time. Patient has a condom catheter that is patent and asymptomatic at this time. Patient has a right foot dried scab that is covered with optifoam. Patient has a right upper arm PICC that is patent and asymptomatic at this time. Patient bed in low position with bed alarm on and call light in reach at this time.
--- NOTE | 2018-11-03 07:57 | General Progress Note ---
Assessment/Plan Problem List: (1) Acute renal failure ICD Codes: N17.9 - Acute kidney failure, unspecified SNOMED: 47296204 (2) Sepsis ICD Codes: A41.9 - Sepsis, unspecified organism SNOMED: 54744660 Qualifiers: Qualified Codes: A41.9 - Sepsis, unspecified organism (3) Severe protein-calorie malnutrition ICD Codes: E43 - Unspecified severe protein-calorie malnutrition SNOMED: 057749894 (4) Feeding by G-tube ICD Codes: Z93.1 - Gastrostomy status SNOMED: 871677944, 575331511 (5) Respiratory failure, [id number] ICD Codes: J96.20 - Respiratory failure, qwfkj-eh-epjuezk SNOMED: 51816931 (6) UTI (urinary tract infection) ICD Codes: N39.0 - Urinary tract infection, site not specified SNOMED: 82453831 Qualifiers: Qualified Codes: N39.0 - Urinary tract infection, site not specified (7) Alzheimer's dementia ICD Codes: G30.9 - Alzheimer's disease, unspecified SNOMED: 92278868 (8) Anemia ICD Codes: D64.9 - Anemia, unspecified SNOMED: 645021345 Status: unchanged Assessment/Plan vent abx cbc bmp am dc plan if clear Subjective Constitutional: Reports: weakness Allergies: Coded Allergies: NO KNOWN DRUG ALLERGIES (Verified Allergy, Unknown, 09/11/16) All Systems: reviewed and negative except above Subjective trach vent altered Objective Last 24 Hour Vital Signs Date Time Temp Pulse Resp B/P (MAP) Pulse Ox O2 Delivery O2 Flow Rate FiO2 11/03/18 06:43 99 24 35 11/03/18 04:49 88 22 35 11/03/18 04:00 Mechanical Ventilator 11/03/18 04:00 90 11/03/18 04:00 98.1 90 22 126/80 (95) 99 112 11/03/18 04:00 35 11/03/18 03:00 90 22 35 11/03/18 00:51 96 24 35 11/03/18 00:00 98.4 94 23 90/62 (71) 97 112 11/03/18 00:00 35 11/03/18 00:00 Mechanical Ventilator 11/03/18 00:00 98 11/02/18 22:38 97 28 35 11/02/18 21:47 100 26 35 11/02/18 20:00 Mechanical Ventilator 11/02/18 20:00 35 11/02/18 20:00 98.9 101 24 120/66 (84) 98 112 11/02/18 20:00 100 11/02/18 18:58 98 22 35 11/02/18 17:20 94 22 35 11/02/18 16:00 Mechanical Ventilator 11/02/18 16:00 99.3 112 24 118/67 (84) 99 112 11/02/18 16:00 84 11/02/18 16:00 35 11/02/18 15:20 87 25 35 11/02/18 13:25 90 19 35 11/02/18 12:00 35 11/02/18 12:00 Mechanical Ventilator 11/02/18 12:00 87 11/02/18 12:00 98.6 89 18 144/82 (102) 98 89 11/02/18 11:00 86 21 35 11/02/18 09:25 82 19 35 11/02/18 08:00 Mechanical Ventilator 11/02/18 08:00 98.4 89 18 120/80 (93) 98 89 11/02/18 08:00 86 11/02/18 08:00 35 Intake and Output 11/02/18 11/03/18 19:00 07:00 Intake Total 960 ml 880 ml Output Total 700 ml 250 ml Balance 260 ml 630 ml Intake Free Water 180 ml 100 ml Tube Feeding 780 ml 780 ml Output Urine Total 700 ml 250 ml # Bowel Movements 2 1 Laboratory Tests 11/02/18 08:00: Random Amikacin Level 13.4 11/03/18 04:00: White Blood Count 11.7H, Red Blood Count 3.19L, Hemoglobin 8.6L, Hematocrit 27.2L, Mean Corpuscular Volume 85, Mean Corpuscular Hemoglobin 27.1, Mean Corpuscular Hemoglobin Concent 31.8L, Red Cell Distribution Width 14.7, Platelet Count 338, Mean Platelet Volume 6.3L, Neutrophils (%) (Auto) 66.6, Lymphocytes (%) (Auto) 16.6L, Monocytes (%) (Auto) 13.5H, Eosinophils (%) (Auto ) 2.7, Basophils (%) (Auto) 0.6, Sodium Level 141, Potassium Level 4.4, Chloride Level 107, Carbon Dioxide Level 29, Anion Gap 5, Blood Urea Nitrogen 32H, Creatinine 1.2, Estimat Glomerular Filtration Rate 59.9, Glucose Level 108H , Calcium Level 9.5 Height (Feet): 5 Height (Inches): 3.00 Weight (Pounds): 128 General Appearance: lethargic EENT: normal ENT inspection Neck: normal alignment Cardiovascular: normal peripheral pulses, normal rate, regular rhythm Respiratory/Chest: chest wall non-tender, lungs clear, normal breath sounds Abdomen: normal bowel sounds, non tender, soft Extremities: normal inspection Edema: no edema noted Arm (L), no edema noted Arm (R), no edema noted Leg (L), no edema noted Leg (R), no edema noted Pedal (L), no edema noted Pedal (R), no edema noted Generalized Neurologic: motor weakness Skin: normal pigmentation, warm/dry Gato Viveros DO Nov 03, 2018 07:57
[2018-11-03 08:00] VITALS: BP 118/73
[2018-11-03] MEDS: Amikacin 850 MG in NS 110 ML IV SCH (08:29)
--- NOTE | 2018-11-03 08:30 | Pulmonology Progress Note ---
Assessment/Plan Assessment/Plan ASSESSMENT Sepsis, probably due to UTI Hx of recurrent UTI Respiratory failure, acute on chronic, vent dependent Dysphagia, GT feeding severe protein calorie malnutrition KAYLENE/ARF Hx of C dif colitis Anemia Hypothyroidism Alzheimer dementia PLAN OF CARE LUIS vent support , pulm baseline ABG today and titrate settings as needed fup with CXR in am abx as per ID urine cx negative , blood cx negative, sputum culture grew KPC , E. coli ESBL and Proteus leukocytosis resolved strict aspiration precaution , G-tube feeding , nutr recs implemented in POC TSH elevated , increase levothyroxine dose DVT, GI prophylaxis GI prophylaxis monitor H&H with goal to keep hgb above 7 anemia workup consistent with anemia of chronic disease, status post IV Venofer x1 monitor renal parameters, lytes, correct lytes as needed, creat down to normal increase free water flushes via G tube due to azotemia bowel regimen supportive care case discussed and evaluated by supervising physician Subjective Allergies: Coded Allergies: NO KNOWN DRUG ALLERGIES (Verified Allergy, Unknown, 09/11/16) Subjective mild leuk today, afebrile, ESR still significantly elevated no signs of resp- distress on current settings Objective Last 24 Hour Vital Signs Date Time Temp Pulse Resp B/P (MAP) Pulse Ox O2 Delivery O2 Flow Rate FiO2 11/03/18 08:00 35 11/03/18 08:00 Mechanical Ventilator 11/03/18 06:43 99 24 35 11/03/18 04:49 88 22 35 11/03/18 04:00 Mechanical Ventilator 11/03/18 04:00 90 11/03/18 04:00 98.1 90 22 126/80 (95) 99 112 11/03/18 04:00 35 11/03/18 03:00 90 22 35 11/03/18 00:51 96 24 35 11/03/18 00:00 98.4 94 23 90/62 (71) 97 112 11/03/18 00:00 35 11/03/18 00:00 Mechanical Ventilator 11/03/18 00:00 98 11/02/18 22:38 97 28 35 11/02/18 21:47 100 26 35 11/02/18 20:00 Mechanical Ventilator 11/02/18 20:00 35 11/02/18 20:00 98.9 101 24 120/66 (84) 98 112 11/02/18 20:00 100 11/02/18 18:58 98 22 35 11/02/18 17:20 94 22 35 11/02/18 16:00 Mechanical Ventilator 11/02/18 16:00 99.3 112 24 118/67 (84) 99 112 11/02/18 16:00 84 11/02/18 16:00 35 11/02/18 15:20 87 25 35 11/02/18 13:25 90 19 35 11/02/18 12:00 35 11/02/18 12:00 Mechanical Ventilator 11/02/18 12:00 87 11/02/18 12:00 98.6 89 18 144/82 (102) 98 89 11/02/18 11:00 86 21 35 11/02/18 09:25 82 19 35 Intake and Output 11/02/18 11/03/18 18:59 06:59 Intake Total 960 ml 880 ml Output Total 700 ml 250 ml Balance 260 ml 630 ml Intake Free Water 180 ml 100 ml Tube Feeding 780 ml 780 ml Output Urine Total 700 ml 250 ml # Bowel Movements 2 1 Objective General Appearance: no acute distress, bedridden vent dependent male on vent SIMV 600-35%-8 PEEP 5 HEENT: normocephalic, atraumatic, anicteric, status post trach - Portex#8, secretions moderate, yellow, thin Respiratory/Chest: no respiratory distress, few isolated rhonchi Cardiovascular: normal peripheral pulses, normal rate, regular rhythm - SR on tele , no JVD Abdomen: normal bowel sounds, soft, non tender, other - G tube Extremities: no edema, pedal pulses normal, spastic LE Neurologic/Psychiatric: abnormal gait - bedridden , awake, not responsive to verbal stimuli Musculoskeletal: atrophy - BLE Laboratory Tests 11/03/18 04:00: White Blood Count 11.7H, Red Blood Count 3.19L, Hemoglobin 8.6L, Hematocrit 27.2L, Mean Corpuscular Volume 85, Mean Corpuscular Hemoglobin 27.1, Mean Corpuscular Hemoglobin Concent 31.8L, Red Cell Distribution Width 14.7, Platelet Count 338, Mean Platelet Volume 6.3L, Neutrophils (%) (Auto) 66.6, Lymphocytes (%) (Auto) 16.6L, Monocytes (%) (Auto) 13.5H, Eosinophils (%) (Auto ) 2.7, Basophils (%) (Auto) 0.6, Sodium Level 141, Potassium Level 4.4, Chloride Level 107, Carbon Dioxide Level 29, Anion Gap 5, Blood Urea Nitrogen 32H, Creatinine 1.2, Estimat Glomerular Filtration Rate 59.9, Glucose Level 108H , Calcium Level 9.5 Current Medications Medications (Trade) Dose Ordered Sig/Wanda Route PRN Reason Start Time Stop Time Status Last Admin Dose Admin Acetaminophen (Tylenol) 650 mg Q4H PRN ORAL FEVER 10/28/18 18:30 11/27/18 18:29 Albuterol/ Ipratropium (Albuterol/ Ipratropium) 3 ml Q4H PRN HHN Shortness of Breath 11/02/18 10:30 11/07/18 10:29 Amikacin Protocol (Amikacin pharmacy to dose) 1 ea DAILY PRN MISC Per rx protocol 11/01/18 18:15 12/01/18 18:14 Amikacin Sulfate 850 mg/Sodium Chloride 113.4 ml @ 113.4 mls/ hr Q36H IV 11/03/18 08:00 11/10/18 07:59 Chlorhexidine Gluconate (Jasmin-Hex 2%) 1 applic DAILY@2000 TOPIC 10/29/18 20:00 11/28/18 19:59 11/02/18 20:16 Dextrose (Dextrose 50%) 25 ml Q30M PRN IV Hypoglycemia 10/30/18 15:00 11/29/18 14:53 Dextrose (Dextrose 50%) 50 ml Q30M PRN IV hypoglycemia 10/30/18 15:00 11/29/18 14:59 Heparin Sodium (Porcine) (Heparin 5000 units/ml) 5,000 units EVERY 12 HOURS SUBQ 10/28/18 21:00 11/27/18 20:59 11/02/18 20:18 Levothyroxine Sodium (Synthroid) 75 mcg DAILY GT 11/03/18 09:00 12/03/18 08:59 Lorazepam (Ativan 2mg/ml 1ml) 2 mg Q2H PRN IV For Anxiety 11/02/18 10:30 11/09/18 10:29 Morphine Sulfate (Morphine Sulfate) 4 mg Q4H PRN IVP Severe Pain (Pain Scale 7-10) 11/02/18 10:30 11/09/18 10:29 Ondansetron HCl (Zofran) 4 mg Q6H PRN IVP Nausea & Vomiting 10/28/18 18:30 11/27/18 18:29 Pantoprazole (Protonix) 40 mg DAILY IV 10/29/18 09:00 11/28/18 08:59 11/02/18 09:50 Polyethylene Glycol (Miralax) 17 gm DAILYPRN PRN ORAL Constipation 10/28/18 18:30 11/27/18 18:29 Sucralfate (Carafate) 1 gm FOUR TIMES A DAY GT 10/28/18 21:00 11/27/18 20:59 11/02/18 20:16 Amina Garcia [employer] Nov 03, 2018 08:30
[2018-11-03] MEDS: Pantoprazole Inj IV SCH (09:44)
[2018-11-03] MEDS: Sucralfate 1gm tab GT SCH ×4 (09:44→20:26)
[2018-11-03] MEDS: Heparin 5000 units/ml inj SUBQ SCH ×2 (09:46→20:27)
--- NOTE | 2018-11-03 10:29 | NUR ---
NURSE NOTES: Left message for Dr Lai regarding WBC of 11.7 today.
[2018-11-03 12:00] VITALS: BP 142/74
--- NOTE | 2018-11-03 13:47 | NUR ---
CASE MANAGEMENT: REVIEW SI: SEPSIS . ANEMIA T 98.4 HR 102 RR 22 BP 142/74 SAT 99% MECH VENT FIO2 35 WBC 11.7 H/H 8.6/27.2 BUN 32 IS: AMIKACIN IV Q36HR PROTONIX IV QD CARAFATE GT QID STEP DOWN UNIT STATUS DCP: PATIENT IS FROM [facility]
[2018-11-03 16:00] VITALS: BP 120/78
--- NOTE | 2018-11-03 18:07 | Nephrology Progress Note ---
Assessment/Plan Problem List: (1) Acute renal failure (2) Sepsis (3) Severe protein-calorie malnutrition (4) Hypothyroidism Assessment (1) Tracheostomy dependence Respiratory failure, [id number] (2) Sepsis , Leukocytosis (3) GI bleed (4) Acute renal failure, Cr 1.4 (5) HypoThyroidism (6) Alzheimer's (7) Severe protein-calorie malnutrition (8) Feeding by G-tube Plan Antibiotics K supplement pulm support monitor renal parameters Avoid Nephrotoxics check H&H Subjective ROS Limited/Unobtainable: Yes Objective Objective Last 24 Hour Vital Signs Date Time Temp Pulse Resp B/P (MAP) Pulse Ox O2 Delivery O2 Flow Rate FiO2 11/03/18 17:00 93 21 35 11/03/18 16:00 35 11/03/18 16:00 98.4 85 20 120/78 (92) 99 85 11/03/18 16:00 Mechanical Ventilator 11/03/18 16:00 87 11/03/18 15:03 97 20 35 11/03/18 12:36 90 20 35 11/03/18 12:00 90 11/03/18 12:00 35 11/03/18 12:00 98.4 92 22 142/74 (96) 100 92 11/03/18 12:00 Mechanical Ventilator 11/03/18 11:00 97 22 35 11/03/18 08:58 93 24 35 11/03/18 08:00 96 11/03/18 08:00 35 11/03/18 08:00 98.8 102 24 118/73 (88) 99 102 11/03/18 08:00 Mechanical Ventilator 11/03/18 06:43 99 24 35 11/03/18 04:49 88 22 35 11/03/18 04:00 Mechanical Ventilator 11/03/18 04:00 90 11/03/18 04:00 98.1 90 22 126/80 (95) 99 112 11/03/18 04:00 35 11/03/18 03:00 90 22 35 11/03/18 00:51 96 24 35 11/03/18 00:00 98.4 94 23 90/62 (71) 97 112 11/03/18 00:00 35 11/03/18 00:00 Mechanical Ventilator 11/03/18 00:00 98 11/02/18 22:38 97 28 35 11/02/18 21:47 100 26 35 11/02/18 20:00 Mechanical Ventilator 11/02/18 20:00 35 11/02/18 20:00 98.9 101 24 120/66 (84) 98 112 11/02/18 20:00 100 11/02/18 18:58 98 22 35 Intake and Output 11/02/18 11/03/18 19:00 07:00 Intake Total 960 ml 880 ml Output Total 700 ml 250 ml Balance 260 ml 630 ml Intake Free Water 180 ml 100 ml Tube Feeding 780 ml 780 ml Output Urine Total 700 ml 250 ml # Bowel Movements 2 1 Laboratory Tests 11/03/18 04:00: White Blood Count 11.7H, Red Blood Count 3.19L, Hemoglobin 8.6L, Hematocrit 27.2L, Mean Corpuscular Volume 85, Mean Corpuscular Hemoglobin 27.1, Mean Corpuscular Hemoglobin Concent 31.8L, Red Cell Distribution Width 14.7, Platelet Count 338, Mean Platelet Volume 6.3L, Neutrophils (%) (Auto) 66.6, Lymphocytes (%) (Auto) 16.6L, Monocytes (%) (Auto) 13.5H, Eosinophils (%) (Auto ) 2.7, Basophils (%) (Auto) 0.6, Sodium Level 141, Potassium Level 4.4, Chloride Level 107, Carbon Dioxide Level 29, Anion Gap 5, Blood Urea Nitrogen 32H, Creatinine 1.2, Estimat Glomerular Filtration Rate 59.9, Glucose Level 108H , Calcium Level 9.5 11/03/18 11:12: Arterial Blood pH 7.430, Arterial Blood Partial Pressure CO2 33.3L, Arterial Blood Partial Pressure O2 55.6L, Arterial Blood HCO3 21.6L, Arterial Blood Oxygen Saturation 90.4L, Arterial Blood Base Excess -2.3L, Ger Test Positive Height (Feet): 5 Height (Inches): 3.00 Weight (Pounds): 128 General Appearance: no apparent distress Objective no change Sav Salvador MD Nov 03, 2018 18:07
--- NOTE | 2018-11-03 19:00 | NUR ---
HAND-OFF: Report given to ODILIA Haq. Patient VS stable at this time with no sign of acute distress.
--- NOTE | 2018-11-03 19:15 | NUR ---
NURSE NOTES: Received report from Marge Reyes Rn, pt. in bed obtunded, pt. opens eyes spontaneously, - non-verbal, no signs or symptoms of acute cardiac or respiratory distress noted during assessment, cardiac monitoring on, bed in lowest position and call light within easy reach, bed alarm on, side rails up x's 3 and safety brakes engaged, pt. appears to be tolerating current vent settings well - Simv 8, TV 600, Fio2 35% and Peep 8 and pressure support 8- no respiratory distress noted, Jevity 1.2 running via G tube at 65cc/hr- no residual noted- Patient is at goal. Pt. has condom cath on and is intact and draining to gravity, pt. is clean and dry, comfort measures provided, PRASHANTH PICC - is intact and patent- TKO, bed locked, safety measures continued, will continue with plan of care.
--- NOTE | 2018-11-03 19:52 | NUR ---
RESPIRATORY NOTE: Received pt. on 840 vent. Vent settings are: SIMV mode, rate of 8, Vt 600, FI02 35, PEEP +5. No respiratory distress noted, pt. Sp02 @ 100%. Ambu bag @ BS. Vent plugged on red outlet. Will continue to monitor pt.
[2018-11-03 20:00] VITALS: BP 130/74
[2018-11-03] MEDS: Dyna-Hex 2% Top Sol 2oz TOPIC SCH (20:26)
[2018-11-04] VITALS: BP 124/72
[2018-11-04 04:00] VITALS: BP 108/68
[2018-11-04 05:11] LABS: ANION GAP 5 mmol/L (5-15); BLOOD UREA NITROGEN 31 mg/dL (7-18); CALCIUM 9.4 MG/DL (8.5-10.1); CARBON DIOXIDE 28 MMOL/L (21-32); CHLORIDE 108 MMOL/L (98-107); CREATININE 1.1 MG/DL (0.55-1.30); POTASSIUM 4.2 MMOL/L (3.5-5.1); SODIUM 141 MMOL/L (136-145)
[2018-11-04 05:13] LABS: BASOPHILS % (AUTO) 0.9 % (0.0-2.0); EOSINOPHILS % (AUTO) 3.4 % (0.0-3.0); HEMATOCRIT 26.4 % (42.0-52.0); HEMOGLOBIN 8.2 G/DL (14.2-18.0); LYMPHOCYTES % (AUTO) 18.7 % (20.0-45.0); MEAN CORPUSCULAR VOLUME 87 FL (80-99); MONOCYTES % (AUTO) 11.8 % (1.0-10.0); NEUTROPHILS % (AUTO) 65.3 % (45.0-75.0); PLATELET COUNT 324 K/UL (150-450); RED BLOOD COUNT 3.04 M/UL (4.70-6.10); RED CELL DISTRIBUTION WIDTH 14.8 % (11.6-14.8); WHITE BLOOD COUNT 12.2 K/UL (4.8-10.8)
--- NOTE | 2018-11-04 06:00 | NUR ---
NURSE NOTES: left msg with Fina at exchange for DR. Lai regarding WBCs trending up - now WBCs 12.2- awaiting for call back from doctor.
--- NOTE | 2018-11-04 07:11 | NUR ---
HAND-OFF: Report given to María HARTLEY. pt. remains stable and no signs of distress noted. Aware to f/u on WBC's trending up- awaiting for doctor to call back.
--- NOTE | 2018-11-04 07:20 | NUR ---
NURSE NOTES: Received report from ODILIA Haq. Patient is resting in bed, in stable condition. No s/sx of SOB, breathing is even and unlabored, Vent setting noted as ordered. Observed no presence of pain or discomfort at this time. Bed is in lowest position, brakes engaged. Call light is kept within easy reach. Will continue to monitor patient.
[2018-11-04 08:00] VITALS: BP 137/62
[2018-11-04] MEDS: Pantoprazole Inj IV SCH (09:07)
[2018-11-04] MEDS: Sucralfate 1gm tab GT SCH ×4 (09:07→20:23)
[2018-11-04] MEDS: Heparin 5000 units/ml inj SUBQ SCH ×2 (09:08→20:25)
--- NOTE | 2018-11-04 10:29 | NUR ---
RADIOLOGY DEPT CHEST X-RAY DONE.-P.DYE
--- NOTE | 2018-11-04 11:15 | Pulmonolgy Critical Care Note ---
Critical Care - Asmt/Plan Problems: (1) Sepsis (2) Respiratory failure, [id number] (3) Hypothyroidism (4) MDR Acinetobacter baumannii infection (5) Alzheimer's dementia (6) Severe protein-calorie malnutrition (7) Feeding by G-tube Respiratory: monitor respiratory rate, CXR Cardiac: start pressors Renal: F/U I&O, keep IV fluid, check electrolytes Infectious Disease: check cultures, continue antibiotics Gastrointestinal: continue feedings/current rate Endocrine: monitor blood sugar, check HgA1C Hematologic: transfuse if hgb<8.5 Neurologic: PRN Ativan, PRN Morphine, keep patient comfortable Prophylaxis: Protonix, Heparin Notes 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, 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 with: nurses, consultants, manager of case managementintelligence manager - Objective Last 24 Hour Vital Signs Date Time Temp Pulse Resp B/P (MAP) Pulse Ox O2 Delivery O2 Flow Rate FiO2 11/04/18 11:06 84 16 35 11/04/18 09:10 92 15 35 11/04/18 08:00 93 11/04/18 08:00 98.5 95 15 137/62 (87) 100 95 11/04/18 08:00 35 11/04/18 08:00 Mechanical Ventilator 11/04/18 07:02 90 14 35 11/04/18 05:28 100 20 Mechanical Ventilator 35 11/04/18 05:26 88 20 35 11/04/18 04:00 92 11/04/18 04:00 Mechanical Ventilator 11/04/18 04:00 98.2 88 21 108/68 (81) 99 87 11/04/18 04:00 35 11/04/18 03:22 87 16 35 11/04/18 00:33 91 21 35 11/04/18 00:00 98.1 87 24 124/72 (89) 99 87 11/04/18 00:00 87 11/04/18 00:00 Mechanical Ventilator 11/04/18 00:00 35 11/03/18 23:17 92 22 35 11/03/18 21:53 86 21 35 11/03/18 20:00 35 11/03/18 20:00 97.9 88 24 130/74 (92) 99 88 11/03/18 20:00 86 11/03/18 20:00 Mechanical Ventilator 11/03/18 19:49 89 20 35 2/24/19 17:00 93 21 35 11/03/18 16:00 35 11/03/18 16:00 98.4 85 20 120/78 (92) 99 85 11/03/18 16:00 Mechanical Ventilator 11/03/18 16:00 87 11/03/18 15:03 97 20 35 11/03/18 12:36 90 20 35 11/03/18 12:00 90 11/03/18 12:00 35 11/03/18 12:00 98.4 92 22 142/74 (96) 100 92 11/03/18 12:00 Mechanical Ventilator Status: awake Condition: critical Neck: full ROM Heart: HR/BP stable Abdomen: soft, non-tender, feeding tube Extremities: edema Decubiti: location Critical Care - Subjective ROS Limited/Unobtainable: Yes Condition: critical EKG Rhythm: Sinus Rhythm FI02: 35 Vent Support Breath Rate: 8 Vent Support Mode: IMV/SIMV Vent Tidal Volume: 600 Sputum Amount: Large PEEP: 5.0 PIP: 17 Tube Feeding Amount: 65 I&O: Intake and Output 11/03/18 11/04/18 19:00 07:00 Intake Total 933.4 ml 1070 ml Output Total 500 ml 250 ml Balance 433.4 ml 820 ml Intake Free Water 300 ml 225 ml IV Total 113.4 ml Tube Feeding 520 ml 845 ml Output Urine Total 500 ml 250 ml # Bowel Movements 2 3 CXR: no change Labs: Laboratory Tests Test 11/04/18 04:00 White Blood Count 12.2 K/UL (4.8-10.8) H Red Blood Count 3.04 M/UL (4.70-6.10) L Hemoglobin 8.2 G/DL (14.2-18.0) L Hematocrit 26.4 % (42.0-52.0) L Mean Corpuscular Volume 87 FL (80-99) Mean Corpuscular Hemoglobin 26.9 PG (27.0-31.0) L Mean Corpuscular Hemoglobin Concent 30.9 G/DL (32.0-36.0) L Red Cell Distribution Width 14.8 % (11.6-14.8) Platelet Count 324 K/UL (150-450) Mean Platelet Volume 6.4 FL (6.5-10.1) L Neutrophils (%) (Auto) 65.3 % (45.0-75.0) Lymphocytes (%) (Auto) 18.7 % (20.0-45.0) L Monocytes (%) (Auto) 11.8 % (1.0-10.0) H Eosinophils (%) (Auto) 3.4 % (0.0-3.0) H Basophils (%) (Auto) 0.9 % (0.0-2.0) Sodium Level 141 MMOL/L (136-145) Potassium Level 4.2 MMOL/L (3.5-5.1) Chloride Level 108 MMOL/L (98-107) H Carbon Dioxide Level 28 MMOL/L (21-32) Anion Gap 5 mmol/L (5-15) Blood Urea Nitrogen 31 mg/dL (7-18) H Creatinine 1.1 MG/DL (0.55-1.30) Estimat Glomerular Filtration Rate > 60 mL/min (>60) Glucose Level 89 MG/DL (74-106) Calcium Level 9.4 MG/DL (8.5-10.1) Huma Keating MD Nov 04, 2018 11:15
[2018-11-04 12:00] VITALS: BP 107/63
--- NOTE | 2018-11-04 12:59 | Nephrology Progress Note ---
Assessment/Plan Problem List: (1) Acute renal failure (2) Sepsis (3) Severe protein-calorie malnutrition (4) Hypothyroidism Assessment (1) Tracheostomy dependence Respiratory failure, [id number] (2) Sepsis , Leukocytosis (3) GI bleed (4) Acute renal failure, Cr 1.4 (5) HypoThyroidism (6) Alzheimer's (7) Severe protein-calorie malnutrition (8) Feeding by G-tube Plan Antibiotics K supplement pulm support monitor renal parameters Avoid Nephrotoxics check H&H Subjective ROS Limited/Unobtainable: Yes Objective Objective Last 24 Hour Vital Signs Date Time Temp Pulse Resp B/P (MAP) Pulse Ox O2 Delivery O2 Flow Rate FiO2 11/04/18 12:38 79 13 35 11/04/18 12:00 35 11/04/18 12:00 98.9 89 17 107/63 (78) 100 89 11/04/18 12:00 Mechanical Ventilator 11/04/18 11:06 84 16 35 11/04/18 09:10 92 15 35 11/04/18 08:00 93 11/04/18 08:00 98.5 95 15 137/62 (87) 100 95 11/04/18 08:00 35 11/04/18 08:00 Mechanical Ventilator 11/04/18 07:02 90 14 35 11/04/18 05:28 100 20 Mechanical Ventilator 35 11/04/18 05:26 88 20 35 11/04/18 04:00 92 11/04/18 04:00 Mechanical Ventilator 11/04/18 04:00 98.2 88 21 108/68 (81) 99 87 11/04/18 04:00 35 11/04/18 03:22 87 16 35 11/04/18 00:33 91 21 35 11/04/18 00:00 98.1 87 24 124/72 (89) 99 87 11/04/18 00:00 87 11/04/18 00:00 Mechanical Ventilator 11/04/18 00:00 35 11/03/18 23:17 92 22 35 11/03/18 21:53 86 21 35 11/03/18 20:00 35 11/03/18 20:00 97.9 88 24 130/74 (92) 99 88 11/03/18 20:00 86 11/03/18 20:00 Mechanical Ventilator 2/24/19 19:49 89 20 35 11/03/18 17:00 93 21 35 11/03/18 16:00 35 11/03/18 16:00 98.4 85 20 120/78 (92) 99 85 11/03/18 16:00 Mechanical Ventilator 11/03/18 16:00 87 11/03/18 15:03 97 20 35 Intake and Output 11/03/18 11/04/18 19:00 07:00 Intake Total 933.4 ml 1070 ml Output Total 500 ml 250 ml Balance 433.4 ml 820 ml Intake Free Water 300 ml 225 ml IV Total 113.4 ml Tube Feeding 520 ml 845 ml Output Urine Total 500 ml 250 ml # Bowel Movements 2 3 Laboratory Tests 11/04/18 04:00: White Blood Count 12.2H, Red Blood Count 3.04L, Hemoglobin 8.2L, Hematocrit 26.4L, Mean Corpuscular Volume 87, Mean Corpuscular Hemoglobin 26.9L, Mean Corpuscular Hemoglobin Concent 30.9L, Red Cell Distribution Width 14.8, Platelet Count 324, Mean Platelet Volume 6.4L, Neutrophils (%) (Auto) 65.3, Lymphocytes (%) (Auto) 18.7L, Monocytes (%) (Auto) 11.8H, Eosinophils (%) (Auto ) 3.4H, Basophils (%) (Auto) 0.9, Sodium Level 141, Potassium Level 4.2, Chloride Level 108H, Carbon Dioxide Level 28, Anion Gap 5, Blood Urea Nitrogen 31H, Creatinine 1.1, Estimat Glomerular Filtration Rate > 60, Glucose Level 89, Calcium Level 9.4 Height (Feet): 5 Height (Inches): 3.00 Weight (Pounds): 128 General Appearance: no apparent distress Objective no change Sav Salvador MD Nov 04, 2018 12:59
--- NOTE | 2018-11-04 13:01 | Infectious Diseases Prog Note ---
Assessment/Plan Assessment/Plan Assessment: Sepsis; improving- ?2ry to UTI -11/01 CXR: There is mild atelectasis at the right lung base. 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 diff Dysphagia s/p G-tube Anemia. CVA/TIA w/ hemiplegia functional quadriplegia chronic encephalopathy CAD CHF Dm2 GIB s/p multiple EGDs in the past hx of severe esophagitis schizoaffective disease alf resident multiple admissions VRE colonization Plan: -Continue Amikacin #4/5 to cover sputum pathogens given leukocytosis -11/01 SP Meropenem #4 -10/29 SP IV Vanco #2, Cefepime #2 and Tigecycline #1 -10/28 SP LEavquin x1 -10/09 SP Ertapenem #5 - 10/04 SP Meropenem #2 -10/03/18 SP IV Vancomycin #2 and Cefepime #2 -08/09/18 SP Bactrim #7 -08/03 SP Vancomycin and Cefepime #3 -08/01/18 SP Ceftriaxone x1 -f/u cx -Monitor CBC/CMP, temperatures -wound care -aspiration precautions -CBC, CMP am -Cdiff if diarrhea Subjective Allergies: Coded Allergies: NO KNOWN DRUG ALLERGIES (Verified Allergy, Unknown, 09/11/16) Subjective afebrile leukocytosis resolved Objective Vital Signs Last 24 Hour Vital Signs Date Time Temp Pulse Resp B/P (MAP) Pulse Ox O2 Delivery O2 Flow Rate FiO2 11/04/18 12:38 79 13 35 11/04/18 12:00 35 11/04/18 12:00 98.9 89 17 107/63 (78) 100 89 11/04/18 12:00 Mechanical Ventilator 11/04/18 11:06 84 16 35 11/04/18 09:10 92 15 35 11/04/18 08:00 93 11/04/18 08:00 98.5 95 15 137/62 (87) 100 95 11/04/18 08:00 35 11/04/18 08:00 Mechanical Ventilator 11/04/18 07:02 90 14 35 11/04/18 05:28 100 20 Mechanical Ventilator 35 11/04/18 05:26 88 20 35 11/04/18 04:00 92 11/04/18 04:00 Mechanical Ventilator 11/04/18 04:00 98.2 88 21 108/68 (81) 99 87 11/04/18 04:00 35 11/04/18 03:22 87 16 35 11/04/18 00:33 91 21 35 11/04/18 00:00 98.1 87 24 124/72 (89) 99 87 11/04/18 00:00 87 11/04/18 00:00 Mechanical Ventilator 11/04/18 00:00 35 11/03/18 23:17 92 22 35 11/03/18 21:53 86 21 35 11/03/18 20:00 35 11/03/18 20:00 97.9 88 24 130/74 (92) 99 88 11/03/18 20:00 86 11/03/18 20:00 Mechanical Ventilator 11/03/18 19:49 89 20 35 11/03/18 17:00 93 21 35 11/03/18 16:00 35 11/03/18 16:00 98.4 85 20 120/78 (92) 99 85 11/03/18 16:00 Mechanical Ventilator 11/03/18 16:00 87 11/03/18 15:03 97 20 35 Height (Feet): 5 Height (Inches): 3.00 Weight (Pounds): 128 Objective Status: awake Condition: critical HEENT: atraumatic Lungs: chest wall tender, rales Heart: HR/BP stable Abdomen: soft, non-tender Extremities: no C/C/E, edema Decubiti: stage Laboratory Tests Test 11/04/18 04:00 White Blood Count 12.2 K/UL (4.8-10.8) H Red Blood Count 3.04 M/UL (4.70-6.10) L Hemoglobin 8.2 G/DL (14.2-18.0) L Hematocrit 26.4 % (42.0-52.0) L Mean Corpuscular Volume 87 FL (80-99) Mean Corpuscular Hemoglobin 26.9 PG (27.0-31.0) L Mean Corpuscular Hemoglobin Concent 30.9 G/DL (32.0-36.0) L Red Cell Distribution Width 14.8 % (11.6-14.8) Platelet Count 324 K/UL (150-450) Mean Platelet Volume 6.4 FL (6.5-10.1) L Neutrophils (%) (Auto) 65.3 % (45.0-75.0) Lymphocytes (%) (Auto) 18.7 % (20.0-45.0) L Monocytes (%) (Auto) 11.8 % (1.0-10.0) H Eosinophils (%) (Auto) 3.4 % (0.0-3.0) H Basophils (%) (Auto) 0.9 % (0.0-2.0) Sodium Level 141 MMOL/L (136-145) Potassium Level 4.2 MMOL/L (3.5-5.1) Chloride Level 108 MMOL/L (98-107) H Carbon Dioxide Level 28 MMOL/L (21-32) Anion Gap 5 mmol/L (5-15) Blood Urea Nitrogen 31 mg/dL (7-18) H Creatinine 1.1 MG/DL (0.55-1.30) Estimat Glomerular Filtration Rate > 60 mL/min (>60) Glucose Level 89 MG/DL (74-106) Calcium Level 9.4 MG/DL (8.5-10.1) Current Medications Medications (Trade) Dose Ordered Sig/Wanda Route PRN Reason Start Time Stop Time Status Last Admin Dose Admin Acetaminophen (Tylenol) 650 mg Q4H PRN ORAL FEVER 10/28/18 18:30 11/27/18 18:29 Albuterol/ Ipratropium (Albuterol/ Ipratropium) 3 ml Q4H PRN HHN Shortness of Breath 11/02/18 10:30 11/07/18 10:29 Amikacin Protocol (Amikacin pharmacy to dose) 1 ea DAILY PRN MISC Per rx protocol 11/01/18 18:15 12/01/18 18:14 Amikacin Sulfate 850 mg/Sodium Chloride 113.4 ml @ 113.4 mls/ hr Q36H IV 11/03/18 08:00 11/10/18 07:59 11/03/18 08:29 Chlorhexidine Gluconate (Jasmin-Hex 2%) 1 applic DAILY@2000 TOPIC 10/29/18 20:00 11/28/18 19:59 11/03/18 20:26 Dextrose (Dextrose 50%) 25 ml Q30M PRN IV Hypoglycemia 10/30/18 15:00 11/29/18 14:53 Dextrose (Dextrose 50%) 50 ml Q30M PRN IV hypoglycemia 10/30/18 15:00 11/29/18 14:59 Heparin Sodium (Porcine) (Heparin 5000 units/ml) 5,000 units EVERY 12 HOURS SUBQ 10/28/18 21:00 11/27/18 20:59 11/04/18 09:08 Levothyroxine Sodium (Synthroid) 75 mcg DAILY GT 11/03/18 09:00 12/03/18 08:59 11/04/18 09:07 Lorazepam (Ativan 2mg/ml 1ml) 2 mg Q2H PRN IV For Anxiety 11/02/18 10:30 11/09/18 10:29 Morphine Sulfate (Morphine Sulfate) 4 mg Q4H PRN IVP Severe Pain (Pain Scale 7-10) 11/02/18 10:30 11/09/18 10:29 Ondansetron HCl (Zofran) 4 mg Q6H PRN IVP Nausea & Vomiting 10/28/18 18:30 11/27/18 18:29 Pantoprazole (Protonix) 40 mg DAILY IV 10/29/18 09:00 11/28/18 08:59 11/04/18 09:07 Polyethylene Glycol (Miralax) 17 gm DAILYPRN PRN ORAL Constipation 10/28/18 18:30 11/27/18 18:29 Sucralfate (Carafate) 1 gm FOUR TIMES A DAY GT 10/28/18 21:00 11/27/18 20:59 11/04/18 09:07 Lisy Lai M.D. Nov 04, 2018 13:01
--- NOTE | 2018-11-04 13:06 | Diagnostic Imaging Report ---
Indication: Dyspnea Comparison: 11/01/2018 A single view chest radiograph was obtained. Findings: Hazy density at the right lung base demonstrated unchanged. This is probably atelectasis. Remainder of the lungs are essentially clear. Heart size is normal. PICC line is present and tracheostomy noted unchanged. IMPRESSION: No change from the prior exam.
--- NOTE | 2018-11-04 14:03 | General Progress Note ---
Assessment/Plan Problem List: (1) Acute renal failure ICD Codes: N17.9 - Acute kidney failure, unspecified SNOMED: 21292859 (2) Sepsis ICD Codes: A41.9 - Sepsis, unspecified organism SNOMED: 23558160 Qualifiers: Qualified Codes: A41.9 - Sepsis, unspecified organism (3) Severe protein-calorie malnutrition ICD Codes: E43 - Unspecified severe protein-calorie malnutrition SNOMED: 771465624 (4) Feeding by G-tube ICD Codes: Z93.1 - Gastrostomy status SNOMED: 451072540, 942047187 (5) Respiratory failure, [id number] ICD Codes: J96.20 - Respiratory failure, [id number] SNOMED: 53475685 (6) UTI (urinary tract infection) ICD Codes: N39.0 - Urinary tract infection, site not specified SNOMED: 61753236 Qualifiers: Qualified Codes: N39.0 - Urinary tract infection, site not specified (7) Alzheimer's dementia ICD Codes: G30.9 - Alzheimer's disease, unspecified SNOMED: 88725179 (8) Anemia ICD Codes: D64.9 - Anemia, unspecified SNOMED: 335720469 Status: unchanged Assessment/Plan vent abx cbc bmp am dc plan if clear Subjective Constitutional: Reports: weakness Allergies: Coded Allergies: NO KNOWN DRUG ALLERGIES (Verified Allergy, Unknown, 09/11/16) All Systems: reviewed and negative except above Subjective trach vent altered Objective Last 24 Hour Vital Signs Date Time Temp Pulse Resp B/P (MAP) Pulse Ox O2 Delivery O2 Flow Rate FiO2 11/04/18 12:38 79 13 35 11/04/18 12:00 35 11/04/18 12:00 98.9 89 17 107/63 (78) 100 89 11/04/18 12:00 81 11/04/18 12:00 Mechanical Ventilator 11/04/18 11:06 84 16 35 11/04/18 09:10 92 15 35 11/04/18 08:00 93 11/04/18 08:00 98.5 95 15 137/62 (87) 100 95 11/04/18 08:00 35 11/04/18 08:00 Mechanical Ventilator 11/04/18 07:02 90 14 35 11/04/18 05:28 100 20 Mechanical Ventilator 35 11/04/18 05:26 88 20 35 11/04/18 04:00 92 11/04/18 04:00 Mechanical Ventilator 11/04/18 04:00 98.2 88 21 108/68 (81) 99 87 11/04/18 04:00 35 11/04/18 03:22 87 16 35 11/04/18 00:33 91 21 35 11/04/18 00:00 98.1 87 24 124/72 (89) 99 87 11/04/18 00:00 87 11/04/18 00:00 Mechanical Ventilator 11/04/18 00:00 35 11/03/18 23:17 92 22 35 11/03/18 21:53 86 21 35 11/03/18 20:00 35 11/03/18 20:00 97.9 88 24 130/74 (92) 99 88 11/03/18 20:00 86 11/03/18 20:00 Mechanical Ventilator 11/03/18 19:49 89 20 35 11/03/18 17:00 93 21 35 11/03/18 16:00 35 11/03/18 16:00 98.4 85 20 120/78 (92) 99 85 11/03/18 16:00 Mechanical Ventilator 11/03/18 16:00 87 11/03/18 15:03 97 20 35 Intake and Output 11/03/18 11/04/18 18:59 06:59 Intake Total 998.4 ml 1005 ml Output Total 500 ml 250 ml Balance 498.4 ml 755 ml Intake Free Water 300 ml 225 ml IV Total 113.4 ml Tube Feeding 585 ml 780 ml Output Urine Total 500 ml 250 ml # Bowel Movements 2 3 Laboratory Tests 11/04/18 04:00: White Blood Count 12.2H, Red Blood Count 3.04L, Hemoglobin 8.2L, Hematocrit 26.4L, Mean Corpuscular Volume 87, Mean Corpuscular Hemoglobin 26.9L, Mean Corpuscular Hemoglobin Concent 30.9L, Red Cell Distribution Width 14.8, Platelet Count 324, Mean Platelet Volume 6.4L, Neutrophils (%) (Auto) 65.3, Lymphocytes (%) (Auto) 18.7L, Monocytes (%) (Auto) 11.8H, Eosinophils (%) (Auto ) 3.4H, Basophils (%) (Auto) 0.9, Sodium Level 141, Potassium Level 4.2, Chloride Level 108H, Carbon Dioxide Level 28, Anion Gap 5, Blood Urea Nitrogen 31H, Creatinine 1.1, Estimat Glomerular Filtration Rate > 60, Glucose Level 89, Calcium Level 9.4 Height (Feet): 5 Height (Inches): 3.00 Weight (Pounds): 128 General Appearance: lethargic EENT: normal ENT inspection Neck: normal alignment Cardiovascular: normal peripheral pulses, normal rate, regular rhythm Respiratory/Chest: chest wall non-tender, lungs clear, normal breath sounds Abdomen: normal bowel sounds, non tender, soft Extremities: normal inspection Edema: no edema noted Arm (L), no edema noted Arm (R), no edema noted Leg (L), no edema noted Leg (R), no edema noted Pedal (L), no edema noted Pedal (R), no edema noted Generalized Neurologic: motor weakness Skin: normal pigmentation, warm/dry Gato Viveros DO Nov 04, 2018 14:03
[2018-11-04 16:00] VITALS: BP 112/70
--- NOTE | 2018-11-04 19:11 | NUR ---
HAND-OFF: Report given to ODILIA Gurrola.
--- NOTE | 2018-11-04 19:12 | NUR ---
NURSE NOTES: Received bedside report from ODILIA Guerrero.Patient stable,obtunded,open eyes,SR on council member,Portex 8, SIMV 8 TV 600 FiO2 35% PEEP 8 GT running with Jevity 1.2 @ 65 ml/hr flush 75 Q4 hrs,BS active in all quadrants,IV asymptomatic,intact PICC line on PRASHANTH TKO,no s/s of respiratory distress or pain noted,will continue to monitor and follow POC
--- NOTE | 2018-11-04 19:39 | NUR ---
CASE MANAGEMENT: REVIEW SI: SEPSIS . ANEMIA . T 98.5 HR 86 RR 16 BP 112/70 SAT 100% MECH VENT FIO2 35 WBC 12.2 H/H 8.2/26.4 BUN 31 IS: AMIKACIN IV Q36HR PROTONIX IV QD CARAFATE GT QID STEP DOWN UNIT STATUS DCP: PATIENT IS FROM [facility]
[2018-11-04 20:00] VITALS: BP 136/71
[2018-11-04] MEDS: Dyna-Hex 2% Top Sol 2oz TOPIC SCH (20:23)
[2018-11-04] MEDS: Amikacin 850 MG in NS 110 ML IV SCH (20:23)
[2018-11-05] VITALS: BP 132/73
[2018-11-05 04:00] VITALS: BP 118/65
[2018-11-05 07:07] LABS: ALANINE AMINOTRANSFERASE 34 U/L (12-78); ALBUMIN 2.4 G/DL (3.4-5.0); ALBUMIN/GLOBULIN RATIO 0.5 (1.0-2.7); ALKALINE PHOSPHATASE 114 U/L (46-116); ANION GAP 8 mmol/L (5-15); ASPARTATE AMINO TRANSFERASE 20 U/L (15-37); BILIRUBIN,TOTAL 0.2 MG/DL (0.2-1.0); BLOOD UREA NITROGEN 32 mg/dL (7-18); CALCIUM 9.2 MG/DL (8.5-10.1); CARBON DIOXIDE 28 MMOL/L (21-32); CHLORIDE 106 MMOL/L (98-107); CREATININE 1.2 MG/DL (0.55-1.30); PHOSPHORUS 3.4 MG/DL (2.5-4.9); POTASSIUM 3.9 MMOL/L (3.5-5.1); SODIUM 142 MMOL/L (136-145)
--- NOTE | 2018-11-05 07:09 | NUR ---
HAND-OFF: Report given to ODILIA Guerrero.Patient stable.
--- NOTE | 2018-11-05 07:18 | NUR ---
NURSE NOTES: Received report from ODILIA Gurrola. Patient is resting in bed, in stable condition. Vent settings noted as ordered. Observed no presence of pain or discomfort at this time. Bed is in lowest position, brakes engaged. Call light is kept within easy reach. Will continue to monitor patient.
[2018-11-05 08:00] VITALS: BP 128/84
[2018-11-05 08:03] LABS: HEMATOCRIT 24.2 % (42.0-52.0); HEMOGLOBIN 7.6 G/DL (14.2-18.0); MEAN CORPUSCULAR VOLUME 87 FL (80-99); PLATELET COUNT 271 K/UL (150-450); RED BLOOD COUNT 2.77 M/UL (4.70-6.10); WHITE BLOOD COUNT 9.4 K/UL (4.8-10.8)
[2018-11-05] MEDS: Sucralfate 1gm tab GT SCH ×4 (08:17→20:51)
[2018-11-05] MEDS: Pantoprazole Inj IV SCH (08:17)
[2018-11-05] MEDS: Heparin 5000 units/ml inj SUBQ SCH ×2 (08:18→20:53)
--- NOTE | 2018-11-05 10:25 | Pulmonolgy Critical Care Note ---
Critical Care - Asmt/Plan Problems: (1) Sepsis (2) Respiratory failure, [id number] (3) Hypothyroidism (4) MDR Acinetobacter baumannii infection (5) Alzheimer's dementia (6) Severe protein-calorie malnutrition (7) Feeding by G-tube Respiratory: monitor respiratory rate, adjust FIO2, CXR Cardiac: continue to monitor HR/BP Renal: F/U I&O, keep IV fluid Infectious Disease: check cultures Gastrointestinal: continue feedings/current rate Endocrine: monitor blood sugar, check HgA1C Hematologic: monitor H/H, transfuse if hgb<8.5 Neurologic: PRN Ativan, keep patient comfortable Affect: PRN ativan Prophylaxis: Protonix, Heparin Time Spent (Minutes): 40 Notes Reviewed: 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 with: nurses, consultants, casey saw operatorit help desk manager - Objective Last 24 Hour Vital Signs Date Time Temp Pulse Resp B/P (MAP) Pulse Ox O2 Delivery O2 Flow Rate FiO2 11/05/18 09:12 80 18 35 11/05/18 08:00 Mechanical Ventilator 11/05/18 08:00 98.0 81 16 128/84 (99) 99 11/05/18 08:00 35 11/05/18 06:30 76 18 35 11/05/18 05:06 81 19 35 11/05/18 04:00 98.0 77 22 118/65 (82) 99 11/05/18 04:00 Mechanical Ventilator 11/05/18 04:00 35 11/05/18 03:37 77 11/05/18 03:00 80 22 35 11/05/18 01:04 77 21 35 11/05/18 00:00 Mechanical Ventilator 11/05/18 00:00 98.2 81 21 132/73 (92) 100 11/04/18 23:28 79 11/04/18 23:13 83 20 35 11/04/18 20:49 87 18 35 11/04/18 20:00 Mechanical Ventilator 11/04/18 20:00 98.4 85 21 136/71 (92) 99 11/04/18 20:00 35 11/04/18 19:42 77 11/04/18 19:20 77 15 35 11/04/18 17:00 82 17 35 11/04/18 16:00 86 11/04/18 16:00 Mechanical Ventilator 11/04/18 16:00 35 11/04/18 16:00 98.5 86 16 112/70 (84) 100 86 11/04/18 15:25 80 16 35 11/04/18 12:38 79 13 35 11/04/18 12:00 35 11/04/18 12:00 98.9 89 17 107/63 (78) 100 89 11/04/18 12:00 81 11/04/18 12:00 Mechanical Ventilator 11/04/18 11:06 84 16 35 Status: awake Condition: critical HEENT: atraumatic, normocephalic Neck: full ROM Lungs: chest wall tender Heart: HR/BP stable Abdomen: soft, non-tender, feeding tube Extremities: edema Decubiti: stage Critical Care - Subjective ROS Limited/Unobtainable: Yes EKG Rhythm: Sinus Rhythm FI02: 35 Vent Support Breath Rate: 8 Vent Support Mode: IMV/SIMV Vent Tidal Volume: 600 Sputum Amount: Small PEEP: 5.0 PIP: 26 Tube Feeding Amount: 65 I&O: Intake and Output 11/04/18 11/05/18 19:00 07:00 Intake Total 855 ml 978.4 ml Output Total 400 ml 400 ml Balance 455 ml 578.4 ml Intake Free Water 75 ml 150 ml IV Total 113.4 ml Tube Feeding 780 ml 715 ml Output Urine Total 400 ml 400 ml # Voids 2 # Bowel Movements 4 3 CXR: PUMA Labs: Laboratory Tests Test 11/05/18 04:30 White Blood Count 9.4 K/UL (4.8-10.8) Red Blood Count 2.77 M/UL (4.70-6.10) L Hemoglobin 7.6 G/DL (14.2-18.0) L Hematocrit 24.2 % (42.0-52.0) L Mean Corpuscular Volume 87 FL (80-99) Mean Corpuscular Hemoglobin 27.4 PG (27.0-31.0) Mean Corpuscular Hemoglobin Concent 31.4 G/DL (32.0-36.0) L Red Cell Distribution Width 15.0 % (11.6-14.8) H Platelet Count 271 K/UL (150-450) Mean Platelet Volume 6.7 FL (6.5-10.1) Neutrophils (%) (Auto) % (45.0-75.0) Lymphocytes (%) (Auto) % (20.0-45.0) Monocytes (%) (Auto) % (1.0-10.0) Eosinophils (%) (Auto) % (0.0-3.0) Basophils (%) (Auto) % (0.0-2.0) Neutrophils % (Manual) Pending Lymphocytes % (Manual) Pending Platelet Estimate Pending Platelet Morphology Pending Erythrocyte Sedimentation Rate 115 MM/HR (0-20) H Sodium Level 142 MMOL/L (136-145) Potassium Level 3.9 MMOL/L (3.5-5.1) Chloride Level 106 MMOL/L (98-107) Carbon Dioxide Level 28 MMOL/L (21-32) Anion Gap 8 mmol/L (5-15) Blood Urea Nitrogen 32 mg/dL (7-18) H Creatinine 1.2 MG/DL (0.55-1.30) Estimat Glomerular Filtration Rate 59.9 mL/min (>60) Glucose Level 126 MG/DL (74-106) H Calcium Level 9.2 MG/DL (8.5-10.1) Phosphorus Level 3.4 MG/DL (2.5-4.9) Magnesium Level 1.9 MG/DL (1.8-2.4) Total Bilirubin 0.2 MG/DL (0.2-1.0) Aspartate Amino Transf (AST/SGOT) 20 U/L (15-37) Alanine Aminotransferase (ALT/SGPT) 34 U/L (12-78) Alkaline Phosphatase 114 U/L (46-116) C-Reactive Protein, Quantitative 4.7 mg/dL (0.00-0.90) H Total Protein 7.0 G/DL (6.4-8.2) Albumin 2.4 G/DL (3.4-5.0) L Globulin 4.6 g/dL Albumin/Globulin Ratio 0.5 (1.0-2.7) L Huma Keating MD Nov 05, 2018 10:25
--- NOTE | 2018-11-05 11:10 | NUR ---
NURSE NOTES: Noted Dr. Keating's order for blood transfusion. This nurse called patient's public guardian, Ms. Morrow, deferred to Ms. Morrow's duty worker, Raúl. Informed Raúl of situation and need for blood transfusion, per Raúl "Doctor will need to fill out document for any invasive procedure which is then sent to the court and will notify doctor if okay to give blood transfusion." Noted. This nurse spoke with Dr. Keating regarding Raúl's instructions, Dr. Keating acknowledged and informed this nurse that blood transfusion is emergent and will use two doctor's consent for procedure. Dr. Keating signed blood transfusion consent. Contacted and informed Dr. Viveros of situation and need for signature for blood transfusion consent. Awaiting reply. Will continue to monitor patient.
[2018-11-05 12:00] VITALS: BP 135/67
--- NOTE | 2018-11-05 12:30 | NUR ---
NURSE NOTES: Contacted and informed Dr. Viveros that his signature is needed for the emergent blood transfusion for patient and inquired if MD will be in hospital today. Per Dr. Viveros stated "Will be in one hour. Dr. Nath auditing control clerk PRN." Noted. Will continue to monitor patient.
--- NOTE | 2018-11-05 12:40 | Infectious Diseases Prog Note ---
Assessment/Plan Assessment/Plan Assessment: Sepsis; improving- ?2ry to UTI -11/04 CXR: Hazy density at the right lung base demonstrated unchanged. This is probably atelectasis. Remainder of the lungs are essentially clear. -11/01 CXR: There is mild atelectasis at the right lung base. 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 diff Dysphagia s/p G-tube Anemia. CVA/TIA w/ hemiplegia functional quadriplegia chronic encephalopathy CAD CHF Dm2 GIB s/p multiple EGDs in the past hx of severe esophagitis schizoaffective disease [facility] resident multiple admissions VRE colonization Plan: -Continue Amikacin #5/5 to cover sputum pathogens given leukocytosis -11/01 SP Meropenem #4 -10/29 SP IV Vanco #2, Cefepime #2 and Tigecycline #1 -10/28 SP LEavquin x1 -10/09 SP Ertapenem #5 - 10/04 SP Meropenem #2 -10/03/18 SP IV Vancomycin #2 and Cefepime #2 -08/09/18 SP Bactrim #7 -08/03 SP Vancomycin and Cefepime #3 -08/01/18 SP Ceftriaxone x1 -f/u cx -Monitor CBC/CMP, temperatures -wound care -aspiration precautions -Cdiff if diarrhea Subjective Allergies: Coded Allergies: NO KNOWN DRUG ALLERGIES (Verified Allergy, Unknown, 09/11/16) Subjective afebrile leukocytosis resolved Objective Vital Signs Last 24 Hour Vital Signs Date Time Temp Pulse Resp B/P (MAP) Pulse Ox O2 Delivery O2 Flow Rate FiO2 11/05/18 10:50 82 19 35 11/05/18 09:12 80 18 35 11/05/18 08:00 Mechanical Ventilator 11/05/18 08:00 98.0 81 16 128/84 (99) 99 11/05/18 08:00 35 11/05/18 07:40 76 11/05/18 06:30 76 18 35 11/05/18 05:06 81 19 35 11/05/18 04:00 98.0 77 22 118/65 (82) 99 11/05/18 04:00 Mechanical Ventilator 11/05/18 04:00 35 11/05/18 03:37 77 11/05/18 03:00 80 22 35 11/05/18 01:04 77 21 35 11/05/18 00:00 Mechanical Ventilator 11/05/18 00:00 98.2 81 21 132/73 (92) 100 11/04/18 23:28 79 11/04/18 23:13 83 20 35 11/04/18 20:49 87 18 35 11/04/18 20:00 Mechanical Ventilator 11/04/18 20:00 98.4 85 21 136/71 (92) 99 11/04/18 20:00 35 11/04/18 19:42 77 11/04/18 19:20 77 15 35 11/04/18 17:00 82 17 35 11/04/18 16:00 86 11/04/18 16:00 Mechanical Ventilator 11/04/18 16:00 35 11/04/18 16:00 98.5 86 16 112/70 (84) 100 86 11/04/18 15:25 80 16 35 11/04/18 12:38 79 13 35 Height (Feet): 5 Height (Inches): 3.00 Weight (Pounds): 128 Objective Status: awake Condition: critical HEENT: atraumatic Lungs: chest wall tender, rales Heart: HR/BP stable Abdomen: soft, non-tender Extremities: no C/C/E, edema Decubiti: stage Laboratory Tests Test 11/05/18 04:30 White Blood Count 9.4 K/UL (4.8-10.8) Red Blood Count 2.77 M/UL (4.70-6.10) L Hemoglobin 7.6 G/DL (14.2-18.0) L Hematocrit 24.2 % (42.0-52.0) L Mean Corpuscular Volume 87 FL (80-99) Mean Corpuscular Hemoglobin 27.4 PG (27.0-31.0) Mean Corpuscular Hemoglobin Concent 31.4 G/DL (32.0-36.0) L Red Cell Distribution Width 15.0 % (11.6-14.8) H Platelet Count 271 K/UL (150-450) Mean Platelet Volume 6.7 FL (6.5-10.1) Neutrophils (%) (Auto) % (45.0-75.0) Lymphocytes (%) (Auto) % (20.0-45.0) Monocytes (%) (Auto) % (1.0-10.0) Eosinophils (%) (Auto) % (0.0-3.0) Basophils (%) (Auto) % (0.0-2.0) Differential Total Cells Counted 100 Neutrophils % (Manual) 63 % (45-75) Lymphocytes % (Manual) 25 % (20-45) Monocytes % (Manual) 10 % (1-10) Eosinophils % (Manual) 2 % (0-3) Basophils % (Manual) 0 % (0-2) Band Neutrophils 0 % (0-8) Platelet Estimate Adequate Platelet Morphology Normal Red Blood Cell Morphology Normal Erythrocyte Sedimentation Rate 115 MM/HR (0-20) H Sodium Level 142 MMOL/L (136-145) Potassium Level 3.9 MMOL/L (3.5-5.1) Chloride Level 106 MMOL/L (98-107) Carbon Dioxide Level 28 MMOL/L (21-32) Anion Gap 8 mmol/L (5-15) Blood Urea Nitrogen 32 mg/dL (7-18) H Creatinine 1.2 MG/DL (0.55-1.30) Estimat Glomerular Filtration Rate 59.9 mL/min (>60) Glucose Level 126 MG/DL (74-106) H Calcium Level 9.2 MG/DL (8.5-10.1) Phosphorus Level 3.4 MG/DL (2.5-4.9) Magnesium Level 1.9 MG/DL (1.8-2.4) Total Bilirubin 0.2 MG/DL (0.2-1.0) Aspartate Amino Transf (AST/SGOT) 20 U/L (15-37) Alanine Aminotransferase (ALT/SGPT) 34 U/L (12-78) Alkaline Phosphatase 114 U/L (46-116) C-Reactive Protein, Quantitative 4.7 mg/dL (0.00-0.90) H Total Protein 7.0 G/DL (6.4-8.2) Albumin 2.4 G/DL (3.4-5.0) L Globulin 4.6 g/dL Albumin/Globulin Ratio 0.5 (1.0-2.7) L Current Medications Medications (Trade) Dose Ordered Sig/Wanda Route PRN Reason Start Time Stop Time Status Last Admin Dose Admin Acetaminophen (Tylenol) 650 mg Q4H PRN ORAL FEVER 10/28/18 18:30 11/27/18 18:29 Albuterol/ Ipratropium (Albuterol/ Ipratropium) 3 ml Q4H PRN HHN Shortness of Breath 11/02/18 10:30 11/07/18 10:29 Amikacin Protocol (Amikacin pharmacy to dose) 1 ea DAILY PRN MISC Per rx protocol 11/01/18 18:15 12/01/18 18:14 Amikacin Sulfate 850 mg/Sodium Chloride 113.4 ml @ 113.4 mls/ hr Q36H IV 11/03/18 08:00 11/10/18 07:59 11/04/18 20:23 Chlorhexidine Gluconate (Jasmin-Hex 2%) 1 applic DAILY@2000 TOPIC 10/29/18 20:00 11/28/18 19:59 11/04/18 20:23 Dextrose (Dextrose 50%) 25 ml Q30M PRN IV Hypoglycemia 10/30/18 15:00 11/29/18 14:53 Dextrose (Dextrose 50%) 50 ml Q30M PRN IV hypoglycemia 10/30/18 15:00 11/29/18 14:59 Heparin Sodium (Porcine) (Heparin 5000 units/ml) 5,000 units EVERY 12 HOURS SUBQ 10/28/18 21:00 11/27/18 20:59 11/05/18 08:18 Levothyroxine Sodium (Synthroid) 75 mcg DAILY GT 11/03/18 09:00 12/03/18 08:59 11/05/18 08:17 Lorazepam (Ativan 2mg/ml 1ml) 2 mg Q2H PRN IV For Anxiety 11/02/18 10:30 11/09/18 10:29 Morphine Sulfate (Morphine Sulfate) 4 mg Q4H PRN IVP Severe Pain (Pain Scale 7-10) 11/02/18 10:30 11/09/18 10:29 Ondansetron HCl (Zofran) 4 mg Q6H PRN IVP Nausea & Vomiting 10/28/18 18:30 11/27/18 18:29 Pantoprazole (Protonix) 40 mg DAILY IV 10/29/18 09:00 11/28/18 08:59 11/05/18 08:17 Polyethylene Glycol (Miralax) 17 gm DAILYPRN PRN ORAL Constipation 10/28/18 18:30 11/27/18 18:29 Sucralfate (Carafate) 1 gm FOUR TIMES A DAY GT 10/28/18 21:00 11/27/18 20:59 11/05/18 12:04 Lisy Lai M.D. Nov 05, 2018 12:39
--- NOTE | 2018-11-05 12:42 | NUR ---
*-* INSURANCE *-* ALL CLINICALS AND REVIEWS HAVE BEEN FAXED: [id number] OCTAVIAM:DANA P:[phone] F:[phone]
--- NOTE | 2018-11-05 12:50 | NUR ---
NURSE NOTES: Dr. Viveros at nurse station, Dr. Viveros signed blood consent form along with Dr. Keating as emergent. Copy of form placed in chart. Will continue to monitor patient. Dr. Viveros also ordered occult blood stool x 3, if OB Stool positive will call GI consult, if OB stool negative will call biomedical electronics technician. Noted. Also ordered CBC and CMP tomorrow AM. Orders entered, noted, and carried out. Will continue to monitor patient.
--- NOTE | 2018-11-05 13:14 | General Progress Note ---
Assessment/Plan Problem List: (1) Acute renal failure ICD Codes: N17.9 - Acute kidney failure, unspecified SNOMED: 11627227 (2) Sepsis ICD Codes: A41.9 - Sepsis, unspecified organism SNOMED: 36771268 Qualifiers: Qualified Codes: A41.9 - Sepsis, unspecified organism (3) Severe protein-calorie malnutrition ICD Codes: E43 - Unspecified severe protein-calorie malnutrition SNOMED: 423330231 (4) Feeding by G-tube ICD Codes: Z93.1 - Gastrostomy status SNOMED: 599933787, 858070592 (5) Respiratory failure, [id number]-kyeizlt ICD Codes: J96.20 - Respiratory failure, omllk-wp-jlfpxyj SNOMED: 19858425 (6) UTI (urinary tract infection) ICD Codes: N39.0 - Urinary tract infection, site not specified SNOMED: 08533647 Qualifiers: Qualified Codes: N39.0 - Urinary tract infection, site not specified (7) Alzheimer's dementia ICD Codes: G30.9 - Alzheimer's disease, unspecified SNOMED: 42980111 (8) Anemia ICD Codes: D64.9 - Anemia, unspecified SNOMED: 642799743 Status: unchanged Assessment/Plan vent abx cbc bmp am transfuse prn, stool guiac x 3, dc plan if clear Subjective Constitutional: Reports: weakness Allergies: Coded Allergies: NO KNOWN DRUG ALLERGIES (Verified Allergy, Unknown, 09/11/16) All Systems: reviewed and negative except above Subjective trach vent altered Objective Last 24 Hour Vital Signs Date Time Temp Pulse Resp B/P (MAP) Pulse Ox O2 Delivery O2 Flow Rate FiO2 11/05/18 13:00 88 22 35 11/05/18 12:00 Mechanical Ventilator 11/05/18 12:00 35 11/05/18 12:00 98.1 85 14 135/67 (89) 99 11/05/18 10:50 82 19 35 11/05/18 09:12 80 18 35 11/05/18 08:00 Mechanical Ventilator 11/05/18 08:00 98.0 81 16 128/84 (99) 99 11/05/18 08:00 35 11/05/18 07:40 76 11/05/18 06:30 76 18 35 11/05/18 05:06 81 19 35 11/05/18 04:00 98.0 77 22 118/65 (82) 99 11/05/18 04:00 Mechanical Ventilator 11/05/18 04:00 35 11/05/18 03:37 77 11/05/18 03:00 80 22 35 11/05/18 01:04 77 21 35 11/05/18 00:00 Mechanical Ventilator 11/05/18 00:00 98.2 81 21 132/73 (92) 100 11/04/18 23:28 79 11/04/18 23:13 83 20 35 11/04/18 20:49 87 18 35 11/04/18 20:00 Mechanical Ventilator 11/04/18 20:00 98.4 85 21 136/71 (92) 99 11/04/18 20:00 35 11/04/18 19:42 77 11/04/18 19:20 77 15 35 11/04/18 17:00 82 17 35 11/04/18 16:00 86 11/04/18 16:00 Mechanical Ventilator 11/04/18 16:00 35 11/04/18 16:00 98.5 86 16 112/70 (84) 100 86 11/04/18 15:25 80 16 35 Intake and Output 11/04/18 11/05/18 19:00 07:00 Intake Total 855 ml 978.4 ml Output Total 400 ml 400 ml Balance 455 ml 578.4 ml Intake Free Water 75 ml 150 ml IV Total 113.4 ml Tube Feeding 780 ml 715 ml Output Urine Total 400 ml 400 ml # Voids 2 # Bowel Movements 4 3 Laboratory Tests 11/05/18 04:30: White Blood Count 9.4, Red Blood Count 2.77L, Hemoglobin 7.6L, Hematocrit 24.2L , Mean Corpuscular Volume 87, Mean Corpuscular Hemoglobin 27.4, Mean Corpuscular Hemoglobin Concent 31.4L, Red Cell Distribution Width 15.0H, Platelet Count 271, Mean Platelet Volume 6.7, Neutrophils (%) (Auto) , Lymphocytes (%) (Auto) , Monocytes (%) (Auto) , Eosinophils (%) (Auto) , Basophils (%) (Auto) , Differential Total Cells Counted 100, Neutrophils % ( Manual) 63, Lymphocytes % (Manual) 25, Monocytes % (Manual) 10, Eosinophils % ( Manual) 2, Basophils % (Manual) 0, Band Neutrophils 0, Platelet Estimate Adequate, Platelet Morphology Normal, Red Blood Cell Morphology Normal, Erythrocyte Sedimentation Rate 115H, Sodium Level 142, Potassium Level 3.9, Chloride Level 106, Carbon Dioxide Level 28, Anion Gap 8, Blood Urea Nitrogen 32H, Creatinine 1.2, Estimat Glomerular Filtration Rate 59.9, Glucose Level 126H , Calcium Level 9.2, Phosphorus Level 3.4, Magnesium Level 1.9, Total Bilirubin 0.2, Aspartate Amino Transf (AST/SGOT) 20, Alanine Aminotransferase (ALT/SGPT) 34, Alkaline Phosphatase 114, C-Reactive Protein, Quantitative 4.7H, Total Protein 7.0, Albumin 2.4L, Globulin 4.6, Albumin/Globulin Ratio 0.5L Height (Feet): 5 Height (Inches): 3.00 Weight (Pounds): 128 General Appearance: lethargic EENT: normal ENT inspection Neck: normal alignment Cardiovascular: normal peripheral pulses, normal rate, regular rhythm Respiratory/Chest: chest wall non-tender, lungs clear, normal breath sounds Abdomen: normal bowel sounds, non tender, soft Extremities: normal inspection Edema: no edema noted Arm (L), no edema noted Arm (R), no edema noted Leg (L), no edema noted Leg (R), no edema noted Pedal (L), no edema noted Pedal (R), no edema noted Generalized Neurologic: motor weakness Skin: normal pigmentation, warm/dry Gato Viveros DO Nov 05, 2018 13:14
--- NOTE | 2018-11-05 13:52 | NUR ---
RD ASSESSMENT & RECOMMENDATIONS SEE CARE ACTIVITY FOR COMPLETE ASSESSMENT DAILY ESTIMATED NEEDS: Needs based on Critical care, underweight, TF [employer]/ 56.8kg 27-32 kcals/kg 2838-0877 total kcals 1.2-2 g protein/kg 68-114 g total protein 25-30 mL/kg 1386-6568 total fluid mLs NUTRITION DIAGNOSIS: Swallowing difficulty R/T respiratory status as evidenced by pt vent dep via trach, PEG dep. CURRENT TF:Jevity 1.2 @ 65ml/hr x 22 hrs ENTERAL NUTRITION RECOMMENDATIONS: Jevity 1.2 @ 65ml/hr x 22 hrs to provide 1430ml, 1716kcal, 79g prot, 1154ml free water * Maintain current TF * HOLD TF 1h before and 1 after synthroid administration. * Flush per MD/ HOB over 30 degrees ADDITIONAL RECOMMENDATIONS: * Calibrated bedscale weight for accurate CBW, weekly wt monitoring * Monitor need for accucheck w/ SSI- h/o DM + hyperglycemia * Monitor lytes w/ TF, replete as needed * R foot DTI: Add JOYCELYN BID via PEG .
--- NOTE | 2018-11-05 14:42 | Diagnostic Imaging Report ---
APPROVED REPORT CPT Code: 69166 Present Symptoms Shortness of breath Comments: Technically difficult study due to BLE contracture of hip and knee. RIGHT LEG: Venous imaging reveals a patent deep venous system. There is no evidence of thrombus within the femoral, popliteal or tibial segments. The greater saphenous vein is also within normal limits. Doppler indicates normal spontaneous flow within these segments. LEFT LEG: Venous imaging reveals recanalized chronic thrombus in the superficial femoral vein. Large collateral vein noted anterior to the superficial femoral artery. Remainder of the deep venous system within normal limits. No evidence of thrombus within the common femoral, or tibial segments. Greater saphenous vein also within normal limits. Doppler indicates normal spontaneous flow within these segments. The popliteal vein was not well visualized, due to contracture.
--- NOTE | 2018-11-05 14:54 | NUR ---
NURSE NOTES:WOUND CARE NOTES:Pt presented with stable dry brown eschar distal/lateral R foot .Periwound without erythema or induration (L)0.9cm x (W)1cm.Non-blanchable erythema without induration noted to L trochanter. sacrum is clean and intact. Areas of non-blanchable erythema without fluctuance or induration noted to medial/lateral and distal lateral L foot. Both heels are boggy but blanchable. Recommendations:Apply moisture barrier to sacrum .Cover with Optifoam drsg .Change every 3days and prn. Apply Cavilon Skin Barrier L trochanter. Cover with Optifoam drsg. Change every 7 days and prn. Apply Cavilon Skin Barrier to lateral L foot. Cover with Optifoam drsg .Change every 7 days and prn. Apply Cavilon Skin Barrier to Both heels. Cover with Optifoam drsgs. Change Q7 days and prn. Apply Betadine to wound lateral R foot.Cover with Optifoam drsg Daily and prn. APM/RENO mattress overlay. Reposition at least every 2hours or as tolerated. Off-load heels with pillow.
--- NOTE | 2018-11-05 15:03 | NUR ---
NURSE NOTES: Spoke with Nidhi of blood bank and informed Nidhi, that blood consent for blood transfusion was signed by Dr. Keating and Dr. Viveros and is emergent. Nidhi acknowledged. Will continue to monitor patient.
[2018-11-05 16:00] VITALS: BP 124/74
--- NOTE | 2018-11-05 16:36 | Nephrology Progress Note ---
Assessment/Plan Problem List: (1) Acute renal failure (2) Sepsis (3) Severe protein-calorie malnutrition (4) Hypothyroidism Assessment (1) Tracheostomy dependence Respiratory failure, fdooq-ov-llvwbkr (2) Sepsis , Leukocytosis (3) GI bleed (4) Acute renal failure, Cr 1.4 (5) HypoThyroidism (6) Alzheimer's (7) Severe protein-calorie malnutrition (8) Feeding by G-tube Plan Antibiotics K supplement pulm support monitor renal parameters Avoid Nephrotoxics check H&H Subjective ROS Limited/Unobtainable: Yes Objective Objective Last 24 Hour Vital Signs Date Time Temp Pulse Resp B/P (MAP) Pulse Ox O2 Delivery O2 Flow Rate FiO2 11/05/18 14:55 84 20 35 11/05/18 13:00 88 22 35 11/05/18 12:00 Mechanical Ventilator 11/05/18 12:00 35 11/05/18 12:00 98.1 85 14 135/67 (89) 99 11/05/18 10:50 82 19 35 11/05/18 09:12 80 18 35 11/05/18 08:00 Mechanical Ventilator 11/05/18 08:00 98.0 81 16 128/84 (99) 99 11/05/18 08:00 35 11/05/18 07:40 76 11/05/18 06:30 76 18 35 11/05/18 05:06 81 19 35 11/05/18 04:00 98.0 77 22 118/65 (82) 99 11/05/18 04:00 Mechanical Ventilator 11/05/18 04:00 35 11/05/18 03:37 77 11/05/18 03:00 80 22 35 11/05/18 01:04 77 21 35 11/05/18 00:00 Mechanical Ventilator 11/05/18 00:00 98.2 81 21 132/73 (92) 100 11/04/18 23:28 79 11/04/18 23:13 83 20 35 11/04/18 20:49 87 18 35 11/04/18 20:00 Mechanical Ventilator 11/04/18 20:00 98.4 85 21 136/71 (92) 99 11/04/18 20:00 35 11/04/18 19:42 77 11/04/18 19:20 77 15 35 11/04/18 17:00 82 17 35 Intake and Output 11/04/18 11/05/18 18:59 06:59 Intake Total 855 ml 1043.4 ml Output Total 400 ml 400 ml Balance 455 ml 643.4 ml Intake Free Water 75 ml 150 ml IV Total 113.4 ml Tube Feeding 780 ml 780 ml Output Urine Total 400 ml 400 ml # Voids 2 # Bowel Movements 4 3 Laboratory Tests 11/05/18 04:30: White Blood Count 9.4, Red Blood Count 2.77L, Hemoglobin 7.6L, Hematocrit 24.2L , Mean Corpuscular Volume 87, Mean Corpuscular Hemoglobin 27.4, Mean Corpuscular Hemoglobin Concent 31.4L, Red Cell Distribution Width 15.0H, Platelet Count 271, Mean Platelet Volume 6.7, Neutrophils (%) (Auto) , Lymphocytes (%) (Auto) , Monocytes (%) (Auto) , Eosinophils (%) (Auto) , Basophils (%) (Auto) , Differential Total Cells Counted 100, Neutrophils % ( Manual) 63, Lymphocytes % (Manual) 25, Monocytes % (Manual) 10, Eosinophils % ( Manual) 2, Basophils % (Manual) 0, Band Neutrophils 0, Platelet Estimate Adequate, Platelet Morphology Normal, Red Blood Cell Morphology Normal, Erythrocyte Sedimentation Rate 115H, Sodium Level 142, Potassium Level 3.9, Chloride Level 106, Carbon Dioxide Level 28, Anion Gap 8, Blood Urea Nitrogen 32H, Creatinine 1.2, Estimat Glomerular Filtration Rate 59.9, Glucose Level 126H , Calcium Level 9.2, Phosphorus Level 3.4, Magnesium Level 1.9, Total Bilirubin 0.2, Aspartate Amino Transf (AST/SGOT) 20, Alanine Aminotransferase (ALT/SGPT) 34, Alkaline Phosphatase 114, C-Reactive Protein, Quantitative 4.7H, Total Protein 7.0, Albumin 2.4L, Globulin 4.6, Albumin/Globulin Ratio 0.5L Height (Feet): 5 Height (Inches): 3.00 Weight (Pounds): 128 General Appearance: no apparent distress Objective no change Sav Salvador MD Nov 05, 2018 16:36
--- NOTE | 2018-11-05 17:18 | NUR ---
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 98.1 HR 85 RR 14 B/P 135/67 SIMV 8 TV 600 FIO2 35% PEEP 5 PS 8 H/H 7.6/24.2 BUN 32 C-REACTIVE 4.7 IS: AMIKACIN IV PROTONIX IV HEPARIN SUBC TRANSFUSE PACKED RBC'S STEP DOWN STATUS
--- NOTE | 2018-11-05 18:30 | NUR ---
NURSE NOTES: 1 unit of PRBC successfully transfused per Dr. Keating's orders. No adverse reactions noted. Will continue to monitor patient.
[2018-11-05 18:32] LABS: % IRON SATURATION 28 % (15-50); IRON 49 ug/dL (50-175); TOTAL IRON BINDING CAPACITY 174 ug/dL (250-450)
[2018-11-05 18:47] LABS: FERRITIN 403 NG/ML (8-388); LACTATE DEHYDROGENASE 152 U/L (81-234)
--- NOTE | 2018-11-05 19:24 | NUR ---
HAND-OFF: Report given to ODILIA Cobb.
--- NOTE | 2018-11-05 19:25 | NUR ---
NURSE NOTES: Report received from ODILIA Guerrero. Observed pt sleeping on the bed. Pt is obtunded, open eyes, but non-verbal. SR with radiation monitor. Trach to vent, portex 8, SIMV 8, TD 600, PEEP 8, FIO2 35%. GT site intact and running Jevity 1.2 running 65cc/hr. Condom catheter is intact and draining well. PICC PRASHANTH intact and patent. Bed in the lowest position. Side rails up x3. Will continue to monitor.
[2018-11-05 20:00] VITALS: BP 134/72
[2018-11-05] MEDS: Dyna-Hex 2% Top Sol 2oz TOPIC SCH (20:52)
[2018-11-06] VITALS: BP 126/76
[2018-11-06 04:00] VITALS: BP 119/65
[2018-11-06 06:17] LABS: BASOPHILS % (AUTO) 0.6 % (0.0-2.0); EOSINOPHILS % (AUTO) 4.4 % (0.0-3.0); HEMATOCRIT 28.5 % (42.0-52.0); LYMPHOCYTES % (AUTO) 18.4 % (20.0-45.0); MEAN CORPUSCULAR VOLUME 87 FL (80-99); MONOCYTES % (AUTO) 9.4 % (1.0-10.0); NEUTROPHILS % (AUTO) 67.2 % (45.0-75.0); PLATELET COUNT 267 K/UL (150-450); RED BLOOD COUNT 3.28 M/UL (4.70-6.10); RED CELL DISTRIBUTION WIDTH 14.9 % (11.6-14.8); WHITE BLOOD COUNT 8.9 K/UL (4.8-10.8)
--- NOTE | 2018-11-06 07:23 | General Progress Note ---
Assessment/Plan Problem List: (1) Acute renal failure ICD Codes: N17.9 - Acute kidney failure, unspecified SNOMED: 54212883 (2) Sepsis ICD Codes: A41.9 - Sepsis, unspecified organism SNOMED: 88661888 Qualifiers: Qualified Codes: A41.9 - Sepsis, unspecified organism (3) Severe protein-calorie malnutrition ICD Codes: E43 - Unspecified severe protein-calorie malnutrition SNOMED: 275248752 (4) Feeding by G-tube ICD Codes: Z93.1 - Gastrostomy status SNOMED: 472077479, 211592419 (5) Respiratory failure, vsxdb-hv-alvsuub ICD Codes: J96.20 - Respiratory failure, mheov-aw-lptwung SNOMED: 30382326 (6) UTI (urinary tract infection) ICD Codes: N39.0 - Urinary tract infection, site not specified SNOMED: 15367923 Qualifiers: Qualified Codes: N39.0 - Urinary tract infection, site not specified (7) Alzheimer's dementia ICD Codes: G30.9 - Alzheimer's disease, unspecified SNOMED: 73681315 (8) Anemia ICD Codes: D64.9 - Anemia, unspecified SNOMED: 802447776 Status: unchanged Assessment/Plan vent abx cbc bmp am transfuse prn, stool guiac x 3, dc plan if clear Subjective Constitutional: Reports: weakness Allergies: Coded Allergies: NO KNOWN DRUG ALLERGIES (Verified Allergy, Unknown, 09/11/16) All Systems: reviewed and negative except above Subjective trach vent altered Objective Last 24 Hour Vital Signs Date Time Temp Pulse Resp B/P (MAP) Pulse Ox O2 Delivery O2 Flow Rate FiO2 11/06/18 05:03 77 16 35 11/06/18 04:00 98.2 84 18 119/65 (83) 97 11/06/18 04:00 35 11/06/18 04:00 Mechanical Ventilator 11/06/18 04:00 77 11/06/18 03:15 78 14 35 11/06/18 01:13 82 18 35 11/06/18 00:00 Mechanical Ventilator 11/06/18 00:00 98.5 80 14 126/76 (93) 99 11/06/18 00:00 77 11/05/18 23:06 78 17 35 11/05/18 21:06 85 13 35 11/05/18 20:00 35 2/26/19 20:00 Mechanical Ventilator 11/05/18 20:00 98.6 82 17 134/72 (92) 100 11/05/18 20:00 98 11/05/18 19:08 76 14 35 11/05/18 17:21 86 21 35 11/05/18 16:00 98.6 84 16 124/74 (91) 99 11/05/18 16:00 35 11/05/18 16:00 86 11/05/18 16:00 Mechanical Ventilator 11/05/18 14:55 84 20 35 11/05/18 13:00 88 22 35 11/05/18 12:00 Mechanical Ventilator 11/05/18 12:00 35 11/05/18 12:00 98.1 85 14 135/67 (89) 99 11/05/18 11:41 76 11/05/18 10:50 82 19 35 11/05/18 09:12 80 18 35 11/05/18 08:00 Mechanical Ventilator 11/05/18 08:00 98.0 81 16 128/84 (99) 99 11/05/18 08:00 35 11/05/18 07:40 76 Intake and Output 11/05/18 11/06/18 19:00 07:00 Intake Total 130 ml 825 ml Output Total 300 ml 350 ml Balance -170 ml 475 ml Intake Free Water 110 ml Tube Feeding 130 ml 715 ml Output Urine Total 300 ml 350 ml # Bowel Movements 3 Laboratory Tests 11/05/18 18:00: Sickle Cell Screen [Pending], Iron Level 49L, Total Iron Binding Capacity 174L, Percent Iron Saturation 28, Unsaturated Iron Binding 125, Ferritin 403H, Lactate Dehydrogenase 152 11/06/18 04:30: White Blood Count 8.9, Red Blood Count 3.28L, Hemoglobin 9.0L, Hematocrit 28.5L , Mean Corpuscular Volume 87, Mean Corpuscular Hemoglobin 27.6, Mean Corpuscular Hemoglobin Concent 31.7L, Red Cell Distribution Width 14.9H, Platelet Count 267, Mean Platelet Volume 6.4L, Neutrophils (%) (Auto) 67.2, Lymphocytes (%) (Auto) 18.4L, Monocytes (%) (Auto) 9.4, Eosinophils (%) (Auto) 4.4H, Basophils (%) (Auto) 0.6, Sodium Level [Pending], Potassium Level [Pending ], Chloride Level [Pending], Carbon Dioxide Level [Pending], Blood Urea Nitrogen [Pending], Creatinine [Pending], Estimat Glomerular Filtration Rate [ Pending], Glucose Level [Pending], Calcium Level [Pending], Phosphorus Level [ Pending], Magnesium Level [Pending], Total Bilirubin [Pending], Aspartate Amino Transf (AST/SGOT) [Pending], Alanine Aminotransferase (ALT/SGPT) [Pending], Alkaline Phosphatase [Pending], Total Protein [Pending], Albumin [Pending], Globulin [Pending] Height (Feet): 5 Height (Inches): 3.00 Weight (Pounds): 134 General Appearance: lethargic EENT: normal ENT inspection Neck: normal alignment Cardiovascular: normal peripheral pulses, normal rate, regular rhythm Respiratory/Chest: chest wall non-tender, lungs clear, normal breath sounds Abdomen: normal bowel sounds, non tender, soft Extremities: normal inspection Edema: no edema noted Arm (L), no edema noted Arm (R), no edema noted Leg (L), no edema noted Leg (R), no edema noted Pedal (L), no edema noted Pedal (R), no edema noted Generalized Neurologic: motor weakness Skin: normal pigmentation, warm/dry Gato Viveros DO Nov 06, 2018 07:23
--- NOTE | 2018-11-06 07:30 | NUR ---
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
[2018-11-06 07:32] LABS: ALANINE AMINOTRANSFERASE 29 U/L (12-78); ALBUMIN 2.5 G/DL (3.4-5.0); ALBUMIN/GLOBULIN RATIO 0.5 (1.0-2.7); ALKALINE PHOSPHATASE 116 U/L (46-116); ANION GAP 10 mmol/L (5-15); ASPARTATE AMINO TRANSFERASE 23 U/L (15-37); BILIRUBIN,TOTAL 0.2 MG/DL (0.2-1.0); BLOOD UREA NITROGEN 28 mg/dL (7-18); CALCIUM 9.3 MG/DL (8.5-10.1); CARBON DIOXIDE 25 MMOL/L (21-32); CHLORIDE 104 MMOL/L (98-107); PHOSPHORUS 3.1 MG/DL (2.5-4.9); POTASSIUM 3.9 MMOL/L (3.5-5.1); SODIUM 139 MMOL/L (136-145)
--- NOTE | 2018-11-06 07:40 | NUR ---
HAND-OFF: Report given to ODILIA Simental.
[2018-11-06 08:00] VITALS: BP 131/75
[2018-11-06] MEDS: Amikacin 850 MG in NS 110 ML IV SCH (08:07)
[2018-11-06] MEDS: Sucralfate 1gm tab GT SCH ×4 (10:21→21:10)
[2018-11-06] MEDS: Pantoprazole Inj IV SCH (10:21)
[2018-11-06] MEDS: Heparin 5000 units/ml inj SUBQ SCH ×2 (10:26→21:10)
--- NOTE | 2018-11-06 11:41 | Infectious Diseases Prog Note ---
Assessment/Plan Assessment/Plan Assessment: Sepsis; improving- ?2ry to UTI -11/04 CXR: Hazy density at the right lung base demonstrated unchanged. This is probably atelectasis. Remainder of the lungs are essentially clear. -11/01 CXR: There is mild atelectasis at the right lung base. 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 diff Dysphagia s/p G-tube Anemia. CVA/TIA w/ hemiplegia functional quadriplegia chronic encephalopathy CAD CHF Dm2 GIB s/p multiple EGDs in the past hx of severe esophagitis schizoaffective disease halfway resident multiple admissions VRE colonization Plan: -D/c Amikacin #6/5 and monitor off abx -11/01 SP Meropenem #4 -10/29 SP IV Vanco #2, Cefepime #2 and Tigecycline #1 -10/28 SP LEavquin x1 -10/09 SP Ertapenem #5 - 10/04 SP Meropenem #2 -10/03/18 SP IV Vancomycin #2 and Cefepime #2 -08/09/18 SP Bactrim #7 -08/03 SP Vancomycin and Cefepime #3 -08/01/18 SP Ceftriaxone x1 -f/u cx -Monitor CBC/CMP, temperatures -wound care -aspiration precautions -Cdiff if diarrhea Subjective Allergies: Coded Allergies: NO KNOWN DRUG ALLERGIES (Verified Allergy, Unknown, 09/11/16) Subjective afebrile no leukocytosis Objective Vital Signs Last 24 Hour Vital Signs Date Time Temp Pulse Resp B/P (MAP) Pulse Ox O2 Delivery O2 Flow Rate FiO2 11/06/18 09:20 75 19 35 11/06/18 08:00 Mechanical Ventilator 11/06/18 08:00 76 11/06/18 08:00 97.9 79 16 131/75 (93) 97 11/06/18 08:00 35 11/06/18 07:27 76 17 35 11/06/18 05:03 77 16 35 11/06/18 04:00 98.2 84 18 119/65 (83) 97 11/06/18 04:00 35 11/06/18 04:00 Mechanical Ventilator 11/06/18 04:00 77 11/06/18 03:15 78 14 35 11/06/18 01:13 82 18 35 11/06/18 00:00 Mechanical Ventilator 11/06/18 00:00 98.5 80 14 126/76 (93) 99 11/06/18 00:00 77 11/05/18 23:06 78 17 35 11/05/18 21:06 85 13 35 11/05/18 20:00 35 11/05/18 20:00 Mechanical Ventilator 11/05/18 20:00 98.6 82 17 134/72 (92) 100 11/05/18 20:00 98 11/05/18 19:08 76 14 35 11/05/18 17:21 86 21 35 11/05/18 16:00 98.6 84 16 124/74 (91) 99 11/05/18 16:00 35 11/05/18 16:00 86 11/05/18 16:00 Mechanical Ventilator 11/05/18 14:55 84 20 35 11/05/18 13:00 88 22 35 11/05/18 12:00 Mechanical Ventilator 11/05/18 12:00 35 11/05/18 12:00 98.1 85 14 135/67 (89) 99 11/05/18 11:41 76 Height (Feet): 5 Height (Inches): 3.00 Weight (Pounds): 134 Objective Status: awake Condition: critical HEENT: atraumatic Lungs: chest wall tender, rales Heart: HR/BP stable Abdomen: soft, non-tender Extremities: no C/C/E, edema Decubiti: stage Laboratory Tests Test 11/05/18 18:00 11/06/18 04:30 Sickle Cell Screen Pending Iron Level 49 ug/dL (50-175) L Total Iron Binding Capacity 174 ug/dL (250-450) L Percent Iron Saturation 28 % (15-50) Unsaturated Iron Binding 125 ug/dL (112-346) Ferritin 403 NG/ML (8-388) H Lactate Dehydrogenase 152 U/L (81-234) White Blood Count 8.9 K/UL (4.8-10.8) Red Blood Count 3.28 M/UL (4.70-6.10) L Hemoglobin 9.0 G/DL (14.2-18.0) L Hematocrit 28.5 % (42.0-52.0) L Mean Corpuscular Volume 87 FL (80-99) Mean Corpuscular Hemoglobin 27.6 PG (27.0-31.0) Mean Corpuscular Hemoglobin Concent 31.7 G/DL (32.0-36.0) L Red Cell Distribution Width 14.9 % (11.6-14.8) H Platelet Count 267 K/UL (150-450) Mean Platelet Volume 6.4 FL (6.5-10.1) L Neutrophils (%) (Auto) 67.2 % (45.0-75.0) Lymphocytes (%) (Auto) 18.4 % (20.0-45.0) L Monocytes (%) (Auto) 9.4 % (1.0-10.0) Eosinophils (%) (Auto) 4.4 % (0.0-3.0) H Basophils (%) (Auto) 0.6 % (0.0-2.0) Sodium Level 139 MMOL/L (136-145) Potassium Level 3.9 MMOL/L (3.5-5.1) Chloride Level 104 MMOL/L (98-107) Carbon Dioxide Level 25 MMOL/L (21-32) Anion Gap 10 mmol/L (5-15) Blood Urea Nitrogen 28 mg/dL (7-18) H Creatinine 1.0 MG/DL (0.55-1.30) Estimat Glomerular Filtration Rate > 60 mL/min (>60) Glucose Level 113 MG/DL (74-106) H Calcium Level 9.3 MG/DL (8.5-10.1) Phosphorus Level 3.1 MG/DL (2.5-4.9) Magnesium Level 1.9 MG/DL (1.8-2.4) Total Bilirubin 0.2 MG/DL (0.2-1.0) Aspartate Amino Transf (AST/SGOT) 23 U/L (15-37) Alanine Aminotransferase (ALT/SGPT) 29 U/L (12-78) Alkaline Phosphatase 116 U/L (46-116) Total Protein 7.3 G/DL (6.4-8.2) Albumin 2.5 G/DL (3.4-5.0) L Globulin 4.8 g/dL Albumin/Globulin Ratio 0.5 (1.0-2.7) L Current Medications Medications (Trade) Dose Ordered Sig/Wanda Route PRN Reason Start Time Stop Time Status Last Admin Dose Admin Acetaminophen (Tylenol) 650 mg Q4H PRN ORAL FEVER 10/28/18 18:30 11/27/18 18:29 Albuterol/ Ipratropium (Albuterol/ Ipratropium) 3 ml Q4H PRN HHN Shortness of Breath 11/02/18 10:30 11/07/18 10:29 Amikacin Protocol (Amikacin pharmacy to dose) 1 ea DAILY PRN MISC Per rx protocol 11/01/18 18:15 12/01/18 18:14 Amikacin Sulfate 850 mg/Sodium Chloride 113.4 ml @ 113.4 mls/ hr Q36H IV 11/03/18 08:00 11/10/18 07:59 11/06/18 08:07 Chlorhexidine Gluconate (Jasmin-Hex 2%) 1 applic DAILY@2000 TOPIC 10/29/18 20:00 11/28/18 19:59 11/05/18 20:52 Dextrose (Dextrose 50%) 25 ml Q30M PRN IV Hypoglycemia 10/30/18 15:00 11/29/18 14:53 Dextrose (Dextrose 50%) 50 ml Q30M PRN IV hypoglycemia 10/30/18 15:00 11/29/18 14:59 Heparin Sodium (Porcine) (Heparin 5000 units/ml) 5,000 units EVERY 12 HOURS SUBQ 10/28/18 21:00 11/27/18 20:59 11/06/18 10:26 Levothyroxine Sodium (Synthroid) 75 mcg DAILY GT 11/03/18 09:00 12/03/18 08:59 11/06/18 10:21 Lorazepam (Ativan 2mg/ml 1ml) 2 mg Q2H PRN IV For Anxiety 11/02/18 10:30 11/09/18 10:29 Morphine Sulfate (Morphine Sulfate) 4 mg Q4H PRN IVP Severe Pain (Pain Scale 7-10) 11/02/18 10:30 11/09/18 10:29 Ondansetron HCl (Zofran) 4 mg Q6H PRN IVP Nausea & Vomiting 10/28/18 18:30 11/27/18 18:29 Pantoprazole (Protonix) 40 mg DAILY IV 10/29/18 09:00 11/28/18 08:59 11/06/18 10:21 Polyethylene Glycol (Miralax) 17 gm DAILYPRN PRN ORAL Constipation 10/28/18 18:30 11/27/18 18:29 Sucralfate (Carafate) 1 gm FOUR TIMES A DAY GT 10/28/18 21:00 11/27/18 20:59 11/06/18 10:21 Lisy Lai M.D. Nov 06, 2018 11:41
--- NOTE | 2018-11-06 11:45 | Pulmonolgy Critical Care Note ---
Critical Care - Asmt/Plan Problems: (1) Sepsis (2) Respiratory failure, [id number] (3) Hypothyroidism (4) MDR Acinetobacter baumannii infection (5) Alzheimer's dementia (6) Severe protein-calorie malnutrition (7) Feeding by G-tube Respiratory: monitor respiratory rate, adjust FIO2, CXR Cardiac: continue to monitor HR/BP Renal: F/U I&O, keep IV fluid Infectious Disease: check cultures, continue antibiotics Gastrointestinal: continue feedings/current rate, abdominal imaging Endocrine: monitor blood sugar, continue sliding scale insulin Hematologic: monitor H/H, transfuse if hgb<8.5 Neurologic: PRN Ativan, keep patient comfortable Affect: PRN ativan Prophylaxis: Protonix, Heparin 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, 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 with: nurses, consultants, case sealerassistant fitness manager - Objective Last 24 Hour Vital Signs Date Time Temp Pulse Resp B/P (MAP) Pulse Ox O2 Delivery O2 Flow Rate FiO2 11/06/18 09:20 75 19 35 11/06/18 08:00 Mechanical Ventilator 11/06/18 08:00 76 11/06/18 08:00 97.9 79 16 131/75 (93) 97 11/06/18 08:00 35 11/06/18 07:27 76 17 35 11/06/18 05:03 77 16 35 11/06/18 04:00 98.2 84 18 119/65 (83) 97 11/06/18 04:00 35 11/06/18 04:00 Mechanical Ventilator 11/06/18 04:00 77 11/06/18 03:15 78 14 35 11/06/18 01:13 82 18 35 11/06/18 00:00 Mechanical Ventilator 11/06/18 00:00 98.5 80 14 126/76 (93) 99 11/06/18 00:00 77 11/05/18 23:06 78 17 35 11/05/18 21:06 85 13 35 11/05/18 20:00 35 11/05/18 20:00 Mechanical Ventilator 11/05/18 20:00 98.6 82 17 134/72 (92) 100 11/05/18 20:00 98 11/05/18 19:08 76 14 35 11/05/18 17:21 86 21 35 11/05/18 16:00 98.6 84 16 124/74 (91) 99 11/05/18 16:00 35 11/05/18 16:00 86 11/05/18 16:00 Mechanical Ventilator 11/05/18 14:55 84 20 35 11/05/18 13:00 88 22 35 11/05/18 12:00 Mechanical Ventilator 11/05/18 12:00 35 11/05/18 12:00 98.1 85 14 135/67 (89) 99 Status: awake Condition: critical Neck: full ROM Lungs: rales, rhonchi Heart: HR/BP stable Abdomen: soft, active bowel sounds, feeding tube Extremities: edema Decubiti: location Critical Care - Subjective ROS Limited/Unobtainable: Yes Condition: critical EKG Rhythm: Sinus Rhythm FI02: 35 Vent Support Breath Rate: 8 Vent Support Mode: IMV/SIMV Vent Tidal Volume: 600 Sputum Amount: Moderate PEEP: 5.0 PIP: 23 Tube Feeding Amount: 65 I&O: Intake and Output 11/05/18 11/06/18 19:00 07:00 Intake Total 130 ml 825 ml Output Total 300 ml 350 ml Balance -170 ml 475 ml Intake Free Water 110 ml Tube Feeding 130 ml 715 ml Output Urine Total 300 ml 350 ml # Bowel Movements 3 CXR: no change Labs: Laboratory Tests Test 11/05/18 18:00 11/06/18 04:30 Sickle Cell Screen Pending Iron Level 49 ug/dL (50-175) L Total Iron Binding Capacity 174 ug/dL (250-450) L Percent Iron Saturation 28 % (15-50) Unsaturated Iron Binding 125 ug/dL (112-346) Ferritin 403 NG/ML (8-388) H Lactate Dehydrogenase 152 U/L (81-234) White Blood Count 8.9 K/UL (4.8-10.8) Red Blood Count 3.28 M/UL (4.70-6.10) L Hemoglobin 9.0 G/DL (14.2-18.0) L Hematocrit 28.5 % (42.0-52.0) L Mean Corpuscular Volume 87 FL (80-99) Mean Corpuscular Hemoglobin 27.6 PG (27.0-31.0) Mean Corpuscular Hemoglobin Concent 31.7 G/DL (32.0-36.0) L Red Cell Distribution Width 14.9 % (11.6-14.8) H Platelet Count 267 K/UL (150-450) Mean Platelet Volume 6.4 FL (6.5-10.1) L Neutrophils (%) (Auto) 67.2 % (45.0-75.0) Lymphocytes (%) (Auto) 18.4 % (20.0-45.0) L Monocytes (%) (Auto) 9.4 % (1.0-10.0) Eosinophils (%) (Auto) 4.4 % (0.0-3.0) H Basophils (%) (Auto) 0.6 % (0.0-2.0) Sodium Level 139 MMOL/L (136-145) Potassium Level 3.9 MMOL/L (3.5-5.1) Chloride Level 104 MMOL/L (98-107) Carbon Dioxide Level 25 MMOL/L (21-32) Anion Gap 10 mmol/L (5-15) Blood Urea Nitrogen 28 mg/dL (7-18) H Creatinine 1.0 MG/DL (0.55-1.30) Estimat Glomerular Filtration Rate > 60 mL/min (>60) Glucose Level 113 MG/DL (74-106) H Calcium Level 9.3 MG/DL (8.5-10.1) Phosphorus Level 3.1 MG/DL (2.5-4.9) Magnesium Level 1.9 MG/DL (1.8-2.4) Total Bilirubin 0.2 MG/DL (0.2-1.0) Aspartate Amino Transf (AST/SGOT) 23 U/L (15-37) Alanine Aminotransferase (ALT/SGPT) 29 U/L (12-78) Alkaline Phosphatase 116 U/L (46-116) Total Protein 7.3 G/DL (6.4-8.2) Albumin 2.5 G/DL (3.4-5.0) L Globulin 4.8 g/dL Albumin/Globulin Ratio 0.5 (1.0-2.7) L Huma Keating MD Nov 06, 2018 11:45
[2018-11-06 12:00] VITALS: BP 140/76
--- NOTE | 2018-11-06 14:12 | Nephrology Progress Note ---
Assessment/Plan Problem List: (1) Acute renal failure (2) Sepsis (3) Severe protein-calorie malnutrition (4) Hypothyroidism Assessment (1) Tracheostomy dependence Respiratory failure, [id number] (2) Sepsis , Leukocytosis (3) GI bleed (4) Acute renal failure, Cr 1.4 (5) HypoThyroidism (6) Alzheimer's (7) Severe protein-calorie malnutrition (8) Feeding by G-tube Plan Antibiotics K supplement pulm support monitor renal parameters Avoid Nephrotoxics check H&H Subjective ROS Limited/Unobtainable: Yes Objective Objective Last 24 Hour Vital Signs Date Time Temp Pulse Resp B/P (MAP) Pulse Ox O2 Delivery O2 Flow Rate FiO2 11/06/18 13:16 74 19 35 11/06/18 12:00 98.1 77 18 140/76 (97) 98 11/06/18 12:00 35 11/06/18 12:00 Mechanical Ventilator 11/06/18 12:00 76 11/06/18 11:25 77 17 35 11/06/18 09:20 75 19 35 11/06/18 08:00 Mechanical Ventilator 11/06/18 08:00 76 11/06/18 08:00 97.9 79 16 131/75 (93) 97 11/06/18 08:00 35 11/06/18 07:27 76 17 35 11/06/18 05:03 77 16 35 11/06/18 04:00 98.2 84 18 119/65 (83) 97 11/06/18 04:00 35 11/06/18 04:00 Mechanical Ventilator 11/06/18 04:00 77 11/06/18 03:15 78 14 35 11/06/18 01:13 82 18 35 11/06/18 00:00 Mechanical Ventilator 11/06/18 00:00 98.5 80 14 126/76 (93) 99 11/06/18 00:00 77 11/05/18 23:06 78 17 35 11/05/18 21:06 85 13 35 11/05/18 20:00 35 11/05/18 20:00 Mechanical Ventilator 11/05/18 20:00 98.6 82 17 134/72 (92) 100 11/05/18 20:00 98 11/05/18 19:08 76 14 35 11/05/18 17:21 86 21 35 11/05/18 16:00 98.6 84 16 124/74 (91) 99 11/05/18 16:00 35 11/05/18 16:00 86 11/05/18 16:00 Mechanical Ventilator 11/05/18 14:55 84 20 35 Intake and Output 11/05/18 11/06/18 19:00 07:00 Intake Total 130 ml 955 ml Output Total 300 ml 350 ml Balance -170 ml 605 ml Intake Free Water 110 ml Tube Feeding 130 ml 845 ml Output Urine Total 300 ml 350 ml # Bowel Movements 3 Laboratory Tests 11/05/18 18:00: Sickle Cell Screen Negative, Iron Level 49L, Total Iron Binding Capacity 174L, Percent Iron Saturation 28, Unsaturated Iron Binding 125, Ferritin 403H, Lactate Dehydrogenase 152 11/06/18 04:30: White Blood Count 8.9, Red Blood Count 3.28L, Hemoglobin 9.0L, Hematocrit 28.5L , Mean Corpuscular Volume 87, Mean Corpuscular Hemoglobin 27.6, Mean Corpuscular Hemoglobin Concent 31.7L, Red Cell Distribution Width 14.9H, Platelet Count 267, Mean Platelet Volume 6.4L, Neutrophils (%) (Auto) 67.2, Lymphocytes (%) (Auto) 18.4L, Monocytes (%) (Auto) 9.4, Eosinophils (%) (Auto) 4.4H, Basophils (%) (Auto) 0.6, Sodium Level 139, Potassium Level 3.9, Chloride Level 104, Carbon Dioxide Level 25, Anion Gap 10, Blood Urea Nitrogen 28H, Creatinine 1.0, Estimat Glomerular Filtration Rate > 60, Glucose Level 113H, Calcium Level 9.3, Phosphorus Level 3.1, Magnesium Level 1.9, Total Bilirubin 0.2, Aspartate Amino Transf (AST/SGOT) 23, Alanine Aminotransferase (ALT/SGPT) 29, Alkaline Phosphatase 116, Total Protein 7.3, Albumin 2.5L, Globulin 4.8, Albumin/Globulin Ratio 0.5L Height (Feet): 5 Height (Inches): 3.00 Weight (Pounds): 134 General Appearance: no apparent distress Cardiovascular: normal rate Respiratory/Chest: decreased breath sounds Abdomen: soft, distended Objective no change Sav Salvador MD Nov 06, 2018 14:12
[2018-11-06] MEDS ORDERED: NS 275ml ONE ×2 (15:52→18:13)
[2018-11-06] MEDS ORDERED: Sterile Water Irrig 1000ml IRRIG ONE (15:52)
[2018-11-06] MEDS ORDERED: Tubing IV Blood Pump IV ONE (15:52)
[2018-11-06] MEDS ORDERED: Tubing IV Secondary IV ONE ×2 (15:52→18:13)
[2018-11-06 16:00] VITALS: BP 137/82
--- NOTE | 2018-11-06 17:08 | Consultation ---
History of Present Illness General Date patient seen: Nov 06, 2018 Chief Complaint: Abnormal Labs Present Illness Allergies: Coded Allergies: NO KNOWN DRUG ALLERGIES (Verified Allergy, Unknown, 09/11/16) Medication History Scheduled Docusate Sodium* (Docusate Sodium*), 100 MG GT DAILY, (Reported) Levothyroxine Sodium* (Levothyroxine Sodium*), 50 MCG GT DAILY, (Reported) Magnesium Hydroxide* (Milk Of Magnesia*), 30 ML GT HS, (Reported) Multivitamin Liquid* (Multi-Delyn*), 15 ML GT DAILY, (Reported) Omeprazole (Omeprazole), 20 MG ORAL DAILY, (Reported) Sucralfate* (Carafate*), 1 GM GT FOUR TIMES A DAY, (Reported) Scheduled PRN Acetaminophen (Acetaminophen), 640 MG GT Q4HR PRN for Prn Headache/Temp > 101, ( Reported) Bisacodyl (Dulcolax), 10 MG RC NEEDED PRN for IF MOM INEFFECTIVE, (Reported) Na Phos,M-B/Na Phos,Di-Ba* (Fleet Enema*), 133 ML RECTAL QOD PRN for IF DUCOLAX INEFFETIVE, (Reported) Miscellaneous Medications Unable to Obtain Medications (Unable To Obtain Meds), (Reported) Patient History Healthcare decision maker Sofia Morrow Resuscitation status Full Code Advanced Directive on File Physical Exam Last 24 Hour Vital Signs Date Time Temp Pulse Resp B/P (MAP) Pulse Ox O2 Delivery O2 Flow Rate FiO2 11/06/18 15:17 76 16 35 11/06/18 13:16 74 19 35 11/06/18 12:00 98.1 77 18 140/76 (97) 98 11/06/18 12:00 35 11/06/18 12:00 Mechanical Ventilator 11/06/18 12:00 76 11/06/18 11:25 77 17 35 11/06/18 09:20 75 19 35 11/06/18 08:00 Mechanical Ventilator 11/06/18 08:00 76 11/06/18 08:00 97.9 79 16 131/75 (93) 97 11/06/18 08:00 35 11/06/18 07:27 76 17 35 11/06/18 05:03 77 16 35 11/06/18 04:00 98.2 84 18 119/65 (83) 97 11/06/18 04:00 35 11/06/18 04:00 Mechanical Ventilator 11/06/18 04:00 77 11/06/18 03:15 78 14 35 11/06/18 01:13 82 18 35 11/06/18 00:00 Mechanical Ventilator 11/06/18 00:00 98.5 80 14 126/76 (93) 99 11/06/18 00:00 77 11/05/18 23:06 78 17 35 11/05/18 21:06 85 13 35 11/05/18 20:00 35 11/05/18 20:00 Mechanical Ventilator 11/05/18 20:00 98.6 82 17 134/72 (92) 100 11/05/18 20:00 98 11/05/18 19:08 76 14 35 11/05/18 17:21 86 21 35 Intake and Output 11/05/18 11/06/18 19:00 07:00 Intake Total 130 ml 955 ml Output Total 300 ml 350 ml Balance -170 ml 605 ml Intake Free Water 110 ml Tube Feeding 130 ml 845 ml Output Urine Total 300 ml 350 ml # Bowel Movements 3 Laboratory Tests Test 11/05/18 18:00 11/06/18 04:30 11/06/18 15:36 Sickle Cell Screen Negative (Negative) Iron Level 49 ug/dL (50-175) L Total Iron Binding Capacity 174 ug/dL (250-450) L Percent Iron Saturation 28 % (15-50) Unsaturated Iron Binding 125 ug/dL (112-346) Ferritin 403 NG/ML (8-388) H Lactate Dehydrogenase 152 U/L (81-234) White Blood Count 8.9 K/UL (4.8-10.8) Red Blood Count 3.28 M/UL (4.70-6.10) L Hemoglobin 9.0 G/DL (14.2-18.0) L Hematocrit 28.5 % (42.0-52.0) L Mean Corpuscular Volume 87 FL (80-99) Mean Corpuscular Hemoglobin 27.6 PG (27.0-31.0) Mean Corpuscular Hemoglobin Concent 31.7 G/DL (32.0-36.0) L Red Cell Distribution Width 14.9 % (11.6-14.8) H Platelet Count 267 K/UL (150-450) Mean Platelet Volume 6.4 FL (6.5-10.1) L Neutrophils (%) (Auto) 67.2 % (45.0-75.0) Lymphocytes (%) (Auto) 18.4 % (20.0-45.0) L Monocytes (%) (Auto) 9.4 % (1.0-10.0) Eosinophils (%) (Auto) 4.4 % (0.0-3.0) H Basophils (%) (Auto) 0.6 % (0.0-2.0) Sodium Level 139 MMOL/L (136-145) Potassium Level 3.9 MMOL/L (3.5-5.1) Chloride Level 104 MMOL/L (98-107) Carbon Dioxide Level 25 MMOL/L (21-32) Anion Gap 10 mmol/L (5-15) Blood Urea Nitrogen 28 mg/dL (7-18) H Creatinine 1.0 MG/DL (0.55-1.30) Estimat Glomerular Filtration Rate > 60 mL/min (>60) Glucose Level 113 MG/DL (74-106) H Calcium Level 9.3 MG/DL (8.5-10.1) Phosphorus Level 3.1 MG/DL (2.5-4.9) Magnesium Level 1.9 MG/DL (1.8-2.4) Total Bilirubin 0.2 MG/DL (0.2-1.0) Aspartate Amino Transf (AST/SGOT) 23 U/L (15-37) Alanine Aminotransferase (ALT/SGPT) 29 U/L (12-78) Alkaline Phosphatase 116 U/L (46-116) Total Protein 7.3 G/DL (6.4-8.2) Albumin 2.5 G/DL (3.4-5.0) L Globulin 4.8 g/dL Albumin/Globulin Ratio 0.5 (1.0-2.7) L Stool Occult Blood Pending Height (Feet): 5 Height (Inches): 3.00 Weight (Pounds): 134 Medications Current Medications Medications (Trade) Dose Ordered Sig/Wanda Route PRN Reason Start Time Stop Time Status Last Admin Dose Admin Acetaminophen (Tylenol) 650 mg Q4H PRN ORAL FEVER 10/28/18 18:30 11/27/18 18:29 Albuterol/ Ipratropium (Albuterol/ Ipratropium) 3 ml Q4H PRN HHN Shortness of Breath 11/02/18 10:30 11/07/18 10:29 Chlorhexidine Gluconate (Jasmin-Hex 2%) 1 applic DAILY@2000 TOPIC 10/29/18 20:00 11/28/18 19:59 11/05/18 20:52 Dextrose (Dextrose 50%) 25 ml Q30M PRN IV Hypoglycemia 10/30/18 15:00 11/29/18 14:53 Dextrose (Dextrose 50%) 50 ml Q30M PRN IV hypoglycemia 10/30/18 15:00 11/29/18 14:59 Heparin Sodium (Porcine) (Heparin 5000 units/ml) 5,000 units EVERY 12 HOURS SUBQ 10/28/18 21:00 11/27/18 20:59 11/06/18 10:26 Levothyroxine Sodium (Synthroid) 75 mcg DAILY GT 11/03/18 09:00 12/03/18 08:59 11/06/18 10:21 Lorazepam (Ativan 2mg/ml 1ml) 2 mg Q2H PRN IV For Anxiety 11/02/18 10:30 11/09/18 10:29 Morphine Sulfate (Morphine Sulfate) 4 mg Q4H PRN IVP Severe Pain (Pain Scale 7-10) 11/02/18 10:30 11/09/18 10:29 Ondansetron HCl (Zofran) 4 mg Q6H PRN IVP Nausea & Vomiting 10/28/18 18:30 11/27/18 18:29 Pantoprazole (Protonix) 40 mg DAILY IV 10/29/18 09:00 11/28/18 08:59 11/06/18 10:21 Polyethylene Glycol (Miralax) 17 gm DAILYPRN PRN ORAL Constipation 10/28/18 18:30 11/27/18 18:29 Sucralfate (Carafate) 1 gm FOUR TIMES A DAY GT 10/28/18 21:00 11/27/18 20:59 11/06/18 13:12 Assessment/Plan Assessment/Plan HEMATOLOGY-ONCOLOGY CONSULTATION REFERRING MD: Gato Viveros REASON FOR CONSULT: Leukocytosis, anemia DOS: 11/06/18 HISTORY OF PRESENT ILLNESS: 5-y old male admitted for GI bleed, has history of trach and PEG, admitted for leukocytosis and hyperkalemia, cannot obtain history from the patient. Hematology services consulted for the evaluation of anemia and leukocytosis. Anemia w/u has been ordered. PAST MEDICAL HISTORY: Constipation and chronic respiratory failure, hypothyroidism, constipation, GERD , history of pyelonephritis, history of hypertension, malnutrition, history of C. diff, history of dysphagia, history of esophagitis, history of GI bleed, history of UTI, history of anemia. PAST SURGICAL HISTORY: Tracheostomy and PEG. Cannot get any more history from the patient. ALLERGIES: No known allergies. FAMILY HISTORY: Unable to obtain. SOCIAL HISTORY: Unable to obtain. REVIEW OF SYSTEMS: Unable to obtain. PHYSICAL EXAMINATION: VITAL SIGNS: Have been reviewed HEENT: Trach site is intact. CHEST: Bibasilar rales CARDIOVASCULAR: Regular rate and rhythm. GASTROINTESTINAL: Positive bowel sounds. G-tube site is intact. EXTREMITIES: + edema. NEUROLOGICAL: The patient does not follow neurological exam. Reflexes equal on both sides. No organomegaly. Laboratory Tests Test 11/05/18 18:00 11/06/18 04:30 11/06/18 15:36 Sickle Cell Screen Negative (Negative) Iron Level 49 ug/dL (50-175) L Total Iron Binding Capacity 174 ug/dL (250-450) L Percent Iron Saturation 28 % (15-50) Unsaturated Iron Binding 125 ug/dL (112-346) Ferritin 403 NG/ML (8-388) H Lactate Dehydrogenase 152 U/L (81-234) White Blood Count 8.9 K/UL (4.8-10.8) Red Blood Count 3.28 M/UL (4.70-6.10) L Hemoglobin 9.0 G/DL (14.2-18.0) L Hematocrit 28.5 % (42.0-52.0) L Mean Corpuscular Volume 87 FL (80-99) Mean Corpuscular Hemoglobin 27.6 PG (27.0-31.0) Mean Corpuscular Hemoglobin Concent 31.7 G/DL (32.0-36.0) L Red Cell Distribution Width 14.9 % (11.6-14.8) H Platelet Count 267 K/UL (150-450) Mean Platelet Volume 6.4 FL (6.5-10.1) L Neutrophils (%) (Auto) 67.2 % (45.0-75.0) Lymphocytes (%) (Auto) 18.4 % (20.0-45.0) L Monocytes (%) (Auto) 9.4 % (1.0-10.0) Eosinophils (%) (Auto) 4.4 % (0.0-3.0) H Basophils (%) (Auto) 0.6 % (0.0-2.0) Sodium Level 139 MMOL/L (136-145) Potassium Level 3.9 MMOL/L (3.5-5.1) Chloride Level 104 MMOL/L (98-107) Carbon Dioxide Level 25 MMOL/L (21-32) Anion Gap 10 mmol/L (5-15) Blood Urea Nitrogen 28 mg/dL (7-18) H Creatinine 1.0 MG/DL (0.55-1.30) Estimat Glomerular Filtration Rate > 60 mL/min (>60) Glucose Level 113 MG/DL (74-106) H Calcium Level 9.3 MG/DL (8.5-10.1) Phosphorus Level 3.1 MG/DL (2.5-4.9) Magnesium Level 1.9 MG/DL (1.8-2.4) Total Bilirubin 0.2 MG/DL (0.2-1.0) Aspartate Amino Transf (AST/SGOT) 23 U/L (15-37) Alanine Aminotransferase (ALT/SGPT) 29 U/L (12-78) Alkaline Phosphatase 116 U/L (46-116) Total Protein 7.3 G/DL (6.4-8.2) Albumin 2.5 G/DL (3.4-5.0) L Globulin 4.8 g/dL Albumin/Globulin Ratio 0.5 (1.0-2.7) L Stool Occult Blood Pending Last 24 Hour Vital Signs Date Time Temp Pulse Resp B/P (MAP) Pulse Ox O2 Delivery O2 Flow Rate FiO2 11/06/18 15:17 76 16 35 11/06/18 13:16 74 19 35 11/06/18 12:00 98.1 77 18 140/76 (97) 98 11/06/18 12:00 35 11/06/18 12:00 Mechanical Ventilator 11/06/18 12:00 76 11/06/18 11:25 77 17 35 11/06/18 09:20 75 19 35 11/06/18 08:00 Mechanical Ventilator 11/06/18 08:00 76 11/06/18 08:00 97.9 79 16 131/75 (93) 97 11/06/18 08:00 35 11/06/18 07:27 76 17 35 11/06/18 05:03 77 16 35 11/06/18 04:00 98.2 84 18 119/65 (83) 97 11/06/18 04:00 35 11/06/18 04:00 Mechanical Ventilator 11/06/18 04:00 77 11/06/18 03:15 78 14 35 11/06/18 01:13 82 18 35 11/06/18 00:00 Mechanical Ventilator 11/06/18 00:00 98.5 80 14 126/76 (93) 99 11/06/18 00:00 77 11/05/18 23:06 78 17 35 11/05/18 21:06 85 13 35 11/05/18 20:00 35 11/05/18 20:00 Mechanical Ventilator 11/05/18 20:00 98.6 82 17 134/72 (92) 100 11/05/18 20:00 98 11/05/18 19:08 76 14 35 11/05/18 17:21 86 21 35 Current Medications Medications (Trade) Dose Ordered Sig/Wanda Route PRN Reason Start Time Stop Time Status Last Admin Dose Admin Acetaminophen (Tylenol) 650 mg Q4H PRN ORAL FEVER 10/28/18 18:30 11/27/18 18:29 Albuterol/ Ipratropium (Albuterol/ Ipratropium) 3 ml Q4H PRN HHN Shortness of Breath 11/02/18 10:30 11/07/18 10:29 Chlorhexidine Gluconate (Jasmin-Hex 2%) 1 applic DAILY@2000 TOPIC 10/29/18 20:00 11/28/18 19:59 11/05/18 20:52 Dextrose (Dextrose 50%) 25 ml Q30M PRN IV Hypoglycemia 10/30/18 15:00 11/29/18 14:53 Dextrose (Dextrose 50%) 50 ml Q30M PRN IV hypoglycemia 10/30/18 15:00 11/29/18 14:59 Heparin Sodium (Porcine) (Heparin 5000 units/ml) 5,000 units EVERY 12 HOURS SUBQ 10/28/18 21:00 11/27/18 20:59 11/06/18 10:26 Levothyroxine Sodium (Synthroid) 75 mcg DAILY GT 11/03/18 09:00 12/03/18 08:59 11/06/18 10:21 Lorazepam (Ativan 2mg/ml 1ml) 2 mg Q2H PRN IV For Anxiety 11/02/18 10:30 11/09/18 10:29 Morphine Sulfate (Morphine Sulfate) 4 mg Q4H PRN IVP Severe Pain (Pain Scale 7-10) 11/02/18 10:30 11/09/18 10:29 Ondansetron HCl (Zofran) 4 mg Q6H PRN IVP Nausea & Vomiting 10/28/18 18:30 11/27/18 18:29 Pantoprazole (Protonix) 40 mg DAILY IV 10/29/18 09:00 11/28/18 08:59 11/06/18 10:21 Polyethylene Glycol (Miralax) 17 gm DAILYPRN PRN ORAL Constipation 10/28/18 18:30 11/27/18 18:29 Sucralfate (Carafate) 1 gm FOUR TIMES A DAY GT 10/28/18 21:00 11/27/18 20:59 11/06/18 13:12 ASSESSMENT AND RECOMMENDATIONS # Anemia of chronic disease due to underlying chronic medical issues, multifactorial --> Anemia w/u has been ordered and reviewed and c/w acd --> No evidence of hemolysis is noted, peripheral smear has been reviewed. --> Hgb goal >7. Transfuse prn. --> Epogen or iron at this time is not particularly indicated # Leukocytosis. Likely related to underlying infection versus reactive process. --> Peripheral has been reviewed and no abnml cells noted at moment --> Medications have been reviewed --> Imaging has been reviewed. CXR shows Suboptimal positioning. No interval consolidation, overt edema or other acute cardiopulmonary findings. --> Blood cultures and urine cultures are pending. --> Has been started on abx, empiric treatment # Upper GI vomiting bleed in prior admission --> currently appears to have resolved # Trach and PEG. --> chronic # Hyperkalemia --> as per renal GREATLY APPRECIATE CONSULTATION. Nikos Nath MD Nov 06, 2018 17:08
--- NOTE | 2018-11-06 17:32 | NUR ---
CASE MANAGEMENT: REVIEW 11/06/2018 SI: RESP FAILURE TRACH/VENT DEPENDENT, ANEMIA T. 98.1 HR 77 RR 18 B/P 140/76 SATS 98% ON MECH VENT FiO2 35 BUN 28 GLU 113 IS: PROTONIX IV HEPARIN SUBQ CARAFATE GT QID STEP DOWN STATUS
--- NOTE | 2018-11-06 19:00 | NUR ---
HAND-OFF: Report given to .KRISTEN HARTLEY.
--- NOTE | 2018-11-06 19:50 | NUR ---
NURSE NOTES: Received report from Chauncey Valle RN. Patient is asleep in bed, obtunded with flat affect. library monitor shows sinus rhythm. No s/s of acute distress noted. Saturating well on trach-vent settings: Portex 8, SIMV 8, Vt 600, FiO2 35%, PEEP 5, and pressure support of 8. Receiving Jevity 1.2 @ 65 cc/hr via GT, tolerating well. Right upper arm PICC line in place. Bed locked in lowest position with padded side rails up x3. Call light left within reach. Will continue to monitor.
[2018-11-06 20:00] VITALS: BP 135/71
[2018-11-06] MEDS: Dyna-Hex 2% Top Sol 2oz TOPIC SCH (21:10)
[2018-11-07] VITALS: BP 114/71
[2018-11-07 04:00] VITALS: BP 144/81
[2018-11-07 05:03] LABS: BASOPHILS % (AUTO) 1.2 % (0.0-2.0); EOSINOPHILS % (AUTO) 3.5 % (0.0-3.0); HEMATOCRIT 29.3 % (42.0-52.0); HEMOGLOBIN 9.4 G/DL (14.2-18.0); LYMPHOCYTES % (AUTO) 17.8 % (20.0-45.0); MEAN CORPUSCULAR VOLUME 88 FL (80-99); MONOCYTES % (AUTO) 9.6 % (1.0-10.0); NEUTROPHILS % (AUTO) 67.9 % (45.0-75.0); PLATELET COUNT 260 K/UL (150-450); RED BLOOD COUNT 3.32 M/UL (4.70-6.10); RED CELL DISTRIBUTION WIDTH 14.8 % (11.6-14.8); WHITE BLOOD COUNT 11.7 K/UL (4.8-10.8)
[2018-11-07 05:13] LABS: PHOSPHORUS 3.6 MG/DL (2.5-4.9)
[2018-11-07 05:27] LABS: ALANINE AMINOTRANSFERASE 29 U/L (12-78); ALBUMIN 2.4 G/DL (3.4-5.0); ALBUMIN/GLOBULIN RATIO 0.5 (1.0-2.7); ALKALINE PHOSPHATASE 120 U/L (46-116); ANION GAP 7 mmol/L (5-15); ASPARTATE AMINO TRANSFERASE 35 U/L (15-37); BILIRUBIN,TOTAL 0.3 MG/DL (0.2-1.0); BLOOD UREA NITROGEN 27 mg/dL (7-18); CALCIUM 9.1 MG/DL (8.5-10.1); CARBON DIOXIDE 23 MMOL/L (21-32); CHLORIDE 103 MMOL/L (98-107); SODIUM 133 MMOL/L (136-145)
--- NOTE | 2018-11-07 06:13 | NUR ---
NURSE NOTES: Made Dr. Joelle MD aware of WBC level trending up. Awaiting response.
--- NOTE | 2018-11-07 06:55 | NUR ---
ESPIRATORY NOTE: Received pt on SIMV 8-600ml-35%, PEEP +5, PS 8. Pt is trach-dependent w/ a cuffed, Portex 8 tube. Pt obtunded. B/S nora. clear diminished, sxn moderate amounts of thin frothy white owens secretions without incidents. Vent plugged into red outlet, ambubag at bedside, alarms are set and audible. Pt in no apparent distress at this time. Will continue plan of care.
--- NOTE | 2018-11-07 07:10 | NUR ---
NURSE NOTES: RECEIVED BED SIDE REPORT FROM FREDY CUBE CUTTER OF NOC SHIFT.RECEIVED PT WITH HOB ELEVATED 45 DEGREE,SEEMS OBTUNDED TRACH TO VENT RESTING COMFORTABLY.PT TOLERATING WELL CURRENT VENT SETTINGS.PT WITH TRACH PATENT INTACT PORTEX # 8 WELL SECURED ,SIMV 8.TV 600,PEEP8,FIO2@ 35%.PT RECEIVING GTF GEVITY 1.2@ 65 CC/HRS,NO RESIDUAL NOTED,TOLERATING WELL.FULL BODY ASSESSMENT DONE.PT REPOSITIONED Q2HRS TO PROVIDE COMFORT AND TO PREVENT FURTHER SKIN BREAK DOWN.NO ACUTE DISTRESS NOTED AT THIS TIME.WILL CONT TO MONITOR.
--- NOTE | 2018-11-07 07:18 | NUR ---
HAND-OFF: Report given to Kirsten De La Torre RN.
[2018-11-07 08:00] VITALS: BP 129/66
[2018-11-07] MEDS: Sucralfate 1gm tab GT SCH ×4 (09:33→21:43)
[2018-11-07] MEDS: Pantoprazole Inj IV SCH (09:33)
[2018-11-07] MEDS: Heparin 5000 units/ml inj SUBQ SCH ×2 (09:43→21:45)
--- NOTE | 2018-11-07 09:56 | Pulmonolgy Critical Care Note ---
Critical Care - Asmt/Plan Problems: (1) Sepsis (2) Respiratory failure, ydvkw-ia-qghjich (3) Hypothyroidism (4) MDR Acinetobacter baumannii infection (5) Alzheimer's dementia (6) Severe protein-calorie malnutrition (7) Feeding by G-tube Respiratory: monitor respiratory rate, adjust FIO2, CXR Cardiac: continue to monitor HR/BP Renal: check electrolytes Infectious Disease: check cultures Gastrointestinal: continue feedings/current rate Endocrine: monitor blood sugar, check HgA1C Hematologic: transfuse if hgb<8.5 Neurologic: PRN Morphine, keep patient comfortable Prophylaxis: Protonix Notes Reviewed: manager food beverage, 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 with: nurses, case management social workermanager food beverage - Objective Last 24 Hour Vital Signs Date Time Temp Pulse Resp B/P (MAP) Pulse Ox O2 Delivery O2 Flow Rate FiO2 11/07/18 08:50 78 20 35 11/07/18 06:55 81 20 35 11/07/18 05:01 85 30 35 11/07/18 04:00 Mechanical Ventilator 11/07/18 04:00 35 11/07/18 04:00 98.3 80 24 144/81 (102) 95 11/07/18 03:38 74 11/07/18 02:56 83 20 35 11/07/18 01:21 75 19 35 11/07/18 00:00 Mechanical Ventilator 11/07/18 00:00 98.9 76 20 114/71 (85) 99 11/06/18 23:56 76 11/06/18 22:44 76 24 35 11/06/18 21:05 77 23 35 11/06/18 20:00 98.8 81 24 135/71 (92) 100 11/06/18 20:00 35 11/06/18 20:00 Mechanical Ventilator 11/06/18 19:01 76 11/06/18 19:00 76 20 35 11/06/18 16:33 79 25 35 11/06/18 16:00 35 11/06/18 16:00 98.2 85 22 137/82 (100) 100 11/06/18 16:00 Mechanical Ventilator 11/06/18 16:00 82 11/06/18 15:17 76 16 35 11/06/18 13:16 74 19 35 11/06/18 12:00 98.1 77 18 140/76 (97) 98 11/06/18 12:00 35 11/06/18 12:00 Mechanical Ventilator 11/06/18 12:00 76 11/06/18 11:25 77 17 35 Status: awake Condition: critical Neck: full ROM Heart: HR/BP stable Abdomen: soft, active bowel sounds Extremities: no C/C/E Decubiti: location Micro: Microbiology Date/Time Source Procedure Growth Status 11/06/18 15:36 Stool Clostridium difficile Toxin Assay - Final Complete Critical Care - Subjective ROS Limited/Unobtainable: Yes Condition: critical FI02: 35 Vent Support Breath Rate: 8 Vent Support Mode: IMV/SIMV Vent Tidal Volume: 600 Sputum Amount: Small PEEP: 5.0 PIP: 23 Tube Feeding Amount: 65 I&O: Intake and Output 11/06/18 11/07/18 19:00 07:00 Intake Total 1108.4 ml 940 ml Output Total 1050 ml 300 ml Balance 58.4 ml 640 ml Intake Free Water 150 ml 225 ml IV Total 113.4 ml Tube Feeding 845 ml 715 ml Output Urine Total 1050 ml 300 ml # Bowel Movements 2 CXR: no change Labs: Laboratory Tests Test 11/06/18 15:36 11/07/18 04:00 Stool Occult Blood Pending White Blood Count 11.7 K/UL (4.8-10.8) H Red Blood Count 3.32 M/UL (4.70-6.10) L Hemoglobin 9.4 G/DL (14.2-18.0) L Hematocrit 29.3 % (42.0-52.0) L Mean Corpuscular Volume 88 FL (80-99) Mean Corpuscular Hemoglobin 28.3 PG (27.0-31.0) Mean Corpuscular Hemoglobin Concent 32.0 G/DL (32.0-36.0) Red Cell Distribution Width 14.8 % (11.6-14.8) Platelet Count 260 K/UL (150-450) Mean Platelet Volume 6.9 FL (6.5-10.1) Neutrophils (%) (Auto) 67.9 % (45.0-75.0) Lymphocytes (%) (Auto) 17.8 % (20.0-45.0) L Monocytes (%) (Auto) 9.6 % (1.0-10.0) Eosinophils (%) (Auto) 3.5 % (0.0-3.0) H Basophils (%) (Auto) 1.2 % (0.0-2.0) Sodium Level 133 MMOL/L (136-145) L Potassium Level 5.0 MMOL/L (3.5-5.1) Chloride Level 103 MMOL/L (98-107) Carbon Dioxide Level 23 MMOL/L (21-32) Anion Gap 7 mmol/L (5-15) Blood Urea Nitrogen 27 mg/dL (7-18) H Creatinine 1.0 MG/DL (0.55-1.30) Estimat Glomerular Filtration Rate > 60 mL/min (>60) Glucose Level 103 MG/DL (74-106) Calcium Level 9.1 MG/DL (8.5-10.1) Phosphorus Level 3.6 MG/DL (2.5-4.9) Magnesium Level 1.9 MG/DL (1.8-2.4) Total Bilirubin 0.3 MG/DL (0.2-1.0) Aspartate Amino Transf (AST/SGOT) 35 U/L (15-37) Alanine Aminotransferase (ALT/SGPT) 29 U/L (12-78) Alkaline Phosphatase 120 U/L (46-116) H Total Protein 7.2 G/DL (6.4-8.2) Albumin 2.4 G/DL (3.4-5.0) L Globulin 4.8 g/dL Albumin/Globulin Ratio 0.5 (1.0-2.7) L Huma Keating MD Nov 07, 2018 09:56
--- NOTE | 2018-11-07 11:55 | NUR ---
RESPIRATORY NOTE: Endorsed by RT Mikel that he changed the setting to AC mode: 16-600ml-35%FiO2- peep of 5 due to resp distress. Pt was desat to low 80%, tachypneic RR> 30pnm, low Vt on SIMV. Pt is stable at this time, saturation went up to 98%, RR at 16, expected Vt delivered.RN made aware. Reported to ALEXANDRA Gabriel about the vent setting changed and ask for MD's order. Awaiting for MD's new order. Will keep pt on AC mode in the mean time to prevent resp distress, and continue to monitor pt closely.
[2018-11-07 12:00] VITALS: BP 147/84
--- NOTE | 2018-11-07 12:11 | Nephrology Progress Note ---
Assessment/Plan Problem List: (1) Acute renal failure (2) Sepsis (3) Severe protein-calorie malnutrition (4) Hypothyroidism Assessment (1) Tracheostomy dependence Respiratory failure, kfarw-hi-waocxpk (2) Sepsis , Leukocytosis (3) GI bleed (4) Acute renal failure, Cr 1.4 (5) HypoThyroidism (6) Alzheimer's (7) Severe protein-calorie malnutrition (8) Feeding by G-tube Plan CHANGE PROTONIX TO PREVACID GT Antibiotics K supplement as needed pulm support monitor renal parameters Avoid Nephrotoxics check H&H Subjective ROS Limited/Unobtainable: Yes Objective Objective Last 24 Hour Vital Signs Date Time Temp Pulse Resp B/P (MAP) Pulse Ox O2 Delivery O2 Flow Rate FiO2 11/07/18 10:53 82 20 35 11/07/18 08:50 78 20 35 11/07/18 08:00 78 11/07/18 08:00 Mechanical Ventilator 11/07/18 08:00 98.4 77 18 129/66 (87) 96 11/07/18 08:00 35 11/07/18 06:55 81 20 35 11/07/18 05:01 85 30 35 11/07/18 04:00 Mechanical Ventilator 11/07/18 04:00 35 11/07/18 04:00 98.3 80 24 144/81 (102) 95 11/07/18 03:38 74 11/07/18 02:56 83 20 35 11/07/18 01:21 75 19 35 11/07/18 00:00 Mechanical Ventilator 11/07/18 00:00 98.9 76 20 114/71 (85) 99 11/06/18 23:56 76 11/06/18 22:44 76 24 35 11/06/18 21:05 77 23 35 11/06/18 20:00 98.8 81 24 135/71 (92) 100 11/06/18 20:00 35 11/06/18 20:00 Mechanical Ventilator 11/06/18 19:01 76 11/06/18 19:00 76 20 35 11/06/18 16:33 79 25 35 11/06/18 16:00 35 11/06/18 16:00 98.2 85 22 137/82 (100) 100 11/06/18 16:00 Mechanical Ventilator 11/06/18 16:00 82 11/06/18 15:17 76 16 35 2/27/19 13:16 74 19 35 Intake and Output 11/06/18 11/07/18 19:00 07:00 Intake Total 1108.4 ml 1005 ml Output Total 1050 ml 300 ml Balance 58.4 ml 705 ml Intake Free Water 150 ml 225 ml IV Total 113.4 ml Tube Feeding 845 ml 780 ml Output Urine Total 1050 ml 300 ml # Bowel Movements 2 Laboratory Tests 11/06/18 15:36: Stool Occult Blood [Pending] 11/07/18 04:00: White Blood Count 11.7H, Red Blood Count 3.32L, Hemoglobin 9.4L, Hematocrit 29.3L, Mean Corpuscular Volume 88, Mean Corpuscular Hemoglobin 28.3, Mean Corpuscular Hemoglobin Concent 32.0, Red Cell Distribution Width 14.8, Platelet Count 260, Mean Platelet Volume 6.9, Neutrophils (%) (Auto) 67.9, Lymphocytes (% ) (Auto) 17.8L, Monocytes (%) (Auto) 9.6, Eosinophils (%) (Auto) 3.5H, Basophils (%) (Auto) 1.2, Sodium Level 133L, Potassium Level 5.0, Chloride Level 103, Carbon Dioxide Level 23, Anion Gap 7, Blood Urea Nitrogen 27H, Creatinine 1.0, Estimat Glomerular Filtration Rate > 60, Glucose Level 103, Calcium Level 9.1, Phosphorus Level 3.6, Magnesium Level 1.9, Total Bilirubin 0.3, Aspartate Amino Transf (AST/SGOT) 35, Alanine Aminotransferase (ALT/SGPT) 29, Alkaline Phosphatase 120H, Total Protein 7.2, Albumin 2.4L, Globulin 4.8, Albumin/Globulin Ratio 0.5L Height (Feet): 5 Height (Inches): 3.00 Weight (Pounds): 134 General Appearance: no apparent distress Cardiovascular: normal rate Respiratory/Chest: decreased breath sounds Abdomen: distended Objective no change Sav Salvador MD Nov 07, 2018 12:11
--- NOTE | 2018-11-07 12:12 | NUR ---
*-* INSURANCE *-* ALL CLINICALS, REVIEWS AND INTERQUAL HAVE BEEN FAXED: [id number] CIERRA:DANA P:[phone] F:[phone]
[2018-11-07] MEDS ORDERED: NaCl 3% 500ml 250 ML IV ONE (14:00)
--- NOTE | 2018-11-07 14:59 | General Progress Note ---
Assessment/Plan Problem List: (1) Acute renal failure ICD Codes: N17.9 - Acute kidney failure, unspecified SNOMED: 98945655 (2) Sepsis ICD Codes: A41.9 - Sepsis, unspecified organism SNOMED: 19225725 Qualifiers: Qualified Codes: A41.9 - Sepsis, unspecified organism (3) Severe protein-calorie malnutrition ICD Codes: E43 - Unspecified severe protein-calorie malnutrition SNOMED: 350676171 (4) Feeding by G-tube ICD Codes: Z93.1 - Gastrostomy status SNOMED: 877265436, 803899751 (5) Respiratory failure, [id number] ICD Codes: J96.20 - Respiratory failure, gdxim-[id number] SNOMED: 22013663 (6) UTI (urinary tract infection) ICD Codes: N39.0 - Urinary tract infection, site not specified SNOMED: 59582773 Qualifiers: Qualified Codes: N39.0 - Urinary tract infection, site not specified (7) Alzheimer's dementia ICD Codes: G30.9 - Alzheimer's disease, unspecified SNOMED: 75823674 (8) Anemia ICD Codes: D64.9 - Anemia, unspecified SNOMED: 648531312 Status: unchanged Assessment/Plan vent abx cbc bmp am transfuse prn, dc plan if clear Subjective Constitutional: Reports: weakness Allergies: Coded Allergies: NO KNOWN DRUG ALLERGIES (Verified Allergy, Unknown, 09/11/16) All Systems: reviewed and negative except above Subjective trach vent altered Objective Last 24 Hour Vital Signs Date Time Temp Pulse Resp B/P (MAP) Pulse Ox O2 Delivery O2 Flow Rate FiO2 11/07/18 13:45 88 17 35 11/07/18 12:00 Mechanical Ventilator 11/07/18 12:00 98.2 72 18 147/84 (105) 100 11/07/18 12:00 35 11/07/18 11:55 77 16 35 11/07/18 10:53 82 20 35 11/07/18 08:50 78 20 35 11/07/18 08:00 78 11/07/18 08:00 Mechanical Ventilator 11/07/18 08:00 98.4 77 18 129/66 (87) 96 11/07/18 08:00 35 11/07/18 06:55 81 20 35 11/07/18 05:01 85 30 35 11/07/18 04:00 Mechanical Ventilator 11/07/18 04:00 35 11/07/18 04:00 98.3 80 24 144/81 (102) 95 11/07/18 03:38 74 11/07/18 02:56 83 20 35 11/07/18 01:21 75 19 35 11/07/18 00:00 Mechanical Ventilator 11/07/18 00:00 98.9 76 20 114/71 (85) 99 11/06/18 23:56 76 11/06/18 22:44 76 24 35 11/06/18 21:05 77 23 35 11/06/18 20:00 98.8 81 24 135/71 (92) 100 11/06/18 20:00 35 11/06/18 20:00 Mechanical Ventilator 11/06/18 19:01 76 11/06/18 19:00 76 20 35 11/06/18 16:33 79 25 35 11/06/18 16:00 35 11/06/18 16:00 98.2 85 22 137/82 (100) 100 11/06/18 16:00 Mechanical Ventilator 11/06/18 16:00 82 11/06/18 15:17 76 16 35 Intake and Output 11/06/18 11/07/18 19:00 07:00 Intake Total 1108.4 ml 1005 ml Output Total 1050 ml 300 ml Balance 58.4 ml 705 ml Intake Free Water 150 ml 225 ml IV Total 113.4 ml Tube Feeding 845 ml 780 ml Output Urine Total 1050 ml 300 ml # Bowel Movements 2 Laboratory Tests 11/06/18 15:36: Stool Occult Blood [Pending] 11/07/18 04:00: White Blood Count 11.7H, Red Blood Count 3.32L, Hemoglobin 9.4L, Hematocrit 29.3L, Mean Corpuscular Volume 88, Mean Corpuscular Hemoglobin 28.3, Mean Corpuscular Hemoglobin Concent 32.0, Red Cell Distribution Width 14.8, Platelet Count 260, Mean Platelet Volume 6.9, Neutrophils (%) (Auto) 67.9, Lymphocytes (% ) (Auto) 17.8L, Monocytes (%) (Auto) 9.6, Eosinophils (%) (Auto) 3.5H, Basophils (%) (Auto) 1.2, Sodium Level 133L, Potassium Level 5.0, Chloride Level 103, Carbon Dioxide Level 23, Anion Gap 7, Blood Urea Nitrogen 27H, Creatinine 1.0, Estimat Glomerular Filtration Rate > 60, Glucose Level 103, Calcium Level 9.1, Phosphorus Level 3.6, Magnesium Level 1.9, Total Bilirubin 0.3, Aspartate Amino Transf (AST/SGOT) 35, Alanine Aminotransferase (ALT/SGPT) 29, Alkaline Phosphatase 120H, Total Protein 7.2, Albumin 2.4L, Globulin 4.8, Albumin/Globulin Ratio 0.5L Height (Feet): 5 Height (Inches): 3.00 Weight (Pounds): 134 General Appearance: lethargic EENT: normal ENT inspection Neck: normal alignment Cardiovascular: normal peripheral pulses, normal rate, regular rhythm Respiratory/Chest: chest wall non-tender, lungs clear, normal breath sounds Abdomen: normal bowel sounds, non tender, soft Extremities: normal inspection Edema: no edema noted Arm (L), no edema noted Arm (R), no edema noted Leg (L), no edema noted Leg (R), no edema noted Pedal (L), no edema noted Pedal (R), no edema noted Generalized Neurologic: motor weakness Skin: normal pigmentation, warm/dry Gato Viveros DO Nov 07, 2018 14:59
--- NOTE | 2018-11-07 15:39 | NUR ---
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 98.2 HR 72 RR 18 B/P 147/84 AC 14 TV 600 FIO2 355 PEEP 5 WBC 11.2 BUN 27 ALK PHOS 120 IS: IVF NS @ 30ML/HR HEPARIN SUBC STEP DOWN STATUS
[2018-11-07 16:00] VITALS: BP 138/77
--- NOTE | 2018-11-07 16:20 | Infectious Diseases Prog Note ---
Assessment/Plan Assessment/Plan Assessment: Sepsis; improving- ?2ry to UTI -11/04 CXR: Hazy density at the right lung base demonstrated unchanged. This is probably atelectasis. Remainder of the lungs are essentially clear. -11/01 CXR: There is mild atelectasis at the right lung base. 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 diff Dysphagia s/p G-tube Anemia. CVA/TIA w/ hemiplegia functional quadriplegia chronic encephalopathy CAD CHF Dm2 GIB s/p multiple EGDs in the past hx of severe esophagitis schizoaffective disease halfway resident multiple admissions VRE colonization Plan: -Continue monitor off abx -11/06 SP Amikacin #6 -11/01 SP Meropenem #4 -10/29 SP IV Vanco #2, Cefepime #2 and Tigecycline #1 -10/28 SP LEavquin x1 -10/09 SP Ertapenem #5 - 10/04 SP Meropenem #2 -10/03/18 SP IV Vancomycin #2 and Cefepime #2 -08/09/18 SP Bactrim #7 -08/03 SP Vancomycin and Cefepime #3 -08/01/18 SP Ceftriaxone x1 -f/u cx -Monitor CBC/CMP, temperatures -wound care -aspiration precautions -CBC am Subjective Allergies: Coded Allergies: NO KNOWN DRUG ALLERGIES (Verified Allergy, Unknown, 09/11/16) Subjective afebrile mild leukocytosis now off abx Objective Vital Signs Last 24 Hour Vital Signs Date Time Temp Pulse Resp B/P (MAP) Pulse Ox O2 Delivery O2 Flow Rate FiO2 11/07/18 15:02 92 18 35 11/07/18 13:45 88 17 35 11/07/18 12:00 Mechanical Ventilator 11/07/18 12:00 98.2 72 18 147/84 (105) 100 11/07/18 12:00 76 11/07/18 12:00 35 11/07/18 11:55 77 16 35 11/07/18 10:53 82 20 35 11/07/18 08:50 78 20 35 11/07/18 08:00 78 11/07/18 08:00 Mechanical Ventilator 11/07/18 08:00 98.4 77 18 129/66 (87) 96 11/07/18 08:00 35 11/07/18 06:55 81 20 35 11/07/18 05:01 85 30 35 11/07/18 04:00 Mechanical Ventilator 11/07/18 04:00 35 11/07/18 04:00 98.3 80 24 144/81 (102) 95 11/07/18 03:38 74 11/07/18 02:56 83 20 35 11/07/18 01:21 75 19 35 11/07/18 00:00 Mechanical Ventilator 11/07/18 00:00 98.9 76 20 114/71 (85) 99 11/06/18 23:56 76 11/06/18 22:44 76 24 35 11/06/18 21:05 77 23 35 11/06/18 20:00 98.8 81 24 135/71 (92) 100 11/06/18 20:00 35 11/06/18 20:00 Mechanical Ventilator 11/06/18 19:01 76 11/06/18 19:00 76 20 35 11/06/18 16:33 79 25 35 Height (Feet): 5 Height (Inches): 3.00 Weight (Pounds): 134 Objective Status: awake Condition: critical HEENT: atraumatic Lungs: chest wall tender, rales Heart: HR/BP stable Abdomen: soft, non-tender Extremities: no C/C/E, edema Decubiti: stage Microbiology Date/Time Source Procedure Growth Status 11/06/18 15:36 Stool Clostridium difficile Toxin Assay - Final Complete Laboratory Tests Test 11/07/18 04:00 White Blood Count 11.7 K/UL (4.8-10.8) H Red Blood Count 3.32 M/UL (4.70-6.10) L Hemoglobin 9.4 G/DL (14.2-18.0) L Hematocrit 29.3 % (42.0-52.0) L Mean Corpuscular Volume 88 FL (80-99) Mean Corpuscular Hemoglobin 28.3 PG (27.0-31.0) Mean Corpuscular Hemoglobin Concent 32.0 G/DL (32.0-36.0) Red Cell Distribution Width 14.8 % (11.6-14.8) Platelet Count 260 K/UL (150-450) Mean Platelet Volume 6.9 FL (6.5-10.1) Neutrophils (%) (Auto) 67.9 % (45.0-75.0) Lymphocytes (%) (Auto) 17.8 % (20.0-45.0) L Monocytes (%) (Auto) 9.6 % (1.0-10.0) Eosinophils (%) (Auto) 3.5 % (0.0-3.0) H Basophils (%) (Auto) 1.2 % (0.0-2.0) Sodium Level 133 MMOL/L (136-145) L Potassium Level 5.0 MMOL/L (3.5-5.1) Chloride Level 103 MMOL/L (98-107) Carbon Dioxide Level 23 MMOL/L (21-32) Anion Gap 7 mmol/L (5-15) Blood Urea Nitrogen 27 mg/dL (7-18) H Creatinine 1.0 MG/DL (0.55-1.30) Estimat Glomerular Filtration Rate > 60 mL/min (>60) Glucose Level 103 MG/DL (74-106) Calcium Level 9.1 MG/DL (8.5-10.1) Phosphorus Level 3.6 MG/DL (2.5-4.9) Magnesium Level 1.9 MG/DL (1.8-2.4) Total Bilirubin 0.3 MG/DL (0.2-1.0) Aspartate Amino Transf (AST/SGOT) 35 U/L (15-37) Alanine Aminotransferase (ALT/SGPT) 29 U/L (12-78) Alkaline Phosphatase 120 U/L (46-116) H Total Protein 7.2 G/DL (6.4-8.2) Albumin 2.4 G/DL (3.4-5.0) L Globulin 4.8 g/dL Albumin/Globulin Ratio 0.5 (1.0-2.7) L Current Medications Medications (Trade) Dose Ordered Sig/Wanda Route PRN Reason Start Time Stop Time Status Last Admin Dose Admin Acetaminophen (Tylenol) 650 mg Q4H PRN ORAL FEVER 10/28/18 18:30 11/27/18 18:29 Chlorhexidine Gluconate (Jasmin-Hex 2%) 1 applic DAILY@2000 TOPIC 10/29/18 20:00 11/28/18 19:59 11/06/18 21:10 Dextrose (Dextrose 50%) 25 ml Q30M PRN IV Hypoglycemia 10/30/18 15:00 11/29/18 14:53 Dextrose (Dextrose 50%) 50 ml Q30M PRN IV hypoglycemia 10/30/18 15:00 11/29/18 14:59 Heparin Sodium (Porcine) (Heparin 5000 units/ml) 5,000 units EVERY 12 HOURS SUBQ 10/28/18 21:00 11/27/18 20:59 11/07/18 09:43 Lansoprazole (Prevacid) 30 mg BID GT 11/07/18 18:00 12/07/18 17:59 Levothyroxine Sodium (Synthroid) 75 mcg DAILY GT 11/03/18 09:00 12/03/18 08:59 11/07/18 09:33 Lorazepam (Ativan 2mg/ml 1ml) 2 mg Q2H PRN IV For Anxiety 11/02/18 10:30 11/09/18 10:29 Morphine Sulfate (Morphine Sulfate) 4 mg Q4H PRN IVP Severe Pain (Pain Scale 7-10) 11/02/18 10:30 11/09/18 10:29 Ondansetron HCl (Zofran) 4 mg Q6H PRN IVP Nausea & Vomiting 10/28/18 18:30 11/27/18 18:29 Polyethylene Glycol (Miralax) 17 gm DAILYPRN PRN ORAL Constipation 10/28/18 18:30 11/27/18 18:29 Sodium Chloride 250 ml @ 30 mls/hr ONCE ONCE IV 11/07/18 14:00 11/07/18 22:19 11/07/18 14:38 Sucralfate (Carafate) 1 gm FOUR TIMES A DAY GT 10/28/18 21:00 11/27/18 20:59 11/07/18 14:28 Lisy Lai M.D. Nov 07, 2018 16:20
--- NOTE | 2018-11-07 19:45 | NUR ---
HAND-OFF: Report given to .LOURDES HARTLEY.
[2018-11-07 20:00] VITALS: BP 118/77
--- NOTE | 2018-11-07 21:00 | NUR ---
NURSE NOTES: Received patient from ODILIA Rodriguez. Patient sleeping in bed with NAD; obtunded. Patient tolerating current vent settings. GT intact and patent; feeding running at prescribed rate. Right upper arm PICC flushed and patent. Bed at lowest position; bed alarm on; side rails raised x3; call light within reach. Will follow plan of care.
--- NOTE | 2018-11-07 21:34 | General Progress Note ---
Assessment/Plan Assessment/Plan ASSESSMENT AND RECOMMENDATIONS # Anemia of chronic disease due to underlying chronic medical issues, multifactorial --> Anemia w/u has been ordered and reviewed and c/w acd --> No evidence of hemolysis is noted, peripheral smear has been reviewed. --> Hgb goal >7. Transfuse prn. --> Epogen or iron at this time is not particularly indicated # Leukocytosis. Likely related to underlying infection versus reactive process. --> Peripheral has been reviewed and no abnml cells noted at moment --> Medications have been reviewed --> Imaging has been reviewed. CXR shows Suboptimal positioning. No interval consolidation, overt edema or other acute cardiopulmonary findings. --> Blood cultures and urine cultures are pending. --> Has been started on abx, empiric treatment # Upper GI vomiting bleed in prior admission --> currently appears to have resolved # Trach and PEG. --> chronic # Hyperkalemia --> as per renal GREATLY APPRECIATE CONSULTATION. Subjective ROS Limited/Unobtainable: Yes Allergies: Coded Allergies: NO KNOWN DRUG ALLERGIES (Verified Allergy, Unknown, 09/11/16) Subjective 11/07: seen by bedside, Trach to vent, on GT, mild leukocytosis, no events Objective Last 24 Hour Vital Signs Date Time Temp Pulse Resp B/P (MAP) Pulse Ox O2 Delivery O2 Flow Rate FiO2 11/07/18 21:10 81 17 35 11/07/18 20:00 98.2 79 16 118/77 (91) 98 11/07/18 19:00 85 16 35 11/07/18 17:06 89 17 35 11/07/18 16:00 98.4 91 16 138/77 (97) 97 11/07/18 16:00 Mechanical Ventilator 11/07/18 16:00 35 11/07/18 16:00 91 11/07/18 15:02 92 18 35 11/07/18 13:45 88 17 35 11/07/18 12:00 Mechanical Ventilator 11/07/18 12:00 98.2 72 18 147/84 (105) 100 11/07/18 12:00 76 11/07/18 12:00 35 11/07/18 11:55 77 16 35 11/07/18 10:53 82 20 35 11/07/18 08:50 78 20 35 11/07/18 08:00 78 11/07/18 08:00 Mechanical Ventilator 11/07/18 08:00 98.4 77 18 129/66 (87) 96 11/07/18 08:00 35 11/07/18 06:55 81 20 35 11/07/18 05:01 85 30 35 11/07/18 04:00 Mechanical Ventilator 11/07/18 04:00 35 11/07/18 04:00 98.3 80 24 144/81 (102) 95 11/07/18 03:38 74 11/07/18 02:56 83 20 35 11/07/18 01:21 75 19 35 11/07/18 00:00 Mechanical Ventilator 11/07/18 00:00 98.9 76 20 114/71 (85) 99 11/06/18 23:56 76 11/06/18 22:44 76 24 35 Intake and Output 11/06/18 11/07/18 19:00 07:00 Intake Total 1108.4 ml 1005 ml Output Total 1050 ml 300 ml Balance 58.4 ml 705 ml Intake Free Water 150 ml 225 ml IV Total 113.4 ml Tube Feeding 845 ml 780 ml Output Urine Total 1050 ml 300 ml # Bowel Movements 2 Laboratory Tests 11/07/18 04:00: White Blood Count 11.7H, Red Blood Count 3.32L, Hemoglobin 9.4L, Hematocrit 29.3L, Mean Corpuscular Volume 88, Mean Corpuscular Hemoglobin 28.3, Mean Corpuscular Hemoglobin Concent 32.0, Red Cell Distribution Width 14.8, Platelet Count 260, Mean Platelet Volume 6.9, Neutrophils (%) (Auto) 67.9, Lymphocytes (% ) (Auto) 17.8L, Monocytes (%) (Auto) 9.6, Eosinophils (%) (Auto) 3.5H, Basophils (%) (Auto) 1.2, Sodium Level 133L, Potassium Level 5.0, Chloride Level 103, Carbon Dioxide Level 23, Anion Gap 7, Blood Urea Nitrogen 27H, Creatinine 1.0, Estimat Glomerular Filtration Rate > 60, Glucose Level 103, Calcium Level 9.1, Phosphorus Level 3.6, Magnesium Level 1.9, Total Bilirubin 0.3, Aspartate Amino Transf (AST/SGOT) 35, Alanine Aminotransferase (ALT/SGPT) 29, Alkaline Phosphatase 120H, Total Protein 7.2, Albumin 2.4L, Globulin 4.8, Albumin/Globulin Ratio 0.5L Height (Feet): 5 Height (Inches): 3.00 Weight (Pounds): 134 Objective PHYSICAL EXAMINATION: VITAL SIGNS: Have been reviewed HEENT: Trach site is intact. CHEST: Bibasilar rales CARDIOVASCULAR: Regular rate and rhythm. GASTROINTESTINAL: Positive bowel sounds. G-tube site is intact. EXTREMITIES: + edema. NEUROLOGICAL: The patient does not follow neurological exam. Reflexes equal on both sides. No organomegaly. Nikos Nath MD Nov 07, 2018 21:34
[2018-11-07] MEDS: Dyna-Hex 2% Top Sol 2oz TOPIC SCH (21:43)
[2018-11-08] VITALS: BP 149/76
[2018-11-08 04:00] VITALS: BP 130/68
--- NOTE | 2018-11-08 04:00 | NUR ---
NURSE NOTES: unable to draw from PICC line; lab petty AM labs. Collected stool sample; sent down to lab.
[2018-11-08 06:26] LABS: BASOPHILS % (AUTO) 0.6 % (0.0-2.0); EOSINOPHILS % (AUTO) 2.8 % (0.0-3.0); HEMATOCRIT 28.2 % (42.0-52.0); HEMOGLOBIN 9.1 G/DL (14.2-18.0); LYMPHOCYTES % (AUTO) 18.3 % (20.0-45.0); MEAN CORPUSCULAR VOLUME 88 FL (80-99); MONOCYTES % (AUTO) 10.2 % (1.0-10.0); NEUTROPHILS % (AUTO) 68.2 % (45.0-75.0); PLATELET COUNT 257 K/UL (150-450); RED BLOOD COUNT 3.22 M/UL (4.70-6.10); RED CELL DISTRIBUTION WIDTH 15.3 % (11.6-14.8); WHITE BLOOD COUNT 10.2 K/UL (4.8-10.8)
--- NOTE | 2018-11-08 06:40 | NUR ---
RESPIRATORY NOTE: Pt received on mechanical ventilator, Patient is a trach patient with a Portex 8. Current settings are AC 600, 16, 35%, +5. Patient is a full code, AMBU bag bedside, spare trach, all alarms are set and audible. Will continue to monitor patient and maintain a patent airway.
[2018-11-08 07:02] LABS: ALANINE AMINOTRANSFERASE 28 U/L (12-78); ALBUMIN 2.5 G/DL (3.4-5.0); ALBUMIN/GLOBULIN RATIO 0.5 (1.0-2.7); ALKALINE PHOSPHATASE 118 U/L (46-116); ANION GAP 8 mmol/L (5-15); ASPARTATE AMINO TRANSFERASE 19 U/L (15-37); BILIRUBIN,TOTAL 0.3 MG/DL (0.2-1.0); BLOOD UREA NITROGEN 26 mg/dL (7-18); CALCIUM 9.2 MG/DL (8.5-10.1); CARBON DIOXIDE 23 MMOL/L (21-32); CHLORIDE 105 MMOL/L (98-107); CREATININE 1.1 MG/DL (0.55-1.30); PHOSPHORUS 3.5 MG/DL (2.5-4.9); POTASSIUM 4.3 MMOL/L (3.5-5.1); SODIUM 136 MMOL/L (136-145)
--- NOTE | 2018-11-08 07:35 | NUR ---
HAND-OFF: Report given to ODILIA Asher. Patient in stable condition. Plan of care endorsed.
--- NOTE | 2018-11-08 07:36 | NUR ---
NURSE NOTES: Received patient from Saranya Asher RN. Patient in bed and obtunded. Trach to vent dependent. In no respiratory distress. monitoring specialist, Gtube, and condom catheter in placed. PICC on the PRASHANTH. Bed in lowest position, locked with side rails up. Will continue to follow plan of care.
[2018-11-08 08:00] VITALS: BP 131/74
[2018-11-08] MEDS: Sucralfate 1gm tab GT SCH ×3 (09:11→18:00)
[2018-11-08] MEDS: Heparin 5000 units/ml inj SUBQ SCH (09:23)
--- NOTE | 2018-11-08 10:49 | Nephrology Progress Note ---
Assessment/Plan Problem List: (1) Acute renal failure (2) Sepsis (3) Severe protein-calorie malnutrition (4) Hypothyroidism Assessment (1) Tracheostomy dependence Respiratory failure, xmymz-ds-rbslpha (2) Sepsis , Leukocytosis (3) GI bleed (4) Acute renal failure, Cr 1.4 (5) HypoThyroidism (6) Alzheimer's (7) Severe protein-calorie malnutrition (8) Feeding by G-tube Plan CHANGE PROTONIX TO PREVACID GT Antibiotics K supplement as needed pulm support monitor renal parameters Avoid Nephrotoxics check H&H Subjective ROS Limited/Unobtainable: Yes Objective Objective Last 24 Hour Vital Signs Date Time Temp Pulse Resp B/P (MAP) Pulse Ox O2 Delivery O2 Flow Rate FiO2 11/08/18 09:12 83 19 35 11/08/18 08:00 35 11/08/18 08:00 98.8 75 18 131/74 (93) 99 11/08/18 08:00 Mechanical Ventilator 11/08/18 07:42 78 11/08/18 07:00 73 19 35 11/08/18 04:58 86 19 35 11/08/18 04:00 98.1 77 16 130/68 (88) 97 11/08/18 04:00 35 11/08/18 04:00 Mechanical Ventilator 11/08/18 04:00 85 11/08/18 03:04 77 16 35 11/08/18 02:00 35 11/08/18 01:28 79 16 35 11/08/18 00:00 98.4 84 16 149/76 (100) 99 11/08/18 00:00 35 11/08/18 00:00 Mechanical Ventilator 11/08/18 00:00 82 11/07/18 23:11 78 18 35 11/07/18 22:00 35 11/07/18 21:10 81 17 35 11/07/18 20:00 Mechanical Ventilator 11/07/18 20:00 85 11/07/18 20:00 98.2 79 16 118/77 (91) 98 11/07/18 19:00 85 16 35 11/07/18 17:06 89 17 35 11/07/18 16:00 98.4 91 16 138/77 (97) 97 11/07/18 16:00 Mechanical Ventilator 11/07/18 16:00 35 2/28/19 16:00 91 11/07/18 15:02 92 18 35 11/07/18 13:45 88 17 35 11/07/18 12:00 Mechanical Ventilator 11/07/18 12:00 98.2 72 18 147/84 (105) 100 11/07/18 12:00 76 11/07/18 12:00 35 11/07/18 11:55 77 16 35 11/07/18 10:53 82 20 35 Intake and Output 11/07/18 11/08/18 19:00 07:00 Intake Total 1060 ml 875 ml Output Total 450 ml 1350 ml Balance 610 ml -475 ml Intake Free Water 225 ml 225 ml IV Total 120 ml Tube Feeding 715 ml 650 ml Output Urine Total 450 ml 1350 ml # Bowel Movements 1 Laboratory Tests 11/08/18 03:20: White Blood Count 10.2, Red Blood Count 3.22L, Hemoglobin 9.1L, Hematocrit 28.2L , Mean Corpuscular Volume 88, Mean Corpuscular Hemoglobin 28.2, Mean Corpuscular Hemoglobin Concent 32.2, Red Cell Distribution Width 15.3H, Platelet Count 257, Mean Platelet Volume 7.0, Neutrophils (%) (Auto) 68.2, Lymphocytes (%) (Auto) 18.3L, Monocytes (%) (Auto) 10.2H, Eosinophils (%) (Auto ) 2.8, Basophils (%) (Auto) 0.6, Prothrombin Time 10.8, Prothromb Time International Ratio 1.0, Activated Partial Thromboplast Time 33, Sodium Level 136, Potassium Level 4.3, Chloride Level 105, Carbon Dioxide Level 23, Anion Gap 8, Blood Urea Nitrogen 26H, Creatinine 1.1, Estimat Glomerular Filtration Rate > 60, Glucose Level 105, Calcium Level 9.2, Phosphorus Level 3.5, Magnesium Level 1.9, Total Bilirubin 0.3, Aspartate Amino Transf (AST/SGOT) 19, Alanine Aminotransferase (ALT/SGPT) 28, Alkaline Phosphatase 118H, Total Protein 7.4, Albumin 2.5L, Globulin 4.9, Albumin/Globulin Ratio 0.5L 11/08/18 04:00: Stool Occult Blood Positive Height (Feet): 5 Height (Inches): 3.00 Weight (Pounds): 134 General Appearance: no apparent distress EENT: other - trach Cardiovascular: normal rate Respiratory/Chest: decreased breath sounds Abdomen: distended Objective no change Sav Salvador MD Nov 08, 2018 10:49
--- NOTE | 2018-11-08 11:59 | Diagnostic Imaging Report ---
Indication: Dyspnea Technique: One view of the chest Comparison: 11/04/2018 Findings: Tracheostomy again demonstrated. The lungs and pleural spaces are clear. Heart size is normal. Right arm PICC again demonstrated. Findings are unchanged Impression: Unchanged, over 4 days, findings as above.
[2018-11-08 12:00] VITALS: BP 130/70
[2018-11-08] MEDS ORDERED: LEVOTHYROXINE75 MCG GT (13:19)
[2018-11-08] MEDS ORDERED: LANSOPRAZOLE30 MG GT (13:19)
--- NOTE | 2018-11-08 13:21 | Pulmonolgy Critical Care Note ---
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, 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 with: consultants, transplant case managereducation site manager - Objective Last 24 Hour Vital Signs Date Time Temp Pulse Resp B/P (MAP) Pulse Ox O2 Delivery O2 Flow Rate FiO2 11/08/18 13:05 83 17 35 11/08/18 12:00 98.7 80 18 130/70 (90) 99 11/08/18 12:00 Mechanical Ventilator 11/08/18 12:00 35 11/08/18 11:18 79 16 35 11/08/18 09:12 83 19 35 11/08/18 08:00 35 11/08/18 08:00 98.8 75 18 131/74 (93) 99 11/08/18 08:00 Mechanical Ventilator 11/08/18 07:42 78 11/08/18 07:00 73 19 35 11/08/18 04:58 86 19 35 11/08/18 04:00 98.1 77 16 130/68 (88) 97 11/08/18 04:00 35 11/08/18 04:00 Mechanical Ventilator 11/08/18 04:00 85 11/08/18 03:04 77 16 35 11/08/18 02:00 35 11/08/18 01:28 79 16 35 11/08/18 00:00 98.4 84 16 149/76 (100) 99 11/08/18 00:00 35 11/08/18 00:00 Mechanical Ventilator 11/08/18 00:00 82 11/07/18 23:11 78 18 35 11/07/18 22:00 35 11/07/18 21:10 81 17 35 11/07/18 20:00 Mechanical Ventilator 11/07/18 20:00 85 11/07/18 20:00 98.2 79 16 118/77 (91) 98 11/07/18 19:00 85 16 35 11/07/18 17:06 89 17 35 11/07/18 16:00 98.4 91 16 138/77 (97) 97 11/07/18 16:00 Mechanical Ventilator 11/07/18 16:00 35 11/07/18 16:00 91 11/07/18 15:02 92 18 35 11/07/18 13:45 88 17 35 Status: awake Condition: critical Neck: full ROM Heart: HR/BP stable Abdomen: soft, active bowel sounds Extremities: edema Decubiti: stage Micro: Microbiology Date/Time Source Procedure Growth Status 11/06/18 15:36 Stool Clostridium difficile Toxin Assay - Final Complete Critical Care - Subjective ROS Limited/Unobtainable: Yes Condition: critical EKG Rhythm: Sinus Rhythm FI02: 35 Vent Support Breath Rate: 16 Vent Support Mode: AC Vent Tidal Volume: 600 Sputum Amount: Moderate PEEP: 5.0 PIP: 24 Tube Feeding Amount: 65 I&O: Intake and Output 11/07/18 11/08/18 19:00 07:00 Intake Total 1060 ml 875 ml Output Total 450 ml 1350 ml Balance 610 ml -475 ml Intake Free Water 225 ml 225 ml IV Total 120 ml Tube Feeding 715 ml 650 ml Output Urine Total 450 ml 1350 ml # Bowel Movements 1 Labs: Laboratory Tests Test 11/08/18 03:20 11/08/18 04:00 White Blood Count 10.2 K/UL (4.8-10.8) Red Blood Count 3.22 M/UL (4.70-6.10) L Hemoglobin 9.1 G/DL (14.2-18.0) L Hematocrit 28.2 % (42.0-52.0) L Mean Corpuscular Volume 88 FL (80-99) Mean Corpuscular Hemoglobin 28.2 PG (27.0-31.0) Mean Corpuscular Hemoglobin Concent 32.2 G/DL (32.0-36.0) Red Cell Distribution Width 15.3 % (11.6-14.8) H Platelet Count 257 K/UL (150-450) Mean Platelet Volume 7.0 FL (6.5-10.1) Neutrophils (%) (Auto) 68.2 % (45.0-75.0) Lymphocytes (%) (Auto) 18.3 % (20.0-45.0) L Monocytes (%) (Auto) 10.2 % (1.0-10.0) H Eosinophils (%) (Auto) 2.8 % (0.0-3.0) Basophils (%) (Auto) 0.6 % (0.0-2.0) Prothrombin Time 10.8 SEC (9.30-11.50) Prothromb Time International Ratio 1.0 (0.9-1.1) Activated Partial Thromboplast Time 33 SEC (23-33) Sodium Level 136 MMOL/L (136-145) Potassium Level 4.3 MMOL/L (3.5-5.1) Chloride Level 105 MMOL/L (98-107) Carbon Dioxide Level 23 MMOL/L (21-32) Anion Gap 8 mmol/L (5-15) Blood Urea Nitrogen 26 mg/dL (7-18) H Creatinine 1.1 MG/DL (0.55-1.30) Estimat Glomerular Filtration Rate > 60 mL/min (>60) Glucose Level 105 MG/DL (74-106) Calcium Level 9.2 MG/DL (8.5-10.1) Phosphorus Level 3.5 MG/DL (2.5-4.9) Magnesium Level 1.9 MG/DL (1.8-2.4) Total Bilirubin 0.3 MG/DL (0.2-1.0) Aspartate Amino Transf (AST/SGOT) 19 U/L (15-37) Alanine Aminotransferase (ALT/SGPT) 28 U/L (12-78) Alkaline Phosphatase 118 U/L (46-116) H Total Protein 7.4 G/DL (6.4-8.2) Albumin 2.5 G/DL (3.4-5.0) L Globulin 4.9 g/dL Albumin/Globulin Ratio 0.5 (1.0-2.7) L Stool Occult Blood Positive (NEGATIVE) Huma Keating MD Nov 08, 2018 13:21
--- NOTE | 2018-11-08 13:25 | General Progress Note ---
Assessment/Plan Problem List: (1) Acute renal failure ICD Codes: N17.9 - Acute kidney failure, unspecified SNOMED: 83782083 (2) Sepsis ICD Codes: A41.9 - Sepsis, unspecified organism SNOMED: 86970439 Qualifiers: Qualified Codes: A41.9 - Sepsis, unspecified organism (3) Severe protein-calorie malnutrition ICD Codes: E43 - Unspecified severe protein-calorie malnutrition SNOMED: 554937280 (4) Feeding by G-tube ICD Codes: Z93.1 - Gastrostomy status SNOMED: 552378480, 268713384 (5) Respiratory failure, [id number]-[id number] ICD Codes: J96.20 - Respiratory failure, fuchw-jf-omtzcnf SNOMED: 18825537 (6) UTI (urinary tract infection) ICD Codes: N39.0 - Urinary tract infection, site not specified SNOMED: 99777862 Qualifiers: Qualified Codes: N39.0 - Urinary tract infection, site not specified (7) Alzheimer's dementia ICD Codes: G30.9 - Alzheimer's disease, unspecified SNOMED: 57199259 (8) Anemia ICD Codes: D64.9 - Anemia, unspecified SNOMED: 181351123 Status: unchanged Assessment/Plan vent abx dc if clear Subjective Constitutional: Reports: weakness Allergies: Coded Allergies: NO KNOWN DRUG ALLERGIES (Verified Allergy, Unknown, 09/11/16) All Systems: reviewed and negative except above Subjective trach vent altered Objective Last 24 Hour Vital Signs Date Time Temp Pulse Resp B/P (MAP) Pulse Ox O2 Delivery O2 Flow Rate FiO2 11/08/18 13:05 83 17 35 11/08/18 12:00 98.7 80 18 130/70 (90) 99 11/08/18 12:00 Mechanical Ventilator 11/08/18 12:00 35 11/08/18 11:18 79 16 35 11/08/18 09:12 83 19 35 11/08/18 08:00 35 11/08/18 08:00 98.8 75 18 131/74 (93) 99 11/08/18 08:00 Mechanical Ventilator 11/08/18 07:42 78 11/08/18 07:00 73 19 35 11/08/18 04:58 86 19 35 11/08/18 04:00 98.1 77 16 130/68 (88) 97 11/08/18 04:00 35 11/08/18 04:00 Mechanical Ventilator 11/08/18 04:00 85 11/08/18 03:04 77 16 35 11/08/18 02:00 35 11/08/18 01:28 79 16 35 11/08/18 00:00 98.4 84 16 149/76 (100) 99 11/08/18 00:00 35 11/08/18 00:00 Mechanical Ventilator 11/08/18 00:00 82 11/07/18 23:11 78 18 35 11/07/18 22:00 35 11/07/18 21:10 81 17 35 11/07/18 20:00 Mechanical Ventilator 11/07/18 20:00 85 11/07/18 20:00 98.2 79 16 118/77 (91) 98 11/07/18 19:00 85 16 35 11/07/18 17:06 89 17 35 11/07/18 16:00 98.4 91 16 138/77 (97) 97 11/07/18 16:00 Mechanical Ventilator 11/07/18 16:00 35 11/07/18 16:00 91 11/07/18 15:02 92 18 35 11/07/18 13:45 88 17 35 Intake and Output 11/07/18 11/08/18 19:00 07:00 Intake Total 1060 ml 875 ml Output Total 450 ml 1350 ml Balance 610 ml -475 ml Intake Free Water 225 ml 225 ml IV Total 120 ml Tube Feeding 715 ml 650 ml Output Urine Total 450 ml 1350 ml # Bowel Movements 1 Laboratory Tests 11/08/18 03:20: White Blood Count 10.2, Red Blood Count 3.22L, Hemoglobin 9.1L, Hematocrit 28.2L , Mean Corpuscular Volume 88, Mean Corpuscular Hemoglobin 28.2, Mean Corpuscular Hemoglobin Concent 32.2, Red Cell Distribution Width 15.3H, Platelet Count 257, Mean Platelet Volume 7.0, Neutrophils (%) (Auto) 68.2, Lymphocytes (%) (Auto) 18.3L, Monocytes (%) (Auto) 10.2H, Eosinophils (%) (Auto ) 2.8, Basophils (%) (Auto) 0.6, Prothrombin Time 10.8, Prothromb Time International Ratio 1.0, Activated Partial Thromboplast Time 33, Sodium Level 136, Potassium Level 4.3, Chloride Level 105, Carbon Dioxide Level 23, Anion Gap 8, Blood Urea Nitrogen 26H, Creatinine 1.1, Estimat Glomerular Filtration Rate > 60, Glucose Level 105, Calcium Level 9.2, Phosphorus Level 3.5, Magnesium Level 1.9, Total Bilirubin 0.3, Aspartate Amino Transf (AST/SGOT) 19, Alanine Aminotransferase (ALT/SGPT) 28, Alkaline Phosphatase 118H, Total Protein 7.4, Albumin 2.5L, Globulin 4.9, Albumin/Globulin Ratio 0.5L 11/08/18 04:00: Stool Occult Blood Positive Height (Feet): 5 Height (Inches): 3.00 Weight (Pounds): 134 General Appearance: lethargic EENT: normal ENT inspection Neck: normal alignment Cardiovascular: normal peripheral pulses, normal rate, regular rhythm Respiratory/Chest: chest wall non-tender, lungs clear, normal breath sounds Abdomen: normal bowel sounds, non tender, soft Extremities: normal inspection Edema: no edema noted Arm (L), no edema noted Arm (R), no edema noted Leg (L), no edema noted Leg (R), no edema noted Pedal (L), no edema noted Pedal (R), no edema noted Generalized Neurologic: motor weakness Skin: normal pigmentation, warm/dry Gato Viveros DO Nov 08, 2018 13:25
--- NOTE | 2018-11-08 13:55 | NUR ---
*-* DISCHARGE PLANNING *-* PATIENT HAS BEEN REFERRED BACK TO: [facility] P:[phone] F:[phone]
--- NOTE | 2018-11-08 14:14 | NUR ---
*-* DISCHARGE PLANNED *-* PATIENT IS DISCHARGED BACK TO: [facility] ROOM[facility] 205-B ASSISTED T:[phone] FOR NURSE TO NURSE REPIRT [facility] HAS BEEN ARRANGED FOR FRAUD PREVENTION ANALYST AT 1700 S/W MODE [id number]
--- NOTE | 2018-11-08 14:35 | NUR ---
NURSE NOTES: Called Sofia Morrow (Public Guardian) and left a message about patient transferred to [facility] and a call back number here at [facility].
--- NOTE | 2018-11-08 14:47 | NUR ---
NURSE NOTES: Spoke to ONELIA Farley from [facility] and gave report.
--- NOTE | 2018-11-08 15:39 | Infectious Diseases Prog Note ---
Assessment/Plan Assessment/Plan Assessment: Sepsis; improving- ?2ry to UTI -11/04 CXR: Hazy density at the right lung base demonstrated unchanged. This is probably atelectasis. Remainder of the lungs are essentially clear. -11/01 CXR: There is mild atelectasis at the right lung base. 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 diff Dysphagia s/p G-tube Anemia. CVA/TIA w/ hemiplegia functional quadriplegia chronic encephalopathy CAD CHF Dm2 GIB s/p multiple EGDs in the past hx of severe esophagitis schizoaffective disease [facility] resident multiple admissions VRE colonization Plan: -Continue monitor off abx -11/06 SP Amikacin #6 -11/01 SP Meropenem #4 -10/29 SP IV Vanco #2, Cefepime #2 and Tigecycline #1 -10/28 SP LEavquin x1 -10/09 SP Ertapenem #5 - 10/04 SP Meropenem #2 -10/03/18 SP IV Vancomycin #2 and Cefepime #2 -08/09/18 SP Bactrim #7 -08/03 SP Vancomycin and Cefepime #3 -08/01/18 SP Ceftriaxone x1 -f/u cx -Monitor CBC/CMP, temperatures -wound care -aspiration precautions Subjective Allergies: Coded Allergies: NO KNOWN DRUG ALLERGIES (Verified Allergy, Unknown, 09/11/16) Subjective afebrile mild leukocytosis resolved off abx Objective Vital Signs Last 24 Hour Vital Signs Date Time Temp Pulse Resp B/P (MAP) Pulse Ox O2 Delivery O2 Flow Rate FiO2 11/08/18 15:25 77 16 35 3/1/19 13:05 83 17 35 11/08/18 12:00 98.7 80 18 130/70 (90) 99 11/08/18 12:00 Mechanical Ventilator 11/08/18 12:00 35 11/08/18 11:51 84 11/08/18 11:18 79 16 35 11/08/18 09:12 83 19 35 11/08/18 08:00 35 11/08/18 08:00 98.8 75 18 131/74 (93) 99 11/08/18 08:00 Mechanical Ventilator 11/08/18 07:42 78 11/08/18 07:00 73 19 35 11/08/18 04:58 86 19 35 11/08/18 04:00 98.1 77 16 130/68 (88) 97 11/08/18 04:00 35 11/08/18 04:00 Mechanical Ventilator 11/08/18 04:00 85 11/08/18 03:04 77 16 35 11/08/18 02:00 35 11/08/18 01:28 79 16 35 11/08/18 00:00 98.4 84 16 149/76 (100) 99 11/08/18 00:00 35 11/08/18 00:00 Mechanical Ventilator 11/08/18 00:00 82 11/07/18 23:11 78 18 35 11/07/18 22:00 35 11/07/18 21:10 81 17 35 11/07/18 20:00 Mechanical Ventilator 11/07/18 20:00 85 11/07/18 20:00 98.2 79 16 118/77 (91) 98 11/07/18 19:00 85 16 35 11/07/18 17:06 89 17 35 11/07/18 16:00 98.4 91 16 138/77 (97) 97 11/07/18 16:00 Mechanical Ventilator 11/07/18 16:00 35 11/07/18 16:00 91 Height (Feet): 5 Height (Inches): 3.00 Weight (Pounds): 134 Objective Status: awake Condition: critical HEENT: atraumatic Lungs: chest wall tender, rales Heart: HR/BP stable Abdomen: soft, non-tender Extremities: no C/C/E, edema Decubiti: stage Microbiology Date/Time Source Procedure Growth Status 11/06/18 15:36 Stool Clostridium difficile Toxin Assay - Final Complete Laboratory Tests Test 11/08/18 03:20 11/08/18 04:00 White Blood Count 10.2 K/UL (4.8-10.8) Red Blood Count 3.22 M/UL (4.70-6.10) L Hemoglobin 9.1 G/DL (14.2-18.0) L Hematocrit 28.2 % (42.0-52.0) L Mean Corpuscular Volume 88 FL (80-99) Mean Corpuscular Hemoglobin 28.2 PG (27.0-31.0) Mean Corpuscular Hemoglobin Concent 32.2 G/DL (32.0-36.0) Red Cell Distribution Width 15.3 % (11.6-14.8) H Platelet Count 257 K/UL (150-450) Mean Platelet Volume 7.0 FL (6.5-10.1) Neutrophils (%) (Auto) 68.2 % (45.0-75.0) Lymphocytes (%) (Auto) 18.3 % (20.0-45.0) L Monocytes (%) (Auto) 10.2 % (1.0-10.0) H Eosinophils (%) (Auto) 2.8 % (0.0-3.0) Basophils (%) (Auto) 0.6 % (0.0-2.0) Prothrombin Time 10.8 SEC (9.30-11.50) Prothromb Time International Ratio 1.0 (0.9-1.1) Activated Partial Thromboplast Time 33 SEC (23-33) Sodium Level 136 MMOL/L (136-145) Potassium Level 4.3 MMOL/L (3.5-5.1) Chloride Level 105 MMOL/L (98-107) Carbon Dioxide Level 23 MMOL/L (21-32) Anion Gap 8 mmol/L (5-15) Blood Urea Nitrogen 26 mg/dL (7-18) H Creatinine 1.1 MG/DL (0.55-1.30) Estimat Glomerular Filtration Rate > 60 mL/min (>60) Glucose Level 105 MG/DL (74-106) Calcium Level 9.2 MG/DL (8.5-10.1) Phosphorus Level 3.5 MG/DL (2.5-4.9) Magnesium Level 1.9 MG/DL (1.8-2.4) Total Bilirubin 0.3 MG/DL (0.2-1.0) Aspartate Amino Transf (AST/SGOT) 19 U/L (15-37) Alanine Aminotransferase (ALT/SGPT) 28 U/L (12-78) Alkaline Phosphatase 118 U/L (46-116) H Total Protein 7.4 G/DL (6.4-8.2) Albumin 2.5 G/DL (3.4-5.0) L Globulin 4.9 g/dL Albumin/Globulin Ratio 0.5 (1.0-2.7) L Stool Occult Blood Positive (NEGATIVE) Current Medications Medications (Trade) Dose Ordered Sig/Wanda Route PRN Reason Start Time Stop Time Status Last Admin Dose Admin Acetaminophen (Tylenol) 650 mg Q4H PRN ORAL FEVER 10/28/18 18:30 11/27/18 18:29 Chlorhexidine Gluconate (Jasmin-Hex 2%) 1 applic DAILY@1999 TOPIC 10/29/18 20:00 11/28/18 19:59 11/07/18 21:43 Dextrose (Dextrose 50%) 25 ml Q30M PRN IV Hypoglycemia 10/30/18 15:00 11/29/18 14:53 Dextrose (Dextrose 50%) 50 ml Q30M PRN IV hypoglycemia 10/30/18 15:00 11/29/18 14:59 Heparin Sodium (Porcine) (Heparin 5000 units/ml) 5,000 units EVERY 12 HOURS SUBQ 10/28/18 21:00 11/27/18 20:59 11/08/18 09:23 Lansoprazole (Prevacid) 30 mg BID GT 11/07/18 18:00 12/07/18 17:59 11/08/18 09:11 Levothyroxine Sodium (Synthroid) 75 mcg DAILY GT 11/03/18 09:00 12/03/18 08:59 11/08/18 09:11 Lorazepam (Ativan 2mg/ml 1ml) 2 mg Q2H PRN IV For Anxiety 11/02/18 10:30 11/09/18 10:29 Morphine Sulfate (Morphine Sulfate) 4 mg Q4H PRN IVP Severe Pain (Pain Scale 7-10) 11/02/18 10:30 11/09/18 10:29 Ondansetron HCl (Zofran) 4 mg Q6H PRN IVP Nausea & Vomiting 10/28/18 18:30 11/27/18 18:29 Polyethylene Glycol (Miralax) 17 gm DAILYPRN PRN ORAL Constipation 10/28/18 18:30 11/27/18 18:29 Sucralfate (Carafate) 1 gm FOUR TIMES A DAY GT 10/28/18 21:00 11/27/18 20:59 11/08/18 12:44 Lisy Lai M.D. Nov 08, 2018 15:39
[2018-11-08 16:00] VITALS: BP 131/72
[2018-11-08] MEDS ORDERED: Tubing IV Secondary IV ONE (16:37)
[2018-11-08] MEDS ORDERED: NS 275ml ONE (16:37)
--- NOTE | 2018-11-08 19:00 | NUR ---
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 Patient stable.
--- NOTE | 2018-11-09 00:24 | General Progress Note ---
Assessment/Plan Assessment/Plan ASSESSMENT AND RECOMMENDATIONS # Anemia of chronic disease due to underlying chronic medical issues, multifactorial --> Anemia w/u has been ordered and reviewed and c/w acd --> No evidence of hemolysis is noted, peripheral smear has been reviewed. --> Hgb goal >7. Transfuse prn. --> Epogen or iron at this time is not particularly indicated # Leukocytosis. Likely related to underlying infection versus reactive process. --> Peripheral has been reviewed and no abnml cells noted at moment --> Medications have been reviewed --> Imaging has been reviewed. CXR shows Suboptimal positioning. No interval consolidation, overt edema or other acute cardiopulmonary findings. --> Blood cultures and urine cultures reviewed --> Has been started on abx, empiric treatment # Upper GI vomiting bleed in prior admission --> currently appears to have resolved # Trach and PEG. --> chronic # Hyperkalemia --> as per renal GREATLY APPRECIATE CONSULTATION. Subjective Date patient seen: Nov 08, 2018 ROS Limited/Unobtainable: Yes Allergies: Coded Allergies: NO KNOWN DRUG ALLERGIES (Verified Allergy, Unknown, 09/11/16) Subjective 11/07: seen by bedside, Trach to vent, on GT, mild leukocytosis, no events 11/08: Pt is resting in bed, afebrile , mild leukocytosis resolved, off abx Objective Last 24 Hour Vital Signs Date Time Temp Pulse Resp B/P (MAP) Pulse Ox O2 Delivery O2 Flow Rate FiO2 11/08/18 17:15 86 17 35 11/08/18 16:00 Mechanical Ventilator 11/08/18 16:00 35 11/08/18 16:00 98.5 84 16 131/72 (91) 97 11/08/18 15:34 78 11/08/18 15:25 77 16 35 11/08/18 13:05 83 17 35 11/08/18 12:00 98.7 80 18 130/70 (90) 99 11/08/18 12:00 Mechanical Ventilator 11/08/18 12:00 35 11/08/18 11:51 84 11/08/18 11:18 79 16 35 11/08/18 09:12 83 19 35 11/08/18 08:00 35 11/08/18 08:00 98.8 75 18 131/74 (93) 99 11/08/18 08:00 Mechanical Ventilator 11/08/18 07:42 78 11/08/18 07:00 73 19 35 11/08/18 04:58 86 19 35 11/08/18 04:00 98.1 77 16 130/68 (88) 97 11/08/18 04:00 35 11/08/18 04:00 Mechanical Ventilator 11/08/18 04:00 85 11/08/18 03:04 77 16 35 11/08/18 02:00 35 11/08/18 01:28 79 16 35 Intake and Output 11/08/18 11/09/18 18:59 06:59 Intake Total 1005 ml Output Total 400 ml Balance 605 ml Intake Free Water 225 ml Tube Feeding 780 ml Output Urine Total 400 ml Laboratory Tests 11/08/18 03:20: White Blood Count 10.2, Red Blood Count 3.22L, Hemoglobin 9.1L, Hematocrit 28.2L , Mean Corpuscular Volume 88, Mean Corpuscular Hemoglobin 28.2, Mean Corpuscular Hemoglobin Concent 32.2, Red Cell Distribution Width 15.3H, Platelet Count 257, Mean Platelet Volume 7.0, Neutrophils (%) (Auto) 68.2, Lymphocytes (%) (Auto) 18.3L, Monocytes (%) (Auto) 10.2H, Eosinophils (%) (Auto ) 2.8, Basophils (%) (Auto) 0.6, Prothrombin Time 10.8, Prothromb Time International Ratio 1.0, Activated Partial Thromboplast Time 33, Sodium Level 136, Potassium Level 4.3, Chloride Level 105, Carbon Dioxide Level 23, Anion Gap 8, Blood Urea Nitrogen 26H, Creatinine 1.1, Estimat Glomerular Filtration Rate > 60, Glucose Level 105, Calcium Level 9.2, Phosphorus Level 3.5, Magnesium Level 1.9, Total Bilirubin 0.3, Aspartate Amino Transf (AST/SGOT) 19, Alanine Aminotransferase (ALT/SGPT) 28, Alkaline Phosphatase 118H, Total Protein 7.4, Albumin 2.5L, Globulin 4.9, Albumin/Globulin Ratio 0.5L 11/08/18 04:00: Stool Occult Blood Positive Height (Feet): 5 Height (Inches): 3.00 Weight (Pounds): 134 Objective PHYSICAL EXAMINATION: VITAL SIGNS: Have been reviewed HEENT: Trach site is intact. CHEST: Bibasilar rales CARDIOVASCULAR: Regular rate and rhythm. GASTROINTESTINAL: Positive bowel sounds. G-tube site is intact. EXTREMITIES: + edema. NEUROLOGICAL: The patient does not follow neurological exam. Reflexes equal on both sides. No organomegaly. Nikos Nath MD Nov 09, 2018 00:24
--- NOTE | 2018-11-11 08:51 | Discharge Summary ---
Discharge Summary Discharge Summary _ DATE OF ADMISSION: 10/28/2018 DATE OF DISCHARGE: 11/08/2018 DISCHARGED BY: REASON FOR ADMISSION: 68 years old male, with past medical history of ventilator dependent respiratory failure, tracheostomy status, dysphagia, G-tube, hypertension, hypothyroidism, history of CVA with hemiplegia, coronary artery disease, chronic CHF, type 2 diabetes mellitus, severe esophagitis, schizoaffective disorder, resident of subacute nursing facility, was sent for evaluation due to elevated white count and high potassium. Upon evaluation in emergency department patient was found to be septic with evidence of urinary tract infection and renal insufficiency. Septic workup initiated in emergency department, patient pancultured and started on empiric antibiotic. Fluid resuscitation provided. Antipyretics provided. Patient admitted to direct observational unit/[facility] for further management. CONSULTANTS: pulmonary Dr. Keating ID specialist Dr. Daniels extrusion line operator Dr. Salvador shaker plate operator/oncologist Dr. Nath [facility]SE: Patient admitted to [facility]. Patient continued on the IV fluids. Patient started on empiric antibiotics. Antibiotic provided as per infectious disease doctor recommendations. Urine cultures was negative. Blood cultures were negative. Sputum culture grew KPC, E. coli ESBL and Proteus. Chest x-ray revealed no active disease. Stool for C. difficile was negative. Patient noted to have right foot lateral ulcer, which was not infected. Initial leukocytosis resolved. Per ID specialist, sepsis was probably due to urinary tract infection in the setting of recurrent urinary tract infection. Ventilator support and tracheostomy care provided. Baseline ABG was done and settings were titrated as needed. Meticulous pulmonary toilet provided. Patient was followed-up with chest x-ray. No evidence of pneumonia. Venous duplex bilateral lower extremity revealed chronic recanalized thrombus in the superficial femoral vein left lower extremity, no evidence of acute DVT. DVT prophylaxis provided. Strict aspiration precaution maintained. Patient was able to tolerate G-tube feeding. Nutritional recommendation implemented in plan of care. Noted elevated TSH , levothyroxine dose was increased. GI prophylaxis provided. Hemoglobin and hematocrit were closely monitored with goal to keep hemoglobin above 7. Anemia workup was consistent with anemia of chronic disease due to underlying chronic medical issues. Patient received Venofer IV x1. Renal parameters and electrolytes were closely monitored, electrolytes corrected as needed, and nephrotoxins were avoided. Acute kidney injury resolved. Free water flushes via G-tube were increased due to azotemia. Supportive care provided. Bowel regimen instituted. Patient clinically stabilized and was ready for discharge to subacute facility for further management FINAL DIAGNOSES: Sepsis probably due to UTI Probable UTI , status post treatment , in setting of recurrent UTI Respiratory failure ,acute on chronic, ventilator dependent Dysphagia, G-tube feeding Severe protein calorie malnutrition Acute kidney injury/acute renal failure-resolved History of C. difficile colitis Anemia of chronic disease -due to underlying chronic medical issues Hypothyroidism Alzheimer's dementia History of upper GI bleeding DISCHARGE MEDICATIONS: See Medication Reconciliation list. DISCHARGE INSTRUCTIONS: Patient was discharged to the long-term facility. Follow up with medical doctor at the facility. Amina Garcia NP Nov 11, 2018 08:51
== END 2018-11-08 19:31 | DRG 870 ==
LOC: EDBD 13:12 → EMR 13:55 → EDBEDREQ 14:57 → 2W 16:17 → EDBEDREQ 16:22 → EDPENDDISTM 11-08 17:00 → EDPENDDISDT 11-08 17:00
PROC: 5A1955Z Respiratory Ventilation, Greater than 96 Consecutive Hours (ICD-10-PCS; principal; 2018-10-28)
PROC: 02HV33Z Insertion of Infusion Device into Superior Vena Cava, Percutaneous Approach (ICD-10-PCS; principal; 2018-10-28)
PROC: B548ZZA Ultrasonography of Superior Vena Cava, Guidance (ICD-10-PCS; principal; 2018-10-28)
DX: A41.9 Sepsis, unspecified organism (principal); J96.20 Acute and chronic respiratory failure, unspecified whether with hypoxia or hypercapnia; E43 Unspecified severe protein-calorie malnutrition; R53.2 Functional quadriplegia; N39.0 Urinary tract infection, site not specified; G93.40 Encephalopathy, unspecified; Z99.11 Dependence on respirator [ventilator] status; I69.959 Hemiplegia and hemiparesis following unspecified cerebrovascular disease affecting unspecified side; N17.9 Acute kidney failure, unspecified; R40.3 Persistent vegetative state; Z93.1 Gastrostomy status; Z93.0 Tracheostomy status; G30.9 Alzheimer's disease, unspecified; F02.80 Dementia in other diseases classified elsewhere, unspecified severity, without behavioral disturbance, psychotic disturbance, mood disturbance, and anxiety; Z68.23 Body mass index [BMI] 23.0-23.9, adult; I11.0 Hypertensive heart disease with heart failure; I50.9 Heart failure, unspecified; I25.10 Atherosclerotic heart disease of native coronary artery without angina pectoris; R13.10 Dysphagia, unspecified; F25.9 Schizoaffective disorder, unspecified; E11.9 Type 2 diabetes mellitus without complications; L97.529 Non-pressure chronic ulcer of other part of left foot with unspecified severity; E03.9 Hypothyroidism, unspecified; E87.5 Hyperkalemia; D64.9 Anemia, unspecified
CPT/HCPCS: 36415; 36569; 36600; 71045; 76937; 80048; 80053; 80061; 80069; 80150; 81003; 82270; 82550; 82553; 82607; 82728; 82746; 82803; 83540; 83550; 83605; 83615; 83735; 83880; 84100; 84300; 84443; 84484; 84550; 85007; 85025; 85044; 85060; 85610; 85651; 85660; 85730; 86140; 86850; 86900; 86901; 86920; 87040; 87070; 87081; 87086; 87181; 87205; 87324; 93005; 93970; 94002; 94003; 94664; 96365; 96368; 96375; 99285

== ENCOUNTER 2018-12-08 13:25 | Inpatient (IN) | payer MEDICARE ==
[~2018-12-08] VITALS: Ht 177.8 cm; Wt 70.3 kg
[~2018-12-08 13:25] MED LIST changes: +LANSOPRAZOLE30 MG GT; +LEVOTHYROXINE75 MCG GT
[2018-12-08] MEDS ORDERED: DUONEB 0.5-3(2.53 ML HHN (13:48)
[2018-12-08] MEDS ORDERED: UTI-STAT L3875 MG/31 GT (13:48)
[2018-12-08] MEDS ORDERED: VITAMIN C GT (13:48)
[2018-12-08 14:07] LABS: ANION GAP 12 mmol/L (5-15); BLOOD UREA NITROGEN 35 mg/dL (7-18); CALCIUM 9.8 MG/DL (8.5-10.1); CARBON DIOXIDE 25 MMOL/L (21-32); CHLORIDE 95 MMOL/L (98-107); CREATININE 1.3 MG/DL (0.55-1.30); POTASSIUM 4.5 MMOL/L (3.5-5.1); SODIUM 132 MMOL/L (136-145)
[2018-12-08 14:09] LABS: APPEARANCE,URINE CLEAR; BILIRUBIN, URINE NEGATIVE (NEGATIVE); GLUCOSE, URINE (UA) NEGATIVE (NEGATIVE); HEMATOCRIT 31.6 % (42.0-52.0); HEMOGLOBIN 10.5 G/DL (14.2-18.0); KETONES,URINE NEGATIVE (NEGATIVE); LEUKOCYTE ESTERASE ,URINE 3+ (NEGATIVE); MEAN CORPUSCULAR VOLUME 83 FL (80-99); NITRITE,URINE NEGATIVE (NEGATIVE); PH,URINE 7 (4.5-8.0); PLATELET COUNT 579 K/UL (150-450); PROTEIN,URINE 2+ (NEGATIVE); RED BLOOD COUNT 3.81 M/UL (4.70-6.10); RED CELL DISTRIBUTION WIDTH 15.1 % (11.6-14.8); UROBILINOGEN,URINE NORMAL MG/DL (0.0-1.0); WHITE BLOOD COUNT 18.3 K/UL (4.8-10.8)
[2018-12-08 14:15] VITALS: BP 122/80
--- NOTE | 2018-12-08 14:18 | NUR ---
ED Nurse Note: Pt. was brought in by ambulance from [facility] due to hgb=9.4, hct=32.1 and wbc =18.20( collected on 12/07/18). Pt. is confused and resistive to care. Pt. is non-verbal, on trach and on g-tube. Pt. has redness on the sacral area.
[2018-12-08 14:21] LABS: ALANINE AMINOTRANSFERASE 26 U/L (12-78); ALBUMIN/GLOBULIN RATIO 0.5 (1.0-2.7); ALKALINE PHOSPHATASE 136 U/L (46-116); ASPARTATE AMINO TRANSFERASE 24 U/L (15-37); BILIRUBIN,TOTAL 0.2 MG/DL (0.2-1.0); CKMB 1.4 NG/ML (0.0-3.6); CREATINE KINASE 65 U/L (26-308)
[2018-12-08 14:21] LABS: COLOR,URINE YELLOW
--- NOTE | 2018-12-08 14:25 | Emergency Room Report ---
History of Present Illness General Chief Complaint: Abnormal Labs Source: Medical Record, EMS Present Illness HPI The patient was sent in for evaluation for alleged elevated white count. No further current history is available. The patient is a trach dependent and has a gastrostomy tube. He also has a Victor catheter and multiple contractures. He was recently admitted to the hospital. Discharge diagnoses discharged 11/08: Sepsis probably due to UTI Probable UTI , status post treatment , in setting of recurrent UTI Respiratory failure ,acute on chronic, ventilator dependent Dysphagia, G-tube feeding Severe protein calorie malnutrition Acute kidney injury/acute renal failure-resolved History of C. difficile colitis Anemia of chronic disease -due to underlying chronic medical issues Hypothyroidism Alzheimer's dementia History of upper GI bleeding Allergies: Coded Allergies: NO KNOWN DRUG ALLERGIES (Verified Allergy, Unknown, 09/11/16) Patient History Limited by: medical condition Past Medical History: see triage record, old chart reviewed Social History Narrative [facility] Reviewed Nursing Documentation: PMH: Agreed; PSxH: Agreed Nursing Documentation-PM Past Medical History: No History, Except For Hx Cardiac Problems: Yes Hx Hypertension: Yes Hx Pacemaker: No Hx Asthma: Yes Hx COPD: No - vent dependent Hx Diabetes: Yes - DM II Hx Cancer: No Hx Gastrointestinal Problems: Yes - GERD Hx Dialysis: Yes Hx Neurological Problems: Yes Hx Cerebrovascular Accident: Yes Hx Transient Ischemic Attacks: Yes Hx Dementia: Yes Hx Alzheimer's Disease: Yes Hx Parkinson's Disease: Yes Hx Encephalitis: Yes Hx Seizures: Yes Hx Epilepsy: Yes Hx Paralysis: Yes - HEMIPLEGIA Hx Memory Loss: Yes Hx Concentration Difficulty: Yes Hx Speech Problem: Yes Hx Aphasia: Yes Hx Weakness: Yes Hx Fatigue: Yes Hx Neurologic Surgery: No Hx Brain Shunt: No Review of Systems All Other Systems: limited Physical Exam Vital Signs Date Time Temp Pulse Resp B/P (MAP) Pulse Ox O2 Delivery O2 Flow Rate FiO2 12/08/18 13:26 97.3 101 16 114/65 90 Mechanical Ventilator 36 Sp02 EP Interpretation: reviewed, normal General Appearance: thin, other - eyes open with stimulation occassionally, Chronically Ill Head: normocephalic, atraumatic Eyes: bilateral eye PERRL ENT: moist mucus membranes Neck: tracheotomy Respiratory: no respiratory distress, crackles, rales, rhonchi Cardiovascular #1: regular rate, rhythm, no edema Cardiovascular #2: 2+ femoral (R) Gastrointestinal: other - gastrostomy tube, decreased bowel sounds, scaphoid Genitourinary: no CVA tenderness, other - Victor catheter Musculoskeletal: other - contractures Neurologic: responsive - occasionally, motor weakness Skin: other - decubiti stage I, dependent portions Medical Decision Making Diagnostic Impression: Primary Impression: Right lower lobe pneumonia Qualified Codes: J18.1 - Lobar pneumonia, unspecified organism Additional Impressions: Leukocytosis Qualified Codes: D72.828 - Other elevated white blood cell count Elevated lactic acid level Severe protein-calorie malnutrition Contracture of multiple joints ER Course Urinalysis with minimal pyuria. Patient presents with alleged elevated white count. Differential includes sepsis, loose leukocytosis from another cause, UTI , pneumonia amongst others. Evaluation will be with EKG, chest x-ray and labs. The patient will receive gentle IV hydration. EKG without injury. Chest x-ray with right infiltrates. Laboratory with leukocytosis and elevated lactic acid. Urinalysis with minimal pyuria. IV hydration begun and IV antibiotics started. Patient admitted to stepdown unit Laboratory Tests Test 12/08/18 13:40 12/08/18 13:55 12/08/18 15:10 Sodium Level 132 MMOL/L (136-145) L Potassium Level 4.5 MMOL/L (3.5-5.1) Chloride Level 95 MMOL/L (98-107) L Carbon Dioxide Level 25 MMOL/L (21-32) Anion Gap 12 mmol/L (5-15) Blood Urea Nitrogen 35 mg/dL (7-18) H Creatinine 1.3 MG/DL (0.55-1.30) Estimate Glomerular Filtration Rate 54.6 mL/min (>60) Glucose Level 114 MG/DL (74-106) H Lactic Acid Level 2.20 mmol/L (0.4-2.0) H 1.10 mmol/L (0.66-2.22) Calcium Level 9.8 MG/DL (8.5-10.1) Total Bilirubin 0.2 MG/DL (0.2-1.0) Aspartate Amino Transferase (AST) 24 U/L (15-37) Alanine Aminotransferase (ALT) 26 U/L (12-78) Alkaline Phosphatase 136 U/L (46-116) H Total Creatine Kinase 65 U/L (26-308) Creatine Kinase MB 1.4 NG/ML (0.0-3.6) Creatine Kinase MB Relative Index 2.1 Troponin I 0.017 ng/mL (0.000-0.056) Pro-B-Type Natriuretic Peptide 309 pg/mL (0-125) H Total Protein 8.9 G/DL (6.4-8.2) H Albumin 3.0 G/DL (3.4-5.0) L Globulin 5.9 g/dL Albumin/Globulin Ratio 0.5 (1.0-2.7) L White Blood Count 18.3 K/UL (4.8-10.8) H Red Blood Count 3.81 M/UL (4.70-6.10) L Hemoglobin 10.5 G/DL (14.2-18.0) L Hematocrit 31.6 % (42.0-52.0) L Mean Corpuscular Volume 83 FL (80-99) Mean Corpuscular Hemoglobin 27.5 PG (27.0-31.0) Mean Corpuscular Hemoglobin Concent 33.1 G/DL (32.0-36.0) Red Cell Distribution Width 15.1 % (11.6-14.8) H Platelet Count 579 K/UL (150-450) H Mean Platelet Volume 6.9 FL (6.5-10.1) Neutrophils (%) (Auto) % (45.0-75.0) Lymphocytes (%) (Auto) % (20.0-45.0) Monocytes (%) (Auto) % (1.0-10.0) Eosinophils (%) (Auto) % (0.0-3.0) Basophils (%) (Auto) % (0.0-2.0) Differential Total Cells Counted 100 Neutrophils % (Manual) 70 % (45-75) Lymphocytes % (Manual) 14 % (20-45) L Monocytes % (Manual) 12 % (1-10) H Eosinophils % (Manual) 4 % (0-3) H Basophils % (Manual) 0 % (0-2) Band Neutrophils 0 % (0-8) Platelet Estimate Increased H Platelet Morphology Normal Anisocytosis 1+ Urine Color Yellow Urine Appearance Clear Urine pH 7 (4.5-8.0) Urine Specific [place] 1.005 (1.005-1.035) Urine Protein 2+ (NEGATIVE) H Urine Glucose (UA) Negative (NEGATIVE) Urine Ketones Negative (NEGATIVE) Urine Blood Negative (NEGATIVE) Urine Nitrite Negative (NEGATIVE) Urine Bilirubin Negative (NEGATIVE) Urine Urobilinogen Normal MG/DL (0.0-1.0) Urine Leukocyte Esterase 3+ (NEGATIVE) H Urine RBC 0 /HPF (0 - 0) Urine WBC 5-10 /HPF (0 - 0) H Urine Squamous Epithelial Cells Occasional /LPF Urine Bacteria Occasional /HPF (NONE) EKG Diagnostic Results Rate: normal Rhythm: NSR ST Segments: no acute changes Rhythm Strip Diag. Results EP Interpretation: yes Rhythm: NSR, no PVC's, no ectopy Chest X-Ray Diagnostic Results Chest X-Ray Diagnostic Results : Chest X-Ray Ordered: Yes # of Views/Limited/Complete: 1 View Indication: Other EP Interpretation: Yes Interpretation: no effusion, no pneumothorax, other - R atelectasis vs infiltrate Impression: Other Electronically Signed by: Electronically signed by John Hunter MD Last Vital Signs Date Time Temp Pulse Resp B/P (MAP) Pulse Ox O2 Delivery O2 Flow Rate FiO2 12/09/18 00:00 98.3 89 22 122/89 (100) 96 12/09/18 00:00 35 12/09/18 00:00 Mechanical Ventilator 12/08/18 17:00 15.0 Status: improved Disposition: ADMITTED INPATIENT Condition: Serious John Hunter MD Dec 08, 2018 14:25
[2018-12-08] MEDS ORDERED: Cefepime HCl 1 GM in D5W 55 ML IVPB ONE (14:45)
--- NOTE | 2018-12-08 15:40 | NUR ---
ED Nurse Note: PER KYLEIGH, ROOM IS NOT READY YET AND ALI NURSE WILL CALL BACK FOR REPORT
[2018-12-08] MEDS ORDERED: Miralax 17gm pkt ORAL PRN (16:00)
[2018-12-08] MEDS ORDERED: Albuterol/Ipratropium 3ml neb HHN PRN (16:00)
[2018-12-08] MEDS ORDERED: LORazepam Inj 2mg/ml 1ml IV PRN (16:00)
[2018-12-08] MEDS ORDERED: Morphine Sulfate 4mg/ml Inj (IV USE ONLY) IVP PRN (16:00)
--- NOTE | 2018-12-08 16:00 | NUR ---
NURSE NOTES: RECEIVED A TELEPHONE REPORT FROM HUNTER BROUSSARD [employer] INFORMAT[employer] PHYSICIAN OF ED DPT.PT ADMITTED WITH DX OF RT LL PNA,SEPSIS.PT IS 76 YRS OLD MALE TRACH TO VENT DEPENDENT ,NON-VERBAL CONFUSED.PT WITH GT AND H.L ON RTFA G#22 .DR WILLOUGHBY AWARE ABOUT THE NEW ADMISSION AND ASSESSED THE PT.ADMISSION ORDERS NOTED . A WAITING FOR THE PT TO COMMEN FROM ED DPT.
--- NOTE | 2018-12-08 16:04 | NUR ---
ED Nurse Note: TELEPHONE REPORT GIVEN TO ODILIA JIMENEZ FROM [facility]
[2018-12-08 16:11] VITALS: BP 144/88
[2018-12-08] MEDS ORDERED: Dextrose 50% 25ml Syringe IV PRN (16:15)
--- NOTE | 2018-12-08 16:33 | NUR ---
CASE MANAGEMENT: INITIAL REVIEW 68 YO M [facility] CC: ABNORMAL LABS (ELEVATED WHITE COUNT) PMHx: TRACH DEPENDENT. GTUBE. CONTRACTED. DM. COPD. HT. DEMENTIA. SI:PNA T 97.3 HR 101 RR 16 B/P 114/65 SATS 90% ON MECH VENT FiO2 36 WBC 18.3 NA 132 CL 95 BUN 35 GLU 114 LACTIC ACID 2.2 ALP 136 BNP 309 IS: CEFEPIME IV X1 LEVAQUIN IV X1 NS BOLUS X1 PATIENT ADMITTED TO STEP DOWN UNIT 12/08/2018 @ 1529 DCP: PATIENT TO BE DISCHARGED TO SNF ONCE MEDICALLY CLEARED. PLAN OF CARE: VENOUS DUPLEX VENT SUPPORT
[2018-12-08 17:00] VITALS: BP 133/65
[2018-12-08] MEDS: Sucralfate 1gm tab GT SCH ×2 (18:49→20:49)
[2018-12-08] MEDS: Vancomycin 500mg/D5W 110ml IVPB SCH ×2 (18:49)
--- NOTE | 2018-12-08 18:50 | NUR ---
RESPIRATORY NOTE: RECEIVED PT ON CURRENT VENT SETTINGS: AC 16 600 +5 FIO2 35%. PT CHULA CURRENT VENT SETTINGS WELL. TRACH SECURE AND PATENT. VENT PLUGGED INTO RED OUTLET. ALARMS ARE ON, AUDIBLE AND FUNCTIONING. NO RESP DISTRESS NOTED. SPARE TRACH AND AMBU BAG AT BEDSIDE. WILL MONITORING PT.
--- NOTE | 2018-12-08 19:15 | NUR ---
NURSE NOTES: Received report from Kirsten De La Torre RN. Patient is asleep in bed, opens eyes with shaking. Sinus on lunchroom monitor. No s/s of acute distress noted. Saturating well on tach-vent settings: [place] 8, AC 16, vT 600, FiO2 36%, PEEP 5. Receiving Jevity 1.2 @ 30 cc/hr via GT and tolerating feeding well. Right forearm 22g IV, intact and patent. Bed locked in lowest position with padded side rails up x3. Call light left within reach. Will continue to monitor.
--- NOTE | 2018-12-08 19:20 | NUR ---
HAND-OFF: Report given to FREDY AGUIRRE.
[2018-12-08 20:00] VITALS: BP 103/76
[2018-12-08] MEDS: Heparin 5000 units/ml inj SUBQ SCH (20:52)
[2018-12-09] VITALS: BP 122/89
[2018-12-09 04:00] VITALS: BP 151/87
[2018-12-09] MEDS: Vancomycin 500mg/D5W 110ml IVPB SCH ×4 (05:53→17:47)
[2018-12-09 06:43] LABS: BASOPHILS % (AUTO) 0.8 % (0.0-2.0); EOSINOPHILS % (AUTO) 3.7 % (0.0-3.0); HEMATOCRIT 27.8 % (42.0-52.0); LYMPHOCYTES % (AUTO) 15.1 % (20.0-45.0); MEAN CORPUSCULAR VOLUME 84 FL (80-99); MONOCYTES % (AUTO) 8.7 % (1.0-10.0); NEUTROPHILS % (AUTO) 71.8 % (45.0-75.0); PLATELET COUNT 499 K/UL (150-450); RED BLOOD COUNT 3.29 M/UL (4.70-6.10); RED CELL DISTRIBUTION WIDTH 15.1 % (11.6-14.8); WHITE BLOOD COUNT 14.2 K/UL (4.8-10.8)
--- NOTE | 2018-12-09 06:59 | NUR ---
RESPIRATORY NOTE: Received patient on ordered vent settings. Patient tracheostomy tube is patent and secured. Suctioned patient PRN. No resp distress noted. Vent alarms are on and audible. Vent is plugged into red outlet. Will monitor patient progress.
--- NOTE | 2018-12-09 07:15 | NUR ---
HAND-OFF: Report given to Stephani Reyes RN.
--- NOTE | 2018-12-09 07:16 | NUR ---
NURSE NOTES: Received patient from ODILIA Velazquez. Patient vital signs stable at this time with no sign of acute distress. Patient sleeping at this time. Patient opens eyes spontaneously but does not track. Patient showing sinus rhythm on the monitor at this time. Patient on trach to ventilator setting of AC 16, TV 600, FiO2 35%, and PEEP 5. Patient tolerating setting with FiO2 99%. Patient has G tube that is patent, asymptomatic, and running Jevity 1.2 at 30mL/hr at this time. Patient feeding held for Synthroid administration this morning. Feeding restarted at 0715 this morning. Patient has a condom catheter that is patent and asymptomatic at this time. Patient upper and lower extremities contracted. Patient skin intact. Patient has a right forearm 22G PIV that is patent and asymptomatic and saline locked at this time. Patient bed in low position with bed alarm on and call light in reach at this time. Addendum: 12/09/18 at 0757 by Marge Reyes RN Patient side rails padded at this time for history of seizure.
[2018-12-09 07:32] LABS: ALBUMIN 2.6 G/DL (3.4-5.0); ANION GAP 13 mmol/L (5-15); BLOOD UREA NITROGEN 30 mg/dL (7-18); CALCIUM 9.6 MG/DL (8.5-10.1); CARBON DIOXIDE 21 MMOL/L (21-32); CHLORIDE 98 MMOL/L (98-107); CREATININE 1.3 MG/DL (0.55-1.30); PHOSPHORUS 3.9 MG/DL (2.5-4.9); POTASSIUM 4.6 MMOL/L (3.5-5.1); SODIUM 132 MMOL/L (136-145)
--- NOTE | 2018-12-09 07:58 | NUR ---
NURSE NOTES:WOUND CARE NOTES:Pt presented on admission with multiple non-blanchable red areas over bony prominences. Non-blanchable erythema noted to coccyx (L)2.5cm x (W)1.5cm. periwound without induration or fluctuance. Non-blanchable erythema without induration noted to lumbar spine (L)1.5cm x (W)2cm. Periwound without induration . Non-blanchable erythema without fluctuance/induration R lateral malleolus (L)0.7cm x (W)0.9cm periwound without erythema.Non-blanchable erythema without fluctuance/induration L lateral malleolus. R and L heels are soft ,pink and easily blanchable. Recommendations:Apply Cavilon Skin Barrier to R and L malleoli and both heels .Cover each site with Optifoam drsgs. Change weekly and prn. Apply Triad Paqste to lumbar and sacral areas .Cover with Optifoam drsg .Change every 3 days and prn. Reposition at least every 2hours or as tolerated. Off-load heels with pillow.
[2018-12-09 08:00] VITALS: BP 111/69
[2018-12-09] MEDS: Pantoprazole Inj IV SCH (08:56)
[2018-12-09] MEDS: Sucralfate 1gm tab GT SCH ×4 (08:56→20:41)
--- NOTE | 2018-12-09 09:00 | NUR ---
NURSE NOTES: Venous duplex complete. No acute DVT present. Patient does have a chronic left leg DVT.
[2018-12-09] MEDS: Heparin 5000 units/ml inj SUBQ SCH ×2 (09:01→20:44)
--- NOTE | 2018-12-09 09:35 | NUR ---
RADIOLOGY DEPT., CHEST X-RAY DONE.-P.DYE
--- NOTE | 2018-12-09 10:20 | NUR ---
NURSE NOTES: Patient cleaned and repositioned at this time. Upon turning, several stage one pressure ulcers were noted on the spine and ankles. Will follow up with wound care nurse to confirm.
--- NOTE | 2018-12-09 10:30 | Pulmonolgy Critical Care Note ---
Critical Care - Asmt/Plan Problems: (1) Respiratory failure, [id number] (2) Aspiration pneumonia (3) Severe sepsis (4) Anemia (5) Psychosis (6) Hypothyroidism (7) Severe protein-calorie malnutrition (8) Feeding by G-tube Respiratory: monitor respiratory rate, adjust FIO2, CXR Cardiac: continue pressors, continue to monitor HR/BP Renal: F/U I&O, keep IV fluid, check electrolytes Infectious Disease: check cultures Gastrointestinal: continue feedings/current rate Endocrine: monitor blood sugar, continue sliding scale insulin Hematologic: monitor H/H, transfuse if hgb<8.5 Neurologic: PRN Ativan, PRN Morphine, keep patient comfortable Affect: PRN ativan Time Spent (Minutes): 40 Notes Reviewed: cardio, 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 with: consultants, briefcase sewercustomer 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 - Objective Last 24 Hour Vital Signs Date Time Temp Pulse Resp B/P (MAP) Pulse Ox O2 Delivery O2 Flow Rate FiO2 12/09/18 08:00 98.4 100 22 111/69 (83) 100 12/09/18 08:00 Mechanical Ventilator 12/09/18 08:00 93 12/09/18 08:00 35 12/09/18 06:59 93 20 35 12/09/18 05:13 96 25 35 12/09/18 04:00 Mechanical Ventilator 12/09/18 04:00 98.3 84 17 151/87 (108) 97 12/09/18 04:00 35 12/09/18 03:40 95 25 35 12/09/18 03:39 89 12/09/18 01:20 94 17 35 12/09/18 00:00 98.3 89 22 122/89 (100) 96 12/09/18 00:00 35 12/09/18 00:00 Mechanical Ventilator 12/08/18 23:42 93 12/08/18 22:30 96 20 35 12/08/18 21:08 97 18 35 12/08/18 20:00 Mechanical Ventilator 12/08/18 20:00 98.7 96 17 103/76 (85) 99 12/08/18 19:27 94 12/08/18 18:50 95 17 35 12/08/18 17:00 Mechanical Ventilator 12/08/18 17:00 15.0 36 12/08/18 17:00 98.2 92 21 133/65 (87) 100 12/08/18 17:00 92 12/08/18 17:00 Mechanical Ventilator 12/08/18 16:50 97.3 80 23 144/88 100 Mechanical Ventilator 15.0 36 12/08/18 16:30 88 22 36 12/08/18 16:12 15.0 36 12/08/18 16:11 97.3 80 23 144/88 100 Mechanical Ventilator 15.0 36 12/08/18 16:11 15.0 36 12/08/18 16:09 Mechanical Ventilator 12/08/18 15:39 15.0 36 12/08/18 15:08 87 25 36 12/08/18 14:15 97.3 83 16 122/80 100 Mechanical Ventilator 36 12/08/18 13:30 83 18 36 12/08/18 13:26 97.3 101 16 114/65 90 Mechanical Ventilator 36 12/08/18 13:20 83 18 Mechanical Ventilator 15.0 40 Status: awake Condition: critical HEENT: atraumatic Neck: full ROM, trach Lungs: rales, rhonchi Heart: HR/BP stable, HR/BP unstable Abdomen: soft, non-tender Extremities: edema Decubiti: location Critical Care - Subjective ROS Limited/Unobtainable: Yes Interval Events: 68 year old male with hx of chronic respiratory failure, feeding by Gtube, bed bound, hypothyroidism, psychosis, UGI bleeding, in the past, presented to ER b/ o persistent leukocytosis. Pt received abx in the snf but continued to have leukocytosis. FI02: 35 Vent Support Breath Rate: 16 Vent Support Mode: AC Vent Tidal Volume: 600 Sputum Amount: Small PEEP: 5.0 PIP: 22 Tube Feeding Amount: 30 I&O: Intake and Output 12/08/18 12/09/18 19:00 07:00 Intake Total 80 ml 590 ml Output Total 400 ml Balance 80 ml 190 ml Intake Free Water 50 ml 100 ml IV Total 220 ml Tube Feeding 30 ml 270 ml Output Urine Total 400 ml # Voids 1 # Bowel Movements 4 Labs: Laboratory Tests Test 12/08/18 13:40 12/08/18 13:55 12/08/18 15:10 12/09/18 05:35 Sodium Level 132 MMOL/L (136-145) L 132 MMOL/L (136-145) L Potassium Level 4.5 MMOL/L (3.5-5.1) 4.6 MMOL/L (3.5-5.1) Chloride Level 95 MMOL/L (98-107) L 98 MMOL/L (98-107) Carbon Dioxide Level 25 MMOL/L (21-32) 21 MMOL/L (21-32) Anion Gap 12 mmol/L (5-15) 13 mmol/L (5-15) Blood Urea Nitrogen 35 mg/dL (7-18) H 30 mg/dL (7-18) H Creatinine 1.3 MG/DL (0.55-1.30) 1.3 MG/DL (0.55-1.30) Estimat Glomerular Filtration Rate 54.6 mL/min (>60) 54.6 mL/min (>60) Glucose Level 114 MG/DL (74-106) H 109 MG/DL (74-106) H Lactic Acid Level 2.20 mmol/L (0.4-2.0) H 1.10 mmol/L (0.66-2.22) Calcium Level 9.8 MG/DL (8.5-10.1) 9.6 MG/DL (8.5-10.1) Total Bilirubin 0.2 MG/DL (0.2-1.0) Aspartate Amino Transf (AST/SGOT) 24 U/L (15-37) Alanine Aminotransferase (ALT/SGPT) 26 U/L (12-78) Alkaline Phosphatase 136 U/L (46-116) H Total Creatine Kinase 65 U/L (26-308) Creatine Kinase MB 1.4 NG/ML (0.0-3.6) Creatine Kinase MB Relative Index 2.1 Troponin I 0.017 ng/mL (0.000-0.056) Pro-B-Type Natriuretic Peptide 309 pg/mL (0-125) H Total Protein 8.9 G/DL (6.4-8.2) H Albumin 3.0 G/DL (3.4-5.0) L 2.6 G/DL (3.4-5.0) L Globulin 5.9 g/dL Albumin/Globulin Ratio 0.5 (1.0-2.7) L White Blood Count 18.3 K/UL (4.8-10.8) H 14.2 K/UL (4.8-10.8) H Red Blood Count 3.81 M/UL (4.70-6.10) L 3.29 M/UL (4.70-6.10) L Hemoglobin 10.5 G/DL (14.2-18.0) L 9.0 G/DL (14.2-18.0) L Hematocrit 31.6 % (42.0-52.0) L 27.8 % (42.0-52.0) L Mean Corpuscular Volume 83 FL (80-99) 84 FL (80-99) Mean Corpuscular Hemoglobin 27.5 PG (27.0-31.0) 27.2 PG (27.0-31.0) Mean Corpuscular Hemoglobin Concent 33.1 G/DL (32.0-36.0) 32.2 G/DL (32.0-36.0) Red Cell Distribution Width 15.1 % (11.6-14.8) H 15.1 % (11.6-14.8) H Platelet Count 579 K/UL (150-450) H 499 K/UL (150-450) H Mean Platelet Volume 6.9 FL (6.5-10.1) 6.4 FL (6.5-10.1) L Neutrophils (%) (Auto) % (45.0-75.0) 71.8 % (45.0-75.0) Lymphocytes (%) (Auto) % (20.0-45.0) 15.1 % (20.0-45.0) L Monocytes (%) (Auto) % (1.0-10.0) 8.7 % (1.0-10.0) Eosinophils (%) (Auto) % (0.0-3.0) 3.7 % (0.0-3.0) H Basophils (%) (Auto) % (0.0-2.0) 0.8 % (0.0-2.0) Differential Total Cells Counted 100 Neutrophils % (Manual) 70 % (45-75) Lymphocytes % (Manual) 14 % (20-45) L Monocytes % (Manual) 12 % (1-10) H Eosinophils % (Manual) 4 % (0-3) H Basophils % (Manual) 0 % (0-2) Band Neutrophils 0 % (0-8) Platelet Estimate Increased H Platelet Morphology Normal Anisocytosis 1+ Urine Color Yellow Urine Appearance Clear Urine pH 7 (4.5-8.0) Urine Specific [place] 1.005 (1.005-1.035) Urine Protein 2+ (NEGATIVE) H Urine Glucose (UA) Negative (NEGATIVE) Urine Ketones Negative (NEGATIVE) Urine Blood Negative (NEGATIVE) Urine Nitrite Negative (NEGATIVE) Urine Bilirubin Negative (NEGATIVE) Urine Urobilinogen Normal MG/DL (0.0-1.0) Urine Leukocyte Esterase 3+ (NEGATIVE) H Urine RBC 0 /HPF (0 - 0) Urine WBC 5-10 /HPF (0 - 0) H Urine Squamous Epithelial Cells Occasional /LPF Urine Bacteria Occasional /HPF (NONE) Phosphorus Level 3.9 MG/DL (2.5-4.9) Huma Keating MD Dec 09, 2018 10:30
--- NOTE | 2018-12-09 10:36 | NUR ---
RD ASSESSMENT & RECOMMENDATIONS SEE CARE ACTIVITY FOR COMPLETE ASSESSMENT DAILY ESTIMATED NEEDS: Needs based on Critical care, underweight, TF ANIMAL CARE SPECIALIST 56.8kg 30-35 kcals/kg 5356-2220 total kcals 1.2-2 g protein/kg 68-114 g total protein 25-30 mL/kg 5385-3692 total fluid mLs NUTRITION DIAGNOSIS: Swallowing difficulty R/T respiratory status as evidenced by pt vent dep via trach, PEG dep. CURRENT TF: Jevity 1.2 @ 30ml/hr x 22 hrs ENTERAL NUTRITION RECOMMENDATIONS: Osmolite 1.2 @ 60ml/hr x 22 hrs to provide 1320ml, 1980kcal, 83g prot, 1006ml free water * REC TF CHANGE TO OSMOLITE 1.5 TO BETTER MEET EST NEEDS * Start Osmolite 1.5 @20ml/hr for 6 hrs, advance as tolerated 10ml/hr q4-6 hrs to goal * HOLD TF 1h before and 1 after synthroid administration. * Flush per MD/ HOB over 30 degrees ------- ADDITIONAL RECOMMENDATIONS: * Calibrated bedscale weight for accurate CBW, weekly wt monitoring * Monitor need for accucheck w/ SSI- h/o DM + hyperglycemia * Monitor lytes w/ TF, replete as needed * F/up w/ H&P .
--- NOTE | 2018-12-09 10:57 | Diagnostic Imaging Report ---
Indication: Chest pain Technique: One view of the chest Comparison: 11/08/2018 Findings: Tracheostomy again demonstrated. There is some atelectasis at the right lung base. Normal heart size. Tortuous calcified aorta. Previously demonstrated PICC is no longer present Impression: No acute process Right basilar atelectasis
--- NOTE | 2018-12-09 11:18 | NUR ---
NURSE NOTES: Positive blood culture with gram positive rods in one bottle reported by Laurence from laboratory. Addendum: 12/09/18 at 1301 by Marge Reyes RN Gram positive cocci. Not rods
--- NOTE | 2018-12-09 11:20 | NUR ---
NURSE NOTES: Left message for Dr Daniels regarding positive blood culture of gram positive cocci times one bottle. Awaiting call back and orders.
--- NOTE | 2018-12-09 11:45 | NUR ---
NURSE NOTES: Pictures taken of pressure injuries with wound care nurse. Wound assessment completed. Skin barrier film and Optifoam placed for protection. Orders pending wound care nurse recommendation.
[2018-12-09 12:00] VITALS: BP 135/64
--- NOTE | 2018-12-09 14:51 | NUR ---
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
--- NOTE | 2018-12-09 15:18 | Consultation ---
History of Present Illness General Date patient seen: Dec 09, 2018 Chief Complaint: Abnormal Labs Present Illness HPI 68 y/o M with hx of HTN, CVA/TIA w/ hemiplegia, functional quadriplegia, chronic encephalopathy, CAD, CHF, hypothyroidism, chronic resp failure trach/ vent dependent, dysphagia s/p G-tube, Dm2, ESBL UTI 07/2018, GIB s/p multiple EGDs in the past, hx of severe esophagitis, schizoaffective disease, alf resident, multiple admissions presents to ED on 12/08 with leukocytosis. Of note, patient admitted here on 10/28-11/08 for leukocytosis and hyperkalemia. Found to have sepsis likely 2ry to UTI and tracheobronchitis Also admitted here from 10/02-10/09 for recurrent episode of coffee ground emesis and probable Providencia UTi Allergies: Coded Allergies: NO KNOWN DRUG ALLERGIES (Verified Allergy, Unknown, 09/11/16) Medication History Scheduled Cran/Vitc/Mannose/Inulin/Brom (Uti-Stat Liquid), 3,875 MG GT BID, (Reported) Docusate Sodium* (Docusate Sodium*), 100 MG GT DAILY, (Reported) Ipratropium/Albuterol Sulfate (DuoNeb 0.5-3(2.5)mg/3ml), 3 ML HHN Q6HR, ( Reported) Lansoprazole* (Lansoprazole*), 30 MG GT BID Levothyroxine Sodium* (Levothyroxine Sodium*), 75 MCG GT DAILY Magnesium Hydroxide* (Milk Of Magnesia*), 30 ML GT HS, (Reported) Multivitamin Liquid* (Multi-Delyn*), 15 ML GT DAILY, (Reported) Sucralfate* (Carafate*), 1 GM GT FOUR TIMES A DAY, (Reported) [vitamin c liquid], 5 ML GT DAILY, (Reported) Scheduled PRN Acetaminophen (Acetaminophen), 640 MG GT Q4HR PRN for Prn Headache/Temp > 101, ( Reported) Bisacodyl (Dulcolax), 10 MG RC NEEDED PRN for IF MOM INEFFECTIVE, (Reported) Na Phos,M-B/Na Phos,Di-Ba* (Fleet Enema*), 133 ML RECTAL QOD PRN for IF DUCOLAX INEFFETIVE, (Reported) Discontinued Medications Levothyroxine Sodium* (Levothyroxine Sodium*), 50 MCG GT DAILY, (Reported) Discontinued Reason: Medication dose changed Omeprazole (Omeprazole), 20 MG ORAL DAILY, (Reported) Discontinued Reason: Pt stopped taking med Unable to Obtain Medications (Unable To Obtain Meds), (Reported) Discontinued Reason: Pt stopped taking med Patient History Healthcare decision maker Resuscitation status Advanced Directive on File No Patient History Narrative Pmhx: as above Shx: reviewed Fhx non contributory Review of Systems All Other Systems: negative except mentioned in HPI Physical Exam Physical Exam Narrative Status: awake Condition: critical HEENT: atraumatic Neck: full ROM, trach Lungs: rales, rhonchi Heart: HR/BP stable, HR/BP unstable Abdomen: soft, non-tender Extremities: edema Decubiti: location Last 24 Hour Vital Signs Date Time Temp Pulse Resp B/P (MAP) Pulse Ox O2 Delivery O2 Flow Rate FiO2 12/09/18 13:11 95 18 35 12/09/18 12:00 Mechanical Ventilator 12/09/18 12:00 105 12/09/18 12:00 35 12/09/18 12:00 99.1 100 20 135/64 (87) 95 12/09/18 11:09 99 18 35 12/09/18 09:22 92 20 35 12/09/18 08:00 98.4 100 22 111/69 (83) 100 12/09/18 08:00 Mechanical Ventilator 12/09/18 08:00 93 12/09/18 08:00 35 12/09/18 06:59 93 20 35 12/09/18 05:13 96 25 35 12/09/18 04:00 Mechanical Ventilator 12/09/18 04:00 98.3 84 17 151/87 (108) 97 12/09/18 04:00 35 12/09/18 03:40 95 25 35 12/09/18 03:39 89 12/09/18 01:20 94 17 35 12/09/18 00:00 98.3 89 22 122/89 (100) 96 12/09/18 00:00 35 12/09/18 00:00 Mechanical Ventilator 12/08/18 23:42 93 12/08/18 22:30 96 20 35 12/08/18 21:08 97 18 35 12/08/18 20:00 Mechanical Ventilator 12/08/18 20:00 98.7 96 17 103/76 (85) 99 12/08/18 19:27 94 12/08/18 18:50 95 17 35 12/08/18 17:00 Mechanical Ventilator 12/08/18 17:00 15.0 36 12/08/18 17:00 98.2 92 21 133/65 (87) 100 12/08/18 17:00 92 12/08/18 17:00 Mechanical Ventilator 12/08/18 16:50 97.3 80 23 144/88 100 Mechanical Ventilator 15.0 36 12/08/18 16:30 88 22 36 12/08/18 16:12 15.0 36 12/08/18 16:11 97.3 80 23 144/88 100 Mechanical Ventilator 15.0 36 12/08/18 16:11 15.0 36 12/08/18 16:09 Mechanical Ventilator 12/08/18 15:39 15.0 36 12/08/18 15:08 87 25 36 Intake and Output 12/08/18 12/09/18 19:00 07:00 Intake Total 80 ml 590 ml Output Total 400 ml Balance 80 ml 190 ml Intake Free Water 50 ml 100 ml IV Total 220 ml Tube Feeding 30 ml 270 ml Output Urine Total 400 ml # Voids 1 # Bowel Movements 4 Laboratory Tests Test 12/08/18 15:10 12/09/18 05:35 Lactic Acid Level 1.10 mmol/L (0.66-2.22) White Blood Count 14.2 K/UL (4.8-10.8) H Red Blood Count 3.29 M/UL (4.70-6.10) L Hemoglobin 9.0 G/DL (14.2-18.0) L Hematocrit 27.8 % (42.0-52.0) L Mean Corpuscular Volume 84 FL (80-99) Mean Corpuscular Hemoglobin 27.2 PG (27.0-31.0) Mean Corpuscular Hemoglobin Concent 32.2 G/DL (32.0-36.0) Red Cell Distribution Width 15.1 % (11.6-14.8) H Platelet Count 499 K/UL (150-450) H Mean Platelet Volume 6.4 FL (6.5-10.1) L Neutrophils (%) (Auto) 71.8 % (45.0-75.0) Lymphocytes (%) (Auto) 15.1 % (20.0-45.0) L Monocytes (%) (Auto) 8.7 % (1.0-10.0) Eosinophils (%) (Auto) 3.7 % (0.0-3.0) H Basophils (%) (Auto) 0.8 % (0.0-2.0) Sodium Level 132 MMOL/L (136-145) L Potassium Level 4.6 MMOL/L (3.5-5.1) Chloride Level 98 MMOL/L (98-107) Carbon Dioxide Level 21 MMOL/L (21-32) Anion Gap 13 mmol/L (5-15) Blood Urea Nitrogen 30 mg/dL (7-18) H Creatinine 1.3 MG/DL (0.55-1.30) Estimat Glomerular Filtration Rate 54.6 mL/min (>60) Glucose Level 109 MG/DL (74-106) H Calcium Level 9.6 MG/DL (8.5-10.1) Phosphorus Level 3.9 MG/DL (2.5-4.9) Albumin 2.6 G/DL (3.4-5.0) L Height (Feet): 5 Height (Inches): 10.00 Weight (Pounds): 160 Medications Current Medications Medications (Trade) Dose Ordered Sig/Wanda Route PRN Reason Start Time Stop Time Status Last Admin Dose Admin Acetaminophen (Tylenol) 650 mg Q4H PRN ORAL FEVER 12/08/18 16:15 01/07/19 16:14 Albuterol/ Ipratropium (Albuterol/ Ipratropium) 3 ml Q4H PRN HHN Shortness of Breath 12/08/18 16:00 12/13/18 15:59 Cefepime HCl 1 gm/ Dextrose 100 ml @ 100 mls/hr Q12HR IVPB 12/09/18 11:00 12/16/18 10:59 12/09/18 12:16 Dextrose (Dextrose 50%) 25 ml Q30M PRN IV Hypoglycemia 12/08/18 16:15 01/07/19 16:14 Dextrose (Dextrose 50%) 50 ml Q30M PRN IV hypoglycemia 12/08/18 16:15 01/07/19 16:14 Heparin Sodium (Porcine) (Heparin 5000 units/ml) 5,000 units EVERY 12 HOURS SUBQ 12/08/18 21:00 01/07/19 20:59 12/09/18 09:01 Levothyroxine Sodium (Synthroid) 75 mcg Q24H GT 12/09/18 06:30 01/08/19 06:29 12/09/18 05:58 Lorazepam (Ativan 2mg/ml 1ml) 2 mg Q2H PRN IV For Anxiety 12/08/18 16:00 12/15/18 15:59 Morphine Sulfate (Morphine Sulfate) 4 mg Q4H PRN IVP Severe Pain (Pain Scale 7-10) 12/08/18 16:00 12/15/18 15:59 Ondansetron HCl (Zofran) 4 mg Q6H PRN IVP Nausea & Vomiting 12/08/18 16:00 01/07/19 15:59 Pantoprazole (Protonix) 40 mg DAILY IV 12/09/18 09:00 01/08/19 08:59 12/09/18 08:56 Polyethylene Glycol (Miralax) 17 gm DAILYPRN PRN ORAL Constipation 12/08/18 16:00 01/07/19 15:59 Sucralfate (Carafate) 1 gm FOUR TIMES A DAY GT 12/08/18 18:00 01/07/19 17:59 12/09/18 12:43 Vancomycin HCl (Vanco rx to dose) 1 ea DAILY PRN MISC PER PHARMACY 12/08/18 16:30 01/07/19 16:29 Vancomycin HCl 500 mg/Dextrose 110 ml @ 110 mls/hr Q12H IVPB 12/08/18 18:00 12/13/18 17:59 12/09/18 05:53 Assessment/Plan Assessment/Plan Abx: IV Vancomycin 12/08- Cefepime 12/08- Levaquinx 1 12/08 Assessment: Leukocytosis- ?UTI -u/a wbc 5-10, nit n eg, leuk +3; ucx p -CXR: No acute process. 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 diff Dysphagia s/p G-tube Anemia. CVA/TIA w/ hemiplegia functional quadriplegia chronic encephalopathy CAD CHF Dm2 GIB s/p multiple EGDs in the past hx of severe esophagitis schizoaffective disease alf resident multiple admissions VRE colonization Plan: -Continue empiric IV Vancomycin and Cefepime pending cultures -12/08 SP Levaquin x1 -11/06 SP Amikacin #6 -11/01 SP Meropenem #4 -10/29 SP IV Vanco #2, Cefepime #2 and Tigecycline #1 -10/28 SP LEavquin x1 -10/09 SP Ertapenem #5 - 10/04 SP Meropenem #2 -10/03/18 SP IV Vancomycin #2 and Cefepime #2 -08/09/ SP Bactrim #7 -08/03 SP Vancomycin and Cefepime #3 -08/01/18 SP Ceftriaxone x1 -ucx , Bcx x2 -f.u cx -Monitor CBC/CMP, temperatures -Peg/trach care -aspiration precautions Thank you for this consultation. Will continue to follow along with you. Lisy Lai M.D. Dec 09, 2018 15:18
[2018-12-09] MEDS ORDERED: NS 275ml ONE (15:49)
[2018-12-09] MEDS ORDERED: Tubing IV Secondary IV ONE (15:49)
[2018-12-09 16:00] VITALS: BP 133/69
--- NOTE | 2018-12-09 16:00 | NUR ---
NURSE NOTES: Patient has fever of 100. Cooling measures applied.
--- NOTE | 2018-12-09 16:40 | Diagnostic Imaging Report ---
APPROVED REPORT CPT Code: 66706 Present Symptoms Shortness of breath Comments: Technically difficult study (patient has BLE contractures of the hip and knee). RIGHT LEG: Venous imaging reveals a patent deep venous system. There is no evidence of thrombus within the femoral, popliteal or tibial segments. The greater saphenous vein is also within normal limits. Doppler indicates normal spontaneous flow within these segments. LEFT LEG: Venous imaging reveals recanalized chronic thrombus in the superficial femoral vein. Large collateral vein noted anterior to the superficial femoral artery. The remainder of the deep venous system is within normal limits. There is no evidence of thrombus in the common femoral, popliteal or calf veins. The greater saphenous vein is also within normal limits. Doppler indicates normal spontaneous flow within these segments. There is no evidence of acute deep vein thrombosis.
--- NOTE | 2018-12-09 17:00 | NUR ---
NURSE NOTES: Temp now 98.4.
--- NOTE | 2018-12-09 19:01 | NUR ---
HAND-OFF: Report given to ODILIA Membreno. Patient VS stable at this time with no sign of acute distress. Urine culture needs to be collected. Endorsed to follow up.
--- NOTE | 2018-12-09 19:02 | NUR ---
NURSE NOTES: BEDSIDE REPORT RECEIVED FROM ODILIA BLAND. PT IS NONVERBAL, OPENS EYES SPONTANEOUSLY, AND RESPONDS TO TACTILE STIMULATION. FOOD SERVICES COORDINATOR SHOWING NSR/ST. VENTILATOR PORTEX 8, AC 16, TV 600, FIO2 35, PEEP 5; TOLERATING VENT SETTINGS WELL. JEVITY 1.2 @ 30, NO RESIDUAL. SKIN IS CLEAN, DRY, DRESSINGS INTACT. CONDOM CATH DRAINING YELLOW URINE. RFA 22G; ASYMPTOMATIC. LABS MD SHAKA AWARE OF SODIUM NO NEW ORDERS. URINALYSIS ORDERED TO DETERMINE ORGANISM OF UTI, WILL SEND HILARIA. BED IS LOCKED IN LOWEST POSITION, SR X3, CALL AYALA W/ IN REACH, BED ALARM ON, SZ PRECAUTIONS CTND. WILL CONTINUE TO MONITOR AND FOLLOW W/ PLAN OF CARE.
[2018-12-09 21:00] VITALS: BP 148/76
--- NOTE | 2018-12-09 22:00 | History and Physical Report ---
DATE OF ADMISSION: 12/08/2018 DATE AND TIME SEEN: 12/09/2018 at 2 p.m. CONSULTANTS: 1. Huma Keating M.D. 2. Cesario Daniels M.D CHIEF COMPLAINT: Shortness of breath, respiratory failure, pneumonia, sepsis. BRIEF HISTORY: This is a 68-year-old male from [facility] presented with increased shortness of breath, lethargy, was found to have pneumonia and sepsis, admitted to [facility] for further care. Currently, trach and also lethargic and nonverbal. REVIEW OF SYSTEMS: Nonverbal. PAST MEDICAL HISTORY: Includes respiratory failure, malnutrition, contracture, hypothyroid, encephalopathy, Alzheimer dementia, renal failure. PAST SURGICAL HISTORY: G-tube and trach. ALLERGIES: Denies. SOCIAL HISTORY: Unable to obtain secondary to the patient's condition. PHYSICAL EXAMINATION: GENERAL: Lethargic in bed, nonverbal, trach, vent, altered. VITAL SIGNS: Temperature is 99, pulse 100, respirations 20, blood pressure 135/64. CARDIOVASCULAR: No murmurs. LUNGS: Distant and clear. ABDOMEN: Bowel sounds positive. Nontender. Nondistended. EXTREMITIES: No cyanosis, clubbing, or edema. NEUROLOGIC: The patient is flaccid in bed, not responding to questions. LABORATORY AND DIAGNOSTIC DATA: White count 14, hemoglobin and hematocrit 9/27, platelets 499. BMP shows sodium 132, BUN 30, glucose 109, albumin 2.6. MEDICATIONS: Include cefepime, pantoprazole, vancomycin, levothyroxine, sucralfate, albuterol, polyethylene glycol, Zofran, lorazepam, morphine. ASSESSMENT: 1. Respiratory failure. 2. Pneumonia. 3. Sepsis. 4. Contracture. 5. Anemia. 6. Malnutrition. 7. Hypothyroid. 8. Encephalopathy. 9. Alzheimer's. 10. Renal failure. PLAN: 1. Vent support. 2. Antibiotics per Infectious Disease. 3. Blood pressure control. 4. Resume home medications. 5. Dietary followup. 6. Check labs in a.m. 7. We will continue to follow the patient. Gato Viveros D.O. DR: JACKIE JOB#: [id number] CC:
[2018-12-09] MEDS ORDERED: Vancomycin 1 GM in D5W 275 ML IV SCH (23:00)
[2018-12-10] VITALS: BP 160/60
[2018-12-10 04:00] VITALS: BP 111/75
[2018-12-10 04:16] LABS: BASOPHILS % (AUTO) 1.1 % (0.0-2.0); EOSINOPHILS % (AUTO) 2.6 % (0.0-3.0); HEMATOCRIT 27.2 % (42.0-52.0); LYMPHOCYTES % (AUTO) 14.5 % (20.0-45.0); MEAN CORPUSCULAR VOLUME 84 FL (80-99); MONOCYTES % (AUTO) 9.7 % (1.0-10.0); NEUTROPHILS % (AUTO) 72.2 % (45.0-75.0); PLATELET COUNT 458 K/UL (150-450); RED BLOOD COUNT 3.23 M/UL (4.70-6.10); RED CELL DISTRIBUTION WIDTH 14.8 % (11.6-14.8); WHITE BLOOD COUNT 13.2 K/UL (4.8-10.8)
[2018-12-10 04:40] LABS: ALANINE AMINOTRANSFERASE 14 U/L (12-78); ALBUMIN 2.6 G/DL (3.4-5.0); ALBUMIN/GLOBULIN RATIO 0.5 (1.0-2.7); ALKALINE PHOSPHATASE 114 U/L (46-116); ANION GAP 12 mmol/L (5-15); ASPARTATE AMINO TRANSFERASE 13 U/L (15-37); BILIRUBIN,TOTAL 0.3 MG/DL (0.2-1.0); BLOOD UREA NITROGEN 23 mg/dL (7-18); CALCIUM 9.4 MG/DL (8.5-10.1); CARBON DIOXIDE 22 MMOL/L (21-32); CHLORIDE 98 MMOL/L (98-107); CREATININE 1.2 MG/DL (0.55-1.30); POTASSIUM 4.4 MMOL/L (3.5-5.1); SODIUM 131 MMOL/L (136-145)
[2018-12-10 05:38] LABS: PHOSPHORUS 3.6 MG/DL (2.5-4.9)
[2018-12-10] MEDS: Vancomycin 500mg/D5W 110ml IVPB SCH ×4 (06:20→18:21)
--- NOTE | 2018-12-10 07:24 | NUR ---
HAND-OFF: Report given to ODILIA MACKEY.
--- NOTE | 2018-12-10 07:25 | NUR ---
NURSE NOTES: Report received from Temi Ni RN.Pt asleep in bed noted no resp distress with trach tube to vent,on current settings,tolerating well,no signs of pain or discomfort,SR on the monitor ,GTF Jevity 1.2 at 30 ml/hr,no residual,,condom cath in placed,IV site to RFA intact skin warm and dry,SR up x2 HOB elevated,bed lock in lowest position,will continue with plans of care.
[2018-12-10 08:00] VITALS: BP 118/55
[2018-12-10] MEDS: Heparin 5000 units/ml inj SUBQ SCH ×2 (09:14→20:36)
[2018-12-10] MEDS: Sucralfate 1gm tab GT SCH ×4 (09:15→20:31)
[2018-12-10] MEDS: Pantoprazole Inj IV SCH (09:15)
--- NOTE | 2018-12-10 10:59 | Pulmonolgy Critical Care Note ---
Critical Care - Asmt/Plan Problems: (1) Respiratory failure, [id number] (2) Aspiration pneumonia (3) Severe sepsis (4) Anemia (5) Psychosis (6) Hypothyroidism (7) Severe protein-calorie malnutrition (8) Feeding by G-tube Respiratory: monitor respiratory rate, adjust FIO2, CXR Cardiac: continue to monitor HR/BP Renal: F/U I&O, check electrolytes Infectious Disease: check cultures Gastrointestinal: continue feedings/current rate Endocrine: monitor blood sugar Hematologic: monitor H/H, transfuse if hgb<8.5 Neurologic: PRN Morphine, keep patient comfortable Affect: PRN ativan Prophylaxis: Protonix, Heparin Notes Reviewed: 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 operator, 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 with: consultants, briefcase sewerproduct marketing programs manager - Objective Last 24 Hour Vital Signs Date Time Temp Pulse Resp B/P (MAP) Pulse Ox O2 Delivery O2 Flow Rate FiO2 12/10/18 09:29 89 16 30 12/10/18 08:00 99.0 82 16 118/55 (76) 98 12/10/18 06:56 81 16 30 12/10/18 04:40 83 16 30 12/10/18 04:00 35 12/10/18 04:00 Mechanical Ventilator 12/10/18 04:00 85 12/10/18 04:00 98.9 84 18 111/75 (87) 100 12/10/18 03:30 92 18 30 12/10/18 01:30 91 18 30 12/10/18 00:00 35 12/10/18 00:00 Mechanical Ventilator 12/10/18 00:00 97.3 90 22 160/60 (93) 97 12/10/18 00:00 86 12/09/18 23:30 90 17 30 12/09/18 21:27 92 17 30 12/09/18 21:00 98.2 80 22 148/76 (100) 100 12/09/18 21:00 35 12/09/18 21:00 Mechanical Ventilator 12/09/18 21:00 89 12/09/18 19:30 90 18 30 12/09/18 17:05 92 18 35 12/09/18 16:00 92 12/09/18 16:00 Mechanical Ventilator 12/09/18 16:00 100.0 89 16 133/69 (90) 99 12/09/18 16:00 35 12/09/18 15:04 97 18 35 4/1/19 13:11 95 18 35 12/09/18 12:00 Mechanical Ventilator 12/09/18 12:00 105 12/09/18 12:00 35 12/09/18 12:00 99.1 100 20 135/64 (87) 95 12/09/18 11:09 99 18 35 Status: awake Condition: critical HEENT: atraumatic Neck: full ROM Lungs: rales, rhonchi Heart: HR/BP stable Abdomen: soft, active bowel sounds Extremities: edema Micro: Microbiology Date/Time Source Procedure Growth Status 12/08/18 13:55 Blood Blood Culture - Preliminary NO GROWTH AFTER 24 HOURS Resulted 12/08/18 13:40 Blood Blood Culture - Preliminary Staphylococcus Sp Coag Neg Resulted 12/09/18 03:45 Sputum Gram Stain Pending Resulted 12/09/18 03:45 Sputum Culture - Preliminary Gram Negative Bacillus 1 Resulted 12/08/18 15:15 Nasal Nares MRSA Culture - Final NO METHICILLIN RESISTANT STAPH AUREUS... Complete 12/09/18 16:47 Urine,Clean Catch Urine Culture - Preliminary NO GROWTH AFTER 24 HOURS Resulted 12/08/18 15:15 Rectum VRE Culture - Final Enterococcus Faecalis - Vre Complete 12/08/18 15:15 Rectum - Final NO CARBAPENEM-RESISTANT ENTEROBACTERI... Complete Critical Care - Subjective ROS Limited/Unobtainable: Yes Condition: critical EKG Rhythm: Sinus Rhythm FI02: 30 Vent Support Breath Rate: 16 Vent Support Mode: AC Vent Tidal Volume: 600 Sputum Amount: Small PEEP: 5.0 PIP: 25 Tube Feeding Amount: 30 I&O: Intake and Output 12/09/18 12/10/18 19:00 07:00 Intake Total 770 ml 450 ml Output Total 825 ml 350 ml Balance -55 ml 100 ml Intake Free Water 200 ml 80 ml IV Total 210 ml 100 ml Tube Feeding 360 ml 270 ml Output Urine Total 825 ml 350 ml # Voids 1 # Bowel Movements 2 CXR: RLL infiltrate Labs: Laboratory Tests Test 12/10/18 03:50 White Blood Count 13.2 K/UL (4.8-10.8) H Red Blood Count 3.23 M/UL (4.70-6.10) L Hemoglobin 9.0 G/DL (14.2-18.0) L Hematocrit 27.2 % (42.0-52.0) L Mean Corpuscular Volume 84 FL (80-99) Mean Corpuscular Hemoglobin 27.7 PG (27.0-31.0) Mean Corpuscular Hemoglobin Concent 33.0 G/DL (32.0-36.0) Red Cell Distribution Width 14.8 % (11.6-14.8) Platelet Count 458 K/UL (150-450) H Mean Platelet Volume 6.8 FL (6.5-10.1) Neutrophils (%) (Auto) 72.2 % (45.0-75.0) Lymphocytes (%) (Auto) 14.5 % (20.0-45.0) L Monocytes (%) (Auto) 9.7 % (1.0-10.0) Eosinophils (%) (Auto) 2.6 % (0.0-3.0) Basophils (%) (Auto) 1.1 % (0.0-2.0) Erythrocyte Sedimentation Rate 110 MM/HR (0-20) H Sodium Level 131 MMOL/L (136-145) L Potassium Level 4.4 MMOL/L (3.5-5.1) Chloride Level 98 MMOL/L (98-107) Carbon Dioxide Level 22 MMOL/L (21-32) Anion Gap 12 mmol/L (5-15) Blood Urea Nitrogen 23 mg/dL (7-18) H Creatinine 1.2 MG/DL (0.55-1.30) Estimat Glomerular Filtration Rate 59.9 mL/min (>60) Glucose Level 121 MG/DL (74-106) H Calcium Level 9.4 MG/DL (8.5-10.1) Phosphorus Level 3.6 MG/DL (2.5-4.9) Magnesium Level 2.0 MG/DL (1.8-2.4) Total Bilirubin 0.3 MG/DL (0.2-1.0) Aspartate Amino Transf (AST/SGOT) 13 U/L (15-37) L Alanine Aminotransferase (ALT/SGPT) 14 U/L (12-78) Alkaline Phosphatase 114 U/L (46-116) C-Reactive Protein, Quantitative 12.4 mg/dL (0.00-0.90) H Total Protein 7.9 G/DL (6.4-8.2) Albumin 2.6 G/DL (3.4-5.0) L Globulin 5.3 g/dL Albumin/Globulin Ratio 0.5 (1.0-2.7) L Vancomycin Level Trough 15.0 ug/mL (5.0-12.0) H Huma Keating MD Dec 10, 2018 10:59
--- NOTE | 2018-12-10 11:46 | NUR ---
SCREW DOWNPEWTER CASTER SI:PNA VS: BP 118/51, P 89, T 99.0, RR 16, SpO2 98 on VENT AC 16, TV 600, PEEP 5.0, FiO2 30 WBC 13.2, RBC 3.23. Hgb 9.0, Hct 27.2, Na 131, BUN 23 IS:CEFEPIME 100ml IVPB PROTONIX 40mg IV SYNTHROID 75mcg GT HEPARIN SUBQ SUCRALFATE 1gm GT VANCOMYCIN 110ml SDU STATUS
[2018-12-10 12:00] VITALS: BP 110/73
--- NOTE | 2018-12-10 12:00 | NUR ---
NURSE NOTES: Pt turned and repositioned ,oral /tracheal secretions suctioned PRN.
--- NOTE | 2018-12-10 13:00 | NUR ---
NURSE NOTES: Dr Hubbard at bedside,ordered to discontinue Valente,transfer pt to Tele and change the diet since pt c/o that he doesnt like pureed food . Addendum: 12/10/18 at 1927 by KEY PATTERSON RN wrong documentation,notes for sona pt.
--- NOTE | 2018-12-10 14:02 | NUR ---
*-*INSURANCE *-* ALL CLINICALS HAVE BEEN [facility]XED [facility]: JOSE Soares P- [phone] F- [phone]...REVIEW/CLINICAL
--- NOTE | 2018-12-10 14:20 | General Progress Note ---
Assessment/Plan Problem List: (1) Severe sepsis ICD Codes: A41.9 - Sepsis, unspecified organism; R65.20 - Severe sepsis without septic shock SNOMED: 28282033 (2) Severe protein-calorie malnutrition ICD Codes: E43 - Unspecified severe protein-calorie malnutrition SNOMED: 841015531 (3) Feeding by G-tube ICD Codes: Z93.1 - Gastrostomy status SNOMED: 822321460, 965731267 (4) Respiratory failure, cqeqh-ut-faibgzz ICD Codes: J96.20 - Respiratory failure, [id number] SNOMED: 27482069 (5) Anemia ICD Codes: D64.9 - Anemia, unspecified SNOMED: 600398453 (6) Aspiration pneumonia ICD Codes: J69.0 - Pneumonitis due to inhalation of food and vomit SNOMED: 517805437 (7) Acute renal failure ICD Codes: N17.9 - Acute kidney failure, unspecified SNOMED: 80481752 Status: unchanged Assessment/Plan vent abx cbc bmp am Subjective Constitutional: Reports: weakness Allergies: Coded Allergies: NO KNOWN DRUG ALLERGIES (Verified Allergy, Unknown, 09/11/16) All Systems: reviewed and negative except above Subjective trach vent altered Objective Last 24 Hour Vital Signs Date Time Temp Pulse Resp B/P (MAP) Pulse Ox O2 Delivery O2 Flow Rate FiO2 12/10/18 13:08 79 16 30 12/10/18 12:00 35 12/10/18 12:00 Mechanical Ventilator 12/10/18 12:00 82 12/10/18 12:00 99.3 82 16 110/73 (85) 99 12/10/18 11:03 85 16 30 12/10/18 09:29 89 16 30 12/10/18 08:00 80 12/10/18 08:00 35 12/10/18 08:00 99.0 82 16 118/55 (76) 98 12/10/18 08:00 Mechanical Ventilator 12/10/18 06:56 81 16 30 12/10/18 04:40 83 16 30 12/10/18 04:00 35 12/10/18 04:00 Mechanical Ventilator 12/10/18 04:00 85 12/10/18 04:00 98.9 84 18 111/75 (87) 100 12/10/18 03:30 92 18 30 12/10/18 01:30 91 18 30 12/10/18 00:00 35 12/10/18 00:00 Mechanical Ventilator 12/10/18 00:00 97.3 90 22 160/60 (93) 97 12/10/18 00:00 86 12/09/18 23:30 90 17 30 12/09/18 21:27 92 17 30 12/09/18 21:00 98.2 80 22 148/76 (100) 100 12/09/18 21:00 35 12/09/18 21:00 Mechanical Ventilator 12/09/18 21:00 89 12/09/18 19:30 90 18 30 12/09/18 17:05 92 18 35 12/09/18 16:00 92 12/09/18 16:00 Mechanical Ventilator 12/09/18 16:00 100.0 89 16 133/69 (90) 99 12/09/18 16:00 35 12/09/18 15:04 97 18 35 Intake and Output 12/09/18 12/10/18 19:00 07:00 Intake Total 770 ml 450 ml Output Total 825 ml 350 ml Balance -55 ml 100 ml Intake Free Water 200 ml 80 ml IV Total 210 ml 100 ml Tube Feeding 360 ml 270 ml Output Urine Total 825 ml 350 ml # Voids 1 # Bowel Movements 2 Laboratory Tests 12/10/18 03:50: White Blood Count 13.2H, Red Blood Count 3.23L, Hemoglobin 9.0L, Hematocrit 27.2L, Mean Corpuscular Volume 84, Mean Corpuscular Hemoglobin 27.7, Mean Corpuscular Hemoglobin Concent 33.0, Red Cell Distribution Width 14.8, Platelet Count 458H, Mean Platelet Volume 6.8, Neutrophils (%) (Auto) 72.2, Lymphocytes ( %) (Auto) 14.5L, Monocytes (%) (Auto) 9.7, Eosinophils (%) (Auto) 2.6, Basophils (%) (Auto) 1.1, Erythrocyte Sedimentation Rate 110H, Sodium Level 131L , Potassium Level 4.4, Chloride Level 98, Carbon Dioxide Level 22, Anion Gap 12 , Blood Urea Nitrogen 23H, Creatinine 1.2, Estimat Glomerular Filtration Rate 59.9, Glucose Level 121H, Calcium Level 9.4, Phosphorus Level 3.6, Magnesium Level 2.0, Total Bilirubin 0.3, Aspartate Amino Transf (AST/SGOT) 13L, Alanine Aminotransferase (ALT/SGPT) 14, Alkaline Phosphatase 114, C-Reactive Protein, Quantitative 12.4H, Total Protein 7.9, Albumin 2.6L, Globulin 5.3, Albumin/ Globulin Ratio 0.5L, Vancomycin Level Trough 15.0H Height (Feet): 5 Height (Inches): 10.00 Weight (Pounds): 160 General Appearance: lethargic EENT: normal ENT inspection Neck: normal alignment Cardiovascular: normal peripheral pulses, normal rate, regular rhythm Respiratory/Chest: chest wall non-tender, decreased breath sounds Abdomen: normal bowel sounds, non tender, soft Extremities: normal inspection Edema: no edema noted Arm (L), no edema noted Arm (R), no edema noted Leg (L), no edema noted Leg (R), no edema noted Pedal (L), no edema noted Pedal (R), no edema noted Generalized Neurologic: motor weakness Skin: normal pigmentation, warm/dry Gato Viveros DO Dec 10, 2018 14:20
[2018-12-10 16:00] VITALS: BP 111/75
--- NOTE | 2018-12-10 16:07 | Infectious Diseases Prog Note ---
Assessment/Plan Assessment/Plan Abx: IV Vancomycin 12/08- Cefepime 12/08- Levaquinx 1 12/08 Assessment: Leukocytosis; imrpoving- ?UTI -u/a wbc 5-10, nit n eg, leuk +3; ucx NTD -CXR: No acute process. 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 diff Dysphagia s/p G-tube Anemia. CVA/TIA w/ hemiplegia functional quadriplegia chronic encephalopathy CAD CHF Dm2 GIB s/p multiple EGDs in the past hx of severe esophagitis schizoaffective disease [facility] resident multiple admissions VRE colonization Plan: -Continue empiric IV Vancomycin and Cefepime #3 pending cultures -12/08 SP Levaquin x1 -11/06 SP Amikacin #6 -11/01 SP Meropenem #4 -10/29 SP IV Vanco #2, Cefepime #2 and Tigecycline #1 -10/28 SP LEavquin x1 -10/09 SP Ertapenem #5 - 10/04 SP Meropenem #2 -10/03/18 SP IV Vancomycin #2 and Cefepime #2 -08/09/18 SP Bactrim #7 -08/03 SP Vancomycin and Cefepime #3 -08/01/18 SP Ceftriaxone x1 -f.u cx (Bl, SP, urine) -Monitor CBC/CMP, temperatures -Peg/trach care -aspiration precautions -CXR am Thank you for this consultation. Will continue to follow along with you. Subjective Allergies: Coded Allergies: NO KNOWN DRUG ALLERGIES (Verified Allergy, Unknown, 09/11/16) Subjective afebrile in 24hrs wbc improving repeat Bcx p Objective Vital Signs Last 24 Hour Vital Signs Date Time Temp Pulse Resp B/P (MAP) Pulse Ox O2 Delivery O2 Flow Rate FiO2 12/10/18 15:00 78 16 30 12/10/18 13:08 79 16 30 12/10/18 12:00 35 12/10/18 12:00 Mechanical Ventilator 12/10/18 12:00 82 12/10/18 12:00 99.3 82 16 110/73 (85) 99 12/10/18 11:03 85 16 30 12/10/18 09:29 89 16 30 12/10/18 08:00 80 12/10/18 08:00 35 12/10/18 08:00 99.0 82 16 118/55 (76) 98 12/10/18 08:00 Mechanical Ventilator 12/10/18 06:56 81 16 30 12/10/18 04:40 83 16 30 12/10/18 04:00 35 12/10/18 04:00 Mechanical Ventilator 12/10/18 04:00 85 12/10/18 04:00 98.9 84 18 111/75 (87) 100 12/10/18 03:30 92 18 30 12/10/18 01:30 91 18 30 12/10/18 00:00 35 12/10/18 00:00 Mechanical Ventilator 12/10/18 00:00 97.3 90 22 160/60 (93) 97 12/10/18 00:00 86 12/09/18 23:30 90 17 30 12/09/18 21:27 92 17 30 12/09/18 21:00 98.2 80 22 148/76 (100) 100 12/09/18 21:00 35 12/09/18 21:00 Mechanical Ventilator 12/09/18 21:00 89 12/09/18 19:30 90 18 30 12/09/18 17:05 92 18 35 Height (Feet): 5 Height (Inches): 10.00 Weight (Pounds): 160 Objective Status: awake Condition: critical HEENT: atraumatic Neck: full ROM, trach Lungs: rales, rhonchi Heart: HR/BP stable, HR/BP unstable Abdomen: soft, non-tender Extremities: edema Decubiti: location Microbiology Date/Time Source Procedure Growth Status 12/08/18 13:55 Blood Blood Culture - Preliminary NO GROWTH AFTER 24 HOURS Resulted 12/08/18 13:40 Blood Blood Culture - Preliminary Staphylococcus Sp Coag Neg Resulted 12/09/18 03:45 Sputum Gram Stain - Final Resulted 12/09/18 03:45 Sputum Culture - Preliminary Gram Negative Bacillus 1 Resulted 12/08/18 15:15 Nasal Nares MRSA Culture - Final NO METHICILLIN RESISTANT STAPH AUREUS... Complete 12/09/18 16:47 Urine,Clean Catch Urine Culture - Preliminary NO GROWTH AFTER 24 HOURS Resulted 12/08/18 15:15 Rectum VRE Culture - Final Enterococcus Faecalis - Vre Complete 12/08/18 15:15 Rectum - Final NO CARBAPENEM-RESISTANT ENTEROBACTERI... Complete Laboratory Tests Test 12/10/18 03:50 White Blood Count 13.2 K/UL (4.8-10.8) H Red Blood Count 3.23 M/UL (4.70-6.10) L Hemoglobin 9.0 G/DL (14.2-18.0) L Hematocrit 27.2 % (42.0-52.0) L Mean Corpuscular Volume 84 FL (80-99) Mean Corpuscular Hemoglobin 27.7 PG (27.0-31.0) Mean Corpuscular Hemoglobin Concent 33.0 G/DL (32.0-36.0) Red Cell Distribution Width 14.8 % (11.6-14.8) Platelet Count 458 K/UL (150-450) H Mean Platelet Volume 6.8 FL (6.5-10.1) Neutrophils (%) (Auto) 72.2 % (45.0-75.0) Lymphocytes (%) (Auto) 14.5 % (20.0-45.0) L Monocytes (%) (Auto) 9.7 % (1.0-10.0) Eosinophils (%) (Auto) 2.6 % (0.0-3.0) Basophils (%) (Auto) 1.1 % (0.0-2.0) Erythrocyte Sedimentation Rate 110 MM/HR (0-20) H Sodium Level 131 MMOL/L (136-145) L Potassium Level 4.4 MMOL/L (3.5-5.1) Chloride Level 98 MMOL/L (98-107) Carbon Dioxide Level 22 MMOL/L (21-32) Anion Gap 12 mmol/L (5-15) Blood Urea Nitrogen 23 mg/dL (7-18) H Creatinine 1.2 MG/DL (0.55-1.30) Estimat Glomerular Filtration Rate 59.9 mL/min (>60) Glucose Level 121 MG/DL (74-106) H Calcium Level 9.4 MG/DL (8.5-10.1) Phosphorus Level 3.6 MG/DL (2.5-4.9) Magnesium Level 2.0 MG/DL (1.8-2.4) Total Bilirubin 0.3 MG/DL (0.2-1.0) Aspartate Amino Transf (AST/SGOT) 13 U/L (15-37) L Alanine Aminotransferase (ALT/SGPT) 14 U/L (12-78) Alkaline Phosphatase 114 U/L (46-116) C-Reactive Protein, Quantitative 12.4 mg/dL (0.00-0.90) H Total Protein 7.9 G/DL (6.4-8.2) Albumin 2.6 G/DL (3.4-5.0) L Globulin 5.3 g/dL Albumin/Globulin Ratio 0.5 (1.0-2.7) L Vancomycin Level Trough 15.0 ug/mL (5.0-12.0) H Current Medications Medications (Trade) Dose Ordered Sig/Wanda Route PRN Reason Start Time Stop Time Status Last Admin Dose Admin Acetaminophen (Tylenol) 650 mg Q4H PRN ORAL FEVER 12/08/18 16:15 01/07/19 16:14 Albuterol/ Ipratropium (Albuterol/ Ipratropium) 3 ml Q4H PRN HHN Shortness of Breath 12/08/18 16:00 12/13/18 15:59 Cefepime HCl 1 gm/ Dextrose 100 ml @ 100 mls/hr Q12HR IVPB 12/09/18 11:00 12/16/18 10:59 12/10/18 09:16 Dextrose (Dextrose 50%) 25 ml Q30M PRN IV Hypoglycemia 12/08/18 16:15 01/07/19 16:14 Dextrose (Dextrose 50%) 50 ml Q30M PRN IV hypoglycemia 12/08/18 16:15 01/07/19 16:14 Heparin Sodium (Porcine) (Heparin 5000 units/ml) 5,000 units EVERY 12 HOURS SUBQ 12/08/18 21:00 01/07/19 20:59 12/10/18 09:14 Levothyroxine Sodium (Synthroid) 75 mcg Q24H GT 12/09/18 06:30 01/08/19 06:29 12/10/18 06:20 Lorazepam (Ativan 2mg/ml 1ml) 2 mg Q2H PRN IV For Anxiety 12/08/18 16:00 12/15/18 15:59 Morphine Sulfate (Morphine Sulfate) 4 mg Q4H PRN IVP Severe Pain (Pain Scale 7-10) 12/08/18 16:00 12/15/18 15:59 Ondansetron HCl (Zofran) 4 mg Q6H PRN IVP Nausea & Vomiting 12/08/18 16:00 01/07/19 15:59 Pantoprazole (Protonix) 40 mg DAILY IV 12/09/18 09:00 01/08/19 08:59 12/10/18 09:15 Polyethylene Glycol (Miralax) 17 gm DAILYPRN PRN ORAL Constipation 12/08/18 16:00 01/07/19 15:59 Sucralfate (Carafate) 1 gm FOUR TIMES A DAY GT 12/08/18 18:00 01/07/19 17:59 12/10/18 13:47 Vancomycin HCl (Vanco rx to dose) 1 ea DAILY PRN MISC PER PHARMACY 12/08/18 16:30 01/07/19 16:29 Vancomycin HCl 500 mg/Dextrose 110 ml @ 110 mls/hr Q12H IVPB 12/08/18 18:00 12/13/18 17:59 12/10/18 06:20 Lisy Lai M.D. Dec 10, 2018 16:07
--- NOTE | 2018-12-10 18:00 | NUR ---
NURSE NOTES: IV insertion to LT Hand and LAC tried with no 22G angiocath but unsuccessful,pt is a hard stick.another RN tried but still unable to insert iv.
--- NOTE | 2018-12-10 19:00 | NUR ---
HAND-OFF: Report given to ODILIA Kyle removed with out trauma RN. Addendum: 12/10/18 at 1928 by KEY PATTERSON RN wrong documentation,intended for another pt.
--- NOTE | 2018-12-10 19:15 | NUR ---
HAND-OFF: Report given to Temi Mcarthur RN.Pt with no IV access,unable to insert a new site pt with no visible vein and pt very contracted. .
--- NOTE | 2018-12-10 19:22 | NUR ---
NURSE NOTES: BEDSIDE REPORT RECEIVED FROM ODILIA MACKEY. PT IS NONVERBAL, OPENS EYES SPONTANEOUSLY, AND RESPONDS TO TACTILE STIMULATION. REHABILITATION CLERK SHOWING NSR. VENTILATOR PORTEX 8, AC 16, TV 600, FIO2 35, PEEP 5; TOLERATING VENT SETTINGS WELL. JEVITY 1.2 @ 30, NO RESIDUAL. SKIN IS CLEAN, DRY, DRESSINGS INTACT. CONDOM CATH DRAINING YELLOW URINE. RFA 22G; ASYMPTOMATIC. LABS MD SHAKA AWARE OF SODIUM; NO NEW ORDERS. BED IS LOCKED IN LOWEST POSITION, SR X3, CALL AYALA W/ IN REACH, BED ALARM ON, SZ PRECAUTIONS CTND. WILL CONTINUE TO MONITOR AND FOLLOW W/ PLAN OF CARE.
[2018-12-10 20:00] VITALS: BP 128/72
--- NOTE | 2018-12-10 21:00 | NUR ---
NURSE NOTES: IV LINE INFILTRATED. WILL ATTEMPT AFTER MED PASS. HX OF HARD STICK AND PICC.
--- NOTE | 2018-12-10 21:30 | Cardiology Report ---
APPROVED REPORT EKG Measurement Heart [id number] Normal sinus rhythm Normal ECG
--- NOTE | 2018-12-10 22:00 | NUR ---
NURSE NOTES: UNSUCCESSFUL ATTEMPT OF IV. WILL ASK ANOTHER RN TO ATTEMPT.
--- NOTE | 2018-12-10 23:00 | NUR ---
NURSE NOTES: ODILIA DE LA TORRE ATTEMPTED IV LINE; UNSUCCESSFUL. WILL ASK ANOTHER NURSE TO ATTEMPT. WILL CONTINUE TO MONITOR.
[2018-12-11] VITALS: BP 120/77
--- NOTE | 2018-12-11 | NUR ---
NURSE NOTES: ODILIA RIVERA FROM ICU HAD UNSUCCESSFUL ATTEMPT. WILL ATTEMPT LATER AND ALERT MD. PT IS STABLE NO S/S OF DISTRESS NOTED.
[2018-12-11 04:00] VITALS: BP 123/75
--- NOTE | 2018-12-11 04:00 | NUR ---
NURSE NOTES: SPOKE W/ [facility] REGARDING SCANNED 2100 CEFEPIME DOSE. UNABLE TO UNDO. PAULA MENTIONED THAT SHE WILL PUT IN A PHARMACY NOTE TO [facility] ONCE PATIENT GETS A LINE. WAS TOLD TO [facility] FOLLOWING IV MEDS "NOT GIVEN" UNTIL LINE IS ESTABLISHED.
[2018-12-11 05:43] LABS: BASOPHILS % (AUTO) 1.1 % (0.0-2.0); EOSINOPHILS % (AUTO) 1.8 % (0.0-3.0); HEMATOCRIT 27.4 % (42.0-52.0); HEMOGLOBIN 8.8 G/DL (14.2-18.0); LYMPHOCYTES % (AUTO) 15.3 % (20.0-45.0); MEAN CORPUSCULAR VOLUME 85 FL (80-99); MONOCYTES % (AUTO) 8.6 % (1.0-10.0); NEUTROPHILS % (AUTO) 73.1 % (45.0-75.0); PLATELET COUNT 426 K/UL (150-450); RED BLOOD COUNT 3.24 M/UL (4.70-6.10); RED CELL DISTRIBUTION WIDTH 14.7 % (11.6-14.8); WHITE BLOOD COUNT 12.1 K/UL (4.8-10.8)
[2018-12-11] MEDS: Vancomycin 500mg/D5W 110ml IVPB SCH ×4 (05:47→18:15)
[2018-12-11 06:17] LABS: ALANINE AMINOTRANSFERASE 16 U/L (12-78); ALBUMIN 2.7 G/DL (3.4-5.0); ALBUMIN/GLOBULIN RATIO 0.5 (1.0-2.7); ALKALINE PHOSPHATASE 115 U/L (46-116); ANION GAP 12 mmol/L (5-15); ASPARTATE AMINO TRANSFERASE 15 U/L (15-37); BILIRUBIN,TOTAL 0.3 MG/DL (0.2-1.0); BLOOD UREA NITROGEN 25 mg/dL (7-18); CALCIUM 9.8 MG/DL (8.5-10.1); CARBON DIOXIDE 23 MMOL/L (21-32); CHLORIDE 99 MMOL/L (98-107); CREATININE 1.3 MG/DL (0.55-1.30); PHOSPHORUS 3.7 MG/DL (2.5-4.9); POTASSIUM 4.1 MMOL/L (3.5-5.1); SODIUM 133 MMOL/L (136-145)
--- NOTE | 2018-12-11 07:27 | NUR ---
HAND-OFF: Report given to ODILIA PATTERSON.
--- NOTE | 2018-12-11 07:30 | NUR ---
NURSE NOTES: Received patient from Temi Christensen RN. Patient in bed with no signs of discomfort. Bed at its lowest position and call light in reach. Will continue to monitor.
--- NOTE | 2018-12-11 07:32 | NUR ---
RESPIRATORY NOTE: Patient received mechanically ventilated on PB 840 with current ordered vent settings. Patient has trach size 8.0 Portex cuffed that is secured with a trach tie and guard. There were bilateral coarse breath sounds noted upon auscultation and small amount of clear thin secretions were suctioned without incident. There is an ambu bag available at the bedside and the vent is connected to a red outlet. Vent alarms are functional and audible. Will continue to monitor.
[2018-12-11 08:00] VITALS: BP 110/63
--- NOTE | 2018-12-11 08:30 | NUR ---
NURSE NOTES: Unable to give IVPB Maxipime and Protonix IV ,pt with no IV access,will try again to insert IV and call Dr Viveros for PICC line orders.
[2018-12-11] MEDS: Sucralfate 1gm tab GT SCH ×4 (08:36→20:54)
[2018-12-11] MEDS: Pantoprazole Inj IV SCH ×2 (08:36→08:46)
[2018-12-11] MEDS: Heparin 5000 units/ml inj SUBQ SCH ×2 (08:37→20:55)
--- NOTE | 2018-12-11 09:27 | Infectious Diseases Prog Note ---
Assessment/Plan Assessment/Plan Abx: IV Vancomycin 12/08- Cefepime 12/08- Levaquinx 1 12/08 Assessment: Leukocytosis; imrpoving- ?UTI -u/a wbc 5-10, nit n eg, leuk +3; ucx NTD -CXR: No acute process. 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 diff Dysphagia s/p G-tube Anemia. CVA/TIA w/ hemiplegia functional quadriplegia chronic encephalopathy CAD CHF Dm2 GIB s/p multiple EGDs in the past hx of severe esophagitis schizoaffective disease senior living resident multiple admissions VRE colonization Plan: -Continue empiric IV Vancomycin and Cefepime #4 pending cultures -12/08 SP Levaquin x1 -11/06 SP Amikacin #6 -11/01 SP Meropenem #4 -10/29 SP IV Vanco #2, Cefepime #2 and Tigecycline #1 -10/28 SP LEavquin x1 -10/09 SP Ertapenem #5 - 10/04 SP Meropenem #2 -10/03/18 SP IV Vancomycin #2 and Cefepime #2 -08/09/18 SP Bactrim #7 -08/03 SP Vancomycin and Cefepime #3 -08/01/18 SP Ceftriaxone x1 -f.u cx (Bl, SP, urine) -Monitor CBC/CMP, temperatures -Peg/trach care -aspiration precautions -CXR am Will continue to follow along with you. Subjective Allergies: Coded Allergies: NO KNOWN DRUG ALLERGIES (Verified Allergy, Unknown, 09/11/16) Subjective Afebrile Leukocytosis resolving Objective Vital Signs Last 24 Hour Vital Signs Date Time Temp Pulse Resp B/P (MAP) Pulse Ox O2 Delivery O2 Flow Rate FiO2 12/11/18 09:22 84 17 30 12/11/18 08:00 98.0 80 17 110/63 (79) 99 12/11/18 08:00 Mechanical Ventilator 12/11/18 07:29 75 17 30 12/11/18 04:59 79 17 30 12/11/18 04:00 74 12/11/18 04:00 98.2 86 16 123/75 (91) 98 12/11/18 04:00 Mechanical Ventilator 12/11/18 04:00 35 12/11/18 03:18 81 16 30 12/11/18 01:27 82 16 30 12/11/18 00:00 98.4 88 16 120/77 (91) 97 12/11/18 00:00 86 12/11/18 00:00 Mechanical Ventilator 12/11/18 00:00 35 12/10/18 23:30 85 17 30 12/10/18 20:50 88 16 30 12/10/18 20:25 84 17 30 12/10/18 20:00 98.0 98 16 128/72 (90) 96 12/10/18 20:00 Mechanical Ventilator 12/10/18 20:00 95 12/10/18 20:00 35 12/10/18 17:18 82 16 30 12/10/18 16:57 77 12/10/18 16:00 99.0 83 16 111/75 (87) 99 12/10/18 16:00 35 12/10/18 16:00 Mechanical Ventilator 12/10/18 15:00 78 16 30 12/10/18 13:08 79 16 30 12/10/18 12:00 35 12/10/18 12:00 Mechanical Ventilator 12/10/18 12:00 82 12/10/18 12:00 99.3 82 16 110/73 (85) 99 12/10/18 11:03 85 16 30 12/10/18 09:29 89 16 30 Height (Feet): 5 Height (Inches): 10.00 Weight (Pounds): 132 Objective Gen: NAD HEENT: NCAT, MMM, Trached on vent Lungs: Coarse B/L Heart: RRR, S1, S2 Abdomen: soft, non-tender Microbiology Date/Time Source Procedure Growth Status 12/09/18 16:00 Blood Blood Culture - Preliminary NO GROWTH AFTER 24 HOURS Resulted 12/09/18 15:45 Blood Blood Culture - Preliminary NO GROWTH AFTER 24 HOURS Resulted 12/08/18 13:55 Blood Blood Culture - Preliminary NO GROWTH AFTER 48 HOURS Resulted 12/08/18 13:40 Blood Blood Culture - Final Staphylococcus Sp Coag Neg Complete 12/09/18 03:45 Sputum Gram Stain - Final Resulted 12/09/18 03:45 Sputum Culture - Preliminary Gram Negative Bacillus 1 Gram Negative Bacillus 2 Gram Negative Bacillus 3 Resulted 12/08/18 15:15 Nasal Nares MRSA Culture - Final NO METHICILLIN RESISTANT STAPH AUREUS... Complete 12/09/18 16:47 Urine,Clean Catch Urine Culture - Preliminary Resulted 12/08/18 15:15 Rectum VRE Culture - Final Enterococcus Faecalis - Vre Complete 12/08/18 15:15 Rectum - Final NO CARBAPENEM-RESISTANT ENTEROBACTERI... Complete Laboratory Tests Test 12/11/18 03:35 White Blood Count 12.1 K/UL (4.8-10.8) H Red Blood Count 3.24 M/UL (4.70-6.10) L Hemoglobin 8.8 G/DL (14.2-18.0) L Hematocrit 27.4 % (42.0-52.0) L Mean Corpuscular Volume 85 FL (80-99) Mean Corpuscular Hemoglobin 27.2 PG (27.0-31.0) Mean Corpuscular Hemoglobin Concent 32.1 G/DL (32.0-36.0) Red Cell Distribution Width 14.7 % (11.6-14.8) Platelet Count 426 K/UL (150-450) Mean Platelet Volume 6.6 FL (6.5-10.1) Neutrophils (%) (Auto) 73.1 % (45.0-75.0) Lymphocytes (%) (Auto) 15.3 % (20.0-45.0) L Monocytes (%) (Auto) 8.6 % (1.0-10.0) Eosinophils (%) (Auto) 1.8 % (0.0-3.0) Basophils (%) (Auto) 1.1 % (0.0-2.0) Sodium Level 133 MMOL/L (136-145) L Potassium Level 4.1 MMOL/L (3.5-5.1) Chloride Level 99 MMOL/L (98-107) Carbon Dioxide Level 23 MMOL/L (21-32) Anion Gap 12 mmol/L (5-15) Blood Urea Nitrogen 25 mg/dL (7-18) H Creatinine 1.3 MG/DL (0.55-1.30) Estimat Glomerular Filtration Rate 54.6 mL/min (>60) Glucose Level 120 MG/DL (74-106) H Calcium Level 9.8 MG/DL (8.5-10.1) Phosphorus Level 3.7 MG/DL (2.5-4.9) Magnesium Level 2.2 MG/DL (1.8-2.4) Total Bilirubin 0.3 MG/DL (0.2-1.0) Aspartate Amino Transf (AST/SGOT) 15 U/L (15-37) Alanine Aminotransferase (ALT/SGPT) 16 U/L (12-78) Alkaline Phosphatase 115 U/L (46-116) Total Protein 8.1 G/DL (6.4-8.2) Albumin 2.7 G/DL (3.4-5.0) L Globulin 5.4 g/dL Albumin/Globulin Ratio 0.5 (1.0-2.7) L Current Medications Medications (Trade) Dose Ordered Sig/Wanda Route PRN Reason Start Time Stop Time Status Last Admin Dose Admin Acetaminophen (Tylenol) 650 mg Q4H PRN ORAL FEVER 12/08/18 16:15 01/07/19 16:14 Albuterol/ Ipratropium (Albuterol/ Ipratropium) 3 ml Q4H PRN HHN Shortness of Breath 12/08/18 16:00 12/13/18 15:59 Cefepime HCl 1 gm/ Dextrose 100 ml @ 100 mls/hr Q12HR IVPB 12/09/18 11:00 12/16/18 10:59 12/10/18 20:30 Dextrose (Dextrose 50%) 25 ml Q30M PRN IV Hypoglycemia 12/08/18 16:15 01/07/19 16:14 Dextrose (Dextrose 50%) 50 ml Q30M PRN IV hypoglycemia 12/08/18 16:15 01/07/19 16:14 Heparin Sodium (Porcine) (Heparin 5000 units/ml) 5,000 units EVERY 12 HOURS SUBQ 3/31/19 21:00 01/07/19 20:59 12/11/18 08:37 Levothyroxine Sodium (Synthroid) 75 mcg Q24H GT 12/09/18 06:30 01/08/19 06:29 12/11/18 05:46 Lorazepam (Ativan 2mg/ml 1ml) 2 mg Q2H PRN IV For Anxiety 12/08/18 16:00 12/15/18 15:59 Morphine Sulfate (Morphine Sulfate) 4 mg Q4H PRN IVP Severe Pain (Pain Scale 7-10) 12/08/18 16:00 12/15/18 15:59 Ondansetron HCl (Zofran) 4 mg Q6H PRN IVP Nausea & Vomiting 12/08/18 16:00 01/07/19 15:59 Pantoprazole (Protonix) 40 mg DAILY IV 12/09/18 09:00 01/08/19 08:59 12/10/18 09:15 Polyethylene Glycol (Miralax) 17 gm DAILYPRN PRN ORAL Constipation 12/08/18 16:00 01/07/19 15:59 Sucralfate (Carafate) 1 gm FOUR TIMES A DAY GT 12/11/18 09:00 01/07/19 17:59 12/11/18 08:36 Vancomycin HCl (Vanco rx to dose) 1 ea DAILY PRN MISC PER PHARMACY 12/08/18 16:30 01/07/19 16:29 Vancomycin HCl 500 mg/Dextrose 110 ml @ 110 mls/hr Q12H IVPB 12/08/18 18:00 12/13/18 17:59 12/10/18 18:21 John Fiore MD Dec 11, 2018 09:27
--- NOTE | 2018-12-11 10:27 | NUR ---
RADIOLOGY DEPT'., CHEST X-RAY DONE.-P.DYE
--- NOTE | 2018-12-11 10:39 | Diagnostic Imaging Report ---
Indication: Cough, dyspnea Technique: One view of the chest Comparison: 12/08/2018 Findings: Linear band of the right lung base is stable, also present previously, presumably an area of scarring. Lungs and pleural spaces are otherwise clear. Heart size is normal. Tracheostomy remains. Findings are unchanged Impression: No acute process
--- NOTE | 2018-12-11 11:48 | General Progress Note ---
Progress Note Progress Note Pt needs a PICC line to receive necessary antibiotics. there is no family member to sign the consent. Pt is not capable of singing either. Huma Keating MD Dec 11, 2018 11:48
[2018-12-11 12:00] VITALS: BP 144/70
--- NOTE | 2018-12-11 13:11 | Pulmonolgy Critical Care Note ---
Critical Care - Asmt/Plan Problems: (1) Respiratory failure, roibl-ic-mudgetx (2) Aspiration pneumonia (3) Severe sepsis (4) Anemia (5) Psychosis (6) Hypothyroidism (7) Severe protein-calorie malnutrition (8) Feeding by G-tube Respiratory: monitor respiratory rate, adjust FIO2 Cardiac: continue pressors, continue to monitor HR/BP Renal: F/U I&O, keep IV fluid, check electrolytes Infectious Disease: check cultures Gastrointestinal: continue feedings/current rate Endocrine: monitor blood sugar Hematologic: transfuse if hgb<8.5 Neurologic: PRN Ativan, keep patient comfortable Affect: PRN ativan Prophylaxis: Heparin Discussed with: nurses, consultants, pillowcase makergallery manager - Objective Last 24 Hour Vital Signs Date Time Temp Pulse Resp B/P (MAP) Pulse Ox O2 Delivery O2 Flow Rate FiO2 12/11/18 11:28 81 16 30 12/11/18 09:22 84 17 30 12/11/18 08:00 98.0 80 17 110/63 (79) 99 12/11/18 08:00 70 12/11/18 08:00 30 12/11/18 08:00 Mechanical Ventilator 12/11/18 07:29 75 17 30 12/11/18 04:59 79 17 30 12/11/18 04:00 74 12/11/18 04:00 98.2 86 16 123/75 (91) 98 12/11/18 04:00 Mechanical Ventilator 12/11/18 04:00 35 12/11/18 03:18 81 16 30 12/11/18 01:27 82 16 30 12/11/18 00:00 98.4 88 16 120/77 (91) 97 12/11/18 00:00 86 12/11/18 00:00 Mechanical Ventilator 12/11/18 00:00 35 12/10/18 23:30 85 17 30 12/10/18 20:50 88 16 30 12/10/18 20:25 84 17 30 12/10/18 20:00 98.0 98 16 128/72 (90) 96 12/10/18 20:00 Mechanical Ventilator 12/10/18 20:00 95 12/10/18 20:00 35 12/10/18 17:18 82 16 30 12/10/18 16:57 77 12/10/18 16:00 99.0 83 16 111/75 (87) 99 12/10/18 16:00 35 12/10/18 16:00 Mechanical Ventilator 12/10/18 15:00 78 16 30 Status: awake Condition: critical HEENT: atraumatic Lungs: clear Heart: HR/BP unstable, regular Abdomen: non-tender, feeding tube Extremities: edema Decubiti: stage Micro: Microbiology Date/Time Source Procedure Growth Status 12/09/18 16:00 Blood Blood Culture - Preliminary NO GROWTH AFTER 24 HOURS Resulted 12/09/18 15:45 Blood Blood Culture - Preliminary NO GROWTH AFTER 24 HOURS Resulted 12/08/18 13:55 Blood Blood Culture - Preliminary NO GROWTH AFTER 48 HOURS Resulted 12/08/18 13:40 Blood Blood Culture - Final Staphylococcus Sp Coag Neg Complete 12/09/18 03:45 Sputum Gram Stain - Final Resulted 12/09/18 03:45 Sputum Culture - Preliminary Gram Negative Bacillus 1 Gram Negative Bacillus 2 Gram Negative Bacillus 3 Resulted 12/08/18 15:15 Nasal Nares MRSA Culture - Final NO METHICILLIN RESISTANT STAPH AUREUS... Complete 12/09/18 16:47 Urine,Clean Catch Urine Culture - Preliminary Resulted 12/08/18 15:15 Rectum VRE Culture - Final Enterococcus Faecalis - Vre Complete 12/08/18 15:15 Rectum - Final NO CARBAPENEM-RESISTANT ENTEROBACTERI... Complete Critical Care - Subjective ROS Limited/Unobtainable: Yes Condition: critical, improving EKG Rhythm: Sinus Rhythm FI02: 30 Vent Support Breath Rate: 16 Vent Support Mode: AC Vent Tidal Volume: 600 Sputum Amount: Moderate PEEP: 5.0 PIP: 24 Tube Feeding Amount: 30 I&O: Intake and Output 12/10/18 12/11/18 19:00 07:00 Intake Total 640 ml 520 ml Output Total 550 ml 300 ml Balance 90 ml 220 ml Intake Free Water 100 ml 90 ml IV Total 100 ml Tube Feeding 360 ml 330 ml Other 180 ml Output Urine Total 550 ml 300 ml CXR: no change Labs: Laboratory Tests Test 12/11/18 03:35 White Blood Count 12.1 K/UL (4.8-10.8) H Red Blood Count 3.24 M/UL (4.70-6.10) L Hemoglobin 8.8 G/DL (14.2-18.0) L Hematocrit 27.4 % (42.0-52.0) L Mean Corpuscular Volume 85 FL (80-99) Mean Corpuscular Hemoglobin 27.2 PG (27.0-31.0) Mean Corpuscular Hemoglobin Concent 32.1 G/DL (32.0-36.0) Red Cell Distribution Width 14.7 % (11.6-14.8) Platelet Count 426 K/UL (150-450) Mean Platelet Volume 6.6 FL (6.5-10.1) Neutrophils (%) (Auto) 73.1 % (45.0-75.0) Lymphocytes (%) (Auto) 15.3 % (20.0-45.0) L Monocytes (%) (Auto) 8.6 % (1.0-10.0) Eosinophils (%) (Auto) 1.8 % (0.0-3.0) Basophils (%) (Auto) 1.1 % (0.0-2.0) Sodium Level 133 MMOL/L (136-145) L Potassium Level 4.1 MMOL/L (3.5-5.1) Chloride Level 99 MMOL/L (98-107) Carbon Dioxide Level 23 MMOL/L (21-32) Anion Gap 12 mmol/L (5-15) Blood Urea Nitrogen 25 mg/dL (7-18) H Creatinine 1.3 MG/DL (0.55-1.30) Estimat Glomerular Filtration Rate 54.6 mL/min (>60) Glucose Level 120 MG/DL (74-106) H Calcium Level 9.8 MG/DL (8.5-10.1) Phosphorus Level 3.7 MG/DL (2.5-4.9) Magnesium Level 2.2 MG/DL (1.8-2.4) Total Bilirubin 0.3 MG/DL (0.2-1.0) Aspartate Amino Transf (AST/SGOT) 15 U/L (15-37) Alanine Aminotransferase (ALT/SGPT) 16 U/L (12-78) Alkaline Phosphatase 115 U/L (46-116) Total Protein 8.1 G/DL (6.4-8.2) Albumin 2.7 G/DL (3.4-5.0) L Globulin 5.4 g/dL Albumin/Globulin Ratio 0.5 (1.0-2.7) L Huma Keating MD Dec 11, 2018 13:11
--- NOTE | 2018-12-11 14:19 | NUR ---
*-*INSURANCE *-* updated CLINIC[facility] BE[facility] So[facility] P- [phone] F- [phone]...REVIEW/CLINICAL
--- NOTE | 2018-12-11 14:34 | NUR ---
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 RESPIRATORY FAILURE ACUTE ON CHRONIC VS: BP144/70, P 75, T 98.4, RR 16, SpO2 100 on VENT AC 16, TV 600, PEEP 5.0, FiO2 30 WBC 12.1, RBC 3.24, Hgb 8.8, Hct 27.4, Na 133, BUN 25 CXR Findings: Linear band of the right lung base is stable, also present previously, presumably an area of scarring. IS:SUCRALFATE 1gm GT CEFEPIME 100ml IVPB PROTONIX 40mg IV SYNTHROID 75mcg GT HEPARIN SUBQ VANCOMYCIN 110mlM IVPB SDU STATUS
[2018-12-11] MEDS ORDERED: Heparin1,000 units/500ml Premix(Conc:2 units/ml) IV PRN (14:45)
[2018-12-11] MEDS ORDERED: Lidocaine 1% Plain 30 ml INJ PRN (14:45)
--- NOTE | 2018-12-11 15:30 | NUR ---
NURSE NOTES: PICC line inserted for IV access by . PICC line is intact and with no redness or swelling. Patient tolerated procedure well. No signs of infection or distress. Patient resting comfortably with bed at its lowest position 3 side rails up, and call light in reach. Will continue to monitor.
--- NOTE | 2018-12-11 15:42 | General Progress Note ---
Assessment/Plan Problem List: (1) Severe sepsis ICD Codes: A41.9 - Sepsis, unspecified organism; R65.20 - Severe sepsis without septic shock SNOMED: 71605703 (2) Severe protein-calorie malnutrition ICD Codes: E43 - Unspecified severe protein-calorie malnutrition SNOMED: 336727862 (3) Feeding by G-tube ICD Codes: Z93.1 - Gastrostomy status SNOMED: 968281923, 946489853 (4) Respiratory failure, [id number] ICD Codes: J96.20 - Respiratory failure, [id number] SNOMED: 55743613 (5) Anemia ICD Codes: D64.9 - Anemia, unspecified SNOMED: 461523111 (6) Aspiration pneumonia ICD Codes: J69.0 - Pneumonitis due to inhalation of food and vomit SNOMED: 847723860 (7) Acute renal failure ICD Codes: N17.9 - Acute kidney failure, unspecified SNOMED: 10348855 Status: unchanged Assessment/Plan vent abx cbc bmp am Subjective Constitutional: Reports: weakness Allergies: Coded Allergies: NO KNOWN DRUG ALLERGIES (Verified Allergy, Unknown, 09/11/16) All Systems: reviewed and negative except above Subjective trach vent altered Objective Last 24 Hour Vital Signs Date Time Temp Pulse Resp B/P (MAP) Pulse Ox O2 Delivery O2 Flow Rate FiO2 12/11/18 13:10 80 16 30 12/11/18 12:00 30 12/11/18 12:00 98.4 86 16 144/70 (94) 100 12/11/18 12:00 91 12/11/18 12:00 Mechanical Ventilator 12/11/18 11:28 81 16 30 12/11/18 09:22 84 17 30 12/11/18 08:00 98.0 80 17 110/63 (79) 99 12/11/18 08:00 70 12/11/18 08:00 30 12/11/18 08:00 Mechanical Ventilator 12/11/18 07:29 75 17 30 12/11/18 04:59 79 17 30 12/11/18 04:00 74 12/11/18 04:00 98.2 86 16 123/75 (91) 98 12/11/18 04:00 Mechanical Ventilator 12/11/18 04:00 35 12/11/18 03:18 81 16 30 12/11/18 01:27 82 16 30 12/11/18 00:00 98.4 88 16 120/77 (91) 97 12/11/18 00:00 86 12/11/18 00:00 Mechanical Ventilator 12/11/18 00:00 35 12/10/18 23:30 85 17 30 12/10/18 20:50 88 16 30 12/10/18 20:25 84 17 30 12/10/18 20:00 98.0 98 16 128/72 (90) 96 12/10/18 20:00 Mechanical Ventilator 12/10/18 20:00 95 12/10/18 20:00 35 12/10/18 17:18 82 16 30 12/10/18 16:57 77 12/10/18 16:00 99.0 83 16 111/75 (87) 99 12/10/18 16:00 35 12/10/18 16:00 Mechanical Ventilator Intake and Output 12/10/18 12/11/18 19:00 07:00 Intake Total 640 ml 520 ml Output Total 550 ml 300 ml Balance 90 ml 220 ml Intake Free Water 100 ml 90 ml IV Total 100 ml Tube Feeding 360 ml 330 ml Other 180 ml Output Urine Total 550 ml 300 ml Laboratory Tests 12/11/18 03:35: White Blood Count 12.1H, Red Blood Count 3.24L, Hemoglobin 8.8L, Hematocrit 27.4L, Mean Corpuscular Volume 85, Mean Corpuscular Hemoglobin 27.2, Mean Corpuscular Hemoglobin Concent 32.1, Red Cell Distribution Width 14.7, Platelet Count 426, Mean Platelet Volume 6.6, Neutrophils (%) (Auto) 73.1, Lymphocytes (% ) (Auto) 15.3L, Monocytes (%) (Auto) 8.6, Eosinophils (%) (Auto) 1.8, Basophils (%) (Auto) 1.1, Sodium Level 133L, Potassium Level 4.1, Chloride Level 99, Carbon Dioxide Level 23, Anion Gap 12, Blood Urea Nitrogen 25H, Creatinine 1.3, Estimat Glomerular Filtration Rate 54.6, Glucose Level 120H, Calcium Level 9.8, Phosphorus Level 3.7, Magnesium Level 2.2, Total Bilirubin 0.3, Aspartate Amino Transf (AST/SGOT) 15, Alanine Aminotransferase (ALT/SGPT) 16, Alkaline Phosphatase 115, Total Protein 8.1, Albumin 2.7L, Globulin 5.4, Albumin/ Globulin Ratio 0.5L Height (Feet): 5 Height (Inches): 10.00 Weight (Pounds): 132 General Appearance: lethargic EENT: normal ENT inspection Neck: normal alignment Cardiovascular: normal peripheral pulses, normal rate, regular rhythm Respiratory/Chest: chest wall non-tender, decreased breath sounds Abdomen: normal bowel sounds, non tender, soft Extremities: normal inspection Edema: no edema noted Arm (L), no edema noted Arm (R), no edema noted Leg (L), no edema noted Leg (R), no edema noted Pedal (L), no edema noted Pedal (R), no edema noted Generalized Neurologic: motor weakness Skin: normal pigmentation, warm/dry Gato Viveros DO Dec 11, 2018 15:42
[2018-12-11 16:00] VITALS: BP 128/83
--- NOTE | 2018-12-11 16:19 | Diagnostic Imaging Report ---
Indications: Needs long-term IV access Technique: Two-physician consent obtained. Procedure performed at bedside. Procedural timeout performed. Ultrasound confirms patent compressible right brachial vein. Total sterile technique, including sterile probe cover and sterile gel, sterile gloves, hand hygiene, hat, mask,, sterile gown, large sterile drape, and preparation with 2% chlorhexidine utilized. Local anesthesia with 1% lidocaine. Under real-time ultrasound guidance, puncture brachial vein using 21-gauge needle, passage 0.018 guidewire, exchange for 4 Bhutanese peel-away sheath. 4 Bhutanese Bard dual-lumen power PICC cut to 43 cm. It was inserted through the peel-away sheath. Peel-away sheath and guidewire removed. Catheter fixed to the skin. Both catheter ports aspirated and flushed. Patient tolerated procedure well, without immediate complication. Followup chest x-ray obtained, documents catheter tip position at the high right atrium Impression: Successful bedside placement of and right arm PICC under sonographic guidance, as described above.
--- NOTE | 2018-12-11 19:30 | NUR ---
HAND-OFF: Report given to Ruth Washington RN.
--- NOTE | 2018-12-11 19:35 | NUR ---
NURSE NOTES: Received patient from Jeannie Og RN. Will continue plan of care.
[2018-12-11 20:00] VITALS: BP 136/72
[2018-12-11] MEDS: Dyna-Hex 2% Top Sol 2oz TOPIC SCH (20:54)
--- NOTE | 2018-12-11 22:45 | NUR ---
NURSE NOTES: Received report from Ruth RN, pt. in bed obtunded, eyes open, no signs or symptoms of acute cardiac or respiratory distress noted, cardiac monitoring on, bed in lowest position and call light within easy reach, bed alarm on, side rails up x's3 and safety brakes engaged, pt. appears to be tolerating current vent settings well- AC 16, TV 600, Fio2 @35%, PEEP 5- NO DISTRESS NOTED, Jevity 1.2 running at 30cc/hr- no residual noted, Condom cath intact and draining to gravity, PRASHANTH Picc intact and patent- TKO, side rails padded for seizure precautions, safety measure continued, will continue with plan of care.
[2018-12-12] VITALS: BP 145/81
[2018-12-12 04:00] VITALS: BP 123/77
[2018-12-12] MEDS: Vancomycin 500mg/D5W 110ml IVPB SCH ×2 (05:29)
[2018-12-12 05:39] LABS: BASOPHILS % (AUTO) 0.7 % (0.0-2.0); EOSINOPHILS % (AUTO) 1.7 % (0.0-3.0); HEMATOCRIT 27.3 % (42.0-52.0); HEMOGLOBIN 8.8 G/DL (14.2-18.0); LYMPHOCYTES % (AUTO) 13.4 % (20.0-45.0); MEAN CORPUSCULAR VOLUME 83 FL (80-99); MONOCYTES % (AUTO) 8.7 % (1.0-10.0); NEUTROPHILS % (AUTO) 75.6 % (45.0-75.0); PLATELET COUNT 443 K/UL (150-450); RED BLOOD COUNT 3.28 M/UL (4.70-6.10); RED CELL DISTRIBUTION WIDTH 14.6 % (11.6-14.8); WHITE BLOOD COUNT 13.1 K/UL (4.8-10.8)
[2018-12-12 06:08] LABS: ANION GAP 11 mmol/L (5-15); BLOOD UREA NITROGEN 23 mg/dL (7-18); CALCIUM 9.2 MG/DL (8.5-10.1); CARBON DIOXIDE 24 MMOL/L (21-32); CHLORIDE 96 MMOL/L (98-107); CREATININE 1.2 MG/DL (0.55-1.30); POTASSIUM 3.7 MMOL/L (3.5-5.1); SODIUM 131 MMOL/L (136-145)
--- NOTE | 2018-12-12 07:22 | NUR ---
HAND-OFF: Report given to Lenka RN, pt. stable and no signs of distress noted.
--- NOTE | 2018-12-12 07:25 | NUR ---
NURSE NOTES: Report received from Quinn HARTLEY.Pt resting quietly in bed,asleep noted desaturating ,O2 sat 85%,oral secretions suctioned with large amount of frothy white phlegm coming from mouth,with trach tube to vent ,on current settings, tolerating well,GTF Jevity 1.2 at 30 ml/hr ,condom cath draining yellow urine,PRASHANTH PICC intact,skin warm and dry ,SR up x2 HOB elevated, O2 sat went up 95% after suctioning,will continue to monitor pt.
--- NOTE | 2018-12-12 07:55 | NUR ---
RESPIRATORY NOTE: received pt on current vent settings, trach dependent with size portex 8. trach is midline, patent with no redness around stoma or neck area. alarms are on and audible with vent plugged into the red outlet. ambu bag at bedside. will cont to monitor.
[2018-12-12 08:00] VITALS: BP 133/76
[2018-12-12] MEDS: Heparin 5000 units/ml inj SUBQ SCH ×2 (09:07→20:06)
[2018-12-12] MEDS: Pantoprazole Inj IV SCH (09:07)
[2018-12-12] MEDS: Sucralfate 1gm tab GT SCH ×4 (09:07→20:58)
--- NOTE | 2018-12-12 10:14 | NUR ---
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 CURRENT TF:Jevity 1.2 @ 30ml/hr x 22 hrs ENTERAL NUTRITION RECOMMENDATIONS: Osmolite 1.2 @ 60ml/hr x 22 hrs to provide 1320ml, 1980kcal, 83g prot, 1006ml free water * REC TF CHANGE TO OSMOLITE 1.5 TO BETTER MEET EST NEEDS * Start Osmolite 1.5 @20ml/hr for 6 hrs, advance as tolerated 10ml/hr q4-6 hrs to goal * HOLD TF 1h before and 1 after synthroid administration. * Flush per MD/ HOB over 30 degrees ADDITIONAL RECOMMENDATIONS: * Calibrated bedscale weight for accurate CBW, weekly wt monitoring * Monitor need for accucheck w/ SSI- h/o DM + hyperglycemia * Monitor lytes w/ TF, replete as needed * Wound care: add JOYCELYN UNFLAVORED BI via GT + Vit C 250mg daily
--- NOTE | 2018-12-12 10:15 | Infectious Diseases Prog Note ---
Assessment/Plan Assessment/Plan Abx: IV Vancomycin 12/08- Cefepime 12/08- Levaquinx 1 12/08 Assessment: Leukocytosis; imrpoving- ?UTI -u/a wbc 5-10, nit n eg, leuk +3; ucx NTD -CXR: No acute process. Right basilar atelectasis -Sp cx 12/09/18 E.coli (ESBL), P.a. 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 diff Dysphagia s/p G-tube Anemia. CVA/TIA w/ hemiplegia functional quadriplegia chronic encephalopathy CAD CHF Dm2 GIB s/p multiple EGDs in the past hx of severe esophagitis schizoaffective disease care home resident multiple admissions VRE colonization Plan: - Start Zosyn for sputum organisms Additional P.a. Sensi pending - 12/12 S/P Vancomycin and Cefepime #5 -12/08 SP Levaquin x1 -11/06 SP Amikacin #6 -11/01 SP Meropenem #4 -10/29 SP IV Vanco #2, Cefepime #2 and Tigecycline #1 -10/28 SP LEavquin x1 -10/09 SP Ertapenem #5 - 10/04 SP Meropenem #2 -10/03/18 SP IV Vancomycin #2 and Cefepime #2 -08/09/18 SP Bactrim #7 -08/03 SP Vancomycin and Cefepime #3 -08/01/18 SP Ceftriaxone x1 -f.u cx (Bl, SP, urine) -Monitor CBC/CMP, temperatures -Peg/trach care -aspiration precautions -CXR am Will continue to follow along with you. Subjective Allergies: Coded Allergies: NO KNOWN DRUG ALLERGIES (Verified Allergy, Unknown, 09/11/16) Subjective Afebrile Mild Leukocytosis continues Objective Vital Signs Last 24 Hour Vital Signs Date Time Temp Pulse Resp B/P (MAP) Pulse Ox O2 Delivery O2 Flow Rate FiO2 12/12/18 09:15 83 16 30 12/12/18 08:00 30 12/12/18 08:00 82 12/12/18 08:00 98.8 85 20 133/76 (95) 100 12/12/18 08:00 Mechanical Ventilator 12/12/18 07:51 81 19 30 12/12/18 05:15 84 16 30 12/12/18 04:00 98.6 82 16 123/77 (92) 95 12/12/18 04:00 Mechanical Ventilator 12/12/18 04:00 30 12/12/18 03:30 87 15 30 12/12/18 03:27 89 12/12/18 01:40 94 19 30 12/12/18 00:00 30 12/12/18 00:00 97.7 82 16 145/81 (102) 97 12/12/18 00:00 Mechanical Ventilator 12/11/18 23:25 82 12/11/18 23:00 83 16 30 12/11/18 21:13 77 16 30 12/11/18 20:00 30 12/11/18 20:00 Mechanical Ventilator 12/11/18 20:00 97.6 84 20 136/72 (93) 98 12/11/18 19:30 83 19 30 12/11/18 19:01 82 12/11/18 17:29 87 17 30 12/11/18 16:00 Mechanical Ventilator 12/11/18 16:00 30 12/11/18 16:00 98.4 8 17 128/83 (98) 100 12/11/18 15:27 81 16 30 12/11/18 15:24 87 12/11/18 13:10 80 16 30 12/11/18 12:00 30 12/11/18 12:00 98.4 86 16 144/70 (94) 100 12/11/18 12:00 91 12/11/18 12:00 Mechanical Ventilator 12/11/18 11:28 81 16 30 Height (Feet): 5 Height (Inches): 10.00 Weight (Pounds): 132 Objective Gen: NAD, Satting well HEENT: NCAT, MMM, Trached on vent Lungs: Coarse B/L Heart: RRR, S1, S2 Abdomen: soft, non-tender Microbiology Date/Time Source Procedure Growth Status 12/09/18 16:00 Blood Blood Culture - Preliminary NO GROWTH AFTER 48 HOURS Resulted 12/09/18 15:45 Blood Blood Culture - Preliminary NO GROWTH AFTER 48 HOURS Resulted 12/09/18 16:47 Urine,Clean Catch Urine Culture - Preliminary YEAST Resulted Laboratory Tests Test 12/12/18 04:00 White Blood Count 13.1 K/UL (4.8-10.8) H Red Blood Count 3.28 M/UL (4.70-6.10) L Hemoglobin 8.8 G/DL (14.2-18.0) L Hematocrit 27.3 % (42.0-52.0) L Mean Corpuscular Volume 83 FL (80-99) Mean Corpuscular Hemoglobin 26.9 PG (27.0-31.0) L Mean Corpuscular Hemoglobin Concent 32.3 G/DL (32.0-36.0) Red Cell Distribution Width 14.6 % (11.6-14.8) Platelet Count 443 K/UL (150-450) Mean Platelet Volume 6.6 FL (6.5-10.1) Neutrophils (%) (Auto) 75.6 % (45.0-75.0) H Lymphocytes (%) (Auto) 13.4 % (20.0-45.0) L Monocytes (%) (Auto) 8.7 % (1.0-10.0) Eosinophils (%) (Auto) 1.7 % (0.0-3.0) Basophils (%) (Auto) 0.7 % (0.0-2.0) Sodium Level 131 MMOL/L (136-145) L Potassium Level 3.7 MMOL/L (3.5-5.1) Chloride Level 96 MMOL/L (98-107) L Carbon Dioxide Level 24 MMOL/L (21-32) Anion Gap 11 mmol/L (5-15) Blood Urea Nitrogen 23 mg/dL (7-18) H Creatinine 1.2 MG/DL (0.55-1.30) Estimat Glomerular Filtration Rate 59.9 mL/min (>60) Glucose Level 123 MG/DL (74-106) H Calcium Level 9.2 MG/DL (8.5-10.1) Current Medications Medications (Trade) Dose Ordered Sig/Wanda Route PRN Reason Start Time Stop Time Status Last Admin Dose Admin Acetaminophen (Tylenol) 650 mg Q4H PRN ORAL FEVER 12/08/18 16:15 01/07/19 16:14 Albuterol/ Ipratropium (Albuterol/ Ipratropium) 3 ml Q4H PRN HHN Shortness of Breath 12/08/18 16:00 12/13/18 15:59 Cefepime HCl 1 gm/ Dextrose 100 ml @ 100 mls/hr Q12H IVPB 12/11/18 17:00 12/18/18 16:59 12/12/18 05:27 Chlorhexidine Gluconate (Jamsin-Hex 2%) 1 applic DAILY@2000 TOPIC 12/11/18 20:00 01/10/19 19:59 12/11/18 20:54 Dextrose (Dextrose 50%) 25 ml Q30M PRN IV Hypoglycemia 12/08/18 16:15 01/07/19 16:14 Dextrose (Dextrose 50%) 50 ml Q30M PRN IV hypoglycemia 12/08/18 16:15 01/07/19 16:14 Heparin Sodium (Porcine) (Heparin 5000 units/ml) 5,000 units EVERY 12 HOURS SUBQ 12/08/18 21:00 01/07/19 20:59 12/12/18 09:07 Levothyroxine Sodium (Synthroid) 75 mcg Q24H GT 12/09/18 06:30 01/08/19 06:29 12/12/18 06:28 Lorazepam (Ativan 2mg/ml 1ml) 2 mg Q2H PRN IV For Anxiety 12/08/18 16:00 12/15/18 15:59 Morphine Sulfate (Morphine Sulfate) 4 mg Q4H PRN IVP Severe Pain (Pain Scale 7-10) 12/08/18 16:00 12/15/18 15:59 Ondansetron HCl (Zofran) 4 mg Q6H PRN IVP Nausea & Vomiting 12/08/18 16:00 01/07/19 15:59 Pantoprazole (Protonix) 40 mg DAILY IV 12/09/18 09:00 01/08/19 08:59 12/12/18 09:07 Polyethylene Glycol (Miralax) 17 gm DAILYPRN PRN ORAL Constipation 12/08/18 16:00 01/07/19 15:59 Sucralfate (Carafate) 1 gm FOUR TIMES A DAY GT 12/11/18 09:00 01/07/19 17:59 12/12/18 09:07 Vancomycin HCl (Vanco rx to dose) 1 ea DAILY PRN MISC PER PHARMACY 12/08/18 16:30 01/07/19 16:29 Vancomycin HCl 500 mg/Dextrose 110 ml @ 110 mls/hr Q12H IVPB 12/08/18 18:00 12/13/18 17:59 12/12/18 05:29 John Fiore MD Dec 12, 2018 10:15
--- NOTE | 2018-12-12 11:35 | NUR ---
NURSE NOTES: Oral care, and tracheal suctioning done,PRN,turned and repositioned ,kept dry and clean.
[2018-12-12 12:00] VITALS: BP 126/75
--- NOTE | 2018-12-12 13:10 | General Progress Note ---
Assessment/Plan Problem List: (1) Severe sepsis ICD Codes: A41.9 - Sepsis, unspecified organism; R65.20 - Severe sepsis without septic shock SNOMED: 67717716 (2) Severe protein-calorie malnutrition ICD Codes: E43 - Unspecified severe protein-calorie malnutrition SNOMED: 201646995 (3) Feeding by G-tube ICD Codes: Z93.1 - Gastrostomy status SNOMED: 890027670, 844802658 (4) Respiratory failure, [id number] ICD Codes: J96.20 - Respiratory failure, [id number]-[id number] SNOMED: 52814175 (5) Anemia ICD Codes: D64.9 - Anemia, unspecified SNOMED: 596179173 (6) Aspiration pneumonia ICD Codes: J69.0 - Pneumonitis due to inhalation of food and vomit SNOMED: 708741288 (7) Acute renal failure ICD Codes: N17.9 - Acute kidney failure, unspecified SNOMED: 49524387 Status: unchanged Assessment/Plan vent abx cbc bmp am Subjective Constitutional: Reports: weakness Allergies: Coded Allergies: NO KNOWN DRUG ALLERGIES (Verified Allergy, Unknown, 09/11/16) All Systems: reviewed and negative except above Subjective trach vent altered Objective Last 24 Hour Vital Signs Date Time Temp Pulse Resp B/P (MAP) Pulse Ox O2 Delivery O2 Flow Rate FiO2 12/12/18 12:00 30 12/12/18 12:00 98.9 86 16 126/75 (92) 100 12/12/18 12:00 Mechanical Ventilator 12/12/18 12:00 82 12/12/18 11:22 81 16 30 12/12/18 09:15 83 16 30 12/12/18 08:00 30 12/12/18 08:00 82 12/12/18 08:00 98.8 85 20 133/76 (95) 100 12/12/18 08:00 Mechanical Ventilator 12/12/18 07:51 81 19 30 12/12/18 05:15 84 16 30 12/12/18 04:00 98.6 82 16 123/77 (92) 95 12/12/18 04:00 Mechanical Ventilator 12/12/18 04:00 30 12/12/18 03:30 87 15 30 12/12/18 03:27 89 12/12/18 01:40 94 19 30 12/12/18 00:00 30 12/12/18 00:00 97.7 82 16 145/81 (102) 97 12/12/18 00:00 Mechanical Ventilator 12/11/18 23:25 82 12/11/18 23:00 83 16 30 12/11/18 21:13 77 16 30 12/11/18 20:00 30 12/11/18 20:00 Mechanical Ventilator 12/11/18 20:00 97.6 84 20 136/72 (93) 98 12/11/18 19:30 83 19 30 12/11/18 19:01 82 12/11/18 17:29 87 17 30 12/11/18 16:00 Mechanical Ventilator 12/11/18 16:00 30 12/11/18 16:00 98.4 8 17 128/83 (98) 100 12/11/18 15:27 81 16 30 12/11/18 15:24 87 Intake and Output 12/11/18 12/12/18 19:00 07:00 Intake Total 270 ml 475 ml Output Total 400 ml Balance 270 ml 75 ml Intake Free Water 100 ml IV Total 210 ml Tube Feeding 270 ml 165 ml Output Urine Total 400 ml # Bowel Movements 1 Laboratory Tests 12/12/18 04:00: White Blood Count 13.1H, Red Blood Count 3.28L, Hemoglobin 8.8L, Hematocrit 27.3L, Mean Corpuscular Volume 83, Mean Corpuscular Hemoglobin 26.9L, Mean Corpuscular Hemoglobin Concent 32.3, Red Cell Distribution Width 14.6, Platelet Count 443, Mean Platelet Volume 6.6, Neutrophils (%) (Auto) 75.6H, Lymphocytes ( %) (Auto) 13.4L, Monocytes (%) (Auto) 8.7, Eosinophils (%) (Auto) 1.7, Basophils (%) (Auto) 0.7, Sodium Level 131L, Potassium Level 3.7, Chloride Level 96L, Carbon Dioxide Level 24, Anion Gap 11, Blood Urea Nitrogen 23H, Creatinine 1.2, Estimat Glomerular Filtration Rate 59.9, Glucose Level 123H, Calcium Level 9.2 Height (Feet): 5 Height (Inches): 10.00 Weight (Pounds): 132 General Appearance: lethargic EENT: normal ENT inspection Neck: normal alignment Cardiovascular: normal peripheral pulses, normal rate, regular rhythm Respiratory/Chest: chest wall non-tender, lungs clear, normal breath sounds Abdomen: normal bowel sounds, non tender, soft Extremities: normal inspection Edema: no edema noted Arm (L), no edema noted Arm (R), no edema noted Leg (L), no edema noted Leg (R), no edema noted Pedal (L), no edema noted Pedal (R), no edema noted Generalized Neurologic: motor weakness Skin: normal pigmentation, warm/dry Gato Viveros DO Dec 12, 2018 13:10
[2018-12-12] MEDS: Piperacillin/Tazobactam 3.375 GM in D5W 110 ML IV SCH ×2 (13:17→20:58)
--- NOTE | 2018-12-12 13:27 | NUR ---
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 RESPIRATORY FAILURE ACUTE ON CHRONIC VS: BP133/76, P 85, T 98.9, RR 16, SpO2 100 on VENT AC 16, TV 600, PEEP 5.0, FiO2 30 WBC 13.1, RBC 3.28, Hgb 8.8, Hct 27.3, Na 131, BUN 23 IS: PIPERACILLIN/TAZOBACTAM/D5 100ml IV SUCRALFATE 1gm GT CEFEPIME 100ml IVPB PROTONIX 40mg IV SYNTHROID 75mcg GT HEPARIN SUBQ VANCOMYCIN 110mlM IVPB SDU STATUS
[2018-12-12 16:00] VITALS: BP 149/76
--- NOTE | 2018-12-12 16:01 | NUR ---
*-*INSURANCE *-* updated [facility] JO[facility] So[facility] P- [phone] F- [phone]...REVIEW/CLINICAL
--- NOTE | 2018-12-12 19:15 | NUR ---
NURSE NOTES: Received report from Lenka RN, pt. in bed obtunded, eyes open, non-verbal, no signs or symptoms of acute cardiac or respiratory distress noted, cardiac monitoring on, bed in lowest position and call light within easy reach, bed alarm on, side rails up x's3 and safety brakes engaged, pt. appears to be tolerating current vent settings well- AC 16, TV 600, Fio2 @35%, PEEP 5- NO DISTRESS NOTEDa t time of assessment, all needs attended to, Jevity 1.2 running at 30cc/hr- no residual noted- via G-tube, Condom cath intact and draining to gravity, PRASHANTH PICC intact and patent- TKO, side rails padded for seizure precautions, safety measure continued, will continue with plan of care.
--- NOTE | 2018-12-12 19:31 | NUR ---
HAND-OFF: Report given to Eun Montalvo RN..
--- NOTE | 2018-12-12 19:45 | NUR ---
RESPIRATORY NOTE: RECEIVED PT ON CURRENT VENT SETTINGS: AC 16 600 FIO2 30% +5. PT CHULA CURRENT VENT SETTINGS WELL. TRACH SECURE AND PATENT. NO RESP DISTRESS NOTED. ALARMS ARE ON, AUDIBLE, AND FUNCTIONING. SX SMALL THICK WHITE/YELLOW SECRETIONS. VENT PLUGGED INTO RED OUTLET. SPARE TRACH AND AMBU BAG AT BEDSIDE. WILL CONTINUE MONITORING PT.
[2018-12-12 20:00] VITALS: BP 102/77
[2018-12-12] MEDS: Dyna-Hex 2% Top Sol 2oz TOPIC SCH (20:05)
--- NOTE | 2018-12-12 20:15 | NUR ---
NURSE NOTES: cooling measures unsuccessful from prior shift- pts still has temp- will administer Tylenol and continue to monitor pt.
[2018-12-13] VITALS: BP 142/74
[2018-12-13 04:00] VITALS: BP 125/62
--- NOTE | 2018-12-13 04:45 | NUR ---
NURSE NOTES: cooling measures applied for temp of 99.5 axillary - will continue with cooling measures and continue to monitor pts temperature and with plan of care.
[2018-12-13 05:35] LABS: BASOPHILS % (AUTO) 0.6 % (0.0-2.0); EOSINOPHILS % (AUTO) 1.7 % (0.0-3.0); HEMATOCRIT 27.2 % (42.0-52.0); HEMOGLOBIN 8.8 G/DL (14.2-18.0); LYMPHOCYTES % (AUTO) 8.2 % (20.0-45.0); MEAN CORPUSCULAR VOLUME 83 FL (80-99); MONOCYTES % (AUTO) 8.5 % (1.0-10.0); NEUTROPHILS % (AUTO) 81.1 % (45.0-75.0); PLATELET COUNT 425 K/UL (150-450); RED BLOOD COUNT 3.26 M/UL (4.70-6.10); RED CELL DISTRIBUTION WIDTH 14.5 % (11.6-14.8); WHITE BLOOD COUNT 15.3 K/UL (4.8-10.8)
--- NOTE | 2018-12-13 05:56 | NUR ---
NURSE NOTES: cooling measures unsuccessful will administer Tylenol and continue to monitor pts temp and with plan of care.
[2018-12-13] MEDS: Piperacillin/Tazobactam 3.375 GM in D5W 110 ML IV SCH ×3 (05:58→21:01)
[2018-12-13 07:05] LABS: ANION GAP 15 mmol/L (5-15); BLOOD UREA NITROGEN 22 mg/dL (7-18); CALCIUM 9.5 MG/DL (8.5-10.1); CARBON DIOXIDE 19 MMOL/L (21-32); CHLORIDE 97 MMOL/L (98-107); CREATININE 1.4 MG/DL (0.55-1.30); POTASSIUM 3.8 MMOL/L (3.5-5.1); SODIUM 131 MMOL/L (136-145)
--- NOTE | 2018-12-13 07:12 | NUR ---
HAND-OFF: Report given to Lisa RN,pt. remains stable and no signs of distress noted.
--- NOTE | 2018-12-13 07:13 | NUR ---
NURSE NOTES: Received report from Eun/ ODILIA. Pt is Awake, will continue to monitor.
--- NOTE | 2018-12-13 07:14 | NUR ---
NURSE NOTES: Received report from Eun/ RN. Pt is Awake, Obtunded, 4 extremities were very contracted. Vet setting AC 16, TV 600, Fio2 35%, Peep 5, Portex 8#. G-tube with Jevity at 30 ml /hr. Condom cath, skin intact, IV PICC at right upper arm, Bed at lowest position, call light with each.
--- NOTE | 2018-12-13 07:30 | Infectious Diseases Prog Note ---
Assessment/Plan Assessment/Plan Abx: IV Vancomycin 12/08- Cefepime 12/08- Levaquinx 1 12/08 Assessment: Leukocytosis; imrpoving- ?UTI -u/a wbc 5-10, nit n eg, leuk +3; ucx NTD -CXR: No acute process. Right basilar atelectasis -Sp cx 12/09/18 E.coli (ESBL), P.a. 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 diff Dysphagia s/p G-tube Anemia. CVA/TIA w/ hemiplegia functional quadriplegia chronic encephalopathy CAD CHF Dm2 GIB s/p multiple EGDs in the past hx of severe esophagitis schizoaffective disease long term resident multiple admissions VRE colonization Plan: - Continue Zosyn for sputum organisms Additional P.a. Sensi pending. Im hesitant to start Amikacin given increased cr but if leukocytosis continues to increase it may be required. - 12/12 S/P Vancomycin and Cefepime #5 -12/08 SP Levaquin x1 -11/06 SP Amikacin #6 -11/01 SP Meropenem #4 -10/29 SP IV Vanco #2, Cefepime #2 and Tigecycline #1 -10/28 SP LEavquin x1 -10/09 SP Ertapenem #5 - 10/04 SP Meropenem #2 -10/03/18 SP IV Vancomycin #2 and Cefepime #2 -08/09/18 SP Bactrim #7 -08/03 SP Vancomycin and Cefepime #3 -08/01/18 SP Ceftriaxone x1 -f.u cx (Bl, SP, urine) -Monitor CBC/CMP, temperatures -Peg/trach care -aspiration precautions -CXR am Will continue to follow along with you. Subjective Allergies: Coded Allergies: NO KNOWN DRUG ALLERGIES (Verified Allergy, Unknown, 09/11/16) Subjective Afebrile Mild Leukocytosis continues Called lab and colistin sensitivities are pending for the P.a. Objective Vital Signs Last 24 Hour Vital Signs Date Time Temp Pulse Resp B/P (MAP) Pulse Ox O2 Delivery O2 Flow Rate FiO2 12/13/18 06:29 98.4 12/13/18 06:29 98.4 12/13/18 05:59 99.7 12/13/18 05:00 93 17 30 12/13/18 04:00 96 12/13/18 04:00 Mechanical Ventilator 12/13/18 04:00 99.5 92 20 125/62 (83) 99 12/13/18 04:00 30 12/13/18 03:00 93 19 30 12/13/18 01:50 93 19 30 12/13/18 00:00 Mechanical Ventilator 12/13/18 00:00 98.8 94 16 142/74 (96) 98 12/13/18 00:00 30 12/13/18 00:00 96 12/12/18 22:45 102 20 30 12/12/18 20:53 110 20 30 12/12/18 20:49 98.5 12/12/18 20:00 100.0 95 21 102/77 (85) 100 12/12/18 20:00 30 12/12/18 20:00 Mechanical Ventilator 12/12/18 20:00 99 12/12/18 19:45 105 16 30 12/12/18 16:55 86 16 30 12/12/18 16:00 100.1 90 16 149/76 (100) 100 12/12/18 16:00 85 12/12/18 16:00 30 12/12/18 16:00 Mechanical Ventilator 12/12/18 14:40 81 16 30 12/12/18 13:45 85 16 30 12/12/18 12:00 30 12/12/18 12:00 98.9 86 16 126/75 (92) 100 12/12/18 12:00 Mechanical Ventilator 12/12/18 12:00 82 12/12/18 11:22 81 16 30 12/12/18 09:15 83 16 30 12/12/18 08:00 30 12/12/18 08:00 82 12/12/18 08:00 98.8 85 20 133/76 (95) 100 12/12/18 08:00 Mechanical Ventilator 12/12/18 07:51 81 19 30 Height (Feet): 5 Height (Inches): 10.00 Weight (Pounds): 132 Objective Gen: NAD, Satting well on vent HEENT: NCAT, MMM, Trached on vent Lungs: Coarse B/L Heart: RRR, S1, S2 Abdomen: soft, non-tender Laboratory Tests Test 12/13/18 04:00 White Blood Count 15.3 K/UL (4.8-10.8) H Red Blood Count 3.26 M/UL (4.70-6.10) L Hemoglobin 8.8 G/DL (14.2-18.0) L Hematocrit 27.2 % (42.0-52.0) L Mean Corpuscular Volume 83 FL (80-99) Mean Corpuscular Hemoglobin 27.2 PG (27.0-31.0) Mean Corpuscular Hemoglobin Concent 32.6 G/DL (32.0-36.0) Red Cell Distribution Width 14.5 % (11.6-14.8) Platelet Count 425 K/UL (150-450) Mean Platelet Volume 7.0 FL (6.5-10.1) Neutrophils (%) (Auto) 81.1 % (45.0-75.0) H Lymphocytes (%) (Auto) 8.2 % (20.0-45.0) L Monocytes (%) (Auto) 8.5 % (1.0-10.0) Eosinophils (%) (Auto) 1.7 % (0.0-3.0) Basophils (%) (Auto) 0.6 % (0.0-2.0) Sodium Level 131 MMOL/L (136-145) L Potassium Level 3.8 MMOL/L (3.5-5.1) Chloride Level 97 MMOL/L (98-107) L Carbon Dioxide Level 19 MMOL/L (21-32) L Anion Gap 15 mmol/L (5-15) Blood Urea Nitrogen 22 mg/dL (7-18) H Creatinine 1.4 MG/DL (0.55-1.30) H Estimat Glomerular Filtration Rate 50.1 mL/min (>60) Glucose Level 121 MG/DL (74-106) H Calcium Level 9.5 MG/DL (8.5-10.1) Current Medications Medications (Trade) Dose Ordered Sig/Wanda Route PRN Reason Start Time Stop Time Status Last Admin Dose Admin Acetaminophen (Tylenol) 650 mg Q4H PRN ORAL FEVER 12/08/18 16:15 01/07/19 16:14 12/13/18 05:59 Albuterol/ Ipratropium (Albuterol/ Ipratropium) 3 ml Q4H PRN HHN Shortness of Breath 12/08/18 16:00 12/13/18 15:59 Chlorhexidine Gluconate (Jasmin-Hex 2%) 1 applic DAILY@1999 TOPIC 12/11/18 20:00 01/10/19 19:59 12/12/18 20:05 Dextrose (Dextrose 50%) 25 ml Q30M PRN IV Hypoglycemia 12/08/18 16:15 01/07/19 16:14 Dextrose (Dextrose 50%) 50 ml Q30M PRN IV hypoglycemia 12/08/18 16:15 01/07/19 16:14 Heparin Sodium (Porcine) (Heparin 5000 units/ml) 5,000 units EVERY 12 HOURS SUBQ 12/08/18 21:00 01/07/19 20:59 12/12/18 20:06 Levothyroxine Sodium (Synthroid) 75 mcg Q24H GT 12/09/18 06:30 01/08/19 06:29 12/13/18 05:59 Lorazepam (Ativan 2mg/ml 1ml) 2 mg Q2H PRN IV For Anxiety 12/08/18 16:00 12/15/18 15:59 Morphine Sulfate (Morphine Sulfate) 4 mg Q4H PRN IVP Severe Pain (Pain Scale 7-10) 12/08/18 16:00 12/15/18 15:59 Ondansetron HCl (Zofran) 4 mg Q6H PRN IVP Nausea & Vomiting 12/08/18 16:00 01/07/19 15:59 Pantoprazole (Protonix) 40 mg DAILY IV 12/09/18 09:00 01/08/19 08:59 12/12/18 09:07 Piperacillin Sod/ Tazobactam Sod 3.375 gm/Dextrose 110 ml @ 27.5 mls/hr EVERY 8 HOURS IV 12/12/18 14:00 12/17/18 13:59 12/13/18 05:58 Polyethylene Glycol (Miralax) 17 gm DAILYPRN PRN ORAL Constipation 12/08/18 16:00 01/07/19 15:59 Sucralfate (Carafate) 1 gm FOUR TIMES A DAY GT 12/11/18 09:00 01/07/19 17:59 12/12/18 20:58 John Fiore MD Dec 13, 2018 07:30
[2018-12-13 08:00] VITALS: BP 113/68
[2018-12-13] MEDS: Pantoprazole Inj IV SCH (09:10)
[2018-12-13] MEDS: Sucralfate 1gm tab GT SCH ×4 (09:10→21:01)
[2018-12-13] MEDS: Heparin 5000 units/ml inj SUBQ SCH ×2 (09:14→20:19)
--- NOTE | 2018-12-13 10:30 | NUR ---
NURSE NOTES: Meds given as ordered.
[2018-12-13 12:00] VITALS: BP 127/60
--- NOTE | 2018-12-13 12:15 | General Progress Note ---
Assessment/Plan Problem List: (1) Severe sepsis ICD Codes: A41.9 - Sepsis, unspecified organism; R65.20 - Severe sepsis without septic shock SNOMED: 58445442 (2) Severe protein-calorie malnutrition ICD Codes: E43 - Unspecified severe protein-calorie malnutrition SNOMED: 055562539 (3) Feeding by G-tube ICD Codes: Z93.1 - Gastrostomy status SNOMED: 805671174, 610674168 (4) Respiratory failure, [id number] ICD Codes: J96.20 - Respiratory failure, [id number] SNOMED: 69223720 (5) Anemia ICD Codes: D64.9 - Anemia, unspecified SNOMED: 270777802 (6) Aspiration pneumonia ICD Codes: J69.0 - Pneumonitis due to inhalation of food and vomit SNOMED: 898285484 (7) Acute renal failure ICD Codes: N17.9 - Acute kidney failure, unspecified SNOMED: 85427051 Status: unchanged Assessment/Plan vent abx cbc bmp am Subjective Constitutional: Reports: weakness Allergies: Coded Allergies: NO KNOWN DRUG ALLERGIES (Verified Allergy, Unknown, 09/11/16) All Systems: reviewed and negative except above Subjective trach vent altered Objective Last 24 Hour Vital Signs Date Time Temp Pulse Resp B/P (MAP) Pulse Ox O2 Delivery O2 Flow Rate FiO2 12/13/18 10:50 82 16 30 12/13/18 08:44 79 17 30 12/13/18 08:00 83 12/13/18 08:00 98.2 84 18 113/68 (83) 97 12/13/18 08:00 30 12/13/18 08:00 Mechanical Ventilator 12/13/18 07:31 78 16 30 12/13/18 06:29 98.4 12/13/18 06:29 98.4 12/13/18 05:59 99.7 12/13/18 05:00 93 17 30 12/13/18 04:00 96 12/13/18 04:00 Mechanical Ventilator 12/13/18 04:00 99.5 92 20 125/62 (83) 99 12/13/18 04:00 30 12/13/18 03:00 93 19 30 12/13/18 01:50 93 19 30 12/13/18 00:00 Mechanical Ventilator 4/5/19 00:00 98.8 94 16 142/74 (96) 98 12/13/18 00:00 30 12/13/18 00:00 96 12/12/18 22:45 102 20 30 12/12/18 20:53 110 20 30 12/12/18 20:49 98.5 12/12/18 20:00 100.0 95 21 102/77 (85) 100 12/12/18 20:00 30 12/12/18 20:00 Mechanical Ventilator 12/12/18 20:00 99 12/12/18 19:45 105 16 30 12/12/18 16:55 86 16 30 12/12/18 16:00 100.1 90 16 149/76 (100) 100 12/12/18 16:00 85 12/12/18 16:00 30 12/12/18 16:00 Mechanical Ventilator 12/12/18 14:40 81 16 30 12/12/18 13:45 85 16 30 Intake and Output 12/12/18 12/13/18 18:59 06:59 Intake Total 710 ml 450.0 ml Output Total 600 ml 500 ml Balance 110 ml -50.0 ml Intake Free Water 200 ml 100 ml IV Total 110.0 ml Tube Feeding 330 ml 240 ml Other 180 ml Output Urine Total 600 ml 500 ml Laboratory Tests 12/13/18 04:00: White Blood Count 15.3H, Red Blood Count 3.26L, Hemoglobin 8.8L, Hematocrit 27.2L, Mean Corpuscular Volume 83, Mean Corpuscular Hemoglobin 27.2, Mean Corpuscular Hemoglobin Concent 32.6, Red Cell Distribution Width 14.5, Platelet Count 425, Mean Platelet Volume 7.0, Neutrophils (%) (Auto) 81.1H, Lymphocytes ( %) (Auto) 8.2L, Monocytes (%) (Auto) 8.5, Eosinophils (%) (Auto) 1.7, Basophils (%) (Auto) 0.6, Sodium Level 131L, Potassium Level 3.8, Chloride Level 97L, Carbon Dioxide Level 19L, Anion Gap 15, Blood Urea Nitrogen 22H, Creatinine 1.4H , Estimat Glomerular Filtration Rate 50.1, Glucose Level 121H, Calcium Level 9.5 Height (Feet): 5 Height (Inches): 10.00 Weight (Pounds): 132 General Appearance: lethargic EENT: normal ENT inspection Neck: normal alignment Cardiovascular: normal peripheral pulses, normal rate, regular rhythm Respiratory/Chest: chest wall non-tender, lungs clear, normal breath sounds Abdomen: normal bowel sounds, non tender, soft Extremities: normal inspection Edema: no edema noted Arm (L), no edema noted Arm (R), no edema noted Leg (L), no edema noted Leg (R), no edema noted Pedal (L), no edema noted Pedal (R), no edema noted Generalized Neurologic: motor weakness Skin: normal pigmentation, warm/dry Gato Viveros DO Dec 13, 2018 12:15
--- NOTE | 2018-12-13 13:27 | NUR ---
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 RESPIRATORY FAILURE ACUTE ON CHRONIC VS: BP 113/97, P 82, T 99.7, RR 16, SpO2 97 on VENT AC 16, TV 600, PEEP 5.0, FiO2 30 WBC 15.3, RBC 3.26, Hgb 8.8, Hct 27.2, Na 131, BUN 22, CR 1.4 IS: PIPERACILLIN/TAZOBACTAM/D5 100ml IV SUCRALFATE 1gm GT PROTONIX 40mg IV SYNTHROID 75mcg GT HEPARIN SUBQ SDU STATUS
--- NOTE | 2018-12-13 14:58 | NUR ---
*-*INSURANCE *-* UPDATED CLINIC[facility] JOSE Soares P- [phone] F- [phone]...REVIEW/CLINICAL
--- NOTE | 2018-12-13 15:59 | Pulmonolgy Critical Care Note ---
Critical Care - Asmt/Plan Problems: (1) Respiratory failure, [id number] (2) Aspiration pneumonia (3) Severe sepsis (4) Anemia (5) Psychosis (6) Hypothyroidism (7) Severe protein-calorie malnutrition (8) Feeding by G-tube Respiratory: monitor respiratory rate, adjust FIO2, CXR Cardiac: continue to monitor HR/BP Renal: F/U I&O, keep IV fluid, check electrolytes Gastrointestinal: continue feedings/current rate Endocrine: monitor blood sugar, check TSH Hematologic: monitor H/H, transfuse if hgb<8.5 Neurologic: PRN Ativan, keep patient comfortable Prophylaxis: Protonix Disposition: keep in ICU Time Spent (Minutes): 40 Notes Reviewed: cardio, 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 with: nurses, consultants, pillowcase cutterpower manager - Objective Last 24 Hour Vital Signs Date Time Temp Pulse Resp B/P (MAP) Pulse Ox O2 Delivery O2 Flow Rate FiO2 12/13/18 15:27 87 16 30 12/13/18 15:27 87 16 Mechanical Ventilator 15.0 40 12/13/18 12:47 89 20 30 12/13/18 12:00 Mechanical Ventilator 12/13/18 12:00 79 12/13/18 12:00 98.4 82 18 127/60 (82) 97 12/13/18 12:00 30 12/13/18 10:50 82 16 30 12/13/18 08:44 79 17 30 12/13/18 08:00 83 12/13/18 08:00 98.2 84 18 113/68 (83) 97 12/13/18 08:00 30 12/13/18 08:00 Mechanical Ventilator 12/13/18 07:31 78 16 30 12/13/18 06:29 98.4 12/13/18 06:29 98.4 12/13/18 05:59 99.7 12/13/18 05:00 93 17 30 12/13/18 04:00 96 12/13/18 04:00 Mechanical Ventilator 12/13/18 04:00 99.5 92 20 125/62 (83) 99 12/13/18 04:00 30 12/13/18 03:00 93 19 30 12/13/18 01:50 93 19 30 12/13/18 00:00 Mechanical Ventilator 12/13/18 00:00 98.8 94 16 142/74 (96) 98 12/13/18 00:00 30 12/13/18 00:00 96 12/12/18 22:45 102 20 30 12/12/18 20:53 110 20 30 12/12/18 20:49 98.5 12/12/18 20:00 100.0 95 21 102/77 (85) 100 12/12/18 20:00 30 12/12/18 20:00 Mechanical Ventilator 12/12/18 20:00 99 12/12/18 19:45 105 16 30 12/12/18 16:55 86 16 30 12/12/18 16:00 100.1 90 16 149/76 (100) 100 12/12/18 16:00 85 12/12/18 16:00 30 12/12/18 16:00 Mechanical Ventilator Status: awake Condition: critical Neck: full ROM Lungs: chest wall tender Heart: regular Abdomen: feeding tube Extremities: edema Critical Care - Subjective ROS Limited/Unobtainable: Yes ICU Day: late note for 12/12 Condition: critical EKG Rhythm: Sinus Rhythm FI02: 30 Vent Support Breath Rate: 16 Vent Support Mode: AC Vent Tidal Volume: 600 Sputum Amount: Moderate PEEP: 5.0 PIP: 28 Tube Feeding Amount: 30 I&O: Intake and Output 12/12/18 12/13/18 19:00 07:00 Intake Total 740 ml 420.0 ml Output Total 600 ml 500 ml Balance 140 ml -80.0 ml Intake Free Water 200 ml 100 ml IV Total 110.0 ml Tube Feeding 360 ml 210 ml Other 180 ml Output Urine Total 600 ml 500 ml Huma Keating MD Dec 13, 2018 15:59
[2018-12-13 16:00] VITALS: BP 134/92
--- NOTE | 2018-12-13 16:00 | Pulmonolgy Critical Care Note ---
Critical Care - Asmt/Plan Problems: (1) Respiratory failure, [id number] (2) Aspiration pneumonia (3) Severe sepsis (4) Anemia (5) Psychosis (6) Hypothyroidism (7) Severe protein-calorie malnutrition (8) Feeding by G-tube Respiratory: monitor respiratory rate, adjust FIO2, CXR Cardiac: continue to monitor HR/BP Renal: F/U I&O, keep IV fluid Infectious Disease: check cultures Gastrointestinal: continue feedings/current rate, hold feedings Endocrine: check TSH, continue sliding scale insulin Hematologic: monitor H/H, transfuse if hgb<8.5 Neurologic: PRN Morphine, keep patient comfortable Affect: PRN ativan Time Spent (Minutes): 40 Notes Reviewed: cardio, 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 with: nurses, consultants, director casegermination testing manager - Objective Last 24 Hour Vital Signs Date Time Temp Pulse Resp B/P (MAP) Pulse Ox O2 Delivery O2 Flow Rate FiO2 12/13/18 15:27 87 16 30 12/13/18 15:27 87 16 Mechanical Ventilator 15.0 40 12/13/18 12:47 89 20 30 12/13/18 12:00 Mechanical Ventilator 12/13/18 12:00 79 12/13/18 12:00 98.4 82 18 127/60 (82) 97 12/13/18 12:00 30 12/13/18 10:50 82 16 30 12/13/18 08:44 79 17 30 12/13/18 08:00 83 12/13/18 08:00 98.2 84 18 113/68 (83) 97 12/13/18 08:00 30 12/13/18 08:00 Mechanical Ventilator 12/13/18 07:31 78 16 30 12/13/18 06:29 98.4 12/13/18 06:29 98.4 12/13/18 05:59 99.7 12/13/18 05:00 93 17 30 12/13/18 04:00 96 12/13/18 04:00 Mechanical Ventilator 12/13/18 04:00 99.5 92 20 125/62 (83) 99 12/13/18 04:00 30 12/13/18 03:00 93 19 30 12/13/18 01:50 93 19 30 12/13/18 00:00 Mechanical Ventilator 12/13/18 00:00 98.8 94 16 142/74 (96) 98 4/5/19 00:00 30 12/13/18 00:00 96 12/12/18 22:45 102 20 30 12/12/18 20:53 110 20 30 12/12/18 20:49 98.5 12/12/18 20:00 100.0 95 21 102/77 (85) 100 12/12/18 20:00 30 12/12/18 20:00 Mechanical Ventilator 12/12/18 20:00 99 12/12/18 19:45 105 16 30 12/12/18 16:55 86 16 30 12/12/18 16:00 100.1 90 16 149/76 (100) 100 12/12/18 16:00 85 12/12/18 16:00 30 12/12/18 16:00 Mechanical Ventilator Status: awake Condition: critical HEENT: atraumatic Neck: full ROM Heart: HR/BP stable, regular Abdomen: non-tender, feeding tube Extremities: edema Critical Care - Subjective ROS Limited/Unobtainable: Yes Condition: critical EKG Rhythm: Sinus Rhythm FI02: 30 Vent Support Breath Rate: 16 Vent Support Mode: AC Vent Tidal Volume: 600 Sputum Amount: Moderate PEEP: 5.0 PIP: 28 Tube Feeding Amount: 30 I&O: Intake and Output 12/12/18 12/13/18 19:00 07:00 Intake Total 740 ml 420.0 ml Output Total 600 ml 500 ml Balance 140 ml -80.0 ml Intake Free Water 200 ml 100 ml IV Total 110.0 ml Tube Feeding 360 ml 210 ml Other 180 ml Output Urine Total 600 ml 500 ml CXR: no change Labs: Laboratory Tests Test 12/13/18 04:00 White Blood Count 15.3 K/UL (4.8-10.8) H Red Blood Count 3.26 M/UL (4.70-6.10) L Hemoglobin 8.8 G/DL (14.2-18.0) L Hematocrit 27.2 % (42.0-52.0) L Mean Corpuscular Volume 83 FL (80-99) Mean Corpuscular Hemoglobin 27.2 PG (27.0-31.0) Mean Corpuscular Hemoglobin Concent 32.6 G/DL (32.0-36.0) Red Cell Distribution Width 14.5 % (11.6-14.8) Platelet Count 425 K/UL (150-450) Mean Platelet Volume 7.0 FL (6.5-10.1) Neutrophils (%) (Auto) 81.1 % (45.0-75.0) H Lymphocytes (%) (Auto) 8.2 % (20.0-45.0) L Monocytes (%) (Auto) 8.5 % (1.0-10.0) Eosinophils (%) (Auto) 1.7 % (0.0-3.0) Basophils (%) (Auto) 0.6 % (0.0-2.0) Sodium Level 131 MMOL/L (136-145) L Potassium Level 3.8 MMOL/L (3.5-5.1) Chloride Level 97 MMOL/L (98-107) L Carbon Dioxide Level 19 MMOL/L (21-32) L Anion Gap 15 mmol/L (5-15) Blood Urea Nitrogen 22 mg/dL (7-18) H Creatinine 1.4 MG/DL (0.55-1.30) H Estimat Glomerular Filtration Rate 50.1 mL/min (>60) Glucose Level 121 MG/DL (74-106) H Calcium Level 9.5 MG/DL (8.5-10.1) Huma Keating MD Dec 13, 2018 16:00
--- NOTE | 2018-12-13 18:55 | NUR ---
RESPIRATORY NOTE: PT RECEIVED STABLE ON CURRENT CMV ORDERS: AC 16, 600, 30%, +5. ALARMS ON AND AUDIBLE. VENT. CIRCUIT SECURE AND OUT OF THE WAY. NO S/S OF RESPIRATORY DISTRESS NOTED AT THIS TIME. WILL CONTINUE TO MONITOR.
--- NOTE | 2018-12-13 19:17 | NUR ---
HAND-OFF: Report given to Eun/RN for continue care. Pt is Awake, still on Ventilator.
--- NOTE | 2018-12-13 19:18 | NUR ---
NURSE NOTES: Received report from Lisa RN, pt. in bed obtunded, eyes open, non-verbal, no signs or symptoms of acute cardiac or respiratory distress noted, cardiac monitoring on, pt. appears to be resting comfortably, bed in lowest position and call light within easy reach, bed alarm on, side rails up x's3 and safety brakes engaged, pt. appears to be tolerating current vent settings well- AC 16, TV 600, Fio2 @35%, PEEP 5- NO DISTRESS NOTED at time of assessment, all needs attended to, Jevity 1.2 running at 30cc/hr- no residual noted- via G-tube, Condom cath intact and draining to gravity, PRASHANTH PICC intact and patent- TKO, side rails padded for seizure precautions- no seizure activity noted, safety measures continued, will continue to monitor pt. and with plan of care.
--- NOTE | 2018-12-13 19:18 | NUR ---
HAND-OFF: Report given to Eun/ODILIA for continue care. Pt is Awake, still on Ventilator. Addendum: 12/13/18 at 2005 by Ian Gardner RN duplicated.
[2018-12-13 20:00] VITALS: BP 122/86
[2018-12-13] MEDS: Dyna-Hex 2% Top Sol 2oz TOPIC SCH (20:18)
[2018-12-14] VITALS: BP 114/66
[2018-12-14 04:00] VITALS: BP 121/66
--- NOTE | 2018-12-14 04:50 | NUR ---
RESPIRATORY NOTE: PT REMAINED STABLE ON CMV WITH CURRENT SETTINGS. SX PRN WITH NO ADVERSE REACTION. VENT CIRCUIT SECURE AND OUT OF THE WAY. NO S/S OF RESPIRATORY DISTRESS NOTED AT THIS TIME.
[2018-12-14] MEDS: Piperacillin/Tazobactam 3.375 GM in D5W 110 ML IV SCH ×3 (05:56→21:12)
[2018-12-14 06:04] LABS: BASOPHILS % (AUTO) 0.8 % (0.0-2.0); EOSINOPHILS % (AUTO) 2.9 % (0.0-3.0); HEMATOCRIT 25.4 % (42.0-52.0); HEMOGLOBIN 8.2 G/DL (14.2-18.0); LYMPHOCYTES % (AUTO) 12.5 % (20.0-45.0); MEAN CORPUSCULAR VOLUME 83 FL (80-99); MONOCYTES % (AUTO) 10.2 % (1.0-10.0); NEUTROPHILS % (AUTO) 73.7 % (45.0-75.0); PLATELET COUNT 389 K/UL (150-450); RED BLOOD COUNT 3.06 M/UL (4.70-6.10); RED CELL DISTRIBUTION WIDTH 14.6 % (11.6-14.8); WHITE BLOOD COUNT 12.5 K/UL (4.8-10.8)
[2018-12-14 06:29] LABS: ANION GAP 12 mmol/L (5-15); BLOOD UREA NITROGEN 21 mg/dL (7-18); CARBON DIOXIDE 23 MMOL/L (21-32); CHLORIDE 97 MMOL/L (98-107); CREATININE 1.4 MG/DL (0.55-1.30); POTASSIUM 3.7 MMOL/L (3.5-5.1); SODIUM 132 MMOL/L (136-145)
--- NOTE | 2018-12-14 06:48 | NUR ---
RESPIRATORY NOTE: Received pt on trach cuffed, Portex 8 with the current vent setting: AC 16-600ml-30% peep 5, pt is tolerating well. Bari rhonchi B/S heard upon auscultation, sxn moderate amt frothy/thin white owens secretions without incidents. Oral care done. No SOB or resp distress noted at this time. Alarms are set and audible, vent is plugged into the red outlet, ambu bag and spare trach kit are at bedside. Will continue to monitor.
--- NOTE | 2018-12-14 07:19 | NUR ---
HAND-OFF: Report given to Rachele HARTLEY, pt. remains stable and no signs of distress noted.
--- NOTE | 2018-12-14 07:30 | NUR ---
NURSE NOTES: Received report from Tamara Montalvo RN. Patient alert, nonverbal, unable to follow commands and make needs known. Trach to vent with settings of AC 16, TV 600, Fio2 30%, PEEP 5, no s/s of respiratory distress noted. Noted with moderate amount of thin white secretions in mouth, oral suctioning provided. GT feeding of Jevity 1.2 on hold for carafate administration per pharmacy. Condom catheter in place and draining well. Right upper arm PICC infusing Zosyn 3.375g @ 27.5 cc/hr, asymptomatic. Bed locked in lowest position with padded side rails up x 3. All needs attended to. Will continue to monitor.
--- NOTE | 2018-12-14 07:53 | NUR ---
NURSE NOTES: Spoke with Hawa from pharmacy to clarify medication administration instrucitons for carafate. Per Hawa, patients receiving meals should take carafate on an empty stomach but there is no indication that patients on tube feeding must have their feeding held before or after administration. There is only instructions stating that patient's GT need to be flushed with 30 cc before and after administration. GT feeding of Jevity 1.2 restarted at 30 cc/hr. Will continue to monitor.
[2018-12-14 08:00] VITALS: BP 138/65
--- NOTE | 2018-12-14 08:34 | General Progress Note ---
Assessment/Plan Problem List: (1) Severe sepsis ICD Codes: A41.9 - Sepsis, unspecified organism; R65.20 - Severe sepsis without septic shock SNOMED: 42455074 (2) Severe protein-calorie malnutrition ICD Codes: E43 - Unspecified severe protein-calorie malnutrition SNOMED: 596667774 (3) Feeding by G-tube ICD Codes: Z93.1 - Gastrostomy status SNOMED: 034222311, 056319140 (4) Respiratory failure, gixxt-tt-xcewugi ICD Codes: J96.20 - Respiratory failure, tgjsv-yx-ybarjby SNOMED: 92733137 (5) Anemia ICD Codes: D64.9 - Anemia, unspecified SNOMED: 725705899 (6) Aspiration pneumonia ICD Codes: J69.0 - Pneumonitis due to inhalation of food and vomit SNOMED: 404565134 (7) Acute renal failure ICD Codes: N17.9 - Acute kidney failure, unspecified SNOMED: 93937563 Status: unchanged Assessment/Plan vent abx cbc bmp am Subjective Constitutional: Reports: weakness Allergies: Coded Allergies: NO KNOWN DRUG ALLERGIES (Verified Allergy, Unknown, 09/11/16) All Systems: reviewed and negative except above Subjective trach vent altered Objective Last 24 Hour Vital Signs Date Time Temp Pulse Resp B/P (MAP) Pulse Ox O2 Delivery O2 Flow Rate FiO2 12/14/18 08:00 Mechanical Ventilator 12/14/18 08:00 30 12/14/18 06:48 92 21 30 12/14/18 04:50 85 16 30 12/14/18 04:00 Mechanical Ventilator 12/14/18 04:00 97.9 84 16 121/66 (84) 100 12/14/18 04:00 83 12/14/18 04:00 30 12/14/18 03:15 75 16 30 12/14/18 01:00 79 16 30 12/14/18 00:00 Mechanical Ventilator 12/14/18 00:00 81 12/14/18 00:00 97.9 84 18 114/66 (82) 98 12/14/18 00:00 30 12/13/18 23:10 82 17 30 12/13/18 21:19 90 16 30 12/13/18 20:00 30 12/13/18 20:00 Mechanical Ventilator 12/13/18 20:00 90 12/13/18 20:00 98.2 94 22 122/86 (98) 95 12/13/18 18:55 60 16 30 12/13/18 17:00 94 21 30 12/13/18 16:00 98.1 82 18 134/92 (106) 96 12/13/18 16:00 Mechanical Ventilator 12/13/18 16:00 85 12/13/18 16:00 30 12/13/18 15:27 87 16 30 12/13/18 15:27 87 16 Mechanical Ventilator 15.0 40 12/13/18 12:47 89 20 30 12/13/18 12:00 Mechanical Ventilator 12/13/18 12:00 79 12/13/18 12:00 98.4 82 18 127/60 (82) 97 12/13/18 12:00 30 12/13/18 10:50 82 16 30 12/13/18 08:44 79 17 30 Intake and Output 12/13/18 12/14/18 19:00 07:00 Intake Total 770.0 ml 477.5 ml Output Total 350 ml 500 ml Balance 420.0 ml -22.5 ml Intake Free Water 300 ml 100 ml IV Total 110.0 ml 137.5 ml Tube Feeding 360 ml 240 ml Output Urine Total 350 ml 500 ml Laboratory Tests 12/14/18 04:15: White Blood Count 12.5H, Red Blood Count 3.06L, Hemoglobin 8.2L, Hematocrit 25.4L, Mean Corpuscular Volume 83, Mean Corpuscular Hemoglobin 26.9L, Mean Corpuscular Hemoglobin Concent 32.4, Red Cell Distribution Width 14.6, Platelet Count 389, Mean Platelet Volume 6.6, Neutrophils (%) (Auto) 73.7, Lymphocytes (% ) (Auto) 12.5L, Monocytes (%) (Auto) 10.2H, Eosinophils (%) (Auto) 2.9, Basophils (%) (Auto) 0.8, Sodium Level 132L, Potassium Level 3.7, Chloride Level 97L, Carbon Dioxide Level 23, Anion Gap 12, Blood Urea Nitrogen 21H, Creatinine 1.4H, Estimat Glomerular Filtration Rate 50.1, Glucose Level 128H, Calcium Level 9.0 Height (Feet): 5 Height (Inches): 10.00 Weight (Pounds): 132 General Appearance: lethargic EENT: normal ENT inspection Neck: normal alignment Cardiovascular: normal peripheral pulses, normal rate, regular rhythm Respiratory/Chest: chest wall non-tender, lungs clear, normal breath sounds Abdomen: normal bowel sounds, non tender, soft Extremities: normal inspection Edema: no edema noted Arm (L), no edema noted Arm (R), no edema noted Leg (L), no edema noted Leg (R), no edema noted Pedal (L), no edema noted Pedal (R), no edema noted Generalized Neurologic: motor weakness Skin: normal pigmentation, warm/dry Gato Viveros DO Dec 14, 2018 08:34
[2018-12-14] MEDS: Pantoprazole Inj IV SCH (08:44)
[2018-12-14] MEDS: Sucralfate 1gm tab GT SCH ×4 (08:44→20:24)
[2018-12-14] MEDS: Heparin 5000 units/ml inj SUBQ SCH ×2 (08:46→20:25)
--- NOTE | 2018-12-14 08:58 | NUR ---
CASE MANAGEMENT: REVIEW 12/14/2018 SI: SEVERE SEPSIS . RESPIRATORY FAILURE ACUTE ON CHRONIC. T 99.5 HR 91 RR 20 B/P 138/65 SATS 99% ON MECH VENT FiO2 30 WBC 12.5 NA 132 CL 97 BUN 21 CR 1.4 GLU 128 IS: ZOSYN IV Q8H CARAFATE GT QID STEP DOWN UNIT PLAN OF CARE: CONTINUE VENT SUPPORT IV ANTIBx
--- NOTE | 2018-12-14 10:32 | Pulmonolgy Critical Care Note ---
Critical Care - Asmt/Plan Problems: (1) Respiratory failure, hckww-zy-grttvlo (2) Aspiration pneumonia (3) Severe sepsis (4) Anemia (5) Psychosis (6) Hypothyroidism (7) Severe protein-calorie malnutrition (8) Feeding by G-tube Respiratory: monitor respiratory rate, adjust FIO2 Cardiac: continue to monitor HR/BP Renal: F/U I&O Infectious Disease: check cultures, continue antibiotics Gastrointestinal: continue feedings/current rate Endocrine: monitor blood sugar, check TSH, continue sliding scale insulin Hematologic: monitor H/H, transfuse if hgb<8.5 Neurologic: PRN Ativan, PRN Morphine Prophylaxis: Protonix Time Spent (Minutes): 40 Notes 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, 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, 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 with: nurses, consultants, 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 - Objective Last 24 Hour Vital Signs Date Time Temp Pulse Resp B/P (MAP) Pulse Ox O2 Delivery O2 Flow Rate FiO2 12/14/18 09:04 96 17 30 12/14/18 08:00 94 12/14/18 08:00 Mechanical Ventilator 12/14/18 08:00 99.5 91 20 138/65 (89) 99 12/14/18 08:00 30 12/14/18 06:48 92 21 30 12/14/18 04:50 85 16 30 12/14/18 04:00 Mechanical Ventilator 12/14/18 04:00 97.9 84 16 121/66 (84) 100 12/14/18 04:00 83 12/14/18 04:00 30 12/14/18 03:15 75 16 30 12/14/18 01:00 79 16 30 12/14/18 00:00 Mechanical Ventilator 12/14/18 00:00 81 12/14/18 00:00 97.9 84 18 114/66 (82) 98 12/14/18 00:00 30 12/13/18 23:10 82 17 30 12/13/18 21:19 90 16 30 12/13/18 20:00 30 12/13/18 20:00 Mechanical Ventilator 12/13/18 20:00 90 12/13/18 20:00 98.2 94 22 122/86 (98) 95 12/13/18 18:55 60 16 30 12/13/18 17:00 94 21 30 12/13/18 16:00 98.1 82 18 134/92 (106) 96 12/13/18 16:00 Mechanical Ventilator 12/13/18 16:00 85 12/13/18 16:00 30 12/13/18 15:27 87 16 30 12/13/18 15:27 87 16 Mechanical Ventilator 15.0 40 12/13/18 12:47 89 20 30 12/13/18 12:00 Mechanical Ventilator 12/13/18 12:00 79 12/13/18 12:00 98.4 82 18 127/60 (82) 97 12/13/18 12:00 30 12/13/18 10:50 82 16 30 Status: awake Condition: critical HEENT: atraumatic Neck: full ROM Lungs: clear Heart: HR/BP stable Abdomen: soft, active bowel sounds Extremities: no C/C/E, edema Decubiti: location Critical Care - Subjective ROS Limited/Unobtainable: Yes Condition: critical EKG Rhythm: Sinus Rhythm FI02: 30 Vent Support Breath Rate: 16 Vent Support Mode: AC Vent Tidal Volume: 600 Sputum Amount: Small PEEP: 5.0 PIP: 22 I&O: Intake and Output 12/13/18 12/14/18 18:59 06:59 Intake Total 740.0 ml 507.5 ml Output Total 350 ml 500 ml Balance 390.0 ml 7.5 ml Intake Free Water 300 ml 100 ml IV Total 110.0 ml 137.5 ml Tube Feeding 330 ml 270 ml Output Urine Total 350 ml 500 ml CXR: no change Labs: Laboratory Tests Test 12/14/18 04:15 White Blood Count 12.5 K/UL (4.8-10.8) H Red Blood Count 3.06 M/UL (4.70-6.10) L Hemoglobin 8.2 G/DL (14.2-18.0) L Hematocrit 25.4 % (42.0-52.0) L Mean Corpuscular Volume 83 FL (80-99) Mean Corpuscular Hemoglobin 26.9 PG (27.0-31.0) L Mean Corpuscular Hemoglobin Concent 32.4 G/DL (32.0-36.0) Red Cell Distribution Width 14.6 % (11.6-14.8) Platelet Count 389 K/UL (150-450) Mean Platelet Volume 6.6 FL (6.5-10.1) Neutrophils (%) (Auto) 73.7 % (45.0-75.0) Lymphocytes (%) (Auto) 12.5 % (20.0-45.0) L Monocytes (%) (Auto) 10.2 % (1.0-10.0) H Eosinophils (%) (Auto) 2.9 % (0.0-3.0) Basophils (%) (Auto) 0.8 % (0.0-2.0) Sodium Level 132 MMOL/L (136-145) L Potassium Level 3.7 MMOL/L (3.5-5.1) Chloride Level 97 MMOL/L (98-107) L Carbon Dioxide Level 23 MMOL/L (21-32) Anion Gap 12 mmol/L (5-15) Blood Urea Nitrogen 21 mg/dL (7-18) H Creatinine 1.4 MG/DL (0.55-1.30) H Estimat Glomerular Filtration Rate 50.1 mL/min (>60) Glucose Level 128 MG/DL (74-106) H Calcium Level 9.0 MG/DL (8.5-10.1) Huma Keating MD Dec 14, 2018 10:32
[2018-12-14 12:00] VITALS: BP 143/95
--- NOTE | 2018-12-14 12:58 | Infectious Diseases Prog Note ---
Assessment/Plan Assessment/Plan Abx: IV Vancomycin 12/08- Cefepime 12/08- Levaquinx 1 12/08 Assessment: Leukocytosis; imrpoving- ?UTI -u/a wbc 5-10, nit n eg, leuk +3; ucx NTD -CXR: No acute process. Right basilar atelectasis -Sp cx 12/09/18 E.coli (ESBL), P.a. 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 diff Dysphagia s/p G-tube Anemia. CVA/TIA w/ hemiplegia functional quadriplegia chronic encephalopathy CAD CHF Dm2 GIB s/p multiple EGDs in the past hx of severe esophagitis schizoaffective disease halfway resident multiple admissions VRE colonization Plan: - Continue Zosyn #3 for sputum organisms Additional P.a. Sensi pending. Im hesitant to start Amikacin given increased cr but if leukocytosis continues to increase it may be required. - 12/12 S/P Vancomycin and Cefepime #5 -12/08 SP Levaquin x1 -11/06 SP Amikacin #6 -11/01 SP Meropenem #4 -10/29 SP IV Vanco #2, Cefepime #2 and Tigecycline #1 -10/28 SP LEavquin x1 -10/09 SP Ertapenem #5 - 10/04 SP Meropenem #2 -10/03/18 SP IV Vancomycin #2 and Cefepime #2 -08/09/18 SP Bactrim #7 -08/03 SP Vancomycin and Cefepime #3 -08/01/18 SP Ceftriaxone x1 -f.u cx (Bl, SP, urine) -Monitor CBC/CMP, temperatures -Peg/trach care -aspiration precautions Will continue to follow along with you. Subjective Allergies: Coded Allergies: NO KNOWN DRUG ALLERGIES (Verified Allergy, Unknown, 09/11/16) Subjective afebrile in >36hrs wbc improving Bcx NTD Objective Vital Signs Last 24 Hour Vital Signs Date Time Temp Pulse Resp B/P (MAP) Pulse Ox O2 Delivery O2 Flow Rate FiO2 12/14/18 12:00 30 12/14/18 12:00 Mechanical Ventilator 12/14/18 12:00 99.9 96 18 143/95 (111) 97 12/14/18 10:40 93 21 30 12/14/18 09:04 96 17 30 12/14/18 08:00 94 12/14/18 08:00 Mechanical Ventilator 12/14/18 08:00 99.5 91 20 138/65 (89) 99 12/14/18 08:00 30 12/14/18 06:48 92 21 30 12/14/18 04:50 85 16 30 12/14/18 04:00 Mechanical Ventilator 12/14/18 04:00 97.9 84 16 121/66 (84) 100 12/14/18 04:00 83 12/14/18 04:00 30 12/14/18 03:15 75 16 30 12/14/18 01:00 79 16 30 12/14/18 00:00 Mechanical Ventilator 12/14/18 00:00 81 12/14/18 00:00 97.9 84 18 114/66 (82) 98 12/14/18 00:00 30 12/13/18 23:10 82 17 30 12/13/18 21:19 90 16 30 12/13/18 20:00 30 12/13/18 20:00 Mechanical Ventilator 12/13/18 20:00 90 12/13/18 20:00 98.2 94 22 122/86 (98) 95 12/13/18 18:55 60 16 30 12/13/18 17:00 94 21 30 12/13/18 16:00 98.1 82 18 134/92 (106) 96 12/13/18 16:00 Mechanical Ventilator 12/13/18 16:00 85 12/13/18 16:00 30 12/13/18 15:27 87 16 30 12/13/18 15:27 87 16 Mechanical Ventilator 15.0 40 Height (Feet): 5 Height (Inches): 10.00 Weight (Pounds): 132 Objective Status: awake Condition: critical HEENT: atraumatic Neck: full ROM, trach Lungs: rales, rhonchi Heart: HR/BP stable, HR/BP unstable Abdomen: soft, non-tender Extremities: edema Decubiti: location Laboratory Tests Test 12/14/18 04:15 White Blood Count 12.5 K/UL (4.8-10.8) H Red Blood Count 3.06 M/UL (4.70-6.10) L Hemoglobin 8.2 G/DL (14.2-18.0) L Hematocrit 25.4 % (42.0-52.0) L Mean Corpuscular Volume 83 FL (80-99) Mean Corpuscular Hemoglobin 26.9 PG (27.0-31.0) L Mean Corpuscular Hemoglobin Concent 32.4 G/DL (32.0-36.0) Red Cell Distribution Width 14.6 % (11.6-14.8) Platelet Count 389 K/UL (150-450) Mean Platelet Volume 6.6 FL (6.5-10.1) Neutrophils (%) (Auto) 73.7 % (45.0-75.0) Lymphocytes (%) (Auto) 12.5 % (20.0-45.0) L Monocytes (%) (Auto) 10.2 % (1.0-10.0) H Eosinophils (%) (Auto) 2.9 % (0.0-3.0) Basophils (%) (Auto) 0.8 % (0.0-2.0) Sodium Level 132 MMOL/L (136-145) L Potassium Level 3.7 MMOL/L (3.5-5.1) Chloride Level 97 MMOL/L (98-107) L Carbon Dioxide Level 23 MMOL/L (21-32) Anion Gap 12 mmol/L (5-15) Blood Urea Nitrogen 21 mg/dL (7-18) H Creatinine 1.4 MG/DL (0.55-1.30) H Estimat Glomerular Filtration Rate 50.1 mL/min (>60) Glucose Level 128 MG/DL (74-106) H Calcium Level 9.0 MG/DL (8.5-10.1) Current Medications Medications (Trade) Dose Ordered Sig/Wanda Route PRN Reason Start Time Stop Time Status Last Admin Dose Admin Acetaminophen (Tylenol) 650 mg Q4H PRN ORAL FEVER 12/08/18 16:15 01/07/19 16:14 12/13/18 05:59 Chlorhexidine Gluconate (Jasmin-Hex 2%) 1 applic DAILY@2000 TOPIC 12/11/18 20:00 01/10/19 19:59 12/13/18 20:18 Dextrose (Dextrose 50%) 25 ml Q30M PRN IV Hypoglycemia 12/08/18 16:15 01/07/19 16:14 Dextrose (Dextrose 50%) 50 ml Q30M PRN IV hypoglycemia 12/08/18 16:15 01/07/19 16:14 Heparin Sodium (Porcine) (Heparin 5000 units/ml) 5,000 units EVERY 12 HOURS SUBQ 12/08/18 21:00 01/07/19 20:59 12/14/18 08:46 Levothyroxine Sodium (Synthroid) 75 mcg Q24H GT 12/09/18 06:30 01/08/19 06:29 12/14/18 06:00 Lorazepam (Ativan 2mg/ml 1ml) 2 mg Q2H PRN IV For Anxiety 12/08/18 16:00 12/15/18 15:59 Morphine Sulfate (Morphine Sulfate) 4 mg Q4H PRN IVP Severe Pain (Pain Scale 7-10) 12/08/18 16:00 12/15/18 15:59 Ondansetron HCl (Zofran) 4 mg Q6H PRN IVP Nausea & Vomiting 12/08/18 16:00 01/07/19 15:59 Pantoprazole (Protonix) 40 mg DAILY IV 12/09/18 09:00 01/08/19 08:59 12/14/18 08:44 Piperacillin Sod/ Tazobactam Sod 3.375 gm/Dextrose 110 ml @ 27.5 mls/hr EVERY 8 HOURS IV 12/12/18 14:00 12/17/18 13:59 12/14/18 05:56 Polyethylene Glycol (Miralax) 17 gm DAILYPRN PRN ORAL Constipation 12/08/18 16:00 01/07/19 15:59 Sucralfate (Carafate) 1 gm FOUR TIMES A DAY GT 12/14/18 09:00 01/07/19 17:59 12/14/18 12:51 Lisy Lai M.D. Dec 14, 2018 12:58
[2018-12-14 16:00] VITALS: BP 120/86
[2018-12-14] MEDS ORDERED: D5NS 1000ml IV ONE (16:58)
[2018-12-14] MEDS ORDERED: NS 275ml ONE (16:58)
[2018-12-14] MEDS ORDERED: Tubing IV Secondary IV ONE (16:58)
[2018-12-14] MEDS ORDERED: Sterile Water Irrig 1000ml IRRIG ONE (16:58)
--- NOTE | 2018-12-14 19:10 | NUR ---
HAND-OFF: Report given to Tamara Montalvo RN. Patient currently on Osmolite @ 40 cc/hr, endorsed to nurse to increase tube feeding as tolerated.
--- NOTE | 2018-12-14 19:20 | NUR ---
NURSE NOTES: Pt report received Eun RN, Pt found resting comfortably with a neuro assessment of obtunded. All safety precautions are in affect such as bed is in lowest position, safety breaks engaged, bed alarm active, and call light within reach. Pt is a trach to vent with Rep/ vent settings of Portex 8, AC mode of 16, TV 600, Fio2 of 35% and a peep of 5. Pt case monitor is on and active and appears to be in no distress. Pt has a G tube that is running Osmolite at 40cc/hr, will continue to monitor residual to reach goal of 60cc/hr. Pt has a condom cath that is intact and draining to gravity. Pt has a R upper arm PICC that is running TKO. Will continue plan of care.
[2018-12-14 20:00] VITALS: BP 122/77
[2018-12-14] MEDS: Dyna-Hex 2% Top Sol 2oz TOPIC SCH (20:24)
[2018-12-15] VITALS: BP 145/67
[2018-12-15 04:00] VITALS: BP 118/69
--- NOTE | 2018-12-15 05:11 | NUR ---
RESPIRATORY NOTE: PT REMAINED STABLE ON CMV WITH CURRENT SETTINGS. SX PRN. VENT CIRCUIT SECURE AND OUT OF THE WAY. NO S/S OF RESPIRATORY DISTRESS NOTED AT THIS TIME.
[2018-12-15 05:54] LABS: BASOPHILS % (AUTO) 0.8 % (0.0-2.0); EOSINOPHILS % (AUTO) 3.7 % (0.0-3.0); HEMATOCRIT 25.3 % (42.0-52.0); HEMOGLOBIN 8.1 G/DL (14.2-18.0); LYMPHOCYTES % (AUTO) 16.4 % (20.0-45.0); MEAN CORPUSCULAR VOLUME 84 FL (80-99); MONOCYTES % (AUTO) 11.7 % (1.0-10.0); NEUTROPHILS % (AUTO) 67.3 % (45.0-75.0); PLATELET COUNT 372 K/UL (150-450); RED BLOOD COUNT 3.03 M/UL (4.70-6.10); WHITE BLOOD COUNT 11.8 K/UL (4.8-10.8)
[2018-12-15] MEDS: Piperacillin/Tazobactam 3.375 GM in D5W 110 ML IV SCH ×3 (06:05→21:53)
[2018-12-15 06:09] LABS: ALANINE AMINOTRANSFERASE 14 U/L (12-78); ALBUMIN 2.4 G/DL (3.4-5.0); ALBUMIN/GLOBULIN RATIO 0.5 (1.0-2.7); ALKALINE PHOSPHATASE 87 U/L (46-116); ANION GAP 11 mmol/L (5-15); ASPARTATE AMINO TRANSFERASE 11 U/L (15-37); BILIRUBIN,TOTAL 0.2 MG/DL (0.2-1.0); BLOOD UREA NITROGEN 20 mg/dL (7-18); CARBON DIOXIDE 23 MMOL/L (21-32); CHLORIDE 98 MMOL/L (98-107); CREATININE 1.3 MG/DL (0.55-1.30); POTASSIUM 3.6 MMOL/L (3.5-5.1); SODIUM 132 MMOL/L (136-145)
[2018-12-15 06:10] LABS: PHOSPHORUS 3.1 MG/DL (2.5-4.9)
--- NOTE | 2018-12-15 06:53 | NUR ---
NURSE NOTES: Mistakenly uploaded Wound Care photo with wrong site Pic of left ankle but label was incorrectly labeled as Right. retook picture with correct site.
--- NOTE | 2018-12-15 07:30 | NUR ---
HAND-OFF: Report given to Deborah HARTLEY and Bobby HARTLEY. Pt remains stable and no signs of distress noted. wounds checked during rounds.
--- NOTE | 2018-12-15 07:31 | NUR ---
NURSE NOTES: Received patient from Ca Montejo. Patient was awake and in bed. No signs of distress. bed at its lowest position and call light reach.
[2018-12-15 07:58] VITALS: BP 128/71
--- NOTE | 2018-12-15 08:37 | General Progress Note ---
Assessment/Plan Problem List: (1) Severe sepsis ICD Codes: A41.9 - Sepsis, unspecified organism; R65.20 - Severe sepsis without septic shock SNOMED: 88656682 (2) Severe protein-calorie malnutrition ICD Codes: E43 - Unspecified severe protein-calorie malnutrition SNOMED: 549947180 (3) Feeding by G-tube ICD Codes: Z93.1 - Gastrostomy status SNOMED: 785329673, 929872348 (4) Respiratory failure, orgrn-iq-fxnstas ICD Codes: J96.20 - Respiratory failure, vndxz-rn-jyxtwrn SNOMED: 05346277 (5) Anemia ICD Codes: D64.9 - Anemia, unspecified SNOMED: 336520368 (6) Aspiration pneumonia ICD Codes: J69.0 - Pneumonitis due to inhalation of food and vomit SNOMED: 346808881 (7) Acute renal failure ICD Codes: N17.9 - Acute kidney failure, unspecified SNOMED: 09700957 Status: unchanged Assessment/Plan vent abx cbc bmp am Subjective Constitutional: Reports: weakness Allergies: Coded Allergies: NO KNOWN DRUG ALLERGIES (Verified Allergy, Unknown, 09/11/16) All Systems: reviewed and negative except above Subjective trach vent altered Objective Last 24 Hour Vital Signs Date Time Temp Pulse Resp B/P (MAP) Pulse Ox O2 Delivery O2 Flow Rate FiO2 12/15/18 08:00 Mechanical Ventilator 12/15/18 07:58 98.4 75 18 128/71 (90) 100 12/15/18 07:08 78 16 40 12/15/18 05:11 77 17 40 12/15/18 04:00 40 12/15/18 04:00 75 12/15/18 04:00 98.4 74 16 118/69 (85) 100 12/15/18 04:00 Mechanical Ventilator 12/15/18 03:03 73 16 40 12/15/18 01:15 73 17 40 12/15/18 00:00 Mechanical Ventilator 12/15/18 00:00 98.2 82 18 145/67 (93) 99 12/15/18 00:00 77 12/14/18 23:25 74 17 40 12/14/18 21:09 78 16 40 12/14/18 20:00 40 12/14/18 20:00 Mechanical Ventilator 12/14/18 20:00 92 12/14/18 20:00 98.1 82 17 122/77 (92) 99 12/14/18 19:12 84 19 40 12/14/18 17:02 81 17 40 12/14/18 16:00 98.2 92 24 120/86 (97) 100 12/14/18 16:00 Mechanical Ventilator 12/14/18 16:00 40 12/14/18 15:29 86 12/14/18 15:16 96 20 40 12/14/18 12:30 95 20 30 12/14/18 12:01 96 12/14/18 12:00 30 12/14/18 12:00 Mechanical Ventilator 12/14/18 12:00 99.9 96 18 143/95 (111) 97 12/14/18 10:40 93 21 30 12/14/18 09:04 96 17 30 Intake and Output 12/14/18 12/15/18 19:00 07:00 Intake Total 697.5 ml 680.0 ml Output Total 550 ml 250 ml Balance 147.5 ml 430.0 ml Intake Free Water 100 ml IV Total 192.5 ml 110.0 ml Tube Feeding 325 ml 470 ml Other 180 ml Output Urine Total 550 ml 250 ml # Bowel Movements 2 4 Laboratory Tests 12/15/18 03:54: White Blood Count 11.8H, Red Blood Count 3.03L, Hemoglobin 8.1L, Hematocrit 25.3L, Mean Corpuscular Volume 84, Mean Corpuscular Hemoglobin 26.7L, Mean Corpuscular Hemoglobin Concent 31.9L, Red Cell Distribution Width 15.0H, Platelet Count 372, Mean Platelet Volume 6.8, Neutrophils (%) (Auto) 67.3, Lymphocytes (%) (Auto) 16.4L, Monocytes (%) (Auto) 11.7H, Eosinophils (%) (Auto ) 3.7H, Basophils (%) (Auto) 0.8, Sodium Level 132L, Potassium Level 3.6, Chloride Level 98, Carbon Dioxide Level 23, Anion Gap 11, Blood Urea Nitrogen 20H, Creatinine 1.3, Estimat Glomerular Filtration Rate 54.6, Glucose Level 133H , Calcium Level 9.0, Phosphorus Level 3.1, Magnesium Level 1.9, Total Bilirubin 0.2, Aspartate Amino Transf (AST/SGOT) 11L, Alanine Aminotransferase (ALT/SGPT) 14, Alkaline Phosphatase 87, Total Protein 7.6, Albumin 2.4L, Globulin 5.2, Albumin/Globulin Ratio 0.5L Height (Feet): 5 Height (Inches): 10.00 Weight (Pounds): 132 General Appearance: lethargic EENT: normal ENT inspection Neck: normal alignment Cardiovascular: normal peripheral pulses, normal rate, regular rhythm Respiratory/Chest: chest wall non-tender, lungs clear, normal breath sounds Abdomen: normal bowel sounds, non tender, soft Extremities: normal inspection Edema: no edema noted Arm (L), no edema noted Arm (R), no edema noted Leg (L), no edema noted Leg (R), no edema noted Pedal (L), no edema noted Pedal (R), no edema noted Generalized Neurologic: motor weakness Skin: normal pigmentation, warm/dry Gato Viveros DO Dec 15, 2018 08:37
[2018-12-15] MEDS: Pantoprazole Inj IV SCH (09:16)
[2018-12-15] MEDS: Sucralfate 1gm tab GT SCH ×3 (09:16→23:59)
[2018-12-15] MEDS: Heparin 5000 units/ml inj SUBQ SCH ×2 (09:17→20:21)
[2018-12-15] MEDS ORDERED: Miralax 17gm pkt GT PRN (10:45)
--- NOTE | 2018-12-15 11:55 | Pulmonolgy Critical Care Note ---
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 with: nurses, consultants, outpatient case manageraccounting systems manager - Objective Last 24 Hour Vital Signs Date Time Temp Pulse Resp B/P (MAP) Pulse Ox O2 Delivery O2 Flow Rate FiO2 12/15/18 11:04 72 20 40 12/15/18 09:01 75 16 40 12/15/18 08:00 40 12/15/18 08:00 77 12/15/18 08:00 Mechanical Ventilator 12/15/18 07:58 98.4 75 18 128/71 (90) 100 12/15/18 07:08 78 16 40 12/15/18 05:11 77 17 40 12/15/18 04:00 40 12/15/18 04:00 75 12/15/18 04:00 98.4 74 16 118/69 (85) 100 12/15/18 04:00 Mechanical Ventilator 12/15/18 03:03 73 16 40 12/15/18 01:15 73 17 40 12/15/18 00:00 Mechanical Ventilator 12/15/18 00:00 98.2 82 18 145/67 (93) 99 12/15/18 00:00 77 12/14/18 23:25 74 17 40 12/14/18 21:09 78 16 40 12/14/18 20:00 40 12/14/18 20:00 Mechanical Ventilator 12/14/18 20:00 92 12/14/18 20:00 98.1 82 17 122/77 (92) 99 12/14/18 19:12 84 19 40 12/14/18 17:02 81 17 40 12/14/18 16:00 98.2 92 24 120/86 (97) 100 12/14/18 16:00 Mechanical Ventilator 12/14/18 16:00 40 12/14/18 15:29 86 12/14/18 15:16 96 20 40 12/14/18 12:30 95 20 30 12/14/18 12:01 96 12/14/18 12:00 30 12/14/18 12:00 Mechanical Ventilator 12/14/18 12:00 99.9 96 18 143/95 (111) 97 Status: awake Condition: critical Neck: full ROM Lungs: chest wall tender Abdomen: soft, non-tender Extremities: no C/C/E Critical Care - Subjective ROS Limited/Unobtainable: No Condition: critical FI02: 40 Vent Support Breath Rate: 16 Vent Support Mode: AC Vent Tidal Volume: 600 Sputum Amount: Small PEEP: 5.0 PIP: 24 Tube Feeding Amount: 50 I&O: Intake and Output 12/14/18 12/15/18 18:59 06:59 Intake Total 657.5 ml 720.0 ml Output Total 550 ml 250 ml Balance 107.5 ml 470.0 ml Intake Free Water 100 ml IV Total 192.5 ml 110.0 ml Tube Feeding 285 ml 510 ml Other 180 ml Output Urine Total 550 ml 250 ml # Bowel Movements 2 4 CXR: no change Labs: Laboratory Tests Test 12/15/18 03:54 White Blood Count 11.8 K/UL (4.8-10.8) H Red Blood Count 3.03 M/UL (4.70-6.10) L Hemoglobin 8.1 G/DL (14.2-18.0) L Hematocrit 25.3 % (42.0-52.0) L Mean Corpuscular Volume 84 FL (80-99) Mean Corpuscular Hemoglobin 26.7 PG (27.0-31.0) L Mean Corpuscular Hemoglobin Concent 31.9 G/DL (32.0-36.0) L Red Cell Distribution Width 15.0 % (11.6-14.8) H Platelet Count 372 K/UL (150-450) Mean Platelet Volume 6.8 FL (6.5-10.1) Neutrophils (%) (Auto) 67.3 % (45.0-75.0) Lymphocytes (%) (Auto) 16.4 % (20.0-45.0) L Monocytes (%) (Auto) 11.7 % (1.0-10.0) H Eosinophils (%) (Auto) 3.7 % (0.0-3.0) H Basophils (%) (Auto) 0.8 % (0.0-2.0) Sodium Level 132 MMOL/L (136-145) L Potassium Level 3.6 MMOL/L (3.5-5.1) Chloride Level 98 MMOL/L (98-107) Carbon Dioxide Level 23 MMOL/L (21-32) Anion Gap 11 mmol/L (5-15) Blood Urea Nitrogen 20 mg/dL (7-18) H Creatinine 1.3 MG/DL (0.55-1.30) Estimat Glomerular Filtration Rate 54.6 mL/min (>60) Glucose Level 133 MG/DL (74-106) H Calcium Level 9.0 MG/DL (8.5-10.1) Phosphorus Level 3.1 MG/DL (2.5-4.9) Magnesium Level 1.9 MG/DL (1.8-2.4) Total Bilirubin 0.2 MG/DL (0.2-1.0) Aspartate Amino Transf (AST/SGOT) 11 U/L (15-37) L Alanine Aminotransferase (ALT/SGPT) 14 U/L (12-78) Alkaline Phosphatase 87 U/L (46-116) Total Protein 7.6 G/DL (6.4-8.2) Albumin 2.4 G/DL (3.4-5.0) L Globulin 5.2 g/dL Albumin/Globulin Ratio 0.5 (1.0-2.7) L Huma Keating MD Dec 15, 2018 11:55
[2018-12-15 12:00] VITALS: BP 121/72
--- NOTE | 2018-12-15 15:53 | NUR ---
CASE MANAGEMENT: REVIEW SI: ANEMIA . [facility] . T 98.2 HR 79 RR 22 BP 121/72 SAT 100% MECH VENT FIO2 40 WBC 11.8 H/H 8.1/25.3 NA 132 IS: CARAFATE GT Q6HR ZOSYN IV Q8HR PROTONIX IV QD STEP DOWN UNIT STATUS DCP: PATIENT IS FROM [facility]
[2018-12-15 16:00] VITALS: BP 128/89
[2018-12-15] MEDS: Acetaminophen 650mg/20.3ml GT PRN (17:42)
--- NOTE | 2018-12-15 19:25 | NUR ---
NURSE NOTES: Received report from Deborah HARTLEY, pt. in bed obtunded, eyes open, non-verbal, no signs or symptoms of acute cardiac or respiratory distress noted, cardiac monitoring on, pt. appears to be resting comfortably, pt. is clean and dry, bed in lowest position and call light within easy reach, bed alarm on, side rails up x's3 and safety brakes engaged, pt. appears to be tolerating current vent settings well- AC 16, TV 600, Fio2 @35%, PEEP 5- NO DISTRESS NOTED at time of assessment, all needs attended to, Jevity 1.2 running at 60cc/hr- no residual noted- via G-tube, Condom cath intact and draining to gravity, PRASHANTH PICC intact and patent- TKO, side rails padded for seizure precautions- no seizure activity noted, safety measures continued, will continue to monitor pt. and with plan of care.
--- NOTE | 2018-12-15 19:25 | NUR ---
HAND-OFF: Report given to Eun Caceres RN.
[2018-12-15 20:00] VITALS: BP 148/81
[2018-12-15] MEDS: Dyna-Hex 2% Top Sol 2oz TOPIC SCH (20:19)
[2018-12-16] VITALS: BP 112/66
[2018-12-16 04:00] VITALS: BP 120/69
[2018-12-16 05:42] LABS: BASOPHILS % (AUTO) 0.9 % (0.0-2.0); EOSINOPHILS % (AUTO) 3.8 % (0.0-3.0); HEMATOCRIT 26.1 % (42.0-52.0); HEMOGLOBIN 8.3 G/DL (14.2-18.0); LYMPHOCYTES % (AUTO) 12.2 % (20.0-45.0); MEAN CORPUSCULAR VOLUME 84 FL (80-99); MONOCYTES % (AUTO) 10.8 % (1.0-10.0); NEUTROPHILS % (AUTO) 72.3 % (45.0-75.0); PLATELET COUNT 370 K/UL (150-450); RED CELL DISTRIBUTION WIDTH 15.1 % (11.6-14.8); WHITE BLOOD COUNT 12.7 K/UL (4.8-10.8)
[2018-12-16] MEDS: Sucralfate 1gm tab GT SCH ×4 (05:59→23:05)
[2018-12-16] MEDS: Piperacillin/Tazobactam 3.375 GM in D5W 110 ML IV SCH ×3 (06:00→21:24)
[2018-12-16 06:01] LABS: PHOSPHORUS 2.8 MG/DL (2.5-4.9)
[2018-12-16 06:03] LABS: ALANINE AMINOTRANSFERASE 15 U/L (12-78); ALBUMIN 2.4 G/DL (3.4-5.0); ALBUMIN/GLOBULIN RATIO 0.4 (1.0-2.7); ALKALINE PHOSPHATASE 87 U/L (46-116); ANION GAP 12 mmol/L (5-15); ASPARTATE AMINO TRANSFERASE 11 U/L (15-37); BILIRUBIN,TOTAL 0.2 MG/DL (0.2-1.0); BLOOD UREA NITROGEN 21 mg/dL (7-18); CALCIUM 8.9 MG/DL (8.5-10.1); CARBON DIOXIDE 23 MMOL/L (21-32); CHLORIDE 98 MMOL/L (98-107); CREATININE 1.4 MG/DL (0.55-1.30); POTASSIUM 3.5 MMOL/L (3.5-5.1); SODIUM 133 MMOL/L (136-145)
--- NOTE | 2018-12-16 07:04 | NUR ---
HAND-OFF: Report given to Deborah HARTLEY, pt. remains stable and no signs of distress noted.
--- NOTE | 2018-12-16 07:05 | NUR ---
NURSE NOTES: Received patient in bed. Vent dependent with FiO2 noted at 40%. No respiratory distress noted. With ongoing gastrostomy tube feeding as tolerated. Condom cath inplace. Contact isolation observed. Will continue plan of care.
--- NOTE | 2018-12-16 07:38 | NUR ---
RESPIRATORY NOTE: received pt on current vent orders, trached with portex 8, placed midline and secured via trach tie/guard. no redness or sores visible around stoma and neck area. vent is plugged into the red outlet with alarms set and audible. ambu bag at bedside and will cont to monitor.
[2018-12-16 08:00] VITALS: BP 142/73
--- NOTE | 2018-12-16 08:42 | Infectious Diseases Prog Note ---
Assessment/Plan Assessment/Plan Abx: IV Vancomycin 12/08- Cefepime 12/08- Levaquinx 1 12/08 Assessment: Leukocytosis; imrpoving- ?UTI -u/a wbc 5-10, nit n eg, leuk +3; ucx NTD -CXR: No acute process. Right basilar atelectasis -Sp cx 12/09/18 E.coli (ESBL), P.a. 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 diff Dysphagia s/p G-tube Anemia. CVA/TIA w/ hemiplegia functional quadriplegia chronic encephalopathy CAD CHF Dm2 GIB s/p multiple EGDs in the past hx of severe esophagitis schizoaffective disease residential resident multiple admissions VRE colonization Plan: - Continue Zosyn #5 for sputum organisms - Start inhaled colistin for MDR P.a. - Start Fluconazole for Yeast it the urine Additional P.a. Sensi pending. Im hesitant to start Amikacin given increased cr but if leukocytosis continues to increase it may be required. - 12/12 S/P Vancomycin and Cefepime #5 -12/08 SP Levaquin x1 -11/06 SP Amikacin #6 -11/01 SP Meropenem #4 -10/29 SP IV Vanco #2, Cefepime #2 and Tigecycline #1 -10/28 SP LEavquin x1 -10/09 SP Ertapenem #5 - 10/04 SP Meropenem #2 -10/03/ SP IV Vancomycin #2 and Cefepime #2 -08/09/ SP Bactrim #7 -11/24 SP Vancomycin and Cefepime #3 -08/01/18 SP Ceftriaxone x1 -f.u cx (Bl, SP, urine) -Monitor CBC/CMP, temperatures -Peg/trach care -aspiration precautions Will continue to follow along with you. Subjective Allergies: Coded Allergies: NO KNOWN DRUG ALLERGIES (Verified Allergy, Unknown, 09/11/16) Subjective Afebrile Mild Leukocytosis continues Objective Vital Signs Last 24 Hour Vital Signs Date Time Temp Pulse Resp B/P (MAP) Pulse Ox O2 Delivery O2 Flow Rate FiO2 12/16/18 08:00 Mechanical Ventilator 12/16/18 08:00 40 12/16/18 07:36 86 16 40 12/16/18 05:28 81 16 40 12/16/18 04:00 40 12/16/18 04:00 85 12/16/18 04:00 Mechanical Ventilator 12/16/18 04:00 98.2 78 16 120/69 (86) 100 12/16/18 04:00 Mechanical Ventilator 12/16/18 03:30 80 18 40 12/16/18 01:18 82 19 40 12/16/18 00:00 40 12/16/18 00:00 75 12/16/18 00:00 Mechanical Ventilator 12/16/18 00:00 99.3 71 22 112/66 (81) 100 12/15/18 23:25 74 20 40 12/15/18 21:30 70 18 40 12/15/18 20:00 40 12/15/18 20:00 Mechanical Ventilator 12/15/18 20:00 78 12/15/18 20:00 99.3 87 23 148/81 (103) 100 12/15/18 19:30 71 17 40 12/15/18 17:18 88 20 40 12/15/18 16:00 100.2 87 22 128/89 (102) 100 12/15/18 16:00 Mechanical Ventilator 12/15/18 15:31 84 12/15/18 15:19 90 22 40 12/15/18 13:20 80 16 40 12/15/18 12:00 82 12/15/18 12:00 Mechanical Ventilator 12/15/18 12:00 98.2 79 20 121/72 (88) 100 12/15/18 12:00 40 12/15/18 11:04 72 20 40 12/15/18 09:01 75 16 40 Height (Feet): 5 Height (Inches): 10.00 Weight (Pounds): 132 Objective Gen: NAD, Satting well on vent 40% O2 HEENT: NCAT, MMM, Trached on vent Lungs: Coarse B/L Heart: RRR, S1, S2 Abdomen: soft, non-tender Laboratory Tests Test 12/16/18 04:00 White Blood Count 12.7 K/UL (4.8-10.8) H Red Blood Count 3.10 M/UL (4.70-6.10) L Hemoglobin 8.3 G/DL (14.2-18.0) L Hematocrit 26.1 % (42.0-52.0) L Mean Corpuscular Volume 84 FL (80-99) Mean Corpuscular Hemoglobin 26.8 PG (27.0-31.0) L Mean Corpuscular Hemoglobin Concent 31.9 G/DL (32.0-36.0) L Red Cell Distribution Width 15.1 % (11.6-14.8) H Platelet Count 370 K/UL (150-450) Mean Platelet Volume 7.0 FL (6.5-10.1) Neutrophils (%) (Auto) 72.3 % (45.0-75.0) Lymphocytes (%) (Auto) 12.2 % (20.0-45.0) L Monocytes (%) (Auto) 10.8 % (1.0-10.0) H Eosinophils (%) (Auto) 3.8 % (0.0-3.0) H Basophils (%) (Auto) 0.9 % (0.0-2.0) Sodium Level 133 MMOL/L (136-145) L Potassium Level 3.5 MMOL/L (3.5-5.1) Chloride Level 98 MMOL/L (98-107) Carbon Dioxide Level 23 MMOL/L (21-32) Anion Gap 12 mmol/L (5-15) Blood Urea Nitrogen 21 mg/dL (7-18) H Creatinine 1.4 MG/DL (0.55-1.30) H Estimat Glomerular Filtration Rate 50.1 mL/min (>60) Glucose Level 167 MG/DL (74-106) H Calcium Level 8.9 MG/DL (8.5-10.1) Phosphorus Level 2.8 MG/DL (2.5-4.9) Magnesium Level 1.9 MG/DL (1.8-2.4) Total Bilirubin 0.2 MG/DL (0.2-1.0) Aspartate Amino Transf (AST/SGOT) 11 U/L (15-37) L Alanine Aminotransferase (ALT/SGPT) 15 U/L (12-78) Alkaline Phosphatase 87 U/L (46-116) Total Protein 7.8 G/DL (6.4-8.2) Albumin 2.4 G/DL (3.4-5.0) L Globulin 5.4 g/dL Albumin/Globulin Ratio 0.4 (1.0-2.7) L Current Medications Medications (Trade) Dose Ordered Sig/Wanda Route PRN Reason Start Time Stop Time Status Last Admin Dose Admin Acetaminophen (Tylenol) 650 mg Q4H PRN GT Mild Pain/Temp > 100.5 12/15/18 10:45 01/14/19 10:44 12/15/18 17:42 Chlorhexidine Gluconate (Jasmin-Hex 2%) 1 applic DAILY@2000 TOPIC 12/11/18 20:00 01/10/19 19:59 12/15/18 20:19 Dextrose (Dextrose 50%) 25 ml Q30M PRN IV Hypoglycemia 12/08/18 16:15 01/07/19 16:14 Dextrose (Dextrose 50%) 50 ml Q30M PRN IV hypoglycemia 12/08/18 16:15 01/07/19 16:14 Heparin Sodium (Porcine) (Heparin 5000 units/ml) 5,000 units EVERY 12 HOURS SUBQ 12/08/18 21:00 01/07/19 20:59 12/15/18 20:21 Levothyroxine Sodium (Synthroid) 75 mcg Q24H GT 12/09/18 06:30 01/08/19 06:29 12/16/18 05:59 Ondansetron HCl (Zofran) 4 mg Q6H PRN IVP Nausea & Vomiting 12/08/18 16:00 01/07/19 15:59 Pantoprazole (Protonix) 40 mg DAILY IV 12/09/18 09:00 01/08/19 08:59 12/15/18 09:16 Piperacillin Sod/ Tazobactam Sod 3.375 gm/Dextrose 110 ml @ 27.5 mls/hr EVERY 8 HOURS IV 12/12/18 14:00 12/17/18 23:59 12/16/18 06:00 Polyethylene Glycol (Miralax) 17 gm DAILYPRN PRN GT Constipation 12/15/18 10:45 01/07/19 15:59 Sucralfate (Carafate) 1 gm EVERY 6 HOURS GT 12/15/18 18:00 01/07/19 17:59 12/16/18 05:59 John Fiore MD Dec 16, 2018 08:42
[2018-12-16] MEDS: Fluconazole 100mg tab ORAL SCH (09:09)
[2018-12-16] MEDS: Pantoprazole Inj IV SCH (09:09)
[2018-12-16] MEDS: Heparin 5000 units/ml inj SUBQ SCH ×2 (09:10→20:43)
--- NOTE | 2018-12-16 10:04 | NUR ---
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 ASPIRATION PNA VS: BP 142/73, P 87, T 98.4, RR 16, SpO2 100 on VENT AC 16, TV 600, PEEP 5.0, FiO2 40 WBC 12.7, RBC 3.10, Hgb 8.3, Hct 26.1, Na 133, BUN 21, CR 1.4 IS:HEPARIN SUBQ SYNTHROID 75mcg GT PROTONIX 40mg IV ZOSYN 110ml IV SUCRALFATE 1gm GT DIFLUCAN 200mg GT SDU STATUS
--- NOTE | 2018-12-16 10:05 | Pulmonolgy Critical Care Note ---
Critical Care - Asmt/Plan Problems: (1) Respiratory failure, [id number] (2) Aspiration pneumonia (3) Severe sepsis (4) Anemia (5) Psychosis (6) Hypothyroidism (7) Severe protein-calorie malnutrition (8) Feeding by G-tube Respiratory: monitor respiratory rate, adjust FIO2 Cardiac: continue to monitor HR/BP Renal: F/U I&O, check electrolytes Infectious Disease: check cultures, continue antibiotics, other - wbc still high, still low grade temperature Gastrointestinal: continue feedings/current rate Endocrine: monitor blood sugar Hematologic: monitor H/H, transfuse if hgb<8.5 Neurologic: PRN Ativan, keep patient comfortable Affect: PRN ativan Prophylaxis: Protonix, Heparin Notes 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, 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 with: nurses, consultants, medical case workerhealthcare project manager - Objective Last 24 Hour Vital Signs Date Time Temp Pulse Resp B/P (MAP) Pulse Ox O2 Delivery O2 Flow Rate FiO2 12/16/18 08:56 82 16 40 12/16/18 08:00 Mechanical Ventilator 12/16/18 08:00 98.4 87 16 142/73 (96) 100 12/16/18 08:00 40 12/16/18 07:36 86 16 40 12/16/18 05:28 81 16 40 12/16/18 04:00 40 12/16/18 04:00 85 12/16/18 04:00 Mechanical Ventilator 12/16/18 04:00 98.2 78 16 120/69 (86) 100 12/16/18 04:00 Mechanical Ventilator 12/16/18 03:30 80 18 40 12/16/18 01:18 82 19 40 12/16/18 00:00 40 12/16/18 00:00 75 12/16/18 00:00 Mechanical Ventilator 12/16/18 00:00 99.3 71 22 112/66 (81) 100 12/15/18 23:25 74 20 40 12/15/18 21:30 70 18 40 12/15/18 20:00 40 12/15/18 20:00 Mechanical Ventilator 12/15/18 20:00 78 12/15/18 20:00 99.3 87 23 148/81 (103) 100 12/15/18 19:30 71 17 40 12/15/18 17:18 88 20 40 12/15/18 16:00 100.2 87 22 128/89 (102) 100 12/15/18 16:00 Mechanical Ventilator 12/15/18 15:31 84 12/15/18 15:19 90 22 40 12/15/18 13:20 80 16 40 12/15/18 12:00 82 12/15/18 12:00 Mechanical Ventilator 12/15/18 12:00 98.2 79 20 121/72 (88) 100 12/15/18 12:00 40 12/15/18 11:04 72 20 40 Status: awake Condition: critical HEENT: atraumatic Lungs: rales, rhonchi Heart: HR/BP stable Abdomen: soft, non-tender Extremities: no C/C/E Decubiti: location Critical Care - Subjective ROS Limited/Unobtainable: Yes Condition: critical EKG Rhythm: Sinus Rhythm FI02: 40 Vent Support Breath Rate: 16 Vent Support Mode: AC Vent Tidal Volume: 600 Sputum Amount: Small PEEP: 5.0 PIP: 25 Tube Feeding Amount: 60 I&O: Intake and Output 12/15/18 12/16/18 19:00 07:00 Intake Total 890.0 ml 870.0 ml Output Total 260 ml Balance 890.0 ml 610.0 ml Intake Free Water 100 ml IV Total 220.0 ml 110.0 ml Tube Feeding 570 ml 660 ml Other 100 ml Output Urine Total 260 ml # Bowel Movements 1 CXR: pending Labs: Laboratory Tests Test 12/16/18 04:00 White Blood Count 12.7 K/UL (4.8-10.8) H Red Blood Count 3.10 M/UL (4.70-6.10) L Hemoglobin 8.3 G/DL (14.2-18.0) L Hematocrit 26.1 % (42.0-52.0) L Mean Corpuscular Volume 84 FL (80-99) Mean Corpuscular Hemoglobin 26.8 PG (27.0-31.0) L Mean Corpuscular Hemoglobin Concent 31.9 G/DL (32.0-36.0) L Red Cell Distribution Width 15.1 % (11.6-14.8) H Platelet Count 370 K/UL (150-450) Mean Platelet Volume 7.0 FL (6.5-10.1) Neutrophils (%) (Auto) 72.3 % (45.0-75.0) Lymphocytes (%) (Auto) 12.2 % (20.0-45.0) L Monocytes (%) (Auto) 10.8 % (1.0-10.0) H Eosinophils (%) (Auto) 3.8 % (0.0-3.0) H Basophils (%) (Auto) 0.9 % (0.0-2.0) Sodium Level 133 MMOL/L (136-145) L Potassium Level 3.5 MMOL/L (3.5-5.1) Chloride Level 98 MMOL/L (98-107) Carbon Dioxide Level 23 MMOL/L (21-32) Anion Gap 12 mmol/L (5-15) Blood Urea Nitrogen 21 mg/dL (7-18) H Creatinine 1.4 MG/DL (0.55-1.30) H Estimat Glomerular Filtration Rate 50.1 mL/min (>60) Glucose Level 167 MG/DL (74-106) H Calcium Level 8.9 MG/DL (8.5-10.1) Phosphorus Level 2.8 MG/DL (2.5-4.9) Magnesium Level 1.9 MG/DL (1.8-2.4) Total Bilirubin 0.2 MG/DL (0.2-1.0) Aspartate Amino Transf (AST/SGOT) 11 U/L (15-37) L Alanine Aminotransferase (ALT/SGPT) 15 U/L (12-78) Alkaline Phosphatase 87 U/L (46-116) Total Protein 7.8 G/DL (6.4-8.2) Albumin 2.4 G/DL (3.4-5.0) L Globulin 5.4 g/dL Albumin/Globulin Ratio 0.4 (1.0-2.7) L Huma Keating MD Dec 16, 2018 10:04
--- NOTE | 2018-12-16 11:13 | NUR ---
RD ASSESSMENT & RECOMMENDATIONS SEE CARE ACTIVITY FOR COMPLETE ASSESSMENT DAILY ESTIMATED NEEDS: Needs based on Critical care, underweight, wound TF CREAM DUMPER 56.8kg 30-35 kcals/kg 5166-3318 total kcals 1.25-2 g protein/kg 71-114 g total protein 25-30 mL/kg 3494-6185 total fluid mLs NUTRITION DIAGNOSIS: Swallowing difficulty R/T respiratory status as evidenced by pt vent dep via trach, PEG dep. CURRENT TF:Osmolite 1.5 @ 60ml/hr x 22 hrs ENTERAL NUTRITION RECOMMENDATIONS: Osmolite 1.5 @ 60ml/hr x 22 hrs to provide 1320ml, 1980kcal, 83g prot, 1006ml free water * Continue current TF * HOLD TF 1h before and 1 after Synthroid administration. * Flush per MD/ HOB over 30 degrees ADDITIONAL RECOMMENDATIONS: * Calibrated bedscale weight for accurate CBW, weekly wt monitoring * Monitor need for TF change and/or accucheck w/ SSI - h/o DM + hyperglycemia * Monitor lytes w/ TF, replete as needed * Wound care: add JOYCELYN UNFLAVORED BID via GT
[2018-12-16] MEDS: Colistin for inhalation INH SCH ×2 (11:52→22:49)
[2018-12-16 12:00] VITALS: BP 128/92
--- NOTE | 2018-12-16 12:57 | General Progress Note ---
Assessment/Plan Problem List: (1) Severe sepsis ICD Codes: A41.9 - Sepsis, unspecified organism; R65.20 - Severe sepsis without septic shock SNOMED: 22355496 (2) Severe protein-calorie malnutrition ICD Codes: E43 - Unspecified severe protein-calorie malnutrition SNOMED: 300737356 (3) Feeding by G-tube ICD Codes: Z93.1 - Gastrostomy status SNOMED: 898529013, 842290987 (4) Respiratory failure, mowwk-kz-ylakqax ICD Codes: J96.20 - Respiratory failure, jfzzj-je-zasacne SNOMED: 60341587 (5) Anemia ICD Codes: D64.9 - Anemia, unspecified SNOMED: 088582686 (6) Aspiration pneumonia ICD Codes: J69.0 - Pneumonitis due to inhalation of food and vomit SNOMED: 973571123 (7) Acute renal failure ICD Codes: N17.9 - Acute kidney failure, unspecified SNOMED: 22962170 Status: unchanged Assessment/Plan vent abx cbc bmp am Subjective Constitutional: Reports: weakness Allergies: Coded Allergies: NO KNOWN DRUG ALLERGIES (Verified Allergy, Unknown, 09/11/16) All Systems: reviewed and negative except above Subjective trach vent altered Objective Last 24 Hour Vital Signs Date Time Temp Pulse Resp B/P (MAP) Pulse Ox O2 Delivery O2 Flow Rate FiO2 12/16/18 12:00 Mechanical Ventilator 12/16/18 12:00 40 12/16/18 12:00 98.4 98 20 128/92 (104) 100 12/16/18 11:58 97 24 100 Mechanical Ventilator 40 12/16/18 11:53 94 24 100 Mechanical Ventilator 40 12/16/18 11:52 7 24 40 12/16/18 11:49 95 12/16/18 08:56 82 16 40 12/16/18 08:00 Mechanical Ventilator 12/16/18 08:00 76 12/16/18 08:00 98.4 87 16 142/73 (96) 100 12/16/18 08:00 40 12/16/18 07:36 86 16 40 12/16/18 05:28 81 16 40 12/16/18 04:00 40 12/16/18 04:00 85 12/16/18 04:00 Mechanical Ventilator 12/16/18 04:00 98.2 78 16 120/69 (86) 100 12/16/18 04:00 Mechanical Ventilator 12/16/18 03:30 80 18 40 12/16/18 01:18 82 19 40 12/16/18 00:00 40 12/16/18 00:00 75 12/16/18 00:00 Mechanical Ventilator 12/16/18 00:00 99.3 71 22 112/66 (81) 100 12/15/18 23:25 74 20 40 12/15/18 21:30 70 18 40 12/15/18 20:00 40 12/15/18 20:00 Mechanical Ventilator 12/15/18 20:00 78 12/15/18 20:00 99.3 87 23 148/81 (103) 100 12/15/18 19:30 71 17 40 12/15/18 17:18 88 20 40 12/15/18 16:00 100.2 87 22 128/89 (102) 100 12/15/18 16:00 Mechanical Ventilator 12/15/18 15:31 84 12/15/18 15:19 90 22 40 12/15/18 13:20 80 16 40 Intake and Output 12/15/18 12/16/18 19:00 07:00 Intake Total 890.0 ml 897.5 ml Output Total 260 ml Balance 890.0 ml 637.5 ml Intake Free Water 100 ml IV Total 220.0 ml 137.5 ml Tube Feeding 570 ml 660 ml Other 100 ml Output Urine Total 260 ml # Bowel Movements 1 Laboratory Tests 12/16/18 04:00: White Blood Count 12.7H, Red Blood Count 3.10L, Hemoglobin 8.3L, Hematocrit 26.1L, Mean Corpuscular Volume 84, Mean Corpuscular Hemoglobin 26.8L, Mean Corpuscular Hemoglobin Concent 31.9L, Red Cell Distribution Width 15.1H, Platelet Count 370, Mean Platelet Volume 7.0, Neutrophils (%) (Auto) 72.3, Lymphocytes (%) (Auto) 12.2L, Monocytes (%) (Auto) 10.8H, Eosinophils (%) (Auto ) 3.8H, Basophils (%) (Auto) 0.9, Sodium Level 133L, Potassium Level 3.5, Chloride Level 98, Carbon Dioxide Level 23, Anion Gap 12, Blood Urea Nitrogen 21H, Creatinine 1.4H, Estimat Glomerular Filtration Rate 50.1, Glucose Level 167H, Calcium Level 8.9, Phosphorus Level 2.8, Magnesium Level 1.9, Total Bilirubin 0.2, Aspartate Amino Transf (AST/SGOT) 11L, Alanine Aminotransferase ( ALT/SGPT) 15, Alkaline Phosphatase 87, Total Protein 7.8, Albumin 2.4L, Globulin 5.4, Albumin/Globulin Ratio 0.4L Height (Feet): 5 Height (Inches): 10.00 Weight (Pounds): 132 General Appearance: lethargic EENT: normal ENT inspection Neck: normal alignment Cardiovascular: normal peripheral pulses, normal rate, regular rhythm Respiratory/Chest: chest wall non-tender, lungs clear, normal breath sounds Abdomen: normal bowel sounds, non tender, soft Extremities: normal inspection Edema: no edema noted Arm (L), no edema noted Arm (R), no edema noted Leg (L), no edema noted Leg (R), no edema noted Pedal (L), no edema noted Pedal (R), no edema noted Generalized Neurologic: motor weakness Skin: normal pigmentation, warm/dry Gato Viveros DO Dec 16, 2018 12:57
--- NOTE | 2018-12-16 15:18 | NUR ---
*-*INSURANCE *-* UPDATED CLINIC[facility] P- [phone] F- [phone]...REVIEW/CLINICAL
[2018-12-16 16:00] VITALS: BP 145/77
--- NOTE | 2018-12-16 17:57 | Diagnostic Imaging Report ---
Indication: Dyspnea Technique: One view of the chest Comparison: 12/11/2018 Findings: Lungs and pleural spaces are clear. Previously demonstrated right basilar atelectasis has cleared. Tracheostomy, right arm PICC remain. Impression: No acute process
[2018-12-16] MEDS: Acetaminophen 650mg/20.3ml GT PRN (18:24)
--- NOTE | 2018-12-16 19:05 | NUR ---
NURSE NOTES: Pt report received from Deborah HARTLEY. Pt Scallop Dredger is on with no cardiac or respiratory distress noted. Pt is Trach to vent with vent settings of Portex 8, AC16, TV 600, Fio2 of 40%, PEEP of 5. Pt also has a G-tube that is running Osmolite 1.2 at 60cc/hr. G-tube is patent and flushing. Pt also has a Condom Cath Medium size that is intact and draining to gravity. Pt presents with a PICC line on Right Upper Arm with no signs or symptoms of abnormalities and is able to flush. All safety precautions are in affect, such as bed is in lowest position, call light is within easy reach, bed alarm is active, side rails are up and padded for seizure precautions. Will continue plan of care.
--- NOTE | 2018-12-16 19:15 | NUR ---
HAND-OFF: Report given to Ca Guerrero RN. Remains vent dependent. Tolerated GTF.
--- NOTE | 2018-12-16 19:24 | NUR ---
RESPIRATORY NOTE: Received pt. on 840 vent. Vent settings are: A/C rate of 16, Vt 600, FI02 40%, PEEP +5. No respiratory distress noted, pt. sP02 @ 100%. Ambu bag @ BS. Vent plugged on red outlet. Will continue to monitor pt.
[2018-12-16 20:00] VITALS: BP 124/68
[2018-12-16] MEDS: Dyna-Hex 2% Top Sol 2oz TOPIC SCH (20:42)
[2018-12-17] VITALS: BP 128/63
[2018-12-17 04:00] VITALS: BP 131/59
[2018-12-17 05:29] LABS: HEMATOCRIT 24.8 % (42.0-52.0); HEMOGLOBIN 7.9 G/DL (14.2-18.0); MEAN CORPUSCULAR VOLUME 84 FL (80-99); PLATELET COUNT 334 K/UL (150-450); RED BLOOD COUNT 2.94 M/UL (4.70-6.10); RED CELL DISTRIBUTION WIDTH 14.9 % (11.6-14.8); WHITE BLOOD COUNT 12.5 K/UL (4.8-10.8)
[2018-12-17] MEDS: Sucralfate 1gm tab GT SCH ×3 (05:42→17:29)
[2018-12-17] MEDS: Piperacillin/Tazobactam 3.375 GM in D5W 110 ML IV SCH ×3 (05:42→21:33)
[2018-12-17 06:07] LABS: ALANINE AMINOTRANSFERASE 12 U/L (12-78); ALBUMIN 2.3 G/DL (3.4-5.0); ALBUMIN/GLOBULIN RATIO 0.4 (1.0-2.7); ALKALINE PHOSPHATASE 86 U/L (46-116); ANION GAP 11 mmol/L (5-15); ASPARTATE AMINO TRANSFERASE 10 U/L (15-37); BILIRUBIN,TOTAL 0.2 MG/DL (0.2-1.0); BLOOD UREA NITROGEN 21 mg/dL (7-18); CALCIUM 8.8 MG/DL (8.5-10.1); CARBON DIOXIDE 23 MMOL/L (21-32); CHLORIDE 100 MMOL/L (98-107); CREATININE 1.3 MG/DL (0.55-1.30); POTASSIUM 3.4 MMOL/L (3.5-5.1); SODIUM 134 MMOL/L (136-145)
--- NOTE | 2018-12-17 07:10 | NUR ---
HAND-OFF: Report given to Jeannie HARTLEY.
--- NOTE | 2018-12-17 07:51 | Infectious Diseases Prog Note ---
Assessment/Plan Assessment/Plan Abx: IV Vancomycin 12/08- Cefepime 12/08- Levaquinx 1 12/08 Assessment: Leukocytosis; imrpoving- ?UTI -u/a wbc 5-10, nit n eg, leuk +3; ucx NTD -CXR: No acute process. Right basilar atelectasis -Sp cx 12/09/18 E.coli (ESBL), P.a. 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 diff Dysphagia s/p G-tube Anemia. CVA/TIA w/ hemiplegia functional quadriplegia chronic encephalopathy CAD CHF Dm2 GIB s/p multiple EGDs in the past hx of severe esophagitis schizoaffective disease intermediate resident multiple admissions VRE colonization Plan: - Continue Zosyn #5, inhaled colistin #2 for MDR P.a.for sputum organism - Continue Fluconazole #2 for Yeast it the urine Additional P.a. Sensi pending. Im hesitant to start Amikacin given increased cr but if leukocytosis continues to increase it may be required. - 12/12 S/P Vancomycin and Cefepime #5 -12/08 SP Levaquin x1 -11/06 SP Amikacin #6 -11/01 SP Meropenem #4 -10/29 SP IV Vanco #2, Cefepime #2 and Tigecycline #1 -10/28 SP LEavquin x1 -10/09 SP Ertapenem #5 - 10/04 SP Meropenem #2 -10/03/18 SP IV Vancomycin #2 and Cefepime #2 -08/09/ SP Bactrim #7 -08/03 SP Vancomycin and Cefepime #3 -08/01/18 SP Ceftriaxone x1 -Monitor CBC/CMP, temperatures -Peg/trach care -aspiration precautions Will continue to follow along with you. Subjective Allergies: Coded Allergies: NO KNOWN DRUG ALLERGIES (Verified Allergy, Unknown, 09/11/16) Subjective Afebrile Mild Leukocytosis continues Sattign well on vent Objective Vital Signs Last 24 Hour Vital Signs Date Time Temp Pulse Resp B/P (MAP) Pulse Ox O2 Delivery O2 Flow Rate FiO2 12/17/18 06:18 99 17 40 12/17/18 04:00 78 12/17/18 04:00 97.1 72 20 131/59 (83) 97 12/17/18 04:00 Mechanical Ventilator 12/17/18 04:00 40 12/17/18 03:21 89 17 40 12/17/18 01:32 88 19 40 12/17/18 00:00 73 12/17/18 00:00 Mechanical Ventilator 12/17/18 00:00 97.2 70 20 128/63 (84) 98 12/17/18 00:00 40 12/16/18 23:01 97 23 75 Mechanical Ventilator 40 12/16/18 22:49 68 16 100 Mechanical Ventilator 40 12/16/18 22:44 84 16 40 12/16/18 21:00 84 17 40 12/16/18 20:00 Mechanical Ventilator 12/16/18 20:00 77 12/16/18 20:00 98.2 79 16 124/68 (86) 100 12/16/18 20:00 40 12/16/18 19:23 78 16 40 12/16/18 17:18 86 17 40 12/16/18 16:00 40 12/16/18 16:00 100.0 87 16 145/77 (99) 99 12/16/18 16:00 Mechanical Ventilator 12/16/18 15:28 87 12/16/18 15:13 88 17 40 12/16/18 13:08 95 20 40 12/16/18 12:00 Mechanical Ventilator 12/16/18 12:00 40 12/16/18 12:00 98.4 98 20 128/92 (104) 100 12/16/18 11:58 97 24 100 Mechanical Ventilator 40 12/16/18 11:53 94 24 100 Mechanical Ventilator 40 12/16/18 11:52 7 24 40 12/16/18 11:49 95 12/16/18 08:56 82 16 40 12/16/18 08:00 Mechanical Ventilator 12/16/18 08:00 76 12/16/18 08:00 98.4 87 16 142/73 (96) 100 12/16/18 08:00 40 Height (Feet): 5 Height (Inches): 10.00 Weight (Pounds): 132 Objective Gen: NAD HEENT: NCAT, MMM, Trached on vent Lungs: Coarse B/L Heart: RRR, S1, S2 Abdomen: soft, non-tender Laboratory Tests Test 12/17/18 03:43 White Blood Count 12.5 K/UL (4.8-10.8) H Red Blood Count 2.94 M/UL (4.70-6.10) L Hemoglobin 7.9 G/DL (14.2-18.0) L Hematocrit 24.8 % (42.0-52.0) L Mean Corpuscular Volume 84 FL (80-99) Mean Corpuscular Hemoglobin 26.9 PG (27.0-31.0) L Mean Corpuscular Hemoglobin Concent 31.9 G/DL (32.0-36.0) L Red Cell Distribution Width 14.9 % (11.6-14.8) H Platelet Count 334 K/UL (150-450) Mean Platelet Volume 6.7 FL (6.5-10.1) Neutrophils (%) (Auto) % (45.0-75.0) Lymphocytes (%) (Auto) % (20.0-45.0) Monocytes (%) (Auto) % (1.0-10.0) Eosinophils (%) (Auto) % (0.0-3.0) Basophils (%) (Auto) % (0.0-2.0) Sodium Level 134 MMOL/L (136-145) L Potassium Level 3.4 MMOL/L (3.5-5.1) L Chloride Level 100 MMOL/L (98-107) Carbon Dioxide Level 23 MMOL/L (21-32) Anion Gap 11 mmol/L (5-15) Blood Urea Nitrogen 21 mg/dL (7-18) H Creatinine 1.3 MG/DL (0.55-1.30) Estimat Glomerular Filtration Rate 54.6 mL/min (>60) Glucose Level 139 MG/DL (74-106) H Calcium Level 8.8 MG/DL (8.5-10.1) Total Bilirubin 0.2 MG/DL (0.2-1.0) Aspartate Amino Transf (AST/SGOT) 10 U/L (15-37) L Alanine Aminotransferase (ALT/SGPT) 12 U/L (12-78) Alkaline Phosphatase 86 U/L (46-116) Pro-B-Type Natriuretic Peptide 651 pg/mL (0-125) H Total Protein 7.5 G/DL (6.4-8.2) Albumin 2.3 G/DL (3.4-5.0) L Globulin 5.2 g/dL Albumin/Globulin Ratio 0.4 (1.0-2.7) L Current Medications Medications (Trade) Dose Ordered Sig/Wanda Route PRN Reason Start Time Stop Time Status Last Admin Dose Admin Acetaminophen (Tylenol) 650 mg Q4H PRN GT Mild Pain/Temp > 100.5 12/15/18 10:45 01/14/19 10:44 12/16/18 18:24 Chlorhexidine Gluconate (Jasmin-Hex 2%) 1 applic DAILY@1999 TOPIC 12/11/18 20:00 01/10/19 19:59 12/16/18 20:42 Colistimethate Sodium (Colistin *inhalation use only*) 150 mg Q12HR@10,22 INH 12/16/18 10:00 12/23/18 09:59 12/16/18 22:49 Dextrose (Dextrose 50%) 25 ml Q30M PRN IV Hypoglycemia 12/08/18 16:15 01/07/19 16:14 Dextrose (Dextrose 50%) 50 ml Q30M PRN IV hypoglycemia 12/08/18 16:15 01/07/19 16:14 Fluconazole (Diflucan) 200 mg DAILY ORAL 12/16/18 09:00 12/23/18 08:59 12/16/18 09:09 Heparin Sodium (Porcine) (Heparin 5000 units/ml) 5,000 units EVERY 12 HOURS SUBQ 12/08/18 21:00 01/07/19 20:59 12/16/18 20:43 Levothyroxine Sodium (Synthroid) 75 mcg Q24H GT 12/09/18 06:30 01/08/19 06:29 12/17/18 05:42 Ondansetron HCl (Zofran) 4 mg Q6H PRN IVP Nausea & Vomiting 12/08/18 16:00 01/07/19 15:59 Pantoprazole (Protonix) 40 mg DAILY IV 12/09/18 09:00 01/08/19 08:59 12/16/18 09:09 Piperacillin Sod/ Tazobactam Sod 3.375 gm/Dextrose 110 ml @ 27.5 mls/hr EVERY 8 HOURS IV 12/12/18 14:00 12/21/18 13:59 12/17/18 05:42 Polyethylene Glycol (Miralax) 17 gm DAILYPRN PRN GT Constipation 12/15/18 10:45 01/07/19 15:59 Sucralfate (Carafate) 1 gm EVERY 6 HOURS GT 12/15/18 18:00 01/07/19 17:59 12/17/18 05:42 John Fiore MD Dec 17, 2018 07:51
[2018-12-17 08:00] VITALS: BP 130/71
--- NOTE | 2018-12-17 08:00 | NUR ---
NURSE NOTES: received pt in the bed, vent dependent, vital signs stable, no co pain, no SOB, skin warm and dry to touch, redness on both feet, condom catheter with yellow urine, tolerate GT feeding well, PICC line on RT upper arm, dressing dry and intact, bed in low position, HOB elevated.
--- NOTE | 2018-12-17 08:05 | NUR ---
RESPIRATORY NOTE: pt is ventdependent with portex 8, secured via trach tie/guard and placed midline. no redness or sore around stoma/neck area. vent orders is as followed with no resp distress. alarms are on and audible with ambu bag at bedside. vent is plugged into the red outlet and will cont to monitor
[2018-12-17] MEDS: Fluconazole 100mg tab ORAL SCH (09:16)
[2018-12-17] MEDS: Pantoprazole Inj IV SCH (09:16)
[2018-12-17] MEDS: Heparin 5000 units/ml inj SUBQ SCH ×2 (09:17→20:22)
[2018-12-17] MEDS: Colistin for inhalation INH SCH ×2 (09:23→22:41)
--- NOTE | 2018-12-17 09:46 | Pulmonolgy Critical Care Note ---
Critical Care - Asmt/Plan Problems: (1) Respiratory failure, [id number] (2) Aspiration pneumonia (3) Severe sepsis (4) Anemia (5) Psychosis (6) Hypothyroidism (7) Severe protein-calorie malnutrition (8) Feeding by G-tube Respiratory: monitor respiratory rate, adjust FIO2, CXR Cardiac: continue to monitor HR/BP Renal: F/U I&O, keep IV fluid, other - K supplelent Infectious Disease: check cultures, continue antibiotics, other - still leukocytosis Gastrointestinal: continue feedings/current rate Endocrine: monitor blood sugar Hematologic: monitor H/H, other - prbc when less than 7 Neurologic: PRN Ativan, PRN Morphine, keep patient comfortable Affect: PRN ativan Time Spent (Minutes): 40 Notes 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, 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 with: consultants, 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 - Objective Last 24 Hour Vital Signs Date Time Temp Pulse Resp B/P (MAP) Pulse Ox O2 Delivery O2 Flow Rate FiO2 12/17/18 09:23 98 20 100 Mechanical Ventilator 40 12/17/18 09:08 97 17 40 12/17/18 08:02 94 18 40 12/17/18 08:00 99.5 96 18 130/71 (90) 99 12/17/18 08:00 40 12/17/18 08:00 92 12/17/18 08:00 Mechanical Ventilator 12/17/18 06:18 99 17 40 12/17/18 04:00 78 12/17/18 04:00 97.1 72 20 131/59 (83) 97 12/17/18 04:00 Mechanical Ventilator 12/17/18 04:00 40 12/17/18 03:21 89 17 40 12/17/18 01:32 88 19 40 12/17/18 00:00 73 12/17/18 00:00 Mechanical Ventilator 12/17/18 00:00 97.2 70 20 128/63 (84) 98 12/17/18 00:00 40 12/16/18 23:01 97 23 75 Mechanical Ventilator 40 12/16/18 22:49 68 16 100 Mechanical Ventilator 40 12/16/18 22:44 84 16 40 12/16/18 21:00 84 17 40 12/16/18 20:00 Mechanical Ventilator 12/16/18 20:00 77 12/16/18 20:00 98.2 79 16 124/68 (86) 100 12/16/18 20:00 40 12/16/18 19:23 78 16 40 12/16/18 17:18 86 17 40 12/16/18 16:00 40 12/16/18 16:00 100.0 87 16 145/77 (99) 99 12/16/18 16:00 Mechanical Ventilator 12/16/18 15:28 87 12/16/18 15:13 88 17 40 12/16/18 13:08 95 20 40 12/16/18 12:00 Mechanical Ventilator 12/16/18 12:00 40 12/16/18 12:00 98.4 98 20 128/92 (104) 100 12/16/18 11:58 97 24 100 Mechanical Ventilator 40 12/16/18 11:53 94 24 100 Mechanical Ventilator 40 12/16/18 11:52 7 24 40 12/16/18 11:49 95 Status: awake Condition: critical HEENT: atraumatic Heart: HR/BP stable Abdomen: soft, active bowel sounds Extremities: no C/C/E Decubiti: stage Critical Care - Subjective ROS Limited/Unobtainable: Yes Condition: critical EKG Rhythm: Sinus Rhythm FI02: 40 Vent Support Breath Rate: 16 Vent Support Mode: AC Vent Tidal Volume: 600 Sputum Amount: Scant PEEP: 5.0 PIP: 27 Tube Feeding Amount: 60 I&O: Intake and Output 12/16/18 12/17/18 19:00 07:00 Intake Total 1112.5 ml 947.5 ml Output Total 350 ml 350 ml Balance 762.5 ml 597.5 ml Intake Free Water 50 ml IV Total 192.5 ml 137.5 ml Tube Feeding 720 ml 660 ml Other 200 ml 100 ml Output Urine Total 350 ml 350 ml # Bowel Movements 1 CXR: no change Labs: Laboratory Tests Test 12/17/18 03:43 White Blood Count 12.5 K/UL (4.8-10.8) H Red Blood Count 2.94 M/UL (4.70-6.10) L Hemoglobin 7.9 G/DL (14.2-18.0) L Hematocrit 24.8 % (42.0-52.0) L Mean Corpuscular Volume 84 FL (80-99) Mean Corpuscular Hemoglobin 26.9 PG (27.0-31.0) L Mean Corpuscular Hemoglobin Concent 31.9 G/DL (32.0-36.0) L Red Cell Distribution Width 14.9 % (11.6-14.8) H Platelet Count 334 K/UL (150-450) Mean Platelet Volume 6.7 FL (6.5-10.1) Neutrophils (%) (Auto) % (45.0-75.0) Lymphocytes (%) (Auto) % (20.0-45.0) Monocytes (%) (Auto) % (1.0-10.0) Eosinophils (%) (Auto) % (0.0-3.0) Basophils (%) (Auto) % (0.0-2.0) Sodium Level 134 MMOL/L (136-145) L Potassium Level 3.4 MMOL/L (3.5-5.1) L Chloride Level 100 MMOL/L (98-107) Carbon Dioxide Level 23 MMOL/L (21-32) Anion Gap 11 mmol/L (5-15) Blood Urea Nitrogen 21 mg/dL (7-18) H Creatinine 1.3 MG/DL (0.55-1.30) Estimat Glomerular Filtration Rate 54.6 mL/min (>60) Glucose Level 139 MG/DL (74-106) H Calcium Level 8.8 MG/DL (8.5-10.1) Total Bilirubin 0.2 MG/DL (0.2-1.0) Aspartate Amino Transf (AST/SGOT) 10 U/L (15-37) L Alanine Aminotransferase (ALT/SGPT) 12 U/L (12-78) Alkaline Phosphatase 86 U/L (46-116) Pro-B-Type Natriuretic Peptide 651 pg/mL (0-125) H Total Protein 7.5 G/DL (6.4-8.2) Albumin 2.3 G/DL (3.4-5.0) L Globulin 5.2 g/dL Albumin/Globulin Ratio 0.4 (1.0-2.7) L Huma Keating MD Dec 17, 2018 09:46
--- NOTE | 2018-12-17 11:29 | NUR ---
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 ASPIRATION PNA VS: BP 130/71, P 99, T 99.5, RR 20, SpO2 100 on VENT AC 16, TV 600, PEEP 5.0, FiO2 40 WBC 12.5, RBC 2.94, Hgb 7.9, Hct 24.8, Na 134, K 3.4, BUN 21 IS:K-DUR 40meq COLISTIN 150mg INH DIFLUCAN 200mg SUCRALFATE 1gm GT ZOSYN 110ml IV PROTONIX 40mg IV SYNTHROID 75mcg GT HEPARIN SUBQ SDU STATUS
[2018-12-17 12:00] VITALS: BP 134/67
--- NOTE | 2018-12-17 12:07 | NUR ---
*-*INSURANCE *-* UPDATED CLINICALS & REVIEW HAVE BEEN FAXED TO: [facility]: JOSE Soares P- [phone] F- [phone]...REVIEW/CLINICAL
--- NOTE | 2018-12-17 13:55 | General Progress Note ---
Assessment/Plan Problem List: (1) Severe sepsis ICD Codes: A41.9 - Sepsis, unspecified organism; R65.20 - Severe sepsis without septic shock SNOMED: 40849636 (2) Severe protein-calorie malnutrition ICD Codes: E43 - Unspecified severe protein-calorie malnutrition SNOMED: 551380475 (3) Feeding by G-tube ICD Codes: Z93.1 - Gastrostomy status SNOMED: 508988305, 389402471 (4) Respiratory failure, eruyb-vg-nrnrpct ICD Codes: J96.20 - Respiratory failure, [id number] SNOMED: 91435070 (5) Anemia ICD Codes: D64.9 - Anemia, unspecified SNOMED: 016150286 (6) Aspiration pneumonia ICD Codes: J69.0 - Pneumonitis due to inhalation of food and vomit SNOMED: 180186239 (7) Acute renal failure ICD Codes: N17.9 - Acute kidney failure, unspecified SNOMED: 07008106 Status: unchanged Assessment/Plan vent abx cbc bmp am promise ltach eval vs dc plan snf Subjective Constitutional: Reports: weakness Allergies: Coded Allergies: NO KNOWN DRUG ALLERGIES (Verified Allergy, Unknown, 09/11/16) All Systems: reviewed and negative except above Subjective trach vent altered Objective Last 24 Hour Vital Signs Date Time Temp Pulse Resp B/P (MAP) Pulse Ox O2 Delivery O2 Flow Rate FiO2 12/17/18 13:25 95 18 40 12/17/18 12:01 Mechanical Ventilator 12/17/18 12:00 40 12/17/18 12:00 99.9 92 18 134/67 (89) 100 12/17/18 11:10 89 18 40 12/17/18 09:44 99 19 100 Mechanical Ventilator 40 12/17/18 09:23 98 20 100 Mechanical Ventilator 40 12/17/18 09:08 97 17 40 12/17/18 08:02 94 18 40 12/17/18 08:00 99.5 96 18 130/71 (90) 99 12/17/18 08:00 40 12/17/18 08:00 92 12/17/18 08:00 Mechanical Ventilator 12/17/18 06:18 99 17 40 12/17/18 04:00 78 12/17/18 04:00 97.1 72 20 131/59 (83) 97 12/17/18 04:00 Mechanical Ventilator 12/17/18 04:00 40 12/17/18 03:21 89 17 40 12/17/18 01:32 88 19 40 12/17/18 00:00 73 12/17/18 00:00 Mechanical Ventilator 12/17/18 00:00 97.2 70 20 128/63 (84) 98 12/17/18 00:00 40 12/16/18 23:01 97 23 75 Mechanical Ventilator 40 12/16/18 22:49 68 16 100 Mechanical Ventilator 40 12/16/18 22:44 84 16 40 12/16/18 21:00 84 17 40 12/16/18 20:00 Mechanical Ventilator 12/16/18 20:00 77 12/16/18 20:00 98.2 79 16 124/68 (86) 100 12/16/18 20:00 40 12/16/18 19:23 78 16 40 12/16/18 17:18 86 17 40 12/16/18 16:00 40 12/16/18 16:00 100.0 87 16 145/77 (99) 99 12/16/18 16:00 Mechanical Ventilator 12/16/18 15:28 87 12/16/18 15:13 88 17 40 Intake and Output 12/16/18 12/17/18 19:00 07:00 Intake Total 1112.5 ml 947.5 ml Output Total 350 ml 350 ml Balance 762.5 ml 597.5 ml Intake Free Water 50 ml IV Total 192.5 ml 137.5 ml Tube Feeding 720 ml 660 ml Other 200 ml 100 ml Output Urine Total 350 ml 350 ml # Bowel Movements 1 Laboratory Tests 12/17/18 03:43: White Blood Count 12.5H, Red Blood Count 2.94L, Hemoglobin 7.9L, Hematocrit 24.8L, Mean Corpuscular Volume 84, Mean Corpuscular Hemoglobin 26.9L, Mean Corpuscular Hemoglobin Concent 31.9L, Red Cell Distribution Width 14.9H, Platelet Count 334, Mean Platelet Volume 6.7, Neutrophils (%) (Auto) , Lymphocytes (%) (Auto) , Monocytes (%) (Auto) , Eosinophils (%) (Auto) , Basophils (%) (Auto) , Sodium Level 134L, Potassium Level 3.4L, Chloride Level 100, Carbon Dioxide Level 23, Anion Gap 11, Blood Urea Nitrogen 21H, Creatinine 1.3, Estimat Glomerular Filtration Rate 54.6, Glucose Level 139H, Calcium Level 8.8, Total Bilirubin 0.2, Aspartate Amino Transf (AST/SGOT) 10L, Alanine Aminotransferase (ALT/SGPT) 12, Alkaline Phosphatase 86, Pro-B-Type Natriuretic Peptide 651H, Total Protein 7.5, Albumin 2.3L, Globulin 5.2, Albumin/Globulin Ratio 0.4L Height (Feet): 5 Height (Inches): 10.00 Weight (Pounds): 132 General Appearance: lethargic EENT: normal ENT inspection Neck: normal alignment Cardiovascular: normal peripheral pulses, normal rate, regular rhythm Respiratory/Chest: chest wall non-tender, lungs clear, normal breath sounds Abdomen: normal bowel sounds, non tender, soft Extremities: normal inspection Edema: no edema noted Arm (L), no edema noted Arm (R), no edema noted Leg (L), no edema noted Leg (R), no edema noted Pedal (L), no edema noted Pedal (R), no edema noted Generalized Neurologic: motor weakness Skin: normal pigmentation, warm/dry Gato Viveros DO Dec 17, 2018 13:55
--- NOTE | 2018-12-17 14:00 | NUR ---
NURSE NOTES: no any distress at this time, tolerate GT feeding well, bed bath given, continue monitoring.
--- NOTE | 2018-12-17 15:25 | NUR ---
NURSE NOTES:WOUND CARE FOLLOW-UP NOTES:Non-Blanchable erythema without fluctuance noted to L elbow.Periwound clean,pink and dry.Cavilon Skin Barrier applied and covered with Optifoam drsg. Areas of non-blanchable erythema lateral R malleolus and L lateral foot have resolved. All affected areas are now pink and dry. Non-blanchable erythema without fluctuance/induration L lateral malleolus.Cavilon Skin Barrier applied to R lateral malleolus lateral R foot and R heel .Each site covered with Optifoam for prevention. Non-blanchable erythema without fluctuance or induration lateral L foot. Non-blanchable erythema without fluctuance or induration Distal/lateral L foot and lateral 5th metatarsal. L heel pink and blanchable Cavilon Skin Barrier applied to affected areas and each site and L heel covered with Optifoam drsgs.Area along T spine with dry plaque of pink loose skin.Covered with Optifoam. Non-blanchabl erythema lumbar soine resolved .Optifoam drsg maintained for protection.Sacrum is pink and intact. No new areas of skin concerns noted
[2018-12-17 16:00] VITALS: BP 129/57
--- NOTE | 2018-12-17 16:46 | NUR ---
DISCHARGE PLANNING REFERRAL WAS FAXED TO [facility], THEY WILL ACCEPT PATIENT ONCE MEDICALLY CLEARED.
--- NOTE | 2018-12-17 19:20 | NUR ---
NURSE NOTES: Pt report received from Jeannie HARTLEY. Pt appears to be resting comfortably in his bed. Pt has his overnight cashier on and active. pt is trach to vent with reported settings of Portex 8 AC 16 TV 600 Fio2 40%, Peep 5. Pt does not have any respiratory distress or cardiac distress at this moment. Pt is satting at 98% with trach to vent. Pt has a Right upper arm PICC that is asymptomatic and patent with flushing. Pt has a condom cath that is intact and draining to gravity, no abnormalities noted. Pt has a G tube that is running Osmolite 1.2 at 60cc/hr, no abnormalities noted. all safety precautions are in place, such as bed is in the lowest position, call light within easy reach, bed alarm is active, side rails are up times 3 and seizure padded. Will continue plan of care.
--- NOTE | 2018-12-17 19:30 | NUR ---
HAND-OFF: Report given to IRAIDA HARTLEY, CONDITION STABLE.
[2018-12-17 20:00] VITALS: BP 113/68
[2018-12-17] MEDS: Dyna-Hex 2% Top Sol 2oz TOPIC SCH (20:21)
[2018-12-18] VITALS: BP 110/63
[2018-12-18] MEDS: Sucralfate 1gm tab GT SCH ×4 (00:41→17:44)
[2018-12-18 04:00] VITALS: BP 130/73
[2018-12-18 04:07] LABS: HEMATOCRIT 24.1 % (42.0-52.0); HEMOGLOBIN 7.7 G/DL (14.2-18.0); MEAN CORPUSCULAR VOLUME 84 FL (80-99); PLATELET COUNT 325 K/UL (150-450); RED BLOOD COUNT 2.87 M/UL (4.70-6.10); RED CELL DISTRIBUTION WIDTH 15.1 % (11.6-14.8); WHITE BLOOD COUNT 14.8 K/UL (4.8-10.8)
[2018-12-18 04:19] LABS: ALANINE AMINOTRANSFERASE 12 U/L (12-78); ALBUMIN 2.3 G/DL (3.4-5.0); ALBUMIN/GLOBULIN RATIO 0.5 (1.0-2.7); ALKALINE PHOSPHATASE 81 U/L (46-116); ANION GAP 8 mmol/L (5-15); ASPARTATE AMINO TRANSFERASE 14 U/L (15-37); BILIRUBIN,TOTAL 0.2 MG/DL (0.2-1.0); BLOOD UREA NITROGEN 22 mg/dL (7-18); CALCIUM 8.9 MG/DL (8.5-10.1); CARBON DIOXIDE 24 MMOL/L (21-32); CHLORIDE 102 MMOL/L (98-107); CREATININE 1.2 MG/DL (0.55-1.30); PHOSPHORUS 1.7 MG/DL (2.5-4.9); SODIUM 134 MMOL/L (136-145)
[2018-12-18] MEDS: Piperacillin/Tazobactam 3.375 GM in D5W 110 ML IV SCH ×3 (05:14→22:16)
--- NOTE | 2018-12-18 07:19 | NUR ---
RESPIRATORY NOTE: Patient received mechanically ventilated on PB 840 with current ordered vent settings. Patient has trach size 8.0 Portex cuffed that is secured with trach tie and guard. There are bilateral coarse breath sounds present and moderate amount of thick clear secretions were suctioned without incident. Vent alarms are functional and audible and the vent is connected to a red outlet. There is an ambu bag available at the bedside. Will continue to monitor.
--- NOTE | 2018-12-18 07:20 | NUR ---
HAND-OFF: Report given to Shavon HARTLEY.
--- NOTE | 2018-12-18 07:21 | NUR ---
Received pt from Cesar Penaloza RN in stable condition with no cardiopulmonary distress noted. Pt is asleep, trache to vent Portex 8 AC 16 TV 600 FiO2 40% Peep 5. GT noted running Osmolite 1.2 @ 60cc/hr. Pt has a condom cath draining yellow urine in urine bag. PRASHANTH PICC line noted. Skin alterations noted. Side rails padded for seizure precaution. Bed is in lowest position with alarm on, side rails up x 2, call light within reach. Will continue to monitor pt. Addendum: 12/18/18 at 1752 by Iona Martins RN Amendment: Osmolite 1.5
[2018-12-18 08:00] VITALS: BP 150/65
[2018-12-18] MEDS: Fluconazole 100mg tab ORAL SCH (08:19)
[2018-12-18] MEDS: Heparin 5000 units/ml inj SUBQ SCH ×2 (08:22→20:38)
--- NOTE | 2018-12-18 08:43 | General Progress Note ---
Assessment/Plan Problem List: (1) Severe sepsis ICD Codes: A41.9 - Sepsis, unspecified organism; R65.20 - Severe sepsis without septic shock SNOMED: 21899643 (2) Severe protein-calorie malnutrition ICD Codes: E43 - Unspecified severe protein-calorie malnutrition SNOMED: 780767265 (3) Feeding by G-tube ICD Codes: Z93.1 - Gastrostomy status SNOMED: 633775187, 623487601 (4) Respiratory failure, nyzqo-rh-nqvvevi ICD Codes: J96.20 - Respiratory failure, ydrkk-km-hlmqqtq SNOMED: 60016089 (5) Anemia ICD Codes: D64.9 - Anemia, unspecified SNOMED: 506948541 (6) Aspiration pneumonia ICD Codes: J69.0 - Pneumonitis due to inhalation of food and vomit SNOMED: 666676166 (7) Acute renal failure ICD Codes: N17.9 - Acute kidney failure, unspecified SNOMED: 99144826 Status: unchanged Assessment/Plan vent abx cbc bmp am dc plan snf Subjective Constitutional: Reports: weakness Allergies: Coded Allergies: NO KNOWN DRUG ALLERGIES (Verified Allergy, Unknown, 09/11/16) All Systems: reviewed and negative except above Subjective trach vent altered Objective Last 24 Hour Vital Signs Date Time Temp Pulse Resp B/P (MAP) Pulse Ox O2 Delivery O2 Flow Rate FiO2 12/18/18 07:15 78 18 40 12/18/18 05:07 83 20 40 12/18/18 04:00 98.2 89 20 130/73 (92) 100 12/18/18 04:00 40 12/18/18 04:00 Mechanical Ventilator 12/18/18 04:00 91 12/18/18 03:16 95 22 40 12/18/18 01:10 95 17 40 12/18/18 00:00 Mechanical Ventilator 12/18/18 00:00 98.9 92 17 110/63 (79) 100 12/18/18 00:00 89 12/17/18 22:53 91 18 100 Mechanical Ventilator 40 12/17/18 22:41 88 18 99 Mechanical Ventilator 40 12/17/18 22:41 88 18 40 12/17/18 20:00 99.1 88 16 113/68 (83) 100 12/17/18 20:00 Mechanical Ventilator 12/17/18 20:00 95 12/17/18 20:00 40 12/17/18 19:16 87 22 40 12/17/18 16:52 94 19 40 12/17/18 16:00 99.6 103 19 129/57 (81) 100 12/17/18 16:00 96 12/17/18 16:00 Mechanical Ventilator 12/17/18 16:00 40 12/17/18 15:25 88 20 40 12/17/18 13:25 95 18 40 12/17/18 12:01 Mechanical Ventilator 12/17/18 12:00 88 12/17/18 12:00 40 12/17/18 12:00 99.9 92 18 134/67 (89) 100 12/17/18 11:10 89 18 40 12/17/18 09:44 99 19 100 Mechanical Ventilator 40 12/17/18 09:23 98 20 100 Mechanical Ventilator 40 12/17/18 09:08 97 17 40 Intake and Output 12/17/18 12/18/18 19:00 07:00 Intake Total 870 ml 837.5 ml Output Total 750 ml Balance 120 ml 837.5 ml Intake Free Water 150 ml 100 ml IV Total 137.5 ml Tube Feeding 720 ml 600 ml Output Urine Total 750 ml # Bowel Movements 1 Laboratory Tests 12/18/18 04:00: White Blood Count 14.8H, Red Blood Count 2.87L, Hemoglobin 7.7L, Hematocrit 24.1L, Mean Corpuscular Volume 84, Mean Corpuscular Hemoglobin 26.8L, Mean Corpuscular Hemoglobin Concent 31.9L, Red Cell Distribution Width 15.1H, Platelet Count 325, Mean Platelet Volume 6.3L, Neutrophils (%) (Auto) , Lymphocytes (%) (Auto) , Monocytes (%) (Auto) , Eosinophils (%) (Auto) , Basophils (%) (Auto) , Erythrocyte Sedimentation Rate 130H, Sodium Level 134L, Potassium Level 4.0, Chloride Level 102, Carbon Dioxide Level 24, Anion Gap 8, Blood Urea Nitrogen 22H, Creatinine 1.2, Estimat Glomerular Filtration Rate 59.9 , Glucose Level 124H, Calcium Level 8.9, Phosphorus Level 1.7L, Magnesium Level 1.9, Total Bilirubin 0.2, Aspartate Amino Transf (AST/SGOT) 14L, Alanine Aminotransferase (ALT/SGPT) 12, Alkaline Phosphatase 81, C-Reactive Protein, Quantitative 11.9H, Total Protein 7.4, Albumin 2.3L, Globulin 5.1, Albumin/ Globulin Ratio 0.5L Height (Feet): 5 Height (Inches): 10.00 Weight (Pounds): 142 General Appearance: lethargic EENT: normal ENT inspection Neck: normal alignment Cardiovascular: normal peripheral pulses, normal rate, regular rhythm Respiratory/Chest: chest wall non-tender, decreased breath sounds Abdomen: normal bowel sounds, non tender, soft Extremities: normal inspection Edema: no edema noted Arm (L), no edema noted Arm (R), no edema noted Leg (L), no edema noted Leg (R), no edema noted Pedal (L), no edema noted Pedal (R), no edema noted Generalized Neurologic: motor weakness Skin: normal pigmentation, warm/dry Gato Viveros DO Dec 18, 2018 08:43
--- NOTE | 2018-12-18 09:50 | Infectious Diseases Prog Note ---
Assessment/Plan Assessment/Plan Abx: IV Vancomycin 12/08- Cefepime 12/08- Levaquinx 1 12/08 Assessment: Leukocytosis; imrpoving- ?UTI -u/a wbc 5-10, nit n eg, leuk +3; ucx NTD -CXR: No acute process. Right basilar atelectasis -Sp cx 12/09/18 E.coli (ESBL), P.a. 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 diff Dysphagia s/p G-tube Anemia. CVA/TIA w/ hemiplegia functional quadriplegia chronic encephalopathy CAD CHF Dm2 GIB s/p multiple EGDs in the past hx of severe esophagitis schizoaffective disease [facility] resident multiple admissions VRE colonization Plan: - Continue Zosyn #6, inhaled colistin #3 for MDR P.a.for sputum organism - Continue Fluconazole #3 for Yeast it the urine Additional P.a. Sensi pending. Im hesitant to start Amikacin given increased cr but if leukocytosis continues to increase it may be required. - 12/12 S/P Vancomycin and Cefepime #5 -12/08 SP Levaquin x1 -11/06 SP Amikacin #6 -11/01 SP Meropenem #4 -10/29 SP IV Vanco #2, Cefepime #2 and Tigecycline #1 -10/28 SP LEavquin x1 -10/09 SP Ertapenem #5 - 10/04 SP Meropenem #2 -10/03/18 SP IV Vancomycin #2 and Cefepime #2 -08/09/ SP Bactrim #7 -08/03 SP Vancomycin and Cefepime #3 -08/01/18 SP Ceftriaxone x1 -Monitor CBC/CMP, temperatures -Peg/trach care -aspiration precautions Will continue to follow along with you. Subjective Allergies: Coded Allergies: NO KNOWN DRUG ALLERGIES (Verified Allergy, Unknown, 09/11/16) Subjective Afebrile Mild Leukocytosis continues Satting well on vent CXR 12/16/18 - NAD Objective Vital Signs Last 24 Hour Vital Signs Date Time Temp Pulse Resp B/P (MAP) Pulse Ox O2 Delivery O2 Flow Rate FiO2 12/18/18 08:31 97 21 40 12/18/18 07:15 78 18 40 12/18/18 05:07 83 20 40 12/18/18 04:00 98.2 89 20 130/73 (92) 100 12/18/18 04:00 40 12/18/18 04:00 Mechanical Ventilator 12/18/18 04:00 91 12/18/18 03:16 95 22 40 12/18/18 01:10 95 17 40 12/18/18 00:00 Mechanical Ventilator 12/18/18 00:00 98.9 92 17 110/63 (79) 100 12/18/18 00:00 89 12/17/18 22:53 91 18 100 Mechanical Ventilator 40 12/17/18 22:41 88 18 99 Mechanical Ventilator 40 12/17/18 22:41 88 18 40 12/17/18 20:00 99.1 88 16 113/68 (83) 100 12/17/18 20:00 Mechanical Ventilator 12/17/18 20:00 95 12/17/18 20:00 40 12/17/18 19:16 87 22 40 12/17/18 16:52 94 19 40 12/17/18 16:00 99.6 103 19 129/57 (81) 100 12/17/18 16:00 96 12/17/18 16:00 Mechanical Ventilator 12/17/18 16:00 40 12/17/18 15:25 88 20 40 12/17/18 13:25 95 18 40 12/17/18 12:01 Mechanical Ventilator 12/17/18 12:00 88 12/17/18 12:00 40 12/17/18 12:00 99.9 92 18 134/67 (89) 100 12/17/18 11:10 89 18 40 Height (Feet): 5 Height (Inches): 10.00 Weight (Pounds): 142 Objective Gen: NAD, Satting well on vent. HEENT: NCAT, MMM, Trached on vent Lungs: Coarse B/L Heart: RRR, S1, S2 Abdomen: soft, non-tender Laboratory Tests Test 12/18/18 04:00 White Blood Count 14.8 K/UL (4.8-10.8) H Red Blood Count 2.87 M/UL (4.70-6.10) L Hemoglobin 7.7 G/DL (14.2-18.0) L Hematocrit 24.1 % (42.0-52.0) L Mean Corpuscular Volume 84 FL (80-99) Mean Corpuscular Hemoglobin 26.8 PG (27.0-31.0) L Mean Corpuscular Hemoglobin Concent 31.9 G/DL (32.0-36.0) L Red Cell Distribution Width 15.1 % (11.6-14.8) H Platelet Count 325 K/UL (150-450) Mean Platelet Volume 6.3 FL (6.5-10.1) L Neutrophils (%) (Auto) % (45.0-75.0) Lymphocytes (%) (Auto) % (20.0-45.0) Monocytes (%) (Auto) % (1.0-10.0) Eosinophils (%) (Auto) % (0.0-3.0) Basophils (%) (Auto) % (0.0-2.0) Erythrocyte Sedimentation Rate 130 MM/HR (0-20) H Sodium Level 134 MMOL/L (136-145) L Potassium Level 4.0 MMOL/L (3.5-5.1) Chloride Level 102 MMOL/L (98-107) Carbon Dioxide Level 24 MMOL/L (21-32) Anion Gap 8 mmol/L (5-15) Blood Urea Nitrogen 22 mg/dL (7-18) H Creatinine 1.2 MG/DL (0.55-1.30) Estimat Glomerular Filtration Rate 59.9 mL/min (>60) Glucose Level 124 MG/DL (74-106) H Calcium Level 8.9 MG/DL (8.5-10.1) Phosphorus Level 1.7 MG/DL (2.5-4.9) L Magnesium Level 1.9 MG/DL (1.8-2.4) Total Bilirubin 0.2 MG/DL (0.2-1.0) Aspartate Amino Transf (AST/SGOT) 14 U/L (15-37) L Alanine Aminotransferase (ALT/SGPT) 12 U/L (12-78) Alkaline Phosphatase 81 U/L (46-116) C-Reactive Protein, Quantitative 11.9 mg/dL (0.00-0.90) H Total Protein 7.4 G/DL (6.4-8.2) Albumin 2.3 G/DL (3.4-5.0) L Globulin 5.1 g/dL Albumin/Globulin Ratio 0.5 (1.0-2.7) L Current Medications Medications (Trade) Dose Ordered Sig/Wanda Route PRN Reason Start Time Stop Time Status Last Admin Dose Admin Acetaminophen (Tylenol) 650 mg Q4H PRN GT Mild Pain/Temp > 100.5 12/15/18 10:45 01/14/19 10:44 12/16/18 18:24 Chlorhexidine Gluconate (Jasmin-Hex 2%) 1 applic DAILY@1999 TOPIC 12/11/18 20:00 01/10/19 19:59 12/17/18 20:21 Colistimethate Sodium (Colistin *inhalation use only*) 150 mg Q12HR@, INH 12/16/18 10:00 12/23/18 09:59 12/17/18 22:41 Dextrose (Dextrose 50%) 25 ml Q30M PRN IV Hypoglycemia 12/08/18 16:15 01/07/19 16:14 Dextrose (Dextrose 50%) 50 ml Q30M PRN IV hypoglycemia 12/08/18 16:15 01/07/19 16:14 Fluconazole (Diflucan) 200 mg DAILY ORAL 12/16/18 09:00 12/23/18 08:59 12/18/18 08:19 Heparin Sodium (Porcine) (Heparin 5000 units/ml) 5,000 units EVERY 12 HOURS SUBQ 12/08/18 21:00 01/07/19 20:59 12/18/18 08:22 Lansoprazole (Prevacid) 30 mg DAILY GT 12/18/18 09:00 01/17/19 08:59 12/18/18 08:19 Levothyroxine Sodium (Synthroid) 75 mcg Q24H GT 12/09/18 06:30 01/08/19 06:29 12/18/18 05:37 Ondansetron HCl (Zofran) 4 mg Q6H PRN IVP Nausea & Vomiting 12/08/18 16:00 01/07/19 15:59 Piperacillin Sod/ Tazobactam Sod 3.375 gm/Dextrose 110 ml @ 27.5 mls/hr EVERY 8 HOURS IV 12/12/18 14:00 12/21/18 13:59 12/18/18 05:14 Polyethylene Glycol (Miralax) 17 gm DAILYPRN PRN GT Constipation 12/15/18 10:45 01/07/19 15:59 Sucralfate (Carafate) 1 gm EVERY 6 HOURS GT 12/15/18 18:00 01/07/19 17:59 12/18/18 05:14 John Fiore MD Dec 18, 2018 09:50
[2018-12-18] MEDS: Colistin for inhalation INH SCH ×2 (10:40→21:33)
--- NOTE | 2018-12-18 10:50 | Pulmonolgy Critical Care Note ---
Critical Care - Asmt/Plan Problems: (1) Respiratory failure, [id number] (2) Aspiration pneumonia (3) Severe sepsis (4) Anemia (5) Psychosis (6) Hypothyroidism (7) Severe protein-calorie malnutrition (8) Feeding by G-tube Respiratory: monitor respiratory rate, adjust FIO2, CXR Cardiac: continue to monitor HR/BP Renal: F/U I&O, check electrolytes Infectious Disease: check cultures Gastrointestinal: continue feedings/current rate Endocrine: monitor blood sugar, check HgA1C Hematologic: monitor H/H, transfuse if hgb<8.5 Neurologic: PRN Morphine, keep patient comfortable Time Spent (Minutes): 40 Notes Reviewed: 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 with: nurses, consultants, bottle caserengine manager - Objective Last 24 Hour Vital Signs Date Time Temp Pulse Resp B/P (MAP) Pulse Ox O2 Delivery O2 Flow Rate FiO2 12/18/18 10:40 91 20 100 Mechanical Ventilator 40 12/18/18 10:38 91 20 40 12/18/18 08:31 97 21 40 12/18/18 08:00 89 12/18/18 08:00 98.1 88 16 150/65 (93) 100 12/18/18 08:00 40 12/18/18 07:15 78 18 40 12/18/18 05:07 83 20 40 12/18/18 04:00 98.2 89 20 130/73 (92) 100 12/18/18 04:00 40 12/18/18 04:00 Mechanical Ventilator 12/18/18 04:00 91 12/18/18 03:16 95 22 40 12/18/18 01:10 95 17 40 12/18/18 00:00 Mechanical Ventilator 12/18/18 00:00 98.9 92 17 110/63 (79) 100 12/18/18 00:00 89 12/17/18 22:53 91 18 100 Mechanical Ventilator 40 12/17/18 22:41 88 18 99 Mechanical Ventilator 40 12/17/18 22:41 88 18 40 12/17/18 20:00 99.1 88 16 113/68 (83) 100 12/17/18 20:00 Mechanical Ventilator 12/17/18 20:00 95 12/17/18 20:00 40 12/17/18 19:16 87 22 40 12/17/18 16:52 94 19 40 12/17/18 16:00 99.6 103 19 129/57 (81) 100 12/17/18 16:00 96 12/17/18 16:00 Mechanical Ventilator 12/17/18 16:00 40 12/17/18 15:25 88 20 40 12/17/18 13:25 95 18 40 12/17/18 12:01 Mechanical Ventilator 12/17/18 12:00 88 12/17/18 12:00 40 12/17/18 12:00 99.9 92 18 134/67 (89) 100 12/17/18 11:10 89 18 40 Status: awake Condition: critical HEENT: atraumatic, normocephalic Neck: trach Lungs: rales, rhonchi Heart: HR/BP stable Abdomen: soft, non-tender, feeding tube Extremities: no C/C/E Critical Care - Subjective ROS Limited/Unobtainable: Yes Condition: critical EKG Rhythm: Sinus Rhythm FI02: 40 Vent Support Breath Rate: 16 Vent Support Mode: AC Vent Tidal Volume: 600 Sputum Amount: Large PEEP: 5.0 PIP: 27 Tube Feeding Amount: 60 I&O: Intake and Output 12/17/18 12/18/18 19:00 07:00 Intake Total 870 ml 837.5 ml Output Total 750 ml Balance 120 ml 837.5 ml Intake Free Water 150 ml 100 ml IV Total 137.5 ml Tube Feeding 720 ml 600 ml Output Urine Total 750 ml # Bowel Movements 1 Labs: Laboratory Tests Test 12/18/18 04:00 White Blood Count 14.8 K/UL (4.8-10.8) H Red Blood Count 2.87 M/UL (4.70-6.10) L Hemoglobin 7.7 G/DL (14.2-18.0) L Hematocrit 24.1 % (42.0-52.0) L Mean Corpuscular Volume 84 FL (80-99) Mean Corpuscular Hemoglobin 26.8 PG (27.0-31.0) L Mean Corpuscular Hemoglobin Concent 31.9 G/DL (32.0-36.0) L Red Cell Distribution Width 15.1 % (11.6-14.8) H Platelet Count 325 K/UL (150-450) Mean Platelet Volume 6.3 FL (6.5-10.1) L Neutrophils (%) (Auto) % (45.0-75.0) Lymphocytes (%) (Auto) % (20.0-45.0) Monocytes (%) (Auto) % (1.0-10.0) Eosinophils (%) (Auto) % (0.0-3.0) Basophils (%) (Auto) % (0.0-2.0) Erythrocyte Sedimentation Rate 130 MM/HR (0-20) H Sodium Level 134 MMOL/L (136-145) L Potassium Level 4.0 MMOL/L (3.5-5.1) Chloride Level 102 MMOL/L (98-107) Carbon Dioxide Level 24 MMOL/L (21-32) Anion Gap 8 mmol/L (5-15) Blood Urea Nitrogen 22 mg/dL (7-18) H Creatinine 1.2 MG/DL (0.55-1.30) Estimat Glomerular Filtration Rate 59.9 mL/min (>60) Glucose Level 124 MG/DL (74-106) H Calcium Level 8.9 MG/DL (8.5-10.1) Phosphorus Level 1.7 MG/DL (2.5-4.9) L Magnesium Level 1.9 MG/DL (1.8-2.4) Total Bilirubin 0.2 MG/DL (0.2-1.0) Aspartate Amino Transf (AST/SGOT) 14 U/L (15-37) L Alanine Aminotransferase (ALT/SGPT) 12 U/L (12-78) Alkaline Phosphatase 81 U/L (46-116) C-Reactive Protein, Quantitative 11.9 mg/dL (0.00-0.90) H Total Protein 7.4 G/DL (6.4-8.2) Albumin 2.3 G/DL (3.4-5.0) L Globulin 5.1 g/dL Albumin/Globulin Ratio 0.5 (1.0-2.7) L Huma Keating MD Dec 18, 2018 10:50
[2018-12-18 12:00] VITALS: BP 143/78
--- NOTE | 2018-12-18 12:53 | NUR ---
*-*INSURANCE *-* UPDATED CLINICALS & REVIEW HAVE BEEN FAXED TO: [facility]: JOSE Soares P- [phone] F- [phone]...REVIEW/CLINICAL
--- NOTE | 2018-12-18 13:17 | NUR ---
CASE MANGER REVIEW SI:ANEMIA . ASPIRATION PNA VS: BP 150/65, P 93, T 98.1, RR 21, SpO2 100 on VENT FiO2 40% WBC 14.8, RBC 2.87, Hgb 7.7, Hct 24.1, Na 134, BUN 22 IS:HEPARIN SUBQ SYNTHROID 75mcg GT ZOSYN 110ml IV SUCRALFATE 1gm DIFLUCAN 200mg COLISTIN 150mg INH PREVACID 30mg GT SDU STATUS
--- NOTE | 2018-12-18 14:13 | NUR ---
P.T NOTE: LATE ENTRY 2522 P.T EVALUATION ATTEMPTED HOWEVER PATIENT REFUSED. RN NOTIFIED/AWARE. WILL REATTEMPT. Addendum: 12/18/18 at 1417 by DAYNA MOSLEY PT P.T NOTE: CORRECTION PLEASE DISREGARD ABOVE P.T NOTE: WRONG ENTRY!
[2018-12-18 16:00] VITALS: BP 131/69
--- NOTE | 2018-12-18 18:57 | NUR ---
RESPIRATORY NOTE: Received pt on AC 16, 600VT, 40%, PEEP +5. Pt trach-dependent w/ a cuffed, Portex 8 tube. Pt asleep/disoriented, responds to stimuli. B/S nora. rhonchi, sxn small to moderate amounts of thick/thin, clear-white secretions. Vent plugged into red outlet, ambubag & spare trach kit at bedside. Pt resting comfortably, in no apparent distress at this time. Will continue plan of care.
--- NOTE | 2018-12-18 19:21 | NUR ---
HAND-OFF: Report given to ODILIA Hendrix. Pt in stable condition.
--- NOTE | 2018-12-18 19:25 | NUR ---
NURSE NOTES: Report received from ODILIA Monson. Observed pt lying on the bed, awake, obtunded. No signs of pain noted. SR with quality assurance monitor chassis. Tolerating well current vent setting at Portex 8, AC 16, TV 600, FIO2 35%, PEEP of 5. Gtube site intact and patent, running Osmolite 1.5 at 60cc/hr. Condom cath intact and draining well. PICC line on PRASHANTH, intact and patent. Bed in the lowest position. Side rails padded and up x3. Will continue to monitor.
[2018-12-18 20:00] VITALS: BP 111/72
[2018-12-18] MEDS: Dyna-Hex 2% Top Sol 2oz TOPIC SCH (20:37)
[2018-12-19] VITALS: BP 136/73
--- NOTE | 2018-12-19 | NUR ---
NURSE NOTES: Observed pt sleeping on the bed. No acute distress noted at this time. Oral care and reposition done. will continue to monitor.
[2018-12-19] MEDS: Sucralfate 1gm tab GT SCH ×5 (00:24→23:00)
[2018-12-19 04:00] VITALS: BP 146/56
[2018-12-19 05:31] LABS: HEMATOCRIT 24.2 % (42.0-52.0); HEMOGLOBIN 7.6 G/DL (14.2-18.0); MEAN CORPUSCULAR VOLUME 85 FL (80-99); PLATELET COUNT 293 K/UL (150-450); RED BLOOD COUNT 2.86 M/UL (4.70-6.10); RED CELL DISTRIBUTION WIDTH 15.1 % (11.6-14.8); WHITE BLOOD COUNT 14.9 K/UL (4.8-10.8)
[2018-12-19] MEDS: Piperacillin/Tazobactam 3.375 GM in D5W 110 ML IV SCH ×3 (05:39→22:49)
[2018-12-19 05:45] LABS: ANION GAP 10 mmol/L (5-15); BLOOD UREA NITROGEN 21 mg/dL (7-18); CALCIUM 8.6 MG/DL (8.5-10.1); CARBON DIOXIDE 24 MMOL/L (21-32); CHLORIDE 99 MMOL/L (98-107); CREATININE 1.1 MG/DL (0.55-1.30); SODIUM 133 MMOL/L (136-145)
--- NOTE | 2018-12-19 06:51 | NUR ---
RESPIRATORY NOTE: Patient received mechanically ventilated on PB 840 with current ordered vent settings. Patient has trach size 8.0 Portex cuffed that is secured with trach tie and guard. There are bilateral coarse breath sounds noted upon auscultation. Small amount of thick clear and white secretions were suctioned via inline suction system without incident. Vent alarms are functional and audible. There is an ambu bag available at the bedside and the vent is connected to a red outlet. Patient appears comfortable at this time. Will continue to monitor.
--- NOTE | 2018-12-19 07:15 | NUR ---
HAND-OFF: Report given to ODILIA Jeffrey. No acute distress noted at this time.
--- NOTE | 2018-12-19 07:20 | NUR ---
NURSE NOTES: Patient received from Raymond Styles RN. Patient is in bed with call light in reach dn bed at its lowest position. Will continue to monitor.
[2018-12-19 08:00] VITALS: BP 132/74
[2018-12-19] MEDS: Fluconazole 100mg tab GT SCH (08:58)
[2018-12-19] MEDS: Heparin 5000 units/ml inj SUBQ SCH ×2 (08:59→20:42)
--- NOTE | 2018-12-19 09:51 | NUR ---
SALES AND SERVICE CONSULTANTOUTSIDE SALES REPRESENTATIVE SI:ANEMIA . ASPIRATION PNA VS: BP 146/56, P 93, T 99.0, RR 22, SpO2 100 on VENT AC 16, TV 600, PEEP 5.0, FiO2 35 WBC 14.9, RBC 2.86, Hgb 7.6, Hct 24.2, Na 133, BUN 21 IS: SYNTHROID 75mcg GT ZOSYN 110ml IV SUCRALFATE 1gm DIFLUCAN 200mg COLISTIN 150mg INH PREVACID 30mg GT SDU STATUS
--- NOTE | 2018-12-19 10:16 | Infectious Diseases Prog Note ---
Assessment/Plan Assessment/Plan Abx: IV Vancomycin 12/08- Cefepime 12/08- Levaquinx 1 12/08 Assessment: Leukocytosis; imrpoving- ?UTI -u/a wbc 5-10, nit n eg, leuk +3; ucx NTD -CXR: No acute process. Right basilar atelectasis -Sp cx 12/09/18 E.coli (ESBL), P.a. 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 diff Dysphagia s/p G-tube Anemia. CVA/TIA w/ hemiplegia functional quadriplegia chronic encephalopathy CAD CHF Dm2 GIB s/p multiple EGDs in the past hx of severe esophagitis [facility]ffective disease [facility] VRE colonization Plan: - Continue Zosyn #7, inhaled colistin #4 for MDR P.a.for sputum organism - Continue Fluconazole #4 for Yeast it the urine Additional P.a. Sensi pending. Im hesitant to start Amikacin given increased cr but if leukocytosis continues to increase it may be required. - f/u G tube drainage Cx - 12/12 S/P Vancomycin and Cefepime #5 -12/08 SP Levaquin x1 -11/06 SP Amikacin #6 -11/01 SP Meropenem #4 -10/29 SP IV Vanco #2, Cefepime #2 and Tigecycline #1 -10/28 SP LEavquin x1 -10/09 SP Ertapenem #5 - 10/04 SP Meropenem #2 -10/03/18 SP IV Vancomycin #2 and Cefepime #2 -08/09/ SP Bactrim #7 -08/03 SP Vancomycin and Cefepime #3 -08/01/18 SP Ceftriaxone x1 -Monitor CBC/CMP, temperatures -Peg/trach care -aspiration precautions Will continue to follow along with you. Subjective Allergies: Coded Allergies: NO KNOWN DRUG ALLERGIES (Verified Allergy, Unknown, 09/11/16) Subjective Afebrile Mild Leukocytosis continues Satting well on vent Drainage from g tube cultures yesterday Objective Vital Signs Last 24 Hour Vital Signs Date Time Temp Pulse Resp B/P (MAP) Pulse Ox O2 Delivery O2 Flow Rate FiO2 12/19/18 08:45 82 22 35 12/19/18 08:00 99.0 93 22 132/74 (93) 100 12/19/18 08:00 35 12/19/18 08:00 79 12/19/18 08:00 Mechanical Ventilator 12/19/18 06:45 93 18 35 12/19/18 05:28 89 22 35 12/19/18 04:10 92 12/19/18 04:00 35 12/19/18 04:00 Mechanical Ventilator 12/19/18 04:00 98.6 91 20 146/56 (86) 100 12/19/18 03:13 88 17 35 12/19/18 01:44 87 20 35 12/19/18 00:00 Mechanical Ventilator 12/19/18 00:00 35 12/19/18 00:00 98.4 86 18 136/73 (94) 100 12/18/18 23:27 80 12/18/18 23:16 80 17 35 12/18/18 21:48 79 16 100 Mechanical Ventilator 35 12/18/18 21:33 79 16 100 Mechanical Ventilator 35 12/18/18 21:30 79 16 35 12/18/18 20:00 Mechanical Ventilator 12/18/18 20:00 80 12/18/18 20:00 35 12/18/18 20:00 98.4 80 17 111/72 (85) 100 12/18/18 18:55 79 17 40 12/18/18 17:02 81 20 40 12/18/18 16:00 Mechanical Ventilator 12/18/18 16:00 40 12/18/18 16:00 98.4 80 18 131/69 (89) 100 12/18/18 16:00 88 12/18/18 15:17 80 17 40 12/18/18 15:17 80 17 Mechanical Ventilator 40 12/18/18 12:48 83 19 40 12/18/18 12:00 40 12/18/18 12:00 98.2 94 20 143/78 (99) 100 12/18/18 12:00 Mechanical Ventilator 12/18/18 12:00 82 12/18/18 10:50 93 20 100 Mechanical Ventilator 40 12/18/18 10:40 91 20 100 Mechanical Ventilator 40 12/18/18 10:38 91 20 40 Height (Feet): 5 Height (Inches): 10.00 Weight (Pounds): 142 Objective Gen: NAD, Satting well on vent. HEENT: NCAT, MMM, Trached on vent Lungs: CTAB Heart: RRR, S1, S2 Abdomen: soft, non-tender, G tube mild erythema around tube some drainage. Laboratory Tests Test 12/19/18 04:00 White Blood Count 14.9 K/UL (4.8-10.8) H Red Blood Count 2.86 M/UL (4.70-6.10) L Hemoglobin 7.6 G/DL (14.2-18.0) L Hematocrit 24.2 % (42.0-52.0) L Mean Corpuscular Volume 85 FL (80-99) Mean Corpuscular Hemoglobin 26.7 PG (27.0-31.0) L Mean Corpuscular Hemoglobin Concent 31.5 G/DL (32.0-36.0) L Red Cell Distribution Width 15.1 % (11.6-14.8) H Platelet Count 293 K/UL (150-450) Mean Platelet Volume 6.8 FL (6.5-10.1) Neutrophils (%) (Auto) % (45.0-75.0) Lymphocytes (%) (Auto) % (20.0-45.0) Monocytes (%) (Auto) % (1.0-10.0) Eosinophils (%) (Auto) % (0.0-3.0) Basophils (%) (Auto) % (0.0-2.0) Sodium Level 133 MMOL/L (136-145) L Potassium Level 4.0 MMOL/L (3.5-5.1) Chloride Level 99 MMOL/L (98-107) Carbon Dioxide Level 24 MMOL/L (21-32) Anion Gap 10 mmol/L (5-15) Blood Urea Nitrogen 21 mg/dL (7-18) H Creatinine 1.1 MG/DL (0.55-1.30) Estimat Glomerular Filtration Rate > 60 mL/min (>60) Glucose Level 136 MG/DL (74-106) H Calcium Level 8.6 MG/DL (8.5-10.1) Current Medications Medications (Trade) Dose Ordered Sig/Wanda Route PRN Reason Start Time Stop Time Status Last Admin Dose Admin Acetaminophen (Tylenol) 650 mg Q4H PRN GT Mild Pain/Temp > 100.5 12/15/18 10:45 01/14/19 10:44 12/16/18 18:24 Chlorhexidine Gluconate (Jasmin-Hex 2%) 1 applic DAILY@1999 TOPIC 12/11/18 20:00 01/10/19 19:59 12/18/18 20:37 Colistimethate Sodium (Colistin *inhalation use only*) 150 mg Q12HR@ INH 12/16/18 10:00 12/23/18 09:59 12/18/18 21:33 Dextrose (Dextrose 50%) 25 ml Q30M PRN IV Hypoglycemia 12/08/18 16:15 01/07/19 16:14 Dextrose (Dextrose 50%) 50 ml Q30M PRN IV hypoglycemia 12/08/18 16:15 01/07/19 16:14 Fluconazole (Diflucan) 200 mg DAILY GT 12/19/18 09:00 12/26/18 08:59 12/19/18 08:58 Heparin Sodium (Porcine) (Heparin 5000 units/ml) 5,000 units EVERY 12 HOURS SUBQ 12/08/18 21:00 01/07/19 20:59 12/18/18 20:38 Lansoprazole (Prevacid) 30 mg DAILY GT 12/18/18 09:00 01/17/19 08:59 12/19/18 08:52 Levothyroxine Sodium (Synthroid) 75 mcg Q24H GT 12/09/18 06:30 01/08/19 06:29 12/19/18 06:43 Ondansetron HCl (Zofran) 4 mg Q6H PRN IVP Nausea & Vomiting 12/08/18 16:00 01/07/19 15:59 Piperacillin Sod/ Tazobactam Sod 3.375 gm/Dextrose 110 ml @ 27.5 mls/hr EVERY 8 HOURS IV 12/12/18 14:00 12/21/18 13:59 12/19/18 05:39 Polyethylene Glycol (Miralax) 17 gm DAILYPRN PRN GT Constipation 12/15/18 10:45 01/07/19 15:59 Sucralfate (Carafate) 1 gm EVERY 6 HOURS GT 12/15/18 18:00 01/07/19 17:59 12/19/18 05:39 John Fiore MD Dec 19, 2018 10:16
--- NOTE | 2018-12-19 10:44 | Pulmonolgy Critical Care Note ---
Critical Care - Asmt/Plan Problems: (1) Respiratory failure, [id number] (2) Aspiration pneumonia (3) Severe sepsis (4) Anemia (5) Psychosis (6) Hypothyroidism (7) Severe protein-calorie malnutrition (8) Feeding by G-tube Respiratory: adjust tidal volume, monitor respiratory rate, adjust FIO2, CXR Cardiac: continue pressors, continue to monitor HR/BP Renal: F/U I&O, keep IV fluid, check electrolytes Infectious Disease: check cultures Gastrointestinal: continue feedings/current rate Endocrine: monitor blood sugar Hematologic: monitor H/H, transfuse if hgb<8.5 Neurologic: PRN Ativan, keep patient comfortable Prophylaxis: Protonix Time Spent (Minutes): 40 Notes Reviewed: cardio, 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 with: nurses, consultants, telehealth case managerbusiness unit manager - Objective Last 24 Hour Vital Signs Date Time Temp Pulse Resp B/P (MAP) Pulse Ox O2 Delivery O2 Flow Rate FiO2 12/19/18 08:45 82 22 35 12/19/18 08:00 99.0 93 22 132/74 (93) 100 12/19/18 08:00 35 12/19/18 08:00 79 12/19/18 08:00 Mechanical Ventilator 12/19/18 06:45 93 18 35 12/19/18 05:28 89 22 35 12/19/18 04:10 92 12/19/18 04:00 35 12/19/18 04:00 Mechanical Ventilator 12/19/18 04:00 98.6 91 20 146/56 (86) 100 12/19/18 03:13 88 17 35 12/19/18 01:44 87 20 35 12/19/18 00:00 Mechanical Ventilator 12/19/18 00:00 35 12/19/18 00:00 98.4 86 18 136/73 (94) 100 12/18/18 23:27 80 12/18/18 23:16 80 17 35 12/18/18 21:48 79 16 100 Mechanical Ventilator 35 12/18/18 21:33 79 16 100 Mechanical Ventilator 35 12/18/18 21:30 79 16 35 12/18/18 20:00 Mechanical Ventilator 12/18/18 20:00 80 12/18/18 20:00 35 12/18/18 20:00 98.4 80 17 111/72 (85) 100 12/18/18 18:55 79 17 40 12/18/18 17:02 81 20 40 12/18/18 16:00 Mechanical Ventilator 12/18/18 16:00 40 12/18/18 16:00 98.4 80 18 131/69 (89) 100 12/18/18 16:00 88 12/18/18 15:17 80 17 40 12/18/18 15:17 80 17 Mechanical Ventilator 40 12/18/18 12:48 83 19 40 12/18/18 12:00 40 12/18/18 12:00 98.2 94 20 143/78 (99) 100 12/18/18 12:00 Mechanical Ventilator 12/18/18 12:00 82 12/18/18 10:50 93 20 100 Mechanical Ventilator 40 Status: awake Condition: critical HEENT: atraumatic Neck: full ROM Lungs: rales, rhonchi Heart: HR/BP stable Abdomen: soft, non-tender Extremities: no C/C/E, edema Critical Care - Subjective ROS Limited/Unobtainable: No Condition: critical EKG Rhythm: Sinus Rhythm FI02: 35 Vent Support Breath Rate: 16 Vent Support Mode: AC Vent Tidal Volume: 600 Sputum Amount: Small PEEP: 5.0 PIP: 24 Tube Feeding Amount: 0 I&O: Intake and Output 12/18/18 12/19/18 19:00 07:00 Intake Total 980.0 ml 790.0 ml Output Total 550 ml 550 ml Balance 430.0 ml 240.0 ml Intake Free Water 150 ml 140 ml IV Total 110.0 ml 110.0 ml Tube Feeding 720 ml 540 ml Output Urine Total 550 ml 550 ml # Bowel Movements 1 1 CXR: no change Labs: Laboratory Tests Test 12/19/18 04:00 White Blood Count 14.9 K/UL (4.8-10.8) H Red Blood Count 2.86 M/UL (4.70-6.10) L Hemoglobin 7.6 G/DL (14.2-18.0) L Hematocrit 24.2 % (42.0-52.0) L Mean Corpuscular Volume 85 FL (80-99) Mean Corpuscular Hemoglobin 26.7 PG (27.0-31.0) L Mean Corpuscular Hemoglobin Concent 31.5 G/DL (32.0-36.0) L Red Cell Distribution Width 15.1 % (11.6-14.8) H Platelet Count 293 K/UL (150-450) Mean Platelet Volume 6.8 FL (6.5-10.1) Neutrophils (%) (Auto) % (45.0-75.0) Lymphocytes (%) (Auto) % (20.0-45.0) Monocytes (%) (Auto) % (1.0-10.0) Eosinophils (%) (Auto) % (0.0-3.0) Basophils (%) (Auto) % (0.0-2.0) Sodium Level 133 MMOL/L (136-145) L Potassium Level 4.0 MMOL/L (3.5-5.1) Chloride Level 99 MMOL/L (98-107) Carbon Dioxide Level 24 MMOL/L (21-32) Anion Gap 10 mmol/L (5-15) Blood Urea Nitrogen 21 mg/dL (7-18) H Creatinine 1.1 MG/DL (0.55-1.30) Estimat Glomerular Filtration Rate > 60 mL/min (>60) Glucose Level 136 MG/DL (74-106) H Calcium Level 8.6 MG/DL (8.5-10.1) Huma Keating MD Dec 19, 2018 10:44
--- NOTE | 2018-12-19 10:45 | General Progress Note ---
Progress Note Progress Note Pt needs blood transfusion. He can not sign for any consents. He doesn't have any family members to take care of him. Huma Keating MD Dec 19, 2018 10:45
[2018-12-19] MEDS: Colistin for inhalation INH SCH ×2 (10:47→21:40)
[2018-12-19 12:00] VITALS: BP 134/75
--- NOTE | 2018-12-19 15:04 | NUR ---
RD ASSESSMENT & RECOMMENDATIONS SEE CARE ACTIVITY FOR COMPLETE ASSESSMENT DAILY ESTIMATED NEEDS: Needs based on Critical care, underweight, wound TF [employer] 56.8kg 30-35 kcals/kg 2575-9529 total kcals 1.25-2 g protein/kg 71-114 g total protein 25-30 mL/kg 1477-1487 total fluid mLs NUTRITION DIAGNOSIS: Swallowing difficulty R/T respiratory status as evidenced by pt vent dep via trach, PEG dep. CURRENT TF:Osmolite 1.5 @ 60ml/hr x 22 hrs ENTERAL NUTRITION RECOMMENDATIONS: Osmolite 1.5 @ 60ml/hr x 22 hrs to provide 1320ml, 1980kcal, 83g prot, 1006ml free water * Continue current TF * HOLD TF 1h before and 1 after Synthroid administration. * Flush per MD/ HOB over 30 degrees ADDITIONAL RECOMMENDATIONS: * Calibrated bedscale weight for accurate CBW, weekly wt monitoring * Monitor need for TF change and/or accucheck w/ SSI - h/o DM + hyperglycemia * Monitor lytes w/ TF, replete as needed * Wound care: add JOYCELYN UNFLAVORED BID via GT
--- NOTE | 2018-12-19 15:28 | NUR ---
*-*INSURANCE *-* UPDATED CLINICALS & REVIEW HAVE BEEN FAXED TO: [facility]: JOSE Soares P- [phone] F- [phone]...REVIEW/CLINICAL
[2018-12-19 16:00] VITALS: BP 124/67
--- NOTE | 2018-12-19 19:00 | NUR ---
HAND-OFF: Report given to Amparo Garcia RN. Patient is running blood transfusion, no adverse reactions noted.
--- NOTE | 2018-12-19 19:05 | NUR ---
NURSE NOTES: BEDSIDE REPORT FROM ODILIA ROSE. PT IS BEDBOUND, OPENS EYES SPONTANEOUSLY, AND WITHDRAWS TO PAIN. DIRECTOR OF PAYROLL SHOWING NSR. VENTILATOR SETTINGS: PORTEX 8, AC 16, TV 600, FIO2 35%, PEEP; TOLERATING WELL5. CGT RUNNING OSMOLYTE 1.5 @ 60; LOW RESIDUAL. SKIN IS CLEAN, DRY, DRESSINGS INTACT. CONDOM CATH INTACT, DRAINING. PRASHANTH PICC; ASYMPTOMATIC. BED IS LOCKED IN LOWEST POSITION, SIDERAILS X3, SZ PRECAUTIONS CONTINUED, CALL AYALA W/ IN REACH, BED ALARM ON. WILL CONTINUE TO MONITOR AND FOLLOW PLAN OF CARE.
--- NOTE | 2018-12-19 19:17 | NUR ---
RESPIRATORY NOTE: Received pt on AC 16, 600VT, 35%, PEEP +5. Pt trach-dependent w/ a cuffed, Portex 8 tube. Pt asleep/disoriented, responds to stimuli. B/S nora. rhonchi, sxn small to moderate amounts of thick/thin, clear-white secretions. Vent plugged into red outlet, ambubag & spare trach kit at bedside. Pt resting comfortably, in no apparent distress at this time. Will continue plan of care.
[2018-12-19 20:00] VITALS: BP 126/60
[2018-12-19] MEDS: Dyna-Hex 2% Top Sol 2oz TOPIC SCH (20:38)
--- NOTE | 2018-12-19 21:53 | General Progress Note ---
Assessment/Plan Problem List: (1) Severe protein-calorie malnutrition ICD Codes: E43 - Unspecified severe protein-calorie malnutrition SNOMED: 398372255 (2) Feeding by G-tube ICD Codes: Z93.1 - Gastrostomy status SNOMED: 614239213, 143434572 (3) Anemia ICD Codes: D64.9 - Anemia, unspecified SNOMED: 273577413 (4) Chronic respiratory failure ICD Codes: J96.10 - Chronic respiratory failure, unspecified whether with hypoxia or hypercapnia SNOMED: 46063008 (5) Esophagitis ICD Codes: K20.9 - Esophagitis SNOMED: 09111110 (6) Hypothyroidism ICD Codes: E03.9 - Hypothyroidism, unspecified SNOMED: 45873078 (7) Aspiration pneumonia ICD Codes: J69.0 - Pneumonitis due to inhalation of food and vomit SNOMED: 752633225 (8) Leukocytosis ICD Codes: D72.829 - Elevated white blood cell count, unspecified SNOMED: 890983294, 370132711 Qualifiers: Qualified Codes: D72.828 - Other elevated white blood cell count (9) Contracture of multiple joints ICD Codes: M24.50 - Contracture, unspecified joint SNOMED: 30949787, 432467620 Status: progressing Assessment/Plan transfusion for anemia gerd pna resp insuff reviewed chart and labs Subjective ROS Limited/Unobtainable: Yes Allergies: Coded Allergies: NO KNOWN DRUG ALLERGIES (Verified Allergy, Unknown, 09/11/16) Objective Last 24 Hour Vital Signs Date Time Temp Pulse Resp B/P (MAP) Pulse Ox O2 Delivery O2 Flow Rate FiO2 12/19/18 21:35 94 19 100 Mechanical Ventilator 35 12/19/18 21:30 94 19 35 12/19/18 20:00 Mechanical Ventilator 12/19/18 20:00 35 12/19/18 20:00 99 12/19/18 20:00 98.8 101 18 126/60 (82) 100 12/19/18 19:15 98 19 35 12/19/18 17:14 86 16 35 12/19/18 16:00 99.3 85 17 124/67 (86) 100 12/19/18 16:00 35 12/19/18 16:00 Mechanical Ventilator 12/19/18 15:04 79 12/19/18 15:03 79 22 35 12/19/18 12:44 91 26 35 12/19/18 12:00 35 12/19/18 12:00 Mechanical Ventilator 12/19/18 12:00 98.4 88 19 134/75 (94) 100 12/19/18 11:47 81 12/19/18 10:57 88 19 100 Mechanical Ventilator 35 12/19/18 10:47 86 19 100 Mechanical Ventilator 35 12/19/18 10:41 86 19 35 12/19/18 08:45 82 22 35 12/19/18 08:00 99.0 93 22 132/74 (93) 100 12/19/18 08:00 35 12/19/18 08:00 79 12/19/18 08:00 Mechanical Ventilator 12/19/18 06:45 93 18 35 12/19/18 05:28 89 22 35 12/19/18 04:10 92 12/19/18 04:00 35 12/19/18 04:00 Mechanical Ventilator 12/19/18 04:00 98.6 91 20 146/56 (86) 100 12/19/18 03:13 88 17 35 12/19/18 01:44 87 20 35 12/19/18 00:00 Mechanical Ventilator 12/19/18 00:00 35 12/19/18 00:00 98.4 86 18 136/73 (94) 100 12/18/18 23:27 80 12/18/18 23:16 80 17 35 Intake and Output 12/18/18 12/19/18 19:00 07:00 Intake Total 980.0 ml 790.0 ml Output Total 550 ml 550 ml Balance 430.0 ml 240.0 ml Intake Free Water 150 ml 140 ml IV Total 110.0 ml 110.0 ml Tube Feeding 720 ml 540 ml Output Urine Total 550 ml 550 ml # Bowel Movements 1 1 Laboratory Tests 12/19/18 04:00: White Blood Count 14.9H, Red Blood Count 2.86L, Hemoglobin 7.6L, Hematocrit 24.2L, Mean Corpuscular Volume 85, Mean Corpuscular Hemoglobin 26.7L, Mean Corpuscular Hemoglobin Concent 31.5L, Red Cell Distribution Width 15.1H, Platelet Count 293, Mean Platelet Volume 6.8, Neutrophils (%) (Auto) , Lymphocytes (%) (Auto) , Monocytes (%) (Auto) , Eosinophils (%) (Auto) , Basophils (%) (Auto) , Sodium Level 133L, Potassium Level 4.0, Chloride Level 99 , Carbon Dioxide Level 24, Anion Gap 10, Blood Urea Nitrogen 21H, Creatinine 1.1 , Estimat Glomerular Filtration Rate > 60, Glucose Level 136H, Calcium Level 8.6 Height (Feet): 5 Height (Inches): 10.00 Weight (Pounds): 142 Neck: supple Cardiovascular: normal rate Respiratory/Chest: lungs clear Sven Johns MD Dec 19, 2018 21:53
[2018-12-20] VITALS: BP 132/82
[2018-12-20 04:00] VITALS: BP 127/70
[2018-12-20 05:00] LABS: BASOPHILS % (AUTO) 0.7 % (0.0-2.0); EOSINOPHILS % (AUTO) 4.3 % (0.0-3.0); HEMATOCRIT 27.6 % (42.0-52.0); LYMPHOCYTES % (AUTO) 9.9 % (20.0-45.0); MEAN CORPUSCULAR VOLUME 85 FL (80-99); MONOCYTES % (AUTO) 10.8 % (1.0-10.0); NEUTROPHILS % (AUTO) 74.3 % (45.0-75.0); PLATELET COUNT 294 K/UL (150-450); RED BLOOD COUNT 3.25 M/UL (4.70-6.10); RED CELL DISTRIBUTION WIDTH 14.5 % (11.6-14.8); WHITE BLOOD COUNT 14.1 K/UL (4.8-10.8)
[2018-12-20 05:15] LABS: ALANINE AMINOTRANSFERASE 13 U/L (12-78); ALBUMIN 2.2 G/DL (3.4-5.0); ALBUMIN/GLOBULIN RATIO 0.4 (1.0-2.7); ALKALINE PHOSPHATASE 83 U/L (46-116); ANION GAP 10 mmol/L (5-15); ASPARTATE AMINO TRANSFERASE 8 U/L (15-37); BILIRUBIN,TOTAL 0.2 MG/DL (0.2-1.0); BLOOD UREA NITROGEN 20 mg/dL (7-18); CALCIUM 8.7 MG/DL (8.5-10.1); CARBON DIOXIDE 24 MMOL/L (21-32); CHLORIDE 98 MMOL/L (98-107); CREATININE 1.1 MG/DL (0.55-1.30); PHOSPHORUS 1.6 MG/DL (2.5-4.9); POTASSIUM 3.8 MMOL/L (3.5-5.1); SODIUM 132 MMOL/L (136-145)
[2018-12-20] MEDS: Piperacillin/Tazobactam 3.375 GM in D5W 110 ML IV SCH ×3 (05:41→21:35)
[2018-12-20] MEDS: Sucralfate 1gm tab GT SCH ×4 (05:43→23:38)
--- NOTE | 2018-12-20 06:34 | NUR ---
RESPIRATORY NOTE: Received pt on AC 16,600ml,35%, PEEP +5. Pt trach dependent cuffed, Portex size 8.0, secured by trach tie and trach guard . Pt is asleep/ disoriented, unable to follow simple commands, responds to stimuli. B/S nora. rhonchi, sxn small amounts of thick/ thin clear/ white secretions without incidents. Vent plugged into red outlet, ambu bag at bedside, alarms are set and audible. Vent circuits and sxn tube are secured and out of the way. Pt is in no apparent distress. Will continue to monitor pt.
--- NOTE | 2018-12-20 07:32 | NUR ---
NURSE NOTES: Received Patient from Temi Christensen RN. Patient is in bed with no signs of distress. Bed at its lowest position and call light in reach.
[2018-12-20 08:00] VITALS: BP 119/61
--- NOTE | 2018-12-20 08:49 | Infectious Diseases Prog Note ---
Assessment/Plan Assessment/Plan Abx: IV Vancomycin 12/08- Cefepime 12/08- Levaquinx 1 12/08 Assessment: Leukocytosis; imrpoving- ?UTI -u/a wbc 5-10, nit n eg, leuk +3; ucx NTD -CXR: No acute process. Right basilar atelectasis -Sp cx 12/09/18 E.coli (ESBL), P.a. 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 diff Dysphagia s/p G-tube Anemia. CVA/TIA w/ hemiplegia functional quadriplegia chronic encephalopathy CAD CHF Dm2 GIB s/p multiple EGDs in the past hx of severe esophagitis schizoaffective disease detention resident multiple admissions VRE colonization Plan: - Continue Zosyn #/-14, inhaled colistin #5/ for MDR P.a.for sputum organism - Continue Fluconazole #/ for Yeast it the urine Additional P.a. Sensi pending. Im hesitant to start Amikacin given increased cr but if leukocytosis continues to increase it may be required. - f/u G tube drainage Cx - 12/12 S/P Vancomycin and Cefepime #5 -12/08 SP Levaquin x1 -11/06 SP Amikacin #6 -11/01 SP Meropenem #4 -10/29 SP IV Vanco #2, Cefepime #2 and Tigecycline #1 -10/28 SP LEavquin x1 -10/09 SP Ertapenem #5 - 10/04 SP Meropenem #2 -10/03/18 SP IV Vancomycin #2 and Cefepime #2 -08/09/18 SP Bactrim #7 -08/03 SP Vancomycin and Cefepime #3 -08/01/18 SP Ceftriaxone x1 -Monitor CBC/CMP, temperatures -Peg/trach care -aspiration precautions Will continue to follow along with you. Subjective Allergies: Coded Allergies: NO KNOWN DRUG ALLERGIES (Verified Allergy, Unknown, 09/11/16) Subjective Afebrile Mild Leukocytosis improved Satting well on vent Objective Vital Signs Last 24 Hour Vital Signs Date Time Temp Pulse Resp B/P (MAP) Pulse Ox O2 Delivery O2 Flow Rate FiO2 12/20/18 08:00 35 12/20/18 08:00 99.0 89 20 119/61 (80) 100 12/20/18 08:00 Mechanical Ventilator 12/20/18 06:34 88 20 35 12/20/18 05:24 88 17 35 12/20/18 04:00 Mechanical Ventilator 12/20/18 04:00 104 12/20/18 04:00 35 12/20/18 04:00 98.6 88 17 127/70 (89) 100 12/20/18 03:25 89 17 35 12/20/18 01:04 80 18 35 12/20/18 00:00 Mechanical Ventilator 12/20/18 00:00 35 12/20/18 00:00 85 12/20/18 00:00 98.9 85 17 132/82 (99) 100 12/19/18 23:28 83 16 35 12/19/18 21:50 89 16 100 Mechanical Ventilator 35 12/19/18 21:35 94 19 100 Mechanical Ventilator 35 12/19/18 21:30 94 19 35 12/19/18 20:00 Mechanical Ventilator 12/19/18 20:00 35 12/19/18 20:00 99 12/19/18 20:00 98.8 101 18 126/60 (82) 100 12/19/18 19:15 98 19 35 12/19/18 17:14 86 16 35 12/19/18 16:00 99.3 85 17 124/67 (86) 100 12/19/18 16:00 35 12/19/18 16:00 Mechanical Ventilator 12/19/18 15:04 79 12/19/18 15:03 79 22 35 12/19/18 12:44 91 26 35 12/19/18 12:00 35 12/19/18 12:00 Mechanical Ventilator 12/19/18 12:00 98.4 88 19 134/75 (94) 100 12/19/18 11:47 81 12/19/18 10:57 88 19 100 Mechanical Ventilator 35 12/19/18 10:47 86 19 100 Mechanical Ventilator 35 12/19/18 10:41 86 19 35 Height (Feet): 5 Height (Inches): 10.00 Weight (Pounds): 142 Objective Gen: NAD HEENT: NCAT, MMM, Trached on vent Lungs: CTAB Heart: RRR, S1, S2 Abdomen: soft, non-tender, G tube mild erythema around tube some drainage. Microbiology Date/Time Source Procedure Growth Status 12/18/18 14:30 Body Fluid Drainage Gram Stain - Final Resulted 12/18/18 14:30 Aerobic Culture - Preliminary Gram Negative Bacillus 1 Resulted Laboratory Tests Test 12/20/18 04:00 White Blood Count 14.1 K/UL (4.8-10.8) H Red Blood Count 3.25 M/UL (4.70-6.10) L Hemoglobin 9.0 G/DL (14.2-18.0) L Hematocrit 27.6 % (42.0-52.0) L Mean Corpuscular Volume 85 FL (80-99) Mean Corpuscular Hemoglobin 27.7 PG (27.0-31.0) Mean Corpuscular Hemoglobin Concent 32.6 G/DL (32.0-36.0) Red Cell Distribution Width 14.5 % (11.6-14.8) Platelet Count 294 K/UL (150-450) Mean Platelet Volume 7.0 FL (6.5-10.1) Neutrophils (%) (Auto) 74.3 % (45.0-75.0) Lymphocytes (%) (Auto) 9.9 % (20.0-45.0) L Monocytes (%) (Auto) 10.8 % (1.0-10.0) H Eosinophils (%) (Auto) 4.3 % (0.0-3.0) H Basophils (%) (Auto) 0.7 % (0.0-2.0) Sodium Level 132 MMOL/L (136-145) L Potassium Level 3.8 MMOL/L (3.5-5.1) Chloride Level 98 MMOL/L (98-107) Carbon Dioxide Level 24 MMOL/L (21-32) Anion Gap 10 mmol/L (5-15) Blood Urea Nitrogen 20 mg/dL (7-18) H Creatinine 1.1 MG/DL (0.55-1.30) Estimat Glomerular Filtration Rate > 60 mL/min (>60) Glucose Level 153 MG/DL (74-106) H Calcium Level 8.7 MG/DL (8.5-10.1) Phosphorus Level 1.6 MG/DL (2.5-4.9) L Magnesium Level 1.8 MG/DL (1.8-2.4) Total Bilirubin 0.2 MG/DL (0.2-1.0) Aspartate Amino Transf (AST/SGOT) 8 U/L (15-37) L Alanine Aminotransferase (ALT/SGPT) 13 U/L (12-78) Alkaline Phosphatase 83 U/L (46-116) Total Protein 7.2 G/DL (6.4-8.2) Albumin 2.2 G/DL (3.4-5.0) L Globulin 5.0 g/dL Albumin/Globulin Ratio 0.4 (1.0-2.7) L Current Medications Medications (Trade) Dose Ordered Sig/Wanda Route PRN Reason Start Time Stop Time Status Last Admin Dose Admin Acetaminophen (Tylenol) 650 mg Q4H PRN GT Mild Pain/Temp > 100.5 12/15/18 10:45 01/14/19 10:44 12/16/18 18:24 Chlorhexidine Gluconate (Jasmin-Hex 2%) 1 applic DAILY@1999 TOPIC 12/11/18 20:00 01/10/19 19:59 12/19/18 20:38 Colistimethate Sodium (Colistin *inhalation use only*) 150 mg Q12HR@10,22 INH 12/16/18 10:00 12/23/18 09:59 12/19/18 21:40 Dextrose (Dextrose 50%) 25 ml Q30M PRN IV Hypoglycemia 12/08/18 16:15 01/07/19 16:14 Dextrose (Dextrose 50%) 50 ml Q30M PRN IV hypoglycemia 12/08/18 16:15 01/07/19 16:14 Fluconazole (Diflucan) 200 mg DAILY GT 12/19/18 09:00 12/26/18 08:59 12/19/18 08:58 Heparin Sodium (Porcine) (Heparin 5000 units/ml) 5,000 units EVERY 12 HOURS SUBQ 12/08/18 21:00 01/07/19 20:59 12/19/18 20:42 Lansoprazole (Prevacid) 30 mg DAILY GT 12/18/18 09:00 01/17/19 08:59 12/19/18 08:52 Levothyroxine Sodium (Synthroid) 75 mcg Q24H GT 12/09/18 06:30 01/08/19 06:29 12/20/18 05:43 Ondansetron HCl (Zofran) 4 mg Q6H PRN IVP Nausea & Vomiting 12/08/18 16:00 01/07/19 15:59 Piperacillin Sod/ Tazobactam Sod 3.375 gm/Dextrose 110 ml @ 27.5 mls/hr EVERY 8 HOURS IV 12/12/18 14:00 12/21/18 13:59 12/20/18 05:41 Polyethylene Glycol (Miralax) 17 gm DAILYPRN PRN GT Constipation 12/15/18 10:45 01/07/19 15:59 Sucralfate (Carafate) 1 gm EVERY 6 HOURS GT 12/15/18 18:00 01/07/19 17:59 12/20/18 05:43 John Fiore MD Dec 20, 2018 08:49
[2018-12-20] MEDS: Fluconazole 100mg tab GT SCH (09:23)
[2018-12-20] MEDS: Heparin 5000 units/ml inj SUBQ SCH ×2 (09:28→20:22)
[2018-12-20] MEDS: Colistin for inhalation INH SCH ×2 (09:38→21:02)
--- NOTE | 2018-12-20 10:10 | NUR ---
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 ASPIRATION PNA VS: BP 119/61, P 90, T 99.0, RR 16, SpO2 100 on VENT AC 16, TV 600, PEEP 5.0 FiO2 35 WBC 14.1, RBC 3.25, Hgb 9.0, Hct 27.6, Na 132, BUN 20 IS: DIFLUCAN 200mg GT PREVACID 30mg GT COLISTIN 150mg INH SUCRALFATE 1gm GT ZOSYN 110ml IV SYNTHROID 75mcg GT HEPARIN SUBQ SDU STATUS
--- NOTE | 2018-12-20 10:54 | Pulmonolgy Critical Care Note ---
Critical Care - Asmt/Plan Problems: (1) Respiratory failure, [id number] (2) Aspiration pneumonia (3) Severe sepsis (4) Anemia (5) Psychosis (6) Hypothyroidism (7) Severe protein-calorie malnutrition (8) Feeding by G-tube Respiratory: monitor respiratory rate, adjust FIO2, CXR Cardiac: continue to monitor HR/BP Renal: F/U I&O, keep IV fluid Infectious Disease: continue antibiotics, add antibiotics Gastrointestinal: continue feedings/current rate, hold feedings Endocrine: check TSH Hematologic: transfuse if hgb<8.5 Neurologic: PRN Ativan, keep patient comfortable Affect: PRN ativan Prophylaxis: Heparin Time Spent (Minutes): 30 Notes Reviewed: cardio, 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 with: nurses, consultants, case assistantescrow manager - Objective Last 24 Hour Vital Signs Date Time Temp Pulse Resp B/P (MAP) Pulse Ox O2 Delivery O2 Flow Rate FiO2 12/20/18 09:50 89 16 100 Mechanical Ventilator 35 12/20/18 09:39 96 18 100 Mechanical Ventilator 35 12/20/18 09:29 90 18 35 12/20/18 08:00 35 12/20/18 08:00 99.0 89 20 119/61 (80) 100 12/20/18 08:00 Mechanical Ventilator 12/20/18 07:33 87 12/20/18 06:34 88 20 35 12/20/18 05:24 88 17 35 12/20/18 04:00 Mechanical Ventilator 12/20/18 04:00 104 12/20/18 04:00 35 12/20/18 04:00 98.6 88 17 127/70 (89) 100 12/20/18 03:25 89 17 35 12/20/18 01:04 80 18 35 12/20/18 00:00 Mechanical Ventilator 12/20/18 00:00 35 12/20/18 00:00 85 12/20/18 00:00 98.9 85 17 132/82 (99) 100 12/19/18 23:28 83 16 35 12/19/18 21:50 89 16 100 Mechanical Ventilator 35 12/19/18 21:35 94 19 100 Mechanical Ventilator 35 12/19/18 21:30 94 19 35 12/19/18 20:00 Mechanical Ventilator 12/19/18 20:00 35 12/19/18 20:00 99 12/19/18 20:00 98.8 101 18 126/60 (82) 100 12/19/18 19:15 98 19 35 12/19/18 17:14 86 16 35 12/19/18 16:00 99.3 85 17 124/67 (86) 100 12/19/18 16:00 35 12/19/18 16:00 Mechanical Ventilator 12/19/18 15:04 79 12/19/18 15:03 79 22 35 12/19/18 12:44 91 26 35 12/19/18 12:00 35 12/19/18 12:00 Mechanical Ventilator 12/19/18 12:00 98.4 88 19 134/75 (94) 100 12/19/18 11:47 81 12/19/18 10:57 88 19 100 Mechanical Ventilator 35 Status: somnolent Condition: critical, grave Neck: full ROM Lungs: chest wall tender Heart: HR/BP unstable Abdomen: feeding tube Extremities: no C/C/E, edema Micro: Microbiology Date/Time Source Procedure Growth Status 12/18/18 14:30 Body Fluid Drainage Gram Stain - Final Resulted 12/18/18 14:30 Aerobic Culture - Preliminary Gram Negative Bacillus 1 Resulted Critical Care - Subjective ROS Limited/Unobtainable: Yes FI02: 35 Vent Support Breath Rate: 16 Vent Support Mode: AC Vent Tidal Volume: 600 Sputum Amount: Moderate PEEP: 5.0 PIP: 29 Tube Feeding Amount: 60 I&O: Intake and Output 12/19/18 12/20/18 19:00 07:00 Intake Total 1090.0 ml 860.0 ml Output Total 500 ml 1000 ml Balance 590.0 ml -140.0 ml Intake Free Water 90 ml IV Total 220.0 ml 110.0 ml Tube Feeding 720 ml 660 ml Other 150 ml Output Urine Total 500 ml 1000 ml # Bowel Movements 1 1 Labs: Laboratory Tests Test 12/20/18 04:00 White Blood Count 14.1 K/UL (4.8-10.8) H Red Blood Count 3.25 M/UL (4.70-6.10) L Hemoglobin 9.0 G/DL (14.2-18.0) L Hematocrit 27.6 % (42.0-52.0) L Mean Corpuscular Volume 85 FL (80-99) Mean Corpuscular Hemoglobin 27.7 PG (27.0-31.0) Mean Corpuscular Hemoglobin Concent 32.6 G/DL (32.0-36.0) Red Cell Distribution Width 14.5 % (11.6-14.8) Platelet Count 294 K/UL (150-450) Mean Platelet Volume 7.0 FL (6.5-10.1) Neutrophils (%) (Auto) 74.3 % (45.0-75.0) Lymphocytes (%) (Auto) 9.9 % (20.0-45.0) L Monocytes (%) (Auto) 10.8 % (1.0-10.0) H Eosinophils (%) (Auto) 4.3 % (0.0-3.0) H Basophils (%) (Auto) 0.7 % (0.0-2.0) Sodium Level 132 MMOL/L (136-145) L Potassium Level 3.8 MMOL/L (3.5-5.1) Chloride Level 98 MMOL/L (98-107) Carbon Dioxide Level 24 MMOL/L (21-32) Anion Gap 10 mmol/L (5-15) Blood Urea Nitrogen 20 mg/dL (7-18) H Creatinine 1.1 MG/DL (0.55-1.30) Estimat Glomerular Filtration Rate > 60 mL/min (>60) Glucose Level 153 MG/DL (74-106) H Calcium Level 8.7 MG/DL (8.5-10.1) Phosphorus Level 1.6 MG/DL (2.5-4.9) L Magnesium Level 1.8 MG/DL (1.8-2.4) Total Bilirubin 0.2 MG/DL (0.2-1.0) Aspartate Amino Transf (AST/SGOT) 8 U/L (15-37) L Alanine Aminotransferase (ALT/SGPT) 13 U/L (12-78) Alkaline Phosphatase 83 U/L (46-116) Total Protein 7.2 G/DL (6.4-8.2) Albumin 2.2 G/DL (3.4-5.0) L Globulin 5.0 g/dL Albumin/Globulin Ratio 0.4 (1.0-2.7) L Huma Keating MD Dec 20, 2018 10:54
[2018-12-20 12:00] VITALS: BP 124/69
--- NOTE | 2018-12-20 15:34 | NUR ---
*-*INSURANCE *-* UPDATED CLINICALS & REVIEW HAVE BEEN FAXED TO: [facility]: JOSE Soares P- [phone] F- [phone]...REVIEW/CLINICAL
[2018-12-20 16:00] VITALS: BP 115/76
[2018-12-20] MEDS ORDERED: NS 275ml ONE (16:09)
[2018-12-20] MEDS ORDERED: Tubing Blood Filter IV ONE (16:09)
[2018-12-20] MEDS ORDERED: Tubing IV Secondary IV ONE (16:09)
--- NOTE | 2018-12-20 19:05 | NUR ---
HAND-OFF: Report given to Tamara Montalvo RN.
--- NOTE | 2018-12-20 19:15 | NUR ---
NURSE NOTES: Received report from Rachele HARTLEY, pt. is in bed obtunded, eyes open, non-verbal, no signs or symptoms of acute cardiac or respiratory distress noted, cardiac monitoring on- pt. is sinus rhythm on monitor, pt. appears to be resting comfortably, pt. is clean and dry and dressings also dry and intact, bed in lowest position and call light within easy reach, bed alarm on, side rails up x's3 and safety brakes engaged, pt. appears to be tolerating current vent settings well- AC 16, TV 600, Fio2 @35%, PEEP 5- NO DISTRESS NOTED at time of assessment, all needs attended to, Osmolite 1.5 running at 60cc/hr- no residual noted- via G-tube, Condom cath intact and draining to gravity, PRASHANTH PICC intact and patent- TKO, side rails padded for seizure precautions- no seizure activity noted, safety measures continued, will continue to monitor pt. and with plan of care.
--- NOTE | 2018-12-20 19:30 | NUR ---
RESPIRATORY NOTE: Received pt on AC 16 600 35% +5. Pt s trach dependent with a cuffed portex 8. Suction with no complication, small to moderate amount of white yellow thick and thin secretions. Breath sounds rhonchi bilateral. Trach is patent and secure. Alarms are on and audile. Vent is plugged to red outlet. Will continue to monitor.
[2018-12-20 20:00] VITALS: BP 120/78
[2018-12-20] MEDS: Dyna-Hex 2% Top Sol 2oz TOPIC SCH (20:19)
--- NOTE | 2018-12-20 21:22 | General Progress Note ---
Assessment/Plan Problem List: (1) Severe protein-calorie malnutrition ICD Codes: E43 - Unspecified severe protein-calorie malnutrition SNOMED: 876188210 (2) Feeding by G-tube ICD Codes: Z93.1 - Gastrostomy status SNOMED: 185297342, 522151670 (3) Anemia ICD Codes: D64.9 - Anemia, unspecified SNOMED: 288096847 (4) Chronic respiratory failure ICD Codes: J96.10 - Chronic respiratory failure, unspecified whether with hypoxia or hypercapnia SNOMED: 71635146 (5) Esophagitis ICD Codes: K20.9 - Esophagitis SNOMED: 49447215 (6) Hypothyroidism ICD Codes: E03.9 - Hypothyroidism, unspecified SNOMED: 23204001 (7) Aspiration pneumonia ICD Codes: J69.0 - Pneumonitis due to inhalation of food and vomit SNOMED: 741345410 (8) Leukocytosis ICD Codes: D72.829 - Elevated white blood cell count, unspecified SNOMED: 119471641, 399998963 Qualifiers: Qualified Codes: D72.828 - Other elevated white blood cell count (9) Contracture of multiple joints ICD Codes: M24.50 - Contracture, unspecified joint SNOMED: 17126614, 784325706 Status: progressing Assessment/Plan transfusion for anemia gerd pna resp insuff hypothroid vitals stable reviewed chart and labs and meds Subjective ROS Limited/Unobtainable: Yes Allergies: Coded Allergies: NO KNOWN DRUG ALLERGIES (Verified Allergy, Unknown, 09/11/16) Objective Last 24 Hour Vital Signs Date Time Temp Pulse Resp B/P (MAP) Pulse Ox O2 Delivery O2 Flow Rate FiO2 12/20/18 21:02 94 18 35 12/20/18 21:02 94 18 100 Mechanical Ventilator 35 12/20/18 20:00 99.1 96 17 120/78 (92) 98 12/20/18 20:00 97 12/20/18 20:00 35 12/20/18 20:00 Mechanical Ventilator 12/20/18 19:28 95 18 35 12/20/18 17:28 105 23 35 12/20/18 16:00 35 12/20/18 16:00 99.0 101 18 115/76 (89) 99 12/20/18 16:00 Mechanical Ventilator 12/20/18 15:32 103 12/20/18 14:50 101 19 35 12/20/18 12:34 96 21 35 12/20/18 12:00 Mechanical Ventilator 12/20/18 12:00 87 12/20/18 12:00 35 12/20/18 12:00 99.9 96 22 124/69 (87) 99 12/20/18 10:56 90 17 35 12/20/18 09:50 89 16 100 Mechanical Ventilator 35 12/20/18 09:39 96 18 100 Mechanical Ventilator 35 12/20/18 09:29 90 18 35 12/20/18 08:00 35 12/20/18 08:00 99.0 89 20 119/61 (80) 100 12/20/18 08:00 Mechanical Ventilator 12/20/18 07:33 87 12/20/18 06:34 88 20 35 12/20/18 05:24 88 17 35 12/20/18 04:00 Mechanical Ventilator 12/20/18 04:00 104 12/20/18 04:00 35 12/20/18 04:00 98.6 88 17 127/70 (89) 100 12/20/18 03:25 89 17 35 12/20/18 01:04 80 18 35 12/20/18 00:00 Mechanical Ventilator 12/20/18 00:00 35 12/20/18 00:00 85 12/20/18 00:00 98.9 85 17 132/82 (99) 100 12/19/18 23:28 83 16 35 12/19/18 21:50 89 16 100 Mechanical Ventilator 35 12/19/18 21:35 94 19 100 Mechanical Ventilator 35 12/19/18 21:30 94 19 35 Intake and Output 12/19/18 12/20/18 19:00 07:00 Intake Total 1090.0 ml 860.0 ml Output Total 500 ml 1000 ml Balance 590.0 ml -140.0 ml Intake Free Water 90 ml IV Total 220.0 ml 110.0 ml Tube Feeding 720 ml 660 ml Other 150 ml Output Urine Total 500 ml 1000 ml # Bowel Movements 1 1 Laboratory Tests 12/20/18 04:00: White Blood Count 14.1H, Red Blood Count 3.25L, Hemoglobin 9.0L, Hematocrit 27.6L, Mean Corpuscular Volume 85, Mean Corpuscular Hemoglobin 27.7, Mean Corpuscular Hemoglobin Concent 32.6, Red Cell Distribution Width 14.5, Platelet Count 294, Mean Platelet Volume 7.0, Neutrophils (%) (Auto) 74.3, Lymphocytes (% ) (Auto) 9.9L, Monocytes (%) (Auto) 10.8H, Eosinophils (%) (Auto) 4.3H, Basophils (%) (Auto) 0.7, Sodium Level 132L, Potassium Level 3.8, Chloride Level 98, Carbon Dioxide Level 24, Anion Gap 10, Blood Urea Nitrogen 20H, Creatinine 1.1, Estimat Glomerular Filtration Rate > 60, Glucose Level 153H, Calcium Level 8.7, Phosphorus Level 1.6L, Magnesium Level 1.8, Total Bilirubin 0.2, Aspartate Amino Transf (AST/SGOT) 8L, Alanine Aminotransferase (ALT/SGPT) 13, Alkaline Phosphatase 83, Total Protein 7.2, Albumin 2.2L, Globulin 5.0, Albumin/Globulin Ratio 0.4L Height (Feet): 5 Height (Inches): 10.00 Weight (Pounds): 142 Cardiovascular: normal rate Respiratory/Chest: lungs clear Abdomen: soft Sven Johns MD Dec 20, 2018 21:22
[2018-12-21] VITALS: BP 135/72
--- NOTE | 2018-12-21 03:20 | NUR ---
HAND-OFF: Report given to Temi Rn, pt. remains stable and no signs of distress noted.
--- NOTE | 2018-12-21 03:30 | NUR ---
NURSE NOTES: BEDSIDE REPORT FROM ODILIA MENDEZ. PT IS BEDBOUND, OPENS EYES SPONTANEOUSLY, AND WITHDRAWS TO PAIN. DIRECTOR HEMATOLOGY SHOWING NSR. VENTILATOR SETTINGS: PORTEX 8, AC 16, TV 600, FIO2 35%, PEEP; TOLERATING WELL5. CGT RUNNING OSMOLYTE 1.5 @ 60; LOW RESIDUAL. SKIN IS CLEAN, DRY, DRESSINGS INTACT. CONDOM CATH INTACT, DRAINING. PRASHANTH PICC; ASYMPTOMATIC. BED IS LOCKED IN LOWEST POSITION, SIDERAILS X3, SZ PRECAUTIONS CONTINUED, CALL AYALA W/ IN REACH, BED ALARM ON. WILL CONTINUE TO MONITOR AND FOLLOW PLAN OF CARE.
[2018-12-21 04:00] VITALS: BP 126/71
[2018-12-21 04:23] LABS: BASOPHILS % (AUTO) 0.7 % (0.0-2.0); EOSINOPHILS % (AUTO) 2.1 % (0.0-3.0); HEMATOCRIT 28.7 % (42.0-52.0); HEMOGLOBIN 9.4 G/DL (14.2-18.0); LYMPHOCYTES % (AUTO) 10.2 % (20.0-45.0); MEAN CORPUSCULAR VOLUME 84 FL (80-99); MONOCYTES % (AUTO) 11.1 % (1.0-10.0); NEUTROPHILS % (AUTO) 75.9 % (45.0-75.0); PLATELET COUNT 304 K/UL (150-450); RED CELL DISTRIBUTION WIDTH 14.2 % (11.6-14.8); WHITE BLOOD COUNT 15.7 K/UL (4.8-10.8)
[2018-12-21 04:42] LABS: ALANINE AMINOTRANSFERASE 15 U/L (12-78); ALBUMIN 2.3 G/DL (3.4-5.0); ALBUMIN/GLOBULIN RATIO 0.4 (1.0-2.7); ALKALINE PHOSPHATASE 88 U/L (46-116); ANION GAP 9 mmol/L (5-15); ASPARTATE AMINO TRANSFERASE 11 U/L (15-37); BILIRUBIN,TOTAL 0.2 MG/DL (0.2-1.0); BLOOD UREA NITROGEN 23 mg/dL (7-18); CALCIUM 9.4 MG/DL (8.5-10.1); CARBON DIOXIDE 26 MMOL/L (21-32); CHLORIDE 97 MMOL/L (98-107); CREATININE 1.2 MG/DL (0.55-1.30); PHOSPHORUS 2.3 MG/DL (2.5-4.9); POTASSIUM 4.4 MMOL/L (3.5-5.1); SODIUM 132 MMOL/L (136-145)
[2018-12-21] MEDS: Sucralfate 1gm tab GT SCH ×4 (05:48→23:27)
[2018-12-21] MEDS: Piperacillin/Tazobactam 3.375 GM in D5W 110 ML IV SCH ×3 (05:48→21:00)
--- NOTE | 2018-12-21 07:00 | NUR ---
RESPIRATORY NOTE: Received Patient on Vent ACVC RR 16, VT 600, FIO2 35%, PEEP +5. Patient has a tracheostomy Portex 8, secured with trache ties. Breath sounds reveal bilateral rhonchi. Patient obtundent lying in bed. Alarms on and audible. Vent plugged into red outlet. Will continue to monitor throughout the day.
--- NOTE | 2018-12-21 07:22 | NUR ---
HAND-OFF: Report given to ODILIA RUIZ. PT RESTING IN BED, STABLE.
--- NOTE | 2018-12-21 07:34 | NUR ---
NURSE NOTES: received patient report from traci ames. patient is on bed. obtunded. not in acute distress. on vent with the ff settings: ac 16, tv 600 fio2 35% peep 5. on gt @60 cc/hr. with condom cath, draining. contact isolation observed. will continue plan of care.
[2018-12-21 08:00] VITALS: BP 119/73
[2018-12-21] MEDS: Fluconazole 100mg tab GT SCH (08:07)
[2018-12-21] MEDS: Heparin 5000 units/ml inj SUBQ SCH ×2 (08:11→20:58)
--- NOTE | 2018-12-21 08:41 | Infectious Diseases Prog Note ---
Assessment/Plan Assessment/Plan Abx: IV Vancomycin 12/08- Cefepime 12/08- Levaquinx 1 12/08 Assessment: Leukocytosis; imrpoving- ?UTI -u/a wbc 5-10, nit n eg, leuk +3; ucx NTD -CXR: No acute process. Right basilar atelectasis -Sp cx 12/09/18 E.coli (ESBL), P.a. 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 diff Dysphagia s/p G-tube Anemia. CVA/TIA w/ hemiplegia functional quadriplegia chronic encephalopathy CAD CHF Dm2 GIB s/p multiple EGDs in the past hx of severe esophagitis schizoaffective disease long term resident multiple admissions VRE colonization Plan: - Continue Zosyn #/-14, inhaled colistin #6/7 for MDR P.a.for sputum organism - Continue Fluconazole #/ for Yeast it the urine Additional P.a. Sensi pending. Im hesitant to start Amikacin given increased cr but if leukocytosis continues to increase it may be required. - f/u G tube drainage Cx - 12/12 S/P Vancomycin and Cefepime #5 -12/08 SP Levaquin x1 -11/06 SP Amikacin #6 -11/01 SP Meropenem # -10/29 SP IV Vanco #2, Cefepime #2 and Tigecycline #1 -10/28 SP LEavquin x1 -10/09 SP Ertapenem #5 - 10/04 SP Meropenem #2 -10/03/18 SP IV Vancomycin #2 and Cefepime #2 -08/09/18 SP Bactrim #7 -08/03 SP Vancomycin and Cefepime #3 -08/01/18 SP Ceftriaxone x1 -Monitor CBC/CMP, temperatures -Peg/trach care -aspiration precautions Will continue to follow along with you. Subjective Allergies: Coded Allergies: NO KNOWN DRUG ALLERGIES (Verified Allergy, Unknown, 09/11/16) Subjective Afebrile Mild Leukocytosis We are still waiting for the GNR form his PEG to be ID'd Satting well on vent Objective Vital Signs Last 24 Hour Vital Signs Date Time Temp Pulse Resp B/P (MAP) Pulse Ox O2 Delivery O2 Flow Rate FiO2 12/21/18 08:00 99.2 86 17 119/73 (88) 99 12/21/18 08:00 35 12/21/18 07:25 86 17 35 12/21/18 05:08 86 19 35 12/21/18 04:00 89 12/21/18 04:00 Mechanical Ventilator 12/21/18 04:00 97.6 89 16 126/71 (89) 98 12/21/18 04:00 35 12/21/18 03:12 82 16 35 12/21/18 01:13 90 19 35 12/21/18 00:00 90 12/21/18 00:00 Mechanical Ventilator 12/21/18 00:00 98.1 93 20 135/72 (93) 99 12/20/18 23:04 94 23 35 12/20/18 21:17 88 16 98 Mechanical Ventilator 35 12/20/18 21:02 94 18 35 12/20/18 21:02 94 18 100 Mechanical Ventilator 35 12/20/18 20:00 99.1 96 17 120/78 (92) 98 12/20/18 20:00 97 12/20/18 20:00 35 12/20/18 20:00 Mechanical Ventilator 12/20/18 19:28 95 18 35 12/20/18 17:28 105 23 35 12/20/18 16:00 35 12/20/18 16:00 99.0 101 18 115/76 (89) 99 12/20/18 16:00 Mechanical Ventilator 12/20/18 15:32 103 12/20/18 14:50 101 19 35 12/20/18 12:34 96 21 35 12/20/18 12:00 Mechanical Ventilator 12/20/18 12:00 87 12/20/18 12:00 35 12/20/18 12:00 99.9 96 22 124/69 (87) 99 12/20/18 10:56 90 17 35 12/20/18 09:50 89 16 100 Mechanical Ventilator 35 12/20/18 09:39 96 18 100 Mechanical Ventilator 35 12/20/18 09:29 90 18 35 Height (Feet): 5 Height (Inches): 10.00 Weight (Pounds): 142 Objective Gen: NAD, Sattign well on Vent HEENT: NCAT, MMM, Trached on vent Lungs: CTAB Heart: RRR, S1, S2 Abdomen: soft, non-tender, G tube mild erythema around tube some drainage. Microbiology Date/Time Source Procedure Growth Status 12/18/18 14:30 Body Fluid Drainage Gram Stain - Final Resulted 12/18/18 14:30 Aerobic Culture - Preliminary Gram Negative Bacillus 1 Resulted Laboratory Tests Test 12/21/18 04:00 White Blood Count 15.7 K/UL (4.8-10.8) H Red Blood Count 3.40 M/UL (4.70-6.10) L Hemoglobin 9.4 G/DL (14.2-18.0) L Hematocrit 28.7 % (42.0-52.0) L Mean Corpuscular Volume 84 FL (80-99) Mean Corpuscular Hemoglobin 27.7 PG (27.0-31.0) Mean Corpuscular Hemoglobin Concent 32.8 G/DL (32.0-36.0) Red Cell Distribution Width 14.2 % (11.6-14.8) Platelet Count 304 K/UL (150-450) Mean Platelet Volume 7.2 FL (6.5-10.1) Neutrophils (%) (Auto) 75.9 % (45.0-75.0) H Lymphocytes (%) (Auto) 10.2 % (20.0-45.0) L Monocytes (%) (Auto) 11.1 % (1.0-10.0) H Eosinophils (%) (Auto) 2.1 % (0.0-3.0) Basophils (%) (Auto) 0.7 % (0.0-2.0) Sodium Level 132 MMOL/L (136-145) L Potassium Level 4.4 MMOL/L (3.5-5.1) Chloride Level 97 MMOL/L (98-107) L Carbon Dioxide Level 26 MMOL/L (21-32) Anion Gap 9 mmol/L (5-15) Blood Urea Nitrogen 23 mg/dL (7-18) H Creatinine 1.2 MG/DL (0.55-1.30) Estimat Glomerular Filtration Rate 59.9 mL/min (>60) Glucose Level 105 MG/DL (74-106) Calcium Level 9.4 MG/DL (8.5-10.1) Phosphorus Level 2.3 MG/DL (2.5-4.9) L Magnesium Level 1.9 MG/DL (1.8-2.4) Total Bilirubin 0.2 MG/DL (0.2-1.0) Aspartate Amino Transf (AST/SGOT) 11 U/L (15-37) L Alanine Aminotransferase (ALT/SGPT) 15 U/L (12-78) Alkaline Phosphatase 88 U/L (46-116) Total Protein 7.8 G/DL (6.4-8.2) Albumin 2.3 G/DL (3.4-5.0) L Globulin 5.5 g/dL Albumin/Globulin Ratio 0.4 (1.0-2.7) L Current Medications Medications (Trade) Dose Ordered Sig/Wanda Route PRN Reason Start Time Stop Time Status Last Admin Dose Admin Acetaminophen (Tylenol) 650 mg Q4H PRN GT Mild Pain/Temp > 100.5 12/15/18 10:45 01/14/19 10:44 12/16/18 18:24 Chlorhexidine Gluconate (Jasmin-Hex 2%) 1 applic DAILY@1999 TOPIC 12/11/18 20:00 01/10/19 19:59 12/20/18 20:19 Colistimethate Sodium (Colistin *inhalation use only*) 150 mg Q12HR@10,22 INH 12/16/18 10:00 12/23/18 09:59 12/20/18 21:02 Dextrose (Dextrose 50%) 25 ml Q30M PRN IV Hypoglycemia 12/08/18 16:15 01/07/19 16:14 Dextrose (Dextrose 50%) 50 ml Q30M PRN IV hypoglycemia 12/08/18 16:15 01/07/19 16:14 Fluconazole (Diflucan) 200 mg DAILY GT 12/19/18 09:00 12/26/18 08:59 12/21/18 08:07 Heparin Sodium (Porcine) (Heparin 5000 units/ml) 5,000 units EVERY 12 HOURS SUBQ 12/08/18 21:00 01/07/19 20:59 12/21/18 08:11 Lansoprazole (Prevacid) 30 mg DAILY GT 12/18/18 09:00 01/17/19 08:59 12/21/18 08:07 Levothyroxine Sodium (Synthroid) 75 mcg Q24H GT 12/09/18 06:30 01/08/19 06:29 12/21/18 05:48 Ondansetron HCl (Zofran) 4 mg Q6H PRN IVP Nausea & Vomiting 12/08/18 16:00 01/07/19 15:59 Piperacillin Sod/ Tazobactam Sod 3.375 gm/Dextrose 110 ml @ 27.5 mls/hr EVERY 8 HOURS IV 12/12/18 14:00 12/25/18 13:59 12/21/18 05:48 Polyethylene Glycol (Miralax) 17 gm DAILYPRN PRN GT Constipation 12/15/18 10:45 01/07/19 15:59 Sucralfate (Carafate) 1 gm EVERY 6 HOURS GT 12/15/18 18:00 01/07/19 17:59 12/21/18 05:48 John Fiore MD Dec 21, 2018 08:41
[2018-12-21] MEDS: Colistin for inhalation INH SCH ×2 (09:24→22:05)
[2018-12-21 12:00] VITALS: BP 128/79
[2018-12-21 15:37] VITALS: BP 122/74
--- NOTE | 2018-12-21 16:28 | NUR ---
CASE MANAGEMENT: REVIEW SI: ANEMIA . ASPIRATION PNA . T 99.1 HR 81 RR 19 BP 128/79 SAT 99% MECH VENT FIO2 35 WBC 15.7 H/H 9.4/28.7 NA 132 IS: DIFLUCAN GT QD COLISTIN INH Q12HR ZOSYN IV Q8HR STEP DOWN UNIT STATUS DCP: PATIENT IS FROM [facility]
--- NOTE | 2018-12-21 17:02 | Pulmonolgy Critical Care Note ---
Critical Care - Asmt/Plan Problems: (1) Respiratory failure, laald-ob-puixkai (2) Aspiration pneumonia (3) Severe sepsis (4) Anemia (5) Psychosis (6) Hypothyroidism (7) Severe protein-calorie malnutrition (8) Feeding by G-tube Respiratory: monitor respiratory rate, adjust FIO2, CXR Renal: F/U I&O, keep IV fluid Infectious Disease: check cultures Gastrointestinal: continue feedings/current rate Endocrine: monitor blood sugar, check HgA1C Hematologic: transfuse if hgb<8.5 Neurologic: PRN Ativan Affect: PRN ativan Notes Reviewed: finishing lab technician, 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 with: nurses, employment case managerresidential property manager - Objective Last 24 Hour Vital Signs Date Time Temp Pulse Resp B/P (MAP) Pulse Ox O2 Delivery O2 Flow Rate FiO2 12/21/18 16:00 35 12/21/18 16:00 Mechanical Ventilator 12/21/18 15:37 99.0 86 17 122/74 (90) 99 12/21/18 15:34 89 12/21/18 15:09 89 19 35 12/21/18 13:13 90 16 35 12/21/18 12:00 Mechanical Ventilator 12/21/18 12:00 99.1 81 19 128/79 (95) 99 12/21/18 12:00 35 12/21/18 12:00 83 12/21/18 10:54 88 18 35 12/21/18 09:25 89 22 100 Mechanical Ventilator 35 12/21/18 09:22 93 22 35 12/21/18 09:20 93 18 100 Mechanical Ventilator 35 12/21/18 08:00 99.2 86 17 119/73 (88) 99 12/21/18 08:00 94 12/21/18 08:00 Mechanical Ventilator 12/21/18 08:00 35 12/21/18 07:25 86 17 35 12/21/18 05:08 86 19 35 12/21/18 04:00 89 12/21/18 04:00 Mechanical Ventilator 12/21/18 04:00 97.6 89 16 126/71 (89) 98 12/21/18 04:00 35 12/21/18 03:12 82 16 35 12/21/18 01:13 90 19 35 12/21/18 00:00 90 12/21/18 00:00 Mechanical Ventilator 12/21/18 00:00 98.1 93 20 135/72 (93) 99 12/20/18 23:04 94 23 35 12/20/18 21:17 88 16 98 Mechanical Ventilator 35 12/20/18 21:02 94 18 35 12/20/18 21:02 94 18 100 Mechanical Ventilator 35 12/20/18 20:00 99.1 96 17 120/78 (92) 98 12/20/18 20:00 97 12/20/18 20:00 35 12/20/18 20:00 Mechanical Ventilator 12/20/18 19:28 95 18 35 12/20/18 17:28 105 23 35 Status: awake Condition: critical HEENT: atraumatic Lungs: clear Heart: HR/BP stable Abdomen: non-tender, active bowel sounds Extremities: edema Decubiti: location Critical Care - Subjective ROS Limited/Unobtainable: Yes Condition: critical EKG Rhythm: Sinus Rhythm FI02: 35 Vent Support Breath Rate: 16 Vent Support Mode: AC Vent Tidal Volume: 600 Sputum Amount: Moderate PEEP: 5.0 PIP: 33 Tube Feeding Amount: 60 I&O: Intake and Output 12/20/18 12/21/18 19:00 07:00 Intake Total 1010.0 ml 900.0 ml Output Total 550 ml 650 ml Balance 460.0 ml 250.0 ml Intake Free Water 130 ml IV Total 110.0 ml 110.0 ml Tube Feeding 720 ml 660 ml Other 180 ml Output Urine Total 550 ml 650 ml # Bowel Movements 1 1 CXR: no change Labs: Laboratory Tests Test 12/21/18 04:00 White Blood Count 15.7 K/UL (4.8-10.8) H Red Blood Count 3.40 M/UL (4.70-6.10) L Hemoglobin 9.4 G/DL (14.2-18.0) L Hematocrit 28.7 % (42.0-52.0) L Mean Corpuscular Volume 84 FL (80-99) Mean Corpuscular Hemoglobin 27.7 PG (27.0-31.0) Mean Corpuscular Hemoglobin Concent 32.8 G/DL (32.0-36.0) Red Cell Distribution Width 14.2 % (11.6-14.8) Platelet Count 304 K/UL (150-450) Mean Platelet Volume 7.2 FL (6.5-10.1) Neutrophils (%) (Auto) 75.9 % (45.0-75.0) H Lymphocytes (%) (Auto) 10.2 % (20.0-45.0) L Monocytes (%) (Auto) 11.1 % (1.0-10.0) H Eosinophils (%) (Auto) 2.1 % (0.0-3.0) Basophils (%) (Auto) 0.7 % (0.0-2.0) Sodium Level 132 MMOL/L (136-145) L Potassium Level 4.4 MMOL/L (3.5-5.1) Chloride Level 97 MMOL/L (98-107) L Carbon Dioxide Level 26 MMOL/L (21-32) Anion Gap 9 mmol/L (5-15) Blood Urea Nitrogen 23 mg/dL (7-18) H Creatinine 1.2 MG/DL (0.55-1.30) Estimat Glomerular Filtration Rate 59.9 mL/min (>60) Glucose Level 105 MG/DL (74-106) Calcium Level 9.4 MG/DL (8.5-10.1) Phosphorus Level 2.3 MG/DL (2.5-4.9) L Magnesium Level 1.9 MG/DL (1.8-2.4) Total Bilirubin 0.2 MG/DL (0.2-1.0) Aspartate Amino Transf (AST/SGOT) 11 U/L (15-37) L Alanine Aminotransferase (ALT/SGPT) 15 U/L (12-78) Alkaline Phosphatase 88 U/L (46-116) Total Protein 7.8 G/DL (6.4-8.2) Albumin 2.3 G/DL (3.4-5.0) L Globulin 5.5 g/dL Albumin/Globulin Ratio 0.4 (1.0-2.7) L Huma Keating MD Dec 21, 2018 17:02
--- NOTE | 2018-12-21 19:11 | NUR ---
HAND-OFF: Report given to traci monterroso
--- NOTE | 2018-12-21 19:12 | NUR ---
NURSE NOTES: BEDSIDE REPORT FROM ODILIA WYNNE. PT IS BEDBOUND, OPENS EYES SPONTANEOUSLY, AND WITHDRAWS TO PAIN. WOOD CASKET ASSEMBLER SHOWING NSR. VENTILATOR SETTINGS: PORTEX 8, AC 16, TV 600, FIO2 35%, PEEP; TOLERATING WELL. CGT RUNNING OSMOLYTE 1.5 @ 60; 60 RESIDUAL, WILL MONITOR. SKIN IS CLEAN, DRY, DRESSINGS INTACT. CONDOM CATH INTACT, DRAINING. PRASHANTH PICC; ASYMPTOMATIC. BED IS LOCKED IN LOWEST POSITION, SIDERAILS X3, SZ PRECAUTIONS CONTINUED, CALL AYALA W/ IN REACH, BED ALARM ON. WILL CONTINUE TO MONITOR AND FOLLOW PLAN OF CARE.
[2018-12-21 20:00] VITALS: BP 111/58
[2018-12-21] MEDS ORDERED: NS 275ml ONE (20:38)
[2018-12-21] MEDS ORDERED: Tubing IV Secondary IV ONE (20:38)
[2018-12-21] MEDS: Dyna-Hex 2% Top Sol 2oz TOPIC SCH (20:56)
--- NOTE | 2018-12-21 21:20 | General Progress Note ---
Assessment/Plan Problem List: (1) Severe protein-calorie malnutrition ICD Codes: E43 - Unspecified severe protein-calorie malnutrition SNOMED: 179394505 (2) Feeding by G-tube ICD Codes: Z93.1 - Gastrostomy status SNOMED: 316389089, 086707777 (3) Anemia ICD Codes: D64.9 - Anemia, unspecified SNOMED: 241601878 (4) Chronic respiratory failure ICD Codes: J96.10 - Chronic respiratory failure, unspecified whether with hypoxia or hypercapnia SNOMED: 57479028 (5) Esophagitis ICD Codes: K20.9 - Esophagitis SNOMED: 40374326 (6) Hypothyroidism ICD Codes: E03.9 - Hypothyroidism, unspecified SNOMED: 64639591 (7) Aspiration pneumonia ICD Codes: J69.0 - Pneumonitis due to inhalation of food and vomit SNOMED: 191542495 (8) Leukocytosis ICD Codes: D72.829 - Elevated white blood cell count, unspecified SNOMED: 501053179, 333966827 Qualifiers: Qualified Codes: D72.828 - Other elevated white blood cell count (9) Contracture of multiple joints ICD Codes: M24.50 - Contracture, unspecified joint SNOMED: 99798652, 382962688 Status: progressing Assessment/Plan transfusion anemia is stable no gi bleed afebrile reviewed chart and labs pna Subjective ROS Limited/Unobtainable: Yes Allergies: Coded Allergies: NO KNOWN DRUG ALLERGIES (Verified Allergy, Unknown, 09/11/16) Objective Last 24 Hour Vital Signs Date Time Temp Pulse Resp B/P (MAP) Pulse Ox O2 Delivery O2 Flow Rate FiO2 12/21/18 21:00 89 18 35 12/21/18 19:11 96 22 35 12/21/18 17:15 87 23 35 12/21/18 16:00 35 12/21/18 16:00 Mechanical Ventilator 12/21/18 15:37 99.0 86 17 122/74 (90) 99 12/21/18 15:34 89 12/21/18 15:09 89 19 35 12/21/18 13:13 90 16 35 12/21/18 12:00 Mechanical Ventilator 12/21/18 12:00 99.1 81 19 128/79 (95) 99 12/21/18 12:00 35 12/21/18 12:00 83 12/21/18 10:54 88 18 35 12/21/18 09:25 89 22 100 Mechanical Ventilator 35 12/21/18 09:22 93 22 35 12/21/18 09:20 93 18 100 Mechanical Ventilator 35 12/21/18 08:00 99.2 86 17 119/73 (88) 99 12/21/18 08:00 94 12/21/18 08:00 Mechanical Ventilator 12/21/18 08:00 35 12/21/18 07:25 86 17 35 12/21/18 05:08 86 19 35 12/21/18 04:00 89 12/21/18 04:00 Mechanical Ventilator 12/21/18 04:00 97.6 89 16 126/71 (89) 98 12/21/18 04:00 35 12/21/18 03:12 82 16 35 12/21/18 01:13 90 19 35 12/21/18 00:00 90 12/21/18 00:00 Mechanical Ventilator 12/21/18 00:00 98.1 93 20 135/72 (93) 99 12/20/18 23:04 94 23 35 Intake and Output 12/20/18 12/21/18 19:00 07:00 Intake Total 1010.0 ml 900.0 ml Output Total 550 ml 650 ml Balance 460.0 ml 250.0 ml Intake Free Water 130 ml IV Total 110.0 ml 110.0 ml Tube Feeding 720 ml 660 ml Other 180 ml Output Urine Total 550 ml 650 ml # Bowel Movements 1 1 Laboratory Tests 12/21/18 04:00: White Blood Count 15.7H, Red Blood Count 3.40L, Hemoglobin 9.4L, Hematocrit 28.7L, Mean Corpuscular Volume 84, Mean Corpuscular Hemoglobin 27.7, Mean Corpuscular Hemoglobin Concent 32.8, Red Cell Distribution Width 14.2, Platelet Count 304, Mean Platelet Volume 7.2, Neutrophils (%) (Auto) 75.9H, Lymphocytes ( %) (Auto) 10.2L, Monocytes (%) (Auto) 11.1H, Eosinophils (%) (Auto) 2.1, Basophils (%) (Auto) 0.7, Sodium Level 132L, Potassium Level 4.4, Chloride Level 97L, Carbon Dioxide Level 26, Anion Gap 9, Blood Urea Nitrogen 23H, Creatinine 1.2, Estimat Glomerular Filtration Rate 59.9, Glucose Level 105, Calcium Level 9.4, Phosphorus Level 2.3L, Magnesium Level 1.9, Total Bilirubin 0.2, Aspartate Amino Transf (AST/SGOT) 11L, Alanine Aminotransferase (ALT/SGPT) 15, Alkaline Phosphatase 88, Total Protein 7.8, Albumin 2.3L, Globulin 5.5, Albumin/Globulin Ratio 0.4L Height (Feet): 5 Height (Inches): 10.00 Weight (Pounds): 142 Neck: normal alignment Cardiovascular: normal rate Respiratory/Chest: lungs clear Sven Johns MD Dec 21, 2018 21:20
[2018-12-22] VITALS: BP 120/71
[2018-12-22 04:00] VITALS: BP 135/90
[2018-12-22] MEDS: Sucralfate 1gm tab GT SCH ×3 (06:04→17:03)
[2018-12-22] MEDS: Piperacillin/Tazobactam 3.375 GM in D5W 110 ML IV SCH ×3 (06:04→21:23)
--- NOTE | 2018-12-22 07:00 | NUR ---
HAND-OFF: Report given to ODILIA WYNNE. PT IS STABLE AT THIS TIME.
--- NOTE | 2018-12-22 07:03 | NUR ---
NURSE NOTES: received patient report from traci ames. patient is on bed asleep. not in acute distress. bed bound. on vent. no arrythmias reported during the night. on condom cath, draining. will follow plan of care.
--- NOTE | 2018-12-22 07:31 | NUR ---
RESPIRATORY NOTE: Patient received mechanically ventilated on PB 840 with current ordered vent settings. Patient has trach size 8.0 Portex cuffed that is secured with trach tie and guard. There are bilateral coarse breath sounds present upon auscultation. Moderate amount of thick clear/white secretions were suctioned via inline suction system without incident. Vent alarms are functional and audible. There is an ambu bag available at the bedside and the vent is connected to a red outlet. There are no signs or symptoms of respiratory distress or shortness of breath noted. Patient appears comfortable at this time. Will continue to monitor.
[2018-12-22 08:00] VITALS: BP 133/74
[2018-12-22] MEDS: Fluconazole 100mg tab GT SCH (08:02)
[2018-12-22] MEDS: Heparin 5000 units/ml inj SUBQ SCH ×2 (08:04→21:22)
[2018-12-22] MEDS: Colistin for inhalation INH SCH ×2 (10:26→11:17)
--- NOTE | 2018-12-22 11:56 | NUR ---
REGRINDER OPERATORDIGITAL PRODUCT MANAGER SI:ANEMIA . ASPIRATION PNA VS: BP 120/70, P 91, T 99.0, RR 20, SpO2 100 on VENT AC 16, TV 600, PEEP 5.0, FiO2 35 WBC 14.0, RBC 3.48, Hgb 9.7, Hct 29.8, Na 133, K 5.6, BUN 29 IS:HEPARIN SUBQ SYNTHROID 75mccg GT ZOSYN 110ml IV SUCRALFATE 1gm COLISTIN 150mg PREVACID 30mg GT DIFLUCAN 200mg GT SDU STATUS
[2018-12-22 12:00] VITALS: BP 130/74
[2018-12-22 16:00] VITALS: BP 127/76
[2018-12-22] MEDS ORDERED: NS 275ml ONE (16:36)
--- NOTE | 2018-12-22 19:10 | NUR ---
NURSE NOTES: Pt report received from [facility] HARTLEY. Pt appears obtunded. Pt appears to be in stable condition with Respiratory and cardiac assessment within normal limits/no distress noted. Pt acid supervisor is attached and active, no cardiac distress noted. Pt Is a trach- vent with a setting of Portex 8, AC 16, PEEP 5, Fio2 35%, TV 600, no respiratory distress noted. Pt has a G tube tube that is patent and is running Osmolite 1.5, no abnormalities noted. Pt has a Right upper arm PICC line that is able to flush, no abnormalities noted. Pt has a condom catheter that is patent and is draining to gravity. All safety precaution are active such as bed rails are seizure padded, side rails are up times 3, bed is in lowest position, bed alarm is active, call light is within easy reach. Will continue plan of care.
--- NOTE | 2018-12-22 19:25 | NUR ---
HAND-OFF: Report given to monica ames.
[2018-12-22 20:00] VITALS: BP 115/78
[2018-12-22] MEDS: Dyna-Hex 2% Top Sol 2oz TOPIC SCH (21:23)
--- NOTE | 2018-12-22 21:39 | General Progress Note ---
Assessment/Plan Problem List: (1) Severe protein-calorie malnutrition ICD Codes: E43 - Unspecified severe protein-calorie malnutrition SNOMED: 379329425 (2) Feeding by G-tube ICD Codes: Z93.1 - Gastrostomy status SNOMED: 455532503, 390443226 (3) Anemia ICD Codes: D64.9 - Anemia, unspecified SNOMED: 044446062 (4) Chronic respiratory failure ICD Codes: J96.10 - Chronic respiratory failure, unspecified whether with hypoxia or hypercapnia SNOMED: 75473784 (5) Esophagitis ICD Codes: K20.9 - Esophagitis SNOMED: 76950306 (6) Hypothyroidism ICD Codes: E03.9 - Hypothyroidism, unspecified SNOMED: 09311964 (7) Aspiration pneumonia ICD Codes: J69.0 - Pneumonitis due to inhalation of food and vomit SNOMED: 985953166 (8) Leukocytosis ICD Codes: D72.829 - Elevated white blood cell count, unspecified SNOMED: 355596962, 910885940 Qualifiers: Qualified Codes: D72.828 - Other elevated white blood cell count (9) Contracture of multiple joints ICD Codes: M24.50 - Contracture, unspecified joint SNOMED: 44454894, 252658420 Status: progressing Assessment/Plan anemia no change malnutrition check h/h moniter for bleeding gerd pna Subjective ROS Limited/Unobtainable: Yes Allergies: Coded Allergies: NO KNOWN DRUG ALLERGIES (Verified Allergy, Unknown, 09/11/16) Objective Last 24 Hour Vital Signs Date Time Temp Pulse Resp B/P (MAP) Pulse Ox O2 Delivery O2 Flow Rate FiO2 12/22/18 21:27 89 20 100 Mechanical Ventilator 35 12/22/18 21:16 91 18 100 Mechanical Ventilator 35 12/22/18 20:53 92 21 35 12/22/18 19:00 95 21 35 12/22/18 17:17 85 22 35 12/22/18 16:00 99.6 96 25 127/76 (93) 100 12/22/18 16:00 Mechanical Ventilator 12/22/18 15:19 92 12/22/18 14:52 88 22 35 12/22/18 13:02 85 24 35 12/22/18 12:00 99.1 93 18 130/74 (92) 100 4/14/19 12:00 Mechanical Ventilator 12/22/18 11:45 89 12/22/18 11:27 88 22 100 Mechanical Ventilator 35 12/22/18 11:17 87 22 99 Mechanical Ventilator 35 12/22/18 11:16 87 22 35 12/22/18 08:43 86 19 35 12/22/18 08:00 99.1 84 17 133/74 (93) 100 12/22/18 08:00 84 12/22/18 08:00 Mechanical Ventilator 12/22/18 07:26 83 22 35 12/22/18 05:04 90 20 35 12/22/18 04:00 86 12/22/18 04:00 35 12/22/18 04:00 98.6 88 22 135/90 (105) 100 12/22/18 04:00 Mechanical Ventilator 12/22/18 02:55 91 20 35 12/22/18 01:09 93 21 35 12/22/18 00:00 96 12/22/18 00:00 Mechanical Ventilator 12/22/18 00:00 99.3 95 20 120/71 (87) 99 12/22/18 00:00 35 12/21/18 22:31 84 20 35 12/21/18 22:16 91 20 100 Mechanical Ventilator 35 12/21/18 22:05 90 20 100 Mechanical Ventilator 35 Intake and Output 12/21/18 12/22/18 19:00 07:00 Intake Total 987.5 ml 947.5 ml Output Total 550 ml 1400 ml Balance 437.5 ml -452.5 ml Intake Free Water 75 ml 90 ml IV Total 192.5 ml 137.5 ml Tube Feeding 720 ml 720 ml Output Urine Total 550 ml 1400 ml # Voids 1 # Bowel Movements 1 3 Height (Feet): 5 Height (Inches): 10.00 Weight (Pounds): 142 Cardiovascular: normal rate Respiratory/Chest: lungs clear Abdomen: soft Sven Johns MD Dec 22, 2018 21:39
[2018-12-22] MEDS ORDERED: Colistin for inhalation INH SCH (22:00)
[2018-12-23] VITALS: BP 126/70
[2018-12-23] MEDS: Sucralfate 1gm tab GT SCH ×4 (00:40→17:10)
[2018-12-23 04:00] VITALS: BP 135/78
[2018-12-23 05:14] LABS: HEMATOCRIT 29.8 % (42.0-52.0); HEMOGLOBIN 9.7 G/DL (14.2-18.0); LYMPHOCYTES % (AUTO) 11.9 % (20.0-45.0); MEAN CORPUSCULAR VOLUME 86 FL (80-99); MONOCYTES % (AUTO) 11.3 % (1.0-10.0); NEUTROPHILS % (AUTO) 69.9 % (45.0-75.0); PLATELET COUNT 325 K/UL (150-450); RED BLOOD COUNT 3.48 M/UL (4.70-6.10); RED CELL DISTRIBUTION WIDTH 14.9 % (11.6-14.8)
[2018-12-23] MEDS: Piperacillin/Tazobactam 3.375 GM in D5W 110 ML IV SCH (05:44)
[2018-12-23 05:59] LABS: ALANINE AMINOTRANSFERASE 25 U/L (12-78); ALBUMIN 2.2 G/DL (3.4-5.0); ALBUMIN/GLOBULIN RATIO 0.4 (1.0-2.7); ALKALINE PHOSPHATASE 92 U/L (46-116); ANION GAP 9 mmol/L (5-15); ASPARTATE AMINO TRANSFERASE 20 U/L (15-37); BILIRUBIN,TOTAL 0.2 MG/DL (0.2-1.0); BLOOD UREA NITROGEN 29 mg/dL (7-18); CALCIUM 9.4 MG/DL (8.5-10.1); CARBON DIOXIDE 26 MMOL/L (21-32); CHLORIDE 98 MMOL/L (98-107); CREATININE 1.2 MG/DL (0.55-1.30); POTASSIUM 5.6 MMOL/L (3.5-5.1); SODIUM 133 MMOL/L (136-145)
--- NOTE | 2018-12-23 07:12 | NUR ---
HAND-OFF: Report given to Deborah HARTLEY.
--- NOTE | 2018-12-23 07:13 | NUR ---
NURSE NOTES: Received patient in bed. Vent dependent. On continuous GTF. Condom catheter inplace, soft large bowel movement noted, seizure precautions observed, contact isolation observed.
[2018-12-23 08:00] VITALS: BP 129/78
[2018-12-23] MEDS: Fluconazole 100mg tab GT SCH (08:47)
[2018-12-23] MEDS: Heparin 5000 units/ml inj SUBQ SCH ×2 (08:51→20:12)
--- NOTE | 2018-12-23 09:12 | Infectious Diseases Prog Note ---
Assessment/Plan Assessment/Plan Abx: IV Vancomycin 12/08- Cefepime 12/08- Levaquinx 1 12/08 Assessment: Leukocytosis - Stable - PEG site with puruelnt discharge 12/18/18 Cx growing KPC, ESBL E. coli and CoNS -CXR: No acute process. Right basilar atelectasis -Sp cx 12/09/18 E.coli (ESBL), P.a. 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 diff Dysphagia s/p G-tube Anemia. CVA/TIA w/ hemiplegia functional quadriplegia chronic encephalopathy CAD CHF Dm2 GIB s/p multiple EGDs in the past hx of severe esophagitis schizoaffective disease snf resident multiple admissions VRE colonization Plan: - Start Vancomcyin and tigecyclin for PEG site infection - CT to evaluate for abscess around G tube site - 12/23/18 SP Zosyn #11, inhaled colistin #8 for MDR P.a.for sputum organism and Fluconazole #7 for Yeast it the urine - 12/12 S/P Vancomycin and Cefepime #5 -12/08 SP Levaquin x1 -11/06 SP Amikacin #6 -11/01 SP Meropenem #4 -10/29 SP IV Vanco #2, Cefepime #2 and Tigecycline #1 -10/28 SP LEavquin x1 -10/09 SP Ertapenem #5 - 10/04 SP Meropenem #2 -10/03/18 SP IV Vancomycin #2 and Cefepime #2 -08/09/18 SP Bactrim #7 -08/03 SP Vancomycin and Cefepime #3 -08/01/18 SP Ceftriaxone x1 -Monitor CBC/CMP, temperatures -Peg/trach care -aspiration precautions Will continue to follow along with you. Subjective Allergies: Coded Allergies: NO KNOWN DRUG ALLERGIES (Verified Allergy, Unknown, 09/11/16) Subjective Afebrile Mild Leukocytosis PEG site discharge growing KPC and ESBL E. coli and CoNS Satting well on vent Objective Vital Signs Last 24 Hour Vital Signs Date Time Temp Pulse Resp B/P (MAP) Pulse Ox O2 Delivery O2 Flow Rate FiO2 12/23/18 08:00 97.7 96 20 129/78 (95) 99 12/23/18 08:00 Mechanical Ventilator 12/23/18 07:20 99 17 35 12/23/18 05:21 88 19 35 12/23/18 04:00 Mechanical Ventilator 12/23/18 04:00 88 12/23/18 04:00 98.4 99 17 135/78 (97) 100 12/23/18 03:00 91 16 35 12/23/18 01:11 90 20 35 12/23/18 00:00 89 12/23/18 00:00 99.0 89 16 126/70 (88) 100 12/23/18 00:00 Mechanical Ventilator 12/22/18 22:57 94 16 35 12/22/18 21:27 89 20 100 Mechanical Ventilator 35 12/22/18 21:16 91 18 100 Mechanical Ventilator 35 12/22/18 20:53 92 21 35 12/22/18 20:00 95 12/22/18 20:00 98.7 92 23 115/78 (90) 100 12/22/18 20:00 Mechanical Ventilator 12/22/18 19:00 95 21 35 12/22/18 17:17 85 22 35 12/22/18 16:00 99.6 96 25 127/76 (93) 100 12/22/18 16:00 Mechanical Ventilator 12/22/18 15:19 92 12/22/18 14:52 88 22 35 12/22/18 13:02 85 24 35 12/22/18 12:00 99.1 93 18 130/74 (92) 100 12/22/18 12:00 Mechanical Ventilator 12/22/18 11:45 89 12/22/18 11:27 88 22 100 Mechanical Ventilator 35 12/22/18 11:17 87 22 99 Mechanical Ventilator 35 12/22/18 11:16 87 22 35 Height (Feet): 5 Height (Inches): 10.00 Weight (Pounds): 142 Objective Gen: NAD, Sattign well on Vent 35% HEENT: NCAT, MMM, Trached on vent Lungs: CTAB Heart: RRR, S1, S2 Abdomen: soft, non-tender, G tube mild erythema around tube some drainage. Laboratory Tests Test 12/23/18 03:30 White Blood Count 14.0 K/UL (4.8-10.8) H Red Blood Count 3.48 M/UL (4.70-6.10) L Hemoglobin 9.7 G/DL (14.2-18.0) L Hematocrit 29.8 % (42.0-52.0) L Mean Corpuscular Volume 86 FL (80-99) Mean Corpuscular Hemoglobin 27.9 PG (27.0-31.0) Mean Corpuscular Hemoglobin Concent 32.6 G/DL (32.0-36.0) Red Cell Distribution Width 14.9 % (11.6-14.8) H Platelet Count 325 K/UL (150-450) Mean Platelet Volume 7.1 FL (6.5-10.1) Neutrophils (%) (Auto) 69.9 % (45.0-75.0) Lymphocytes (%) (Auto) 11.9 % (20.0-45.0) L Monocytes (%) (Auto) 11.3 % (1.0-10.0) H Eosinophils (%) (Auto) 6.0 % (0.0-3.0) H Basophils (%) (Auto) 1.0 % (0.0-2.0) Sodium Level 133 MMOL/L (136-145) L Potassium Level 5.6 MMOL/L (3.5-5.1) H Chloride Level 98 MMOL/L (98-107) Carbon Dioxide Level 26 MMOL/L (21-32) Anion Gap 9 mmol/L (5-15) Blood Urea Nitrogen 29 mg/dL (7-18) H Creatinine 1.2 MG/DL (0.55-1.30) Estimat Glomerular Filtration Rate 59.9 mL/min (>60) Glucose Level 151 MG/DL (74-106) H Calcium Level 9.4 MG/DL (8.5-10.1) Total Bilirubin 0.2 MG/DL (0.2-1.0) Aspartate Amino Transf (AST/SGOT) 20 U/L (15-37) Alanine Aminotransferase (ALT/SGPT) 25 U/L (12-78) Alkaline Phosphatase 92 U/L (46-116) Pro-B-Type Natriuretic Peptide 724 pg/mL (0-125) H Total Protein 7.2 G/DL (6.4-8.2) Albumin 2.2 G/DL (3.4-5.0) L Globulin 5.0 g/dL Albumin/Globulin Ratio 0.4 (1.0-2.7) L Current Medications Medications (Trade) Dose Ordered Sig/Wanda Route PRN Reason Start Time Stop Time Status Last Admin Dose Admin Acetaminophen (Tylenol) 650 mg Q4H PRN GT Mild Pain/Temp > 100.5 12/15/18 10:45 01/14/19 10:44 12/16/18 18:24 Chlorhexidine Gluconate (Jasmin-Hex 2%) 1 applic DAILY@1999 TOPIC 12/11/18 20:00 01/10/19 19:59 12/22/18 21:23 Colistimethate Sodium (Colistin *inhalation use only*) 150 mg Q12HR@ INH 12/22/18 22:00 12/29/18 21:59 12/22/18 21:16 Dextrose (Dextrose 50%) 25 ml Q30M PRN IV Hypoglycemia 12/08/18 16:15 01/07/19 16:14 Dextrose (Dextrose 50%) 50 ml Q30M PRN IV hypoglycemia 12/08/18 16:15 01/07/19 16:14 Fluconazole (Diflucan) 200 mg DAILY GT 12/19/18 09:00 12/26/18 08:59 12/23/18 08:47 Heparin Sodium (Porcine) (Heparin 5000 units/ml) 5,000 units EVERY 12 HOURS SUBQ 12/08/18 21:00 01/07/19 20:59 12/23/18 08:51 Lansoprazole (Prevacid) 30 mg DAILY GT 12/18/18 09:00 01/17/19 08:59 12/23/18 08:47 Levothyroxine Sodium (Synthroid) 75 mcg Q24H GT 12/09/18 06:30 01/08/19 06:29 12/23/18 05:44 Ondansetron HCl (Zofran) 4 mg Q6H PRN IVP Nausea & Vomiting 12/08/18 16:00 01/07/19 15:59 Piperacillin Sod/ Tazobactam Sod 3.375 gm/Dextrose 110 ml @ 27.5 mls/hr EVERY 8 HOURS IV 12/12/18 14:00 12/25/18 13:59 12/23/18 05:44 Polyethylene Glycol (Miralax) 17 gm DAILYPRN PRN GT Constipation 12/15/18 10:45 01/07/19 15:59 Sucralfate (Carafate) 1 gm EVERY 6 HOURS GT 12/15/18 18:00 01/07/19 17:59 12/23/18 05:44 John Fiore MD Dec 23, 2018 09:12
[2018-12-23] MEDS ORDERED: Vancomycin 1 GM in D5W 275 ML IVPB SCH (09:15)
--- NOTE | 2018-12-23 09:47 | NUR ---
RADIOLOGY DEPT., CHEST X-RAY DONE.-P.DYE
[2018-12-23] MEDS ORDERED: Isovue-300 100ml vial INJ PRN (10:45)
--- NOTE | 2018-12-23 10:45 | Pulmonolgy Critical Care Note ---
Critical Care - Asmt/Plan Problems: (1) Respiratory failure, [id number] (2) Aspiration pneumonia (3) Severe sepsis (4) Anemia (5) Psychosis (6) Hypothyroidism (7) Severe protein-calorie malnutrition (8) Feeding by G-tube Respiratory: monitor respiratory rate, adjust FIO2, CXR Cardiac: continue pressors, continue to monitor HR/BP Renal: F/U I&O, keep IV fluid, check electrolytes Infectious Disease: check cultures Gastrointestinal: continue feedings/current rate Endocrine: monitor blood sugar, check TSH Hematologic: monitor H/H, transfuse if hgb<8.5 Neurologic: PRN Morphine, keep patient comfortable Notes Reviewed: 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 with: nurses, consultants, case hardeneraircraft manager - Objective Last 24 Hour Vital Signs Date Time Temp Pulse Resp B/P (MAP) Pulse Ox O2 Delivery O2 Flow Rate FiO2 12/23/18 09:07 100 23 35 12/23/18 08:00 97.7 96 20 129/78 (95) 99 12/23/18 08:00 Mechanical Ventilator 12/23/18 08:00 93 12/23/18 07:20 99 17 35 12/23/18 05:21 88 19 35 12/23/18 04:00 Mechanical Ventilator 12/23/18 04:00 88 12/23/18 04:00 98.4 99 17 135/78 (97) 100 12/23/18 03:00 91 16 35 12/23/18 01:11 90 20 35 12/23/18 00:00 89 12/23/18 00:00 99.0 89 16 126/70 (88) 100 12/23/18 00:00 Mechanical Ventilator 12/22/18 22:57 94 16 35 12/22/18 21:27 89 20 100 Mechanical Ventilator 35 12/22/18 21:16 91 18 100 Mechanical Ventilator 35 12/22/18 20:53 92 21 35 12/22/18 20:00 95 12/22/18 20:00 98.7 92 23 115/78 (90) 100 12/22/18 20:00 Mechanical Ventilator 12/22/18 19:00 95 21 35 12/22/18 17:17 85 22 35 12/22/18 16:00 99.6 96 25 127/76 (93) 100 12/22/18 16:00 Mechanical Ventilator 12/22/18 15:19 92 12/22/18 14:52 88 22 35 12/22/18 13:02 85 24 35 12/22/18 12:00 99.1 93 18 130/74 (92) 100 12/22/18 12:00 Mechanical Ventilator 12/22/18 11:45 89 12/22/18 11:27 88 22 100 Mechanical Ventilator 35 12/22/18 11:17 87 22 99 Mechanical Ventilator 35 12/22/18 11:16 87 22 35 Status: awake Condition: critical HEENT: atraumatic Neck: full ROM Lungs: chest wall tender Heart: HR/BP stable Abdomen: non-tender, feeding tube Extremities: edema Critical Care - Subjective ROS Limited/Unobtainable: No Condition: critical EKG Rhythm: Sinus Rhythm FI02: 35 Vent Support Breath Rate: 16 Vent Support Mode: AC Vent Tidal Volume: 600 Sputum Amount: Moderate PEEP: 5.0 PIP: 28 Tube Feeding Amount: 60 I&O: Intake and Output 12/22/18 12/23/18 19:00 07:00 Intake Total 932.5 ml 857.5 ml Output Total 725 ml Balance 207.5 ml 857.5 ml Intake Free Water 80 ml 120 ml IV Total 192.5 ml 137.5 ml Tube Feeding 660 ml 600 ml Output Urine Total 725 ml CXR: no change Labs: Laboratory Tests Test 12/23/18 03:30 White Blood Count 14.0 K/UL (4.8-10.8) H Red Blood Count 3.48 M/UL (4.70-6.10) L Hemoglobin 9.7 G/DL (14.2-18.0) L Hematocrit 29.8 % (42.0-52.0) L Mean Corpuscular Volume 86 FL (80-99) Mean Corpuscular Hemoglobin 27.9 PG (27.0-31.0) Mean Corpuscular Hemoglobin Concent 32.6 G/DL (32.0-36.0) Red Cell Distribution Width 14.9 % (11.6-14.8) H Platelet Count 325 K/UL (150-450) Mean Platelet Volume 7.1 FL (6.5-10.1) Neutrophils (%) (Auto) 69.9 % (45.0-75.0) Lymphocytes (%) (Auto) 11.9 % (20.0-45.0) L Monocytes (%) (Auto) 11.3 % (1.0-10.0) H Eosinophils (%) (Auto) 6.0 % (0.0-3.0) H Basophils (%) (Auto) 1.0 % (0.0-2.0) Sodium Level 133 MMOL/L (136-145) L Potassium Level 5.6 MMOL/L (3.5-5.1) H Chloride Level 98 MMOL/L (98-107) Carbon Dioxide Level 26 MMOL/L (21-32) Anion Gap 9 mmol/L (5-15) Blood Urea Nitrogen 29 mg/dL (7-18) H Creatinine 1.2 MG/DL (0.55-1.30) Estimat Glomerular Filtration Rate 59.9 mL/min (>60) Glucose Level 151 MG/DL (74-106) H Calcium Level 9.4 MG/DL (8.5-10.1) Total Bilirubin 0.2 MG/DL (0.2-1.0) Aspartate Amino Transf (AST/SGOT) 20 U/L (15-37) Alanine Aminotransferase (ALT/SGPT) 25 U/L (12-78) Alkaline Phosphatase 92 U/L (46-116) Pro-B-Type Natriuretic Peptide 724 pg/mL (0-125) H Total Protein 7.2 G/DL (6.4-8.2) Albumin 2.2 G/DL (3.4-5.0) L Globulin 5.0 g/dL Albumin/Globulin Ratio 0.4 (1.0-2.7) L Huma Keating MD Dec 23, 2018 10:45
[2018-12-23] MEDS ORDERED: Tigecycline 100 MG in NS 110 ML IVPB SCH (11:00)
--- NOTE | 2018-12-23 11:06 | Diagnostic Imaging Report ---
Indication: Dyspnea Technique: One view of the chest Comparison: December 16, 2018 Findings: Tracheostomy, right arm PICC again demonstrated. There is some atelectasis in the right perihilar region. Lungs and pleural spaces are otherwise clear. No other significant interim change Impression: No acute process
[2018-12-23] MEDS: Vancomycin 500mg/D5W 110ml IVPB SCH ×4 (11:24→22:41)
[2018-12-23 12:00] VITALS: BP 140/81
[2018-12-23] MEDS ORDERED: Sodium Polystyrene Sulfonate 15gm Powder ORAL SCH (12:00)
--- NOTE | 2018-12-23 12:04 | NUR ---
APPRAISAL MANAGERHAM CLERK SI:ANEMIA . ASPIRATION PNA VS: BP 135/78, P 100, T 97.7, RR 23, SpO2 99 on VENT AC 16, TV 600, PEEP 5.0, FiO2 35 Na 133, K 5.6, WBC 14.0, RBC 3.48, Hgb 9.7, Hct 29.8 IS:KAYEXALATE 30gm TIGECYCLINE 100ml IVPB VANCOMYCIN 110ml IVPB DIFLUCAN 200mg GT PREVACID 30mg GT SUCRALFATE 1gm GT SYNTHROID 75mcg GT HEPARIN SUBQ SDU STATUS
--- NOTE | 2018-12-23 14:33 | NUR ---
*-*INSURANCE *-* UPDATED CLINICALS & REVIEW HAVE BEEN FAXED TO: [facility]: JOSE Soares P- [phone] F- [phone]...REVIEW/CLINICAL
[2018-12-23 16:00] VITALS: BP 148/82
--- NOTE | 2018-12-23 16:35 | NUR ---
NURSE NOTES: Informed Dr. Fiore that patient needs consent for IV contrast for CT abdomen. Dr. Fiore said that he'll add on his notes later today. And to have CT abdomen tomorrow.
--- NOTE | 2018-12-23 19:31 | NUR ---
NURSE NOTES: Patient received Deborah Oden RN. Patient is in bed with X3 rails up, call light in reach, and bed in lowest position. Patient shows no signs of distress at the moment. Will continue to monitor.
[2018-12-23 20:00] VITALS: BP 131/96
[2018-12-23] MEDS: Dyna-Hex 2% Top Sol 2oz TOPIC SCH (20:10)
[2018-12-23] MEDS: Tigecycline 50 MG in NS 110 ML IVPB SCH (20:41)
--- NOTE | 2018-12-23 21:43 | General Progress Note ---
Assessment/Plan Problem List: (1) Severe protein-calorie malnutrition ICD Codes: E43 - Unspecified severe protein-calorie malnutrition SNOMED: 673775842 (2) Feeding by G-tube ICD Codes: Z93.1 - Gastrostomy status SNOMED: 317529400, 041076675 (3) Anemia ICD Codes: D64.9 - Anemia, unspecified SNOMED: 838236649 (4) Chronic respiratory failure ICD Codes: J96.10 - Chronic respiratory failure, unspecified whether with hypoxia or hypercapnia SNOMED: 39363012 (5) Esophagitis ICD Codes: K20.9 - Esophagitis SNOMED: 61683104 (6) Hypothyroidism ICD Codes: E03.9 - Hypothyroidism, unspecified SNOMED: 35597063 (7) Aspiration pneumonia ICD Codes: J69.0 - Pneumonitis due to inhalation of food and vomit SNOMED: 441114417 (8) Leukocytosis ICD Codes: D72.829 - Elevated white blood cell count, unspecified SNOMED: 332337456, 811844920 Qualifiers: Qualified Codes: D72.828 - Other elevated white blood cell count (9) Contracture of multiple joints ICD Codes: M24.50 - Contracture, unspecified joint SNOMED: 10129806, 065258509 Status: progressing Assessment: anemia no change malnutrition check h/h moniter for bleeding gerd pna Plan: afebrile nac hypothryoid gerd reviewed chart and labs Subjective ROS Limited/Unobtainable: Yes Allergies: Coded Allergies: NO KNOWN DRUG ALLERGIES (Verified Allergy, Unknown, 09/11/16) Objective Last 24 Hour Vital Signs Date Time Temp Pulse Resp B/P (MAP) Pulse Ox O2 Delivery O2 Flow Rate FiO2 12/23/18 21:17 100 20 35 12/23/18 20:04 Mechanical Ventilator 12/23/18 20:00 98.2 97 18 131/96 (108) 100 12/23/18 20:00 101 12/23/18 19:30 101 21 35 12/23/18 17:26 95 16 35 12/23/18 16:00 Mechanical Ventilator 12/23/18 16:00 98.8 92 18 148/82 (104) 100 12/23/18 15:18 96 12/23/18 14:51 91 17 Mechanical Ventilator 35 12/23/18 14:50 93 17 35 12/23/18 13:11 90 19 35 12/23/18 12:00 98.2 102 16 140/81 (100) 100 12/23/18 12:00 Mechanical Ventilator 12/23/18 11:29 91 12/23/18 11:09 97 19 35 12/23/18 09:07 100 23 35 12/23/18 08:00 97.7 96 20 129/78 (95) 99 12/23/18 08:00 Mechanical Ventilator 12/23/18 08:00 93 12/23/18 07:20 99 17 35 12/23/18 05:21 88 19 35 12/23/18 04:00 Mechanical Ventilator 12/23/18 04:00 88 12/23/18 04:00 98.4 99 17 135/78 (97) 100 12/23/18 03:00 91 16 35 12/23/18 01:11 90 20 35 12/23/18 00:00 89 12/23/18 00:00 99.0 89 16 126/70 (88) 100 12/23/18 00:00 Mechanical Ventilator 12/22/18 22:57 94 16 35 Intake and Output 12/22/18 12/23/18 19:00 07:00 Intake Total 932.5 ml 917.5 ml Output Total 725 ml Balance 207.5 ml 917.5 ml Intake Free Water 80 ml 120 ml IV Total 192.5 ml 137.5 ml Tube Feeding 660 ml 660 ml Output Urine Total 725 ml Laboratory Tests 12/23/18 03:30: White Blood Count 14.0H, Red Blood Count 3.48L, Hemoglobin 9.7L, Hematocrit 29.8L, Mean Corpuscular Volume 86, Mean Corpuscular Hemoglobin 27.9, Mean Corpuscular Hemoglobin Concent 32.6, Red Cell Distribution Width 14.9H, Platelet Count 325, Mean Platelet Volume 7.1, Neutrophils (%) (Auto) 69.9, Lymphocytes (%) (Auto) 11.9L, Monocytes (%) (Auto) 11.3H, Eosinophils (%) (Auto ) 6.0H, Basophils (%) (Auto) 1.0, Sodium Level 133L, Potassium Level 5.6H, Chloride Level 98, Carbon Dioxide Level 26, Anion Gap 9, Blood Urea Nitrogen 29H , Creatinine 1.2, Estimat Glomerular Filtration Rate 59.9, Glucose Level 151H, Calcium Level 9.4, Total Bilirubin 0.2, Aspartate Amino Transf (AST/SGOT) 20, Alanine Aminotransferase (ALT/SGPT) 25, Alkaline Phosphatase 92, Pro-B-Type Natriuretic Peptide 724H, Total Protein 7.2, Albumin 2.2L, Globulin 5.0, Albumin /Globulin Ratio 0.4L Height (Feet): 5 Height (Inches): 10.00 Weight (Pounds): 142 Cardiovascular: normal rate Respiratory/Chest: lungs clear Abdomen: soft Sven Johns MD Dec 23, 2018 21:43
[2018-12-24] VITALS: BP 117/79
[2018-12-24] MEDS: Sucralfate 1gm tab GT SCH ×4 (00:41→18:21)
[2018-12-24 04:00] VITALS: BP 124/72
[2018-12-24 04:42] LABS: EOSINOPHILS % (AUTO) 2.5 % (0.0-3.0); HEMATOCRIT 30.1 % (42.0-52.0); HEMOGLOBIN 9.9 G/DL (14.2-18.0); MEAN CORPUSCULAR VOLUME 83 FL (80-99); MONOCYTES % (AUTO) 10.2 % (1.0-10.0); NEUTROPHILS % (AUTO) 74.3 % (45.0-75.0); PLATELET COUNT 368 K/UL (150-450); RED BLOOD COUNT 3.61 M/UL (4.70-6.10); RED CELL DISTRIBUTION WIDTH 14.4 % (11.6-14.8); WHITE BLOOD COUNT 15.7 K/UL (4.8-10.8)
[2018-12-24 05:08] LABS: ALANINE AMINOTRANSFERASE 17 U/L (12-78); ALBUMIN 2.2 G/DL (3.4-5.0); ALBUMIN/GLOBULIN RATIO 0.4 (1.0-2.7); ALKALINE PHOSPHATASE 99 U/L (46-116); ANION GAP 12 mmol/L (5-15); ASPARTATE AMINO TRANSFERASE 15 U/L (15-37); BILIRUBIN,TOTAL 0.3 MG/DL (0.2-1.0); BLOOD UREA NITROGEN 34 mg/dL (7-18); CARBON DIOXIDE 25 MMOL/L (21-32); CHLORIDE 93 MMOL/L (98-107); CREATININE 1.1 MG/DL (0.55-1.30); PHOSPHORUS 4.9 MG/DL (2.5-4.9); SODIUM 130 MMOL/L (136-145)
--- NOTE | 2018-12-24 07:52 | NUR ---
HAND-OFF: Report given to Jeannie Cisneros RN. Patietn in bed with no signs of distress.
--- NOTE | 2018-12-24 07:55 | NUR ---
NURSE NOTES: report received from Michelle RN/Eric Juan RN.Pt awake,obtunded noted no resp distress ,with trach tube to vent,on current settings,tolerating well,no signs of pain or discomfort,SR on the monitor.GTF off,pt NPO for CT scan of abdomen ,PRASHANTH PICC line intact ,skin warm and dry AR upx2 HOB elevated bed lock in lowest position ,will continue with plans of care.
[2018-12-24 08:00] VITALS: BP 127/73
--- NOTE | 2018-12-24 08:16 | Pulmonolgy Critical Care Note ---
Critical Care - Asmt/Plan Problems: (1) Respiratory failure, [id number] (2) Aspiration pneumonia (3) Severe sepsis (4) Anemia (5) Psychosis (6) Hypothyroidism (7) Severe protein-calorie malnutrition (8) Feeding by G-tube Respiratory: monitor respiratory rate, adjust FIO2, CXR Cardiac: continue to monitor HR/BP Infectious Disease: check cultures Gastrointestinal: continue feedings/current rate Endocrine: monitor blood sugar Hematologic: monitor H/H Neurologic: PRN Morphine Affect: PRN ativan Prophylaxis: Heparin Time Spent (Minutes): 40 Notes Reviewed: cardio, 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 with: nurses, consultants, nurse case managerassistant general manager - Objective Last 24 Hour Vital Signs Date Time Temp Pulse Resp B/P (MAP) Pulse Ox O2 Delivery O2 Flow Rate FiO2 12/24/18 06:55 98 17 35 12/24/18 05:13 99 17 35 12/24/18 04:00 35 12/24/18 04:00 98.7 98 20 124/72 (89) 100 12/24/18 04:00 Mechanical Ventilator 12/24/18 04:00 99 12/24/18 03:27 96 16 35 12/24/18 01:05 102 18 35 12/24/18 00:00 106 12/24/18 00:00 35 12/24/18 00:00 99.7 100 20 117/79 (92) 100 12/24/18 00:00 Mechanical Ventilator 12/23/18 22:54 105 22 35 12/23/18 21:17 100 20 35 12/23/18 20:04 Mechanical Ventilator 12/23/18 20:00 98.2 97 18 131/96 (108) 100 12/23/18 20:00 35 12/23/18 20:00 101 12/23/18 19:30 101 21 35 12/23/18 17:26 95 16 35 12/23/18 16:00 Mechanical Ventilator 12/23/18 16:00 98.8 92 18 148/82 (104) 100 12/23/18 15:18 96 12/23/18 14:51 91 17 Mechanical Ventilator 35 12/23/18 14:50 93 17 35 12/23/18 13:11 90 19 35 12/23/18 12:00 98.2 102 16 140/81 (100) 100 12/23/18 12:00 Mechanical Ventilator 12/23/18 11:29 91 12/23/18 11:09 97 19 35 12/23/18 09:07 100 23 35 Status: awake Condition: critical, grave HEENT: atraumatic Heart: HR/BP stable Abdomen: soft, non-tender Extremities: no C/C/E Critical Care - Subjective ROS Limited/Unobtainable: Yes Condition: critical FI02: 35 Vent Support Breath Rate: 16 Vent Support Mode: AC Vent Tidal Volume: 600 Sputum Amount: Small PEEP: 5.0 PIP: 24 Tube Feeding Amount: 60 I&O: Intake and Output 12/23/18 12/24/18 19:00 07:00 Intake Total 1080 ml 640 ml Output Total 1200 ml 1000 ml Balance -120 ml -360 ml IV Total 220 ml 220 ml Tube Feeding 360 ml 420 ml Other 500 ml Output Urine Total 1200 ml 1000 ml # Bowel Movements 2 2 CXR: cxr is clear Labs: Laboratory Tests Test 12/24/18 04:15 White Blood Count 15.7 K/UL (4.8-10.8) H Red Blood Count 3.61 M/UL (4.70-6.10) L Hemoglobin 9.9 G/DL (14.2-18.0) L Hematocrit 30.1 % (42.0-52.0) L Mean Corpuscular Volume 83 FL (80-99) Mean Corpuscular Hemoglobin 27.6 PG (27.0-31.0) Mean Corpuscular Hemoglobin Concent 33.1 G/DL (32.0-36.0) Red Cell Distribution Width 14.4 % (11.6-14.8) Platelet Count 368 K/UL (150-450) Mean Platelet Volume 7.1 FL (6.5-10.1) Neutrophils (%) (Auto) 74.3 % (45.0-75.0) Lymphocytes (%) (Auto) 12.0 % (20.0-45.0) L Monocytes (%) (Auto) 10.2 % (1.0-10.0) H Eosinophils (%) (Auto) 2.5 % (0.0-3.0) Basophils (%) (Auto) 1.0 % (0.0-2.0) Erythrocyte Sedimentation Rate 112 MM/HR (0-20) H Sodium Level 130 MMOL/L (136-145) L Potassium Level 4.0 MMOL/L (3.5-5.1) Chloride Level 93 MMOL/L (98-107) L Carbon Dioxide Level 25 MMOL/L (21-32) Anion Gap 12 mmol/L (5-15) Blood Urea Nitrogen 34 mg/dL (7-18) H Creatinine 1.1 MG/DL (0.55-1.30) Estimat Glomerular Filtration Rate > 60 mL/min (>60) Glucose Level 92 MG/DL (74-106) Calcium Level 9.0 MG/DL (8.5-10.1) Phosphorus Level 4.9 MG/DL (2.5-4.9) Magnesium Level 1.9 MG/DL (1.8-2.4) Total Bilirubin 0.3 MG/DL (0.2-1.0) Aspartate Amino Transf (AST/SGOT) 15 U/L (15-37) Alanine Aminotransferase (ALT/SGPT) 17 U/L (12-78) Alkaline Phosphatase 99 U/L (46-116) C-Reactive Protein, Quantitative 14.7 mg/dL (0.00-0.90) H Total Protein 7.7 G/DL (6.4-8.2) Albumin 2.2 G/DL (3.4-5.0) L Globulin 5.5 g/dL Albumin/Globulin Ratio 0.4 (1.0-2.7) L Huma Keating MD Dec 24, 2018 08:16
--- NOTE | 2018-12-24 09:00 | NUR ---
NURSE NOTES: oral/tracheal secretions suctioned PRN.Pt with large amount of frothy white secretions coming from the mouth.
--- NOTE | 2018-12-24 09:14 | NUR ---
MOTEL OPERATORPROCUREMENT MANAGER SI:ANEMIA . ASPIRATION PNA VS: BP 127/73, P 99, T 97.9, RR 20, SpO2 100 on VENT AC 16, TV 600, PEEP 5.0, FiO2 35 WBC 15.7, RBC 3.61, Hgb 9.9, Hct 30.1, Na 130, BUN 34 IS:SUCRALFATE 1gm SYNTHROID 75mcg HEPARIN SUBQ PREVACID 30mg VANCOMYCIN 110ml IVPB SDU STATUS
[2018-12-24] MEDS: Tigecycline 50 MG in NS 110 ML IVPB SCH ×2 (09:48→20:05)
[2018-12-24] MEDS: Heparin 5000 units/ml inj SUBQ SCH ×2 (09:50→20:05)
--- NOTE | 2018-12-24 11:51 | Infectious Diseases Prog Note ---
Assessment/Plan Assessment/Plan Assessment: Leukocytosis - Stable - PEG site with puruelnt discharge 12/18/18 Cx growing KPC K pna (S Tigecycline), ESBL E. coli (S Tigecycline ) and CoNS -CXR: No acute process. Right basilar atelectasis -Sp cx 12/09/18 E.coli (ESBL), P.a. 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 diff Dysphagia s/p G-tube Anemia. CVA/TIA w/ hemiplegia functional quadriplegia chronic encephalopathy CAD CHF Dm2 GIB s/p multiple EGDs in the past hx of severe esophagitis schizoaffective disease [facility] resident multiple admissions VRE colonization Plan: - Cont Vancomcyin and tigecycline #2 for PEG site infection - f/u CT to evaluate for abscess around G tube site - 12/23/18 SP Zosyn #11, inhaled colistin #8 for MDR P.a.for sputum organism and Fluconazole #7 for Yeast it the urine - 12/12 S/P Vancomycin and Cefepime #5 -12/08 SP Levaquin x1 -11/06 SP Amikacin #6 -11/01 SP Meropenem #4 -10/29 SP IV Vanco #2, Cefepime #2 and Tigecycline #1 -10/28 SP LEavquin x1 -10/09 SP Ertapenem #5 - 10/04 SP Meropenem #2 -10/03/18 SP IV Vancomycin #2 and Cefepime #2 -08/09/18 SP Bactrim #7 -08/03 SP Vancomycin and Cefepime #3 -08/01/18 SP Ceftriaxone x1 -Monitor CBC/CMP, temperatures -Peg/trach care -aspiration precautions Will continue to follow along with you. Subjective Allergies: Coded Allergies: NO KNOWN DRUG ALLERGIES (Verified Allergy, Unknown, 09/11/16) Subjective afebrile leukocytosis CT abd p Objective Vital Signs Last 24 Hour Vital Signs Date Time Temp Pulse Resp B/P (MAP) Pulse Ox O2 Delivery O2 Flow Rate FiO2 12/24/18 10:50 101 23 35 12/24/18 08:56 95 18 35 12/24/18 08:00 97.9 96 18 127/73 (91) 100 12/24/18 07:38 97 12/24/18 06:55 98 17 35 12/24/18 05:13 99 17 35 12/24/18 04:00 35 12/24/18 04:00 98.7 98 20 124/72 (89) 100 12/24/18 04:00 Mechanical Ventilator 12/24/18 04:00 99 12/24/18 03:27 96 16 35 12/24/18 01:05 102 18 35 12/24/18 00:00 106 12/24/18 00:00 35 12/24/18 00:00 99.7 100 20 117/79 (92) 100 12/24/18 00:00 Mechanical Ventilator 12/23/18 22:54 105 22 35 12/23/18 21:17 100 20 35 12/23/18 20:04 Mechanical Ventilator 12/23/18 20:00 98.2 97 18 131/96 (108) 100 12/23/18 20:00 35 12/23/18 20:00 101 12/23/18 19:30 101 21 35 12/23/18 17:26 95 16 35 12/23/18 16:00 Mechanical Ventilator 12/23/18 16:00 98.8 92 18 148/82 (104) 100 12/23/18 15:18 96 12/23/18 14:51 91 17 Mechanical Ventilator 35 12/23/18 14:50 93 17 35 12/23/18 13:11 90 19 35 12/23/18 12:00 98.2 102 16 140/81 (100) 100 12/23/18 12:00 Mechanical Ventilator Height (Feet): 5 Height (Inches): 10.00 Weight (Pounds): 142 Objective Status: awake Condition: critical HEENT: atraumatic Neck: full ROM, trach Lungs: rales, rhonchi Heart: HR/BP stable, HR/BP unstable Abdomen: soft, non-tender Extremities: edema Decubiti: location Laboratory Tests Test 12/24/18 04:15 White Blood Count 15.7 K/UL (4.8-10.8) H Red Blood Count 3.61 M/UL (4.70-6.10) L Hemoglobin 9.9 G/DL (14.2-18.0) L Hematocrit 30.1 % (42.0-52.0) L Mean Corpuscular Volume 83 FL (80-99) Mean Corpuscular Hemoglobin 27.6 PG (27.0-31.0) Mean Corpuscular Hemoglobin Concent 33.1 G/DL (32.0-36.0) Red Cell Distribution Width 14.4 % (11.6-14.8) Platelet Count 368 K/UL (150-450) Mean Platelet Volume 7.1 FL (6.5-10.1) Neutrophils (%) (Auto) 74.3 % (45.0-75.0) Lymphocytes (%) (Auto) 12.0 % (20.0-45.0) L Monocytes (%) (Auto) 10.2 % (1.0-10.0) H Eosinophils (%) (Auto) 2.5 % (0.0-3.0) Basophils (%) (Auto) 1.0 % (0.0-2.0) Erythrocyte Sedimentation Rate 112 MM/HR (0-20) H Sodium Level 130 MMOL/L (136-145) L Potassium Level 4.0 MMOL/L (3.5-5.1) Chloride Level 93 MMOL/L (98-107) L Carbon Dioxide Level 25 MMOL/L (21-32) Anion Gap 12 mmol/L (5-15) Blood Urea Nitrogen 34 mg/dL (7-18) H Creatinine 1.1 MG/DL (0.55-1.30) Estimat Glomerular Filtration Rate > 60 mL/min (>60) Glucose Level 92 MG/DL (74-106) Calcium Level 9.0 MG/DL (8.5-10.1) Phosphorus Level 4.9 MG/DL (2.5-4.9) Magnesium Level 1.9 MG/DL (1.8-2.4) Total Bilirubin 0.3 MG/DL (0.2-1.0) Aspartate Amino Transf (AST/SGOT) 15 U/L (15-37) Alanine Aminotransferase (ALT/SGPT) 17 U/L (12-78) Alkaline Phosphatase 99 U/L (46-116) C-Reactive Protein, Quantitative 14.7 mg/dL (0.00-0.90) H Total Protein 7.7 G/DL (6.4-8.2) Albumin 2.2 G/DL (3.4-5.0) L Globulin 5.5 g/dL Albumin/Globulin Ratio 0.4 (1.0-2.7) L Current Medications Medications (Trade) Dose Ordered Sig/Wanda Route PRN Reason Start Time Stop Time Status Last Admin Dose Admin Acetaminophen (Tylenol) 650 mg Q4H PRN GT Mild Pain/Temp > 100.5 12/15/18 10:45 01/14/19 10:44 12/16/18 18:24 Barium Sulfate (Readi-Cat 2) 450 ml NOW PRN ORAL Radiology Procedure 12/23/18 10:45 12/25/18 10:32 12/23/18 15:00 Chlorhexidine Gluconate (Jasmin-Hex 2%) 1 applic DAILY@2000 TOPIC 12/11/18 20:00 01/10/19 19:59 12/23/18 20:10 Dextrose (Dextrose 50%) 25 ml Q30M PRN IV Hypoglycemia 12/08/18 16:15 01/07/19 16:14 Dextrose (Dextrose 50%) 50 ml Q30M PRN IV hypoglycemia 12/08/18 16:15 01/07/19 16:14 Heparin Sodium (Porcine) (Heparin 5000 units/ml) 5,000 units EVERY 12 HOURS SUBQ 12/08/18 21:00 01/07/19 20:59 12/24/18 09:50 Lansoprazole (Prevacid) 30 mg DAILY GT 12/18/18 09:00 01/17/19 08:59 12/24/18 09:48 Levothyroxine Sodium (Synthroid) 75 mcg Q24H GT 12/09/18 06:30 01/08/19 06:29 12/24/18 06:01 Ondansetron HCl (Zofran) 4 mg Q6H PRN IVP Nausea & Vomiting 12/08/18 16:00 01/07/19 15:59 Polyethylene Glycol (Miralax) 17 gm DAILYPRN PRN GT Constipation 12/15/18 10:45 01/07/19 15:59 Sucralfate (Carafate) 1 gm EVERY 6 HOURS GT 12/15/18 18:00 01/07/19 17:59 12/24/18 05:48 Tigecycline 50 mg/ Sodium Chloride 110 ml @ 220 mls/hr EVERY 12 HOURS IVPB 12/23/18 21:00 12/30/18 20:59 12/24/18 09:48 Vancomycin HCl (Vanco rx to dose) 1 ea DAILY PRN MISC PER PHARMACY 12/23/18 09:30 01/22/19 09:29 Vancomycin HCl 500 mg/Dextrose 110 ml @ 110 mls/hr Q12HR@1100,2300 IVPB 12/23/18 11:00 12/28/18 10:59 12/23/18 22:41 Lisy Lai M.D. Dec 24, 2018 11:51
[2018-12-24 12:00] VITALS: BP 139/60
--- NOTE | 2018-12-24 12:00 | NUR ---
NURSE NOTES: Pt brought downstairs for CT scan of abdomen,accompanied by Maria TeresaRN and transporter,procedure tolerated well.Pt back to unit at 1230pm.
[2018-12-24] MEDS: Vancomycin 500mg/D5W 110ml IVPB SCH ×2 (12:39)
--- NOTE | 2018-12-24 13:29 | NUR ---
RD ASSESSMENT & RECOMMENDATIONS SEE CARE ACTIVITY FOR COMPLETE ASSESSMENT DAILY ESTIMATED NEEDS: Needs based on Critical care, underweight, wound TF ELECTRONIC DATA INTERCHANGE SPECIALIST 56.8kg 30-35 kcals/kg 7268-7163 total kcals 1.25-2 g protein/kg 71-114 g total protein 25-30 mL/kg 8441-7003 total fluid mLs NUTRITION DIAGNOSIS: Swallowing difficulty R/T respiratory status as evidenced by pt vent dep via trach, PEG dep. ENTERAL NUTRITION RECOMMENDATIONS: Osmolite 1.5 @ 60ml/hr x 22 hrs to provide 1320ml, 1980kcal, 83g prot, 1006ml free water * Continue current TF as tolerated * HOLD TF 1h before and 1 after Synthroid administration. * Flush per MD/ HOB over 30 degrees ADDITIONAL RECOMMENDATIONS: * Calibrated bedscale weight for accurate CBW, weekly wt monitoring * Monitor need for TF change and/or accucheck w/ SSI - h/o DM + hyperglycemia * Monitor lytes w/ TF, replete as needed * Wound care: add JOYCELYN UNFLAVORED BID via GT
--- NOTE | 2018-12-24 13:41 | NUR ---
*-*INSURANCE *-* UPDATED CLINICALS & REVIEW HAVE BEEN FAXED TO: [facility]: JOSE Soares P- [phone] F- [phone]...REVIEW/CLINICAL
[2018-12-24 16:00] VITALS: BP 116/84
--- NOTE | 2018-12-24 17:21 | Diagnostic Imaging Report ---
Clinical Indication: Abdominal pain, infected gastrostomy site Technique: Patient given enteric contrast IV administration nonionic contrast. Venous phase spiral acquisition obtained through the abdomen and pelvis. Multiplanar reconstructions were generated. Total dose length product 922 mGycm. CTDIvol(s) 15.9 mGy. Dose reduction achieved using automated exposure control Comparison: 01/19/2016 noncontrast study Findings: There is a 18 x 12 mm calculus within the proximal left ureter, approximately 5 cm distal to the ureteropelvic junction. There is resultant moderate hydronephrosis. There is heterogeneous attenuation of the renal parenchyma. There is also thinning of the renal parenchyma. There is periureteral and perinephric and peripelvic fat stranding. Anterior to the proximal ureter, and within or adjacent to Gerota's fascia, there is an irregular multi loculated collection with central fluid and an enhancing rim which measures 7 x 2.6 x 4.9 cm. At least 3 adjacent calculi are seen in a lower left pole calyx, largest measuring 5 mm long axis dimension, and another situated more inferiorly. Only a a few small punctate calculi are seen in the renal collecting system on the previous study. The right kidney demonstrates multiple small calyceal calculi, measuring up to 4 mm in diameter, none of which are evident on the prior exam. No right hydronephrosis or ureteral calculi are demonstrated. No focal renal parenchymal abnormality is seen on the right. The previously demonstrated Victor catheter is no longer evident. The bladder demonstrates wall thickening, somewhat asymmetric in the right lateral and posterior hauser. The previously demonstrated bladder calcifications are no longer evident. A subcentimeter low-attenuation lesion is seen in the right renal upper pole, too small to characterize The rectum is distended by stool, although less so than on the prior exam, currently measuring 8 cm transverse diameter. There is equivocal minimal rectal wall thickening. No evidence of diverticulosis or diverticulitis. The appendix is not definitely demonstrated, but there are no findings to suggest acute appendicitis. No small bowel distention or small bowel wall thickening. There is a gastrostomy in good position within the gastric body. No significant infiltration of the fat around the shaft or fluid collections around the shaft of the gastrostomy are noted. The stomach is otherwise unremarkable. The distal esophagus is unremarkable. Previously demonstrated nasogastric tube is no longer present. There is marked laxity of the central lower abdominal wall musculature, resulting in distortion of the enteric anatomy. No james herniation or obstruction demonstrated, however. This is a new finding since the previous exam. The liver, gallbladder, bile ducts, pancreas, spleen, adrenals are unremarkable. No pelvic mass or adenopathy. The included lung bases demonstrate some consolidation and atelectasis in the right lower lobe. Groundglass opacities in the inferior right middle lobe are probably on the basis of compressive atelectatic changes. The bones demonstrate degenerative spondylosis changes. A calcification, probably granulomatous, is seen just lateral to the mid to distal esophagus on the highest cuts Impression: Positive for 18 x 12 mm calculus within the proximal left ureter, approximately 5 cm distal to ureteropelvic junction. This results in moderate left hydronephrosis. Thinning of the cortex suggests that this is likely long-standing Abnormal appearance to the left proximal ureteral and renal pelvic urothelium as well as of the renal parenchyma, consistent with nephritis, pyelitis, and ureter right is. Multiloculated fluid collection with rim enhancement anterior to the proximal ureter adjacent to the stone. This is probably an abscess related to the stone and a pyelitis. Unusually, however, it appears largely anterior to Gerota's fascia rather than within it. Bladder wall thickening, suggests cystitis or chronic bladder outlet obstruction. Given the asymmetry of the bladder wall thickening, the possibility of tumor should also be considered Nonobstructive bilateral intrarenal calculi, new/increased since prior exam of 01/19/2016 Rectal distention with stool. Mild rectal wall thickening. Findings could indicate fecal impaction with associated stercoral proctitis. However, findings are somewhat similar to the prior 2016 exam and could just be baseline for this patient. Gastrostomy in good position. No apparent complication associated with such Marked laxity of the central lower abdominal wall musculature resulting in anterior protuberance of the abdomen and contents, without definite james herniation or obstruction Basilar atelectatic changes Probable granulomatous calcification within the mediastinum Subcentimeter low-attenuation right upper pole renal lesion, too small to characterize, most likely benign simple cortical cyst. No further follow-up necessary Findings discussed by phone with Dr. Keating at the time of interpretation The CT scanner at [facility] is accredited by the [employer] and the scans are performed using protocols designed to limit radiation exposure to as low as reasonably achievable to attain images of sufficient resolution adequate for diagnostic evaluation.
--- NOTE | 2018-12-24 18:00 | NUR ---
NURSE NOTES: pt with another diarrhea stools,bed bath given, kept dry and clean ,turned and repositioned
--- NOTE | 2018-12-24 19:35 | NUR ---
HAND-OFF: Report given to Temi Ni RN.
--- NOTE | 2018-12-24 19:36 | NUR ---
NURSE NOTES: BEDSIDE REPORT FROM ODILIA MACKEY. PT IS BEDBOUND, NONVERBAL, OPENS EYES SPONTANEOUSLY, AND WITHDRAWS TO PAIN. FISHERIES INSPECTOR SHOWING NSR. VENTILATOR SETTINGS: PORTEX 8, AC 16, TV 600, FIO2 35%, PEEP 5; TOLERATING WELL. GT RUNNING OSMOLYTE 1.5 @ 60 X 22 HOURS; NO RESIDUAL. SKIN IS CLEAN, DRY, DRESSINGS INTACT. CONDOM CATH INTACT, DRAINING. PRASHANTH PICC; ASYMPTOMATIC. BED IS LOCKED IN LOWEST POSITION, SIDERAILS X3, SZ PRECAUTIONS CONTINUED, CALL AYALA W/ IN REACH, BED ALARM ON. WILL CONTINUE TO MONITOR AND FOLLOW PLAN OF CARE.
[2018-12-24 20:00] VITALS: BP 123/71
[2018-12-24] MEDS: Dyna-Hex 2% Top Sol 2oz TOPIC SCH (20:03)
--- NOTE | 2018-12-24 21:41 | General Progress Note ---
Assessment/Plan Problem List: (1) Severe protein-calorie malnutrition ICD Codes: E43 - Unspecified severe protein-calorie malnutrition SNOMED: 482096831 (2) Feeding by G-tube ICD Codes: Z93.1 - Gastrostomy status SNOMED: 936185167, 651522181 (3) Anemia ICD Codes: D64.9 - Anemia, unspecified SNOMED: 506451882 (4) Chronic respiratory failure ICD Codes: J96.10 - Chronic respiratory failure, unspecified whether with hypoxia or hypercapnia SNOMED: 79498386 (5) Esophagitis ICD Codes: K20.9 - Esophagitis SNOMED: 08214305 (6) Hypothyroidism ICD Codes: E03.9 - Hypothyroidism, unspecified SNOMED: 59494102 (7) Aspiration pneumonia ICD Codes: J69.0 - Pneumonitis due to inhalation of food and vomit SNOMED: 083551688 (8) Leukocytosis ICD Codes: D72.829 - Elevated white blood cell count, unspecified SNOMED: 708069118, 973081477 Qualifiers: Qualified Codes: D72.828 - Other elevated white blood cell count (9) Contracture of multiple joints ICD Codes: M24.50 - Contracture, unspecified joint SNOMED: 91084495, 406051367 Status: progressing Assessment: anemia malnutrition moniter for bleeding gerd pna improved vitals stable Subjective ROS Limited/Unobtainable: Yes Allergies: Coded Allergies: NO KNOWN DRUG ALLERGIES (Verified Allergy, Unknown, 09/11/16) Objective Last 24 Hour Vital Signs Date Time Temp Pulse Resp B/P (MAP) Pulse Ox O2 Delivery O2 Flow Rate FiO2 12/24/18 21:00 84 19 35 12/24/18 19:28 81 18 35 12/24/18 17:26 92 21 35 12/24/18 16:00 35 12/24/18 16:00 Mechanical Ventilator 12/24/18 16:00 97.9 92 18 116/84 (95) 100 12/24/18 15:29 94 19 35 12/24/18 15:14 94 12/24/18 12:40 88 16 35 12/24/18 12:11 93 12/24/18 12:00 97.9 99 22 139/60 (86) 99 12/24/18 12:00 35 12/24/18 12:00 Mechanical Ventilator 12/24/18 10:50 101 23 35 12/24/18 08:56 95 18 35 12/24/18 08:00 Mechanical Ventilator 12/24/18 08:00 35 12/24/18 08:00 97.9 96 18 127/73 (91) 100 12/24/18 07:38 97 12/24/18 06:55 98 17 35 12/24/18 05:13 99 17 35 12/24/18 04:00 35 12/24/18 04:00 98.7 98 20 124/72 (89) 100 12/24/18 04:00 Mechanical Ventilator 12/24/18 04:00 99 12/24/18 03:27 96 16 35 12/24/18 01:05 102 18 35 12/24/18 00:00 106 12/24/18 00:00 35 12/24/18 00:00 99.7 100 20 117/79 (92) 100 12/24/18 00:00 Mechanical Ventilator 12/23/18 22:54 105 22 35 Intake and Output 12/23/18 12/24/18 18:59 06:59 Intake Total 980 ml 800 ml Output Total 2200 ml Balance 980 ml -1400 ml IV Total 220 ml 220 ml Tube Feeding 360 ml 480 ml Other 400 ml 100 ml Output Urine Total 2200 ml # Bowel Movements 1 3 Laboratory Tests 12/24/18 04:15: White Blood Count 15.7H, Red Blood Count 3.61L, Hemoglobin 9.9L, Hematocrit 30.1L, Mean Corpuscular Volume 83, Mean Corpuscular Hemoglobin 27.6, Mean Corpuscular Hemoglobin Concent 33.1, Red Cell Distribution Width 14.4, Platelet Count 368, Mean Platelet Volume 7.1, Neutrophils (%) (Auto) 74.3, Lymphocytes (% ) (Auto) 12.0L, Monocytes (%) (Auto) 10.2H, Eosinophils (%) (Auto) 2.5, Basophils (%) (Auto) 1.0, Erythrocyte Sedimentation Rate 112H, Sodium Level 130L , Potassium Level 4.0, Chloride Level 93L, Carbon Dioxide Level 25, Anion Gap 12 , Blood Urea Nitrogen 34H, Creatinine 1.1, Estimat Glomerular Filtration Rate > 60, Glucose Level 92, Calcium Level 9.0, Phosphorus Level 4.9, Magnesium Level 1.9, Total Bilirubin 0.3, Aspartate Amino Transf (AST/SGOT) 15, Alanine Aminotransferase (ALT/SGPT) 17, Alkaline Phosphatase 99, C-Reactive Protein, Quantitative 14.7H, Total Protein 7.7, Albumin 2.2L, Globulin 5.5, Albumin/ Globulin Ratio 0.4L Height (Feet): 5 Height (Inches): 10.00 Weight (Pounds): 142 Cardiovascular: normal rate Respiratory/Chest: lungs clear Abdomen: soft Sven Johns MD Dec 24, 2018 21:41
[2018-12-25] VITALS: BP 133/76
[2018-12-25] MEDS: Sucralfate 1gm tab GT SCH ×5 (00:04→23:16)
[2018-12-25] MEDS: Vancomycin 500mg/D5W 110ml IVPB SCH ×6 (00:06→23:15)
[2018-12-25 04:00] VITALS: BP 137/79
[2018-12-25 04:50] LABS: BASOPHILS % (AUTO) 0.9 % (0.0-2.0); EOSINOPHILS % (AUTO) 2.1 % (0.0-3.0); HEMATOCRIT 30.1 % (42.0-52.0); LYMPHOCYTES % (AUTO) 13.4 % (20.0-45.0); MEAN CORPUSCULAR VOLUME 83 FL (80-99); MONOCYTES % (AUTO) 12.4 % (1.0-10.0); NEUTROPHILS % (AUTO) 71.1 % (45.0-75.0); PLATELET COUNT 375 K/UL (150-450); RED CELL DISTRIBUTION WIDTH 14.7 % (11.6-14.8); WHITE BLOOD COUNT 12.7 K/UL (4.8-10.8)
[2018-12-25 05:24] LABS: ALANINE AMINOTRANSFERASE 16 U/L (12-78); ALBUMIN 2.2 G/DL (3.4-5.0); ALBUMIN/GLOBULIN RATIO 0.4 (1.0-2.7); ALKALINE PHOSPHATASE 102 U/L (46-116); ANION GAP 9 mmol/L (5-15); ASPARTATE AMINO TRANSFERASE 16 U/L (15-37); BILIRUBIN,TOTAL 0.3 MG/DL (0.2-1.0); BLOOD UREA NITROGEN 36 mg/dL (7-18); CALCIUM 8.9 MG/DL (8.5-10.1); CARBON DIOXIDE 25 MMOL/L (21-32); CHLORIDE 97 MMOL/L (98-107); CREATININE 1.2 MG/DL (0.55-1.30); PHOSPHORUS 4.6 MG/DL (2.5-4.9); POTASSIUM 3.4 MMOL/L (3.5-5.1); SODIUM 131 MMOL/L (136-145)
--- NOTE | 2018-12-25 07:00 | NUR ---
RESPIRATORY NOTE: received pt on vent, trach with portex 8; midline and patent. on current vent settings with no resp distress noted. ambu bag at bedside with alarms set and audible. trach is secured via trach tie/guard with no redness or skin tears visible. will cont to monitor.
--- NOTE | 2018-12-25 07:15 | NUR ---
HAND-OFF: Report given to ODILIA Dennis.
--- NOTE | 2018-12-25 07:20 | NUR ---
NURSE NOTES: Report received from Temi Ni RN.Pt awake,obtunded noted no resp distress,trach -Vent dependent,on current settings,tolerating well,no signs of pain or discomfort,SR on the monitor,GTF Osmolite 1.5 at 60 ml/hr,no residual noted,condom cath in placed draining yellow ,IV site to PRASHANTH PICC line intact ,skin warm and dry,SR up x2 HOB elevated ,bed lock in lowest position,will continue with plans of care.
--- NOTE | 2018-12-25 07:43 | NUR ---
NURSE NOTES:WOUND CARE FOLLOW-UP NOTES: Pt's wounds resolving. Non-blanchable erythema without fluctuance /induration L elbow. R elbow resolved and is pink and blanchable. Thoracic spine resolved and is pink and blanchable.Sacral area and bilat hips are pink and blanchable. Non-blanchable erythema without fluctuance or induration noted to R hallux (L)0.5cm x (W)1.5cm. Periwound is pink and blanchable.Non-blanchable erythema noted to medial/lateralR foot (L)1.2cm x (W)0.9cm. Periwound pink and blanchable. Non-blanchable erythema without induration or fluctuance Lateral malleolus(L)0.8cm x (W)0.7cm.Periwound pink and blanchable. Non-blanchable erythema without induration or fluctuance lateral/medial L foot. Periwound is pink and blanchable. L lateral malleolus resolved and is pink and blanchable.R hallux pink and blanchable. No new skin concerns noted. All wound prevention protocols continued as implemented. Pt has an APM/RENO mattress overlay and observed positioned with pillow including off-loading of heels with pillow.
[2018-12-25 08:00] VITALS: BP 125/83
[2018-12-25] MEDS: Tigecycline 50 MG in NS 110 ML IVPB SCH ×2 (08:44→20:40)
[2018-12-25] MEDS: Heparin 5000 units/ml inj SUBQ SCH ×2 (08:46→20:42)
--- NOTE | 2018-12-25 10:17 | Pulmonolgy Critical Care Note ---
Critical Care - Asmt/Plan Problems: (1) Respiratory failure, [id number] (2) Aspiration pneumonia (3) Severe sepsis (4) Anemia (5) Psychosis (6) Hypothyroidism (7) Severe protein-calorie malnutrition (8) Feeding by G-tube Respiratory: monitor respiratory rate, adjust FIO2, CXR Cardiac: continue to monitor HR/BP Renal: F/U I&O Infectious Disease: check cultures Gastrointestinal: continue feedings/current rate Endocrine: monitor blood sugar, check TSH Hematologic: transfuse if hgb<8.5 Neurologic: PRN Ativan, keep patient comfortable Affect: PRN ativan Time Spent (Minutes): 40 Notes Reviewed: 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 with: nurses, consultants, case management assistantgrounds manager - Objective Last 24 Hour Vital Signs Date Time Temp Pulse Resp B/P (MAP) Pulse Ox O2 Delivery O2 Flow Rate FiO2 12/25/18 08:34 87 19 35 12/25/18 08:00 88 12/25/18 08:00 35 12/25/18 08:00 98.7 100 16 125/83 (97) 100 12/25/18 06:57 85 16 35 12/25/18 05:21 92 22 35 12/25/18 04:00 91 12/25/18 04:00 Mechanical Ventilator 12/25/18 04:00 35 12/25/18 04:00 99.0 94 19 137/79 (98) 100 12/25/18 03:17 90 20 35 12/25/18 01:29 89 21 35 12/25/18 00:00 81 12/25/18 00:00 35 12/25/18 00:00 98.8 87 20 133/76 (95) 100 12/25/18 00:00 Mechanical Ventilator 12/24/18 23:30 87 20 35 12/24/18 21:00 84 19 35 12/24/18 20:00 Mechanical Ventilator 12/24/18 20:00 35 12/24/18 20:00 96.8 84 19 123/71 (88) 100 12/24/18 19:28 81 18 35 12/24/18 19:15 80 12/24/18 17:26 92 21 35 12/24/18 16:00 35 12/24/18 16:00 Mechanical Ventilator 12/24/18 16:00 97.9 92 18 116/84 (95) 100 12/24/18 15:29 94 19 35 12/24/18 15:14 94 12/24/18 12:40 88 16 35 12/24/18 12:11 93 12/24/18 12:00 97.9 99 22 139/60 (86) 99 12/24/18 12:00 35 12/24/18 12:00 Mechanical Ventilator 12/24/18 10:50 101 23 35 Status: awake Condition: critical HEENT: atraumatic Lungs: clear Heart: HR/BP stable, HR/BP unstable Abdomen: soft, active bowel sounds Extremities: no C/C/E, edema Critical Care - Subjective ROS Limited/Unobtainable: Yes Condition: critical EKG Rhythm: Sinus Rhythm FI02: 35 Vent Support Breath Rate: 16 Vent Support Mode: AC Vent Tidal Volume: 600 Sputum Amount: Small PEEP: 5.0 PIP: 27 Tube Feeding Amount: 60 I&O: Intake and Output 12/24/18 12/25/18 19:00 07:00 Intake Total 420 ml 970 ml Output Total 1000 ml 100 ml Balance -580 ml 870 ml Intake Free Water 90 ml IV Total 220 ml Tube Feeding 420 ml 660 ml Output Urine Total 1000 ml 100 ml # Voids 1 # Bowel Movements 6 2 CXR: CT abdomen reviewed, Left uretral stone Labs: Laboratory Tests Test 12/24/18 22:00 12/25/18 04:00 Vancomycin Level Trough 17.4 ug/mL (5.0-12.0) H White Blood Count 12.7 K/UL (4.8-10.8) H Red Blood Count 3.60 M/UL (4.70-6.10) L Hemoglobin 10.0 G/DL (14.2-18.0) L Hematocrit 30.1 % (42.0-52.0) L Mean Corpuscular Volume 83 FL (80-99) Mean Corpuscular Hemoglobin 27.7 PG (27.0-31.0) Mean Corpuscular Hemoglobin Concent 33.2 G/DL (32.0-36.0) Red Cell Distribution Width 14.7 % (11.6-14.8) Platelet Count 375 K/UL (150-450) Mean Platelet Volume 7.0 FL (6.5-10.1) Neutrophils (%) (Auto) 71.1 % (45.0-75.0) Lymphocytes (%) (Auto) 13.4 % (20.0-45.0) L Monocytes (%) (Auto) 12.4 % (1.0-10.0) H Eosinophils (%) (Auto) 2.1 % (0.0-3.0) Basophils (%) (Auto) 0.9 % (0.0-2.0) Erythrocyte Sedimentation Rate 110 MM/HR (0-20) H Sodium Level 131 MMOL/L (136-145) L Potassium Level 3.4 MMOL/L (3.5-5.1) L Chloride Level 97 MMOL/L (98-107) L Carbon Dioxide Level 25 MMOL/L (21-32) Anion Gap 9 mmol/L (5-15) Blood Urea Nitrogen 36 mg/dL (7-18) H Creatinine 1.2 MG/DL (0.55-1.30) Estimat Glomerular Filtration Rate 59.9 mL/min (>60) Glucose Level 141 MG/DL (74-106) H Calcium Level 8.9 MG/DL (8.5-10.1) Phosphorus Level 4.6 MG/DL (2.5-4.9) Magnesium Level 1.9 MG/DL (1.8-2.4) Total Bilirubin 0.3 MG/DL (0.2-1.0) Aspartate Amino Transf (AST/SGOT) 16 U/L (15-37) Alanine Aminotransferase (ALT/SGPT) 16 U/L (12-78) Alkaline Phosphatase 102 U/L (46-116) C-Reactive Protein, Quantitative 27.0 mg/dL (0.00-0.90) H Total Protein 7.5 G/DL (6.4-8.2) Albumin 2.2 G/DL (3.4-5.0) L Globulin 5.3 g/dL Albumin/Globulin Ratio 0.4 (1.0-2.7) L Huma Keating MD Dec 25, 2018 10:17
--- NOTE | 2018-12-25 10:31 | Infectious Diseases Prog Note ---
Assessment/Plan Assessment/Plan Assessment: Leukocytosis - improving - PEG site with puruelnt discharge -Infected obstructive ureteral stone w/ adjacent abscess and moderate L hydronephrosis -12/24 CT abd/p: : Positive for 18 x 12 mm calculus within the proximal left ureter, approximately 5 cm distal to ureteropelvic junction. This results in moderate left hydronephrosis. Thinning of the cortex suggests that this is likely long- standing Abnormal appearance to the left proximal ureteral and renal pelvic urothelium as well as of the renal parenchyma, consistent with nephritis, pyelitis, and ureter right is. Multiloculated fluid collection with rim enhancement anterior to the proximal ureter adjacent to the stone. This is probably an abscess related to the stone and a pyelitis. Unusually, however, it appears largely anterior to Gerota's fascia rather than within it. Bladder wall thickening, suggests cystitis or chronic bladder outlet obstruction. Given the asymmetry of the bladder wall thickening, the possibility of tumor should also be considered. Nonobstructive bilateral intrarenal calculi, new/increased since prior exam of 01/19/2016. Rectal distention with stool. Mild rectal wall thickening. Findings could indicate fecal impaction with associated stercoral proctitis. However, findings are somewhat similar to the prior 2015 exam and could just be baseline for this patient. Gastrostomy in good position. No apparent complication associated with such. Marked laxity of the central lower abdominal wall musculature resulting in anterior protuberance of the abdomen and contents, without definite james herniation or obstruction. Probable granulomatous calcification within the mediastinum 12/18/18 Cx growing KPC K pna (S Tigecycline), ESBL E. coli (S Tigecycline ) and CoNS -CXR: No acute process. Right basilar atelectasis -Sp cx 12/09/18 E.coli (ESBL), P.a. 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 diff Dysphagia s/p G-tube Anemia. CVA/TIA w/ hemiplegia functional quadriplegia chronic encephalopathy CAD CHF Dm2 GIB s/p multiple EGDs in the past hx of severe esophagitis schizoaffective disease group home resident multiple admissions VRE colonization Plan: - Cont Vancomcyin and tigecycline #3 for PEG site infection - u/a w/ reflex -URo evaluation re obstructive L kidney stone w/ adjacent abscess - 12/23/18 SP Zosyn #11, inhaled colistin #8 for MDR P.a.for sputum organism and Fluconazole #7 for Yeast it the urine - 12/12 S/P Vancomycin and Cefepime #5 -12/08 SP Levaquin x1 -11/06 SP Amikacin #6 -11/01 SP Meropenem #4 -10/29 SP IV Vanco #2, Cefepime #2 and Tigecycline #1 -10/28 SP LEavquin x1 -10/09 SP Ertapenem #5 - 10/04 SP Meropenem #2 -10/03/18 SP IV Vancomycin #2 and Cefepime #2 -08/09/18 SP Bactrim #7 -08/03 SP Vancomycin and Cefepime #3 -08/01/18 SP Ceftriaxone x1 -Monitor CBC/CMP, temperatures -Peg/trach care -aspiration precautions Will continue to follow along with you. Discussed with RN and Dr Keating Subjective Allergies: Coded Allergies: NO KNOWN DRUG ALLERGIES (Verified Allergy, Unknown, 09/11/16) Subjective afebrile leukocytosis improving Objective Vital Signs Last 24 Hour Vital Signs Date Time Temp Pulse Resp B/P (MAP) Pulse Ox O2 Delivery O2 Flow Rate FiO2 12/25/18 08:34 87 19 35 12/25/18 08:00 88 12/25/18 08:00 35 12/25/18 08:00 98.7 100 16 125/83 (97) 100 12/25/18 06:57 85 16 35 12/25/18 05:21 92 22 35 12/25/18 04:00 91 12/25/18 04:00 Mechanical Ventilator 12/25/18 04:00 35 12/25/18 04:00 99.0 94 19 137/79 (98) 100 12/25/18 03:17 90 20 35 12/25/18 01:29 89 21 35 12/25/18 00:00 81 12/25/18 00:00 35 12/25/18 00:00 98.8 87 20 133/76 (95) 100 12/25/18 00:00 Mechanical Ventilator 12/24/18 23:30 87 20 35 12/24/18 21:00 84 19 35 12/24/18 20:00 Mechanical Ventilator 12/24/18 20:00 35 12/24/18 20:00 96.8 84 19 123/71 (88) 100 12/24/18 19:28 81 18 35 12/24/18 19:15 80 12/24/18 17:26 92 21 35 12/24/18 16:00 35 12/24/18 16:00 Mechanical Ventilator 12/24/18 16:00 97.9 92 18 116/84 (95) 100 12/24/18 15:29 94 19 35 12/24/18 15:14 94 12/24/18 12:40 88 16 35 12/24/18 12:11 93 12/24/18 12:00 97.9 99 22 139/60 (86) 99 12/24/18 12:00 35 12/24/18 12:00 Mechanical Ventilator 12/24/18 10:50 101 23 35 Height (Feet): 5 Height (Inches): 10.00 Weight (Pounds): 155 Objective Status: awake Condition: critical HEENT: atraumatic Neck: full ROM, trach Lungs: rales, rhonchi Heart: HR/BP stable, HR/BP unstable Abdomen: soft, non-tender Extremities: edema Decubiti: location Laboratory Tests Test 12/24/18 22:00 12/25/18 04:00 Vancomycin Level Trough 17.4 ug/mL (5.0-12.0) H White Blood Count 12.7 K/UL (4.8-10.8) H Red Blood Count 3.60 M/UL (4.70-6.10) L Hemoglobin 10.0 G/DL (14.2-18.0) L Hematocrit 30.1 % (42.0-52.0) L Mean Corpuscular Volume 83 FL (80-99) Mean Corpuscular Hemoglobin 27.7 PG (27.0-31.0) Mean Corpuscular Hemoglobin Concent 33.2 G/DL (32.0-36.0) Red Cell Distribution Width 14.7 % (11.6-14.8) Platelet Count 375 K/UL (150-450) Mean Platelet Volume 7.0 FL (6.5-10.1) Neutrophils (%) (Auto) 71.1 % (45.0-75.0) Lymphocytes (%) (Auto) 13.4 % (20.0-45.0) L Monocytes (%) (Auto) 12.4 % (1.0-10.0) H Eosinophils (%) (Auto) 2.1 % (0.0-3.0) Basophils (%) (Auto) 0.9 % (0.0-2.0) Erythrocyte Sedimentation Rate 110 MM/HR (0-20) H Sodium Level 131 MMOL/L (136-145) L Potassium Level 3.4 MMOL/L (3.5-5.1) L Chloride Level 97 MMOL/L (98-107) L Carbon Dioxide Level 25 MMOL/L (21-32) Anion Gap 9 mmol/L (5-15) Blood Urea Nitrogen 36 mg/dL (7-18) H Creatinine 1.2 MG/DL (0.55-1.30) Estimat Glomerular Filtration Rate 59.9 mL/min (>60) Glucose Level 141 MG/DL (74-106) H Calcium Level 8.9 MG/DL (8.5-10.1) Phosphorus Level 4.6 MG/DL (2.5-4.9) Magnesium Level 1.9 MG/DL (1.8-2.4) Total Bilirubin 0.3 MG/DL (0.2-1.0) Aspartate Amino Transf (AST/SGOT) 16 U/L (15-37) Alanine Aminotransferase (ALT/SGPT) 16 U/L (12-78) Alkaline Phosphatase 102 U/L (46-116) C-Reactive Protein, Quantitative 27.0 mg/dL (0.00-0.90) H Total Protein 7.5 G/DL (6.4-8.2) Albumin 2.2 G/DL (3.4-5.0) L Globulin 5.3 g/dL Albumin/Globulin Ratio 0.4 (1.0-2.7) L Current Medications Medications (Trade) Dose Ordered Sig/Wanda Route PRN Reason Start Time Stop Time Status Last Admin Dose Admin Acetaminophen (Tylenol) 650 mg Q4H PRN GT Mild Pain/Temp > 100.5 12/15/18 10:45 01/14/19 10:44 12/16/18 18:24 Barium Sulfate (Readi-Cat 2) 450 ml NOW PRN ORAL Radiology Procedure 12/23/18 10:45 12/25/18 10:32 12/23/18 15:00 Chlorhexidine Gluconate (Jasmin-Hex 2%) 1 applic DAILY@2000 TOPIC 12/11/18 20:00 01/10/19 19:59 12/24/18 20:03 Dextrose (Dextrose 50%) 25 ml Q30M PRN IV Hypoglycemia 12/08/18 16:15 01/07/19 16:14 Dextrose (Dextrose 50%) 50 ml Q30M PRN IV hypoglycemia 12/08/18 16:15 01/07/19 16:14 Heparin Sodium (Porcine) (Heparin 5000 units/ml) 5,000 units EVERY 12 HOURS SUBQ 12/08/18 21:00 01/07/19 20:59 12/25/18 08:46 Lansoprazole (Prevacid) 30 mg DAILY GT 12/18/18 09:00 01/17/19 08:59 12/25/18 08:44 Levothyroxine Sodium (Synthroid) 75 mcg Q24H GT 12/09/18 06:30 01/08/19 06:29 12/25/18 05:54 Ondansetron HCl (Zofran) 4 mg Q6H PRN IVP Nausea & Vomiting 12/08/18 16:00 01/07/19 15:59 Polyethylene Glycol (Miralax) 17 gm DAILYPRN PRN GT Constipation 12/15/18 10:45 01/07/19 15:59 Potassium Chloride 100 ml @ 100 mls/hr Q1H IVPB 12/25/18 10:15 12/25/18 14:14 UNV Sucralfate (Carafate) 1 gm EVERY 6 HOURS GT 12/15/18 18:00 01/07/19 17:59 12/25/18 05:54 Tigecycline 50 mg/ Sodium Chloride 110 ml @ 220 mls/hr EVERY 12 HOURS IVPB 12/23/18 21:00 12/30/18 20:59 12/25/18 08:44 Vancomycin HCl (Vanco rx to dose) 1 ea DAILY PRN MISC PER PHARMACY 12/23/18 09:30 01/22/19 09:29 Vancomycin HCl 500 mg/Dextrose 110 ml @ 110 mls/hr Q12HR@1100,2300 IVPB 12/23/18 11:00 12/28/18 10:59 12/25/18 00:06 Lisy Lai M.D. Dec 25, 2018 10:31
[2018-12-25 12:00] VITALS: BP 140/68
--- NOTE | 2018-12-25 12:00 | NUR ---
NURSE NOTES: Pt turned and repositioned ,oral /tracheal secretions suctioned PRN.
--- NOTE | 2018-12-25 12:45 | NUR ---
PIT HANDRESPIRATORY CARE PROGRAM DIRECTOR SI: ANEMIA . ASPIRATION PNA VS: BP 125/83, P 100, T 98.7, RR 22, SpO2 100 on VENT AC 16, TV 600, PEEP 5.0, FiO2 35 WBC 12.7, RBC 3.60, Hgb 10.0, Hct 30.1, K 3.4, BUN 36 IS: TIGECYCLINE 50mg 110ml IVPB VANCOMYCIN 110ml IVPB PREVACID 30mg SUCRALFATE 1gm SYNTHROID 75mcg HEPARIN SUBQ SDU STATUS
--- NOTE | 2018-12-25 15:12 | NUR ---
*-*INSURANCE *-* UPDATED CLINICALS & REVIEW HAVE BEEN FAXED TO: [facility]: JOSE Soares P- [phone] F- [phone]...REVIEW/CLINICAL
[2018-12-25] MEDS ORDERED: NS 275ml ONE (15:52)
[2018-12-25] MEDS ORDERED: Tubing IV Secondary IV ONE (15:52)
[2018-12-25 16:00] VITALS: BP 125/93
--- NOTE | 2018-12-25 17:00 | NUR ---
NURSE NOTES: Pt stable,no change in pt's status,no resp distress presented during the shift.
--- NOTE | 2018-12-25 19:16 | NUR ---
RESPIRATORY NOTE: Received pt on AC 16, 600VT, 35%, PEEP +5. Pt is trach-dependent w/ a cuffed, Portex 8 tube. Pt asleep/disoriented. B/S nora. rhonchi, sxn small to moderate amounts of thin, frothy, clear-white secretions. Vent plugged into red outlet, ambubag & spare trach kit at bedside. Pt in no apparent distress at this time. Will continue plan of care.
--- NOTE | 2018-12-25 19:20 | NUR ---
HAND-OFF: Report given to Simeon Viveros RN.
--- NOTE | 2018-12-25 19:25 | NUR ---
NURSE NOTES: Report received from ODILIA Dennis. Observed pt sleeping on the bed, arousable by voice and shaking. Obtunded, no signs of pain noted. SR with playground monitor. Trach to vent, portex 8, AC 16, TV 600, FIO2 35%, PEEP 5. Gtube site intact and patent, running Osmolite 1.5 at 60cc/hr. Condom catheter intact and patent. PICC on PRASHANTH, intact and patent. Bed in the lowest position. Side rails up x3. Will continue to monitor.
--- NOTE | 2018-12-25 19:40 | NUR ---
NURSE NOTES: Noted redness over right trochanter area, size of 0.4cm x 1.3cm. Covered with optifoam and picture will be uploaded.
[2018-12-25 20:00] VITALS: BP 132/80
[2018-12-25] MEDS: Dyna-Hex 2% Top Sol 2oz TOPIC SCH (20:40)
[2018-12-25 21:52] LABS: APPEARANCE,URINE CLEAR; BILIRUBIN, URINE NEGATIVE (NEGATIVE); COLOR,URINE PALE YELLOW; GLUCOSE, URINE (UA) NEGATIVE (NEGATIVE); KETONES,URINE NEGATIVE (NEGATIVE); LEUKOCYTE ESTERASE ,URINE 3+ (NEGATIVE); NITRITE,URINE NEGATIVE (NEGATIVE); PH,URINE 7 (4.5-8.0); PROTEIN,URINE 2+ (NEGATIVE); UROBILINOGEN,URINE NORMAL MG/DL (0.0-1.0)
--- NOTE | 2018-12-25 23:21 | General Progress Note ---
Assessment/Plan Problem List: (1) Severe protein-calorie malnutrition ICD Codes: E43 - Unspecified severe protein-calorie malnutrition SNOMED: 270085855 (2) Feeding by G-tube ICD Codes: Z93.1 - Gastrostomy status SNOMED: 705569981, 984368440 (3) Anemia ICD Codes: D64.9 - Anemia, unspecified SNOMED: 038017790 (4) Chronic respiratory failure ICD Codes: J96.10 - Chronic respiratory failure, unspecified whether with hypoxia or hypercapnia SNOMED: 40347570 (5) Esophagitis ICD Codes: K20.9 - Esophagitis SNOMED: 33064953 (6) Hypothyroidism ICD Codes: E03.9 - Hypothyroidism, unspecified SNOMED: 30824514 (7) Aspiration pneumonia ICD Codes: J69.0 - Pneumonitis due to inhalation of food and vomit SNOMED: 495281034 (8) Leukocytosis ICD Codes: D72.829 - Elevated white blood cell count, unspecified SNOMED: 126042859, 221468759 Qualifiers: Qualified Codes: D72.828 - Other elevated white blood cell count (9) Contracture of multiple joints ICD Codes: M24.50 - Contracture, unspecified joint SNOMED: 72786131, 139870122 Status: progressing Assessment: anemia malnutrition moniter for bleeding gerd pna improved vitals stable Diagnoses Results of Pharmacotherapy: afebrile gerd pna improving leukocytosis improving Subjective ROS Limited/Unobtainable: Yes Allergies: Coded Allergies: NO KNOWN DRUG ALLERGIES (Verified Allergy, Unknown, 09/11/16) Objective Last 24 Hour Vital Signs Date Time Temp Pulse Resp B/P (MAP) Pulse Ox O2 Delivery O2 Flow Rate FiO2 12/25/18 23:01 92 18 35 12/25/18 20:51 91 18 35 12/25/18 20:00 91 12/25/18 20:00 35 12/25/18 20:00 Mechanical Ventilator 12/25/18 20:00 98.2 96 18 132/80 (97) 100 12/25/18 19:14 102 16 35 12/25/18 17:16 97 20 35 12/25/18 16:06 Mechanical Ventilator 12/25/18 16:00 99.6 95 18 125/93 (104) 99 12/25/18 16:00 96 12/25/18 15:57 35 12/25/18 15:40 97 18 35 12/25/18 12:44 95 17 35 12/25/18 12:00 99.5 94 16 140/68 (92) 100 12/25/18 12:00 35 12/25/18 12:00 Mechanical Ventilator 12/25/18 12:00 90 12/25/18 10:55 95 19 35 12/25/18 08:34 87 19 35 12/25/18 08:00 88 12/25/18 08:00 Mechanical Ventilator 12/25/18 08:00 35 12/25/18 08:00 98.7 100 16 125/83 (97) 100 12/25/18 06:57 85 16 35 12/25/18 05:21 92 22 35 12/25/18 04:00 91 12/25/18 04:00 Mechanical Ventilator 12/25/18 04:00 35 12/25/18 04:00 99.0 94 19 137/79 (98) 100 12/25/18 03:17 90 20 35 12/25/18 01:29 89 21 35 12/25/18 00:00 81 12/25/18 00:00 35 12/25/18 00:00 98.8 87 20 133/76 (95) 100 12/25/18 00:00 Mechanical Ventilator 12/24/18 23:30 87 20 35 Intake and Output 12/24/18 12/25/18 18:59 06:59 Intake Total 360 ml 1030 ml Output Total 1000 ml 100 ml Balance -640 ml 930 ml Intake Free Water 90 ml IV Total 220 ml Tube Feeding 360 ml 720 ml Output Urine Total 1000 ml 100 ml # Voids 1 # Bowel Movements 6 2 Laboratory Tests 12/25/18 04:00: White Blood Count 12.7H, Red Blood Count 3.60L, Hemoglobin 10.0L, Hematocrit 30.1L, Mean Corpuscular Volume 83, Mean Corpuscular Hemoglobin 27.7, Mean Corpuscular Hemoglobin Concent 33.2, Red Cell Distribution Width 14.7, Platelet Count 375, Mean Platelet Volume 7.0, Neutrophils (%) (Auto) 71.1, Lymphocytes (% ) (Auto) 13.4L, Monocytes (%) (Auto) 12.4H, Eosinophils (%) (Auto) 2.1, Basophils (%) (Auto) 0.9, Erythrocyte Sedimentation Rate 110H, Sodium Level 131L , Potassium Level 3.4L, Chloride Level 97L, Carbon Dioxide Level 25, Anion Gap 9 , Blood Urea Nitrogen 36H, Creatinine 1.2, Estimat Glomerular Filtration Rate 59.9, Glucose Level 141H, Calcium Level 8.9, Phosphorus Level 4.6, Magnesium Level 1.9, Total Bilirubin 0.3, Aspartate Amino Transf (AST/SGOT) 16, Alanine Aminotransferase (ALT/SGPT) 16, Alkaline Phosphatase 102, C-Reactive Protein, Quantitative 27.0H, Total Protein 7.5, Albumin 2.2L, Globulin 5.3, Albumin/ Globulin Ratio 0.4L 12/25/18 21:00: Urine Color Pale yellow, Urine Appearance Clear, Urine pH 7, Urine Specific [place] 1.010, Urine Protein 2+H, Urine Glucose (UA) Negative, Urine Ketones Negative, Urine Blood 3+H, Urine Nitrite Negative, Urine Bilirubin Negative, Urine Urobilinogen Normal, Urine Leukocyte Esterase 3+H, Urine RBC 5-10H, Urine WBC 15-20H, Urine Squamous Epithelial Cells None, Urine Bacteria ModerateH Height (Feet): 5 Height (Inches): 10.00 Weight (Pounds): 155 Neck: supple Cardiovascular: normal rate Respiratory/Chest: lungs clear Sven Johns MD Dec 25, 2018 23:21
--- NOTE | 2018-12-25 23:59 | NUR ---
NURSE NOTES: Pt sleeping on the bed, appears calm and comfortable, no signs of pain noted. Oral care done. Reposition done. Will continue to monitor.
[2018-12-26] VITALS: BP 144/87
--- NOTE | 2018-12-26 00:31 | Consultation ---
DATE OF CONSULTATION: 12/25/2018 UROLOGY CONSULTATION CONSULTING PHYSICIAN: Kamlesh Vazquez M.D. ATTENDING/REFERRING PHYSICIAN: Huma Keating M.D. CHIEF COMPLAINT/HISTORY OF PRESENT ILLNESS: I was asked by Dr. Keating to evaluate this unfortunate debilitated 68-year-old gentleman regarding a history of a left ureteral stone and possible left renal abscess noted incidentally on CT scan. Briefly, the patient has a history of multiple medical issues including chronic respiratory failure for which he is ventilator dependent, Alzheimer's dementia, contractures, and renal failure. The patient is maintained in a correction facility but presented with shortness of breath, lethargy, and evidence of pneumonia. He was admitted here for further management of the same. During his hospitalization, a CT scan was done revealing a large left ureteral stone with chronic hydronephrosis and parenchymal loss on that side secondary to same. There was also evidence of possible renal abscess adjacent to the same. Given the above, I was asked to evaluate the patient. The patient is nonverbal and cannot provide any information. Most of the information is gathered from the chart. PAST MEDICAL HISTORY: 1. Chronic respiratory failure. 2. Malnutrition. 3. Alzheimer's dementia/encephalopathy. 4. Renal failure. 5. Dysphagia. 6. Hypertension. 7. Coronary artery disease. 8. CHF. 9. Diabetes. 10. Anemia. 11. Stroke. 12. GI bleed. 13. Schizoaffective disorder. 14. GERD. 15. Hypothyroidism. 16. Constipation. 17. Urinary tract infection. PAST SURGICAL HISTORY: 1. G-tube placement. 2. Tracheostomy. 3. EGD multiple times. MEDICATIONS: Please see the chart for current medications and administration details. Briefly, the patient is on tigecycline and vancomycin for antibiotic coverage. ALLERGIES: No known drug allergies. SOCIAL HISTORY: Unremarkable for tobacco, alcohol or drug use. The patient lives in a correction facility. FAMILY HISTORY: Unavailable. REVIEW OF SYSTEMS: A 14-system review of systems essentially could not be done as the patient cannot cooperate with questioning. PHYSICAL EXAMINATION: GENERAL: The patient is an elderly debilitated gentleman, awake but not alert. Uncertain of orientation. In no obvious distress. HEENT: NC/AT. Oropharynx clear. NECK: Supple. Tracheostomy site clean, dry and intact. CHEST: Within normal limits. ABDOMEN: Soft, nontender, and nondistended. G-tube site clean, dry and intact. EXTREMITIES: Warm and well perfused. No cyanosis, clubbing, or edema. There is marked contracture of the lower extremities resulting in the patient being essentially in position. BACK: No apparent CVA tenderness to percussion. NEUROLOGIC: Notable for encephalopathy and dementia. The patient cannot cooperate with the remainder of the exam. GENITOURINARY: Exam reveals a normal male phallus. There is a condom catheter in place with clear yellow urine output. There are bilateral descended testes and cord structures with no masses or tenderness to palpation. LABORATORY DATA: Sodium 131, potassium 3.4, chloride 97, bicarbonate 25, BUN 36, and creatinine 1.2. Glucose 141. Calcium 8.9. LFTs within normal limits. Alkaline phosphatase 102. White blood cell count 12.7, hematocrit 30.1, and platelets 375. Urinalysis - specific gravity 1.010, pH 7.0. Dip test is notable for 2+ protein, 3+ occult blood, and 3+ leukocyte esterase. DIAGNOSTIC IMAGING: CT scan of the abdomen and pelvis reveals an 18 x 12 mm calculus in the proximal left ureter approximately 5 cm distal to the ureteropelvic junction. This resulted in moderate left hydronephrosis. There is thinning of the cortex suggesting that this is long-standing. There is abnormal appearance of the left proximal ureter and renal pelvic urothelium as well consistent with pyelonephritis and ureteritis. There is a multiloculated fluid collection with rim enhancement anterior to the proximal ureter adjacent to the stone. There is probably an abscess related to the stone and pyelitis, however, it appears largely anterior to there is bladder wall thickening. There are nonobstructing bilateral intrarenal calculi. Other findings as noted on the report. ASSESSMENT AND PLAN: In summary, the patient is a 68-year-old debilitated retirement patient, status post stroke with chronic respiratory failure, who is G-tube dependent and contracted. He presented here several times for admission. He has a history of coronary artery disease, hypertension, and renal insufficiency. Workup during his admission here revealed a large ureteral stone with hydronephrosis and cortical thinning secondary to same indicating that the kidney has lost function secondary to chronic obstruction. Additionally, there is a fluid collection anterior to this, worrisome for possible abscess. Physical exam reveals a contracted, debilitated, noncommunicative elderly patient, in no obvious distress. Laboratory data is notable for an elevated white blood cell count. Diagnostic imaging reveals the findings described above. This patient has a very large ureteral stone, which has resulted in loss of renal function of his left kidney given the amount of hydronephrosis and cortical function loss. Clearly, the stone has been there for a significant period of time. It would not make much sense to go try to remove the stone given the risks of surgery in this patient and his comorbidities and the lack of any likelihood of restoring significant renal function on that side. Additionally, the patient is very contracted in performing an ureteroscopy or even putting him in dorsal lithotomy to try to do so appears to be impossible. The patient carries a significant complication from any operation given his overall debilitated status and medical comorbidities. In regards to the patient's fluid collection anterior to the stone and kidney, if there was concern that this is truly an abscess consideration could be made for placing a percutaneous drain by IR approach for drainage of the same. Again, there is no role for open surgery and wash out. Given the situation noted, we typically start with such measures in even a healthier patient. Antibiotics should be continued per ID recommendation. Thank you for allowing me to participate in the care of this unfortunate gentleman. Please do not hesitate to contact me with any questions that you may further have regarding his care. I will see him with you as needed. Kamlesh Vazquez M.D. DR: SULMA JOB#: [id number] CC:
[2018-12-26 04:00] VITALS: BP 106/68
[2018-12-26 05:05] LABS: BASOPHILS % (AUTO) 0.8 % (0.0-2.0); EOSINOPHILS % (AUTO) 2.5 % (0.0-3.0); HEMATOCRIT 30.6 % (42.0-52.0); HEMOGLOBIN 10.1 G/DL (14.2-18.0); MEAN CORPUSCULAR VOLUME 84 FL (80-99); MONOCYTES % (AUTO) 10.7 % (1.0-10.0); NEUTROPHILS % (AUTO) 70.9 % (45.0-75.0); PLATELET COUNT 363 K/UL (150-450); RED BLOOD COUNT 3.64 M/UL (4.70-6.10); RED CELL DISTRIBUTION WIDTH 14.5 % (11.6-14.8); WHITE BLOOD COUNT 12.1 K/UL (4.8-10.8)
[2018-12-26 05:21] LABS: ALANINE AMINOTRANSFERASE 14 U/L (12-78); ALBUMIN 2.2 G/DL (3.4-5.0); ALBUMIN/GLOBULIN RATIO 0.4 (1.0-2.7); ALKALINE PHOSPHATASE 112 U/L (46-116); ANION GAP 9 mmol/L (5-15); ASPARTATE AMINO TRANSFERASE 14 U/L (15-37); BILIRUBIN,TOTAL 0.3 MG/DL (0.2-1.0); BLOOD UREA NITROGEN 34 mg/dL (7-18); CALCIUM 8.5 MG/DL (8.5-10.1); CARBON DIOXIDE 25 MMOL/L (21-32); CHLORIDE 100 MMOL/L (98-107); CREATININE 1.1 MG/DL (0.55-1.30); PHOSPHORUS 3.2 MG/DL (2.5-4.9); SODIUM 134 MMOL/L (136-145)
[2018-12-26] MEDS: Sucralfate 1gm tab GT SCH ×3 (06:52→17:03)
--- NOTE | 2018-12-26 07:20 | NUR ---
HAND-OFF: Report given to ODILIA Guerrero. No acute distress noted at this time.
--- NOTE | 2018-12-26 07:25 | NUR ---
NURSE NOTES: Received report from ODILIA Cobb. Patient is resting in bed, in stable condition. No s/sx of SOB, breathing is even and unlabored. Vent settings are as ordered. Observed no presence of pain or discomfort at this time, bed is in lowest position, brakes engaged. Call light is kept within easy reach. Will continue to monitor patient.
[2018-12-26 08:00] VITALS: BP 132/77
[2018-12-26] MEDS: Tigecycline 50 MG in NS 110 ML IVPB SCH ×2 (08:07→20:53)
[2018-12-26] MEDS: Heparin 5000 units/ml inj SUBQ SCH ×2 (08:09→20:53)
--- NOTE | 2018-12-26 10:00 | Pulmonolgy Critical Care Note ---
Critical Care - Asmt/Plan Problems: (1) Respiratory failure, [id number] (2) Aspiration pneumonia (3) Severe sepsis (4) Anemia (5) Psychosis (6) Hypothyroidism (7) Severe protein-calorie malnutrition (8) Feeding by G-tube Respiratory: monitor respiratory rate, adjust FIO2, CXR Cardiac: continue pressors, continue to monitor HR/BP Renal: F/U I&O, keep IV fluid Infectious Disease: check cultures, continue antibiotics, other Gastrointestinal: continue feedings/current rate Endocrine: monitor blood sugar, check HgA1C Neurologic: PRN Ativan, PRN Morphine Affect: PRN ativan Notes Reviewed: renal, GI, other - Urology note appreciated Discussed with: nurses, consultants Critical Care - Objective Last 24 Hour Vital Signs Date Time Temp Pulse Resp B/P (MAP) Pulse Ox O2 Delivery O2 Flow Rate FiO2 12/26/18 09:24 107 21 35 12/26/18 08:00 98.6 97 17 132/77 (95) 100 12/26/18 08:00 106 12/26/18 08:00 Mechanical Ventilator 12/26/18 08:00 35 12/26/18 07:12 106 23 35 12/26/18 05:11 104 19 35 12/26/18 04:00 Mechanical Ventilator 12/26/18 04:00 35 12/26/18 04:00 98.4 102 18 106/68 (81) 100 12/26/18 04:00 96 12/26/18 02:56 100 26 35 12/26/18 01:00 99 25 35 12/26/18 00:00 35 12/26/18 00:00 Mechanical Ventilator 12/26/18 00:00 90 12/26/18 00:00 99.5 96 18 144/87 (106) 100 12/25/18 23:01 92 18 35 12/25/18 20:51 91 18 35 12/25/18 20:00 91 12/25/18 20:00 35 12/25/18 20:00 Mechanical Ventilator 12/25/18 20:00 98.2 96 18 132/80 (97) 100 12/25/18 19:14 102 16 35 12/25/18 17:16 97 20 35 12/25/18 16:06 Mechanical Ventilator 12/25/18 16:00 99.6 95 18 125/93 (104) 99 12/25/18 16:00 96 12/25/18 15:57 35 12/25/18 15:40 97 18 35 12/25/18 12:44 95 17 35 12/25/18 12:00 99.5 94 16 140/68 (92) 100 12/25/18 12:00 35 12/25/18 12:00 Mechanical Ventilator 12/25/18 12:00 90 12/25/18 10:55 95 19 35 Status: awake Condition: critical HEENT: atraumatic Lungs: clear Heart: HR/BP stable Abdomen: soft Extremities: no C/C/E Critical Care - Subjective ROS Limited/Unobtainable: Yes Condition: critical EKG Rhythm: Sinus Rhythm FI02: 35 Vent Support Breath Rate: 16 Vent Support Mode: AC Vent Tidal Volume: 600 Sputum Amount: Small PEEP: 5.0 PIP: 20 Tube Feeding Amount: 0 I&O: Intake and Output 12/25/18 12/26/18 19:00 07:00 Intake Total 1100 ml 790 ml Output Total 850 ml 1200 ml Balance 250 ml -410 ml Intake Free Water 200 ml 140 ml IV Total 110 ml Tube Feeding 720 ml 540 ml Other 180 ml Output Urine Total 850 ml 1200 ml # Bowel Movements 1 3 CXR: no new changes Labs: Laboratory Tests Test 12/25/18 21:00 12/26/18 04:00 Urine Color Pale yellow Urine Appearance Clear Urine pH 7 (4.5-8.0) Urine Specific [place] 1.010 (1.005-1.035) Urine Protein 2+ (NEGATIVE) H Urine Glucose (UA) Negative (NEGATIVE) Urine Ketones Negative (NEGATIVE) Urine Blood 3+ (NEGATIVE) H Urine Nitrite Negative (NEGATIVE) Urine Bilirubin Negative (NEGATIVE) Urine Urobilinogen Normal MG/DL (0.0-1.0) Urine Leukocyte Esterase 3+ (NEGATIVE) H Urine RBC 5-10 /HPF (0 - 0) H Urine WBC 15-20 /HPF (0 - 0) H Urine Squamous Epithelial Cells None /LPF (NONE/OCC) Urine Bacteria Moderate /HPF (NONE) H White Blood Count 12.1 K/UL (4.8-10.8) H Red Blood Count 3.64 M/UL (4.70-6.10) L Hemoglobin 10.1 G/DL (14.2-18.0) L Hematocrit 30.6 % (42.0-52.0) L Mean Corpuscular Volume 84 FL (80-99) Mean Corpuscular Hemoglobin 27.7 PG (27.0-31.0) Mean Corpuscular Hemoglobin Concent 33.0 G/DL (32.0-36.0) Red Cell Distribution Width 14.5 % (11.6-14.8) Platelet Count 363 K/UL (150-450) Mean Platelet Volume 7.2 FL (6.5-10.1) Neutrophils (%) (Auto) 70.9 % (45.0-75.0) Lymphocytes (%) (Auto) 15.0 % (20.0-45.0) L Monocytes (%) (Auto) 10.7 % (1.0-10.0) H Eosinophils (%) (Auto) 2.5 % (0.0-3.0) Basophils (%) (Auto) 0.8 % (0.0-2.0) Sodium Level 134 MMOL/L (136-145) L Potassium Level 4.0 MMOL/L (3.5-5.1) Chloride Level 100 MMOL/L (98-107) Carbon Dioxide Level 25 MMOL/L (21-32) Anion Gap 9 mmol/L (5-15) Blood Urea Nitrogen 34 mg/dL (7-18) H Creatinine 1.1 MG/DL (0.55-1.30) Estimat Glomerular Filtration Rate > 60 mL/min (>60) Glucose Level 142 MG/DL (74-106) H Calcium Level 8.5 MG/DL (8.5-10.1) Phosphorus Level 3.2 MG/DL (2.5-4.9) Magnesium Level 1.8 MG/DL (1.8-2.4) Total Bilirubin 0.3 MG/DL (0.2-1.0) Aspartate Amino Transf (AST/SGOT) 14 U/L (15-37) L Alanine Aminotransferase (ALT/SGPT) 14 U/L (12-78) Alkaline Phosphatase 112 U/L (46-116) Total Protein 7.2 G/DL (6.4-8.2) Albumin 2.2 G/DL (3.4-5.0) L Globulin 5.0 g/dL Albumin/Globulin Ratio 0.4 (1.0-2.7) L Huma Keating MD Dec 26, 2018 10:00
--- NOTE | 2018-12-26 10:00 | NUR ---
NURSE NOTES: Dr. Keating ordered "Ins cath for perc drainage." Dr. Keating signed consent for patient as patient is unable to. Per Dr. Keating, infectious disease physician will be second signer. Noted. Contacted and informed Dr. Lai of situation. Dr. Lai acknowledged and informed this nurse they will be in hospital later today to sign consent. Made charge nurse aware. Consent is in chart. Will continue to monitor patient.
[2018-12-26] MEDS: Vancomycin 500mg/D5W 110ml IVPB SCH ×4 (10:05→22:43)
[2018-12-26 11:59] LABS: INR 1.1 (0.9-1.1)
[2018-12-26 12:00] VITALS: BP 122/78
--- NOTE | 2018-12-26 12:22 | NUR ---
[employer] SI:RESPIRATORY FAILURE ACUTE ON CHRONIC . ASPIRATION PNA VS: BP 106/68, P 107, T 98.4, RR 23, SpO2 100 on VENT AC 16, TV 600, PEEP 5.0, FiO2 35 WBC 12.1. RBC 3.64, Hgb 10.1, Hct 30.6, Na 134, BUN 34 IS:TIGECYCLINE 50mg 110ml IVPB VANCOMYCIN 110ml IVPB PREVACID 30mg SUCRALFATE 1gm SYNTHROID 75mcg HEPARIN SUBQ SDU STATUS
--- NOTE | 2018-12-26 13:11 | NUR ---
*-*INSURANCE *-* UPDATED CLINICALS & REVIEW HAVE BEEN FAXED TO: [facility]: JOSE Soares P- [phone] F- [phone]...REVIEW/CLINICAL
[2018-12-26 16:00] VITALS: BP 136/73
--- NOTE | 2018-12-26 17:28 | Infectious Diseases Prog Note ---
Assessment/Plan Assessment/Plan Assessment: Leukocytosis - improving - PEG site with purulent discharge -Infected obstructive ureteral stone w/ adjacent abscess and moderate L hydronephrosis -12/25 u/a wbc 15-20, nit neg, leuk +3; ucx p -12/24 CT abd/p: : Positive for 18 x 12 mm calculus within the proximal left ureter, approximately 5 cm distal to ureteropelvic junction. This results in moderate left hydronephrosis. Thinning of the cortex suggests that this is likely long- standing Abnormal appearance to the left proximal ureteral and renal pelvic urothelium as well as of the renal parenchyma, consistent with nephritis, pyelitis, and ureter right is. Multiloculated fluid collection with rim enhancement anterior to the proximal ureter adjacent to the stone. This is probably an abscess related to the stone and a pyelitis. Unusually, however, it appears largely anterior to Gerota's fascia rather than within it. Bladder wall thickening, suggests cystitis or chronic bladder outlet obstruction. Given the asymmetry of the bladder wall thickening, the possibility of tumor should also be considered. Nonobstructive bilateral intrarenal calculi, new/increased since prior exam of 01/19/2016. Rectal distention with stool. Mild rectal wall thickening. Findings could indicate fecal impaction with associated stercoral proctitis. However, findings are somewhat similar to the prior 2015 exam and could just be baseline for this patient. Gastrostomy in good position. No apparent complication associated with such. Marked laxity of the central lower abdominal wall musculature resulting in anterior protuberance of the abdomen and contents, without definite james herniation or obstruction. Probable granulomatous calcification within the mediastinum 12/18/18 Cx growing KPC K pna (S Tigecycline), ESBL E. coli (S Tigecycline ) and CoNS -CXR: No acute process. Right basilar atelectasis -Sp cx 12/09/18 E.coli (ESBL), P.a. 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 diff Dysphagia s/p G-tube Anemia. CVA/TIA w/ hemiplegia functional quadriplegia chronic encephalopathy CAD CHF Dm2 GIB s/p multiple EGDs in the past hx of severe esophagitis schizoaffective disease [facility] resident multiple admissions VRE colonization Plan: - Cont Vancomcyin and tigecycline #4 for PEG site infection - f/u cx -For IR drainage of perinephric abscess -send bacterial cx -URo f/u: not candidate for surgical intervention given chronicity, comorbidities and loss of function of L kidney - 12/23/18 SP Zosyn #11, inhaled colistin #8 for MDR P.a.for sputum organism and Fluconazole #7 for Yeast it the urine - 12/12 S/P Vancomycin and Cefepime #5 -12/08 SP Levaquin x1 -11/06 SP Amikacin #6 -11/01 SP Meropenem #4 -10/29 SP IV Vanco #2, Cefepime #2 and Tigecycline #1 -10/28 SP LEavquin x1 -10/09 SP Ertapenem #5 - 10/04 SP Meropenem #2 -10/03/18 SP IV Vancomycin #2 and Cefepime #2 -08/09/18 SP Bactrim #7 -08/03 SP Vancomycin and Cefepime #3 -08/01/18 SP Ceftriaxone x1 -Monitor CBC/CMP, temperatures -Peg/trach care -aspiration precautions Will continue to follow along with you. Discussed with RN and Dr Keating Patient cannot sign consent. The CT guided drainage for abscess is medically necessary Subjective Allergies: Coded Allergies: NO KNOWN DRUG ALLERGIES (Verified Allergy, Unknown, 09/11/16) Subjective afebrile leukocytosis improvED for IR drainage of perinephric abscess Objective Vital Signs Last 24 Hour Vital Signs Date Time Temp Pulse Resp B/P (MAP) Pulse Ox O2 Delivery O2 Flow Rate FiO2 12/26/18 16:00 99.4 96 18 136/73 (94) 100 12/26/18 16:00 95 12/26/18 16:00 Mechanical Ventilator 12/26/18 16:00 35 12/26/18 15:11 99 19 35 12/26/18 13:20 98 18 35 12/26/18 12:00 99.6 97 18 122/78 (93) 98 12/26/18 12:00 Mechanical Ventilator 12/26/18 12:00 100 12/26/18 12:00 35 12/26/18 11:21 104 16 35 12/26/18 09:24 107 21 35 12/26/18 08:00 98.6 97 17 132/77 (95) 100 12/26/18 08:00 106 12/26/18 08:00 Mechanical Ventilator 12/26/18 08:00 35 12/26/18 07:12 106 23 35 12/26/18 05:11 104 19 35 12/26/18 04:00 Mechanical Ventilator 12/26/18 04:00 35 12/26/18 04:00 98.4 102 18 106/68 (81) 100 12/26/18 04:00 96 12/26/18 02:56 100 26 35 12/26/18 01:00 99 25 35 12/26/18 00:00 35 12/26/18 00:00 Mechanical Ventilator 12/26/18 00:00 90 12/26/18 00:00 99.5 96 18 144/87 (106) 100 12/25/18 23:01 92 18 35 12/25/18 20:51 91 18 35 12/25/18 20:00 91 12/25/18 20:00 35 12/25/18 20:00 Mechanical Ventilator 12/25/18 20:00 98.2 96 18 132/80 (97) 100 12/25/18 19:14 102 16 35 Height (Feet): 5 Height (Inches): 10.00 Weight (Pounds): 155 Objective Status: awake Condition: critical HEENT: atraumatic Neck: full ROM, trach Lungs: rales, rhonchi Heart: HR/BP stable, HR/BP unstable Abdomen: soft, non-tender Extremities: edema Decubiti: location Laboratory Tests Test 12/25/18 21:00 12/26/18 04:00 12/26/18 11:40 Urine Color Pale yellow Urine Appearance Clear Urine pH 7 (4.5-8.0) Urine Specific [place] 1.010 (1.005-1.035) Urine Protein 2+ (NEGATIVE) H Urine Glucose (UA) Negative (NEGATIVE) Urine Ketones Negative (NEGATIVE) Urine Blood 3+ (NEGATIVE) H Urine Nitrite Negative (NEGATIVE) Urine Bilirubin Negative (NEGATIVE) Urine Urobilinogen Normal MG/DL (0.0-1.0) Urine Leukocyte Esterase 3+ (NEGATIVE) H Urine RBC 5-10 /HPF (0 - 0) H Urine WBC 15-20 /HPF (0 - 0) H Urine Squamous Epithelial Cells None /LPF (NONE/OCC) Urine Bacteria Moderate /HPF (NONE) H White Blood Count 12.1 K/UL (4.8-10.8) H Red Blood Count 3.64 M/UL (4.70-6.10) L Hemoglobin 10.1 G/DL (14.2-18.0) L Hematocrit 30.6 % (42.0-52.0) L Mean Corpuscular Volume 84 FL (80-99) Mean Corpuscular Hemoglobin 27.7 PG (27.0-31.0) Mean Corpuscular Hemoglobin Concent 33.0 G/DL (32.0-36.0) Red Cell Distribution Width 14.5 % (11.6-14.8) Platelet Count 363 K/UL (150-450) Mean Platelet Volume 7.2 FL (6.5-10.1) Neutrophils (%) (Auto) 70.9 % (45.0-75.0) Lymphocytes (%) (Auto) 15.0 % (20.0-45.0) L Monocytes (%) (Auto) 10.7 % (1.0-10.0) H Eosinophils (%) (Auto) 2.5 % (0.0-3.0) Basophils (%) (Auto) 0.8 % (0.0-2.0) Sodium Level 134 MMOL/L (136-145) L Potassium Level 4.0 MMOL/L (3.5-5.1) Chloride Level 100 MMOL/L (98-107) Carbon Dioxide Level 25 MMOL/L (21-32) Anion Gap 9 mmol/L (5-15) Blood Urea Nitrogen 34 mg/dL (7-18) H Creatinine 1.1 MG/DL (0.55-1.30) Estimat Glomerular Filtration Rate > 60 mL/min (>60) Glucose Level 142 MG/DL (74-106) H Calcium Level 8.5 MG/DL (8.5-10.1) Phosphorus Level 3.2 MG/DL (2.5-4.9) Magnesium Level 1.8 MG/DL (1.8-2.4) Total Bilirubin 0.3 MG/DL (0.2-1.0) Aspartate Amino Transf (AST/SGOT) 14 U/L (15-37) L Alanine Aminotransferase (ALT/SGPT) 14 U/L (12-78) Alkaline Phosphatase 112 U/L (46-116) Total Protein 7.2 G/DL (6.4-8.2) Albumin 2.2 G/DL (3.4-5.0) L Globulin 5.0 g/dL Albumin/Globulin Ratio 0.4 (1.0-2.7) L Prothrombin Time 11.5 SEC (9.30-11.50) Prothromb Time International Ratio 1.1 (0.9-1.1) Activated Partial Thromboplast Time 38 SEC (23-33) H Current Medications Medications (Trade) Dose Ordered Sig/Wanda Route PRN Reason Start Time Stop Time Status Last Admin Dose Admin Acetaminophen (Tylenol) 650 mg Q4H PRN GT Mild Pain/Temp > 100.5 12/15/18 10:45 01/14/19 10:44 12/16/18 18:24 Chlorhexidine Gluconate (Jasmin-Hex 2%) 1 applic DAILY@1999 TOPIC 12/11/18 20:00 01/10/19 19:59 12/25/18 20:40 Dextrose (Dextrose 50%) 25 ml Q30M PRN IV Hypoglycemia 12/08/18 16:15 01/07/19 16:14 Dextrose (Dextrose 50%) 50 ml Q30M PRN IV hypoglycemia 12/08/18 16:15 01/07/19 16:14 Heparin Sodium (Porcine) (Heparin 5000 units/ml) 5,000 units EVERY 12 HOURS SUBQ 12/08/18 21:00 01/07/19 20:59 12/26/18 08:09 Lansoprazole (Prevacid) 30 mg DAILY GT 12/18/18 09:00 01/17/19 08:59 12/26/18 08:08 Levothyroxine Sodium (Synthroid) 75 mcg Q24H GT 12/09/18 06:30 01/08/19 06:29 12/26/18 06:52 Ondansetron HCl (Zofran) 4 mg Q6H PRN IVP Nausea & Vomiting 12/08/18 16:00 01/07/19 15:59 Polyethylene Glycol (Miralax) 17 gm DAILYPRN PRN GT Constipation 12/15/18 10:45 01/07/19 15:59 Sucralfate (Carafate) 1 gm EVERY 6 HOURS GT 12/15/18 18:00 01/07/19 17:59 12/26/18 17:03 Tigecycline 50 mg/ Sodium Chloride 110 ml @ 220 mls/hr EVERY 12 HOURS IVPB 12/23/18 21:00 12/30/18 20:59 12/26/18 08:07 Vancomycin HCl (Vanco rx to dose) 1 ea DAILY PRN MISC PER PHARMACY 12/23/18 09:30 01/22/19 09:29 Vancomycin HCl 500 mg/Dextrose 110 ml @ 110 mls/hr Q12HR@1100,2300 IVPB 12/23/18 11:00 12/28/18 10:59 12/26/18 10:05 Lisy Lai M.D. Dec 26, 2018 17:28
--- NOTE | 2018-12-26 19:22 | NUR ---
HAND-OFF: Report given to ODILIA Harvey.
--- NOTE | 2018-12-26 19:23 | NUR ---
NURSE NOTES: Endorsement receved from ODILIA Fernandez. Patient opens eyes, however does not track. Withdraws to pain. Bilateral upper and lower arms contracted. With trache to vent. Portex 8.0, AC 16, Vt 600, PEEP 5, 35% FiO2. 98% saturation. Thick secretions noted from trache, clear thin white secretions from mouth. GT patent and intact. On Osmolite 1.5 at 60ml/hr. No residual noted. Right upper arm PICC. Flushing well with backflow. Condom catheter in place. On p200 mattress and seizure precautions. Head of bed elevated. Bed alarm on. Bed locked and in lowest position.
[2018-12-26 20:00] VITALS: BP 133/71
[2018-12-26] MEDS: Dyna-Hex 2% Top Sol 2oz TOPIC SCH (20:05)
--- NOTE | 2018-12-26 21:00 | NUR ---
NURSE NOTES: Heparin SQ not given due to planned insertion of percutaneous cath for drainage of renal abscess tomorrow.
--- NOTE | 2018-12-26 21:56 | General Progress Note ---
Assessment/Plan Problem List: (1) Severe protein-calorie malnutrition ICD Codes: E43 - Unspecified severe protein-calorie malnutrition SNOMED: 833197069 (2) Feeding by G-tube ICD Codes: Z93.1 - Gastrostomy status SNOMED: 694429607, 215951237 (3) Anemia ICD Codes: D64.9 - Anemia, unspecified SNOMED: 199850503 (4) Chronic respiratory failure ICD Codes: J96.10 - Chronic respiratory failure, unspecified whether with hypoxia or hypercapnia SNOMED: 03368239 (5) Esophagitis ICD Codes: K20.9 - Esophagitis SNOMED: 79674257 (6) Hypothyroidism ICD Codes: E03.9 - Hypothyroidism, unspecified SNOMED: 60277271 (7) Aspiration pneumonia ICD Codes: J69.0 - Pneumonitis due to inhalation of food and vomit SNOMED: 061444691 (8) Leukocytosis ICD Codes: D72.829 - Elevated white blood cell count, unspecified SNOMED: 834440321, 934533424 Qualifiers: Qualified Codes: D72.828 - Other elevated white blood cell count (9) Contracture of multiple joints ICD Codes: M24.50 - Contracture, unspecified joint SNOMED: 24796738, 175548571 Status: progressing Assessment: anemia malnutrition moniter for bleeding gerd pna improved vitals stable Plan: afebrile check h/h check lytes gerd pna vitals stable Subjective ROS Limited/Unobtainable: Yes Allergies: Coded Allergies: NO KNOWN DRUG ALLERGIES (Verified Allergy, Unknown, 09/11/16) Objective Last 24 Hour Vital Signs Date Time Temp Pulse Resp B/P (MAP) Pulse Ox O2 Delivery O2 Flow Rate FiO2 12/26/18 20:37 94 19 35 12/26/18 20:00 97 12/26/18 20:00 Mechanical Ventilator 12/26/18 20:00 35 12/26/18 20:00 98.9 92 19 133/71 (91) 100 12/26/18 19:11 98 17 35 12/26/18 16:51 96 21 35 12/26/18 16:00 99.4 96 18 136/73 (94) 100 12/26/18 16:00 95 12/26/18 16:00 Mechanical Ventilator 12/26/18 16:00 35 12/26/18 15:11 99 19 35 4/18/19 13:20 98 18 35 12/26/18 12:00 99.6 97 18 122/78 (93) 98 12/26/18 12:00 Mechanical Ventilator 12/26/18 12:00 100 12/26/18 12:00 35 12/26/18 11:21 104 16 35 12/26/18 09:24 107 21 35 12/26/18 08:00 98.6 97 17 132/77 (95) 100 12/26/18 08:00 106 12/26/18 08:00 Mechanical Ventilator 12/26/18 08:00 35 12/26/18 07:12 106 23 35 12/26/18 05:11 104 19 35 12/26/18 04:00 Mechanical Ventilator 12/26/18 04:00 35 12/26/18 04:00 98.4 102 18 106/68 (81) 100 12/26/18 04:00 96 12/26/18 02:56 100 26 35 12/26/18 01:00 99 25 35 12/26/18 00:00 35 12/26/18 00:00 Mechanical Ventilator 12/26/18 00:00 90 12/26/18 00:00 99.5 96 18 144/87 (106) 100 12/25/18 23:01 92 18 35 Intake and Output 12/25/18 12/26/18 18:59 06:59 Intake Total 1040 ml 850 ml Output Total 850 ml 1200 ml Balance 190 ml -350 ml Intake Free Water 200 ml 140 ml IV Total 110 ml Tube Feeding 660 ml 600 ml Other 180 ml Output Urine Total 850 ml 1200 ml # Bowel Movements 1 3 Laboratory Tests 12/26/18 04:00: White Blood Count 12.1H, Red Blood Count 3.64L, Hemoglobin 10.1L, Hematocrit 30.6L, Mean Corpuscular Volume 84, Mean Corpuscular Hemoglobin 27.7, Mean Corpuscular Hemoglobin Concent 33.0, Red Cell Distribution Width 14.5, Platelet Count 363, Mean Platelet Volume 7.2, Neutrophils (%) (Auto) 70.9, Lymphocytes (% ) (Auto) 15.0L, Monocytes (%) (Auto) 10.7H, Eosinophils (%) (Auto) 2.5, Basophils (%) (Auto) 0.8, Sodium Level 134L, Potassium Level 4.0, Chloride Level 100, Carbon Dioxide Level 25, Anion Gap 9, Blood Urea Nitrogen 34H, Creatinine 1.1, Estimat Glomerular Filtration Rate > 60, Glucose Level 142H, Calcium Level 8.5, Phosphorus Level 3.2, Magnesium Level 1.8, Total Bilirubin 0.3, Aspartate Amino Transf (AST/SGOT) 14L, Alanine Aminotransferase (ALT/SGPT) 14, Alkaline Phosphatase 112, Total Protein 7.2, Albumin 2.2L, Globulin 5.0, Albumin/Globulin Ratio 0.4L 12/26/18 11:40: Prothrombin Time 11.5, Prothromb Time International Ratio 1.1, Activated Partial Thromboplast Time 38H Height (Feet): 5 Height (Inches): 10.00 Weight (Pounds): 155 Cardiovascular: normal rate Respiratory/Chest: lungs clear Abdomen: soft Sven Johns MD Dec 26, 2018 21:56
[2018-12-27] VITALS: BP 127/67
--- NOTE | 2018-12-27 | NUR ---
NURSE NOTES: Patient with eyes closed. No signs of pain or discomfort. Secretions suctioned. GT feeding turned off for planned insertion of percutaneous catheter to drain perirenal abscess in the morning.
[2018-12-27] MEDS: Sucralfate 1gm tab GT SCH ×5 (00:04→23:12)
[2018-12-27 04:00] VITALS: BP 132/75
--- NOTE | 2018-12-27 04:00 | NUR ---
NURSE NOTES: Patient passed soft brown stool. Oral care, bed bath, change of dressings done. Patient tolerated activity.
--- NOTE | 2018-12-27 06:55 | NUR ---
RESPIRATORY NOTE: Received pt on ordered vent settings. Patient tracheostomy tube is patent and secured. No resp distress noted. Suctioned patient prn. Vent alarms are on and audible. Vent is plugged into red outlet. Will monitor pt progress.
--- NOTE | 2018-12-27 07:20 | NUR ---
NURSE NOTES: Received report from Candice HARTLEY. Pt is asleep with head of bed at 30 degree position, opens eyes/nonverbal. On Portex 8.0, AC16, VT600, Peep 5.0, FIO2 35% with O2sat 100%. GT in place, feeding on hold (Osmolyte 1.5 at 60/hr), pending procedure today, (perinephric abscess drainage). Condom cath in place, draining clear/yellow urine. RUQ PICC in place, patent/intact. Skin has bilateral feet DTI and right trochanter redness, optifoam dressings in place. Pt is on P200 mattress. Pt is on seizure precaution, side rails padded. Bed is locked with three side rails up, brakes engaged, and call light within easy reach. Will continue to monitor pt and follow plan of care per MD orders and protocol.
--- NOTE | 2018-12-27 07:59 | Infectious Diseases Prog Note ---
Assessment/Plan Assessment/Plan Assessment: Leukocytosis - improving - PEG site with purulent discharge -Infected obstructive ureteral stone w/ adjacent abscess and moderate L hydronephrosis -12/25 u/a wbc 15-20, nit neg, leuk +3; ucx p -12/24 CT abd/p: : Positive for 18 x 12 mm calculus within the proximal left ureter, approximately 5 cm distal to ureteropelvic junction. This results in moderate left hydronephrosis. Thinning of the cortex suggests that this is likely long- standing Abnormal appearance to the left proximal ureteral and renal pelvic urothelium as well as of the renal parenchyma, consistent with nephritis, pyelitis, and ureter right is. Multiloculated fluid collection with rim enhancement anterior to the proximal ureter adjacent to the stone. This is probably an abscess related to the stone and a pyelitis. Unusually, however, it appears largely anterior to Gerota's fascia rather than within it. Bladder wall thickening, suggests cystitis or chronic bladder outlet obstruction. Given the asymmetry of the bladder wall thickening, the possibility of tumor should also be considered. Nonobstructive bilateral intrarenal calculi, new/increased since prior exam of 01/19/2016. Rectal distention with stool. Mild rectal wall thickening. Findings could indicate fecal impaction with associated stercoral proctitis. However, findings are somewhat similar to the prior 2015 exam and could just be baseline for this patient. Gastrostomy in good position. No apparent complication associated with such. Marked laxity of the central lower abdominal wall musculature resulting in anterior protuberance of the abdomen and contents, without definite james herniation or obstruction. Probable granulomatous calcification within the mediastinum 12/18/18 Cx growing KPC K pna (S Tigecycline), ESBL E. coli (S Tigecycline ) and CoNS -CXR: No acute process. Right basilar atelectasis -Sp cx 12/09/18 E.coli (ESBL), P.a. 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 diff Dysphagia s/p G-tube Anemia. CVA/TIA w/ hemiplegia functional quadriplegia chronic encephalopathy CAD CHF Dm2 GIB s/p multiple EGDs in the past hx of severe esophagitis schizoaffective disease alf resident multiple admissions VRE colonization Plan: - Cont Vancomcyin and tigecycline #5 for PEG site infection - f/u cx -For IR drainage of perinephric abscess -send bacterial cx -URo f/u: not candidate for surgical intervention given chronicity, comorbidities and loss of function of L kidney - 12/23/18 SP Zosyn #11, inhaled colistin #8 for MDR P.a.for sputum organism and Fluconazole #7 for Yeast it the urine - 12/12 S/P Vancomycin and Cefepime #5 -12/08 SP Levaquin x1 -11/06 SP Amikacin #6 -11/01 SP Meropenem #4 -10/29 SP IV Vanco #2, Cefepime #2 and Tigecycline #1 -10/28 SP LEavquin x1 -10/09 SP Ertapenem #5 - 10/04 SP Meropenem #2 -10/03/18 SP IV Vancomycin #2 and Cefepime #2 -08/09/18 SP Bactrim #7 -08/03 SP Vancomycin and Cefepime #3 -08/01/18 SP Ceftriaxone x1 -Monitor CBC/CMP, temperatures -Peg/trach care -aspiration precautions Will continue to follow along with you. Discussed with RN and Dr Keating Patient cannot sign consent. The CT guided drainage for abscess is medically necessary Subjective Allergies: Coded Allergies: NO KNOWN DRUG ALLERGIES (Verified Allergy, Unknown, 09/11/16) Subjective afebrile leukocytosis improvED for IR drainage of perinephric abscess today Objective Vital Signs Last 24 Hour Vital Signs Date Time Temp Pulse Resp B/P (MAP) Pulse Ox O2 Delivery O2 Flow Rate FiO2 12/27/18 05:00 94 20 35 12/27/18 04:00 92 12/27/18 04:00 Mechanical Ventilator 12/27/18 04:00 35 12/27/18 04:00 99.1 99 20 132/75 (94) 100 12/27/18 03:21 94 18 35 12/27/18 01:02 92 19 35 12/27/18 00:00 88 12/27/18 00:00 Mechanical Ventilator 12/27/18 00:00 98.6 91 20 127/67 (87) 100 12/27/18 00:00 35 12/26/18 23:15 89 21 35 12/26/18 20:37 94 19 35 12/26/18 20:00 97 12/26/18 20:00 Mechanical Ventilator 12/26/18 20:00 35 12/26/18 20:00 98.9 92 19 133/71 (91) 100 12/26/18 19:11 98 17 35 12/26/18 16:51 96 21 35 12/26/18 16:00 99.4 96 18 136/73 (94) 100 12/26/18 16:00 95 12/26/18 16:00 Mechanical Ventilator 12/26/18 16:00 35 12/26/18 15:11 99 19 35 12/26/18 13:20 98 18 35 12/26/18 12:00 99.6 97 18 122/78 (93) 98 12/26/18 12:00 Mechanical Ventilator 12/26/18 12:00 100 12/26/18 12:00 35 12/26/18 11:21 104 16 35 12/26/18 09:24 107 21 35 12/26/18 08:00 98.6 97 17 132/77 (95) 100 12/26/18 08:00 106 12/26/18 08:00 Mechanical Ventilator 12/26/18 08:00 35 Height (Feet): 5 Height (Inches): 10.00 Weight (Pounds): 155 Objective Status: awake Condition: critical HEENT: atraumatic Neck: full ROM, trach Lungs: rales, rhonchi Heart: HR/BP stable, HR/BP unstable Abdomen: soft, non-tender Extremities: edema Decubiti: location Laboratory Tests Test 12/26/18 11:40 Prothrombin Time 11.5 SEC (9.30-11.50) Prothromb Time International Ratio 1.1 (0.9-1.1) Activated Partial Thromboplast Time 38 SEC (23-33) H Current Medications Medications (Trade) Dose Ordered Sig/Wanda Route PRN Reason Start Time Stop Time Status Last Admin Dose Admin Acetaminophen (Tylenol) 650 mg Q4H PRN GT Mild Pain/Temp > 100.5 12/15/18 10:45 01/14/19 10:44 12/16/18 18:24 Chlorhexidine Gluconate (Jasmin-Hex 2%) 1 applic DAILY@2000 TOPIC 12/11/18 20:00 01/10/19 19:59 12/26/18 20:05 Dextrose (Dextrose 50%) 25 ml Q30M PRN IV Hypoglycemia 12/08/18 16:15 01/07/19 16:14 Dextrose (Dextrose 50%) 50 ml Q30M PRN IV hypoglycemia 12/08/18 16:15 01/07/19 16:14 Heparin Sodium (Porcine) (Heparin 5000 units/ml) 5,000 units EVERY 12 HOURS SUBQ 12/08/18 21:00 01/07/19 20:59 12/26/18 08:09 Lansoprazole (Prevacid) 30 mg DAILY GT 12/18/18 09:00 01/17/19 08:59 12/26/18 08:08 Levothyroxine Sodium (Synthroid) 75 mcg Q24H GT 12/09/18 06:30 01/08/19 06:29 12/27/18 05:45 Ondansetron HCl (Zofran) 4 mg Q6H PRN IVP Nausea & Vomiting 12/08/18 16:00 01/07/19 15:59 Polyethylene Glycol (Miralax) 17 gm DAILYPRN PRN GT Constipation 12/15/18 10:45 01/07/19 15:59 Sucralfate (Carafate) 1 gm EVERY 6 HOURS GT 12/15/18 18:00 01/07/19 17:59 12/27/18 05:45 Tigecycline 50 mg/ Sodium Chloride 110 ml @ 220 mls/hr EVERY 12 HOURS IVPB 12/23/18 21:00 12/30/18 20:59 12/26/18 20:53 Vancomycin HCl (Vanco rx to dose) 1 ea DAILY PRN MISC PER PHARMACY 12/23/18 09:30 01/22/19 09:29 Vancomycin HCl 500 mg/Dextrose 110 ml @ 110 mls/hr Q12HR@1100,2300 IVPB 12/23/18 11:00 12/28/18 10:59 12/26/18 22:43 Lisy Lai M.D. Dec 27, 2018 07:59
[2018-12-27 08:00] VITALS: BP 146/72
--- NOTE | 2018-12-27 08:21 | General Progress Note ---
Progress Note Progress Note No events. AFVSS Urine- clear/ yellow PE- abd soft, NT, ND - condom cath in place, urine clear Ext WWP WBC 12 (stable); Cr 1/ (stable) A/P- perinephric abscess/ loss of renal function 2/2 large chronic ureteral stone Cont IV abx and for IR drainage of same today Unfortunately not a surgical candidate and no sig salvageable renal function on affected side. Kamlesh Vazquez M.D. Dec 27, 2018 08:21
--- NOTE | 2018-12-27 08:50 | NUR ---
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 ASPIRATION PNA VS: BP 127/67, P 99, T 98.6, RR 20, SpO2 100 on VENT AC 16, TV 600, PEEP 5.0, FiO2 35 IS: TIGECYCLINE 50mg 110ml IVPB VANCOMYCIN 110ml IVPB PREVACID 30mg SUCRALFATE 1gm SYNTHROID 75mcg SDU STATUS
[2018-12-27] MEDS: Heparin 5000 units/ml inj SUBQ SCH ×2 (09:00→20:14)
[2018-12-27] MEDS: Tigecycline 50 MG in NS 110 ML IVPB SCH ×2 (09:38→20:15)
--- NOTE | 2018-12-27 10:00 | NUR ---
NURSE NOTES: Pt was repositioned, cleaned, oral care done. VS within normal range. Pt is resting in stable condition.
--- NOTE | 2018-12-27 10:09 | NUR ---
*-*INSURANCE *-* UPDATED CLINICALS & REVIEW HAVE BEEN FAXED TO: [facility]: JOSE Soares P- [phone] F- [phone]...REVIEW/CLINICAL
--- NOTE | 2018-12-27 10:13 | Pulmonolgy Critical Care Note ---
Critical Care - Asmt/Plan Problems: (1) Respiratory failure, [id number] (2) Aspiration pneumonia (3) Severe sepsis (4) Anemia (5) Psychosis (6) Hypothyroidism (7) Severe protein-calorie malnutrition (8) Feeding by G-tube Respiratory: monitor respiratory rate, adjust FIO2, CXR Cardiac: continue to monitor HR/BP Renal: F/U I&O, keep IV fluid Infectious Disease: check cultures Gastrointestinal: continue feedings/current rate, adjust feedings, start feedings Endocrine: monitor blood sugar Hematologic: monitor H/H, transfuse if hgb<8.5 Neurologic: PRN Ativan, PRN Morphine, keep patient comfortable Affect: PRN ativan Disposition: keep in ICU Notes Reviewed: division sales manager, 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 with: nurses, consultants, disease case managerassistant store manager operations - Objective Last 24 Hour Vital Signs Date Time Temp Pulse Resp B/P (MAP) Pulse Ox O2 Delivery O2 Flow Rate FiO2 12/27/18 08:00 98.1 91 20 146/72 (96) 100 12/27/18 07:40 91 12/27/18 06:55 91 20 35 12/27/18 05:00 94 20 35 12/27/18 04:00 92 12/27/18 04:00 Mechanical Ventilator 12/27/18 04:00 35 12/27/18 04:00 99.1 99 20 132/75 (94) 100 12/27/18 03:21 94 18 35 12/27/18 01:02 92 19 35 12/27/18 00:00 88 12/27/18 00:00 Mechanical Ventilator 12/27/18 00:00 98.6 91 20 127/67 (87) 100 12/27/18 00:00 35 12/26/18 23:15 89 21 35 12/26/18 20:37 94 19 35 12/26/18 20:00 97 12/26/18 20:00 Mechanical Ventilator 12/26/18 20:00 35 12/26/18 20:00 98.9 92 19 133/71 (91) 100 12/26/18 19:11 98 17 35 12/26/18 16:51 96 21 35 12/26/18 16:00 99.4 96 18 136/73 (94) 100 12/26/18 16:00 95 12/26/18 16:00 Mechanical Ventilator 12/26/18 16:00 35 12/26/18 15:11 99 19 35 12/26/18 13:20 98 18 35 12/26/18 12:00 99.6 97 18 122/78 (93) 98 12/26/18 12:00 Mechanical Ventilator 12/26/18 12:00 100 12/26/18 12:00 35 12/26/18 11:21 104 16 35 Status: awake Condition: critical HEENT: atraumatic Neck: full ROM Lungs: chest wall tender Heart: HR/BP stable Abdomen: soft, non-tender, feeding tube Extremities: no C/C/E, edema Decubiti: location Micro: Microbiology Date/Time Source Procedure Growth Status 12/25/18 21:00 Urine,Clean Catch Urine Culture - Preliminary Resulted Critical Care - Subjective ROS Limited/Unobtainable: Yes Condition: critical EKG Rhythm: Sinus Rhythm FI02: 35 Vent Support Breath Rate: 16 Vent Support Mode: AC Vent Tidal Volume: 600 Sputum Amount: Moderate PEEP: 5.0 PIP: 22 Tube Feeding Amount: 0 I&O: Intake and Output 12/26/18 12/27/18 19:00 07:00 Intake Total 1080 ml 460 ml Output Total 500 ml 1000 ml Balance 580 ml -540 ml Intake Free Water 200 ml 100 ml IV Total 220 ml Tube Feeding 660 ml 300 ml Other 60 ml Output Urine Total 500 ml 1000 ml # Voids 2 # Bowel Movements 6 1 CXR: no change Labs: Laboratory Tests Test 12/26/18 11:40 Prothrombin Time 11.5 SEC (9.30-11.50) Prothromb Time International Ratio 1.1 (0.9-1.1) Activated Partial Thromboplast Time 38 SEC (23-33) H Huma Keating MD Dec 27, 2018 10:13
--- NOTE | 2018-12-27 10:15 | General Progress Note ---
Progress Note Progress Note Mr Huffman has a renal abscess which needs to be drained. He can't sign his consent and doesn't have any family member or DPOA to sign it. Huma Keating MD Dec 27, 2018 10:15
[2018-12-27 12:00] VITALS: BP 151/65
[2018-12-27] MEDS: Vancomycin 500mg/D5W 110ml IVPB SCH ×4 (12:08→23:12)
--- NOTE | 2018-12-27 12:30 | NUR ---
NURSE NOTES: Pt is resting with head of bed at 30 degree position, opens eyes/nonverbal. On Portex 8.0, AC16, VT600, Peep 5.0, FIO2 35% with O2sat 100%. GT in place, feeding on hold (Osmolyte 1.5 at 60/hr), still pending procedure today, (perinephric abscess drainage). Condom cath still draining clear/yellow urine, with hourly output of 50ml/hour. RUQ PICC in place, patent/intact, TKO. Skin has bilateral feet DTI and right trochanter redness, optifoam dressings in place. Pt is on P200 mattress. Pt is on seizure precaution, side rails padded. Bed is locked with three side rails up, brakes engaged, and call light within easy reach. Will continue to monitor pt and follow plan of care per MD orders and protocol.
[2018-12-27 16:00] VITALS: BP 120/70
--- NOTE | 2018-12-27 16:15 | NUR ---
NURSE NOTES: Pt was scheduled for procedure to have percutaneous catheter for perinephric abscess drainage, however per radiology, pt needs to be able to lay flat on abdomen/prone position. Pt is currently on vent via trach, and unable to lay flat on prone. Dr Keating is informed. GT feeding was on hold since midnight for the procedure, however currently is back on. No residual present. Pt is resting in stable condition.
--- NOTE | 2018-12-27 17:00 | NUR ---
NURSE NOTES: Pt was cleaned, repositioned, suctioned and oral care given. VS within normal range. Pt is resting in stable condition.
[2018-12-27] MEDS ORDERED: NS 275ml ONE (17:12)
[2018-12-27] MEDS ORDERED: NS Irrig 1000ml ONE (17:12)
--- NOTE | 2018-12-27 19:11 | NUR ---
RESPIRATORY NOTE: Received pt. on 840 vent. Vent settings are: A/C rate of 16, Vt 600, FI02 35%, PEEP +5. No respiratory distress noted, pt. sP02 @ 100%. Large amount of thick secretions. Ambu bag @ BS. Vent plugged on red outlet. Will continue to monitor pt.
--- NOTE | 2018-12-27 19:16 | NUR ---
HAND-OFF: Report given to Ruth HARTLEY. Pt is resting in stable condition. Endorsed plan of care.
--- NOTE | 2018-12-27 19:17 | NUR ---
NURSE NOTES: Received patient from ODILIA Francis. Patient is awake, making no eye contact. On trach Portex 8 to vent with settings of AC: 16, TV:60, PEEP:5, FiO2:35% and saturating at 100%. On GTube feeding of Osmolite 1.5 at 60ml/hr. Condom catheter is intact and draining. Patient shows no signs of distress. Will continue plan of care.
[2018-12-27 20:00] VITALS: BP 118/77
--- NOTE | 2018-12-27 20:08 | General Progress Note ---
Assessment/Plan Problem List: (1) Severe protein-calorie malnutrition ICD Codes: E43 - Unspecified severe protein-calorie malnutrition SNOMED: 344046549 (2) Feeding by G-tube ICD Codes: Z93.1 - Gastrostomy status SNOMED: 565839020, 966799866 (3) Anemia ICD Codes: D64.9 - Anemia, unspecified SNOMED: 581267881 (4) Chronic respiratory failure ICD Codes: J96.10 - Chronic respiratory failure, unspecified whether with hypoxia or hypercapnia SNOMED: 39825115 (5) Esophagitis ICD Codes: K20.9 - Esophagitis SNOMED: 53484373 (6) Hypothyroidism ICD Codes: E03.9 - Hypothyroidism, unspecified SNOMED: 44288534 (7) Aspiration pneumonia ICD Codes: J69.0 - Pneumonitis due to inhalation of food and vomit SNOMED: 215900344 (8) Leukocytosis ICD Codes: D72.829 - Elevated white blood cell count, unspecified SNOMED: 670536668, 732913436 Qualifiers: Qualified Codes: D72.828 - Other elevated white blood cell count (9) Contracture of multiple joints ICD Codes: M24.50 - Contracture, unspecified joint SNOMED: 86318762, 290198701 Status: progressing Assessment: anemia stable h/h check lytes and cbc malnutrition moniter for bleeding pna improved Subjective ROS Limited/Unobtainable: Yes Constitutional: Reports: no symptoms Allergies: Coded Allergies: NO KNOWN DRUG ALLERGIES (Verified Allergy, Unknown, 09/11/16) Objective Last 24 Hour Vital Signs Date Time Temp Pulse Resp B/P (MAP) Pulse Ox O2 Delivery O2 Flow Rate FiO2 12/27/18 20:00 35 12/27/18 20:00 100.7 108 16 118/77 (91) 100 12/27/18 20:00 Mechanical Ventilator 12/27/18 19:10 108 24 35 12/27/18 17:09 94 20 35 12/27/18 16:00 97.9 98 17 120/70 (87) 96 12/27/18 16:00 35 12/27/18 16:00 Mechanical Ventilator 12/27/18 16:00 97 12/27/18 14:57 91 20 35 12/27/18 13:01 92 20 35 12/27/18 12:00 97.7 91 18 151/65 (93) 100 12/27/18 12:00 35 12/27/18 12:00 Mechanical Ventilator 12/27/18 11:34 88 12/27/18 11:04 90 20 35 12/27/18 08:42 92 20 35 12/27/18 08:00 98.1 91 20 146/72 (96) 100 12/27/18 08:00 Mechanical Ventilator 12/27/18 08:00 35 12/27/18 07:40 91 12/27/18 06:55 91 20 35 12/27/18 05:00 94 20 35 12/27/18 04:00 92 12/27/18 04:00 Mechanical Ventilator 12/27/18 04:00 35 12/27/18 04:00 99.1 99 20 132/75 (94) 100 12/27/18 03:21 94 18 35 12/27/18 01:02 92 19 35 12/27/18 00:00 88 12/27/18 00:00 Mechanical Ventilator 12/27/18 00:00 98.6 91 20 127/67 (87) 100 12/27/18 00:00 35 12/26/18 23:15 89 21 35 12/26/18 20:37 94 19 35 Intake and Output 12/26/18 12/27/18 19:00 07:00 Intake Total 1080 ml 460 ml Output Total 500 ml 1000 ml Balance 580 ml -540 ml Intake Free Water 200 ml 100 ml IV Total 220 ml Tube Feeding 660 ml 300 ml Other 60 ml Output Urine Total 500 ml 1000 ml # Voids 2 # Bowel Movements 6 1 Height (Feet): 5 Height (Inches): 10.00 Weight (Pounds): 155 Neck: supple Cardiovascular: normal rate Respiratory/Chest: lungs clear Abdomen: soft Sven Johns MD Dec 27, 2018 20:07
[2018-12-27] MEDS: Acetaminophen 650mg/20.3ml GT PRN (20:15)
[2018-12-27] MEDS: Dyna-Hex 2% Top Sol 2oz TOPIC SCH (20:15)
[2018-12-28] VITALS: BP 109/53
[2018-12-28 04:00] VITALS: BP 112/79
[2018-12-28] MEDS: Sucralfate 1gm tab GT SCH ×3 (05:31→18:03)
[2018-12-28 06:06] LABS: HEMATOCRIT 30.4 % (42.0-52.0); HEMOGLOBIN 10.1 G/DL (14.2-18.0); MEAN CORPUSCULAR VOLUME 84 FL (80-99); PLATELET COUNT 392 K/UL (150-450); RED BLOOD COUNT 3.61 M/UL (4.70-6.10); RED CELL DISTRIBUTION WIDTH 14.7 % (11.6-14.8); WHITE BLOOD COUNT 18.8 K/UL (4.8-10.8)
[2018-12-28 06:33] LABS: ALANINE AMINOTRANSFERASE 14 U/L (12-78); ALBUMIN 2.2 G/DL (3.4-5.0); ALBUMIN/GLOBULIN RATIO 0.4 (1.0-2.7); ALKALINE PHOSPHATASE 133 U/L (46-116); ANION GAP 10 mmol/L (5-15); ASPARTATE AMINO TRANSFERASE 13 U/L (15-37); BILIRUBIN,TOTAL 0.4 MG/DL (0.2-1.0); BLOOD UREA NITROGEN 38 mg/dL (7-18); CALCIUM 8.7 MG/DL (8.5-10.1); CARBON DIOXIDE 23 MMOL/L (21-32); CHLORIDE 99 MMOL/L (98-107); CREATININE 1.2 MG/DL (0.55-1.30); PHOSPHORUS 4.2 MG/DL (2.5-4.9); POTASSIUM 4.3 MMOL/L (3.5-5.1); SODIUM 132 MMOL/L (136-145)
--- NOTE | 2018-12-28 07:20 | NUR ---
HAND-OFF: Report given to ODILIA CARDENAS.
--- NOTE | 2018-12-28 07:21 | NUR ---
NURSE NOTES: RECEIVED PATIENT FROM Jarek BUTTERFIELD RN. PATIENT IS LYING IN BED, RESTING, NONVERBAL. HOOKED TO DIRECTOR OF RETAIL MERCHANDISING. TRACH TO VENT. PORTEX 8, VENT SETTINGS AC 16, VT 600, FIO2 35%, PEEP 5. NO SIGNS OF DISTRESS. GT IN PLACE, GTF OSMOLITE 1.5 AT 60ML/HR. ON CONDOM CATH. NOTED SKIN ALTERATION. NOTED R UA PICC, TKO. CALL LIGHT WITHIN REACH. BED AT LOWEST POSITION. PADDED SIDE RAILS. SIDE RAILS UP. WILL CONTINUE TO MONITOR.
--- NOTE | 2018-12-28 07:21 | Infectious Diseases Prog Note ---
Assessment/Plan Assessment/Plan Abx: IV Vancomycin 12/08- Cefepime 12/08- Levaquinx 1 12/08 Assessment: Leukocytosis - Stable - PEG site with puruelnt discharge 12/18/18 Cx growing KPC, ESBL E. coli and CoNS -CXR: No acute process. Right basilar atelectasis -Sp cx 12/09/18 E.coli (ESBL), P.a. 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 diff Dysphagia s/p G-tube Anemia. CVA/TIA w/ hemiplegia functional quadriplegia chronic encephalopathy CAD CHF Dm2 GIB s/p multiple EGDs in the past hx of severe esophagitis schizoaffective disease snf resident multiple admissions VRE colonization Plan: - Continue Vancomcyin #2 and tigecyclin #2 for PEG site infection - 12/23/18 SP Zosyn #11, inhaled colistin #8 for MDR P.a.for sputum organism and Fluconazole #7 for Yeast it the urine - 12/12 S/P Vancomycin and Cefepime #5 -12/08 SP Levaquin x1 -11/06 SP Amikacin #6 -11/01 SP Meropenem #4 -10/29 SP IV Vanco #2, Cefepime #2 and Tigecycline #1 -10/28 SP LEavquin x1 -10/09 SP Ertapenem #5 - 10/04 SP Meropenem #2 -10/03/18 SP IV Vancomycin #2 and Cefepime #2 -08/09/18 SP Bactrim #7 -08/03 SP Vancomycin and Cefepime #3 -08/01/18 SP Ceftriaxone x1 -Monitor CBC/CMP, temperatures -Peg/trach care -aspiration precautions Will continue to follow along with you. Subjective Allergies: Coded Allergies: NO KNOWN DRUG ALLERGIES (Verified Allergy, Unknown, 09/11/16) Subjective Afebrile WBCs increased today Satting well on vent Objective Vital Signs Last 24 Hour Vital Signs Date Time Temp Pulse Resp B/P (MAP) Pulse Ox O2 Delivery O2 Flow Rate FiO2 12/28/18 05:02 85 16 35 12/28/18 04:00 Mechanical Ventilator 12/28/18 04:00 99.0 87 18 112/79 (90) 100 12/28/18 04:00 35 12/28/18 03:38 88 12/28/18 02:46 96 17 35 12/28/18 01:31 92 17 35 12/28/18 00:00 98.8 86 16 109/53 (71) 100 12/28/18 00:00 Mechanical Ventilator 12/27/18 23:36 91 12/27/18 22:54 87 20 35 12/27/18 20:59 99 20 35 12/27/18 20:45 99.8 12/27/18 20:00 35 12/27/18 20:00 100.7 108 16 118/77 (91) 100 12/27/18 20:00 Mechanical Ventilator 12/27/18 19:21 109 12/27/18 19:10 108 24 35 12/27/18 17:09 94 20 35 12/27/18 16:00 97.9 98 17 120/70 (87) 96 12/27/18 16:00 35 12/27/18 16:00 Mechanical Ventilator 12/27/18 16:00 97 12/27/18 14:57 91 20 35 12/27/18 13:01 92 20 35 12/27/18 12:00 97.7 91 18 151/65 (93) 100 12/27/18 12:00 35 12/27/18 12:00 Mechanical Ventilator 12/27/18 11:34 88 12/27/18 11:04 90 20 35 12/27/18 08:42 92 20 35 12/27/18 08:00 98.1 91 20 146/72 (96) 100 12/27/18 08:00 Mechanical Ventilator 12/27/18 08:00 35 12/27/18 07:40 91 Height (Feet): 5 Height (Inches): 10.00 Weight (Pounds): 155 Objective Gen: NAD, Satting well on Vent 35% HEENT: NCAT, MMM, Trached on vent Lungs: CTAB Heart: RRR, S1, S2 Abdomen: soft, non-tender, G tube mild erythema around tube some drainage. Microbiology Date/Time Source Procedure Growth Status 12/25/18 21:00 Urine,Clean Catch Urine Culture - Preliminary Yeast Species Gram Negative Alex Resulted Laboratory Tests Test 12/28/18 04:30 White Blood Count 18.8 K/UL (4.8-10.8) H Red Blood Count 3.61 M/UL (4.70-6.10) L Hemoglobin 10.1 G/DL (14.2-18.0) L Hematocrit 30.4 % (42.0-52.0) L Mean Corpuscular Volume 84 FL (80-99) Mean Corpuscular Hemoglobin 28.1 PG (27.0-31.0) Mean Corpuscular Hemoglobin Concent 33.3 G/DL (32.0-36.0) Red Cell Distribution Width 14.7 % (11.6-14.8) Platelet Count 392 K/UL (150-450) Mean Platelet Volume 7.1 FL (6.5-10.1) Neutrophils (%) (Auto) % (45.0-75.0) Lymphocytes (%) (Auto) % (20.0-45.0) Monocytes (%) (Auto) % (1.0-10.0) Eosinophils (%) (Auto) % (0.0-3.0) Basophils (%) (Auto) % (0.0-2.0) Neutrophils % (Manual) Pending Lymphocytes % (Manual) Pending Platelet Estimate Pending Platelet Morphology Pending Erythrocyte Sedimentation Rate Pending Sodium Level 132 MMOL/L (136-145) L Potassium Level 4.3 MMOL/L (3.5-5.1) Chloride Level 99 MMOL/L (98-107) Carbon Dioxide Level 23 MMOL/L (21-32) Anion Gap 10 mmol/L (5-15) Blood Urea Nitrogen 38 mg/dL (7-18) H Creatinine 1.2 MG/DL (0.55-1.30) Estimat Glomerular Filtration Rate 59.9 mL/min (>60) Glucose Level 138 MG/DL (74-106) H Calcium Level 8.7 MG/DL (8.5-10.1) Phosphorus Level 4.2 MG/DL (2.5-4.9) Magnesium Level 2.0 MG/DL (1.8-2.4) Total Bilirubin 0.4 MG/DL (0.2-1.0) Aspartate Amino Transf (AST/SGOT) 13 U/L (15-37) L Alanine Aminotransferase (ALT/SGPT) 14 U/L (12-78) Alkaline Phosphatase 133 U/L (46-116) H C-Reactive Protein, Quantitative 16.2 mg/dL (0.00-0.90) H Total Protein 7.2 G/DL (6.4-8.2) Albumin 2.2 G/DL (3.4-5.0) L Globulin 5.0 g/dL Albumin/Globulin Ratio 0.4 (1.0-2.7) L Current Medications Medications (Trade) Dose Ordered Sig/Wanda Route PRN Reason Start Time Stop Time Status Last Admin Dose Admin Acetaminophen (Tylenol) 650 mg Q4H PRN GT Mild Pain/Temp > 100.5 12/15/18 10:45 01/14/19 10:44 12/27/18 20:15 Chlorhexidine Gluconate (Jasmin-Hex 2%) 1 applic DAILY@2000 TOPIC 12/11/18 20:00 01/10/19 19:59 12/27/18 20:15 Dextrose (Dextrose 50%) 25 ml Q30M PRN IV Hypoglycemia 12/08/18 16:15 01/07/19 16:14 Dextrose (Dextrose 50%) 50 ml Q30M PRN IV hypoglycemia 12/08/18 16:15 01/07/19 16:14 Heparin Sodium (Porcine) (Heparin 5000 units/ml) 5,000 units EVERY 12 HOURS SUBQ 12/08/18 21:00 01/07/19 20:59 12/27/18 20:14 Lansoprazole (Prevacid) 30 mg DAILY GT 12/18/18 09:00 01/17/19 08:59 12/27/18 09:38 Levothyroxine Sodium (Synthroid) 75 mcg Q24H GT 12/09/18 06:30 01/08/19 06:29 12/28/18 05:30 Ondansetron HCl (Zofran) 4 mg Q6H PRN IVP Nausea & Vomiting 12/08/18 16:00 01/07/19 15:59 Polyethylene Glycol (Miralax) 17 gm DAILYPRN PRN GT Constipation 12/15/18 10:45 01/07/19 15:59 Sucralfate (Carafate) 1 gm EVERY 6 HOURS GT 12/15/18 18:00 01/07/19 17:59 12/28/18 05:31 Tigecycline 50 mg/ Sodium Chloride 110 ml @ 220 mls/hr EVERY 12 HOURS IVPB 12/23/18 21:00 12/30/18 20:59 12/27/18 20:15 Vancomycin HCl (Vanco rx to dose) 1 ea DAILY PRN MISC PER PHARMACY 12/23/18 09:30 01/22/19 09:29 Vancomycin HCl 500 mg/Dextrose 110 ml @ 110 mls/hr Q12HR@1100,2300 IVPB 12/23/18 11:00 01/01/19 10:59 12/27/18 23:12 John Fiore MD Dec 28, 2018 07:21
--- NOTE | 2018-12-28 07:27 | NUR ---
RESPIRATORY NOTE: received pt on vent with current settings. trach with portex 8 secured via trach tie/guard. no redness or skin tears visible around stoma or neck area. pt is in no apparent resp distress. vent alarms are set and audible with external alarms attached and plugged into the red outlet. ambu bag also at bedside. will cont to monitor.
--- NOTE | 2018-12-28 07:55 | NUR ---
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 CURRENT TF:Osmolite 1.5 @ 60ml/hr x 22 hrs ENTERAL NUTRITION RECOMMENDATIONS: Osmolite 1.5 @ 60ml/hr x 22 hrs to provide 1320ml, 1980kcal, 83g prot, 1006ml free water * Continue current TF as tolerated * HOLD TF 1h before and 1 after Synthroid administration. * Flush per MD/ HOB over 30 degrees ADDITIONAL RECOMMENDATIONS: * Calibrated bedscale weight for accurate CBW, weekly wt monitoring * Monitor need for TF change and/or accucheck w/ SSI - h/o DM + hyperglycemia * Monitor lytes w/ TF, replete as needed * Wound care: add JOYCELYN UNFLAVORED BID via GT
[2018-12-28 08:00] VITALS: BP 103/67
--- NOTE | 2018-12-28 08:02 | Pulmonology Progress Note ---
Assessment/Plan Assessment/Plan ASSESSMENT Sepsis Aspiration PNA-s/p Rx Obstructive uropathy with infected left ureteral stone , resulting in moderate hydronephrosis Perinephric abscess due to infected ureteral stone PEG site infection UTI with Hx of recurrent UTI Acute and chronic , ventilator dependent, resp failure Tracheostomy status Dysphagia, G tube Hx of C dif colitis Anemia Hx of GI bleeding due to severe esophagitis Hypothyroidism R lateral foot ulcer not infected Hx of CVA with hemiparesis Chronic encephalopathy Psychosis PLAN OF CARE LUIS vent support, trach care, pulm toilet baseline ABG and titrate settings as needed fup with CXR s/p Rx for PNA aspiration precautions, GT feeding abx as per ID recs , check stool C dif, UCX this am + yeast, GNR urology consult appreciated, not a surgical candidate given multiple comorbidities, severe contractures and chronic resp failure along with likely chronic status of ureteral stone drainage of perinephric abscess by IR pending venous Duplex no acute DVT DVT prophylaxis monitor HH with goal to keep Hgb above 7, bowel regimen continue Levothyroxine wound care per protocol; supportive care protein supplements as per reg waste minimization technician recs case discussed and evaluated by supervising physician Subjective Allergies: Coded Allergies: NO KNOWN DRUG ALLERGIES (Verified Allergy, Unknown, 09/11/16) Subjective leukocytosis trending up this am drainage by IR of perinephric abscess pending Objective Last 24 Hour Vital Signs Date Time Temp Pulse Resp B/P (MAP) Pulse Ox O2 Delivery O2 Flow Rate FiO2 12/28/18 07:24 88 16 35 12/28/18 05:02 85 16 35 12/28/18 04:00 Mechanical Ventilator 12/28/18 04:00 99.0 87 18 112/79 (90) 100 12/28/18 04:00 35 12/28/18 03:38 88 12/28/18 02:46 96 17 35 12/28/18 01:31 92 17 35 12/28/18 00:00 98.8 86 16 109/53 (71) 100 12/28/18 00:00 Mechanical Ventilator 12/27/18 23:36 91 12/27/18 22:54 87 20 35 12/27/18 20:59 99 20 35 12/27/18 20:45 99.8 12/27/18 20:00 35 12/27/18 20:00 100.7 108 16 118/77 (91) 100 12/27/18 20:00 Mechanical Ventilator 12/27/18 19:21 109 12/27/18 19:10 108 24 35 12/27/18 17:09 94 20 35 12/27/18 16:00 97.9 98 17 120/70 (87) 96 12/27/18 16:00 35 12/27/18 16:00 Mechanical Ventilator 12/27/18 16:00 97 12/27/18 14:57 91 20 35 12/27/18 13:01 92 20 35 12/27/18 12:00 97.7 91 18 151/65 (93) 100 12/27/18 12:00 35 12/27/18 12:00 Mechanical Ventilator 12/27/18 11:34 88 12/27/18 11:04 90 20 35 12/27/18 08:42 92 20 35 Intake and Output 12/27/18 12/28/18 19:00 07:00 Intake Total 400 ml 990 ml Output Total 1000 ml 650 ml Balance -600 ml 340 ml IV Total 220 ml 220 ml Tube Feeding 120 ml 600 ml Other 60 ml 170 ml Output Urine Total 1000 ml 650 ml # Bowel Movements 3 2 General Appearance: no acute distress, cachetic, other - bedridden, vent dependent male HEENT: normocephalic, atraumatic, anicteric, status post trach Respiratory/Chest: no respiratory distress, no accessory muscle use, decreased breath sounds Cardiovascular: normal rate, regular rhythm - ST on tele , no JVD, other - RUE PICC intact Abdomen: normal bowel sounds, soft, non tender, other - J tube Extremities: no edema, pedal pulses normal Neurologic/Psychiatric: abnormal gait - bedridden , other - lethargic, contracted LE Musculoskeletal: atrophy Microbiology Date/Time Source Procedure Growth Status 12/25/18 21:00 Urine,Clean Catch Urine Culture - Preliminary Yeast Species Gram Negative Alex Resulted Laboratory Tests 12/28/18 04:30: White Blood Count 18.8H, Red Blood Count 3.61L, Hemoglobin 10.1L, Hematocrit 30.4L, Mean Corpuscular Volume 84, Mean Corpuscular Hemoglobin 28.1, Mean Corpuscular Hemoglobin Concent 33.3, Red Cell Distribution Width 14.7, Platelet Count 392, Mean Platelet Volume 7.1, Neutrophils (%) (Auto) , Lymphocytes (%) ( Auto) , Monocytes (%) (Auto) , Eosinophils (%) (Auto) , Basophils (%) (Auto) , Neutrophils % (Manual) [Pending], Lymphocytes % (Manual) [Pending], Platelet Estimate [Pending], Platelet Morphology [Pending], Erythrocyte Sedimentation Rate [Pending], Sodium Level 132L, Potassium Level 4.3, Chloride Level 99, Carbon Dioxide Level 23, Anion Gap 10, Blood Urea Nitrogen 38H, Creatinine 1.2, Estimat Glomerular Filtration Rate 59.9, Glucose Level 138H, Calcium Level 8.7, Phosphorus Level 4.2, Magnesium Level 2.0, Total Bilirubin 0.4, Aspartate Amino Transf (AST/SGOT) 13L, Alanine Aminotransferase (ALT/SGPT) 14, Alkaline Phosphatase 133H, C-Reactive Protein, Quantitative 16.2H, Total Protein 7.2, Albumin 2.2L, Globulin 5.0, Albumin/Globulin Ratio 0.4L Current Medications Medications (Trade) Dose Ordered Sig/Wanda Route PRN Reason Start Time Stop Time Status Last Admin Dose Admin Acetaminophen (Tylenol) 650 mg Q4H PRN GT Mild Pain/Temp > 100.5 12/15/18 10:45 01/14/19 10:44 12/27/18 20:15 Chlorhexidine Gluconate (Jasmin-Hex 2%) 1 applic DAILY@2000 TOPIC 12/11/18 20:00 01/10/19 19:59 12/27/18 20:15 Dextrose (Dextrose 50%) 25 ml Q30M PRN IV Hypoglycemia 12/08/18 16:15 01/07/19 16:14 Dextrose (Dextrose 50%) 50 ml Q30M PRN IV hypoglycemia 12/08/18 16:15 01/07/19 16:14 Heparin Sodium (Porcine) (Heparin 5000 units/ml) 5,000 units EVERY 12 HOURS SUBQ 12/08/18 21:00 01/07/19 20:59 12/27/18 20:14 Lansoprazole (Prevacid) 30 mg DAILY GT 12/18/18 09:00 01/17/19 08:59 12/27/18 09:38 Levothyroxine Sodium (Synthroid) 75 mcg Q24H GT 12/09/18 06:30 01/08/19 06:29 12/28/18 05:30 Ondansetron HCl (Zofran) 4 mg Q6H PRN IVP Nausea & Vomiting 12/08/18 16:00 01/07/19 15:59 Polyethylene Glycol (Miralax) 17 gm DAILYPRN PRN GT Constipation 12/15/18 10:45 01/07/19 15:59 Sucralfate (Carafate) 1 gm EVERY 6 HOURS GT 12/15/18 18:00 01/07/19 17:59 12/28/18 05:31 Tigecycline 50 mg/ Sodium Chloride 110 ml @ 220 mls/hr EVERY 12 HOURS IVPB 12/23/18 21:00 12/30/18 20:59 12/27/18 20:15 Vancomycin HCl (Vanco rx to dose) 1 ea DAILY PRN MISC PER PHARMACY 12/23/18 09:30 01/22/19 09:29 Vancomycin HCl 500 mg/Dextrose 110 ml @ 110 mls/hr Q12HR@1100,2300 IVPB 12/23/18 11:00 01/01/19 10:59 12/27/18 23:12 Amina Garcia [employer] Dec 28, 2018 08:02
[2018-12-28] MEDS: Tigecycline 50 MG in NS 110 ML IVPB SCH ×2 (08:13→20:18)
[2018-12-28] MEDS: Heparin 5000 units/ml inj SUBQ SCH ×2 (08:18→20:18)
[2018-12-28] MEDS ORDERED: Albuterol/Ipratropium 3ml neb HHN PRN (09:30)
[2018-12-28] MEDS: Vancomycin 500mg/D5W 110ml IVPB SCH ×4 (11:22→23:06)
[2018-12-28 12:00] VITALS: BP 142/70
[2018-12-28 16:00] VITALS: BP 130/74
--- NOTE | 2018-12-28 16:50 | NUR ---
CASE MANAGEMENT: REVIEW SI: ASPIRATION PNA . PEG SITE INFECTION . ANEMIA T 99.1 HR 105 RR 24 BP 142/70 SAT 100% MECH VENT FIO2 35 WBC 18.8 H/H 10.1/30.4 NA 132 BUN 38 IS: TIGECYCLINE IV Q12HR VANCO IV Q12HR PRBC'S PRN STEP DOWN UNIT STATUS DCP: PATIENT IS FROM [facility]
--- NOTE | 2018-12-28 19:20 | NUR ---
HAND-OFF: Report given to Jarek Dow RN.
[2018-12-28 20:00] VITALS: BP 143/70
[2018-12-28] MEDS: Dyna-Hex 2% Top Sol 2oz TOPIC SCH (20:18)
--- NOTE | 2018-12-28 22:17 | General Progress Note ---
Assessment/Plan Problem List: (1) Severe protein-calorie malnutrition ICD Codes: E43 - Unspecified severe protein-calorie malnutrition SNOMED: 030962198 (2) Feeding by G-tube ICD Codes: Z93.1 - Gastrostomy status SNOMED: 016768378, 082245067 (3) Anemia ICD Codes: D64.9 - Anemia, unspecified SNOMED: 775745665 (4) Chronic respiratory failure ICD Codes: J96.10 - Chronic respiratory failure, unspecified whether with hypoxia or hypercapnia SNOMED: 69168696 (5) Esophagitis ICD Codes: K20.9 - Esophagitis SNOMED: 77971505 (6) Hypothyroidism ICD Codes: E03.9 - Hypothyroidism, unspecified SNOMED: 66971188 (7) Aspiration pneumonia ICD Codes: J69.0 - Pneumonitis due to inhalation of food and vomit SNOMED: 532545763 (8) Leukocytosis ICD Codes: D72.829 - Elevated white blood cell count, unspecified SNOMED: 809234438, 626351193 Qualifiers: Qualified Codes: D72.828 - Other elevated white blood cell count (9) Contracture of multiple joints ICD Codes: M24.50 - Contracture, unspecified joint SNOMED: 56826818, 747065037 Assessment: gerd asa pna hypothroid vitals stable no acute events check labs and vitals Subjective ROS Limited/Unobtainable: Yes Allergies: Coded Allergies: NO KNOWN DRUG ALLERGIES (Verified Allergy, Unknown, 09/11/16) Objective Last 24 Hour Vital Signs Date Time Temp Pulse Resp B/P (MAP) Pulse Ox O2 Delivery O2 Flow Rate FiO2 12/28/18 21:06 101 22 35 12/28/18 20:00 97.9 97 20 143/70 (94) 99 12/28/18 20:00 35 12/28/18 20:00 102 12/28/18 20:00 Mechanical Ventilator 12/28/18 19:30 102 23 35 12/28/18 17:23 102 26 35 12/28/18 16:00 Mechanical Ventilator 12/28/18 16:00 35 12/28/18 16:00 99.1 97 20 130/74 (92) 100 12/28/18 15:00 94 12/28/18 14:55 93 18 35 12/28/18 14:54 93 18 Mechanical Ventilator 35 12/28/18 12:42 105 23 35 12/28/18 12:00 35 12/28/18 12:00 97 12/28/18 12:00 98.9 95 24 142/70 (94) 100 12/28/18 12:00 Mechanical Ventilator 12/28/18 10:49 90 22 35 12/28/18 09:00 Mechanical Ventilator 12/28/18 08:48 86 17 35 12/28/18 08:00 84 12/28/18 08:00 98.9 86 16 103/67 (79) 100 12/28/18 08:00 35 12/28/18 07:24 88 16 35 12/28/18 05:02 85 16 35 12/28/18 04:00 Mechanical Ventilator 12/28/18 04:00 99.0 87 18 112/79 (90) 100 12/28/18 04:00 35 12/28/18 03:38 88 12/28/18 02:46 96 17 35 12/28/18 01:31 92 17 35 12/28/18 00:00 98.8 86 16 109/53 (71) 100 12/28/18 00:00 Mechanical Ventilator 12/27/18 23:36 91 12/27/18 22:54 87 20 35 Intake and Output 12/27/18 12/28/18 19:00 07:00 Intake Total 400 ml 990 ml Output Total 1000 ml 650 ml Balance -600 ml 340 ml IV Total 220 ml 220 ml Tube Feeding 120 ml 600 ml Other 60 ml 170 ml Output Urine Total 1000 ml 650 ml # Bowel Movements 3 2 Laboratory Tests 12/28/18 04:30: White Blood Count 18.8H, Red Blood Count 3.61L, Hemoglobin 10.1L, Hematocrit 30.4L, Mean Corpuscular Volume 84, Mean Corpuscular Hemoglobin 28.1, Mean Corpuscular Hemoglobin Concent 33.3, Red Cell Distribution Width 14.7, Platelet Count 392, Mean Platelet Volume 7.1, Neutrophils (%) (Auto) , Lymphocytes (%) ( Auto) , Monocytes (%) (Auto) , Eosinophils (%) (Auto) , Basophils (%) (Auto) , Differential Total Cells Counted 100, Neutrophils % (Manual) 86H, Lymphocytes % (Manual) 8L, Monocytes % (Manual) 6, Eosinophils % (Manual) 0, Basophils % ( Manual) 0, Band Neutrophils 0, Platelet Estimate Adequate, Platelet Morphology Normal, Anisocytosis 1+, Erythrocyte Sedimentation Rate 61H, Sodium Level 132L, Potassium Level 4.3, Chloride Level 99, Carbon Dioxide Level 23, Anion Gap 10, Blood Urea Nitrogen 38H, Creatinine 1.2, Estimat Glomerular Filtration Rate 59.9 , Glucose Level 138H, Calcium Level 8.7, Phosphorus Level 4.2, Magnesium Level 2.0, Total Bilirubin 0.4, Aspartate Amino Transf (AST/SGOT) 13L, Alanine Aminotransferase (ALT/SGPT) 14, Alkaline Phosphatase 133H, C-Reactive Protein, Quantitative 16.2H, Total Protein 7.2, Albumin 2.2L, Globulin 5.0, Albumin/ Globulin Ratio 0.4L Height (Feet): 5 Height (Inches): 10.00 Weight (Pounds): 155 EENT: PERRL/EOMI Neck: supple Cardiovascular: normal rate Respiratory/Chest: lungs clear Abdomen: soft Sven Johns MD Dec 28, 2018 22:17
--- NOTE | 2018-12-28 23:00 | NUR ---
NURSE NOTES: Bed bath, oral care done. Wound pictures taken and uploaded. Noted with redness at the back, bilateral heels DTI, bilateral lateral feet redness. Dressings changed and wound assessment done. See wound color pictures and wound intervention.
[2018-12-29] VITALS: BP 122/69
--- NOTE | 2018-12-29 | NUR ---
NURSE NOTES: GT feeding turned off for planned insertion of percutaneous drainage in the morning. Patient with eyes closed, non verbal, withdraws to pain. No shortness of breath. Appears comfortable, no pain. head of bed kept elevated.
[2018-12-29] MEDS: Sucralfate 1gm tab GT SCH ×5 (00:10→23:33)
[2018-12-29 04:00] VITALS: BP 125/68
[2018-12-29 05:52] LABS: HEMATOCRIT 29.9 % (42.0-52.0); HEMOGLOBIN 9.8 G/DL (14.2-18.0); MEAN CORPUSCULAR VOLUME 84 FL (80-99); PLATELET COUNT 392 K/UL (150-450); RED BLOOD COUNT 3.55 M/UL (4.70-6.10); RED CELL DISTRIBUTION WIDTH 14.6 % (11.6-14.8); WHITE BLOOD COUNT 20.9 K/UL (4.8-10.8)
[2018-12-29 05:58] LABS: ANION GAP 8 mmol/L (5-15); BLOOD UREA NITROGEN 39 mg/dL (7-18); CALCIUM 8.8 MG/DL (8.5-10.1); CARBON DIOXIDE 24 MMOL/L (21-32); CHLORIDE 99 MMOL/L (98-107); CREATININE 1.4 MG/DL (0.55-1.30); POTASSIUM 4.5 MMOL/L (3.5-5.1); SODIUM 131 MMOL/L (136-145)
--- NOTE | 2018-12-29 07:02 | NUR ---
HAND-OFF: Report given to .Deborah RN
--- NOTE | 2018-12-29 07:03 | NUR ---
NURSE NOTES: Received patient in bed. Vent dependent. Condom cath in place. No respiratory distress. Contact isolation observed. Will continue plan of care.
--- NOTE | 2018-12-29 07:17 | NUR ---
RESPIRATORY NOTE: Received pt. on 840 vent. Vent settings are: A/C rate of 16, Vt 600, FI02 35%, PEEP +5. No respiratory distress noted, pt. sP02 @ 100%. Vent plugged on red outlet. Will continue to monitor pt.
[2018-12-29 08:00] VITALS: BP 129/70
[2018-12-29] MEDS: Tigecycline 50 MG in NS 110 ML IVPB SCH ×2 (09:00→20:14)
[2018-12-29] MEDS: Heparin 5000 units/ml inj SUBQ SCH ×2 (09:02→20:15)
--- NOTE | 2018-12-29 10:06 | Pulmonology Progress Note ---
Assessment/Plan Assessment/Plan ASSESSMENT Sepsis Aspiration PNA-s/p Rx Obstructive uropathy with infected left ureteral stone , resulting in moderate hydronephrosis Perinephric abscess due to infected ureteral stone PEG site infection UTI with Hx of recurrent UTI Acute and chronic , ventilator dependent, resp failure Tracheostomy status Dysphagia, G tube Hx of C dif colitis Anemia Hx of GI bleeding due to severe esophagitis Hypothyroidism R lateral foot ulcer not infected Hx of CVA with hemiparesis Chronic encephalopathy Psychosis KAYLENE HypoNa PLAN OF CARE LUIS vent support, trach care, pulm toilet baseline ABG noted, likely bad sample ( venous blood), repeat in am and titrate settings as needed -clinically appeared stable, no signs of resp distress fup with CXR in am s/p Rx for PNA aspiration precautions, GT feeding abx as per ID recs , check stool C dif, UCX + yeast, GNR leukocytosis trending up, likely due to abscess, drainage by IR pending urology consult appreciated, not a surgical candidate given multiple comorbidities, severe contractures and chronic resp failure along with likely chronic status of ureteral stone venous Duplex no acute DVT DVT prophylaxis monitor HH with goal to keep Hgb above 7, start IVF with NS x 1 L, bowel regimen continue Levothyroxine wound care per protocol; supportive care protein supplements as 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 reg senior interactive producer recs case discussed and evaluated by supervising physician Subjective Allergies: Coded Allergies: NO KNOWN DRUG ALLERGIES (Verified Allergy, Unknown, 09/11/16) Subjective leukocytosis trending up , no fever this am drainage by IR of perinephric abscess pending Na down to 131, creat up to 1.4 Objective Last 24 Hour Vital Signs Date Time Temp Pulse Resp B/P (MAP) Pulse Ox O2 Delivery O2 Flow Rate FiO2 12/29/18 08:00 98.2 89 16 129/70 (89) 100 12/29/18 08:00 35 12/29/18 08:00 Mechanical Ventilator 12/29/18 07:51 85 12/29/18 07:15 88 16 35 12/29/18 05:30 90 16 35 12/29/18 04:00 Mechanical Ventilator 12/29/18 04:00 98.2 93 17 125/68 (87) 100 12/29/18 04:00 35 12/29/18 04:00 91 12/29/18 03:30 92 16 35 12/29/18 01:30 105 24 35 12/29/18 00:00 98.4 97 18 122/69 (86) 100 12/29/18 00:00 Mechanical Ventilator 12/29/18 00:00 35 12/29/18 00:00 108 12/28/18 23:13 108 25 35 12/28/18 21:06 101 22 35 12/28/18 20:00 97.9 97 20 143/70 (94) 99 12/28/18 20:00 35 12/28/18 20:00 102 12/28/18 20:00 Mechanical Ventilator 12/28/18 19:30 102 23 35 12/28/18 17:23 102 26 35 12/28/18 16:00 Mechanical Ventilator 12/28/18 16:00 35 12/28/18 16:00 99.1 97 20 130/74 (92) 100 12/28/18 15:00 94 12/28/18 14:55 93 18 35 12/28/18 14:54 93 18 Mechanical Ventilator 35 12/28/18 12:42 105 23 35 12/28/18 12:00 35 12/28/18 12:00 97 12/28/18 12:00 98.9 95 24 142/70 (94) 100 12/28/18 12:00 Mechanical Ventilator 12/28/18 10:49 90 22 35 Intake and Output 12/28/18 12/29/18 18:59 06:59 Intake Total 1250 ml 690 ml Output Total 750 ml 400 ml Balance 500 ml 290 ml Intake Free Water 200 ml 50 ml IV Total 330 ml 220 ml Tube Feeding 720 ml 360 ml Other 60 ml Output Urine Total 750 ml 400 ml Objective General Appearance: no acute distress, cachetic, o bedridden, vent dependent male HEENT: normocephalic, atraumatic, anicteric, status post trach Respiratory/Chest: no respiratory distress, no accessory muscle use, decreased breath sounds Cardiovascular: normal rate, regular rhythm - SR on tele , no JVD, RUE PICC intact Abdomen: normal bowel sounds, soft, non tender, G tube Extremities: no edema, pedal pulses normal Neurologic/Psychiatric: abnormal gait - bedridden , other - lethargic, contracted LE Musculoskeletal: atrophy Laboratory Tests 12/29/18 04:00: Arterial Blood pH 7.389, Arterial Blood Partial Pressure CO2 41.1, Arterial Blood Partial Pressure O2 < 45.3*L, Arterial Blood HCO3 24.3, Arterial Blood Oxygen Saturation 31.6*L, Arterial Blood Base Excess -0.7, Ger Test Positive 12/29/18 05:00: White Blood Count 20.9H, Red Blood Count 3.55L, Hemoglobin 9.8L, Hematocrit 29.9L, Mean Corpuscular Volume 84, Mean Corpuscular Hemoglobin 27.6, Mean Corpuscular Hemoglobin Concent 32.8, Red Cell Distribution Width 14.6, Platelet Count 392, Mean Platelet Volume 7.7, Neutrophils (%) (Auto) , Lymphocytes (%) ( Auto) , Monocytes (%) (Auto) , Eosinophils (%) (Auto) , Basophils (%) (Auto) , Differential Total Cells Counted 100, Neutrophils % (Manual) 77H, Lymphocytes % (Manual) 13L, Monocytes % (Manual) 8, Eosinophils % (Manual) 2, Basophils % ( Manual) 0, Band Neutrophils 0, Platelet Estimate Adequate, Platelet Morphology Normal, Anisocytosis 1+, Sodium Level 131L, Potassium Level 4.5, Chloride Level 99, Carbon Dioxide Level 24, Anion Gap 8, Blood Urea Nitrogen 39H, Creatinine 1.4H, Estimat Glomerular Filtration Rate 50.1, Glucose Level 103, Calcium Level 8.8 Current Medications Medications (Trade) Dose Ordered Sig/Wanda Route PRN Reason Start Time Stop Time Status Last Admin Dose Admin Acetaminophen (Tylenol) 650 mg Q4H PRN GT Mild Pain/Temp > 100.5 12/15/18 10:45 01/14/19 10:44 12/27/18 20:15 Albuterol/ Ipratropium (Albuterol/ Ipratropium) 3 ml Q4H PRN HHN Shortness of Breath 12/28/18 09:30 01/02/19 09:29 Chlorhexidine Gluconate (Jasmin-Hex 2%) 1 applic DAILY@1999 TOPIC 12/11/18 20:00 01/10/19 19:59 12/28/18 20:18 Dextrose (Dextrose 50%) 25 ml Q30M PRN IV Hypoglycemia 12/08/18 16:15 01/07/19 16:14 Dextrose (Dextrose 50%) 50 ml Q30M PRN IV hypoglycemia 12/08/18 16:15 01/07/19 16:14 Heparin Sodium (Porcine) (Heparin 5000 units/ml) 5,000 units EVERY 12 HOURS SUBQ 12/08/18 21:00 01/07/19 20:59 12/29/18 09:02 Lansoprazole (Prevacid) 30 mg DAILY GT 12/18/18 09:00 01/17/19 08:59 12/29/18 09:00 Levothyroxine Sodium (Synthroid) 75 mcg Q24H GT 12/09/18 06:30 01/08/19 06:29 12/29/18 05:54 Ondansetron HCl (Zofran) 4 mg Q6H PRN IVP Nausea & Vomiting 12/08/18 16:00 01/07/19 15:59 Polyethylene Glycol (Miralax) 17 gm DAILYPRN PRN GT Constipation 12/15/18 10:45 01/07/19 15:59 Sucralfate (Carafate) 1 gm EVERY 6 HOURS GT 12/15/18 18:00 01/07/19 17:59 12/29/18 05:54 Tigecycline 50 mg/ Sodium Chloride 110 ml @ 220 mls/hr EVERY 12 HOURS IVPB 12/23/18 21:00 12/30/18 20:59 12/29/18 09:00 Vancomycin HCl (Vanco rx to dose) 1 ea DAILY PRN MISC PER PHARMACY 12/23/18 09:30 01/22/19 09:29 Vancomycin HCl 500 mg/Dextrose 110 ml @ 110 mls/hr Q12HR@1100,2300 IVPB 12/23/18 11:00 01/01/19 10:59 12/28/18 23:06 Amina Garcia NP Dec 29, 2018 10:06
[2018-12-29] MEDS: Vancomycin 500mg/D5W 110ml IVPB SCH ×4 (11:10→23:33)
[2018-12-29 12:00] VITALS: BP 124/74
--- NOTE | 2018-12-29 13:27 | NUR ---
PIANO [employer]SEM[employer]ION[employer] ITEM SI:ASPIRATION PNA . PEG SITE INFECTION . ANEMIA VS: BP 120/54, P 100, T 97.7, RR 23, SpO2 100 on VENT AC 16, TV 600, PEEP 5.0, FiO2 35 WBC 20.9, RBC 3.55, Hgb 9.8, Hct 29.9, Na 131, BUN 39 IS:NS x1L IV TIGECYCLINE 110ml IVPB VANCOMYCIN HCI 110ml IVPB SYNTHROID 75mcg HEPARIN SUBQ SDU STATUS
[2018-12-29] MEDS ORDERED: NS 275ml ONE (15:23)
[2018-12-29] MEDS: Acetaminophen 650mg/20.3ml GT PRN (15:30)
[2018-12-29 16:00] VITALS: BP 123/63
--- NOTE | 2018-12-29 19:30 | NUR ---
NURSE NOTES: Endorsement recieved from ODILIA Cabrera. Patient opens eyes. Does not track. Withdraws to pain. Bilateral upper and lower arms contracted. With trache to vent. Portex 8.0, AC 16, Vt 600, PEEP 5, 35% FiO2. No shortness of breath. GT patent and intact. On Osmolite 1.5 at 60ml/hr. Residual checked, no residual noted. Right upper arm PICC, patent. Condom catheter in place. On P200 mattress. On seizure and fall precautions. Head of bed elevated. Bed alarm on. Bed locked and in lowest position.
--- NOTE | 2018-12-29 19:35 | NUR ---
HAND-OFF: Report given to Violeta Dinh RN. Remains vent dependent.
[2018-12-29 20:00] VITALS: BP 120/54
[2018-12-29] MEDS: Dyna-Hex 2% Top Sol 2oz TOPIC SCH (20:14)
[2018-12-30] VITALS: BP 127/67
--- NOTE | 2018-12-30 01:00 | NUR ---
NURSE NOTES: Pt's resting in bed, in no acute distress. VS stable. NPO at this time for procedure in AM. Will continue to monitor.
[2018-12-30 04:00] VITALS: BP 140/64
[2018-12-30 04:42] LABS: BASOPHILS % (AUTO) 1.3 % (0.0-2.0); EOSINOPHILS % (AUTO) 1.7 % (0.0-3.0); HEMATOCRIT 30.1 % (42.0-52.0); HEMOGLOBIN 9.7 G/DL (14.2-18.0); LYMPHOCYTES % (AUTO) 11.2 % (20.0-45.0); MEAN CORPUSCULAR VOLUME 85 FL (80-99); MONOCYTES % (AUTO) 12.4 % (1.0-10.0); NEUTROPHILS % (AUTO) 73.5 % (45.0-75.0); PLATELET COUNT 380 K/UL (150-450); RED BLOOD COUNT 3.55 M/UL (4.70-6.10); RED CELL DISTRIBUTION WIDTH 14.5 % (11.6-14.8); WHITE BLOOD COUNT 15.3 K/UL (4.8-10.8)
[2018-12-30 04:53] LABS: ANION GAP 10 mmol/L (5-15); BLOOD UREA NITROGEN 35 mg/dL (7-18); CALCIUM 8.6 MG/DL (8.5-10.1); CARBON DIOXIDE 23 MMOL/L (21-32); CHLORIDE 99 MMOL/L (98-107); CREATININE 1.1 MG/DL (0.55-1.30); POTASSIUM 4.1 MMOL/L (3.5-5.1); SODIUM 132 MMOL/L (136-145)
[2018-12-30] MEDS: Sucralfate 1gm tab GT SCH ×3 (06:07→17:35)
--- NOTE | 2018-12-30 07:18 | NUR ---
RESPIRATORY NOTE: received pt on current vent settings, trached with portex [address]; secured via trach tie/guard. no resp distress noted at this time. no redness or skin tears visible around stoma. vent alarms are on and audible with vent plugged into the red outlet. ambu bag also at bedside. will cont to monitor.
--- NOTE | 2018-12-30 07:30 | NUR ---
HAND-OFF: Report given to ODILIA Dennis.
[2018-12-30 08:00] VITALS: BP 129/71
--- NOTE | 2018-12-30 08:10 | NUR ---
NURSE NOTES: received pt in the bed, obtunded,vent dependent, vital signs stable, no co pain, no SOB, skin warm and dry to touch, contracted, PICC line on RT upper arm, dressing dry and intact, condom catheter with yellow urine, GT, bed in low position, HOB elevated.
--- NOTE | 2018-12-30 08:15 | NUR ---
RADIOLOGY: PCXR COMPLETED 0815 HRS. BY NF, FA
[2018-12-30] MEDS: Tigecycline 50 MG in NS 110 ML IVPB SCH ×2 (08:52→20:46)
[2018-12-30] MEDS: Heparin 5000 units/ml inj SUBQ SCH ×2 (08:56→21:00)
--- NOTE | 2018-12-30 10:18 | Pulmonolgy Critical Care Note ---
Critical Care - Asmt/Plan Problems: (1) Respiratory failure, [id number] (2) Aspiration pneumonia (3) Severe sepsis (4) Anemia (5) Psychosis (6) Hypothyroidism (7) Severe protein-calorie malnutrition (8) Feeding by G-tube Respiratory: monitor respiratory rate, adjust FIO2, CXR Cardiac: continue pressors, continue to monitor HR/BP Renal: F/U I&O, keep IV fluid, check electrolytes Infectious Disease: check cultures Gastrointestinal: continue feedings/current rate Endocrine: monitor blood sugar, check TSH Hematologic: transfuse if hgb<8.5 Neurologic: PRN Ativan, PRN Morphine, keep patient comfortable Affect: PRN ativan Prophylaxis: Protonix Notes Reviewed: cardio, 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 with: nurses, consultants, case managersmaterials and processes manager - Objective Last 24 Hour Vital Signs Date Time Temp Pulse Resp B/P (MAP) Pulse Ox O2 Delivery O2 Flow Rate FiO2 12/30/18 08:38 87 17 35 12/30/18 08:00 35 12/30/18 08:00 Mechanical Ventilator 12/30/18 08:00 98.2 84 20 129/71 (90) 100 12/30/18 07:17 91 19 35 12/30/18 04:44 90 17 35 12/30/18 04:00 Mechanical Ventilator 12/30/18 04:00 35 12/30/18 04:00 90 12/30/18 04:00 98.5 94 23 140/64 (89) 100 12/30/18 03:30 99 21 35 12/30/18 01:13 88 18 35 12/30/18 00:00 98.4 98 23 127/67 (87) 100 12/30/18 00:00 Mechanical Ventilator 12/30/18 00:00 97 12/29/18 23:24 90 19 35 12/29/18 21:09 84 17 35 12/29/18 20:00 Mechanical Ventilator 12/29/18 20:00 35 12/29/18 20:00 97.7 71 23 120/54 (76) 100 12/29/18 20:00 80 12/29/18 19:04 92 17 35 12/29/18 16:30 95 16 35 12/29/18 16:00 35 12/29/18 16:00 Mechanical Ventilator 12/29/18 16:00 97.8 95 23 123/63 (83) 98 4/21/19 15:07 100 12/29/18 14:55 98 18 35 12/29/18 12:00 35 12/29/18 12:00 Mechanical Ventilator 12/29/18 12:00 98.6 89 17 124/74 (91) 97 12/29/18 11:37 85 12/29/18 11:18 89 20 35 Status: somnolent Condition: critical HEENT: atraumatic Neck: full ROM Lungs: clear Heart: HR/BP stable Abdomen: soft, non-tender Extremities: no C/C/E Critical Care - Subjective ROS Limited/Unobtainable: Yes Condition: critical EKG Rhythm: Sinus Rhythm FI02: 35 Vent Support Breath Rate: 16 Vent Support Mode: AC Vent Tidal Volume: 600 Sputum Amount: Small PEEP: 5.0 PIP: 24 Tube Feeding Amount: 0 I&O: Intake and Output 12/29/18 12/30/18 18:59 06:59 Intake Total 1740 ml 755 ml Output Total 650 ml Balance 1090 ml 755 ml IV Total 760 ml 295 ml Tube Feeding 720 ml 360 ml Other 260 ml 100 ml Output Urine Total 650 ml Labs: Laboratory Tests Test 12/29/18 21:55 12/30/18 04:05 12/30/18 07:40 Vancomycin Level Trough 20.4 ug/mL (5.0-12.0) H White Blood Count 15.3 K/UL (4.8-10.8) H Red Blood Count 3.55 M/UL (4.70-6.10) L Hemoglobin 9.7 G/DL (14.2-18.0) L Hematocrit 30.1 % (42.0-52.0) L Mean Corpuscular Volume 85 FL (80-99) Mean Corpuscular Hemoglobin 27.4 PG (27.0-31.0) Mean Corpuscular Hemoglobin Concent 32.3 G/DL (32.0-36.0) Red Cell Distribution Width 14.5 % (11.6-14.8) Platelet Count 380 K/UL (150-450) Mean Platelet Volume 7.0 FL (6.5-10.1) Neutrophils (%) (Auto) 73.5 % (45.0-75.0) Lymphocytes (%) (Auto) 11.2 % (20.0-45.0) L Monocytes (%) (Auto) 12.4 % (1.0-10.0) H Eosinophils (%) (Auto) 1.7 % (0.0-3.0) Basophils (%) (Auto) 1.3 % (0.0-2.0) Sodium Level 132 MMOL/L (136-145) L Potassium Level 4.1 MMOL/L (3.5-5.1) Chloride Level 99 MMOL/L (98-107) Carbon Dioxide Level 23 MMOL/L (21-32) Anion Gap 10 mmol/L (5-15) Blood Urea Nitrogen 35 mg/dL (7-18) H Creatinine 1.1 MG/DL (0.55-1.30) Estimat Glomerular Filtration Rate > 60 mL/min (>60) Glucose Level 134 MG/DL (74-106) H Calcium Level 8.6 MG/DL (8.5-10.1) Arterial Blood pH 7.495 (7.350-7.450) Arterial Blood Partial Pressure CO2 22.8 mmHg (35.0-45.0) *L Arterial Blood Partial Pressure O2 167.6 mmHg (75.0-100.0) H Arterial Blood HCO3 17.2 mmol/L (22.0-26.0) *L Arterial Blood Oxygen Saturation 98.8 % (95-100) Arterial Blood Base Excess -4.6 (-2-2) L Ger Test Positive Huma Keating MD Dec 30, 2018 10:18
--- NOTE | 2018-12-30 10:23 | Diagnostic Imaging Report ---
Indication: Shortness of breath Technique: One view of the chest Comparison: 12/23/2018 Findings: Tracheostomy again demonstrated. Right arm PICC again demonstrated. Lungs and pleural spaces are clear. The heart size is normal. The aorta is tortuous and calcified. Findings are unchanged Impression: No acute process. Findings as noted
[2018-12-30] MEDS: Vancomycin 500mg/D5W 110ml IVPB SCH ×4 (11:29→22:57)
[2018-12-30 12:00] VITALS: BP 122/65
--- NOTE | 2018-12-30 13:21 | Infectious Diseases Prog Note ---
Assessment/Plan Assessment/Plan Abx: IV Vancomycin 12/08- Cefepime 12/08- Assessment: Leukocytosis - improving - PEG site with purulent discharge -Infected obstructive ureteral stone w/ adjacent abscess and moderate L hydronephrosis -12/25 u/a wbc 15-20, nit neg, leuk +3; ucx <10k GNR -12/24 CT abd/p: : Positive for 18 x 12 mm calculus within the proximal left ureter, approximately 5 cm distal to ureteropelvic junction. This results in moderate left hydronephrosis. Thinning of the cortex suggests that this is likely long- standing Abnormal appearance to the left proximal ureteral and renal pelvic urothelium as well as of the renal parenchyma, consistent with nephritis, pyelitis, and ureter right is. Multiloculated fluid collection with rim enhancement anterior to the proximal ureter adjacent to the stone. This is probably an abscess related to the stone and a pyelitis. Unusually, however, it appears largely anterior to Gerota's fascia rather than within it. Bladder wall thickening, suggests cystitis or chronic bladder outlet obstruction. Given the asymmetry of the bladder wall thickening, the possibility of tumor should also be considered. Nonobstructive bilateral intrarenal calculi, new/increased since prior exam of 01/19/2016. Rectal distention with stool. Mild rectal wall thickening. Findings could indicate fecal impaction with associated stercoral proctitis. However, findings are somewhat similar to the prior 2015 exam and could just be baseline for this patient. Gastrostomy in good position. No apparent complication associated with such. Marked laxity of the central lower abdominal wall musculature resulting in anterior protuberance of the abdomen and contents, without definite james herniation or obstruction. Probable granulomatous calcification within the mediastinum 12/18/18 Cx growing KPC K pna (S Tigecycline), ESBL E. coli (S Tigecycline ) and CoNS -CXR: No acute process. Right basilar atelectasis -Sp cx 12/09/18 E.coli (ESBL), P.a. 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 diff Dysphagia s/p G-tube Anemia. CVA/TIA w/ hemiplegia functional quadriplegia chronic encephalopathy CAD CHF Dm2 GIB s/p multiple EGDs in the past hx of severe esophagitis schizoaffective disease half-way resident multiple admissions VRE colonization Plan: - Cont Vancomcyin and tigecycline #8 for PEG site infection and pending UCx - f/u cx -For IR drainage of perinephric abscess -send bacterial cx -URo f/u: not candidate for surgical intervention given chronicity, comorbidities and loss of function of L kidney - 12/23/18 SP Zosyn #11, inhaled colistin #8 for MDR P.a.for sputum organism and Fluconazole #7 for Yeast it the urine - 12/12 S/P Vancomycin and Cefepime #5 -12/08 SP Levaquin x1 -11/06 SP Amikacin #6 -11/01 SP Meropenem #4 -10/29 SP IV Vanco #2, Cefepime #2 and Tigecycline #1 -10/28 SP LEavquin x1 -10/09 SP Ertapenem #5 - 10/04 SP Meropenem #2 -10/03/18 SP IV Vancomycin #2 and Cefepime #2 -08/09/18 SP Bactrim #7 -08/03 SP Vancomycin and Cefepime #3 -08/01/18 SP Ceftriaxone x1 -Monitor CBC/CMP, temperatures -Peg/trach care -aspiration precautions Will continue to follow along with you. Discussed with RN and Dr Keating Patient cannot sign consent. The CT guided drainage for abscess is medically necessary Subjective Allergies: Coded Allergies: NO KNOWN DRUG ALLERGIES (Verified Allergy, Unknown, 09/11/16) Subjective afebrile leukocytosis improvED Objective Vital Signs Last 24 Hour Vital Signs Date Time Temp Pulse Resp B/P (MAP) Pulse Ox O2 Delivery O2 Flow Rate FiO2 12/30/18 12:57 96 18 35 12/30/18 12:00 Mechanical Ventilator 12/30/18 12:00 98.2 80 17 122/65 (84) 100 12/30/18 12:00 35 12/30/18 10:37 87 17 35 12/30/18 08:38 87 17 35 12/30/18 08:00 83 12/30/18 08:00 35 12/30/18 08:00 Mechanical Ventilator 12/30/18 08:00 98.2 84 20 129/71 (90) 100 12/30/18 07:17 91 19 35 12/30/18 04:44 90 17 35 12/30/18 04:00 Mechanical Ventilator 12/30/18 04:00 35 12/30/18 04:00 90 12/30/18 04:00 98.5 94 23 140/64 (89) 100 12/30/18 03:30 99 21 35 12/30/18 01:13 88 18 35 12/30/18 00:00 98.4 98 23 127/67 (87) 100 12/30/18 00:00 Mechanical Ventilator 12/30/18 00:00 97 12/29/18 23:24 90 19 35 12/29/18 21:09 84 17 35 12/29/18 20:00 Mechanical Ventilator 12/29/18 20:00 35 12/29/18 20:00 97.7 71 23 120/54 (76) 100 12/29/18 20:00 80 12/29/18 19:04 92 17 35 12/29/18 16:30 95 16 35 12/29/18 16:00 35 12/29/18 16:00 Mechanical Ventilator 12/29/18 16:00 97.8 95 23 123/63 (83) 98 12/29/18 15:07 100 12/29/18 14:55 98 18 35 Height (Feet): 5 Height (Inches): 10.00 Weight (Pounds): 155 Objective Status: awake Condition: critical HEENT: atraumatic Neck: full ROM, trach Lungs: rales, rhonchi Heart: HR/BP stable, HR/BP unstable Abdomen: soft, non-tender Extremities: edema Decubiti: location Laboratory Tests Test 12/29/18 21:55 12/30/18 04:05 12/30/18 07:40 Vancomycin Level Trough 20.4 ug/mL (5.0-12.0) H White Blood Count 15.3 K/UL (4.8-10.8) H Red Blood Count 3.55 M/UL (4.70-6.10) L Hemoglobin 9.7 G/DL (14.2-18.0) L Hematocrit 30.1 % (42.0-52.0) L Mean Corpuscular Volume 85 FL (80-99) Mean Corpuscular Hemoglobin 27.4 PG (27.0-31.0) Mean Corpuscular Hemoglobin Concent 32.3 G/DL (32.0-36.0) Red Cell Distribution Width 14.5 % (11.6-14.8) Platelet Count 380 K/UL (150-450) Mean Platelet Volume 7.0 FL (6.5-10.1) Neutrophils (%) (Auto) 73.5 % (45.0-75.0) Lymphocytes (%) (Auto) 11.2 % (20.0-45.0) L Monocytes (%) (Auto) 12.4 % (1.0-10.0) H Eosinophils (%) (Auto) 1.7 % (0.0-3.0) Basophils (%) (Auto) 1.3 % (0.0-2.0) Sodium Level 132 MMOL/L (136-145) L Potassium Level 4.1 MMOL/L (3.5-5.1) Chloride Level 99 MMOL/L (98-107) Carbon Dioxide Level 23 MMOL/L (21-32) Anion Gap 10 mmol/L (5-15) Blood Urea Nitrogen 35 mg/dL (7-18) H Creatinine 1.1 MG/DL (0.55-1.30) Estimat Glomerular Filtration Rate > 60 mL/min (>60) Glucose Level 134 MG/DL (74-106) H Calcium Level 8.6 MG/DL (8.5-10.1) Arterial Blood pH 7.495 (7.350-7.450) Arterial Blood Partial Pressure CO2 22.8 mmHg (35.0-45.0) *L Arterial Blood Partial Pressure O2 167.6 mmHg (75.0-100.0) H Arterial Blood HCO3 17.2 mmol/L (22.0-26.0) *L Arterial Blood Oxygen Saturation 98.8 % (95-100) Arterial Blood Base Excess -4.6 (-2-2) L Ger Test Positive Current Medications Medications (Trade) Dose Ordered Sig/Wanda Route PRN Reason Start Time Stop Time Status Last Admin Dose Admin Acetaminophen (Tylenol) 650 mg Q4H PRN GT Mild Pain/Temp > 100.5 12/15/18 10:45 01/14/19 10:44 12/29/18 15:30 Albuterol/ Ipratropium (Albuterol/ Ipratropium) 3 ml Q4H PRN HHN Shortness of Breath 12/28/18 09:30 01/02/19 09:29 Chlorhexidine Gluconate (Jasmin-Hex 2%) 1 applic DAILY@2000 TOPIC 12/11/18 20:00 01/10/19 19:59 12/29/18 20:14 Dextrose (Dextrose 50%) 25 ml Q30M PRN IV Hypoglycemia 12/08/18 16:15 01/07/19 16:14 Dextrose (Dextrose 50%) 50 ml Q30M PRN IV hypoglycemia 12/08/18 16:15 01/07/19 16:14 Heparin Sodium (Porcine) (Heparin 5000 units/ml) 5,000 units EVERY 12 HOURS SUBQ 12/08/18 21:00 01/07/19 20:59 12/29/18 09:02 Lansoprazole (Prevacid) 30 mg DAILY GT 12/18/18 09:00 01/17/19 08:59 12/29/18 09:00 Levothyroxine Sodium (Synthroid) 75 mcg Q24H GT 12/09/18 06:30 01/08/19 06:29 12/30/18 06:43 Ondansetron HCl (Zofran) 4 mg Q6H PRN IVP Nausea & Vomiting 12/08/18 16:00 01/07/19 15:59 Polyethylene Glycol (Miralax) 17 gm DAILYPRN PRN GT Constipation 12/15/18 10:45 01/07/19 15:59 Sucralfate (Carafate) 1 gm EVERY 6 HOURS GT 12/15/18 18:00 01/07/19 17:59 12/30/18 12:30 Tigecycline 50 mg/ Sodium Chloride 110 ml @ 220 mls/hr EVERY 12 HOURS IVPB 12/23/18 21:00 12/30/18 20:59 12/30/18 08:52 Vancomycin HCl (Vanco rx to dose) 1 ea DAILY PRN MISC PER PHARMACY 12/23/18 09:30 01/22/19 09:29 Vancomycin HCl 500 mg/Dextrose 110 ml @ 110 mls/hr Q12HR@1100,2300 IVPB 12/23/18 11:00 01/01/19 10:59 12/30/18 11:29 Lisy Lai M.D. Dec 30, 2018 13:21
--- NOTE | 2018-12-30 13:21 | NUR ---
PHYSICIAN'S ASSISTANTDIALYSIS BIOMED TECHNICIAN SI:ASPIRATION PNA . PEG SITE INFECTION . ANEMIA VS: BP 129/71, P 96, T 98.2, RR 20, SpO2 100 on VENT AC 16, TV 600, PEEP 5.0, FiO2 35 WBC 15.3, RBC 3.55, Hgb 9.7, Hct 30.1, BUN 35, pCO2 22.8, HCO3 17.2 IS:TIGECYCLINE 50mg 110ml IVPB VANCOMYCIN HCI 110ml SUCRALFATE 1gm SYNTHROID 75mcg SDU STATUS
--- NOTE | 2018-12-30 14:00 | NUR ---
NURSE NOTES: no any distress noted, vital signs stable, bed bath given, repositioned, continue monitoring.
--- NOTE | 2018-12-30 14:41 | NUR ---
*-*INSURANCE *-* UPDATED CLINICALS & REVIEW HAVE BEEN FAXED TO: [facility]: JOSE Soares P- [phone] F- [phone]...REVIEW/CLINICAL
[2018-12-30 16:00] VITALS: BP 124/54
--- NOTE | 2018-12-30 19:06 | NUR ---
HAND-OFF: Report given to SARA HARTLEY, no distress noted.
--- NOTE | 2018-12-30 19:08 | NUR ---
RESPIRATORY NOTE: Received pt. on 840 vent. Vent settings are: A/C rate of 16, Vt 600, FI02 35%, PEEP +5. No respiratory distress noted, pt. sP02 @ 100%. Ambu bag @ BS. Vent plugged on red outlet. Will continue to monitor pt.
--- NOTE | 2018-12-30 19:26 | NUR ---
NURSE NOTES: Received patient from Jeannie Davis RN. Patient in bed with no signs of distress. Patient is obtunded, trach to vent on prescribed vent settings. PICC line on right upper arm is patent. Bed at its lowest position and call light in reach, X3 side rails up with seizure precautions in place. .
[2018-12-30] MEDS: Dyna-Hex 2% Top Sol 2oz TOPIC SCH (19:56)
[2018-12-30 20:00] VITALS: BP 118/65
--- NOTE | 2018-12-30 23:23 | General Progress Note ---
Assessment/Plan Problem List: (1) Severe protein-calorie malnutrition ICD Codes: E43 - Unspecified severe protein-calorie malnutrition SNOMED: 192188247 (2) Feeding by G-tube ICD Codes: Z93.1 - Gastrostomy status SNOMED: 149436481, 902761712 (3) Anemia ICD Codes: D64.9 - Anemia, unspecified SNOMED: 995647806 (4) Chronic respiratory failure ICD Codes: J96.10 - Chronic respiratory failure, unspecified whether with hypoxia or hypercapnia SNOMED: 90614660 (5) Esophagitis ICD Codes: K20.9 - Esophagitis SNOMED: 42984515 (6) Hypothyroidism ICD Codes: E03.9 - Hypothyroidism, unspecified SNOMED: 39422448 (7) Aspiration pneumonia ICD Codes: J69.0 - Pneumonitis due to inhalation of food and vomit SNOMED: 350782652 (8) Leukocytosis ICD Codes: D72.829 - Elevated white blood cell count, unspecified SNOMED: 317741016, 741896332 Qualifiers: Qualified Codes: D72.828 - Other elevated white blood cell count (9) Contracture of multiple joints ICD Codes: M24.50 - Contracture, unspecified joint SNOMED: 69266434, 496351301 Assessment: afebrile gerd pna is improving no sob reviewed chart and labs Subjective ROS Limited/Unobtainable: Yes Allergies: Coded Allergies: NO KNOWN DRUG ALLERGIES (Verified Allergy, Unknown, 09/11/16) Objective Last 24 Hour Vital Signs Date Time Temp Pulse Resp B/P (MAP) Pulse Ox O2 Delivery O2 Flow Rate FiO2 12/30/18 23:19 81 20 35 12/30/18 21:05 87 23 35 12/30/18 20:00 35 12/30/18 20:00 98.8 86 20 118/65 (82) 100 12/30/18 20:00 Mechanical Ventilator 12/30/18 19:29 87 12/30/18 19:07 87 19 35 12/30/18 17:23 91 16 35 12/30/18 16:00 Mechanical Ventilator 12/30/18 16:00 99.0 98 22 124/54 (77) 99 12/30/18 16:00 35 12/30/18 16:00 102 12/30/18 14:47 91 19 35 12/30/18 12:57 96 18 35 12/30/18 12:00 Mechanical Ventilator 12/30/18 12:00 98.2 80 17 122/65 (84) 100 12/30/18 12:00 35 12/30/18 12:00 80 12/30/18 10:37 87 17 35 12/30/18 08:38 87 17 35 12/30/18 08:00 83 12/30/18 08:00 35 12/30/18 08:00 Mechanical Ventilator 12/30/18 08:00 98.2 84 20 129/71 (90) 100 12/30/18 07:17 91 19 35 12/30/18 04:44 90 17 35 12/30/18 04:00 Mechanical Ventilator 12/30/18 04:00 35 12/30/18 04:00 90 12/30/18 04:00 98.5 94 23 140/64 (89) 100 12/30/18 03:30 99 21 35 12/30/18 01:13 88 18 35 12/30/18 00:00 98.4 98 23 127/67 (87) 100 12/30/18 00:00 Mechanical Ventilator 12/30/18 00:00 97 12/29/18 23:24 90 19 35 Intake and Output 12/29/18 12/30/18 19:00 07:00 Intake Total 1815 ml 620 ml Output Total 650 ml Balance 1165 ml 620 ml IV Total 835 ml 220 ml Tube Feeding 720 ml 300 ml Other 260 ml 100 ml Output Urine Total 650 ml Laboratory Tests 12/30/18 04:05: White Blood Count 15.3H, Red Blood Count 3.55L, Hemoglobin 9.7L, Hematocrit 30.1L, Mean Corpuscular Volume 85, Mean Corpuscular Hemoglobin 27.4, Mean Corpuscular Hemoglobin Concent 32.3, Red Cell Distribution Width 14.5, Platelet Count 380, Mean Platelet Volume 7.0, Neutrophils (%) (Auto) 73.5, Lymphocytes (% ) (Auto) 11.2L, Monocytes (%) (Auto) 12.4H, Eosinophils (%) (Auto) 1.7, Basophils (%) (Auto) 1.3, Sodium Level 132L, Potassium Level 4.1, Chloride Level 99, Carbon Dioxide Level 23, Anion Gap 10, Blood Urea Nitrogen 35H, Creatinine 1.1, Estimat Glomerular Filtration Rate > 60, Glucose Level 134H, Calcium Level 8.6 12/30/18 07:40: Arterial Blood pH 7.495H, Arterial Blood Partial Pressure CO2 22.8*L, Arterial Blood Partial Pressure O2 167.6H, Arterial Blood HCO3 17.2*L, Arterial Blood Oxygen Saturation 98.8, Arterial Blood Base Excess -4.6L, Ger Test Positive Height (Feet): 5 Height (Inches): 10.00 Weight (Pounds): 155 Neck: supple Cardiovascular: normal rate Respiratory/Chest: lungs clear Abdomen: soft Sven Johns MD Dec 30, 2018 23:23
[2018-12-31] VITALS (15 sets, daily range): BP systolic 94–139; BP diastolic 49–78
[2018-12-31] MEDS: Sucralfate 1gm tab GT SCH ×5 (00:10→23:31)
[2018-12-31 04:31] LABS: BASOPHILS % (AUTO) 0.9 % (0.0-2.0); EOSINOPHILS % (AUTO) 3.3 % (0.0-3.0); HEMATOCRIT 28.9 % (42.0-52.0); HEMOGLOBIN 9.5 G/DL (14.2-18.0); LYMPHOCYTES % (AUTO) 16.3 % (20.0-45.0); MEAN CORPUSCULAR VOLUME 85 FL (80-99); MONOCYTES % (AUTO) 13.1 % (1.0-10.0); NEUTROPHILS % (AUTO) 66.4 % (45.0-75.0); PLATELET COUNT 251 K/UL (150-450); RED BLOOD COUNT 3.41 M/UL (4.70-6.10); RED CELL DISTRIBUTION WIDTH 14.4 % (11.6-14.8); WHITE BLOOD COUNT 10.6 K/UL (4.8-10.8)
[2018-12-31 05:04] LABS: ALANINE AMINOTRANSFERASE 15 U/L (12-78); ALBUMIN/GLOBULIN RATIO 0.4 (1.0-2.7); ALKALINE PHOSPHATASE 147 U/L (46-116); ANION GAP 10 mmol/L (5-15); ASPARTATE AMINO TRANSFERASE 16 U/L (15-37); BILIRUBIN,TOTAL 0.4 MG/DL (0.2-1.0); BLOOD UREA NITROGEN 35 mg/dL (7-18); CALCIUM 8.4 MG/DL (8.5-10.1); CARBON DIOXIDE 23 MMOL/L (21-32); CHLORIDE 100 MMOL/L (98-107); CREATININE 1.1 MG/DL (0.55-1.30); PHOSPHORUS 4.1 MG/DL (2.5-4.9); POTASSIUM 4.1 MMOL/L (3.5-5.1); SODIUM 132 MMOL/L (136-145)
--- NOTE | 2018-12-31 07:07 | NUR ---
HAND-OFF: Report given to Uday HARTLEY. Patient has no sign of acute distress.
--- NOTE | 2018-12-31 07:46 | NUR ---
NURSE NOTES: received pt in the bed, obtunded, vent dependent, vital signs stable, no co pain, no SOB, skin warm and dry to touch, condom catheter with yellow urine, tolerate GT feeding well, contracted, bed in low position, HOB elevated.
[2018-12-31] MEDS: Tigecycline 50 MG in NS 110 ML IVPB SCH ×2 (08:20→20:49)
[2018-12-31] MEDS: Heparin 5000 units/ml inj SUBQ SCH ×2 (09:00→20:51)
[2018-12-31] MEDS ORDERED: Heparin1,000 units/500ml Premix(Conc:2 units/ml) INJ ONE (10:30)
[2018-12-31] MEDS ORDERED: Omnipaque-300 100ml vial INJ ONE (10:30)
[2018-12-31] MEDS ORDERED: Lidocaine 1% Plain 30 ml INJ ONE (10:30)
--- NOTE | 2018-12-31 10:31 | NUR ---
SEEDLING SORTERCERTIFIED NURSING ASSISTANT INSTRUCTOR SI: ASPIRATION PNA . PEG SITE INFECTION . ANEMIA VS: BP 139/77, P 85, T 97.7, RR 22, SpO2 100 on VENT AC 16, TV 600, PEEP 5.0, FiO2 35 RBC 3.41, Hgb 9.5, Hct 28.9, Na 132, BUN 35 IS: TIGECYCLINE 50mg 110ml IVPB VANCOMYCIN HCI 110ml IVPB PREVACID 30mg SUCRALFATE 1gm SYNTHROID 75mcg HEPARIN SUBQ SDU STATUS
--- NOTE | 2018-12-31 10:45 | NUR ---
*-*INSURANCE *-* UPDATED CLINICALS & REVIEW HAVE BEEN FAXED TO: [facility]: OJSE Soares P- [phone] F- [phone]...REVIEW/CLINICAL
--- NOTE | 2018-12-31 10:49 | Pulmonolgy Critical Care Note ---
Critical Care - Asmt/Plan Problems: (1) Respiratory failure, [id number] (2) Aspiration pneumonia (3) Severe sepsis (4) Anemia (5) Psychosis (6) Hypothyroidism (7) Severe protein-calorie malnutrition (8) Feeding by G-tube Respiratory: monitor respiratory rate, adjust FIO2, CXR Cardiac: continue to monitor HR/BP Renal: F/U I&O, keep IV fluid, check electrolytes Infectious Disease: check cultures, continue antibiotics Gastrointestinal: continue feedings/current rate Endocrine: monitor blood sugar Hematologic: monitor H/H, transfuse if hgb<8.5 Neurologic: PRN Ativan, PRN Morphine, keep patient comfortable Prophylaxis: Protonix, Heparin Time Spent (Minutes): 40 Notes Reviewed: food and beverage server, cardio, 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 with: nurses, consultants, employment evaluator/case managersuperannuation funds manager - Objective Last 24 Hour Vital Signs Date Time Temp Pulse Resp B/P (MAP) Pulse Ox O2 Delivery O2 Flow Rate FiO2 12/31/18 10:44 82 22 35 12/31/18 08:46 80 19 35 12/31/18 08:00 98.1 80 22 123/74 (90) 100 12/31/18 08:00 Mechanical Ventilator 12/31/18 08:00 35 12/31/18 07:44 84 12/31/18 06:54 82 21 35 12/31/18 04:42 80 22 35 12/31/18 04:00 97.7 85 22 139/77 (97) 100 12/31/18 04:00 35 12/31/18 04:00 Mechanical Ventilator 12/31/18 04:00 80 12/31/18 03:28 86 21 35 12/31/18 01:15 85 19 35 12/31/18 00:00 35 12/31/18 00:00 Mechanical Ventilator 12/31/18 00:00 83 12/31/18 00:00 97.9 79 16 114/76 (89) 100 12/30/18 23:19 81 20 35 12/30/18 21:05 87 23 35 12/30/18 20:00 35 12/30/18 20:00 98.8 86 20 118/65 (82) 100 12/30/18 20:00 Mechanical Ventilator 12/30/18 19:29 87 12/30/18 19:07 87 19 35 12/30/18 17:23 91 16 35 12/30/18 16:00 Mechanical Ventilator 12/30/18 16:00 99.0 98 22 124/54 (77) 99 12/30/18 16:00 35 12/30/18 16:00 102 12/30/18 14:47 91 19 35 12/30/18 12:57 96 18 35 12/30/18 12:00 Mechanical Ventilator 12/30/18 12:00 98.2 80 17 122/65 (84) 100 12/30/18 12:00 35 12/30/18 12:00 80 Status: awake Condition: critical Lungs: clear Heart: HR/BP stable Abdomen: soft, active bowel sounds Extremities: no C/C/E, edema Micro: Microbiology Date/Time Source Procedure Growth Status 12/30/18 06:00 Stool Clostridium difficile Toxin Assay - Final Complete Critical Care - Subjective ROS Limited/Unobtainable: No Condition: critical EKG Rhythm: Sinus Rhythm FI02: 35 Vent Support Breath Rate: 16 Vent Support Mode: AC Vent Tidal Volume: 600 Sputum Amount: Small PEEP: 5.0 PIP: 24 Tube Feeding Amount: 0 I&O: Intake and Output 12/30/18 12/31/18 18:59 06:59 Intake Total 620 ml 700 ml Output Total 650 ml Balance -30 ml 700 ml Intake Free Water 100 ml IV Total 220 ml 220 ml Tube Feeding 300 ml 480 ml Output Urine Total 650 ml # Bowel Movements 1 1 Labs: Laboratory Tests Test 12/31/18 03:20 White Blood Count 10.6 K/UL (4.8-10.8) Red Blood Count 3.41 M/UL (4.70-6.10) L Hemoglobin 9.5 G/DL (14.2-18.0) L Hematocrit 28.9 % (42.0-52.0) L Mean Corpuscular Volume 85 FL (80-99) Mean Corpuscular Hemoglobin 27.9 PG (27.0-31.0) Mean Corpuscular Hemoglobin Concent 32.9 G/DL (32.0-36.0) Red Cell Distribution Width 14.4 % (11.6-14.8) Platelet Count 251 K/UL (150-450) Mean Platelet Volume 7.1 FL (6.5-10.1) Neutrophils (%) (Auto) 66.4 % (45.0-75.0) Lymphocytes (%) (Auto) 16.3 % (20.0-45.0) L Monocytes (%) (Auto) 13.1 % (1.0-10.0) H Eosinophils (%) (Auto) 3.3 % (0.0-3.0) H Basophils (%) (Auto) 0.9 % (0.0-2.0) Sodium Level 132 MMOL/L (136-145) L Potassium Level 4.1 MMOL/L (3.5-5.1) Chloride Level 100 MMOL/L (98-107) Carbon Dioxide Level 23 MMOL/L (21-32) Anion Gap 10 mmol/L (5-15) Blood Urea Nitrogen 35 mg/dL (7-18) H Creatinine 1.1 MG/DL (0.55-1.30) Estimat Glomerular Filtration Rate > 60 mL/min (>60) Glucose Level 122 MG/DL (74-106) H Calcium Level 8.4 MG/DL (8.5-10.1) L Phosphorus Level 4.1 MG/DL (2.5-4.9) Magnesium Level 1.8 MG/DL (1.8-2.4) Total Bilirubin 0.4 MG/DL (0.2-1.0) Aspartate Amino Transf (AST/SGOT) 16 U/L (15-37) Alanine Aminotransferase (ALT/SGPT) 15 U/L (12-78) Alkaline Phosphatase 147 U/L (46-116) H Total Protein 6.7 G/DL (6.4-8.2) Albumin 2.0 G/DL (3.4-5.0) L Globulin 4.7 g/dL Albumin/Globulin Ratio 0.4 (1.0-2.7) L Huma Keating MD Dec 31, 2018 10:49
--- NOTE | 2018-12-31 11:13 | Infectious Diseases Prog Note ---
Assessment/Plan Assessment/Plan Abx: IV Vancomycin 12/08- Cefepime 12/08- Assessment: Leukocytosis - improving - PEG site with purulent discharge -Infected obstructive ureteral stone w/ adjacent abscess and moderate L hydronephrosis -12/25 u/a wbc 15-20, nit neg, leuk +3; ucx <10k GNR (work up not done), 50 -60k C. tropicalis -12/24 CT abd/p: : Positive for 18 x 12 mm calculus within the proximal left ureter, approximately 5 cm distal to ureteropelvic junction. This results in moderate left hydronephrosis. Thinning of the cortex suggests that this is likely long- standing Abnormal appearance to the left proximal ureteral and renal pelvic urothelium as well as of the renal parenchyma, consistent with nephritis, pyelitis, and ureter right is. Multiloculated fluid collection with rim enhancement anterior to the proximal ureter adjacent to the stone. This is probably an abscess related to the stone and a pyelitis. Unusually, however, it appears largely anterior to Gerota's fascia rather than within it. Bladder wall thickening, suggests cystitis or chronic bladder outlet obstruction. Given the asymmetry of the bladder wall thickening, the possibility of tumor should also be considered. Nonobstructive bilateral intrarenal calculi, new/increased since prior exam of 01/19/2016. Rectal distention with stool. Mild rectal wall thickening. Findings could indicate fecal impaction with associated stercoral proctitis. However, findings are somewhat similar to the prior 2015 exam and could just be baseline for this patient. Gastrostomy in good position. No apparent complication associated with such. Marked laxity of the central lower abdominal wall musculature resulting in anterior protuberance of the abdomen and contents, without definite james herniation or obstruction. Probable granulomatous calcification within the mediastinum 12/18/18 Cx growing KPC K pna (S Tigecycline), ESBL E. coli (S Tigecycline ) and CoNS -CXR: No acute process. Right basilar atelectasis -Sp cx 12/09/18 E.coli (ESBL), P.a. 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 diff Dysphagia s/p G-tube Anemia. CVA/TIA w/ hemiplegia functional quadriplegia chronic encephalopathy CAD CHF Dm2 GIB s/p multiple EGDs in the past hx of severe esophagitis schizoaffective disease shelter resident multiple admissions VRE colonization Plan: - Cont Vancomcyin and tigecycline #9 for PEG site infection and UTI/abscess and pending UCx -Will fluconazole in the setting of funguria with infected stone and perinephric abscess - f/u cx -For IR Nephrostomy tube placement- I Spoke with Dr Arriaga and abscess is in a risky location further impaired by patient inability to lay sidewards and that he recommended Nephrostomy tube placement for drainage instead as likely cause of abscess is chronic obstructive stone -send bacterial cx -URo f/u: not candidate for surgical intervention given chronicity, comorbidities and loss of function of L kidney - 12/23/18 SP Zosyn #11, inhaled colistin #8 for MDR P.a.for sputum organism and Fluconazole #7 for Yeast it the urine - 12/12 S/P Vancomycin and Cefepime #5 -12/08 SP Levaquin x1 -11/06 SP Amikacin #6 -11/01 SP Meropenem #4 -10/29 SP IV Vanco #2, Cefepime #2 and Tigecycline #1 -10/28 SP LEavquin x1 -10/09 SP Ertapenem #5 - 10/04 SP Meropenem #2 -10/03/18 SP IV Vancomycin #2 and Cefepime #2 -08/09/18 SP Bactrim #7 -08/03 SP Vancomycin and Cefepime #3 -08/01/18 SP Ceftriaxone x1 -Monitor CBC/CMP, temperatures -Peg/trach care -aspiration precautions Will continue to follow along with you. Discussed with RN and Dr Arriaga Subjective Allergies: Coded Allergies: NO KNOWN DRUG ALLERGIES (Verified Allergy, Unknown, 09/11/16) Subjective afebrile leukocytosis resolved Objective Vital Signs Last 24 Hour Vital Signs Date Time Temp Pulse Resp B/P (MAP) Pulse Ox O2 Delivery O2 Flow Rate FiO2 12/31/18 10:44 82 22 35 12/31/18 08:46 80 19 35 12/31/18 08:00 98.1 80 22 123/74 (90) 100 12/31/18 08:00 Mechanical Ventilator 12/31/18 08:00 35 12/31/18 07:44 84 12/31/18 06:54 82 21 35 12/31/18 04:42 80 22 35 12/31/18 04:00 97.7 85 22 139/77 (97) 100 12/31/18 04:00 35 12/31/18 04:00 Mechanical Ventilator 12/31/18 04:00 80 12/31/18 03:28 86 21 35 12/31/18 01:15 85 19 35 12/31/18 00:00 35 12/31/18 00:00 Mechanical Ventilator 12/31/18 00:00 83 12/31/18 00:00 97.9 79 16 114/76 (89) 100 12/30/18 23:19 81 20 35 12/30/18 21:05 87 23 35 12/30/18 20:00 35 12/30/18 20:00 98.8 86 20 118/65 (82) 100 12/30/18 20:00 Mechanical Ventilator 12/30/18 19:29 87 12/30/18 19:07 87 19 35 12/30/18 17:23 91 16 35 12/30/18 16:00 Mechanical Ventilator 12/30/18 16:00 99.0 98 22 124/54 (77) 99 12/30/18 16:00 35 12/30/18 16:00 102 12/30/18 14:47 91 19 35 12/30/18 12:57 96 18 35 12/30/18 12:00 Mechanical Ventilator 12/30/18 12:00 98.2 80 17 122/65 (84) 100 12/30/18 12:00 35 12/30/18 12:00 80 Height (Feet): 5 Height (Inches): 10.00 Weight (Pounds): 155 Objective Status: awake Condition: critical HEENT: atraumatic Neck: full ROM, trach Lungs: rales, rhonchi Heart: HR/BP stable, HR/BP unstable Abdomen: soft, non-tender Extremities: edema Decubiti: location Microbiology Date/Time Source Procedure Growth Status 12/30/18 06:00 Stool Clostridium difficile Toxin Assay - Final Complete Laboratory Tests Test 12/31/18 03:20 White Blood Count 10.6 K/UL (4.8-10.8) Red Blood Count 3.41 M/UL (4.70-6.10) L Hemoglobin 9.5 G/DL (14.2-18.0) L Hematocrit 28.9 % (42.0-52.0) L Mean Corpuscular Volume 85 FL (80-99) Mean Corpuscular Hemoglobin 27.9 PG (27.0-31.0) Mean Corpuscular Hemoglobin Concent 32.9 G/DL (32.0-36.0) Red Cell Distribution Width 14.4 % (11.6-14.8) Platelet Count 251 K/UL (150-450) Mean Platelet Volume 7.1 FL (6.5-10.1) Neutrophils (%) (Auto) 66.4 % (45.0-75.0) Lymphocytes (%) (Auto) 16.3 % (20.0-45.0) L Monocytes (%) (Auto) 13.1 % (1.0-10.0) H Eosinophils (%) (Auto) 3.3 % (0.0-3.0) H Basophils (%) (Auto) 0.9 % (0.0-2.0) Sodium Level 132 MMOL/L (136-145) L Potassium Level 4.1 MMOL/L (3.5-5.1) Chloride Level 100 MMOL/L (98-107) Carbon Dioxide Level 23 MMOL/L (21-32) Anion Gap 10 mmol/L (5-15) Blood Urea Nitrogen 35 mg/dL (7-18) H Creatinine 1.1 MG/DL (0.55-1.30) Estimat Glomerular Filtration Rate > 60 mL/min (>60) Glucose Level 122 MG/DL (74-106) H Calcium Level 8.4 MG/DL (8.5-10.1) L Phosphorus Level 4.1 MG/DL (2.5-4.9) Magnesium Level 1.8 MG/DL (1.8-2.4) Total Bilirubin 0.4 MG/DL (0.2-1.0) Aspartate Amino Transf (AST/SGOT) 16 U/L (15-37) Alanine Aminotransferase (ALT/SGPT) 15 U/L (12-78) Alkaline Phosphatase 147 U/L (46-116) H Total Protein 6.7 G/DL (6.4-8.2) Albumin 2.0 G/DL (3.4-5.0) L Globulin 4.7 g/dL Albumin/Globulin Ratio 0.4 (1.0-2.7) L Current Medications Medications (Trade) Dose Ordered Sig/Wanda Route PRN Reason Start Time Stop Time Status Last Admin Dose Admin Acetaminophen (Tylenol) 650 mg Q4H PRN GT Mild Pain/Temp > 100.5 12/15/18 10:45 01/14/19 10:44 12/29/18 15:30 Albuterol/ Ipratropium (Albuterol/ Ipratropium) 3 ml Q4H PRN HHN Shortness of Breath 12/28/18 09:30 01/02/19 09:29 Chlorhexidine Gluconate (Jasmin-Hex 2%) 1 applic DAILY@2000 TOPIC 12/11/18 20:00 01/10/19 19:59 12/30/18 19:56 Dextrose (Dextrose 50%) 25 ml Q30M PRN IV Hypoglycemia 12/08/18 16:15 01/07/19 16:14 Dextrose (Dextrose 50%) 50 ml Q30M PRN IV hypoglycemia 12/08/18 16:15 01/07/19 16:14 Heparin Sodium (Porcine) (Heparin 5000 units/ml) 5,000 units EVERY 12 HOURS SUBQ 12/08/18 21:00 01/07/19 20:59 12/29/18 09:02 Lansoprazole (Prevacid) 30 mg DAILY GT 12/18/18 09:00 01/17/19 08:59 12/31/18 08:20 Levothyroxine Sodium (Synthroid) 75 mcg Q24H GT 12/09/18 06:30 01/08/19 06:29 12/31/18 06:18 Ondansetron HCl (Zofran) 4 mg Q6H PRN IVP Nausea & Vomiting 12/08/18 16:00 01/07/19 15:59 Polyethylene Glycol (Miralax) 17 gm DAILYPRN PRN GT Constipation 12/15/18 10:45 01/07/19 15:59 Sucralfate (Carafate) 1 gm EVERY 6 HOURS GT 12/15/18 18:00 01/07/19 17:59 12/31/18 06:18 Tigecycline 50 mg/ Sodium Chloride 110 ml @ 220 mls/hr EVERY 12 HOURS IVPB 12/23/18 21:00 01/05/19 23:59 12/31/18 08:20 Vancomycin HCl (Vanco rx to dose) 1 ea DAILY PRN MISC PER PHARMACY 12/23/18 09:30 01/22/19 09:29 Vancomycin HCl 500 mg/Dextrose 110 ml @ 110 mls/hr Q12HR@1100,2300 IVPB 12/23/18 11:00 01/05/19 23:59 12/30/18 22:57 Lisy Lai M.D. Dec 31, 2018 11:13
--- NOTE | 2018-12-31 12:43 | Pre-Procedure Note/Attestation ---
Pre-Procedure Note/Attestation Complete Prior to Procedure Planned Procedure: left Procedure Narrative: nephrostomy Indications for Procedure Pre-Operative Diagnosis: obstructive uropathy Attestation I attest that I discussed the nature of the procedure; its benefits; risks and complications; and alternatives (and the risks and benefits of such alternatives ), prior to the procedure, with the patient (or the patient's legal event representative). I attest that, if there was a reasonable possibility of needing a blood transfusion, the patient (or the patient's legal event representative) was given the [facility] standardized written summary, pursuant to the Mikel Fuad Blood Safety Act ([place] Health and Safety Code # 1645, as amended). I attest that I re-evaluated the patient just prior to the surgery and that there has been no change in the patient's H&P, except as documented below: Emergency consent from Dr. Lai on the chart. Case discussed with Dr. Lai , agree with need for intervention Alberto Angeles MD Dec 31, 2018 12:43
--- NOTE | 2018-12-31 12:45 | Brief Operative Note ---
Immediate Post Operative Note Operative Note Pre-op Diagnosis: obstructive uropathy Procedure: L nephrostomy Post-op Diagnosis: same Surgeon: Rudolph Keller Anesthesia: local Specimen: yes - james pus aspirated from renal pelvis, specimen sent to lab Complications: none Condition: stable Fluids: none Drains: other - 8.5 F pigtail Implant(s) used?: No Alberto Keller MD Dec 31, 2018 12:45
--- NOTE | 2018-12-31 12:50 | NUR ---
NURSE NOTES: pt back from radiology, left nephrostomy to gravity drain, vital signs stable, no respiratory distress, continue monitoring.
[2018-12-31] MEDS: Vancomycin 500mg/D5W 110ml IVPB SCH ×4 (13:02→23:04)
[2018-12-31] MEDS: Fluconazole 100mg tab ORAL SCH (13:03)
[2018-12-31] MEDS ORDERED: Tubing IV Secondary IV ONE (15:43)
[2018-12-31] MEDS ORDERED: NS 275ml ONE (15:43)
--- NOTE | 2018-12-31 16:10 | Diagnostic Imaging Report ---
Indication: Hydronephrosis and suspected pyonephrosis Technique: Prior imaging studies reviewed. Emergency consent from referring physician was on the chart. Procedural timeout performed. Total sterile technique, including sterile gloves and hand hygiene, hat, mask, sterile gown, large sterile drape, and preparation with 2% chlorhexidine utilized. Local anesthesia with 1% lidocaine, both deep and superficial. Under real-time ultrasound guidance, a 21-gauge AccuStick needle was advanced into a posterior lower pole calyx. Small amount of purulent material aspirated. A small amount of contrast was inserted. A guidewire was inserted, followed by insertion of 6 Malaysian AccuStick introducer assembly. The dilator and stiffener were removed. Small amount of contrast injected around the guidewire, confirming satisfactory position of the introducer. 0.035 guidewire introduced, followed by removal of the introducer assembly and placement over the guidewire. 8.5 Malaysian nephrostomy catheter. The pigtail was formed, coiled in an upper pole calyx. Contrast was injected, confirming satisfactory catheter position. The injected contrast was then aspirated. Approximately 30 mL of james pus aspirated. Specimen was sent to the lab for microbial analysis. The patient tolerated the procedure well, without immediate complication. Total fluoroscopy time 113.8 minutes. Total dose area product [id number] mGym2 Number of images: 7 Comparison: Reference made to CT scan dated 12/24/2018 Findings: As above Impression: Successful placement of left nephrostomy catheter, with aspiration of approximately 30 mL of james pus. A specimen was sent to the lab
--- NOTE | 2018-12-31 17:06 | NUR ---
HAND-OFF: Report given to MAURI HARTLEY, CONDITION STABLE.
--- NOTE | 2018-12-31 17:10 | NUR ---
NURSE NOTES: Received pt from Jeannie Frye RN in stable condition with no cardiopulmonary distress noted. Pt is trach to vent, non verbal, Portex 8, AC 16, TV 600, FiO2 35%, Peep 5. GT noted running Osmolite 1.5 at 60 cc/hr. Pt has a condom cath draining yellow urine. L nephrostomy tube noted draining in bag. Skin alterations noted. Pt has a PRASHANTH PICC line. Side rails are up x 2 and padded for seizure precaution. Bed is in lowest position with alarm on, call light within reach. will continue to monitor pt.
--- NOTE | 2018-12-31 19:28 | NUR ---
HAND-OFF: Report given to ODILIA Lemus. Pt in stable condition.
--- NOTE | 2018-12-31 20:00 | NUR ---
NURSE NOTES: pt obtunded trach -vent o2 sat 100 o/o no acute distress noted suction and reposition tolerating tube feeding no residual
--- NOTE | 2018-12-31 20:28 | General Progress Note ---
Assessment/Plan Problem List: (1) Severe protein-calorie malnutrition ICD Codes: E43 - Unspecified severe protein-calorie malnutrition SNOMED: 947887881 (2) Feeding by G-tube ICD Codes: Z93.1 - Gastrostomy status SNOMED: 482906799, 058852350 (3) Anemia ICD Codes: D64.9 - Anemia, unspecified SNOMED: 115587459 (4) Chronic respiratory failure ICD Codes: J96.10 - Chronic respiratory failure, unspecified whether with hypoxia or hypercapnia SNOMED: 34396165 (5) Esophagitis ICD Codes: K20.9 - Esophagitis SNOMED: 96870309 (6) Hypothyroidism ICD Codes: E03.9 - Hypothyroidism, unspecified SNOMED: 13601622 (7) Aspiration pneumonia ICD Codes: J69.0 - Pneumonitis due to inhalation of food and vomit SNOMED: 737445143 (8) Leukocytosis ICD Codes: D72.829 - Elevated white blood cell count, unspecified SNOMED: 041332763, 330621912 Qualifiers: Qualified Codes: D72.828 - Other elevated white blood cell count (9) Contracture of multiple joints ICD Codes: M24.50 - Contracture, unspecified joint SNOMED: 85889374, 438814550 Status: progressing Assessment: sepsis afebrile no change pna is improving no sob reviewed chart and labs Subjective ROS Limited/Unobtainable: Yes Allergies: Coded Allergies: NO KNOWN DRUG ALLERGIES (Verified Allergy, Unknown, 09/11/16) Objective Last 24 Hour Vital Signs Date Time Temp Pulse Resp B/P (MAP) Pulse Ox O2 Delivery O2 Flow Rate FiO2 12/31/18 19:20 88 21 35 12/31/18 17:02 80 16 35 12/31/18 16:00 Mechanical Ventilator 12/31/18 16:00 35 12/31/18 16:00 77 12/31/18 16:00 97.9 79 20 137/75 (95) 100 12/31/18 15:29 74 16 35 12/31/18 13:08 76 26 35 12/31/18 13:00 97.5 87 16 128/78 (95) 100 12/31/18 12:30 88 20 132/69 (90) 100 12/31/18 12:25 87 20 119/59 (79) 100 12/31/18 12:20 82 20 100/53 (69) 100 12/31/18 12:15 84 20 100/60 (73) 100 12/31/18 12:10 84 21 94/66 (75) 100 12/31/18 12:05 86 21 126/63 (84) 100 12/31/18 12:00 Mechanical Ventilator 12/31/18 12:00 35 12/31/18 12:00 83 12/31/18 12:00 84 21 119/77 (91) 100 12/31/18 11:55 86 21 107/68 (81) 100 12/31/18 11:46 84 19 15.0 12/31/18 10:44 82 22 35 12/31/18 08:46 80 19 35 12/31/18 08:00 98.1 80 22 123/74 (90) 100 12/31/18 08:00 Mechanical Ventilator 12/31/18 08:00 35 12/31/18 07:44 84 12/31/18 06:54 82 21 35 12/31/18 04:42 80 22 35 12/31/18 04:00 97.7 85 22 139/77 (97) 100 12/31/18 04:00 35 12/31/18 04:00 Mechanical Ventilator 12/31/18 04:00 80 12/31/18 03:28 86 21 35 12/31/18 01:15 85 19 35 12/31/18 00:00 35 12/31/18 00:00 Mechanical Ventilator 12/31/18 00:00 83 12/31/18 00:00 97.9 79 16 114/76 (89) 100 12/30/18 23:19 81 20 35 12/30/18 21:05 87 23 35 Intake and Output 12/30/18 12/31/18 19:00 07:00 Intake Total 620 ml 700 ml Output Total 650 ml Balance -30 ml 700 ml Intake Free Water 100 ml IV Total 220 ml 220 ml Tube Feeding 300 ml 480 ml Output Urine Total 650 ml # Bowel Movements 1 1 Laboratory Tests 12/31/18 03:20: White Blood Count 10.6, Red Blood Count 3.41L, Hemoglobin 9.5L, Hematocrit 28.9L , Mean Corpuscular Volume 85, Mean Corpuscular Hemoglobin 27.9, Mean Corpuscular Hemoglobin Concent 32.9, Red Cell Distribution Width 14.4, Platelet Count 251, Mean Platelet Volume 7.1, Neutrophils (%) (Auto) 66.4, Lymphocytes (% ) (Auto) 16.3L, Monocytes (%) (Auto) 13.1H, Eosinophils (%) (Auto) 3.3H, Basophils (%) (Auto) 0.9, Sodium Level 132L, Potassium Level 4.1, Chloride Level 100, Carbon Dioxide Level 23, Anion Gap 10, Blood Urea Nitrogen 35H, Creatinine 1.1, Estimat Glomerular Filtration Rate > 60, Glucose Level 122H, Calcium Level 8.4L, Phosphorus Level 4.1, Magnesium Level 1.8, Total Bilirubin 0.4, Aspartate Amino Transf (AST/SGOT) 16, Alanine Aminotransferase (ALT/SGPT) 15, Alkaline Phosphatase 147H, Total Protein 6.7, Albumin 2.0L, Globulin 4.7, Albumin/Globulin Ratio 0.4L Height (Feet): 5 Height (Inches): 10.00 Weight (Pounds): 155 Neck: supple Cardiovascular: normal rate Respiratory/Chest: lungs clear Abdomen: soft Sven Johns MD Dec 31, 2018 20:28
[2018-12-31] MEDS: Dyna-Hex 2% Top Sol 2oz TOPIC SCH (20:49)
[2019-01-01] VITALS: BP 113/56
[2019-01-01 04:00] VITALS: BP 120/67
[2019-01-01 04:53] LABS: BASOPHILS % (AUTO) 0.8 % (0.0-2.0); HEMATOCRIT 28.5 % (42.0-52.0); HEMOGLOBIN 9.4 G/DL (14.2-18.0); LYMPHOCYTES % (AUTO) 19.6 % (20.0-45.0); MEAN CORPUSCULAR VOLUME 84 FL (80-99); MONOCYTES % (AUTO) 10.4 % (1.0-10.0); NEUTROPHILS % (AUTO) 66.2 % (45.0-75.0); PLATELET COUNT 421 K/UL (150-450); RED BLOOD COUNT 3.38 M/UL (4.70-6.10); RED CELL DISTRIBUTION WIDTH 14.7 % (11.6-14.8); WHITE BLOOD COUNT 8.8 K/UL (4.8-10.8)
[2019-01-01 05:36] LABS: ALANINE AMINOTRANSFERASE 19 U/L (12-78); ALBUMIN 2.1 G/DL (3.4-5.0); ALBUMIN/GLOBULIN RATIO 0.5 (1.0-2.7); ALKALINE PHOSPHATASE 156 U/L (46-116); ANION GAP 12 mmol/L (5-15); ASPARTATE AMINO TRANSFERASE 18 U/L (15-37); BILIRUBIN,TOTAL 0.4 MG/DL (0.2-1.0); BLOOD UREA NITROGEN 35 mg/dL (7-18); CALCIUM 8.4 MG/DL (8.5-10.1); CARBON DIOXIDE 20 MMOL/L (21-32); CHLORIDE 99 MMOL/L (98-107); CREATININE 1.1 MG/DL (0.55-1.30); POTASSIUM 4.3 MMOL/L (3.5-5.1); SODIUM 131 MMOL/L (136-145)
[2019-01-01] MEDS: Sucralfate 1gm tab GT SCH ×4 (05:42→23:37)
--- NOTE | 2019-01-01 07:28 | NUR ---
Received pt from ODILIA Lemus in stable condition with no cardiopulmonary distress noted. Pt is asleep in bed, trache to vent, Portex 8 AC 16 TV 600 FiO2 35% Peep 5. GT noted running Osmolite 1.5 AT 60CC/HR. Condom cath noted draining yellow urine. Pt has a left nephrostomy draining urine in drainage bag. Skin alterations noted. PRASHANTH PICC line noted. Bed is in lowest position with side rails padded and up x 3 per seizure precaution. Call light is within reach and bed alarm on. Will continue to monitor pt. Addendum: 01/01/19 at 0815 by Iona Martins RN Amendment: Left nephrostomy draining pink-tinged pus-like drainage.
--- NOTE | 2019-01-01 07:28 | NUR ---
HAND-OFF: Report given to pablito ames using s-bar.
[2019-01-01] MEDS: Fluconazole 100mg tab ORAL SCH (07:57)
[2019-01-01] MEDS: Heparin 5000 units/ml inj SUBQ SCH ×2 (07:58→20:39)
[2019-01-01 08:00] VITALS: BP 123/79
--- NOTE | 2019-01-01 08:00 | NUR ---
NURSE NOTES: Noted wrong medication route listed on eMAR for metronidazole. Will administer via GT route. Will input new orders with correct route. Addendum: 01/01/19 at 1041 by Iona Martins RN Amendment: Noted wrong medication route listed on eMAR for fluconazole. Will administer via GT route. Will input new orders with correct route.
--- NOTE | 2019-01-01 08:05 | NUR ---
RESPIRATORY NOTE: Patient received mechanically ventilated on PB 840 with current ordered vent settings. Patient has trash size 8.0 Portex that is secured with an trach tie and guard. There are bilateral coarse breath sounds noted and small amount of thick clear/white secretions were suctioned without incident. There is an ambu bag available at the bedside and the vent is connected to a red outlet. Vent alarms are functional and audible. Patient appears comfortable at this time. Will continue to monitor.
[2019-01-01] MEDS: Tigecycline 50 MG in NS 110 ML IVPB SCH ×2 (08:12→20:36)
--- NOTE | 2019-01-01 10:00 | NUR ---
NURSE NOTES: Spoke with Dr. Keating regarding pt's sodium and change in PLT levels. No new orders as of this time.
--- NOTE | 2019-01-01 10:05 | Pulmonolgy Critical Care Note ---
Critical Care - Asmt/Plan Problems: (1) Respiratory failure, [id number] (2) Aspiration pneumonia (3) Severe sepsis (4) Anemia (5) Psychosis (6) Hypothyroidism (7) Severe protein-calorie malnutrition (8) Feeding by G-tube Respiratory: monitor respiratory rate Cardiac: continue pressors Renal: F/U I&O, keep IV fluid, check electrolytes Infectious Disease: check cultures Gastrointestinal: continue feedings/current rate Endocrine: monitor blood sugar, check TSH, continue sliding scale insulin Hematologic: monitor H/H, transfuse if hgb<8.5 Neurologic: PRN Ativan, PRN Morphine, keep patient comfortable Affect: PRN ativan Time Spent (Minutes): 40 Notes Reviewed: 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 with: nurses, consultants, human services case managervisual presentation manager - Objective Last 24 Hour Vital Signs Date Time Temp Pulse Resp B/P (MAP) Pulse Ox O2 Delivery O2 Flow Rate FiO2 01/01/19 09:55 77 01/01/19 09:28 76 22 35 01/01/19 08:00 Mechanical Ventilator 01/01/19 08:00 35 01/01/19 08:00 97.9 82 17 123/79 (94) 99 01/01/19 07:58 77 18 35 01/01/19 05:08 82 19 35 01/01/19 04:00 83 01/01/19 04:00 Mechanical Ventilator 01/01/19 04:00 97.8 83 20 120/67 (84) 99 01/01/19 04:00 35 01/01/19 03:09 75 17 35 01/01/19 01:00 Mechanical Ventilator 01/01/19 00:32 76 20 35 01/01/19 00:00 98.1 78 20 113/56 (75) 100 01/01/19 00:00 85 01/01/19 00:00 35 12/31/18 23:19 85 20 35 12/31/18 21:10 74 16 35 12/31/18 20:00 98.4 84 18 120/67 (84) 100 12/31/18 20:00 79 12/31/18 20:00 Mechanical Ventilator 12/31/18 20:00 35 12/31/18 19:20 88 21 35 12/31/18 17:02 80 16 35 12/31/18 16:00 Mechanical Ventilator 4/23/19 16:00 35 12/31/18 16:00 77 12/31/18 16:00 97.9 79 20 137/75 (95) 100 12/31/18 15:29 74 16 35 12/31/18 13:08 76 26 35 12/31/18 13:00 97.5 87 16 128/78 (95) 100 12/31/18 12:30 88 20 132/69 (90) 100 12/31/18 12:25 87 20 119/59 (79) 100 12/31/18 12:20 82 20 100/53 (69) 100 12/31/18 12:15 84 20 100/60 (73) 100 12/31/18 12:10 84 21 94/66 (75) 100 12/31/18 12:05 86 21 126/63 (84) 100 12/31/18 12:00 Mechanical Ventilator 12/31/18 12:00 35 12/31/18 12:00 83 12/31/18 12:00 84 21 119/77 (91) 100 12/31/18 11:55 86 21 107/68 (81) 100 12/31/18 11:46 84 19 15.0 12/31/18 10:44 82 22 35 Status: awake Condition: critical HEENT: atraumatic Lungs: clear Heart: HR/BP stable Abdomen: soft, non-tender Decubiti: location Micro: Microbiology Date/Time Source Procedure Growth Status 12/31/18 12:30 Body Fluid Other Gram Stain - Final Resulted 12/31/18 12:30 Body Fluid Other Body Fluid Culture Pending Resulted 12/30/18 06:00 Stool Clostridium difficile Toxin Assay - Final Complete Critical Care - Subjective ROS Limited/Unobtainable: Yes Interval Events: had nephrostomy tube yesterday, draining pus Condition: critical EKG Rhythm: Sinus Rhythm FI02: 35 Vent Support Breath Rate: 16 Vent Support Mode: AC Vent Tidal Volume: 600 Sputum Amount: Small PEEP: 5.0 PIP: 25 Tube Feeding Amount: 60 I&O: Intake and Output 12/31/18 01/01/19 19:00 07:00 Intake Total 740 ml 1150 ml Output Total 1050 ml 1230 ml Balance -310 ml -80 ml Intake Free Water 100 ml 100 ml IV Total 220 ml 330 ml Tube Feeding 420 ml 720 ml Output Urine Total 1050 ml 1200 ml Other 30 ml # Bowel Movements 4 4 Labs: Laboratory Tests Test 01/01/19 04:05 White Blood Count 8.8 K/UL (4.8-10.8) Red Blood Count 3.38 M/UL (4.70-6.10) L Hemoglobin 9.4 G/DL (14.2-18.0) L Hematocrit 28.5 % (42.0-52.0) L Mean Corpuscular Volume 84 FL (80-99) Mean Corpuscular Hemoglobin 27.7 PG (27.0-31.0) Mean Corpuscular Hemoglobin Concent 32.9 G/DL (32.0-36.0) Red Cell Distribution Width 14.7 % (11.6-14.8) Platelet Count 421 K/UL (150-450) # Mean Platelet Volume 7.2 FL (6.5-10.1) Neutrophils (%) (Auto) 66.2 % (45.0-75.0) Lymphocytes (%) (Auto) 19.6 % (20.0-45.0) L Monocytes (%) (Auto) 10.4 % (1.0-10.0) H Eosinophils (%) (Auto) 3.0 % (0.0-3.0) Basophils (%) (Auto) 0.8 % (0.0-2.0) Erythrocyte Sedimentation Rate 80 MM/HR (0-20) H Sodium Level 131 MMOL/L (136-145) L Potassium Level 4.3 MMOL/L (3.5-5.1) Chloride Level 99 MMOL/L (98-107) Carbon Dioxide Level 20 MMOL/L (21-32) L Anion Gap 12 mmol/L (5-15) Blood Urea Nitrogen 35 mg/dL (7-18) H Creatinine 1.1 MG/DL (0.55-1.30) Estimat Glomerular Filtration Rate > 60 mL/min (>60) Glucose Level 129 MG/DL (74-106) H Calcium Level 8.4 MG/DL (8.5-10.1) L Phosphorus Level 4.0 MG/DL (2.5-4.9) Magnesium Level 1.8 MG/DL (1.8-2.4) Total Bilirubin 0.4 MG/DL (0.2-1.0) Aspartate Amino Transf (AST/SGOT) 18 U/L (15-37) Alanine Aminotransferase (ALT/SGPT) 19 U/L (12-78) Alkaline Phosphatase 156 U/L (46-116) H C-Reactive Protein, Quantitative 8.9 mg/dL (0.00-0.90) H Total Protein 6.7 G/DL (6.4-8.2) Albumin 2.1 G/DL (3.4-5.0) L Globulin 4.6 g/dL Albumin/Globulin Ratio 0.5 (1.0-2.7) L Huma Keating MD Jan 01, 2019 10:05
--- NOTE | 2019-01-01 11:09 | NUR ---
*-*INSURANCE *-* UPDATED CLINICALS [facility] JOSE Soares P- [phone] F- [phone]...REVIEW/CLINICAL
--- NOTE | 2019-01-01 11:59 | NUR ---
NURSE NOTES: Awaiting Harmony from pharmacy.
[2019-01-01 12:00] VITALS: BP 131/71
[2019-01-01] MEDS: Vancomycin 500mg/D5W 110ml IVPB SCH ×4 (12:14→21:58)
--- NOTE | 2019-01-01 12:42 | Infectious Diseases Prog Note ---
Assessment/Plan Assessment/Plan Abx: IV Vancomycin 12/08- Cefepime 12/08- Assessment: Leukocytosis - SP - PEG site with purulent discharge 12/18/18 Cx growing KPC K pna (S Tigecycline), ESBL E. coli (S Tigecycline) and CoNS -Infected obstructive ureteral stone w/ adjacent abscess and moderate L hydronephrosis -12/31 SP Successful placement of left nephrostomy catheter, with aspiration of approximately 30 mL of james pus. A specimen was sent to the lab -CX NTD -12/25 u/a wbc 15-20, nit neg, leuk +3; ucx <10k GNR (work up not done), 50 -60k C. tropicalis -12/24 CT abd/p: : Positive for 18 x 12 mm calculus within the proximal left ureter, approximately 5 cm distal to ureteropelvic junction. This results in moderate left hydronephrosis. Thinning of the cortex suggests that this is likely long- standing Abnormal appearance to the left proximal ureteral and renal pelvic urothelium as well as of the renal parenchyma, consistent with nephritis, pyelitis, and ureter right is. Multiloculated fluid collection with rim enhancement anterior to the proximal ureter adjacent to the stone. This is probably an abscess related to the stone and a pyelitis. Unusually, however, it appears largely anterior to Gerota's fascia rather than within it. Bladder wall thickening, suggests cystitis or chronic bladder outlet obstruction. Given the asymmetry of the bladder wall thickening, the possibility of tumor should also be considered. Nonobstructive bilateral intrarenal calculi, new/increased since prior exam of 01/19/2016. Rectal distention with stool. Mild rectal wall thickening. Findings could indicate fecal impaction with associated stercoral proctitis. However, findings are somewhat similar to the prior 2016 exam and could just be baseline for this patient. Gastrostomy in good position. No apparent complication associated with such. Marked laxity of the central lower abdominal wall musculature resulting in anterior protuberance of the abdomen and contents, without definite james herniation or obstruction. Probable granulomatous calcification within the mediastinum -CXR: No acute process. Right basilar atelectasis -Sp cx 12/09/18 E.coli (ESBL), P.a. 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 diff Dysphagia s/p G-tube Anemia. CVA/TIA w/ hemiplegia functional quadriplegia chronic encephalopathy CAD CHF Dm2 GIB s/p multiple EGDs in the past hx of severe esophagitis schizoaffective disease alf resident multiple admissions VRE colonization Plan: - Cont Vancomcyin and tigecycline #06/23 for PEG site infection and UTI/abscess and pending UCx -based on Neprhostomy tube cx- will re-assess abx and extend duration for abscess -Cont fluconazole #2 in the setting of funguria with infected stone and perinephric abscess - f/u cx -URo f/u: not candidate for surgical intervention given chronicity, comorbidities and loss of function of L kidney - 12/23/18 SP Zosyn #11, inhaled colistin #8 for MDR P.a.for sputum organism and Fluconazole #7 for Yeast it the urine - 12/12 S/P Vancomycin and Cefepime #5 -12/08 SP Levaquin x1 -11/06 SP Amikacin #6 -11/01 SP Meropenem #4 -10/29 SP IV Vanco #2, Cefepime #2 and Tigecycline #1 -10/28 SP LEavquin x1 -10/09 SP Ertapenem #5 - 10/04 SP Meropenem #2 -10/03/18 SP IV Vancomycin #2 and Cefepime #2 -08/09/18 SP Bactrim #7 -08/03 SP Vancomycin and Cefepime #3 -08/01/18 SP Ceftriaxone x1 -Monitor CBC/CMP, temperatures -Peg/trach care -aspiration precautions Will continue to follow along with you. Discussed with RN Subjective Allergies: Coded Allergies: NO KNOWN DRUG ALLERGIES (Verified Allergy, Unknown, 1/2/17) Subjective afebrile no leukocytosis sp L Nephrostomy tube palcemente yesterday with aspiration of james pus Objective Vital Signs Last 24 Hour Vital Signs Date Time Temp Pulse Resp B/P (MAP) Pulse Ox O2 Delivery O2 Flow Rate FiO2 01/01/19 12:00 35 01/01/19 12:00 98.1 83 19 131/71 (91) 99 01/01/19 12:00 Mechanical Ventilator 01/01/19 11:23 81 18 35 01/01/19 09:55 77 01/01/19 09:28 76 22 35 01/01/19 08:00 Mechanical Ventilator 01/01/19 08:00 35 01/01/19 08:00 97.9 82 17 123/79 (94) 99 01/01/19 07:58 77 18 35 01/01/19 05:08 82 19 35 01/01/19 04:00 83 01/01/19 04:00 Mechanical Ventilator 01/01/19 04:00 97.8 83 20 120/67 (84) 99 01/01/19 04:00 35 01/01/19 03:09 75 17 35 01/01/19 01:00 Mechanical Ventilator 01/01/19 00:32 76 20 35 01/01/19 00:00 98.1 78 20 113/56 (75) 100 01/01/19 00:00 85 01/01/19 00:00 35 12/31/18 23:19 85 20 35 12/31/18 21:10 74 16 35 12/31/18 20:00 98.4 84 18 120/67 (84) 100 12/31/18 20:00 79 12/31/18 20:00 Mechanical Ventilator 12/31/18 20:00 35 12/31/18 19:20 88 21 35 12/31/18 17:02 80 16 35 12/31/18 16:00 Mechanical Ventilator 12/31/18 16:00 35 12/31/18 16:00 77 12/31/18 16:00 97.9 79 20 137/75 (95) 100 12/31/18 15:29 74 16 35 12/31/18 13:08 76 26 35 12/31/18 13:00 97.5 87 16 128/78 (95) 100 Height (Feet): 5 Height (Inches): 10.00 Weight (Pounds): 155 Objective Status: awake Condition: critical HEENT: atraumatic Neck: full ROM, trach Lungs: rales, rhonchi Heart: HR/BP stable, HR/BP unstable Abdomen: soft, non-tender Extremities: edema Decubiti: location Microbiology Date/Time Source Procedure Growth Status 12/31/18 12:30 Body Fluid Other Gram Stain - Final Resulted 12/31/18 12:30 Body Fluid Other Body Fluid Culture - Preliminary NO GROWTH AFTER 24 HOURS Resulted 12/30/18 06:00 Stool Clostridium difficile Toxin Assay - Final Complete Laboratory Tests Test 01/01/19 04:05 White Blood Count 8.8 K/UL (4.8-10.8) Red Blood Count 3.38 M/UL (4.70-6.10) L Hemoglobin 9.4 G/DL (14.2-18.0) L Hematocrit 28.5 % (42.0-52.0) L Mean Corpuscular Volume 84 FL (80-99) Mean Corpuscular Hemoglobin 27.7 PG (27.0-31.0) Mean Corpuscular Hemoglobin Concent 32.9 G/DL (32.0-36.0) Red Cell Distribution Width 14.7 % (11.6-14.8) Platelet Count 421 K/UL (150-450) # Mean Platelet Volume 7.2 FL (6.5-10.1) Neutrophils (%) (Auto) 66.2 % (45.0-75.0) Lymphocytes (%) (Auto) 19.6 % (20.0-45.0) L Monocytes (%) (Auto) 10.4 % (1.0-10.0) H Eosinophils (%) (Auto) 3.0 % (0.0-3.0) Basophils (%) (Auto) 0.8 % (0.0-2.0) Erythrocyte Sedimentation Rate 80 MM/HR (0-20) H Sodium Level 131 MMOL/L (136-145) L Potassium Level 4.3 MMOL/L (3.5-5.1) Chloride Level 99 MMOL/L (98-107) Carbon Dioxide Level 20 MMOL/L (21-32) L Anion Gap 12 mmol/L (5-15) Blood Urea Nitrogen 35 mg/dL (7-18) H Creatinine 1.1 MG/DL (0.55-1.30) Estimat Glomerular Filtration Rate > 60 mL/min (>60) Glucose Level 129 MG/DL (74-106) H Calcium Level 8.4 MG/DL (8.5-10.1) L Phosphorus Level 4.0 MG/DL (2.5-4.9) Magnesium Level 1.8 MG/DL (1.8-2.4) Total Bilirubin 0.4 MG/DL (0.2-1.0) Aspartate Amino Transf (AST/SGOT) 18 U/L (15-37) Alanine Aminotransferase (ALT/SGPT) 19 U/L (12-78) Alkaline Phosphatase 156 U/L (46-116) H C-Reactive Protein, Quantitative 8.9 mg/dL (0.00-0.90) H Total Protein 6.7 G/DL (6.4-8.2) Albumin 2.1 G/DL (3.4-5.0) L Globulin 4.6 g/dL Albumin/Globulin Ratio 0.5 (1.0-2.7) L Current Medications Medications (Trade) Dose Ordered Sig/Wanda Route PRN Reason Start Time Stop Time Status Last Admin Dose Admin Acetaminophen (Tylenol) 650 mg Q4H PRN GT Mild Pain/Temp > 100.5 12/15/18 10:45 01/14/19 10:44 12/29/18 15:30 Albuterol/ Ipratropium (Albuterol/ Ipratropium) 3 ml Q4H PRN HHN Shortness of Breath 12/28/18 09:30 01/02/19 09:29 Chlorhexidine Gluconate (Jasmin-Hex 2%) 1 applic DAILY@1999 TOPIC 12/11/18 20:00 01/10/19 19:59 12/31/18 20:49 Dextrose (Dextrose 50%) 25 ml Q30M PRN IV Hypoglycemia 12/08/18 16:15 01/07/19 16:14 Dextrose (Dextrose 50%) 50 ml Q30M PRN IV hypoglycemia 12/08/18 16:15 01/07/19 16:14 Fluconazole (Diflucan) 200 mg DAILY GT 01/02/19 09:00 01/09/19 08:59 Heparin Sodium (Porcine) (Heparin 5000 units/ml) 5,000 units EVERY 12 HOURS SUBQ 12/08/18 21:00 01/07/19 20:59 01/01/19 07:58 Lansoprazole (Prevacid) 30 mg DAILY GT 12/18/18 09:00 01/17/19 08:59 01/01/19 07:58 Levothyroxine Sodium (Synthroid) 75 mcg Q24H GT 12/09/18 06:30 01/08/19 06:29 01/01/19 05:42 Ondansetron HCl (Zofran) 4 mg Q6H PRN IVP Nausea & Vomiting 12/08/18 16:00 01/07/19 15:59 Polyethylene Glycol (Miralax) 17 gm DAILYPRN PRN GT Constipation 12/15/18 10:45 01/07/19 15:59 Sucralfate (Carafate) 1 gm EVERY 6 HOURS GT 12/15/18 18:00 01/07/19 17:59 01/01/19 12:15 Tigecycline 50 mg/ Sodium Chloride 110 ml @ 220 mls/hr EVERY 12 HOURS IVPB 12/23/18 21:00 01/05/19 23:59 01/01/19 08:12 Vancomycin HCl (Vanco rx to dose) 1 ea DAILY PRN MISC PER PHARMACY 12/23/18 09:30 01/22/19 09:29 Vancomycin HCl 500 mg/Dextrose 110 ml @ 110 mls/hr Q12HR@1100,2300 IVPB 12/23/18 11:00 01/05/19 23:59 01/01/19 12:14 Lisy Lai M.D. Jan 01, 2019 12:42
--- NOTE | 2019-01-01 12:59 | NUR ---
NURSE NOTES: Received report ODILIA Monson patient awake head 30 degrees ,with tracheostomy to ventilator,breathing easy,wit G -tube Osmolite 1.5 at 60 ml/hr,,condom catheter,contracted all extermeties,oral care,turned with skin care
--- NOTE | 2019-01-01 13:00 | NUR ---
HAND-OFF: Report given to ODILIA Gabriel. Pt in stable condition.
--- NOTE | 2019-01-01 13:06 | NUR ---
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 98.1 HR 83 RR 19 B/P 131/71 AC 16 TV 600 FIO2 35% PEEP 5 ESR 80 ALK PHOS 186 BUN 35 IS: TYGACIL IV VANCO IV PREVACID PO HEPARIN SUBC STEP DOWN UNIT
--- NOTE | 2019-01-01 13:42 | NUR ---
RD ASSESSMENT & RECOMMENDATIONS SEE CARE ACTIVITY FOR COMPLETE ASSESSMENT DAILY ESTIMATED NEEDS: Needs based on Critical care, underweight, wound, TF SUPERCALENDER OPERATOR HELPER 56.8kg 30-35 kcals/kg 4134-4660 total kcals 1.25-2 g protein/kg 71-114 g total protein 25-30 mL/kg 0500-2559 total fluid mLs NUTRITION DIAGNOSIS: Swallowing difficulty R/T respiratory status as evidenced by pt vent dep via trach, PEG dep. CURRENT TF:Osmolite 1.5 @ 60ml/hr x 22 hrs ENTERAL NUTRITION RECOMMENDATIONS: Osmolite 1.5 @ 60ml/hr x 22 hrs to provide 1320ml, 1980kcal, 83g prot, 1006ml free water * Continue current TF as tolerated * HOLD TF 1h before and 1 after Synthroid administration. * Flush per MD/ HOB over 30 degrees ADDITIONAL RECOMMENDATIONS: * Calibrated bedscale weight for accurate CBW, weekly wt monitoring * Monitor need for TF change and/or accucheck w/ SSI - h/o DM + hyperglycemia * Monitor lytes w/ TF, replete as needed * Wound care: add JOYCELYN UNFLAVORED BID via GT
--- NOTE | 2019-01-01 15:01 | General Progress Note ---
Assessment/Plan Problem List: (1) Severe sepsis ICD Codes: A41.9 - Sepsis, unspecified organism; R65.20 - Severe sepsis without septic shock SNOMED: 66406397 (2) Severe protein-calorie malnutrition ICD Codes: E43 - Unspecified severe protein-calorie malnutrition SNOMED: 354141188 (3) Feeding by G-tube ICD Codes: Z93.1 - Gastrostomy status SNOMED: 848454805, 482785196 (4) Respiratory failure, [id number] ICD Codes: J96.20 - Respiratory failure, [id number] SNOMED: 50733831 (5) Anemia ICD Codes: D64.9 - Anemia, unspecified SNOMED: 361393773 (6) Aspiration pneumonia ICD Codes: J69.0 - Pneumonitis due to inhalation of food and vomit SNOMED: 725026189 (7) Acute renal failure ICD Codes: N17.9 - Acute kidney failure, unspecified SNOMED: 22308632 Status: stable, progressing Assessment/Plan: vent abx cbc bmp am dc plan snf Subjective Constitutional: Reports: weakness Allergies: Coded Allergies: NO KNOWN DRUG ALLERGIES (Verified Allergy, Unknown, 09/11/16) All Systems: reviewed and negative except above Subjective trach vent altered Objective Last 24 Hour Vital Signs Date Time Temp Pulse Resp B/P (MAP) Pulse Ox O2 Delivery O2 Flow Rate FiO2 01/01/19 12:58 76 18 35 01/01/19 12:00 35 01/01/19 12:00 98.1 83 19 131/71 (91) 99 01/01/19 12:00 80 01/01/19 12:00 Mechanical Ventilator 01/01/19 11:23 81 18 35 01/01/19 09:55 77 01/01/19 09:28 76 22 35 01/01/19 08:00 Mechanical Ventilator 01/01/19 08:00 35 01/01/19 08:00 97.9 82 17 123/79 (94) 99 01/01/19 07:58 77 18 35 01/01/19 05:08 82 19 35 01/01/19 04:00 83 01/01/19 04:00 Mechanical Ventilator 01/01/19 04:00 97.8 83 20 120/67 (84) 99 01/01/19 04:00 35 4/24/19 03:09 75 17 35 01/01/19 01:00 Mechanical Ventilator 01/01/19 00:32 76 20 35 01/01/19 00:00 98.1 78 20 113/56 (75) 100 01/01/19 00:00 85 01/01/19 00:00 35 12/31/18 23:19 85 20 35 12/31/18 21:10 74 16 35 12/31/18 20:00 98.4 84 18 120/67 (84) 100 12/31/18 20:00 79 12/31/18 20:00 Mechanical Ventilator 12/31/18 20:00 35 12/31/18 19:20 88 21 35 12/31/18 17:02 80 16 35 12/31/18 16:00 Mechanical Ventilator 12/31/18 16:00 35 12/31/18 16:00 77 12/31/18 16:00 97.9 79 20 137/75 (95) 100 12/31/18 15:29 74 16 35 Intake and Output 12/31/18 01/01/19 19:00 07:00 Intake Total 740 ml 1150 ml Output Total 1050 ml 1230 ml Balance -310 ml -80 ml Intake Free Water 100 ml 100 ml IV Total 220 ml 330 ml Tube Feeding 420 ml 720 ml Output Urine Total 1050 ml 1200 ml Other 30 ml # Bowel Movements 4 4 Laboratory Tests 01/01/19 04:05: White Blood Count 8.8, Red Blood Count 3.38L, Hemoglobin 9.4L, Hematocrit 28.5L , Mean Corpuscular Volume 84, Mean Corpuscular Hemoglobin 27.7, Mean Corpuscular Hemoglobin Concent 32.9, Red Cell Distribution Width 14.7, Platelet Count 421#, Mean Platelet Volume 7.2, Neutrophils (%) (Auto) 66.2, Lymphocytes ( %) (Auto) 19.6L, Monocytes (%) (Auto) 10.4H, Eosinophils (%) (Auto) 3.0, Basophils (%) (Auto) 0.8, Erythrocyte Sedimentation Rate 80H, Sodium Level 131L , Potassium Level 4.3, Chloride Level 99, Carbon Dioxide Level 20L, Anion Gap 12 , Blood Urea Nitrogen 35H, Creatinine 1.1, Estimat Glomerular Filtration Rate > 60, Glucose Level 129H, Calcium Level 8.4L, Phosphorus Level 4.0, Magnesium Level 1.8, Total Bilirubin 0.4, Aspartate Amino Transf (AST/SGOT) 18, Alanine Aminotransferase (ALT/SGPT) 19, Alkaline Phosphatase 156H, C-Reactive Protein, Quantitative 8.9H, Total Protein 6.7, Albumin 2.1L, Globulin 4.6, Albumin/ Globulin Ratio 0.5L Height (Feet): 5 Height (Inches): 10.00 Weight (Pounds): 155 General Appearance: lethargic EENT: normal ENT inspection Neck: normal alignment Cardiovascular: normal peripheral pulses, normal rate, regular rhythm Respiratory/Chest: chest wall non-tender, lungs clear, normal breath sounds Abdomen: normal bowel sounds, non tender, soft Extremities: normal inspection Gato Viveros DO Jan 01, 2019 15:01
[2019-01-01 16:00] VITALS: BP 131/82
--- NOTE | 2019-01-01 18:53 | NUR ---
RESPIRATORY NOTE: Received pt on AC 16, 600VT, 35%, PEEP +5. Pt trach-dependent w/ a cuffed, Portex 8 tube. Pt asleep/disoriented, responds to stimuli. B/S nora. rhonchi, sxn small amounts of thin, frothy, clear-white secretions. Vent plugged into redoutlet, ambubag & spare trach kit at bedside. Pt in no apparent distress at this time. Will continue plan of care.
--- NOTE | 2019-01-01 19:10 | NUR ---
NURSE NOTES: Received report from Nery HARTLEY, pt. in bed obtunded, eyes open, non-verbal, no signs or symptoms of acute cardiac or respiratory distress noted, cardiac monitoring on, pt. appears to be resting comfortably, Suction provided for pt., bed in lowest position and call light within easy reach, bed alarm on, side rails up x's3 and safety brakes engaged, pt. appears to be tolerating current vent settings well- AC 16, TV 600, Fio2 @35%, PEEP 5- NO DISTRESS NOTED at time of assessment, all needs attended to, Osmolite 1.5 running at 60cc/hr- no residual noted- via G-tube, Condom cath intact and draining to gravity, PRASHANTH PICC intact and patent- TKO, side rails padded for seizure precautions- no seizure activity noted, left side nephrostomy procedure done tube draining to gravity, safety measures continued, will continue to monitor pt. and with plan of care.
--- NOTE | 2019-01-01 19:17 | NUR ---
HAND-OFF: Report given to ODILIA Haq,patient stable,no distress.
[2019-01-01 20:00] VITALS: BP 111/67
[2019-01-01] MEDS: Dyna-Hex 2% Top Sol 2oz TOPIC SCH (20:36)
[2019-01-02] VITALS: BP 119/72
[2019-01-02 04:00] VITALS: BP 127/69
[2019-01-02 04:42] LABS: BASOPHILS % (AUTO) 1.1 % (0.0-2.0); EOSINOPHILS % (AUTO) 3.4 % (0.0-3.0); HEMATOCRIT 28.8 % (42.0-52.0); HEMOGLOBIN 9.6 G/DL (14.2-18.0); LYMPHOCYTES % (AUTO) 19.3 % (20.0-45.0); MEAN CORPUSCULAR VOLUME 85 FL (80-99); MONOCYTES % (AUTO) 9.7 % (1.0-10.0); NEUTROPHILS % (AUTO) 66.5 % (45.0-75.0); PLATELET COUNT 446 K/UL (150-450); RED BLOOD COUNT 3.41 M/UL (4.70-6.10); RED CELL DISTRIBUTION WIDTH 14.6 % (11.6-14.8); WHITE BLOOD COUNT 11.4 K/UL (4.8-10.8)
[2019-01-02 05:10] LABS: ALANINE AMINOTRANSFERASE 29 U/L (12-78); ALBUMIN 2.2 G/DL (3.4-5.0); ALBUMIN/GLOBULIN RATIO 0.5 (1.0-2.7); ALKALINE PHOSPHATASE 172 U/L (46-116); ANION GAP 11 mmol/L (5-15); ASPARTATE AMINO TRANSFERASE 23 U/L (15-37); BILIRUBIN,TOTAL 0.3 MG/DL (0.2-1.0); BLOOD UREA NITROGEN 36 mg/dL (7-18); CALCIUM 8.4 MG/DL (8.5-10.1); CARBON DIOXIDE 20 MMOL/L (21-32); CHLORIDE 100 MMOL/L (98-107); PHOSPHORUS 3.6 MG/DL (2.5-4.9); POTASSIUM 4.8 MMOL/L (3.5-5.1); SODIUM 131 MMOL/L (136-145)
[2019-01-02] MEDS: Sucralfate 1gm tab GT SCH ×4 (05:33→22:58)
--- NOTE | 2019-01-02 07:08 | NUR ---
RESPIRATORY NOTE: received pt on current vent settings, trach-dependent with trach size portex 8. trach is secured via trach tie/guard. no redness or skin breakdown around stoma/neck area. vent alarms are set and audible, also plugged into the red outlet. ambu bag at bedside. will cont to monitor.
--- NOTE | 2019-01-02 07:10 | NUR ---
HAND-OFF: Report given to Fely RN, pt. remains stable and no signs of distress noted-aware to f/u with ID doctor regardign elevated WBC's.
--- NOTE | 2019-01-02 07:11 | NUR ---
NURSE NOTES: RECEIVED PATIENT FROM Tamara BELLE RN. PATIENT IS LYING IN BED, RESTING, NONVERBAL. HOOKED TO SOFTWARE IMPLEMENTATION SPECIALIST. TRACH TO VENT. PORTEX 8, VENT SETTINGS AC 16, VT 600, FIO2 35%, PEEP 5. NO SIGNS OF DISTRESS. GT IN PLACE, GTF GLUCERNA 1.5 AT 60ML/HR. WITH CONDOM CATH. NEPHROSTOMY CONNECTED TO BAG, DRAINING YELLOW SECRETION. NOTED SKIN ALTERATION. NOTED R UA PICC, TKO. CALL LIGHT WITHIN REACH. BED AT LOWEST POSITION. PADDED SIDE RAILS. SIDE RAILS UP. WILL CONTINUE TO MONITOR. Addendum: 01/02/19 at 0746 by RONALD NICOLE RN NURSE NOTES: GTF RUNNING 0SMOLITE t 60CC/HR.
[2019-01-02 08:00] VITALS: BP 117/65
[2019-01-02] MEDS: Tigecycline 50 MG in NS 110 ML IVPB SCH ×2 (08:15→20:07)
[2019-01-02] MEDS: Acetaminophen 650mg/20.3ml GT PRN (08:15)
[2019-01-02] MEDS: Fluconazole 100mg tab GT SCH (08:16)
[2019-01-02] MEDS: Heparin 5000 units/ml inj SUBQ SCH ×2 (08:18→20:08)
--- NOTE | 2019-01-02 09:04 | NUR ---
FINANCIAL QUANTITATIVE ANALYSTWEDDING PLANNER SI:RESP FAILURE . PNA . HYDRONEPHROSIS VS: BP 127/69, P 102, T 101.7, RR 25, SpO2 100 on VENT AC 16, TV 600, PEEP 5.0, FiO2 35 WBC 11.4, RBC 3.41, Hgb 9.6, Hct 28.8, Na 131, BUN 36 IS:FLUCONAZOLE 200mg TIGECYCLINE 50mg 110ML IVPB PREVACID 30mg SUCRALFATE 1gm SYNTHROID 75mcg HEPARIN SUBQ SDU STATUS
--- NOTE | 2019-01-02 09:11 | NUR ---
*-*INSURANCE *-* UPDATED CLINICALS AND CLINICALS FROM 12/19- ALSO HAVE BEEN FAXED TO: [facility]: JOSE Soares P- [phone] F- [phone]...REVIEW/CLINICAL
--- NOTE | 2019-01-02 10:41 | Pulmonolgy Critical Care Note ---
Critical Care - Asmt/Plan Problems: (1) Respiratory failure, [id number]-sltudzb (2) Aspiration pneumonia (3) Severe sepsis (4) Anemia (5) Psychosis (6) Hypothyroidism (7) Severe protein-calorie malnutrition (8) Feeding by G-tube Respiratory: monitor respiratory rate, adjust FIO2, CXR Cardiac: continue pressors, continue to monitor HR/BP Renal: F/U I&O, keep IV fluid, check electrolytes Infectious Disease: continue antibiotics Gastrointestinal: continue feedings/current rate Endocrine: monitor blood sugar, check TSH Hematologic: transfuse if hgb<8.5 Neurologic: PRN Ativan, keep patient comfortable Affect: PRN ativan Prophylaxis: Heparin Notes Reviewed: speech/language therapist, 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 with: nurses, consultants, disability case managertraffic incident management manager - Objective Last 24 Hour Vital Signs Date Time Temp Pulse Resp B/P (MAP) Pulse Ox O2 Delivery O2 Flow Rate FiO2 01/02/19 09:11 80 18 35 01/02/19 08:00 Mechanical Ventilator 01/02/19 08:00 81 01/02/19 08:00 101.7 82 19 117/65 (82) 99 01/02/19 08:00 35 01/02/19 07:07 87 22 35 01/02/19 05:04 84 18 35 01/02/19 04:00 Mechanical Ventilator 01/02/19 04:00 97.8 80 18 127/69 (88) 100 01/02/19 04:00 88 01/02/19 04:00 35 01/02/19 03:25 102 25 35 01/02/19 01:20 97 16 35 01/02/19 00:00 35 01/02/19 00:00 98.1 83 17 119/72 (88) 99 01/02/19 00:00 Mechanical Ventilator 01/02/19 00:00 90 01/01/19 23:30 91 25 35 01/01/19 21:02 96 18 35 01/01/19 20:00 35 01/01/19 20:00 96 01/01/19 20:00 97.9 95 18 111/67 (82) 99 01/01/19 20:00 Mechanical Ventilator 01/01/19 18:50 94 18 35 01/01/19 17:16 92 20 35 01/01/19 16:05 Mechanical Ventilator 01/01/19 16:00 99.1 18 131/82 (98) 99 01/01/19 16:00 35 01/01/19 15:49 87 01/01/19 15:29 86 17 35 01/01/19 12:58 76 18 35 01/01/19 12:00 35 01/01/19 12:00 98.1 83 19 131/71 (91) 99 01/01/19 12:00 80 01/01/19 12:00 Mechanical Ventilator 01/01/19 11:23 81 18 35 Status: awake Condition: critical Neck: full ROM Heart: HR/BP stable, HR/BP unstable Abdomen: non-tender, active bowel sounds Extremities: edema Micro: Microbiology Date/Time Source Procedure Growth Status 12/31/18 12:30 Body Fluid Other Gram Stain - Final Resulted 12/31/18 12:30 Body Fluid Other Body Fluid Culture - Preliminary NO GROWTH AFTER 24 HOURS Resulted Critical Care - Subjective ROS Limited/Unobtainable: Yes Interval Events: had a fever of 101 Condition: critical EKG Rhythm: Sinus Rhythm FI02: 35 Vent Support Breath Rate: 16 Vent Support Mode: AC Vent Tidal Volume: 600 Sputum Amount: Moderate PEEP: 5.0 PIP: 24 Tube Feeding Amount: 30 I&O: Intake and Output 01/01/19 01/02/19 19:00 07:00 Intake Total 990 ml 920 ml Output Total 1030 ml 730 ml Balance -40 ml 190 ml Intake Free Water 160 ml 100 ml IV Total 110 ml 220 ml Tube Feeding 720 ml 600 ml Output Urine Total 1000 ml 700 ml Other 30 ml 30 ml # Bowel Movements 1 CXR: no changes Labs: Laboratory Tests Test 01/02/19 03:35 White Blood Count 11.4 K/UL (4.8-10.8) H Red Blood Count 3.41 M/UL (4.70-6.10) L Hemoglobin 9.6 G/DL (14.2-18.0) L Hematocrit 28.8 % (42.0-52.0) L Mean Corpuscular Volume 85 FL (80-99) Mean Corpuscular Hemoglobin 28.1 PG (27.0-31.0) Mean Corpuscular Hemoglobin Concent 33.2 G/DL (32.0-36.0) Red Cell Distribution Width 14.6 % (11.6-14.8) Platelet Count 446 K/UL (150-450) Mean Platelet Volume 6.8 FL (6.5-10.1) Neutrophils (%) (Auto) 66.5 % (45.0-75.0) Lymphocytes (%) (Auto) 19.3 % (20.0-45.0) L Monocytes (%) (Auto) 9.7 % (1.0-10.0) Eosinophils (%) (Auto) 3.4 % (0.0-3.0) H Basophils (%) (Auto) 1.1 % (0.0-2.0) Sodium Level 131 MMOL/L (136-145) L Potassium Level 4.8 MMOL/L (3.5-5.1) Chloride Level 100 MMOL/L (98-107) Carbon Dioxide Level 20 MMOL/L (21-32) L Anion Gap 11 mmol/L (5-15) Blood Urea Nitrogen 36 mg/dL (7-18) H Creatinine 1.0 MG/DL (0.55-1.30) Estimat Glomerular Filtration Rate > 60 mL/min (>60) Glucose Level 121 MG/DL (74-106) H Calcium Level 8.4 MG/DL (8.5-10.1) L Phosphorus Level 3.6 MG/DL (2.5-4.9) Magnesium Level 2.0 MG/DL (1.8-2.4) Total Bilirubin 0.3 MG/DL (0.2-1.0) Aspartate Amino Transf (AST/SGOT) 23 U/L (15-37) Alanine Aminotransferase (ALT/SGPT) 29 U/L (12-78) Alkaline Phosphatase 172 U/L (46-116) H Total Protein 6.5 G/DL (6.4-8.2) Albumin 2.2 G/DL (3.4-5.0) L Globulin 4.3 g/dL Albumin/Globulin Ratio 0.5 (1.0-2.7) L Huma Keating MD Jan 02, 2019 10:41
[2019-01-02] MEDS: Vancomycin 500mg/D5W 110ml IVPB SCH ×4 (10:53→22:16)
--- NOTE | 2019-01-02 11:27 | Infectious Diseases Prog Note ---
Assessment/Plan Assessment/Plan Assessment: Fever- r/o baceremia Leukocytosis - recurrent - PEG site with purulent discharge 12/18/18 Cx growing KPC K pna (S Tigecycline), ESBL E. coli (S Tigecycline) and CoNS -Infected obstructive ureteral stone w/ adjacent abscess and moderate L hydronephrosis -12/31 SP Successful placement of left nephrostomy catheter, with aspiration of approximately 30 mL of james pus. A specimen was sent to the lab -CX NTD -12/25 u/a wbc 15-20, nit neg, leuk +3; ucx <10k GNR (work up not done), 50 -60k C. tropicalis -12/24 CT abd/p: : Positive for 18 x 12 mm calculus within the proximal left ureter, approximately 5 cm distal to ureteropelvic junction. This results in moderate left hydronephrosis. Thinning of the cortex suggests that this is likely long- standing Abnormal appearance to the left proximal ureteral and renal pelvic urothelium as well as of the renal parenchyma, consistent with nephritis, pyelitis, and ureter right is. Multiloculated fluid collection with rim enhancement anterior to the proximal ureter adjacent to the stone. This is probably an abscess related to the stone and a pyelitis. Unusually, however, it appears largely anterior to Gerota's fascia rather than within it. Bladder wall thickening, suggests cystitis or chronic bladder outlet obstruction. Given the asymmetry of the bladder wall thickening, the possibility of tumor should also be considered. Nonobstructive bilateral intrarenal calculi, new/increased since prior exam of 01/19/2016. Rectal distention with stool. Mild rectal wall thickening. Findings could indicate fecal impaction with associated stercoral proctitis. However, findings are somewhat similar to the prior 2015 exam and could just be baseline for this patient. Gastrostomy in good position. No apparent complication associated with such. Marked laxity of the central lower abdominal wall musculature resulting in anterior protuberance of the abdomen and contents, without definite james herniation or obstruction. Probable granulomatous calcification within the mediastinum -CXR: No acute process. Right basilar atelectasis -Sp cx 12/09/18 E.coli (ESBL), P.a. 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 diff Dysphagia s/p G-tube Anemia. CVA/TIA w/ hemiplegia functional quadriplegia chronic encephalopathy CAD CHF Dm2 GIB s/p multiple EGDs in the past hx of severe esophagitis schizoaffective disease care home resident multiple admissions VRE colonization Plan: - Cont Vancomcyin and tigecycline #07/24 for PEG site infection and UTI/abscess and pending UCx -based on Neprhostomy tube cx- will re-assess abx and extend duration for abscess -Cont fluconazole #3 in the setting of funguria with infected stone and perinephric abscess - f/u cx -Bcx x2 -URo f/u: not candidate for surgical intervention given chronicity, comorbidities and loss of function of L kidney - 12/23/18 SP Zosyn #11, inhaled colistin #8 for MDR P.a.for sputum organism and Fluconazole #7 for Yeast it the urine - 12/12 S/P Vancomycin and Cefepime #5 -12/08 SP Levaquin x1 -11/06 SP Amikacin #6 -11/01 SP Meropenem #4 -10/29 SP IV Vanco #2, Cefepime #2 and Tigecycline #1 -10/28 SP LEavquin x1 -10/09 SP Ertapenem #5 - 10/04 SP Meropenem #2 -10/03/18 SP IV Vancomycin #2 and Cefepime #2 -08/09/18 SP Bactrim #7 -08/03 SP Vancomycin and Cefepime #3 -08/01/18 SP Ceftriaxone x1 -Monitor CBC/CMP, temperatures -Peg/trach care -aspiration precautions Will continue to follow along with you. Discussed with RN Subjective Allergies: Coded Allergies: NO KNOWN DRUG ALLERGIES (Verified Allergy, Unknown, 09/11/16) Subjective Tm 101.7 wbc increased Objective Vital Signs Last 24 Hour Vital Signs Date Time Temp Pulse Resp B/P (MAP) Pulse Ox O2 Delivery O2 Flow Rate FiO2 01/02/19 09:11 80 18 35 01/02/19 08:45 97.7 01/02/19 08:00 Mechanical Ventilator 01/02/19 08:00 81 01/02/19 08:00 101.7 82 19 117/65 (82) 99 01/02/19 08:00 35 01/02/19 07:07 87 22 35 01/02/19 05:04 84 18 35 01/02/19 04:00 Mechanical Ventilator 01/02/19 04:00 97.8 80 18 127/69 (88) 100 01/02/19 04:00 88 01/02/19 04:00 35 01/02/19 03:25 102 25 35 01/02/19 01:20 97 16 35 01/02/19 00:00 35 01/02/19 00:00 98.1 83 17 119/72 (88) 99 01/02/19 00:00 Mechanical Ventilator 01/02/19 00:00 90 01/01/19 23:30 91 25 35 01/01/19 21:02 96 18 35 01/01/19 20:00 35 01/01/19 20:00 96 01/01/19 20:00 97.9 95 18 111/67 (82) 99 01/01/19 20:00 Mechanical Ventilator 01/01/19 18:50 94 18 35 01/01/19 17:16 92 20 35 01/01/19 16:05 Mechanical Ventilator 01/01/19 16:00 99.1 18 131/82 (98) 99 01/01/19 16:00 35 01/01/19 15:49 87 01/01/19 15:29 86 17 35 01/01/19 12:58 76 18 35 01/01/19 12:00 35 01/01/19 12:00 98.1 83 19 131/71 (91) 99 01/01/19 12:00 80 01/01/19 12:00 Mechanical Ventilator Height (Feet): 5 Height (Inches): 10.00 Weight (Pounds): 155 Objective Status: awake Condition: critical HEENT: atraumatic Neck: full ROM, trach Lungs: rales, rhonchi Heart: HR/BP stable, HR/BP unstable Abdomen: soft, non-tender Extremities: edema Decubiti: location Microbiology Date/Time Source Procedure Growth Status 12/31/18 12:30 Body Fluid Other Gram Stain - Final Resulted 12/31/18 12:30 Body Fluid Other Body Fluid Culture - Preliminary NO GROWTH AFTER 24 HOURS Resulted Laboratory Tests Test 01/02/19 03:35 White Blood Count 11.4 K/UL (4.8-10.8) H Red Blood Count 3.41 M/UL (4.70-6.10) L Hemoglobin 9.6 G/DL (14.2-18.0) L Hematocrit 28.8 % (42.0-52.0) L Mean Corpuscular Volume 85 FL (80-99) Mean Corpuscular Hemoglobin 28.1 PG (27.0-31.0) Mean Corpuscular Hemoglobin Concent 33.2 G/DL (32.0-36.0) Red Cell Distribution Width 14.6 % (11.6-14.8) Platelet Count 446 K/UL (150-450) Mean Platelet Volume 6.8 FL (6.5-10.1) Neutrophils (%) (Auto) 66.5 % (45.0-75.0) Lymphocytes (%) (Auto) 19.3 % (20.0-45.0) L Monocytes (%) (Auto) 9.7 % (1.0-10.0) Eosinophils (%) (Auto) 3.4 % (0.0-3.0) H Basophils (%) (Auto) 1.1 % (0.0-2.0) Sodium Level 131 MMOL/L (136-145) L Potassium Level 4.8 MMOL/L (3.5-5.1) Chloride Level 100 MMOL/L (98-107) Carbon Dioxide Level 20 MMOL/L (21-32) L Anion Gap 11 mmol/L (5-15) Blood Urea Nitrogen 36 mg/dL (7-18) H Creatinine 1.0 MG/DL (0.55-1.30) Estimat Glomerular Filtration Rate > 60 mL/min (>60) Glucose Level 121 MG/DL (74-106) H Calcium Level 8.4 MG/DL (8.5-10.1) L Phosphorus Level 3.6 MG/DL (2.5-4.9) Magnesium Level 2.0 MG/DL (1.8-2.4) Total Bilirubin 0.3 MG/DL (0.2-1.0) Aspartate Amino Transf (AST/SGOT) 23 U/L (15-37) Alanine Aminotransferase (ALT/SGPT) 29 U/L (12-78) Alkaline Phosphatase 172 U/L (46-116) H Total Protein 6.5 G/DL (6.4-8.2) Albumin 2.2 G/DL (3.4-5.0) L Globulin 4.3 g/dL Albumin/Globulin Ratio 0.5 (1.0-2.7) L Current Medications Medications (Trade) Dose Ordered Sig/Wanda Route PRN Reason Start Time Stop Time Status Last Admin Dose Admin Acetaminophen (Tylenol) 650 mg Q4H PRN GT Mild Pain/Temp > 100.5 12/15/18 10:45 01/14/19 10:44 01/02/19 08:15 Chlorhexidine Gluconate (Jasmin-Hex 2%) 1 applic DAILY@1999 TOPIC 12/11/18 20:00 01/10/19 19:59 01/01/19 20:36 Dextrose (Dextrose 50%) 25 ml Q30M PRN IV Hypoglycemia 12/08/18 16:15 01/07/19 16:14 Dextrose (Dextrose 50%) 50 ml Q30M PRN IV hypoglycemia 12/08/18 16:15 01/07/19 16:14 Fluconazole (Diflucan) 200 mg DAILY GT 01/02/19 09:00 01/09/19 08:59 01/02/19 08:16 Heparin Sodium (Porcine) (Heparin 5000 units/ml) 5,000 units EVERY 12 HOURS SUBQ 12/08/18 21:00 01/07/19 20:59 01/02/19 08:18 Lansoprazole (Prevacid) 30 mg DAILY GT 12/18/18 09:00 01/17/19 08:59 01/02/19 08:15 Levothyroxine Sodium (Synthroid) 75 mcg Q24H GT 12/09/18 06:30 01/08/19 06:29 01/02/19 05:33 Ondansetron HCl (Zofran) 4 mg Q6H PRN IVP Nausea & Vomiting 12/08/18 16:00 01/07/19 15:59 Polyethylene Glycol (Miralax) 17 gm DAILYPRN PRN GT Constipation 12/15/18 10:45 01/07/19 15:59 Sucralfate (Carafate) 1 gm EVERY 6 HOURS GT 12/15/18 18:00 01/07/19 17:59 01/02/19 10:59 Tigecycline 50 mg/ Sodium Chloride 110 ml @ 220 mls/hr EVERY 12 HOURS IVPB 12/23/18 21:00 01/05/19 23:59 01/02/19 08:15 Vancomycin HCl (Vanco rx to dose) 1 ea DAILY PRN MISC PER PHARMACY 12/23/18 09:30 01/22/19 09:29 Vancomycin HCl 500 mg/Dextrose 110 ml @ 110 mls/hr Q12HR@1100,2300 IVPB 12/23/18 11:00 01/05/19 23:59 01/02/19 10:53 Lisy Lai M.D. Jan 02, 2019 11:27
[2019-01-02 12:00] VITALS: BP 105/52
--- NOTE | 2019-01-02 15:23 | General Progress Note ---
Assessment/Plan Problem List: (1) Severe sepsis ICD Codes: A41.9 - Sepsis, unspecified organism; R65.20 - Severe sepsis without septic shock SNOMED: 20089753 (2) Severe protein-calorie malnutrition ICD Codes: E43 - Unspecified severe protein-calorie malnutrition SNOMED: 061680056 (3) Feeding by G-tube ICD Codes: Z93.1 - Gastrostomy status SNOMED: 753809675, 920481567 (4) Respiratory failure, [id number]-etpoljh ICD Codes: J96.20 - Respiratory failure, [id number]-fpdamtz SNOMED: 20687541 (5) Anemia ICD Codes: D64.9 - Anemia, unspecified SNOMED: 503850465 (6) Aspiration pneumonia ICD Codes: J69.0 - Pneumonitis due to inhalation of food and vomit SNOMED: 604791444 (7) Acute renal failure ICD Codes: N17.9 - Acute kidney failure, unspecified SNOMED: 17151003 Status: stable, progressing Assessment/Plan: vent abx cbc bmp am dc plan snf Subjective Constitutional: Reports: weakness Allergies: Coded Allergies: NO KNOWN DRUG ALLERGIES (Verified Allergy, Unknown, 09/11/16) All Systems: reviewed and negative except above Subjective trach vent altered Objective Last 24 Hour Vital Signs Date Time Temp Pulse Resp B/P (MAP) Pulse Ox O2 Delivery O2 Flow Rate FiO2 01/02/19 14:41 88 16 Mechanical Ventilator 35 01/02/19 13:01 72 16 35 01/02/19 12:00 97.2 80 21 105/52 (69) 100 01/02/19 12:00 75 01/02/19 12:00 35 01/02/19 10:55 83 29 35 01/02/19 09:11 80 18 35 01/02/19 08:45 97.7 01/02/19 08:00 Mechanical Ventilator 01/02/19 08:00 81 01/02/19 08:00 101.7 82 19 117/65 (82) 99 01/02/19 08:00 35 01/02/19 07:07 87 22 35 01/02/19 05:04 84 18 35 01/02/19 04:00 Mechanical Ventilator 01/02/19 04:00 97.8 80 18 127/69 (88) 100 01/02/19 04:00 88 01/02/19 04:00 35 01/02/19 03:25 102 25 35 01/02/19 01:20 97 16 35 01/02/19 00:00 35 01/02/19 00:00 98.1 83 17 119/72 (88) 99 01/02/19 00:00 Mechanical Ventilator 01/02/19 00:00 90 01/01/19 23:30 91 25 35 01/01/19 21:02 96 18 35 01/01/19 20:00 35 01/01/19 20:00 96 01/01/19 20:00 97.9 95 18 111/67 (82) 99 01/01/19 20:00 Mechanical Ventilator 01/01/19 18:50 94 18 35 01/01/19 17:16 92 20 35 01/01/19 16:05 Mechanical Ventilator 01/01/19 16:00 99.1 18 131/82 (98) 99 01/01/19 16:00 35 01/01/19 15:49 87 01/01/19 15:29 86 17 35 Intake and Output 01/01/19 01/02/19 19:00 07:00 Intake Total 990 ml 920 ml Output Total 1030 ml 730 ml Balance -40 ml 190 ml Intake Free Water 160 ml 100 ml IV Total 110 ml 220 ml Tube Feeding 720 ml 600 ml Output Urine Total 1000 ml 700 ml Other 30 ml 30 ml # Bowel Movements 1 Laboratory Tests 01/02/19 03:35: White Blood Count 11.4H, Red Blood Count 3.41L, Hemoglobin 9.6L, Hematocrit 28.8L, Mean Corpuscular Volume 85, Mean Corpuscular Hemoglobin 28.1, Mean Corpuscular Hemoglobin Concent 33.2, Red Cell Distribution Width 14.6, Platelet Count 446, Mean Platelet Volume 6.8, Neutrophils (%) (Auto) 66.5, Lymphocytes (% ) (Auto) 19.3L, Monocytes (%) (Auto) 9.7, Eosinophils (%) (Auto) 3.4H, Basophils (%) (Auto) 1.1, Sodium Level 131L, Potassium Level 4.8, Chloride Level 100, Carbon Dioxide Level 20L, Anion Gap 11, Blood Urea Nitrogen 36H, Creatinine 1.0, Estimat Glomerular Filtration Rate > 60, Glucose Level 121H, Calcium Level 8.4L, Phosphorus Level 3.6, Magnesium Level 2.0, Total Bilirubin 0.3, Aspartate Amino Transf (AST/SGOT) 23, Alanine Aminotransferase (ALT/SGPT) 29, Alkaline Phosphatase 172H, Total Protein 6.5, Albumin 2.2L, Globulin 4.3, Albumin/Globulin Ratio 0.5L Height (Feet): 5 Height (Inches): 10.00 Weight (Pounds): 155 General Appearance: lethargic EENT: normal ENT inspection Neck: normal alignment Cardiovascular: normal peripheral pulses, normal rate, regular rhythm Respiratory/Chest: chest wall non-tender, lungs clear, normal breath sounds Abdomen: normal bowel sounds, non tender, soft Extremities: normal inspection Edema: no edema noted Arm (L), no edema noted Arm (R), no edema noted Leg (L), no edema noted Leg (R), no edema noted Pedal (L), no edema noted Pedal (R), no edema noted Generalized Neurologic: motor weakness Skin: normal pigmentation, warm/dry Gato Viveros DO Jan 02, 2019 15:23
[2019-01-02 16:00] VITALS: BP 139/106
--- NOTE | 2019-01-02 16:53 | NUR ---
NURSE NOTES: PATIENT KEPT CLEAN AND DRY. NOTED LOOSE BM. TOLERATED GTF AND VENT SETTINGS. NO SIGN SOF DISTRESS. WILL CONTINUE TO MONITOR.
--- NOTE | 2019-01-02 18:47 | NUR ---
RESPIRATORY NOTE: Received pt on AC 16, 600VT, 35%, PEEP +5. Pt trach-dependent w/ a cuffed, Portex 8 tube. Pt asleep/disoriented. B/S nora. rhonchi, sxn small to moderate amounts of thick/thin, frothy, clear-white to pale-yellow secretions. Vent plugged into red outlet, ambubag & spare trach kit at bedside. Pt in no apparent distress at this time. Will continue plan of care.
--- NOTE | 2019-01-02 19:10 | NUR ---
NURSE NOTES: Received report from Fely RN, pt. in bed obtunded, eyes open, non-verbal, no signs or symptoms of acute cardiac or respiratory distress noted, cardiac monitoring on, pt. appears to be resting comfortably, Suction provided for pt., bed in lowest position and call light within easy reach, bed alarm on, side rails up x's3 and safety brakes engaged, pt. appears to be tolerating current vent settings well- AC 16, TV 600, Fio2 @35%, PEEP 5- NO DISTRESS NOTED at time of assessment, all needs attended to, Osmolite 1.5 running at 60cc/hr- no residual noted upon assessment- via G-tube, Condom cath intact and draining to gravity, PRASHANTH PICC intact and patent- TKO, side rails padded for seizure precautions- no seizure activity noted, left side nephrostomy procedure done tube draining to gravity, safety measures continued, All needs attended to, will continue to monitor pt. and with plan of care.
--- NOTE | 2019-01-02 19:17 | NUR ---
HAND-OFF: Report given to Tamara Montalvo RN.
[2019-01-02 20:00] VITALS: BP 108/66
[2019-01-02] MEDS: Dyna-Hex 2% Top Sol 2oz TOPIC SCH (20:07)
[2019-01-03] VITALS: BP 115/74
[2019-01-03 04:00] VITALS: BP 122/73
[2019-01-03 05:03] LABS: BASOPHILS % (AUTO) 1.6 % (0.0-2.0); EOSINOPHILS % (AUTO) 3.4 % (0.0-3.0); HEMATOCRIT 30.5 % (42.0-52.0); HEMOGLOBIN 9.7 G/DL (14.2-18.0); LYMPHOCYTES % (AUTO) 16.8 % (20.0-45.0); MEAN CORPUSCULAR VOLUME 88 FL (80-99); MONOCYTES % (AUTO) 11.5 % (1.0-10.0); NEUTROPHILS % (AUTO) 66.7 % (45.0-75.0); PLATELET COUNT 424 K/UL (150-450); RED BLOOD COUNT 3.46 M/UL (4.70-6.10); RED CELL DISTRIBUTION WIDTH 15.2 % (11.6-14.8); WHITE BLOOD COUNT 10.9 K/UL (4.8-10.8)
[2019-01-03 05:23] LABS: ANION GAP 13 mmol/L (5-15); BLOOD UREA NITROGEN 34 mg/dL (7-18); CALCIUM 8.6 MG/DL (8.5-10.1); CARBON DIOXIDE 20 MMOL/L (21-32); CHLORIDE 100 MMOL/L (98-107); CREATININE 1.1 MG/DL (0.55-1.30); POTASSIUM 5.3 MMOL/L (3.5-5.1); SODIUM 133 MMOL/L (136-145)
[2019-01-03] MEDS: Sucralfate 1gm tab GT SCH ×4 (05:28→23:28)
--- NOTE | 2019-01-03 06:49 | NUR ---
NURSE NOTES: left msg for Dr. Keating, regarding potassium trending up now 5.3- waiting for call back from doctor.
--- NOTE | 2019-01-03 07:00 | NUR ---
HAND-OFF: Report given to Fely HARTLEY pt.remains stable and no signs of distress noted. Aware to f/u with MD regarding potassium trending up.
--- NOTE | 2019-01-03 07:01 | NUR ---
NURSE NOTES: RECEIVED PATIENT FROM Tamara BELLE RN. PATIENT IS LYING IN BED, ASLEEP, NONVERBAL BUT ABLE TO OPEN EYES. 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 TRACH TO VENT. PORTEX 8, VENT SETTINGS AC 16, VT 600, FIO2 35%, PEEP 5. NO SIGNS OF DISTRESS. GT IN PLACE, GTF OSMOLITE 1.5 AT 60ML/HR. NOTED GT SITE LEAKING. WITH CONDOM CATH. NEPHROSTOMY CONNECTED TO BAG, DRAINING. NOTED R UA PICC, TKO. CALL LIGHT WITHIN REACH. BED AT LOWEST POSITION. PADDED SIDE RAILS. SIDE RAILS UP. WILL CONTINUE TO MONITOR.
[2019-01-03 08:00] VITALS: BP 106/72
[2019-01-03] MEDS: Fluconazole 100mg tab GT SCH (08:43)
[2019-01-03] MEDS: Tigecycline 50 MG in NS 110 ML IVPB SCH ×2 (08:44→20:51)
[2019-01-03] MEDS: Acetaminophen 650mg/20.3ml GT PRN (08:45)
[2019-01-03] MEDS: Heparin 5000 units/ml inj SUBQ SCH ×2 (08:46→20:53)
--- NOTE | 2019-01-03 09:47 | Pulmonolgy Critical Care Note ---
Critical Care - Asmt/Plan Problems: (1) Respiratory failure, [id number]-[id number]-covmjse (2) Aspiration pneumonia (3) Severe sepsis (4) Anemia (5) Psychosis (6) Hypothyroidism (7) Severe protein-calorie malnutrition (8) Feeding by G-tube Respiratory: monitor respiratory rate Cardiac: start pressors, continue to monitor HR/BP Renal: F/U I&O Infectious Disease: check cultures Gastrointestinal: continue feedings/current rate Endocrine: check HgA1C Hematologic: monitor H/H Neurologic: PRN Morphine Prophylaxis: Heparin Notes Reviewed: buttermaker continuous churn, 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 with: nurses, consultants, supportive employment case managerrehab department manager - Objective Last 24 Hour Vital Signs Date Time Temp Pulse Resp B/P (MAP) Pulse Ox O2 Delivery O2 Flow Rate FiO2 01/03/19 09:06 81 18 35 01/03/19 08:00 35 01/03/19 08:00 99.5 82 20 106/72 (83) 99 01/03/19 07:44 83 01/03/19 07:15 83 19 35 01/03/19 05:03 89 17 35 01/03/19 04:00 98.1 81 18 122/73 (89) 100 01/03/19 04:00 99 01/03/19 04:00 35 01/03/19 04:00 Mechanical Ventilator 01/03/19 03:17 106 23 35 01/03/19 01:02 97 25 35 01/03/19 00:00 35 01/03/19 00:00 97.9 79 18 115/74 (88) 100 01/03/19 00:00 105 01/03/19 00:00 Mechanical Ventilator 01/02/19 23:00 105 24 35 01/02/19 20:54 88 24 35 01/02/19 20:00 35 01/02/19 20:00 Mechanical Ventilator 01/02/19 20:00 83 01/02/19 20:00 97.7 88 16 108/66 (80) 94 01/02/19 20:00 35 01/02/19 18:45 85 17 35 01/02/19 16:52 79 16 35 01/02/19 16:00 Mechanical Ventilator 01/02/19 16:00 35 01/02/19 16:00 69 01/02/19 16:00 98.2 79 19 139/106 (117) 100 01/02/19 15:06 84 21 35 01/02/19 14:41 88 16 Mechanical Ventilator 35 01/02/19 13:01 72 16 35 01/02/19 12:00 Mechanical Ventilator 01/02/19 12:00 97.2 80 21 105/52 (69) 100 01/02/19 12:00 75 01/02/19 12:00 35 01/02/19 10:55 83 29 35 Status: awake Condition: grave Lungs: clear Abdomen: non-tender Extremities: edema Micro: Microbiology Date/Time Source Procedure Growth Status 12/31/18 12:30 Body Fluid Other Gram Stain - Final Resulted 12/31/18 12:30 Body Fluid Culture - Preliminary Gram Negative Bacillus 1 Resulted 12/31/18 12:30 Wound AFB Specimen Processing Tissue - Final Resulted 12/31/18 12:30 Wound Acid Fast Bacilli Smear - Final Resulted 12/31/18 12:30 Wound Acid Fast Bacilli Culture Pending Resulted Critical Care - Subjective ROS Limited/Unobtainable: Yes Condition: critical EKG Rhythm: Sinus Rhythm FI02: 35 Vent Support Breath Rate: 16 Vent Support Mode: AC Vent Tidal Volume: 600 Sputum Amount: Moderate PEEP: 5.0 PIP: 24 Tube Feeding Amount: 30 I&O: Intake and Output 01/02/19 01/03/19 18:59 06:59 Intake Total 1220 ml 950 ml Output Total 380 ml 435 ml Balance 840 ml 515 ml Intake Free Water 200 ml 100 ml IV Total 330 ml 220 ml Tube Feeding 690 ml 630 ml Output Urine Total 350 ml 400 ml Other 30 ml 35 ml # Bowel Movements 2 1 CXR: no chage Labs: Laboratory Tests Test 01/03/19 03:15 White Blood Count 10.9 K/UL (4.8-10.8) H Red Blood Count 3.46 M/UL (4.70-6.10) L Hemoglobin 9.7 G/DL (14.2-18.0) L Hematocrit 30.5 % (42.0-52.0) L Mean Corpuscular Volume 88 FL (80-99) Mean Corpuscular Hemoglobin 27.9 PG (27.0-31.0) Mean Corpuscular Hemoglobin Concent 31.8 G/DL (32.0-36.0) L Red Cell Distribution Width 15.2 % (11.6-14.8) H Platelet Count 424 K/UL (150-450) Mean Platelet Volume 5.8 FL (6.5-10.1) L Neutrophils (%) (Auto) 66.7 % (45.0-75.0) Lymphocytes (%) (Auto) 16.8 % (20.0-45.0) L Monocytes (%) (Auto) 11.5 % (1.0-10.0) H Eosinophils (%) (Auto) 3.4 % (0.0-3.0) H Basophils (%) (Auto) 1.6 % (0.0-2.0) Sodium Level 133 MMOL/L (136-145) L Potassium Level 5.3 MMOL/L (3.5-5.1) H Chloride Level 100 MMOL/L (98-107) Carbon Dioxide Level 20 MMOL/L (21-32) L Anion Gap 13 mmol/L (5-15) Blood Urea Nitrogen 34 mg/dL (7-18) H Creatinine 1.1 MG/DL (0.55-1.30) Estimat Glomerular Filtration Rate > 60 mL/min (>60) Glucose Level 106 MG/DL (74-106) Calcium Level 8.6 MG/DL (8.5-10.1) Huma Keating MD Jan 03, 2019 09:47
--- NOTE | 2019-01-03 10:24 | NUR ---
*-*INSURANCE *-* UPDATED CLINICALS HAVE BEEN FAXED TO: [facility]: JOSE Soares P- [phone] F- [phone]...REVIEW/CLINICAL
[2019-01-03] MEDS ORDERED: Sodium Polystyrene Sulfonate 15gm Powder ORAL SCH (11:00)
--- NOTE | 2019-01-03 11:51 | NUR ---
PROPERTY INSPECTORAVIATION SUPPORT EQUIPMENT REPAIRER SI:RESP FAILURE . PNA . HYDRONEPHROSIS VS: BP 106/72, P 82, T 99.5, RR 20, SpO2 99 on VENT AC 16, TV 600, PEEP 5.0, FiO2 35 Na 133, K 5.3, BUN 34, WBC 10.9, RBC 3.46, Hgb 9.7, Hct 30.5 IS:KAYEXALATE 30gm TIGECYCLINE 110ml IVPB PREVACID 30mg GT SUCRALFATE 1gm SYNTHROID 75mcg HEPARIN SUBQ SDU STATUS
[2019-01-03 12:00] VITALS: BP 123/69
--- NOTE | 2019-01-03 12:19 | GI Initial Consult Note ---
History of Present Illness General Date patient seen: Jan 03, 2019 Time patient seen: 12:19 Reason for Hospitalization: Abnormal Labs Referring physician: MIKAYLA BANG Reason for Consultation: GT SITE LEAKAGE Present Illness HPI The patient was sent in for evaluation for alleged elevated white count. No further current history is available. The patient is a trach dependent and has a gastrostomy tube. He also has a Victor catheter and multiple contractures. He was recently admitted to the hospital. GI consulted for GT site leakage. ROS limited. Patient known to us from prior admission with history of severe esophagitis presents today with reported leakage from the G-tube site. The patient endoscopy was performed in July 2018, noted with GERD, diffuse ulcerative esophagitis, peptic esophageal stricture. Labs show leukocytosis and anemia. No active s/sx of N/V/D. Patient is GT dependant. The G-tube site was assessed, noted with a 22 [place]. The surrounding stoma was noted to have a larger circumference than the G- tube itself. It was observed to have G-tube feeding leakage around the site and an open wound. Hemoglobin levels have been stable for the past week. Home Meds Active Scripts Lansoprazole* (LANSOPRAZOLE*) 30 Mg Capsule.dr, 30 MG GT BID for 30 Days, CAP Prov:Mikayla Keating MD 11/08/18 Levothyroxine Sodium* (LEVOTHYROXINE SODIUM*) 75 Mcg Tablet, 75 MCG GT DAILY for 30 Days, TAB Take in the morning on an empty stomach, at least 30 minutes before food. Prov:Mikayla Keating MD 11/08/18 Reported Medications [vitamin c liquid] No Conflict Check, 5 ML GT DAILY 12/08/18 Cran/Vitc/Mannose/Inulin/Brom (UTI-STAT LIQUID) 3,875 Mg/30 Ml Liquid, 3875 MG GT BID, ML 12/08/18 Ipratropium/Albuterol Sulfate (DuoNeb 0.5-3(2.5)mg/3ml) 3 Ml Ampul.neb, 3 ML HHN Q6HR, EA 12/08/18 Na Phos,M-B/Na Phos,Di-Ba* (FLEET ENEMA*) 133 Ml Enema, 133 ML RECTAL QOD PRN for IF DUCOLAX INEFFETIVE 2/6/18 Bisacodyl (DULCOLAX) 10 Mg Supp.rect, 10 MG RC NEEDED PRN for IF MOM INEFFECTIVE, SUPP 06/01/17 Magnesium Hydroxide* (MILK OF MAGNESIA*) 400 Mg/5 Ml Oral.susp, 30 ML GT HS for IF DOUSATE DOESN'T WORK, ML 06/01/17 Docusate Sodium* (DOCUSATE SODIUM*) 100 Mg Capsule, 100 MG GT DAILY for HOLD FOR LBM, CAP 04/14/17 Multivitamin Liquid* (MULTI-DELYN*) 237 Ml Liquid, 15 ML GT DAILY, ML 04/14/17 Sucralfate* (CARAFATE*) 1 Gm Tablet, 1 GM GT FOUR TIMES A DAY, TAB 03/03/16 Acetaminophen (Acetaminophen) 650 Mg/20.3 Ml Soln, 640 MG GT Q4HR PRN for Prn Headache/Temp > 101, ML 0 Refills 01/19/16 Med list reviewed/reconciled: Yes Allergies: Coded Allergies: NO KNOWN DRUG ALLERGIES (Verified Allergy, Unknown, 09/11/16) Patient History PMH Narrative Sepsis probably due to UTI Probable UTI , status post treatment , in setting of recurrent UTI Respiratory failure ,acute on chronic, ventilator dependent Dysphagia, G-tube feeding Severe protein calorie malnutrition Acute kidney injury/acute renal failure-resolved History of C. difficile colitis Anemia of chronic disease -due to underlying chronic medical issues Hypothyroidism Alzheimer's dementia History of upper GI bleeding Social History: Denies: smoking, alcohol use, drug use, other Review of Systems All Other Systems: negative except mentioned in HPI Physical Exam Vital Signs Date Time Temp Pulse Resp B/P (MAP) Pulse Ox O2 Delivery O2 Flow Rate FiO2 12/30/18 07:17 91 19 35 12/30/18 08:00 98.2 129/71 (90) 100 12/30/18 08:00 Mechanical Ventilator 12/31/18 11:46 15.0 Sp02 EP Interpretation: reviewed, normal Labs Laboratory Tests Test 01/03/19 03:15 01/03/19 11:00 White Blood Count 10.9 K/UL (4.8-10.8) H Red Blood Count 3.46 M/UL (4.70-6.10) L Hemoglobin 9.7 G/DL (14.2-18.0) L Hematocrit 30.5 % (42.0-52.0) L Mean Corpuscular Volume 88 FL (80-99) Mean Corpuscular Hemoglobin 27.9 PG (27.0-31.0) Mean Corpuscular Hemoglobin Concent 31.8 G/DL (32.0-36.0) L Red Cell Distribution Width 15.2 % (11.6-14.8) H Platelet Count 424 K/UL (150-450) Mean Platelet Volume 5.8 FL (6.5-10.1) L Neutrophils (%) (Auto) 66.7 % (45.0-75.0) Lymphocytes (%) (Auto) 16.8 % (20.0-45.0) L Monocytes (%) (Auto) 11.5 % (1.0-10.0) H Eosinophils (%) (Auto) 3.4 % (0.0-3.0) H Basophils (%) (Auto) 1.6 % (0.0-2.0) Sodium Level 133 MMOL/L (136-145) L Potassium Level 5.3 MMOL/L (3.5-5.1) H Chloride Level 100 MMOL/L (98-107) Carbon Dioxide Level 20 MMOL/L (21-32) L Anion Gap 13 mmol/L (5-15) Blood Urea Nitrogen 34 mg/dL (7-18) H Creatinine 1.1 MG/DL (0.55-1.30) Estimat Glomerular Filtration Rate > 60 mL/min (>60) Glucose Level 106 MG/DL (74-106) Calcium Level 8.6 MG/DL (8.5-10.1) Vancomycin Level Trough 23.0 ug/mL (5.0-12.0) H General Appearance: well appearing, no apparent distress, alert, thin Head: normocephalic EENT: PERRL/EOMI, normal ENT inspection Neck: supple Respiratory: normal breath sounds, no respiratory distress, other - Tracheostomy dependent Cardiovascular: normal rate Gastrointestinal: normal inspection, non tender, soft, normal bowel sounds, non -distended, gt - See HPI Rectal: deferred Genitourinary: deferred Neurologic: alert, responsive Skin: normal inspection, normal color, no rash, warm/dry, palpation normal, well hydrated Lymphatic: normal inspection, no adenopathy Current Medications Current Medications Medications (Trade) Dose Ordered Sig/Wanda Route PRN Reason Start Time Stop Time Status Last Admin Dose Admin Acetaminophen (Tylenol) 650 mg Q4H PRN GT Mild Pain/Temp > 100.5 12/15/18 10:45 01/14/19 10:44 01/03/19 08:45 Chlorhexidine Gluconate (Jasmin-Hex 2%) 1 applic DAILY@2000 TOPIC 12/11/18 20:00 01/10/19 19:59 01/02/19 20:07 Dextrose (Dextrose 50%) 25 ml Q30M PRN IV Hypoglycemia 12/08/18 16:15 01/07/19 16:14 Dextrose (Dextrose 50%) 50 ml Q30M PRN IV hypoglycemia 12/08/18 16:15 01/07/19 16:14 Fluconazole (Diflucan) 200 mg DAILY GT 01/02/19 09:00 01/09/19 08:59 01/03/19 08:43 Heparin Sodium (Porcine) (Heparin 5000 units/ml) 5,000 units EVERY 12 HOURS SUBQ 12/08/18 21:00 01/07/19 20:59 01/03/19 08:46 Lansoprazole (Prevacid) 30 mg DAILY GT 12/18/18 09:00 01/17/19 08:59 01/03/19 08:51 Levothyroxine Sodium (Synthroid) 75 mcg Q24H GT 12/09/18 06:30 01/08/19 06:29 01/03/19 05:28 Ondansetron HCl (Zofran) 4 mg Q6H PRN IVP Nausea & Vomiting 12/08/18 16:00 01/07/19 15:59 Polyethylene Glycol (Miralax) 17 gm DAILYPRN PRN GT Constipation 12/15/18 10:45 01/07/19 15:59 Sodium Polystyrene Sulfonate (Kayexalate) 30 gm ONCE ORAL 01/03/19 11:00 01/03/19 13:00 01/03/19 10:45 Sucralfate (Carafate) 1 gm EVERY 6 HOURS GT 12/15/18 18:00 01/07/19 17:59 01/03/19 05:28 Tigecycline 50 mg/ Sodium Chloride 110 ml @ 220 mls/hr EVERY 12 HOURS IVPB 12/23/18 21:00 01/05/19 23:59 01/03/19 08:44 Vancomycin HCl (Vanco rx to dose) 1 ea DAILY PRN MISC PER PHARMACY 12/23/18 09:30 01/22/19 09:29 Vancomycin HCl 1 gm/Dextrose 275 ml @ 183.708 mls/hr Q24H IVPB 01/03/19 21:00 01/08/19 20:59 GI: Plan Problems: (1) Severe protein-calorie malnutrition (2) GT SITE LEAKING (3) Anemia (4) Esophagitis (5) Upper GI bleed (6) Malfunction of gastrostomy tube Plan Reinforced the G-tube site dressings. We will consider changing to a larger size [place] tube if G-tube site continues to leak. Obtain a wound care consult to evaluate the open lesion around the G-tube site, consider cauterization with silver nitrate. It was reported that scant amounts of blood was noted around the GT site, will consider gastric lavage if still present and a drop of hemoglobin is observed. Monitor H&H, as needed transfusions PPI twice daily IV PO hydration follow labs Discussed with Dr. Wilson. Thank you for this patient referral, we will follow. The patient was seen and examined at bedside and all new and available data was reviewed in the patients chart. I agree with the above findings, impression and plan. (Patient seen earlier today. Signature stamp does not reflect patient encounter time.). - MD Sangita Cerna,[facility]-[employer]IST[employer] Jan 03, 2019 12:19
--- NOTE | 2019-01-03 13:04 | NUR ---
NURSE NOTES: SEEN AND EXAMINED BY MARCELLUS, SURGICAL CONSULT FOR GT SITE. PATIENT KEPT CLEAN AND DRY. NO SIGNS OF DISTRESS. WILL CONTINUE TO MONITOR.
--- NOTE | 2019-01-03 14:01 | Consultation ---
History of Present Illness General Reason for Hospitalization: Abnormal Labs Present Illness HPI 68M multiple medical comorbidities [facility] resident with trach and peg currently under medical management was noted to have g tube site leak and abnormal wound around g tube site. per report patient will intermittently pull feeding tube with balloon insufflated. he has done this many times. now has larger opening with wound. surgery called to evaluate. patient seen, chart reviewed, patient examined Allergies: Coded Allergies: NO KNOWN DRUG ALLERGIES (Verified Allergy, Unknown, 09/11/16) Medication History Scheduled Cran/Vitc/Mannose/Inulin/Brom (Uti-Stat Liquid), 3,875 MG GT BID, (Reported) Docusate Sodium* (Docusate Sodium*), 100 MG GT DAILY, (Reported) Ipratropium/Albuterol Sulfate (DuoNeb 0.5-3(2.5)mg/3ml), 3 ML HHN Q6HR, ( Reported) Lansoprazole* (Lansoprazole*), 30 MG GT BID Levothyroxine Sodium* (Levothyroxine Sodium*), 75 MCG GT DAILY Magnesium Hydroxide* (Milk Of Magnesia*), 30 ML GT HS, (Reported) Multivitamin Liquid* (Multi-Delyn*), 15 ML GT DAILY, (Reported) Sucralfate* (Carafate*), 1 GM GT FOUR TIMES A DAY, (Reported) [vitamin c liquid], 5 ML GT DAILY, (Reported) Scheduled PRN Acetaminophen (Acetaminophen), 640 MG GT Q4HR PRN for Prn Headache/Temp > 101, ( Reported) Bisacodyl (Dulcolax), 10 MG RC NEEDED PRN for IF MOM INEFFECTIVE, (Reported) Na Phos,M-B/Na Phos,Di-Ba* (Fleet Enema*), 133 ML RECTAL QOD PRN for IF DUCOLAX INEFFETIVE, (Reported) Patient History Limited by: medical condition History Provided By: Medical Record, PMD Healthcare decision maker Resuscitation status Advanced Directive on File No Past Medical/Surgical History Past Medical/Surgical History: (1) Severe sepsis (2) Leukocytosis (3) Elevated lactic acid level (4) Right lower lobe pneumonia (5) Contracture of multiple joints (6) GT SITE LEAKING (7) Psychosis (8) Severe protein-calorie malnutrition (9) Feeding by G-tube (10) Respiratory failure, [id number] (11) Anemia (12) Chronic respiratory failure (13) Septic shock (14) Esophagitis (15) Hypothyroidism (16) Aspiration pneumonia (17) Pyelonephritis (18) C. difficile colitis (19) Malfunction of gastrostomy tube (20) Acute encephalopathy (21) MDR Acinetobacter baumannii infection (22) Severe erosive esophagitis (23) Upper GI bleed (24) Alzheimer's dementia (25) Hypokalemia (26) Acute renal failure Review of Systems Review of Symptoms unable to obtain given medical condition Physical Exam Physical Exam General appearance: alert, cooperative, no distress, appears stated age Head: Normocephalic, without obvious abnormality, atraumatic Eyes: conjunctivae/corneas clear. PERRL, EOM's intact. Fundi benign Throat: Lips, mucosa, and tongue normal. Teeth and gums normal Neck: supple, symmetrical, trachea midline, no adenopathy, thyroid: not enlarged, symmetric, no tenderness/mass/nodules, no carotid bruit and no JVD Lungs: clear to auscultation bilaterally Heart: regular rate and rhythm, S1, S2 normal, no murmur, click, rub or gallop Abdomen: soft, non-tender. Bowel sounds normal. No masses, no organomegaly feeding tube site with larger abnormal wound. Extremities: extremities normal, atraumatic, no cyanosis or edema. contracted Pulses: 2+ and symmetric Skin: Skin color, texture, turgor normal. No rashes or lesions Neurologic: Grossly normal Last 24 Hour Vital Signs Date Time Temp Pulse Resp B/P (MAP) Pulse Ox O2 Delivery O2 Flow Rate FiO2 01/03/19 13:41 87 18 35 01/03/19 12:22 91 01/03/19 12:00 Mechanical Ventilator 01/03/19 12:00 98.2 77 18 123/69 (87) 100 01/03/19 12:00 35 01/03/19 11:05 84 18 35 01/03/19 09:15 98.7 01/03/19 09:06 81 18 35 01/03/19 08:00 Mechanical Ventilator 01/03/19 08:00 35 01/03/19 08:00 99.5 82 20 106/72 (83) 99 01/03/19 07:44 83 01/03/19 07:15 83 19 35 4/26/19 05:03 89 17 35 01/03/19 04:00 98.1 81 18 122/73 (89) 100 01/03/19 04:00 99 01/03/19 04:00 35 01/03/19 04:00 Mechanical Ventilator 01/03/19 03:17 106 23 35 01/03/19 01:02 97 25 35 01/03/19 00:00 35 01/03/19 00:00 97.9 79 18 115/74 (88) 100 01/03/19 00:00 105 01/03/19 00:00 Mechanical Ventilator 01/02/19 23:00 105 24 35 01/02/19 20:54 88 24 35 01/02/19 20:00 35 01/02/19 20:00 Mechanical Ventilator 01/02/19 20:00 83 01/02/19 20:00 97.7 88 16 108/66 (80) 94 01/02/19 20:00 35 01/02/19 18:45 85 17 35 01/02/19 16:52 79 16 35 01/02/19 16:00 Mechanical Ventilator 01/02/19 16:00 35 01/02/19 16:00 69 01/02/19 16:00 98.2 79 19 139/106 (117) 100 01/02/19 15:06 84 21 35 01/02/19 14:41 88 16 Mechanical Ventilator 35 Intake and Output 01/02/19 01/03/19 19:00 07:00 Intake Total 1250 ml 920 ml Output Total 380 ml 435 ml Balance 870 ml 485 ml Intake Free Water 200 ml 100 ml IV Total 330 ml 220 ml Tube Feeding 720 ml 600 ml Output Urine Total 350 ml 400 ml Other 30 ml 35 ml # Bowel Movements 2 1 Laboratory Tests Test 01/03/19 03:15 01/03/19 11:00 White Blood Count 10.9 K/UL (4.8-10.8) H Red Blood Count 3.46 M/UL (4.70-6.10) L Hemoglobin 9.7 G/DL (14.2-18.0) L Hematocrit 30.5 % (42.0-52.0) L Mean Corpuscular Volume 88 FL (80-99) Mean Corpuscular Hemoglobin 27.9 PG (27.0-31.0) Mean Corpuscular Hemoglobin Concent 31.8 G/DL (32.0-36.0) L Red Cell Distribution Width 15.2 % (11.6-14.8) H Platelet Count 424 K/UL (150-450) Mean Platelet Volume 5.8 FL (6.5-10.1) L Neutrophils (%) (Auto) 66.7 % (45.0-75.0) Lymphocytes (%) (Auto) 16.8 % (20.0-45.0) L Monocytes (%) (Auto) 11.5 % (1.0-10.0) H Eosinophils (%) (Auto) 3.4 % (0.0-3.0) H Basophils (%) (Auto) 1.6 % (0.0-2.0) Sodium Level 133 MMOL/L (136-145) L Potassium Level 5.3 MMOL/L (3.5-5.1) H Chloride Level 100 MMOL/L (98-107) Carbon Dioxide Level 20 MMOL/L (21-32) L Anion Gap 13 mmol/L (5-15) Blood Urea Nitrogen 34 mg/dL (7-18) H Creatinine 1.1 MG/DL (0.55-1.30) Estimat Glomerular Filtration Rate > 60 mL/min (>60) Glucose Level 106 MG/DL (74-106) Calcium Level 8.6 MG/DL (8.5-10.1) Vancomycin Level Trough 23.0 ug/mL (5.0-12.0) H Height (Feet): 5 Height (Inches): 10.00 Weight (Pounds): 155 Medications Current Medications Medications (Trade) Dose Ordered Sig/Wanda Route PRN Reason Start Time Stop Time Status Last Admin Dose Admin Acetaminophen (Tylenol) 650 mg Q4H PRN GT Mild Pain/Temp > 100.5 12/15/18 10:45 01/14/19 10:44 01/03/19 08:45 Chlorhexidine Gluconate (Jasmin-Hex 2%) 1 applic DAILY@1999 TOPIC 12/11/18 20:00 01/10/19 19:59 01/02/19 20:07 Dextrose (Dextrose 50%) 25 ml Q30M PRN IV Hypoglycemia 12/08/18 16:15 01/07/19 16:14 Dextrose (Dextrose 50%) 50 ml Q30M PRN IV hypoglycemia 12/08/18 16:15 01/07/19 16:14 Fluconazole (Diflucan) 200 mg DAILY GT 01/02/19 09:00 01/09/19 08:59 01/03/19 08:43 Heparin Sodium (Porcine) (Heparin 5000 units/ml) 5,000 units EVERY 12 HOURS SUBQ 12/08/18 21:00 01/07/19 20:59 01/03/19 08:46 Lansoprazole (Prevacid) 30 mg DAILY GT 12/18/18 09:00 01/17/19 08:59 01/03/19 08:51 Levothyroxine Sodium (Synthroid) 75 mcg Q24H GT 12/09/18 06:30 01/08/19 06:29 01/03/19 05:28 Ondansetron HCl (Zofran) 4 mg Q6H PRN IVP Nausea & Vomiting 12/08/18 16:00 01/07/19 15:59 Polyethylene Glycol (Miralax) 17 gm DAILYPRN PRN GT Constipation 12/15/18 10:45 01/07/19 15:59 Sucralfate (Carafate) 1 gm EVERY 6 HOURS GT 12/15/18 18:00 01/07/19 17:59 01/03/19 12:42 Tigecycline 50 mg/ Sodium Chloride 110 ml @ 220 mls/hr EVERY 12 HOURS IVPB 12/23/18 21:00 01/05/19 23:59 01/03/19 08:44 Vancomycin HCl (Vanco rx to dose) 1 ea DAILY PRN MISC PER PHARMACY 12/23/18 09:30 01/22/19 09:29 Vancomycin HCl 1 gm/Dextrose 275 ml @ 183.708 mls/hr Q24H IVPB 01/03/19 21:00 01/08/19 20:59 Assessment/Plan Problem List: (1) Severe sepsis ICD Codes: A41.9 - Sepsis, unspecified organism; R65.20 - Severe sepsis without septic shock SNOMED: 61544933 (2) Leukocytosis ICD Codes: D72.829 - Elevated white blood cell count, unspecified SNOMED: 372099955, 831121892 Qualifiers: Qualified Codes: D72.828 - Other elevated white blood cell count (3) Elevated lactic acid level ICD Codes: R79.89 - Other specified abnormal findings of blood chemistry SNOMED: 9852668 (4) Right lower lobe pneumonia ICD Codes: J18.1 - Lobar pneumonia, unspecified organism SNOMED: 141553757, 840447648 Qualifiers: Qualified Codes: J18.1 - Lobar pneumonia, unspecified organism (5) Contracture of multiple joints ICD Codes: M24.50 - Contracture, unspecified joint SNOMED: 75105345, 666347083 (6) GT SITE LEAKING (7) Psychosis ICD Codes: F29 - Psychosis SNOMED: 65794481 (8) Severe protein-calorie malnutrition ICD Codes: E43 - Unspecified severe protein-calorie malnutrition SNOMED: 278528396 (9) Feeding by G-tube ICD Codes: Z93.1 - Gastrostomy status SNOMED: 197096317, 397832887 (10) Respiratory failure, jzfvt-ar-fucfmpe ICD Codes: J96.20 - Respiratory failure, vyhoh-zp-sydhlnd SNOMED: 80960752 (11) Anemia ICD Codes: D64.9 - Anemia, unspecified SNOMED: 892910085 (12) Chronic respiratory failure ICD Codes: J96.10 - Chronic respiratory failure, unspecified whether with hypoxia or hypercapnia SNOMED: 96212939 (13) Septic shock ICD Codes: A41.9 - Sepsis, unspecified organism; R65.21 - Severe sepsis with septic shock SNOMED: 69171493 (14) Esophagitis ICD Codes: K20.9 - Esophagitis SNOMED: 97432299 (15) Hypothyroidism ICD Codes: E03.9 - Hypothyroidism, unspecified SNOMED: 72800781 (16) Aspiration pneumonia ICD Codes: J69.0 - Pneumonitis due to inhalation of food and vomit SNOMED: 387913282 (17) Pyelonephritis ICD Codes: N12 - Tubulo-interstitial nephritis, not specified as acute or chronic SNOMED: 67564671 (18) C. difficile colitis ICD Codes: A04.7 - Enterocolitis due to Clostridium difficile SNOMED: 491478918 (19) Malfunction of gastrostomy tube Assessment & Plan: patient pulls tube intermittently now has larger wound / tube site now has abnormal wound around tube from leaking GI will monitor tube and leak for now will apply silver nitrate to wound to allow for healing will follow wound to ensure healing may need large feeding tube thank you ICD Codes: K94.23 - Gastrostomy malfunction SNOMED: 149590443 (20) Acute encephalopathy ICD Codes: G93.40 - Encephalopathy, unspecified SNOMED: 4657915 (21) MDR Acinetobacter baumannii infection ICD Codes: A49.9 - Bacterial infection, unspecified; Z16.24 - Resistance to multiple antibiotics SNOMED: 750285192 (22) Severe erosive esophagitis (23) Upper GI bleed ICD Codes: K92.2 - Upper gastrointestinal hemorrhage SNOMED: 57392470 (24) Alzheimer's dementia ICD Codes: G30.9 - Alzheimer's disease, unspecified SNOMED: 64907966 (25) Hypokalemia ICD Codes: E87.6 - Hypokalemia SNOMED: 73167291 (26) Acute renal failure ICD Codes: N17.9 - Acute kidney failure, unspecified SNOMED: 31000849 Quirino Bernard Jan 03, 2019 14:01
[2019-01-03] MEDS ORDERED: Silver Nitrate Stick TOPIC ONE (14:15)
--- NOTE | 2019-01-03 14:19 | General Progress Note ---
Assessment/Plan Problem List: (1) Severe sepsis ICD Codes: A41.9 - Sepsis, unspecified organism; R65.20 - Severe sepsis without septic shock SNOMED: 64968696 (2) Severe protein-calorie malnutrition ICD Codes: E43 - Unspecified severe protein-calorie malnutrition SNOMED: 649609257 (3) Feeding by G-tube ICD Codes: Z93.1 - Gastrostomy status SNOMED: 417250006, 721557848 (4) Respiratory failure, poouh-bd-ealmuyl ICD Codes: J96.20 - Respiratory failure, [id number] SNOMED: 20179943 (5) Anemia ICD Codes: D64.9 - Anemia, unspecified SNOMED: 079098303 (6) Aspiration pneumonia ICD Codes: J69.0 - Pneumonitis due to inhalation of food and vomit SNOMED: 344201177 (7) Acute renal failure ICD Codes: N17.9 - Acute kidney failure, unspecified SNOMED: 05330588 Status: stable, progressing Assessment/Plan: vent abx cbc bmp am dc plan snf Subjective Constitutional: Reports: weakness Allergies: Coded Allergies: NO KNOWN DRUG ALLERGIES (Verified Allergy, Unknown, 09/11/16) All Systems: reviewed and negative except above Subjective trach vent altered Objective Last 24 Hour Vital Signs Date Time Temp Pulse Resp B/P (MAP) Pulse Ox O2 Delivery O2 Flow Rate FiO2 01/03/19 13:41 87 18 35 01/03/19 12:22 91 01/03/19 12:00 Mechanical Ventilator 01/03/19 12:00 98.2 77 18 123/69 (87) 100 01/03/19 12:00 35 01/03/19 11:05 84 18 35 01/03/19 09:15 98.7 01/03/19 09:06 81 18 35 01/03/19 08:00 Mechanical Ventilator 01/03/19 08:00 35 01/03/19 08:00 99.5 82 20 106/72 (83) 99 01/03/19 07:44 83 01/03/19 07:15 83 19 35 01/03/19 05:03 89 17 35 01/03/19 04:00 98.1 81 18 122/73 (89) 100 01/03/19 04:00 99 01/03/19 04:00 35 01/03/19 04:00 Mechanical Ventilator 01/03/19 03:17 106 23 35 01/03/19 01:02 97 25 35 01/03/19 00:00 35 01/03/19 00:00 97.9 79 18 115/74 (88) 100 01/03/19 00:00 105 01/03/19 00:00 Mechanical Ventilator 01/02/19 23:00 105 24 35 01/02/19 20:54 88 24 35 01/02/19 20:00 35 01/02/19 20:00 Mechanical Ventilator 01/02/19 20:00 83 01/02/19 20:00 97.7 88 16 108/66 (80) 94 01/02/19 20:00 35 01/02/19 18:45 85 17 35 01/02/19 16:52 79 16 35 01/02/19 16:00 Mechanical Ventilator 01/02/19 16:00 35 01/02/19 16:00 69 01/02/19 16:00 98.2 79 19 139/106 (117) 100 01/02/19 15:06 84 21 35 01/02/19 14:41 88 16 Mechanical Ventilator 35 Intake and Output 01/02/19 01/03/19 19:00 07:00 Intake Total 1250 ml 920 ml Output Total 380 ml 435 ml Balance 870 ml 485 ml Intake Free Water 200 ml 100 ml IV Total 330 ml 220 ml Tube Feeding 720 ml 600 ml Output Urine Total 350 ml 400 ml Other 30 ml 35 ml # Bowel Movements 2 1 Laboratory Tests 01/03/19 03:15: White Blood Count 10.9H, Red Blood Count 3.46L, Hemoglobin 9.7L, Hematocrit 30.5L, Mean Corpuscular Volume 88, Mean Corpuscular Hemoglobin 27.9, Mean Corpuscular Hemoglobin Concent 31.8L, Red Cell Distribution Width 15.2H, Platelet Count 424, Mean Platelet Volume 5.8L, Neutrophils (%) (Auto) 66.7, Lymphocytes (%) (Auto) 16.8L, Monocytes (%) (Auto) 11.5H, Eosinophils (%) (Auto ) 3.4H, Basophils (%) (Auto) 1.6, Sodium Level 133L, Potassium Level 5.3H, Chloride Level 100, Carbon Dioxide Level 20L, Anion Gap 13, Blood Urea Nitrogen 34H, Creatinine 1.1, Estimat Glomerular Filtration Rate > 60, Glucose Level 106 , Calcium Level 8.6 01/03/19 11:00: Vancomycin Level Trough 23.0H Height (Feet): 5 Height (Inches): 10.00 Weight (Pounds): 155 General Appearance: lethargic EENT: normal ENT inspection Neck: normal alignment Cardiovascular: normal peripheral pulses, normal rate, regular rhythm Respiratory/Chest: chest wall non-tender, lungs clear, normal breath sounds Abdomen: normal bowel sounds, non tender, soft Extremities: normal inspection Edema: no edema noted Arm (L), no edema noted Arm (R), no edema noted Leg (L), no edema noted Leg (R), no edema noted Pedal (L), no edema noted Pedal (R), no edema noted Generalized Neurologic: motor weakness Skin: normal pigmentation, warm/dry Gato Viveros DO Jan 03, 2019 14:19
[2019-01-03] MEDS ORDERED: Silver Nitrate Stick TOPIC SCH (15:00)
[2019-01-03 16:00] VITALS: BP 109/68
--- NOTE | 2019-01-03 17:14 | Infectious Diseases Prog Note ---
Assessment/Plan Assessment/Plan Assessment: Fever; improving- r/o bacteremia -01/02 Bcx Leukocytosis; improving - recurrent - PEG site with purulent discharge 12/18/18 Cx growing KPC K pna (S Tigecycline), ESBL E. coli (S Tigecycline) and CoNS -Infected obstructive ureteral stone w/ adjacent abscess and moderate L hydronephrosis -12/31 SP Successful placement of left nephrostomy catheter, with aspiration of approximately 30 mL of james pus. A specimen was sent to the lab -CX <1+1 GNR -12/25 u/a wbc 15-20, nit neg, leuk +3; ucx <10k GNR (work up not done), 50 -60k C. tropicalis -12/24 CT abd/p: : Positive for 18 x 12 mm calculus within the proximal left ureter, approximately 5 cm distal to ureteropelvic junction. This results in moderate left hydronephrosis. Thinning of the cortex suggests that this is likely long- standing Abnormal appearance to the left proximal ureteral and renal pelvic urothelium as well as of the renal parenchyma, consistent with nephritis, pyelitis, and ureter right is. Multiloculated fluid collection with rim enhancement anterior to the proximal ureter adjacent to the stone. This is probably an abscess related to the stone and a pyelitis. Unusually, however, it appears largely anterior to Gerota's fascia rather than within it. Bladder wall thickening, suggests cystitis or chronic bladder outlet obstruction. Given the asymmetry of the bladder wall thickening, the possibility of tumor should also be considered. Nonobstructive bilateral intrarenal calculi, new/increased since prior exam of 01/19/2016. Rectal distention with stool. Mild rectal wall thickening. Findings could indicate fecal impaction with associated stercoral proctitis. However, findings are somewhat similar to the prior 2016 exam and could just be baseline for this patient. Gastrostomy in good position. No apparent complication associated with such. Marked laxity of the central lower abdominal wall musculature resulting in anterior protuberance of the abdomen and contents, without definite james herniation or obstruction. Probable granulomatous calcification within the mediastinum -CXR: No acute process. Right basilar atelectasis -Sp cx 12/09/18 E.coli (ESBL), P.a. 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 diff Dysphagia s/p G-tube Anemia. CVA/TIA w/ hemiplegia functional quadriplegia chronic encephalopathy CAD CHF Dm2 GIB s/p multiple EGDs in the past hx of severe esophagitis schizoaffective disease shelter resident multiple admissions VRE colonization Plan: - Cont Vancomcyin and tigecycline #/ for PEG site infection and UTI/abscess and pending UCx -based on Neprhostomy tube cx- will re-assess abx and extend duration for abscess -Cont fluconazole #4 in the setting of funguria with infected stone and perinephric abscess - f/u cx -f/u Bcx x2 -URo f/u: not candidate for surgical intervention given chronicity, comorbidities and loss of function of L kidney - 12/23/18 SP Zosyn #11, inhaled colistin #8 for MDR P.a.for sputum organism and Fluconazole #7 for Yeast it the urine - 12/12 S/P Vancomycin and Cefepime #5 -12/08 SP Levaquin x1 -11/06 SP Amikacin #6 -11/01 SP Meropenem #4 -10/29 SP IV Vanco #2, Cefepime #2 and Tigecycline #1 -10/28 SP LEavquin x1 -10/09 SP Ertapenem #5 - 10/04 SP Meropenem #2 -10/03/18 SP IV Vancomycin #2 and Cefepime #2 -08/09/18 SP Bactrim #7 -08/03 SP Vancomycin and Cefepime #3 -08/01/18 SP Ceftriaxone x1 -Monitor CBC/CMP, temperatures -Peg/trach care -aspiration precautions Will continue to follow along with you. Discussed with RN Subjective Allergies: Coded Allergies: NO KNOWN DRUG ALLERGIES (Verified Allergy, Unknown, 09/11/16) Subjective Tm 101.7 wbc increased Objective Vital Signs Last 24 Hour Vital Signs Date Time Temp Pulse Resp B/P (MAP) Pulse Ox O2 Delivery O2 Flow Rate FiO2 01/03/19 16:00 98.1 85 20 109/68 (82) 95 01/03/19 16:00 80 01/03/19 16:00 Mechanical Ventilator 01/03/19 16:00 35 01/03/19 15:20 86 18 35 01/03/19 13:41 87 18 35 01/03/19 12:22 91 01/03/19 12:00 Mechanical Ventilator 01/03/19 12:00 98.2 77 18 123/69 (87) 100 01/03/19 12:00 35 01/03/19 11:05 84 18 35 01/03/19 09:15 98.7 01/03/19 09:06 81 18 35 01/03/19 08:00 Mechanical Ventilator 01/03/19 08:00 35 01/03/19 08:00 99.5 82 20 106/72 (83) 99 01/03/19 07:44 83 01/03/19 07:15 83 19 35 01/03/19 05:03 89 17 35 01/03/19 04:00 98.1 81 18 122/73 (89) 100 01/03/19 04:00 99 01/03/19 04:00 35 01/03/19 04:00 Mechanical Ventilator 01/03/19 03:17 106 23 35 01/03/19 01:02 97 25 35 01/03/19 00:00 35 01/03/19 00:00 97.9 79 18 115/74 (88) 100 01/03/19 00:00 105 01/03/19 00:00 Mechanical Ventilator 01/02/19 23:00 105 24 35 01/02/19 20:54 88 24 35 01/02/19 20:00 35 01/02/19 20:00 Mechanical Ventilator 01/02/19 20:00 83 01/02/19 20:00 97.7 88 16 108/66 (80) 94 01/02/19 20:00 35 01/02/19 18:45 85 17 35 Height (Feet): 5 Height (Inches): 10.00 Weight (Pounds): 155 Objective Status: awake Condition: critical HEENT: atraumatic Neck: full ROM, trach Lungs: rales, rhonchi Heart: HR/BP stable, HR/BP unstable Abdomen: soft, non-tender Extremities: edema Decubiti: location Laboratory Tests Test 01/03/19 03:15 01/03/19 11:00 White Blood Count 10.9 K/UL (4.8-10.8) H Red Blood Count 3.46 M/UL (4.70-6.10) L Hemoglobin 9.7 G/DL (14.2-18.0) L Hematocrit 30.5 % (42.0-52.0) L Mean Corpuscular Volume 88 FL (80-99) Mean Corpuscular Hemoglobin 27.9 PG (27.0-31.0) Mean Corpuscular Hemoglobin Concent 31.8 G/DL (32.0-36.0) L Red Cell Distribution Width 15.2 % (11.6-14.8) H Platelet Count 424 K/UL (150-450) Mean Platelet Volume 5.8 FL (6.5-10.1) L Neutrophils (%) (Auto) 66.7 % (45.0-75.0) Lymphocytes (%) (Auto) 16.8 % (20.0-45.0) L Monocytes (%) (Auto) 11.5 % (1.0-10.0) H Eosinophils (%) (Auto) 3.4 % (0.0-3.0) H Basophils (%) (Auto) 1.6 % (0.0-2.0) Sodium Level 133 MMOL/L (136-145) L Potassium Level 5.3 MMOL/L (3.5-5.1) H Chloride Level 100 MMOL/L (98-107) Carbon Dioxide Level 20 MMOL/L (21-32) L Anion Gap 13 mmol/L (5-15) Blood Urea Nitrogen 34 mg/dL (7-18) H Creatinine 1.1 MG/DL (0.55-1.30) Estimat Glomerular Filtration Rate > 60 mL/min (>60) Glucose Level 106 MG/DL (74-106) Calcium Level 8.6 MG/DL (8.5-10.1) Vancomycin Level Trough 23.0 ug/mL (5.0-12.0) H Current Medications Medications (Trade) Dose Ordered Sig/Wanda Route PRN Reason Start Time Stop Time Status Last Admin Dose Admin Acetaminophen (Tylenol) 650 mg Q4H PRN GT Mild Pain/Temp > 100.5 12/15/18 10:45 01/14/19 10:44 01/03/19 08:45 Chlorhexidine Gluconate (Jasmin-Hex 2%) 1 applic DAILY@2000 TOPIC 12/11/18 20:00 01/10/19 19:59 01/02/19 20:07 Dextrose (Dextrose 50%) 25 ml Q30M PRN IV Hypoglycemia 12/08/18 16:15 01/07/19 16:14 Dextrose (Dextrose 50%) 50 ml Q30M PRN IV hypoglycemia 12/08/18 16:15 01/07/19 16:14 Fluconazole (Diflucan) 200 mg DAILY GT 01/02/19 09:00 01/09/19 08:59 01/03/19 08:43 Heparin Sodium (Porcine) (Heparin 5000 units/ml) 5,000 units EVERY 12 HOURS SUBQ 12/08/18 21:00 01/07/19 20:59 01/03/19 08:46 Lansoprazole (Prevacid) 30 mg DAILY GT 12/18/18 09:00 01/17/19 08:59 01/03/19 08:51 Levothyroxine Sodium (Synthroid) 75 mcg Q24H GT 12/09/18 06:30 01/08/19 06:29 01/03/19 05:28 Ondansetron HCl (Zofran) 4 mg Q6H PRN IVP Nausea & Vomiting 12/08/18 16:00 01/07/19 15:59 Polyethylene Glycol (Miralax) 17 gm DAILYPRN PRN GT Constipation 12/15/18 10:45 01/07/19 15:59 Sucralfate (Carafate) 1 gm EVERY 6 HOURS GT 12/15/18 18:00 01/07/19 17:59 01/03/19 12:42 Tigecycline 50 mg/ Sodium Chloride 110 ml @ 220 mls/hr EVERY 12 HOURS IVPB 12/23/18 21:00 01/05/19 23:59 01/03/19 08:44 Vancomycin HCl (Vanco rx to dose) 1 ea DAILY PRN MISC PER PHARMACY 12/23/18 09:30 01/22/19 09:29 Vancomycin HCl 1 gm/Dextrose 275 ml @ 183.708 mls/hr Q24H IVPB 01/03/19 21:00 01/08/19 20:59 Lisy Lai M.D. Jan 03, 2019 17:14
--- NOTE | 2019-01-03 18:48 | NUR ---
NURSE NOTES: DR TORRES MADE AWARE NO OUTPUT FOR NEPHROSTOMY TUBE. NO NEW ORDER. WILL CONTINUE TO MONITOR.
--- NOTE | 2019-01-03 19:38 | NUR ---
HAND-OFF: Report given to Amparo Ni RN.
--- NOTE | 2019-01-03 19:40 | NUR ---
NURSE NOTES: BEDSIDE REPORT RECEIVED FROM ODILIA CARDENAS. PT IS NONVERBAL, OPENS EYES SPONTANEOUSLY, UNABLE TO FOLLOW COMMANDS. PIE TOPPER SHOWING NSR. TRACH TO VENT: PORTEX 8, AC 16, TV 600, FIO2 30, PEEP 5. OSMOLYTE 1.5 @ 60, NO RESIDUAL NOTED. SKIN IS CLEAN, DRY, DRESSING INTACT. CONDOM CATH DRAINING, L/NEPHROSTOMY NOTED, NO DRAINAGE, MD AWARE OF NO OUTPUT IN AM SHIFT. PRASHANTH PICC; ASYMPTOMATIC, UNABLE TO DRAW HOWEVER. LABS OK, 30G KAYEXALATE GIVEN ON DAY SHIFT GOT POTASSIUM 5.3. BED IS LOCKED IN LOWEST POSITION, SR X3, CALL AYALA W/ IN REACH, BED ALARM ON, SZ PRECAUTIONS CONTINUED. WILL CONTINUE TO MONITOR AND FOLLOW W/ PLAN OF CARE.
[2019-01-03 20:00] VITALS: BP 144/85
[2019-01-03] MEDS: Dyna-Hex 2% Top Sol 2oz TOPIC SCH (20:51)
[2019-01-03] MEDS: Vancomycin 1gm/D5W 275ml IVPB SCH ×2 (20:51)
[2019-01-04] VITALS (7 sets, daily range): BP systolic 92–143; BP diastolic 51–77
[2019-01-04] MEDS: Sucralfate 1gm tab GT SCH ×4 (05:33→23:38)
[2019-01-04 06:18] LABS: BASOPHILS % (AUTO) 0.6 % (0.0-2.0); EOSINOPHILS % (AUTO) 4.1 % (0.0-3.0); HEMATOCRIT 33.8 % (42.0-52.0); HEMOGLOBIN 10.7 G/DL (14.2-18.0); MEAN CORPUSCULAR VOLUME 86 FL (80-99); MONOCYTES % (AUTO) 9.6 % (1.0-10.0); NEUTROPHILS % (AUTO) 63.7 % (45.0-75.0); PLATELET COUNT 434 K/UL (150-450); RED BLOOD COUNT 3.93 M/UL (4.70-6.10); RED CELL DISTRIBUTION WIDTH 14.6 % (11.6-14.8); WHITE BLOOD COUNT 10.6 K/UL (4.8-10.8)
[2019-01-04 06:50] LABS: ALANINE AMINOTRANSFERASE 37 U/L (12-78); ALBUMIN 2.3 G/DL (3.4-5.0); ALBUMIN/GLOBULIN RATIO 0.4 (1.0-2.7); ALKALINE PHOSPHATASE 208 U/L (46-116); ANION GAP 10 mmol/L (5-15); ASPARTATE AMINO TRANSFERASE 31 U/L (15-37); BILIRUBIN,TOTAL 0.3 MG/DL (0.2-1.0); BLOOD UREA NITROGEN 31 mg/dL (7-18); CALCIUM 9.1 MG/DL (8.5-10.1); CARBON DIOXIDE 24 MMOL/L (21-32); CHLORIDE 100 MMOL/L (98-107); CREATININE 1.1 MG/DL (0.55-1.30); PHOSPHORUS 4.1 MG/DL (2.5-4.9); POTASSIUM 4.1 MMOL/L (3.5-5.1); SODIUM 134 MMOL/L (136-145)
--- NOTE | 2019-01-04 07:27 | NUR ---
NURSE NOTES: Report received from ODILIA Membreno. Observed patient in bed. Open eyes by voice and shaking. Unable to follow command. On ventilator with previous setting and tolerated well with no distress noted. No s/s of pain at this time. PICC line intact and patent. GT site leaking with ongoing feeding. HOB elevated. Nephrostomy intact on left side. Condom cath intact and draining well. Bed in lowest position. Call light within reach. Will continue to monitor.
--- NOTE | 2019-01-04 07:30 | NUR ---
HAND-OFF: Report given to ODILIA SIMMONS.
[2019-01-04] MEDS: Tigecycline 50 MG in NS 110 ML IVPB SCH ×2 (08:07→20:34)
[2019-01-04] MEDS: Fluconazole 100mg tab GT SCH (08:07)
[2019-01-04] MEDS: Heparin 5000 units/ml inj SUBQ SCH ×2 (08:10→20:37)
--- NOTE | 2019-01-04 09:14 | General Progress Note ---
Assessment/Plan Problem List: (1) Severe sepsis ICD Codes: A41.9 - Sepsis, unspecified organism; R65.20 - Severe sepsis without septic shock SNOMED: 68056021 (2) Severe protein-calorie malnutrition ICD Codes: E43 - Unspecified severe protein-calorie malnutrition SNOMED: 401660923 (3) Feeding by G-tube ICD Codes: Z93.1 - Gastrostomy status SNOMED: 277593478, 047725028 (4) Respiratory failure, [id number] ICD Codes: J96.20 - Respiratory failure, [id number] SNOMED: 67912872 (5) Anemia ICD Codes: D64.9 - Anemia, unspecified SNOMED: 500027245 (6) Aspiration pneumonia ICD Codes: J69.0 - Pneumonitis due to inhalation of food and vomit SNOMED: 470116773 (7) Acute renal failure ICD Codes: N17.9 - Acute kidney failure, unspecified SNOMED: 37677674 Status: stable, progressing Assessment/Plan: vent abx cbc bmp am dc plan snf Subjective Constitutional: Reports: weakness Allergies: Coded Allergies: NO KNOWN DRUG ALLERGIES (Verified Allergy, Unknown, 09/11/16) All Systems: reviewed and negative except above Subjective trach vent altered Objective Last 24 Hour Vital Signs Date Time Temp Pulse Resp B/P (MAP) Pulse Ox O2 Delivery O2 Flow Rate FiO2 01/04/19 09:12 78 20 35 01/04/19 08:00 Mechanical Ventilator 01/04/19 08:00 97.5 83 21 142/77 (98) 100 01/04/19 07:56 35 01/04/19 07:53 83 01/04/19 07:05 80 18 35 01/04/19 05:18 77 16 35 01/04/19 04:00 Mechanical Ventilator 01/04/19 04:00 98.5 77 21 143/64 (90) 100 01/04/19 04:00 35 01/04/19 04:00 86 01/04/19 03:01 78 16 35 01/04/19 01:16 80 18 35 01/04/19 00:00 35 01/04/19 00:00 Mechanical Ventilator 01/04/19 00:00 98.8 84 21 123/56 (78) 100 01/04/19 00:00 85 4/26/19 23:29 85 28 35 35 01/03/19 21:24 80 16 35 35 01/03/19 20:00 Mechanical Ventilator 01/03/19 20:00 93 01/03/19 20:00 35 01/03/19 20:00 98.2 90 16 144/85 (104) 98 01/03/19 19:10 93 19 35 35 01/03/19 17:00 89 18 35 01/03/19 16:00 98.1 85 20 109/68 (82) 95 01/03/19 16:00 80 01/03/19 16:00 Mechanical Ventilator 01/03/19 16:00 35 01/03/19 15:20 86 18 35 01/03/19 13:41 87 18 35 01/03/19 12:22 91 01/03/19 12:00 Mechanical Ventilator 01/03/19 12:00 98.2 77 18 123/69 (87) 100 01/03/19 12:00 35 01/03/19 11:05 84 18 35 01/03/19 09:15 98.7 Intake and Output 01/03/19 01/04/19 19:00 07:00 Intake Total 1070 ml 1175.000 ml Output Total 560 ml 580 ml Balance 510 ml 595.000 ml Intake Free Water 130 ml 180 ml IV Total 220 ml 385.000 ml Tube Feeding 720 ml 600 ml Other 10 ml Output Urine Total 550 ml 550 ml Other 10 ml 30 ml # Bowel Movements 2 2 Laboratory Tests 01/03/19 11:00: Vancomycin Level Trough 23.0H 01/04/19 04:00: White Blood Count 10.6, Red Blood Count 3.93L, Hemoglobin 10.7L, Hematocrit 33.8L, Mean Corpuscular Volume 86, Mean Corpuscular Hemoglobin 27.3, Mean Corpuscular Hemoglobin Concent 31.7L, Red Cell Distribution Width 14.6, Platelet Count 434, Mean Platelet Volume 6.3L, Neutrophils (%) (Auto) 63.7, Lymphocytes (%) (Auto) 22.0, Monocytes (%) (Auto) 9.6, Eosinophils (%) (Auto) 4.1H, Basophils (%) (Auto) 0.6, Sodium Level 134L, Potassium Level 4.1, Chloride Level 100, Carbon Dioxide Level 24, Anion Gap 10, Blood Urea Nitrogen 31H, Creatinine 1.1, Estimat Glomerular Filtration Rate > 60, Glucose Level 98, Calcium Level 9.1, Phosphorus Level 4.1, Magnesium Level 2.1, Total Bilirubin 0.3, Aspartate Amino Transf (AST/SGOT) 31, Alanine Aminotransferase (ALT/SGPT) 37, Alkaline Phosphatase 208H, Total Protein 7.7, Albumin 2.3L, Globulin 5.4, Albumin/Globulin Ratio 0.4L Height (Feet): 5 Height (Inches): 10.00 Weight (Pounds): 155 General Appearance: lethargic EENT: normal ENT inspection Neck: normal alignment Cardiovascular: normal peripheral pulses, normal rate, regular rhythm Respiratory/Chest: chest wall non-tender, lungs clear, normal breath sounds Abdomen: normal bowel sounds, non tender, soft Extremities: normal inspection Edema: no edema noted Arm (L), no edema noted Arm (R), no edema noted Leg (L), no edema noted Leg (R), no edema noted Pedal (L), no edema noted Pedal (R), no edema noted Generalized Neurologic: motor weakness Skin: normal pigmentation, warm/dry Gato Viveros DO Jan 04, 2019 09:14
[2019-01-04] MEDS ORDERED: NS 275ml ONE (10:17)
[2019-01-04] MEDS ORDERED: Tubing IV Secondary IV ONE (10:17)
--- NOTE | 2019-01-04 10:22 | Pulmonolgy Critical Care Note ---
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 assemblertechnical 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 manager - Objective Last 24 Hour Vital Signs Date Time Temp Pulse Resp B/P (MAP) Pulse Ox O2 Delivery O2 Flow Rate FiO2 01/04/19 09:12 78 20 35 01/04/19 08:00 Mechanical Ventilator 01/04/19 08:00 97.5 83 21 142/77 (98) 100 01/04/19 07:56 35 01/04/19 07:53 83 01/04/19 07:05 80 18 35 01/04/19 05:18 77 16 35 01/04/19 04:00 Mechanical Ventilator 01/04/19 04:00 98.5 77 21 143/64 (90) 100 01/04/19 04:00 35 01/04/19 04:00 86 01/04/19 03:01 78 16 35 01/04/19 01:16 80 18 35 01/04/19 00:00 35 01/04/19 00:00 Mechanical Ventilator 01/04/19 00:00 98.8 84 21 123/56 (78) 100 01/04/19 00:00 85 01/03/19 23:29 85 28 35 35 01/03/19 21:24 80 16 35 35 01/03/19 20:00 Mechanical Ventilator 01/03/19 20:00 93 01/03/19 20:00 35 01/03/19 20:00 98.2 90 16 144/85 (104) 98 01/03/19 19:10 93 19 35 35 01/03/19 17:00 89 18 35 01/03/19 16:00 98.1 85 20 109/68 (82) 95 01/03/19 16:00 80 01/03/19 16:00 Mechanical Ventilator 01/03/19 16:00 35 01/03/19 15:20 86 18 35 01/03/19 13:41 87 18 35 01/03/19 12:22 91 01/03/19 12:00 Mechanical Ventilator 01/03/19 12:00 98.2 77 18 123/69 (87) 100 01/03/19 12:00 35 01/03/19 11:05 84 18 35 Status: awake Condition: critical HEENT: atraumatic Lungs: chest wall tender Heart: regular Abdomen: non-tender Extremities: no C/C/E Decubiti: location Micro: Microbiology Date/Time Source Procedure Growth Status 01/02/19 12:45 Blood Blood Culture - Preliminary NO GROWTH AFTER 24 HOURS Resulted 01/02/19 12:30 Blood Blood Culture - Preliminary NO GROWTH AFTER 24 HOURS Resulted 01/03/19 01:00 External Cath Urine Culture - Preliminary Gram Negative Alex Resulted Critical Care - Subjective ROS Limited/Unobtainable: Yes EKG Rhythm: Sinus Rhythm FI02: 35 Vent Support Breath Rate: 16 Vent Support Mode: AC Vent Tidal Volume: 600 Sputum Amount: Small PEEP: 5.0 PIP: 23 Tube Feeding Amount: 60 I&O: Intake and Output 01/03/19 01/04/19 19:00 07:00 Intake Total 1070 ml 1175.000 ml Output Total 560 ml 580 ml Balance 510 ml 595.000 ml Intake Free Water 130 ml 180 ml IV Total 220 ml 385.000 ml Tube Feeding 720 ml 600 ml Other 10 ml Output Urine Total 550 ml 550 ml Other 10 ml 30 ml # Bowel Movements 2 2 CXR: no change Labs: Laboratory Tests Test 01/03/19 11:00 01/04/19 04:00 Vancomycin Level Trough 23.0 ug/mL (5.0-12.0) H White Blood Count 10.6 K/UL (4.8-10.8) Red Blood Count 3.93 M/UL (4.70-6.10) L Hemoglobin 10.7 G/DL (14.2-18.0) L Hematocrit 33.8 % (42.0-52.0) L Mean Corpuscular Volume 86 FL (80-99) Mean Corpuscular Hemoglobin 27.3 PG (27.0-31.0) Mean Corpuscular Hemoglobin Concent 31.7 G/DL (32.0-36.0) L Red Cell Distribution Width 14.6 % (11.6-14.8) Platelet Count 434 K/UL (150-450) Mean Platelet Volume 6.3 FL (6.5-10.1) L Neutrophils (%) (Auto) 63.7 % (45.0-75.0) Lymphocytes (%) (Auto) 22.0 % (20.0-45.0) Monocytes (%) (Auto) 9.6 % (1.0-10.0) Eosinophils (%) (Auto) 4.1 % (0.0-3.0) H Basophils (%) (Auto) 0.6 % (0.0-2.0) Sodium Level 134 MMOL/L (136-145) L Potassium Level 4.1 MMOL/L (3.5-5.1) Chloride Level 100 MMOL/L (98-107) Carbon Dioxide Level 24 MMOL/L (21-32) Anion Gap 10 mmol/L (5-15) Blood Urea Nitrogen 31 mg/dL (7-18) H Creatinine 1.1 MG/DL (0.55-1.30) Estimat Glomerular Filtration Rate > 60 mL/min (>60) Glucose Level 98 MG/DL (74-106) Calcium Level 9.1 MG/DL (8.5-10.1) Phosphorus Level 4.1 MG/DL (2.5-4.9) Magnesium Level 2.1 MG/DL (1.8-2.4) Total Bilirubin 0.3 MG/DL (0.2-1.0) Aspartate Amino Transf (AST/SGOT) 31 U/L (15-37) Alanine Aminotransferase (ALT/SGPT) 37 U/L (12-78) Alkaline Phosphatase 208 U/L (46-116) H Total Protein 7.7 G/DL (6.4-8.2) Albumin 2.3 G/DL (3.4-5.0) L Globulin 5.4 g/dL Albumin/Globulin Ratio 0.4 (1.0-2.7) L Huma Keating MD Jan 04, 2019 10:22
--- NOTE | 2019-01-04 10:33 | General Progress Note ---
Assessment/Plan Status: stable, progressing Assessment/Plan: (1) Severe protein-calorie malnutrition (2) GT SITE LEAKING (3) Anemia (4) Esophagitis (5) Upper GI bleed (6) Malfunction of gastrostomy tube Plan Reinforced the G-tube site dressings. We will consider changing to a larger size Frisian tube if G-tube site continues to leak. wound care consult appreciated. Monitor H&H, as needed transfusions PPI twice daily IV PO hydration follow labs Subjective ROS Limited/Unobtainable: No Allergies: Coded Allergies: NO KNOWN DRUG ALLERGIES (Verified Allergy, Unknown, 09/11/16) Objective Last 24 Hour Vital Signs Date Time Temp Pulse Resp B/P (MAP) Pulse Ox O2 Delivery O2 Flow Rate FiO2 01/04/19 09:12 78 20 35 01/04/19 08:00 Mechanical Ventilator 01/04/19 08:00 97.5 83 21 142/77 (98) 100 01/04/19 07:56 35 01/04/19 07:53 83 01/04/19 07:05 80 18 35 01/04/19 05:18 77 16 35 01/04/19 04:00 Mechanical Ventilator 01/04/19 04:00 98.5 77 21 143/64 (90) 100 01/04/19 04:00 35 01/04/19 04:00 86 01/04/19 03:01 78 16 35 01/04/19 01:16 80 18 35 01/04/19 00:00 35 01/04/19 00:00 Mechanical Ventilator 01/04/19 00:00 98.8 84 21 123/56 (78) 100 01/04/19 00:00 85 01/03/19 23:29 85 28 35 35 01/03/19 21:24 80 16 35 35 01/03/19 20:00 Mechanical Ventilator 01/03/19 20:00 93 01/03/19 20:00 35 01/03/19 20:00 98.2 90 16 144/85 (104) 98 01/03/19 19:10 93 19 35 35 01/03/19 17:00 89 18 35 01/03/19 16:00 98.1 85 20 109/68 (82) 95 01/03/19 16:00 80 01/03/19 16:00 Mechanical Ventilator 01/03/19 16:00 35 01/03/19 15:20 86 18 35 01/03/19 13:41 87 18 35 01/03/19 12:22 91 01/03/19 12:00 Mechanical Ventilator 01/03/19 12:00 98.2 77 18 123/69 (87) 100 01/03/19 12:00 35 01/03/19 11:05 84 18 35 Intake and Output 01/03/19 01/04/19 19:00 07:00 Intake Total 1070 ml 1175.000 ml Output Total 560 ml 580 ml Balance 510 ml 595.000 ml Intake Free Water 130 ml 180 ml IV Total 220 ml 385.000 ml Tube Feeding 720 ml 600 ml Other 10 ml Output Urine Total 550 ml 550 ml Other 10 ml 30 ml # Bowel Movements 2 2 Laboratory Tests 01/03/19 11:00: Vancomycin Level Trough 23.0H 01/04/19 04:00: White Blood Count 10.6, Red Blood Count 3.93L, Hemoglobin 10.7L, Hematocrit 33.8L, Mean Corpuscular Volume 86, Mean Corpuscular Hemoglobin 27.3, Mean Corpuscular Hemoglobin Concent 31.7L, Red Cell Distribution Width 14.6, Platelet Count 434, Mean Platelet Volume 6.3L, Neutrophils (%) (Auto) 63.7, Lymphocytes (%) (Auto) 22.0, Monocytes (%) (Auto) 9.6, Eosinophils (%) (Auto) 4.1H, Basophils (%) (Auto) 0.6, Sodium Level 134L, Potassium Level 4.1, Chloride Level 100, Carbon Dioxide Level 24, Anion Gap 10, Blood Urea Nitrogen 31H, Creatinine 1.1, Estimat Glomerular Filtration Rate > 60, Glucose Level 98, Calcium Level 9.1, Phosphorus Level 4.1, Magnesium Level 2.1, Total Bilirubin 0.3, Aspartate Amino Transf (AST/SGOT) 31, Alanine Aminotransferase (ALT/SGPT) 37, Alkaline Phosphatase 208H, Total Protein 7.7, Albumin 2.3L, Globulin 5.4, Albumin/Globulin Ratio 0.4L Height (Feet): 5 Height (Inches): 10.00 Weight (Pounds): 155 General Appearance: no apparent distress EENT: normal ENT inspection Neck: supple Cardiovascular: normal rate Respiratory/Chest: decreased breath sounds Abdomen: normal bowel sounds, non tender, soft Extremities: non-tender Vitaliy Wilson MD Jan 04, 2019 10:33
--- NOTE | 2019-01-04 10:47 | Infectious Diseases Prog Note ---
Assessment/Plan Assessment/Plan Assessment: Fever; improving- r/o bacteremia -01/02 Bcx Leukocytosis; improving - recurrent - PEG site with purulent discharge 12/18/18 Cx growing KPC K pna (S Tigecycline), ESBL E. coli (S Tigecycline) and CoNS -Infected obstructive ureteral stone w/ adjacent abscess and moderate L hydronephrosis -12/31 SP Successful placement of left nephrostomy catheter, with aspiration of approximately 30 mL of james pus. A specimen was sent to the lab -CX <1+1 ESBL P. mirabilis (sensi p) -12/25 u/a wbc 15-20, nit neg, leuk +3; ucx <10k GNR (work up not done), 50 -60k C. tropicalis -12/24 CT abd/p: : Positive for 18 x 12 mm calculus within the proximal left ureter, approximately 5 cm distal to ureteropelvic junction. This results in moderate left hydronephrosis. Thinning of the cortex suggests that this is likely long- standing Abnormal appearance to the left proximal ureteral and renal pelvic urothelium as well as of the renal parenchyma, consistent with nephritis, pyelitis, and ureter right is. Multiloculated fluid collection with rim enhancement anterior to the proximal ureter adjacent to the stone. This is probably an abscess related to the stone and a pyelitis. Unusually, however, it appears largely anterior to Gerota's fascia rather than within it. Bladder wall thickening, suggests cystitis or chronic bladder outlet obstruction. Given the asymmetry of the bladder wall thickening, the possibility of tumor should also be considered. Nonobstructive bilateral intrarenal calculi, new/increased since prior exam of 01/19/2016. Rectal distention with stool. Mild rectal wall thickening. Findings could indicate fecal impaction with associated stercoral proctitis. However, findings are somewhat similar to the prior 2016 exam and could just be baseline for this patient. Gastrostomy in good position. No apparent complication associated with such. Marked laxity of the central lower abdominal wall musculature resulting in anterior protuberance of the abdomen and contents, without definite james herniation or obstruction. Probable granulomatous calcification within the mediastinum -CXR: No acute process. Right basilar atelectasis -Sp cx 12/09/18 E.coli (ESBL), P.a. 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 diff Dysphagia s/p G-tube Anemia. CVA/TIA w/ hemiplegia functional quadriplegia chronic encephalopathy CAD CHF Dm2 GIB s/p multiple EGDs in the past hx of severe esophagitis schizoaffective disease [facility] resident multiple admissions VRE colonization Plan: - Cont Vancomcyin and tigecycline #13/14 for PEG site infection and UTI/abscess and pending UCx -after above regimen is completed, will then switch to Ertapenem 1g daily for total of 4-6 weeks for kidney abscess -Cont fluconazole #5/7-10 in the setting of funguria with infected stone and perinephric abscess - f/u cx -f/u Bcx x2 -URo f/u: not candidate for surgical intervention given chronicity, comorbidities and loss of function of L kidney - 12/23/18 SP Zosyn #11, inhaled colistin #8 for MDR P.a.for sputum organism and Fluconazole #7 for Yeast it the urine - 12/12 S/P Vancomycin and Cefepime #5 -12/08 SP Levaquin x1 -11/06 SP Amikacin #6 -11/01 SP Meropenem #4 -10/29 SP IV Vanco #2, Cefepime #2 and Tigecycline #1 -10/28 SP LEavquin x1 -10/09 SP Ertapenem #5 - 10/04 SP Meropenem #2 -10/03/18 SP IV Vancomycin #2 and Cefepime #2 -08/09/18 SP Bactrim #7 -08/03 SP Vancomycin and Cefepime #3 -08/01/18 SP Ceftriaxone x1 -Monitor CBC/CMP, temperatures -Peg/trach care -aspiration precautions Will continue to follow along with you. Discussed with RN Subjective Allergies: Coded Allergies: NO KNOWN DRUG ALLERGIES (Verified Allergy, Unknown, 09/11/16) Subjective Tm 101.7 wbc increased Objective Vital Signs Last 24 Hour Vital Signs Date Time Temp Pulse Resp B/P (MAP) Pulse Ox O2 Delivery O2 Flow Rate FiO2 01/04/19 09:12 78 20 35 01/04/19 08:00 Mechanical Ventilator 01/04/19 08:00 97.5 83 21 142/77 (98) 100 01/04/19 07:56 35 01/04/19 07:53 83 01/04/19 07:05 80 18 35 01/04/19 05:18 77 16 35 01/04/19 04:00 Mechanical Ventilator 01/04/19 04:00 98.5 77 21 143/64 (90) 100 01/04/19 04:00 35 01/04/19 04:00 86 01/04/19 03:01 78 16 35 01/04/19 01:16 80 18 35 01/04/19 00:00 35 01/04/19 00:00 Mechanical Ventilator 01/04/19 00:00 98.8 84 21 123/56 (78) 100 01/04/19 00:00 85 01/03/19 23:29 85 28 35 35 01/03/19 21:24 80 16 35 35 01/03/19 20:00 Mechanical Ventilator 01/03/19 20:00 93 01/03/19 20:00 35 01/03/19 20:00 98.2 90 16 144/85 (104) 98 01/03/19 19:10 93 19 35 35 01/03/19 17:00 89 18 35 01/03/19 16:00 98.1 85 20 109/68 (82) 95 01/03/19 16:00 80 01/03/19 16:00 Mechanical Ventilator 01/03/19 16:00 35 01/03/19 15:20 86 18 35 01/03/19 13:41 87 18 35 01/03/19 12:22 91 01/03/19 12:00 Mechanical Ventilator 01/03/19 12:00 98.2 77 18 123/69 (87) 100 01/03/19 12:00 35 01/03/19 11:05 84 18 35 Height (Feet): 5 Height (Inches): 10.00 Weight (Pounds): 155 Objective Status: awake Condition: critical HEENT: atraumatic Neck: full ROM, trach Lungs: rales, rhonchi Heart: HR/BP stable, HR/BP unstable Abdomen: soft, non-tender Extremities: edema Decubiti: location Microbiology Date/Time Source Procedure Growth Status 01/02/19 12:45 Blood Blood Culture - Preliminary NO GROWTH AFTER 24 HOURS Resulted 01/02/19 12:30 Blood Blood Culture - Preliminary NO GROWTH AFTER 24 HOURS Resulted 01/03/19 01:00 External Cath Urine Culture - Preliminary Gram Negative Alex Resulted Laboratory Tests Test 01/03/19 11:00 01/04/19 04:00 Vancomycin Level Trough 23.0 ug/mL (5.0-12.0) H White Blood Count 10.6 K/UL (4.8-10.8) Red Blood Count 3.93 M/UL (4.70-6.10) L Hemoglobin 10.7 G/DL (14.2-18.0) L Hematocrit 33.8 % (42.0-52.0) L Mean Corpuscular Volume 86 FL (80-99) Mean Corpuscular Hemoglobin 27.3 PG (27.0-31.0) Mean Corpuscular Hemoglobin Concent 31.7 G/DL (32.0-36.0) L Red Cell Distribution Width 14.6 % (11.6-14.8) Platelet Count 434 K/UL (150-450) Mean Platelet Volume 6.3 FL (6.5-10.1) L Neutrophils (%) (Auto) 63.7 % (45.0-75.0) Lymphocytes (%) (Auto) 22.0 % (20.0-45.0) Monocytes (%) (Auto) 9.6 % (1.0-10.0) Eosinophils (%) (Auto) 4.1 % (0.0-3.0) H Basophils (%) (Auto) 0.6 % (0.0-2.0) Sodium Level 134 MMOL/L (136-145) L Potassium Level 4.1 MMOL/L (3.5-5.1) Chloride Level 100 MMOL/L (98-107) Carbon Dioxide Level 24 MMOL/L (21-32) Anion Gap 10 mmol/L (5-15) Blood Urea Nitrogen 31 mg/dL (7-18) H Creatinine 1.1 MG/DL (0.55-1.30) Estimat Glomerular Filtration Rate > 60 mL/min (>60) Glucose Level 98 MG/DL (74-106) Calcium Level 9.1 MG/DL (8.5-10.1) Phosphorus Level 4.1 MG/DL (2.5-4.9) Magnesium Level 2.1 MG/DL (1.8-2.4) Total Bilirubin 0.3 MG/DL (0.2-1.0) Aspartate Amino Transf (AST/SGOT) 31 U/L (15-37) Alanine Aminotransferase (ALT/SGPT) 37 U/L (12-78) Alkaline Phosphatase 208 U/L (46-116) H Total Protein 7.7 G/DL (6.4-8.2) Albumin 2.3 G/DL (3.4-5.0) L Globulin 5.4 g/dL Albumin/Globulin Ratio 0.4 (1.0-2.7) L Current Medications Medications (Trade) Dose Ordered Sig/Wanda Route PRN Reason Start Time Stop Time Status Last Admin Dose Admin Acetaminophen (Tylenol) 650 mg Q4H PRN GT Mild Pain/Temp > 100.5 12/15/18 10:45 01/14/19 10:44 01/03/19 08:45 Chlorhexidine Gluconate (Jasimn-Hex 2%) 1 applic DAILY@2000 TOPIC 12/11/18 20:00 01/10/19 19:59 01/03/19 20:51 Dextrose (Dextrose 50%) 25 ml Q30M PRN IV Hypoglycemia 12/08/18 16:15 01/07/19 16:14 Dextrose (Dextrose 50%) 50 ml Q30M PRN IV hypoglycemia 12/08/18 16:15 01/07/19 16:14 Fluconazole (Diflucan) 200 mg DAILY GT 01/02/19 09:00 01/09/19 08:59 01/04/19 08:07 Heparin Sodium (Porcine) (Heparin 5000 units/ml) 5,000 units EVERY 12 HOURS SUBQ 12/08/18 21:00 01/07/19 20:59 01/04/19 08:10 Lansoprazole (Prevacid) 30 mg DAILY GT 12/18/18 09:00 01/17/19 08:59 01/04/19 08:07 Levothyroxine Sodium (Synthroid) 75 mcg Q24H GT 12/09/18 06:30 01/08/19 06:29 01/04/19 05:33 Ondansetron HCl (Zofran) 4 mg Q6H PRN IVP Nausea & Vomiting 12/08/18 16:00 01/07/19 15:59 Polyethylene Glycol (Miralax) 17 gm DAILYPRN PRN GT Constipation 12/15/18 10:45 01/07/19 15:59 Sucralfate (Carafate) 1 gm EVERY 6 HOURS GT 12/15/18 18:00 01/07/19 17:59 01/04/19 05:33 Tigecycline 50 mg/ Sodium Chloride 110 ml @ 220 mls/hr EVERY 12 HOURS IVPB 12/23/18 21:00 01/05/19 23:59 01/04/19 08:07 Vancomycin HCl (Vanco rx to dose) 1 ea DAILY PRN MISC PER PHARMACY 12/23/18 09:30 01/22/19 09:29 Vancomycin HCl 1 gm/Dextrose 275 ml @ 183.708 mls/hr Q24H IVPB 01/03/19 21:00 01/08/19 20:59 01/03/19 20:51 Lisy Lai M.D. Jan 04, 2019 10:47
--- NOTE | 2019-01-04 12:19 | NUR ---
NURSE NOTES: Informed Dr. Bernard regarding no drainage noted on nephrectomy site with no new order at this time.
[2019-01-04] MEDS: Ertapenem 1 GM in NS 55 ML IVPB SCH (12:51)
--- NOTE | 2019-01-04 12:55 | Surgery Progress Note ---
Surgery Progress Note Subjective Additional Comments silver nitrite placed around wound of g tube. site large and lots of leakage noted today. trying to pull tube again noted while in room. Objective Last 24 Hour Vital Signs Date Time Temp Pulse Resp B/P (MAP) Pulse Ox O2 Delivery O2 Flow Rate FiO2 01/04/19 12:00 82 01/04/19 12:00 35 01/04/19 12:00 98.6 89 21 136/65 (88) 97 01/04/19 12:00 Mechanical Ventilator 01/04/19 10:55 80 21 35 01/04/19 09:12 78 20 35 01/04/19 08:00 Mechanical Ventilator 01/04/19 08:00 97.5 83 21 142/77 (98) 100 01/04/19 07:56 35 01/04/19 07:53 83 01/04/19 07:05 80 18 35 01/04/19 05:18 77 16 35 01/04/19 04:00 Mechanical Ventilator 01/04/19 04:00 98.5 77 21 143/64 (90) 100 01/04/19 04:00 35 01/04/19 04:00 86 01/04/19 03:01 78 16 35 01/04/19 01:16 80 18 35 01/04/19 00:00 35 01/04/19 00:00 Mechanical Ventilator 01/04/19 00:00 98.8 84 21 123/56 (78) 100 01/04/19 00:00 85 01/03/19 23:29 85 28 35 35 01/03/19 21:24 80 16 35 35 01/03/19 20:00 Mechanical Ventilator 01/03/19 20:00 93 01/03/19 20:00 35 01/03/19 20:00 98.2 90 16 144/85 (104) 98 01/03/19 19:10 93 19 35 35 01/03/19 17:00 89 18 35 01/03/19 16:00 98.1 85 20 109/68 (82) 95 01/03/19 16:00 80 01/03/19 16:00 Mechanical Ventilator 01/03/19 16:00 35 01/03/19 15:20 86 18 35 01/03/19 13:41 87 18 35 I&O Intake and Output 01/03/19 01/04/19 19:00 07:00 Intake Total 1070 ml 1175.000 ml Output Total 560 ml 580 ml Balance 510 ml 595.000 ml Intake Free Water 130 ml 180 ml IV Total 220 ml 385.000 ml Tube Feeding 720 ml 600 ml Other 10 ml Output Urine Total 550 ml 550 ml Other 10 ml 30 ml # Bowel Movements 2 2 Dressing: saturated Wound: other Drains: other Cardiovascular: RSR Respiratory: decreased breath sounds Abdomen: soft, present bowel sounds, other Extremities: no cyanosis Laboratory Tests Test 01/04/19 04:00 White Blood Count 10.6 K/UL (4.8-10.8) Red Blood Count 3.93 M/UL (4.70-6.10) L Hemoglobin 10.7 G/DL (14.2-18.0) L Hematocrit 33.8 % (42.0-52.0) L Mean Corpuscular Volume 86 FL (80-99) Mean Corpuscular Hemoglobin 27.3 PG (27.0-31.0) Mean Corpuscular Hemoglobin Concent 31.7 G/DL (32.0-36.0) L Red Cell Distribution Width 14.6 % (11.6-14.8) Platelet Count 434 K/UL (150-450) Mean Platelet Volume 6.3 FL (6.5-10.1) L Neutrophils (%) (Auto) 63.7 % (45.0-75.0) Lymphocytes (%) (Auto) 22.0 % (20.0-45.0) Monocytes (%) (Auto) 9.6 % (1.0-10.0) Eosinophils (%) (Auto) 4.1 % (0.0-3.0) H Basophils (%) (Auto) 0.6 % (0.0-2.0) Sodium Level 134 MMOL/L (136-145) L Potassium Level 4.1 MMOL/L (3.5-5.1) Chloride Level 100 MMOL/L (98-107) Carbon Dioxide Level 24 MMOL/L (21-32) Anion Gap 10 mmol/L (5-15) Blood Urea Nitrogen 31 mg/dL (7-18) H Creatinine 1.1 MG/DL (0.55-1.30) Estimat Glomerular Filtration Rate > 60 mL/min (>60) Glucose Level 98 MG/DL (74-106) Calcium Level 9.1 MG/DL (8.5-10.1) Phosphorus Level 4.1 MG/DL (2.5-4.9) Magnesium Level 2.1 MG/DL (1.8-2.4) Total Bilirubin 0.3 MG/DL (0.2-1.0) Aspartate Amino Transf (AST/SGOT) 31 U/L (15-37) Alanine Aminotransferase (ALT/SGPT) 37 U/L (12-78) Alkaline Phosphatase 208 U/L (46-116) H Total Protein 7.7 G/DL (6.4-8.2) Albumin 2.3 G/DL (3.4-5.0) L Globulin 5.4 g/dL Albumin/Globulin Ratio 0.4 (1.0-2.7) L Plan Problems: (1) Severe sepsis (2) Leukocytosis (3) Elevated lactic acid level (4) Right lower lobe pneumonia (5) Contracture of multiple joints (6) GT SITE LEAKING (7) Psychosis (8) Severe protein-calorie malnutrition Assessment & Plan: Non-blanchable erythema without fluctuance /induration L elbow. R elbow resolved and is pink and blanchable. Thoracic spine resolved and is pink and blanchable.Sacral area and bilat hips are pink and blanchable. Non- blanchable erythema without fluctuance or induration noted to R hallux (L)0.5cm x (W)1.5cm. Periwound is pink and blanchable.Non-blanchable erythema noted to medial/lateralR foot (L)1.2cm x (W)0.9cm. Periwound pink and blanchable. Non- blanchable erythema without induration or fluctuance Lateral malleolus(L)0.8cm x (W)0.7cm.Periwound pink and blanchable. Non-blanchable erythema without induration or fluctuance lateral/medial L foot. Periwound is pink and blanchable. L lateral malleolus resolved and is pink and blanchable.R hallux pink and blanchable. No new skin concerns noted. All wound prevention protocols continued as implemented. Pt has an APM/RENO mattress overlay and observed positioned with pillow including off-loading of heels with pillow. (9) Feeding by G-tube (10) Respiratory failure, [id number] (11) Anemia (12) Chronic respiratory failure (13) Septic shock (14) Esophagitis (15) Hypothyroidism (16) Aspiration pneumonia (17) Pyelonephritis (18) C. difficile colitis (19) Malfunction of gastrostomy tube Assessment & Plan: patient pulls tube intermittently now has larger wound / tube site now has abnormal wound around tube from leaking GI will monitor tube and leak for now will apply silver nitrate to wound to allow for healing will follow wound to ensure healing may need large feeding tube new dressings applied and tube tightened. will monitor. will discuss with GI for larger tube and possible tube stitch thank you (20) Acute encephalopathy (21) MDR Acinetobacter baumannii infection (22) Severe erosive esophagitis (23) Upper GI bleed (24) Alzheimer's dementia (25) Hypokalemia (26) Acute renal failure Quirino Bernard Jan 04, 2019 12:55
--- NOTE | 2019-01-04 13:20 | NUR ---
RESPIRATORY NOTE: PT RECEIVED IN CURRENT VENT SETTINGS: AC/VC 16 VT600 PEEP+5 FIO2 50%. PT CHULA CURRENT VENT SETTINGS WELL. PORTEX 8 TRACH SECURE AND PATENT. NO RESP DISTRESS NOTED. SX MODERATE WHITE/CLEAR SECRETIONS. VENT PLUGGED INTO RED OUTLET. ALARMS ON, AUDIBLE, AND FUNCTIONING. SPARE TRACH AND AMBU BAG AT BEDSIDE. WILL CONTINUE MONITORING PT.
--- NOTE | 2019-01-04 14:17 | NUR ---
CASE MANAGEMENT: REVIEW SI: ANEMIA . ASPIRATION PNA . OBSTRUCTIVE UROPATHY . GT SITE LEAKING LEFT NEPHROSTOMY 12/31 T 97.5 HR 83 RR 21 BP 142/77 SAT 100% MECH VENT FIO2 35 H/H 10.7/33.8 NA 134 BUN 31 ALK PHOS 208 IS: ERTAPENEM IV Q24HR VANCO IV Q24HR DIFLUCAN GT QD TIGECYCLINE IV Q12HR STEP DOWN UNIT STATUS DCP: PATIENT IS FROM [facility]
--- NOTE | 2019-01-04 16:25 | NUR ---
NURSE NOTES: Called and left message to Dr. Keating regarding low BP which is 85/46 and HR of 109. Patient is on Trendelenburg position and BP went up to 92/51. Awaiting for call back.
--- NOTE | 2019-01-04 16:30 | NUR ---
NURSE NOTES: Called and left message to Dr. Bernard regarding low BP and elevated HR also. Awaiting for call back.
--- NOTE | 2019-01-04 16:34 | NUR ---
NURSE NOTES: Called back from Dr. Bernard with new order of NS 500cc bolus. Order carried out.
--- NOTE | 2019-01-04 19:15 | NUR ---
NURSE NOTES: Pt report received from Marcia HARTLEY. PT neuro assessment is obtunded. Pt appears to be resting comfortably in bed with no distress noted. Pt has a monitor car operator on and is active and working. Pt has no signs or symptoms of any cardiac distress. Pt is on a Trach to Vent with settings of Portex 8, AC16, TV 600, FiO2 35%, Peep of 5. Pt is saturating well at 100%, with no signs or symptoms of respiratory distress noted. Pt has a Right upper arm PICC that is able to flush, with no abnormalities noted. Pt has a G tube, running Osmolite 1.5 at 60cc/hr, no abnormalities noted to G tube/ or site. Pt has a condom catheter that is patent and able to drain to gravity, no abnormalities noted. Pt has a Nephrostomy tube located on Left flank side, with marked drainage about of 30cc, no abnormalities noted to site. All safety precautions are in affect, such as bed is placed in lowest position, side rails are up times 3 and are padded, call light is within easy reach, safety brakes are engaged, bed alarm is active. Will continue plan of care.
--- NOTE | 2019-01-04 19:31 | NUR ---
HAND-OFF: Report given to ODILIA Guerrero. Stable condition.
[2019-01-04] MEDS: Dyna-Hex 2% Top Sol 2oz TOPIC SCH (20:35)
[2019-01-04] MEDS: Vancomycin 1gm/D5W 275ml IVPB SCH ×2 (20:43)
[2019-01-05] VITALS: BP 117/67
[2019-01-05 04:00] VITALS: BP 131/72
[2019-01-05 05:40] LABS: BASOPHILS % (AUTO) 0.6 % (0.0-2.0); EOSINOPHILS % (AUTO) 4.2 % (0.0-3.0); HEMATOCRIT 27.9 % (42.0-52.0); HEMOGLOBIN 9.1 G/DL (14.2-18.0); LYMPHOCYTES % (AUTO) 21.1 % (20.0-45.0); MEAN CORPUSCULAR VOLUME 85 FL (80-99); MONOCYTES % (AUTO) 8.3 % (1.0-10.0); NEUTROPHILS % (AUTO) 65.8 % (45.0-75.0); PLATELET COUNT 402 K/UL (150-450); RED BLOOD COUNT 3.28 M/UL (4.70-6.10); RED CELL DISTRIBUTION WIDTH 14.9 % (11.6-14.8); WHITE BLOOD COUNT 9.1 K/UL (4.8-10.8)
[2019-01-05] MEDS: Sucralfate 1gm tab GT SCH ×3 (05:54→17:08)
[2019-01-05 05:55] LABS: ANION GAP 8 mmol/L (5-15); BLOOD UREA NITROGEN 33 mg/dL (7-18); CALCIUM 8.2 MG/DL (8.5-10.1); CARBON DIOXIDE 24 MMOL/L (21-32); CHLORIDE 102 MMOL/L (98-107); CREATININE 1.1 MG/DL (0.55-1.30); POTASSIUM 4.1 MMOL/L (3.5-5.1); SODIUM 134 MMOL/L (136-145)
--- NOTE | 2019-01-05 07:15 | NUR ---
HAND-OFF: Report given to Cesar HERRERA).
--- NOTE | 2019-01-05 07:17 | NUR ---
RESPIRATORY NOTE: Patient received mechanically ventilated on PB 840 with current ordered vent settings. Patient has trash size 8.0 Portex cuffed that is secured with a trach tie and guard. There are bilateral coarse breath sounds noted. Small amount of clear/white, thin and frothy secretions were suctioned without incident. There is an ambu bag available at the bedside and the vent is connected to a red outlet. Vent alarms are functional and audible. Patient appears comfortable at this time. Will continue to monitor.
--- NOTE | 2019-01-05 07:29 | NUR ---
NURSE NOTES: Received report from ODILIA Montejo. Patient is resting in bed, in stable condition. No s/sx SOB, breathing is even and unlabored. Vent settings are as ordered. Observed no presence of pain or discomfort at this time. Bed is in lowest position, brakes engaged. Call light is kept within easy reach. Will continue to monitor patient.
[2019-01-05 08:00] VITALS: BP 149/68
[2019-01-05] MEDS: Fluconazole 100mg tab GT SCH (08:05)
[2019-01-05] MEDS: Tigecycline 50 MG in NS 110 ML IVPB SCH ×2 (08:07→20:50)
[2019-01-05] MEDS: Heparin 5000 units/ml inj SUBQ SCH ×2 (08:09→20:51)
--- NOTE | 2019-01-05 08:24 | General Progress Note ---
Assessment/Plan Status: stable, progressing Assessment/Plan: (1) Severe protein-calorie malnutrition (2) GT SITE LEAKING (3) Anemia (4) Esophagitis (5) Upper GI bleed (6) Malfunction of gastrostomy tube Plan Reinforced the G-tube site dressings. We will consider changing to a larger size Frisian tube if G-tube site continues to leak. wound care consult appreciated. Monitor H&H, as needed transfusions PPI twice daily IV PO hydration follow labs Subjective ROS Limited/Unobtainable: No Allergies: Coded Allergies: NO KNOWN DRUG ALLERGIES (Verified Allergy, Unknown, 09/11/16) Objective Last 24 Hour Vital Signs Date Time Temp Pulse Resp B/P (MAP) Pulse Ox O2 Delivery O2 Flow Rate FiO2 01/05/19 07:13 78 16 35 01/05/19 05:07 82 21 35 01/05/19 04:00 35 01/05/19 04:00 97.6 87 20 131/72 (91) 100 01/05/19 04:00 80 01/05/19 04:00 Mechanical Ventilator 01/05/19 02:28 85 26 35 01/05/19 01:09 80 18 35 01/05/19 00:00 98.4 95 19 117/67 (84) 100 01/05/19 00:00 80 01/05/19 00:00 Mechanical Ventilator 01/04/19 22:57 86 20 35 01/04/19 21:00 92 21 35 01/04/19 20:00 93 01/04/19 20:00 Mechanical Ventilator 01/04/19 20:00 35 01/04/19 20:00 98.1 89 20 98/54 (69) 100 01/04/19 19:15 94 21 35 01/04/19 17:19 113/61 (78) 01/04/19 16:00 Mechanical Ventilator 01/04/19 16:00 115 01/04/19 16:00 35 01/04/19 16:00 98.8 102 23 92/51 (65) 100 01/04/19 14:30 104 22 35 01/04/19 13:20 91 21 35 01/04/19 12:00 82 01/04/19 12:00 35 01/04/19 12:00 98.6 89 21 136/65 (88) 97 01/04/19 12:00 Mechanical Ventilator 01/04/19 10:55 80 21 35 01/04/19 09:12 78 20 35 Intake and Output 01/04/19 01/05/19 19:00 07:00 Intake Total 1115 ml 1245.0 ml Output Total 880 ml 300 ml Balance 235 ml 945.0 ml Intake Free Water 230 ml 200 ml IV Total 165 ml 385.0 ml Tube Feeding 720 ml 660 ml Output Urine Total 850 ml 300 ml Other 30 ml # Voids 2 # Bowel Movements 2 4 Laboratory Tests 01/05/19 04:00: White Blood Count 9.1, Red Blood Count 3.28L, Hemoglobin 9.1L, Hematocrit 27.9L , Mean Corpuscular Volume 85, Mean Corpuscular Hemoglobin 27.7, Mean Corpuscular Hemoglobin Concent 32.5, Red Cell Distribution Width 14.9H, Platelet Count 402, Mean Platelet Volume 6.3L, Neutrophils (%) (Auto) 65.8, Lymphocytes (%) (Auto) 21.1, Monocytes (%) (Auto) 8.3, Eosinophils (%) (Auto) 4.2H, Basophils (%) (Auto) 0.6, Sodium Level 134L, Potassium Level 4.1, Chloride Level 102, Carbon Dioxide Level 24, Anion Gap 8, Blood Urea Nitrogen 33H, Creatinine 1.1, Estimat Glomerular Filtration Rate > 60, Glucose Level 118H , Calcium Level 8.2L Height (Feet): 5 Height (Inches): 10.00 Weight (Pounds): 155 General Appearance: no apparent distress EENT: normal ENT inspection Neck: supple Cardiovascular: normal rate Respiratory/Chest: decreased breath sounds Abdomen: normal bowel sounds, non tender, soft Extremities: non-tender Vitaliy Wilson MD Jan 05, 2019 08:24
[2019-01-05] MEDS ORDERED: Tubing IV Secondary IV ONE (08:51)
[2019-01-05] MEDS ORDERED: NS 500ML ONE (08:51)
[2019-01-05] MEDS ORDERED: NS 275ml ONE (08:51)
--- NOTE | 2019-01-05 09:35 | General Progress Note ---
Assessment/Plan Problem List: (1) Severe sepsis ICD Codes: A41.9 - Sepsis, unspecified organism; R65.20 - Severe sepsis without septic shock SNOMED: 72305620 (2) Severe protein-calorie malnutrition ICD Codes: E43 - Unspecified severe protein-calorie malnutrition SNOMED: 057254408 (3) Feeding by G-tube ICD Codes: Z93.1 - Gastrostomy status SNOMED: 999666158, 542348330 (4) Respiratory failure, stipu-to-fdlftic ICD Codes: J96.20 - Respiratory failure, [id number]-ecqxcnu SNOMED: 40648227 (5) Anemia ICD Codes: D64.9 - Anemia, unspecified SNOMED: 536699281 (6) Aspiration pneumonia ICD Codes: J69.0 - Pneumonitis due to inhalation of food and vomit SNOMED: 675946351 (7) Acute renal failure ICD Codes: N17.9 - Acute kidney failure, unspecified SNOMED: 30003276 Status: stable, progressing Assessment/Plan: vent abx cbc bmp am dc plan snf Subjective Constitutional: Reports: weakness Allergies: Coded Allergies: NO KNOWN DRUG ALLERGIES (Verified Allergy, Unknown, 09/11/16) All Systems: reviewed and negative except above Subjective trach vent altered Objective Last 24 Hour Vital Signs Date Time Temp Pulse Resp B/P (MAP) Pulse Ox O2 Delivery O2 Flow Rate FiO2 01/05/19 08:00 97.5 78 20 149/68 (95) 100 01/05/19 08:00 35 01/05/19 08:00 Mechanical Ventilator 01/05/19 08:00 75 01/05/19 07:13 78 16 35 01/05/19 05:07 82 21 35 01/05/19 04:00 35 01/05/19 04:00 97.6 87 20 131/72 (91) 100 01/05/19 04:00 80 01/05/19 04:00 Mechanical Ventilator 01/05/19 02:28 85 26 35 01/05/19 01:09 80 18 35 01/05/19 00:00 98.4 95 19 117/67 (84) 100 01/05/19 00:00 80 01/05/19 00:00 Mechanical Ventilator 01/04/19 22:57 86 20 35 01/04/19 21:00 92 21 35 01/04/19 20:00 93 01/04/19 20:00 Mechanical Ventilator 01/04/19 20:00 35 01/04/19 20:00 98.1 89 20 98/54 (69) 100 01/04/19 19:15 94 21 35 01/04/19 17:19 113/61 (78) 01/04/19 16:00 Mechanical Ventilator 01/04/19 16:00 115 01/04/19 16:00 35 01/04/19 16:00 98.8 102 23 92/51 (65) 100 01/04/19 14:30 104 22 35 01/04/19 13:20 91 21 35 01/04/19 12:00 82 01/04/19 12:00 35 01/04/19 12:00 98.6 89 21 136/65 (88) 97 01/04/19 12:00 Mechanical Ventilator 01/04/19 10:55 80 21 35 Intake and Output 01/04/19 01/05/19 19:00 07:00 Intake Total 1115 ml 1245.0 ml Output Total 880 ml 300 ml Balance 235 ml 945.0 ml Intake Free Water 230 ml 200 ml IV Total 165 ml 385.0 ml Tube Feeding 720 ml 660 ml Output Urine Total 850 ml 300 ml Other 30 ml # Voids 2 # Bowel Movements 2 4 Laboratory Tests 01/05/19 04:00: White Blood Count 9.1, Red Blood Count 3.28L, Hemoglobin 9.1L, Hematocrit 27.9L , Mean Corpuscular Volume 85, Mean Corpuscular Hemoglobin 27.7, Mean Corpuscular Hemoglobin Concent 32.5, Red Cell Distribution Width 14.9H, Platelet Count 402, Mean Platelet Volume 6.3L, Neutrophils (%) (Auto) 65.8, Lymphocytes (%) (Auto) 21.1, Monocytes (%) (Auto) 8.3, Eosinophils (%) (Auto) 4.2H, Basophils (%) (Auto) 0.6, Sodium Level 134L, Potassium Level 4.1, Chloride Level 102, Carbon Dioxide Level 24, Anion Gap 8, Blood Urea Nitrogen 33H, Creatinine 1.1, Estimat Glomerular Filtration Rate > 60, Glucose Level 118H , Calcium Level 8.2L Height (Feet): 5 Height (Inches): 10.00 Weight (Pounds): 155 General Appearance: lethargic EENT: normal ENT inspection Neck: normal alignment Cardiovascular: normal peripheral pulses, normal rate, regular rhythm Respiratory/Chest: chest wall non-tender, lungs clear, normal breath sounds Abdomen: normal bowel sounds, non tender, soft Extremities: normal inspection Edema: no edema noted Arm (L), no edema noted Arm (R), no edema noted Leg (L), no edema noted Leg (R), no edema noted Pedal (L), no edema noted Pedal (R), no edema noted Generalized Neurologic: motor weakness Skin: normal pigmentation, warm/dry Gato Viveros DO Jan 05, 2019 09:35
--- NOTE | 2019-01-05 11:06 | NUR ---
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 ASPIRATION PNA . OBSTRUCTIVE UROPATHY . GT SITE LEAKING VS: BP 149/68, P 92, T 97.5, RR 25, SpO2 99 FiO2 35 RBC 3.28, H/H 9.1/27.9, Na 134, BUN 33 IS:MEROPENEM 55ml IVPB ERTAPENEM 55ml IVPB VANCOMYCIN 275ml IVPB TIGECYCLINE 110ml IVPB SDU STATUS
[2019-01-05 12:00] VITALS: BP 133/75
[2019-01-05] MEDS: Ertapenem 1 GM in NS 55 ML IVPB SCH (12:15)
--- NOTE | 2019-01-05 13:01 | Surgery Progress Note ---
Surgery Progress Note Subjective Additional Comments still leaking around drain but improved with new dressings placed. patient noted to attempt pulling tube erythema improved around tube site. Objective Last 24 Hour Vital Signs Date Time Temp Pulse Resp B/P (MAP) Pulse Ox O2 Delivery O2 Flow Rate FiO2 01/05/19 12:00 35 01/05/19 12:00 Mechanical Ventilator 01/05/19 12:00 97.5 80 20 133/75 (94) 99 01/05/19 10:48 76 18 35 01/05/19 09:10 79 17 35 01/05/19 08:00 97.5 78 20 149/68 (95) 100 01/05/19 08:00 35 01/05/19 08:00 Mechanical Ventilator 01/05/19 08:00 75 01/05/19 07:13 78 16 35 01/05/19 05:07 82 21 35 01/05/19 04:00 35 01/05/19 04:00 97.6 87 20 131/72 (91) 100 01/05/19 04:00 80 01/05/19 04:00 Mechanical Ventilator 01/05/19 02:28 85 26 35 01/05/19 01:09 80 18 35 01/05/19 00:00 98.4 95 19 117/67 (84) 100 01/05/19 00:00 80 01/05/19 00:00 Mechanical Ventilator 01/04/19 22:57 86 20 35 01/04/19 21:00 92 21 35 01/04/19 20:00 93 01/04/19 20:00 Mechanical Ventilator 01/04/19 20:00 35 01/04/19 20:00 98.1 89 20 98/54 (69) 100 01/04/19 19:15 94 21 35 01/04/19 17:19 113/61 (78) 01/04/19 16:00 Mechanical Ventilator 01/04/19 16:00 115 01/04/19 16:00 35 01/04/19 16:00 98.8 102 23 92/51 (65) 100 01/04/19 14:30 104 22 35 01/04/19 13:20 91 21 35 I&O Intake and Output 01/04/19 01/05/19 19:00 07:00 Intake Total 1115 ml 1245.0 ml Output Total 880 ml 300 ml Balance 235 ml 945.0 ml Intake Free Water 230 ml 200 ml IV Total 165 ml 385.0 ml Tube Feeding 720 ml 660 ml Output Urine Total 850 ml 300 ml Other 30 ml # Voids 2 # Bowel Movements 2 4 Dressing: saturated Wound: clean Drains: other Cardiovascular: RSR Respiratory: clear Abdomen: soft, present bowel sounds, other, non-distended Extremities: no tenderness, no cyanosis Laboratory Tests Test 01/05/19 04:00 White Blood Count 9.1 K/UL (4.8-10.8) Red Blood Count 3.28 M/UL (4.70-6.10) L Hemoglobin 9.1 G/DL (14.2-18.0) L Hematocrit 27.9 % (42.0-52.0) L Mean Corpuscular Volume 85 FL (80-99) Mean Corpuscular Hemoglobin 27.7 PG (27.0-31.0) Mean Corpuscular Hemoglobin Concent 32.5 G/DL (32.0-36.0) Red Cell Distribution Width 14.9 % (11.6-14.8) H Platelet Count 402 K/UL (150-450) Mean Platelet Volume 6.3 FL (6.5-10.1) L Neutrophils (%) (Auto) 65.8 % (45.0-75.0) Lymphocytes (%) (Auto) 21.1 % (20.0-45.0) Monocytes (%) (Auto) 8.3 % (1.0-10.0) Eosinophils (%) (Auto) 4.2 % (0.0-3.0) H Basophils (%) (Auto) 0.6 % (0.0-2.0) Sodium Level 134 MMOL/L (136-145) L Potassium Level 4.1 MMOL/L (3.5-5.1) Chloride Level 102 MMOL/L (98-107) Carbon Dioxide Level 24 MMOL/L (21-32) Anion Gap 8 mmol/L (5-15) Blood Urea Nitrogen 33 mg/dL (7-18) H Creatinine 1.1 MG/DL (0.55-1.30) Estimat Glomerular Filtration Rate > 60 mL/min (>60) Glucose Level 118 MG/DL (74-106) H Calcium Level 8.2 MG/DL (8.5-10.1) L Plan Problems: (1) Severe sepsis (2) Leukocytosis (3) Elevated lactic acid level (4) Right lower lobe pneumonia (5) Contracture of multiple joints (6) GT SITE LEAKING (7) Psychosis (8) Severe protein-calorie malnutrition Assessment & Plan: Non-blanchable erythema without fluctuance /induration L elbow. R elbow resolved and is pink and blanchable. Thoracic spine resolved and is pink and blanchable.Sacral area and bilat hips are pink and blanchable. Non- blanchable erythema without fluctuance or induration noted to R hallux (L)0.5cm x (W)1.5cm. Periwound is pink and blanchable.Non-blanchable erythema noted to medial/lateralR foot (L)1.2cm x (W)0.9cm. Periwound pink and blanchable. Non- blanchable erythema without induration or fluctuance Lateral malleolus(L)0.8cm x (W)0.7cm.Periwound pink and blanchable. Non-blanchable erythema without induration or fluctuance lateral/medial L foot. Periwound is pink and blanchable. L lateral malleolus resolved and is pink and blanchable.R hallux pink and blanchable. No new skin concerns noted. All wound prevention protocols continued as implemented. Pt has an APM/RENO mattress overlay and observed positioned with pillow including off-loading of heels with pillow. (9) Feeding by G-tube (10) Respiratory failure, [id number] (11) Anemia (12) Chronic respiratory failure (13) Septic shock (14) Esophagitis (15) Hypothyroidism (16) Aspiration pneumonia (17) Pyelonephritis (18) C. difficile colitis (19) Malfunction of gastrostomy tube Assessment & Plan: patient pulls tube intermittently now has larger wound / tube site now has abnormal wound around tube from leaking GI will monitor tube and leak for now will apply silver nitrate to wound to allow for healing will follow wound to ensure healing may need large feeding tube new dressings applied and tube tightened. will monitor. 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
--- NOTE | 2019-01-05 14:34 | Pulmonolgy Critical Care Note ---
Critical Care - Asmt/Plan Problems: (1) Respiratory failure, [id number] (2) Aspiration pneumonia (3) Severe sepsis (4) Anemia (5) Psychosis (6) Hypothyroidism (7) Severe protein-calorie malnutrition (8) Feeding by G-tube Respiratory: adjust tidal volume, monitor respiratory rate Cardiac: continue to monitor HR/BP Renal: F/U I&O, keep IV fluid Infectious Disease: check cultures, continue antibiotics Gastrointestinal: continue feedings/current rate Endocrine: monitor blood sugar Neurologic: PRN Morphine Prophylaxis: Protonix, Heparin Notes Reviewed: 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 with: nurses, consultants, therapeutic case managersoftware product manager - Objective Last 24 Hour Vital Signs Date Time Temp Pulse Resp B/P (MAP) Pulse Ox O2 Delivery O2 Flow Rate FiO2 01/05/19 13:18 80 19 35 01/05/19 12:00 35 01/05/19 12:00 Mechanical Ventilator 01/05/19 12:00 97.5 80 20 133/75 (94) 99 01/05/19 10:48 76 18 35 01/05/19 09:10 79 17 35 01/05/19 08:00 97.5 78 20 149/68 (95) 100 01/05/19 08:00 35 01/05/19 08:00 Mechanical Ventilator 01/05/19 08:00 75 01/05/19 07:13 78 16 35 01/05/19 05:07 82 21 35 01/05/19 04:00 35 01/05/19 04:00 97.6 87 20 131/72 (91) 100 01/05/19 04:00 80 01/05/19 04:00 Mechanical Ventilator 01/05/19 02:28 85 26 35 01/05/19 01:09 80 18 35 01/05/19 00:00 98.4 95 19 117/67 (84) 100 01/05/19 00:00 80 01/05/19 00:00 Mechanical Ventilator 01/04/19 22:57 86 20 35 01/04/19 21:00 92 21 35 01/04/19 20:00 93 01/04/19 20:00 Mechanical Ventilator 01/04/19 20:00 35 01/04/19 20:00 98.1 89 20 98/54 (69) 100 01/04/19 19:15 94 21 35 01/04/19 17:19 113/61 (78) 01/04/19 16:00 Mechanical Ventilator 01/04/19 16:00 115 01/04/19 16:00 35 01/04/19 16:00 98.8 102 23 92/51 (65) 100 Status: awake Condition: critical Neck: full ROM, trach Lungs: chest wall tender Heart: HR/BP unstable Abdomen: feeding tube Extremities: edema Micro: Microbiology Date/Time Source Procedure Growth Status 01/03/19 01:00 External Cath Urine Culture - Preliminary Pseudomonas Aeruginosa Resulted Critical Care - Subjective ROS Limited/Unobtainable: No Condition: critical EKG Rhythm: Sinus Rhythm FI02: 35 Vent Support Breath Rate: 16 Vent Support Mode: AC Vent Tidal Volume: 600 Sputum Amount: Small PEEP: 5.0 PIP: 20 Tube Feeding Amount: 60 I&O: Intake and Output 01/04/19 01/05/19 19:00 07:00 Intake Total 1115 ml 1245.0 ml Output Total 880 ml 300 ml Balance 235 ml 945.0 ml Intake Free Water 230 ml 200 ml IV Total 165 ml 385.0 ml Tube Feeding 720 ml 660 ml Output Urine Total 850 ml 300 ml Other 30 ml # Voids 2 # Bowel Movements 2 4 CXR: no changes Labs: Laboratory Tests Test 01/05/19 04:00 White Blood Count 9.1 K/UL (4.8-10.8) Red Blood Count 3.28 M/UL (4.70-6.10) L Hemoglobin 9.1 G/DL (14.2-18.0) L Hematocrit 27.9 % (42.0-52.0) L Mean Corpuscular Volume 85 FL (80-99) Mean Corpuscular Hemoglobin 27.7 PG (27.0-31.0) Mean Corpuscular Hemoglobin Concent 32.5 G/DL (32.0-36.0) Red Cell Distribution Width 14.9 % (11.6-14.8) H Platelet Count 402 K/UL (150-450) Mean Platelet Volume 6.3 FL (6.5-10.1) L Neutrophils (%) (Auto) 65.8 % (45.0-75.0) Lymphocytes (%) (Auto) 21.1 % (20.0-45.0) Monocytes (%) (Auto) 8.3 % (1.0-10.0) Eosinophils (%) (Auto) 4.2 % (0.0-3.0) H Basophils (%) (Auto) 0.6 % (0.0-2.0) Sodium Level 134 MMOL/L (136-145) L Potassium Level 4.1 MMOL/L (3.5-5.1) Chloride Level 102 MMOL/L (98-107) Carbon Dioxide Level 24 MMOL/L (21-32) Anion Gap 8 mmol/L (5-15) Blood Urea Nitrogen 33 mg/dL (7-18) H Creatinine 1.1 MG/DL (0.55-1.30) Estimat Glomerular Filtration Rate > 60 mL/min (>60) Glucose Level 118 MG/DL (74-106) H Calcium Level 8.2 MG/DL (8.5-10.1) L Huma Keating MD Jan 05, 2019 14:34
[2019-01-05] MEDS: Meropenem 1gm in NS 55ml IVPB SCH ×2 (15:22→20:52)
[2019-01-05 16:00] VITALS: BP 119/93
[2019-01-05] MEDS: Acetaminophen 650mg/20.3ml GT PRN (16:30)
--- NOTE | 2019-01-05 19:29 | NUR ---
HAND-OFF: Report given to ODILIA Gurrola.
--- NOTE | 2019-01-05 19:30 | NUR ---
NURSE NOTES: Received bedside report from ODILIA Guerrero.Patient stable,obtunded,SR on quality assurance monitor final,Portex 8,AC 16 TV 600 FiO2 35% PEEP 5,no s/s of pain,no respiratory distress noted,GT running with Osmolite 1.5 @ 60 ml/hr,no residual,BS active in all quadrants,IV asymptomatic,intact on PRASHANTH PICC line TKO,bed secured in a low safety position,call light within easy to reach,will continue to monitor and follow POC.
[2019-01-05 20:00] VITALS: BP 100/61
[2019-01-05] MEDS: Dyna-Hex 2% Top Sol 2oz TOPIC SCH (20:50)
[2019-01-05] MEDS: Vancomycin 1gm/D5W 275ml IVPB SCH ×2 (20:50)
[2019-01-06] VITALS: BP 85/51
[2019-01-06] MEDS: Sucralfate 1gm tab GT SCH ×5 (00:35→23:46)
[2019-01-06 04:00] VITALS: BP 110/63
[2019-01-06 05:26] LABS: BASOPHILS % (AUTO) 0.6 % (0.0-2.0); EOSINOPHILS % (AUTO) 1.7 % (0.0-3.0); HEMATOCRIT 28.5 % (42.0-52.0); HEMOGLOBIN 9.1 G/DL (14.2-18.0); MEAN CORPUSCULAR VOLUME 87 FL (80-99); NEUTROPHILS % (AUTO) 73.8 % (45.0-75.0); PLATELET COUNT 430 K/UL (150-450); RED BLOOD COUNT 3.29 M/UL (4.70-6.10); RED CELL DISTRIBUTION WIDTH 15.4 % (11.6-14.8)
[2019-01-06 05:35] LABS: ANION GAP 7 mmol/L (5-15); BLOOD UREA NITROGEN 36 mg/dL (7-18); CALCIUM 8.6 MG/DL (8.5-10.1); CARBON DIOXIDE 25 MMOL/L (21-32); CHLORIDE 106 MMOL/L (98-107); CREATININE 1.3 MG/DL (0.55-1.30); POTASSIUM 4.4 MMOL/L (3.5-5.1); SODIUM 138 MMOL/L (136-145)
[2019-01-06] MEDS: Meropenem 1gm in NS 55ml IVPB SCH ×3 (05:49→22:11)
--- NOTE | 2019-01-06 07:10 | NUR ---
HAND-OFF: Report given to ODILIA Frye.Patient stable.
--- NOTE | 2019-01-06 07:35 | General Progress Note ---
Assessment/Plan Status: stable, progressing Assessment/Plan: (1) Severe protein-calorie malnutrition (2) GT SITE LEAKING (3) Anemia (4) Esophagitis (5) Upper GI bleed (6) Malfunction of gastrostomy tube Plan Reinforced the G-tube site dressings. wound care consult appreciated. Monitor H&H, as needed transfusions PPI twice daily GTF follow labs Subjective ROS Limited/Unobtainable: No Allergies: Coded Allergies: NO KNOWN DRUG ALLERGIES (Verified Allergy, Unknown, 09/11/16) Objective Last 24 Hour Vital Signs Date Time Temp Pulse Resp B/P (MAP) Pulse Ox O2 Delivery O2 Flow Rate FiO2 01/06/19 07:22 80 19 35 01/06/19 05:10 84 20 35 01/06/19 04:00 Mechanical Ventilator 01/06/19 04:00 98.1 83 24 110/63 (79) 100 01/06/19 04:00 35 01/06/19 03:38 89 16 35 01/06/19 03:22 76 01/06/19 01:00 83 18 35 01/06/19 00:43 81 16 35 01/06/19 00:00 97.9 79 22 85/51 (62) 99 01/06/19 00:00 Mechanical Ventilator 01/05/19 23:45 80 01/05/19 23:15 81 16 35 01/05/19 21:13 86 18 35 01/05/19 20:21 85 21 35 01/05/19 20:00 85 01/05/19 20:00 98.2 90 18 100/61 (74) 100 01/05/19 20:00 Mechanical Ventilator 01/05/19 20:00 35 01/05/19 17:17 102 22 35 01/05/19 16:00 35 01/05/19 16:00 Mechanical Ventilator 01/05/19 16:00 97.5 110 20 119/93 (102) 99 01/05/19 16:00 86 01/05/19 15:26 92 25 35 01/05/19 13:18 80 19 35 01/05/19 12:00 35 01/05/19 12:00 Mechanical Ventilator 01/05/19 12:00 75 01/05/19 12:00 97.5 80 20 133/75 (94) 99 01/05/19 10:48 76 18 35 01/05/19 09:10 79 17 35 01/05/19 08:00 97.5 78 20 149/68 (95) 100 01/05/19 08:00 35 01/05/19 08:00 Mechanical Ventilator 01/05/19 08:00 75 Intake and Output 01/05/19 01/06/19 18:59 06:59 Intake Total 1020 ml 1215.000 ml Output Total 810 ml 350 ml Balance 210 ml 865.000 ml Intake Free Water 300 ml 60 ml IV Total 495.000 ml Tube Feeding 720 ml 660 ml Output Urine Total 750 ml 350 ml Other 60 ml # Voids 1 # Bowel Movements 7 Laboratory Tests 01/06/19 04:00: White Blood Count 12.0H, Red Blood Count 3.29L, Hemoglobin 9.1L, Hematocrit 28.5L, Mean Corpuscular Volume 87, Mean Corpuscular Hemoglobin 27.6, Mean Corpuscular Hemoglobin Concent 31.9L, Red Cell Distribution Width 15.4H, Platelet Count 430, Mean Platelet Volume 6.8, Neutrophils (%) (Auto) 73.8, Lymphocytes (%) (Auto) 18.0L, Monocytes (%) (Auto) 6.0, Eosinophils (%) (Auto) 1.7, Basophils (%) (Auto) 0.6, Sodium Level 138, Potassium Level 4.4, Chloride Level 106, Carbon Dioxide Level 25, Anion Gap 7, Blood Urea Nitrogen 36H, Creatinine 1.3, Estimat Glomerular Filtration Rate 54.6, Glucose Level 86, Calcium Level 8.6 Height (Feet): 5 Height (Inches): 10.00 Weight (Pounds): 155 General Appearance: no apparent distress EENT: normal ENT inspection Neck: supple Cardiovascular: normal rate Respiratory/Chest: decreased breath sounds Abdomen: normal bowel sounds, non tender, soft Extremities: non-tender Vitaliy Wilson MD Jan 06, 2019 07:35
[2019-01-06 08:00] VITALS: BP 143/87
--- NOTE | 2019-01-06 08:10 | NUR ---
NURSE NOTES: received pt in the bed, obtunded, vent dependent, vital signs stable, no co pain, no SOB, skin warm and dry to touch, PICC line on RT upper arm, dressing dry and intact, condom catheter with yellow urine, GT leaking, dr. Wilson aware, bed in low position, HOB elevated.
[2019-01-06] MEDS: Fluconazole 100mg tab GT SCH (08:21)
[2019-01-06] MEDS: Heparin 5000 units/ml inj SUBQ SCH ×2 (08:26→21:00)
--- NOTE | 2019-01-06 09:30 | General Progress Note ---
Assessment/Plan Problem List: (1) Severe sepsis ICD Codes: A41.9 - Sepsis, unspecified organism; R65.20 - Severe sepsis without septic shock SNOMED: 71453667 (2) Severe protein-calorie malnutrition ICD Codes: E43 - Unspecified severe protein-calorie malnutrition SNOMED: 946798522 (3) Feeding by G-tube ICD Codes: Z93.1 - Gastrostomy status SNOMED: 364821512, 931507018 (4) Respiratory failure, syhho-oi-hmlvyct ICD Codes: J96.20 - Respiratory failure, yfuba-ol-jmnzaza SNOMED: 64155646 (5) Anemia ICD Codes: D64.9 - Anemia, unspecified SNOMED: 131106460 (6) Aspiration pneumonia ICD Codes: J69.0 - Pneumonitis due to inhalation of food and vomit SNOMED: 644046271 (7) Acute renal failure ICD Codes: N17.9 - Acute kidney failure, unspecified SNOMED: 29192532 Status: stable, progressing Assessment/Plan: vent abx cbc bmp am dc plan snf Subjective Constitutional: Reports: weakness Allergies: Coded Allergies: NO KNOWN DRUG ALLERGIES (Verified Allergy, Unknown, 09/11/16) All Systems: reviewed and negative except above Subjective trach vent altered Objective Last 24 Hour Vital Signs Date Time Temp Pulse Resp B/P (MAP) Pulse Ox O2 Delivery O2 Flow Rate FiO2 01/06/19 09:27 78 22 35 01/06/19 08:00 77 01/06/19 08:00 35 01/06/19 07:22 80 19 35 01/06/19 05:10 84 20 35 01/06/19 04:00 Mechanical Ventilator 01/06/19 04:00 98.1 83 24 110/63 (79) 100 01/06/19 04:00 35 01/06/19 03:38 89 16 35 01/06/19 03:22 76 01/06/19 01:00 83 18 35 01/06/19 00:43 81 16 35 01/06/19 00:00 97.9 79 22 85/51 (62) 99 01/06/19 00:00 Mechanical Ventilator 01/05/19 23:45 80 01/05/19 23:15 81 16 35 01/05/19 21:13 86 18 35 01/05/19 20:21 85 21 35 01/05/19 20:00 85 01/05/19 20:00 98.2 90 18 100/61 (74) 100 01/05/19 20:00 Mechanical Ventilator 01/05/19 20:00 35 01/05/19 17:17 102 22 35 01/05/19 16:00 35 01/05/19 16:00 Mechanical Ventilator 01/05/19 16:00 97.5 110 20 119/93 (102) 99 01/05/19 16:00 86 01/05/19 15:26 92 25 35 01/05/19 13:18 80 19 35 01/05/19 12:00 35 01/05/19 12:00 Mechanical Ventilator 01/05/19 12:00 75 01/05/19 12:00 97.5 80 20 133/75 (94) 99 01/05/19 10:48 76 18 35 Intake and Output 01/05/19 01/06/19 18:59 06:59 Intake Total 1020 ml 1215.000 ml Output Total 810 ml 350 ml Balance 210 ml 865.000 ml Intake Free Water 300 ml 60 ml IV Total 495.000 ml Tube Feeding 720 ml 660 ml Output Urine Total 750 ml 350 ml Other 60 ml # Voids 1 # Bowel Movements 7 Laboratory Tests 01/06/19 04:00: White Blood Count 12.0H, Red Blood Count 3.29L, Hemoglobin 9.1L, Hematocrit 28.5L, Mean Corpuscular Volume 87, Mean Corpuscular Hemoglobin 27.6, Mean Corpuscular Hemoglobin Concent 31.9L, Red Cell Distribution Width 15.4H, Platelet Count 430, Mean Platelet Volume 6.8, Neutrophils (%) (Auto) 73.8, Lymphocytes (%) (Auto) 18.0L, Monocytes (%) (Auto) 6.0, Eosinophils (%) (Auto) 1.7, Basophils (%) (Auto) 0.6, Sodium Level 138, Potassium Level 4.4, Chloride Level 106, Carbon Dioxide Level 25, Anion Gap 7, Blood Urea Nitrogen 36H, Creatinine 1.3, Estimat Glomerular Filtration Rate 54.6, Glucose Level 86, Calcium Level 8.6 Height (Feet): 5 Height (Inches): 10.00 Weight (Pounds): 155 General Appearance: lethargic EENT: normal ENT inspection Neck: normal alignment Cardiovascular: normal peripheral pulses, normal rate, regular rhythm Respiratory/Chest: chest wall non-tender, lungs clear, normal breath sounds Abdomen: normal bowel sounds, non tender, soft Extremities: normal inspection Edema: no edema noted Arm (L), no edema noted Arm (R), no edema noted Leg (L), no edema noted Leg (R), no edema noted Pedal (L), no edema noted Pedal (R), no edema noted Generalized Neurologic: motor weakness Skin: normal pigmentation, warm/dry Gato Viveros DO Jan 06, 2019 09:30
--- NOTE | 2019-01-06 10:02 | Pulmonolgy Critical Care Note ---
Critical Care - Asmt/Plan Problems: (1) Respiratory failure, [id number] (2) Aspiration pneumonia (3) Severe sepsis (4) Anemia (5) Psychosis (6) Hypothyroidism (7) Severe protein-calorie malnutrition (8) Feeding by G-tube Respiratory: monitor respiratory rate, adjust FIO2, CXR Cardiac: continue pressors, continue to monitor HR/BP Renal: F/U I&O, keep IV fluid, check electrolytes Infectious Disease: continue antibiotics Endocrine: monitor blood sugar, check HgA1C Hematologic: monitor H/H, transfuse if hgb<8.5 Neurologic: PRN Ativan - , keep patient comfortable Prophylaxis: Protonix, Heparin Time Spent (Minutes): 40 Notes Reviewed: cardio, 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 with: nurses, consultants, employment case managerchannel sales manager - Objective Last 24 Hour Vital Signs Date Time Temp Pulse Resp B/P (MAP) Pulse Ox O2 Delivery O2 Flow Rate FiO2 01/06/19 09:27 78 22 35 01/06/19 08:00 77 01/06/19 08:00 35 01/06/19 07:22 80 19 35 01/06/19 05:10 84 20 35 01/06/19 04:00 Mechanical Ventilator 01/06/19 04:00 98.1 83 24 110/63 (79) 100 01/06/19 04:00 35 01/06/19 03:38 89 16 35 01/06/19 03:22 76 01/06/19 01:00 83 18 35 01/06/19 00:43 81 16 35 01/06/19 00:00 97.9 79 22 85/51 (62) 99 01/06/19 00:00 Mechanical Ventilator 01/05/19 23:45 80 01/05/19 23:15 81 16 35 01/05/19 21:13 86 18 35 01/05/19 20:21 85 21 35 01/05/19 20:00 85 01/05/19 20:00 98.2 90 18 100/61 (74) 100 01/05/19 20:00 Mechanical Ventilator 01/05/19 20:00 35 01/05/19 17:17 102 22 35 01/05/19 16:00 35 01/05/19 16:00 Mechanical Ventilator 01/05/19 16:00 97.5 110 20 119/93 (102) 99 01/05/19 16:00 86 01/05/19 15:26 92 25 35 01/05/19 13:18 80 19 35 01/05/19 12:00 35 01/05/19 12:00 Mechanical Ventilator 01/05/19 12:00 75 01/05/19 12:00 97.5 80 20 133/75 (94) 99 01/05/19 10:48 76 18 35 Status: awake Condition: critical Neck: full ROM Lungs: clear Heart: HR/BP stable, regular Abdomen: non-tender, active bowel sounds Extremities: no C/C/E, edema Critical Care - Subjective ROS Limited/Unobtainable: No Condition: critical EKG Rhythm: Sinus Rhythm FI02: 35 Vent Support Breath Rate: 16 Vent Support Mode: AC Vent Tidal Volume: 600 Sputum Amount: Moderate PEEP: 5.0 PIP: 32 Tube Feeding Amount: 60 I&O: Intake and Output 01/05/19 01/06/19 18:59 06:59 Intake Total 1020 ml 1215.000 ml Output Total 810 ml 350 ml Balance 210 ml 865.000 ml Intake Free Water 300 ml 60 ml IV Total 495.000 ml Tube Feeding 720 ml 660 ml Output Urine Total 750 ml 350 ml Other 60 ml # Voids 1 # Bowel Movements 7 CXR: no changes, trach intact Labs: Laboratory Tests Test 01/06/19 04:00 White Blood Count 12.0 K/UL (4.8-10.8) H Red Blood Count 3.29 M/UL (4.70-6.10) L Hemoglobin 9.1 G/DL (14.2-18.0) L Hematocrit 28.5 % (42.0-52.0) L Mean Corpuscular Volume 87 FL (80-99) Mean Corpuscular Hemoglobin 27.6 PG (27.0-31.0) Mean Corpuscular Hemoglobin Concent 31.9 G/DL (32.0-36.0) L Red Cell Distribution Width 15.4 % (11.6-14.8) H Platelet Count 430 K/UL (150-450) Mean Platelet Volume 6.8 FL (6.5-10.1) Neutrophils (%) (Auto) 73.8 % (45.0-75.0) Lymphocytes (%) (Auto) 18.0 % (20.0-45.0) L Monocytes (%) (Auto) 6.0 % (1.0-10.0) Eosinophils (%) (Auto) 1.7 % (0.0-3.0) Basophils (%) (Auto) 0.6 % (0.0-2.0) Sodium Level 138 MMOL/L (136-145) Potassium Level 4.4 MMOL/L (3.5-5.1) Chloride Level 106 MMOL/L (98-107) Carbon Dioxide Level 25 MMOL/L (21-32) Anion Gap 7 mmol/L (5-15) Blood Urea Nitrogen 36 mg/dL (7-18) H Creatinine 1.3 MG/DL (0.55-1.30) Estimat Glomerular Filtration Rate 54.6 mL/min (>60) Glucose Level 86 MG/DL (74-106) Calcium Level 8.6 MG/DL (8.5-10.1) Huma Keating MD Jan 06, 2019 10:02
[2019-01-06] MEDS ORDERED: NS 275ml ONE (10:36)
[2019-01-06] MEDS ORDERED: NS Irrig 1000ml ONE (10:36)
[2019-01-06] MEDS ORDERED: Tubing IV Secondary IV ONE (10:36)
--- NOTE | 2019-01-06 10:38 | NUR ---
*-*INSURANCE *-* UPDATED CLINICALS AND REVIEWS HAVE BEEN FAXED TO: [facility]: JOSE Soares P- [phone] F- [phone]...REVIEW/CLINICAL
--- NOTE | 2019-01-06 10:43 | NUR ---
RD ASSESSMENT & RECOMMENDATIONS SEE CARE ACTIVITY FOR COMPLETE ASSESSMENT DAILY ESTIMATED NEEDS: Needs based on Critical care, underweight, wound, TF BUILD MANAGER 56.8kg 30-35 kcals/kg [id number] total kcals 1.25-2 g protein/kg 71-114 g total protein 25-30 mL/kg 9290-2081 total fluid mLs NUTRITION DIAGNOSIS: Swallowing difficulty R/T respiratory status as evidenced by pt vent dep via trach, PEG dep. CURRENT TF:Osmolite 1.5 @ 60ml/hr x 22 hrs ENTERAL NUTRITION RECOMMENDATIONS: Osmolite 1.5 @ 60ml/hr x 22 hrs to provide 1320ml, 1980kcal, 83g prot, 1006ml free water * Continue current TF as tolerated * HOLD TF 1h before and 1 after Synthroid administration. * Flush per MD/ HOB over 30 degrees ADDITIONAL RECOMMENDATIONS: * Calibrated bedscale weight for accurate CBW, weekly wt monitoring * Monitor need for TF change and/or accucheck w/ SSI - h/o DM + hyperglycemia * Monitor lytes w/ TF, replete as needed * Wound care: add JOYCELYN UNFLAVORED BID via GT * REC UPDATED CALIBRATED BED SCALE WT D/T GT DEP + EXTENDED ADM *
--- NOTE | 2019-01-06 11:28 | NUR ---
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 ASPIRATION PNA . OBSTRUCTIVE UROPATHY . GT SITE LEAKING VS: BP 143/87, P 83, T 97.5, RR 24, SpO2 100 on VENT FiO2 35 WBC 12.0, RBC 3.29, Hgb 9.1, Hct 28.5, BUN 36 IS:HEPARIN SUBQ SYNTHROID 75mcg SUCRALFATE 1gm PREVACID 30mg DIFLUCAN 200mg MEROPENEM 1gm 55ml IVPB SDU STATUS
[2019-01-06 12:00] VITALS: BP 139/75
[2019-01-06] MEDS ORDERED: Ertapenem 1 GM in NS 55 ML IVPB SCH (12:00)
--- NOTE | 2019-01-06 14:03 | Infectious Diseases Prog Note ---
Assessment/Plan Assessment/Plan Assessment: Fever; Sp -01/02 Bcx Leukocytosis; mild - PEG site with purulent discharge 12/18/18 Cx growing KPC K pna (S Tigecycline), ESBL E. coli (S Tigecycline) and CoNS -Infected obstructive ureteral stone w/ adjacent abscess and moderate L hydronephrosis -01/03 UCx : MDR -PSA ( source ?external / condom Cath) -12/31 SP Successful placement of left nephrostomy catheter, with aspiration of approximately 30 mL of james pus. A specimen was sent to the lab -CX <1+1 ESBL P. mirabilis -12/25 u/a wbc 15-20, nit neg, leuk +3; ucx <10k GNR (work up not done), 50 -60k C. tropicalis -12/24 CT abd/p: : Positive for 18 x 12 mm calculus within the proximal left ureter, approximately 5 cm distal to ureteropelvic junction. This results in moderate left hydronephrosis. Thinning of the cortex suggests that this is likely long- standing Abnormal appearance to the left proximal ureteral and renal pelvic urothelium as well as of the renal parenchyma, consistent with nephritis, pyelitis, and ureter right is. Multiloculated fluid collection with rim enhancement anterior to the proximal ureter adjacent to the stone. This is probably an abscess related to the stone and a pyelitis. Unusually, however, it appears largely anterior to Gerota's fascia rather than within it. Bladder wall thickening, suggests cystitis or chronic bladder outlet obstruction. Given the asymmetry of the bladder wall thickening, the possibility of tumor should also be considered. Nonobstructive bilateral intrarenal calculi, new/increased since prior exam of 01/19/2016. Rectal distention with stool. Mild rectal wall thickening. Findings could indicate fecal impaction with associated stercoral proctitis. However, findings are somewhat similar to the prior 2016 exam and could just be baseline for this patient. Gastrostomy in good position. No apparent complication associated with such. Marked laxity of the central lower abdominal wall musculature resulting in anterior protuberance of the abdomen and contents, without definite james herniation or obstruction. Probable granulomatous calcification within the mediastinum -CXR: No acute process. Right basilar atelectasis -Sp cx 12/09/18 E.coli (ESBL), P.a. 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 diff Dysphagia s/p G-tube Anemia. CVA/TIA w/ hemiplegia functional quadriplegia chronic encephalopathy CAD CHF Dm2 GIB s/p multiple EGDs in the past hx of severe esophagitis schizoaffective disease penitentiary resident multiple admissions VRE colonization Plan: - Cont Amicakin d# / and Merrem d # 1 and DC , upon DC will change to Ertapenem 1g daily for total of 4 weeks for kidney abscess -Cont fluconazole # 7/7-10 in the setting of funguria with infected stone and perinephric abscess 01/06 Vancomcyin and tigecycline #14 for PEG site infection - f/u cx -f/u Bcx x2 -URo f/u: not candidate for surgical intervention given chronicity, comorbidities and loss of function of L kidney - 12/23/18 SP Zosyn #11, inhaled colistin #8 for MDR P.a.for sputum organism and Fluconazole #7 for Yeast it the urine - 12/12 S/P Vancomycin and Cefepime #5 -12/08 SP Levaquin x1 -11/06 SP Amikacin #6 -11/01 SP Meropenem #4 -10/29 SP IV Vanco #2, Cefepime #2 and Tigecycline #1 -10/28 SP LEavquin x1 -10/09 SP Ertapenem #5 - 10/04 SP Meropenem #2 -10/03/18 SP IV Vancomycin #2 and Cefepime #2 -08/09/18 SP Bactrim #7 -08/03 SP Vancomycin and Cefepime #3 -08/01/18 SP Ceftriaxone x1 -Monitor CBC/CMP, temperatures -Peg/trach care -aspiration precautions Subjective Allergies: Coded Allergies: NO KNOWN DRUG ALLERGIES (Verified Allergy, Unknown, 09/11/16) Subjective non verbal Objective Vital Signs Last 24 Hour Vital Signs Date Time Temp Pulse Resp B/P (MAP) Pulse Ox O2 Delivery O2 Flow Rate FiO2 01/06/19 13:21 86 17 35 01/06/19 12:00 98.1 78 18 139/75 (96) 94 01/06/19 12:00 35 01/06/19 12:00 Mechanical Ventilator 01/06/19 10:59 76 20 35 01/06/19 09:27 78 22 35 01/06/19 08:00 77 01/06/19 08:00 Mechanical Ventilator 01/06/19 08:00 97.5 81 18 143/87 (105) 100 01/06/19 08:00 35 01/06/19 07:22 80 19 35 01/06/19 05:10 84 20 35 01/06/19 04:00 Mechanical Ventilator 01/06/19 04:00 98.1 83 24 110/63 (79) 100 01/06/19 04:00 35 01/06/19 03:38 89 16 35 01/06/19 03:22 76 01/06/19 01:00 83 18 35 01/06/19 00:43 81 16 35 01/06/19 00:00 97.9 79 22 85/51 (62) 99 01/06/19 00:00 Mechanical Ventilator 01/05/19 23:45 80 01/05/19 23:15 81 16 35 01/05/19 21:13 86 18 35 01/05/19 20:21 85 21 35 01/05/19 20:00 85 01/05/19 20:00 98.2 90 18 100/61 (74) 100 01/05/19 20:00 Mechanical Ventilator 01/05/19 20:00 35 01/05/19 17:17 102 22 35 01/05/19 16:00 35 01/05/19 16:00 Mechanical Ventilator 01/05/19 16:00 97.5 110 20 119/93 (102) 99 01/05/19 16:00 86 01/05/19 15:26 92 25 35 Height (Feet): 5 Height (Inches): 10.00 Weight (Pounds): 155 HEENT: anicteric Respiratory/Chest: normal breath sounds Cardiovascular: regular rhythm Abdomen: soft, non tender Laboratory Tests Test 01/06/19 04:00 White Blood Count 12.0 K/UL (4.8-10.8) H Red Blood Count 3.29 M/UL (4.70-6.10) L Hemoglobin 9.1 G/DL (14.2-18.0) L Hematocrit 28.5 % (42.0-52.0) L Mean Corpuscular Volume 87 FL (80-99) Mean Corpuscular Hemoglobin 27.6 PG (27.0-31.0) Mean Corpuscular Hemoglobin Concent 31.9 G/DL (32.0-36.0) L Red Cell Distribution Width 15.4 % (11.6-14.8) H Platelet Count 430 K/UL (150-450) Mean Platelet Volume 6.8 FL (6.5-10.1) Neutrophils (%) (Auto) 73.8 % (45.0-75.0) Lymphocytes (%) (Auto) 18.0 % (20.0-45.0) L Monocytes (%) (Auto) 6.0 % (1.0-10.0) Eosinophils (%) (Auto) 1.7 % (0.0-3.0) Basophils (%) (Auto) 0.6 % (0.0-2.0) Sodium Level 138 MMOL/L (136-145) Potassium Level 4.4 MMOL/L (3.5-5.1) Chloride Level 106 MMOL/L (98-107) Carbon Dioxide Level 25 MMOL/L (21-32) Anion Gap 7 mmol/L (5-15) Blood Urea Nitrogen 36 mg/dL (7-18) H Creatinine 1.3 MG/DL (0.55-1.30) Estimat Glomerular Filtration Rate 54.6 mL/min (>60) Glucose Level 86 MG/DL (74-106) Calcium Level 8.6 MG/DL (8.5-10.1) Current Medications Medications (Trade) Dose Ordered Sig/Wanda Route PRN Reason Start Time Stop Time Status Last Admin Dose Admin Acetaminophen (Tylenol) 650 mg Q4H PRN GT Mild Pain/Temp > 100.5 12/15/18 10:45 01/14/19 10:44 01/05/19 16:30 Chlorhexidine Gluconate (Jasmin-Hex 2%) 1 applic DAILY@2000 TOPIC 12/11/18 20:00 01/10/19 19:59 01/05/19 20:50 Dextrose (Dextrose 50%) 25 ml Q30M PRN IV Hypoglycemia 12/08/18 16:15 01/07/19 16:14 Dextrose (Dextrose 50%) 50 ml Q30M PRN IV hypoglycemia 12/08/18 16:15 01/07/19 16:14 Fluconazole (Diflucan) 200 mg DAILY GT 01/02/19 09:00 01/09/19 08:59 01/06/19 08:21 Heparin Sodium (Porcine) (Heparin 5000 units/ml) 5,000 units EVERY 12 HOURS SUBQ 12/08/18 21:00 01/07/19 20:59 01/06/19 08:26 Lansoprazole (Prevacid) 30 mg DAILY GT 12/18/18 09:00 01/17/19 08:59 01/06/19 08:21 Levothyroxine Sodium (Synthroid) 75 mcg Q24H GT 12/09/18 06:30 01/08/19 06:29 01/06/19 05:48 Meropenem 1 gm/ Sodium Chloride 55 ml @ 110 mls/hr Q8HR IVPB 01/05/19 15:00 01/10/19 14:59 01/06/19 05:49 Ondansetron HCl (Zofran) 4 mg Q6H PRN IVP Nausea & Vomiting 12/08/18 16:00 01/07/19 15:59 Polyethylene Glycol (Miralax) 17 gm DAILYPRN PRN GT Constipation 12/15/18 10:45 01/07/19 15:59 Sucralfate (Carafate) 1 gm EVERY 6 HOURS GT 12/15/18 18:00 01/07/19 17:59 01/06/19 12:28 Cesario Daniels MD Jan 06, 2019 14:03
[2019-01-06] MEDS ORDERED: Amikacin Rx to dose MISC PRN (14:15)
[2019-01-06 16:00] VITALS: BP 143/76
[2019-01-06] MEDS ORDERED: Amikacin 1,000 MG in NS 110 ML IV SCH (16:00)
--- NOTE | 2019-01-06 19:11 | NUR ---
HAND-OFF: Report given to AIDA HARTLEY, NO DISTRESS AT THIS TIME.
--- NOTE | 2019-01-06 19:12 | NUR ---
NURSE NOTES: Received patient from Jeannie Frye RN. Patient is obtunded and is receiving oxygen via Portex 7, AC 16, TV 600, FiO2 40%, and PEEP 5. Gtube is patent and intact receiving Osmolite 1.5 @60cc/hr, tolerating well with no residuals. Right Upper Arm PICC line is patent and asymptomatic. Patient has a condom catheter on, patent and draining well. Bed is locked, placed in lowest position, side rails up x3. Will continue to monitor.
[2019-01-06 20:00] VITALS: BP 139/69
[2019-01-06] MEDS: Dyna-Hex 2% Top Sol 2oz TOPIC SCH (20:12)
--- NOTE | 2019-01-06 20:31 | Surgery Progress Note ---
Surgery Progress Note Subjective Additional Comments afebrile, HD stable. leukocytosis 12k. labs noted. exam unchanged. leaking at times Objective Last 24 Hour Vital Signs Date Time Temp Pulse Resp B/P (MAP) Pulse Ox O2 Delivery O2 Flow Rate FiO2 01/06/19 20:00 Mechanical Ventilator 01/06/19 20:00 35 01/06/19 20:00 98.2 80 17 139/69 (92) 98 01/06/19 19:26 82 01/06/19 19:10 82 18 35 01/06/19 17:15 80 20 35 01/06/19 16:00 82 01/06/19 16:00 Mechanical Ventilator 01/06/19 16:00 35 01/06/19 16:00 98.1 81 20 143/76 (98) 99 01/06/19 14:38 82 19 35 01/06/19 13:21 86 17 35 01/06/19 12:00 98.1 78 18 139/75 (96) 94 01/06/19 12:00 35 01/06/19 12:00 Mechanical Ventilator 01/06/19 12:00 80 01/06/19 10:59 76 20 35 01/06/19 09:27 78 22 35 01/06/19 08:00 77 01/06/19 08:00 Mechanical Ventilator 01/06/19 08:00 97.5 81 18 143/87 (105) 100 01/06/19 08:00 35 01/06/19 07:22 80 19 35 01/06/19 05:10 84 20 35 01/06/19 04:00 Mechanical Ventilator 01/06/19 04:00 98.1 83 24 110/63 (79) 100 01/06/19 04:00 35 01/06/19 03:38 89 16 35 01/06/19 03:22 76 01/06/19 01:00 83 18 35 01/06/19 00:43 81 16 35 01/06/19 00:00 97.9 79 22 85/51 (62) 99 01/06/19 00:00 Mechanical Ventilator 01/05/19 23:45 80 01/05/19 23:15 81 16 35 01/05/19 21:13 86 18 35 I&O Intake and Output 01/05/19 01/06/19 19:00 07:00 Intake Total 1020 ml 1155.000 ml Output Total 810 ml 350 ml Balance 210 ml 805.000 ml Intake Free Water 300 ml 60 ml IV Total 495.000 ml Tube Feeding 720 ml 600 ml Output Urine Total 750 ml 350 ml Other 60 ml # Voids 1 # Bowel Movements 7 Dressing: saturated Wound: other Drains: other Cardiovascular: RSR Respiratory: clear Abdomen: soft, non-tender, present bowel sounds, other Extremities: no cyanosis Laboratory Tests Test 01/06/19 04:00 White Blood Count 12.0 K/UL (4.8-10.8) H Red Blood Count 3.29 M/UL (4.70-6.10) L Hemoglobin 9.1 G/DL (14.2-18.0) L Hematocrit 28.5 % (42.0-52.0) L Mean Corpuscular Volume 87 FL (80-99) Mean Corpuscular Hemoglobin 27.6 PG (27.0-31.0) Mean Corpuscular Hemoglobin Concent 31.9 G/DL (32.0-36.0) L Red Cell Distribution Width 15.4 % (11.6-14.8) H Platelet Count 430 K/UL (150-450) Mean Platelet Volume 6.8 FL (6.5-10.1) Neutrophils (%) (Auto) 73.8 % (45.0-75.0) Lymphocytes (%) (Auto) 18.0 % (20.0-45.0) L Monocytes (%) (Auto) 6.0 % (1.0-10.0) Eosinophils (%) (Auto) 1.7 % (0.0-3.0) Basophils (%) (Auto) 0.6 % (0.0-2.0) Sodium Level 138 MMOL/L (136-145) Potassium Level 4.4 MMOL/L (3.5-5.1) Chloride Level 106 MMOL/L (98-107) Carbon Dioxide Level 25 MMOL/L (21-32) Anion Gap 7 mmol/L (5-15) Blood Urea Nitrogen 36 mg/dL (7-18) H Creatinine 1.3 MG/DL (0.55-1.30) Estimat Glomerular Filtration Rate 54.6 mL/min (>60) Glucose Level 86 MG/DL (74-106) Calcium Level 8.6 MG/DL (8.5-10.1) Plan Problems: (1) Severe sepsis (2) Leukocytosis (3) Elevated lactic acid level (4) Right lower lobe pneumonia (5) Contracture of multiple joints (6) GT SITE LEAKING (7) Psychosis (8) Severe protein-calorie malnutrition Assessment & Plan: Non-blanchable erythema without fluctuance /induration L elbow. R elbow resolved and is pink and blanchable. Thoracic spine resolved and is pink and blanchable.Sacral area and bilat hips are pink and blanchable. Non- blanchable erythema without fluctuance or induration noted to R hallux (L)0.5cm x (W)1.5cm. Periwound is pink and blanchable.Non-blanchable erythema noted to medial/lateralR foot (L)1.2cm x (W)0.9cm. Periwound pink and blanchable. Non- blanchable erythema without induration or fluctuance Lateral malleolus(L)0.8cm x (W)0.7cm.Periwound pink and blanchable. Non-blanchable erythema without induration or fluctuance lateral/medial L foot. Periwound is pink and blanchable. L lateral malleolus resolved and is pink and blanchable.R hallux pink and blanchable. No new skin concerns noted. All wound prevention protocols continued as implemented. Pt has an APM/RENO mattress overlay and observed positioned with pillow including off-loading of heels with pillow. (9) Feeding by G-tube (10) Respiratory failure, [id number] (11) Anemia (12) Chronic respiratory failure (13) Septic shock (14) Esophagitis (15) Hypothyroidism (16) Aspiration pneumonia (17) Pyelonephritis (18) C. difficile colitis (19) Malfunction of gastrostomy tube Assessment & Plan: patient pulls tube intermittently now has larger wound / tube site now has abnormal wound around tube from leaking GI will monitor tube and leak for now will apply silver nitrate to wound to allow for healing will follow wound to ensure healing may need large feeding tube new dressings applied and tube tightened. will monitor. will discuss with GI for larger tube and possible tube stitch thank you (20) Acute encephalopathy (21) MDR Acinetobacter baumannii infection (22) Severe erosive esophagitis (23) Upper GI bleed (24) Alzheimer's dementia (25) Hypokalemia (26) Acute renal failure Quirino Bernard Jan 06, 2019 20:31
[2019-01-07] VITALS: BP 142/57
[2019-01-07 04:00] VITALS: BP 123/54
[2019-01-07 04:19] LABS: BASOPHILS % (AUTO) 0.7 % (0.0-2.0); EOSINOPHILS % (AUTO) 6.5 % (0.0-3.0); HEMATOCRIT 27.5 % (42.0-52.0); HEMOGLOBIN 8.9 G/DL (14.2-18.0); LYMPHOCYTES % (AUTO) 13.9 % (20.0-45.0); MEAN CORPUSCULAR VOLUME 86 FL (80-99); MONOCYTES % (AUTO) 8.9 % (1.0-10.0); PLATELET COUNT 375 K/UL (150-450); RED BLOOD COUNT 3.19 M/UL (4.70-6.10); RED CELL DISTRIBUTION WIDTH 15.6 % (11.6-14.8); WHITE BLOOD COUNT 10.7 K/UL (4.8-10.8)
[2019-01-07 04:44] LABS: PHOSPHORUS 2.4 MG/DL (2.5-4.9)
[2019-01-07 04:46] LABS: ALANINE AMINOTRANSFERASE 46 U/L (12-78); ALBUMIN/GLOBULIN RATIO 0.4 (1.0-2.7); ALKALINE PHOSPHATASE 211 U/L (46-116); ANION GAP 7 mmol/L (5-15); ASPARTATE AMINO TRANSFERASE 42 U/L (15-37); BILIRUBIN,TOTAL 0.3 MG/DL (0.2-1.0); BLOOD UREA NITROGEN 26 mg/dL (7-18); CALCIUM 8.4 MG/DL (8.5-10.1); CARBON DIOXIDE 25 MMOL/L (21-32); CHLORIDE 103 MMOL/L (98-107); CREATININE 1.1 MG/DL (0.55-1.30); POTASSIUM 4.4 MMOL/L (3.5-5.1); SODIUM 135 MMOL/L (136-145)
[2019-01-07] MEDS: Meropenem 1gm in NS 55ml IVPB SCH ×2 (06:04→13:48)
[2019-01-07] MEDS: Sucralfate 1gm tab GT SCH ×2 (06:04→12:31)
--- NOTE | 2019-01-07 07:00 | NUR ---
RESPIRATORY NOTE: Received Patient on Vent ACVC RR 16, VT 600, FIO2 35%, PEEP +5. Patient has a tracheostomy Portex 8, secured with trache ties. Breath sounds reveal bilateral rhonchi. Patient obtundent lying in bed. Agitation with suction. Alarms on and audible. Vent plugged into red outlet. Will continue to monitor throughout the day.
--- NOTE | 2019-01-07 07:24 | NUR ---
HAND-OFF: Report given to Jeannie Frye RN. Patient is asleep and shows no signs of distress.
--- NOTE | 2019-01-07 07:58 | NUR ---
NURSE NOTES: received pt in the bed, obtunded, vent dependent, vital signs stable, no co pain, no SOB, skin warm and dry to touch, condom catheter with yellow urine, PICC line on RT upper arm, dressing dry and intact, tolerate GT feeding well, bed in low position, HOB elevated.
[2019-01-07 08:00] VITALS: BP 134/73
[2019-01-07] MEDS: Fluconazole 100mg tab GT SCH (08:14)
[2019-01-07] MEDS: Heparin 5000 units/ml inj SUBQ SCH (08:15)
--- NOTE | 2019-01-07 09:10 | General Progress Note ---
Assessment/Plan Status: stable, progressing Assessment/Plan: (1) Severe protein-calorie malnutrition (2) GT SITE LEAKING (3) Anemia (4) Esophagitis (5) Upper GI bleed (6) Malfunction of gastrostomy tube Plan GT has been changed yesterday and now is working well wound care consult appreciated. Monitor H&H, as needed transfusions PPI twice daily GTF follow labs Subjective ROS Limited/Unobtainable: No Allergies: Coded Allergies: NO KNOWN DRUG ALLERGIES (Verified Allergy, Unknown, 09/11/16) Objective Last 24 Hour Vital Signs Date Time Temp Pulse Resp B/P (MAP) Pulse Ox O2 Delivery O2 Flow Rate FiO2 01/07/19 08:59 78 20 35 01/07/19 08:00 98.1 82 20 134/73 (93) 100 01/07/19 08:00 35 01/07/19 07:20 84 17 35 01/07/19 04:59 93 20 35 01/07/19 04:12 87 01/07/19 04:00 98.2 72 20 123/54 (77) 95 01/07/19 04:00 35 01/07/19 04:00 Mechanical Ventilator 01/07/19 03:15 103 22 35 01/07/19 01:03 99 18 35 01/07/19 00:00 98.8 88 19 142/57 (85) 99 01/07/19 00:00 Mechanical Ventilator 01/06/19 23:41 83 01/06/19 22:45 79 16 35 01/06/19 21:12 87 23 35 01/06/19 20:00 Mechanical Ventilator 01/06/19 20:00 35 01/06/19 20:00 98.2 80 17 139/69 (92) 98 01/06/19 19:26 82 01/06/19 19:10 82 18 35 01/06/19 17:15 80 20 35 01/06/19 16:00 82 01/06/19 16:00 Mechanical Ventilator 01/06/19 16:00 35 01/06/19 16:00 98.1 81 20 143/76 (98) 99 01/06/19 14:38 82 19 35 01/06/19 13:21 86 17 35 01/06/19 12:00 98.1 78 18 139/75 (96) 94 01/06/19 12:00 35 01/06/19 12:00 Mechanical Ventilator 01/06/19 12:00 80 01/06/19 10:59 76 20 35 01/06/19 09:27 78 22 35 Intake and Output 01/06/19 01/07/19 18:59 06:59 Intake Total 1039 ml 870 ml Output Total 475 ml 1000 ml Balance 564 ml -130 ml Intake Free Water 150 ml 100 ml IV Total 169 ml 110 ml Tube Feeding 720 ml 660 ml Output Urine Total 425 ml 1000 ml Other 50 ml # Bowel Movements 1 1 Laboratory Tests 01/07/19 04:00: White Blood Count 10.7, Red Blood Count 3.19L, Hemoglobin 8.9L, Hematocrit 27.5L , Mean Corpuscular Volume 86, Mean Corpuscular Hemoglobin 27.9, Mean Corpuscular Hemoglobin Concent 32.3, Red Cell Distribution Width 15.6H, Platelet Count 375, Mean Platelet Volume 6.7, Neutrophils (%) (Auto) 70.0, Lymphocytes (%) (Auto) 13.9L, Monocytes (%) (Auto) 8.9, Eosinophils (%) (Auto) 6.5H, Basophils (%) (Auto) 0.7, Erythrocyte Sedimentation Rate 51H, Sodium Level 135L, Potassium Level 4.4, Chloride Level 103, Carbon Dioxide Level 25, Anion Gap 7, Blood Urea Nitrogen 26H, Creatinine 1.1, Estimat Glomerular Filtration Rate > 60, Glucose Level 89, Calcium Level 8.4L, Phosphorus Level 2.4L, Magnesium Level 1.9, Total Bilirubin 0.3, Aspartate Amino Transf (AST/SGOT ) 42H, Alanine Aminotransferase (ALT/SGPT) 46, Alkaline Phosphatase 211H, C- Reactive Protein, Quantitative 4.1H, Total Protein 6.5, Albumin 2.0L, Globulin 4.5, Albumin/Globulin Ratio 0.4L, Random Amikacin Level 19.0 Height (Feet): 5 Height (Inches): 10.00 Weight (Pounds): 155 General Appearance: no apparent distress EENT: normal ENT inspection Neck: supple Cardiovascular: normal rate Respiratory/Chest: decreased breath sounds Abdomen: normal bowel sounds, non tender, soft Extremities: non-tender Vitaliy Wilson MD Jan 07, 2019 09:10
--- NOTE | 2019-01-07 11:15 | NUR ---
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 LEUKOCYTOSIS VS: BP 134/73, P 93, T 98.1, RR 20, SpO2 100 on VENT FiO2 35 RBC 3.19, H/H 8.9/27.5, nA 135, BUN 26 IS:MEROPENEM 55mL SYNTHROID 75mcg HEPARIN SUBQ SUCRALFATE 1gm PREVACID 30mg SDU STATUS
--- NOTE | 2019-01-07 11:53 | NUR ---
*-*INSURANCE *-* UPDATED CLINICALS AND REVIEWS HAVE BEEN FAXED TO: [facility]: JOSE Soares P- [phone] F- [phone]...REVIEW/CLINICAL
--- NOTE | 2019-01-07 11:55 | Pulmonolgy Critical Care Note ---
Critical Care - Asmt/Plan Problems: (1) Respiratory failure, [id number] (2) Aspiration pneumonia (3) Severe sepsis (4) Anemia (5) Psychosis (6) Hypothyroidism (7) Severe protein-calorie malnutrition (8) Feeding by G-tube Respiratory: monitor respiratory rate, adjust FIO2, CXR Cardiac: continue to monitor HR/BP Renal: F/U I&O, check electrolytes Infectious Disease: check cultures Gastrointestinal: continue feedings/current rate Endocrine: monitor blood sugar, check HgA1C, continue sliding scale insulin Hematologic: transfuse if hgb<8.5 Neurologic: PRN Ativan, PRN Morphine, keep patient comfortable Affect: PRN ativan Time Spent (Minutes): 40 Notes Reviewed: cardio, 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 with: consultants, protective services case workerregional merchandising manager - Objective Last 24 Hour Vital Signs Date Time Temp Pulse Resp B/P (MAP) Pulse Ox O2 Delivery O2 Flow Rate FiO2 01/07/19 10:47 77 17 35 01/07/19 08:59 78 20 35 01/07/19 08:00 82 01/07/19 08:00 98.1 82 20 134/73 (93) 100 01/07/19 08:00 Mechanical Ventilator 01/07/19 08:00 35 01/07/19 07:20 84 17 35 01/07/19 04:59 93 20 35 01/07/19 04:12 87 01/07/19 04:00 98.2 72 20 123/54 (77) 95 01/07/19 04:00 35 01/07/19 04:00 Mechanical Ventilator 01/07/19 03:15 103 22 35 01/07/19 01:03 99 18 35 01/07/19 00:00 98.8 88 19 142/57 (85) 99 01/07/19 00:00 Mechanical Ventilator 01/06/19 23:41 83 01/06/19 22:45 79 16 35 01/06/19 21:12 87 23 35 01/06/19 20:00 Mechanical Ventilator 01/06/19 20:00 35 01/06/19 20:00 98.2 80 17 139/69 (92) 98 01/06/19 19:26 82 01/06/19 19:10 82 18 35 01/06/19 17:15 80 20 35 01/06/19 16:00 82 01/06/19 16:00 Mechanical Ventilator 01/06/19 16:00 35 01/06/19 16:00 98.1 81 20 143/76 (98) 99 01/06/19 14:38 82 19 35 01/06/19 13:21 86 17 35 01/06/19 12:00 98.1 78 18 139/75 (96) 94 01/06/19 12:00 35 01/06/19 12:00 Mechanical Ventilator 01/06/19 12:00 80 Status: awake Condition: critical HEENT: atraumatic, normocephalic Neck: full ROM Lungs: clear Heart: HR/BP stable, regular Abdomen: soft, active bowel sounds, feeding tube Extremities: edema Critical Care - Subjective ROS Limited/Unobtainable: Yes Condition: critical EKG Rhythm: Sinus Rhythm FI02: 35 Vent Support Breath Rate: 16 Vent Support Mode: AC Vent Tidal Volume: 600 Sputum Amount: Small PEEP: 5.0 PIP: 21 Tube Feeding Amount: 60 I&O: Intake and Output 01/06/19 01/07/19 18:59 06:59 Intake Total 1039 ml 870 ml Output Total 475 ml 1000 ml Balance 564 ml -130 ml Intake Free Water 150 ml 100 ml IV Total 169 ml 110 ml Tube Feeding 720 ml 660 ml Output Urine Total 425 ml 1000 ml Other 50 ml # Bowel Movements 1 1 Labs: Laboratory Tests Test 01/07/19 04:00 White Blood Count 10.7 K/UL (4.8-10.8) Red Blood Count 3.19 M/UL (4.70-6.10) L Hemoglobin 8.9 G/DL (14.2-18.0) L Hematocrit 27.5 % (42.0-52.0) L Mean Corpuscular Volume 86 FL (80-99) Mean Corpuscular Hemoglobin 27.9 PG (27.0-31.0) Mean Corpuscular Hemoglobin Concent 32.3 G/DL (32.0-36.0) Red Cell Distribution Width 15.6 % (11.6-14.8) H Platelet Count 375 K/UL (150-450) Mean Platelet Volume 6.7 FL (6.5-10.1) Neutrophils (%) (Auto) 70.0 % (45.0-75.0) Lymphocytes (%) (Auto) 13.9 % (20.0-45.0) L Monocytes (%) (Auto) 8.9 % (1.0-10.0) Eosinophils (%) (Auto) 6.5 % (0.0-3.0) H Basophils (%) (Auto) 0.7 % (0.0-2.0) Erythrocyte Sedimentation Rate 51 MM/HR (0-20) H Sodium Level 135 MMOL/L (136-145) L Potassium Level 4.4 MMOL/L (3.5-5.1) Chloride Level 103 MMOL/L (98-107) Carbon Dioxide Level 25 MMOL/L (21-32) Anion Gap 7 mmol/L (5-15) Blood Urea Nitrogen 26 mg/dL (7-18) H Creatinine 1.1 MG/DL (0.55-1.30) Estimat Glomerular Filtration Rate > 60 mL/min (>60) Glucose Level 89 MG/DL (74-106) Calcium Level 8.4 MG/DL (8.5-10.1) L Phosphorus Level 2.4 MG/DL (2.5-4.9) L Magnesium Level 1.9 MG/DL (1.8-2.4) Total Bilirubin 0.3 MG/DL (0.2-1.0) Aspartate Amino Transf (AST/SGOT) 42 U/L (15-37) H Alanine Aminotransferase (ALT/SGPT) 46 U/L (12-78) Alkaline Phosphatase 211 U/L (46-116) H C-Reactive Protein, Quantitative 4.1 mg/dL (0.00-0.90) H Total Protein 6.5 G/DL (6.4-8.2) Albumin 2.0 G/DL (3.4-5.0) L Globulin 4.5 g/dL Albumin/Globulin Ratio 0.4 (1.0-2.7) L Random Amikacin Level 19.0 ug/mL Huma Keating MD Jan 07, 2019 11:55
[2019-01-07 12:00] VITALS: BP 108/57
--- NOTE | 2019-01-07 14:15 | Surgery Progress Note ---
Surgery Progress Note Subjective Additional Comments feeding tube replaced by GI. minimal leak now. wound improving Objective Last 24 Hour Vital Signs Date Time Temp Pulse Resp B/P (MAP) Pulse Ox O2 Delivery O2 Flow Rate FiO2 01/07/19 13:26 86 25 Mechanical Ventilator 35 01/07/19 13:24 86 25 35 01/07/19 12:00 97.9 76 16 108/57 (74) 100 01/07/19 12:00 Mechanical Ventilator 01/07/19 12:00 35 01/07/19 10:47 77 17 35 01/07/19 08:59 78 20 35 01/07/19 08:00 82 01/07/19 08:00 98.1 82 20 134/73 (93) 100 01/07/19 08:00 Mechanical Ventilator 01/07/19 08:00 35 01/07/19 07:20 84 17 35 01/07/19 04:59 93 20 35 01/07/19 04:12 87 01/07/19 04:00 98.2 72 20 123/54 (77) 95 01/07/19 04:00 35 01/07/19 04:00 Mechanical Ventilator 01/07/19 03:15 103 22 35 01/07/19 01:03 99 18 35 01/07/19 00:00 98.8 88 19 142/57 (85) 99 01/07/19 00:00 Mechanical Ventilator 01/06/19 23:41 83 01/06/19 22:45 79 16 35 01/06/19 21:12 87 23 35 01/06/19 20:00 Mechanical Ventilator 01/06/19 20:00 35 01/06/19 20:00 98.2 80 17 139/69 (92) 98 01/06/19 19:26 82 01/06/19 19:10 82 18 35 01/06/19 17:15 80 20 35 01/06/19 16:00 82 01/06/19 16:00 Mechanical Ventilator 01/06/19 16:00 35 01/06/19 16:00 98.1 81 20 143/76 (98) 99 01/06/19 14:38 82 19 35 I&O Intake and Output 01/06/19 01/07/19 19:00 07:00 Intake Total 1099 ml 810 ml Output Total 475 ml 1000 ml Balance 624 ml -190 ml Intake Free Water 150 ml 100 ml IV Total 169 ml 110 ml Tube Feeding 780 ml 600 ml Output Urine Total 425 ml 1000 ml Other 50 ml # Bowel Movements 1 1 Dressing: dry Wound: clean Drains: other Cardiovascular: RSR Respiratory: clear Abdomen: soft, flat, present bowel sounds, non-distended Extremities: no tenderness, no cyanosis Laboratory Tests Test 01/07/19 04:00 White Blood Count 10.7 K/UL (4.8-10.8) Red Blood Count 3.19 M/UL (4.70-6.10) L Hemoglobin 8.9 G/DL (14.2-18.0) L Hematocrit 27.5 % (42.0-52.0) L Mean Corpuscular Volume 86 FL (80-99) Mean Corpuscular Hemoglobin 27.9 PG (27.0-31.0) Mean Corpuscular Hemoglobin Concent 32.3 G/DL (32.0-36.0) Red Cell Distribution Width 15.6 % (11.6-14.8) H Platelet Count 375 K/UL (150-450) Mean Platelet Volume 6.7 FL (6.5-10.1) Neutrophils (%) (Auto) 70.0 % (45.0-75.0) Lymphocytes (%) (Auto) 13.9 % (20.0-45.0) L Monocytes (%) (Auto) 8.9 % (1.0-10.0) Eosinophils (%) (Auto) 6.5 % (0.0-3.0) H Basophils (%) (Auto) 0.7 % (0.0-2.0) Erythrocyte Sedimentation Rate 51 MM/HR (0-20) H Sodium Level 135 MMOL/L (136-145) L Potassium Level 4.4 MMOL/L (3.5-5.1) Chloride Level 103 MMOL/L (98-107) Carbon Dioxide Level 25 MMOL/L (21-32) Anion Gap 7 mmol/L (5-15) Blood Urea Nitrogen 26 mg/dL (7-18) H Creatinine 1.1 MG/DL (0.55-1.30) Estimat Glomerular Filtration Rate > 60 mL/min (>60) Glucose Level 89 MG/DL (74-106) Calcium Level 8.4 MG/DL (8.5-10.1) L Phosphorus Level 2.4 MG/DL (2.5-4.9) L Magnesium Level 1.9 MG/DL (1.8-2.4) Total Bilirubin 0.3 MG/DL (0.2-1.0) Aspartate Amino Transf (AST/SGOT) 42 U/L (15-37) H Alanine Aminotransferase (ALT/SGPT) 46 U/L (12-78) Alkaline Phosphatase 211 U/L (46-116) H C-Reactive Protein, Quantitative 4.1 mg/dL (0.00-0.90) H Total Protein 6.5 G/DL (6.4-8.2) Albumin 2.0 G/DL (3.4-5.0) L Globulin 4.5 g/dL Albumin/Globulin Ratio 0.4 (1.0-2.7) L Random Amikacin Level 19.0 ug/mL Plan Problems: (1) Severe sepsis (2) Leukocytosis (3) Elevated lactic acid level (4) Right lower lobe pneumonia (5) Contracture of multiple joints (6) GT SITE LEAKING (7) Psychosis (8) Severe protein-calorie malnutrition Assessment & Plan: Non-blanchable erythema without fluctuance /induration L elbow. R elbow resolved and is pink and blanchable. Thoracic spine resolved and is pink and blanchable.Sacral area and bilat hips are pink and blanchable. Non- blanchable erythema without fluctuance or induration noted to R hallux (L)0.5cm x (W)1.5cm. Periwound is pink and blanchable.Non-blanchable erythema noted to medial/lateralR foot (L)1.2cm x (W)0.9cm. Periwound pink and blanchable. Non- blanchable erythema without induration or fluctuance Lateral malleolus(L)0.8cm x (W)0.7cm.Periwound pink and blanchable. Non-blanchable erythema without induration or fluctuance lateral/medial L foot. Periwound is pink and blanchable. L lateral malleolus resolved and is pink and blanchable.R hallux pink and blanchable. No new skin concerns noted. All wound prevention protocols continued as implemented. Pt has an APM/RENO mattress overlay and observed positioned with pillow including off-loading of heels with pillow. (9) Feeding by G-tube (10) Respiratory failure, [id number] (11) Anemia (12) Chronic respiratory failure (13) Septic shock (14) Esophagitis (15) Hypothyroidism (16) Aspiration pneumonia (17) Pyelonephritis (18) C. 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
--- NOTE | 2019-01-07 14:23 | General Progress Note ---
Assessment/Plan Problem List: (1) Severe sepsis ICD Codes: A41.9 - Sepsis, unspecified organism; R65.20 - Severe sepsis without septic shock SNOMED: 18186172 (2) Severe protein-calorie malnutrition ICD Codes: E43 - Unspecified severe protein-calorie malnutrition SNOMED: 121879778 (3) Feeding by G-tube ICD Codes: Z93.1 - Gastrostomy status SNOMED: 692067753, 178001766 (4) Respiratory failure, [id number] ICD Codes: J96.20 - Respiratory failure, [id number] SNOMED: 53640419 (5) Anemia ICD Codes: D64.9 - Anemia, unspecified SNOMED: 198863332 (6) Aspiration pneumonia ICD Codes: J69.0 - Pneumonitis due to inhalation of food and vomit SNOMED: 036951464 (7) Acute renal failure ICD Codes: N17.9 - Acute kidney failure, unspecified SNOMED: 61026955 Status: stable, progressing Assessment/Plan: vent abx dc if clear Subjective Constitutional: Reports: weakness Allergies: Coded Allergies: NO KNOWN DRUG ALLERGIES (Verified Allergy, Unknown, 09/11/16) All Systems: reviewed and negative except above Subjective trach vent altered Objective Last 24 Hour Vital Signs Date Time Temp Pulse Resp B/P (MAP) Pulse Ox O2 Delivery O2 Flow Rate FiO2 01/07/19 13:26 86 25 Mechanical Ventilator 35 01/07/19 13:24 86 25 35 01/07/19 12:00 97.9 76 16 108/57 (74) 100 01/07/19 12:00 Mechanical Ventilator 01/07/19 12:00 35 01/07/19 10:47 77 17 35 01/07/19 08:59 78 20 35 01/07/19 08:00 82 01/07/19 08:00 98.1 82 20 134/73 (93) 100 01/07/19 08:00 Mechanical Ventilator 01/07/19 08:00 35 01/07/19 07:20 84 17 35 01/07/19 04:59 93 20 35 01/07/19 04:12 87 01/07/19 04:00 98.2 72 20 123/54 (77) 95 01/07/19 04:00 35 01/07/19 04:00 Mechanical Ventilator 01/07/19 03:15 103 22 35 01/07/19 01:03 99 18 35 01/07/19 00:00 98.8 88 19 142/57 (85) 99 01/07/19 00:00 Mechanical Ventilator 01/06/19 23:41 83 01/06/19 22:45 79 16 35 01/06/19 21:12 87 23 35 01/06/19 20:00 Mechanical Ventilator 01/06/19 20:00 35 01/06/19 20:00 98.2 80 17 139/69 (92) 98 01/06/19 19:26 82 01/06/19 19:10 82 18 35 01/06/19 17:15 80 20 35 01/06/19 16:00 82 01/06/19 16:00 Mechanical Ventilator 01/06/19 16:00 35 01/06/19 16:00 98.1 81 20 143/76 (98) 99 01/06/19 14:38 82 19 35 Intake and Output 01/06/19 01/07/19 19:00 07:00 Intake Total 1099 ml 810 ml Output Total 475 ml 1000 ml Balance 624 ml -190 ml Intake Free Water 150 ml 100 ml IV Total 169 ml 110 ml Tube Feeding 780 ml 600 ml Output Urine Total 425 ml 1000 ml Other 50 ml # Bowel Movements 1 1 Laboratory Tests 01/07/19 04:00: White Blood Count 10.7, Red Blood Count 3.19L, Hemoglobin 8.9L, Hematocrit 27.5L , Mean Corpuscular Volume 86, Mean Corpuscular Hemoglobin 27.9, Mean Corpuscular Hemoglobin Concent 32.3, Red Cell Distribution Width 15.6H, Platelet Count 375, Mean Platelet Volume 6.7, Neutrophils (%) (Auto) 70.0, Lymphocytes (%) (Auto) 13.9L, Monocytes (%) (Auto) 8.9, Eosinophils (%) (Auto) 6.5H, Basophils (%) (Auto) 0.7, Erythrocyte Sedimentation Rate 51H, Sodium Level 135L, Potassium Level 4.4, Chloride Level 103, Carbon Dioxide Level 25, Anion Gap 7, Blood Urea Nitrogen 26H, Creatinine 1.1, Estimat Glomerular Filtration Rate > 60, Glucose Level 89, Calcium Level 8.4L, Phosphorus Level 2.4L, Magnesium Level 1.9, Total Bilirubin 0.3, Aspartate Amino Transf (AST/SGOT ) 42H, Alanine Aminotransferase (ALT/SGPT) 46, Alkaline Phosphatase 211H, C- Reactive Protein, Quantitative 4.1H, Total Protein 6.5, Albumin 2.0L, Globulin 4.5, Albumin/Globulin Ratio 0.4L, Random Amikacin Level 19.0 Height (Feet): 5 Height (Inches): 10.00 Weight (Pounds): 155 General Appearance: lethargic EENT: normal ENT inspection Neck: normal alignment Cardiovascular: normal peripheral pulses, normal rate, regular rhythm Respiratory/Chest: chest wall non-tender, lungs clear, normal breath sounds Abdomen: normal bowel sounds, non tender, soft Extremities: normal inspection Edema: no edema noted Arm (L), no edema noted Arm (R), no edema noted Leg (L), no edema noted Leg (R), no edema noted Pedal (L), no edema noted Pedal (R), no edema noted Generalized Neurologic: motor weakness Skin: normal pigmentation, warm/dry Gato Viveros DO Jan 07, 2019 14:23
[2019-01-07 16:00] VITALS: BP 133/72
--- NOTE | 2019-01-07 16:23 | NUR ---
DISCHARGE PLANNING DISCHARGE ORDER NOTED Patient has been accepted to; [facility] [address] [facility] [place] [address] Bed:125-B Skilled for Nurse to Nurse report [facility] ETA for transportation: 16:45 DCP unable to leave voicemail message for Public Guardian , about current discharge plans.
--- NOTE | 2019-01-07 16:50 | Infectious Diseases Prog Note ---
Assessment/Plan Assessment/Plan Assessment: Fever; Sp -01/02 Bcx Leukocytosis; mild, Sp - PEG site with purulent discharge 12/18/18 Cx growing KPC K pna (S Tigecycline), ESBL E. coli (S Tigecycline) and CoNS -Infected obstructive ureteral stone w/ adjacent abscess and moderate L hydronephrosis -01/03 UCx : MDR -PSA ( source ?external / condom Cath) -12/31 SP Successful placement of left nephrostomy catheter, with aspiration of approximately 30 mL of james pus. A specimen was sent to the lab -CX <1+1 ESBL P. mirabilis -12/25 u/a wbc 15-20, nit neg, leuk +3; ucx <10k GNR (work up not done), 50 -60k C. tropicalis -12/24 CT abd/p: : Positive for 18 x 12 mm calculus within the proximal left ureter, approximately 5 cm distal to ureteropelvic junction. This results in moderate left hydronephrosis. Thinning of the cortex suggests that this is likely long- standing Abnormal appearance to the left proximal ureteral and renal pelvic urothelium as well as of the renal parenchyma, consistent with nephritis, pyelitis, and ureter right is. Multiloculated fluid collection with rim enhancement anterior to the proximal ureter adjacent to the stone. This is probably an abscess related to the stone and a pyelitis. Unusually, however, it appears largely anterior to Gerota's fascia rather than within it. Bladder wall thickening, suggests cystitis or chronic bladder outlet obstruction. Given the asymmetry of the bladder wall thickening, the possibility of tumor should also be considered. Nonobstructive bilateral intrarenal calculi, new/increased since prior exam of 01/19/2016. Rectal distention with stool. Mild rectal wall thickening. Findings could indicate fecal impaction with associated stercoral proctitis. However, findings are somewhat similar to the prior 2016 exam and could just be baseline for this patient. Gastrostomy in good position. No apparent complication associated with such. Marked laxity of the central lower abdominal wall musculature resulting in anterior protuberance of the abdomen and contents, without definite james herniation or obstruction. Probable granulomatous calcification within the mediastinum -CXR: No acute process. Right basilar atelectasis -Sp cx 12/09/18 E.coli (ESBL), P.a. 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 diff Dysphagia s/p G-tube Anemia. CVA/TIA w/ hemiplegia functional quadriplegia chronic encephalopathy CAD CHF Dm2 GIB s/p multiple EGDs in the past hx of severe esophagitis schizoaffective disease prison resident multiple admissions VRE colonization Plan: - Cont Amicakin d# 2/ 7 and Merrem d # 2 and DC , upon DC will change to Ertapenem 1g daily for total of 4 weeks for kidney abscess -Cont fluconazole # 7/7-10 in the setting of funguria with infected stone and perinephric abscess 01/06 Vancomcyin and tigecycline #14 for PEG site infection - f/u cx -f/u Bcx x2 -URo f/u: not candidate for surgical intervention given chronicity, comorbidities and loss of function of L kidney - 12/23/18 SP Zosyn #11, inhaled colistin #8 for MDR P.a.for sputum organism and Fluconazole #7 for Yeast it the urine - 12/12 S/P Vancomycin and Cefepime #5 -12/08 SP Levaquin x1 -11/06 SP Amikacin #6 -11/01 SP Meropenem #4 -10/29 SP IV Vanco #2, Cefepime #2 and Tigecycline #1 -10/28 SP LEavquin x1 -10/09 SP Ertapenem #5 - 10/04 SP Meropenem #2 -10/03/18 SP IV Vancomycin #2 and Cefepime #2 -08/09/18 SP Bactrim #7 -08/03 SP Vancomycin and Cefepime #3 -08/01/18 SP Ceftriaxone x1 -Monitor CBC/CMP, temperatures -Peg/trach care -aspiration precautions Subjective Allergies: Coded Allergies: NO KNOWN DRUG ALLERGIES (Verified Allergy, Unknown, 09/11/16) Subjective DC today to SNF non verbal Objective Vital Signs Last 24 Hour Vital Signs Date Time Temp Pulse Resp B/P (MAP) Pulse Ox O2 Delivery O2 Flow Rate FiO2 01/07/19 16:00 35 01/07/19 16:00 98.2 89 26 133/72 (92) 100 01/07/19 16:00 Mechanical Ventilator 01/07/19 15:06 88 19 35 01/07/19 13:26 86 25 Mechanical Ventilator 35 01/07/19 13:24 86 25 35 01/07/19 12:00 97.9 76 16 108/57 (74) 100 01/07/19 12:00 80 01/07/19 12:00 Mechanical Ventilator 01/07/19 12:00 35 01/07/19 10:47 77 17 35 01/07/19 08:59 78 20 35 01/07/19 08:00 82 01/07/19 08:00 98.1 82 20 134/73 (93) 100 01/07/19 08:00 Mechanical Ventilator 01/07/19 08:00 35 01/07/19 07:20 84 17 35 01/07/19 04:59 93 20 35 01/07/19 04:12 87 01/07/19 04:00 98.2 72 20 123/54 (77) 95 01/07/19 04:00 35 01/07/19 04:00 Mechanical Ventilator 01/07/19 03:15 103 22 35 01/07/19 01:03 99 18 35 01/07/19 00:00 98.8 88 19 142/57 (85) 99 01/07/19 00:00 Mechanical Ventilator 01/06/19 23:41 83 01/06/19 22:45 79 16 35 01/06/19 21:12 87 23 35 01/06/19 20:00 Mechanical Ventilator 01/06/19 20:00 35 01/06/19 20:00 98.2 80 17 139/69 (92) 98 01/06/19 19:26 82 01/06/19 19:10 82 18 35 01/06/19 17:15 80 20 35 Height (Feet): 5 Height (Inches): 10.00 Weight (Pounds): 155 HEENT: atraumatic Respiratory/Chest: normal breath sounds Cardiovascular: regular rhythm Abdomen: soft, non tender Laboratory Tests Test 01/07/19 04:00 White Blood Count 10.7 K/UL (4.8-10.8) Red Blood Count 3.19 M/UL (4.70-6.10) L Hemoglobin 8.9 G/DL (14.2-18.0) L Hematocrit 27.5 % (42.0-52.0) L Mean Corpuscular Volume 86 FL (80-99) Mean Corpuscular Hemoglobin 27.9 PG (27.0-31.0) Mean Corpuscular Hemoglobin Concent 32.3 G/DL (32.0-36.0) Red Cell Distribution Width 15.6 % (11.6-14.8) H Platelet Count 375 K/UL (150-450) Mean Platelet Volume 6.7 FL (6.5-10.1) Neutrophils (%) (Auto) 70.0 % (45.0-75.0) Lymphocytes (%) (Auto) 13.9 % (20.0-45.0) L Monocytes (%) (Auto) 8.9 % (1.0-10.0) Eosinophils (%) (Auto) 6.5 % (0.0-3.0) H Basophils (%) (Auto) 0.7 % (0.0-2.0) Erythrocyte Sedimentation Rate 51 MM/HR (0-20) H Sodium Level 135 MMOL/L (136-145) L Potassium Level 4.4 MMOL/L (3.5-5.1) Chloride Level 103 MMOL/L (98-107) Carbon Dioxide Level 25 MMOL/L (21-32) Anion Gap 7 mmol/L (5-15) Blood Urea Nitrogen 26 mg/dL (7-18) H Creatinine 1.1 MG/DL (0.55-1.30) Estimat Glomerular Filtration Rate > 60 mL/min (>60) Glucose Level 89 MG/DL (74-106) Calcium Level 8.4 MG/DL (8.5-10.1) L Phosphorus Level 2.4 MG/DL (2.5-4.9) L Magnesium Level 1.9 MG/DL (1.8-2.4) Total Bilirubin 0.3 MG/DL (0.2-1.0) Aspartate Amino Transf (AST/SGOT) 42 U/L (15-37) H Alanine Aminotransferase (ALT/SGPT) 46 U/L (12-78) Alkaline Phosphatase 211 U/L (46-116) H C-Reactive Protein, Quantitative 4.1 mg/dL (0.00-0.90) H Total Protein 6.5 G/DL (6.4-8.2) Albumin 2.0 G/DL (3.4-5.0) L Globulin 4.5 g/dL Albumin/Globulin Ratio 0.4 (1.0-2.7) L Random Amikacin Level 19.0 ug/mL Current Medications Medications (Trade) Dose Ordered Sig/Wanda Route PRN Reason Start Time Stop Time Status Last Admin Dose Admin Acetaminophen (Tylenol) 650 mg Q4H PRN GT Mild Pain/Temp > 100.5 12/15/18 10:45 01/14/19 10:44 01/05/19 16:30 Amikacin Protocol (Amikacin pharmacy to dose) 1 ea DAILY PRN MISC Per rx protocol 01/06/19 14:15 02/05/19 14:14 Amikacin Sulfate 1000 mg/Sodium Chloride 114 ml @ 228 mls/hr Q48H IV 01/08/19 16:00 01/13/19 15:59 Chlorhexidine Gluconate (Jasmin-Hex 2%) 1 applic DAILY@2000 TOPIC 12/11/18 20:00 01/10/19 19:59 01/06/19 20:12 Fluconazole (Diflucan) 200 mg DAILY GT 01/02/19 09:00 01/09/19 08:59 01/07/19 08:14 Heparin Sodium (Porcine) (Heparin 5000 units/ml) 5,000 units EVERY 12 HOURS SUBQ 12/08/18 21:00 01/07/19 20:59 01/07/19 08:15 Lansoprazole (Prevacid) 30 mg DAILY GT 12/18/18 09:00 01/17/19 08:59 01/07/19 08:13 Levothyroxine Sodium (Synthroid) 75 mcg Q24H GT 12/09/18 06:30 01/08/19 06:29 01/07/19 06:04 Meropenem 1 gm/ Sodium Chloride 55 ml @ 110 mls/hr Q8HR IVPB 01/05/19 15:00 01/10/19 14:59 01/07/19 13:48 Sucralfate (Carafate) 1 gm EVERY 6 HOURS GT 12/15/18 18:00 01/07/19 17:59 01/07/19 12:31 Cesario Daniels MD Jan 07, 2019 16:50
--- NOTE | 2019-01-07 18:22 | NUR ---
NURSE NOTES: pt discharge to [facility] as ordered by ambulance, condition stable, report given.
--- NOTE | 2019-01-08 11:43 | Discharge Summary ---
Discharge Summary Discharge Summary _ DATE OF ADMISSION: 12/08/2018 DATE OF DISCHARGE: 01/07/2019 DISCHARGED BY: REASON FOR ADMISSION: 68 years old male with chronic, ventilator dependent respiratory failure, tracheostomy, history of CVA, dysphagia, G-tube, history of C. difficile colitis , hypothyroidism, Alzheimer's dementia, severe esophagitis, history of GI bleeding, was sent from [facility] facility for evaluation due to alleged elevated white blood count. Upon evaluation vital signs were stable. Laboratory work-up revealed leukocytosis with WBC 18.3, hemoglobin 10.5, hematocrit 31.6, platelet count 579. Urinalysis revealed pyuria and occasional bacteria, +2 protein. Sodium 132. BUN 35, creatinine 1.3. Glucose 114. Lactic acid 2.2. Stable LFT. Troponin negative. pro BNP 309. EKG revealed sinus rhythm, no acute ischemic changes. Chest x-ray demonstrated atelectasis at right lung base In emergency department patient pancultured, started on IV hydration and empiric antibiotics and admitted to [facility] for further management. CONSULTANTS: pulmonary Dr. Keating ID specialist Dr. Daniels GI specialist Dr. Wilson surgery Dr. Bernard urologist Dr. Vazquez [facility] COURSE: Ventilator support and tracheostomy care provided. Pulmonary toilet provided. Baseline ABG was done . Ventilator settings titrated as needed. Patient was followed-up with chest x-ray. Venous duplex bilateral lower extremity revealed no evidence of acute DVT. Recanalized chronic thrombus noted in the left leg superficial femoral vein. DVT prophylaxis provided. Blood culture revealed 1 out of 4 Staph coag negative, likely contaminant. Sputum culture revealed E. coli ESBL , Pseudomonas MDR and Providencia. Patient undergone treatment for aspiration pneumonia , as per ID specialist recommendation. Repeated blood culture were negative. Urine culture revealed Tea. Stool for C. difficile was negative. PICC line was inserted for IV antibiotic. G tube site drainage revealed growth of Klebsiella Carbapenem resistant , E. coli ESBL and Staph coag negative. CT of the abdomen and pelvis demonstrated 18 x 12 mm calculus within the proximal left ureter, approximately 5 cm distal to ureteropelvic junction, result ing in moderate left hydronephrosis. Thinning of the cortex suggested that this was likely long-standing. Abnormal appearance to the left proximal ureteral and renal pelvic urothelium as well as of the renal parenchyma, consistent with nephritis, pyelitis, and ureteritis. Multiloculated fluid collection with rim enhancement anterior to the proximal ureter adjacent to the stone. Probably an abscess related to the stone and a pyelitis. Bladder wall thickening, suggesting cystitis or chronic bladder outlet obstruction. Given the asymmetry of the bladder wall thickening, the possibility of tumor should also be considered. Nonobstructive bilateral intrarenal calculi, new/increased since prior exam of 01/19/2016 Urologist seen and evaluated the patient. . Per urologist, patient had perinephric abscess with loss of renal function , secondary to large chronic ureteral stone. Unfortunately patient was not a surgical candidate given multiple comorbidities , severe contractures and chronic respiratory failure along with likely chronic status of ureteral stone. No significant salvageable renal function in affected side. Urologist recommended conservative management with IV antibiotics and drainage of perinephric abscess. Patient subsequently undergone on 12/31 placement of left nephrostomy due to obstructive uropathy by interventional radiology with drainage of about 30 ml of james pus. Culture revealed Proteus ESBL. Acid-fast smear was negative. Repeat blood culture on 01/02 were negative , and urine culture on 01/03 revealed Pseudomonas aeruginosa. Patient was on IV antibiotics in the hospital as per ID recommendation. Upon discharge antibiotic changed to ertapenem 1 g daily for total of 4 weeks treatment for kidney abscess. Inflammatory markers were followed , trending down as infection was controlled. CRP from 12.4 down to 4.1 , ESR from 110 down to 51. Hemoglobin and hematocrit were closely monitored with goal to keep hemoglobin above 7. Patient underwent transfusion of 2 units of packed red blood cells while in the hospital. Prior to discharge hemoglobin 8.9 hematocrit 27.5. Bowel regimen instituted. Levothyroxine was continued. Wound care provided for right lateral foot ulcer provided. Ulcer was not infected. Continue wound care at the facility. Protein supplements implemented in plan of care as per registered dietitian recommendation. Supportive care provided. Noted leaking G tube. Patient was pulling intermittently on G tube, subsequently stoma increased and started leaking. Surgeon and GI specialist followed. Surgeon placed silver nitrate around the wound of G-tube site. GI specialist changed G tube to a larger size , and it was working well. Wound care to the G-tube site was provided as per wound care nurse recommendation. GI prophylaxis with PPI twice a day provided. Strict aspiration/reflux precautions were maintained. Renal parameters and electrolytes were closely monitored. Electrolytes corrected as needed. BUN from 35 down to 26, creatinine from 1.3 down to 1.1. Sodium stable. Patient clinically stabilized and was ready for transfer to subacute [facility] facility for continuation of care. Continue IV antibiotics for total of 4 weeks . Continue wound care. FINAL DIAGNOSES: Severe sepsis Acute on chronic respiratory failure Aspiration pneumonia , status post treatment Infected obstructive ureteral stone with adjacent perinephric abscess and moderate left hydronephrosis Obstructive uropathy Hydronephrosis and suspected pyonephrosis Status post left nephrostomy placement and aspiration of perinephric abscess G-tube site infection with KPC , ESBL E. coli and Staph coag negative UTI with history of recurrent UTI Acute on chronic ventilator dependent respiratory failure Tracheostomy status Dysphasia , feeding by G-tube Malfunctioning G-tube History of C. difficile colitis Anemia History of GI bleeding due to severe esophagitis Hypothyroidism Right lateral foot ulcer - not infected History of CVA with hemiparesis Acute encephalopathy Psychosis Acute kidney injury Hyponatremia Severe protein calorie malnutrition DISCHARGE MEDICATIONS: List of medication was sent to accepting facility DISCHARGE INSTRUCTIONS: Patient was discharged to subacute [facility] facility. Follow up with medical doctor at the facility. I have been assigned to dictate discharge summary for this account. I was not involved in the patient's management. Amina Garcia NP January 08, 2019 11:43
--- NOTE | 2019-01-08 15:34 | NUR ---
*-*INSURANCE *-* DISCHARGE SUMMARY HAVE BEEN FAXED TO: [facility]: JOSE Soares P- [phone] F- [phone]...REVIEW/CLINICAL
[2019-01-08] MEDS ORDERED: Amikacin 1,000 MG in NS 110 ML IV SCH (16:00)
== END 2019-01-07 17:59 | DRG 870 ==
LOC: EDBD 13:25 → EMR 14:29 → EDBEDREQ 15:23 → 2W 15:29
PROC: 5A1955Z Respiratory Ventilation, Greater than 96 Consecutive Hours (ICD-10-PCS; principal; 2018-12-08)
PROC: 02HV33Z Insertion of Infusion Device into Superior Vena Cava, Percutaneous Approach (ICD-10-PCS; 2018-12-11)
PROC: B548ZZA Ultrasonography of Superior Vena Cava, Guidance (ICD-10-PCS; 2018-12-11)
PROC: 0T9130Z Drainage of Left Kidney with Drainage Device, Percutaneous Approach (ICD-10-PCS; 2018-12-31)
DX: A41.9 Sepsis, unspecified organism (principal); J96.20 Acute and chronic respiratory failure, unspecified whether with hypoxia or hypercapnia; E43 Unspecified severe protein-calorie malnutrition; R65.21 Severe sepsis with septic shock; G93.41 Metabolic encephalopathy; R53.2 Functional quadriplegia; N17.9 Acute kidney failure, unspecified; I69.959 Hemiplegia and hemiparesis following unspecified cerebrovascular disease affecting unspecified side; K94.22 Gastrostomy infection; K94.23 Gastrostomy malfunction; N39.0 Urinary tract infection, site not specified; Z99.11 Dependence on respirator [ventilator] status; N13.6 Pyonephrosis; E87.1 Hypo-osmolality and hyponatremia; I82.512 Chronic embolism and thrombosis of left femoral vein; Z93.0 Tracheostomy status; M24.50 Contracture, unspecified joint; D64.9 Anemia, unspecified; Z68.22 Body mass index [BMI] 22.0-22.9, adult; E03.9 Hypothyroidism, unspecified; G30.9 Alzheimer's disease, unspecified; F02.80 Dementia in other diseases classified elsewhere, unspecified severity, without behavioral disturbance, psychotic disturbance, mood disturbance, and anxiety; I25.10 Atherosclerotic heart disease of native coronary artery without angina pectoris; I11.0 Hypertensive heart disease with heart failure; I50.9 Heart failure, unspecified; R13.10 Dysphagia, unspecified; F25.9 Schizoaffective disorder, unspecified; J40 Bronchitis, not specified as acute or chronic; K20.8 Other esophagitis; E87.6 Hypokalemia; L97.529 Non-pressure chronic ulcer of other part of left foot with unspecified severity
CPT/HCPCS: 36415; 36569; 36600; 71045; 74177; 75989; 76937; 80048; 80053; 80069; 80150; 80202; 81003; 82550; 82553; 82803; 83605; 83735; 83880; 84100; 84484; 85007; 85025; 85610; 85651; 85730; 86140; 86850; 86900; 86901; 86920; 87040; 87070; 87081; 87086; 87116; 87181; 87205; 87324; 93005; 93970; 94002; 94003; 94640; 94664; 96365; 96368; 99285; J8499

== ENCOUNTER 2019-02-15 08:49 | Inpatient (IN) | payer BC, MEDICAID, MEDICARE ==
[~2019-02-15] VITALS: Ht 162.6 cm; Wt 66.8 kg
[~2019-02-15 08:49] MED LIST changes: +VITAMIN C GT
[2019-02-15] MEDS ORDERED: CRANBERRY425 MG GT (08:54)
[2019-02-15] MEDS ORDERED: HEPARIN SO5000 UNIT2 SUBQ (08:54)
[2019-02-15 08:56] VITALS: BP 131/73
[2019-02-15 09:23] LABS: APPEARANCE,URINE CLOUDY; BILIRUBIN, URINE NEGATIVE (NEGATIVE); GLUCOSE, URINE (UA) NEGATIVE (NEGATIVE); KETONES,URINE NEGATIVE (NEGATIVE); LEUKOCYTE ESTERASE ,URINE 3+ (NEGATIVE); NITRITE,URINE NEGATIVE (NEGATIVE); PH,URINE 8 (4.5-8.0); PROTEIN,URINE 4+ (NEGATIVE); UROBILINOGEN,URINE NORMAL MG/DL (0.0-1.0)
[2019-02-15 09:24] LABS: COLOR,URINE PALE YELLOW
--- NOTE | 2019-02-15 09:31 | Emergency Room Report ---
History of Present Illness General Chief Complaint: General Complaint Source: Medical Record Present Illness HPI Patient presents from nursing facility There were reports that the nephrostomy tube on the left side required evaluation patient himself is tracheostomy Vent dependent not verbal history of present illness is limited There is no reports of vomiting or diarrhea Patient on evaluation does have a nephrostomy tube in the left side Previous medical records are reviewed patient has significant medical history Unknown regarding documented fevers There is some evidence of serosanguineous, possible blood-tinged urine in the nephrostomy tube Allergies: Coded Allergies: NO KNOWN DRUG ALLERGIES (Verified Allergy, Unknown, 09/11/16) Patient History Limited by: medical condition Past Medical History: see triage record Pertinent Family History: unable to obtain Reviewed Nursing Documentation: PMH: Agreed; PSxH: Agreed Nursing Documentation-PMH Past Medical History: No History, Except For Hx Cardiac Problems: Yes Hx Hypertension: Yes Hx Pacemaker: No Hx Asthma: Yes Hx COPD: No - vent dependent Hx Diabetes: Yes - DM II Hx Cancer: No Hx Gastrointestinal Problems: Yes - GERD Hx Dialysis: Yes Hx Neurological Problems: Yes Hx Cerebrovascular Accident: Yes Hx Transient Ischemic Attacks: Yes Hx Dementia: Yes Hx Alzheimer's Disease: Yes Hx Parkinson's Disease: Yes Hx Encephalitis: Yes Hx Seizures: Yes Hx Epilepsy: Yes Hx Paralysis: Yes - HEMIPLEGIA Hx Memory Loss: Yes Hx Concentration Difficulty: Yes Hx Speech Problem: Yes Hx Aphasia: Yes Hx Weakness: Yes Hx Fatigue: Yes Hx Neurologic Surgery: No Hx Brain Shunt: No Review of Systems All Other Systems: limited - Other than the ones mentioned in the history of present illness all others are reviewed however they do stay limited due to the patient's mental status Physical Exam Vital Signs Date Time Temp Pulse Resp B/P (MAP) Pulse Ox O2 Delivery O2 Flow Rate FiO2 02/15/19 08:46 97.5 76 18 120/72 (88) 99 Mechanical Ventilator Sp02 EP Interpretation: reviewed, normal General Appearance: no apparent distress Head: normocephalic Eyes: bilateral eye PERRL ENT: normal pharynx, no angioedema Neck: supple, other - Tracheostomy in place Respiratory: no retraction, no accessory muscle use, crackles - Laterally Cardiovascular #1: regular rate, rhythm Gastrointestinal: soft Genitourinary: other - Nephrostomy tube left lower back region, appears to be dislodged likely Musculoskeletal: other - Chronically debilitated with contractures Neurologic: responsive - To physical stimuli Skin: other - Colostomy tube left lower flank region Lymphatic: no adenopathy Medical Decision Making Diagnostic Impression: Primary Impression: Nephrostomy complication Additional Impression: UTI (urinary tract infection) ER Course Patient is a fairly complex patient with multiple differential to consideration including but not limited to cardiac cardiopulmonary and vascular emergencies Patient CT reveals similar findings to previous Urine sample at this time show significant infectious pathology Patient's primary would like the patient to be hospitalized for further evaluation and possible replacement of the nephrostomy tube Patient admitted for further care Labs Test 02/15/19 09:00 02/15/19 11:15 Urine Color Pale yellow Urine Appearance Cloudy Urine pH 8 (4.5-8.0) Urine Specific [place] 1.010 (1.005-1.035) Urine Protein 4+ (NEGATIVE) Urine Glucose (UA) Negative (NEGATIVE) Urine Ketones Negative (NEGATIVE) Urine Blood 5+ (NEGATIVE) Urine Nitrite Negative (NEGATIVE) Urine Bilirubin Negative (NEGATIVE) Urine Urobilinogen Normal MG/DL (0.0-1.0) Urine Leukocyte Esterase 3+ (NEGATIVE) Urine RBC 40-60 /HPF (0 - 0) Urine WBC Tntc /HPF (0 - 0) Urine Squamous Epithelial Cells Occasional /LPF Urine Bacteria Moderate /HPF (NONE) White Blood Count 10.7 K/UL (4.8-10.8) Red Blood Count 3.55 M/UL (4.70-6.10) Hemoglobin 9.9 G/DL (14.2-18.0) Hematocrit 29.6 % (42.0-52.0) Mean Corpuscular Volume 83 FL (80-99) Mean Corpuscular Hemoglobin 27.8 PG (27.0-31.0) Mean Corpuscular Hemoglobin Concent 33.4 G/DL (32.0-36.0) Red Cell Distribution Width 14.6 % (11.6-14.8) Platelet Count 396 K/UL (150-450) Mean Platelet Volume 6.9 FL (6.5-10.1) Neutrophils (%) (Auto) 65.4 % (45.0-75.0) Lymphocytes (%) (Auto) 19.1 % (20.0-45.0) Monocytes (%) (Auto) 8.7 % (1.0-10.0) Eosinophils (%) (Auto) 6.1 % (0.0-3.0) Basophils (%) (Auto) 0.7 % (0.0-2.0) Prothrombin Time 10.7 SEC (9.30-11.50) Prothromb Time International Ratio 1.0 (0.9-1.1) Activated Partial Thromboplast Time 30 SEC (23-33) Sodium Level 134 MMOL/L (136-145) Potassium Level 4.5 MMOL/L (3.5-5.1) Chloride Level 100 MMOL/L (98-107) Carbon Dioxide Level 25 MMOL/L (21-32) Anion Gap 9 mmol/L (5-15) Blood Urea Nitrogen 29 mg/dL (7-18) Creatinine 1.2 MG/DL (0.55-1.30) Estimat Glomerular Filtration Rate 59.9 mL/min (>60) Glucose Level 110 MG/DL (74-106) Calcium Level 9.6 MG/DL (8.5-10.1) Rhythm Strip Diag. Results EP Interpretation: yes Rate: 77 Rhythm: NSR, no PVC's, no ectopy CT/MRI/US Diagnostic Results CT/MRI/US Diagnostic Results : Impression CT abdomen pelvisIMPRESSION: 1. Persistent 1.8 cm stone in the proximal/mid left ureter. Interval placement of a percutaneous left nephrostomy tube. Decreased but persistent mild left hydroureteronephrosis. Punctate nonobstructing bilateral renal stones. 2. Moderate stool in the rectum is suggestive of fecal impaction with mild stercoral inflammation. 3. Bronchial wall thickening is concerning for bronchitis. Reticulonodular densities in the lower lungs and mild patchy densities are concerning for an infectious/inflammatory process. 4. Distended bladder with nonspecific mild prominence of the bladder wall. Please correlate with urinalysis if concerned for cystitis. Last Vital Signs Date Time Temp Pulse Resp B/P (MAP) Pulse Ox O2 Delivery O2 Flow Rate FiO2 02/15/19 08:46 97.5 76 18 120/72 (88) 99 Mechanical Ventilator Status: improved Disposition: ADMITTED INPATIENT Condition: Serious Sven Salcedo DO Feb 15, 2019 09:31
[2019-02-15 10:40] VITALS: BP 114/95
[2019-02-15] MEDS ORDERED: Levothyroxine 25mcg tab ONE (10:56)
[2019-02-15] MEDS ORDERED: Miralax 17gm pkt ORAL PRN (11:00)
[2019-02-15] MEDS ORDERED: Albuterol/Ipratropium 3ml neb HHN PRN (11:00)
[2019-02-15] MEDS ORDERED: LORazepam Inj 2mg/ml 1ml IV PRN (11:00)
[2019-02-15] MEDS ORDERED: Morphine Sulfate 4mg/ml Inj (IV USE ONLY) IVP PRN (11:00)
[2019-02-15] MEDS ORDERED: Piperacillin/Tazobactam 3.375 GM in NS 110 ML IVPB ONE (11:30)
[2019-02-15 11:34] LABS: BASOPHILS % (AUTO) 0.7 % (0.0-2.0); EOSINOPHILS % (AUTO) 6.1 % (0.0-3.0); HEMATOCRIT 29.6 % (42.0-52.0); HEMOGLOBIN 9.9 G/DL (14.2-18.0); LYMPHOCYTES % (AUTO) 19.1 % (20.0-45.0); MEAN CORPUSCULAR VOLUME 83 FL (80-99); MONOCYTES % (AUTO) 8.7 % (1.0-10.0); NEUTROPHILS % (AUTO) 65.4 % (45.0-75.0); PLATELET COUNT 396 K/UL (150-450); RED BLOOD COUNT 3.55 M/UL (4.70-6.10); RED CELL DISTRIBUTION WIDTH 14.6 % (11.6-14.8); WHITE BLOOD COUNT 10.7 K/UL (4.8-10.8)
[2019-02-15 11:40] LABS: ANION GAP 9 mmol/L (5-15); BLOOD UREA NITROGEN 29 mg/dL (7-18); CALCIUM 9.6 MG/DL (8.5-10.1); CARBON DIOXIDE 25 MMOL/L (21-32); CHLORIDE 100 MMOL/L (98-107); CREATININE 1.2 MG/DL (0.55-1.30); POTASSIUM 4.5 MMOL/L (3.5-5.1); SODIUM 134 MMOL/L (136-145)
--- NOTE | 2019-02-15 11:57 | Diagnostic Imaging Report ---
EXAM: CT Abdomen and Pelvis Without Intravenous Contrast CLINICAL HISTORY: PAIN TECHNIQUE: Axial computed tomography images of the abdomen and pelvis without intravenous contrast. CTDI is 21.01 mGy and DLP is 860 mGy-cm. One or more of the following dose reduction techniques were used: automated exposure control, adjustment of the mA and/or kV according to patient size, use of iterative reconstruction technique. COMPARISON: CT abdomen/pelvis on 12/24/2018 FINDINGS: Evaluation of solid organs somewhat limited without IV contrast. Liver: No focal lesion. Spleen: No focal lesion. Gallbladder: No stones or biliary dilatation. Pancreas: No acute inflammation. No mass. Adrenal glands: Specific stable mild prominence of the left adrenal gland. Kidneys: Interval placement of a percutaneous left nephrostomy tube. Punctate nonobstructing bilateral renal stones. Persistent 1.8 cm stone in the proximal/mid left ureter. Decreased but persistent mild left hydroureteronephrosis. Nonspecific lobulated appearance of the left kidney. Left perinephric fat stranding. Bowel: Moderate stool in the rectum is suggestive of fecal impaction with mild stercoral inflammation. G-tube in place. No bowel obstruction or inflammation. Urinary bladder: Distended bladder with nonspecific mild prominence of the bladder wall. Reproductive organs: Unremarkable. Muscles: No mass. Subcutaneous tissues: Unremarkable. Peritoneal space: No free fluid. Lymph nodes: No lymphadenopathy. Vessels: Atherosclerotic changes of the vasculature. No aneurysm. Bones: Osteopenia. Degenerative changes of the spine. Stable superior endplate compression deformities of the L1, T11, T10, and T8 vertebral bodies. No acute fracture or bony lesion. Lung bases: Bronchial wall thickening is concerning for bronchitis. Reticulonodular densities in the lower lungs and mild patchy densities are concerning for an infectious/inflammatory process. Mild dependent and bibasilar atelectasis. Other: Stable small density in the distal esophagus. Trace fluid in the distal esophagus. IMPRESSION: 1. Persistent 1.8 cm stone in the proximal/mid left ureter. Interval placement of a percutaneous left nephrostomy tube. Decreased but persistent mild left hydroureteronephrosis. Punctate nonobstructing bilateral renal stones. 2. Moderate stool in the rectum is suggestive of fecal impaction with mild stercoral inflammation. 3. Bronchial wall thickening is concerning for bronchitis. Reticulonodular densities in the lower lungs and mild patchy densities are concerning for an infectious/inflammatory process. 4. Distended bladder with nonspecific mild prominence of the bladder wall. Please correlate with urinalysis if concerned for cystitis.
--- NOTE | 2019-02-15 12:15 | Consultation ---
DATE OF CONSULTATION: 02/15/2019 CONSULTING PHYSICIAN: Sergio Nazario M.D. REFERRING PHYSICIAN: Sven Salcedo D.O. HISTORY OF PRESENT ILLNESS: This is an unfortunate 68-year-old male with a history of convalescent. He has a history of stones and a chronic left nephrostomy. He was brought to the emergency room for evaluation of left nephrostomy. Apparently, he has been draining fairly well. He has an extensive past medical history including history of respiratory failure, malnutrition, contractures. He has been incontinent. PAST MEDICAL HISTORY: As above. MEDICATIONS: His medication lists were noted. ALLERGIES: Noted. PHYSICAL EXAMINATION: He has feeding tube in place. Left nephrostomy in place. I am able to irrigate the nephrostomy. LABORATORY STUDIES: His old laboratory studies from his previous admission were noted. Creatinine is 1.1. He did have urinalysis today that was drawn from the nephrostomy that shows 40-60 rbc's, too numerous to count wbc's, and moderate bacteria. IMPRESSION: 1. History of nephrolithiasis. 2. Chronic hydro on the left nephrostomy. 3. Left renal atrophy. 4. Urinary colonization. PLAN AND DISCUSSION: The patient again has multiple medical issues. He was previously seen by Dr. Vazquez and I agree with his assessment. He is not a surgical candidate. I would recommend keeping the nephrostomy and changing it every three to four months and if any other further intervention is necessary, I would recommend referral to a tertiary care center given his complex medical issues. Sergio Nazario M.D. DR: XANDER JOB#: [id number] CC:
[2019-02-15 13:30] VITALS: BP 137/76
[2019-02-15] MEDS ORDERED: Vancomycin 1 GM in D5W 275 ML IVPB ONE (14:00)
[2019-02-15] MEDS: Sucralfate 1gm tab GT SCH ×3 (14:32→20:52)
[2019-02-15 16:00] VITALS: BP 125/94
[2019-02-15 20:00] VITALS: BP 115/94
[2019-02-15] MEDS: Heparin 5000 units/ml inj SUBQ SCH (20:37)
[2019-02-16] VITALS: BP 124/81
[2019-02-16] MEDS: Vancomycin 500mg/D5W 110ml IVPB SCH ×4 (02:42→13:55)
[2019-02-16 04:00] VITALS: BP 121/72
[2019-02-16 04:34] LABS: BASOPHILS % (AUTO) 0.6 % (0.0-2.0); EOSINOPHILS % (AUTO) 5.2 % (0.0-3.0); HEMATOCRIT 29.7 % (42.0-52.0); HEMOGLOBIN 9.7 G/DL (14.2-18.0); LYMPHOCYTES % (AUTO) 10.1 % (20.0-45.0); MEAN CORPUSCULAR VOLUME 85 FL (80-99); MONOCYTES % (AUTO) 9.1 % (1.0-10.0); NEUTROPHILS % (AUTO) 75.2 % (45.0-75.0); PLATELET COUNT 403 K/UL (150-450); RED CELL DISTRIBUTION WIDTH 15.2 % (11.6-14.8); WHITE BLOOD COUNT 13.6 K/UL (4.8-10.8)
[2019-02-16 04:50] LABS: ALBUMIN 3.1 G/DL (3.4-5.0); ANION GAP 10 mmol/L (5-15); BLOOD UREA NITROGEN 27 mg/dL (7-18); CALCIUM 9.8 MG/DL (8.5-10.1); CARBON DIOXIDE 23 MMOL/L (21-32); CHLORIDE 100 MMOL/L (98-107); CREATININE 1.3 MG/DL (0.55-1.30); PHOSPHORUS 4.6 MG/DL (2.5-4.9); POTASSIUM 4.9 MMOL/L (3.5-5.1); SODIUM 133 MMOL/L (136-145)
[2019-02-16 09:00] VITALS: BP 139/53
[2019-02-16] MEDS: Sucralfate 1gm tab GT SCH ×4 (09:57→20:05)
[2019-02-16] MEDS: Heparin 5000 units/ml inj SUBQ SCH ×2 (09:59→20:06)
[2019-02-16 12:00] VITALS: BP 130/69
--- NOTE | 2019-02-16 14:25 | Consultation ---
Consult Note Consult Note 68 y old male admitted for complications of Nephrostomy and UTI examined data reviewed Patient presents from nursing facility There were reports that the nephrostomy tube on the left side required evaluation patient himself is tracheostomy Vent dependent not verbal history of present illness is limited There is no reports of vomiting or diarrhea Patient on evaluation does have a nephrostomy tube in the left side Previous medical records are reviewed patient has significant medical history Unknown regarding documented fevers There is some evidence of serosanguineous, possible blood-tinged urine in the nephrostomy tube NO KNOWN DRUG ALLERGIES (Verified Allergy, Unknown, 09/11/16) . Assessment/Plan Azotemia /renal failure UTI Severe protein-calorie malnutrition Hypothyroidism Low Na Tracheostomy dependence Respiratory failure, [id number] h/o GI bleed Alzheimer's Feeding by G-tube plan; Gastric support Antibiotics Electrolyte adjustment and supplement as needed pulm support monitor renal parameters Avoid Nephrotoxics check H&H per orders Sav Salvador MD Feb 16, 2019 14:25
[2019-02-16 14:40] LABS: ANION GAP 15 mmol/L (5-15); BLOOD UREA NITROGEN 26 mg/dL (7-18); CARBON DIOXIDE 18 MMOL/L (21-32); CHLORIDE 100 MMOL/L (98-107); CREATININE 1.3 MG/DL (0.55-1.30); SODIUM 133 MMOL/L (136-145)
--- NOTE | 2019-02-16 14:40 | Pulmonolgy Critical Care Note ---
Critical Care - Asmt/Plan Problems: (1) Respiratory failure, [id number] (2) Severe sepsis (3) Nephrostomy complication (4) Severe protein-calorie malnutrition (5) Feeding by G-tube Respiratory: monitor respiratory rate, adjust FIO2 Cardiac: continue to monitor HR/BP Renal: F/U I&O, keep IV fluid Infectious Disease: check cultures Gastrointestinal: continue feedings/current rate Endocrine: monitor blood sugar Hematologic: monitor H/H Neurologic: PRN Ativan Affect: PRN ativan Time Spent (Minutes): 40 Notes Reviewed: cardio, 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 with: consultants Critical Care - Objective Last 24 Hour Vital Signs Date Time Temp Pulse Resp B/P (MAP) Pulse Ox O2 Delivery O2 Flow Rate FiO2 02/16/19 12:35 97 24 40 02/16/19 12:00 Mechanical Ventilator 02/16/19 12:00 40 02/16/19 12:00 98.6 99 22 130/69 (89) 97 02/16/19 12:00 93 02/16/19 10:40 81 18 40 02/16/19 09:21 81 19 40 02/16/19 09:00 98.5 83 20 139/53 (81) 100 02/16/19 08:00 81 02/16/19 08:00 Mechanical Ventilator 02/16/19 08:00 40 02/16/19 06:51 78 18 40 02/16/19 06:15 77 02/16/19 05:02 81 19 40 02/16/19 04:00 98.4 78 20 121/72 (88) 100 02/16/19 04:00 Mechanical Ventilator 02/16/19 04:00 40 02/16/19 02:45 76 18 40 02/16/19 00:37 81 18 40 02/16/19 00:00 77 02/16/19 00:00 Mechanical Ventilator 02/16/19 00:00 98.5 78 21 124/81 (95) 100 02/15/19 22:48 77 18 40 02/15/19 20:57 81 19 40 02/15/19 20:00 Mechanical Ventilator 02/15/19 20:00 97.9 77 21 115/94 (101) 100 02/15/19 20:00 40 02/15/19 20:00 77 02/15/19 18:40 80 18 40 02/15/19 17:22 75 19 40 02/15/19 16:00 97.8 81 21 125/94 (104) 100 02/15/19 16:00 73 02/15/19 16:00 Mechanical Ventilator 02/15/19 16:00 40 02/15/19 15:42 73 18 40 02/15/19 15:42 79 02/15/19 14:50 Mechanical Ventilator Status: obtunded Condition: critical Neck: full ROM Lungs: clear Heart: HR/BP stable Abdomen: soft, active bowel sounds Extremities: no C/C/E, edema Decubiti: stage Micro: Microbiology Date/Time Source Procedure Growth Status 02/15/19 09:21 Sputum Gram Stain - Final Resulted 02/15/19 09:21 Sputum Sputum Culture Pending Resulted 02/15/19 09:00 Urine,Clean Catch Urine Culture - Preliminary Gram Negative Alex Resulted Critical Care - Subjective ROS Limited/Unobtainable: Yes EKG Rhythm: Sinus Rhythm FI02: 40 Vent Support Breath Rate: 18 Vent Support Mode: AC Vent Tidal Volume: 600 Sputum Amount: Moderate PEEP: 5.0 PIP: 20 Tube Feeding Amount: 30 I&O: Intake and Output 02/15/19 02/16/19 19:00 07:00 Intake Total 725.0 ml 730 ml Output Total 10 ml 510 ml Balance 715.0 ml 220 ml Intake Free Water 160 ml 200 ml IV Total 385.0 ml 110 ml Tube Feeding 180 ml 360 ml Other 60 ml Output Urine Total 10 ml 500 ml Other 10 ml # Bowel Movements 1 Huma Keating MD Feb 16, 2019 14:40
[2019-02-16 14:57] LABS: ALANINE AMINOTRANSFERASE 38 U/L (12-78); ALBUMIN 3.2 G/DL (3.4-5.0); ALBUMIN/GLOBULIN RATIO 0.7 (1.0-2.7); ALKALINE PHOSPHATASE 168 U/L (46-116); ASPARTATE AMINO TRANSFERASE 29 U/L (15-37); BILIRUBIN,DIRECT < 0.1 MG/DL (0.0-0.3); BILIRUBIN,TOTAL 0.3 MG/DL (0.2-1.0); FERRITIN 384 NG/ML (8-388); PHOSPHORUS 4.7 MG/DL (2.5-4.9)
[2019-02-16 15:32] LABS: % IRON SATURATION 12 % (15-50); IRON 26 ug/dL (50-175); TOTAL IRON BINDING CAPACITY 223 ug/dL (250-450)
[2019-02-16 16:00] VITALS: BP 132/81
[2019-02-16] MEDS: Meropenem 1gm/NS 110ml IVPB SCH ×4 (17:51→22:07)
[2019-02-16] MEDS ORDERED: MIRALAX17 G2 ORAL (19:26)
[2019-02-16 20:00] VITALS: BP 119/74
--- NOTE | 2019-02-16 22:15 | History and Physical Report ---
DATE OF ADMISSION: 02/15/2019 TIME SEEN: 6 p.m. CONSULTANTS: 1. Huma Keating M.D. 2. Sav Salvador M.D. CHIEF COMPLAINT: Respiratory failure, need to change nephrostomy tube. BRIEF HISTORY: This is a 68-year-old male from [facility], who presents with history of chronic respiratory failure, on ventilator was requesting to have nephrostomy tube changed. The patient was admitted for above. Currently, sleeping in bed, trach, vent, altered, and nonverbal. PAST MEDICAL HISTORY: Includes respiratory failure, nephrostomy complication, psychosis, malnutrition, hypothyroid, encephalopathy, and Alzheimer's dementia. PAST SURGICAL HISTORY: Trach and G-tube. MEDICATIONS: Include meropenem, levothyroxine, vancomycin, , sucralfate, Tylenol, morphine, Zofran, and lorazepam. ALLERGIES: Denies. SOCIAL HISTORY: Unable to obtain secondary to the patient's condition. REVIEW OF SYSTEMS: Unavailable. PHYSICAL EXAMINATION: GENERAL: Trach, vent, altered, lethargic in bed, and nonverbal. VITAL SIGNS: Show temperature 98 degrees, pulse 106, respirations 22, and blood pressure 132/81. CARDIOVASCULAR: No murmur. LUNGS: Poor air exchange. ABDOMEN: Bowel sounds distant. EXTREMITIES: No cyanosis, clubbing, or edema. NEUROLOGIC: The patient is flaccid in bed, not following directions. LABORATORY AND DIAGNOSTIC DATA: Labs show white count 13, hemoglobin and hematocrit are 9 and 29, and platelets 413,000. BMP shows sodium 133, BUN 27, and glucose 127. INR is 1.0. PTT is 30. Urinalysis showed 3+ leukocyte esterase. ASSESSMENT: 1. Respiratory failure. 2. Urinary tract infection. 3. Sepsis. 4. Nephrostomy complication. 5. Alzheimer's dementia. 6. Psych history. 7. Anemia. 8. Malnutrition. 9. Hypothyroid. 10. Encephalopathy. PLAN: 1. Vent per Pulmonary. 2. Antibiotics per Infectious Disease. 3. Blood pressure and blood sugar control. 4. Resume home medications. 5. Dietary followup. 6. CBC and BMP in the morning. 7. Intervention Radiology to change nephrostomy tube. Gato Viveros D.O. DR: Vinay JOB#: [id number] CC:
[2019-02-17] VITALS: BP 111/59
[2019-02-17] MEDS: Vancomycin 500mg/D5W 110ml IVPB SCH ×4 (01:53→15:23)
[2019-02-17 04:00] VITALS: BP 124/69
[2019-02-17 06:36] LABS: HEMATOCRIT 34.5 % (42.0-52.0); HEMOGLOBIN 11.1 G/DL (14.2-18.0); MEAN CORPUSCULAR VOLUME 86 FL (80-99); PLATELET COUNT 453 K/UL (150-450); RED CELL DISTRIBUTION WIDTH 15.9 % (11.6-14.8); WHITE BLOOD COUNT 21.1 K/UL (4.8-10.8)
[2019-02-17 07:03] LABS: ANION GAP 11 mmol/L (5-15); BLOOD UREA NITROGEN 31 mg/dL (7-18); CALCIUM 9.9 MG/DL (8.5-10.1); CARBON DIOXIDE 22 MMOL/L (21-32); CHLORIDE 100 MMOL/L (98-107); CREATININE 1.7 MG/DL (0.55-1.30); POTASSIUM 4.6 MMOL/L (3.5-5.1); SODIUM 133 MMOL/L (136-145)
[2019-02-17 08:00] VITALS: BP 112/63
--- NOTE | 2019-02-17 08:40 | General Progress Note ---
Assessment/Plan Problem List: (1) UTI (urinary tract infection) ICD Codes: N39.0 - Urinary tract infection, site not specified SNOMED: 97020009 (2) Nephrostomy complication ICD Codes: N99.528 - Other complication of incontinent external stoma of urinary tract SNOMED: 05770100 (3) Severe protein-calorie malnutrition ICD Codes: E43 - Unspecified severe protein-calorie malnutrition SNOMED: 470932879 (4) Feeding by G-tube ICD Codes: Z93.1 - Gastrostomy status SNOMED: 008910947, 420611501 (5) Respiratory failure, [id number] ICD Codes: J96.20 - Respiratory failure, [id number] SNOMED: 08923230 (6) Anemia ICD Codes: D64.9 - Anemia, unspecified SNOMED: 638048487 (7) Hypothyroidism ICD Codes: E03.9 - Hypothyroidism, unspecified SNOMED: 79345349 (8) Alzheimer's dementia ICD Codes: G30.9 - Alzheimer's disease, unspecified SNOMED: 28410461 Status: unchanged Assessment/Plan: vent abx diert eval neph f/u cbc bmp am Subjective Constitutional: Reports: weakness Allergies: Coded Allergies: NO KNOWN DRUG ALLERGIES (Verified Allergy, Unknown, 09/11/16) All Systems: reviewed and negative except above Subjective trach vent altered Objective Last 24 Hour Vital Signs Date Time Temp Pulse Resp B/P (MAP) Pulse Ox O2 Delivery O2 Flow Rate FiO2 02/17/19 07:06 87 25 40 02/17/19 05:23 83 24 40 02/17/19 04:00 98.3 81 18 124/69 (87) 100 02/17/19 04:00 Mechanical Ventilator 02/17/19 04:00 40 02/17/19 04:00 84 02/17/19 03:41 88 18 40 02/17/19 01:14 87 18 45 02/17/19 00:00 Mechanical Ventilator 02/17/19 00:00 98.1 86 18 111/59 (76) 100 02/17/19 00:00 85 02/17/19 00:00 40 02/16/19 22:36 82 19 45 02/16/19 21:11 117 26 45 02/16/19 20:00 98.3 108 20 119/74 (89) 100 02/16/19 20:00 Mechanical Ventilator 02/16/19 20:00 40 02/16/19 20:00 106 02/16/19 18:51 117 26 50 02/16/19 17:10 106 22 40 02/16/19 16:00 40 02/16/19 16:00 98 02/16/19 16:00 Mechanical Ventilator 02/16/19 16:00 98.1 112 23 132/81 (98) 100 02/16/19 14:40 92 22 40 02/16/19 12:35 97 24 40 02/16/19 12:00 Mechanical Ventilator 02/16/19 12:00 40 02/16/19 12:00 98.6 99 22 130/69 (89) 97 02/16/19 12:00 93 02/16/19 10:40 81 18 40 02/16/19 09:21 81 19 40 02/16/19 09:00 98.5 83 20 139/53 (81) 100 Intake and Output 02/16/19 02/17/19 18:59 06:59 Intake Total 550 ml 680 ml Output Total 630 ml 395 ml Balance -80 ml 285 ml Intake Free Water 250 ml 100 ml IV Total 220 ml Tube Feeding 300 ml 360 ml Output Urine Total 600 ml 375 ml Other 30 ml 20 ml # Bowel Movements 4 3 Laboratory Tests 02/17/19 01:08: Vancomycin Level Trough 20.4H 02/17/19 04:30: White Blood Count 21.1#H, Red Blood Count 4.00L, Hemoglobin 11.1L, Hematocrit 34.5L, Mean Corpuscular Volume 86, Mean Corpuscular Hemoglobin 27.7, Mean Corpuscular Hemoglobin Concent 32.1, Red Cell Distribution Width 15.9H, Platelet Count 453H, Mean Platelet Volume 6.7, Neutrophils (%) (Auto) , Lymphocytes (%) (Auto) , Monocytes (%) (Auto) , Eosinophils (%) (Auto) , Basophils (%) (Auto) , Differential Total Cells Counted 100, Neutrophils % ( Manual) 90H, Lymphocytes % (Manual) 8L, Monocytes % (Manual) 2, Eosinophils % ( Manual) 0, Basophils % (Manual) 0, Band Neutrophils 0, Platelet Estimate Adequate, Platelet Morphology Normal, Anisocytosis 1+, Sodium Level 133L, Potassium Level 4.6, Chloride Level 100, Carbon Dioxide Level 22, Anion Gap 11, Blood Urea Nitrogen 31H, Creatinine 1.7H, Estimat Glomerular Filtration Rate 40.0, Glucose Level 109H, Calcium Level 9.9 Height (Feet): 5 Height (Inches): 4.00 Weight (Pounds): 110 General Appearance: lethargic EENT: normal ENT inspection Neck: normal alignment Cardiovascular: normal peripheral pulses, normal rate, regular rhythm Respiratory/Chest: chest wall non-tender, lungs clear, normal breath sounds Abdomen: normal bowel sounds, non tender, soft Extremities: normal inspection Edema: no edema noted Arm (L), no edema noted Arm (R), no edema noted Leg (L), no edema noted Leg (R), no edema noted Pedal (L), no edema noted Pedal (R), no edema noted Generalized Neurologic: motor weakness Skin: normal pigmentation, warm/dry Gato Viveros DO Feb 17, 2019 08:40
[2019-02-17] MEDS: Heparin 5000 units/ml inj SUBQ SCH ×2 (09:00→20:15)
[2019-02-17] MEDS: Sucralfate 1gm tab GT SCH ×4 (10:47→20:13)
[2019-02-17] MEDS: Meropenem 1gm/NS 110ml IVPB SCH ×4 (10:58→20:13)
--- NOTE | 2019-02-17 11:57 | Nephrology Progress Note ---
Assessment/Plan Problem List: (1) Acute renal failure (2) Nephrostomy complication (3) UTI (urinary tract infection) (4) Hypothyroidism Assessment Azotemia /renal failure UTI Severe protein-calorie malnutrition Hypothyroidism Low Na Tracheostomy dependence Respiratory failure, ylaiv-nj-loqbkeo h/o GI bleed Alzheimer's Feeding by G-tube Plan Gastric support Antibiotics Electrolyte adjustment and supplement as needed pulm support monitor renal parameters Avoid Nephrotoxics check H&H per orders Objective Objective Last 24 Hour Vital Signs Date Time Temp Pulse Resp B/P (MAP) Pulse Ox O2 Delivery O2 Flow Rate FiO2 02/17/19 11:39 91 25 40 02/17/19 09:16 94 20 40 02/17/19 08:00 98.1 81 22 112/63 (79) 98 02/17/19 08:00 40 02/17/19 08:00 81 02/17/19 07:06 87 25 40 02/17/19 05:23 83 24 40 02/17/19 04:00 98.3 81 18 124/69 (87) 100 02/17/19 04:00 Mechanical Ventilator 02/17/19 04:00 40 02/17/19 04:00 84 02/17/19 03:41 88 18 40 02/17/19 01:14 87 18 45 02/17/19 00:00 Mechanical Ventilator 02/17/19 00:00 98.1 86 18 111/59 (76) 100 02/17/19 00:00 85 02/17/19 00:00 40 02/16/19 22:36 82 19 45 02/16/19 21:11 117 26 45 02/16/19 20:00 98.3 108 20 119/74 (89) 100 02/16/19 20:00 Mechanical Ventilator 02/16/19 20:00 40 02/16/19 20:00 106 02/16/19 18:51 117 26 50 02/16/19 17:10 106 22 40 02/16/19 16:00 40 02/16/19 16:00 98 02/16/19 16:00 Mechanical Ventilator 02/16/19 16:00 98.1 112 23 132/81 (98) 100 02/16/19 14:40 92 22 40 02/16/19 12:35 97 24 40 02/16/19 12:00 Mechanical Ventilator 02/16/19 12:00 40 02/16/19 12:00 98.6 99 22 130/69 (89) 97 02/16/19 12:00 93 Intake and Output 02/16/19 02/17/19 18:59 06:59 Intake Total 550 ml 680 ml Output Total 630 ml 395 ml Balance -80 ml 285 ml Intake Free Water 250 ml 100 ml IV Total 220 ml Tube Feeding 300 ml 360 ml Output Urine Total 600 ml 375 ml Other 30 ml 20 ml # Bowel Movements 4 3 Laboratory Tests 02/17/19 01:08: Vancomycin Level Trough 20.4H 02/17/19 04:30: White Blood Count 21.1#H, Red Blood Count 4.00L, Hemoglobin 11.1L, Hematocrit 34.5L, Mean Corpuscular Volume 86, Mean Corpuscular Hemoglobin 27.7, Mean Corpuscular Hemoglobin Concent 32.1, Red Cell Distribution Width 15.9H, Platelet Count 453H, Mean Platelet Volume 6.7, Neutrophils (%) (Auto) , Lymphocytes (%) (Auto) , Monocytes (%) (Auto) , Eosinophils (%) (Auto) , Basophils (%) (Auto) , Differential Total Cells Counted 100, Neutrophils % ( Manual) 90H, Lymphocytes % (Manual) 8L, Monocytes % (Manual) 2, Eosinophils % ( Manual) 0, Basophils % (Manual) 0, Band Neutrophils 0, Platelet Estimate Adequate, Platelet Morphology Normal, Anisocytosis 1+, Sodium Level 133L, Potassium Level 4.6, Chloride Level 100, Carbon Dioxide Level 22, Anion Gap 11, Blood Urea Nitrogen 31H, Creatinine 1.7H, Estimat Glomerular Filtration Rate 40.0, Glucose Level 109H, Calcium Level 9.9 Height (Feet): 5 Height (Inches): 4.00 Weight (Pounds): 110 Sav Salvador MD Feb 17, 2019 11:57
[2019-02-17 12:00] VITALS: BP 136/68
--- NOTE | 2019-02-17 15:25 | Consultation ---
History of Present Illness General Date patient seen: Feb 17, 2019 Chief Complaint: General Complaint Reason for Consultation: UTI Present Illness HPI Mr. Huffman is a 68 y/o male with PMHx of HTN, CVA/TIA w/ hemiplegia, functional quadriplegia, chronic encephalopathy, CAD, CHF, hypothyroidism, chronic resp failure trach/vent dependent, dysphagia s/p G-tube, Dm2, ESBL UTI 07/2018, GIB s/p multiple EGDs in the past, hx of severe esophagitis, schizoaffective disease, senior living resident, multiple admissions who was admitted on 02/15/19 for left nephrostomy tube change. On Admission he was aferbile and had no leukocytosis. Since admission he has developed WBCs count of 21. he remains aferbile and is growing proteus only sensitive to Meropenem and amikacin. He is currently on treatment for UTI. History obtained from the chart as he is not verbal. ID was consulted for UTI PMHx/PSHx HTN CVA/TIA w/ hemiplegia Functional quadriplegia, Chronic encephalopathy CAD CHF Hypothyroidism Chronic resp failure trach/vent dependent, Dysphagia s/p G-tube Dm GIB s/p multiple EGDs in the past, hx of severe esophagitis Schizoaffective disease Left nephrostomy tube SocHx No current E/T/D FamHx Unable to obtain as patient not verbal. Allergies: Coded Allergies: NO KNOWN DRUG ALLERGIES (Verified Allergy, Unknown, 09/11/16) Medication History Scheduled Cranberry Extract (Cranberry), 425 MG GT BID, (Reported) Docusate Sodium* (Docusate Sodium*), 100 MG GT DAILY, (Reported) Heparin Sod (Porcine) (Heparin Sodium*), 5,000 UNITS SUBQ EVERY 12 HOURS, ( Reported) Lansoprazole* (Lansoprazole*), 30 MG GT BID Levothyroxine Sodium* (Levothyroxine Sodium*), 75 MCG GT DAILY Magnesium Hydroxide* (Milk Of Magnesia*), 30 ML GT HS, (Reported) Multivitamin Liquid* (Multi-Delyn*), 15 ML GT DAILY, (Reported) Polyethylene Glycol 3350* (Miralax*), 17 GM ORAL DAILY, (Reported) Sucralfate* (Carafate*), 1 GM GT FOUR TIMES A DAY, (Reported) Scheduled PRN Acetaminophen (Acetaminophen), 640 MG GT Q4HR PRN for Prn Headache/Temp > 101, ( Reported) Discontinued Medications Bisacodyl (Dulcolax), 10 MG RC NEEDED PRN for IF MOM INEFFECTIVE, (Reported) Discontinued Reason: Therapy completed Cran/Vitc/Mannose/Inulin/Brom (Uti-Stat Liquid), 3,875 MG GT BID, (Reported) Discontinued Reason: Therapy completed Ipratropium/Albuterol Sulfate (DuoNeb 0.5-3(2.5)mg/3ml), 3 ML HHN Q6HR, ( Reported) Discontinued Reason: Therapy completed Na Phos,M-B/Na Phos,Di-Ba* (Fleet Enema*), 133 ML RECTAL QOD PRN for IF DUCOLAX INEFFETIVE, (Reported) Discontinued Reason: Therapy completed [vitamin c liquid], 5 ML GT DAILY, (Reported) Discontinued Reason: Therapy completed Patient History Healthcare decision maker Resuscitation status Full Code Advanced Directive on File Review of Systems ROS Narrative Unable to obtain as patient not verbal. Physical Exam Last 24 Hour Vital Signs Date Time Temp Pulse Resp B/P (MAP) Pulse Ox O2 Delivery O2 Flow Rate FiO2 02/17/19 12:42 89 22 40 02/17/19 12:00 97.2 89 24 136/68 (90) 99 02/17/19 12:00 40 02/17/19 12:00 Mechanical Ventilator 02/17/19 11:39 91 25 40 02/17/19 09:16 94 20 40 02/17/19 08:00 Mechanical Ventilator 02/17/19 08:00 98.1 81 22 112/63 (79) 98 02/17/19 08:00 40 02/17/19 08:00 81 02/17/19 07:06 87 25 40 02/17/19 05:23 83 24 40 02/17/19 04:00 98.3 81 18 124/69 (87) 100 02/17/19 04:00 Mechanical Ventilator 02/17/19 04:00 40 02/17/19 04:00 84 02/17/19 03:41 88 18 40 02/17/19 01:14 87 18 45 02/17/19 00:00 Mechanical Ventilator 02/17/19 00:00 98.1 86 18 111/59 (76) 100 02/17/19 00:00 85 02/17/19 00:00 40 02/16/19 22:36 82 19 45 02/16/19 21:11 117 26 45 02/16/19 20:00 98.3 108 20 119/74 (89) 100 02/16/19 20:00 Mechanical Ventilator 02/16/19 20:00 40 02/16/19 20:00 106 02/16/19 18:51 117 26 50 02/16/19 17:10 106 22 40 02/16/19 16:00 40 02/16/19 16:00 98 02/16/19 16:00 Mechanical Ventilator 02/16/19 16:00 98.1 112 23 132/81 (98) 100 Intake and Output 02/16/19 02/17/19 19:00 07:00 Intake Total 550 ml 680 ml Output Total 630 ml 395 ml Balance -80 ml 285 ml Intake Free Water 250 ml 100 ml IV Total 220 ml Tube Feeding 300 ml 360 ml Output Urine Total 600 ml 375 ml Other 30 ml 20 ml # Bowel Movements 4 3 Laboratory Tests Test 02/17/19 01:08 02/17/19 04:30 Vancomycin Level Trough 20.4 ug/mL (5.0-12.0) H White Blood Count 21.1 K/UL (4.8-10.8) #H Red Blood Count 4.00 M/UL (4.70-6.10) L Hemoglobin 11.1 G/DL (14.2-18.0) L Hematocrit 34.5 % (42.0-52.0) L Mean Corpuscular Volume 86 FL (80-99) Mean Corpuscular Hemoglobin 27.7 PG (27.0-31.0) Mean Corpuscular Hemoglobin Concent 32.1 G/DL (32.0-36.0) Red Cell Distribution Width 15.9 % (11.6-14.8) H Platelet Count 453 K/UL (150-450) H Mean Platelet Volume 6.7 FL (6.5-10.1) Neutrophils (%) (Auto) % (45.0-75.0) Lymphocytes (%) (Auto) % (20.0-45.0) Monocytes (%) (Auto) % (1.0-10.0) Eosinophils (%) (Auto) % (0.0-3.0) Basophils (%) (Auto) % (0.0-2.0) Differential Total Cells Counted 100 Neutrophils % (Manual) 90 % (45-75) H Lymphocytes % (Manual) 8 % (20-45) L Monocytes % (Manual) 2 % (1-10) Eosinophils % (Manual) 0 % (0-3) Basophils % (Manual) 0 % (0-2) Band Neutrophils 0 % (0-8) Platelet Estimate Adequate Platelet Morphology Normal Anisocytosis 1+ Sodium Level 133 MMOL/L (136-145) L Potassium Level 4.6 MMOL/L (3.5-5.1) Chloride Level 100 MMOL/L (98-107) Carbon Dioxide Level 22 MMOL/L (21-32) Anion Gap 11 mmol/L (5-15) Blood Urea Nitrogen 31 mg/dL (7-18) H Creatinine 1.7 MG/DL (0.55-1.30) H Estimat Glomerular Filtration Rate 40.0 mL/min (>60) Glucose Level 109 MG/DL (74-106) H Calcium Level 9.9 MG/DL (8.5-10.1) Height (Feet): 5 Height (Inches): 4.00 Weight (Pounds): 110 Medications Current Medications Medications (Trade) Dose Ordered Sig/Wanda Route PRN Reason Start Time Stop Time Status Last Admin Dose Admin Acetaminophen (Tylenol) 650 mg Q4H PRN ORAL FEVER 02/15/19 11:00 03/17/19 10:59 Albuterol/ Ipratropium (Albuterol/ Ipratropium) 3 ml Q4H PRN HHN Shortness of Breath 02/15/19 11:00 02/20/19 10:59 Dextrose (Dextrose 50%) 25 ml Q30M PRN IV Hypoglycemia 02/15/19 11:00 03/17/19 10:59 Dextrose (Dextrose 50%) 50 ml Q30M PRN IV Hypoglycemia 02/15/19 12:45 03/17/19 12:44 Heparin Sodium (Porcine) (Heparin 5000 units/ml) 5,000 units EVERY 12 HOURS SUBQ 02/15/19 21:00 03/17/19 20:59 02/16/19 20:06 Levothyroxine Sodium (Synthroid) 75 mcg DAILY GT 02/16/19 09:00 03/18/19 08:59 02/17/19 10:51 Lorazepam (Ativan 2mg/ml 1ml) 2 mg Q2H PRN IV For Anxiety 02/15/19 11:00 02/22/19 10:59 Meropenem 1 gm/ Sodium Chloride 110 ml @ 220 mls/hr Q12HR IVPB 02/16/19 15:00 02/21/19 14:59 02/17/19 10:58 Morphine Sulfate (Morphine Sulfate) 4 mg Q4H PRN IVP Severe Pain (Pain Scale 7-10) 02/15/19 11:00 02/22/19 10:59 Ondansetron HCl (Zofran) 4 mg Q6H PRN IVP Nausea & Vomiting 02/15/19 11:00 03/17/19 10:59 Polyethylene Glycol (Miralax) 17 gm DAILYPRN PRN ORAL Constipation 02/15/19 11:00 03/17/19 10:59 Sucralfate (Carafate) 1 gm FOUR TIMES A DAY GT 02/15/19 13:00 03/17/19 12:59 02/17/19 10:47 Vancomycin HCl (Vanco rx to dose) 1 ea DAILY PRN MISC Per rx protocol 02/15/19 12:45 03/17/19 12:44 Vancomycin HCl 500 mg/Dextrose 110 ml @ 110 mls/hr Q12H IVPB 02/16/19 02:00 02/21/19 01:59 02/17/19 01:53 Objective Narrative Gen: On Vent, Trached HEENT: NCAT, MMM, PERRL, No Oral lesion, no scleral icterus NECK: supple, No LAD, No JVD LUNGS: CTAB, No W/C, No Accessory muscle use CARDS: RRR, S1, S2, No M/R/G, ABD: Soft, NT, ND, No R/G, + BS, No HSM, No Masses, PEG ( No E/P), Left nephrostomy tube No (E/P) : Deferred Ext: C/C/E, Pulses 2+ B/L (DP, Rad) NEURO: A/O x 0, Not following SKIN: Warm/dry, No rashes Assessment/Plan Assessment/Plan: 68 y/o male with multiple admissions and medical probelems who was admitted on for left nephrostomy tube change. Leukocytosis Likely sepsis from UTI left nephrostomy tube placed 12/31/18 Urine Cx 02/15/19 - Proteus - Sen to Sherly and amik Hx of Infected obstructive ureteral stone w/ adjacent abscess Reba abscess was anterior to the proximal ureter adjacent a stone not seen on the current CT scan. He is s/p 1 month Ertapenem for this. R foot lateral ulcer- not infected Hx Constipation Chronic respiratory failure trach/vent dependant Hypothyroidism GERD Hypertension Hx C. diff Dysphagia s/p G-tube Anemia. CVA/TIA w/ hemiplegia functional quadriplegia chronic encephalopathy CAD CHF Dm2 GIB s/p multiple EGDs in the past hx of severe esophagitis schizoaffective disease senior living resident multiple admissions VRE colonization Plan: - Continue meropenem #2 and vancomcyin #2 - get blood Cx - Monitor CBC and Temps - S/p Melita.Erta x 1 month - 12/23/18 SP Zosyn #11, inhaled colistin #8 for MDR P.a.for sputum organism and Fluconazole #7 for Yeast it the urine - 12/12 S/P Vancomycin and Cefepime #5 -12/08 SP Levaquin x1 -11/06 SP Amikacin #6 -11/01 SP Meropenem #4 -10/29 SP IV Vanco #2, Cefepime #2 and Tigecycline #1 -10/28 SP LEavquin x1 -10/09 SP Ertapenem #5 - 10/04 SP Meropenem #2 -10/03/18 SP IV Vancomycin #2 and Cefepime #2 -08/09/18 SP Bactrim #7 -08/03 SP Vancomycin and Cefepime #3 -08/01/18 SP Ceftriaxone x1 -Peg/trach care -aspiration precautions Thank you for this consult. We will continue to follow the patient during this hospitalization. John Fiore MD Feb 17, 2019 15:25
[2019-02-17 16:00] VITALS: BP 132/62
[2019-02-17 20:00] VITALS: BP 116/73
[2019-02-18] VITALS: BP 113/71
[2019-02-18] MEDS: Vancomycin 500mg/D5W 110ml IVPB SCH ×2 (01:40)
[2019-02-18 04:00] VITALS: BP 109/65
[2019-02-18 04:36] LABS: BASOPHILS % (AUTO) 0.8 % (0.0-2.0); EOSINOPHILS % (AUTO) 8.6 % (0.0-3.0); HEMATOCRIT 31.7 % (42.0-52.0); HEMOGLOBIN 10.2 G/DL (14.2-18.0); LYMPHOCYTES % (AUTO) 19.9 % (20.0-45.0); MEAN CORPUSCULAR VOLUME 85 FL (80-99); MONOCYTES % (AUTO) 11.3 % (1.0-10.0); NEUTROPHILS % (AUTO) 59.5 % (45.0-75.0); PLATELET COUNT 360 K/UL (150-450); RED BLOOD COUNT 3.73 M/UL (4.70-6.10); RED CELL DISTRIBUTION WIDTH 15.4 % (11.6-14.8); WHITE BLOOD COUNT 7.9 K/UL (4.8-10.8)
[2019-02-18 04:56] LABS: ANION GAP 10 mmol/L (5-15); BLOOD UREA NITROGEN 33 mg/dL (7-18); CALCIUM 10.1 MG/DL (8.5-10.1); CARBON DIOXIDE 23 MMOL/L (21-32); CHLORIDE 101 MMOL/L (98-107); CREATININE 1.6 MG/DL (0.55-1.30); POTASSIUM 4.3 MMOL/L (3.5-5.1); SODIUM 134 MMOL/L (136-145)
[2019-02-18 08:00] VITALS: BP 115/86
[2019-02-18] MEDS: Heparin 5000 units/ml inj SUBQ SCH ×2 (09:00→20:05)
[2019-02-18] MEDS: Sucralfate 1gm tab GT SCH ×4 (09:06→20:03)
[2019-02-18] MEDS: Meropenem 1gm/NS 110ml IVPB SCH ×4 (09:06→20:03)
--- NOTE | 2019-02-18 10:18 | General Progress Note ---
Progress Note Progress Note pt doens't have any family member. He can't sign his consents. Pt need a change of his nephrostomy tube. Huma Keating MD Feb 18, 2019 10:18
--- NOTE | 2019-02-18 10:20 | Pulmonolgy Critical Care Note ---
Critical Care - Asmt/Plan Problems: (1) Respiratory failure, qoefo-cm-yaxeith (2) Severe sepsis (3) Nephrostomy complication (4) Severe protein-calorie malnutrition (5) Feeding by G-tube Respiratory: monitor respiratory rate, adjust FIO2, CXR Cardiac: continue pressors, continue to monitor HR/BP Renal: F/U I&O, check electrolytes Infectious Disease: check cultures Gastrointestinal: hold feedings Endocrine: check HgA1C Hematologic: transfuse if hgb<8.5 Neurologic: PRN Ativan, keep patient comfortable Prophylaxis: Protonix, Heparin Time Spent (Minutes): 40 Notes Reviewed: 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 with: consultants, case operatormanager product support - Objective Last 24 Hour Vital Signs Date Time Temp Pulse Resp B/P (MAP) Pulse Ox O2 Delivery O2 Flow Rate FiO2 02/18/19 08:42 80 20 40 02/18/19 08:00 98.2 77 18 115/86 (96) 100 02/18/19 08:00 Mechanical Ventilator 02/18/19 08:00 40 02/18/19 06:42 82 20 40 02/18/19 05:10 80 21 40 02/18/19 04:00 40 02/18/19 04:00 99.0 83 20 109/65 (80) 100 02/18/19 04:00 81 02/18/19 04:00 Mechanical Ventilator 02/18/19 03:20 85 21 40 02/18/19 01:22 83 18 40 02/18/19 00:00 82 02/18/19 00:00 98.5 85 18 113/71 (85) 100 02/18/19 00:00 40 02/18/19 00:00 Mechanical Ventilator 02/17/19 22:59 86 19 40 02/17/19 20:44 94 18 40 02/17/19 20:00 40 02/17/19 20:00 Mechanical Ventilator 02/17/19 20:00 83 02/17/19 20:00 98.2 83 20 116/73 (87) 95 02/17/19 19:20 86 26 40 02/17/19 18:00 Mechanical Ventilator 02/17/19 17:02 75 21 40 02/17/19 16:00 40 02/17/19 16:00 86 02/17/19 16:00 98.2 86 24 132/62 (85) 100 02/17/19 16:00 Mechanical Ventilator 02/17/19 15:19 99 26 40 02/17/19 12:42 89 22 40 02/17/19 12:00 85 02/17/19 12:00 97.2 89 24 136/68 (90) 99 02/17/19 12:00 40 02/17/19 12:00 Mechanical Ventilator 02/17/19 11:39 91 25 40 Status: awake Condition: critical HEENT: atraumatic Neck: full ROM Heart: HR/BP stable, regular Abdomen: active bowel sounds Extremities: no C/C/E, edema Critical Care - Subjective ROS Limited/Unobtainable: No Interval Events: needs nephrostomy changed EKG Rhythm: Sinus Rhythm FI02: 40 Vent Support Breath Rate: 18 Vent Support Mode: AC Vent Tidal Volume: 600 Sputum Amount: Moderate PEEP: 5.0 PIP: 27 Tube Feeding Amount: 55 I&O: Intake and Output 02/17/19 02/18/19 18:59 06:59 Intake Total 450 ml 850 ml Output Total 425 ml 300 ml Balance 25 ml 550 ml Intake Free Water 250 ml 100 ml IV Total 110 ml Tube Feeding 200 ml 640 ml Output Urine Total 400 ml 300 ml Other 25 ml # Bowel Movements 4 4 Labs: Laboratory Tests Test 02/18/19 01:05 02/18/19 04:30 Vancomycin Level Trough 25.1 ug/mL (5.0-12.0) H White Blood Count 7.9 K/UL (4.8-10.8) # Red Blood Count 3.73 M/UL (4.70-6.10) L Hemoglobin 10.2 G/DL (14.2-18.0) L Hematocrit 31.7 % (42.0-52.0) L Mean Corpuscular Volume 85 FL (80-99) Mean Corpuscular Hemoglobin 27.3 PG (27.0-31.0) Mean Corpuscular Hemoglobin Concent 32.2 G/DL (32.0-36.0) Red Cell Distribution Width 15.4 % (11.6-14.8) H Platelet Count 360 K/UL (150-450) Mean Platelet Volume 6.8 FL (6.5-10.1) Neutrophils (%) (Auto) 59.5 % (45.0-75.0) Lymphocytes (%) (Auto) 19.9 % (20.0-45.0) L Monocytes (%) (Auto) 11.3 % (1.0-10.0) H Eosinophils (%) (Auto) 8.6 % (0.0-3.0) H Basophils (%) (Auto) 0.8 % (0.0-2.0) Sodium Level 134 MMOL/L (136-145) L Potassium Level 4.3 MMOL/L (3.5-5.1) Chloride Level 101 MMOL/L (98-107) Carbon Dioxide Level 23 MMOL/L (21-32) Anion Gap 10 mmol/L (5-15) Blood Urea Nitrogen 33 mg/dL (7-18) H Creatinine 1.6 MG/DL (0.55-1.30) H Estimat Glomerular Filtration Rate 42.9 mL/min (>60) Glucose Level 99 MG/DL (74-106) Calcium Level 10.1 MG/DL (8.5-10.1) Huma Keating MD Feb 18, 2019 10:20
--- NOTE | 2019-02-18 10:39 | Nephrology Progress Note ---
Assessment/Plan Problem List: (1) Acute renal failure (2) Nephrostomy complication (3) UTI (urinary tract infection) (4) Hypothyroidism Assessment Azotemia /renal failure UTI Severe protein-calorie malnutrition Hypothyroidism Low Na Tracheostomy dependence Respiratory failure, zswym-[id number]-[id number] h/o GI bleed Alzheimer's Feeding by G-tube Plan Gastric support Antibiotics Electrolyte adjustment and supplement as needed pulm support monitor renal parameters Avoid Nephrotoxics check H&H per orders Subjective ROS Limited/Unobtainable: Yes Objective Objective Last 24 Hour Vital Signs Date Time Temp Pulse Resp B/P (MAP) Pulse Ox O2 Delivery O2 Flow Rate FiO2 02/18/19 08:42 80 20 40 02/18/19 08:00 75 02/18/19 08:00 98.2 77 18 115/86 (96) 100 02/18/19 08:00 Mechanical Ventilator 02/18/19 08:00 40 02/18/19 06:42 82 20 40 02/18/19 05:10 80 21 40 02/18/19 04:00 40 02/18/19 04:00 99.0 83 20 109/65 (80) 100 02/18/19 04:00 81 02/18/19 04:00 Mechanical Ventilator 02/18/19 03:20 85 21 40 02/18/19 01:22 83 18 40 02/18/19 00:00 82 02/18/19 00:00 98.5 85 18 113/71 (85) 100 02/18/19 00:00 40 02/18/19 00:00 Mechanical Ventilator 02/17/19 22:59 86 19 40 02/17/19 20:44 94 18 40 02/17/19 20:00 40 02/17/19 20:00 Mechanical Ventilator 02/17/19 20:00 83 02/17/19 20:00 98.2 83 20 116/73 (87) 95 02/17/19 19:20 86 26 40 02/17/19 18:00 Mechanical Ventilator 02/17/19 17:02 75 21 40 02/17/19 16:00 40 02/17/19 16:00 86 02/17/19 16:00 98.2 86 24 132/62 (85) 100 02/17/19 16:00 Mechanical Ventilator 02/17/19 15:19 99 26 40 02/17/19 12:42 89 22 40 02/17/19 12:00 85 02/17/19 12:00 97.2 89 24 136/68 (90) 99 02/17/19 12:00 40 02/17/19 12:00 Mechanical Ventilator 02/17/19 11:39 91 25 40 Intake and Output 02/17/19 02/18/19 19:00 07:00 Intake Total 470 ml 800 ml Output Total 425 ml 300 ml Balance 45 ml 500 ml Intake Free Water 250 ml 100 ml IV Total 110 ml Tube Feeding 220 ml 590 ml Output Urine Total 400 ml 300 ml Other 25 ml # Bowel Movements 4 4 Laboratory Tests 02/18/19 01:05: Vancomycin Level Trough 25.1H 02/18/19 04:30: White Blood Count 7.9#, Red Blood Count 3.73L, Hemoglobin 10.2L, Hematocrit 31.7L, Mean Corpuscular Volume 85, Mean Corpuscular Hemoglobin 27.3, Mean Corpuscular Hemoglobin Concent 32.2, Red Cell Distribution Width 15.4H, Platelet Count 360, Mean Platelet Volume 6.8, Neutrophils (%) (Auto) 59.5, Lymphocytes (%) (Auto) 19.9L, Monocytes (%) (Auto) 11.3H, Eosinophils (%) (Auto ) 8.6H, Basophils (%) (Auto) 0.8, Sodium Level 134L, Potassium Level 4.3, Chloride Level 101, Carbon Dioxide Level 23, Anion Gap 10, Blood Urea Nitrogen 33H, Creatinine 1.6H, Estimat Glomerular Filtration Rate 42.9, Glucose Level 99 , Uric Acid [Pending], Calcium Level 10.1, Total Creatine Kinase [Pending] Height (Feet): 5 Height (Inches): 4.00 Weight (Pounds): 110 General Appearance: no apparent distress EENT: other - trach Cardiovascular: normal rate Respiratory/Chest: decreased breath sounds Abdomen: distended Sav Salvador MD Feb 18, 2019 10:39
[2019-02-18 10:48] LABS: CREATINE KINASE 80 U/L (26-308)
--- NOTE | 2019-02-18 11:01 | Diagnostic Imaging Report ---
APPROVED REPORT CPT Code: 90497 Present Symptoms Comments: Screening Technically difficult study due to bilateral hip and leg contractures. RIGHT LEG: Venous imaging reveals a patent deep venous system. There is no evidence of thrombus within the superficial femoral, popliteal or tibial segments. Doppler indicates normal spontaneous flow within these segments. The common femoral vein was not well visualized, due to contracture. LEFT LEG: Venous imaging also reveals chronic thrombus in the superficial femoral vein. Large collateral vein noted anterior to the superficial femoral artery. Remainder of the deep venous system within normal limits. No evidence of thrombus in the common and calf veins. Greater saphenous vein also within normal limits. The popliteal vein was not imaged, due to contracture. There is no evidence of acute deep vein thrombosis.
[2019-02-18 12:00] VITALS: BP 125/57
--- NOTE | 2019-02-18 14:21 | General Progress Note ---
Assessment/Plan Problem List: (1) UTI (urinary tract infection) ICD Codes: N39.0 - Urinary tract infection, site not specified SNOMED: 49090462 (2) Nephrostomy complication ICD Codes: N99.528 - Other complication of incontinent external stoma of urinary tract SNOMED: 92110271 (3) Severe protein-calorie malnutrition ICD Codes: E43 - Unspecified severe protein-calorie malnutrition SNOMED: 075464165 (4) Feeding by G-tube ICD Codes: Z93.1 - Gastrostomy status SNOMED: 129567003, 087468739 (5) Respiratory failure, [id number] ICD Codes: J96.20 - Respiratory failure, [id number]-trdcots SNOMED: 35037791 (6) Anemia ICD Codes: D64.9 - Anemia, unspecified SNOMED: 753778479 (7) Hypothyroidism ICD Codes: E03.9 - Hypothyroidism, unspecified SNOMED: 88603622 (8) Alzheimer's dementia ICD Codes: G30.9 - Alzheimer's disease, unspecified SNOMED: 75098100 Status: unchanged Assessment/Plan: vent abx diert eval neph f/u cbc bmp am ltach eval Subjective Constitutional: Reports: weakness Allergies: Coded Allergies: NO KNOWN DRUG ALLERGIES (Verified Allergy, Unknown, 09/11/16) All Systems: reviewed and negative except above Subjective trach vent altered Objective Last 24 Hour Vital Signs Date Time Temp Pulse Resp B/P (MAP) Pulse Ox O2 Delivery O2 Flow Rate FiO2 02/18/19 12:32 82 20 40 02/18/19 12:00 Mechanical Ventilator 02/18/19 12:00 40 02/18/19 12:00 98.4 74 18 125/57 (79) 100 02/18/19 10:53 84 20 40 02/18/19 08:42 80 20 40 02/18/19 08:00 75 02/18/19 08:00 98.2 77 18 115/86 (96) 100 02/18/19 08:00 Mechanical Ventilator 02/18/19 08:00 40 02/18/19 06:42 82 20 40 02/18/19 05:10 80 21 40 02/18/19 04:00 40 02/18/19 04:00 99.0 83 20 109/65 (80) 100 02/18/19 04:00 81 02/18/19 04:00 Mechanical Ventilator 02/18/19 03:20 85 21 40 02/18/19 01:22 83 18 40 02/18/19 00:00 82 02/18/19 00:00 98.5 85 18 113/71 (85) 100 02/18/19 00:00 40 02/18/19 00:00 Mechanical Ventilator 02/17/19 22:59 86 19 40 02/17/19 20:44 94 18 40 02/17/19 20:00 40 02/17/19 20:00 Mechanical Ventilator 02/17/19 20:00 83 02/17/19 20:00 98.2 83 20 116/73 (87) 95 02/17/19 19:20 86 26 40 02/17/19 18:00 Mechanical Ventilator 02/17/19 17:02 75 21 40 02/17/19 16:00 40 02/17/19 16:00 86 02/17/19 16:00 98.2 86 24 132/62 (85) 100 02/17/19 16:00 Mechanical Ventilator 02/17/19 15:19 99 26 40 Intake and Output 02/17/19 02/18/19 18:59 06:59 Intake Total 450 ml 850 ml Output Total 425 ml 300 ml Balance 25 ml 550 ml Intake Free Water 250 ml 100 ml IV Total 110 ml Tube Feeding 200 ml 640 ml Output Urine Total 400 ml 300 ml Other 25 ml # Bowel Movements 4 4 Laboratory Tests 02/18/19 01:05: Vancomycin Level Trough 25.1H 02/18/19 04:30: White Blood Count 7.9#, Red Blood Count 3.73L, Hemoglobin 10.2L, Hematocrit 31.7L, Mean Corpuscular Volume 85, Mean Corpuscular Hemoglobin 27.3, Mean Corpuscular Hemoglobin Concent 32.2, Red Cell Distribution Width 15.4H, Platelet Count 360, Mean Platelet Volume 6.8, Neutrophils (%) (Auto) 59.5, Lymphocytes (%) (Auto) 19.9L, Monocytes (%) (Auto) 11.3H, Eosinophils (%) (Auto ) 8.6H, Basophils (%) (Auto) 0.8, Sodium Level 134L, Potassium Level 4.3, Chloride Level 101, Carbon Dioxide Level 23, Anion Gap 10, Blood Urea Nitrogen 33H, Creatinine 1.6H, Estimat Glomerular Filtration Rate 42.9, Glucose Level 99 , Uric Acid 5.3, Calcium Level 10.1, Total Creatine Kinase 80 Height (Feet): 5 Height (Inches): 4.00 Weight (Pounds): 110 General Appearance: lethargic EENT: normal ENT inspection Neck: normal alignment Cardiovascular: normal peripheral pulses, normal rate, regular rhythm Respiratory/Chest: chest wall non-tender, lungs clear, normal breath sounds Abdomen: normal bowel sounds, non tender, soft Extremities: normal inspection Edema: no edema noted Arm (L), no edema noted Arm (R), no edema noted Leg (L), no edema noted Leg (R), no edema noted Pedal (L), no edema noted Pedal (R), no edema noted Generalized Neurologic: motor weakness Skin: normal pigmentation, warm/dry Gato Viveros DO Feb 18, 2019 14:21
--- NOTE | 2019-02-18 14:53 | Infectious Diseases Prog Note ---
Assessment/Plan Assessment/Plan 68 y/o male with multiple admissions and medical probelems who was admitted on for left nephrostomy tube change. Leukocytosis Likely sepsis from UTI left nephrostomy tube placed 12/31/18 Urine Cx 02/15/19 - Proteus - Sen to Sherly and amik Hx of Infected obstructive ureteral stone w/ adjacent abscess Reba abscess was anterior to the proximal ureter adjacent a stone not seen on the current CT scan. He is s/p 1 month Ertapenem for this. R foot lateral ulcer- not infected Hx Constipation Chronic respiratory failure trach/vent dependant Hypothyroidism GERD Hypertension Hx C. diff Dysphagia s/p G-tube Anemia. CVA/TIA w/ hemiplegia functional quadriplegia chronic encephalopathy CAD CHF Dm2 GIB s/p multiple EGDs in the past hx of severe esophagitis schizoaffective disease assisted resident multiple admissions VRE colonization Plan: - Continue meropenem #3 and vancomcyin #3 - f/u blood Cx - if neg will d/c vancomycin - Monitor CBC and Temps - S/p Melita.Erta x 1 month - 12/23/18 SP Zosyn #11, inhaled colistin #8 for MDR P.a.for sputum organism and Fluconazole #7 for Yeast it the urine - 12/12 S/P Vancomycin and Cefepime #5 -12/08 SP Levaquin x1 -11/06 SP Amikacin #6 -11/01 SP Meropenem #4 -10/29 SP IV Vanco #2, Cefepime #2 and Tigecycline #1 -10/28 SP LEavquin x1 -10/09 SP Ertapenem #5 - 10/04 SP Meropenem #2 -10/03/18 SP IV Vancomycin #2 and Cefepime #2 -08/09/18 SP Bactrim #7 -08/03 SP Vancomycin and Cefepime #3 -08/01/18 SP Ceftriaxone x1 -Peg/trach care -aspiration precautions Thank you for this consult. We will continue to follow the patient during this hospitalization. Subjective Allergies: Coded Allergies: NO KNOWN DRUG ALLERGIES (Verified Allergy, Unknown, 09/11/16) Subjective Afebrile WBCs returned to normal - Likely reactive Objective Vital Signs Last 24 Hour Vital Signs Date Time Temp Pulse Resp B/P (MAP) Pulse Ox O2 Delivery O2 Flow Rate FiO2 02/18/19 12:32 82 20 40 02/18/19 12:00 Mechanical Ventilator 02/18/19 12:00 40 02/18/19 12:00 98.4 74 18 125/57 (79) 100 02/18/19 10:53 84 20 40 02/18/19 08:42 80 20 40 02/18/19 08:00 75 02/18/19 08:00 98.2 77 18 115/86 (96) 100 02/18/19 08:00 Mechanical Ventilator 02/18/19 08:00 40 02/18/19 06:42 82 20 40 02/18/19 05:10 80 21 40 02/18/19 04:00 40 02/18/19 04:00 99.0 83 20 109/65 (80) 100 02/18/19 04:00 81 02/18/19 04:00 Mechanical Ventilator 02/18/19 03:20 85 21 40 02/18/19 01:22 83 18 40 02/18/19 00:00 82 02/18/19 00:00 98.5 85 18 113/71 (85) 100 02/18/19 00:00 40 02/18/19 00:00 Mechanical Ventilator 02/17/19 22:59 86 19 40 02/17/19 20:44 94 18 40 02/17/19 20:00 40 02/17/19 20:00 Mechanical Ventilator 02/17/19 20:00 83 02/17/19 20:00 98.2 83 20 116/73 (87) 95 02/17/19 19:20 86 26 40 02/17/19 18:00 Mechanical Ventilator 02/17/19 17:02 75 21 40 02/17/19 16:00 40 02/17/19 16:00 86 02/17/19 16:00 98.2 86 24 132/62 (85) 100 02/17/19 16:00 Mechanical Ventilator 02/17/19 15:19 99 26 40 Height (Feet): 5 Height (Inches): 4.00 Weight (Pounds): 110 Objective Gen: On Vent, Trached HEENT: NCAT, MMM, PERRL NECK: supple, No LAD, No JVD LUNGS: CTAB, No W CARDS: RRR, S1, S2, No M/R/G, ABD: Soft, NT, ND, PEG ( No E/P), Left nephrostomy tube No (E/P) Laboratory Tests Test 02/18/19 01:05 02/18/19 04:30 Vancomycin Level Trough 25.1 ug/mL (5.0-12.0) H White Blood Count 7.9 K/UL (4.8-10.8) # Red Blood Count 3.73 M/UL (4.70-6.10) L Hemoglobin 10.2 G/DL (14.2-18.0) L Hematocrit 31.7 % (42.0-52.0) L Mean Corpuscular Volume 85 FL (80-99) Mean Corpuscular Hemoglobin 27.3 PG (27.0-31.0) Mean Corpuscular Hemoglobin Concent 32.2 G/DL (32.0-36.0) Red Cell Distribution Width 15.4 % (11.6-14.8) H Platelet Count 360 K/UL (150-450) Mean Platelet Volume 6.8 FL (6.5-10.1) Neutrophils (%) (Auto) 59.5 % (45.0-75.0) Lymphocytes (%) (Auto) 19.9 % (20.0-45.0) L Monocytes (%) (Auto) 11.3 % (1.0-10.0) H Eosinophils (%) (Auto) 8.6 % (0.0-3.0) H Basophils (%) (Auto) 0.8 % (0.0-2.0) Sodium Level 134 MMOL/L (136-145) L Potassium Level 4.3 MMOL/L (3.5-5.1) Chloride Level 101 MMOL/L (98-107) Carbon Dioxide Level 23 MMOL/L (21-32) Anion Gap 10 mmol/L (5-15) Blood Urea Nitrogen 33 mg/dL (7-18) H Creatinine 1.6 MG/DL (0.55-1.30) H Estimat Glomerular Filtration Rate 42.9 mL/min (>60) Glucose Level 99 MG/DL (74-106) Uric Acid 5.3 MG/DL (2.6-7.2) Calcium Level 10.1 MG/DL (8.5-10.1) Total Creatine Kinase 80 U/L (26-308) Current Medications Medications (Trade) Dose Ordered Sig/Wanda Route PRN Reason Start Time Stop Time Status Last Admin Dose Admin Acetaminophen (Tylenol) 650 mg Q4H PRN ORAL FEVER 02/15/19 11:00 03/17/19 10:59 Albuterol/ Ipratropium (Albuterol/ Ipratropium) 3 ml Q4H PRN HHN Shortness of Breath 02/15/19 11:00 02/20/19 10:59 Dextrose (Dextrose 50%) 25 ml Q30M PRN IV Hypoglycemia 02/15/19 11:00 03/17/19 10:59 Dextrose (Dextrose 50%) 50 ml Q30M PRN IV Hypoglycemia 02/15/19 12:45 03/17/19 12:44 Heparin Sodium (Porcine) (Heparin 5000 units/ml) 5,000 units EVERY 12 HOURS SUBQ 02/15/19 21:00 03/17/19 20:59 02/17/19 20:15 Levothyroxine Sodium (Synthroid) 75 mcg DAILY GT 02/16/19 09:00 03/18/19 08:59 02/18/19 09:06 Lorazepam (Ativan 2mg/ml 1ml) 2 mg Q2H PRN IV For Anxiety 02/15/19 11:00 02/22/19 10:59 Meropenem 1 gm/ Sodium Chloride 110 ml @ 220 mls/hr Q12HR IVPB 02/16/19 15:00 02/21/19 14:59 02/18/19 09:06 Morphine Sulfate (Morphine Sulfate) 4 mg Q4H PRN IVP Severe Pain (Pain Scale 7-10) 02/15/19 11:00 02/22/19 10:59 Ondansetron HCl (Zofran) 4 mg Q6H PRN IVP Nausea & Vomiting 02/15/19 11:00 03/17/19 10:59 Polyethylene Glycol (Miralax) 17 gm DAILYPRN PRN ORAL Constipation 02/15/19 11:00 03/17/19 10:59 Sucralfate (Carafate) 1 gm FOUR TIMES A DAY GT 02/15/19 13:00 03/17/19 12:59 02/18/19 12:44 Vancomycin HCl (Vanco rx to dose) 1 ea DAILY PRN MISC Per rx protocol 02/15/19 12:45 03/17/19 12:44 John Fiore MD Feb 18, 2019 14:53
--- NOTE | 2019-02-18 15:07 | Cardiology Report ---
APPROVED REPORT EKG Measurement Heart [id number] sinus rhythm Abnormal ECG
[2019-02-18 16:00] VITALS: BP 115/64
--- NOTE | 2019-02-18 16:08 | Diagnostic Imaging Report ---
Indication: Left renal nephrostomy abnormal BUN/creatinine. Technique: Grayscale and duplex Doppler imaging of the kidneys performed. Comparison: None Findings: Visualization is significantly limited as the patient is severely contracted. Stent is partially seen within the left kidney. There are multiple echogenic foci within both kidneys consistent with stones. There is no hydronephrosis identified. Portions of the kidneys are not seen well. The bladder demonstrates a broad-based mass versus protruding prostate gland at the base of the urinary bladder. Consider correlation with cystoscopy. There is a 1.7 cm cyst in the left kidney. IVC is patent as visualized. IMPRESSION: No hydronephrosis. Partial visualization of the kidneys. Left nephrostomy noted. Multiple nonobstructive stones. Mass versus prostate hypertrophy involving the posterior base of the urinary bladder. Consider cystoscopy for further evaluation
[2019-02-18 18:09] LABS: APPEARANCE,URINE SLIGHTLY CLOUDY; BILIRUBIN, URINE NEGATIVE (NEGATIVE); GLUCOSE, URINE (UA) NEGATIVE (NEGATIVE); KETONES,URINE 1+ (NEGATIVE); LEUKOCYTE ESTERASE ,URINE 3+ (NEGATIVE); NITRITE,URINE NEGATIVE (NEGATIVE); PH,URINE 7 (4.5-8.0); PROTEIN,URINE 2+ (NEGATIVE); UROBILINOGEN,URINE 1 MG/DL (0.0-1.0)
[2019-02-18 18:15] LABS: COLOR,URINE YELLOW
[2019-02-18 20:00] VITALS: BP 123/94
[2019-02-19] VITALS (7 sets, daily range): BP systolic 103–137; BP diastolic 57–73
[2019-02-19 05:54] LABS: BASOPHILS % (AUTO) 0.8 % (0.0-2.0); EOSINOPHILS % (AUTO) 7.3 % (0.0-3.0); HEMATOCRIT 28.1 % (42.0-52.0); MEAN CORPUSCULAR VOLUME 87 FL (80-99); MONOCYTES % (AUTO) 11.9 % (1.0-10.0); NEUTROPHILS % (AUTO) 61.9 % (45.0-75.0); PLATELET COUNT 309 K/UL (150-450); RED BLOOD COUNT 3.22 M/UL (4.70-6.10); RED CELL DISTRIBUTION WIDTH 16.1 % (11.6-14.8); WHITE BLOOD COUNT 8.7 K/UL (4.8-10.8)
[2019-02-19 06:42] LABS: ALANINE AMINOTRANSFERASE 26 U/L (12-78); ALBUMIN 3.1 G/DL (3.4-5.0); ALBUMIN/GLOBULIN RATIO 0.7 (1.0-2.7); ALKALINE PHOSPHATASE 139 U/L (46-116); ANION GAP 11 mmol/L (5-15); ASPARTATE AMINO TRANSFERASE 23 U/L (15-37); BILIRUBIN,TOTAL 0.2 MG/DL (0.2-1.0); BLOOD UREA NITROGEN 32 mg/dL (7-18); CALCIUM 9.8 MG/DL (8.5-10.1); CARBON DIOXIDE 23 MMOL/L (21-32); CHLORIDE 104 MMOL/L (98-107); CREATININE 1.3 MG/DL (0.55-1.30); PHOSPHORUS 2.6 MG/DL (2.5-4.9); POTASSIUM 4.5 MMOL/L (3.5-5.1); SODIUM 138 MMOL/L (136-145)
[2019-02-19] MEDS: Heparin 5000 units/ml inj SUBQ SCH ×2 (08:05→21:26)
[2019-02-19] MEDS: Sucralfate 1gm tab GT SCH ×4 (08:13→21:26)
[2019-02-19] MEDS: Meropenem 1gm/NS 110ml IVPB SCH ×4 (08:13→21:26)
--- NOTE | 2019-02-19 08:26 | General Progress Note ---
Assessment/Plan Problem List: (1) UTI (urinary tract infection) ICD Codes: N39.0 - Urinary tract infection, site not specified SNOMED: 27117177 (2) Nephrostomy complication ICD Codes: N99.528 - Other complication of incontinent external stoma of urinary tract SNOMED: 47299489 (3) Severe protein-calorie malnutrition ICD Codes: E43 - Unspecified severe protein-calorie malnutrition SNOMED: 704282921 (4) Feeding by G-tube ICD Codes: Z93.1 - Gastrostomy status SNOMED: 492396213, 903249183 (5) Respiratory failure, lycpi-di-dxcusyl ICD Codes: J96.20 - Respiratory failure, mmtyr-pa-jaewajp SNOMED: 48803725 (6) Anemia ICD Codes: D64.9 - Anemia, unspecified SNOMED: 826153604 (7) Hypothyroidism ICD Codes: E03.9 - Hypothyroidism, unspecified SNOMED: 16300979 (8) Alzheimer's dementia ICD Codes: G30.9 - Alzheimer's disease, unspecified SNOMED: 58721276 Status: unchanged Assessment/Plan: vent abx diert eval neph f/u cbc bmp am ltach eval Subjective Constitutional: Reports: weakness Allergies: Coded Allergies: NO KNOWN DRUG ALLERGIES (Verified Allergy, Unknown, 09/11/16) All Systems: reviewed and negative except above Subjective trach vent altered Objective Last 24 Hour Vital Signs Date Time Temp Pulse Resp B/P (MAP) Pulse Ox O2 Delivery O2 Flow Rate FiO2 02/19/19 07:03 85 18 40 02/19/19 05:13 78 19 40 02/19/19 04:00 Mechanical Ventilator 02/19/19 04:00 40 02/19/19 04:00 97.7 74 18 123/66 (85) 100 02/19/19 04:00 70 02/19/19 02:59 69 18 40 02/19/19 01:12 69 18 40 02/19/19 00:00 98.1 78 18 109/60 (76) 99 02/19/19 00:00 Mechanical Ventilator 02/19/19 00:00 77 02/19/19 00:00 40 02/18/19 22:51 77 18 40 02/18/19 21:11 75 18 40 02/18/19 20:00 73 02/18/19 20:00 Mechanical Ventilator 02/18/19 20:00 40 02/18/19 20:00 97.9 93 22 123/94 (104) 100 02/18/19 19:28 79 21 40 02/18/19 16:40 79 21 40 02/18/19 16:00 99.0 76 20 115/64 (81) 100 02/18/19 16:00 40 02/18/19 16:00 Mechanical Ventilator 02/18/19 16:00 80 02/18/19 14:30 82 20 40 02/18/19 12:32 82 20 40 02/18/19 12:00 Mechanical Ventilator 02/18/19 12:00 40 02/18/19 12:00 98.4 74 18 125/57 (79) 100 02/18/19 11:31 79 02/18/19 10:53 84 20 40 02/18/19 08:42 80 20 40 Intake and Output 02/18/19 02/19/19 19:00 07:00 Intake Total 792 ml 980 ml Output Total 315 ml 269 ml Balance 477 ml 711 ml Intake Free Water 100 ml 100 ml IV Total 220 ml Tube Feeding 632 ml 660 ml Other 60 ml Output Urine Total 300 ml 244 ml Other 15 ml 25 ml # Bowel Movements 1 Laboratory Tests 02/18/19 17:35: Urine Color Yellow, Urine Appearance Slightly cloudy, Urine pH 7, Urine Specific [place] 1.010, Urine Protein 2+H, Urine Glucose (UA) Negative, Urine Ketones 1+H, Urine Blood 3+H, Urine Nitrite Negative, Urine Bilirubin Negative, Urine Urobilinogen 1H, Urine Leukocyte Esterase 3+H, Urine RBC 2-4H, Urine WBC 60-80H, Urine Squamous Epithelial Cells Occasional, Urine Calcium Oxalate Crystals Moderate, Urine Bacteria Few, Urine Eosinophils None seen, Urine Osmolality 541H, Urine Random Creatinine [Pending], Urine Random Microalbumin [ Pending], Urine Random Sodium 67, Urine Microalbumin/Creatinine Ratio [Pending] 02/19/19 03:50: White Blood Count 8.7, Red Blood Count 3.22L, Hemoglobin 9.0L, Hematocrit 28.1L , Mean Corpuscular Volume 87, Mean Corpuscular Hemoglobin 27.9, Mean Corpuscular Hemoglobin Concent 32.0, Red Cell Distribution Width 16.1H, Platelet Count 309, Mean Platelet Volume 7.1, Neutrophils (%) (Auto) 61.9, Lymphocytes (%) (Auto) 18.0L, Monocytes (%) (Auto) 11.9H, Eosinophils (%) (Auto ) 7.3H, Basophils (%) (Auto) 0.8, Sodium Level 138, Potassium Level 4.5, Chloride Level 104, Carbon Dioxide Level 23, Anion Gap 11, Blood Urea Nitrogen 32H, Creatinine 1.3, Estimat Glomerular Filtration Rate 54.6, Glucose Level 117H , Calcium Level 9.8, Phosphorus Level 2.6, Magnesium Level 2.1, Total Bilirubin 0.2, Aspartate Amino Transf (AST/SGOT) 23, Alanine Aminotransferase (ALT/SGPT) 26, Alkaline Phosphatase 139H, Total Protein 7.5, Albumin 3.1L, Globulin 4.4, Albumin/Globulin Ratio 0.7L, Random Vancomycin Level 25.3 Height (Feet): 5 Height (Inches): 4.00 Weight (Pounds): 147 General Appearance: lethargic EENT: normal ENT inspection Neck: normal alignment Cardiovascular: normal peripheral pulses, normal rate, regular rhythm Respiratory/Chest: chest wall non-tender, lungs clear, normal breath sounds Abdomen: normal bowel sounds, non tender, soft Extremities: normal inspection Edema: no edema noted Arm (L), no edema noted Arm (R), no edema noted Leg (L), no edema noted Leg (R), no edema noted Pedal (L), no edema noted Pedal (R), no edema noted Generalized Neurologic: motor weakness Skin: normal pigmentation, warm/dry Gato Viveros DO Feb 19, 2019 08:26
[2019-02-19] MEDS ORDERED: Heparin1,000 units/500ml Premix(Conc:2 units/ml) INJ PRN (09:15)
[2019-02-19] MEDS ORDERED: Lidocaine 1% Plain 30 ml INJ PRN (09:15)
--- NOTE | 2019-02-19 09:27 | Pre-Procedure Note/Attestation ---
Pre-Procedure Note/Attestation Complete Prior to Procedure Planned Procedure: left Procedure Narrative: nephrostomy exchange Indications for Procedure Pre-Operative Diagnosis: obstructive uropathy Attestation I attest that I discussed the nature of the procedure; its benefits; risks and complications; and alternatives (and the risks and benefits of such alternatives ), prior to the procedure, with the patient (or the patient's legal customer sales representative). I attest that, if there was a reasonable possibility of needing a blood transfusion, the patient (or the patient's legal customer sales representative) was given the [facility] standardized written summary, pursuant to the Mikel Fuad Blood Safety Act ([place] Health and Safety Code # 1645, as amended). I attest that I re-evaluated the patient just prior to the surgery and that there has been no change in the patient's H&P, except as documented below: Physician consent by Alberto Calloway MD Feb 19, 2019 09:27
--- NOTE | 2019-02-19 10:50 | Pulmonolgy Critical Care Note ---
Critical Care - Asmt/Plan Problems: (1) Respiratory failure, [id number] (2) Severe sepsis (3) Nephrostomy complication (4) Severe protein-calorie malnutrition (5) Feeding by G-tube Respiratory: monitor respiratory rate, adjust FIO2, CXR Cardiac: continue to monitor HR/BP Renal: F/U I&O, check electrolytes Infectious Disease: check cultures, continue antibiotics Gastrointestinal: continue feedings/current rate Endocrine: monitor blood sugar Hematologic: transfuse if hgb<8.5 Neurologic: PRN Ativan, PRN Morphine, keep patient comfortable Prophylaxis: Protonix Disposition: keep in ICU Time Spent (Minutes): 40 Notes Reviewed: 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 with: nurses, consultants, case reviewerinformation systems project manager - Objective Last 24 Hour Vital Signs Date Time Temp Pulse Resp B/P (MAP) Pulse Ox O2 Delivery O2 Flow Rate FiO2 02/19/19 09:09 70 21 02/19/19 09:04 74 20 40 02/19/19 07:03 85 18 40 02/19/19 05:13 78 19 40 02/19/19 04:00 Mechanical Ventilator 02/19/19 04:00 40 02/19/19 04:00 97.7 74 18 123/66 (85) 100 02/19/19 04:00 70 02/19/19 02:59 69 18 40 02/19/19 01:12 69 18 40 02/19/19 00:00 98.1 78 18 109/60 (76) 99 02/19/19 00:00 Mechanical Ventilator 02/19/19 00:00 77 02/19/19 00:00 40 02/18/19 22:51 77 18 40 02/18/19 21:11 75 18 40 02/18/19 20:00 73 02/18/19 20:00 Mechanical Ventilator 02/18/19 20:00 40 02/18/19 20:00 97.9 93 22 123/94 (104) 100 02/18/19 19:28 79 21 40 02/18/19 16:40 79 21 40 02/18/19 16:00 99.0 76 20 115/64 (81) 100 02/18/19 16:00 40 02/18/19 16:00 Mechanical Ventilator 02/18/19 16:00 80 02/18/19 14:30 82 20 40 02/18/19 12:32 82 20 40 02/18/19 12:00 Mechanical Ventilator 02/18/19 12:00 40 02/18/19 12:00 98.4 74 18 125/57 (79) 100 02/18/19 11:31 79 02/18/19 10:53 84 20 40 Status: somnolent Condition: critical HEENT: atraumatic Lungs: clear Heart: HR/BP unstable Abdomen: soft Extremities: no C/C/E Decubiti: location Micro: Microbiology Date/Time Source Procedure Growth Status 02/18/19 17:35 Urine,Clean Catch Urine Culture - Preliminary NO GROWTH Resulted Critical Care - Subjective ROS Limited/Unobtainable: Yes Interval Events: late note for 02/17 FI02: 40 Vent Support Breath Rate: 18 Vent Support Mode: AC Vent Tidal Volume: 600 Sputum Amount: Small PEEP: 5.0 PIP: 26 Tube Feeding Amount: 55 I&O: Intake and Output 02/18/19 02/19/19 19:00 07:00 Intake Total 792 ml 980 ml Output Total 315 ml 269 ml Balance 477 ml 711 ml Intake Free Water 100 ml 100 ml IV Total 220 ml Tube Feeding 632 ml 660 ml Other 60 ml Output Urine Total 300 ml 244 ml Other 15 ml 25 ml # Bowel Movements 1 Huma Keating MD Feb 19, 2019 10:50
--- NOTE | 2019-02-19 10:51 | Pulmonolgy Critical Care Note ---
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 with: nurses, consultants, human services case managerhuman services case manager - Objective Last 24 Hour Vital Signs Date Time Temp Pulse Resp B/P (MAP) Pulse Ox O2 Delivery O2 Flow Rate FiO2 02/19/19 09:09 70 21 02/19/19 09:04 74 20 40 02/19/19 07:03 85 18 40 02/19/19 05:13 78 19 40 02/19/19 04:00 Mechanical Ventilator 02/19/19 04:00 40 02/19/19 04:00 97.7 74 18 123/66 (85) 100 02/19/19 04:00 70 02/19/19 02:59 69 18 40 02/19/19 01:12 69 18 40 02/19/19 00:00 98.1 78 18 109/60 (76) 99 02/19/19 00:00 Mechanical Ventilator 02/19/19 00:00 77 02/19/19 00:00 40 02/18/19 22:51 77 18 40 02/18/19 21:11 75 18 40 02/18/19 20:00 73 02/18/19 20:00 Mechanical Ventilator 02/18/19 20:00 40 02/18/19 20:00 97.9 93 22 123/94 (104) 100 02/18/19 19:28 79 21 40 02/18/19 16:40 79 21 40 02/18/19 16:00 99.0 76 20 115/64 (81) 100 02/18/19 16:00 40 02/18/19 16:00 Mechanical Ventilator 02/18/19 16:00 80 02/18/19 14:30 82 20 40 02/18/19 12:32 82 20 40 02/18/19 12:00 Mechanical Ventilator 02/18/19 12:00 40 02/18/19 12:00 98.4 74 18 125/57 (79) 100 02/18/19 11:31 79 02/18/19 10:53 84 20 40 Status: sedated Condition: critical Neck: full ROM Lungs: rales, rhonchi Heart: HR/BP stable Abdomen: active bowel sounds Extremities: no C/C/E Decubiti: stage Micro: Microbiology Date/Time Source Procedure Growth Status 02/18/19 17:35 Urine,Clean Catch Urine Culture - Preliminary NO GROWTH Resulted Critical Care - Subjective ROS Limited/Unobtainable: No Interval Events: the attempt to reinsert the nephrostomy tube was unsuccessful by radiologist. They will try again in a few days. Condition: critical EKG Rhythm: Sinus Rhythm FI02: 40 Vent Support Breath Rate: 18 Vent Support Mode: AC Vent Tidal Volume: 600 Sputum Amount: Small PEEP: 5.0 PIP: 26 Tube Feeding Amount: 55 I&O: Intake and Output 02/18/19 02/19/19 19:00 07:00 Intake Total 792 ml 980 ml Output Total 315 ml 269 ml Balance 477 ml 711 ml Intake Free Water 100 ml 100 ml IV Total 220 ml Tube Feeding 632 ml 660 ml Other 60 ml Output Urine Total 300 ml 244 ml Other 15 ml 25 ml # Bowel Movements 1 CXR: PUMA Labs: Laboratory Tests Test 02/18/19 17:35 02/19/19 03:50 Urine Color Yellow Urine Appearance Slightly cloudy Urine pH 7 (4.5-8.0) Urine Specific [place] 1.010 (1.005-1.035) Urine Protein 2+ (NEGATIVE) H Urine Glucose (UA) Negative (NEGATIVE) Urine Ketones 1+ (NEGATIVE) H Urine Blood 3+ (NEGATIVE) H Urine Nitrite Negative (NEGATIVE) Urine Bilirubin Negative (NEGATIVE) Urine Urobilinogen 1 MG/DL (0.0-1.0) H Urine Leukocyte Esterase 3+ (NEGATIVE) H Urine RBC 2-4 /HPF (0 - 0) H Urine WBC 60-80 /HPF (0 - 0) H Urine Squamous Epithelial Cells Occasional /LPF Urine Calcium Oxalate Crystals Moderate /LPF (NONE) Urine Bacteria Few /HPF (NONE) Urine Eosinophils None seen (NONE SEEN) Urine Osmolality 541 mOsm/kg (429-449) H Urine Random Creatinine Pending Urine Random Microalbumin Pending Urine Random Sodium 67 mmol/L (20-110) Urine Microalbumin/Creatinine Ratio Pending White Blood Count 8.7 K/UL (4.8-10.8) Red Blood Count 3.22 M/UL (4.70-6.10) L Hemoglobin 9.0 G/DL (14.2-18.0) L Hematocrit 28.1 % (42.0-52.0) L Mean Corpuscular Volume 87 FL (80-99) Mean Corpuscular Hemoglobin 27.9 PG (27.0-31.0) Mean Corpuscular Hemoglobin Concent 32.0 G/DL (32.0-36.0) Red Cell Distribution Width 16.1 % (11.6-14.8) H Platelet Count 309 K/UL (150-450) Mean Platelet Volume 7.1 FL (6.5-10.1) Neutrophils (%) (Auto) 61.9 % (45.0-75.0) Lymphocytes (%) (Auto) 18.0 % (20.0-45.0) L Monocytes (%) (Auto) 11.9 % (1.0-10.0) H Eosinophils (%) (Auto) 7.3 % (0.0-3.0) H Basophils (%) (Auto) 0.8 % (0.0-2.0) Sodium Level 138 MMOL/L (136-145) Potassium Level 4.5 MMOL/L (3.5-5.1) Chloride Level 104 MMOL/L (98-107) Carbon Dioxide Level 23 MMOL/L (21-32) Anion Gap 11 mmol/L (5-15) Blood Urea Nitrogen 32 mg/dL (7-18) H Creatinine 1.3 MG/DL (0.55-1.30) Estimat Glomerular Filtration Rate 54.6 mL/min (>60) Glucose Level 117 MG/DL (74-106) H Calcium Level 9.8 MG/DL (8.5-10.1) Phosphorus Level 2.6 MG/DL (2.5-4.9) Magnesium Level 2.1 MG/DL (1.8-2.4) Total Bilirubin 0.2 MG/DL (0.2-1.0) Aspartate Amino Transf (AST/SGOT) 23 U/L (15-37) Alanine Aminotransferase (ALT/SGPT) 26 U/L (12-78) Alkaline Phosphatase 139 U/L (46-116) H Total Protein 7.5 G/DL (6.4-8.2) Albumin 3.1 G/DL (3.4-5.0) L Globulin 4.4 g/dL Albumin/Globulin Ratio 0.7 (1.0-2.7) L Random Vancomycin Level 25.3 ug/mL Huma Keating MD Feb 19, 2019 10:51
--- NOTE | 2019-02-19 11:56 | Infectious Diseases Prog Note ---
Assessment/Plan Assessment/Plan 68 y/o male with multiple admissions and medical probelems who was admitted on for left nephrostomy tube change. Leukocytosis Likely sepsis from UTI left nephrostomy tube placed 12/31/18 Urine Cx 02/15/19 - Proteus - Sen to Sherly and amik Hx of Infected obstructive ureteral stone w/ adjacent abscess Reba abscess was anterior to the proximal ureter adjacent a stone not seen on the current CT scan. He is s/p 1 month Ertapenem for this. R foot lateral ulcer- not infected Hx Constipation Chronic respiratory failure trach/vent dependant Hypothyroidism GERD Hypertension Hx C. diff Dysphagia s/p G-tube Anemia. CVA/TIA w/ hemiplegia functional quadriplegia chronic encephalopathy CAD CHF Dm2 GIB s/p multiple EGDs in the past hx of severe esophagitis schizoaffective disease senior care resident multiple admissions VRE colonization Plan: - Continue meropenem #4/7 and vancomcyin #4/7 - 02/19/19 SP vancomcyin #4 - Monitor CBC and Temps - S/p Melita.Erta x 1 month - 12/23/18 SP Zosyn #11, inhaled colistin #8 for MDR P.a.for sputum organism and Fluconazole #7 for Yeast it the urine - 12/12 S/P Vancomycin and Cefepime #5 -12/08 SP Levaquin x1 -11/06 SP Amikacin #6 -11/01 SP Meropenem #4 -10/29 SP IV Vanco #2, Cefepime #2 and Tigecycline #1 -10/28 SP LEavquin x1 -10/09 SP Ertapenem #5 - 10/04 SP Meropenem #2 -10/03/18 SP IV Vancomycin #2 and Cefepime #2 -08/09/18 SP Bactrim #7 -08/03 SP Vancomycin and Cefepime #3 -08/01/18 SP Ceftriaxone x1 -Peg/trach care -aspiration precautions Thank you for this consult. We will continue to follow the patient during this hospitalization. Subjective Allergies: Coded Allergies: NO KNOWN DRUG ALLERGIES (Verified Allergy, Unknown, 09/11/16) Subjective Afebrile No Leukocytosis Objective Vital Signs Last 24 Hour Vital Signs Date Time Temp Pulse Resp B/P (MAP) Pulse Ox O2 Delivery O2 Flow Rate FiO2 02/19/19 09:09 70 21 02/19/19 09:04 74 20 40 02/19/19 08:00 40 02/19/19 08:00 98.1 84 18 116/63 (80) 100 02/19/19 08:00 Mechanical Ventilator 02/19/19 08:00 85 02/19/19 07:03 85 18 40 02/19/19 05:13 78 19 40 02/19/19 04:00 Mechanical Ventilator 02/19/19 04:00 40 02/19/19 04:00 97.7 74 18 123/66 (85) 100 02/19/19 04:00 70 02/19/19 02:59 69 18 40 02/19/19 01:12 69 18 40 02/19/19 00:00 98.1 78 18 109/60 (76) 99 02/19/19 00:00 Mechanical Ventilator 02/19/19 00:00 77 02/19/19 00:00 40 02/18/19 22:51 77 18 40 02/18/19 21:11 75 18 40 02/18/19 20:00 73 02/18/19 20:00 Mechanical Ventilator 02/18/19 20:00 40 02/18/19 20:00 97.9 93 22 123/94 (104) 100 02/18/19 19:28 79 21 40 02/18/19 16:40 79 21 40 02/18/19 16:00 99.0 76 20 115/64 (81) 100 02/18/19 16:00 40 02/18/19 16:00 Mechanical Ventilator 02/18/19 16:00 80 02/18/19 14:30 82 20 40 02/18/19 12:32 82 20 40 02/18/19 12:00 Mechanical Ventilator 02/18/19 12:00 40 02/18/19 12:00 98.4 74 18 125/57 (79) 100 Height (Feet): 5 Height (Inches): 4.00 Weight (Pounds): 147 Objective Gen: On Vent, Trached satting well HEENT: NCAT, MMM, PERRL NECK: supple, No LAD, No JVD LUNGS: CTAB, No W CARDS: RRR, S1, S2, No M/R/G, ABD: Soft, NT, ND, PEG ( No E/P), Left nephrostomy tube No (E/P) Microbiology Date/Time Source Procedure Growth Status 02/18/19 17:35 Urine,Clean Catch Urine Culture - Preliminary NO GROWTH Resulted Laboratory Tests Test 02/18/19 17:35 02/19/19 03:50 Urine Color Yellow Urine Appearance Slightly cloudy Urine pH 7 (4.5-8.0) Urine Specific [place] 1.010 (1.005-1.035) Urine Protein 2+ (NEGATIVE) H Urine Glucose (UA) Negative (NEGATIVE) Urine Ketones 1+ (NEGATIVE) H Urine Blood 3+ (NEGATIVE) H Urine Nitrite Negative (NEGATIVE) Urine Bilirubin Negative (NEGATIVE) Urine Urobilinogen 1 MG/DL (0.0-1.0) H Urine Leukocyte Esterase 3+ (NEGATIVE) H Urine RBC 2-4 /HPF (0 - 0) H Urine WBC 60-80 /HPF (0 - 0) H Urine Squamous Epithelial Cells Occasional /LPF Urine Calcium Oxalate Crystals Moderate /LPF (NONE) Urine Bacteria Few /HPF (NONE) Urine Eosinophils None seen (NONE SEEN) Urine Osmolality 541 mOsm/kg (429-449) H Urine Random Creatinine Pending Urine Random Microalbumin Pending Urine Random Sodium 67 mmol/L (20-110) Urine Microalbumin/Creatinine Ratio Pending White Blood Count 8.7 K/UL (4.8-10.8) Red Blood Count 3.22 M/UL (4.70-6.10) L Hemoglobin 9.0 G/DL (14.2-18.0) L Hematocrit 28.1 % (42.0-52.0) L Mean Corpuscular Volume 87 FL (80-99) Mean Corpuscular Hemoglobin 27.9 PG (27.0-31.0) Mean Corpuscular Hemoglobin Concent 32.0 G/DL (32.0-36.0) Red Cell Distribution Width 16.1 % (11.6-14.8) H Platelet Count 309 K/UL (150-450) Mean Platelet Volume 7.1 FL (6.5-10.1) Neutrophils (%) (Auto) 61.9 % (45.0-75.0) Lymphocytes (%) (Auto) 18.0 % (20.0-45.0) L Monocytes (%) (Auto) 11.9 % (1.0-10.0) H Eosinophils (%) (Auto) 7.3 % (0.0-3.0) H Basophils (%) (Auto) 0.8 % (0.0-2.0) Sodium Level 138 MMOL/L (136-145) Potassium Level 4.5 MMOL/L (3.5-5.1) Chloride Level 104 MMOL/L (98-107) Carbon Dioxide Level 23 MMOL/L (21-32) Anion Gap 11 mmol/L (5-15) Blood Urea Nitrogen 32 mg/dL (7-18) H Creatinine 1.3 MG/DL (0.55-1.30) Estimat Glomerular Filtration Rate 54.6 mL/min (>60) Glucose Level 117 MG/DL (74-106) H Calcium Level 9.8 MG/DL (8.5-10.1) Phosphorus Level 2.6 MG/DL (2.5-4.9) Magnesium Level 2.1 MG/DL (1.8-2.4) Total Bilirubin 0.2 MG/DL (0.2-1.0) Aspartate Amino Transf (AST/SGOT) 23 U/L (15-37) Alanine Aminotransferase (ALT/SGPT) 26 U/L (12-78) Alkaline Phosphatase 139 U/L (46-116) H Total Protein 7.5 G/DL (6.4-8.2) Albumin 3.1 G/DL (3.4-5.0) L Globulin 4.4 g/dL Albumin/Globulin Ratio 0.7 (1.0-2.7) L Random Vancomycin Level 25.3 ug/mL Current Medications Medications (Trade) Dose Ordered Sig/Wanda Route PRN Reason Start Time Stop Time Status Last Admin Dose Admin Acetaminophen (Tylenol) 650 mg Q4H PRN ORAL FEVER 02/15/19 11:00 03/17/19 10:59 Albuterol/ Ipratropium (Albuterol/ Ipratropium) 3 ml Q4H PRN HHN Shortness of Breath 02/15/19 11:00 02/20/19 10:59 Dextrose (Dextrose 50%) 25 ml Q30M PRN IV Hypoglycemia 02/15/19 11:00 03/17/19 10:59 Dextrose (Dextrose 50%) 50 ml Q30M PRN IV Hypoglycemia 02/15/19 12:45 7/8/19 12:44 Heparin Sodium (Porcine) (Heparin 5000 units/ml) 5,000 units EVERY 12 HOURS SUBQ 02/15/19 21:00 03/17/19 20:59 02/18/19 20:05 Heparin Sodium/ Sodium Chloride (Heparin 1000 units/500ml Premix) 1,000 unit ONCE PRN INJ SURGERY 02/19/19 09:15 02/19/19 18:00 Levothyroxine Sodium (Synthroid) 75 mcg DAILY GT 02/16/19 09:00 03/18/19 08:59 02/19/19 08:13 Lidocaine HCl (Xylocaine 1% 30ml) 30 ml ONCE PRN INJ SURGERY 02/19/19 09:15 02/19/19 18:00 Lorazepam (Ativan 2mg/ml 1ml) 2 mg Q2H PRN IV For Anxiety 02/15/19 11:00 02/22/19 10:59 Meropenem 1 gm/ Sodium Chloride 110 ml @ 220 mls/hr Q12HR IVPB 02/16/19 15:00 02/21/19 14:59 02/19/19 08:13 Morphine Sulfate (Morphine Sulfate) 4 mg Q4H PRN IVP Severe Pain (Pain Scale 7-10) 02/15/19 11:00 02/22/19 10:59 Ondansetron HCl (Zofran) 4 mg Q6H PRN IVP Nausea & Vomiting 02/15/19 11:00 03/17/19 10:59 Polyethylene Glycol (Miralax) 17 gm DAILYPRN PRN ORAL Constipation 02/15/19 11:00 03/17/19 10:59 Sucralfate (Carafate) 1 gm FOUR TIMES A DAY GT 02/15/19 13:00 03/17/19 12:59 02/19/19 08:13 Vancomycin HCl (Vanco rx to dose) 1 ea DAILY PRN MISC Per rx protocol 02/15/19 12:45 03/17/19 12:44 John Fiore MD Feb 19, 2019 11:56
--- NOTE | 2019-02-19 14:10 | Nephrology Progress Note ---
Assessment/Plan Problem List: (1) Acute renal failure (2) Nephrostomy complication (3) UTI (urinary tract infection) (4) Hypothyroidism Assessment Azotemia /renal failure UTI Severe protein-calorie malnutrition Hypothyroidism Low Na Tracheostomy dependence Respiratory failure, [id number] h/o GI bleed Alzheimer's Feeding by G-tube Plan Gastric support Antibiotics Electrolyte adjustment and supplement as needed pulm support monitor renal parameters Avoid Nephrotoxics check H&H per orders Subjective ROS Limited/Unobtainable: No Objective Objective Last 24 Hour Vital Signs Date Time Temp Pulse Resp B/P (MAP) Pulse Ox O2 Delivery O2 Flow Rate FiO2 02/19/19 13:26 74 16 40 02/19/19 12:00 Mechanical Ventilator 02/19/19 12:00 40 02/19/19 11:00 72 20 40 02/19/19 09:09 70 21 02/19/19 09:04 74 20 40 02/19/19 08:00 40 02/19/19 08:00 98.1 84 18 116/63 (80) 100 02/19/19 08:00 Mechanical Ventilator 02/19/19 08:00 85 02/19/19 07:03 85 18 40 02/19/19 05:13 78 19 40 02/19/19 04:00 Mechanical Ventilator 02/19/19 04:00 40 02/19/19 04:00 97.7 74 18 123/66 (85) 100 02/19/19 04:00 70 02/19/19 02:59 69 18 40 02/19/19 01:12 69 18 40 02/19/19 00:00 98.1 78 18 109/60 (76) 99 02/19/19 00:00 Mechanical Ventilator 02/19/19 00:00 77 02/19/19 00:00 40 02/18/19 22:51 77 18 40 02/18/19 21:11 75 18 40 02/18/19 20:00 73 02/18/19 20:00 Mechanical Ventilator 02/18/19 20:00 40 02/18/19 20:00 97.9 93 22 123/94 (104) 100 02/18/19 19:28 79 21 40 02/18/19 16:40 79 21 40 02/18/19 16:00 99.0 76 20 115/64 (81) 100 02/18/19 16:00 40 02/18/19 16:00 Mechanical Ventilator 02/18/19 16:00 80 02/18/19 14:30 82 20 40 Intake and Output 02/18/19 02/19/19 18:59 06:59 Intake Total 737 ml 980 ml Output Total 315 ml 269 ml Balance 422 ml 711 ml Intake Free Water 100 ml 100 ml IV Total 220 ml Tube Feeding 577 ml 660 ml Other 60 ml Output Urine Total 300 ml 244 ml Other 15 ml 25 ml # Bowel Movements 1 Laboratory Tests 02/18/19 17:35: Urine Color Yellow, Urine Appearance Slightly cloudy, Urine pH 7, Urine Specific [place] 1.010, Urine Protein 2+H, Urine Glucose (UA) Negative, Urine Ketones 1+H, Urine Blood 3+H, Urine Nitrite Negative, Urine Bilirubin Negative, Urine Urobilinogen 1H, Urine Leukocyte Esterase 3+H, Urine RBC 2-4H, Urine WBC 60-80H, Urine Squamous Epithelial Cells Occasional, Urine Calcium Oxalate Crystals Moderate, Urine Bacteria Few, Urine Eosinophils None seen, Urine Osmolality 541H, Urine Random Creatinine [Pending], Urine Random Microalbumin [ Pending], Urine Random Sodium 67, Urine Microalbumin/Creatinine Ratio [Pending] 02/19/19 03:50: White Blood Count 8.7, Red Blood Count 3.22L, Hemoglobin 9.0L, Hematocrit 28.1L , Mean Corpuscular Volume 87, Mean Corpuscular Hemoglobin 27.9, Mean Corpuscular Hemoglobin Concent 32.0, Red Cell Distribution Width 16.1H, Platelet Count 309, Mean Platelet Volume 7.1, Neutrophils (%) (Auto) 61.9, Lymphocytes (%) (Auto) 18.0L, Monocytes (%) (Auto) 11.9H, Eosinophils (%) (Auto ) 7.3H, Basophils (%) (Auto) 0.8, Sodium Level 138, Potassium Level 4.5, Chloride Level 104, Carbon Dioxide Level 23, Anion Gap 11, Blood Urea Nitrogen 32H, Creatinine 1.3, Estimat Glomerular Filtration Rate 54.6, Glucose Level 117H , Calcium Level 9.8, Phosphorus Level 2.6, Magnesium Level 2.1, Total Bilirubin 0.2, Aspartate Amino Transf (AST/SGOT) 23, Alanine Aminotransferase (ALT/SGPT) 26, Alkaline Phosphatase 139H, Total Protein 7.5, Albumin 3.1L, Globulin 4.4, Albumin/Globulin Ratio 0.7L, Random Vancomycin Level 25.3 Height (Feet): 5 Height (Inches): 4.00 Weight (Pounds): 147 General Appearance: no apparent distress Objective no change Sav Salvador MD Feb 19, 2019 14:10
--- NOTE | 2019-02-19 15:56 | Diagnostic Imaging Report ---
Indication: Chronic indwelling nephrostomy tube, needing routine replacement Technique: Attending physician consent provided on the electronic medical record by Dr. Keating. Procedural timeout performed. Total sterile technique, including sterile gloves and hand hygiene, hat, mask, sterile gown, large sterile drape, and preparation with 2% chlorhexidine utilized. At the time of commencement of the procedure, the indwelling nephrostomy tube appeared to be partially dislodged. A small amount of contrast was injected. This appeared to opacify the renal collecting system, but a considerable portion of the contrast leaked along the tract, and the pigtail was not clearly in the collecting system. Shaft of the nephrostomy was cut, and a Testif guidewire was inserted. Attempts made at directing the guidewire into the renal collecting system with a Kumpe catheter. However, catheter and wire ultimately dislodged from the body. Multiple attempts made at reaccessing the renal collecting system via the pre-existing tract using the Kumpe catheter and hydrophilic guidewire, but this was unsuccessful. Efforts were also limited by poor patient positioning because of the patient being contracted and on a tracheostomy ventilator. Attempts at reaccessing the renal collecting system ultimately abandoned. Inadvertently, no images were archived and therefore the fluoroscopy time was likewise not archived, estimated at about 3 minutes Comparison: none Findings: Follow-up abdominal radiograph demonstrates absence of the uterus nephrostomy tube Impression: Patient arrived to special procedures suite with an indwelling left nephrostomy partially dislodged. Attempts at re-establishing access unsuccessful. If and when the collecting system redilates, a de lonnie nephrostomy can be placed Procedure and findings discussed by phone with Dr. Keating at the conclusion of the procedure
[2019-02-19] MEDS ORDERED: NS 275ml ONE (16:28)
[2019-02-20] VITALS: BP 104/69
[2019-02-20 04:00] VITALS: BP 125/59
[2019-02-20 04:24] LABS: BASOPHILS % (AUTO) 0.8 % (0.0-2.0); EOSINOPHILS % (AUTO) 4.8 % (0.0-3.0); HEMATOCRIT 29.2 % (42.0-52.0); HEMOGLOBIN 9.5 G/DL (14.2-18.0); LYMPHOCYTES % (AUTO) 15.5 % (20.0-45.0); MEAN CORPUSCULAR VOLUME 85 FL (80-99); MONOCYTES % (AUTO) 11.7 % (1.0-10.0); NEUTROPHILS % (AUTO) 67.3 % (45.0-75.0); PLATELET COUNT 318 K/UL (150-450); RED BLOOD COUNT 3.43 M/UL (4.70-6.10); RED CELL DISTRIBUTION WIDTH 15.3 % (11.6-14.8); WHITE BLOOD COUNT 12.1 K/UL (4.8-10.8)
[2019-02-20 04:47] LABS: ANION GAP 11 mmol/L (5-15); BLOOD UREA NITROGEN 32 mg/dL (7-18); CALCIUM 9.5 MG/DL (8.5-10.1); CARBON DIOXIDE 21 MMOL/L (21-32); CHLORIDE 105 MMOL/L (98-107); CREATININE 1.2 MG/DL (0.55-1.30); POTASSIUM 4.2 MMOL/L (3.5-5.1); SODIUM 137 MMOL/L (136-145)
[2019-02-20 08:00] VITALS: BP 117/73
[2019-02-20] MEDS: Sucralfate 1gm tab GT SCH ×4 (08:27→20:37)
[2019-02-20] MEDS: Heparin 5000 units/ml inj SUBQ SCH ×2 (08:29→20:38)
[2019-02-20] MEDS: Meropenem 1gm/NS 110ml IVPB SCH ×4 (08:39→20:37)
--- NOTE | 2019-02-20 10:01 | Pulmonolgy Critical Care Note ---
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, 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 with: nurses, consultants Critical Care - Objective Last 24 Hour Vital Signs Date Time Temp Pulse Resp B/P (MAP) Pulse Ox O2 Delivery O2 Flow Rate FiO2 02/20/19 08:54 99 20 40 02/20/19 08:00 40 02/20/19 08:00 99.5 100 20 117/73 (88) 100 02/20/19 08:00 Mechanical Ventilator 02/20/19 06:58 91 21 100 Mechanical Ventilator 40 02/20/19 06:58 91 21 40 02/20/19 04:55 86 20 40 02/20/19 04:00 40 02/20/19 04:00 81 02/20/19 04:00 98.2 94 22 125/59 (81) 100 02/20/19 04:00 Mechanical Ventilator 02/20/19 02:52 83 21 40 02/20/19 01:04 75 18 40 02/20/19 00:00 Mechanical Ventilator 02/20/19 00:00 40 02/20/19 00:00 97.8 77 18 104/69 (81) 100 02/20/19 00:00 80 02/19/19 23:00 82 19 40 02/19/19 21:00 81 19 40 02/19/19 20:00 85 02/19/19 20:00 Mechanical Ventilator 02/19/19 20:00 98.1 88 19 119/71 (87) 100 02/19/19 20:00 40 02/19/19 19:00 63 20 40 02/19/19 17:14 68 24 40 02/19/19 16:00 97.9 73 24 137/63 (87) 98 02/19/19 16:00 Mechanical Ventilator 02/19/19 16:00 40 02/19/19 16:00 79 02/19/19 15:25 70 20 40 02/19/19 13:26 74 16 40 02/19/19 12:00 Mechanical Ventilator 02/19/19 12:00 98.0 81 18 124/73 (90) 100 02/19/19 12:00 79 02/19/19 12:00 40 02/19/19 11:00 72 20 40 Status: awake Condition: grave Neck: full ROM Heart: HR/BP stable, regular Abdomen: non-tender, feeding tube Extremities: edema Decubiti: stage Micro: Microbiology Date/Time Source Procedure Growth Status 02/18/19 17:35 Urine,Clean Catch Urine Culture - Preliminary NO GROWTH AFTER 24 HOURS Resulted Critical Care - Subjective ROS Limited/Unobtainable: Yes FI02: 40 Vent Support Breath Rate: 18 Vent Support Mode: AC Vent Tidal Volume: 600 Sputum Amount: Small PEEP: 5.0 PIP: 22 Tube Feeding Amount: 55 I&O: Intake and Output 02/19/19 02/20/19 19:00 07:00 Intake Total 930 ml 110 ml Output Total 400 ml 550 ml Balance 530 ml -440 ml Intake Free Water 105 ml IV Total 220 ml 110 ml Tube Feeding 605 ml Output Urine Total 400 ml 550 ml Labs: Laboratory Tests Test 02/20/19 03:20 White Blood Count 12.1 K/UL (4.8-10.8) H Red Blood Count 3.43 M/UL (4.70-6.10) L Hemoglobin 9.5 G/DL (14.2-18.0) L Hematocrit 29.2 % (42.0-52.0) L Mean Corpuscular Volume 85 FL (80-99) Mean Corpuscular Hemoglobin 27.9 PG (27.0-31.0) Mean Corpuscular Hemoglobin Concent 32.7 G/DL (32.0-36.0) Red Cell Distribution Width 15.3 % (11.6-14.8) H Platelet Count 318 K/UL (150-450) Mean Platelet Volume 7.7 FL (6.5-10.1) Neutrophils (%) (Auto) 67.3 % (45.0-75.0) Lymphocytes (%) (Auto) 15.5 % (20.0-45.0) L Monocytes (%) (Auto) 11.7 % (1.0-10.0) H Eosinophils (%) (Auto) 4.8 % (0.0-3.0) H Basophils (%) (Auto) 0.8 % (0.0-2.0) Sodium Level 137 MMOL/L (136-145) Potassium Level 4.2 MMOL/L (3.5-5.1) Chloride Level 105 MMOL/L (98-107) Carbon Dioxide Level 21 MMOL/L (21-32) Anion Gap 11 mmol/L (5-15) Blood Urea Nitrogen 32 mg/dL (7-18) H Creatinine 1.2 MG/DL (0.55-1.30) Estimat Glomerular Filtration Rate 59.9 mL/min (>60) Glucose Level 125 MG/DL (74-106) H Calcium Level 9.5 MG/DL (8.5-10.1) Huma Keating MD Feb 20, 2019 10:01
--- NOTE | 2019-02-20 11:59 | Infectious Diseases Prog Note ---
Assessment/Plan Assessment/Plan 68 y/o male with multiple admissions and medical probelems who was admitted on for left nephrostomy tube change. Leukocytosis Likely sepsis from UTI left nephrostomy tube placed 12/31/18 Urine Cx 02/15/19 - Proteus - Sen to [facility] and amik Hx of Infected obstructive ureteral stone w/ adjacent abscess Reba abscess was anterior to the proximal ureter adjacent a stone not seen on the current CT scan. He is s/p 1 month Ertapenem for this. R foot lateral ulcer- not infected Hx Constipation Chronic respiratory failure trach/vent dependant Hypothyroidism GERD Hypertension Hx C. diff Dysphagia s/p G-tube Anemia. CVA/TIA w/ hemiplegia functional quadriplegia chronic encephalopathy CAD CHF Dm2 GIB s/p multiple EGDs in the past hx of severe esophagitis schizoaffective disease [facility]dc resident multiple admissions VRE colonization Plan: - Continue meropenem #5/7 and vancomcyin #5/7 - 02/19/19 SP vancomcyin #4 - Monitor CBC and Temps - S/p Melita.Erta x 1 month - 12/23/18 SP Zosyn #11, inhaled colistin #8 for MDR P.a.for sputum organism and Fluconazole #7 for Yeast it the urine - 12/12 S/P Vancomycin and Cefepime #5 -12/08 SP Levaquin x1 -11/06 SP Amikacin #6 -11/01 SP Meropenem #4 -10/29 SP IV Vanco #2, Cefepime #2 and Tigecycline #1 -10/28 SP LEavquin x1 -10/09 SP Ertapenem #5 - 10/04 SP Meropenem #2 -10/03/18 SP IV Vancomycin #2 and Cefepime #2 -08/09/18 SP Bactrim #7 -08/03 SP Vancomycin and Cefepime #3 -08/01/18 SP Ceftriaxone x1 -Peg/trach care -aspiration precautions Thank you for this consult. We will continue to follow the patient during this hospitalization. Subjective Allergies: Coded Allergies: NO KNOWN DRUG ALLERGIES (Verified Allergy, Unknown, 09/11/16) Subjective LAKISHA Afebrile No Leukocytosis Objective Vital Signs Last 24 Hour Vital Signs Date Time Temp Pulse Resp B/P (MAP) Pulse Ox O2 Delivery O2 Flow Rate FiO2 02/20/19 10:54 96 19 40 02/20/19 08:54 99 20 40 02/20/19 08:00 40 02/20/19 08:00 99.5 100 20 117/73 (88) 100 02/20/19 08:00 98 02/20/19 08:00 Mechanical Ventilator 02/20/19 06:58 91 21 100 Mechanical Ventilator 40 02/20/19 06:58 91 21 40 02/20/19 04:55 86 20 40 02/20/19 04:00 40 02/20/19 04:00 81 02/20/19 04:00 98.2 94 22 125/59 (81) 100 02/20/19 04:00 Mechanical Ventilator 02/20/19 02:52 83 21 40 02/20/19 01:04 75 18 40 02/20/19 00:00 Mechanical Ventilator 02/20/19 00:00 40 02/20/19 00:00 97.8 77 18 104/69 (81) 100 02/20/19 00:00 80 02/19/19 23:00 82 19 40 02/19/19 21:00 81 19 40 02/19/19 20:00 85 02/19/19 20:00 Mechanical Ventilator 02/19/19 20:00 98.1 88 19 119/71 (87) 100 02/19/19 20:00 40 02/19/19 19:00 63 20 40 02/19/19 17:14 68 24 40 02/19/19 16:00 97.9 73 24 137/63 (87) 98 02/19/19 16:00 Mechanical Ventilator 02/19/19 16:00 40 02/19/19 16:00 79 02/19/19 15:25 70 20 40 02/19/19 13:26 74 16 40 02/19/19 12:00 Mechanical Ventilator 02/19/19 12:00 98.0 81 18 124/73 (90) 100 02/19/19 12:00 79 02/19/19 12:00 40 Height (Feet): 5 Height (Inches): 4.00 Weight (Pounds): 147 Objective Gen: On Vent HEENT: NCAT, MMM, PERRL NECK: supple, No LAD, No JVD LUNGS: CTAB, No W CARDS: RRR, S1, S2, No M/R/G, ABD: Soft, NT, ND, PEG ( No E/P), Left nephrostomy tube No (E/P) Microbiology Date/Time Source Procedure Growth Status 02/18/19 17:35 Urine,Clean Catch Urine Culture - Preliminary NO GROWTH AFTER 24 HOURS Resulted Laboratory Tests Test 02/20/19 03:20 White Blood Count 12.1 K/UL (4.8-10.8) H Red Blood Count 3.43 M/UL (4.70-6.10) L Hemoglobin 9.5 G/DL (14.2-18.0) L Hematocrit 29.2 % (42.0-52.0) L Mean Corpuscular Volume 85 FL (80-99) Mean Corpuscular Hemoglobin 27.9 PG (27.0-31.0) Mean Corpuscular Hemoglobin Concent 32.7 G/DL (32.0-36.0) Red Cell Distribution Width 15.3 % (11.6-14.8) H Platelet Count 318 K/UL (150-450) Mean Platelet Volume 7.7 FL (6.5-10.1) Neutrophils (%) (Auto) 67.3 % (45.0-75.0) Lymphocytes (%) (Auto) 15.5 % (20.0-45.0) L Monocytes (%) (Auto) 11.7 % (1.0-10.0) H Eosinophils (%) (Auto) 4.8 % (0.0-3.0) H Basophils (%) (Auto) 0.8 % (0.0-2.0) Sodium Level 137 MMOL/L (136-145) Potassium Level 4.2 MMOL/L (3.5-5.1) Chloride Level 105 MMOL/L (98-107) Carbon Dioxide Level 21 MMOL/L (21-32) Anion Gap 11 mmol/L (5-15) Blood Urea Nitrogen 32 mg/dL (7-18) H Creatinine 1.2 MG/DL (0.55-1.30) Estimat Glomerular Filtration Rate 59.9 mL/min (>60) Glucose Level 125 MG/DL (74-106) H Calcium Level 9.5 MG/DL (8.5-10.1) Current Medications Medications (Trade) Dose Ordered Sig/Wanda Route PRN Reason Start Time Stop Time Status Last Admin Dose Admin Acetaminophen (Tylenol) 650 mg Q4H PRN ORAL FEVER 02/15/19 11:00 03/17/19 10:59 Dextrose (Dextrose 50%) 25 ml Q30M PRN IV Hypoglycemia 02/15/19 11:00 03/17/19 10:59 Dextrose (Dextrose 50%) 50 ml Q30M PRN IV Hypoglycemia 02/15/19 12:45 03/17/19 12:44 Heparin Sodium (Porcine) (Heparin 5000 units/ml) 5,000 units EVERY 12 HOURS SUBQ 02/15/19 21:00 03/17/19 20:59 02/20/19 08:29 Levothyroxine Sodium (Synthroid) 75 mcg DAILY GT 02/16/19 09:00 03/18/19 08:59 02/20/19 08:27 Lorazepam (Ativan 2mg/ml 1ml) 2 mg Q2H PRN IV For Anxiety 02/15/19 11:00 02/22/19 10:59 Meropenem 1 gm/ Sodium Chloride 110 ml @ 220 mls/hr Q12HR IVPB 02/16/19 15:00 02/21/19 14:59 02/20/19 08:39 Morphine Sulfate (Morphine Sulfate) 4 mg Q4H PRN IVP Severe Pain (Pain Scale 7-10) 02/15/19 11:00 02/22/19 10:59 Ondansetron HCl (Zofran) 4 mg Q6H PRN IVP Nausea & Vomiting 02/15/19 11:00 03/17/19 10:59 Polyethylene Glycol (Miralax) 17 gm DAILYPRN PRN ORAL Constipation 02/15/19 11:00 03/17/19 10:59 Sucralfate (Carafate) 1 gm FOUR TIMES A DAY GT 02/15/19 13:00 03/17/19 12:59 02/20/19 08:27 John Fiore MD Feb 20, 2019 11:59
[2019-02-20 12:00] VITALS: BP 115/54
--- NOTE | 2019-02-20 12:31 | General Progress Note ---
Assessment/Plan Problem List: (1) UTI (urinary tract infection) ICD Codes: N39.0 - Urinary tract infection, site not specified SNOMED: 55182340 (2) Nephrostomy complication ICD Codes: N99.528 - Other complication of incontinent external stoma of urinary tract SNOMED: 91854290 (3) Severe protein-calorie malnutrition ICD Codes: E43 - Unspecified severe protein-calorie malnutrition SNOMED: 091766390 (4) Feeding by G-tube ICD Codes: Z93.1 - Gastrostomy status SNOMED: 273558512, 309038684 (5) Respiratory failure, [id number] ICD Codes: J96.20 - Respiratory failure, [id number] SNOMED: 32072895 (6) Anemia ICD Codes: D64.9 - Anemia, unspecified SNOMED: 043018021 (7) Hypothyroidism ICD Codes: E03.9 - Hypothyroidism, unspecified SNOMED: 54340699 (8) Alzheimer's dementia ICD Codes: G30.9 - Alzheimer's disease, unspecified SNOMED: 32785080 Status: unchanged Assessment/Plan: vent abx diert eval neph f/u cbc bmp am ltach eval Subjective Constitutional: Reports: weakness Allergies: Coded Allergies: NO KNOWN DRUG ALLERGIES (Verified Allergy, Unknown, 09/11/16) All Systems: reviewed and negative except above Subjective trach vent altered Objective Last 24 Hour Vital Signs Date Time Temp Pulse Resp B/P (MAP) Pulse Ox O2 Delivery O2 Flow Rate FiO2 02/20/19 10:54 96 19 40 02/20/19 08:54 99 20 40 02/20/19 08:00 40 02/20/19 08:00 99.5 100 20 117/73 (88) 100 02/20/19 08:00 98 02/20/19 08:00 Mechanical Ventilator 02/20/19 06:58 91 21 100 Mechanical Ventilator 40 02/20/19 06:58 91 21 40 02/20/19 04:55 86 20 40 02/20/19 04:00 40 02/20/19 04:00 81 02/20/19 04:00 98.2 94 22 125/59 (81) 100 02/20/19 04:00 Mechanical Ventilator 02/20/19 02:52 83 21 40 02/20/19 01:04 75 18 40 02/20/19 00:00 Mechanical Ventilator 02/20/19 00:00 40 02/20/19 00:00 97.8 77 18 104/69 (81) 100 02/20/19 00:00 80 02/19/19 23:00 82 19 40 02/19/19 21:00 81 19 40 02/19/19 20:00 85 02/19/19 20:00 Mechanical Ventilator 02/19/19 20:00 98.1 88 19 119/71 (87) 100 02/19/19 20:00 40 02/19/19 19:00 63 20 40 02/19/19 17:14 68 24 40 02/19/19 16:00 97.9 73 24 137/63 (87) 98 02/19/19 16:00 Mechanical Ventilator 02/19/19 16:00 40 02/19/19 16:00 79 02/19/19 15:25 70 20 40 02/19/19 13:26 74 16 40 Intake and Output 02/19/19 02/20/19 19:00 07:00 Intake Total 930 ml 110 ml Output Total 400 ml 550 ml Balance 530 ml -440 ml Intake Free Water 105 ml IV Total 220 ml 110 ml Tube Feeding 605 ml Output Urine Total 400 ml 550 ml Laboratory Tests 02/20/19 03:20: White Blood Count 12.1H, Red Blood Count 3.43L, Hemoglobin 9.5L, Hematocrit 29.2L, Mean Corpuscular Volume 85, Mean Corpuscular Hemoglobin 27.9, Mean Corpuscular Hemoglobin Concent 32.7, Red Cell Distribution Width 15.3H, Platelet Count 318, Mean Platelet Volume 7.7, Neutrophils (%) (Auto) 67.3, Lymphocytes (%) (Auto) 15.5L, Monocytes (%) (Auto) 11.7H, Eosinophils (%) (Auto ) 4.8H, Basophils (%) (Auto) 0.8, Sodium Level 137, Potassium Level 4.2, Chloride Level 105, Carbon Dioxide Level 21, Anion Gap 11, Blood Urea Nitrogen 32H, Creatinine 1.2, Estimat Glomerular Filtration Rate 59.9, Glucose Level 125H , Calcium Level 9.5 Height (Feet): 5 Height (Inches): 4.00 Weight (Pounds): 147 General Appearance: lethargic EENT: normal ENT inspection Neck: normal alignment Cardiovascular: normal peripheral pulses, normal rate, regular rhythm Respiratory/Chest: chest wall non-tender, lungs clear, normal breath sounds Abdomen: normal bowel sounds, non tender, soft Extremities: normal inspection Edema: no edema noted Arm (L), no edema noted Arm (R), no edema noted Leg (L), no edema noted Leg (R), no edema noted Pedal (L), no edema noted Pedal (R), no edema noted Generalized Neurologic: motor weakness Skin: normal pigmentation, warm/dry Gato Viveros DO Feb 20, 2019 12:31
--- NOTE | 2019-02-20 14:50 | Nephrology Progress Note ---
Assessment/Plan Problem List: (1) Acute renal failure (2) Nephrostomy complication (3) UTI (urinary tract infection) (4) Hypothyroidism Assessment Azotemia /renal failure UTI Severe protein-calorie malnutrition Hypothyroidism Low Na Tracheostomy dependence Respiratory failure, gktci-[id number] h/o GI bleed Alzheimer's Feeding by G-tube Plan Gastric support Antibiotics Electrolyte adjustment and supplement as needed pulm support monitor renal parameters Avoid Nephrotoxics check H&H per orders Subjective ROS Limited/Unobtainable: Yes Objective Objective Last 24 Hour Vital Signs Date Time Temp Pulse Resp B/P (MAP) Pulse Ox O2 Delivery O2 Flow Rate FiO2 02/20/19 12:36 90 21 40 02/20/19 12:00 77 02/20/19 12:00 40 02/20/19 12:00 Mechanical Ventilator 02/20/19 12:00 98.9 93 18 115/54 (74) 100 02/20/19 10:54 96 19 40 02/20/19 08:54 99 20 40 02/20/19 08:00 40 02/20/19 08:00 99.5 100 20 117/73 (88) 100 02/20/19 08:00 98 02/20/19 08:00 Mechanical Ventilator 02/20/19 06:58 91 21 100 Mechanical Ventilator 40 02/20/19 06:58 91 21 40 02/20/19 04:55 86 20 40 02/20/19 04:00 40 02/20/19 04:00 81 02/20/19 04:00 98.2 94 22 125/59 (81) 100 02/20/19 04:00 Mechanical Ventilator 02/20/19 02:52 83 21 40 02/20/19 01:04 75 18 40 02/20/19 00:00 Mechanical Ventilator 02/20/19 00:00 40 02/20/19 00:00 97.8 77 18 104/69 (81) 100 02/20/19 00:00 80 02/19/19 23:00 82 19 40 02/19/19 21:00 81 19 40 02/19/19 20:00 85 02/19/19 20:00 Mechanical Ventilator 02/19/19 20:00 98.1 88 19 119/71 (87) 100 02/19/19 20:00 40 02/19/19 19:00 63 20 40 02/19/19 17:14 68 24 40 02/19/19 16:00 97.9 73 24 137/63 (87) 98 02/19/19 16:00 Mechanical Ventilator 02/19/19 16:00 40 02/19/19 16:00 79 02/19/19 15:25 70 20 40 Intake and Output 02/19/19 02/20/19 19:00 07:00 Intake Total 930 ml 110 ml Output Total 400 ml 550 ml Balance 530 ml -440 ml Intake Free Water 105 ml IV Total 220 ml 110 ml Tube Feeding 605 ml Output Urine Total 400 ml 550 ml Laboratory Tests 02/20/19 03:20: White Blood Count 12.1H, Red Blood Count 3.43L, Hemoglobin 9.5L, Hematocrit 29.2L, Mean Corpuscular Volume 85, Mean Corpuscular Hemoglobin 27.9, Mean Corpuscular Hemoglobin Concent 32.7, Red Cell Distribution Width 15.3H, Platelet Count 318, Mean Platelet Volume 7.7, Neutrophils (%) (Auto) 67.3, Lymphocytes (%) (Auto) 15.5L, Monocytes (%) (Auto) 11.7H, Eosinophils (%) (Auto ) 4.8H, Basophils (%) (Auto) 0.8, Sodium Level 137, Potassium Level 4.2, Chloride Level 105, Carbon Dioxide Level 21, Anion Gap 11, Blood Urea Nitrogen 32H, Creatinine 1.2, Estimat Glomerular Filtration Rate 59.9, Glucose Level 125H , Calcium Level 9.5 Height (Feet): 5 Height (Inches): 4.00 Weight (Pounds): 147 General Appearance: no apparent distress Cardiovascular: tachycardia Respiratory/Chest: decreased breath sounds Abdomen: distended Objective no change Sav Salvador MD Feb 20, 2019 14:50
[2019-02-20 16:00] VITALS: BP 115/69
[2019-02-20 20:00] VITALS: BP 108/66
[2019-02-21] VITALS: BP 152/59
[2019-02-21 04:00] VITALS: BP 106/57
[2019-02-21 05:45] LABS: BASOPHILS % (AUTO) 0.9 % (0.0-2.0); EOSINOPHILS % (AUTO) 5.7 % (0.0-3.0); HEMATOCRIT 30.9 % (42.0-52.0); HEMOGLOBIN 9.9 G/DL (14.2-18.0); LYMPHOCYTES % (AUTO) 15.9 % (20.0-45.0); MEAN CORPUSCULAR VOLUME 87 FL (80-99); MONOCYTES % (AUTO) 14.1 % (1.0-10.0); NEUTROPHILS % (AUTO) 63.5 % (45.0-75.0); PLATELET COUNT 310 K/UL (150-450); RED BLOOD COUNT 3.54 M/UL (4.70-6.10); RED CELL DISTRIBUTION WIDTH 16.1 % (11.6-14.8); WHITE BLOOD COUNT 10.4 K/UL (4.8-10.8)
[2019-02-21 06:25] LABS: ANION GAP 10 mmol/L (5-15); BLOOD UREA NITROGEN 35 mg/dL (7-18); CALCIUM 10.1 MG/DL (8.5-10.1); CARBON DIOXIDE 24 MMOL/L (21-32); CHLORIDE 107 MMOL/L (98-107); CREATININE 1.1 MG/DL (0.55-1.30); POTASSIUM 4.5 MMOL/L (3.5-5.1); SODIUM 141 MMOL/L (136-145)
[2019-02-21 08:00] VITALS: BP 101/77
[2019-02-21] MEDS: Sucralfate 1gm tab GT SCH ×4 (08:42→20:34)
[2019-02-21] MEDS: Heparin 5000 units/ml inj SUBQ SCH ×2 (08:49→20:35)
[2019-02-21] MEDS: Meropenem 1gm/NS 110ml IVPB SCH ×4 (08:50→20:33)
--- NOTE | 2019-02-21 09:44 | Infectious Diseases Prog Note ---
Assessment/Plan Assessment/Plan 68 y/o male with multiple admissions and medical probelems who was admitted on for left nephrostomy tube change. Leukocytosis Likely sepsis from UTI left nephrostomy tube placed 12/31/18 Urine Cx 02/15/19 - Proteus - Sen to [facility] and amik Hx of Infected obstructive ureteral stone w/ adjacent abscess Reba abscess was anterior to the proximal ureter adjacent a stone not seen on the current CT scan. He is s/p 1 month Ertapenem for this. R foot lateral ulcer- not infected Hx Constipation Chronic respiratory failure trach/vent dependant Hypothyroidism GERD Hypertension Hx C. diff Dysphagia s/p G-tube Anemia. CVA/TIA w/ hemiplegia functional quadriplegia chronic encephalopathy CAD CHF Dm2 GIB s/p multiple EGDs in the past hx of severe esophagitis schizoaffective disease [facility] resident multiple admissions VRE colonization Plan: - Continue meropenem #6/7 and vancomcyin #6/7 (End date 02/22/19) - 02/19/19 SP vancomcyin #4 - Monitor CBC and Temps - S/p Melita.Erta x 1 month - 12/23/18 SP Zosyn #11, inhaled colistin #8 for MDR P.a.for sputum organism and Fluconazole #7 for Yeast it the urine - 12/12 S/P Vancomycin and Cefepime #5 -12/08 SP Levaquin x1 -11/06 SP Amikacin #6 -11/01 SP Meropenem #4 -10/29 SP IV Vanco #2, Cefepime #2 and Tigecycline #1 -10/28 SP LEavquin x1 -10/09 SP Ertapenem #5 - 10/04 SP Meropenem #2 -10/03/18 SP IV Vancomycin #2 and Cefepime #2 -08/09/18 SP Bactrim #7 -08/03 SP Vancomycin and Cefepime #3 -08/01/18 SP Ceftriaxone x1 -Peg/trach care -aspiration precautions Thank you for this consult. We will continue to follow the patient during this hospitalization. Subjective Allergies: Coded Allergies: NO KNOWN DRUG ALLERGIES (Verified Allergy, Unknown, 09/11/16) Subjective Satting well Afebrile No Leukocytosis Objective Vital Signs Last 24 Hour Vital Signs Date Time Temp Pulse Resp B/P (MAP) Pulse Ox O2 Delivery O2 Flow Rate FiO2 02/21/19 09:16 81 18 40 02/21/19 08:02 83 02/21/19 08:00 40 02/21/19 08:00 98.2 84 18 101/77 (85) 100 02/21/19 08:00 Mechanical Ventilator 02/21/19 07:44 84 20 40 02/21/19 05:21 83 18 40 02/21/19 04:00 Mechanical Ventilator 02/21/19 04:00 98.5 80 18 106/57 (73) 100 02/21/19 04:00 40 02/21/19 03:26 81 02/21/19 02:55 79 24 40 02/21/19 00:59 71 20 40 02/21/19 00:00 Mechanical Ventilator 02/21/19 00:00 40 02/21/19 00:00 97.9 71 23 152/59 (90) 100 02/20/19 23:52 72 02/20/19 23:00 78 21 40 02/20/19 21:23 75 21 40 02/20/19 20:00 98.2 78 22 108/66 (80) 100 02/20/19 20:00 40 02/20/19 20:00 Mechanical Ventilator 02/20/19 19:12 79 02/20/19 18:49 82 23 40 02/20/19 18:10 98.6 02/20/19 16:56 92 21 40 02/20/19 16:00 101.1 96 22 115/69 (84) 100 02/20/19 16:00 40 02/20/19 16:00 Mechanical Ventilator 02/20/19 16:00 97 02/20/19 15:50 92 20 40 02/20/19 12:36 90 21 40 02/20/19 12:00 77 02/20/19 12:00 40 02/20/19 12:00 Mechanical Ventilator 02/20/19 12:00 98.9 93 18 115/54 (74) 100 02/20/19 10:54 96 19 40 Height (Feet): 5 Height (Inches): 4.00 Weight (Pounds): 147 Objective Gen: NAD HEENT: NCAT, MMM, PERRL NECK: supple, No LAD, No JVD LUNGS: CTAB, No W CARDS: RRR, S1, S2, No M/R/G, ABD: Soft, NT, ND, PEG ( No E/P), Left nephrostomy tube No (E/P) Microbiology Date/Time Source Procedure Growth Status 02/18/19 17:35 Urine,Clean Catch Urine Culture - Final NO GROWTH AFTER 48 HOURS Complete Laboratory Tests Test 02/21/19 03:20 White Blood Count 10.4 K/UL (4.8-10.8) Red Blood Count 3.54 M/UL (4.70-6.10) L Hemoglobin 9.9 G/DL (14.2-18.0) L Hematocrit 30.9 % (42.0-52.0) L Mean Corpuscular Volume 87 FL (80-99) Mean Corpuscular Hemoglobin 27.9 PG (27.0-31.0) Mean Corpuscular Hemoglobin Concent 32.0 G/DL (32.0-36.0) Red Cell Distribution Width 16.1 % (11.6-14.8) H Platelet Count 310 K/UL (150-450) Mean Platelet Volume 7.3 FL (6.5-10.1) Neutrophils (%) (Auto) 63.5 % (45.0-75.0) Lymphocytes (%) (Auto) 15.9 % (20.0-45.0) L Monocytes (%) (Auto) 14.1 % (1.0-10.0) H Eosinophils (%) (Auto) 5.7 % (0.0-3.0) H Basophils (%) (Auto) 0.9 % (0.0-2.0) Sodium Level 141 MMOL/L (136-145) Potassium Level 4.5 MMOL/L (3.5-5.1) Chloride Level 107 MMOL/L (98-107) Carbon Dioxide Level 24 MMOL/L (21-32) Anion Gap 10 mmol/L (5-15) Blood Urea Nitrogen 35 mg/dL (7-18) H Creatinine 1.1 MG/DL (0.55-1.30) Estimat Glomerular Filtration Rate > 60 mL/min (>60) Glucose Level 112 MG/DL (74-106) H Calcium Level 10.1 MG/DL (8.5-10.1) Current Medications Medications (Trade) Dose Ordered Sig/Wanda Route PRN Reason Start Time Stop Time Status Last Admin Dose Admin Acetaminophen (Tylenol) 650 mg Q4H PRN ORAL FEVER 02/15/19 11:00 03/17/19 10:59 02/20/19 17:40 Dextrose (Dextrose 50%) 25 ml Q30M PRN IV Hypoglycemia 02/15/19 11:00 03/17/19 10:59 Dextrose (Dextrose 50%) 50 ml Q30M PRN IV Hypoglycemia 02/15/19 12:45 03/17/19 12:44 Heparin Sodium (Porcine) (Heparin 5000 units/ml) 5,000 units EVERY 12 HOURS SUBQ 02/15/19 21:00 03/17/19 20:59 02/21/19 08:49 Levothyroxine Sodium (Synthroid) 75 mcg DAILY GT 02/16/19 09:00 03/18/19 08:59 02/21/19 08:42 Lorazepam (Ativan 2mg/ml 1ml) 2 mg Q2H PRN IV For Anxiety 02/15/19 11:00 02/22/19 10:59 Meropenem 1 gm/ Sodium Chloride 110 ml @ 220 mls/hr Q12HR IVPB 02/16/19 15:00 02/23/19 14:59 02/21/19 08:50 Morphine Sulfate (Morphine Sulfate) 4 mg Q4H PRN IVP Severe Pain (Pain Scale 7-10) 02/15/19 11:00 02/22/19 10:59 Ondansetron HCl (Zofran) 4 mg Q6H PRN IVP Nausea & Vomiting 02/15/19 11:00 03/17/19 10:59 Polyethylene Glycol (Miralax) 17 gm DAILYPRN PRN ORAL Constipation 02/15/19 11:00 03/17/19 10:59 Sucralfate (Carafate) 1 gm FOUR TIMES A DAY GT 02/15/19 13:00 03/17/19 12:59 02/21/19 08:42 John Fiore MD Feb 21, 2019 09:44
--- NOTE | 2019-02-21 10:26 | Pulmonolgy Critical Care Note ---
Critical Care - Asmt/Plan Problems: (1) Respiratory failure, [id number] (2) Severe sepsis (3) Nephrostomy complication (4) Severe protein-calorie malnutrition (5) Feeding by G-tube Respiratory: monitor respiratory rate, adjust FIO2 Renal: F/U I&O, keep IV fluid Infectious Disease: check cultures, continue antibiotics Gastrointestinal: continue feedings/current rate Endocrine: monitor blood sugar Affect: PRN ativan Prophylaxis: Protonix Disposition: keep in ICU Notes Reviewed: 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 with: nurses, consultants, patient case manager, other - the form for PG to obtain DNR order filled out. Critical Care - Objective Last 24 Hour Vital Signs Date Time Temp Pulse Resp B/P (MAP) Pulse Ox O2 Delivery O2 Flow Rate FiO2 02/21/19 09:16 81 18 40 02/21/19 08:02 83 02/21/19 08:00 40 02/21/19 08:00 98.2 84 18 101/77 (85) 100 02/21/19 08:00 Mechanical Ventilator 02/21/19 07:44 84 20 40 02/21/19 05:21 83 18 40 02/21/19 04:00 Mechanical Ventilator 02/21/19 04:00 98.5 80 18 106/57 (73) 100 02/21/19 04:00 40 02/21/19 03:26 81 02/21/19 02:55 79 24 40 02/21/19 00:59 71 20 40 02/21/19 00:00 Mechanical Ventilator 02/21/19 00:00 40 02/21/19 00:00 97.9 71 23 152/59 (90) 100 02/20/19 23:52 72 02/20/19 23:00 78 21 40 02/20/19 21:23 75 21 40 02/20/19 20:00 98.2 78 22 108/66 (80) 100 02/20/19 20:00 40 02/20/19 20:00 Mechanical Ventilator 02/20/19 19:12 79 02/20/19 18:49 82 23 40 02/20/19 18:10 98.6 02/20/19 16:56 92 21 40 02/20/19 16:00 101.1 96 22 115/69 (84) 100 02/20/19 16:00 40 02/20/19 16:00 Mechanical Ventilator 02/20/19 16:00 97 02/20/19 15:50 92 20 40 02/20/19 12:36 90 21 40 02/20/19 12:00 77 02/20/19 12:00 40 02/20/19 12:00 Mechanical Ventilator 02/20/19 12:00 98.9 93 18 115/54 (74) 100 02/20/19 10:54 96 19 40 Status: somnolent Condition: critical HEENT: atraumatic Lungs: clear Heart: HR/BP unstable Abdomen: non-tender, feeding tube Extremities: edema Micro: Microbiology Date/Time Source Procedure Growth Status 02/18/19 17:35 Urine,Clean Catch Urine Culture - Final NO GROWTH AFTER 48 HOURS Complete Critical Care - Subjective ROS Limited/Unobtainable: Yes Condition: critical EKG Rhythm: Sinus Rhythm FI02: 40 Vent Support Breath Rate: 18 Vent Support Mode: AC Vent Tidal Volume: 600 Sputum Amount: Small PEEP: 5.0 PIP: 21 Tube Feeding Amount: 55 I&O: Intake and Output 02/20/19 02/21/19 19:00 07:00 Intake Total 695 ml 970 ml Output Total 275 ml 550 ml Balance 420 ml 420 ml Intake Free Water 90 ml 200 ml IV Total 110 ml Tube Feeding 605 ml 660 ml Output Urine Total 275 ml 550 ml CXR: no new changes Labs: Laboratory Tests Test 02/21/19 03:20 White Blood Count 10.4 K/UL (4.8-10.8) Red Blood Count 3.54 M/UL (4.70-6.10) L Hemoglobin 9.9 G/DL (14.2-18.0) L Hematocrit 30.9 % (42.0-52.0) L Mean Corpuscular Volume 87 FL (80-99) Mean Corpuscular Hemoglobin 27.9 PG (27.0-31.0) Mean Corpuscular Hemoglobin Concent 32.0 G/DL (32.0-36.0) Red Cell Distribution Width 16.1 % (11.6-14.8) H Platelet Count 310 K/UL (150-450) Mean Platelet Volume 7.3 FL (6.5-10.1) Neutrophils (%) (Auto) 63.5 % (45.0-75.0) Lymphocytes (%) (Auto) 15.9 % (20.0-45.0) L Monocytes (%) (Auto) 14.1 % (1.0-10.0) H Eosinophils (%) (Auto) 5.7 % (0.0-3.0) H Basophils (%) (Auto) 0.9 % (0.0-2.0) Sodium Level 141 MMOL/L (136-145) Potassium Level 4.5 MMOL/L (3.5-5.1) Chloride Level 107 MMOL/L (98-107) Carbon Dioxide Level 24 MMOL/L (21-32) Anion Gap 10 mmol/L (5-15) Blood Urea Nitrogen 35 mg/dL (7-18) H Creatinine 1.1 MG/DL (0.55-1.30) Estimat Glomerular Filtration Rate > 60 mL/min (>60) Glucose Level 112 MG/DL (74-106) H Calcium Level 10.1 MG/DL (8.5-10.1) Huma Keating MD Feb 21, 2019 10:26
[2019-02-21 12:00] VITALS: BP 107/72
--- NOTE | 2019-02-21 13:49 | General Progress Note ---
Assessment/Plan Problem List: (1) UTI (urinary tract infection) ICD Codes: N39.0 - Urinary tract infection, site not specified SNOMED: 26785668 (2) Nephrostomy complication ICD Codes: N99.528 - Other complication of incontinent external stoma of urinary tract SNOMED: 24691242 (3) Severe protein-calorie malnutrition ICD Codes: E43 - Unspecified severe protein-calorie malnutrition SNOMED: 861917529 (4) Feeding by G-tube ICD Codes: Z93.1 - Gastrostomy status SNOMED: 062535980, 175583459 (5) Respiratory failure, bqudx-sy-vgwkgic ICD Codes: J96.20 - Respiratory failure, crlxh-rw-izalysx SNOMED: 98594542 (6) Anemia ICD Codes: D64.9 - Anemia, unspecified SNOMED: 693763257 (7) Hypothyroidism ICD Codes: E03.9 - Hypothyroidism, unspecified SNOMED: 92544304 (8) Alzheimer's dementia ICD Codes: G30.9 - Alzheimer's disease, unspecified SNOMED: 31233085 Status: unchanged Assessment/Plan: vent abx diert eval neph f/u cbc bmp am ltach eval Subjective Constitutional: Reports: weakness Allergies: Coded Allergies: NO KNOWN DRUG ALLERGIES (Verified Allergy, Unknown, 09/11/16) All Systems: reviewed and negative except above Subjective trach vent altered Objective Last 24 Hour Vital Signs Date Time Temp Pulse Resp B/P (MAP) Pulse Ox O2 Delivery O2 Flow Rate FiO2 02/21/19 13:11 80 18 40 02/21/19 12:00 40 02/21/19 12:00 98.8 86 18 107/72 (84) 100 02/21/19 12:00 Mechanical Ventilator 02/21/19 12:00 74 02/21/19 11:08 79 18 40 02/21/19 09:16 81 18 40 02/21/19 08:02 83 02/21/19 08:00 40 02/21/19 08:00 98.2 84 18 101/77 (85) 100 02/21/19 08:00 Mechanical Ventilator 02/21/19 07:44 84 20 40 02/21/19 05:21 83 18 40 02/21/19 04:00 Mechanical Ventilator 02/21/19 04:00 98.5 80 18 106/57 (73) 100 6/14/19 04:00 40 02/21/19 03:26 81 02/21/19 02:55 79 24 40 02/21/19 00:59 71 20 40 02/21/19 00:00 Mechanical Ventilator 02/21/19 00:00 40 02/21/19 00:00 97.9 71 23 152/59 (90) 100 02/20/19 23:52 72 02/20/19 23:00 78 21 40 02/20/19 21:23 75 21 40 02/20/19 20:00 98.2 78 22 108/66 (80) 100 02/20/19 20:00 40 02/20/19 20:00 Mechanical Ventilator 02/20/19 19:12 79 02/20/19 18:49 82 23 40 02/20/19 18:10 98.6 02/20/19 16:56 92 21 40 02/20/19 16:00 101.1 96 22 115/69 (84) 100 02/20/19 16:00 40 02/20/19 16:00 Mechanical Ventilator 02/20/19 16:00 97 02/20/19 15:50 92 20 40 Intake and Output 02/20/19 02/21/19 19:00 07:00 Intake Total 695 ml 970 ml Output Total 275 ml 550 ml Balance 420 ml 420 ml Intake Free Water 90 ml 200 ml IV Total 110 ml Tube Feeding 605 ml 660 ml Output Urine Total 275 ml 550 ml Laboratory Tests 02/21/19 03:20: White Blood Count 10.4, Red Blood Count 3.54L, Hemoglobin 9.9L, Hematocrit 30.9L , Mean Corpuscular Volume 87, Mean Corpuscular Hemoglobin 27.9, Mean Corpuscular Hemoglobin Concent 32.0, Red Cell Distribution Width 16.1H, Platelet Count 310, Mean Platelet Volume 7.3, Neutrophils (%) (Auto) 63.5, Lymphocytes (%) (Auto) 15.9L, Monocytes (%) (Auto) 14.1H, Eosinophils (%) (Auto ) 5.7H, Basophils (%) (Auto) 0.9, Sodium Level 141, Potassium Level 4.5, Chloride Level 107, Carbon Dioxide Level 24, Anion Gap 10, Blood Urea Nitrogen 35H, Creatinine 1.1, Estimat Glomerular Filtration Rate > 60, Glucose Level 112H , Calcium Level 10.1 Height (Feet): 5 Height (Inches): 4.00 Weight (Pounds): 147 General Appearance: lethargic EENT: normal ENT inspection Neck: normal alignment Cardiovascular: normal peripheral pulses, normal rate, regular rhythm Respiratory/Chest: chest wall non-tender, lungs clear, normal breath sounds Abdomen: normal bowel sounds, non tender, soft Extremities: normal inspection Edema: no edema noted Arm (L), no edema noted Arm (R), no edema noted Leg (L), no edema noted Leg (R), no edema noted Pedal (L), no edema noted Pedal (R), no edema noted Generalized Neurologic: motor weakness Skin: normal pigmentation, warm/dry Gato Viveros DO Feb 21, 2019 13:49
--- NOTE | 2019-02-21 14:47 | Nephrology Progress Note ---
Assessment/Plan Problem List: (1) Acute renal failure (2) Nephrostomy complication (3) UTI (urinary tract infection) (4) Hypothyroidism Assessment Azotemia /renal failure UTI Severe protein-calorie malnutrition Hypothyroidism Low Na Tracheostomy dependence Respiratory failure, cawfn-lw-tnvinpn h/o GI bleed Alzheimer's Feeding by G-tube Plan Gastric support Antibiotics Electrolyte adjustment and supplement as needed pulm support monitor renal parameters Avoid Nephrotoxics check H&H per orders Subjective ROS Limited/Unobtainable: Yes Objective Objective Last 24 Hour Vital Signs Date Time Temp Pulse Resp B/P (MAP) Pulse Ox O2 Delivery O2 Flow Rate FiO2 02/21/19 13:11 80 18 40 02/21/19 12:00 40 02/21/19 12:00 98.8 86 18 107/72 (84) 100 02/21/19 12:00 Mechanical Ventilator 02/21/19 12:00 74 02/21/19 11:08 79 18 40 02/21/19 09:16 81 18 40 02/21/19 08:02 83 02/21/19 08:00 40 02/21/19 08:00 98.2 84 18 101/77 (85) 100 02/21/19 08:00 Mechanical Ventilator 02/21/19 07:44 84 20 40 02/21/19 05:21 83 18 40 02/21/19 04:00 Mechanical Ventilator 02/21/19 04:00 98.5 80 18 106/57 (73) 100 02/21/19 04:00 40 02/21/19 03:26 81 02/21/19 02:55 79 24 40 02/21/19 00:59 71 20 40 02/21/19 00:00 Mechanical Ventilator 02/21/19 00:00 40 02/21/19 00:00 97.9 71 23 152/59 (90) 100 02/20/19 23:52 72 02/20/19 23:00 78 21 40 02/20/19 21:23 75 21 40 02/20/19 20:00 98.2 78 22 108/66 (80) 100 02/20/19 20:00 40 02/20/19 20:00 Mechanical Ventilator 02/20/19 19:12 79 02/20/19 18:49 82 23 40 02/20/19 18:10 98.6 02/20/19 16:56 92 21 40 02/20/19 16:00 101.1 96 22 115/69 (84) 100 02/20/19 16:00 40 02/20/19 16:00 Mechanical Ventilator 02/20/19 16:00 97 02/20/19 15:50 92 20 40 Intake and Output 02/20/19 02/21/19 19:00 07:00 Intake Total 695 ml 970 ml Output Total 275 ml 550 ml Balance 420 ml 420 ml Intake Free Water 90 ml 200 ml IV Total 110 ml Tube Feeding 605 ml 660 ml Output Urine Total 275 ml 550 ml Laboratory Tests 02/21/19 03:20: White Blood Count 10.4, Red Blood Count 3.54L, Hemoglobin 9.9L, Hematocrit 30.9L , Mean Corpuscular Volume 87, Mean Corpuscular Hemoglobin 27.9, Mean Corpuscular Hemoglobin Concent 32.0, Red Cell Distribution Width 16.1H, Platelet Count 310, Mean Platelet Volume 7.3, Neutrophils (%) (Auto) 63.5, Lymphocytes (%) (Auto) 15.9L, Monocytes (%) (Auto) 14.1H, Eosinophils (%) (Auto ) 5.7H, Basophils (%) (Auto) 0.9, Sodium Level 141, Potassium Level 4.5, Chloride Level 107, Carbon Dioxide Level 24, Anion Gap 10, Blood Urea Nitrogen 35H, Creatinine 1.1, Estimat Glomerular Filtration Rate > 60, Glucose Level 112H , Calcium Level 10.1 Height (Feet): 5 Height (Inches): 4.00 Weight (Pounds): 147 General Appearance: no apparent distress EENT: other - trach Cardiovascular: normal rate Respiratory/Chest: decreased breath sounds Abdomen: distended Objective no change Sav Salvador MD Feb 21, 2019 14:47
[2019-02-21 16:00] VITALS: BP 126/70
[2019-02-21 20:00] VITALS: BP 117/66
[2019-02-22] VITALS: BP 127/81
[2019-02-22 04:00] VITALS: BP 115/68
[2019-02-22 05:32] LABS: BASOPHILS % (AUTO) 1.1 % (0.0-2.0); EOSINOPHILS % (AUTO) 5.2 % (0.0-3.0); HEMATOCRIT 36.9 % (42.0-52.0); HEMOGLOBIN 11.7 G/DL (14.2-18.0); LYMPHOCYTES % (AUTO) 25.2 % (20.0-45.0); MEAN CORPUSCULAR VOLUME 87 FL (80-99); MONOCYTES % (AUTO) 6.7 % (1.0-10.0); NEUTROPHILS % (AUTO) 61.8 % (45.0-75.0); PLATELET COUNT 308 K/UL (150-450); RED BLOOD COUNT 4.26 M/UL (4.70-6.10); RED CELL DISTRIBUTION WIDTH 15.8 % (11.6-14.8)
[2019-02-22 06:13] LABS: ANION GAP 14 mmol/L (5-15); BLOOD UREA NITROGEN 37 mg/dL (7-18); CALCIUM 10.6 MG/DL (8.5-10.1); CARBON DIOXIDE 23 MMOL/L (21-32); CHLORIDE 106 MMOL/L (98-107); CREATININE 1.2 MG/DL (0.55-1.30); POTASSIUM 5.2 MMOL/L (3.5-5.1); SODIUM 143 MMOL/L (136-145)
[2019-02-22 08:00] VITALS: BP 127/76
[2019-02-22] MEDS: Sucralfate 1gm tab GT SCH ×4 (08:26→20:44)
[2019-02-22] MEDS: Heparin 5000 units/ml inj SUBQ SCH ×2 (08:27→20:45)
[2019-02-22] MEDS: Meropenem 1gm/NS 110ml IVPB SCH ×2 (08:31)
--- NOTE | 2019-02-22 09:01 | Pulmonology Progress Note ---
Assessment/Plan Assessment/Plan ASSESSMENT sepsis secondary to UTI Proteus ESBL UTI s/p nephrostomy placement in IV 2019 History of infected obstructive ureteral stone with adjacent abscess Acute on chronic respiratory failure with ventilator dependency Tracheostomy status Acute renal failure Nephrostomy complication Chronic hydronephrosis on the left Left renal atrophy Hypothyroidism History of C. difficile Dysphagia , status post G-tube Anemia History of CVA and hemiplegia Functional quadriplegia Chronic encephalopathy Diabetes mellitus type 2 Coronary artery disease CHF History of GI bleeding , status post multiply EGD Erosive esophagitis Severe protein calorie malnutrition PLAN OF CARE LUIS status vent support, trach care, baseline ABG noted, decrease AC rate to 16, and repeat ABG in am pulmonary toilet CXR today abx as per ID recommendation repeated urine culture 02/18 no evidence of growth urology evaluation appreciated patient not a surgical candidate; per urology recommendation keep nephrostomy tube and change every 3 to 4 months acute renal failure resolved with hydration creatinine down to normal avoid nephrotoxic monitor renal parameters and electrolytes, replace electrolyte as needed, treat hyper K today 02/22, check K in 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 renal ultrasound-no hydronephrosis, mass versus prostate hypertrophy involving the posterior base of the urinary bladder nephrostomy tube was dislodged, interventional radiology was unable to reestablish access recommended when the collecting system re-dilates, then a new nephrostomy tube can be placed CT abdomen pelvis noted: persistent 1.8 cm stone in the proximal mid left ureter percutaneous left nephrostomy tube noted bronchial wall thickening concerning for bronchitis, reticulonodular density in the lower lungs and mild patchy densities concerning for infectious/ inflammatory process status post Rx venous duplex bilateral lower extremity revealed chronic thrombus left lower extremity, superficial femoral vein DVT prophylaxis monitor H&H with goal to keep hemoglobin above 7 anemia work-up noted aspiration precaution, G-tube feeding pain management bowel regimen supportive care LTAC eval pending dietary recs implemented in POC case discussed and evaluated by supervising physician Subjective Allergies: Coded Allergies: NO KNOWN DRUG ALLERGIES (Verified Allergy, Unknown, 09/11/16) Subjective afebrile, no leukocytosis no signs of resp distress Objective Last 24 Hour Vital Signs Date Time Temp Pulse Resp B/P (MAP) Pulse Ox O2 Delivery O2 Flow Rate FiO2 02/22/19 08:00 Mechanical Ventilator 02/22/19 08:00 40 02/22/19 07:29 74 18 40 6/15/19 04:54 84 19 40 02/22/19 04:01 85 02/22/19 04:00 98.2 85 19 115/68 (84) 100 02/22/19 04:00 40 02/22/19 04:00 Mechanical Ventilator 02/22/19 03:07 82 21 40 02/22/19 01:11 81 20 40 02/22/19 00:00 Mechanical Ventilator 02/22/19 00:00 97.9 89 22 127/81 (96) 100 02/21/19 23:42 84 02/21/19 23:05 87 23 40 02/21/19 21:26 74 18 40 02/21/19 20:00 Mechanical Ventilator 02/21/19 20:00 40 02/21/19 20:00 97.9 76 18 117/66 (83) 100 02/21/19 19:43 77 02/21/19 18:44 77 19 40 02/21/19 17:30 76 19 40 02/21/19 16:00 98.2 84 18 126/70 (88) 100 02/21/19 16:00 40 02/21/19 16:00 Mechanical Ventilator 02/21/19 16:00 82 02/21/19 15:41 77 18 40 02/21/19 13:11 80 18 40 02/21/19 12:00 40 02/21/19 12:00 98.8 86 18 107/72 (84) 100 02/21/19 12:00 Mechanical Ventilator 02/21/19 12:00 74 02/21/19 11:08 79 18 40 02/21/19 09:16 81 18 40 Intake and Output 02/21/19 02/22/19 19:00 07:00 Intake Total 920 ml 865 ml Output Total 325 ml 800 ml Balance 595 ml 65 ml Intake Free Water 150 ml 150 ml IV Total 110 ml 110 ml Tube Feeding 660 ml 605 ml Output Urine Total 325 ml 800 ml General Appearance: no acute distress, cachetic, other - bedridden on vent AV 60-16-40% HEENT: normocephalic, atraumatic, anicteric, status post trach - Shiley#[id number], secretions moderate, white, thick Respiratory/Chest: other - scattered rhonchi Cardiovascular: normal rate, regular rhythm Abdomen: normal bowel sounds, soft, non tender, other - G tube Extremities: no edema, pedal pulses normal Neurologic/Psychiatric: other - bedridden, contracted not responsive to verbal stimuli Musculoskeletal: atrophy - BLE Laboratory Tests 02/22/19 04:40: White Blood Count 9.0, Red Blood Count 4.26L, Hemoglobin 11.7L, Hematocrit 36.9L , Mean Corpuscular Volume 87, Mean Corpuscular Hemoglobin 27.4, Mean Corpuscular Hemoglobin Concent 31.6L, Red Cell Distribution Width 15.8H, Platelet Count 308, Mean Platelet Volume 7.7, Neutrophils (%) (Auto) 61.8, Lymphocytes (%) (Auto) 25.2, Monocytes (%) (Auto) 6.7, Eosinophils (%) (Auto) 5.2H, Basophils (%) (Auto) 1.1, Sodium Level 143, Potassium Level 5.2H, Chloride Level 106, Carbon Dioxide Level 23, Anion Gap 14, Blood Urea Nitrogen 37H, Creatinine 1.2, Estimat Glomerular Filtration Rate 59.9, Glucose Level 85, Calcium Level 10.6H Current Medications Medications (Trade) Dose Ordered Sig/Wanda Route PRN Reason Start Time Stop Time Status Last Admin Dose Admin Acetaminophen (Tylenol) 650 mg Q4H PRN ORAL FEVER 02/15/19 11:00 03/17/19 10:59 02/20/19 17:40 Dextrose (Dextrose 50%) 25 ml Q30M PRN IV Hypoglycemia 02/15/19 11:00 03/17/19 10:59 Dextrose (Dextrose 50%) 50 ml Q30M PRN IV Hypoglycemia 02/15/19 12:45 03/17/19 12:44 Heparin Sodium (Porcine) (Heparin 5000 units/ml) 5,000 units EVERY 12 HOURS SUBQ 02/15/19 21:00 03/17/19 20:59 02/22/19 08:27 Levothyroxine Sodium (Synthroid) 75 mcg DAILY GT 02/16/19 09:00 03/18/19 08:59 02/22/19 08:26 Lorazepam (Ativan 2mg/ml 1ml) 2 mg Q2H PRN IV For Anxiety 02/15/19 11:00 02/22/19 10:59 Meropenem 1 gm/ Sodium Chloride 110 ml @ 220 mls/hr Q12HR IVPB 02/16/19 15:00 02/23/19 14:59 02/22/19 08:31 Morphine Sulfate (Morphine Sulfate) 4 mg Q4H PRN IVP Severe Pain (Pain Scale 7-10) 02/15/19 11:00 02/22/19 10:59 Ondansetron HCl (Zofran) 4 mg Q6H PRN IVP Nausea & Vomiting 02/15/19 11:00 03/17/19 10:59 Polyethylene Glycol (Miralax) 17 gm DAILYPRN PRN ORAL Constipation 02/15/19 11:00 03/17/19 10:59 Sucralfate (Carafate) 1 gm FOUR TIMES A DAY GT 02/15/19 13:00 03/17/19 12:59 02/22/19 08:26 Amina Garcia NP Feb 22, 2019 09:01
--- NOTE | 2019-02-22 09:43 | General Progress Note ---
Assessment/Plan Problem List: (1) UTI (urinary tract infection) ICD Codes: N39.0 - Urinary tract infection, site not specified SNOMED: 61031976 (2) Nephrostomy complication ICD Codes: N99.528 - Other complication of incontinent external stoma of urinary tract SNOMED: 14234078 (3) Severe protein-calorie malnutrition ICD Codes: E43 - Unspecified severe protein-calorie malnutrition SNOMED: 967720159 (4) Feeding by G-tube ICD Codes: Z93.1 - Gastrostomy status SNOMED: 925989077, 982633596 (5) Respiratory failure, nzftr-jq-ufbyljp ICD Codes: J96.20 - Respiratory failure, dkcmq-qn-bveeosw SNOMED: 45664256 (6) Anemia ICD Codes: D64.9 - Anemia, unspecified SNOMED: 003745156 (7) Hypothyroidism ICD Codes: E03.9 - Hypothyroidism, unspecified SNOMED: 20929088 (8) Alzheimer's dementia ICD Codes: G30.9 - Alzheimer's disease, unspecified SNOMED: 69239441 Status: unchanged Assessment/Plan: vent abx diert eval neph f/u cbc bmp am ltach eval Subjective Constitutional: Reports: weakness Allergies: Coded Allergies: NO KNOWN DRUG ALLERGIES (Verified Allergy, Unknown, 09/11/16) All Systems: reviewed and negative except above Subjective trach vent altered Objective Last 24 Hour Vital Signs Date Time Temp Pulse Resp B/P (MAP) Pulse Ox O2 Delivery O2 Flow Rate FiO2 02/22/19 08:59 72 18 40 02/22/19 08:00 98.2 79 18 127/76 (93) 100 02/22/19 08:00 Mechanical Ventilator 02/22/19 08:00 40 02/22/19 08:00 85 02/22/19 07:29 74 18 40 02/22/19 04:54 84 19 40 02/22/19 04:01 85 02/22/19 04:00 98.2 85 19 115/68 (84) 100 02/22/19 04:00 40 02/22/19 04:00 Mechanical Ventilator 02/22/19 03:07 82 21 40 02/22/19 01:11 81 20 40 02/22/19 00:00 Mechanical Ventilator 02/22/19 00:00 97.9 89 22 127/81 (96) 100 02/21/19 23:42 84 02/21/19 23:05 87 23 40 02/21/19 21:26 74 18 40 02/21/19 20:00 Mechanical Ventilator 02/21/19 20:00 40 02/21/19 20:00 97.9 76 18 117/66 (83) 100 02/21/19 19:43 77 02/21/19 18:44 77 19 40 02/21/19 17:30 76 19 40 02/21/19 16:00 98.2 84 18 126/70 (88) 100 02/21/19 16:00 40 02/21/19 16:00 Mechanical Ventilator 02/21/19 16:00 82 02/21/19 15:41 77 18 40 02/21/19 13:11 80 18 40 02/21/19 12:00 40 02/21/19 12:00 98.8 86 18 107/72 (84) 100 02/21/19 12:00 Mechanical Ventilator 02/21/19 12:00 74 02/21/19 11:08 79 18 40 Intake and Output 02/21/19 02/22/19 19:00 07:00 Intake Total 920 ml 865 ml Output Total 325 ml 800 ml Balance 595 ml 65 ml Intake Free Water 150 ml 150 ml IV Total 110 ml 110 ml Tube Feeding 660 ml 605 ml Output Urine Total 325 ml 800 ml Laboratory Tests 02/22/19 04:40: White Blood Count 9.0, Red Blood Count 4.26L, Hemoglobin 11.7L, Hematocrit 36.9L , Mean Corpuscular Volume 87, Mean Corpuscular Hemoglobin 27.4, Mean Corpuscular Hemoglobin Concent 31.6L, Red Cell Distribution Width 15.8H, Platelet Count 308, Mean Platelet Volume 7.7, Neutrophils (%) (Auto) 61.8, Lymphocytes (%) (Auto) 25.2, Monocytes (%) (Auto) 6.7, Eosinophils (%) (Auto) 5.2H, Basophils (%) (Auto) 1.1, Sodium Level 143, Potassium Level 5.2H, Chloride Level 106, Carbon Dioxide Level 23, Anion Gap 14, Blood Urea Nitrogen 37H, Creatinine 1.2, Estimat Glomerular Filtration Rate 59.9, Glucose Level 85, Calcium Level 10.6H 02/22/19 09:09: Arterial Blood pH 7.456H, Arterial Blood Partial Pressure CO2 30.8L, Arterial Blood Partial Pressure O2 86.7, Arterial Blood HCO3 21.2L, Arterial Blood Oxygen Saturation 96.7, Arterial Blood Base Excess -1.9, Ger Test Positive Height (Feet): 5 Height (Inches): 4.00 Weight (Pounds): 147 General Appearance: lethargic EENT: normal ENT inspection Neck: normal alignment Cardiovascular: normal peripheral pulses, normal rate, regular rhythm Respiratory/Chest: chest wall non-tender, lungs clear, normal breath sounds Abdomen: normal bowel sounds, non tender, soft Extremities: normal inspection Edema: no edema noted Arm (L), no edema noted Arm (R), no edema noted Leg (L), no edema noted Leg (R), no edema noted Pedal (L), no edema noted Pedal (R), no edema noted Generalized Neurologic: motor weakness Skin: normal pigmentation, warm/dry Gato Viveros DO Feb 22, 2019 09:43
[2019-02-22] MEDS ORDERED: Sodium Polystyrene Sulfonate 15gm Powder ORAL ONE (10:30)
--- NOTE | 2019-02-22 11:29 | Nephrology Progress Note ---
Assessment/Plan Problem List: (1) Acute renal failure (2) Nephrostomy complication (3) UTI (urinary tract infection) (4) Hypothyroidism Assessment Azotemia /renal failure UTI Severe protein-calorie malnutrition Hypothyroidism Low Na Tracheostomy dependence Respiratory failure, xcaqu-bb-rroyfgo h/o GI bleed Alzheimer's Feeding by G-tube Plan Gastric support Antibiotics Electrolyte adjustment and supplement as needed pulm support monitor renal parameters Avoid Nephrotoxics check H&H per orders Subjective ROS Limited/Unobtainable: Yes Objective Objective Last 24 Hour Vital Signs Date Time Temp Pulse Resp B/P (MAP) Pulse Ox O2 Delivery O2 Flow Rate FiO2 02/22/19 08:59 72 18 40 02/22/19 08:00 98.2 79 18 127/76 (93) 100 02/22/19 08:00 Mechanical Ventilator 02/22/19 08:00 40 02/22/19 08:00 85 02/22/19 07:29 74 18 40 02/22/19 04:54 84 19 40 02/22/19 04:01 85 02/22/19 04:00 98.2 85 19 115/68 (84) 100 02/22/19 04:00 40 02/22/19 04:00 Mechanical Ventilator 02/22/19 03:07 82 21 40 02/22/19 01:11 81 20 40 02/22/19 00:00 Mechanical Ventilator 02/22/19 00:00 97.9 89 22 127/81 (96) 100 02/21/19 23:42 84 02/21/19 23:05 87 23 40 02/21/19 21:26 74 18 40 02/21/19 20:00 Mechanical Ventilator 02/21/19 20:00 40 02/21/19 20:00 97.9 76 18 117/66 (83) 100 02/21/19 19:43 77 02/21/19 18:44 77 19 40 02/21/19 17:30 76 19 40 02/21/19 16:00 98.2 84 18 126/70 (88) 100 02/21/19 16:00 40 02/21/19 16:00 Mechanical Ventilator 02/21/19 16:00 82 02/21/19 15:41 77 18 40 02/21/19 13:11 80 18 40 02/21/19 12:00 40 02/21/19 12:00 98.8 86 18 107/72 (84) 100 02/21/19 12:00 Mechanical Ventilator 02/21/19 12:00 74 Intake and Output 02/21/19 02/22/19 19:00 07:00 Intake Total 920 ml 865 ml Output Total 325 ml 800 ml Balance 595 ml 65 ml Intake Free Water 150 ml 150 ml IV Total 110 ml 110 ml Tube Feeding 660 ml 605 ml Output Urine Total 325 ml 800 ml Laboratory Tests 02/22/19 04:40: White Blood Count 9.0, Red Blood Count 4.26L, Hemoglobin 11.7L, Hematocrit 36.9L , Mean Corpuscular Volume 87, Mean Corpuscular Hemoglobin 27.4, Mean Corpuscular Hemoglobin Concent 31.6L, Red Cell Distribution Width 15.8H, Platelet Count 308, Mean Platelet Volume 7.7, Neutrophils (%) (Auto) 61.8, Lymphocytes (%) (Auto) 25.2, Monocytes (%) (Auto) 6.7, Eosinophils (%) (Auto) 5.2H, Basophils (%) (Auto) 1.1, Sodium Level 143, Potassium Level 5.2H, Chloride Level 106, Carbon Dioxide Level 23, Anion Gap 14, Blood Urea Nitrogen 37H, Creatinine 1.2, Estimat Glomerular Filtration Rate 59.9, Glucose Level 85, Calcium Level 10.6H 02/22/19 09:09: Arterial Blood pH 7.456H, Arterial Blood Partial Pressure CO2 30.8L, Arterial Blood Partial Pressure O2 86.7, Arterial Blood HCO3 21.2L, Arterial Blood Oxygen Saturation 96.7, Arterial Blood Base Excess -1.9, Ger Test Positive Height (Feet): 5 Height (Inches): 4.00 Weight (Pounds): 147 General Appearance: no apparent distress EENT: other - trach Cardiovascular: normal rate Respiratory/Chest: decreased breath sounds Abdomen: distended Objective no change Sav Salvador MD Feb 22, 2019 11:29
[2019-02-22 12:00] VITALS: BP 144/73
--- NOTE | 2019-02-22 13:19 | Infectious Diseases Prog Note ---
Assessment/Plan Assessment/Plan Assessment/Plan 68 y/o male with multiple admissions and medical probelems who was admitted on for left nephrostomy tube change. Leukocytosis Likely sepsis from UTI left nephrostomy tube placed 12/31/18 Urine Cx 02/15/19 - Proteus - Sen to Sherly and amik Hx of Infected obstructive ureteral stone w/ adjacent abscess Reba abscess was anterior to the proximal ureter adjacent a stone not seen on the current CT scan. He is s/p 1 month Ertapenem for this. R foot lateral ulcer- not infected Hx Constipation Chronic respiratory failure trach/vent dependant Hypothyroidism GERD Hypertension Hx C. diff Dysphagia s/p G-tube Anemia. CVA/TIA w/ hemiplegia functional quadriplegia chronic encephalopathy CAD CHF Dm2 GIB s/p multiple EGDs in the past hx of severe esophagitis schizoaffective disease prison resident multiple admissions VRE colonization Plan: - DC meropenem # 7 and vancomcyin # 7 - 02/19/19 SP vancomcyin #4 - Monitor CBC and Temps - S/p Melita.Erta x 1 month - 12/23/18 SP Zosyn #11, inhaled colistin #8 for MDR P.a.for sputum organism and Fluconazole #7 for Yeast it the urine - 12/12 S/P Vancomycin and Cefepime #5 -12/08 SP Levaquin x1 -11/06 SP Amikacin #6 -11/01 SP Meropenem #4 -10/29 SP IV Vanco #2, Cefepime #2 and Tigecycline #1 -10/28 SP LEavquin x1 -10/09 SP Ertapenem #5 - 10/04 SP Meropenem #2 -10/03/18 SP IV Vancomycin #2 and Cefepime #2 -08/09/18 SP Bactrim #7 -08/03 SP Vancomycin and Cefepime #3 -08/01/18 SP Ceftriaxone x1 -Peg/trach care -aspiration precautions Subjective Allergies: Coded Allergies: NO KNOWN DRUG ALLERGIES (Verified Allergy, Unknown, 09/11/16) Subjective comfortable Objective Vital Signs Last 24 Hour Vital Signs Date Time Temp Pulse Resp B/P (MAP) Pulse Ox O2 Delivery O2 Flow Rate FiO2 02/22/19 12:00 40 02/22/19 12:00 Mechanical Ventilator 02/22/19 12:00 83 02/22/19 12:00 97.9 82 20 144/73 (96) 100 02/22/19 11:10 70 18 40 02/22/19 08:59 72 18 40 02/22/19 08:00 98.2 79 18 127/76 (93) 100 02/22/19 08:00 Mechanical Ventilator 02/22/19 08:00 40 02/22/19 08:00 85 02/22/19 07:29 74 18 40 02/22/19 04:54 84 19 40 02/22/19 04:01 85 02/22/19 04:00 98.2 85 19 115/68 (84) 100 02/22/19 04:00 40 02/22/19 04:00 Mechanical Ventilator 02/22/19 03:07 82 21 40 02/22/19 01:11 81 20 40 02/22/19 00:00 Mechanical Ventilator 02/22/19 00:00 97.9 89 22 127/81 (96) 100 02/21/19 23:42 84 02/21/19 23:05 87 23 40 02/21/19 21:26 74 18 40 02/21/19 20:00 Mechanical Ventilator 02/21/19 20:00 40 02/21/19 20:00 97.9 76 18 117/66 (83) 100 02/21/19 19:43 77 02/21/19 18:44 77 19 40 02/21/19 17:30 76 19 40 02/21/19 16:00 98.2 84 18 126/70 (88) 100 02/21/19 16:00 40 02/21/19 16:00 Mechanical Ventilator 02/21/19 16:00 82 02/21/19 15:41 77 18 40 Height (Feet): 5 Height (Inches): 4.00 Weight (Pounds): 147 HEENT: anicteric Respiratory/Chest: normal breath sounds Cardiovascular: normal rate Abdomen: non distended Laboratory Tests Test 02/22/19 04:40 02/22/19 09:09 White Blood Count 9.0 K/UL (4.8-10.8) Red Blood Count 4.26 M/UL (4.70-6.10) L Hemoglobin 11.7 G/DL (14.2-18.0) L Hematocrit 36.9 % (42.0-52.0) L Mean Corpuscular Volume 87 FL (80-99) Mean Corpuscular Hemoglobin 27.4 PG (27.0-31.0) Mean Corpuscular Hemoglobin Concent 31.6 G/DL (32.0-36.0) L Red Cell Distribution Width 15.8 % (11.6-14.8) H Platelet Count 308 K/UL (150-450) Mean Platelet Volume 7.7 FL (6.5-10.1) Neutrophils (%) (Auto) 61.8 % (45.0-75.0) Lymphocytes (%) (Auto) 25.2 % (20.0-45.0) Monocytes (%) (Auto) 6.7 % (1.0-10.0) Eosinophils (%) (Auto) 5.2 % (0.0-3.0) H Basophils (%) (Auto) 1.1 % (0.0-2.0) Sodium Level 143 MMOL/L (136-145) Potassium Level 5.2 MMOL/L (3.5-5.1) H Chloride Level 106 MMOL/L (98-107) Carbon Dioxide Level 23 MMOL/L (21-32) Anion Gap 14 mmol/L (5-15) Blood Urea Nitrogen 37 mg/dL (7-18) H Creatinine 1.2 MG/DL (0.55-1.30) Estimat Glomerular Filtration Rate 59.9 mL/min (>60) Glucose Level 85 MG/DL (74-106) Calcium Level 10.6 MG/DL (8.5-10.1) H Arterial Blood pH 7.456 (7.350-7.450) Arterial Blood Partial Pressure CO2 30.8 mmHg (35.0-45.0) L Arterial Blood Partial Pressure O2 86.7 mmHg (75.0-100.0) Arterial Blood HCO3 21.2 mmol/L (22.0-26.0) L Arterial Blood Oxygen Saturation 96.7 % (95-100) Arterial Blood Base Excess -1.9 (-2-2) Ger Test Positive Current Medications Medications (Trade) Dose Ordered Sig/Wanda Route PRN Reason Start Time Stop Time Status Last Admin Dose Admin Acetaminophen (Tylenol) 650 mg Q4H PRN ORAL FEVER 02/15/19 11:00 03/17/19 10:59 02/20/19 17:40 Dextrose (Dextrose 50%) 25 ml Q30M PRN IV Hypoglycemia 02/15/19 11:00 03/17/19 10:59 Dextrose (Dextrose 50%) 50 ml Q30M PRN IV Hypoglycemia 02/15/19 12:45 03/17/19 12:44 Heparin Sodium (Porcine) (Heparin 5000 units/ml) 5,000 units EVERY 12 HOURS SUBQ 02/15/19 21:00 03/17/19 20:59 02/22/19 08:27 Levothyroxine Sodium (Synthroid) 75 mcg DAILY GT 02/16/19 09:00 03/18/19 08:59 02/22/19 08:26 Meropenem 1 gm/ Sodium Chloride 110 ml @ 220 mls/hr Q12HR IVPB 02/16/19 15:00 02/23/19 14:59 02/22/19 08:31 Ondansetron HCl (Zofran) 4 mg Q6H PRN IVP Nausea & Vomiting 02/15/19 11:00 03/17/19 10:59 Polyethylene Glycol (Miralax) 17 gm DAILYPRN PRN ORAL Constipation 02/15/19 11:00 03/17/19 10:59 Sucralfate (Carafate) 1 gm FOUR TIMES A DAY GT 02/15/19 13:00 03/17/19 12:59 02/22/19 08:26 Cesario Daniels MD Feb 22, 2019 13:19
--- NOTE | 2019-02-22 13:22 | Diagnostic Imaging Report ---
EXAM: XR Chest, 1 View CLINICAL HISTORY: SOB TECHNIQUE: Frontal view of the chest. COMPARISON: 10/28/18. FINDINGS: Lungs: Unremarkable. No consolidation. Pleural space: Unremarkable. No pneumothorax. Heart: Unremarkable. No cardiomegaly. Mediastinum: Redemonstrated tracheostomy, appropriately position. Calcified aorta. Bones/joints: Unremarkable. IMPRESSION: No evidence of acute pulmonary disease. Tracheostomy..
[2019-02-22 16:00] VITALS: BP 124/74
[2019-02-22 20:00] VITALS: BP 122/78
[2019-02-23] VITALS: BP 127/51
[2019-02-23 04:00] VITALS: BP 105/60
[2019-02-23 08:00] VITALS: BP 127/68
[2019-02-23 08:35] LABS: BASOPHILS % (AUTO) 0.7 % (0.0-2.0); EOSINOPHILS % (AUTO) 6.7 % (0.0-3.0); HEMATOCRIT 31.2 % (42.0-52.0); HEMOGLOBIN 9.9 G/DL (14.2-18.0); LYMPHOCYTES % (AUTO) 22.9 % (20.0-45.0); MEAN CORPUSCULAR VOLUME 87 FL (80-99); MONOCYTES % (AUTO) 8.8 % (1.0-10.0); NEUTROPHILS % (AUTO) 60.8 % (45.0-75.0); PLATELET COUNT 303 K/UL (150-450); RED BLOOD COUNT 3.58 M/UL (4.70-6.10); RED CELL DISTRIBUTION WIDTH 15.8 % (11.6-14.8); WHITE BLOOD COUNT 7.4 K/UL (4.8-10.8)
[2019-02-23] MEDS: Sucralfate 1gm tab GT SCH ×4 (08:49→22:46)
[2019-02-23] MEDS: Heparin 5000 units/ml inj SUBQ SCH ×2 (08:51→22:47)
[2019-02-23 09:19] LABS: ALANINE AMINOTRANSFERASE 52 U/L (12-78); ALBUMIN/GLOBULIN RATIO 0.6 (1.0-2.7); ALKALINE PHOSPHATASE 162 U/L (46-116); ANION GAP 7 mmol/L (5-15); ASPARTATE AMINO TRANSFERASE 40 U/L (15-37); BILIRUBIN,TOTAL 0.2 MG/DL (0.2-1.0); BLOOD UREA NITROGEN 35 mg/dL (7-18); CALCIUM 9.8 MG/DL (8.5-10.1); CARBON DIOXIDE 27 MMOL/L (21-32); CHLORIDE 108 MMOL/L (98-107); PHOSPHORUS 2.6 MG/DL (2.5-4.9); POTASSIUM 4.6 MMOL/L (3.5-5.1); SODIUM 141 MMOL/L (136-145)
--- NOTE | 2019-02-23 09:39 | Pulmonology Progress Note ---
Assessment/Plan Assessment/Plan ASSESSMENT sepsis secondary to UTI Proteus ESBL UTI s/p nephrostomy placement in IV 2019 History of infected obstructive ureteral stone with adjacent abscess Acute on chronic respiratory failure with ventilator dependency Tracheostomy status Acute renal failure Nephrostomy complication Chronic hydronephrosis on the left Left renal atrophy Hypothyroidism with elevated TSH History of C. difficile Dysphagia , status post G-tube Anemia History of CVA and hemiplegia Functional quadriplegia Chronic encephalopathy Diabetes mellitus type 2 Coronary artery disease CHF History of GI bleeding , status post multiply EGD Erosive esophagitis Severe protein calorie malnutrition PLAN OF CARE LUIS status vent support, trach care, ABG stable this am on AC 16, keep settings as is and titrate as needed pulmonary toilet fup with CXR in am prior CXR 02/22 no acute pulm disease abx as per ID recommendation repeated urine culture 02/18 no evidence of growth sputum cx likely colonized urology evaluation appreciated patient not a surgical candidate; per urology recommendation keep nephrostomy tube and change every 3 to 4 months acute renal failure resolved with hydration creatinine down to normal avoid nephrotoxic monitor renal parameters and electrolytes, replace electrolyte as needed, K stable this am after hyper K treatment 02/22 orthopedic designer on the board renal ultrasound-no hydronephrosis, mass versus prostate hypertrophy involving the posterior base of the urinary bladder nephrostomy tube was dislodged, interventional radiology was unable to reestablish access recommended when the collecting system re-dilates, then a new nephrostomy tube can be placed CT abdomen pelvis noted: persistent 1.8 cm stone in the proximal mid left ureter percutaneous left nephrostomy tube noted bronchial wall thickening concerning for bronchitis, reticulonodular density in the lower lungs and mild patchy densities concerning for infectious/ inflammatory process status post Rx venous duplex bilateral lower extremity revealed chronic thrombus left lower extremity, superficial femoral vein DVT prophylaxis monitor H&H with goal to keep hemoglobin above 7 anemia work-up noted aspiration precaution, G-tube feeding dietary recs implemented in POC TSH elevated, increase levothyroxine to 88 mcg pain management bowel regimen supportive care LTAC eval pending case discussed and evaluated by supervising physician Subjective Allergies: Coded Allergies: NO KNOWN DRUG ALLERGIES (Verified Allergy, Unknown, 09/11/16) Subjective afebrile, no leukocytosis no signs of resp distress ABG this am with AC rate 16 stable elevated TSH Objective Last 24 Hour Vital Signs Date Time Temp Pulse Resp B/P (MAP) Pulse Ox O2 Delivery O2 Flow Rate FiO2 02/23/19 09:31 75 16 40 02/23/19 08:00 Mechanical Ventilator 02/23/19 08:00 98.5 76 16 127/68 (87) 100 02/23/19 08:00 40 02/23/19 06:48 78 18 40 02/23/19 05:11 74 16 40 02/23/19 04:00 Mechanical Ventilator 02/23/19 04:00 98.2 72 20 105/60 (75) 100 02/23/19 04:00 40 02/23/19 03:52 78 02/23/19 03:15 84 21 40 02/23/19 01:30 83 19 40 02/23/19 00:00 98.1 82 18 127/51 (76) 100 02/23/19 00:00 Mechanical Ventilator 02/22/19 23:42 95 02/22/19 23:24 81 18 40 02/22/19 21:10 81 18 40 02/22/19 20:00 40 02/22/19 20:00 Mechanical Ventilator 02/22/19 20:00 98.0 80 18 122/78 (93) 100 02/22/19 19:35 74 02/22/19 19:20 74 19 40 02/22/19 17:05 78 18 40 02/22/19 16:00 98.1 82 18 124/74 (91) 100 02/22/19 16:00 Mechanical Ventilator 02/22/19 16:00 40 02/22/19 15:23 82 02/22/19 15:02 79 18 40 02/22/19 13:01 75 18 40 02/22/19 12:00 40 02/22/19 12:00 Mechanical Ventilator 02/22/19 12:00 83 02/22/19 12:00 97.9 82 20 144/73 (96) 100 02/22/19 11:10 70 18 40 Intake and Output 02/22/19 02/23/19 19:00 07:00 Intake Total 1420 ml 735 ml Output Total 400 ml 550 ml Balance 1020 ml 185 ml Intake Free Water 150 ml 130 ml IV Total 610 ml Tube Feeding 660 ml 605 ml Output Urine Total 400 ml 550 ml # Bowel Movements 1 2 Objective General Appearance: no acute distress, cachetic, bedridden , on vent AV 60-16 -40% HEENT: normocephalic, atraumatic, anicteric, status post trach - Shiley#8, secretions moderate, white, thick Respiratory/Chest: few scattered rhonchi Cardiovascular: normal rate, regular rhythm Abdomen: normal bowel sounds, soft, non tender, G tube Extremities: no edema, pedal pulses normal Neurologic/Psychiatric: bedridden, contracted , not responsive to verbal stimuli Musculoskeletal: atrophy - BLE Laboratory Tests 02/23/19 04:00: Arterial Blood pH 7.448, Arterial Blood Partial Pressure CO2 34.2L, Arterial Blood Partial Pressure O2 186.3H, Arterial Blood HCO3 23.1, Arterial Blood Oxygen Saturation 98.8, Arterial Blood Base Excess -0.5, Ger Test Positive 02/23/19 08:10: White Blood Count 7.4, Red Blood Count 3.58L, Hemoglobin 9.9L, Hematocrit 31.2L , Mean Corpuscular Volume 87, Mean Corpuscular Hemoglobin 27.7, Mean Corpuscular Hemoglobin Concent 31.8L, Red Cell Distribution Width 15.8H, Platelet Count 303, Mean Platelet Volume 7.6, Neutrophils (%) (Auto) 60.8, Lymphocytes (%) (Auto) 22.9, Monocytes (%) (Auto) 8.8, Eosinophils (%) (Auto) 6.7H, Basophils (%) (Auto) 0.7, Sodium Level 141, Potassium Level 4.6, Chloride Level 108H, Carbon Dioxide Level 27, Anion Gap 7, Blood Urea Nitrogen 35H, Creatinine 1.0, Estimat Glomerular Filtration Rate > 60, Glucose Level 129H, Uric Acid 3.8, Calcium Level 9.8, Phosphorus Level 2.6, Magnesium Level 2.1, Total Bilirubin 0.2, Aspartate Amino Transf (AST/SGOT) 40H, Alanine Aminotransferase (ALT/SGPT) 52, Alkaline Phosphatase 162H, C-Reactive Protein, Quantitative 2.6H, Pro-B-Type Natriuretic Peptide 382H, Total Protein 8.2, Albumin 3.0L, Globulin 5.2, Albumin/Globulin Ratio 0.6L, Thyroid Stimulating Hormone (TSH) 6.013H Current Medications Medications (Trade) Dose Ordered Sig/Wanda Route PRN Reason Start Time Stop Time Status Last Admin Dose Admin Acetaminophen (Tylenol) 650 mg Q4H PRN ORAL FEVER 02/15/19 11:00 03/17/19 10:59 02/20/19 17:40 Dextrose (Dextrose 50%) 25 ml Q30M PRN IV Hypoglycemia 02/15/19 11:00 03/17/19 10:59 Dextrose (Dextrose 50%) 50 ml Q30M PRN IV Hypoglycemia 02/15/19 12:45 03/17/19 12:44 Heparin Sodium (Porcine) (Heparin 5000 units/ml) 5,000 units EVERY 12 HOURS SUBQ 02/15/19 21:00 03/17/19 20:59 02/23/19 08:51 Levothyroxine Sodium (Synthroid) 75 mcg DAILY GT 02/16/19 09:00 03/18/19 08:59 02/23/19 08:50 Ondansetron HCl (Zofran) 4 mg Q6H PRN IVP Nausea & Vomiting 02/15/19 11:00 03/17/19 10:59 Polyethylene Glycol (Miralax) 17 gm DAILYPRN PRN ORAL Constipation 02/15/19 11:00 03/17/19 10:59 Sucralfate (Carafate) 1 gm FOUR TIMES A DAY GT 02/15/19 13:00 03/17/19 12:59 02/23/19 08:49 Amina Garcia NP Feb 23, 2019 09:39
[2019-02-23] MEDS ORDERED: Miralax 17gm pkt GT PRN (09:45)
[2019-02-23] MEDS ORDERED: Acetaminophen 650mg/20.3ml GT PRN (09:45)
[2019-02-23] MEDS ORDERED: Albuterol/Ipratropium 3ml neb HHN PRN (09:45)
[2019-02-23] MEDS ORDERED: Tubing IV Secondary IV ONE (09:49)
[2019-02-23] MEDS ORDERED: NS 500ML ONE (09:49)
[2019-02-23] MEDS ORDERED: NS 275ml ONE ×2 (09:49→15:54)
--- NOTE | 2019-02-23 10:24 | General Progress Note ---
Assessment/Plan Problem List: (1) UTI (urinary tract infection) ICD Codes: N39.0 - Urinary tract infection, site not specified SNOMED: 57143051 (2) Nephrostomy complication ICD Codes: N99.528 - Other complication of incontinent external stoma of urinary tract SNOMED: 43019623 (3) Severe protein-calorie malnutrition ICD Codes: E43 - Unspecified severe protein-calorie malnutrition SNOMED: 204320161 (4) Feeding by G-tube ICD Codes: Z93.1 - Gastrostomy status SNOMED: 085432977, 795876980 (5) Respiratory failure, [id number]-[id number] ICD Codes: J96.20 - Respiratory failure, wwbtg-wo-aafzavs SNOMED: 03717708 (6) Anemia ICD Codes: D64.9 - Anemia, unspecified SNOMED: 499846558 (7) Hypothyroidism ICD Codes: E03.9 - Hypothyroidism, unspecified SNOMED: 88925248 (8) Alzheimer's dementia ICD Codes: G30.9 - Alzheimer's disease, unspecified SNOMED: 26018293 Status: unchanged Assessment/Plan: vent abx diert eval neph f/u cbc bmp am ltach eval Subjective Constitutional: Reports: weakness Allergies: Coded Allergies: NO KNOWN DRUG ALLERGIES (Verified Allergy, Unknown, 09/11/16) All Systems: reviewed and negative except above Subjective trach vent altered Objective Last 24 Hour Vital Signs Date Time Temp Pulse Resp B/P (MAP) Pulse Ox O2 Delivery O2 Flow Rate FiO2 02/23/19 09:31 75 16 40 02/23/19 08:00 Mechanical Ventilator 02/23/19 08:00 98.5 76 16 127/68 (87) 100 02/23/19 08:00 40 02/23/19 07:57 78 02/23/19 06:48 78 18 40 02/23/19 05:11 74 16 40 02/23/19 04:00 Mechanical Ventilator 02/23/19 04:00 98.2 72 20 105/60 (75) 100 02/23/19 04:00 40 02/23/19 03:52 78 02/23/19 03:15 84 21 40 02/23/19 01:30 83 19 40 02/23/19 00:00 98.1 82 18 127/51 (76) 100 02/23/19 00:00 Mechanical Ventilator 02/22/19 23:42 95 02/22/19 23:24 81 18 40 02/22/19 21:10 81 18 40 02/22/19 20:00 40 02/22/19 20:00 Mechanical Ventilator 02/22/19 20:00 98.0 80 18 122/78 (93) 100 02/22/19 19:35 74 02/22/19 19:20 74 19 40 02/22/19 17:05 78 18 40 02/22/19 16:00 98.1 82 18 124/74 (91) 100 02/22/19 16:00 Mechanical Ventilator 02/22/19 16:00 40 02/22/19 15:23 82 02/22/19 15:02 79 18 40 02/22/19 13:01 75 18 40 02/22/19 12:00 40 02/22/19 12:00 Mechanical Ventilator 02/22/19 12:00 83 02/22/19 12:00 97.9 82 20 144/73 (96) 100 02/22/19 11:10 70 18 40 Intake and Output 02/22/19 02/23/19 19:00 07:00 Intake Total 1420 ml 735 ml Output Total 400 ml 550 ml Balance 1020 ml 185 ml Intake Free Water 150 ml 130 ml IV Total 610 ml Tube Feeding 660 ml 605 ml Output Urine Total 400 ml 550 ml # Bowel Movements 1 2 Laboratory Tests 02/23/19 04:00: Arterial Blood pH 7.448, Arterial Blood Partial Pressure CO2 34.2L, Arterial Blood Partial Pressure O2 186.3H, Arterial Blood HCO3 23.1, Arterial Blood Oxygen Saturation 98.8, Arterial Blood Base Excess -0.5, Ger Test Positive 02/23/19 08:10: White Blood Count 7.4, Red Blood Count 3.58L, Hemoglobin 9.9L, Hematocrit 31.2L , Mean Corpuscular Volume 87, Mean Corpuscular Hemoglobin 27.7, Mean Corpuscular Hemoglobin Concent 31.8L, Red Cell Distribution Width 15.8H, Platelet Count 303, Mean Platelet Volume 7.6, Neutrophils (%) (Auto) 60.8, Lymphocytes (%) (Auto) 22.9, Monocytes (%) (Auto) 8.8, Eosinophils (%) (Auto) 6.7H, Basophils (%) (Auto) 0.7, Sodium Level 141, Potassium Level 4.6, Chloride Level 108H, Carbon Dioxide Level 27, Anion Gap 7, Blood Urea Nitrogen 35H, Creatinine 1.0, Estimat Glomerular Filtration Rate > 60, Glucose Level 129H, Uric Acid 3.8, Calcium Level 9.8, Phosphorus Level 2.6, Magnesium Level 2.1, Total Bilirubin 0.2, Aspartate Amino Transf (AST/SGOT) 40H, Alanine Aminotransferase (ALT/SGPT) 52, Alkaline Phosphatase 162H, C-Reactive Protein, Quantitative 2.6H, Pro-B-Type Natriuretic Peptide 382H, Total Protein 8.2, Albumin 3.0L, Globulin 5.2, Albumin/Globulin Ratio 0.6L, Thyroid Stimulating Hormone (TSH) 6.013H Height (Feet): 5 Height (Inches): 4.00 Weight (Pounds): 147 General Appearance: lethargic EENT: normal ENT inspection Neck: normal alignment Cardiovascular: normal peripheral pulses, normal rate, regular rhythm Respiratory/Chest: chest wall non-tender, lungs clear, normal breath sounds Abdomen: normal bowel sounds, non tender, soft Extremities: normal inspection Edema: no edema noted Arm (L), no edema noted Arm (R), no edema noted Leg (L), no edema noted Leg (R), no edema noted Pedal (L), no edema noted Pedal (R), no edema noted Generalized Neurologic: motor weakness Skin: normal pigmentation, warm/dry Gato Viveros DO Feb 23, 2019 10:24
[2019-02-23 12:00] VITALS: BP 148/98
--- NOTE | 2019-02-23 13:42 | Nephrology Progress Note ---
Assessment/Plan Problem List: (1) Acute renal failure (2) Nephrostomy complication (3) UTI (urinary tract infection) (4) Hypothyroidism Assessment Azotemia /renal failure UTI Severe protein-calorie malnutrition Hypothyroidism Low Na Tracheostomy dependence Respiratory failure, lkfyl-xz-amjtfzw h/o GI bleed Alzheimer's Feeding by G-tube Plan Gastric support Antibiotics Electrolyte adjustment and supplement as needed pulm support monitor renal parameters Avoid Nephrotoxics check H&H per orders Subjective ROS Limited/Unobtainable: Yes Objective Objective Last 24 Hour Vital Signs Date Time Temp Pulse Resp B/P (MAP) Pulse Ox O2 Delivery O2 Flow Rate FiO2 02/23/19 12:00 98.1 72 16 148/98 (115) 100 02/23/19 12:00 40 02/23/19 12:00 Mechanical Ventilator 02/23/19 11:39 73 02/23/19 11:19 74 16 40 02/23/19 09:31 75 16 40 02/23/19 08:00 Mechanical Ventilator 02/23/19 08:00 98.5 76 16 127/68 (87) 100 02/23/19 08:00 40 02/23/19 07:57 78 02/23/19 06:48 78 18 40 02/23/19 05:11 74 16 40 02/23/19 04:00 Mechanical Ventilator 02/23/19 04:00 98.2 72 20 105/60 (75) 100 02/23/19 04:00 40 02/23/19 03:52 78 02/23/19 03:15 84 21 40 02/23/19 01:30 83 19 40 02/23/19 00:00 98.1 82 18 127/51 (76) 100 02/23/19 00:00 Mechanical Ventilator 02/22/19 23:42 95 02/22/19 23:24 81 18 40 02/22/19 21:10 81 18 40 02/22/19 20:00 40 02/22/19 20:00 Mechanical Ventilator 02/22/19 20:00 98.0 80 18 122/78 (93) 100 02/22/19 19:35 74 02/22/19 19:20 74 19 40 02/22/19 17:05 78 18 40 02/22/19 16:00 98.1 82 18 124/74 (91) 100 02/22/19 16:00 Mechanical Ventilator 02/22/19 16:00 40 02/22/19 15:23 82 02/22/19 15:02 79 18 40 Intake and Output 02/22/19 02/23/19 19:00 07:00 Intake Total 1420 ml 735 ml Output Total 400 ml 550 ml Balance 1020 ml 185 ml Intake Free Water 150 ml 130 ml IV Total 610 ml Tube Feeding 660 ml 605 ml Output Urine Total 400 ml 550 ml # Bowel Movements 1 2 Laboratory Tests 02/23/19 04:00: Arterial Blood pH 7.448, Arterial Blood Partial Pressure CO2 34.2L, Arterial Blood Partial Pressure O2 186.3H, Arterial Blood HCO3 23.1, Arterial Blood Oxygen Saturation 98.8, Arterial Blood Base Excess -0.5, Ger Test Positive 02/23/19 08:10: White Blood Count 7.4, Red Blood Count 3.58L, Hemoglobin 9.9L, Hematocrit 31.2L , Mean Corpuscular Volume 87, Mean Corpuscular Hemoglobin 27.7, Mean Corpuscular Hemoglobin Concent 31.8L, Red Cell Distribution Width 15.8H, Platelet Count 303, Mean Platelet Volume 7.6, Neutrophils (%) (Auto) 60.8, Lymphocytes (%) (Auto) 22.9, Monocytes (%) (Auto) 8.8, Eosinophils (%) (Auto) 6.7H, Basophils (%) (Auto) 0.7, Sodium Level 141, Potassium Level 4.6, Chloride Level 108H, Carbon Dioxide Level 27, Anion Gap 7, Blood Urea Nitrogen 35H, Creatinine 1.0, Estimat Glomerular Filtration Rate > 60, Glucose Level 129H, Uric Acid 3.8, Calcium Level 9.8, Phosphorus Level 2.6, Magnesium Level 2.1, Total Bilirubin 0.2, Aspartate Amino Transf (AST/SGOT) 40H, Alanine Aminotransferase (ALT/SGPT) 52, Alkaline Phosphatase 162H, C-Reactive Protein, Quantitative 2.6H, Pro-B-Type Natriuretic Peptide 382H, Total Protein 8.2, Albumin 3.0L, Globulin 5.2, Albumin/Globulin Ratio 0.6L, Thyroid Stimulating Hormone (TSH) 6.013H Height (Feet): 5 Height (Inches): 4.00 Weight (Pounds): 147 General Appearance: no apparent distress Cardiovascular: normal rate Respiratory/Chest: decreased breath sounds Abdomen: soft Objective no change Sav Salvador MD Feb 23, 2019 13:42
[2019-02-23 16:00] VITALS: BP 120/74
[2019-02-23 20:00] VITALS: BP 133/71
[2019-02-24] VITALS: BP 108/64
[2019-02-24 04:00] VITALS: BP 145/54
[2019-02-24 04:27] LABS: BASOPHILS % (AUTO) 0.5 % (0.0-2.0); EOSINOPHILS % (AUTO) 4.1 % (0.0-3.0); HEMATOCRIT 29.5 % (42.0-52.0); HEMOGLOBIN 9.4 G/DL (14.2-18.0); LYMPHOCYTES % (AUTO) 14.2 % (20.0-45.0); MEAN CORPUSCULAR VOLUME 87 FL (80-99); MONOCYTES % (AUTO) 8.9 % (1.0-10.0); NEUTROPHILS % (AUTO) 72.2 % (45.0-75.0); PLATELET COUNT 269 K/UL (150-450); RED BLOOD COUNT 3.39 M/UL (4.70-6.10); RED CELL DISTRIBUTION WIDTH 15.5 % (11.6-14.8); WHITE BLOOD COUNT 10.8 K/UL (4.8-10.8)
[2019-02-24 04:44] LABS: ANION GAP 11 mmol/L (5-15); BLOOD UREA NITROGEN 35 mg/dL (7-18); CARBON DIOXIDE 23 MMOL/L (21-32); CHLORIDE 108 MMOL/L (98-107); SODIUM 141 MMOL/L (136-145)
[2019-02-24 08:00] VITALS: BP 125/82
[2019-02-24] MEDS: Sucralfate 1gm tab GT SCH ×3 (08:36→18:00)
[2019-02-24] MEDS: Heparin 5000 units/ml inj SUBQ SCH (08:38)
--- NOTE | 2019-02-24 11:43 | Pulmonolgy Critical Care Note ---
Critical Care - Asmt/Plan Problems: (1) Respiratory failure, etlfi-dx-ybtmuji (2) Severe sepsis (3) Nephrostomy complication (4) Severe protein-calorie malnutrition (5) Feeding by G-tube Respiratory: monitor respiratory rate, adjust FIO2, CXR Cardiac: continue to monitor HR/BP Renal: F/U I&O, keep IV fluid Infectious Disease: check cultures Gastrointestinal: continue feedings/current rate Endocrine: monitor blood sugar, check TSH Hematologic: monitor H/H Affect: PRN ativan Prophylaxis: Protonix Notes Reviewed: functional tester, 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 with: nurses, consultants, corrections caseworkerloan operations manager - Objective Last 24 Hour Vital Signs Date Time Temp Pulse Resp B/P (MAP) Pulse Ox O2 Delivery O2 Flow Rate FiO2 02/24/19 10:33 87 16 40 02/24/19 09:20 80 20 40 02/24/19 08:00 96 02/24/19 08:00 Mechanical Ventilator 02/24/19 08:00 40 02/24/19 08:00 98.8 97 22 125/82 (96) 100 02/24/19 07:15 85 21 40 02/24/19 05:19 82 17 40 02/24/19 04:00 97.5 82 20 145/54 (84) 100 02/24/19 04:00 91 02/24/19 04:00 Mechanical Ventilator 02/24/19 04:00 40 02/24/19 03:10 78 18 40 02/24/19 01:12 74 17 40 02/24/19 00:00 40 02/24/19 00:00 Mechanical Ventilator 02/24/19 00:00 97.9 79 16 108/64 (79) 100 02/24/19 00:00 70 02/23/19 23:24 71 16 40 02/23/19 21:24 73 18 40 02/23/19 20:00 70 02/23/19 20:00 40 02/23/19 20:00 Mechanical Ventilator 02/23/19 20:00 97.9 71 16 133/71 (91) 100 02/23/19 19:24 71 16 40 02/23/19 17:11 73 16 40 02/23/19 16:00 40 02/23/19 16:00 Mechanical Ventilator 02/23/19 16:00 97.9 68 16 120/74 (89) 100 02/23/19 15:59 71 17 40 02/23/19 15:23 74 02/23/19 12:45 70 16 40 02/23/19 12:00 98.1 72 16 148/98 (115) 100 02/23/19 12:00 40 02/23/19 12:00 Mechanical Ventilator Status: awake Condition: critical HEENT: atraumatic Neck: full ROM Lungs: chest wall tender Heart: HR/BP unstable Abdomen: soft, feeding tube Extremities: edema Critical Care - Subjective ROS Limited/Unobtainable: Yes Condition: critical FI02: 40 Vent Support Breath Rate: 16 Vent Support Mode: AC Vent Tidal Volume: 600 Sputum Amount: Moderate PEEP: 5.0 PIP: 25 Tube Feeding Amount: 55 I&O: Intake and Output 02/23/19 02/24/19 19:00 07:00 Intake Total 810 ml 770 ml Output Total 350 ml 350 ml Balance 460 ml 420 ml Intake Free Water 150 ml 50 ml Tube Feeding 660 ml 660 ml Other 60 ml Output Urine Total 350 ml 350 ml # Bowel Movements 2 CXR: clear Labs: Laboratory Tests Test 02/24/19 02:55 White Blood Count 10.8 K/UL (4.8-10.8) Red Blood Count 3.39 M/UL (4.70-6.10) L Hemoglobin 9.4 G/DL (14.2-18.0) L Hematocrit 29.5 % (42.0-52.0) L Mean Corpuscular Volume 87 FL (80-99) Mean Corpuscular Hemoglobin 27.8 PG (27.0-31.0) Mean Corpuscular Hemoglobin Concent 32.0 G/DL (32.0-36.0) Red Cell Distribution Width 15.5 % (11.6-14.8) H Platelet Count 269 K/UL (150-450) Mean Platelet Volume 8.0 FL (6.5-10.1) Neutrophils (%) (Auto) 72.2 % (45.0-75.0) Lymphocytes (%) (Auto) 14.2 % (20.0-45.0) L Monocytes (%) (Auto) 8.9 % (1.0-10.0) Eosinophils (%) (Auto) 4.1 % (0.0-3.0) H Basophils (%) (Auto) 0.5 % (0.0-2.0) Sodium Level 141 MMOL/L (136-145) Potassium Level 4.0 MMOL/L (3.5-5.1) Chloride Level 108 MMOL/L (98-107) H Carbon Dioxide Level 23 MMOL/L (21-32) Anion Gap 11 mmol/L (5-15) Blood Urea Nitrogen 35 mg/dL (7-18) H Creatinine 1.0 MG/DL (0.55-1.30) Estimat Glomerular Filtration Rate > 60 mL/min (>60) Glucose Level 137 MG/DL (74-106) H Calcium Level 10.0 MG/DL (8.5-10.1) Huma Keating MD Feb 24, 2019 11:43
[2019-02-24 12:00] VITALS: BP 106/55
--- NOTE | 2019-02-24 12:10 | Nephrology Progress Note ---
Assessment/Plan Problem List: (1) Acute renal failure (2) Nephrostomy complication (3) UTI (urinary tract infection) (4) Hypothyroidism Assessment Azotemia /renal failure UTI Severe protein-calorie malnutrition Hypothyroidism Low Na Tracheostomy dependence Respiratory failure, [id number] h/o GI bleed Alzheimer's Feeding by G-tube Plan Gastric support Antibiotics Electrolyte adjustment and supplement as needed pulm support monitor renal parameters Avoid Nephrotoxics check H&H per orders Subjective ROS Limited/Unobtainable: Yes Objective Objective Last 24 Hour Vital Signs Date Time Temp Pulse Resp B/P (MAP) Pulse Ox O2 Delivery O2 Flow Rate FiO2 02/24/19 10:33 87 16 40 02/24/19 09:20 80 20 40 02/24/19 08:00 96 02/24/19 08:00 Mechanical Ventilator 02/24/19 08:00 40 02/24/19 08:00 98.8 97 22 125/82 (96) 100 02/24/19 07:15 85 21 40 02/24/19 05:19 82 17 40 02/24/19 04:00 97.5 82 20 145/54 (84) 100 02/24/19 04:00 91 02/24/19 04:00 Mechanical Ventilator 02/24/19 04:00 40 02/24/19 03:10 78 18 40 02/24/19 01:12 74 17 40 02/24/19 00:00 40 02/24/19 00:00 Mechanical Ventilator 02/24/19 00:00 97.9 79 16 108/64 (79) 100 02/24/19 00:00 70 02/23/19 23:24 71 16 40 02/23/19 21:24 73 18 40 02/23/19 20:00 70 02/23/19 20:00 40 02/23/19 20:00 Mechanical Ventilator 02/23/19 20:00 97.9 71 16 133/71 (91) 100 02/23/19 19:24 71 16 40 02/23/19 17:11 73 16 40 02/23/19 16:00 40 02/23/19 16:00 Mechanical Ventilator 02/23/19 16:00 97.9 68 16 120/74 (89) 100 02/23/19 15:59 71 17 40 02/23/19 15:23 74 02/23/19 12:45 70 16 40 Intake and Output 02/23/19 02/24/19 19:00 07:00 Intake Total 810 ml 770 ml Output Total 350 ml 350 ml Balance 460 ml 420 ml Intake Free Water 150 ml 50 ml Tube Feeding 660 ml 660 ml Other 60 ml Output Urine Total 350 ml 350 ml # Bowel Movements 2 Laboratory Tests 02/24/19 02:55: White Blood Count 10.8, Red Blood Count 3.39L, Hemoglobin 9.4L, Hematocrit 29.5L , Mean Corpuscular Volume 87, Mean Corpuscular Hemoglobin 27.8, Mean Corpuscular Hemoglobin Concent 32.0, Red Cell Distribution Width 15.5H, Platelet Count 269, Mean Platelet Volume 8.0, Neutrophils (%) (Auto) 72.2, Lymphocytes (%) (Auto) 14.2L, Monocytes (%) (Auto) 8.9, Eosinophils (%) (Auto) 4.1H, Basophils (%) (Auto) 0.5, Sodium Level 141, Potassium Level 4.0, Chloride Level 108H, Carbon Dioxide Level 23, Anion Gap 11, Blood Urea Nitrogen 35H, Creatinine 1.0, Estimat Glomerular Filtration Rate > 60, Glucose Level 137H, Calcium Level 10.0 Height (Feet): 5 Height (Inches): 4.00 Weight (Pounds): 147 General Appearance: no apparent distress EENT: other - trach Cardiovascular: normal rate Respiratory/Chest: decreased breath sounds Abdomen: distended Objective no change Sav Salvador MD Feb 24, 2019 12:10
--- NOTE | 2019-02-24 12:31 | General Progress Note ---
Assessment/Plan Problem List: (1) UTI (urinary tract infection) ICD Codes: N39.0 - Urinary tract infection, site not specified SNOMED: 02513260 (2) Nephrostomy complication ICD Codes: N99.528 - Other complication of incontinent external stoma of urinary tract SNOMED: 37266649 (3) Severe protein-calorie malnutrition ICD Codes: E43 - Unspecified severe protein-calorie malnutrition SNOMED: 308816089 (4) Feeding by G-tube ICD Codes: Z93.1 - Gastrostomy status SNOMED: 780522742, 800331989 (5) Respiratory failure, [id number] ICD Codes: J96.20 - Respiratory failure, [id number] SNOMED: 03613001 (6) Anemia ICD Codes: D64.9 - Anemia, unspecified SNOMED: 663756492 (7) Hypothyroidism ICD Codes: E03.9 - Hypothyroidism, unspecified SNOMED: 15236731 (8) Alzheimer's dementia ICD Codes: G30.9 - Alzheimer's disease, unspecified SNOMED: 05410714 Status: unchanged Assessment/Plan: vent abx diet eval neph f/u cbc bmp am ltach eval Subjective Constitutional: Reports: weakness Allergies: Coded Allergies: NO KNOWN DRUG ALLERGIES (Verified Allergy, Unknown, 09/11/16) All Systems: reviewed and negative except above Subjective trach vent altered Objective Last 24 Hour Vital Signs Date Time Temp Pulse Resp B/P (MAP) Pulse Ox O2 Delivery O2 Flow Rate FiO2 02/24/19 10:33 87 16 40 02/24/19 09:20 80 20 40 02/24/19 08:00 96 02/24/19 08:00 Mechanical Ventilator 02/24/19 08:00 40 02/24/19 08:00 98.8 97 22 125/82 (96) 100 02/24/19 07:15 85 21 40 02/24/19 05:19 82 17 40 02/24/19 04:00 97.5 82 20 145/54 (84) 100 02/24/19 04:00 91 02/24/19 04:00 Mechanical Ventilator 02/24/19 04:00 40 02/24/19 03:10 78 18 40 02/24/19 01:12 74 17 40 02/24/19 00:00 40 02/24/19 00:00 Mechanical Ventilator 02/24/19 00:00 97.9 79 16 108/64 (79) 100 02/24/19 00:00 70 02/23/19 23:24 71 16 40 02/23/19 21:24 73 18 40 02/23/19 20:00 70 02/23/19 20:00 40 02/23/19 20:00 Mechanical Ventilator 02/23/19 20:00 97.9 71 16 133/71 (91) 100 02/23/19 19:24 71 16 40 02/23/19 17:11 73 16 40 02/23/19 16:00 40 02/23/19 16:00 Mechanical Ventilator 02/23/19 16:00 97.9 68 16 120/74 (89) 100 02/23/19 15:59 71 17 40 02/23/19 15:23 74 02/23/19 12:45 70 16 40 Intake and Output 02/23/19 02/24/19 19:00 07:00 Intake Total 810 ml 770 ml Output Total 350 ml 350 ml Balance 460 ml 420 ml Intake Free Water 150 ml 50 ml Tube Feeding 660 ml 660 ml Other 60 ml Output Urine Total 350 ml 350 ml # Bowel Movements 2 Laboratory Tests 02/24/19 02:55: White Blood Count 10.8, Red Blood Count 3.39L, Hemoglobin 9.4L, Hematocrit 29.5L , Mean Corpuscular Volume 87, Mean Corpuscular Hemoglobin 27.8, Mean Corpuscular Hemoglobin Concent 32.0, Red Cell Distribution Width 15.5H, Platelet Count 269, Mean Platelet Volume 8.0, Neutrophils (%) (Auto) 72.2, Lymphocytes (%) (Auto) 14.2L, Monocytes (%) (Auto) 8.9, Eosinophils (%) (Auto) 4.1H, Basophils (%) (Auto) 0.5, Sodium Level 141, Potassium Level 4.0, Chloride Level 108H, Carbon Dioxide Level 23, Anion Gap 11, Blood Urea Nitrogen 35H, Creatinine 1.0, Estimat Glomerular Filtration Rate > 60, Glucose Level 137H, Calcium Level 10.0 Height (Feet): 5 Height (Inches): 4.00 Weight (Pounds): 147 General Appearance: lethargic EENT: normal ENT inspection Neck: normal alignment Cardiovascular: normal peripheral pulses, normal rate, regular rhythm Respiratory/Chest: chest wall non-tender, lungs clear, normal breath sounds Abdomen: normal bowel sounds, non tender, soft Extremities: normal inspection Edema: no edema noted Arm (L), no edema noted Arm (R), no edema noted Leg (L), no edema noted Leg (R), no edema noted Pedal (L), no edema noted Pedal (R), no edema noted Generalized Neurologic: motor weakness Skin: normal pigmentation, warm/dry Gato Viveors DO Feb 24, 2019 12:31
--- NOTE | 2019-02-24 12:43 | Infectious Diseases Prog Note ---
Assessment/Plan Assessment/Plan 68 y/o male with multiple admissions and medical probelems who was admitted on for left nephrostomy tube change. Leukocytosis Likely sepsis from UTI left nephrostomy tube placed 12/31/18 Urine Cx 02/15/19 - Proteus - Sen to Sherly and amik Hx of Infected obstructive ureteral stone w/ adjacent abscess Reba abscess was anterior to the proximal ureter adjacent a stone not seen on the current CT scan. He is s/p 1 month Ertapenem for this. R foot lateral ulcer- not infected Hx Constipation Chronic respiratory failure trach/vent dependant Hypothyroidism GERD Hypertension Hx C. diff Dysphagia s/p G-tube Anemia. CVA/TIA w/ hemiplegia functional quadriplegia chronic encephalopathy CAD CHF Dm2 GIB s/p multiple EGDs in the past hx of severe esophagitis schizoaffective disease prison resident multiple admissions VRE colonization Plan: - Monitor off abx - 02/22/19 SP meropenem #7 and vancomcyin #7 - 02/19/19 SP vancomcyin #4 - Monitor CBC and Temps - S/p Melita.Erta x 1 month - 12/23/18 SP Zosyn #11, inhaled colistin #8 for MDR P.a.for sputum organism and Fluconazole #7 for Yeast it the urine - 12/12 S/P Vancomycin and Cefepime #5 -12/08 SP Levaquin x1 -11/06 SP Amikacin #6 -11/01 SP Meropenem #4 -10/29 SP IV Vanco #2, Cefepime #2 and Tigecycline #1 -10/28 SP LEavquin x1 -10/09 SP Ertapenem #5 - 10/04 SP Meropenem #2 -10/03/18 SP IV Vancomycin #2 and Cefepime #2 -08/09/18 SP Bactrim #7 -08/03 SP Vancomycin and Cefepime #3 -08/01/18 SP Ceftriaxone x1 -Peg/trach care -aspiration precautions Thank you for this consult. We will continue to follow the patient during this hospitalization. Subjective Allergies: Coded Allergies: NO KNOWN DRUG ALLERGIES (Verified Allergy, Unknown, 09/11/16) Subjective LAKISHA Afebrile No Leukocytosis Objective Vital Signs Last 24 Hour Vital Signs Date Time Temp Pulse Resp B/P (MAP) Pulse Ox O2 Delivery O2 Flow Rate FiO2 02/24/19 12:00 40 02/24/19 12:00 99.1 85 17 106/55 (72) 100 02/24/19 12:00 Mechanical Ventilator 02/24/19 10:33 87 16 40 02/24/19 09:20 80 20 40 02/24/19 08:00 96 02/24/19 08:00 Mechanical Ventilator 02/24/19 08:00 40 02/24/19 08:00 98.8 97 22 125/82 (96) 100 02/24/19 07:15 85 21 40 02/24/19 05:19 82 17 40 02/24/19 04:00 97.5 82 20 145/54 (84) 100 02/24/19 04:00 91 02/24/19 04:00 Mechanical Ventilator 02/24/19 04:00 40 02/24/19 03:10 78 18 40 02/24/19 01:12 74 17 40 02/24/19 00:00 40 02/24/19 00:00 Mechanical Ventilator 02/24/19 00:00 97.9 79 16 108/64 (79) 100 02/24/19 00:00 70 02/23/19 23:24 71 16 40 02/23/19 21:24 73 18 40 02/23/19 20:00 70 02/23/19 20:00 40 02/23/19 20:00 Mechanical Ventilator 02/23/19 20:00 97.9 71 16 133/71 (91) 100 02/23/19 19:24 71 16 40 02/23/19 17:11 73 16 40 02/23/19 16:00 40 02/23/19 16:00 Mechanical Ventilator 02/23/19 16:00 97.9 68 16 120/74 (89) 100 02/23/19 15:59 71 17 40 02/23/19 15:23 74 02/23/19 12:45 70 16 40 Height (Feet): 5 Height (Inches): 4.00 Weight (Pounds): 147 Objective Gen: NAD HEENT: NCAT, MMM, PERRL LUNGS: CTAB, No W CARDS: RRR, S1, S2, No M/R/G, ABD: Soft, NT, ND, PEG ( No E/P), Left nephrostomy tube No (E/P) Laboratory Tests Test 02/24/19 02:55 White Blood Count 10.8 K/UL (4.8-10.8) Red Blood Count 3.39 M/UL (4.70-6.10) L Hemoglobin 9.4 G/DL (14.2-18.0) L Hematocrit 29.5 % (42.0-52.0) L Mean Corpuscular Volume 87 FL (80-99) Mean Corpuscular Hemoglobin 27.8 PG (27.0-31.0) Mean Corpuscular Hemoglobin Concent 32.0 G/DL (32.0-36.0) Red Cell Distribution Width 15.5 % (11.6-14.8) H Platelet Count 269 K/UL (150-450) Mean Platelet Volume 8.0 FL (6.5-10.1) Neutrophils (%) (Auto) 72.2 % (45.0-75.0) Lymphocytes (%) (Auto) 14.2 % (20.0-45.0) L Monocytes (%) (Auto) 8.9 % (1.0-10.0) Eosinophils (%) (Auto) 4.1 % (0.0-3.0) H Basophils (%) (Auto) 0.5 % (0.0-2.0) Sodium Level 141 MMOL/L (136-145) Potassium Level 4.0 MMOL/L (3.5-5.1) Chloride Level 108 MMOL/L (98-107) H Carbon Dioxide Level 23 MMOL/L (21-32) Anion Gap 11 mmol/L (5-15) Blood Urea Nitrogen 35 mg/dL (7-18) H Creatinine 1.0 MG/DL (0.55-1.30) Estimat Glomerular Filtration Rate > 60 mL/min (>60) Glucose Level 137 MG/DL (74-106) H Calcium Level 10.0 MG/DL (8.5-10.1) Current Medications Medications (Trade) Dose Ordered Sig/Wanda Route PRN Reason Start Time Stop Time Status Last Admin Dose Admin Acetaminophen (Tylenol) 650 mg Q4H PRN GT FEVER 02/23/19 09:45 03/17/19 10:59 Albuterol/ Ipratropium (Albuterol/ Ipratropium) 3 ml Q4H PRN HHN Shortness of Breath 02/23/19 09:45 02/28/19 09:44 Dextrose (Dextrose 50%) 25 ml Q30M PRN IV Hypoglycemia 02/15/19 11:00 03/17/19 10:59 Dextrose (Dextrose 50%) 50 ml Q30M PRN IV Hypoglycemia 02/15/19 12:45 03/17/19 12:44 Heparin Sodium (Porcine) (Heparin 5000 units/ml) 5,000 units EVERY 12 HOURS SUBQ 02/15/19 21:00 03/17/19 20:59 02/24/19 08:38 Levothyroxine Sodium (Synthroid) 88 mcg Q24H GT 02/24/19 06:30 03/26/19 06:29 02/24/19 05:52 Ondansetron HCl (Zofran) 4 mg Q6H PRN IVP Nausea & Vomiting 02/15/19 11:00 03/17/19 10:59 Polyethylene Glycol (Miralax) 17 gm DAILYPRN PRN GT Constipation 02/23/19 09:45 03/17/19 10:59 Sucralfate (Carafate) 1 gm FOUR TIMES A DAY GT 02/15/19 13:00 03/17/19 12:59 02/24/19 08:36 John Fiore MD Feb 24, 2019 12:43
[2019-02-24 16:00] VITALS: BP 98/65
[2019-02-24] MEDS ORDERED: NS 275ml ONE (18:59)
--- NOTE | 2019-02-25 10:20 | Discharge Summary ---
Discharge Summary Discharge Summary _ DATE OF ADMISSION: 02/15/2019 DATE OF DISCHARGE: 02/24/2019 DISCHARGED BY: Dr Viveros REASON FOR ADMISSION: 68 years old male with multiply chronic medical problems, including chronic ventilator dependency with tracheostomy status, COPD, diabetes mellitus type 2, hypertension, history of CVA, erosive esophagitis, Parkinson disease, seizure disorder, presented from the [facility] facility for evaluation of left- sided nephrostomy tube. Upon clinical evaluation nephrostomy tube drainage noted to be serosanguineous , possibly. blood-tinged urine. Laboratory work-up demonstrated no leukocytosis initially, hemoglobin 9.9 , hematocrit 29.6 Sodium 134. BUN 29 , creatinine 1.2. Glucose 110. Urinalysis revealed evidence of UTI. CT of the abdomen and pelvis demonstrated persistent 1.8 cm stone in the proximal/mid left ureter. Percutaneous left nephrostomy tube in place. Decreased but persistent mild left hydroureteronephrosis. Punctate nonobstructing bilateral renal stone. Moderate stool in the rectum, suggestive of fecal impaction. Bronchial wall thickening , concerning for bronchitis . Distended bladder. Patient subsequently was admitted to direct observational unit for further management. CONSULTANTS: pulmonary Dr. Keating ID specialist Dr. Daniels vocal teacher Dr. Salvador urologist [facility] COURSE: Patient admitted to direct observational unit. Ventilator support and tracheostomy care provided. Baseline ABG was done, and AC rate was decreased to 16. Repeated ABG was stable. Ventilator settings were kept as is with further titration as needed. Pulmonary toilet provided. Chest x-ray revealed no evidence of acute pulmonary pathology. Venous duplex bilateral lower extremity revealed chronic thrombus in the superficial femoral vein left lower extremity. No evidence of acute DVT. DVT prophylaxis provided. Antibiotic provided as per ID specialist recommendation. Patient spiked fever the next day after admission. Per ID specialist , patient likely had sepsis secondary to UTI. Urine culture revealed Proteus mirabilis ESBL. Sputum cultures showed Strep group G , Pseudomonas. Repeated urine culture on 02/18 was negative. Sputum culture was likely colonized as per ID specialist. Patient also had a history of infected obstructing ureteral stone with adjacent abscess. Patient received 1 month of ertapenem for this. Patient completed course for antibiotics for UTI. Leukocytosis and fevers resolved. ID specialist recommended to keep patient off antibiotics and observe closely. Follow-up chest x-ray prior to discharge showed no evidence of acute cardiopulmonary pathology. Hemoglobin and hematocrit were closely monitored with goal to keep hemoglobin above 7. Anemia work-up was consistent with anemia of chronic disease . Hemoglobin hematocrit remained stable. Prior to discharge hemoglobin 9.0, hematocrit 28.1. Strict aspiration precaution were maintained.. G-tube feeding continued with tube formula as per icu registered nurse recommendation. Protein supplements implemented in plan of care. TSH noted to be elevated, and levothyroxine dose was increased. Supportive care provided Urology seen and evaluated patient. Per urologist, patient was not a surgical candidate, given multiply chronic comorbidities. Urologist recommended keep nephrostomy tube and change every 3 to 4 months. Patient initially was placed on the IV hydration. Acute renal failure resolved with hydration. Creatinine down to normal. Nephrotoxic's were avoided. Renal parameters and electrolytes were closely monitored. Electrolytes replaced as needed. Cloth Baler closely followed. Renal ultrasound revealed no hydronephrosis. Noted mass versus prostate hypertrophy, involving the posterior base of the urinary bladder. Recommended to consider cystoscopy. Replacement of nephrostomy catheter by interventional radiology was requested on 02/19. When patient arrived to special procedure, left nephrostomy was partially dislodged. Attempts to reestablish access were unsuccessful. Radiologist recommended when the collecting system re-dilates, a de lonnie , the nephrostomy tube can be placed. Patient clinically stabilized and was ready for discharge back to subacute [facility] facility [facility] for continuation of care. FINAL DIAGNOSES: Sepsis secondary to UTI Proteus ESBL UTI Nephrostomy tube with complication/dislodgment History of infected obstructing ureteral stone with adjacent abscess/ status post 1 month of antibiotic Acute on chronic respiratory failure with ventilator dependency Tracheostomy status Acute renal failure -resolved Chronic hydronephrosis on the left Left renal atrophy Hypothyroidism with elevated TSH Dysphagia, G-tube feeding Anemia of chronic disease History of CVA with hemiplegia Functional quadriplegia Chronic encephalopathy Diabetes mellitus type 2 History of GI bleeding , status post multiply EGD Erosive esophagitis Severe protein calorie malnutrition DISCHARGE MEDICATIONS: See Medication Reconciliation list. DISCHARGE INSTRUCTIONS: Patient was discharged to the [facility] facility. Follow up with medical doctor at the facility. Amina Garcia NP Feb 25, 2019 10:20
--- NOTE | 2019-02-25 18:36 | Diagnostic Imaging Report ---
Indication: Dyspnea Technique: One view of the chest Comparison: 02/22/2019 Findings: Stable satisfactory position of tracheostomy. Lungs and pleural spaces are clear. Heart size is normal. The aorta is tortuous and calcified. Findings are unchanged Impression: Unchanged, over 2 days, findings as above.
== END 2019-02-24 19:00 | DRG 853 ==
LOC: EDBD 08:49 → EDBEDREQ 09:13 → EMR 09:49 → EDBEDREQ 10:49 → 2W 12:34
PROC: 5A1955Z Respiratory Ventilation, Greater than 96 Consecutive Hours (ICD-10-PCS; principal; 2019-02-15)
PROC: 0TP530Z Removal of Drainage Device from Kidney, Percutaneous Approach (ICD-10-PCS; 2019-02-19)
DX: A41.9 Sepsis, unspecified organism (principal); E43 Unspecified severe protein-calorie malnutrition; J96.20 Acute and chronic respiratory failure, unspecified whether with hypoxia or hypercapnia; R53.2 Functional quadriplegia; Z68.1 Body mass index [BMI] 19.9 or less, adult; N39.0 Urinary tract infection, site not specified; N17.9 Acute kidney failure, unspecified; G93.40 Encephalopathy, unspecified; Z99.11 Dependence on respirator [ventilator] status; Z43.1 Encounter for attention to gastrostomy; I69.359 Hemiplegia and hemiparesis following cerebral infarction affecting unspecified side; I82.512 Chronic embolism and thrombosis of left femoral vein; N13.2 Hydronephrosis with renal and ureteral calculous obstruction; R65.20 Severe sepsis without septic shock; N99.528 Other complication of incontinent external stoma of urinary tract; Y83.3 Surgical operation with formation of external stoma as the cause of abnormal reaction of the patient, or of later complication, without mention of misadventure at the time of the procedure; G30.9 Alzheimer's disease, unspecified; F02.80 Dementia in other diseases classified elsewhere, unspecified severity, without behavioral disturbance, psychotic disturbance, mood disturbance, and anxiety; E03.9 Hypothyroidism, unspecified; B96.4 Proteus (mirabilis) (morganii) as the cause of diseases classified elsewhere; Z16.12 Extended spectrum beta lactamase (ESBL) resistance; R13.10 Dysphagia, unspecified; Z43.0 Encounter for attention to tracheostomy; K20.8 Other esophagitis; D63.8 Anemia in other chronic diseases classified elsewhere; N26.1 Atrophy of kidney (terminal); F25.9 Schizoaffective disorder, unspecified; I25.10 Atherosclerotic heart disease of native coronary artery without angina pectoris; L97.519 Non-pressure chronic ulcer of other part of right foot with unspecified severity; I11.0 Hypertensive heart disease with heart failure; I50.9 Heart failure, unspecified; E11.9 Type 2 diabetes mellitus without complications; G40.909 Epilepsy, unspecified, not intractable, without status epilepticus; G20 Parkinson's disease
CPT/HCPCS: 36415; 36600; 50432; 71045; 74176; 76770; 80048; 80053; 80069; 80202; 81001; 81003; 82043; 82248; 82550; 82607; 82728; 82746; 82803; 83036; 83540; 83550; 83735; 83880; 83935; 84100; 84300; 84443; 84550; 85007; 85025; 85610; 85730; 86140; 87070; 87081; 87086; 87181; 87205; 89050; 93005; 93970; 94002; 94003; 94664; 99285

== ENCOUNTER 2019-04-05 19:21 | Inpatient (IN) | payer BC, MEDICARE ==
[~2019-04-05] VITALS: Ht 167.6 cm; Wt 58.5 kg
[~2019-04-05 19:21] MED LIST changes: +CRANBERRY425 MG GT
[2019-04-05 19:30] VITALS: BP 128/82
[2019-04-05] MEDS ORDERED: Pantoprazole Inj IV ONE (19:30)
--- NOTE | 2019-04-05 19:30 | NUR ---
ED Nurse Note: Pt ASHLEE from [facility], reported pt vomitting coffee ground emisis x3hrs. Pt is artificially vented by trach. Non-verbal, pt responds to name and light painful stimuli. Pt has a g-tube, no petty. Skin intact. no vomitting at this time.
[2019-04-05] MEDS ORDERED: LEVOTHYROXINE125 MCG ORAL (19:32)
[2019-04-05] MEDS ORDERED: VITAMIN C500 MG/11 PO (19:32)
[2019-04-05] MEDS ORDERED: FERROUS SULFAT325 MG ORAL (19:33)
--- NOTE | 2019-04-05 20:15 | NUR ---
ED Nurse Note: 16 F petty inserted per order, pt tolerated well. Draining purulent straw colored urine.
[2019-04-05 20:19] LABS: HEMATOCRIT 34.4 % (42.0-52.0); MEAN CORPUSCULAR VOLUME 88 FL (80-99); PLATELET COUNT 461 K/UL (150-450); RED BLOOD COUNT 3.91 M/UL (4.70-6.10); RED CELL DISTRIBUTION WIDTH 14.9 % (11.6-14.8)
[2019-04-05 20:32] LABS: ALANINE AMINOTRANSFERASE 30 U/L (12-78); ALBUMIN 3.6 G/DL (3.4-5.0); ALBUMIN/GLOBULIN RATIO 0.7 (1.0-2.7); ALKALINE PHOSPHATASE 192 U/L (46-116); ANION GAP 13 mmol/L (5-15); ASPARTATE AMINO TRANSFERASE 23 U/L (15-37); BILIRUBIN,TOTAL 0.3 MG/DL (0.2-1.0); BLOOD UREA NITROGEN 37 mg/dL (7-18); CALCIUM 10.4 MG/DL (8.5-10.1); CARBON DIOXIDE 23 MMOL/L (21-32); CHLORIDE 99 MMOL/L (98-107); CREATININE 1.2 MG/DL (0.55-1.30); POTASSIUM 3.4 MMOL/L (3.5-5.1); SODIUM 135 MMOL/L (136-145)
[2019-04-05 21:04] LABS: APPEARANCE,URINE SLIGHTLY CLOUDY; BILIRUBIN, URINE NEGATIVE (NEGATIVE); GLUCOSE, URINE (UA) NEGATIVE (NEGATIVE); KETONES,URINE NEGATIVE (NEGATIVE); LEUKOCYTE ESTERASE ,URINE 3+ (NEGATIVE); NITRITE,URINE NEGATIVE (NEGATIVE); PH,URINE 8 (4.5-8.0); PROTEIN,URINE 2+ (NEGATIVE); UROBILINOGEN,URINE NORMAL MG/DL (0.0-1.0)
[2019-04-05 21:09] LABS: COLOR,URINE YELLOW
--- NOTE | 2019-04-05 21:40 | Emergency Room Report ---
History of Present Illness General Chief Complaint: Vomiting Source: EMS Present Illness HPI 68-year-old male presents ED for evaluation. [facility] For multiple episodes of coffee-ground emesis today. History of GI bleed in the past. Is trach/vent. Nonverbal at baseline. Unable to provide any additional history at this time. No signs of distress upon arrival. Reported fevers or chills. No other aggravating relieving factors. No other associated symptoms Allergies: Coded Allergies: NO KNOWN DRUG ALLERGIES (Verified Allergy, Unknown, 09/11/16) Patient History Past Medical History: DM, HTN, CVA/TIA, dementia Past Surgical History: other - trach Pertinent Family History: none Social History: Denies: smoking, alcohol use, drug use Immunizations: UTD Reviewed Nursing Documentation: PMH: Agreed; PSxH: Agreed Nursing Documentation-PMH Past Medical History: No History, Except For Hx Hypertension: Yes Hx Pacemaker: No Hx Asthma: Yes Hx COPD: No - vent dependent Hx Diabetes: Yes - type 2 Hx Cancer: No Hx Gastrointestinal Problems: Yes - GERD Hx Dialysis: Yes Hx Neurological Problems: Yes Hx Cerebrovascular Accident: Yes Hx Transient Ischemic Attacks: Yes Hx Dementia: Yes Hx Alzheimer's Disease: Yes Hx Parkinson's Disease: Yes Hx Encephalitis: Yes Hx Seizures: Yes Hx Epilepsy: Yes Hx Paralysis: Yes - HEMIPLEGIA Hx Memory Loss: Yes Hx Concentration Difficulty: Yes Hx Speech Problem: Yes Hx Aphasia: Yes Hx Weakness: Yes Hx Fatigue: Yes Hx Neurologic Surgery: No Hx Brain Shunt: No Review of Systems All Other Systems: limited Physical Exam Vital Signs Date Time Temp Pulse Resp B/P (MAP) Pulse Ox O2 Delivery O2 Flow Rate FiO2 04/05/19 19:22 102 28 128/82 (97) 98 Endotracheal Tube 04/05/19 19:30 50 04/05/19 19:30 98.8 Sp02 EP Interpretation: reviewed, normal General Appearance: other - nonverbal Head: normocephalic Eyes: bilateral eye normal inspection, bilateral eye PERRL ENT: hearing grossly normal, normal pharynx, no angioedema, normal voice Neck: tracheotomy Respiratory: chest non-tender, lungs clear, normal breath sounds, speaking full sentences Cardiovascular #1: regular rate, rhythm, no edema Gastrointestinal: normal bowel sounds, non tender, soft, non-distended, no guarding, no rebound Rectal: deferred Genitourinary: no CVA tenderness Musculoskeletal: other - contracted lower extremites Neurologic: other - nonverbal Psychiatric: other - nonverbal Skin: other - see nursing skin notes Lymphatic: normal inspection Medical Decision Making Diagnostic Impression: Primary Impression: Upper GI bleed Additional Impression: UTI (urinary tract infection) Qualified Codes: N39.0 - Urinary tract infection, site not specified ER Course Hospital Course 68 yo M presents with coffee ground emesis Differential diagnoses include: UGIB, LGIB, hemorrhoids Clinical course Patient placed on stretcher. 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 After initial history and physical I ordered labs, IV fluids, UA patient has difficult IV access. I place peripheral EJ line IV fluids, Zofran, Protonix. Labs - marked leukocytosis, Hb/Hct stable. electrolytes ok, UA + bacteria, lactic ok EKG - sinus tachycardia, no acute ischemic changes interpreted by me CXR - no acute process I reviewed EMR. Patient well-known to [facility] and has been here multiple times for multidrug-resistant UTI. Previous show sensitivity to ertapenem. IVFs given. abx given. Case discussed with Dr. Viveros and he agreed to accept the patient to his service for further care and support I feel this is a highly complex case requiring extensive working including EKG/ Rhythm strip, Xray/CT/US, Blood/urine lab work, repeat exams while in ED, and administration of strong opiates/narcotics for pain control, admission to hospital or close patient follow up. Diagnosis - UGIB, UTI Patient admitted to SDU in serious condition Labs Test 04/05/19 19:39 04/05/19 20:00 White Blood Count 24.0 K/UL (4.8-10.8) Red Blood Count 3.91 M/UL (4.70-6.10) Hemoglobin 11.0 G/DL (14.2-18.0) Hematocrit 34.4 % (42.0-52.0) Mean Corpuscular Volume 88 FL (80-99) Mean Corpuscular Hemoglobin 28.2 PG (27.0-31.0) Mean Corpuscular Hemoglobin Concent 32.0 G/DL (32.0-36.0) Red Cell Distribution Width 14.9 % (11.6-14.8) Platelet Count 461 K/UL (150-450) Mean Platelet Volume 7.0 FL (6.5-10.1) Neutrophils (%) (Auto) % (45.0-75.0) Lymphocytes (%) (Auto) % (20.0-45.0) Monocytes (%) (Auto) % (1.0-10.0) Eosinophils (%) (Auto) % (0.0-3.0) Basophils (%) (Auto) % (0.0-2.0) Differential Total Cells Counted 100 Neutrophils % (Manual) 87 % (45-75) Lymphocytes % (Manual) 6 % (20-45) Monocytes % (Manual) 5 % (1-10) Eosinophils % (Manual) 1 % (0-3) Basophils % (Manual) 0 % (0-2) Band Neutrophils 1 % (0-8) Platelet Estimate Increased Platelet Morphology Normal Hypochromasia 1+ Prothrombin Time 10.7 SEC (9.30-11.50) Prothromb Time International Ratio 1.0 (0.9-1.1) Activated Partial Thromboplast Time 29 SEC (23-33) Sodium Level 135 MMOL/L (136-145) Potassium Level 3.4 MMOL/L (3.5-5.1) Chloride Level 99 MMOL/L (98-107) Carbon Dioxide Level 23 MMOL/L (21-32) Anion Gap 13 mmol/L (5-15) Blood Urea Nitrogen 37 mg/dL (7-18) Creatinine 1.2 MG/DL (0.55-1.30) Estimat Glomerular Filtration Rate 59.9 mL/min (>60) Glucose Level 136 MG/DL (74-106) Lactic Acid Level 1.60 mmol/L (0.4-2.0) Calcium Level 10.4 MG/DL (8.5-10.1) Total Bilirubin 0.3 MG/DL (0.2-1.0) Aspartate Amino Transf (AST/SGOT) 23 U/L (15-37) Alanine Aminotransferase (ALT/SGPT) 30 U/L (12-78) Alkaline Phosphatase 192 U/L (46-116) Total Protein 8.7 G/DL (6.4-8.2) Albumin 3.6 G/DL (3.4-5.0) Globulin 5.1 g/dL Albumin/Globulin Ratio 0.7 (1.0-2.7) Lipase 184 U/L (73-393) Urine Color Yellow Urine Appearance Slightly cloudy Urine pH 8 (4.5-8.0) Urine Specific Weiner 1.015 (1.005-1.035) Urine Protein 2+ (NEGATIVE) Urine Glucose (UA) Negative (NEGATIVE) Urine Ketones Negative (NEGATIVE) Urine Blood 3+ (NEGATIVE) Urine Nitrite Negative (NEGATIVE) Urine Bilirubin Negative (NEGATIVE) Urine Urobilinogen Normal MG/DL (0.0-1.0) Urine Leukocyte Esterase 3+ (NEGATIVE) Urine RBC 5-10 /HPF (0 - 0) Urine WBC Tntc /HPF (0 - 0) Urine Squamous Epithelial Cells Occasional /LPF Urine Bacteria Moderate /HPF (NONE) EKG Diagnostic Results Rate: tachycardiac Rhythm: NSR ST Segments: no acute changes ASA given to the pt in ED: No Rhythm Strip Diag. Results EP Interpretation: yes Rhythm: NSR, no PVC's, no ectopy Chest X-Ray Diagnostic Results Chest X-Ray Diagnostic Results : Chest X-Ray Ordered: Yes # of Views/Limited/Complete: 1 View Indication: Other EP Interpretation: Yes Interpretation: no consolidation, no effusion, no pneumothorax, no acute cardiopulmonary disease Impression: No acute disease Electronically Signed by: Electronically signed by Anup Agee MD Last Vital Signs Date Time Temp Pulse Resp B/P (MAP) Pulse Ox O2 Delivery O2 Flow Rate FiO2 04/05/19 21:26 114 24 50 04/05/19 19:52 100 Mechanical Ventilator 04/05/19 19:30 98.8 128/82 Status: improved Disposition: ADMITTED INPATIENT Condition: Serious Referrals: Gato Viveros DO (PCP) Anup Agee MD Apr 05, 2019 21:40
[2019-04-05] MEDS ORDERED: Ertapenem (INVanz) 1gm Inj IM ONE (22:00)
--- NOTE | 2019-04-05 22:10 | Diagnostic Imaging Report ---
EXAM: XR Chest, 1 View CLINICAL HISTORY: AMS TECHNIQUE: Frontal view of the chest. COMPARISON: Chest x-ray dated 02/24/2019 FINDINGS: Lungs: Unremarkable. No consolidation. Pleural space: Unremarkable. No pneumothorax. Heart: Unremarkable. No cardiomegaly. Mediastinum: Unremarkable. Bones/joints: Unremarkable. Tubes, lines and devices: Endotracheal tube within the thoracic inlet. IMPRESSION: No acute findings.
--- NOTE | 2019-04-05 23:35 | NUR ---
TRANSFER TO FLOOR: Patient transferred to as ordered, per dR Curry. Report given to ODILIA LEES. Belongings and medications given to . Family and or S/O informed of transfer.
--- NOTE | 2019-04-05 23:45 | NUR ---
NURSE NOTES: Received patient from ODILIA Schilling. patient is nonverbal, unable to make needs known. Vent settings are as follows: AC: 16, TV: 600, PEEP: 5, no s/sx of respiratory distress noted at this time. surveillance monitor shows sinus rhythm at this time. G-tube site noted, appears to be leaking. skin alterations noted pictures taken. F/C is patent and intact, draining well. REJ 18 gauge patent and intact, asymptomatic. no belongings noted. no orders from physician at this time. will contact MD for admission orders. bed in lowest position and locked, siderails up X3, call light within reach. will continue to monitor.
--- NOTE | 2019-04-06 00:19 | NUR ---
NURSE NOTES: left message for Dr. Keating regarding admission orders. awaiting call back. patient is in stable condition at this time. will continue to monitor.
--- NOTE | 2019-04-06 02:19 | NUR ---
NURSE NOTES: left another message for Dr. Keating regarding admission orders. awaiting call back. patient is in stable condition at this time. will continue to monitor.
--- NOTE | 2019-04-06 04:24 | NUR ---
NURSE NOTES: still awaiting call back from Dr. Keating. left message to call back. charge nurse and nurse food preparation supervisor both made aware. patient is in stable condition. will continue to monitor.
--- NOTE | 2019-04-06 06:00 | NUR ---
NURSE NOTES: called Dr. Keating once more for admission orders. awaiting call back. patient is in stable condition. will continue to monitor. charge nurse made aware.
--- NOTE | 2019-04-06 06:23 | NUR ---
NURSE NOTES: Received response from Dr. Keating. awaiting admission orders.
[2019-04-06] MEDS ORDERED: Miralax 17gm pkt ORAL PRN (07:15)
[2019-04-06] MEDS ORDERED: Albuterol/Ipratropium 3ml neb HHN PRN (07:15)
[2019-04-06] MEDS ORDERED: Morphine Sulfate 4mg/ml Inj (IV USE ONLY) IVP PRN (07:15)
[2019-04-06] MEDS ORDERED: LORazepam Inj 2mg/ml 1ml IV PRN (07:15)
--- NOTE | 2019-04-06 07:24 | NUR ---
HAND-OFF: Report given to ODILIA Domingo. patient in stable condition.
--- NOTE | 2019-04-06 07:24 | Consultation ---
History of Present Illness General Chief Complaint: Vomiting Present Illness HPI 68-year-old male with hx of Chronic respiratory failure, hypothyroid, malnutrition, encephalopathy, and Alzheimer's. from [facility] presented to ER with possible gastrointestinal bleed . He is lethargic, found to have UTI , admitted to [facility] for further care. Currently, pt is trach, vent, altered, lethargic in bed, and nonverbal. Allergies: Coded Allergies: NO KNOWN DRUG ALLERGIES (Verified Allergy, Unknown, 09/11/16) Medication History Scheduled Cranberry Extract (Cranberry), 425 MG GT BID, (Reported) Docusate Sodium* (Docusate Sodium*), 100 MG GT DAILY, (Reported) Ferrous Sulfate* (Ferrous Sulfate*), 325 MG ORAL DAILY, (Reported) Heparin Sod (Porcine) (Heparin Sodium*), 5,000 UNITS SUBQ EVERY 12 HOURS, ( Reported) Lansoprazole* (Lansoprazole*), 30 MG GT BID Levothyroxine Sodium* (Levothyroxine Sodium*), 75 MCG GT DAILY Levothyroxine Sodium* (Levothyroxine Sodium*), 150 MCG ORAL DAILY, (Reported) Magnesium Hydroxide* (Milk Of Magnesia*), 30 ML GT HS, (Reported) Multivitamin Liquid* (Multi-Delyn*), 15 ML GT DAILY, (Reported) Polyethylene Glycol 3350* (Miralax*), 17 GM ORAL DAILY, (Reported) Sucralfate* (Carafate*), 1 GM GT FOUR TIMES A DAY, (Reported) Scheduled PRN Acetaminophen (Acetaminophen), 640 MG GT Q4HR PRN for Prn Headache/Temp > 101, ( Reported) Miscellaneous Medications Vit C/Ascorbate Ca/Ascorb Sod (Vitamin C 500 Mg/15 Ml Liquid), 500 MG PO, ( Reported) Patient History Healthcare decision maker Resuscitation status Full Code Advanced Directive on File Past Medical/Surgical History Past Medical/Surgical History: (1) Psychosis (2) Severe protein-calorie malnutrition (3) Feeding by G-tube (4) Chronic respiratory failure (5) Esophagitis (6) Hypothyroidism (7) Alzheimer's dementia Review of Systems All Other Systems: negative except mentioned in HPI Physical Exam General Appearance: cachetic, thin Lines, tubes and drains: peripheral HEENT: normocephalic, atraumatic Respiratory/Chest: chest wall non-tender, lungs clear Breasts: no masses Cardiovascular/Chest: normal peripheral pulses, normal rate Abdomen: normal bowel sounds Genitourinary/Rectal: normal genital exam Extremities: normal range of motion Last 24 Hour Vital Signs Date Time Temp Pulse Resp B/P (MAP) Pulse Ox O2 Delivery O2 Flow Rate FiO2 04/06/19 05:28 85 16 40 04/06/19 04:00 89 04/06/19 04:00 40 04/06/19 04:00 Mechanical Ventilator 04/06/19 03:22 80 16 40 04/06/19 01:20 85 16 40 04/06/19 00:30 Mechanical Ventilator 04/05/19 23:35 99.5 105 22 98/56 100 Mechanical Ventilator 50 04/05/19 23:30 108 20 50 04/05/19 21:26 114 24 50 04/05/19 19:54 101 22 50 04/05/19 19:52 101 22 100 Mechanical Ventilator 50 04/05/19 19:30 98.8 108 28 128/82 98 Endotracheal Tube 04/05/19 19:30 102 28 Endotracheal Tube 50 04/05/19 19:22 102 28 128/82 (97) 98 Endotracheal Tube Intake and Output 04/05/19 04/06/19 19:00 07:00 Output Total 1500 ml Balance -1500 ml Output Urine Total 1500 ml # Bowel Movements 2 Laboratory Tests Test 04/05/19 19:39 04/05/19 20:00 White Blood Count 24.0 K/UL (4.8-10.8) *H Red Blood Count 3.91 M/UL (4.70-6.10) L Hemoglobin 11.0 G/DL (14.2-18.0) L Hematocrit 34.4 % (42.0-52.0) L Mean Corpuscular Volume 88 FL (80-99) Mean Corpuscular Hemoglobin 28.2 PG (27.0-31.0) Mean Corpuscular Hemoglobin Concent 32.0 G/DL (32.0-36.0) Red Cell Distribution Width 14.9 % (11.6-14.8) H Platelet Count 461 K/UL (150-450) H Mean Platelet Volume 7.0 FL (6.5-10.1) Neutrophils (%) (Auto) % (45.0-75.0) Lymphocytes (%) (Auto) % (20.0-45.0) Monocytes (%) (Auto) % (1.0-10.0) Eosinophils (%) (Auto) % (0.0-3.0) Basophils (%) (Auto) % (0.0-2.0) Differential Total Cells Counted 100 Neutrophils % (Manual) 87 % (45-75) H Lymphocytes % (Manual) 6 % (20-45) L Monocytes % (Manual) 5 % (1-10) Eosinophils % (Manual) 1 % (0-3) Basophils % (Manual) 0 % (0-2) Band Neutrophils 1 % (0-8) Platelet Estimate Increased H Platelet Morphology Normal Hypochromasia 1+ Prothrombin Time 10.7 SEC (9.30-11.50) Prothromb Time International Ratio 1.0 (0.9-1.1) Activated Partial Thromboplast Time 29 SEC (23-33) Sodium Level 135 MMOL/L (136-145) L Potassium Level 3.4 MMOL/L (3.5-5.1) L Chloride Level 99 MMOL/L (98-107) Carbon Dioxide Level 23 MMOL/L (21-32) Anion Gap 13 mmol/L (5-15) Blood Urea Nitrogen 37 mg/dL (7-18) H Creatinine 1.2 MG/DL (0.55-1.30) Estimat Glomerular Filtration Rate 59.9 mL/min (>60) Glucose Level 136 MG/DL (74-106) H Lactic Acid Level 1.60 mmol/L (0.4-2.0) Calcium Level 10.4 MG/DL (8.5-10.1) H Total Bilirubin 0.3 MG/DL (0.2-1.0) Aspartate Amino Transf (AST/SGOT) 23 U/L (15-37) Alanine Aminotransferase (ALT/SGPT) 30 U/L (12-78) Alkaline Phosphatase 192 U/L (46-116) H Total Protein 8.7 G/DL (6.4-8.2) H Albumin 3.6 G/DL (3.4-5.0) Globulin 5.1 g/dL Albumin/Globulin Ratio 0.7 (1.0-2.7) L Lipase 184 U/L (73-393) Urine Color Yellow Urine Appearance Slightly cloudy Urine pH 8 (4.5-8.0) Urine Specific Jessie 1.015 (1.005-1.035) Urine Protein 2+ (NEGATIVE) H Urine Glucose (UA) Negative (NEGATIVE) Urine Ketones Negative (NEGATIVE) Urine Blood 3+ (NEGATIVE) H Urine Nitrite Negative (NEGATIVE) Urine Bilirubin Negative (NEGATIVE) Urine Urobilinogen Normal MG/DL (0.0-1.0) Urine Leukocyte Esterase 3+ (NEGATIVE) H Urine RBC 5-10 /HPF (0 - 0) H Urine WBC Tntc /HPF (0 - 0) H Urine Squamous Epithelial Cells Occasional /LPF Urine Bacteria Moderate /HPF (NONE) H Microbiology Date/Time Source Procedure Growth Status 04/05/19 20:00 Urine,Clean Catch Urine Culture - Preliminary NO GROWTH Resulted Height (Feet): 5 Height (Inches): 6.00 Weight (Pounds): 127 Medications Current Medications Medications (Trade) Dose Ordered Sig/Wanda Route PRN Reason Start Time Stop Time Status Last Admin Dose Admin Acetaminophen (Tylenol) 650 mg Q4H PRN ORAL FEVER 04/06/19 07:15 05/06/19 07:14 UNV Albuterol/ Ipratropium (Albuterol/ Ipratropium) 3 ml EVERY 4 HOURS PRN HHN Shortness of Breath 04/06/19 07:15 04/11/19 07:14 UNV Dextrose (Dextrose 50%) STAT PRN IV Hypoglycemia 04/06/19 07:15 05/06/19 07:14 UNV Lansoprazole (Prevacid) 30 mg BID GT 04/06/19 09:00 05/06/19 08:59 UNV Levothyroxine Sodium (Synthroid) 75 mcg DAILY GT 04/06/19 09:00 05/06/19 08:59 UNV Lorazepam (Ativan 2mg/ml 1ml) 2 mg EVERY 2 HOURS PRN IV For Anxiety 04/06/19 07:15 04/13/19 07:14 UNV Morphine Sulfate (Morphine Sulfate) 4 mg EVERY 4 HOURS PRN IVP Severe Pain (Pain Scale 7-10) 04/06/19 07:15 04/13/19 07:14 UNV Ondansetron HCl (Zofran) 4 mg Q6H PRN IVP Nausea & Vomiting 04/06/19 07:15 05/06/19 07:14 UNV Polyethylene Glycol (Miralax) 17 gm DAILYPRN PRN ORAL Constipation 04/06/19 07:15 05/06/19 07:14 UNV Sodium Chloride 1,000 ml @ 75 mls/hr [id number] IV 04/06/19 22:50 05/06/19 22:49 UNV Sucralfate (Carafate) 1 gm FOUR TIMES A DAY GT 04/06/19 09:00 05/06/19 08:59 UNV Vancomycin HCl 1 gm/Dextrose 275 ml @ 183.3 mls/ hr Q24H IV 04/06/19 23:00 04/11/19 22:59 UNV Assessment/Plan Problem List: (1) Upper GI bleed ICD Codes: K92.2 - Upper gastrointestinal hemorrhage SNOMED: 16833501 (2) Respiratory failure, [id number]-hs-ddikhbh ICD Codes: J96.20 - Respiratory failure, jmuoq-ip-rnddyed SNOMED: 17276391 (3) Severe sepsis ICD Codes: A41.9 - Sepsis, unspecified organism; R65.20 - Severe sepsis without septic shock SNOMED: 19364305 (4) Malfunction of gastrostomy tube ICD Codes: K94.23 - Gastrostomy malfunction SNOMED: 357747761 (5) UTI (urinary tract infection) ICD Codes: N39.0 - Urinary tract infection, site not specified SNOMED: 21896092 Qualifiers: Qualified Codes: N39.0 - Urinary tract infection, site not specified (6) Severe protein-calorie malnutrition ICD Codes: E43 - Unspecified severe protein-calorie malnutrition SNOMED: 639301463 (7) Feeding by G-tube ICD Codes: Z93.1 - Gastrostomy status SNOMED: 161338497, 285201547 (8) Hypothyroidism ICD Codes: E03.9 - Hypothyroidism, unspecified SNOMED: 54967665 (9) Alzheimer's dementia ICD Codes: G30.9 - Alzheimer's disease, unspecified SNOMED: 48248801 Respiratory: monitor respiratory rate, adjust FIO2, CXR Cardiac: continue to monitor HR/BP Renal: F/U I&O, keep IV fluid, check electrolytes Infectious Disease: check cultures, continue antibiotics Gastrointestinal: continue feedings/current rate Endocrine: monitor blood sugar Hematologic: transfuse if hgb<8.5 Neurologic: PRN Ativan, PRN Morphine, keep patient comfortable Affect: PRN ativan Prophylaxis: Protonix Notes Reviewed: parts counter representative, 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 with: nurses, consultants, home health care case manager Huma Keating MD Apr 06, 2019 07:24
--- NOTE | 2019-04-06 07:25 | NUR ---
NURSE NOTES: Received bedside report from Hanh HARTLEY. Pt. in bed, eyes open, non-verbal. No sign of distress. On mech. vent with setting AC16/VT600/FiO2 of 40%/P5. No grimacing noted. IV at right EJ #[id number] in placed patent/intact. F/C in placed patent/intact draining yellow colored urine. Pending admitting orders. Awaiting for Dr. Keating.
[2019-04-06] MEDS ORDERED: Dextrose 50% 25ml Syringe IV PRN (07:30)
--- NOTE | 2019-04-06 07:30 | NUR ---
NURSE NOTES: Seen by Dr. Keating and enter all admitting orders. Pt. new vent setting AC14/VT600/FiO2 of 35%/P5. Will cont. to monitor.
[2019-04-06 08:00] VITALS: BP 115/73
[2019-04-06 08:59] LABS: % IRON SATURATION 11 % (15-50); IRON 24 ug/dL (50-175); TOTAL IRON BINDING CAPACITY 214 ug/dL (250-450)
[2019-04-06] MEDS ORDERED: Vancomycin 1.25gm Premix IVPB ONE (09:00)
--- NOTE | 2019-04-06 10:25 | NUR ---
RD ASSESSMENT & RECOMMENDATIONS SEE CARE ACTIVITY FOR COMPLETE ASSESSMENT DAILY ESTIMATED NEEDS: Needs based on Critical care, underweight TF STERILIZATION TECH 57.71kg 30-35 kcals/kg 6214-4171 total kcals 1.25-2 g protein/kg 72-115 g total protein 25-30 mL/kg 8131-7386 total fluid mLs NUTRITION DIAGNOSIS: * Increased kcal/prot intake needs R/T sepsis, underweight status and wound healing as evidenced by pt adm w/ critically elev WBC (24*), febrile, @69% [place] Body Weight, w/ L foot partial thickness wound. * Swallowing difficulty R/T respiratory status as evidenced by pt vent dep via trach, PEG dep. ENTERAL NUTRITION RECOMMENDATIONS: Osmolite 1.5 @ 55ml/hr x 22 hrs + Prosource x1 daily to provide 1210ml, 1815kcal, 76g+11g prot, 922ml free water * As medically able, rec starting Osmolite 1.5 @ 25ml/hr for 6 hrs, advance as tolerated to goal. * Add Prosource x 1 pack daily. * HOLD TF 1h before and 1 after Synthroid administration. * Water flush 150ml q 6 hrs/ HOB over 30 degrees ------- ADDITIONAL RECOMMENDATIONS: * Calibrated bedscale weight for accurate CBW + weekly wt monitoring * Wound care: Add JOYCELYN BID via GT Add Vit C 250mg daily via GT * Monitor for ability to initiate TF's/ NPO at this time . . .
[2019-04-06 12:00] VITALS: BP 148/71
[2019-04-06] MEDS: Sucralfate 1gm tab GT SCH ×3 (12:51→23:44)
[2019-04-06] MEDS ORDERED: Tubing IV Secondary IV ONE (15:17)
[2019-04-06] MEDS ORDERED: 1/2 NS 1000ml IV ONE (15:17)
--- NOTE | 2019-04-06 16:04 | NUR ---
CASE MANAGEMENT: INITIAL REVIEW 68 YO M ASHLEE FROM [facility] CC: COFFEE GROUND EMESIS PMHx: DM. HTN. CVA. DEMENTIA. TRACH DEPENDENT. SI:UPPER GIB T 98.8 HR 102 RR 28 B/P 128/82 SATS 98% ON MECH VENT FIO2 50 WBC 24 NA 135 K 3.4 BUN 37 GLU 136 CA 10.4 ALP 192 IS: ZOFRAN IV X1 PROTONIX IV X1 NS BOLUS X1 PATIENT ADMITTED TO SDU 04/05/2019 @ 2148 DCP: PATIENT TO BE DISCHARGED TO SNF ONCE MEDICALLY CLEARED. 04/06/2019 SI:UPPER GIB T 98.8 HR 85 RR 21 B/P 115/73 SATS 100% ON MECH VENT FIO2 35% NO LABS TODAY IS: IVF @ 75 mL/HR PREVACID GT Q12H VANCO IV Q24H CARAFATE GT Q6H SDU DCP: PATIENT TO BE DISCHARGED TO SNF ONCE MEDICALLY CLEARED. Addendum: 04/06/19 at 1851 by Christie Francis CM INTERQUAL MET
[2019-04-06] MEDS ORDERED: ACETAMINOP160 MG/51 GT (18:30)
[2019-04-06] MEDS ORDERED: SYNTHROID150 MCG GT (18:30)
[2019-04-06] MEDS ORDERED: FERROUS SU325 MG/5 M GT (18:30)
[2019-04-06] MEDS ORDERED: CARAFATE SUSP UD1 G1 GT (18:30)
[2019-04-06] MEDS ORDERED: VITAMIN C500 M1 GT (18:30)
--- NOTE | 2019-04-06 18:58 | NUR ---
HAND-OFF: Report given to Hanh HARTLEY. Pt. remain stable.
--- NOTE | 2019-04-06 18:59 | NUR ---
NURSE NOTES: Received patient from ODILIA Domingo. patient is observed resting in bed, nonverbal. no s/sx of pain noted at this time. vent to trach settings are as follows: Portex: 8, AC: 14, TV: 600, PEEP: 5; no s/sx of respiratory distress noted at this time. IV site is patent and intact, running fluids at prescribed rate. F/C is patent and intact, draining well. bed in lowest position and locked, siderails up X3, call light within reach. will continue to monitor.
--- NOTE | 2019-04-06 19:38 | NUR ---
RESPIRATORY NOTE: Received pt. on 840 vent. Vent settings are: A/C rate of 14, Vt 600, FI02 35%, PEEP +5. No respiratory distress noted, pt. sP02 @ 100%. Ambu bag @ BS. Vent plugged on red outlet. Will continue to monitor pt.
[2019-04-06 20:00] VITALS: BP 113/63
--- NOTE | 2019-04-06 20:26 | History & Physical ---
History and Physical History & Physicial IM H&P Covering Dr. Daisy Viveros Chief Complaint: Vomiting Source: EMS DOS: 04/06/19 ID 68-year-old male presents ED for evaluation. Brought in bed EMS from senior living facility. For multiple episodes of coffee-ground emesis today. History of GI bleed in the past. Is trach/vent. Nonverbal at baseline. Unable to provide any additional history at this time. No signs of distress upon arrival. Reported fevers or chills. No other aggravating relieving factors. No other associated symptoms, gi service, renal, pulm/cc, and id aware Allergies: NO KNOWN DRUG ALLERGIES (Verified Allergy, Unknown, 09/11/16) Patient History Past Medical History: DM, HTN, CVA/TIA, dementia Past Surgical History: other - trach Pertinent Family History: none Social History: Denies: smoking, alcohol use, drug use Immunizations: UTD Reviewed Nursing Documentation: PMH: Agreed; PSxH: Agreed Nursing Documentation-PMH Past Medical History: No History, Except For Hx Hypertension: Yes Hx Pacemaker: No Hx Asthma: Yes Hx COPD: No - vent dependent Hx Diabetes: Yes - type 2 Hx Cancer: No Hx Gastrointestinal Problems: Yes - GERD Hx Dialysis: Yes Hx Neurological Problems: Yes Hx Cerebrovascular Accident: Yes Hx Transient Ischemic Attacks: Yes Hx Dementia: Yes Hx Alzheimer's Disease: Yes Hx Parkinson's Disease: Yes Hx Encephalitis: Yes Hx Seizures: Yes Hx Epilepsy: Yes Hx Paralysis: Yes - HEMIPLEGIA Hx Memory Loss: Yes Hx Concentration Difficulty: Yes Hx Speech Problem: Yes Hx Aphasia: Yes Hx Weakness: Yes Hx Fatigue: Yes Hx Neurologic Surgery: No Hx Brain Shunt: No Review of Systems All Other Systems: limited Physical Exam Vitals: reviewed Gen: other - nonverbal Neck: tracheotomy Respiratory: chest non-tender, lungs clear, normal breath sounds Cv: regular rate, rhythm, no edema Gi: normal bowel sounds, non tender, soft, non-distended, no guarding, no rebound Neurologic: other - nonverbal Psychiatric: other - nonverbal Skin: other - see nursing skin notes Lymphatic: normal inspection Labs: noted Imaging: noted Assessment and Recs; # Upper GI bleed with nausea/vomiting and hemoptysis, labs have been reviewed --> r/o active bleed --> started on protonix --> check h/h q12h or more frequent as needed --> Dr. Wilson has been consulted --> zofran prn basis # Leukocytosi with UTI (urinary tract infection) MDR --> started on iv antibiotics --> as per id recs # Azotemia with dehydration --> per renal # Hypercalcemia -- on ivf --> per renal and pth ordered # Trach/vent --> as per pulm/cc management Appreciate network systems consultant recs Nikos Nath MD Apr 06, 2019 20:26
[2019-04-06] MEDS ORDERED: Vancomycin 1 GM in D5W 275 ML IV SCH (23:00)
[2019-04-07] VITALS: BP 133/77
[2019-04-07 04:00] VITALS: BP 118/56
[2019-04-07 05:15] LABS: BASOPHILS % (AUTO) 0.6 % (0.0-2.0); EOSINOPHILS % (AUTO) 4.1 % (0.0-3.0); HEMATOCRIT 27.1 % (42.0-52.0); HEMOGLOBIN 8.6 G/DL (14.2-18.0); LYMPHOCYTES % (AUTO) 19.5 % (20.0-45.0); MEAN CORPUSCULAR VOLUME 89 FL (80-99); MONOCYTES % (AUTO) 9.9 % (1.0-10.0); NEUTROPHILS % (AUTO) 65.8 % (45.0-75.0); PLATELET COUNT 326 K/UL (150-450); RED BLOOD COUNT 3.04 M/UL (4.70-6.10); WHITE BLOOD COUNT 10.9 K/UL (4.8-10.8)
[2019-04-07 05:23] LABS: ALBUMIN 2.8 G/DL (3.4-5.0); ANION GAP 9 mmol/L (5-15); BLOOD UREA NITROGEN 28 mg/dL (7-18); CALCIUM 9.2 MG/DL (8.5-10.1); CARBON DIOXIDE 24 MMOL/L (21-32); CHLORIDE 104 MMOL/L (98-107); CREATININE 1.1 MG/DL (0.55-1.30); PHOSPHORUS 3.6 MG/DL (2.5-4.9); POTASSIUM 3.9 MMOL/L (3.5-5.1); SODIUM 137 MMOL/L (136-145)
[2019-04-07] MEDS: Sucralfate 1gm tab GT SCH ×4 (05:42→23:32)
[2019-04-07 05:56] LABS: ANION GAP 9 mmol/L (5-15); BLOOD UREA NITROGEN 28 mg/dL (7-18); CALCIUM 9.3 MG/DL (8.5-10.1); CARBON DIOXIDE 22 MMOL/L (21-32); CHLORIDE 104 MMOL/L (98-107); CREATININE 1.2 MG/DL (0.55-1.30); POTASSIUM 3.9 MMOL/L (3.5-5.1); SODIUM 135 MMOL/L (136-145)
--- NOTE | 2019-04-07 07:00 | NUR ---
RESPIRATORY NOTE: Received patient on Vent settings ACVC RR 14, VT 600, FIO2 35%, PEEP +5. Patient trached with a Portex 8, secured with trache ties. Suction small amount of thick/thin owens secretions thorough trach Q2 and PRN. Breath sounds are rhonchi bilaterally. Patient alert but confused. Alarms are on and audible. Vent plugged into red outlet. Will continue to monitor thought the day.
--- NOTE | 2019-04-07 07:25 | NUR ---
NURSE NOTES: Received bedside report from Hanh HARTLEY. Pt. in bed, awake, eyes open, non-verbal. No sign of distress. On mech. vent. with setting AC14/VT600/FiO2 of 35%/P5. No grimacing noted. IV at right EJ in placed patent/intact running NS at 75cc/hr. Tolerating well. Bed in low position, locked. Call light within reach. Will cont. to monitor.
--- NOTE | 2019-04-07 07:25 | NUR ---
HAND-OFF: Report given to ODILIA Domingo. patient is in stable condition.
--- NOTE | 2019-04-07 07:35 | NUR ---
NURSE NOTES: Called Dr. Keating regarding pt. Mg 1.5 awaiting for response. Will cont. to monitor.
[2019-04-07 08:00] VITALS: BP 106/61
--- NOTE | 2019-04-07 08:55 | General Progress Note ---
Assessment/Plan Assessment/Plan: Assessment and Recs; # Upper GI bleed with nausea/vomiting and hemoptysis, labs have been reviewed --> r/o active bleed --> started on protonix --> check h/h q12h or more frequent as needed --> Dr. Wilson has been consulted --> zofran prn basis --> hgb trend 11-->8.6 # Leukocytosi with UTI (urinary tract infection) MDR --> trend 24k-->11k --> started on iv antibiotics (vanc) --> as per id recs # Azotemia with dehydration --> per renal # Hypercalcemia -- on ivf --> per renal and pth ordered # Trach/vent --> as per pulm/cc management Appreciate quality compliance consultant recs Subjective Constitutional: Denies: no symptoms, chills, diaphoresis, fever, malaise, weakness, other HEENT: Denies: no symptoms, eye pain, blurred vision, tearing, double vision, ear pain, ear discharge, nose pain, nose congestion, throat pain, throat swelling, mouth pain, mouth swelling, other Cardiovascular: Denies: no symptoms, chest pain, edema, irregular heart rate, lightheadedness, palpitations, syncope, other Neurologic/Psychiatric: Denies: no symptoms, anxiety, depressed, emotional problems, headache, numbness, paresthesia, pre-existing deficit, seizure, tingling, tremors, weakness, other Endocrine: Denies: no symptoms, excessive sweating, flushing, intolerance to cold, intolerance to heat, increased hunger, increased thirst, increased urine, unexplained weight gain, unexplained weight loss, other Allergies: Coded Allergies: NO KNOWN DRUG ALLERGIES (Verified Allergy, Unknown, 09/11/16) Subjective 04/07: nonverbal, labs reviewed, hgb is lower, no f/c, on vent Objective Last 24 Hour Vital Signs Date Time Temp Pulse Resp B/P (MAP) Pulse Ox O2 Delivery O2 Flow Rate FiO2 04/07/19 08:00 Mechanical Ventilator 04/07/19 08:00 98.7 82 16 106/61 (76) 100 04/07/19 08:00 35 04/07/19 07:34 79 15 35 04/07/19 04:53 77 15 35 04/07/19 04:00 Mechanical Ventilator 04/07/19 04:00 35 04/07/19 04:00 97.9 79 24 118/56 (76) 99 04/07/19 03:34 91 04/07/19 03:24 80 15 35 04/07/19 01:05 81 14 35 04/07/19 00:00 35 04/07/19 00:00 98.2 78 24 133/77 (95) 100 04/07/19 00:00 Mechanical Ventilator 04/06/19 23:33 73 14 35 04/06/19 23:24 82 04/06/19 21:00 75 14 35 04/06/19 20:00 35 04/06/19 20:00 Mechanical Ventilator 04/06/19 20:00 98.2 82 24 113/63 (80) 100 04/06/19 19:36 83 19 35 04/06/19 19:00 74 04/06/19 17:38 82 15 35 04/06/19 16:00 35 04/06/19 16:00 Mechanical Ventilator 04/06/19 15:16 88 23 35 04/06/19 15:15 89 04/06/19 13:22 86 16 35 04/06/19 12:00 90 04/06/19 12:00 98.4 87 21 148/71 (96) 100 04/06/19 12:00 35 04/06/19 12:00 Mechanical Ventilator 04/06/19 11:33 83 15 35 04/06/19 09:24 80 14 40 Intake and Output 04/06/19 04/07/19 19:00 07:00 Intake Total 600 ml 840 ml Output Total 300 ml 250 ml Balance 300 ml 590 ml Intake Free Water 90 ml IV Total 600 ml 750 ml Output Urine Total 300 ml 250 ml Laboratory Tests 04/07/19 03:05: White Blood Count 10.9#H, Red Blood Count 3.04L, Hemoglobin 8.6L, Hematocrit 27.1L, Mean Corpuscular Volume 89, Mean Corpuscular Hemoglobin 28.4, Mean Corpuscular Hemoglobin Concent 31.8L, Red Cell Distribution Width 15.0H, Platelet Count 326, Mean Platelet Volume 7.1, Neutrophils (%) (Auto) 65.8, Lymphocytes (%) (Auto) 19.5L, Monocytes (%) (Auto) 9.9, Eosinophils (%) (Auto) 4.1H, Basophils (%) (Auto) 0.6, Sodium Level 135L, Potassium Level 3.9, Chloride Level 104, Carbon Dioxide Level 22, Anion Gap 9, Blood Urea Nitrogen 28H, Creatinine 1.2, Estimat Glomerular Filtration Rate 59.9, Glucose Level 91, Calcium Level 9.3, Calcium (Send out) [Pending], Phosphorus Level 3.6, Albumin 2.8L, Parathyroid Hormone (Intact) [Pending] Height (Feet): 5 Height (Inches): 6.00 Weight (Pounds): 127 Objective Physical Exam Vitals: reviewed Gen: other - nonverbal Neck: tracheotomy/vent Respiratory: chest non-tender, lungs clear, ++ vent Cv: regular rate, rhythm, no edema Gi: normal bowel sounds, non tender, soft, non-distended, no guarding, no rebound Neurologic: other - nonverbal Psychiatric: other - nonverbal Skin: other - see nursing skin notes Lymphatic: normal inspection Nikos Nath MD Apr 07, 2019 08:54
[2019-04-07] MEDS ORDERED: Vancomycin 750mg/NS 275ml IVPB SCH ×2 (09:00)
--- NOTE | 2019-04-07 10:53 | GI Initial Consult Note ---
History of Present Illness General Date patient seen: Apr 07, 2019 Time patient seen: 10:49 Reason for Hospitalization: Vomiting Referring physician: WEN HICKS Reason for Consultation: COFFEE GROUNDS Present Illness HPI 68-year-old male presents ED for evaluation. Brought in bed EMS from intermediate facility. For multiple episodes of coffee-ground emesis today. History of GI bleed in the past. Is trach/vent. Nonverbal at baseline. Unable to provide any additional history at this time. No signs of distress upon arrival. Reported fevers or chills. No other aggravating relieving factors. No other associated symptoms GI consulted for GT site leakage/reported coffee grounds. ROS limited. Patient known to us from prior admission with history of severe esophagitis presents today with reported leakage from the G-tube site. The patient endoscopy was performed in July 2018, noted with GERD, diffuse ulcerative esophagitis, peptic esophageal stricture. Labs show leukocytosis and anemia. No active s/ sx of N/V/D. Patient is GT dependant. The G-tube site was assessed, noted with a 22 Dutch. The surrounding stoma was noted to have a larger circumference than the G-tube itself. It was observed to have G-tube feeding leakage around the site and an open wound. Home Meds Reported Medications Levothyroxine Sodium* (SYNTHROID*) 150 Mcg Tablet, 150 MCG GT DAILY, TAB Take in the morning on an empty stomach, at least 30 minutes before food. 04/06/19 Acetaminophen* (ACETAMINOPHEN*) 160 Mg/5 Ml Liquid, 640 MG GT Q4HR PRN for For Pain, ML 04/06/19 Ferrous Sulfate (Ferrous Sulfate) 300 Mg/5 Ml Liquid, 7.5 ML GT THREE TIMES A DAY for ANEMIA, ML 04/06/19 Ascorbic Acid* (VITAMIN C*) 500 Mg Tablet, 500 MG GT DAILY, TAB 0 Refills 04/06/19 Sucralfate (Sucralfate) 1 Gm/10 Ml Oral.susp, 10 ML GT FOUR TIMES A DAY, EA 04/06/19 Polyethylene Glycol 3350* (MIRALAX*) 17 Gm Powd.pack, 17 GM ORAL DAILY, PACKET 02/16/19 Cranberry Extract (CRANBERRY) 425 Mg Capsule, 425 MG GT BID, CAP 02/15/19 Docusate Sodium* (DOCUSATE SODIUM*) 100 Mg Capsule, 100 MG GT DAILY for HOLD FOR LBM, CAP 04/14/17 Multivitamin Liquid* (MULTI-DELYN*) 237 Ml Liquid, 15 ML GT DAILY, ML 04/14/17 Acetaminophen (Acetaminophen) 650 Mg/20.3 Ml Soln, 640 MG GT Q4HR PRN for Prn Headache/Temp > 101, ML 0 Refills 01/19/16 Discontinued Reported Medications Ferrous Sulfate* (FERROUS SULFATE*) 325 Mg Tablet, 325 MG ORAL DAILY, #30 TAB 0 Refills 04/05/19 Vit C/Ascorbate Ca/Ascorb Sod (VITAMIN C 500 MG/15 ML LIQUID) 500 Mg/15 Ml Liquid, 500 MG PO, ML 04/05/19 Levothyroxine Sodium* (LEVOTHYROXINE SODIUM*) 125 Mcg Tablet, 150 MCG ORAL DAILY , TAB Take in the morning on an empty stomach, at least 30 minutes before food. 04/05/19 Heparin Sod (Porcine) (HEPARIN SODIUM*) 5 000/1 Ml Vial, 5000 UNITS SUBQ EVERY 12 HOURS, VIAL 02/15/19 Magnesium Hydroxide* (MILK OF MAGNESIA*) 400 Mg/5 Ml Oral.susp, 30 ML GT HS for IF DOUSATE DOESN'T WORK, ML 06/01/17 Sucralfate* (CARAFATE*) 1 Gm Tablet, 1 GM GT FOUR TIMES A DAY, TAB 03/03/16 Discontinued Scripts Lansoprazole* (LANSOPRAZOLE*) 30 Mg Capsule.dr, 30 MG GT BID for 30 Days, CAP Prov:Huma Keating MD 11/08/18 Levothyroxine Sodium* (LEVOTHYROXINE SODIUM*) 75 Mcg Tablet, 75 MCG GT DAILY for 30 Days, TAB Take in the morning on an empty stomach, at least 30 minutes before food. Prov:Huma Keating MD 11/08/18 Med list reviewed/reconciled: Yes Allergies: Coded Allergies: NO KNOWN DRUG ALLERGIES (Verified Allergy, Unknown, 09/11/16) Patient History Limited by: medical condition History Provided By: Medical Record PM Narrative Past Medical History: DM, HTN, CVA/TIA, dementia Past Surgical History: other - trach Pertinent Family History: none Social History: Denies: smoking, alcohol use, drug use Immunizations: UTD Reviewed Nursing Documentation: PMH: Agreed; PSxH: Agreed Nursing Documentation-PM Past Medical History: No History, Except For Hx Hypertension: Yes Hx Pacemaker: No Hx Asthma: Yes Hx COPD: No - vent dependent Hx Diabetes: Yes - type 2 Hx Cancer: No Hx Gastrointestinal Problems: Yes - GERD Hx Dialysis: Yes Hx Neurological Problems: Yes Hx Cerebrovascular Accident: Yes Hx Transient Ischemic Attacks: Yes Hx Dementia: Yes Hx Alzheimer's Disease: Yes Hx Parkinson's Disease: Yes Hx Encephalitis: Yes Hx Seizures: Yes Hx Epilepsy: Yes Hx Paralysis: Yes - HEMIPLEGIA Hx Memory Loss: Yes Hx Concentration Difficulty: Yes Hx Speech Problem: Yes Hx Aphasia: Yes Hx Weakness: Yes Hx Fatigue: Yes Hx Neurologic Surgery: No Hx Brain Shunt: No Review of Systems All Other Systems: limited Physical Exam Vital Signs Date Time Temp Pulse Resp B/P (MAP) Pulse Ox O2 Delivery O2 Flow Rate FiO2 04/05/19 19:22 102 28 128/82 (97) 98 Endotracheal Tube 04/05/19 19:30 50 04/05/19 19:30 98.8 Sp02 EP Interpretation: reviewed Labs Laboratory Tests Test 04/07/19 03:05 White Blood Count 10.9 K/UL (4.8-10.8) #H Red Blood Count 3.04 M/UL (4.70-6.10) L Hemoglobin 8.6 G/DL (14.2-18.0) L Hematocrit 27.1 % (42.0-52.0) L Mean Corpuscular Volume 89 FL (80-99) Mean Corpuscular Hemoglobin 28.4 PG (27.0-31.0) Mean Corpuscular Hemoglobin Concent 31.8 G/DL (32.0-36.0) L Red Cell Distribution Width 15.0 % (11.6-14.8) H Platelet Count 326 K/UL (150-450) Mean Platelet Volume 7.1 FL (6.5-10.1) Neutrophils (%) (Auto) 65.8 % (45.0-75.0) Lymphocytes (%) (Auto) 19.5 % (20.0-45.0) L Monocytes (%) (Auto) 9.9 % (1.0-10.0) Eosinophils (%) (Auto) 4.1 % (0.0-3.0) H Basophils (%) (Auto) 0.6 % (0.0-2.0) Sodium Level 135 MMOL/L (136-145) L Potassium Level 3.9 MMOL/L (3.5-5.1) Chloride Level 104 MMOL/L (98-107) Carbon Dioxide Level 22 MMOL/L (21-32) Anion Gap 9 mmol/L (5-15) Blood Urea Nitrogen 28 mg/dL (7-18) H Creatinine 1.2 MG/DL (0.55-1.30) Estimat Glomerular Filtration Rate 59.9 mL/min (>60) Glucose Level 91 MG/DL (74-106) Calcium Level 9.3 MG/DL (8.5-10.1) Calcium (Send out) Pending Phosphorus Level 3.6 MG/DL (2.5-4.9) Albumin 2.8 G/DL (3.4-5.0) L Parathyroid Hormone (Intact) Pending General Appearance: no apparent distress Head: normocephalic Neck: supple Respiratory: normal breath sounds, no respiratory distress Cardiovascular: normal rate Gastrointestinal: soft Rectal: deferred Genitourinary: no CVA tenderness Musculoskeletal: back normal Neurologic: alert, responsive Skin: normal color, no rash Current Medications Current Medications Medications (Trade) Dose Ordered Sig/Wanda Route PRN Reason Start Time Stop Time Status Last Admin Dose Admin Acetaminophen (Tylenol) 650 mg Q4H PRN ORAL FEVER (temp>100.5F) 04/06/19 07:15 05/06/19 07:14 Albuterol/ Ipratropium (Albuterol/ Ipratropium) 3 ml Q4H PRN HHN Shortness of Breath 04/06/19 07:15 04/11/19 07:14 Dextrose (Dextrose 50%) 25 ml Q30M PRN IV Hypoglycemia 04/06/19 07:30 05/06/19 07:27 Dextrose (Dextrose 50%) 50 ml Q30M PRN IV hypoglycemia 04/06/19 07:30 05/06/19 07:29 Lansoprazole (Prevacid) 30 mg Q12HR GT 04/06/19 09:00 05/06/19 08:59 04/07/19 09:11 Levothyroxine Sodium (Synthroid) 75 mcg DAILY GT 04/06/19 09:00 05/06/19 08:59 04/07/19 09:11 Lorazepam (Ativan 2mg/ml 1ml) 2 mg Q2H PRN IV For Anxiety 04/06/19 07:15 04/13/19 07:14 Magnesium Sulfate 100 ml @ 100 mls/hr Q1H IVPB 04/07/19 11:30 04/07/19 13:29 Morphine Sulfate (Morphine Sulfate) 4 mg Q4H PRN IVP Severe Pain (Pain Scale 7-10) 04/06/19 07:15 04/13/19 07:14 Ondansetron HCl (Zofran) 4 mg Q6H PRN IVP Nausea & Vomiting 04/06/19 07:15 05/06/19 07:14 Polyethylene Glycol (Miralax) 17 gm DAILYPRN PRN ORAL Constipation 04/06/19 07:15 05/06/19 07:14 Sodium Chloride 1,000 ml @ 75 mls/hr [id number] IV 04/06/19 08:00 05/06/19 07:59 04/06/19 21:53 Sucralfate (Carafate) 1 gm Q6HR GT 04/06/19 12:00 05/06/19 11:59 04/07/19 05:42 Vancomycin HCl (Vanco rx to dose) 1 ea DAILY PRN MISC PER RX PROTOCOL 04/06/19 07:30 05/06/19 07:29 Vancomycin HCl 750 mg/Sodium Chloride 275 ml @ 183.333 mls/hr Q24H IVPB 04/07/19 09:00 04/12/19 08:59 04/07/19 09:11 GI: Plan Problems: (1) GT SITE LEAKING (2) Upper GI bleed (3) Severe erosive esophagitis (4) Anemia (5) Feeding by G-tube (6) Severe protein-calorie malnutrition Plan Will consider EGD to evaluate reported coffee-ground emesis. Wound care consult. Reinforced the G-tube site dressings. GT retention ring readjusted, may need GT change if site continues to leak. Monitor H&H, as needed transfusions prevacid twice daily carafate IV PO hydration follow labs Discussed with Dr. Wilson. Thank you for this patient referral, we will follow. The patient was seen and examined at bedside and all new and available data was reviewed in the patients chart. I agree with the above findings, impression and plan. (Patient seen earlier today. Signature stamp does not reflect patient encounter time.). - MD Sangita Cerna Anh-Jim ANDRE Apr 07, 2019 10:53
--- NOTE | 2019-04-07 11:02 | NUR ---
EMERGENCY MEDICINE PHYSICIANLITHOGRAPHIC STRIPPER SI: RESP FAILURE TRACH/VENT DEPENDENT,GI BLEED T. 98.7 HR 82 RR 16 B/P 106/66 AC 14 TV 600 FIO2 35% PEEP 5 WBC 10.9 H/H 8.6/27.1 BUN 28 IS: MAGNESIUM IV VANCO IV IVF NS @ 75ML/HR PREVACID GT STEP DOWN STATUS
--- NOTE | 2019-04-07 11:17 | NUR ---
*-* INSURANCE *-* CLINICALS AND REVIEWS HAVE BEEN FAXED TO: [employer] [facility] [phone] *-* CHECK THE BAR FOR UPDATED INFO *-*
--- NOTE | 2019-04-07 11:21 | Pulmonolgy Critical Care Note ---
Critical Care - Asmt/Plan Problems: (1) Septic shock (2) Respiratory failure, [id number] (3) Acute encephalopathy (4) UTI (urinary tract infection) (5) Alzheimer's dementia (6) Severe erosive esophagitis (7) Feeding by G-tube (8) Severe protein-calorie malnutrition Respiratory: monitor respiratory rate, adjust FIO2, CXR Cardiac: continue to monitor HR/BP Renal: F/U I&O, keep IV fluid, check electrolytes Infectious Disease: check cultures Gastrointestinal: continue feedings/current rate Endocrine: monitor blood sugar, check HgA1C Hematologic: transfuse if hgb<8.5 Neurologic: PRN Ativan, PRN Morphine, keep patient comfortable Disposition: keep in ICU Notes Reviewed: real estate subagent, cardio, 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 with: nurses, consultants, field case managerproject account manager - Objective Last 24 Hour Vital Signs Date Time Temp Pulse Resp B/P (MAP) Pulse Ox O2 Delivery O2 Flow Rate FiO2 04/07/19 11:06 82 14 35 04/07/19 09:00 81 15 35 04/07/19 08:00 Mechanical Ventilator 04/07/19 08:00 98.7 82 16 106/61 (76) 100 04/07/19 08:00 35 04/07/19 07:43 79 04/07/19 07:34 79 15 35 04/07/19 04:53 77 15 35 04/07/19 04:00 Mechanical Ventilator 04/07/19 04:00 35 04/07/19 04:00 97.9 79 24 118/56 (76) 99 04/07/19 03:34 91 04/07/19 03:24 80 15 35 04/07/19 01:05 81 14 35 04/07/19 00:00 35 04/07/19 00:00 98.2 78 24 133/77 (95) 100 04/07/19 00:00 Mechanical Ventilator 04/06/19 23:33 73 14 35 04/06/19 23:24 82 04/06/19 21:00 75 14 35 04/06/19 20:00 35 04/06/19 20:00 Mechanical Ventilator 04/06/19 20:00 98.2 82 24 113/63 (80) 100 04/06/19 19:36 83 19 35 04/06/19 19:00 74 04/06/19 17:38 82 15 35 04/06/19 16:00 35 04/06/19 16:00 Mechanical Ventilator 04/06/19 15:16 88 23 35 04/06/19 15:15 89 04/06/19 13:22 86 16 35 04/06/19 12:00 90 04/06/19 12:00 98.4 87 21 148/71 (96) 100 04/06/19 12:00 35 04/06/19 12:00 Mechanical Ventilator 04/06/19 11:33 83 15 35 Status: awake Condition: critical Lungs: clear, chest wall tender Heart: regular Abdomen: non-tender Extremities: no C/C/E Micro: Microbiology Date/Time Source Procedure Growth Status 04/05/19 19:39 Blood Blood Culture - Preliminary NO GROWTH AFTER 24 HOURS Resulted 04/05/19 19:20 Blood Blood Culture - Preliminary NO GROWTH AFTER 24 HOURS Resulted 04/05/19 20:00 Urine,Clean Catch Urine Culture - Preliminary Gram Negative Bacillus 1 Resulted Critical Care - Subjective ROS Limited/Unobtainable: Yes Condition: critical EKG Rhythm: Sinus Tachycardia FI02: 35 Vent Support Breath Rate: 14 Vent Support Mode: AC Vent Tidal Volume: 600 Sputum Amount: Moderate PEEP: 5.0 PIP: 25 I&O: Intake and Output 04/06/19 04/07/19 19:00 07:00 Intake Total 600 ml 840 ml Output Total 300 ml 250 ml Balance 300 ml 590 ml Intake Free Water 90 ml IV Total 600 ml 750 ml Output Urine Total 300 ml 250 ml Labs: Laboratory Tests Test 04/07/19 03:05 White Blood Count 10.9 K/UL (4.8-10.8) #H Red Blood Count 3.04 M/UL (4.70-6.10) L Hemoglobin 8.6 G/DL (14.2-18.0) L Hematocrit 27.1 % (42.0-52.0) L Mean Corpuscular Volume 89 FL (80-99) Mean Corpuscular Hemoglobin 28.4 PG (27.0-31.0) Mean Corpuscular Hemoglobin Concent 31.8 G/DL (32.0-36.0) L Red Cell Distribution Width 15.0 % (11.6-14.8) H Platelet Count 326 K/UL (150-450) Mean Platelet Volume 7.1 FL (6.5-10.1) Neutrophils (%) (Auto) 65.8 % (45.0-75.0) Lymphocytes (%) (Auto) 19.5 % (20.0-45.0) L Monocytes (%) (Auto) 9.9 % (1.0-10.0) Eosinophils (%) (Auto) 4.1 % (0.0-3.0) H Basophils (%) (Auto) 0.6 % (0.0-2.0) Sodium Level 135 MMOL/L (136-145) L Potassium Level 3.9 MMOL/L (3.5-5.1) Chloride Level 104 MMOL/L (98-107) Carbon Dioxide Level 22 MMOL/L (21-32) Anion Gap 9 mmol/L (5-15) Blood Urea Nitrogen 28 mg/dL (7-18) H Creatinine 1.2 MG/DL (0.55-1.30) Estimat Glomerular Filtration Rate 59.9 mL/min (>60) Glucose Level 91 MG/DL (74-106) Calcium Level 9.3 MG/DL (8.5-10.1) Calcium (Send out) Pending Phosphorus Level 3.6 MG/DL (2.5-4.9) Albumin 2.8 G/DL (3.4-5.0) L Parathyroid Hormone (Intact) Pending Huma Keating MD Apr 07, 2019 11:21
[2019-04-07 12:00] VITALS: BP 136/70
--- NOTE | 2019-04-07 12:28 | Consultation ---
History of Present Illness General Date patient seen: Apr 07, 2019 Chief Complaint: Vomiting Referring physician: WEN HICKS Reason for Consultation: COFFEE GROUNDS Present Illness HPI This is a 68-year-old male well-known to me from prior admissions who is a care home resident with multiple medical comorbidities who presented for evaluation of coffee-ground emesis. Patient has a known history of GI bleeding which is required endoscopy in the past but no active surgery. Patient now presents with leukocytosis, anemia, coffee-ground emesis. On admission patient also identified to have leaking g tube site with wound which had been cared for during prior admissions and still continue to require care. Surgery called to evaluate and assist with care and management of patient. Patient seen, patient divided, chart reviewed. He is trach/vent. Nonverbal at baseline. Unable to provide any additional history at this time. No signs of distress upon arrival Allergies: Coded Allergies: NO KNOWN DRUG ALLERGIES (Verified Allergy, Unknown, 09/11/16) Medication History Scheduled Ascorbic Acid* (Vitamin C*), 500 MG GT DAILY, (Reported) Cranberry Extract (Cranberry), 425 MG GT BID, (Reported) Docusate Sodium* (Docusate Sodium*), 100 MG GT DAILY, (Reported) Ferrous Sulfate (Ferrous Sulfate), 7.5 ML GT THREE TIMES A DAY, (Reported) Levothyroxine Sodium* (Synthroid*), 150 MCG GT DAILY, (Reported) Multivitamin Liquid* (Multi-Delyn*), 15 ML GT DAILY, (Reported) Polyethylene Glycol 3350* (Miralax*), 17 GM ORAL DAILY, (Reported) Sucralfate (Sucralfate), 10 ML GT FOUR TIMES A DAY, (Reported) Scheduled PRN Acetaminophen (Acetaminophen), 640 MG GT Q4HR PRN for Prn Headache/Temp > 101, ( Reported) Acetaminophen* (Acetaminophen*), 640 MG GT Q4HR PRN for For Pain, (Reported) Discontinued Medications Ferrous Sulfate* (Ferrous Sulfate*), 325 MG ORAL DAILY, (Reported) Discontinued Reason: Prescription changed Heparin Sod (Porcine) (Heparin Sodium*), 5,000 UNITS SUBQ EVERY 12 HOURS, ( Reported) Discontinued Reason: Therapy completed Lansoprazole* (Lansoprazole*), 30 MG GT BID Discontinued Reason: Therapy completed Levothyroxine Sodium* (Levothyroxine Sodium*), 75 MCG GT DAILY Discontinued Reason: Therapy completed Levothyroxine Sodium* (Levothyroxine Sodium*), 150 MCG ORAL DAILY, (Reported) Discontinued Reason: Therapy completed Magnesium Hydroxide* (Milk Of Magnesia*), 30 ML GT HS, (Reported) Discontinued Reason: Therapy completed Sucralfate* (Carafate*), 1 GM GT FOUR TIMES A DAY, (Reported) Discontinued Reason: Prescription changed Vit C/Ascorbate Ca/Ascorb Sod (Vitamin C 500 Mg/15 Ml Liquid), 500 MG PO, ( Reported) Discontinued Reason: Prescription changed Patient History Limited by: medical condition History Provided By: Significant Other, PMD Healthcare decision maker Resuscitation status Full Code Advanced Directive on File Past Medical/Surgical History Past Medical/Surgical History: (1) Severe protein-calorie malnutrition (2) Feeding by G-tube (3) Respiratory failure, [id number] (4) Anemia (5) Chronic respiratory failure (6) Septic shock (7) Hypothyroidism (8) Aspiration pneumonia (9) Pyelonephritis (10) C. difficile colitis (11) Malfunction of gastrostomy tube (12) Acute encephalopathy (13) MDR Acinetobacter baumannii infection (14) Severe erosive esophagitis (15) Upper GI bleed (16) Alzheimer's dementia (17) Hypokalemia (18) GT SITE LEAKING (19) Severe sepsis (20) UTI (urinary tract infection) Review of Systems ROS Narrative Unable to obtain given patient's medical condition Physical Exam General Appearance: no apparent distress Lines, tubes and drains: peripheral HEENT: mucous membranes moist Neck: normal inspection, trach, other Respiratory/Chest: decreased breath sounds, on vent Cardiovascular/Chest: normal rate Abdomen: soft, no organomegaly, no mass, feeding tube Extremities: other Skin Exam: other Last 24 Hour Vital Signs Date Time Temp Pulse Resp B/P (MAP) Pulse Ox O2 Delivery O2 Flow Rate FiO2 04/07/19 11:06 82 14 35 04/07/19 09:00 81 15 35 04/07/19 08:00 Mechanical Ventilator 04/07/19 08:00 98.7 82 16 106/61 (76) 100 04/07/19 08:00 35 04/07/19 07:43 79 04/07/19 07:34 79 15 35 04/07/19 04:53 77 15 35 04/07/19 04:00 Mechanical Ventilator 04/07/19 04:00 35 04/07/19 04:00 97.9 79 24 118/56 (76) 99 04/07/19 03:34 91 04/07/19 03:24 80 15 35 04/07/19 01:05 81 14 35 04/07/19 00:00 35 04/07/19 00:00 98.2 78 24 133/77 (95) 100 04/07/19 00:00 Mechanical Ventilator 04/06/19 23:33 73 14 35 04/06/19 23:24 82 04/06/19 21:00 75 14 35 04/06/19 20:00 35 04/06/19 20:00 Mechanical Ventilator 04/06/19 20:00 98.2 82 24 113/63 (80) 100 04/06/19 19:36 83 19 35 04/06/19 19:00 74 04/06/19 17:38 82 15 35 04/06/19 16:00 35 04/06/19 16:00 Mechanical Ventilator 04/06/19 15:16 88 23 35 04/06/19 15:15 89 04/06/19 13:22 86 16 35 Intake and Output 04/06/19 04/07/19 19:00 07:00 Intake Total 600 ml 840 ml Output Total 300 ml 250 ml Balance 300 ml 590 ml Intake Free Water 90 ml IV Total 600 ml 750 ml Output Urine Total 300 ml 250 ml Laboratory Tests Test 04/07/19 03:05 White Blood Count 10.9 K/UL (4.8-10.8) #H Red Blood Count 3.04 M/UL (4.70-6.10) L Hemoglobin 8.6 G/DL (14.2-18.0) L Hematocrit 27.1 % (42.0-52.0) L Mean Corpuscular Volume 89 FL (80-99) Mean Corpuscular Hemoglobin 28.4 PG (27.0-31.0) Mean Corpuscular Hemoglobin Concent 31.8 G/DL (32.0-36.0) L Red Cell Distribution Width 15.0 % (11.6-14.8) H Platelet Count 326 K/UL (150-450) Mean Platelet Volume 7.1 FL (6.5-10.1) Neutrophils (%) (Auto) 65.8 % (45.0-75.0) Lymphocytes (%) (Auto) 19.5 % (20.0-45.0) L Monocytes (%) (Auto) 9.9 % (1.0-10.0) Eosinophils (%) (Auto) 4.1 % (0.0-3.0) H Basophils (%) (Auto) 0.6 % (0.0-2.0) Sodium Level 135 MMOL/L (136-145) L Potassium Level 3.9 MMOL/L (3.5-5.1) Chloride Level 104 MMOL/L (98-107) Carbon Dioxide Level 22 MMOL/L (21-32) Anion Gap 9 mmol/L (5-15) Blood Urea Nitrogen 28 mg/dL (7-18) H Creatinine 1.2 MG/DL (0.55-1.30) Estimat Glomerular Filtration Rate 59.9 mL/min (>60) Glucose Level 91 MG/DL (74-106) Calcium Level 9.3 MG/DL (8.5-10.1) Calcium (Send out) Pending Phosphorus Level 3.6 MG/DL (2.5-4.9) Albumin 2.8 G/DL (3.4-5.0) L Parathyroid Hormone (Intact) Pending Height (Feet): 5 Height (Inches): 6.00 Weight (Pounds): 127 Medications Current Medications Medications (Trade) Dose Ordered Sig/Wanda Route PRN Reason Start Time Stop Time Status Last Admin Dose Admin Acetaminophen (Tylenol) 650 mg Q4H PRN ORAL FEVER (temp>100.5F) 04/06/19 07:15 05/06/19 07:14 Albuterol/ Ipratropium (Albuterol/ Ipratropium) 3 ml Q4H PRN HHN Shortness of Breath 04/06/19 07:15 04/11/19 07:14 Dextrose (Dextrose 50%) 25 ml Q30M PRN IV Hypoglycemia 04/06/19 07:30 05/06/19 07:27 Dextrose (Dextrose 50%) 50 ml Q30M PRN IV hypoglycemia 04/06/19 07:30 05/06/19 07:29 Lansoprazole (Prevacid) 30 mg Q12HR GT 04/06/19 09:00 05/06/19 08:59 04/07/19 09:11 Levothyroxine Sodium (Synthroid) 75 mcg DAILY GT 04/06/19 09:00 05/06/19 08:59 04/07/19 09:11 Lorazepam (Ativan 2mg/ml 1ml) 2 mg Q2H PRN IV For Anxiety 04/06/19 07:15 04/13/19 07:14 Magnesium Sulfate 100 ml @ 100 mls/hr Q1H IVPB 04/07/19 11:30 04/07/19 13:29 Morphine Sulfate (Morphine Sulfate) 4 mg Q4H PRN IVP Severe Pain (Pain Scale 7-10) 04/06/19 07:15 04/13/19 07:14 Ondansetron HCl (Zofran) 4 mg Q6H PRN IVP Nausea & Vomiting 04/06/19 07:15 05/06/19 07:14 Polyethylene Glycol (Miralax) 17 gm DAILYPRN PRN ORAL Constipation 04/06/19 07:15 05/06/19 07:14 Sodium Chloride 1,000 ml @ 75 mls/hr [id number] IV 04/06/19 08:00 05/06/19 07:59 04/07/19 10:59 Sucralfate (Carafate) 1 gm Q6HR GT 04/06/19 12:00 05/06/19 11:59 04/07/19 05:42 Vancomycin HCl (Vanco rx to dose) 1 ea DAILY PRN MISC PER RX PROTOCOL 04/06/19 07:30 05/06/19 07:29 Vancomycin HCl 750 mg/Sodium Chloride 275 ml @ 183.333 mls/hr Q24H IVPB 04/07/19 09:00 04/12/19 08:59 04/07/19 09:11 Assessment/Plan Problem List: (1) Severe protein-calorie malnutrition Assessment & Plan: DAILY ESTIMATED NEEDS: Needs based on Critical care, underweight 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 * Swallowing difficulty R/T respiratory status as evidenced by pt vent dep via trach, PEG dep. ENTERAL NUTRITION RECOMMENDATIONS: Osmolite 1.5 @ 55ml/hr x 22 hrs + Prosource x1 daily to provide 1210ml, 1815kcal, 76g+11g prot, 922ml free water * As medically able, rec starting Osmolite 1.5 @ 25ml/hr for 6 hrs, advance as tolerated to goal. * Add Prosource x 1 pack daily. * HOLD TF 1h before and 1 after Synthroid administration. * Water flush 150ml q 6 hrs/ HOB over 30 degrees ------- ADDITIONAL RECOMMENDATIONS: * Calibrated bedscale weight for accurate CBW + weekly wt monitoring * Wound care: Add JOYCELYN BID via GT Add Vit C 250mg daily via GT ICD Codes: E43 - Unspecified severe protein-calorie malnutrition SNOMED: 966798135 (2) Upper GI bleed Assessment & Plan: Patient presented with coffee ground emesis, anemia, leukocytosis history of erosive esophagitis prior endoscopy notes reviewed GI note noted recommend PPI scope as per GI trend labs ICD Codes: K92.2 - Upper gastrointestinal hemorrhage SNOMED: 88271141 (3) Malfunction of gastrostomy tube Assessment & Plan: Patient pulls tube intermittently g tube site wound has improved since last admission site clean and needs to be monitored / maintained no significant leak today will apply silver nitrate as needed to wound to allow for healing will follow wound to ensure healing ICD Codes: K94.23 - Gastrostomy malfunction SNOMED: 614442249 (4) GT SITE LEAKING Quirino Bernard Apr 07, 2019 12:28
--- NOTE | 2019-04-07 12:32 | Consultation ---
History of Present Illness General Date patient seen: Apr 07, 2019 Chief Complaint: Vomiting Referring physician: WEN HIKCS Reason for Consultation: COFFEE GROUNDS Present Illness HPI 68 y/o M with hx of chronic resp failure trach/vent dependant, diffuse ulcerative esophagitis, peptic esophageal stricture, asthma, GERD, Dm2, CVA/TIA w/ hemiplegia, functional quadriplegia, CAD, CHF, ESBL UTI 07/2018, GIB s/p multiple EGDs in the past, schizoaffective disorder, Dementia, hypothyroidism, malnutrition, non verbal, infected obstuctive ureterolithiasis/w abscess s/p L NT palced 12/2018, encephalopathy, Alzheimer's disease, multiple admissions, subacute facility resident presented to ED on 04/05 with possible GIB (multiple episodes of coffee-ground emesis), lethargy. Reported fevers and chills. Also leakage from GT site. Upon admission noted to have leukocytosis and andemia. No n/v/d. Of note patient last admitted 02/15-02/24 for L nephrostomy tube excahange, leukocytosis. He was treated for UTI. Allergies: Coded Allergies: NO KNOWN DRUG ALLERGIES (Verified Allergy, Unknown, 09/11/16) Medication History Scheduled Ascorbic Acid* (Vitamin C*), 500 MG GT DAILY, (Reported) Cranberry Extract (Cranberry), 425 MG GT BID, (Reported) Docusate Sodium* (Docusate Sodium*), 100 MG GT DAILY, (Reported) Ferrous Sulfate (Ferrous Sulfate), 7.5 ML GT THREE TIMES A DAY, (Reported) Levothyroxine Sodium* (Synthroid*), 150 MCG GT DAILY, (Reported) Multivitamin Liquid* (Multi-Delyn*), 15 ML GT DAILY, (Reported) Polyethylene Glycol 3350* (Miralax*), 17 GM ORAL DAILY, (Reported) Sucralfate (Sucralfate), 10 ML GT FOUR TIMES A DAY, (Reported) Scheduled PRN Acetaminophen (Acetaminophen), 640 MG GT Q4HR PRN for Prn Headache/Temp > 101, ( Reported) Acetaminophen* (Acetaminophen*), 640 MG GT Q4HR PRN for For Pain, (Reported) Discontinued Medications Ferrous Sulfate* (Ferrous Sulfate*), 325 MG ORAL DAILY, (Reported) Discontinued Reason: Prescription changed Heparin Sod (Porcine) (Heparin Sodium*), 5,000 UNITS SUBQ EVERY 12 HOURS, ( Reported) Discontinued Reason: Therapy completed Lansoprazole* (Lansoprazole*), 30 MG GT BID Discontinued Reason: Therapy completed Levothyroxine Sodium* (Levothyroxine Sodium*), 75 MCG GT DAILY Discontinued Reason: Therapy completed Levothyroxine Sodium* (Levothyroxine Sodium*), 150 MCG ORAL DAILY, (Reported) Discontinued Reason: Therapy completed Magnesium Hydroxide* (Milk Of Magnesia*), 30 ML GT HS, (Reported) Discontinued Reason: Therapy completed Sucralfate* (Carafate*), 1 GM GT FOUR TIMES A DAY, (Reported) Discontinued Reason: Prescription changed Vit C/Ascorbate Ca/Ascorb Sod (Vitamin C 500 Mg/15 Ml Liquid), 500 MG PO, ( Reported) Discontinued Reason: Prescription changed Patient History Healthcare decision maker Resuscitation status Full Code Advanced Directive on File Patient History Narrative Pmhx: as above Shx: Denies: smoking, alcohol use, drug use Fhx: non contributory Review of Systems All Other Systems: negative except mentioned in HPI Physical Exam Physical Exam Narrative General Appearance: cachetic, thin Lines, tubes and drains: peripheral HEENT: normocephalic, atraumatic Respiratory/Chest: chest wall non-tender, lungs clear Breasts: no masses Cardiovascular/Chest: normal peripheral pulses, normal rate Abdomen: normal bowel sounds Extremities: normal range of motion Last 24 Hour Vital Signs Date Time Temp Pulse Resp B/P (MAP) Pulse Ox O2 Delivery O2 Flow Rate FiO2 04/07/19 11:06 82 14 35 04/07/19 09:00 81 15 35 04/07/19 08:00 Mechanical Ventilator 04/07/19 08:00 98.7 82 16 106/61 (76) 100 04/07/19 08:00 35 04/07/19 07:43 79 04/07/19 07:34 79 15 35 04/07/19 04:53 77 15 35 04/07/19 04:00 Mechanical Ventilator 04/07/19 04:00 35 04/07/19 04:00 97.9 79 24 118/56 (76) 99 04/07/19 03:34 91 04/07/19 03:24 80 15 35 04/07/19 01:05 81 14 35 04/07/19 00:00 35 04/07/19 00:00 98.2 78 24 133/77 (95) 100 04/07/19 00:00 Mechanical Ventilator 04/06/19 23:33 73 14 35 04/06/19 23:24 82 04/06/19 21:00 75 14 35 04/06/19 20:00 35 04/06/19 20:00 Mechanical Ventilator 04/06/19 20:00 98.2 82 24 113/63 (80) 100 04/06/19 19:36 83 19 35 04/06/19 19:00 74 04/06/19 17:38 82 15 35 04/06/19 16:00 35 04/06/19 16:00 Mechanical Ventilator 04/06/19 15:16 88 23 35 04/06/19 15:15 89 04/06/19 13:22 86 16 35 Intake and Output 04/06/19 04/07/19 19:00 07:00 Intake Total 600 ml 840 ml Output Total 300 ml 250 ml Balance 300 ml 590 ml Intake Free Water 90 ml IV Total 600 ml 750 ml Output Urine Total 300 ml 250 ml Laboratory Tests Test 04/07/19 03:05 White Blood Count 10.9 K/UL (4.8-10.8) #H Red Blood Count 3.04 M/UL (4.70-6.10) L Hemoglobin 8.6 G/DL (14.2-18.0) L Hematocrit 27.1 % (42.0-52.0) L Mean Corpuscular Volume 89 FL (80-99) Mean Corpuscular Hemoglobin 28.4 PG (27.0-31.0) Mean Corpuscular Hemoglobin Concent 31.8 G/DL (32.0-36.0) L Red Cell Distribution Width 15.0 % (11.6-14.8) H Platelet Count 326 K/UL (150-450) Mean Platelet Volume 7.1 FL (6.5-10.1) Neutrophils (%) (Auto) 65.8 % (45.0-75.0) Lymphocytes (%) (Auto) 19.5 % (20.0-45.0) L Monocytes (%) (Auto) 9.9 % (1.0-10.0) Eosinophils (%) (Auto) 4.1 % (0.0-3.0) H Basophils (%) (Auto) 0.6 % (0.0-2.0) Sodium Level 135 MMOL/L (136-145) L Potassium Level 3.9 MMOL/L (3.5-5.1) Chloride Level 104 MMOL/L (98-107) Carbon Dioxide Level 22 MMOL/L (21-32) Anion Gap 9 mmol/L (5-15) Blood Urea Nitrogen 28 mg/dL (7-18) H Creatinine 1.2 MG/DL (0.55-1.30) Estimat Glomerular Filtration Rate 59.9 mL/min (>60) Glucose Level 91 MG/DL (74-106) Calcium Level 9.3 MG/DL (8.5-10.1) Calcium (Send out) Pending Phosphorus Level 3.6 MG/DL (2.5-4.9) Albumin 2.8 G/DL (3.4-5.0) L Parathyroid Hormone (Intact) Pending Height (Feet): 5 Height (Inches): 6.00 Weight (Pounds): 127 Medications Current Medications Medications (Trade) Dose Ordered Sig/Wanda Route PRN Reason Start Time Stop Time Status Last Admin Dose Admin Acetaminophen (Tylenol) 650 mg Q4H PRN ORAL FEVER (temp>100.5F) 04/06/19 07:15 05/06/19 07:14 Albuterol/ Ipratropium (Albuterol/ Ipratropium) 3 ml Q4H PRN HHN Shortness of Breath 04/06/19 07:15 04/11/19 07:14 Dextrose (Dextrose 50%) 25 ml Q30M PRN IV Hypoglycemia 04/06/19 07:30 05/06/19 07:27 Dextrose (Dextrose 50%) 50 ml Q30M PRN IV hypoglycemia 04/06/19 07:30 05/06/19 07:29 Lansoprazole (Prevacid) 30 mg Q12HR GT 04/06/19 09:00 05/06/19 08:59 04/07/19 09:11 Levothyroxine Sodium (Synthroid) 75 mcg DAILY GT 04/06/19 09:00 05/06/19 08:59 04/07/19 09:11 Lorazepam (Ativan 2mg/ml 1ml) 2 mg Q2H PRN IV For Anxiety 04/06/19 07:15 04/13/19 07:14 Magnesium Sulfate 100 ml @ 100 mls/hr Q1H IVPB 04/07/19 11:30 04/07/19 13:29 Morphine Sulfate (Morphine Sulfate) 4 mg Q4H PRN IVP Severe Pain (Pain Scale 7-10) 04/06/19 07:15 04/13/19 07:14 Ondansetron HCl (Zofran) 4 mg Q6H PRN IVP Nausea & Vomiting 04/06/19 07:15 05/06/19 07:14 Polyethylene Glycol (Miralax) 17 gm DAILYPRN PRN ORAL Constipation 04/06/19 07:15 05/06/19 07:14 Sodium Chloride 1,000 ml @ 75 mls/hr [id number] IV 04/06/19 08:00 05/06/19 07:59 04/07/19 10:59 Sucralfate (Carafate) 1 gm Q6HR GT 04/06/19 12:00 05/06/19 11:59 04/07/19 05:42 Vancomycin HCl (Vanco rx to dose) 1 ea DAILY PRN MISC PER RX PROTOCOL 04/06/19 07:30 05/06/19 07:29 Vancomycin HCl 750 mg/Sodium Chloride 275 ml @ 183.333 mls/hr Q24H IVPB 04/07/19 09:00 04/12/19 08:59 04/07/19 09:11 Assessment/Plan Assessment/Plan: Abx: IV Vancomycin 04/06- Ertapenem x1 04/05 Assessment: Probable Sepsis vs SIRS (due to GIB) -Bcx p -04/05 CXR: No acute findings. Probable UTI -u/a wbc tnct, nit neg, leuk +3; ucx 40-50k GNB hx of infected obstuctive ureterolithiasis/w abscess s/p L NT placed 12/2018 s/p 1 month Ertapenem -sp L NT exchange 02/2019 hx of UTI - Urine Cx 02/15/19 - Proteus - Sen to Sherly and amik - ESBL UTI 07/2018 Hx Constipation Chronic respiratory failure trach/vent dependant Hypothyroidism GERD Hypertension Hx C. diff Dysphagia s/p G-tube Anemia. CVA/TIA w/ hemiplegia functional quadriplegia chronic encephalopathy CAD CHF Asthma Dm2 GIB s/p multiple EGDs in the past hx of diffuse ulcerative esophagitis, peptic esophageal stricture (EGD Jul 2018 ) schizoaffective disease [facility] resident multiple admissions hx of VRE colonization malnutrition Plan: -D/c empiric IV Vancomycin #2 -Continue Ertapenem #2 pending Ucx - 02/22/19 SP meropenem #7 and vancomcyin #7 - 02/19/19 SP vancomcyin #4 - S/p Melita.Erta x 1 month - 12/23/18 SP Zosyn #11, inhaled colistin #8 for MDR P.a.for sputum organism and Fluconazole #7 for Yeast it the urine - 12/12 S/P Vancomycin and Cefepime #5 -12/08 SP Levaquin x1 -11/06 SP Amikacin #6 -11/01 SP Meropenem #4 -10/29 SP IV Vanco #2, Cefepime #2 and Tigecycline #1 -10/28 SP LEavquin x1 -10/09 SP Ertapenem #5 - 10/04 SP Meropenem #2 -10/03/18 SP IV Vancomycin #2 and Cefepime #2 -08/09/18 SP Bactrim #7 -08/03 SP Vancomycin and Cefepime #3 -08/01/18 SP Ceftriaxone x1 -f/u cx -Monitor CBC/CMP, temperatures -Peg/trach care -aspiration precautions -Bcx x2 -GI f.u Thank you for this consultation. Will continue to follow along with you. Discussed with Lisy Lindo M.D. Apr 07, 2019 12:32
[2019-04-07] MEDS ORDERED: Silver Nitrate Stick TOPIC ONE (12:45)
[2019-04-07] MEDS ORDERED: Ertapenem 1 GM in NS 55 ML IVPB SCH (14:00)
--- NOTE | 2019-04-07 15:50 | NUR ---
NURSE NOTES:WOUND CARE NOTES:Pt presented on admission with contractures and pressure injuries. Skin assessed under trach collar and no evidence of skin breakdown noted. Small puncture -like wound noted to L flank .Small amt sanguineous exudate noted. Periwound without erythema noted. Skin erosion noted around stoma of GT . Site is erythematous and denuded. Peristomal erythema with with satellite lesions noted. Sacrum is pink and blanchable. F/c in-situ and laceration noted to meatus and is malodorous.Scrotum is pink and blanchable. Malleoli and R heel are pink and blanchable. Non-blanchable erythema without induration or fluctuance medial/lateral L foot. (L)1cm x (W)1cm. Non-blanchable erythema without induration or fluctuance .distal/lateral L foot. (L)2cm x (W)1cm . Non-blanchable erythema without induration/fluctuance Lateral L malleolus.(L)1.5cm x (W)1cm. Tx.Plan: Apply Moisture Barrier paste to sacrum,R and L trochanters . Cover each site with Optifoam drsgs. Change every 3 days and prn. Apply Cavilon Skin Barrier to both heels,malleoli and lateral aspects of both feet. Cover each site with Optifoam drsgs. Change every 7 days and prn. Apply Triad Paste to bilat groin and scrotal areas with each incontinence care. Silver Nitrite sticks x1 application applied to peristomal GT as ordered. (Done) Wash GT site daily with soap and water. Pat dry Apply Zinc Oxide Paste to abdominal areas around GT daily. Place 4x4 drain sponge around GT .(Please Do Not Tape Gauze.) Reposition at least every 2hours or as tolerated. Place pillow between knees. Off-Load heels with pillow.
[2019-04-07 16:00] VITALS: BP 100/54
--- NOTE | 2019-04-07 19:15 | NUR ---
NURSE NOTES: Received patient from ODILAI Domingo. patient is observed resting in bed, nonverbal; no s/sx of pain noted at this time. vent to trach settings are as follows: Portex: 8, TV: 600, AC: 14, FiO2: 35%, PEEP: 5. no s/sx of respiratory distress noted at this time. IV site is patent and intact, running fluids at prescribed rate. G-tube site is patent and clamped. F/C is patent and intact, draining well. bed in lowest position and locked, siderails up X3, call light within reach. will continue to monitor.
--- NOTE | 2019-04-07 19:30 | NUR ---
HAND-OFF: Report given to Hanh HARTLEY. Pt. remain stable.
[2019-04-07 20:00] VITALS: BP 102/59
[2019-04-08] VITALS: BP 137/82
[2019-04-08 04:00] VITALS: BP 120/79
[2019-04-08 04:33] LABS: BASOPHILS % (AUTO) 0.9 % (0.0-2.0); EOSINOPHILS % (AUTO) 3.8 % (0.0-3.0); HEMATOCRIT 26.2 % (42.0-52.0); HEMOGLOBIN 8.4 G/DL (14.2-18.0); LYMPHOCYTES % (AUTO) 17.1 % (20.0-45.0); MEAN CORPUSCULAR VOLUME 89 FL (80-99); MONOCYTES % (AUTO) 8.9 % (1.0-10.0); NEUTROPHILS % (AUTO) 69.3 % (45.0-75.0); PLATELET COUNT 309 K/UL (150-450); RED BLOOD COUNT 2.94 M/UL (4.70-6.10); RED CELL DISTRIBUTION WIDTH 15.1 % (11.6-14.8); WHITE BLOOD COUNT 10.8 K/UL (4.8-10.8)
[2019-04-08 05:07] LABS: ANION GAP 13 mmol/L (5-15); BLOOD UREA NITROGEN 21 mg/dL (7-18); CALCIUM 8.9 MG/DL (8.5-10.1); CARBON DIOXIDE 19 MMOL/L (21-32); CHLORIDE 104 MMOL/L (98-107); CREATININE 1.1 MG/DL (0.55-1.30); FERRITIN 495 NG/ML (8-388); POTASSIUM 4.1 MMOL/L (3.5-5.1); SODIUM 136 MMOL/L (136-145)
[2019-04-08] MEDS: Sucralfate 1gm tab GT SCH ×3 (05:45→18:18)
--- NOTE | 2019-04-08 07:10 | NUR ---
RESPIRATORY NOTE: received pt, trached with portex 8, secured via trach tie/guard. no redness or skin tears around stoma. pt not in resp distress on current vent settings. ambu bag and back up trach at bedside. alarms are set and audible. will cont to monitor.
--- NOTE | 2019-04-08 07:15 | NUR ---
HAND-OFF: Report given to ODILIA Domingo. patient is in stable condition.
--- NOTE | 2019-04-08 07:16 | NUR ---
NURSE NOTES: Received bedside report from Hanh HARTLEY. Pt. in bed, asleep but arousable. Non-verbal. No sign of distress. On mech. vent. with setting AC14/VT600/FiO2 of 35%/P5. No grimacing noted. IV at right EJ in placed patent/intact running NS at 75cc/hr. Tolerating well. Bed in low position, locked. Call light within reach. Will cont. to monitor.
[2019-04-08 08:00] VITALS: BP 115/57
[2019-04-08] MEDS ORDERED: Ascorbic Acid 500mg tab ORAL SCH (09:00)
--- NOTE | 2019-04-08 09:46 | NUR ---
NURSE NOTES: Informed Dr. Nath regarding pt. hgb 8.4 told RN no new order.
--- NOTE | 2019-04-08 10:03 | Pulmonolgy Critical Care Note ---
Critical Care - Asmt/Plan Problems: (1) Septic shock (2) Respiratory failure, [id number] (3) Acute encephalopathy (4) UTI (urinary tract infection) (5) Alzheimer's dementia (6) Severe erosive esophagitis (7) Feeding by G-tube (8) Severe protein-calorie malnutrition Respiratory: monitor respiratory rate, adjust FIO2, CXR Cardiac: continue pressors, continue to monitor HR/BP Renal: F/U I&O, check electrolytes Infectious Disease: continue antibiotics Gastrointestinal: hold feedings Endocrine: check TSH, continue sliding scale insulin Hematologic: monitor H/H, transfuse if hgb<8.5 Neurologic: PRN Ativan, PRN Morphine, keep patient comfortable Prophylaxis: Protonix Time Spent (Minutes): 30 Notes Reviewed: client insights consultant, 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 with: nurses, consultants, foster care case managermanager lpn - Objective Last 24 Hour Vital Signs Date Time Temp Pulse Resp B/P (MAP) Pulse Ox O2 Delivery O2 Flow Rate FiO2 04/08/19 08:35 66 14 35 04/08/19 08:00 98.1 71 18 115/57 (76) 100 04/08/19 08:00 76 04/08/19 08:00 Mechanical Ventilator 04/08/19 08:00 35 04/08/19 07:08 67 14 35 04/08/19 05:00 81 16 35 04/08/19 04:00 Mechanical Ventilator 04/08/19 04:00 35 04/08/19 04:00 97.7 76 20 120/79 (93) 95 04/08/19 03:24 79 04/08/19 02:33 86 17 35 04/08/19 00:50 81 16 35 04/08/19 00:00 35 04/08/19 00:00 79 04/08/19 00:00 Mechanical Ventilator 04/08/19 00:00 98.6 76 16 137/82 (100) 100 04/07/19 22:42 82 16 35 04/07/19 20:40 89 17 35 04/07/19 20:00 35 04/07/19 20:00 Mechanical Ventilator 04/07/19 20:00 95 04/07/19 20:00 97.9 95 20 102/59 (73) 98 04/07/19 18:45 82 18 35 04/07/19 17:07 78 17 35 04/07/19 16:00 Mechanical Ventilator 04/07/19 16:00 35 04/07/19 16:00 35 04/07/19 16:00 98.0 82 18 100/54 (69) 100 04/07/19 15:44 79 04/07/19 15:23 84 17 35 04/07/19 13:29 78 16 35 04/07/19 12:00 Mechanical Ventilator 04/07/19 12:00 35 04/07/19 12:00 99.0 77 17 136/70 (92) 100 04/07/19 11:43 78 04/07/19 11:06 82 14 35 Status: awake Condition: critical Lungs: clear Heart: HR/BP stable, HR/BP unstable Abdomen: soft, feeding tube Extremities: edema Decubiti: location Micro: Microbiology Date/Time Source Procedure Growth Status 04/05/19 19:39 Blood Blood Culture - Preliminary NO GROWTH AFTER 48 HOURS Resulted 04/05/19 19:20 Blood Blood Culture - Preliminary NO GROWTH AFTER 48 HOURS Resulted 04/07/19 03:30 Sputum Gram Stain - Final Resulted 04/07/19 03:30 Sputum Culture - Preliminary Gram Negative Alex Resulted 04/05/19 20:00 Urine,Clean Catch Urine Culture - Final Providencia Stuartii Complete 04/05/19 23:00 Rectum VRE Culture - Final Enterococcus Faecalis - Vre Complete Critical Care - Subjective ROS Limited/Unobtainable: Yes EKG Rhythm: Sinus Rhythm FI02: 35 Vent Support Breath Rate: 14 Vent Support Mode: AC Vent Tidal Volume: 600 Sputum Amount: Small PEEP: 5.0 PIP: 23 I&O: Intake and Output 04/07/19 04/08/19 19:00 07:00 Intake Total 930 ml 885 ml Output Total 375 ml 300 ml Balance 555 ml 585 ml Intake Free Water 30 ml 60 ml IV Total 900 ml 825 ml Output Urine Total 375 ml 300 ml Labs: Laboratory Tests Test 04/08/19 03:20 White Blood Count 10.8 K/UL (4.8-10.8) Red Blood Count 2.94 M/UL (4.70-6.10) L Hemoglobin 8.4 G/DL (14.2-18.0) L Hematocrit 26.2 % (42.0-52.0) L Mean Corpuscular Volume 89 FL (80-99) Mean Corpuscular Hemoglobin 28.4 PG (27.0-31.0) Mean Corpuscular Hemoglobin Concent 31.9 G/DL (32.0-36.0) L Red Cell Distribution Width 15.1 % (11.6-14.8) H Platelet Count 309 K/UL (150-450) Mean Platelet Volume 6.6 FL (6.5-10.1) Neutrophils (%) (Auto) 69.3 % (45.0-75.0) Lymphocytes (%) (Auto) 17.1 % (20.0-45.0) L Monocytes (%) (Auto) 8.9 % (1.0-10.0) Eosinophils (%) (Auto) 3.8 % (0.0-3.0) H Basophils (%) (Auto) 0.9 % (0.0-2.0) Sodium Level 136 MMOL/L (136-145) Potassium Level 4.1 MMOL/L (3.5-5.1) Chloride Level 104 MMOL/L (98-107) Carbon Dioxide Level 19 MMOL/L (21-32) L Anion Gap 13 mmol/L (5-15) Blood Urea Nitrogen 21 mg/dL (7-18) H Creatinine 1.1 MG/DL (0.55-1.30) Estimat Glomerular Filtration Rate > 60 mL/min (>60) Glucose Level 80 MG/DL (74-106) Calcium Level 8.9 MG/DL (8.5-10.1) Magnesium Level 2.4 MG/DL (1.8-2.4) Ferritin 495 NG/ML (8-388) H Huma Keating MD Apr 08, 2019 10:03
--- NOTE | 2019-04-08 10:03 | Hematology/Onc Progress Note ---
Assessment/Plan Assessment/Plan Assessment and Recs; # Upper GI bleed with nausea/vomiting and hemoptysis, labs have been reviewed --> r/o active bleed --> started on protonix --> check h/h q12h or more frequent as needed --> Dr. Wilson has been consulted --> zofran prn basis --> hgb trend 11-->8.6-->8.4 # Leukocytosi with UTI (urinary tract infection) MDR --> trend 24k-->11k-->10.8 --> started on iv antibiotics (vanc) --> as per id recs # Azotemia with dehydration --> per renal # Hypercalcemia -- on ivf --> per renal and pth (pending) # Trach/vent --> as per pulm/cc management Appreciate retail consultant recs Subjective Constitutional: Denies: no symptoms, chills, fever, malaise, weakness, other HEENT: Denies: no symptoms, eye pain, blurred vision, tearing, double vision, ear pain, ear discharge, nose pain, nose congestion, throat pain, throat swelling, mouth pain, mouth swelling, other Cardiovascular: Denies: no symptoms, chest pain, edema, irregular heart rate, lightheadedness, palpitations, syncope, other Respiratory: Denies: no symptoms, cough, shortness of breath, SOB with excertion, SOB at rest, sputum, wheezing, other Gastrointestinal/Abdominal: Denies: no symptoms, abdomen distended, abdominal pain, black stools, tarry stools, blood in stool, constipated, diarrhea, difficulty swallowing, nausea, poor appetite, poor fluid intake, rectal bleeding , vomiting, other Genitourinary: Denies: no symptoms, burning, discharge, frequency, flank pain, hematuria, incontinence, pain, urgency, other Neurologic/Psychiatric: Denies: no symptoms, anxiety, depressed, emotional problems, headache, numbness, paresthesia, pre-existing deficit, seizure, tingling, tremors, weakness, other Endocrine: Denies: no symptoms, excessive sweating, flushing, intolerance to cold, intolerance to heat, increased hunger, increased thirst, increased urine, unexplained weight gain, unexplained weight loss, other Hematologic/Lymphatic: Denies: no symptoms, anemia, easy bleeding, easy bruising, adenopathy, other Allergies: Coded Allergies: NO KNOWN DRUG ALLERGIES (Verified Allergy, Unknown, 09/11/16) Subjective 04/07: nonverbal, labs reviewed, hgb is lower, no f/c, on vent 04/08: is on ertapenem, no f/c no chills noted, hgb lower 8.4 Objective Objective Current Medications Medications (Trade) Dose Ordered Sig/Wanda Route PRN Reason Start Time Stop Time Status Last Admin Dose Admin Acetaminophen (Tylenol) 650 mg Q4H PRN ORAL FEVER (temp>100.5F) 04/06/19 07:15 05/06/19 07:14 Albuterol/ Ipratropium (Albuterol/ Ipratropium) 3 ml Q4H PRN HHN Shortness of Breath 04/06/19 07:15 04/11/19 07:14 Ascorbic Acid (Vitamin C) 250 mg DAILY ORAL 04/08/19 09:00 05/08/19 08:59 04/08/19 09:31 Dextrose (Dextrose 50%) 25 ml Q30M PRN IV Hypoglycemia 04/06/19 07:30 05/06/19 07:27 Dextrose (Dextrose 50%) 50 ml Q30M PRN IV hypoglycemia 04/06/19 07:30 05/06/19 07:29 Ertapenem 1 gm/ Sodium Chloride 55 ml @ 110 mls/hr Q24H IVPB 04/07/19 14:00 04/12/19 13:59 04/07/19 15:38 Lansoprazole (Prevacid) 30 mg Q12HR GT 04/06/19 09:00 05/06/19 08:59 04/08/19 09:31 Levothyroxine Sodium (Synthroid) 75 mcg DAILY GT 04/06/19 09:00 05/06/19 08:59 04/08/19 09:30 Lorazepam (Ativan 2mg/ml 1ml) 2 mg Q2H PRN IV For Anxiety 04/06/19 07:15 04/13/19 07:14 Morphine Sulfate (Morphine Sulfate) 4 mg Q4H PRN IVP Severe Pain (Pain Scale 7-10) 04/06/19 07:15 04/13/19 07:14 Ondansetron HCl (Zofran) 4 mg Q6H PRN IVP Nausea & Vomiting 04/06/19 07:15 05/06/19 07:14 Polyethylene Glycol (Miralax) 17 gm DAILYPRN PRN ORAL Constipation 04/06/19 07:15 05/06/19 07:14 Sodium Chloride 1,000 ml @ 75 mls/hr [id number] IV 04/06/19 08:00 05/06/19 07:59 04/08/19 00:15 Sucralfate (Carafate) 1 gm Q6HR GT 04/06/19 12:00 05/06/19 11:59 04/08/19 05:45 Last 24 Hour Vital Signs Date Time Temp Pulse Resp B/P (MAP) Pulse Ox O2 Delivery O2 Flow Rate FiO2 04/08/19 08:35 66 14 35 04/08/19 08:00 98.1 71 18 115/57 (76) 100 04/08/19 08:00 76 04/08/19 08:00 Mechanical Ventilator 04/08/19 08:00 35 04/08/19 07:08 67 14 35 04/08/19 05:00 81 16 35 04/08/19 04:00 Mechanical Ventilator 04/08/19 04:00 35 04/08/19 04:00 97.7 76 20 120/79 (93) 95 04/08/19 03:24 79 04/08/19 02:33 86 17 35 04/08/19 00:50 81 16 35 04/08/19 00:00 35 04/08/19 00:00 79 04/08/19 00:00 Mechanical Ventilator 04/08/19 00:00 98.6 76 16 137/82 (100) 100 04/07/19 22:42 82 16 35 04/07/19 20:40 89 17 35 04/07/19 20:00 35 04/07/19 20:00 Mechanical Ventilator 04/07/19 20:00 95 04/07/19 20:00 97.9 95 20 102/59 (73) 98 04/07/19 18:45 82 18 35 04/07/19 17:07 78 17 35 04/07/19 16:00 Mechanical Ventilator 04/07/19 16:00 35 04/07/19 16:00 35 04/07/19 16:00 98.0 82 18 100/54 (69) 100 04/07/19 15:44 79 04/07/19 15:23 84 17 35 04/07/19 13:29 78 16 35 04/07/19 12:00 Mechanical Ventilator 04/07/19 12:00 35 04/07/19 12:00 99.0 77 17 136/70 (92) 100 04/07/19 11:43 78 04/07/19 11:06 82 14 35 04/07/19 09:00 81 15 35 04/07/19 08:00 Mechanical Ventilator 04/07/19 08:00 98.7 82 16 106/61 (76) 100 04/07/19 08:00 35 04/07/19 07:43 79 04/07/19 07:34 79 15 35 04/07/19 04:53 77 15 35 04/07/19 04:00 Mechanical Ventilator 04/07/19 04:00 35 04/07/19 04:00 97.9 79 24 118/56 (76) 99 04/07/19 03:34 91 04/07/19 03:24 80 15 35 04/07/19 01:05 81 14 35 04/07/19 00:00 35 04/07/19 00:00 98.2 78 24 133/77 (95) 100 04/07/19 00:00 Mechanical Ventilator 04/06/19 23:33 73 14 35 04/06/19 23:24 82 04/06/19 21:00 75 14 35 04/06/19 20:00 35 04/06/19 20:00 Mechanical Ventilator 04/06/19 20:00 98.2 82 24 113/63 (80) 100 04/06/19 19:36 83 19 35 04/06/19 19:00 74 04/06/19 17:38 82 15 35 04/06/19 16:00 35 04/06/19 16:00 Mechanical Ventilator 04/06/19 15:16 88 23 35 04/06/19 15:15 89 04/06/19 13:22 86 16 35 04/06/19 12:00 90 04/06/19 12:00 98.4 87 21 148/71 (96) 100 04/06/19 12:00 35 04/06/19 12:00 Mechanical Ventilator 04/06/19 11:33 83 15 35 Intake and Output 04/07/19 04/08/19 19:00 07:00 Intake Total 930 ml 885 ml Output Total 375 ml 300 ml Balance 555 ml 585 ml Intake Free Water 30 ml 60 ml IV Total 900 ml 825 ml Output Urine Total 375 ml 300 ml Labs Test 04/05/19 19:39 04/05/19 20:00 04/06/19 07:10 04/07/19 03:05 White Blood Count 24.0 K/UL (4.8-10.8) 10.9 K/UL (4.8-10.8) Red Blood Count 3.91 M/UL (4.70-6.10) 3.04 M/UL (4.70-6.10) Hemoglobin 11.0 G/DL (14.2-18.0) 8.6 G/DL (14.2-18.0) Hematocrit 34.4 % (42.0-52.0) 27.1 % (42.0-52.0) Mean Corpuscular Volume 88 FL (80-99) 89 FL (80-99) Mean Corpuscular Hemoglobin 28.2 PG (27.0-31.0) 28.4 PG (27.0-31.0) Mean Corpuscular Hemoglobin Concent 32.0 G/DL (32.0-36.0) 31.8 G/DL (32.0-36.0) Red Cell Distribution Width 14.9 % (11.6-14.8) 15.0 % (11.6-14.8) Platelet Count 461 K/UL (150-450) 326 K/UL (150-450) Mean Platelet Volume 7.0 FL (6.5-10.1) 7.1 FL (6.5-10.1) Neutrophils (%) (Auto) % (45.0-75.0) 65.8 % (45.0-75.0) Lymphocytes (%) (Auto) % (20.0-45.0) 19.5 % (20.0-45.0) Monocytes (%) (Auto) % (1.0-10.0) 9.9 % (1.0-10.0) Eosinophils (%) (Auto) % (0.0-3.0) 4.1 % (0.0-3.0) Basophils (%) (Auto) % (0.0-2.0) 0.6 % (0.0-2.0) Differential Total Cells Counted 100 Neutrophils % (Manual) 87 % (45-75) Lymphocytes % (Manual) 6 % (20-45) Monocytes % (Manual) 5 % (1-10) Eosinophils % (Manual) 1 % (0-3) Basophils % (Manual) 0 % (0-2) Band Neutrophils 1 % (0-8) Platelet Estimate Increased Platelet Morphology Normal Hypochromasia 1+ Prothrombin Time 10.7 SEC (9.30-11.50) Prothromb Time International Ratio 1.0 (0.9-1.1) Activated Partial Thromboplast Time 29 SEC (23-33) Sodium Level 135 MMOL/L (136-145) 135 MMOL/L (136-145) Potassium Level 3.4 MMOL/L (3.5-5.1) 3.9 MMOL/L (3.5-5.1) Chloride Level 99 MMOL/L (98-107) 104 MMOL/L (98-107) Carbon Dioxide Level 23 MMOL/L (21-32) 22 MMOL/L (21-32) Anion Gap 13 mmol/L (5-15) 9 mmol/L (5-15) Blood Urea Nitrogen 37 mg/dL (7-18) 28 mg/dL (7-18) Creatinine 1.2 MG/DL (0.55-1.30) 1.2 MG/DL (0.55-1.30) Estimat Glomerular Filtration Rate 59.9 mL/min (>60) 59.9 mL/min (>60) Glucose Level 136 MG/DL (74-106) 91 MG/DL (74-106) Lactic Acid Level 1.60 mmol/L (0.4-2.0) Calcium Level 10.4 MG/DL (8.5-10.1) 9.3 MG/DL (8.5-10.1) Total Bilirubin 0.3 MG/DL (0.2-1.0) Aspartate Amino Transf (AST/SGOT) 23 U/L (15-37) Alanine Aminotransferase (ALT/SGPT) 30 U/L (12-78) Alkaline Phosphatase 192 U/L (46-116) Total Protein 8.7 G/DL (6.4-8.2) Albumin 3.6 G/DL (3.4-5.0) 2.8 G/DL (3.4-5.0) Globulin 5.1 g/dL Albumin/Globulin Ratio 0.7 (1.0-2.7) Lipase 184 U/L (73-393) Urine Color Yellow Urine Appearance Slightly cloudy Urine pH 8 (4.5-8.0) Urine Specific [place] 1.015 (1.005-1.035) Urine Protein 2+ (NEGATIVE) Urine Glucose (UA) Negative (NEGATIVE) Urine Ketones Negative (NEGATIVE) Urine Blood 3+ (NEGATIVE) Urine Nitrite Negative (NEGATIVE) Urine Bilirubin Negative (NEGATIVE) Urine Urobilinogen Normal MG/DL (0.0-1.0) Urine Leukocyte Esterase 3+ (NEGATIVE) Urine RBC 5-10 /HPF (0 - 0) Urine WBC Tntc /HPF (0 - 0) Urine Squamous Epithelial Cells Occasional /LPF Urine Bacteria Moderate /HPF (NONE) Iron Level 24 ug/dL (50-175) Total Iron Binding Capacity 214 ug/dL (250-450) Percent Iron Saturation 11 % (15-50) Unsaturated Iron Binding 190 ug/dL (112-346) Phosphorus Level 3.6 MG/DL (2.5-4.9) Test 04/08/19 03:20 White Blood Count 10.8 K/UL (4.8-10.8) Red Blood Count 2.94 M/UL (4.70-6.10) Hemoglobin 8.4 G/DL (14.2-18.0) Hematocrit 26.2 % (42.0-52.0) Mean Corpuscular Volume 89 FL (80-99) Mean Corpuscular Hemoglobin 28.4 PG (27.0-31.0) Mean Corpuscular Hemoglobin Concent 31.9 G/DL (32.0-36.0) Red Cell Distribution Width 15.1 % (11.6-14.8) Platelet Count 309 K/UL (150-450) Mean Platelet Volume 6.6 FL (6.5-10.1) Neutrophils (%) (Auto) 69.3 % (45.0-75.0) Lymphocytes (%) (Auto) 17.1 % (20.0-45.0) Monocytes (%) (Auto) 8.9 % (1.0-10.0) Eosinophils (%) (Auto) 3.8 % (0.0-3.0) Basophils (%) (Auto) 0.9 % (0.0-2.0) Sodium Level 136 MMOL/L (136-145) Potassium Level 4.1 MMOL/L (3.5-5.1) Chloride Level 104 MMOL/L (98-107) Carbon Dioxide Level 19 MMOL/L (21-32) Anion Gap 13 mmol/L (5-15) Blood Urea Nitrogen 21 mg/dL (7-18) Creatinine 1.1 MG/DL (0.55-1.30) Estimat Glomerular Filtration Rate > 60 mL/min (>60) Glucose Level 80 MG/DL (74-106) Calcium Level 8.9 MG/DL (8.5-10.1) Magnesium Level 2.4 MG/DL (1.8-2.4) Ferritin 495 NG/ML (8-388) Height (Feet): 5 Height (Inches): 6.00 Weight (Pounds): 127 Objective Physical Exam Vitals: reviewed Gen: other - nonverbal Neck: tracheotomy/vent Respiratory: chest non-tender, lungs clear, ++ vent Cv: regular rate, rhythm, no edema Gi: normal bowel sounds, non tender, soft, non-distended, no guarding, no rebound Neurologic: other - nonverbal Psychiatric: other - nonverbal Skin: other - see nursing skin notes Lymphatic: normal inspection Nikos Nath MD Apr 08, 2019 10:03
--- NOTE | 2019-04-08 10:09 | GI Progress Note ---
Assessment/Plan Problems: (1) GT SITE LEAKING (2) Upper GI bleed ICD Codes: K92.2 - Upper gastrointestinal hemorrhage SNOMED: 48659580 (3) Severe protein-calorie malnutrition ICD Codes: E43 - Unspecified severe protein-calorie malnutrition SNOMED: 499707702 (4) Malfunction of gastrostomy tube ICD Codes: K94.23 - Gastrostomy malfunction SNOMED: 919202316 (5) Severe erosive esophagitis Status: unchanged Status Narrative Discussed with Dr. Wilson. Assessment/Plan stable H&H EGD only if emergent. Wound care consult. Reinforced the G-tube site dressings. GT retention ring readjusted, may need GT change if site continues to leak. Monitor H&H, as needed transfusions Prevacid twice daily Carafate IV PO hydration follow labs The patient was seen and examined at bedside and all new and available data was reviewed in the patients chart. I agree with the above findings, impression and plan. (Patient seen earlier today. Signature stamp does not reflect patient encounter time.). - Vitaliy Wilson MD Subjective Subjective limited Objective Last 24 Hour Vital Signs Date Time Temp Pulse Resp B/P (MAP) Pulse Ox O2 Delivery O2 Flow Rate FiO2 04/08/19 08:35 66 14 35 04/08/19 08:00 98.1 71 18 115/57 (76) 100 04/08/19 08:00 76 04/08/19 08:00 Mechanical Ventilator 04/08/19 08:00 35 04/08/19 07:08 67 14 35 04/08/19 05:00 81 16 35 04/08/19 04:00 Mechanical Ventilator 04/08/19 04:00 35 04/08/19 04:00 97.7 76 20 120/79 (93) 95 04/08/19 03:24 79 04/08/19 02:33 86 17 35 04/08/19 00:50 81 16 35 04/08/19 00:00 35 04/08/19 00:00 79 04/08/19 00:00 Mechanical Ventilator 04/08/19 00:00 98.6 76 16 137/82 (100) 100 04/07/19 22:42 82 16 35 04/07/19 20:40 89 17 35 04/07/19 20:00 35 7/29/19 20:00 Mechanical Ventilator 04/07/19 20:00 95 04/07/19 20:00 97.9 95 20 102/59 (73) 98 04/07/19 18:45 82 18 35 04/07/19 17:07 78 17 35 04/07/19 16:00 Mechanical Ventilator 04/07/19 16:00 35 04/07/19 16:00 35 04/07/19 16:00 98.0 82 18 100/54 (69) 100 04/07/19 15:44 79 04/07/19 15:23 84 17 35 04/07/19 13:29 78 16 35 04/07/19 12:00 Mechanical Ventilator 04/07/19 12:00 35 04/07/19 12:00 99.0 77 17 136/70 (92) 100 04/07/19 11:43 78 04/07/19 11:06 82 14 35 Intake and Output 04/07/19 04/08/19 19:00 07:00 Intake Total 930 ml 885 ml Output Total 375 ml 300 ml Balance 555 ml 585 ml Intake Free Water 30 ml 60 ml IV Total 900 ml 825 ml Output Urine Total 375 ml 300 ml Laboratory Tests Test 04/08/19 03:20 White Blood Count 10.8 K/UL (4.8-10.8) Red Blood Count 2.94 M/UL (4.70-6.10) L Hemoglobin 8.4 G/DL (14.2-18.0) L Hematocrit 26.2 % (42.0-52.0) L Mean Corpuscular Volume 89 FL (80-99) Mean Corpuscular Hemoglobin 28.4 PG (27.0-31.0) Mean Corpuscular Hemoglobin Concent 31.9 G/DL (32.0-36.0) L Red Cell Distribution Width 15.1 % (11.6-14.8) H Platelet Count 309 K/UL (150-450) Mean Platelet Volume 6.6 FL (6.5-10.1) Neutrophils (%) (Auto) 69.3 % (45.0-75.0) Lymphocytes (%) (Auto) 17.1 % (20.0-45.0) L Monocytes (%) (Auto) 8.9 % (1.0-10.0) Eosinophils (%) (Auto) 3.8 % (0.0-3.0) H Basophils (%) (Auto) 0.9 % (0.0-2.0) Sodium Level 136 MMOL/L (136-145) Potassium Level 4.1 MMOL/L (3.5-5.1) Chloride Level 104 MMOL/L (98-107) Carbon Dioxide Level 19 MMOL/L (21-32) L Anion Gap 13 mmol/L (5-15) Blood Urea Nitrogen 21 mg/dL (7-18) H Creatinine 1.1 MG/DL (0.55-1.30) Estimat Glomerular Filtration Rate > 60 mL/min (>60) Glucose Level 80 MG/DL (74-106) Calcium Level 8.9 MG/DL (8.5-10.1) Magnesium Level 2.4 MG/DL (1.8-2.4) Ferritin 495 NG/ML (8-388) H Height (Feet): 5 Height (Inches): 6.00 Weight (Pounds): 127 General Appearance: no apparent distress Cardiovascular: normal rate Respiratory/Chest: no respiratory distress Abdominal Exam: normal bowel sounds, non tender, soft, GT site Extremities: non-tender Emanuel Quesada NP Apr 08, 2019 10:09
[2019-04-08 12:00] VITALS: BP 111/73
[2019-04-08] MEDS ORDERED: Zinc Oxide Oint 2oz TOPIC PRN (12:00)
--- NOTE | 2019-04-08 12:02 | NUR ---
PRESS OFFBEARERRECEIVABLE EXECUTIVE SI: RESP FAILURE TRACH/VENT DEPENDENT,GI BLEED T. 98.1 HR 71 RR 18 B/P 115/57 AC 14 TV 600 FIO2 35% PEEP 5 H/H 8.4/26.2 FERRITIN 495 IS; ERTAPENEM IV IVF NS @ 75ML/HR PREVACID GT STEP DOWN STATUS
--- NOTE | 2019-04-08 12:17 | Surgery Progress Note ---
Surgery Progress Note Subjective Additional Comments Patient seen and examined bedside. No acute events. Leukocytosis resolved. Labs stable. Overall improved. Silver nitrate applied around wound Objective Last 24 Hour Vital Signs Date Time Temp Pulse Resp B/P (MAP) Pulse Ox O2 Delivery O2 Flow Rate FiO2 04/08/19 10:47 82 15 35 04/08/19 08:35 66 14 35 04/08/19 08:00 98.1 71 18 115/57 (76) 100 04/08/19 08:00 76 04/08/19 08:00 Mechanical Ventilator 04/08/19 08:00 35 04/08/19 07:08 67 14 35 04/08/19 05:00 81 16 35 04/08/19 04:00 Mechanical Ventilator 04/08/19 04:00 35 04/08/19 04:00 97.7 76 20 120/79 (93) 95 04/08/19 03:24 79 04/08/19 02:33 86 17 35 04/08/19 00:50 81 16 35 04/08/19 00:00 35 04/08/19 00:00 79 04/08/19 00:00 Mechanical Ventilator 04/08/19 00:00 98.6 76 16 137/82 (100) 100 04/07/19 22:42 82 16 35 04/07/19 20:40 89 17 35 04/07/19 20:00 35 04/07/19 20:00 Mechanical Ventilator 04/07/19 20:00 95 04/07/19 20:00 97.9 95 20 102/59 (73) 98 04/07/19 18:45 82 18 35 04/07/19 17:07 78 17 35 04/07/19 16:00 Mechanical Ventilator 04/07/19 16:00 35 04/07/19 16:00 35 04/07/19 16:00 98.0 82 18 100/54 (69) 100 04/07/19 15:44 79 04/07/19 15:23 84 17 35 04/07/19 13:29 78 16 35 I&O Intake and Output 04/07/19 04/08/19 19:00 07:00 Intake Total 930 ml 885 ml Output Total 375 ml 300 ml Balance 555 ml 585 ml Intake Free Water 30 ml 60 ml IV Total 900 ml 825 ml Output Urine Total 375 ml 300 ml Dressing: saturated Wound: clean Cardiovascular: RSR Respiratory: clear Abdomen: soft, non-tender, present bowel sounds Extremities: no cyanosis, other Laboratory Tests Test 04/08/19 03:20 White Blood Count 10.8 K/UL (4.8-10.8) Red Blood Count 2.94 M/UL (4.70-6.10) L Hemoglobin 8.4 G/DL (14.2-18.0) L Hematocrit 26.2 % (42.0-52.0) L Mean Corpuscular Volume 89 FL (80-99) Mean Corpuscular Hemoglobin 28.4 PG (27.0-31.0) Mean Corpuscular Hemoglobin Concent 31.9 G/DL (32.0-36.0) L Red Cell Distribution Width 15.1 % (11.6-14.8) H Platelet Count 309 K/UL (150-450) Mean Platelet Volume 6.6 FL (6.5-10.1) Neutrophils (%) (Auto) 69.3 % (45.0-75.0) Lymphocytes (%) (Auto) 17.1 % (20.0-45.0) L Monocytes (%) (Auto) 8.9 % (1.0-10.0) Eosinophils (%) (Auto) 3.8 % (0.0-3.0) H Basophils (%) (Auto) 0.9 % (0.0-2.0) Sodium Level 136 MMOL/L (136-145) Potassium Level 4.1 MMOL/L (3.5-5.1) Chloride Level 104 MMOL/L (98-107) Carbon Dioxide Level 19 MMOL/L (21-32) L Anion Gap 13 mmol/L (5-15) Blood Urea Nitrogen 21 mg/dL (7-18) H Creatinine 1.1 MG/DL (0.55-1.30) Estimat Glomerular Filtration Rate > 60 mL/min (>60) Glucose Level 80 MG/DL (74-106) Calcium Level 8.9 MG/DL (8.5-10.1) Magnesium Level 2.4 MG/DL (1.8-2.4) Ferritin 495 NG/ML (8-388) H Plan Problems: (1) Severe protein-calorie malnutrition Assessment & Plan: DAILY ESTIMATED NEEDS: Needs based on Critical care, underweight TF [employer] 57.71kg 30-35 kcals/kg 3358-1051 total kcals 1.25-2 g protein/kg 72-115 g total protein 25-30 mL/kg 8003-1442 total fluid mLs NUTRITION DIAGNOSIS: * Increased kcal/prot intake needs R/T sepsis, underweight status and wound healing as evidenced by pt adm w/ critically elev WBC (24*), febrile, @69% [place] Body Weight, w/ L foot partial thickness wound. * Swallowing difficulty R/T respiratory status as evidenced by pt vent dep via trach, PEG dep. ENTERAL NUTRITION RECOMMENDATIONS: Osmolite 1.5 @ 55ml/hr x 22 hrs + Prosource x1 daily to provide 1210ml, 1815kcal, 76g+11g prot, 922ml free water * As medically able, rec starting Osmolite 1.5 @ 25ml/hr for 6 hrs, advance as tolerated to goal. * Add Prosource x 1 pack daily. * HOLD TF 1h before and 1 after Synthroid administration. * Water flush 150ml q 6 hrs/ HOB over 30 degrees ------- ADDITIONAL RECOMMENDATIONS: * Calibrated bedscale weight for accurate CBW + weekly wt monitoring * Wound care: Add JOYCELYN BID via GT Add Vit C 250mg daily via GT (2) Upper GI bleed Assessment & Plan: Patient presented with coffee ground emesis, anemia, leukocytosis history of erosive esophagitis prior endoscopy notes reviewed GI note noted recommend PPI scope as per GI trend labs (3) Malfunction of gastrostomy tube Assessment & Plan: Patient pulls tube intermittently g tube site wound has improved since last admission site clean and needs to be monitored / maintained no significant leak today will apply silver nitrate as needed to wound to allow for healing - applied zinc oxide around wound prn will follow wound to ensure healing (4) GT SITE LEAKING Quirino Bernard Apr 08, 2019 12:17
--- NOTE | 2019-04-08 12:35 | Infectious Diseases Prog Note ---
Assessment/Plan Assessment/Plan Assessment: Probable Sepsis vs SIRS (due to GIB) =04/07 Sp cx GNR; likely colnizer -Bcx NTD -04/05 CXR: No acute findings. Probable UTI -u/a wbc tnct, nit neg, leuk +3; ucx 40-50k P.stuarti (S Ceftriaxone, Zosyn, Ertapenem) Afebrile Leukocytosis, SP hx of infected obstuctive ureterolithiasis/w abscess s/p L NT placed 12/2018 s/p 1 month Ertapenem -sp L NT exchange 02/2019 hx of UTI - Urine Cx 02/15/19 - Proteus - Sen to Sherly and amik - ESBL UTI 07/2018 Hx Constipation Chronic respiratory failure trach/vent dependant Hypothyroidism GERD Hypertension Hx C. diff Dysphagia s/p G-tube Anemia. CVA/TIA w/ hemiplegia functional quadriplegia chronic encephalopathy CAD CHF Asthma Dm2 GIB s/p multiple EGDs in the past hx of diffuse ulcerative esophagitis, peptic esophageal stricture (EGD Jul 2018 ) schizoaffective disease correction resident multiple admissions hx of VRE colonization malnutrition Plan: -Switch Ertapenem #3/-10 to Cefepime for P. stuarti UTI -04/07 SP IV Vancomycin #2 - 02/22/19 SP meropenem #7 and vancomcyin #7 - 02/19/19 SP vancomcyin #4 - S/p Melita.Erta x 1 month - 12/23/18 SP Zosyn #11, inhaled colistin #8 for MDR P.a.for sputum organism and Fluconazole #7 for Yeast it the urine - 12/12 S/P Vancomycin and Cefepime #5 -12/08 SP Levaquin x1 -11/06 SP Amikacin #6 -11/01 SP Meropenem #4 -10/29 SP IV Vanco #2, Cefepime #2 and Tigecycline #1 -10/28 SP LEavquin x1 -10/09 SP Ertapenem #5 - 10/04 SP Meropenem #2 -10/03/18 SP IV Vancomycin #2 and Cefepime #2 -08/09/ SP Bactrim #7 -08/03 SP Vancomycin and Cefepime #3 -08/01/18 SP Ceftriaxone x1 -f/u cx -Monitor CBC/CMP, temperatures -Peg/trach care -aspiration precautions -f/u Bcx x2 -GI f.u -CXR am Thank you for this consultation. Will continue to follow along with you. Discussed with RN. Subjective Allergies: Coded Allergies: NO KNOWN DRUG ALLERGIES (Verified Allergy, Unknown, 09/11/16) Subjective afebrile no leukocytosis Bcx NTD Objective Vital Signs Last 24 Hour Vital Signs Date Time Temp Pulse Resp B/P (MAP) Pulse Ox O2 Delivery O2 Flow Rate FiO2 04/08/19 10:47 82 15 35 04/08/19 08:35 66 14 35 04/08/19 08:00 98.1 71 18 115/57 (76) 100 04/08/19 08:00 76 04/08/19 08:00 Mechanical Ventilator 04/08/19 08:00 35 04/08/19 07:08 67 14 35 04/08/19 05:00 81 16 35 04/08/19 04:00 Mechanical Ventilator 04/08/19 04:00 35 04/08/19 04:00 97.7 76 20 120/79 (93) 95 04/08/19 03:24 79 04/08/19 02:33 86 17 35 04/08/19 00:50 81 16 35 04/08/19 00:00 35 04/08/19 00:00 79 04/08/19 00:00 Mechanical Ventilator 04/08/19 00:00 98.6 76 16 137/82 (100) 100 04/07/19 22:42 82 16 35 04/07/19 20:40 89 17 35 04/07/19 20:00 35 04/07/19 20:00 Mechanical Ventilator 04/07/19 20:00 95 04/07/19 20:00 97.9 95 20 102/59 (73) 98 04/07/19 18:45 82 18 35 04/07/19 17:07 78 17 35 04/07/19 16:00 Mechanical Ventilator 04/07/19 16:00 35 04/07/19 16:00 35 04/07/19 16:00 98.0 82 18 100/54 (69) 100 04/07/19 15:44 79 04/07/19 15:23 84 17 35 04/07/19 13:29 78 16 35 Height (Feet): 5 Height (Inches): 6.00 Weight (Pounds): 127 Objective General Appearance: cachetic, thin Lines, tubes and drains: peripheral HEENT: normocephalic, atraumatic Respiratory/Chest: chest wall non-tender, lungs clear Breasts: no masses Cardiovascular/Chest: normal peripheral pulses, normal rate Abdomen: normal bowel sounds Extremities: normal range of motion Microbiology Date/Time Source Procedure Growth Status 04/05/19 19:39 Blood Blood Culture - Preliminary NO GROWTH AFTER 48 HOURS Resulted 04/05/19 19:20 Blood Blood Culture - Preliminary NO GROWTH AFTER 48 HOURS Resulted 04/07/19 03:30 Sputum Gram Stain - Final Resulted 04/07/19 03:30 Sputum Culture - Preliminary Gram Negative Alex Resulted 04/05/19 20:00 Urine,Clean Catch Urine Culture - Final Providencia Stuartii Complete 04/05/19 23:00 Rectum VRE Culture - Final Enterococcus Faecalis - Vre Complete Laboratory Tests Test 04/08/19 03:20 White Blood Count 10.8 K/UL (4.8-10.8) Red Blood Count 2.94 M/UL (4.70-6.10) L Hemoglobin 8.4 G/DL (14.2-18.0) L Hematocrit 26.2 % (42.0-52.0) L Mean Corpuscular Volume 89 FL (80-99) Mean Corpuscular Hemoglobin 28.4 PG (27.0-31.0) Mean Corpuscular Hemoglobin Concent 31.9 G/DL (32.0-36.0) L Red Cell Distribution Width 15.1 % (11.6-14.8) H Platelet Count 309 K/UL (150-450) Mean Platelet Volume 6.6 FL (6.5-10.1) Neutrophils (%) (Auto) 69.3 % (45.0-75.0) Lymphocytes (%) (Auto) 17.1 % (20.0-45.0) L Monocytes (%) (Auto) 8.9 % (1.0-10.0) Eosinophils (%) (Auto) 3.8 % (0.0-3.0) H Basophils (%) (Auto) 0.9 % (0.0-2.0) Sodium Level 136 MMOL/L (136-145) Potassium Level 4.1 MMOL/L (3.5-5.1) Chloride Level 104 MMOL/L (98-107) Carbon Dioxide Level 19 MMOL/L (21-32) L Anion Gap 13 mmol/L (5-15) Blood Urea Nitrogen 21 mg/dL (7-18) H Creatinine 1.1 MG/DL (0.55-1.30) Estimat Glomerular Filtration Rate > 60 mL/min (>60) Glucose Level 80 MG/DL (74-106) Calcium Level 8.9 MG/DL (8.5-10.1) Magnesium Level 2.4 MG/DL (1.8-2.4) Ferritin 495 NG/ML (8-388) H Current Medications Medications (Trade) Dose Ordered Sig/Wanda Route PRN Reason Start Time Stop Time Status Last Admin Dose Admin Acetaminophen (Tylenol) 650 mg Q4H PRN ORAL FEVER (temp>100.5F) 04/06/19 07:15 05/06/19 07:14 Albuterol/ Ipratropium (Albuterol/ Ipratropium) 3 ml Q4H PRN HHN Shortness of Breath 04/06/19 07:15 04/11/19 07:14 Ascorbic Acid (Vitamin C) 250 mg DAILY ORAL 04/08/19 09:00 05/08/19 08:59 04/08/19 09:31 Dextrose (Dextrose 50%) 25 ml Q30M PRN IV Hypoglycemia 04/06/19 07:30 05/06/19 07:27 Dextrose (Dextrose 50%) 50 ml Q30M PRN IV hypoglycemia 04/06/19 07:30 05/06/19 07:29 Ertapenem 1 gm/ Sodium Chloride 55 ml @ 110 mls/hr Q24H IVPB 04/07/19 14:00 04/12/19 13:59 04/07/19 15:38 Lansoprazole (Prevacid) 30 mg Q12HR GT 04/06/19 09:00 05/06/19 08:59 04/08/19 09:31 Levothyroxine Sodium (Synthroid) 75 mcg DAILY GT 04/06/19 09:00 05/06/19 08:59 04/08/19 09:30 Lorazepam (Ativan 2mg/ml 1ml) 2 mg Q2H PRN IV For Anxiety 04/06/19 07:15 04/13/19 07:14 Morphine Sulfate (Morphine Sulfate) 4 mg Q4H PRN IVP Severe Pain (Pain Scale 7-10) 04/06/19 07:15 04/13/19 07:14 Ondansetron HCl (Zofran) 4 mg Q6H PRN IVP Nausea & Vomiting 04/06/19 07:15 05/06/19 07:14 Polyethylene Glycol (Miralax) 17 gm DAILYPRN PRN ORAL Constipation 04/06/19 07:15 05/06/19 07:14 Sodium Chloride 1,000 ml @ 75 mls/hr [id number] IV 04/06/19 08:00 05/06/19 07:59 04/08/19 00:15 Sucralfate (Carafate) 1 gm Q6HR GT 04/06/19 12:00 05/06/19 11:59 04/08/19 05:45 Zinc Oxide (Zinc Oxide) 1 applic TIDPRN PRN TOPIC around g tube 04/08/19 12:00 05/08/19 11:59 Lisy Lai M.D. Apr 08, 2019 12:35
--- NOTE | 2019-04-08 13:30 | General Progress Note ---
Assessment/Plan Problem List: (1) Diabetes ICD Codes: E11.9 - Type 2 diabetes mellitus without complications SNOMED: 40648746 (2) HTN (hypertension) ICD Codes: I10 - Essential (primary) hypertension SNOMED: 25810248 (3) CVA (cerebral vascular accident) ICD Codes: I63.9 - Cerebral infarction, unspecified SNOMED: 724590691 (4) Respiratory failure, [id number]-[id number] ICD Codes: J96.20 - Respiratory failure, [id number]-[id number] SNOMED: 79913340 (5) Upper GI bleed ICD Codes: K92.2 - Upper gastrointestinal hemorrhage SNOMED: 57030893 Status: stable, progressing Assessment/Plan: vent abx bp bs control cbc bmp am Subjective Constitutional: Reports: weakness Allergies: Coded Allergies: NO KNOWN DRUG ALLERGIES (Verified Allergy, Unknown, 09/11/16) All Systems: reviewed and negative except above Subjective trach vent altered Objective Last 24 Hour Vital Signs Date Time Temp Pulse Resp B/P (MAP) Pulse Ox O2 Delivery O2 Flow Rate FiO2 04/08/19 12:00 35 04/08/19 12:00 98.1 77 18 111/73 (86) 99 04/08/19 12:00 Mechanical Ventilator 04/08/19 10:47 82 15 35 04/08/19 08:35 66 14 35 04/08/19 08:00 98.1 71 18 115/57 (76) 100 04/08/19 08:00 76 04/08/19 08:00 Mechanical Ventilator 04/08/19 08:00 35 04/08/19 07:08 67 14 35 04/08/19 05:00 81 16 35 04/08/19 04:00 Mechanical Ventilator 04/08/19 04:00 35 04/08/19 04:00 97.7 76 20 120/79 (93) 95 04/08/19 03:24 79 04/08/19 02:33 86 17 35 04/08/19 00:50 81 16 35 04/08/19 00:00 35 04/08/19 00:00 79 04/08/19 00:00 Mechanical Ventilator 04/08/19 00:00 98.6 76 16 137/82 (100) 100 04/07/19 22:42 82 16 35 04/07/19 20:40 89 17 35 04/07/19 20:00 35 04/07/19 20:00 Mechanical Ventilator 04/07/19 20:00 95 04/07/19 20:00 97.9 95 20 102/59 (73) 98 04/07/19 18:45 82 18 35 04/07/19 17:07 78 17 35 04/07/19 16:00 Mechanical Ventilator 04/07/19 16:00 35 04/07/19 16:00 35 04/07/19 16:00 98.0 82 18 100/54 (69) 100 04/07/19 15:44 79 04/07/19 15:23 84 17 35 04/07/19 13:29 78 16 35 Intake and Output 04/07/19 04/08/19 19:00 07:00 Intake Total 930 ml 885 ml Output Total 375 ml 300 ml Balance 555 ml 585 ml Intake Free Water 30 ml 60 ml IV Total 900 ml 825 ml Output Urine Total 375 ml 300 ml Laboratory Tests 04/08/19 03:20: White Blood Count 10.8, Red Blood Count 2.94L, Hemoglobin 8.4L, Hematocrit 26.2L , Mean Corpuscular Volume 89, Mean Corpuscular Hemoglobin 28.4, Mean Corpuscular Hemoglobin Concent 31.9L, Red Cell Distribution Width 15.1H, Platelet Count 309, Mean Platelet Volume 6.6, Neutrophils (%) (Auto) 69.3, Lymphocytes (%) (Auto) 17.1L, Monocytes (%) (Auto) 8.9, Eosinophils (%) (Auto) 3.8H, Basophils (%) (Auto) 0.9, Sodium Level 136, Potassium Level 4.1, Chloride Level 104, Carbon Dioxide Level 19L, Anion Gap 13, Blood Urea Nitrogen 21H, Creatinine 1.1, Estimat Glomerular Filtration Rate > 60, Glucose Level 80, Calcium Level 8.9, Magnesium Level 2.4, Ferritin 495H Height (Feet): 5 Height (Inches): 6.00 Weight (Pounds): 127 General Appearance: lethargic EENT: normal ENT inspection Neck: normal alignment Cardiovascular: normal peripheral pulses, normal rate, regular rhythm Respiratory/Chest: chest wall non-tender, lungs clear, normal breath sounds Abdomen: normal bowel sounds, non tender, soft Extremities: normal inspection Edema: no edema noted Arm (L), no edema noted Arm (R), no edema noted Leg (L), no edema noted Leg (R), no edema noted Pedal (L), no edema noted Pedal (R), no edema noted Generalized Neurologic: motor weakness Skin: normal pigmentation, warm/dry Gato Viveros DO Apr 08, 2019 13:30
[2019-04-08] MEDS ORDERED: Acetaminophen 650mg/20.3ml GT PRN (13:45)
[2019-04-08] MEDS ORDERED: Miralax 17gm pkt GT PRN (13:45)
[2019-04-08] MEDS: Cefepime HCl 1 GM in D5W 55 ML IVPB SCH (14:20)
--- NOTE | 2019-04-08 14:53 | NUR ---
*-* INSURANCE *-* CLINICALS AND REVIEWS HAVE BEEN FAXED TO: [facility] [facility] [phone]
[2019-04-08] MEDS ORDERED: Tubing IV Secondary IV ONE (14:58)
--- NOTE | 2019-04-08 15:11 | NUR ---
RD ASSESSMENT & RECOMMENDATIONS SEE CARE ACTIVITY FOR COMPLETE ASSESSMENT DAILY ESTIMATED NEEDS: Needs based on Critical care, underweight TF [employer]PORATE [employer] PROGRAM COORDINATOR 57.71kg 30-35 kcals/kg 3410-4171 total kcals 1.25-2 g protein/kg 72-115 g total protein 25-30 mL/kg 8136-9760 total fluid mLs NUTRITION DIAGNOSIS: * Increased kcal/prot intake needs R/T sepsis, underweight status and wound healing as evidenced by pt adm w/ critically elev WBC (24* -> now wnl), now afebrile, @69% [place] Body Weight, admitted w/ multiple non-blanchable redness, refer to WC eval. * Swallowing difficulty R/T respiratory status as evidenced by pt vent dep via trach, PEG dep. CURRENT TF: NPO ENTERAL NUTRITION RECOMMENDATIONS: Osmolite 1.5 @ 55ml/hr x 22 hrs to provide 1210ml, 1815kcal, 76g prot, 922ml free water * As medically able, initiate Osmolite 1.5 @ 25ml/hr for 6 hrs, advance as tolerated to goal. * HOLD TF 1h before and 1 after Synthroid administration. * Water flush 150ml q 6 hrs/ HOB over 30 degrees . ADDITIONAL RECOMMENDATIONS: * Calibrated bedscale weight for accurate CBW + weekly wt monitoring * Wound care: Add JOYCELYN BID via GT Continue Vit C 250mg daily via GT * Monitor for ability to initiate TF's/ NPO at this time . . .
[2019-04-08 16:00] VITALS: BP 140/62
--- NOTE | 2019-04-08 17:44 | Cardiology Report ---
APPROVED REPORT EKG Measurement Heart [id number] CT [id number] [id number] Sinus tachycardia Otherwise normal ECG
--- NOTE | 2019-04-08 18:38 | NUR ---
RESPIRATORY NOTE: Received pt on AC 14, 600VT, 35%, PEEP +5. Pt is trach-dependent w/ a cuffed, Portex 8 tube. Pt disoriented, responds to stimuli. B/S nora. rhonchi, sxn moderate amounts of thick/thin, frothy, pale-yellow secretions. Vent plugged into red outlet, ambubag at bedside. Pt in no apparent distress at this time. Will continue plan of care.
--- NOTE | 2019-04-08 19:21 | NUR ---
HAND-OFF: Report given to Raymond RN. Pt. remain stable.
--- NOTE | 2019-04-08 19:27 | NUR ---
NURSE NOTES: Report received from ODILIA Domingo. Observed pt lying in the bed. Pt open eyes, but non-verbal. Large amount of secretion from mouth noted. SR with quality assurance monitor body. GT leaking noted. F/C intact and draining yellow urine. IV on R EJ 18G, running 1/2 NS at 75cc/hr. Bed in the lowest position. Side rails up x3. Will continue to monitor.
[2019-04-08 20:00] VITALS: BP 120/60
[2019-04-09] VITALS: BP 136/89
--- NOTE | 2019-04-09 | NUR ---
NURSE NOTES: Observed pt sleeping in the bed. SR with founder and chief executive officer. GT still leaking noted. Reposition done. Oral care done. Will continue to monitor.
[2019-04-09] MEDS: Sucralfate 1gm tab GT SCH ×4 (00:26→18:08)
[2019-04-09 04:00] VITALS: BP 123/71
[2019-04-09 04:38] LABS: BASOPHILS % (AUTO) 0.5 % (0.0-2.0); EOSINOPHILS % (AUTO) 5.4 % (0.0-3.0); HEMATOCRIT 26.7 % (42.0-52.0); HEMOGLOBIN 8.5 G/DL (14.2-18.0); LYMPHOCYTES % (AUTO) 16.3 % (20.0-45.0); MEAN CORPUSCULAR VOLUME 88 FL (80-99); MONOCYTES % (AUTO) 9.2 % (1.0-10.0); NEUTROPHILS % (AUTO) 68.7 % (45.0-75.0); PLATELET COUNT 333 K/UL (150-450); RED BLOOD COUNT 3.03 M/UL (4.70-6.10); RED CELL DISTRIBUTION WIDTH 14.5 % (11.6-14.8); WHITE BLOOD COUNT 9.7 K/UL (4.8-10.8)
[2019-04-09 04:55] LABS: ALANINE AMINOTRANSFERASE 17 U/L (12-78); ALBUMIN 2.6 G/DL (3.4-5.0); ALBUMIN/GLOBULIN RATIO 0.6 (1.0-2.7); ALKALINE PHOSPHATASE 145 U/L (46-116); ANION GAP 15 mmol/L (5-15); ASPARTATE AMINO TRANSFERASE 19 U/L (15-37); BILIRUBIN,TOTAL 0.4 MG/DL (0.2-1.0); BLOOD UREA NITROGEN 16 mg/dL (7-18); CALCIUM 8.9 MG/DL (8.5-10.1); CARBON DIOXIDE 18 MMOL/L (21-32); CHLORIDE 102 MMOL/L (98-107); PHOSPHORUS 3.3 MG/DL (2.5-4.9); POTASSIUM 3.6 MMOL/L (3.5-5.1); SODIUM 135 MMOL/L (136-145)
--- NOTE | 2019-04-09 06:30 | NUR ---
RESPIRATORY NOTE: Received pt on vent settings AC R 14 VT 600 35% PEEP +5. Suction moderate amount of thick/thin pale yellow secretions, no complications. Pt is trach dependent with portex cuffed 8.0. Trach is patent and secure via trach tie/guard. Cuff pressure checked via [employer] HUMANITIES COUNCIL DIRECTOR. Alarms are on and audible. Vent is plugged into the red outlet, ambu bag is at bedside. No respiratory distress noted. Will continue to monitor.
--- NOTE | 2019-04-09 07:35 | NUR ---
HAND-OFF: Report given to ODILIA Lopez. No distress noted at this time.
[2019-04-09 08:00] VITALS: BP 132/62
--- NOTE | 2019-04-09 08:57 | Diagnostic Imaging Report ---
APPROVED REPORT CPT Code: 43889 Present Symptoms Comments: AMS BILATERAL: Imaging reveals a patent deep venous system bilaterally. There is no evidence of thrombus within the femoral, popliteal or tibial segments. The greater saphenous veins are also within normal limits. Doppler indicates normal spontaneous flow within these segments.
--- NOTE | 2019-04-09 08:58 | NUR ---
RADIOLOGY DEPT., CHEST X-RAY DONE.-P.DYE
--- NOTE | 2019-04-09 09:15 | NUR ---
NURSE NOTES: Dr. Hayden updated on patient treatment plan, made aware of hgb remaining stable at 8.5 and no bleeding noted, no orders given at this time.
[2019-04-09] MEDS: Ascorbic Acid 500mg tab GT SCH (09:38)
--- NOTE | 2019-04-09 09:45 | NUR ---
NURSE NOTES: New G-tube placed at the bedside size 24F. Tolerated procedure well with no drainage of oozing noted, will have KUB ordered to confirm placement,
--- NOTE | 2019-04-09 09:52 | General Progress Note ---
Assessment/Plan Problem List: (1) Diabetes ICD Codes: E11.9 - Type 2 diabetes mellitus without complications SNOMED: 61490953 (2) HTN (hypertension) ICD Codes: I10 - Essential (primary) hypertension SNOMED: 02882628 (3) CVA (cerebral vascular accident) ICD Codes: I63.9 - Cerebral infarction, unspecified SNOMED: 904876000 (4) Respiratory failure, vtpio-fc-zfkmkvw ICD Codes: J96.20 - Respiratory failure, ocdwe-sr-zssjjmn SNOMED: 52821808 (5) Upper GI bleed ICD Codes: K92.2 - Upper gastrointestinal hemorrhage SNOMED: 15283909 Status: stable, progressing Assessment/Plan: vent abx bp bs control cbc bmp am Subjective Constitutional: Reports: weakness Allergies: Coded Allergies: NO KNOWN DRUG ALLERGIES (Verified Allergy, Unknown, 09/11/16) All Systems: reviewed and negative except above Subjective trach vent altered Objective Last 24 Hour Vital Signs Date Time Temp Pulse Resp B/P (MAP) Pulse Ox O2 Delivery O2 Flow Rate FiO2 04/09/19 08:51 74 20 35 04/09/19 08:00 97.9 68 16 132/62 (85) 98 04/09/19 08:00 35 04/09/19 06:32 60 15 35 04/09/19 04:52 77 14 35 04/09/19 04:00 98.1 76 14 123/71 (88) 100 04/09/19 04:00 35 04/09/19 04:00 72 04/09/19 04:00 Mechanical Ventilator 04/09/19 02:48 79 15 35 04/09/19 00:48 84 15 35 04/09/19 00:00 98.6 72 14 136/89 (105) 100 04/09/19 00:00 35 04/09/19 00:00 Mechanical Ventilator 04/09/19 00:00 79 04/08/19 23:06 89 16 35 04/08/19 20:46 81 17 35 04/08/19 20:00 Mechanical Ventilator 04/08/19 20:00 35 04/08/19 20:00 98.5 81 15 120/60 (80) 99 04/08/19 20:00 81 04/08/19 18:35 84 15 35 04/08/19 17:11 74 14 35 04/08/19 16:00 35 04/08/19 16:00 Mechanical Ventilator 04/08/19 16:00 98.6 76 16 140/62 (88) 100 04/08/19 15:24 77 04/08/19 15:02 82 14 35 04/08/19 13:02 77 14 35 04/08/19 12:00 35 04/08/19 12:00 98.1 77 18 111/73 (86) 99 04/08/19 12:00 Mechanical Ventilator 04/08/19 11:45 76 04/08/19 10:47 82 15 35 Intake and Output 04/08/19 04/09/19 19:00 07:00 Intake Total 950 ml 1000 ml Output Total 375 ml 700 ml Balance 575 ml 300 ml Intake Free Water 50 ml 100 ml IV Total 900 ml 900 ml Output Urine Total 375 ml 700 ml Laboratory Tests 04/09/19 03:05: White Blood Count 9.7, Red Blood Count 3.03L, Hemoglobin 8.5L, Hematocrit 26.7L , Mean Corpuscular Volume 88, Mean Corpuscular Hemoglobin 28.2, Mean Corpuscular Hemoglobin Concent 32.0, Red Cell Distribution Width 14.5, Platelet Count 333, Mean Platelet Volume 7.0, Neutrophils (%) (Auto) 68.7, Lymphocytes (% ) (Auto) 16.3L, Monocytes (%) (Auto) 9.2, Eosinophils (%) (Auto) 5.4H, Basophils (%) (Auto) 0.5, Sodium Level 135L, Potassium Level 3.6, Chloride Level 102, Carbon Dioxide Level 18L, Anion Gap 15, Blood Urea Nitrogen 16, Creatinine 1.0, Estimat Glomerular Filtration Rate > 60, Glucose Level 66L, Calcium Level 8.9, Phosphorus Level 3.3, Magnesium Level 1.8, Total Bilirubin 0.4, Aspartate Amino Transf (AST/SGOT) 19, Alanine Aminotransferase (ALT/SGPT) 17, Alkaline Phosphatase 145H, Total Protein 7.1, Albumin 2.6L, Globulin 4.5, Albumin/Globulin Ratio 0.6L Height (Feet): 5 Height (Inches): 6.00 Weight (Pounds): 129 General Appearance: lethargic EENT: normal ENT inspection Neck: normal alignment Cardiovascular: normal peripheral pulses, normal rate, regular rhythm Respiratory/Chest: chest wall non-tender, lungs clear, normal breath sounds Abdomen: normal bowel sounds, non tender, soft Extremities: normal inspection Edema: no edema noted Arm (L), no edema noted Arm (R), no edema noted Leg (L), no edema noted Leg (R), no edema noted Pedal (L), no edema noted Pedal (R), no edema noted Generalized Neurologic: motor weakness Skin: normal pigmentation, warm/dry Gato Viveros DO Apr 09, 2019 09:52
--- NOTE | 2019-04-09 10:00 | NUR ---
NURSE NOTES: Dr. Keating made aware of G-tube placement at the bedside, would like to have patient transferred to [facility] once patient starts feeding and remain free of leaking G-tube. No further orders given,
[2019-04-09] MEDS ORDERED: Gastrograffin 30ml ORAL ONE (10:15)
--- NOTE | 2019-04-09 10:16 | GI Progress Note ---
Assessment/Plan Problems: (1) GT SITE LEAKING (2) Upper GI bleed ICD Codes: K92.2 - Upper gastrointestinal hemorrhage SNOMED: 40394471 (3) Severe protein-calorie malnutrition ICD Codes: E43 - Unspecified severe protein-calorie malnutrition SNOMED: 006674054 (4) Malfunction of gastrostomy tube ICD Codes: K94.23 - Gastrostomy malfunction SNOMED: 530901268 (5) Severe erosive esophagitis Status: unchanged Status Narrative Discussed with Dr. Wilson. Assessment/Plan stable H&H EGD only if emergent. Wound care consult. GT changed today, start feeding. Monitor H&H, as needed transfusions Prevacid twice daily Carafate IV PO hydration follow labs The patient was seen and examined at bedside and all new and available data was reviewed in the patients chart. I agree with the above findings, impression and plan. (Patient seen earlier today. Signature stamp does not reflect patient encounter time.). - Vitaliy Wilson MD Subjective Subjective limited Objective Last 24 Hour Vital Signs Date Time Temp Pulse Resp B/P (MAP) Pulse Ox O2 Delivery O2 Flow Rate FiO2 04/09/19 08:51 74 20 35 04/09/19 08:00 Mechanical Ventilator 04/09/19 08:00 97.9 68 16 132/62 (85) 98 04/09/19 08:00 35 04/09/19 06:32 60 15 35 04/09/19 04:52 77 14 35 04/09/19 04:00 98.1 76 14 123/71 (88) 100 04/09/19 04:00 35 04/09/19 04:00 72 04/09/19 04:00 Mechanical Ventilator 04/09/19 02:48 79 15 35 04/09/19 00:48 84 15 35 04/09/19 00:00 98.6 72 14 136/89 (105) 100 04/09/19 00:00 35 04/09/19 00:00 Mechanical Ventilator 04/09/19 00:00 79 04/08/19 23:06 89 16 35 04/08/19 20:46 81 17 35 04/08/19 20:00 Mechanical Ventilator 04/08/19 20:00 35 04/08/19 20:00 98.5 81 15 120/60 (80) 99 04/08/19 20:00 81 04/08/19 18:35 84 15 35 04/08/19 17:11 74 14 35 04/08/19 16:00 35 04/08/19 16:00 Mechanical Ventilator 04/08/19 16:00 98.6 76 16 140/62 (88) 100 04/08/19 15:24 77 04/08/19 15:02 82 14 35 04/08/19 13:02 77 14 35 04/08/19 12:00 35 04/08/19 12:00 98.1 77 18 111/73 (86) 99 04/08/19 12:00 Mechanical Ventilator 04/08/19 11:45 76 04/08/19 10:47 82 15 35 Intake and Output 04/08/19 04/09/19 19:00 07:00 Intake Total 950 ml 1000 ml Output Total 375 ml 700 ml Balance 575 ml 300 ml Intake Free Water 50 ml 100 ml IV Total 900 ml 900 ml Output Urine Total 375 ml 700 ml Laboratory Tests Test 04/09/19 03:05 White Blood Count 9.7 K/UL (4.8-10.8) Red Blood Count 3.03 M/UL (4.70-6.10) L Hemoglobin 8.5 G/DL (14.2-18.0) L Hematocrit 26.7 % (42.0-52.0) L Mean Corpuscular Volume 88 FL (80-99) Mean Corpuscular Hemoglobin 28.2 PG (27.0-31.0) Mean Corpuscular Hemoglobin Concent 32.0 G/DL (32.0-36.0) Red Cell Distribution Width 14.5 % (11.6-14.8) Platelet Count 333 K/UL (150-450) Mean Platelet Volume 7.0 FL (6.5-10.1) Neutrophils (%) (Auto) 68.7 % (45.0-75.0) Lymphocytes (%) (Auto) 16.3 % (20.0-45.0) L Monocytes (%) (Auto) 9.2 % (1.0-10.0) Eosinophils (%) (Auto) 5.4 % (0.0-3.0) H Basophils (%) (Auto) 0.5 % (0.0-2.0) Sodium Level 135 MMOL/L (136-145) L Potassium Level 3.6 MMOL/L (3.5-5.1) Chloride Level 102 MMOL/L (98-107) Carbon Dioxide Level 18 MMOL/L (21-32) L Anion Gap 15 mmol/L (5-15) Blood Urea Nitrogen 16 mg/dL (7-18) Creatinine 1.0 MG/DL (0.55-1.30) Estimat Glomerular Filtration Rate > 60 mL/min (>60) Glucose Level 66 MG/DL (74-106) L Calcium Level 8.9 MG/DL (8.5-10.1) Phosphorus Level 3.3 MG/DL (2.5-4.9) Magnesium Level 1.8 MG/DL (1.8-2.4) Total Bilirubin 0.4 MG/DL (0.2-1.0) Aspartate Amino Transf (AST/SGOT) 19 U/L (15-37) Alanine Aminotransferase (ALT/SGPT) 17 U/L (12-78) Alkaline Phosphatase 145 U/L (46-116) H Total Protein 7.1 G/DL (6.4-8.2) Albumin 2.6 G/DL (3.4-5.0) L Globulin 4.5 g/dL Albumin/Globulin Ratio 0.6 (1.0-2.7) L Height (Feet): 5 Height (Inches): 6.00 Weight (Pounds): 129 General Appearance: WD/WN, no apparent distress, alert Cardiovascular: normal rate Respiratory/Chest: normal breath sounds, no respiratory distress Abdominal Exam: normal bowel sounds, non tender, soft, GT site - reported leakage by RN Extremities: non-tender Emanuel Quesada COMPLETIONS ENGINEER Apr 09, 2019 10:16
--- NOTE | 2019-04-09 10:28 | Pulmonolgy Critical Care Note ---
Critical Care - Asmt/Plan Problems: (1) Septic shock (2) Respiratory failure, [id number] (3) Acute encephalopathy (4) UTI (urinary tract infection) (5) Alzheimer's dementia (6) Severe erosive esophagitis (7) Feeding by G-tube (8) Severe protein-calorie malnutrition Respiratory: monitor respiratory rate Cardiac: start pressors, stop pressors Renal: keep IV fluid, check electrolytes Infectious Disease: check cultures Gastrointestinal: continue feedings/current rate Endocrine: monitor blood sugar, check TSH, continue sliding scale insulin Hematologic: transfuse if hgb<8.5 Neurologic: PRN Ativan, PRN Morphine, keep patient comfortable Time Spent (Minutes): 40 Notes Reviewed: 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 with: nurses, consultants, test case developerpartner marketing manager - Objective Last 24 Hour Vital Signs Date Time Temp Pulse Resp B/P (MAP) Pulse Ox O2 Delivery O2 Flow Rate FiO2 04/09/19 08:51 74 20 35 04/09/19 08:00 Mechanical Ventilator 04/09/19 08:00 97.9 68 16 132/62 (85) 98 04/09/19 08:00 35 04/09/19 06:32 60 15 35 04/09/19 04:52 77 14 35 04/09/19 04:00 98.1 76 14 123/71 (88) 100 04/09/19 04:00 35 04/09/19 04:00 72 04/09/19 04:00 Mechanical Ventilator 04/09/19 02:48 79 15 35 04/09/19 00:48 84 15 35 04/09/19 00:00 98.6 72 14 136/89 (105) 100 04/09/19 00:00 35 04/09/19 00:00 Mechanical Ventilator 04/09/19 00:00 79 04/08/19 23:06 89 16 35 04/08/19 20:46 81 17 35 04/08/19 20:00 Mechanical Ventilator 04/08/19 20:00 35 04/08/19 20:00 98.5 81 15 120/60 (80) 99 04/08/19 20:00 81 04/08/19 18:35 84 15 35 04/08/19 17:11 74 14 35 04/08/19 16:00 35 04/08/19 16:00 Mechanical Ventilator 04/08/19 16:00 98.6 76 16 140/62 (88) 100 04/08/19 15:24 77 04/08/19 15:02 82 14 35 04/08/19 13:02 77 14 35 04/08/19 12:00 35 04/08/19 12:00 98.1 77 18 111/73 (86) 99 04/08/19 12:00 Mechanical Ventilator 04/08/19 11:45 76 04/08/19 10:47 82 15 35 Status: awake Condition: critical HEENT: atraumatic Neck: full ROM Lungs: clear Heart: HR/BP stable Abdomen: soft, active bowel sounds Micro: Microbiology Date/Time Source Procedure Growth Status 04/07/19 03:30 Sputum Gram Stain - Final Resulted 04/07/19 03:30 Sputum Culture - Preliminary Klebsiella Pneumoniae Resulted Critical Care - Subjective ROS Limited/Unobtainable: No Condition: critical EKG Rhythm: Sinus Rhythm FI02: 35 Vent Support Breath Rate: 14 Vent Support Mode: AC Vent Tidal Volume: 600 Sputum Amount: Moderate PEEP: 5.0 PIP: 20 I&O: Intake and Output 04/08/19 04/09/19 19:00 07:00 Intake Total 950 ml 1000 ml Output Total 375 ml 700 ml Balance 575 ml 300 ml Intake Free Water 50 ml 100 ml IV Total 900 ml 900 ml Output Urine Total 375 ml 700 ml CXR: no infiltrate Labs: Laboratory Tests Test 04/09/19 03:05 White Blood Count 9.7 K/UL (4.8-10.8) Red Blood Count 3.03 M/UL (4.70-6.10) L Hemoglobin 8.5 G/DL (14.2-18.0) L Hematocrit 26.7 % (42.0-52.0) L Mean Corpuscular Volume 88 FL (80-99) Mean Corpuscular Hemoglobin 28.2 PG (27.0-31.0) Mean Corpuscular Hemoglobin Concent 32.0 G/DL (32.0-36.0) Red Cell Distribution Width 14.5 % (11.6-14.8) Platelet Count 333 K/UL (150-450) Mean Platelet Volume 7.0 FL (6.5-10.1) Neutrophils (%) (Auto) 68.7 % (45.0-75.0) Lymphocytes (%) (Auto) 16.3 % (20.0-45.0) L Monocytes (%) (Auto) 9.2 % (1.0-10.0) Eosinophils (%) (Auto) 5.4 % (0.0-3.0) H Basophils (%) (Auto) 0.5 % (0.0-2.0) Sodium Level 135 MMOL/L (136-145) L Potassium Level 3.6 MMOL/L (3.5-5.1) Chloride Level 102 MMOL/L (98-107) Carbon Dioxide Level 18 MMOL/L (21-32) L Anion Gap 15 mmol/L (5-15) Blood Urea Nitrogen 16 mg/dL (7-18) Creatinine 1.0 MG/DL (0.55-1.30) Estimat Glomerular Filtration Rate > 60 mL/min (>60) Glucose Level 66 MG/DL (74-106) L Calcium Level 8.9 MG/DL (8.5-10.1) Phosphorus Level 3.3 MG/DL (2.5-4.9) Magnesium Level 1.8 MG/DL (1.8-2.4) Total Bilirubin 0.4 MG/DL (0.2-1.0) Aspartate Amino Transf (AST/SGOT) 19 U/L (15-37) Alanine Aminotransferase (ALT/SGPT) 17 U/L (12-78) Alkaline Phosphatase 145 U/L (46-116) H Total Protein 7.1 G/DL (6.4-8.2) Albumin 2.6 G/DL (3.4-5.0) L Globulin 4.5 g/dL Albumin/Globulin Ratio 0.6 (1.0-2.7) L Huma Keating MD Apr 09, 2019 10:28
--- NOTE | 2019-04-09 10:45 | NUR ---
NURSE NOTES: KUB completed to confirm placement of new placed G-tube, patient tolerated procedure well with no distress noted, will continue to monitor.
[2019-04-09] MEDS: D5 1/2NS 1,000 ML IV SCH (10:53)
--- NOTE | 2019-04-09 11:05 | Infectious Diseases Prog Note ---
Assessment/Plan Assessment/Plan Assessment: Probable Sepsis vs SIRS (due to GIB) =04/07 Sp cx MDR K. pna (I Imipenem, Amikacin, Gentamycin); likely colnizer -Bcx NTD -04/05 CXR: No acute findings. Probable UTI -u/a wbc tnct, nit neg, leuk +3; ucx 40-50k P.stuarti (S Ceftriaxone, Zosyn, Ertapenem) Afebrile Leukocytosis, SP hx of infected obstuctive ureterolithiasis/w abscess s/p L NT placed 12/2018 s/p 1 month Ertapenem -sp L NT exchange 02/2019 hx of UTI - Urine Cx 02/15/19 - Proteus - Sen to Sherly and amik - ESBL UTI 07/2018 Hx Constipation Chronic respiratory failure trach/vent dependant Hypothyroidism GERD Hypertension Hx C. diff Dysphagia s/p G-tube Anemia. CVA/TIA w/ hemiplegia functional quadriplegia chronic encephalopathy CAD CHF Asthma Dm2 GIB s/p multiple EGDs in the past hx of diffuse ulcerative esophagitis, peptic esophageal stricture (EGD Jul 2018 ) schizoaffective disease senior living resident multiple admissions hx of VRE colonization malnutrition Plan: -Continue Cefepime #2 (abx d #12/15- for P. stuarti UTI) -MDRO in sputum likely colonizer -04/08 SP Ertapenem #3 -04/07 SP IV Vancomycin #2 - 02/22/19 SP meropenem #7 and vancomcyin #7 - 02/19/19 SP vancomcyin #4 - S/p Melita.Erta x 1 month - 12/23/18 SP Zosyn #11, inhaled colistin #8 for MDR P.a.for sputum organism and Fluconazole #7 for Yeast it the urine - 12/12 S/P Vancomycin and Cefepime #5 -12/08 SP Levaquin x1 -11/06 SP Amikacin #6 -11/01 SP Meropenem #4 -10/29 SP IV Vanco #2, Cefepime #2 and Tigecycline #1 -10/28 SP LEavquin x1 -10/09 SP Ertapenem #5 - 10/04 SP Meropenem #2 -10/03/18 SP IV Vancomycin #2 and Cefepime #2 -08/09/18 SP Bactrim #7 -08/03 SP Vancomycin and Cefepime #3 -08/01/18 SP Ceftriaxone x1 -f/u cx -Monitor CBC/CMP, temperatures -Peg/trach care -aspiration precautions -f/u Bcx x2 -GI f.u -f/u CXR am Thank you for this consultation. Will continue to follow along with you. Discussed with RN. Subjective Allergies: Coded Allergies: NO KNOWN DRUG ALLERGIES (Verified Allergy, Unknown, 09/11/16) Subjective afebrile no leukocytosis Bcx NTD Objective Vital Signs Last 24 Hour Vital Signs Date Time Temp Pulse Resp B/P (MAP) Pulse Ox O2 Delivery O2 Flow Rate FiO2 04/09/19 08:51 74 20 35 04/09/19 08:00 Mechanical Ventilator 04/09/19 08:00 97.9 68 16 132/62 (85) 98 04/09/19 08:00 35 04/09/19 07:46 70 04/09/19 06:32 60 15 35 04/09/19 04:52 77 14 35 04/09/19 04:00 98.1 76 14 123/71 (88) 100 04/09/19 04:00 35 04/09/19 04:00 72 04/09/19 04:00 Mechanical Ventilator 04/09/19 02:48 79 15 35 04/09/19 00:48 84 15 35 04/09/19 00:00 98.6 72 14 136/89 (105) 100 04/09/19 00:00 35 04/09/19 00:00 Mechanical Ventilator 04/09/19 00:00 79 04/08/19 23:06 89 16 35 04/08/19 20:46 81 17 35 04/08/19 20:00 Mechanical Ventilator 04/08/19 20:00 35 04/08/19 20:00 98.5 81 15 120/60 (80) 99 04/08/19 20:00 81 04/08/19 18:35 84 15 35 04/08/19 17:11 74 14 35 04/08/19 16:00 35 04/08/19 16:00 Mechanical Ventilator 04/08/19 16:00 98.6 76 16 140/62 (88) 100 04/08/19 15:24 77 04/08/19 15:02 82 14 35 04/08/19 13:02 77 14 35 04/08/19 12:00 35 04/08/19 12:00 98.1 77 18 111/73 (86) 99 04/08/19 12:00 Mechanical Ventilator 04/08/19 11:45 76 Height (Feet): 5 Height (Inches): 6.00 Weight (Pounds): 129 Objective General Appearance: cachetic, thin Lines, tubes and drains: peripheral HEENT: normocephalic, atraumatic Respiratory/Chest: chest wall non-tender, lungs clear Breasts: no masses Cardiovascular/Chest: normal peripheral pulses, normal rate Abdomen: normal bowel sounds Extremities: normal range of motion Microbiology Date/Time Source Procedure Growth Status 04/07/19 03:30 Sputum Gram Stain - Final Resulted 04/07/19 03:30 Sputum Culture - Preliminary Klebsiella Pneumoniae Resulted Laboratory Tests Test 04/09/19 03:05 White Blood Count 9.7 K/UL (4.8-10.8) Red Blood Count 3.03 M/UL (4.70-6.10) L Hemoglobin 8.5 G/DL (14.2-18.0) L Hematocrit 26.7 % (42.0-52.0) L Mean Corpuscular Volume 88 FL (80-99) Mean Corpuscular Hemoglobin 28.2 PG (27.0-31.0) Mean Corpuscular Hemoglobin Concent 32.0 G/DL (32.0-36.0) Red Cell Distribution Width 14.5 % (11.6-14.8) Platelet Count 333 K/UL (150-450) Mean Platelet Volume 7.0 FL (6.5-10.1) Neutrophils (%) (Auto) 68.7 % (45.0-75.0) Lymphocytes (%) (Auto) 16.3 % (20.0-45.0) L Monocytes (%) (Auto) 9.2 % (1.0-10.0) Eosinophils (%) (Auto) 5.4 % (0.0-3.0) H Basophils (%) (Auto) 0.5 % (0.0-2.0) Sodium Level 135 MMOL/L (136-145) L Potassium Level 3.6 MMOL/L (3.5-5.1) Chloride Level 102 MMOL/L (98-107) Carbon Dioxide Level 18 MMOL/L (21-32) L Anion Gap 15 mmol/L (5-15) Blood Urea Nitrogen 16 mg/dL (7-18) Creatinine 1.0 MG/DL (0.55-1.30) Estimat Glomerular Filtration Rate > 60 mL/min (>60) Glucose Level 66 MG/DL (74-106) L Calcium Level 8.9 MG/DL (8.5-10.1) Phosphorus Level 3.3 MG/DL (2.5-4.9) Magnesium Level 1.8 MG/DL (1.8-2.4) Total Bilirubin 0.4 MG/DL (0.2-1.0) Aspartate Amino Transf (AST/SGOT) 19 U/L (15-37) Alanine Aminotransferase (ALT/SGPT) 17 U/L (12-78) Alkaline Phosphatase 145 U/L (46-116) H Total Protein 7.1 G/DL (6.4-8.2) Albumin 2.6 G/DL (3.4-5.0) L Globulin 4.5 g/dL Albumin/Globulin Ratio 0.6 (1.0-2.7) L Current Medications Medications (Trade) Dose Ordered Sig/Wanda Route PRN Reason Start Time Stop Time Status Last Admin Dose Admin Acetaminophen (Tylenol) 650 mg Q4H PRN GT FEVER (temp>100.5F) 04/08/19 13:45 05/06/19 07:14 Albuterol/ Ipratropium (Albuterol/ Ipratropium) 3 ml Q4H PRN HHN Shortness of Breath 04/06/19 07:15 04/11/19 07:14 Ascorbic Acid (Vitamin C) 250 mg DAILY GT 04/09/19 09:00 05/08/19 08:59 04/09/19 09:38 Cefepime HCl 1 gm/ Dextrose 55 ml @ 110 mls/hr Q24H IVPB 04/08/19 14:00 04/15/19 13:59 04/08/19 14:20 Dextrose (Dextrose 50%) 25 ml Q30M PRN IV Hypoglycemia 04/06/19 07:30 05/06/19 07:27 Dextrose (Dextrose 50%) 50 ml Q30M PRN IV hypoglycemia 04/06/19 07:30 05/06/19 07:29 Dextrose/Sodium Chloride 1,000 ml @ 75 mls/hr [id number] IV 04/09/19 10:15 05/09/19 10:14 04/09/19 10:53 Lansoprazole (Prevacid) 30 mg Q12HR GT 04/06/19 09:00 05/06/19 08:59 04/09/19 09:38 Levothyroxine Sodium (Synthroid) 75 mcg DAILY GT 04/06/19 09:00 05/06/19 08:59 04/09/19 09:37 Lorazepam (Ativan 2mg/ml 1ml) 2 mg Q2H PRN IV For Anxiety 04/06/19 07:15 04/13/19 07:14 Morphine Sulfate (Morphine Sulfate) 4 mg Q4H PRN IVP Severe Pain (Pain Scale 7-10) 04/06/19 07:15 04/13/19 07:14 Ondansetron HCl (Zofran) 4 mg Q6H PRN IVP Nausea & Vomiting 04/06/19 07:15 05/06/19 07:14 Polyethylene Glycol (Miralax) 17 gm DAILYPRN PRN GT Constipation 04/08/19 13:45 05/06/19 07:14 Sodium Chloride 1,000 ml @ 75 mls/hr [id number] IV 04/06/19 08:00 05/06/19 07:59 04/09/19 02:36 Sucralfate (Carafate) 1 gm Q6HR GT 04/06/19 12:00 05/06/19 11:59 04/09/19 05:58 Zinc Oxide (Zinc Oxide) 1 applic TIDPRN PRN TOPIC around g tube 04/08/19 12:00 05/08/19 11:59 Lisy Lai M.D. Apr 09, 2019 11:05
--- NOTE | 2019-04-09 11:07 | NUR ---
RADIOLOGY DEPT., ABDOMEN X-RAY FOR NEW G-TUBE PLMT COMPLETED.-P.DYE
--- NOTE | 2019-04-09 11:23 | Diagnostic Imaging Report ---
Indication: Gastrostomy check Comparison: None Single view of the abdomen obtained Findings: Gastrostomy tube is in the body of the stomach. There is contrast in the stomach after injection. IMPRESSION: Gastrostomy tube in good position. No leak
--- NOTE | 2019-04-09 11:24 | Diagnostic Imaging Report ---
Indication: Cough Comparison: 04/05/2019 A single view chest radiograph was obtained. Findings: Tracheostomy and noted. Heart size is normal. Lungs are essentially clear with some minimal basal atelectasis present, currently. Old fracture of the right clavicle again noted. IMPRESSION: No acute findings
[2019-04-09 12:00] VITALS: BP 138/76
--- NOTE | 2019-04-09 13:00 | NUR ---
NURSE NOTES: Stool OB collected and sent to laboratory for analysis, stool is pasty, soft and formed, with dark green black color, awaiting for results.
--- NOTE | 2019-04-09 13:02 | NUR ---
SENIOR RESEARCH ANALYSTSPINNER TENDER SI: RESP FAILURE TRACH/VENT DEPENDENT,GI BLEED T. 97.7 HR 78 RR 18 B/P 138/76 AC 14 TV 600 FIO2 30% PEEP 5 ALK PHOS 145 GLU 66 CXR= NO ACUTE PROCESS ABD X-RAY= GT IN GOOD POSITION IS: IVF D5NS@ 75ML/HR CARAFATE GT PREVACID GT STEP DOWN STATUS
[2019-04-09] MEDS: Cefepime HCl 1 GM in D5W 55 ML IVPB SCH (13:13)
--- NOTE | 2019-04-09 14:31 | Hematology/Onc Progress Note ---
Assessment/Plan Assessment/Plan Assessment and Recs: # Upper GI bleed with nausea/vomiting and hemoptysis, labs have been reviewed --> r/o active bleed --> started on protonix --> check h/h q12h or more frequent as needed --> Dr. Wilson has been consulted --> zofran prn basis --> hgb trend 11-->8.6-->8.4-->8.5 --> stool ob ordered 04/09 # Leukocytosis with UTI (urinary tract infection) MDR --> monitor for improvement --> trend 24k-->11k-->10.8 --> started on iv antibiotics (vanc) --> as per id recs # Azotemia with dehydration --> per renal # Hypercalcemia -- on ivf --> per renal and pth (pending) # Trach/vent --> as per pulm/cc management Appreciate business analyst consultant recs Subjective Hematologic/Lymphatic: Reports: anemia Allergies: Coded Allergies: NO KNOWN DRUG ALLERGIES (Verified Allergy, Unknown, 09/11/16) All Systems: reviewed and negative except above Subjective 04/07: nonverbal, labs reviewed, hgb is lower, no f/c, on vent 04/08: is on ertapenem, no f/c no chills noted, hgb lower 8.4 04/09: s/p g-tube, stool ob collected, results pending, h/h stable, cxr today negative Objective Objective Current Medications Medications (Trade) Dose Ordered Sig/Wanda Route PRN Reason Start Time Stop Time Status Last Admin Dose Admin Acetaminophen (Tylenol) 650 mg Q4H PRN GT FEVER (temp>100.5F) 04/08/19 13:45 05/06/19 07:14 Albuterol/ Ipratropium (Albuterol/ Ipratropium) 3 ml Q4H PRN HHN Shortness of Breath 04/06/19 07:15 04/11/19 07:14 Ascorbic Acid (Vitamin C) 250 mg DAILY GT 04/09/19 09:00 05/08/19 08:59 04/09/19 09:38 Cefepime HCl 1 gm/ Dextrose 55 ml @ 110 mls/hr Q24H IVPB 04/08/19 14:00 04/15/19 13:59 04/09/19 13:13 Dextrose (Dextrose 50%) 25 ml Q30M PRN IV Hypoglycemia 04/06/19 07:30 05/06/19 07:27 Dextrose (Dextrose 50%) 50 ml Q30M PRN IV hypoglycemia 04/06/19 07:30 05/06/19 07:29 Dextrose/Sodium Chloride 1,000 ml @ 75 mls/hr [id number] IV 04/09/19 10:15 05/09/19 10:14 04/09/19 10:53 Lansoprazole (Prevacid) 30 mg Q12HR GT 04/06/19 09:00 05/06/19 08:59 04/09/19 09:38 Levothyroxine Sodium (Synthroid) 75 mcg DAILY GT 04/06/19 09:00 05/06/19 08:59 04/09/19 09:37 Lorazepam (Ativan 2mg/ml 1ml) 2 mg Q2H PRN IV For Anxiety 04/06/19 07:15 04/13/19 07:14 Morphine Sulfate (Morphine Sulfate) 4 mg Q4H PRN IVP Severe Pain (Pain Scale 7-10) 04/06/19 07:15 04/13/19 07:14 Ondansetron HCl (Zofran) 4 mg Q6H PRN IVP Nausea & Vomiting 04/06/19 07:15 05/06/19 07:14 Polyethylene Glycol (Miralax) 17 gm DAILYPRN PRN GT Constipation 04/08/19 13:45 05/06/19 07:14 Sodium Chloride 1,000 ml @ 75 mls/hr [id number] IV 04/06/19 08:00 05/06/19 07:59 04/09/19 02:36 Sucralfate (Carafate) 1 gm Q6HR GT 04/06/19 12:00 05/06/19 11:59 04/09/19 13:13 Zinc Oxide (Zinc Oxide) 1 applic TIDPRN PRN TOPIC around g tube 04/08/19 12:00 05/08/19 11:59 Last 24 Hour Vital Signs Date Time Temp Pulse Resp B/P (MAP) Pulse Ox O2 Delivery O2 Flow Rate FiO2 04/09/19 13:36 88 20 35 04/09/19 12:00 97.7 78 18 138/76 (96) 98 04/09/19 12:00 78 04/09/19 12:00 Mechanical Ventilator 04/09/19 12:00 35 04/09/19 11:06 76 16 35 04/09/19 08:51 74 20 35 04/09/19 08:00 Mechanical Ventilator 04/09/19 08:00 97.9 68 16 132/62 (85) 98 04/09/19 08:00 35 04/09/19 07:46 70 04/09/19 06:32 60 15 35 04/09/19 04:52 77 14 35 04/09/19 04:00 98.1 76 14 123/71 (88) 100 04/09/19 04:00 35 04/09/19 04:00 72 04/09/19 04:00 Mechanical Ventilator 04/09/19 02:48 79 15 35 04/09/19 00:48 84 15 35 04/09/19 00:00 98.6 72 14 136/89 (105) 100 04/09/19 00:00 35 04/09/19 00:00 Mechanical Ventilator 04/09/19 00:00 79 04/08/19 23:06 89 16 35 04/08/19 20:46 81 17 35 04/08/19 20:00 Mechanical Ventilator 04/08/19 20:00 35 04/08/19 20:00 98.5 81 15 120/60 (80) 99 04/08/19 20:00 81 04/08/19 18:35 84 15 35 04/08/19 17:11 74 14 35 04/08/19 16:00 35 04/08/19 16:00 Mechanical Ventilator 04/08/19 16:00 98.6 76 16 140/62 (88) 100 04/08/19 15:24 77 04/08/19 15:02 82 14 35 04/08/19 13:02 77 14 35 04/08/19 12:00 35 04/08/19 12:00 98.1 77 18 111/73 (86) 99 04/08/19 12:00 Mechanical Ventilator 04/08/19 11:45 76 04/08/19 10:47 82 15 35 04/08/19 08:35 66 14 35 04/08/19 08:00 98.1 71 18 115/57 (76) 100 04/08/19 08:00 76 04/08/19 08:00 Mechanical Ventilator 04/08/19 08:00 35 04/08/19 07:08 67 14 35 04/08/19 05:00 81 16 35 04/08/19 04:00 Mechanical Ventilator 04/08/19 04:00 35 04/08/19 04:00 97.7 76 20 120/79 (93) 95 04/08/19 03:24 79 04/08/19 02:33 86 17 35 04/08/19 00:50 81 16 35 04/08/19 00:00 35 04/08/19 00:00 79 04/08/19 00:00 Mechanical Ventilator 04/08/19 00:00 98.6 76 16 137/82 (100) 100 04/07/19 22:42 82 16 35 04/07/19 20:40 89 17 35 04/07/19 20:00 35 04/07/19 20:00 Mechanical Ventilator 04/07/19 20:00 95 04/07/19 20:00 97.9 95 20 102/59 (73) 98 04/07/19 18:45 82 18 35 04/07/19 17:07 78 17 35 04/07/19 16:00 Mechanical Ventilator 04/07/19 16:00 35 04/07/19 16:00 35 04/07/19 16:00 98.0 82 18 100/54 (69) 100 04/07/19 15:44 79 04/07/19 15:23 84 17 35 Intake and Output 04/08/19 04/09/19 19:00 07:00 Intake Total 950 ml 1000 ml Output Total 375 ml 700 ml Balance 575 ml 300 ml Intake Free Water 50 ml 100 ml IV Total 900 ml 900 ml Output Urine Total 375 ml 700 ml Labs Test 04/07/19 03:05 04/08/19 03:20 04/09/19 03:05 04/09/19 13:00 White Blood Count 10.9 K/UL (4.8-10.8) 10.8 K/UL (4.8-10.8) 9.7 K/UL (4.8-10.8) Red Blood Count 3.04 M/UL (4.70-6.10) 2.94 M/UL (4.70-6.10) 3.03 M/UL (4.70-6.10) Hemoglobin 8.6 G/DL (14.2-18.0) 8.4 G/DL (14.2-18.0) 8.5 G/DL (14.2-18.0) Hematocrit 27.1 % (42.0-52.0) 26.2 % (42.0-52.0) 26.7 % (42.0-52.0) Mean Corpuscular Volume 89 FL (80-99) 89 FL (80-99) 88 FL (80-99) Mean Corpuscular Hemoglobin 28.4 PG (27.0-31.0) 28.4 PG (27.0-31.0) 28.2 PG (27.0-31.0) Mean Corpuscular Hemoglobin Concent 31.8 G/DL (32.0-36.0) 31.9 G/DL (32.0-36.0) 32.0 G/DL (32.0-36.0) Red Cell Distribution Width 15.0 % (11.6-14.8) 15.1 % (11.6-14.8) 14.5 % (11.6-14.8) Platelet Count 326 K/UL (150-450) 309 K/UL (150-450) 333 K/UL (150-450) Mean Platelet Volume 7.1 FL (6.5-10.1) 6.6 FL (6.5-10.1) 7.0 FL (6.5-10.1) Neutrophils (%) (Auto) 65.8 % (45.0-75.0) 69.3 % (45.0-75.0) 68.7 % (45.0-75.0) Lymphocytes (%) (Auto) 19.5 % (20.0-45.0) 17.1 % (20.0-45.0) 16.3 % (20.0-45.0) Monocytes (%) (Auto) 9.9 % (1.0-10.0) 8.9 % (1.0-10.0) 9.2 % (1.0-10.0) Eosinophils (%) (Auto) 4.1 % (0.0-3.0) 3.8 % (0.0-3.0) 5.4 % (0.0-3.0) Basophils (%) (Auto) 0.6 % (0.0-2.0) 0.9 % (0.0-2.0) 0.5 % (0.0-2.0) Sodium Level 135 MMOL/L (136-145) 136 MMOL/L (136-145) 135 MMOL/L (136-145) Potassium Level 3.9 MMOL/L (3.5-5.1) 4.1 MMOL/L (3.5-5.1) 3.6 MMOL/L (3.5-5.1) Chloride Level 104 MMOL/L (98-107) 104 MMOL/L (98-107) 102 MMOL/L (98-107) Carbon Dioxide Level 22 MMOL/L (21-32) 19 MMOL/L (21-32) 18 MMOL/L (21-32) Anion Gap 9 mmol/L (5-15) 13 mmol/L (5-15) 15 mmol/L (5-15) Blood Urea Nitrogen 28 mg/dL (7-18) 21 mg/dL (7-18) 16 mg/dL (7-18) Creatinine 1.2 MG/DL (0.55-1.30) 1.1 MG/DL (0.55-1.30) 1.0 MG/DL (0.55-1.30) Estimat Glomerular Filtration Rate 59.9 mL/min (>60) > 60 mL/min (>60) > 60 mL/min (>60) Glucose Level 91 MG/DL (74-106) 80 MG/DL (74-106) 66 MG/DL (74-106) Calcium Level 9.3 MG/DL (8.5-10.1) 8.9 MG/DL (8.5-10.1) 8.9 MG/DL (8.5-10.1) Calcium (Send out) 8.7 mg/dL (8.6-10.2) Phosphorus Level 3.6 MG/DL (2.5-4.9) 3.3 MG/DL (2.5-4.9) Albumin 2.8 G/DL (3.4-5.0) 2.6 G/DL (3.4-5.0) PTH (Intact) Whole Molecule Comment (.) Parathyroid Hormone (Intact) 41 pg/mL (15-65) Magnesium Level 2.4 MG/DL (1.8-2.4) 1.8 MG/DL (1.8-2.4) Ferritin 495 NG/ML (8-388) Total Bilirubin 0.4 MG/DL (0.2-1.0) Aspartate Amino Transf (AST/SGOT) 19 U/L (15-37) Alanine Aminotransferase (ALT/SGPT) 17 U/L (12-78) Alkaline Phosphatase 145 U/L (46-116) Total Protein 7.1 G/DL (6.4-8.2) Globulin 4.5 g/dL Albumin/Globulin Ratio 0.6 (1.0-2.7) Height (Feet): 5 Height (Inches): 6.00 Weight (Pounds): 129 Objective Physical Exam Vitals: reviewed Gen: other - nonverbal Neck: tracheotomy/vent Respiratory: chest non-tender, lungs clear, ++ vent Cv: regular rate, rhythm, no edema Gi: normal bowel sounds, non tender, soft, non-distended, no guarding, no rebound, G-TUBE+ Neurologic: other - nonverbal Psychiatric: other - nonverbal Skin: other - see nursing skin notes Lymphatic: normal inspection Nikos Nath MD Apr 09, 2019 14:31
--- NOTE | 2019-04-09 14:32 | Surgery Progress Note ---
Surgery Progress Note Subjective Additional Comments labs improved exam stable no acute events. Objective Last 24 Hour Vital Signs Date Time Temp Pulse Resp B/P (MAP) Pulse Ox O2 Delivery O2 Flow Rate FiO2 04/09/19 13:36 88 20 35 04/09/19 12:00 97.7 78 18 138/76 (96) 98 04/09/19 12:00 78 04/09/19 12:00 Mechanical Ventilator 04/09/19 12:00 35 04/09/19 11:06 76 16 35 04/09/19 08:51 74 20 35 04/09/19 08:00 Mechanical Ventilator 04/09/19 08:00 97.9 68 16 132/62 (85) 98 04/09/19 08:00 35 04/09/19 07:46 70 04/09/19 06:32 60 15 35 04/09/19 04:52 77 14 35 04/09/19 04:00 98.1 76 14 123/71 (88) 100 04/09/19 04:00 35 04/09/19 04:00 72 04/09/19 04:00 Mechanical Ventilator 04/09/19 02:48 79 15 35 04/09/19 00:48 84 15 35 04/09/19 00:00 98.6 72 14 136/89 (105) 100 04/09/19 00:00 35 04/09/19 00:00 Mechanical Ventilator 04/09/19 00:00 79 04/08/19 23:06 89 16 35 04/08/19 20:46 81 17 35 04/08/19 20:00 Mechanical Ventilator 04/08/19 20:00 35 04/08/19 20:00 98.5 81 15 120/60 (80) 99 04/08/19 20:00 81 04/08/19 18:35 84 15 35 04/08/19 17:11 74 14 35 04/08/19 16:00 35 04/08/19 16:00 Mechanical Ventilator 04/08/19 16:00 98.6 76 16 140/62 (88) 100 04/08/19 15:24 77 04/08/19 15:02 82 14 35 I&O Intake and Output 04/08/19 04/09/19 19:00 07:00 Intake Total 950 ml 1000 ml Output Total 375 ml 700 ml Balance 575 ml 300 ml Intake Free Water 50 ml 100 ml IV Total 900 ml 900 ml Output Urine Total 375 ml 700 ml Dressing: saturated Wound: clean Cardiovascular: RSR Respiratory: clear Abdomen: soft, flat, non-tender, non-distended Extremities: no cyanosis Laboratory Tests Test 04/09/19 03:05 04/09/19 13:00 White Blood Count 9.7 K/UL (4.8-10.8) Red Blood Count 3.03 M/UL (4.70-6.10) L Hemoglobin 8.5 G/DL (14.2-18.0) L Hematocrit 26.7 % (42.0-52.0) L Mean Corpuscular Volume 88 FL (80-99) Mean Corpuscular Hemoglobin 28.2 PG (27.0-31.0) Mean Corpuscular Hemoglobin Concent 32.0 G/DL (32.0-36.0) Red Cell Distribution Width 14.5 % (11.6-14.8) Platelet Count 333 K/UL (150-450) Mean Platelet Volume 7.0 FL (6.5-10.1) Neutrophils (%) (Auto) 68.7 % (45.0-75.0) Lymphocytes (%) (Auto) 16.3 % (20.0-45.0) L Monocytes (%) (Auto) 9.2 % (1.0-10.0) Eosinophils (%) (Auto) 5.4 % (0.0-3.0) H Basophils (%) (Auto) 0.5 % (0.0-2.0) Sodium Level 135 MMOL/L (136-145) L Potassium Level 3.6 MMOL/L (3.5-5.1) Chloride Level 102 MMOL/L (98-107) Carbon Dioxide Level 18 MMOL/L (21-32) L Anion Gap 15 mmol/L (5-15) Blood Urea Nitrogen 16 mg/dL (7-18) Creatinine 1.0 MG/DL (0.55-1.30) Estimat Glomerular Filtration Rate > 60 mL/min (>60) Glucose Level 66 MG/DL (74-106) L Calcium Level 8.9 MG/DL (8.5-10.1) Phosphorus Level 3.3 MG/DL (2.5-4.9) Magnesium Level 1.8 MG/DL (1.8-2.4) Total Bilirubin 0.4 MG/DL (0.2-1.0) Aspartate Amino Transf (AST/SGOT) 19 U/L (15-37) Alanine Aminotransferase (ALT/SGPT) 17 U/L (12-78) Alkaline Phosphatase 145 U/L (46-116) H Total Protein 7.1 G/DL (6.4-8.2) Albumin 2.6 G/DL (3.4-5.0) L Globulin 4.5 g/dL Albumin/Globulin Ratio 0.6 (1.0-2.7) L Stool Occult Blood Pending Plan Problems: (1) Severe protein-calorie malnutrition Assessment & Plan: DAILY ESTIMATED NEEDS: Needs based on Critical care, underweight TF [employer] WORK[employer] 57.71kg 30-35 kcals/kg 7541-9413 total kcals 1.25-2 g protein/kg 72-115 g total protein 25-30 mL/kg 3270-9416 total fluid mLs NUTRITION DIAGNOSIS: * Increased kcal/prot intake needs R/T sepsis, underweight status and wound healing as evidenced by pt adm w/ critically elev WBC (24*), febrile, @69% [place] Body Weight, w/ L foot partial thickness wound. * Swallowing difficulty R/T respiratory status as evidenced by pt vent dep via trach, PEG dep. ENTERAL NUTRITION RECOMMENDATIONS: Osmolite 1.5 @ 55ml/hr x 22 hrs + Prosource x1 daily to provide 1210ml, 1815kcal, 76g+11g prot, 922ml free water * As medically able, rec starting Osmolite 1.5 @ 25ml/hr for 6 hrs, advance as tolerated to goal. * Add Prosource x 1 pack daily. * HOLD TF 1h before and 1 after Synthroid administration. * Water flush 150ml q 6 hrs/ HOB over 30 degrees ------- ADDITIONAL RECOMMENDATIONS: * Calibrated bedscale weight for accurate CBW + weekly wt monitoring * Wound care: Add JOYCELYN BID via GT Add Vit C 250mg daily via GT (2) Upper GI bleed Assessment & Plan: Patient presented with coffee ground emesis, anemia, leukocytosis history of erosive esophagitis prior endoscopy notes reviewed GI note noted recommend PPI scope as per GI trend labs (3) Malfunction of gastrostomy tube Assessment & Plan: Patient pulls tube intermittently g tube site wound has improved since last admission site clean and needs to be monitored / maintained no significant leak today will apply silver nitrate as needed to wound to allow for healing - applied zinc oxide around wound prn will follow wound to ensure healing (4) GT SITE LEAKING Quirino Bernard Apr 09, 2019 14:32
--- NOTE | 2019-04-09 14:45 | NUR ---
NURSE NOTES: Laboratory called regarding request for service placed by Dr. Lai for colistin, tigecycline and polymyxin B sensitivity to MDR using Klebsiella in sputum sample no being completed, afternoon laboratory veterinarian said the tests can only be done in the morning and will have to be completed on 04/10/19. only tigecycline has been completed,
--- NOTE | 2019-04-09 14:53 | NUR ---
*-* INSURANCE *-* CLINICALS AND REVIEWS HAVE BEEN FAXED TO: [facility] [facility] [phone]
[2019-04-09 16:00] VITALS: BP 133/71
--- NOTE | 2019-04-09 17:00 | NUR ---
NURSE NOTES: Tube feeding Osmolite 1.5 increased to 25ml/hr, no residual noted at this time, no leaking or oozing noted from newly placed G-tube, patient remains on AC 16, TV: 600, FIO2: 35% with Peep of 5 and remains with saturations at 99-100%. his RR is 16-19 with no distress noted, he remains with clear thick secretions through the trach stoma.
--- NOTE | 2019-04-09 19:00 | NUR ---
RESPIRATORY NOTE:pt recieved on AC 14 600 +5 35%, no SOB or discomfort noted, trach intact, alarms are on and audible vent plugged in red outlet, will continue to monitor the pts progress.
--- NOTE | 2019-04-09 19:25 | NUR ---
HAND-OFF: Report given to ODILIA Schafer tolerating tube feeding at 25ml/hr with no leaking or oozing from G-tube site,
--- NOTE | 2019-04-09 19:26 | NUR ---
NURSE NOTES: Received patient from [facility] Addendum: 04/09/19 at 1999 by YOANA GUALLPA RN RN NURSE NOTES: Received patient from ODILIA Lopez. patient is observed resting in bed, nonverbal, no s/sx of pain noted at this time. vent to trach settings are as follows: Portex: 8, AC: 14, TV: 600, FiO2: 35%, PEEP: 5. no s/sx of respiratory distress noted at this time. G-tube site is patent and intact, running feeding at 25 cc/hr. HOB elevated, no residual noted. IV site is patent and intact, running fluids at prescribed rate. F/C is patent and intact, draining well. bed in lowest position and locked, siderails up X2, call light within reach. will continue to monitor.
[2019-04-09 20:00] VITALS: BP 113/63
--- NOTE | 2019-04-09 23:00 | NUR ---
NURSE NOTES: tube feeding increased to 35 cc/hr. no residual noted, no leaking or oozing noted at this time. will continue to monitor.
[2019-04-10] VITALS: BP 107/63
[2019-04-10 04:00] VITALS: BP 109/62
[2019-04-10] MEDS: Sucralfate 1gm tab GT SCH ×4 (05:20→17:39)
[2019-04-10 05:38] LABS: BASOPHILS % (AUTO) 0.6 % (0.0-2.0); EOSINOPHILS % (AUTO) 4.5 % (0.0-3.0); HEMATOCRIT 26.2 % (42.0-52.0); HEMOGLOBIN 8.4 G/DL (14.2-18.0); LYMPHOCYTES % (AUTO) 17.5 % (20.0-45.0); MEAN CORPUSCULAR VOLUME 88 FL (80-99); MONOCYTES % (AUTO) 13.2 % (1.0-10.0); NEUTROPHILS % (AUTO) 64.3 % (45.0-75.0); PLATELET COUNT 310 K/UL (150-450); RED BLOOD COUNT 2.99 M/UL (4.70-6.10); RED CELL DISTRIBUTION WIDTH 14.1 % (11.6-14.8); WHITE BLOOD COUNT 9.2 K/UL (4.8-10.8)
[2019-04-10 05:47] LABS: ANION GAP 11 mmol/L (5-15); BLOOD UREA NITROGEN 15 mg/dL (7-18); CALCIUM 8.8 MG/DL (8.5-10.1); CARBON DIOXIDE 21 MMOL/L (21-32); CHLORIDE 102 MMOL/L (98-107); POTASSIUM 3.1 MMOL/L (3.5-5.1); SODIUM 133 MMOL/L (136-145)
--- NOTE | 2019-04-10 07:30 | NUR ---
RESPIRATORY NOTE: received pt on vent, trached with portex 8, secured via trach tie/guard. no redness or skin tears visible around stoma. current vent settings in place with no resp distress noted. alarms are set and audible, back up trach and ambu bag at bedside. will cont to monitor.
--- NOTE | 2019-04-10 07:59 | NUR ---
HAND-OFF: Report given to ODILIA Frye. patient is in stable condition.
[2019-04-10 08:00] VITALS: BP 104/57
--- NOTE | 2019-04-10 08:10 | NUR ---
NURSE NOTES: received pt in the bed, obtunded, vent dependent, vital signs stable, no SOB, no co pain, skin warm and dry to touch,tolerate GT feeding well,contracted, Victor catheter with yellow urine, bed in low position, HOB elevated.
[2019-04-10] MEDS: Ascorbic Acid 500mg tab GT SCH (08:54)
--- NOTE | 2019-04-10 09:51 | Hematology/Onc Progress Note ---
Assessment/Plan Assessment/Plan Assessment and Recs: # Upper GI bleed with nausea/vomiting and hemoptysis, labs have been reviewed --> r/o active bleed --> started on protonix --> check h/h q12h or more frequent as needed --> Dr. Wilson has been consulted --> zofran prn basis --> hgb trend 11-->8.6-->8.4-->8.5-->8.4 --> stool ob ordered 04/09 # Leukocytosis with UTI (urinary tract infection) MDR --> monitor for improvement --> trend 24k-->11k-->10.8 --> started on iv antibiotics (cefepime) --> as per id recs # Azotemia with dehydration --> per renal # Hypercalcemia -- on ivf --> per renal and pth (41) # Trach/vent --> as per pulm/cc management Appreciate retirement consultant recs Subjective Constitutional: Denies: no symptoms, chills, fever, malaise, weakness, other HEENT: Denies: no symptoms, eye pain, blurred vision, tearing, double vision, ear pain, ear discharge, nose pain, nose congestion, throat pain, throat swelling, mouth pain, mouth swelling, other Cardiovascular: Denies: no symptoms, chest pain, edema, irregular heart rate, lightheadedness, palpitations, syncope, other Respiratory: Denies: no symptoms, cough, shortness of breath, SOB with excertion, SOB at rest, sputum, wheezing, other Gastrointestinal/Abdominal: Denies: no symptoms, abdomen distended, abdominal pain, black stools, tarry stools, blood in stool, constipated, diarrhea, difficulty swallowing, nausea, poor appetite, poor fluid intake, rectal bleeding , vomiting, other Genitourinary: Denies: no symptoms, burning, discharge, frequency, flank pain, hematuria, incontinence, pain, urgency, other Neurologic/Psychiatric: Denies: no symptoms, anxiety, depressed, emotional problems, headache, numbness, paresthesia, pre-existing deficit, seizure, tingling, tremors, weakness, other Allergies: Coded Allergies: NO KNOWN DRUG ALLERGIES (Verified Allergy, Unknown, 09/11/16) Subjective 04/07: nonverbal, labs reviewed, hgb is lower, no f/c, on vent 04/08: is on ertapenem, no f/c no chills noted, hgb lower 8.4 04/09: s/p g-tube, stool ob collected, results pending, h/h stable, cxr today negative 04/10: no bleeding, no f/c noted, on vent/trach with peg tube feedings Objective Objective Current Medications Medications (Trade) Dose Ordered Sig/Wanda Route PRN Reason Start Time Stop Time Status Last Admin Dose Admin Acetaminophen (Tylenol) 650 mg Q4H PRN GT FEVER (temp>100.5F) 04/08/19 13:45 05/06/19 07:14 Albuterol/ Ipratropium (Albuterol/ Ipratropium) 3 ml Q4H PRN HHN Shortness of Breath 04/06/19 07:15 04/11/19 07:14 Ascorbic Acid (Vitamin C) 250 mg DAILY GT 04/09/19 09:00 05/08/19 08:59 04/10/19 08:54 Cefepime HCl 1 gm/ Dextrose 55 ml @ 110 mls/hr Q24H IVPB 04/08/19 14:00 04/15/19 13:59 04/09/19 13:13 Dextrose (Dextrose 50%) 25 ml Q30M PRN IV Hypoglycemia 04/06/19 07:30 05/06/19 07:27 Dextrose (Dextrose 50%) 50 ml Q30M PRN IV hypoglycemia 04/06/19 07:30 05/06/19 07:29 Dextrose/Sodium Chloride 1,000 ml @ 75 mls/hr [id number] IV 04/09/19 10:15 05/09/19 10:14 04/10/19 00:00 Lansoprazole (Prevacid) 30 mg Q12HR GT 04/06/19 09:00 05/06/19 08:59 04/10/19 08:54 Levothyroxine Sodium (Synthroid) 75 mcg DAILY GT 04/06/19 09:00 05/06/19 08:59 04/10/19 08:54 Lorazepam (Ativan 2mg/ml 1ml) 2 mg Q2H PRN IV For Anxiety 04/06/19 07:15 04/13/19 07:14 Morphine Sulfate (Morphine Sulfate) 4 mg Q4H PRN IVP Severe Pain (Pain Scale 7-10) 04/06/19 07:15 04/13/19 07:14 Ondansetron HCl (Zofran) 4 mg Q6H PRN IVP Nausea & Vomiting 04/06/19 07:15 05/06/19 07:14 Polyethylene Glycol (Miralax) 17 gm DAILYPRN PRN GT Constipation 04/08/19 13:45 05/06/19 07:14 Sucralfate (Carafate) 1 gm Q6HR GT 04/06/19 12:00 05/06/19 11:59 04/10/19 05:20 Zinc Oxide (Zinc Oxide) 1 applic TIDPRN PRN TOPIC around g tube 04/08/19 12:00 05/08/19 11:59 Last 24 Hour Vital Signs Date Time Temp Pulse Resp B/P (MAP) Pulse Ox O2 Delivery O2 Flow Rate FiO2 04/10/19 09:30 65 16 35 04/10/19 08:00 98.2 65 16 104/57 (73) 98 04/10/19 08:00 35 04/10/19 07:27 68 17 35 04/10/19 05:07 63 16 35 04/10/19 04:00 63 04/10/19 04:00 35 04/10/19 04:00 98.5 68 16 109/62 (78) 99 04/10/19 04:00 Mechanical Ventilator 04/10/19 02:53 68 17 35 04/10/19 01:22 62 17 35 04/10/19 00:00 Mechanical Ventilator 04/10/19 00:00 98.7 63 16 107/63 (78) 100 04/10/19 00:00 64 04/09/19 23:00 74 21 35 04/09/19 21:06 72 20 35 04/09/19 20:00 75 04/09/19 20:00 35 04/09/19 20:00 99.3 72 15 113/63 (80) 100 04/09/19 20:00 Mechanical Ventilator 04/09/19 18:43 75 16 35 04/09/19 17:08 78 16 35 04/09/19 16:00 98.6 79 17 133/71 (91) 100 04/09/19 16:00 Mechanical Ventilator 04/09/19 16:00 82 04/09/19 16:00 35 04/09/19 14:52 85 19 35 04/09/19 13:36 88 20 35 04/09/19 12:00 97.7 78 18 138/76 (96) 98 04/09/19 12:00 78 04/09/19 12:00 Mechanical Ventilator 04/09/19 12:00 35 04/09/19 11:06 76 16 35 04/09/19 08:51 74 20 35 04/09/19 08:00 Mechanical Ventilator 04/09/19 08:00 97.9 68 16 132/62 (85) 98 04/09/19 08:00 35 04/09/19 07:46 70 04/09/19 06:32 60 15 35 04/09/19 04:52 77 14 35 04/09/19 04:00 98.1 76 14 123/71 (88) 100 04/09/19 04:00 35 04/09/19 04:00 72 04/09/19 04:00 Mechanical Ventilator 04/09/19 02:48 79 15 35 04/09/19 00:48 84 15 35 04/09/19 00:00 98.6 72 14 136/89 (105) 100 04/09/19 00:00 35 04/09/19 00:00 Mechanical Ventilator 04/09/19 00:00 79 04/08/19 23:06 89 16 35 04/08/19 20:46 81 17 35 04/08/19 20:00 Mechanical Ventilator 04/08/19 20:00 35 04/08/19 20:00 98.5 81 15 120/60 (80) 99 04/08/19 20:00 81 04/08/19 18:35 84 15 35 04/08/19 17:11 74 14 35 04/08/19 16:00 35 04/08/19 16:00 Mechanical Ventilator 04/08/19 16:00 98.6 76 16 140/62 (88) 100 04/08/19 15:24 77 04/08/19 15:02 82 14 35 04/08/19 13:02 77 14 35 04/08/19 12:00 35 04/08/19 12:00 98.1 77 18 111/73 (86) 99 04/08/19 12:00 Mechanical Ventilator 04/08/19 11:45 76 7/30/19 10:47 82 15 35 Intake and Output 04/09/19 04/10/19 19:00 07:00 Intake Total 1290 ml 1350 ml Output Total 1100 ml Balance 190 ml 1350 ml Intake Free Water 205 ml 150 ml IV Total 955 ml 825 ml Tube Feeding 110 ml 375 ml Other 20 ml Output Urine Total 1100 ml # Bowel Movements 2 1 Labs Test 04/08/19 03:20 04/09/19 03:05 04/09/19 13:00 04/10/19 02:55 White Blood Count 10.8 K/UL (4.8-10.8) 9.7 K/UL (4.8-10.8) 9.2 K/UL (4.8-10.8) Red Blood Count 2.94 M/UL (4.70-6.10) 3.03 M/UL (4.70-6.10) 2.99 M/UL (4.70-6.10) Hemoglobin 8.4 G/DL (14.2-18.0) 8.5 G/DL (14.2-18.0) 8.4 G/DL (14.2-18.0) Hematocrit 26.2 % (42.0-52.0) 26.7 % (42.0-52.0) 26.2 % (42.0-52.0) Mean Corpuscular Volume 89 FL (80-99) 88 FL (80-99) 88 FL (80-99) Mean Corpuscular Hemoglobin 28.4 PG (27.0-31.0) 28.2 PG (27.0-31.0) 28.0 PG (27.0-31.0) Mean Corpuscular Hemoglobin Concent 31.9 G/DL (32.0-36.0) 32.0 G/DL (32.0-36.0) 32.0 G/DL (32.0-36.0) Red Cell Distribution Width 15.1 % (11.6-14.8) 14.5 % (11.6-14.8) 14.1 % (11.6-14.8) Platelet Count 309 K/UL (150-450) 333 K/UL (150-450) 310 K/UL (150-450) Mean Platelet Volume 6.6 FL (6.5-10.1) 7.0 FL (6.5-10.1) 6.7 FL (6.5-10.1) Neutrophils (%) (Auto) 69.3 % (45.0-75.0) 68.7 % (45.0-75.0) 64.3 % (45.0-75.0) Lymphocytes (%) (Auto) 17.1 % (20.0-45.0) 16.3 % (20.0-45.0) 17.5 % (20.0-45.0) Monocytes (%) (Auto) 8.9 % (1.0-10.0) 9.2 % (1.0-10.0) 13.2 % (1.0-10.0) Eosinophils (%) (Auto) 3.8 % (0.0-3.0) 5.4 % (0.0-3.0) 4.5 % (0.0-3.0) Basophils (%) (Auto) 0.9 % (0.0-2.0) 0.5 % (0.0-2.0) 0.6 % (0.0-2.0) Sodium Level 136 MMOL/L (136-145) 135 MMOL/L (136-145) 133 MMOL/L (136-145) Potassium Level 4.1 MMOL/L (3.5-5.1) 3.6 MMOL/L (3.5-5.1) 3.1 MMOL/L (3.5-5.1) Chloride Level 104 MMOL/L (98-107) 102 MMOL/L (98-107) 102 MMOL/L (98-107) Carbon Dioxide Level 19 MMOL/L (21-32) 18 MMOL/L (21-32) 21 MMOL/L (21-32) Anion Gap 13 mmol/L (5-15) 15 mmol/L (5-15) 11 mmol/L (5-15) Blood Urea Nitrogen 21 mg/dL (7-18) 16 mg/dL (7-18) 15 mg/dL (7-18) Creatinine 1.1 MG/DL (0.55-1.30) 1.0 MG/DL (0.55-1.30) 1.0 MG/DL (0.55-1.30) Estimat Glomerular Filtration Rate > 60 mL/min (>60) > 60 mL/min (>60) > 60 mL/min (>60) Glucose Level 80 MG/DL (74-106) 66 MG/DL (74-106) 133 MG/DL (74-106) Calcium Level 8.9 MG/DL (8.5-10.1) 8.9 MG/DL (8.5-10.1) 8.8 MG/DL (8.5-10.1) Magnesium Level 2.4 MG/DL (1.8-2.4) 1.8 MG/DL (1.8-2.4) Ferritin 495 NG/ML (8-388) Phosphorus Level 3.3 MG/DL (2.5-4.9) Total Bilirubin 0.4 MG/DL (0.2-1.0) Aspartate Amino Transf (AST/SGOT) 19 U/L (15-37) Alanine Aminotransferase (ALT/SGPT) 17 U/L (12-78) Alkaline Phosphatase 145 U/L (46-116) Total Protein 7.1 G/DL (6.4-8.2) Albumin 2.6 G/DL (3.4-5.0) Globulin 4.5 g/dL Albumin/Globulin Ratio 0.6 (1.0-2.7) Height (Feet): 5 Height (Inches): 6.00 Weight (Pounds): 129 Objective Physical Exam Vitals: reviewed Gen: other - nonverbal Neck: tracheotomy/vent Respiratory: chest non-tender, lungs clear, ++ vent Cv: regular rate, rhythm, no edema Gi: normal bowel sounds, non tender, soft, non-distended, no guarding, no rebound, G-TUBE+ Neurologic: other - nonverbal Psychiatric: other - nonverbal Skin: other - see nursing skin notes Lymphatic: normal inspection Nikos Nath MD Apr 10, 2019 09:51
--- NOTE | 2019-04-10 10:25 | GI Progress Note ---
Assessment/Plan Problems: (1) GT SITE LEAKING (2) Upper GI bleed ICD Codes: K92.2 - Upper gastrointestinal hemorrhage SNOMED: 51895955 (3) Severe protein-calorie malnutrition ICD Codes: E43 - Unspecified severe protein-calorie malnutrition SNOMED: 909397097 (4) Malfunction of gastrostomy tube ICD Codes: K94.23 - Gastrostomy malfunction SNOMED: 541347079 (5) Severe erosive esophagitis Status: stable Status Narrative Discussed with Dr. Wilson. Assessment/Plan EGD only if emergent, stable H&H at this time Wound care consult. GT changed, cont feeding. Monitor H&H, as needed transfusions Prevacid twice daily Carafate IV PO hydration follow labs The patient was seen and examined at bedside and all new and available data was reviewed in the patients chart. I agree with the above findings, impression and plan. (Patient seen earlier today. Signature stamp does not reflect patient encounter time.). - Vitaliy Wilson MD Subjective Subjective limited Objective Last 24 Hour Vital Signs Date Time Temp Pulse Resp B/P (MAP) Pulse Ox O2 Delivery O2 Flow Rate FiO2 04/10/19 09:30 65 16 35 04/10/19 08:00 98.2 65 16 104/57 (73) 98 04/10/19 08:00 35 04/10/19 07:27 68 17 35 04/10/19 05:07 63 16 35 04/10/19 04:00 63 04/10/19 04:00 35 04/10/19 04:00 98.5 68 16 109/62 (78) 99 04/10/19 04:00 Mechanical Ventilator 04/10/19 02:53 68 17 35 04/10/19 01:22 62 17 35 04/10/19 00:00 Mechanical Ventilator 04/10/19 00:00 98.7 63 16 107/63 (78) 100 04/10/19 00:00 64 04/09/19 23:00 74 21 35 04/09/19 21:06 72 20 35 04/09/19 20:00 75 04/09/19 20:00 35 04/09/19 20:00 99.3 72 15 113/63 (80) 100 04/09/19 20:00 Mechanical Ventilator 04/09/19 18:43 75 16 35 04/09/19 17:08 78 16 35 04/09/19 16:00 98.6 79 17 133/71 (91) 100 04/09/19 16:00 Mechanical Ventilator 04/09/19 16:00 82 04/09/19 16:00 35 04/09/19 14:52 85 19 35 04/09/19 13:36 88 20 35 04/09/19 12:00 97.7 78 18 138/76 (96) 98 04/09/19 12:00 78 04/09/19 12:00 Mechanical Ventilator 04/09/19 12:00 35 04/09/19 11:06 76 16 35 Intake and Output 04/09/19 04/10/19 19:00 07:00 Intake Total 1290 ml 1350 ml Output Total 1100 ml Balance 190 ml 1350 ml Intake Free Water 205 ml 150 ml IV Total 955 ml 825 ml Tube Feeding 110 ml 375 ml Other 20 ml Output Urine Total 1100 ml # Bowel Movements 2 1 Laboratory Tests Test 04/09/19 13:00 04/10/19 02:55 Stool Occult Blood Pending White Blood Count 9.2 K/UL (4.8-10.8) Red Blood Count 2.99 M/UL (4.70-6.10) L Hemoglobin 8.4 G/DL (14.2-18.0) L Hematocrit 26.2 % (42.0-52.0) L Mean Corpuscular Volume 88 FL (80-99) Mean Corpuscular Hemoglobin 28.0 PG (27.0-31.0) Mean Corpuscular Hemoglobin Concent 32.0 G/DL (32.0-36.0) Red Cell Distribution Width 14.1 % (11.6-14.8) Platelet Count 310 K/UL (150-450) Mean Platelet Volume 6.7 FL (6.5-10.1) Neutrophils (%) (Auto) 64.3 % (45.0-75.0) Lymphocytes (%) (Auto) 17.5 % (20.0-45.0) L Monocytes (%) (Auto) 13.2 % (1.0-10.0) H Eosinophils (%) (Auto) 4.5 % (0.0-3.0) H Basophils (%) (Auto) 0.6 % (0.0-2.0) Sodium Level 133 MMOL/L (136-145) L Potassium Level 3.1 MMOL/L (3.5-5.1) L Chloride Level 102 MMOL/L (98-107) Carbon Dioxide Level 21 MMOL/L (21-32) Anion Gap 11 mmol/L (5-15) Blood Urea Nitrogen 15 mg/dL (7-18) Creatinine 1.0 MG/DL (0.55-1.30) Estimat Glomerular Filtration Rate > 60 mL/min (>60) Glucose Level 133 MG/DL (74-106) H Calcium Level 8.8 MG/DL (8.5-10.1) Height (Feet): 5 Height (Inches): 6.00 Weight (Pounds): 129 General Appearance: WD/WN, no apparent distress, alert Cardiovascular: normal rate Respiratory/Chest: normal breath sounds, no respiratory distress Abdominal Exam: normal bowel sounds, non tender, soft, GT site - c/d/i Extremities: non-tender Emanuel Quesada NP Apr 10, 2019 10:25
--- NOTE | 2019-04-10 10:49 | Surgery Progress Note ---
Surgery Progress Note Subjective Additional Comments leukocytosis resolved h/h stable electrolytes okay exam unchanged. Objective Last 24 Hour Vital Signs Date Time Temp Pulse Resp B/P (MAP) Pulse Ox O2 Delivery O2 Flow Rate FiO2 04/10/19 09:30 65 16 35 04/10/19 08:00 64 04/10/19 08:00 Mechanical Ventilator 04/10/19 08:00 98.2 65 16 104/57 (73) 98 04/10/19 08:00 35 04/10/19 07:27 68 17 35 04/10/19 05:07 63 16 35 04/10/19 04:00 63 04/10/19 04:00 35 04/10/19 04:00 98.5 68 16 109/62 (78) 99 04/10/19 04:00 Mechanical Ventilator 04/10/19 02:53 68 17 35 04/10/19 01:22 62 17 35 04/10/19 00:00 Mechanical Ventilator 04/10/19 00:00 98.7 63 16 107/63 (78) 100 04/10/19 00:00 64 04/09/19 23:00 74 21 35 04/09/19 21:06 72 20 35 04/09/19 20:00 75 04/09/19 20:00 35 04/09/19 20:00 99.3 72 15 113/63 (80) 100 04/09/19 20:00 Mechanical Ventilator 04/09/19 18:43 75 16 35 04/09/19 17:08 78 16 35 04/09/19 16:00 98.6 79 17 133/71 (91) 100 04/09/19 16:00 Mechanical Ventilator 04/09/19 16:00 82 04/09/19 16:00 35 04/09/19 14:52 85 19 35 04/09/19 13:36 88 20 35 04/09/19 12:00 97.7 78 18 138/76 (96) 98 04/09/19 12:00 78 04/09/19 12:00 Mechanical Ventilator 04/09/19 12:00 35 04/09/19 11:06 76 16 35 I&O Intake and Output 04/09/19 04/10/19 19:00 07:00 Intake Total 1290 ml 1350 ml Output Total 1100 ml Balance 190 ml 1350 ml Intake Free Water 205 ml 150 ml IV Total 955 ml 825 ml Tube Feeding 110 ml 375 ml Other 20 ml Output Urine Total 1100 ml # Bowel Movements 2 1 Dressing: dry Wound: clean Cardiovascular: RSR Respiratory: clear Abdomen: soft, present bowel sounds, non-distended Extremities: no cyanosis Laboratory Tests Test 04/09/19 13:00 04/10/19 02:55 Stool Occult Blood Pending White Blood Count 9.2 K/UL (4.8-10.8) Red Blood Count 2.99 M/UL (4.70-6.10) L Hemoglobin 8.4 G/DL (14.2-18.0) L Hematocrit 26.2 % (42.0-52.0) L Mean Corpuscular Volume 88 FL (80-99) Mean Corpuscular Hemoglobin 28.0 PG (27.0-31.0) Mean Corpuscular Hemoglobin Concent 32.0 G/DL (32.0-36.0) Red Cell Distribution Width 14.1 % (11.6-14.8) Platelet Count 310 K/UL (150-450) Mean Platelet Volume 6.7 FL (6.5-10.1) Neutrophils (%) (Auto) 64.3 % (45.0-75.0) Lymphocytes (%) (Auto) 17.5 % (20.0-45.0) L Monocytes (%) (Auto) 13.2 % (1.0-10.0) H Eosinophils (%) (Auto) 4.5 % (0.0-3.0) H Basophils (%) (Auto) 0.6 % (0.0-2.0) Sodium Level 133 MMOL/L (136-145) L Potassium Level 3.1 MMOL/L (3.5-5.1) L Chloride Level 102 MMOL/L (98-107) Carbon Dioxide Level 21 MMOL/L (21-32) Anion Gap 11 mmol/L (5-15) Blood Urea Nitrogen 15 mg/dL (7-18) Creatinine 1.0 MG/DL (0.55-1.30) Estimat Glomerular Filtration Rate > 60 mL/min (>60) Glucose Level 133 MG/DL (74-106) H Calcium Level 8.8 MG/DL (8.5-10.1) Plan Problems: (1) Severe protein-calorie malnutrition Assessment & Plan: DAILY ESTIMATED NEEDS: Needs based on Critical care, underweight 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 * Swallowing difficulty R/T respiratory status as evidenced by pt vent dep via trach, PEG dep. ENTERAL NUTRITION RECOMMENDATIONS: Osmolite 1.5 @ 55ml/hr x 22 hrs + Prosource x1 daily to provide 1210ml, 1815kcal, 76g+11g prot, 922ml free water * As medically able, rec starting Osmolite 1.5 @ 25ml/hr for 6 hrs, advance as tolerated to goal. * Add Prosource x 1 pack daily. * HOLD TF 1h before and 1 after Synthroid administration. * Water flush 150ml q 6 hrs/ HOB over 30 degrees ------- ADDITIONAL RECOMMENDATIONS: * Calibrated bedscale weight for accurate CBW + weekly wt monitoring * Wound care: Add JOYCELYN BID via GT Add Vit C 250mg daily via GT (2) Upper GI bleed Assessment & Plan: Patient presented with coffee ground emesis, anemia, leukocytosis history of erosive esophagitis prior endoscopy notes reviewed GI note noted recommend PPI scope as per GI trend labs (3) Malfunction of gastrostomy tube Assessment & Plan: Patient pulls tube intermittently g tube site wound has improved since last admission site clean and needs to be monitored / maintained no significant leak today will apply silver nitrate as needed to wound to allow for healing - applied zinc oxide around wound prn will follow wound to ensure healing (4) GT SITE LEAKING Quirino Bernard Apr 10, 2019 10:49
[2019-04-10] MEDS ORDERED: Sterile Water Irrig 1000ml IRRIG ONE (10:50)
[2019-04-10] MEDS ORDERED: D5 1/2NS 1000ml IV ONE (10:50)
[2019-04-10] MEDS ORDERED: Tubing IV Secondary IV ONE (10:50)
--- NOTE | 2019-04-10 11:19 | Pulmonolgy Critical Care Note ---
Critical Care - Asmt/Plan Problems: (1) Septic shock (2) Respiratory failure, [id number] (3) Acute encephalopathy (4) UTI (urinary tract infection) (5) Alzheimer's dementia (6) Severe erosive esophagitis (7) Feeding by G-tube (8) Severe protein-calorie malnutrition Respiratory: monitor respiratory rate Cardiac: continue to monitor HR/BP Renal: F/U I&O, keep IV fluid, check electrolytes Infectious Disease: check cultures Gastrointestinal: continue feedings/current rate Endocrine: monitor blood sugar, check HgA1C Hematologic: transfuse if hgb<8.5 Neurologic: PRN Ativan, keep patient comfortable Prophylaxis: Protonix Disposition: keep in ICU Time Spent (Minutes): 40 Notes 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, 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 with: nurses, consultants, pillowcase makerinternal audit senior manager - Objective Last 24 Hour Vital Signs Date Time Temp Pulse Resp B/P (MAP) Pulse Ox O2 Delivery O2 Flow Rate FiO2 04/10/19 10:54 64 14 35 04/10/19 09:30 65 16 35 04/10/19 08:00 64 04/10/19 08:00 Mechanical Ventilator 04/10/19 08:00 98.2 65 16 104/57 (73) 98 04/10/19 08:00 35 04/10/19 07:27 68 17 35 04/10/19 05:07 63 16 35 04/10/19 04:00 63 04/10/19 04:00 35 04/10/19 04:00 98.5 68 16 109/62 (78) 99 04/10/19 04:00 Mechanical Ventilator 04/10/19 02:53 68 17 35 04/10/19 01:22 62 17 35 04/10/19 00:00 Mechanical Ventilator 04/10/19 00:00 98.7 63 16 107/63 (78) 100 04/10/19 00:00 64 04/09/19 23:00 74 21 35 04/09/19 21:06 72 20 35 04/09/19 20:00 75 04/09/19 20:00 35 04/09/19 20:00 99.3 72 15 113/63 (80) 100 04/09/19 20:00 Mechanical Ventilator 04/09/19 18:43 75 16 35 04/09/19 17:08 78 16 35 04/09/19 16:00 98.6 79 17 133/71 (91) 100 04/09/19 16:00 Mechanical Ventilator 04/09/19 16:00 82 04/09/19 16:00 35 04/09/19 14:52 85 19 35 04/09/19 13:36 88 20 35 04/09/19 12:00 97.7 78 18 138/76 (96) 98 04/09/19 12:00 78 04/09/19 12:00 Mechanical Ventilator 04/09/19 12:00 35 Status: awake Condition: critical HEENT: atraumatic Lungs: clear Abdomen: soft Extremities: no C/C/E Critical Care - Subjective ROS Limited/Unobtainable: No Condition: critical EKG Rhythm: Sinus Bradycardia FI02: 35 Vent Support Breath Rate: 14 Vent Support Mode: AC Vent Tidal Volume: 600 Sputum Amount: Moderate PEEP: 5.0 PIP: 26 Tube Feeding Amount: 45 I&O: Intake and Output 04/09/19 04/10/19 19:00 07:00 Intake Total 1290 ml 1350 ml Output Total 1100 ml Balance 190 ml 1350 ml Intake Free Water 205 ml 150 ml IV Total 955 ml 825 ml Tube Feeding 110 ml 375 ml Other 20 ml Output Urine Total 1100 ml # Bowel Movements 2 1 CXR: no change Labs: Laboratory Tests Test 04/09/19 13:00 04/10/19 02:55 Stool Occult Blood Pending White Blood Count 9.2 K/UL (4.8-10.8) Red Blood Count 2.99 M/UL (4.70-6.10) L Hemoglobin 8.4 G/DL (14.2-18.0) L Hematocrit 26.2 % (42.0-52.0) L Mean Corpuscular Volume 88 FL (80-99) Mean Corpuscular Hemoglobin 28.0 PG (27.0-31.0) Mean Corpuscular Hemoglobin Concent 32.0 G/DL (32.0-36.0) Red Cell Distribution Width 14.1 % (11.6-14.8) Platelet Count 310 K/UL (150-450) Mean Platelet Volume 6.7 FL (6.5-10.1) Neutrophils (%) (Auto) 64.3 % (45.0-75.0) Lymphocytes (%) (Auto) 17.5 % (20.0-45.0) L Monocytes (%) (Auto) 13.2 % (1.0-10.0) H Eosinophils (%) (Auto) 4.5 % (0.0-3.0) H Basophils (%) (Auto) 0.6 % (0.0-2.0) Sodium Level 133 MMOL/L (136-145) L Potassium Level 3.1 MMOL/L (3.5-5.1) L Chloride Level 102 MMOL/L (98-107) Carbon Dioxide Level 21 MMOL/L (21-32) Anion Gap 11 mmol/L (5-15) Blood Urea Nitrogen 15 mg/dL (7-18) Creatinine 1.0 MG/DL (0.55-1.30) Estimat Glomerular Filtration Rate > 60 mL/min (>60) Glucose Level 133 MG/DL (74-106) H Calcium Level 8.8 MG/DL (8.5-10.1) Huma Keating MD Apr 10, 2019 11:19
[2019-04-10 12:00] VITALS: BP 114/50
[2019-04-10] MEDS: D5 1/2NS 1,000 ML IV SCH ×2 (12:34)
--- NOTE | 2019-04-10 13:00 | NUR ---
FOSTER CARE THERAPISTMONOTYPE SETTER SI: RESP FAILURE TRACH/VENT DEPENDENT,GI BLEED T. 98.2 HR 65 RR 16 B/P 117/50 AC 14 TV 600 FIO2 35% PEEP 5 NA 133 K 3.1 IS: IVF D5NS @ 75ML/HR CEFEPIME IV KCL GT X 1 ALB INLINE TX STEP DOWN STATUS
--- NOTE | 2019-04-10 13:00 | NUR ---
NURSE NOTES: vital signs stable, no SOB, K 3.1, 40 meq of KCL given as ordered, continue monitoring.
--- NOTE | 2019-04-10 13:36 | General Progress Note ---
Assessment/Plan Problem List: (1) Diabetes ICD Codes: E11.9 - Type 2 diabetes mellitus without complications SNOMED: 93569589 (2) HTN (hypertension) ICD Codes: I10 - Essential (primary) hypertension SNOMED: 88256618 (3) CVA (cerebral vascular accident) ICD Codes: I63.9 - Cerebral infarction, unspecified SNOMED: 329027442 (4) Respiratory failure, [id number] ICD Codes: J96.20 - Respiratory failure, [id number] SNOMED: 53354319 (5) Upper GI bleed ICD Codes: K92.2 - Upper gastrointestinal hemorrhage SNOMED: 51915015 Status: stable, progressing Assessment/Plan: vent abx bp bs control cbc bmp am Subjective Constitutional: Reports: weakness Allergies: Coded Allergies: NO KNOWN DRUG ALLERGIES (Verified Allergy, Unknown, 09/11/16) All Systems: reviewed and negative except above Subjective trach vent altered Objective Last 24 Hour Vital Signs Date Time Temp Pulse Resp B/P (MAP) Pulse Ox O2 Delivery O2 Flow Rate FiO2 04/10/19 12:00 98.2 65 16 114/50 (71) 98 04/10/19 12:00 Mechanical Ventilator 04/10/19 12:00 35 04/10/19 10:54 64 14 35 04/10/19 09:30 65 16 35 04/10/19 08:00 64 04/10/19 08:00 Mechanical Ventilator 04/10/19 08:00 98.2 65 16 104/57 (73) 98 04/10/19 08:00 35 04/10/19 07:27 68 17 35 04/10/19 05:07 63 16 35 04/10/19 04:00 63 04/10/19 04:00 35 04/10/19 04:00 98.5 68 16 109/62 (78) 99 04/10/19 04:00 Mechanical Ventilator 04/10/19 02:53 68 17 35 04/10/19 01:22 62 17 35 04/10/19 00:00 Mechanical Ventilator 04/10/19 00:00 98.7 63 16 107/63 (78) 100 04/10/19 00:00 64 04/09/19 23:00 74 21 35 04/09/19 21:06 72 20 35 04/09/19 20:00 75 04/09/19 20:00 35 04/09/19 20:00 99.3 72 15 113/63 (80) 100 04/09/19 20:00 Mechanical Ventilator 04/09/19 18:43 75 16 35 04/09/19 17:08 78 16 35 04/09/19 16:00 98.6 79 17 133/71 (91) 100 04/09/19 16:00 Mechanical Ventilator 04/09/19 16:00 82 04/09/19 16:00 35 04/09/19 14:52 85 19 35 04/09/19 13:36 88 20 35 Intake and Output 04/09/19 04/10/19 19:00 07:00 Intake Total 1290 ml 1350 ml Output Total 1100 ml Balance 190 ml 1350 ml Intake Free Water 205 ml 150 ml IV Total 955 ml 825 ml Tube Feeding 110 ml 375 ml Other 20 ml Output Urine Total 1100 ml # Bowel Movements 2 1 Laboratory Tests 04/10/19 02:55: White Blood Count 9.2, Red Blood Count 2.99L, Hemoglobin 8.4L, Hematocrit 26.2L , Mean Corpuscular Volume 88, Mean Corpuscular Hemoglobin 28.0, Mean Corpuscular Hemoglobin Concent 32.0, Red Cell Distribution Width 14.1, Platelet Count 310, Mean Platelet Volume 6.7, Neutrophils (%) (Auto) 64.3, Lymphocytes (% ) (Auto) 17.5L, Monocytes (%) (Auto) 13.2H, Eosinophils (%) (Auto) 4.5H, Basophils (%) (Auto) 0.6, Sodium Level 133L, Potassium Level 3.1L, Chloride Level 102, Carbon Dioxide Level 21, Anion Gap 11, Blood Urea Nitrogen 15, Creatinine 1.0, Estimat Glomerular Filtration Rate > 60, Glucose Level 133H, Calcium Level 8.8 Height (Feet): 5 Height (Inches): 6.00 Weight (Pounds): 129 General Appearance: lethargic EENT: normal ENT inspection Neck: normal alignment Cardiovascular: normal peripheral pulses, normal rate, regular rhythm Respiratory/Chest: chest wall non-tender, lungs clear, normal breath sounds Abdomen: normal bowel sounds, non tender, soft Extremities: normal inspection Edema: no edema noted Arm (L), no edema noted Arm (R), no edema noted Leg (L), no edema noted Leg (R), no edema noted Pedal (L), no edema noted Pedal (R), no edema noted Generalized Neurologic: motor weakness Skin: normal pigmentation, warm/dry Gato Viveros DO Apr 10, 2019 13:35
--- NOTE | 2019-04-10 13:38 | Infectious Diseases Prog Note ---
Assessment/Plan Assessment/Plan Assessment: Probable Sepsis vs SIRS (due to GIB) -04/09CXR: No acute findings =04/07 Sp cx MDR/CRE K. pna (I Imipenem, Amikacin, Gentamycin; S Tigecycline, Colistin, Polymixin B), ESBL E.coli, MDR ABC ( S imipenem); likely colonizers -Bcx NTD -04/05 CXR: No acute findings. Probable UTI -u/a wbc tnct, nit neg, leuk +3; ucx 40-50k P.stuarti (S Ceftriaxone, Zosyn, Ertapenem) Afebrile Leukocytosis, SP hx of infected obstuctive ureterolithiasis/w abscess s/p L NT placed 12/2018 s/p 1 month Ertapenem -sp L NT exchange 02/2019 hx of UTI - Urine Cx 02/15/19 - Proteus - Sen to Sherly and amik - ESBL UTI 07/2018 Hx Constipation Chronic respiratory failure trach/vent dependant Hypothyroidism GERD Hypertension Hx C. diff Dysphagia s/p G-tube Anemia. CVA/TIA w/ hemiplegia functional quadriplegia chronic encephalopathy CAD CHF Asthma Dm2 GIB s/p multiple EGDs in the past hx of diffuse ulcerative esophagitis, peptic esophageal stricture (EGD Jul 2018 ) schizoaffective disease senior living resident multiple admissions hx of VRE colonization malnutrition Plan: -Continue Cefepime #3 (abx d #/-10 for P. stuarti UTI) -MDROs in sputum likely colonizers -04/08 SP Ertapenem #3 -04/07 SP IV Vancomycin #2 - 02/22/19 SP meropenem #7 and vancomcyin #7 - 02/19/19 SP vancomcyin #4 - S/p Melita.Erta x 1 month - 12/23/18 SP Zosyn #11, inhaled colistin #8 for MDR P.a.for sputum organism and Fluconazole #7 for Yeast it the urine - 12/12 S/P Vancomycin and Cefepime #5 -12/08 SP Levaquin x1 -11/06 SP Amikacin #6 -11/01 SP Meropenem #4 -10/29 SP IV Vanco #2, Cefepime #2 and Tigecycline #1 -10/28 SP LEavquin x1 -10/09 SP Ertapenem #5 - 10/04 SP Meropenem #2 -10/03/18 SP IV Vancomycin #2 and Cefepime #2 -08/09/18 SP Bactrim #7 -08/03 SP Vancomycin and Cefepime #3 -08/01/18 SP Ceftriaxone x1 -f/u cx -Monitor CBC/CMP, temperatures -Peg/trach care -aspiration precautions -f/u Bcx x2 -GI f.u Thank you for this consultation. Will continue to follow along with you. Discussed with RN. Subjective Allergies: Coded Allergies: NO KNOWN DRUG ALLERGIES (Verified Allergy, Unknown, 09/11/16) Subjective afebrile no leukocytosis Bcx NTD Objective Vital Signs Last 24 Hour Vital Signs Date Time Temp Pulse Resp B/P (MAP) Pulse Ox O2 Delivery O2 Flow Rate FiO2 04/10/19 12:00 98.2 65 16 114/50 (71) 98 04/10/19 12:00 Mechanical Ventilator 04/10/19 12:00 35 04/10/19 10:54 64 14 35 04/10/19 09:30 65 16 35 04/10/19 08:00 64 04/10/19 08:00 Mechanical Ventilator 04/10/19 08:00 98.2 65 16 104/57 (73) 98 04/10/19 08:00 35 04/10/19 07:27 68 17 35 04/10/19 05:07 63 16 35 04/10/19 04:00 63 04/10/19 04:00 35 04/10/19 04:00 98.5 68 16 109/62 (78) 99 04/10/19 04:00 Mechanical Ventilator 04/10/19 02:53 68 17 35 04/10/19 01:22 62 17 35 04/10/19 00:00 Mechanical Ventilator 04/10/19 00:00 98.7 63 16 107/63 (78) 100 04/10/19 00:00 64 04/09/19 23:00 74 21 35 04/09/19 21:06 72 20 35 04/09/19 20:00 75 04/09/19 20:00 35 04/09/19 20:00 99.3 72 15 113/63 (80) 100 04/09/19 20:00 Mechanical Ventilator 04/09/19 18:43 75 16 35 04/09/19 17:08 78 16 35 04/09/19 16:00 98.6 79 17 133/71 (91) 100 04/09/19 16:00 Mechanical Ventilator 04/09/19 16:00 82 04/09/19 16:00 35 04/09/19 14:52 85 19 35 04/09/19 13:36 88 20 35 Height (Feet): 5 Height (Inches): 6.00 Weight (Pounds): 129 Objective General Appearance: cachetic, thin Lines, tubes and drains: peripheral HEENT: normocephalic, atraumatic Respiratory/Chest: chest wall non-tender, lungs clear Breasts: no masses Cardiovascular/Chest: normal peripheral pulses, normal rate Abdomen: normal bowel sounds Extremities: normal range of motion Laboratory Tests Test 04/10/19 02:55 White Blood Count 9.2 K/UL (4.8-10.8) Red Blood Count 2.99 M/UL (4.70-6.10) L Hemoglobin 8.4 G/DL (14.2-18.0) L Hematocrit 26.2 % (42.0-52.0) L Mean Corpuscular Volume 88 FL (80-99) Mean Corpuscular Hemoglobin 28.0 PG (27.0-31.0) Mean Corpuscular Hemoglobin Concent 32.0 G/DL (32.0-36.0) Red Cell Distribution Width 14.1 % (11.6-14.8) Platelet Count 310 K/UL (150-450) Mean Platelet Volume 6.7 FL (6.5-10.1) Neutrophils (%) (Auto) 64.3 % (45.0-75.0) Lymphocytes (%) (Auto) 17.5 % (20.0-45.0) L Monocytes (%) (Auto) 13.2 % (1.0-10.0) H Eosinophils (%) (Auto) 4.5 % (0.0-3.0) H Basophils (%) (Auto) 0.6 % (0.0-2.0) Sodium Level 133 MMOL/L (136-145) L Potassium Level 3.1 MMOL/L (3.5-5.1) L Chloride Level 102 MMOL/L (98-107) Carbon Dioxide Level 21 MMOL/L (21-32) Anion Gap 11 mmol/L (5-15) Blood Urea Nitrogen 15 mg/dL (7-18) Creatinine 1.0 MG/DL (0.55-1.30) Estimat Glomerular Filtration Rate > 60 mL/min (>60) Glucose Level 133 MG/DL (74-106) H Calcium Level 8.8 MG/DL (8.5-10.1) Current Medications Medications (Trade) Dose Ordered Sig/Wanda Route PRN Reason Start Time Stop Time Status Last Admin Dose Admin Acetaminophen (Tylenol) 650 mg Q4H PRN GT FEVER (temp>100.5F) 04/08/19 13:45 05/06/19 07:14 Albuterol/ Ipratropium (Albuterol/ Ipratropium) 3 ml Q4H PRN HHN Shortness of Breath 04/06/19 07:15 04/11/19 07:14 Ascorbic Acid (Vitamin C) 250 mg DAILY GT 04/09/19 09:00 05/08/19 08:59 04/10/19 08:54 Cefepime HCl 1 gm/ Dextrose 55 ml @ 110 mls/hr Q24H IVPB 04/08/19 14:00 04/15/19 13:59 04/09/19 13:13 Dextrose (Dextrose 50%) 25 ml Q30M PRN IV Hypoglycemia 04/06/19 07:30 05/06/19 07:27 Dextrose (Dextrose 50%) 50 ml Q30M PRN IV hypoglycemia 04/06/19 07:30 05/06/19 07:29 Dextrose/Sodium Chloride 1,000 ml @ 75 mls/hr [id number] IV 04/09/19 10:15 05/09/19 10:14 04/10/19 12:34 Lansoprazole (Prevacid) 30 mg Q12HR GT 04/06/19 09:00 05/06/19 08:59 04/10/19 08:54 Levothyroxine Sodium (Synthroid) 75 mcg DAILY GT 04/06/19 09:00 05/06/19 08:59 04/10/19 08:54 Lorazepam (Ativan 2mg/ml 1ml) 2 mg Q2H PRN IV For Anxiety 04/06/19 07:15 04/13/19 07:14 Morphine Sulfate (Morphine Sulfate) 4 mg Q4H PRN IVP Severe Pain (Pain Scale 7-10) 04/06/19 07:15 04/13/19 07:14 Ondansetron HCl (Zofran) 4 mg Q6H PRN IVP Nausea & Vomiting 04/06/19 07:15 05/06/19 07:14 Polyethylene Glycol (Miralax) 17 gm DAILYPRN PRN GT Constipation 04/08/19 13:45 05/06/19 07:14 Sucralfate (Carafate) 1 gm Q6HR GT 04/06/19 12:00 05/06/19 11:59 04/10/19 12:32 Zinc Oxide (Zinc Oxide) 1 applic TIDPRN PRN TOPIC around g tube 04/08/19 12:00 05/08/19 11:59 Lisy Lai M.D. Apr 10, 2019 13:38
--- NOTE | 2019-04-10 14:14 | NUR ---
*-* INSURANCE *-* CLINICALS AND REVIEWS HAVE BEEN FAXED TO: [employer] [facility] [phone]
[2019-04-10] MEDS: Cefepime HCl 1 GM in D5W 55 ML IVPB SCH (14:59)
--- NOTE | 2019-04-10 15:34 | NUR ---
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 * Swallowing difficulty R/T respiratory status as evidenced by pt vent dep via trach, PEG dep. CURRENT TF:Osmolite 1.5 @ 55ml/hr x 22 hrs ENTERAL NUTRITION RECOMMENDATIONS: Osmolite 1.5 @ 55ml/hr x 22 hrs to provide 1210ml, 1815kcal, 76g prot, 922ml free water * Maintain current TF * HOLD TF 1h before and 1 after Synthroid administration. * Water flush 150ml q 6 hrs/ HOB over 30 degrees ADDITIONAL RECOMMENDATIONS: * Calibrated bedscale weight for accurate CBW + weekly wt monitoring * Wound care: Add JOYCELYN BID via GT Continue Vit C 250mg daily via GT * DC D5 IVF -> hyponatremia * Monitor lytes, replete as needed (low K) . .
[2019-04-10 16:00] VITALS: BP 113/56
--- NOTE | 2019-04-10 19:33 | NUR ---
HAND-OFF: Report given to VERONICA HARTLEY.
--- NOTE | 2019-04-10 19:34 | NUR ---
NURSE NOTES: Received bedside report from ODILIA Frye.Patient stable,obtunded,open eyes,SR on property assessment monitor,no s/s of pain,no respiratory distress at this moment,Portex 8 AC 14 TV 600 FiO2 35% PEEP 5,GT running with Osmolite 1.5 @ 55 ml/hr no residual,IV asymptomatic,intact on R EJ G 18 running with D 5 1/2 NS @ 75 ml/hr,BS active in all quadrants,bed secured in a low safety position,call light within a reach will continue to monitor and follow POC.
[2019-04-10 20:00] VITALS: BP 129/80
[2019-04-11] VITALS: BP 129/80
[2019-04-11] MEDS: Sucralfate 1gm tab GT SCH ×4 (00:02→17:36)
[2019-04-11] MEDS: D5 1/2NS 1,000 ML IV SCH ×2 (02:31→14:53)
[2019-04-11 04:00] VITALS: BP 120/68
[2019-04-11 04:56] LABS: BASOPHILS % (AUTO) 0.9 % (0.0-2.0); EOSINOPHILS % (AUTO) 4.8 % (0.0-3.0); HEMATOCRIT 27.2 % (42.0-52.0); HEMOGLOBIN 8.7 G/DL (14.2-18.0); LYMPHOCYTES % (AUTO) 17.8 % (20.0-45.0); MEAN CORPUSCULAR VOLUME 87 FL (80-99); MONOCYTES % (AUTO) 12.4 % (1.0-10.0); NEUTROPHILS % (AUTO) 64.1 % (45.0-75.0); PLATELET COUNT 322 K/UL (150-450); RED BLOOD COUNT 3.12 M/UL (4.70-6.10); RED CELL DISTRIBUTION WIDTH 14.8 % (11.6-14.8)
[2019-04-11 05:16] LABS: ALANINE AMINOTRANSFERASE 17 U/L (12-78); ALBUMIN 2.5 G/DL (3.4-5.0); ALBUMIN/GLOBULIN RATIO 0.6 (1.0-2.7); ALKALINE PHOSPHATASE 139 U/L (46-116); ANION GAP 8 mmol/L (5-15); ASPARTATE AMINO TRANSFERASE 14 U/L (15-37); BILIRUBIN,TOTAL 0.2 MG/DL (0.2-1.0); BLOOD UREA NITROGEN 14 mg/dL (7-18); CALCIUM 8.5 MG/DL (8.5-10.1); CARBON DIOXIDE 23 MMOL/L (21-32); CHLORIDE 104 MMOL/L (98-107); CREATININE 0.9 MG/DL (0.55-1.30); POTASSIUM 4.1 MMOL/L (3.5-5.1); SODIUM 135 MMOL/L (136-145)
--- NOTE | 2019-04-11 06:21 | NUR ---
NURSE NOTES: notified regarding Mg 1.7,charge nurse aware.Will endorse next shift.
--- NOTE | 2019-04-11 07:19 | NUR ---
HAND-OFF: Report given to ODILIA Guerrero.Patient stable,sleeping.
--- NOTE | 2019-04-11 07:25 | NUR ---
NURSE NOTES: Received report from ODILIA Gurrola. Patient is resting in bed in stable condition. No s/sx of SOB, breathing is even and unlabored, Vent settings are as ordered. Bed is in lowest position, brakes engaged. Observed no presence of pain or discomfort at this time. Call light is kept within easy reach. Will continue to monitor patient.
[2019-04-11 08:00] VITALS: BP 127/85
--- NOTE | 2019-04-11 08:22 | General Progress Note ---
Assessment/Plan Problem List: (1) Diabetes ICD Codes: E11.9 - Type 2 diabetes mellitus without complications SNOMED: 99366070 (2) HTN (hypertension) ICD Codes: I10 - Essential (primary) hypertension SNOMED: 53085823 (3) CVA (cerebral vascular accident) ICD Codes: I63.9 - Cerebral infarction, unspecified SNOMED: 040367500 (4) Respiratory failure, [id number] ICD Codes: J96.20 - Respiratory failure, tsfxp-qv-ywskhci SNOMED: 59871560 (5) Upper GI bleed ICD Codes: K92.2 - Upper gastrointestinal hemorrhage SNOMED: 97732386 Status: stable, progressing Assessment/Plan: vent abx bp bs control cbc bmp am Subjective Constitutional: Reports: weakness Allergies: Coded Allergies: NO KNOWN DRUG ALLERGIES (Verified Allergy, Unknown, 09/11/16) All Systems: reviewed and negative except above Subjective trach vent altered Objective Last 24 Hour Vital Signs Date Time Temp Pulse Resp B/P (MAP) Pulse Ox O2 Delivery O2 Flow Rate FiO2 04/11/19 06:52 90 24 35 04/11/19 04:51 82 16 35 04/11/19 04:00 35 04/11/19 04:00 Mechanical Ventilator 04/11/19 04:00 98.1 89 16 120/68 (85) 95 04/11/19 03:50 82 04/11/19 02:47 86 16 35 04/11/19 01:12 90 17 35 04/11/19 00:00 98.1 74 18 129/80 (96) 99 04/11/19 00:00 Mechanical Ventilator 04/10/19 23:34 78 04/10/19 23:00 78 18 35 04/10/19 21:18 68 15 35 04/10/19 20:00 98.2 73 15 129/80 (96) 100 04/10/19 20:00 Mechanical Ventilator 04/10/19 20:00 35 04/10/19 19:31 70 04/10/19 18:34 70 17 98 Mechanical Ventilator 50 04/10/19 18:32 70 17 35 04/10/19 17:03 69 15 35 04/10/19 16:00 65 04/10/19 16:00 35 04/10/19 16:00 98.3 73 17 113/56 (75) 98 04/10/19 16:00 Mechanical Ventilator 04/10/19 15:22 68 14 35 04/10/19 13:35 67 14 35 04/10/19 12:00 98.2 65 16 114/50 (71) 98 04/10/19 12:00 Mechanical Ventilator 04/10/19 12:00 35 04/10/19 12:00 63 04/10/19 10:54 64 14 35 04/10/19 09:30 65 16 35 Intake and Output 04/10/19 04/11/19 19:00 07:00 Intake Total 1513 ml 1567.5 ml Output Total 750 ml 450 ml Balance 763 ml 1117.5 ml Intake Free Water 150 ml 100 ml IV Total 843 ml 862.5 ml Tube Feeding 520 ml 605 ml Output Urine Total 750 ml 450 ml # Bowel Movements 3 3 Laboratory Tests 04/11/19 03:28: White Blood Count 10.0, Red Blood Count 3.12L, Hemoglobin 8.7L, Hematocrit 27.2L , Mean Corpuscular Volume 87, Mean Corpuscular Hemoglobin 28.0, Mean Corpuscular Hemoglobin Concent 32.1, Red Cell Distribution Width 14.8, Platelet Count 322, Mean Platelet Volume 6.9, Neutrophils (%) (Auto) 64.1, Lymphocytes (% ) (Auto) 17.8L, Monocytes (%) (Auto) 12.4H, Eosinophils (%) (Auto) 4.8H, Basophils (%) (Auto) 0.9, Sodium Level 135L, Potassium Level 4.1, Chloride Level 104, Carbon Dioxide Level 23, Anion Gap 8, Blood Urea Nitrogen 14, Creatinine 0.9, Estimat Glomerular Filtration Rate > 60, Glucose Level 119H, Calcium Level 8.5, Phosphorus Level 2.0L, Magnesium Level 1.7L, Total Bilirubin 0.2, Aspartate Amino Transf (AST/SGOT) 14L, Alanine Aminotransferase (ALT/SGPT) 17, Alkaline Phosphatase 139H, Total Protein 6.8, Albumin 2.5L, Globulin 4.3, Albumin/Globulin Ratio 0.6L Height (Feet): 5 Height (Inches): 6.00 Weight (Pounds): 129 General Appearance: lethargic EENT: normal ENT inspection Neck: normal alignment Cardiovascular: normal peripheral pulses, normal rate, regular rhythm Respiratory/Chest: chest wall non-tender, lungs clear, normal breath sounds Abdomen: normal bowel sounds, non tender, soft Extremities: normal inspection Edema: no edema noted Arm (L), no edema noted Arm (R), no edema noted Leg (L), no edema noted Leg (R), no edema noted Pedal (L), no edema noted Pedal (R), no edema noted Generalized Neurologic: motor weakness Skin: normal pigmentation, warm/dry Gato Viveros Apr 11, 2019 08:22
[2019-04-11] MEDS: Ascorbic Acid 500mg tab GT SCH (08:26)
--- NOTE | 2019-04-11 08:51 | Hematology/Onc Progress Note ---
Assessment/Plan Assessment/Plan Assessment and Recs: # Upper GI bleed with nausea/vomiting and hemoptysis, labs have been reviewed --> r/o active bleed, occult blood+ --> started on protonix --> check h/h q12h or more frequent as needed --> Dr. Wilson has been consulted --> zofran prn basis --> hgb trend 11-->8.6-->8.4-->8.5-->8.4-->8.7 # Leukocytosis with UTI (urinary tract infection) MDR --> monitor for improvement --> trend 24k-->11k-->10.8-->10 --> started on iv antibiotics (cefepime) --> as per id recs # Azotemia with dehydration --> per renal # Hypercalcemia -- on ivf --> per renal and pth (41) # Trach/vent --> as per pulm/cc management Appreciate decorator consultant recs Subjective Constitutional: Denies: no symptoms, chills, fever, malaise, weakness, other Cardiovascular: Denies: no symptoms, chest pain, edema, irregular heart rate, lightheadedness, palpitations, syncope, other Respiratory: Denies: no symptoms, cough, shortness of breath, SOB with excertion, SOB at rest, sputum, wheezing, other Gastrointestinal/Abdominal: Denies: no symptoms, abdomen distended, abdominal pain, black stools, tarry stools, blood in stool, constipated, diarrhea, difficulty swallowing, nausea, poor appetite, poor fluid intake, rectal bleeding , vomiting, other Genitourinary: Denies: no symptoms, burning, discharge, frequency, flank pain, hematuria, incontinence, pain, urgency, other Endocrine: Denies: no symptoms, excessive sweating, flushing, intolerance to cold, intolerance to heat, increased hunger, increased thirst, increased urine, unexplained weight gain, unexplained weight loss, other Allergies: Coded Allergies: NO KNOWN DRUG ALLERGIES (Verified Allergy, Unknown, 09/11/16) Subjective 04/07: nonverbal, labs reviewed, hgb is lower, no f/c, on vent 04/08: is on ertapenem, no f/c no chills noted, hgb lower 8.4 04/09: s/p g-tube, stool ob collected, results pending, h/h stable, cxr today negative 04/10: no bleeding, no f/c noted, on vent/trach with peg tube feedings 04/11: on vent, no changes, no bleeding, no f/c Objective Objective Current Medications Medications (Trade) Dose Ordered Sig/Wanda Route PRN Reason Start Time Stop Time Status Last Admin Dose Admin Acetaminophen (Tylenol) 650 mg Q4H PRN GT FEVER (temp>100.5F) 04/08/19 13:45 05/06/19 07:14 Ascorbic Acid (Vitamin C) 250 mg DAILY GT 04/09/19 09:00 05/08/19 08:59 04/11/19 08:26 Cefepime HCl 1 gm/ Dextrose 55 ml @ 110 mls/hr Q24H IVPB 04/08/19 14:00 04/15/19 13:59 04/10/19 14:59 Dextrose (Dextrose 50%) 25 ml Q30M PRN IV Hypoglycemia 04/06/19 07:30 05/06/19 07:27 Dextrose (Dextrose 50%) 50 ml Q30M PRN IV hypoglycemia 04/06/19 07:30 05/06/19 07:29 Dextrose/Sodium Chloride 1,000 ml @ 75 mls/hr [id number] IV 04/09/19 10:15 05/09/19 10:14 04/11/19 02:31 Lansoprazole (Prevacid) 30 mg Q12HR GT 04/06/19 09:00 05/06/19 08:59 04/11/19 08:26 Levothyroxine Sodium (Synthroid) 75 mcg DAILY GT 04/06/19 09:00 05/06/19 08:59 04/11/19 08:26 Lorazepam (Ativan 2mg/ml 1ml) 2 mg Q2H PRN IV For Anxiety 04/06/19 07:15 04/13/19 07:14 Morphine Sulfate (Morphine Sulfate) 4 mg Q4H PRN IVP Severe Pain (Pain Scale 7-10) 04/06/19 07:15 04/13/19 07:14 Ondansetron HCl (Zofran) 4 mg Q6H PRN IVP Nausea & Vomiting 04/06/19 07:15 05/06/19 07:14 Polyethylene Glycol (Miralax) 17 gm DAILYPRN PRN GT Constipation 04/08/19 13:45 05/06/19 07:14 Sucralfate (Carafate) 1 gm Q6HR GT 04/06/19 12:00 05/06/19 11:59 04/11/19 05:29 Zinc Oxide (Zinc Oxide) 1 applic TIDPRN PRN TOPIC around g tube 04/08/19 12:00 05/08/19 11:59 Last 24 Hour Vital Signs Date Time Temp Pulse Resp B/P (MAP) Pulse Ox O2 Delivery O2 Flow Rate FiO2 04/11/19 06:52 90 24 35 04/11/19 04:51 82 16 35 04/11/19 04:00 35 04/11/19 04:00 Mechanical Ventilator 04/11/19 04:00 98.1 89 16 120/68 (85) 95 04/11/19 03:50 82 04/11/19 02:47 86 16 35 04/11/19 01:12 90 17 35 04/11/19 00:00 98.1 74 18 129/80 (96) 99 04/11/19 00:00 Mechanical Ventilator 04/10/19 23:34 78 04/10/19 23:00 78 18 35 04/10/19 21:18 68 15 35 04/10/19 20:00 98.2 73 15 129/80 (96) 100 04/10/19 20:00 Mechanical Ventilator 04/10/19 20:00 35 04/10/19 19:31 70 04/10/19 18:34 70 17 98 Mechanical Ventilator 50 04/10/19 18:32 70 17 35 04/10/19 17:03 69 15 35 04/10/19 16:00 65 04/10/19 16:00 35 04/10/19 16:00 98.3 73 17 113/56 (75) 98 04/10/19 16:00 Mechanical Ventilator 04/10/19 15:22 68 14 35 04/10/19 13:35 67 14 35 04/10/19 12:00 98.2 65 16 114/50 (71) 98 04/10/19 12:00 Mechanical Ventilator 04/10/19 12:00 35 04/10/19 12:00 63 04/10/19 10:54 64 14 35 04/10/19 09:30 65 16 35 04/10/19 08:00 64 04/10/19 08:00 Mechanical Ventilator 04/10/19 08:00 98.2 65 16 104/57 (73) 98 04/10/19 08:00 35 04/10/19 07:27 68 17 35 04/10/19 05:07 63 16 35 04/10/19 04:00 63 04/10/19 04:00 35 04/10/19 04:00 98.5 68 16 109/62 (78) 99 04/10/19 04:00 Mechanical Ventilator 04/10/19 02:53 68 17 35 04/10/19 01:22 62 17 35 04/10/19 00:00 Mechanical Ventilator 04/10/19 00:00 98.7 63 16 107/63 (78) 100 04/10/19 00:00 64 04/09/19 23:00 74 21 35 04/09/19 21:06 72 20 35 04/09/19 20:00 75 04/09/19 20:00 35 04/09/19 20:00 99.3 72 15 113/63 (80) 100 04/09/19 20:00 Mechanical Ventilator 04/09/19 18:43 75 16 35 04/09/19 17:08 78 16 35 04/09/19 16:00 98.6 79 17 133/71 (91) 100 04/09/19 16:00 Mechanical Ventilator 04/09/19 16:00 82 04/09/19 16:00 35 04/09/19 14:52 85 19 35 04/09/19 13:36 88 20 35 04/09/19 12:00 97.7 78 18 138/76 (96) 98 04/09/19 12:00 78 04/09/19 12:00 Mechanical Ventilator 04/09/19 12:00 35 04/09/19 11:06 76 16 35 04/09/19 08:51 74 20 35 Intake and Output 04/10/19 04/11/19 19:00 07:00 Intake Total 1513 ml 1567.5 ml Output Total 750 ml 450 ml Balance 763 ml 1117.5 ml Intake Free Water 150 ml 100 ml IV Total 843 ml 862.5 ml Tube Feeding 520 ml 605 ml Output Urine Total 750 ml 450 ml # Bowel Movements 3 3 Labs Test 04/09/19 03:05 04/09/19 13:00 04/10/19 02:55 04/11/19 03:28 White Blood Count 9.7 K/UL (4.8-10.8) 9.2 K/UL (4.8-10.8) 10.0 K/UL (4.8-10.8) Red Blood Count 3.03 M/UL (4.70-6.10) 2.99 M/UL (4.70-6.10) 3.12 M/UL (4.70-6.10) Hemoglobin 8.5 G/DL (14.2-18.0) 8.4 G/DL (14.2-18.0) 8.7 G/DL (14.2-18.0) Hematocrit 26.7 % (42.0-52.0) 26.2 % (42.0-52.0) 27.2 % (42.0-52.0) Mean Corpuscular Volume 88 FL (80-99) 88 FL (80-99) 87 FL (80-99) Mean Corpuscular Hemoglobin 28.2 PG (27.0-31.0) 28.0 PG (27.0-31.0) 28.0 PG (27.0-31.0) Mean Corpuscular Hemoglobin Concent 32.0 G/DL (32.0-36.0) 32.0 G/DL (32.0-36.0) 32.1 G/DL (32.0-36.0) Red Cell Distribution Width 14.5 % (11.6-14.8) 14.1 % (11.6-14.8) 14.8 % (11.6-14.8) Platelet Count 333 K/UL (150-450) 310 K/UL (150-450) 322 K/UL (150-450) Mean Platelet Volume 7.0 FL (6.5-10.1) 6.7 FL (6.5-10.1) 6.9 FL (6.5-10.1) Neutrophils (%) (Auto) 68.7 % (45.0-75.0) 64.3 % (45.0-75.0) 64.1 % (45.0-75.0) Lymphocytes (%) (Auto) 16.3 % (20.0-45.0) 17.5 % (20.0-45.0) 17.8 % (20.0-45.0) Monocytes (%) (Auto) 9.2 % (1.0-10.0) 13.2 % (1.0-10.0) 12.4 % (1.0-10.0) Eosinophils (%) (Auto) 5.4 % (0.0-3.0) 4.5 % (0.0-3.0) 4.8 % (0.0-3.0) Basophils (%) (Auto) 0.5 % (0.0-2.0) 0.6 % (0.0-2.0) 0.9 % (0.0-2.0) Sodium Level 135 MMOL/L (136-145) 133 MMOL/L (136-145) 135 MMOL/L (136-145) Potassium Level 3.6 MMOL/L (3.5-5.1) 3.1 MMOL/L (3.5-5.1) 4.1 MMOL/L (3.5-5.1) Chloride Level 102 MMOL/L (98-107) 102 MMOL/L (98-107) 104 MMOL/L (98-107) Carbon Dioxide Level 18 MMOL/L (21-32) 21 MMOL/L (21-32) 23 MMOL/L (21-32) Anion Gap 15 mmol/L (5-15) 11 mmol/L (5-15) 8 mmol/L (5-15) Blood Urea Nitrogen 16 mg/dL (7-18) 15 mg/dL (7-18) 14 mg/dL (7-18) Creatinine 1.0 MG/DL (0.55-1.30) 1.0 MG/DL (0.55-1.30) 0.9 MG/DL (0.55-1.30) Estimat Glomerular Filtration Rate > 60 mL/min (>60) > 60 mL/min (>60) > 60 mL/min (>60) Glucose Level 66 MG/DL (74-106) 133 MG/DL (74-106) 119 MG/DL (74-106) Calcium Level 8.9 MG/DL (8.5-10.1) 8.8 MG/DL (8.5-10.1) 8.5 MG/DL (8.5-10.1) Phosphorus Level 3.3 MG/DL (2.5-4.9) 2.0 MG/DL (2.5-4.9) Magnesium Level 1.8 MG/DL (1.8-2.4) 1.7 MG/DL (1.8-2.4) Total Bilirubin 0.4 MG/DL (0.2-1.0) 0.2 MG/DL (0.2-1.0) Aspartate Amino Transf (AST/SGOT) 19 U/L (15-37) 14 U/L (15-37) Alanine Aminotransferase (ALT/SGPT) 17 U/L (12-78) 17 U/L (12-78) Alkaline Phosphatase 145 U/L (46-116) 139 U/L (46-116) Total Protein 7.1 G/DL (6.4-8.2) 6.8 G/DL (6.4-8.2) Albumin 2.6 G/DL (3.4-5.0) 2.5 G/DL (3.4-5.0) Globulin 4.5 g/dL 4.3 g/dL Albumin/Globulin Ratio 0.6 (1.0-2.7) 0.6 (1.0-2.7) Stool Occult Blood Positive (NEGATIVE) Height (Feet): 5 Height (Inches): 6.00 Weight (Pounds): 129 Objective Physical Exam Vitals: reviewed Gen: other - nonverbal Neck: tracheotomy/vent Respiratory: chest non-tender, lungs clear, ++ vent Cv: regular rate, rhythm, no edema Gi: normal bowel sounds, non tender, soft, non-distended, no guarding, no rebound, G-TUBE+ Neurologic: other - nonverbal Psychiatric: other - nonverbal Skin: other - see nursing skin notes Lymphatic: normal inspection Nikos Nath MD Apr 11, 2019 08:51
--- NOTE | 2019-04-11 10:46 | GI Progress Note ---
Assessment/Plan Problems: (1) GT SITE LEAKING (2) Upper GI bleed ICD Codes: K92.2 - Upper gastrointestinal hemorrhage SNOMED: 00158337 (3) Severe protein-calorie malnutrition ICD Codes: E43 - Unspecified severe protein-calorie malnutrition SNOMED: 676516387 (4) Malfunction of gastrostomy tube ICD Codes: K94.23 - Gastrostomy malfunction SNOMED: 878809084 (5) Severe erosive esophagitis Status: stable Status Narrative Discussed with Dr. Wilson. Assessment/Plan EGD only if emergent, stable H&H at this time Wound care consult. GT changed, cont feeding. Monitor H&H, as needed transfusions Prevacid twice daily Carafate IV PO hydration follow labs The patient was seen and examined at bedside and all new and available data was reviewed in the patients chart. I agree with the above findings, impression and plan. (Patient seen earlier today. Signature stamp does not reflect patient encounter time.). - Vitaliy Wilson MD Subjective Subjective limited Objective Last 24 Hour Vital Signs Date Time Temp Pulse Resp B/P (MAP) Pulse Ox O2 Delivery O2 Flow Rate FiO2 04/11/19 09:27 90 20 35 04/11/19 08:00 99.1 94 16 127/85 (99) 99 04/11/19 08:00 35 04/11/19 08:00 93 04/11/19 08:00 Mechanical Ventilator 04/11/19 06:52 90 24 35 04/11/19 04:51 82 16 35 04/11/19 04:00 35 04/11/19 04:00 Mechanical Ventilator 04/11/19 04:00 98.1 89 16 120/68 (85) 95 04/11/19 03:50 82 04/11/19 02:47 86 16 35 04/11/19 01:12 90 17 35 04/11/19 00:00 98.1 74 18 129/80 (96) 99 04/11/19 00:00 Mechanical Ventilator 04/10/19 23:34 78 04/10/19 23:00 78 18 35 04/10/19 21:18 68 15 35 04/10/19 20:00 98.2 73 15 129/80 (96) 100 04/10/19 20:00 Mechanical Ventilator 04/10/19 20:00 35 04/10/19 19:31 70 04/10/19 18:34 70 17 98 Mechanical Ventilator 50 04/10/19 18:32 70 17 35 04/10/19 17:03 69 15 35 04/10/19 16:00 65 04/10/19 16:00 35 04/10/19 16:00 98.3 73 17 113/56 (75) 98 04/10/19 16:00 Mechanical Ventilator 04/10/19 15:22 68 14 35 04/10/19 13:35 67 14 35 04/10/19 12:00 98.2 65 16 114/50 (71) 98 04/10/19 12:00 Mechanical Ventilator 04/10/19 12:00 35 04/10/19 12:00 63 04/10/19 10:54 64 14 35 Intake and Output 04/10/19 04/11/19 19:00 07:00 Intake Total 1513 ml 1567.5 ml Output Total 750 ml 450 ml Balance 763 ml 1117.5 ml Intake Free Water 150 ml 100 ml IV Total 843 ml 862.5 ml Tube Feeding 520 ml 605 ml Output Urine Total 750 ml 450 ml # Bowel Movements 3 3 Laboratory Tests Test 04/11/19 03:28 White Blood Count 10.0 K/UL (4.8-10.8) Red Blood Count 3.12 M/UL (4.70-6.10) L Hemoglobin 8.7 G/DL (14.2-18.0) L Hematocrit 27.2 % (42.0-52.0) L Mean Corpuscular Volume 87 FL (80-99) Mean Corpuscular Hemoglobin 28.0 PG (27.0-31.0) Mean Corpuscular Hemoglobin Concent 32.1 G/DL (32.0-36.0) Red Cell Distribution Width 14.8 % (11.6-14.8) Platelet Count 322 K/UL (150-450) Mean Platelet Volume 6.9 FL (6.5-10.1) Neutrophils (%) (Auto) 64.1 % (45.0-75.0) Lymphocytes (%) (Auto) 17.8 % (20.0-45.0) L Monocytes (%) (Auto) 12.4 % (1.0-10.0) H Eosinophils (%) (Auto) 4.8 % (0.0-3.0) H Basophils (%) (Auto) 0.9 % (0.0-2.0) Sodium Level 135 MMOL/L (136-145) L Potassium Level 4.1 MMOL/L (3.5-5.1) Chloride Level 104 MMOL/L (98-107) Carbon Dioxide Level 23 MMOL/L (21-32) Anion Gap 8 mmol/L (5-15) Blood Urea Nitrogen 14 mg/dL (7-18) Creatinine 0.9 MG/DL (0.55-1.30) Estimat Glomerular Filtration Rate > 60 mL/min (>60) Glucose Level 119 MG/DL (74-106) H Calcium Level 8.5 MG/DL (8.5-10.1) Phosphorus Level 2.0 MG/DL (2.5-4.9) L Magnesium Level 1.7 MG/DL (1.8-2.4) L Total Bilirubin 0.2 MG/DL (0.2-1.0) Aspartate Amino Transf (AST/SGOT) 14 U/L (15-37) L Alanine Aminotransferase (ALT/SGPT) 17 U/L (12-78) Alkaline Phosphatase 139 U/L (46-116) H Total Protein 6.8 G/DL (6.4-8.2) Albumin 2.5 G/DL (3.4-5.0) L Globulin 4.3 g/dL Albumin/Globulin Ratio 0.6 (1.0-2.7) L Height (Feet): 5 Height (Inches): 6.00 Weight (Pounds): 129 General Appearance: no apparent distress Cardiovascular: normal rate Respiratory/Chest: normal breath sounds, no respiratory distress Abdominal Exam: normal bowel sounds, non tender, soft, GT site - c/d/i Extremities: non-tender Emanuel Quesada NP Apr 11, 2019 10:46
[2019-04-11 12:00] VITALS: BP 110/60
--- NOTE | 2019-04-11 12:53 | NUR ---
[facility] [employer] SI: RESP FAILURE TRACH/VENT DEPENDENT GI BLEED T. 99.1 HR 94 RR 16 B/P 127/85 AC 14 TV 600 FIO2 35% PEEP 5 NA 135 IS: IVF D5NS @ 75ML/HR CEFEPIME IV MAGNESIUM IV STEP DOWN STATUS
--- NOTE | 2019-04-11 13:21 | Infectious Diseases Prog Note ---
Assessment/Plan Assessment/Plan Assessment: Probable Sepsis vs SIRS (due to GIB) -04/09CXR: No acute findings =04/07 Sp cx MDR/CRE K. pna (I Imipenem, Amikacin, Gentamycin; S Tigecycline, Colistin, Polymixin B), ESBL E.coli, MDR ABC ( S imipenem, Colistin, Polymixin B); likely colonizers -Bcx NTD -04/05 CXR: No acute findings. Probable UTI -u/a wbc tnct, nit neg, leuk +3; ucx 40-50k P.stuarti (S Ceftriaxone, Zosyn, Ertapenem) Afebrile Leukocytosis, SP hx of infected obstuctive ureterolithiasis/w abscess s/p L NT placed 12/2018 s/p 1 month Ertapenem -sp L NT exchange 02/2019 hx of UTI - Urine Cx 02/15/19 - Proteus - Sen to Sherly and amik - ESBL UTI 07/2018 Hx Constipation Chronic respiratory failure trach/vent dependant Hypothyroidism GERD Hypertension Hx C. diff Dysphagia s/p G-tube Anemia. CVA/TIA w/ hemiplegia functional quadriplegia chronic encephalopathy CAD CHF Asthma Dm2 GIB s/p multiple EGDs in the past hx of diffuse ulcerative esophagitis, peptic esophageal stricture (EGD Jul 2018 ) schizoaffective disease custodial resident multiple admissions hx of VRE colonization malnutrition Plan: -Continue Cefepime #4 (abx d #02/14-10 for P. stuarti UTI) -MDROs in sputum likely colonizers -04/08 SP Ertapenem #3 -04/07 SP IV Vancomycin #2 - 02/22/19 SP meropenem #7 and vancomcyin #7 - 02/19/19 SP vancomcyin #4 - S/p Melita.Erta x 1 month - 12/23/18 SP Zosyn #11, inhaled colistin #8 for MDR P.a.for sputum organism and Fluconazole #7 for Yeast it the urine - 12/12 S/P Vancomycin and Cefepime #5 -12/08 SP Levaquin x1 -11/06 SP Amikacin #6 -11/01 SP Meropenem #4 -10/29 SP IV Vanco #2, Cefepime #2 and Tigecycline #1 -10/28 SP LEavquin x1 -10/09 SP Ertapenem #5 - 10/04 SP Meropenem #2 -10/03/18 SP IV Vancomycin #2 and Cefepime #2 -08/09/18 SP Bactrim #7 -08/03 SP Vancomycin and Cefepime #3 -08/01/18 SP Ceftriaxone x1 -f/u cx -Monitor CBC/CMP, temperatures -Peg/trach care -aspiration precautions -f/u Bcx x2 -GI f.u Thank you for this consultation. Will continue to follow along with you. Discussed with RN. Subjective Allergies: Coded Allergies: NO KNOWN DRUG ALLERGIES (Verified Allergy, Unknown, 09/11/16) Subjective afebrile no leukocytosis Bcx NTD Objective Vital Signs Last 24 Hour Vital Signs Date Time Temp Pulse Resp B/P (MAP) Pulse Ox O2 Delivery O2 Flow Rate FiO2 04/11/19 13:14 86 18 35 04/11/19 12:00 35 04/11/19 12:00 Mechanical Ventilator 04/11/19 10:55 88 15 35 04/11/19 09:27 90 20 35 04/11/19 08:00 99.1 94 16 127/85 (99) 99 04/11/19 08:00 35 04/11/19 08:00 93 04/11/19 08:00 Mechanical Ventilator 04/11/19 06:52 90 24 35 04/11/19 04:51 82 16 35 04/11/19 04:00 35 04/11/19 04:00 Mechanical Ventilator 04/11/19 04:00 98.1 89 16 120/68 (85) 95 04/11/19 03:50 82 04/11/19 02:47 86 16 35 04/11/19 01:12 90 17 35 04/11/19 00:00 98.1 74 18 129/80 (96) 99 04/11/19 00:00 Mechanical Ventilator 04/10/19 23:34 78 04/10/19 23:00 78 18 35 04/10/19 21:18 68 15 35 04/10/19 20:00 98.2 73 15 129/80 (96) 100 04/10/19 20:00 Mechanical Ventilator 04/10/19 20:00 35 04/10/19 19:31 70 04/10/19 18:34 70 17 98 Mechanical Ventilator 50 04/10/19 18:32 70 17 35 04/10/19 17:03 69 15 35 04/10/19 16:00 65 04/10/19 16:00 35 04/10/19 16:00 98.3 73 17 113/56 (75) 98 04/10/19 16:00 Mechanical Ventilator 04/10/19 15:22 68 14 35 04/10/19 13:35 67 14 35 Height (Feet): 5 Height (Inches): 6.00 Weight (Pounds): 129 Objective General Appearance: cachetic, thin Lines, tubes and drains: peripheral HEENT: normocephalic, atraumatic Respiratory/Chest: chest wall non-tender, lungs clear Breasts: no masses Cardiovascular/Chest: normal peripheral pulses, normal rate Abdomen: normal bowel sounds Extremities: normal range of motion Laboratory Tests Test 04/11/19 03:28 White Blood Count 10.0 K/UL (4.8-10.8) Red Blood Count 3.12 M/UL (4.70-6.10) L Hemoglobin 8.7 G/DL (14.2-18.0) L Hematocrit 27.2 % (42.0-52.0) L Mean Corpuscular Volume 87 FL (80-99) Mean Corpuscular Hemoglobin 28.0 PG (27.0-31.0) Mean Corpuscular Hemoglobin Concent 32.1 G/DL (32.0-36.0) Red Cell Distribution Width 14.8 % (11.6-14.8) Platelet Count 322 K/UL (150-450) Mean Platelet Volume 6.9 FL (6.5-10.1) Neutrophils (%) (Auto) 64.1 % (45.0-75.0) Lymphocytes (%) (Auto) 17.8 % (20.0-45.0) L Monocytes (%) (Auto) 12.4 % (1.0-10.0) H Eosinophils (%) (Auto) 4.8 % (0.0-3.0) H Basophils (%) (Auto) 0.9 % (0.0-2.0) Sodium Level 135 MMOL/L (136-145) L Potassium Level 4.1 MMOL/L (3.5-5.1) Chloride Level 104 MMOL/L (98-107) Carbon Dioxide Level 23 MMOL/L (21-32) Anion Gap 8 mmol/L (5-15) Blood Urea Nitrogen 14 mg/dL (7-18) Creatinine 0.9 MG/DL (0.55-1.30) Estimat Glomerular Filtration Rate > 60 mL/min (>60) Glucose Level 119 MG/DL (74-106) H Calcium Level 8.5 MG/DL (8.5-10.1) Phosphorus Level 2.0 MG/DL (2.5-4.9) L Magnesium Level 1.7 MG/DL (1.8-2.4) L Total Bilirubin 0.2 MG/DL (0.2-1.0) Aspartate Amino Transf (AST/SGOT) 14 U/L (15-37) L Alanine Aminotransferase (ALT/SGPT) 17 U/L (12-78) Alkaline Phosphatase 139 U/L (46-116) H Total Protein 6.8 G/DL (6.4-8.2) Albumin 2.5 G/DL (3.4-5.0) L Globulin 4.3 g/dL Albumin/Globulin Ratio 0.6 (1.0-2.7) L Current Medications Medications (Trade) Dose Ordered Sig/Wanda Route PRN Reason Start Time Stop Time Status Last Admin Dose Admin Acetaminophen (Tylenol) 650 mg Q4H PRN GT FEVER (temp>100.5F) 04/08/19 13:45 05/06/19 07:14 Ascorbic Acid (Vitamin C) 250 mg DAILY GT 04/09/19 09:00 05/08/19 08:59 04/11/19 08:26 Cefepime HCl 1 gm/ Dextrose 55 ml @ 110 mls/hr Q24H IVPB 04/08/19 14:00 04/15/19 13:59 04/10/19 14:59 Dextrose (Dextrose 50%) 25 ml Q30M PRN IV Hypoglycemia 04/06/19 07:30 05/06/19 07:27 Dextrose (Dextrose 50%) 50 ml Q30M PRN IV hypoglycemia 04/06/19 07:30 05/06/19 07:29 Dextrose/Sodium Chloride 1,000 ml @ 75 mls/hr [id number] IV 04/09/19 10:15 05/09/19 10:14 04/11/19 02:31 Lansoprazole (Prevacid) 30 mg Q12HR GT 04/06/19 09:00 05/06/19 08:59 04/11/19 08:26 Levothyroxine Sodium (Synthroid) 75 mcg DAILY GT 04/06/19 09:00 05/06/19 08:59 04/11/19 08:26 Lorazepam (Ativan 2mg/ml 1ml) 2 mg Q2H PRN IV For Anxiety 04/06/19 07:15 04/13/19 07:14 Morphine Sulfate (Morphine Sulfate) 4 mg Q4H PRN IVP Severe Pain (Pain Scale 7-10) 04/06/19 07:15 04/13/19 07:14 Ondansetron HCl (Zofran) 4 mg Q6H PRN IVP Nausea & Vomiting 04/06/19 07:15 05/06/19 07:14 Polyethylene Glycol (Miralax) 17 gm DAILYPRN PRN GT Constipation 04/08/19 13:45 05/06/19 07:14 Sucralfate (Carafate) 1 gm Q6HR GT 04/06/19 12:00 05/06/19 11:59 04/11/19 12:14 Zinc Oxide (Zinc Oxide) 1 applic TIDPRN PRN TOPIC around g tube 04/08/19 12:00 05/08/19 11:59 Lisy Lai M.D. Apr 11, 2019 13:21
--- NOTE | 2019-04-11 14:20 | NUR ---
*-* INSURANCE *-* CLINICALS AND REVIEWS HAVE BEEN FAXED TO: [facility] [phone]
[2019-04-11] MEDS: Cefepime HCl 1 GM in D5W 55 ML IVPB SCH (14:53)
--- NOTE | 2019-04-11 14:54 | NUR ---
*-* DISCHARGE PLANNING *-* PAT[facility] P:[phone] F: [phone]
--- NOTE | 2019-04-11 15:47 | Surgery Progress Note ---
Surgery Progress Note Subjective Symptoms: improved Objective Last 24 Hour Vital Signs Date Time Temp Pulse Resp B/P (MAP) Pulse Ox O2 Delivery O2 Flow Rate FiO2 04/11/19 15:17 89 16 35 04/11/19 13:14 86 18 35 04/11/19 12:00 35 04/11/19 12:00 91 04/11/19 12:00 99.1 95 16 110/60 (77) 99 04/11/19 12:00 Mechanical Ventilator 04/11/19 10:55 88 15 35 04/11/19 09:27 90 20 35 04/11/19 08:00 99.1 94 16 127/85 (99) 99 04/11/19 08:00 35 04/11/19 08:00 93 04/11/19 08:00 Mechanical Ventilator 04/11/19 06:52 90 24 35 04/11/19 04:51 82 16 35 04/11/19 04:00 35 04/11/19 04:00 Mechanical Ventilator 04/11/19 04:00 98.1 89 16 120/68 (85) 95 04/11/19 03:50 82 04/11/19 02:47 86 16 35 04/11/19 01:12 90 17 35 04/11/19 00:00 98.1 74 18 129/80 (96) 99 04/11/19 00:00 Mechanical Ventilator 04/10/19 23:34 78 04/10/19 23:00 78 18 35 04/10/19 21:18 68 15 35 04/10/19 20:00 98.2 73 15 129/80 (96) 100 04/10/19 20:00 Mechanical Ventilator 04/10/19 20:00 35 04/10/19 19:31 70 04/10/19 18:34 70 17 98 Mechanical Ventilator 50 04/10/19 18:32 70 17 35 04/10/19 17:03 69 15 35 04/10/19 16:00 65 04/10/19 16:00 35 04/10/19 16:00 98.3 73 17 113/56 (75) 98 04/10/19 16:00 Mechanical Ventilator I&O Intake and Output 04/10/19 04/11/19 19:00 07:00 Intake Total 1513 ml 1567.5 ml Output Total 750 ml 450 ml Balance 763 ml 1117.5 ml Intake Free Water 150 ml 100 ml IV Total 843 ml 862.5 ml Tube Feeding 520 ml 605 ml Output Urine Total 750 ml 450 ml # Bowel Movements 3 3 Dressing: saturated Wound: clean Cardiovascular: RSR Respiratory: clear Abdomen: soft, non-tender, present bowel sounds, non-distended Extremities: no cyanosis Laboratory Tests Test 04/11/19 03:28 White Blood Count 10.0 K/UL (4.8-10.8) Red Blood Count 3.12 M/UL (4.70-6.10) L Hemoglobin 8.7 G/DL (14.2-18.0) L Hematocrit 27.2 % (42.0-52.0) L Mean Corpuscular Volume 87 FL (80-99) Mean Corpuscular Hemoglobin 28.0 PG (27.0-31.0) Mean Corpuscular Hemoglobin Concent 32.1 G/DL (32.0-36.0) Red Cell Distribution Width 14.8 % (11.6-14.8) Platelet Count 322 K/UL (150-450) Mean Platelet Volume 6.9 FL (6.5-10.1) Neutrophils (%) (Auto) 64.1 % (45.0-75.0) Lymphocytes (%) (Auto) 17.8 % (20.0-45.0) L Monocytes (%) (Auto) 12.4 % (1.0-10.0) H Eosinophils (%) (Auto) 4.8 % (0.0-3.0) H Basophils (%) (Auto) 0.9 % (0.0-2.0) Sodium Level 135 MMOL/L (136-145) L Potassium Level 4.1 MMOL/L (3.5-5.1) Chloride Level 104 MMOL/L (98-107) Carbon Dioxide Level 23 MMOL/L (21-32) Anion Gap 8 mmol/L (5-15) Blood Urea Nitrogen 14 mg/dL (7-18) Creatinine 0.9 MG/DL (0.55-1.30) Estimat Glomerular Filtration Rate > 60 mL/min (>60) Glucose Level 119 MG/DL (74-106) H Calcium Level 8.5 MG/DL (8.5-10.1) Phosphorus Level 2.0 MG/DL (2.5-4.9) L Magnesium Level 1.7 MG/DL (1.8-2.4) L Total Bilirubin 0.2 MG/DL (0.2-1.0) Aspartate Amino Transf (AST/SGOT) 14 U/L (15-37) L Alanine Aminotransferase (ALT/SGPT) 17 U/L (12-78) Alkaline Phosphatase 139 U/L (46-116) H Total Protein 6.8 G/DL (6.4-8.2) Albumin 2.5 G/DL (3.4-5.0) L Globulin 4.3 g/dL Albumin/Globulin Ratio 0.6 (1.0-2.7) L Plan Problems: (1) Severe protein-calorie malnutrition Assessment & Plan: DAILY ESTIMATED NEEDS: Needs based on Critical care, underweight TF 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 * Swallowing difficulty R/T respiratory status as evidenced by pt vent dep via trach, PEG dep. ENTERAL NUTRITION RECOMMENDATIONS: Osmolite 1.5 @ 55ml/hr x 22 hrs + Prosource x1 daily to provide 1210ml, 1815kcal, 76g+11g prot, 922ml free water * As medically able, rec starting Osmolite 1.5 @ 25ml/hr for 6 hrs, advance as tolerated to goal. * Add Prosource x 1 pack daily. * HOLD TF 1h before and 1 after Synthroid administration. * Water flush 150ml q 6 hrs/ HOB over 30 degrees ------- ADDITIONAL RECOMMENDATIONS: * Calibrated bedscale weight for accurate CBW + weekly wt monitoring * Wound care: Add JOYCELYN BID via GT Add Vit C 250mg daily via GT (2) Upper GI bleed Assessment & Plan: Patient presented with coffee ground emesis, anemia, leukocytosis history of erosive esophagitis prior endoscopy notes reviewed GI note noted recommend PPI scope as per GI trend labs (3) Malfunction of gastrostomy tube Assessment & Plan: Patient pulls tube intermittently g tube site wound has improved since last admission site clean and needs to be monitored / maintained no significant leak today will apply silver nitrate as needed to wound to allow for healing - applied zinc oxide around wound prn will follow wound to ensure healing (4) GT SITE LEAKING Quirino Bernard Apr 11, 2019 15:47
[2019-04-11 16:00] VITALS: BP 116/76
--- NOTE | 2019-04-11 16:30 | NUR ---
NURSE NOTES: Called [facility] and gave report to ODILIA Minor. Noted.
--- NOTE | 2019-04-11 17:18 | NUR ---
NURSE NOTES: Per [facility], transport will be 45 minutes late. Noted. Will continue to monitor patient.
--- NOTE | 2019-04-11 17:38 | Pulmonolgy Critical Care Note ---
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, 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 with: consultants, rn field case managerauditing manager - Objective Last 24 Hour Vital Signs Date Time Temp Pulse Resp B/P (MAP) Pulse Ox O2 Delivery O2 Flow Rate FiO2 04/11/19 17:08 65 14 35 04/11/19 16:00 35 04/11/19 16:00 Mechanical Ventilator 04/11/19 15:24 88 04/11/19 15:17 89 16 35 04/11/19 13:14 86 18 35 04/11/19 12:00 35 04/11/19 12:00 91 04/11/19 12:00 99.1 95 16 110/60 (77) 99 04/11/19 12:00 Mechanical Ventilator 04/11/19 10:55 88 15 35 04/11/19 09:27 90 20 35 04/11/19 08:00 99.1 94 16 127/85 (99) 99 04/11/19 08:00 35 04/11/19 08:00 93 04/11/19 08:00 Mechanical Ventilator 04/11/19 06:52 90 24 35 04/11/19 04:51 82 16 35 04/11/19 04:00 35 04/11/19 04:00 Mechanical Ventilator 04/11/19 04:00 98.1 89 16 120/68 (85) 95 04/11/19 03:50 82 04/11/19 02:47 86 16 35 04/11/19 01:12 90 17 35 04/11/19 00:00 98.1 74 18 129/80 (96) 99 04/11/19 00:00 Mechanical Ventilator 04/10/19 23:34 78 04/10/19 23:00 78 18 35 04/10/19 21:18 68 15 35 04/10/19 20:00 98.2 73 15 129/80 (96) 100 04/10/19 20:00 Mechanical Ventilator 04/10/19 20:00 35 04/10/19 19:31 70 04/10/19 18:34 70 17 98 Mechanical Ventilator 50 04/10/19 18:32 70 17 35 Status: somnolent Condition: critical Neck: full ROM Lungs: chest wall tender Heart: regular Abdomen: non-tender Extremities: no C/C/E Critical Care - Subjective ROS Limited/Unobtainable: Yes Condition: critical EKG Rhythm: Sinus Rhythm FI02: 35 Vent Support Breath Rate: 14 Vent Support Mode: AC Vent Tidal Volume: 600 Sputum Amount: Moderate PEEP: 5.0 PIP: 23 Tube Feeding Amount: 55 I&O: Intake and Output 04/10/19 04/11/19 19:00 07:00 Intake Total 1513 ml 1567.5 ml Output Total 750 ml 450 ml Balance 763 ml 1117.5 ml Intake Free Water 150 ml 100 ml IV Total 843 ml 862.5 ml Tube Feeding 520 ml 605 ml Output Urine Total 750 ml 450 ml # Bowel Movements 3 3 Labs: Laboratory Tests Test 04/11/19 03:28 White Blood Count 10.0 K/UL (4.8-10.8) Red Blood Count 3.12 M/UL (4.70-6.10) L Hemoglobin 8.7 G/DL (14.2-18.0) L Hematocrit 27.2 % (42.0-52.0) L Mean Corpuscular Volume 87 FL (80-99) Mean Corpuscular Hemoglobin 28.0 PG (27.0-31.0) Mean Corpuscular Hemoglobin Concent 32.1 G/DL (32.0-36.0) Red Cell Distribution Width 14.8 % (11.6-14.8) Platelet Count 322 K/UL (150-450) Mean Platelet Volume 6.9 FL (6.5-10.1) Neutrophils (%) (Auto) 64.1 % (45.0-75.0) Lymphocytes (%) (Auto) 17.8 % (20.0-45.0) L Monocytes (%) (Auto) 12.4 % (1.0-10.0) H Eosinophils (%) (Auto) 4.8 % (0.0-3.0) H Basophils (%) (Auto) 0.9 % (0.0-2.0) Sodium Level 135 MMOL/L (136-145) L Potassium Level 4.1 MMOL/L (3.5-5.1) Chloride Level 104 MMOL/L (98-107) Carbon Dioxide Level 23 MMOL/L (21-32) Anion Gap 8 mmol/L (5-15) Blood Urea Nitrogen 14 mg/dL (7-18) Creatinine 0.9 MG/DL (0.55-1.30) Estimat Glomerular Filtration Rate > 60 mL/min (>60) Glucose Level 119 MG/DL (74-106) H Calcium Level 8.5 MG/DL (8.5-10.1) Phosphorus Level 2.0 MG/DL (2.5-4.9) L Magnesium Level 1.7 MG/DL (1.8-2.4) L Total Bilirubin 0.2 MG/DL (0.2-1.0) Aspartate Amino Transf (AST/SGOT) 14 U/L (15-37) L Alanine Aminotransferase (ALT/SGPT) 17 U/L (12-78) Alkaline Phosphatase 139 U/L (46-116) H Total Protein 6.8 G/DL (6.4-8.2) Albumin 2.5 G/DL (3.4-5.0) L Globulin 4.3 g/dL Albumin/Globulin Ratio 0.6 (1.0-2.7) L Huma Keating MD Apr 11, 2019 17:38
--- NOTE | 2019-04-11 18:40 | NUR ---
RESPIRATORY NOTE: Received pt on AC 14, 600VT, 35%, PEEP +5. Pt is trach-dependent w/ a cuffed, Portex 8 tube. Pt asleep/disoriented. B/S nora. rhonchi, sxn small to moderate amounts of thin, frothy, pale-yellow secretions. Vent plugged into red outlet, ambubag at bedside. Pt in no apparent distress at this time. Will continue plan of care.
--- NOTE | 2019-04-11 19:04 | NUR ---
NURSE NOTES: Followed up with [facility] regarding transport, per [facility] personnel, transport is 10 minutes aware. Noted.
--- NOTE | 2019-04-11 19:21 | NUR ---
NURSE NOTES: Received patient from ODILIA Guerrero. Will continue plan of care.
--- NOTE | 2019-04-11 19:28 | NUR ---
HAND-OFF: Report given to ODILIA Miranda.
[2019-04-11 20:00] VITALS: BP 105/68
[2019-04-11] MEDS ORDERED: Tubing IV Secondary IV ONE (20:04)
[2019-04-11] MEDS ORDERED: NS Irrig 1000ml ONE (20:04)
[2019-04-11] MEDS ORDERED: D5 1/2NS 1000ml IV ONE (20:04)
--- NOTE | 2019-04-11 20:10 | NUR ---
NURSE NOTES: [facility] picked up patient to transfer back to [facility]. Report given to ODILIA Camacho. bottle filler removed. Patient is stable.
--- NOTE | 2019-04-14 22:48 | Discharge Summary ---
Discharge Summary Discharge Summary _ DATE OF ADMISSION: 04/05/2019 DATE OF DISCHARGE: 04/11/2019 ADMITTING MD: Dr. Gato Viveros CONSULTANTS: Dr. Huma Nath BRIEF HOSPITAL COURSE: Patient is a 68-year-old male who presented to ED for evaluation. He was brought in by EMS from group home facility Due to multiple episodes of coffee-ground emesis. He has history of GI bleed in the past. Patient was nonverbal at baseline. Has trach and vent. He was unable to provide any additional history. There were no reported fever or chills. On evaluation at the ED, blood work showed WBC elevated to 24. Hemoglobin was 11 and hematocrit 34. Sodium 135. Potassium 3.4. Lactic acid 1.6. LFTs normal. Lipase normal. Urinalysis with +3 leukocyte esterase, negative nitrite , urine WBC too many to count, urine RBC 5-10. EKG showed sinus tachycardia with no acute changes. Chest x-ray did not show any acute findings. Patient had difficult IV access. A peripheral EJ line was inserted. He was given IV hydration. He was given Zofran and Protonix. He was admitted for evaluation of upper GI bleed with associated nausea/vomiting and hemoptysis. CBC was trended. He was continued empirically on IV vancomycin. He was continued on IV hydration. GI was consulted. G-tube was noted to have leakage around the site with an open wound. G-tube site was assessed, noted with 22 Amharic. The surrounding stoma was noted to have a larger circumference than the G-tube itself. G-tube retention ring was readjusted. G-tube site dressings reinforced. He was given Carafate and PPI. Surgeon was consulted to evaluate G-tube site. On assessment, G-tube site wound has improved since last admission. Site was clean. There was no significant leak noted. Silver nitrate was applied to allow for healing ID was consulted for evaluation of leukocytosis and bandemia. IV vancomycin was discontinued and patient was given ertapenem. Sputum culture showed growth of gram-negative rods, likely colonizer. Blood culture did not isolate any growth. Urine culture showed growth of Proteus with colony counts of 40,000 -50 ,000. Ertapenem was switched to cefepime for Proteus UTI. MDR organisms in sputum (Klebsiella pneumonia, ESBL E. coli, MDR Acinetobacter) were likely colonizers. Venous duplex was negative for DVT. H&H was stable. No need for emergent EGD. He was eventually discharged back to [facility]. FINAL DIAGNOSES: Probable sepsis versus SIRS due to GI bleed probable UTI Probable UTI Malfunction of gastrostomy tube Severe erosive esophagitis Severe protein calorie malnutrition Hypercalcemia History of infected obstructive ureterolithiasis with abscess Chronic respiratory failure on trach and vent Hypothyroidism GERD Hypertension Dysphagia status post G-tube Anemia CVA/TIA with hemiplegia Functional quadriplegia chronic encephalopathy Acute on chronic encephalopathy Asthma Schizoaffective disorder DISPOSITION: Patient was discharged to a SNF. I have been assigned to complete a discharge summary on this account, I was not involved with the patient's management.--THAI Hatfield Jacqueline Robles NP Apr 14, 2019 22:48
== END 2019-04-11 20:05 | DRG 870 ==
LOC: EDBD 19:21 → EDUNIT# 19:21 → EMR 19:56 → 2W 21:48 → EDBEDREQ 21:53
PROC: 5A1955Z Respiratory Ventilation, Greater than 96 Consecutive Hours (ICD-10-PCS; principal; 2019-04-05)
DX: A41.9 Sepsis, unspecified organism (principal); E43 Unspecified severe protein-calorie malnutrition; R65.21 Severe sepsis with septic shock; R53.2 Functional quadriplegia; J96.20 Acute and chronic respiratory failure, unspecified whether with hypoxia or hypercapnia; N39.0 Urinary tract infection, site not specified; I69.959 Hemiplegia and hemiparesis following unspecified cerebrovascular disease affecting unspecified side; K22.10 Ulcer of esophagus without bleeding; K92.2 Gastrointestinal hemorrhage, unspecified; K94.23 Gastrostomy malfunction; G93.40 Encephalopathy, unspecified; E83.52 Hypercalcemia; E11.9 Type 2 diabetes mellitus without complications; Z43.0 Encounter for attention to tracheostomy; Y83.3 Surgical operation with formation of external stoma as the cause of abnormal reaction of the patient, or of later complication, without mention of misadventure at the time of the procedure; E03.9 Hypothyroidism, unspecified; R13.10 Dysphagia, unspecified; J45.909 Unspecified asthma, uncomplicated; F25.9 Schizoaffective disorder, unspecified; I10 Essential (primary) hypertension; K21.9 Gastro-esophageal reflux disease without esophagitis
CPT/HCPCS: 36415; 71045; 74018; 80048; 80053; 80069; 81003; 82270; 82728; 82962; 83540; 83550; 83605; 83690; 83735; 83970; 84100; 85007; 85025; 85610; 85730; 86850; 86900; 86901; 87040; 87070; 87081; 87086; 87181; 87205; 93005; 93970; 94002; 94003; 94664; 96361; 96374; 96375; 99285; J2405; J8499

== ENCOUNTER 2019-06-14 12:10 | Inpatient (IN) | payer MEDICARE ==
[~2019-06-14] VITALS: Ht 152.4 cm; Wt 91.3 kg
[2019-06-14] VITALS (32 sets, daily range): BP systolic 61–119; BP diastolic 39–58
[~2019-06-14 12:10] MED LIST changes: +ACETAMINOP160 MG/51 GT; +CARAFATE SUSP UD1 G1 GT; +FERROUS SU325 MG/5 M GT; +LEVOTHYROXINE125 MCG ORAL; +SYNTHROID150 MCG GT; +VITAMIN C500 MG/11 PO
--- NOTE | 2019-06-14 12:11 | NUR ---
ED Nurse Note: Pt brought in by RA [facility] from [facility] d/t bradycardia and hypotension. HR in 40-45 and SBP 70 in the field. Pt is non verbal but responsive to painful stimuli such as squeezing of hands. Pt is trach dependent. G tube in place. Skin is pale and cool to touch. ERMD and RT notified.
[2019-06-14] MEDS ORDERED: Atropine Sulfate 0.4mg/ml inj IVP ONE (12:30)
[2019-06-14] MEDS ORDERED: Atropine Sulfate 0.4mg/ml inj 20ML IVP ONE (12:30)
[2019-06-14 12:51] LABS: HEMATOCRIT 31.1 % (42.0-52.0); MEAN CORPUSCULAR VOLUME 86 FL (80-99); PLATELET COUNT 163 K/UL (150-450); RED BLOOD COUNT 3.64 M/UL (4.70-6.10); RED CELL DISTRIBUTION WIDTH 15.5 % (11.6-14.8); WHITE BLOOD COUNT 18.5 K/UL (4.8-10.8)
[2019-06-14 12:54] LABS: INR 1.1 (0.9-1.1)
[2019-06-14 12:56] LABS: ANION GAP 9 mmol/L (5-15); BLOOD UREA NITROGEN 49 mg/dL (7-18); CALCIUM 9.5 MG/DL (8.5-10.1); CARBON DIOXIDE 21 MMOL/L (21-32); CHLORIDE 96 MMOL/L (98-107); CREATININE 0.7 MG/DL (0.55-1.30); POTASSIUM 4.5 MMOL/L (3.5-5.1); SODIUM 126 MMOL/L (136-145)
--- NOTE | 2019-06-14 13:00 | NUR ---
ED Nurse Note: Rectal temp 86 F and covered pt with angelica mccain. Dr Salcedo notified.
--- NOTE | 2019-06-14 13:11 | NUR ---
ED Nurse Note: technology sales representative at the bed side for CXR.
[2019-06-14 13:12] LABS: ALANINE AMINOTRANSFERASE 74 U/L (12-78); ALBUMIN 2.9 G/DL (3.4-5.0); ALBUMIN/GLOBULIN RATIO 0.7 (1.0-2.7); ALKALINE PHOSPHATASE 200 U/L (46-116); ASPARTATE AMINO TRANSFERASE 56 U/L (15-37); BILIRUBIN,TOTAL 0.2 MG/DL (0.2-1.0); CKMB 49.8 NG/ML (0.0-3.6); CREATINE KINASE 262 U/L (26-308); PHOSPHORUS 1.6 MG/DL (2.5-4.9)
--- NOTE | 2019-06-14 13:30 | NUR ---
ED Nurse Note: Dr Salcedo inserted IO line on left tibia.
--- NOTE | 2019-06-14 13:39 | Diagnostic Imaging Report ---
EXAM: XR Chest, 1 View CLINICAL HISTORY: Chest pain TECHNIQUE: Frontal view of the chest. COMPARISON: Chest x-rays dated 04 05 19 and 10 28 18 FINDINGS: Limitations: Exam degraded by overlying wires and patches. Lungs: Subsegmental atelectasis versus infiltrates in the medial lung bases, greater on the left. The lungs otherwise appear clear. Pleural space: Unremarkable. The costophrenic angles are sharp. No visible pneumothorax. Heart: Unremarkable. No cardiomegaly. Mediastinum: Unremarkable. Bones joints: Degenerative changes in bilateral shoulder joints. Vasculature: Atherosclerotic calcifications are noted within the aortic arch. Tubes, lines and devices: Expected positioning of the tracheostomy tube. Telemetry leads overlie the thorax. Radiodense tubing versus lead wire overlies the right heart border. IMPRESSION: Subsegmental atelectasis versus infiltrates in the medial lung bases, greater on the left.
--- NOTE | 2019-06-14 14:25 | NUR ---
ED Nurse Note: Called pharmacy for levophed.
--- NOTE | 2019-06-14 14:26 | Operative Note - PDOC ---
Operative Note Operative Note Date of Operation/Procedure: Jun 14, 2019 Pre-op Diagnosis: sepsis, tachycardia, hypotension Procedure: right subclavian central venous catheter insertion Post-op Diagnosis: same as pre-op Surgeon: quinton LUNA Anesthesia: local Specimen: none Complications: none Condition: unstable Fluids: n/a Estimated Blood Loss: minimal Drains: none Implant(s) used?: Yes - triple lumen Indications for Procedure 68M presented to ED with sepsis, abnormal labs, hypotension, tachycardia. SBP in the 50-60's. given contractures femoral access difficult. patient with trach on vent. surgery called to evaluate and assist with care. Subclavian line emergently recommended and indicated. procedure medically necessary. patient full code. Description of Procedure patient made comfortable at bedside. right chest prepped and draped in surgical fashion. placed in Trendelenburg position. using finder needle the right subclavian vein was cannulated. good venous flow noted. guidewire passed over needle and needle removed. small skin incision made over wire and dilator used. triple lumen catheter placed over wire and wire removed/ discarded. all ports flushed and aspirated well. line sutured in place and dressings applied. CXR ordered. patient tolerated well. Quirino Bernard Jun 14, 2019 14:26
[2019-06-14] MEDS ORDERED: Morphine Sulfate 4mg/ml Inj (IV USE ONLY) IVP PRN (14:30)
[2019-06-14] MEDS ORDERED: LORazepam Inj 2mg/ml 1ml IV PRN (14:30)
[2019-06-14] MEDS ORDERED: Miralax 17gm pkt GT PRN (14:30)
[2019-06-14] MEDS ORDERED: Acetaminophen 650mg/20.3ml GT PRN (14:30)
[2019-06-14] MEDS ORDERED: DOPamine 400mg/250ml 250 ML IV ONE (14:30)
[2019-06-14] MEDS ORDERED: Albuterol/Ipratropium 3ml neb HHN PRN (14:30)
[2019-06-14] MEDS ORDERED: Miralax 17gm pkt ORAL PRN (14:30)
--- NOTE | 2019-06-14 14:30 | Consultation ---
History of Present Illness General Date patient seen: Jun 14, 2019 Chief Complaint: General Complaint Present Illness HPI 68M presented to ED with sepsis, abnormal labs, hypotension, tachycardia. SBP in the 50-60's. given contractures femoral access difficult. patient with trach on vent. surgery called to evaluate and assist with care. Subclavian line emergently placed in ED as procedure medically necessary. patient full code. patient with multiple medical comorbidities who I have cared for prior. trach on vent. malnutrition. Allergies: Coded Allergies: NO KNOWN DRUG ALLERGIES (Verified Allergy, Unknown, 09/11/16) Medication History Scheduled Ascorbic Acid* (Vitamin C*), 500 MG GT DAILY, (Reported) Cranberry Extract (Cranberry), 425 MG GT BID, (Reported) Docusate Sodium* (Docusate Sodium*), 100 MG GT DAILY, (Reported) Ferrous Sulfate (Ferrous Sulfate), 7.5 ML GT THREE TIMES A DAY, (Reported) Levothyroxine Sodium* (Synthroid*), 150 MCG GT DAILY, (Reported) Multivitamin Liquid* (Multi-Delyn*), 15 ML GT DAILY, (Reported) Polyethylene Glycol 3350* (Miralax*), 17 GM ORAL DAILY, (Reported) Sucralfate (Sucralfate), 10 ML GT FOUR TIMES A DAY, (Reported) Scheduled PRN Acetaminophen (Acetaminophen), 640 MG GT Q4HR PRN for Prn Headache/Temp > 101, ( Reported) Acetaminophen* (Acetaminophen*), 640 MG GT Q4HR PRN for For Pain, (Reported) Patient History Limited by: medical condition History Provided By: Medical Record, PMD Healthcare decision maker Resuscitation status Advanced Directive on File Past Medical/Surgical History Past Medical/Surgical History: (1) Diabetes (2) HTN (hypertension) (3) CVA (cerebral vascular accident) (4) Severe protein-calorie malnutrition (5) Feeding by G-tube (6) Respiratory failure, [id number] (7) Anemia (8) Chronic respiratory failure (9) Septic shock (10) Hypothyroidism (11) Aspiration pneumonia (12) Pyelonephritis (13) C. difficile colitis (14) Malfunction of gastrostomy tube (15) Acute encephalopathy (16) MDR Acinetobacter baumannii infection (17) Severe erosive esophagitis (18) Upper GI bleed (19) Alzheimer's dementia (20) Hypokalemia (21) GT SITE LEAKING (22) Severe sepsis Review of Systems ROS Narrative cannot obtain given medical condition Physical Exam General Appearance: moderate distress Lines, tubes and drains: central line HEENT: mucous membranes moist, other Neck: trach Respiratory/Chest: on vent Cardiovascular/Chest: tachycardia Abdomen: soft, decreased bowel sounds, distended Genitourinary/Rectal: other Extremities: other - contracted Skin Exam: warm/dry Neurologic: unresponsiveness Last 24 Hour Vital Signs Date Time Temp Pulse Resp B/P (MAP) Pulse Ox O2 Delivery O2 Flow Rate FiO2 06/14/19 13:13 49 17 85/49 100 Mechanical Ventilator 35 06/14/19 12:30 35 06/14/19 12:21 84.0 45 15 94/58 100 Mechanical Ventilator 35 06/14/19 12:21 45 15 Mechanical Ventilator 35 06/14/19 12:08 45 17 35 06/14/19 12:08 45 17 100 Mechanical Ventilator 35 06/14/19 12:01 98.1 45 18 94/58 (70) 97 Mechanical Ventilator Laboratory Tests Test 06/14/19 12:30 06/14/19 14:00 White Blood Count 18.5 K/UL (4.8-10.8) H Red Blood Count 3.64 M/UL (4.70-6.10) L Hemoglobin 10.0 G/DL (14.2-18.0) L Hematocrit 31.1 % (42.0-52.0) L Mean Corpuscular Volume 86 FL (80-99) Mean Corpuscular Hemoglobin 27.5 PG (27.0-31.0) Mean Corpuscular Hemoglobin Concent 32.1 G/DL (32.0-36.0) Red Cell Distribution Width 15.5 % (11.6-14.8) H Platelet Count 163 K/UL (150-450) Mean Platelet Volume 8.9 FL (6.5-10.1) Neutrophils (%) (Auto) % (45.0-75.0) Lymphocytes (%) (Auto) % (20.0-45.0) Monocytes (%) (Auto) % (1.0-10.0) Eosinophils (%) (Auto) % (0.0-3.0) Basophils (%) (Auto) % (0.0-2.0) Differential Total Cells Counted 100 Neutrophils % (Manual) 82 % (45-75) H Lymphocytes % (Manual) 4 % (20-45) L Monocytes % (Manual) 4 % (1-10) Eosinophils % (Manual) 0 % (0-3) Basophils % (Manual) 0 % (0-2) Band Neutrophils 10 % (0-8) H Platelet Estimate Adequate Platelet Morphology Normal Anisocytosis 1+ Prothrombin Time 11.5 SEC (9.30-11.50) Prothromb Time International Ratio 1.1 (0.9-1.1) Activated Partial Thromboplast Time 45 SEC (23-33) H Sodium Level 126 MMOL/L (136-145) L Potassium Level 4.5 MMOL/L (3.5-5.1) Chloride Level 96 MMOL/L (98-107) L Carbon Dioxide Level 21 MMOL/L (21-32) Anion Gap 9 mmol/L (5-15) Blood Urea Nitrogen 49 mg/dL (7-18) H Creatinine 0.7 MG/DL (0.55-1.30) Estimat Glomerular Filtration Rate > 60 mL/min (>60) Glucose Level 127 MG/DL (74-106) H Lactic Acid Level 2.40 mmol/L (0.4-2.0) H Calcium Level 9.5 MG/DL (8.5-10.1) Phosphorus Level 1.6 MG/DL (2.5-4.9) L Magnesium Level 2.6 MG/DL (1.8-2.4) H Total Bilirubin 0.2 MG/DL (0.2-1.0) Aspartate Amino Transf (AST/SGOT) 56 U/L (15-37) H Alanine Aminotransferase (ALT/SGPT) 74 U/L (12-78) Alkaline Phosphatase 200 U/L (46-116) H Total Creatine Kinase 262 U/L (26-308) Creatine Kinase MB 49.8 NG/ML (0.0-3.6) H Creatine Kinase MB Relative Index 19.0 Troponin I 0.000 ng/mL (0.000-0.056) Pro-B-Type Natriuretic Peptide 353 pg/mL (0-125) H Total Protein 7.1 G/DL (6.4-8.2) Albumin 2.9 G/DL (3.4-5.0) L Globulin 4.2 g/dL Albumin/Globulin Ratio 0.7 (1.0-2.7) L Lipase 774 U/L (73-393) H Urine Color Pending Urine Appearance Pending Urine pH Pending Urine Specific [place] Pending Urine Protein Pending Urine Glucose (UA) Pending Urine Ketones Pending Urine Blood Pending Urine Nitrite Pending Urine Bilirubin Pending Urine Urobilinogen Pending Urine Leukocyte Esterase Pending Height (Feet): 5 Height (Inches): 9.00 Weight (Pounds): 150 Medications Current Medications Medications (Trade) Dose Ordered Sig/Wanda Route PRN Reason Start Time Stop Time Status Last Admin Dose Admin Acetaminophen (Tylenol) 650 mg Q4H PRN ORAL fever 06/14/19 14:30 07/14/19 14:29 UNV Albuterol/ Ipratropium (Albuterol/ Ipratropium) 3 ml EVERY 4 HOURS PRN HHN Shortness of Breath 06/14/19 14:30 06/19/19 14:29 UNV Amikacin Sulfate / Sodium Chloride 110 ml @ 110 mls/hr Q24H IV 06/14/19 23:45 06/21/19 23:44 UNV Ertapenem 1 gm/ Sodium Chloride 55 ml @ 110 mls/hr Q24H IV 06/14/19 23:45 06/19/19 23:44 UNV Heparin Sodium (Porcine) (Heparin 5000 units/ml) 5,000 units EVERY 12 HOURS SUBQ 06/14/19 21:00 07/14/19 20:59 UNV Levothyroxine Sodium (Synthroid) 150 mcg DAILY GT 06/15/19 09:00 07/15/19 08:59 UNV Lorazepam (Ativan 2mg/ml 1ml) 2 mg EVERY 2 HOURS PRN IV For Anxiety 06/14/19 14:30 06/21/19 14:29 UNV Morphine Sulfate (Morphine Sulfate) 4 mg EVERY 4 HOURS PRN IVP Severe Pain (Pain Scale 7-10) 06/14/19 14:30 06/21/19 14:29 UNV Norepinephrine Bitartrate 4 mg/ Dextrose 254 ml @ 0 mls/hr Q24H IV 06/14/19 14:30 07/14/19 14:29 UNV Ondansetron HCl (Zofran) 4 mg Q6H PRN IVP Nausea & Vomiting 06/14/19 14:30 07/14/19 14:29 UNV Pantoprazole (Protonix) 40 mg DAILY IVP 06/15/19 09:00 07/15/19 08:59 UNV Polyethylene Glycol (Miralax) 17 gm DAILYPRN PRN ORAL Constipation 06/14/19 14:30 07/14/19 14:29 UNV Sodium Chloride 1,000 ml @ 100 mls/hr Q10H IVLG 06/14/19 14:18 07/14/19 14:17 UNV Vancomycin HCl 1 gm/Dextrose 275 ml @ 183.3 mls/ hr Q24H IV 06/14/19 23:45 06/19/19 23:44 UNV Assessment/Plan Problem List: (1) Severe protein-calorie malnutrition Assessment & Plan: DAILY ESTIMATED NEEDS: Needs based on Critical care, underweight 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 * Swallowing difficulty R/T respiratory status as evidenced by pt vent dep via trach, PEG dep. ENTERAL NUTRITION RECOMMENDATIONS: Nepro @45mL/hr x 22hr to provide 990mL, 1782kcal, 80g pro, 720mL free water -When Hemodynamically stable, start Nepro @ 15mL/hr for 6 hrs. -Advance as tolerated 10mL q 4-6 hrs to goal. -TF @goal meets 100% est needs. -Flush per MD/ HOB >30 degrees. ADDITIONAL RECOMMENDATIONS: * Calibrated bedscale weight for accurate CBW + weekly wt monitoring * Per SNF: Ht of 6'1", Wt 125# (05/2019) * TF recs as above when medically stable * Monitor for cont'd need of renal formula (K 5.5) * Monitor lytes and hydration status. ICD Codes: E43 - Unspecified severe protein-calorie malnutrition SNOMED: 446451561 (2) Feeding by G-tube ICD Codes: Z93.1 - Gastrostomy status SNOMED: 742368628, 733394285 (3) Respiratory failure, [id number]-nixbbeo ICD Codes: J96.20 - Respiratory failure, rvkwh-ac-dxbvaer SNOMED: 11833727 (4) Septic shock Assessment & Plan: hypotensive tachycardic labs as above line placed fluid resuscitation pressors will follow with recs thank you ICD Codes: A41.9 - Sepsis, unspecified organism; R65.21 - Severe sepsis with septic shock SNOMED: 14457628 (5) Severe sepsis ICD Codes: A41.9 - Sepsis, unspecified organism; R65.20 - Severe sepsis without septic shock SNOMED: 24766957 Quirino Bernard Jun 14, 2019 14:30
--- NOTE | 2019-06-14 14:30 | NUR ---
ED Nurse Note: Placement of subclavian central line confirmed by CXR. Verified by Dr Bernard that it is okay to use it as an access.
--- NOTE | 2019-06-14 14:31 | Emergency Room Report ---
History of Present Illness General Chief Complaint: General Complaint Source: Medical Record, EMS Present Illness HPI Patient presents by paramedics for reports of low blood pressure and bradycardia patient is from nursing facility and chronically debilitated with Tracheostomy and Ventilator dependence Patient himself is nonverbal this does limit the history of present illness significantly there was no reports of vomiting or diarrhea Patient's medication list is being reviewed There was no reports of trauma Patient is bedbound Allergies: Coded Allergies: NO KNOWN DRUG ALLERGIES (Verified Allergy, Unknown, 09/11/16) Patient History Limited by: medical condition Past Medical History: see triage record Reviewed Nursing Documentation: PMH: Agreed; PSxH: Agreed Nursing Documentation-PMH Hx Cardiac Problems: Yes Hx Hypertension: Yes Hx Pacemaker: No Hx Asthma: No - hypothyroidism Hx COPD: No - vent dependent Hx Diabetes: Yes - type 2 Hx Cancer: No Hx Gastrointestinal Problems: Yes - Gastrostomy Tube Hx Dialysis: Yes Hx Neurological Problems: Yes Hx Cerebrovascular Accident: Yes Hx Transient Ischemic Attacks: Yes Hx Dementia: Yes Hx Alzheimer's Disease: Yes Hx Parkinson's Disease: Yes Hx Encephalitis: Yes Hx Seizures: Yes Hx Epilepsy: Yes Hx Paralysis: Yes - HEMIPLEGIA Hx Memory Loss: Yes Hx Concentration Difficulty: Yes Hx Speech Problem: Yes Hx Aphasia: Yes Hx Weakness: Yes Hx Fatigue: Yes Hx Neurologic Surgery: No Hx Brain Shunt: No Review of Systems All Other Systems: limited - Other than the ones mentioned in the history of present illness all others are reviewed however they do stay limited due to the patient's mental status Physical Exam Vital Signs Date Time Temp Pulse Resp B/P (MAP) Pulse Ox O2 Delivery O2 Flow Rate FiO2 06/14/19 12:01 98.1 45 18 94/58 (70) 97 Mechanical Ventilator 06/14/19 12:08 35 Sp02 EP Interpretation: reviewed, normal General Appearance: mild distress - Chronically debilitated Head: normocephalic, atraumatic Eyes: bilateral eye PERRL ENT: dry mucus membranes Neck: other - Tracheostomy in place no crepitus Respiratory: no retraction, crackles - bilaterally Cardiovascular #1: bradycardia Gastrointestinal: non tender, soft - Feeding tube in place Musculoskeletal: other - Patient contracted and lower extremities he does move right arm to physical stimuli Neurologic: responsive - Minimally to physical stimuli opens eyes Skin: other - No obvious areas of rash Lymphatic: no adenopathy Procedures Critical Care Time Critical Care Time 70 minutes for multiple re-evaluations critical presentation with bradycardia and hypotensive presentation concerning for cardiopulmonary arrest not including any procedural time Central Line Central Line : Consent: Emergent Maximal Sterile Barrier Tech: yes cap, yes mask, yes sterile gown, yes sterile gloves, yes large sterile sheet, yes hand hygiene, yes chlorhexidine prep Attempts: Other - 2 Patient Tolerated: Well Progress Please note that initial attempt of central line in the left femoral region was attempted, after the vein was accessed, the area was dilated using dilator, however the guidewire was not able to feed appropriately, and therefore the attempt was aborted. Please refer to specialty note for placement of right subclavian central line as this was placed by (general surgery) Medical Decision Making Diagnostic Impression: Primary Impression: Severe sepsis Additional Impressions: Anemia Chronic respiratory failure ER Course Given the patient's history and presentation multiple differentials and consideration including but not limited to cardiac, cardiopulmonary, metabolic pathology such as thyroid disease, electrolyte abnormality, severe infection Patient's urine sample shows positive nitrites and white blood cells x-ray also shows questionable Findings of infiltrate Patient has aggressive IV hydration broad-spectrum antibiotics initiated Requires Pressors And admission Hospital to ICU Patient's blood pressure and heart rate have improved Labs Test 06/14/19 12:30 06/14/19 14:00 06/14/19 15:00 06/15/19 06:05 White Blood Count 18.5 K/UL (4.8-10.8) 35.7 K/UL (4.8-10.8) Red Blood Count 3.64 M/UL (4.70-6.10) 2.93 M/UL (4.70-6.10) Hemoglobin 10.0 G/DL (14.2-18.0) 8.0 G/DL (14.2-18.0) Hematocrit 31.1 % (42.0-52.0) 25.0 % (42.0-52.0) Mean Corpuscular Volume 86 FL (80-99) 85 FL (80-99) Mean Corpuscular Hemoglobin 27.5 PG (27.0-31.0) 27.3 PG (27.0-31.0) Mean Corpuscular Hemoglobin Concent 32.1 G/DL (32.0-36.0) 32.0 G/DL (32.0-36.0) Red Cell Distribution Width 15.5 % (11.6-14.8) 16.0 % (11.6-14.8) Platelet Count 163 K/UL (150-450) 193 K/UL (150-450) Mean Platelet Volume 8.9 FL (6.5-10.1) 8.9 FL (6.5-10.1) Neutrophils (%) (Auto) % (45.0-75.0) % (45.0-75.0) Lymphocytes (%) (Auto) % (20.0-45.0) % (20.0-45.0) Monocytes (%) (Auto) % (1.0-10.0) % (1.0-10.0) Eosinophils (%) (Auto) % (0.0-3.0) % (0.0-3.0) Basophils (%) (Auto) % (0.0-2.0) % (0.0-2.0) Differential Total Cells Counted 100 Neutrophils % (Manual) 82 % (45-75) Lymphocytes % (Manual) 4 % (20-45) Monocytes % (Manual) 4 % (1-10) Eosinophils % (Manual) 0 % (0-3) Basophils % (Manual) 0 % (0-2) Band Neutrophils 10 % (0-8) Platelet Estimate Adequate Platelet Morphology Normal Anisocytosis 1+ Prothrombin Time 11.5 SEC (9.30-11.50) Prothromb Time International Ratio 1.1 (0.9-1.1) Activated Partial Thromboplast Time 45 SEC (23-33) Sodium Level 126 MMOL/L (136-145) Potassium Level 4.5 MMOL/L (3.5-5.1) Chloride Level 96 MMOL/L (98-107) Carbon Dioxide Level 21 MMOL/L (21-32) Anion Gap 9 mmol/L (5-15) Blood Urea Nitrogen 49 mg/dL (7-18) Creatinine 0.7 MG/DL (0.55-1.30) Estimat Glomerular Filtration Rate > 60 mL/min (>60) Glucose Level 127 MG/DL (74-106) Lactic Acid Level 2.40 mmol/L (0.4-2.0) 1.00 mmol/L (0.66-2.22) Calcium Level 9.5 MG/DL (8.5-10.1) Phosphorus Level 1.6 MG/DL (2.5-4.9) Magnesium Level 2.6 MG/DL (1.8-2.4) Total Bilirubin 0.2 MG/DL (0.2-1.0) Aspartate Amino Transf (AST/SGOT) 56 U/L (15-37) Alanine Aminotransferase (ALT/SGPT) 74 U/L (12-78) Alkaline Phosphatase 200 U/L (46-116) Total Creatine Kinase 262 U/L (26-308) Creatine Kinase MB 49.8 NG/ML (0.0-3.6) Creatine Kinase MB Relative Index 19.0 Troponin I 0.000 ng/mL (0.000-0.056) Pro-B-Type Natriuretic Peptide 353 pg/mL (0-125) Total Protein 7.1 G/DL (6.4-8.2) Albumin 2.9 G/DL (3.4-5.0) Globulin 4.2 g/dL Albumin/Globulin Ratio 0.7 (1.0-2.7) Lipase 774 U/L (73-393) Thyroid Stimulating Hormone (TSH) 5.582 uiU/mL (0.358-3.740) Free Thyroxine 1.21 NG/DL (0.76-1.46) Urine Color Yellow Urine Appearance Slightly cloudy Urine pH 7 (4.5-8.0) Urine Specific [place] 1.005 (1.005-1.035) Urine Protein 2+ (NEGATIVE) Urine Glucose (UA) Negative (NEGATIVE) Urine Ketones Negative (NEGATIVE) Urine Blood 2+ (NEGATIVE) Urine Nitrite Positive (NEGATIVE) Urine Bilirubin Negative (NEGATIVE) Urine Urobilinogen Normal MG/DL (0.0-1.0) Urine Leukocyte Esterase 3+ (NEGATIVE) Urine RBC 2-4 /HPF (0 - 0) Urine WBC 20-30 /HPF (0 - 0) Urine Squamous Epithelial Cells None /LPF (NONE/OCC) Urine Bacteria Few /HPF (NONE) EKG Diagnostic Results Rate: bradycardiac Rhythm: other ST Segments: other - Junctional bradycardia Rhythm Strip Diag. Results EP Interpretation: yes Rate: 44 Rhythm: no PVC's, other - Junctional and severe bradycardia Chest X-Ray Diagnostic Results Chest X-Ray Diagnostic Results : Chest X-Ray Ordered: Yes # of Views/Limited/Complete: 1 View Indication: Shortness of Breath EP Interpretation: Yes Interpretation: no effusion, no pneumothorax, other - Bilateral lower lobe infiltrates Impression: Other - Bilateral lobe infiltrates Electronically Signed by: Sven Salcedo DO Last Vital Signs Date Time Temp Pulse Resp B/P (MAP) Pulse Ox O2 Delivery O2 Flow Rate FiO2 06/14/19 13:13 49 17 85/49 100 Mechanical Ventilator 35 06/14/19 12:21 84.0 Status: improved Disposition: ADMITTED INPATIENT Condition: Critical Referrals: Gato Viveros DO (PCP) Sven Salcedo DO Jun 14, 2019 14:31
--- NOTE | 2019-06-14 14:34 | NUR ---
ED Nurse Note: director technical at the bed side for CXR.
[2019-06-14 14:40] LABS: APPEARANCE,URINE SLIGHTLY CLOUDY; BILIRUBIN, URINE NEGATIVE (NEGATIVE); GLUCOSE, URINE (UA) NEGATIVE (NEGATIVE); KETONES,URINE NEGATIVE (NEGATIVE); LEUKOCYTE ESTERASE ,URINE 3+ (NEGATIVE); NITRITE,URINE POSITIVE (NEGATIVE); PH,URINE 7 (4.5-8.0); PROTEIN,URINE 2+ (NEGATIVE); UROBILINOGEN,URINE NORMAL MG/DL (0.0-1.0)
[2019-06-14 14:43] LABS: COLOR,URINE YELLOW
--- NOTE | 2019-06-14 14:52 | Diagnostic Imaging Report ---
EXAM: XR Chest, 1 View CLINICAL HISTORY: LINE TECHNIQUE: Frontal view of the chest. COMPARISON: Chest x-rays obtained earlier the same date FINDINGS: Lungs: Mildly increased interstitial markings. Mild subsegmental atelectasis in the medial lung bases, unchanged. Pleural space: Unremarkable. The costophrenic angles are sharp. No visible pneumothorax. Heart: Unremarkable. No cardiomegaly. Mediastinum: Unremarkable. Bones joints: Unremarkable. Vasculature: Atherosclerotic calcifications are noted within the aortic arch. Tubes, lines and devices: Interval placement of a right subclavian central venous catheter with the tip in the region of the right atrium. Stable positioning of the tracheostomy tube. EKG leads overlie the thorax. IMPRESSION: 1. Interval placement of a right subclavian central venous catheter with the tip in the region of the right atrium. 2. Mildly increased interstitial markings. This may represent mild pulmonary vascular congestion or a mild interstitial pneumonitis. 3. Mild subsegmental atelectasis in the medial lung bases, unchanged.
[2019-06-14] MEDS ORDERED: Vancomycin 1 GM in D5W 275 ML IVPB ONE (15:00)
[2019-06-14] MEDS ORDERED: Piperacillin/Tazobactam 3.375 GM in NS 110 ML IVPB ONE (15:00)
--- NOTE | 2019-06-14 15:48 | NUR ---
ED Nurse Note: BP of 105/[address] Hunter still wants to start with dopamine drip.
--- NOTE | 2019-06-14 16:03 | NUR ---
ED Nurse Note: Report given to Rosalie HARTLEY of ICU.
--- NOTE | 2019-06-14 16:03 | NUR ---
Liz dey in EDM - 06/14/19 at 1652 by KIRA ED Nurse Note: Report given to Yue HARTLEY of ICU.
--- NOTE | 2019-06-14 16:09 | NUR ---
Liz dey in EDM - 06/14/19 at 1652 by KIRA ED Nurse Note: Pt transferred to ICU mariano RT, staff cytotechnologist and primary RN. Endorsed to ralph Walker rectal temp re-check of 85.5 F.
--- NOTE | 2019-06-14 16:09 | NUR ---
ED Nurse Note: Pt transferred to ICU with RT, inventory technician and primary RN. Endorsed to Rosalie HARTLEY rectal temp re-check of 85.5 F with vancomycin 1grm and running drip of levophed at 14mcg/kg/min and dopamine at 2mcg.
[2019-06-14] MEDS ORDERED: Amikacin Rx to dose MISC PRN (16:45)
--- NOTE | 2019-06-14 17:00 | NUR ---
NURSE NOTES: Patient is a 68 years old male admitted for cardiac arrhythmia. Report received from ,Khalida HARTLEY. Patient is hypothermic and was received with a Tuan huger and rectal temperature at 86.1F at this time.Patient also received with levophed drip at 14mcg and dopamine drip at 2mcg running on right subclavian central line.Patient is a trach/vent portex 8, AC 14 VT 600 FiO2 35% and Peep 5.Patient is verbally unresponsive,unable to follows commands but responsive to painful stimuli.Sinus bradycardia 47 and hypotension SBP 80 on the monitor.Abdomen round and distended, hypoactive bowel sounds in all 4 quadrants.All belongings verified and no iglesias, no denture, no cells phones, no clothes.Skin assessment done, patient kept clean and dry.Call light within easy reach.Will continue close monitoring.
[2019-06-14] MEDS ORDERED: Atropine Inj 1mg/10ml Syr ONE (17:13)
--- NOTE | 2019-06-14 17:14 | NUR ---
NURSE NOTES: Patient HR dropped to 38, on max dopamine 20mcg and levophed 30mcg.Dr Zuri maki f, will follow up with new orders
--- NOTE | 2019-06-14 17:20 | NUR ---
NURSE NOTES: ONE TIME ORDER RECEIVED FROM DR WILLOUGHBY FOR 1MG ATROPINE.ATROPINE GIVEN AND HR AT 57 AT THIS TIME.PT KEPT ON CLOSE MONITORING
--- NOTE | 2019-06-14 17:23 | NUR ---
NURSE NOTES: Patient's HR dropped to SB 38-42. Called Dr Keating and received an order for STAT Atropine 1 mg x 1. Given in the IO. Pt immediately responded to initially HR 60s now HR 69-70. Pt is max Levo and max Dopa. SBP was 80s. Will con't to closely monitor and follow plan of care.
--- NOTE | 2019-06-14 17:26 | NUR ---
RESPIRATORY NOTE: Received pt in ER on vent setting of AC 14 VT 600 35% FIO2 PEEP of 5 on portex 8. Pt vent dependent. Pt is bradychardic and sating 100%. Dr ordered new setting of AC 16 VT 600 35% FIO2 and 0 PEEP. Patient rhonchi bilaterally. Suctioning moderate yellow owens thick secretions. Ambu bag at bed side. Alarms are on and audible and vent connected to red outlet. Will continue to monitor.
[2019-06-14] MEDS ORDERED: Atropine Inj 1mg/10ml Syr IVP ONE ×2 (17:30)
[2019-06-14] MEDS ORDERED: Amikacin 1,000 MG in NS 110 ML IV SCH (18:00)
--- NOTE | 2019-06-14 18:21 | NUR ---
NURSE NOTES: PT BLOOD PRESSURE AT THIS TIME 122/53 AND HR 93, LEVOPHED AND DOPAMINE TITRATED DOWN TOLERATED. WILL CONTINUE TO MONITOR
--- NOTE | 2019-06-14 18:58 | NUR ---
RESPIRATORY NOTE: Received pt on AC 16, 600VT, 35%,no PEEP. Pt is trach-dependent w/ a cuffed, Portex 8 tube. Pt is asleep/flateffect/disoriented. B/S nora. rhonchi, sxn small to moderate amounts of thick, owens-yellow secretions. Vent plugged into red outlet, ambubag at bedside. Pt in no apparent distress at this time. Will continue to monitor pt.
--- NOTE | 2019-06-14 19:55 | NUR ---
HAND-OFF: Report given to ODILIA Maldonado.
--- NOTE | 2019-06-14 20:00 | NUR ---
NURSE NOTES: PATIENT LETHARGIC, RESPONSE TO DEEP PAIN, WEAKLY SQUEEZING FACE AT THIS TIME, ON TRACH TO VENT AC14/TV600/FIO2 35%, O2 SATURATION OVER 97% NOTED, ABDOMEN DISTENDED, G TUBE INTACT AND CLAMP STATUS, CONDOM GREGG STATUS, CONTRACTED LOWER EXTREMITIES, ON TERRIE HUGGER, TLC TO RIGHT SUBCLAVIAN, INTACT WITHOUT SUTURE, ONGOING LEVOPHED 30MCG/MIN AND NS AT 100ML/HR, MADE LOWER BE POSITION AND SZ PRECAUTION, WILL CONTINUE TO MONITOR.
[2019-06-14] MEDS ORDERED: Dyna-Hex 2% Top Sol 2oz TOPIC SCH (20:15)
[2019-06-14] MEDS: Heparin 5000 units/ml inj SUBQ SCH (21:00)
[2019-06-14] MEDS: Ertapenem 1 GM in NS 55 ML IV SCH (21:12)
[2019-06-14] MEDS: Phenylephrine 50 MG in D5W 245 ML IV SCH (22:00)
--- NOTE | 2019-06-14 22:00 | NUR ---
NURSE NOTES: BP 69/43MMHG NOTED, STARTED PHENYLEPHRINE 20MCG/MIN VIA RIGHT SC TLC, WILL CONTINUE TO MONITOR.
[2019-06-14] MEDS ORDERED: Vancomycin 1 GM in D5W 275 ML IV SCH (23:45)
[2019-06-15] VITALS (63 sets, daily range): BP systolic 73–116; BP diastolic 41–82
--- NOTE | 2019-06-15 | NUR ---
NURSE NOTES: RELEASED RESTRAINTS AND REAPPLIED, HYPOACTIVE BOWEL SOUND TO 4 QUADRANTS, NO BM STATUS.
--- NOTE | 2019-06-15 02:10 | NUR ---
NURSE NOTES: DARK COKE COLOR EMESIS NOTED, ASPIRATION VIA G TUBE 400ML OUTED, ORAL CARE WAS DONE, KEPT HOB OVER 30 DEGREES.
--- NOTE | 2019-06-15 02:37 | NUR ---
NURSE NOTES: GIVEN ZOFRAN 4MG BY IVP PRN ORDERED FOR EMESIS.
--- NOTE | 2019-06-15 04:00 | NUR ---
NURSE NOTES: MORNING CARE WAS DONE.
[2019-06-15] MEDS: Phenylephrine 50 MG in D5W 245 ML IV SCH ×4 (04:04→20:36)
[2019-06-15] MEDS: Vancomycin 750mg/NS 275ml IVPB SCH ×4 (04:04→15:15)
--- NOTE | 2019-06-15 04:18 | NUR ---
NURSE NOTES: CALLED DR. WILLOUGHBY REGARDING EMESIS, CURRENT BP 88/56 ON LEVOPHED AND PHENYLEPHRINE MAXIMUM DOSE THAT LEFT MESSAGE.
--- NOTE | 2019-06-15 06:31 | NUR ---
NURSE NOTES: PATIENT GENERALIZED EDEMATOUS, SUCTIONED THICK GREENISH BROWN KATZ COLOR OUTED, DARK COFFEE COLOR DISCHARGE OUTED VIA TRACH SITE, KEPT HOB 30 DEGREES, WILL CONTINUE PLAN OF CARE.
[2019-06-15 06:44] LABS: MEAN CORPUSCULAR VOLUME 85 FL (80-99); PLATELET COUNT 193 K/UL (150-450); RED BLOOD COUNT 2.93 M/UL (4.70-6.10)
[2019-06-15 06:51] LABS: WHITE BLOOD COUNT 35.7 K/UL (4.8-10.8)
--- NOTE | 2019-06-15 07:00 | NUR ---
RESPIRATORY NOTES: Received Patient on Mechanical Ventilator settings RR 16, VT 600, FIO2 35%, PEEP +0. 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 Patient is obtundent, showing no signs of distress. Bilateral rhonchi is heard throughout both lungs, in all lung wiseman. Suctioned a large amount of thick green secretions thorough trache. Alarms are on and audible. Vent plugged into red outlet. Will continue to closely monitor throughout the day.
[2019-06-15 07:08] LABS: ALANINE AMINOTRANSFERASE 68 U/L (12-78); ALBUMIN/GLOBULIN RATIO 0.5 (1.0-2.7); ALKALINE PHOSPHATASE 148 U/L (46-116); ANION GAP 10 mmol/L (5-15); ASPARTATE AMINO TRANSFERASE 56 U/L (15-37); BILIRUBIN,DIRECT 0.2 MG/DL (0.0-0.3); BILIRUBIN,TOTAL 0.3 MG/DL (0.2-1.0); BLOOD UREA NITROGEN 47 mg/dL (7-18); CALCIUM 7.9 MG/DL (8.5-10.1); CARBON DIOXIDE 16 MMOL/L (21-32); CHLORIDE 100 MMOL/L (98-107); CREATININE 1.2 MG/DL (0.55-1.30); POTASSIUM 5.5 MMOL/L (3.5-5.1); SODIUM 126 MMOL/L (136-145)
--- NOTE | 2019-06-15 07:27 | NUR ---
HAND-OFF: Report given to ODILIA BARRAGAN.
--- NOTE | 2019-06-15 07:35 | NUR ---
NURSE NOTES: Report received from Piter HARTLEY. Pt awake, nonverbal, eyes open with tracking. Pt contracted with limited range of motion. Pt SR on surveillance system monitor. Pt trache to vent portex 8, AC 14, TV 600, 35% FIO2, no PEEP. GT to intermittent suction. Condom cath noted and intact. Subclavian TLC noted and intact with NS at 100 cc/hr, Levophed at 30 mcg/hr and neosynephrine at 240 mcg/hr. Safety measures in place with bed locked and in lowest position, side rails x3 up and bed alarm on. Will continue to monitor and continue plan of care. Addendum: 06/15/19 at 0958 by Danielle Hawkins RN Bilateral soft wrist restraints noted and intact. No injury noted.
[2019-06-15] MEDS: Heparin 5000 units/ml inj SUBQ SCH ×2 (08:17→21:14)
[2019-06-15] MEDS ORDERED: Pantoprazole Inj IVP SCH (09:00)
[2019-06-15] MEDS: Vancomycin oral 125mg/2.5ml GT SCH ×2 (09:15→17:06)
--- NOTE | 2019-06-15 09:41 | NUR ---
NURSE NOTES: Discussed with Dr Keating about WBC 35.6 and K 5.5. Flagyl IV and Vanco per GT ordered. Pt suctioned in trache and oral care done.Will continue to monitor.
--- NOTE | 2019-06-15 09:56 | Diagnostic Imaging Report ---
EXAM: XR Chest, 1 View CLINICAL HISTORY: DYSPNEA TECHNIQUE: Frontal view of the chest. COMPARISON: Chest x-ray dated 06 14 19 FINDINGS: Lungs: Persistent increased interstitial markings, which may be related to pulmonary vascular congestion versus interstitial pneumonitis. Subsegmental atelectasis versus infiltrate in the medial left lung base. Pleural space: Unremarkable. The costophrenic angles are sharp. No visible pneumothorax. Heart: Unremarkable. No cardiomegaly. Mediastinum: Unremarkable. Bones joints: Unremarkable. Vasculature: Atherosclerotic calcifications are noted within the aortic arch. Tubes, lines and devices: Stable positioning of the tracheostomy tube and right superior and central venous catheter. Telemetry leads overlie the thorax. IMPRESSION: 1. No significant interval change from the prior chest x-ray. 2. Persistent increased interstitial markings, which may be related to pulmonary vascular congestion versus interstitial pneumonitis. 3. Subsegmental atelectasis versus infiltrate in the medial left lung base.
--- NOTE | 2019-06-15 11:27 | Consultation ---
Consult Note Consult Note asked to eval at the request of Dr Viveros Patient presents by paramedics for reports of low blood pressure and bradycardia patient is from nursing facility and chronically debilitated with Tracheostomy and Ventilator dependence Patient himself is nonverbal this does limit the history of present illness significantly there was no reports of vomiting or diarrhea Patient's medication list is being reviewed There was no reports of trauma Patient is bedbound NO KNOWN DRUG ALLERGIES (Verified Allergy, Unknown, 09/11/16) Hx Cardiac Problems: Yes Hx Hypertension: Yes Hx Asthma: No - hypothyroidism Hx COPD: No - vent dependent Hx Diabetes: Yes - type 2 Hx Gastrointestinal Problems: Yes - Gastrostomy Tube Hx Dialysis: Yes Hx Neurological Problems: Yes Hx Cerebrovascular Accident: Yes Hx Transient Ischemic Attacks: Yes Hx Dementia: Yes Hx Alzheimer's Disease: Yes Hx Parkinson's Disease: Yes Hx Encephalitis: Yes Hx Seizures: Yes Hx Epilepsy: Yes Hx Paralysis: Yes - HEMIPLEGIA Hx Memory Loss: Yes Hx Concentration Difficulty: Yes Hx Speech Problem: Yes Hx Aphasia: Yes Hx Weakness: Yes Hx Fatigue: Yes Assessment/Plan Sepsis Shock on pressors GI Bleed Low Na and high K UTI HypoThyroidism Tracheostomy dependence Respiratory failure, [id number] Alzheimer's Feeding by G-tube fluid challenge IV fluids transfuse if needed Monitor lytes and renal parametrs urine studies Sav Salvador MD Jun 15, 2019 11:27
--- NOTE | 2019-06-15 11:30 | NUR ---
CASE MANAGEMENT: INITIAL REVIEW 68 YO M ASHLEE FROM [facility] [place] CC: BRADYCARDIA. HYPOTENSION. PMHx: MECH VENT. GTUBE. SI:CARDIAC ARRHYTHMIA. T 98.1 HR 45 RR 18 B/P 94/58 SATS 97% ON MECH VENT FIO2 35 WBC 18.5 NA 126 CL 96 BUN 49 GLU 127 PHOS 1.6 MG 2.6 AST 56 ALP 200 CKMB 49.8 LIPASE 774 IS:NS BOLUS X1 ATROPINE IV 2 PATIENT ADMITTED TO ICU 06/14/2019 @ 1423 DCP: PATIENT TO BE DISCHARGED TO SNF ONCE MEDICALLY CLEARED. PLAN OF CARE: Date of Operation/Procedure: Jun 14, 2019 Pre-op Diagnosis: sepsis, tachycardia, hypotension Procedure: right subclavian central venous catheter insertion Post-op Diagnosis: same as pre-op 06/15/2019 SI:CARDIAC ARRHYTHMIA. T 97.6 HR 99 RR 29 B/P 88/51 SATS 97% ON MECH VENT FIO2 35 WBC 35.7 NA 126 K 5.5 CO2 16 BUN 47 CA 7.9 AST 56 ALP 148 ABGs PH 7.301 PCO2 31.3 PO2 50.3 HCO3 15.1 O2 SAT 83.7 BE -10.3 IS:IVF @ 100 mL/HR PROTONIX IV QD VANCO IV Q12H ERTAPENEM IV Q24H LEVOPHED PER PARAMETERS PHENYLEPHRINE PER PARAMETERS FLAGYL IV Q8H VANCO GT Q8H ICU STATUS DCP: PATIENT TO BE DISCHARGED TO SNF ONCE MEDICALLY CLEARED. Addendum: 06/15/19 at 1238 by Christie Francis CM INTERDENIAL
--- NOTE | 2019-06-15 11:30 | NUR ---
NURSE NOTES: Dr Salvador here to see pt. Labs ordered. IVF changed to d5NS. Pt suctioned and repositioned. Titrate down on levophed 28 mcg/hr and neosynephrine 20 mcg/hr. Addendum: 06/15/19 at 1359 by Danielle Hawkins RN correction noah at 120 mcg/hr.
--- NOTE | 2019-06-15 11:32 | Consultation ---
History of Present Illness General Date patient seen: Jun 15, 2019 Chief Complaint: General Complaint Reason for Consultation: Septic shock Present Illness HPI Mr. Huffman is a 68 yo male with PMHx of of chronic resp failure trach/vent dependant, diffuse ulcerative esophagitis, peptic esophageal stricture, asthma, GERD, Dm2, CVA/TIA w/ hemiplegia, functional quadriplegia, CAD, CHF, ESBL UTI , GIB s/p multiple EGDs in the past, schizoaffective disorder, Dementia, hypothyroidism, malnutrition, non verbal, infected obstuctive ureterolithiasis/ w abscess s/p L NT palced 12/2018, encephalopathy, Alzheimer's disease, multiple admissions, subacute facility resident who was sent to the for hypotension and bradycardia. In the ED he was placed on pressors and broadspectrum abx. He was admitted to the ICU. WBCs have increased to 36 and he is afebrile. Blood Cx pending but urine growing GNR. ID was consulted for Sepsis PMHx/PSHx See above SocHx No E/T/D FamHx Not Contributory Allergies: Coded Allergies: NO KNOWN DRUG ALLERGIES (Verified Allergy, Unknown, 09/11/16) Medication History Scheduled Ascorbic Acid* (Vitamin C*), 500 MG GT DAILY, (Reported) Cranberry Extract (Cranberry), 425 MG GT BID, (Reported) Docusate Sodium* (Docusate Sodium*), 100 MG GT DAILY, (Reported) Ferrous Sulfate (Ferrous Sulfate), 7.5 ML GT THREE TIMES A DAY, (Reported) Levothyroxine Sodium* (Synthroid*), 150 MCG GT DAILY, (Reported) Multivitamin Liquid* (Multi-Delyn*), 15 ML GT DAILY, (Reported) Polyethylene Glycol 3350* (Miralax*), 17 GM ORAL DAILY, (Reported) Sucralfate (Sucralfate), 10 ML GT FOUR TIMES A DAY, (Reported) Scheduled PRN Acetaminophen (Acetaminophen), 640 MG GT Q4HR PRN for Prn Headache/Temp > 101, ( Reported) Acetaminophen* (Acetaminophen*), 640 MG GT Q4HR PRN for For Pain, (Reported) Patient History Healthcare decision maker NO FAMILY Resuscitation status Full Code Advanced Directive on File Yes Review of Systems ROS Narrative Unable to obtain as patient not verbal Physical Exam Physical Exam Narrative Gen: On vent in IVU HEENT: NCAT, MMM, PERRL, No Oral lesion, no scleral icterus NECK: supple, No LAD, No JVD, Trached LUNGS: Coarse B/L, No W/C CARDS: RRR, S1, S2, No M/R/G, ABD: Soft, NT, ND, No R/G, + BS, No HSM, No Masses, PEG : Deferred Ext: C/C/E, Pulses 2+ B/L (DP, Rad): NEURO: A/O x 0, no following SKIN: Warm/dry, No rashes Last 24 Hour Vital Signs Date Time Temp Pulse Resp B/P (MAP) Pulse Ox O2 Delivery O2 Flow Rate FiO2 06/15/19 11:00 77 21 92/55 (67) 99 06/15/19 10:31 80 21 35 06/15/19 10:30 81 20 98/52 (67) 100 06/15/19 10:00 82 22 93/59 (70) 99 06/15/19 09:30 81 23 103/63 (76) 99 06/15/19 09:00 89 22 116/53 (74) 99 06/15/19 08:41 87 25 35 06/15/19 08:30 90 24 105/49 (67) 99 06/15/19 08:00 95 06/15/19 08:00 Mechanical Ventilator 06/15/19 08:00 99.9 89 23 110/50 (70) 98 06/15/19 08:00 35 06/15/19 07:57 88 103/55 06/15/19 07:35 103/55 06/15/19 07:30 88 23 77/46 (56) 98 06/15/19 07:00 95 25 103/55 (71) 100 06/15/19 06:54 96 21 35 06/15/19 06:30 98 24 97/50 (66) 99 06/15/19 06:15 94 25 92/54 (67) 99 06/15/19 06:00 96 23 101/55 (70) 99 06/15/19 05:45 98 24 91/54 (66) 99 06/15/19 05:30 99 22 92/56 (68) 99 06/15/19 05:02 98 24 35 06/15/19 05:00 97 23 88/53 (65) 99 06/15/19 05:00 88/53 06/15/19 04:45 100 24 91/53 (66) 98 06/15/19 04:30 102 27 93/50 (64) 99 06/15/19 04:15 103 27 89/56 (67) 98 06/15/19 04:10 102 06/15/19 04:04 101 88/57 06/15/19 04:00 99.2 101 25 88/57 (67) 99 06/15/19 04:00 35 06/15/19 04:00 88/57 06/15/19 04:00 Mechanical Ventilator 06/15/19 03:45 100 25 83/63 (70) 99 06/15/19 03:30 99 26 95/59 (71) 99 06/15/19 03:15 101 25 88/56 (67) 99 06/15/19 03:00 100 26 88/55 (66) 99 06/15/19 03:00 88/55 06/15/19 02:59 100 26 35 06/15/19 02:45 95 27 79/47 (58) 98 06/15/19 02:38 83/45 06/15/19 02:30 98 29 83/45 (58) 98 06/15/19 02:15 102 30 73/43 (53) 98 06/15/19 02:10 102 30 81/48 (59) 98 06/15/19 02:00 102 28 77/48 (58) 97 06/15/19 02:00 77/48 06/15/19 01:45 106 26 81/45 (57) 97 06/15/19 01:41 97 21 100/59 (73) 96 06/15/19 01:30 101 27 79/46 (57) 97 06/15/19 01:15 101 28 91/53 (66) 97 06/15/19 01:00 93/55 06/15/19 01:00 104 27 93/55 (68) 96 06/15/19 00:49 97 28 35 06/15/19 00:45 97 29 87/51 (63) 97 06/15/19 00:45 87/51 06/15/19 00:30 84/54 06/15/19 00:30 96 29 84/54 (64) 97 06/15/19 00:15 97 30 89/53 (65) 97 06/15/19 00:00 97.6 99 29 88/51 (63) 97 06/15/19 00:00 35 06/15/19 00:00 Mechanical Ventilator 06/14/19 23:46 96 26 80/45 (57) 97 06/14/19 23:45 97 26 79/48 (58) 97 06/14/19 23:36 99 06/14/19 23:30 102 26 100/52 (68) 95 06/14/19 23:20 88/49 06/14/19 23:20 98 29 88/49 (62) 97 06/14/19 23:17 97 26 77/47 (57) 97 06/14/19 23:15 97 26 79/48 (58) 97 06/14/19 23:15 79/48 06/14/19 23:04 100 16 35 06/14/19 23:00 91/52 06/14/19 23:00 98 26 91/52 (65) 98 06/14/19 22:45 95 29 94/46 (62) 97 06/14/19 22:30 95 27 92/50 (64) 97 06/14/19 22:15 95 25 89/56 (67) 98 06/14/19 22:13 69/43 06/14/19 22:10 94 24 112/50 (70) 98 06/14/19 22:00 95.5 89 27 69/43 (52) 97 06/14/19 22:00 95 92/56 06/14/19 21:30 92 27 82/49 (60) 97 06/14/19 21:15 91 28 95/47 (63) 98 06/14/19 21:00 87 26 87/49 (62) 99 06/14/19 21:00 87/49 06/14/19 20:51 82 22 35 06/14/19 20:37 82 06/14/19 20:30 82 22 91/49 (63) 99 06/14/19 20:00 Mechanical Ventilator 06/14/19 20:00 100/46 06/14/19 20:00 92.6 78 20 100/46 (64) 99 06/14/19 20:00 35 10/5/19 19:30 61/39 06/14/19 19:30 70 17 61/39 (46) 99 06/14/19 19:00 119/56 06/14/19 19:00 95 16 119/56 (77) 99 06/14/19 18:55 94 16 35 06/14/19 18:45 122/56 06/14/19 18:30 122/56 06/14/19 18:15 122/53 06/14/19 18:00 125/51 06/14/19 17:30 129/52 06/14/19 17:15 144/68 06/14/19 17:04 Mechanical Ventilator 06/14/19 17:00 80/50 06/14/19 16:38 60 16 35 06/14/19 16:09 85.5 45 18 115/55 100 Mechanical Ventilator 35 06/14/19 15:53 115/55 06/14/19 15:42 43 16 102/58 100 Mechanical Ventilator 35 06/14/19 15:42 102/58 06/14/19 15:37 44 16 109/56 100 Mechanical Ventilator 35 06/14/19 15:37 109/56 06/14/19 15:32 94/48 06/14/19 15:32 44 16 94/48 100 Mechanical Ventilator 35 06/14/19 15:27 101/58 06/14/19 15:27 46 16 101/58 100 Mechanical Ventilator 35 06/14/19 15:26 48 17 35 06/14/19 15:22 77/50 06/14/19 15:22 48 15 77/50 100 Mechanical Ventilator 35 06/14/19 15:17 68/44 06/14/19 15:17 44 16 68/44 100 Mechanical Ventilator 35 06/14/19 15:12 46 16 98/43 99 Mechanical Ventilator 35 06/14/19 15:12 98/43 06/14/19 15:07 89/50 06/14/19 15:07 46 14 89/50 100 Mechanical Ventilator 35 06/14/19 15:02 46 15 69/43 100 Mechanical Ventilator 35 06/14/19 15:02 69/43 06/14/19 14:57 47 18 74/45 100 Mechanical Ventilator 35 06/14/19 14:57 74/45 06/14/19 14:00 48 15 74/45 100 Mechanical Ventilator 35 06/14/19 13:13 49 17 85/49 100 Mechanical Ventilator 35 06/14/19 12:30 35 06/14/19 12:21 84.0 45 15 94/58 100 Mechanical Ventilator 35 06/14/19 12:21 45 15 Mechanical Ventilator 35 06/14/19 12:08 45 17 35 06/14/19 12:08 45 17 100 Mechanical Ventilator 35 06/14/19 12:01 98.1 45 18 94/58 (70) 97 Mechanical Ventilator Intake and Output 06/14/19 06/15/19 19:00 07:00 Intake Total 1740.50 ml 3298.5 ml Output Total 870 ml Balance 1740.50 ml 2428.5 ml Intake IV Total 1740.50 ml 3298.5 ml Output Urine Total 370 ml Gastric Drainage Total 500 ml # Voids 1 Laboratory Tests Test 06/14/19 12:30 06/14/19 14:00 06/14/19 15:00 06/15/19 06:05 White Blood Count 18.5 K/UL (4.8-10.8) H 35.7 K/UL (4.8-10.8) #*H Red Blood Count 3.64 M/UL (4.70-6.10) L 2.93 M/UL (4.70-6.10) L Hemoglobin 10.0 G/DL (14.2-18.0) L 8.0 G/DL (14.2-18.0) L Hematocrit 31.1 % (42.0-52.0) L 25.0 % (42.0-52.0) L Mean Corpuscular Volume 86 FL (80-99) 85 FL (80-99) Mean Corpuscular Hemoglobin 27.5 PG (27.0-31.0) 27.3 PG (27.0-31.0) Mean Corpuscular Hemoglobin Concent 32.1 G/DL (32.0-36.0) 32.0 G/DL (32.0-36.0) Red Cell Distribution Width 15.5 % (11.6-14.8) H 16.0 % (11.6-14.8) H Platelet Count 163 K/UL (150-450) 193 K/UL (150-450) Mean Platelet Volume 8.9 FL (6.5-10.1) 8.9 FL (6.5-10.1) Neutrophils (%) (Auto) % (45.0-75.0) % (45.0-75.0) Lymphocytes (%) (Auto) % (20.0-45.0) % (20.0-45.0) Monocytes (%) (Auto) % (1.0-10.0) % (1.0-10.0) Eosinophils (%) (Auto) % (0.0-3.0) % (0.0-3.0) Basophils (%) (Auto) % (0.0-2.0) % (0.0-2.0) Differential Total Cells Counted 100 100 Neutrophils % (Manual) 82 % (45-75) H 67 % (45-75) Lymphocytes % (Manual) 4 % (20-45) L 3 % (20-45) L Monocytes % (Manual) 4 % (1-10) 4 % (1-10) Eosinophils % (Manual) 0 % (0-3) 0 % (0-3) Basophils % (Manual) 0 % (0-2) 0 % (0-2) Band Neutrophils 10 % (0-8) H 25 % (0-8) H Platelet Estimate Adequate Adequate Platelet Morphology Normal Normal Anisocytosis 1+ 1+ Prothrombin Time 11.5 SEC (9.30-11.50) Prothromb Time International Ratio 1.1 (0.9-1.1) Activated Partial Thromboplast Time 45 SEC (23-33) H Sodium Level 126 MMOL/L (136-145) L 126 MMOL/L (136-145) L Potassium Level 4.5 MMOL/L (3.5-5.1) 5.5 MMOL/L (3.5-5.1) H Chloride Level 96 MMOL/L (98-107) L 100 MMOL/L (98-107) Carbon Dioxide Level 21 MMOL/L (21-32) 16 MMOL/L (21-32) L Anion Gap 9 mmol/L (5-15) 10 mmol/L (5-15) Blood Urea Nitrogen 49 mg/dL (7-18) H 47 mg/dL (7-18) H Creatinine 0.7 MG/DL (0.55-1.30) 1.2 MG/DL (0.55-1.30) # Estimat Glomerular Filtration Rate > 60 mL/min (>60) 59.9 mL/min (>60) Glucose Level 127 MG/DL (74-106) H 102 MG/DL (74-106) Lactic Acid Level 2.40 mmol/L (0.4-2.0) H 1.00 mmol/L (0.66-2.22) Calcium Level 9.5 MG/DL (8.5-10.1) 7.9 MG/DL (8.5-10.1) L Phosphorus Level 1.6 MG/DL (2.5-4.9) L Magnesium Level 2.6 MG/DL (1.8-2.4) H Total Bilirubin 0.2 MG/DL (0.2-1.0) 0.3 MG/DL (0.2-1.0) Aspartate Amino Transf (AST/SGOT) 56 U/L (15-37) H 56 U/L (15-37) H Alanine Aminotransferase (ALT/SGPT) 74 U/L (12-78) 68 U/L (12-78) Alkaline Phosphatase 200 U/L (46-116) H 148 U/L (46-116) H Total Creatine Kinase 262 U/L (26-308) Creatine Kinase MB 49.8 NG/ML (0.0-3.6) H Creatine Kinase MB Relative Index 19.0 Troponin I 0.000 ng/mL (0.000-0.056) Pro-B-Type Natriuretic Peptide 353 pg/mL (0-125) H Total Protein 7.1 G/DL (6.4-8.2) 5.9 G/DL (6.4-8.2) L Albumin 2.9 G/DL (3.4-5.0) L 2.0 G/DL (3.4-5.0) L Globulin 4.2 g/dL 3.9 g/dL Albumin/Globulin Ratio 0.7 (1.0-2.7) L 0.5 (1.0-2.7) L Lipase 774 U/L (73-393) H Thyroid Stimulating Hormone (TSH) 5.582 uiU/mL (0.358-3.740) Free Thyroxine 1.21 NG/DL (0.76-1.46) Urine Color Yellow Urine Appearance Slightly cloudy Urine pH 7 (4.5-8.0) Urine Specific [place] 1.005 (1.005-1.035) Urine Protein 2+ (NEGATIVE) H Urine Glucose (UA) Negative (NEGATIVE) Urine Ketones Negative (NEGATIVE) Urine Blood 2+ (NEGATIVE) H Urine Nitrite Positive (NEGATIVE) H Urine Bilirubin Negative (NEGATIVE) Urine Urobilinogen Normal MG/DL (0.0-1.0) Urine Leukocyte Esterase 3+ (NEGATIVE) H Urine RBC 2-4 /HPF (0 - 0) H Urine WBC 20-30 /HPF (0 - 0) H Urine Squamous Epithelial Cells None /LPF (NONE/OCC) Urine Bacteria Few /HPF (NONE) Metamyelocytes % 1 % (0-0) H Direct Bilirubin 0.2 MG/DL (0.0-0.3) Random Amikacin Level 24.9 ug/mL Test 06/15/19 08:28 Arterial Blood pH 7.301 (7.350-7.450) Arterial Blood Partial Pressure CO2 31.3 mmHg (35.0-45.0) L Arterial Blood Partial Pressure O2 50.3 mmHg (75.0-100.0) L Arterial Blood HCO3 15.1 mmol/L (22.0-26.0) *L Arterial Blood Oxygen Saturation 83.7 % (95-100) *L Arterial Blood Base Excess -10.3 (-2-2) *L Ger Test Positive Microbiology Date/Time Source Procedure Growth Status 06/14/19 13:00 Nasal Nares MRSA Culture - Final Staphylococcus Aureus - Mrsa Complete 06/14/19 14:00 Urine,Clean Catch Urine Culture - Preliminary Gram Negative Bacillus 1 Resulted Height (Feet): 5 Height (Inches): 8.00 Weight (Pounds): 151 Medications Current Medications Medications (Trade) Dose Ordered Sig/Wanda Route PRN Reason Start Time Stop Time Status Last Admin Dose Admin Acetaminophen (Tylenol) 650 mg Q4H PRN GT fever (temp>100.5F) 06/14/19 14:30 07/14/19 14:29 Albuterol/ Ipratropium (Albuterol/ Ipratropium) 3 ml Q4H PRN HHN Shortness of Breath 06/14/19 14:30 06/19/19 14:29 Amikacin Protocol (Amikacin pharmacy to dose) 1 ea DAILY PRN MISC PER RX PROTOCOL 06/14/19 16:45 07/14/19 16:44 Chlorhexidine Gluconate (Jasmin-Hex 2%) 1 applic DAILY@2000 TOPIC 06/15/19 20:00 07/15/19 19:59 Ertapenem 1 gm/ Sodium Chloride 55 ml @ 110 mls/hr Q24H IV 06/14/19 21:00 06/15/19 20:59 06/14/19 21:12 Heparin Sodium (Porcine) (Heparin 5000 units/ml) 5,000 units EVERY 12 HOURS SUBQ 06/14/19 21:00 07/14/19 20:59 06/14/19 21:00 Levothyroxine Sodium (Synthroid) 150 mcg DAILY GT 06/15/19 09:00 07/15/19 08:59 06/15/19 08:17 Lorazepam (Ativan 2mg/ml 1ml) 2 mg Q2H PRN IV For Anxiety 06/14/19 14:30 06/21/19 14:29 Metronidazole 100 ml @ 100 mls/hr Q8H IVPB 06/15/19 09:00 06/22/19 08:59 06/15/19 09:15 Morphine Sulfate (Morphine Sulfate) 4 mg Q4H PRN IVP Severe Pain (Pain Scale 7-10) 06/14/19 14:30 06/21/19 14:29 Norepinephrine Bitartrate 8 mg/ Dextrose 500 ml @ 0 mls/hr Q24H IV 06/14/19 23:00 07/14/19 22:59 06/15/19 07:35 Ondansetron HCl (Zofran) 4 mg Q6H PRN IVP Nausea & Vomiting 06/14/19 14:30 07/14/19 14:29 06/15/19 02:37 Pantoprazole (Protonix) 40 mg DAILY IVP 06/15/19 09:00 07/15/19 08:59 06/15/19 08:17 Phenylephrine HCl 50 mg/Dextrose 250 ml @ 0 mls/hr Q24H IV 06/14/19 21:00 07/14/19 20:59 06/15/19 07:57 Polyethylene Glycol (Miralax) 17 gm DAILYPRN PRN GT Constipation 06/14/19 14:30 07/14/19 14:29 Sodium Chloride 1,000 ml @ 100 mls/hr Q10H IVLG 06/14/19 16:45 07/14/19 16:44 06/15/19 02:38 Vancomycin HCl (Firvanq) 250 mg Q8H GT 06/15/19 09:00 06/22/19 08:59 06/15/19 09:15 Vancomycin HCl (Vanco rx to dose) 1 ea DAILY PRN MISC PER RX PROTOCOL 06/14/19 16:45 07/14/19 16:44 Vancomycin HCl 750 mg/Sodium Chloride 275 ml @ 183.333 mls/hr Q12HR@0400,1600 IVPB 06/15/19 04:00 06/20/19 03:59 06/15/19 04:04 Assessment/Plan Assessment/Plan: Mr. Huffman is a 68 yo male with PMHx of of chronic resp failure trach/vent dependant, diffuse ulcerative esophagitis, peptic esophageal stricture, asthma, GERD, Dm2, CVA/TIA w/ hemiplegia, functional quadriplegia, CAD, CHF, ESBL UTI , GIB s/p multiple EGDs in the past, schizoaffective disorder, Dementia, hypothyroidism, malnutrition, non verbal, infected obstuctive ureterolithiasis/ w abscess s/p L NT palced 12/2018, encephalopathy, Alzheimer's disease, multiple admissions, subacute facility resident who was sent to the for hypotension and bradycardia. Septic Shock On multiple pressors Hx of resistant infections Urine Cx 06/14/19 - GNR Blood Cx - Pend CXR show probable pna Leukocytosis No fever Chronic resp failure trach/vent dependant asthma Dm2 CVA/TIA w/ hemiplegia Functional quadriplegia CAD CHF GIB s/p multiple EGDs in the past Schizoaffective disorder Dementia Hypothyroidism Non verbal Alzheimer's disease PLAN: - Continue Amikacin #1 and Ertapenem #1 and Vancomycin #1 - pending Cx - f/u cultures B + U - monitor CBC and Temps Thank you for this consult. [facility] will continue to follow the patient with you during this hospitalization. John Fiore MD Jun 15, 2019 11:32
[2019-06-15] MEDS: D5NS 1,000 ML IV SCH ×2 (12:04→21:12)
[2019-06-15 12:12] LABS: FERRITIN 635 NG/ML (8-388)
[2019-06-15] MEDS ORDERED: Tubing IV Secondary IV ONE (12:13)
[2019-06-15] MEDS ORDERED: NS 275ml ONE (12:13)
--- NOTE | 2019-06-15 12:36 | NUR ---
RD ASSESSMENT & RECOMMENDATIONS SEE CARE ACTIVITY FOR COMPLETE ASSESSMENT DAILY ESTIMATED NEEDS: Needs based on Critical care, underweight TF WELD FITTER 56.8 30-35 kcals/kg 8300-7641 total kcals 1.25-2 g protein/kg 71-113.6 g total protein 25-30 mL/kg 3730-5306 total fluid mLs NUTRITION DIAGNOSIS: * Increased kcal/prot intake needs R/T sepsis and underweight status as evidenced by pt adm w/ critically elev WBC (35.7*), febrile, @68% [place] Body Weight. * Swallowing difficulty R/T respiratory status as evidenced by pt vent dep via trach, PEG dep. ENTERAL NUTRITION RECOMMENDATIONS: Nepro @45mL/hr x 22hr to provide 990mL, 1782kcal, 80g pro, 720mL free water -When Hemodynamically stable, start Nepro @ 15mL/hr for 6 hrs. -Advance as tolerated 10mL q 4-6 hrs to goal. -TF @goal meets 100% est needs. -Flush per MD/ HOB >30 degrees. ADDITIONAL RECOMMENDATIONS: * Calibrated bedscale weight for accurate CBW + weekly wt monitoring * Per SNF: Ht of 6'1", Wt 125# (05/2019) * TF recs as above when medically stable * Monitor for cont'd need of renal formula (K 5.5) * Monitor lytes and hydration status. . .
[2019-06-15 13:01] LABS: % IRON SATURATION 35 % (15-50); IRON 56 ug/dL (50-175); TOTAL IRON BINDING CAPACITY 160 ug/dL (250-450)
--- NOTE | 2019-06-15 13:59 | NUR ---
NURSE NOTES: Pt turned and repositioned. Pt suctioned. Will continue to monitor.
--- NOTE | 2019-06-15 15:20 | NUR ---
NURSE NOTES: Vanc trough drawn. Levophed titrated down to 22mcg/hr and [place] 100 mcg/hr, BP 110s/50s. Will continue to monitor.
--- NOTE | 2019-06-15 16:15 | History and Physical Report ---
DATE OF ADMISSION: 06/14/2019 DATE AND TIME SEEN: 06/15/2019 at 10 a.m. CONSULTANTS: 1. Huma Keating M.D. 2. Cesario Daniels M.d. 3. Quirino Bernard M.D. CHIEF COMPLAINT: Septic shock. BRIEF HISTORY: This is a 68-year-old male from [facility], who presents with hypotension, came to [facility], diagnosed with respiratory failure and septic shock, admitted to ICU, pressors were given. Currently, on trach, vent and also lethargic in bed in ICU, nonverbal. REVIEW OF SYSTEMS: Unavailable. PAST MEDICAL HISTORY: Includes CVA, malnutrition, diabetes, hypertension, respiratory failure, hypothyroid, and Alzheimer's. PAST SURGICAL HISTORY: Trach and G-tube. ALLERGIES: No known drug allergies. MEDICATIONS: Include chlorhexidine, levothyroxine, pantoprazole, metronidazole, vancomycin, norepinephrine, heparin, ertapenem, . SOCIAL HISTORY: Unable to obtain secondary to the patient's condition. PHYSICAL EXAMINATION: GENERAL: Trach, vent, altered, lethargic in bed in ICU, nonverbal, on pressor. VITAL SIGNS: Temperature 99, pulse 81, respirations , and blood pressure 103/63. CARDIOVASCULAR: No murmur. LUNGS: Poor air exchange. ABDOMEN: Bowel sounds distant. EXTREMITIES: No cyanosis, clubbing, or edema. NEUROLOGIC: The patient is flaccid in bed, not following directions. LABORATORY AND DIAGNOSTIC DATA: Labs at this time show white count 35, H and H 8/25, and platelets normal. BMP - sodium 126, potassium 5.5, CO2 16, and BUN 47. Albumin 2.0. INR 1.1, PTT 45. Urinalysis show 3+ leukocyte esterase. ASSESSMENT: 1. Respiratory failure. 2. Urinary tract infection. 3. Sepsis, shock. 4. Hyponatremia. 5. Malnutrition. 6. CVA. 7. Anemia. 8. Diabetes. 9. Hypertension. 10. Hypothyroid. 11. Alzheimer's. PLAN: 1. Dietary evaluation. 2. Vent per Pulmonary. 3. Antibiotics per Infectious Disease. 4. Blood pressure control. 5. Resume home medications. 6. CBC and BMP in the morning. Gato Viveros D.O. DR: NETTA JOB#: [id number] CC:
--- NOTE | 2019-06-15 16:21 | Surgery Progress Note ---
Surgery Progress Note Subjective Procedure Performed right subclavian central venous catheter insertion Additional Comments in ICU on pressors hypotensive ill appearing labs noted exam stable. line okay Objective Last 24 Hour Vital Signs Date Time Temp Pulse Resp B/P (MAP) Pulse Ox O2 Delivery O2 Flow Rate FiO2 06/15/19 15:30 79 19 104/52 (69) 98 06/15/19 15:00 79 19 110/51 (70) 98 06/15/19 14:38 78 18 35 06/15/19 14:30 77 20 99/54 (69) 99 06/15/19 14:00 82 24 112/55 (74) 100 06/15/19 13:30 78 22 103/49 (67) 99 06/15/19 13:10 78 18 35 06/15/19 13:00 78 20 99/50 (66) 99 06/15/19 12:30 78 22 108/52 (70) 99 06/15/19 12:00 Mechanical Ventilator 06/15/19 12:00 35 06/15/19 12:00 77 06/15/19 12:00 98.5 75 21 88/55 (66) 99 06/15/19 11:57 77 101/82 06/15/19 11:57 101/82 06/15/19 11:30 77 21 101/82 (88) 99 06/15/19 11:00 77 21 92/55 (67) 99 06/15/19 10:31 80 21 35 06/15/19 10:30 81 20 98/52 (67) 100 06/15/19 10:00 82 22 93/59 (70) 99 06/15/19 09:30 81 23 103/63 (76) 99 06/15/19 09:00 89 22 116/53 (74) 99 06/15/19 08:41 87 25 35 06/15/19 08:30 90 24 105/49 (67) 99 06/15/19 08:00 95 06/15/19 08:00 Mechanical Ventilator 06/15/19 08:00 99.9 89 23 110/50 (70) 98 06/15/19 08:00 35 06/15/19 07:57 88 103/55 06/15/19 07:35 103/55 06/15/19 07:30 88 23 77/46 (56) 98 06/15/19 07:00 95 25 103/55 (71) 100 06/15/19 06:54 96 21 35 06/15/19 06:30 98 24 97/50 (66) 99 06/15/19 06:15 94 25 92/54 (67) 99 06/15/19 06:00 96 23 101/55 (70) 99 06/15/19 05:45 98 24 91/54 (66) 99 06/15/19 05:30 99 22 92/56 (68) 99 06/15/19 05:02 98 24 35 06/15/19 05:00 97 23 88/53 (65) 99 06/15/19 05:00 88/53 06/15/19 04:45 100 24 91/53 (66) 98 06/15/19 04:30 102 27 93/50 (64) 99 06/15/19 04:15 103 27 89/56 (67) 98 06/15/19 04:10 102 06/15/19 04:04 101 88/57 06/15/19 04:00 99.2 101 25 88/57 (67) 99 06/15/19 04:00 35 06/15/19 04:00 88/57 06/15/19 04:00 Mechanical Ventilator 06/15/19 03:45 100 25 83/63 (70) 99 06/15/19 03:30 99 26 95/59 (71) 99 06/15/19 03:15 101 25 88/56 (67) 99 06/15/19 03:00 100 26 88/55 (66) 99 06/15/19 03:00 88/55 06/15/19 02:59 100 26 35 06/15/19 02:45 95 27 79/47 (58) 98 06/15/19 02:38 83/45 06/15/19 02:30 98 29 83/45 (58) 98 06/15/19 02:15 102 30 73/43 (53) 98 06/15/19 02:10 102 30 81/48 (59) 98 06/15/19 02:00 102 28 77/48 (58) 97 06/15/19 02:00 77/48 06/15/19 01:45 106 26 81/45 (57) 97 06/15/19 01:41 97 21 100/59 (73) 96 06/15/19 01:30 101 27 79/46 (57) 97 06/15/19 01:15 101 28 91/53 (66) 97 06/15/19 01:00 93/55 06/15/19 01:00 104 27 93/55 (68) 96 06/15/19 00:49 97 28 35 06/15/19 00:45 97 29 87/51 (63) 97 06/15/19 00:45 87/51 06/15/19 00:30 84/54 06/15/19 00:30 96 29 84/54 (64) 97 06/15/19 00:15 97 30 89/53 (65) 97 06/15/19 00:00 97.6 99 29 88/51 (63) 97 06/15/19 00:00 35 06/15/19 00:00 Mechanical Ventilator 06/14/19 23:46 96 26 80/45 (57) 97 06/14/19 23:45 97 26 79/48 (58) 97 06/14/19 23:36 99 06/14/19 23:30 102 26 100/52 (68) 95 06/14/19 23:20 88/49 06/14/19 23:20 98 29 88/49 (62) 97 06/14/19 23:17 97 26 77/47 (57) 97 06/14/19 23:15 97 26 79/48 (58) 97 06/14/19 23:15 79/48 06/14/19 23:04 100 16 35 06/14/19 23:00 91/52 06/14/19 23:00 98 26 91/52 (65) 98 06/14/19 22:45 95 29 94/46 (62) 97 06/14/19 22:30 95 27 92/50 (64) 97 06/14/19 22:15 95 25 89/56 (67) 98 06/14/19 22:13 69/43 06/14/19 22:10 94 24 112/50 (70) 98 06/14/19 22:00 95.5 89 27 69/43 (52) 97 06/14/19 22:00 95 92/56 06/14/19 21:30 92 27 82/49 (60) 97 06/14/19 21:15 91 28 95/47 (63) 98 06/14/19 21:00 87 26 87/49 (62) 99 06/14/19 21:00 87/49 06/14/19 20:51 82 22 35 06/14/19 20:37 82 06/14/19 20:30 82 22 91/49 (63) 99 06/14/19 20:00 Mechanical Ventilator 06/14/19 20:00 100/46 06/14/19 20:00 92.6 78 20 100/46 (64) 99 06/14/19 20:00 35 06/14/19 19:30 61/39 06/14/19 19:30 70 17 61/39 (46) 99 06/14/19 19:00 119/56 06/14/19 19:00 95 16 119/56 (77) 99 06/14/19 18:55 94 16 35 06/14/19 18:45 122/56 06/14/19 18:30 122/56 06/14/19 18:15 122/53 06/14/19 18:00 125/51 06/14/19 17:30 129/52 06/14/19 17:15 144/68 06/14/19 17:04 Mechanical Ventilator 06/14/19 17:00 80/50 06/14/19 16:38 60 16 35 I&O Intake and Output 06/14/19 06/15/19 19:00 07:00 Intake Total 1740.50 ml 3298.5 ml Output Total 870 ml Balance 1740.50 ml 2428.5 ml Intake IV Total 1740.50 ml 3298.5 ml Output Urine Total 370 ml Gastric Drainage Total 500 ml # Voids 1 Dressing: dry Cardiovascular: RSR Respiratory: clear Abdomen: soft, non-tender, decreased bowel sounds Extremities: no cyanosis Laboratory Tests Test 06/15/19 06:05 06/15/19 08:28 06/15/19 11:42 06/15/19 15:00 White Blood Count 35.7 K/UL (4.8-10.8) #*H Red Blood Count 2.93 M/UL (4.70-6.10) L Hemoglobin 8.0 G/DL (14.2-18.0) L Hematocrit 25.0 % (42.0-52.0) L Mean Corpuscular Volume 85 FL (80-99) Mean Corpuscular Hemoglobin 27.3 PG (27.0-31.0) Mean Corpuscular Hemoglobin Concent 32.0 G/DL (32.0-36.0) Red Cell Distribution Width 16.0 % (11.6-14.8) H Platelet Count 193 K/UL (150-450) Mean Platelet Volume 8.9 FL (6.5-10.1) Neutrophils (%) (Auto) % (45.0-75.0) Lymphocytes (%) (Auto) % (20.0-45.0) Monocytes (%) (Auto) % (1.0-10.0) Eosinophils (%) (Auto) % (0.0-3.0) Basophils (%) (Auto) % (0.0-2.0) Differential Total Cells Counted 100 Neutrophils % (Manual) 67 % (45-75) Lymphocytes % (Manual) 3 % (20-45) L Monocytes % (Manual) 4 % (1-10) Eosinophils % (Manual) 0 % (0-3) Basophils % (Manual) 0 % (0-2) Metamyelocytes % 1 % (0-0) H Band Neutrophils 25 % (0-8) H Platelet Estimate Adequate Platelet Morphology Normal Anisocytosis 1+ Sodium Level 126 MMOL/L (136-145) L Potassium Level 5.5 MMOL/L (3.5-5.1) H Chloride Level 100 MMOL/L (98-107) Carbon Dioxide Level 16 MMOL/L (21-32) L Anion Gap 10 mmol/L (5-15) Blood Urea Nitrogen 47 mg/dL (7-18) H Creatinine 1.2 MG/DL (0.55-1.30) # Estimat Glomerular Filtration Rate 59.9 mL/min (>60) Glucose Level 102 MG/DL (74-106) Calcium Level 7.9 MG/DL (8.5-10.1) L Iron Level 56 ug/dL (50-175) Total Iron Binding Capacity 160 ug/dL (250-450) L Percent Iron Saturation 35 % (15-50) Unsaturated Iron Binding 104 ug/dL (112-346) L Ferritin 635 NG/ML (8-388) H Total Bilirubin 0.3 MG/DL (0.2-1.0) Direct Bilirubin 0.2 MG/DL (0.0-0.3) Aspartate Amino Transf (AST/SGOT) 56 U/L (15-37) H Alanine Aminotransferase (ALT/SGPT) 68 U/L (12-78) Alkaline Phosphatase 148 U/L (46-116) H Total Protein 5.9 G/DL (6.4-8.2) L Albumin 2.0 G/DL (3.4-5.0) L Globulin 3.9 g/dL Albumin/Globulin Ratio 0.5 (1.0-2.7) L Vitamin B12 Level > 2000 PG/ML (193-986) H Folate 18.5 NG/ML (8.6-58.9) Random Amikacin Level 24.9 ug/mL Arterial Blood pH 7.301 (7.350-7.450) Arterial Blood Partial Pressure CO2 31.3 mmHg (35.0-45.0) L Arterial Blood Partial Pressure O2 50.3 mmHg (75.0-100.0) L Arterial Blood HCO3 15.1 mmol/L (22.0-26.0) *L Arterial Blood Oxygen Saturation 83.7 % (95-100) *L Arterial Blood Base Excess -10.3 (-2-2) *L Ger Test Positive Urine Osmolality 337 mOsm/kg (429-449) L Urine Random Sodium 36 mmol/L (20-110) Vancomycin Level Trough 13.6 ug/mL (5.0-12.0) H Plan Problems: (1) Severe protein-calorie malnutrition Assessment & Plan: DAILY ESTIMATED NEEDS: Needs based on Critical care, underweight TF POINTER HELPER 56.8 30-35 kcals/kg 2677-7885 total kcals 1.25-2 g protein/kg 71-113.6 g total protein 25-30 mL/kg 3654-0157 total fluid mLs NUTRITION DIAGNOSIS: * Increased kcal/prot intake needs R/T sepsis and underweight status as evidenced by pt adm w/ critically elev WBC (35.7*), febrile, @68% [place] Body Weight. * Swallowing difficulty R/T respiratory status as evidenced by pt vent dep via trach, PEG dep. ENTERAL NUTRITION RECOMMENDATIONS: Nepro @45mL/hr x 22hr to provide 990mL, 1782kcal, 80g pro, 720mL free water -When Hemodynamically stable, start Nepro @ 15mL/hr for 6 hrs. -Advance as tolerated 10mL q 4-6 hrs to goal. -TF @goal meets 100% est needs. -Flush per MD/ HOB >30 degrees. ADDITIONAL RECOMMENDATIONS: * Calibrated bedscale weight for accurate CBW + weekly wt monitoring * Per SNF: Ht of 6'1", Wt 125# (05/2019) * TF recs as above when medically stable * Monitor for cont'd need of renal formula (K 5.5) * Monitor lytes and hydration status. (2) Feeding by G-tube (3) Respiratory failure, [id number] (4) Septic shock Assessment & Plan: hypotensive tachycardic labs as above line placed fluid resuscitation pressors will follow with recs thank you (5) Severe sepsis Quirino Bernard Jun 15, 2019 16:21
[2019-06-15] MEDS: Pantoprazole Inj IVP SCH (17:06)
[2019-06-15] MEDS: Norepinephrine Bitartrate 8 MG in D5W 500ml 492 ML IV SCH (17:49)
--- NOTE | 2019-06-15 18:21 | NUR ---
NURSE NOTES: Pt turned and repositioned. Pt had moderate size pasty tar stool. Levophed down to 18 mcg/hr and Carson was 80 mcg/hr. Will continue to monitor.
--- NOTE | 2019-06-15 19:29 | NUR ---
HAND-OFF: Report given to Zeb HARTLEY.
--- NOTE | 2019-06-15 20:00 | NUR ---
NURSE NOTES: Received SBAR from Shruthi RN. Patient is awake. Opens eyes spontaneously. Non-verbal. Patient is trached to ventilator with settings of AC 16, 600tv, 35% FiO2 and no peep. Patient has a right subclavian TLC. Levophed gtt being infusing, phenylephrine gtt infusing, and D5NS at 100ml/hr being infusing. Patient is contracted at upper and lower extremities. Patient noted to also have right leg IO access and L FA 22G TKO. Patient HR is SR on the monitor and BP is stable at this time with while with the pressors. Will continue to monitor.
--- NOTE | 2019-06-15 20:01 | NUR ---
NURSE NOTES: Repositioned patient and gave him oral care. Condom catheter remains in place. Patient making good urine output. Will continue to monitor.
[2019-06-15] MEDS: Ertapenem 1 GM in NS 55 ML IV SCH (20:35)
[2019-06-15] MEDS: Dyna-Hex 2% Top Sol 2oz TOPIC SCH (20:35)
--- NOTE | 2019-06-15 22:00 | NUR ---
NURSE NOTES: Repositioned patient. Vasopressors ongoing. Patient is afebrile. Deep suctioned patient. No distress at this time. Will continue to monitor.
--- NOTE | 2019-06-15 23:00 | NUR ---
NURSE NOTES: DC'd IO access. Covered with gauze.
[2019-06-16] VITALS (57 sets, daily range): BP systolic 66–123; BP diastolic 29–77
--- NOTE | 2019-06-16 | NUR ---
NURSE NOTES: Repositioned patient and provided oral suctioning. Condom catheter remains in place and pouring out yellow urine. Oral care was also given. Discontinued bilateral soft wrist restraints. Pulses are noted and skin is intact. Central line dressing remains intact and patent. Held Phenylephrine pressor for now but Levophed remains ongoing.
[2019-06-16] MEDS: Vancomycin oral 125mg/2.5ml GT SCH ×3 (00:16→17:08)
--- NOTE | 2019-06-16 02:00 | NUR ---
NURSE NOTES: Repositioned patient and provided deep suctioning. Patient noted to have constant of secretions around trach site. Trach site cleaned again. Will continue to monitor.
[2019-06-16] MEDS: Norepinephrine Bitartrate 8 MG in D5W 500ml 492 ML IV SCH ×2 (03:52→17:01)
[2019-06-16] MEDS: Vancomycin 750mg/NS 275ml IVPB SCH ×4 (03:52→17:09)
--- NOTE | 2019-06-16 04:00 | NUR ---
NURSE NOTES: Temperature taken rectally and noted to be 94.7F. Warming Mckenney applied. Patient given oral care and suctioned around trach site and deep suctioned. Pressors ongoing. Central line dressing changed using aseptic technique. Repositioned patient.
[2019-06-16 05:11] LABS: HEMATOCRIT 23.3 % (42.0-52.0); HEMOGLOBIN 7.5 G/DL (14.2-18.0); MEAN CORPUSCULAR VOLUME 86 FL (80-99); PLATELET COUNT 129 K/UL (150-450); RED BLOOD COUNT 2.71 M/UL (4.70-6.10); RED CELL DISTRIBUTION WIDTH 15.6 % (11.6-14.8)
[2019-06-16 05:43] LABS: ALANINE AMINOTRANSFERASE 69 U/L (12-78); ALBUMIN 1.9 G/DL (3.4-5.0); ALBUMIN/GLOBULIN RATIO 0.5 (1.0-2.7); ALKALINE PHOSPHATASE 168 U/L (46-116); ANION GAP 9 mmol/L (5-15); ASPARTATE AMINO TRANSFERASE 62 U/L (15-37); BILIRUBIN,TOTAL 0.2 MG/DL (0.2-1.0); BLOOD UREA NITROGEN 36 mg/dL (7-18); CALCIUM 8.1 MG/DL (8.5-10.1); CARBON DIOXIDE 16 MMOL/L (21-32); CHLORIDE 107 MMOL/L (98-107); CREATININE 1.4 MG/DL (0.55-1.30); PHOSPHORUS 2.9 MG/DL (2.5-4.9); POTASSIUM 4.5 MMOL/L (3.5-5.1); SODIUM 132 MMOL/L (136-145)
[2019-06-16 05:47] LABS: WHITE BLOOD COUNT 26.4 K/UL (4.8-10.8)
--- NOTE | 2019-06-16 06:00 | NUR ---
NURSE NOTES: Dr. hair at bedside rounding. Updated patients progress. No new orders at this time.
--- NOTE | 2019-06-16 06:30 | NUR ---
NURSE NOTES: Patients temperature is 95.6F rectally, warming blanket remains on. Suctioned patient. Pressors ongoing.
--- NOTE | 2019-06-16 07:00 | NUR ---
RESPIRATORY NOTES: Received Patient on Mechanical Ventilator settings RR 16, VT 600, FIO2 35%, PEEP +0. 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 Patient is obtundent, showing no signs of distress. Bilateral rhonchi is heard throughout both lungs, in all lung wiseman. Suctioned a moderate amount of thick green secretions thorough trache. Alarms are on and audible. Vent plugged into red outlet. Will continue to closely monitor throughout the day.
--- NOTE | 2019-06-16 07:23 | NUR ---
HAND-OFF: Report given to Rosalie HARTLEY.
--- NOTE | 2019-06-16 07:39 | NUR ---
NURSE NOTES: Report received from ODILIA Carrington
--- NOTE | 2019-06-16 08:11 | NUR ---
NURSE NOTES: PT RECEIVED ASLEEP. NO RESPONSE TO VERBAL STIMULI.RESPOND TO TACTILE STIMULI.HYPOTHERMIC AT THIS TIME 94.6, EVANGELINA HUGER IN PLACE.ON TRACH/VENT PORTEX 8 AC 16 VT 600 FIO2 35%.NPO WITH GT IN PLACE.CHECK PLACEMENT INTACT WITH [employer] RESIDUAL LIGHT GREEN IN COLOR.PT ALSO SUCTIONED WITH LARGE AMOUNT OF SECRETION.MOUTH CARE DONE.CONDOM CATH IN PLACE WITH GOOD URINE OUTPUT YELLOW IN COLOR.RIGHT SUBCLAVIAN TLC RUNNING LEVOPHED AT 14MCG. WILL TITRATE TOLERATED WITH CLOSE MONITORING. NOTED WITH RIGHT METARSAL HEAD , LEFT MALLEOLUS AND RIGHT LATERAL MALLEOLUS REDNESS.AFFECTED AREA BLANCHABLE. FOAM APPLIED FOR PROTECTION. ALSO NOTED WITH GENERALIZE SCRATCH AND SKIN BREAKDOWN.ALSO NOTED WITH GT SITE REDNESS, BLANCHABLE.DRESSING CHANGED AND KEPT CLEAN AND DRY. ABDOMEN ROUND AND DISTENDED WITH HYPOACTIVE SOUNDS. HGB 7.5, WILL FOLLOW UP WITH DR HICKS. PT KEPT CLEAN DRY AND COMFORTABLE WITH MOUTH CARE DONE.HOB ELEVATED AT 35 DEGREE TO PREVENT ASPIRATION.WILL CONTINUE TO MONITOR
--- NOTE | 2019-06-16 08:44 | NUR ---
RADIOLOGY DEPT., CHEST X-RAY DONE.-P.DYE
[2019-06-16] MEDS: Pantoprazole Inj IVP SCH ×2 (09:13→17:09)
[2019-06-16] MEDS: Heparin 5000 units/ml inj SUBQ SCH ×2 (09:18→20:58)
[2019-06-16] MEDS: D5NS 1,000 ML IV SCH ×2 (09:21→17:21)
--- NOTE | 2019-06-16 09:52 | General Progress Note ---
Assessment/Plan Problem List: (1) Diabetes ICD Codes: E11.9 - Type 2 diabetes mellitus without complications SNOMED: 32636692 (2) HTN (hypertension) ICD Codes: I10 - Essential (primary) hypertension SNOMED: 52822985 (3) CVA (cerebral vascular accident) ICD Codes: I63.9 - Cerebral infarction, unspecified SNOMED: 739405698 (4) Severe protein-calorie malnutrition ICD Codes: E43 - Unspecified severe protein-calorie malnutrition SNOMED: 567264408 (5) Feeding by G-tube ICD Codes: Z93.1 - Gastrostomy status SNOMED: 181835619, 889949894 (6) Respiratory failure, [id number] ICD Codes: J96.20 - Respiratory failure, [id number]-[id number] SNOMED: 15232496 (7) Anemia ICD Codes: D64.9 - Anemia, unspecified SNOMED: 976781359 (8) Chronic respiratory failure ICD Codes: J96.10 - Chronic respiratory failure, unspecified whether with hypoxia or hypercapnia SNOMED: 94249904 (9) Septic shock ICD Codes: A41.9 - Sepsis, unspecified organism; R65.21 - Severe sepsis with septic shock SNOMED: 06908901 (10) Alzheimer's dementia ICD Codes: G30.9 - Alzheimer's disease, unspecified SNOMED: 72207194 (11) Severe sepsis ICD Codes: A41.9 - Sepsis, unspecified organism; R65.20 - Severe sepsis without septic shock SNOMED: 23812985 (12) Hypothyroidism ICD Codes: E03.9 - Hypothyroidism, unspecified SNOMED: 13103941 Status: unchanged Assessment/Plan: vent abx wean pressor cbc bmp am ltach eval Subjective Constitutional: Reports: weakness Allergies: Coded Allergies: NO KNOWN DRUG ALLERGIES (Verified Allergy, Unknown, 09/11/16) All Systems: reviewed and negative except above Subjective trach vent altered Objective Last 24 Hour Vital Signs Date Time Temp Pulse Resp B/P (MAP) Pulse Ox O2 Delivery O2 Flow Rate FiO2 06/16/19 08:56 91 19 35 06/16/19 07:00 82 18 35 06/16/19 07:00 77 19 92/51 (65) 100 06/16/19 06:30 82 20 99/53 (68) 100 06/16/19 06:00 83 19 103/63 (76) 100 06/16/19 05:45 81 18 88/72 (77) 100 06/16/19 05:30 81 16 97/57 (70) 100 06/16/19 05:26 81 18 93/59 (70) 100 06/16/19 05:02 80 19 35 06/16/19 05:00 79 17 93/62 (72) 100 06/16/19 04:30 81 23 99/57 (71) 100 06/16/19 04:00 Mechanical Ventilator 06/16/19 04:00 35 06/16/19 04:00 94.7 77 20 123/57 (79) 99 06/16/19 04:00 80 06/16/19 03:52 94/51 06/16/19 03:30 79 17 102/62 (75) 100 06/16/19 03:03 75 17 35 06/16/19 03:00 75 16 94/62 (73) 100 06/16/19 02:30 71 19 95/44 (61) 100 06/16/19 02:00 80 23 67/55 (59) 99 06/16/19 01:30 77 17 105/59 (74) 100 06/16/19 01:00 72 18 67/40 (49) 99 06/16/19 00:45 76 18 35 06/16/19 00:30 77 23 94/51 (65) 100 06/16/19 00:16 94/51 06/16/19 00:00 75 06/16/19 00:00 35 06/16/19 00:00 Mechanical Ventilator 06/16/19 00:00 96.0 77 18 100/47 (64) 100 06/15/19 23:30 76 16 87/46 (60) 100 06/15/19 23:16 81 19 35 06/15/19 23:15 75 17 94/56 (69) 100 06/15/19 23:00 76 16 82/55 (64) 100 06/15/19 23:00 82/55 06/15/19 22:30 76 17 91/41 (58) 100 06/15/19 22:00 92/48 06/15/19 22:00 76 18 92/48 (63) 99 06/15/19 21:30 78 17 97/56 (70) 100 06/15/19 21:10 80 18 35 06/15/19 21:00 89/55 06/15/19 21:00 78 18 95/49 (64) 100 06/15/19 20:36 78 105/59 06/15/19 20:30 79 18 96/51 (66) 99 06/15/19 20:00 35 06/15/19 20:00 105/58 06/15/19 20:00 97.6 79 20 105/58 (74) 99 06/15/19 20:00 76 06/15/19 20:00 Mechanical Ventilator 06/15/19 19:30 80 18 108/53 (71) 99 06/15/19 19:01 78 19 35 06/15/19 19:00 81 19 105/59 (74) 99 06/15/19 19:00 111/55 06/15/19 18:30 80 20 110/53 (72) 99 06/15/19 18:00 80 19 113/54 (73) 99 06/15/19 17:49 114/66 06/15/19 17:30 76 21 114/66 (82) 100 06/15/19 17:26 77 17 35 06/15/19 17:00 76 19 79/45 (56) 99 06/15/19 16:30 78 20 97/49 (65) 100 06/15/19 16:00 98.7 78 22 113/58 (76) 100 06/15/19 16:00 35 06/15/19 16:00 81 06/15/19 16:00 Mechanical Ventilator 06/15/19 15:30 79 19 104/52 (69) 98 06/15/19 15:00 79 19 110/51 (70) 98 06/15/19 14:38 78 18 35 06/15/19 14:30 77 20 99/54 (69) 99 06/15/19 14:00 82 24 112/55 (74) 100 06/15/19 13:30 78 22 103/49 (67) 99 06/15/19 13:10 78 18 35 06/15/19 13:00 78 20 99/50 (66) 99 06/15/19 12:30 78 22 108/52 (70) 99 06/15/19 12:00 Mechanical Ventilator 06/15/19 12:00 35 06/15/19 12:00 77 10/6/19 12:00 98.5 75 21 88/55 (66) 99 06/15/19 11:57 77 101/82 06/15/19 11:57 101/82 06/15/19 11:30 77 21 101/82 (88) 99 06/15/19 11:00 77 21 92/55 (67) 99 06/15/19 10:31 80 21 35 06/15/19 10:30 81 20 98/52 (67) 100 06/15/19 10:00 82 22 93/59 (70) 99 Intake and Output 06/15/19 06/16/19 19:00 07:00 Intake Total 2832.0 ml 2385.5 ml Output Total 900 ml 1000 ml Balance 1932.0 ml 1385.5 ml Intake IV Total 2832.0 ml 2385.5 ml Output Urine Total 900 ml 1000 ml # Bowel Movements 2 Laboratory Tests 06/15/19 11:42: Urine Osmolality 337L, Urine Random Sodium 36 06/15/19 15:00: Vancomycin Level Trough 13.6H 06/16/19 04:00: White Blood Count 26.4*H, Red Blood Count 2.71L, Hemoglobin 7.5L, Hematocrit 23.3L, Mean Corpuscular Volume 86, Mean Corpuscular Hemoglobin 27.8, Mean Corpuscular Hemoglobin Concent 32.3, Red Cell Distribution Width 15.6H, Platelet Count 129L, Mean Platelet Volume 8.4, Neutrophils (%) (Auto) , Lymphocytes (%) (Auto) , Monocytes (%) (Auto) , Eosinophils (%) (Auto) , Basophils (%) (Auto) , Differential Total Cells Counted 100, Neutrophils % ( Manual) 88H, Lymphocytes % (Manual) 7L, Monocytes % (Manual) 5, Eosinophils % ( Manual) 0, Basophils % (Manual) 0, Band Neutrophils 0, Platelet Estimate DecreasedL, Platelet Morphology Normal, Hypochromasia 1+, Anisocytosis 1+, Dodson Cells 1+, Sodium Level 132L, Potassium Level 4.5, Chloride Level 107, Carbon Dioxide Level 16L, Anion Gap 9, Blood Urea Nitrogen 36H, Creatinine 1.4H, Estimat Glomerular Filtration Rate 50.1, Glucose Level 146H, Hemoglobin A1c 5.5 , Osmolality 287L, Uric Acid 4.4, Calcium Level 8.1L, Phosphorus Level 2.9, Magnesium Level 2.1, Total Bilirubin 0.2, Aspartate Amino Transf (AST/SGOT) 62H , Alanine Aminotransferase (ALT/SGPT) 69, Alkaline Phosphatase 168H, C-Reactive Protein, Quantitative 37.3H, Pro-B-Type Natriuretic Peptide 7417H, Total Protein 5.7L, Albumin 1.9L, Globulin 3.8, Albumin/Globulin Ratio 0.5L, Random Amikacin Level 10.7 Height (Feet): 5 Height (Inches): 8.00 Weight (Pounds): 150 General Appearance: lethargic EENT: normal ENT inspection Neck: normal alignment Cardiovascular: normal peripheral pulses, normal rate, regular rhythm Respiratory/Chest: chest wall non-tender, lungs clear, normal breath sounds Abdomen: normal bowel sounds, non tender, soft Extremities: normal inspection Edema: no edema noted Arm (L), no edema noted Arm (R), no edema noted Leg (L), no edema noted Leg (R), no edema noted Pedal (L), no edema noted Pedal (R), no edema noted Generalized Neurologic: motor weakness Skin: normal pigmentation, warm/dry Gato Viveros DO Jun 16, 2019 09:52
--- NOTE | 2019-06-16 09:55 | NUR ---
NURSE NOTES: SEEN BY DR HICKS,WILL FOLLOW UP WITH NEW ORDERS
--- NOTE | 2019-06-16 09:58 | Nephrology Progress Note ---
Assessment/Plan Problem List: (1) Septic shock (2) Hypothyroidism (3) Upper GI bleed (4) Respiratory failure, [id number] (5) Anemia Assessment Sepsis Shock on pressors GI Bleed Low Na and high K UTI HypoThyroidism Tracheostomy dependence Respiratory failure, [id number]-[id number] Alzheimer's Feeding by G-tube Plan fluid challenge IV fluids transfuse one unit today Monitor lytes and renal parametrs urine studies per orders Subjective ROS Limited/Unobtainable: Yes Objective Objective Last 24 Hour Vital Signs Date Time Temp Pulse Resp B/P (MAP) Pulse Ox O2 Delivery O2 Flow Rate FiO2 06/16/19 08:56 91 19 35 06/16/19 07:00 82 18 35 06/16/19 07:00 77 19 92/51 (65) 100 06/16/19 06:30 82 20 99/53 (68) 100 06/16/19 06:00 83 19 103/63 (76) 100 06/16/19 05:45 81 18 88/72 (77) 100 06/16/19 05:30 81 16 97/57 (70) 100 06/16/19 05:26 81 18 93/59 (70) 100 06/16/19 05:02 80 19 35 06/16/19 05:00 79 17 93/62 (72) 100 06/16/19 04:30 81 23 99/57 (71) 100 06/16/19 04:00 Mechanical Ventilator 06/16/19 04:00 35 06/16/19 04:00 94.7 77 20 123/57 (79) 99 06/16/19 04:00 80 06/16/19 03:52 94/51 06/16/19 03:30 79 17 102/62 (75) 100 06/16/19 03:03 75 17 35 06/16/19 03:00 75 16 94/62 (73) 100 06/16/19 02:30 71 19 95/44 (61) 100 06/16/19 02:00 80 23 67/55 (59) 99 06/16/19 01:30 77 17 105/59 (74) 100 06/16/19 01:00 72 18 67/40 (49) 99 06/16/19 00:45 76 18 35 06/16/19 00:30 77 23 94/51 (65) 100 06/16/19 00:16 94/51 06/16/19 00:00 75 06/16/19 00:00 35 06/16/19 00:00 Mechanical Ventilator 06/16/19 00:00 96.0 77 18 100/47 (64) 100 06/15/19 23:30 76 16 87/46 (60) 100 06/15/19 23:16 81 19 35 06/15/19 23:15 75 17 94/56 (69) 100 06/15/19 23:00 76 16 82/55 (64) 100 06/15/19 23:00 82/55 06/15/19 22:30 76 17 91/41 (58) 100 06/15/19 22:00 92/48 06/15/19 22:00 76 18 92/48 (63) 99 06/15/19 21:30 78 17 97/56 (70) 100 06/15/19 21:10 80 18 35 06/15/19 21:00 89/55 06/15/19 21:00 78 18 95/49 (64) 100 06/15/19 20:36 78 105/59 06/15/19 20:30 79 18 96/51 (66) 99 06/15/19 20:00 35 06/15/19 20:00 105/58 06/15/19 20:00 97.6 79 20 105/58 (74) 99 06/15/19 20:00 76 06/15/19 20:00 Mechanical Ventilator 06/15/19 19:30 80 18 108/53 (71) 99 06/15/19 19:01 78 19 35 06/15/19 19:00 81 19 105/59 (74) 99 06/15/19 19:00 111/55 06/15/19 18:30 80 20 110/53 (72) 99 06/15/19 18:00 80 19 113/54 (73) 99 06/15/19 17:49 114/66 06/15/19 17:30 76 21 114/66 (82) 100 06/15/19 17:26 77 17 35 06/15/19 17:00 76 19 79/45 (56) 99 06/15/19 16:30 78 20 97/49 (65) 100 06/15/19 16:00 98.7 78 22 113/58 (76) 100 06/15/19 16:00 35 06/15/19 16:00 81 06/15/19 16:00 Mechanical Ventilator 06/15/19 15:30 79 19 104/52 (69) 98 06/15/19 15:00 79 19 110/51 (70) 98 06/15/19 14:38 78 18 35 06/15/19 14:30 77 20 99/54 (69) 99 06/15/19 14:00 82 24 112/55 (74) 100 06/15/19 13:30 78 22 103/49 (67) 99 06/15/19 13:10 78 18 35 06/15/19 13:00 78 20 99/50 (66) 99 06/15/19 12:30 78 22 108/52 (70) 99 06/15/19 12:00 Mechanical Ventilator 06/15/19 12:00 35 06/15/19 12:00 77 06/15/19 12:00 98.5 75 21 88/55 (66) 99 06/15/19 11:57 77 101/82 06/15/19 11:57 101/82 06/15/19 11:30 77 21 101/82 (88) 99 06/15/19 11:00 77 21 92/55 (67) 99 06/15/19 10:31 80 21 35 06/15/19 10:30 81 20 98/52 (67) 100 06/15/19 10:00 82 22 93/59 (70) 99 Intake and Output 06/15/19 06/16/19 19:00 07:00 Intake Total 2832.0 ml 2385.5 ml Output Total 900 ml 1000 ml Balance 1932.0 ml 1385.5 ml Intake IV Total 2832.0 ml 2385.5 ml Output Urine Total 900 ml 1000 ml # Bowel Movements 2 Laboratory Tests 06/15/19 11:42: Urine Osmolality 337L, Urine Random Sodium 36 06/15/19 15:00: Vancomycin Level Trough 13.6H 06/16/19 04:00: White Blood Count 26.4*H, Red Blood Count 2.71L, Hemoglobin 7.5L, Hematocrit 23.3L, Mean Corpuscular Volume 86, Mean Corpuscular Hemoglobin 27.8, Mean Corpuscular Hemoglobin Concent 32.3, Red Cell Distribution Width 15.6H, Platelet Count 129L, Mean Platelet Volume 8.4, Neutrophils (%) (Auto) , Lymphocytes (%) (Auto) , Monocytes (%) (Auto) , Eosinophils (%) (Auto) , Basophils (%) (Auto) , Differential Total Cells Counted 100, Neutrophils % ( Manual) 88H, Lymphocytes % (Manual) 7L, Monocytes % (Manual) 5, Eosinophils % ( Manual) 0, Basophils % (Manual) 0, Band Neutrophils 0, Platelet Estimate DecreasedL, Platelet Morphology Normal, Hypochromasia 1+, Anisocytosis 1+, [place] Cells 1+, Sodium Level 132L, Potassium Level 4.5, Chloride Level 107, Carbon Dioxide Level 16L, Anion Gap 9, Blood Urea Nitrogen 36H, Creatinine 1.4H, Estimat Glomerular Filtration Rate 50.1, Glucose Level 146H, Hemoglobin A1c 5.5 , Osmolality 287L, Uric Acid 4.4, Calcium Level 8.1L, Phosphorus Level 2.9, Magnesium Level 2.1, Total Bilirubin 0.2, Aspartate Amino Transf (AST/SGOT) 62H , Alanine Aminotransferase (ALT/SGPT) 69, Alkaline Phosphatase 168H, C-Reactive Protein, Quantitative 37.3H, Pro-B-Type Natriuretic Peptide 7417H, Total Protein 5.7L, Albumin 1.9L, Globulin 3.8, Albumin/Globulin Ratio 0.5L, Random Amikacin Level 10.7 Height (Feet): 5 Height (Inches): 8.00 Weight (Pounds): 150 General Appearance: no apparent distress EENT: other - trach- vent Cardiovascular: normal rate Respiratory/Chest: decreased breath sounds Abdomen: distended Sav Salvador MD Jun 16, 2019 09:58
--- NOTE | 2019-06-16 10:06 | NUR ---
NURSE NOTES: PT OBTUNDED , REMAINS HYPOTHERMIC, EVANGELINA PHILLIPS IN PLACE. TURNED AND REPOSITIONED FOR SKIN MANAGEMENT.HOB ELEVATED TO PREVENT ASPIRATION.WILL CONTINUE TO MONITOR Addendum: 06/16/19 at 1950 by Rosalie Langston RN SEEN BY DR KAISER WITH ORDER TO TRANSFUSE ONE UNIT PRBC. ORDER NOTED AND CARRIED OUT
--- NOTE | 2019-06-16 10:57 | Surgery Progress Note ---
Surgery Progress Note Subjective Procedure Performed right subclavian central venous catheter insertion Additional Comments Patient seen and examined at bedside. Still on pressors but weaning down. Leukocytosis slowly trending down. Renal insufficiency. Exam unchanged. On ventilatory support. Objective Last 24 Hour Vital Signs Date Time Temp Pulse Resp B/P (MAP) Pulse Ox O2 Delivery O2 Flow Rate FiO2 06/16/19 10:51 95 19 35 06/16/19 10:30 94 17 102/48 (66) 100 06/16/19 10:15 93 18 99/66 (77) 99 06/16/19 10:00 91 18 96/55 (69) 100 06/16/19 09:45 93 18 102/44 (63) 100 06/16/19 09:30 93 17 102/55 (71) 99 06/16/19 09:15 91 18 114/56 (75) 100 06/16/19 09:00 88 17 106/55 (72) 100 06/16/19 08:56 91 19 35 06/16/19 08:45 89 17 101/51 (68) 100 06/16/19 08:30 87 18 104/56 (72) 100 06/16/19 08:15 86 21 93/62 (72) 100 06/16/19 08:00 Mechanical Ventilator 06/16/19 08:00 86 18 94/54 (67) 100 06/16/19 08:00 93 06/16/19 08:00 35 06/16/19 07:45 86 18 115/67 (83) 100 06/16/19 07:30 98.6 84 19 98/52 (67) 100 06/16/19 07:00 82 18 35 06/16/19 07:00 77 19 92/51 (65) 100 06/16/19 06:30 82 20 99/53 (68) 100 06/16/19 06:00 83 19 103/63 (76) 100 06/16/19 05:45 81 18 88/72 (77) 100 06/16/19 05:30 81 16 97/57 (70) 100 06/16/19 05:26 81 18 93/59 (70) 100 06/16/19 05:02 80 19 35 06/16/19 05:00 79 17 93/62 (72) 100 06/16/19 04:30 81 23 99/57 (71) 100 06/16/19 04:00 Mechanical Ventilator 06/16/19 04:00 35 06/16/19 04:00 94.7 77 20 123/57 (79) 99 06/16/19 04:00 80 06/16/19 03:52 94/51 06/16/19 03:30 79 17 102/62 (75) 100 06/16/19 03:03 75 17 35 06/16/19 03:00 75 16 94/62 (73) 100 06/16/19 02:30 71 19 95/44 (61) 100 06/16/19 02:00 80 23 67/55 (59) 99 06/16/19 01:30 77 17 105/59 (74) 100 06/16/19 01:00 72 18 67/40 (49) 99 06/16/19 00:45 76 18 35 06/16/19 00:30 77 23 94/51 (65) 100 06/16/19 00:16 94/51 06/16/19 00:00 75 06/16/19 00:00 35 06/16/19 00:00 Mechanical Ventilator 06/16/19 00:00 96.0 77 18 100/47 (64) 100 06/15/19 23:30 76 16 87/46 (60) 100 06/15/19 23:16 81 19 35 06/15/19 23:15 75 17 94/56 (69) 100 06/15/19 23:00 76 16 82/55 (64) 100 06/15/19 23:00 82/55 06/15/19 22:30 76 17 91/41 (58) 100 06/15/19 22:00 92/48 06/15/19 22:00 76 18 92/48 (63) 99 06/15/19 21:30 78 17 97/56 (70) 100 06/15/19 21:10 80 18 35 06/15/19 21:00 89/55 06/15/19 21:00 78 18 95/49 (64) 100 06/15/19 20:36 78 105/59 06/15/19 20:30 79 18 96/51 (66) 99 06/15/19 20:00 35 06/15/19 20:00 105/58 06/15/19 20:00 97.6 79 20 105/58 (74) 99 10/6/19 20:00 76 06/15/19 20:00 Mechanical Ventilator 06/15/19 19:30 80 18 108/53 (71) 99 06/15/19 19:01 78 19 35 06/15/19 19:00 81 19 105/59 (74) 99 06/15/19 19:00 111/55 06/15/19 18:30 80 20 110/53 (72) 99 06/15/19 18:00 80 19 113/54 (73) 99 06/15/19 17:49 114/66 06/15/19 17:30 76 21 114/66 (82) 100 06/15/19 17:26 77 17 35 06/15/19 17:00 76 19 79/45 (56) 99 06/15/19 16:30 78 20 97/49 (65) 100 06/15/19 16:00 98.7 78 22 113/58 (76) 100 06/15/19 16:00 35 06/15/19 16:00 81 06/15/19 16:00 Mechanical Ventilator 06/15/19 15:30 79 19 104/52 (69) 98 06/15/19 15:00 79 19 110/51 (70) 98 06/15/19 14:38 78 18 35 06/15/19 14:30 77 20 99/54 (69) 99 06/15/19 14:00 82 24 112/55 (74) 100 06/15/19 13:30 78 22 103/49 (67) 99 06/15/19 13:10 78 18 35 06/15/19 13:00 78 20 99/50 (66) 99 06/15/19 12:30 78 22 108/52 (70) 99 06/15/19 12:00 Mechanical Ventilator 06/15/19 12:00 35 06/15/19 12:00 77 06/15/19 12:00 98.5 75 21 88/55 (66) 99 06/15/19 11:57 77 101/82 06/15/19 11:57 101/82 06/15/19 11:30 77 21 101/82 (88) 99 06/15/19 11:00 77 21 92/55 (67) 99 I&O Intake and Output 06/15/19 06/16/19 19:00 07:00 Intake Total 2832.0 ml 2385.5 ml Output Total 900 ml 1000 ml Balance 1932.0 ml 1385.5 ml Intake IV Total 2832.0 ml 2385.5 ml Output Urine Total 900 ml 1000 ml # Bowel Movements 2 Dressing: dry Wound: other Drains: other Cardiovascular: RSR Respiratory: decreased breath sounds Abdomen: soft, distended, non-tender, decreased bowel sounds Extremities: edema, no cyanosis Laboratory Tests Test 06/15/19 11:42 06/15/19 15:00 06/16/19 04:00 Urine Osmolality 337 mOsm/kg (429-449) L Urine Random Sodium 36 mmol/L (20-110) Vancomycin Level Trough 13.6 ug/mL (5.0-12.0) H White Blood Count 26.4 K/UL (4.8-10.8) *H Red Blood Count 2.71 M/UL (4.70-6.10) L Hemoglobin 7.5 G/DL (14.2-18.0) L Hematocrit 23.3 % (42.0-52.0) L Mean Corpuscular Volume 86 FL (80-99) Mean Corpuscular Hemoglobin 27.8 PG (27.0-31.0) Mean Corpuscular Hemoglobin Concent 32.3 G/DL (32.0-36.0) Red Cell Distribution Width 15.6 % (11.6-14.8) H Platelet Count 129 K/UL (150-450) L Mean Platelet Volume 8.4 FL (6.5-10.1) Neutrophils (%) (Auto) % (45.0-75.0) Lymphocytes (%) (Auto) % (20.0-45.0) Monocytes (%) (Auto) % (1.0-10.0) Eosinophils (%) (Auto) % (0.0-3.0) Basophils (%) (Auto) % (0.0-2.0) Differential Total Cells Counted 100 Neutrophils % (Manual) 88 % (45-75) H Lymphocytes % (Manual) 7 % (20-45) L Monocytes % (Manual) 5 % (1-10) Eosinophils % (Manual) 0 % (0-3) Basophils % (Manual) 0 % (0-2) Band Neutrophils 0 % (0-8) Platelet Estimate Decreased L Platelet Morphology Normal Hypochromasia 1+ Anisocytosis 1+ [place] Cells 1+ Sodium Level 132 MMOL/L (136-145) L Potassium Level 4.5 MMOL/L (3.5-5.1) Chloride Level 107 MMOL/L (98-107) Carbon Dioxide Level 16 MMOL/L (21-32) L Anion Gap 9 mmol/L (5-15) Blood Urea Nitrogen 36 mg/dL (7-18) H Creatinine 1.4 MG/DL (0.55-1.30) H Estimat Glomerular Filtration Rate 50.1 mL/min (>60) Glucose Level 146 MG/DL (74-106) H Hemoglobin A1c 5.5 % (4.3-6.0) Osmolality 287 mOsm/kg (297-317) L Uric Acid 4.4 MG/DL (2.6-7.2) Calcium Level 8.1 MG/DL (8.5-10.1) L Phosphorus Level 2.9 MG/DL (2.5-4.9) Magnesium Level 2.1 MG/DL (1.8-2.4) Total Bilirubin 0.2 MG/DL (0.2-1.0) Aspartate Amino Transf (AST/SGOT) 62 U/L (15-37) H Alanine Aminotransferase (ALT/SGPT) 69 U/L (12-78) Alkaline Phosphatase 168 U/L (46-116) H C-Reactive Protein, Quantitative 37.3 mg/dL (0.00-0.90) H Pro-B-Type Natriuretic Peptide 7417 pg/mL (0-125) H Total Protein 5.7 G/DL (6.4-8.2) L Albumin 1.9 G/DL (3.4-5.0) L Globulin 3.8 g/dL Albumin/Globulin Ratio 0.5 (1.0-2.7) L Random Amikacin Level 10.7 ug/mL Plan Problems: (1) Severe protein-calorie malnutrition Assessment & Plan: DAILY ESTIMATED NEEDS: Needs based on Critical care, underweight 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 * Swallowing difficulty R/T respiratory status as evidenced by pt vent dep via trach, PEG dep. ENTERAL NUTRITION RECOMMENDATIONS: Nepro @45mL/hr x 22hr to provide 990mL, 1782kcal, 80g pro, 720mL free water -When Hemodynamically stable, start Nepro @ 15mL/hr for 6 hrs. -Advance as tolerated 10mL q 4-6 hrs to goal. -TF @goal meets 100% est needs. -Flush per MD/ HOB >30 degrees. ADDITIONAL RECOMMENDATIONS: * Calibrated bedscale weight for accurate CBW + weekly wt monitoring * Per SNF: Ht of 6'1", Wt 125# (05/2019) * TF recs as above when medically stable * Monitor for cont'd need of renal formula (K 5.5) * Monitor lytes and hydration status. (2) Feeding by G-tube (3) Respiratory failure, [id number] (4) Septic shock Assessment & Plan: hypotensive tachycardic labs as above line placed fluid resuscitation pressors will follow with recs thank you (5) Severe sepsis Quirino Bernard Jun 16, 2019 10:57
--- NOTE | 2019-06-16 11:11 | NUR ---
*-* NO INSURANCE INFORMATION IN THE BAR UNABLE TO SEND CLINICALS AND REVIEWS *-*
--- NOTE | 2019-06-16 11:11 | Infectious Diseases Prog Note ---
Assessment/Plan Assessment/Plan Mr. Huffman is a 68 yo male with PMHx of of chronic resp failure trach/vent dependant, diffuse ulcerative esophagitis, peptic esophageal stricture, asthma, GERD, Dm2, CVA/TIA w/ hemiplegia, functional quadriplegia, CAD, CHF, ESBL UTI , GIB s/p multiple EGDs in the past, schizoaffective disorder, Dementia, hypothyroidism, malnutrition, non verbal, infected obstuctive ureterolithiasis/ w abscess s/p L NT palced 12/2018, encephalopathy, Alzheimer's disease, multiple admissions, subacute facility resident who was sent to the for hypotension and bradycardia. Septic Shock- likely 2ry to UTI and PNA On multiple pressors Hx of resistant infections Urine Cx 06/14/19 - >100k ESBL P, stuarti, ESBL P mirabilis (both S Ertapenem , ZOsyn) Blood Cx - NTD CXR show probable pna sp cx p Leukocytosis; improving Hypothermia; improving Chronic resp failure trach/vent dependant asthma Dm2 CVA/TIA w/ hemiplegia Functional quadriplegia CAD CHF GIB s/p multiple EGDs in the past Schizoaffective disorder Dementia Hypothyroidism Non verbal Alzheimer's disease PLAN: - Continue Amikacin #2 and Ertapenem #2 and Vancomycin #2- pending Cx -D/c Flagyl #2 - f/u cultures B + U - monitor CBC and Temps Thank you for this consult. [facility] will continue to follow the patient with you during this hospitalization. Subjective Allergies: Coded Allergies: NO KNOWN DRUG ALLERGIES (Verified Allergy, Unknown, 09/11/16) Subjective hypothermia improved wbc improving Bcx NTD off noah, levo at 14 Objective Vital Signs Last 24 Hour Vital Signs Date Time Temp Pulse Resp B/P (MAP) Pulse Ox O2 Delivery O2 Flow Rate FiO2 06/16/19 10:51 95 19 35 06/16/19 10:30 94 17 102/48 (66) 100 06/16/19 10:15 93 18 99/66 (77) 99 06/16/19 10:00 91 18 96/55 (69) 100 06/16/19 09:45 93 18 102/44 (63) 100 06/16/19 09:30 93 17 102/55 (71) 99 06/16/19 09:15 91 18 114/56 (75) 100 06/16/19 09:00 88 17 106/55 (72) 100 06/16/19 08:56 91 19 35 06/16/19 08:45 89 17 101/51 (68) 100 06/16/19 08:30 87 18 104/56 (72) 100 06/16/19 08:15 86 21 93/62 (72) 100 06/16/19 08:00 Mechanical Ventilator 06/16/19 08:00 86 18 94/54 (67) 100 06/16/19 08:00 93 06/16/19 08:00 35 06/16/19 07:45 86 18 115/67 (83) 100 06/16/19 07:30 98.6 84 19 98/52 (67) 100 06/16/19 07:00 82 18 35 06/16/19 07:00 77 19 92/51 (65) 100 06/16/19 06:30 82 20 99/53 (68) 100 06/16/19 06:00 83 19 103/63 (76) 100 06/16/19 05:45 81 18 88/72 (77) 100 06/16/19 05:30 81 16 97/57 (70) 100 06/16/19 05:26 81 18 93/59 (70) 100 06/16/19 05:02 80 19 35 06/16/19 05:00 79 17 93/62 (72) 100 06/16/19 04:30 81 23 99/57 (71) 100 06/16/19 04:00 Mechanical Ventilator 06/16/19 04:00 35 06/16/19 04:00 94.7 77 20 123/57 (79) 99 06/16/19 04:00 80 06/16/19 03:52 94/51 06/16/19 03:30 79 17 102/62 (75) 100 06/16/19 03:03 75 17 35 06/16/19 03:00 75 16 94/62 (73) 100 06/16/19 02:30 71 19 95/44 (61) 100 06/16/19 02:00 80 23 67/55 (59) 99 06/16/19 01:30 77 17 105/59 (74) 100 06/16/19 01:00 72 18 67/40 (49) 99 10/7/19 00:45 76 18 35 06/16/19 00:30 77 23 94/51 (65) 100 06/16/19 00:16 94/51 06/16/19 00:00 75 06/16/19 00:00 35 06/16/19 00:00 Mechanical Ventilator 06/16/19 00:00 96.0 77 18 100/47 (64) 100 06/15/19 23:30 76 16 87/46 (60) 100 06/15/19 23:16 81 19 35 06/15/19 23:15 75 17 94/56 (69) 100 06/15/19 23:00 76 16 82/55 (64) 100 06/15/19 23:00 82/55 06/15/19 22:30 76 17 91/41 (58) 100 06/15/19 22:00 92/48 06/15/19 22:00 76 18 92/48 (63) 99 06/15/19 21:30 78 17 97/56 (70) 100 06/15/19 21:10 80 18 35 06/15/19 21:00 89/55 06/15/19 21:00 78 18 95/49 (64) 100 06/15/19 20:36 78 105/59 06/15/19 20:30 79 18 96/51 (66) 99 06/15/19 20:00 35 06/15/19 20:00 105/58 06/15/19 20:00 97.6 79 20 105/58 (74) 99 06/15/19 20:00 76 06/15/19 20:00 Mechanical Ventilator 06/15/19 19:30 80 18 108/53 (71) 99 06/15/19 19:01 78 19 35 06/15/19 19:00 81 19 105/59 (74) 99 06/15/19 19:00 111/55 06/15/19 18:30 80 20 110/53 (72) 99 06/15/19 18:00 80 19 113/54 (73) 99 06/15/19 17:49 114/66 06/15/19 17:30 76 21 114/66 (82) 100 06/15/19 17:26 77 17 35 06/15/19 17:00 76 19 79/45 (56) 99 06/15/19 16:30 78 20 97/49 (65) 100 06/15/19 16:00 98.7 78 22 113/58 (76) 100 06/15/19 16:00 35 06/15/19 16:00 81 06/15/19 16:00 Mechanical Ventilator 06/15/19 15:30 79 19 104/52 (69) 98 06/15/19 15:00 79 19 110/51 (70) 98 06/15/19 14:38 78 18 35 06/15/19 14:30 77 20 99/54 (69) 99 06/15/19 14:00 82 24 112/55 (74) 100 06/15/19 13:30 78 22 103/49 (67) 99 06/15/19 13:10 78 18 35 06/15/19 13:00 78 20 99/50 (66) 99 06/15/19 12:30 78 22 108/52 (70) 99 06/15/19 12:00 Mechanical Ventilator 06/15/19 12:00 35 06/15/19 12:00 77 06/15/19 12:00 98.5 75 21 88/55 (66) 99 06/15/19 11:57 77 101/82 06/15/19 11:57 101/82 06/15/19 11:30 77 21 101/82 (88) 99 Height (Feet): 5 Height (Inches): 8.00 Weight (Pounds): 150 Objective Gen: On vent in IVU HEENT: NCAT, MMM, PERRL, No Oral lesion, no scleral icterus NECK: supple, No LAD, No JVD, Trached LUNGS: Coarse B/L, No W/C CARDS: RRR, S1, S2, No M/R/G, ABD: Soft, NT, ND, No R/G, + BS, No HSM, No Masses, PEG : Deferred Ext: C/C/E, Pulses 2+ B/L (DP, Rad): NEURO: A/O x 0, no following SKIN: Warm/dry, No rashes Microbiology Date/Time Source Procedure Growth Status 06/14/19 12:30 Blood Blood Culture - Preliminary NO GROWTH AFTER 24 HOURS Resulted 06/14/19 12:15 Blood Blood Culture - Preliminary NO GROWTH AFTER 24 HOURS Resulted 06/14/19 13:00 Nasal Nares MRSA Culture - Final Staphylococcus Aureus - Mrsa Complete 06/14/19 14:00 Urine,Clean Catch Urine Culture - Preliminary Proteus Mirabilis Providencia Stuartii Resulted 06/14/19 13:00 Rectum - Final NO CARBAPENEM-RESISTANT ENTEROBACTERI... Complete Laboratory Tests Test 06/15/19 11:42 06/15/19 15:00 06/16/19 04:00 Urine Osmolality 337 mOsm/kg (429-449) L Urine Random Sodium 36 mmol/L (20-110) Vancomycin Level Trough 13.6 ug/mL (5.0-12.0) H White Blood Count 26.4 K/UL (4.8-10.8) *H Red Blood Count 2.71 M/UL (4.70-6.10) L Hemoglobin 7.5 G/DL (14.2-18.0) L Hematocrit 23.3 % (42.0-52.0) L Mean Corpuscular Volume 86 FL (80-99) Mean Corpuscular Hemoglobin 27.8 PG (27.0-31.0) Mean Corpuscular Hemoglobin Concent 32.3 G/DL (32.0-36.0) Red Cell Distribution Width 15.6 % (11.6-14.8) H Platelet Count 129 K/UL (150-450) L Mean Platelet Volume 8.4 FL (6.5-10.1) Neutrophils (%) (Auto) % (45.0-75.0) Lymphocytes (%) (Auto) % (20.0-45.0) Monocytes (%) (Auto) % (1.0-10.0) Eosinophils (%) (Auto) % (0.0-3.0) Basophils (%) (Auto) % (0.0-2.0) Differential Total Cells Counted 100 Neutrophils % (Manual) 88 % (45-75) H Lymphocytes % (Manual) 7 % (20-45) L Monocytes % (Manual) 5 % (1-10) Eosinophils % (Manual) 0 % (0-3) Basophils % (Manual) 0 % (0-2) Band Neutrophils 0 % (0-8) Platelet Estimate Decreased L Platelet Morphology Normal Hypochromasia 1+ Anisocytosis 1+ [place] Cells 1+ Sodium Level 132 MMOL/L (136-145) L Potassium Level 4.5 MMOL/L (3.5-5.1) Chloride Level 107 MMOL/L (98-107) Carbon Dioxide Level 16 MMOL/L (21-32) L Anion Gap 9 mmol/L (5-15) Blood Urea Nitrogen 36 mg/dL (7-18) H Creatinine 1.4 MG/DL (0.55-1.30) H Estimat Glomerular Filtration Rate 50.1 mL/min (>60) Glucose Level 146 MG/DL (74-106) H Hemoglobin A1c 5.5 % (4.3-6.0) Osmolality 287 mOsm/kg (297-317) L Uric Acid 4.4 MG/DL (2.6-7.2) Calcium Level 8.1 MG/DL (8.5-10.1) L Phosphorus Level 2.9 MG/DL (2.5-4.9) Magnesium Level 2.1 MG/DL (1.8-2.4) Total Bilirubin 0.2 MG/DL (0.2-1.0) Aspartate Amino Transf (AST/SGOT) 62 U/L (15-37) H Alanine Aminotransferase (ALT/SGPT) 69 U/L (12-78) Alkaline Phosphatase 168 U/L (46-116) H C-Reactive Protein, Quantitative 37.3 mg/dL (0.00-0.90) H Pro-B-Type Natriuretic Peptide 7417 pg/mL (0-125) H Total Protein 5.7 G/DL (6.4-8.2) L Albumin 1.9 G/DL (3.4-5.0) L Globulin 3.8 g/dL Albumin/Globulin Ratio 0.5 (1.0-2.7) L Random Amikacin Level 10.7 ug/mL Current Medications Medications (Trade) Dose Ordered Sig/Wanda Route PRN Reason Start Time Stop Time Status Last Admin Dose Admin Acetaminophen (Tylenol) 650 mg Q4H PRN GT fever (temp>100.5F) 06/14/19 14:30 07/14/19 14:29 Albuterol/ Ipratropium (Albuterol/ Ipratropium) 3 ml Q4H PRN HHN Shortness of Breath 06/14/19 14:30 06/19/19 14:29 Amikacin Protocol (Amikacin pharmacy to dose) 1 ea DAILY PRN MISC PER RX PROTOCOL 06/14/19 16:45 07/14/19 16:44 Chlorhexidine Gluconate (Jasmin-Hex 2%) 1 applic DAILY@2000 TOPIC 06/15/19 20:00 07/15/19 19:59 06/15/19 20:35 Dextrose/Sodium Chloride 1,000 ml @ 100 mls/hr Q10H IV 06/15/19 12:00 07/15/19 11:59 06/16/19 09:21 Ertapenem 1 gm/ Sodium Chloride 55 ml @ 110 mls/hr Q24H IV 06/14/19 21:00 06/21/19 20:59 06/15/19 20:35 Heparin Sodium (Porcine) (Heparin 5000 units/ml) 5,000 units EVERY 12 HOURS SUBQ 06/14/19 21:00 07/14/19 20:59 06/16/19 09:18 Levothyroxine Sodium (Synthroid) 50 mcg DAILY IV 06/16/19 09:00 07/16/19 08:59 06/16/19 09:13 Lorazepam (Ativan 2mg/ml 1ml) 2 mg Q2H PRN IV For Anxiety 06/14/19 14:30 06/21/19 14:29 Metronidazole 100 ml @ 100 mls/hr Q8H IVPB 06/15/19 09:00 06/22/19 08:59 06/16/19 09:47 Morphine Sulfate (Morphine Sulfate) 4 mg Q4H PRN IVP Severe Pain (Pain Scale 7-10) 06/14/19 14:30 06/21/19 14:29 Norepinephrine Bitartrate 8 mg/ Dextrose 500 ml @ 0 mls/hr Q24H IV 06/15/19 18:00 07/15/19 17:59 06/16/19 03:52 Ondansetron HCl (Zofran) 4 mg Q6H PRN IVP Nausea & Vomiting 06/14/19 14:30 07/14/19 14:29 06/15/19 02:37 Pantoprazole (Protonix) 40 mg BID IVP 06/15/19 18:00 07/15/19 08:59 06/16/19 09:13 Phenylephrine HCl 50 mg/Dextrose 250 ml @ 0 mls/hr Q24H IV 06/14/19 21:00 07/14/19 20:59 06/15/19 20:36 Polyethylene Glycol (Miralax) 17 gm DAILYPRN PRN GT Constipation 06/14/19 14:30 07/14/19 14:29 Vancomycin HCl (Firvanq) 250 mg Q8H GT 06/15/19 09:00 06/22/19 08:59 06/16/19 09:12 Vancomycin HCl (Vanco rx to dose) 1 ea DAILY PRN MISC PER RX PROTOCOL 06/14/19 16:45 07/14/19 16:44 Vancomycin HCl 750 mg/Sodium Chloride 275 ml @ 183.333 mls/hr Q12HR@0400,1600 IVPB 06/15/19 04:00 06/20/19 03:59 06/16/19 03:52 Lisy Lai M.D. Jun 16, 2019 11:11
--- NOTE | 2019-06-16 11:36 | Consultation ---
History of Present Illness General Date patient seen: Jun 16, 2019 Chief Complaint: General Complaint Reason for Consultation: Septic shock Present Illness HPI 68-year-old male with hx of Chronic respiratory failure, hypothyroid, malnutrition, encephalopathy, and Alzheimer's. from [facility] presented to ER with hypotension and bradycardia . He is lethargic, found to have septic shock, admitted to ICU for further care. Currently, pt is trach, vent, altered , lethargic in bed, and nonverbal on multiple drips. Allergies: Coded Allergies: NO KNOWN DRUG ALLERGIES (Verified Allergy, Unknown, 09/11/16) Medication History Scheduled Ascorbic Acid* (Vitamin C*), 500 MG GT DAILY, (Reported) Cranberry Extract (Cranberry), 425 MG GT BID, (Reported) Docusate Sodium* (Docusate Sodium*), 100 MG GT DAILY, (Reported) Ferrous Sulfate (Ferrous Sulfate), 7.5 ML GT THREE TIMES A DAY, (Reported) Levothyroxine Sodium* (Synthroid*), 150 MCG GT DAILY, (Reported) Multivitamin Liquid* (Multi-Delyn*), 15 ML GT DAILY, (Reported) Polyethylene Glycol 3350* (Miralax*), 17 GM ORAL DAILY, (Reported) Sucralfate (Sucralfate), 10 ML GT FOUR TIMES A DAY, (Reported) Scheduled PRN Acetaminophen (Acetaminophen), 640 MG GT Q4HR PRN for Prn Headache/Temp > 101, ( Reported) Acetaminophen* (Acetaminophen*), 640 MG GT Q4HR PRN for For Pain, (Reported) Patient History Healthcare decision maker NO FAMILY Resuscitation status Full Code Advanced Directive on File Yes Past Medical/Surgical History Past Medical/Surgical History: (1) HTN (hypertension) (2) CVA (cerebral vascular accident) (3) Feeding by G-tube (4) Severe protein-calorie malnutrition (5) Chronic respiratory failure (6) Severe erosive esophagitis Review of Systems All Other Systems: negative except mentioned in HPI Physical Exam General Appearance: WD/WN, no apparent distress Lines, tubes and drains: peripheral, central line HEENT: normocephalic, atraumatic Neck: non-tender, normal alignment Respiratory/Chest: chest wall non-tender, lungs clear Breasts: no masses Cardiovascular/Chest: normal peripheral pulses Abdomen: normal bowel sounds, non tender Genitourinary/Rectal: normal genital exam, normal rectal exam Extremities: normal range of motion Last 24 Hour Vital Signs Date Time Temp Pulse Resp B/P (MAP) Pulse Ox O2 Delivery O2 Flow Rate FiO2 06/16/19 10:51 95 19 35 06/16/19 10:30 94 17 102/48 (66) 100 06/16/19 10:15 93 18 99/66 (77) 99 06/16/19 10:00 91 18 96/55 (69) 100 06/16/19 09:45 93 18 102/44 (63) 100 06/16/19 09:30 93 17 102/55 (71) 99 06/16/19 09:15 91 18 114/56 (75) 100 06/16/19 09:00 88 17 106/55 (72) 100 06/16/19 08:56 91 19 35 06/16/19 08:45 89 17 101/51 (68) 100 06/16/19 08:30 87 18 104/56 (72) 100 06/16/19 08:15 86 21 93/62 (72) 100 06/16/19 08:00 Mechanical Ventilator 06/16/19 08:00 86 18 94/54 (67) 100 06/16/19 08:00 93 06/16/19 08:00 35 06/16/19 07:45 86 18 115/67 (83) 100 06/16/19 07:30 98.6 84 19 98/52 (67) 100 06/16/19 07:00 82 18 35 06/16/19 07:00 77 19 92/51 (65) 100 06/16/19 06:30 82 20 99/53 (68) 100 06/16/19 06:00 83 19 103/63 (76) 100 06/16/19 05:45 81 18 88/72 (77) 100 06/16/19 05:30 81 16 97/57 (70) 100 06/16/19 05:26 81 18 93/59 (70) 100 06/16/19 05:02 80 19 35 06/16/19 05:00 79 17 93/62 (72) 100 06/16/19 04:30 81 23 99/57 (71) 100 06/16/19 04:00 Mechanical Ventilator 06/16/19 04:00 35 06/16/19 04:00 94.7 77 20 123/57 (79) 99 06/16/19 04:00 80 06/16/19 03:52 94/51 06/16/19 03:30 79 17 102/62 (75) 100 06/16/19 03:03 75 17 35 06/16/19 03:00 75 16 94/62 (73) 100 06/16/19 02:30 71 19 95/44 (61) 100 06/16/19 02:00 80 23 67/55 (59) 99 06/16/19 01:30 77 17 105/59 (74) 100 06/16/19 01:00 72 18 67/40 (49) 99 06/16/19 00:45 76 18 35 06/16/19 00:30 77 23 94/51 (65) 100 06/16/19 00:16 94/51 06/16/19 00:00 75 06/16/19 00:00 35 06/16/19 00:00 Mechanical Ventilator 06/16/19 00:00 96.0 77 18 100/47 (64) 100 06/15/19 23:30 76 16 87/46 (60) 100 06/15/19 23:16 81 19 35 06/15/19 23:15 75 17 94/56 (69) 100 06/15/19 23:00 76 16 82/55 (64) 100 06/15/19 23:00 82/55 06/15/19 22:30 76 17 91/41 (58) 100 06/15/19 22:00 92/48 06/15/19 22:00 76 18 92/48 (63) 99 06/15/19 21:30 78 17 97/56 (70) 100 06/15/19 21:10 80 18 35 06/15/19 21:00 89/55 06/15/19 21:00 78 18 95/49 (64) 100 06/15/19 20:36 78 105/59 06/15/19 20:30 79 18 96/51 (66) 99 06/15/19 20:00 35 06/15/19 20:00 105/58 06/15/19 20:00 97.6 79 20 105/58 (74) 99 06/15/19 20:00 76 06/15/19 20:00 Mechanical Ventilator 06/15/19 19:30 80 18 108/53 (71) 99 06/15/19 19:01 78 19 35 06/15/19 19:00 81 19 105/59 (74) 99 06/15/19 19:00 111/55 06/15/19 18:30 80 20 110/53 (72) 99 06/15/19 18:00 80 19 113/54 (73) 99 06/15/19 17:49 114/66 06/15/19 17:30 76 21 114/66 (82) 100 06/15/19 17:26 77 17 35 06/15/19 17:00 76 19 79/45 (56) 99 06/15/19 16:30 78 20 97/49 (65) 100 06/15/19 16:00 98.7 78 22 113/58 (76) 100 06/15/19 16:00 35 06/15/19 16:00 81 06/15/19 16:00 Mechanical Ventilator 06/15/19 15:30 79 19 104/52 (69) 98 06/15/19 15:00 79 19 110/51 (70) 98 06/15/19 14:38 78 18 35 06/15/19 14:30 77 20 99/54 (69) 99 06/15/19 14:00 82 24 112/55 (74) 100 06/15/19 13:30 78 22 103/49 (67) 99 06/15/19 13:10 78 18 35 06/15/19 13:00 78 20 99/50 (66) 99 06/15/19 12:30 78 22 108/52 (70) 99 06/15/19 12:00 Mechanical Ventilator 06/15/19 12:00 35 06/15/19 12:00 77 06/15/19 12:00 98.5 75 21 88/55 (66) 99 06/15/19 11:57 77 101/82 06/15/19 11:57 101/82 Intake and Output 06/15/19 06/16/19 19:00 07:00 Intake Total 2832.0 ml 2385.5 ml Output Total 900 ml 1000 ml Balance 1932.0 ml 1385.5 ml Intake IV Total 2832.0 ml 2385.5 ml Output Urine Total 900 ml 1000 ml # Bowel Movements 2 Laboratory Tests Test 06/15/19 11:42 06/15/19 15:00 06/16/19 04:00 Urine Osmolality 337 mOsm/kg (429-449) L Urine Random Sodium 36 mmol/L (20-110) Vancomycin Level Trough 13.6 ug/mL (5.0-12.0) H White Blood Count 26.4 K/UL (4.8-10.8) *H Red Blood Count 2.71 M/UL (4.70-6.10) L Hemoglobin 7.5 G/DL (14.2-18.0) L Hematocrit 23.3 % (42.0-52.0) L Mean Corpuscular Volume 86 FL (80-99) Mean Corpuscular Hemoglobin 27.8 PG (27.0-31.0) Mean Corpuscular Hemoglobin Concent 32.3 G/DL (32.0-36.0) Red Cell Distribution Width 15.6 % (11.6-14.8) H Platelet Count 129 K/UL (150-450) L Mean Platelet Volume 8.4 FL (6.5-10.1) Neutrophils (%) (Auto) % (45.0-75.0) Lymphocytes (%) (Auto) % (20.0-45.0) Monocytes (%) (Auto) % (1.0-10.0) Eosinophils (%) (Auto) % (0.0-3.0) Basophils (%) (Auto) % (0.0-2.0) Differential Total Cells Counted 100 Neutrophils % (Manual) 88 % (45-75) H Lymphocytes % (Manual) 7 % (20-45) L Monocytes % (Manual) 5 % (1-10) Eosinophils % (Manual) 0 % (0-3) Basophils % (Manual) 0 % (0-2) Band Neutrophils 0 % (0-8) Platelet Estimate Decreased L Platelet Morphology Normal Hypochromasia 1+ Anisocytosis 1+ Evie Cells 1+ Sodium Level 132 MMOL/L (136-145) L Potassium Level 4.5 MMOL/L (3.5-5.1) Chloride Level 107 MMOL/L (98-107) Carbon Dioxide Level 16 MMOL/L (21-32) L Anion Gap 9 mmol/L (5-15) Blood Urea Nitrogen 36 mg/dL (7-18) H Creatinine 1.4 MG/DL (0.55-1.30) H Estimat Glomerular Filtration Rate 50.1 mL/min (>60) Glucose Level 146 MG/DL (74-106) H Hemoglobin A1c 5.5 % (4.3-6.0) Osmolality 287 mOsm/kg (297-317) L Uric Acid 4.4 MG/DL (2.6-7.2) Calcium Level 8.1 MG/DL (8.5-10.1) L Phosphorus Level 2.9 MG/DL (2.5-4.9) Magnesium Level 2.1 MG/DL (1.8-2.4) Total Bilirubin 0.2 MG/DL (0.2-1.0) Aspartate Amino Transf (AST/SGOT) 62 U/L (15-37) H Alanine Aminotransferase (ALT/SGPT) 69 U/L (12-78) Alkaline Phosphatase 168 U/L (46-116) H C-Reactive Protein, Quantitative 37.3 mg/dL (0.00-0.90) H Pro-B-Type Natriuretic Peptide 7417 pg/mL (0-125) H Total Protein 5.7 G/DL (6.4-8.2) L Albumin 1.9 G/DL (3.4-5.0) L Globulin 3.8 g/dL Albumin/Globulin Ratio 0.5 (1.0-2.7) L Random Amikacin Level 10.7 ug/mL Height (Feet): 5 Height (Inches): 8.00 Weight (Pounds): 150 Medications Current Medications Medications (Trade) Dose Ordered Sig/Wanda Route PRN Reason Start Time Stop Time Status Last Admin Dose Admin Acetaminophen (Tylenol) 650 mg Q4H PRN GT fever (temp>100.5F) 06/14/19 14:30 07/14/19 14:29 Albuterol/ Ipratropium (Albuterol/ Ipratropium) 3 ml Q4H PRN HHN Shortness of Breath 06/14/19 14:30 06/19/19 14:29 Amikacin Protocol (Amikacin pharmacy to dose) 1 ea DAILY PRN MISC PER RX PROTOCOL 06/14/19 16:45 07/14/19 16:44 Chlorhexidine Gluconate (Jasmin-Hex 2%) 1 applic DAILY@1999 TOPIC 06/15/19 20:00 07/15/19 19:59 06/15/19 20:35 Dextrose/Sodium Chloride 1,000 ml @ 100 mls/hr Q10H IV 06/15/19 12:00 07/15/19 11:59 06/16/19 09:21 Ertapenem 1 gm/ Sodium Chloride 55 ml @ 110 mls/hr Q24H IV 06/14/19 21:00 06/21/19 20:59 06/15/19 20:35 Heparin Sodium (Porcine) (Heparin 5000 units/ml) 5,000 units EVERY 12 HOURS SUBQ 06/14/19 21:00 07/14/19 20:59 06/16/19 09:18 Levothyroxine Sodium (Synthroid) 50 mcg DAILY IV 06/16/19 09:00 07/16/19 08:59 06/16/19 09:13 Lorazepam (Ativan 2mg/ml 1ml) 2 mg Q2H PRN IV For Anxiety 06/14/19 14:30 06/21/19 14:29 Morphine Sulfate (Morphine Sulfate) 4 mg Q4H PRN IVP Severe Pain (Pain Scale 7-10) 06/14/19 14:30 06/21/19 14:29 Norepinephrine Bitartrate 8 mg/ Dextrose 500 ml @ 0 mls/hr Q24H IV 06/15/19 18:00 07/15/19 17:59 06/16/19 03:52 Ondansetron HCl (Zofran) 4 mg Q6H PRN IVP Nausea & Vomiting 06/14/19 14:30 07/14/19 14:29 06/15/19 02:37 Pantoprazole (Protonix) 40 mg BID IVP 06/15/19 18:00 07/15/19 08:59 06/16/19 09:13 Phenylephrine HCl 50 mg/Dextrose 250 ml @ 0 mls/hr Q24H IV 06/14/19 21:00 07/14/19 20:59 06/15/19 20:36 Polyethylene Glycol (Miralax) 17 gm DAILYPRN PRN GT Constipation 06/14/19 14:30 07/14/19 14:29 Vancomycin HCl (Firvanq) 250 mg Q8H GT 06/15/19 09:00 06/22/19 08:59 06/16/19 09:12 Vancomycin HCl (Vanco rx to dose) 1 ea DAILY PRN MISC PER RX PROTOCOL 06/14/19 16:45 07/14/19 16:44 Vancomycin HCl 750 mg/Sodium Chloride 275 ml @ 183.333 mls/hr Q12HR@0400,1600 IVPB 06/15/19 04:00 06/20/19 03:59 06/16/19 03:52 Assessment/Plan Problem List: (1) Septic shock ICD Codes: A41.9 - Sepsis, unspecified organism; R65.21 - Severe sepsis with septic shock SNOMED: 81502974 (2) Acute encephalopathy ICD Codes: G93.40 - Encephalopathy, unspecified SNOMED: 2287054 (3) Severe erosive esophagitis (4) Chronic respiratory failure ICD Codes: J96.10 - Chronic respiratory failure, unspecified whether with hypoxia or hypercapnia SNOMED: 41980751 (5) Anemia ICD Codes: D64.9 - Anemia, unspecified SNOMED: 455612440 (6) Feeding by G-tube ICD Codes: Z93.1 - Gastrostomy status SNOMED: 539528509, 534979467 (7) CVA (cerebral vascular accident) ICD Codes: I63.9 - Cerebral infarction, unspecified SNOMED: 167013667 (8) Diabetes ICD Codes: E11.9 - Type 2 diabetes mellitus without complications SNOMED: 58301082 (9) Alzheimer's dementia ICD Codes: G30.9 - Alzheimer's disease, unspecified SNOMED: 37563016 Respiratory: monitor respiratory rate, adjust FIO2, CXR Cardiac: continue pressors, continue to monitor HR/BP Renal: check electrolytes Infectious Disease: check cultures Gastrointestinal: continue feedings/current rate Endocrine: monitor blood sugar, continue sliding scale insulin Hematologic: monitor H/H, transfuse if hgb<8.5 Neurologic: PRN Ativan, keep patient comfortable Affect: PRN ativan Prophylaxis: Heparin Time Spent (Minutes): 40 Notes Reviewed: 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 with: nurses, consultants, classification case manager Huma Keating MD Jun 16, 2019 11:36
--- NOTE | 2019-06-16 11:49 | Diagnostic Imaging Report ---
Indication: Dyspnea Technique: One view of the chest Comparison: 06/15/2019 Findings: There is a tracheostomy. There is hazy opacity at the right lung base, likely reflects developing pleural fluid, but could also indicate some infiltrate. There is central bronchial wall thickening again demonstrated. Mild interstitial prominence may be chronic or may reflect interstitial congestion. This is unchanged There may be increasing pleural fluid and retrocardiac consolidation on the left. Impression: Right lung opacity, either reflecting pleural fluid, consolidation, or both Developing left-sided pleural effusion and likely retrocardiac consolidation, over one day Stable possible mild interstitial congestion
--- NOTE | 2019-06-16 11:54 | General Progress Note ---
Progress Note Progress Note pt needs blood transfusion. He doesn't have any family members to consent for blood transfusion. Huma Keating MD Jun 16, 2019 11:54
--- NOTE | 2019-06-16 12:10 | NUR ---
NURSE NOTES: PATIENT VITAL SIGNS REMAINS SUSTAIN WITH LEVOPHED DRIP, NO NEW ONSET OR NEUROLOGICAL CHANGED. TURNED AND REPOSITIONED FOR SKIN MANAGEMENT. WILL CONTINUE TO MONITOR
--- NOTE | 2019-06-16 14:02 | NUR ---
NURSE NOTES: PT REMAINS ON LEVOPHED DRIP, DRIP TITRATE TOLERATED.WILL CONTINUE TO MONITOR.TURNED AND REPOSITIONED FOR SKIN MANAGEMENT.KEPT CLEAN AND DRY.CALL LIGHT WITHIN EASY REACH
--- NOTE | 2019-06-16 15:59 | NUR ---
NURSE NOTES: Went to blood bank twice to picker tender blood, blood bank still would not release the blood. patient unable to sign and does not have any relative, consent signed by Dr Keating with written order for emergent need for blood transfusion added to that the order, but blood bank still refusing to release blood.DON made aware and awaiting for clarification
--- NOTE | 2019-06-16 16:21 | Consultation ---
History of Present Illness General Chief Complaint: General Complaint Reason for Consultation: Septic shock Present Illness Allergies: Coded Allergies: NO KNOWN DRUG ALLERGIES (Verified Allergy, Unknown, 09/11/16) Medication History Scheduled Ascorbic Acid* (Vitamin C*), 500 MG GT DAILY, (Reported) Cranberry Extract (Cranberry), 425 MG GT BID, (Reported) Docusate Sodium* (Docusate Sodium*), 100 MG GT DAILY, (Reported) Ferrous Sulfate (Ferrous Sulfate), 7.5 ML GT THREE TIMES A DAY, (Reported) Levothyroxine Sodium* (Synthroid*), 150 MCG GT DAILY, (Reported) Multivitamin Liquid* (Multi-Delyn*), 15 ML GT DAILY, (Reported) Polyethylene Glycol 3350* (Miralax*), 17 GM ORAL DAILY, (Reported) Sucralfate (Sucralfate), 10 ML GT FOUR TIMES A DAY, (Reported) Scheduled PRN Acetaminophen (Acetaminophen), 640 MG GT Q4HR PRN for Prn Headache/Temp > 101, ( Reported) Acetaminophen* (Acetaminophen*), 640 MG GT Q4HR PRN for For Pain, (Reported) Patient History Healthcare decision maker NO FAMILY Resuscitation status Full Code Advanced Directive on File No Physical Exam Last 24 Hour Vital Signs Date Time Temp Pulse Resp B/P (MAP) Pulse Ox O2 Delivery O2 Flow Rate FiO2 06/16/19 16:00 97.7 101 17 106/53 (70) 100 06/16/19 15:30 101 17 106/53 (70) 100 06/16/19 15:25 101 18 35 06/16/19 15:00 99 17 97/54 (68) 100 06/16/19 14:30 99 15 100/53 (69) 100 06/16/19 14:00 99 17 106/60 (75) 100 06/16/19 13:30 101 17 108/56 (73) 100 06/16/19 13:15 99 17 102/55 (71) 100 06/16/19 13:02 101 20 35 06/16/19 13:00 98 19 103/61 (75) 100 06/16/19 13:00 98 17 103/57 (72) 100 06/16/19 12:53 Mechanical Ventilator 06/16/19 12:30 97 19 97/58 (71) 100 06/16/19 12:00 35 06/16/19 12:00 96.0 95 12 92/60 (71) 100 06/16/19 12:00 94 06/16/19 11:30 96 18 101/51 (68) 100 06/16/19 11:00 93 19 92/51 (65) 100 06/16/19 10:51 95 19 35 06/16/19 10:30 94 17 102/48 (66) 100 06/16/19 10:15 93 18 99/66 (77) 99 06/16/19 10:00 91 18 96/55 (69) 100 06/16/19 09:45 93 18 102/44 (63) 100 06/16/19 09:30 93 17 102/55 (71) 99 06/16/19 09:15 91 18 114/56 (75) 100 06/16/19 09:00 88 17 106/55 (72) 100 06/16/19 08:56 91 19 35 06/16/19 08:45 89 17 101/51 (68) 100 06/16/19 08:30 87 18 104/56 (72) 100 06/16/19 08:15 86 21 93/62 (72) 100 06/16/19 08:00 Mechanical Ventilator 06/16/19 08:00 86 18 94/54 (67) 100 06/16/19 08:00 93 06/16/19 08:00 35 06/16/19 07:45 86 18 115/67 (83) 100 06/16/19 07:30 94.6 84 19 98/52 (67) 100 06/16/19 07:00 82 18 35 06/16/19 07:00 77 19 92/51 (65) 100 06/16/19 06:30 82 20 99/53 (68) 100 06/16/19 06:00 83 19 103/63 (76) 100 06/16/19 05:45 81 18 88/72 (77) 100 06/16/19 05:30 81 16 97/57 (70) 100 06/16/19 05:26 81 18 93/59 (70) 100 06/16/19 05:02 80 19 35 06/16/19 05:00 79 17 93/62 (72) 100 06/16/19 04:30 81 23 99/57 (71) 100 06/16/19 04:00 Mechanical Ventilator 06/16/19 04:00 35 06/16/19 04:00 94.7 77 20 123/57 (79) 99 06/16/19 04:00 80 06/16/19 03:52 94/51 06/16/19 03:30 79 17 102/62 (75) 100 06/16/19 03:03 75 17 35 06/16/19 03:00 75 16 94/62 (73) 100 06/16/19 02:30 71 19 95/44 (61) 100 06/16/19 02:00 80 23 67/55 (59) 99 06/16/19 01:30 77 17 105/59 (74) 100 06/16/19 01:00 72 18 67/40 (49) 99 06/16/19 00:45 76 18 35 06/16/19 00:30 77 23 94/51 (65) 100 06/16/19 00:16 94/51 06/16/19 00:00 75 06/16/19 00:00 35 06/16/19 00:00 Mechanical Ventilator 06/16/19 00:00 96.0 77 18 100/47 (64) 100 06/15/19 23:30 76 16 87/46 (60) 100 06/15/19 23:16 81 19 35 06/15/19 23:15 75 17 94/56 (69) 100 06/15/19 23:00 76 16 82/55 (64) 100 06/15/19 23:00 82/55 06/15/19 22:30 76 17 91/41 (58) 100 06/15/19 22:00 92/48 06/15/19 22:00 76 18 92/48 (63) 99 06/15/19 21:30 78 17 97/56 (70) 100 06/15/19 21:10 80 18 35 06/15/19 21:00 89/55 06/15/19 21:00 78 18 95/49 (64) 100 06/15/19 20:36 78 105/59 06/15/19 20:30 79 18 96/51 (66) 99 06/15/19 20:00 35 06/15/19 20:00 105/58 06/15/19 20:00 97.6 79 20 105/58 (74) 99 06/15/19 20:00 76 06/15/19 20:00 Mechanical Ventilator 06/15/19 19:30 80 18 108/53 (71) 99 06/15/19 19:01 78 19 35 06/15/19 19:00 81 19 105/59 (74) 99 06/15/19 19:00 111/55 06/15/19 18:30 80 20 110/53 (72) 99 06/15/19 18:00 80 19 113/54 (73) 99 06/15/19 17:49 114/66 06/15/19 17:30 76 21 114/66 (82) 100 06/15/19 17:26 77 17 35 06/15/19 17:00 76 19 79/45 (56) 99 06/15/19 16:30 78 20 97/49 (65) 100 Intake and Output 06/15/19 06/16/19 19:00 07:00 Intake Total 2832.0 ml 2385.5 ml Output Total 900 ml 1000 ml Balance 1932.0 ml 1385.5 ml Intake IV Total 2832.0 ml 2385.5 ml Output Urine Total 900 ml 1000 ml # Bowel Movements 2 Laboratory Tests Test 06/16/19 04:00 White Blood Count 26.4 K/UL (4.8-10.8) *H Red Blood Count 2.71 M/UL (4.70-6.10) L Hemoglobin 7.5 G/DL (14.2-18.0) L Hematocrit 23.3 % (42.0-52.0) L Mean Corpuscular Volume 86 FL (80-99) Mean Corpuscular Hemoglobin 27.8 PG (27.0-31.0) Mean Corpuscular Hemoglobin Concent 32.3 G/DL (32.0-36.0) Red Cell Distribution Width 15.6 % (11.6-14.8) H Platelet Count 129 K/UL (150-450) L Mean Platelet Volume 8.4 FL (6.5-10.1) Neutrophils (%) (Auto) % (45.0-75.0) Lymphocytes (%) (Auto) % (20.0-45.0) Monocytes (%) (Auto) % (1.0-10.0) Eosinophils (%) (Auto) % (0.0-3.0) Basophils (%) (Auto) % (0.0-2.0) Differential Total Cells Counted 100 Neutrophils % (Manual) 88 % (45-75) H Lymphocytes % (Manual) 7 % (20-45) L Monocytes % (Manual) 5 % (1-10) Eosinophils % (Manual) 0 % (0-3) Basophils % (Manual) 0 % (0-2) Band Neutrophils 0 % (0-8) Platelet Estimate Decreased L Platelet Morphology Normal Hypochromasia 1+ Anisocytosis 1+ Evie Cells 1+ Sodium Level 132 MMOL/L (136-145) L Potassium Level 4.5 MMOL/L (3.5-5.1) Chloride Level 107 MMOL/L (98-107) Carbon Dioxide Level 16 MMOL/L (21-32) L Anion Gap 9 mmol/L (5-15) Blood Urea Nitrogen 36 mg/dL (7-18) H Creatinine 1.4 MG/DL (0.55-1.30) H Estimat Glomerular Filtration Rate 50.1 mL/min (>60) Glucose Level 146 MG/DL (74-106) H Hemoglobin A1c 5.5 % (4.3-6.0) Osmolality 287 mOsm/kg (297-317) L Uric Acid 4.4 MG/DL (2.6-7.2) Calcium Level 8.1 MG/DL (8.5-10.1) L Phosphorus Level 2.9 MG/DL (2.5-4.9) Magnesium Level 2.1 MG/DL (1.8-2.4) Total Bilirubin 0.2 MG/DL (0.2-1.0) Aspartate Amino Transf (AST/SGOT) 62 U/L (15-37) H Alanine Aminotransferase (ALT/SGPT) 69 U/L (12-78) Alkaline Phosphatase 168 U/L (46-116) H C-Reactive Protein, Quantitative 37.3 mg/dL (0.00-0.90) H Pro-B-Type Natriuretic Peptide 7417 pg/mL (0-125) H Total Protein 5.7 G/DL (6.4-8.2) L Albumin 1.9 G/DL (3.4-5.0) L Globulin 3.8 g/dL Albumin/Globulin Ratio 0.5 (1.0-2.7) L Random Amikacin Level 10.7 ug/mL Height (Feet): 5 Height (Inches): 8.00 Weight (Pounds): 150 Medications Current Medications Medications (Trade) Dose Ordered Sig/Wanda Route PRN Reason Start Time Stop Time Status Last Admin Dose Admin Acetaminophen (Tylenol) 650 mg Q4H PRN GT fever (temp>100.5F) 06/14/19 14:30 07/14/19 14:29 Albuterol/ Ipratropium (Albuterol/ Ipratropium) 3 ml Q4H PRN HHN Shortness of Breath 06/14/19 14:30 06/19/19 14:29 Amikacin Protocol (Amikacin pharmacy to dose) 1 ea DAILY PRN MISC PER RX PROTOCOL 06/14/19 16:45 07/14/19 16:44 Chlorhexidine Gluconate (Jasmin-Hex 2%) 1 applic DAILY@2000 TOPIC 06/15/19 20:00 07/15/19 19:59 06/15/19 20:35 Dextrose/Sodium Chloride 1,000 ml @ 100 mls/hr Q10H IV 06/15/19 12:00 07/15/19 11:59 06/16/19 09:21 Ertapenem 1 gm/ Sodium Chloride 55 ml @ 110 mls/hr Q24H IV 06/14/19 21:00 06/21/19 20:59 06/15/19 20:35 Heparin Sodium (Porcine) (Heparin 5000 units/ml) 5,000 units EVERY 12 HOURS SUBQ 06/14/19 21:00 07/14/19 20:59 06/16/19 09:18 Levothyroxine Sodium (Synthroid) 50 mcg DAILY IV 06/16/19 09:00 07/16/19 08:59 06/16/19 09:13 Lorazepam (Ativan 2mg/ml 1ml) 2 mg Q2H PRN IV For Anxiety 06/14/19 14:30 06/21/19 14:29 Morphine Sulfate (Morphine Sulfate) 4 mg Q4H PRN IVP Severe Pain (Pain Scale 7-10) 06/14/19 14:30 06/21/19 14:29 Norepinephrine Bitartrate 8 mg/ Dextrose 500 ml @ 0 mls/hr Q24H IV 06/15/19 18:00 07/15/19 17:59 06/16/19 03:52 Ondansetron HCl (Zofran) 4 mg Q6H PRN IVP Nausea & Vomiting 06/14/19 14:30 07/14/19 14:29 06/15/19 02:37 Pantoprazole (Protonix) 40 mg BID IVP 06/15/19 18:00 07/15/19 08:59 06/16/19 09:13 Phenylephrine HCl 50 mg/Dextrose 250 ml @ 0 mls/hr Q24H IV 06/14/19 21:00 07/14/19 20:59 06/15/19 20:36 Polyethylene Glycol (Miralax) 17 gm DAILYPRN PRN GT Constipation 06/14/19 14:30 07/14/19 14:29 Vancomycin HCl (Firvanq) 250 mg Q8H GT 06/15/19 09:00 06/22/19 08:59 06/16/19 09:12 Vancomycin HCl (Vanco rx to dose) 1 ea DAILY PRN MISC PER RX PROTOCOL 06/14/19 16:45 07/14/19 16:44 Vancomycin HCl 750 mg/Sodium Chloride 275 ml @ 183.333 mls/hr Q12HR@0400,1600 IVPB 06/15/19 04:00 06/20/19 03:59 06/16/19 03:52 Assessment/Plan Assessment/Plan: EMATOLOGY-ONCOLOGY CONSULTATION REFERRING MD: Gato Viveros REASON FOR CONSULT: Leukocytosis 36k, anemia, low plts DOS: 06/16/19 ID Consult called by Dr. Viveros 68-y old male admitted for GI bleed, has history of trach and PEG, admitted for leukocytosis and hypotension, on ressors, cannot obtain history from the patient. Hematology was consulted for the evaluation of anemia and leukocytosis. Anemia w/u has been ordered/reviewed from prior, patient is vent/ trach, nonverbal, i have seen him multiple times before PAST MEDICAL HISTORY: Constipation and chronic respiratory failure, hypothyroidism, constipation, GERD , history of pyelonephritis, history of hypertension, malnutrition, history of C. diff, history of dysphagia, history of esophagitis, history of GI bleed, history of UTI, history of anemia. PAST SURGICAL HISTORY: Tracheostomy and PEG. Cannot get any more history from the patient. ALLERGIES: No known allergies. FAMILY HISTORY: Unable to obtain. SOCIAL HISTORY: Unable to obtain. REVIEW OF SYSTEMS: Unable to obtain. PHYSICAL EXAMINATION: VITAL SIGNS: Have been reviewed HEENT: Trach/vent site is intact. CHEST: Bibasilar rales CARDIOVASCULAR: Regular rate and rhythm. GASTROINTESTINAL: Positive bowel sounds. G-tube site is intact. EXTREMITIES: + edema. NEUROLOGICAL: The patient does not follow neurological exam. Reflexes equal on both sides. No organomegaly. Labs: noted Meds: reviewed ASSESSMENT AND RECOMMENDATIONS # Anemia of chronic disease due to underlying chronic medical issues, multifactorial --> Anemia w/u has been ordered and reviewed and c/w acd ferritin 635, tibc 160 --> No evidence of hemolysis is noted, peripheral smear has been reviewed. --> Hgb goal >7. Transfuse prn. --> Epogen or iron at this time is not particularly indicated --> unable to obtain cosent, with no family --> r/o hemolysis as well # Leukocytosis. Likely related to underlying infection versus reactive process. patient with septic shock on admission --> Peripheral has been reviewed and no abnml cells noted at moment --> Medications have been reviewed --> Imaging has been reviewed. CXR shows Suboptimal positioning. No interval consolidation, overt edema or other acute cardiopulmonary findings. --> Blood cultures and urine cultures are pending. --> Has been started on abx, empiric treatment --> wbc is 36-->26k # Thrombocytopenia decreased since admission --> plt count 190-->123k # Septic shock poa --> on abx per id # Upper GI vomiting bleed in prior admission --> currently appears to have resolved # Trach and PEG. --> chronic # Hyperkalemia --> as per renal # Dvt ppx heparin sq The timing of this note does not necessarily reflect the time of the patient was seen. Greatly appreciate consultation. Nikos Nath MD Jun 16, 2019 16:21
[2019-06-16] MEDS ORDERED: LANSOPRAZOLE30 MG GT (16:29)
[2019-06-16] MEDS ORDERED: LEVOTHYROXINE75 MCG GT (16:29)
--- NOTE | 2019-06-16 16:46 | NUR ---
NURSE NOTES: Patient turned and repositioned.Blood transfusion started at 1630 and no adverse reaction noted after 15mn.Will continue close monitoring.HOB elevated at 35 degree to prevent aspiration.Call light within easy reach
--- NOTE | 2019-06-16 18:12 | NUR ---
NURSE NOTES: ADLS DONE,TURNED AND REPOSITIONED,KEPT CLEAN AND DRY. WILL CONTINUE TO MONITOR
--- NOTE | 2019-06-16 19:20 | NUR ---
NURSE NOTES: BLOOD TRANSFUSION COMPLETE WITH NO ADR NOTED.
--- NOTE | 2019-06-16 19:30 | NUR ---
HAND-OFF: Report given to ODILIA GREY.
--- NOTE | 2019-06-16 19:33 | NUR ---
NURSE NOTES: Received a bed bound pt non verbal, trache to vent on ac mode, hypotensive ST on the monitor, on Levophed drip at 6mcg/min infusing to RT SVC TLC. Site with drsg dry and intact. NPO at this time GT clamped. Pt also has IVF D5NS at 100ml/hr, pTS lower extremities contracted. Condom to gravity with moderate amt of yellowish urine. Monitor I and O. Monitor lytes. Will continue to monitor.
[2019-06-16] MEDS: Dyna-Hex 2% Top Sol 2oz TOPIC SCH (19:59)
--- NOTE | 2019-06-16 20:00 | NUR ---
NURSE NOTES: Turned to side for comfort, oral care done, Suctioned whitish tn secretions moderate in amt. HOB kept elevated. Watch for any resp. distress.
[2019-06-16] MEDS: Ertapenem 1 GM in NS 55 ML IV SCH (20:56)
[2019-06-16] MEDS: Phenylephrine 50 MG in D5W 245 ML IV SCH (21:00)
--- NOTE | 2019-06-16 22:00 | NUR ---
NURSE NOTES: Levophed drip down to 4mcg/min. SBP >90
[2019-06-17] VITALS (40 sets, daily range): BP systolic 76–120; BP diastolic 39–71
--- NOTE | 2019-06-17 | NUR ---
NURSE NOTES: Trache drsg was changed due to whitish bubbly secretions. 02 sat >95%.
[2019-06-17] MEDS: Vancomycin oral 125mg/2.5ml GT SCH ×2 (01:55→09:00)
--- NOTE | 2019-06-17 02:00 | NUR ---
NURSE NOTES: Complete bath with bed changed done. Skin remained intact,
--- NOTE | 2019-06-17 04:00 | NUR ---
NURSE NOTES: More alert at this time. Resist when doing pt care. VSS
[2019-06-17] MEDS: Vancomycin 750mg/NS 275ml IVPB SCH ×2 (04:06)
[2019-06-17] MEDS: D5NS 1,000 ML IV SCH ×3 (04:06→21:31)
--- NOTE | 2019-06-17 06:00 | NUR ---
NURSE NOTES: Levophed drip down to 1 mcg/min. SBP >90
[2019-06-17 06:18] LABS: HEMATOCRIT 25.2 % (42.0-52.0); MEAN CORPUSCULAR VOLUME 86 FL (80-99); PLATELET COUNT 80 K/UL (150-450); RED BLOOD COUNT 2.92 M/UL (4.70-6.10); RED CELL DISTRIBUTION WIDTH 15.5 % (11.6-14.8); WHITE BLOOD COUNT 9.2 K/UL (4.8-10.8)
--- NOTE | 2019-06-17 06:33 | NUR ---
NURSE NOTES: No resp. distress noted. Needs frequent suctioning.
[2019-06-17 06:41] LABS: ALANINE AMINOTRANSFERASE 55 U/L (12-78); ALBUMIN 1.8 G/DL (3.4-5.0); ALBUMIN/GLOBULIN RATIO 0.5 (1.0-2.7); ALKALINE PHOSPHATASE 194 U/L (46-116); ANION GAP 10 mmol/L (5-15); ASPARTATE AMINO TRANSFERASE 47 U/L (15-37); BILIRUBIN,TOTAL 0.2 MG/DL (0.2-1.0); BLOOD UREA NITROGEN 31 mg/dL (7-18); CALCIUM 8.6 MG/DL (8.5-10.1); CARBON DIOXIDE 15 MMOL/L (21-32); CHLORIDE 116 MMOL/L (98-107); CREATININE 1.4 MG/DL (0.55-1.30); POTASSIUM 4.2 MMOL/L (3.5-5.1); SODIUM 141 MMOL/L (136-145)
--- NOTE | 2019-06-17 07:00 | NUR ---
RESPIRATORY NOTES: Received Patient on Mechanical Ventilator settings RR 16, VT 600, FIO2 35%, PEEP +0. 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 Patient is awake and confused, showing no signs of distress. Bilateral rhonchi is heard throughout both lungs, in all lung wiseman. Suctioned a small amount of thick green/ yellow secretions through trache. Alarms are on and audible. Vent plugged into red outlet. Will continue to closely monitor throughout the day.
[2019-06-17 07:01] LABS: PHOSPHORUS 3.5 MG/DL (2.5-4.9)
--- NOTE | 2019-06-17 07:01 | Hematology/Onc Progress Note ---
Assessment/Plan Assessment/Plan ASSESSMENT AND RECOMMENDATIONS # Anemia of chronic disease due to underlying chronic medical issues, multifactorial --> Anemia w/u has been ordered and reviewed and c/w acd ferritin 635, tibc 160 --> No evidence of hemolysis is noted, peripheral smear has been reviewed. --> Hgb goal >7. Transfuse prn. --> Epogen or iron at this time is not particularly indicated --> unable to obtain cosent, with no family --> r/o hemolysis as well --> hgb 7.5-->8 # Leukocytosis. Likely related to underlying infection versus reactive process. patient with septic shock on admission --> Peripheral has been reviewed and no abnml cells noted at moment --> Medications have been reviewed --> Imaging has been reviewed. CXR shows Suboptimal positioning. No interval consolidation, overt edema or other acute cardiopulmonary findings. 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 Greatly appreciate consultation. Subjective Constitutional: Denies: no symptoms, chills, fever, malaise, weakness, other HEENT: Denies: no symptoms, eye pain, blurred vision, tearing, double vision, ear pain, ear discharge, nose pain, nose congestion, throat pain, throat swelling, mouth pain, mouth swelling, other Cardiovascular: Denies: no symptoms, chest pain, edema, irregular heart rate, lightheadedness, palpitations, syncope, other Respiratory: Denies: no symptoms, cough, shortness of breath, SOB with excertion, SOB at rest, sputum, wheezing, other Gastrointestinal/Abdominal: Denies: no symptoms, abdomen distended, abdominal pain, black stools, tarry stools, blood in stool, constipated, diarrhea, difficulty swallowing, nausea, poor appetite, poor fluid intake, rectal bleeding , vomiting, other Genitourinary: Denies: no symptoms, burning, discharge, frequency, flank pain, hematuria, incontinence, pain, urgency, other Neurologic/Psychiatric: Denies: no symptoms, anxiety, depressed, emotional problems, headache, numbness, paresthesia, pre-existing deficit, seizure, tingling, tremors, weakness, other Hematologic/Lymphatic: Denies: no symptoms, anemia, easy bleeding, easy bruising, adenopathy, other Allergies: Coded Allergies: NO KNOWN DRUG ALLERGIES (Verified Allergy, Unknown, 09/11/16) Subjective 06/17: blood transfusion completed, on low dose pressors, no bleeding noted Objective Objective Current Medications Medications (Trade) Dose Ordered Sig/Wanda Route PRN Reason Start Time Stop Time Status Last Admin Dose Admin Acetaminophen (Tylenol) 650 mg Q4H PRN GT fever (temp>100.5F) 06/14/19 14:30 07/14/19 14:29 Albuterol/ Ipratropium (Albuterol/ Ipratropium) 3 ml Q4H PRN HHN Shortness of Breath 06/14/19 14:30 06/19/19 14:29 Amikacin Protocol (Amikacin pharmacy to dose) 1 ea DAILY PRN MISC PER RX PROTOCOL 06/14/19 16:45 07/14/19 16:44 Chlorhexidine Gluconate (Jasmin-Hex 2%) 1 applic DAILY@2000 TOPIC 06/15/19 20:00 07/15/19 19:59 06/16/19 19:59 Dextrose/Sodium Chloride 1,000 ml @ 100 mls/hr Q10H IV 06/15/19 12:00 07/15/19 11:59 06/17/19 04:06 Ertapenem 1 gm/ Sodium Chloride 55 ml @ 110 mls/hr Q24H IV 06/14/19 21:00 06/21/19 20:59 06/16/19 20:56 Heparin Sodium (Porcine) (Heparin 5000 units/ml) 5,000 units EVERY 12 HOURS SUBQ 06/14/19 21:00 07/14/19 20:59 06/16/19 20:58 Levothyroxine Sodium (Synthroid) 50 mcg DAILY IV 06/16/19 09:00 07/16/19 08:59 06/16/19 09:13 Lorazepam (Ativan 2mg/ml 1ml) 2 mg Q2H PRN IV For Anxiety 06/14/19 14:30 06/21/19 14:29 Morphine Sulfate (Morphine Sulfate) 4 mg Q4H PRN IVP Severe Pain (Pain Scale 7-10) 06/14/19 14:30 06/21/19 14:29 Norepinephrine Bitartrate 8 mg/ Dextrose 500 ml @ 0 mls/hr Q24H IV 06/15/19 18:00 07/15/19 17:59 06/16/19 17:01 Ondansetron HCl (Zofran) 4 mg Q6H PRN IVP Nausea & Vomiting 06/14/19 14:30 07/14/19 14:29 06/15/19 02:37 Pantoprazole (Protonix) 40 mg BID IVP 06/15/19 18:00 07/15/19 08:59 06/16/19 17:09 Phenylephrine HCl 50 mg/Dextrose 250 ml @ 0 mls/hr Q24H IV 06/14/19 21:00 07/14/19 20:59 06/15/19 20:36 Polyethylene Glycol (Miralax) 17 gm DAILYPRN PRN GT Constipation 06/14/19 14:30 07/14/19 14:29 Vancomycin HCl (Firvanq) 250 mg Q8H GT 06/15/19 09:00 06/22/19 08:59 06/17/19 01:55 Vancomycin HCl (Vanco rx to dose) 1 ea DAILY PRN MISC PER RX PROTOCOL 06/14/19 16:45 07/14/19 16:44 Vancomycin HCl 750 mg/Sodium Chloride 275 ml @ 183.333 mls/hr Q12HR@0400,1600 IVPB 06/15/19 04:00 06/20/19 03:59 06/17/19 04:06 Last 24 Hour Vital Signs Date Time Temp Pulse Resp B/P (MAP) Pulse Ox O2 Delivery O2 Flow Rate FiO2 06/17/19 06:30 80 16 116/53 (74) 99 06/17/19 06:00 81 16 97/56 (70) 99 06/17/19 05:30 81 16 95/63 (74) 99 06/17/19 05:30 81 19 35 06/17/19 05:00 83 18 101/52 (68) 100 06/17/19 04:46 85 17 85/67 (73) 99 06/17/19 04:30 88 16 88/66 (73) 100 06/17/19 04:06 86/66 06/17/19 04:00 Mechanical Ventilator 06/17/19 04:00 35 06/17/19 04:00 98.0 86 16 106/68 (81) 100 06/17/19 04:00 86 06/17/19 03:30 87 17 101/53 (69) 99 06/17/19 03:14 88 17 35 06/17/19 03:00 106/68 06/17/19 03:00 89 15 102/56 (71) 100 06/17/19 02:30 89 16 102/67 (79) 100 06/17/19 02:00 87 16 104/44 (64) 100 06/17/19 02:00 102/67 06/17/19 01:30 83 16 92/52 (65) 100 06/17/19 01:00 92/52 06/17/19 01:00 85 16 87/52 (64) 100 06/17/19 00:41 83 16 35 06/17/19 00:30 86 16 92/48 (63) 99 06/17/19 00:00 87 15 94/54 (67) 99 06/17/19 00:00 92/48 06/17/19 00:00 98.4 87 15 92/48 (63) 99 06/17/19 00:00 35 06/17/19 00:00 87 06/17/19 00:00 Mechanical Ventilator 06/16/19 23:30 88 15 94/54 (67) 100 06/16/19 23:00 95 15 101/44 (63) 99 06/16/19 23:00 84 16 35 06/16/19 23:00 109/66 06/16/19 22:30 95 18 98/74 (82) 100 06/16/19 22:00 98 21 104/61 (75) 99 06/16/19 22:00 98/74 06/16/19 21:30 98 16 35 06/16/19 21:30 98 18 109/61 (77) 100 06/16/19 21:00 99 18 111/69 (83) 99 06/16/19 21:00 119/69 10/7/19 21:00 96 119/60 06/16/19 20:30 99 17 106/77 (87) 99 06/16/19 20:00 98.6 97 16 106/66 (79) 99 06/16/19 20:00 99 06/16/19 20:00 106/66 06/16/19 20:00 35 06/16/19 20:00 Mechanical Ventilator 06/16/19 19:30 99 18 121/65 (83) 99 06/16/19 19:30 101 18 35 06/16/19 19:00 98 18 114/60 (78) 100 06/16/19 18:30 99 17 105/66 (79) 100 06/16/19 18:00 99 21 97/64 (75) 100 06/16/19 17:30 100 18 66/29 (41) 100 06/16/19 17:20 103 18 35 06/16/19 17:01 102/56 06/16/19 17:00 102 17 97/52 (67) 100 06/16/19 16:30 103 17 87/74 (78) 100 06/16/19 16:00 97.7 101 17 106/53 (70) 100 06/16/19 16:00 35 06/16/19 16:00 102 06/16/19 16:00 Mechanical Ventilator 06/16/19 15:30 101 17 106/53 (70) 100 06/16/19 15:25 101 18 35 06/16/19 15:00 99 17 97/54 (68) 100 06/16/19 14:30 99 15 100/53 (69) 100 06/16/19 14:00 99 17 106/60 (75) 100 06/16/19 13:30 101 17 108/56 (73) 100 06/16/19 13:15 99 17 102/55 (71) 100 06/16/19 13:02 101 20 35 06/16/19 13:00 98 19 103/61 (75) 100 06/16/19 13:00 98 17 103/57 (72) 100 06/16/19 12:53 Mechanical Ventilator 06/16/19 12:30 97 19 97/58 (71) 100 06/16/19 12:00 35 06/16/19 12:00 96.0 95 12 92/60 (71) 100 06/16/19 12:00 94 06/16/19 11:30 96 18 101/51 (68) 100 06/16/19 11:00 93 19 92/51 (65) 100 06/16/19 10:51 95 19 35 06/16/19 10:30 94 17 102/48 (66) 100 06/16/19 10:15 93 18 99/66 (77) 99 06/16/19 10:00 91 18 96/55 (69) 100 06/16/19 09:45 93 18 102/44 (63) 100 06/16/19 09:30 93 17 102/55 (71) 99 06/16/19 09:15 91 18 114/56 (75) 100 06/16/19 09:00 88 17 106/55 (72) 100 06/16/19 08:56 91 19 35 06/16/19 08:45 89 17 101/51 (68) 100 06/16/19 08:30 87 18 104/56 (72) 100 06/16/19 08:15 86 21 93/62 (72) 100 06/16/19 08:00 Mechanical Ventilator 06/16/19 08:00 86 18 94/54 (67) 100 06/16/19 08:00 93 06/16/19 08:00 35 06/16/19 07:45 86 18 115/67 (83) 100 06/16/19 07:30 94.6 84 19 98/52 (67) 100 06/16/19 07:00 82 18 35 06/16/19 07:00 77 19 92/51 (65) 100 06/16/19 06:30 82 20 99/53 (68) 100 06/16/19 06:00 83 19 103/63 (76) 100 06/16/19 05:45 81 18 88/72 (77) 100 06/16/19 05:30 81 16 97/57 (70) 100 06/16/19 05:26 81 18 93/59 (70) 100 06/16/19 05:02 80 19 35 06/16/19 05:00 79 17 93/62 (72) 100 06/16/19 04:30 81 23 99/57 (71) 100 06/16/19 04:00 Mechanical Ventilator 06/16/19 04:00 35 06/16/19 04:00 94.7 77 20 123/57 (79) 99 06/16/19 04:00 80 06/16/19 03:52 94/51 06/16/19 03:30 79 17 102/62 (75) 100 06/16/19 03:03 75 17 35 06/16/19 03:00 75 16 94/62 (73) 100 06/16/19 02:30 71 19 95/44 (61) 100 06/16/19 02:00 80 23 67/55 (59) 99 06/16/19 01:30 77 17 105/59 (74) 100 06/16/19 01:00 72 18 67/40 (49) 99 06/16/19 00:45 76 18 35 06/16/19 00:30 77 23 94/51 (65) 100 06/16/19 00:16 94/51 06/16/19 00:00 75 06/16/19 00:00 35 06/16/19 00:00 Mechanical Ventilator 06/16/19 00:00 96.0 77 18 100/47 (64) 100 06/15/19 23:30 76 16 87/46 (60) 100 06/15/19 23:16 81 19 35 06/15/19 23:15 75 17 94/56 (69) 100 06/15/19 23:00 76 16 82/55 (64) 100 06/15/19 23:00 82/55 06/15/19 22:30 76 17 91/41 (58) 100 06/15/19 22:00 92/48 06/15/19 22:00 76 18 92/48 (63) 99 06/15/19 21:30 78 17 97/56 (70) 100 06/15/19 21:10 80 18 35 06/15/19 21:00 89/55 06/15/19 21:00 78 18 95/49 (64) 100 06/15/19 20:36 78 105/59 06/15/19 20:30 79 18 96/51 (66) 99 06/15/19 20:00 35 06/15/19 20:00 105/58 06/15/19 20:00 97.6 79 20 105/58 (74) 99 06/15/19 20:00 76 10/6/19 20:00 Mechanical Ventilator 06/15/19 19:30 80 18 108/53 (71) 99 06/15/19 19:01 78 19 35 06/15/19 19:00 81 19 105/59 (74) 99 06/15/19 19:00 111/55 06/15/19 18:30 80 20 110/53 (72) 99 06/15/19 18:00 80 19 113/54 (73) 99 06/15/19 17:49 114/66 06/15/19 17:30 76 21 114/66 (82) 100 06/15/19 17:26 77 17 35 06/15/19 17:00 76 19 79/45 (56) 99 06/15/19 16:30 78 20 97/49 (65) 100 06/15/19 16:00 98.7 78 22 113/58 (76) 100 06/15/19 16:00 35 06/15/19 16:00 81 06/15/19 16:00 Mechanical Ventilator 06/15/19 15:30 79 19 104/52 (69) 98 06/15/19 15:00 79 19 110/51 (70) 98 06/15/19 14:38 78 18 35 06/15/19 14:30 77 20 99/54 (69) 99 06/15/19 14:00 82 24 112/55 (74) 100 06/15/19 13:30 78 22 103/49 (67) 99 06/15/19 13:10 78 18 35 06/15/19 13:00 78 20 99/50 (66) 99 06/15/19 12:30 78 22 108/52 (70) 99 06/15/19 12:00 Mechanical Ventilator 06/15/19 12:00 35 06/15/19 12:00 77 06/15/19 12:00 98.5 75 21 88/55 (66) 99 06/15/19 11:57 77 101/82 06/15/19 11:57 101/82 06/15/19 11:30 77 21 101/82 (88) 99 06/15/19 11:00 77 21 92/55 (67) 99 06/15/19 10:31 80 21 35 06/15/19 10:30 81 20 98/52 (67) 100 06/15/19 10:00 82 22 93/59 (70) 99 06/15/19 09:30 81 23 103/63 (76) 99 06/15/19 09:00 89 22 116/53 (74) 99 06/15/19 08:41 87 25 35 06/15/19 08:30 90 24 105/49 (67) 99 06/15/19 08:00 95 06/15/19 08:00 Mechanical Ventilator 06/15/19 08:00 99.9 89 23 110/50 (70) 98 06/15/19 08:00 35 06/15/19 07:57 88 103/55 06/15/19 07:35 103/55 06/15/19 07:30 88 23 77/46 (56) 98 06/15/19 07:00 95 25 103/55 (71) 100 Intake and Output 06/16/19 06/17/19 19:00 07:00 Intake Total 914.166 ml 1314.58 ml Output Total 850 ml 1010 ml Balance 64.166 ml 304.58 ml Intake IV Total 914.166 ml 1314.58 ml Output Urine Total 850 ml 1010 ml Labs Test 06/14/19 12:30 06/14/19 14:00 06/14/19 15:00 06/15/19 06:05 White Blood Count 18.5 K/UL (4.8-10.8) 35.7 K/UL (4.8-10.8) Red Blood Count 3.64 M/UL (4.70-6.10) 2.93 M/UL (4.70-6.10) Hemoglobin 10.0 G/DL (14.2-18.0) 8.0 G/DL (14.2-18.0) Hematocrit 31.1 % (42.0-52.0) 25.0 % (42.0-52.0) Mean Corpuscular Volume 86 FL (80-99) 85 FL (80-99) Mean Corpuscular Hemoglobin 27.5 PG (27.0-31.0) 27.3 PG (27.0-31.0) Mean Corpuscular Hemoglobin Concent 32.1 G/DL (32.0-36.0) 32.0 G/DL (32.0-36.0) Red Cell Distribution Width 15.5 % (11.6-14.8) 16.0 % (11.6-14.8) Platelet Count 163 K/UL (150-450) 193 K/UL (150-450) Mean Platelet Volume 8.9 FL (6.5-10.1) 8.9 FL (6.5-10.1) Neutrophils (%) (Auto) % (45.0-75.0) % (45.0-75.0) Lymphocytes (%) (Auto) % (20.0-45.0) % (20.0-45.0) Monocytes (%) (Auto) % (1.0-10.0) % (1.0-10.0) Eosinophils (%) (Auto) % (0.0-3.0) % (0.0-3.0) Basophils (%) (Auto) % (0.0-2.0) % (0.0-2.0) Differential Total Cells Counted 100 100 Neutrophils % (Manual) 82 % (45-75) 67 % (45-75) Lymphocytes % (Manual) 4 % (20-45) 3 % (20-45) Monocytes % (Manual) 4 % (1-10) 4 % (1-10) Eosinophils % (Manual) 0 % (0-3) 0 % (0-3) Basophils % (Manual) 0 % (0-2) 0 % (0-2) Band Neutrophils 10 % (0-8) 25 % (0-8) Platelet Estimate Adequate Adequate Platelet Morphology Normal Normal Anisocytosis 1+ 1+ Prothrombin Time 11.5 SEC (9.30-11.50) Prothromb Time International Ratio 1.1 (0.9-1.1) Activated Partial Thromboplast Time 45 SEC (23-33) Sodium Level 126 MMOL/L (136-145) 126 MMOL/L (136-145) Potassium Level 4.5 MMOL/L (3.5-5.1) 5.5 MMOL/L (3.5-5.1) Chloride Level 96 MMOL/L (98-107) 100 MMOL/L (98-107) Carbon Dioxide Level 21 MMOL/L (21-32) 16 MMOL/L (21-32) Anion Gap 9 mmol/L (5-15) 10 mmol/L (5-15) Blood Urea Nitrogen 49 mg/dL (7-18) 47 mg/dL (7-18) Creatinine 0.7 MG/DL (0.55-1.30) 1.2 MG/DL (0.55-1.30) Estimat Glomerular Filtration Rate > 60 mL/min (>60) 59.9 mL/min (>60) Glucose Level 127 MG/DL (74-106) 102 MG/DL (74-106) Lactic Acid Level 2.40 mmol/L (0.4-2.0) 1.00 mmol/L (0.66-2.22) Calcium Level 9.5 MG/DL (8.5-10.1) 7.9 MG/DL (8.5-10.1) Phosphorus Level 1.6 MG/DL (2.5-4.9) Magnesium Level 2.6 MG/DL (1.8-2.4) Total Bilirubin 0.2 MG/DL (0.2-1.0) 0.3 MG/DL (0.2-1.0) Aspartate Amino Transf (AST/SGOT) 56 U/L (15-37) 56 U/L (15-37) Alanine Aminotransferase (ALT/SGPT) 74 U/L (12-78) 68 U/L (12-78) Alkaline Phosphatase 200 U/L (46-116) 148 U/L (46-116) Total Creatine Kinase 262 U/L (26-308) Creatine Kinase MB 49.8 NG/ML (0.0-3.6) Creatine Kinase MB Relative Index 19.0 Troponin I 0.000 ng/mL (0.000-0.056) Pro-B-Type Natriuretic Peptide 353 pg/mL (0-125) Total Protein 7.1 G/DL (6.4-8.2) 5.9 G/DL (6.4-8.2) Albumin 2.9 G/DL (3.4-5.0) 2.0 G/DL (3.4-5.0) Globulin 4.2 g/dL 3.9 g/dL Albumin/Globulin Ratio 0.7 (1.0-2.7) 0.5 (1.0-2.7) Lipase 774 U/L (73-393) Thyroid Stimulating Hormone (TSH) 5.582 uiU/mL (0.358-3.740) Free Thyroxine 1.21 NG/DL (0.76-1.46) Urine Color Yellow Urine Appearance Slightly cloudy Urine pH 7 (4.5-8.0) Urine Specific [place] 1.005 (1.005-1.035) Urine Protein 2+ (NEGATIVE) Urine Glucose (UA) Negative (NEGATIVE) Urine Ketones Negative (NEGATIVE) Urine Blood 2+ (NEGATIVE) Urine Nitrite Positive (NEGATIVE) Urine Bilirubin Negative (NEGATIVE) Urine Urobilinogen Normal MG/DL (0.0-1.0) Urine Leukocyte Esterase 3+ (NEGATIVE) Urine RBC 2-4 /HPF (0 - 0) Urine WBC 20-30 /HPF (0 - 0) Urine Squamous Epithelial Cells None /LPF (NONE/OCC) Urine Bacteria Few /HPF (NONE) Metamyelocytes % 1 % (0-0) Iron Level 56 ug/dL (50-175) Total Iron Binding Capacity 160 ug/dL (250-450) Percent Iron Saturation 35 % (15-50) Unsaturated Iron Binding 104 ug/dL (112-346) Ferritin 635 NG/ML (8-388) Direct Bilirubin 0.2 MG/DL (0.0-0.3) Vitamin B12 Level > 2000 PG/ML (193-986) Folate 18.5 NG/ML (8.6-58.9) Random Amikacin Level 24.9 ug/mL Test 06/15/19 08:28 06/15/19 11:42 06/15/19 15:00 06/16/19 04:00 Arterial Blood pH 7.301 (7.350-7.450) Arterial Blood Partial Pressure CO2 31.3 mmHg (35.0-45.0) Arterial Blood Partial Pressure O2 50.3 mmHg (75.0-100.0) Arterial Blood HCO3 15.1 mmol/L (22.0-26.0) Arterial Blood Oxygen Saturation 83.7 % (95-100) Arterial Blood Base Excess -10.3 (-2-2) Ger Test Positive Urine Osmolality 337 mOsm/kg (429-449) Urine Random Sodium 36 mmol/L (20-110) Vancomycin Level Trough 13.6 ug/mL (5.0-12.0) White Blood Count 26.4 K/UL (4.8-10.8) Red Blood Count 2.71 M/UL (4.70-6.10) Hemoglobin 7.5 G/DL (14.2-18.0) Hematocrit 23.3 % (42.0-52.0) Mean Corpuscular Volume 86 FL (80-99) Mean Corpuscular Hemoglobin 27.8 PG (27.0-31.0) Mean Corpuscular Hemoglobin Concent 32.3 G/DL (32.0-36.0) Red Cell Distribution Width 15.6 % (11.6-14.8) Platelet Count 129 K/UL (150-450) Mean Platelet Volume 8.4 FL (6.5-10.1) Neutrophils (%) (Auto) % (45.0-75.0) Lymphocytes (%) (Auto) % (20.0-45.0) Monocytes (%) (Auto) % (1.0-10.0) Eosinophils (%) (Auto) % (0.0-3.0) Basophils (%) (Auto) % (0.0-2.0) Differential Total Cells Counted 100 Neutrophils % (Manual) 88 % (45-75) Lymphocytes % (Manual) 7 % (20-45) Monocytes % (Manual) 5 % (1-10) Eosinophils % (Manual) 0 % (0-3) Basophils % (Manual) 0 % (0-2) Band Neutrophils 0 % (0-8) Platelet Estimate Decreased Platelet Morphology Normal Hypochromasia 1+ Anisocytosis 1+ Evie Cells 1+ Sodium Level 132 MMOL/L (136-145) Potassium Level 4.5 MMOL/L (3.5-5.1) Chloride Level 107 MMOL/L (98-107) Carbon Dioxide Level 16 MMOL/L (21-32) Anion Gap 9 mmol/L (5-15) Blood Urea Nitrogen 36 mg/dL (7-18) Creatinine 1.4 MG/DL (0.55-1.30) Estimat Glomerular Filtration Rate 50.1 mL/min (>60) Glucose Level 146 MG/DL (74-106) Hemoglobin A1c 5.5 % (4.3-6.0) Osmolality 287 mOsm/kg (297-317) Uric Acid 4.4 MG/DL (2.6-7.2) Calcium Level 8.1 MG/DL (8.5-10.1) Phosphorus Level 2.9 MG/DL (2.5-4.9) Magnesium Level 2.1 MG/DL (1.8-2.4) Total Bilirubin 0.2 MG/DL (0.2-1.0) Aspartate Amino Transf (AST/SGOT) 62 U/L (15-37) Alanine Aminotransferase (ALT/SGPT) 69 U/L (12-78) Alkaline Phosphatase 168 U/L (46-116) C-Reactive Protein, Quantitative 37.3 mg/dL (0.00-0.90) Pro-B-Type Natriuretic Peptide 7417 pg/mL (0-125) Total Protein 5.7 G/DL (6.4-8.2) Albumin 1.9 G/DL (3.4-5.0) Globulin 3.8 g/dL Albumin/Globulin Ratio 0.5 (1.0-2.7) Random Amikacin Level 10.7 ug/mL Test 06/17/19 05:45 White Blood Count 9.2 K/UL (4.8-10.8) Red Blood Count 2.92 M/UL (4.70-6.10) Hemoglobin 8.0 G/DL (14.2-18.0) Hematocrit 25.2 % (42.0-52.0) Mean Corpuscular Volume 86 FL (80-99) Mean Corpuscular Hemoglobin 27.4 PG (27.0-31.0) Mean Corpuscular Hemoglobin Concent 31.8 G/DL (32.0-36.0) Red Cell Distribution Width 15.5 % (11.6-14.8) Platelet Count 80 K/UL (150-450) Mean Platelet Volume 8.3 FL (6.5-10.1) Neutrophils (%) (Auto) % (45.0-75.0) Lymphocytes (%) (Auto) % (20.0-45.0) Monocytes (%) (Auto) % (1.0-10.0) Eosinophils (%) (Auto) % (0.0-3.0) Basophils (%) (Auto) % (0.0-2.0) Sodium Level 141 MMOL/L (136-145) Potassium Level 4.2 MMOL/L (3.5-5.1) Chloride Level 116 MMOL/L (98-107) Carbon Dioxide Level 15 MMOL/L (21-32) Anion Gap 10 mmol/L (5-15) Blood Urea Nitrogen 31 mg/dL (7-18) Creatinine 1.4 MG/DL (0.55-1.30) Estimat Glomerular Filtration Rate 50.1 mL/min (>60) Glucose Level 107 MG/DL (74-106) Calcium Level 8.6 MG/DL (8.5-10.1) Total Bilirubin 0.2 MG/DL (0.2-1.0) Aspartate Amino Transf (AST/SGOT) 47 U/L (15-37) Alanine Aminotransferase (ALT/SGPT) 55 U/L (12-78) Alkaline Phosphatase 194 U/L (46-116) Total Protein 5.5 G/DL (6.4-8.2) Albumin 1.8 G/DL (3.4-5.0) Globulin 3.7 g/dL Albumin/Globulin Ratio 0.5 (1.0-2.7) Height (Feet): 5 Height (Inches): 8.00 Weight (Pounds): 150 Objective PHYSICAL EXAMINATION: VITAL SIGNS: Have been reviewed HEENT: Trach/vent site ++ CHEST: Bibasilar rales CV: Regular rate and rhythm. GI: Positive bowel sounds. G-tube++ EXTREMITIES: + edema. NEUROLOGICAL: The patient does not follow neurological exam. Reflexes equal on both sides. No organomegaly. Nikos Nath MD Jun 17, 2019 07:01
--- NOTE | 2019-06-17 07:10 | NUR ---
NURSE NOTES: Report received from ODILIA Gurrola
--- NOTE | 2019-06-17 07:30 | NUR ---
HAND-OFF: Report given to .Rosalie HARTLEY
--- NOTE | 2019-06-17 07:53 | NUR ---
NURSE NOTE PATIENT AWAKE WITH FLAT AFFECT WHEN RECEIVED. NON RESPONSIVE TO VERBAL STIMULI BUT RESPONSE TO DEEP PAIN.AFEBRILE AT THIS TIME WITH NO SIGNS ACUTE DISTRESS.ON TRACH/VENT PORTEX 8 AC 16 VT 600 FIO2 35%.NPO WITH GT IN PLACE.PLACEMENT CHECKED AND INTACT WITH NO RESIDUAL AT THIS TIME.PT STILL NOTED WITH LARGE AMOUNT OF SECRETION.SUCTIONED TOLERATED AND MOUTH CARE DONE.ABDOMEN SOFT AND NON DISTENDED. HYPOACTIVE SOUNDS AND REMAINS ON CONDOM CATH WITH GOOD URINE OUTPUT YELLOW IN COLOR WITH NO APPARENT SEDIMENT.RIGHT SUBCLAVIAN TLC DRESSING CLEAN DRY AND INTACT AND RUNNING LEVOPHED AT 1MCG. TURNED AND REPOSITIONED FOR SKIN MANAGEMENT AND STILL NOTED WITH RIGHT METATARSAL HEAD , LEFT MALLEOLUS AND RIGHT LATERAL MALLEOLUS REDNESS BLANCHABLE. AFFECTED AREA COVERED WITH FOAM PROTECTIVE SKIN BARRIER. PATIENT WITH GENERALIZE SKIN SCRATCH AND BREAKDOWN.GT SITE REDNESS IMPROVING AND DRESSING CLEAN ,DRY AND INTACT.MOUTH CARE DONE AND HOB ELEVATED AT 35 DEGREE TO PREVENT ASPIRATION.3/4 SIDE RAILS UP FOR REPOSITIONING AND SAFETY AND BED LOCKED IN LOW POSITION.PATIENT KEPT CLEAN DRY AND COMFORTABLE .WILL CONTINUE TO MONITOR
[2019-06-17] MEDS: Heparin 5000 units/ml inj SUBQ SCH ×2 (09:00→21:00)
[2019-06-17] MEDS: Pantoprazole Inj IVP SCH ×2 (09:00→21:27)
--- NOTE | 2019-06-17 09:01 | NUR ---
NURSE NOTES: HEPARIN HELD PLT 80
--- NOTE | 2019-06-17 09:41 | General Progress Note ---
Assessment/Plan Problem List: (1) Diabetes ICD Codes: E11.9 - Type 2 diabetes mellitus without complications SNOMED: 32171380 (2) HTN (hypertension) ICD Codes: I10 - Essential (primary) hypertension SNOMED: 63429290 (3) CVA (cerebral vascular accident) ICD Codes: I63.9 - Cerebral infarction, unspecified SNOMED: 294145816 (4) Severe protein-calorie malnutrition ICD Codes: E43 - Unspecified severe protein-calorie malnutrition SNOMED: 305345865 (5) Feeding by G-tube ICD Codes: Z93.1 - Gastrostomy status SNOMED: 642792481, 211159974 (6) Respiratory failure, [id number]-utqebvl ICD Codes: J96.20 - Respiratory failure, egbha-fc-wvwsuoe SNOMED: 69517281 (7) Anemia ICD Codes: D64.9 - Anemia, unspecified SNOMED: 017312995 (8) Chronic respiratory failure ICD Codes: J96.10 - Chronic respiratory failure, unspecified whether with hypoxia or hypercapnia SNOMED: 27076368 (9) Septic shock ICD Codes: A41.9 - Sepsis, unspecified organism; R65.21 - Severe sepsis with septic shock SNOMED: 60395846 (10) Alzheimer's dementia ICD Codes: G30.9 - Alzheimer's disease, unspecified SNOMED: 87749400 (11) Severe sepsis ICD Codes: A41.9 - Sepsis, unspecified organism; R65.20 - Severe sepsis without septic shock SNOMED: 55664785 (12) Hypothyroidism ICD Codes: E03.9 - Hypothyroidism, unspecified SNOMED: 84124426 Status: unchanged Assessment/Plan: vent abx wean pressor cbc bmp am ltach eval Subjective Constitutional: Reports: weakness Allergies: Coded Allergies: NO KNOWN DRUG ALLERGIES (Verified Allergy, Unknown, 09/11/16) All Systems: reviewed and negative except above Subjective trach vent altered Objective Last 24 Hour Vital Signs Date Time Temp Pulse Resp B/P (MAP) Pulse Ox O2 Delivery O2 Flow Rate FiO2 06/17/19 09:00 75 16 35 06/17/19 07:30 79 16 105/59 (74) 99 06/17/19 07:00 78 19 102/71 (81) 100 06/17/19 07:00 78 16 35 06/17/19 06:30 80 16 116/53 (74) 99 06/17/19 06:00 81 16 97/56 (70) 99 06/17/19 05:30 81 16 95/63 (74) 99 06/17/19 05:30 81 19 35 06/17/19 05:00 83 18 101/52 (68) 100 06/17/19 04:46 85 17 85/67 (73) 99 06/17/19 04:30 88 16 88/66 (73) 100 06/17/19 04:06 86/66 06/17/19 04:00 Mechanical Ventilator 06/17/19 04:00 35 06/17/19 04:00 98.0 86 16 106/68 (81) 100 06/17/19 04:00 86 06/17/19 03:30 87 17 101/53 (69) 99 06/17/19 03:14 88 17 35 06/17/19 03:00 106/68 06/17/19 03:00 89 15 102/56 (71) 100 06/17/19 02:30 89 16 102/67 (79) 100 06/17/19 02:00 87 16 104/44 (64) 100 06/17/19 02:00 102/67 06/17/19 01:30 83 16 92/52 (65) 100 06/17/19 01:00 92/52 06/17/19 01:00 85 16 87/52 (64) 100 06/17/19 00:41 83 16 35 06/17/19 00:30 86 16 92/48 (63) 99 06/17/19 00:00 87 15 94/54 (67) 99 06/17/19 00:00 92/48 06/17/19 00:00 98.4 87 15 92/48 (63) 99 06/17/19 00:00 35 06/17/19 00:00 87 06/17/19 00:00 Mechanical Ventilator 06/16/19 23:30 88 15 94/54 (67) 100 06/16/19 23:00 95 15 101/44 (63) 99 06/16/19 23:00 84 16 35 06/16/19 23:00 109/66 06/16/19 22:30 95 18 98/74 (82) 100 06/16/19 22:00 98 21 104/61 (75) 99 06/16/19 22:00 98/74 06/16/19 21:30 98 16 35 06/16/19 21:30 98 18 109/61 (77) 100 06/16/19 21:00 99 18 111/69 (83) 99 06/16/19 21:00 119/69 06/16/19 21:00 96 119/60 06/16/19 20:30 99 17 106/77 (87) 99 06/16/19 20:00 98.6 97 16 106/66 (79) 99 06/16/19 20:00 99 06/16/19 20:00 106/66 06/16/19 20:00 35 06/16/19 20:00 Mechanical Ventilator 06/16/19 19:30 99 18 121/65 (83) 99 06/16/19 19:30 101 18 35 06/16/19 19:00 98 18 114/60 (78) 100 06/16/19 18:30 99 17 105/66 (79) 100 06/16/19 18:00 99 21 97/64 (75) 100 06/16/19 17:30 100 18 66/29 (41) 100 06/16/19 17:20 103 18 35 06/16/19 17:01 102/56 06/16/19 17:00 102 17 97/52 (67) 100 06/16/19 16:30 103 17 87/74 (78) 100 06/16/19 16:00 97.7 101 17 106/53 (70) 100 06/16/19 16:00 35 06/16/19 16:00 102 06/16/19 16:00 Mechanical Ventilator 06/16/19 15:30 101 17 106/53 (70) 100 06/16/19 15:25 101 18 35 06/16/19 15:00 99 17 97/54 (68) 100 06/16/19 14:30 99 15 100/53 (69) 100 06/16/19 14:00 99 17 106/60 (75) 100 06/16/19 13:30 101 17 108/56 (73) 100 06/16/19 13:15 99 17 102/55 (71) 100 06/16/19 13:02 101 20 35 06/16/19 13:00 98 19 103/61 (75) 100 06/16/19 13:00 98 17 103/57 (72) 100 06/16/19 12:53 Mechanical Ventilator 06/16/19 12:30 97 19 97/58 (71) 100 06/16/19 12:00 35 06/16/19 12:00 96.0 95 12 92/60 (71) 100 06/16/19 12:00 94 06/16/19 11:30 96 18 101/51 (68) 100 06/16/19 11:00 93 19 92/51 (65) 100 06/16/19 10:51 95 19 35 06/16/19 10:30 94 17 102/48 (66) 100 06/16/19 10:15 93 18 99/66 (77) 99 06/16/19 10:00 91 18 96/55 (69) 100 06/16/19 09:45 93 18 102/44 (63) 100 Intake and Output 06/16/19 06/17/19 19:00 07:00 Intake Total 914.166 ml 1314.58 ml Output Total 850 ml 1010 ml Balance 64.166 ml 304.58 ml Intake IV Total 914.166 ml 1314.58 ml Output Urine Total 850 ml 1010 ml Laboratory Tests 06/17/19 05:45: White Blood Count 9.2#, Red Blood Count 2.92L, Hemoglobin 8.0L, Hematocrit 25.2L , Mean Corpuscular Volume 86, Mean Corpuscular Hemoglobin 27.4, Mean Corpuscular Hemoglobin Concent 31.8L, Red Cell Distribution Width 15.5H, Platelet Count 80L, Mean Platelet Volume 8.3, Neutrophils (%) (Auto) , Lymphocytes (%) (Auto) , Monocytes (%) (Auto) , Eosinophils (%) (Auto) , Basophils (%) (Auto) , Differential Total Cells Counted 100, Neutrophils % ( Manual) 82H, Lymphocytes % (Manual) 11L, Monocytes % (Manual) 5, Eosinophils % ( Manual) 2, Basophils % (Manual) 0, Band Neutrophils 0, Nucleated Red Blood Cells 1, Platelet Estimate DecreasedL, Platelet Morphology Normal, Anisocytosis 1+, Acanthocytes 1+, Erythrocyte Sedimentation Rate 80H, Sodium Level 141, Potassium Level 4.2, Chloride Level 116H, Carbon Dioxide Level 15L, Anion Gap 10 , Blood Urea Nitrogen 31H, Creatinine 1.4H, Estimat Glomerular Filtration Rate 50.1, Glucose Level 107H, Uric Acid 5.4, Calcium Level 8.6, Phosphorus Level 3.5 , Magnesium Level 2.3, Total Bilirubin 0.2, Aspartate Amino Transf (AST/SGOT) 47H, Alanine Aminotransferase (ALT/SGPT) 55, Alkaline Phosphatase 194H, C- Reactive Protein, Quantitative 28.4H, Pro-B-Type Natriuretic Peptide 58117B, Total Protein 5.5L, Albumin 1.8L, Globulin 3.7, Albumin/Globulin Ratio 0.5L, Cortisol AM Sample [Pending], Random Amikacin Level 4.8 Height (Feet): 5 Height (Inches): 8.00 Weight (Pounds): 150 General Appearance: lethargic EENT: normal ENT inspection Neck: normal alignment Cardiovascular: normal peripheral pulses, normal rate, regular rhythm Respiratory/Chest: chest wall non-tender, lungs clear, normal breath sounds Abdomen: normal bowel sounds, non tender, soft Extremities: normal inspection Edema: no edema noted Arm (L), no edema noted Arm (R), no edema noted Leg (L), no edema noted Leg (R), no edema noted Pedal (L), no edema noted Pedal (R), no edema noted Generalized Neurologic: motor weakness Skin: normal pigmentation, warm/dry Gato Viveros DO Jun 17, 2019 09:41
--- NOTE | 2019-06-17 10:12 | NUR ---
NURSE NOTES: No neurological change, vital signs stable at this time.Pt turned and repositioned for skin management.will continue to monitor
--- NOTE | 2019-06-17 11:02 | Pulmonolgy Critical Care Note ---
Critical Care - Asmt/Plan Problems: (1) Septic shock (2) Pyelonephritis (3) Chronic respiratory failure (4) Alzheimer's dementia (5) Severe erosive esophagitis (6) Feeding by G-tube (7) Diabetes (8) CVA (cerebral vascular accident) Respiratory: monitor respiratory rate, adjust FIO2, CXR Cardiac: continue pressors, continue to monitor HR/BP Renal: F/U I&O, keep IV fluid Infectious Disease: check cultures Gastrointestinal: continue feedings/current rate Endocrine: monitor blood sugar Hematologic: monitor H/H Neurologic: PRN Ativan Affect: PRN ativan Prophylaxis: Protonix Disposition: keep in ICU Time Spent (Minutes): 40 Notes Reviewed: telecom coordinator, ID Discussed with: nurses, consultants, case pickermanager risk management - Objective Last 24 Hour Vital Signs Date Time Temp Pulse Resp B/P (MAP) Pulse Ox O2 Delivery O2 Flow Rate FiO2 06/17/19 10:00 74 16 90/51 (64) 100 06/17/19 09:30 72 16 90/51 (64) 100 06/17/19 09:00 75 16 35 06/17/19 09:00 72 15 106/56 (73) 99 06/17/19 08:30 75 14 87/65 (72) 99 06/17/19 08:00 35 06/17/19 08:00 Mechanical Ventilator 06/17/19 08:00 79 16 101/63 (76) 99 06/17/19 08:00 79 06/17/19 07:30 79 16 105/59 (74) 99 06/17/19 07:00 78 19 102/71 (81) 100 06/17/19 07:00 90/51 06/17/19 07:00 78 16 35 06/17/19 06:30 80 16 116/53 (74) 99 06/17/19 06:00 81 16 97/56 (70) 99 06/17/19 05:30 81 16 95/63 (74) 99 06/17/19 05:30 81 19 35 06/17/19 05:00 83 18 101/52 (68) 100 06/17/19 04:46 85 17 85/67 (73) 99 06/17/19 04:30 88 16 88/66 (73) 100 06/17/19 04:06 86/66 06/17/19 04:00 Mechanical Ventilator 06/17/19 04:00 35 06/17/19 04:00 98.0 86 16 106/68 (81) 100 06/17/19 04:00 86 06/17/19 03:30 87 17 101/53 (69) 99 06/17/19 03:14 88 17 35 06/17/19 03:00 106/68 06/17/19 03:00 89 15 102/56 (71) 100 06/17/19 02:30 89 16 102/67 (79) 100 06/17/19 02:00 87 16 104/44 (64) 100 06/17/19 02:00 102/67 06/17/19 01:30 83 16 92/52 (65) 100 06/17/19 01:00 92/52 06/17/19 01:00 85 16 87/52 (64) 100 06/17/19 00:41 83 16 35 06/17/19 00:30 86 16 92/48 (63) 99 06/17/19 00:00 87 15 94/54 (67) 99 06/17/19 00:00 92/48 06/17/19 00:00 98.4 87 15 92/48 (63) 99 06/17/19 00:00 35 06/17/19 00:00 87 06/17/19 00:00 Mechanical Ventilator 06/16/19 23:30 88 15 94/54 (67) 100 06/16/19 23:00 95 15 101/44 (63) 99 06/16/19 23:00 84 16 35 06/16/19 23:00 109/66 06/16/19 22:30 95 18 98/74 (82) 100 06/16/19 22:00 98 21 104/61 (75) 99 06/16/19 22:00 98/74 06/16/19 21:30 98 16 35 06/16/19 21:30 98 18 109/61 (77) 100 06/16/19 21:00 99 18 111/69 (83) 99 06/16/19 21:00 119/69 06/16/19 21:00 96 119/60 06/16/19 20:30 99 17 106/77 (87) 99 06/16/19 20:00 98.6 97 16 106/66 (79) 99 06/16/19 20:00 99 06/16/19 20:00 106/66 06/16/19 20:00 35 06/16/19 20:00 Mechanical Ventilator 06/16/19 19:30 99 18 121/65 (83) 99 06/16/19 19:30 101 18 35 06/16/19 19:00 98 18 114/60 (78) 100 06/16/19 18:30 99 17 105/66 (79) 100 06/16/19 18:00 99 21 97/64 (75) 100 06/16/19 17:30 100 18 66/29 (41) 100 06/16/19 17:20 103 18 35 06/16/19 17:01 102/56 06/16/19 17:00 102 17 97/52 (67) 100 06/16/19 16:30 103 17 87/74 (78) 100 06/16/19 16:00 97.7 101 17 106/53 (70) 100 06/16/19 16:00 35 06/16/19 16:00 102 06/16/19 16:00 Mechanical Ventilator 06/16/19 15:30 101 17 106/53 (70) 100 06/16/19 15:25 101 18 35 06/16/19 15:00 99 17 97/54 (68) 100 06/16/19 14:30 99 15 100/53 (69) 100 06/16/19 14:00 99 17 106/60 (75) 100 06/16/19 13:30 101 17 108/56 (73) 100 06/16/19 13:15 99 17 102/55 (71) 100 06/16/19 13:02 101 20 35 06/16/19 13:00 98 19 103/61 (75) 100 06/16/19 13:00 98 17 103/57 (72) 100 06/16/19 12:53 Mechanical Ventilator 06/16/19 12:30 97 19 97/58 (71) 100 06/16/19 12:00 35 06/16/19 12:00 96.0 95 12 92/60 (71) 100 06/16/19 12:00 94 06/16/19 11:30 96 18 101/51 (68) 100 06/16/19 11:00 93 19 92/51 (65) 100 Status: awake Condition: critical Neck: full ROM Lungs: chest wall tender Heart: HR/BP stable Extremities: no C/C/E Micro: Microbiology Date/Time Source Procedure Growth Status 06/14/19 12:30 Blood Blood Culture - Preliminary NO GROWTH AFTER 48 HOURS Resulted 06/14/19 12:15 Blood Blood Culture - Preliminary NO GROWTH AFTER 48 HOURS Resulted 06/14/19 13:00 Nasal Nares MRSA Culture - Final Staphylococcus Aureus - Mrsa Complete 06/14/19 14:00 Urine,Clean Catch Urine Culture - Final Proteus Mirabilis Esbl Providencia Stuartii Complete 06/14/19 13:00 Rectum - Final NO CARBAPENEM-RESISTANT ENTEROBACTERI... Complete Critical Care - Subjective ROS Limited/Unobtainable: Yes Condition: critical EKG Rhythm: Sinus Rhythm FI02: 35 Vent Support Breath Rate: 16 Vent Support Mode: AC Vent Tidal Volume: 600 Sputum Amount: Moderate PEEP: 0.0 PIP: 35 I&O: Intake and Output 06/16/19 06/17/19 19:00 07:00 Intake Total 914.166 ml 1414.58 ml Output Total 850 ml 1010 ml Balance 64.166 ml 404.58 ml Intake IV Total 914.166 ml 1414.58 ml Output Urine Total 850 ml 1010 ml CXR: no change Labs: Laboratory Tests Test 06/17/19 05:45 White Blood Count 9.2 K/UL (4.8-10.8) # Red Blood Count 2.92 M/UL (4.70-6.10) L Hemoglobin 8.0 G/DL (14.2-18.0) L Hematocrit 25.2 % (42.0-52.0) L Mean Corpuscular Volume 86 FL (80-99) Mean Corpuscular Hemoglobin 27.4 PG (27.0-31.0) Mean Corpuscular Hemoglobin Concent 31.8 G/DL (32.0-36.0) L Red Cell Distribution Width 15.5 % (11.6-14.8) H Platelet Count 80 K/UL (150-450) L Mean Platelet Volume 8.3 FL (6.5-10.1) Neutrophils (%) (Auto) % (45.0-75.0) Lymphocytes (%) (Auto) % (20.0-45.0) Monocytes (%) (Auto) % (1.0-10.0) Eosinophils (%) (Auto) % (0.0-3.0) Basophils (%) (Auto) % (0.0-2.0) Differential Total Cells Counted 100 Neutrophils % (Manual) 82 % (45-75) H Lymphocytes % (Manual) 11 % (20-45) L Monocytes % (Manual) 5 % (1-10) Eosinophils % (Manual) 2 % (0-3) Basophils % (Manual) 0 % (0-2) Band Neutrophils 0 % (0-8) Nucleated Red Blood Cells 1 /100 WBC Platelet Estimate Decreased L Platelet Morphology Normal Anisocytosis 1+ Acanthocytes 1+ Erythrocyte Sedimentation Rate 80 MM/HR (0-20) H Sodium Level 141 MMOL/L (136-145) Potassium Level 4.2 MMOL/L (3.5-5.1) Chloride Level 116 MMOL/L (98-107) H Carbon Dioxide Level 15 MMOL/L (21-32) L Anion Gap 10 mmol/L (5-15) Blood Urea Nitrogen 31 mg/dL (7-18) H Creatinine 1.4 MG/DL (0.55-1.30) H Estimat Glomerular Filtration Rate 50.1 mL/min (>60) Glucose Level 107 MG/DL (74-106) H Uric Acid 5.4 MG/DL (2.6-7.2) Calcium Level 8.6 MG/DL (8.5-10.1) Phosphorus Level 3.5 MG/DL (2.5-4.9) Magnesium Level 2.3 MG/DL (1.8-2.4) Total Bilirubin 0.2 MG/DL (0.2-1.0) Aspartate Amino Transf (AST/SGOT) 47 U/L (15-37) H Alanine Aminotransferase (ALT/SGPT) 55 U/L (12-78) Alkaline Phosphatase 194 U/L (46-116) H C-Reactive Protein, Quantitative 28.4 mg/dL (0.00-0.90) H Pro-B-Type Natriuretic Peptide 62071 pg/mL (0-125) H Total Protein 5.5 G/DL (6.4-8.2) L Albumin 1.8 G/DL (3.4-5.0) L Globulin 3.7 g/dL Albumin/Globulin Ratio 0.5 (1.0-2.7) L Cortisol AM Sample Pending Random Amikacin Level 4.8 ug/mL Huma Keating MD Jun 17, 2019 11:01
--- NOTE | 2019-06-17 11:07 | Infectious Diseases Prog Note ---
Assessment/Plan Assessment/Plan Mr. Huffman is a 68 yo male with PMHx of of chronic resp failure trach/vent dependant, diffuse ulcerative esophagitis, peptic esophageal stricture, asthma, GERD, Dm2, CVA/TIA w/ hemiplegia, functional quadriplegia, CAD, CHF, ESBL UTI , GIB s/p multiple EGDs in the past, schizoaffective disorder, Dementia, hypothyroidism, malnutrition, non verbal, infected obstuctive ureterolithiasis/ w abscess s/p L NT palced 12/2018, encephalopathy, Alzheimer's disease, multiple admissions, subacute facility resident who was sent to the for hypotension and bradycardia. Septic Shock- likely 2ry to UTI and PNA pressors requirement down Hx of resistant infections Urine Cx 06/14/19 - >100k ESBL P, stuarti, ESBL P mirabilis (both S Ertapenem , ZOsyn) Blood Cx - NTD CXR show probable pna sp cx p Leukocytosis; SP Hypothermia; SP Chronic resp failure trach/vent dependant asthma Dm2 CVA/TIA w/ hemiplegia Functional quadriplegia CAD CHF GIB s/p multiple EGDs in the past Schizoaffective disorder Dementia Hypothyroidism Non verbal Alzheimer's disease PLAN: - Continue Amikacin #3 and Ertapenem #3 and Vancomycin #3- pending sp Cx -D/c PO Vancomycin #3 -06/16 SP Flagyl #2 - f/u cultures B + U - monitor CBC and Temps - sp cx Thank you for this consult. [facility] will continue to follow the patient with you during this hospitalization. Subjective Allergies: Coded Allergies: NO KNOWN DRUG ALLERGIES (Verified Allergy, Unknown, 09/11/16) Subjective hypothermia resolved leukocytosis resolved Bcx NTD levophed down to 1 Objective Vital Signs Last 24 Hour Vital Signs Date Time Temp Pulse Resp B/P (MAP) Pulse Ox O2 Delivery O2 Flow Rate FiO2 06/17/19 10:00 74 16 90/51 (64) 100 06/17/19 09:30 72 16 90/51 (64) 100 06/17/19 09:00 75 16 35 06/17/19 09:00 72 15 106/56 (73) 99 06/17/19 08:30 75 14 87/65 (72) 99 06/17/19 08:00 35 06/17/19 08:00 Mechanical Ventilator 06/17/19 08:00 79 16 101/63 (76) 99 06/17/19 08:00 79 06/17/19 07:30 79 16 105/59 (74) 99 06/17/19 07:00 78 19 102/71 (81) 100 06/17/19 07:00 90/51 06/17/19 07:00 78 16 35 06/17/19 06:30 80 16 116/53 (74) 99 06/17/19 06:00 81 16 97/56 (70) 99 06/17/19 05:30 81 16 95/63 (74) 99 06/17/19 05:30 81 19 35 06/17/19 05:00 83 18 101/52 (68) 100 06/17/19 04:46 85 17 85/67 (73) 99 06/17/19 04:30 88 16 88/66 (73) 100 06/17/19 04:06 86/66 06/17/19 04:00 Mechanical Ventilator 06/17/19 04:00 35 06/17/19 04:00 98.0 86 16 106/68 (81) 100 06/17/19 04:00 86 06/17/19 03:30 87 17 101/53 (69) 99 06/17/19 03:14 88 17 35 06/17/19 03:00 106/68 06/17/19 03:00 89 15 102/56 (71) 100 06/17/19 02:30 89 16 102/67 (79) 100 06/17/19 02:00 87 16 104/44 (64) 100 06/17/19 02:00 102/67 06/17/19 01:30 83 16 92/52 (65) 100 06/17/19 01:00 92/52 06/17/19 01:00 85 16 87/52 (64) 100 06/17/19 00:41 83 16 35 06/17/19 00:30 86 16 92/48 (63) 99 06/17/19 00:00 87 15 94/54 (67) 99 06/17/19 00:00 92/48 06/17/19 00:00 98.4 87 15 92/48 (63) 99 06/17/19 00:00 35 06/17/19 00:00 87 06/17/19 00:00 Mechanical Ventilator 06/16/19 23:30 88 15 94/54 (67) 100 06/16/19 23:00 95 15 101/44 (63) 99 06/16/19 23:00 84 16 35 06/16/19 23:00 109/66 06/16/19 22:30 95 18 98/74 (82) 100 06/16/19 22:00 98 21 104/61 (75) 99 06/16/19 22:00 98/74 06/16/19 21:30 98 16 35 06/16/19 21:30 98 18 109/61 (77) 100 06/16/19 21:00 99 18 111/69 (83) 99 06/16/19 21:00 119/69 06/16/19 21:00 96 119/60 06/16/19 20:30 99 17 106/77 (87) 99 06/16/19 20:00 98.6 97 16 106/66 (79) 99 06/16/19 20:00 99 06/16/19 20:00 106/66 06/16/19 20:00 35 06/16/19 20:00 Mechanical Ventilator 06/16/19 19:30 99 18 121/65 (83) 99 06/16/19 19:30 101 18 35 06/16/19 19:00 98 18 114/60 (78) 100 06/16/19 18:30 99 17 105/66 (79) 100 06/16/19 18:00 99 21 97/64 (75) 100 06/16/19 17:30 100 18 66/29 (41) 100 06/16/19 17:20 103 18 35 06/16/19 17:01 102/56 06/16/19 17:00 102 17 97/52 (67) 100 06/16/19 16:30 103 17 87/74 (78) 100 06/16/19 16:00 97.7 101 17 106/53 (70) 100 06/16/19 16:00 35 06/16/19 16:00 102 06/16/19 16:00 Mechanical Ventilator 06/16/19 15:30 101 17 106/53 (70) 100 06/16/19 15:25 101 18 35 06/16/19 15:00 99 17 97/54 (68) 100 06/16/19 14:30 99 15 100/53 (69) 100 06/16/19 14:00 99 17 106/60 (75) 100 06/16/19 13:30 101 17 108/56 (73) 100 06/16/19 13:15 99 17 102/55 (71) 100 06/16/19 13:02 101 20 35 06/16/19 13:00 98 19 103/61 (75) 100 06/16/19 13:00 98 17 103/57 (72) 100 06/16/19 12:53 Mechanical Ventilator 06/16/19 12:30 97 19 97/58 (71) 100 06/16/19 12:00 35 06/16/19 12:00 96.0 95 12 92/60 (71) 100 06/16/19 12:00 94 06/16/19 11:30 96 18 101/51 (68) 100 Height (Feet): 5 Height (Inches): 8.00 Weight (Pounds): 150 Objective Gen: On vent in IVU HEENT: NCAT, MMM, PERRL, No Oral lesion, no scleral icterus NECK: supple, No LAD, No JVD, Trached LUNGS: Coarse B/L, No W/C CARDS: RRR, S1, S2, No M/R/G, ABD: Soft, NT, ND, No R/G, + BS, No HSM, No Masses, PEG : Deferred Ext: C/C/E, Pulses 2+ B/L (DP, Rad): NEURO: A/O x 0, no following SKIN: Warm/dry, No rashes Microbiology Date/Time Source Procedure Growth Status 06/14/19 12:30 Blood Blood Culture - Preliminary NO GROWTH AFTER 48 HOURS Resulted 06/14/19 12:15 Blood Blood Culture - Preliminary NO GROWTH AFTER 48 HOURS Resulted 06/14/19 13:00 Nasal Nares MRSA Culture - Final Staphylococcus Aureus - Mrsa Complete 06/14/19 14:00 Urine,Clean Catch Urine Culture - Final Proteus Mirabilis Esbl Providencia Stuartii Complete 06/14/19 13:00 Rectum - Final NO CARBAPENEM-RESISTANT ENTEROBACTERI... Complete Laboratory Tests Test 06/17/19 05:45 White Blood Count 9.2 K/UL (4.8-10.8) # Red Blood Count 2.92 M/UL (4.70-6.10) L Hemoglobin 8.0 G/DL (14.2-18.0) L Hematocrit 25.2 % (42.0-52.0) L Mean Corpuscular Volume 86 FL (80-99) Mean Corpuscular Hemoglobin 27.4 PG (27.0-31.0) Mean Corpuscular Hemoglobin Concent 31.8 G/DL (32.0-36.0) L Red Cell Distribution Width 15.5 % (11.6-14.8) H Platelet Count 80 K/UL (150-450) L Mean Platelet Volume 8.3 FL (6.5-10.1) Neutrophils (%) (Auto) % (45.0-75.0) Lymphocytes (%) (Auto) % (20.0-45.0) Monocytes (%) (Auto) % (1.0-10.0) Eosinophils (%) (Auto) % (0.0-3.0) Basophils (%) (Auto) % (0.0-2.0) Differential Total Cells Counted 100 Neutrophils % (Manual) 82 % (45-75) H Lymphocytes % (Manual) 11 % (20-45) L Monocytes % (Manual) 5 % (1-10) Eosinophils % (Manual) 2 % (0-3) Basophils % (Manual) 0 % (0-2) Band Neutrophils 0 % (0-8) Nucleated Red Blood Cells 1 /100 WBC Platelet Estimate Decreased L Platelet Morphology Normal Anisocytosis 1+ Acanthocytes 1+ Erythrocyte Sedimentation Rate 80 MM/HR (0-20) H Sodium Level 141 MMOL/L (136-145) Potassium Level 4.2 MMOL/L (3.5-5.1) Chloride Level 116 MMOL/L (98-107) H Carbon Dioxide Level 15 MMOL/L (21-32) L Anion Gap 10 mmol/L (5-15) Blood Urea Nitrogen 31 mg/dL (7-18) H Creatinine 1.4 MG/DL (0.55-1.30) H Estimat Glomerular Filtration Rate 50.1 mL/min (>60) Glucose Level 107 MG/DL (74-106) H Uric Acid 5.4 MG/DL (2.6-7.2) Calcium Level 8.6 MG/DL (8.5-10.1) Phosphorus Level 3.5 MG/DL (2.5-4.9) Magnesium Level 2.3 MG/DL (1.8-2.4) Total Bilirubin 0.2 MG/DL (0.2-1.0) Aspartate Amino Transf (AST/SGOT) 47 U/L (15-37) H Alanine Aminotransferase (ALT/SGPT) 55 U/L (12-78) Alkaline Phosphatase 194 U/L (46-116) H C-Reactive Protein, Quantitative 28.4 mg/dL (0.00-0.90) H Pro-B-Type Natriuretic Peptide 24728 pg/mL (0-125) H Total Protein 5.5 G/DL (6.4-8.2) L Albumin 1.8 G/DL (3.4-5.0) L Globulin 3.7 g/dL Albumin/Globulin Ratio 0.5 (1.0-2.7) L Cortisol AM Sample Pending Random Amikacin Level 4.8 ug/mL Current Medications Medications (Trade) Dose Ordered Sig/Wanda Route PRN Reason Start Time Stop Time Status Last Admin Dose Admin Acetaminophen (Tylenol) 650 mg Q4H PRN GT fever (temp>100.5F) 06/14/19 14:30 07/14/19 14:29 Albuterol/ Ipratropium (Albuterol/ Ipratropium) 3 ml Q4H PRN HHN Shortness of Breath 06/14/19 14:30 06/19/19 14:29 Amikacin Protocol (Amikacin pharmacy to dose) 1 ea DAILY PRN MISC PER RX PROTOCOL 06/14/19 16:45 07/14/19 16:44 Chlorhexidine Gluconate (Jasmin-Hex 2%) 1 applic DAILY@2000 TOPIC 06/15/19 20:00 07/15/19 19:59 06/16/19 19:59 Dextrose/Sodium Chloride 1,000 ml @ 100 mls/hr Q10H IV 06/15/19 12:00 07/15/19 11:59 06/17/19 04:06 Ertapenem 1 gm/ Sodium Chloride 55 ml @ 110 mls/hr Q24H IV 06/14/19 21:00 06/21/19 20:59 06/16/19 20:56 Heparin Sodium (Porcine) (Heparin 5000 units/ml) 5,000 units EVERY 12 HOURS SUBQ 06/14/19 21:00 07/14/19 20:59 06/16/19 20:58 Levothyroxine Sodium (Synthroid) 50 mcg DAILY IV 06/16/19 09:00 07/16/19 08:59 06/17/19 09:00 Lorazepam (Ativan 2mg/ml 1ml) 2 mg Q2H PRN IV For Anxiety 06/14/19 14:30 06/21/19 14:29 Morphine Sulfate (Morphine Sulfate) 4 mg Q4H PRN IVP Severe Pain (Pain Scale 7-10) 06/14/19 14:30 06/21/19 14:29 Norepinephrine Bitartrate 8 mg/ Dextrose 500 ml @ 0 mls/hr Q24H IV 06/15/19 18:00 07/15/19 17:59 06/16/19 17:01 Ondansetron HCl (Zofran) 4 mg Q6H PRN IVP Nausea & Vomiting 06/14/19 14:30 07/14/19 14:29 06/15/19 02:37 Pantoprazole (Protonix) 40 mg BID IVP 06/15/19 18:00 07/15/19 08:59 06/17/19 09:00 Phenylephrine HCl 50 mg/Dextrose 250 ml @ 0 mls/hr Q24H IV 06/14/19 21:00 07/14/19 20:59 06/15/19 20:36 Polyethylene Glycol (Miralax) 17 gm DAILYPRN PRN GT Constipation 06/14/19 14:30 07/14/19 14:29 Vancomycin HCl (Firvanq) 250 mg Q8H GT 06/15/19 09:00 06/22/19 08:59 06/17/19 09:00 Vancomycin HCl (Vanco rx to dose) 1 ea DAILY PRN MISC PER RX PROTOCOL 06/14/19 16:45 07/14/19 16:44 Vancomycin HCl 750 mg/Sodium Chloride 275 ml @ 183.333 mls/hr Q12HR@0400,1600 IVPB 06/15/19 04:00 06/20/19 03:59 06/17/19 04:06 Lisy Lai M.D. Jun 17, 2019 11:07
--- NOTE | 2019-06-17 11:21 | Nephrology Progress Note ---
Assessment/Plan Problem List: (1) Septic shock (2) Hypothyroidism (3) Upper GI bleed (4) Respiratory failure, oqtku-[id number]-vdbuyap (5) Anemia Assessment Sepsis Shock on pressors GI Bleed Low Na and high K UTI HypoThyroidism Tracheostomy dependence Respiratory failure, [id number]-[id number] Alzheimer's Feeding by G-tube Plan start Midodrine start GT feeding start Reglan fluid challenge as needed adjust IV fluids transfuse as needed Monitor lytes and renal parametrs urine studies per orders Subjective ROS Limited/Unobtainable: Yes Objective Objective Last 24 Hour Vital Signs Date Time Temp Pulse Resp B/P (MAP) Pulse Ox O2 Delivery O2 Flow Rate FiO2 06/17/19 10:00 74 16 90/51 (64) 100 06/17/19 09:30 72 16 90/51 (64) 100 06/17/19 09:00 75 16 35 06/17/19 09:00 72 15 106/56 (73) 99 06/17/19 08:30 75 14 87/65 (72) 99 06/17/19 08:00 35 06/17/19 08:00 Mechanical Ventilator 06/17/19 08:00 79 16 101/63 (76) 99 06/17/19 08:00 79 06/17/19 07:30 79 16 105/59 (74) 99 06/17/19 07:00 78 19 102/71 (81) 100 06/17/19 07:00 90/51 06/17/19 07:00 78 16 35 06/17/19 06:30 80 16 116/53 (74) 99 06/17/19 06:00 81 16 97/56 (70) 99 06/17/19 05:30 81 16 95/63 (74) 99 06/17/19 05:30 81 19 35 06/17/19 05:00 83 18 101/52 (68) 100 06/17/19 04:46 85 17 85/67 (73) 99 06/17/19 04:30 88 16 88/66 (73) 100 06/17/19 04:06 86/66 06/17/19 04:00 Mechanical Ventilator 06/17/19 04:00 35 06/17/19 04:00 98.0 86 16 106/68 (81) 100 06/17/19 04:00 86 06/17/19 03:30 87 17 101/53 (69) 99 06/17/19 03:14 88 17 35 06/17/19 03:00 106/68 06/17/19 03:00 89 15 102/56 (71) 100 06/17/19 02:30 89 16 102/67 (79) 100 06/17/19 02:00 87 16 104/44 (64) 100 06/17/19 02:00 102/67 06/17/19 01:30 83 16 92/52 (65) 100 06/17/19 01:00 92/52 06/17/19 01:00 85 16 87/52 (64) 100 06/17/19 00:41 83 16 35 06/17/19 00:30 86 16 92/48 (63) 99 06/17/19 00:00 87 15 94/54 (67) 99 06/17/19 00:00 92/48 06/17/19 00:00 98.4 87 15 92/48 (63) 99 06/17/19 00:00 35 06/17/19 00:00 87 06/17/19 00:00 Mechanical Ventilator 06/16/19 23:30 88 15 94/54 (67) 100 06/16/19 23:00 95 15 101/44 (63) 99 06/16/19 23:00 84 16 35 06/16/19 23:00 109/66 06/16/19 22:30 95 18 98/74 (82) 100 06/16/19 22:00 98 21 104/61 (75) 99 06/16/19 22:00 98/74 06/16/19 21:30 98 16 35 06/16/19 21:30 98 18 109/61 (77) 100 06/16/19 21:00 99 18 111/69 (83) 99 06/16/19 21:00 119/69 06/16/19 21:00 96 119/60 06/16/19 20:30 99 17 106/77 (87) 99 06/16/19 20:00 98.6 97 16 106/66 (79) 99 06/16/19 20:00 99 06/16/19 20:00 106/66 06/16/19 20:00 35 06/16/19 20:00 Mechanical Ventilator 06/16/19 19:30 99 18 121/65 (83) 99 06/16/19 19:30 101 18 35 06/16/19 19:00 98 18 114/60 (78) 100 06/16/19 18:30 99 17 105/66 (79) 100 06/16/19 18:00 99 21 97/64 (75) 100 06/16/19 17:30 100 18 66/29 (41) 100 06/16/19 17:20 103 18 35 06/16/19 17:01 102/56 06/16/19 17:00 102 17 97/52 (67) 100 06/16/19 16:30 103 17 87/74 (78) 100 06/16/19 16:00 97.7 101 17 106/53 (70) 100 06/16/19 16:00 35 06/16/19 16:00 102 06/16/19 16:00 Mechanical Ventilator 06/16/19 15:30 101 17 106/53 (70) 100 06/16/19 15:25 101 18 35 06/16/19 15:00 99 17 97/54 (68) 100 06/16/19 14:30 99 15 100/53 (69) 100 06/16/19 14:00 99 17 106/60 (75) 100 06/16/19 13:30 101 17 108/56 (73) 100 06/16/19 13:15 99 17 102/55 (71) 100 06/16/19 13:02 101 20 35 06/16/19 13:00 98 19 103/61 (75) 100 06/16/19 13:00 98 17 103/57 (72) 100 06/16/19 12:53 Mechanical Ventilator 06/16/19 12:30 97 19 97/58 (71) 100 06/16/19 12:00 35 06/16/19 12:00 96.0 95 12 92/60 (71) 100 06/16/19 12:00 94 06/16/19 11:30 96 18 101/51 (68) 100 Intake and Output 06/16/19 06/17/19 19:00 07:00 Intake Total 914.166 ml 1414.58 ml Output Total 850 ml 1010 ml Balance 64.166 ml 404.58 ml Intake IV Total 914.166 ml 1414.58 ml Output Urine Total 850 ml 1010 ml Laboratory Tests 06/17/19 05:45: White Blood Count 9.2#, Red Blood Count 2.92L, Hemoglobin 8.0L, Hematocrit 25.2L , Mean Corpuscular Volume 86, Mean Corpuscular Hemoglobin 27.4, Mean Corpuscular Hemoglobin Concent 31.8L, Red Cell Distribution Width 15.5H, Platelet Count 80L, Mean Platelet Volume 8.3, Neutrophils (%) (Auto) , Lymphocytes (%) (Auto) , Monocytes (%) (Auto) , Eosinophils (%) (Auto) , Basophils (%) (Auto) , Differential Total Cells Counted 100, Neutrophils % ( Manual) 82H, Lymphocytes % (Manual) 11L, Monocytes % (Manual) 5, Eosinophils % ( Manual) 2, Basophils % (Manual) 0, Band Neutrophils 0, Nucleated Red Blood Cells 1, Platelet Estimate DecreasedL, Platelet Morphology Normal, Anisocytosis 1+, Acanthocytes 1+, Erythrocyte Sedimentation Rate 80H, Sodium Level 141, Potassium Level 4.2, Chloride Level 116H, Carbon Dioxide Level 15L, Anion Gap 10 , Blood Urea Nitrogen 31H, Creatinine 1.4H, Estimat Glomerular Filtration Rate 50.1, Glucose Level 107H, Uric Acid 5.4, Calcium Level 8.6, Phosphorus Level 3.5 , Magnesium Level 2.3, Total Bilirubin 0.2, Aspartate Amino Transf (AST/SGOT) 47H, Alanine Aminotransferase (ALT/SGPT) 55, Alkaline Phosphatase 194H, C- Reactive Protein, Quantitative 28.4H, Pro-B-Type Natriuretic Peptide 39845L, Total Protein 5.5L, Albumin 1.8L, Globulin 3.7, Albumin/Globulin Ratio 0.5L, Cortisol AM Sample 12.5, Random Amikacin Level 4.8 Height (Feet): 5 Height (Inches): 8.00 Weight (Pounds): 150 General Appearance: no apparent distress Cardiovascular: normal rate Respiratory/Chest: decreased breath sounds Abdomen: distended Sav Salvador MD Jun 17, 2019 11:21
[2019-06-17] MEDS ORDERED: Metoclopramide 10mg/2ml Inj IVP PRN (11:30)
--- NOTE | 2019-06-17 12:05 | NUR ---
NURSE NOTES: PATIENT SEEN BY DR KAISER WITH ORDER TO START PT ON GT FEEDING.GT FEEDING STARTED, GLUCERNA 1.5 AT 10CC WITH GOAL OF 30CC/HR, TOLERATE WELL AT THIS TIME.RESIDUAL CHECKED AND NO RESIDUAL NOTED.
--- NOTE | 2019-06-17 12:11 | NUR ---
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 98.0 HR 87 RR 17 B/P 101/53 AC 16 TV 600 FIO2 35% ESR 80 BUN 31 CR 1.4 ALK PHOS 134 BNP 96892 IS: IVF D5NS@ 50ML/HR LEVOPHED GTT ERTAPENEM IV HEPARIN SUBC AMIKACIN IV PROTONIX IV ICU STATUS
--- NOTE | 2019-06-17 13:48 | Cardiology Report ---
APPROVED REPORT EXAM: Two-dimensional and M-mode echocardiogram with Doppler and color Doppler. INDICATION LV FUNCTION M-Mode DIMENSIONS IVSd0.9 (0.7-1.1cm)Left Atrium (MM)3.1 (1.6-4.0cm) LVDd3.7 (3.5-5.6cm)Aortic Root3.1 (2.0-3.7cm) PWd0.9 (0.7-1.1cm)Aortic Cusp Exc.1.6 (1.5-2.0cm) IVSs1.2 cm LVDs2.0 (2.5-4.0cm) PWs1.0 cm Technically difficult study due to pt's ventilator . Normal left ventricular chamber size, systolic function and wall motion to extent visualized. Left ventricular ejection fraction estimated to be 55-60%. No left ventricular hypertrophy . All other cardiac chamber sizes are within normal limits. Focal aortic valve sclerosis with adequate cusp excursion. Thickened mitral valve leaflets with normal excursion. Mitral annulus and aortic root calcification. Normal pulmonic valve structure. Normal tricuspid valve structure. IVC at 1.9 cm without physiologic collapse suggestive of increased RA pressure. A color flow and spectral Doppler study was performed and revealed: No aortic regurgitation.. Trace mitral regurgitation. Mitral inflow indicates normal left ventricular diastolic function. Trace tricuspid regurgitation. Tricuspid systolic velocities suggests peak right ventricular systolic pressure of 12mmHg,.
[2019-06-17] MEDS ORDERED: Amikacin 500 MG in NS 110 ML IV ONE (14:00)
--- NOTE | 2019-06-17 14:00 | NUR ---
NURSE NOTES: Patient off Levophed drip and started on Midodrine . MAP >60 , will continue to monitor.HOB elevated at 35 degree to prevent aspiration.Turned and repositioned,HOB elevated at 35 degree to prevent aspiration.Call light within easy reach.Will continue to monitor.
--- NOTE | 2019-06-17 14:05 | NUR ---
*-* NO INSURANCE INFORMATION IN THE BAR UNABLE TO SEND CLINICALS OR REVIEWS *-*
--- NOTE | 2019-06-17 14:24 | Cardiology Report ---
APPROVED REPORT EKG Measurement Heart [id number] Undetermined rhythm probable sinus chau with pac Nonspecific ST and T wave abnormality Abnormal ECG
[2019-06-17] MEDS ORDERED: D5NS 1000ml IV ONE (14:25)
[2019-06-17] MEDS ORDERED: NS 275ml ONE (14:25)
[2019-06-17] MEDS ORDERED: Tubing IV Secondary IV ONE (14:25)
--- NOTE | 2019-06-17 16:01 | Surgery Progress Note ---
Surgery Progress Note Subjective Procedure Performed right subclavian central venous catheter insertion Additional Comments Patient seen and examined bedside. Still in ICU and ill-appearing. Now off pressors. Leukocytosis improved. Labs noted and slightly improved. Exam otherwise stable. Objective Last 24 Hour Vital Signs Date Time Temp Pulse Resp B/P (MAP) Pulse Ox O2 Delivery O2 Flow Rate FiO2 06/17/19 15:27 79 20 35 06/17/19 13:55 100/53 06/17/19 13:44 74 16 90/51 (64) 100 06/17/19 13:30 76 17 99/62 (74) 100 06/17/19 13:17 78 20 35 06/17/19 13:00 74 18 95/56 (69) 100 06/17/19 12:30 73 17 105/71 (82) 100 06/17/19 12:00 74 06/17/19 12:00 Mechanical Ventilator 06/17/19 12:00 73 19 100/58 (72) 100 06/17/19 12:00 35 06/17/19 12:00 73 06/17/19 11:55 74 16 90/51 (64) 100 06/17/19 11:30 72 18 99/56 (70) 100 06/17/19 11:05 67 17 35 06/17/19 11:00 66 16 86/48 (61) 98 06/17/19 10:00 74 16 90/51 (64) 100 06/17/19 09:30 72 16 90/51 (64) 100 06/17/19 09:00 75 16 35 06/17/19 09:00 72 15 106/56 (73) 99 06/17/19 08:30 75 14 87/65 (72) 99 06/17/19 08:00 35 06/17/19 08:00 Mechanical Ventilator 06/17/19 08:00 79 16 101/63 (76) 99 06/17/19 08:00 79 06/17/19 07:30 79 16 105/59 (74) 99 06/17/19 07:00 78 19 102/71 (81) 100 06/17/19 07:00 90/51 06/17/19 07:00 78 16 35 06/17/19 06:30 80 16 116/53 (74) 99 06/17/19 06:00 81 16 97/56 (70) 99 06/17/19 05:30 81 16 95/63 (74) 99 06/17/19 05:30 81 19 35 06/17/19 05:00 83 18 101/52 (68) 100 06/17/19 04:46 85 17 85/67 (73) 99 06/17/19 04:30 88 16 88/66 (73) 100 06/17/19 04:06 86/66 06/17/19 04:00 Mechanical Ventilator 06/17/19 04:00 35 06/17/19 04:00 98.0 86 16 106/68 (81) 100 06/17/19 04:00 86 06/17/19 03:30 87 17 101/53 (69) 99 06/17/19 03:14 88 17 35 06/17/19 03:00 106/68 06/17/19 03:00 89 15 102/56 (71) 100 06/17/19 02:30 89 16 102/67 (79) 100 06/17/19 02:00 87 16 104/44 (64) 100 06/17/19 02:00 102/67 06/17/19 01:30 83 16 92/52 (65) 100 06/17/19 01:00 92/52 06/17/19 01:00 85 16 87/52 (64) 100 06/17/19 00:41 83 16 35 06/17/19 00:30 86 16 92/48 (63) 99 06/17/19 00:00 87 15 94/54 (67) 99 06/17/19 00:00 92/48 06/17/19 00:00 98.4 87 15 92/48 (63) 99 06/17/19 00:00 35 06/17/19 00:00 87 06/17/19 00:00 Mechanical Ventilator 06/16/19 23:30 88 15 94/54 (67) 100 06/16/19 23:00 95 15 101/44 (63) 99 06/16/19 23:00 84 16 35 06/16/19 23:00 109/66 06/16/19 22:30 95 18 98/74 (82) 100 06/16/19 22:00 98 21 104/61 (75) 99 06/16/19 22:00 98/74 06/16/19 21:30 98 16 35 06/16/19 21:30 98 18 109/61 (77) 100 06/16/19 21:00 99 18 111/69 (83) 99 06/16/19 21:00 119/69 06/16/19 21:00 96 119/60 06/16/19 20:30 99 17 106/77 (87) 99 06/16/19 20:00 98.6 97 16 106/66 (79) 99 06/16/19 20:00 99 06/16/19 20:00 106/66 06/16/19 20:00 35 06/16/19 20:00 Mechanical Ventilator 06/16/19 19:30 99 18 121/65 (83) 99 06/16/19 19:30 101 18 35 06/16/19 19:00 98 18 114/60 (78) 100 06/16/19 18:30 99 17 105/66 (79) 100 06/16/19 18:00 99 21 97/64 (75) 100 06/16/19 17:30 100 18 66/29 (41) 100 06/16/19 17:20 103 18 35 06/16/19 17:01 102/56 06/16/19 17:00 102 17 97/52 (67) 100 06/16/19 16:30 103 17 87/74 (78) 100 I&O Intake and Output 06/16/19 06/17/19 19:00 07:00 Intake Total 914.166 ml 1418.33 ml Output Total 850 ml 1010 ml Balance 64.166 ml 408.33 ml Intake IV Total 914.166 ml 1418.33 ml Output Urine Total 850 ml 1010 ml Dressing: dry Wound: clean Cardiovascular: RSR Respiratory: clear, decreased breath sounds Abdomen: soft, flat, non-tender, present bowel sounds Extremities: no cyanosis, other Laboratory Tests Test 06/17/19 05:45 White Blood Count 9.2 K/UL (4.8-10.8) # Red Blood Count 2.92 M/UL (4.70-6.10) L Hemoglobin 8.0 G/DL (14.2-18.0) L Hematocrit 25.2 % (42.0-52.0) L Mean Corpuscular Volume 86 FL (80-99) Mean Corpuscular Hemoglobin 27.4 PG (27.0-31.0) Mean Corpuscular Hemoglobin Concent 31.8 G/DL (32.0-36.0) L Red Cell Distribution Width 15.5 % (11.6-14.8) H Platelet Count 80 K/UL (150-450) L Mean Platelet Volume 8.3 FL (6.5-10.1) Neutrophils (%) (Auto) % (45.0-75.0) Lymphocytes (%) (Auto) % (20.0-45.0) Monocytes (%) (Auto) % (1.0-10.0) Eosinophils (%) (Auto) % (0.0-3.0) Basophils (%) (Auto) % (0.0-2.0) Differential Total Cells Counted 100 Neutrophils % (Manual) 82 % (45-75) H Lymphocytes % (Manual) 11 % (20-45) L Monocytes % (Manual) 5 % (1-10) Eosinophils % (Manual) 2 % (0-3) Basophils % (Manual) 0 % (0-2) Band Neutrophils 0 % (0-8) Nucleated Red Blood Cells 1 /100 WBC Platelet Estimate Decreased L Platelet Morphology Normal Anisocytosis 1+ Acanthocytes 1+ Erythrocyte Sedimentation Rate 80 MM/HR (0-20) H Sodium Level 141 MMOL/L (136-145) Potassium Level 4.2 MMOL/L (3.5-5.1) Chloride Level 116 MMOL/L (98-107) H Carbon Dioxide Level 15 MMOL/L (21-32) L Anion Gap 10 mmol/L (5-15) Blood Urea Nitrogen 31 mg/dL (7-18) H Creatinine 1.4 MG/DL (0.55-1.30) H Estimat Glomerular Filtration Rate 50.1 mL/min (>60) Glucose Level 107 MG/DL (74-106) H Uric Acid 5.4 MG/DL (2.6-7.2) Calcium Level 8.6 MG/DL (8.5-10.1) Phosphorus Level 3.5 MG/DL (2.5-4.9) Magnesium Level 2.3 MG/DL (1.8-2.4) Total Bilirubin 0.2 MG/DL (0.2-1.0) Aspartate Amino Transf (AST/SGOT) 47 U/L (15-37) H Alanine Aminotransferase (ALT/SGPT) 55 U/L (12-78) Alkaline Phosphatase 194 U/L (46-116) H C-Reactive Protein, Quantitative 28.4 mg/dL (0.00-0.90) H Pro-B-Type Natriuretic Peptide 62156 pg/mL (0-125) H Total Protein 5.5 G/DL (6.4-8.2) L Albumin 1.8 G/DL (3.4-5.0) L Globulin 3.7 g/dL Albumin/Globulin Ratio 0.5 (1.0-2.7) L Cortisol AM Sample 12.5 UG/DL Random Amikacin Level 4.8 ug/mL Plan Problems: (1) Severe protein-calorie malnutrition Assessment & Plan: DAILY ESTIMATED NEEDS: Needs based on Critical care, underweight 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 * Swallowing difficulty R/T respiratory status as evidenced by pt vent dep via trach, PEG dep. ENTERAL NUTRITION RECOMMENDATIONS: Nepro @45mL/hr x 22hr to provide 990mL, 1782kcal, 80g pro, 720mL free water -When Hemodynamically stable, start Nepro @ 15mL/hr for 6 hrs. -Advance as tolerated 10mL q 4-6 hrs to goal. -TF @goal meets 100% est needs. -Flush per MD/ HOB >30 degrees. ADDITIONAL RECOMMENDATIONS: * Calibrated bedscale weight for accurate CBW + weekly wt monitoring * Per SNF: Ht of 6'1", Wt 125# (05/2019) * TF recs as above when medically stable * Monitor for cont'd need of renal formula (K 5.5) * Monitor lytes and hydration status. (2) Feeding by G-tube (3) Respiratory failure, [id number] (4) Septic shock Assessment & Plan: hypotensive tachycardic labs as above line placed fluid resuscitation pressors off now improving will follow with recs thank you (5) Severe sepsis Quirino Bernard Jun 17, 2019 16:01
--- NOTE | 2019-06-17 16:02 | NUR ---
NURSE NOTES: ADLs done,patient turned and repositioned mouth care done.HOB elevated to prevent aspiration.Call light within easy reach.Will continue to monitor
[2019-06-17] MEDS: Norepinephrine Bitartrate 8 MG in D5W 500ml 492 ML IV SCH (17:17)
--- NOTE | 2019-06-17 17:33 | NUR ---
HAND-OFF: Report given to ODILIA Lopez.
--- NOTE | 2019-06-17 17:37 | NUR ---
NURSE NOTES: Patient report received from ODILIA Wiggins. Patient is responsive to pain and opens eyes to tactile stimuli, eyes measure at 2mm bilaterally and reacts sluggish, patient is connected to the ventilator by a tracheostomy with size of Portex 8 on ventilator setting of 16, TV: 600, FIO2 35%, with saturations 97% with RR of 18. Right upper subclavian TLC with fluids running at TKO, patient remains on a linnea hugger to increase core temperature, will continue to monitor.
--- NOTE | 2019-06-17 19:29 | NUR ---
HAND-OFF: Report given to ODILIA durand. .
[2019-06-17] MEDS: Dyna-Hex 2% Top Sol 2oz TOPIC SCH (20:10)
[2019-06-17] MEDS: Phenylephrine 50 MG in D5W 245 ML IV SCH (21:00)
[2019-06-17] MEDS: Ertapenem 1 GM in NS 55 ML IV SCH (21:14)
--- NOTE | 2019-06-17 21:15 | NUR ---
NURSE NOTES: Heparin 5000 u subcut. not given , due to platelet ct 80.
[2019-06-18] VITALS (24 sets, daily range): BP systolic 96–157; BP diastolic 46–87
--- NOTE | 2019-06-18 00:25 | NUR ---
NURSE NOTES: Pts urine output was decreasing . bladder scan was done with result of 951ml residual. Called Dr Trupti Viveros and left urgent message to the arch cushion skiving machine operator John- awaiting for md to call back.
--- NOTE | 2019-06-18 01:12 | NUR ---
NURSE NOTES: Re called Dr Trupti tsang.
--- NOTE | 2019-06-18 02:04 | NUR ---
NURSE NOTES: Re called Dr. Trupti Viveros
--- NOTE | 2019-06-18 02:36 | NUR ---
NURSE NOTES: Dr Trupti Viveros called back with orders to place petty cath and was done. FR 16 petty cath was inserted with 800ml [place] yellow urine coming out
--- NOTE | 2019-06-18 04:00 | NUR ---
NURSE NOTES: P 200 mattress was placed. Complete bath with bed changed done
--- NOTE | 2019-06-18 06:00 | NUR ---
NURSE NOTES: Needs frequent suctioning. vss
[2019-06-18 06:05] LABS: HEMOGLOBIN 8.2 G/DL (14.2-18.0); MEAN CORPUSCULAR VOLUME 87 FL (80-99); PLATELET COUNT 95 K/UL (150-450); RED BLOOD COUNT 2.98 M/UL (4.70-6.10); RED CELL DISTRIBUTION WIDTH 15.6 % (11.6-14.8)
--- NOTE | 2019-06-18 07:00 | NUR ---
RESPIRATORY NOTE:Received Patient on Mechanical Ventilator settings RR 16, VT 600, FIO2 35%, PEEP +0. 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 Patient is awake and confused, showing no signs of distress. Bilateral rhonchi is heard throughout both lungs, in all lung wiseman. Vent plugged into red outlet, ambubag at bedside. will cont to monitor.
[2019-06-18 07:02] LABS: ALANINE AMINOTRANSFERASE 59 U/L (12-78); ALBUMIN 1.9 G/DL (3.4-5.0); ALBUMIN/GLOBULIN RATIO 0.5 (1.0-2.7); ALKALINE PHOSPHATASE 206 U/L (46-116); ANION GAP 10 mmol/L (5-15); BILIRUBIN,TOTAL 0.2 MG/DL (0.2-1.0); BLOOD UREA NITROGEN 32 mg/dL (7-18); CALCIUM 8.8 MG/DL (8.5-10.1); CARBON DIOXIDE 17 MMOL/L (21-32); CHLORIDE 119 MMOL/L (98-107); CREATININE 1.4 MG/DL (0.55-1.30); POTASSIUM 4.2 MMOL/L (3.5-5.1); SODIUM 146 MMOL/L (136-145)
--- NOTE | 2019-06-18 07:21 | NUR ---
HAND-OFF: Report given to John HARTLEY.
[2019-06-18 07:24] LABS: PHOSPHORUS 3.5 MG/DL (2.5-4.9)
[2019-06-18 07:49] LABS: ASPARTATE AMINO TRANSFERASE 50 U/L (15-37)
--- NOTE | 2019-06-18 08:15 | NUR ---
NURSE NOTES: Patient report received from ODILIA Elam. patient responds withdrawals to light touch or light pain over the forehead, no pain using the FLACC scale noted at this time, patient remains on ventilator setting of AC 16, TV: 600, FIO2: 35%. with saturations of 100% and RR of 16. tube feeding is running at 30ml at Glucerna 1.5 thorough G-tube, Victor remains draining clear straw colored urine, skin remains intact, Optifoam applied to the sacral for protection, TLC on the right subclavian remains running d5ns at 50ml/hr. will continue to monitor.
--- NOTE | 2019-06-18 08:58 | NUR ---
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 * Swallowing difficulty R/T respiratory status as evidenced by pt vent dep via trach, PEG dep. CURRENT TF:Glucerna 1.5 @ 30ml/hr x 24 hrs ENTERAL NUTRITION RECOMMENDATIONS: Glucerna 1.5 @ 50ml/hr x 24 hrs to provide 1200ml, 1800kcal, 99g prot, 911ml free water - W/ continued HD stability, rec to increase goal rate to 50ml/hr x 24 hrs - TF @ goal meets 100% est needs. - Flush per MD/ HOB >30 degrees. IF IV SYNTHROID CHANGES TO GT SYNTHROID -> Hold TF 1 hr before and after Synthroid Med -> REC Glucerna 1.5 @ 55ml/hr x 22 hrs to provide 1210ml, 1815kcal, 100g prot, 918ml free water ADDITIONAL RECOMMENDATIONS: * Calibrated bedscale weight for accurate CBW + weekly wt monitoring * Per SNF: Ht of 6'1", Wt 125# (05/2019) * Monitor HD stability: now off pressors * Monitor lytes closely, replete as needed (K elev upon adm, monitor closely, need for renal TF formula) . .
[2019-06-18] MEDS: Heparin 5000 units/ml inj SUBQ SCH ×2 (09:00→21:00)
[2019-06-18] MEDS: Pantoprazole Inj IVP SCH ×2 (09:23→20:40)
--- NOTE | 2019-06-18 09:26 | General Progress Note ---
Assessment/Plan Problem List: (1) Diabetes ICD Codes: E11.9 - Type 2 diabetes mellitus without complications SNOMED: 63527475 (2) HTN (hypertension) ICD Codes: I10 - Essential (primary) hypertension SNOMED: 06391036 (3) CVA (cerebral vascular accident) ICD Codes: I63.9 - Cerebral infarction, unspecified SNOMED: 593672675 (4) Severe protein-calorie malnutrition ICD Codes: E43 - Unspecified severe protein-calorie malnutrition SNOMED: 405496730 (5) Feeding by G-tube ICD Codes: Z93.1 - Gastrostomy status SNOMED: 826892075, 230099666 (6) Respiratory failure, [id number]-zllzpng ICD Codes: J96.20 - Respiratory failure, stice-yp-bliloav SNOMED: 01255531 (7) Anemia ICD Codes: D64.9 - Anemia, unspecified SNOMED: 216206868 (8) Chronic respiratory failure ICD Codes: J96.10 - Chronic respiratory failure, unspecified whether with hypoxia or hypercapnia SNOMED: 97775700 (9) Septic shock ICD Codes: A41.9 - Sepsis, unspecified organism; R65.21 - Severe sepsis with septic shock SNOMED: 50228261 (10) Alzheimer's dementia ICD Codes: G30.9 - Alzheimer's disease, unspecified SNOMED: 50719602 (11) Severe sepsis ICD Codes: A41.9 - Sepsis, unspecified organism; R65.20 - Severe sepsis without septic shock SNOMED: 01029924 (12) Hypothyroidism ICD Codes: E03.9 - Hypothyroidism, unspecified SNOMED: 19022364 Status: unchanged Assessment/Plan: vent abx wean pressor cbc bmp am ltach eval Subjective Constitutional: Reports: weakness Allergies: Coded Allergies: NO KNOWN DRUG ALLERGIES (Verified Allergy, Unknown, 09/11/16) All Systems: reviewed and negative except above Subjective trach vent altered Objective Last 24 Hour Vital Signs Date Time Temp Pulse Resp B/P (MAP) Pulse Ox O2 Delivery O2 Flow Rate FiO2 06/18/19 09:06 92 15 35 06/18/19 09:00 93 16 105/57 (73) 100 06/18/19 08:37 94 06/18/19 08:00 95 16 102/77 (85) 100 06/18/19 08:00 35 06/18/19 08:00 Mechanical Ventilator 06/18/19 07:00 98.4 85 15 98/46 (63) 100 06/18/19 06:46 86 14 35 06/18/19 06:00 85 16 96/54 (68) 97 06/18/19 05:30 92 18 35 06/18/19 05:00 94 16 102/52 (69) 97 06/18/19 04:00 Mechanical Ventilator 06/18/19 04:00 35 06/18/19 04:00 93 06/18/19 04:00 99.4 93 16 105/60 (75) 97 06/18/19 03:09 96 18 35 06/18/19 03:00 93 16 104/54 (71) 97 06/18/19 02:00 96 18 103/57 (72) 99 06/18/19 01:00 95 18 99/84 (89) 99 06/18/19 00:35 97 18 35 06/18/19 00:00 92 06/18/19 00:00 Mechanical Ventilator 06/18/19 00:00 98.6 95 16 100/52 (68) 99 06/18/19 00:00 35 06/17/19 23:00 93 16 99/52 (68) 99 06/17/19 22:35 94 18 35 06/17/19 22:00 96 17 96/53 (67) 99 06/17/19 21:10 96 16 35 06/17/19 21:00 96 17 120/55 (76) 99 06/17/19 21:00 96 95/57 06/17/19 20:00 100 06/17/19 20:00 35 06/17/19 20:00 Mechanical Ventilator 06/17/19 20:00 98.0 95 19 97/55 (69) 100 06/17/19 19:04 88 21 35 06/17/19 18:00 90 17 95/57 (70) 99 06/17/19 17:17 95/56 06/17/19 17:02 89 20 35 06/17/19 17:00 83 11 95/53 (67) 98 06/17/19 16:00 96.6 83 22 76/39 (51) 99 06/17/19 16:00 84 06/17/19 16:00 Mechanical Ventilator 10/8/19 16:00 35 06/17/19 15:27 79 20 35 06/17/19 15:00 75 19 100/43 (62) 100 06/17/19 14:30 78 18 105/59 (74) 100 06/17/19 14:00 77 18 79/62 (68) 100 06/17/19 13:55 100/53 06/17/19 13:44 74 16 90/51 (64) 100 06/17/19 13:30 76 17 99/62 (74) 100 06/17/19 13:17 78 20 35 06/17/19 13:00 74 18 95/56 (69) 100 06/17/19 12:30 73 17 105/71 (82) 100 06/17/19 12:00 74 06/17/19 12:00 Mechanical Ventilator 06/17/19 12:00 92.6 73 19 100/58 (72) 100 06/17/19 12:00 35 06/17/19 12:00 73 06/17/19 11:55 74 16 90/51 (64) 100 06/17/19 11:30 72 18 99/56 (70) 100 06/17/19 11:05 67 17 35 06/17/19 11:00 66 16 86/48 (61) 98 06/17/19 10:00 74 16 90/51 (64) 100 06/17/19 09:30 72 16 90/51 (64) 100 Intake and Output 06/17/19 06/18/19 19:00 07:00 Intake Total 596.25 ml 980 ml Output Total 400 ml 1350 ml Balance 196.25 ml -370 ml Intake Free Water 60 ml 90 ml IV Total 426.25 ml 500 ml Tube Feeding 110 ml 390 ml Output Urine Total 400 ml 1350 ml # Bowel Movements 1 2 Laboratory Tests 06/18/19 05:00: White Blood Count 9.0, Red Blood Count 2.98L, Hemoglobin 8.2L, Hematocrit 26.0L , Mean Corpuscular Volume 87, Mean Corpuscular Hemoglobin 27.5, Mean Corpuscular Hemoglobin Concent 31.6L, Red Cell Distribution Width 15.6H, Platelet Count 95L, Mean Platelet Volume 8.1, Neutrophils (%) (Auto) , Lymphocytes (%) (Auto) , Monocytes (%) (Auto) , Eosinophils (%) (Auto) , Basophils (%) (Auto) , Differential Total Cells Counted 100, Neutrophils % ( Manual) 78H, Lymphocytes % (Manual) 11L, Monocytes % (Manual) 7, Eosinophils % ( Manual) 0, Basophils % (Manual) 0, Band Neutrophils 4, Platelet Estimate DecreasedL, Platelet Morphology Normal, Anisocytosis 1+, Sodium Level 146H, Potassium Level 4.2, Chloride Level 119H, Carbon Dioxide Level 17L, Anion Gap 10 , Blood Urea Nitrogen 32H, Creatinine 1.4H, Estimat Glomerular Filtration Rate 50.1, Glucose Level 82, Calcium Level 8.8, Phosphorus Level 3.5, Magnesium Level 2.4, Total Bilirubin 0.2, Aspartate Amino Transf (AST/SGOT) 50H, Alanine Aminotransferase (ALT/SGPT) 59, Alkaline Phosphatase 206H, C-Reactive Protein, Quantitative 15.2H, Pro-B-Type Natriuretic Peptide 87534K, Total Protein 5.7L, Albumin 1.9L, Globulin 3.8, Albumin/Globulin Ratio 0.5L, Random Amikacin Level 10.2 Height (Feet): 5 Height (Inches): 8.00 Weight (Pounds): 150 General Appearance: lethargic EENT: normal ENT inspection Neck: normal alignment Cardiovascular: normal peripheral pulses, normal rate, regular rhythm Respiratory/Chest: chest wall non-tender, lungs clear, normal breath sounds Abdomen: normal bowel sounds, non tender, soft Extremities: normal inspection Edema: no edema noted Arm (L), no edema noted Arm (R), no edema noted Leg (L), no edema noted Leg (R), no edema noted Pedal (L), no edema noted Pedal (R), no edema noted Generalized Neurologic: motor weakness Skin: normal pigmentation, warm/dry Gato Viveros DO Jun 18, 2019 09:26
--- NOTE | 2019-06-18 10:04 | NUR ---
NURSE NOTES: Dr. Nath called to notify platelet level of 95 with hgb of 8.2, orders to hold this morning dose of heparin 5000units subq. there is no noted signs of bleeding on g-tube, Victor or tracheostomy.
--- NOTE | 2019-06-18 10:35 | Pulmonolgy Critical Care Note ---
Critical Care - Asmt/Plan Problems: (1) Septic shock (2) Pyelonephritis (3) Chronic respiratory failure (4) Alzheimer's dementia (5) Severe erosive esophagitis (6) Feeding by G-tube (7) Diabetes (8) CVA (cerebral vascular accident) Respiratory: monitor respiratory rate, adjust FIO2, CXR Cardiac: continue to monitor HR/BP Renal: F/U I&O, keep IV fluid, check electrolytes Infectious Disease: check cultures, continue antibiotics Gastrointestinal: continue feedings/current rate Endocrine: monitor blood sugar Hematologic: monitor H/H, transfuse if hgb<8.5 Neurologic: PRN Ativan, keep patient comfortable Affect: PRN ativan Prophylaxis: Protonix Disposition: keep in ICU Notes Reviewed: clinical writer, 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 with: nurses, consultants, major case detectivemanager transportation - Objective Last 24 Hour Vital Signs Date Time Temp Pulse Resp B/P (MAP) Pulse Ox O2 Delivery O2 Flow Rate FiO2 06/18/19 10:00 95 16 118/59 (78) 100 06/18/19 09:06 92 15 35 06/18/19 09:00 93 16 105/57 (73) 100 06/18/19 08:37 94 06/18/19 08:00 95 16 102/77 (85) 100 06/18/19 08:00 35 06/18/19 08:00 Mechanical Ventilator 06/18/19 07:00 98.4 85 15 98/46 (63) 100 06/18/19 06:46 86 14 35 06/18/19 06:00 85 16 96/54 (68) 97 06/18/19 05:30 92 18 35 06/18/19 05:00 94 16 102/52 (69) 97 06/18/19 04:00 Mechanical Ventilator 06/18/19 04:00 35 06/18/19 04:00 93 06/18/19 04:00 99.4 93 16 105/60 (75) 97 06/18/19 03:09 96 18 35 06/18/19 03:00 93 16 104/54 (71) 97 06/18/19 02:00 96 18 103/57 (72) 99 06/18/19 01:00 95 18 99/84 (89) 99 06/18/19 00:35 97 18 35 06/18/19 00:00 92 06/18/19 00:00 Mechanical Ventilator 06/18/19 00:00 98.6 95 16 100/52 (68) 99 06/18/19 00:00 35 06/17/19 23:00 93 16 99/52 (68) 99 06/17/19 22:35 94 18 35 06/17/19 22:00 96 17 96/53 (67) 99 06/17/19 21:10 96 16 35 06/17/19 21:00 96 17 120/55 (76) 99 06/17/19 21:00 96 95/57 06/17/19 20:00 100 06/17/19 20:00 35 06/17/19 20:00 Mechanical Ventilator 06/17/19 20:00 98.0 95 19 97/55 (69) 100 06/17/19 19:04 88 21 35 06/17/19 18:00 90 17 95/57 (70) 99 06/17/19 17:17 95/56 06/17/19 17:02 89 20 35 06/17/19 17:00 83 11 95/53 (67) 98 06/17/19 16:00 96.6 83 22 76/39 (51) 99 06/17/19 16:00 84 06/17/19 16:00 Mechanical Ventilator 06/17/19 16:00 35 06/17/19 15:27 79 20 35 06/17/19 15:00 75 19 100/43 (62) 100 06/17/19 14:30 78 18 105/59 (74) 100 06/17/19 14:00 77 18 79/62 (68) 100 06/17/19 13:55 100/53 06/17/19 13:44 74 16 90/51 (64) 100 06/17/19 13:30 76 17 99/62 (74) 100 06/17/19 13:17 78 20 35 06/17/19 13:00 74 18 95/56 (69) 100 06/17/19 12:30 73 17 105/71 (82) 100 06/17/19 12:00 74 06/17/19 12:00 Mechanical Ventilator 06/17/19 12:00 92.6 73 19 100/58 (72) 100 06/17/19 12:00 35 06/17/19 12:00 73 06/17/19 11:55 74 16 90/51 (64) 100 06/17/19 11:30 72 18 99/56 (70) 100 06/17/19 11:05 67 17 35 06/17/19 11:00 66 16 86/48 (61) 98 Status: awake, sedated, somnolent Condition: improving HEENT: atraumatic Neck: full ROM Lungs: chest wall tender Heart: HR/BP stable Abdomen: soft, non-tender, feeding tube Extremities: edema Critical Care - Subjective ROS Limited/Unobtainable: Yes Condition: critical EKG Rhythm: Sinus Rhythm FI02: 35 Vent Support Breath Rate: 16 Vent Support Mode: AC Vent Tidal Volume: 600 Sputum Amount: Small PEEP: 0.0 PIP: 28 Tube Feeding Amount: 30 I&O: Intake and Output 06/17/19 06/18/19 19:00 07:00 Intake Total 596.25 ml 980 ml Output Total 400 ml 1350 ml Balance 196.25 ml -370 ml Intake Free Water 60 ml 90 ml IV Total 426.25 ml 500 ml Tube Feeding 110 ml 390 ml Output Urine Total 400 ml 1350 ml # Bowel Movements 1 2 CXR: no change Labs: Laboratory Tests Test 06/18/19 05:00 White Blood Count 9.0 K/UL (4.8-10.8) Red Blood Count 2.98 M/UL (4.70-6.10) L Hemoglobin 8.2 G/DL (14.2-18.0) L Hematocrit 26.0 % (42.0-52.0) L Mean Corpuscular Volume 87 FL (80-99) Mean Corpuscular Hemoglobin 27.5 PG (27.0-31.0) Mean Corpuscular Hemoglobin Concent 31.6 G/DL (32.0-36.0) L Red Cell Distribution Width 15.6 % (11.6-14.8) H Platelet Count 95 K/UL (150-450) L Mean Platelet Volume 8.1 FL (6.5-10.1) Neutrophils (%) (Auto) % (45.0-75.0) Lymphocytes (%) (Auto) % (20.0-45.0) Monocytes (%) (Auto) % (1.0-10.0) Eosinophils (%) (Auto) % (0.0-3.0) Basophils (%) (Auto) % (0.0-2.0) Differential Total Cells Counted 100 Neutrophils % (Manual) 78 % (45-75) H Lymphocytes % (Manual) 11 % (20-45) L Monocytes % (Manual) 7 % (1-10) Eosinophils % (Manual) 0 % (0-3) Basophils % (Manual) 0 % (0-2) Band Neutrophils 4 % (0-8) Platelet Estimate Decreased L Platelet Morphology Normal Anisocytosis 1+ Sodium Level 146 MMOL/L (136-145) H Potassium Level 4.2 MMOL/L (3.5-5.1) Chloride Level 119 MMOL/L (98-107) H Carbon Dioxide Level 17 MMOL/L (21-32) L Anion Gap 10 mmol/L (5-15) Blood Urea Nitrogen 32 mg/dL (7-18) H Creatinine 1.4 MG/DL (0.55-1.30) H Estimat Glomerular Filtration Rate 50.1 mL/min (>60) Glucose Level 82 MG/DL (74-106) Calcium Level 8.8 MG/DL (8.5-10.1) Phosphorus Level 3.5 MG/DL (2.5-4.9) Magnesium Level 2.4 MG/DL (1.8-2.4) Total Bilirubin 0.2 MG/DL (0.2-1.0) Aspartate Amino Transf (AST/SGOT) 50 U/L (15-37) H Alanine Aminotransferase (ALT/SGPT) 59 U/L (12-78) Alkaline Phosphatase 206 U/L (46-116) H C-Reactive Protein, Quantitative 15.2 mg/dL (0.00-0.90) H Pro-B-Type Natriuretic Peptide 74446 pg/mL (0-125) H Total Protein 5.7 G/DL (6.4-8.2) L Albumin 1.9 G/DL (3.4-5.0) L Globulin 3.8 g/dL Albumin/Globulin Ratio 0.5 (1.0-2.7) L Random Amikacin Level 10.2 ug/mL Huma Keating MD Jun 18, 2019 10:35
--- NOTE | 2019-06-18 10:45 | NUR ---
NURSE NOTES: Dr. Keating at the bedside assessing patient, made aware of patient responding to tactile stimuli and withdrawals to light pain, patient remain on tube feeding at 30ml/hr with no residual noted, will continue plan of care.
--- NOTE | 2019-06-18 11:52 | Infectious Diseases Prog Note ---
Assessment/Plan Assessment/Plan Mr. Huffman is a 68 yo male with PMHx of of chronic resp failure trach/vent dependant, diffuse ulcerative esophagitis, peptic esophageal stricture, asthma, GERD, Dm2, CVA/TIA w/ hemiplegia, functional quadriplegia, CAD, CHF, ESBL UTI , GIB s/p multiple EGDs in the past, schizoaffective disorder, Dementia, hypothyroidism, malnutrition, non verbal, infected obstuctive ureterolithiasis/ w abscess s/p L NT palced 12/2018, encephalopathy, Alzheimer's disease, multiple admissions, subacute facility resident who was sent to the for hypotension and bradycardia. Septic Shock- likely 2ry to UTI and PNA off perssors now Hx of resistant infections Urine Cx 06/14/19 - >100k ESBL P, stuarti, ESBL P mirabilis (both S Ertapenem , ZOsyn) Blood Cx - NTD CXR show probable pna sp cx p Leukocytosis; SP Hypothermia; SP Chronic resp failure trach/vent dependant asthma Dm2 CVA/TIA w/ hemiplegia Functional quadriplegia CAD CHF GIB s/p multiple EGDs in the past Schizoaffective disorder Dementia Hypothyroidism Non verbal Alzheimer's disease PLAN: - Continue Amikacin #4 and Ertapenem #4 and IV Vancomycin #4 pending sp Cx -06/17 SP PO Vancomycin #3 -06/16 SP Flagyl #2 - monitor CBC and Temps - f/u sp cx Thank you for this consult. [facility] will continue to follow the patient with you during this hospitalization. Subjective Allergies: Coded Allergies: NO KNOWN DRUG ALLERGIES (Verified Allergy, Unknown, 09/11/16) Subjective afebrile no leukocytosis Bcx NTD off pressors now sp cx p Objective Vital Signs Last 24 Hour Vital Signs Date Time Temp Pulse Resp B/P (MAP) Pulse Ox O2 Delivery O2 Flow Rate FiO2 06/18/19 11:07 88 16 35 06/18/19 10:00 95 16 118/59 (78) 100 06/18/19 09:06 92 15 35 06/18/19 09:00 93 16 105/57 (73) 100 06/18/19 08:37 94 06/18/19 08:00 95 16 102/77 (85) 100 06/18/19 08:00 35 06/18/19 08:00 Mechanical Ventilator 06/18/19 07:00 98.4 85 15 98/46 (63) 100 06/18/19 06:46 86 14 35 06/18/19 06:00 85 16 96/54 (68) 97 06/18/19 05:30 92 18 35 06/18/19 05:00 94 16 102/52 (69) 97 06/18/19 04:00 Mechanical Ventilator 06/18/19 04:00 35 06/18/19 04:00 93 06/18/19 04:00 99.4 93 16 105/60 (75) 97 06/18/19 03:09 96 18 35 06/18/19 03:00 93 16 104/54 (71) 97 06/18/19 02:00 96 18 103/57 (72) 99 06/18/19 01:00 95 18 99/84 (89) 99 06/18/19 00:35 97 18 35 06/18/19 00:00 92 06/18/19 00:00 Mechanical Ventilator 06/18/19 00:00 98.6 95 16 100/52 (68) 99 06/18/19 00:00 35 06/17/19 23:00 93 16 99/52 (68) 99 06/17/19 22:35 94 18 35 06/17/19 22:00 96 17 96/53 (67) 99 06/17/19 21:10 96 16 35 06/17/19 21:00 96 17 120/55 (76) 99 06/17/19 21:00 96 95/57 06/17/19 20:00 100 06/17/19 20:00 35 06/17/19 20:00 Mechanical Ventilator 06/17/19 20:00 98.0 95 19 97/55 (69) 100 06/17/19 19:04 88 21 35 06/17/19 18:00 90 17 95/57 (70) 99 06/17/19 17:17 95/56 06/17/19 17:02 89 20 35 06/17/19 17:00 83 11 95/53 (67) 98 06/17/19 16:00 96.6 83 22 76/39 (51) 99 06/17/19 16:00 84 06/17/19 16:00 Mechanical Ventilator 06/17/19 16:00 35 06/17/19 15:27 79 20 35 06/17/19 15:00 75 19 100/43 (62) 100 06/17/19 14:30 78 18 105/59 (74) 100 06/17/19 14:00 77 18 79/62 (68) 100 06/17/19 13:55 100/53 06/17/19 13:44 74 16 90/51 (64) 100 06/17/19 13:30 76 17 99/62 (74) 100 06/17/19 13:17 78 20 35 06/17/19 13:00 74 18 95/56 (69) 100 06/17/19 12:30 73 17 105/71 (82) 100 06/17/19 12:00 74 06/17/19 12:00 Mechanical Ventilator 06/17/19 12:00 92.6 73 19 100/58 (72) 100 06/17/19 12:00 35 06/17/19 12:00 73 06/17/19 11:55 74 16 90/51 (64) 100 Height (Feet): 5 Height (Inches): 8.00 Weight (Pounds): 150 Objective Gen: On vent in IVU HEENT: NCAT, MMM, PERRL, No Oral lesion, no scleral icterus NECK: supple, No LAD, No JVD, Trached LUNGS: Coarse B/L, No W/C CARDS: RRR, S1, S2, No M/R/G, ABD: Soft, NT, ND, No R/G, + BS, No HSM, No Masses, PEG : Deferred Ext: C/C/E, Pulses 2+ B/L (DP, Rad): NEURO: A/O x 0, no following SKIN: Warm/dry, No rashes Laboratory Tests Test 06/18/19 05:00 White Blood Count 9.0 K/UL (4.8-10.8) Red Blood Count 2.98 M/UL (4.70-6.10) L Hemoglobin 8.2 G/DL (14.2-18.0) L Hematocrit 26.0 % (42.0-52.0) L Mean Corpuscular Volume 87 FL (80-99) Mean Corpuscular Hemoglobin 27.5 PG (27.0-31.0) Mean Corpuscular Hemoglobin Concent 31.6 G/DL (32.0-36.0) L Red Cell Distribution Width 15.6 % (11.6-14.8) H Platelet Count 95 K/UL (150-450) L Mean Platelet Volume 8.1 FL (6.5-10.1) Neutrophils (%) (Auto) % (45.0-75.0) Lymphocytes (%) (Auto) % (20.0-45.0) Monocytes (%) (Auto) % (1.0-10.0) Eosinophils (%) (Auto) % (0.0-3.0) Basophils (%) (Auto) % (0.0-2.0) Differential Total Cells Counted 100 Neutrophils % (Manual) 78 % (45-75) H Lymphocytes % (Manual) 11 % (20-45) L Monocytes % (Manual) 7 % (1-10) Eosinophils % (Manual) 0 % (0-3) Basophils % (Manual) 0 % (0-2) Band Neutrophils 4 % (0-8) Platelet Estimate Decreased L Platelet Morphology Normal Anisocytosis 1+ Sodium Level 146 MMOL/L (136-145) H Potassium Level 4.2 MMOL/L (3.5-5.1) Chloride Level 119 MMOL/L (98-107) H Carbon Dioxide Level 17 MMOL/L (21-32) L Anion Gap 10 mmol/L (5-15) Blood Urea Nitrogen 32 mg/dL (7-18) H Creatinine 1.4 MG/DL (0.55-1.30) H Estimat Glomerular Filtration Rate 50.1 mL/min (>60) Glucose Level 82 MG/DL (74-106) Calcium Level 8.8 MG/DL (8.5-10.1) Phosphorus Level 3.5 MG/DL (2.5-4.9) Magnesium Level 2.4 MG/DL (1.8-2.4) Total Bilirubin 0.2 MG/DL (0.2-1.0) Aspartate Amino Transf (AST/SGOT) 50 U/L (15-37) H Alanine Aminotransferase (ALT/SGPT) 59 U/L (12-78) Alkaline Phosphatase 206 U/L (46-116) H C-Reactive Protein, Quantitative 15.2 mg/dL (0.00-0.90) H Pro-B-Type Natriuretic Peptide 52897 pg/mL (0-125) H Total Protein 5.7 G/DL (6.4-8.2) L Albumin 1.9 G/DL (3.4-5.0) L Globulin 3.8 g/dL Albumin/Globulin Ratio 0.5 (1.0-2.7) L Random Amikacin Level 10.2 ug/mL Current Medications Medications (Trade) Dose Ordered Sig/Wanda Route PRN Reason Start Time Stop Time Status Last Admin Dose Admin Acetaminophen (Tylenol) 650 mg Q4H PRN GT fever (temp>100.5F) 06/14/19 14:30 07/14/19 14:29 Albuterol/ Ipratropium (Albuterol/ Ipratropium) 3 ml Q4H PRN HHN Shortness of Breath 06/14/19 14:30 06/19/19 14:29 Amikacin Protocol (Amikacin pharmacy to dose) 1 ea DAILY PRN MISC PER RX PROTOCOL 06/14/19 16:45 07/14/19 16:44 Chlorhexidine Gluconate (Jasmin-Hex 2%) 1 applic DAILY@2000 TOPIC 06/15/19 20:00 07/15/19 19:59 06/17/19 20:10 Dextrose/Sodium Chloride 1,000 ml @ 50 mls/hr Q20H IV 06/17/19 11:15 07/17/19 11:14 06/17/19 21:31 Ertapenem 1 gm/ Sodium Chloride 55 ml @ 110 mls/hr Q24H IV 06/14/19 21:00 06/21/19 20:59 06/17/19 21:14 Heparin Sodium (Porcine) (Heparin 5000 units/ml) 5,000 units EVERY 12 HOURS SUBQ 06/14/19 21:00 07/14/19 20:59 06/16/19 20:58 Levothyroxine Sodium (Synthroid) 50 mcg DAILY IV 06/16/19 09:00 07/16/19 08:59 06/18/19 09:23 Lorazepam (Ativan 2mg/ml 1ml) 2 mg Q2H PRN IV For Anxiety 06/14/19 14:30 06/21/19 14:29 Metoclopramide HCl (Reglan) 10 mg Q8H PRN IVP Nausea & Vomiting 06/17/19 11:30 07/17/19 11:29 Midodrine (Pro-Amatine) 2.5 mg THREE TIMES A DAY GT 06/17/19 13:00 07/17/19 12:59 06/18/19 09:23 Norepinephrine Bitartrate 8 mg/ Dextrose 500 ml @ 0 mls/hr Q24H IV 06/15/19 18:00 07/15/19 17:59 06/16/19 17:01 Ondansetron HCl (Zofran) 4 mg Q6H PRN IVP Nausea & Vomiting 06/14/19 14:30 07/14/19 14:29 06/15/19 02:37 Pantoprazole (Protonix) 40 mg EVERY 12 HOURS IVP 06/17/19 21:00 07/17/19 20:59 06/18/19 09:23 Phenylephrine HCl 50 mg/Dextrose 250 ml @ 0 mls/hr Q24H IV 06/14/19 21:00 07/14/19 20:59 06/15/19 20:36 Polyethylene Glycol (Miralax) 17 gm DAILYPRN PRN GT Constipation 06/14/19 14:30 07/14/19 14:29 Lisy Lai M.D. Jun 18, 2019 11:52
--- NOTE | 2019-06-18 12:21 | NUR ---
NURSE NOTES: patient responds withdrawals to light touch or light pain over the forehead, No pain noted at this time with pain assessed using the FLACC scale, remains on AC 16, TV 600, FIO2 35% with saturations of 99-100% and rr of 16-17 heart rate remains at 85-96 in sinus rhythm and bp of 100-59, tube feeding remains running at 30ml at Glucerna 1.5 through G-tube, skin remains intact and TLC on the right subclavian remains running d5ns at 50ml/hr.
--- NOTE | 2019-06-18 12:57 | NUR ---
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 98.7 HR 93 RR 18 B/P 100/59 AC 16 TV 600 FIO2 35% PLT 95 NA 146 BUN 32 CR. 1.4 BNP [id number] IS: VANCO IV IVF D5NS@ 50ML/HR ERTAPENEM IV HEPARIN SUBC ALB HHN ICU STATUS
--- NOTE | 2019-06-18 13:02 | Nephrology Progress Note ---
Assessment/Plan Problem List: (1) Septic shock (2) Hypothyroidism (3) Upper GI bleed (4) Respiratory failure, [id number] (5) Anemia Assessment Sepsis Shock on pressors GI Bleed Low Na and high K UTI HypoThyroidism Tracheostomy dependence Respiratory failure, klewt-sj-nrbmffw Alzheimer's Feeding by G-tube Plan off pressors- On Midodrine On GT feeding On Reglan fluid challenge as needed adjust IV fluids transfuse as needed Monitor lytes and renal parametrs urine studies per orders Subjective ROS Limited/Unobtainable: Yes Objective Objective Last 24 Hour Vital Signs Date Time Temp Pulse Resp B/P (MAP) Pulse Ox O2 Delivery O2 Flow Rate FiO2 06/18/19 12:00 93 06/18/19 12:00 98.7 93 18 100/59 (73) 99 06/18/19 12:00 35 06/18/19 11:07 88 16 35 06/18/19 11:00 93 18 116/59 (78) 99 06/18/19 10:00 95 16 118/59 (78) 100 06/18/19 09:06 92 15 35 06/18/19 09:00 93 16 105/57 (73) 100 06/18/19 08:37 94 06/18/19 08:00 95 16 102/77 (85) 100 06/18/19 08:00 35 06/18/19 08:00 Mechanical Ventilator 06/18/19 07:00 98.4 85 15 98/46 (63) 100 06/18/19 06:46 86 14 35 06/18/19 06:00 85 16 96/54 (68) 97 06/18/19 05:30 92 18 35 06/18/19 05:00 94 16 102/52 (69) 97 06/18/19 04:00 Mechanical Ventilator 06/18/19 04:00 35 06/18/19 04:00 93 06/18/19 04:00 99.4 93 16 105/60 (75) 97 06/18/19 03:09 96 18 35 06/18/19 03:00 93 16 104/54 (71) 97 06/18/19 02:00 96 18 103/57 (72) 99 06/18/19 01:00 95 18 99/84 (89) 99 06/18/19 00:35 97 18 35 06/18/19 00:00 92 10/9/19 00:00 Mechanical Ventilator 06/18/19 00:00 98.6 95 16 100/52 (68) 99 06/18/19 00:00 35 06/17/19 23:00 93 16 99/52 (68) 99 06/17/19 22:35 94 18 35 06/17/19 22:00 96 17 96/53 (67) 99 06/17/19 21:10 96 16 35 06/17/19 21:00 96 17 120/55 (76) 99 06/17/19 21:00 96 95/57 06/17/19 20:00 100 06/17/19 20:00 35 06/17/19 20:00 Mechanical Ventilator 06/17/19 20:00 98.0 95 19 97/55 (69) 100 06/17/19 19:04 88 21 35 06/17/19 18:00 90 17 95/57 (70) 99 06/17/19 17:17 95/56 06/17/19 17:02 89 20 35 06/17/19 17:00 83 11 95/53 (67) 98 06/17/19 16:00 96.6 83 22 76/39 (51) 99 06/17/19 16:00 84 06/17/19 16:00 Mechanical Ventilator 06/17/19 16:00 35 06/17/19 15:27 79 20 35 06/17/19 15:00 75 19 100/43 (62) 100 06/17/19 14:30 78 18 105/59 (74) 100 06/17/19 14:00 77 18 79/62 (68) 100 06/17/19 13:55 100/53 06/17/19 13:44 74 16 90/51 (64) 100 06/17/19 13:30 76 17 99/62 (74) 100 06/17/19 13:17 78 20 35 06/17/19 13:00 74 18 95/56 (69) 100 Intake and Output 06/17/19 06/18/19 18:59 06:59 Intake Total 700.00 ml 900 ml Output Total 400 ml 1260 ml Balance 300.00 ml -360 ml Intake Free Water 60 ml 90 ml IV Total 530.00 ml 450 ml Tube Feeding 110 ml 360 ml Output Urine Total 400 ml 1260 ml # Bowel Movements 1 2 Laboratory Tests 10/9/19 05:00: White Blood Count 9.0, Red Blood Count 2.98L, Hemoglobin 8.2L, Hematocrit 26.0L , Mean Corpuscular Volume 87, Mean Corpuscular Hemoglobin 27.5, Mean Corpuscular Hemoglobin Concent 31.6L, Red Cell Distribution Width 15.6H, Platelet Count 95L, Mean Platelet Volume 8.1, Neutrophils (%) (Auto) , Lymphocytes (%) (Auto) , Monocytes (%) (Auto) , Eosinophils (%) (Auto) , Basophils (%) (Auto) , Differential Total Cells Counted 100, Neutrophils % ( Manual) 78H, Lymphocytes % (Manual) 11L, Monocytes % (Manual) 7, Eosinophils % ( Manual) 0, Basophils % (Manual) 0, Band Neutrophils 4, Platelet Estimate DecreasedL, Platelet Morphology Normal, Anisocytosis 1+, Sodium Level 146H, Potassium Level 4.2, Chloride Level 119H, Carbon Dioxide Level 17L, Anion Gap 10 , Blood Urea Nitrogen 32H, Creatinine 1.4H, Estimat Glomerular Filtration Rate 50.1, Glucose Level 82, Calcium Level 8.8, Phosphorus Level 3.5, Magnesium Level 2.4, Total Bilirubin 0.2, Aspartate Amino Transf (AST/SGOT) 50H, Alanine Aminotransferase (ALT/SGPT) 59, Alkaline Phosphatase 206H, C-Reactive Protein, Quantitative 15.2H, Pro-B-Type Natriuretic Peptide 35309U, Total Protein 5.7L, Albumin 1.9L, Globulin 3.8, Albumin/Globulin Ratio 0.5L, Random Amikacin Level 10.2 Height (Feet): 5 Height (Inches): 8.00 Weight (Pounds): 150 General Appearance: no apparent distress EENT: other - trach vent Cardiovascular: tachycardia Respiratory/Chest: decreased breath sounds Abdomen: distended Sav Salvador MD Jun 18, 2019 13:02
[2019-06-18] MEDS ORDERED: Vancomycin 1.25 GM in NS 275 ML IVPB ONE (14:00)
[2019-06-18] MEDS ORDERED: Vancomycin 1.25gm/NS Premix 275 ML IVPB ONE (14:00)
--- NOTE | 2019-06-18 14:05 | NUR ---
NURSE NOTES: Tube feeding increase to 40m/hr, less than 5 ml of residual noted and flushed with 30ml to clear G-tube, D5W started at 50ml/hr due to the sodium of 146,
--- NOTE | 2019-06-18 16:35 | NUR ---
INSURANCE NO INSURANCE INFORMATION IN BAR UNABLE TO SEND CLINICALS OR REVIEWS
--- NOTE | 2019-06-18 17:20 | NUR ---
NURSE NOTES: Dr. Keating cleared to have patient transferred to [facility], consultation also creaked patient to be transferred to [facility] since patient remains stable after 24hrs off of vasopressors.will place order for transfer,
--- NOTE | 2019-06-18 17:40 | NUR ---
NURSE NOTES: Bowel movement cleaned with stool consistent soft and color of a dark green, moderate in size with no foul odor! Patient skin remains intact with blanchable redness at the sacral region, sacral region is protected with Optifoam. patient is tolerating tube feeding of Glucerna 1.5 at rate of 40ml/hr. Thick secretions suctioned through the trach and mouth, Victor remains draining clear yellow urine, remains on ventilator setting of ac 16, Tv: 600, Fio2 at 35% with saturations of 99-100% wit RR of 16. heart rate remains at 85-96 in sinus rhythm with occasional PVC. will continue to monitor.
[2019-06-18] MEDS: Norepinephrine Bitartrate 8 MG in D5W 500ml 492 ML IV SCH (18:00)
[2019-06-18] MEDS: Metoclopramide 10mg/2ml Inj IVP SCH (18:55)
--- NOTE | 2019-06-18 19:05 | NUR ---
RESPIRATORY NOTE: Received pt on AC 16, 600VT, 35%, no PEEP. Pt is trach-dependent w/ a cuffed, Portex 8 tube. Pt is asleep/flateffect/responds to stimuli. B/S nora. rhonchi, sxn small to moderate amounts of thick, owens-yellow secretions. Vent plugged into red outlet, ambubag at bedside. Pt in no apparent distress at this time. Will continue to monitor pt.
--- NOTE | 2019-06-18 19:28 | NUR ---
HAND-OFF: Report given to ODILIA Dumas.
[2019-06-18] MEDS: Dyna-Hex 2% Top Sol 2oz TOPIC SCH (19:42)
--- NOTE | 2019-06-18 19:50 | NUR ---
NURSE NOTES: Patient open eyes, no response to verbal stimuli, on Trach to vent, ac 16/tv 600/fio2 35%/ no peep, o2 saturation 100% noted, abdomen soft, non tender status, G tube intact and patent, ongoing Glucerna 1.5 at 40ml/hr, no residue noted, kept hob over 30degrees, F/C intact and patent, cloudy yellow urine outed, TLC to right SC, intact and patent, ongoing D5%W at 50ml/hr, on P200 BED, kept SZ precaution and bed alarm, made call light within reach, will continue to monitor.
[2019-06-18] MEDS: Ertapenem 1 GM in NS 55 ML IV SCH (20:37)
[2019-06-18] MEDS: Phenylephrine 50 MG in D5W 245 ML IV SCH (21:00)
--- NOTE | 2019-06-18 21:08 | Surgery Progress Note ---
Surgery Progress Note Subjective Procedure Performed right subclavian central venous catheter insertion Additional Comments no acute events labs noted exam stable Objective Last 24 Hour Vital Signs Date Time Temp Pulse Resp B/P (MAP) Pulse Ox O2 Delivery O2 Flow Rate FiO2 06/18/19 19:03 91 16 35 06/18/19 19:00 90 17 118/75 (89) 99 06/18/19 18:00 112/79 06/18/19 18:00 88 16 112/79 (90) 99 06/18/19 17:25 97 20 35 06/18/19 17:00 95 16 114/63 (80) 99 06/18/19 16:00 Mechanical Ventilator 06/18/19 16:00 90 06/18/19 16:00 98.7 93 16 105/69 (81) 100 06/18/19 16:00 35 06/18/19 15:08 89 15 35 06/18/19 15:00 91 16 105/70 (82) 100 06/18/19 14:00 88 16 105/60 (75) 99 06/18/19 13:00 88 18 35 06/18/19 13:00 94 16 118/87 (97) 99 06/18/19 12:00 93 06/18/19 12:00 98.7 93 18 100/59 (73) 99 06/18/19 12:00 Mechanical Ventilator 06/18/19 12:00 35 06/18/19 11:07 88 16 35 06/18/19 11:00 93 18 116/59 (78) 99 06/18/19 10:00 95 16 118/59 (78) 100 06/18/19 09:06 92 15 35 06/18/19 09:00 93 16 105/57 (73) 100 06/18/19 08:37 94 06/18/19 08:00 95 16 102/77 (85) 100 06/18/19 08:00 35 06/18/19 08:00 Mechanical Ventilator 06/18/19 07:00 98.4 85 15 98/46 (63) 100 06/18/19 06:46 86 14 35 06/18/19 06:00 85 16 96/54 (68) 97 06/18/19 05:30 92 18 35 06/18/19 05:00 94 16 102/52 (69) 97 06/18/19 04:00 Mechanical Ventilator 06/18/19 04:00 35 06/18/19 04:00 93 06/18/19 04:00 99.4 93 16 105/60 (75) 97 06/18/19 03:09 96 18 35 06/18/19 03:00 93 16 104/54 (71) 97 06/18/19 02:00 96 18 103/57 (72) 99 06/18/19 01:00 95 18 99/84 (89) 99 06/18/19 00:35 97 18 35 06/18/19 00:00 92 06/18/19 00:00 Mechanical Ventilator 06/18/19 00:00 98.6 95 16 100/52 (68) 99 06/18/19 00:00 35 06/17/19 23:00 93 16 99/52 (68) 99 06/17/19 22:35 94 18 35 06/17/19 22:00 96 17 96/53 (67) 99 06/17/19 21:10 96 16 35 I&O Intake and Output 06/17/19 06/18/19 19:00 07:00 Intake Total 596.25 ml 980 ml Output Total 400 ml 1350 ml Balance 196.25 ml -370 ml Intake Free Water 60 ml 90 ml IV Total 426.25 ml 500 ml Tube Feeding 110 ml 390 ml Output Urine Total 400 ml 1350 ml # Bowel Movements 1 2 Dressing: saturated Wound: other Drains: other Cardiovascular: RSR Respiratory: decreased breath sounds Abdomen: soft, present bowel sounds, non-distended, decreased bowel sounds Extremities: no cyanosis, other Laboratory Tests Test 06/18/19 05:00 White Blood Count 9.0 K/UL (4.8-10.8) Red Blood Count 2.98 M/UL (4.70-6.10) L Hemoglobin 8.2 G/DL (14.2-18.0) L Hematocrit 26.0 % (42.0-52.0) L Mean Corpuscular Volume 87 FL (80-99) Mean Corpuscular Hemoglobin 27.5 PG (27.0-31.0) Mean Corpuscular Hemoglobin Concent 31.6 G/DL (32.0-36.0) L Red Cell Distribution Width 15.6 % (11.6-14.8) H Platelet Count 95 K/UL (150-450) L Mean Platelet Volume 8.1 FL (6.5-10.1) Neutrophils (%) (Auto) % (45.0-75.0) Lymphocytes (%) (Auto) % (20.0-45.0) Monocytes (%) (Auto) % (1.0-10.0) Eosinophils (%) (Auto) % (0.0-3.0) Basophils (%) (Auto) % (0.0-2.0) Differential Total Cells Counted 100 Neutrophils % (Manual) 78 % (45-75) H Lymphocytes % (Manual) 11 % (20-45) L Monocytes % (Manual) 7 % (1-10) Eosinophils % (Manual) 0 % (0-3) Basophils % (Manual) 0 % (0-2) Band Neutrophils 4 % (0-8) Platelet Estimate Decreased L Platelet Morphology Normal Anisocytosis 1+ Sodium Level 146 MMOL/L (136-145) H Potassium Level 4.2 MMOL/L (3.5-5.1) Chloride Level 119 MMOL/L (98-107) H Carbon Dioxide Level 17 MMOL/L (21-32) L Anion Gap 10 mmol/L (5-15) Blood Urea Nitrogen 32 mg/dL (7-18) H Creatinine 1.4 MG/DL (0.55-1.30) H Estimat Glomerular Filtration Rate 50.1 mL/min (>60) Glucose Level 82 MG/DL (74-106) Calcium Level 8.8 MG/DL (8.5-10.1) Phosphorus Level 3.5 MG/DL (2.5-4.9) Magnesium Level 2.4 MG/DL (1.8-2.4) Total Bilirubin 0.2 MG/DL (0.2-1.0) Aspartate Amino Transf (AST/SGOT) 50 U/L (15-37) H Alanine Aminotransferase (ALT/SGPT) 59 U/L (12-78) Alkaline Phosphatase 206 U/L (46-116) H C-Reactive Protein, Quantitative 15.2 mg/dL (0.00-0.90) H Pro-B-Type Natriuretic Peptide 87530 pg/mL (0-125) H Total Protein 5.7 G/DL (6.4-8.2) L Albumin 1.9 G/DL (3.4-5.0) L Globulin 3.8 g/dL Albumin/Globulin Ratio 0.5 (1.0-2.7) L Random Amikacin Level 10.2 ug/mL Plan Problems: (1) Severe protein-calorie malnutrition Assessment & Plan: DAILY ESTIMATED NEEDS: Needs based on Critical care, underweight TF CLEANER 56.8 30-35 kcals/kg 0710-8351 total kcals 1.25-2 g protein/kg 71-113.6 g total protein 25-30 mL/kg 8368-1082 total fluid mLs NUTRITION DIAGNOSIS: * Increased kcal/prot intake needs R/T sepsis and underweight status as evidenced by pt adm w/ critically elev WBC (35.7*), febrile, @68% [place] Body Weight. * Swallowing difficulty R/T respiratory status as evidenced by pt vent dep via trach, PEG dep. ENTERAL NUTRITION RECOMMENDATIONS: Nepro @45mL/hr x 22hr to provide 990mL, 1782kcal, 80g pro, 720mL free water -When Hemodynamically stable, start Nepro @ 15mL/hr for 6 hrs. -Advance as tolerated 10mL q 4-6 hrs to goal. -TF @goal meets 100% est needs. -Flush per MD/ HOB >30 degrees. ADDITIONAL RECOMMENDATIONS: * Calibrated bedscale weight for accurate CBW + weekly wt monitoring * Per SNF: Ht of 6'1", Wt 125# (05/2019) * TF recs as above when medically stable * Monitor for cont'd need of renal formula (K 5.5) * Monitor lytes and hydration status. (2) Feeding by G-tube (3) Respiratory failure, [id number] (4) Septic shock Assessment & Plan: hypotensive tachycardic labs as above line placed fluid resuscitation pressors off now improving will follow with recs thank you (5) Severe sepsis Quirino Bernard Jun 18, 2019 21:08
--- NOTE | 2019-06-18 22:00 | NUR ---
NURSE NOTES: Repositioned and oral care was done.
[2019-06-19] VITALS (9 sets, daily range): BP systolic 108–156; BP diastolic 61–98
--- NOTE | 2019-06-19 00:10 | NUR ---
NURSE NOTES: No pain or distress noted at this time.
[2019-06-19] MEDS ORDERED: Vancomycin 750mg/NS 275ml IVPB SCH ×2 (02:00)
[2019-06-19] MEDS: Metoclopramide 10mg/2ml Inj IVP SCH (02:59)
--- NOTE | 2019-06-19 03:00 | NUR ---
NURSE NOTES: No acute distress noted at this time.
--- NOTE | 2019-06-19 03:18 | NUR ---
TRANSFER TO FLOOR: Patient transferred to SDU room 244-4 via hospital bed. Report given to ODILIA MENDEZ. NO Belongings and medications given to receiving nurse.
--- NOTE | 2019-06-19 03:26 | NUR ---
NURSE NOTES: Received report from West RN, pt. transferred from ICU- pt. in bed awake- opens eyes- non-verbal, no signs or symptoms of acute cardiac or respiratory distress noted, side rails up x's3 3 and safety brakes engaged, bed in lowest position and call light within easy reach. Pt. appears to be tolerating current vent settings well- AC16, TV 600, Fio2 at 28% and no peep- no distress noted, G tube running Glucerna 1.5 at 40cc/hr- no residual noted, full body assessment done- skin intact, pt. teaching done and pt. oriented to room, bonded structures repairer placed,. Rt. subclavian D5W running at 50cc/hr- intact and patent, safety measures continued, will continue with plan of care. Addendum: 06/19/19 at 0338 by ANDREA BELLE RN RN correction to message above FIO2 is at 35%.
[2019-06-19] MEDS ORDERED: Metoclopramide 10mg/2ml Inj IVP SCH (03:30)
[2019-06-19] MEDS ORDERED: Acetaminophen 650mg/20.3ml GT PRN (04:00)
[2019-06-19] MEDS ORDERED: LORazepam Inj 2mg/ml 1ml IV PRN (04:30)
[2019-06-19 05:37] LABS: BASOPHILS % (AUTO) 0.4 % (0.0-2.0); EOSINOPHILS % (AUTO) 1.9 % (0.0-3.0); HEMATOCRIT 27.8 % (42.0-52.0); HEMOGLOBIN 8.7 G/DL (14.2-18.0); LYMPHOCYTES % (AUTO) 13.7 % (20.0-45.0); MEAN CORPUSCULAR VOLUME 87 FL (80-99); MONOCYTES % (AUTO) 9.3 % (1.0-10.0); NEUTROPHILS % (AUTO) 74.8 % (45.0-75.0); PLATELET COUNT 101 K/UL (150-450); RED BLOOD COUNT 3.18 M/UL (4.70-6.10); RED CELL DISTRIBUTION WIDTH 15.3 % (11.6-14.8)
[2019-06-19 05:59] LABS: ALANINE AMINOTRANSFERASE 55 U/L (12-78); ALBUMIN 1.9 G/DL (3.4-5.0); ALBUMIN/GLOBULIN RATIO 0.5 (1.0-2.7); ALKALINE PHOSPHATASE 202 U/L (46-116); ANION GAP 8 mmol/L (5-15); ASPARTATE AMINO TRANSFERASE 50 U/L (15-37); BILIRUBIN,TOTAL 0.2 MG/DL (0.2-1.0); BLOOD UREA NITROGEN 35 mg/dL (7-18); CALCIUM 8.7 MG/DL (8.5-10.1); CARBON DIOXIDE 20 MMOL/L (21-32); CHLORIDE 119 MMOL/L (98-107); CREATININE 1.4 MG/DL (0.55-1.30); POTASSIUM 4.6 MMOL/L (3.5-5.1); SODIUM 147 MMOL/L (136-145)
[2019-06-19] MEDS ORDERED: Albuterol/Ipratropium 3ml neb HHN PRN (06:30)
--- NOTE | 2019-06-19 07:18 | NUR ---
HAND-OFF: Report given to Urszula RN, pt. remains stable and no signs of distress noted.
--- NOTE | 2019-06-19 07:30 | NUR ---
NURSE NOTES: Received the patient from ODILIA Haq. Patient is asleep, easily arousable to light touch, non-verbal. Patient on trach to vent, Portex 8, AC 16, TV 600, FIO2 35%. O2 96%. No acute distress noted. SR noted on beef ribber. G-tube intact, running Glucerna 1.5 at 40ml/hr. No residual noted. HOB kept elevated. Right subclavian TLC intact, running D5W at 50ml/hr. Victor cath intact, draining yellow urine by gravity. Patient on P200 mattress. Skin intact. Bed in lowest position, locked, side rails upx3, padded. Bed alarm on. Call light within reach. Will continue to monitor.
--- NOTE | 2019-06-19 07:58 | NUR ---
NURSE NOTES: Spoke with Dr. Nath. made aware of H/H and plt. Per MD, okay to administer sq heparin, hold heparin sq for plt <75. No s/sx of bleeding noted.
[2019-06-19] MEDS ORDERED: Heparin 5000 units/ml inj SUBQ SCH ×2 (09:00)
[2019-06-19] MEDS ORDERED: Pantoprazole Inj IVP SCH (09:00)
[2019-06-19] MEDS ORDERED: Amikacin Rx to dose MISC PRN (09:00)
--- NOTE | 2019-06-19 09:18 | NUR ---
RADIOLOGY DEPT., CHEST X-RAY DONE.-P.DYE
--- NOTE | 2019-06-19 09:45 | General Progress Note ---
Assessment/Plan Problem List: (1) Diabetes ICD Codes: E11.9 - Type 2 diabetes mellitus without complications SNOMED: 89033475 (2) HTN (hypertension) ICD Codes: I10 - Essential (primary) hypertension SNOMED: 80850476 (3) CVA (cerebral vascular accident) ICD Codes: I63.9 - Cerebral infarction, unspecified SNOMED: 944234021 (4) Severe protein-calorie malnutrition ICD Codes: E43 - Unspecified severe protein-calorie malnutrition SNOMED: 579642365 (5) Feeding by G-tube ICD Codes: Z93.1 - Gastrostomy status SNOMED: 404185708, 554572639 (6) Respiratory failure, surxf-cx-cbwilix ICD Codes: J96.20 - Respiratory failure, zsumo-dd-illsail SNOMED: 99597054 (7) Anemia ICD Codes: D64.9 - Anemia, unspecified SNOMED: 888096290 (8) Chronic respiratory failure ICD Codes: J96.10 - Chronic respiratory failure, unspecified whether with hypoxia or hypercapnia SNOMED: 70669482 (9) Septic shock ICD Codes: A41.9 - Sepsis, unspecified organism; R65.21 - Severe sepsis with septic shock SNOMED: 88920516 (10) Alzheimer's dementia ICD Codes: G30.9 - Alzheimer's disease, unspecified SNOMED: 65235000 (11) Severe sepsis ICD Codes: A41.9 - Sepsis, unspecified organism; R65.20 - Severe sepsis without septic shock SNOMED: 90662576 (12) Hypothyroidism ICD Codes: E03.9 - Hypothyroidism, unspecified SNOMED: 94382158 Status: unchanged Assessment/Plan: vent abx wean pressor cbc bmp am ltach eval Subjective Constitutional: Reports: weakness Allergies: Coded Allergies: NO KNOWN DRUG ALLERGIES (Verified Allergy, Unknown, 09/11/16) All Systems: reviewed and negative except above Subjective trach vent altered Objective Last 24 Hour Vital Signs Date Time Temp Pulse Resp B/P (MAP) Pulse Ox O2 Delivery O2 Flow Rate FiO2 06/19/19 09:39 96 06/19/19 08:52 97 17 35 06/19/19 08:00 35 06/19/19 08:00 97.5 94 20 156/61 (92) 95 06/19/19 08:00 Mechanical Ventilator 06/19/19 06:51 96 17 35 10/10/19 05:13 6 16 35 06/19/19 04:00 Mechanical Ventilator 06/19/19 04:00 98.0 94 16 137/88 (104) 98 06/19/19 04:00 91 06/19/19 04:00 35 06/19/19 03:02 92 18 35 06/19/19 03:00 91 17 116/71 (86) 99 06/19/19 02:00 89 15 122/98 (106) 100 06/19/19 01:04 89 17 35 06/19/19 01:00 89 17 134/82 (99) 100 06/19/19 00:00 Mechanical Ventilator 06/19/19 00:00 98.4 88 15 108/84 (92) 100 06/18/19 23:35 79 06/18/19 23:02 89 23 35 06/18/19 23:00 93 16 105/81 (89) 99 06/18/19 22:00 92 16 117/69 (85) 99 06/18/19 21:21 91 16 35 06/18/19 21:00 92 16 109/79 (89) 100 06/18/19 21:00 92 118/63 06/18/19 20:00 35 06/18/19 20:00 98.4 93 14 157/70 (99) 100 06/18/19 20:00 Mechanical Ventilator 06/18/19 19:49 92 06/18/19 19:03 91 16 35 06/18/19 19:00 90 17 118/75 (89) 99 06/18/19 18:00 112/79 06/18/19 18:00 88 16 112/79 (90) 99 06/18/19 17:25 97 20 35 06/18/19 17:00 95 16 114/63 (80) 99 06/18/19 16:00 Mechanical Ventilator 06/18/19 16:00 90 06/18/19 16:00 98.7 93 16 105/69 (81) 100 06/18/19 16:00 35 06/18/19 15:08 89 15 35 06/18/19 15:00 91 16 105/70 (82) 100 06/18/19 14:00 88 16 105/60 (75) 99 06/18/19 13:00 88 18 35 06/18/19 13:00 94 16 118/87 (97) 99 06/18/19 12:00 93 06/18/19 12:00 98.7 93 18 100/59 (73) 99 06/18/19 12:00 Mechanical Ventilator 06/18/19 12:00 35 06/18/19 11:07 88 16 35 06/18/19 11:00 93 18 116/59 (78) 99 06/18/19 10:00 95 16 118/59 (78) 100 Intake and Output 06/18/19 06/19/19 18:59 06:59 Intake Total 1515 ml 1170 ml Output Total 496 ml 590 ml Balance 1019 ml 580 ml Intake Free Water 200 ml 50 ml IV Total 875 ml 610 ml Tube Feeding 410 ml 480 ml Other 30 ml 30 ml Output Urine Total 495 ml 590 ml Stool Total 1 ml Laboratory Tests 06/19/19 04:00: White Blood Count 9.0, Red Blood Count 3.18L, Hemoglobin 8.7L, Hematocrit 27.8L , Mean Corpuscular Volume 87, Mean Corpuscular Hemoglobin 27.2, Mean Corpuscular Hemoglobin Concent 31.1L, Red Cell Distribution Width 15.3H, Platelet Count 101L, Mean Platelet Volume 8.3, Neutrophils (%) (Auto) 74.8, Lymphocytes (%) (Auto) 13.7L, Monocytes (%) (Auto) 9.3, Eosinophils (%) (Auto) 1.9, Basophils (%) (Auto) 0.4, Sodium Level 147H, Potassium Level 4.6, Chloride Level 119H, Carbon Dioxide Level 20L, Anion Gap 8, Blood Urea Nitrogen 35H, Creatinine 1.4H, Estimat Glomerular Filtration Rate 50.1, Glucose Level 81, Calcium Level 8.7, Total Bilirubin 0.2, Aspartate Amino Transf (AST/SGOT) 50H, Alanine Aminotransferase (ALT/SGPT) 55, Alkaline Phosphatase 202H, Pro-B-Type Natriuretic Peptide 52095L, Total Protein 5.9L, Albumin 1.9L, Globulin 4.0, Albumin/Globulin Ratio 0.5L, Random Amikacin Level 5.5 Height (Feet): 5 Height (Inches): 8.00 Weight (Pounds): 151 General Appearance: lethargic EENT: normal ENT inspection Neck: normal alignment Cardiovascular: normal peripheral pulses, normal rate, regular rhythm Respiratory/Chest: chest wall non-tender, lungs clear, normal breath sounds Abdomen: normal bowel sounds, non tender, soft Extremities: normal inspection Edema: no edema noted Arm (L), no edema noted Arm (R), no edema noted Leg (L), no edema noted Leg (R), no edema noted Pedal (L), no edema noted Pedal (R), no edema noted Generalized Neurologic: motor weakness Skin: normal pigmentation, warm/dry Gato Viveros DO Jun 19, 2019 09:45
--- NOTE | 2019-06-19 09:50 | Nephrology Progress Note ---
Assessment/Plan Problem List: (1) Septic shock (2) Hypothyroidism (3) Upper GI bleed (4) Respiratory failure, ctgif-mu-dwczxde (5) Anemia Assessment Sepsis Shock on pressors GI Bleed Low Na and high K UTI HypoThyroidism Tracheostomy dependence Respiratory failure, cufin-xp-faycgcj Alzheimer's Feeding by G-tube Plan off pressors- On Midodrine On GT feeding On Reglan fluid challenge as needed adjust IV fluids transfuse as needed Monitor lytes and renal parametrs urine studies per orders Subjective ROS Limited/Unobtainable: No Objective Objective Last 24 Hour Vital Signs Date Time Temp Pulse Resp B/P (MAP) Pulse Ox O2 Delivery O2 Flow Rate FiO2 06/19/19 09:39 96 06/19/19 08:52 97 17 35 06/19/19 08:00 35 06/19/19 08:00 97.5 94 20 156/61 (92) 95 06/19/19 08:00 Mechanical Ventilator 06/19/19 06:51 96 17 35 06/19/19 05:13 6 16 35 06/19/19 04:00 Mechanical Ventilator 06/19/19 04:00 98.0 94 16 137/88 (104) 98 06/19/19 04:00 91 06/19/19 04:00 35 06/19/19 03:02 92 18 35 06/19/19 03:00 91 17 116/71 (86) 99 06/19/19 02:00 89 15 122/98 (106) 100 06/19/19 01:04 89 17 35 06/19/19 01:00 89 17 134/82 (99) 100 06/19/19 00:00 Mechanical Ventilator 06/19/19 00:00 98.4 88 15 108/84 (92) 100 06/18/19 23:35 79 06/18/19 23:02 89 23 35 06/18/19 23:00 93 16 105/81 (89) 99 06/18/19 22:00 92 16 117/69 (85) 99 06/18/19 21:21 91 16 35 06/18/19 21:00 92 16 109/79 (89) 100 06/18/19 21:00 92 118/63 06/18/19 20:00 35 06/18/19 20:00 98.4 93 14 157/70 (99) 100 06/18/19 20:00 Mechanical Ventilator 06/18/19 19:49 92 06/18/19 19:03 91 16 35 06/18/19 19:00 90 17 118/75 (89) 99 06/18/19 18:00 112/79 06/18/19 18:00 88 16 112/79 (90) 99 06/18/19 17:25 97 20 35 06/18/19 17:00 95 16 114/63 (80) 99 06/18/19 16:00 Mechanical Ventilator 06/18/19 16:00 90 06/18/19 16:00 98.7 93 16 105/69 (81) 100 06/18/19 16:00 35 06/18/19 15:08 89 15 35 06/18/19 15:00 91 16 105/70 (82) 100 06/18/19 14:00 88 16 105/60 (75) 99 06/18/19 13:00 88 18 35 06/18/19 13:00 94 16 118/87 (97) 99 06/18/19 12:00 93 06/18/19 12:00 98.7 93 18 100/59 (73) 99 06/18/19 12:00 Mechanical Ventilator 06/18/19 12:00 35 06/18/19 11:07 88 16 35 06/18/19 11:00 93 18 116/59 (78) 99 06/18/19 10:00 95 16 118/59 (78) 100 Intake and Output 06/18/19 06/19/19 18:59 06:59 Intake Total 1515 ml 1170 ml Output Total 496 ml 590 ml Balance 1019 ml 580 ml Intake Free Water 200 ml 50 ml IV Total 875 ml 610 ml Tube Feeding 410 ml 480 ml Other 30 ml 30 ml Output Urine Total 495 ml 590 ml Stool Total 1 ml Laboratory Tests 06/19/19 04:00: White Blood Count 9.0, Red Blood Count 3.18L, Hemoglobin 8.7L, Hematocrit 27.8L , Mean Corpuscular Volume 87, Mean Corpuscular Hemoglobin 27.2, Mean Corpuscular Hemoglobin Concent 31.1L, Red Cell Distribution Width 15.3H, Platelet Count 101L, Mean Platelet Volume 8.3, Neutrophils (%) (Auto) 74.8, Lymphocytes (%) (Auto) 13.7L, Monocytes (%) (Auto) 9.3, Eosinophils (%) (Auto) 1.9, Basophils (%) (Auto) 0.4, Sodium Level 147H, Potassium Level 4.6, Chloride Level 119H, Carbon Dioxide Level 20L, Anion Gap 8, Blood Urea Nitrogen 35H, Creatinine 1.4H, Estimat Glomerular Filtration Rate 50.1, Glucose Level 81, Calcium Level 8.7, Total Bilirubin 0.2, Aspartate Amino Transf (AST/SGOT) 50H, Alanine Aminotransferase (ALT/SGPT) 55, Alkaline Phosphatase 202H, Pro-B-Type Natriuretic Peptide 66250F, Total Protein 5.9L, Albumin 1.9L, Globulin 4.0, Albumin/Globulin Ratio 0.5L, Random Amikacin Level 5.5 Height (Feet): 5 Height (Inches): 8.00 Weight (Pounds): 151 General Appearance: no apparent distress Cardiovascular: normal rate Respiratory/Chest: decreased breath sounds Abdomen: distended Sav Salvador MD Jun 19, 2019 09:50
--- NOTE | 2019-06-19 10:00 | NUR ---
NURSE NOTES: patient was turned and repositioned. Patient kept clean and dry.
[2019-06-19] MEDS: Heparin 5000 units/ml inj SUBQ SCH ×2 (10:06→21:00)
--- NOTE | 2019-06-19 10:10 | Diagnostic Imaging Report ---
Indication: Dyspnea Technique: One view of the chest Comparison: 06/16/2019 Findings: Stable satisfactory position of endotracheal tube, right subclavian central venous catheter. There is interim worsening of previously demonstrated bilateral interstitial and airspace disease, there appears to be increased pleural fluid as well. Less optimal inspiration currently. Impression: Over 3 days, interim worsening of bilateral pleural effusions and bilateral interstitial and airspace infiltrates versus edema
--- NOTE | 2019-06-19 10:10 | NUR ---
NURSE NOTES: am meds pulled out from pyxis by primary RN, but primary RN was off the unit for patient care and unable to administer. All meds given to charge nurse, Hayley, to administer. Heparin sq given by charge nurse. all other meds were changed by MD, not administered and wasted by charge nurse appropriately.
--- NOTE | 2019-06-19 11:06 | Pulmonolgy Critical Care Note ---
Critical Care - Asmt/Plan Problems: (1) Septic shock (2) Pyelonephritis (3) Chronic respiratory failure (4) Alzheimer's dementia (5) Severe erosive esophagitis (6) Feeding by G-tube (7) Diabetes (8) CVA (cerebral vascular accident) Respiratory: monitor respiratory rate, adjust FIO2, CXR Cardiac: continue to monitor HR/BP Renal: F/U I&O, keep IV fluid, check electrolytes Infectious Disease: check cultures Gastrointestinal: continue feedings/current rate, hold feedings Endocrine: monitor blood sugar Hematologic: monitor H/H, transfuse if hgb<8.5 Neurologic: PRN Ativan, keep patient comfortable Disposition: keep in ICU Notes Reviewed: cardio, 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 with: nurses, consultants, case managersinspection manager - Objective Last 24 Hour Vital Signs Date Time Temp Pulse Resp B/P (MAP) Pulse Ox O2 Delivery O2 Flow Rate FiO2 06/19/19 09:39 96 06/19/19 08:52 97 17 35 06/19/19 08:00 35 06/19/19 08:00 97.5 94 20 156/61 (92) 95 06/19/19 08:00 Mechanical Ventilator 06/19/19 06:51 96 17 35 06/19/19 05:13 6 16 35 06/19/19 04:00 Mechanical Ventilator 06/19/19 04:00 98.0 94 16 137/88 (104) 98 06/19/19 04:00 91 06/19/19 04:00 35 06/19/19 03:02 92 18 35 06/19/19 03:00 91 17 116/71 (86) 99 06/19/19 02:00 89 15 122/98 (106) 100 06/19/19 01:04 89 17 35 06/19/19 01:00 89 17 134/82 (99) 100 06/19/19 00:00 Mechanical Ventilator 06/19/19 00:00 98.4 88 15 108/84 (92) 100 06/18/19 23:35 79 06/18/19 23:02 89 23 35 06/18/19 23:00 93 16 105/81 (89) 99 06/18/19 22:00 92 16 117/69 (85) 99 06/18/19 21:21 91 16 35 06/18/19 21:00 92 16 109/79 (89) 100 10/9/19 21:00 92 118/63 06/18/19 20:00 35 06/18/19 20:00 98.4 93 14 157/70 (99) 100 06/18/19 20:00 Mechanical Ventilator 06/18/19 19:49 92 06/18/19 19:03 91 16 35 06/18/19 19:00 90 17 118/75 (89) 99 06/18/19 18:00 112/79 06/18/19 18:00 88 16 112/79 (90) 99 06/18/19 17:25 97 20 35 06/18/19 17:00 95 16 114/63 (80) 99 06/18/19 16:00 Mechanical Ventilator 06/18/19 16:00 90 06/18/19 16:00 98.7 93 16 105/69 (81) 100 06/18/19 16:00 35 06/18/19 15:08 89 15 35 06/18/19 15:00 91 16 105/70 (82) 100 06/18/19 14:00 88 16 105/60 (75) 99 06/18/19 13:00 88 18 35 06/18/19 13:00 94 16 118/87 (97) 99 06/18/19 12:00 93 06/18/19 12:00 98.7 93 18 100/59 (73) 99 06/18/19 12:00 Mechanical Ventilator 06/18/19 12:00 35 06/18/19 11:07 88 16 35 Status: obtunded Condition: critical Lungs: clear, chest wall tender Heart: HR/BP stable Abdomen: soft, non-tender Extremities: edema Critical Care - Subjective ROS Limited/Unobtainable: Yes Condition: critical FI02: 35 Vent Support Breath Rate: 16 Vent Support Mode: AC Vent Tidal Volume: 600 Sputum Amount: Small PEEP: 0.0 PIP: 32 Tube Feeding Amount: 40 I&O: Intake and Output 06/18/19 06/19/19 19:00 07:00 Intake Total 1605 ml 1090 ml Output Total 436 ml 560 ml Balance 1169 ml 530 ml Intake Free Water 250 ml IV Total 875 ml 610 ml Tube Feeding 420 ml 480 ml Other 60 ml Output Urine Total 435 ml 560 ml Stool Total 1 ml CXR: worsening pleural effusion Labs: Laboratory Tests Test 06/19/19 04:00 White Blood Count 9.0 K/UL (4.8-10.8) Red Blood Count 3.18 M/UL (4.70-6.10) L Hemoglobin 8.7 G/DL (14.2-18.0) L Hematocrit 27.8 % (42.0-52.0) L Mean Corpuscular Volume 87 FL (80-99) Mean Corpuscular Hemoglobin 27.2 PG (27.0-31.0) Mean Corpuscular Hemoglobin Concent 31.1 G/DL (32.0-36.0) L Red Cell Distribution Width 15.3 % (11.6-14.8) H Platelet Count 101 K/UL (150-450) L Mean Platelet Volume 8.3 FL (6.5-10.1) Neutrophils (%) (Auto) 74.8 % (45.0-75.0) Lymphocytes (%) (Auto) 13.7 % (20.0-45.0) L Monocytes (%) (Auto) 9.3 % (1.0-10.0) Eosinophils (%) (Auto) 1.9 % (0.0-3.0) Basophils (%) (Auto) 0.4 % (0.0-2.0) Sodium Level 147 MMOL/L (136-145) H Potassium Level 4.6 MMOL/L (3.5-5.1) Chloride Level 119 MMOL/L (98-107) H Carbon Dioxide Level 20 MMOL/L (21-32) L Anion Gap 8 mmol/L (5-15) Blood Urea Nitrogen 35 mg/dL (7-18) H Creatinine 1.4 MG/DL (0.55-1.30) H Estimat Glomerular Filtration Rate 50.1 mL/min (>60) Glucose Level 81 MG/DL (74-106) Calcium Level 8.7 MG/DL (8.5-10.1) Total Bilirubin 0.2 MG/DL (0.2-1.0) Aspartate Amino Transf (AST/SGOT) 50 U/L (15-37) H Alanine Aminotransferase (ALT/SGPT) 55 U/L (12-78) Alkaline Phosphatase 202 U/L (46-116) H Pro-B-Type Natriuretic Peptide 53193 pg/mL (0-125) H Total Protein 5.9 G/DL (6.4-8.2) L Albumin 1.9 G/DL (3.4-5.0) L Globulin 4.0 g/dL Albumin/Globulin Ratio 0.5 (1.0-2.7) L Random Amikacin Level 5.5 ug/mL Huma Keating MD Jun 19, 2019 11:06
--- NOTE | 2019-06-19 12:00 | NUR ---
NURSE NOTES: Patient asleep, easily arousable. No distress noted. HOB kept elevated. Patient kept clean and dry. VSS.
[2019-06-19] MEDS: Metoclopramide 10mg/10ml Liq NG SCH ×2 (12:27→17:12)
--- NOTE | 2019-06-19 13:07 | Infectious Diseases Prog Note ---
Assessment/Plan Assessment/Plan Mr. Huffman is a 68 yo male with PMHx of of chronic resp failure trach/vent dependant, diffuse ulcerative esophagitis, peptic esophageal stricture, asthma, GERD, Dm2, CVA/TIA w/ hemiplegia, functional quadriplegia, CAD, CHF, ESBL UTI , GIB s/p multiple EGDs in the past, schizoaffective disorder, Dementia, hypothyroidism, malnutrition, non verbal, infected obstuctive ureterolithiasis/ w abscess s/p L NT palced 12/2018, encephalopathy, Alzheimer's disease, multiple admissions, subacute facility resident who was sent to the for hypotension and bradycardia. Septic Shock- likely 2ry to UTI and PNA- off pressors now off perssors now Hx of resistant infections Urine Cx 06/14/19 - >100k ESBL P, stuarti, ESBL P mirabilis (both S Ertapenem , ZOsyn) Blood Cx - NTD CXR show probable pna sp cx p Leukocytosis; SP Hypothermia; SP Chronic resp failure trach/vent dependant asthma Dm2 CVA/TIA w/ hemiplegia Functional quadriplegia CAD CHF GIB s/p multiple EGDs in the past Schizoaffective disorder Dementia Hypothyroidism Non verbal Alzheimer's disease PLAN: - Continue Amikacin #5 and Ertapenem #5 and IV Vancomycin #5 pending sp Cx -06/17 SP PO Vancomycin #3 -06/16 SP Flagyl #2 - monitor CBC and Temps - f/u sp cx Thank you for this consult. [facility] will continue to follow the patient with you during this hospitalization. Subjective Allergies: Coded Allergies: NO KNOWN DRUG ALLERGIES (Verified Allergy, Unknown, 09/11/16) Subjective afebrile no leukocytosis transferred out of ICU to [facility] Objective Vital Signs Last 24 Hour Vital Signs Date Time Temp Pulse Resp B/P (MAP) Pulse Ox O2 Delivery O2 Flow Rate FiO2 06/19/19 12:00 97.2 96 18 133/61 (85) 99 06/19/19 12:00 35 06/19/19 12:00 Mechanical Ventilator 06/19/19 11:23 9 16 35 06/19/19 09:39 96 06/19/19 08:52 97 17 35 06/19/19 08:00 35 06/19/19 08:00 97.5 94 20 156/61 (92) 95 06/19/19 08:00 Mechanical Ventilator 06/19/19 06:51 96 17 35 06/19/19 05:13 6 16 35 06/19/19 04:00 Mechanical Ventilator 06/19/19 04:00 98.0 94 16 137/88 (104) 98 06/19/19 04:00 91 06/19/19 04:00 35 06/19/19 03:02 92 18 35 06/19/19 03:00 91 17 116/71 (86) 99 06/19/19 02:00 89 15 122/98 (106) 100 06/19/19 01:04 89 17 35 06/19/19 01:00 89 17 134/82 (99) 100 06/19/19 00:00 Mechanical Ventilator 06/19/19 00:00 98.4 88 15 108/84 (92) 100 06/18/19 23:35 79 06/18/19 23:02 89 23 35 06/18/19 23:00 93 16 105/81 (89) 99 06/18/19 22:00 92 16 117/69 (85) 99 06/18/19 21:21 91 16 35 06/18/19 21:00 92 16 109/79 (89) 100 06/18/19 21:00 92 118/63 06/18/19 20:00 35 06/18/19 20:00 98.4 93 14 157/70 (99) 100 06/18/19 20:00 Mechanical Ventilator 06/18/19 19:49 92 06/18/19 19:03 91 16 35 06/18/19 19:00 90 17 118/75 (89) 99 06/18/19 18:00 112/79 06/18/19 18:00 88 16 112/79 (90) 99 06/18/19 17:25 97 20 35 06/18/19 17:00 95 16 114/63 (80) 99 06/18/19 16:00 Mechanical Ventilator 06/18/19 16:00 90 06/18/19 16:00 98.7 93 16 105/69 (81) 100 06/18/19 16:00 35 06/18/19 15:08 89 15 35 06/18/19 15:00 91 16 105/70 (82) 100 06/18/19 14:00 88 16 105/60 (75) 99 Height (Feet): 5 Height (Inches): 8.00 Weight (Pounds): 151 Objective Gen: On vent in IVU HEENT: NCAT, MMM, PERRL, No Oral lesion, no scleral icterus NECK: supple, No LAD, No JVD, Trached LUNGS: Coarse B/L, No W/C CARDS: RRR, S1, S2, No M/R/G, ABD: Soft, NT, ND, No R/G, + BS, No HSM, No Masses, PEG : Deferred Ext: C/C/E, Pulses 2+ B/L (DP, Rad): NEURO: A/O x 0, no following SKIN: Warm/dry, No rashes Laboratory Tests Test 06/19/19 04:00 White Blood Count 9.0 K/UL (4.8-10.8) Red Blood Count 3.18 M/UL (4.70-6.10) L Hemoglobin 8.7 G/DL (14.2-18.0) L Hematocrit 27.8 % (42.0-52.0) L Mean Corpuscular Volume 87 FL (80-99) Mean Corpuscular Hemoglobin 27.2 PG (27.0-31.0) Mean Corpuscular Hemoglobin Concent 31.1 G/DL (32.0-36.0) L Red Cell Distribution Width 15.3 % (11.6-14.8) H Platelet Count 101 K/UL (150-450) L Mean Platelet Volume 8.3 FL (6.5-10.1) Neutrophils (%) (Auto) 74.8 % (45.0-75.0) Lymphocytes (%) (Auto) 13.7 % (20.0-45.0) L Monocytes (%) (Auto) 9.3 % (1.0-10.0) Eosinophils (%) (Auto) 1.9 % (0.0-3.0) Basophils (%) (Auto) 0.4 % (0.0-2.0) Sodium Level 147 MMOL/L (136-145) H Potassium Level 4.6 MMOL/L (3.5-5.1) Chloride Level 119 MMOL/L (98-107) H Carbon Dioxide Level 20 MMOL/L (21-32) L Anion Gap 8 mmol/L (5-15) Blood Urea Nitrogen 35 mg/dL (7-18) H Creatinine 1.4 MG/DL (0.55-1.30) H Estimat Glomerular Filtration Rate 50.1 mL/min (>60) Glucose Level 81 MG/DL (74-106) Calcium Level 8.7 MG/DL (8.5-10.1) Total Bilirubin 0.2 MG/DL (0.2-1.0) Aspartate Amino Transf (AST/SGOT) 50 U/L (15-37) H Alanine Aminotransferase (ALT/SGPT) 55 U/L (12-78) Alkaline Phosphatase 202 U/L (46-116) H Pro-B-Type Natriuretic Peptide 11538 pg/mL (0-125) H Total Protein 5.9 G/DL (6.4-8.2) L Albumin 1.9 G/DL (3.4-5.0) L Globulin 4.0 g/dL Albumin/Globulin Ratio 0.5 (1.0-2.7) L Random Amikacin Level 5.5 ug/mL Current Medications Medications (Trade) Dose Ordered Sig/Wanda Route PRN Reason Start Time Stop Time Status Last Admin Dose Admin Acetaminophen (Tylenol) 650 mg Q4H PRN GT fever (temp>100.5F) 06/19/19 04:00 07/14/19 03:59 Albuterol/ Ipratropium (Albuterol/ Ipratropium) 3 ml Q4H PRN HHN Shortness of Breath 06/19/19 06:30 06/19/19 14:29 Amikacin Protocol (Amikacin pharmacy to dose) 1 ea DAILY PRN MISC PER RX PROTOCOL 06/19/19 09:00 07/14/19 16:44 Amikacin Sulfate 500 mg/Sodium Chloride 112 ml @ 224 mls/hr ONCE ONCE IV 06/20/19 09:00 06/20/19 09:29 Chlorhexidine Gluconate (Jasmin-Hex 2%) 1 applic DAILY@2000 TOPIC 06/19/19 20:00 07/15/19 19:59 Dextrose 1,000 ml @ 50 mls/hr Q20H IV 06/19/19 03:15 07/18/19 12:59 06/19/19 03:52 Ertapenem 1 gm/ Sodium Chloride 55 ml @ 110 mls/hr Q24H IV 06/19/19 21:00 06/21/19 20:59 Heparin Sodium (Porcine) (Heparin 5000 units/ml) 5,000 units EVERY 12 HOURS SUBQ 06/19/19 09:00 07/14/19 20:59 06/19/19 10:06 Lansoprazole (Prevacid) 30 mg BID GT 06/19/19 18:00 07/19/19 17:59 Levothyroxine Sodium (Synthroid) 75 mcg DAILY@0630 GT 06/20/19 06:30 07/20/19 06:29 Lorazepam (Ativan 2mg/ml 1ml) 2 mg Q2H PRN IV For Anxiety 06/19/19 04:30 06/21/19 14:29 Metoclopramide HCl (Reglan) 5 mg EVERY 6 HOURS NG 06/19/19 12:00 07/19/19 11:59 06/19/19 12:27 Midodrine (Pro-Amatine) 2.5 mg THREE TIMES A DAY GT 06/19/19 13:00 07/17/19 12:59 Ondansetron HCl (Zofran) 4 mg Q6H PRN IVP Nausea & Vomiting 06/19/19 08:30 07/14/19 14:29 Polyethylene Glycol (Miralax) 17 gm DAILYPRN PRN GT Constipation 06/19/19 14:30 07/14/19 14:29 Vancomycin HCl (Vanco rx to dose) 1 ea DAILY PRN MISC Per rx protocol 06/19/19 09:00 07/18/19 11:59 Vancomycin HCl 750 mg/Sodium Chloride 275 ml @ 183.333 mls/hr Q12H IVPB 06/19/19 14:00 06/24/19 01:59 Lisy Lai M.D. Jun 19, 2019 13:07
[2019-06-19] MEDS ORDERED: Vancomycin 750 MG in NS 275 ML IVPB SCH (14:00)
--- NOTE | 2019-06-19 14:00 | NUR ---
NURSE NOTES: Patient was turned and repositioned. Patient was kept clean and dry. VSS. No distress noted.
[2019-06-19] MEDS ORDERED: Miralax 17gm pkt GT PRN (14:30)
--- NOTE | 2019-06-19 14:38 | Surgery Progress Note ---
Surgery Progress Note Subjective Procedure Performed right subclavian central venous catheter insertion Additional Comments No acute events. Out of ICU downgraded to SDU. No nausea vomiting fever chills. Labs noted. Exam stable. Objective Last 24 Hour Vital Signs Date Time Temp Pulse Resp B/P (MAP) Pulse Ox O2 Delivery O2 Flow Rate FiO2 06/19/19 13:31 95 16 35 06/19/19 13:30 94 17 98 Mechanical Ventilator 35 06/19/19 12:00 99 06/19/19 12:00 97.2 96 18 133/61 (85) 99 06/19/19 12:00 35 06/19/19 12:00 Mechanical Ventilator 06/19/19 11:23 9 16 35 06/19/19 09:39 96 06/19/19 08:52 97 17 35 06/19/19 08:00 35 06/19/19 08:00 97.5 94 20 156/61 (92) 95 06/19/19 08:00 Mechanical Ventilator 06/19/19 06:51 96 17 35 06/19/19 05:13 6 16 35 06/19/19 04:00 Mechanical Ventilator 06/19/19 04:00 98.0 94 16 137/88 (104) 98 06/19/19 04:00 91 06/19/19 04:00 35 06/19/19 03:02 92 18 35 06/19/19 03:00 91 17 116/71 (86) 99 06/19/19 02:00 89 15 122/98 (106) 100 06/19/19 01:04 89 17 35 06/19/19 01:00 89 17 134/82 (99) 100 06/19/19 00:00 Mechanical Ventilator 06/19/19 00:00 98.4 88 15 108/84 (92) 100 06/18/19 23:35 79 06/18/19 23:02 89 23 35 06/18/19 23:00 93 16 105/81 (89) 99 06/18/19 22:00 92 16 117/69 (85) 99 06/18/19 21:21 91 16 35 06/18/19 21:00 92 16 109/79 (89) 100 06/18/19 21:00 92 118/63 06/18/19 20:00 35 06/18/19 20:00 98.4 93 14 157/70 (99) 100 06/18/19 20:00 Mechanical Ventilator 06/18/19 19:49 92 06/18/19 19:03 91 16 35 06/18/19 19:00 90 17 118/75 (89) 99 06/18/19 18:00 112/79 06/18/19 18:00 88 16 112/79 (90) 99 06/18/19 17:25 97 20 35 06/18/19 17:00 95 16 114/63 (80) 99 06/18/19 16:00 Mechanical Ventilator 06/18/19 16:00 90 06/18/19 16:00 98.7 93 16 105/69 (81) 100 06/18/19 16:00 35 06/18/19 15:08 89 15 35 06/18/19 15:00 91 16 105/70 (82) 100 I&O Intake and Output 06/18/19 06/19/19 19:00 07:00 Intake Total 1605 ml 1090 ml Output Total 436 ml 560 ml Balance 1169 ml 530 ml Intake Free Water 250 ml IV Total 875 ml 610 ml Tube Feeding 420 ml 480 ml Other 60 ml Output Urine Total 435 ml 560 ml Stool Total 1 ml Dressing: dry Wound: other Drains: other Cardiovascular: RSR Respiratory: decreased breath sounds Abdomen: soft, present bowel sounds, non-distended Extremities: no tenderness, no cyanosis Laboratory Tests Test 06/19/19 04:00 White Blood Count 9.0 K/UL (4.8-10.8) Red Blood Count 3.18 M/UL (4.70-6.10) L Hemoglobin 8.7 G/DL (14.2-18.0) L Hematocrit 27.8 % (42.0-52.0) L Mean Corpuscular Volume 87 FL (80-99) Mean Corpuscular Hemoglobin 27.2 PG (27.0-31.0) Mean Corpuscular Hemoglobin Concent 31.1 G/DL (32.0-36.0) L Red Cell Distribution Width 15.3 % (11.6-14.8) H Platelet Count 101 K/UL (150-450) L Mean Platelet Volume 8.3 FL (6.5-10.1) Neutrophils (%) (Auto) 74.8 % (45.0-75.0) Lymphocytes (%) (Auto) 13.7 % (20.0-45.0) L Monocytes (%) (Auto) 9.3 % (1.0-10.0) Eosinophils (%) (Auto) 1.9 % (0.0-3.0) Basophils (%) (Auto) 0.4 % (0.0-2.0) Sodium Level 147 MMOL/L (136-145) H Potassium Level 4.6 MMOL/L (3.5-5.1) Chloride Level 119 MMOL/L (98-107) H Carbon Dioxide Level 20 MMOL/L (21-32) L Anion Gap 8 mmol/L (5-15) Blood Urea Nitrogen 35 mg/dL (7-18) H Creatinine 1.4 MG/DL (0.55-1.30) H Estimat Glomerular Filtration Rate 50.1 mL/min (>60) Glucose Level 81 MG/DL (74-106) Calcium Level 8.7 MG/DL (8.5-10.1) Total Bilirubin 0.2 MG/DL (0.2-1.0) Aspartate Amino Transf (AST/SGOT) 50 U/L (15-37) H Alanine Aminotransferase (ALT/SGPT) 55 U/L (12-78) Alkaline Phosphatase 202 U/L (46-116) H Pro-B-Type Natriuretic Peptide 47068 pg/mL (0-125) H Total Protein 5.9 G/DL (6.4-8.2) L Albumin 1.9 G/DL (3.4-5.0) L Globulin 4.0 g/dL Albumin/Globulin Ratio 0.5 (1.0-2.7) L Random Amikacin Level 5.5 ug/mL Plan Problems: (1) Severe protein-calorie malnutrition Assessment & Plan: DAILY ESTIMATED NEEDS: Needs based on Critical care, underweight 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 * Swallowing difficulty R/T respiratory status as evidenced by pt vent dep via trach, PEG dep. ENTERAL NUTRITION RECOMMENDATIONS: Nepro @45mL/hr x 22hr to provide 990mL, 1782kcal, 80g pro, 720mL free water -When Hemodynamically stable, start Nepro @ 15mL/hr for 6 hrs. -Advance as tolerated 10mL q 4-6 hrs to goal. -TF @goal meets 100% est needs. -Flush per MD/ HOB >30 degrees. ADDITIONAL RECOMMENDATIONS: * Calibrated bedscale weight for accurate CBW + weekly wt monitoring * Per SNF: Ht of 6'1", Wt 125# (05/2019) * TF recs as above when medically stable * Monitor for cont'd need of renal formula (K 5.5) * Monitor lytes and hydration status. (2) Feeding by G-tube (3) Respiratory failure, [id number] (4) Septic shock Assessment & Plan: hypotensive - improved tachycardic - improved labs as above improving will follow with recs thank you (5) Severe sepsis Quirino Bernard Jun 19, 2019 14:38
--- NOTE | 2019-06-19 15:42 | NUR ---
NURSE NOTES: Patient resting in bed comfortably. No distress noted. SR noted. Patient was turned and repositioned q2hrs. Patient tolerating tube feeding. HOB kept elevated. Bed alarm on. will continue to monitor.
--- NOTE | 2019-06-19 16:01 | Hematology/Onc Progress Note ---
Assessment/Plan Assessment/Plan ASSESSMENT AND RECOMMENDATIONS # Anemia of chronic disease due to underlying chronic medical issues, multifactorial --> Anemia w/u has been ordered and reviewed and c/w acd ferritin 635, tibc 160 --> No evidence of hemolysis is noted, peripheral smear has been reviewed. --> Hgb goal >7. Transfuse prn. --> Epogen or iron at this time is not particularly indicated --> unable to obtain cosent, with no family --> r/o hemolysis as well --> hgb 7.5-->8->8.7 # Leukocytosis. Likely related to underlying infection versus reactive process. patient with septic shock on admission --> Peripheral has been reviewed and no abnml cells noted at moment --> Medications have been reviewed --> Imaging has been reviewed. CXR shows Suboptimal positioning. No interval consolidation, overt edema or other acute cardiopulmonary findings. --> ++uti on cultures provedencia --> Has been started on abx, empiric treatment (ertap/vanc) --> wbc is 36-->26k-->9k # Thrombocytopenia decreased since admission --> plt count 190-->123k-->101k --> abx for id # Septic shock poa --> on abx per id # Upper GI vomiting bleed in prior admission --> currently appears to have resolved # Trach and PEG. --> chronic # Hyperkalemia --> as per renal # Dvt ppx heparin sq The timing of this note does not necessarily reflect the time of the patient was seen. Greatly appreciate consultation. Subjective Constitutional: Denies: no symptoms, chills, fever, malaise, weakness, other HEENT: Denies: no symptoms, eye pain, blurred vision, tearing, double vision, ear pain, ear discharge, nose pain, nose congestion, throat pain, throat swelling, mouth pain, mouth swelling, other Cardiovascular: Denies: no symptoms, chest pain, edema, irregular heart rate, lightheadedness, palpitations, syncope, other Respiratory: Denies: no symptoms, cough, shortness of breath, SOB with excertion, SOB at rest, sputum, wheezing, other Gastrointestinal/Abdominal: Denies: no symptoms, abdomen distended, abdominal pain, black stools, tarry stools, blood in stool, constipated, diarrhea, difficulty swallowing, nausea, poor appetite, poor fluid intake, rectal bleeding , vomiting, other Genitourinary: Denies: no symptoms, burning, discharge, frequency, flank pain, hematuria, incontinence, pain, urgency, other Endocrine: Denies: no symptoms, excessive sweating, flushing, intolerance to cold, intolerance to heat, increased hunger, increased thirst, increased urine, unexplained weight gain, unexplained weight loss, other Allergies: Coded Allergies: NO KNOWN DRUG ALLERGIES (Verified Allergy, Unknown, 09/11/16) Subjective 06/17: blood transfusion completed, on low dose pressors, no bleeding noted 06/19: liya rn, no major events, cbc reviewed, tube feeds ongoing Objective Objective Current Medications Medications (Trade) Dose Ordered Sig/Wanda Route PRN Reason Start Time Stop Time Status Last Admin Dose Admin Acetaminophen (Tylenol) 650 mg Q4H PRN GT fever (temp>100.5F) 06/19/19 04:00 07/14/19 03:59 Amikacin Protocol (Amikacin pharmacy to dose) 1 ea DAILY PRN MISC PER RX PROTOCOL 06/19/19 09:00 07/14/19 16:44 Amikacin Sulfate 500 mg/Sodium Chloride 112 ml @ 224 mls/hr ONCE ONCE IV 06/20/19 09:00 06/20/19 09:29 Chlorhexidine Gluconate (Jasmin-Hex 2%) 1 applic DAILY@2000 TOPIC 06/19/19 20:00 07/15/19 19:59 Dextrose 1,000 ml @ 50 mls/hr Q20H IV 06/19/19 03:15 07/18/19 12:59 06/19/19 03:52 Ertapenem 1 gm/ Sodium Chloride 55 ml @ 110 mls/hr Q24H IV 06/19/19 21:00 06/21/19 20:59 Heparin Sodium (Porcine) (Heparin 5000 units/ml) 5,000 units EVERY 12 HOURS SUBQ 06/19/19 09:00 07/14/19 20:59 06/19/19 10:06 Lansoprazole (Prevacid) 30 mg BID GT 06/19/19 18:00 07/19/19 17:59 Levothyroxine Sodium (Synthroid) 75 mcg DAILY@0630 GT 06/20/19 06:30 07/20/19 06:29 Lorazepam (Ativan 2mg/ml 1ml) 2 mg Q2H PRN IV For Anxiety 06/19/19 04:30 06/21/19 14:29 Metoclopramide HCl (Reglan) 5 mg EVERY 6 HOURS NG 06/19/19 12:00 07/19/19 11:59 06/19/19 12:27 Midodrine (Pro-Amatine) 2.5 mg THREE TIMES A DAY GT 06/19/19 13:00 07/17/19 12:59 Ondansetron HCl (Zofran) 4 mg Q6H PRN IVP Nausea & Vomiting 06/19/19 08:30 07/14/19 14:29 Polyethylene Glycol (Miralax) 17 gm DAILYPRN PRN GT Constipation 06/19/19 14:30 07/14/19 14:29 Vancomycin HCl (Vanco rx to dose) 1 ea DAILY PRN MISC Per rx protocol 06/19/19 09:00 07/18/19 11:59 Vancomycin HCl 750 mg/Sodium Chloride 275 ml @ 183.333 mls/hr Q12H IVPB 06/19/19 14:00 06/24/19 01:59 06/19/19 13:34 Last 24 Hour Vital Signs Date Time Temp Pulse Resp B/P (MAP) Pulse Ox O2 Delivery O2 Flow Rate FiO2 06/19/19 14:56 99 16 35 06/19/19 13:31 95 16 35 06/19/19 13:30 94 17 98 Mechanical Ventilator 35 06/19/19 12:00 99 06/19/19 12:00 97.2 96 18 133/61 (85) 99 06/19/19 12:00 35 06/19/19 12:00 Mechanical Ventilator 06/19/19 11:23 9 16 35 06/19/19 09:39 96 06/19/19 08:52 97 17 35 06/19/19 08:00 35 06/19/19 08:00 97.5 94 20 156/61 (92) 95 06/19/19 08:00 Mechanical Ventilator 06/19/19 06:51 96 17 35 06/19/19 05:13 6 16 35 06/19/19 04:00 Mechanical Ventilator 06/19/19 04:00 98.0 94 16 137/88 (104) 98 06/19/19 04:00 91 06/19/19 04:00 35 06/19/19 03:02 92 18 35 06/19/19 03:00 91 17 116/71 (86) 99 06/19/19 02:00 89 15 122/98 (106) 100 06/19/19 01:04 89 17 35 06/19/19 01:00 89 17 134/82 (99) 100 06/19/19 00:00 Mechanical Ventilator 06/19/19 00:00 98.4 88 15 108/84 (92) 100 06/18/19 23:35 79 06/18/19 23:02 89 23 35 06/18/19 23:00 93 16 105/81 (89) 99 06/18/19 22:00 92 16 117/69 (85) 99 06/18/19 21:21 91 16 35 06/18/19 21:00 92 16 109/79 (89) 100 06/18/19 21:00 92 118/63 06/18/19 20:00 35 06/18/19 20:00 98.4 93 14 157/70 (99) 100 06/18/19 20:00 Mechanical Ventilator 06/18/19 19:49 92 06/18/19 19:03 91 16 35 06/18/19 19:00 90 17 118/75 (89) 99 06/18/19 18:00 112/79 06/18/19 18:00 88 16 112/79 (90) 99 06/18/19 17:25 97 20 35 06/18/19 17:00 95 16 114/63 (80) 99 06/18/19 16:00 Mechanical Ventilator 06/18/19 16:00 90 06/18/19 16:00 98.7 93 16 105/69 (81) 100 06/18/19 16:00 35 06/18/19 15:08 89 15 35 06/18/19 15:00 91 16 105/70 (82) 100 06/18/19 14:00 88 16 105/60 (75) 99 06/18/19 13:00 88 18 35 06/18/19 13:00 94 16 118/87 (97) 99 06/18/19 12:00 93 06/18/19 12:00 98.7 93 18 100/59 (73) 99 06/18/19 12:00 Mechanical Ventilator 06/18/19 12:00 35 06/18/19 11:07 88 16 35 06/18/19 11:00 93 18 116/59 (78) 99 06/18/19 10:00 95 16 118/59 (78) 100 06/18/19 09:06 92 15 35 06/18/19 09:00 93 16 105/57 (73) 100 06/18/19 08:37 94 06/18/19 08:00 95 16 102/77 (85) 100 06/18/19 08:00 35 06/18/19 08:00 Mechanical Ventilator 06/18/19 07:00 98.4 85 15 98/46 (63) 100 06/18/19 06:46 86 14 35 06/18/19 06:00 85 16 96/54 (68) 97 06/18/19 05:30 92 18 35 06/18/19 05:00 94 16 102/52 (69) 97 06/18/19 04:00 Mechanical Ventilator 06/18/19 04:00 35 06/18/19 04:00 93 06/18/19 04:00 99.4 93 16 105/60 (75) 97 06/18/19 03:09 96 18 35 06/18/19 03:00 93 16 104/54 (71) 97 06/18/19 02:00 96 18 103/57 (72) 99 06/18/19 01:00 95 18 99/84 (89) 99 06/18/19 00:35 97 18 35 06/18/19 00:00 92 06/18/19 00:00 Mechanical Ventilator 06/18/19 00:00 98.6 95 16 100/52 (68) 99 06/18/19 00:00 35 06/17/19 23:00 93 16 99/52 (68) 99 06/17/19 22:35 94 18 35 06/17/19 22:00 96 17 96/53 (67) 99 06/17/19 21:10 96 16 35 06/17/19 21:00 96 17 120/55 (76) 99 06/17/19 21:00 96 95/57 06/17/19 20:00 100 06/17/19 20:00 35 06/17/19 20:00 Mechanical Ventilator 06/17/19 20:00 98.0 95 19 97/55 (69) 100 06/17/19 19:04 88 21 35 06/17/19 18:00 90 17 95/57 (70) 99 06/17/19 17:17 95/56 06/17/19 17:02 89 20 35 06/17/19 17:00 83 11 95/53 (67) 98 Intake and Output 06/18/19 06/19/19 19:00 07:00 Intake Total 1605 ml 1090 ml Output Total 436 ml 560 ml Balance 1169 ml 530 ml Intake Free Water 250 ml IV Total 875 ml 610 ml Tube Feeding 420 ml 480 ml Other 60 ml Output Urine Total 435 ml 560 ml Stool Total 1 ml Labs Test 06/17/19 05:45 06/18/19 05:00 06/19/19 04:00 White Blood Count 9.2 K/UL (4.8-10.8) 9.0 K/UL (4.8-10.8) 9.0 K/UL (4.8-10.8) Red Blood Count 2.92 M/UL (4.70-6.10) 2.98 M/UL (4.70-6.10) 3.18 M/UL (4.70-6.10) Hemoglobin 8.0 G/DL (14.2-18.0) 8.2 G/DL (14.2-18.0) 8.7 G/DL (14.2-18.0) Hematocrit 25.2 % (42.0-52.0) 26.0 % (42.0-52.0) 27.8 % (42.0-52.0) Mean Corpuscular Volume 86 FL (80-99) 87 FL (80-99) 87 FL (80-99) Mean Corpuscular Hemoglobin 27.4 PG (27.0-31.0) 27.5 PG (27.0-31.0) 27.2 PG (27.0-31.0) Mean Corpuscular Hemoglobin Concent 31.8 G/DL (32.0-36.0) 31.6 G/DL (32.0-36.0) 31.1 G/DL (32.0-36.0) Red Cell Distribution Width 15.5 % (11.6-14.8) 15.6 % (11.6-14.8) 15.3 % (11.6-14.8) Platelet Count 80 K/UL (150-450) 95 K/UL (150-450) 101 K/UL (150-450) Mean Platelet Volume 8.3 FL (6.5-10.1) 8.1 FL (6.5-10.1) 8.3 FL (6.5-10.1) Neutrophils (%) (Auto) % (45.0-75.0) % (45.0-75.0) 74.8 % (45.0-75.0) Lymphocytes (%) (Auto) % (20.0-45.0) % (20.0-45.0) 13.7 % (20.0-45.0) Monocytes (%) (Auto) % (1.0-10.0) % (1.0-10.0) 9.3 % (1.0-10.0) Eosinophils (%) (Auto) % (0.0-3.0) % (0.0-3.0) 1.9 % (0.0-3.0) Basophils (%) (Auto) % (0.0-2.0) % (0.0-2.0) 0.4 % (0.0-2.0) Differential Total Cells Counted 100 100 Neutrophils % (Manual) 82 % (45-75) 78 % (45-75) Lymphocytes % (Manual) 11 % (20-45) 11 % (20-45) Monocytes % (Manual) 5 % (1-10) 7 % (1-10) Eosinophils % (Manual) 2 % (0-3) 0 % (0-3) Basophils % (Manual) 0 % (0-2) 0 % (0-2) Band Neutrophils 0 % (0-8) 4 % (0-8) Nucleated Red Blood Cells 1 /100 WBC Platelet Estimate Decreased Decreased Platelet Morphology Normal Normal Anisocytosis 1+ 1+ Acanthocytes 1+ Erythrocyte Sedimentation Rate 80 MM/HR (0-20) Sodium Level 141 MMOL/L (136-145) 146 MMOL/L (136-145) 147 MMOL/L (136-145) Potassium Level 4.2 MMOL/L (3.5-5.1) 4.2 MMOL/L (3.5-5.1) 4.6 MMOL/L (3.5-5.1) Chloride Level 116 MMOL/L (98-107) 119 MMOL/L (98-107) 119 MMOL/L (98-107) Carbon Dioxide Level 15 MMOL/L (21-32) 17 MMOL/L (21-32) 20 MMOL/L (21-32) Anion Gap 10 mmol/L (5-15) 10 mmol/L (5-15) 8 mmol/L (5-15) Blood Urea Nitrogen 31 mg/dL (7-18) 32 mg/dL (7-18) 35 mg/dL (7-18) Creatinine 1.4 MG/DL (0.55-1.30) 1.4 MG/DL (0.55-1.30) 1.4 MG/DL (0.55-1.30) Estimat Glomerular Filtration Rate 50.1 mL/min (>60) 50.1 mL/min (>60) 50.1 mL/min (>60) Glucose Level 107 MG/DL (74-106) 82 MG/DL (74-106) 81 MG/DL (74-106) Uric Acid 5.4 MG/DL (2.6-7.2) Calcium Level 8.6 MG/DL (8.5-10.1) 8.8 MG/DL (8.5-10.1) 8.7 MG/DL (8.5-10.1) Phosphorus Level 3.5 MG/DL (2.5-4.9) 3.5 MG/DL (2.5-4.9) Magnesium Level 2.3 MG/DL (1.8-2.4) 2.4 MG/DL (1.8-2.4) Total Bilirubin 0.2 MG/DL (0.2-1.0) 0.2 MG/DL (0.2-1.0) 0.2 MG/DL (0.2-1.0) Aspartate Amino Transf (AST/SGOT) 47 U/L (15-37) 50 U/L (15-37) 50 U/L (15-37) Alanine Aminotransferase (ALT/SGPT) 55 U/L (12-78) 59 U/L (12-78) 55 U/L (12-78) Alkaline Phosphatase 194 U/L (46-116) 206 U/L (46-116) 202 U/L (46-116) C-Reactive Protein, Quantitative 28.4 mg/dL (0.00-0.90) 15.2 mg/dL (0.00-0.90) Pro-B-Type Natriuretic Peptide 58671 pg/mL (0-125) 20100 pg/mL (0-125) 55927 pg/mL (0-125) Total Protein 5.5 G/DL (6.4-8.2) 5.7 G/DL (6.4-8.2) 5.9 G/DL (6.4-8.2) Albumin 1.8 G/DL (3.4-5.0) 1.9 G/DL (3.4-5.0) 1.9 G/DL (3.4-5.0) Globulin 3.7 g/dL 3.8 g/dL 4.0 g/dL Albumin/Globulin Ratio 0.5 (1.0-2.7) 0.5 (1.0-2.7) 0.5 (1.0-2.7) Cortisol AM Sample 12.5 UG/DL Random Amikacin Level 4.8 ug/mL 10.2 ug/mL 5.5 ug/mL Height (Feet): 5 Height (Inches): 8.00 Weight (Pounds): 151 Objective PHYSICAL EXAMINATION: VITAL SIGNS: Have been reviewed HEENT: Trach/vent site ++ CHEST: Bibasilar rales CV: Regular rate and rhythm. GI: Positive bowel sounds. G-tube++ EXTREMITIES: + edema. NEUROLOGICAL: The patient does not follow neurological exam. Reflexes equal on both sides. No organomegaly. Nikos Nath MD Jun 19, 2019 16:01
[2019-06-19] MEDS ORDERED: Norepinephrine Bitartrate 8 MG in D5W 500ml 492 ML IV SCH (18:00)
--- NOTE | 2019-06-19 18:30 | NUR ---
NURSE NOTES: Patient noted with redness and blisters around G-tube site. Dressing changed. wound care protocol initiated. Dr. Viveros made aware. Dr. Wilson and Dr. Daniels to see the patient.
--- NOTE | 2019-06-19 19:30 | NUR ---
NURSE NOTES: Received the patient from ODILAI Seaman. Patient is asleep, easily arousable to ltouch, non-verbal. Patient on trach to vent, Portex 8, AC 16, TV 600, FIO2 35%. O2 96%. No apparent distress. SR noted on compliance monitor. G-tube intact, running Glucerna 1.5 at 40ml/hr. No residual noted. HOB kept elevated. Right subclavian TLC intact, running D5W at 50ml/hr. Victor cath intact, draining yellow urine by gravity. P200 mattress in place. Skin intact. Bed in lowest position, locked, side rails upx3, padded. Bed alarm on. Call light within reach. Will continue to monitor.
--- NOTE | 2019-06-19 19:30 | NUR ---
HAND-OFF: Report given to ODILIA Guerrero.
[2019-06-19] MEDS ORDERED: Dyna-Hex 2% Top Sol 2oz TOPIC SCH (20:00)
[2019-06-19] MEDS ORDERED: Phenylephrine 50 MG in D5W 245 ML IV SCH (21:00)
[2019-06-19] MEDS: Ertapenem 1 GM in NS 55 ML IV SCH (21:20)
[2019-06-20] VITALS: BP 135/76
[2019-06-20 01:17] LABS: HEMATOCRIT 25.8 % (42.0-52.0); HEMOGLOBIN 8.2 G/DL (14.2-18.0); MEAN CORPUSCULAR VOLUME 86 FL (80-99); PLATELET COUNT 95 K/UL (150-450); RED BLOOD COUNT 2.98 M/UL (4.70-6.10); RED CELL DISTRIBUTION WIDTH 15.5 % (11.6-14.8); WHITE BLOOD COUNT 11.4 K/UL (4.8-10.8)
[2019-06-20 01:24] LABS: ANION GAP 8 mmol/L (5-15); BLOOD UREA NITROGEN 34 mg/dL (7-18); CALCIUM 8.4 MG/DL (8.5-10.1); CARBON DIOXIDE 20 MMOL/L (21-32); CHLORIDE 117 MMOL/L (98-107); CREATININE 1.5 MG/DL (0.55-1.30); POTASSIUM 5.1 MMOL/L (3.5-5.1); SODIUM 145 MMOL/L (136-145)
[2019-06-20] MEDS: Metoclopramide 10mg/10ml Liq NG SCH ×5 (02:15→23:17)
[2019-06-20 04:00] VITALS: BP 109/76
--- NOTE | 2019-06-20 04:00 | NUR ---
NURSE NOTES: Patient remain asleep, easily arousable to touch. Aphasic. No apparent distress. SR noted on bus driver/monitor. Bed in lowest position, locked, side rails upx3, padded. Bed alarm on. Call light within reach. No significant changes. Will continue POC.
--- NOTE | 2019-06-20 06:30 | NUR ---
RESPIRATORY NOTE: Received pt on vent with current vent settings: AC 16-600ml-35%-no peep. Pt is vent dependent with trach Portex cuffed size 8.0, secured with trach ties and trach guard. Pt opens eyes but unable to follow commands, no SOB or resp distress noted. Bari rhonchi breath sounds heard upon auscultation, suctioned small amount of thick owens yellow secretion without incidents. Alarms are set and audible, vent is plugged into the red outlet, ambu bag and spare trach kit at bedside. Vent circuits and suction tubing are secured and out of the way. Will continue to monitor pt.
--- NOTE | 2019-06-20 07:30 | NUR ---
NURSE NOTES: Pt received from Cesar Menendez RN in stable condition with no cardiopulmonary distress noted. Pt is awake in bed, trache to vent, non verbal, Portex 8, AC 16 TV 600 FiO2 35% (no Peep- confirmed with Dr. Keating). GT noted running Glucerna 1.5 at 40cc/hr. Redness noted around GT site (Left message for Dr. Wilson and Jim- awaiting call back). F/C noted draining yellow urine. Pt has a R subclavian TLC. Bed in lowest position, alarm on, side rails up x2 and padded per seizure precaution, call light within reach. Will continue to monitor.
[2019-06-20 08:00] VITALS: BP 153/72
[2019-06-20] MEDS: Heparin 5000 units/ml inj SUBQ SCH ×2 (08:42→20:31)
--- NOTE | 2019-06-20 08:43 | NUR ---
NURSE NOTES: Late entry (correct time 0800) Received call back from Dr. Wilson stating he is aware and no new orders regarding GT site.
[2019-06-20] MEDS ORDERED: Amikacin 500 MG in NS 110 ML IV ONE (09:00)
--- NOTE | 2019-06-20 09:09 | General Progress Note ---
Assessment/Plan Problem List: (1) Diabetes ICD Codes: E11.9 - Type 2 diabetes mellitus without complications SNOMED: 88596006 (2) HTN (hypertension) ICD Codes: I10 - Essential (primary) hypertension SNOMED: 14018884 (3) CVA (cerebral vascular accident) ICD Codes: I63.9 - Cerebral infarction, unspecified SNOMED: 885555229 (4) Severe protein-calorie malnutrition ICD Codes: E43 - Unspecified severe protein-calorie malnutrition SNOMED: 345113484 (5) Feeding by G-tube ICD Codes: Z93.1 - Gastrostomy status SNOMED: 917425304, 511568940 (6) Respiratory failure, [id number] ICD Codes: J96.20 - Respiratory failure, [id number] SNOMED: 17499738 (7) Anemia ICD Codes: D64.9 - Anemia, unspecified SNOMED: 633330430 (8) Chronic respiratory failure ICD Codes: J96.10 - Chronic respiratory failure, unspecified whether with hypoxia or hypercapnia SNOMED: 33247948 (9) Septic shock ICD Codes: A41.9 - Sepsis, unspecified organism; R65.21 - Severe sepsis with septic shock SNOMED: 79476782 (10) Alzheimer's dementia ICD Codes: G30.9 - Alzheimer's disease, unspecified SNOMED: 21050240 (11) Severe sepsis ICD Codes: A41.9 - Sepsis, unspecified organism; R65.20 - Severe sepsis without septic shock SNOMED: 14506864 (12) Hypothyroidism ICD Codes: E03.9 - Hypothyroidism, unspecified SNOMED: 35314569 Status: unchanged Assessment/Plan: vent abx wean pressor cbc bmp am ltach eval Subjective Constitutional: Reports: weakness Allergies: Coded Allergies: NO KNOWN DRUG ALLERGIES (Verified Allergy, Unknown, 09/11/16) All Systems: reviewed and negative except above Subjective trach vent altered Objective Last 24 Hour Vital Signs Date Time Temp Pulse Resp B/P (MAP) Pulse Ox O2 Delivery O2 Flow Rate FiO2 06/20/19 08:00 74 06/20/19 08:00 35 06/20/19 06:30 80 16 35 06/20/19 05:29 92 20 35 06/20/19 04:00 Mechanical Ventilator 06/20/19 04:00 91 06/20/19 04:00 98.0 89 20 109/76 (87) 100 06/20/19 03:34 35 06/20/19 02:35 89 18 35 06/20/19 01:29 88 19 35 06/20/19 00:00 92 06/20/19 00:00 Mechanical Ventilator 06/20/19 00:00 35 06/20/19 00:00 98.7 90 17 135/76 (95) 100 06/19/19 23:29 89 21 35 06/19/19 21:20 90 16 35 35 06/19/19 20:00 Mechanical Ventilator 06/19/19 20:00 35 06/19/19 20:00 95 06/19/19 20:00 99.2 95 18 135/75 (95) 100 06/19/19 19:01 94 19 35 35 06/19/19 17:30 97 19 35 06/19/19 16:00 98 06/19/19 16:00 Mechanical Ventilator 06/19/19 16:00 35 06/19/19 16:00 97.7 95 20 116/62 (80) 97 06/19/19 14:56 99 16 35 06/19/19 13:31 95 16 35 06/19/19 13:30 94 17 98 Mechanical Ventilator 35 06/19/19 12:00 99 06/19/19 12:00 97.2 96 18 133/61 (85) 99 06/19/19 12:00 35 06/19/19 12:00 Mechanical Ventilator 06/19/19 11:23 9 16 35 06/19/19 09:39 96 Intake and Output 06/19/19 06/20/19 18:59 06:59 Intake Total 1484.000 ml 1320 ml Output Total 600 ml 1000 ml Balance 884.000 ml 320 ml Intake Free Water 130 ml 150 ml IV Total 874.000 ml 650 ml Tube Feeding 480 ml 520 ml Output Urine Total 600 ml 1000 ml # Bowel Movements 1 Laboratory Tests 06/20/19 01:00: White Blood Count 11.4H, Red Blood Count 2.98L, Hemoglobin 8.2L, Hematocrit 25.8L, Mean Corpuscular Volume 86, Mean Corpuscular Hemoglobin 27.5, Mean Corpuscular Hemoglobin Concent 31.8L, Red Cell Distribution Width 15.5H, Platelet Count 95L, Mean Platelet Volume 8.1, Neutrophils (%) (Auto) , Lymphocytes (%) (Auto) , Monocytes (%) (Auto) , Eosinophils (%) (Auto) , Basophils (%) (Auto) , Sodium Level 145, Potassium Level 5.1, Chloride Level 117H, Carbon Dioxide Level 20L, Anion Gap 8, Blood Urea Nitrogen 34H, Creatinine 1.5H, Estimat Glomerular Filtration Rate 46.3, Glucose Level 102, Calcium Level 8.4L, Vancomycin Level Trough 34.3H Height (Feet): 5 Height (Inches): 8.00 Weight (Pounds): 155 General Appearance: lethargic EENT: normal ENT inspection Neck: normal alignment Cardiovascular: normal peripheral pulses, normal rate, regular rhythm Respiratory/Chest: chest wall non-tender, lungs clear, normal breath sounds Abdomen: normal bowel sounds, non tender, soft Extremities: normal inspection Edema: no edema noted Arm (L), no edema noted Arm (R), no edema noted Leg (L), no edema noted Leg (R), no edema noted Pedal (L), no edema noted Pedal (R), no edema noted Generalized Neurologic: motor weakness Skin: normal pigmentation, warm/dry Gato Viveros DO Jun 20, 2019 09:09
--- NOTE | 2019-06-20 09:10 | NUR ---
NURSE NOTES: Dr Daisy Viveros at the bedside evaluating the patient. Obtained an order for PICC Line placement, Dr Daisy Viveros signed due to pt has no family members available.Iona HARTLEY primary nurse made aware of the plan.
--- NOTE | 2019-06-20 09:14 | NUR ---
NURSE NOTES: Dr. Viveros at bedside and is aware of redness around GT site. Ivonne also at bedside assessing patient's skin. No new orders.
[2019-06-20] MEDS ORDERED: Lidocaine 1% Plain 30 ml INJ SCH ×2 (09:15→11:00)
--- NOTE | 2019-06-20 10:33 | NUR ---
RD ASSESSMENT & RECOMMENDATIONS SEE CARE ACTIVITY FOR COMPLETE ASSESSMENT DAILY ESTIMATED NEEDS: Needs based on Critical care, underweight TF [employer] 56.8 30-35 kcals/kg 0093-7740 total kcals 1.2-2 g protein/kg 68-114 g total protein 25-30 mL/kg 6233-2198 total fluid mLs NUTRITION DIAGNOSIS: * Increased kcal/prot intake needs R/T sepsis and underweight status as evidenced by pt adm w/ critically elev WBC (35.7*-> wnl-> back up 11.4), now afebrile, @ 68% Norris Body Weight. * Swallowing difficulty R/T respiratory status as evidenced by pt vent dep via trach, PEG dep. CURRENT TF:Glucerna 1.5 @ 40ml/hr x 22 hrs (held 1 hr before and after Synthroid) ENTERAL NUTRITION RECOMMENDATIONS: Osmolite 1.5 @ 55ml/hr x 22 hrs to provide 1210ml, 1815kcal, 76g prot, 922ml free water - Rec TF change to [employer] TF of Osmolite 1.5 (no indication for carb controlled TF at this time, K content high on Glucerna 1.5, previously elev K, now wnl but trending up -> K 5.1 today) - Initiate Osmolite 1.5 @ 35ml/hr x 6 hrs, advance 10ml q 4-6 hrs as tolerated to goal rate. - Flush per MD/ HOB >30 degrees. - Hold 1 hr before and after Synthroid med ADDITIONAL RECOMMENDATIONS: * Calibrated bedscale weight for accurate CBW + weekly wt monitoring * Per SNF: Ht of 6'1", Wt 125# (05/2019) * Monitor lytes closely, replete as needed (K elev upon adm, monitor closely, need for TF change: K 5.1 today) * Monitor BGs closely w/ TF . .
--- NOTE | 2019-06-20 10:57 | NUR ---
NURSE NOTES: Late Entry (Correct time 0800): Dr. Nath came in to see pt and is aware of PLT level today. Parameters to hold heparin noted (Hold for PLT<75). Per Dr Nath, administer morning dose of heparin.
[2019-06-20] MEDS ORDERED: Heparin1,000 units/500ml Premix(Conc:2 units/ml) IV SCH (11:00)
[2019-06-20 12:00] VITALS: BP 147/70
--- NOTE | 2019-06-20 12:14 | Nephrology Progress Note ---
Assessment/Plan Problem List: (1) Septic shock (2) Hypothyroidism (3) Upper GI bleed (4) Respiratory failure, [id number] (5) Anemia Assessment Sepsis Shock on pressors GI Bleed Low Na and high K UTI HypoThyroidism Tracheostomy dependence Respiratory failure, [id number] Alzheimer's Feeding by G-tube Plan off pressors- On Midodrine On GT feeding On Reglan fluid challenge as needed adjust IV fluids transfuse as needed Monitor lytes and renal parametrs urine studies per orders Subjective ROS Limited/Unobtainable: Yes Objective Objective Last 24 Hour Vital Signs Date Time Temp Pulse Resp B/P (MAP) Pulse Ox O2 Delivery O2 Flow Rate FiO2 06/20/19 11:03 77 16 35 06/20/19 08:33 81 16 35 06/20/19 08:00 96.8 82 16 153/72 (99) 100 06/20/19 08:00 Mechanical Ventilator 06/20/19 08:00 74 06/20/19 08:00 35 06/20/19 06:30 80 16 35 06/20/19 05:29 92 20 35 06/20/19 04:00 Mechanical Ventilator 06/20/19 04:00 91 06/20/19 04:00 98.0 89 20 109/76 (87) 100 06/20/19 03:34 35 06/20/19 02:35 89 18 35 06/20/19 01:29 88 19 35 06/20/19 00:00 92 06/20/19 00:00 Mechanical Ventilator 06/20/19 00:00 35 06/20/19 00:00 98.7 90 17 135/76 (95) 100 06/19/19 23:29 89 21 35 06/19/19 21:20 90 16 35 35 06/19/19 20:00 Mechanical Ventilator 06/19/19 20:00 35 06/19/19 20:00 95 06/19/19 20:00 99.2 95 18 135/75 (95) 100 06/19/19 19:01 94 19 35 35 06/19/19 17:30 97 19 35 06/19/19 16:00 98 06/19/19 16:00 Mechanical Ventilator 06/19/19 16:00 35 06/19/19 16:00 97.7 95 20 116/62 (80) 97 06/19/19 14:56 99 16 35 06/19/19 13:31 95 16 35 06/19/19 13:30 94 17 98 Mechanical Ventilator 35 Intake and Output 06/19/19 06/20/19 18:59 06:59 Intake Total 1484.000 ml 1320 ml Output Total 600 ml 1000 ml Balance 884.000 ml 320 ml Intake Free Water 130 ml 150 ml IV Total 874.000 ml 650 ml Tube Feeding 480 ml 520 ml Output Urine Total 600 ml 1000 ml # Bowel Movements 1 Current Medications Medications (Trade) Dose Ordered Sig/Wanda Route PRN Reason Start Time Stop Time Status Last Admin Dose Admin Acetaminophen (Tylenol) 650 mg Q4H PRN GT fever (temp>100.5F) 06/19/19 04:00 07/14/19 03:59 Amikacin Protocol (Amikacin pharmacy to dose) 1 ea DAILY PRN MISC PER RX PROTOCOL 06/19/19 09:00 07/14/19 16:44 Chlorhexidine Gluconate (Jasmin-Hex 2%) 1 applic DAILY@2000 TOPIC 06/20/19 20:00 07/20/19 19:59 Dextrose 1,000 ml @ 50 mls/hr Q20H IV 06/19/19 03:15 07/18/19 12:59 06/19/19 17:12 Ertapenem 1 gm/ Sodium Chloride 55 ml @ 110 mls/hr Q24H IV 06/19/19 21:00 06/25/19 20:59 06/19/19 21:20 Heparin Sodium (Porcine) (Heparin 5000 units/ml) 5,000 units EVERY 12 HOURS SUBQ 06/19/19 09:00 07/14/19 20:59 06/20/19 08:42 Heparin Sodium/ Sodium Chloride (Heparin 1000 units/500ml Premix) 1,000 unit ONCE IV 06/20/19 11:00 06/20/19 14:00 Lansoprazole (Prevacid) 30 mg BID GT 06/19/19 18:00 07/19/19 17:59 06/20/19 08:35 Levothyroxine Sodium (Synthroid) 75 mcg DAILY@0630 GT 06/20/19 06:30 07/20/19 06:29 06/20/19 06:22 Lidocaine HCl (Xylocaine 1% 30ml) 30 ml ONCE INJ 06/20/19 11:00 06/20/19 14:00 Lorazepam (Ativan 2mg/ml 1ml) 2 mg Q2H PRN IV For Anxiety 06/19/19 04:30 06/21/19 14:29 Metoclopramide HCl (Reglan) 5 mg EVERY 6 HOURS NG 06/19/19 12:00 07/19/19 11:59 06/20/19 06:22 Midodrine (Pro-Amatine) 2.5 mg THREE TIMES A DAY GT 06/19/19 13:00 07/17/19 12:59 Ondansetron HCl (Zofran) 4 mg Q6H PRN IVP Nausea & Vomiting 06/19/19 08:30 07/14/19 14:29 Polyethylene Glycol (Miralax) 17 gm DAILYPRN PRN GT Constipation 06/19/19 14:30 07/14/19 14:29 Vancomycin HCl (Vanco rx to dose) 1 ea DAILY PRN MISC Per rx protocol 06/19/19 09:00 07/18/19 11:59 Laboratory Tests 06/20/19 01:00: White Blood Count 11.4H, Red Blood Count 2.98L, Hemoglobin 8.2L, Hematocrit 25.8L, Mean Corpuscular Volume 86, Mean Corpuscular Hemoglobin 27.5, Mean Corpuscular Hemoglobin Concent 31.8L, Red Cell Distribution Width 15.5H, Platelet Count 95L, Mean Platelet Volume 8.1, Neutrophils (%) (Auto) , Lymphocytes (%) (Auto) , Monocytes (%) (Auto) , Eosinophils (%) (Auto) , Basophils (%) (Auto) , Sodium Level 145, Potassium Level 5.1, Chloride Level 117H, Carbon Dioxide Level 20L, Anion Gap 8, Blood Urea Nitrogen 34H, Creatinine 1.5H, Estimat Glomerular Filtration Rate 46.3, Glucose Level 102, Calcium Level 8.4L, Vancomycin Level Trough 34.3H 06/20/19 11:30: Amikacin Level Peak [Pending] Height (Feet): 5 Height (Inches): 8.00 Weight (Pounds): 155 General Appearance: no apparent distress Neck: other - trach Respiratory/Chest: decreased breath sounds Abdomen: distended Sav Salvador MD Jun 20, 2019 12:14
--- NOTE | 2019-06-20 12:22 | NUR ---
NURSE NOTES: Per Dr Wilson, hold Reglan dose.
--- NOTE | 2019-06-20 13:03 | GI Initial Consult Note ---
History of Present Illness General Date patient seen: Jun 20, 2019 Time patient seen: 12:56 Reason for Hospitalization: General Complaint Referring physician: WEN HICKS Reason for Consultation: GTUBE SITE CELLULITIS Present Illness HPI Patient presents by paramedics for reports of low blood pressure and bradycardia patient is from nursing facility and chronically debilitated with Tracheostomy and Ventilator dependence. Patient himself is nonverbal this does limit the history of present illness significantly there was no reports of vomiting or diarrhea GI consulted for GT site cellulitis and reported melena. ROS limited, patient nonverbal and is bedbound. Patient is a known to us from previous admission status post multiple endoscopy diagnosed with severe esophagitis in the past, last endoscopy was performed May 2018. Patient presents today with a hemoglobin 8.2 hematocrit 25.8, WBC 11.4. Abdomen was assessed, soft, mild distention, noted G-tube site cellulitis with erythema, no purulent drainage noted, tender to touch. Home Meds Reported Medications Lansoprazole* (LANSOPRAZOLE*) 30 Mg Capsule.dr, 30 MG GT BID, CAP 06/16/19 Levothyroxine Sodium* (LEVOTHYROXINE SODIUM*) 75 Mcg Tablet, 75 MCG GT DAILY, TAB Take in the morning on an empty stomach, at least 30 minutes before food. 06/16/19 Ferrous Sulfate (Ferrous Sulfate) 300 Mg/5 Ml Liquid, 7.5 ML GT THREE TIMES A DAY for ANEMIA, ML 04/06/19 Ascorbic Acid* (VITAMIN C*) 500 Mg Tablet, 500 MG GT DAILY, TAB 0 Refills 04/06/19 Cranberry Extract (CRANBERRY) 425 Mg Capsule, 425 MG GT BID, CAP 02/15/19 Docusate Sodium* (DOCUSATE SODIUM*) 100 Mg Capsule, 100 MG GT DAILY for HOLD FOR LBM, CAP 04/14/17 Multivitamin Liquid* (MULTI-DELYN*) 237 Ml Liquid, 15 ML GT DAILY, ML 04/14/17 Acetaminophen (Acetaminophen) 650 Mg/20.3 Ml Soln, 640 MG GT Q4HR PRN for Prn Headache/Temp > 101, ML 0 Refills 01/19/16 Discontinued Reported Medications Levothyroxine Sodium* (SYNTHROID*) 150 Mcg Tablet, 150 MCG GT DAILY, TAB Take in the morning on an empty stomach, at least 30 minutes before food. 04/06/19 Acetaminophen* (ACETAMINOPHEN*) 160 Mg/5 Ml Liquid, 640 MG GT Q4HR PRN for For Pain, ML 04/06/19 Sucralfate (Sucralfate) 1 Gm/10 Ml Oral.susp, 10 ML GT FOUR TIMES A DAY, EA 04/06/19 Polyethylene Glycol 3350* (MIRALAX*) 17 Gm Powd.pack, 17 GM ORAL DAILY, PACKET 02/16/19 Med list reviewed/reconciled: Yes Allergies: Coded Allergies: NO KNOWN DRUG ALLERGIES (Verified Allergy, Unknown, 09/11/16) Patient History PMH Narrative Limited by: medical condition Past Medical History: see triage record Reviewed Nursing Documentation: PMH: Agreed; PSxH: Agreed Nursing Documentation-PMH Hx Cardiac Problems: Yes Hx Hypertension: Yes Hx Pacemaker: No Hx Asthma: No - hypothyroidism Hx COPD: No - vent dependent Hx Diabetes: Yes - type 2 Hx Cancer: No Hx Gastrointestinal Problems: Yes - Gastrostomy Tube Hx Dialysis: Yes Hx Neurological Problems: Yes Hx Cerebrovascular Accident: Yes Hx Transient Ischemic Attacks: Yes Hx Dementia: Yes Hx Alzheimer's Disease: Yes Hx Parkinson's Disease: Yes Hx Encephalitis: Yes Hx Seizures: Yes Hx Epilepsy: Yes Hx Paralysis: Yes - HEMIPLEGIA Hx Memory Loss: Yes Hx Concentration Difficulty: Yes Hx Speech Problem: Yes Hx Aphasia: Yes Hx Weakness: Yes Hx Fatigue: Yes Hx Neurologic Surgery: No Hx Brain Shunt: No Review of Systems All Other Systems: limited Physical Exam Vital Signs Date Time Temp Pulse Resp B/P (MAP) Pulse Ox O2 Delivery O2 Flow Rate FiO2 06/16/19 07:00 77 19 92/51 (65) 100 06/16/19 07:00 35 06/16/19 07:30 94.6 06/16/19 08:00 Mechanical Ventilator Sp02 EP Interpretation: reviewed Labs Laboratory Tests Test 06/20/19 01:00 06/20/19 11:30 White Blood Count 11.4 K/UL (4.8-10.8) H Red Blood Count 2.98 M/UL (4.70-6.10) L Hemoglobin 8.2 G/DL (14.2-18.0) L Hematocrit 25.8 % (42.0-52.0) L Mean Corpuscular Volume 86 FL (80-99) Mean Corpuscular Hemoglobin 27.5 PG (27.0-31.0) Mean Corpuscular Hemoglobin Concent 31.8 G/DL (32.0-36.0) L Red Cell Distribution Width 15.5 % (11.6-14.8) H Platelet Count 95 K/UL (150-450) L Mean Platelet Volume 8.1 FL (6.5-10.1) Neutrophils (%) (Auto) % (45.0-75.0) Lymphocytes (%) (Auto) % (20.0-45.0) Monocytes (%) (Auto) % (1.0-10.0) Eosinophils (%) (Auto) % (0.0-3.0) Basophils (%) (Auto) % (0.0-2.0) Sodium Level 145 MMOL/L (136-145) Potassium Level 5.1 MMOL/L (3.5-5.1) Chloride Level 117 MMOL/L (98-107) H Carbon Dioxide Level 20 MMOL/L (21-32) L Anion Gap 8 mmol/L (5-15) Blood Urea Nitrogen 34 mg/dL (7-18) H Creatinine 1.5 MG/DL (0.55-1.30) H Estimat Glomerular Filtration Rate 46.3 mL/min (>60) Glucose Level 102 MG/DL (74-106) Calcium Level 8.4 MG/DL (8.5-10.1) L Vancomycin Level Trough 34.3 ug/mL (5.0-12.0) H Amikacin Level Peak 24.5 ug/mL (25.0-35.0) L General Appearance: no apparent distress Head: normocephalic EENT: normal ENT inspection Neck: supple Respiratory: other - Trach dependent, regular rate and rhythm Gastrointestinal: gt Current Medications Current Medications Medications (Trade) Dose Ordered Sig/Wanda Route PRN Reason Start Time Stop Time Status Last Admin Dose Admin Acetaminophen (Tylenol) 650 mg Q4H PRN GT fever (temp>100.5F) 06/19/19 04:00 07/14/19 03:59 Amikacin Protocol (Amikacin pharmacy to dose) 1 ea DAILY PRN MISC PER RX PROTOCOL 06/19/19 09:00 07/14/19 16:44 Chlorhexidine Gluconate (Jasmin-Hex 2%) 1 applic DAILY@1999 TOPIC 06/20/19 20:00 11/10/19 19:59 Dextrose 1,000 ml @ 50 mls/hr Q20H IV 06/19/19 03:15 07/18/19 12:59 06/19/19 17:12 Ertapenem 1 gm/ Sodium Chloride 55 ml @ 110 mls/hr Q24H IV 06/19/19 21:00 06/25/19 20:59 06/19/19 21:20 Heparin Sodium (Porcine) (Heparin 5000 units/ml) 5,000 units EVERY 12 HOURS SUBQ 06/19/19 09:00 07/14/19 20:59 06/20/19 08:42 Heparin Sodium/ Sodium Chloride (Heparin 1000 units/500ml Premix) 1,000 unit ONCE IV 06/20/19 11:00 06/20/19 14:00 Lansoprazole (Prevacid) 30 mg BID GT 06/19/19 18:00 07/19/19 17:59 06/20/19 08:35 Levothyroxine Sodium (Synthroid) 75 mcg DAILY@0630 GT 06/20/19 06:30 07/20/19 06:29 06/20/19 06:22 Lidocaine HCl (Xylocaine 1% 30ml) 30 ml ONCE INJ 06/20/19 11:00 06/20/19 14:00 Lorazepam (Ativan 2mg/ml 1ml) 2 mg Q2H PRN IV For Anxiety 06/19/19 04:30 06/21/19 14:29 Metoclopramide HCl (Reglan) 5 mg EVERY 6 HOURS NG 06/19/19 12:00 07/19/19 11:59 06/20/19 06:22 Midodrine (Pro-Amatine) 2.5 mg THREE TIMES A DAY GT 06/19/19 13:00 07/17/19 12:59 Ondansetron HCl (Zofran) 4 mg Q6H PRN IVP Nausea & Vomiting 06/19/19 08:30 07/14/19 14:29 Polyethylene Glycol (Miralax) 17 gm DAILYPRN PRN GT Constipation 06/19/19 14:30 07/14/19 14:29 Vancomycin HCl (Vanco rx to dose) 1 ea DAILY PRN MISC Per rx protocol 06/19/19 09:00 07/18/19 11:59 GI: Plan Problems: (1) Upper GI bleed (2) Alzheimer's dementia (3) GT SITE LEAKING (4) Severe erosive esophagitis (5) Anemia (6) Severe protein-calorie malnutrition (7) Feeding by G-tube Plan This is a 68-year-old male patient known to us from previous admissions status post multiple endoscopies diagnosed with severe esophagitis presents today with reported a G-tube site cellulitis, G-tube site malfunction and reported melena. Plan for possible endoscopy next Sunday to evaluate anemia and melena. Hold all blood thinners a day prior to the procedure PPI twice daily plus Carafate To monitor H&H, PRN transfusions GT site care, zinc oxide daily for GT site cellulitis Follow-up wound care recommendations Possible bedside G-tube change versus PEG if the G-tube retention ring continues to be dislodged will follow along with additional recommendations Discussed with Dr. Wilson. Thank you for this patient referral, we will follow. The patient was seen and examined at bedside and all new and available data was reviewed in the patients chart. I agree with the above findings, impression and plan. (Patient seen earlier today. Signature stamp does not reflect patient encounter time.). - MD Sangita Cerna,[facility] [employer] Jun 20, 2019 13:03
--- NOTE | 2019-06-20 13:07 | Infectious Diseases Prog Note ---
Assessment/Plan Assessment/Plan Mr. Huffman is a 68 yo male with PMHx of of chronic resp failure trach/vent dependant, diffuse ulcerative esophagitis, peptic esophageal stricture, asthma, GERD, Dm2, CVA/TIA w/ hemiplegia, functional quadriplegia, CAD, CHF, ESBL UTI , GIB s/p multiple EGDs in the past, schizoaffective disorder, Dementia, hypothyroidism, malnutrition, non verbal, infected obstuctive ureterolithiasis/ w abscess s/p L NT palced 12/2018, encephalopathy, Alzheimer's disease, multiple admissions, subacute facility resident who was sent to the for hypotension and bradycardia. Septic Shock- likely 2ry to UTI and PNA- off pressors now off perssors now Hx of resistant infections Urine Cx 06/14/19 - >100k ESBL P, stuarti, ESBL P mirabilis (both S Ertapenem , ZOsyn) Blood Cx - NTD CXR show probable pna sp cx p Leukocytosis; SP Hypothermia; SP Chronic resp failure trach/vent dependant asthma Dm2 CVA/TIA w/ hemiplegia Functional quadriplegia CAD CHF GIB s/p multiple EGDs in the past Schizoaffective disorder Dementia Hypothyroidism Non verbal Alzheimer's disease PLAN: - Continue Amikacin #6/7 and Ertapenem #6/7-10and IV Vancomycin #6/7-10 pending sp Cx -06/17 SP PO Vancomycin #3 -06/16 SP Flagyl #2 - monitor CBC and Temps - f/u sp cx Thank you for this consult. [facility] will continue to follow the patient with you during this hospitalization. Subjective Allergies: Coded Allergies: NO KNOWN DRUG ALLERGIES (Verified Allergy, Unknown, 09/11/16) Subjective afebrile no leukocytosis sp cx still not collected Objective Vital Signs Last 24 Hour Vital Signs Date Time Temp Pulse Resp B/P (MAP) Pulse Ox O2 Delivery O2 Flow Rate FiO2 06/20/19 11:03 77 16 35 06/20/19 08:33 81 16 35 06/20/19 08:00 96.8 82 16 153/72 (99) 100 06/20/19 08:00 Mechanical Ventilator 06/20/19 08:00 74 06/20/19 08:00 35 06/20/19 06:30 80 16 35 06/20/19 05:29 92 20 35 06/20/19 04:00 Mechanical Ventilator 06/20/19 04:00 91 06/20/19 04:00 98.0 89 20 109/76 (87) 100 06/20/19 03:34 35 06/20/19 02:35 89 18 35 06/20/19 01:29 88 19 35 06/20/19 00:00 92 06/20/19 00:00 Mechanical Ventilator 06/20/19 00:00 35 06/20/19 00:00 98.7 90 17 135/76 (95) 100 06/19/19 23:29 89 21 35 06/19/19 21:20 90 16 35 35 06/19/19 20:00 Mechanical Ventilator 06/19/19 20:00 35 06/19/19 20:00 95 06/19/19 20:00 99.2 95 18 135/75 (95) 100 06/19/19 19:01 94 19 35 35 06/19/19 17:30 97 19 35 06/19/19 16:00 98 06/19/19 16:00 Mechanical Ventilator 06/19/19 16:00 35 06/19/19 16:00 97.7 95 20 116/62 (80) 97 06/19/19 14:56 99 16 35 06/19/19 13:31 95 16 35 06/19/19 13:30 94 17 98 Mechanical Ventilator 35 Height (Feet): 5 Height (Inches): 8.00 Weight (Pounds): 155 Objective Gen: On vent in IVU HEENT: NCAT, MMM, PERRL, No Oral lesion, no scleral icterus NECK: supple, No LAD, No JVD, Trached LUNGS: Coarse B/L, No W/C CARDS: RRR, S1, S2, No M/R/G, ABD: Soft, NT, ND, No R/G, + BS, No HSM, No Masses, PEG : Deferred Ext: C/C/E, Pulses 2+ B/L (DP, Rad): NEURO: A/O x 0, no following SKIN: Warm/dry, No rashes Laboratory Tests Test 06/20/19 01:00 06/20/19 11:30 White Blood Count 11.4 K/UL (4.8-10.8) H Red Blood Count 2.98 M/UL (4.70-6.10) L Hemoglobin 8.2 G/DL (14.2-18.0) L Hematocrit 25.8 % (42.0-52.0) L Mean Corpuscular Volume 86 FL (80-99) Mean Corpuscular Hemoglobin 27.5 PG (27.0-31.0) Mean Corpuscular Hemoglobin Concent 31.8 G/DL (32.0-36.0) L Red Cell Distribution Width 15.5 % (11.6-14.8) H Platelet Count 95 K/UL (150-450) L Mean Platelet Volume 8.1 FL (6.5-10.1) Neutrophils (%) (Auto) % (45.0-75.0) Lymphocytes (%) (Auto) % (20.0-45.0) Monocytes (%) (Auto) % (1.0-10.0) Eosinophils (%) (Auto) % (0.0-3.0) Basophils (%) (Auto) % (0.0-2.0) Sodium Level 145 MMOL/L (136-145) Potassium Level 5.1 MMOL/L (3.5-5.1) Chloride Level 117 MMOL/L (98-107) H Carbon Dioxide Level 20 MMOL/L (21-32) L Anion Gap 8 mmol/L (5-15) Blood Urea Nitrogen 34 mg/dL (7-18) H Creatinine 1.5 MG/DL (0.55-1.30) H Estimat Glomerular Filtration Rate 46.3 mL/min (>60) Glucose Level 102 MG/DL (74-106) Calcium Level 8.4 MG/DL (8.5-10.1) L Vancomycin Level Trough 34.3 ug/mL (5.0-12.0) H Amikacin Level Peak 24.5 ug/mL (25.0-35.0) L Current Medications Medications (Trade) Dose Ordered Sig/Wanda Route PRN Reason Start Time Stop Time Status Last Admin Dose Admin Acetaminophen (Tylenol) 650 mg Q4H PRN GT fever (temp>100.5F) 06/19/19 04:00 07/14/19 03:59 Amikacin Protocol (Amikacin pharmacy to dose) 1 ea DAILY PRN MISC PER RX PROTOCOL 06/19/19 09:00 11/4/19 16:44 Chlorhexidine Gluconate (Jasmin-Hex 2%) 1 applic DAILY@2000 TOPIC 06/20/19 20:00 07/20/19 19:59 Dextrose 1,000 ml @ 50 mls/hr Q20H IV 06/19/19 03:15 07/18/19 12:59 06/19/19 17:12 Ertapenem 1 gm/ Sodium Chloride 55 ml @ 110 mls/hr Q24H IV 06/19/19 21:00 06/25/19 20:59 06/19/19 21:20 Heparin Sodium (Porcine) (Heparin 5000 units/ml) 5,000 units EVERY 12 HOURS SUBQ 06/19/19 09:00 07/14/19 20:59 06/20/19 08:42 Heparin Sodium/ Sodium Chloride (Heparin 1000 units/500ml Premix) 1,000 unit ONCE IV 06/20/19 11:00 06/20/19 14:00 Lansoprazole (Prevacid) 30 mg BID GT 06/19/19 18:00 07/19/19 17:59 06/20/19 08:35 Levothyroxine Sodium (Synthroid) 75 mcg DAILY@0630 GT 06/20/19 06:30 07/20/19 06:29 06/20/19 06:22 Lidocaine HCl (Xylocaine 1% 30ml) 30 ml ONCE INJ 06/20/19 11:00 06/20/19 14:00 Lorazepam (Ativan 2mg/ml 1ml) 2 mg Q2H PRN IV For Anxiety 06/19/19 04:30 06/21/19 14:29 Metoclopramide HCl (Reglan) 5 mg EVERY 6 HOURS NG 06/19/19 12:00 07/19/19 11:59 06/20/19 06:22 Midodrine (Pro-Amatine) 2.5 mg THREE TIMES A DAY GT 06/19/19 13:00 07/17/19 12:59 Ondansetron HCl (Zofran) 4 mg Q6H PRN IVP Nausea & Vomiting 06/19/19 08:30 07/14/19 14:29 Polyethylene Glycol (Miralax) 17 gm DAILYPRN PRN GT Constipation 06/19/19 14:30 07/14/19 14:29 Vancomycin HCl (Vanco rx to dose) 1 ea DAILY PRN MISC Per rx protocol 06/19/19 09:00 07/18/19 11:59 Lisy Lai M.D. Jun 20, 2019 13:07
[2019-06-20] MEDS ORDERED: Vancomycin 1gm in D5W 275ml IVPB SCH (14:00)
--- NOTE | 2019-06-20 14:22 | NUR ---
NURSE NOTES:WOUND CARE NOTES:Pt presents with contractures. Skin erosions to abdominal region, and multiple areas of non-blanching erythema. Skin erosion noted to abdomen extending around GT and mostly to L abdominal area, skin is grossly red and excoriated. Furuncle noted to L flank oozing moderate amt purulent exudate. Non-blanchable erythema without fluctuance noted to L lateral malleolus (L)1.5cm x (W)3cm. Non-blanchable erythema without fluctuance noted to lateral L foot (L)1cm x (W)1cm. Non-blanchable erythema noted to sacral cleft. No other skin concerns noted. Tx.Plan:Apply ZInc Oxide Paste to GT site and excoriated areas on abd daily and prn. Apply Betadine to Boil L flank Daily .Cover with Optifoam drsg. Change daily and prn. Apply Moisture Barrier Paste to sacrum. Cover with Optifoam drsg. Change every 3 days and prn. Apply Cavilon to Non-blanchable areas L foot and bilat heels. Cover each site with Optifoam drsg. Change every 7 days and prn. Reposition at least every 2hours or as tolerated. Place pillow between knees. Off-load heels with pillow. APM/RENO Mattress overlay.
--- NOTE | 2019-06-20 14:30 | Hematology/Onc Progress Note ---
Assessment/Plan Assessment/Plan ASSESSMENT AND RECOMMENDATIONS # Anemia of chronic disease due to underlying chronic medical issues, multifactorial --> Anemia w/u has been reviewed and c/w acd ferritin 635, tibc 160 --> No evidence of hemolysis is noted, peripheral smear has been reviewed. --> Hgb goal >7. Transfuse prn. --> Epogen or iron at this time is not particularly indicated --> unable to obtain cosent, with no family --> r/o hemolysis as well --> hgb 7.5-->8->8.7->8.2 --> ENDOSCOPY SUNDAY potentially # Leukocytosis. Likely related to underlying infection versus reactive process. patient with septic shock on admission --> Peripheral has been reviewed and no abnml cells noted at moment --> Medications have been reviewed --> Imaging has been reviewed. CXR shows Suboptimal positioning. No interval consolidation, overt edema or other acute cardiopulmonary findings. --> ++uti on cultures provedencia --> Has been started on abx, empiric treatment (ertap/vanc) --> wbc is 36-->26k-->9k # Thrombocytopenia decreased since admission --> plt count 190-->123k-->101k-->95k --> abx for id # Septic shock poa --> on abx per id # Upper GI vomiting bleed in prior admission --> currently appears to have resolved # Trach and PEG. --> chronic # Hyperkalemia --> as per renal # Dvt ppx heparin sq The timing of this note does not necessarily reflect the time of the patient was seen. Greatly appreciate consultation. Subjective HEENT: Denies: no symptoms, eye pain, blurred vision, tearing, double vision, ear pain, ear discharge, nose pain, nose congestion, throat pain, throat swelling, mouth pain, mouth swelling, other Cardiovascular: Denies: no symptoms, chest pain, edema, irregular heart rate, lightheadedness, palpitations, syncope, other Respiratory: Denies: no symptoms, cough, shortness of breath, SOB with excertion, SOB at rest, sputum, wheezing, other Gastrointestinal/Abdominal: Denies: no symptoms, abdomen distended, abdominal pain, black stools, tarry stools, blood in stool, constipated, diarrhea, difficulty swallowing, nausea, poor appetite, poor fluid intake, rectal bleeding , vomiting, other Genitourinary: Denies: no symptoms, burning, discharge, frequency, flank pain, hematuria, incontinence, pain, urgency, other Neurologic/Psychiatric: Denies: no symptoms, anxiety, depressed, emotional problems, headache, numbness, paresthesia, pre-existing deficit, seizure, tingling, tremors, weakness, other Endocrine: Denies: no symptoms, excessive sweating, flushing, intolerance to cold, intolerance to heat, increased hunger, increased thirst, increased urine, unexplained weight gain, unexplained weight loss, other Allergies: Coded Allergies: NO KNOWN DRUG ALLERGIES (Verified Allergy, Unknown, 09/11/16) Subjective 06/17: blood transfusion completed, on low dose pressors, no bleeding noted 06/19: liya rn, no major events, cbc reviewed, tube feeds ongoing Objective Objective Current Medications Medications (Trade) Dose Ordered Sig/Wanda Route PRN Reason Start Time Stop Time Status Last Admin Dose Admin Acetaminophen (Tylenol) 650 mg Q4H PRN GT fever (temp>100.5F) 06/19/19 04:00 07/14/19 03:59 Amikacin Protocol (Amikacin pharmacy to dose) 1 ea DAILY PRN MISC PER RX PROTOCOL 06/19/19 09:00 07/14/19 16:44 Chlorhexidine Gluconate (Jasmin-Hex 2%) 1 applic DAILY@2000 TOPIC 06/20/19 20:00 07/20/19 19:59 Dextrose 1,000 ml @ 50 mls/hr Q20H IV 06/19/19 03:15 07/18/19 12:59 06/19/19 17:12 Ertapenem 1 gm/ Sodium Chloride 55 ml @ 110 mls/hr Q24H IV 06/19/19 21:00 06/25/19 20:59 06/19/19 21:20 Heparin Sodium (Porcine) (Heparin 5000 units/ml) 5,000 units EVERY 12 HOURS SUBQ 06/19/19 09:00 07/14/19 20:59 06/20/19 08:42 Lansoprazole (Prevacid) 30 mg BID GT 06/19/19 18:00 07/19/19 17:59 06/20/19 08:35 Levothyroxine Sodium (Synthroid) 75 mcg DAILY@0630 GT 06/20/19 06:30 07/20/19 06:29 06/20/19 06:22 Lorazepam (Ativan 2mg/ml 1ml) 2 mg Q2H PRN IV For Anxiety 06/19/19 04:30 06/21/19 14:29 Metoclopramide HCl (Reglan) 5 mg EVERY 6 HOURS NG 06/19/19 12:00 07/19/19 11:59 06/20/19 06:22 Midodrine (Pro-Amatine) 2.5 mg THREE TIMES A DAY GT 06/19/19 13:00 07/17/19 12:59 Ondansetron HCl (Zofran) 4 mg Q6H PRN IVP Nausea & Vomiting 06/19/19 08:30 07/14/19 14:29 Polyethylene Glycol (Miralax) 17 gm DAILYPRN PRN GT Constipation 06/19/19 14:30 07/14/19 14:29 Vancomycin HCl (Vanco rx to dose) 1 ea DAILY PRN MISC Per rx protocol 06/19/19 09:00 07/18/19 11:59 Zinc Oxide (Zinc Oxide) 1 applic DAILY TOPIC 06/21/19 09:00 07/21/19 08:59 Last 24 Hour Vital Signs Date Time Temp Pulse Resp B/P (MAP) Pulse Ox O2 Delivery O2 Flow Rate FiO2 06/20/19 12:31 80 16 35 06/20/19 12:00 35 06/20/19 11:03 77 16 35 06/20/19 08:33 81 16 35 06/20/19 08:00 96.8 82 16 153/72 (99) 100 06/20/19 08:00 Mechanical Ventilator 06/20/19 08:00 74 06/20/19 08:00 35 06/20/19 06:30 80 16 35 06/20/19 05:29 92 20 35 06/20/19 04:00 Mechanical Ventilator 06/20/19 04:00 91 06/20/19 04:00 98.0 89 20 109/76 (87) 100 06/20/19 03:34 35 06/20/19 02:35 89 18 35 06/20/19 01:29 88 19 35 06/20/19 00:00 92 06/20/19 00:00 Mechanical Ventilator 06/20/19 00:00 35 06/20/19 00:00 98.7 90 17 135/76 (95) 100 06/19/19 23:29 89 21 35 06/19/19 21:20 90 16 35 35 06/19/19 20:00 Mechanical Ventilator 06/19/19 20:00 35 06/19/19 20:00 95 06/19/19 20:00 99.2 95 18 135/75 (95) 100 06/19/19 19:01 94 19 35 35 06/19/19 17:30 97 19 35 06/19/19 16:00 98 06/19/19 16:00 Mechanical Ventilator 06/19/19 16:00 35 06/19/19 16:00 97.7 95 20 116/62 (80) 97 06/19/19 14:56 99 16 35 06/19/19 13:31 95 16 35 06/19/19 13:30 94 17 98 Mechanical Ventilator 35 06/19/19 12:00 99 06/19/19 12:00 97.2 96 18 133/61 (85) 99 06/19/19 12:00 35 06/19/19 12:00 Mechanical Ventilator 06/19/19 11:23 9 16 35 06/19/19 09:39 96 06/19/19 08:52 97 17 35 06/19/19 08:00 35 06/19/19 08:00 97.5 94 20 156/61 (92) 95 06/19/19 08:00 Mechanical Ventilator 06/19/19 06:51 96 17 35 06/19/19 05:13 6 16 35 06/19/19 04:00 Mechanical Ventilator 06/19/19 04:00 98.0 94 16 137/88 (104) 98 06/19/19 04:00 91 06/19/19 04:00 35 06/19/19 03:02 92 18 35 06/19/19 03:00 91 17 116/71 (86) 99 06/19/19 02:00 89 15 122/98 (106) 100 06/19/19 01:04 89 17 35 06/19/19 01:00 89 17 134/82 (99) 100 06/19/19 00:00 Mechanical Ventilator 06/19/19 00:00 98.4 88 15 108/84 (92) 100 06/18/19 23:35 79 06/18/19 23:02 89 23 35 06/18/19 23:00 93 16 105/81 (89) 99 06/18/19 22:00 92 16 117/69 (85) 99 06/18/19 21:21 91 16 35 06/18/19 21:00 92 16 109/79 (89) 100 06/18/19 21:00 92 118/63 06/18/19 20:00 35 06/18/19 20:00 98.4 93 14 157/70 (99) 100 06/18/19 20:00 Mechanical Ventilator 06/18/19 19:49 92 06/18/19 19:03 91 16 35 06/18/19 19:00 90 17 118/75 (89) 99 06/18/19 18:00 112/79 06/18/19 18:00 88 16 112/79 (90) 99 06/18/19 17:25 97 20 35 06/18/19 17:00 95 16 114/63 (80) 99 06/18/19 16:00 Mechanical Ventilator 06/18/19 16:00 90 06/18/19 16:00 98.7 93 16 105/69 (81) 100 06/18/19 16:00 35 06/18/19 15:08 89 15 35 06/18/19 15:00 91 16 105/70 (82) 100 Intake and Output 06/19/19 06/20/19 19:00 07:00 Intake Total 1524.000 ml 1330 ml Output Total 600 ml 1000 ml Balance 924.000 ml 330 ml Intake Free Water 130 ml 200 ml IV Total 874.000 ml 650 ml Tube Feeding 520 ml 480 ml Output Urine Total 600 ml 1000 ml # Bowel Movements 1 Labs Test 06/18/19 05:00 06/19/19 04:00 06/20/19 01:00 06/20/19 11:30 White Blood Count 9.0 K/UL (4.8-10.8) 9.0 K/UL (4.8-10.8) 11.4 K/UL (4.8-10.8) Red Blood Count 2.98 M/UL (4.70-6.10) 3.18 M/UL (4.70-6.10) 2.98 M/UL (4.70-6.10) Hemoglobin 8.2 G/DL (14.2-18.0) 8.7 G/DL (14.2-18.0) 8.2 G/DL (14.2-18.0) Hematocrit 26.0 % (42.0-52.0) 27.8 % (42.0-52.0) 25.8 % (42.0-52.0) Mean Corpuscular Volume 87 FL (80-99) 87 FL (80-99) 86 FL (80-99) Mean Corpuscular Hemoglobin 27.5 PG (27.0-31.0) 27.2 PG (27.0-31.0) 27.5 PG (27.0-31.0) Mean Corpuscular Hemoglobin Concent 31.6 G/DL (32.0-36.0) 31.1 G/DL (32.0-36.0) 31.8 G/DL (32.0-36.0) Red Cell Distribution Width 15.6 % (11.6-14.8) 15.3 % (11.6-14.8) 15.5 % (11.6-14.8) Platelet Count 95 K/UL (150-450) 101 K/UL (150-450) 95 K/UL (150-450) Mean Platelet Volume 8.1 FL (6.5-10.1) 8.3 FL (6.5-10.1) 8.1 FL (6.5-10.1) Neutrophils (%) (Auto) % (45.0-75.0) 74.8 % (45.0-75.0) % (45.0-75.0) Lymphocytes (%) (Auto) % (20.0-45.0) 13.7 % (20.0-45.0) % (20.0-45.0) Monocytes (%) (Auto) % (1.0-10.0) 9.3 % (1.0-10.0) % (1.0-10.0) Eosinophils (%) (Auto) % (0.0-3.0) 1.9 % (0.0-3.0) % (0.0-3.0) Basophils (%) (Auto) % (0.0-2.0) 0.4 % (0.0-2.0) % (0.0-2.0) Differential Total Cells Counted 100 Neutrophils % (Manual) 78 % (45-75) Lymphocytes % (Manual) 11 % (20-45) Monocytes % (Manual) 7 % (1-10) Eosinophils % (Manual) 0 % (0-3) Basophils % (Manual) 0 % (0-2) Band Neutrophils 4 % (0-8) Platelet Estimate Decreased Platelet Morphology Normal Anisocytosis 1+ Sodium Level 146 MMOL/L (136-145) 147 MMOL/L (136-145) 145 MMOL/L (136-145) Potassium Level 4.2 MMOL/L (3.5-5.1) 4.6 MMOL/L (3.5-5.1) 5.1 MMOL/L (3.5-5.1) Chloride Level 119 MMOL/L (98-107) 119 MMOL/L (98-107) 117 MMOL/L (98-107) Carbon Dioxide Level 17 MMOL/L (21-32) 20 MMOL/L (21-32) 20 MMOL/L (21-32) Anion Gap 10 mmol/L (5-15) 8 mmol/L (5-15) 8 mmol/L (5-15) Blood Urea Nitrogen 32 mg/dL (7-18) 35 mg/dL (7-18) 34 mg/dL (7-18) Creatinine 1.4 MG/DL (0.55-1.30) 1.4 MG/DL (0.55-1.30) 1.5 MG/DL (0.55-1.30) Estimat Glomerular Filtration Rate 50.1 mL/min (>60) 50.1 mL/min (>60) 46.3 mL/min (>60) Glucose Level 82 MG/DL (74-106) 81 MG/DL (74-106) 102 MG/DL (74-106) Calcium Level 8.8 MG/DL (8.5-10.1) 8.7 MG/DL (8.5-10.1) 8.4 MG/DL (8.5-10.1) Phosphorus Level 3.5 MG/DL (2.5-4.9) Magnesium Level 2.4 MG/DL (1.8-2.4) Total Bilirubin 0.2 MG/DL (0.2-1.0) 0.2 MG/DL (0.2-1.0) Aspartate Amino Transf (AST/SGOT) 50 U/L (15-37) 50 U/L (15-37) Alanine Aminotransferase (ALT/SGPT) 59 U/L (12-78) 55 U/L (12-78) Alkaline Phosphatase 206 U/L (46-116) 202 U/L (46-116) C-Reactive Protein, Quantitative 15.2 mg/dL (0.00-0.90) Pro-B-Type Natriuretic Peptide 39042 pg/mL (0-125) 60674 pg/mL (0-125) Total Protein 5.7 G/DL (6.4-8.2) 5.9 G/DL (6.4-8.2) Albumin 1.9 G/DL (3.4-5.0) 1.9 G/DL (3.4-5.0) Globulin 3.8 g/dL 4.0 g/dL Albumin/Globulin Ratio 0.5 (1.0-2.7) 0.5 (1.0-2.7) Random Amikacin Level 10.2 ug/mL 5.5 ug/mL Vancomycin Level Trough 34.3 ug/mL (5.0-12.0) Amikacin Level Peak 24.5 ug/mL (25.0-35.0) Height (Feet): 5 Height (Inches): 8.00 Weight (Pounds): 155 Objective PHYSICAL EXAMINATION: VITAL SIGNS: Have been reviewed HEENT: Trach/vent site ++ CHEST: Bibasilar rales CV: Regular rate and rhythm. GI: Positive bowel sounds. G-tube++ EXTREMITIES: + edema. NEUROLOGICAL: Reflexes equal on both sides. No organomegaly. Nikos Nath MD Jun 20, 2019 14:30
--- NOTE | 2019-06-20 15:10 | Pulmonolgy Critical Care Note ---
Critical Care - Asmt/Plan Problems: (1) Septic shock (2) Pyelonephritis (3) Chronic respiratory failure (4) Alzheimer's dementia (5) Severe erosive esophagitis (6) Feeding by G-tube (7) Diabetes (8) CVA (cerebral vascular accident) Respiratory: monitor respiratory rate, adjust FIO2 Cardiac: continue pressors, continue to monitor HR/BP Renal: F/U I&O, keep IV fluid Infectious Disease: continue antibiotics Gastrointestinal: continue feedings/current rate Endocrine: monitor blood sugar, check HgA1C Hematologic: transfuse if hgb<8.5 Neurologic: PRN Ativan, keep patient comfortable Affect: PRN ativan Notes Reviewed: dbas, 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 with: nurses, consultants, 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 - Objective Last 24 Hour Vital Signs Date Time Temp Pulse Resp B/P (MAP) Pulse Ox O2 Delivery O2 Flow Rate FiO2 06/20/19 14:30 79 18 35 06/20/19 12:31 80 16 35 06/20/19 12:00 35 06/20/19 11:03 77 16 35 06/20/19 08:33 81 16 35 06/20/19 08:00 96.8 82 16 153/72 (99) 100 06/20/19 08:00 Mechanical Ventilator 06/20/19 08:00 74 06/20/19 08:00 35 06/20/19 06:30 80 16 35 06/20/19 05:29 92 20 35 06/20/19 04:00 Mechanical Ventilator 06/20/19 04:00 91 06/20/19 04:00 98.0 89 20 109/76 (87) 100 06/20/19 03:34 35 06/20/19 02:35 89 18 35 06/20/19 01:29 88 19 35 06/20/19 00:00 92 06/20/19 00:00 Mechanical Ventilator 06/20/19 00:00 35 06/20/19 00:00 98.7 90 17 135/76 (95) 100 06/19/19 23:29 89 21 35 06/19/19 21:20 90 16 35 35 06/19/19 20:00 Mechanical Ventilator 06/19/19 20:00 35 06/19/19 20:00 95 06/19/19 20:00 99.2 95 18 135/75 (95) 100 06/19/19 19:01 94 19 35 35 06/19/19 17:30 97 19 35 06/19/19 16:00 98 06/19/19 16:00 Mechanical Ventilator 06/19/19 16:00 35 06/19/19 16:00 97.7 95 20 116/62 (80) 97 Status: awake Condition: critical Heart: HR/BP stable, regular Abdomen: active bowel sounds Extremities: no C/C/E Critical Care - Subjective Condition: critical EKG Rhythm: Sinus Rhythm FI02: 35 Vent Support Breath Rate: 16 Vent Support Mode: AC Vent Tidal Volume: 600 Sputum Amount: Small PEEP: 0.0 PIP: 36 Tube Feeding Amount: 55 I&O: Intake and Output 06/19/19 06/20/19 19:00 07:00 Intake Total 1524.000 ml 1330 ml Output Total 600 ml 1000 ml Balance 924.000 ml 330 ml Intake Free Water 130 ml 200 ml IV Total 874.000 ml 650 ml Tube Feeding 520 ml 480 ml Output Urine Total 600 ml 1000 ml # Bowel Movements 1 Labs: Laboratory Tests Test 06/20/19 01:00 06/20/19 11:30 White Blood Count 11.4 K/UL (4.8-10.8) H Red Blood Count 2.98 M/UL (4.70-6.10) L Hemoglobin 8.2 G/DL (14.2-18.0) L Hematocrit 25.8 % (42.0-52.0) L Mean Corpuscular Volume 86 FL (80-99) Mean Corpuscular Hemoglobin 27.5 PG (27.0-31.0) Mean Corpuscular Hemoglobin Concent 31.8 G/DL (32.0-36.0) L Red Cell Distribution Width 15.5 % (11.6-14.8) H Platelet Count 95 K/UL (150-450) L Mean Platelet Volume 8.1 FL (6.5-10.1) Neutrophils (%) (Auto) % (45.0-75.0) Lymphocytes (%) (Auto) % (20.0-45.0) Monocytes (%) (Auto) % (1.0-10.0) Eosinophils (%) (Auto) % (0.0-3.0) Basophils (%) (Auto) % (0.0-2.0) Sodium Level 145 MMOL/L (136-145) Potassium Level 5.1 MMOL/L (3.5-5.1) Chloride Level 117 MMOL/L (98-107) H Carbon Dioxide Level 20 MMOL/L (21-32) L Anion Gap 8 mmol/L (5-15) Blood Urea Nitrogen 34 mg/dL (7-18) H Creatinine 1.5 MG/DL (0.55-1.30) H Estimat Glomerular Filtration Rate 46.3 mL/min (>60) Glucose Level 102 MG/DL (74-106) Calcium Level 8.4 MG/DL (8.5-10.1) L Vancomycin Level Trough 34.3 ug/mL (5.0-12.0) H Amikacin Level Peak 24.5 ug/mL (25.0-35.0) L Huma Keating MD Jun 20, 2019 15:10
[2019-06-20 16:00] VITALS: BP 132/48
--- NOTE | 2019-06-20 16:03 | Surgery Progress Note ---
Surgery Progress Note Subjective Procedure Performed right subclavian central venous catheter insertion Additional Comments Patient seen and examined bedside. No acute events. Patient plan for PICC line placement today. Once PICC line is placed will remove central line catheter from right subclavian. Labs noted. Abdominal exam as below. Objective Last 24 Hour Vital Signs Date Time Temp Pulse Resp B/P (MAP) Pulse Ox O2 Delivery O2 Flow Rate FiO2 06/20/19 14:30 79 18 35 06/20/19 12:31 80 16 35 06/20/19 12:00 96.3 79 20 147/70 (95) 100 06/20/19 12:00 98 06/20/19 12:00 Mechanical Ventilator 06/20/19 12:00 35 06/20/19 11:03 77 16 35 06/20/19 08:33 81 16 35 06/20/19 08:00 96.8 82 16 153/72 (99) 100 06/20/19 08:00 Mechanical Ventilator 06/20/19 08:00 74 06/20/19 08:00 35 06/20/19 06:30 80 16 35 06/20/19 05:29 92 20 35 06/20/19 04:00 Mechanical Ventilator 06/20/19 04:00 91 06/20/19 04:00 98.0 89 20 109/76 (87) 100 06/20/19 03:34 35 06/20/19 02:35 89 18 35 06/20/19 01:29 88 19 35 06/20/19 00:00 92 06/20/19 00:00 Mechanical Ventilator 06/20/19 00:00 35 06/20/19 00:00 98.7 90 17 135/76 (95) 100 06/19/19 23:29 89 21 35 06/19/19 21:20 90 16 35 35 06/19/19 20:00 Mechanical Ventilator 06/19/19 20:00 35 06/19/19 20:00 95 06/19/19 20:00 99.2 95 18 135/75 (95) 100 06/19/19 19:01 94 19 35 35 06/19/19 17:30 97 19 35 I&O Intake and Output 06/19/19 06/20/19 19:00 07:00 Intake Total 1524.000 ml 1330 ml Output Total 600 ml 1000 ml Balance 924.000 ml 330 ml Intake Free Water 130 ml 200 ml IV Total 874.000 ml 650 ml Tube Feeding 520 ml 480 ml Output Urine Total 600 ml 1000 ml # Bowel Movements 1 Dressing: saturated Wound: other Drains: other Cardiovascular: RSR Respiratory: decreased breath sounds Abdomen: soft, present bowel sounds, other, non-distended Extremities: no cyanosis, other Laboratory Tests Test 06/20/19 01:00 06/20/19 11:30 White Blood Count 11.4 K/UL (4.8-10.8) H Red Blood Count 2.98 M/UL (4.70-6.10) L Hemoglobin 8.2 G/DL (14.2-18.0) L Hematocrit 25.8 % (42.0-52.0) L Mean Corpuscular Volume 86 FL (80-99) Mean Corpuscular Hemoglobin 27.5 PG (27.0-31.0) Mean Corpuscular Hemoglobin Concent 31.8 G/DL (32.0-36.0) L Red Cell Distribution Width 15.5 % (11.6-14.8) H Platelet Count 95 K/UL (150-450) L Mean Platelet Volume 8.1 FL (6.5-10.1) Neutrophils (%) (Auto) % (45.0-75.0) Lymphocytes (%) (Auto) % (20.0-45.0) Monocytes (%) (Auto) % (1.0-10.0) Eosinophils (%) (Auto) % (0.0-3.0) Basophils (%) (Auto) % (0.0-2.0) Sodium Level 145 MMOL/L (136-145) Potassium Level 5.1 MMOL/L (3.5-5.1) Chloride Level 117 MMOL/L (98-107) H Carbon Dioxide Level 20 MMOL/L (21-32) L Anion Gap 8 mmol/L (5-15) Blood Urea Nitrogen 34 mg/dL (7-18) H Creatinine 1.5 MG/DL (0.55-1.30) H Estimat Glomerular Filtration Rate 46.3 mL/min (>60) Glucose Level 102 MG/DL (74-106) Calcium Level 8.4 MG/DL (8.5-10.1) L Vancomycin Level Trough 34.3 ug/mL (5.0-12.0) H Amikacin Level Peak 24.5 ug/mL (25.0-35.0) L Plan Problems: (1) Severe protein-calorie malnutrition Assessment & Plan: DAILY ESTIMATED NEEDS: Needs based on Critical care, underweight TF [employer]ER 56.8 30-35 kcals/kg 7312-8962 total kcals 1.25-2 g protein/kg 71-113.6 g total protein 25-30 mL/kg 8800-6507 total fluid mLs NUTRITION DIAGNOSIS: * Increased kcal/prot intake needs R/T sepsis and underweight status as evidenced by pt adm w/ critically elev WBC (35.7*), febrile, @68% [place] Body Weight. * Swallowing difficulty R/T respiratory status as evidenced by pt vent dep via trach, PEG dep. ENTERAL NUTRITION RECOMMENDATIONS: Nepro @45mL/hr x 22hr to provide 990mL, 1782kcal, 80g pro, 720mL free water -When Hemodynamically stable, start Nepro @ 15mL/hr for 6 hrs. -Advance as tolerated 10mL q 4-6 hrs to goal. -TF @goal meets 100% est needs. -Flush per MD/ HOB >30 degrees. ADDITIONAL RECOMMENDATIONS: * Calibrated bedscale weight for accurate CBW + weekly wt monitoring * Per SNF: Ht of 6'1", Wt 125# (05/2019) * TF recs as above when medically stable * Monitor for cont'd need of renal formula (K 5.5) * Monitor lytes and hydration status. (2) Feeding by G-tube (3) Respiratory failure, [id number] (4) Septic shock Assessment & Plan: hypotensive - improved tachycardic - improved labs as above improving Plan for placement of PICC line today We will remove central line once because removed will follow with recs thank you (5) Severe sepsis (6) GT SITE LEAKING Assessment & Plan: Patient identified worsening G-tube site leakage and cellulitis. This has been noted on prior admissions which is cared for. Plan for placement as below Pt presents with contractures. Skin erosions to abdominal region, and multiple areas of non-blanching erythema. Skin erosion noted to abdomen extending around GT and mostly to L abdominal area, skin is grossly red and excoriated. Furuncle noted to L flank oozing moderate amt purulent exudate. Non-blanchable erythema without fluctuance noted to L lateral malleolus (L) 1.5cm x (W)3cm. Non-blanchable erythema without fluctuance noted to lateral L foot (L)1cm x (W) 1cm. Non-blanchable erythema noted to sacral cleft. No other skin concerns noted. Tx.Plan: Apply Zinc Oxide Paste to GT site and excoriated areas on abd daily and prn. Apply Betadine to Boil L flank Daily .Cover with Optifoam drsg. Change daily and prn. Apply Moisture Barrier Paste to sacrum. Cover with Optifoam drsg. Change every 3 days and prn. Apply Cavilon to Non-blanchable areas L foot and bilat heels. Cover each site with Optifoam drsg. Change every 7 days and prn. Reposition at least every 2hours or as tolerated. Place pillow between knees. Off-load heels with pillow. APM/RENO Mattress overlay. Quirino Bernard Jun 20, 2019 16:03
--- NOTE | 2019-06-20 16:41 | Diagnostic Imaging Report ---
Indication: continuous churn buttermaker venous access Findings: After the indications, procedure, risks, complications, and alternatives of the procedure were explained, written informed consent was obtained. The left upper extremity was prepped with alcohol. All elements of maximal sterile barrier technique were followed including usage of a cap, mask, sterile gown, sterile gloves, hand hygiene and a large sterile sheet. Sonographic evaluation of the upper extremity was performed demonstrating a patent and compressible basilic vein. Access was obtained under real-time ultrasound guidance (with utilization of sterile gel and sterile probe cover) and digital image was saved and archived. An .018 wire was introduced. Needle exchanged for a 5 Irish peel-away sheath. Measurements were obtained. A 5 Irish dual-lumen Power PICC line catheter was cut to 40 cm and introduced over the wire. Peel-away sheath and wire were removed.Catheter was secured to the skin using 2-0 Prolene suture. Both ports aspirate and flush easily. Post procedure chest x-ray demonstrates good position of the PICC line catheter within the SVC. Impression: Successful placement of an upper extremity PICC line catheter. The catheter may be used immediately.
[2019-06-20] MEDS ORDERED: Zinc Oxide Oint 2oz TOPIC SCH (18:00)
--- NOTE | 2019-06-20 18:05 | Operative Note - PDOC ---
Operative Note Operative Note Pre-op Diagnosis: sepsis, tachycardia, hypotension Procedure: right subclavian central venous catheter removal Post-op Diagnosis: same as pre-op Surgeon: quinton LUNA Specimen: none Complications: none Condition: unstable Fluids: n/a Estimated Blood Loss: minimal Drains: none Implant(s) used?: No Indications for Procedure 70M prior right subclavian central line now with picc. line ready for removal Description of Procedure site cleaned. dressings removed. suture cut. line removed. site cleaned. pressure held for 15mins until hemostasis noted. dressings applied will monitor site for bleeding/hematoma/infection thank you Quirino Bernard Jun 20, 2019 18:05
--- NOTE | 2019-06-20 19:39 | NUR ---
NURSE NOTES: Received report from Iona Martins RN. Pt is stable, nonverbal, eyes open, does not track. Currently SR. Trach to vent settings: Portex 8, AC 16, TV 600, Fio2 35 %, no PEEP per MD Zuri. GT intact, patent, no residuals, flushed with 50 ml sterile water. Tolerated well. Left central line running D5W @50ml/hr. No signs or symptoms of infiltration, redness, or discoloration at site. Fall precautions implemented: bed in lowest position, bed alarm armed, Pt wearing yellow gown and socks, with call light within reach. Seizure precautions implemented. No signs or symptoms of pain noted at this time. Will continue to monitor closely.
--- NOTE | 2019-06-20 19:40 | NUR ---
HAND-OFF: Report given to ODILIA Miranda. Pt in stable condition.
[2019-06-20 20:00] VITALS: BP 137/85
--- NOTE | 2019-06-20 20:07 | NUR ---
ASSISTANT AUDITOR: REVIEW SI: RESP FAILURE TRACH/VENT DEPENDENT . SEPSIS T 96.3 HR 79 RR 20 BP 153/72 SAT 100% MECH VENT FIO2 35 WBC 11.4 H/H 8.2/25.8 BUN 34 CR 1.5 IS: MIDODRINE GT TID IVF D5NS@ 50ML/HR ERTAPENEM IV Q24HR HEPARIN SUBQ Q12HR STEP DOWN UNIT STATUS DCP: PATIENT IS FROM [facility] [place]
[2019-06-20] MEDS: Dyna-Hex 2% Top Sol 2oz TOPIC SCH (20:29)
[2019-06-20] MEDS: Ertapenem 1 GM in NS 55 ML IV SCH (20:30)
[2019-06-21] VITALS: BP 114/65
--- NOTE | 2019-06-21 02:20 | NUR ---
NURSE NOTES: Pt in bed, eyes open and not tracking, stable, SR with 1st degree HB. Pt given complete bed bath including CHG, meatal care, wound care as ordered, and g tube dressing change. Bed linen changed. Pt repositioned, tolerated well. FLACC 0, no signs or symptoms of distress noted at this time, will continue to monitor closely.
[2019-06-21 04:00] VITALS: BP 143/66
[2019-06-21] MEDS: Metoclopramide 10mg/10ml Liq NG SCH (05:45)
[2019-06-21 06:27] LABS: HEMATOCRIT 26.1 % (42.0-52.0); HEMOGLOBIN 8.2 G/DL (14.2-18.0); MEAN CORPUSCULAR VOLUME 87 FL (80-99); PLATELET COUNT 72 K/UL (150-450); RED CELL DISTRIBUTION WIDTH 15.2 % (11.6-14.8); WHITE BLOOD COUNT 10.6 K/UL (4.8-10.8)
[2019-06-21 06:47] LABS: ANION GAP 6 mmol/L (5-15); BLOOD UREA NITROGEN 33 mg/dL (7-18); CALCIUM 8.9 MG/DL (8.5-10.1); CARBON DIOXIDE 24 MMOL/L (21-32); CHLORIDE 114 MMOL/L (98-107); CREATININE 1.3 MG/DL (0.55-1.30); POTASSIUM 4.9 MMOL/L (3.5-5.1); SODIUM 144 MMOL/L (136-145)
--- NOTE | 2019-06-21 07:20 | NUR ---
RESPIRATORY NOTE: Patient received mechanically ventilated on PB 840 with current ordered vent settings. Patient has trach size 8.0 Portex cuffed that is secured with trach tie and guard. Vent alarms are functional and audible. There is an ambu bag and spare trach available at the bedside. Vent is connected to a red outlet. Patient appears comfortable at this time. Will continue to monitor patient.
--- NOTE | 2019-06-21 07:26 | NUR ---
HAND-OFF: Report given to Iona Martins RN. Pt is stable, SR with 1st degree HB, no signs or symptoms of distress at this time.
[2019-06-21] MEDS: Heparin 5000 units/ml inj SUBQ SCH ×2 (07:48→21:00)
--- NOTE | 2019-06-21 07:50 | NUR ---
NURSE NOTES: Late Entry (correct time 725): Pt received from [facility] in stable condition with no cardiopulmonary distress noted. Pt is asleep in bed, trache to vent, non verbal, Portex 8, AC 16 TV 600 FiO2 35% with no Peep. Dr Wilson at bedside replacing GT with a 20Fr GT (Awaiting Xray confirmation for placement- tube feeding now stopped and GT clamped). Redness noted around GT site. F/C noted draining yellow urine. Skin alterations noted. Pt has a ALEXI PICC. Bed in lowest position, alarm on, side rails up x2 and padded per seizure precaution, call light within reach. Will continue to monitor. Left message for Dr. Nath regarding pt's PLT today (72) and informed him that heparin will be held per parameters noted.
[2019-06-21 08:00] VITALS: BP 131/64
--- NOTE | 2019-06-21 08:43 | Pulmonology Progress Note ---
Assessment/Plan Assessment/Plan ASSESSMENT Septic shock, likely secondary to UTI and pneumonia UTI/pyelonephritis with Proteus and Providencia Pneumonia Acute on chronic respiratory failure VDRF/tracheostomy status Dysphagia, feeding by G-tube G tube site erythema/irritation Anemia of chronic disease History of GI bleeding Severe erosive esophagitis Hypothyroidism with elevated TSH Thrombocytopenia improving Severe protein calorie malnutrition PLAN OF CARE LUIS s/p pressors Vent support, pulmonary toilet Follow-up with CXR Repeat ABG Abx as per ID Echo with EF 55-60% BP support with midodrine Off IVF Aspiration precaution , G-tube feeding G tube site care culture G tube site if any drainage Protein supplement as per RD recommendation Monitor H&H with goal to keep Hgb above 7 , s/p 1 unit PRBC DVT, GI prophylaxis Monitor PLT count , improving Elevated TSH, increase Levothyroxine supportive care case discussed and evaluated by supervising physician Subjective Allergies: Coded Allergies: NO KNOWN DRUG ALLERGIES (Verified Allergy, Unknown, 09/11/16) Subjective no signs of resp distress remains afebrile , leuk resolved HH at baseiling creat down Objective Last 24 Hour Vital Signs Date Time Temp Pulse Resp B/P (MAP) Pulse Ox O2 Delivery O2 Flow Rate FiO2 06/21/19 08:00 Mechanical Ventilator 06/21/19 08:00 35 06/21/19 07:15 83 16 35 06/21/19 05:10 81 18 35 06/21/19 04:08 80 06/21/19 04:00 35 06/21/19 04:00 Mechanical Ventilator 06/21/19 04:00 97.9 73 16 143/66 (91) 100 06/21/19 03:10 78 16 35 06/21/19 00:55 76 16 35 06/21/19 00:00 96.4 75 16 114/65 (81) 99 06/21/19 00:00 35 06/21/19 00:00 Mechanical Ventilator 06/20/19 23:39 81 06/20/19 22:45 77 16 35 06/20/19 20:56 79 16 35 06/20/19 20:20 83 06/20/19 20:00 Mechanical Ventilator 06/20/19 20:00 35 06/20/19 20:00 97.3 82 16 137/85 (102) 100 06/20/19 18:55 83 18 35 06/20/19 17:00 80 18 35 06/20/19 16:00 96.4 85 16 132/48 (76) 100 06/20/19 16:00 82 06/20/19 16:00 Mechanical Ventilator 06/20/19 16:00 35 06/20/19 14:30 79 18 35 06/20/19 12:31 80 16 35 06/20/19 12:00 96.3 79 20 147/70 (95) 100 06/20/19 12:00 98 06/20/19 12:00 Mechanical Ventilator 06/20/19 12:00 35 06/20/19 11:03 77 16 35 Intake and Output 06/20/19 06/21/19 19:00 07:00 Intake Total 1177 ml 1157.43 ml Output Total 800 ml 600 ml Balance 377 ml 557.43 ml Intake Free Water 100 ml 100 ml IV Total 462 ml 672.43 ml Tube Feeding 615 ml 385 ml Output Urine Total 800 ml 600 ml # Bowel Movements 4 General Appearance: no acute distress, other - bedbound, on vent AC 600-16-35 % , HEENT: normocephalic, atraumatic, anicteric, status post trach - Portex#8, secretions moderate amount, thick, white color Respiratory/Chest: lungs clear, no respiratory distress, chest wall tender Cardiovascular: normal rate, regular rhythm - SR on tele , other - LUE PICC intact Abdomen: normal bowel sounds, soft, non tender, other - G tube site with erythema Extremities: no edema, pedal pulses normal Neurologic/Psychiatric: abnormal gait - bedridden , other - Left hemiparesis , responds to tactile stimuli only Musculoskeletal: atrophy - BLE Microbiology Date/Time Source Procedure Growth Status 06/20/19 14:30 Sputum Gram Stain - Final Resulted 06/20/19 14:30 Sputum Sputum Culture Pending Resulted Laboratory Tests 06/20/19 11:30: Amikacin Level Peak 24.5L 06/20/19 18:00: Random Vancomycin Level 27.6 06/21/19 05:00: Random Vancomycin Level 23.7, White Blood Count 10.6, Red Blood Count 3.00L, Hemoglobin 8.2L, Hematocrit 26.1L, Mean Corpuscular Volume 87, Mean Corpuscular Hemoglobin 27.4, Mean Corpuscular Hemoglobin Concent 31.6L, Red Cell Distribution Width 15.2H, Platelet Count 72L, Mean Platelet Volume 8.5, Neutrophils (%) (Auto) , Lymphocytes (%) (Auto) , Monocytes (%) (Auto) , Eosinophils (%) (Auto) , Basophils (%) (Auto) , Neutrophils % (Manual) [Pending] , Lymphocytes % (Manual) [Pending], Platelet Estimate [Pending], Platelet Morphology [Pending], Sodium Level 144, Potassium Level 4.9, Chloride Level 114H , Carbon Dioxide Level 24, Anion Gap 6, Blood Urea Nitrogen 33H, Creatinine 1.3 , Estimat Glomerular Filtration Rate 54.6, Glucose Level 162H, Calcium Level 8.9 Current Medications Medications (Trade) Dose Ordered Sig/Wanda Route PRN Reason Start Time Stop Time Status Last Admin Dose Admin Acetaminophen (Tylenol) 650 mg Q4H PRN GT fever (temp>100.5F) 06/19/19 04:00 07/14/19 03:59 Amikacin Protocol (Amikacin pharmacy to dose) 1 ea DAILY PRN MISC PER RX PROTOCOL 06/19/19 09:00 07/14/19 16:44 Chlorhexidine Gluconate (Jasmin-Hex 2%) 1 applic DAILY@2000 TOPIC 06/20/19 20:00 07/20/19 19:59 06/20/19 20:29 Dextrose 1,000 ml @ 50 mls/hr Q20H IV 06/19/19 03:15 07/18/19 12:59 06/20/19 18:39 Ertapenem 1 gm/ Sodium Chloride 55 ml @ 110 mls/hr Q24H IV 06/19/19 21:00 06/25/19 20:59 06/20/19 20:30 Heparin Sodium (Porcine) (Heparin 5000 units/ml) 5,000 units EVERY 12 HOURS SUBQ 06/19/19 09:00 07/14/19 20:59 06/20/19 08:42 Levothyroxine Sodium (Synthroid) 75 mcg DAILY@0630 GT 06/20/19 06:30 07/20/19 06:29 06/21/19 05:44 Lorazepam (Ativan 2mg/ml 1ml) 2 mg Q2H PRN IV For Anxiety 06/19/19 04:30 06/21/19 14:29 Midodrine (Pro-Amatine) 2.5 mg THREE TIMES A DAY GT 06/19/19 13:00 07/17/19 12:59 Ondansetron HCl (Zofran) 4 mg Q6H PRN IVP Nausea & Vomiting 06/19/19 08:30 07/14/19 14:29 Pantoprazole (Protonix) 40 mg EVERY 12 HOURS IVP 06/21/19 09:00 07/21/19 08:59 Polyethylene Glycol (Miralax) 17 gm DAILYPRN PRN GT Constipation 06/19/19 14:30 07/14/19 14:29 Sucralfate (Carafate) 1 gm TID GT 06/21/19 09:00 07/21/19 08:59 Vancomycin HCl (Vanco rx to dose) 1 ea DAILY PRN MISC Per rx protocol 06/19/19 09:00 07/18/19 11:59 Zinc Oxide (Zinc Oxide) 1 applic DAILY TOPIC 06/21/19 09:00 07/21/19 08:59 Amina Garcia [employer] Jun 21, 2019 08:43
--- NOTE | 2019-06-21 08:53 | Nephrology Progress Note ---
Assessment/Plan Problem List: (1) Septic shock (2) Hypothyroidism (3) Upper GI bleed (4) Respiratory failure, [id number] (5) Anemia Assessment Sepsis Shock on pressors GI Bleed Low Na and high K UTI HypoThyroidism Tracheostomy dependence Respiratory failure, [id number] Alzheimer's Feeding by G-tube Plan off pressors- On Midodrine On GT feeding On Reglan fluid challenge as needed adjust IV fluids transfuse as needed Monitor lytes and renal parametrs urine studies per orders Subjective ROS Limited/Unobtainable: Yes Objective Objective Last 24 Hour Vital Signs Date Time Temp Pulse Resp B/P (MAP) Pulse Ox O2 Delivery O2 Flow Rate FiO2 06/21/19 08:00 Mechanical Ventilator 06/21/19 08:00 35 06/21/19 07:15 83 16 35 06/21/19 05:10 81 18 35 06/21/19 04:08 80 06/21/19 04:00 35 06/21/19 04:00 Mechanical Ventilator 06/21/19 04:00 97.9 73 16 143/66 (91) 100 06/21/19 03:10 78 16 35 06/21/19 00:55 76 16 35 06/21/19 00:00 96.4 75 16 114/65 (81) 99 06/21/19 00:00 35 06/21/19 00:00 Mechanical Ventilator 06/20/19 23:39 81 06/20/19 22:45 77 16 35 06/20/19 20:56 79 16 35 06/20/19 20:20 83 06/20/19 20:00 Mechanical Ventilator 06/20/19 20:00 35 06/20/19 20:00 97.3 82 16 137/85 (102) 100 06/20/19 18:55 83 18 35 06/20/19 17:00 80 18 35 06/20/19 16:00 96.4 85 16 132/48 (76) 100 06/20/19 16:00 82 06/20/19 16:00 Mechanical Ventilator 06/20/19 16:00 35 06/20/19 14:30 79 18 35 06/20/19 12:31 80 16 35 06/20/19 12:00 96.3 79 20 147/70 (95) 100 06/20/19 12:00 98 06/20/19 12:00 Mechanical Ventilator 06/20/19 12:00 35 06/20/19 11:03 77 16 35 Intake and Output 06/20/19 06/21/19 19:00 07:00 Intake Total 1177 ml 1157.43 ml Output Total 800 ml 600 ml Balance 377 ml 557.43 ml Intake Free Water 100 ml 100 ml IV Total 462 ml 672.43 ml Tube Feeding 615 ml 385 ml Output Urine Total 800 ml 600 ml # Bowel Movements 4 Laboratory Tests 06/20/19 11:30: Amikacin Level Peak 24.5L 06/20/19 18:00: Random Vancomycin Level 27.6 06/21/19 05:00: Random Vancomycin Level 23.7, White Blood Count 10.6, Red Blood Count 3.00L, Hemoglobin 8.2L, Hematocrit 26.1L, Mean Corpuscular Volume 87, Mean Corpuscular Hemoglobin 27.4, Mean Corpuscular Hemoglobin Concent 31.6L, Red Cell Distribution Width 15.2H, Platelet Count 72L, Mean Platelet Volume 8.5, Neutrophils (%) (Auto) , Lymphocytes (%) (Auto) , Monocytes (%) (Auto) , Eosinophils (%) (Auto) , Basophils (%) (Auto) , Neutrophils % (Manual) [Pending] , Lymphocytes % (Manual) [Pending], Platelet Estimate [Pending], Platelet Morphology [Pending], Sodium Level 144, Potassium Level 4.9, Chloride Level 114H , Carbon Dioxide Level 24, Anion Gap 6, Blood Urea Nitrogen 33H, Creatinine 1.3 , Estimat Glomerular Filtration Rate 54.6, Glucose Level 162H, Calcium Level 8.9 Height (Feet): 5 Height (Inches): 8.00 Weight (Pounds): 188 General Appearance: no apparent distress EENT: other - trach-vent Cardiovascular: tachycardia Respiratory/Chest: decreased breath sounds Abdomen: distended Sav Salvador MD Jun 21, 2019 08:53
[2019-06-21] MEDS: Sucralfate 1gm tab GT SCH ×4 (09:00→17:27)
[2019-06-21] MEDS: Pantoprazole Inj IVP SCH ×2 (09:25→21:10)
[2019-06-21] MEDS: Zinc Oxide Oint 2oz TOPIC SCH (09:25)
--- NOTE | 2019-06-21 09:29 | NUR ---
NURSE NOTES: Carafate wasted. KUB is still not done since order was placed STAT this morning. Unable to give any medications via GT route until KUB results confirm placement. pharmacy notified. Will follow up with X-ray lab.
[2019-06-21] MEDS ORDERED: Gastrograffin 30ml ORAL SCH (10:00)
--- NOTE | 2019-06-21 10:19 | General Progress Note ---
Assessment/Plan Problem List: (1) [facility] resident ICD Codes: Z59.3 - Problems related to living in residential institution SNOMED: 239577954 (2) GT SITE LEAKING (3) Alzheimer's dementia ICD Codes: G30.9 - Alzheimer's disease, unspecified SNOMED: 94016871 (4) Upper GI bleed ICD Codes: K92.2 - Upper gastrointestinal hemorrhage SNOMED: 52813958 (5) Severe erosive esophagitis (6) Malfunction of gastrostomy tube ICD Codes: K94.23 - Gastrostomy malfunction SNOMED: 506673392 (7) Chronic respiratory failure ICD Codes: J96.10 - Chronic respiratory failure, unspecified whether with hypoxia or hypercapnia SNOMED: 18704093 (8) Anemia ICD Codes: D64.9 - Anemia, unspecified SNOMED: 879057471 Status: unchanged Assessment/Plan: GT changed at the bedside to 20 Fr change ppi to protonix 40 mg Q12 add carafate fu CBC fu stool ob plan EGD on Sunday Subjective ROS Limited/Unobtainable: No Allergies: Coded Allergies: NO KNOWN DRUG ALLERGIES (Verified Allergy, Unknown, 09/11/16) Objective Last 24 Hour Vital Signs Date Time Temp Pulse Resp B/P (MAP) Pulse Ox O2 Delivery O2 Flow Rate FiO2 06/21/19 09:29 73 17 35 06/21/19 08:00 96.4 74 16 131/64 (86) 99 06/21/19 08:00 Mechanical Ventilator 06/21/19 08:00 35 06/21/19 07:15 83 16 35 06/21/19 05:10 81 18 35 06/21/19 04:08 80 06/21/19 04:00 35 06/21/19 04:00 Mechanical Ventilator 06/21/19 04:00 97.9 73 16 143/66 (91) 100 06/21/19 03:10 78 16 35 06/21/19 00:55 76 16 35 06/21/19 00:00 96.4 75 16 114/65 (81) 99 06/21/19 00:00 35 06/21/19 00:00 Mechanical Ventilator 06/20/19 23:39 81 06/20/19 22:45 77 16 35 06/20/19 20:56 79 16 35 06/20/19 20:20 83 06/20/19 20:00 Mechanical Ventilator 06/20/19 20:00 35 06/20/19 20:00 97.3 82 16 137/85 (102) 100 06/20/19 18:55 83 18 35 06/20/19 17:00 80 18 35 06/20/19 16:00 96.4 85 16 132/48 (76) 100 06/20/19 16:00 82 06/20/19 16:00 Mechanical Ventilator 06/20/19 16:00 35 06/20/19 14:30 79 18 35 06/20/19 12:31 80 16 35 06/20/19 12:00 96.3 79 16 147/70 (95) 100 06/20/19 12:00 98 06/20/19 12:00 Mechanical Ventilator 06/20/19 12:00 35 06/20/19 11:03 77 16 35 Intake and Output 06/20/19 06/21/19 19:00 07:00 Intake Total 1177 ml 1157.43 ml Output Total 800 ml 600 ml Balance 377 ml 557.43 ml Intake Free Water 100 ml 100 ml IV Total 462 ml 672.43 ml Tube Feeding 615 ml 385 ml Output Urine Total 800 ml 600 ml # Bowel Movements 4 Laboratory Tests 06/20/19 11:30: Amikacin Level Peak 24.5L 06/20/19 18:00: Random Vancomycin Level 27.6 06/21/19 05:00: Random Vancomycin Level 23.7, White Blood Count 10.6, Red Blood Count 3.00L, Hemoglobin 8.2L, Hematocrit 26.1L, Mean Corpuscular Volume 87, Mean Corpuscular Hemoglobin 27.4, Mean Corpuscular Hemoglobin Concent 31.6L, Red Cell Distribution Width 15.2H, Platelet Count 72L, Mean Platelet Volume 8.5, Neutrophils (%) (Auto) , Lymphocytes (%) (Auto) , Monocytes (%) (Auto) , Eosinophils (%) (Auto) , Basophils (%) (Auto) , Differential Total Cells Counted 100, Neutrophils % (Manual) 88H, Lymphocytes % (Manual) 2L, Monocytes % (Manual) 6, Eosinophils % (Manual) 4H, Basophils % (Manual) 0, Band Neutrophils 0, Platelet Estimate DecreasedL, Platelet Morphology Normal, Hypochromasia 2+, Anisocytosis 1+, Sodium Level 144, Potassium Level 4.9, Chloride Level 114H, Carbon Dioxide Level 24, Anion Gap 6, Blood Urea Nitrogen 33H, Creatinine 1.3, Estimat Glomerular Filtration Rate 54.6, Glucose Level 162H, Calcium Level 8.9 06/21/19 09:10: Random Amikacin Level [Pending] Height (Feet): 5 Height (Inches): 8.00 Weight (Pounds): 188 General Appearance: no apparent distress EENT: normal ENT inspection Neck: supple Cardiovascular: normal rate Respiratory/Chest: decreased breath sounds Abdomen: normal bowel sounds, non tender, soft Extremities: non-tender Vitaliy Wilson MD Jun 21, 2019 10:19
--- NOTE | 2019-06-21 10:38 | General Progress Note ---
Assessment/Plan Problem List: (1) Diabetes ICD Codes: E11.9 - Type 2 diabetes mellitus without complications SNOMED: 14743376 (2) HTN (hypertension) ICD Codes: I10 - Essential (primary) hypertension SNOMED: 77619786 (3) CVA (cerebral vascular accident) ICD Codes: I63.9 - Cerebral infarction, unspecified SNOMED: 620302687 (4) Severe protein-calorie malnutrition ICD Codes: E43 - Unspecified severe protein-calorie malnutrition SNOMED: 295052825 (5) Feeding by G-tube ICD Codes: Z93.1 - Gastrostomy status SNOMED: 472538717, 411780661 (6) Respiratory failure, [id number]-[id number] ICD Codes: J96.20 - Respiratory failure, [id number]-byqqqju SNOMED: 75047664 (7) Anemia ICD Codes: D64.9 - Anemia, unspecified SNOMED: 704874284 (8) Chronic respiratory failure ICD Codes: J96.10 - Chronic respiratory failure, unspecified whether with hypoxia or hypercapnia SNOMED: 25822080 (9) Septic shock ICD Codes: A41.9 - Sepsis, unspecified organism; R65.21 - Severe sepsis with septic shock SNOMED: 17819835 (10) Alzheimer's dementia ICD Codes: G30.9 - Alzheimer's disease, unspecified SNOMED: 55040832 (11) Severe sepsis ICD Codes: A41.9 - Sepsis, unspecified organism; R65.20 - Severe sepsis without septic shock SNOMED: 91887365 (12) Hypothyroidism ICD Codes: E03.9 - Hypothyroidism, unspecified SNOMED: 79919569 Status: unchanged Assessment/Plan: vent abx wean pressor cbc bmp am ltach eval Subjective Constitutional: Reports: weakness Allergies: Coded Allergies: NO KNOWN DRUG ALLERGIES (Verified Allergy, Unknown, 09/11/16) All Systems: reviewed and negative except above Subjective trach vent altered Objective Last 24 Hour Vital Signs Date Time Temp Pulse Resp B/P (MAP) Pulse Ox O2 Delivery O2 Flow Rate FiO2 06/21/19 09:29 73 17 35 06/21/19 08:00 96.4 74 16 131/64 (86) 99 06/21/19 08:00 Mechanical Ventilator 06/21/19 08:00 35 06/21/19 07:15 83 16 35 06/21/19 05:10 81 18 35 06/21/19 04:08 80 06/21/19 04:00 35 06/21/19 04:00 Mechanical Ventilator 06/21/19 04:00 97.9 73 16 143/66 (91) 100 06/21/19 03:10 78 16 35 06/21/19 00:55 76 16 35 06/21/19 00:00 96.4 75 16 114/65 (81) 99 06/21/19 00:00 35 06/21/19 00:00 Mechanical Ventilator 06/20/19 23:39 81 06/20/19 22:45 77 16 35 06/20/19 20:56 79 16 35 06/20/19 20:20 83 06/20/19 20:00 Mechanical Ventilator 06/20/19 20:00 35 06/20/19 20:00 97.3 82 16 137/85 (102) 100 06/20/19 18:55 83 18 35 06/20/19 17:00 80 18 35 06/20/19 16:00 96.4 85 16 132/48 (76) 100 06/20/19 16:00 82 06/20/19 16:00 Mechanical Ventilator 06/20/19 16:00 35 06/20/19 14:30 79 18 35 06/20/19 12:31 80 16 35 06/20/19 12:00 96.3 79 16 147/70 (95) 100 06/20/19 12:00 98 06/20/19 12:00 Mechanical Ventilator 06/20/19 12:00 35 06/20/19 11:03 77 16 35 Intake and Output 06/20/19 06/21/19 19:00 07:00 Intake Total 1177 ml 1157.43 ml Output Total 800 ml 600 ml Balance 377 ml 557.43 ml Intake Free Water 100 ml 100 ml IV Total 462 ml 672.43 ml Tube Feeding 615 ml 385 ml Output Urine Total 800 ml 600 ml # Bowel Movements 4 Laboratory Tests 06/20/19 11:30: Amikacin Level Peak 24.5L 06/20/19 18:00: Random Vancomycin Level 27.6 06/21/19 05:00: Random Vancomycin Level 23.7, White Blood Count 10.6, Red Blood Count 3.00L, Hemoglobin 8.2L, Hematocrit 26.1L, Mean Corpuscular Volume 87, Mean Corpuscular Hemoglobin 27.4, Mean Corpuscular Hemoglobin Concent 31.6L, Red Cell Distribution Width 15.2H, Platelet Count 72L, Mean Platelet Volume 8.5, Neutrophils (%) (Auto) , Lymphocytes (%) (Auto) , Monocytes (%) (Auto) , Eosinophils (%) (Auto) , Basophils (%) (Auto) , Differential Total Cells Counted 100, Neutrophils % (Manual) 88H, Lymphocytes % (Manual) 2L, Monocytes % (Manual) 6, Eosinophils % (Manual) 4H, Basophils % (Manual) 0, Band Neutrophils 0, Platelet Estimate DecreasedL, Platelet Morphology Normal, Hypochromasia 2+, Anisocytosis 1+, Sodium Level 144, Potassium Level 4.9, Chloride Level 114H, Carbon Dioxide Level 24, Anion Gap 6, Blood Urea Nitrogen 33H, Creatinine 1.3, Estimat Glomerular Filtration Rate 54.6, Glucose Level 162H, Calcium Level 8.9 06/21/19 09:10: Random Amikacin Level [Pending] Height (Feet): 5 Height (Inches): 8.00 Weight (Pounds): 188 General Appearance: lethargic EENT: normal ENT inspection Neck: normal alignment Cardiovascular: normal peripheral pulses, normal rate, regular rhythm Respiratory/Chest: chest wall non-tender, lungs clear, normal breath sounds Abdomen: normal bowel sounds, non tender, soft Extremities: normal inspection Edema: no edema noted Arm (L), no edema noted Arm (R), no edema noted Leg (L), no edema noted Leg (R), no edema noted Pedal (L), no edema noted Pedal (R), no edema noted Generalized Neurologic: motor weakness Skin: normal pigmentation, warm/dry Gato Viveros DO Jun 21, 2019 10:38
--- NOTE | 2019-06-21 10:40 | Diagnostic Imaging Report ---
EXAM: XR Abdomen, 2 Views CLINICAL HISTORY: TUBE PLCMT TECHNIQUE: Frontal view of the abdomen pelvis with upright view of the abdomen. COMPARISON: Abdominal radiograph on 10 07 2018 FINDINGS: Hardware: G-tube in place. Abdomen: Nonobstructive bowel gas pattern. No free air. Contrast injected through the G-tube is noted within the stomach. Probable oral contrast in the rectum. Bones: Normal. Soft tissues: Normal. Lower chest: Bibasilar opacities. IMPRESSION: Contrast injected through the G-tube is noted within the stomach, suggesting correct tube placement.
[2019-06-21] MEDS ORDERED: Albuterol/Ipratropium 3ml neb HHN PRN (11:00)
[2019-06-21 12:00] VITALS: BP 130/75
--- NOTE | 2019-06-21 12:42 | Surgery Progress Note ---
Surgery Progress Note Subjective Procedure Performed right subclavian central venous catheter removal Additional Comments There is noted bleeding after central line removal after PICC line placement. Further pressure was held and hemostasis was identified. G-tube replaced KUB noted appreciate GI Care Objective Last 24 Hour Vital Signs Date Time Temp Pulse Resp B/P (MAP) Pulse Ox O2 Delivery O2 Flow Rate FiO2 06/21/19 12:00 97.0 76 16 130/75 (93) 100 06/21/19 12:00 Mechanical Ventilator 06/21/19 12:00 35 06/21/19 11:10 68 18 35 06/21/19 09:29 73 17 35 06/21/19 08:00 96.4 74 16 131/64 (86) 99 06/21/19 08:00 Mechanical Ventilator 06/21/19 08:00 35 06/21/19 08:00 69 06/21/19 07:15 83 16 35 06/21/19 05:10 81 18 35 06/21/19 04:08 80 06/21/19 04:00 35 06/21/19 04:00 Mechanical Ventilator 06/21/19 04:00 97.9 73 16 143/66 (91) 100 06/21/19 03:10 78 16 35 06/21/19 00:55 76 16 35 06/21/19 00:00 96.4 75 16 114/65 (81) 99 06/21/19 00:00 35 06/21/19 00:00 Mechanical Ventilator 06/20/19 23:39 81 06/20/19 22:45 77 16 35 06/20/19 20:56 79 16 35 06/20/19 20:20 83 06/20/19 20:00 Mechanical Ventilator 06/20/19 20:00 35 06/20/19 20:00 97.3 82 16 137/85 (102) 100 06/20/19 18:55 83 18 35 06/20/19 17:00 80 18 35 06/20/19 16:00 96.4 85 16 132/48 (76) 100 06/20/19 16:00 82 06/20/19 16:00 Mechanical Ventilator 06/20/19 16:00 35 06/20/19 14:30 79 18 35 I&O Intake and Output 06/20/19 06/21/19 18:59 06:59 Intake Total 1262 ml 1162.43 ml Output Total 800 ml 600 ml Balance 462 ml 562.43 ml Intake Free Water 150 ml 100 ml IV Total 512 ml 622.43 ml Tube Feeding 600 ml 440 ml Output Urine Total 800 ml 600 ml # Bowel Movements 4 Dressing: dry Wound: clean Cardiovascular: RSR Respiratory: clear, decreased breath sounds Abdomen: soft, present bowel sounds, non-distended Extremities: no cyanosis Laboratory Tests Test 06/20/19 18:00 06/21/19 05:00 06/21/19 09:10 Random Vancomycin Level 27.6 ug/mL 23.7 ug/mL White Blood Count 10.6 K/UL (4.8-10.8) Red Blood Count 3.00 M/UL (4.70-6.10) L Hemoglobin 8.2 G/DL (14.2-18.0) L Hematocrit 26.1 % (42.0-52.0) L Mean Corpuscular Volume 87 FL (80-99) Mean Corpuscular Hemoglobin 27.4 PG (27.0-31.0) Mean Corpuscular Hemoglobin Concent 31.6 G/DL (32.0-36.0) L Red Cell Distribution Width 15.2 % (11.6-14.8) H Platelet Count 72 K/UL (150-450) L Mean Platelet Volume 8.5 FL (6.5-10.1) Neutrophils (%) (Auto) % (45.0-75.0) Lymphocytes (%) (Auto) % (20.0-45.0) Monocytes (%) (Auto) % (1.0-10.0) Eosinophils (%) (Auto) % (0.0-3.0) Basophils (%) (Auto) % (0.0-2.0) Differential Total Cells Counted 100 Neutrophils % (Manual) 88 % (45-75) H Lymphocytes % (Manual) 2 % (20-45) L Monocytes % (Manual) 6 % (1-10) Eosinophils % (Manual) 4 % (0-3) H Basophils % (Manual) 0 % (0-2) Band Neutrophils 0 % (0-8) Platelet Estimate Decreased L Platelet Morphology Normal Hypochromasia 2+ Anisocytosis 1+ Sodium Level 144 MMOL/L (136-145) Potassium Level 4.9 MMOL/L (3.5-5.1) Chloride Level 114 MMOL/L (98-107) H Carbon Dioxide Level 24 MMOL/L (21-32) Anion Gap 6 mmol/L (5-15) Blood Urea Nitrogen 33 mg/dL (7-18) H Creatinine 1.3 MG/DL (0.55-1.30) Estimat Glomerular Filtration Rate 54.6 mL/min (>60) Glucose Level 162 MG/DL (74-106) H Calcium Level 8.9 MG/DL (8.5-10.1) Random Amikacin Level 6.6 ug/mL Plan Problems: (1) Severe protein-calorie malnutrition Assessment & Plan: DAILY ESTIMATED NEEDS: Needs based on Critical care, underweight TF [employer] 56.8 30-35 kcals/kg 2248-1437 total kcals 1.25-2 g protein/kg 71-113.6 g total protein 25-30 mL/kg 9321-1005 total fluid mLs NUTRITION DIAGNOSIS: * Increased kcal/prot intake needs R/T sepsis and underweight status as evidenced by pt adm w/ critically elev WBC (35.7*), febrile, @68% [place] Body Weight. * Swallowing difficulty R/T respiratory status as evidenced by pt vent dep via trach, PEG dep. ENTERAL NUTRITION RECOMMENDATIONS: Nepro @45mL/hr x 22hr to provide 990mL, 1782kcal, 80g pro, 720mL free water -When Hemodynamically stable, start Nepro @ 15mL/hr for 6 hrs. -Advance as tolerated 10mL q 4-6 hrs to goal. -TF @goal meets 100% est needs. -Flush per MD/ HOB >30 degrees. ADDITIONAL RECOMMENDATIONS: * Calibrated bedscale weight for accurate CBW + weekly wt monitoring * Per SNF: Ht of 6'1", Wt 125# (05/2019) * TF recs as above when medically stable * Monitor for cont'd need of renal formula (K 5.5) * Monitor lytes and hydration status. (2) Feeding by G-tube (3) Respiratory failure, [id number] (4) Septic shock Assessment & Plan: hypotensive - improved tachycardic - improved labs as above improving PICC line placed And central line removed will follow with recs thank you (5) Severe sepsis (6) GT SITE LEAKING Assessment & Plan: Patient identified worsening G-tube site leakage and cellulitis. This has been noted on prior admissions which is cared for. Plan for placement as below Pt presents with contractures. Skin erosions to abdominal region, and multiple areas of non-blanching erythema. Skin erosion noted to abdomen extending around GT and mostly to L abdominal area, skin is grossly red and excoriated. Furuncle noted to L flank oozing moderate amt purulent exudate. Non-blanchable erythema without fluctuance noted to L lateral malleolus (L) 1.5cm x (W)3cm. Non-blanchable erythema without fluctuance noted to lateral L foot (L)1cm x (W) 1cm. Non-blanchable erythema noted to sacral cleft. No other skin concerns noted. Tx.Plan: Apply Zinc Oxide Paste to GT site and excoriated areas on abd daily and prn. Apply Betadine to Boil L flank Daily .Cover with Optifoam drsg. Change daily and prn. Apply Moisture Barrier Paste to sacrum. Cover with Optifoam drsg. Change every 3 days and prn. Apply Cavilon to Non-blanchable areas L foot and bilat heels. Cover each site with Optifoam drsg. Change every 7 days and prn. Reposition at least every 2hours or as tolerated. Place pillow between knees. Off-load heels with pillow. APM/RENO Mattress overlay. Quirino Bernard Jun 21, 2019 12:42
--- NOTE | 2019-06-21 13:17 | NUR ---
CASE MANAGEMENT: REVIEW 06/21/2019 SI:SEPSIS. T 97 HR 76 RR 16 B/P 130/75 SATS 100% ON MECH VENT FIO2 35 CL 114 BUN 33 GLU 162 IS:DEXTROSE IV @ 50 mL/HR PROTONIX IV Q12H ERTAPENEM IV Q24H AMIKACIN IV Q36H CARAFATE GT TID SDU
[2019-06-21] MEDS ORDERED: NS 275ml ONE (13:32)
[2019-06-21] MEDS ORDERED: D5NS 1000ml IV ONE (13:32)
[2019-06-21 16:00] VITALS: BP 135/89
[2019-06-21] MEDS ORDERED: Tubing IV Secondary IV ONE ×2 (17:02→17:03)
[2019-06-21] MEDS ORDERED: NS Irrig 1000ml ONE ×3 (17:02→17:10)
--- NOTE | 2019-06-21 19:20 | NUR ---
RESPIRATORY NOTE: PT RECEIVED STABLE ON CMV WITH CURRENT SETTINGS. AIRWAY IS SECURE AND PATENT. VENT CIRCUIT AND SX TUBING ARE SECURE AND OUT OF THE WAY. VENT ALARMS ARE ON AND AUDIBLE. NO S/S OF RESPIRATORY DISTRESS NOTED AT THIS TIME. WILL CONTINUE TO MONITOR.
--- NOTE | 2019-06-21 19:42 | Infectious Diseases Prog Note ---
Assessment/Plan Assessment/Plan Mr. Huffman is a 68 yo male with PMHx of of chronic resp failure trach/vent dependant, diffuse ulcerative esophagitis, peptic esophageal stricture, asthma, GERD, Dm2, CVA/TIA w/ hemiplegia, functional quadriplegia, CAD, CHF, ESBL UTI , GIB s/p multiple EGDs in the past, schizoaffective disorder, Dementia, hypothyroidism, malnutrition, non verbal, infected obstuctive ureterolithiasis/ w abscess s/p L NT palced 12/2018, encephalopathy, Alzheimer's disease, multiple admissions, subacute facility resident who was sent to the for hypotension and bradycardia. Septic Shock- likely 2ry to UTI and PNA- off pressors now off perssors now Hx of resistant infections Urine Cx 06/14/19 - >100k ESBL P, stuarti, ESBL P mirabilis (both S Ertapenem , ZOsyn) Blood Cx - NTD CXR show probable pna sp cx p Leukocytosis; SP Hypothermia; SP Chronic resp failure trach/vent dependant asthma Dm2 CVA/TIA w/ hemiplegia Functional quadriplegia CAD CHF GIB s/p multiple EGDs in the past Schizoaffective disorder Dementia Hypothyroidism Non verbal Alzheimer's disease PLAN: - Continue Amikacin #7/7 and Ertapenem #/-10and IV Vancomycin #7/-10 pending sp Cx -/ SP PO Vancomycin #3 -06/16 SP Flagyl #2 - monitor CBC and Temps - f/u sp cx Thank you for this consult. [facility] will continue to follow the patient with you during this hospitalization. Subjective Allergies: Coded Allergies: NO KNOWN DRUG ALLERGIES (Verified Allergy, Unknown, 09/11/16) Subjective afebrile no leukocytosis sp cx p Objective Vital Signs Last 24 Hour Vital Signs Date Time Temp Pulse Resp B/P (MAP) Pulse Ox O2 Delivery O2 Flow Rate FiO2 06/21/19 17:01 84 18 35 06/21/19 16:00 Mechanical Ventilator 06/21/19 16:00 97.7 90 16 135/89 (104) 98 06/21/19 16:00 87 06/21/19 16:00 35 06/21/19 15:18 91 17 35 06/21/19 13:19 87 18 35 06/21/19 12:00 77 06/21/19 12:00 97.0 76 16 130/75 (93) 100 06/21/19 12:00 Mechanical Ventilator 06/21/19 12:00 35 06/21/19 11:10 68 18 35 06/21/19 09:29 73 17 35 06/21/19 08:00 96.4 74 16 131/64 (86) 99 06/21/19 08:00 Mechanical Ventilator 06/21/19 08:00 35 06/21/19 08:00 69 06/21/19 07:15 83 16 35 06/21/19 05:10 81 18 35 06/21/19 04:08 80 06/21/19 04:00 35 06/21/19 04:00 Mechanical Ventilator 06/21/19 04:00 97.9 73 16 143/66 (91) 100 06/21/19 03:10 78 16 35 06/21/19 00:55 76 16 35 06/21/19 00:00 96.4 75 16 114/65 (81) 99 06/21/19 00:00 35 06/21/19 00:00 Mechanical Ventilator 06/20/19 23:39 81 06/20/19 22:45 77 16 35 06/20/19 20:56 79 16 35 06/20/19 20:20 83 06/20/19 20:00 Mechanical Ventilator 06/20/19 20:00 35 06/20/19 20:00 97.3 82 16 137/85 (102) 100 Height (Feet): 5 Height (Inches): 8.00 Weight (Pounds): 188 Objective Gen: On vent in IVU HEENT: NCAT, MMM, PERRL, No Oral lesion, no scleral icterus NECK: supple, No LAD, No JVD, Trached LUNGS: Coarse B/L, No W/C CARDS: RRR, S1, S2, No M/R/G, ABD: Soft, NT, ND, No R/G, + BS, No HSM, No Masses, PEG : Deferred Ext: C/C/E, Pulses 2+ B/L (DP, Rad): NEURO: A/O x 0, no following SKIN: Warm/dry, No rashes Microbiology Date/Time Source Procedure Growth Status 06/20/19 14:30 Sputum Gram Stain - Final Resulted 06/20/19 14:30 Sputum Sputum Culture Pending Resulted Laboratory Tests Test 06/21/19 05:00 06/21/19 09:10 06/21/19 17:45 White Blood Count 10.6 K/UL (4.8-10.8) Red Blood Count 3.00 M/UL (4.70-6.10) L Hemoglobin 8.2 G/DL (14.2-18.0) L Hematocrit 26.1 % (42.0-52.0) L Mean Corpuscular Volume 87 FL (80-99) Mean Corpuscular Hemoglobin 27.4 PG (27.0-31.0) Mean Corpuscular Hemoglobin Concent 31.6 G/DL (32.0-36.0) L Red Cell Distribution Width 15.2 % (11.6-14.8) H Platelet Count 72 K/UL (150-450) L Mean Platelet Volume 8.5 FL (6.5-10.1) Neutrophils (%) (Auto) % (45.0-75.0) Lymphocytes (%) (Auto) % (20.0-45.0) Monocytes (%) (Auto) % (1.0-10.0) Eosinophils (%) (Auto) % (0.0-3.0) Basophils (%) (Auto) % (0.0-2.0) Differential Total Cells Counted 100 Neutrophils % (Manual) 88 % (45-75) H Lymphocytes % (Manual) 2 % (20-45) L Monocytes % (Manual) 6 % (1-10) Eosinophils % (Manual) 4 % (0-3) H Basophils % (Manual) 0 % (0-2) Band Neutrophils 0 % (0-8) Platelet Estimate Decreased L Platelet Morphology Normal Hypochromasia 2+ Anisocytosis 1+ Sodium Level 144 MMOL/L (136-145) Potassium Level 4.9 MMOL/L (3.5-5.1) Chloride Level 114 MMOL/L (98-107) H Carbon Dioxide Level 24 MMOL/L (21-32) Anion Gap 6 mmol/L (5-15) Blood Urea Nitrogen 33 mg/dL (7-18) H Creatinine 1.3 MG/DL (0.55-1.30) Estimat Glomerular Filtration Rate 54.6 mL/min (>60) Glucose Level 162 MG/DL (74-106) H Calcium Level 8.9 MG/DL (8.5-10.1) Random Vancomycin Level 23.7 ug/mL 21.6 ug/mL Random Amikacin Level 6.6 ug/mL Current Medications Medications (Trade) Dose Ordered Sig/Wanda Route PRN Reason Start Time Stop Time Status Last Admin Dose Admin Acetaminophen (Tylenol) 650 mg Q4H PRN GT fever (temp>100.5F) 06/19/19 04:00 07/14/19 03:59 Albuterol/ Ipratropium (Albuterol/ Ipratropium) 3 ml Q4H PRN HHN Shortness of Breath 06/21/19 11:00 06/26/19 10:59 Amikacin Protocol (Amikacin pharmacy to dose) 1 ea DAILY PRN MISC PER RX PROTOCOL 06/19/19 09:00 07/14/19 16:44 Amikacin Sulfate 500 mg/Sodium Chloride 112 ml @ 112 mls/hr Q36H IV 06/21/19 21:00 06/28/19 20:59 Chlorhexidine Gluconate (Jasmin-Hex 2%) 1 applic DAILY@2000 TOPIC 06/20/19 20:00 07/20/19 19:59 06/20/19 20:29 Dextrose 1,000 ml @ 50 mls/hr Q20H IV 06/19/19 03:15 07/18/19 12:59 06/21/19 14:20 Ertapenem 1 gm/ Sodium Chloride 55 ml @ 110 mls/hr Q24H IV 06/19/19 21:00 06/25/19 20:59 06/20/19 20:30 Heparin Sodium (Porcine) (Heparin 5000 units/ml) 5,000 units EVERY 12 HOURS SUBQ 06/19/19 09:00 07/14/19 20:59 06/20/19 08:42 Levothyroxine Sodium (Synthroid) 88 mcg DAILY@0630 GT 06/22/19 06:30 07/20/19 06:29 Midodrine (Pro-Amatine) 2.5 mg THREE TIMES A DAY GT 06/19/19 13:00 07/17/19 12:59 Ondansetron HCl (Zofran) 4 mg Q6H PRN IVP Nausea & Vomiting 06/19/19 08:30 07/14/19 14:29 Pantoprazole (Protonix) 40 mg EVERY 12 HOURS IVP 06/21/19 09:00 07/21/19 08:59 06/21/19 09:25 Polyethylene Glycol (Miralax) 17 gm DAILYPRN PRN GT Constipation 06/19/19 14:30 07/14/19 14:29 Sucralfate (Carafate) 1 gm TID GT 06/21/19 09:00 07/21/19 08:59 06/21/19 17:27 Vancomycin HCl (Vanco rx to dose) 1 ea DAILY PRN MISC Per rx protocol 06/19/19 09:00 07/18/19 11:59 Zinc Oxide (Zinc Oxide) 1 applic DAILY TOPIC 06/21/19 09:00 07/21/19 08:59 06/21/19 09:25 Lisy Lai M.D. Jun 21, 2019 19:42
--- NOTE | 2019-06-21 19:45 | NUR ---
HAND-OFF: Report given to So ODILIA Gómez. Pt in stable condition.
--- NOTE | 2019-06-21 19:46 | NUR ---
NURSE NOTES: received pt from Iona HARTLEY., pt is sleeping and able to arouse. pt is obtunded, trach is intact in place. so dysrhythmia reported from last shift. left upper arm picc line in place clean, patent, and intact. Gtube site intact, and noted cellulites around the abdomen area. petty cath in place, call light within reach. will continue to monitor pt with plan of care.
[2019-06-21 20:00] VITALS: BP 128/58
[2019-06-21] MEDS: Dyna-Hex 2% Top Sol 2oz TOPIC SCH (20:25)
[2019-06-21] MEDS: Ertapenem 1 GM in NS 55 ML IV SCH (21:10)
[2019-06-21] MEDS: Amikacin 500 MG in NS 110 ML IV SCH (21:10)
[2019-06-22] VITALS (7 sets, daily range): BP systolic 101–144; BP diastolic 54–70
--- NOTE | 2019-06-22 05:15 | NUR ---
RESPIRATORY NOTE: PT REMAINED STABLE ON CURRENT CMV ORDERS. SX PRN WITH NO ADVERSE REACTION. VENT CIRCUIT IS SECURE AND OUT OF THE WAY. NO S/S OF RESPIRATORY DISTRESS NOTED.
--- NOTE | 2019-06-22 06:46 | General Progress Note ---
Assessment/Plan Problem List: (1) [facility] resident ICD Codes: Z59.3 - Problems related to living in residential institution SNOMED: 561477743 (2) GT SITE LEAKING (3) Alzheimer's dementia ICD Codes: G30.9 - Alzheimer's disease, unspecified SNOMED: 33499736 (4) Upper GI bleed ICD Codes: K92.2 - Upper gastrointestinal hemorrhage SNOMED: 48693770 (5) Severe erosive esophagitis (6) Malfunction of gastrostomy tube ICD Codes: K94.23 - Gastrostomy malfunction SNOMED: 039062926 (7) Chronic respiratory failure ICD Codes: J96.10 - Chronic respiratory failure, unspecified whether with hypoxia or hypercapnia SNOMED: 30316713 (8) Anemia ICD Codes: D64.9 - Anemia, unspecified SNOMED: 716378961 Status: unchanged Assessment/Plan: GT changed at the bedside to 20 Fr yesterday protonix 40 mg Q12 carafate fu CBC fu stool ob plan EGD on Sunday Subjective ROS Limited/Unobtainable: No Allergies: Coded Allergies: NO KNOWN DRUG ALLERGIES (Verified Allergy, Unknown, 09/11/16) Objective Last 24 Hour Vital Signs Date Time Temp Pulse Resp B/P (MAP) Pulse Ox O2 Delivery O2 Flow Rate FiO2 06/22/19 05:15 75 16 35 06/22/19 04:00 35 06/22/19 04:00 Mechanical Ventilator 06/22/19 04:00 97.5 98 16 108/70 (83) 97 06/22/19 03:39 82 06/22/19 03:16 89 16 35 06/22/19 01:15 99 22 35 06/22/19 00:00 91 06/22/19 00:00 Mechanical Ventilator 06/22/19 00:00 98.2 94 18 101/54 (70) 97 06/21/19 23:19 96 18 35 06/21/19 21:22 92 19 35 06/21/19 20:00 97.9 92 20 128/58 (81) 98 06/21/19 20:00 35 06/21/19 20:00 Mechanical Ventilator 06/21/19 19:48 94 06/21/19 19:20 93 18 35 06/21/19 17:01 84 18 35 06/21/19 16:00 Mechanical Ventilator 06/21/19 16:00 97.7 90 16 135/89 (104) 98 06/21/19 16:00 87 06/21/19 16:00 35 06/21/19 15:18 91 17 35 06/21/19 13:19 87 18 35 06/21/19 12:00 77 06/21/19 12:00 97.0 76 16 130/75 (93) 100 06/21/19 12:00 Mechanical Ventilator 06/21/19 12:00 35 06/21/19 11:10 68 18 35 06/21/19 09:29 73 17 35 06/21/19 08:00 96.4 74 16 131/64 (86) 99 06/21/19 08:00 Mechanical Ventilator 06/21/19 08:00 35 06/21/19 08:00 69 06/21/19 07:15 83 16 35 Intake and Output 06/21/19 06/22/19 19:00 07:00 Intake Total 1245.3 ml 1412 ml Output Total 600 ml 450 ml Balance 645.3 ml 962 ml Intake Free Water 150 ml 150 ml IV Total 600.3 ml 767 ml Tube Feeding 495 ml 495 ml Output Urine Total 600 ml 450 ml # Bowel Movements 2 Laboratory Tests 06/21/19 09:10: Random Amikacin Level 6.6 06/21/19 17:45: Random Vancomycin Level 21.6 Height (Feet): 5 Height (Inches): 8.00 Weight (Pounds): 189 General Appearance: lethargic EENT: normal ENT inspection Neck: supple Cardiovascular: normal rate Respiratory/Chest: decreased breath sounds Abdomen: normal bowel sounds, non tender, soft Extremities: non-tender Vitaliy Wilson MD Jun 22, 2019 06:46
--- NOTE | 2019-06-22 07:15 | NUR ---
NURSE NOTES: RECEIVED BED SIDE REPORT SO-RI RN OF NOC SHIFT. RECEIVED PT WITH HOB ELEVATED 45DEGREE ,NON-VERBAL TRACH TO VENT.PT TOLERATING WELL CURRENT VENT SETTINGS. RENDERED TRACH CARE & ORAL HYGIENE ,SX,D MOD AMT OF YELLOWISH SECRETIONS NOTE. PT WITH GT IN PLACE AND INTACT, NO RESIDUAL NOTED AT THIS TIME.PT TOLERATING WELL OSMOLITE1.2 @ 55CC/HRS.PT REPOSITIONED Q 2HRS TO PROVIDE COMFORT AND TO PREVENT FURTHERS SKIN BREAK DOWN.PT WITH F/C DRAINING WELL ,YELLOW URINE COLOR NOTE .DR GALAN CAME TO SEE THE PT.NO ACUTE DISTRESS NOTED AT THIS TIME. WILL CONT TO MONITOR.
--- NOTE | 2019-06-22 07:26 | NUR ---
HAND-OFF: Report given to Hola HARTLEY. pt is stable condition.
--- NOTE | 2019-06-22 08:22 | Pulmonology Progress Note ---
Assessment/Plan Assessment/Plan ASSESSMENT Septic shock, likely secondary to UTI and pneumonia UTI/pyelonephritis with Proteus and Providencia Pneumonia Acute on chronic respiratory failure VDRF/tracheostomy status Dysphagia, feeding by G-tube G tube site erythema/irritation Anemia of chronic disease History of GI bleeding Severe erosive esophagitis Hypothyroidism with elevated TSH Thrombocytopenia improving Severe protein calorie malnutrition PLAN OF CARE LUIS s/p pressors Vent support, pulmonary toilet Follow-up with CXR in am Repeat ABG in am Abx as per ID Echo with EF 55-60% BP support with midodrine Off IVF Aspiration precaution , G-tube feeding G tube site care culture G tube site if any drainage Protein supplement as per RD recommendation Monitor H&H with goal to keep Hgb above 7 , s/p 1 unit PRBC DVT, GI prophylaxis Monitor PLT count , improving Elevated TSH, increase Levothyroxine supportive care case discussed and evaluated by supervising physician Subjective Allergies: Coded Allergies: NO KNOWN DRUG ALLERGIES (Verified Allergy, Unknown, 09/11/16) Subjective no signs of resp distress remains afebrile , leuk resolved HH at baseiling creat down Objective Last 24 Hour Vital Signs Date Time Temp Pulse Resp B/P (MAP) Pulse Ox O2 Delivery O2 Flow Rate FiO2 06/22/19 07:50 77 18 35 06/22/19 05:15 75 16 35 06/22/19 04:00 35 06/22/19 04:00 Mechanical Ventilator 06/22/19 04:00 97.5 98 16 108/70 (83) 97 06/22/19 03:39 82 06/22/19 03:16 89 16 35 06/22/19 01:15 99 22 35 06/22/19 00:00 91 06/22/19 00:00 Mechanical Ventilator 06/22/19 00:00 98.2 94 18 101/54 (70) 97 06/21/19 23:19 96 18 35 06/21/19 21:22 92 19 35 06/21/19 20:00 97.9 92 20 128/58 (81) 98 06/21/19 20:00 35 06/21/19 20:00 Mechanical Ventilator 06/21/19 19:48 94 06/21/19 19:20 93 18 35 06/21/19 17:01 84 18 35 06/21/19 16:00 Mechanical Ventilator 06/21/19 16:00 97.7 90 16 135/89 (104) 98 06/21/19 16:00 87 06/21/19 16:00 35 06/21/19 15:18 91 17 35 06/21/19 13:19 87 18 35 06/21/19 12:00 77 06/21/19 12:00 97.0 76 16 130/75 (93) 100 06/21/19 12:00 Mechanical Ventilator 06/21/19 12:00 35 06/21/19 11:10 68 18 35 06/21/19 09:29 73 17 35 Intake and Output 06/21/19 06/22/19 19:00 07:00 Intake Total 1245.3 ml 1462 ml Output Total 600 ml 450 ml Balance 645.3 ml 1012 ml Intake Free Water 150 ml 150 ml IV Total 600.3 ml 817 ml Tube Feeding 495 ml 495 ml Output Urine Total 600 ml 450 ml # Bowel Movements 2 Objective General Appearance: no acute distress, other - bedbound, on vent AC 600-16-35 % , HEENT: normocephalic, atraumatic, anicteric, status post trach - Portex#8, secretions small e amount, thick, yellow color Respiratory/Chest: lungs clear, no respiratory distress, chest wall tender Cardiovascular: normal rate, regular rhythm - SR on tele , LUE PICC intact Abdomen: normal bowel sounds, soft, non tender, G tube site with erythema Extremities: no edema, pedal pulses normal Neurologic/Psychiatric: abnormal gait - bedridden , Left hemiparesis , responds to tactile stimuli only Musculoskeletal: atrophy - BLE Microbiology Date/Time Source Procedure Growth Status 06/21/19 12:00 Drainage Fluid Gram Stain - Final Resulted 06/21/19 12:00 Drainage Fluid Wound Culture - Preliminary NO GROWTH Resulted 06/20/19 14:30 Sputum Gram Stain - Final Resulted 06/20/19 14:30 Sputum Culture - Preliminary Gram Negative Alex Resulted Laboratory Tests 06/21/19 09:10: Random Amikacin Level 6.6 06/21/19 17:45: Random Vancomycin Level 21.6 06/22/19 06:40: White Blood Count [Pending], Red Blood Count [Pending], Hemoglobin [Pending], Hematocrit [Pending], Mean Corpuscular Volume [Pending], Mean Corpuscular Hemoglobin [Pending], Mean Corpuscular Hemoglobin Concent [Pending], Red Cell Distribution Width [Pending], Platelet Count [Pending], Mean Platelet Volume [ Pending], Neutrophils (%) (Auto) [Pending], Lymphocytes (%) (Auto) [Pending], Monocytes (%) (Auto) [Pending], Eosinophils (%) (Auto) [Pending], Basophils (%) (Auto) [Pending], Sodium Level [Pending], Potassium Level [Pending], Chloride Level [Pending], Carbon Dioxide Level [Pending], Blood Urea Nitrogen [Pending], Creatinine [Pending], Estimat Glomerular Filtration Rate [Pending], Glucose Level [Pending], Calcium Level [Pending] Current Medications Medications (Trade) Dose Ordered Sig/Wanda Route PRN Reason Start Time Stop Time Status Last Admin Dose Admin Acetaminophen (Tylenol) 650 mg Q4H PRN GT fever (temp>100.5F) 06/19/19 04:00 07/14/19 03:59 Albuterol/ Ipratropium (Albuterol/ Ipratropium) 3 ml Q4H PRN HHN Shortness of Breath 06/21/19 11:00 06/26/19 10:59 Amikacin Protocol (Amikacin pharmacy to dose) 1 ea DAILY PRN MISC PER RX PROTOCOL 06/19/19 09:00 07/14/19 16:44 Amikacin Sulfate 500 mg/Sodium Chloride 112 ml @ 112 mls/hr Q36H IV 06/21/19 21:00 06/28/19 20:59 06/21/19 21:10 Chlorhexidine Gluconate (Jasmin-Hex 2%) 1 applic DAILY@2000 TOPIC 06/20/19 20:00 07/20/19 19:59 06/21/19 20:25 Dextrose 1,000 ml @ 50 mls/hr Q20H IV 06/19/19 03:15 07/18/19 12:59 06/21/19 14:20 Ertapenem 1 gm/ Sodium Chloride 55 ml @ 110 mls/hr Q24H IV 06/19/19 21:00 06/25/19 20:59 06/21/19 21:10 Heparin Sodium (Porcine) (Heparin 5000 units/ml) 5,000 units EVERY 12 HOURS SUBQ 06/19/19 09:00 07/14/19 20:59 06/20/19 08:42 Levothyroxine Sodium (Synthroid) 88 mcg DAILY@0630 GT 06/22/19 06:30 07/20/19 06:29 06/22/19 06:02 Midodrine (Pro-Amatine) 2.5 mg THREE TIMES A DAY GT 06/19/19 13:00 07/17/19 12:59 Ondansetron HCl (Zofran) 4 mg Q6H PRN IVP Nausea & Vomiting 06/19/19 08:30 07/14/19 14:29 Pantoprazole (Protonix) 40 mg EVERY 12 HOURS IVP 06/21/19 09:00 07/21/19 08:59 06/21/19 21:10 Polyethylene Glycol (Miralax) 17 gm DAILYPRN PRN GT Constipation 06/19/19 14:30 07/14/19 14:29 Sucralfate (Carafate) 1 gm TID GT 06/21/19 09:00 07/21/19 08:59 06/21/19 17:27 Vancomycin HCl (Vanco rx to dose) 1 ea DAILY PRN MISC Per rx protocol 06/19/19 09:00 07/18/19 11:59 Zinc Oxide (Zinc Oxide) 1 applic DAILY TOPIC 06/21/19 09:00 07/21/19 08:59 06/21/19 09:25 Amina Garcia NP Jun 22, 2019 08:22
[2019-06-22 08:26] LABS: HEMATOCRIT 24.3 % (42.0-52.0); HEMOGLOBIN 7.8 G/DL (14.2-18.0); MEAN CORPUSCULAR VOLUME 86 FL (80-99); PLATELET COUNT 93 K/UL (150-450); RED BLOOD COUNT 2.84 M/UL (4.70-6.10); RED CELL DISTRIBUTION WIDTH 14.9 % (11.6-14.8); WHITE BLOOD COUNT 13.1 K/UL (4.8-10.8)
--- NOTE | 2019-06-22 08:39 | General Progress Note ---
Assessment/Plan Problem List: (1) Diabetes ICD Codes: E11.9 - Type 2 diabetes mellitus without complications SNOMED: 79397710 (2) HTN (hypertension) ICD Codes: I10 - Essential (primary) hypertension SNOMED: 99463070 (3) CVA (cerebral vascular accident) ICD Codes: I63.9 - Cerebral infarction, unspecified SNOMED: 451179479 (4) Severe protein-calorie malnutrition ICD Codes: E43 - Unspecified severe protein-calorie malnutrition SNOMED: 230388496 (5) Feeding by G-tube ICD Codes: Z93.1 - Gastrostomy status SNOMED: 229630206, 038012695 (6) Respiratory failure, pzdvy-rl-kvugwcv ICD Codes: J96.20 - Respiratory failure, ndsup-il-ltmrgqe SNOMED: 07124954 (7) Anemia ICD Codes: D64.9 - Anemia, unspecified SNOMED: 018943275 (8) Chronic respiratory failure ICD Codes: J96.10 - Chronic respiratory failure, unspecified whether with hypoxia or hypercapnia SNOMED: 79925101 (9) Septic shock ICD Codes: A41.9 - Sepsis, unspecified organism; R65.21 - Severe sepsis with septic shock SNOMED: 20429333 (10) Alzheimer's dementia ICD Codes: G30.9 - Alzheimer's disease, unspecified SNOMED: 22710096 (11) Severe sepsis ICD Codes: A41.9 - Sepsis, unspecified organism; R65.20 - Severe sepsis without septic shock SNOMED: 04753155 (12) Hypothyroidism ICD Codes: E03.9 - Hypothyroidism, unspecified SNOMED: 34178732 Status: unchanged Assessment/Plan: vent abx wean pressor cbc bmp am ltach eval Subjective Constitutional: Reports: weakness Allergies: Coded Allergies: NO KNOWN DRUG ALLERGIES (Verified Allergy, Unknown, 09/11/16) All Systems: reviewed and negative except above Subjective trach vent altered Objective Last 24 Hour Vital Signs Date Time Temp Pulse Resp B/P (MAP) Pulse Ox O2 Delivery O2 Flow Rate FiO2 06/22/19 08:00 35 06/22/19 08:00 Mechanical Ventilator 06/22/19 07:50 77 18 35 06/22/19 05:15 75 16 35 06/22/19 04:00 35 06/22/19 04:00 Mechanical Ventilator 06/22/19 04:00 97.5 98 16 108/70 (83) 97 06/22/19 03:39 82 06/22/19 03:16 89 16 35 06/22/19 01:15 99 22 35 06/22/19 00:00 91 06/22/19 00:00 Mechanical Ventilator 06/22/19 00:00 98.2 94 18 101/54 (70) 97 06/21/19 23:19 96 18 35 06/21/19 21:22 92 19 35 06/21/19 20:00 97.9 92 20 128/58 (81) 98 06/21/19 20:00 35 06/21/19 20:00 Mechanical Ventilator 06/21/19 19:48 94 06/21/19 19:20 93 18 35 06/21/19 17:01 84 18 35 06/21/19 16:00 Mechanical Ventilator 06/21/19 16:00 97.7 90 16 135/89 (104) 98 06/21/19 16:00 87 06/21/19 16:00 35 06/21/19 15:18 91 17 35 06/21/19 13:19 87 18 35 06/21/19 12:00 77 06/21/19 12:00 97.0 76 16 130/75 (93) 100 06/21/19 12:00 Mechanical Ventilator 06/21/19 12:00 35 06/21/19 11:10 68 18 35 06/21/19 09:29 73 17 35 Intake and Output 06/21/19 06/22/19 19:00 07:00 Intake Total 1245.3 ml 1462 ml Output Total 600 ml 450 ml Balance 645.3 ml 1012 ml Intake Free Water 150 ml 150 ml IV Total 600.3 ml 817 ml Tube Feeding 495 ml 495 ml Output Urine Total 600 ml 450 ml # Bowel Movements 2 Laboratory Tests 06/21/19 09:10: Random Amikacin Level 6.6 06/21/19 17:45: Random Vancomycin Level 21.6 06/22/19 06:40: White Blood Count 13.1H, Red Blood Count 2.84L, Hemoglobin 7.8L, Hematocrit 24.3L, Mean Corpuscular Volume 86, Mean Corpuscular Hemoglobin 27.6, Mean Corpuscular Hemoglobin Concent 32.2, Red Cell Distribution Width 14.9H, Platelet Count 93L, Mean Platelet Volume 9.3, Neutrophils (%) (Auto) , Lymphocytes (%) (Auto) , Monocytes (%) (Auto) , Eosinophils (%) (Auto) , Basophils (%) (Auto) , Neutrophils % (Manual) [Pending], Lymphocytes % (Manual) [Pending], Platelet Estimate [Pending], Platelet Morphology [Pending], Sodium Level [Pending], Potassium Level [Pending], Chloride Level [Pending], Carbon Dioxide Level [Pending], Blood Urea Nitrogen [Pending], Creatinine [Pending], Estimat Glomerular Filtration Rate [Pending], Glucose Level [Pending], Calcium Level [Pending] Height (Feet): 5 Height (Inches): 8.00 Weight (Pounds): 189 General Appearance: lethargic EENT: normal ENT inspection Neck: normal alignment Cardiovascular: normal peripheral pulses, normal rate, regular rhythm Respiratory/Chest: chest wall non-tender, lungs clear, normal breath sounds Abdomen: normal bowel sounds, non tender, soft Extremities: normal inspection Edema: no edema noted Arm (L), no edema noted Arm (R), no edema noted Leg (L), no edema noted Leg (R), no edema noted Pedal (L), no edema noted Pedal (R), no edema noted Generalized Neurologic: motor weakness Skin: normal pigmentation, warm/dry Gato Viveros DO Jun 22, 2019 08:38
[2019-06-22 08:50] LABS: ANION GAP 4 mmol/L (5-15); BLOOD UREA NITROGEN 31 mg/dL (7-18); CALCIUM 8.4 MG/DL (8.5-10.1); CARBON DIOXIDE 25 MMOL/L (21-32); CHLORIDE 112 MMOL/L (98-107); CREATININE 1.3 MG/DL (0.55-1.30); SODIUM 141 MMOL/L (136-145)
[2019-06-22] MEDS: Heparin 5000 units/ml inj SUBQ SCH ×2 (09:00→20:18)
--- NOTE | 2019-06-22 09:18 | NUR ---
RESPIRATORY NOTE: Received pt on vent with current vent settings: AC 16-600ml-35%-no peep. Pt is vent dependent with trach Portex cuffed size 8.0, secured with trach ties and trach guard. Pt opens eyes but unable to follow commands, no SOB or resp distress noted. Bari rhonchi breath sounds heard upon auscultation, suctioned moderate amount of thick owens yellow secretion without incidents. Alarms are set and audible, vent is plugged into the red outlet, ambu bag and spare trach kit at bedside. Vent circuits and suction tubing are secured and out of the way. Will continue to monitor pt.
[2019-06-22] MEDS: Pantoprazole Inj IVP SCH ×2 (09:24→20:18)
[2019-06-22] MEDS: Zinc Oxide Oint 2oz TOPIC SCH (09:24)
[2019-06-22] MEDS: Sucralfate 1gm tab GT SCH ×3 (09:25→17:27)
[2019-06-22] MEDS ORDERED: NS 275ml ONE (09:53)
[2019-06-22] MEDS ORDERED: Tubing IV Secondary IV ONE (09:53)
--- NOTE | 2019-06-22 09:59 | Nephrology Progress Note ---
Assessment/Plan Problem List: (1) Septic shock (2) Hypothyroidism (3) Upper GI bleed (4) Respiratory failure, qqjry-sw-nbqwgfo (5) Anemia Assessment Sepsis Shock on pressors GI Bleed Low Na and high K UTI HypoThyroidism Tracheostomy dependence Respiratory failure, wlimo-iz-ktrqyhf Alzheimer's Feeding by G-tube Plan off pressors- On Midodrine On GT feeding On Reglan fluid challenge as needed adjust IV fluids transfuse as needed Monitor lytes and renal parametrs urine studies per orders Subjective ROS Limited/Unobtainable: Yes Objective Objective Last 24 Hour Vital Signs Date Time Temp Pulse Resp B/P (MAP) Pulse Ox O2 Delivery O2 Flow Rate FiO2 06/22/19 09:18 86 19 35 06/22/19 08:00 35 06/22/19 08:00 97.2 92 19 139/62 (87) 100 06/22/19 08:00 Mechanical Ventilator 06/22/19 07:50 77 18 35 06/22/19 05:15 75 16 35 06/22/19 04:00 35 06/22/19 04:00 Mechanical Ventilator 06/22/19 04:00 97.5 98 16 108/70 (83) 97 06/22/19 03:39 82 06/22/19 03:16 89 16 35 06/22/19 01:15 99 22 35 06/22/19 00:00 91 06/22/19 00:00 Mechanical Ventilator 06/22/19 00:00 98.2 94 18 101/54 (70) 97 06/21/19 23:19 96 18 35 06/21/19 21:22 92 19 35 06/21/19 20:00 97.9 92 20 128/58 (81) 98 06/21/19 20:00 35 06/21/19 20:00 Mechanical Ventilator 06/21/19 19:48 94 06/21/19 19:20 93 18 35 06/21/19 17:01 84 18 35 06/21/19 16:00 Mechanical Ventilator 06/21/19 16:00 97.7 90 16 135/89 (104) 98 06/21/19 16:00 87 06/21/19 16:00 35 06/21/19 15:18 91 17 35 06/21/19 13:19 87 18 35 06/21/19 12:00 77 06/21/19 12:00 97.0 76 16 130/75 (93) 100 06/21/19 12:00 Mechanical Ventilator 06/21/19 12:00 35 06/21/19 11:10 68 18 35 Intake and Output 06/21/19 06/22/19 19:00 07:00 Intake Total 1245.3 ml 1462 ml Output Total 600 ml 450 ml Balance 645.3 ml 1012 ml Intake Free Water 150 ml 150 ml IV Total 600.3 ml 817 ml Tube Feeding 495 ml 495 ml Output Urine Total 600 ml 450 ml # Bowel Movements 2 Laboratory Tests 06/21/19 17:45: Random Vancomycin Level 21.6 06/22/19 06:40: White Blood Count 13.1H, Red Blood Count 2.84L, Hemoglobin 7.8L, Hematocrit 24.3L, Mean Corpuscular Volume 86, Mean Corpuscular Hemoglobin 27.6, Mean Corpuscular Hemoglobin Concent 32.2, Red Cell Distribution Width 14.9H, Platelet Count 93L, Mean Platelet Volume 9.3, Neutrophils (%) (Auto) , Lymphocytes (%) (Auto) , Monocytes (%) (Auto) , Eosinophils (%) (Auto) , Basophils (%) (Auto) , Differential Total Cells Counted 100, Neutrophils % ( Manual) 82H, Lymphocytes % (Manual) 8L, Monocytes % (Manual) 8, Eosinophils % ( Manual) 2, Basophils % (Manual) 0, Band Neutrophils 0, Platelet Estimate DecreasedL, Platelet Morphology Normal, Hypochromasia 3+, Anisocytosis 1+, Sodium Level 141, Potassium Level 5.0, Chloride Level 112H, Carbon Dioxide Level 25, Anion Gap 4L, Blood Urea Nitrogen 31H, Creatinine 1.3, Estimat Glomerular Filtration Rate 54.6, Glucose Level 85, Calcium Level 8.4L Height (Feet): 5 Height (Inches): 8.00 Weight (Pounds): 189 EENT: other - trach - vent Cardiovascular: normal rate Respiratory/Chest: decreased breath sounds Abdomen: soft Sav Salvador MD Jun 22, 2019 09:59
--- NOTE | 2019-06-22 11:46 | NUR ---
CASE MANAGEMENT: REVIEW 06/22/2019 SI:SEPSIS. T 97.2 HR 92 RR 19 B/P 139/62 SATS 100% ON MECH VENT FIO2 35 LABS: WBC 13.1 HGB 7.8 HCT 24.3 CL 112 BUN 31 CA 8.4 IS:DEXTROSE IV @ 50 mL/HR PROTONIX IV Q12H ERTAPENEM IV Q24H AMIKACIN IV Q36H CARAFATE GT TID SDU
--- NOTE | 2019-06-22 13:27 | Hematology/Onc Progress Note ---
Assessment/Plan Assessment/Plan ASSESSMENT AND RECOMMENDATIONS # Anemia of chronic disease due to underlying chronic medical issues, multifactorial --> Anemia w/u has been reviewed and c/w acd ferritin 635, tibc 160 --> No evidence of hemolysis is noted, peripheral smear has been reviewed. --> Hgb goal >7. Transfuse prn. --> Epogen or iron at this time is not particularly indicated --> unable to obtain consent, with no family --> r/o hemolysis as well --> hgb 7.5-->8-->8.7-->8.2-->7.8 --> ENDOSCOPY SUNDAY potentially # Leukocytosis. Likely related to underlying infection versus reactive process. patient with septic shock on admission --> Peripheral has been reviewed and no abnml cells noted at moment --> Medications have been reviewed --> Imaging has been reviewed. CXR shows Suboptimal positioning. No interval consolidation, overt edema or other acute cardiopulmonary findings. --> urine culture with ++uti on cultures provedencia --> Has been started on abx, empiric treatment (ertap/vanc) --> wbc is 36-->26k-->9k # Thrombocytopenia decreased since admission --> plt count 190-->123k-->101k-->95k-->93k --> abx for id # Septic shock poa --> on abx per id --> initially on pressors, now off # Upper GI vomiting bleed in prior admission --> currently appears to have resolved # Trach and PEG. --> chronic # Hyperkalemia --> as per renal # Dvt ppx heparin sq The timing of this note does not necessarily reflect the time of the patient was seen. Greatly appreciate consultation. Subjective Constitutional: Denies: no symptoms, chills, fever, malaise, weakness, other HEENT: Denies: no symptoms, eye pain, blurred vision, tearing, double vision, ear pain, ear discharge, nose pain, nose congestion, throat pain, throat swelling, mouth pain, mouth swelling, other Cardiovascular: Denies: no symptoms, chest pain, edema, irregular heart rate, lightheadedness, palpitations, syncope, other Respiratory: Denies: no symptoms, cough, shortness of breath, SOB with excertion, SOB at rest, sputum, wheezing, other Genitourinary: Denies: no symptoms, burning, discharge, frequency, flank pain, hematuria, incontinence, pain, urgency, other Neurologic/Psychiatric: Denies: no symptoms, anxiety, depressed, emotional problems, headache, numbness, paresthesia, pre-existing deficit, seizure, tingling, tremors, weakness, other Endocrine: Denies: no symptoms, excessive sweating, flushing, intolerance to cold, intolerance to heat, increased hunger, increased thirst, increased urine, unexplained weight gain, unexplained weight loss, other Allergies: Coded Allergies: NO KNOWN DRUG ALLERGIES (Verified Allergy, Unknown, 09/11/16) Subjective 06/17: blood transfusion completed, on low dose pressors, no bleeding noted 06/19: liya rn, no major events, cbc reviewed, tube feeds ongoing 06/22: no major changes, no bleeding or night sweats, on abx, in sariah Objective Objective Current Medications Medications (Trade) Dose Ordered Sig/Wanda Route PRN Reason Start Time Stop Time Status Last Admin Dose Admin Acetaminophen (Tylenol) 650 mg Q4H PRN GT fever (temp>100.5F) 06/19/19 04:00 07/14/19 03:59 Albuterol/ Ipratropium (Albuterol/ Ipratropium) 3 ml Q4H PRN HHN Shortness of Breath 06/21/19 11:00 06/26/19 10:59 Amikacin Protocol (Amikacin pharmacy to dose) 1 ea DAILY PRN MISC PER RX PROTOCOL 06/19/19 09:00 07/14/19 16:44 Amikacin Sulfate 500 mg/Sodium Chloride 112 ml @ 112 mls/hr Q36H IV 06/21/19 21:00 06/28/19 20:59 06/21/19 21:10 Chlorhexidine Gluconate (Jasmin-Hex 2%) 1 applic DAILY@2000 TOPIC 06/20/19 20:00 07/20/19 19:59 06/21/19 20:25 Dextrose 1,000 ml @ 50 mls/hr Q20H IV 06/19/19 03:15 07/18/19 12:59 06/22/19 13:17 Ertapenem 1 gm/ Sodium Chloride 55 ml @ 110 mls/hr Q24H IV 06/19/19 21:00 06/25/19 20:59 06/21/19 21:10 Heparin Sodium (Porcine) (Heparin 5000 units/ml) 5,000 units EVERY 12 HOURS SUBQ 06/19/19 09:00 07/14/19 20:59 06/20/19 08:42 Levothyroxine Sodium (Synthroid) 88 mcg DAILY@0630 GT 06/22/19 06:30 07/20/19 06:29 06/22/19 06:02 Midodrine (Pro-Amatine) 2.5 mg THREE TIMES A DAY GT 06/19/19 13:00 07/17/19 12:59 06/22/19 13:10 Ondansetron HCl (Zofran) 4 mg Q6H PRN IVP Nausea & Vomiting 06/19/19 08:30 07/14/19 14:29 Pantoprazole (Protonix) 40 mg EVERY 12 HOURS IVP 06/21/19 09:00 07/21/19 08:59 06/22/19 09:24 Polyethylene Glycol (Miralax) 17 gm DAILYPRN PRN GT Constipation 06/19/19 14:30 07/14/19 14:29 Sucralfate (Carafate) 1 gm TID GT 06/21/19 09:00 07/21/19 08:59 06/22/19 13:10 Vancomycin HCl (Vanco rx to dose) 1 ea DAILY PRN MISC Per rx protocol 06/19/19 09:00 07/18/19 11:59 Zinc Oxide (Zinc Oxide) 1 applic DAILY TOPIC 06/21/19 09:00 07/21/19 08:59 06/22/19 09:24 Last 24 Hour Vital Signs Date Time Temp Pulse Resp B/P (MAP) Pulse Ox O2 Delivery O2 Flow Rate FiO2 06/22/19 13:18 84 19 35 06/22/19 10:46 82 16 35 06/22/19 09:18 86 19 35 06/22/19 08:00 35 06/22/19 08:00 97.2 92 19 139/62 (87) 100 06/22/19 08:00 Mechanical Ventilator 06/22/19 07:51 84 06/22/19 07:50 77 18 35 06/22/19 05:15 75 16 35 06/22/19 04:00 35 06/22/19 04:00 Mechanical Ventilator 06/22/19 04:00 97.5 98 16 108/70 (83) 97 06/22/19 03:39 82 06/22/19 03:16 89 16 35 06/22/19 01:15 99 22 35 06/22/19 00:00 91 06/22/19 00:00 Mechanical Ventilator 06/22/19 00:00 98.2 94 18 101/54 (70) 97 06/21/19 23:19 96 18 35 06/21/19 21:22 92 19 35 06/21/19 20:00 97.9 92 20 128/58 (81) 98 06/21/19 20:00 35 06/21/19 20:00 Mechanical Ventilator 06/21/19 19:48 94 06/21/19 19:20 93 18 35 06/21/19 17:01 84 18 35 06/21/19 16:00 Mechanical Ventilator 06/21/19 16:00 97.7 90 16 135/89 (104) 98 06/21/19 16:00 87 06/21/19 16:00 35 06/21/19 15:18 91 17 35 06/21/19 13:19 87 18 35 06/21/19 12:00 77 06/21/19 12:00 97.0 76 16 130/75 (93) 100 06/21/19 12:00 Mechanical Ventilator 06/21/19 12:00 35 06/21/19 11:10 68 18 35 06/21/19 09:29 73 17 35 06/21/19 08:00 96.4 74 16 131/64 (86) 99 06/21/19 08:00 Mechanical Ventilator 06/21/19 08:00 35 06/21/19 08:00 69 06/21/19 07:15 83 16 35 06/21/19 05:10 81 18 35 06/21/19 04:08 80 06/21/19 04:00 35 06/21/19 04:00 Mechanical Ventilator 06/21/19 04:00 97.9 73 16 143/66 (91) 100 06/21/19 03:10 78 16 35 06/21/19 00:55 76 16 35 06/21/19 00:00 96.4 75 16 114/65 (81) 99 06/21/19 00:00 35 06/21/19 00:00 Mechanical Ventilator 06/20/19 23:39 81 06/20/19 22:45 77 16 35 06/20/19 20:56 79 16 35 06/20/19 20:20 83 06/20/19 20:00 Mechanical Ventilator 06/20/19 20:00 35 06/20/19 20:00 97.3 82 16 137/85 (102) 100 06/20/19 18:55 83 18 35 06/20/19 17:00 80 18 35 06/20/19 16:00 96.4 85 16 132/48 (76) 100 06/20/19 16:00 82 06/20/19 16:00 Mechanical Ventilator 06/20/19 16:00 35 06/20/19 14:30 79 18 35 Intake and Output 06/21/19 06/22/19 19:00 07:00 Intake Total 1245.3 ml 1462 ml Output Total 600 ml 450 ml Balance 645.3 ml 1012 ml Intake Free Water 150 ml 150 ml IV Total 600.3 ml 817 ml Tube Feeding 495 ml 495 ml Output Urine Total 600 ml 450 ml # Bowel Movements 2 Labs Test 06/20/19 01:00 06/20/19 11:30 06/20/19 18:00 06/21/19 05:00 White Blood Count 11.4 K/UL (4.8-10.8) 10.6 K/UL (4.8-10.8) Red Blood Count 2.98 M/UL (4.70-6.10) 3.00 M/UL (4.70-6.10) Hemoglobin 8.2 G/DL (14.2-18.0) 8.2 G/DL (14.2-18.0) Hematocrit 25.8 % (42.0-52.0) 26.1 % (42.0-52.0) Mean Corpuscular Volume 86 FL (80-99) 87 FL (80-99) Mean Corpuscular Hemoglobin 27.5 PG (27.0-31.0) 27.4 PG (27.0-31.0) Mean Corpuscular Hemoglobin Concent 31.8 G/DL (32.0-36.0) 31.6 G/DL (32.0-36.0) Red Cell Distribution Width 15.5 % (11.6-14.8) 15.2 % (11.6-14.8) Platelet Count 95 K/UL (150-450) 72 K/UL (150-450) Mean Platelet Volume 8.1 FL (6.5-10.1) 8.5 FL (6.5-10.1) Neutrophils (%) (Auto) % (45.0-75.0) % (45.0-75.0) Lymphocytes (%) (Auto) % (20.0-45.0) % (20.0-45.0) Monocytes (%) (Auto) % (1.0-10.0) % (1.0-10.0) Eosinophils (%) (Auto) % (0.0-3.0) % (0.0-3.0) Basophils (%) (Auto) % (0.0-2.0) % (0.0-2.0) Sodium Level 145 MMOL/L (136-145) 144 MMOL/L (136-145) Potassium Level 5.1 MMOL/L (3.5-5.1) 4.9 MMOL/L (3.5-5.1) Chloride Level 117 MMOL/L (98-107) 114 MMOL/L (98-107) Carbon Dioxide Level 20 MMOL/L (21-32) 24 MMOL/L (21-32) Anion Gap 8 mmol/L (5-15) 6 mmol/L (5-15) Blood Urea Nitrogen 34 mg/dL (7-18) 33 mg/dL (7-18) Creatinine 1.5 MG/DL (0.55-1.30) 1.3 MG/DL (0.55-1.30) Estimat Glomerular Filtration Rate 46.3 mL/min (>60) 54.6 mL/min (>60) Glucose Level 102 MG/DL (74-106) 162 MG/DL (74-106) Calcium Level 8.4 MG/DL (8.5-10.1) 8.9 MG/DL (8.5-10.1) Vancomycin Level Trough 34.3 ug/mL (5.0-12.0) Amikacin Level Peak 24.5 ug/mL (25.0-35.0) Random Vancomycin Level 27.6 ug/mL 23.7 ug/mL Differential Total Cells Counted 100 Neutrophils % (Manual) 88 % (45-75) Lymphocytes % (Manual) 2 % (20-45) Monocytes % (Manual) 6 % (1-10) Eosinophils % (Manual) 4 % (0-3) Basophils % (Manual) 0 % (0-2) Band Neutrophils 0 % (0-8) Platelet Estimate Decreased Platelet Morphology Normal Hypochromasia 2+ Anisocytosis 1+ Test 06/21/19 09:10 06/21/19 17:45 06/22/19 06:40 Random Amikacin Level 6.6 ug/mL Random Vancomycin Level 21.6 ug/mL White Blood Count 13.1 K/UL (4.8-10.8) Red Blood Count 2.84 M/UL (4.70-6.10) Hemoglobin 7.8 G/DL (14.2-18.0) Hematocrit 24.3 % (42.0-52.0) Mean Corpuscular Volume 86 FL (80-99) Mean Corpuscular Hemoglobin 27.6 PG (27.0-31.0) Mean Corpuscular Hemoglobin Concent 32.2 G/DL (32.0-36.0) Red Cell Distribution Width 14.9 % (11.6-14.8) Platelet Count 93 K/UL (150-450) Mean Platelet Volume 9.3 FL (6.5-10.1) Neutrophils (%) (Auto) % (45.0-75.0) Lymphocytes (%) (Auto) % (20.0-45.0) Monocytes (%) (Auto) % (1.0-10.0) Eosinophils (%) (Auto) % (0.0-3.0) Basophils (%) (Auto) % (0.0-2.0) Differential Total Cells Counted 100 Neutrophils % (Manual) 82 % (45-75) Lymphocytes % (Manual) 8 % (20-45) Monocytes % (Manual) 8 % (1-10) Eosinophils % (Manual) 2 % (0-3) Basophils % (Manual) 0 % (0-2) Band Neutrophils 0 % (0-8) Platelet Estimate Decreased Platelet Morphology Normal Hypochromasia 3+ Anisocytosis 1+ Sodium Level 141 MMOL/L (136-145) Potassium Level 5.0 MMOL/L (3.5-5.1) Chloride Level 112 MMOL/L (98-107) Carbon Dioxide Level 25 MMOL/L (21-32) Anion Gap 4 mmol/L (5-15) Blood Urea Nitrogen 31 mg/dL (7-18) Creatinine 1.3 MG/DL (0.55-1.30) Estimat Glomerular Filtration Rate 54.6 mL/min (>60) Glucose Level 85 MG/DL (74-106) Calcium Level 8.4 MG/DL (8.5-10.1) Height (Feet): 5 Height (Inches): 8.00 Weight (Pounds): 189 Objective PHYSICAL EXAMINATION: VITAL SIGNS: Have been reviewed HEENT: Trach/vent site ++ CHEST: Bibasilar rales CV: Regular rate and rhythm. GI: Positive bowel sounds. G-tube++ EXTREMITIES: + edema. NEUROLOGICAL: Reflexes equal on both sides. Nikos Nath MD Jun 22, 2019 13:27
--- NOTE | 2019-06-22 15:00 | NUR ---
NURSE NOTES: PLACED A TELEPHONE CALL TO DR GALAN ON HIS [employer]ERG[employer]Y [employer] AND LEFT A MESSAGE REGARDING PT HGB 7.8 & HCT 24.3 ALSO NO FAMILY AVAILABLE TO PROVIDE CONSENT FOR EGD PROCEDURE AND DR LOOMIS IS AWARE ABOUT HGB 7.8 AND HIS HGB GOAL > 7 TRANSFUSE PRN. AWAITING FOR DR GALAN TO CALL ME BACK.WILL CONT TO MONITOR.
--- NOTE | 2019-06-22 15:37 | Surgery Progress Note ---
Surgery Progress Note Subjective Procedure Performed right subclavian central venous catheter removal Additional Comments leukocytosis anemia g tube changed planned endoscopy tomorrow exam otherwise stable labs noted Objective Last 24 Hour Vital Signs Date Time Temp Pulse Resp B/P (MAP) Pulse Ox O2 Delivery O2 Flow Rate FiO2 06/22/19 15:10 84 16 35 06/22/19 14:21 97.2 84 17 116/69 (85) 100 06/22/19 13:18 84 19 35 06/22/19 12:00 35 06/22/19 12:00 97.9 84 17 116/69 (85) 100 06/22/19 12:00 Mechanical Ventilator 06/22/19 11:43 87 06/22/19 10:46 82 16 35 06/22/19 09:18 86 19 35 06/22/19 08:00 35 06/22/19 08:00 97.2 92 19 139/62 (87) 100 06/22/19 08:00 Mechanical Ventilator 06/22/19 07:51 84 06/22/19 07:50 77 18 35 06/22/19 05:15 75 16 35 06/22/19 04:00 35 06/22/19 04:00 Mechanical Ventilator 06/22/19 04:00 97.5 98 16 108/70 (83) 97 06/22/19 03:39 82 06/22/19 03:16 89 16 35 06/22/19 01:15 99 22 35 06/22/19 00:00 91 06/22/19 00:00 Mechanical Ventilator 06/22/19 00:00 98.2 94 18 101/54 (70) 97 06/21/19 23:19 96 18 35 06/21/19 21:22 92 19 35 06/21/19 20:00 97.9 92 20 128/58 (81) 98 06/21/19 20:00 35 06/21/19 20:00 Mechanical Ventilator 06/21/19 19:48 94 06/21/19 19:20 93 18 35 06/21/19 17:01 84 18 35 06/21/19 16:00 Mechanical Ventilator 06/21/19 16:00 97.7 90 16 135/89 (104) 98 06/21/19 16:00 87 06/21/19 16:00 35 I&O Intake and Output 06/21/19 06/22/19 18:59 06:59 Intake Total 1190.3 ml 1517 ml Output Total 600 ml 450 ml Balance 590.3 ml 1067 ml Intake Free Water 150 ml 150 ml IV Total 600.3 ml 817 ml Tube Feeding 440 ml 550 ml Output Urine Total 600 ml 450 ml # Bowel Movements 2 Dressing: dry Wound: clean Drains: other Cardiovascular: RSR Respiratory: decreased breath sounds Abdomen: present bowel sounds Extremities: no edema, no tenderness Laboratory Tests Test 06/21/19 17:45 06/22/19 06:40 Random Vancomycin Level 21.6 ug/mL White Blood Count 13.1 K/UL (4.8-10.8) H Red Blood Count 2.84 M/UL (4.70-6.10) L Hemoglobin 7.8 G/DL (14.2-18.0) L Hematocrit 24.3 % (42.0-52.0) L Mean Corpuscular Volume 86 FL (80-99) Mean Corpuscular Hemoglobin 27.6 PG (27.0-31.0) Mean Corpuscular Hemoglobin Concent 32.2 G/DL (32.0-36.0) Red Cell Distribution Width 14.9 % (11.6-14.8) H Platelet Count 93 K/UL (150-450) L Mean Platelet Volume 9.3 FL (6.5-10.1) Neutrophils (%) (Auto) % (45.0-75.0) Lymphocytes (%) (Auto) % (20.0-45.0) Monocytes (%) (Auto) % (1.0-10.0) Eosinophils (%) (Auto) % (0.0-3.0) Basophils (%) (Auto) % (0.0-2.0) Differential Total Cells Counted 100 Neutrophils % (Manual) 82 % (45-75) H Lymphocytes % (Manual) 8 % (20-45) L Monocytes % (Manual) 8 % (1-10) Eosinophils % (Manual) 2 % (0-3) Basophils % (Manual) 0 % (0-2) Band Neutrophils 0 % (0-8) Platelet Estimate Decreased L Platelet Morphology Normal Hypochromasia 3+ Anisocytosis 1+ Sodium Level 141 MMOL/L (136-145) Potassium Level 5.0 MMOL/L (3.5-5.1) Chloride Level 112 MMOL/L (98-107) H Carbon Dioxide Level 25 MMOL/L (21-32) Anion Gap 4 mmol/L (5-15) L Blood Urea Nitrogen 31 mg/dL (7-18) H Creatinine 1.3 MG/DL (0.55-1.30) Estimat Glomerular Filtration Rate 54.6 mL/min (>60) Glucose Level 85 MG/DL (74-106) Calcium Level 8.4 MG/DL (8.5-10.1) L Plan Problems: (1) Severe protein-calorie malnutrition Assessment & Plan: DAILY ESTIMATED NEEDS: Needs based on Critical care, underweight TF [employer] CLERK 56.8 30-35 kcals/kg 2272-9687 total kcals 1.25-2 g protein/kg 71-113.6 g total protein 25-30 mL/kg 9531-8662 total fluid mLs NUTRITION DIAGNOSIS: * Increased kcal/prot intake needs R/T sepsis and underweight status as evidenced by pt adm w/ critically elev WBC (35.7*), febrile, @68% [place] Body Weight. * Swallowing difficulty R/T respiratory status as evidenced by pt vent dep via trach, PEG dep. ENTERAL NUTRITION RECOMMENDATIONS: Nepro @45mL/hr x 22hr to provide 990mL, 1782kcal, 80g pro, 720mL free water -When Hemodynamically stable, start Nepro @ 15mL/hr for 6 hrs. -Advance as tolerated 10mL q 4-6 hrs to goal. -TF @goal meets 100% est needs. -Flush per MD/ HOB >30 degrees. ADDITIONAL RECOMMENDATIONS: * Calibrated bedscale weight for accurate CBW + weekly wt monitoring * Per SNF: Ht of 6'1", Wt 125# (05/2019) * TF recs as above when medically stable * Monitor for cont'd need of renal formula (K 5.5) * Monitor lytes and hydration status. (2) Feeding by G-tube Assessment & Plan: g tube changed planned endoscopy tomorrow (3) Respiratory failure, [id number] (4) Septic shock Assessment & Plan: hypotensive - improved tachycardic - improved labs as above improving PICC line placed And central line removed will follow with recs thank you (5) Severe sepsis (6) GT SITE LEAKING Assessment & Plan: Patient identified worsening G-tube site leakage and cellulitis. This has been noted on prior admissions which is cared for. Plan for placement as below Pt presents with contractures. Skin erosions to abdominal region, and multiple areas of non-blanching erythema. Skin erosion noted to abdomen extending around GT and mostly to L abdominal area, skin is grossly red and excoriated. Furuncle noted to L flank oozing moderate amt purulent exudate. Non-blanchable erythema without fluctuance noted to L lateral malleolus (L) 1.5cm x (W)3cm. Non-blanchable erythema without fluctuance noted to lateral L foot (L)1cm x (W) 1cm. Non-blanchable erythema noted to sacral cleft. No other skin concerns noted. Tx.Plan: Apply Zinc Oxide Paste to GT site and excoriated areas on abd daily and prn. Apply Betadine to Boil L flank Daily .Cover with Optifoam drsg. Change daily and prn. Apply Moisture Barrier Paste to sacrum. Cover with Optifoam drsg. Change every 3 days and prn. Apply Cavilon to Non-blanchable areas L foot and bilat heels. Cover each site with Optifoam drsg. Change every 7 days and prn. Reposition at least every 2hours or as tolerated. Place pillow between knees. Off-load heels with pillow. APM/RENO Mattress overlay. Quirino Bernard Jun 22, 2019 15:37
--- NOTE | 2019-06-22 19:10 | NUR ---
HAND-OFF: Report given to .JOAQUIM HARTLEY .
--- NOTE | 2019-06-22 19:11 | NUR ---
NURSE NOTES: received pt from Hola HARTLEY., pt is sleeping and able to arouse on the bed. left upper arm PICC line is intact, patent, and clean. petty cath is draining well, no SOB noted. trach in place. Gtube site intact and patent. call light within reach. will continue to monitor pt with plan of care.
[2019-06-22] MEDS: Dyna-Hex 2% Top Sol 2oz TOPIC SCH (20:17)
[2019-06-22] MEDS: Ertapenem 1 GM in NS 55 ML IV SCH (20:18)
[2019-06-23] VITALS: BP_SYST 110; BP_SYST 118; BP_DIAS 84
[2019-06-23 04:00] VITALS: BP 128/78
[2019-06-23 04:57] LABS: BASOPHILS % (AUTO) 0.5 % (0.0-2.0); EOSINOPHILS % (AUTO) 3.7 % (0.0-3.0); HEMATOCRIT 24.8 % (42.0-52.0); LYMPHOCYTES % (AUTO) 10.3 % (20.0-45.0); MEAN CORPUSCULAR VOLUME 86 FL (80-99); MONOCYTES % (AUTO) 12.4 % (1.0-10.0); NEUTROPHILS % (AUTO) 73.1 % (45.0-75.0); PLATELET COUNT 120 K/UL (150-450); RED BLOOD COUNT 2.89 M/UL (4.70-6.10); RED CELL DISTRIBUTION WIDTH 15.4 % (11.6-14.8); WHITE BLOOD COUNT 10.7 K/UL (4.8-10.8)
[2019-06-23 05:36] LABS: ALANINE AMINOTRANSFERASE 66 U/L (12-78); ALBUMIN 1.9 G/DL (3.4-5.0); ALBUMIN/GLOBULIN RATIO 0.5 (1.0-2.7); ALKALINE PHOSPHATASE 187 U/L (46-116); ANION GAP 3 mmol/L (5-15); ASPARTATE AMINO TRANSFERASE 52 U/L (15-37); BILIRUBIN,TOTAL 0.2 MG/DL (0.2-1.0); BLOOD UREA NITROGEN 28 mg/dL (7-18); CALCIUM 8.5 MG/DL (8.5-10.1); CARBON DIOXIDE 27 MMOL/L (21-32); CHLORIDE 109 MMOL/L (98-107); CREATININE 1.2 MG/DL (0.55-1.30); POTASSIUM 4.7 MMOL/L (3.5-5.1); SODIUM 139 MMOL/L (136-145)
[2019-06-23 05:54] LABS: PHOSPHORUS 3.2 MG/DL (2.5-4.9)
--- NOTE | 2019-06-23 06:33 | NUR ---
RESPIRATORY NOTE: Received pt on ordered vent settings. Pt airway is patent and secured. No resp distress noted. Suctioned pt prn. Vent alarms are on and audible. Vent is plugged into red outlet. Will monitor pt progress.
--- NOTE | 2019-06-23 06:38 | NUR ---
NURSE NOTES: attempted to call public guardian Ruth Calloway to obtain the consent for EGD today. will continue to try to contact the public guardian prior to procedure. unable to leave voice mail.
--- NOTE | 2019-06-23 07:43 | NUR ---
HAND-OFF: Report given to Deborah HARTLEY. will endorsed to keep contact the pt's public guardian
--- NOTE | 2019-06-23 07:45 | NUR ---
NURSE NOTES: Pt received from ODILIA Quiñones in stable condition with no cardiopulmonary distress noted. Pt is asleep in bed, trach to vent, non verbal, Portex 8, AC 16 TV 600 FiO2 35% with no Peep. Cellulitis noted around GT site. Victor catheter noted and in place for acute urinary retention, draining to gravity, yellow urine. Skin alterations noted. Pt has a ALEXI PICC. Bed in lowest position, alarm on, side rails up x2 and padded per seizure precaution, call light within reach. Will continue plan of care. Will continue to monitor.
[2019-06-23 08:00] VITALS: BP 145/74
[2019-06-23] MEDS ORDERED: Vancomycin 1gm/D5W 275ml IVPB SCH ×2 (08:00)
--- NOTE | 2019-06-23 08:00 | NUR ---
NURSE NOTES: Patient provided with oral care. Patient tolerated oral care well. Patient clean and dry. Bed in lowest setting, call light within reach, safety wheels engaged and bed alarm activated to zone 2.
[2019-06-23] MEDS: Sucralfate 1gm tab GT SCH ×3 (08:12→21:26)
[2019-06-23] MEDS: Heparin 5000 units/ml inj SUBQ SCH ×2 (09:00→20:12)
--- NOTE | 2019-06-23 09:02 | General Progress Note ---
Assessment/Plan Status: unchanged Assessment/Plan: ASSESSMENT AND RECOMMENDATIONS # Anemia of chronic disease due to underlying chronic medical issues, multifactorial --> Anemia w/u has been reviewed and c/w acd ferritin 635, tibc 160 --> No evidence of hemolysis is noted, peripheral smear has been reviewed. --> Hgb goal >7. Transfuse prn. --> Epogen or iron at this time is not particularly indicated --> unable to obtain consent, with no family --> r/o hemolysis as well --> hgb 7.5-->8-->8.7-->8.2-->7.8-->8 --> ENDOSCOPY SUNDAY potentially --> spep ordered given elev globulins, rouleaux formation on smear # Leukocytosis. Likely related to underlying infection versus reactive process. patient with septic shock on admission --> Peripheral has been reviewed--> rouleaux formation on smear --> Medications have been reviewed --> Imaging has been reviewed. CXR shows Suboptimal positioning. No interval consolidation, overt edema or other acute cardiopulmonary findings. --> urine culture with ++uti on cultures provedencia --> Has been started on abx, empiric treatment (ertap/vanc) --> wbc is 36-->26k-->9k # Thrombocytopenia decreased since admission --> plt count 190-->123k-->101k-->95k-->93k-->120k --> abx for id # Septic shock poa --> on abx per id --> initially on pressors, now off # Upper GI vomiting bleed in prior admission --> currently appears to have resolved # Trach and PEG. --> chronic # Hyperkalemia --> as per renal # Dvt ppx heparin sq The timing of this note does not necessarily reflect the time of the patient was seen. Greatly appreciate consultation. Subjective Constitutional: Denies: no symptoms, chills, diaphoresis, fever, malaise, weakness, other HEENT: Denies: no symptoms, eye pain, blurred vision, tearing, double vision, ear pain, ear discharge, nose pain, nose congestion, throat pain, throat swelling, mouth pain, mouth swelling, other Respiratory: Denies: no symptoms, cough, orthopnea, shortness of breath, SOB with excertion, SOB at rest, sputum, stridor, wheezing, other Gastrointestinal/Abdominal: Denies: no symptoms, abdomen distended, abdominal pain, black stools, tarry stools, blood in stool, constipated, diarrhea, difficulty swallowing, nausea, poor appetite, poor fluid intake, rectal bleeding , vomiting, other Genitourinary: Denies: no symptoms, burning, discharge, frequency, flank pain, hematuria, incontinence, pain, urgency, other Neurologic/Psychiatric: Denies: no symptoms, anxiety, depressed, emotional problems, headache, numbness, paresthesia, pre-existing deficit, seizure, tingling, tremors, weakness, other Hematologic/Lymphatic: Denies: no symptoms, anemia, easy bleeding, easy bruising, other Allergies: Coded Allergies: NO KNOWN DRUG ALLERGIES (Verified Allergy, Unknown, 09/11/16) Subjective 06/17: blood transfusion completed, on low dose pressors, no bleeding noted 06/19: dw rn, no major events, cbc reviewed, tube feeds ongoing 06/22: no major changes, no bleeding or night sweats, on abx, in sariah 06/23: no f/c, no bleeding, labs noted, in sariah, hgb 8, plt 120k Objective Last 24 Hour Vital Signs Date Time Temp Pulse Resp B/P (MAP) Pulse Ox O2 Delivery O2 Flow Rate FiO2 06/23/19 08:03 79 06/23/19 08:00 97.6 73 18 145/74 (97) 100 06/23/19 06:33 84 16 35 06/23/19 05:22 82 16 35 06/23/19 04:00 97.6 83 20 128/78 (95) 06/23/19 04:00 Mechanical Ventilator 06/23/19 04:00 35 06/23/19 03:43 85 06/23/19 02:41 84 16 35 06/23/19 01:00 87 17 35 06/23/19 00:00 Mechanical Ventilator 06/23/19 00:00 89 06/23/19 00:00 97.9 83 18 118/84 (95) 06/22/19 22:36 89 20 35 06/22/19 21:18 82 16 35 06/22/19 20:00 Mechanical Ventilator 06/22/19 20:00 35 06/22/19 20:00 87 06/22/19 20:00 97.7 85 18 129/59 (82) 100 06/22/19 19:29 85 17 35 06/22/19 16:45 91 17 35 06/22/19 16:00 88 06/22/19 16:00 35 06/22/19 16:00 97.7 88 18 144/68 (93) 100 06/22/19 16:00 Mechanical Ventilator 06/22/19 15:10 84 16 35 06/22/19 14:21 97.2 84 17 116/69 (85) 100 06/22/19 13:18 84 19 35 06/22/19 12:00 35 06/22/19 12:00 97.9 84 17 116/69 (85) 100 06/22/19 12:00 Mechanical Ventilator 06/22/19 11:43 87 06/22/19 10:46 82 16 35 06/22/19 09:18 86 19 35 Intake and Output 06/22/19 06/23/19 19:00 07:00 Intake Total 1310 ml 1065 ml Output Total 400 ml 740 ml Balance 910 ml 325 ml Intake Free Water 200 ml 100 ml IV Total 450 ml 745 ml Tube Feeding 660 ml 220 ml Output Urine Total 400 ml 740 ml # Bowel Movements 4 1 Laboratory Tests 06/23/19 04:00: White Blood Count 10.7, Red Blood Count 2.89L, Hemoglobin 8.0L, Hematocrit 24.8L , Mean Corpuscular Volume 86, Mean Corpuscular Hemoglobin 27.8, Mean Corpuscular Hemoglobin Concent 32.4, Red Cell Distribution Width 15.4H, Platelet Count 120L, Mean Platelet Volume 8.7, Neutrophils (%) (Auto) 73.1, Lymphocytes (%) (Auto) 10.3L, Monocytes (%) (Auto) 12.4H, Eosinophils (%) (Auto ) 3.7H, Basophils (%) (Auto) 0.5, Prothrombin Time 10.5, Prothromb Time International Ratio 1.0, Activated Partial Thromboplast Time 28, Sodium Level 139, Potassium Level 4.7, Chloride Level 109H, Carbon Dioxide Level 27, Anion Gap 3L, Blood Urea Nitrogen 28H, Creatinine 1.2, Estimat Glomerular Filtration Rate 59.9, Glucose Level 83, Calcium Level 8.5, Phosphorus Level 3.2, Magnesium Level 1.9, Total Bilirubin 0.2, Aspartate Amino Transf (AST/SGOT) 52H, Alanine Aminotransferase (ALT/SGPT) 66, Alkaline Phosphatase 187H, C-Reactive Protein, Quantitative 4.4H, Pro-B-Type Natriuretic Peptide 9894H, Total Protein 5.8L, Albumin 1.9L, Globulin 3.9, Albumin/Globulin Ratio 0.5L, Random Vancomycin Level 15.4 Height (Feet): 5 Height (Inches): 8.00 Weight (Pounds): 191 Objective PHYSICAL EXAMINATION: VITAL SIGNS: Have been reviewed HEENT: Trach/vent site ++ CHEST: Bibasilar rales CV: Regular rate and rhythm. GI: Positive bowel sounds. G-tube++ EXTREMITIES: + edema. NEUROLOGICAL: Reflexes equal on both sides. Nikos Nath MD Jun 23, 2019 09:02
[2019-06-23] MEDS: Zinc Oxide Oint 2oz TOPIC SCH (09:03)
[2019-06-23] MEDS: Pantoprazole Inj IVP SCH ×2 (09:03→20:12)
--- NOTE | 2019-06-23 09:05 | General Progress Note ---
Assessment/Plan Problem List: (1) Diabetes ICD Codes: E11.9 - Type 2 diabetes mellitus without complications SNOMED: 31668154 (2) HTN (hypertension) ICD Codes: I10 - Essential (primary) hypertension SNOMED: 79961055 (3) CVA (cerebral vascular accident) ICD Codes: I63.9 - Cerebral infarction, unspecified SNOMED: 383026883 (4) Severe protein-calorie malnutrition ICD Codes: E43 - Unspecified severe protein-calorie malnutrition SNOMED: 538555885 (5) Feeding by G-tube ICD Codes: Z93.1 - Gastrostomy status SNOMED: 617917682, 256210778 (6) Respiratory failure, pwxjz-hw-apzxcqx ICD Codes: J96.20 - Respiratory failure, kuccw-ui-frplkap SNOMED: 27605180 (7) Anemia ICD Codes: D64.9 - Anemia, unspecified SNOMED: 303222265 (8) Chronic respiratory failure ICD Codes: J96.10 - Chronic respiratory failure, unspecified whether with hypoxia or hypercapnia SNOMED: 65009547 (9) Septic shock ICD Codes: A41.9 - Sepsis, unspecified organism; R65.21 - Severe sepsis with septic shock SNOMED: 71496172 (10) Alzheimer's dementia ICD Codes: G30.9 - Alzheimer's disease, unspecified SNOMED: 00459703 (11) Severe sepsis ICD Codes: A41.9 - Sepsis, unspecified organism; R65.20 - Severe sepsis without septic shock SNOMED: 93413745 (12) Hypothyroidism ICD Codes: E03.9 - Hypothyroidism, unspecified SNOMED: 58715349 Status: unchanged Assessment/Plan: vent abx wean pressor cbc bmp am ltach eval Subjective Constitutional: Reports: weakness Allergies: Coded Allergies: NO KNOWN DRUG ALLERGIES (Verified Allergy, Unknown, 09/11/16) All Systems: reviewed and negative except above Subjective trach vent altered Objective Last 24 Hour Vital Signs Date Time Temp Pulse Resp B/P (MAP) Pulse Ox O2 Delivery O2 Flow Rate FiO2 06/23/19 08:03 79 06/23/19 08:00 97.6 73 18 145/74 (97) 100 06/23/19 06:33 84 16 35 06/23/19 05:22 82 16 35 06/23/19 04:00 97.6 83 20 128/78 (95) 19 06/23/19 04:00 Mechanical Ventilator 06/23/19 04:00 35 06/23/19 03:43 85 06/23/19 02:41 84 16 35 06/23/19 01:00 87 17 35 06/23/19 00:00 Mechanical Ventilator 06/23/19 00:00 89 06/23/19 00:00 97.9 83 18 118/84 (95) 19 06/22/19 22:36 89 20 35 06/22/19 21:18 82 16 35 06/22/19 20:00 Mechanical Ventilator 06/22/19 20:00 35 06/22/19 20:00 87 06/22/19 20:00 97.7 85 18 129/59 (82) 100 06/22/19 19:29 85 17 35 06/22/19 16:45 91 17 35 06/22/19 16:00 88 06/22/19 16:00 35 06/22/19 16:00 97.7 88 18 144/68 (93) 100 06/22/19 16:00 Mechanical Ventilator 06/22/19 15:10 84 16 35 06/22/19 14:21 97.2 84 17 116/69 (85) 100 06/22/19 13:18 84 19 35 06/22/19 12:00 35 06/22/19 12:00 97.9 84 17 116/69 (85) 100 06/22/19 12:00 Mechanical Ventilator 06/22/19 11:43 87 06/22/19 10:46 82 16 35 06/22/19 09:18 86 19 35 Intake and Output 06/22/19 06/23/19 19:00 07:00 Intake Total 1310 ml 1065 ml Output Total 400 ml 740 ml Balance 910 ml 325 ml Intake Free Water 200 ml 100 ml IV Total 450 ml 745 ml Tube Feeding 660 ml 220 ml Output Urine Total 400 ml 740 ml # Bowel Movements 4 1 Laboratory Tests 06/23/19 04:00: White Blood Count 10.7, Red Blood Count 2.89L, Hemoglobin 8.0L, Hematocrit 24.8L , Mean Corpuscular Volume 86, Mean Corpuscular Hemoglobin 27.8, Mean Corpuscular Hemoglobin Concent 32.4, Red Cell Distribution Width 15.4H, Platelet Count 120L, Mean Platelet Volume 8.7, Neutrophils (%) (Auto) 73.1, Lymphocytes (%) (Auto) 10.3L, Monocytes (%) (Auto) 12.4H, Eosinophils (%) (Auto ) 3.7H, Basophils (%) (Auto) 0.5, Prothrombin Time 10.5, Prothromb Time International Ratio 1.0, Activated Partial Thromboplast Time 28, Sodium Level 139, Potassium Level 4.7, Chloride Level 109H, Carbon Dioxide Level 27, Anion Gap 3L, Blood Urea Nitrogen 28H, Creatinine 1.2, Estimat Glomerular Filtration Rate 59.9, Glucose Level 83, Calcium Level 8.5, Phosphorus Level 3.2, Magnesium Level 1.9, Total Bilirubin 0.2, Aspartate Amino Transf (AST/SGOT) 52H, Alanine Aminotransferase (ALT/SGPT) 66, Alkaline Phosphatase 187H, C-Reactive Protein, Quantitative 4.4H, Pro-B-Type Natriuretic Peptide 9894H, Total Protein 5.8L, Albumin 1.9L, Globulin 3.9, Albumin/Globulin Ratio 0.5L, Random Vancomycin Level 15.4 Height (Feet): 5 Height (Inches): 8.00 Weight (Pounds): 191 General Appearance: lethargic EENT: normal ENT inspection Neck: normal alignment Cardiovascular: normal peripheral pulses, normal rate, regular rhythm Respiratory/Chest: chest wall non-tender, lungs clear, normal breath sounds Abdomen: normal bowel sounds, non tender, soft Extremities: normal inspection Edema: no edema noted Arm (L), no edema noted Arm (R), no edema noted Leg (L), no edema noted Leg (R), no edema noted Pedal (L), no edema noted Pedal (R), no edema noted Generalized Neurologic: motor weakness Skin: normal pigmentation, warm/dry Gato Viveros DO Jun 23, 2019 09:05
--- NOTE | 2019-06-23 09:53 | NUR ---
NURSE NOTES: Spoke to Phan/Pharmacist regarding amikacin trough. He said he will retime it.
[2019-06-23] MEDS: Amikacin 500 MG in NS 110 ML IV SCH (10:49)
--- NOTE | 2019-06-23 10:58 | Nephrology Progress Note ---
Assessment/Plan Problem List: (1) Septic shock (2) Hypothyroidism (3) Upper GI bleed (4) Respiratory failure, [id number] (5) Anemia Assessment Sepsis Shock on pressors GI Bleed Low Na and high K UTI HypoThyroidism Tracheostomy dependence Respiratory failure, mpfft-hz-eiqigmu Alzheimer's Feeding by G-tube Plan off pressors- On Midodrine On GT feeding On Reglan fluid challenge as needed adjust IV fluids transfuse as needed Monitor lytes and renal parametrs urine studies per orders Subjective ROS Limited/Unobtainable: Yes Objective Objective Last 24 Hour Vital Signs Date Time Temp Pulse Resp B/P (MAP) Pulse Ox O2 Delivery O2 Flow Rate FiO2 06/23/19 09:14 83 16 35 06/23/19 08:03 79 06/23/19 08:00 97.6 73 18 145/74 (97) 100 06/23/19 08:00 Mechanical Ventilator 06/23/19 06:33 84 16 35 06/23/19 05:22 82 16 35 06/23/19 04:00 97.6 83 20 128/78 (95) 19 06/23/19 04:00 Mechanical Ventilator 06/23/19 04:00 35 06/23/19 03:43 85 06/23/19 02:41 84 16 35 06/23/19 01:00 87 17 35 06/23/19 00:00 Mechanical Ventilator 06/23/19 00:00 89 06/23/19 00:00 97.9 83 18 118/84 (95) 19 06/22/19 22:36 89 20 35 06/22/19 21:18 82 16 35 06/22/19 20:00 Mechanical Ventilator 06/22/19 20:00 35 06/22/19 20:00 87 06/22/19 20:00 97.7 85 18 129/59 (82) 100 06/22/19 19:29 85 17 35 06/22/19 16:45 91 17 35 06/22/19 16:00 88 06/22/19 16:00 35 06/22/19 16:00 97.7 88 18 144/68 (93) 100 06/22/19 16:00 Mechanical Ventilator 06/22/19 15:10 84 16 35 06/22/19 14:21 97.2 84 17 116/69 (85) 100 06/22/19 13:18 84 19 35 06/22/19 12:00 35 06/22/19 12:00 97.9 84 17 116/69 (85) 100 06/22/19 12:00 Mechanical Ventilator 06/22/19 11:43 87 Intake and Output 06/22/19 06/23/19 19:00 07:00 Intake Total 1310 ml 1065 ml Output Total 400 ml 740 ml Balance 910 ml 325 ml Intake Free Water 200 ml 100 ml IV Total 450 ml 745 ml Tube Feeding 660 ml 220 ml Output Urine Total 400 ml 740 ml # Bowel Movements 4 1 Laboratory Tests 06/23/19 04:00: White Blood Count 10.7, Red Blood Count 2.89L, Hemoglobin 8.0L, Hematocrit 24.8L , Mean Corpuscular Volume 86, Mean Corpuscular Hemoglobin 27.8, Mean Corpuscular Hemoglobin Concent 32.4, Red Cell Distribution Width 15.4H, Platelet Count 120L, Mean Platelet Volume 8.7, Neutrophils (%) (Auto) 73.1, Lymphocytes (%) (Auto) 10.3L, Monocytes (%) (Auto) 12.4H, Eosinophils (%) (Auto ) 3.7H, Basophils (%) (Auto) 0.5, Prothrombin Time 10.5, Prothromb Time International Ratio 1.0, Activated Partial Thromboplast Time 28, Sodium Level 139, Potassium Level 4.7, Chloride Level 109H, Carbon Dioxide Level 27, Anion Gap 3L, Blood Urea Nitrogen 28H, Creatinine 1.2, Estimat Glomerular Filtration Rate 59.9, Glucose Level 83, Calcium Level 8.5, Phosphorus Level 3.2, Magnesium Level 1.9, Total Bilirubin 0.2, Aspartate Amino Transf (AST/SGOT) 52H, Alanine Aminotransferase (ALT/SGPT) 66, Alkaline Phosphatase 187H, C-Reactive Protein, Quantitative 4.4H, Pro-B-Type Natriuretic Peptide 9894H, Total Protein 5.8L, Albumin 1.9L, Globulin 3.9, Albumin/Globulin Ratio 0.5L, Random Vancomycin Level 15.4 06/23/19 08:40: Amikacin Level Trough 4.8 06/23/19 09:14: Arterial Blood pH 7.488H, Arterial Blood Partial Pressure CO2 30.9L, Arterial Blood Partial Pressure O2 152.0H, Arterial Blood HCO3 22.9, Arterial Blood Oxygen Saturation 98.8, Arterial Blood Base Excess -0.2, Ger Test Positive 06/23/19 09:18: Albumin/Globulin Ratio [Pending], Urine Total Protein [Pending], Urine Albumin ( %) [Pending], Urine Okvyl-7-Orjsgigfq (%) [Pending], Urine Sdopi-9-Tjdxplfkl (% ) [Pending], Urine Beta-Globulin (%) [Pending], Urine Gamma Globulin (%) [ Pending], Ur Protein Electrophoresis M-Emanuel [Pending], Urine Protein Electrophoresis Intrp [Pending], Total Protein (PEP) [Pending], Albumin (PEP) [ Pending], Globulin (PEP) [Pending], Njewe-1-Xfgmklixk [Pending], Alpha-2- Globulins [Pending], Beta Globulins [Pending], Beta Gamma Globulin [Pending], PEP Abnormal Protein Bands [Pending], Protein Electrophoresis Interpret [Pending ], Hepatitis A IgM Antibody [Pending], Hepatitis B Surface Antigen [Pending], Hepatitis B Core IgM Antibody [Pending], Hepatitis C Antibody [Pending], HIV (1& 2) Antibody Rapid Negative Height (Feet): 5 Height (Inches): 8.00 Weight (Pounds): 191 General Appearance: no apparent distress EENT: other - trach Cardiovascular: tachycardia Respiratory/Chest: decreased breath sounds Abdomen: distended Sav Salvador MD Jun 23, 2019 10:58
--- NOTE | 2019-06-23 10:59 | NUR ---
Social Service Note During February admission 02/21/19 KATRINA confirmed Sofia Morrow no longer works for the [employer]. To obtain consents or to discuss transfers staff must call the main line [phone] and ask for the duty worker for unit 2. KATRINA attempted to call main line to determine if case has been reassigned at this time. Due to the the office of the [facility] is closed. Will follow up tomorrow. If the procedure is an emergency MD can document necessity, risk and benefits and provide consent.
--- NOTE | 2019-06-23 11:19 | NUR ---
NURSE NOTES: Tried to call Ruth Calloway for consent, but no answer. Unable to leave voicemail. Charge nurse/Ambrocio made aware. Dr. Wilson aware.
--- NOTE | 2019-06-23 11:29 | Diagnostic Imaging Report ---
Indication: Shortness of breath Technique: One view of the chest Comparison: Post PICC chest radiograph 06/20/2019 Findings: Bilateral right greater than left pleural effusions are again demonstrated. Interim removal of previously demonstrated central venous catheter. There is a left arm PICC. Bilateral interstitial and airspace edema persists, unchanged Impression: Interim central venous catheter removal. Otherwise unchanged over 3 days
--- NOTE | 2019-06-23 11:59 | Pulmonolgy Critical Care Note ---
Critical Care - Asmt/Plan Problems: (1) Septic shock (2) Pyelonephritis (3) Chronic respiratory failure (4) Alzheimer's dementia (5) Severe erosive esophagitis (6) Feeding by G-tube (7) Diabetes (8) CVA (cerebral vascular accident) Respiratory: monitor respiratory rate, adjust FIO2, CXR Cardiac: continue pressors, continue to monitor HR/BP Renal: F/U I&O Infectious Disease: check cultures, continue antibiotics Gastrointestinal: hold feedings Endocrine: monitor blood sugar Hematologic: monitor H/H, transfuse if hgb<8.5 Neurologic: PRN Morphine, keep patient comfortable Affect: PRN ativan Prophylaxis: Protonix Notes Reviewed: director craft center, 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 with: nurses, consultants, patient case managervaccine manager - Objective Last 24 Hour Vital Signs Date Time Temp Pulse Resp B/P (MAP) Pulse Ox O2 Delivery O2 Flow Rate FiO2 06/23/19 11:22 35 06/23/19 09:14 83 16 35 06/23/19 08:03 79 06/23/19 08:00 97.6 73 18 145/74 (97) 100 06/23/19 08:00 Mechanical Ventilator 06/23/19 06:33 84 16 35 06/23/19 05:22 82 16 35 06/23/19 04:00 97.6 83 20 128/78 (95) 06/23/19 04:00 Mechanical Ventilator 06/23/19 04:00 35 06/23/19 03:43 85 06/23/19 02:41 84 16 35 06/23/19 01:00 87 17 35 06/23/19 00:00 Mechanical Ventilator 06/23/19 00:00 89 06/23/19 00:00 97.9 83 18 118/84 (95) 19 06/22/19 22:36 89 20 35 06/22/19 21:18 82 16 35 06/22/19 20:00 Mechanical Ventilator 06/22/19 20:00 35 06/22/19 20:00 87 06/22/19 20:00 97.7 85 18 129/59 (82) 100 06/22/19 19:29 85 17 35 06/22/19 16:45 91 17 35 06/22/19 16:00 88 06/22/19 16:00 35 06/22/19 16:00 97.7 88 18 144/68 (93) 100 06/22/19 16:00 Mechanical Ventilator 06/22/19 15:10 84 16 35 06/22/19 14:21 97.2 84 17 116/69 (85) 100 06/22/19 13:18 84 19 35 06/22/19 12:00 35 06/22/19 12:00 97.9 84 17 116/69 (85) 100 06/22/19 12:00 Mechanical Ventilator Status: awake Condition: critical HEENT: atraumatic Lungs: clear Heart: HR/BP stable Abdomen: soft, non-tender Extremities: edema Micro: Microbiology Date/Time Source Procedure Growth Status 06/21/19 12:00 Drainage Fluid Gram Stain - Final Resulted 06/21/19 12:00 Wound Culture - Preliminary Gram Negative Bacillus 1 Gram Negative Bacillus 2 Tea Albicans Resulted 06/20/19 14:30 Sputum Gram Stain - Final Resulted 06/20/19 14:30 Sputum Culture - Preliminary Pseudomonas Aeruginosa Stenotrophomonas Maltophilia Resulted Critical Care - Subjective ROS Limited/Unobtainable: No Condition: critical EKG Rhythm: Sinus Rhythm FI02: 35 Vent Support Breath Rate: 16 Vent Support Mode: AC Vent Tidal Volume: 600 Sputum Amount: Small PEEP: 0.0 PIP: 31 I&O: Intake and Output 06/22/19 06/23/19 19:00 07:00 Intake Total 1310 ml 1065 ml Output Total 400 ml 740 ml Balance 910 ml 325 ml Intake Free Water 200 ml 100 ml IV Total 450 ml 745 ml Tube Feeding 660 ml 220 ml Output Urine Total 400 ml 740 ml # Bowel Movements 4 1 Labs: Laboratory Tests Test 06/23/19 04:00 06/23/19 08:40 06/23/19 09:14 06/23/19 09:18 White Blood Count 10.7 K/UL (4.8-10.8) Red Blood Count 2.89 M/UL (4.70-6.10) L Hemoglobin 8.0 G/DL (14.2-18.0) L Hematocrit 24.8 % (42.0-52.0) L Mean Corpuscular Volume 86 FL (80-99) Mean Corpuscular Hemoglobin 27.8 PG (27.0-31.0) Mean Corpuscular Hemoglobin Concent 32.4 G/DL (32.0-36.0) Red Cell Distribution Width 15.4 % (11.6-14.8) H Platelet Count 120 K/UL (150-450) L Mean Platelet Volume 8.7 FL (6.5-10.1) Neutrophils (%) (Auto) 73.1 % (45.0-75.0) Lymphocytes (%) (Auto) 10.3 % (20.0-45.0) L Monocytes (%) (Auto) 12.4 % (1.0-10.0) H Eosinophils (%) (Auto) 3.7 % (0.0-3.0) H Basophils (%) (Auto) 0.5 % (0.0-2.0) Prothrombin Time 10.5 SEC (9.30-11.50) Prothromb Time International Ratio 1.0 (0.9-1.1) Activated Partial Thromboplast Time 28 SEC (23-33) Sodium Level 139 MMOL/L (136-145) Potassium Level 4.7 MMOL/L (3.5-5.1) Chloride Level 109 MMOL/L (98-107) H Carbon Dioxide Level 27 MMOL/L (21-32) Anion Gap 3 mmol/L (5-15) L Blood Urea Nitrogen 28 mg/dL (7-18) H Creatinine 1.2 MG/DL (0.55-1.30) Estimat Glomerular Filtration Rate 59.9 mL/min (>60) Glucose Level 83 MG/DL (74-106) Calcium Level 8.5 MG/DL (8.5-10.1) Phosphorus Level 3.2 MG/DL (2.5-4.9) Magnesium Level 1.9 MG/DL (1.8-2.4) Total Bilirubin 0.2 MG/DL (0.2-1.0) Aspartate Amino Transf (AST/SGOT) 52 U/L (15-37) H Alanine Aminotransferase (ALT/SGPT) 66 U/L (12-78) Alkaline Phosphatase 187 U/L (46-116) H C-Reactive Protein, Quantitative 4.4 mg/dL (0.00-0.90) H Pro-B-Type Natriuretic Peptide 9894 pg/mL (0-125) H Total Protein 5.8 G/DL (6.4-8.2) L Albumin 1.9 G/DL (3.4-5.0) L Globulin 3.9 g/dL Albumin/Globulin Ratio 0.5 (1.0-2.7) L Pending Random Vancomycin Level 15.4 ug/mL Amikacin Level Trough 4.8 ug/mL (4.0-8.0) Arterial Blood pH 7.488 (7.350-7.450) Arterial Blood Partial Pressure CO2 30.9 mmHg (35.0-45.0) L Arterial Blood Partial Pressure O2 152.0 mmHg (75.0-100.0) H Arterial Blood HCO3 22.9 mmol/L (22.0-26.0) Arterial Blood Oxygen Saturation 98.8 % (95-100) Arterial Blood Base Excess -0.2 (-2-2) Ger Test Positive Urine Total Protein Pending Urine Albumin (%) Pending Urine Vfxxt-6-Ivjgltxic (%) Pending Urine Nedvn-6-Ifuhffdmc (%) Pending Urine Beta-Globulin (%) Pending Urine Gamma Globulin (%) Pending Ur Protein Electrophoresis M-Emanuel Pending Urine Protein Electrophoresis Intrp Pending Total Protein (PEP) Pending Albumin (PEP) Pending Globulin (PEP) Pending Mucmv-7-Gpeporvgk Pending Uufmv-1-Oshozotsc Pending Beta Globulins Pending Beta Gamma Globulin Pending PEP Abnormal Protein Bands Pending Protein Electrophoresis Interpret Pending Hepatitis A IgM Antibody Pending Hepatitis B Surface Antigen Pending Hepatitis B Core IgM Antibody Pending Hepatitis C Antibody Pending HIV (1&2) Antibody Rapid Negative (NEGATIVE) Huma Keating MD Jun 23, 2019 11:59
[2019-06-23 12:00] VITALS: BP 123/73
--- NOTE | 2019-06-23 12:17 | NUR ---
CASE MANAGEMENT: REVIEW 06/23/2019 SI:SEPSIS. T 97.6 HR 73 RR 18 B/P 145/74 SATS 100% ON MECH VENT FIO2 35 CL 109 BUN 28 AST 52 ALP 187 BNP 9894 ABGs PH 7.488 PCO2 30.9 PO2 152 IS:DEXTROSE IV @ 50 mL/HR PROTONIX IV Q12H ERTAPENEM IV Q24H AMIKACIN IV Q36H CARAFATE GT TID SDU PLAN OF CARE: EGD
--- NOTE | 2019-06-23 12:59 | GI Progress Note ---
Assessment/Plan Problems: (1) Severe sepsis ICD Codes: A41.9 - Sepsis, unspecified organism; R65.20 - Severe sepsis without septic shock SNOMED: 78696670 (2) GT SITE LEAKING (3) Alzheimer's dementia ICD Codes: G30.9 - Alzheimer's disease, unspecified SNOMED: 94482338 (4) Upper GI bleed ICD Codes: K92.2 - Upper gastrointestinal hemorrhage SNOMED: 27428535 (5) Severe erosive esophagitis (6) Malfunction of gastrostomy tube ICD Codes: K94.23 - Gastrostomy malfunction SNOMED: 364378125 (7) Anemia ICD Codes: D64.9 - Anemia, unspecified SNOMED: 494360327 Status: unchanged Status Narrative Discussed with Dr. Wilson. Assessment/Plan EGD cancelled due to no consent, will reschedule for tomorrow. NPO @ [place]. GT changed at the bedside to 20 Fr yesterday protonix 40 mg Q12 Carafate fu CBC, stable H&H fu stool ob The patient was seen and examined at bedside and all new and available data was reviewed in the patients chart. I agree with the above findings, impression and plan. (Patient seen earlier today. Signature stamp does not reflect patient encounter time.). - Vitaliy Wilson MD Subjective Subjective limited Objective Last 24 Hour Vital Signs Date Time Temp Pulse Resp B/P (MAP) Pulse Ox O2 Delivery O2 Flow Rate FiO2 06/23/19 12:00 97.3 74 18 123/73 (90) 100 06/23/19 12:00 35 06/23/19 12:00 Mechanical Ventilator 06/23/19 11:43 74 06/23/19 11:22 35 06/23/19 10:33 85 16 35 06/23/19 09:14 83 16 35 06/23/19 08:03 79 06/23/19 08:00 97.6 73 18 145/74 (97) 100 06/23/19 08:00 Mechanical Ventilator 06/23/19 06:33 84 16 35 06/23/19 05:22 82 16 35 06/23/19 04:00 97.6 83 20 128/78 (95) 19 06/23/19 04:00 Mechanical Ventilator 06/23/19 04:00 35 06/23/19 03:43 85 06/23/19 02:41 84 16 35 06/23/19 01:00 87 17 35 06/23/19 00:00 Mechanical Ventilator 06/23/19 00:00 89 06/23/19 00:00 97.9 83 18 118/84 (95) 19 06/22/19 22:36 89 20 35 06/22/19 21:18 82 16 35 06/22/19 20:00 Mechanical Ventilator 06/22/19 20:00 35 06/22/19 20:00 87 06/22/19 20:00 97.7 85 18 129/59 (82) 100 06/22/19 19:29 85 17 35 06/22/19 16:45 91 17 35 06/22/19 16:00 88 06/22/19 16:00 35 06/22/19 16:00 97.7 88 18 144/68 (93) 100 06/22/19 16:00 Mechanical Ventilator 06/22/19 15:10 84 16 35 06/22/19 14:21 97.2 84 17 116/69 (85) 100 06/22/19 13:18 84 19 35 Intake and Output 06/22/19 06/23/19 19:00 07:00 Intake Total 1310 ml 1065 ml Output Total 400 ml 740 ml Balance 910 ml 325 ml Intake Free Water 200 ml 100 ml IV Total 450 ml 745 ml Tube Feeding 660 ml 220 ml Output Urine Total 400 ml 740 ml # Bowel Movements 4 1 Laboratory Tests Test 06/23/19 04:00 06/23/19 08:40 06/23/19 09:14 06/23/19 09:18 White Blood Count 10.7 K/UL (4.8-10.8) Red Blood Count 2.89 M/UL (4.70-6.10) L Hemoglobin 8.0 G/DL (14.2-18.0) L Hematocrit 24.8 % (42.0-52.0) L Mean Corpuscular Volume 86 FL (80-99) Mean Corpuscular Hemoglobin 27.8 PG (27.0-31.0) Mean Corpuscular Hemoglobin Concent 32.4 G/DL (32.0-36.0) Red Cell Distribution Width 15.4 % (11.6-14.8) H Platelet Count 120 K/UL (150-450) L Mean Platelet Volume 8.7 FL (6.5-10.1) Neutrophils (%) (Auto) 73.1 % (45.0-75.0) Lymphocytes (%) (Auto) 10.3 % (20.0-45.0) L Monocytes (%) (Auto) 12.4 % (1.0-10.0) H Eosinophils (%) (Auto) 3.7 % (0.0-3.0) H Basophils (%) (Auto) 0.5 % (0.0-2.0) Prothrombin Time 10.5 SEC (9.30-11.50) Prothromb Time International Ratio 1.0 (0.9-1.1) Activated Partial Thromboplast Time 28 SEC (23-33) Sodium Level 139 MMOL/L (136-145) Potassium Level 4.7 MMOL/L (3.5-5.1) Chloride Level 109 MMOL/L (98-107) H Carbon Dioxide Level 27 MMOL/L (21-32) Anion Gap 3 mmol/L (5-15) L Blood Urea Nitrogen 28 mg/dL (7-18) H Creatinine 1.2 MG/DL (0.55-1.30) Estimat Glomerular Filtration Rate 59.9 mL/min (>60) Glucose Level 83 MG/DL (74-106) Calcium Level 8.5 MG/DL (8.5-10.1) Phosphorus Level 3.2 MG/DL (2.5-4.9) Magnesium Level 1.9 MG/DL (1.8-2.4) Total Bilirubin 0.2 MG/DL (0.2-1.0) Aspartate Amino Transf (AST/SGOT) 52 U/L (15-37) H Alanine Aminotransferase (ALT/SGPT) 66 U/L (12-78) Alkaline Phosphatase 187 U/L (46-116) H C-Reactive Protein, Quantitative 4.4 mg/dL (0.00-0.90) H Pro-B-Type Natriuretic Peptide 9894 pg/mL (0-125) H Total Protein 5.8 G/DL (6.4-8.2) L Albumin 1.9 G/DL (3.4-5.0) L Globulin 3.9 g/dL Albumin/Globulin Ratio 0.5 (1.0-2.7) L Pending Random Vancomycin Level 15.4 ug/mL Amikacin Level Trough 4.8 ug/mL (4.0-8.0) Arterial Blood pH 7.488 (7.350-7.450) Arterial Blood Partial Pressure CO2 30.9 mmHg (35.0-45.0) L Arterial Blood Partial Pressure O2 152.0 mmHg (75.0-100.0) H Arterial Blood HCO3 22.9 mmol/L (22.0-26.0) Arterial Blood Oxygen Saturation 98.8 % (95-100) Arterial Blood Base Excess -0.2 (-2-2) Ger Test Positive Urine Total Protein Pending Urine Albumin (%) Pending Urine Ogymb-1-Dsrfvvuxi (%) Pending Urine Rbmle-2-Wfaskdwgg (%) Pending Urine Beta-Globulin (%) Pending Urine Gamma Globulin (%) Pending Ur Protein Electrophoresis M-Emanuel Pending Urine Protein Electrophoresis Intrp Pending Total Protein (PEP) Pending Albumin (PEP) Pending Globulin (PEP) Pending Gcwug-0-Txywdftwm Pending Miktl-0-Nbrofwmdd Pending Beta Globulins Pending Beta Gamma Globulin Pending PEP Abnormal Protein Bands Pending Protein Electrophoresis Interpret Pending Hepatitis A IgM Antibody Pending Hepatitis B Surface Antigen Pending Hepatitis B Core IgM Antibody Pending Hepatitis C Antibody Pending HIV (1&2) Antibody Rapid Negative (NEGATIVE) Height (Feet): 5 Height (Inches): 8.00 Weight (Pounds): 191 General Appearance: WD/WN, no apparent distress, alert Cardiovascular: normal rate Respiratory/Chest: normal breath sounds, no respiratory distress Abdominal Exam: normal bowel sounds, non tender, soft Extremities: non-tender Emanuel Quesada PORTAL ADMINISTRATOR Jun 23, 2019 12:59
--- NOTE | 2019-06-23 13:55 | Infectious Diseases Prog Note ---
Assessment/Plan Assessment/Plan Mr. Huffman is a 68 yo male with PMHx of of chronic resp failure trach/vent dependant, diffuse ulcerative esophagitis, peptic esophageal stricture, asthma, GERD, Dm2, CVA/TIA w/ hemiplegia, functional quadriplegia, CAD, CHF, ESBL UTI , GIB s/p multiple EGDs in the past, schizoaffective disorder, Dementia, hypothyroidism, malnutrition, non verbal, infected obstuctive ureterolithiasis/ w abscess s/p L NT palced 12/2018, encephalopathy, Alzheimer's disease, multiple admissions, subacute facility resident who was sent to the for hypotension and bradycardia. Septic Shock- likely 2ry to UTI and PNA- off pressors now off perssors now Hx of resistant infections 06/23 CXR; Bilateral right greater than left pleural effusions are again demonstrated. Bilateral interstitial and airspace edema persists, unchanged Urine Cx 06/14/19 - >100k ESBL P, stuarti, ESBL P mirabilis (both S Ertapenem , ZOsyn) Blood Cx - NTD CXR show probable pna sp cx PsA (R imipenem, I levaquin), S. maltophila (S bactrim, levaquin) GT leakage with cellulitis Leukocytosis; SP Hypothermia; SP Chronic resp failure trach/vent dependant asthma Dm2 CVA/TIA w/ hemiplegia Functional quadriplegia CAD CHF GIB s/p multiple EGDs in the past Schizoaffective disorder Dementia Hypothyroidism Non verbal Alzheimer's disease PLAN: - Continue Amikacin #9/10 -D/c Ertapenem #9 and IV Vancomycin #9 -add PO Levaquin #1/5 for S. maltophila -06/17 SP PO Vancomycin #3 -06/16 SP Flagyl #2 - monitor CBC and Temps -wound care per hospital protocol -GI f/u Thank you for this consult. [facility] will continue to follow the patient with you during this hospitalization. Subjective Allergies: Coded Allergies: NO KNOWN DRUG ALLERGIES (Verified Allergy, Unknown, 09/11/16) Subjective afebrile leukocytosis resolved Objective Vital Signs Last 24 Hour Vital Signs Date Time Temp Pulse Resp B/P (MAP) Pulse Ox O2 Delivery O2 Flow Rate FiO2 06/23/19 12:34 85 16 35 06/23/19 12:00 97.3 74 18 123/73 (90) 100 10/14/19 12:00 35 06/23/19 12:00 Mechanical Ventilator 06/23/19 11:43 74 06/23/19 11:22 35 06/23/19 10:33 85 16 35 06/23/19 09:14 83 16 35 06/23/19 08:03 79 06/23/19 08:00 97.6 73 18 145/74 (97) 100 06/23/19 08:00 Mechanical Ventilator 06/23/19 06:33 84 16 35 06/23/19 05:22 82 16 35 06/23/19 04:00 97.6 83 20 128/78 (95) 19 06/23/19 04:00 Mechanical Ventilator 06/23/19 04:00 35 06/23/19 03:43 85 06/23/19 02:41 84 16 35 06/23/19 01:00 87 17 35 06/23/19 00:00 Mechanical Ventilator 06/23/19 00:00 89 06/23/19 00:00 97.9 83 18 118/84 (95) 19 06/22/19 22:36 89 20 35 06/22/19 21:18 82 16 35 06/22/19 20:00 Mechanical Ventilator 06/22/19 20:00 35 06/22/19 20:00 87 06/22/19 20:00 97.7 85 18 129/59 (82) 100 06/22/19 19:29 85 17 35 06/22/19 16:45 91 17 35 06/22/19 16:00 88 06/22/19 16:00 35 06/22/19 16:00 97.7 88 18 144/68 (93) 100 06/22/19 16:00 Mechanical Ventilator 06/22/19 15:10 84 16 35 06/22/19 14:21 97.2 84 17 116/69 (85) 100 Height (Feet): 5 Height (Inches): 8.00 Weight (Pounds): 191 Objective Gen: On vent in IVU HEENT: NCAT, MMM, PERRL, No Oral lesion, no scleral icterus NECK: supple, No LAD, No JVD, Trached LUNGS: Coarse B/L, No W/C CARDS: RRR, S1, S2, No M/R/G, ABD: Soft, NT, ND, No R/G, + BS, No HSM, No Masses, PEG : Deferred Ext: C/C/E, Pulses 2+ B/L (DP, Rad): NEURO: A/O x 0, no following SKIN: Warm/dry, No rashes Microbiology Date/Time Source Procedure Growth Status 06/21/19 12:00 Drainage Fluid Gram Stain - Final Resulted 06/21/19 12:00 Wound Culture - Preliminary Gram Negative Bacillus 1 Gram Negative Bacillus 2 Tea Albicans Resulted 06/20/19 14:30 Sputum Gram Stain - Final Resulted 06/20/19 14:30 Sputum Culture - Preliminary Pseudomonas Aeruginosa Stenotrophomonas Maltophilia Resulted Laboratory Tests Test 06/23/19 04:00 06/23/19 08:40 06/23/19 09:14 06/23/19 09:18 White Blood Count 10.7 K/UL (4.8-10.8) Red Blood Count 2.89 M/UL (4.70-6.10) L Hemoglobin 8.0 G/DL (14.2-18.0) L Hematocrit 24.8 % (42.0-52.0) L Mean Corpuscular Volume 86 FL (80-99) Mean Corpuscular Hemoglobin 27.8 PG (27.0-31.0) Mean Corpuscular Hemoglobin Concent 32.4 G/DL (32.0-36.0) Red Cell Distribution Width 15.4 % (11.6-14.8) H Platelet Count 120 K/UL (150-450) L Mean Platelet Volume 8.7 FL (6.5-10.1) Neutrophils (%) (Auto) 73.1 % (45.0-75.0) Lymphocytes (%) (Auto) 10.3 % (20.0-45.0) L Monocytes (%) (Auto) 12.4 % (1.0-10.0) H Eosinophils (%) (Auto) 3.7 % (0.0-3.0) H Basophils (%) (Auto) 0.5 % (0.0-2.0) Prothrombin Time 10.5 SEC (9.30-11.50) Prothromb Time International Ratio 1.0 (0.9-1.1) Activated Partial Thromboplast Time 28 SEC (23-33) Sodium Level 139 MMOL/L (136-145) Potassium Level 4.7 MMOL/L (3.5-5.1) Chloride Level 109 MMOL/L (98-107) H Carbon Dioxide Level 27 MMOL/L (21-32) Anion Gap 3 mmol/L (5-15) L Blood Urea Nitrogen 28 mg/dL (7-18) H Creatinine 1.2 MG/DL (0.55-1.30) Estimat Glomerular Filtration Rate 59.9 mL/min (>60) Glucose Level 83 MG/DL (74-106) Calcium Level 8.5 MG/DL (8.5-10.1) Phosphorus Level 3.2 MG/DL (2.5-4.9) Magnesium Level 1.9 MG/DL (1.8-2.4) Total Bilirubin 0.2 MG/DL (0.2-1.0) Aspartate Amino Transf (AST/SGOT) 52 U/L (15-37) H Alanine Aminotransferase (ALT/SGPT) 66 U/L (12-78) Alkaline Phosphatase 187 U/L (46-116) H C-Reactive Protein, Quantitative 4.4 mg/dL (0.00-0.90) H Pro-B-Type Natriuretic Peptide 9894 pg/mL (0-125) H Total Protein 5.8 G/DL (6.4-8.2) L Albumin 1.9 G/DL (3.4-5.0) L Globulin 3.9 g/dL Albumin/Globulin Ratio 0.5 (1.0-2.7) L Pending Random Vancomycin Level 15.4 ug/mL Amikacin Level Trough 4.8 ug/mL (4.0-8.0) Arterial Blood pH 7.488 (7.350-7.450) Arterial Blood Partial Pressure CO2 30.9 mmHg (35.0-45.0) L Arterial Blood Partial Pressure O2 152.0 mmHg (75.0-100.0) H Arterial Blood HCO3 22.9 mmol/L (22.0-26.0) Arterial Blood Oxygen Saturation 98.8 % (95-100) Arterial Blood Base Excess -0.2 (-2-2) Ger Test Positive Urine Total Protein Pending Urine Albumin (%) Pending Urine Dorph-4-Cjvdvhcxo (%) Pending Urine Poenx-6-Kkqlryhun (%) Pending Urine Beta-Globulin (%) Pending Urine Gamma Globulin (%) Pending Ur Protein Electrophoresis M-Emanuel Pending Urine Protein Electrophoresis Intrp Pending Total Protein (PEP) Pending Albumin (PEP) Pending Globulin (PEP) Pending Oytti-3-Qfcyprszb Pending Rduhh-4-Ethbwpwjl Pending Beta Globulins Pending Beta Gamma Globulin Pending PEP Abnormal Protein Bands Pending Protein Electrophoresis Interpret Pending Hepatitis A IgM Antibody Pending Hepatitis B Surface Antigen Pending Hepatitis B Core IgM Antibody Pending Hepatitis C Antibody Pending HIV (1&2) Antibody Rapid Negative (NEGATIVE) Current Medications Medications (Trade) Dose Ordered Sig/Wanda Route PRN Reason Start Time Stop Time Status Last Admin Dose Admin Acetaminophen (Tylenol) 650 mg Q4H PRN GT fever (temp>100.5F) 06/19/19 04:00 07/14/19 03:59 Albuterol/ Ipratropium (Albuterol/ Ipratropium) 3 ml Q4H PRN HHN Shortness of Breath 06/21/19 11:00 06/26/19 10:59 Amikacin Protocol (Amikacin pharmacy to dose) 1 ea DAILY PRN MISC PER RX PROTOCOL 06/19/19 09:00 07/14/19 16:44 Amikacin Sulfate 500 mg/Sodium Chloride 112 ml @ 112 mls/hr Q36H IV 06/23/19 18:00 06/30/19 17:59 Chlorhexidine Gluconate (Jasmin-Hex 2%) 1 applic DAILY@2000 TOPIC 06/20/19 20:00 07/20/19 19:59 06/22/19 20:17 Dextrose 1,000 ml @ 50 mls/hr Q20H IV 06/19/19 03:15 07/18/19 12:59 06/23/19 06:12 Ertapenem 1 gm/ Sodium Chloride 55 ml @ 110 mls/hr Q24H IV 06/19/19 21:00 06/25/19 20:59 06/22/19 20:18 Heparin Sodium (Porcine) (Heparin 5000 units/ml) 5,000 units EVERY 12 HOURS SUBQ 06/19/19 09:00 07/14/19 20:59 06/20/19 08:42 Levothyroxine Sodium (Synthroid) 88 mcg DAILY@0630 GT 06/22/19 06:30 07/20/19 06:29 06/23/19 06:07 Midodrine (Pro-Amatine) 2.5 mg THREE TIMES A DAY GT 06/19/19 13:00 07/17/19 12:59 06/22/19 17:26 Ondansetron HCl (Zofran) 4 mg Q6H PRN IVP Nausea & Vomiting 06/19/19 08:30 07/14/19 14:29 Pantoprazole (Protonix) 40 mg EVERY 12 HOURS IVP 06/21/19 09:00 07/21/19 08:59 06/23/19 09:03 Polyethylene Glycol (Miralax) 17 gm DAILYPRN PRN GT Constipation 06/19/19 14:30 07/14/19 14:29 Sucralfate (Carafate) 1 gm TID GT 06/21/19 09:00 07/21/19 08:59 06/23/19 08:12 Vancomycin HCl (Vanco rx to dose) 1 ea DAILY PRN MISC Per rx protocol 06/19/19 09:00 07/18/19 11:59 Zinc Oxide (Zinc Oxide) 1 applic DAILY TOPIC 06/21/19 09:00 07/21/19 08:59 06/23/19 09:03 Lisy Lai M.D. Jun 23, 2019 13:55
--- NOTE | 2019-06-23 14:38 | Surgery Progress Note ---
Surgery Progress Note Subjective Additional Comments Patient seen and examined bedside. Leukocytosis resolved. Anemia. Platelets 120 today. Electrolytes stable. CRP trending down. Imaging noted. Objective Last 24 Hour Vital Signs Date Time Temp Pulse Resp B/P (MAP) Pulse Ox O2 Delivery O2 Flow Rate FiO2 06/23/19 12:34 85 16 35 06/23/19 12:00 97.3 74 18 123/73 (90) 100 06/23/19 12:00 35 06/23/19 12:00 Mechanical Ventilator 06/23/19 11:43 74 06/23/19 11:22 35 06/23/19 10:33 85 16 35 06/23/19 09:14 83 16 35 06/23/19 08:03 79 06/23/19 08:00 97.6 73 18 145/74 (97) 100 06/23/19 08:00 Mechanical Ventilator 06/23/19 06:33 84 16 35 06/23/19 05:22 82 16 35 06/23/19 04:00 97.6 83 20 128/78 (95) 19 06/23/19 04:00 Mechanical Ventilator 06/23/19 04:00 35 06/23/19 03:43 85 06/23/19 02:41 84 16 35 06/23/19 01:00 87 17 35 06/23/19 00:00 Mechanical Ventilator 06/23/19 00:00 89 06/23/19 00:00 97.9 83 18 118/84 (95) 19 06/22/19 22:36 89 20 35 06/22/19 21:18 82 16 35 06/22/19 20:00 Mechanical Ventilator 06/22/19 20:00 35 06/22/19 20:00 87 06/22/19 20:00 97.7 85 18 129/59 (82) 100 06/22/19 19:29 85 17 35 06/22/19 16:45 91 17 35 06/22/19 16:00 88 06/22/19 16:00 35 06/22/19 16:00 97.7 88 18 144/68 (93) 100 06/22/19 16:00 Mechanical Ventilator 06/22/19 15:10 84 16 35 I&O Intake and Output 06/22/19 06/23/19 19:00 07:00 Intake Total 1310 ml 1065 ml Output Total 400 ml 740 ml Balance 910 ml 325 ml Intake Free Water 200 ml 100 ml IV Total 450 ml 745 ml Tube Feeding 660 ml 220 ml Output Urine Total 400 ml 740 ml # Bowel Movements 4 1 Dressing: dry Wound: clean Drains: other Cardiovascular: RSR Respiratory: decreased breath sounds Abdomen: soft, present bowel sounds, non-distended Extremities: no cyanosis, other Laboratory Tests Test 06/23/19 04:00 06/23/19 08:40 06/23/19 09:14 06/23/19 09:18 White Blood Count 10.7 K/UL (4.8-10.8) Red Blood Count 2.89 M/UL (4.70-6.10) L Hemoglobin 8.0 G/DL (14.2-18.0) L Hematocrit 24.8 % (42.0-52.0) L Mean Corpuscular Volume 86 FL (80-99) Mean Corpuscular Hemoglobin 27.8 PG (27.0-31.0) Mean Corpuscular Hemoglobin Concent 32.4 G/DL (32.0-36.0) Red Cell Distribution Width 15.4 % (11.6-14.8) H Platelet Count 120 K/UL (150-450) L Mean Platelet Volume 8.7 FL (6.5-10.1) Neutrophils (%) (Auto) 73.1 % (45.0-75.0) Lymphocytes (%) (Auto) 10.3 % (20.0-45.0) L Monocytes (%) (Auto) 12.4 % (1.0-10.0) H Eosinophils (%) (Auto) 3.7 % (0.0-3.0) H Basophils (%) (Auto) 0.5 % (0.0-2.0) Prothrombin Time 10.5 SEC (9.30-11.50) Prothromb Time International Ratio 1.0 (0.9-1.1) Activated Partial Thromboplast Time 28 SEC (23-33) Sodium Level 139 MMOL/L (136-145) Potassium Level 4.7 MMOL/L (3.5-5.1) Chloride Level 109 MMOL/L (98-107) H Carbon Dioxide Level 27 MMOL/L (21-32) Anion Gap 3 mmol/L (5-15) L Blood Urea Nitrogen 28 mg/dL (7-18) H Creatinine 1.2 MG/DL (0.55-1.30) Estimat Glomerular Filtration Rate 59.9 mL/min (>60) Glucose Level 83 MG/DL (74-106) Calcium Level 8.5 MG/DL (8.5-10.1) Phosphorus Level 3.2 MG/DL (2.5-4.9) Magnesium Level 1.9 MG/DL (1.8-2.4) Total Bilirubin 0.2 MG/DL (0.2-1.0) Aspartate Amino Transf (AST/SGOT) 52 U/L (15-37) H Alanine Aminotransferase (ALT/SGPT) 66 U/L (12-78) Alkaline Phosphatase 187 U/L (46-116) H C-Reactive Protein, Quantitative 4.4 mg/dL (0.00-0.90) H Pro-B-Type Natriuretic Peptide 9894 pg/mL (0-125) H Total Protein 5.8 G/DL (6.4-8.2) L Albumin 1.9 G/DL (3.4-5.0) L Globulin 3.9 g/dL Albumin/Globulin Ratio 0.5 (1.0-2.7) L Pending Random Vancomycin Level 15.4 ug/mL Amikacin Level Trough 4.8 ug/mL (4.0-8.0) Arterial Blood pH 7.488 (7.350-7.450) Arterial Blood Partial Pressure CO2 30.9 mmHg (35.0-45.0) L Arterial Blood Partial Pressure O2 152.0 mmHg (75.0-100.0) H Arterial Blood HCO3 22.9 mmol/L (22.0-26.0) Arterial Blood Oxygen Saturation 98.8 % (95-100) Arterial Blood Base Excess -0.2 (-2-2) Ger Test Positive Urine Total Protein Pending Urine Albumin (%) Pending Urine Hwtxh-5-Rkvcmfwsb (%) Pending Urine Lpoof-6-Eysriqagd (%) Pending Urine Beta-Globulin (%) Pending Urine Gamma Globulin (%) Pending Ur Protein Electrophoresis M-Emanuel Pending Urine Protein Electrophoresis Intrp Pending Total Protein (PEP) Pending Albumin (PEP) Pending Globulin (PEP) Pending Lzkiy-0-Bzazifylx Pending Nzlmd-1-Xinkyhshy Pending Beta Globulins Pending Beta Gamma Globulin Pending PEP Abnormal Protein Bands Pending Protein Electrophoresis Interpret Pending Hepatitis A IgM Antibody Pending Hepatitis B Surface Antigen Pending Hepatitis B Core IgM Antibody Pending Hepatitis C Antibody Pending HIV (1&2) Antibody Rapid Negative (NEGATIVE) Plan Problems: (1) Severe protein-calorie malnutrition Assessment & Plan: DAILY ESTIMATED NEEDS: Needs based on Critical care, underweight 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 * Swallowing difficulty R/T respiratory status as evidenced by pt vent dep via trach, PEG dep. ENTERAL NUTRITION RECOMMENDATIONS: Nepro @45mL/hr x 22hr to provide 990mL, 1782kcal, 80g pro, 720mL free water -When Hemodynamically stable, start Nepro @ 15mL/hr for 6 hrs. -Advance as tolerated 10mL q 4-6 hrs to goal. -TF @goal meets 100% est needs. -Flush per MD/ HOB >30 degrees. ADDITIONAL RECOMMENDATIONS: * Calibrated bedscale weight for accurate CBW + weekly wt monitoring * Per SNF: Ht of 6'1", Wt 125# (05/2019) * TF recs as above when medically stable * Monitor for cont'd need of renal formula (K 5.5) * Monitor lytes and hydration status. (2) Feeding by G-tube Assessment & Plan: g tube changed planned endoscopy tomorrow unable to do today because of consent (3) Respiratory failure, wpywj-or-nxmphbj (4) Septic shock Assessment & Plan: hypotensive - improved tachycardic - improved labs as above improving PICC line placed And central line removed will follow with recs thank you (5) Severe sepsis (6) GT SITE LEAKING Assessment & Plan: Patient identified worsening G-tube site leakage and cellulitis. This has been noted on prior admissions which is cared for. Plan for placement as below Pt presents with contractures. Skin erosions to abdominal region, and multiple areas of non-blanching erythema. Skin erosion noted to abdomen extending around GT and mostly to L abdominal area, skin is grossly red and excoriated. Furuncle noted to L flank oozing moderate amt purulent exudate. Non-blanchable erythema without fluctuance noted to L lateral malleolus (L) 1.5cm x (W)3cm. Non-blanchable erythema without fluctuance noted to lateral L foot (L)1cm x (W) 1cm. Non-blanchable erythema noted to sacral cleft. No other skin concerns noted. Tx.Plan: Apply Zinc Oxide Paste to GT site and excoriated areas on abd daily and prn. Apply Betadine to Boil L flank Daily .Cover with Optifoam drsg. Change daily and prn. Apply Moisture Barrier Paste to sacrum. Cover with Optifoam drsg. Change every 3 days and prn. Apply Cavilon to Non-blanchable areas L foot and bilat heels. Cover each site with Optifoam drsg. Change every 7 days and prn. Reposition at least every 2hours or as tolerated. Place pillow between knees. Off-load heels with pillow. APM/RENO Mattress overlay. Quirino Bernard Jun 23, 2019 14:38
[2019-06-23] MEDS: Levofloxacin 750mg tab GT SCH (14:54)
[2019-06-23 16:00] VITALS: BP 145/74
--- NOTE | 2019-06-23 16:35 | NUR ---
NURSE NOTES: Patient provided with bed bath. Patient tolerated care well. Patient clean and dry. Bed in lowest setting, call light within reach, safety wheels engaged and bed alarm activated to zone 2. Will continue to monitor.
[2019-06-23] MEDS ORDERED: Amikacin 500 MG in NS 110 ML IV SCH (18:00)
--- NOTE | 2019-06-23 19:07 | NUR ---
HAND-OFF: Report given to ODILIA Quiñones. No signs of cardiac distress noted. Patient remains on vent AC 16, TV 600, FiO2 35% and Peep 0. Patient tolerating settings well. Patient remains NPO in prep for EGD procedure tomorrow 06/24. Patient resting in bed. Bed in lowest position, call light within reach, safety breaks engaged and bed alarm on zone 2. No signs and symptoms of active bleeding within the shift.
--- NOTE | 2019-06-23 19:08 | NUR ---
NURSE NOTES: received pt from Deborah HARTLEY., pt is obtunded and sleeping on the bed. right upper arm PICC line intact, patent, and clean. pt is Gtube site is intact, patent, and clean. petty Cath is intact. bed at the lowest position, alarmed, and locked. call light within reach. will continue to monitor pt with plan of care.
[2019-06-23 20:00] VITALS: BP_SYST 133; BP_SYST 147; BP_DIAS 77
[2019-06-23] MEDS: Dyna-Hex 2% Top Sol 2oz TOPIC SCH (20:12)
--- NOTE | 2019-06-23 22:21 | NUR ---
NURSE NOTES: attempted to leave message to public guardian for the pt, unable to reach. no voicemail options. will try to continue to reach out to public guardian.
[2019-06-24] VITALS: BP 139/77
[2019-06-24 04:00] VITALS: BP 132/82
[2019-06-24] MEDS: Sucralfate 1gm tab GT SCH ×3 (05:35→21:53)
[2019-06-24 05:47] LABS: HEMATOCRIT 23.6 % (42.0-52.0); HEMOGLOBIN 7.7 G/DL (14.2-18.0); MEAN CORPUSCULAR VOLUME 85 FL (80-99); PLATELET COUNT 141 K/UL (150-450); RED BLOOD COUNT 2.77 M/UL (4.70-6.10); RED CELL DISTRIBUTION WIDTH 15.5 % (11.6-14.8); WHITE BLOOD COUNT 9.2 K/UL (4.8-10.8)
[2019-06-24 06:05] LABS: ANION GAP 4 mmol/L (5-15); BLOOD UREA NITROGEN 22 mg/dL (7-18); CALCIUM 8.5 MG/DL (8.5-10.1); CARBON DIOXIDE 27 MMOL/L (21-32); CHLORIDE 104 MMOL/L (98-107); POTASSIUM 4.3 MMOL/L (3.5-5.1); SODIUM 135 MMOL/L (136-145)
--- NOTE | 2019-06-24 06:51 | NUR ---
NURSE NOTES: attempted to contact the public guardian for the pt, but unable to reach the guardian. no voicemail options available. will try to continue to reach out to public guardian for the EGD procedure.
--- NOTE | 2019-06-24 07:35 | NUR ---
HAND-OFF: Report given to Bhavna HARTLEY.
--- NOTE | 2019-06-24 07:35 | NUR ---
NURSE NOTES: Received report from Tamanna Martinez RN. Patient awake in bed, nonverbal, unable to follow commands and make needs known. Trach to vent with settings of AC 16, TV 600, FiO2 35%, no PEEP. GT feeding held for possible EGD today. Victor catheter patent and draining well. Left upper arm PICC infusing D5W @ 50 cc/hr, asymptomatic. Bed locked in lowest position with padded side rails up x 3. Suction equipment in place and functional. All needs attended to. Will continue to monitor.
--- NOTE | 2019-06-24 07:55 | NUR ---
NURSE NOTES: Dr. Nath at bedside, reported hgb level of 7.7. No s/s of bleeding noted. No new orders received.
[2019-06-24 08:00] VITALS: BP 131/70
--- NOTE | 2019-06-24 08:55 | NUR ---
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 * Swallowing difficulty R/T respiratory status as evidenced by pt vent dep via trach, PEG dep. CURRENT TF:NPO for procedure ENTERAL NUTRITION RECOMMENDATIONS: Osmolite 1.5 @ 55ml/hr x 22 hrs to provide 1210ml, 1815kcal, 76g prot, 922ml free water - S/p EGD, as medically appropriate, resume TF - Hold 1 hr before and after Synthroid med - Flush per MD/ HOB >30 degrees. ADDITIONAL RECOMMENDATIONS: * Calibrated bedscale weight for accurate CBW + weekly wt monitoring * Per SNF: Ht of 6'1", Wt 125# (05/2019) * Monitor lytes closely, replete as needed (K elev upon adm, monitor closely, need for TF change-> now wnl) * Monitor BGs closely w/ TF . .
[2019-06-24] MEDS: Zinc Oxide Oint 2oz TOPIC SCH (08:56)
[2019-06-24] MEDS: Pantoprazole Inj IVP SCH ×2 (08:56→20:25)
[2019-06-24] MEDS: Heparin 5000 units/ml inj SUBQ SCH ×2 (08:57→21:00)
--- NOTE | 2019-06-24 09:30 | NUR ---
NURSE NOTES: Ruth Calloway, public guardian, contacted for consent for EGD. Unable to reach at this time, message left on voicemail. Awaiting call back
--- NOTE | 2019-06-24 10:39 | Pulmonolgy Critical Care Note ---
Critical Care - Asmt/Plan Problems: (1) Septic shock (2) Pyelonephritis (3) Chronic respiratory failure (4) Alzheimer's dementia (5) Severe erosive esophagitis (6) Feeding by G-tube (7) Diabetes (8) CVA (cerebral vascular accident) Respiratory: monitor respiratory rate, adjust FIO2, CXR Cardiac: continue to monitor HR/BP Renal: F/U I&O Infectious Disease: check cultures, continue antibiotics Gastrointestinal: continue feedings/current rate Affect: PRN ativan Prophylaxis: Protonix, Heparin Disposition: keep in ICU Discussed with: nurses, consultants, casework supervisornational facilities manager - Objective Last 24 Hour Vital Signs Date Time Temp Pulse Resp B/P (MAP) Pulse Ox O2 Delivery O2 Flow Rate FiO2 06/24/19 09:29 84 16 35 06/24/19 08:00 97.3 67 18 131/70 (90) 100 06/24/19 08:00 35 06/24/19 07:48 64 06/24/19 07:05 72 16 35 06/24/19 05:23 66 16 35 06/24/19 04:00 97.6 61 16 132/82 (99) 100 06/24/19 04:00 Mechanical Ventilator 06/24/19 03:36 66 06/24/19 03:03 65 16 35 06/24/19 01:30 80 17 35 06/24/19 01:00 35 06/24/19 00:00 97.7 68 16 139/77 (97) 100 06/24/19 00:00 35 06/24/19 00:00 Mechanical Ventilator 06/23/19 23:33 62 06/23/19 23:30 70 15 35 06/23/19 21:30 74 16 35 06/23/19 20:00 Mechanical Ventilator 06/23/19 20:00 35 06/23/19 20:00 97.7 73 16 147/77 (100) 98 06/23/19 19:30 71 16 35 06/23/19 19:04 69 06/23/19 16:35 89 16 35 06/23/19 16:00 Mechanical Ventilator 06/23/19 16:00 97.6 73 18 145/74 (97) 100 06/23/19 16:00 35 06/23/19 15:14 70 06/23/19 14:32 85 16 35 06/23/19 12:34 85 16 35 06/23/19 12:00 97.3 74 18 123/73 (90) 100 06/23/19 12:00 35 06/23/19 12:00 Mechanical Ventilator 06/23/19 11:43 74 06/23/19 11:22 35 Status: awake Condition: critical HEENT: atraumatic, normocephalic Heart: HR/BP stable Abdomen: soft, non-tender, feeding tube Extremities: no C/C/E, edema Micro: Microbiology Date/Time Source Procedure Growth Status 06/21/19 12:00 Drainage Fluid Gram Stain - Final Resulted 06/21/19 12:00 Wound Culture - Preliminary Klebsiella Pneumoniae Pseudomonas Aeruginosa Tea Albicans Resulted Critical Care - Subjective ROS Limited/Unobtainable: Yes Condition: critical EKG Rhythm: Sinus Rhythm FI02: 35 Vent Support Breath Rate: 16 Vent Support Mode: AC Vent Tidal Volume: 600 Sputum Amount: Small PEEP: 0.0 PIP: 44 I&O: Intake and Output 06/23/19 06/24/19 19:00 07:00 Intake Total 807.362 ml 585 ml Output Total 450 ml 250 ml Balance 357.362 ml 335 ml IV Total 807.362 ml 585 ml Output Urine Total 450 ml 250 ml # Voids 2 # Bowel Movements 1 CXR: no acute infiltrate Labs: Laboratory Tests Test 06/24/19 03:30 White Blood Count 9.2 K/UL (4.8-10.8) Red Blood Count 2.77 M/UL (4.70-6.10) L Hemoglobin 7.7 G/DL (14.2-18.0) L Hematocrit 23.6 % (42.0-52.0) L Mean Corpuscular Volume 85 FL (80-99) Mean Corpuscular Hemoglobin 27.9 PG (27.0-31.0) Mean Corpuscular Hemoglobin Concent 32.7 G/DL (32.0-36.0) Red Cell Distribution Width 15.5 % (11.6-14.8) H Platelet Count 141 K/UL (150-450) L Mean Platelet Volume 10.4 FL (6.5-10.1) H Neutrophils (%) (Auto) % (45.0-75.0) Lymphocytes (%) (Auto) % (20.0-45.0) Monocytes (%) (Auto) % (1.0-10.0) Eosinophils (%) (Auto) % (0.0-3.0) Basophils (%) (Auto) % (0.0-2.0) Differential Total Cells Counted 100 Neutrophils % (Manual) 72 % (45-75) Lymphocytes % (Manual) 21 % (20-45) Monocytes % (Manual) 6 % (1-10) Eosinophils % (Manual) 1 % (0-3) Basophils % (Manual) 0 % (0-2) Band Neutrophils 0 % (0-8) Platelet Estimate Decreased L Platelet Morphology Normal Anisocytosis 1+ Sodium Level 135 MMOL/L (136-145) L Potassium Level 4.3 MMOL/L (3.5-5.1) Chloride Level 104 MMOL/L (98-107) Carbon Dioxide Level 27 MMOL/L (21-32) Anion Gap 4 mmol/L (5-15) L Blood Urea Nitrogen 22 mg/dL (7-18) H Creatinine 1.0 MG/DL (0.55-1.30) Estimat Glomerular Filtration Rate > 60 mL/min (>60) Glucose Level 102 MG/DL (74-106) Calcium Level 8.5 MG/DL (8.5-10.1) Huma Keating MD Jun 24, 2019 10:39
--- NOTE | 2019-06-24 11:05 | Nephrology Progress Note ---
Assessment/Plan Problem List: (1) Septic shock (2) Hypothyroidism (3) Upper GI bleed (4) Respiratory failure, [id number] (5) Anemia Assessment Sepsis Shock on pressors GI Bleed Low Na and high K UTI HypoThyroidism Tracheostomy dependence Respiratory failure, feiru-fy-lhnsbqe Alzheimer's Feeding by G-tube Plan consider transfusion off pressors- On Midodrine On GT feeding On Reglan fluid challenge as needed adjust IV fluids transfuse as needed Monitor lytes and renal parametrs urine studies per orders Subjective ROS Limited/Unobtainable: Yes Objective Objective Last 24 Hour Vital Signs Date Time Temp Pulse Resp B/P (MAP) Pulse Ox O2 Delivery O2 Flow Rate FiO2 06/24/19 10:59 78 18 35 06/24/19 09:29 84 16 35 06/24/19 08:00 97.3 67 18 131/70 (90) 100 06/24/19 08:00 Mechanical Ventilator 06/24/19 08:00 35 06/24/19 07:48 64 06/24/19 07:05 72 16 35 06/24/19 05:23 66 16 35 06/24/19 04:00 97.6 61 16 132/82 (99) 100 06/24/19 04:00 Mechanical Ventilator 06/24/19 03:36 66 06/24/19 03:03 65 16 35 06/24/19 01:30 80 17 35 06/24/19 01:00 35 06/24/19 00:00 97.7 68 16 139/77 (97) 100 06/24/19 00:00 35 06/24/19 00:00 Mechanical Ventilator 06/23/19 23:33 62 06/23/19 23:30 70 15 35 06/23/19 21:30 74 16 35 06/23/19 20:00 Mechanical Ventilator 06/23/19 20:00 35 06/23/19 20:00 97.7 73 16 147/77 (100) 98 06/23/19 19:30 71 16 35 06/23/19 19:04 69 06/23/19 16:35 89 16 35 06/23/19 16:00 Mechanical Ventilator 06/23/19 16:00 97.6 73 18 145/74 (97) 100 06/23/19 16:00 35 06/23/19 15:14 70 06/23/19 14:32 85 16 35 06/23/19 12:34 85 16 35 06/23/19 12:00 97.3 74 18 123/73 (90) 100 06/23/19 12:00 35 06/23/19 12:00 Mechanical Ventilator 06/23/19 11:43 74 06/23/19 11:22 35 Intake and Output 06/23/19 06/24/19 19:00 07:00 Intake Total 807.362 ml 585 ml Output Total 450 ml 250 ml Balance 357.362 ml 335 ml IV Total 807.362 ml 585 ml Output Urine Total 450 ml 250 ml # Voids 2 # Bowel Movements 1 Laboratory Tests 06/24/19 03:30: White Blood Count 9.2, Red Blood Count 2.77L, Hemoglobin 7.7L, Hematocrit 23.6L , Mean Corpuscular Volume 85, Mean Corpuscular Hemoglobin 27.9, Mean Corpuscular Hemoglobin Concent 32.7, Red Cell Distribution Width 15.5H, Platelet Count 141L, Mean Platelet Volume 10.4H, Neutrophils (%) (Auto) , Lymphocytes (%) (Auto) , Monocytes (%) (Auto) , Eosinophils (%) (Auto) , Basophils (%) (Auto) , Differential Total Cells Counted 100, Neutrophils % ( Manual) 72, Lymphocytes % (Manual) 21, Monocytes % (Manual) 6, Eosinophils % ( Manual) 1, Basophils % (Manual) 0, Band Neutrophils 0, Platelet Estimate DecreasedL, Platelet Morphology Normal, Anisocytosis 1+, Sodium Level 135L, Potassium Level 4.3, Chloride Level 104, Carbon Dioxide Level 27, Anion Gap 4L, Blood Urea Nitrogen 22H, Creatinine 1.0, Estimat Glomerular Filtration Rate > 60 , Glucose Level 102, Calcium Level 8.5 Height (Feet): 5 Height (Inches): 8.00 Weight (Pounds): 188 General Appearance: no apparent distress EENT: other - vented Cardiovascular: normal rate Respiratory/Chest: decreased breath sounds Abdomen: distended Sav Salvador MD Jun 24, 2019 11:05
--- NOTE | 2019-06-24 11:26 | NUR ---
NURSE NOTES: Ruth Calloway, public guardian, contacted again for consent for EGD. Per Ms. Calloway, she is no longer assigned to Mr. Huffman's case. Received information for Sarah Oliver, Mr. Huffman's current public guardian. Ms. Oliver contacted but unable to be reached, message left on voicemail. Awaiting call back. Patient's contact information updated with admitting dept.
[2019-06-24 12:00] VITALS: BP 141/68
--- NOTE | 2019-06-24 12:38 | GI Progress Note ---
Assessment/Plan Problems: (1) Severe sepsis ICD Codes: A41.9 - Sepsis, unspecified organism; R65.20 - Severe sepsis without septic shock SNOMED: 12824393 (2) GT SITE LEAKING (3) Alzheimer's dementia ICD Codes: G30.9 - Alzheimer's disease, unspecified SNOMED: 67798893 (4) Upper GI bleed ICD Codes: K92.2 - Upper gastrointestinal hemorrhage SNOMED: 70970619 (5) Severe erosive esophagitis (6) Malfunction of gastrostomy tube ICD Codes: K94.23 - Gastrostomy malfunction SNOMED: 500277827 (7) Anemia ICD Codes: D64.9 - Anemia, unspecified SNOMED: 404829913 Status: unchanged Status Narrative Discussed with Dr. Wilson. Assessment/Plan EGD cancelled due to no consent. GT changed at the bedside to 20 Fr. protonix 40 mg Q12 Carafate fu CBC, stable H&H fu stool ob The patient was seen and examined at bedside and all new and available data was reviewed in the patients chart. I agree with the above findings, impression and plan. (Patient seen earlier today. Signature stamp does not reflect patient encounter time.). - Vitaliy Wilson MD Subjective Subjective limited Objective Last 24 Hour Vital Signs Date Time Temp Pulse Resp B/P (MAP) Pulse Ox O2 Delivery O2 Flow Rate FiO2 06/24/19 10:59 78 18 35 06/24/19 09:29 84 16 35 06/24/19 08:00 97.3 67 18 131/70 (90) 100 06/24/19 08:00 Mechanical Ventilator 06/24/19 08:00 35 06/24/19 07:48 64 06/24/19 07:05 72 16 35 06/24/19 05:23 66 16 35 06/24/19 04:00 97.6 61 16 132/82 (99) 100 06/24/19 04:00 Mechanical Ventilator 06/24/19 03:36 66 06/24/19 03:03 65 16 35 06/24/19 01:30 80 17 35 06/24/19 01:00 35 06/24/19 00:00 97.7 68 16 139/77 (97) 100 06/24/19 00:00 35 06/24/19 00:00 Mechanical Ventilator 06/23/19 23:33 62 06/23/19 23:30 70 15 35 06/23/19 21:30 74 16 35 06/23/19 20:00 Mechanical Ventilator 06/23/19 20:00 35 06/23/19 20:00 97.7 73 16 147/77 (100) 98 06/23/19 19:30 71 16 35 06/23/19 19:04 69 06/23/19 16:35 89 16 35 06/23/19 16:00 Mechanical Ventilator 06/23/19 16:00 97.6 73 18 145/74 (97) 100 06/23/19 16:00 35 06/23/19 15:14 70 06/23/19 14:32 85 16 35 Intake and Output 06/23/19 06/24/19 19:00 07:00 Intake Total 807.362 ml 585 ml Output Total 450 ml 250 ml Balance 357.362 ml 335 ml IV Total 807.362 ml 585 ml Output Urine Total 450 ml 250 ml # Voids 2 # Bowel Movements 1 Laboratory Tests Test 06/24/19 03:30 White Blood Count 9.2 K/UL (4.8-10.8) Red Blood Count 2.77 M/UL (4.70-6.10) L Hemoglobin 7.7 G/DL (14.2-18.0) L Hematocrit 23.6 % (42.0-52.0) L Mean Corpuscular Volume 85 FL (80-99) Mean Corpuscular Hemoglobin 27.9 PG (27.0-31.0) Mean Corpuscular Hemoglobin Concent 32.7 G/DL (32.0-36.0) Red Cell Distribution Width 15.5 % (11.6-14.8) H Platelet Count 141 K/UL (150-450) L Mean Platelet Volume 10.4 FL (6.5-10.1) H Neutrophils (%) (Auto) % (45.0-75.0) Lymphocytes (%) (Auto) % (20.0-45.0) Monocytes (%) (Auto) % (1.0-10.0) Eosinophils (%) (Auto) % (0.0-3.0) Basophils (%) (Auto) % (0.0-2.0) Differential Total Cells Counted 100 Neutrophils % (Manual) 72 % (45-75) Lymphocytes % (Manual) 21 % (20-45) Monocytes % (Manual) 6 % (1-10) Eosinophils % (Manual) 1 % (0-3) Basophils % (Manual) 0 % (0-2) Band Neutrophils 0 % (0-8) Platelet Estimate Decreased L Platelet Morphology Normal Anisocytosis 1+ Sodium Level 135 MMOL/L (136-145) L Potassium Level 4.3 MMOL/L (3.5-5.1) Chloride Level 104 MMOL/L (98-107) Carbon Dioxide Level 27 MMOL/L (21-32) Anion Gap 4 mmol/L (5-15) L Blood Urea Nitrogen 22 mg/dL (7-18) H Creatinine 1.0 MG/DL (0.55-1.30) Estimat Glomerular Filtration Rate > 60 mL/min (>60) Glucose Level 102 MG/DL (74-106) Calcium Level 8.5 MG/DL (8.5-10.1) Height (Feet): 5 Height (Inches): 8.00 Weight (Pounds): 188 General Appearance: alert Cardiovascular: normal rate Respiratory/Chest: normal breath sounds, no respiratory distress Abdominal Exam: soft Emanuel Quesada NP Jun 24, 2019 12:38
--- NOTE | 2019-06-24 12:40 | NUR ---
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 97.3 HR 67 RR 18 B/P 131/70 AC 15 TV 600 FIO2 35% PEEP 5 H/H 7.7/23.6 BUN 22 IS: AMIKACIN IV ERTAPENEM IV LEVAQUIN GT IVF D5 @ 50ML/HR MIDODRINE GT STEP DOWN STATUS
--- NOTE | 2019-06-24 13:32 | General Progress Note ---
Assessment/Plan Problem List: (1) Diabetes ICD Codes: E11.9 - Type 2 diabetes mellitus without complications SNOMED: 19790958 (2) HTN (hypertension) ICD Codes: I10 - Essential (primary) hypertension SNOMED: 45853376 (3) CVA (cerebral vascular accident) ICD Codes: I63.9 - Cerebral infarction, unspecified SNOMED: 863826808 (4) Severe protein-calorie malnutrition ICD Codes: E43 - Unspecified severe protein-calorie malnutrition SNOMED: 871307351 (5) Feeding by G-tube ICD Codes: Z93.1 - Gastrostomy status SNOMED: 732022634, 856574441 (6) Respiratory failure, [id number] ICD Codes: J96.20 - Respiratory failure, usboi-pu-ornmsax SNOMED: 41743414 (7) Anemia ICD Codes: D64.9 - Anemia, unspecified SNOMED: 911305351 (8) Chronic respiratory failure ICD Codes: J96.10 - Chronic respiratory failure, unspecified whether with hypoxia or hypercapnia SNOMED: 82857288 (9) Septic shock ICD Codes: A41.9 - Sepsis, unspecified organism; R65.21 - Severe sepsis with septic shock SNOMED: 14142292 (10) Alzheimer's dementia ICD Codes: G30.9 - Alzheimer's disease, unspecified SNOMED: 95323004 (11) Severe sepsis ICD Codes: A41.9 - Sepsis, unspecified organism; R65.20 - Severe sepsis without septic shock SNOMED: 39913507 (12) Hypothyroidism ICD Codes: E03.9 - Hypothyroidism, unspecified SNOMED: 82424681 Status: unchanged Assessment/Plan: vent abx wean pressor cbc bmp am ltach eval Subjective Constitutional: Reports: weakness Allergies: Coded Allergies: NO KNOWN DRUG ALLERGIES (Verified Allergy, Unknown, 09/11/16) All Systems: reviewed and negative except above Subjective trach vent altered Objective Last 24 Hour Vital Signs Date Time Temp Pulse Resp B/P (MAP) Pulse Ox O2 Delivery O2 Flow Rate FiO2 06/24/19 13:10 68 06/24/19 12:53 76 18 35 06/24/19 12:39 88 18 98 Mechanical Ventilator 35 06/24/19 12:00 Mechanical Ventilator 06/24/19 12:00 97.3 67 16 141/68 (92) 100 06/24/19 12:00 35 06/24/19 10:59 78 18 35 06/24/19 09:29 84 16 35 06/24/19 08:00 97.3 67 18 131/70 (90) 100 06/24/19 08:00 Mechanical Ventilator 06/24/19 08:00 35 06/24/19 07:48 64 06/24/19 07:05 72 16 35 06/24/19 05:23 66 16 35 06/24/19 04:00 97.6 61 16 132/82 (99) 100 06/24/19 04:00 Mechanical Ventilator 06/24/19 03:36 66 06/24/19 03:03 65 16 35 06/24/19 01:30 80 17 35 06/24/19 01:00 35 06/24/19 00:00 97.7 68 16 139/77 (97) 100 06/24/19 00:00 35 06/24/19 00:00 Mechanical Ventilator 06/23/19 23:33 62 06/23/19 23:30 70 15 35 06/23/19 21:30 74 16 35 06/23/19 20:00 Mechanical Ventilator 06/23/19 20:00 35 06/23/19 20:00 97.7 73 16 147/77 (100) 98 06/23/19 19:30 71 16 35 06/23/19 19:04 69 06/23/19 16:35 89 16 35 06/23/19 16:00 Mechanical Ventilator 06/23/19 16:00 97.6 73 18 145/74 (97) 100 06/23/19 16:00 35 06/23/19 15:14 70 06/23/19 14:32 85 16 35 Intake and Output 06/23/19 06/24/19 19:00 07:00 Intake Total 807.362 ml 585 ml Output Total 450 ml 250 ml Balance 357.362 ml 335 ml IV Total 807.362 ml 585 ml Output Urine Total 450 ml 250 ml # Voids 2 # Bowel Movements 1 Laboratory Tests 06/24/19 03:30: White Blood Count 9.2, Red Blood Count 2.77L, Hemoglobin 7.7L, Hematocrit 23.6L , Mean Corpuscular Volume 85, Mean Corpuscular Hemoglobin 27.9, Mean Corpuscular Hemoglobin Concent 32.7, Red Cell Distribution Width 15.5H, Platelet Count 141L, Mean Platelet Volume 10.4H, Neutrophils (%) (Auto) , Lymphocytes (%) (Auto) , Monocytes (%) (Auto) , Eosinophils (%) (Auto) , Basophils (%) (Auto) , Differential Total Cells Counted 100, Neutrophils % ( Manual) 72, Lymphocytes % (Manual) 21, Monocytes % (Manual) 6, Eosinophils % ( Manual) 1, Basophils % (Manual) 0, Band Neutrophils 0, Platelet Estimate DecreasedL, Platelet Morphology Normal, Anisocytosis 1+, Sodium Level 135L, Potassium Level 4.3, Chloride Level 104, Carbon Dioxide Level 27, Anion Gap 4L, Blood Urea Nitrogen 22H, Creatinine 1.0, Estimat Glomerular Filtration Rate > 60 , Glucose Level 102, Calcium Level 8.5 Height (Feet): 5 Height (Inches): 8.00 Weight (Pounds): 188 General Appearance: lethargic EENT: normal ENT inspection Neck: normal alignment Cardiovascular: normal peripheral pulses, normal rate, regular rhythm Respiratory/Chest: chest wall non-tender, lungs clear, normal breath sounds Abdomen: normal bowel sounds, non tender, soft Extremities: normal inspection Edema: no edema noted Arm (L), no edema noted Arm (R), no edema noted Leg (L), no edema noted Leg (R), no edema noted Pedal (L), no edema noted Pedal (R), no edema noted Generalized Neurologic: motor weakness Skin: normal pigmentation, warm/dry Gato Viveros DO Jun 24, 2019 13:32
--- NOTE | 2019-06-24 13:43 | Infectious Diseases Prog Note ---
Assessment/Plan Assessment/Plan Mr. Huffman is a 68 yo male with PMHx of of chronic resp failure trach/vent dependant, diffuse ulcerative esophagitis, peptic esophageal stricture, asthma, GERD, Dm2, CVA/TIA w/ hemiplegia, functional quadriplegia, CAD, CHF, ESBL UTI , GIB s/p multiple EGDs in the past, schizoaffective disorder, Dementia, hypothyroidism, malnutrition, non verbal, infected obstuctive ureterolithiasis/ w abscess s/p L NT palced 12/2018, encephalopathy, Alzheimer's disease, multiple admissions, subacute facility resident who was sent to the for hypotension and bradycardia. Septic Shock- likely 2ry to UTI and PNA- off pressors now off perssors now Hx of resistant infections 06/23 CXR; Bilateral right greater than left pleural effusions are again demonstrated. Bilateral interstitial and airspace edema persists, unchanged Urine Cx 06/14/19 - >100k ESBL P, stuarti, ESBL P mirabilis (both S Ertapenem , ZOsyn) Blood Cx - NTD CXR show probable pna sp cx PsA (R imipenem, I levaquin), S. maltophila (S bactrim, levaquin) GT leakage with cellulitis -wound cx MDR K.pna, MDR PsA (likely colonizers) Leukocytosis; SP Hypothermia; SP Chronic resp failure trach/vent dependant asthma Dm2 CVA/TIA w/ hemiplegia Functional quadriplegia CAD CHF GIB s/p multiple EGDs in the past Schizoaffective disorder Dementia Hypothyroidism Non verbal Alzheimer's disease PLAN: - Continue Amikacin #06/19 -Cont PO Levaquin #2/5 for S. maltophila -06/23 SP Ertapenem #9 and IV Vancomycin #9 -06/17 SP PO Vancomycin #3 -06/16 SP Flagyl #2 - monitor CBC and Temps -wound care per hospital protocol -GI f/u Thank you for this consult. [facility] will continue to follow the patient with you during this hospitalization. Subjective Allergies: Coded Allergies: NO KNOWN DRUG ALLERGIES (Verified Allergy, Unknown, 09/11/16) Subjective afebrile leukocytosis resolved Objective Vital Signs Last 24 Hour Vital Signs Date Time Temp Pulse Resp B/P (MAP) Pulse Ox O2 Delivery O2 Flow Rate FiO2 06/24/19 13:10 68 06/24/19 12:53 76 18 35 06/24/19 12:39 88 18 98 Mechanical Ventilator 35 06/24/19 12:00 Mechanical Ventilator 06/24/19 12:00 97.3 67 16 141/68 (92) 100 06/24/19 12:00 35 06/24/19 10:59 78 18 35 06/24/19 09:29 84 16 35 06/24/19 08:00 97.3 67 18 131/70 (90) 100 06/24/19 08:00 Mechanical Ventilator 06/24/19 08:00 35 06/24/19 07:48 64 06/24/19 07:05 72 16 35 06/24/19 05:23 66 16 35 06/24/19 04:00 97.6 61 16 132/82 (99) 100 06/24/19 04:00 Mechanical Ventilator 06/24/19 03:36 66 06/24/19 03:03 65 16 35 06/24/19 01:30 80 17 35 06/24/19 01:00 35 06/24/19 00:00 97.7 68 16 139/77 (97) 100 06/24/19 00:00 35 06/24/19 00:00 Mechanical Ventilator 06/23/19 23:33 62 06/23/19 23:30 70 15 35 06/23/19 21:30 74 16 35 06/23/19 20:00 Mechanical Ventilator 06/23/19 20:00 35 06/23/19 20:00 97.7 73 16 147/77 (100) 98 06/23/19 19:30 71 16 35 06/23/19 19:04 69 06/23/19 16:35 89 16 35 06/23/19 16:00 Mechanical Ventilator 06/23/19 16:00 97.6 73 18 145/74 (97) 100 06/23/19 16:00 35 06/23/19 15:14 70 06/23/19 14:32 85 16 35 Height (Feet): 5 Height (Inches): 8.00 Weight (Pounds): 188 Objective Gen: On vent in IVU HEENT: NCAT, MMM, PERRL, No Oral lesion, no scleral icterus NECK: supple, No LAD, No JVD, Trached LUNGS: Coarse B/L, No W/C CARDS: RRR, S1, S2, No M/R/G, ABD: Soft, NT, ND, No R/G, + BS, No HSM, No Masses, PEG : Deferred Ext: C/C/E, Pulses 2+ B/L (DP, Rad): NEURO: A/O x 0, no following SKIN: Warm/dry, No rashes Laboratory Tests Test 06/24/19 03:30 White Blood Count 9.2 K/UL (4.8-10.8) Red Blood Count 2.77 M/UL (4.70-6.10) L Hemoglobin 7.7 G/DL (14.2-18.0) L Hematocrit 23.6 % (42.0-52.0) L Mean Corpuscular Volume 85 FL (80-99) Mean Corpuscular Hemoglobin 27.9 PG (27.0-31.0) Mean Corpuscular Hemoglobin Concent 32.7 G/DL (32.0-36.0) Red Cell Distribution Width 15.5 % (11.6-14.8) H Platelet Count 141 K/UL (150-450) L Mean Platelet Volume 10.4 FL (6.5-10.1) H Neutrophils (%) (Auto) % (45.0-75.0) Lymphocytes (%) (Auto) % (20.0-45.0) Monocytes (%) (Auto) % (1.0-10.0) Eosinophils (%) (Auto) % (0.0-3.0) Basophils (%) (Auto) % (0.0-2.0) Differential Total Cells Counted 100 Neutrophils % (Manual) 72 % (45-75) Lymphocytes % (Manual) 21 % (20-45) Monocytes % (Manual) 6 % (1-10) Eosinophils % (Manual) 1 % (0-3) Basophils % (Manual) 0 % (0-2) Band Neutrophils 0 % (0-8) Platelet Estimate Decreased L Platelet Morphology Normal Anisocytosis 1+ Sodium Level 135 MMOL/L (136-145) L Potassium Level 4.3 MMOL/L (3.5-5.1) Chloride Level 104 MMOL/L (98-107) Carbon Dioxide Level 27 MMOL/L (21-32) Anion Gap 4 mmol/L (5-15) L Blood Urea Nitrogen 22 mg/dL (7-18) H Creatinine 1.0 MG/DL (0.55-1.30) Estimat Glomerular Filtration Rate > 60 mL/min (>60) Glucose Level 102 MG/DL (74-106) Calcium Level 8.5 MG/DL (8.5-10.1) Current Medications Medications (Trade) Dose Ordered Sig/Wanda Route PRN Reason Start Time Stop Time Status Last Admin Dose Admin Acetaminophen (Tylenol) 650 mg Q4H PRN GT fever (temp>100.5F) 06/19/19 04:00 07/14/19 03:59 Albuterol/ Ipratropium (Albuterol/ Ipratropium) 3 ml Q4H PRN HHN Shortness of Breath 06/21/19 11:00 06/26/19 10:59 Amikacin Protocol (Amikacin pharmacy to dose) 1 ea DAILY PRN MISC PER RX PROTOCOL 06/19/19 09:00 07/14/19 16:44 Amikacin Sulfate 500 mg/Sodium Chloride 112 ml @ 112 mls/hr Q36H IV 06/23/19 18:00 06/30/19 17:59 06/23/19 18:46 Chlorhexidine Gluconate (Jasmin-Hex 2%) 1 applic DAILY@2000 TOPIC 06/20/19 20:00 07/20/19 19:59 06/23/19 20:12 Dextrose 1,000 ml @ 50 mls/hr Q20H IV 06/19/19 03:15 07/18/19 12:59 06/24/19 02:36 Heparin Sodium (Porcine) (Heparin 5000 units/ml) 5,000 units EVERY 12 HOURS SUBQ 06/19/19 09:00 07/14/19 20:59 06/20/19 08:42 Levofloxacin (Levaquin) 750 mg QOD GT 06/23/19 14:00 06/30/19 13:59 06/23/19 14:54 Levothyroxine Sodium (Synthroid) 88 mcg DAILY@0630 GT 06/22/19 06:30 07/20/19 06:29 06/24/19 05:35 Midodrine (Pro-Amatine) 2.5 mg EVERY 8 HOURS GT 06/23/19 22:00 07/17/19 12:59 06/24/19 05:35 Ondansetron HCl (Zofran) 4 mg Q6H PRN IVP Nausea & Vomiting 06/19/19 08:30 07/14/19 14:29 Pantoprazole (Protonix) 40 mg EVERY 12 HOURS IVP 06/21/19 09:00 07/21/19 08:59 06/24/19 08:56 Polyethylene Glycol (Miralax) 17 gm DAILYPRN PRN GT Constipation 06/19/19 14:30 07/14/19 14:29 Sucralfate (Carafate) 1 gm EVERY 8 HOURS GT 06/23/19 22:00 07/21/19 08:59 06/24/19 13:30 Zinc Oxide (Zinc Oxide) 1 applic DAILY TOPIC 06/21/19 09:00 07/21/19 08:59 06/24/19 08:56 Lisy Lai M.D. Jun 24, 2019 13:43
--- NOTE | 2019-06-24 13:46 | NUR ---
Social Service Note Follow up call placed to the public guardian's office [phone]. Assigned public guardian Saarh Oliver [phone]. Patient is LPS conserved. Sarah is unable to provide medical consents for patient. Either hospital can submit procedure to court for approval or MD to document necessity, risk and benefits and provide consent for procedure. SW informed charge nurse.
--- NOTE | 2019-06-24 14:11 | Hematology/Onc Progress Note ---
Assessment/Plan Assessment/Plan ASSESSMENT AND RECOMMENDATIONS # Anemia of chronic disease due to underlying chronic medical issues, multifactorial --> Anemia w/u has been reviewed and c/w acd ferritin 635, tibc 160 --> No evidence of hemolysis is noted, peripheral smear has been reviewed. --> Hgb goal >7. Transfuse prn. --> Epogen or iron at this time is not particularly indicated --> unable to obtain consent, with no family --> r/o hemolysis as well --> hgb 7.5-->8-->8.7-->8.2-->7.8-->8 --> ENDOSCOPY SUNDAY potentially--> cancelled given no consent --> spep is negative for bands # Leukocytosis. Likely related to underlying infection versus reactive process. patient with septic shock on admission --> Peripheral has been reviewed--> rouleaux formation on smear --> Medications have been reviewed --> Imaging has been reviewed. CXR shows Suboptimal positioning. No interval consolidation, overt edema or other acute cardiopulmonary findings. --> urine culture with ++uti on cultures provedencia --> Has been started on abx, empiric treatment (ertap/vanc) --> wbc is 36-->26k-->9k # Thrombocytopenia decreased since admission --> plt count 190-->123k-->101k-->95k-->93k-->120k --> abx for id # Septic shock poa --> on abx per id --> initially on pressors, now off # Upper GI vomiting bleed in prior admission --> currently appears to have resolved # Trach and PEG. --> chronic # Hyperkalemia --> as per renal # Dvt ppx heparin sq The timing of this note does not necessarily reflect the time of the patient was seen. Greatly appreciate consultation. Subjective Constitutional: Denies: no symptoms, chills, fever, malaise, weakness, other HEENT: Denies: no symptoms, eye pain, blurred vision, tearing, double vision, ear pain, ear discharge, nose pain, nose congestion, throat pain, throat swelling, mouth pain, mouth swelling, other Cardiovascular: Denies: no symptoms, chest pain, edema, irregular heart rate, lightheadedness, palpitations, syncope, other Respiratory: Denies: no symptoms, cough, shortness of breath, SOB with excertion, SOB at rest, sputum, wheezing, other Genitourinary: Denies: no symptoms, burning, discharge, frequency, flank pain, hematuria, incontinence, pain, urgency, other Neurologic/Psychiatric: Denies: no symptoms, anxiety, depressed, emotional problems, headache, numbness, paresthesia, pre-existing deficit, seizure, tingling, tremors, weakness, other Endocrine: Denies: no symptoms, excessive sweating, flushing, intolerance to cold, intolerance to heat, increased hunger, increased thirst, increased urine, unexplained weight gain, unexplained weight loss, other Allergies: Coded Allergies: NO KNOWN DRUG ALLERGIES (Verified Allergy, Unknown, 09/11/16) Subjective 06/17: blood transfusion completed, on low dose pressors, no bleeding noted 06/19: liya rn, no major events, cbc reviewed, tube feeds ongoing 06/22: no major changes, no bleeding or night sweats, on abx, in sariah 06/23: no f/c, no bleeding, labs noted, in sariah, hgb 8, plt 120k 06/24: labs reviewed, no bleeding, no night sweats, no bleeding Objective Objective Current Medications Medications (Trade) Dose Ordered Sig/Wanda Route PRN Reason Start Time Stop Time Status Last Admin Dose Admin Acetaminophen (Tylenol) 650 mg Q4H PRN GT fever (temp>100.5F) 06/19/19 04:00 07/14/19 03:59 Albuterol/ Ipratropium (Albuterol/ Ipratropium) 3 ml Q4H PRN HHN Shortness of Breath 06/21/19 11:00 06/26/19 10:59 Chlorhexidine Gluconate (Jasmin-Hex 2%) 1 applic DAILY@1999 TOPIC 06/20/19 20:00 07/20/19 19:59 06/23/19 20:12 Dextrose 1,000 ml @ 50 mls/hr Q20H IV 06/19/19 03:15 07/18/19 12:59 06/24/19 02:36 Heparin Sodium (Porcine) (Heparin 5000 units/ml) 5,000 units EVERY 12 HOURS SUBQ 06/19/19 09:00 07/14/19 20:59 06/20/19 08:42 Levofloxacin (Levaquin) 750 mg QOD GT 06/23/19 14:00 06/30/19 13:59 06/23/19 14:54 Levothyroxine Sodium (Synthroid) 88 mcg DAILY@0630 GT 06/22/19 06:30 07/20/19 06:29 06/24/19 05:35 Midodrine (Pro-Amatine) 2.5 mg EVERY 8 HOURS GT 06/23/19 22:00 07/17/19 12:59 06/24/19 05:35 Ondansetron HCl (Zofran) 4 mg Q6H PRN IVP Nausea & Vomiting 06/19/19 08:30 07/14/19 14:29 Pantoprazole (Protonix) 40 mg EVERY 12 HOURS IVP 06/21/19 09:00 07/21/19 08:59 06/24/19 08:56 Polyethylene Glycol (Miralax) 17 gm DAILYPRN PRN GT Constipation 06/19/19 14:30 07/14/19 14:29 Sucralfate (Carafate) 1 gm EVERY 8 HOURS GT 06/23/19 22:00 07/21/19 08:59 06/24/19 13:30 Zinc Oxide (Zinc Oxide) 1 applic DAILY TOPIC 06/21/19 09:00 07/21/19 08:59 06/24/19 08:56 Last 24 Hour Vital Signs Date Time Temp Pulse Resp B/P (MAP) Pulse Ox O2 Delivery O2 Flow Rate FiO2 06/24/19 13:10 68 06/24/19 12:53 76 18 35 06/24/19 12:39 88 18 98 Mechanical Ventilator 35 06/24/19 12:00 Mechanical Ventilator 06/24/19 12:00 97.3 67 16 141/68 (92) 100 06/24/19 12:00 35 06/24/19 10:59 78 18 35 06/24/19 09:29 84 16 35 06/24/19 08:00 97.3 67 18 131/70 (90) 100 06/24/19 08:00 Mechanical Ventilator 06/24/19 08:00 35 06/24/19 07:48 64 06/24/19 07:05 72 16 35 06/24/19 05:23 66 16 35 06/24/19 04:00 97.6 61 16 132/82 (99) 100 06/24/19 04:00 Mechanical Ventilator 06/24/19 03:36 66 06/24/19 03:03 65 16 35 06/24/19 01:30 80 17 35 06/24/19 01:00 35 06/24/19 00:00 97.7 68 16 139/77 (97) 100 06/24/19 00:00 35 06/24/19 00:00 Mechanical Ventilator 06/23/19 23:33 62 06/23/19 23:30 70 15 35 06/23/19 21:30 74 16 35 06/23/19 20:00 Mechanical Ventilator 06/23/19 20:00 35 06/23/19 20:00 97.7 73 16 147/77 (100) 98 06/23/19 19:30 71 16 35 06/23/19 19:04 69 06/23/19 16:35 89 16 35 06/23/19 16:00 Mechanical Ventilator 06/23/19 16:00 97.6 73 18 145/74 (97) 100 06/23/19 16:00 35 06/23/19 15:14 70 06/23/19 14:32 85 16 35 06/23/19 12:34 85 16 35 06/23/19 12:00 97.3 74 18 123/73 (90) 100 06/23/19 12:00 35 06/23/19 12:00 Mechanical Ventilator 06/23/19 11:43 74 06/23/19 11:22 35 06/23/19 10:33 85 16 35 06/23/19 09:14 83 16 35 06/23/19 08:03 79 06/23/19 08:00 97.6 73 18 145/74 (97) 100 06/23/19 08:00 Mechanical Ventilator 06/23/19 06:33 84 16 35 06/23/19 05:22 82 16 35 06/23/19 04:00 97.6 83 20 128/78 (95) 100 06/23/19 04:00 Mechanical Ventilator 06/23/19 04:00 35 06/23/19 03:43 85 06/23/19 02:41 84 16 35 06/23/19 01:00 87 17 35 06/23/19 00:00 Mechanical Ventilator 06/23/19 00:00 89 06/23/19 00:00 97.9 83 18 118/84 (95) 100 06/22/19 22:36 89 20 35 06/22/19 21:18 82 16 35 06/22/19 20:00 Mechanical Ventilator 06/22/19 20:00 35 06/22/19 20:00 87 06/22/19 20:00 97.7 85 18 129/59 (82) 100 06/22/19 19:29 85 17 35 06/22/19 16:45 91 17 35 06/22/19 16:00 88 06/22/19 16:00 35 06/22/19 16:00 97.7 88 18 144/68 (93) 100 06/22/19 16:00 Mechanical Ventilator 06/22/19 15:10 84 16 35 06/22/19 14:21 97.2 84 17 116/69 (85) 100 Intake and Output 06/23/19 06/24/19 19:00 07:00 Intake Total 807.362 ml 585 ml Output Total 450 ml 250 ml Balance 357.362 ml 335 ml IV Total 807.362 ml 585 ml Output Urine Total 450 ml 250 ml # Voids 2 # Bowel Movements 1 Labs Test 06/21/19 17:45 06/22/19 06:40 06/23/19 04:00 06/23/19 08:40 Random Vancomycin Level 21.6 ug/mL 15.4 ug/mL White Blood Count 13.1 K/UL (4.8-10.8) 10.7 K/UL (4.8-10.8) Red Blood Count 2.84 M/UL (4.70-6.10) 2.89 M/UL (4.70-6.10) Hemoglobin 7.8 G/DL (14.2-18.0) 8.0 G/DL (14.2-18.0) Hematocrit 24.3 % (42.0-52.0) 24.8 % (42.0-52.0) Mean Corpuscular Volume 86 FL (80-99) 86 FL (80-99) Mean Corpuscular Hemoglobin 27.6 PG (27.0-31.0) 27.8 PG (27.0-31.0) Mean Corpuscular Hemoglobin Concent 32.2 G/DL (32.0-36.0) 32.4 G/DL (32.0-36.0) Red Cell Distribution Width 14.9 % (11.6-14.8) 15.4 % (11.6-14.8) Platelet Count 93 K/UL (150-450) 120 K/UL (150-450) Mean Platelet Volume 9.3 FL (6.5-10.1) 8.7 FL (6.5-10.1) Neutrophils (%) (Auto) % (45.0-75.0) 73.1 % (45.0-75.0) Lymphocytes (%) (Auto) % (20.0-45.0) 10.3 % (20.0-45.0) Monocytes (%) (Auto) % (1.0-10.0) 12.4 % (1.0-10.0) Eosinophils (%) (Auto) % (0.0-3.0) 3.7 % (0.0-3.0) Basophils (%) (Auto) % (0.0-2.0) 0.5 % (0.0-2.0) Differential Total Cells Counted 100 Neutrophils % (Manual) 82 % (45-75) Lymphocytes % (Manual) 8 % (20-45) Monocytes % (Manual) 8 % (1-10) Eosinophils % (Manual) 2 % (0-3) Basophils % (Manual) 0 % (0-2) Band Neutrophils 0 % (0-8) Platelet Estimate Decreased Platelet Morphology Normal Hypochromasia 3+ Anisocytosis 1+ Sodium Level 141 MMOL/L (136-145) 139 MMOL/L (136-145) Potassium Level 5.0 MMOL/L (3.5-5.1) 4.7 MMOL/L (3.5-5.1) Chloride Level 112 MMOL/L (98-107) 109 MMOL/L (98-107) Carbon Dioxide Level 25 MMOL/L (21-32) 27 MMOL/L (21-32) Anion Gap 4 mmol/L (5-15) 3 mmol/L (5-15) Blood Urea Nitrogen 31 mg/dL (7-18) 28 mg/dL (7-18) Creatinine 1.3 MG/DL (0.55-1.30) 1.2 MG/DL (0.55-1.30) Estimat Glomerular Filtration Rate 54.6 mL/min (>60) 59.9 mL/min (>60) Glucose Level 85 MG/DL (74-106) 83 MG/DL (74-106) Calcium Level 8.4 MG/DL (8.5-10.1) 8.5 MG/DL (8.5-10.1) Prothrombin Time 10.5 SEC (9.30-11.50) Prothromb Time International Ratio 1.0 (0.9-1.1) Activated Partial Thromboplast Time 28 SEC (23-33) Phosphorus Level 3.2 MG/DL (2.5-4.9) Magnesium Level 1.9 MG/DL (1.8-2.4) Total Bilirubin 0.2 MG/DL (0.2-1.0) Aspartate Amino Transf (AST/SGOT) 52 U/L (15-37) Alanine Aminotransferase (ALT/SGPT) 66 U/L (12-78) Alkaline Phosphatase 187 U/L (46-116) C-Reactive Protein, Quantitative 4.4 mg/dL (0.00-0.90) Pro-B-Type Natriuretic Peptide 9894 pg/mL (0-125) Total Protein 5.8 G/DL (6.4-8.2) Albumin 1.9 G/DL (3.4-5.0) Globulin 3.9 g/dL Albumin/Globulin Ratio 0.5 (1.0-2.7) Amikacin Level Trough 4.8 ug/mL (4.0-8.0) Test 06/23/19 09:14 06/23/19 09:18 06/24/19 03:30 Arterial Blood pH 7.488 (7.350-7.450) Arterial Blood Partial Pressure CO2 30.9 mmHg (35.0-45.0) Arterial Blood Partial Pressure O2 152.0 mmHg (75.0-100.0) Arterial Blood HCO3 22.9 mmol/L (22.0-26.0) Arterial Blood Oxygen Saturation 98.8 % (95-100) Arterial Blood Base Excess -0.2 (-2-2) Ger Test Positive Total Protein (PEP) 5.1 g/dL (6.0-8.5) Albumin (PEP) 2.1 g/dL (2.9-4.4) Globulin (PEP) 3.0 g/dL (2.2-3.9) Albumin/Globulin Ratio 0.7 (0.7-1.7) Uvgrv-3-Ossqzigqm 0.3 g/dL (0.0-0.4) Sgwuc-3-Mltgwoxex 0.7 g/dL (0.4-1.0) Beta Globulins 0.8 g/dL (0.7-1.3) Beta Gamma Globulin 1.1 g/dL (0.4-1.8) PEP Abnormal Protein Bands Not observed g/dL (Not Protein Electrophoresis Interpret Comment (.) Hepatitis A IgM Antibody Negative (Negative) Hepatitis B Surface Antigen Negative (Negative) Hepatitis B Core IgM Antibody Negative (Negative) Hepatitis C Antibody 0.1 s/co ratio (0.0-0.9) HIV (1&2) Antibody Rapid Negative (NEGATIVE) White Blood Count 9.2 K/UL (4.8-10.8) Red Blood Count 2.77 M/UL (4.70-6.10) Hemoglobin 7.7 G/DL (14.2-18.0) Hematocrit 23.6 % (42.0-52.0) Mean Corpuscular Volume 85 FL (80-99) Mean Corpuscular Hemoglobin 27.9 PG (27.0-31.0) Mean Corpuscular Hemoglobin Concent 32.7 G/DL (32.0-36.0) Red Cell Distribution Width 15.5 % (11.6-14.8) Platelet Count 141 K/UL (150-450) Mean Platelet Volume 10.4 FL (6.5-10.1) Neutrophils (%) (Auto) % (45.0-75.0) Lymphocytes (%) (Auto) % (20.0-45.0) Monocytes (%) (Auto) % (1.0-10.0) Eosinophils (%) (Auto) % (0.0-3.0) Basophils (%) (Auto) % (0.0-2.0) Differential Total Cells Counted 100 Neutrophils % (Manual) 72 % (45-75) Lymphocytes % (Manual) 21 % (20-45) Monocytes % (Manual) 6 % (1-10) Eosinophils % (Manual) 1 % (0-3) Basophils % (Manual) 0 % (0-2) Band Neutrophils 0 % (0-8) Platelet Estimate Decreased Platelet Morphology Normal Anisocytosis 1+ Sodium Level 135 MMOL/L (136-145) Potassium Level 4.3 MMOL/L (3.5-5.1) Chloride Level 104 MMOL/L (98-107) Carbon Dioxide Level 27 MMOL/L (21-32) Anion Gap 4 mmol/L (5-15) Blood Urea Nitrogen 22 mg/dL (7-18) Creatinine 1.0 MG/DL (0.55-1.30) Estimat Glomerular Filtration Rate > 60 mL/min (>60) Glucose Level 102 MG/DL (74-106) Calcium Level 8.5 MG/DL (8.5-10.1) Height (Feet): 5 Height (Inches): 8.00 Weight (Pounds): 188 Objective PHYSICAL EXAMINATION: VITAL SIGNS: Have been reviewed HEENT: Trach/vent site ++ CHEST: Bibasilar rales CV: Regular rate and rhythm. GI: Positive bowel sounds. G-tube++ EXTREMITIES: + edema. NEUROLOGICAL: Reflexes equal on both sides. Nikos Nath MD Jun 24, 2019 14:11
--- NOTE | 2019-06-24 14:15 | NUR ---
NURSE NOTES: Received telephone order from SHANNA Kapoor [employer]ODUCTION GRADER. Patient to resume diet d/t no consent for EGD, NPO at midnight for possible EGD tomorrow. G-Tube feeding of Osmolite 1.2 initiated at 20 cc/hr at 13:30. HoB elevated. Received phone call from social work professor at 13:55 that public guardian called and will not sign consent for EGD but stated the doctors can sign for the patient if they want the procedure to be done. Jim made aware. H/H stable. Diet orders to be kept as is. Will continue to monitor.
--- NOTE | 2019-06-24 15:19 | Surgery Progress Note ---
Surgery Progress Note Subjective Additional Comments no acute events labs noted and stable social services analyst note noted and patient with guardian. consent for medical procedures need to be requested from courts. will discuss with GI dressings saturated and removed. Objective Last 24 Hour Vital Signs Date Time Temp Pulse Resp B/P (MAP) Pulse Ox O2 Delivery O2 Flow Rate FiO2 06/24/19 13:10 68 06/24/19 12:53 76 18 35 06/24/19 12:39 88 18 98 Mechanical Ventilator 35 06/24/19 12:00 Mechanical Ventilator 06/24/19 12:00 97.3 67 16 141/68 (92) 100 06/24/19 12:00 35 06/24/19 10:59 78 18 35 06/24/19 09:29 84 16 35 06/24/19 08:00 97.3 67 18 131/70 (90) 100 06/24/19 08:00 Mechanical Ventilator 06/24/19 08:00 35 06/24/19 07:48 64 06/24/19 07:05 72 16 35 06/24/19 05:23 66 16 35 06/24/19 04:00 97.6 61 16 132/82 (99) 100 06/24/19 04:00 Mechanical Ventilator 06/24/19 03:36 66 06/24/19 03:03 65 16 35 06/24/19 01:30 80 17 35 06/24/19 01:00 35 06/24/19 00:00 97.7 68 16 139/77 (97) 100 06/24/19 00:00 35 06/24/19 00:00 Mechanical Ventilator 06/23/19 23:33 62 06/23/19 23:30 70 15 35 06/23/19 21:30 74 16 35 06/23/19 20:00 Mechanical Ventilator 06/23/19 20:00 35 06/23/19 20:00 97.7 73 16 147/77 (100) 98 06/23/19 19:30 71 16 35 06/23/19 19:04 69 06/23/19 16:35 89 16 35 06/23/19 16:00 Mechanical Ventilator 06/23/19 16:00 97.6 73 18 145/74 (97) 100 06/23/19 16:00 35 I&O Intake and Output 06/23/19 06/24/19 19:00 07:00 Intake Total 807.362 ml 585 ml Output Total 450 ml 250 ml Balance 357.362 ml 335 ml IV Total 807.362 ml 585 ml Output Urine Total 450 ml 250 ml # Voids 2 # Bowel Movements 1 Dressing: saturated Wound: clean Cardiovascular: RSR Respiratory: decreased breath sounds Abdomen: soft, present bowel sounds, other, non-distended Extremities: no cyanosis Laboratory Tests Test 06/24/19 03:30 White Blood Count 9.2 K/UL (4.8-10.8) Red Blood Count 2.77 M/UL (4.70-6.10) L Hemoglobin 7.7 G/DL (14.2-18.0) L Hematocrit 23.6 % (42.0-52.0) L Mean Corpuscular Volume 85 FL (80-99) Mean Corpuscular Hemoglobin 27.9 PG (27.0-31.0) Mean Corpuscular Hemoglobin Concent 32.7 G/DL (32.0-36.0) Red Cell Distribution Width 15.5 % (11.6-14.8) H Platelet Count 141 K/UL (150-450) L Mean Platelet Volume 10.4 FL (6.5-10.1) H Neutrophils (%) (Auto) % (45.0-75.0) Lymphocytes (%) (Auto) % (20.0-45.0) Monocytes (%) (Auto) % (1.0-10.0) Eosinophils (%) (Auto) % (0.0-3.0) Basophils (%) (Auto) % (0.0-2.0) Differential Total Cells Counted 100 Neutrophils % (Manual) 72 % (45-75) Lymphocytes % (Manual) 21 % (20-45) Monocytes % (Manual) 6 % (1-10) Eosinophils % (Manual) 1 % (0-3) Basophils % (Manual) 0 % (0-2) Band Neutrophils 0 % (0-8) Platelet Estimate Decreased L Platelet Morphology Normal Anisocytosis 1+ Sodium Level 135 MMOL/L (136-145) L Potassium Level 4.3 MMOL/L (3.5-5.1) Chloride Level 104 MMOL/L (98-107) Carbon Dioxide Level 27 MMOL/L (21-32) Anion Gap 4 mmol/L (5-15) L Blood Urea Nitrogen 22 mg/dL (7-18) H Creatinine 1.0 MG/DL (0.55-1.30) Estimat Glomerular Filtration Rate > 60 mL/min (>60) Glucose Level 102 MG/DL (74-106) Calcium Level 8.5 MG/DL (8.5-10.1) Plan Problems: (1) Severe protein-calorie malnutrition Assessment & Plan: DAILY ESTIMATED NEEDS: Needs based on Critical care, underweight TF AQUATIC DIRECTOR 56.8 30-35 kcals/kg 3612-4682 total kcals 1.25-2 g protein/kg 71-113.6 g total protein 25-30 mL/kg 2015-6072 total fluid mLs NUTRITION DIAGNOSIS: * Increased kcal/prot intake needs R/T sepsis and underweight status as evidenced by pt adm w/ critically elev WBC (35.7*), febrile, @68% [place] Body Weight. * Swallowing difficulty R/T respiratory status as evidenced by pt vent dep via trach, PEG dep. ENTERAL NUTRITION RECOMMENDATIONS: Nepro @45mL/hr x 22hr to provide 990mL, 1782kcal, 80g pro, 720mL free water -When Hemodynamically stable, start Nepro @ 15mL/hr for 6 hrs. -Advance as tolerated 10mL q 4-6 hrs to goal. -TF @goal meets 100% est needs. -Flush per MD/ HOB >30 degrees. ADDITIONAL RECOMMENDATIONS: * Calibrated bedscale weight for accurate CBW + weekly wt monitoring * Per SNF: Ht of 6'1", Wt 125# (05/2019) * TF recs as above when medically stable * Monitor for cont'd need of renal formula (K 5.5) * Monitor lytes and hydration status. (2) Feeding by G-tube Assessment & Plan: g tube changed planned endoscopy tomorrow unable to do today because of consent (3) Respiratory failure, [id number] (4) Septic shock Assessment & Plan: hypotensive - improved tachycardic - improved labs as above improving PICC line placed And central line removed will follow with recs thank you (5) Severe sepsis (6) GT SITE LEAKING Assessment & Plan: Patient identified worsening G-tube site leakage and cellulitis. This has been noted on prior admissions which is cared for. Plan for placement as below Pt presents with contractures. Skin erosions to abdominal region, and multiple areas of non-blanching erythema. Skin erosion noted to abdomen extending around GT and mostly to L abdominal area, skin is grossly red and excoriated. Furuncle noted to L flank oozing moderate amt purulent exudate. Non-blanchable erythema without fluctuance noted to L lateral malleolus (L) 1.5cm x (W)3cm. Non-blanchable erythema without fluctuance noted to lateral L foot (L)1cm x (W) 1cm. Non-blanchable erythema noted to sacral cleft. No other skin concerns noted. Tx.Plan: Apply Zinc Oxide Paste to GT site and excoriated areas on abd daily and prn. Apply Betadine to Boil L flank Daily .Cover with Optifoam drsg. Change daily and prn. Apply Moisture Barrier Paste to sacrum. Cover with Optifoam drsg. Change every 3 days and prn. Apply Cavilon to Non-blanchable areas L foot and bilat heels. Cover each site with Optifoam drsg. Change every 7 days and prn. Reposition at least every 2hours or as tolerated. Place pillow between knees. Off-load heels with pillow. APM/RENO Mattress overlay. Quirino Bernard Jun 24, 2019 15:19
[2019-06-24 16:00] VITALS: BP 124/65
--- NOTE | 2019-06-24 19:10 | NUR ---
HAND-OFF: Report given to Kirsten Maxwell RN. Endorsed that patient is to eb NPO after midnight for possible EGD tomorrow.
--- NOTE | 2019-06-24 19:45 | NUR ---
NURSE NOTES: Received patient from ODILIA Jeffrey. patient is observed resting in bed, eyes open, flat affect, nonverbal, unable to make needs known. no s/sx of pain noted at this time. vent to trach settings are as follows: Portex: 8, AC: 16, TV: 600, FiO2: 35%, PEEP: 0. saturating at 93%, no s/sx of respiratory distress noted at this time. F/C is patent and intact, draining yellow urine. G-tube site is patent and intact, running feeding at 35 cc/hr. HOB elevated, no residual noted. skin alterations noted. ALEXI PICC noted, dressing dry and intact, running D5W at 50cc/hr. bed in lowest position and locked, seizure precautions in place, padded siderails up X3, call light within reach. will continue to monitor.
[2019-06-24 20:00] VITALS: BP 129/77
[2019-06-24] MEDS: Dyna-Hex 2% Top Sol 2oz TOPIC SCH (20:23)
[2019-06-25] VITALS: BP 120/65
[2019-06-25 04:00] VITALS: BP 127/77
[2019-06-25 05:59] LABS: ANION GAP 3 mmol/L (5-15); BLOOD UREA NITROGEN 20 mg/dL (7-18); CALCIUM 8.5 MG/DL (8.5-10.1); CARBON DIOXIDE 27 MMOL/L (21-32); CHLORIDE 103 MMOL/L (98-107); CREATININE 0.9 MG/DL (0.55-1.30); POTASSIUM 4.4 MMOL/L (3.5-5.1); SODIUM 132 MMOL/L (136-145)
[2019-06-25 06:00] LABS: HEMATOCRIT 22.6 % (42.0-52.0); HEMOGLOBIN 7.4 G/DL (14.2-18.0); MEAN CORPUSCULAR VOLUME 85 FL (80-99); PLATELET COUNT 169 K/UL (150-450); RED BLOOD COUNT 2.66 M/UL (4.70-6.10); RED CELL DISTRIBUTION WIDTH 15.5 % (11.6-14.8); WHITE BLOOD COUNT 7.6 K/UL (4.8-10.8)
[2019-06-25 06:03] LABS: PHOSPHORUS 3.2 MG/DL (2.5-4.9)
[2019-06-25] MEDS: Sucralfate 1gm tab GT SCH ×3 (06:23→21:11)
--- NOTE | 2019-06-25 07:34 | NUR ---
HAND-OFF: Report given to ODILIA Monson. patient is in stable condition. endorsed plan of care.
--- NOTE | 2019-06-25 07:38 | NUR ---
NURSE NOTES: Late Entry (correct time 07): Pt received from Hanh Maxwell RN in stable condition with no cardiopulmonary distress noted. Pt is asleep in bed, trache to vent, non verbal, Portex 8, AC 16 TV 600 FiO2 35% with no Peep. Pt is NPO and GT noted clamped. Redness noted around GT site. F/C noted draining yellow urine. Skin alterations noted. Pt has a ALEXI PICC. Bed in lowest position, alarm on, side rails up x2 and padded per seizure precaution, call light within reach. Will continue to monitor. Per ODILIA Schafer, pt noted to have black/green stool and OBS is to be collected. Heparin will be held this morning for possible active bleeding and Dr. Nath informed.
[2019-06-25 08:00] VITALS: BP 136/81
[2019-06-25] MEDS: Heparin 5000 units/ml inj SUBQ SCH (08:31)
[2019-06-25] MEDS: Levofloxacin 750mg tab GT SCH (08:31)
[2019-06-25] MEDS: Pantoprazole Inj IVP SCH ×2 (08:31→21:12)
[2019-06-25] MEDS: Zinc Oxide Oint 2oz TOPIC SCH (08:31)
--- NOTE | 2019-06-25 09:17 | Hematology/Onc Progress Note ---
Assessment/Plan Assessment/Plan ASSESSMENT AND RECOMMENDATIONS # Anemia of chronic disease due to underlying chronic medical issues, multifactorial --> Anemia w/u has been reviewed and c/w acd ferritin 635, tibc 160 --> No evidence of hemolysis is noted, peripheral smear has been reviewed. --> Hgb goal >7. Transfuse prn. --> Epogen or iron at this time is not particularly indicated --> unable to obtain consent, with no family --> r/o hemolysis as well --> hgb 7.5-->8-->8.7-->8.2-->7.8-->8-->7.4 --> ENDOSCOPY SUNDAY potentially--> cancelled given no consent --> spep is negative for bands # Leukocytosis. Likely related to underlying infection versus reactive process. patient with septic shock on admission --> Peripheral has been reviewed--> rouleaux formation on smear --> Medications have been reviewed --> Imaging has been reviewed. CXR shows Suboptimal positioning. No interval consolidation, overt edema or other acute cardiopulmonary findings. --> urine culture with ++uti on cultures provedencia --> Has been started on abx, empiric treatment (ertap/vanc)--> Levo --> wbc is 36-->26k-->9k # Thrombocytopenia decreased since admission --> plt count 190-->123k-->101k-->95k-->93k-->120k --> abx for id # Septic shock poa --> on abx per id --> initially on pressors, now off # Upper GI vomiting bleed in prior admission --> currently appears to have resolved # Trach and PEG. --> chronic # Hyperkalemia --> as per renal # Dvt ppx heparin sq (ON HOLD for potential bleed) The timing of this note does not necessarily reflect the time of the patient was seen. Greatly appreciate consultation. Subjective Allergies: Coded Allergies: NO KNOWN DRUG ALLERGIES (Verified Allergy, Unknown, 09/11/16) Subjective 06/17: blood transfusion completed, on low dose pressors, no bleeding noted 06/19: liya rn, no major events, cbc reviewed, tube feeds ongoing 06/22: no major changes, no bleeding or night sweats, on abx, in sariah 06/23: no f/c, no bleeding, labs noted, in sariah, hgb 8, plt 120k 06/24: labs reviewed, no bleeding, no night sweats, no bleeding 06/25: heparin held for potential bleed, gt is clamped, no events, no fc Objective Objective Current Medications Medications (Trade) Dose Ordered Sig/Wanda Route PRN Reason Start Time Stop Time Status Last Admin Dose Admin Acetaminophen (Tylenol) 650 mg Q4H PRN GT fever (temp>100.5F) 06/19/19 04:00 07/14/19 03:59 Albuterol/ Ipratropium (Albuterol/ Ipratropium) 3 ml Q4H PRN HHN Shortness of Breath 06/21/19 11:00 06/26/19 10:59 Chlorhexidine Gluconate (Jasmin-Hex 2%) 1 applic DAILY@2000 TOPIC 06/20/19 20:00 07/20/19 19:59 06/24/19 20:23 Dextrose 1,000 ml @ 50 mls/hr Q20H IV 06/19/19 03:15 07/18/19 12:59 06/24/19 23:09 Heparin Sodium (Porcine) (Heparin 5000 units/ml) 5,000 units EVERY 12 HOURS SUBQ 06/19/19 09:00 07/14/19 20:59 06/20/19 08:42 Levofloxacin (Levaquin) 750 mg QOD GT 06/23/19 14:00 06/30/19 13:59 06/25/19 08:31 Levothyroxine Sodium (Synthroid) 88 mcg DAILY@0630 GT 06/22/19 06:30 07/20/19 06:29 06/25/19 06:23 Midodrine (Pro-Amatine) 2.5 mg EVERY 8 HOURS GT 06/23/19 22:00 07/17/19 12:59 06/24/19 05:35 Ondansetron HCl (Zofran) 4 mg Q6H PRN IVP Nausea & Vomiting 06/19/19 08:30 07/14/19 14:29 Pantoprazole (Protonix) 40 mg EVERY 12 HOURS IVP 06/21/19 09:00 07/21/19 08:59 06/25/19 08:31 Polyethylene Glycol (Miralax) 17 gm DAILYPRN PRN GT Constipation 06/19/19 14:30 07/14/19 14:29 Sucralfate (Carafate) 1 gm EVERY 8 HOURS GT 06/23/19 22:00 07/21/19 08:59 06/25/19 06:23 Zinc Oxide (Zinc Oxide) 1 applic DAILY TOPIC 06/21/19 09:00 07/21/19 08:59 06/25/19 08:31 Last 24 Hour Vital Signs Date Time Temp Pulse Resp B/P (MAP) Pulse Ox O2 Delivery O2 Flow Rate FiO2 06/25/19 08:00 97.5 70 16 136/81 (99) 100 06/25/19 08:00 35 06/25/19 07:25 71 16 35 06/25/19 05:30 71 16 35 06/25/19 04:00 72 06/25/19 04:00 97.5 71 16 127/77 (94) 99 06/25/19 04:00 35 06/25/19 04:00 Mechanical Ventilator 06/25/19 03:23 70 20 35 06/25/19 01:30 78 17 35 06/25/19 00:00 35 06/25/19 00:00 Mechanical Ventilator 06/25/19 00:00 97.4 75 16 120/65 (83) 99 06/25/19 00:00 83 06/24/19 23:30 79 16 35 06/24/19 21:30 85 17 35 06/24/19 20:00 Mechanical Ventilator 06/24/19 20:00 72 06/24/19 20:00 35 06/24/19 20:00 96.3 60 18 129/77 (94) 98 06/24/19 19:30 69 18 35 06/24/19 17:15 72 17 35 06/24/19 16:00 97.0 69 16 124/65 (84) 95 06/24/19 16:00 Mechanical Ventilator 06/24/19 16:00 35 06/24/19 15:38 69 06/24/19 15:29 68 16 35 06/24/19 13:10 68 06/24/19 12:53 76 18 35 06/24/19 12:39 88 18 98 Mechanical Ventilator 35 06/24/19 12:00 Mechanical Ventilator 06/24/19 12:00 97.3 67 16 141/68 (92) 100 06/24/19 12:00 35 06/24/19 10:59 78 18 35 06/24/19 09:29 84 16 35 06/24/19 08:00 97.3 67 18 131/70 (90) 100 06/24/19 08:00 Mechanical Ventilator 06/24/19 08:00 35 06/24/19 07:48 64 06/24/19 07:05 72 16 35 06/24/19 05:23 66 16 35 06/24/19 04:00 97.6 61 16 132/82 (99) 100 06/24/19 04:00 Mechanical Ventilator 06/24/19 03:36 66 06/24/19 03:03 65 16 35 06/24/19 01:30 80 17 35 06/24/19 01:00 35 06/24/19 00:00 97.7 68 16 139/77 (97) 100 06/24/19 00:00 35 06/24/19 00:00 Mechanical Ventilator 06/23/19 23:33 62 06/23/19 23:30 70 15 35 06/23/19 21:30 74 16 35 06/23/19 20:00 Mechanical Ventilator 06/23/19 20:00 35 06/23/19 20:00 97.7 73 16 147/77 (100) 98 06/23/19 19:30 71 16 35 06/23/19 19:04 69 06/23/19 16:35 89 16 35 06/23/19 16:00 Mechanical Ventilator 06/23/19 16:00 97.6 73 18 145/74 (97) 100 06/23/19 16:00 35 06/23/19 15:14 70 06/23/19 14:32 85 16 35 06/23/19 12:34 85 16 35 06/23/19 12:00 97.3 74 18 123/73 (90) 100 06/23/19 12:00 35 06/23/19 12:00 Mechanical Ventilator 06/23/19 11:43 74 06/23/19 11:22 35 06/23/19 10:33 85 16 35 Intake and Output 06/24/19 06/25/19 18:59 06:59 Intake Total 700 ml 867.5 ml Output Total 750 ml Balance 700 ml 117.5 ml Intake Free Water 100 ml IV Total 550 ml 592.5 ml Tube Feeding 90 ml 175 ml Other 60 ml Output Urine Total 750 ml # Bowel Movements 2 Labs Test 06/23/19 04:00 06/23/19 08:40 06/23/19 09:14 06/23/19 09:18 White Blood Count 10.7 K/UL (4.8-10.8) Red Blood Count 2.89 M/UL (4.70-6.10) Hemoglobin 8.0 G/DL (14.2-18.0) Hematocrit 24.8 % (42.0-52.0) Mean Corpuscular Volume 86 FL (80-99) Mean Corpuscular Hemoglobin 27.8 PG (27.0-31.0) Mean Corpuscular Hemoglobin Concent 32.4 G/DL (32.0-36.0) Red Cell Distribution Width 15.4 % (11.6-14.8) Platelet Count 120 K/UL (150-450) Mean Platelet Volume 8.7 FL (6.5-10.1) Neutrophils (%) (Auto) 73.1 % (45.0-75.0) Lymphocytes (%) (Auto) 10.3 % (20.0-45.0) Monocytes (%) (Auto) 12.4 % (1.0-10.0) Eosinophils (%) (Auto) 3.7 % (0.0-3.0) Basophils (%) (Auto) 0.5 % (0.0-2.0) Prothrombin Time 10.5 SEC (9.30-11.50) Prothromb Time International Ratio 1.0 (0.9-1.1) Activated Partial Thromboplast Time 28 SEC (23-33) Sodium Level 139 MMOL/L (136-145) Potassium Level 4.7 MMOL/L (3.5-5.1) Chloride Level 109 MMOL/L (98-107) Carbon Dioxide Level 27 MMOL/L (21-32) Anion Gap 3 mmol/L (5-15) Blood Urea Nitrogen 28 mg/dL (7-18) Creatinine 1.2 MG/DL (0.55-1.30) Estimat Glomerular Filtration Rate 59.9 mL/min (>60) Glucose Level 83 MG/DL (74-106) Calcium Level 8.5 MG/DL (8.5-10.1) Phosphorus Level 3.2 MG/DL (2.5-4.9) Magnesium Level 1.9 MG/DL (1.8-2.4) Total Bilirubin 0.2 MG/DL (0.2-1.0) Aspartate Amino Transf (AST/SGOT) 52 U/L (15-37) Alanine Aminotransferase (ALT/SGPT) 66 U/L (12-78) Alkaline Phosphatase 187 U/L (46-116) C-Reactive Protein, Quantitative 4.4 mg/dL (0.00-0.90) Pro-B-Type Natriuretic Peptide 9894 pg/mL (0-125) Total Protein 5.8 G/DL (6.4-8.2) Albumin 1.9 G/DL (3.4-5.0) Globulin 3.9 g/dL Albumin/Globulin Ratio 0.5 (1.0-2.7) 0.7 (0.7-1.7) Random Vancomycin Level 15.4 ug/mL Amikacin Level Trough 4.8 ug/mL (4.0-8.0) Arterial Blood pH 7.488 (7.350-7.450) Arterial Blood Partial Pressure CO2 30.9 mmHg (35.0-45.0) Arterial Blood Partial Pressure O2 152.0 mmHg (75.0-100.0) Arterial Blood HCO3 22.9 mmol/L (22.0-26.0) Arterial Blood Oxygen Saturation 98.8 % (95-100) Arterial Blood Base Excess -0.2 (-2-2) Ger Test Positive Total Protein (PEP) 5.1 g/dL (6.0-8.5) Albumin (PEP) 2.1 g/dL (2.9-4.4) Globulin (PEP) 3.0 g/dL (2.2-3.9) Zfelc-4-Lcycobbbz 0.3 g/dL (0.0-0.4) Gfnzi-1-Nsbxuqdzw 0.7 g/dL (0.4-1.0) Beta Globulins 0.8 g/dL (0.7-1.3) Beta Gamma Globulin 1.1 g/dL (0.4-1.8) PEP Abnormal Protein Bands Not observed g/dL (Not Protein Electrophoresis Interpret Comment (.) Hepatitis A IgM Antibody Negative (Negative) Hepatitis B Surface Antigen Negative (Negative) Hepatitis B Core IgM Antibody Negative (Negative) Hepatitis C Antibody 0.1 s/co ratio (0.0-0.9) HIV (1&2) Antibody Rapid Negative (NEGATIVE) Test 06/24/19 03:30 06/25/19 03:30 White Blood Count 9.2 K/UL (4.8-10.8) 7.6 K/UL (4.8-10.8) Red Blood Count 2.77 M/UL (4.70-6.10) 2.66 M/UL (4.70-6.10) Hemoglobin 7.7 G/DL (14.2-18.0) 7.4 G/DL (14.2-18.0) Hematocrit 23.6 % (42.0-52.0) 22.6 % (42.0-52.0) Mean Corpuscular Volume 85 FL (80-99) 85 FL (80-99) Mean Corpuscular Hemoglobin 27.9 PG (27.0-31.0) 27.7 PG (27.0-31.0) Mean Corpuscular Hemoglobin Concent 32.7 G/DL (32.0-36.0) 32.6 G/DL (32.0-36.0) Red Cell Distribution Width 15.5 % (11.6-14.8) 15.5 % (11.6-14.8) Platelet Count 141 K/UL (150-450) 169 K/UL (150-450) Mean Platelet Volume 10.4 FL (6.5-10.1) 9.7 FL (6.5-10.1) Neutrophils (%) (Auto) % (45.0-75.0) % (45.0-75.0) Lymphocytes (%) (Auto) % (20.0-45.0) % (20.0-45.0) Monocytes (%) (Auto) % (1.0-10.0) % (1.0-10.0) Eosinophils (%) (Auto) % (0.0-3.0) % (0.0-3.0) Basophils (%) (Auto) % (0.0-2.0) % (0.0-2.0) Differential Total Cells Counted 100 Neutrophils % (Manual) 72 % (45-75) Lymphocytes % (Manual) 21 % (20-45) Monocytes % (Manual) 6 % (1-10) Eosinophils % (Manual) 1 % (0-3) Basophils % (Manual) 0 % (0-2) Band Neutrophils 0 % (0-8) Platelet Estimate Decreased Platelet Morphology Normal Anisocytosis 1+ Sodium Level 135 MMOL/L (136-145) 132 MMOL/L (136-145) Potassium Level 4.3 MMOL/L (3.5-5.1) 4.4 MMOL/L (3.5-5.1) Chloride Level 104 MMOL/L (98-107) 103 MMOL/L (98-107) Carbon Dioxide Level 27 MMOL/L (21-32) 27 MMOL/L (21-32) Anion Gap 4 mmol/L (5-15) 3 mmol/L (5-15) Blood Urea Nitrogen 22 mg/dL (7-18) 20 mg/dL (7-18) Creatinine 1.0 MG/DL (0.55-1.30) 0.9 MG/DL (0.55-1.30) Estimat Glomerular Filtration Rate > 60 mL/min (>60) > 60 mL/min (>60) Glucose Level 102 MG/DL (74-106) 91 MG/DL (74-106) Calcium Level 8.5 MG/DL (8.5-10.1) 8.5 MG/DL (8.5-10.1) Phosphorus Level 3.2 MG/DL (2.5-4.9) Magnesium Level 1.7 MG/DL (1.8-2.4) Height (Feet): 5 Height (Inches): 8.00 Weight (Pounds): 190 Objective PHYSICAL EXAMINATION: VITAL SIGNS: Have been reviewed HEENT: Trach/vent site ++ CHEST: Bibasilar rales CV: Regular rate and rhythm. GI: Positive bowel sounds. G-tube++ EXTREMITIES: + edema. NEUROLOGICAL: Reflexes equal on both sides. Nikos Nath MD Jun 25, 2019 09:17
--- NOTE | 2019-06-25 09:25 | NUR ---
NURSE NOTES: Dr Viveros currently at the bedside with patient and informed about Magnesium level today- no orders placed and per Dr. Viveros, Dr. Salvador will follow up on labs.
--- NOTE | 2019-06-25 09:33 | General Progress Note ---
Assessment/Plan Problem List: (1) Diabetes ICD Codes: E11.9 - Type 2 diabetes mellitus without complications SNOMED: 87783162 (2) HTN (hypertension) ICD Codes: I10 - Essential (primary) hypertension SNOMED: 02881024 (3) CVA (cerebral vascular accident) ICD Codes: I63.9 - Cerebral infarction, unspecified SNOMED: 116625990 (4) Severe protein-calorie malnutrition ICD Codes: E43 - Unspecified severe protein-calorie malnutrition SNOMED: 603517686 (5) Feeding by G-tube ICD Codes: Z93.1 - Gastrostomy status SNOMED: 511949882, 740268641 (6) Respiratory failure, ujmfk-rx-vlenvei ICD Codes: J96.20 - Respiratory failure, cwakf-hm-jkgyugk SNOMED: 03755252 (7) Anemia ICD Codes: D64.9 - Anemia, unspecified SNOMED: 030692247 (8) Chronic respiratory failure ICD Codes: J96.10 - Chronic respiratory failure, unspecified whether with hypoxia or hypercapnia SNOMED: 39733462 (9) Septic shock ICD Codes: A41.9 - Sepsis, unspecified organism; R65.21 - Severe sepsis with septic shock SNOMED: 06559657 (10) Alzheimer's dementia ICD Codes: G30.9 - Alzheimer's disease, unspecified SNOMED: 68876821 (11) Severe sepsis ICD Codes: A41.9 - Sepsis, unspecified organism; R65.20 - Severe sepsis without septic shock SNOMED: 09900578 (12) Hypothyroidism ICD Codes: E03.9 - Hypothyroidism, unspecified SNOMED: 63701695 Status: unchanged Assessment/Plan: vent abx wean pressor cbc bmp am tranfuse prn ltach eval Subjective Constitutional: Reports: weakness Allergies: Coded Allergies: NO KNOWN DRUG ALLERGIES (Verified Allergy, Unknown, 09/11/16) All Systems: reviewed and negative except above Subjective trach vent altered Objective Last 24 Hour Vital Signs Date Time Temp Pulse Resp B/P (MAP) Pulse Ox O2 Delivery O2 Flow Rate FiO2 06/25/19 08:00 97.5 70 16 136/81 (99) 100 06/25/19 08:00 35 06/25/19 07:25 71 16 35 06/25/19 05:30 71 16 35 06/25/19 04:00 72 06/25/19 04:00 97.5 71 16 127/77 (94) 99 06/25/19 04:00 35 06/25/19 04:00 Mechanical Ventilator 06/25/19 03:23 70 20 35 06/25/19 01:30 78 17 35 06/25/19 00:00 35 06/25/19 00:00 Mechanical Ventilator 06/25/19 00:00 97.4 75 16 120/65 (83) 99 06/25/19 00:00 83 06/24/19 23:30 79 16 35 06/24/19 21:30 85 17 35 06/24/19 20:00 Mechanical Ventilator 06/24/19 20:00 72 06/24/19 20:00 35 06/24/19 20:00 96.3 60 18 129/77 (94) 98 06/24/19 19:30 69 18 35 06/24/19 17:15 72 17 35 06/24/19 16:00 97.0 69 16 124/65 (84) 95 06/24/19 16:00 Mechanical Ventilator 06/24/19 16:00 35 06/24/19 15:38 69 06/24/19 15:29 68 16 35 06/24/19 13:10 68 06/24/19 12:53 76 18 35 06/24/19 12:39 88 18 98 Mechanical Ventilator 35 06/24/19 12:00 Mechanical Ventilator 06/24/19 12:00 97.3 67 16 141/68 (92) 100 06/24/19 12:00 35 06/24/19 10:59 78 18 35 Intake and Output 06/24/19 06/25/19 18:59 06:59 Intake Total 700 ml 867.5 ml Output Total 750 ml Balance 700 ml 117.5 ml Intake Free Water 100 ml IV Total 550 ml 592.5 ml Tube Feeding 90 ml 175 ml Other 60 ml Output Urine Total 750 ml # Bowel Movements 2 Laboratory Tests 06/25/19 03:30: White Blood Count 7.6, Red Blood Count 2.66L, Hemoglobin 7.4L, Hematocrit 22.6L , Mean Corpuscular Volume 85, Mean Corpuscular Hemoglobin 27.7, Mean Corpuscular Hemoglobin Concent 32.6, Red Cell Distribution Width 15.5H, Platelet Count 169, Mean Platelet Volume 9.7, Neutrophils (%) (Auto) , Lymphocytes (%) (Auto) , Monocytes (%) (Auto) , Eosinophils (%) (Auto) , Basophils (%) (Auto) , Neutrophils % (Manual) [Pending], Lymphocytes % (Manual) [Pending], Platelet Estimate [Pending], Platelet Morphology [Pending], Sodium Level 132L, Potassium Level 4.4, Chloride Level 103, Carbon Dioxide Level 27, Anion Gap 3L, Blood Urea Nitrogen 20H, Creatinine 0.9, Estimat Glomerular Filtration Rate > 60, Glucose Level 91, Calcium Level 8.5, Phosphorus Level 3.2 , Magnesium Level 1.7L Height (Feet): 5 Height (Inches): 8.00 Weight (Pounds): 190 General Appearance: lethargic EENT: normal ENT inspection Neck: normal alignment Cardiovascular: normal peripheral pulses, normal rate, regular rhythm Respiratory/Chest: chest wall non-tender, lungs clear, normal breath sounds Abdomen: normal bowel sounds, non tender, soft Extremities: normal inspection Edema: no edema noted Arm (L), no edema noted Arm (R), no edema noted Leg (L), no edema noted Leg (R), no edema noted Pedal (L), no edema noted Pedal (R), no edema noted Generalized Neurologic: motor weakness Skin: normal pigmentation, warm/dry Gato Viveros DO Jun 25, 2019 09:33
--- NOTE | 2019-06-25 10:35 | Pulmonolgy Critical Care Note ---
Critical Care - Asmt/Plan Problems: (1) Septic shock (2) Pyelonephritis (3) Chronic respiratory failure (4) Alzheimer's dementia (5) Severe erosive esophagitis (6) Feeding by G-tube (7) Diabetes (8) CVA (cerebral vascular accident) Assessment/Plan: pt needs blood transfusion. He doesn't have any family members to sign any orders. Respiratory: monitor respiratory rate, adjust FIO2, CXR Cardiac: continue pressors, continue to monitor HR/BP Renal: F/U I&O, keep IV fluid Infectious Disease: check cultures, continue antibiotics Gastrointestinal: continue feedings/current rate Hematologic: monitor H/H Neurologic: PRN Ativan, PRN Morphine Prophylaxis: Protonix, Heparin Time Spent (Minutes): 40 Notes Reviewed: ip litigation paralegal, 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 with: nurses, consultants, mental health case managerbooking manager - Objective Last 24 Hour Vital Signs Date Time Temp Pulse Resp B/P (MAP) Pulse Ox O2 Delivery O2 Flow Rate FiO2 06/25/19 09:02 70 16 35 06/25/19 08:00 97.5 70 16 136/81 (99) 100 06/25/19 08:00 35 06/25/19 08:00 Mechanical Ventilator 06/25/19 08:00 73 06/25/19 07:25 71 16 35 06/25/19 05:30 71 16 35 06/25/19 04:00 72 06/25/19 04:00 97.5 71 16 127/77 (94) 99 06/25/19 04:00 35 06/25/19 04:00 Mechanical Ventilator 06/25/19 03:23 70 20 35 06/25/19 01:30 78 17 35 06/25/19 00:00 35 06/25/19 00:00 Mechanical Ventilator 06/25/19 00:00 97.4 75 16 120/65 (83) 99 06/25/19 00:00 83 06/24/19 23:30 79 16 35 06/24/19 21:30 85 17 35 06/24/19 20:00 Mechanical Ventilator 06/24/19 20:00 72 06/24/19 20:00 35 06/24/19 20:00 96.3 60 18 129/77 (94) 98 06/24/19 19:30 69 18 35 06/24/19 17:15 72 17 35 06/24/19 16:00 97.0 69 16 124/65 (84) 95 06/24/19 16:00 Mechanical Ventilator 06/24/19 16:00 35 06/24/19 15:38 69 06/24/19 15:29 68 16 35 06/24/19 13:10 68 06/24/19 12:53 76 18 35 06/24/19 12:39 88 18 98 Mechanical Ventilator 35 06/24/19 12:00 Mechanical Ventilator 06/24/19 12:00 97.3 67 16 141/68 (92) 100 06/24/19 12:00 35 06/24/19 10:59 78 18 35 Status: awake Condition: critical HEENT: atraumatic, normocephalic Heart: HR/BP stable, HR/BP unstable, regular Abdomen: soft, non-tender, feeding tube Extremities: no C/C/E, edema Critical Care - Subjective ROS Limited/Unobtainable: Yes Condition: critical EKG Rhythm: Sinus Rhythm FI02: 35 Vent Support Breath Rate: 16 Vent Support Mode: AC Vent Tidal Volume: 600 Sputum Amount: Small PEEP: 0.0 PIP: 41 Tube Feeding Amount: 35 I&O: Intake and Output 06/24/19 06/25/19 18:59 06:59 Intake Total 700 ml 867.5 ml Output Total 750 ml Balance 700 ml 117.5 ml Intake Free Water 100 ml IV Total 550 ml 592.5 ml Tube Feeding 90 ml 175 ml Other 60 ml Output Urine Total 750 ml # Bowel Movements 2 Labs: Laboratory Tests Test 06/25/19 03:30 White Blood Count 7.6 K/UL (4.8-10.8) Red Blood Count 2.66 M/UL (4.70-6.10) L Hemoglobin 7.4 G/DL (14.2-18.0) L Hematocrit 22.6 % (42.0-52.0) L Mean Corpuscular Volume 85 FL (80-99) Mean Corpuscular Hemoglobin 27.7 PG (27.0-31.0) Mean Corpuscular Hemoglobin Concent 32.6 G/DL (32.0-36.0) Red Cell Distribution Width 15.5 % (11.6-14.8) H Platelet Count 169 K/UL (150-450) Mean Platelet Volume 9.7 FL (6.5-10.1) Neutrophils (%) (Auto) % (45.0-75.0) Lymphocytes (%) (Auto) % (20.0-45.0) Monocytes (%) (Auto) % (1.0-10.0) Eosinophils (%) (Auto) % (0.0-3.0) Basophils (%) (Auto) % (0.0-2.0) Neutrophils % (Manual) Pending Lymphocytes % (Manual) Pending Platelet Estimate Pending Platelet Morphology Pending Sodium Level 132 MMOL/L (136-145) L Potassium Level 4.4 MMOL/L (3.5-5.1) Chloride Level 103 MMOL/L (98-107) Carbon Dioxide Level 27 MMOL/L (21-32) Anion Gap 3 mmol/L (5-15) L Blood Urea Nitrogen 20 mg/dL (7-18) H Creatinine 0.9 MG/DL (0.55-1.30) Estimat Glomerular Filtration Rate > 60 mL/min (>60) Glucose Level 91 MG/DL (74-106) Calcium Level 8.5 MG/DL (8.5-10.1) Phosphorus Level 3.2 MG/DL (2.5-4.9) Magnesium Level 1.7 MG/DL (1.8-2.4) Huma Vera MD Jun 25, 2019 10:35
--- NOTE | 2019-06-25 11:17 | NUR ---
*-* DISCHARGE PLANNING *-* PATIENT HAS BEEN REFERRED TO: [facility] P: [phone] F: [phone] EFAX: [phone]
[2019-06-25 12:00] VITALS: BP 140/81
--- NOTE | 2019-06-25 12:19 | Infectious Diseases Prog Note ---
Assessment/Plan Assessment/Plan Mr. Huffman is a 68 yo male with PMHx of of chronic resp failure trach/vent dependant, diffuse ulcerative esophagitis, peptic esophageal stricture, asthma, GERD, Dm2, CVA/TIA w/ hemiplegia, functional quadriplegia, CAD, CHF, ESBL UTI , GIB s/p multiple EGDs in the past, schizoaffective disorder, Dementia, hypothyroidism, malnutrition, non verbal, infected obstuctive ureterolithiasis/ w abscess s/p L NT palced 12/2018, encephalopathy, Alzheimer's disease, multiple admissions, subacute facility resident who was sent to the for hypotension and bradycardia. Septic Shock- likely 2ry to UTI and PNA- off pressors now off perssors now Hx of resistant infections 06/23 CXR; Bilateral right greater than left pleural effusions are again demonstrated. Bilateral interstitial and airspace edema persists, unchanged Urine Cx 06/14/19 - >100k ESBL P, stuarti, ESBL P mirabilis (both S Ertapenem , ZOsyn) Blood Cx - NTD CXR show probable pna sp cx PsA (R imipenem, I levaquin), S. maltophila (S bactrim, levaquin) GT leakage with cellulitis -wound cx MDR/CRE K.pna, MDR PsA (colonizers) Leukocytosis; SP Hypothermia; SP Chronic resp failure trach/vent dependant asthma Dm2 CVA/TIA w/ hemiplegia Functional quadriplegia CAD CHF GIB s/p multiple EGDs in the past Schizoaffective disorder Dementia Hypothyroidism Non verbal Alzheimer's disease PLAN: -Cont PO Levaquin #3/5 for S. maltophila -06/24 SP IV Amikacin #10 -06/23 SP Ertapenem #9 and IV Vancomycin #9 -10/ SP PO Vancomycin #3 -10/ SP Flagyl #2 - monitor CBC and Temps -wound care per hospital protocol -GI f/u Thank you for this consult. [facility] will continue to follow the patient with you during this hospitalization. Subjective Allergies: Coded Allergies: NO KNOWN DRUG ALLERGIES (Verified Allergy, Unknown, 09/11/16) Subjective afebrile no leukocytosis Objective Vital Signs Last 24 Hour Vital Signs Date Time Temp Pulse Resp B/P (MAP) Pulse Ox O2 Delivery O2 Flow Rate FiO2 06/25/19 11:01 69 16 35 06/25/19 09:02 70 16 35 06/25/19 08:00 97.5 70 16 136/81 (99) 100 06/25/19 08:00 35 06/25/19 08:00 Mechanical Ventilator 06/25/19 08:00 73 06/25/19 07:25 71 16 35 06/25/19 05:30 71 16 35 06/25/19 04:00 72 06/25/19 04:00 97.5 71 16 127/77 (94) 99 06/25/19 04:00 35 06/25/19 04:00 Mechanical Ventilator 06/25/19 03:23 70 20 35 06/25/19 01:30 78 17 35 06/25/19 00:00 35 06/25/19 00:00 Mechanical Ventilator 06/25/19 00:00 97.4 75 16 120/65 (83) 99 06/25/19 00:00 83 06/24/19 23:30 79 16 35 06/24/19 21:30 85 17 35 06/24/19 20:00 Mechanical Ventilator 06/24/19 20:00 72 06/24/19 20:00 35 06/24/19 20:00 96.3 60 18 129/77 (94) 98 06/24/19 19:30 69 18 35 06/24/19 17:15 72 17 35 06/24/19 16:00 97.0 69 16 124/65 (84) 95 06/24/19 16:00 Mechanical Ventilator 06/24/19 16:00 35 06/24/19 15:38 69 06/24/19 15:29 68 16 35 06/24/19 13:10 68 06/24/19 12:53 76 18 35 06/24/19 12:39 88 18 98 Mechanical Ventilator 35 Height (Feet): 5 Height (Inches): 8.00 Weight (Pounds): 190 Objective Gen: On vent in IVU HEENT: NCAT, MMM, PERRL, No Oral lesion, no scleral icterus NECK: supple, No LAD, No JVD, Trached LUNGS: Coarse B/L, No W/C CARDS: RRR, S1, S2, No M/R/G, ABD: Soft, NT, ND, No R/G, + BS, No HSM, No Masses, PEG : Deferred Ext: C/C/E, Pulses 2+ B/L (DP, Rad): NEURO: A/O x 0, no following SKIN: Warm/dry, No rashes Laboratory Tests Test 06/25/19 03:30 White Blood Count 7.6 K/UL (4.8-10.8) Red Blood Count 2.66 M/UL (4.70-6.10) L Hemoglobin 7.4 G/DL (14.2-18.0) L Hematocrit 22.6 % (42.0-52.0) L Mean Corpuscular Volume 85 FL (80-99) Mean Corpuscular Hemoglobin 27.7 PG (27.0-31.0) Mean Corpuscular Hemoglobin Concent 32.6 G/DL (32.0-36.0) Red Cell Distribution Width 15.5 % (11.6-14.8) H Platelet Count 169 K/UL (150-450) Mean Platelet Volume 9.7 FL (6.5-10.1) Neutrophils (%) (Auto) % (45.0-75.0) Lymphocytes (%) (Auto) % (20.0-45.0) Monocytes (%) (Auto) % (1.0-10.0) Eosinophils (%) (Auto) % (0.0-3.0) Basophils (%) (Auto) % (0.0-2.0) Differential Total Cells Counted 100 Neutrophils % (Manual) 74 % (45-75) Lymphocytes % (Manual) 12 % (20-45) L Monocytes % (Manual) 12 % (1-10) H Eosinophils % (Manual) 2 % (0-3) Basophils % (Manual) 0 % (0-2) Band Neutrophils 0 % (0-8) Platelet Estimate Adequate Platelet Morphology Normal Hypochromasia 3+ Anisocytosis 1+ Spherocytes 1+ Sodium Level 132 MMOL/L (136-145) L Potassium Level 4.4 MMOL/L (3.5-5.1) Chloride Level 103 MMOL/L (98-107) Carbon Dioxide Level 27 MMOL/L (21-32) Anion Gap 3 mmol/L (5-15) L Blood Urea Nitrogen 20 mg/dL (7-18) H Creatinine 0.9 MG/DL (0.55-1.30) Estimat Glomerular Filtration Rate > 60 mL/min (>60) Glucose Level 91 MG/DL (74-106) Calcium Level 8.5 MG/DL (8.5-10.1) Phosphorus Level 3.2 MG/DL (2.5-4.9) Magnesium Level 1.7 MG/DL (1.8-2.4) L Current Medications Medications (Trade) Dose Ordered Sig/Wanda Route PRN Reason Start Time Stop Time Status Last Admin Dose Admin Acetaminophen (Tylenol) 650 mg Q4H PRN GT fever (temp>100.5F) 06/19/19 04:00 07/14/19 03:59 Albuterol/ Ipratropium (Albuterol/ Ipratropium) 3 ml Q4H PRN HHN Shortness of Breath 06/21/19 11:00 06/26/19 10:59 Chlorhexidine Gluconate (Jasmin-Hex 2%) 1 applic DAILY@2000 TOPIC 06/20/19 20:00 07/20/19 19:59 06/24/19 20:23 Dextrose 1,000 ml @ 50 mls/hr Q20H IV 06/19/19 03:15 07/18/19 12:59 06/24/19 23:09 Levofloxacin (Levaquin) 750 mg QOD GT 06/23/19 14:00 06/30/19 13:59 06/25/19 08:31 Levothyroxine Sodium (Synthroid) 88 mcg DAILY@0630 GT 06/22/19 06:30 07/20/19 06:29 06/25/19 06:23 Midodrine (Pro-Amatine) 2.5 mg EVERY 8 HOURS GT 06/23/19 22:00 07/17/19 12:59 06/24/19 05:35 Ondansetron HCl (Zofran) 4 mg Q6H PRN IVP Nausea & Vomiting 06/19/19 08:30 07/14/19 14:29 Pantoprazole (Protonix) 40 mg EVERY 12 HOURS IVP 06/21/19 09:00 07/21/19 08:59 06/25/19 08:31 Polyethylene Glycol (Miralax) 17 gm DAILYPRN PRN GT Constipation 06/19/19 14:30 07/14/19 14:29 Sucralfate (Carafate) 1 gm EVERY 8 HOURS GT 06/23/19 22:00 07/21/19 08:59 06/25/19 06:23 Zinc Oxide (Zinc Oxide) 1 applic DAILY TOPIC 06/21/19 09:00 07/21/19 08:59 06/25/19 08:31 Lisy Lai M.D. Jun 25, 2019 12:19
--- NOTE | 2019-06-25 13:09 | Nephrology Progress Note ---
Assessment/Plan Problem List: (1) Septic shock (2) Hypothyroidism (3) Upper GI bleed (4) Respiratory failure, [id number] (5) Anemia Assessment Sepsis Shock on pressors GI Bleed Low Na and high K UTI HypoThyroidism Tracheostomy dependence Respiratory failure, [id number] Alzheimer's Feeding by G-tube Plan consider transfusion off pressors- On Midodrine On GT feeding On Reglan fluid challenge as needed adjust IV fluids transfuse as needed Monitor lytes and renal parametrs urine studies per orders Subjective ROS Limited/Unobtainable: Yes Objective Objective Last 24 Hour Vital Signs Date Time Temp Pulse Resp B/P (MAP) Pulse Ox O2 Delivery O2 Flow Rate FiO2 06/25/19 12:00 73 06/25/19 12:00 Mechanical Ventilator 06/25/19 12:00 35 06/25/19 12:00 97.4 63 16 140/81 (100) 100 06/25/19 11:01 69 16 35 06/25/19 09:02 70 16 35 06/25/19 08:00 97.5 70 16 136/81 (99) 100 06/25/19 08:00 35 06/25/19 08:00 Mechanical Ventilator 06/25/19 08:00 73 06/25/19 07:25 71 16 35 06/25/19 05:30 71 16 35 06/25/19 04:00 72 06/25/19 04:00 97.5 71 16 127/77 (94) 99 06/25/19 04:00 35 06/25/19 04:00 Mechanical Ventilator 06/25/19 03:23 70 20 35 06/25/19 01:30 78 17 35 06/25/19 00:00 35 06/25/19 00:00 Mechanical Ventilator 06/25/19 00:00 97.4 75 16 120/65 (83) 99 06/25/19 00:00 83 06/24/19 23:30 79 16 35 06/24/19 21:30 85 17 35 06/24/19 20:00 Mechanical Ventilator 06/24/19 20:00 72 06/24/19 20:00 35 06/24/19 20:00 96.3 60 18 129/77 (94) 98 06/24/19 19:30 69 18 35 06/24/19 17:15 72 17 35 06/24/19 16:00 97.0 69 16 124/65 (84) 95 06/24/19 16:00 Mechanical Ventilator 06/24/19 16:00 35 06/24/19 15:38 69 06/24/19 15:29 68 16 35 06/24/19 13:10 68 Intake and Output 06/24/19 06/25/19 19:00 07:00 Intake Total 785 ml 832.5 ml Output Total 750 ml Balance 785 ml 82.5 ml Intake Free Water 100 ml IV Total 600 ml 592.5 ml Tube Feeding 125 ml 140 ml Other 60 ml Output Urine Total 750 ml # Bowel Movements 2 Laboratory Tests 06/25/19 03:30: White Blood Count 7.6, Red Blood Count 2.66L, Hemoglobin 7.4L, Hematocrit 22.6L , Mean Corpuscular Volume 85, Mean Corpuscular Hemoglobin 27.7, Mean Corpuscular Hemoglobin Concent 32.6, Red Cell Distribution Width 15.5H, Platelet Count 169, Mean Platelet Volume 9.7, Neutrophils (%) (Auto) , Lymphocytes (%) (Auto) , Monocytes (%) (Auto) , Eosinophils (%) (Auto) , Basophils (%) (Auto) , Differential Total Cells Counted 100, Neutrophils % ( Manual) 74, Lymphocytes % (Manual) 12L, Monocytes % (Manual) 12H, Eosinophils % (Manual) 2, Basophils % (Manual) 0, Band Neutrophils 0, Platelet Estimate Adequate, Platelet Morphology Normal, Hypochromasia 3+, Anisocytosis 1+, Spherocytes 1+, Sodium Level 132L, Potassium Level 4.4, Chloride Level 103, Carbon Dioxide Level 27, Anion Gap 3L, Blood Urea Nitrogen 20H, Creatinine 0.9, Estimat Glomerular Filtration Rate > 60, Glucose Level 91, Calcium Level 8.5, Phosphorus Level 3.2, Magnesium Level 1.7L Height (Feet): 5 Height (Inches): 8.00 Weight (Pounds): 190 Cardiovascular: normal rate Respiratory/Chest: decreased breath sounds Abdomen: distended Sav Salvador MD Jun 25, 2019 13:09
--- NOTE | 2019-06-25 13:31 | GI Progress Note ---
Assessment/Plan Problems: (1) Severe sepsis ICD Codes: A41.9 - Sepsis, unspecified organism; R65.20 - Severe sepsis without septic shock SNOMED: 08803952 (2) GT SITE LEAKING (3) Alzheimer's dementia ICD Codes: G30.9 - Alzheimer's disease, unspecified SNOMED: 92217129 (4) Upper GI bleed ICD Codes: K92.2 - Upper gastrointestinal hemorrhage SNOMED: 68201148 (5) Severe erosive esophagitis (6) Malfunction of gastrostomy tube ICD Codes: K94.23 - Gastrostomy malfunction SNOMED: 629204006 (7) Anemia ICD Codes: D64.9 - Anemia, unspecified SNOMED: 519991109 Status: unchanged Status Narrative Discussed with Dr. Wilson Assessment/Plan EGD scheduled tomorrow, MD to consent. N.p.o. at midnight. Hold all blood thinners tonight. GT changed at the bedside to 20 Fr. protonix 40 mg Q12 Carafate fu CBC, stable H&H We will follow with additional recommendations postprocedure post The patient was seen and examined at bedside and all new and available data was reviewed in the patients chart. I agree with the above findings, impression and plan. (Patient seen earlier today. Signature stamp does not reflect patient encounter time.). - Vitaliy Wilson MD Subjective Subjective limited Objective Last 24 Hour Vital Signs Date Time Temp Pulse Resp B/P (MAP) Pulse Ox O2 Delivery O2 Flow Rate FiO2 06/25/19 12:00 73 06/25/19 12:00 Mechanical Ventilator 06/25/19 12:00 35 06/25/19 12:00 97.4 63 16 140/81 (100) 100 06/25/19 11:01 69 16 35 06/25/19 09:02 70 16 35 06/25/19 08:00 97.5 70 16 136/81 (99) 100 06/25/19 08:00 35 06/25/19 08:00 Mechanical Ventilator 06/25/19 08:00 73 06/25/19 07:25 71 16 35 06/25/19 05:30 71 16 35 06/25/19 04:00 72 06/25/19 04:00 97.5 71 16 127/77 (94) 99 06/25/19 04:00 35 06/25/19 04:00 Mechanical Ventilator 06/25/19 03:23 70 20 35 06/25/19 01:30 78 17 35 06/25/19 00:00 35 06/25/19 00:00 Mechanical Ventilator 06/25/19 00:00 97.4 75 16 120/65 (83) 99 06/25/19 00:00 83 06/24/19 23:30 79 16 35 06/24/19 21:30 85 17 35 06/24/19 20:00 Mechanical Ventilator 06/24/19 20:00 72 06/24/19 20:00 35 06/24/19 20:00 96.3 60 18 129/77 (94) 98 06/24/19 19:30 69 18 35 06/24/19 17:15 72 17 35 06/24/19 16:00 97.0 69 16 124/65 (84) 95 06/24/19 16:00 Mechanical Ventilator 06/24/19 16:00 35 06/24/19 15:38 69 06/24/19 15:29 68 16 35 Intake and Output 06/24/19 06/25/19 19:00 07:00 Intake Total 785 ml 832.5 ml Output Total 750 ml Balance 785 ml 82.5 ml Intake Free Water 100 ml IV Total 600 ml 592.5 ml Tube Feeding 125 ml 140 ml Other 60 ml Output Urine Total 750 ml # Bowel Movements 2 Laboratory Tests Test 06/25/19 03:30 White Blood Count 7.6 K/UL (4.8-10.8) Red Blood Count 2.66 M/UL (4.70-6.10) L Hemoglobin 7.4 G/DL (14.2-18.0) L Hematocrit 22.6 % (42.0-52.0) L Mean Corpuscular Volume 85 FL (80-99) Mean Corpuscular Hemoglobin 27.7 PG (27.0-31.0) Mean Corpuscular Hemoglobin Concent 32.6 G/DL (32.0-36.0) Red Cell Distribution Width 15.5 % (11.6-14.8) H Platelet Count 169 K/UL (150-450) Mean Platelet Volume 9.7 FL (6.5-10.1) Neutrophils (%) (Auto) % (45.0-75.0) Lymphocytes (%) (Auto) % (20.0-45.0) Monocytes (%) (Auto) % (1.0-10.0) Eosinophils (%) (Auto) % (0.0-3.0) Basophils (%) (Auto) % (0.0-2.0) Differential Total Cells Counted 100 Neutrophils % (Manual) 74 % (45-75) Lymphocytes % (Manual) 12 % (20-45) L Monocytes % (Manual) 12 % (1-10) H Eosinophils % (Manual) 2 % (0-3) Basophils % (Manual) 0 % (0-2) Band Neutrophils 0 % (0-8) Platelet Estimate Adequate Platelet Morphology Normal Hypochromasia 3+ Anisocytosis 1+ Spherocytes 1+ Sodium Level 132 MMOL/L (136-145) L Potassium Level 4.4 MMOL/L (3.5-5.1) Chloride Level 103 MMOL/L (98-107) Carbon Dioxide Level 27 MMOL/L (21-32) Anion Gap 3 mmol/L (5-15) L Blood Urea Nitrogen 20 mg/dL (7-18) H Creatinine 0.9 MG/DL (0.55-1.30) Estimat Glomerular Filtration Rate > 60 mL/min (>60) Glucose Level 91 MG/DL (74-106) Calcium Level 8.5 MG/DL (8.5-10.1) Phosphorus Level 3.2 MG/DL (2.5-4.9) Magnesium Level 1.7 MG/DL (1.8-2.4) L Height (Feet): 5 Height (Inches): 8.00 Weight (Pounds): 190 General Appearance: alert Cardiovascular: normal rate Respiratory/Chest: other - mech vent Abdominal Exam: soft Emanuel Quesada NUTRITIONALIST Jun 25, 2019 13:31
--- NOTE | 2019-06-25 14:06 | NUR ---
NURSE NOTES: Late Entry (correct time 1300): Spoke with Dr. Viveros regarding pt's brief episode of bradycardia (44bpm) lasting for less than one minute. Informed Dr. Viveros that there is no fish cleaner machine tender on the case as well. No new orders received.
--- NOTE | 2019-06-25 14:12 | NUR ---
NURSE NOTES: Per Jim, keep pt NPO until procedure tomorrow.
--- NOTE | 2019-06-25 14:38 | Surgery Progress Note ---
Surgery Progress Note Subjective Additional Comments planned EGD tomorrow as per GI exam stable and unchanged labs noted Objective Last 24 Hour Vital Signs Date Time Temp Pulse Resp B/P (MAP) Pulse Ox O2 Delivery O2 Flow Rate FiO2 06/25/19 13:05 69 16 35 06/25/19 12:00 73 06/25/19 12:00 Mechanical Ventilator 06/25/19 12:00 35 06/25/19 12:00 97.4 63 16 140/81 (100) 100 06/25/19 11:01 69 16 35 06/25/19 09:02 70 16 35 06/25/19 08:00 97.5 70 16 136/81 (99) 100 06/25/19 08:00 35 06/25/19 08:00 Mechanical Ventilator 06/25/19 08:00 73 06/25/19 07:25 71 16 35 06/25/19 05:30 71 16 35 06/25/19 04:00 72 06/25/19 04:00 97.5 71 16 127/77 (94) 99 06/25/19 04:00 35 06/25/19 04:00 Mechanical Ventilator 06/25/19 03:23 70 20 35 06/25/19 01:30 78 17 35 06/25/19 00:00 35 06/25/19 00:00 Mechanical Ventilator 06/25/19 00:00 97.4 75 16 120/65 (83) 99 06/25/19 00:00 83 06/24/19 23:30 79 16 35 06/24/19 21:30 85 17 35 06/24/19 20:00 Mechanical Ventilator 06/24/19 20:00 72 06/24/19 20:00 35 06/24/19 20:00 96.3 60 18 129/77 (94) 98 06/24/19 19:30 69 18 35 06/24/19 17:15 72 17 35 06/24/19 16:00 97.0 69 16 124/65 (84) 95 06/24/19 16:00 Mechanical Ventilator 06/24/19 16:00 35 06/24/19 15:38 69 06/24/19 15:29 68 16 35 I&O Intake and Output 06/24/19 06/25/19 19:00 07:00 Intake Total 785 ml 832.5 ml Output Total 750 ml Balance 785 ml 82.5 ml Intake Free Water 100 ml IV Total 600 ml 592.5 ml Tube Feeding 125 ml 140 ml Other 60 ml Output Urine Total 750 ml # Bowel Movements 2 Dressing: saturated Wound: clean Cardiovascular: RSR Respiratory: clear Abdomen: soft, non-tender, present bowel sounds Extremities: no cyanosis, other Laboratory Tests Test 06/25/19 03:30 White Blood Count 7.6 K/UL (4.8-10.8) Red Blood Count 2.66 M/UL (4.70-6.10) L Hemoglobin 7.4 G/DL (14.2-18.0) L Hematocrit 22.6 % (42.0-52.0) L Mean Corpuscular Volume 85 FL (80-99) Mean Corpuscular Hemoglobin 27.7 PG (27.0-31.0) Mean Corpuscular Hemoglobin Concent 32.6 G/DL (32.0-36.0) Red Cell Distribution Width 15.5 % (11.6-14.8) H Platelet Count 169 K/UL (150-450) Mean Platelet Volume 9.7 FL (6.5-10.1) Neutrophils (%) (Auto) % (45.0-75.0) Lymphocytes (%) (Auto) % (20.0-45.0) Monocytes (%) (Auto) % (1.0-10.0) Eosinophils (%) (Auto) % (0.0-3.0) Basophils (%) (Auto) % (0.0-2.0) Differential Total Cells Counted 100 Neutrophils % (Manual) 74 % (45-75) Lymphocytes % (Manual) 12 % (20-45) L Monocytes % (Manual) 12 % (1-10) H Eosinophils % (Manual) 2 % (0-3) Basophils % (Manual) 0 % (0-2) Band Neutrophils 0 % (0-8) Platelet Estimate Adequate Platelet Morphology Normal Hypochromasia 3+ Anisocytosis 1+ Spherocytes 1+ Sodium Level 132 MMOL/L (136-145) L Potassium Level 4.4 MMOL/L (3.5-5.1) Chloride Level 103 MMOL/L (98-107) Carbon Dioxide Level 27 MMOL/L (21-32) Anion Gap 3 mmol/L (5-15) L Blood Urea Nitrogen 20 mg/dL (7-18) H Creatinine 0.9 MG/DL (0.55-1.30) Estimat Glomerular Filtration Rate > 60 mL/min (>60) Glucose Level 91 MG/DL (74-106) Calcium Level 8.5 MG/DL (8.5-10.1) Phosphorus Level 3.2 MG/DL (2.5-4.9) Magnesium Level 1.7 MG/DL (1.8-2.4) L Plan Problems: (1) Severe protein-calorie malnutrition Assessment & Plan: DAILY ESTIMATED NEEDS: Needs based on Critical care, underweight TF [employer] 56.8 30-35 kcals/kg 9626-3168 total kcals 1.25-2 g protein/kg 71-113.6 g total protein 25-30 mL/kg 2227-9483 total fluid mLs NUTRITION DIAGNOSIS: * Increased kcal/prot intake needs R/T sepsis and underweight status as evidenced by pt adm w/ critically elev WBC (35.7*), febrile, @68% Mckean Body Weight. * Swallowing difficulty R/T respiratory status as evidenced by pt vent dep via trach, PEG dep. ENTERAL NUTRITION RECOMMENDATIONS: Nepro @45mL/hr x 22hr to provide 990mL, 1782kcal, 80g pro, 720mL free water -When Hemodynamically stable, start Nepro @ 15mL/hr for 6 hrs. -Advance as tolerated 10mL q 4-6 hrs to goal. -TF @goal meets 100% est needs. -Flush per MD/ HOB >30 degrees. ADDITIONAL RECOMMENDATIONS: * Calibrated bedscale weight for accurate CBW + weekly wt monitoring * Per SNF: Ht of 6'1", Wt 125# (05/2019) * TF recs as above when medically stable * Monitor for cont'd need of renal formula (K 5.5) * Monitor lytes and hydration status. (2) Feeding by G-tube Assessment & Plan: g tube changed planned endoscopy tomorrow unable to do today because of consent (3) Respiratory failure, [id number] (4) Septic shock Assessment & Plan: hypotensive - improved tachycardic - improved labs as above improving PICC line placed And central line removed will follow with recs thank you (5) Severe sepsis (6) GT SITE LEAKING Assessment & Plan: Patient identified worsening G-tube site leakage and cellulitis. This has been noted on prior admissions which is cared for. Plan for placement as below Pt presents with contractures. Skin erosions to abdominal region, and multiple areas of non-blanching erythema. Skin erosion noted to abdomen extending around GT and mostly to L abdominal area, skin is grossly red and excoriated. Furuncle noted to L flank oozing moderate amt purulent exudate. Non-blanchable erythema without fluctuance noted to L lateral malleolus (L) 1.5cm x (W)3cm. Non-blanchable erythema without fluctuance noted to lateral L foot (L)1cm x (W) 1cm. Non-blanchable erythema noted to sacral cleft. No other skin concerns noted. Tx.Plan: Apply Zinc Oxide Paste to GT site and excoriated areas on abd daily and prn. Apply Betadine to Boil L flank Daily .Cover with Optifoam drsg. Change daily and prn. Apply Moisture Barrier Paste to sacrum. Cover with Optifoam drsg. Change every 3 days and prn. Apply Cavilon to Non-blanchable areas L foot and bilat heels. Cover each site with Optifoam drsg. Change every 7 days and prn. Reposition at least every 2hours or as tolerated. Place pillow between knees. Off-load heels with pillow. APM/RENO Mattress overlay. Quirino Bernard Jun 25, 2019 14:38
[2019-06-25 16:00] VITALS: BP 141/95
--- NOTE | 2019-06-25 16:45 | NUR ---
NURSE NOTES: vital signs noted. 1 unit PRBC transfusion initiated.
--- NOTE | 2019-06-25 18:26 | NUR ---
Late Entry (correct time 1600). Pt placed on angelica hugger. Temp noted to be 96.4 F axillary. Will continue to monitor.
--- NOTE | 2019-06-25 19:10 | NUR ---
NURSE NOTES: Received patient from DOILIA Monson. Will continue plan of care.
--- NOTE | 2019-06-25 19:15 | NUR ---
NURSE NOTES: 1 unit PRBC transfusion complete. No signs of transfusion reaction noted. VS noted.
--- NOTE | 2019-06-25 19:24 | NUR ---
HAND-OFF: Report given to ODILIA Miranda. Pt in stable condition.
[2019-06-25 20:00] VITALS: BP 137/80
--- NOTE | 2019-06-25 20:23 | Cardiology Progress Note ---
Assessment/Plan Assessment/Plan mobitz 1 2nd degree avb short lived may related to vent no indication for pacing avoid neg chronotropic agents [id number] Objective Last 24 Hour Vital Signs Date Time Temp Pulse Resp B/P (MAP) Pulse Ox O2 Delivery O2 Flow Rate FiO2 06/25/19 20:00 35 06/25/19 20:00 Mechanical Ventilator 06/25/19 18:56 70 17 35 06/25/19 17:16 67 16 35 06/25/19 16:00 Mechanical Ventilator 06/25/19 16:00 67 06/25/19 16:00 35 06/25/19 16:00 96.4 62 16 141/95 (110) 100 06/25/19 15:08 72 17 35 06/25/19 13:05 69 16 35 06/25/19 12:00 73 06/25/19 12:00 Mechanical Ventilator 06/25/19 12:00 35 06/25/19 12:00 97.4 63 16 140/81 (100) 100 06/25/19 11:01 69 16 35 06/25/19 09:02 70 16 35 06/25/19 08:00 97.5 70 16 136/81 (99) 100 06/25/19 08:00 35 06/25/19 08:00 Mechanical Ventilator 06/25/19 08:00 73 06/25/19 07:25 71 16 35 06/25/19 05:30 71 16 35 06/25/19 04:00 72 06/25/19 04:00 97.5 71 16 127/77 (94) 99 06/25/19 04:00 35 06/25/19 04:00 Mechanical Ventilator 06/25/19 03:23 70 20 35 06/25/19 01:30 78 17 35 06/25/19 00:00 35 06/25/19 00:00 Mechanical Ventilator 06/25/19 00:00 97.4 75 16 120/65 (83) 99 06/25/19 00:00 83 06/24/19 23:30 79 16 35 06/24/19 21:30 85 17 35 Intake and Output 06/24/19 06/25/19 19:00 07:00 Intake Total 785 ml 832.5 ml Output Total 750 ml Balance 785 ml 82.5 ml Intake Free Water 100 ml IV Total 600 ml 592.5 ml Tube Feeding 125 ml 140 ml Other 60 ml Output Urine Total 750 ml # Bowel Movements 2 Laboratory Tests Test 06/25/19 03:30 White Blood Count 7.6 K/UL (4.8-10.8) Red Blood Count 2.66 M/UL (4.70-6.10) L Hemoglobin 7.4 G/DL (14.2-18.0) L Hematocrit 22.6 % (42.0-52.0) L Mean Corpuscular Volume 85 FL (80-99) Mean Corpuscular Hemoglobin 27.7 PG (27.0-31.0) Mean Corpuscular Hemoglobin Concent 32.6 G/DL (32.0-36.0) Red Cell Distribution Width 15.5 % (11.6-14.8) H Platelet Count 169 K/UL (150-450) Mean Platelet Volume 9.7 FL (6.5-10.1) Neutrophils (%) (Auto) % (45.0-75.0) Lymphocytes (%) (Auto) % (20.0-45.0) Monocytes (%) (Auto) % (1.0-10.0) Eosinophils (%) (Auto) % (0.0-3.0) Basophils (%) (Auto) % (0.0-2.0) Differential Total Cells Counted 100 Neutrophils % (Manual) 74 % (45-75) Lymphocytes % (Manual) 12 % (20-45) L Monocytes % (Manual) 12 % (1-10) H Eosinophils % (Manual) 2 % (0-3) Basophils % (Manual) 0 % (0-2) Band Neutrophils 0 % (0-8) Platelet Estimate Adequate Platelet Morphology Normal Hypochromasia 3+ Anisocytosis 1+ Spherocytes 1+ Sodium Level 132 MMOL/L (136-145) L Potassium Level 4.4 MMOL/L (3.5-5.1) Chloride Level 103 MMOL/L (98-107) Carbon Dioxide Level 27 MMOL/L (21-32) Anion Gap 3 mmol/L (5-15) L Blood Urea Nitrogen 20 mg/dL (7-18) H Creatinine 0.9 MG/DL (0.55-1.30) Estimat Glomerular Filtration Rate > 60 mL/min (>60) Glucose Level 91 MG/DL (74-106) Calcium Level 8.5 MG/DL (8.5-10.1) Phosphorus Level 3.2 MG/DL (2.5-4.9) Magnesium Level 1.7 MG/DL (1.8-2.4) Javier Alfaro MD Jun 25, 2019 20:23
[2019-06-25] MEDS: Dyna-Hex 2% Top Sol 2oz TOPIC SCH (21:11)
--- NOTE | 2019-06-25 21:45 | Consultation ---
DATE OF CONSULTATION: 06/25/2019 CARDIOLOGY CONSULTATION CONSULTING PHYSICIAN: Javier Ponce M.D. REFERRING PHYSICIAN: Gato Viveros D.O. REASON FOR REFERRAL: Bradycardia. HISTORY OF PRESENT ILLNESS: This is an elderly gentleman who is not able to provide any meaningful history whatsoever. The patient is on a chronic ventilator therapy, contracted. I was called to see him because of an episode of bradycardia that started today. The patient again is not able to provide any meaningful history whatsoever. PAST MEDICAL HISTORY: According to convalescent facility, he has history of coronary artery disease, history of tracheostomy-dependent respiratory status, history heart failure, cerebrovascular accident, chronic respiratory failure, diabetes mellitus type 2, protein-calorie malnutrition, gastroesophageal reflux disease with esophagitis, gastritis and with bleeding, history of chronic bronchitis, dementia, chronic peptic ulcer disease, epilepsy, essential hypertension, hypothyroidism, encephalopathy as well. ALLERGIES: There is no known drug allergies. SOCIAL HISTORY: No smoking, drinking, or alcoholic beverages. REVIEW OF SYSTEMS: Unable to obtain. PHYSICAL EXAMINATION: GENERAL: Shows a severely contracted and unresponsive elderly gentleman on a mechanical ventilator. LUNGS: There was minimal wheezes noted inspiratory merritt. CARDIAC: Regular rhythm. No heaves or thrills. ABDOMEN: Soft. EXTREMITIES: Contracted. LABORATORY AND DIAGNOSTIC DATA: White count of 7.6, hemoglobin of 7.4, and platelet count of 169. PH is 7.488, pCO2 of 31, pO2 of 152, and bicarbonate of 23. Sodium is 132, potassium 4.4, chloride 103, bicarb 27, BUN of 20, creatinine 0.9, glucose of 91, magnesium 1.7, phosphorus 3.2. The patient has had a cortisol level of 12.5 done on 06/17/2019. TSH of 5.582 on 06/14/2019. Chest x-ray most recently shows removal of the central venous line. The patient's telemetry data reviewed shows basically sinus rhythm and an episode of what appears to be 2:1 block with heart rate of 44 yesterday and had another one earlier that is consistent with a Mobitz 1 second-degree AV block. The patient's last electrocardiogram was performed on 06/14/2019 at the time he was admitted to the hospital with a heart rate of 44, unfortunately of atrial activity and that is not clear. MEDICATIONS: The patient's medications at this time include DuoNeb, , Synthroid, midodrine, Protonix polyethylene glycol, Carafate, zinc sulfate, heparin subcutaneously, Tylenol, Mag sulfate, and IV fluids. ASSESSMENT AND PLAN: Bradycardia consistent with Mobitz 1 second-degree AV block, possibly vagally induced in a patient on a mechanical ventilator. Really noncommunicative or responsive. He is not on any medications that tend to cause that. It maybe from the ventilation episode that he has developed. This is sudden and brief episode of bradycardia that resolved. Certainly not a candidate indicating the pacemaker implantation at this time. I would probably avoid negative chronotropic agents. Otherwise, no further recommendations or treatment is indicated at this time. Javier Ponce M.D. DR: MARY JOB#: [id number] CC:
--- NOTE | 2019-06-25 23:24 | Diagnostic Imaging Report ---
APPROVED REPORT CPT Code: 93954 Present Symptoms Shortness of breath Comments: Technically difficult study (bilateral contractures of the hip and knee). BILATERAL: Imaging reveals a patent deep venous system bilaterally. There is no evidence of thrombus within the femoral, popliteal or tibial segments. The greater saphenous veins are also within normal limits. Doppler indicates normal spontaneous flow within these segments.
[2019-06-26] VITALS: BP 126/76
[2019-06-26 02:18] LABS: BASOPHILS % (AUTO) 0.8 % (0.0-2.0); EOSINOPHILS % (AUTO) 1.8 % (0.0-3.0); HEMATOCRIT 26.5 % (42.0-52.0); HEMOGLOBIN 8.8 G/DL (14.2-18.0); LYMPHOCYTES % (AUTO) 10.9 % (20.0-45.0); MEAN CORPUSCULAR VOLUME 84 FL (80-99); MONOCYTES % (AUTO) 11.9 % (1.0-10.0); NEUTROPHILS % (AUTO) 74.7 % (45.0-75.0); PLATELET COUNT 205 K/UL (150-450); RED BLOOD COUNT 3.15 M/UL (4.70-6.10); WHITE BLOOD COUNT 7.9 K/UL (4.8-10.8)
[2019-06-26 02:29] LABS: ANION GAP 4 mmol/L (5-15); BLOOD UREA NITROGEN 16 mg/dL (7-18); CALCIUM 8.4 MG/DL (8.5-10.1); CARBON DIOXIDE 28 MMOL/L (21-32); CHLORIDE 101 MMOL/L (98-107); POTASSIUM 4.6 MMOL/L (3.5-5.1); SODIUM 133 MMOL/L (136-145)
[2019-06-26 04:00] VITALS: BP 125/60
[2019-06-26] MEDS: Sucralfate 1gm tab GT SCH ×3 (05:39→21:26)
--- NOTE | 2019-06-26 06:50 | NUR ---
RESPIRATORY NOTE: Received pt on AC 16 VT 600 35%, no PEEP. Trach is portex cuffed 8. Suction pt with small to moderate thin clear/white secretions, no complications. No respiratory distress noted. [place]ubag and back up trach bedside. Alarms are on and audible. Plugged into red outlet. Will continue to monitor.
--- NOTE | 2019-06-26 07:13 | NUR ---
HAND-OFF: Report given to ODILIA Orozco.
--- NOTE | 2019-06-26 07:15 | NUR ---
NURSE NOTES: Received report from Ruth Washington RN. Observed patient in bed, asleep, opens eyes spontaneously to verbal stimuli. On trach-vent with settings AC 16, TV 600, FiO2 35%, no PEEP per MD's order; no respiratory distress noted. Patient is currently NPO at this time. PICC line on left upper arm with IV fluids running at prescribed rate. Victor catheter noted, intact and patent, draining well to gravity. Safety precautions in place, bed locked, alarmed, and in lowest position, padded side rails up x2, and call light left within reach. No s/s of pain/discomfort at this time. Will continue to monitor and continue with plan of care.
[2019-06-26 08:00] VITALS: BP 124/57
[2019-06-26] MEDS: Pantoprazole Inj IVP SCH ×2 (08:08→21:27)
[2019-06-26] MEDS: Zinc Oxide Oint 2oz TOPIC SCH (08:08)
[2019-06-26] MEDS ORDERED: DiphenhydrAMINE 50mg/ml Inj IVP PRN (08:45)
[2019-06-26] MEDS ORDERED: fentaNYL 100 mcg/2 mL IV PRN (08:45)
[2019-06-26] MEDS ORDERED: Atropine Sulfate 0.4mg/ml inj IVP PRN (08:45)
[2019-06-26] MEDS ORDERED: Midazolam 2mg/2ml Inj IVP PRN (08:45)
--- NOTE | 2019-06-26 08:47 | Anethesia Preoperative Eval ---
Anesthesia Pre-op PMH/ROS General Date of Evaluation: Jun 26, 2019 Time of Evaluation: 08:37 Anesthesiologist: aric ASA Score: ASA 4 Mallampati Score Class I : Soft palate, uvula, fauces, pillars visible Class II: Soft palate, uvula, fauces visible Class III: Soft palate, base of uvula visible Class IV: Only hard plate visible Mallampati Classification: Class III Surgeon: herminia Diagnosis: dysphagia Surgical Procedure: egd Family History: no anesthesia problems Allergies: Coded Allergies: NO KNOWN DRUG ALLERGIES (Verified Allergy, Unknown, 09/11/16) Medications: see eMAR Patient NPO?: Yes Past Medical History Gastrointestinal/Genitourinary: Reports: other - dysphagia Neurologic/Psychiatric: Reports: dementia, CVA, TIA, other - aphasia, seizre disorder Anesthesia Pre-op Phys. Exam Physician Exam Last Vital Signs Date Time Temp Pulse Resp B/P (MAP) Pulse Ox O2 Delivery O2 Flow Rate FiO2 06/26/19 06:50 81 16 35 06/26/19 04:00 Mechanical Ventilator 06/26/19 04:00 98.6 125/60 (81) 99 Constitutional: NAD Neurologic: other - encephalopathic, seizures Cardiovascular: RRR Respiratory: other - tracheostomy Gastrointestinal: other - g-tube Airway Exam Mallampati Score: Class II MO: limited Neck: tracheostomy TMD: 2fb ROM: limited Anesthesia Pre-op A/P Labs Hematology Test 06/26/19 02:00 White Blood Count 7.9 K/UL (4.8-10.8) Red Blood Count 3.15 M/UL (4.70-6.10) L Hemoglobin 8.8 G/DL (14.2-18.0) L Hematocrit 26.5 % (42.0-52.0) L Mean Corpuscular Volume 84 FL (80-99) Mean Corpuscular Hemoglobin 28.1 PG (27.0-31.0) Mean Corpuscular Hemoglobin Concent 33.3 G/DL (32.0-36.0) Red Cell Distribution Width 15.0 % (11.6-14.8) H Platelet Count 205 K/UL (150-450) Mean Platelet Volume 9.2 FL (6.5-10.1) Neutrophils (%) (Auto) 74.7 % (45.0-75.0) Lymphocytes (%) (Auto) 10.9 % (20.0-45.0) L Monocytes (%) (Auto) 11.9 % (1.0-10.0) H Eosinophils (%) (Auto) 1.8 % (0.0-3.0) Basophils (%) (Auto) 0.8 % (0.0-2.0) Coagulation Test 06/26/19 02:00 Prothrombin Time 10.9 SEC (9.30-11.50) Prothromb Time International Ratio 1.0 (0.9-1.1) Activated Partial Thromboplast Time 47 SEC (23-33) H Chemistry Test 06/26/19 02:00 Sodium Level 133 MMOL/L (136-145) L Potassium Level 4.6 MMOL/L (3.5-5.1) Chloride Level 101 MMOL/L (98-107) Carbon Dioxide Level 28 MMOL/L (21-32) Anion Gap 4 mmol/L (5-15) L Blood Urea Nitrogen 16 mg/dL (7-18) Creatinine 1.0 MG/DL (0.55-1.30) Estimat Glomerular Filtration Rate > 60 mL/min (>60) Glucose Level 75 MG/DL (74-106) Calcium Level 8.4 MG/DL (8.5-10.1) L Risk Assessment & Plan Assessment: asa4 Plan: mac Status Change Before Surgery: No Pre-Antibiotics Drug: Karin Arias MD Jun 26, 2019 08:47
--- NOTE | 2019-06-26 10:16 | Pulmonolgy Critical Care Note ---
Critical Care - Asmt/Plan Problems: (1) Septic shock (2) Pyelonephritis (3) Chronic respiratory failure (4) Alzheimer's dementia (5) Severe erosive esophagitis (6) Feeding by G-tube (7) Diabetes (8) CVA (cerebral vascular accident) Assessment/Plan: episode of bradycardia, which resolved spontaneously. 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 - Objective Last 24 Hour Vital Signs Date Time Temp Pulse Resp B/P (MAP) Pulse Ox O2 Delivery O2 Flow Rate FiO2 06/26/19 09:06 94 16 35 06/26/19 08:00 35 06/26/19 08:00 98.8 79 16 124/57 (79) 100 06/26/19 08:00 Mechanical Ventilator 06/26/19 07:40 80 06/26/19 06:50 81 16 35 06/26/19 04:51 84 16 35 06/26/19 04:00 86 06/26/19 04:00 35 06/26/19 04:00 Mechanical Ventilator 06/26/19 04:00 98.6 80 16 125/60 (81) 99 06/26/19 03:15 92 16 35 06/26/19 01:04 83 16 35 06/26/19 00:00 99.1 88 16 126/76 (93) 98 06/26/19 00:00 90 06/26/19 00:00 Mechanical Ventilator 06/25/19 22:40 89 16 35 06/25/19 20:59 81 16 35 06/25/19 20:00 35 06/25/19 20:00 Mechanical Ventilator 06/25/19 20:00 98.7 78 16 137/80 (99) 100 06/25/19 19:38 77 06/25/19 18:56 70 17 35 10/16/19 17:16 67 16 35 06/25/19 16:00 Mechanical Ventilator 06/25/19 16:00 67 06/25/19 16:00 35 06/25/19 16:00 96.4 62 16 141/95 (110) 100 06/25/19 15:08 72 17 35 06/25/19 13:05 69 16 35 06/25/19 12:00 73 06/25/19 12:00 Mechanical Ventilator 06/25/19 12:00 35 06/25/19 12:00 97.4 63 16 140/81 (100) 100 06/25/19 11:01 69 16 35 Status: awake Condition: critical, improving HEENT: atraumatic Neck: full ROM Heart: HR/BP stable, regular Abdomen: soft, active bowel sounds Extremities: no C/C/E, edema Decubiti: location Critical Care - Subjective ROS Limited/Unobtainable: Yes Condition: critical EKG Rhythm: Sinus Rhythm FI02: 35 Vent Support Breath Rate: 16 Vent Support Mode: AC Vent Tidal Volume: 600 Sputum Amount: Small PEEP: 0.0 PIP: 28 Tube Feeding Amount: 35 I&O: Intake and Output 06/25/19 06/26/19 18:59 06:59 Intake Total 537.5 ml 835.73 ml Output Total 900 ml 900 ml Balance -362.5 ml -64.27 ml IV Total 537.5 ml 525.73 ml Blood Product 250 ml Other 60 ml Output Urine Total 900 ml 900 ml CXR: bilateral effusion and infiltrate Labs: Laboratory Tests Test 06/26/19 02:00 White Blood Count 7.9 K/UL (4.8-10.8) Red Blood Count 3.15 M/UL (4.70-6.10) L Hemoglobin 8.8 G/DL (14.2-18.0) L Hematocrit 26.5 % (42.0-52.0) L Mean Corpuscular Volume 84 FL (80-99) Mean Corpuscular Hemoglobin 28.1 PG (27.0-31.0) Mean Corpuscular Hemoglobin Concent 33.3 G/DL (32.0-36.0) Red Cell Distribution Width 15.0 % (11.6-14.8) H Platelet Count 205 K/UL (150-450) Mean Platelet Volume 9.2 FL (6.5-10.1) Neutrophils (%) (Auto) 74.7 % (45.0-75.0) Lymphocytes (%) (Auto) 10.9 % (20.0-45.0) L Monocytes (%) (Auto) 11.9 % (1.0-10.0) H Eosinophils (%) (Auto) 1.8 % (0.0-3.0) Basophils (%) (Auto) 0.8 % (0.0-2.0) Prothrombin Time 10.9 SEC (9.30-11.50) Prothromb Time International Ratio 1.0 (0.9-1.1) Activated Partial Thromboplast Time 47 SEC (23-33) H Sodium Level 133 MMOL/L (136-145) L Potassium Level 4.6 MMOL/L (3.5-5.1) Chloride Level 101 MMOL/L (98-107) Carbon Dioxide Level 28 MMOL/L (21-32) Anion Gap 4 mmol/L (5-15) L Blood Urea Nitrogen 16 mg/dL (7-18) Creatinine 1.0 MG/DL (0.55-1.30) Estimat Glomerular Filtration Rate > 60 mL/min (>60) Glucose Level 75 MG/DL (74-106) Calcium Level 8.4 MG/DL (8.5-10.1) L Huma Keating MD Jun 26, 2019 10:16
--- NOTE | 2019-06-26 10:58 | NUR ---
NURSE NOTES: Spoke with Public Guardian Sarah Oliver over the phone; was informed that they are not able to sign consent for the patient for EGD today. Dr Wilson aware, will sign consent for patient.
--- NOTE | 2019-06-26 10:58 | NUR ---
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 * Swallowing difficulty R/T respiratory status as evidenced by pt vent dep via trach, PEG dep. CURRENT TF: NPO for procedure ENTERAL NUTRITION RECOMMENDATIONS: Osmolite 1.5 @ 55ml/hr x 22 hrs to provide 1210ml, 1815kcal, 76g prot, 922ml free water - S/p EGD, as medically appropriate, resume TF - Hold 1 hr before and after Synthroid med - Flush per MD/ HOB >30 degrees. ADDITIONAL RECOMMENDATIONS: * Calibrated bedscale weight for accurate CBW + weekly wt monitoring * Per SNF: Ht of 6'1", Wt 125# (05/2019) * Monitor lytes closely, replete as needed (K elev upon adm, monitor closely, need for TF change-> now wnl) * Monitor BGs closely w/ TF * Add JOYCELYN BID w/ TF order for wound care .
--- NOTE | 2019-06-26 11:04 | NUR ---
HAND-OFF: Report given to Chel Naylor RN.
--- NOTE | 2019-06-26 11:05 | NUR ---
NURSE NOTES: Report received from ODILIA Santos. Patient observed laying in bed, asleep, opens eyes spontaneously. Trach to vent with settings AC 16, TV 600, FiO2 35%, no PEEP per MD's order; no respiratory distress noted. Patient is currently NPO at this time, EGD scheduled for today. Double lumen PICC line on left upper arm with D5W running @ 50mL/hr. Victor catheter noted, intact and patent, draining yellow urine to gravity. Safety precautions in place, bed locked, alarmed, and in lowest position, padded side rails up x2, and call light left within reach. Pt is on a P200 mattress. Seizure precautions maintained. Will resume plan of care.
--- NOTE | 2019-06-26 11:43 | General Progress Note ---
Assessment/Plan Problem List: (1) Diabetes ICD Codes: E11.9 - Type 2 diabetes mellitus without complications SNOMED: 14157855 (2) HTN (hypertension) ICD Codes: I10 - Essential (primary) hypertension SNOMED: 08670237 (3) CVA (cerebral vascular accident) ICD Codes: I63.9 - Cerebral infarction, unspecified SNOMED: 283026288 (4) Severe protein-calorie malnutrition ICD Codes: E43 - Unspecified severe protein-calorie malnutrition SNOMED: 015249412 (5) Feeding by G-tube ICD Codes: Z93.1 - Gastrostomy status SNOMED: 004399507, 362898270 (6) Respiratory failure, [id number] ICD Codes: J96.20 - Respiratory failure, [id number] SNOMED: 25817450 (7) Anemia ICD Codes: D64.9 - Anemia, unspecified SNOMED: 648281071 (8) Chronic respiratory failure ICD Codes: J96.10 - Chronic respiratory failure, unspecified whether with hypoxia or hypercapnia SNOMED: 44865426 (9) Septic shock ICD Codes: A41.9 - Sepsis, unspecified organism; R65.21 - Severe sepsis with septic shock SNOMED: 35958345 (10) Alzheimer's dementia ICD Codes: G30.9 - Alzheimer's disease, unspecified SNOMED: 88365322 (11) Severe sepsis ICD Codes: A41.9 - Sepsis, unspecified organism; R65.20 - Severe sepsis without septic shock SNOMED: 82797972 (12) Hypothyroidism ICD Codes: E03.9 - Hypothyroidism, unspecified SNOMED: 69255785 Status: unchanged Assessment/Plan: vent abx wean pressor cbc bmp am tranfuse prn ltach eval Subjective Constitutional: Reports: weakness Allergies: Coded Allergies: NO KNOWN DRUG ALLERGIES (Verified Allergy, Unknown, 09/11/16) All Systems: reviewed and negative except above Subjective trach vent altered Objective Last 24 Hour Vital Signs Date Time Temp Pulse Resp B/P (MAP) Pulse Ox O2 Delivery O2 Flow Rate FiO2 06/26/19 11:14 76 16 35 06/26/19 09:06 94 16 35 06/26/19 08:00 35 06/26/19 08:00 98.8 79 16 124/57 (79) 100 06/26/19 08:00 Mechanical Ventilator 06/26/19 07:40 80 06/26/19 06:50 81 16 35 06/26/19 04:51 84 16 35 06/26/19 04:00 86 06/26/19 04:00 35 06/26/19 04:00 Mechanical Ventilator 06/26/19 04:00 98.6 80 16 125/60 (81) 99 06/26/19 03:15 92 16 35 06/26/19 01:04 83 16 35 06/26/19 00:00 99.1 88 16 126/76 (93) 98 06/26/19 00:00 90 06/26/19 00:00 Mechanical Ventilator 06/25/19 22:40 89 16 35 06/25/19 20:59 81 16 35 06/25/19 20:00 35 06/25/19 20:00 Mechanical Ventilator 06/25/19 20:00 98.7 78 16 137/80 (99) 100 06/25/19 19:38 77 06/25/19 18:56 70 17 35 06/25/19 17:16 67 16 35 06/25/19 16:00 Mechanical Ventilator 06/25/19 16:00 67 06/25/19 16:00 35 06/25/19 16:00 96.4 62 16 141/95 (110) 100 06/25/19 15:08 72 17 35 06/25/19 13:05 69 16 35 06/25/19 12:00 73 06/25/19 12:00 Mechanical Ventilator 06/25/19 12:00 35 06/25/19 12:00 97.4 63 16 140/81 (100) 100 Intake and Output 06/25/19 06/26/19 18:59 06:59 Intake Total 537.5 ml 835.73 ml Output Total 900 ml 900 ml Balance -362.5 ml -64.27 ml IV Total 537.5 ml 525.73 ml Blood Product 250 ml Other 60 ml Output Urine Total 900 ml 900 ml Laboratory Tests 06/26/19 02:00: White Blood Count 7.9, Red Blood Count 3.15L, Hemoglobin 8.8L, Hematocrit 26.5L , Mean Corpuscular Volume 84, Mean Corpuscular Hemoglobin 28.1, Mean Corpuscular Hemoglobin Concent 33.3, Red Cell Distribution Width 15.0H, Platelet Count 205, Mean Platelet Volume 9.2, Neutrophils (%) (Auto) 74.7, Lymphocytes (%) (Auto) 10.9L, Monocytes (%) (Auto) 11.9H, Eosinophils (%) (Auto ) 1.8, Basophils (%) (Auto) 0.8, Prothrombin Time 10.9, Prothromb Time International Ratio 1.0, Activated Partial Thromboplast Time 47H, Sodium Level 133L, Potassium Level 4.6, Chloride Level 101, Carbon Dioxide Level 28, Anion Gap 4L, Blood Urea Nitrogen 16, Creatinine 1.0, Estimat Glomerular Filtration Rate > 60, Glucose Level 75, Calcium Level 8.4L Height (Feet): 5 Height (Inches): 8.00 Weight (Pounds): 189 General Appearance: lethargic EENT: normal ENT inspection Neck: normal alignment Cardiovascular: normal peripheral pulses, normal rate, regular rhythm Respiratory/Chest: chest wall non-tender, lungs clear, normal breath sounds Abdomen: normal bowel sounds, non tender, soft Extremities: normal inspection Edema: no edema noted Arm (L), no edema noted Arm (R), no edema noted Leg (L), no edema noted Leg (R), no edema noted Pedal (L), no edema noted Pedal (R), no edema noted Generalized Neurologic: motor weakness Skin: normal pigmentation, warm/dry Gato Viveros DO Jun 26, 2019 11:43
--- NOTE | 2019-06-26 11:43 | General Progress Note ---
Assessment/Plan Problem List: (1) custodial resident ICD Codes: Z59.3 - Problems related to living in residential institution SNOMED: 860049682 (2) GT SITE LEAKING (3) Alzheimer's dementia ICD Codes: G30.9 - Alzheimer's disease, unspecified SNOMED: 35869912 (4) Upper GI bleed ICD Codes: K92.2 - Upper gastrointestinal hemorrhage SNOMED: 52610846 (5) Severe erosive esophagitis (6) Malfunction of gastrostomy tube ICD Codes: K94.23 - Gastrostomy malfunction SNOMED: 066645285 (7) Chronic respiratory failure ICD Codes: J96.10 - Chronic respiratory failure, unspecified whether with hypoxia or hypercapnia SNOMED: 76764355 (8) Anemia ICD Codes: D64.9 - Anemia, unspecified SNOMED: 159522655 Status: unchanged Assessment/Plan: patient has active GIB no famiky to consent for EGD>>> will plan with MD consent Subjective ROS Limited/Unobtainable: No Allergies: Coded Allergies: NO KNOWN DRUG ALLERGIES (Verified Allergy, Unknown, 09/11/16) Objective Last 24 Hour Vital Signs Date Time Temp Pulse Resp B/P (MAP) Pulse Ox O2 Delivery O2 Flow Rate FiO2 06/26/19 11:14 76 16 35 06/26/19 09:06 94 16 35 06/26/19 08:00 35 06/26/19 08:00 98.8 79 16 124/57 (79) 100 06/26/19 08:00 Mechanical Ventilator 06/26/19 07:40 80 06/26/19 06:50 81 16 35 06/26/19 04:51 84 16 35 06/26/19 04:00 86 06/26/19 04:00 35 06/26/19 04:00 Mechanical Ventilator 06/26/19 04:00 98.6 80 16 125/60 (81) 99 06/26/19 03:15 92 16 35 06/26/19 01:04 83 16 35 06/26/19 00:00 99.1 88 16 126/76 (93) 98 06/26/19 00:00 90 06/26/19 00:00 Mechanical Ventilator 06/25/19 22:40 89 16 35 06/25/19 20:59 81 16 35 06/25/19 20:00 35 06/25/19 20:00 Mechanical Ventilator 06/25/19 20:00 98.7 78 16 137/80 (99) 100 06/25/19 19:38 77 06/25/19 18:56 70 17 35 06/25/19 17:16 67 16 35 06/25/19 16:00 Mechanical Ventilator 06/25/19 16:00 67 06/25/19 16:00 35 06/25/19 16:00 96.4 62 16 141/95 (110) 100 06/25/19 15:08 72 17 35 06/25/19 13:05 69 16 35 06/25/19 12:00 73 06/25/19 12:00 Mechanical Ventilator 06/25/19 12:00 35 06/25/19 12:00 97.4 63 16 140/81 (100) 100 Intake and Output 06/25/19 06/26/19 18:59 06:59 Intake Total 537.5 ml 835.73 ml Output Total 900 ml 900 ml Balance -362.5 ml -64.27 ml IV Total 537.5 ml 525.73 ml Blood Product 250 ml Other 60 ml Output Urine Total 900 ml 900 ml Laboratory Tests 06/26/19 02:00: White Blood Count 7.9, Red Blood Count 3.15L, Hemoglobin 8.8L, Hematocrit 26.5L , Mean Corpuscular Volume 84, Mean Corpuscular Hemoglobin 28.1, Mean Corpuscular Hemoglobin Concent 33.3, Red Cell Distribution Width 15.0H, Platelet Count 205, Mean Platelet Volume 9.2, Neutrophils (%) (Auto) 74.7, Lymphocytes (%) (Auto) 10.9L, Monocytes (%) (Auto) 11.9H, Eosinophils (%) (Auto ) 1.8, Basophils (%) (Auto) 0.8, Prothrombin Time 10.9, Prothromb Time International Ratio 1.0, Activated Partial Thromboplast Time 47H, Sodium Level 133L, Potassium Level 4.6, Chloride Level 101, Carbon Dioxide Level 28, Anion Gap 4L, Blood Urea Nitrogen 16, Creatinine 1.0, Estimat Glomerular Filtration Rate > 60, Glucose Level 75, Calcium Level 8.4L Height (Feet): 5 Height (Inches): 8.00 Weight (Pounds): 189 General Appearance: no apparent distress EENT: normal ENT inspection Neck: supple Cardiovascular: normal rate Respiratory/Chest: decreased breath sounds Abdomen: normal bowel sounds, non tender, soft Extremities: non-tender Vitaliy Wilson MD Jun 26, 2019 11:43
--- NOTE | 2019-06-26 11:44 | Pre-Procedure Note/Attestation ---
Pre-Procedure Note/Attestation Complete Prior to Procedure Planned Procedure: not applicable Procedure Narrative: egd Indications for Procedure Pre-Operative Diagnosis: GIB Attestation I attest that I discussed the nature of the procedure; its benefits; risks and complications; and alternatives (and the risks and benefits of such alternatives ), prior to the procedure, with the patient (or the patient's legal graphic art sales representative). I attest that, if there was a reasonable possibility of needing a blood transfusion, the patient (or the patient's legal graphic art sales representative) was given the [facility] standardized written summary, pursuant to the Mikel Fuad Blood Safety Act ([place] Health and Safety Code # 1645, as amended). I attest that I re-evaluated the patient just prior to the surgery and that there has been no change in the patient's H&P, except as documented below: Vitaliy Wilson MD Jun 26, 2019 11:44
[2019-06-26 12:00] VITALS: BP_SYST 124; BP_SYST 137; BP_DIAS 57
[2019-06-26] MEDS ORDERED: NS 275ml ONE ×2 (12:00→16:12)
[2019-06-26] MEDS ORDERED: Lidocaine 1% MPF 10mg/ml 5ml ONE (12:00)
[2019-06-26] MEDS ORDERED: Propofol 200mg/20ml IV ONE (12:00)
--- NOTE | 2019-06-26 12:15 | NUR ---
NURSE NOTES: Dr. Wilson at bedside performing EGD at this time. Pt tolerating well.
--- NOTE | 2019-06-26 12:42 | Infectious Diseases Prog Note ---
Assessment/Plan Assessment/Plan Mr. Huffman is a 68 yo male with PMHx of of chronic resp failure trach/vent dependant, diffuse ulcerative esophagitis, peptic esophageal stricture, asthma, GERD, Dm2, CVA/TIA w/ hemiplegia, functional quadriplegia, CAD, CHF, ESBL UTI , GIB s/p multiple EGDs in the past, schizoaffective disorder, Dementia, hypothyroidism, malnutrition, non verbal, infected obstuctive ureterolithiasis/ w abscess s/p L NT palced 12/2018, encephalopathy, Alzheimer's disease, multiple admissions, subacute facility resident who was sent to the for hypotension and bradycardia. Septic Shock- likely 2ry to UTI and PNA- off pressors now off perssors now Hx of resistant infections 06/23 CXR; Bilateral right greater than left pleural effusions are again demonstrated. Bilateral interstitial and airspace edema persists, unchanged Urine Cx 06/14/19 - >100k ESBL P, stuarti, ESBL P mirabilis (both S Ertapenem , ZOsyn) Blood Cx - NTD CXR show probable pna sp cx PsA (R imipenem, I levaquin), S. maltophila (S bactrim, levaquin) GT leakage with cellulitis -wound cx MDR/CRE K.pna, MDR PsA (colonizers) Leukocytosis; SP Hypothermia; SP Chronic resp failure trach/vent dependant asthma Dm2 CVA/TIA w/ hemiplegia Functional quadriplegia CAD CHF GIB s/p multiple EGDs in the past Schizoaffective disorder Dementia Hypothyroidism Non verbal Alzheimer's disease PLAN: -Cont PO Levaquin #4/5 for S. maltophila -06/24 SP IV Amikacin #10 -06/23 SP Ertapenem #9 and IV Vancomycin #9 -10/ SP PO Vancomycin #3 -10/ SP Flagyl #2 - monitor CBC and Temps -wound care per hospital protocol -GI f/u Thank you for this consult. [facility] will continue to follow the patient with you during this hospitalization. Subjective Allergies: Coded Allergies: NO KNOWN DRUG ALLERGIES (Verified Allergy, Unknown, 09/11/16) Subjective afebrile no leukocytosis Objective Vital Signs Last 24 Hour Vital Signs Date Time Temp Pulse Resp B/P (MAP) Pulse Ox O2 Delivery O2 Flow Rate FiO2 06/26/19 11:14 76 16 35 06/26/19 09:06 94 16 35 06/26/19 08:00 35 06/26/19 08:00 98.8 79 16 124/57 (79) 100 06/26/19 08:00 Mechanical Ventilator 06/26/19 07:40 80 06/26/19 06:50 81 16 35 06/26/19 04:51 84 16 35 06/26/19 04:00 86 06/26/19 04:00 35 06/26/19 04:00 Mechanical Ventilator 06/26/19 04:00 98.6 80 16 125/60 (81) 99 06/26/19 03:15 92 16 35 06/26/19 01:04 83 16 35 06/26/19 00:00 99.1 88 16 126/76 (93) 98 06/26/19 00:00 90 06/26/19 00:00 Mechanical Ventilator 06/25/19 22:40 89 16 35 06/25/19 20:59 81 16 35 06/25/19 20:00 35 06/25/19 20:00 Mechanical Ventilator 06/25/19 20:00 98.7 78 16 137/80 (99) 100 06/25/19 19:38 77 06/25/19 18:56 70 17 35 06/25/19 17:16 67 16 35 06/25/19 16:00 Mechanical Ventilator 06/25/19 16:00 67 06/25/19 16:00 35 06/25/19 16:00 96.4 62 16 141/95 (110) 100 06/25/19 15:08 72 17 35 06/25/19 13:05 69 16 35 Height (Feet): 5 Height (Inches): 8.00 Weight (Pounds): 189 Objective Gen: On vent in IVU HEENT: NCAT, MMM, PERRL, No Oral lesion, no scleral icterus NECK: supple, No LAD, No JVD, Trached LUNGS: Coarse B/L, No W/C CARDS: RRR, S1, S2, No M/R/G, ABD: Soft, NT, ND, No R/G, + BS, No HSM, No Masses, PEG : Deferred Ext: C/C/E, Pulses 2+ B/L (DP, Rad): NEURO: A/O x 0, no following SKIN: Warm/dry, No rashes Laboratory Tests Test 06/26/19 02:00 White Blood Count 7.9 K/UL (4.8-10.8) Red Blood Count 3.15 M/UL (4.70-6.10) L Hemoglobin 8.8 G/DL (14.2-18.0) L Hematocrit 26.5 % (42.0-52.0) L Mean Corpuscular Volume 84 FL (80-99) Mean Corpuscular Hemoglobin 28.1 PG (27.0-31.0) Mean Corpuscular Hemoglobin Concent 33.3 G/DL (32.0-36.0) Red Cell Distribution Width 15.0 % (11.6-14.8) H Platelet Count 205 K/UL (150-450) Mean Platelet Volume 9.2 FL (6.5-10.1) Neutrophils (%) (Auto) 74.7 % (45.0-75.0) Lymphocytes (%) (Auto) 10.9 % (20.0-45.0) L Monocytes (%) (Auto) 11.9 % (1.0-10.0) H Eosinophils (%) (Auto) 1.8 % (0.0-3.0) Basophils (%) (Auto) 0.8 % (0.0-2.0) Prothrombin Time 10.9 SEC (9.30-11.50) Prothromb Time International Ratio 1.0 (0.9-1.1) Activated Partial Thromboplast Time 47 SEC (23-33) H Sodium Level 133 MMOL/L (136-145) L Potassium Level 4.6 MMOL/L (3.5-5.1) Chloride Level 101 MMOL/L (98-107) Carbon Dioxide Level 28 MMOL/L (21-32) Anion Gap 4 mmol/L (5-15) L Blood Urea Nitrogen 16 mg/dL (7-18) Creatinine 1.0 MG/DL (0.55-1.30) Estimat Glomerular Filtration Rate > 60 mL/min (>60) Glucose Level 75 MG/DL (74-106) Calcium Level 8.4 MG/DL (8.5-10.1) L Current Medications Medications (Trade) Dose Ordered Sig/Wanda Route PRN Reason Start Time Stop Time Status Last Admin Dose Admin Acetaminophen (Tylenol) 650 mg Q4H PRN GT fever (temp>100.5F) 06/19/19 04:00 07/14/19 03:59 Acetaminophen (Tylenol) 650 mg Q4H PRN ORAL Mild Pain (Pain Scale 1-3) 06/26/19 08:45 06/26/19 16:00 Al Hydroxide/Mg Hydroxide (Mylanta) 15 ml Q1H PRN ORAL gi upset 06/26/19 08:45 06/26/19 16:00 Atropine Sulfate (Atropine 0.4mg/ ml) 0.5 mg Q5M PRN IVP bpm less than 45 06/26/19 08:45 06/26/19 16:00 Chlorhexidine Gluconate (Jasmin-Hex 2%) 1 applic DAILY@2000 TOPIC 06/20/19 20:00 07/20/19 19:59 06/25/19 21:11 Dextrose 1,000 ml @ 50 mls/hr Q20H IV 06/19/19 03:15 07/18/19 12:59 06/25/19 19:29 Diphenhydramine HCl (Benadryl) 25 mg Q15M PRN IVP Itching 06/26/19 08:45 06/26/19 16:00 Fentanyl Citrate (Sublimaze 100 mcg/2 mL) 25 mcg Q10M PRN IV Moderate Pain (Pain Scale 4-6) 06/26/19 08:45 06/26/19 16:00 Hydralazine HCl (Apresoline) 5 mg Q30M PRN IV SBP>160 /DBP>90 06/26/19 08:45 06/26/19 16:00 Levofloxacin (Levaquin) 750 mg QOD GT 06/23/19 14:00 06/30/19 13:59 06/25/19 08:31 Levothyroxine Sodium (Synthroid) 88 mcg DAILY@0630 GT 06/22/19 06:30 07/20/19 06:29 06/26/19 05:39 Midazolam HCl (Versed 2mg/2ml vial) 1 mg Q15M PRN IVP For Anxiety 06/26/19 08:45 06/26/19 16:00 Midodrine (Pro-Amatine) 2.5 mg EVERY 8 HOURS GT 06/23/19 22:00 07/17/19 12:59 06/24/19 05:35 Ondansetron HCl (Zofran) 4 mg Q6H PRN IVP Nausea & Vomiting 06/19/19 08:30 07/14/19 14:29 Pantoprazole (Protonix) 40 mg EVERY 12 HOURS IVP 06/21/19 09:00 07/21/19 08:59 06/26/19 08:08 Polyethylene Glycol (Miralax) 17 gm DAILYPRN PRN GT Constipation 06/19/19 14:30 07/14/19 14:29 Sucralfate (Carafate) 1 gm EVERY 8 HOURS GT 06/23/19 22:00 07/21/19 08:59 06/26/19 05:39 Zinc Oxide (Zinc Oxide) 1 applic DAILY TOPIC 06/21/19 09:00 07/21/19 08:59 06/26/19 08:08 Lisy Lai M.D. Jun 26, 2019 12:42
--- NOTE | 2019-06-26 12:46 | Endoscopy Procedure Note ---
Endoscopy Procedure Note General Indication for Procedure: gib Procedures Performed: EGD Operative Findings/Diagnosis: esoph stricture Specimen: yes Pt Tolerated Procedure Well: Yes Estimated Blood Loss: none Anesthesia Anesthesiologist: luciano Anesthesia: MAC Inserted Devices Implant(s) used?: No GI Core Measures 50 yrs or older w/o bx or poly: Not Applicable 10yrs. F/U recommended: Not Applicable Vitaliy Wilson MD Jun 26, 2019 12:45
--- NOTE | 2019-06-26 13:08 | Surgery Progress Note ---
Surgery Progress Note Subjective Additional Comments no acute events resting comfortable on vent support xray noted exam stable Objective Last 24 Hour Vital Signs Date Time Temp Pulse Resp B/P (MAP) Pulse Ox O2 Delivery O2 Flow Rate FiO2 06/26/19 11:14 76 16 35 06/26/19 09:06 94 16 35 06/26/19 08:00 35 06/26/19 08:00 98.8 79 16 124/57 (79) 100 06/26/19 08:00 Mechanical Ventilator 06/26/19 07:40 80 06/26/19 06:50 81 16 35 06/26/19 04:51 84 16 35 06/26/19 04:00 86 06/26/19 04:00 35 06/26/19 04:00 Mechanical Ventilator 06/26/19 04:00 98.6 80 16 125/60 (81) 99 06/26/19 03:15 92 16 35 06/26/19 01:04 83 16 35 06/26/19 00:00 99.1 88 16 126/76 (93) 98 06/26/19 00:00 90 06/26/19 00:00 Mechanical Ventilator 06/25/19 22:40 89 16 35 06/25/19 20:59 81 16 35 06/25/19 20:00 35 06/25/19 20:00 Mechanical Ventilator 06/25/19 20:00 98.7 78 16 137/80 (99) 100 06/25/19 19:38 77 06/25/19 18:56 70 17 35 06/25/19 17:16 67 16 35 06/25/19 16:00 Mechanical Ventilator 06/25/19 16:00 67 06/25/19 16:00 35 06/25/19 16:00 96.4 62 16 141/95 (110) 100 06/25/19 15:08 72 17 35 I&O Intake and Output 06/25/19 06/26/19 18:59 06:59 Intake Total 537.5 ml 835.73 ml Output Total 900 ml 900 ml Balance -362.5 ml -64.27 ml IV Total 537.5 ml 525.73 ml Blood Product 250 ml Other 60 ml Output Urine Total 900 ml 900 ml Cardiovascular: RSR Respiratory: decreased breath sounds Abdomen: soft, present bowel sounds Extremities: no cyanosis Laboratory Tests Test 06/26/19 02:00 White Blood Count 7.9 K/UL (4.8-10.8) Red Blood Count 3.15 M/UL (4.70-6.10) L Hemoglobin 8.8 G/DL (14.2-18.0) L Hematocrit 26.5 % (42.0-52.0) L Mean Corpuscular Volume 84 FL (80-99) Mean Corpuscular Hemoglobin 28.1 PG (27.0-31.0) Mean Corpuscular Hemoglobin Concent 33.3 G/DL (32.0-36.0) Red Cell Distribution Width 15.0 % (11.6-14.8) H Platelet Count 205 K/UL (150-450) Mean Platelet Volume 9.2 FL (6.5-10.1) Neutrophils (%) (Auto) 74.7 % (45.0-75.0) Lymphocytes (%) (Auto) 10.9 % (20.0-45.0) L Monocytes (%) (Auto) 11.9 % (1.0-10.0) H Eosinophils (%) (Auto) 1.8 % (0.0-3.0) Basophils (%) (Auto) 0.8 % (0.0-2.0) Prothrombin Time 10.9 SEC (9.30-11.50) Prothromb Time International Ratio 1.0 (0.9-1.1) Activated Partial Thromboplast Time 47 SEC (23-33) H Sodium Level 133 MMOL/L (136-145) L Potassium Level 4.6 MMOL/L (3.5-5.1) Chloride Level 101 MMOL/L (98-107) Carbon Dioxide Level 28 MMOL/L (21-32) Anion Gap 4 mmol/L (5-15) L Blood Urea Nitrogen 16 mg/dL (7-18) Creatinine 1.0 MG/DL (0.55-1.30) Estimat Glomerular Filtration Rate > 60 mL/min (>60) Glucose Level 75 MG/DL (74-106) Calcium Level 8.4 MG/DL (8.5-10.1) L Plan Problems: (1) Severe protein-calorie malnutrition Assessment & Plan: DAILY ESTIMATED NEEDS: Needs based on Critical care, underweight TF 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 * Swallowing difficulty R/T respiratory status as evidenced by pt vent dep via trach, PEG dep. ENTERAL NUTRITION RECOMMENDATIONS: Nepro @45mL/hr x 22hr to provide 990mL, 1782kcal, 80g pro, 720mL free water -When Hemodynamically stable, start Nepro @ 15mL/hr for 6 hrs. -Advance as tolerated 10mL q 4-6 hrs to goal. -TF @goal meets 100% est needs. -Flush per MD/ HOB >30 degrees. ADDITIONAL RECOMMENDATIONS: * Calibrated bedscale weight for accurate CBW + weekly wt monitoring * Per SNF: Ht of 6'1", Wt 125# (05/2019) * TF recs as above when medically stable * Monitor for cont'd need of renal formula (K 5.5) * Monitor lytes and hydration status. (2) Feeding by G-tube Assessment & Plan: g tube changed s/p scope results pending (3) Respiratory failure, [id number] (4) Septic shock Assessment & Plan: hypotensive - improved tachycardic - improved labs as above improving PICC line placed And central line removed will follow with recs thank you (5) Severe sepsis (6) GT SITE LEAKING Assessment & Plan: Patient identified worsening G-tube site leakage and cellulitis. This has been noted on prior admissions which is cared for. Plan for placement as below Pt presents with contractures. Skin erosions to abdominal region, and multiple areas of non-blanching erythema. Skin erosion noted to abdomen extending around GT and mostly to L abdominal area, skin is grossly red and excoriated. Furuncle noted to L flank oozing moderate amt purulent exudate. Non-blanchable erythema without fluctuance noted to L lateral malleolus (L) 1.5cm x (W)3cm. Non-blanchable erythema without fluctuance noted to lateral L foot (L)1cm x (W) 1cm. Non-blanchable erythema noted to sacral cleft. No other skin concerns noted. Tx.Plan: Apply Zinc Oxide Paste to GT site and excoriated areas on abd daily and prn. Apply Betadine to Boil L flank Daily .Cover with Optifoam drsg. Change daily and prn. Apply Moisture Barrier Paste to sacrum. Cover with Optifoam drsg. Change every 3 days and prn. Apply Cavilon to Non-blanchable areas L foot and bilat heels. Cover each site with Optifoam drsg. Change every 7 days and prn. Reposition at least every 2hours or as tolerated. Place pillow between knees. Off-load heels with pillow. APM/RENO Mattress overlay. Quirino Bernard Jun 26, 2019 13:08
--- NOTE | 2019-06-26 13:25 | Immediate Post-Op Evaluation ---
Immediate Post-Op Evalulation Immediate Post-Op Evalulation Procedure: egd w/bx Date of Evaluation: Jun 26, 2019 Time of Evaluation: 12:37 Blood Products: none Estimated Blood Loss: negligible Blood Pressure Systolic: 137 Blood Pressure Diastolic: 57 Pulse Rate: 85 Respiratory Rate: 21 O2 Sat by Pulse Oximetry: 97 Temperature (Fahrenheit): 97.7 Pain Score (1-10): 0 Nausea: No Vomiting: No Complications none Patient Status: awake, reacts, patent, ventilated Hydration Status: adequate Drug: Karin Arias MD Jun 26, 2019 13:25
--- NOTE | 2019-06-26 13:25 | 48 Hour Post Anesthesia Eval ---
Post Anesthesia Evaluation Procedure: egd w/bx Date of Evaluation: Jun 26, 2019 Time of Evaluation: 12:39 Blood Pressure Systolic: 137 0: 57 Pulse Rate: 85 Respiratory Rate: 21 Temperature (Fahrenheit): 97.7 O2 Sat by Pulse Oximetry: 97 Airway: patent Nausea: No Vomiting: No Pain Intensity: 0 Hydration Status: adequate Cardiopulmonary Status: stable Mental Status/LOC: patient returned to baseline Post-Anesthesia Complications: none Follow-up care needed: N/A Karin Mcbride MD Jun 26, 2019 13:25
[2019-06-26] MEDS ORDERED: Nulytely 4L ORAL ONE (14:00)
--- NOTE | 2019-06-26 14:52 | Hematology/Onc Progress Note ---
Assessment/Plan Assessment/Plan ASSESSMENT AND RECOMMENDATIONS # Anemia of chronic disease due to underlying chronic medical issues, multifactorial --> Anemia w/u has been reviewed and c/w acd ferritin 635, tibc 160 --> No evidence of hemolysis is noted, peripheral smear has been reviewed. --> Hgb goal >7. Transfuse prn. --> Epogen or iron at this time is not particularly indicated --> unable to obtain consent, with no family --> r/o hemolysis as well --> hgb 7.5-->8-->8.7-->8.2-->7.8-->8-->7.4-->8.8 --> 06/26: EGD PENDING results --> spep is negative for bands # Leukocytosis. Likely related to underlying infection versus reactive process. patient with septic shock on admission --> Peripheral has been reviewed--> rouleaux formation on smear --> Medications have been reviewed --> Imaging has been reviewed. CXR shows Suboptimal positioning. No interval consolidation, overt edema or other acute cardiopulmonary findings. --> urine culture with ++uti on cultures provedencia --> Has been started on abx, empiric treatment (ertap/vanc)--> Levo --> wbc is 36-->26k-->9k # Thrombocytopenia decreased since admission --> plt count 190-->123k-->101k-->95k-->93k-->120k --> abx for id # Septic shock poa --> on abx per id --> initially on pressors, now off # Upper GI vomiting bleed in prior admission --> currently appears to have resolved # Trach and PEG. --> chronic # Hyperkalemia --> as per renal # Dvt ppx heparin sq (ON HOLD for potential bleed) The timing of this note does not necessarily reflect the time of the patient was seen. Greatly appreciate consultation. Subjective Constitutional: Denies: no symptoms, chills, fever, malaise, weakness, other HEENT: Denies: no symptoms, eye pain, blurred vision, tearing, double vision, ear pain, ear discharge, nose pain, nose congestion, throat pain, throat swelling, mouth pain, mouth swelling, other Cardiovascular: Denies: no symptoms, chest pain, edema, irregular heart rate, lightheadedness, palpitations, syncope, other Respiratory: Denies: no symptoms, cough, shortness of breath, SOB with excertion, SOB at rest, sputum, wheezing, other Genitourinary: Denies: no symptoms, burning, discharge, frequency, flank pain, hematuria, incontinence, pain, urgency, other Neurologic/Psychiatric: Denies: no symptoms, anxiety, depressed, emotional problems, headache, numbness, paresthesia, pre-existing deficit, seizure, tingling, tremors, weakness, other Endocrine: Denies: no symptoms, excessive sweating, flushing, intolerance to cold, intolerance to heat, increased hunger, increased thirst, increased urine, unexplained weight gain, unexplained weight loss, other Allergies: Coded Allergies: NO KNOWN DRUG ALLERGIES (Verified Allergy, Unknown, 09/11/16) Subjective 06/17: blood transfusion completed, on low dose pressors, no bleeding noted 06/19: dw rn, no major events, cbc reviewed, tube feeds ongoing 06/22: no major changes, no bleeding or night sweats, on abx, in sariah 06/23: no f/c, no bleeding, labs noted, in sariah, hgb 8, plt 120k 06/24: labs reviewed, no bleeding, no night sweats, no bleeding 06/25: heparin held for potential bleed, gt is clamped, no events, no fc 06/26: for egd today with gi, bleeding noted, requiring prbc transf Objective Objective Current Medications Medications (Trade) Dose Ordered Sig/Wanda Route PRN Reason Start Time Stop Time Status Last Admin Dose Admin Acetaminophen (Tylenol) 650 mg Q4H PRN GT fever (temp>100.5F) 06/19/19 04:00 07/14/19 03:59 Acetaminophen (Tylenol) 650 mg Q4H PRN ORAL Mild Pain (Pain Scale 1-3) 06/26/19 08:45 06/26/19 16:00 Al Hydroxide/Mg Hydroxide (Mylanta) 15 ml Q1H PRN ORAL gi upset 06/26/19 08:45 06/26/19 16:00 Atropine Sulfate (Atropine 0.4mg/ ml) 0.5 mg Q5M PRN IVP bpm less than 45 06/26/19 08:45 06/26/19 16:00 Chlorhexidine Gluconate (Jasmin-Hex 2%) 1 applic DAILY@2000 TOPIC 06/20/19 20:00 07/20/19 19:59 06/25/19 21:11 Dextrose 1,000 ml @ 50 mls/hr Q20H IV 06/19/19 03:15 07/18/19 12:59 06/25/19 19:29 Diphenhydramine HCl (Benadryl) 25 mg Q15M PRN IVP Itching 06/26/19 08:45 06/26/19 16:00 Fentanyl Citrate (Sublimaze 100 mcg/2 mL) 25 mcg Q10M PRN IV Moderate Pain (Pain Scale 4-6) 06/26/19 08:45 06/26/19 16:00 Hydralazine HCl (Apresoline) 5 mg Q30M PRN IV SBP>160 /DBP>90 06/26/19 08:45 06/26/19 16:00 Levofloxacin (Levaquin) 750 mg QOD GT 06/23/19 14:00 06/30/19 13:59 06/25/19 08:31 Levothyroxine Sodium (Synthroid) 88 mcg DAILY@0630 GT 06/22/19 06:30 07/20/19 06:29 06/26/19 05:39 Midazolam HCl (Versed 2mg/2ml vial) 1 mg Q15M PRN IVP For Anxiety 06/26/19 08:45 06/26/19 16:00 Midodrine (Pro-Amatine) 2.5 mg EVERY 8 HOURS GT 06/23/19 22:00 07/17/19 12:59 06/26/19 14:01 Ondansetron HCl (Zofran) 4 mg Q6H PRN IVP Nausea & Vomiting 06/19/19 08:30 07/14/19 14:29 Pantoprazole (Protonix) 40 mg EVERY 12 HOURS IVP 06/21/19 09:00 07/21/19 08:59 06/26/19 08:08 Polyethylene Glycol (Miralax) 17 gm DAILYPRN PRN GT Constipation 06/19/19 14:30 07/14/19 14:29 Sucralfate (Carafate) 1 gm EVERY 8 HOURS GT 06/23/19 22:00 07/21/19 08:59 06/26/19 14:01 Zinc Oxide (Zinc Oxide) 1 applic DAILY TOPIC 06/21/19 09:00 07/21/19 08:59 06/26/19 08:08 Last 24 Hour Vital Signs Date Time Temp Pulse Resp B/P (MAP) Pulse Ox O2 Delivery O2 Flow Rate FiO2 06/26/19 13:24 79 16 35 06/26/19 12:00 Mechanical Ventilator 06/26/19 12:00 97.7 85 21 137/57 (83) 97 06/26/19 12:00 35 06/26/19 11:40 81 06/26/19 11:14 76 16 35 06/26/19 09:06 94 16 35 06/26/19 08:00 35 06/26/19 08:00 98.8 79 16 124/57 (79) 100 06/26/19 08:00 Mechanical Ventilator 06/26/19 07:40 80 06/26/19 06:50 81 16 35 06/26/19 04:51 84 16 35 06/26/19 04:00 86 06/26/19 04:00 35 06/26/19 04:00 Mechanical Ventilator 06/26/19 04:00 98.6 80 16 125/60 (81) 99 06/26/19 03:15 92 16 35 06/26/19 01:04 83 16 35 06/26/19 00:00 99.1 88 16 126/76 (93) 98 06/26/19 00:00 90 06/26/19 00:00 Mechanical Ventilator 06/25/19 22:40 89 16 35 06/25/19 20:59 81 16 35 06/25/19 20:00 35 06/25/19 20:00 Mechanical Ventilator 06/25/19 20:00 98.7 78 16 137/80 (99) 100 06/25/19 19:38 77 06/25/19 18:56 70 17 35 06/25/19 17:16 67 16 35 06/25/19 16:00 Mechanical Ventilator 06/25/19 16:00 67 06/25/19 16:00 35 06/25/19 16:00 96.4 62 16 141/95 (110) 100 06/25/19 15:08 72 17 35 06/25/19 13:05 69 16 35 06/25/19 12:00 73 06/25/19 12:00 Mechanical Ventilator 06/25/19 12:00 35 06/25/19 12:00 97.4 63 16 140/81 (100) 100 06/25/19 11:01 69 16 35 06/25/19 09:02 70 16 35 06/25/19 08:00 97.5 70 16 136/81 (99) 100 06/25/19 08:00 35 06/25/19 08:00 Mechanical Ventilator 06/25/19 08:00 73 06/25/19 07:25 71 16 35 06/25/19 05:30 71 16 35 06/25/19 04:00 72 06/25/19 04:00 97.5 71 16 127/77 (94) 99 06/25/19 04:00 35 06/25/19 04:00 Mechanical Ventilator 06/25/19 03:23 70 20 35 06/25/19 01:30 78 17 35 06/25/19 00:00 35 06/25/19 00:00 Mechanical Ventilator 06/25/19 00:00 97.4 75 16 120/65 (83) 99 06/25/19 00:00 83 06/24/19 23:30 79 16 35 06/24/19 21:30 85 17 35 06/24/19 20:00 Mechanical Ventilator 06/24/19 20:00 72 06/24/19 20:00 35 06/24/19 20:00 96.3 60 18 129/77 (94) 98 06/24/19 19:30 69 18 35 06/24/19 17:15 72 17 35 06/24/19 16:00 97.0 69 16 124/65 (84) 95 06/24/19 16:00 Mechanical Ventilator 06/24/19 16:00 35 06/24/19 15:38 69 06/24/19 15:29 68 16 35 Intake and Output 06/25/19 06/26/19 18:59 06:59 Intake Total 537.5 ml 835.73 ml Output Total 900 ml 900 ml Balance -362.5 ml -64.27 ml IV Total 537.5 ml 525.73 ml Blood Product 250 ml Other 60 ml Output Urine Total 900 ml 900 ml Labs Test 06/24/19 03:30 06/25/19 03:30 06/26/19 02:00 White Blood Count 9.2 K/UL (4.8-10.8) 7.6 K/UL (4.8-10.8) 7.9 K/UL (4.8-10.8) Red Blood Count 2.77 M/UL (4.70-6.10) 2.66 M/UL (4.70-6.10) 3.15 M/UL (4.70-6.10) Hemoglobin 7.7 G/DL (14.2-18.0) 7.4 G/DL (14.2-18.0) 8.8 G/DL (14.2-18.0) Hematocrit 23.6 % (42.0-52.0) 22.6 % (42.0-52.0) 26.5 % (42.0-52.0) Mean Corpuscular Volume 85 FL (80-99) 85 FL (80-99) 84 FL (80-99) Mean Corpuscular Hemoglobin 27.9 PG (27.0-31.0) 27.7 PG (27.0-31.0) 28.1 PG (27.0-31.0) Mean Corpuscular Hemoglobin Concent 32.7 G/DL (32.0-36.0) 32.6 G/DL (32.0-36.0) 33.3 G/DL (32.0-36.0) Red Cell Distribution Width 15.5 % (11.6-14.8) 15.5 % (11.6-14.8) 15.0 % (11.6-14.8) Platelet Count 141 K/UL (150-450) 169 K/UL (150-450) 205 K/UL (150-450) Mean Platelet Volume 10.4 FL (6.5-10.1) 9.7 FL (6.5-10.1) 9.2 FL (6.5-10.1) Neutrophils (%) (Auto) % (45.0-75.0) % (45.0-75.0) 74.7 % (45.0-75.0) Lymphocytes (%) (Auto) % (20.0-45.0) % (20.0-45.0) 10.9 % (20.0-45.0) Monocytes (%) (Auto) % (1.0-10.0) % (1.0-10.0) 11.9 % (1.0-10.0) Eosinophils (%) (Auto) % (0.0-3.0) % (0.0-3.0) 1.8 % (0.0-3.0) Basophils (%) (Auto) % (0.0-2.0) % (0.0-2.0) 0.8 % (0.0-2.0) Differential Total Cells Counted 100 100 Neutrophils % (Manual) 72 % (45-75) 74 % (45-75) Lymphocytes % (Manual) 21 % (20-45) 12 % (20-45) Monocytes % (Manual) 6 % (1-10) 12 % (1-10) Eosinophils % (Manual) 1 % (0-3) 2 % (0-3) Basophils % (Manual) 0 % (0-2) 0 % (0-2) Band Neutrophils 0 % (0-8) 0 % (0-8) Platelet Estimate Decreased Adequate Platelet Morphology Normal Normal Anisocytosis 1+ 1+ Sodium Level 135 MMOL/L (136-145) 132 MMOL/L (136-145) 133 MMOL/L (136-145) Potassium Level 4.3 MMOL/L (3.5-5.1) 4.4 MMOL/L (3.5-5.1) 4.6 MMOL/L (3.5-5.1) Chloride Level 104 MMOL/L (98-107) 103 MMOL/L (98-107) 101 MMOL/L (98-107) Carbon Dioxide Level 27 MMOL/L (21-32) 27 MMOL/L (21-32) 28 MMOL/L (21-32) Anion Gap 4 mmol/L (5-15) 3 mmol/L (5-15) 4 mmol/L (5-15) Blood Urea Nitrogen 22 mg/dL (7-18) 20 mg/dL (7-18) 16 mg/dL (7-18) Creatinine 1.0 MG/DL (0.55-1.30) 0.9 MG/DL (0.55-1.30) 1.0 MG/DL (0.55-1.30) Estimat Glomerular Filtration Rate > 60 mL/min (>60) > 60 mL/min (>60) > 60 mL/min (>60) Glucose Level 102 MG/DL (74-106) 91 MG/DL (74-106) 75 MG/DL (74-106) Calcium Level 8.5 MG/DL (8.5-10.1) 8.5 MG/DL (8.5-10.1) 8.4 MG/DL (8.5-10.1) Hypochromasia 3+ Spherocytes 1+ Phosphorus Level 3.2 MG/DL (2.5-4.9) Magnesium Level 1.7 MG/DL (1.8-2.4) Prothrombin Time 10.9 SEC (9.30-11.50) Prothromb Time International Ratio 1.0 (0.9-1.1) Activated Partial Thromboplast Time 47 SEC (23-33) Height (Feet): 5 Height (Inches): 8.00 Weight (Pounds): 189 Objective PHYSICAL EXAMINATION: VITAL SIGNS: Have been reviewed HEENT: Trach/vent site ++ CHEST: Bibasilar rales CV: Regular rate and rhythm. GI: Positive bowel sounds. G-tube++ EXTREMITIES: + edema. NEUROLOGICAL: Reflexes equal on both sides. Nikos Nath MD Jun 26, 2019 14:52
[2019-06-26] MEDS ORDERED: Phenytoin 250mg/5ml vial IVPB ONE (15:17)
[2019-06-26] MEDS: LORazepam Inj 2mg/ml 1ml IVP PRN (15:38)
--- NOTE | 2019-06-26 15:40 | NUR ---
NURSE NOTES: Upon entering pt's room, patient appeared to be actively having seizures, with noted facial and body twitching and jerking, with HR going up to 181 on monitoring and evaluation advisor. Dr. Keating notified, new orders received, noted and carried out. Pt received Ativan 2MG IVP, with effect. Pt no longer has s/s of seizures. Dilantin 500MG IVPB ordered and is now running. Will continue to monitor. Seizure precautions maintained.
--- NOTE | 2019-06-26 15:45 | Nephrology Progress Note ---
Assessment/Plan Problem List: (1) Septic shock (2) Hypothyroidism (3) Upper GI bleed (4) Respiratory failure, [id number] (5) Anemia Assessment Sepsis Shock on pressors GI Bleed Low Na and high K UTI HypoThyroidism Tracheostomy dependence Respiratory failure, [id number] Alzheimer's Feeding by G-tube Plan consider transfusion off pressors- On Midodrine On GT feeding On Reglan fluid challenge as needed adjust IV fluids transfuse as needed Monitor lytes and renal parametrs urine studies per orders Subjective ROS Limited/Unobtainable: Yes Objective Objective Last 24 Hour Vital Signs Date Time Temp Pulse Resp B/P (MAP) Pulse Ox O2 Delivery O2 Flow Rate FiO2 06/26/19 15:00 106 23 35 06/26/19 13:24 79 16 35 06/26/19 12:00 Mechanical Ventilator 06/26/19 12:00 97.7 85 21 137/57 (83) 97 06/26/19 12:00 35 06/26/19 11:40 81 06/26/19 11:14 76 16 35 06/26/19 09:06 94 16 35 06/26/19 08:00 35 06/26/19 08:00 98.8 79 16 124/57 (79) 100 06/26/19 08:00 Mechanical Ventilator 06/26/19 07:40 80 06/26/19 06:50 81 16 35 06/26/19 04:51 84 16 35 06/26/19 04:00 86 06/26/19 04:00 35 06/26/19 04:00 Mechanical Ventilator 06/26/19 04:00 98.6 80 16 125/60 (81) 99 06/26/19 03:15 92 16 35 06/26/19 01:04 83 16 35 06/26/19 00:00 99.1 88 16 126/76 (93) 98 06/26/19 00:00 90 06/26/19 00:00 Mechanical Ventilator 06/25/19 22:40 89 16 35 06/25/19 20:59 81 16 35 06/25/19 20:00 35 06/25/19 20:00 Mechanical Ventilator 06/25/19 20:00 98.7 78 16 137/80 (99) 100 06/25/19 19:38 77 06/25/19 18:56 70 17 35 06/25/19 17:16 67 16 35 06/25/19 16:00 Mechanical Ventilator 06/25/19 16:00 67 06/25/19 16:00 35 06/25/19 16:00 96.4 62 16 141/95 (110) 100 Intake and Output 06/25/19 06/26/19 19:00 07:00 Intake Total 487.5 ml 885.73 ml Output Total 900 ml 900 ml Balance -412.5 ml -14.27 ml IV Total 487.5 ml 575.73 ml Blood Product 250 ml Other 60 ml Output Urine Total 900 ml 900 ml Laboratory Tests 06/26/19 02:00: White Blood Count 7.9, Red Blood Count 3.15L, Hemoglobin 8.8L, Hematocrit 26.5L , Mean Corpuscular Volume 84, Mean Corpuscular Hemoglobin 28.1, Mean Corpuscular Hemoglobin Concent 33.3, Red Cell Distribution Width 15.0H, Platelet Count 205, Mean Platelet Volume 9.2, Neutrophils (%) (Auto) 74.7, Lymphocytes (%) (Auto) 10.9L, Monocytes (%) (Auto) 11.9H, Eosinophils (%) (Auto ) 1.8, Basophils (%) (Auto) 0.8, Prothrombin Time 10.9, Prothromb Time International Ratio 1.0, Activated Partial Thromboplast Time 47H, Sodium Level 133L, Potassium Level 4.6, Chloride Level 101, Carbon Dioxide Level 28, Anion Gap 4L, Blood Urea Nitrogen 16, Creatinine 1.0, Estimat Glomerular Filtration Rate > 60, Glucose Level 75, Calcium Level 8.4L Height (Feet): 5 Height (Inches): 8.00 Weight (Pounds): 189 General Appearance: no apparent distress EENT: other - vented Cardiovascular: normal rate Respiratory/Chest: decreased breath sounds Abdomen: soft, distended Sav Salvador MD Jun 26, 2019 15:45
[2019-06-26 16:00] VITALS: BP 115/60
[2019-06-26] MEDS ORDERED: Tubing IV Secondary IV ONE (16:12)
[2019-06-26] MEDS ORDERED: Tubing Blood Filter IV ONE (16:12)
[2019-06-26] MEDS ORDERED: PHENYTOIN IVPB ONE (16:30)
[2019-06-26] MEDS ORDERED: NS IVPB ONE (16:30)
--- NOTE | 2019-06-26 16:38 | NUR ---
INSURANCE NO INSURANCE INFORMATION IN BAR UNABLE TO SEND CLINICALS OR REVIEWS
--- NOTE | 2019-06-26 18:30 | Procedure Note ---
DATE OF PROCEDURE: 06/26/2019 SURGEON: Vitaliy Wilson M.D. PROCEDURE: Upper endoscopy with dilation and biopsy. ANESTHESIA: Per Dr. Kaplan. INSTRUMENT: Olympus adult flexible upper endoscope. INDICATION: GI bleeding. REASON FOR PROCEDURE: The procedure, risks, benefits, and possible consequences, including hemorrhage, aspiration, perforation and infection, and alternative treatments, were explained to the patient/legal guardian by Dr. Vitaliy Wilson and the patient/legal guardian understood and accepted these risks. PROCEDURE IN DETAIL: After informed consent was obtained and the patient was adequately sedated, Olympus upper endoscope was advanced from mouth into the esophagus. There was a tight stricture in the distal esophagus at about 40 cm from the incisors, mostly at the GE junction. We could not pass the scope beyond this point, so we decided to do a dilation. We started balloon dilation, starting at 8, advanced to 10. After the 10 mm dilation, we were able to pass the scope through into the stomach. The patient has diffuse gastritis. There was no obvious active bleeding nor blood products seen in the stomach. No ulceration except for one lesion in the antrum of the stomach. I could not exactly figure out what this lesion is. It roughly measured about 6 mm. There was a little bit of cavitation and central cavitation. No visible vessel. No bleeding. I doubt this possibly is an healing ulcer, but I was not sure. I did not want to biopsy it because there was question whether it might be a vessel underneath them causes bleeding. We did random biopsy of the antrum of the stomach. G-tube was in place without any G-tube ulceration. At this time, the upper endoscope was retrieved and procedure was terminated. SUMMARY OF FINDINGS: 1. Distal esophageal stricture, requiring dilation up to about 10 mm. 2. Gastritis. 3. Questionable healing gastric ulcer versus other lesions. RECOMMENDATIONS: The patient most probably will benefit from a colonoscopy to evaluate for source of GI bleeding because at this time we do not find active source for the upper GI bleeding or lower GI bleeding. At this time, the patient will get a G-tube prep. We will schedule him tomorrow for colonoscopy. I want to thank Dr. Gato Viveros for this kind referral. Vitaliy Kenzie Wilson DR: NAMRATA JOB#: [id number] CC:
--- NOTE | 2019-06-26 19:00 | NUR ---
RESPIRATORY NOTES: Received Patient on Mechanical Ventilator settings RR 16, VT 600, FIO2 35%, PEEP +0. 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 Patient is sleeping, showing no signs of distress. Bilateral rhonchi is heard throughout both lungs, in all lung wiseman. Suctioned a small amount of thick owens secretions through trache. Alarms are on and audible. Vent plugged into red outlet. Will continue to closely monitor throughout the day.
--- NOTE | 2019-06-26 19:06 | NUR ---
HAND-OFF: Report given to ODILIA Miranda.
--- NOTE | 2019-06-26 19:07 | NUR ---
NURSE NOTES: Received patient from ODILIA Milligan. Will continue plan of care.
[2019-06-26 20:00] VITALS: BP 110/58
--- NOTE | 2019-06-26 20:43 | Cardiology Progress Note ---
Assessment/Plan Assessment/Plan mobitz 1 2nd degree avb anemia chronic respiratory failure s/p sepsis short lived bardy likely related to vent no indication for pacing avoid neg chronotropic agents tele reviewed no recurrent Subjective ROS Limited/Unobtainable: Yes Objective Last 24 Hour Vital Signs Date Time Temp Pulse Resp B/P (MAP) Pulse Ox O2 Delivery O2 Flow Rate FiO2 06/26/19 20:00 98.5 66 16 110/58 (75) 99 06/26/19 20:00 35 06/26/19 20:00 Mechanical Ventilator 06/26/19 19:24 64 06/26/19 19:17 68 16 35 06/26/19 16:52 73 16 35 06/26/19 16:00 35 06/26/19 16:00 99.4 69 16 115/60 (78) 96 06/26/19 16:00 Mechanical Ventilator 06/26/19 15:44 101 06/26/19 15:00 106 23 35 06/26/19 13:24 79 16 35 06/26/19 12:00 Mechanical Ventilator 06/26/19 12:00 97.7 85 21 137/57 (83) 97 06/26/19 12:00 35 06/26/19 11:40 81 06/26/19 11:14 76 16 35 06/26/19 09:06 94 16 35 06/26/19 08:00 35 06/26/19 08:00 98.8 79 16 124/57 (79) 100 06/26/19 08:00 Mechanical Ventilator 06/26/19 07:40 80 06/26/19 06:50 81 16 35 06/26/19 04:51 84 16 35 06/26/19 04:00 86 06/26/19 04:00 35 06/26/19 04:00 Mechanical Ventilator 06/26/19 04:00 98.6 80 16 125/60 (81) 99 06/26/19 03:15 92 16 35 06/26/19 01:04 83 16 35 06/26/19 00:00 99.1 88 16 126/76 (93) 98 06/26/19 00:00 90 06/26/19 00:00 Mechanical Ventilator 06/25/19 22:40 89 16 35 06/25/19 20:59 81 16 35 General Appearance: no apparent distress, on vent, patient on isolation Intake and Output 06/25/19 06/26/19 19:00 07:00 Intake Total 487.5 ml 885.73 ml Output Total 900 ml 900 ml Balance -412.5 ml -14.27 ml IV Total 487.5 ml 575.73 ml Blood Product 250 ml Other 60 ml Output Urine Total 900 ml 900 ml Laboratory Tests Test 06/26/19 02:00 White Blood Count 7.9 K/UL (4.8-10.8) Red Blood Count 3.15 M/UL (4.70-6.10) L Hemoglobin 8.8 G/DL (14.2-18.0) L Hematocrit 26.5 % (42.0-52.0) L Mean Corpuscular Volume 84 FL (80-99) Mean Corpuscular Hemoglobin 28.1 PG (27.0-31.0) Mean Corpuscular Hemoglobin Concent 33.3 G/DL (32.0-36.0) Red Cell Distribution Width 15.0 % (11.6-14.8) H Platelet Count 205 K/UL (150-450) Mean Platelet Volume 9.2 FL (6.5-10.1) Neutrophils (%) (Auto) 74.7 % (45.0-75.0) Lymphocytes (%) (Auto) 10.9 % (20.0-45.0) L Monocytes (%) (Auto) 11.9 % (1.0-10.0) H Eosinophils (%) (Auto) 1.8 % (0.0-3.0) Basophils (%) (Auto) 0.8 % (0.0-2.0) Prothrombin Time 10.9 SEC (9.30-11.50) Prothromb Time International Ratio 1.0 (0.9-1.1) Activated Partial Thromboplast Time 47 SEC (23-33) H Sodium Level 133 MMOL/L (136-145) L Potassium Level 4.6 MMOL/L (3.5-5.1) Chloride Level 101 MMOL/L (98-107) Carbon Dioxide Level 28 MMOL/L (21-32) Anion Gap 4 mmol/L (5-15) L Blood Urea Nitrogen 16 mg/dL (7-18) Creatinine 1.0 MG/DL (0.55-1.30) Estimat Glomerular Filtration Rate > 60 mL/min (>60) Glucose Level 75 MG/DL (74-106) Calcium Level 8.4 MG/DL (8.5-10.1) L Javier Ponce MD Jun 26, 2019 20:43
[2019-06-26] MEDS: Phenytoin Susp 100mg/4ml GT SCH (21:26)
[2019-06-26] MEDS: Dyna-Hex 2% Top Sol 2oz TOPIC SCH (21:26)
[2019-06-27] VITALS (10 sets, daily range): BP systolic 76–155; BP diastolic 40–80
[2019-06-27 05:18] LABS: BASOPHILS % (AUTO) 0.9 % (0.0-2.0); EOSINOPHILS % (AUTO) 4.2 % (0.0-3.0); HEMATOCRIT 25.6 % (42.0-52.0); HEMOGLOBIN 8.3 G/DL (14.2-18.0); LYMPHOCYTES % (AUTO) 14.8 % (20.0-45.0); MEAN CORPUSCULAR VOLUME 85 FL (80-99); MONOCYTES % (AUTO) 17.3 % (1.0-10.0); NEUTROPHILS % (AUTO) 62.9 % (45.0-75.0); PLATELET COUNT 249 K/UL (150-450); WHITE BLOOD COUNT 7.5 K/UL (4.8-10.8)
[2019-06-27 05:22] LABS: ANION GAP 7 mmol/L (5-15); BLOOD UREA NITROGEN 13 mg/dL (7-18); CALCIUM 8.5 MG/DL (8.5-10.1); CARBON DIOXIDE 27 MMOL/L (21-32); CHLORIDE 102 MMOL/L (98-107); CREATININE 1.2 MG/DL (0.55-1.30); POTASSIUM 3.9 MMOL/L (3.5-5.1); SODIUM 136 MMOL/L (136-145)
[2019-06-27] MEDS: Sucralfate 1gm tab GT SCH ×3 (05:40→21:00)
[2019-06-27] MEDS: Phenytoin Susp 100mg/4ml GT SCH ×3 (05:40→21:00)
--- NOTE | 2019-06-27 06:01 | NUR ---
NURSE NOTES: Left urgent message to Dr. Wilson that the bottle of bowel prep was given before midnight, and there is still no clear bowel return as of 0600 this morning. Left call back number if there are any further instructions or orders needed for scheduled colonoscopy.
--- NOTE | 2019-06-27 06:30 | NUR ---
NURSE NOTES: Tap water enema one time done per Dr. Wilson.
--- NOTE | 2019-06-27 07:15 | NUR ---
HAND-OFF: Report given to ODILIA Monson.
--- NOTE | 2019-06-27 07:43 | NUR ---
RESPIRATORY NOTE: received pt on current vent settings. pt is trach with portex [address] secured via trach tie/guard. no resp distress noted and no visible redness or skin wounds. alarms are set and audible with ambu bag at bedside. will cont to monitor.
--- NOTE | 2019-06-27 07:43 | NUR ---
Late Entry (correct time 714): Pt received from Ruth Parikh RN in stable condition with no cardiopulmonary distress noted. Pt is awake in bed, non-verbal, trache to vent, Portex 8, AC 16 TV 600 FiO2 35% with no Peep. Pt is NPO and GT noted clamped pending colonoscopy procedure for today. Redness noted around GT site. F/C noted draining yellow urine. Skin alterations noted. Pt has a ALEXI PICC. Bed in lowest position, alarm on, side rails up x2 and padded per seizure precaution, call light within reach. Will continue to monitor.
[2019-06-27] MEDS ORDERED: Phenytoin 100mg cap ORAL SCH (09:00)
--- NOTE | 2019-06-27 09:29 | General Progress Note ---
Assessment/Plan Problem List: (1) Diabetes ICD Codes: E11.9 - Type 2 diabetes mellitus without complications SNOMED: 77422032 (2) HTN (hypertension) ICD Codes: I10 - Essential (primary) hypertension SNOMED: 40830701 (3) CVA (cerebral vascular accident) ICD Codes: I63.9 - Cerebral infarction, unspecified SNOMED: 807915546 (4) Severe protein-calorie malnutrition ICD Codes: E43 - Unspecified severe protein-calorie malnutrition SNOMED: 401067994 (5) Feeding by G-tube ICD Codes: Z93.1 - Gastrostomy status SNOMED: 457760588, 650097144 (6) Respiratory failure, twgvf-yr-kkhdeeg ICD Codes: J96.20 - Respiratory failure, xirqz-rd-yipiwyq SNOMED: 17525016 (7) Anemia ICD Codes: D64.9 - Anemia, unspecified SNOMED: 497871291 (8) Chronic respiratory failure ICD Codes: J96.10 - Chronic respiratory failure, unspecified whether with hypoxia or hypercapnia SNOMED: 68542841 (9) Septic shock ICD Codes: A41.9 - Sepsis, unspecified organism; R65.21 - Severe sepsis with septic shock SNOMED: 58235567 (10) Alzheimer's dementia ICD Codes: G30.9 - Alzheimer's disease, unspecified SNOMED: 07001756 (11) Severe sepsis ICD Codes: A41.9 - Sepsis, unspecified organism; R65.20 - Severe sepsis without septic shock SNOMED: 45060782 (12) Hypothyroidism ICD Codes: E03.9 - Hypothyroidism, unspecified SNOMED: 75720871 Status: unchanged Assessment/Plan: vent abx wean pressor cbc bmp am tranfuse prn ltach eval Subjective Constitutional: Reports: weakness Allergies: Coded Allergies: NO KNOWN DRUG ALLERGIES (Verified Allergy, Unknown, 09/11/16) All Systems: reviewed and negative except above Subjective trach vent altered Objective Last 24 Hour Vital Signs Date Time Temp Pulse Resp B/P (MAP) Pulse Ox O2 Delivery O2 Flow Rate FiO2 06/27/19 08:56 59 16 35 06/27/19 07:40 73 16 35 06/27/19 05:05 78 16 35 06/27/19 05:00 97.4 71 16 155/75 (101) 100 06/27/19 04:00 35 06/27/19 04:00 Mechanical Ventilator 06/27/19 03:38 76 06/27/19 03:20 75 16 35 06/27/19 01:20 74 16 35 06/27/19 00:00 Mechanical Ventilator 06/27/19 00:00 97.5 75 16 140/80 (100) 99 06/26/19 23:37 71 06/26/19 22:37 58 16 35 06/26/19 21:00 63 16 35 06/26/19 20:00 98.5 66 16 110/58 (75) 99 06/26/19 20:00 35 06/26/19 20:00 Mechanical Ventilator 06/26/19 19:24 64 06/26/19 19:17 68 16 35 06/26/19 16:52 73 16 35 06/26/19 16:00 35 06/26/19 16:00 99.4 69 16 115/60 (78) 96 06/26/19 16:00 Mechanical Ventilator 06/26/19 15:44 101 06/26/19 15:00 106 23 35 06/26/19 13:24 79 16 35 06/26/19 12:00 Mechanical Ventilator 06/26/19 12:00 97.7 85 21 137/57 (83) 97 06/26/19 12:00 35 06/26/19 11:40 81 06/26/19 11:14 76 16 35 Intake and Output 06/26/19 06/27/19 19:00 07:00 Intake Total 2780 ml 600 ml Output Total 1000 ml 1500 ml Balance 1780 ml -900 ml IV Total 720 ml 600 ml Other 2060 ml Output Urine Total 1000 ml 1500 ml # Bowel Movements 1 6 Laboratory Tests 06/27/19 04:00: White Blood Count 7.5, Red Blood Count 3.00L, Hemoglobin 8.3L, Hematocrit 25.6L , Mean Corpuscular Volume 85, Mean Corpuscular Hemoglobin 27.7, Mean Corpuscular Hemoglobin Concent 32.4, Red Cell Distribution Width 16.0H, Platelet Count 249, Mean Platelet Volume 8.8, Neutrophils (%) (Auto) 62.9, Lymphocytes (%) (Auto) 14.8L, Monocytes (%) (Auto) 17.3H, Eosinophils (%) (Auto ) 4.2H, Basophils (%) (Auto) 0.9, Sodium Level 136, Potassium Level 3.9, Chloride Level 102, Carbon Dioxide Level 27, Anion Gap 7, Blood Urea Nitrogen 13 , Creatinine 1.2, Estimat Glomerular Filtration Rate 59.9, Glucose Level 84, Calcium Level 8.5 06/27/19 04:30: Stool Occult Blood [Pending] Height (Feet): 5 Height (Inches): 8.00 Weight (Pounds): 192 General Appearance: lethargic EENT: normal ENT inspection Neck: normal alignment Cardiovascular: normal peripheral pulses, normal rate, regular rhythm Respiratory/Chest: chest wall non-tender, lungs clear, normal breath sounds Abdomen: normal bowel sounds, non tender, soft Extremities: normal inspection Edema: no edema noted Arm (L), no edema noted Arm (R), no edema noted Leg (L), no edema noted Leg (R), no edema noted Pedal (L), no edema noted Pedal (R), no edema noted Generalized Neurologic: motor weakness Skin: normal pigmentation, warm/dry Gato Viveros DO Jun 27, 2019 09:29
[2019-06-27] MEDS: Zinc Oxide Oint 2oz TOPIC SCH (09:46)
[2019-06-27] MEDS: Pantoprazole Inj IVP SCH ×2 (09:46→20:58)
[2019-06-27] MEDS: Levofloxacin 750mg tab GT SCH (09:48)
--- NOTE | 2019-06-27 10:08 | Pre-Procedure Note/Attestation ---
Pre-Procedure Note/Attestation Complete Prior to Procedure Planned Procedure: not applicable Procedure Narrative: colonoscopy Indications for Procedure Pre-Operative Diagnosis: GIB Attestation I attest that I discussed the nature of the procedure; its benefits; risks and complications; and alternatives (and the risks and benefits of such alternatives ), prior to the procedure, with the patient (or the patient's legal motor vehicle field representative). I attest that, if there was a reasonable possibility of needing a blood transfusion, the patient (or the patient's legal motor vehicle field representative) was given the [facility] standardized written summary, pursuant to the Mikel Fuad Blood Safety Act ([place] Health and Safety Code # 1645, as amended). I attest that I re-evaluated the patient just prior to the surgery and that there has been no change in the patient's H&P, except as documented below: Vitaliy Wilson MD Jun 27, 2019 10:08
--- NOTE | 2019-06-27 10:09 | General Progress Note ---
Assessment/Plan Problem List: (1) [facility] resident ICD Codes: Z59.3 - Problems related to living in residential institution SNOMED: 030820924 (2) GT SITE LEAKING (3) Alzheimer's dementia ICD Codes: G30.9 - Alzheimer's disease, unspecified SNOMED: 80563603 (4) Upper GI bleed ICD Codes: K92.2 - Upper gastrointestinal hemorrhage SNOMED: 85277822 (5) Severe erosive esophagitis (6) Malfunction of gastrostomy tube ICD Codes: K94.23 - Gastrostomy malfunction SNOMED: 725111792 (7) Chronic respiratory failure ICD Codes: J96.10 - Chronic respiratory failure, unspecified whether with hypoxia or hypercapnia SNOMED: 70158236 (8) Anemia ICD Codes: D64.9 - Anemia, unspecified SNOMED: 425965968 Status: unchanged Assessment/Plan: patient has active GIB no family to consent for colonoscopy>>> will plan with MD consent Subjective ROS Limited/Unobtainable: No Allergies: Coded Allergies: NO KNOWN DRUG ALLERGIES (Verified Allergy, Unknown, 09/11/16) Objective Last 24 Hour Vital Signs Date Time Temp Pulse Resp B/P (MAP) Pulse Ox O2 Delivery O2 Flow Rate FiO2 06/27/19 08:56 59 16 35 06/27/19 07:40 73 16 35 06/27/19 05:05 78 16 35 06/27/19 05:00 97.4 71 16 155/75 (101) 100 06/27/19 04:00 35 06/27/19 04:00 Mechanical Ventilator 06/27/19 03:38 76 06/27/19 03:20 75 16 35 06/27/19 01:20 74 16 35 06/27/19 00:00 Mechanical Ventilator 06/27/19 00:00 97.5 75 16 140/80 (100) 99 06/26/19 23:37 71 06/26/19 22:37 58 16 35 06/26/19 21:00 63 16 35 06/26/19 20:00 98.5 66 16 110/58 (75) 99 06/26/19 20:00 35 06/26/19 20:00 Mechanical Ventilator 06/26/19 19:24 64 06/26/19 19:17 68 16 35 06/26/19 16:52 73 16 35 06/26/19 16:00 35 06/26/19 16:00 99.4 69 16 115/60 (78) 96 06/26/19 16:00 Mechanical Ventilator 06/26/19 15:44 101 06/26/19 15:00 106 23 35 06/26/19 13:24 79 16 35 06/26/19 12:00 Mechanical Ventilator 06/26/19 12:00 97.7 85 21 137/57 (83) 97 06/26/19 12:00 35 06/26/19 11:40 81 06/26/19 11:14 76 16 35 Intake and Output 06/26/19 06/27/19 19:00 07:00 Intake Total 2780 ml 600 ml Output Total 1000 ml 1500 ml Balance 1780 ml -900 ml IV Total 720 ml 600 ml Other 2060 ml Output Urine Total 1000 ml 1500 ml # Bowel Movements 1 6 Laboratory Tests 06/27/19 04:00: White Blood Count 7.5, Red Blood Count 3.00L, Hemoglobin 8.3L, Hematocrit 25.6L , Mean Corpuscular Volume 85, Mean Corpuscular Hemoglobin 27.7, Mean Corpuscular Hemoglobin Concent 32.4, Red Cell Distribution Width 16.0H, Platelet Count 249, Mean Platelet Volume 8.8, Neutrophils (%) (Auto) 62.9, Lymphocytes (%) (Auto) 14.8L, Monocytes (%) (Auto) 17.3H, Eosinophils (%) (Auto ) 4.2H, Basophils (%) (Auto) 0.9, Sodium Level 136, Potassium Level 3.9, Chloride Level 102, Carbon Dioxide Level 27, Anion Gap 7, Blood Urea Nitrogen 13 , Creatinine 1.2, Estimat Glomerular Filtration Rate 59.9, Glucose Level 84, Calcium Level 8.5 06/27/19 04:30: Stool Occult Blood [Pending] Height (Feet): 5 Height (Inches): 8.00 Weight (Pounds): 192 General Appearance: no apparent distress EENT: normal ENT inspection Neck: supple Cardiovascular: normal rate Respiratory/Chest: decreased breath sounds Abdomen: normal bowel sounds, non tender, soft Extremities: non-tender Vitaliy Wilson MD Jun 27, 2019 10:09
[2019-06-27] MEDS ORDERED: DiphenhydrAMINE 50mg/ml Inj IVP PRN (10:15)
[2019-06-27] MEDS ORDERED: Atropine Sulfate 0.4mg/ml inj IVP PRN (10:15)
[2019-06-27] MEDS ORDERED: fentaNYL 100 mcg/2 mL IV PRN (10:15)
[2019-06-27] MEDS ORDERED: Midazolam 2mg/2ml Inj IVP PRN (10:15)
[2019-06-27] MEDS ORDERED: Propofol 200mg/20ml IV ONE (10:30)
--- NOTE | 2019-06-27 10:42 | NUR ---
NURSE NOTES: Dr. Wilson performing bedside colonoscopy procedure at this time accompanied by OR team.
--- NOTE | 2019-06-27 11:03 | NUR ---
NURSE NOTES: Pt completed colonoscopy procedure, pt is in stable condition with no signs of cardiopulmonary distress. Per Dr. Wilson, resume tube feeding.
--- NOTE | 2019-06-27 11:08 | Pulmonolgy Critical Care Note ---
Critical Care - Asmt/Plan Problems: (1) Septic shock (2) Pyelonephritis (3) Chronic respiratory failure (4) Alzheimer's dementia (5) Severe erosive esophagitis (6) Feeding by G-tube (7) Diabetes (8) CVA (cerebral vascular accident) Assessment/Plan: episode of bradycardia, which resolved spontaneously. Respiratory: monitor respiratory rate, adjust FIO2, CXR Cardiac: continue pressors, continue to monitor HR/BP Renal: F/U I&O Infectious Disease: check cultures Gastrointestinal: continue feedings/current rate Endocrine: monitor blood sugar Hematologic: monitor H/H, transfuse if hgb<8.5 Neurologic: PRN Ativan, keep patient comfortable Disposition: keep in ICU Notes Reviewed: couples therapist, 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 with: nurses, consultants, caser upmanager sap - Objective Last 24 Hour Vital Signs Date Time Temp Pulse Resp B/P (MAP) Pulse Ox O2 Delivery O2 Flow Rate FiO2 06/27/19 11:04 85 21 97 06/27/19 11:02 85 21 97 06/27/19 08:56 59 16 35 06/27/19 08:00 96.5 62 16 133/73 (93) 100 06/27/19 08:00 61 06/27/19 08:00 40 06/27/19 08:00 Mechanical Ventilator 06/27/19 07:40 73 16 35 06/27/19 05:05 78 16 35 06/27/19 05:00 97.4 71 16 155/75 (101) 100 06/27/19 04:00 35 06/27/19 04:00 Mechanical Ventilator 06/27/19 03:38 76 06/27/19 03:20 75 16 35 06/27/19 01:20 74 16 35 06/27/19 00:00 Mechanical Ventilator 06/27/19 00:00 97.5 75 16 140/80 (100) 99 06/26/19 23:37 71 06/26/19 22:37 58 16 35 06/26/19 21:00 63 16 35 06/26/19 20:00 98.5 66 16 110/58 (75) 99 06/26/19 20:00 35 06/26/19 20:00 Mechanical Ventilator 06/26/19 19:24 64 06/26/19 19:17 68 16 35 06/26/19 16:52 73 16 35 06/26/19 16:00 35 06/26/19 16:00 99.4 69 16 115/60 (78) 96 06/26/19 16:00 Mechanical Ventilator 06/26/19 15:44 101 06/26/19 15:00 106 23 35 06/26/19 13:24 79 16 35 06/26/19 12:00 Mechanical Ventilator 06/26/19 12:00 97.7 85 21 137/57 (83) 97 06/26/19 12:00 35 06/26/19 11:40 81 06/26/19 11:14 76 16 35 Status: awake Condition: critical HEENT: atraumatic Neck: full ROM Heart: HR/BP stable Abdomen: soft, non-tender Extremities: no C/C/E Critical Care - Subjective ROS Limited/Unobtainable: Yes Condition: critical EKG Rhythm: Sinus Rhythm FI02: 35 Vent Support Breath Rate: 16 Vent Support Mode: AC Vent Tidal Volume: 600 Sputum Amount: Small PEEP: 0.0 PIP: 32 Tube Feeding Amount: 35 I&O: Intake and Output 06/26/19 06/27/19 18:59 06:59 Intake Total 2780 ml 600 ml Output Total 800 ml 1700 ml Balance 1980 ml -1100 ml IV Total 720 ml 600 ml Other 2060 ml Output Urine Total 800 ml 1700 ml # Bowel Movements 7 Labs: Laboratory Tests Test 06/27/19 04:00 06/27/19 04:30 White Blood Count 7.5 K/UL (4.8-10.8) Red Blood Count 3.00 M/UL (4.70-6.10) L Hemoglobin 8.3 G/DL (14.2-18.0) L Hematocrit 25.6 % (42.0-52.0) L Mean Corpuscular Volume 85 FL (80-99) Mean Corpuscular Hemoglobin 27.7 PG (27.0-31.0) Mean Corpuscular Hemoglobin Concent 32.4 G/DL (32.0-36.0) Red Cell Distribution Width 16.0 % (11.6-14.8) H Platelet Count 249 K/UL (150-450) Mean Platelet Volume 8.8 FL (6.5-10.1) Neutrophils (%) (Auto) 62.9 % (45.0-75.0) Lymphocytes (%) (Auto) 14.8 % (20.0-45.0) L Monocytes (%) (Auto) 17.3 % (1.0-10.0) H Eosinophils (%) (Auto) 4.2 % (0.0-3.0) H Basophils (%) (Auto) 0.9 % (0.0-2.0) Sodium Level 136 MMOL/L (136-145) Potassium Level 3.9 MMOL/L (3.5-5.1) Chloride Level 102 MMOL/L (98-107) Carbon Dioxide Level 27 MMOL/L (21-32) Anion Gap 7 mmol/L (5-15) Blood Urea Nitrogen 13 mg/dL (7-18) Creatinine 1.2 MG/DL (0.55-1.30) Estimat Glomerular Filtration Rate 59.9 mL/min (>60) Glucose Level 84 MG/DL (74-106) Calcium Level 8.5 MG/DL (8.5-10.1) Stool Occult Blood Pending Huma Keating MD Jun 27, 2019 11:08
--- NOTE | 2019-06-27 11:09 | Endoscopy Procedure Note ---
Endoscopy Procedure Note General Indication for Procedure: gib Procedures Performed: colonoscopy Operative Findings/Diagnosis: diverticulosis Specimen: none Pt Tolerated Procedure Well: Yes Estimated Blood Loss: none Anesthesia Anesthesiologist: denita Anesthesia: MAC Inserted Devices Implant(s) used?: No GI Core Measures 50 yrs or older w/o bx or poly: Not Applicable 10yrs. F/U recommended: Not Applicable Vitaliy Wilson MD Jun 27, 2019 11:09
--- NOTE | 2019-06-27 11:17 | Nephrology Progress Note ---
Assessment/Plan Problem List: (1) Septic shock (2) Hypothyroidism (3) Upper GI bleed (4) Respiratory failure, darib-to-zwphggd (5) Anemia Assessment Sepsis Shock on pressors GI Bleed Low Na and high K UTI HypoThyroidism Tracheostomy dependence Respiratory failure, tagym-zd-buhanlp Alzheimer's Feeding by G-tube Plan consider transfusion off pressors- On Midodrine On GT feeding On Reglan fluid challenge as needed adjust IV fluids transfuse as needed Monitor lytes and renal parametrs urine studies per orders Subjective ROS Limited/Unobtainable: Yes Objective Objective Last 24 Hour Vital Signs Date Time Temp Pulse Resp B/P (MAP) Pulse Ox O2 Delivery O2 Flow Rate FiO2 06/27/19 11:04 85 21 97 06/27/19 11:02 85 21 97 06/27/19 08:56 59 16 35 06/27/19 08:00 96.5 62 16 133/73 (93) 100 06/27/19 08:00 61 06/27/19 08:00 40 06/27/19 08:00 Mechanical Ventilator 06/27/19 07:40 73 16 35 06/27/19 05:05 78 16 35 06/27/19 05:00 97.4 71 16 155/75 (101) 100 06/27/19 04:00 35 06/27/19 04:00 Mechanical Ventilator 06/27/19 03:38 76 06/27/19 03:20 75 16 35 06/27/19 01:20 74 16 35 06/27/19 00:00 Mechanical Ventilator 06/27/19 00:00 97.5 75 16 140/80 (100) 99 06/26/19 23:37 71 06/26/19 22:37 58 16 35 06/26/19 21:00 63 16 35 06/26/19 20:00 98.5 66 16 110/58 (75) 99 06/26/19 20:00 35 06/26/19 20:00 Mechanical Ventilator 06/26/19 19:24 64 06/26/19 19:17 68 16 35 06/26/19 16:52 73 16 35 06/26/19 16:00 35 06/26/19 16:00 99.4 69 16 115/60 (78) 96 06/26/19 16:00 Mechanical Ventilator 06/26/19 15:44 101 06/26/19 15:00 106 23 35 06/26/19 13:24 79 16 35 06/26/19 12:00 Mechanical Ventilator 06/26/19 12:00 97.7 85 21 137/57 (83) 97 06/26/19 12:00 35 06/26/19 11:40 81 Intake and Output 06/26/19 06/27/19 19:00 07:00 Intake Total 2780 ml 600 ml Output Total 1000 ml 1500 ml Balance 1780 ml -900 ml IV Total 720 ml 600 ml Other 2060 ml Output Urine Total 1000 ml 1500 ml # Bowel Movements 1 6 Laboratory Tests 06/27/19 04:00: White Blood Count 7.5, Red Blood Count 3.00L, Hemoglobin 8.3L, Hematocrit 25.6L , Mean Corpuscular Volume 85, Mean Corpuscular Hemoglobin 27.7, Mean Corpuscular Hemoglobin Concent 32.4, Red Cell Distribution Width 16.0H, Platelet Count 249, Mean Platelet Volume 8.8, Neutrophils (%) (Auto) 62.9, Lymphocytes (%) (Auto) 14.8L, Monocytes (%) (Auto) 17.3H, Eosinophils (%) (Auto ) 4.2H, Basophils (%) (Auto) 0.9, Sodium Level 136, Potassium Level 3.9, Chloride Level 102, Carbon Dioxide Level 27, Anion Gap 7, Blood Urea Nitrogen 13 , Creatinine 1.2, Estimat Glomerular Filtration Rate 59.9, Glucose Level 84, Calcium Level 8.5 06/27/19 04:30: Stool Occult Blood [Pending] Height (Feet): 5 Height (Inches): 8.00 Weight (Pounds): 192 General Appearance: no apparent distress Respiratory/Chest: decreased breath sounds Abdomen: soft Objective no change Sav Salvador MD Jun 27, 2019 11:17
--- NOTE | 2019-06-27 11:35 | Anethesia Preoperative Eval ---
Anesthesia Pre-op PMH/ROS General Date of Evaluation: Jun 27, 2019 Time of Evaluation: 10:33 Anesthesiologist: Ana Lilia Mitchell CRNA ASA Score: ASA 3 Mallampati Score Class I : Soft palate, uvula, fauces, pillars visible Class II: Soft palate, uvula, fauces visible Class III: Soft palate, base of uvula visible Class IV: Only hard plate visible Mallampati Classification: Class III Surgeon: Katie Diagnosis: anemia, GI bleeding Surgical Procedure: Colonosocopy Anesthesia History: none Family History: no anesthesia problems Allergies: Coded Allergies: NO KNOWN DRUG ALLERGIES (Verified Allergy, Unknown, 09/11/16) Patient NPO?: Yes NPO Date: Jun 27, 2019 NPO Time: 00:00 Past Medical History Cardiovascular: Reports: HTN, CAD, 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 Pulmonary: Reports: other - respiratory failure, trach/vent dependent, aspiration PNA; Denies: asthma, COPD, ILENE Gastrointestinal/Genitourinary: Denies: GERD, CRI, ESRD, other Neurologic/Psychiatric: Reports: dementia, CVA Endocrine: Reports: DM, hypothyroidism; Denies: steroids, other HEENT: Denies: cataract (L), cataract (R), glaucoma, RED CL[place] (L), RED CLIFF (R), other Hematology/Immune: Reports: anemia; Denies: DVT, bleeding disorder, other Musculoskeletal/Integumentary: Reports: other - non ambulatory, contractured; Denies: OA, RA, DJD, DDD, edema PMH Narrative: as noted above PSxH Narrative: see H & P Anesthesia Pre-op Phys. Exam Physician Exam Last Vital Signs Date Time Temp Pulse Resp B/P (MAP) Pulse Ox O2 Delivery O2 Flow Rate FiO2 06/27/19 11:18 61 16 35 06/27/19 11:04 97 06/27/19 08:00 96.5 133/73 (93) 06/27/19 08:00 Mechanical Ventilator Constitutional: NAD Cardiovascular: RRR Respiratory: other - trach in situ, rhonchi Gastrointestinal: S/NT/ND Airway Exam Mallampati Score: Class III MO: limited Neck: trach in situ TMD: > 3 FB ROM: limited Teeth: missing Dentures: no upper, no lower Anesthesia Pre-op A/P Labs Hematology Test 06/27/19 04:00 White Blood Count 7.5 K/UL (4.8-10.8) Red Blood Count 3.00 M/UL (4.70-6.10) L Hemoglobin 8.3 G/DL (14.2-18.0) L Hematocrit 25.6 % (42.0-52.0) L Mean Corpuscular Volume 85 FL (80-99) Mean Corpuscular Hemoglobin 27.7 PG (27.0-31.0) Mean Corpuscular Hemoglobin Concent 32.4 G/DL (32.0-36.0) Red Cell Distribution Width 16.0 % (11.6-14.8) H Platelet Count 249 K/UL (150-450) Mean Platelet Volume 8.8 FL (6.5-10.1) Neutrophils (%) (Auto) 62.9 % (45.0-75.0) Lymphocytes (%) (Auto) 14.8 % (20.0-45.0) L Monocytes (%) (Auto) 17.3 % (1.0-10.0) H Eosinophils (%) (Auto) 4.2 % (0.0-3.0) H Basophils (%) (Auto) 0.9 % (0.0-2.0) Chemistry Test 06/27/19 04:00 Sodium Level 136 MMOL/L (136-145) Potassium Level 3.9 MMOL/L (3.5-5.1) Chloride Level 102 MMOL/L (98-107) Carbon Dioxide Level 27 MMOL/L (21-32) Anion Gap 7 mmol/L (5-15) Blood Urea Nitrogen 13 mg/dL (7-18) Creatinine 1.2 MG/DL (0.55-1.30) Estimat Glomerular Filtration Rate 59.9 mL/min (>60) Glucose Level 84 MG/DL (74-106) Calcium Level 8.5 MG/DL (8.5-10.1) Ana Lilia Mitchell CRNA Jun 27, 2019 11:35
--- NOTE | 2019-06-27 11:37 | Immediate Post-Op Evaluation ---
Immediate Post-Op Evalulation Immediate Post-Op Evalulation Procedure: colonoscopy Date of Evaluation: Jun 27, 2019 Time of Evaluation: 10:59 IV Fluids: 0 Blood Pressure Systolic: 129 Blood Pressure Diastolic: 61 Pulse Rate: 56 Respiratory Rate: 16 - mechanical vent Rate 16, VT 600 35% O2 Sat by Pulse Oximetry: 98 Temperature (Fahrenheit): 97.4 Pain Score (1-10): 0 Nausea: No Vomiting: No Complications none Patient Status: reacts, ventilated Hydration Status: adequate Given Within 1 Hr of Incision: Ana Lilia Ward CRNA Jun 27, 2019 11:37
--- NOTE | 2019-06-27 11:43 | 48 Hour Post Anesthesia Eval ---
Post Anesthesia Evaluation Procedure: colonoscopy Date of Evaluation: Jun 27, 2019 Time of Evaluation: 11:41 Blood Pressure Systolic: 117 0: 57 Pulse Rate: 57 Respiratory Rate: 16 Temperature (Fahrenheit): 97.4 O2 Sat by Pulse Oximetry: 98 Airway: patent, other - trach in situ Nausea: No Vomiting: No Pain Intensity: 0 Hydration Status: adequate Cardiopulmonary Status: stable Mental Status/LOC: patient returned to baseline Follow-up Care/Observations: per hospitalist Post-Anesthesia Complications: none Follow-up care needed: N/A Ana Lilia Mitchell CRNA Jun 27, 2019 11:43
--- NOTE | 2019-06-27 11:57 | Hematology/Onc Progress Note ---
Assessment/Plan Assessment/Plan ASSESSMENT AND RECOMMENDATIONS # Anemia of chronic disease due to underlying chronic medical issues, multifactorial --> Anemia w/u has been reviewed and c/w acd ferritin 635, tibc 160 --> No evidence of hemolysis is noted, peripheral smear has been reviewed. --> Hgb goal >7. Transfuse prn. --> Epogen or iron at this time is not particularly indicated --> unable to obtain consent, with no family --> r/o hemolysis as well --> hgb 7.5-->8-->8.7-->8.2-->7.8-->8-->7.4-->8.8-->8.3 --> 06/26: EGD/COLO with diverticulosis --> spep is negative for bands # Leukocytosis. Likely related to underlying infection versus reactive process. patient with septic shock on admission --> Peripheral has been reviewed--> rouleaux formation on smear --> Medications have been reviewed --> Imaging has been reviewed. CXR shows Suboptimal positioning. No interval consolidation, overt edema or other acute cardiopulmonary findings. --> urine culture with ++uti on cultures provedencia --> Has been started on abx, empiric treatment (ertap/vanc)--> Levo --> wbc is 36-->26k-->9k # Thrombocytopenia decreased since admission --> plt count 190-->123k-->101k-->95k-->93k-->120k-->249k --> abx for id # Septic shock poa --> on abx per id --> initially on pressors, now off # Upper GI vomiting bleed in prior admission --> currently appears to have resolved # Trach and PEG --> chronic # Hyperkalemia --> as per renal # Dvt ppx heparin sq (ON HOLD for potential bleed) The timing of this note does not necessarily reflect the time of the patient was seen. Greatly appreciate consultation. Subjective HEENT: Denies: no symptoms, eye pain, blurred vision, tearing, double vision, ear pain, ear discharge, nose pain, nose congestion, throat pain, throat swelling, mouth pain, mouth swelling, other Cardiovascular: Denies: no symptoms, chest pain, edema, irregular heart rate, lightheadedness, palpitations, syncope, other Respiratory: Denies: no symptoms, cough, shortness of breath, SOB with excertion, SOB at rest, sputum, wheezing, other Gastrointestinal/Abdominal: Denies: no symptoms, abdomen distended, abdominal pain, black stools, tarry stools, blood in stool, constipated, diarrhea, difficulty swallowing, nausea, poor appetite, poor fluid intake, rectal bleeding , vomiting, other Genitourinary: Denies: no symptoms, burning, discharge, frequency, flank pain, hematuria, incontinence, pain, urgency, other Neurologic/Psychiatric: Denies: no symptoms, anxiety, depressed, emotional problems, headache, numbness, paresthesia, pre-existing deficit, seizure, tingling, tremors, weakness, other Endocrine: Denies: no symptoms, excessive sweating, flushing, intolerance to cold, intolerance to heat, increased hunger, increased thirst, increased urine, unexplained weight gain, unexplained weight loss, other Hematologic/Lymphatic: Denies: no symptoms, anemia, easy bleeding, easy bruising, adenopathy, other Allergies: Coded Allergies: NO KNOWN DRUG ALLERGIES (Verified Allergy, Unknown, 09/11/16) Subjective 06/17: blood transfusion completed, on low dose pressors, no bleeding noted 06/19: liya rn, no major events, cbc reviewed, tube feeds ongoing 06/22: no major changes, no bleeding or night sweats, on abx, in sariah 06/23: no f/c, no bleeding, labs noted, in sariah, hgb 8, plt 120k 06/24: labs reviewed, no bleeding, no night sweats, no bleeding 06/25: heparin held for potential bleed, gt is clamped, no events, no fc 06/26: for egd today with gi, bleeding noted, requiring prbc transf 06/27: gi procedure was done today and noted for diverticulosis, otherwise cbc stable Objective Objective Current Medications Medications (Trade) Dose Ordered Sig/Wanda Route PRN Reason Start Time Stop Time Status Last Admin Dose Admin Acetaminophen (Tylenol) 650 mg Q4H PRN GT fever (temp>100.5F) 06/19/19 04:00 07/14/19 03:59 Acetaminophen (Tylenol) 650 mg Q4H PRN ORAL Mild Pain (Pain Scale 1-3) 06/27/19 10:15 06/27/19 18:00 Al Hydroxide/Mg Hydroxide (Mylanta) 15 ml Q1H PRN ORAL gi upset 06/27/19 10:15 06/27/19 18:00 Atropine Sulfate (Atropine 0.4mg/ ml) 0.5 mg Q5M PRN IVP bpm less than 45 06/27/19 10:15 06/27/19 18:00 Chlorhexidine Gluconate (Jasmin-Hex 2%) 1 applic DAILY@2000 TOPIC 06/20/19 20:00 07/20/19 19:59 06/26/19 21:26 Dextrose 1,000 ml @ 50 mls/hr Q20H IV 06/19/19 03:15 07/18/19 12:59 06/27/19 11:41 Diphenhydramine HCl (Benadryl) 25 mg Q15M PRN IVP Itching 06/27/19 10:15 06/27/19 18:00 Fentanyl Citrate (Sublimaze 100 mcg/2 mL) 25 mcg Q10M PRN IV Moderate Pain (Pain Scale 4-6) 06/27/19 10:15 06/27/19 18:00 Hydralazine HCl (Apresoline) 5 mg Q30M PRN IV SBP>160 /DBP>90 06/27/19 10:15 06/27/19 18:00 Levofloxacin (Levaquin) 750 mg QOD GT 06/23/19 14:00 06/30/19 13:59 06/27/19 09:48 Levothyroxine Sodium (Synthroid) 88 mcg DAILY@0630 GT 06/22/19 06:30 07/20/19 06:29 06/27/19 05:41 Lorazepam (Ativan 2mg/ml 1ml) 2 mg Q4H PRN IVP For Seizures 06/26/19 15:30 07/03/19 15:29 06/26/19 15:38 Midazolam HCl (Versed 2mg/2ml vial) 1 mg Q15M PRN IVP For Anxiety 06/27/19 10:15 06/27/19 18:00 Midodrine (Pro-Amatine) 2.5 mg EVERY 8 HOURS GT 06/23/19 22:00 07/17/19 12:59 06/26/19 14:01 Ondansetron HCl (Zofran) 4 mg Q6H PRN IVP Nausea & Vomiting 06/19/19 08:30 07/14/19 14:29 Pantoprazole (Protonix) 40 mg EVERY 12 HOURS IVP 06/21/19 09:00 07/21/19 08:59 06/27/19 09:46 Phenytoin (Dilantin) 100 mg Q8HR GT 06/26/19 22:00 07/26/19 21:59 06/27/19 05:40 Polyethylene Glycol (Miralax) 17 gm DAILYPRN PRN GT Constipation 06/19/19 14:30 07/14/19 14:29 Sodium Chloride 1,000 ml @ 10 mls/hr Q24H IVLG 06/27/19 10:09 06/27/19 12:08 Sucralfate (Carafate) 1 gm EVERY 8 HOURS GT 06/23/19 22:00 07/21/19 08:59 06/27/19 05:40 Zinc Oxide (Zinc Oxide) 1 applic DAILY TOPIC 06/21/19 09:00 07/21/19 08:59 06/27/19 09:46 Last 24 Hour Vital Signs Date Time Temp Pulse Resp B/P (MAP) Pulse Ox O2 Delivery O2 Flow Rate FiO2 06/27/19 11:43 57 16 98 06/27/19 11:37 56 16 98 06/27/19 11:18 61 16 35 06/27/19 11:04 85 21 97 06/27/19 11:02 85 21 97 06/27/19 08:56 59 16 35 06/27/19 08:00 96.5 62 16 133/73 (93) 100 06/27/19 08:00 61 06/27/19 08:00 40 06/27/19 08:00 Mechanical Ventilator 06/27/19 07:40 73 16 35 06/27/19 05:05 78 16 35 06/27/19 05:00 97.4 71 16 155/75 (101) 100 06/27/19 04:00 35 06/27/19 04:00 Mechanical Ventilator 06/27/19 03:38 76 06/27/19 03:20 75 16 35 06/27/19 01:20 74 16 35 06/27/19 00:00 Mechanical Ventilator 06/27/19 00:00 97.5 75 16 140/80 (100) 99 06/26/19 23:37 71 06/26/19 22:37 58 16 35 06/26/19 21:00 63 16 35 06/26/19 20:00 98.5 66 16 110/58 (75) 99 06/26/19 20:00 35 06/26/19 20:00 Mechanical Ventilator 06/26/19 19:24 64 06/26/19 19:17 68 16 35 06/26/19 16:52 73 16 35 06/26/19 16:00 35 06/26/19 16:00 99.4 69 16 115/60 (78) 96 06/26/19 16:00 Mechanical Ventilator 06/26/19 15:44 101 06/26/19 15:00 106 23 35 06/26/19 13:24 79 16 35 06/26/19 12:00 Mechanical Ventilator 06/26/19 12:00 97.7 85 21 137/57 (83) 97 06/26/19 12:00 35 06/26/19 11:40 81 06/26/19 11:14 76 16 35 06/26/19 09:06 94 16 35 06/26/19 08:00 35 06/26/19 08:00 98.8 79 16 124/57 (79) 100 06/26/19 08:00 Mechanical Ventilator 06/26/19 07:40 80 06/26/19 06:50 81 16 35 06/26/19 04:51 84 16 35 06/26/19 04:00 86 06/26/19 04:00 35 06/26/19 04:00 Mechanical Ventilator 06/26/19 04:00 98.6 80 16 125/60 (81) 99 06/26/19 03:15 92 16 35 06/26/19 01:04 83 16 35 06/26/19 00:00 99.1 88 16 126/76 (93) 98 06/26/19 00:00 90 06/26/19 00:00 Mechanical Ventilator 06/25/19 22:40 89 16 35 06/25/19 20:59 81 16 35 06/25/19 20:00 35 06/25/19 20:00 Mechanical Ventilator 06/25/19 20:00 98.7 78 16 137/80 (99) 100 06/25/19 19:38 77 06/25/19 18:56 70 17 35 06/25/19 17:16 67 16 35 06/25/19 16:00 Mechanical Ventilator 06/25/19 16:00 67 06/25/19 16:00 35 06/25/19 16:00 96.4 62 16 141/95 (110) 100 06/25/19 15:08 72 17 35 06/25/19 13:05 69 16 35 06/25/19 12:00 73 06/25/19 12:00 Mechanical Ventilator 06/25/19 12:00 35 06/25/19 12:00 97.4 63 16 140/81 (100) 100 Intake and Output 06/26/19 06/27/19 18:59 06:59 Intake Total 2780 ml 600 ml Output Total 800 ml 1700 ml Balance 1980 ml -1100 ml IV Total 720 ml 600 ml Other 2060 ml Output Urine Total 800 ml 1700 ml # Bowel Movements 7 Labs Test 06/25/19 03:30 06/26/19 02:00 06/27/19 04:00 06/27/19 04:30 White Blood Count 7.6 K/UL (4.8-10.8) 7.9 K/UL (4.8-10.8) 7.5 K/UL (4.8-10.8) Red Blood Count 2.66 M/UL (4.70-6.10) 3.15 M/UL (4.70-6.10) 3.00 M/UL (4.70-6.10) Hemoglobin 7.4 G/DL (14.2-18.0) 8.8 G/DL (14.2-18.0) 8.3 G/DL (14.2-18.0) Hematocrit 22.6 % (42.0-52.0) 26.5 % (42.0-52.0) 25.6 % (42.0-52.0) Mean Corpuscular Volume 85 FL (80-99) 84 FL (80-99) 85 FL (80-99) Mean Corpuscular Hemoglobin 27.7 PG (27.0-31.0) 28.1 PG (27.0-31.0) 27.7 PG (27.0-31.0) Mean Corpuscular Hemoglobin Concent 32.6 G/DL (32.0-36.0) 33.3 G/DL (32.0-36.0) 32.4 G/DL (32.0-36.0) Red Cell Distribution Width 15.5 % (11.6-14.8) 15.0 % (11.6-14.8) 16.0 % (11.6-14.8) Platelet Count 169 K/UL (150-450) 205 K/UL (150-450) 249 K/UL (150-450) Mean Platelet Volume 9.7 FL (6.5-10.1) 9.2 FL (6.5-10.1) 8.8 FL (6.5-10.1) Neutrophils (%) (Auto) % (45.0-75.0) 74.7 % (45.0-75.0) 62.9 % (45.0-75.0) Lymphocytes (%) (Auto) % (20.0-45.0) 10.9 % (20.0-45.0) 14.8 % (20.0-45.0) Monocytes (%) (Auto) % (1.0-10.0) 11.9 % (1.0-10.0) 17.3 % (1.0-10.0) Eosinophils (%) (Auto) % (0.0-3.0) 1.8 % (0.0-3.0) 4.2 % (0.0-3.0) Basophils (%) (Auto) % (0.0-2.0) 0.8 % (0.0-2.0) 0.9 % (0.0-2.0) Differential Total Cells Counted 100 Neutrophils % (Manual) 74 % (45-75) Lymphocytes % (Manual) 12 % (20-45) Monocytes % (Manual) 12 % (1-10) Eosinophils % (Manual) 2 % (0-3) Basophils % (Manual) 0 % (0-2) Band Neutrophils 0 % (0-8) Platelet Estimate Adequate Platelet Morphology Normal Hypochromasia 3+ Anisocytosis 1+ Spherocytes 1+ Sodium Level 132 MMOL/L (136-145) 133 MMOL/L (136-145) 136 MMOL/L (136-145) Potassium Level 4.4 MMOL/L (3.5-5.1) 4.6 MMOL/L (3.5-5.1) 3.9 MMOL/L (3.5-5.1) Chloride Level 103 MMOL/L (98-107) 101 MMOL/L (98-107) 102 MMOL/L (98-107) Carbon Dioxide Level 27 MMOL/L (21-32) 28 MMOL/L (21-32) 27 MMOL/L (21-32) Anion Gap 3 mmol/L (5-15) 4 mmol/L (5-15) 7 mmol/L (5-15) Blood Urea Nitrogen 20 mg/dL (7-18) 16 mg/dL (7-18) 13 mg/dL (7-18) Creatinine 0.9 MG/DL (0.55-1.30) 1.0 MG/DL (0.55-1.30) 1.2 MG/DL (0.55-1.30) Estimat Glomerular Filtration Rate > 60 mL/min (>60) > 60 mL/min (>60) 59.9 mL/min (>60) Glucose Level 91 MG/DL (74-106) 75 MG/DL (74-106) 84 MG/DL (74-106) Calcium Level 8.5 MG/DL (8.5-10.1) 8.4 MG/DL (8.5-10.1) 8.5 MG/DL (8.5-10.1) Phosphorus Level 3.2 MG/DL (2.5-4.9) Magnesium Level 1.7 MG/DL (1.8-2.4) Prothrombin Time 10.9 SEC (9.30-11.50) Prothromb Time International Ratio 1.0 (0.9-1.1) Activated Partial Thromboplast Time 47 SEC (23-33) Stool Occult Blood Positive (NEGATIVE) Height (Feet): 5 Height (Inches): 8.00 Weight (Pounds): 192 Objective PHYSICAL EXAMINATION: VITAL SIGNS: Have been reviewed HEENT: Trach/vent site ++ CHEST: Bibasilar rales CV: Regular rate and rhythm. GI: Positive bowel sounds. G-tube++ EXTREMITIES: + edema. NEUROLOGICAL: Reflexes equal on both sides. Nikos Nath MD Jun 27, 2019 11:57
--- NOTE | 2019-06-27 16:38 | Infectious Diseases Prog Note ---
Assessment/Plan Assessment/Plan Mr. Huffman is a 68 yo male with PMHx of of chronic resp failure trach/vent dependant, diffuse ulcerative esophagitis, peptic esophageal stricture, asthma, GERD, Dm2, CVA/TIA w/ hemiplegia, functional quadriplegia, CAD, CHF, ESBL UTI , GIB s/p multiple EGDs in the past, schizoaffective disorder, Dementia, hypothyroidism, malnutrition, non verbal, infected obstuctive ureterolithiasis/ w abscess s/p L NT palced 12/2018, encephalopathy, Alzheimer's disease, multiple admissions, subacute facility resident who was sent to the for hypotension and bradycardia. Septic Shock- likely 2ry to UTI and PNA- off pressors now off perssors now Hx of resistant infections 06/23 CXR; Bilateral right greater than left pleural effusions are again demonstrated. Bilateral interstitial and airspace edema persists, unchanged Urine Cx 06/14/19 - >100k ESBL P, stuarti, ESBL P mirabilis (both S Ertapenem , ZOsyn) Blood Cx - NTD CXR show probable pna sp cx PsA (R imipenem, I levaquin), S. maltophila (S bactrim, levaquin) GT leakage with cellulitis -wound cx MDR/CRE K.pna, MDR PsA (colonizers) Leukocytosis; SP Hypothermia; SP Chronic resp failure trach/vent dependant asthma Dm2 CVA/TIA w/ hemiplegia Functional quadriplegia CAD CHF GIB s/p multiple EGDs in the past Schizoaffective disorder Dementia Hypothyroidism Non verbal Alzheimer's disease PLAN: -Cont PO Levaquin #5/5 for S. maltophila -06/24 SP IV Amikacin #10 -06/23 SP Ertapenem #9 and IV Vancomycin #9 -10/ SP PO Vancomycin #3 -10/ SP Flagyl #2 - monitor CBC and Temps -wound care per hospital protocol -GI f/u Thank you for this consult. [facility] will continue to follow the patient with you during this hospitalization. Subjective Allergies: Coded Allergies: NO KNOWN DRUG ALLERGIES (Verified Allergy, Unknown, 09/11/16) Subjective afebrile no leukocytosis Objective Vital Signs Last 24 Hour Vital Signs Date Time Temp Pulse Resp B/P (MAP) Pulse Ox O2 Delivery O2 Flow Rate FiO2 06/27/19 16:00 Mechanical Ventilator 06/27/19 16:00 68 06/27/19 16:00 96.4 66 16 128/72 (90) 96 06/27/19 16:00 35 06/27/19 15:11 70 16 35 06/27/19 13:14 67 16 35 06/27/19 12:00 73 06/27/19 12:00 Mechanical Ventilator 06/27/19 12:00 35 06/27/19 12:00 97.3 61 16 112/55 (74) 100 06/27/19 11:43 57 16 98 06/27/19 11:37 56 16 98 06/27/19 11:18 61 16 35 06/27/19 11:04 85 21 97 06/27/19 11:02 85 21 97 06/27/19 08:56 59 16 35 06/27/19 08:00 96.5 62 16 133/73 (93) 100 06/27/19 08:00 61 06/27/19 08:00 40 06/27/19 08:00 Mechanical Ventilator 06/27/19 07:40 73 16 35 06/27/19 05:05 78 16 35 06/27/19 05:00 97.4 71 16 155/75 (101) 100 06/27/19 04:00 35 06/27/19 04:00 Mechanical Ventilator 06/27/19 03:38 76 06/27/19 03:20 75 16 35 06/27/19 01:20 74 16 35 06/27/19 00:00 Mechanical Ventilator 06/27/19 00:00 97.5 75 16 140/80 (100) 99 06/26/19 23:37 71 06/26/19 22:37 58 16 35 06/26/19 21:00 63 16 35 06/26/19 20:00 98.5 66 16 110/58 (75) 99 06/26/19 20:00 35 06/26/19 20:00 Mechanical Ventilator 06/26/19 19:24 64 06/26/19 19:17 68 16 35 06/26/19 16:52 73 16 35 Height (Feet): 5 Height (Inches): 8.00 Weight (Pounds): 192 Objective Gen: On vent in IVU HEENT: NCAT, MMM, PERRL, No Oral lesion, no scleral icterus NECK: supple, No LAD, No JVD, Trached LUNGS: Coarse B/L, No W/C CARDS: RRR, S1, S2, No M/R/G, ABD: Soft, NT, ND, No R/G, + BS, No HSM, No Masses, PEG : Deferred Ext: C/C/E, Pulses 2+ B/L (DP, Rad): NEURO: A/O x 0, no following SKIN: Warm/dry, No rashes Laboratory Tests Test 06/27/19 04:00 06/27/19 04:30 White Blood Count 7.5 K/UL (4.8-10.8) Red Blood Count 3.00 M/UL (4.70-6.10) L Hemoglobin 8.3 G/DL (14.2-18.0) L Hematocrit 25.6 % (42.0-52.0) L Mean Corpuscular Volume 85 FL (80-99) Mean Corpuscular Hemoglobin 27.7 PG (27.0-31.0) Mean Corpuscular Hemoglobin Concent 32.4 G/DL (32.0-36.0) Red Cell Distribution Width 16.0 % (11.6-14.8) H Platelet Count 249 K/UL (150-450) Mean Platelet Volume 8.8 FL (6.5-10.1) Neutrophils (%) (Auto) 62.9 % (45.0-75.0) Lymphocytes (%) (Auto) 14.8 % (20.0-45.0) L Monocytes (%) (Auto) 17.3 % (1.0-10.0) H Eosinophils (%) (Auto) 4.2 % (0.0-3.0) H Basophils (%) (Auto) 0.9 % (0.0-2.0) Sodium Level 136 MMOL/L (136-145) Potassium Level 3.9 MMOL/L (3.5-5.1) Chloride Level 102 MMOL/L (98-107) Carbon Dioxide Level 27 MMOL/L (21-32) Anion Gap 7 mmol/L (5-15) Blood Urea Nitrogen 13 mg/dL (7-18) Creatinine 1.2 MG/DL (0.55-1.30) Estimat Glomerular Filtration Rate 59.9 mL/min (>60) Glucose Level 84 MG/DL (74-106) Calcium Level 8.5 MG/DL (8.5-10.1) Stool Occult Blood Positive (NEGATIVE) Current Medications Medications (Trade) Dose Ordered Sig/Wanda Route PRN Reason Start Time Stop Time Status Last Admin Dose Admin Acetaminophen (Tylenol) 650 mg Q4H PRN GT fever (temp>100.5F) 06/19/19 04:00 07/14/19 03:59 Acetaminophen (Tylenol) 650 mg Q4H PRN ORAL Mild Pain (Pain Scale 1-3) 06/27/19 10:15 06/27/19 18:00 Al Hydroxide/Mg Hydroxide (Mylanta) 15 ml Q1H PRN ORAL gi upset 06/27/19 10:15 06/27/19 18:00 Atropine Sulfate (Atropine 0.4mg/ ml) 0.5 mg Q5M PRN IVP bpm less than 45 06/27/19 10:15 06/27/19 18:00 Chlorhexidine Gluconate (Jasmin-Hex 2%) 1 applic DAILY@2000 TOPIC 06/20/19 20:00 07/20/19 19:59 06/26/19 21:26 Dextrose 1,000 ml @ 50 mls/hr Q20H IV 06/19/19 03:15 07/18/19 12:59 06/27/19 11:41 Diphenhydramine HCl (Benadryl) 25 mg Q15M PRN IVP Itching 06/27/19 10:15 06/27/19 18:00 Fentanyl Citrate (Sublimaze 100 mcg/2 mL) 25 mcg Q10M PRN IV Moderate Pain (Pain Scale 4-6) 06/27/19 10:15 06/27/19 18:00 Hydralazine HCl (Apresoline) 5 mg Q30M PRN IV SBP>160 /DBP>90 06/27/19 10:15 06/27/19 18:00 Levofloxacin (Levaquin) 750 mg QOD GT 06/23/19 14:00 06/30/19 13:59 06/27/19 09:48 Levothyroxine Sodium (Synthroid) 88 mcg DAILY@0630 GT 06/22/19 06:30 07/20/19 06:29 06/27/19 05:41 Lorazepam (Ativan 2mg/ml 1ml) 2 mg Q4H PRN IVP For Seizures 06/26/19 15:30 07/03/19 15:29 06/26/19 15:38 Midazolam HCl (Versed 2mg/2ml vial) 1 mg Q15M PRN IVP For Anxiety 06/27/19 10:15 06/27/19 18:00 Midodrine (Pro-Amatine) 2.5 mg EVERY 8 HOURS GT 06/23/19 22:00 07/17/19 12:59 06/26/19 14:01 Ondansetron HCl (Zofran) 4 mg Q6H PRN IVP Nausea & Vomiting 06/19/19 08:30 07/14/19 14:29 Pantoprazole (Protonix) 40 mg EVERY 12 HOURS IVP 06/21/19 09:00 07/21/19 08:59 06/27/19 09:46 Phenytoin (Dilantin) 100 mg Q8HR GT 06/26/19 22:00 07/26/19 21:59 06/27/19 13:24 Polyethylene Glycol (Miralax) 17 gm DAILYPRN PRN GT Constipation 06/19/19 14:30 07/14/19 14:29 Sucralfate (Carafate) 1 gm EVERY 8 HOURS GT 06/23/19 22:00 07/21/19 08:59 06/27/19 13:24 Zinc Oxide (Zinc Oxide) 1 applic DAILY TOPIC 06/21/19 09:00 07/21/19 08:59 06/27/19 09:46 Lisy Lai M.D. Jun 27, 2019 16:38
--- NOTE | 2019-06-27 16:45 | NUR ---
Temp noted to be 95.5 F. Pt covered with Joan Hugger.
[2019-06-27] MEDS: LORazepam Inj 2mg/ml 1ml IVP PRN (16:46)
--- NOTE | 2019-06-27 16:46 | NUR ---
NURSE NOTES: Pt given Ativan (see eMAR) for frequent seizure activity. See seizure assessments.
--- NOTE | 2019-06-27 17:07 | Surgery Progress Note ---
Surgery Progress Note Subjective Symptoms: other Objective Last 24 Hour Vital Signs Date Time Temp Pulse Resp B/P (MAP) Pulse Ox O2 Delivery O2 Flow Rate FiO2 06/27/19 16:36 61 16 35 06/27/19 16:00 Mechanical Ventilator 06/27/19 16:00 68 06/27/19 16:00 96.4 66 16 128/72 (90) 96 06/27/19 16:00 35 06/27/19 15:11 70 16 35 06/27/19 13:14 67 16 35 06/27/19 12:00 73 06/27/19 12:00 Mechanical Ventilator 06/27/19 12:00 35 06/27/19 12:00 97.3 61 16 112/55 (74) 100 06/27/19 11:43 57 16 98 06/27/19 11:37 56 16 98 06/27/19 11:18 61 16 35 06/27/19 11:04 85 21 97 06/27/19 11:02 85 21 97 06/27/19 08:56 59 16 35 06/27/19 08:00 96.5 62 16 133/73 (93) 100 06/27/19 08:00 61 06/27/19 08:00 40 06/27/19 08:00 Mechanical Ventilator 06/27/19 07:40 73 16 35 06/27/19 05:05 78 16 35 06/27/19 05:00 97.4 71 16 155/75 (101) 100 06/27/19 04:00 35 06/27/19 04:00 Mechanical Ventilator 06/27/19 03:38 76 06/27/19 03:20 75 16 35 06/27/19 01:20 74 16 35 06/27/19 00:00 Mechanical Ventilator 06/27/19 00:00 97.5 75 16 140/80 (100) 99 06/26/19 23:37 71 06/26/19 22:37 58 16 35 06/26/19 21:00 63 16 35 06/26/19 20:00 98.5 66 16 110/58 (75) 99 06/26/19 20:00 35 06/26/19 20:00 Mechanical Ventilator 06/26/19 19:24 64 06/26/19 19:17 68 16 35 I&O Intake and Output 06/26/19 06/27/19 18:59 06:59 Intake Total 2780 ml 600 ml Output Total 800 ml 1700 ml Balance 1980 ml -1100 ml IV Total 720 ml 600 ml Other 2060 ml Output Urine Total 800 ml 1700 ml # Bowel Movements 7 Dressing: saturated Wound: clean Cardiovascular: RSR Respiratory: decreased breath sounds Abdomen: soft, present bowel sounds Extremities: no tenderness, no cyanosis Laboratory Tests Test 06/27/19 04:00 06/27/19 04:30 White Blood Count 7.5 K/UL (4.8-10.8) Red Blood Count 3.00 M/UL (4.70-6.10) L Hemoglobin 8.3 G/DL (14.2-18.0) L Hematocrit 25.6 % (42.0-52.0) L Mean Corpuscular Volume 85 FL (80-99) Mean Corpuscular Hemoglobin 27.7 PG (27.0-31.0) Mean Corpuscular Hemoglobin Concent 32.4 G/DL (32.0-36.0) Red Cell Distribution Width 16.0 % (11.6-14.8) H Platelet Count 249 K/UL (150-450) Mean Platelet Volume 8.8 FL (6.5-10.1) Neutrophils (%) (Auto) 62.9 % (45.0-75.0) Lymphocytes (%) (Auto) 14.8 % (20.0-45.0) L Monocytes (%) (Auto) 17.3 % (1.0-10.0) H Eosinophils (%) (Auto) 4.2 % (0.0-3.0) H Basophils (%) (Auto) 0.9 % (0.0-2.0) Sodium Level 136 MMOL/L (136-145) Potassium Level 3.9 MMOL/L (3.5-5.1) Chloride Level 102 MMOL/L (98-107) Carbon Dioxide Level 27 MMOL/L (21-32) Anion Gap 7 mmol/L (5-15) Blood Urea Nitrogen 13 mg/dL (7-18) Creatinine 1.2 MG/DL (0.55-1.30) Estimat Glomerular Filtration Rate 59.9 mL/min (>60) Glucose Level 84 MG/DL (74-106) Calcium Level 8.5 MG/DL (8.5-10.1) Stool Occult Blood Positive (NEGATIVE) Plan Problems: (1) Severe protein-calorie malnutrition Assessment & Plan: DAILY ESTIMATED NEEDS: Needs based on Critical care, underweight TF RECYCLING ATTENDANT 56.8 30-35 kcals/kg 5677-7025 total kcals 1.25-2 g protein/kg 71-113.6 g total protein 25-30 mL/kg 8496-4988 total fluid mLs NUTRITION DIAGNOSIS: * Increased kcal/prot intake needs R/T sepsis and underweight status as evidenced by pt adm w/ critically elev WBC (35.7*), febrile, @68% [place] Body Weight. * Swallowing difficulty R/T respiratory status as evidenced by pt vent dep via trach, PEG dep. ENTERAL NUTRITION RECOMMENDATIONS: Nepro @45mL/hr x 22hr to provide 990mL, 1782kcal, 80g pro, 720mL free water -When Hemodynamically stable, start Nepro @ 15mL/hr for 6 hrs. -Advance as tolerated 10mL q 4-6 hrs to goal. -TF @goal meets 100% est needs. -Flush per MD/ HOB >30 degrees. ADDITIONAL RECOMMENDATIONS: * Calibrated bedscale weight for accurate CBW + weekly wt monitoring * Per [facility]: Ht of 6'1", Wt 125# (05/2019) * TF recs as above when medically stable * Monitor for cont'd need of renal formula (K 5.5) * Monitor lytes and hydration status. (2) Feeding by G-tube Assessment & Plan: g tube changed s/p scope results pending (3) Respiratory failure, [id number] (4) Septic shock Assessment & Plan: hypotensive - improved tachycardic - improved labs as above improving PICC line placed And central line removed will follow with recs thank you (5) Severe sepsis (6) GT SITE LEAKING Assessment & Plan: Patient identified worsening G-tube site leakage and cellulitis. This has been noted on prior admissions which is cared for. Plan for placement as below Pt presents with contractures. Skin erosions to abdominal region, and multiple areas of non-blanching erythema. Skin erosion noted to abdomen extending around GT and mostly to L abdominal area, skin is grossly red and excoriated. Furuncle noted to L flank oozing moderate amt purulent exudate. Non-blanchable erythema without fluctuance noted to L lateral malleolus (L) 1.5cm x (W)3cm. Non-blanchable erythema without fluctuance noted to lateral L foot (L)1cm x (W) 1cm. Non-blanchable erythema noted to sacral cleft. No other skin concerns noted. Tx.Plan: Apply Zinc Oxide Paste to GT site and excoriated areas on abd daily and prn. Apply Betadine to Boil L flank Daily .Cover with Optifoam drsg. Change daily and prn. Apply Moisture Barrier Paste to sacrum. Cover with Optifoam drsg. Change every 3 days and prn. Apply Cavilon to Non-blanchable areas L foot and bilat heels. Cover each site with Optifoam drsg. Change every 7 days and prn. Reposition at least every 2hours or as tolerated. Place pillow between knees. Off-load heels with pillow. APM/RENO Mattress overlay. Quirino Bernard Jun 27, 2019 17:07
--- NOTE | 2019-06-27 18:59 | NUR ---
NURSE NOTES: HR noted to be 49-54 bpm. Left message for Dr. Ponce and Dr. Viveros. Awaiting call back.
--- NOTE | 2019-06-27 19:12 | NUR ---
HAND-OFF: Report given to ODILIA Miranda. Pt in stable condition (HR currently 49). Dr. Ponce is aware and no new orders placed. Ruth will continue to monitor pt.
--- NOTE | 2019-06-27 19:19 | NUR ---
NURSE NOTES: Received patient from ODILIA Monson. Will continue plan of care.
--- NOTE | 2019-06-27 19:34 | NUR ---
NURSE NOTES: Dr. Ponce just came in to see pt and is now at bedside.
--- NOTE | 2019-06-27 19:35 | NUR ---
NURSE NOTES: Dr. Ponce is present and made aware that patient is bradycardic at 55bpm. He reviewed the rhythm on the monitor and stated that he is sinus and that as long as patient is sinus it is okay. Will monitor.
--- NOTE | 2019-06-27 19:52 | Cardiology Progress Note ---
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 anemia chronic respiratory failure s/p sepsis sinur chau no symptoms with sinu chau no indication for pacing avoid neg chronotropic agents tele reviewed tsh 5.87 earlier this month no med identified to cause d/w rn Subjective ROS Limited/Unobtainable: Yes Objective Last 24 Hour Vital Signs Date Time Temp Pulse Resp B/P (MAP) Pulse Ox O2 Delivery O2 Flow Rate FiO2 06/27/19 16:36 61 16 35 06/27/19 16:00 Mechanical Ventilator 06/27/19 16:00 68 06/27/19 16:00 96.4 66 16 128/72 (90) 96 06/27/19 16:00 35 06/27/19 15:11 70 16 35 06/27/19 13:14 67 16 35 06/27/19 12:00 73 06/27/19 12:00 Mechanical Ventilator 06/27/19 12:00 35 06/27/19 12:00 97.3 61 16 112/55 (74) 100 06/27/19 11:43 57 16 98 06/27/19 11:37 56 16 98 06/27/19 11:18 61 16 35 06/27/19 11:04 85 21 97 06/27/19 11:02 85 21 97 06/27/19 08:56 59 16 35 06/27/19 08:00 96.5 62 16 133/73 (93) 100 06/27/19 08:00 61 06/27/19 08:00 40 06/27/19 08:00 Mechanical Ventilator 06/27/19 07:40 73 16 35 06/27/19 05:05 78 16 35 06/27/19 05:00 97.4 71 16 155/75 (101) 100 06/27/19 04:00 35 06/27/19 04:00 Mechanical Ventilator 06/27/19 03:38 76 06/27/19 03:20 75 16 35 06/27/19 01:20 74 16 35 06/27/19 00:00 Mechanical Ventilator 06/27/19 00:00 97.5 75 16 140/80 (100) 99 06/26/19 23:37 71 06/26/19 22:37 58 16 35 06/26/19 21:00 63 16 35 06/26/19 20:00 98.5 66 16 110/58 (75) 99 06/26/19 20:00 35 06/26/19 20:00 Mechanical Ventilator General Appearance: on vent, patient on isolation Intake and Output 06/26/19 06/27/19 19:00 07:00 Intake Total 2780 ml 600 ml Output Total 1000 ml 1500 ml Balance 1780 ml -900 ml IV Total 720 ml 600 ml Other 2060 ml Output Urine Total 1000 ml 1500 ml # Bowel Movements 1 6 Laboratory Tests Test 06/27/19 04:00 06/27/19 04:30 White Blood Count 7.5 K/UL (4.8-10.8) Red Blood Count 3.00 M/UL (4.70-6.10) L Hemoglobin 8.3 G/DL (14.2-18.0) L Hematocrit 25.6 % (42.0-52.0) L Mean Corpuscular Volume 85 FL (80-99) Mean Corpuscular Hemoglobin 27.7 PG (27.0-31.0) Mean Corpuscular Hemoglobin Concent 32.4 G/DL (32.0-36.0) Red Cell Distribution Width 16.0 % (11.6-14.8) H Platelet Count 249 K/UL (150-450) Mean Platelet Volume 8.8 FL (6.5-10.1) Neutrophils (%) (Auto) 62.9 % (45.0-75.0) Lymphocytes (%) (Auto) 14.8 % (20.0-45.0) L Monocytes (%) (Auto) 17.3 % (1.0-10.0) H Eosinophils (%) (Auto) 4.2 % (0.0-3.0) H Basophils (%) (Auto) 0.9 % (0.0-2.0) Sodium Level 136 MMOL/L (136-145) Potassium Level 3.9 MMOL/L (3.5-5.1) Chloride Level 102 MMOL/L (98-107) Carbon Dioxide Level 27 MMOL/L (21-32) Anion Gap 7 mmol/L (5-15) Blood Urea Nitrogen 13 mg/dL (7-18) Creatinine 1.2 MG/DL (0.55-1.30) Estimat Glomerular Filtration Rate 59.9 mL/min (>60) Glucose Level 84 MG/DL (74-106) Calcium Level 8.5 MG/DL (8.5-10.1) Stool Occult Blood Positive (NEGATIVE) Javier Ponce MD Jun 27, 2019 19:52
--- NOTE | 2019-06-27 19:55 | NUR ---
HAND-OFF: Report given to ODILIA Haq.
--- NOTE | 2019-06-27 19:56 | NUR ---
NURSE NOTES: Received report from Ruth HARTLEY, pt. in bed awake, no signs or symptoms of acute cardiac or respiratory distress noted, bed in lowest position and call light within easy reach, bed alarm on, side rails up x's 3 an safety brakes engaged, pt appears to be tolerating current vent settings well- AC 16, TV 600 and FIo2 at 35%- no distress noted, Osmolite 1.2 running via G tube at 55cc/hr- no residual noted, G tube intact and patent, ALEXI PICC running D5W at 50cc/hr, Victor intact and draining to gravity, Safety measures continued, will continue with plan of care. Addendum: 06/27/19 at 2004 by ANDREA BELLE RN RN correction to message feeding is running at 40cc/hr- not 55cc/hr- Goal is 55cc/hr- will continue to monitor feedings.
--- NOTE | 2019-06-27 20:16 | NUR ---
NURSE NOTES: called DR. Walker and made him aware pt. has b/p 78/43 and 79/42- per doctor to give one time bolus of NS 250cc- orders carried out-will continue to monitor pt.
--- NOTE | 2019-06-27 20:27 | NUR ---
NURSE NOTES: called pharmacist spoke with Robby regarding 250cc NS unable to scan as it shows bag is over by 25cc- per Robby okay to put in [place] code to bypass.
[2019-06-27] MEDS ORDERED: NS 250 ML IVPB ONE (20:30)
[2019-06-27] MEDS: Dyna-Hex 2% Top Sol 2oz TOPIC SCH (20:58)
--- NOTE | 2019-06-27 21:04 | NUR ---
NURSE NOTES: reassessed b/p after administering bolus- b/p now 76/40 and heart rate 61- just administered ProAmatine- will reassess b/p in an hour and notify DR. Walker of results.
--- NOTE | 2019-06-27 21:52 | NUR ---
NURSE NOTES: left message to call back for DR. Walker regarding pts b/p after bolus given and ProAmatine- now b/p 94/43 and pulse 63- awaiting for call back from doctor.
--- NOTE | 2019-06-27 22:30 | NUR ---
NURSE NOTES: reassessed pts b/p no w 113/50 and heart rate 67- b/p trending up- pt. remains stable and no distress noted- will continue to monitor pt. and with plan of care.
[2019-06-28] VITALS (8 sets, daily range): BP systolic 90–111; BP diastolic 46–62
[2019-06-28] MEDS: Sucralfate 1gm tab GT SCH ×3 (05:00→21:00)
[2019-06-28] MEDS: Phenytoin Susp 100mg/4ml GT SCH ×3 (05:00→21:00)
--- NOTE | 2019-06-28 05:59 | NUR ---
RESPIRATORY NOTE: Received pt. on 840 vent. Vent settings are: A/C rate of 16, 600, FI02 35%.AMBU bag @ BS. No respiratory distress noted, pt. sP02 @ 100%. Vent plugged on red outlet and is connected to external alarm. Will continue to monitor pt.
[2019-06-28 06:22] LABS: HEMATOCRIT 21.6 % (42.0-52.0); MEAN CORPUSCULAR VOLUME 87 FL (80-99); PLATELET COUNT 245 K/UL (150-450); RED BLOOD COUNT 2.49 M/UL (4.70-6.10); RED CELL DISTRIBUTION WIDTH 15.8 % (11.6-14.8); WHITE BLOOD COUNT 6.9 K/UL (4.8-10.8)
[2019-06-28 06:46] LABS: ANION GAP 9 mmol/L (5-15); BLOOD UREA NITROGEN 13 mg/dL (7-18); CALCIUM 7.7 MG/DL (8.5-10.1); CARBON DIOXIDE 24 MMOL/L (21-32); CHLORIDE 100 MMOL/L (98-107); CREATININE 1.3 MG/DL (0.55-1.30); POTASSIUM 3.7 MMOL/L (3.5-5.1); SODIUM 133 MMOL/L (136-145)
--- NOTE | 2019-06-28 07:24 | NUR ---
HAND-OFF: Report given to Deborah Rn, pt. remains stable and no signs of distress noted- nurse aware to f/u on abnormal am labs.
--- NOTE | 2019-06-28 07:25 | NUR ---
NURSE NOTES: Received patient in bed. In no apparent distress at this time. Vent dependent. On GTF per order. Contact isolation observed. Will continue plan of care.
--- NOTE | 2019-06-28 07:30 | Pulmonolgy Critical Care Note ---
Critical Care - Asmt/Plan Problems: (1) Septic shock (2) Pyelonephritis (3) Chronic respiratory failure (4) Alzheimer's dementia (5) Severe erosive esophagitis (6) Feeding by G-tube (7) Diabetes (8) CVA (cerebral vascular accident) Assessment/Plan: pt needs to be transfused. there is no family available. pt is almost vegetative state. Respiratory: monitor respiratory rate, adjust FIO2, CXR Cardiac: continue to monitor HR/BP Renal: F/U I&O Infectious Disease: check cultures Gastrointestinal: continue feedings/current rate Endocrine: monitor blood sugar, check TSH Hematologic: monitor H/H, transfuse if hgb<8.5 Neurologic: PRN Ativan, PRN Morphine Affect: PRN ativan Prophylaxis: Protonix Notes Reviewed: cardio, 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 with: nurses, consultants, other Critical Care - Objective Last 24 Hour Vital Signs Date Time Temp Pulse Resp B/P (MAP) Pulse Ox O2 Delivery O2 Flow Rate FiO2 06/28/19 05:56 98.2 77 101/59 (73) 06/28/19 05:32 76 16 35 06/28/19 04:00 Mechanical Ventilator 06/28/19 04:00 97.9 82 16 90/61 (71) 99 06/28/19 04:00 35 06/28/19 03:37 78 06/28/19 03:00 78 16 35 06/28/19 01:10 85 19 35 06/28/19 00:00 Mechanical Ventilator 06/28/19 00:00 80 06/28/19 00:00 97.7 83 16 111/57 (75) 98 06/28/19 00:00 35 06/27/19 23:29 85 16 35 06/27/19 22:30 67 113/50 (71) 06/27/19 21:49 63 94/43 (60) 06/27/19 21:33 65 81/52 (62) 06/27/19 21:06 61 76/40 (52) 06/27/19 21:00 70 24 35 06/27/19 20:00 Mechanical Ventilator 06/27/19 20:00 97.5 62 16 78/43 (55) 100 06/27/19 20:00 35 06/27/19 19:47 60 06/27/19 18:50 68 17 35 06/27/19 16:36 61 16 35 06/27/19 16:00 Mechanical Ventilator 06/27/19 16:00 68 06/27/19 16:00 96.4 66 16 128/72 (90) 96 06/27/19 16:00 35 06/27/19 15:11 70 16 35 06/27/19 13:14 67 16 35 06/27/19 12:00 73 06/27/19 12:00 Mechanical Ventilator 06/27/19 12:00 35 06/27/19 12:00 97.3 61 16 112/55 (74) 100 06/27/19 11:43 57 16 98 06/27/19 11:37 56 16 98 06/27/19 11:18 61 16 35 06/27/19 11:04 85 21 97 06/27/19 11:02 85 21 97 06/27/19 08:56 59 16 35 06/27/19 08:00 96.5 62 16 133/73 (93) 100 06/27/19 08:00 61 06/27/19 08:00 40 06/27/19 08:00 Mechanical Ventilator 06/27/19 07:40 73 16 35 Status: awake Condition: critical HEENT: atraumatic Neck: full ROM Lungs: clear Heart: HR/BP stable, regular Abdomen: soft, active bowel sounds Extremities: no C/C/E Critical Care - Subjective ROS Limited/Unobtainable: Yes Condition: critical EKG Rhythm: Sinus Rhythm FI02: 35 Vent Support Breath Rate: 16 Vent Support Mode: AC Vent Tidal Volume: 600 Sputum Amount: Small PEEP: 0.0 PIP: 31 Tube Feeding Amount: 50 I&O: Intake and Output 06/27/19 06/28/19 19:00 07:00 Intake Total 1050 ml 1030 ml Output Total 2300 ml 300 ml Balance -1250 ml 730 ml Intake Free Water 130 ml 50 ml IV Total 650 ml 600 ml Tube Feeding 270 ml 380 ml Output Urine Total 2300 ml 300 ml # Bowel Movements 1 1 CXR: no change Labs: Laboratory Tests Test 06/28/19 04:10 White Blood Count 6.9 K/UL (4.8-10.8) Red Blood Count 2.49 M/UL (4.70-6.10) L Hemoglobin 7.0 G/DL (14.2-18.0) L Hematocrit 21.6 % (42.0-52.0) L Mean Corpuscular Volume 87 FL (80-99) Mean Corpuscular Hemoglobin 28.3 PG (27.0-31.0) Mean Corpuscular Hemoglobin Concent 32.5 G/DL (32.0-36.0) Red Cell Distribution Width 15.8 % (11.6-14.8) H Platelet Count 245 K/UL (150-450) Mean Platelet Volume 8.1 FL (6.5-10.1) Neutrophils (%) (Auto) % (45.0-75.0) Lymphocytes (%) (Auto) % (20.0-45.0) Monocytes (%) (Auto) % (1.0-10.0) Eosinophils (%) (Auto) % (0.0-3.0) Basophils (%) (Auto) % (0.0-2.0) Neutrophils % (Manual) Pending Lymphocytes % (Manual) Pending Platelet Estimate Pending Platelet Morphology Pending Sodium Level 133 MMOL/L (136-145) L Potassium Level 3.7 MMOL/L (3.5-5.1) Chloride Level 100 MMOL/L (98-107) Carbon Dioxide Level 24 MMOL/L (21-32) Anion Gap 9 mmol/L (5-15) Blood Urea Nitrogen 13 mg/dL (7-18) Creatinine 1.3 MG/DL (0.55-1.30) Estimat Glomerular Filtration Rate 54.6 mL/min (>60) Glucose Level 289 MG/DL (74-106) #H Calcium Level 7.7 MG/DL (8.5-10.1) Huma Vera MD Jun 28, 2019 07:30
--- NOTE | 2019-06-28 07:41 | NUR ---
NURSE NOTES: Dr. Nath at bedside. Informed him that peripheral redraw for CBC is ordered. PICC line draw hgb result is 7.0. Dr. Nath said that transfuse 1 unit if hgb is less that 7.5.
[2019-06-28 07:52] LABS: BASOPHILS % (AUTO) 1.1 % (0.0-2.0); EOSINOPHILS % (AUTO) 2.5 % (0.0-3.0); HEMATOCRIT 24.5 % (42.0-52.0); LYMPHOCYTES % (AUTO) 18.8 % (20.0-45.0); MEAN CORPUSCULAR VOLUME 85 FL (80-99); MONOCYTES % (AUTO) 11.8 % (1.0-10.0); NEUTROPHILS % (AUTO) 65.9 % (45.0-75.0); PLATELET COUNT 283 K/UL (150-450); RED BLOOD COUNT 2.89 M/UL (4.70-6.10); RED CELL DISTRIBUTION WIDTH 16.2 % (11.6-14.8); WHITE BLOOD COUNT 7.9 K/UL (4.8-10.8)
--- NOTE | 2019-06-28 08:47 | General Progress Note ---
Assessment/Plan Problem List: (1) Diabetes ICD Codes: E11.9 - Type 2 diabetes mellitus without complications SNOMED: 02030457 (2) HTN (hypertension) ICD Codes: I10 - Essential (primary) hypertension SNOMED: 92493546 (3) CVA (cerebral vascular accident) ICD Codes: I63.9 - Cerebral infarction, unspecified SNOMED: 189045143 (4) Severe protein-calorie malnutrition ICD Codes: E43 - Unspecified severe protein-calorie malnutrition SNOMED: 262922990 (5) Feeding by G-tube ICD Codes: Z93.1 - Gastrostomy status SNOMED: 921748636, 395609974 (6) Respiratory failure, [id number] ICD Codes: J96.20 - Respiratory failure, [id number] SNOMED: 92842981 (7) Anemia ICD Codes: D64.9 - Anemia, unspecified SNOMED: 414964587 (8) Chronic respiratory failure ICD Codes: J96.10 - Chronic respiratory failure, unspecified whether with hypoxia or hypercapnia SNOMED: 23791443 (9) Septic shock ICD Codes: A41.9 - Sepsis, unspecified organism; R65.21 - Severe sepsis with septic shock SNOMED: 87524623 (10) Alzheimer's dementia ICD Codes: G30.9 - Alzheimer's disease, unspecified SNOMED: 66949153 (11) Severe sepsis ICD Codes: A41.9 - Sepsis, unspecified organism; R65.20 - Severe sepsis without septic shock SNOMED: 65827825 (12) Hypothyroidism ICD Codes: E03.9 - Hypothyroidism, unspecified SNOMED: 99032483 Status: unchanged Assessment/Plan: vent abx wean pressor cbc bmp am tranfuse prn ltach eval Subjective Constitutional: Reports: weakness Allergies: Coded Allergies: NO KNOWN DRUG ALLERGIES (Verified Allergy, Unknown, 09/11/16) All Systems: reviewed and negative except above Subjective trach vent altered Objective Last 24 Hour Vital Signs Date Time Temp Pulse Resp B/P (MAP) Pulse Ox O2 Delivery O2 Flow Rate FiO2 06/28/19 08:00 35 06/28/19 08:00 98.1 73 18 100/46 (64) 100 06/28/19 08:00 Mechanical Ventilator 06/28/19 07:29 81 16 35 06/28/19 05:56 98.2 77 101/59 (73) 06/28/19 05:32 76 16 35 06/28/19 04:00 Mechanical Ventilator 06/28/19 04:00 97.9 82 16 90/61 (71) 99 06/28/19 04:00 35 06/28/19 03:37 78 06/28/19 03:00 78 16 35 06/28/19 01:10 85 19 35 06/28/19 00:00 Mechanical Ventilator 06/28/19 00:00 80 06/28/19 00:00 97.7 83 16 111/57 (75) 98 06/28/19 00:00 35 06/27/19 23:29 85 16 35 06/27/19 22:30 67 113/50 (71) 06/27/19 21:49 63 94/43 (60) 06/27/19 21:33 65 81/52 (62) 06/27/19 21:06 61 76/40 (52) 06/27/19 21:00 70 24 35 06/27/19 20:00 Mechanical Ventilator 06/27/19 20:00 97.5 62 16 78/43 (55) 100 06/27/19 20:00 35 06/27/19 19:47 60 06/27/19 18:50 68 17 35 06/27/19 16:36 61 16 35 06/27/19 16:00 Mechanical Ventilator 06/27/19 16:00 68 06/27/19 16:00 96.4 66 16 128/72 (90) 96 06/27/19 16:00 35 06/27/19 15:11 70 16 35 06/27/19 13:14 67 16 35 06/27/19 12:00 73 06/27/19 12:00 Mechanical Ventilator 06/27/19 12:00 35 06/27/19 12:00 97.3 61 16 112/55 (74) 100 06/27/19 11:43 57 16 98 06/27/19 11:37 56 16 98 06/27/19 11:18 61 16 35 06/27/19 11:04 85 21 97 06/27/19 11:02 85 21 97 06/27/19 08:56 59 16 35 Intake and Output 06/27/19 06/28/19 19:00 07:00 Intake Total 1050 ml 1030 ml Output Total 2300 ml 300 ml Balance -1250 ml 730 ml Intake Free Water 130 ml 50 ml IV Total 650 ml 600 ml Tube Feeding 270 ml 380 ml Output Urine Total 2300 ml 300 ml # Bowel Movements 1 1 Laboratory Tests 06/28/19 04:10: White Blood Count 6.9, Red Blood Count 2.49L, Hemoglobin 7.0L, Hematocrit 21.6L , Mean Corpuscular Volume 87, Mean Corpuscular Hemoglobin 28.3, Mean Corpuscular Hemoglobin Concent 32.5, Red Cell Distribution Width 15.8H, Platelet Count 245, Mean Platelet Volume 8.1, Neutrophils (%) (Auto) , Lymphocytes (%) (Auto) , Monocytes (%) (Auto) , Eosinophils (%) (Auto) , Basophils (%) (Auto) , Neutrophils % (Manual) [Pending], Lymphocytes % (Manual) [Pending], Platelet Estimate [Pending], Platelet Morphology [Pending], Sodium Level 133L, Potassium Level 3.7, Chloride Level 100, Carbon Dioxide Level 24, Anion Gap 9, Blood Urea Nitrogen 13, Creatinine 1.3, Estimat Glomerular Filtration Rate 54.6, Glucose Level 289#H, Calcium Level 7.7L 06/28/19 07:45: White Blood Count 7.9, Red Blood Count 2.89L, Hemoglobin 8.0L, Hematocrit 24.5L , Mean Corpuscular Volume 85, Mean Corpuscular Hemoglobin 27.9, Mean Corpuscular Hemoglobin Concent 32.9, Red Cell Distribution Width 16.2H, Platelet Count 283, Mean Platelet Volume 7.6, Neutrophils (%) (Auto) 65.9, Lymphocytes (%) (Auto) 18.8L, Monocytes (%) (Auto) 11.8H, Eosinophils (%) (Auto ) 2.5, Basophils (%) (Auto) 1.1 Height (Feet): 5 Height (Inches): 8.00 Weight (Pounds): 197 General Appearance: lethargic EENT: normal ENT inspection Neck: normal alignment Cardiovascular: normal peripheral pulses, normal rate, regular rhythm Respiratory/Chest: chest wall non-tender, lungs clear, normal breath sounds Abdomen: normal bowel sounds, non tender, soft Extremities: normal inspection Edema: no edema noted Arm (L), no edema noted Arm (R), no edema noted Leg (L), no edema noted Leg (R), no edema noted Pedal (L), no edema noted Pedal (R), no edema noted Generalized Neurologic: motor weakness Skin: normal pigmentation, warm/dry Gato Viveros DO Jun 28, 2019 08:47
[2019-06-28] MEDS: Pantoprazole Inj IVP SCH ×2 (09:06→20:31)
[2019-06-28] MEDS: Zinc Oxide Oint 2oz TOPIC SCH (09:07)
--- NOTE | 2019-06-28 10:41 | Surgery Progress Note ---
Surgery Progress Note Subjective Additional Comments Patient seen and examined bedside. Hyperglycemia identified glucose in the 200s. Patient still ill-appearing and prognosis very guarded. Path report noted with just mild gastritis Objective Last 24 Hour Vital Signs Date Time Temp Pulse Resp B/P (MAP) Pulse Ox O2 Delivery O2 Flow Rate FiO2 06/28/19 08:55 75 16 35 06/28/19 08:00 35 06/28/19 08:00 98.1 73 18 100/46 (64) 100 06/28/19 08:00 Mechanical Ventilator 06/28/19 07:29 81 16 35 06/28/19 05:56 98.2 77 101/59 (73) 06/28/19 05:32 76 16 35 06/28/19 04:00 Mechanical Ventilator 06/28/19 04:00 97.9 82 16 90/61 (71) 99 06/28/19 04:00 35 06/28/19 03:37 78 06/28/19 03:00 78 16 35 06/28/19 01:10 85 19 35 06/28/19 00:00 Mechanical Ventilator 06/28/19 00:00 80 06/28/19 00:00 97.7 83 16 111/57 (75) 98 06/28/19 00:00 35 06/27/19 23:29 85 16 35 06/27/19 22:30 67 113/50 (71) 06/27/19 21:49 63 94/43 (60) 06/27/19 21:33 65 81/52 (62) 06/27/19 21:06 61 76/40 (52) 06/27/19 21:00 70 24 35 06/27/19 20:00 Mechanical Ventilator 06/27/19 20:00 97.5 62 16 78/43 (55) 100 06/27/19 20:00 35 06/27/19 19:47 60 06/27/19 18:50 68 17 35 06/27/19 16:36 61 16 35 06/27/19 16:00 Mechanical Ventilator 06/27/19 16:00 68 06/27/19 16:00 96.4 66 16 128/72 (90) 96 06/27/19 16:00 35 06/27/19 15:11 70 16 35 06/27/19 13:14 67 16 35 06/27/19 12:00 73 06/27/19 12:00 Mechanical Ventilator 06/27/19 12:00 35 06/27/19 12:00 97.3 61 16 112/55 (74) 100 06/27/19 11:43 57 16 98 06/27/19 11:37 56 16 98 06/27/19 11:18 61 16 35 06/27/19 11:04 85 21 97 06/27/19 11:02 85 21 97 I&O Intake and Output 06/27/19 06/28/19 19:00 07:00 Intake Total 1050 ml 1030 ml Output Total 2300 ml 300 ml Balance -1250 ml 730 ml Intake Free Water 130 ml 50 ml IV Total 650 ml 600 ml Tube Feeding 270 ml 380 ml Output Urine Total 2300 ml 300 ml # Bowel Movements 1 1 Dressing: saturated Wound: clean Cardiovascular: RSR Respiratory: decreased breath sounds Abdomen: soft, present bowel sounds Extremities: no cyanosis Laboratory Tests Test 06/28/19 04:10 06/28/19 07:45 White Blood Count 6.9 K/UL (4.8-10.8) 7.9 K/UL (4.8-10.8) Red Blood Count 2.49 M/UL (4.70-6.10) L 2.89 M/UL (4.70-6.10) L Hemoglobin 7.0 G/DL (14.2-18.0) L 8.0 G/DL (14.2-18.0) L Hematocrit 21.6 % (42.0-52.0) L 24.5 % (42.0-52.0) L Mean Corpuscular Volume 87 FL (80-99) 85 FL (80-99) Mean Corpuscular Hemoglobin 28.3 PG (27.0-31.0) 27.9 PG (27.0-31.0) Mean Corpuscular Hemoglobin Concent 32.5 G/DL (32.0-36.0) 32.9 G/DL (32.0-36.0) Red Cell Distribution Width 15.8 % (11.6-14.8) H 16.2 % (11.6-14.8) H Platelet Count 245 K/UL (150-450) 283 K/UL (150-450) Mean Platelet Volume 8.1 FL (6.5-10.1) 7.6 FL (6.5-10.1) Neutrophils (%) (Auto) % (45.0-75.0) 65.9 % (45.0-75.0) Lymphocytes (%) (Auto) % (20.0-45.0) 18.8 % (20.0-45.0) L Monocytes (%) (Auto) % (1.0-10.0) 11.8 % (1.0-10.0) H Eosinophils (%) (Auto) % (0.0-3.0) 2.5 % (0.0-3.0) Basophils (%) (Auto) % (0.0-2.0) 1.1 % (0.0-2.0) Differential Total Cells Counted 100 Neutrophils % (Manual) 71 % (45-75) Lymphocytes % (Manual) 14 % (20-45) L Monocytes % (Manual) 14 % (1-10) H Eosinophils % (Manual) 1 % (0-3) Basophils % (Manual) 0 % (0-2) Band Neutrophils 0 % (0-8) Platelet Estimate Adequate Platelet Morphology Normal Hypochromasia Anisocytosis 1+ Sodium Level 133 MMOL/L (136-145) L Potassium Level 3.7 MMOL/L (3.5-5.1) Chloride Level 100 MMOL/L (98-107) Carbon Dioxide Level 24 MMOL/L (21-32) Anion Gap 9 mmol/L (5-15) Blood Urea Nitrogen 13 mg/dL (7-18) Creatinine 1.3 MG/DL (0.55-1.30) Estimat Glomerular Filtration Rate 54.6 mL/min (>60) Glucose Level 289 MG/DL (74-106) #H Calcium Level 7.7 MG/DL (8.5-10.1) L Plan Problems: (1) Severe protein-calorie malnutrition Assessment & Plan: DAILY ESTIMATED NEEDS: Needs based on Critical care, underweight TF DIRECTOR OF COMPLIANCE 56.8 30-35 kcals/kg 9266-8896 total kcals 1.25-2 g protein/kg 71-113.6 g total protein 25-30 mL/kg 8225-2397 total fluid mLs NUTRITION DIAGNOSIS: * Increased kcal/prot intake needs R/T sepsis and underweight status as evidenced by pt adm w/ critically elev WBC (35.7*), febrile, @68% [place] Body Weight. * Swallowing difficulty R/T respiratory status as evidenced by pt vent dep via trach, PEG dep. ENTERAL NUTRITION RECOMMENDATIONS: Nepro @45mL/hr x 22hr to provide 990mL, 1782kcal, 80g pro, 720mL free water -When Hemodynamically stable, start Nepro @ 15mL/hr for 6 hrs. -Advance as tolerated 10mL q 4-6 hrs to goal. -TF @goal meets 100% est needs. -Flush per MD/ HOB >30 degrees. ADDITIONAL RECOMMENDATIONS: * Calibrated bedscale weight for accurate CBW + weekly wt monitoring * Per SNF: Ht of 6'1", Wt 125# (05/2019) * TF recs as above when medically stable * Monitor for cont'd need of renal formula (K 5.5) * Monitor lytes and hydration status. (2) Feeding by G-tube Assessment & Plan: g tube changed s/p scope results pending (3) Respiratory failure, [id number] (4) Septic shock Assessment & Plan: hypotensive - improved tachycardic - improved labs as above improving PICC line placed And central line removed will follow with recs thank you (5) Severe sepsis (6) GT SITE LEAKING Assessment & Plan: Patient identified worsening G-tube site leakage and cellulitis. This has been noted on prior admissions which is cared for. Plan for placement as below Pt presents with contractures. Skin erosions to abdominal region, and multiple areas of non-blanching erythema. Skin erosion noted to abdomen extending around GT and mostly to L abdominal area, skin is grossly red and excoriated. Furuncle noted to L flank oozing moderate amt purulent exudate. Non-blanchable erythema without fluctuance noted to L lateral malleolus (L) 1.5cm x (W)3cm. Non-blanchable erythema without fluctuance noted to lateral L foot (L)1cm x (W) 1cm. Non-blanchable erythema noted to sacral cleft. No other skin concerns noted. Tx.Plan: Apply Zinc Oxide Paste to GT site and excoriated areas on abd daily and prn. Apply Betadine to Boil L flank Daily .Cover with Optifoam drsg. Change daily and prn. Apply Moisture Barrier Paste to sacrum. Cover with Optifoam drsg. Change every 3 days and prn. Apply Cavilon to Non-blanchable areas L foot and bilat heels. Cover each site with Optifoam drsg. Change every 7 days and prn. Reposition at least every 2hours or as tolerated. Place pillow between knees. Off-load heels with pillow. APM/RENO Mattress overlay. Quirino Bernard Jun 28, 2019 10:41
--- NOTE | 2019-06-28 11:12 | NUR ---
NURSE NOTES: Informed Dr. Viveros via telephone that patient is having short seizure episodes since 06/26/19, and there's no neuro consult in case. Dr. Viveros said that he will contact Dr. Gaffney regarding this matter.
[2019-06-28] MEDS: LORazepam Inj 2mg/ml 1ml IVP PRN ×2 (11:21→22:53)
--- NOTE | 2019-06-28 11:29 | NUR ---
NURSE NOTES: Left message to Dr. Keating that patient is having seizure episodes. Awaiting for call back.
--- NOTE | 2019-06-28 11:43 | NUR ---
NURSE NOTES: Spoke to Dr. Gaffney via telephone. Informed regarding neuro consult order from Dr. Viveros. And Dr. Gaffney said that he can't see patient today and if Dr. Viveros can find another neurologist. Will inform Dr. Viveros regarding this matter.
--- NOTE | 2019-06-28 12:01 | NUR ---
NURSE NOTES: Dr. Viveros called back. Informed him about what Dr. Gaffney said taht he can't see patient today and to find another neurologist. Dr. Viveros said that tomorrow is fine.
--- NOTE | 2019-06-28 12:52 | Hematology/Onc Progress Note ---
Assessment/Plan Assessment/Plan ASSESSMENT AND RECOMMENDATIONS # Anemia of chronic disease due to underlying chronic medical issues, multifactorial --> Anemia w/u has been reviewed and c/w acd ferritin 635, tibc 160 --> No evidence of hemolysis is noted, peripheral smear has been reviewed. --> Hgb goal >7. Transfuse prn. --> Epogen or iron at this time is not particularly indicated --> unable to obtain consent, with no family --> r/o hemolysis as well --> hgb 7.5-->8-->8.7-->8.2-->7.8-->8-->7.4-->8.8-->8.3-->8 --> 06/26: EGD/COLO with diverticulosis --> spep is negative for bands # Leukocytosis. Likely related to underlying infection versus reactive process. patient with septic shock on admission --> Peripheral has been reviewed--> rouleaux formation on smear --> Medications have been reviewed --> Imaging has been reviewed. CXR shows Suboptimal positioning. No interval consolidation, overt edema or other acute cardiopulmonary findings. --> urine culture with ++uti on cultures provedencia --> Has been started on abx, empiric treatment (ertap/vanc)--> Levo --> wbc is 36-->26k-->9k # Thrombocytopenia decreased since admission --> plt count 190-->123k-->101k-->95k-->93k-->120k-->249k --> abx for id # Coagulopathy with elev ptt --> may be due to vit k deficiency, less likely inhibitor # Septic shock poa --> on abx per id --> initially on pressors, now off # Upper GI vomiting bleed in prior admission --> currently appears to have resolved # Trach and PEG --> chronic # Hyperkalemia --> as per renal # Dvt ppx heparin sq (ON HOLD for potential bleed) The timing of this note does not necessarily reflect the time of the patient was seen. Greatly appreciate consultation. Subjective HEENT: Denies: no symptoms, eye pain, blurred vision, tearing, double vision, ear pain, ear discharge, nose pain, nose congestion, throat pain, throat swelling, mouth pain, mouth swelling, other Cardiovascular: Denies: no symptoms, chest pain, edema, irregular heart rate, lightheadedness, palpitations, syncope, other Respiratory: Denies: no symptoms, cough, shortness of breath, SOB with excertion, SOB at rest, sputum, wheezing, other Gastrointestinal/Abdominal: Denies: no symptoms, abdomen distended, abdominal pain, black stools, tarry stools, blood in stool, constipated, diarrhea, difficulty swallowing, nausea, poor appetite, poor fluid intake, rectal bleeding , vomiting, other Genitourinary: Denies: no symptoms, burning, discharge, frequency, flank pain, hematuria, incontinence, pain, urgency, other Endocrine: Denies: no symptoms, excessive sweating, flushing, intolerance to cold, intolerance to heat, increased hunger, increased thirst, increased urine, unexplained weight gain, unexplained weight loss, other Allergies: Coded Allergies: NO KNOWN DRUG ALLERGIES (Verified Allergy, Unknown, 09/11/16) Subjective 06/17: blood transfusion completed, on low dose pressors, no bleeding noted 06/19: liya rn, no major events, cbc reviewed, tube feeds ongoing 06/22: no major changes, no bleeding or night sweats, on abx, in sariah 06/23: no f/c, no bleeding, labs noted, in sariah, hgb 8, plt 120k 06/24: labs reviewed, no bleeding, no night sweats, no bleeding 06/25: heparin held for potential bleed, gt is clamped, no events, no fc 06/26: for egd today with gi, bleeding noted, requiring prbc transf 06/27: gi procedure was done today and noted for diverticulosis, otherwise cbc stable 06/28: remains stable, being treated for gerd, hgb 8, no bleeding Objective Objective Current Medications Medications (Trade) Dose Ordered Sig/Wanda Route PRN Reason Start Time Stop Time Status Last Admin Dose Admin Acetaminophen (Tylenol) 650 mg Q4H PRN GT fever (temp>100.5F) 06/19/19 04:00 07/14/19 03:59 Chlorhexidine Gluconate (Jasmin-Hex 2%) 1 applic DAILY@1999 TOPIC 06/20/19 20:00 07/20/19 19:59 06/27/19 20:58 Dextrose 1,000 ml @ 50 mls/hr Q20H IV 06/19/19 03:15 07/18/19 12:59 06/28/19 05:00 Levothyroxine Sodium (Synthroid) 88 mcg DAILY@0630 GT 06/22/19 06:30 07/20/19 06:29 06/28/19 05:58 Lorazepam (Ativan 2mg/ml 1ml) 2 mg Q4H PRN IVP For Seizures 06/26/19 15:30 07/03/19 15:29 06/28/19 11:21 Midodrine (Pro-Amatine) 2.5 mg EVERY 8 HOURS GT 06/23/19 22:00 07/17/19 12:59 06/28/19 05:00 Ondansetron HCl (Zofran) 4 mg Q6H PRN IVP Nausea & Vomiting 06/19/19 08:30 07/14/19 14:29 Pantoprazole (Protonix) 40 mg EVERY 12 HOURS IVP 06/21/19 09:00 07/21/19 08:59 06/28/19 09:06 Phenytoin (Dilantin) 100 mg Q8HR GT 06/26/19 22:00 07/26/19 21:59 06/28/19 05:00 Polyethylene Glycol (Miralax) 17 gm DAILYPRN PRN GT Constipation 06/19/19 14:30 07/14/19 14:29 Sucralfate (Carafate) 1 gm EVERY 8 HOURS GT 06/23/19 22:00 07/21/19 08:59 06/28/19 05:00 Zinc Oxide (Zinc Oxide) 1 applic DAILY TOPIC 06/21/19 09:00 07/21/19 08:59 06/28/19 09:07 Last 24 Hour Vital Signs Date Time Temp Pulse Resp B/P (MAP) Pulse Ox O2 Delivery O2 Flow Rate FiO2 06/28/19 12:00 35 06/28/19 12:00 99.1 82 20 97/46 (63) 97 06/28/19 12:00 Mechanical Ventilator 06/28/19 11:23 86 06/28/19 10:53 86 19 35 06/28/19 08:55 75 16 35 06/28/19 08:00 35 06/28/19 08:00 98.1 73 18 100/46 (64) 100 06/28/19 08:00 Mechanical Ventilator 06/28/19 07:38 81 06/28/19 07:29 81 16 35 06/28/19 05:56 98.2 77 101/59 (73) 06/28/19 05:32 76 16 35 06/28/19 04:00 Mechanical Ventilator 06/28/19 04:00 97.9 82 16 90/61 (71) 99 06/28/19 04:00 35 06/28/19 03:37 78 06/28/19 03:00 78 16 35 06/28/19 01:10 85 19 35 06/28/19 00:00 Mechanical Ventilator 06/28/19 00:00 80 06/28/19 00:00 97.7 83 16 111/57 (75) 98 06/28/19 00:00 35 06/27/19 23:29 85 16 35 06/27/19 22:30 67 113/50 (71) 06/27/19 21:49 63 94/43 (60) 06/27/19 21:33 65 81/52 (62) 06/27/19 21:06 61 76/40 (52) 06/27/19 21:00 70 24 35 06/27/19 20:00 Mechanical Ventilator 06/27/19 20:00 97.5 62 16 78/43 (55) 100 06/27/19 20:00 35 06/27/19 19:47 60 06/27/19 18:50 68 17 35 06/27/19 16:36 61 16 35 06/27/19 16:00 Mechanical Ventilator 06/27/19 16:00 68 06/27/19 16:00 96.4 66 16 128/72 (90) 96 06/27/19 16:00 35 06/27/19 15:11 70 16 35 06/27/19 13:14 67 16 35 06/27/19 12:00 73 06/27/19 12:00 Mechanical Ventilator 06/27/19 12:00 35 06/27/19 12:00 97.3 61 16 112/55 (74) 100 06/27/19 11:43 57 16 98 06/27/19 11:37 56 16 98 06/27/19 11:18 61 16 35 06/27/19 11:04 85 21 97 06/27/19 11:02 85 21 97 06/27/19 08:56 59 16 35 06/27/19 08:00 96.5 62 16 133/73 (93) 100 06/27/19 08:00 61 06/27/19 08:00 40 06/27/19 08:00 Mechanical Ventilator 06/27/19 07:40 73 16 35 06/27/19 05:05 78 16 35 06/27/19 05:00 97.4 71 16 155/75 (101) 100 06/27/19 04:00 35 06/27/19 04:00 Mechanical Ventilator 06/27/19 03:38 76 06/27/19 03:20 75 16 35 06/27/19 01:20 74 16 35 06/27/19 00:00 Mechanical Ventilator 06/27/19 00:00 97.5 75 16 140/80 (100) 99 06/26/19 23:37 71 06/26/19 22:37 58 16 35 06/26/19 21:00 63 16 35 06/26/19 20:00 98.5 66 16 110/58 (75) 99 06/26/19 20:00 35 06/26/19 20:00 Mechanical Ventilator 06/26/19 19:24 64 06/26/19 19:17 68 16 35 06/26/19 16:52 73 16 35 06/26/19 16:00 35 06/26/19 16:00 99.4 69 16 115/60 (78) 96 06/26/19 16:00 Mechanical Ventilator 06/26/19 15:44 101 06/26/19 15:00 106 23 35 06/26/19 13:24 79 16 35 Intake and Output 06/27/19 06/28/19 19:00 07:00 Intake Total 1050 ml 1030 ml Output Total 2300 ml 300 ml Balance -1250 ml 730 ml Intake Free Water 130 ml 50 ml IV Total 650 ml 600 ml Tube Feeding 270 ml 380 ml Output Urine Total 2300 ml 300 ml # Bowel Movements 1 1 Labs Test 06/26/19 02:00 06/27/19 04:00 06/27/19 04:30 06/28/19 04:10 White Blood Count 7.9 K/UL (4.8-10.8) 7.5 K/UL (4.8-10.8) 6.9 K/UL (4.8-10.8) Red Blood Count 3.15 M/UL (4.70-6.10) 3.00 M/UL (4.70-6.10) 2.49 M/UL (4.70-6.10) Hemoglobin 8.8 G/DL (14.2-18.0) 8.3 G/DL (14.2-18.0) 7.0 G/DL (14.2-18.0) Hematocrit 26.5 % (42.0-52.0) 25.6 % (42.0-52.0) 21.6 % (42.0-52.0) Mean Corpuscular Volume 84 FL (80-99) 85 FL (80-99) 87 FL (80-99) Mean Corpuscular Hemoglobin 28.1 PG (27.0-31.0) 27.7 PG (27.0-31.0) 28.3 PG (27.0-31.0) Mean Corpuscular Hemoglobin Concent 33.3 G/DL (32.0-36.0) 32.4 G/DL (32.0-36.0) 32.5 G/DL (32.0-36.0) Red Cell Distribution Width 15.0 % (11.6-14.8) 16.0 % (11.6-14.8) 15.8 % (11.6-14.8) Platelet Count 205 K/UL (150-450) 249 K/UL (150-450) 245 K/UL (150-450) Mean Platelet Volume 9.2 FL (6.5-10.1) 8.8 FL (6.5-10.1) 8.1 FL (6.5-10.1) Neutrophils (%) (Auto) 74.7 % (45.0-75.0) 62.9 % (45.0-75.0) % (45.0-75.0) Lymphocytes (%) (Auto) 10.9 % (20.0-45.0) 14.8 % (20.0-45.0) % (20.0-45.0) Monocytes (%) (Auto) 11.9 % (1.0-10.0) 17.3 % (1.0-10.0) % (1.0-10.0) Eosinophils (%) (Auto) 1.8 % (0.0-3.0) 4.2 % (0.0-3.0) % (0.0-3.0) Basophils (%) (Auto) 0.8 % (0.0-2.0) 0.9 % (0.0-2.0) % (0.0-2.0) Prothrombin Time 10.9 SEC (9.30-11.50) Prothromb Time International Ratio 1.0 (0.9-1.1) Activated Partial Thromboplast Time 47 SEC (23-33) Sodium Level 133 MMOL/L (136-145) 136 MMOL/L (136-145) 133 MMOL/L (136-145) Potassium Level 4.6 MMOL/L (3.5-5.1) 3.9 MMOL/L (3.5-5.1) 3.7 MMOL/L (3.5-5.1) Chloride Level 101 MMOL/L (98-107) 102 MMOL/L (98-107) 100 MMOL/L (98-107) Carbon Dioxide Level 28 MMOL/L (21-32) 27 MMOL/L (21-32) 24 MMOL/L (21-32) Anion Gap 4 mmol/L (5-15) 7 mmol/L (5-15) 9 mmol/L (5-15) Blood Urea Nitrogen 16 mg/dL (7-18) 13 mg/dL (7-18) 13 mg/dL (7-18) Creatinine 1.0 MG/DL (0.55-1.30) 1.2 MG/DL (0.55-1.30) 1.3 MG/DL (0.55-1.30) Estimat Glomerular Filtration Rate > 60 mL/min (>60) 59.9 mL/min (>60) 54.6 mL/min (>60) Glucose Level 75 MG/DL (74-106) 84 MG/DL (74-106) 289 MG/DL (74-106) Calcium Level 8.4 MG/DL (8.5-10.1) 8.5 MG/DL (8.5-10.1) 7.7 MG/DL (8.5-10.1) Stool Occult Blood Positive (NEGATIVE) Differential Total Cells Counted 100 Neutrophils % (Manual) 71 % (45-75) Lymphocytes % (Manual) 14 % (20-45) Monocytes % (Manual) 14 % (1-10) Eosinophils % (Manual) 1 % (0-3) Basophils % (Manual) 0 % (0-2) Band Neutrophils 0 % (0-8) Platelet Estimate Adequate Platelet Morphology Normal Hypochromasia Anisocytosis 1+ Test 06/28/19 07:45 White Blood Count 7.9 K/UL (4.8-10.8) Red Blood Count 2.89 M/UL (4.70-6.10) Hemoglobin 8.0 G/DL (14.2-18.0) Hematocrit 24.5 % (42.0-52.0) Mean Corpuscular Volume 85 FL (80-99) Mean Corpuscular Hemoglobin 27.9 PG (27.0-31.0) Mean Corpuscular Hemoglobin Concent 32.9 G/DL (32.0-36.0) Red Cell Distribution Width 16.2 % (11.6-14.8) Platelet Count 283 K/UL (150-450) Mean Platelet Volume 7.6 FL (6.5-10.1) Neutrophils (%) (Auto) 65.9 % (45.0-75.0) Lymphocytes (%) (Auto) 18.8 % (20.0-45.0) Monocytes (%) (Auto) 11.8 % (1.0-10.0) Eosinophils (%) (Auto) 2.5 % (0.0-3.0) Basophils (%) (Auto) 1.1 % (0.0-2.0) Height (Feet): 5 Height (Inches): 8.00 Weight (Pounds): 197 Objective PHYSICAL EXAMINATION: VITAL SIGNS: Have been reviewed HEENT: Trach/vent site ++ CHEST: Bibasilar rales CV: Regular rate and rhythm. GI: Positive bowel sounds. G-tube++ EXTREMITIES: + edema. NEUROLOGICAL: Reflexes equal on both sides. Nikos Nath MD Jun 28, 2019 12:52
--- NOTE | 2019-06-28 14:55 | Cardiology Progress Note ---
Assessment/Plan Problem List: (1) Diabetes (2) CVA (cerebral vascular accident) (3) Arrhythmia (4) Feeding by G-tube (5) Respiratory failure, [id number] (6) Anemia (7) Upper GI bleed (8) Seizure Status: stable, unchanged Status Narrative Pt stable from cardiac standpoint. No significant bradyarrhythmias noted today. Has had sinus tach w/ seizures. He had sinus chau, to 40s yesterday, after received ativan for sedation. He has hypothyroidism, and is on synthroid. Does not appear in CHF Assessment/Plan Continue supportive care. Telemetry monitoring. Will check TSH to r/o hypothyroidism/ under-replacement , as cause for bradycardia. Further management of seizures per primary team. Subjective ROS Limited/Unobtainable: Yes Subjective Cardiology for Dr. Ponce Intubated, not responsive Objective Last 24 Hour Vital Signs Date Time Temp Pulse Resp B/P (MAP) Pulse Ox O2 Delivery O2 Flow Rate FiO2 06/28/19 13:00 86 20 35 06/28/19 12:00 35 06/28/19 12:00 99.1 82 20 97/46 (63) 97 06/28/19 12:00 Mechanical Ventilator 06/28/19 11:23 86 06/28/19 10:53 86 19 35 06/28/19 08:55 75 16 35 06/28/19 08:00 35 06/28/19 08:00 98.1 73 18 100/46 (64) 100 06/28/19 08:00 Mechanical Ventilator 06/28/19 07:38 81 06/28/19 07:29 81 16 35 06/28/19 05:56 98.2 77 101/59 (73) 06/28/19 05:32 76 16 35 06/28/19 04:00 Mechanical Ventilator 06/28/19 04:00 97.9 82 16 90/61 (71) 99 06/28/19 04:00 35 06/28/19 03:37 78 06/28/19 03:00 78 16 35 06/28/19 01:10 85 19 35 06/28/19 00:00 Mechanical Ventilator 06/28/19 00:00 80 06/28/19 00:00 97.7 83 16 111/57 (75) 98 06/28/19 00:00 35 06/27/19 23:29 85 16 35 06/27/19 22:30 67 113/50 (71) 06/27/19 21:49 63 94/43 (60) 06/27/19 21:33 65 81/52 (62) 06/27/19 21:06 61 76/40 (52) 06/27/19 21:00 70 24 35 06/27/19 20:00 Mechanical Ventilator 06/27/19 20:00 97.5 62 16 78/43 (55) 100 06/27/19 20:00 35 06/27/19 19:47 60 06/27/19 18:50 68 17 35 06/27/19 16:36 61 16 35 06/27/19 16:00 Mechanical Ventilator 06/27/19 16:00 68 06/27/19 16:00 96.4 66 16 128/72 (90) 96 06/27/19 16:00 35 06/27/19 15:11 70 16 35 General Appearance: on vent, other - chronically ill appearing, not responsive to voice Neck: no JVD, other - trach/ vent Rhythm: NSR Cardiovascular: normal rate, regular rhythm, no gallop/murmur Respiratory/Chest: other - fairly clear anteriorly Abdomen: other - gtube, abd soft, nondistended Extremities: other - contractures of lower extremities bilat Intake and Output 06/27/19 06/28/19 19:00 07:00 Intake Total 1050 ml 1030 ml Output Total 2300 ml 300 ml Balance -1250 ml 730 ml Intake Free Water 130 ml 50 ml IV Total 650 ml 600 ml Tube Feeding 270 ml 380 ml Output Urine Total 2300 ml 300 ml # Bowel Movements 1 1 Laboratory Tests Test 06/28/19 04:10 06/28/19 07:45 White Blood Count 6.9 K/UL (4.8-10.8) 7.9 K/UL (4.8-10.8) Red Blood Count 2.49 M/UL (4.70-6.10) L 2.89 M/UL (4.70-6.10) L Hemoglobin 7.0 G/DL (14.2-18.0) L 8.0 G/DL (14.2-18.0) L Hematocrit 21.6 % (42.0-52.0) L 24.5 % (42.0-52.0) L Mean Corpuscular Volume 87 FL (80-99) 85 FL (80-99) Mean Corpuscular Hemoglobin 28.3 PG (27.0-31.0) 27.9 PG (27.0-31.0) Mean Corpuscular Hemoglobin Concent 32.5 G/DL (32.0-36.0) 32.9 G/DL (32.0-36.0) Red Cell Distribution Width 15.8 % (11.6-14.8) H 16.2 % (11.6-14.8) H Platelet Count 245 K/UL (150-450) 283 K/UL (150-450) Mean Platelet Volume 8.1 FL (6.5-10.1) 7.6 FL (6.5-10.1) Neutrophils (%) (Auto) % (45.0-75.0) 65.9 % (45.0-75.0) Lymphocytes (%) (Auto) % (20.0-45.0) 18.8 % (20.0-45.0) L Monocytes (%) (Auto) % (1.0-10.0) 11.8 % (1.0-10.0) H Eosinophils (%) (Auto) % (0.0-3.0) 2.5 % (0.0-3.0) Basophils (%) (Auto) % (0.0-2.0) 1.1 % (0.0-2.0) Differential Total Cells Counted 100 Neutrophils % (Manual) 71 % (45-75) Lymphocytes % (Manual) 14 % (20-45) L Monocytes % (Manual) 14 % (1-10) H Eosinophils % (Manual) 1 % (0-3) Basophils % (Manual) 0 % (0-2) Band Neutrophils 0 % (0-8) Platelet Estimate Adequate Platelet Morphology Normal Hypochromasia Anisocytosis 1+ Sodium Level 133 MMOL/L (136-145) L Potassium Level 3.7 MMOL/L (3.5-5.1) Chloride Level 100 MMOL/L (98-107) Carbon Dioxide Level 24 MMOL/L (21-32) Anion Gap 9 mmol/L (5-15) Blood Urea Nitrogen 13 mg/dL (7-18) Creatinine 1.3 MG/DL (0.55-1.30) Estimat Glomerular Filtration Rate 54.6 mL/min (>60) Glucose Level 289 MG/DL (74-106) #H Calcium Level 7.7 MG/DL (8.5-10.1) Lawanda Escalante MD Jun 28, 2019 14:55
[2019-06-28] MEDS ORDERED: Tubing IV Secondary IV ONE (16:14)
[2019-06-28] MEDS ORDERED: NS 500ML ONE (16:14)
[2019-06-28] MEDS ORDERED: NS 275ml ONE (16:14)
--- NOTE | 2019-06-28 16:38 | Nephrology Progress Note ---
Assessment/Plan Problem List: (1) Septic shock (2) Hypothyroidism (3) Upper GI bleed (4) Respiratory failure, [id number] (5) Anemia Assessment Sepsis Shock on pressors GI Bleed Low Na and high K UTI HypoThyroidism Tracheostomy dependence Respiratory failure, dxqai-jk-ztbhiqi Alzheimer's Feeding by G-tube Plan consider transfusion off pressors- On Midodrine On GT feeding On Reglan fluid challenge as needed adjust IV fluids transfuse as needed Monitor lytes and renal parametrs urine studies per orders Subjective ROS Limited/Unobtainable: Yes Objective Objective Last 24 Hour Vital Signs Date Time Temp Pulse Resp B/P (MAP) Pulse Ox O2 Delivery O2 Flow Rate FiO2 06/28/19 16:00 Mechanical Ventilator 06/28/19 16:00 35 06/28/19 16:00 99.8 70 18 93/53 (66) 97 06/28/19 15:26 66 16 35 06/28/19 13:00 86 20 35 06/28/19 12:00 35 06/28/19 12:00 99.1 82 20 97/46 (63) 97 06/28/19 12:00 Mechanical Ventilator 06/28/19 11:23 86 06/28/19 10:53 86 19 35 06/28/19 08:55 75 16 35 06/28/19 08:00 35 06/28/19 08:00 98.1 73 18 100/46 (64) 100 06/28/19 08:00 Mechanical Ventilator 06/28/19 07:38 81 06/28/19 07:29 81 16 35 06/28/19 05:56 98.2 77 101/59 (73) 06/28/19 05:32 76 16 35 06/28/19 04:00 Mechanical Ventilator 06/28/19 04:00 97.9 82 16 90/61 (71) 99 06/28/19 04:00 35 06/28/19 03:37 78 06/28/19 03:00 78 16 35 06/28/19 01:10 85 19 35 06/28/19 00:00 Mechanical Ventilator 06/28/19 00:00 80 06/28/19 00:00 97.7 83 16 111/57 (75) 98 06/28/19 00:00 35 06/27/19 23:29 85 16 35 06/27/19 22:30 67 113/50 (71) 06/27/19 21:49 63 94/43 (60) 06/27/19 21:33 65 81/52 (62) 06/27/19 21:06 61 76/40 (52) 06/27/19 21:00 70 24 35 06/27/19 20:00 Mechanical Ventilator 06/27/19 20:00 97.5 62 16 78/43 (55) 100 06/27/19 20:00 35 06/27/19 19:47 60 06/27/19 18:50 68 17 35 Intake and Output 06/27/19 06/28/19 18:59 06:59 Intake Total 1010 ml 1070 ml Output Total 2300 ml 300 ml Balance -1290 ml 770 ml Intake Free Water 130 ml 50 ml IV Total 650 ml 600 ml Tube Feeding 230 ml 420 ml Output Urine Total 2300 ml 300 ml # Bowel Movements 1 1 Laboratory Tests 06/28/19 04:10: White Blood Count 6.9, Red Blood Count 2.49L, Hemoglobin 7.0L, Hematocrit 21.6L , Mean Corpuscular Volume 87, Mean Corpuscular Hemoglobin 28.3, Mean Corpuscular Hemoglobin Concent 32.5, Red Cell Distribution Width 15.8H, Platelet Count 245, Mean Platelet Volume 8.1, Neutrophils (%) (Auto) , Lymphocytes (%) (Auto) , Monocytes (%) (Auto) , Eosinophils (%) (Auto) , Basophils (%) (Auto) , Differential Total Cells Counted 100, Neutrophils % ( Manual) 71, Lymphocytes % (Manual) 14L, Monocytes % (Manual) 14H, Eosinophils % (Manual) 1, Basophils % (Manual) 0, Band Neutrophils 0, Platelet Estimate Adequate, Platelet Morphology Normal, Hypochromasia , Anisocytosis 1+, Sodium Level 133L, Potassium Level 3.7, Chloride Level 100, Carbon Dioxide Level 24, Anion Gap 9, Blood Urea Nitrogen 13, Creatinine 1.3, Estimat Glomerular Filtration Rate 54.6, Glucose Level 289#H, Calcium Level 7.7L 06/28/19 07:45: White Blood Count 7.9, Red Blood Count 2.89L, Hemoglobin 8.0L, Hematocrit 24.5L , Mean Corpuscular Volume 85, Mean Corpuscular Hemoglobin 27.9, Mean Corpuscular Hemoglobin Concent 32.9, Red Cell Distribution Width 16.2H, Platelet Count 283, Mean Platelet Volume 7.6, Neutrophils (%) (Auto) 65.9, Lymphocytes (%) (Auto) 18.8L, Monocytes (%) (Auto) 11.8H, Eosinophils (%) (Auto ) 2.5, Basophils (%) (Auto) 1.1 Height (Feet): 5 Height (Inches): 8.00 Weight (Pounds): 197 General Appearance: no apparent distress EENT: other - trach vent Cardiovascular: normal rate Respiratory/Chest: decreased breath sounds Abdomen: soft Objective no change Sav Salvador MD Jun 28, 2019 16:38
--- NOTE | 2019-06-28 19:15 | NUR ---
NURSE NOTES: Received report from Deborah RN, pt. in bed awake, pt. is non-verbal, no signs or symptoms of acute cardiac or respiratory distress noted, bed in lowest position and call light within easy reach, bed alarm on, side rails up x's 3 and safety brakes engaged, pt appears to be tolerating current vent settings well- AC 16, TV 600 and FIo2 at 35%- no distress noted, Osmolite 1.2 running via G tube at 55cc/hr- no residual noted, G tube intact and patent, side rails padded for seizure precautions- no seizure activity noted, ALEXI PICC running D5W at 50cc/hr, Victor intact and draining to gravity, Safety measures continued, will continue with plan of care.
--- NOTE | 2019-06-28 19:20 | NUR ---
NURSE NOTES: Eun De Luna RN
[2019-06-28] MEDS: Dyna-Hex 2% Top Sol 2oz TOPIC SCH (20:30)
[2019-06-28] MEDS ORDERED: Zinc Oxide Oint 2oz TOPIC SCH (21:00)
--- NOTE | 2019-06-28 22:50 | NUR ---
NURSE NOTES: Patient noted having a seizure twitching noted to face area rt. side eye- seizure lasted about 8-10 seconds- Ativan administered- see eMAR- pt. remains stable and no signs of distress noted. Will continue to monitor pt. for seizure- side rails still in place for seizure precautions.
--- NOTE | 2019-06-28 23:25 | NUR ---
NURSE NOTES: left message with DR. Viveros's exchange Jennifer-regarding pt. having a 2nd seizure which lasted about 5 seconds- pt. does remain stable- awaiting for call back from doctor.
[2019-06-29] VITALS (23 sets, daily range): BP systolic 54–153; BP diastolic 31–71
--- NOTE | 2019-06-29 04:20 | NUR ---
NURSE NOTES: noted patient having a seizure - face twitching to Rt. side of face- Ativan administered- see eMAR- pt. does remain stable- will continue to monitor pt. and with plan of care. Addendum: 06/29/19 at 0513 by ANDREA BELLE RN RN seizure lasted for about 8-11 seconds.
[2019-06-29] MEDS: LORazepam Inj 2mg/ml 1ml IVP PRN (04:22)
[2019-06-29] MEDS: Sucralfate 1gm tab GT SCH ×3 (05:10→21:42)
[2019-06-29 05:20] LABS: BASOPHILS % (AUTO) 0.9 % (0.0-2.0); EOSINOPHILS % (AUTO) 4.1 % (0.0-3.0); HEMATOCRIT 29.9 % (42.0-52.0); HEMOGLOBIN 9.5 G/DL (14.2-18.0); LYMPHOCYTES % (AUTO) 20.2 % (20.0-45.0); MEAN CORPUSCULAR VOLUME 88 FL (80-99); MONOCYTES % (AUTO) 13.8 % (1.0-10.0); PLATELET COUNT 389 K/UL (150-450); RED BLOOD COUNT 3.41 M/UL (4.70-6.10); RED CELL DISTRIBUTION WIDTH 16.4 % (11.6-14.8); WHITE BLOOD COUNT 10.7 K/UL (4.8-10.8)
[2019-06-29 05:47] LABS: ANION GAP 9 mmol/L (5-15); BLOOD UREA NITROGEN 17 mg/dL (7-18); CALCIUM 8.6 MG/DL (8.5-10.1); CARBON DIOXIDE 24 MMOL/L (21-32); CHLORIDE 107 MMOL/L (98-107); CREATININE 1.5 MG/DL (0.55-1.30); POTASSIUM 4.5 MMOL/L (3.5-5.1); SODIUM 140 MMOL/L (136-145)
[2019-06-29] MEDS: Phenytoin Susp 100mg/4ml GT SCH ×3 (06:00→23:07)
--- NOTE | 2019-06-29 07:00 | NUR ---
HAND-OFF: Report given to Chayo HARTLEY,pt. remains stable and no distress noted- Also no seizure activity noted upon handoff. Addendum: 06/29/19 at 0712 by ANDREA BELLE RN RN Nurse aware to f/u on Ativan order with Primary doctor as pt. is having frequent seizures.
--- NOTE | 2019-06-29 07:05 | NUR ---
NURSE NOTES: Received bedside report from Eun HARTLEY. Pt. in bed, sleeping. No seizure activity noted. Padded side rails in placed. No sign of distress. On mech. vent. AC16/VT600/Fi O2 of 35%. No grimacing noted. HOB elevated at all times. On Osmolite 1.2 @55cc/hr. Tolerating well. PICC line at left upper arm in placed patent/intact running D5W at 50cc/hr. Bed in low position, locked. Call light within reach. Will cont. to monitor.
--- NOTE | 2019-06-29 08:46 | General Progress Note ---
Assessment/Plan Problem List: (1) Diabetes ICD Codes: E11.9 - Type 2 diabetes mellitus without complications SNOMED: 89347805 (2) HTN (hypertension) ICD Codes: I10 - Essential (primary) hypertension SNOMED: 60594384 (3) CVA (cerebral vascular accident) ICD Codes: I63.9 - Cerebral infarction, unspecified SNOMED: 808289906 (4) Severe protein-calorie malnutrition ICD Codes: E43 - Unspecified severe protein-calorie malnutrition SNOMED: 997403540 (5) Feeding by G-tube ICD Codes: Z93.1 - Gastrostomy status SNOMED: 499795198, 938898334 (6) Respiratory failure, [id number] ICD Codes: J96.20 - Respiratory failure, vffxe-rt-eqoramh SNOMED: 83731449 (7) Anemia ICD Codes: D64.9 - Anemia, unspecified SNOMED: 855952402 (8) Chronic respiratory failure ICD Codes: J96.10 - Chronic respiratory failure, unspecified whether with hypoxia or hypercapnia SNOMED: 31727638 (9) Septic shock ICD Codes: A41.9 - Sepsis, unspecified organism; R65.21 - Severe sepsis with septic shock SNOMED: 08814380 (10) Alzheimer's dementia ICD Codes: G30.9 - Alzheimer's disease, unspecified SNOMED: 25393514 (11) Severe sepsis ICD Codes: A41.9 - Sepsis, unspecified organism; R65.20 - Severe sepsis without septic shock SNOMED: 08210082 (12) Hypothyroidism ICD Codes: E03.9 - Hypothyroidism, unspecified SNOMED: 15238847 Status: stable, unchanged Assessment/Plan: vent abx wean pressor cbc bmp am tranfuse prn ltach eval Subjective Constitutional: Reports: weakness Allergies: Coded Allergies: NO KNOWN DRUG ALLERGIES (Verified Allergy, Unknown, 09/11/16) All Systems: reviewed and negative except above Subjective trach vent altered Objective Last 24 Hour Vital Signs Date Time Temp Pulse Resp B/P (MAP) Pulse Ox O2 Delivery O2 Flow Rate FiO2 06/29/19 08:38 62 16 30 06/29/19 08:00 35 06/29/19 08:00 97.6 62 20 112/48 (69) 100 06/29/19 08:00 Mechanical Ventilator 10/20/19 07:23 69 16 30 06/29/19 05:22 57 16 30 06/29/19 05:12 63 96/65 (75) 06/29/19 04:55 97/69 (78) 06/29/19 04:00 35 06/29/19 04:00 97.9 73 18 108/71 (83) 98 06/29/19 04:00 Mechanical Ventilator 06/29/19 03:51 78 06/29/19 03:05 65 16 30 06/29/19 01:10 62 16 30 06/29/19 00:00 97.5 68 18 103/68 (80) 99 06/29/19 00:00 Mechanical Ventilator 06/29/19 00:00 35 06/28/19 23:40 64 06/28/19 22:49 81 20 30 06/28/19 21:06 75 16 30 06/28/19 20:59 71 98/62 (74) 06/28/19 20:00 96.8 69 18 110/50 (70) 98 06/28/19 20:00 Mechanical Ventilator 06/28/19 20:00 35 06/28/19 19:33 74 06/28/19 19:12 73 16 30 06/28/19 17:14 69 16 35 06/28/19 16:00 Mechanical Ventilator 06/28/19 16:00 35 06/28/19 16:00 99.8 70 18 93/53 (66) 97 06/28/19 16:00 70 06/28/19 15:26 66 16 35 06/28/19 13:00 86 20 35 06/28/19 12:00 35 06/28/19 12:00 99.1 82 20 97/46 (63) 97 06/28/19 12:00 Mechanical Ventilator 06/28/19 11:23 86 06/28/19 10:53 86 19 35 06/28/19 08:55 75 16 35 Intake and Output 06/28/19 06/29/19 19:00 07:00 Intake Total 1320 ml 1029 ml Output Total 800 ml 2800 ml Balance 520 ml -1771 ml Intake Free Water 50 ml IV Total 600 ml 539 ml Tube Feeding 660 ml 440 ml Other 60 ml Output Urine Total 800 ml 2800 ml Laboratory Tests 06/29/19 03:30: White Blood Count 10.7, Red Blood Count 3.41L, Hemoglobin 9.5L, Hematocrit 29.9L , Mean Corpuscular Volume 88, Mean Corpuscular Hemoglobin 27.8, Mean Corpuscular Hemoglobin Concent 31.7L, Red Cell Distribution Width 16.4H, Platelet Count 389, Mean Platelet Volume 7.3, Neutrophils (%) (Auto) 61.0, Lymphocytes (%) (Auto) 20.2, Monocytes (%) (Auto) 13.8H, Eosinophils (%) (Auto) 4.1H, Basophils (%) (Auto) 0.9, Sodium Level 140, Potassium Level 4.5, Chloride Level 107, Carbon Dioxide Level 24, Anion Gap 9, Blood Urea Nitrogen 17, Creatinine 1.5H, Estimat Glomerular Filtration Rate 46.3, Glucose Level 110#H, Calcium Level 8.6, Thyroid Stimulating Hormone (TSH) 17.549H Height (Feet): 5 Height (Inches): 8.00 Weight (Pounds): 196 General Appearance: lethargic EENT: normal ENT inspection Neck: normal alignment Cardiovascular: normal peripheral pulses, normal rate, regular rhythm Respiratory/Chest: chest wall non-tender, lungs clear, normal breath sounds Abdomen: normal bowel sounds, non tender, soft Extremities: normal inspection Edema: no edema noted Arm (L), no edema noted Arm (R), no edema noted Leg (L), no edema noted Leg (R), no edema noted Pedal (L), no edema noted Pedal (R), no edema noted Generalized Neurologic: motor weakness Skin: normal pigmentation, warm/dry Gato Viveros DO Jun 29, 2019 08:45
[2019-06-29] MEDS: Pantoprazole Inj IVP SCH ×2 (08:51→21:09)
[2019-06-29] MEDS ORDERED: LORazepam Inj 2mg/ml 1ml IV ONE (10:30)
--- NOTE | 2019-06-29 10:45 | NUR ---
NURSE NOTES: Seen by Dr. Jaimes with new order to give Ativan 2mg. IVP x 1 now. Noted pt. with 5 second tremors at least. Will cont. to monitor.
[2019-06-29] MEDS ORDERED: LORazepam Inj 2mg/ml 1ml IV SCH ×2 (11:00→18:00)
--- NOTE | 2019-06-29 11:15 | NUR ---
NURSE NOTES: Checked pt. noted pt. is calmed. No sign of distress. No grimacing noted. No tremors noted. Will cont. to monitor.
--- NOTE | 2019-06-29 11:44 | Nephrology Progress Note ---
Assessment/Plan Problem List: (1) Septic shock (2) Hypothyroidism (3) Upper GI bleed (4) Respiratory failure, [id number]-[id number] (5) Anemia Assessment Sepsis Shock on pressors GI Bleed Low Na and high K UTI HypoThyroidism Tracheostomy dependence Respiratory failure, [id number]-rc-aiyhcop Alzheimer's Feeding by G-tube Plan Albumin bolus as Cr rising consider transfusion as needed off pressors- On Midodrine On GT feeding On Reglan fluid challenge as needed adjust IV fluids transfuse as needed Monitor lytes and renal parametrs urine studies per orders Subjective ROS Limited/Unobtainable: Yes Objective Objective Last 24 Hour Vital Signs Date Time Temp Pulse Resp B/P (MAP) Pulse Ox O2 Delivery O2 Flow Rate FiO2 06/29/19 08:38 62 16 30 06/29/19 08:00 35 06/29/19 08:00 97.6 62 20 112/48 (69) 100 06/29/19 08:00 Mechanical Ventilator 06/29/19 07:53 60 06/29/19 07:23 69 16 30 06/29/19 05:22 57 16 30 06/29/19 05:12 63 96/65 (75) 06/29/19 04:55 97/69 (78) 06/29/19 04:00 35 06/29/19 04:00 97.9 73 18 108/71 (83) 98 06/29/19 04:00 Mechanical Ventilator 06/29/19 03:51 78 06/29/19 03:05 65 16 30 06/29/19 01:10 62 16 30 06/29/19 00:00 97.5 68 18 103/68 (80) 99 06/29/19 00:00 Mechanical Ventilator 06/29/19 00:00 35 06/28/19 23:40 64 06/28/19 22:49 81 20 30 06/28/19 21:06 75 16 30 06/28/19 20:59 71 98/62 (74) 06/28/19 20:00 96.8 69 18 110/50 (70) 98 06/28/19 20:00 Mechanical Ventilator 06/28/19 20:00 35 06/28/19 19:33 74 06/28/19 19:12 73 16 30 06/28/19 17:14 69 16 35 06/28/19 16:00 Mechanical Ventilator 06/28/19 16:00 35 06/28/19 16:00 99.8 70 18 93/53 (66) 97 06/28/19 16:00 70 06/28/19 15:26 66 16 35 06/28/19 13:00 86 20 35 06/28/19 12:00 35 06/28/19 12:00 99.1 82 20 97/46 (63) 97 06/28/19 12:00 Mechanical Ventilator Intake and Output 06/28/19 06/29/19 19:00 07:00 Intake Total 1320 ml 1029 ml Output Total 800 ml 2800 ml Balance 520 ml -1771 ml Intake Free Water 50 ml IV Total 600 ml 539 ml Tube Feeding 660 ml 440 ml Other 60 ml Output Urine Total 800 ml 2800 ml Laboratory Tests 06/29/19 03:30: White Blood Count 10.7, Red Blood Count 3.41L, Hemoglobin 9.5L, Hematocrit 29.9L , Mean Corpuscular Volume 88, Mean Corpuscular Hemoglobin 27.8, Mean Corpuscular Hemoglobin Concent 31.7L, Red Cell Distribution Width 16.4H, Platelet Count 389, Mean Platelet Volume 7.3, Neutrophils (%) (Auto) 61.0, Lymphocytes (%) (Auto) 20.2, Monocytes (%) (Auto) 13.8H, Eosinophils (%) (Auto) 4.1H, Basophils (%) (Auto) 0.9, Sodium Level 140, Potassium Level 4.5, Chloride Level 107, Carbon Dioxide Level 24, Anion Gap 9, Blood Urea Nitrogen 17, Creatinine 1.5H, Estimat Glomerular Filtration Rate 46.3, Glucose Level 110#H, Calcium Level 8.6, Thyroid Stimulating Hormone (TSH) 17.549H 06/29/19 11:27: Magnesium Level [Pending], Ammonia [Pending], Phenytoin (Dilantin) Level [ Pending] Height (Feet): 5 Height (Inches): 8.00 Weight (Pounds): 196 General Appearance: no apparent distress EENT: other - trach Respiratory/Chest: decreased breath sounds Abdomen: distended Objective no change Sav Salvador MD Jun 29, 2019 11:44
--- NOTE | 2019-06-29 12:41 | Infectious Diseases Prog Note ---
Assessment/Plan Assessment/Plan Mr. Huffman is a 68 yo male with PMHx of of chronic resp failure trach/vent dependant, diffuse ulcerative esophagitis, peptic esophageal stricture, asthma, GERD, Dm2, CVA/TIA w/ hemiplegia, functional quadriplegia, CAD, CHF, ESBL UTI , GIB s/p multiple EGDs in the past, schizoaffective disorder, Dementia, hypothyroidism, malnutrition, non verbal, infected obstuctive ureterolithiasis/ w abscess s/p L NT palced 12/2018, encephalopathy, Alzheimer's disease, multiple admissions, subacute facility resident who was sent to the for hypotension and bradycardia. Septic Shock, SP- likely 2ry to UTI and PNA, sp Rx off perssors now Hx of resistant infections 06/23 CXR; Bilateral right greater than left pleural effusions are again demonstrated. Bilateral interstitial and airspace edema persists, unchanged Urine Cx 06/14/19 - >100k ESBL P, stuarti, ESBL P mirabilis (both S Ertapenem , ZOsyn) Blood Cx - NTD CXR show probable pna sp cx PsA (R imipenem, I levaquin), S. maltophila (S bactrim, levaquin) GT leakage with cellulitis, SP -wound cx MDR/CRE K.pna, MDR PsA (colonizers) Leukocytosis; SP Hypothermia; SP Chronic resp failure trach/vent dependant asthma Dm2 CVA/TIA w/ hemiplegia Functional quadriplegia CAD CHF GIB s/p multiple EGDs in the past Schizoaffective disorder Dementia Hypothyroidism Non verbal Alzheimer's disease PLAN: -Cont to monitor off abx -06/27 SP Levaquin #5 -06/24 SP IV Amikacin # -06/23 SP Ertapenem #9 and IV Vancomycin #9 -10/ SP PO Vancomycin #3 -10/ SP Flagyl #2 - monitor CBC and Temps -wound care per hospital protocol -GI f/u Thank you for this consult. [facility] will continue to follow the patient with you during this hospitalization. Subjective Allergies: Coded Allergies: NO KNOWN DRUG ALLERGIES (Verified Allergy, Unknown, 09/11/16) Subjective afebrile no leukocytosis Objective Vital Signs Last 24 Hour Vital Signs Date Time Temp Pulse Resp B/P (MAP) Pulse Ox O2 Delivery O2 Flow Rate FiO2 06/29/19 11:30 58 16 30 06/29/19 08:38 62 16 30 06/29/19 08:00 35 06/29/19 08:00 97.6 62 20 112/48 (69) 100 06/29/19 08:00 Mechanical Ventilator 06/29/19 07:53 60 06/29/19 07:23 69 16 30 06/29/19 05:22 57 16 30 06/29/19 05:12 63 96/65 (75) 06/29/19 04:55 97/69 (78) 06/29/19 04:00 35 06/29/19 04:00 97.9 73 18 108/71 (83) 98 06/29/19 04:00 Mechanical Ventilator 06/29/19 03:51 78 06/29/19 03:05 65 16 30 06/29/19 01:10 62 16 30 06/29/19 00:00 97.5 68 18 103/68 (80) 99 06/29/19 00:00 Mechanical Ventilator 06/29/19 00:00 35 06/28/19 23:40 64 06/28/19 22:49 81 20 30 06/28/19 21:06 75 16 30 06/28/19 20:59 71 98/62 (74) 06/28/19 20:00 96.8 69 18 110/50 (70) 98 06/28/19 20:00 Mechanical Ventilator 06/28/19 20:00 35 06/28/19 19:33 74 06/28/19 19:12 73 16 30 06/28/19 17:14 69 16 35 06/28/19 16:00 Mechanical Ventilator 06/28/19 16:00 35 06/28/19 16:00 99.8 70 18 93/53 (66) 97 06/28/19 16:00 70 06/28/19 15:26 66 16 35 06/28/19 13:00 86 20 35 Height (Feet): 5 Height (Inches): 8.00 Weight (Pounds): 196 Objective Gen: On vent in IVU HEENT: NCAT, MMM, PERRL, No Oral lesion, no scleral icterus NECK: supple, No LAD, No JVD, Trached LUNGS: Coarse B/L, No W/C CARDS: RRR, S1, S2, No M/R/G, ABD: Soft, NT, ND, No R/G, + BS, No HSM, No Masses, PEG : Deferred Ext: C/C/E, Pulses 2+ B/L (DP, Rad): NEURO: A/O x 0, no following SKIN: Warm/dry, No rashes Laboratory Tests Test 06/29/19 03:30 06/29/19 11:27 White Blood Count 10.7 K/UL (4.8-10.8) Red Blood Count 3.41 M/UL (4.70-6.10) L Hemoglobin 9.5 G/DL (14.2-18.0) L Hematocrit 29.9 % (42.0-52.0) L Mean Corpuscular Volume 88 FL (80-99) Mean Corpuscular Hemoglobin 27.8 PG (27.0-31.0) Mean Corpuscular Hemoglobin Concent 31.7 G/DL (32.0-36.0) L Red Cell Distribution Width 16.4 % (11.6-14.8) H Platelet Count 389 K/UL (150-450) Mean Platelet Volume 7.3 FL (6.5-10.1) Neutrophils (%) (Auto) 61.0 % (45.0-75.0) Lymphocytes (%) (Auto) 20.2 % (20.0-45.0) Monocytes (%) (Auto) 13.8 % (1.0-10.0) H Eosinophils (%) (Auto) 4.1 % (0.0-3.0) H Basophils (%) (Auto) 0.9 % (0.0-2.0) Sodium Level 140 MMOL/L (136-145) Potassium Level 4.5 MMOL/L (3.5-5.1) Chloride Level 107 MMOL/L (98-107) Carbon Dioxide Level 24 MMOL/L (21-32) Anion Gap 9 mmol/L (5-15) Blood Urea Nitrogen 17 mg/dL (7-18) Creatinine 1.5 MG/DL (0.55-1.30) H Estimat Glomerular Filtration Rate 46.3 mL/min (>60) Glucose Level 110 MG/DL (74-106) #H Calcium Level 8.6 MG/DL (8.5-10.1) Thyroid Stimulating Hormone (TSH) 17.549 uiU/mL (0.358-3.740) Magnesium Level 1.7 MG/DL (1.8-2.4) L Ammonia 15 umol/L (11-32) Phenytoin (Dilantin) Level 10.1 ug/mL (10-20) Current Medications Medications (Trade) Dose Ordered Sig/Wanda Route PRN Reason Start Time Stop Time Status Last Admin Dose Admin Acetaminophen (Tylenol) 650 mg Q4H PRN GT fever (temp>100.5F) 06/19/19 04:00 07/14/19 03:59 Chlorhexidine Gluconate (Jasmin-Hex 2%) 1 applic DAILY@2000 TOPIC 06/20/19 20:00 07/20/19 19:59 06/28/19 20:30 Dextrose 1,000 ml @ 50 mls/hr Q20H IV 06/19/19 03:15 07/18/19 12:59 06/29/19 02:09 Levothyroxine Sodium (Synthroid) 88 mcg DAILY@0630 GT 06/22/19 06:30 07/20/19 06:29 06/29/19 06:00 Lorazepam (Ativan 2mg/ml 1ml) 2 mg ONCE IV 06/29/19 11:00 06/29/19 12:59 06/29/19 10:50 Lorazepam (Ativan 2mg/ml 1ml) 2 mg Q4H PRN IVP For Seizures 06/26/19 15:30 07/03/19 15:29 06/29/19 04:22 Midodrine (Pro-Amatine) 2.5 mg EVERY 8 HOURS GT 06/23/19 22:00 07/17/19 12:59 06/29/19 05:10 Ondansetron HCl (Zofran) 4 mg Q6H PRN IVP Nausea & Vomiting 06/19/19 08:30 07/14/19 14:29 Pantoprazole (Protonix) 40 mg EVERY 12 HOURS IVP 06/21/19 09:00 07/21/19 08:59 06/29/19 08:51 Phenytoin (Dilantin) 100 mg Q8HR GT 06/26/19 22:00 07/26/19 21:59 06/29/19 06:00 Polyethylene Glycol (Miralax) 17 gm DAILYPRN PRN GT Constipation 06/19/19 14:30 07/14/19 14:29 Sucralfate (Carafate) 1 gm EVERY 8 HOURS GT 06/23/19 22:00 07/21/19 08:59 06/29/19 05:10 Zinc Oxide (Zinc Oxide) 1 applic QHS TOPIC 06/28/19 21:00 07/21/19 08:59 06/28/19 20:30 Lisy Lai M.D. Jun 29, 2019 12:41
--- NOTE | 2019-06-29 14:22 | Pulmonolgy Critical Care Note ---
Critical Care - Asmt/Plan Problems: (1) Septic shock (2) Pyelonephritis (3) Chronic respiratory failure (4) Alzheimer's dementia (5) Severe erosive esophagitis (6) Feeding by G-tube (7) Diabetes (8) CVA (cerebral vascular accident) Respiratory: monitor respiratory rate, adjust FIO2, CXR Renal: F/U I&O, keep IV fluid Infectious Disease: check cultures, continue antibiotics Gastrointestinal: continue feedings/current rate Endocrine: monitor blood sugar Hematologic: monitor H/H, transfuse if hgb<8.5 Neurologic: PRN Ativan, keep patient comfortable Prophylaxis: Heparin Disposition: keep in ICU Notes Reviewed: seismology teacher, 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 with: nurses, consultants, case managersregional ehs manager - Objective Last 24 Hour Vital Signs Date Time Temp Pulse Resp B/P (MAP) Pulse Ox O2 Delivery O2 Flow Rate FiO2 06/29/19 13:28 66 17 30 06/29/19 13:27 66 16 99 Mechanical Ventilator 30 06/29/19 12:00 35 06/29/19 12:00 52 06/29/19 12:00 97.6 54 18 95/49 (64) 100 06/29/19 12:00 Mechanical Ventilator 06/29/19 11:30 58 16 30 06/29/19 08:38 62 16 30 06/29/19 08:00 35 06/29/19 08:00 97.6 62 20 112/48 (69) 100 06/29/19 08:00 Mechanical Ventilator 06/29/19 07:53 60 06/29/19 07:23 69 16 30 06/29/19 05:22 57 16 30 06/29/19 05:12 63 96/65 (75) 06/29/19 04:55 97/69 (78) 06/29/19 04:00 35 06/29/19 04:00 97.9 73 18 108/71 (83) 98 06/29/19 04:00 Mechanical Ventilator 06/29/19 03:51 78 06/29/19 03:05 65 16 30 06/29/19 01:10 62 16 30 06/29/19 00:00 97.5 68 18 103/68 (80) 99 06/29/19 00:00 Mechanical Ventilator 06/29/19 00:00 35 06/28/19 23:40 64 06/28/19 22:49 81 20 30 06/28/19 21:06 75 16 30 06/28/19 20:59 71 98/62 (74) 06/28/19 20:00 96.8 69 18 110/50 (70) 98 06/28/19 20:00 Mechanical Ventilator 06/28/19 20:00 35 06/28/19 19:33 74 06/28/19 19:12 73 16 30 06/28/19 17:14 69 16 35 06/28/19 16:00 Mechanical Ventilator 06/28/19 16:00 35 06/28/19 16:00 99.8 70 18 93/53 (66) 97 06/28/19 16:00 70 06/28/19 15:26 66 16 35 Status: awake Condition: improving HEENT: atraumatic Neck: full ROM Lungs: clear Heart: HR/BP stable Abdomen: soft, active bowel sounds Extremities: no C/C/E Critical Care - Subjective Condition: critical, improving FI02: 30 Vent Support Breath Rate: 16 Vent Support Mode: AC Vent Tidal Volume: 600 Sputum Amount: Scant PEEP: 0.0 PIP: 31 Tube Feeding Amount: 55 I&O: Intake and Output 06/28/19 06/29/19 19:00 07:00 Intake Total 1320 ml 1029 ml Output Total 800 ml 2800 ml Balance 520 ml -1771 ml Intake Free Water 50 ml IV Total 600 ml 539 ml Tube Feeding 660 ml 440 ml Other 60 ml Output Urine Total 800 ml 2800 ml Labs: Laboratory Tests Test 06/29/19 03:30 06/29/19 11:27 White Blood Count 10.7 K/UL (4.8-10.8) Red Blood Count 3.41 M/UL (4.70-6.10) L Hemoglobin 9.5 G/DL (14.2-18.0) L Hematocrit 29.9 % (42.0-52.0) L Mean Corpuscular Volume 88 FL (80-99) Mean Corpuscular Hemoglobin 27.8 PG (27.0-31.0) Mean Corpuscular Hemoglobin Concent 31.7 G/DL (32.0-36.0) L Red Cell Distribution Width 16.4 % (11.6-14.8) H Platelet Count 389 K/UL (150-450) Mean Platelet Volume 7.3 FL (6.5-10.1) Neutrophils (%) (Auto) 61.0 % (45.0-75.0) Lymphocytes (%) (Auto) 20.2 % (20.0-45.0) Monocytes (%) (Auto) 13.8 % (1.0-10.0) H Eosinophils (%) (Auto) 4.1 % (0.0-3.0) H Basophils (%) (Auto) 0.9 % (0.0-2.0) Sodium Level 140 MMOL/L (136-145) Potassium Level 4.5 MMOL/L (3.5-5.1) Chloride Level 107 MMOL/L (98-107) Carbon Dioxide Level 24 MMOL/L (21-32) Anion Gap 9 mmol/L (5-15) Blood Urea Nitrogen 17 mg/dL (7-18) Creatinine 1.5 MG/DL (0.55-1.30) H Estimat Glomerular Filtration Rate 46.3 mL/min (>60) Glucose Level 110 MG/DL (74-106) #H Calcium Level 8.6 MG/DL (8.5-10.1) Thyroid Stimulating Hormone (TSH) 17.549 uiU/mL (0.358-3.740) Magnesium Level 1.7 MG/DL (1.8-2.4) L Ammonia 15 umol/L (11-32) Phenytoin (Dilantin) Level 10.1 ug/mL (10-20) Huma Keating MD Jun 29, 2019 14:22
[2019-06-29] MEDS ORDERED: NS 275ml ONE (15:16)
[2019-06-29] MEDS ORDERED: Tubing IV Secondary IV ONE (15:16)
--- NOTE | 2019-06-29 15:58 | Hematology/Onc Progress Note ---
Assessment/Plan Assessment/Plan ASSESSMENT AND RECOMMENDATIONS # Anemia of chronic disease due to underlying chronic medical issues, multifactorial --> Anemia w/u has been reviewed and c/w acd ferritin 635, tibc 160 --> No evidence of hemolysis is noted, peripheral smear has been reviewed. --> Hgb goal >7. Transfuse prn. --> Epogen or iron at this time is not particularly indicated --> unable to obtain consent, with no family --> r/o hemolysis as well --> hgb 7.5-->8-->8.7-->8.2-->7.8-->8-->7.4-->8.8-->8.3-->8->9.5 --> 06/26: EGD/COLO with diverticulosis --> spep is negative for bands # Leukocytosis. Likely related to underlying infection versus reactive process. patient with septic shock on admission --> Peripheral has been reviewed--> rouleaux formation on smear --> Medications have been reviewed --> Imaging has been reviewed. CXR shows Suboptimal positioning. No interval consolidation, overt edema or other acute cardiopulmonary findings. --> urine culture with ++uti on cultures provedencia --> Has been started on abx, empiric treatment (ertap/vanc)--> Levo --> wbc is 36-->26k-->9k # Thrombocytopenia decreased since admission --> plt count 190-->123k-->101k-->95k-->93k-->120k-->249k --> abx for id # Coagulopathy with elev ptt --> may be due to vit k deficiency, less likely inhibitor # Septic shock poa --> on abx per id --> initially on pressors, now off # Upper GI vomiting bleed in prior admission --> currently appears to have resolved # Trach and PEG --> chronic # Hyperkalemia --> as per renal # Dvt ppx heparin sq (ON HOLD for potential bleed) The timing of this note does not necessarily reflect the time of the patient was seen. Greatly appreciate consultation. Subjective Constitutional: Denies: no symptoms, chills, fever, malaise, weakness, other HEENT: Denies: no symptoms, eye pain, blurred vision, tearing, double vision, ear pain, ear discharge, nose pain, nose congestion, throat pain, throat swelling, mouth pain, mouth swelling, other Cardiovascular: Denies: no symptoms, chest pain, edema, irregular heart rate, lightheadedness, palpitations, syncope, other Respiratory: Denies: no symptoms, cough, shortness of breath, SOB with excertion, SOB at rest, sputum, wheezing, other Genitourinary: Denies: no symptoms, burning, discharge, frequency, flank pain, hematuria, incontinence, pain, urgency, other Neurologic/Psychiatric: Denies: no symptoms, anxiety, depressed, emotional problems, headache, numbness, paresthesia, pre-existing deficit, seizure, tingling, tremors, weakness, other Endocrine: Denies: no symptoms, excessive sweating, flushing, intolerance to cold, intolerance to heat, increased hunger, increased thirst, increased urine, unexplained weight gain, unexplained weight loss, other Allergies: Coded Allergies: NO KNOWN DRUG ALLERGIES (Verified Allergy, Unknown, 09/11/16) Subjective 06/17: blood transfusion completed, on low dose pressors, no bleeding noted 06/19: liya rn, no major events, cbc reviewed, tube feeds ongoing 06/22: no major changes, no bleeding or night sweats, on abx, in sariah 06/23: no f/c, no bleeding, labs noted, in sariah, hgb 8, plt 120k 06/24: labs reviewed, no bleeding, no night sweats, no bleeding 06/25: heparin held for potential bleed, gt is clamped, no events, no fc 06/26: for egd today with gi, bleeding noted, requiring prbc transf 06/27: gi procedure was done today and noted for diverticulosis, otherwise cbc stable 06/28: remains stable, being treated for gerd, hgb 8, no bleeding 06/29: no bleeding noted, no chills, no night sweats, no fc Objective Objective Current Medications Medications (Trade) Dose Ordered Sig/Wanda Route PRN Reason Start Time Stop Time Status Last Admin Dose Admin Acetaminophen (Tylenol) 650 mg Q4H PRN GT fever (temp>100.5F) 06/19/19 04:00 07/14/19 03:59 Chlorhexidine Gluconate (Jasmin-Hex 2%) 1 applic DAILY@2000 TOPIC 06/20/19 20:00 07/20/19 19:59 06/28/19 20:30 Dextrose 1,000 ml @ 50 mls/hr Q20H IV 06/19/19 03:15 07/18/19 12:59 06/29/19 02:09 Levothyroxine Sodium (Synthroid) 88 mcg DAILY@0630 GT 06/22/19 06:30 07/20/19 06:29 06/29/19 06:00 Lorazepam (Ativan 2mg/ml 1ml) 2 mg Q4H PRN IVP For Seizures 06/26/19 15:30 07/03/19 15:29 06/29/19 04:22 Midodrine (Pro-Amatine) 2.5 mg EVERY 8 HOURS GT 06/23/19 22:00 07/17/19 12:59 06/29/19 14:19 Ondansetron HCl (Zofran) 4 mg Q6H PRN IVP Nausea & Vomiting 06/19/19 08:30 07/14/19 14:29 Pantoprazole (Protonix) 40 mg EVERY 12 HOURS IVP 06/21/19 09:00 07/21/19 08:59 06/29/19 08:51 Phenytoin (Dilantin) 100 mg Q8HR GT 06/26/19 22:00 07/26/19 21:59 06/29/19 14:19 Polyethylene Glycol (Miralax) 17 gm DAILYPRN PRN GT Constipation 06/19/19 14:30 07/14/19 14:29 Sucralfate (Carafate) 1 gm EVERY 8 HOURS GT 06/23/19 22:00 07/21/19 08:59 06/29/19 14:19 Zinc Oxide (Zinc Oxide) 1 applic QHS TOPIC 06/28/19 21:00 07/21/19 08:59 06/28/19 20:30 Last 24 Hour Vital Signs Date Time Temp Pulse Resp B/P (MAP) Pulse Ox O2 Delivery O2 Flow Rate FiO2 06/29/19 15:29 80 16 30 06/29/19 13:28 66 17 30 06/29/19 13:27 66 16 99 Mechanical Ventilator 30 06/29/19 12:00 35 06/29/19 12:00 52 06/29/19 12:00 97.6 54 18 95/49 (64) 100 06/29/19 12:00 Mechanical Ventilator 06/29/19 11:30 58 16 30 06/29/19 08:38 62 16 30 06/29/19 08:00 35 06/29/19 08:00 97.6 62 20 112/48 (69) 100 06/29/19 08:00 Mechanical Ventilator 06/29/19 07:53 60 06/29/19 07:23 69 16 30 06/29/19 05:22 57 16 30 06/29/19 05:12 63 96/65 (75) 06/29/19 04:55 97/69 (78) 06/29/19 04:00 35 06/29/19 04:00 97.9 73 18 108/71 (83) 98 06/29/19 04:00 Mechanical Ventilator 06/29/19 03:51 78 06/29/19 03:05 65 16 30 06/29/19 01:10 62 16 30 06/29/19 00:00 97.5 68 18 103/68 (80) 99 06/29/19 00:00 Mechanical Ventilator 06/29/19 00:00 35 06/28/19 23:40 64 06/28/19 22:49 81 20 30 06/28/19 21:06 75 16 30 06/28/19 20:59 71 98/62 (74) 06/28/19 20:00 96.8 69 18 110/50 (70) 98 06/28/19 20:00 Mechanical Ventilator 06/28/19 20:00 35 06/28/19 19:33 74 06/28/19 19:12 73 16 30 06/28/19 17:14 69 16 35 06/28/19 16:00 Mechanical Ventilator 06/28/19 16:00 35 06/28/19 16:00 99.8 70 18 93/53 (66) 97 06/28/19 16:00 70 06/28/19 15:26 66 16 35 06/28/19 13:00 86 20 35 06/28/19 12:00 35 06/28/19 12:00 99.1 82 20 97/46 (63) 97 06/28/19 12:00 Mechanical Ventilator 06/28/19 11:23 86 06/28/19 10:53 86 19 35 10/19/19 08:55 75 16 35 06/28/19 08:00 35 06/28/19 08:00 98.1 73 18 100/46 (64) 100 06/28/19 08:00 Mechanical Ventilator 06/28/19 07:38 81 06/28/19 07:29 81 16 35 06/28/19 05:56 98.2 77 101/59 (73) 06/28/19 05:32 76 16 35 06/28/19 04:00 Mechanical Ventilator 06/28/19 04:00 97.9 82 16 90/61 (71) 99 06/28/19 04:00 35 06/28/19 03:37 78 06/28/19 03:00 78 16 35 06/28/19 01:10 85 19 35 06/28/19 00:00 Mechanical Ventilator 06/28/19 00:00 80 06/28/19 00:00 97.7 83 16 111/57 (75) 98 06/28/19 00:00 35 06/27/19 23:29 85 16 35 06/27/19 22:30 67 113/50 (71) 06/27/19 21:49 63 94/43 (60) 06/27/19 21:33 65 81/52 (62) 06/27/19 21:06 61 76/40 (52) 06/27/19 21:00 70 24 35 06/27/19 20:00 Mechanical Ventilator 06/27/19 20:00 97.5 62 16 78/43 (55) 100 06/27/19 20:00 35 06/27/19 19:47 60 06/27/19 18:50 68 17 35 06/27/19 16:36 61 16 35 06/27/19 16:00 Mechanical Ventilator 06/27/19 16:00 68 06/27/19 16:00 96.4 66 16 128/72 (90) 96 06/27/19 16:00 35 Intake and Output 06/28/19 06/29/19 19:00 07:00 Intake Total 1320 ml 1029 ml Output Total 800 ml 2800 ml Balance 520 ml -1771 ml Intake Free Water 50 ml IV Total 600 ml 539 ml Tube Feeding 660 ml 440 ml Other 60 ml Output Urine Total 800 ml 2800 ml Labs Test 06/27/19 04:00 06/27/19 04:30 06/28/19 04:10 06/28/19 07:45 White Blood Count 7.5 K/UL (4.8-10.8) 6.9 K/UL (4.8-10.8) 7.9 K/UL (4.8-10.8) Red Blood Count 3.00 M/UL (4.70-6.10) 2.49 M/UL (4.70-6.10) 2.89 M/UL (4.70-6.10) Hemoglobin 8.3 G/DL (14.2-18.0) 7.0 G/DL (14.2-18.0) 8.0 G/DL (14.2-18.0) Hematocrit 25.6 % (42.0-52.0) 21.6 % (42.0-52.0) 24.5 % (42.0-52.0) Mean Corpuscular Volume 85 FL (80-99) 87 FL (80-99) 85 FL (80-99) Mean Corpuscular Hemoglobin 27.7 PG (27.0-31.0) 28.3 PG (27.0-31.0) 27.9 PG (27.0-31.0) Mean Corpuscular Hemoglobin Concent 32.4 G/DL (32.0-36.0) 32.5 G/DL (32.0-36.0) 32.9 G/DL (32.0-36.0) Red Cell Distribution Width 16.0 % (11.6-14.8) 15.8 % (11.6-14.8) 16.2 % (11.6-14.8) Platelet Count 249 K/UL (150-450) 245 K/UL (150-450) 283 K/UL (150-450) Mean Platelet Volume 8.8 FL (6.5-10.1) 8.1 FL (6.5-10.1) 7.6 FL (6.5-10.1) Neutrophils (%) (Auto) 62.9 % (45.0-75.0) % (45.0-75.0) 65.9 % (45.0-75.0) Lymphocytes (%) (Auto) 14.8 % (20.0-45.0) % (20.0-45.0) 18.8 % (20.0-45.0) Monocytes (%) (Auto) 17.3 % (1.0-10.0) % (1.0-10.0) 11.8 % (1.0-10.0) Eosinophils (%) (Auto) 4.2 % (0.0-3.0) % (0.0-3.0) 2.5 % (0.0-3.0) Basophils (%) (Auto) 0.9 % (0.0-2.0) % (0.0-2.0) 1.1 % (0.0-2.0) Sodium Level 136 MMOL/L (136-145) 133 MMOL/L (136-145) Potassium Level 3.9 MMOL/L (3.5-5.1) 3.7 MMOL/L (3.5-5.1) Chloride Level 102 MMOL/L (98-107) 100 MMOL/L (98-107) Carbon Dioxide Level 27 MMOL/L (21-32) 24 MMOL/L (21-32) Anion Gap 7 mmol/L (5-15) 9 mmol/L (5-15) Blood Urea Nitrogen 13 mg/dL (7-18) 13 mg/dL (7-18) Creatinine 1.2 MG/DL (0.55-1.30) 1.3 MG/DL (0.55-1.30) Estimat Glomerular Filtration Rate 59.9 mL/min (>60) 54.6 mL/min (>60) Glucose Level 84 MG/DL (74-106) 289 MG/DL (74-106) Calcium Level 8.5 MG/DL (8.5-10.1) 7.7 MG/DL (8.5-10.1) Stool Occult Blood Positive (NEGATIVE) Differential Total Cells Counted 100 Neutrophils % (Manual) 71 % (45-75) Lymphocytes % (Manual) 14 % (20-45) Monocytes % (Manual) 14 % (1-10) Eosinophils % (Manual) 1 % (0-3) Basophils % (Manual) 0 % (0-2) Band Neutrophils 0 % (0-8) Platelet Estimate Adequate Platelet Morphology Normal Hypochromasia Anisocytosis 1+ Test 06/29/19 03:30 06/29/19 11:27 White Blood Count 10.7 K/UL (4.8-10.8) Red Blood Count 3.41 M/UL (4.70-6.10) Hemoglobin 9.5 G/DL (14.2-18.0) Hematocrit 29.9 % (42.0-52.0) Mean Corpuscular Volume 88 FL (80-99) Mean Corpuscular Hemoglobin 27.8 PG (27.0-31.0) Mean Corpuscular Hemoglobin Concent 31.7 G/DL (32.0-36.0) Red Cell Distribution Width 16.4 % (11.6-14.8) Platelet Count 389 K/UL (150-450) Mean Platelet Volume 7.3 FL (6.5-10.1) Neutrophils (%) (Auto) 61.0 % (45.0-75.0) Lymphocytes (%) (Auto) 20.2 % (20.0-45.0) Monocytes (%) (Auto) 13.8 % (1.0-10.0) Eosinophils (%) (Auto) 4.1 % (0.0-3.0) Basophils (%) (Auto) 0.9 % (0.0-2.0) Sodium Level 140 MMOL/L (136-145) Potassium Level 4.5 MMOL/L (3.5-5.1) Chloride Level 107 MMOL/L (98-107) Carbon Dioxide Level 24 MMOL/L (21-32) Anion Gap 9 mmol/L (5-15) Blood Urea Nitrogen 17 mg/dL (7-18) Creatinine 1.5 MG/DL (0.55-1.30) Estimat Glomerular Filtration Rate 46.3 mL/min (>60) Glucose Level 110 MG/DL (74-106) Calcium Level 8.6 MG/DL (8.5-10.1) Thyroid Stimulating Hormone (TSH) 17.549 uiU/mL (0.358-3.740) Magnesium Level 1.7 MG/DL (1.8-2.4) Ammonia 15 umol/L (11-32) Phenytoin (Dilantin) Level 10.1 ug/mL (10-20) Height (Feet): 5 Height (Inches): 8.00 Weight (Pounds): 196 Objective PHYSICAL EXAMINATION: VITAL SIGNS: Have been reviewed HEENT: Trach/vent site ++ CHEST: Bibasilar rales CV: Regular rate and rhythm. GI: Positive bowel sounds. G-tube++ EXTREMITIES: + edema. NEUROLOGICAL: Reflexes equal on both sides. Nikos Nath MD Jun 29, 2019 15:58
--- NOTE | 2019-06-29 16:04 | Surgery Progress Note ---
Surgery Progress Note Subjective Additional Comments afebrile, HD stable exam stable labs noted. h/h stable. no leukcocytosis cr 1.5 Objective Last 24 Hour Vital Signs Date Time Temp Pulse Resp B/P (MAP) Pulse Ox O2 Delivery O2 Flow Rate FiO2 06/29/19 15:29 80 16 30 06/29/19 13:28 66 17 30 06/29/19 13:27 66 16 99 Mechanical Ventilator 30 06/29/19 12:00 35 06/29/19 12:00 52 06/29/19 12:00 97.6 54 18 95/49 (64) 100 06/29/19 12:00 Mechanical Ventilator 06/29/19 11:30 58 16 30 06/29/19 08:38 62 16 30 06/29/19 08:00 35 06/29/19 08:00 97.6 62 20 112/48 (69) 100 06/29/19 08:00 Mechanical Ventilator 06/29/19 07:53 60 06/29/19 07:23 69 16 30 06/29/19 05:22 57 16 30 06/29/19 05:12 63 96/65 (75) 06/29/19 04:55 97/69 (78) 06/29/19 04:00 35 06/29/19 04:00 97.9 73 18 108/71 (83) 98 06/29/19 04:00 Mechanical Ventilator 06/29/19 03:51 78 06/29/19 03:05 65 16 30 06/29/19 01:10 62 16 30 06/29/19 00:00 97.5 68 18 103/68 (80) 99 06/29/19 00:00 Mechanical Ventilator 06/29/19 00:00 35 06/28/19 23:40 64 06/28/19 22:49 81 20 30 06/28/19 21:06 75 16 30 06/28/19 20:59 71 98/62 (74) 06/28/19 20:00 96.8 69 18 110/50 (70) 98 06/28/19 20:00 Mechanical Ventilator 06/28/19 20:00 35 06/28/19 19:33 74 06/28/19 19:12 73 16 30 06/28/19 17:14 69 16 35 I&O Intake and Output 06/28/19 06/29/19 19:00 07:00 Intake Total 1320 ml 1029 ml Output Total 800 ml 2800 ml Balance 520 ml -1771 ml Intake Free Water 50 ml IV Total 600 ml 539 ml Tube Feeding 660 ml 440 ml Other 60 ml Output Urine Total 800 ml 2800 ml Dressing: dry Wound: clean Cardiovascular: RSR Respiratory: decreased breath sounds Abdomen: soft, present bowel sounds, non-distended Extremities: no cyanosis, other Laboratory Tests Test 06/29/19 03:30 06/29/19 11:27 White Blood Count 10.7 K/UL (4.8-10.8) Red Blood Count 3.41 M/UL (4.70-6.10) L Hemoglobin 9.5 G/DL (14.2-18.0) L Hematocrit 29.9 % (42.0-52.0) L Mean Corpuscular Volume 88 FL (80-99) Mean Corpuscular Hemoglobin 27.8 PG (27.0-31.0) Mean Corpuscular Hemoglobin Concent 31.7 G/DL (32.0-36.0) L Red Cell Distribution Width 16.4 % (11.6-14.8) H Platelet Count 389 K/UL (150-450) Mean Platelet Volume 7.3 FL (6.5-10.1) Neutrophils (%) (Auto) 61.0 % (45.0-75.0) Lymphocytes (%) (Auto) 20.2 % (20.0-45.0) Monocytes (%) (Auto) 13.8 % (1.0-10.0) H Eosinophils (%) (Auto) 4.1 % (0.0-3.0) H Basophils (%) (Auto) 0.9 % (0.0-2.0) Sodium Level 140 MMOL/L (136-145) Potassium Level 4.5 MMOL/L (3.5-5.1) Chloride Level 107 MMOL/L (98-107) Carbon Dioxide Level 24 MMOL/L (21-32) Anion Gap 9 mmol/L (5-15) Blood Urea Nitrogen 17 mg/dL (7-18) Creatinine 1.5 MG/DL (0.55-1.30) H Estimat Glomerular Filtration Rate 46.3 mL/min (>60) Glucose Level 110 MG/DL (74-106) #H Calcium Level 8.6 MG/DL (8.5-10.1) Thyroid Stimulating Hormone (TSH) 17.549 uiU/mL (0.358-3.740) Magnesium Level 1.7 MG/DL (1.8-2.4) L Ammonia 15 umol/L (11-32) Phenytoin (Dilantin) Level 10.1 ug/mL (10-20) Plan Problems: (1) Severe protein-calorie malnutrition Assessment & Plan: DAILY ESTIMATED NEEDS: Needs based on Critical care, underweight TF GEOLOGICAL SPECIALIST 56.8 30-35 kcals/kg 2560-9821 total kcals 1.25-2 g protein/kg 71-113.6 g total protein 25-30 mL/kg 3191-2350 total fluid mLs NUTRITION DIAGNOSIS: * Increased kcal/prot intake needs R/T sepsis and underweight status as evidenced by pt adm w/ critically elev WBC (35.7*), febrile, @68% [place] Body Weight. * Swallowing difficulty R/T respiratory status as evidenced by pt vent dep via trach, PEG dep. ENTERAL NUTRITION RECOMMENDATIONS: Nepro @45mL/hr x 22hr to provide 990mL, 1782kcal, 80g pro, 720mL free water -When Hemodynamically stable, start Nepro @ 15mL/hr for 6 hrs. -Advance as tolerated 10mL q 4-6 hrs to goal. -TF @goal meets 100% est needs. -Flush per MD/ HOB >30 degrees. ADDITIONAL RECOMMENDATIONS: * Calibrated bedscale weight for accurate CBW + weekly wt monitoring * Per SNF: Ht of 6'1", Wt 125# (05/2019) * TF recs as above when medically stable * Monitor for cont'd need of renal formula (K 5.5) * Monitor lytes and hydration status. (2) Feeding by G-tube Assessment & Plan: g tube changed (3) Respiratory failure, [id number] (4) Septic shock Assessment & Plan: hypotensive - improved tachycardic - improved labs as above improving PICC line placed And central line removed will follow with recs thank you (5) Severe sepsis (6) GT SITE LEAKING Assessment & Plan: Patient identified worsening G-tube site leakage and cellulitis. This has been noted on prior admissions which is cared for. Plan for placement as below Pt presents with contractures. Skin erosions to abdominal region, and multiple areas of non-blanching erythema. Skin erosion noted to abdomen extending around GT and mostly to L abdominal area, skin is grossly red and excoriated. Furuncle noted to L flank oozing moderate amt purulent exudate. Non-blanchable erythema without fluctuance noted to L lateral malleolus (L) 1.5cm x (W)3cm. Non-blanchable erythema without fluctuance noted to lateral L foot (L)1cm x (W) 1cm. Non-blanchable erythema noted to sacral cleft. No other skin concerns noted. Tx.Plan: Apply Zinc Oxide Paste to GT site and excoriated areas on abd daily and prn. Apply Betadine to Boil L flank Daily .Cover with Optifoam drsg. Change daily and prn. Apply Moisture Barrier Paste to sacrum. Cover with Optifoam drsg. Change every 3 days and prn. Apply Cavilon to Non-blanchable areas L foot and bilat heels. Cover each site with Optifoam drsg. Change every 7 days and prn. Reposition at least every 2hours or as tolerated. Place pillow between knees. Off-load heels with pillow. APM/RENO Mattress overlay. Quirino Bernard Jun 29, 2019 16:04
--- NOTE | 2019-06-29 17:40 | NUR ---
NURSE NOTES: equine pharmacology technician gave his initial report and wanted me to call Dr. Gaffney regarding the result. Tech impression: Abnormal. "Recurrent ictal events: Started at left hemisphere then became generalized. Right facial/arm twitching lasted over a minute." Called Dr. Gaffney and read the result. At first Dr. Gaffney was giving me order and mention "drip". And he change his mind and told RN he will call me back. Will cont. to monitor.
--- NOTE | 2019-06-29 18:15 | NUR ---
NURSE NOTES: Dr. Gaffney called back and ordered given to CN to give Ativan 2mg. x 1 now. oil field technician spoke to Dr. Gaffney also.
--- NOTE | 2019-06-29 18:16 | NUR ---
NURSE NOTES: Dr. Gaffney called and gave order to transfer pt. to ICU. CN made aware. CN called micrographics services supervisor.
--- NOTE | 2019-06-29 19:20 | NUR ---
HAND-OFF: Report given to Candice HARTLEY.
[2019-06-29] MEDS ORDERED: Acetaminophen 650mg/20.3ml GT PRN (19:33)
[2019-06-29] MEDS ORDERED: Miralax 17gm pkt GT PRN (19:33)
[2019-06-29] MEDS ORDERED: LORazepam Inj 2mg/ml 1ml IVP PRN (19:33)
--- NOTE | 2019-06-29 20:00 | NUR ---
NURSE NOTES: Received patient transfer from [facility]. Endorsement received from ODILIA Domingo. Patient withdraws to pain, drowsy, nonverbal. No signs of seizure at this time. No facial twitching. Trache to vent, Portex 8.0. AC 16, 600, 35%. Left upper arm PICC, with good backflow. On D5W 50 ml/hr. GT patent and intact. On Osmolite 1.5 65 ml/hr x 18hours. To be turned off 1 hour before and after Dilantin and Synthroid is given. Victor catheter draining to urimeter. Skin assessment done. With left lateral foot stage 1, left malleolus I, left back stage II, right heel stage I. See WCP. Dressings changed. Temperature 96.8, placed on Joan Hugger. On P200 mattress. On seizure precautions. Head of bed elevated. Bed locked and in low position. Bed alarm on.
--- NOTE | 2019-06-29 20:30 | NUR ---
NURSE NOTES: Received a telephone order from Dr. Gaffney, Phenobarbital loading dose of 1000mg IV x1 and Phenobarbital 90mg IV OD. Orders read back and confirmed by .
[2019-06-29] MEDS: Dyna-Hex 2% Top Sol 2oz TOPIC SCH (21:10)
[2019-06-29] MEDS: Zinc Oxide Oint 2oz TOPIC SCH (21:49)
--- NOTE | 2019-06-29 21:49 | NUR ---
NURSE NOTES: Called and spoke with MD Ponce in regards to patient SBP 79 at this time. Order to give 250 NS bolus at this time. Orders read back and confirmed by
[2019-06-29] MEDS ORDERED: NS IV SCH (22:00)
[2019-06-29] MEDS ORDERED: PHENOBARBITAL IV SCH (22:00)
[2019-06-29] MEDS ORDERED: NS 250 ML IV ONE (22:00)
--- NOTE | 2019-06-29 22:21 | NUR ---
NURSE NOTES: SBP at 50s. Phenobarbital loading dose held at this time.
--- NOTE | 2019-06-29 22:22 | NUR ---
NURSE NOTES: SBP at 50s mmHg. Called Dr Ponce c/o charge nurse. Received new order for Levophed single concentration to maintain SBP >90mmHg. Orders noted and carried out
--- NOTE | 2019-06-29 22:48 | NUR ---
NURSE NOTES: Sinus chau on the monitor, 48-50. Called Dr. Ponce, as per him no new order at this time. SBP now at 110mmHg with levophed at 10mcg/min. Phenobarbital loading dose resumed.
[2019-06-30] VITALS (82 sets, daily range): BP systolic 62–141; BP diastolic 31–106
--- NOTE | 2019-06-30 | NUR ---
NURSE NOTES: Temperature 98,. warming blanket turned off
--- NOTE | 2019-06-30 01:00 | NUR ---
NURSE NOTES: Sinus rhythm on the monitor. temp 97.6F.
--- NOTE | 2019-06-30 03:00 | NUR ---
NURSE NOTES: No seizure activity. Vital signs stable. Sinus rhythm on the monitor
--- NOTE | 2019-06-30 04:15 | Consultation ---
DATE OF CONSULTATION: 06/29/2019 NOTE: POOR AUDIO NEUROLOGIC CONSULTATION CONSULTING PHYSICIAN: Jd Gaffnye M.D. 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 I was asked to see the patient with seizures at the beginning before his admission . The patient has a history of Alzheimer disease . The patient has been seen by multiple doctors, he was found to be anemic on admission and platelets have been abnormal. The patient's white count on admission was 35,000, normal count and normal range. The patient was seen by Hematology as well. The patient is bedbound, has contractures. He has a tracheostomy, past medical history of hypothyroidism, aspiration pneumonia, acute encephalopathy, severe erosive esophagitis, upper GI bleeding, hyperkalemia, severe sepsis, diabetes, hypertension, severe protein-calorie malnutrition, respiratory failure acute on chronic. The patient is thought to have septic shock. The patient has history of seizures. He has been started on Dilantin 100 mg and was getting impulsive beginning on . The patient's calcium of 8.6. His electrolytes although low initially, now with sodium normal, creatinine of 1.5 with BUN of 17 initially. GFR was low. Glucose is fluctuated, now has been elevated at 110. Liver function tests were . His total protein is low with an albumin of 1.9 on 06/23/2019 and on 06/25/2019 of 1.7. done. Most recent chest x-ray of 06/23/2019 shows alveolar opacities. Arterial blood gas from 06/23/2019 elevated pH with pCO2 of 30.9, pO2 of 152. His EKG is abnormal with a first and second-degree AV block. I was asked to see the patient because of seizures. There is no family history available. PAST MEDICAL HISTORY/PAST MEDICAL ILLNESSES: See above. ALLERGIES: No known allergies. MEDICATIONS: He is on vancomycin, norepinephrine, heparin, , metronidazole initially. SOCIAL HISTORY: Lives in a [facility], fully disabled. FAMILY HISTORY: Unavailable. REVIEW OF SYSTEMS: Unavailable. PHYSICAL EXAMINATION: GENERAL: He is a well-developed, well-nourished man, lying in bed with knees flexed. lethargy, occasionally opening his eyes. VITAL SIGNS: The blood pressure is 112/48, respiration rate is 16, pulse rate is 62, FiO2 is 30, temperature is 97.6 degrees. HEENT: . NECK: Basically supple. Carotids could not be auscultated. Bandages on his neck. He has a tracheostomy tube. LUNGS: Breath sounds are decreased. CARDIOVASCULAR: We could not hear any heart sounds. ABDOMEN: Bowel sounds are increased. There is a feeding tube noted. There is no obvious organomegaly or tenderness. EXTREMITIES: His legs are curled up. NEUROLOGIC EXAMINATION: MENTAL STATUS: He has episodic seizures with chronic tremulous activity on his right lower face and right hand with eyes deviated to the right and loss of consciousness. He could not follow any commands postictally. Seizures last about 30 seconds or so. There has been multiple seizures. CRANIAL NERVE EXAMINATION: CRANIAL NERVES II: Could not be tested. CRANIAL NERVES III, IV, AND : Eyes in the midline after the seizure, but deviated to the right, not to the left. Pupils are approximately 2 millimeters round, probably light reactive. CRANIAL NERVE V: Corneals appear to be intact bilaterally. CRANIAL NERVE VII: Facial strength could not be determined. CRANIAL NERVES IX THROUGH XII: Could not be tested. MUSCLE EXAMINATION: Revealed decreased tone in the right upper extremity, increased tone in the right lower extremity. He can move the right lower extremity with withdrawal to pinch, but no movement of the right upper extremity except for the seizure activity. He can move the left upper extremity in defensive movements, but not on the left lower extremity. Reflexes are 0 in the upper extremities. Could not be tested in the lower extremities. Babinski signs tested were mute. SENSORY EXAM: There is some reaction to deep pain in the left upper extremity. IMPRESSION: This patient has a stroke with focal seizures with partial secondary generalization at least in the left hemisphere. It is basically status epilepticus and is probably for the last few days. I am going to get him stat IV Ativan, give 1000 milligram of Dilantin. He weighs about 89 kilograms. I am going to get a stat Tylenol level. Although 1000 mg generally is not an adequate dose. He has already been on Dilantin dosage. Hopefully, this should get him up to 20 milligrams/kilogram. Hopefully, this is without the hypotension or more significant bradycardia. If failed or has a problem, we can give him IV Keppra or Depakote or pentobarbital. An EEG should be obtained continuous monitoring, although this may be difficult. Magnesium level should be obtained and replacement with magnesium, calcium, which is not necessary at this time. His sodium should be adequate. What initially caused his seizures to occur at this time is unclear. We will get a serum ammonia level to see if there is hyperammonemic encephalopathy, which may have to be treated, treating with anticonvulsants in hyperammonemic encephalopathy is generally not too fruitful until the ammonia level is decreased. Other drugs like Keppra can be added if necessary. In fact Keppra may actually be better than Depakote given his liver problems. Cause of his liver disease is unclear at this time. The patient's anemia should be treated to keep his hemoglobin above 13 if possible. PLAN: 1. Add 1000 mg Dilantin 30 minutes or perhaps longer given his previous history of bradycardia and hypertension. 2. Stat Dilantin level. 3. IV Ativan 2 milligrams stat. 4. EEG with monitoring if possible. 5. Magnesium level and magnesium replacement if necessary. 6. Meningitis or encephalitis is highly unlikely. 7. I will speak to you about this case. Thank you for this interesting case. Jd Gaffney MD DR: REED JOB#: [id number] CC:
--- NOTE | 2019-06-30 05:00 | NUR ---
NURSE NOTES: GT feeding withheld for dilantin at 0600H and synthroid at 0630H
[2019-06-30 05:12] LABS: HEMATOCRIT 24.6 % (42.0-52.0); HEMOGLOBIN 8.2 G/DL (14.2-18.0); MEAN CORPUSCULAR VOLUME 86 FL (80-99); PLATELET COUNT 337 K/UL (150-450); RED BLOOD COUNT 2.85 M/UL (4.70-6.10); RED CELL DISTRIBUTION WIDTH 16.3 % (11.6-14.8); WHITE BLOOD COUNT 12.7 K/UL (4.8-10.8)
[2019-06-30 05:57] LABS: ANION GAP 8 mmol/L (5-15); BLOOD UREA NITROGEN 17 mg/dL (7-18); CALCIUM 8.4 MG/DL (8.5-10.1); CARBON DIOXIDE 22 MMOL/L (21-32); CHLORIDE 106 MMOL/L (98-107); CREATININE 1.3 MG/DL (0.55-1.30); POTASSIUM 3.8 MMOL/L (3.5-5.1); SODIUM 136 MMOL/L (136-145)
[2019-06-30] MEDS: Phenytoin Susp 100mg/4ml GT SCH ×3 (06:28→22:09)
[2019-06-30] MEDS: Sucralfate 1gm tab GT SCH ×3 (06:28→22:09)
--- NOTE | 2019-06-30 07:00 | NUR ---
RESPIRATORY NOTES: Received Patient on Mechanical Ventilator settings RR 16, VT 600, FIO2 35%, PEEP +0. 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 Patient is sleeping, showing no signs of distress. Bilateral rhonchi is heard throughout both lungs, in all lung wiseman. Suctioned a small amount of thick owens secretions through trache and thin white secretions through mouth. Alarms are on and audible. Vent plugged into red outlet. Will continue to closely monitor throughout the day.
--- NOTE | 2019-06-30 07:11 | NUR ---
HAND-OFF: No seizure activity during then shift. Report given to ODILIA Milligan.
--- NOTE | 2019-06-30 07:12 | NUR ---
NURSE NOTES: Report received from ODILIA Harvey. Patient observed laying in bed, asleep, opens eyes spontaneously. Pt is nonverbal, withdraws to pain. Trach Portex 8 to vent with settings AC 16, TV 600, FiO2 35%, no PEEP per MD's order; no respiratory distress noted. GTube noted, running Osmolite 1.5 @65mL/her. Double lumen PICC line on left upper arm with D5W running @ 50mL/hr and Levophed @ 2mcg/min. Victor catheter noted, intact and patent, draining yellow urine to gravity. See WCP for skin issues. Safety precautions in place, bed locked, alarmed, and in lowest position, padded side rails up x2, and call light within reach. Pt is on a P200 mattress. Seizure precautions maintained. Will resume plan of care. Dr. Nath notified of Hgb 8.2, no new orders at this time.
[2019-06-30] MEDS: Pantoprazole Inj IVP SCH ×2 (08:13→20:10)
--- NOTE | 2019-06-30 08:45 | General Progress Note ---
Assessment/Plan Problem List: (1) Diabetes ICD Codes: E11.9 - Type 2 diabetes mellitus without complications SNOMED: 49262475 (2) HTN (hypertension) ICD Codes: I10 - Essential (primary) hypertension SNOMED: 15947529 (3) CVA (cerebral vascular accident) ICD Codes: I63.9 - Cerebral infarction, unspecified SNOMED: 473206977 (4) Severe protein-calorie malnutrition ICD Codes: E43 - Unspecified severe protein-calorie malnutrition SNOMED: 472632948 (5) Feeding by G-tube ICD Codes: Z93.1 - Gastrostomy status SNOMED: 689478380, 644707921 (6) Respiratory failure, [id number] ICD Codes: J96.20 - Respiratory failure, [id number] SNOMED: 94078467 (7) Anemia ICD Codes: D64.9 - Anemia, unspecified SNOMED: 285539337 (8) Chronic respiratory failure ICD Codes: J96.10 - Chronic respiratory failure, unspecified whether with hypoxia or hypercapnia SNOMED: 66352957 (9) Septic shock ICD Codes: A41.9 - Sepsis, unspecified organism; R65.21 - Severe sepsis with septic shock SNOMED: 82138217 (10) Alzheimer's dementia ICD Codes: G30.9 - Alzheimer's disease, unspecified SNOMED: 10400866 (11) Severe sepsis ICD Codes: A41.9 - Sepsis, unspecified organism; R65.20 - Severe sepsis without septic shock SNOMED: 67858078 (12) Hypothyroidism ICD Codes: E03.9 - Hypothyroidism, unspecified SNOMED: 52755815 Status: stable, unchanged Assessment/Plan: vent abx wean pressor cbc bmp am tranfuse prn neuro eval ltach eval Subjective Constitutional: Reports: weakness Allergies: Coded Allergies: NO KNOWN DRUG ALLERGIES (Verified Allergy, Unknown, 09/11/16) All Systems: reviewed and negative except above Subjective trach vent altered in icu Objective Last 24 Hour Vital Signs Date Time Temp Pulse Resp B/P (MAP) Pulse Ox O2 Delivery O2 Flow Rate FiO2 06/30/19 08:30 71 17 106/42 (63) 97 06/30/19 08:15 72 18 103/64 (77) 98 06/30/19 08:00 35 06/30/19 08:00 Mechanical Ventilator 06/30/19 08:00 99.7 71 15 97/70 (79) 99 06/30/19 07:45 72 18 106/91 (96) 99 06/30/19 07:32 69 06/30/19 07:30 70 19 104/85 (91) 99 06/30/19 07:15 72 21 104/68 (80) 96 06/30/19 07:00 76 18 110/52 (71) 99 06/30/19 07:00 73 17 35 06/30/19 06:30 77 16 103/58 (73) 98 06/30/19 06:15 81 17 112/57 (75) 99 06/30/19 06:00 80 19 74/53 (60) 99 06/30/19 06:00 74/53 06/30/19 05:45 77 18 88/55 (66) 98 06/30/19 05:30 80 15 112/74 (87) 99 06/30/19 05:25 71 16 35 06/30/19 05:00 106/45 06/30/19 05:00 79 11 106/45 (65) 98 06/30/19 04:45 73 0 116/47 (70) 100 06/30/19 04:30 80 14 120/55 (76) 98 06/30/19 04:15 80 16 110/47 (68) 100 06/30/19 04:00 98.0 84 16 110/48 (68) 98 06/30/19 04:00 Mechanical Ventilator 06/30/19 04:00 110/48 06/30/19 04:00 35 06/30/19 04:00 77 06/30/19 03:30 64 16 35 06/30/19 03:30 80 16 108/42 (64) 98 06/30/19 03:00 72 16 112/46 (68) 100 06/30/19 03:00 112/46 06/30/19 02:45 71 16 119/46 (70) 100 06/30/19 02:30 71 12 116/44 (68) 100 06/30/19 02:15 74 15 109/46 (67) 100 06/30/19 02:00 73 16 112/53 (72) 100 06/30/19 02:00 112/53 06/30/19 01:45 71 16 87/41 (56) 100 10/21/19 01:30 71 7 101/48 (65) 100 06/30/19 01:13 73 16 35 06/30/19 01:00 71 13 102/49 (66) 100 06/30/19 01:00 102/49 06/30/19 00:30 70 14 98/50 (66) 100 06/30/19 00:00 98.0 70 15 97/41 (59) 100 06/30/19 00:00 35 06/30/19 00:00 100/47 06/30/19 00:00 Mechanical Ventilator 06/30/19 00:00 71 06/29/19 23:45 70 16 105/38 (60) 100 06/29/19 23:30 70 16 121/51 (74) 100 06/29/19 23:30 70 16 121/51 (74) 100 06/29/19 23:15 70 16 114/58 (76) 100 06/29/19 23:00 64 16 140/63 (88) 100 06/29/19 23:00 114/58 06/29/19 22:55 62 16 35 06/29/19 22:45 49 16 127/63 (84) 99 06/29/19 22:35 54/31 06/29/19 22:30 59 16 54/31 (39) 100 06/29/19 22:15 61 16 59/31 (40) 100 06/29/19 22:00 75 14 112/53 (72) 100 06/29/19 21:45 70 16 79/38 (52) 97 06/29/19 21:30 71 16 111/44 (66) 99 06/29/19 21:15 75 16 108/51 (70) 99 06/29/19 21:00 69 16 97/36 (56) 100 06/29/19 20:46 67 16 35 06/29/19 20:45 65 16 94/55 (68) 98 06/29/19 20:30 70 16 96/48 (64) 100 06/29/19 20:15 76 19 120/36 (64) 100 06/29/19 20:00 35 06/29/19 20:00 Mechanical Ventilator 06/29/19 20:00 97.5 72 17 114/57 (76) 100 10/20/19 19:50 66 06/29/19 19:30 65 16 35 06/29/19 17:00 85 18 30 06/29/19 16:00 97.4 76 20 153/70 (97) 97 06/29/19 16:00 35 06/29/19 16:00 Mechanical Ventilator 06/29/19 15:31 80 06/29/19 15:29 80 16 30 06/29/19 13:28 66 17 30 06/29/19 13:27 66 16 99 Mechanical Ventilator 30 06/29/19 12:00 35 06/29/19 12:00 52 06/29/19 12:00 97.6 54 18 95/49 (64) 100 06/29/19 12:00 Mechanical Ventilator 06/29/19 11:30 58 16 30 Intake and Output 06/29/19 06/30/19 19:00 07:00 Intake Total 1115 ml 1058.75 ml Output Total 1075 ml 770 ml Balance 40 ml 288.75 ml Intake Free Water 150 ml IV Total 450 ml 603.75 ml Tube Feeding 515 ml 455 ml Output Urine Total 1075 ml 770 ml # Bowel Movements 1 1 Laboratory Tests 06/29/19 11:27: Magnesium Level 1.7L, Ammonia 15, Phenytoin (Dilantin) Level 10.1 06/30/19 04:15: White Blood Count 12.7H, Red Blood Count 2.85L, Hemoglobin 8.2L, Hematocrit 24.6L, Mean Corpuscular Volume 86, Mean Corpuscular Hemoglobin 28.7, Mean Corpuscular Hemoglobin Concent 33.2, Red Cell Distribution Width 16.3H, Platelet Count 337, Mean Platelet Volume 7.5, Neutrophils (%) (Auto) , Lymphocytes (%) (Auto) , Monocytes (%) (Auto) , Eosinophils (%) (Auto) , Basophils (%) (Auto) , Neutrophils % (Manual) [Pending], Lymphocytes % (Manual) [Pending], Platelet Estimate [Pending], Platelet Morphology [Pending], Sodium Level 136, Potassium Level 3.8, Chloride Level 106, Carbon Dioxide Level 22, Anion Gap 8, Blood Urea Nitrogen 17, Creatinine 1.3, Estimat Glomerular Filtration Rate 54.6, Glucose Level 228#H, Calcium Level 8.4L Height (Feet): 5 Height (Inches): 8.00 Weight (Pounds): 196 General Appearance: lethargic EENT: normal ENT inspection Neck: normal alignment Cardiovascular: normal peripheral pulses, normal rate, regular rhythm Respiratory/Chest: chest wall non-tender, lungs clear, normal breath sounds Abdomen: normal bowel sounds, non tender, soft Extremities: normal inspection Edema: no edema noted Arm (L), no edema noted Arm (R), no edema noted Leg (L), no edema noted Leg (R), no edema noted Pedal (L), no edema noted Pedal (R), no edema noted Generalized Neurologic: motor weakness Skin: normal pigmentation, warm/dry Gato Viveros DO Jun 30, 2019 08:45
--- NOTE | 2019-06-30 09:53 | Pulmonolgy Critical Care Note ---
Critical Care - Asmt/Plan Problems: (1) Septic shock (2) Pyelonephritis (3) Chronic respiratory failure (4) Alzheimer's dementia (5) Severe erosive esophagitis (6) Feeding by G-tube (7) Diabetes (8) CVA (cerebral vascular accident) Respiratory: monitor respiratory rate, adjust FIO2, CXR Cardiac: continue to monitor HR/BP Renal: F/U I&O, keep IV fluid Infectious Disease: check cultures, continue antibiotics Gastrointestinal: continue feedings/current rate Endocrine: monitor blood sugar Hematologic: monitor H/H, transfuse if hgb<8.5 Neurologic: PRN Ativan, PRN Morphine, keep patient comfortable Affect: PRN ativan Disposition: keep in ICU Notes Reviewed: edge runner, cardio, 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 with: nurses, consultants, embedded case managerprocess improvement manager - Objective Last 24 Hour Vital Signs Date Time Temp Pulse Resp B/P (MAP) Pulse Ox O2 Delivery O2 Flow Rate FiO2 06/30/19 09:30 71 17 102/37 (58) 98 06/30/19 09:15 71 19 108/49 (68) 99 06/30/19 09:00 71 15 96/39 (58) 98 06/30/19 08:58 72 19 35 06/30/19 08:45 72 18 94/31 (52) 98 06/30/19 08:30 71 17 106/42 (63) 97 06/30/19 08:15 72 18 103/64 (77) 98 06/30/19 08:00 35 06/30/19 08:00 Mechanical Ventilator 06/30/19 08:00 99.7 71 15 97/70 (79) 99 06/30/19 07:45 72 18 106/91 (96) 99 06/30/19 07:32 69 06/30/19 07:30 70 19 104/85 (91) 99 06/30/19 07:15 72 21 104/68 (80) 96 06/30/19 07:00 76 18 110/52 (71) 99 06/30/19 07:00 73 17 35 06/30/19 06:30 77 16 103/58 (73) 98 06/30/19 06:15 81 17 112/57 (75) 99 06/30/19 06:00 80 19 74/53 (60) 99 06/30/19 06:00 74/53 06/30/19 05:45 77 18 88/55 (66) 98 06/30/19 05:30 80 15 112/74 (87) 99 06/30/19 05:25 71 16 35 06/30/19 05:00 106/45 06/30/19 05:00 79 11 106/45 (65) 98 06/30/19 04:45 73 0 116/47 (70) 100 06/30/19 04:30 80 14 120/55 (76) 98 06/30/19 04:15 80 16 110/47 (68) 100 06/30/19 04:00 98.0 84 16 110/48 (68) 98 06/30/19 04:00 Mechanical Ventilator 06/30/19 04:00 110/48 06/30/19 04:00 35 06/30/19 04:00 77 06/30/19 03:30 64 16 35 06/30/19 03:30 80 16 108/42 (64) 98 06/30/19 03:00 72 16 112/46 (68) 100 06/30/19 03:00 112/46 06/30/19 02:45 71 16 119/46 (70) 100 06/30/19 02:30 71 12 116/44 (68) 100 06/30/19 02:15 74 15 109/46 (67) 100 06/30/19 02:00 73 16 112/53 (72) 100 06/30/19 02:00 112/53 06/30/19 01:45 71 16 87/41 (56) 100 06/30/19 01:30 71 7 101/48 (65) 100 06/30/19 01:13 73 16 35 06/30/19 01:00 71 13 102/49 (66) 100 06/30/19 01:00 102/49 06/30/19 00:30 70 14 98/50 (66) 100 06/30/19 00:00 98.0 70 15 97/41 (59) 100 06/30/19 00:00 35 06/30/19 00:00 100/47 06/30/19 00:00 Mechanical Ventilator 06/30/19 00:00 71 06/29/19 23:45 70 16 105/38 (60) 100 06/29/19 23:30 70 16 121/51 (74) 100 06/29/19 23:30 70 16 121/51 (74) 100 06/29/19 23:15 70 16 114/58 (76) 100 06/29/19 23:00 64 16 140/63 (88) 100 06/29/19 23:00 114/58 06/29/19 22:55 62 16 35 06/29/19 22:45 49 16 127/63 (84) 99 06/29/19 22:35 54/31 06/29/19 22:30 59 16 54/31 (39) 100 06/29/19 22:15 61 16 59/31 (40) 100 06/29/19 22:00 75 14 112/53 (72) 100 06/29/19 21:45 70 16 79/38 (52) 97 06/29/19 21:30 71 16 111/44 (66) 99 06/29/19 21:15 75 16 108/51 (70) 99 06/29/19 21:00 69 16 97/36 (56) 100 06/29/19 20:46 67 16 35 06/29/19 20:45 65 16 94/55 (68) 98 06/29/19 20:30 70 16 96/48 (64) 100 06/29/19 20:15 76 19 120/36 (64) 100 06/29/19 20:00 35 06/29/19 20:00 Mechanical Ventilator 06/29/19 20:00 97.5 72 17 114/57 (76) 100 06/29/19 19:50 66 06/29/19 19:30 65 16 35 06/29/19 17:00 85 18 30 06/29/19 16:00 97.4 76 20 153/70 (97) 97 06/29/19 16:00 35 06/29/19 16:00 Mechanical Ventilator 06/29/19 15:31 80 06/29/19 15:29 80 16 30 06/29/19 13:28 66 17 30 06/29/19 13:27 66 16 99 Mechanical Ventilator 30 06/29/19 12:00 35 06/29/19 12:00 52 06/29/19 12:00 97.6 54 18 95/49 (64) 100 06/29/19 12:00 Mechanical Ventilator 06/29/19 11:30 58 16 30 Status: sedated Condition: critical HEENT: atraumatic, normocephalic Neck: full ROM Lungs: chest wall tender Heart: HR/BP stable Abdomen: soft, non-tender Extremities: no C/C/E, edema Critical Care - Subjective ROS Limited/Unobtainable: Yes Interval Events: transferred to ICU for intractable seizures FI02: 35 Vent Support Breath Rate: 16 Vent Support Mode: AC Vent Tidal Volume: 600 Sputum Amount: Small PEEP: 0.0 PIP: 38 Tube Feeding Amount: 65 I&O: Intake and Output 06/29/19 06/30/19 19:00 07:00 Intake Total 1115 ml 1058.75 ml Output Total 1075 ml 770 ml Balance 40 ml 288.75 ml Intake Free Water 150 ml IV Total 450 ml 603.75 ml Tube Feeding 515 ml 455 ml Output Urine Total 1075 ml 770 ml # Bowel Movements 1 1 Huma Keating MD Jun 30, 2019 09:53
--- NOTE | 2019-06-30 10:00 | NUR ---
NURSE NOTES: B/P: 68/34. Pt quickly became hemodynamically unstable Levophed increased to 6mcg/min. Will monitor.
--- NOTE | 2019-06-30 10:15 | NUR ---
NURSE NOTES: B/P:62/32- Levophed increased to 10mcg/min. Will continue to monitor.
--- NOTE | 2019-06-30 11:37 | NUR ---
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 99.7 HR 72 RR 18 B/P 97/70 AC 16 TV 500 FIO2 35% PEEP 5 WBC 12.7 MG 1.7 IS: LEVOPHED GTT PROTONIX IV IVF D5@50ML/HR ICU STATUS
--- NOTE | 2019-06-30 12:00 | NUR ---
NURSE NOTES: Alex notified of STAT EEG ordered by Dr. Gaffney. Reports he will be here as soon as he can.
--- NOTE | 2019-06-30 12:08 | Infectious Diseases Prog Note ---
Assessment/Plan Assessment/Plan Mr. Huffman is a 68 yo male with PMHx of of chronic resp failure trach/vent dependant, diffuse ulcerative esophagitis, peptic esophageal stricture, asthma, GERD, Dm2, CVA/TIA w/ hemiplegia, functional quadriplegia, CAD, CHF, ESBL UTI , GIB s/p multiple EGDs in the past, schizoaffective disorder, Dementia, hypothyroidism, malnutrition, non verbal, infected obstuctive ureterolithiasis/ w abscess s/p L NT palced 12/2018, encephalopathy, Alzheimer's disease, multiple admissions, subacute facility resident who was sent to the for hypotension and bradycardia. Shock, recurrent (06/29)- r/o septic vs neurogenic Status epilepticus Septic Shock, SP- likely 2ry to UTI and PNA, sp Rx off pressors now Hx of resistant infections 06/23 CXR; Bilateral right greater than left pleural effusions are again demonstrated. Bilateral interstitial and airspace edema persists, unchanged Urine Cx 06/14/19 - >100k ESBL P, stuarti, ESBL P mirabilis (both S Ertapenem , ZOsyn) Blood Cx - NTD CXR show probable pna sp cx PsA (R imipenem, I levaquin), S. maltophila (S bactrim, levaquin) GT leakage with cellulitis, SP -wound cx MDR/CRE K.pna, MDR PsA (colonizers) Leukocytosis; mild recurrent Hypothermia; SP Chronic resp failure trach/vent dependant asthma Dm2 CVA/TIA w/ hemiplegia Functional quadriplegia CAD CHF GIB s/p multiple EGDs in the past Schizoaffective disorder Dementia Hypothyroidism Non verbal Alzheimer's disease PLAN: -Start empiric IV Vancomycin and Cefepime -06/27 SP Levaquin #5 -06/24 SP IV Amikacin # -06/23 SP Ertapenem #9 and IV Vancomycin #9 -/ SP PO Vancomycin #3 -10/ SP Flagyl #2 - monitor CBC and Temps -wound care per hospital protocol -GI f/u -u/a w/ reflex, Bcx x2, sp cx -CXR Thank you for this consult. [facility] will continue to follow the patient with you during this hospitalization. Subjective Allergies: Coded Allergies: NO KNOWN DRUG ALLERGIES (Verified Allergy, Unknown, 09/11/16) Subjective patient having seizures- concern for status epilepticus patient hypotensive and transferred to ICU- on levophed at 6 mild hypothermia, resolved with warming blanket mild leukocytosis Objective Vital Signs Last 24 Hour Vital Signs Date Time Temp Pulse Resp B/P (MAP) Pulse Ox O2 Delivery O2 Flow Rate FiO2 06/30/19 11:30 73 20 114/47 (69) 98 06/30/19 11:15 64 15 92/44 (60) 100 06/30/19 11:00 73 15 121/41 (67) 97 06/30/19 11:00 121/41 06/30/19 10:45 78 18 123/106 (112) 97 06/30/19 10:42 78 16 35 06/30/19 10:40 123/106 06/30/19 10:30 72 19 109/93 (98) 98 06/30/19 10:15 62/32 06/30/19 10:15 63 16 62/32 (42) 100 06/30/19 10:00 71 16 111/95 (100) 99 06/30/19 10:00 68/34 06/30/19 09:45 71 25 91/59 (70) 98 06/30/19 09:30 71 17 102/37 (58) 98 06/30/19 09:15 71 19 108/49 (68) 99 06/30/19 09:00 71 15 96/39 (58) 98 06/30/19 09:00 82/36 06/30/19 08:58 72 19 35 06/30/19 08:45 72 18 94/31 (52) 98 06/30/19 08:30 71 17 106/42 (63) 97 06/30/19 08:15 72 18 103/64 (77) 98 06/30/19 08:00 35 06/30/19 08:00 103/64 06/30/19 08:00 Mechanical Ventilator 06/30/19 08:00 99.7 71 15 97/70 (79) 99 06/30/19 07:45 72 18 106/91 (96) 99 06/30/19 07:32 69 06/30/19 07:30 70 19 104/85 (91) 99 06/30/19 07:15 72 21 104/68 (80) 96 06/30/19 07:00 76 18 110/52 (71) 99 06/30/19 07:00 73 17 35 06/30/19 07:00 104/68 06/30/19 06:30 77 16 103/58 (73) 98 06/30/19 06:15 81 17 112/57 (75) 99 06/30/19 06:00 80 19 74/53 (60) 99 06/30/19 06:00 74/53 06/30/19 05:45 77 18 88/55 (66) 98 06/30/19 05:30 80 15 112/74 (87) 99 06/30/19 05:25 71 16 35 06/30/19 05:00 106/45 06/30/19 05:00 79 11 106/45 (65) 98 06/30/19 04:45 73 0 116/47 (70) 100 06/30/19 04:30 80 14 120/55 (76) 98 06/30/19 04:15 80 16 110/47 (68) 100 06/30/19 04:00 98.0 84 16 110/48 (68) 98 06/30/19 04:00 Mechanical Ventilator 06/30/19 04:00 110/48 06/30/19 04:00 35 06/30/19 04:00 77 06/30/19 03:30 64 16 35 06/30/19 03:30 80 16 108/42 (64) 98 06/30/19 03:00 72 16 112/46 (68) 100 06/30/19 03:00 112/46 06/30/19 02:45 71 16 119/46 (70) 100 06/30/19 02:30 71 12 116/44 (68) 100 06/30/19 02:15 74 15 109/46 (67) 100 06/30/19 02:00 73 16 112/53 (72) 100 06/30/19 02:00 112/53 06/30/19 01:45 71 16 87/41 (56) 100 06/30/19 01:30 71 7 101/48 (65) 100 06/30/19 01:13 73 16 35 06/30/19 01:00 71 13 102/49 (66) 100 06/30/19 01:00 102/49 06/30/19 00:30 70 14 98/50 (66) 100 06/30/19 00:00 98.0 70 15 97/41 (59) 100 06/30/19 00:00 35 06/30/19 00:00 100/47 06/30/19 00:00 Mechanical Ventilator 06/30/19 00:00 71 06/29/19 23:45 70 16 105/38 (60) 100 06/29/19 23:30 70 16 121/51 (74) 100 06/29/19 23:30 70 16 121/51 (74) 100 06/29/19 23:15 70 16 114/58 (76) 100 06/29/19 23:00 64 16 140/63 (88) 100 06/29/19 23:00 114/58 06/29/19 22:55 62 16 35 06/29/19 22:45 49 16 127/63 (84) 99 06/29/19 22:35 54/31 06/29/19 22:30 59 16 54/31 (39) 100 06/29/19 22:15 61 16 59/31 (40) 100 06/29/19 22:00 75 14 112/53 (72) 100 06/29/19 21:45 70 16 79/38 (52) 97 06/29/19 21:30 71 16 111/44 (66) 99 06/29/19 21:15 75 16 108/51 (70) 99 06/29/19 21:00 69 16 97/36 (56) 100 06/29/19 20:46 67 16 35 06/29/19 20:45 65 16 94/55 (68) 98 06/29/19 20:30 70 16 96/48 (64) 100 06/29/19 20:15 76 19 120/36 (64) 100 06/29/19 20:00 35 06/29/19 20:00 Mechanical Ventilator 06/29/19 20:00 97.5 72 17 114/57 (76) 100 06/29/19 19:50 66 06/29/19 19:30 65 16 35 06/29/19 17:00 85 18 30 06/29/19 16:00 97.4 76 20 153/70 (97) 97 06/29/19 16:00 35 06/29/19 16:00 Mechanical Ventilator 06/29/19 15:31 80 06/29/19 15:29 80 16 30 06/29/19 13:28 66 17 30 06/29/19 13:27 66 16 99 Mechanical Ventilator 30 06/29/19 12:00 35 06/29/19 12:00 52 06/29/19 12:00 97.6 54 18 95/49 (64) 100 06/29/19 12:00 Mechanical Ventilator Height (Feet): 5 Height (Inches): 8.00 Weight (Pounds): 196 Objective Gen: On vent in IVU HEENT: NCAT, MMM, PERRL, No Oral lesion, no scleral icterus NECK: supple, No LAD, No JVD, Trached LUNGS: Coarse B/L, No W/C CARDS: RRR, S1, S2, No M/R/G, ABD: Soft, NT, ND, No R/G, + BS, No HSM, No Masses, PEG : Deferred Ext: C/C/E, Pulses 2+ B/L (DP, Rad): NEURO: A/O x 0, no following SKIN: Warm/dry, No rashes Laboratory Tests Test 06/30/19 04:15 White Blood Count 12.7 K/UL (4.8-10.8) H Red Blood Count 2.85 M/UL (4.70-6.10) L Hemoglobin 8.2 G/DL (14.2-18.0) L Hematocrit 24.6 % (42.0-52.0) L Mean Corpuscular Volume 86 FL (80-99) Mean Corpuscular Hemoglobin 28.7 PG (27.0-31.0) Mean Corpuscular Hemoglobin Concent 33.2 G/DL (32.0-36.0) Red Cell Distribution Width 16.3 % (11.6-14.8) H Platelet Count 337 K/UL (150-450) Mean Platelet Volume 7.5 FL (6.5-10.1) Neutrophils (%) (Auto) % (45.0-75.0) Lymphocytes (%) (Auto) % (20.0-45.0) Monocytes (%) (Auto) % (1.0-10.0) Eosinophils (%) (Auto) % (0.0-3.0) Basophils (%) (Auto) % (0.0-2.0) Differential Total Cells Counted 100 Neutrophils % (Manual) 90 % (45-75) H Lymphocytes % (Manual) 3 % (20-45) L Monocytes % (Manual) 7 % (1-10) Eosinophils % (Manual) 0 % (0-3) Basophils % (Manual) 0 % (0-2) Band Neutrophils 0 % (0-8) Platelet Estimate Adequate Platelet Morphology Normal Anisocytosis 1+ Sodium Level 136 MMOL/L (136-145) Potassium Level 3.8 MMOL/L (3.5-5.1) Chloride Level 106 MMOL/L (98-107) Carbon Dioxide Level 22 MMOL/L (21-32) Anion Gap 8 mmol/L (5-15) Blood Urea Nitrogen 17 mg/dL (7-18) Creatinine 1.3 MG/DL (0.55-1.30) Estimat Glomerular Filtration Rate 54.6 mL/min (>60) Glucose Level 228 MG/DL (74-106) #H Calcium Level 8.4 MG/DL (8.5-10.1) L Current Medications Medications (Trade) Dose Ordered Sig/Wanda Route PRN Reason Start Time Stop Time Status Last Admin Dose Admin Acetaminophen (Tylenol) 650 mg Q4H PRN GT fever (temp>100.5F) 06/29/19 19:33 07/29/19 19:32 Chlorhexidine Gluconate (Jasmin-Hex 2%) 1 applic DAILY@2000 TOPIC 06/29/19 20:00 07/20/19 19:59 06/29/19 21:10 Dextrose 1,000 ml @ 50 mls/hr Q20H IV 06/29/19 19:32 07/29/19 19:31 06/29/19 21:09 Levothyroxine Sodium (Synthroid) 88 mcg DAILY@0630 GT 06/30/19 06:30 07/20/19 06:29 06/30/19 06:28 Lorazepam (Ativan 2mg/ml 1ml) 2 mg Q4H PRN IVP For Seizures 06/29/19 19:33 07/06/19 19:32 Midodrine (Pro-Amatine) 2.5 mg EVERY 8 HOURS GT 06/29/19 22:00 07/17/19 12:59 06/30/19 06:28 Norepinephrine Bitartrate 4 mg/ Dextrose 250 ml @ 0 mls/hr Q24H IV 06/29/19 22:30 07/29/19 22:29 06/29/19 22:35 Ondansetron HCl (Zofran) 4 mg Q6H PRN IVP Nausea & Vomiting 06/29/19 19:33 07/29/19 19:32 Pantoprazole (Protonix) 40 mg EVERY 12 HOURS IVP 06/29/19 21:00 07/21/19 08:59 06/30/19 08:13 Phenobarbital (PHENobarbital) 90 mg DAILY IVP 06/30/19 09:00 07/30/19 08:59 06/30/19 08:14 Phenytoin (Dilantin) 100 mg Q8HR GT 06/29/19 22:00 07/26/19 21:59 06/30/19 06:28 Polyethylene Glycol (Miralax) 17 gm DAILYPRN PRN GT Constipation 06/29/19 19:33 07/29/19 19:32 Sucralfate (Carafate) 1 gm EVERY 8 HOURS GT 06/29/19 22:00 07/21/19 08:59 06/30/19 06:28 Zinc Oxide (Zinc Oxide) 1 applic QHS TOPIC 06/29/19 21:00 07/21/19 08:59 06/29/19 21:49 Lisy Lai M.D. Jun 30, 2019 12:08
--- NOTE | 2019-06-30 12:30 | Procedure Note ---
DATE OF PROCEDURE: 06/27/2019 SURGEON: Vitaliy Wilson M.D. PROCEDURE: Colonoscopy. ANESTHESIA: Per Ana Lilia BAEZA. INSTRUMENT: Olympus adult flexible colonoscope. INDICATION: GI bleeding. REASON FOR PROCEDURE: The procedure, risks, benefits, and possible consequences, including hemorrhage, aspiration, perforation and infection, and alternative treatments, were explained to the patient/legal guardian by Dr. Vitaliy Wilson and the patient/legal guardian understood and accepted these risks. DESCRIPTION OF PROCEDURE: After informed consent was obtained and the patient was adequately sedated, first rectal exam was performed, which was normal. Then, the scope was advanced from the rectum into what seems to be ascending colon area. We could not pass the scope beyond this point because of the patient's positioning and body habitus. No obvious blood or blood products was seen in the colon. The fluid in the colon has been mainly 00:34. The patient had some scattered diverticulosis in the left colon without any obvious diverticulitis. Retroflexion of rectum showed evidence of internal hemorrhoids. SUMMARY OF FINDINGS: 1. Incomplete colonoscopy examination. 2. Diverticulosis. 3. Internal hemorrhoids. RECOMMENDATIONS: Resume G-tube feeding. Okay to discharge from GI standpoint. Follow up as an outpatient. I want to thank, Dr. Gato Viveros for this kind referral. Vitaliy Wilson M.D. DR: ROCAEL JOB#: [id number] CC: Gato Viveros D.O.
[2019-06-30] MEDS: Cefepime HCl 1 GM in D5W 55 ML IVPB SCH ×2 (13:40→20:10)
--- NOTE | 2019-06-30 13:47 | GI Progress Note ---
Assessment/Plan Problems: (1) Severe sepsis ICD Codes: A41.9 - Sepsis, unspecified organism; R65.20 - Severe sepsis without septic shock SNOMED: 53949685 (2) GT SITE LEAKING (3) Alzheimer's dementia ICD Codes: G30.9 - Alzheimer's disease, unspecified SNOMED: 60583321 (4) Upper GI bleed ICD Codes: K92.2 - Upper gastrointestinal hemorrhage SNOMED: 23076033 (5) Severe erosive esophagitis (6) Malfunction of gastrostomy tube ICD Codes: K94.23 - Gastrostomy malfunction SNOMED: 743722744 (7) Anemia ICD Codes: D64.9 - Anemia, unspecified SNOMED: 996744000 Status: unchanged Status Narrative Discussed with Dr. Wilson. Assessment/Plan s/p EGD/colonoscopy patient now in ICU for hypotension on pressors GTFs GT changed at the bedside to 20 Fr. protonix 40 mg Q12 Carafate fu CBC, stable H&H We will follow with additional recommendations postprocedure post The patient was seen and examined at bedside and all new and available data was reviewed in the patients chart. I agree with the above findings, impression and plan. (Patient seen earlier today. Signature stamp does not reflect patient encounter time.). - Vitaliy Wilson MD Subjective Subjective limited Objective Last 24 Hour Vital Signs Date Time Temp Pulse Resp B/P (MAP) Pulse Ox O2 Delivery O2 Flow Rate FiO2 06/30/19 13:00 122/67 06/30/19 13:00 77 15 122/67 (85) 99 06/30/19 12:58 75 16 35 06/30/19 12:45 84 18 130/70 (90) 100 06/30/19 12:30 81 26 137/78 (97) 97 06/30/19 12:15 76 18 127/66 (86) 98 06/30/19 12:12 68 06/30/19 12:08 125/53 06/30/19 12:00 35 06/30/19 12:00 98.9 79 18 125/53 (77) 97 06/30/19 12:00 127/66 06/30/19 12:00 Mechanical Ventilator 06/30/19 11:45 77 23 120/57 (78) 98 06/30/19 11:30 73 20 114/47 (69) 98 06/30/19 11:15 64 15 92/44 (60) 100 06/30/19 11:00 73 15 121/41 (67) 97 06/30/19 11:00 121/41 06/30/19 10:45 78 18 123/106 (112) 97 06/30/19 10:42 78 16 35 06/30/19 10:40 123/106 06/30/19 10:30 72 19 109/93 (98) 98 06/30/19 10:15 62/32 06/30/19 10:15 63 16 62/32 (42) 100 06/30/19 10:00 71 16 111/95 (100) 99 06/30/19 10:00 68/34 06/30/19 09:45 71 25 91/59 (70) 98 06/30/19 09:30 71 17 102/37 (58) 98 06/30/19 09:15 71 19 108/49 (68) 99 06/30/19 09:00 71 15 96/39 (58) 98 06/30/19 09:00 82/36 06/30/19 08:58 72 19 35 06/30/19 08:45 72 18 94/31 (52) 98 06/30/19 08:30 71 17 106/42 (63) 97 06/30/19 08:15 72 18 103/64 (77) 98 06/30/19 08:00 35 06/30/19 08:00 103/64 06/30/19 08:00 Mechanical Ventilator 06/30/19 08:00 99.7 71 15 97/70 (79) 99 06/30/19 07:45 72 18 106/91 (96) 99 06/30/19 07:32 69 06/30/19 07:30 70 19 104/85 (91) 99 06/30/19 07:15 72 21 104/68 (80) 96 06/30/19 07:00 76 18 110/52 (71) 99 06/30/19 07:00 73 17 35 06/30/19 07:00 104/68 06/30/19 06:30 77 16 103/58 (73) 98 06/30/19 06:15 81 17 112/57 (75) 99 06/30/19 06:00 80 19 74/53 (60) 99 06/30/19 06:00 74/53 06/30/19 05:45 77 18 88/55 (66) 98 06/30/19 05:30 80 15 112/74 (87) 99 06/30/19 05:25 71 16 35 06/30/19 05:00 106/45 06/30/19 05:00 79 11 106/45 (65) 98 06/30/19 04:45 73 0 116/47 (70) 100 06/30/19 04:30 80 14 120/55 (76) 98 06/30/19 04:15 80 16 110/47 (68) 100 06/30/19 04:00 98.0 84 16 110/48 (68) 98 06/30/19 04:00 Mechanical Ventilator 06/30/19 04:00 110/48 06/30/19 04:00 35 06/30/19 04:00 77 06/30/19 03:30 64 16 35 06/30/19 03:30 80 16 108/42 (64) 98 06/30/19 03:00 72 16 112/46 (68) 100 06/30/19 03:00 112/46 06/30/19 02:45 71 16 119/46 (70) 100 06/30/19 02:30 71 12 116/44 (68) 100 06/30/19 02:15 74 15 109/46 (67) 100 06/30/19 02:00 73 16 112/53 (72) 100 06/30/19 02:00 112/53 06/30/19 01:45 71 16 87/41 (56) 100 06/30/19 01:30 71 7 101/48 (65) 100 06/30/19 01:13 73 16 35 06/30/19 01:00 71 13 102/49 (66) 100 06/30/19 01:00 102/49 06/30/19 00:30 70 14 98/50 (66) 100 06/30/19 00:00 98.0 70 15 97/41 (59) 100 06/30/19 00:00 35 06/30/19 00:00 100/47 06/30/19 00:00 Mechanical Ventilator 06/30/19 00:00 71 06/29/19 23:45 70 16 105/38 (60) 100 06/29/19 23:30 70 16 121/51 (74) 100 06/29/19 23:30 70 16 121/51 (74) 100 06/29/19 23:15 70 16 114/58 (76) 100 06/29/19 23:00 64 16 140/63 (88) 100 06/29/19 23:00 114/58 06/29/19 22:55 62 16 35 06/29/19 22:45 49 16 127/63 (84) 99 06/29/19 22:35 54/31 06/29/19 22:30 59 16 54/31 (39) 100 06/29/19 22:15 61 16 59/31 (40) 100 06/29/19 22:00 75 14 112/53 (72) 100 06/29/19 21:45 70 16 79/38 (52) 97 06/29/19 21:30 71 16 111/44 (66) 99 06/29/19 21:15 75 16 108/51 (70) 99 06/29/19 21:00 69 16 97/36 (56) 100 06/29/19 20:46 67 16 35 06/29/19 20:45 65 16 94/55 (68) 98 06/29/19 20:30 70 16 96/48 (64) 100 06/29/19 20:15 76 19 120/36 (64) 100 06/29/19 20:00 35 06/29/19 20:00 Mechanical Ventilator 06/29/19 20:00 97.5 72 17 114/57 (76) 100 06/29/19 19:50 66 06/29/19 19:30 65 16 35 06/29/19 17:00 85 18 30 06/29/19 16:00 97.4 76 20 153/70 (97) 97 06/29/19 16:00 35 06/29/19 16:00 Mechanical Ventilator 06/29/19 15:31 80 06/29/19 15:29 80 16 30 Intake and Output 06/29/19 06/30/19 19:00 07:00 Intake Total 1115 ml 1116.25 ml Output Total 1075 ml 770 ml Balance 40 ml 346.25 ml Intake Free Water 150 ml IV Total 450 ml 661.25 ml Tube Feeding 515 ml 455 ml Output Urine Total 1075 ml 770 ml # Bowel Movements 1 1 Laboratory Tests Test 06/30/19 04:15 White Blood Count 12.7 K/UL (4.8-10.8) H Red Blood Count 2.85 M/UL (4.70-6.10) L Hemoglobin 8.2 G/DL (14.2-18.0) L Hematocrit 24.6 % (42.0-52.0) L Mean Corpuscular Volume 86 FL (80-99) Mean Corpuscular Hemoglobin 28.7 PG (27.0-31.0) Mean Corpuscular Hemoglobin Concent 33.2 G/DL (32.0-36.0) Red Cell Distribution Width 16.3 % (11.6-14.8) H Platelet Count 337 K/UL (150-450) Mean Platelet Volume 7.5 FL (6.5-10.1) Neutrophils (%) (Auto) % (45.0-75.0) Lymphocytes (%) (Auto) % (20.0-45.0) Monocytes (%) (Auto) % (1.0-10.0) Eosinophils (%) (Auto) % (0.0-3.0) Basophils (%) (Auto) % (0.0-2.0) Differential Total Cells Counted 100 Neutrophils % (Manual) 90 % (45-75) H Lymphocytes % (Manual) 3 % (20-45) L Monocytes % (Manual) 7 % (1-10) Eosinophils % (Manual) 0 % (0-3) Basophils % (Manual) 0 % (0-2) Band Neutrophils 0 % (0-8) Platelet Estimate Adequate Platelet Morphology Normal Anisocytosis 1+ Sodium Level 136 MMOL/L (136-145) Potassium Level 3.8 MMOL/L (3.5-5.1) Chloride Level 106 MMOL/L (98-107) Carbon Dioxide Level 22 MMOL/L (21-32) Anion Gap 8 mmol/L (5-15) Blood Urea Nitrogen 17 mg/dL (7-18) Creatinine 1.3 MG/DL (0.55-1.30) Estimat Glomerular Filtration Rate 54.6 mL/min (>60) Glucose Level 228 MG/DL (74-106) #H Calcium Level 8.4 MG/DL (8.5-10.1) L Height (Feet): 5 Height (Inches): 8.00 Weight (Pounds): 196 General Appearance: no apparent distress Cardiovascular: normal rate Respiratory/Chest: normal breath sounds, no respiratory distress Abdominal Exam: normal bowel sounds, non tender, soft Extremities: non-tender Emanuel Quesada NP Jun 30, 2019 13:47
[2019-06-30] MEDS ORDERED: Vancomycin 1.5gm/NS Premix IVPB ONE (14:30)
--- NOTE | 2019-06-30 14:33 | Nephrology Progress Note ---
Assessment/Plan Problem List: (1) Septic shock (2) Hypothyroidism (3) Upper GI bleed (4) Respiratory failure, [id number] (5) Anemia Assessment Sepsis Shock on pressors GI Bleed Low Na and high K UTI HypoThyroidism Tracheostomy dependence Respiratory failure, [id number] Alzheimer's Feeding by G-tube Plan monitor dilantin and phenobarb level Albumin bolus as Cr rising consider transfusion as needed off pressors- On Midodrine On GT feeding On Reglan fluid challenge as needed adjust IV fluids transfuse as needed Monitor lytes and renal parametrs urine studies per orders Subjective ROS Limited/Unobtainable: Yes Interval Events/Complaints in icu for seizure Objective Objective Last 24 Hour Vital Signs Date Time Temp Pulse Resp B/P (MAP) Pulse Ox O2 Delivery O2 Flow Rate FiO2 06/30/19 13:00 122/67 06/30/19 13:00 77 15 122/67 (85) 99 06/30/19 12:58 75 16 35 06/30/19 12:45 84 18 130/70 (90) 100 06/30/19 12:30 81 26 137/78 (97) 97 06/30/19 12:15 76 18 127/66 (86) 98 06/30/19 12:12 68 06/30/19 12:08 125/53 06/30/19 12:00 35 06/30/19 12:00 98.9 79 18 125/53 (77) 97 06/30/19 12:00 127/66 06/30/19 12:00 Mechanical Ventilator 06/30/19 11:45 77 23 120/57 (78) 98 06/30/19 11:30 73 20 114/47 (69) 98 06/30/19 11:15 64 15 92/44 (60) 100 06/30/19 11:00 73 15 121/41 (67) 97 06/30/19 11:00 121/41 06/30/19 10:45 78 18 123/106 (112) 97 06/30/19 10:42 78 16 35 06/30/19 10:40 123/106 06/30/19 10:30 72 19 109/93 (98) 98 06/30/19 10:15 62/32 06/30/19 10:15 63 16 62/32 (42) 100 06/30/19 10:00 71 16 111/95 (100) 99 06/30/19 10:00 68/34 06/30/19 09:45 71 25 91/59 (70) 98 06/30/19 09:30 71 17 102/37 (58) 98 06/30/19 09:15 71 19 108/49 (68) 99 06/30/19 09:00 71 15 96/39 (58) 98 06/30/19 09:00 82/36 06/30/19 08:58 72 19 35 06/30/19 08:45 72 18 94/31 (52) 98 06/30/19 08:30 71 17 106/42 (63) 97 06/30/19 08:15 72 18 103/64 (77) 98 06/30/19 08:00 35 06/30/19 08:00 103/64 06/30/19 08:00 Mechanical Ventilator 06/30/19 08:00 99.7 71 15 97/70 (79) 99 06/30/19 07:45 72 18 106/91 (96) 99 06/30/19 07:32 69 06/30/19 07:30 70 19 104/85 (91) 99 06/30/19 07:15 72 21 104/68 (80) 96 06/30/19 07:00 76 18 110/52 (71) 99 06/30/19 07:00 73 17 35 06/30/19 07:00 104/68 06/30/19 06:30 77 16 103/58 (73) 98 06/30/19 06:15 81 17 112/57 (75) 99 06/30/19 06:00 80 19 74/53 (60) 99 06/30/19 06:00 74/53 06/30/19 05:45 77 18 88/55 (66) 98 06/30/19 05:30 80 15 112/74 (87) 99 06/30/19 05:25 71 16 35 06/30/19 05:00 106/45 06/30/19 05:00 79 11 106/45 (65) 98 06/30/19 04:45 73 0 116/47 (70) 100 06/30/19 04:30 80 14 120/55 (76) 98 06/30/19 04:15 80 16 110/47 (68) 100 06/30/19 04:00 98.0 84 16 110/48 (68) 98 06/30/19 04:00 Mechanical Ventilator 06/30/19 04:00 110/48 06/30/19 04:00 35 06/30/19 04:00 77 06/30/19 03:30 64 16 35 06/30/19 03:30 80 16 108/42 (64) 98 06/30/19 03:00 72 16 112/46 (68) 100 06/30/19 03:00 112/46 06/30/19 02:45 71 16 119/46 (70) 100 06/30/19 02:30 71 12 116/44 (68) 100 06/30/19 02:15 74 15 109/46 (67) 100 06/30/19 02:00 73 16 112/53 (72) 100 06/30/19 02:00 112/53 06/30/19 01:45 71 16 87/41 (56) 100 06/30/19 01:30 71 7 101/48 (65) 100 06/30/19 01:13 73 16 35 06/30/19 01:00 71 13 102/49 (66) 100 06/30/19 01:00 102/49 06/30/19 00:30 70 14 98/50 (66) 100 06/30/19 00:00 98.0 70 15 97/41 (59) 100 06/30/19 00:00 35 06/30/19 00:00 100/47 06/30/19 00:00 Mechanical Ventilator 06/30/19 00:00 71 06/29/19 23:45 70 16 105/38 (60) 100 06/29/19 23:30 70 16 121/51 (74) 100 06/29/19 23:30 70 16 121/51 (74) 100 06/29/19 23:15 70 16 114/58 (76) 100 06/29/19 23:00 64 16 140/63 (88) 100 06/29/19 23:00 114/58 06/29/19 22:55 62 16 35 06/29/19 22:45 49 16 127/63 (84) 99 06/29/19 22:35 54/31 06/29/19 22:30 59 16 54/31 (39) 100 06/29/19 22:15 61 16 59/31 (40) 100 06/29/19 22:00 75 14 112/53 (72) 100 06/29/19 21:45 70 16 79/38 (52) 97 06/29/19 21:30 71 16 111/44 (66) 99 06/29/19 21:15 75 16 108/51 (70) 99 06/29/19 21:00 69 16 97/36 (56) 100 06/29/19 20:46 67 16 35 06/29/19 20:45 65 16 94/55 (68) 98 06/29/19 20:30 70 16 96/48 (64) 100 06/29/19 20:15 76 19 120/36 (64) 100 06/29/19 20:00 35 06/29/19 20:00 Mechanical Ventilator 06/29/19 20:00 97.5 72 17 114/57 (76) 100 06/29/19 19:50 66 06/29/19 19:30 65 16 35 06/29/19 17:00 85 18 30 06/29/19 16:00 97.4 76 20 153/70 (97) 97 06/29/19 16:00 35 06/29/19 16:00 Mechanical Ventilator 06/29/19 15:31 80 06/29/19 15:29 80 16 30 Intake and Output 06/29/19 06/30/19 19:00 07:00 Intake Total 1115 ml 1116.25 ml Output Total 1075 ml 770 ml Balance 40 ml 346.25 ml Intake Free Water 150 ml IV Total 450 ml 661.25 ml Tube Feeding 515 ml 455 ml Output Urine Total 1075 ml 770 ml # Bowel Movements 1 1 Laboratory Tests 06/30/19 04:15: White Blood Count 12.7H, Red Blood Count 2.85L, Hemoglobin 8.2L, Hematocrit 24.6L, Mean Corpuscular Volume 86, Mean Corpuscular Hemoglobin 28.7, Mean Corpuscular Hemoglobin Concent 33.2, Red Cell Distribution Width 16.3H, Platelet Count 337, Mean Platelet Volume 7.5, Neutrophils (%) (Auto) , Lymphocytes (%) (Auto) , Monocytes (%) (Auto) , Eosinophils (%) (Auto) , Basophils (%) (Auto) , Differential Total Cells Counted 100, Neutrophils % ( Manual) 90H, Lymphocytes % (Manual) 3L, Monocytes % (Manual) 7, Eosinophils % ( Manual) 0, Basophils % (Manual) 0, Band Neutrophils 0, Platelet Estimate Adequate, Platelet Morphology Normal, Anisocytosis 1+, Sodium Level 136, Potassium Level 3.8, Chloride Level 106, Carbon Dioxide Level 22, Anion Gap 8, Blood Urea Nitrogen 17, Creatinine 1.3, Estimat Glomerular Filtration Rate 54.6 , Glucose Level 228#H, Calcium Level 8.4L Height (Feet): 5 Height (Inches): 8.00 Weight (Pounds): 196 General Appearance: no apparent distress Cardiovascular: normal rate Respiratory/Chest: decreased breath sounds Abdomen: distended Objective no change Sav Salvador MD Jun 30, 2019 14:33
--- NOTE | 2019-06-30 14:47 | Surgery Progress Note ---
Surgery Progress Note Subjective Symptoms: worse Additional Comments Patient seen and examined bedside. I suspected seizure activity and transferred to the intensive care unit hypotensive and tachycardic. On pressors. Seen by neurology. Detailed head to toe examination done to evaluate for etiology of acute worsening decline. Objective Last 24 Hour Vital Signs Date Time Temp Pulse Resp B/P (MAP) Pulse Ox O2 Delivery O2 Flow Rate FiO2 06/30/19 13:00 122/67 06/30/19 13:00 77 15 122/67 (85) 99 06/30/19 12:58 75 16 35 06/30/19 12:45 84 18 130/70 (90) 100 06/30/19 12:30 81 26 137/78 (97) 97 06/30/19 12:15 76 18 127/66 (86) 98 06/30/19 12:12 68 06/30/19 12:08 125/53 06/30/19 12:00 35 06/30/19 12:00 98.9 79 18 125/53 (77) 97 06/30/19 12:00 127/66 06/30/19 12:00 Mechanical Ventilator 06/30/19 11:45 77 23 120/57 (78) 98 06/30/19 11:30 73 20 114/47 (69) 98 06/30/19 11:15 64 15 92/44 (60) 100 06/30/19 11:00 73 15 121/41 (67) 97 06/30/19 11:00 121/41 06/30/19 10:45 78 18 123/106 (112) 97 06/30/19 10:42 78 16 35 06/30/19 10:40 123/106 06/30/19 10:30 72 19 109/93 (98) 98 06/30/19 10:15 62/32 06/30/19 10:15 63 16 62/32 (42) 100 06/30/19 10:00 71 16 111/95 (100) 99 06/30/19 10:00 68/34 06/30/19 09:45 71 25 91/59 (70) 98 06/30/19 09:30 71 17 102/37 (58) 98 06/30/19 09:15 71 19 108/49 (68) 99 06/30/19 09:00 71 15 96/39 (58) 98 06/30/19 09:00 82/36 06/30/19 08:58 72 19 35 06/30/19 08:45 72 18 94/31 (52) 98 06/30/19 08:30 71 17 106/42 (63) 97 06/30/19 08:15 72 18 103/64 (77) 98 06/30/19 08:00 35 06/30/19 08:00 103/64 06/30/19 08:00 Mechanical Ventilator 06/30/19 08:00 99.7 71 15 97/70 (79) 99 06/30/19 07:45 72 18 106/91 (96) 99 06/30/19 07:32 69 06/30/19 07:30 70 19 104/85 (91) 99 06/30/19 07:15 72 21 104/68 (80) 96 06/30/19 07:00 76 18 110/52 (71) 99 06/30/19 07:00 73 17 35 06/30/19 07:00 104/68 06/30/19 06:30 77 16 103/58 (73) 98 06/30/19 06:15 81 17 112/57 (75) 99 06/30/19 06:00 80 19 74/53 (60) 99 06/30/19 06:00 74/53 06/30/19 05:45 77 18 88/55 (66) 98 06/30/19 05:30 80 15 112/74 (87) 99 06/30/19 05:25 71 16 35 06/30/19 05:00 106/45 06/30/19 05:00 79 11 106/45 (65) 98 06/30/19 04:45 73 0 116/47 (70) 100 06/30/19 04:30 80 14 120/55 (76) 98 06/30/19 04:15 80 16 110/47 (68) 100 06/30/19 04:00 98.0 84 16 110/48 (68) 98 06/30/19 04:00 Mechanical Ventilator 06/30/19 04:00 110/48 06/30/19 04:00 35 06/30/19 04:00 77 06/30/19 03:30 64 16 35 06/30/19 03:30 80 16 108/42 (64) 98 06/30/19 03:00 72 16 112/46 (68) 100 06/30/19 03:00 112/46 06/30/19 02:45 71 16 119/46 (70) 100 06/30/19 02:30 71 12 116/44 (68) 100 06/30/19 02:15 74 15 109/46 (67) 100 06/30/19 02:00 73 16 112/53 (72) 100 06/30/19 02:00 112/53 06/30/19 01:45 71 16 87/41 (56) 100 06/30/19 01:30 71 7 101/48 (65) 100 06/30/19 01:13 73 16 35 06/30/19 01:00 71 13 102/49 (66) 100 06/30/19 01:00 102/49 06/30/19 00:30 70 14 98/50 (66) 100 06/30/19 00:00 98.0 70 15 97/41 (59) 100 06/30/19 00:00 35 06/30/19 00:00 100/47 06/30/19 00:00 Mechanical Ventilator 06/30/19 00:00 71 06/29/19 23:45 70 16 105/38 (60) 100 06/29/19 23:30 70 16 121/51 (74) 100 06/29/19 23:30 70 16 121/51 (74) 100 06/29/19 23:15 70 16 114/58 (76) 100 06/29/19 23:00 64 16 140/63 (88) 100 06/29/19 23:00 114/58 06/29/19 22:55 62 16 35 06/29/19 22:45 49 16 127/63 (84) 99 06/29/19 22:35 54/31 06/29/19 22:30 59 16 54/31 (39) 100 06/29/19 22:15 61 16 59/31 (40) 100 06/29/19 22:00 75 14 112/53 (72) 100 06/29/19 21:45 70 16 79/38 (52) 97 06/29/19 21:30 71 16 111/44 (66) 99 06/29/19 21:15 75 16 108/51 (70) 99 06/29/19 21:00 69 16 97/36 (56) 100 06/29/19 20:46 67 16 35 06/29/19 20:45 65 16 94/55 (68) 98 06/29/19 20:30 70 16 96/48 (64) 100 06/29/19 20:15 76 19 120/36 (64) 100 06/29/19 20:00 35 06/29/19 20:00 Mechanical Ventilator 06/29/19 20:00 97.5 72 17 114/57 (76) 100 06/29/19 19:50 66 06/29/19 19:30 65 16 35 06/29/19 17:00 85 18 30 06/29/19 16:00 97.4 76 20 153/70 (97) 97 06/29/19 16:00 35 06/29/19 16:00 Mechanical Ventilator 06/29/19 15:31 80 06/29/19 15:29 80 16 30 I&O Intake and Output 06/29/19 06/30/19 19:00 07:00 Intake Total 1115 ml 1116.25 ml Output Total 1075 ml 770 ml Balance 40 ml 346.25 ml Intake Free Water 150 ml IV Total 450 ml 661.25 ml Tube Feeding 515 ml 455 ml Output Urine Total 1075 ml 770 ml # Bowel Movements 1 1 Dressing: dry Wound: clean Cardiovascular: RSR Respiratory: decreased breath sounds Abdomen: soft, distended, decreased bowel sounds Extremities: no cyanosis, other Laboratory Tests Test 06/30/19 04:15 White Blood Count 12.7 K/UL (4.8-10.8) H Red Blood Count 2.85 M/UL (4.70-6.10) L Hemoglobin 8.2 G/DL (14.2-18.0) L Hematocrit 24.6 % (42.0-52.0) L Mean Corpuscular Volume 86 FL (80-99) Mean Corpuscular Hemoglobin 28.7 PG (27.0-31.0) Mean Corpuscular Hemoglobin Concent 33.2 G/DL (32.0-36.0) Red Cell Distribution Width 16.3 % (11.6-14.8) H Platelet Count 337 K/UL (150-450) Mean Platelet Volume 7.5 FL (6.5-10.1) Neutrophils (%) (Auto) % (45.0-75.0) Lymphocytes (%) (Auto) % (20.0-45.0) Monocytes (%) (Auto) % (1.0-10.0) Eosinophils (%) (Auto) % (0.0-3.0) Basophils (%) (Auto) % (0.0-2.0) Differential Total Cells Counted 100 Neutrophils % (Manual) 90 % (45-75) H Lymphocytes % (Manual) 3 % (20-45) L Monocytes % (Manual) 7 % (1-10) Eosinophils % (Manual) 0 % (0-3) Basophils % (Manual) 0 % (0-2) Band Neutrophils 0 % (0-8) Platelet Estimate Adequate Platelet Morphology Normal Anisocytosis 1+ Sodium Level 136 MMOL/L (136-145) Potassium Level 3.8 MMOL/L (3.5-5.1) Chloride Level 106 MMOL/L (98-107) Carbon Dioxide Level 22 MMOL/L (21-32) Anion Gap 8 mmol/L (5-15) Blood Urea Nitrogen 17 mg/dL (7-18) Creatinine 1.3 MG/DL (0.55-1.30) Estimat Glomerular Filtration Rate 54.6 mL/min (>60) Glucose Level 228 MG/DL (74-106) #H Calcium Level 8.4 MG/DL (8.5-10.1) L Plan Problems: (1) Severe protein-calorie malnutrition Assessment & Plan: DAILY ESTIMATED NEEDS: Needs based on Critical care, underweight TF [employer] 56.8 30-35 kcals/kg 5643-5446 total kcals 1.25-2 g protein/kg 71-113.6 g total protein 25-30 mL/kg 2085-8770 total fluid mLs NUTRITION DIAGNOSIS: * Increased kcal/prot intake needs R/T sepsis and underweight status as evidenced by pt adm w/ critically elev WBC (35.7*), febrile, @68% [place] Body Weight. * Swallowing difficulty R/T respiratory status as evidenced by pt vent dep via trach, PEG dep. ENTERAL NUTRITION RECOMMENDATIONS: Nepro @45mL/hr x 22hr to provide 990mL, 1782kcal, 80g pro, 720mL free water -When Hemodynamically stable, start Nepro @ 15mL/hr for 6 hrs. -Advance as tolerated 10mL q 4-6 hrs to goal. -TF @goal meets 100% est needs. -Flush per MD/ HOB >30 degrees. ADDITIONAL RECOMMENDATIONS: * Calibrated bedscale weight for accurate CBW + weekly wt monitoring * Per SNF: Ht of 6'1", Wt 125# (05/2019) * TF recs as above when medically stable * Monitor for cont'd need of renal formula (K 5.5) * Monitor lytes and hydration status. (2) Feeding by G-tube Assessment & Plan: g tube changed (3) Respiratory failure, [id number] (4) Septic shock Assessment & Plan: Acute decline with hypertension tachycardia now on pressors Labs as above Detailed examination done and abdominal distention noted. KUB ordered will follow with recs thank you (5) Severe sepsis (6) GT SITE LEAKING Assessment & Plan: Patient identified worsening G-tube site leakage and cellulitis. This has been noted on prior admissions which is cared for. Plan for placement as below Pt presents with contractures. Skin erosions to abdominal region, and multiple areas of non-blanching erythema. Skin erosion noted to abdomen extending around GT and mostly to L abdominal area, skin is grossly red and excoriated. Furuncle noted to L flank oozing moderate amt purulent exudate. Non-blanchable erythema without fluctuance noted to L lateral malleolus (L) 1.5cm x (W)3cm. Non-blanchable erythema without fluctuance noted to lateral L foot (L)1cm x (W) 1cm. Non-blanchable erythema noted to sacral cleft. No other skin concerns noted. Tx.Plan: Apply Zinc Oxide Paste to GT site and excoriated areas on abd daily and prn. Apply Betadine to Boil L flank Daily .Cover with Optifoam drsg. Change daily and prn. Apply Moisture Barrier Paste to sacrum. Cover with Optifoam drsg. Change every 3 days and prn. Apply Cavilon to Non-blanchable areas L foot and bilat heels. Cover each site with Optifoam drsg. Change every 7 days and prn. Reposition at least every 2hours or as tolerated. Place pillow between knees. Off-load heels with pillow. APM/RENO Mattress overlay. Quirino Bernard Jun 30, 2019 14:47
--- NOTE | 2019-06-30 14:49 | Hematology/Onc Progress Note ---
Assessment/Plan Assessment/Plan ASSESSMENT AND RECOMMENDATIONS # Anemia of chronic disease due to underlying chronic medical issues, multifactorial --> Anemia w/u has been reviewed and c/w acd ferritin 635, tibc 160 --> No evidence of hemolysis is noted, peripheral smear has been reviewed. --> Hgb goal >7. Transfuse prn. --> Epogen or iron at this time is not particularly indicated --> unable to obtain consent, with no family --> r/o hemolysis as well --> hgb 7.5-->8-->8.7-->8.2-->7.8-->8-->7.4-->8.8-->8.3-->8->9.5->8.2 --> 06/26: EGD/COLO with diverticulosis --> spep is negative for bands # Leukocytosis. Likely related to underlying infection versus reactive process. patient with septic shock on admission --> Peripheral has been reviewed--> rouleaux formation on smear --> Medications have been reviewed --> Imaging has been reviewed. CXR shows Suboptimal positioning. No interval consolidation, overt edema or other acute cardiopulmonary findings. --> urine culture with ++uti on cultures provedencia --> Has been started on abx, empiric treatment (ertap/vanc)--> Levo --> wbc is 36-->26k-->9k-->11.6 --> ID recs vanc and cefepime # Thrombocytopenia decreased since admission --> plt count 190-->123k-->101k-->95k-->93k-->120k-->249k --> abx for id # Coagulopathy with elev ptt --> may be due to vit k deficiency, less likely inhibitor # Septic shock poa --> on abx per id --> initially on pressors, now off # Upper GI vomiting bleed in prior admission --> currently appears to have resolved # Trach and PEG --> chronic # Hyperkalemia --> as per renal # Dvt ppx heparin sq (ON HOLD for potential bleed) The timing of this note does not necessarily reflect the time of the patient was seen. Greatly appreciate consultation. Subjective Constitutional: Denies: no symptoms, chills, fever, malaise, weakness, other Respiratory: Denies: no symptoms, cough, shortness of breath, SOB with excertion, SOB at rest, sputum, wheezing, other Gastrointestinal/Abdominal: Denies: no symptoms, abdomen distended, abdominal pain, black stools, tarry stools, blood in stool, constipated, diarrhea, difficulty swallowing, nausea, poor appetite, poor fluid intake, rectal bleeding , vomiting, other Genitourinary: Denies: no symptoms, burning, discharge, frequency, flank pain, hematuria, incontinence, pain, urgency, other Neurologic/Psychiatric: Denies: no symptoms, anxiety, depressed, emotional problems, headache, numbness, paresthesia, pre-existing deficit, seizure, tingling, tremors, weakness, other Endocrine: Denies: no symptoms, excessive sweating, flushing, intolerance to cold, intolerance to heat, increased hunger, increased thirst, increased urine, unexplained weight gain, unexplained weight loss, other Allergies: Coded Allergies: NO KNOWN DRUG ALLERGIES (Verified Allergy, Unknown, 09/11/16) Subjective 06/17: blood transfusion completed, on low dose pressors, no bleeding noted 06/19: liya rn, no major events, cbc reviewed, tube feeds ongoing 06/22: no major changes, no bleeding or night sweats, on abx, in sariah 06/23: no f/c, no bleeding, labs noted, in sariah, hgb 8, plt 120k 06/24: labs reviewed, no bleeding, no night sweats, no bleeding 06/25: heparin held for potential bleed, gt is clamped, no events, no fc 06/26: for egd today with gi, bleeding noted, requiring prbc transf 06/27: gi procedure was done today and noted for diverticulosis, otherwise cbc stable 06/28: remains stable, being treated for gerd, hgb 8, no bleeding 06/29: no bleeding noted, no chills, no night sweats, no fc 06/30: no bleeding, on pressors, no major changes hgb 8.2 Objective Objective Current Medications Medications (Trade) Dose Ordered Sig/Wanda Route PRN Reason Start Time Stop Time Status Last Admin Dose Admin Acetaminophen (Tylenol) 650 mg Q4H PRN GT fever (temp>100.5F) 06/29/19 19:33 07/29/19 19:32 Cefepime HCl 1 gm/ Dextrose 55 ml @ 110 mls/hr EVERY 12 HOURS IVPB 06/30/19 13:30 07/07/19 13:29 06/30/19 13:40 Chlorhexidine Gluconate (Jasmin-Hex 2%) 1 applic DAILY@2000 TOPIC 06/29/19 20:00 07/20/19 19:59 06/29/19 21:10 Dextrose/Sodium Chloride 1,000 ml @ 50 mls/hr Q20H IV 06/30/19 14:30 07/30/19 14:29 Levothyroxine Sodium (Synthroid) 88 mcg DAILY@0630 GT 06/30/19 06:30 07/20/19 06:29 06/30/19 06:28 Lorazepam (Ativan 2mg/ml 1ml) 2 mg Q4H PRN IVP For Seizures 06/29/19 19:33 07/06/19 19:32 Midodrine (Pro-Amatine) 2.5 mg EVERY 8 HOURS GT 06/29/19 22:00 07/17/19 12:59 06/30/19 13:25 Norepinephrine Bitartrate 4 mg/ Dextrose 250 ml @ 0 mls/hr Q24H IV 06/29/19 22:30 07/29/19 22:29 06/30/19 12:08 Ondansetron HCl (Zofran) 4 mg Q6H PRN IVP Nausea & Vomiting 06/29/19 19:33 07/29/19 19:32 Pantoprazole (Protonix) 40 mg EVERY 12 HOURS IVP 06/29/19 21:00 07/21/19 08:59 06/30/19 08:13 Phenobarbital (PHENobarbital) 90 mg DAILY IVP 06/30/19 09:00 07/30/19 08:59 06/30/19 08:14 Phenytoin (Dilantin) 100 mg Q8HR GT 06/29/19 22:00 07/26/19 21:59 06/30/19 13:25 Polyethylene Glycol (Miralax) 17 gm DAILYPRN PRN GT Constipation 06/29/19 19:33 07/29/19 19:32 Sucralfate (Carafate) 1 gm EVERY 8 HOURS GT 06/29/19 22:00 07/21/19 08:59 06/30/19 13:25 Vancomycin HCl (Vanco rx to dose) 1 ea DAILY PRN MISC Per rx protocol 06/30/19 12:15 07/30/19 12:14 Vancomycin HCl 1 gm/Dextrose 275 ml @ 183.708 mls/hr Q24H IVPB 07/01/19 15:00 07/06/19 14:59 Vancomycin/Sodium Chloride 275 ml @ 137.5 mls/ hr ONCE ONCE IVPB 06/30/19 14:30 06/30/19 16:29 06/30/19 14:39 Zinc Oxide (Zinc Oxide) 1 applic QHS TOPIC 06/29/19 21:00 07/21/19 08:59 06/29/19 21:49 Last 24 Hour Vital Signs Date Time Temp Pulse Resp B/P (MAP) Pulse Ox O2 Delivery O2 Flow Rate FiO2 06/30/19 13:00 122/67 06/30/19 13:00 77 15 122/67 (85) 99 06/30/19 12:58 75 16 35 06/30/19 12:45 84 18 130/70 (90) 100 06/30/19 12:30 81 26 137/78 (97) 97 06/30/19 12:15 76 18 127/66 (86) 98 06/30/19 12:12 68 06/30/19 12:08 125/53 06/30/19 12:00 35 06/30/19 12:00 98.9 79 18 125/53 (77) 97 06/30/19 12:00 127/66 06/30/19 12:00 Mechanical Ventilator 06/30/19 11:45 77 23 120/57 (78) 98 06/30/19 11:30 73 20 114/47 (69) 98 06/30/19 11:15 64 15 92/44 (60) 100 06/30/19 11:00 73 15 121/41 (67) 97 06/30/19 11:00 121/41 06/30/19 10:45 78 18 123/106 (112) 97 06/30/19 10:42 78 16 35 06/30/19 10:40 123/106 06/30/19 10:30 72 19 109/93 (98) 98 06/30/19 10:15 62/32 06/30/19 10:15 63 16 62/32 (42) 100 06/30/19 10:00 71 16 111/95 (100) 99 06/30/19 10:00 68/34 06/30/19 09:45 71 25 91/59 (70) 98 06/30/19 09:30 71 17 102/37 (58) 98 06/30/19 09:15 71 19 108/49 (68) 99 06/30/19 09:00 71 15 96/39 (58) 98 06/30/19 09:00 82/36 06/30/19 08:58 72 19 35 06/30/19 08:45 72 18 94/31 (52) 98 06/30/19 08:30 71 17 106/42 (63) 97 06/30/19 08:15 72 18 103/64 (77) 98 06/30/19 08:00 35 06/30/19 08:00 103/64 06/30/19 08:00 Mechanical Ventilator 06/30/19 08:00 99.7 71 15 97/70 (79) 99 06/30/19 07:45 72 18 106/91 (96) 99 06/30/19 07:32 69 06/30/19 07:30 70 19 104/85 (91) 99 06/30/19 07:15 72 21 104/68 (80) 96 06/30/19 07:00 76 18 110/52 (71) 99 06/30/19 07:00 73 17 35 06/30/19 07:00 104/68 06/30/19 06:30 77 16 103/58 (73) 98 06/30/19 06:15 81 17 112/57 (75) 99 06/30/19 06:00 80 19 74/53 (60) 99 06/30/19 06:00 74/53 06/30/19 05:45 77 18 88/55 (66) 98 06/30/19 05:30 80 15 112/74 (87) 99 06/30/19 05:25 71 16 35 06/30/19 05:00 106/45 06/30/19 05:00 79 11 106/45 (65) 98 06/30/19 04:45 73 0 116/47 (70) 100 06/30/19 04:30 80 14 120/55 (76) 98 06/30/19 04:15 80 16 110/47 (68) 100 06/30/19 04:00 98.0 84 16 110/48 (68) 98 06/30/19 04:00 Mechanical Ventilator 06/30/19 04:00 110/48 06/30/19 04:00 35 06/30/19 04:00 77 06/30/19 03:30 64 16 35 06/30/19 03:30 80 16 108/42 (64) 98 06/30/19 03:00 72 16 112/46 (68) 100 06/30/19 03:00 112/46 06/30/19 02:45 71 16 119/46 (70) 100 06/30/19 02:30 71 12 116/44 (68) 100 06/30/19 02:15 74 15 109/46 (67) 100 06/30/19 02:00 73 16 112/53 (72) 100 06/30/19 02:00 112/53 06/30/19 01:45 71 16 87/41 (56) 100 06/30/19 01:30 71 7 101/48 (65) 100 06/30/19 01:13 73 16 35 06/30/19 01:00 71 13 102/49 (66) 100 06/30/19 01:00 102/49 06/30/19 00:30 70 14 98/50 (66) 100 06/30/19 00:00 98.0 70 15 97/41 (59) 100 06/30/19 00:00 35 06/30/19 00:00 100/47 06/30/19 00:00 Mechanical Ventilator 06/30/19 00:00 71 06/29/19 23:45 70 16 105/38 (60) 100 06/29/19 23:30 70 16 121/51 (74) 100 06/29/19 23:30 70 16 121/51 (74) 100 06/29/19 23:15 70 16 114/58 (76) 100 06/29/19 23:00 64 16 140/63 (88) 100 06/29/19 23:00 114/58 06/29/19 22:55 62 16 35 06/29/19 22:45 49 16 127/63 (84) 99 06/29/19 22:35 54/31 06/29/19 22:30 59 16 54/31 (39) 100 06/29/19 22:15 61 16 59/31 (40) 100 06/29/19 22:00 75 14 112/53 (72) 100 06/29/19 21:45 70 16 79/38 (52) 97 06/29/19 21:30 71 16 111/44 (66) 99 06/29/19 21:15 75 16 108/51 (70) 99 06/29/19 21:00 69 16 97/36 (56) 100 06/29/19 20:46 67 16 35 06/29/19 20:45 65 16 94/55 (68) 98 06/29/19 20:30 70 16 96/48 (64) 100 06/29/19 20:15 76 19 120/36 (64) 100 06/29/19 20:00 35 06/29/19 20:00 Mechanical Ventilator 06/29/19 20:00 97.5 72 17 114/57 (76) 100 06/29/19 19:50 66 06/29/19 19:30 65 16 35 06/29/19 17:00 85 18 30 06/29/19 16:00 97.4 76 20 153/70 (97) 97 06/29/19 16:00 35 06/29/19 16:00 Mechanical Ventilator 06/29/19 15:31 80 06/29/19 15:29 80 16 30 06/29/19 13:28 66 17 30 06/29/19 13:27 66 16 99 Mechanical Ventilator 30 06/29/19 12:00 35 06/29/19 12:00 52 06/29/19 12:00 97.6 54 18 95/49 (64) 100 06/29/19 12:00 Mechanical Ventilator 06/29/19 11:30 58 16 30 06/29/19 08:38 62 16 30 06/29/19 08:00 35 06/29/19 08:00 97.6 62 20 112/48 (69) 100 06/29/19 08:00 Mechanical Ventilator 06/29/19 07:53 60 06/29/19 07:23 69 16 30 06/29/19 05:22 57 16 30 06/29/19 05:12 63 96/65 (75) 06/29/19 04:55 97/69 (78) 06/29/19 04:00 35 06/29/19 04:00 97.9 73 18 108/71 (83) 98 06/29/19 04:00 Mechanical Ventilator 06/29/19 03:51 78 06/29/19 03:05 65 16 30 06/29/19 01:10 62 16 30 06/29/19 00:00 97.5 68 18 103/68 (80) 99 06/29/19 00:00 Mechanical Ventilator 06/29/19 00:00 35 06/28/19 23:40 64 06/28/19 22:49 81 20 30 06/28/19 21:06 75 16 30 06/28/19 20:59 71 98/62 (74) 06/28/19 20:00 96.8 69 18 110/50 (70) 98 06/28/19 20:00 Mechanical Ventilator 06/28/19 20:00 35 06/28/19 19:33 74 06/28/19 19:12 73 16 30 06/28/19 17:14 69 16 35 06/28/19 16:00 Mechanical Ventilator 06/28/19 16:00 35 06/28/19 16:00 99.8 70 18 93/53 (66) 97 06/28/19 16:00 70 06/28/19 15:26 66 16 35 Intake and Output 06/29/19 06/30/19 19:00 07:00 Intake Total 1115 ml 1116.25 ml Output Total 1075 ml 770 ml Balance 40 ml 346.25 ml Intake Free Water 150 ml IV Total 450 ml 661.25 ml Tube Feeding 515 ml 455 ml Output Urine Total 1075 ml 770 ml # Bowel Movements 1 1 Labs Test 06/28/19 04:10 06/28/19 07:45 06/29/19 03:30 06/29/19 11:27 White Blood Count 6.9 K/UL (4.8-10.8) 7.9 K/UL (4.8-10.8) 10.7 K/UL (4.8-10.8) Red Blood Count 2.49 M/UL (4.70-6.10) 2.89 M/UL (4.70-6.10) 3.41 M/UL (4.70-6.10) Hemoglobin 7.0 G/DL (14.2-18.0) 8.0 G/DL (14.2-18.0) 9.5 G/DL (14.2-18.0) Hematocrit 21.6 % (42.0-52.0) 24.5 % (42.0-52.0) 29.9 % (42.0-52.0) Mean Corpuscular Volume 87 FL (80-99) 85 FL (80-99) 88 FL (80-99) Mean Corpuscular Hemoglobin 28.3 PG (27.0-31.0) 27.9 PG (27.0-31.0) 27.8 PG (27.0-31.0) Mean Corpuscular Hemoglobin Concent 32.5 G/DL (32.0-36.0) 32.9 G/DL (32.0-36.0) 31.7 G/DL (32.0-36.0) Red Cell Distribution Width 15.8 % (11.6-14.8) 16.2 % (11.6-14.8) 16.4 % (11.6-14.8) Platelet Count 245 K/UL (150-450) 283 K/UL (150-450) 389 K/UL (150-450) Mean Platelet Volume 8.1 FL (6.5-10.1) 7.6 FL (6.5-10.1) 7.3 FL (6.5-10.1) Neutrophils (%) (Auto) % (45.0-75.0) 65.9 % (45.0-75.0) 61.0 % (45.0-75.0) Lymphocytes (%) (Auto) % (20.0-45.0) 18.8 % (20.0-45.0) 20.2 % (20.0-45.0) Monocytes (%) (Auto) % (1.0-10.0) 11.8 % (1.0-10.0) 13.8 % (1.0-10.0) Eosinophils (%) (Auto) % (0.0-3.0) 2.5 % (0.0-3.0) 4.1 % (0.0-3.0) Basophils (%) (Auto) % (0.0-2.0) 1.1 % (0.0-2.0) 0.9 % (0.0-2.0) Differential Total Cells Counted 100 Neutrophils % (Manual) 71 % (45-75) Lymphocytes % (Manual) 14 % (20-45) Monocytes % (Manual) 14 % (1-10) Eosinophils % (Manual) 1 % (0-3) Basophils % (Manual) 0 % (0-2) Band Neutrophils 0 % (0-8) Platelet Estimate Adequate Platelet Morphology Normal Hypochromasia Anisocytosis 1+ Sodium Level 133 MMOL/L (136-145) 140 MMOL/L (136-145) Potassium Level 3.7 MMOL/L (3.5-5.1) 4.5 MMOL/L (3.5-5.1) Chloride Level 100 MMOL/L (98-107) 107 MMOL/L (98-107) Carbon Dioxide Level 24 MMOL/L (21-32) 24 MMOL/L (21-32) Anion Gap 9 mmol/L (5-15) 9 mmol/L (5-15) Blood Urea Nitrogen 13 mg/dL (7-18) 17 mg/dL (7-18) Creatinine 1.3 MG/DL (0.55-1.30) 1.5 MG/DL (0.55-1.30) Estimat Glomerular Filtration Rate 54.6 mL/min (>60) 46.3 mL/min (>60) Glucose Level 289 MG/DL (74-106) 110 MG/DL (74-106) Calcium Level 7.7 MG/DL (8.5-10.1) 8.6 MG/DL (8.5-10.1) Thyroid Stimulating Hormone (TSH) 17.549 uiU/mL (0.358-3.740) Magnesium Level 1.7 MG/DL (1.8-2.4) Ammonia 15 umol/L (11-32) Phenytoin (Dilantin) Level 10.1 ug/mL (10-20) Test 06/30/19 04:15 White Blood Count 12.7 K/UL (4.8-10.8) Red Blood Count 2.85 M/UL (4.70-6.10) Hemoglobin 8.2 G/DL (14.2-18.0) Hematocrit 24.6 % (42.0-52.0) Mean Corpuscular Volume 86 FL (80-99) Mean Corpuscular Hemoglobin 28.7 PG (27.0-31.0) Mean Corpuscular Hemoglobin Concent 33.2 G/DL (32.0-36.0) Red Cell Distribution Width 16.3 % (11.6-14.8) Platelet Count 337 K/UL (150-450) Mean Platelet Volume 7.5 FL (6.5-10.1) Neutrophils (%) (Auto) % (45.0-75.0) Lymphocytes (%) (Auto) % (20.0-45.0) Monocytes (%) (Auto) % (1.0-10.0) Eosinophils (%) (Auto) % (0.0-3.0) Basophils (%) (Auto) % (0.0-2.0) Differential Total Cells Counted 100 Neutrophils % (Manual) 90 % (45-75) Lymphocytes % (Manual) 3 % (20-45) Monocytes % (Manual) 7 % (1-10) Eosinophils % (Manual) 0 % (0-3) Basophils % (Manual) 0 % (0-2) Band Neutrophils 0 % (0-8) Platelet Estimate Adequate Platelet Morphology Normal Anisocytosis 1+ Sodium Level 136 MMOL/L (136-145) Potassium Level 3.8 MMOL/L (3.5-5.1) Chloride Level 106 MMOL/L (98-107) Carbon Dioxide Level 22 MMOL/L (21-32) Anion Gap 8 mmol/L (5-15) Blood Urea Nitrogen 17 mg/dL (7-18) Creatinine 1.3 MG/DL (0.55-1.30) Estimat Glomerular Filtration Rate 54.6 mL/min (>60) Glucose Level 228 MG/DL (74-106) Calcium Level 8.4 MG/DL (8.5-10.1) Height (Feet): 5 Height (Inches): 8.00 Weight (Pounds): 196 Objective PHYSICAL EXAMINATION: VITAL SIGNS: Have been reviewed HEENT: Trach/vent site ++ CHEST: Bibasilar rales CV: Regular rate and rhythm. GI: Positive bowel sounds. G-tube++ EXTREMITIES: + edema. NEUROLOGICAL: Reflexes equal on both sides. Nikos Nath MD Jun 30, 2019 14:49
[2019-06-30] MEDS: D5NS 1,000 ML IV SCH (14:51)
--- NOTE | 2019-06-30 15:30 | NUR ---
NURSE NOTES: Pt suctioned and repositioned. No distress and No seizure activity noted. Safety precautions maintained. Will continue to monitor.
[2019-06-30 15:41] LABS: APPEARANCE,URINE CLEAR; BILIRUBIN, URINE NEGATIVE (NEGATIVE); COLOR,URINE PALE YELLOW; GLUCOSE, URINE (UA) NEGATIVE (NEGATIVE); KETONES,URINE NEGATIVE (NEGATIVE); LEUKOCYTE ESTERASE ,URINE 3+ (NEGATIVE); NITRITE,URINE NEGATIVE (NEGATIVE); PH,URINE 7 (4.5-8.0); PROTEIN,URINE 1+ (NEGATIVE); UROBILINOGEN,URINE NORMAL MG/DL (0.0-1.0)
--- NOTE | 2019-06-30 16:13 | Diagnostic Imaging Report ---
Indication: Cough, dyspnea Technique: One view of the chest Comparison: 06/23/2019 Findings: Bilateral interstitial and airspace edema and bilateral pleural effusions persist, probably unchanged. The heart is upper limits normal in size. Tracheostomy remains. Left arm PICC again demonstrated Impression: Bilateral pulmonary edema and bilateral pleural effusions, unchanged since 06/23/2019
--- NOTE | 2019-06-30 17:45 | NUR ---
NURSE NOTES: Dr. Gaffney at bedside assessing the patient, updated him on pt's current condition. Also notified him that STAT EEG has not yet been done. No seizure activity noted.
--- NOTE | 2019-06-30 18:54 | NUR ---
NURSE NOTES: Tylenol 650MG given via Gtube for temp of 100.4. Will reassess in 30 mins.
--- NOTE | 2019-06-30 19:15 | NUR ---
HAND-OFF: Report given to ODILIA Harvey.
--- NOTE | 2019-06-30 19:16 | NUR ---
NURSE NOTES: Endorsement received from ODILIA Milligan. Patient withdraws and opens eyes to pain, non verbal. Trache to vent. Portex 8.0. Vent settings AC 16, 600, 35%. Left upper arm PICC. Receiving D5 NS at 50 ml/hr. Levophed single concentration at 6 mcg/min. G tube patent and intact. On Osmolite 1.5 65 ml/hr x 18hours. No residual noted. Victor catheter draining to urimeter per gravity. On P200 mattress. On seizure precautions. Call light within reach. Head of bed elevated. Bed locked and in low position. Bed alarm on.
[2019-06-30] MEDS: Dyna-Hex 2% Top Sol 2oz TOPIC SCH (20:09)
--- NOTE | 2019-06-30 20:09 | Cardiology Progress Note ---
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 anemia chronic respiratory failure s/p sepsis sinur chau hypotension no symptoms with sinu chau avoid neg chronotropic agents tele reviewed tsh 5.87 earlier this month i was notifeid by stafff early this am regarding hypotension ivf bolus given but no response need to staty on dilantin iv but not able to due to further dropt in bp so i started him on levophed on reevaluation per rn bp had improved to more than 10 on levophed dupport pt is nto communicative is on iv abx vent support lab noted overall prognosis poor will taper pressor as possible Subjective ROS Limited/Unobtainable: Yes Objective Last 24 Hour Vital Signs Date Time Temp Pulse Resp B/P (MAP) Pulse Ox O2 Delivery O2 Flow Rate FiO2 06/30/19 19:50 98.4 06/30/19 19:00 84 17 121/64 (83) 98 06/30/19 19:00 121/64 06/30/19 18:45 100.4 87 20 121/64 (83) 99 06/30/19 18:30 86 17 119/50 (73) 97 06/30/19 18:15 86 18 128/58 (81) 98 06/30/19 18:00 84 14 127/56 (79) 98 06/30/19 18:00 128/58 06/30/19 17:27 79 21 35 06/30/19 17:00 76 16 126/64 (84) 100 06/30/19 17:00 126/64 06/30/19 16:45 73 17 125/57 (79) 100 06/30/19 16:30 71 16 127/60 (82) 100 06/30/19 16:15 64 16 127/60 (82) 100 06/30/19 16:00 99.6 65 16 106/51 (69) 100 06/30/19 16:00 99/47 06/30/19 16:00 35 06/30/19 16:00 Mechanical Ventilator 06/30/19 15:45 68 16 102/49 (66) 99 06/30/19 15:33 74 06/30/19 15:30 73 17 131/62 (85) 99 06/30/19 15:15 75 17 129/74 (92) 100 06/30/19 15:00 129/74 06/30/19 15:00 78 15 137/60 (85) 99 06/30/19 14:54 79 19 35 06/30/19 14:45 79 17 141/70 (93) 100 06/30/19 14:30 78 18 141/61 (87) 99 06/30/19 14:15 77 17 129/61 (83) 99 06/30/19 14:00 77 17 131/87 (102) 100 06/30/19 14:00 129/61 06/30/19 13:45 74 17 126/65 (85) 100 06/30/19 13:30 77 16 106/56 (73) 99 06/30/19 13:15 77 16 117/57 (77) 99 06/30/19 13:00 122/67 06/30/19 13:00 77 15 122/67 (85) 99 06/30/19 12:58 75 16 35 06/30/19 12:45 84 18 130/70 (90) 100 06/30/19 12:30 81 26 137/78 (97) 97 06/30/19 12:15 76 18 127/66 (86) 98 06/30/19 12:12 68 06/30/19 12:08 125/53 06/30/19 12:00 35 06/30/19 12:00 98.9 79 18 125/53 (77) 97 06/30/19 12:00 127/66 06/30/19 12:00 Mechanical Ventilator 06/30/19 11:45 77 23 120/57 (78) 98 06/30/19 11:30 73 20 114/47 (69) 98 06/30/19 11:15 64 15 92/44 (60) 100 06/30/19 11:00 73 15 121/41 (67) 97 06/30/19 11:00 121/41 06/30/19 10:45 78 18 123/106 (112) 97 06/30/19 10:42 78 16 35 06/30/19 10:40 123/106 06/30/19 10:30 72 19 109/93 (98) 98 06/30/19 10:15 62/32 06/30/19 10:15 63 16 62/32 (42) 100 06/30/19 10:00 71 16 111/95 (100) 99 06/30/19 10:00 68/34 06/30/19 09:45 71 25 91/59 (70) 98 06/30/19 09:30 71 17 102/37 (58) 98 06/30/19 09:15 71 19 108/49 (68) 99 06/30/19 09:00 71 15 96/39 (58) 98 06/30/19 09:00 82/36 06/30/19 08:58 72 19 35 06/30/19 08:45 72 18 94/31 (52) 98 06/30/19 08:30 71 17 106/42 (63) 97 06/30/19 08:15 72 18 103/64 (77) 98 06/30/19 08:00 35 06/30/19 08:00 103/64 06/30/19 08:00 Mechanical Ventilator 06/30/19 08:00 99.7 71 15 97/70 (79) 99 06/30/19 07:45 72 18 106/91 (96) 99 06/30/19 07:32 69 06/30/19 07:30 70 19 104/85 (91) 99 06/30/19 07:15 72 21 104/68 (80) 96 06/30/19 07:00 76 18 110/52 (71) 99 06/30/19 07:00 73 17 35 06/30/19 07:00 104/68 06/30/19 06:30 77 16 103/58 (73) 98 06/30/19 06:15 81 17 112/57 (75) 99 06/30/19 06:00 80 19 74/53 (60) 99 06/30/19 06:00 74/53 06/30/19 05:45 77 18 88/55 (66) 98 06/30/19 05:30 80 15 112/74 (87) 99 06/30/19 05:25 71 16 35 06/30/19 05:00 106/45 06/30/19 05:00 79 11 106/45 (65) 98 06/30/19 04:45 73 0 116/47 (70) 100 06/30/19 04:30 80 14 120/55 (76) 98 06/30/19 04:15 80 16 110/47 (68) 100 06/30/19 04:00 98.0 84 16 110/48 (68) 98 06/30/19 04:00 Mechanical Ventilator 06/30/19 04:00 110/48 06/30/19 04:00 35 06/30/19 04:00 77 06/30/19 03:30 64 16 35 06/30/19 03:30 80 16 108/42 (64) 98 06/30/19 03:00 72 16 112/46 (68) 100 06/30/19 03:00 112/46 06/30/19 02:45 71 16 119/46 (70) 100 06/30/19 02:30 71 12 116/44 (68) 100 06/30/19 02:15 74 15 109/46 (67) 100 06/30/19 02:00 73 16 112/53 (72) 100 06/30/19 02:00 112/53 06/30/19 01:45 71 16 87/41 (56) 100 06/30/19 01:30 71 7 101/48 (65) 100 06/30/19 01:13 73 16 35 06/30/19 01:00 71 13 102/49 (66) 100 06/30/19 01:00 102/49 06/30/19 00:30 70 14 98/50 (66) 100 06/30/19 00:00 98.0 70 15 97/41 (59) 100 06/30/19 00:00 35 06/30/19 00:00 100/47 06/30/19 00:00 Mechanical Ventilator 06/30/19 00:00 71 06/29/19 23:45 70 16 105/38 (60) 100 06/29/19 23:30 70 16 121/51 (74) 100 06/29/19 23:30 70 16 121/51 (74) 100 06/29/19 23:15 70 16 114/58 (76) 100 06/29/19 23:00 64 16 140/63 (88) 100 06/29/19 23:00 114/58 06/29/19 22:55 62 16 35 06/29/19 22:45 49 16 127/63 (84) 99 06/29/19 22:35 54/31 06/29/19 22:30 59 16 54/31 (39) 100 06/29/19 22:15 61 16 59/31 (40) 100 06/29/19 22:00 75 14 112/53 (72) 100 06/29/19 21:45 70 16 79/38 (52) 97 06/29/19 21:30 71 16 111/44 (66) 99 06/29/19 21:15 75 16 108/51 (70) 99 06/29/19 21:00 69 16 97/36 (56) 100 06/29/19 20:46 67 16 35 06/29/19 20:45 65 16 94/55 (68) 98 06/29/19 20:30 70 16 96/48 (64) 100 06/29/19 20:15 76 19 120/36 (64) 100 General Appearance: no apparent distress, on vent, patient on isolation Cardiovascular: normal rate Respiratory/Chest: rhonchi - bilaterally Abdomen: normal bowel sounds, non tender, soft Extremities: other - contracted Intake and Output 06/29/19 06/30/19 19:00 07:00 Intake Total 1115 ml 1116.25 ml Output Total 1075 ml 770 ml Balance 40 ml 346.25 ml Intake Free Water 150 ml IV Total 450 ml 661.25 ml Tube Feeding 515 ml 455 ml Output Urine Total 1075 ml 770 ml # Bowel Movements 1 1 Laboratory Tests Test 06/30/19 04:15 06/30/19 13:40 White Blood Count 12.7 K/UL (4.8-10.8) H Red Blood Count 2.85 M/UL (4.70-6.10) L Hemoglobin 8.2 G/DL (14.2-18.0) L Hematocrit 24.6 % (42.0-52.0) L Mean Corpuscular Volume 86 FL (80-99) Mean Corpuscular Hemoglobin 28.7 PG (27.0-31.0) Mean Corpuscular Hemoglobin Concent 33.2 G/DL (32.0-36.0) Red Cell Distribution Width 16.3 % (11.6-14.8) H Platelet Count 337 K/UL (150-450) Mean Platelet Volume 7.5 FL (6.5-10.1) Neutrophils (%) (Auto) % (45.0-75.0) Lymphocytes (%) (Auto) % (20.0-45.0) Monocytes (%) (Auto) % (1.0-10.0) Eosinophils (%) (Auto) % (0.0-3.0) Basophils (%) (Auto) % (0.0-2.0) Differential Total Cells Counted 100 Neutrophils % (Manual) 90 % (45-75) H Lymphocytes % (Manual) 3 % (20-45) L Monocytes % (Manual) 7 % (1-10) Eosinophils % (Manual) 0 % (0-3) Basophils % (Manual) 0 % (0-2) Band Neutrophils 0 % (0-8) Platelet Estimate Adequate Platelet Morphology Normal Anisocytosis 1+ Sodium Level 136 MMOL/L (136-145) Potassium Level 3.8 MMOL/L (3.5-5.1) Chloride Level 106 MMOL/L (98-107) Carbon Dioxide Level 22 MMOL/L (21-32) Anion Gap 8 mmol/L (5-15) Blood Urea Nitrogen 17 mg/dL (7-18) Creatinine 1.3 MG/DL (0.55-1.30) Estimat Glomerular Filtration Rate 54.6 mL/min (>60) Glucose Level 228 MG/DL (74-106) #H Calcium Level 8.4 MG/DL (8.5-10.1) L Urine Color Pale yellow Urine Appearance Clear Urine pH 7 (4.5-8.0) Urine Specific [place] 1.005 (1.005-1.035) Urine Protein 1+ (NEGATIVE) H Urine Glucose (UA) Negative (NEGATIVE) Urine Ketones Negative (NEGATIVE) Urine Blood 3+ (NEGATIVE) H Urine Nitrite Negative (NEGATIVE) Urine Bilirubin Negative (NEGATIVE) Urine Urobilinogen Normal MG/DL (0.0-1.0) Urine Leukocyte Esterase 3+ (NEGATIVE) H Urine RBC 10-15 /HPF (0 - 0) H Urine WBC Tntc /HPF (0 - 0) H Urine Squamous Epithelial Cells Occasional /LPF Urine Bacteria Many /HPF (NONE) H Javier Ponce MD Jun 30, 2019 20:09
[2019-06-30] MEDS: Zinc Oxide Oint 2oz TOPIC SCH (20:11)
--- NOTE | 2019-06-30 20:15 | NUR ---
NURSE NOTES: Patient seen and examined by Dr. Ponce, no new order given at this time
--- NOTE | 2019-06-30 20:30 | NUR ---
NURSE NOTES: Operations Processor at bedside for EEG.
--- NOTE | 2019-06-30 21:00 | NUR ---
NURSE NOTES: Feeding held for Dilantin at 2200H
--- NOTE | 2019-06-30 21:30 | NUR ---
NURSE NOTES: Called Dr. Gaffney and relayed the EEG report, as per him no new order at this time.
--- NOTE | 2019-06-30 22:00 | NUR ---
NURSE NOTES: Dr. Shelley came and seen the patient, EEG still ongoing. No new orders received at this time
[2019-07-01] VITALS (69 sets, daily range): BP systolic 70–130; BP diastolic 32–78
--- NOTE | 2019-07-01 | NUR ---
NURSE NOTES: No seizure activity. Sinus rhythm on the monitor.
--- NOTE | 2019-07-01 01:15 | Electroencephalogram ---
DATE OF PROCEDURE: 06/29/2019 REQUESTING PHYSICIANS: Jd Gaffney M.D. & Gato Viveros D.O. READING PHYSICIAN: Oziel Shelley M.D. PROCEDURE PERFORMED: Electroencephalogram. HISTORY: This EEG was performed on a 68-year-old gentleman with a history of multiple medical problems including prior cerebral vascular disease, schizoaffective disorder, Alzheimer's disease, and a seizure disorder for which he is on Dilantin and Ativan. The purpose of this EEG was to evaluate the patient for ongoing ictal or interictal phenomena. TECHNICAL NOTE: This EEG was performed on a [employer] with electrodes placed on the scalp according to the International 10-20 system. [id number] and [id number] montages were used. The EEG was technically satisfactory and was performed while the patient was in a poorly responsive state. OBSERVATIONS: In the poorly responsive state the background activity consisted predominantly of 5-6 Hz theta activity. Sharp discharges emanating from the F3 electrode building up to a crescendo and then generalizing for up to 60 seconds at a time were seen. These were associated with right face and right arm twitching. Following these events, there was significant attenuation of the background indicating a postictal state. The patient had 5 such events throughout the entire EEG. IMPRESSION: This is an abnormal EEG characterized by: 1. Slowing of the background in the 5-6 Hz theta range. 2. The presence of sharp discharges emanating from the left frontal area and then spreading into the left hemisphere and then both hemispheres. COMMENT: This study is consistent with an ictal EEG with multiple seizures, which start focally in the left frontal area and then generalize. Clinical correlation is recommended. Oziel Shelley M.D., M.S.P.H. DR: DAVID JOB#: [id number] [email or web address]
--- NOTE | 2019-07-01 02:00 | NUR ---
NURSE NOTES: Maintaining SBP of 90mmHg at levophed 4mcg/min. Will continue to monitor/titrate accordingly
--- NOTE | 2019-07-01 02:40 | NUR ---
HAND-OFF: Report given to Piter for continuity of care.
--- NOTE | 2019-07-01 02:51 | NUR ---
NURSE NOTES: PATIENT ASLEEP STATUS, RESPONSE TO TACTILE STIMULI, ON TRACH TO VENT, AC 16/TV 600/FIO2 30%/ NO PEEP, O2 SATURATION 99% NOTED, ABDOMEN SOFT, NON TENDER, NO BOWEL MOVEMENT STATUS, G TUBE INTACT AND PATENT, ONGOING OSMOLITE 1.5 AT 65ML/HR, RESIDUE 30ML NOTED, KEPT HOB OVER 30 DEGREES, F/C INTACT AND PATENT, YELLOW URINE OUTED, PICC LINE TO LEFT UPPER ARM, INTACT AND PATENT, ONGOING LEVOPHED 4MCG/MIN AND D5W NS AT 50ML/HR, ON P200 BED, KEPT SZ PRECAUTION, ON BED ALARM AND LOCKED, MADE LOWER BED POSITION, WILL CONTINUE TO MONITOR.
--- NOTE | 2019-07-01 04:28 | NUR ---
HAND-OFF: Report given to ODILIA MEDRANO.
--- NOTE | 2019-07-01 04:29 | NUR ---
NURSE NOTES: Endorsement received from ODILIA Dumas for continuity of care.
--- NOTE | 2019-07-01 05:00 | NUR ---
NURSE NOTES: Bed bath, oral care, change of linens done. Sputum sample collected and sent to the lab for sputum C/S as ordered.
--- NOTE | 2019-07-01 05:30 | Progress Note ---
DATE: 06/30/2019 NOTE: VERY POOR AUDIO SUBJECTIVE: The patient is seen today no change from yesterday. He was given he has left hemispheric recurrent ictal events with right facial nerve twitching lasting over a minute. The patient was also given dilantin. The patient was also given 2 mg of IV ativan. The patient's blood pressure did decrease He was given norepinephrine. His blood pressure has been maintained. blood pressure of 92/44. His blood pressure given 121/61, it was 111/70. PHYSICAL EXAM: Today on physical examination, blood pressure 103/49, respiratory rate is 16, pulse rate of 68, FiO2 35% and the SpO2 is 98%. MENTAL STATUS: The patient is comatose CRANIAL NERVE EXAMINATION: CRANIAL NERVE II: There is no response to threat. CRANIAL NERVES III, IV, AND : on Doll's maneuver. The pupils are about 2 mm on the right, very sluggishly reactive. CRANIAL NERVE V: No corneal response. CRANIAL NERVE VII: no change CRANIAL NERVES IX THROUGH XII: not testable. MUSCLE EXAMINATION: Revealed decreased tone in the right upper extremity and increased tone ine right lower extremity. Increased tone in the left . Movements absent right arm ans leg. Reflexes are 0 in the upper and lower extremity. Dorsalis could not be obtained. SENSORY EXAM: Their is some intact sensation distally in the left side. LABORATORY DATA: . IMPRESSION: The patient is comatose The patient is on phenobarbital Jd Gaffney MD DR: GLADIS JOB#: [id number] CC: KENDRICK
[2019-07-01 06:08] LABS: HEMATOCRIT 24.3 % (42.0-52.0); HEMOGLOBIN 7.9 G/DL (14.2-18.0); MEAN CORPUSCULAR VOLUME 86 FL (80-99); PLATELET COUNT 343 K/UL (150-450); RED BLOOD COUNT 2.83 M/UL (4.70-6.10); WHITE BLOOD COUNT 6.3 K/UL (4.8-10.8)
[2019-07-01] MEDS: Sucralfate 1gm tab GT SCH ×3 (06:08→21:54)
[2019-07-01] MEDS: Phenytoin Susp 100mg/4ml GT SCH (06:09)
[2019-07-01 06:15] LABS: ALANINE AMINOTRANSFERASE 30 U/L (12-78); ALBUMIN/GLOBULIN RATIO 0.5 (1.0-2.7); ALKALINE PHOSPHATASE 180 U/L (46-116); ANION GAP 7 mmol/L (5-15); ASPARTATE AMINO TRANSFERASE 18 U/L (15-37); BILIRUBIN,TOTAL 0.2 MG/DL (0.2-1.0); BLOOD UREA NITROGEN 19 mg/dL (7-18); CALCIUM 8.3 MG/DL (8.5-10.1); CARBON DIOXIDE 25 MMOL/L (21-32); CHLORIDE 110 MMOL/L (98-107); CREATININE 1.4 MG/DL (0.55-1.30); PHOSPHORUS 2.6 MG/DL (2.5-4.9); POTASSIUM 4.2 MMOL/L (3.5-5.1); SODIUM 142 MMOL/L (136-145)
--- NOTE | 2019-07-01 06:15 | NUR ---
NURSE NOTES: Patient seen and examined by Dr. Nath. Lab results still pending. No new orders at this time
--- NOTE | 2019-07-01 07:00 | NUR ---
RESPIRATORY NOTES: Received Patient on Mechanical Ventilator settings RR 16, VT 600, FIO2 35%, PEEP +0. 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 Patient is flat effect, showing no signs of distress. Bilateral rhonchi is heard throughout both lungs, in all lung wiseman. Suctioned a moderate amount of thick owens/ white frothy secretions through trache and thin white frothy secretions through mouth. Alarms are on and audible. Vent plugged into red outlet. Will continue to closely monitor throughout the day.
--- NOTE | 2019-07-01 07:37 | NUR ---
HAND-OFF: Report given to Karina owens RN.
--- NOTE | 2019-07-01 07:40 | NUR ---
NURSE NOTES: Received the patient from ODILIA Harvey. Patient opens eyes spontaneously, unable to follow commands, withdraws to pain. SB-SR HR high 58-61 noted on compliance monitor. Trach to vent, portex 8.0, AC 16, TV 600, FIO2 35%, PEEP 0. No acute distress noted. G-tube intact, resumed Osmolite 1.5 at 65ml/hr. HOB kept elevated. Left upper arm PICC intact, running D5NS at 50ml/hr, Levophed at 4mcg/min. Victor cath intact, draining by gravity. Patient on P200 mattress. wound dressings intact. On seizure precautions, side rails padded. Bed in lowest position, locked, side rails up3. Call light within reach. Will continue to monitor.
--- NOTE | 2019-07-01 07:53 | NUR ---
RADIOLOGY DEPT., CHEST AND ABDOMEN X-RAYS COMPLETED.-P.DYE
[2019-07-01] MEDS: Pantoprazole Inj IVP SCH (08:42)
[2019-07-01] MEDS: Cefepime HCl 1 GM in D5W 55 ML IVPB SCH ×2 (08:42→20:53)
--- NOTE | 2019-07-01 09:10 | NUR ---
NURSE NOTES: Patient was turned and repositioned. Patient kept clean and dry. Oral care and petty care provided. Levophed running at 2mcg/min.
--- NOTE | 2019-07-01 09:22 | Diagnostic Imaging Report ---
Indication: Abdominal tenderness Technique: Supine view of the abdomen Comparison: 06/21/2019 Findings: Bowel gas pattern is unremarkable. No definite gaseous distention of large or small bowel. There is a Victor catheter in place. Impression: No definite acute process
--- NOTE | 2019-07-01 09:23 | Diagnostic Imaging Report ---
Indication: Dyspnea Technique: One view of the chest Comparison: 06/30/2019 Findings: There is a tracheostomy again demonstrated. Bilateral pleural effusions and bilateral interstitial and airspace edema are unchanged. Impression: Unchanged, over one day, findings as above.
--- NOTE | 2019-07-01 09:38 | NUR ---
*-* INSURANCE *-* [facility]INICALS AND REVIEWS HAVE BEEN FAXED TO: TYSHAWN DUDLEY:[employer]
[2019-07-01] MEDS: D5NS 1,000 ML IV SCH (09:46)
--- NOTE | 2019-07-01 10:00 | NUR ---
NURSE NOTES: Patient noted with BP 70/32, restarted levophed at 2mcg/min. will continue to monitor BP.
--- NOTE | 2019-07-01 10:20 | Pulmonolgy Critical Care Note ---
Critical Care - Asmt/Plan Problems: (1) Septic shock (2) Pyelonephritis (3) Chronic respiratory failure (4) Alzheimer's dementia (5) Severe erosive esophagitis (6) Feeding by G-tube (7) Diabetes (8) CVA (cerebral vascular accident) Respiratory: monitor respiratory rate, adjust FIO2, CXR Cardiac: continue pressors Renal: F/U I&O, keep IV fluid - d5 NS at 50 Infectious Disease: check cultures Gastrointestinal: continue feedings/current rate Endocrine: monitor blood sugar, check HgA1C, continue sliding scale insulin Hematologic: monitor H/H, transfuse if hgb<8.5 Neurologic: PRN Ativan, PRN Morphine, keep patient comfortable Prophylaxis: Heparin Disposition: keep in ICU Time Spent (Minutes): 40 Notes Reviewed: deburr technician, cardio, 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 with: nurses, consultants, embedded case managerautomotive 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 sales manager - Objective Last 24 Hour Vital Signs Date Time Temp Pulse Resp B/P (MAP) Pulse Ox O2 Delivery O2 Flow Rate FiO2 07/01/19 10:10 61 16 77/37 (50) 99 07/01/19 10:10 77/37 07/01/19 10:00 70/32 07/01/19 10:00 63 16 70/32 (45) 99 07/01/19 09:45 71 17 90/43 (59) 99 07/01/19 09:30 79 16 106/52 (70) 98 07/01/19 09:15 75 17 115/50 (71) 98 07/01/19 09:15 115/50 07/01/19 09:00 70 16 35 07/01/19 09:00 108/52 07/01/19 09:00 75 16 108/52 (70) 100 07/01/19 08:45 73 17 122/65 (84) 100 07/01/19 08:45 122/65 07/01/19 08:30 67 16 129/65 (86) 100 07/01/19 08:30 129/65 07/01/19 08:00 30 07/01/19 08:00 99.1 66 17 129/65 (86) 100 07/01/19 08:00 129/65 07/01/19 08:00 62 07/01/19 08:00 Mechanical Ventilator 07/01/19 07:30 60 16 100/52 (68) 100 07/01/19 07:20 59 16 35 07/01/19 07:00 122/57 07/01/19 07:00 67 16 122/57 (78) 100 07/01/19 06:00 77 16 119/67 (84) 100 07/01/19 06:00 119/67 07/01/19 05:30 76 17 35 07/01/19 05:30 80 16 122/64 (83) 99 07/01/19 05:00 121/61 07/01/19 05:00 82 22 121/61 (81) 07/01/19 04:30 85 16 107/49 (68) 99 07/01/19 04:00 99.7 81 17 108/52 (70) 100 07/01/19 04:00 30 07/01/19 04:00 Mechanical Ventilator 07/01/19 03:30 72 18 102/50 (67) 99 07/01/19 03:11 73 07/01/19 03:10 70 16 35 07/01/19 03:00 76 17 110/51 (70) 99 07/01/19 02:30 71 18 103/48 (66) 99 07/01/19 02:00 72 16 106/47 (66) 99 07/01/19 02:00 106/47 07/01/19 01:30 73 15 98/45 (62) 99 07/01/19 01:00 73 15 97/46 (63) 99 07/01/19 01:00 84 24 35 07/01/19 01:00 99/54 07/01/19 00:52 99/54 07/01/19 00:30 69 16 102/46 (64) 07/01/19 00:00 Mechanical Ventilator 07/01/19 00:00 98.0 70 17 108/51 (70) 07/01/19 00:00 108/51 07/01/19 00:00 30 07/01/19 00:00 68 06/30/19 23:30 68 16 96/47 (63) 06/30/19 23:12 81 24 35 06/30/19 23:00 94/43 06/30/19 23:00 67 16 94/43 (60) 06/30/19 22:30 75 17 94/47 (63) 06/30/19 22:15 78 16 103/49 (67) 06/30/19 22:00 105/44 06/30/19 22:00 74 18 105/44 (64) 06/30/19 21:45 77 16 105/57 (73) 06/30/19 21:30 77 20 108/39 (62) 06/30/19 21:15 77 18 95/37 (56) 06/30/19 21:00 81 18 105/50 (68) 06/30/19 21:00 105/50 06/30/19 21:00 84 21 35 06/30/19 20:45 79 18 92/54 (67) 06/30/19 20:30 81 16 94/36 (55) 06/30/19 20:15 81 17 94/66 (75) 98 06/30/19 20:00 Mechanical Ventilator 06/30/19 20:00 95/52 06/30/19 20:00 30 06/30/19 20:00 98.4 80 18 95/52 (66) 99 06/30/19 20:00 82 06/30/19 19:50 98.4 06/30/19 19:45 81 21 90/60 (70) 99 06/30/19 19:30 83 18 114/61 (78) 99 06/30/19 19:00 84 17 121/64 (83) 98 06/30/19 19:00 121/64 06/30/19 19:00 81 22 35 06/30/19 18:45 100.4 87 20 121/64 (83) 99 06/30/19 18:30 86 17 119/50 (73) 97 06/30/19 18:15 86 18 128/58 (81) 98 06/30/19 18:00 84 14 127/56 (79) 98 06/30/19 18:00 128/58 06/30/19 17:27 79 21 35 06/30/19 17:00 76 16 126/64 (84) 100 06/30/19 17:00 126/64 06/30/19 16:45 73 17 125/57 (79) 100 06/30/19 16:30 71 16 127/60 (82) 100 06/30/19 16:15 64 16 127/60 (82) 100 06/30/19 16:00 99.6 65 16 106/51 (69) 100 06/30/19 16:00 99/47 06/30/19 16:00 35 06/30/19 16:00 Mechanical Ventilator 06/30/19 15:45 68 16 102/49 (66) 99 06/30/19 15:33 74 06/30/19 15:30 73 17 131/62 (85) 99 06/30/19 15:15 75 17 129/74 (92) 100 06/30/19 15:00 129/74 06/30/19 15:00 78 15 137/60 (85) 99 06/30/19 14:54 79 19 35 06/30/19 14:45 79 17 141/70 (93) 100 06/30/19 14:30 78 18 141/61 (87) 99 06/30/19 14:15 77 17 129/61 (83) 99 06/30/19 14:00 77 17 131/87 (102) 100 06/30/19 14:00 129/61 06/30/19 13:45 74 17 126/65 (85) 100 06/30/19 13:30 77 16 106/56 (73) 99 06/30/19 13:15 77 16 117/57 (77) 99 06/30/19 13:00 122/67 06/30/19 13:00 77 15 122/67 (85) 99 06/30/19 12:58 75 16 35 06/30/19 12:45 84 18 130/70 (90) 100 06/30/19 12:30 81 26 137/78 (97) 97 06/30/19 12:15 76 18 127/66 (86) 98 06/30/19 12:12 68 06/30/19 12:08 125/53 06/30/19 12:00 35 06/30/19 12:00 98.9 79 18 125/53 (77) 97 06/30/19 12:00 127/66 06/30/19 12:00 Mechanical Ventilator 06/30/19 11:45 77 23 120/57 (78) 98 06/30/19 11:30 73 20 114/47 (69) 98 06/30/19 11:15 64 15 92/44 (60) 100 06/30/19 11:00 73 15 121/41 (67) 97 06/30/19 11:00 121/41 06/30/19 10:45 78 18 123/106 (112) 97 06/30/19 10:42 78 16 35 06/30/19 10:40 123/106 06/30/19 10:30 72 19 109/93 (98) 98 Status: sedated Condition: critical Neck: trach Lungs: rhonchi Heart: HR/BP stable, edema Abdomen: soft, active bowel sounds Extremities: no C/C/E Micro: Microbiology Date/Time Source Procedure Growth Status 06/30/19 13:40 Urine,Clean Catch Urine Culture - Preliminary Resulted Critical Care - Subjective ROS Limited/Unobtainable: No Condition: critical EKG Rhythm: Sinus Rhythm FI02: 35 Vent Support Breath Rate: 16 Vent Support Mode: AC Vent Tidal Volume: 600 Sputum Amount: Small PEEP: 0.0 PIP: 32 Drips: on levophed Tube Feeding Amount: 65 I&O: Intake and Output 06/30/19 07/01/19 19:00 07:00 Intake Total 1842.5 ml 1355 ml Output Total 1250 ml 1490 ml Balance 592.5 ml -135 ml IV Total 1137.5 ml 835 ml Tube Feeding 585 ml 520 ml Other 120 ml Output Urine Total 1250 ml 1490 ml Labs: Laboratory Tests Test 06/30/19 13:40 07/01/19 05:20 07/01/19 05:45 Urine Color Pale yellow Urine Appearance Clear Urine pH 7 (4.5-8.0) Urine Specific [place] 1.005 (1.005-1.035) Urine Protein 1+ (NEGATIVE) H Urine Glucose (UA) Negative (NEGATIVE) Urine Ketones Negative (NEGATIVE) Urine Blood 3+ (NEGATIVE) H Urine Nitrite Negative (NEGATIVE) Urine Bilirubin Negative (NEGATIVE) Urine Urobilinogen Normal MG/DL (0.0-1.0) Urine Leukocyte Esterase 3+ (NEGATIVE) H Urine RBC 10-15 /HPF (0 - 0) H Urine WBC Tntc /HPF (0 - 0) H Urine Squamous Epithelial Cells Occasional /LPF Urine Bacteria Many /HPF (NONE) H White Blood Count 6.3 K/UL (4.8-10.8) # Red Blood Count 2.83 M/UL (4.70-6.10) L Hemoglobin 7.9 G/DL (14.2-18.0) L Hematocrit 24.3 % (42.0-52.0) L Mean Corpuscular Volume 86 FL (80-99) Mean Corpuscular Hemoglobin 28.0 PG (27.0-31.0) Mean Corpuscular Hemoglobin Concent 32.6 G/DL (32.0-36.0) Red Cell Distribution Width 16.0 % (11.6-14.8) H Platelet Count 343 K/UL (150-450) Mean Platelet Volume 7.6 FL (6.5-10.1) Neutrophils (%) (Auto) % (45.0-75.0) Lymphocytes (%) (Auto) % (20.0-45.0) Monocytes (%) (Auto) % (1.0-10.0) Eosinophils (%) (Auto) % (0.0-3.0) Basophils (%) (Auto) % (0.0-2.0) Sodium Level 142 MMOL/L (136-145) Potassium Level 4.2 MMOL/L (3.5-5.1) Chloride Level 110 MMOL/L (98-107) H Carbon Dioxide Level 25 MMOL/L (21-32) Anion Gap 7 mmol/L (5-15) Blood Urea Nitrogen 19 mg/dL (7-18) H Creatinine 1.4 MG/DL (0.55-1.30) H Estimat Glomerular Filtration Rate 50.1 mL/min (>60) Glucose Level 129 MG/DL (74-106) #H Uric Acid 4.5 MG/DL (2.6-7.2) Calcium Level 8.3 MG/DL (8.5-10.1) L Phosphorus Level 2.6 MG/DL (2.5-4.9) Magnesium Level 1.8 MG/DL (1.8-2.4) Total Bilirubin 0.2 MG/DL (0.2-1.0) Aspartate Amino Transf (AST/SGOT) 18 U/L (15-37) Alanine Aminotransferase (ALT/SGPT) 30 U/L (12-78) Alkaline Phosphatase 180 U/L (46-116) H C-Reactive Protein, Quantitative 13.9 mg/dL (0.00-0.90) H Pro-B-Type Natriuretic Peptide 8413 pg/mL (0-125) H Total Protein 5.7 G/DL (6.4-8.2) L Albumin 2.0 G/DL (3.4-5.0) L Globulin 3.7 g/dL Albumin/Globulin Ratio 0.5 (1.0-2.7) L Phenytoin (Dilantin) Level 16.2 ug/mL (10-20) Phenobarbital Level 17.5 ug/mL (15-40) Arterial Blood pH 7.447 (7.350-7.450) Arterial Blood Partial Pressure CO2 33.1 mmHg (35.0-45.0) L Arterial Blood Partial Pressure O2 128.5 mmHg (75.0-100.0) H Arterial Blood HCO3 22.3 mmol/L (22.0-26.0) Arterial Blood Oxygen Saturation 97.9 % (95-100) Arterial Blood Base Excess -1.3 (-2-2) Ger Test Positive Huma Keating MD Jul 01, 2019 10:20
--- NOTE | 2019-07-01 10:20 | NUR ---
NURSE NOTES: Patient seen by Dr. Keating. Updated MD on pt's condition and labs. No new orders at this time. Patient on Levophed at 4mcg/min, BP 91/52.
--- NOTE | 2019-07-01 10:50 | NUR ---
NURSE NOTES: Dr. Salvador in facility to assess the patient. MD made aware of VS and patient on levophed at 4mcg/min.
--- NOTE | 2019-07-01 12:06 | Infectious Diseases Prog Note ---
Assessment/Plan Assessment/Plan Mr. Huffman is a 68 yo male with PMHx of of chronic resp failure trach/vent dependant, diffuse ulcerative esophagitis, peptic esophageal stricture, asthma, GERD, Dm2, CVA/TIA w/ hemiplegia, functional quadriplegia, CAD, CHF, ESBL UTI , GIB s/p multiple EGDs in the past, schizoaffective disorder, Dementia, hypothyroidism, malnutrition, non verbal, infected obstuctive ureterolithiasis/ w abscess s/p L NT palced 12/2018, encephalopathy, Alzheimer's disease, multiple admissions, subacute facility resident who was sent to the for hypotension and bradycardia. Shock, recurrent (06/29)- r/o septic vs neurogenic -06/30 u/a tntc, nit neg, leuk +3; ucx p Bcx p CXR: Bilateral pleural effusions and bilateral interstitial and airspace edema are unchanged. Status epilepticus Leukocytosis; mild recurrent- resolved Hypothermia; SP > Low grade fever 06/30 Septic Shock, SP- likely 2ry to UTI and PNA, sp Rx off pressors now Hx of resistant infections 06/23 CXR; Bilateral right greater than left pleural effusions are again demonstrated. Bilateral interstitial and airspace edema persists, unchanged Urine Cx 06/14/19 - >100k ESBL P, stuarti, ESBL P mirabilis (both S Ertapenem , ZOsyn) Blood Cx - NTD CXR show probable pna sp cx PsA (R imipenem, I levaquin), S. maltophila (S bactrim, levaquin) GT leakage with cellulitis, SP -wound cx MDR/CRE K.pna, MDR PsA (colonizers) Chronic resp failure trach/vent dependant asthma Dm2 CVA/TIA w/ hemiplegia Functional quadriplegia CAD CHF GIB s/p multiple EGDs in the past Schizoaffective disorder Dementia Hypothyroidism Non verbal Alzheimer's disease PLAN: -Cont empiric IV Vancomycin and Cefepime #2 -06/27 SP Levaquin #5 -06/24 SP IV Amikacin # -06/23 SP Ertapenem #9 and IV Vancomycin #9 -06/17 SP PO Vancomycin #3 -06/16 SP Flagyl #2 - monitor CBC and Temps -wound care per hospital protocol -GI f/u -u/a w/ reflex, Bcx x2, sp cx -CXR Thank you for this consult. [facility] will continue to follow the patient with you during this hospitalization. Subjective Allergies: Coded Allergies: NO KNOWN DRUG ALLERGIES (Verified Allergy, Unknown, 09/11/16) Subjective Tm 100.4 leukocytosis resolved levophed at 4 Objective Vital Signs Last 24 Hour Vital Signs Date Time Temp Pulse Resp B/P (MAP) Pulse Ox O2 Delivery O2 Flow Rate FiO2 07/01/19 11:30 119/57 07/01/19 11:30 70 17 119/57 (77) 100 07/01/19 11:23 72 16 35 07/01/19 11:15 87/40 07/01/19 11:15 63 16 87/40 (56) 99 07/01/19 11:00 96/47 07/01/19 11:00 69 18 96/47 (63) 100 07/01/19 10:45 64 16 108/52 (70) 100 07/01/19 10:45 108/52 07/01/19 10:30 68 17 103/46 (65) 100 07/01/19 10:30 103/46 07/01/19 10:15 64 16 98/45 (62) 100 07/01/19 10:15 98/45 07/01/19 10:10 61 16 77/37 (50) 99 07/01/19 10:10 77/37 07/01/19 10:05 63 16 90/40 (57) 100 07/01/19 10:00 70/32 07/01/19 10:00 63 16 70/32 (45) 99 07/01/19 09:45 71 17 90/43 (59) 99 07/01/19 09:30 79 16 106/52 (70) 98 07/01/19 09:15 75 17 115/50 (71) 98 07/01/19 09:15 115/50 07/01/19 09:00 70 16 35 07/01/19 09:00 108/52 07/01/19 09:00 75 16 108/52 (70) 100 07/01/19 08:45 73 17 122/65 (84) 100 07/01/19 08:45 122/65 07/01/19 08:30 67 16 129/65 (86) 100 07/01/19 08:30 129/65 07/01/19 08:00 30 07/01/19 08:00 99.1 66 17 129/65 (86) 100 07/01/19 08:00 129/65 07/01/19 08:00 62 07/01/19 08:00 Mechanical Ventilator 07/01/19 07:30 60 16 100/52 (68) 100 07/01/19 07:20 59 16 35 07/01/19 07:00 122/57 07/01/19 07:00 67 16 122/57 (78) 100 07/01/19 06:00 77 16 119/67 (84) 100 07/01/19 06:00 119/67 07/01/19 05:30 76 17 35 07/01/19 05:30 80 16 122/64 (83) 99 07/01/19 05:00 121/61 07/01/19 05:00 82 22 121/61 (81) 07/01/19 04:30 85 16 107/49 (68) 99 07/01/19 04:00 99.7 81 17 108/52 (70) 100 07/01/19 04:00 30 07/01/19 04:00 Mechanical Ventilator 07/01/19 03:30 72 18 102/50 (67) 99 07/01/19 03:11 73 07/01/19 03:10 70 16 35 07/01/19 03:00 76 17 110/51 (70) 99 07/01/19 02:30 71 18 103/48 (66) 99 07/01/19 02:00 72 16 106/47 (66) 99 07/01/19 02:00 106/47 07/01/19 01:30 73 15 98/45 (62) 99 07/01/19 01:00 73 15 97/46 (63) 99 07/01/19 01:00 84 24 35 07/01/19 01:00 99/54 07/01/19 00:52 99/54 07/01/19 00:30 69 16 102/46 (64) 07/01/19 00:00 Mechanical Ventilator 07/01/19 00:00 98.0 70 17 108/51 (70) 07/01/19 00:00 108/51 07/01/19 00:00 30 07/01/19 00:00 68 06/30/19 23:30 68 16 96/47 (63) 06/30/19 23:12 81 24 35 06/30/19 23:00 94/43 06/30/19 23:00 67 16 94/43 (60) 06/30/19 22:30 75 17 94/47 (63) 06/30/19 22:15 78 16 103/49 (67) 06/30/19 22:00 105/44 06/30/19 22:00 74 18 105/44 (64) 06/30/19 21:45 77 16 105/57 (73) 06/30/19 21:30 77 20 108/39 (62) 06/30/19 21:15 77 18 95/37 (56) 06/30/19 21:00 81 18 105/50 (68) 06/30/19 21:00 105/50 06/30/19 21:00 84 21 35 06/30/19 20:45 79 18 92/54 (67) 06/30/19 20:30 81 16 94/36 (55) 06/30/19 20:15 81 17 94/66 (75) 98 06/30/19 20:00 Mechanical Ventilator 06/30/19 20:00 95/52 06/30/19 20:00 30 06/30/19 20:00 98.4 80 18 95/52 (66) 99 06/30/19 20:00 82 06/30/19 19:50 98.4 06/30/19 19:45 81 21 90/60 (70) 99 06/30/19 19:30 83 18 114/61 (78) 99 06/30/19 19:00 84 17 121/64 (83) 98 06/30/19 19:00 121/64 06/30/19 19:00 81 22 35 06/30/19 18:45 100.4 87 20 121/64 (83) 99 06/30/19 18:30 86 17 119/50 (73) 97 06/30/19 18:15 86 18 128/58 (81) 98 06/30/19 18:00 84 14 127/56 (79) 98 06/30/19 18:00 128/58 06/30/19 17:27 79 21 35 06/30/19 17:00 76 16 126/64 (84) 100 06/30/19 17:00 126/64 06/30/19 16:45 73 17 125/57 (79) 100 06/30/19 16:30 71 16 127/60 (82) 100 06/30/19 16:15 64 16 127/60 (82) 100 06/30/19 16:00 99.6 65 16 106/51 (69) 100 06/30/19 16:00 99/47 06/30/19 16:00 35 06/30/19 16:00 Mechanical Ventilator 06/30/19 15:45 68 16 102/49 (66) 99 06/30/19 15:33 74 06/30/19 15:30 73 17 131/62 (85) 99 06/30/19 15:15 75 17 129/74 (92) 100 06/30/19 15:00 129/74 06/30/19 15:00 78 15 137/60 (85) 99 06/30/19 14:54 79 19 35 06/30/19 14:45 79 17 141/70 (93) 100 06/30/19 14:30 78 18 141/61 (87) 99 06/30/19 14:15 77 17 129/61 (83) 99 06/30/19 14:00 77 17 131/87 (102) 100 06/30/19 14:00 129/61 06/30/19 13:45 74 17 126/65 (85) 100 06/30/19 13:30 77 16 106/56 (73) 99 06/30/19 13:15 77 16 117/57 (77) 99 06/30/19 13:00 122/67 06/30/19 13:00 77 15 122/67 (85) 99 06/30/19 12:58 75 16 35 06/30/19 12:45 84 18 130/70 (90) 100 06/30/19 12:30 81 26 137/78 (97) 97 06/30/19 12:15 76 18 127/66 (86) 98 06/30/19 12:12 68 06/30/19 12:08 125/53 Height (Feet): 5 Height (Inches): 8.00 Weight (Pounds): 198 Objective Gen: On vent in IVU HEENT: NCAT, MMM, PERRL, No Oral lesion, no scleral icterus NECK: supple, No LAD, No JVD, Trached LUNGS: Coarse B/L, No W/C CARDS: RRR, S1, S2, No M/R/G, ABD: Soft, NT, ND, No R/G, + BS, No HSM, No Masses, PEG : Deferred Ext: C/C/E, Pulses 2+ B/L (DP, Rad): NEURO: A/O x 0, no following SKIN: Warm/dry, No rashes Microbiology Date/Time Source Procedure Growth Status 06/30/19 13:40 Urine,Clean Catch Urine Culture - Preliminary Resulted Laboratory Tests Test 06/30/19 13:40 07/01/19 05:20 07/01/19 05:45 Urine Color Pale yellow Urine Appearance Clear Urine pH 7 (4.5-8.0) Urine Specific [place] 1.005 (1.005-1.035) Urine Protein 1+ (NEGATIVE) H Urine Glucose (UA) Negative (NEGATIVE) Urine Ketones Negative (NEGATIVE) Urine Blood 3+ (NEGATIVE) H Urine Nitrite Negative (NEGATIVE) Urine Bilirubin Negative (NEGATIVE) Urine Urobilinogen Normal MG/DL (0.0-1.0) Urine Leukocyte Esterase 3+ (NEGATIVE) H Urine RBC 10-15 /HPF (0 - 0) H Urine WBC Tntc /HPF (0 - 0) H Urine Squamous Epithelial Cells Occasional /LPF Urine Bacteria Many /HPF (NONE) H White Blood Count 6.3 K/UL (4.8-10.8) # Red Blood Count 2.83 M/UL (4.70-6.10) L Hemoglobin 7.9 G/DL (14.2-18.0) L Hematocrit 24.3 % (42.0-52.0) L Mean Corpuscular Volume 86 FL (80-99) Mean Corpuscular Hemoglobin 28.0 PG (27.0-31.0) Mean Corpuscular Hemoglobin Concent 32.6 G/DL (32.0-36.0) Red Cell Distribution Width 16.0 % (11.6-14.8) H Platelet Count 343 K/UL (150-450) Mean Platelet Volume 7.6 FL (6.5-10.1) Neutrophils (%) (Auto) % (45.0-75.0) Lymphocytes (%) (Auto) % (20.0-45.0) Monocytes (%) (Auto) % (1.0-10.0) Eosinophils (%) (Auto) % (0.0-3.0) Basophils (%) (Auto) % (0.0-2.0) Sodium Level 142 MMOL/L (136-145) Potassium Level 4.2 MMOL/L (3.5-5.1) Chloride Level 110 MMOL/L (98-107) H Carbon Dioxide Level 25 MMOL/L (21-32) Anion Gap 7 mmol/L (5-15) Blood Urea Nitrogen 19 mg/dL (7-18) H Creatinine 1.4 MG/DL (0.55-1.30) H Estimat Glomerular Filtration Rate 50.1 mL/min (>60) Glucose Level 129 MG/DL (74-106) #H Uric Acid 4.5 MG/DL (2.6-7.2) Calcium Level 8.3 MG/DL (8.5-10.1) L Phosphorus Level 2.6 MG/DL (2.5-4.9) Magnesium Level 1.8 MG/DL (1.8-2.4) Total Bilirubin 0.2 MG/DL (0.2-1.0) Aspartate Amino Transf (AST/SGOT) 18 U/L (15-37) Alanine Aminotransferase (ALT/SGPT) 30 U/L (12-78) Alkaline Phosphatase 180 U/L (46-116) H C-Reactive Protein, Quantitative 13.9 mg/dL (0.00-0.90) H Pro-B-Type Natriuretic Peptide 8413 pg/mL (0-125) H Total Protein 5.7 G/DL (6.4-8.2) L Albumin 2.0 G/DL (3.4-5.0) L Globulin 3.7 g/dL Albumin/Globulin Ratio 0.5 (1.0-2.7) L Phenytoin (Dilantin) Level 16.2 ug/mL (10-20) Phenobarbital Level 17.5 ug/mL (15-40) Arterial Blood pH 7.447 (7.350-7.450) Arterial Blood Partial Pressure CO2 33.1 mmHg (35.0-45.0) L Arterial Blood Partial Pressure O2 128.5 mmHg (75.0-100.0) H Arterial Blood HCO3 22.3 mmol/L (22.0-26.0) Arterial Blood Oxygen Saturation 97.9 % (95-100) Arterial Blood Base Excess -1.3 (-2-2) Ger Test Positive Current Medications Medications (Trade) Dose Ordered Sig/Wanda Route PRN Reason Start Time Stop Time Status Last Admin Dose Admin Acetaminophen (Tylenol) 650 mg Q4H PRN GT fever (temp>100.5F) 06/29/19 19:33 07/29/19 19:32 06/30/19 18:54 Cefepime HCl 1 gm/ Dextrose 55 ml @ 110 mls/hr EVERY 12 HOURS IVPB 06/30/19 13:30 07/07/19 13:29 07/01/19 08:42 Chlorhexidine Gluconate (Jasmin-Hex 2%) 1 applic DAILY@2000 TOPIC 06/29/19 20:00 07/20/19 19:59 06/30/19 20:09 Dextrose/Sodium Chloride 1,000 ml @ 50 mls/hr Q20H IV 06/30/19 14:30 07/30/19 14:29 07/01/19 09:46 Levothyroxine Sodium (Synthroid) 88 mcg DAILY@0630 GT 06/30/19 06:30 07/20/19 06:29 07/01/19 06:08 Lorazepam (Ativan 2mg/ml 1ml) 2 mg Q4H PRN IVP For Seizures 06/29/19 19:33 07/06/19 19:32 Midodrine (Pro-Amatine) 2.5 mg EVERY 8 HOURS GT 06/29/19 22:00 07/17/19 12:59 07/01/19 06:08 Norepinephrine Bitartrate 4 mg/ Dextrose 250 ml @ 0 mls/hr Q24H IV 06/29/19 22:30 07/29/19 22:29 07/01/19 00:52 Ondansetron HCl (Zofran) 4 mg Q6H PRN IVP Nausea & Vomiting 06/29/19 19:33 07/29/19 19:32 Pantoprazole (Protonix) 40 mg EVERY 12 HOURS IVP 06/29/19 21:00 07/21/19 08:59 07/01/19 08:42 Phenobarbital (PHENobarbital) 90 mg DAILY IVP 06/30/19 09:00 07/30/19 08:59 07/01/19 09:45 Phenytoin (Dilantin) 100 mg Q8HR GT 06/29/19 22:00 07/26/19 21:59 07/01/19 06:09 Polyethylene Glycol (Miralax) 17 gm DAILYPRN PRN GT Constipation 06/29/19 19:33 07/29/19 19:32 Sucralfate (Carafate) 1 gm EVERY 8 HOURS GT 06/29/19 22:00 07/21/19 08:59 07/01/19 06:08 Vancomycin HCl (Vanco rx to dose) 1 ea DAILY PRN MISC Per rx protocol 06/30/19 12:15 07/30/19 12:14 Vancomycin HCl 1 gm/Dextrose 275 ml @ 183.708 mls/hr Q24H IVPB 07/01/19 15:00 07/06/19 14:59 Zinc Oxide (Zinc Oxide) 1 applic QHS TOPIC 06/29/19 21:00 07/21/19 08:59 06/30/19 20:11 Lisy Lai M.D. Jul 01, 2019 12:06
--- NOTE | 2019-07-01 12:21 | Surgery Progress Note ---
Surgery Progress Note Subjective Additional Comments leukocytosis resolved anemia bun/cr elevated kub and cxr noted Objective Last 24 Hour Vital Signs Date Time Temp Pulse Resp B/P (MAP) Pulse Ox O2 Delivery O2 Flow Rate FiO2 07/01/19 11:30 119/57 07/01/19 11:30 70 17 119/57 (77) 100 07/01/19 11:23 72 16 35 07/01/19 11:15 87/40 07/01/19 11:15 63 16 87/40 (56) 99 07/01/19 11:00 96/47 07/01/19 11:00 69 18 96/47 (63) 100 07/01/19 10:45 64 16 108/52 (70) 100 07/01/19 10:45 108/52 07/01/19 10:30 68 17 103/46 (65) 100 07/01/19 10:30 103/46 07/01/19 10:15 64 16 98/45 (62) 100 07/01/19 10:15 98/45 07/01/19 10:10 61 16 77/37 (50) 99 07/01/19 10:10 77/37 07/01/19 10:05 63 16 90/40 (57) 100 07/01/19 10:00 70/32 07/01/19 10:00 63 16 70/32 (45) 99 07/01/19 09:45 71 17 90/43 (59) 99 07/01/19 09:30 79 16 106/52 (70) 98 07/01/19 09:15 75 17 115/50 (71) 98 07/01/19 09:15 115/50 07/01/19 09:00 70 16 35 07/01/19 09:00 108/52 07/01/19 09:00 75 16 108/52 (70) 100 07/01/19 08:45 73 17 122/65 (84) 100 07/01/19 08:45 122/65 07/01/19 08:30 67 16 129/65 (86) 100 07/01/19 08:30 129/65 07/01/19 08:00 30 07/01/19 08:00 99.1 66 17 129/65 (86) 100 07/01/19 08:00 129/65 07/01/19 08:00 62 07/01/19 08:00 Mechanical Ventilator 07/01/19 07:30 60 16 100/52 (68) 100 07/01/19 07:20 59 16 35 07/01/19 07:00 122/57 07/01/19 07:00 67 16 122/57 (78) 100 07/01/19 06:00 77 16 119/67 (84) 100 07/01/19 06:00 119/67 07/01/19 05:30 76 17 35 07/01/19 05:30 80 16 122/64 (83) 99 07/01/19 05:00 121/61 07/01/19 05:00 82 22 121/61 (81) 07/01/19 04:30 85 16 107/49 (68) 99 07/01/19 04:00 99.7 81 17 108/52 (70) 100 07/01/19 04:00 30 07/01/19 04:00 Mechanical Ventilator 07/01/19 03:30 72 18 102/50 (67) 99 07/01/19 03:11 73 07/01/19 03:10 70 16 35 07/01/19 03:00 76 17 110/51 (70) 99 07/01/19 02:30 71 18 103/48 (66) 99 07/01/19 02:00 72 16 106/47 (66) 99 07/01/19 02:00 106/47 07/01/19 01:30 73 15 98/45 (62) 99 07/01/19 01:00 73 15 97/46 (63) 99 07/01/19 01:00 84 24 35 07/01/19 01:00 99/54 07/01/19 00:52 99/54 07/01/19 00:30 69 16 102/46 (64) 07/01/19 00:00 Mechanical Ventilator 07/01/19 00:00 98.0 70 17 108/51 (70) 07/01/19 00:00 108/51 07/01/19 00:00 30 07/01/19 00:00 68 06/30/19 23:30 68 16 96/47 (63) 06/30/19 23:12 81 24 35 06/30/19 23:00 94/43 06/30/19 23:00 67 16 94/43 (60) 06/30/19 22:30 75 17 94/47 (63) 06/30/19 22:15 78 16 103/49 (67) 06/30/19 22:00 105/44 06/30/19 22:00 74 18 105/44 (64) 06/30/19 21:45 77 16 105/57 (73) 06/30/19 21:30 77 20 108/39 (62) 06/30/19 21:15 77 18 95/37 (56) 06/30/19 21:00 81 18 105/50 (68) 06/30/19 21:00 105/50 06/30/19 21:00 84 21 35 06/30/19 20:45 79 18 92/54 (67) 06/30/19 20:30 81 16 94/36 (55) 06/30/19 20:15 81 17 94/66 (75) 98 06/30/19 20:00 Mechanical Ventilator 06/30/19 20:00 95/52 06/30/19 20:00 30 06/30/19 20:00 98.4 80 18 95/52 (66) 99 06/30/19 20:00 82 06/30/19 19:50 98.4 06/30/19 19:45 81 21 90/60 (70) 99 06/30/19 19:30 83 18 114/61 (78) 99 06/30/19 19:00 84 17 121/64 (83) 98 06/30/19 19:00 121/64 06/30/19 19:00 81 22 35 06/30/19 18:45 100.4 87 20 121/64 (83) 99 06/30/19 18:30 86 17 119/50 (73) 97 06/30/19 18:15 86 18 128/58 (81) 98 06/30/19 18:00 84 14 127/56 (79) 98 06/30/19 18:00 128/58 06/30/19 17:27 79 21 35 06/30/19 17:00 76 16 126/64 (84) 100 06/30/19 17:00 126/64 06/30/19 16:45 73 17 125/57 (79) 100 06/30/19 16:30 71 16 127/60 (82) 100 06/30/19 16:15 64 16 127/60 (82) 100 06/30/19 16:00 99.6 65 16 106/51 (69) 100 06/30/19 16:00 99/47 06/30/19 16:00 35 06/30/19 16:00 Mechanical Ventilator 06/30/19 15:45 68 16 102/49 (66) 99 06/30/19 15:33 74 06/30/19 15:30 73 17 131/62 (85) 99 06/30/19 15:15 75 17 129/74 (92) 100 06/30/19 15:00 129/74 06/30/19 15:00 78 15 137/60 (85) 99 06/30/19 14:54 79 19 35 06/30/19 14:45 79 17 141/70 (93) 100 06/30/19 14:30 78 18 141/61 (87) 99 06/30/19 14:15 77 17 129/61 (83) 99 06/30/19 14:00 77 17 131/87 (102) 100 06/30/19 14:00 129/61 06/30/19 13:45 74 17 126/65 (85) 100 06/30/19 13:30 77 16 106/56 (73) 99 06/30/19 13:15 77 16 117/57 (77) 99 06/30/19 13:00 122/67 06/30/19 13:00 77 15 122/67 (85) 99 06/30/19 12:58 75 16 35 06/30/19 12:45 84 18 130/70 (90) 100 06/30/19 12:30 81 26 137/78 (97) 97 I&O Intake and Output 06/30/19 07/01/19 19:00 07:00 Intake Total 1842.5 ml 1355 ml Output Total 1250 ml 1490 ml Balance 592.5 ml -135 ml IV Total 1137.5 ml 835 ml Tube Feeding 585 ml 520 ml Other 120 ml Output Urine Total 1250 ml 1490 ml Dressing: other Wound: other Drains: other Cardiovascular: RSR Respiratory: decreased breath sounds Abdomen: soft, non-distended, decreased bowel sounds Extremities: no cyanosis, other Laboratory Tests Test 06/30/19 13:40 07/01/19 05:20 07/01/19 05:45 Urine Color Pale yellow Urine Appearance Clear Urine pH 7 (4.5-8.0) Urine Specific [place] 1.005 (1.005-1.035) Urine Protein 1+ (NEGATIVE) H Urine Glucose (UA) Negative (NEGATIVE) Urine Ketones Negative (NEGATIVE) Urine Blood 3+ (NEGATIVE) H Urine Nitrite Negative (NEGATIVE) Urine Bilirubin Negative (NEGATIVE) Urine Urobilinogen Normal MG/DL (0.0-1.0) Urine Leukocyte Esterase 3+ (NEGATIVE) H Urine RBC 10-15 /HPF (0 - 0) H Urine WBC Tntc /HPF (0 - 0) H Urine Squamous Epithelial Cells Occasional /LPF Urine Bacteria Many /HPF (NONE) H White Blood Count 6.3 K/UL (4.8-10.8) # Red Blood Count 2.83 M/UL (4.70-6.10) L Hemoglobin 7.9 G/DL (14.2-18.0) L Hematocrit 24.3 % (42.0-52.0) L Mean Corpuscular Volume 86 FL (80-99) Mean Corpuscular Hemoglobin 28.0 PG (27.0-31.0) Mean Corpuscular Hemoglobin Concent 32.6 G/DL (32.0-36.0) Red Cell Distribution Width 16.0 % (11.6-14.8) H Platelet Count 343 K/UL (150-450) Mean Platelet Volume 7.6 FL (6.5-10.1) Neutrophils (%) (Auto) % (45.0-75.0) Lymphocytes (%) (Auto) % (20.0-45.0) Monocytes (%) (Auto) % (1.0-10.0) Eosinophils (%) (Auto) % (0.0-3.0) Basophils (%) (Auto) % (0.0-2.0) Sodium Level 142 MMOL/L (136-145) Potassium Level 4.2 MMOL/L (3.5-5.1) Chloride Level 110 MMOL/L (98-107) H Carbon Dioxide Level 25 MMOL/L (21-32) Anion Gap 7 mmol/L (5-15) Blood Urea Nitrogen 19 mg/dL (7-18) H Creatinine 1.4 MG/DL (0.55-1.30) H Estimat Glomerular Filtration Rate 50.1 mL/min (>60) Glucose Level 129 MG/DL (74-106) #H Uric Acid 4.5 MG/DL (2.6-7.2) Calcium Level 8.3 MG/DL (8.5-10.1) L Phosphorus Level 2.6 MG/DL (2.5-4.9) Magnesium Level 1.8 MG/DL (1.8-2.4) Total Bilirubin 0.2 MG/DL (0.2-1.0) Aspartate Amino Transf (AST/SGOT) 18 U/L (15-37) Alanine Aminotransferase (ALT/SGPT) 30 U/L (12-78) Alkaline Phosphatase 180 U/L (46-116) H C-Reactive Protein, Quantitative 13.9 mg/dL (0.00-0.90) H Pro-B-Type Natriuretic Peptide 8413 pg/mL (0-125) H Total Protein 5.7 G/DL (6.4-8.2) L Albumin 2.0 G/DL (3.4-5.0) L Globulin 3.7 g/dL Albumin/Globulin Ratio 0.5 (1.0-2.7) L Phenytoin (Dilantin) Level 16.2 ug/mL (10-20) Phenobarbital Level 17.5 ug/mL (15-40) Arterial Blood pH 7.447 (7.350-7.450) Arterial Blood Partial Pressure CO2 33.1 mmHg (35.0-45.0) L Arterial Blood Partial Pressure O2 128.5 mmHg (75.0-100.0) H Arterial Blood HCO3 22.3 mmol/L (22.0-26.0) Arterial Blood Oxygen Saturation 97.9 % (95-100) Arterial Blood Base Excess -1.3 (-2-2) Ger Test Positive Plan Problems: (1) Severe protein-calorie malnutrition Assessment & Plan: DAILY ESTIMATED NEEDS: Needs based on Critical care, underweight TF FLAT DRIER 56.8 30-35 kcals/kg 5135-8835 total kcals 1.25-2 g protein/kg 71-113.6 g total protein 25-30 mL/kg 3302-4728 total fluid mLs NUTRITION DIAGNOSIS: * Increased kcal/prot intake needs R/T sepsis and underweight status as evidenced by pt adm w/ critically elev WBC (35.7*), febrile, @68% [place] Body Weight. * Swallowing difficulty R/T respiratory status as evidenced by pt vent dep via trach, PEG dep. ENTERAL NUTRITION RECOMMENDATIONS: Nepro @45mL/hr x 22hr to provide 990mL, 1782kcal, 80g pro, 720mL free water -When Hemodynamically stable, start Nepro @ 15mL/hr for 6 hrs. -Advance as tolerated 10mL q 4-6 hrs to goal. -TF @goal meets 100% est needs. -Flush per MD/ HOB >30 degrees. ADDITIONAL RECOMMENDATIONS: * Calibrated bedscale weight for accurate CBW + weekly wt monitoring * Per SNF: Ht of 6'1", Wt 125# (05/2019) * TF recs as above when medically stable * Monitor for cont'd need of renal formula (K 5.5) * Monitor lytes and hydration status. (2) Feeding by G-tube Assessment & Plan: g tube changed (3) Respiratory failure, [id number] (4) Septic shock Assessment & Plan: Acute decline with hypertension tachycardia now on pressors Labs as above Detailed examination done and abdominal distention noted. kub okay cxr noted exam stable will follow with recs thank you (5) Severe sepsis (6) GT SITE LEAKING Assessment & Plan: Patient identified worsening G-tube site leakage and cellulitis. This has been noted on prior admissions which is cared for. Plan for placement as below Pt presents with contractures. Skin erosions to abdominal region, and multiple areas of non-blanching erythema. Skin erosion noted to abdomen extending around GT and mostly to L abdominal area, skin is grossly red and excoriated. Furuncle noted to L flank oozing moderate amt purulent exudate. Non-blanchable erythema without fluctuance noted to L lateral malleolus (L) 1.5cm x (W)3cm. Non-blanchable erythema without fluctuance noted to lateral L foot (L)1cm x (W) 1cm. Non-blanchable erythema noted to sacral cleft. No other skin concerns noted. Tx.Plan: Apply Zinc Oxide Paste to GT site and excoriated areas on abd daily and prn. Apply Betadine to Boil L flank Daily .Cover with Optifoam drsg. Change daily and prn. Apply Moisture Barrier Paste to sacrum. Cover with Optifoam drsg. Change every 3 days and prn. Apply Cavilon to Non-blanchable areas L foot and bilat heels. Cover each site with Optifoam drsg. Change every 7 days and prn. Reposition at least every 2hours or as tolerated. Place pillow between knees. Off-load heels with pillow. APM/RENO Mattress overlay. Quirino Bernard Jul 01, 2019 12:21
--- NOTE | 2019-07-01 12:37 | NUR ---
NURSE NOTES: Dr. Viveros at bedside to see the patient. Levophed running at 2mcg/min.
--- NOTE | 2019-07-01 12:48 | General Progress Note ---
Assessment/Plan Problem List: (1) Diabetes ICD Codes: E11.9 - Type 2 diabetes mellitus without complications SNOMED: 78011576 (2) HTN (hypertension) ICD Codes: I10 - Essential (primary) hypertension SNOMED: 03666466 (3) CVA (cerebral vascular accident) ICD Codes: I63.9 - Cerebral infarction, unspecified SNOMED: 323481996 (4) Severe protein-calorie malnutrition ICD Codes: E43 - Unspecified severe protein-calorie malnutrition SNOMED: 622501848 (5) Feeding by G-tube ICD Codes: Z93.1 - Gastrostomy status SNOMED: 084443750, 594323755 (6) Respiratory failure, [id number] ICD Codes: J96.20 - Respiratory failure, [id number] SNOMED: 52876845 (7) Anemia ICD Codes: D64.9 - Anemia, unspecified SNOMED: 092799370 (8) Chronic respiratory failure ICD Codes: J96.10 - Chronic respiratory failure, unspecified whether with hypoxia or hypercapnia SNOMED: 59198379 (9) Septic shock ICD Codes: A41.9 - Sepsis, unspecified organism; R65.21 - Severe sepsis with septic shock SNOMED: 74638639 (10) Alzheimer's dementia ICD Codes: G30.9 - Alzheimer's disease, unspecified SNOMED: 99427118 (11) Severe sepsis ICD Codes: A41.9 - Sepsis, unspecified organism; R65.20 - Severe sepsis without septic shock SNOMED: 04107201 (12) Hypothyroidism ICD Codes: E03.9 - Hypothyroidism, unspecified SNOMED: 85643526 Status: unchanged Assessment/Plan: vent abx wean pressor cbc bmp am tranfuse prn neuro eval ltach eval Subjective Constitutional: Reports: weakness Allergies: Coded Allergies: NO KNOWN DRUG ALLERGIES (Verified Allergy, Unknown, 09/11/16) All Systems: reviewed and negative except above Subjective trach vent altered in icu Objective Last 24 Hour Vital Signs Date Time Temp Pulse Resp B/P (MAP) Pulse Ox O2 Delivery O2 Flow Rate FiO2 07/01/19 12:30 126/64 07/01/19 12:15 97.9 73 16 123/59 (80) 100 07/01/19 12:00 Mechanical Ventilator 07/01/19 12:00 115/51 07/01/19 12:00 76 17 115/51 (72) 99 07/01/19 12:00 30 07/01/19 12:00 66 07/01/19 11:45 76 17 130/65 (86) 99 07/01/19 11:30 119/57 07/01/19 11:30 70 17 119/57 (77) 100 07/01/19 11:23 72 16 35 07/01/19 11:15 87/40 07/01/19 11:15 63 16 87/40 (56) 99 07/01/19 11:00 96/47 07/01/19 11:00 69 18 96/47 (63) 100 07/01/19 10:45 64 16 108/52 (70) 100 07/01/19 10:45 108/52 07/01/19 10:30 68 17 103/46 (65) 100 07/01/19 10:30 103/46 07/01/19 10:15 64 16 98/45 (62) 100 07/01/19 10:15 98/45 07/01/19 10:10 61 16 77/37 (50) 99 07/01/19 10:10 77/37 07/01/19 10:05 63 16 90/40 (57) 100 07/01/19 10:00 70/32 07/01/19 10:00 63 16 70/32 (45) 99 07/01/19 09:45 71 17 90/43 (59) 99 07/01/19 09:30 79 16 106/52 (70) 98 07/01/19 09:15 75 17 115/50 (71) 98 07/01/19 09:15 115/50 07/01/19 09:00 70 16 35 07/01/19 09:00 108/52 07/01/19 09:00 75 16 108/52 (70) 100 07/01/19 08:45 73 17 122/65 (84) 100 07/01/19 08:45 122/65 07/01/19 08:30 67 16 129/65 (86) 100 07/01/19 08:30 129/65 07/01/19 08:00 30 07/01/19 08:00 99.1 66 17 129/65 (86) 100 07/01/19 08:00 129/65 07/01/19 08:00 62 07/01/19 08:00 Mechanical Ventilator 07/01/19 07:30 60 16 100/52 (68) 100 07/01/19 07:20 59 16 35 07/01/19 07:00 122/57 07/01/19 07:00 67 16 122/57 (78) 100 07/01/19 06:00 77 16 119/67 (84) 100 07/01/19 06:00 119/67 07/01/19 05:30 76 17 35 07/01/19 05:30 80 16 122/64 (83) 99 07/01/19 05:00 121/61 07/01/19 05:00 82 22 121/61 (81) 07/01/19 04:30 85 16 107/49 (68) 99 07/01/19 04:00 99.7 81 17 108/52 (70) 100 07/01/19 04:00 30 07/01/19 04:00 Mechanical Ventilator 07/01/19 03:30 72 18 102/50 (67) 99 07/01/19 03:11 73 07/01/19 03:10 70 16 35 07/01/19 03:00 76 17 110/51 (70) 99 07/01/19 02:30 71 18 103/48 (66) 99 07/01/19 02:00 72 16 106/47 (66) 99 07/01/19 02:00 106/47 07/01/19 01:30 73 15 98/45 (62) 99 07/01/19 01:00 73 15 97/46 (63) 99 07/01/19 01:00 84 24 35 07/01/19 01:00 99/54 07/01/19 00:52 99/54 07/01/19 00:30 69 16 102/46 (64) 07/01/19 00:00 Mechanical Ventilator 07/01/19 00:00 98.0 70 17 108/51 (70) 07/01/19 00:00 108/51 07/01/19 00:00 30 07/01/19 00:00 68 06/30/19 23:30 68 16 96/47 (63) 06/30/19 23:12 81 24 35 06/30/19 23:00 94/43 06/30/19 23:00 67 16 94/43 (60) 06/30/19 22:30 75 17 94/47 (63) 06/30/19 22:15 78 16 103/49 (67) 06/30/19 22:00 105/44 06/30/19 22:00 74 18 105/44 (64) 06/30/19 21:45 77 16 105/57 (73) 06/30/19 21:30 77 20 108/39 (62) 06/30/19 21:15 77 18 95/37 (56) 06/30/19 21:00 81 18 105/50 (68) 06/30/19 21:00 105/50 06/30/19 21:00 84 21 35 06/30/19 20:45 79 18 92/54 (67) 06/30/19 20:30 81 16 94/36 (55) 06/30/19 20:15 81 17 94/66 (75) 98 06/30/19 20:00 Mechanical Ventilator 06/30/19 20:00 95/52 06/30/19 20:00 30 06/30/19 20:00 98.4 80 18 95/52 (66) 99 06/30/19 20:00 82 06/30/19 19:50 98.4 06/30/19 19:45 81 21 90/60 (70) 99 06/30/19 19:30 83 18 114/61 (78) 99 06/30/19 19:00 84 17 121/64 (83) 98 06/30/19 19:00 121/64 06/30/19 19:00 81 22 35 06/30/19 18:45 100.4 87 20 121/64 (83) 99 06/30/19 18:30 86 17 119/50 (73) 97 06/30/19 18:15 86 18 128/58 (81) 98 06/30/19 18:00 84 14 127/56 (79) 98 06/30/19 18:00 128/58 06/30/19 17:27 79 21 35 06/30/19 17:00 76 16 126/64 (84) 100 06/30/19 17:00 126/64 06/30/19 16:45 73 17 125/57 (79) 100 06/30/19 16:30 71 16 127/60 (82) 100 06/30/19 16:15 64 16 127/60 (82) 100 06/30/19 16:00 99.6 65 16 106/51 (69) 100 06/30/19 16:00 99/47 06/30/19 16:00 35 06/30/19 16:00 Mechanical Ventilator 06/30/19 15:45 68 16 102/49 (66) 99 06/30/19 15:33 74 06/30/19 15:30 73 17 131/62 (85) 99 06/30/19 15:15 75 17 129/74 (92) 100 06/30/19 15:00 129/74 06/30/19 15:00 78 15 137/60 (85) 99 06/30/19 14:54 79 19 35 06/30/19 14:45 79 17 141/70 (93) 100 06/30/19 14:30 78 18 141/61 (87) 99 06/30/19 14:15 77 17 129/61 (83) 99 06/30/19 14:00 77 17 131/87 (102) 100 06/30/19 14:00 129/61 06/30/19 13:45 74 17 126/65 (85) 100 06/30/19 13:30 77 16 106/56 (73) 99 06/30/19 13:15 77 16 117/57 (77) 99 06/30/19 13:00 122/67 06/30/19 13:00 77 15 122/67 (85) 99 06/30/19 12:58 75 16 35 Intake and Output 06/30/19 07/01/19 19:00 07:00 Intake Total 1842.5 ml 1355 ml Output Total 1250 ml 1490 ml Balance 592.5 ml -135 ml IV Total 1137.5 ml 835 ml Tube Feeding 585 ml 520 ml Other 120 ml Output Urine Total 1250 ml 1490 ml Laboratory Tests 06/30/19 13:40: Urine Color Pale yellow, Urine Appearance Clear, Urine pH 7, Urine Specific [place] 1.005, Urine Protein 1+H, Urine Glucose (UA) Negative, Urine Ketones Negative, Urine Blood 3+H, Urine Nitrite Negative, Urine Bilirubin Negative, Urine Urobilinogen Normal, Urine Leukocyte Esterase 3+H, Urine RBC 10-15H, Urine WBC TntcH, Urine Squamous Epithelial Cells Occasional, Urine Bacteria ManyH 07/01/19 05:20: White Blood Count 6.3#, Red Blood Count 2.83L, Hemoglobin 7.9L, Hematocrit 24.3L , Mean Corpuscular Volume 86, Mean Corpuscular Hemoglobin 28.0, Mean Corpuscular Hemoglobin Concent 32.6, Red Cell Distribution Width 16.0H, Platelet Count 343, Mean Platelet Volume 7.6, Neutrophils (%) (Auto) , Lymphocytes (%) (Auto) , Monocytes (%) (Auto) , Eosinophils (%) (Auto) , Basophils (%) (Auto) , Sodium Level 142, Potassium Level 4.2, Chloride Level 110H, Carbon Dioxide Level 25, Anion Gap 7, Blood Urea Nitrogen 19H, Creatinine 1.4H, Estimat Glomerular Filtration Rate 50.1, Glucose Level 129#H, Uric Acid 4.5, Calcium Level 8.3L, Phosphorus Level 2.6, Magnesium Level 1.8, Total Bilirubin 0.2, Aspartate Amino Transf (AST/SGOT) 18, Alanine Aminotransferase ( ALT/SGPT) 30, Alkaline Phosphatase 180H, C-Reactive Protein, Quantitative 13.9H , Pro-B-Type Natriuretic Peptide 8413H, Total Protein 5.7L, Albumin 2.0L, Globulin 3.7, Albumin/Globulin Ratio 0.5L, Phenytoin (Dilantin) Level 16.2, Phenobarbital Level 17.5 07/01/19 05:45: Arterial Blood pH 7.447, Arterial Blood Partial Pressure CO2 33.1L, Arterial Blood Partial Pressure O2 128.5H, Arterial Blood HCO3 22.3, Arterial Blood Oxygen Saturation 97.9, Arterial Blood Base Excess -1.3, Ger Test Positive Height (Feet): 5 Height (Inches): 8.00 Weight (Pounds): 198 General Appearance: lethargic EENT: normal ENT inspection Neck: normal alignment Cardiovascular: normal peripheral pulses, normal rate, regular rhythm Respiratory/Chest: chest wall non-tender, lungs clear, normal breath sounds Abdomen: normal bowel sounds, non tender, soft Extremities: normal inspection Edema: no edema noted Arm (L), no edema noted Arm (R), no edema noted Leg (L), no edema noted Leg (R), no edema noted Pedal (L), no edema noted Pedal (R), no edema noted Generalized Neurologic: motor weakness Skin: normal pigmentation, warm/dry Gato Viveros DO Jul 01, 2019 12:48
--- NOTE | 2019-07-01 13:00 | NUR ---
NURSE NOTES: Patient was turned and repositioned. Patient kept clean and dry. Patient seen by Dr. Lai. no seizure activity during this shift.
--- NOTE | 2019-07-01 13:07 | Nephrology Progress Note ---
Assessment/Plan Problem List: (1) Septic shock (2) Hypothyroidism (3) Upper GI bleed (4) Respiratory failure, [id number] (5) Anemia Assessment Sepsis Shock on pressors GI Bleed Low Na and high K UTI HypoThyroidism Tracheostomy dependence Respiratory failure, [id number] Alzheimer's Feeding by G-tube Plan monitor dilantin and phenobarb level Albumin bolus as Cr rising consider transfusion as needed On Midodrine On GT feeding fluid challenge as needed adjust IV fluids transfuse as needed Monitor lytes and renal parametrs urine studies per orders Subjective ROS Limited/Unobtainable: Yes Objective Objective Last 24 Hour Vital Signs Date Time Temp Pulse Resp B/P (MAP) Pulse Ox O2 Delivery O2 Flow Rate FiO2 07/01/19 12:45 68 17 90/46 (61) 99 07/01/19 12:30 126/64 07/01/19 12:15 97.9 73 16 123/59 (80) 100 07/01/19 12:00 Mechanical Ventilator 07/01/19 12:00 115/51 07/01/19 12:00 76 17 115/51 (72) 99 07/01/19 12:00 30 07/01/19 12:00 66 07/01/19 11:45 76 17 130/65 (86) 99 07/01/19 11:30 119/57 07/01/19 11:30 70 17 119/57 (77) 100 07/01/19 11:23 72 16 35 07/01/19 11:15 87/40 07/01/19 11:15 63 16 87/40 (56) 99 07/01/19 11:00 96/47 07/01/19 11:00 69 18 96/47 (63) 100 07/01/19 10:45 64 16 108/52 (70) 100 07/01/19 10:45 108/52 07/01/19 10:30 68 17 103/46 (65) 100 07/01/19 10:30 103/46 07/01/19 10:15 64 16 98/45 (62) 100 07/01/19 10:15 98/45 07/01/19 10:10 61 16 77/37 (50) 99 07/01/19 10:10 77/37 07/01/19 10:05 63 16 90/40 (57) 100 07/01/19 10:00 70/32 07/01/19 10:00 63 16 70/32 (45) 99 07/01/19 09:45 71 17 90/43 (59) 99 07/01/19 09:30 79 16 106/52 (70) 98 07/01/19 09:15 75 17 115/50 (71) 98 07/01/19 09:15 115/50 07/01/19 09:00 70 16 35 07/01/19 09:00 108/52 07/01/19 09:00 75 16 108/52 (70) 100 07/01/19 08:45 73 17 122/65 (84) 100 07/01/19 08:45 122/65 07/01/19 08:30 67 16 129/65 (86) 100 07/01/19 08:30 129/65 07/01/19 08:00 30 07/01/19 08:00 99.1 66 17 129/65 (86) 100 07/01/19 08:00 129/65 07/01/19 08:00 62 07/01/19 08:00 Mechanical Ventilator 07/01/19 07:30 60 16 100/52 (68) 100 07/01/19 07:20 59 16 35 07/01/19 07:00 122/57 07/01/19 07:00 67 16 122/57 (78) 100 07/01/19 06:00 77 16 119/67 (84) 100 07/01/19 06:00 119/67 07/01/19 05:30 76 17 35 07/01/19 05:30 80 16 122/64 (83) 99 07/01/19 05:00 121/61 07/01/19 05:00 82 22 121/61 (81) 07/01/19 04:30 85 16 107/49 (68) 99 07/01/19 04:00 99.7 81 17 108/52 (70) 100 07/01/19 04:00 30 07/01/19 04:00 Mechanical Ventilator 07/01/19 03:30 72 18 102/50 (67) 99 07/01/19 03:11 73 07/01/19 03:10 70 16 35 07/01/19 03:00 76 17 110/51 (70) 99 07/01/19 02:30 71 18 103/48 (66) 99 07/01/19 02:00 72 16 106/47 (66) 99 07/01/19 02:00 106/47 07/01/19 01:30 73 15 98/45 (62) 99 07/01/19 01:00 73 15 97/46 (63) 99 07/01/19 01:00 84 24 35 07/01/19 01:00 99/54 07/01/19 00:52 99/54 07/01/19 00:30 69 16 102/46 (64) 07/01/19 00:00 Mechanical Ventilator 07/01/19 00:00 98.0 70 17 108/51 (70) 07/01/19 00:00 108/51 07/01/19 00:00 30 07/01/19 00:00 68 06/30/19 23:30 68 16 96/47 (63) 06/30/19 23:12 81 24 35 06/30/19 23:00 94/43 06/30/19 23:00 67 16 94/43 (60) 06/30/19 22:30 75 17 94/47 (63) 06/30/19 22:15 78 16 103/49 (67) 06/30/19 22:00 105/44 06/30/19 22:00 74 18 105/44 (64) 06/30/19 21:45 77 16 105/57 (73) 06/30/19 21:30 77 20 108/39 (62) 06/30/19 21:15 77 18 95/37 (56) 06/30/19 21:00 81 18 105/50 (68) 06/30/19 21:00 105/50 06/30/19 21:00 84 21 35 06/30/19 20:45 79 18 92/54 (67) 06/30/19 20:30 81 16 94/36 (55) 06/30/19 20:15 81 17 94/66 (75) 98 06/30/19 20:00 Mechanical Ventilator 06/30/19 20:00 95/52 06/30/19 20:00 30 06/30/19 20:00 98.4 80 18 95/52 (66) 99 06/30/19 20:00 82 06/30/19 19:50 98.4 06/30/19 19:45 81 21 90/60 (70) 99 06/30/19 19:30 83 18 114/61 (78) 99 06/30/19 19:00 84 17 121/64 (83) 98 06/30/19 19:00 121/64 06/30/19 19:00 81 22 35 06/30/19 18:45 100.4 87 20 121/64 (83) 99 06/30/19 18:30 86 17 119/50 (73) 97 06/30/19 18:15 86 18 128/58 (81) 98 06/30/19 18:00 84 14 127/56 (79) 98 06/30/19 18:00 128/58 06/30/19 17:27 79 21 35 06/30/19 17:00 76 16 126/64 (84) 100 06/30/19 17:00 126/64 06/30/19 16:45 73 17 125/57 (79) 100 06/30/19 16:30 71 16 127/60 (82) 100 06/30/19 16:15 64 16 127/60 (82) 100 06/30/19 16:00 99.6 65 16 106/51 (69) 100 06/30/19 16:00 99/47 06/30/19 16:00 35 06/30/19 16:00 Mechanical Ventilator 06/30/19 15:45 68 16 102/49 (66) 99 06/30/19 15:33 74 06/30/19 15:30 73 17 131/62 (85) 99 06/30/19 15:15 75 17 129/74 (92) 100 06/30/19 15:00 129/74 06/30/19 15:00 78 15 137/60 (85) 99 06/30/19 14:54 79 19 35 06/30/19 14:45 79 17 141/70 (93) 100 06/30/19 14:30 78 18 141/61 (87) 99 06/30/19 14:15 77 17 129/61 (83) 99 06/30/19 14:00 77 17 131/87 (102) 100 06/30/19 14:00 129/61 06/30/19 13:45 74 17 126/65 (85) 100 06/30/19 13:30 77 16 106/56 (73) 99 06/30/19 13:15 77 16 117/57 (77) 99 Intake and Output 06/30/19 07/01/19 19:00 07:00 Intake Total 1842.5 ml 1355 ml Output Total 1250 ml 1490 ml Balance 592.5 ml -135 ml IV Total 1137.5 ml 835 ml Tube Feeding 585 ml 520 ml Other 120 ml Output Urine Total 1250 ml 1490 ml Laboratory Tests 06/30/19 13:40: Urine Color Pale yellow, Urine Appearance Clear, Urine pH 7, Urine Specific [place] 1.005, Urine Protein 1+H, Urine Glucose (UA) Negative, Urine Ketones Negative, Urine Blood 3+H, Urine Nitrite Negative, Urine Bilirubin Negative, Urine Urobilinogen Normal, Urine Leukocyte Esterase 3+H, Urine RBC 10-15H, Urine WBC TntcH, Urine Squamous Epithelial Cells Occasional, Urine Bacteria ManyH 07/01/19 05:20: White Blood Count 6.3#, Red Blood Count 2.83L, Hemoglobin 7.9L, Hematocrit 24.3L , Mean Corpuscular Volume 86, Mean Corpuscular Hemoglobin 28.0, Mean Corpuscular Hemoglobin Concent 32.6, Red Cell Distribution Width 16.0H, Platelet Count 343, Mean Platelet Volume 7.6, Neutrophils (%) (Auto) , Lymphocytes (%) (Auto) , Monocytes (%) (Auto) , Eosinophils (%) (Auto) , Basophils (%) (Auto) , Sodium Level 142, Potassium Level 4.2, Chloride Level 110H, Carbon Dioxide Level 25, Anion Gap 7, Blood Urea Nitrogen 19H, Creatinine 1.4H, Estimat Glomerular Filtration Rate 50.1, Glucose Level 129#H, Uric Acid 4.5, Calcium Level 8.3L, Phosphorus Level 2.6, Magnesium Level 1.8, Total Bilirubin 0.2, Aspartate Amino Transf (AST/SGOT) 18, Alanine Aminotransferase ( ALT/SGPT) 30, Alkaline Phosphatase 180H, C-Reactive Protein, Quantitative 13.9H , Pro-B-Type Natriuretic Peptide 8413H, Total Protein 5.7L, Albumin 2.0L, Globulin 3.7, Albumin/Globulin Ratio 0.5L, Phenytoin (Dilantin) Level 16.2, Phenobarbital Level 17.5 07/01/19 05:45: Arterial Blood pH 7.447, Arterial Blood Partial Pressure CO2 33.1L, Arterial Blood Partial Pressure O2 128.5H, Arterial Blood HCO3 22.3, Arterial Blood Oxygen Saturation 97.9, Arterial Blood Base Excess -1.3, Ger Test Positive Height (Feet): 5 Height (Inches): 8.00 Weight (Pounds): 198 General Appearance: no apparent distress EENT: other - vented Cardiovascular: normal rate Respiratory/Chest: decreased breath sounds Abdomen: distended Objective no change Sav Salvador MD Jul 01, 2019 13:07
--- NOTE | 2019-07-01 13:20 | GI Progress Note ---
Assessment/Plan Problems: (1) Severe sepsis ICD Codes: A41.9 - Sepsis, unspecified organism; R65.20 - Severe sepsis without septic shock SNOMED: 23437531 (2) GT SITE LEAKING (3) Alzheimer's dementia ICD Codes: G30.9 - Alzheimer's disease, unspecified SNOMED: 39507946 (4) Upper GI bleed ICD Codes: K92.2 - Upper gastrointestinal hemorrhage SNOMED: 39899974 (5) Severe erosive esophagitis (6) Malfunction of gastrostomy tube ICD Codes: K94.23 - Gastrostomy malfunction SNOMED: 920663464 (7) Anemia ICD Codes: D64.9 - Anemia, unspecified SNOMED: 949589713 Status: unchanged Status Narrative Discussed with Dr. Wilson. Assessment/Plan s/p EGD/colonoscopy patient now in ICU for hypotension on pressors GTFs per RD GT changed at the bedside to 20 Fr. protonix 40 mg Q12 Carafate fu CBC, stable H&H The patient was seen and examined at bedside and all new and available data was reviewed in the patients chart. I agree with the above findings, impression and plan. (Patient seen earlier today. Signature stamp does not reflect patient encounter time.). - Vitaliy Wilson MD Subjective Subjective limited Objective Last 24 Hour Vital Signs Date Time Temp Pulse Resp B/P (MAP) Pulse Ox O2 Delivery O2 Flow Rate FiO2 07/01/19 13:00 98/52 07/01/19 13:00 70 17 98/52 (67) 99 07/01/19 12:45 68 17 90/46 (61) 99 07/01/19 12:30 126/64 07/01/19 12:15 97.9 73 16 123/59 (80) 100 07/01/19 12:00 Mechanical Ventilator 07/01/19 12:00 115/51 07/01/19 12:00 76 17 115/51 (72) 99 07/01/19 12:00 30 07/01/19 12:00 66 07/01/19 11:45 76 17 130/65 (86) 99 07/01/19 11:30 119/57 07/01/19 11:30 70 17 119/57 (77) 100 07/01/19 11:23 72 16 35 07/01/19 11:15 87/40 07/01/19 11:15 63 16 87/40 (56) 99 07/01/19 11:00 96/47 07/01/19 11:00 69 18 96/47 (63) 100 07/01/19 10:45 64 16 108/52 (70) 100 07/01/19 10:45 108/52 07/01/19 10:30 68 17 103/46 (65) 100 07/01/19 10:30 103/46 07/01/19 10:15 64 16 98/45 (62) 100 07/01/19 10:15 98/45 07/01/19 10:10 61 16 77/37 (50) 99 07/01/19 10:10 77/37 07/01/19 10:05 63 16 90/40 (57) 100 07/01/19 10:00 70/32 07/01/19 10:00 63 16 70/32 (45) 99 07/01/19 09:45 71 17 90/43 (59) 99 07/01/19 09:30 79 16 106/52 (70) 98 07/01/19 09:15 75 17 115/50 (71) 98 07/01/19 09:15 115/50 07/01/19 09:00 70 16 35 07/01/19 09:00 108/52 07/01/19 09:00 75 16 108/52 (70) 100 07/01/19 08:45 73 17 122/65 (84) 100 07/01/19 08:45 122/65 07/01/19 08:30 67 16 129/65 (86) 100 07/01/19 08:30 129/65 07/01/19 08:00 30 07/01/19 08:00 99.1 66 17 129/65 (86) 100 07/01/19 08:00 129/65 07/01/19 08:00 62 07/01/19 08:00 Mechanical Ventilator 07/01/19 07:30 60 16 100/52 (68) 100 07/01/19 07:20 59 16 35 07/01/19 07:00 122/57 07/01/19 07:00 67 16 122/57 (78) 100 07/01/19 06:00 77 16 119/67 (84) 100 07/01/19 06:00 119/67 07/01/19 05:30 76 17 35 07/01/19 05:30 80 16 122/64 (83) 99 07/01/19 05:00 121/61 07/01/19 05:00 82 22 121/61 (81) 07/01/19 04:30 85 16 107/49 (68) 99 07/01/19 04:00 99.7 81 17 108/52 (70) 100 07/01/19 04:00 30 07/01/19 04:00 Mechanical Ventilator 07/01/19 03:30 72 18 102/50 (67) 99 07/01/19 03:11 73 07/01/19 03:10 70 16 35 07/01/19 03:00 76 17 110/51 (70) 99 07/01/19 02:30 71 18 103/48 (66) 99 07/01/19 02:00 72 16 106/47 (66) 99 07/01/19 02:00 106/47 07/01/19 01:30 73 15 98/45 (62) 99 07/01/19 01:00 73 15 97/46 (63) 99 07/01/19 01:00 84 24 35 07/01/19 01:00 99/54 07/01/19 00:52 99/54 07/01/19 00:30 69 16 102/46 (64) 07/01/19 00:00 Mechanical Ventilator 07/01/19 00:00 98.0 70 17 108/51 (70) 07/01/19 00:00 108/51 07/01/19 00:00 30 07/01/19 00:00 68 06/30/19 23:30 68 16 96/47 (63) 06/30/19 23:12 81 24 35 06/30/19 23:00 94/43 06/30/19 23:00 67 16 94/43 (60) 06/30/19 22:30 75 17 94/47 (63) 06/30/19 22:15 78 16 103/49 (67) 06/30/19 22:00 105/44 06/30/19 22:00 74 18 105/44 (64) 06/30/19 21:45 77 16 105/57 (73) 06/30/19 21:30 77 20 108/39 (62) 06/30/19 21:15 77 18 95/37 (56) 06/30/19 21:00 81 18 105/50 (68) 06/30/19 21:00 105/50 06/30/19 21:00 84 21 35 06/30/19 20:45 79 18 92/54 (67) 06/30/19 20:30 81 16 94/36 (55) 06/30/19 20:15 81 17 94/66 (75) 98 06/30/19 20:00 Mechanical Ventilator 06/30/19 20:00 95/52 06/30/19 20:00 30 06/30/19 20:00 98.4 80 18 95/52 (66) 99 06/30/19 20:00 82 06/30/19 19:50 98.4 06/30/19 19:45 81 21 90/60 (70) 99 06/30/19 19:30 83 18 114/61 (78) 99 06/30/19 19:00 84 17 121/64 (83) 98 06/30/19 19:00 121/64 06/30/19 19:00 81 22 35 06/30/19 18:45 100.4 87 20 121/64 (83) 99 06/30/19 18:30 86 17 119/50 (73) 97 06/30/19 18:15 86 18 128/58 (81) 98 06/30/19 18:00 84 14 127/56 (79) 98 06/30/19 18:00 128/58 06/30/19 17:27 79 21 35 06/30/19 17:00 76 16 126/64 (84) 100 06/30/19 17:00 126/64 06/30/19 16:45 73 17 125/57 (79) 100 06/30/19 16:30 71 16 127/60 (82) 100 06/30/19 16:15 64 16 127/60 (82) 100 06/30/19 16:00 99.6 65 16 106/51 (69) 100 06/30/19 16:00 99/47 06/30/19 16:00 35 06/30/19 16:00 Mechanical Ventilator 06/30/19 15:45 68 16 102/49 (66) 99 06/30/19 15:33 74 06/30/19 15:30 73 17 131/62 (85) 99 06/30/19 15:15 75 17 129/74 (92) 100 06/30/19 15:00 129/74 06/30/19 15:00 78 15 137/60 (85) 99 06/30/19 14:54 79 19 35 06/30/19 14:45 79 17 141/70 (93) 100 06/30/19 14:30 78 18 141/61 (87) 99 06/30/19 14:15 77 17 129/61 (83) 99 06/30/19 14:00 77 17 131/87 (102) 100 06/30/19 14:00 129/61 06/30/19 13:45 74 17 126/65 (85) 100 06/30/19 13:30 77 16 106/56 (73) 99 Intake and Output 06/30/19 07/01/19 19:00 07:00 Intake Total 1842.5 ml 1355 ml Output Total 1250 ml 1490 ml Balance 592.5 ml -135 ml IV Total 1137.5 ml 835 ml Tube Feeding 585 ml 520 ml Other 120 ml Output Urine Total 1250 ml 1490 ml Laboratory Tests Test 06/30/19 13:40 07/01/19 05:20 07/01/19 05:45 Urine Color Pale yellow Urine Appearance Clear Urine pH 7 (4.5-8.0) Urine Specific [place] 1.005 (1.005-1.035) Urine Protein 1+ (NEGATIVE) H Urine Glucose (UA) Negative (NEGATIVE) Urine Ketones Negative (NEGATIVE) Urine Blood 3+ (NEGATIVE) H Urine Nitrite Negative (NEGATIVE) Urine Bilirubin Negative (NEGATIVE) Urine Urobilinogen Normal MG/DL (0.0-1.0) Urine Leukocyte Esterase 3+ (NEGATIVE) H Urine RBC 10-15 /HPF (0 - 0) H Urine WBC Tntc /HPF (0 - 0) H Urine Squamous Epithelial Cells Occasional /LPF Urine Bacteria Many /HPF (NONE) H White Blood Count 6.3 K/UL (4.8-10.8) # Red Blood Count 2.83 M/UL (4.70-6.10) L Hemoglobin 7.9 G/DL (14.2-18.0) L Hematocrit 24.3 % (42.0-52.0) L Mean Corpuscular Volume 86 FL (80-99) Mean Corpuscular Hemoglobin 28.0 PG (27.0-31.0) Mean Corpuscular Hemoglobin Concent 32.6 G/DL (32.0-36.0) Red Cell Distribution Width 16.0 % (11.6-14.8) H Platelet Count 343 K/UL (150-450) Mean Platelet Volume 7.6 FL (6.5-10.1) Neutrophils (%) (Auto) % (45.0-75.0) Lymphocytes (%) (Auto) % (20.0-45.0) Monocytes (%) (Auto) % (1.0-10.0) Eosinophils (%) (Auto) % (0.0-3.0) Basophils (%) (Auto) % (0.0-2.0) Sodium Level 142 MMOL/L (136-145) Potassium Level 4.2 MMOL/L (3.5-5.1) Chloride Level 110 MMOL/L (98-107) H Carbon Dioxide Level 25 MMOL/L (21-32) Anion Gap 7 mmol/L (5-15) Blood Urea Nitrogen 19 mg/dL (7-18) H Creatinine 1.4 MG/DL (0.55-1.30) H Estimat Glomerular Filtration Rate 50.1 mL/min (>60) Glucose Level 129 MG/DL (74-106) #H Uric Acid 4.5 MG/DL (2.6-7.2) Calcium Level 8.3 MG/DL (8.5-10.1) L Phosphorus Level 2.6 MG/DL (2.5-4.9) Magnesium Level 1.8 MG/DL (1.8-2.4) Total Bilirubin 0.2 MG/DL (0.2-1.0) Aspartate Amino Transf (AST/SGOT) 18 U/L (15-37) Alanine Aminotransferase (ALT/SGPT) 30 U/L (12-78) Alkaline Phosphatase 180 U/L (46-116) H C-Reactive Protein, Quantitative 13.9 mg/dL (0.00-0.90) H Pro-B-Type Natriuretic Peptide 8413 pg/mL (0-125) H Total Protein 5.7 G/DL (6.4-8.2) L Albumin 2.0 G/DL (3.4-5.0) L Globulin 3.7 g/dL Albumin/Globulin Ratio 0.5 (1.0-2.7) L Phenytoin (Dilantin) Level 16.2 ug/mL (10-20) Phenobarbital Level 17.5 ug/mL (15-40) Arterial Blood pH 7.447 (7.350-7.450) Arterial Blood Partial Pressure CO2 33.1 mmHg (35.0-45.0) L Arterial Blood Partial Pressure O2 128.5 mmHg (75.0-100.0) H Arterial Blood HCO3 22.3 mmol/L (22.0-26.0) Arterial Blood Oxygen Saturation 97.9 % (95-100) Arterial Blood Base Excess -1.3 (-2-2) Ger Test Positive Microbiology Date/Time Source Procedure Growth Status 06/30/19 13:40 Urine,Clean Catch Urine Culture - Preliminary Resulted Height (Feet): 5 Height (Inches): 8.00 Weight (Pounds): 198 General Appearance: no apparent distress Cardiovascular: normal rate Respiratory/Chest: normal breath sounds, no respiratory distress Abdominal Exam: normal bowel sounds, non tender, soft, GT site Extremities: non-tender Emanuel Quesada [employer] Jul 01, 2019 13:20
--- NOTE | 2019-07-01 13:30 | NUR ---
NURSE NOTES: Tube feeding was stopped at 1300 for Dilantin. Medication was changed and rescheduled, Tube feeding resumed at 65ml/hr. HOB kept elevated.
[2019-07-01] MEDS: Vancomycin 1gm/D5W 275ml IVPB SCH ×2 (14:39)
[2019-07-01] MEDS: Midodrine 10mg tab GT SCH ×2 (14:39→21:54)
[2019-07-01] MEDS: PHENobarbital Elixir 30mg/7.5ml NG SCH ×2 (14:39→21:54)
--- NOTE | 2019-07-01 16:29 | Hematology/Onc Progress Note ---
Assessment/Plan Assessment/Plan ASSESSMENT/RECOMMENDATIONS # Anemia of chronic disease due to underlying chronic medical issues, multifactorial --> Anemia w/u has been reviewed and c/w acd ferritin 635, tibc 160 --> No evidence of hemolysis is noted, peripheral smear has been reviewed. --> Hgb goal >7. Transfuse prn. --> Epogen or iron at this time is not particularly indicated --> unable to obtain consent, with no family --> r/o hemolysis as well --> hgb 7.5-->8-->8.7-->8.2-->7.8-->8-->7.4-->8.8-->8.3-->8->9.5->8.2 --> 06/26: EGD/COLO with diverticulosis --> spep is negative for bands # Leukocytosis. Likely related to underlying infection versus reactive process. patient with septic shock on admission --> Peripheral has been reviewed--> rouleaux formation on smear --> Medications have been reviewed --> Imaging has been reviewed. CXR shows Suboptimal positioning. No interval consolidation, overt edema or other acute cardiopulmonary findings. --> urine culture with ++uti on cultures provedencia --> Has been started on abx, empiric treatment (ertap/vanc)--> Levo--> vanc/ cefepime --> wbc is 36-->26k-->9k-->11.6-->6.3 # Thrombocytopenia decreased since admission --> plt count 190-->123k-->101k-->95k-->93k-->120k-->249k --> abx for id # Coagulopathy with elev ptt --> may be due to vit k deficiency, less likely inhibitor # Septic shock poa --> on abx per id --> initially on pressors, now off # Upper GI vomiting bleed in prior admission --> currently appears to have resolved # Trach and PEG --> chronic # Hyperkalemia --> as per renal # Dvt ppx heparin sq (ON HOLD for potential bleed) The timing of this note does not necessarily reflect the time of the patient was seen. Greatly appreciate consultation. Subjective Constitutional: Denies: no symptoms, chills, fever, malaise, weakness, other HEENT: Denies: no symptoms, eye pain, blurred vision, tearing, double vision, ear pain, ear discharge, nose pain, nose congestion, throat pain, throat swelling, mouth pain, mouth swelling, other Cardiovascular: Denies: no symptoms, chest pain, edema, irregular heart rate, lightheadedness, palpitations, syncope, other Respiratory: Denies: no symptoms, cough, shortness of breath, SOB with excertion, SOB at rest, sputum, wheezing, other Endocrine: Denies: no symptoms, excessive sweating, flushing, intolerance to cold, intolerance to heat, increased hunger, increased thirst, increased urine, unexplained weight gain, unexplained weight loss, other Allergies: Coded Allergies: NO KNOWN DRUG ALLERGIES (Verified Allergy, Unknown, 09/11/16) Subjective 06/17: blood transfusion completed, on low dose pressors, no bleeding noted 06/19: dw rn, no major events, cbc reviewed, tube feeds ongoing 06/22: no major changes, no bleeding or night sweats, on abx, in sariah 06/23: no f/c, no bleeding, labs noted, in sariah, hgb 8, plt 120k 06/24: labs reviewed, no bleeding, no night sweats, no bleeding 06/25: heparin held for potential bleed, gt is clamped, no events, no fc 06/26: for egd today with gi, bleeding noted, requiring prbc transf 06/27: gi procedure was done today and noted for diverticulosis, otherwise cbc stable 06/28: remains stable, being treated for gerd, hgb 8, no bleeding 06/29: no bleeding noted, no chills, no night sweats, no fc 06/30: no bleeding, on pressors, no major changes hgb 8.2 07/01: on pressors, with gt feeds, seen by gi wbc is better Objective Objective Current Medications Medications (Trade) Dose Ordered Sig/Wanda Route PRN Reason Start Time Stop Time Status Last Admin Dose Admin Acetaminophen (Tylenol) 650 mg Q4H PRN GT fever (temp>100.5F) 06/29/19 19:33 07/29/19 19:32 06/30/19 18:54 Cefepime HCl 1 gm/ Dextrose 55 ml @ 110 mls/hr EVERY 12 HOURS IVPB 06/30/19 13:30 07/07/19 13:29 07/01/19 08:42 Chlorhexidine Gluconate (Jasmin-Hex 2%) 1 applic DAILY@2000 TOPIC 06/29/19 20:00 07/20/19 19:59 06/30/19 20:09 Dextrose/Sodium Chloride 1,000 ml @ 50 mls/hr Q20H IV 06/30/19 14:30 07/30/19 14:29 07/01/19 09:46 Lansoprazole (Prevacid) 30 mg BID GT 07/01/19 18:00 07/31/19 17:59 Levothyroxine Sodium (Synthroid) 88 mcg DAILY@0630 GT 06/30/19 06:30 07/20/19 06:29 07/01/19 06:08 Lorazepam (Ativan 2mg/ml 1ml) 2 mg Q4H PRN IVP For Seizures 06/29/19 19:33 07/06/19 19:32 Midodrine (Pro-Amatine) 10 mg EVERY 8 HOURS GT 07/01/19 14:00 07/17/19 12:59 07/01/19 14:39 Norepinephrine Bitartrate 4 mg/ Dextrose 250 ml @ 0 mls/hr Q24H IV 06/29/19 22:30 07/29/19 22:29 07/01/19 00:52 Ondansetron HCl (Zofran) 4 mg Q6H PRN IVP Nausea & Vomiting 06/29/19 19:33 07/29/19 19:32 Phenobarbital (PHENobarbital) 60 mg Q8HR NG 07/01/19 14:00 07/31/19 13:59 07/01/19 14:39 Phenytoin (Dilantin) 300 mg QHS NG 07/02/19 21:00 08/01/19 20:59 Polyethylene Glycol (Miralax) 17 gm DAILYPRN PRN GT Constipation 06/29/19 19:33 07/29/19 19:32 Sucralfate (Carafate) 1 gm EVERY 8 HOURS GT 06/29/19 22:00 07/21/19 08:59 07/01/19 14:39 Vancomycin HCl (Vanco rx to dose) 1 ea DAILY PRN MISC Per rx protocol 06/30/19 12:15 07/30/19 12:14 Vancomycin HCl 1 gm/Dextrose 275 ml @ 183.708 mls/hr Q24H IVPB 07/01/19 15:00 07/06/19 14:59 07/01/19 14:39 Zinc Oxide (Zinc Oxide) 1 applic QHS TOPIC 06/29/19 21:00 07/21/19 08:59 06/30/19 20:11 Last 24 Hour Vital Signs Date Time Temp Pulse Resp B/P (MAP) Pulse Ox O2 Delivery O2 Flow Rate FiO2 07/01/19 15:45 79 17 105/42 (63) 99 07/01/19 15:30 79 17 103/45 (64) 99 07/01/19 15:15 79 18 107/49 (68) 100 07/01/19 15:06 71 16 35 07/01/19 15:00 78 18 99/44 (62) 99 07/01/19 14:45 77 16 98/43 (61) 100 07/01/19 14:30 81 16 105/43 (63) 100 07/01/19 14:30 105/43 07/01/19 14:15 83 16 116/51 (72) 99 07/01/19 14:00 115/44 07/01/19 14:00 81 21 115/44 (67) 99 07/01/19 13:45 86 20 116/47 (70) 99 07/01/19 13:30 79 18 116/47 (70) 100 07/01/19 13:29 87 21 35 07/01/19 13:15 77 16 116/53 (74) 99 07/01/19 13:00 98/52 07/01/19 13:00 70 17 98/52 (67) 99 07/01/19 12:45 68 17 90/46 (61) 99 07/01/19 12:30 126/64 07/01/19 12:15 97.9 73 16 123/59 (80) 100 07/01/19 12:00 Mechanical Ventilator 07/01/19 12:00 115/51 07/01/19 12:00 76 17 115/51 (72) 99 07/01/19 12:00 30 07/01/19 12:00 66 07/01/19 11:45 76 17 130/65 (86) 99 10/22/19 11:30 119/57 07/01/19 11:30 70 17 119/57 (77) 100 07/01/19 11:23 72 16 35 07/01/19 11:15 87/40 07/01/19 11:15 63 16 87/40 (56) 99 07/01/19 11:00 96/47 07/01/19 11:00 69 18 96/47 (63) 100 07/01/19 10:45 64 16 108/52 (70) 100 07/01/19 10:45 108/52 07/01/19 10:30 68 17 103/46 (65) 100 07/01/19 10:30 103/46 07/01/19 10:15 64 16 98/45 (62) 100 07/01/19 10:15 98/45 07/01/19 10:10 61 16 77/37 (50) 99 07/01/19 10:10 77/37 07/01/19 10:05 63 16 90/40 (57) 100 07/01/19 10:00 70/32 07/01/19 10:00 63 16 70/32 (45) 99 07/01/19 09:45 71 17 90/43 (59) 99 07/01/19 09:30 79 16 106/52 (70) 98 07/01/19 09:15 75 17 115/50 (71) 98 07/01/19 09:15 115/50 07/01/19 09:00 70 16 35 07/01/19 09:00 108/52 07/01/19 09:00 75 16 108/52 (70) 100 07/01/19 08:45 73 17 122/65 (84) 100 07/01/19 08:45 122/65 07/01/19 08:30 67 16 129/65 (86) 100 07/01/19 08:30 129/65 07/01/19 08:00 30 07/01/19 08:00 99.1 66 17 129/65 (86) 100 07/01/19 08:00 129/65 07/01/19 08:00 62 07/01/19 08:00 Mechanical Ventilator 07/01/19 07:30 60 16 100/52 (68) 100 07/01/19 07:20 59 16 35 07/01/19 07:00 122/57 07/01/19 07:00 67 16 122/57 (78) 100 07/01/19 06:00 77 16 119/67 (84) 100 07/01/19 06:00 119/67 07/01/19 05:30 76 17 35 07/01/19 05:30 80 16 122/64 (83) 99 07/01/19 05:00 121/61 07/01/19 05:00 82 22 121/61 (81) 07/01/19 04:30 85 16 107/49 (68) 99 07/01/19 04:00 99.7 81 17 108/52 (70) 100 07/01/19 04:00 30 07/01/19 04:00 Mechanical Ventilator 07/01/19 03:30 72 18 102/50 (67) 99 07/01/19 03:11 73 07/01/19 03:10 70 16 35 07/01/19 03:00 76 17 110/51 (70) 99 07/01/19 02:30 71 18 103/48 (66) 99 07/01/19 02:00 72 16 106/47 (66) 99 07/01/19 02:00 106/47 07/01/19 01:30 73 15 98/45 (62) 99 07/01/19 01:00 73 15 97/46 (63) 99 07/01/19 01:00 84 24 35 07/01/19 01:00 99/54 07/01/19 00:52 99/54 07/01/19 00:30 69 16 102/46 (64) 07/01/19 00:00 Mechanical Ventilator 07/01/19 00:00 98.0 70 17 108/51 (70) 07/01/19 00:00 108/51 07/01/19 00:00 30 07/01/19 00:00 68 06/30/19 23:30 68 16 96/47 (63) 06/30/19 23:12 81 24 35 06/30/19 23:00 94/43 06/30/19 23:00 67 16 94/43 (60) 06/30/19 22:30 75 17 94/47 (63) 06/30/19 22:15 78 16 103/49 (67) 06/30/19 22:00 105/44 10/21/19 22:00 74 18 105/44 (64) 06/30/19 21:45 77 16 105/57 (73) 06/30/19 21:30 77 20 108/39 (62) 06/30/19 21:15 77 18 95/37 (56) 06/30/19 21:00 81 18 105/50 (68) 06/30/19 21:00 105/50 06/30/19 21:00 84 21 35 06/30/19 20:45 79 18 92/54 (67) 06/30/19 20:30 81 16 94/36 (55) 06/30/19 20:15 81 17 94/66 (75) 98 06/30/19 20:00 Mechanical Ventilator 06/30/19 20:00 95/52 06/30/19 20:00 30 06/30/19 20:00 98.4 80 18 95/52 (66) 99 06/30/19 20:00 82 06/30/19 19:50 98.4 06/30/19 19:45 81 21 90/60 (70) 99 06/30/19 19:30 83 18 114/61 (78) 99 06/30/19 19:00 84 17 121/64 (83) 98 06/30/19 19:00 121/64 06/30/19 19:00 81 22 35 06/30/19 18:45 100.4 87 20 121/64 (83) 99 06/30/19 18:30 86 17 119/50 (73) 97 06/30/19 18:15 86 18 128/58 (81) 98 06/30/19 18:00 84 14 127/56 (79) 98 06/30/19 18:00 128/58 06/30/19 17:27 79 21 35 06/30/19 17:00 76 16 126/64 (84) 100 06/30/19 17:00 126/64 06/30/19 16:45 73 17 125/57 (79) 100 06/30/19 16:30 71 16 127/60 (82) 100 06/30/19 16:15 64 16 127/60 (82) 100 06/30/19 16:00 99.6 65 16 106/51 (69) 100 06/30/19 16:00 99/47 06/30/19 16:00 35 06/30/19 16:00 Mechanical Ventilator 06/30/19 15:45 68 16 102/49 (66) 99 06/30/19 15:33 74 06/30/19 15:30 73 17 131/62 (85) 99 06/30/19 15:15 75 17 129/74 (92) 100 06/30/19 15:00 129/74 06/30/19 15:00 78 15 137/60 (85) 99 06/30/19 14:54 79 19 35 06/30/19 14:45 79 17 141/70 (93) 100 06/30/19 14:30 78 18 141/61 (87) 99 06/30/19 14:15 77 17 129/61 (83) 99 06/30/19 14:00 77 17 131/87 (102) 100 06/30/19 14:00 129/61 06/30/19 13:45 74 17 126/65 (85) 100 06/30/19 13:30 77 16 106/56 (73) 99 06/30/19 13:15 77 16 117/57 (77) 99 06/30/19 13:00 122/67 06/30/19 13:00 77 15 122/67 (85) 99 06/30/19 12:58 75 16 35 06/30/19 12:45 84 18 130/70 (90) 100 06/30/19 12:30 81 26 137/78 (97) 97 06/30/19 12:15 76 18 127/66 (86) 98 06/30/19 12:12 68 06/30/19 12:08 125/53 06/30/19 12:00 35 06/30/19 12:00 98.9 79 18 125/53 (77) 97 06/30/19 12:00 127/66 06/30/19 12:00 Mechanical Ventilator 06/30/19 11:45 77 23 120/57 (78) 98 06/30/19 11:30 73 20 114/47 (69) 98 06/30/19 11:15 64 15 92/44 (60) 100 06/30/19 11:00 73 15 121/41 (67) 97 06/30/19 11:00 121/41 06/30/19 10:45 78 18 123/106 (112) 97 06/30/19 10:42 78 16 35 06/30/19 10:40 123/106 06/30/19 10:30 72 19 109/93 (98) 98 06/30/19 10:15 62/32 06/30/19 10:15 63 16 62/32 (42) 100 06/30/19 10:00 71 16 111/95 (100) 99 06/30/19 10:00 68/34 06/30/19 09:45 71 25 91/59 (70) 98 06/30/19 09:30 71 17 102/37 (58) 98 06/30/19 09:15 71 19 108/49 (68) 99 06/30/19 09:00 71 15 96/39 (58) 98 06/30/19 09:00 82/36 06/30/19 08:58 72 19 35 06/30/19 08:45 72 18 94/31 (52) 98 06/30/19 08:30 71 17 106/42 (63) 97 06/30/19 08:15 72 18 103/64 (77) 98 06/30/19 08:00 35 06/30/19 08:00 103/64 06/30/19 08:00 Mechanical Ventilator 06/30/19 08:00 99.7 71 15 97/70 (79) 99 06/30/19 07:45 72 18 106/91 (96) 99 06/30/19 07:32 69 06/30/19 07:30 70 19 104/85 (91) 99 06/30/19 07:15 72 21 104/68 (80) 96 06/30/19 07:00 76 18 110/52 (71) 99 06/30/19 07:00 73 17 35 06/30/19 07:00 104/68 06/30/19 06:30 77 16 103/58 (73) 98 06/30/19 06:15 81 17 112/57 (75) 99 06/30/19 06:00 80 19 74/53 (60) 99 06/30/19 06:00 74/53 06/30/19 05:45 77 18 88/55 (66) 98 06/30/19 05:30 80 15 112/74 (87) 99 06/30/19 05:25 71 16 35 06/30/19 05:00 106/45 06/30/19 05:00 79 11 106/45 (65) 98 06/30/19 04:45 73 0 116/47 (70) 100 06/30/19 04:30 80 14 120/55 (76) 98 06/30/19 04:15 80 16 110/47 (68) 100 06/30/19 04:00 98.0 84 16 110/48 (68) 98 06/30/19 04:00 Mechanical Ventilator 06/30/19 04:00 110/48 06/30/19 04:00 35 06/30/19 04:00 77 06/30/19 03:30 64 16 35 06/30/19 03:30 80 16 108/42 (64) 98 06/30/19 03:00 72 16 112/46 (68) 100 06/30/19 03:00 112/46 06/30/19 02:45 71 16 119/46 (70) 100 06/30/19 02:30 71 12 116/44 (68) 100 06/30/19 02:15 74 15 109/46 (67) 100 06/30/19 02:00 73 16 112/53 (72) 100 06/30/19 02:00 112/53 06/30/19 01:45 71 16 87/41 (56) 100 06/30/19 01:30 71 7 101/48 (65) 100 06/30/19 01:13 73 16 35 06/30/19 01:00 71 13 102/49 (66) 100 06/30/19 01:00 102/49 06/30/19 00:30 70 14 98/50 (66) 100 06/30/19 00:00 98.0 70 15 97/41 (59) 100 06/30/19 00:00 35 06/30/19 00:00 100/47 06/30/19 00:00 Mechanical Ventilator 06/30/19 00:00 71 06/29/19 23:45 70 16 105/38 (60) 100 06/29/19 23:30 70 16 121/51 (74) 100 06/29/19 23:30 70 16 121/51 (74) 100 06/29/19 23:15 70 16 114/58 (76) 100 06/29/19 23:00 64 16 140/63 (88) 100 10/20/19 23:00 114/58 06/29/19 22:55 62 16 35 06/29/19 22:45 49 16 127/63 (84) 99 06/29/19 22:35 54/31 06/29/19 22:30 59 16 54/31 (39) 100 06/29/19 22:15 61 16 59/31 (40) 100 06/29/19 22:00 75 14 112/53 (72) 100 06/29/19 21:45 70 16 79/38 (52) 97 06/29/19 21:30 71 16 111/44 (66) 99 06/29/19 21:15 75 16 108/51 (70) 99 06/29/19 21:00 69 16 97/36 (56) 100 06/29/19 20:46 67 16 35 06/29/19 20:45 65 16 94/55 (68) 98 06/29/19 20:30 70 16 96/48 (64) 100 06/29/19 20:15 76 19 120/36 (64) 100 06/29/19 20:00 35 06/29/19 20:00 Mechanical Ventilator 06/29/19 20:00 97.5 72 17 114/57 (76) 100 06/29/19 19:50 66 06/29/19 19:30 65 16 35 06/29/19 17:00 85 18 30 Intake and Output 06/30/19 07/01/19 19:00 07:00 Intake Total 1842.5 ml 1355 ml Output Total 1250 ml 1490 ml Balance 592.5 ml -135 ml IV Total 1137.5 ml 835 ml Tube Feeding 585 ml 520 ml Other 120 ml Output Urine Total 1250 ml 1490 ml Labs Test 06/29/19 03:30 06/29/19 11:27 06/30/19 04:15 06/30/19 13:40 White Blood Count 10.7 K/UL (4.8-10.8) 12.7 K/UL (4.8-10.8) Red Blood Count 3.41 M/UL (4.70-6.10) 2.85 M/UL (4.70-6.10) Hemoglobin 9.5 G/DL (14.2-18.0) 8.2 G/DL (14.2-18.0) Hematocrit 29.9 % (42.0-52.0) 24.6 % (42.0-52.0) Mean Corpuscular Volume 88 FL (80-99) 86 FL (80-99) Mean Corpuscular Hemoglobin 27.8 PG (27.0-31.0) 28.7 PG (27.0-31.0) Mean Corpuscular Hemoglobin Concent 31.7 G/DL (32.0-36.0) 33.2 G/DL (32.0-36.0) Red Cell Distribution Width 16.4 % (11.6-14.8) 16.3 % (11.6-14.8) Platelet Count 389 K/UL (150-450) 337 K/UL (150-450) Mean Platelet Volume 7.3 FL (6.5-10.1) 7.5 FL (6.5-10.1) Neutrophils (%) (Auto) 61.0 % (45.0-75.0) % (45.0-75.0) Lymphocytes (%) (Auto) 20.2 % (20.0-45.0) % (20.0-45.0) Monocytes (%) (Auto) 13.8 % (1.0-10.0) % (1.0-10.0) Eosinophils (%) (Auto) 4.1 % (0.0-3.0) % (0.0-3.0) Basophils (%) (Auto) 0.9 % (0.0-2.0) % (0.0-2.0) Sodium Level 140 MMOL/L (136-145) 136 MMOL/L (136-145) Potassium Level 4.5 MMOL/L (3.5-5.1) 3.8 MMOL/L (3.5-5.1) Chloride Level 107 MMOL/L (98-107) 106 MMOL/L (98-107) Carbon Dioxide Level 24 MMOL/L (21-32) 22 MMOL/L (21-32) Anion Gap 9 mmol/L (5-15) 8 mmol/L (5-15) Blood Urea Nitrogen 17 mg/dL (7-18) 17 mg/dL (7-18) Creatinine 1.5 MG/DL (0.55-1.30) 1.3 MG/DL (0.55-1.30) Estimat Glomerular Filtration Rate 46.3 mL/min (>60) 54.6 mL/min (>60) Glucose Level 110 MG/DL (74-106) 228 MG/DL (74-106) Calcium Level 8.6 MG/DL (8.5-10.1) 8.4 MG/DL (8.5-10.1) Thyroid Stimulating Hormone (TSH) 17.549 uiU/mL (0.358-3.740) Magnesium Level 1.7 MG/DL (1.8-2.4) Ammonia 15 umol/L (11-32) Phenytoin (Dilantin) Level 10.1 ug/mL (10-20) Differential Total Cells Counted 100 Neutrophils % (Manual) 90 % (45-75) Lymphocytes % (Manual) 3 % (20-45) Monocytes % (Manual) 7 % (1-10) Eosinophils % (Manual) 0 % (0-3) Basophils % (Manual) 0 % (0-2) Band Neutrophils 0 % (0-8) Platelet Estimate Adequate Platelet Morphology Normal Anisocytosis 1+ Urine Color Pale yellow Urine Appearance Clear Urine pH 7 (4.5-8.0) Urine Specific [place] 1.005 (1.005-1.035) Urine Protein 1+ (NEGATIVE) Urine Glucose (UA) Negative (NEGATIVE) Urine Ketones Negative (NEGATIVE) Urine Blood 3+ (NEGATIVE) Urine Nitrite Negative (NEGATIVE) Urine Bilirubin Negative (NEGATIVE) Urine Urobilinogen Normal MG/DL (0.0-1.0) Urine Leukocyte Esterase 3+ (NEGATIVE) Urine RBC 10-15 /HPF (0 - 0) Urine WBC Tntc /HPF (0 - 0) Urine Squamous Epithelial Cells Occasional /LPF Urine Bacteria Many /HPF (NONE) Test 07/01/19 05:20 07/01/19 05:45 White Blood Count 6.3 K/UL (4.8-10.8) Red Blood Count 2.83 M/UL (4.70-6.10) Hemoglobin 7.9 G/DL (14.2-18.0) Hematocrit 24.3 % (42.0-52.0) Mean Corpuscular Volume 86 FL (80-99) Mean Corpuscular Hemoglobin 28.0 PG (27.0-31.0) Mean Corpuscular Hemoglobin Concent 32.6 G/DL (32.0-36.0) Red Cell Distribution Width 16.0 % (11.6-14.8) Platelet Count 343 K/UL (150-450) Mean Platelet Volume 7.6 FL (6.5-10.1) Neutrophils (%) (Auto) % (45.0-75.0) Lymphocytes (%) (Auto) % (20.0-45.0) Monocytes (%) (Auto) % (1.0-10.0) Eosinophils (%) (Auto) % (0.0-3.0) Basophils (%) (Auto) % (0.0-2.0) Sodium Level 142 MMOL/L (136-145) Potassium Level 4.2 MMOL/L (3.5-5.1) Chloride Level 110 MMOL/L (98-107) Carbon Dioxide Level 25 MMOL/L (21-32) Anion Gap 7 mmol/L (5-15) Blood Urea Nitrogen 19 mg/dL (7-18) Creatinine 1.4 MG/DL (0.55-1.30) Estimat Glomerular Filtration Rate 50.1 mL/min (>60) Glucose Level 129 MG/DL (74-106) Uric Acid 4.5 MG/DL (2.6-7.2) Calcium Level 8.3 MG/DL (8.5-10.1) Phosphorus Level 2.6 MG/DL (2.5-4.9) Magnesium Level 1.8 MG/DL (1.8-2.4) Total Bilirubin 0.2 MG/DL (0.2-1.0) Aspartate Amino Transf (AST/SGOT) 18 U/L (15-37) Alanine Aminotransferase (ALT/SGPT) 30 U/L (12-78) Alkaline Phosphatase 180 U/L (46-116) C-Reactive Protein, Quantitative 13.9 mg/dL (0.00-0.90) Pro-B-Type Natriuretic Peptide 8413 pg/mL (0-125) Total Protein 5.7 G/DL (6.4-8.2) Albumin 2.0 G/DL (3.4-5.0) Globulin 3.7 g/dL Albumin/Globulin Ratio 0.5 (1.0-2.7) Phenytoin (Dilantin) Level 16.2 ug/mL (10-20) Phenobarbital Level 17.5 ug/mL (15-40) Arterial Blood pH 7.447 (7.350-7.450) Arterial Blood Partial Pressure CO2 33.1 mmHg (35.0-45.0) Arterial Blood Partial Pressure O2 128.5 mmHg (75.0-100.0) Arterial Blood HCO3 22.3 mmol/L (22.0-26.0) Arterial Blood Oxygen Saturation 97.9 % (95-100) Arterial Blood Base Excess -1.3 (-2-2) Ger Test Positive Height (Feet): 5 Height (Inches): 8.00 Weight (Pounds): 198 Objective PHYSICAL EXAMINATION: VITAL SIGNS: Have been reviewed HEENT: Trach/vent site ++ CHEST: Bibasilar rales CV: Regular rate and rhythm. GI: Positive bowel sounds. G-tube++ EXTREMITIES: + edema. NEUROLOGICAL: Reflexes equal on both sides. Nikos Nath MD Jul 01, 2019 16:28
--- NOTE | 2019-07-01 16:36 | Cardiology Progress Note ---
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 will taper pressor as possible d/w rn Subjective ROS Limited/Unobtainable: Yes Objective Last 24 Hour Vital Signs Date Time Temp Pulse Resp B/P (MAP) Pulse Ox O2 Delivery O2 Flow Rate FiO2 07/01/19 16:15 79 17 117/56 (76) 100 07/01/19 16:00 75 16 87/40 (56) 99 07/01/19 15:45 79 17 105/42 (63) 99 07/01/19 15:30 79 17 103/45 (64) 99 07/01/19 15:15 79 18 107/49 (68) 100 07/01/19 15:06 71 16 35 07/01/19 15:00 78 18 99/44 (62) 99 07/01/19 14:45 77 16 98/43 (61) 100 07/01/19 14:30 81 16 105/43 (63) 100 07/01/19 14:30 105/43 07/01/19 14:15 83 16 116/51 (72) 99 07/01/19 14:00 115/44 07/01/19 14:00 81 21 115/44 (67) 99 07/01/19 13:45 86 20 116/47 (70) 99 07/01/19 13:30 79 18 116/47 (70) 100 07/01/19 13:29 87 21 35 07/01/19 13:15 77 16 116/53 (74) 99 07/01/19 13:00 98/52 07/01/19 13:00 70 17 98/52 (67) 99 07/01/19 12:45 68 17 90/46 (61) 99 07/01/19 12:30 126/64 07/01/19 12:15 97.9 73 16 123/59 (80) 100 07/01/19 12:00 Mechanical Ventilator 07/01/19 12:00 115/51 07/01/19 12:00 76 17 115/51 (72) 99 07/01/19 12:00 30 07/01/19 12:00 66 07/01/19 11:45 76 17 130/65 (86) 99 07/01/19 11:30 119/57 07/01/19 11:30 70 17 119/57 (77) 100 07/01/19 11:23 72 16 35 07/01/19 11:15 87/40 07/01/19 11:15 63 16 87/40 (56) 99 07/01/19 11:00 96/47 07/01/19 11:00 69 18 96/47 (63) 100 07/01/19 10:45 64 16 108/52 (70) 100 07/01/19 10:45 108/52 07/01/19 10:30 68 17 103/46 (65) 100 07/01/19 10:30 103/46 07/01/19 10:15 64 16 98/45 (62) 100 07/01/19 10:15 98/45 07/01/19 10:10 61 16 77/37 (50) 99 07/01/19 10:10 77/37 07/01/19 10:05 63 16 90/40 (57) 100 07/01/19 10:00 70/32 07/01/19 10:00 63 16 70/32 (45) 99 07/01/19 09:45 71 17 90/43 (59) 99 07/01/19 09:30 79 16 106/52 (70) 98 07/01/19 09:15 75 17 115/50 (71) 98 07/01/19 09:15 115/50 07/01/19 09:00 70 16 35 07/01/19 09:00 108/52 07/01/19 09:00 75 16 108/52 (70) 100 07/01/19 08:45 73 17 122/65 (84) 100 07/01/19 08:45 122/65 07/01/19 08:30 67 16 129/65 (86) 100 07/01/19 08:30 129/65 07/01/19 08:00 30 07/01/19 08:00 99.1 66 17 129/65 (86) 100 07/01/19 08:00 129/65 10/22/19 08:00 62 07/01/19 08:00 Mechanical Ventilator 07/01/19 07:30 60 16 100/52 (68) 100 07/01/19 07:20 59 16 35 07/01/19 07:00 122/57 07/01/19 07:00 67 16 122/57 (78) 100 07/01/19 06:00 77 16 119/67 (84) 100 07/01/19 06:00 119/67 07/01/19 05:30 76 17 35 07/01/19 05:30 80 16 122/64 (83) 99 07/01/19 05:00 121/61 07/01/19 05:00 82 22 121/61 (81) 07/01/19 04:30 85 16 107/49 (68) 99 07/01/19 04:00 99.7 81 17 108/52 (70) 100 07/01/19 04:00 30 07/01/19 04:00 Mechanical Ventilator 07/01/19 03:30 72 18 102/50 (67) 99 07/01/19 03:11 73 07/01/19 03:10 70 16 35 07/01/19 03:00 76 17 110/51 (70) 99 07/01/19 02:30 71 18 103/48 (66) 99 07/01/19 02:00 72 16 106/47 (66) 99 07/01/19 02:00 106/47 07/01/19 01:30 73 15 98/45 (62) 99 07/01/19 01:00 73 15 97/46 (63) 99 07/01/19 01:00 84 24 35 07/01/19 01:00 99/54 07/01/19 00:52 99/54 07/01/19 00:30 69 16 102/46 (64) 07/01/19 00:00 Mechanical Ventilator 07/01/19 00:00 98.0 70 17 108/51 (70) 07/01/19 00:00 108/51 07/01/19 00:00 30 07/01/19 00:00 68 06/30/19 23:30 68 16 96/47 (63) 06/30/19 23:12 81 24 35 06/30/19 23:00 94/43 06/30/19 23:00 67 16 94/43 (60) 06/30/19 22:30 75 17 94/47 (63) 06/30/19 22:15 78 16 103/49 (67) 06/30/19 22:00 105/44 06/30/19 22:00 74 18 105/44 (64) 06/30/19 21:45 77 16 105/57 (73) 06/30/19 21:30 77 20 108/39 (62) 06/30/19 21:15 77 18 95/37 (56) 06/30/19 21:00 81 18 105/50 (68) 06/30/19 21:00 105/50 06/30/19 21:00 84 21 35 06/30/19 20:45 79 18 92/54 (67) 06/30/19 20:30 81 16 94/36 (55) 06/30/19 20:15 81 17 94/66 (75) 98 06/30/19 20:00 Mechanical Ventilator 06/30/19 20:00 95/52 06/30/19 20:00 30 06/30/19 20:00 98.4 80 18 95/52 (66) 99 06/30/19 20:00 82 06/30/19 19:50 98.4 06/30/19 19:45 81 21 90/60 (70) 99 06/30/19 19:30 83 18 114/61 (78) 99 06/30/19 19:00 84 17 121/64 (83) 98 06/30/19 19:00 121/64 06/30/19 19:00 81 22 35 06/30/19 18:45 100.4 87 20 121/64 (83) 99 06/30/19 18:30 86 17 119/50 (73) 97 06/30/19 18:15 86 18 128/58 (81) 98 06/30/19 18:00 84 14 127/56 (79) 98 06/30/19 18:00 128/58 06/30/19 17:27 79 21 35 06/30/19 17:00 76 16 126/64 (84) 100 06/30/19 17:00 126/64 06/30/19 16:45 73 17 125/57 (79) 100 General Appearance: no apparent distress, on vent, patient on isolation Cardiovascular: normal rate Respiratory/Chest: lungs clear Abdomen: normal bowel sounds, non tender, soft Extremities: no swelling Intake and Output 06/30/19 07/01/19 19:00 07:00 Intake Total 1842.5 ml 1355 ml Output Total 1250 ml 1490 ml Balance 592.5 ml -135 ml IV Total 1137.5 ml 835 ml Tube Feeding 585 ml 520 ml Other 120 ml Output Urine Total 1250 ml 1490 ml Laboratory Tests Test 07/01/19 05:20 07/01/19 05:45 White Blood Count 6.3 K/UL (4.8-10.8) # Red Blood Count 2.83 M/UL (4.70-6.10) L Hemoglobin 7.9 G/DL (14.2-18.0) L Hematocrit 24.3 % (42.0-52.0) L Mean Corpuscular Volume 86 FL (80-99) Mean Corpuscular Hemoglobin 28.0 PG (27.0-31.0) Mean Corpuscular Hemoglobin Concent 32.6 G/DL (32.0-36.0) Red Cell Distribution Width 16.0 % (11.6-14.8) H Platelet Count 343 K/UL (150-450) Mean Platelet Volume 7.6 FL (6.5-10.1) Neutrophils (%) (Auto) % (45.0-75.0) Lymphocytes (%) (Auto) % (20.0-45.0) Monocytes (%) (Auto) % (1.0-10.0) Eosinophils (%) (Auto) % (0.0-3.0) Basophils (%) (Auto) % (0.0-2.0) Sodium Level 142 MMOL/L (136-145) Potassium Level 4.2 MMOL/L (3.5-5.1) Chloride Level 110 MMOL/L (98-107) H Carbon Dioxide Level 25 MMOL/L (21-32) Anion Gap 7 mmol/L (5-15) Blood Urea Nitrogen 19 mg/dL (7-18) H Creatinine 1.4 MG/DL (0.55-1.30) H Estimat Glomerular Filtration Rate 50.1 mL/min (>60) Glucose Level 129 MG/DL (74-106) #H Uric Acid 4.5 MG/DL (2.6-7.2) Calcium Level 8.3 MG/DL (8.5-10.1) L Phosphorus Level 2.6 MG/DL (2.5-4.9) Magnesium Level 1.8 MG/DL (1.8-2.4) Total Bilirubin 0.2 MG/DL (0.2-1.0) Aspartate Amino Transf (AST/SGOT) 18 U/L (15-37) Alanine Aminotransferase (ALT/SGPT) 30 U/L (12-78) Alkaline Phosphatase 180 U/L (46-116) H C-Reactive Protein, Quantitative 13.9 mg/dL (0.00-0.90) H Pro-B-Type Natriuretic Peptide 8413 pg/mL (0-125) H Total Protein 5.7 G/DL (6.4-8.2) L Albumin 2.0 G/DL (3.4-5.0) L Globulin 3.7 g/dL Albumin/Globulin Ratio 0.5 (1.0-2.7) L Phenytoin (Dilantin) Level 16.2 ug/mL (10-20) Phenobarbital Level 17.5 ug/mL (15-40) Arterial Blood pH 7.447 (7.350-7.450) Arterial Blood Partial Pressure CO2 33.1 mmHg (35.0-45.0) L Arterial Blood Partial Pressure O2 128.5 mmHg (75.0-100.0) H Arterial Blood HCO3 22.3 mmol/L (22.0-26.0) Arterial Blood Oxygen Saturation 97.9 % (95-100) Arterial Blood Base Excess -1.3 (-2-2) Ger Test Positive Microbiology Date/Time Source Procedure Growth Status 06/30/19 13:40 Urine,Clean Catch Urine Culture - Preliminary Resulted Javier Ponce MD Jul 01, 2019 16:36
--- NOTE | 2019-07-01 16:46 | NUR ---
NURSE NOTES: patient seen by Dr. Ponce. MD made aware that levophed currently running at 2mcg/min, BP dropped when levophed was off earlier. Per MD, to decrease levophed by 1ml/hr every 1 hour.
--- NOTE | 2019-07-01 18:35 | NUR ---
NURSE NOTES: Levophed running at 1.2mcg/min, BP 121/59. Patient withdraws to painful stimuli. No distress noted. Trach suction provided, moderate frothy whitish secretion noted. Oral care provided. Patient was turned and repositioned. Patient kept clean and dry. SR with PACs and PVCs noted on phototypesetting equipment monitor.
--- NOTE | 2019-07-01 19:10 | NUR ---
HAND-OFF: Report given to ODILIA Dumas.
[2019-07-01] MEDS: Dyna-Hex 2% Top Sol 2oz TOPIC SCH (19:31)
--- NOTE | 2019-07-01 19:40 | NUR ---
NURSE NOTES: PATIENT ASLEEP STATUS, RESPONSE TO TACTILE STIMULI, ON TRACH TO VENT, AC 16/TV 600/FIO2 35%/ NO PEEP, O2 SATURATION 99% NOTED, ABDOMEN SOFT, NON TENDER, NO BOWEL MOVEMENT STATUS, G TUBE INTACT AND PATENT, ONGOING OSMOLITE 1.5 AT 65ML/HR, NO RESIDUE NOTED, KEPT HOB OVER 30 DEGREES, F/C INTACT AND PATENT, YELLOW URINE OUTED GRAVITY, PICC LINE TO LEFT UPPER ARM, INTACT AND PATENT, ONGOING LEVOPHED 4.5ML/HR AND D5W NS AT 50ML/HR VIA PICC LINE, ON P200 BED, KEPT SZ PRECAUTION, ON BED ALARM AND LOCKED, MADE LOWER BED POSITION, WILL CONTINUE TO MONITOR.
[2019-07-01] MEDS: Zinc Oxide Oint 2oz TOPIC SCH (20:53)
--- NOTE | 2019-07-01 22:00 | NUR ---
NURSE NOTES: REPOSITIONED, ORAL CARE WAS DONE.
[2019-07-02] VITALS (55 sets, daily range): BP systolic 69–147; BP diastolic 33–98
--- NOTE | 2019-07-02 00:15 | Electroencephalogram ---
DATE OF PROCEDURE: 06/30/2019 REQUESTING PHYSICIAN: Jd Gaffney MD & Gato Viveros DO READING PHYSICIAN: Oziel Shelley M.D. PROCEDURE PERFORMED: Electroencephalogram. HISTORY: This EEG was performed on a 68-year-old gentleman with a history of multiple medical problems including cerebrovascular disease and a seizure disorder. His prior EEG had revealed multiple seizures, which started in the left frontal area and then secondarily generalized. The patient has since been treated with multiple anticonvulsants and has been noted to have no clinical seizures. The purpose of this EEG was to evaluate the patient for ongoing ictal or interictal phenomena. TECHNICAL NOTE: This EEG was performed on a [employer] with electrodes placed on the scalp according to the International 10-20 system. [id number] and [id number] montages were used. The EEG was technically satisfactory and was performed while the patient was in a poorly responsive state. OBSERVATIONS: In the poorly responsive state the background activity consisted of low amplitude theta and delta activity. Two episodes of F3 sharp discharges starting at a slow rate and then building up to a crescendo then a decrescendo were seen. The longer episode lasted 120 seconds. There was no spread of the discharges from the left frontal area. IMPRESSION: This is an abnormal EEG characterized by: 1. Low amplitude slow activity in the delta and theta range, in the poorly responsive state. 2. F3 sharp discharges building up into a crescendo and then decrescendo seen on 2 occasions with the longer episode lasting 120 seconds, not associated with any clinical correlate. COMMENT: This study is consistent with: 1. A severe encephalopathy. 2. A left frontal epileptogenic focus with 2 electrographic seizures, but no clinical seizure. Clinical correlation is recommended. Oziel Shelley M.D., M.S.P.H. DR: DAVID JOB#: [id number] [email or web address]
--- NOTE | 2019-07-02 00:33 | NUR ---
NURSE NOTES: PATIENT ASLEEP STATUS, NO PAIN OR DISTRESS NOTED AT THIS TIME, ONGOING LEVOPHED 2.5ML/HR VIA PICC LINE.
--- NOTE | 2019-07-02 02:00 | NUR ---
NURSE NOTES: BP 119/60MMHG NOTED, DECREASED LEVOPHED DRIP TO 1.5 ML/HR PER MD'S ORDER, WILL CONTINUE PLAN OF CARE.
--- NOTE | 2019-07-02 04:10 | NUR ---
NURSE NOTES: MORNING CARE WAS DONE, NO BOWEL MOVEMENT STATUS.
[2019-07-02 05:31] LABS: HEMATOCRIT 23.5 % (42.0-52.0); HEMOGLOBIN 7.5 G/DL (14.2-18.0); MEAN CORPUSCULAR VOLUME 87 FL (80-99); PLATELET COUNT 302 K/UL (150-450); RED BLOOD COUNT 2.71 M/UL (4.70-6.10); RED CELL DISTRIBUTION WIDTH 15.9 % (11.6-14.8); WHITE BLOOD COUNT 6.2 K/UL (4.8-10.8)
[2019-07-02 05:56] LABS: ALANINE AMINOTRANSFERASE 24 U/L (12-78); ALBUMIN 2.2 G/DL (3.4-5.0); ALBUMIN/GLOBULIN RATIO 0.6 (1.0-2.7); ALKALINE PHOSPHATASE 170 U/L (46-116); ANION GAP 8 mmol/L (5-15); ASPARTATE AMINO TRANSFERASE 13 U/L (15-37); BILIRUBIN,TOTAL 0.2 MG/DL (0.2-1.0); BLOOD UREA NITROGEN 18 mg/dL (7-18); CALCIUM 8.2 MG/DL (8.5-10.1); CARBON DIOXIDE 24 MMOL/L (21-32); CHLORIDE 112 MMOL/L (98-107); CREATININE 1.3 MG/DL (0.55-1.30); PHOSPHORUS 2.7 MG/DL (2.5-4.9); POTASSIUM 4.3 MMOL/L (3.5-5.1); SODIUM 144 MMOL/L (136-145)
--- NOTE | 2019-07-02 06:00 | NUR ---
NURSE NOTES: TURN LEVOPHED DRIP OFF DUE TO NORMAL BP.
[2019-07-02] MEDS: PHENobarbital Elixir 30mg/7.5ml NG SCH ×3 (06:01→21:38)
[2019-07-02] MEDS: Sucralfate 1gm tab GT SCH ×3 (06:02→21:39)
[2019-07-02] MEDS: Midodrine 10mg tab GT SCH ×3 (06:02→21:39)
[2019-07-02] MEDS: D5NS 1,000 ML IV SCH (06:04)
--- NOTE | 2019-07-02 06:10 | NUR ---
NURSE NOTES: SEEN THE PATIENT BY DR. LOOMIS.
--- NOTE | 2019-07-02 06:20 | NUR ---
NURSE NOTES: NO ACUTE DISTRESS NOTED AT THIS SHIFT.
[2019-07-02] MEDS ORDERED: NS 275ml ONE ×2 (06:27→17:44)
[2019-07-02] MEDS ORDERED: D5W 275ml ONE (06:27)
[2019-07-02] MEDS ORDERED: D5NS 1000ml IV ONE ×2 (06:27→17:44)
[2019-07-02] MEDS ORDERED: Sterile Water Irrig 1000ml IRRIG ONE (06:27)
[2019-07-02] MEDS ORDERED: Tubing IV Secondary IV ONE (06:27)
--- NOTE | 2019-07-02 06:38 | NUR ---
NURSE NOTES: RESTARTED LEVOPHED DRIP 1ML/HR ORDERED DUE TO BP 87/43 MMHG, WILL CONTINUE TO MONITOR.
--- NOTE | 2019-07-02 07:10 | NUR ---
HAND-OFF: Report given to Morena KEEN RN.
--- NOTE | 2019-07-02 07:11 | NUR ---
NURSE NOTES: Received patient from ODILIA Dumas. Patient eyes closed at this time. Patient reported to be open eyes but does not track or communicate. Patient eyes closed at this time. Patient blood pressure 128/55, HR 74, SpO2 100%, and temp 98.5. Patient trach to ventilator with setting of AC 16, tidal volume 600, FiO2 35%, and PEEP 0. Patient tolerating ventilator setting with no sign of acute distress with RR of 16 and SpO2 100%. Patient has copious oral secretions. Secretions foamy white in color. Oral suction performed at this time. Rhonchi heard in all four quadrants. Patient has gastrostomy tube in left upper quadrant of abdomen with cellulitis noted around G tube site in addition to on left arm. Patient gastrostomy tube is patent, asymptomatic, and clamped at this time. Tube feeding of Osmolite 1.5 at 65mL/hr held a this time. Tube feeding to run for only 18hours per day. Patient has petty catheter that is patent, asymptomatic, and draining pale/clear yellow urine at this time. Patient on low air loss mattress. All limbs contracted. Patient appears to only move his left side. Patient has left middle back/side small wound that is weeping serous fluid at this time, bilateral heel DTI, and cellulitis noted on abdomen and left arm. Patient has PICC line on left upper arm that is patent, symptomatic, dressing intact with dressing change done on 07/01, and running D5 0.9%NS at 100mL/hr and Levophed at 1mL/hr at this time. It was reported that when the levophed was turned off, the patent's blood pressure dropped to 87/44. BP now 123/98. Will continue to monitor and titrate patient off of Levophed when it is safe to do so. Patient has low Hgb of 7.[address] Nath is aware and no new orders received. Patient bed in low position with bed alarm on and call light in reach at this time. Will continue to monitor BP and turn of levophed when possible. oral care and repositioning done at this time. Addendum: 07/02/19 at 1014 by Marge Reyes RN pitting edema noted in bilateral upper extremities +1 and right hand +2. Bilateral feet pitting edema +2 noted.
[2019-07-02] MEDS: Cefepime HCl 1 GM in D5W 55 ML IVPB SCH ×2 (08:58→20:42)
--- NOTE | 2019-07-02 09:13 | General Progress Note ---
Assessment/Plan Problem List: (1) [facility] resident ICD Codes: Z59.3 - Problems related to living in residential institution SNOMED: 264563577 (2) GT SITE LEAKING (3) Alzheimer's dementia ICD Codes: G30.9 - Alzheimer's disease, unspecified SNOMED: 42766013 (4) Upper GI bleed ICD Codes: K92.2 - Upper gastrointestinal hemorrhage SNOMED: 09506036 (5) Severe erosive esophagitis (6) Malfunction of gastrostomy tube ICD Codes: K94.23 - Gastrostomy malfunction SNOMED: 966055868 (7) Chronic respiratory failure ICD Codes: J96.10 - Chronic respiratory failure, unspecified whether with hypoxia or hypercapnia SNOMED: 27398491 (8) Anemia ICD Codes: D64.9 - Anemia, unspecified SNOMED: 204262484 Status: unchanged Assessment/Plan: stable H&H no obvious GIB per nurses ppi GTF tapering off pressor abx per ID ICU care Subjective ROS Limited/Unobtainable: No Allergies: Coded Allergies: NO KNOWN DRUG ALLERGIES (Verified Allergy, Unknown, 09/11/16) Subjective only on low rate pressor GTF running Objective Last 24 Hour Vital Signs Date Time Temp Pulse Resp B/P (MAP) Pulse Ox O2 Delivery O2 Flow Rate FiO2 07/02/19 08:54 74 17 35 07/02/19 08:00 77 07/02/19 08:00 Mechanical Ventilator 07/02/19 08:00 35 07/02/19 07:45 74 16 123/98 (106) 100 07/02/19 07:30 74 16 128/56 (80) 100 07/02/19 07:20 73 16 35 07/02/19 07:15 75 18 125/55 (78) 100 07/02/19 07:00 74 17 110/50 (70) 100 07/02/19 06:45 79 18 131/59 (83) 100 07/02/19 06:43 78 18 121/65 (83) 100 07/02/19 06:38 87/43 07/02/19 06:30 71 16 87/43 (58) 99 07/02/19 06:00 78 16 107/54 (71) 100 07/02/19 06:00 107/54 07/02/19 05:30 77 17 119/55 (76) 100 07/02/19 05:15 79 19 35 07/02/19 05:00 80 18 115/58 (77) 100 07/02/19 05:00 115/58 07/02/19 04:34 114/66 07/02/19 04:30 82 16 114/66 (82) 100 07/02/19 04:00 35 07/02/19 04:00 115/65 07/02/19 04:00 Mechanical Ventilator 07/02/19 04:00 97.8 82 19 115/65 (82) 100 07/02/19 03:46 83 07/02/19 03:30 82 16 126/60 (82) 100 07/02/19 03:00 101/54 07/02/19 03:00 79 18 101/54 (70) 99 07/02/19 02:31 81 18 35 07/02/19 02:30 80 19 124/59 (80) 99 07/02/19 02:00 119/60 07/02/19 02:00 83 18 119/60 (79) 99 07/02/19 01:30 87 19 128/80 (96) 99 07/02/19 01:00 85 16 132/54 (80) 100 07/02/19 00:55 87 21 35 07/02/19 00:30 83 19 123/59 (80) 99 07/02/19 00:00 35 07/02/19 00:00 99.3 84 20 125/71 (89) 99 07/02/19 00:00 125/71 07/02/19 00:00 Mechanical Ventilator 07/01/19 23:30 82 19 129/62 (84) 99 07/01/19 23:08 84 07/01/19 23:06 84 18 35 07/01/19 23:00 82 23 127/64 (85) 98 07/01/19 23:00 127/64 07/01/19 22:30 87 19 117/59 (78) 98 07/01/19 22:00 90 15 128/61 (83) 88 07/01/19 22:00 128/61 07/01/19 21:30 82 14 103/48 (66) 100 07/01/19 21:00 81 18 110/44 (66) 100 07/01/19 21:00 110/44 07/01/19 20:56 83 17 35 07/01/19 20:30 85 16 113/47 (69) 99 07/01/19 20:00 Mechanical Ventilator 07/01/19 20:00 117/44 07/01/19 20:00 35 07/01/19 20:00 99.1 84 14 117/44 (68) 100 07/01/19 19:30 81 17 95/43 (60) 99 07/01/19 19:25 80 07/01/19 19:00 107/53 07/01/19 19:00 84 17 107/53 (71) 99 07/01/19 18:45 86 17 119/46 (70) 100 07/01/19 18:42 84 21 35 07/01/19 18:30 84 17 121/59 (79) 99 07/01/19 18:30 121/59 07/01/19 18:15 85 17 124/45 (71) 99 07/01/19 18:00 88 15 116/46 (69) 100 07/01/19 18:00 116/46 07/01/19 17:45 85 18 123/78 (93) 99 07/01/19 17:30 118/60 07/01/19 17:30 80 18 118/60 (79) 100 07/01/19 17:19 83 22 35 07/01/19 17:17 78 16 109/57 (74) 100 07/01/19 17:00 79 16 115/47 (69) 100 07/01/19 17:00 115/47 07/01/19 16:45 79 17 112/57 (75) 100 07/01/19 16:30 79 17 120/43 (68) 100 07/01/19 16:30 120/43 07/01/19 16:15 79 17 117/56 (76) 100 07/01/19 16:00 Mechanical Ventilator 07/01/19 16:00 87/40 07/01/19 16:00 80 07/01/19 16:00 30 07/01/19 16:00 75 16 87/40 (56) 99 07/01/19 15:45 79 17 105/42 (63) 99 07/01/19 15:30 79 17 103/45 (64) 99 07/01/19 15:15 79 18 107/49 (68) 100 07/01/19 15:06 71 16 35 07/01/19 15:00 78 18 99/44 (62) 99 07/01/19 14:45 77 16 98/43 (61) 100 07/01/19 14:30 81 16 105/43 (63) 100 07/01/19 14:30 105/43 07/01/19 14:15 83 16 116/51 (72) 99 07/01/19 14:00 115/44 07/01/19 14:00 81 21 115/44 (67) 99 07/01/19 13:45 86 20 116/47 (70) 99 07/01/19 13:30 79 18 116/47 (70) 100 07/01/19 13:29 87 21 35 07/01/19 13:15 77 16 116/53 (74) 99 07/01/19 13:00 98/52 07/01/19 13:00 70 17 98/52 (67) 99 07/01/19 12:45 68 17 90/46 (61) 99 07/01/19 12:30 126/64 07/01/19 12:15 97.9 73 16 123/59 (80) 100 07/01/19 12:00 Mechanical Ventilator 07/01/19 12:00 115/51 07/01/19 12:00 76 17 115/51 (72) 99 07/01/19 12:00 30 07/01/19 12:00 66 07/01/19 11:45 76 17 130/65 (86) 99 07/01/19 11:30 119/57 07/01/19 11:30 70 17 119/57 (77) 100 07/01/19 11:23 72 16 35 07/01/19 11:15 87/40 07/01/19 11:15 63 16 87/40 (56) 99 07/01/19 11:00 96/47 07/01/19 11:00 69 18 96/47 (63) 100 07/01/19 10:45 64 16 108/52 (70) 100 07/01/19 10:45 108/52 07/01/19 10:30 68 17 103/46 (65) 100 07/01/19 10:30 103/46 07/01/19 10:15 64 16 98/45 (62) 100 07/01/19 10:15 98/45 07/01/19 10:10 61 16 77/37 (50) 99 07/01/19 10:10 77/37 07/01/19 10:05 63 16 90/40 (57) 100 07/01/19 10:00 70/32 07/01/19 10:00 63 16 70/32 (45) 99 07/01/19 09:45 71 17 90/43 (59) 99 07/01/19 09:30 79 16 106/52 (70) 98 07/01/19 09:15 75 17 115/50 (71) 98 07/01/19 09:15 115/50 Intake and Output 07/01/19 07/02/19 19:00 07:00 Intake Total 2362.365 ml 1519.0 ml Output Total 1590 ml 1910 ml Balance 772.365 ml -391.0 ml Intake Free Water 120 ml IV Total 1527.365 ml 634.0 ml Tube Feeding 715 ml 685 ml Other 200 ml Output Urine Total 1590 ml 1910 ml Laboratory Tests 07/02/19 04:45: White Blood Count 6.2, Red Blood Count 2.71L, Hemoglobin 7.5L, Hematocrit 23.5L , Mean Corpuscular Volume 87, Mean Corpuscular Hemoglobin 27.8, Mean Corpuscular Hemoglobin Concent 32.1, Red Cell Distribution Width 15.9H, Platelet Count 302, Mean Platelet Volume 7.5, Neutrophils (%) (Auto) , Lymphocytes (%) (Auto) , Monocytes (%) (Auto) , Eosinophils (%) (Auto) , Basophils (%) (Auto) , Sodium Level 144, Potassium Level 4.3, Chloride Level 112H, Carbon Dioxide Level 24, Anion Gap 8, Blood Urea Nitrogen 18, Creatinine 1.3, Estimat Glomerular Filtration Rate 54.6, Glucose Level 104, Calcium Level 8.2L, Phosphorus Level 2.7, Magnesium Level 1.8, Total Bilirubin 0.2, Aspartate Amino Transf (AST/SGOT) 13L, Alanine Aminotransferase (ALT/SGPT) 24, Alkaline Phosphatase 170H, C-Reactive Protein, Quantitative 9.1H, Pro-B-Type Natriuretic Peptide [id number], Total Protein 5.9L, Albumin 2.2L, Globulin 3.7, Albumin/ Globulin Ratio 0.6L 07/02/19 07:47: Arterial Blood pH 7.435, Arterial Blood Partial Pressure CO2 35.6, Arterial Blood Partial Pressure O2 119.7H, Arterial Blood HCO3 23.4, Arterial Blood Oxygen Saturation 98.3, Arterial Blood Base Excess -0.7, Ger Test Positive Height (Feet): 5 Height (Inches): 8.00 Weight (Pounds): 143 General Appearance: lethargic EENT: normal ENT inspection Neck: supple Cardiovascular: tachycardia Respiratory/Chest: decreased breath sounds Abdomen: normal bowel sounds, non tender, soft Extremities: non-tender Vitaliy Wilson MD Jul 02, 2019 09:13
--- NOTE | 2019-07-02 09:26 | General Progress Note ---
Assessment/Plan Problem List: (1) Diabetes ICD Codes: E11.9 - Type 2 diabetes mellitus without complications SNOMED: 09485170 (2) HTN (hypertension) ICD Codes: I10 - Essential (primary) hypertension SNOMED: 63011322 (3) CVA (cerebral vascular accident) ICD Codes: I63.9 - Cerebral infarction, unspecified SNOMED: 390953457 (4) Severe protein-calorie malnutrition ICD Codes: E43 - Unspecified severe protein-calorie malnutrition SNOMED: 229127166 (5) Feeding by G-tube ICD Codes: Z93.1 - Gastrostomy status SNOMED: 618815248, 734249757 (6) Respiratory failure, [id number] ICD Codes: J96.20 - Respiratory failure, [id number] SNOMED: 10465400 (7) Anemia ICD Codes: D64.9 - Anemia, unspecified SNOMED: 773106812 (8) Chronic respiratory failure ICD Codes: J96.10 - Chronic respiratory failure, unspecified whether with hypoxia or hypercapnia SNOMED: 95327654 (9) Septic shock ICD Codes: A41.9 - Sepsis, unspecified organism; R65.21 - Severe sepsis with septic shock SNOMED: 09550555 (10) Alzheimer's dementia ICD Codes: G30.9 - Alzheimer's disease, unspecified SNOMED: 04007024 (11) Severe sepsis ICD Codes: A41.9 - Sepsis, unspecified organism; R65.20 - Severe sepsis without septic shock SNOMED: 16482286 (12) Hypothyroidism ICD Codes: E03.9 - Hypothyroidism, unspecified SNOMED: 48985844 Status: unchanged Assessment/Plan: vent abx wean pressor cbc bmp am tranfuse prn neuro eval ltach eval Subjective Constitutional: Reports: weakness Allergies: Coded Allergies: NO KNOWN DRUG ALLERGIES (Verified Allergy, Unknown, 09/11/16) All Systems: reviewed and negative except above Subjective trach vent altered in icu Objective Last 24 Hour Vital Signs Date Time Temp Pulse Resp B/P (MAP) Pulse Ox O2 Delivery O2 Flow Rate FiO2 07/02/19 08:54 74 17 35 07/02/19 08:00 77 07/02/19 08:00 Mechanical Ventilator 07/02/19 08:00 35 07/02/19 07:45 74 16 123/98 (106) 100 07/02/19 07:30 74 16 128/56 (80) 100 07/02/19 07:20 73 16 35 07/02/19 07:15 75 18 125/55 (78) 100 07/02/19 07:00 74 17 110/50 (70) 100 07/02/19 06:45 79 18 131/59 (83) 100 07/02/19 06:43 78 18 121/65 (83) 100 07/02/19 06:38 87/43 07/02/19 06:30 71 16 87/43 (58) 99 07/02/19 06:00 78 16 107/54 (71) 100 07/02/19 06:00 107/54 07/02/19 05:30 77 17 119/55 (76) 100 07/02/19 05:15 79 19 35 07/02/19 05:00 80 18 115/58 (77) 100 07/02/19 05:00 115/58 07/02/19 04:34 114/66 07/02/19 04:30 82 16 114/66 (82) 100 07/02/19 04:00 35 07/02/19 04:00 115/65 07/02/19 04:00 Mechanical Ventilator 07/02/19 04:00 97.8 82 19 115/65 (82) 100 07/02/19 03:46 83 07/02/19 03:30 82 16 126/60 (82) 100 07/02/19 03:00 101/54 07/02/19 03:00 79 18 101/54 (70) 99 07/02/19 02:31 81 18 35 07/02/19 02:30 80 19 124/59 (80) 99 07/02/19 02:00 119/60 07/02/19 02:00 83 18 119/60 (79) 99 07/02/19 01:30 87 19 128/80 (96) 99 07/02/19 01:00 85 16 132/54 (80) 100 07/02/19 00:55 87 21 35 07/02/19 00:30 83 19 123/59 (80) 99 07/02/19 00:00 35 07/02/19 00:00 99.3 84 20 125/71 (89) 99 07/02/19 00:00 125/71 07/02/19 00:00 Mechanical Ventilator 07/01/19 23:30 82 19 129/62 (84) 99 07/01/19 23:08 84 07/01/19 23:06 84 18 35 07/01/19 23:00 82 23 127/64 (85) 98 07/01/19 23:00 127/64 07/01/19 22:30 87 19 117/59 (78) 98 07/01/19 22:00 90 15 128/61 (83) 88 07/01/19 22:00 128/61 07/01/19 21:30 82 14 103/48 (66) 100 07/01/19 21:00 81 18 110/44 (66) 100 07/01/19 21:00 110/44 07/01/19 20:56 83 17 35 07/01/19 20:30 85 16 113/47 (69) 99 07/01/19 20:00 Mechanical Ventilator 07/01/19 20:00 117/44 07/01/19 20:00 35 07/01/19 20:00 99.1 84 14 117/44 (68) 100 07/01/19 19:30 81 17 95/43 (60) 99 07/01/19 19:25 80 07/01/19 19:00 107/53 07/01/19 19:00 84 17 107/53 (71) 99 07/01/19 18:45 86 17 119/46 (70) 100 07/01/19 18:42 84 21 35 07/01/19 18:30 84 17 121/59 (79) 99 07/01/19 18:30 121/59 07/01/19 18:15 85 17 124/45 (71) 99 07/01/19 18:00 88 15 116/46 (69) 100 07/01/19 18:00 116/46 07/01/19 17:45 85 18 123/78 (93) 99 07/01/19 17:30 118/60 07/01/19 17:30 80 18 118/60 (79) 100 07/01/19 17:19 83 22 35 07/01/19 17:17 78 16 109/57 (74) 100 07/01/19 17:00 79 16 115/47 (69) 100 07/01/19 17:00 115/47 07/01/19 16:45 79 17 112/57 (75) 100 07/01/19 16:30 79 17 120/43 (68) 100 07/01/19 16:30 120/43 07/01/19 16:15 79 17 117/56 (76) 100 07/01/19 16:00 Mechanical Ventilator 07/01/19 16:00 87/40 07/01/19 16:00 80 07/01/19 16:00 30 07/01/19 16:00 75 16 87/40 (56) 99 07/01/19 15:45 79 17 105/42 (63) 99 07/01/19 15:30 79 17 103/45 (64) 99 07/01/19 15:15 79 18 107/49 (68) 100 07/01/19 15:06 71 16 35 07/01/19 15:00 78 18 99/44 (62) 99 07/01/19 14:45 77 16 98/43 (61) 100 07/01/19 14:30 81 16 105/43 (63) 100 07/01/19 14:30 105/43 07/01/19 14:15 83 16 116/51 (72) 99 07/01/19 14:00 115/44 07/01/19 14:00 81 21 115/44 (67) 99 07/01/19 13:45 86 20 116/47 (70) 99 07/01/19 13:30 79 18 116/47 (70) 100 07/01/19 13:29 87 21 35 07/01/19 13:15 77 16 116/53 (74) 99 07/01/19 13:00 98/52 07/01/19 13:00 70 17 98/52 (67) 99 07/01/19 12:45 68 17 90/46 (61) 99 07/01/19 12:30 126/64 07/01/19 12:15 97.9 73 16 123/59 (80) 100 07/01/19 12:00 Mechanical Ventilator 07/01/19 12:00 115/51 07/01/19 12:00 76 17 115/51 (72) 99 07/01/19 12:00 30 07/01/19 12:00 66 07/01/19 11:45 76 17 130/65 (86) 99 07/01/19 11:30 119/57 07/01/19 11:30 70 17 119/57 (77) 100 07/01/19 11:23 72 16 35 07/01/19 11:15 87/40 07/01/19 11:15 63 16 87/40 (56) 99 07/01/19 11:00 96/47 07/01/19 11:00 69 18 96/47 (63) 100 07/01/19 10:45 64 16 108/52 (70) 100 07/01/19 10:45 108/52 07/01/19 10:30 68 17 103/46 (65) 100 07/01/19 10:30 103/46 07/01/19 10:15 64 16 98/45 (62) 100 07/01/19 10:15 98/45 07/01/19 10:10 61 16 77/37 (50) 99 07/01/19 10:10 77/37 07/01/19 10:05 63 16 90/40 (57) 100 07/01/19 10:00 70/32 07/01/19 10:00 63 16 70/32 (45) 99 07/01/19 09:45 71 17 90/43 (59) 99 07/01/19 09:30 79 16 106/52 (70) 98 Intake and Output 07/01/19 07/02/19 19:00 07:00 Intake Total 2362.365 ml 1519.0 ml Output Total 1590 ml 1910 ml Balance 772.365 ml -391.0 ml Intake Free Water 120 ml IV Total 1527.365 ml 634.0 ml Tube Feeding 715 ml 685 ml Other 200 ml Output Urine Total 1590 ml 1910 ml Laboratory Tests 07/02/19 04:45: White Blood Count 6.2, Red Blood Count 2.71L, Hemoglobin 7.5L, Hematocrit 23.5L , Mean Corpuscular Volume 87, Mean Corpuscular Hemoglobin 27.8, Mean Corpuscular Hemoglobin Concent 32.1, Red Cell Distribution Width 15.9H, Platelet Count 302, Mean Platelet Volume 7.5, Neutrophils (%) (Auto) , Lymphocytes (%) (Auto) , Monocytes (%) (Auto) , Eosinophils (%) (Auto) , Basophils (%) (Auto) , Sodium Level 144, Potassium Level 4.3, Chloride Level 112H, Carbon Dioxide Level 24, Anion Gap 8, Blood Urea Nitrogen 18, Creatinine 1.3, Estimat Glomerular Filtration Rate 54.6, Glucose Level 104, Calcium Level 8.2L, Phosphorus Level 2.7, Magnesium Level 1.8, Total Bilirubin 0.2, Aspartate Amino Transf (AST/SGOT) 13L, Alanine Aminotransferase (ALT/SGPT) 24, Alkaline Phosphatase 170H, C-Reactive Protein, Quantitative 9.1H, Pro-B-Type Natriuretic Peptide 18251H, Total Protein 5.9L, Albumin 2.2L, Globulin 3.7, Albumin/ Globulin Ratio 0.6L 07/02/19 07:47: Arterial Blood pH 7.435, Arterial Blood Partial Pressure CO2 35.6, Arterial Blood Partial Pressure O2 119.7H, Arterial Blood HCO3 23.4, Arterial Blood Oxygen Saturation 98.3, Arterial Blood Base Excess -0.7, Ger Test Positive Height (Feet): 5 Height (Inches): 8.00 Weight (Pounds): 143 General Appearance: lethargic EENT: normal ENT inspection Neck: normal alignment Cardiovascular: normal peripheral pulses, normal rate, regular rhythm Respiratory/Chest: chest wall non-tender, lungs clear, normal breath sounds Abdomen: normal bowel sounds, non tender, soft Extremities: normal inspection Edema: no edema noted Arm (L), no edema noted Arm (R), no edema noted Leg (L), no edema noted Leg (R), no edema noted Pedal (L), no edema noted Pedal (R), no edema noted Generalized Neurologic: motor weakness Skin: normal pigmentation, warm/dry Gato Viveros DO Jul 02, 2019 09:26
--- NOTE | 2019-07-02 09:43 | NUR ---
RADIOLOGY DEPT., CHEST X-RAY DONE.-P.DYE
--- NOTE | 2019-07-02 09:45 | NUR ---
RD ASSESSMENT & RECOMMENDATIONS SEE CARE ACTIVITY FOR COMPLETE ASSESSMENT DAILY ESTIMATED NEEDS: Needs based on Critical care, underweight,TF [place] [employer] 56.8 30-35 kcals/kg 5701-9256 total kcals 1.2-2 g protein/kg 68-114 g total protein 25-30 mL/kg 8589-1067 total fluid mLs NUTRITION DIAGNOSIS: * Increased kcal/prot intake needs R/T sepsis and underweight status as evidenced by pt adm w/ critically elev WBC (35.7*-> now wnl), now afebrile, @ 68% [place] Body Weight. * Swallowing difficulty R/T respiratory status as evidenced by pt vent dep via trach, PEG dep. (CURRENT TF:Osmolite 1.5@65 x18) ENTERAL NUTRITION RECOMMENDATIONS: Osmolite 1.5 @ 60ml/hr x 20 hrs to provide 1200ml, 1800kcal, 75g prot, 914ml free water - Maintain OSMOLITE 1.5, TF to be held for 4 hrs (2 hrs dilantin, 2 hrs synthroid administered as separate times). - Hold 1 hr before and after Synthroid and dilantin meds. TF to run max 20hrs. - Flush per MD/ HOB >30 degrees. Feed at goal w/ hemodynamic stability, otherwise trophic feeds of 5-10ml/hr to maintain gut integrity. ADDITIONAL RECOMMENDATIONS: * Calibrated bedscale weight for accurate CBW + weekly wt monitoring * Per SNF: Ht of 6'1", Wt 125# (05/2019) * Monitor lytes closely, replete as needed (K elev upon adm, monitor closely, need for TF change-> now wnl) * Monitor BGs closely w/ TF * Add JOYCELYN BID w/ TF order for wound care .
--- NOTE | 2019-07-02 09:48 | Pulmonolgy Critical Care Note ---
Critical Care - Asmt/Plan Problems: (1) Septic shock (2) Pyelonephritis (3) Chronic respiratory failure (4) Alzheimer's dementia (5) Severe erosive esophagitis (6) Feeding by G-tube (7) Diabetes (8) CVA (cerebral vascular accident) Respiratory: monitor respiratory rate, adjust FIO2, CXR Cardiac: continue to monitor HR/BP Renal: F/U I&O, keep IV fluid, check electrolytes Infectious Disease: check cultures, continue antibiotics Gastrointestinal: continue feedings/current rate Endocrine: monitor blood sugar, check TSH, check HgA1C Hematologic: transfuse if hgb<8.5 Neurologic: PRN Ativan, keep patient comfortable Affect: PRN ativan Prophylaxis: Protonix Notes Reviewed: cardio, 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 with: nurses, nurse case managementarea 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 - Objective Last 24 Hour Vital Signs Date Time Temp Pulse Resp B/P (MAP) Pulse Ox O2 Delivery O2 Flow Rate FiO2 07/02/19 08:54 74 17 35 07/02/19 08:00 77 07/02/19 08:00 Mechanical Ventilator 07/02/19 08:00 35 07/02/19 07:45 74 16 123/98 (106) 100 07/02/19 07:30 74 16 128/56 (80) 100 07/02/19 07:20 73 16 35 07/02/19 07:15 75 18 125/55 (78) 100 07/02/19 07:00 74 17 110/50 (70) 100 07/02/19 06:45 79 18 131/59 (83) 100 07/02/19 06:43 78 18 121/65 (83) 100 07/02/19 06:38 87/43 07/02/19 06:30 71 16 87/43 (58) 99 07/02/19 06:00 78 16 107/54 (71) 100 07/02/19 06:00 107/54 07/02/19 05:30 77 17 119/55 (76) 100 07/02/19 05:15 79 19 35 07/02/19 05:00 80 18 115/58 (77) 100 07/02/19 05:00 115/58 07/02/19 04:34 114/66 07/02/19 04:30 82 16 114/66 (82) 100 07/02/19 04:00 35 07/02/19 04:00 115/65 07/02/19 04:00 Mechanical Ventilator 07/02/19 04:00 97.8 82 19 115/65 (82) 100 07/02/19 03:46 83 07/02/19 03:30 82 16 126/60 (82) 100 07/02/19 03:00 101/54 07/02/19 03:00 79 18 101/54 (70) 99 07/02/19 02:31 81 18 35 07/02/19 02:30 80 19 124/59 (80) 99 07/02/19 02:00 119/60 07/02/19 02:00 83 18 119/60 (79) 99 07/02/19 01:30 87 19 128/80 (96) 99 07/02/19 01:00 85 16 132/54 (80) 100 07/02/19 00:55 87 21 35 07/02/19 00:30 83 19 123/59 (80) 99 07/02/19 00:00 35 07/02/19 00:00 99.3 84 20 125/71 (89) 99 07/02/19 00:00 125/71 07/02/19 00:00 Mechanical Ventilator 07/01/19 23:30 82 19 129/62 (84) 99 07/01/19 23:08 84 07/01/19 23:06 84 18 35 07/01/19 23:00 82 23 127/64 (85) 98 07/01/19 23:00 127/64 07/01/19 22:30 87 19 117/59 (78) 98 07/01/19 22:00 90 15 128/61 (83) 88 07/01/19 22:00 128/61 07/01/19 21:30 82 14 103/48 (66) 100 07/01/19 21:00 81 18 110/44 (66) 100 07/01/19 21:00 110/44 07/01/19 20:56 83 17 35 07/01/19 20:30 85 16 113/47 (69) 99 07/01/19 20:00 Mechanical Ventilator 07/01/19 20:00 117/44 07/01/19 20:00 35 07/01/19 20:00 99.1 84 14 117/44 (68) 100 07/01/19 19:30 81 17 95/43 (60) 99 07/01/19 19:25 80 07/01/19 19:00 107/53 07/01/19 19:00 84 17 107/53 (71) 99 07/01/19 18:45 86 17 119/46 (70) 100 07/01/19 18:42 84 21 35 07/01/19 18:30 84 17 121/59 (79) 99 07/01/19 18:30 121/59 07/01/19 18:15 85 17 124/45 (71) 99 07/01/19 18:00 88 15 116/46 (69) 100 07/01/19 18:00 116/46 07/01/19 17:45 85 18 123/78 (93) 99 07/01/19 17:30 118/60 07/01/19 17:30 80 18 118/60 (79) 100 07/01/19 17:19 83 22 35 07/01/19 17:17 78 16 109/57 (74) 100 07/01/19 17:00 79 16 115/47 (69) 100 07/01/19 17:00 115/47 07/01/19 16:45 79 17 112/57 (75) 100 07/01/19 16:30 79 17 120/43 (68) 100 07/01/19 16:30 120/43 07/01/19 16:15 79 17 117/56 (76) 100 07/01/19 16:00 Mechanical Ventilator 07/01/19 16:00 87/40 07/01/19 16:00 80 07/01/19 16:00 30 07/01/19 16:00 75 16 87/40 (56) 99 07/01/19 15:45 79 17 105/42 (63) 99 07/01/19 15:30 79 17 103/45 (64) 99 07/01/19 15:15 79 18 107/49 (68) 100 07/01/19 15:06 71 16 35 07/01/19 15:00 78 18 99/44 (62) 99 07/01/19 14:45 77 16 98/43 (61) 100 07/01/19 14:30 81 16 105/43 (63) 100 07/01/19 14:30 105/43 07/01/19 14:15 83 16 116/51 (72) 99 07/01/19 14:00 115/44 07/01/19 14:00 81 21 115/44 (67) 99 07/01/19 13:45 86 20 116/47 (70) 99 07/01/19 13:30 79 18 116/47 (70) 100 07/01/19 13:29 87 21 35 07/01/19 13:15 77 16 116/53 (74) 99 07/01/19 13:00 98/52 07/01/19 13:00 70 17 98/52 (67) 99 07/01/19 12:45 68 17 90/46 (61) 99 07/01/19 12:30 126/64 07/01/19 12:15 97.9 73 16 123/59 (80) 100 07/01/19 12:00 Mechanical Ventilator 07/01/19 12:00 115/51 07/01/19 12:00 76 17 115/51 (72) 99 07/01/19 12:00 30 07/01/19 12:00 66 07/01/19 11:45 76 17 130/65 (86) 99 07/01/19 11:30 119/57 07/01/19 11:30 70 17 119/57 (77) 100 07/01/19 11:23 72 16 35 07/01/19 11:15 87/40 07/01/19 11:15 63 16 87/40 (56) 99 07/01/19 11:00 96/47 07/01/19 11:00 69 18 96/47 (63) 100 07/01/19 10:45 64 16 108/52 (70) 100 07/01/19 10:45 108/52 07/01/19 10:30 68 17 103/46 (65) 100 07/01/19 10:30 103/46 07/01/19 10:15 64 16 98/45 (62) 100 07/01/19 10:15 98/45 07/01/19 10:10 61 16 77/37 (50) 99 07/01/19 10:10 77/37 07/01/19 10:05 63 16 90/40 (57) 100 07/01/19 10:00 70/32 07/01/19 10:00 63 16 70/32 (45) 99 Status: awake Condition: grave HEENT: atraumatic Neck: full ROM Lungs: clear Heart: HR/BP stable Abdomen: soft, active bowel sounds Extremities: no C/C/E, edema Micro: Microbiology Date/Time Source Procedure Growth Status 06/30/19 16:45 Blood Blood Culture - Preliminary NO GROWTH AFTER 24 HOURS Resulted 06/30/19 16:30 Blood Blood Culture - Preliminary NO GROWTH AFTER 24 HOURS Resulted 07/01/19 05:45 Sputum Induced Gram Stain Pending Resulted 07/01/19 05:45 Sputum Culture - Preliminary Gram Negative Bacillus 1 Resulted 06/30/19 13:40 Urine,Clean Catch Urine Culture - Preliminary YEAST Resulted Critical Care - Subjective ROS Limited/Unobtainable: Yes Condition: critical EKG Rhythm: Sinus Rhythm FI02: 35 Vent Support Breath Rate: 16 Vent Support Mode: AC Vent Tidal Volume: 600 Sputum Amount: Moderate PEEP: 0.0 PIP: 36 Tube Feeding Amount: 0 I&O: Intake and Output 07/01/19 07/02/19 19:00 07:00 Intake Total 2362.365 ml 1519.0 ml Output Total 1590 ml 1910 ml Balance 772.365 ml -391.0 ml Intake Free Water 120 ml IV Total 1527.365 ml 634.0 ml Tube Feeding 715 ml 685 ml Other 200 ml Output Urine Total 1590 ml 1910 ml Labs: Laboratory Tests Test 07/02/19 04:45 07/02/19 07:47 White Blood Count 6.2 K/UL (4.8-10.8) Red Blood Count 2.71 M/UL (4.70-6.10) L Hemoglobin 7.5 G/DL (14.2-18.0) L Hematocrit 23.5 % (42.0-52.0) L Mean Corpuscular Volume 87 FL (80-99) Mean Corpuscular Hemoglobin 27.8 PG (27.0-31.0) Mean Corpuscular Hemoglobin Concent 32.1 G/DL (32.0-36.0) Red Cell Distribution Width 15.9 % (11.6-14.8) H Platelet Count 302 K/UL (150-450) Mean Platelet Volume 7.5 FL (6.5-10.1) Neutrophils (%) (Auto) % (45.0-75.0) Lymphocytes (%) (Auto) % (20.0-45.0) Monocytes (%) (Auto) % (1.0-10.0) Eosinophils (%) (Auto) % (0.0-3.0) Basophils (%) (Auto) % (0.0-2.0) Sodium Level 144 MMOL/L (136-145) Potassium Level 4.3 MMOL/L (3.5-5.1) Chloride Level 112 MMOL/L (98-107) H Carbon Dioxide Level 24 MMOL/L (21-32) Anion Gap 8 mmol/L (5-15) Blood Urea Nitrogen 18 mg/dL (7-18) Creatinine 1.3 MG/DL (0.55-1.30) Estimat Glomerular Filtration Rate 54.6 mL/min (>60) Glucose Level 104 MG/DL (74-106) Calcium Level 8.2 MG/DL (8.5-10.1) L Phosphorus Level 2.7 MG/DL (2.5-4.9) Magnesium Level 1.8 MG/DL (1.8-2.4) Total Bilirubin 0.2 MG/DL (0.2-1.0) Aspartate Amino Transf (AST/SGOT) 13 U/L (15-37) L Alanine Aminotransferase (ALT/SGPT) 24 U/L (12-78) Alkaline Phosphatase 170 U/L (46-116) H C-Reactive Protein, Quantitative 9.1 mg/dL (0.00-0.90) H Pro-B-Type Natriuretic Peptide 59422 pg/mL (0-125) H Total Protein 5.9 G/DL (6.4-8.2) L Albumin 2.2 G/DL (3.4-5.0) L Globulin 3.7 g/dL Albumin/Globulin Ratio 0.6 (1.0-2.7) L Arterial Blood pH 7.435 (7.350-7.450) Arterial Blood Partial Pressure CO2 35.6 mmHg (35.0-45.0) Arterial Blood Partial Pressure O2 119.7 mmHg (75.0-100.0) H Arterial Blood HCO3 23.4 mmol/L (22.0-26.0) Arterial Blood Oxygen Saturation 98.3 % (95-100) Arterial Blood Base Excess -0.7 (-2-2) Ger Test Positive Huma Keating MD Jul 02, 2019 09:48
--- NOTE | 2019-07-02 10:34 | NUR ---
NURSE NOTES: Blood pressure fluctuates from 85 systolic to 120 systolic. Patient remains on Levophed 1mL/hr at this time. Will continue to monitor. Patient has copious oral secretion at this time. Secretions heard audibly in the throat. Patient unable to cough it out. Nasal suction performed using aseptic technique. Clear frothy secretion noted. Secretions blood tinged from irritation of nasal passage. Patient oral suction and tracheal suction also performed at this time. Will continue to monitor and suction as needed.
--- NOTE | 2019-07-02 12:44 | NUR ---
NURSE NOTES: Patient remains closed. Blood pressure 121/53, HR 70, SpO2 100%, and temp 98.5. Ventilator setting remains AC 16, tidal volume 600, FiO2 35%, and PEEP 0. Patient tolerating ventilator setting with no sign of acute distress with RR of 16 and SpO2 100%. Patient continues to have copious oral secretions. Secretions foamy white in color. Oral and tracheal suction performed at this time. Rhonchi heard in all four quadrants. Gastrostomy tube remains in left upper quadrant of abdomen with cellulitis noted around G tube site in addition to on left arm. Tube feeding of Osmolite 1.5 at 60mL/hr at this time. Victor catheter remains patent, asymptomatic, and draining pale/clear yellow urine at this time. Patient remains on low air loss mattress. Wounds remain covered with optifoam dressing. PICC line on left upper arm remains patent, asymptomatic, and running D5 0.9%NS at 100mL/hr and Levophed at 1mL/hr at this time. Will continue to monitor blood pressure and titrate patient off of Levophed when it is safe to do so. Patient bed in low position with bed alarm on and call light in reach at this time. Oral care and repositioning done at this time.
--- NOTE | 2019-07-02 12:54 | NUR ---
*-* INSURANCE *-* [facility]INICALS AND REVIEWS HAVE BEEN FAXED TO: TYSHAWN DUDLEY:[employer]
--- NOTE | 2019-07-02 13:10 | Nephrology Progress Note ---
Assessment/Plan Problem List: (1) Septic shock (2) Hypothyroidism (3) Upper GI bleed (4) Respiratory failure, [id number] (5) Anemia Assessment Sepsis Shock on pressors GI Bleed Low Na and high K UTI HypoThyroidism Tracheostomy dependence Respiratory failure, [id number] Alzheimer's Feeding by G-tube Plan monitor dilantin and phenobarb level Albumin bolus as Cr rising consider transfusion as needed On Midodrine On GT feeding fluid challenge as needed adjust IV fluids transfuse as needed Monitor lytes and renal parametrs urine studies per orders Subjective ROS Limited/Unobtainable: Yes Objective Objective Last 24 Hour Vital Signs Date Time Temp Pulse Resp B/P (MAP) Pulse Ox O2 Delivery O2 Flow Rate FiO2 07/02/19 12:49 70 16 35 07/02/19 12:00 Mechanical Ventilator 07/02/19 12:00 35 07/02/19 12:00 98.5 65 17 122/50 (74) 99 07/02/19 12:00 75 07/02/19 11:27 77 20 35 07/02/19 11:00 74 17 112/51 (71) 99 07/02/19 11:00 112/51 07/02/19 10:30 73 16 125/58 (80) 100 07/02/19 10:00 82/42 07/02/19 10:00 71 16 82/42 (55) 100 07/02/19 09:30 69 16 111/47 (68) 99 07/02/19 09:00 119/60 07/02/19 09:00 72 16 119/60 (79) 100 07/02/19 08:54 74 17 35 07/02/19 08:30 74 16 121/71 (88) 100 07/02/19 08:30 121/71 07/02/19 08:00 77 07/02/19 08:00 98.6 74 16 123/98 (106) 100 07/02/19 08:00 Mechanical Ventilator 07/02/19 08:00 123/98 07/02/19 08:00 35 07/02/19 07:45 74 16 123/98 (106) 100 07/02/19 07:30 74 16 128/56 (80) 100 07/02/19 07:30 128/56 07/02/19 07:20 73 16 35 07/02/19 07:15 125/55 07/02/19 07:15 75 18 125/55 (78) 100 07/02/19 07:00 74 17 110/50 (70) 100 07/02/19 06:45 79 18 131/59 (83) 100 07/02/19 06:43 78 18 121/65 (83) 100 07/02/19 06:38 87/43 07/02/19 06:30 71 16 87/43 (58) 99 07/02/19 06:00 78 16 107/54 (71) 100 07/02/19 06:00 107/54 07/02/19 05:30 77 17 119/55 (76) 100 07/02/19 05:15 79 19 35 07/02/19 05:00 80 18 115/58 (77) 100 07/02/19 05:00 115/58 07/02/19 04:34 114/66 07/02/19 04:30 82 16 114/66 (82) 100 07/02/19 04:00 35 07/02/19 04:00 115/65 07/02/19 04:00 Mechanical Ventilator 07/02/19 04:00 97.8 82 19 115/65 (82) 100 07/02/19 03:46 83 07/02/19 03:30 82 16 126/60 (82) 100 07/02/19 03:00 101/54 07/02/19 03:00 79 18 101/54 (70) 99 07/02/19 02:31 81 18 35 07/02/19 02:30 80 19 124/59 (80) 99 07/02/19 02:00 119/60 07/02/19 02:00 83 18 119/60 (79) 99 07/02/19 01:30 87 19 128/80 (96) 99 07/02/19 01:00 85 16 132/54 (80) 100 07/02/19 00:55 87 21 35 07/02/19 00:30 83 19 123/59 (80) 99 07/02/19 00:00 35 07/02/19 00:00 99.3 84 20 125/71 (89) 99 07/02/19 00:00 125/71 07/02/19 00:00 Mechanical Ventilator 07/01/19 23:30 82 19 129/62 (84) 99 07/01/19 23:08 84 07/01/19 23:06 84 18 35 07/01/19 23:00 82 23 127/64 (85) 98 07/01/19 23:00 127/64 07/01/19 22:30 87 19 117/59 (78) 98 07/01/19 22:00 90 15 128/61 (83) 88 07/01/19 22:00 128/61 07/01/19 21:30 82 14 103/48 (66) 100 07/01/19 21:00 81 18 110/44 (66) 100 07/01/19 21:00 110/44 07/01/19 20:56 83 17 35 07/01/19 20:30 85 16 113/47 (69) 99 07/01/19 20:00 Mechanical Ventilator 07/01/19 20:00 117/44 07/01/19 20:00 35 07/01/19 20:00 99.1 84 14 117/44 (68) 100 07/01/19 19:30 81 17 95/43 (60) 99 07/01/19 19:25 80 07/01/19 19:00 107/53 07/01/19 19:00 84 17 107/53 (71) 99 07/01/19 18:45 86 17 119/46 (70) 100 07/01/19 18:42 84 21 35 07/01/19 18:30 84 17 121/59 (79) 99 07/01/19 18:30 121/59 07/01/19 18:15 85 17 124/45 (71) 99 07/01/19 18:00 88 15 116/46 (69) 100 07/01/19 18:00 116/46 07/01/19 17:45 85 18 123/78 (93) 99 07/01/19 17:30 118/60 07/01/19 17:30 80 18 118/60 (79) 100 07/01/19 17:19 83 22 35 07/01/19 17:17 78 16 109/57 (74) 100 07/01/19 17:00 79 16 115/47 (69) 100 07/01/19 17:00 115/47 07/01/19 16:45 79 17 112/57 (75) 100 07/01/19 16:30 79 17 120/43 (68) 100 07/01/19 16:30 120/43 07/01/19 16:15 79 17 117/56 (76) 100 07/01/19 16:00 Mechanical Ventilator 07/01/19 16:00 87/40 07/01/19 16:00 80 07/01/19 16:00 30 07/01/19 16:00 75 16 87/40 (56) 99 07/01/19 15:45 79 17 105/42 (63) 99 07/01/19 15:30 79 17 103/45 (64) 99 07/01/19 15:15 79 18 107/49 (68) 100 07/01/19 15:06 71 16 35 07/01/19 15:00 78 18 99/44 (62) 99 07/01/19 14:45 77 16 98/43 (61) 100 07/01/19 14:30 81 16 105/43 (63) 100 07/01/19 14:30 105/43 07/01/19 14:15 83 16 116/51 (72) 99 07/01/19 14:00 115/44 07/01/19 14:00 81 21 115/44 (67) 99 07/01/19 13:45 86 20 116/47 (70) 99 07/01/19 13:30 79 18 116/47 (70) 100 07/01/19 13:29 87 21 35 07/01/19 13:15 77 16 116/53 (74) 99 Intake and Output 07/01/19 07/02/19 19:00 07:00 Intake Total 2362.365 ml 1519.0 ml Output Total 1590 ml 1910 ml Balance 772.365 ml -391.0 ml Intake Free Water 120 ml IV Total 1527.365 ml 634.0 ml Tube Feeding 715 ml 685 ml Other 200 ml Output Urine Total 1590 ml 1910 ml Laboratory Tests 07/02/19 04:45: White Blood Count 6.2, Red Blood Count 2.71L, Hemoglobin 7.5L, Hematocrit 23.5L , Mean Corpuscular Volume 87, Mean Corpuscular Hemoglobin 27.8, Mean Corpuscular Hemoglobin Concent 32.1, Red Cell Distribution Width 15.9H, Platelet Count 302, Mean Platelet Volume 7.5, Neutrophils (%) (Auto) , Lymphocytes (%) (Auto) , Monocytes (%) (Auto) , Eosinophils (%) (Auto) , Basophils (%) (Auto) , Sodium Level 144, Potassium Level 4.3, Chloride Level 112H, Carbon Dioxide Level 24, Anion Gap 8, Blood Urea Nitrogen 18, Creatinine 1.3, Estimat Glomerular Filtration Rate 54.6, Glucose Level 104, Calcium Level 8.2L, Phosphorus Level 2.7, Magnesium Level 1.8, Total Bilirubin 0.2, Aspartate Amino Transf (AST/SGOT) 13L, Alanine Aminotransferase (ALT/SGPT) 24, Alkaline Phosphatase 170H, C-Reactive Protein, Quantitative 9.1H, Pro-B-Type Natriuretic Peptide 47314U, Total Protein 5.9L, Albumin 2.2L, Globulin 3.7, Albumin/ Globulin Ratio 0.6L 07/02/19 07:47: Arterial Blood pH 7.435, Arterial Blood Partial Pressure CO2 35.6, Arterial Blood Partial Pressure O2 119.7H, Arterial Blood HCO3 23.4, Arterial Blood Oxygen Saturation 98.3, Arterial Blood Base Excess -0.7, Ger Test Positive Height (Feet): 5 Height (Inches): 8.00 Weight (Pounds): 143 General Appearance: no apparent distress EENT: other - vented Respiratory/Chest: decreased breath sounds Abdomen: soft Objective no change Sav Salvador MD Jul 02, 2019 13:10
--- NOTE | 2019-07-02 14:30 | NUR ---
NURSE NOTES: Patient blood pressure 127/70 at this time on levophed 1mL/hr. Will continue to monitor and titrate off levophed if patient BP remains stable. Patient repositioned at this time. Patient continues to have copious oral secretions. No sign of pain or acute distress at this time.
[2019-07-02] MEDS: Vancomycin 1gm/D5W 275ml IVPB SCH ×2 (14:54)
--- NOTE | 2019-07-02 15:06 | Surgery Progress Note ---
Surgery Progress Note Subjective Additional Comments ill appearing in ICU labs noted exam stable prognosis guarded cont with ICU care as directed Objective Last 24 Hour Vital Signs Date Time Temp Pulse Resp B/P (MAP) Pulse Ox O2 Delivery O2 Flow Rate FiO2 07/02/19 15:02 78 21 35 07/02/19 14:00 82 16 90/65 (73) 99 07/02/19 13:00 74 16 129/61 (83) 100 07/02/19 12:49 70 16 35 07/02/19 12:00 Mechanical Ventilator 07/02/19 12:00 35 07/02/19 12:00 98.5 65 17 122/50 (74) 99 07/02/19 12:00 75 07/02/19 11:27 77 20 35 07/02/19 11:00 74 17 112/51 (71) 99 07/02/19 11:00 112/51 07/02/19 10:30 73 16 125/58 (80) 100 07/02/19 10:00 82/42 07/02/19 10:00 71 16 82/42 (55) 100 07/02/19 09:30 69 16 111/47 (68) 99 07/02/19 09:00 119/60 07/02/19 09:00 72 16 119/60 (79) 100 07/02/19 08:54 74 17 35 07/02/19 08:30 74 16 121/71 (88) 100 07/02/19 08:30 121/71 07/02/19 08:00 77 07/02/19 08:00 98.6 74 16 123/98 (106) 100 07/02/19 08:00 Mechanical Ventilator 07/02/19 08:00 123/98 07/02/19 08:00 35 07/02/19 07:45 74 16 123/98 (106) 100 07/02/19 07:30 74 16 128/56 (80) 100 07/02/19 07:30 128/56 07/02/19 07:20 73 16 35 07/02/19 07:15 125/55 07/02/19 07:15 75 18 125/55 (78) 100 07/02/19 07:00 74 17 110/50 (70) 100 07/02/19 06:45 79 18 131/59 (83) 100 07/02/19 06:43 78 18 121/65 (83) 100 07/02/19 06:38 87/43 07/02/19 06:30 71 16 87/43 (58) 99 07/02/19 06:00 78 16 107/54 (71) 100 07/02/19 06:00 107/54 07/02/19 05:30 77 17 119/55 (76) 100 07/02/19 05:15 79 19 35 07/02/19 05:00 80 18 115/58 (77) 100 07/02/19 05:00 115/58 07/02/19 04:34 114/66 07/02/19 04:30 82 16 114/66 (82) 100 07/02/19 04:00 35 07/02/19 04:00 115/65 07/02/19 04:00 Mechanical Ventilator 07/02/19 04:00 97.8 82 19 115/65 (82) 100 07/02/19 03:46 83 07/02/19 03:30 82 16 126/60 (82) 100 07/02/19 03:00 101/54 07/02/19 03:00 79 18 101/54 (70) 99 07/02/19 02:31 81 18 35 07/02/19 02:30 80 19 124/59 (80) 99 07/02/19 02:00 119/60 07/02/19 02:00 83 18 119/60 (79) 99 07/02/19 01:30 87 19 128/80 (96) 99 07/02/19 01:00 85 16 132/54 (80) 100 07/02/19 00:55 87 21 35 07/02/19 00:30 83 19 123/59 (80) 99 07/02/19 00:00 35 07/02/19 00:00 99.3 84 20 125/71 (89) 99 07/02/19 00:00 125/71 07/02/19 00:00 Mechanical Ventilator 07/01/19 23:30 82 19 129/62 (84) 99 07/01/19 23:08 84 07/01/19 23:06 84 18 35 07/01/19 23:00 82 23 127/64 (85) 98 07/01/19 23:00 127/64 07/01/19 22:30 87 19 117/59 (78) 98 10/22/19 22:00 90 15 128/61 (83) 88 07/01/19 22:00 128/61 07/01/19 21:30 82 14 103/48 (66) 100 07/01/19 21:00 81 18 110/44 (66) 100 07/01/19 21:00 110/44 07/01/19 20:56 83 17 35 07/01/19 20:30 85 16 113/47 (69) 99 07/01/19 20:00 Mechanical Ventilator 07/01/19 20:00 117/44 07/01/19 20:00 35 07/01/19 20:00 99.1 84 14 117/44 (68) 100 07/01/19 19:30 81 17 95/43 (60) 99 07/01/19 19:25 80 07/01/19 19:00 107/53 07/01/19 19:00 84 17 107/53 (71) 99 07/01/19 18:45 86 17 119/46 (70) 100 07/01/19 18:42 84 21 35 07/01/19 18:30 84 17 121/59 (79) 99 07/01/19 18:30 121/59 07/01/19 18:15 85 17 124/45 (71) 99 07/01/19 18:00 88 15 116/46 (69) 100 07/01/19 18:00 116/46 07/01/19 17:45 85 18 123/78 (93) 99 07/01/19 17:30 118/60 07/01/19 17:30 80 18 118/60 (79) 100 07/01/19 17:19 83 22 35 07/01/19 17:17 78 16 109/57 (74) 100 07/01/19 17:00 79 16 115/47 (69) 100 07/01/19 17:00 115/47 07/01/19 16:45 79 17 112/57 (75) 100 07/01/19 16:30 79 17 120/43 (68) 100 07/01/19 16:30 120/43 07/01/19 16:15 79 17 117/56 (76) 100 07/01/19 16:00 Mechanical Ventilator 07/01/19 16:00 87/40 07/01/19 16:00 80 10/22/19 16:00 30 07/01/19 16:00 75 16 87/40 (56) 99 07/01/19 15:45 79 17 105/42 (63) 99 07/01/19 15:30 79 17 103/45 (64) 99 07/01/19 15:15 79 18 107/49 (68) 100 07/01/19 15:06 71 16 35 I&O Intake and Output 07/01/19 07/02/19 19:00 07:00 Intake Total 2362.365 ml 1519.0 ml Output Total 1590 ml 1910 ml Balance 772.365 ml -391.0 ml Intake Free Water 120 ml IV Total 1527.365 ml 634.0 ml Tube Feeding 715 ml 685 ml Other 200 ml Output Urine Total 1590 ml 1910 ml Dressing: saturated Wound: other Drains: other Cardiovascular: RSR Respiratory: decreased breath sounds Abdomen: soft, present bowel sounds, non-distended Extremities: no cyanosis, other Laboratory Tests Test 07/02/19 04:45 07/02/19 07:47 White Blood Count 6.2 K/UL (4.8-10.8) Red Blood Count 2.71 M/UL (4.70-6.10) L Hemoglobin 7.5 G/DL (14.2-18.0) L Hematocrit 23.5 % (42.0-52.0) L Mean Corpuscular Volume 87 FL (80-99) Mean Corpuscular Hemoglobin 27.8 PG (27.0-31.0) Mean Corpuscular Hemoglobin Concent 32.1 G/DL (32.0-36.0) Red Cell Distribution Width 15.9 % (11.6-14.8) H Platelet Count 302 K/UL (150-450) Mean Platelet Volume 7.5 FL (6.5-10.1) Neutrophils (%) (Auto) % (45.0-75.0) Lymphocytes (%) (Auto) % (20.0-45.0) Monocytes (%) (Auto) % (1.0-10.0) Eosinophils (%) (Auto) % (0.0-3.0) Basophils (%) (Auto) % (0.0-2.0) Sodium Level 144 MMOL/L (136-145) Potassium Level 4.3 MMOL/L (3.5-5.1) Chloride Level 112 MMOL/L (98-107) H Carbon Dioxide Level 24 MMOL/L (21-32) Anion Gap 8 mmol/L (5-15) Blood Urea Nitrogen 18 mg/dL (7-18) Creatinine 1.3 MG/DL (0.55-1.30) Estimat Glomerular Filtration Rate 54.6 mL/min (>60) Glucose Level 104 MG/DL (74-106) Calcium Level 8.2 MG/DL (8.5-10.1) L Phosphorus Level 2.7 MG/DL (2.5-4.9) Magnesium Level 1.8 MG/DL (1.8-2.4) Total Bilirubin 0.2 MG/DL (0.2-1.0) Aspartate Amino Transf (AST/SGOT) 13 U/L (15-37) L Alanine Aminotransferase (ALT/SGPT) 24 U/L (12-78) Alkaline Phosphatase 170 U/L (46-116) H C-Reactive Protein, Quantitative 9.1 mg/dL (0.00-0.90) H Pro-B-Type Natriuretic Peptide 62267 pg/mL (0-125) H Total Protein 5.9 G/DL (6.4-8.2) L Albumin 2.2 G/DL (3.4-5.0) L Globulin 3.7 g/dL Albumin/Globulin Ratio 0.6 (1.0-2.7) L Arterial Blood pH 7.435 (7.350-7.450) Arterial Blood Partial Pressure CO2 35.6 mmHg (35.0-45.0) Arterial Blood Partial Pressure O2 119.7 mmHg (75.0-100.0) H Arterial Blood HCO3 23.4 mmol/L (22.0-26.0) Arterial Blood Oxygen Saturation 98.3 % (95-100) Arterial Blood Base Excess -0.7 (-2-2) Ger Test Positive Plan Problems: (1) Severe protein-calorie malnutrition Assessment & Plan: DAILY ESTIMATED NEEDS: Needs based on Critical care, underweight TF 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 * Swallowing difficulty R/T respiratory status as evidenced by pt vent dep via trach, PEG dep. ENTERAL NUTRITION RECOMMENDATIONS: Nepro @45mL/hr x 22hr to provide 990mL, 1782kcal, 80g pro, 720mL free water -When Hemodynamically stable, start Nepro @ 15mL/hr for 6 hrs. -Advance as tolerated 10mL q 4-6 hrs to goal. -TF @goal meets 100% est needs. -Flush per MD/ HOB >30 degrees. ADDITIONAL RECOMMENDATIONS: * Calibrated bedscale weight for accurate CBW + weekly wt monitoring * Per SNF: Ht of 6'1", Wt 125# (05/2019) * TF recs as above when medically stable * Monitor for cont'd need of renal formula (K 5.5) * Monitor lytes and hydration status. (2) Feeding by G-tube Assessment & Plan: g tube changed (3) Respiratory failure, kmknq-[id number]-cezbity (4) Septic shock Assessment & Plan: Acute decline with hypertension tachycardia now on pressors Labs as above Detailed examination done and abdominal distention noted. kub okay cxr noted exam stable will follow with recs thank you (5) Severe sepsis (6) GT SITE LEAKING Assessment & Plan: Patient identified worsening G-tube site leakage and cellulitis. This has been noted on prior admissions which is cared for. Plan for placement as below Pt presents with contractures. Skin erosions to abdominal region, and multiple areas of non-blanching erythema. Skin erosion noted to abdomen extending around GT and mostly to L abdominal area, skin is grossly red and excoriated. Furuncle noted to L flank oozing moderate amt purulent exudate. Non-blanchable erythema without fluctuance noted to L lateral malleolus (L) 1.5cm x (W)3cm. Non-blanchable erythema without fluctuance noted to lateral L foot (L)1cm x (W) 1cm. Non-blanchable erythema noted to sacral cleft. No other skin concerns noted. Tx.Plan: Apply Zinc Oxide Paste to GT site and excoriated areas on abd daily and prn. Apply Betadine to Boil L flank Daily .Cover with Optifoam drsg. Change daily and prn. Apply Moisture Barrier Paste to sacrum. Cover with Optifoam drsg. Change every 3 days and prn. Apply Cavilon to Non-blanchable areas L foot and bilat heels. Cover each site with Optifoam drsg. Change every 7 days and prn. Reposition at least every 2hours or as tolerated. Place pillow between knees. Off-load heels with pillow. APM/RENO Mattress overlay. Quirino Bernard Jul 02, 2019 15:06
--- NOTE | 2019-07-02 16:00 | NUR ---
NURSE NOTES: Patient remains closed. Blood pressure 123/56, HR 77, SpO2 100%, and temp 98.6. Ventilator setting remains AC 16, tidal volume 600, FiO2 35%, and PEEP 0. Patient tolerating ventilator setting with no sign of acute distress with RR of 19 and SpO2 100%. Patient continues to have copious oral secretions. Secretions foamy white in color. Oral and tracheal suction performed at this time. Rhonchi heard in all four quadrants. Gastrostomy tube remains in left upper quadrant of abdomen with cellulitis noted around G tube site in addition to on left arm. Tube feeding of Osmolite 1.5 at 60mL/hr at this time. Victor catheter remains patent, asymptomatic, and draining pale/clear yellow urine at this time. Patient remains on low air loss mattress. Wounds remain covered with optifoam dressing. PICC line on left upper arm remains patent, asymptomatic, and running D5 0.9%NS at 100mL/hr and Levophed at 1mL/hr at this time. Will continue to monitor blood pressure and titrate patient off of Levophed when it is safe to do so. Patient bed in low position with bed alarm on and call light in reach at this time. Oral care, bed bath, and repositioning done at this time.
--- NOTE | 2019-07-02 17:47 | NUR ---
Vanco level of 37.8 is not an accurate trough. Vancomycin infusing as level was being drawn drawn. Repeat tomorrow prior to next dose to assess trough level. Phan Wilcox, Pharm.D.
--- NOTE | 2019-07-02 18:27 | NUR ---
NURSE NOTES: Blood pressure 112/48 at this time, 71 heart rate, SpO2 99% on ventilator with RR of 19 at this time. patient showing no sign of acute distress at this time. Patient cleaned, repositioned, and oral care performed at this time. Patient remains on Levophed 1mL/hr at this time patient blood pressure fluctuates between 80 systolic and 120 systolic. Will continue to monitor. Dr Gaffney ordered for continuous EEG. dispensary technician called by charge nurse and the telemetry technician reported that continuous EEG is not possible at this hospital. Dr Gaffney made aware at this time as he is still on the unit. Patient bed in low position with bed alarm transmission tester light in reach at this time. Arms and heels floated. Oral care performed. bed bath performed.
--- NOTE | 2019-07-02 18:41 | NUR ---
RESPIRATORY NOTE: Received pt on AC 16, 600VT, 35%, no PEEP. Pt is trach-dependent w/ a cuffed, Portex 8 tube. Pt flat effect, responds to stimuli. B/S nora. rhonchi, sxn small amounts of thin/frothy, pale-yellow secretions Vent plugged into red outlet, ambubag at bedside. Pt in no apparent distress at this time. Will continue to monitor pt.
--- NOTE | 2019-07-02 19:14 | NUR ---
HAND-OFF: Report given to ODILIA Dumas. Patiet vital signs stable. Endorsed to follow up.
[2019-07-02] MEDS ORDERED: Phenytoin 500 MG in NS 110 ML IVPB ONE (19:30)
--- NOTE | 2019-07-02 19:35 | NUR ---
NURSE NOTES: PATIENT ASLEEP STATUS, RESPONSE TO TACTILE STIMULI, ON TRACH TO VENT, AC 16/TV 600/FIO2 35%/ NO PEEP, O2 SATURATION 99% NOTED, ABDOMEN SOFT, NON TENDER, NO BOWEL MOVEMENT STATUS, G TUBE INTACT AND PATENT, ONGOING OSMOLITE 1.5 AT 60ML/HR, RESIDUE 30ML NOTED, KEPT HOB OVER 30 DEGREES, F/C INTACT AND PATENT, YELLOW URINE OUTED GRAVITY, PICC LINE TO LEFT UPPER ARM, INTACT AND PATENT, ONGOING D5W NS AT 50ML/HR VIA PICC LINE, ON P200 BED, KEPT SZ PRECAUTION, ON BED ALARM AND LOCKED, MADE LOWER BED POSITION, WILL CONTINUE TO MONITOR.
[2019-07-02] MEDS: levETIRAcetam 1,000mg/NS100ml 100 ML IVPB SCH ×2 (19:45→20:14)
[2019-07-02] MEDS: Dyna-Hex 2% Top Sol 2oz TOPIC SCH (19:45)
--- NOTE | 2019-07-02 20:18 | Diagnostic Imaging Report ---
Indication: Reason For Exam: [id number] Technique: Single AP view of the chest. Comparison: Chest radiograph dated 07/01/2019 Findings: The cardiomediastinal silhouette is unchanged. No significant change in layering moderate bilateral pleural effusions. Stable interstitial edema. Persistent bibasilar airspace opacities. Redemonstration of diffuse peribronchial thickening. No acute osseous abnormality. Unchanged cannulated tracheostomy. IMPRESSION: 1. Interstitial edema with moderate bilateral layering pleural effusions, grossly unchanged. 2. Bibasilar airspace opacities which likely represent combination of pleural fluid and atelectasis, but pneumonia should be excluded clinically.
--- NOTE | 2019-07-02 20:20 | NUR ---
NURSE NOTES: SEEN THE PATIENT BY DR. YU, NO NEW ORDER STATUS.
--- NOTE | 2019-07-02 20:24 | Cardiology Progress Note ---
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 no off pressor Subjective ROS Limited/Unobtainable: Yes Objective Last 24 Hour Vital Signs Date Time Temp Pulse Resp B/P (MAP) Pulse Ox O2 Delivery O2 Flow Rate FiO2 07/02/19 20:00 35 07/02/19 20:00 98.5 78 19 123/58 (79) 100 07/02/19 19:30 75 17 147/70 (95) 100 07/02/19 19:00 70 18 143/52 (82) 100 07/02/19 18:58 143/55 07/02/19 18:39 78 17 35 07/02/19 18:00 74 18 112/49 (70) 99 07/02/19 18:00 112/49 07/02/19 17:00 123/56 07/02/19 17:00 75 19 120/46 (70) 99 07/02/19 16:41 80 26 35 07/02/19 16:00 98.6 77 17 134/64 (87) 99 07/02/19 16:00 125/59 07/02/19 16:00 35 07/02/19 16:00 Mechanical Ventilator 07/02/19 16:00 74 07/02/19 15:02 78 21 35 07/02/19 15:00 78 18 125/59 (81) 99 07/02/19 15:00 126/64 07/02/19 14:00 82 16 90/65 (73) 99 07/02/19 14:00 117/51 07/02/19 13:00 74 16 129/61 (83) 100 07/02/19 13:00 120/50 07/02/19 12:49 70 16 35 07/02/19 12:00 Mechanical Ventilator 07/02/19 12:00 35 07/02/19 12:00 98.5 65 17 122/50 (74) 99 07/02/19 12:00 124/43 07/02/19 12:00 75 07/02/19 11:27 77 20 35 07/02/19 11:00 74 17 112/51 (71) 99 07/02/19 11:00 112/51 07/02/19 10:30 73 16 125/58 (80) 100 07/02/19 10:00 82/42 07/02/19 10:00 71 16 82/42 (55) 100 07/02/19 09:30 69 16 111/47 (68) 99 07/02/19 09:00 119/60 07/02/19 09:00 72 16 119/60 (79) 100 07/02/19 08:54 74 17 35 07/02/19 08:30 74 16 121/71 (88) 100 07/02/19 08:30 121/71 07/02/19 08:00 77 07/02/19 08:00 98.6 74 16 123/98 (106) 100 07/02/19 08:00 Mechanical Ventilator 07/02/19 08:00 123/98 07/02/19 08:00 35 07/02/19 07:45 74 16 123/98 (106) 100 07/02/19 07:30 74 16 128/56 (80) 100 07/02/19 07:30 128/56 07/02/19 07:20 73 16 35 07/02/19 07:15 125/55 07/02/19 07:15 75 18 125/55 (78) 100 07/02/19 07:00 74 17 110/50 (70) 100 07/02/19 06:45 79 18 131/59 (83) 100 07/02/19 06:43 78 18 121/65 (83) 100 07/02/19 06:38 87/43 07/02/19 06:30 71 16 87/43 (58) 99 07/02/19 06:00 78 16 107/54 (71) 100 07/02/19 06:00 107/54 07/02/19 05:30 77 17 119/55 (76) 100 07/02/19 05:15 79 19 35 07/02/19 05:00 80 18 115/58 (77) 100 07/02/19 05:00 115/58 07/02/19 04:34 114/66 07/02/19 04:30 82 16 114/66 (82) 100 07/02/19 04:00 35 07/02/19 04:00 115/65 07/02/19 04:00 Mechanical Ventilator 07/02/19 04:00 97.8 82 19 115/65 (82) 100 07/02/19 03:46 83 07/02/19 03:30 82 16 126/60 (82) 100 07/02/19 03:00 101/54 07/02/19 03:00 79 18 101/54 (70) 99 07/02/19 02:31 81 18 35 07/02/19 02:30 80 19 124/59 (80) 99 07/02/19 02:00 119/60 07/02/19 02:00 83 18 119/60 (79) 99 07/02/19 01:30 87 19 128/80 (96) 99 07/02/19 01:00 85 16 132/54 (80) 100 07/02/19 00:55 87 21 35 07/02/19 00:30 83 19 123/59 (80) 99 07/02/19 00:00 35 07/02/19 00:00 99.3 84 20 125/71 (89) 99 07/02/19 00:00 125/71 07/02/19 00:00 Mechanical Ventilator 07/01/19 23:30 82 19 129/62 (84) 99 07/01/19 23:08 84 07/01/19 23:06 84 18 35 07/01/19 23:00 82 23 127/64 (85) 98 07/01/19 23:00 127/64 07/01/19 22:30 87 19 117/59 (78) 98 07/01/19 22:00 90 15 128/61 (83) 88 07/01/19 22:00 128/61 07/01/19 21:30 82 14 103/48 (66) 100 07/01/19 21:00 81 18 110/44 (66) 100 07/01/19 21:00 110/44 07/01/19 20:56 83 17 35 07/01/19 20:30 85 16 113/47 (69) 99 General Appearance: no apparent distress, on vent, patient on isolation Neck: supple Cardiovascular: normal rate Respiratory/Chest: lungs clear Abdomen: normal bowel sounds, non tender, soft Extremities: moderate edema Intake and Output 07/01/19 07/02/19 19:00 07:00 Intake Total 2362.365 ml 1519.0 ml Output Total 1590 ml 1910 ml Balance 772.365 ml -391.0 ml Intake Free Water 120 ml IV Total 1527.365 ml 634.0 ml Tube Feeding 715 ml 685 ml Other 200 ml Output Urine Total 1590 ml 1910 ml Laboratory Tests Test 07/02/19 04:45 07/02/19 07:47 07/02/19 16:49 White Blood Count 6.2 K/UL (4.8-10.8) Red Blood Count 2.71 M/UL (4.70-6.10) L Hemoglobin 7.5 G/DL (14.2-18.0) L Hematocrit 23.5 % (42.0-52.0) L Mean Corpuscular Volume 87 FL (80-99) Mean Corpuscular Hemoglobin 27.8 PG (27.0-31.0) Mean Corpuscular Hemoglobin Concent 32.1 G/DL (32.0-36.0) Red Cell Distribution Width 15.9 % (11.6-14.8) H Platelet Count 302 K/UL (150-450) Mean Platelet Volume 7.5 FL (6.5-10.1) Neutrophils (%) (Auto) % (45.0-75.0) Lymphocytes (%) (Auto) % (20.0-45.0) Monocytes (%) (Auto) % (1.0-10.0) Eosinophils (%) (Auto) % (0.0-3.0) Basophils (%) (Auto) % (0.0-2.0) Sodium Level 144 MMOL/L (136-145) Potassium Level 4.3 MMOL/L (3.5-5.1) Chloride Level 112 MMOL/L (98-107) H Carbon Dioxide Level 24 MMOL/L (21-32) Anion Gap 8 mmol/L (5-15) Blood Urea Nitrogen 18 mg/dL (7-18) Creatinine 1.3 MG/DL (0.55-1.30) Estimat Glomerular Filtration Rate 54.6 mL/min (>60) Glucose Level 104 MG/DL (74-106) Calcium Level 8.2 MG/DL (8.5-10.1) L Phosphorus Level 2.7 MG/DL (2.5-4.9) Magnesium Level 1.8 MG/DL (1.8-2.4) Total Bilirubin 0.2 MG/DL (0.2-1.0) Aspartate Amino Transf (AST/SGOT) 13 U/L (15-37) L Alanine Aminotransferase (ALT/SGPT) 24 U/L (12-78) Alkaline Phosphatase 170 U/L (46-116) H C-Reactive Protein, Quantitative 9.1 mg/dL (0.00-0.90) H Pro-B-Type Natriuretic Peptide 77389 pg/mL (0-125) H Total Protein 5.9 G/DL (6.4-8.2) L Albumin 2.2 G/DL (3.4-5.0) L Globulin 3.7 g/dL Albumin/Globulin Ratio 0.6 (1.0-2.7) L Arterial Blood pH 7.435 (7.350-7.450) Arterial Blood Partial Pressure CO2 35.6 mmHg (35.0-45.0) Arterial Blood Partial Pressure O2 119.7 mmHg (75.0-100.0) H Arterial Blood HCO3 23.4 mmol/L (22.0-26.0) Arterial Blood Oxygen Saturation 98.3 % (95-100) Arterial Blood Base Excess -0.7 (-2-2) Ger Test Positive Vancomycin Level Trough 38.7 ug/mL (5.0-12.0) H Microbiology Date/Time Source Procedure Growth Status 06/30/19 16:45 Blood Blood Culture - Preliminary NO GROWTH AFTER 24 HOURS Resulted 06/30/19 16:30 Blood Blood Culture - Preliminary NO GROWTH AFTER 24 HOURS Resulted 07/01/19 05:45 Sputum Induced Gram Stain - Final Resulted 07/01/19 05:45 Sputum Culture - Preliminary Gram Negative Bacillus 1 Resulted 06/30/19 13:40 Urine,Clean Catch Urine Culture - Preliminary YEAST Resulted Javier Ponce MD Jul 02, 2019 20:24
--- NOTE | 2019-07-02 20:33 | Hematology/Onc Progress Note ---
Assessment/Plan Assessment/Plan ASSESSMENT/RECOMMENDATIONS # Anemia of chronic disease due to underlying chronic medical issues, multifactorial --> Anemia w/u has been reviewed and c/w acd ferritin 635, tibc 160 --> No evidence of hemolysis is noted, peripheral smear has been reviewed. --> Hgb goal >7. Transfuse prn. --> Epogen or iron at this time is not particularly indicated --> unable to obtain consent, with no family --> r/o hemolysis as well --> hgb 7.5-->8-->8.7-->8.2-->7.8-->8-->7.4-->8.8-->8.3-->8->9.5->8.2-->7.5 --> 06/26: EGD/COLO with diverticulosis --> spep is negative for bands # Leukocytosis. Likely related to underlying infection versus reactive process. patient with septic shock on admission --> Peripheral has been reviewed--> rouleaux formation on smear --> Medications have been reviewed --> Imaging has been reviewed. CXR shows Suboptimal positioning. No interval consolidation, overt edema or other acute cardiopulmonary findings. --> urine culture with ++uti on cultures provedencia --> Has been started on abx, empiric treatment (ertap/vanc)--> Levo--> vanc/ cefepime --> wbc is 36-->26k-->9k-->11.6-->6.3 # Thrombocytopenia decreased since admission --> plt count 190-->123k-->101k-->95k-->93k-->120k-->249k --> abx for id # Coagulopathy with elev ptt --> may be due to vit k deficiency, less likely inhibitor --> vit K prn basis sq/iv # Septic shock poa --> on abx per id --> initially on pressors, now off # Upper GI vomiting bleed in prior admission --> currently appears to have resolved # Trach and PEG --> chronic # Hyperkalemia --> as per renal # POOR prognosis # Dvt ppx heparin sq (ON HOLD for potential bleed) The timing of this note does not necessarily reflect the time of the patient was seen. Greatly appreciate consultation. Subjective Constitutional: Denies: no symptoms, chills, fever, malaise, weakness, other HEENT: Denies: no symptoms, eye pain, blurred vision, tearing, double vision, ear pain, ear discharge, nose pain, nose congestion, throat pain, throat swelling, mouth pain, mouth swelling, other Allergies: Coded Allergies: NO KNOWN DRUG ALLERGIES (Verified Allergy, Unknown, 09/11/16) Subjective 06/17: blood transfusion completed, on low dose pressors, no bleeding noted 06/19: liya rn, no major events, cbc reviewed, tube feeds ongoing 06/22: no major changes, no bleeding or night sweats, on abx, in sariah 06/23: no f/c, no bleeding, labs noted, in sariah, hgb 8, plt 120k 06/24: labs reviewed, no bleeding, no night sweats, no bleeding 06/25: heparin held for potential bleed, gt is clamped, no events, no fc 06/26: for egd today with gi, bleeding noted, requiring prbc transf 06/27: gi procedure was done today and noted for diverticulosis, otherwise cbc stable 06/28: remains stable, being treated for gerd, hgb 8, no bleeding 06/29: no bleeding noted, no chills, no night sweats, no fc 06/30: no bleeding, on pressors, no major changes hgb 8.2 07/01: on pressors, with gt feeds, seen by gi wbc is better 07/02: 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, is off pressor in icu, labs noted, liya rn Objective Objective Current Medications Medications (Trade) Dose Ordered Sig/Wanda Route PRN Reason Start Time Stop Time Status Last Admin Dose Admin Acetaminophen (Tylenol) 650 mg Q4H PRN GT fever (temp>100.5F) 06/29/19 19:33 07/29/19 19:32 06/30/19 18:54 Cefepime HCl 1 gm/ Dextrose 55 ml @ 110 mls/hr EVERY 12 HOURS IVPB 06/30/19 13:30 07/07/19 13:29 07/02/19 08:58 Chlorhexidine Gluconate (Jasmin-Hex 2%) 1 applic DAILY@1999 TOPIC 06/29/19 20:00 07/20/19 19:59 07/02/19 19:45 Dextrose/Sodium Chloride 1,000 ml @ 50 mls/hr Q20H IV 06/30/19 14:30 07/30/19 14:29 07/02/19 06:04 Lansoprazole (Prevacid) 30 mg BID GT 07/01/19 18:00 07/31/19 17:59 07/02/19 17:31 Levetiracetam 100 ml @ 400 mls/hr Q12HR IVPB 07/03/19 09:00 08/02/19 08:59 Levothyroxine Sodium (Synthroid) 88 mcg DAILY@0630 GT 06/30/19 06:30 07/20/19 06:29 07/02/19 06:02 Lorazepam (Ativan 2mg/ml 1ml) 2 mg Q4H PRN IVP For Seizures 06/29/19 19:33 07/06/19 19:32 Midodrine (Pro-Amatine) 10 mg EVERY 8 HOURS GT 07/01/19 14:00 07/17/19 12:59 07/02/19 14:22 Norepinephrine Bitartrate 4 mg/ Dextrose 250 ml @ 0 mls/hr Q24H IV 06/29/19 22:30 07/29/19 22:29 07/02/19 04:34 Ondansetron HCl (Zofran) 4 mg Q6H PRN IVP Nausea & Vomiting 06/29/19 19:33 07/29/19 19:32 Phenobarbital (PHENobarbital) 60 mg Q8HR NG 07/01/19 14:00 07/31/19 13:59 07/02/19 14:23 Phenytoin 200 mg/ Sodium Chloride 59 ml @ 118 mls/hr Q12HR IVPB 07/03/19 09:00 08/02/19 08:59 Polyethylene Glycol (Miralax) 17 gm DAILYPRN PRN GT Constipation 06/29/19 19:33 07/29/19 19:32 Sucralfate (Carafate) 1 gm EVERY 8 HOURS GT 06/29/19 22:00 07/21/19 08:59 07/02/19 14:22 Vancomycin HCl (Vanco rx to dose) 1 ea DAILY PRN MISC Per rx protocol 06/30/19 12:15 07/30/19 12:14 Vancomycin HCl 1 gm/Dextrose 275 ml @ 183.708 mls/hr Q24H IVPB 07/01/19 15:00 07/06/19 14:59 07/02/19 14:54 Zinc Oxide (Zinc Oxide) 1 applic QHS TOPIC 06/29/19 21:00 07/21/19 08:59 07/01/19 20:53 Last 24 Hour Vital Signs Date Time Temp Pulse Resp B/P (MAP) Pulse Ox O2 Delivery O2 Flow Rate FiO2 07/02/19 20:00 35 07/02/19 20:00 98.5 78 19 123/58 (79) 100 07/02/19 19:30 75 17 147/70 (95) 100 07/02/19 19:00 70 18 143/52 (82) 100 07/02/19 18:58 143/55 07/02/19 18:39 78 17 35 07/02/19 18:00 74 18 112/49 (70) 99 07/02/19 18:00 112/49 07/02/19 17:00 123/56 07/02/19 17:00 75 19 120/46 (70) 99 07/02/19 16:41 80 26 35 07/02/19 16:00 98.6 77 17 134/64 (87) 99 07/02/19 16:00 125/59 07/02/19 16:00 35 07/02/19 16:00 Mechanical Ventilator 07/02/19 16:00 74 07/02/19 15:02 78 21 35 07/02/19 15:00 78 18 125/59 (81) 99 07/02/19 15:00 126/64 07/02/19 14:00 82 16 90/65 (73) 99 07/02/19 14:00 117/51 07/02/19 13:00 74 16 129/61 (83) 100 07/02/19 13:00 120/50 07/02/19 12:49 70 16 35 07/02/19 12:00 Mechanical Ventilator 07/02/19 12:00 35 07/02/19 12:00 98.5 65 17 122/50 (74) 99 07/02/19 12:00 124/43 07/02/19 12:00 75 10/23/19 11:27 77 20 35 07/02/19 11:00 74 17 112/51 (71) 99 07/02/19 11:00 112/51 07/02/19 10:30 73 16 125/58 (80) 100 07/02/19 10:00 82/42 07/02/19 10:00 71 16 82/42 (55) 100 07/02/19 09:30 69 16 111/47 (68) 99 07/02/19 09:00 119/60 07/02/19 09:00 72 16 119/60 (79) 100 07/02/19 08:54 74 17 35 07/02/19 08:30 74 16 121/71 (88) 100 07/02/19 08:30 121/71 07/02/19 08:00 77 07/02/19 08:00 98.6 74 16 123/98 (106) 100 07/02/19 08:00 Mechanical Ventilator 07/02/19 08:00 123/98 07/02/19 08:00 35 07/02/19 07:45 74 16 123/98 (106) 100 07/02/19 07:30 74 16 128/56 (80) 100 07/02/19 07:30 128/56 07/02/19 07:20 73 16 35 07/02/19 07:15 125/55 07/02/19 07:15 75 18 125/55 (78) 100 07/02/19 07:00 74 17 110/50 (70) 100 07/02/19 06:45 79 18 131/59 (83) 100 07/02/19 06:43 78 18 121/65 (83) 100 07/02/19 06:38 87/43 07/02/19 06:30 71 16 87/43 (58) 99 07/02/19 06:00 78 16 107/54 (71) 100 07/02/19 06:00 107/54 07/02/19 05:30 77 17 119/55 (76) 100 07/02/19 05:15 79 19 35 07/02/19 05:00 80 18 115/58 (77) 100 07/02/19 05:00 115/58 07/02/19 04:34 114/66 07/02/19 04:30 82 16 114/66 (82) 100 07/02/19 04:00 35 07/02/19 04:00 115/65 07/02/19 04:00 Mechanical Ventilator 07/02/19 04:00 97.8 82 19 115/65 (82) 100 07/02/19 03:46 83 07/02/19 03:30 82 16 126/60 (82) 100 07/02/19 03:00 101/54 07/02/19 03:00 79 18 101/54 (70) 99 07/02/19 02:31 81 18 35 07/02/19 02:30 80 19 124/59 (80) 99 07/02/19 02:00 119/60 07/02/19 02:00 83 18 119/60 (79) 99 07/02/19 01:30 87 19 128/80 (96) 99 07/02/19 01:00 85 16 132/54 (80) 100 07/02/19 00:55 87 21 35 07/02/19 00:30 83 19 123/59 (80) 99 07/02/19 00:00 35 07/02/19 00:00 99.3 84 20 125/71 (89) 99 07/02/19 00:00 125/71 07/02/19 00:00 Mechanical Ventilator 07/01/19 23:30 82 19 129/62 (84) 99 07/01/19 23:08 84 07/01/19 23:06 84 18 35 07/01/19 23:00 82 23 127/64 (85) 98 07/01/19 23:00 127/64 07/01/19 22:30 87 19 117/59 (78) 98 07/01/19 22:00 90 15 128/61 (83) 88 07/01/19 22:00 128/61 07/01/19 21:30 82 14 103/48 (66) 100 07/01/19 21:00 81 18 110/44 (66) 100 07/01/19 21:00 110/44 07/01/19 20:56 83 17 35 07/01/19 20:30 85 16 113/47 (69) 99 07/01/19 20:00 Mechanical Ventilator 07/01/19 20:00 117/44 07/01/19 20:00 35 07/01/19 20:00 99.1 84 14 117/44 (68) 100 07/01/19 19:30 81 17 95/43 (60) 99 07/01/19 19:25 80 07/01/19 19:00 107/53 07/01/19 19:00 84 17 107/53 (71) 99 07/01/19 18:45 86 17 119/46 (70) 100 07/01/19 18:42 84 21 35 07/01/19 18:30 84 17 121/59 (79) 99 07/01/19 18:30 121/59 07/01/19 18:15 85 17 124/45 (71) 99 07/01/19 18:00 88 15 116/46 (69) 100 07/01/19 18:00 116/46 07/01/19 17:45 85 18 123/78 (93) 99 07/01/19 17:30 118/60 07/01/19 17:30 80 18 118/60 (79) 100 07/01/19 17:19 83 22 35 07/01/19 17:17 78 16 109/57 (74) 100 07/01/19 17:00 79 16 115/47 (69) 100 07/01/19 17:00 115/47 07/01/19 16:45 79 17 112/57 (75) 100 07/01/19 16:30 79 17 120/43 (68) 100 07/01/19 16:30 120/43 07/01/19 16:15 79 17 117/56 (76) 100 07/01/19 16:00 Mechanical Ventilator 07/01/19 16:00 87/40 07/01/19 16:00 80 07/01/19 16:00 30 07/01/19 16:00 75 16 87/40 (56) 99 07/01/19 15:45 79 17 105/42 (63) 99 07/01/19 15:30 79 17 103/45 (64) 99 07/01/19 15:15 79 18 107/49 (68) 100 07/01/19 15:06 71 16 35 07/01/19 15:00 78 18 99/44 (62) 99 07/01/19 14:45 77 16 98/43 (61) 100 07/01/19 14:30 81 16 105/43 (63) 100 07/01/19 14:30 105/43 07/01/19 14:15 83 16 116/51 (72) 99 07/01/19 14:00 115/44 07/01/19 14:00 81 21 115/44 (67) 99 07/01/19 13:45 86 20 116/47 (70) 99 07/01/19 13:30 79 18 116/47 (70) 100 07/01/19 13:29 87 21 35 07/01/19 13:15 77 16 116/53 (74) 99 07/01/19 13:00 98/52 07/01/19 13:00 70 17 98/52 (67) 99 07/01/19 12:45 68 17 90/46 (61) 99 07/01/19 12:30 126/64 07/01/19 12:15 97.9 73 16 123/59 (80) 100 07/01/19 12:00 Mechanical Ventilator 07/01/19 12:00 115/51 07/01/19 12:00 76 17 115/51 (72) 99 07/01/19 12:00 30 07/01/19 12:00 66 07/01/19 11:45 76 17 130/65 (86) 99 07/01/19 11:30 119/57 07/01/19 11:30 70 17 119/57 (77) 100 07/01/19 11:23 72 16 35 07/01/19 11:15 87/40 07/01/19 11:15 63 16 87/40 (56) 99 07/01/19 11:00 96/47 07/01/19 11:00 69 18 96/47 (63) 100 07/01/19 10:45 64 16 108/52 (70) 100 07/01/19 10:45 108/52 07/01/19 10:30 68 17 103/46 (65) 100 07/01/19 10:30 103/46 07/01/19 10:15 64 16 98/45 (62) 100 07/01/19 10:15 98/45 07/01/19 10:10 61 16 77/37 (50) 99 07/01/19 10:10 77/37 07/01/19 10:05 63 16 90/40 (57) 100 07/01/19 10:00 70/32 07/01/19 10:00 63 16 70/32 (45) 99 10/22/19 09:45 71 17 90/43 (59) 99 07/01/19 09:30 79 16 106/52 (70) 98 07/01/19 09:15 75 17 115/50 (71) 98 07/01/19 09:15 115/50 07/01/19 09:00 70 16 35 07/01/19 09:00 108/52 07/01/19 09:00 75 16 108/52 (70) 100 07/01/19 08:45 73 17 122/65 (84) 100 07/01/19 08:45 122/65 07/01/19 08:30 67 16 129/65 (86) 100 07/01/19 08:30 129/65 07/01/19 08:00 30 07/01/19 08:00 99.1 66 17 129/65 (86) 100 07/01/19 08:00 129/65 07/01/19 08:00 62 07/01/19 08:00 Mechanical Ventilator 07/01/19 07:30 60 16 100/52 (68) 100 07/01/19 07:20 59 16 35 07/01/19 07:00 122/57 07/01/19 07:00 67 16 122/57 (78) 100 07/01/19 06:00 77 16 119/67 (84) 100 07/01/19 06:00 119/67 07/01/19 05:30 76 17 35 07/01/19 05:30 80 16 122/64 (83) 99 07/01/19 05:00 121/61 07/01/19 05:00 82 22 121/61 (81) 07/01/19 04:30 85 16 107/49 (68) 99 07/01/19 04:00 99.7 81 17 108/52 (70) 100 07/01/19 04:00 30 07/01/19 04:00 Mechanical Ventilator 07/01/19 03:30 72 18 102/50 (67) 99 07/01/19 03:11 73 07/01/19 03:10 70 16 35 07/01/19 03:00 76 17 110/51 (70) 99 07/01/19 02:30 71 18 103/48 (66) 99 07/01/19 02:00 72 16 106/47 (66) 99 07/01/19 02:00 106/47 07/01/19 01:30 73 15 98/45 (62) 99 07/01/19 01:00 73 15 97/46 (63) 99 07/01/19 01:00 84 24 35 07/01/19 01:00 99/54 07/01/19 00:52 99/54 07/01/19 00:30 69 16 102/46 (64) 07/01/19 00:00 Mechanical Ventilator 07/01/19 00:00 98.0 70 17 108/51 (70) 07/01/19 00:00 108/51 07/01/19 00:00 30 07/01/19 00:00 68 06/30/19 23:30 68 16 96/47 (63) 06/30/19 23:12 81 24 35 06/30/19 23:00 94/43 06/30/19 23:00 67 16 94/43 (60) 06/30/19 22:30 75 17 94/47 (63) 06/30/19 22:15 78 16 103/49 (67) 06/30/19 22:00 105/44 06/30/19 22:00 74 18 105/44 (64) 06/30/19 21:45 77 16 105/57 (73) 06/30/19 21:30 77 20 108/39 (62) 06/30/19 21:15 77 18 95/37 (56) 06/30/19 21:00 81 18 105/50 (68) 06/30/19 21:00 105/50 06/30/19 21:00 84 21 35 06/30/19 20:45 79 18 92/54 (67) Intake and Output 07/01/19 07/02/19 19:00 07:00 Intake Total 2362.365 ml 1519.0 ml Output Total 1590 ml 1910 ml Balance 772.365 ml -391.0 ml Intake Free Water 120 ml IV Total 1527.365 ml 634.0 ml Tube Feeding 715 ml 685 ml Other 200 ml Output Urine Total 1590 ml 1910 ml Labs Test 06/30/19 04:15 06/30/19 13:40 07/01/19 05:20 07/01/19 05:45 White Blood Count 12.7 K/UL (4.8-10.8) 6.3 K/UL (4.8-10.8) Red Blood Count 2.85 M/UL (4.70-6.10) 2.83 M/UL (4.70-6.10) Hemoglobin 8.2 G/DL (14.2-18.0) 7.9 G/DL (14.2-18.0) Hematocrit 24.6 % (42.0-52.0) 24.3 % (42.0-52.0) Mean Corpuscular Volume 86 FL (80-99) 86 FL (80-99) Mean Corpuscular Hemoglobin 28.7 PG (27.0-31.0) 28.0 PG (27.0-31.0) Mean Corpuscular Hemoglobin Concent 33.2 G/DL (32.0-36.0) 32.6 G/DL (32.0-36.0) Red Cell Distribution Width 16.3 % (11.6-14.8) 16.0 % (11.6-14.8) Platelet Count 337 K/UL (150-450) 343 K/UL (150-450) Mean Platelet Volume 7.5 FL (6.5-10.1) 7.6 FL (6.5-10.1) Neutrophils (%) (Auto) % (45.0-75.0) % (45.0-75.0) Lymphocytes (%) (Auto) % (20.0-45.0) % (20.0-45.0) Monocytes (%) (Auto) % (1.0-10.0) % (1.0-10.0) Eosinophils (%) (Auto) % (0.0-3.0) % (0.0-3.0) Basophils (%) (Auto) % (0.0-2.0) % (0.0-2.0) Differential Total Cells Counted 100 Neutrophils % (Manual) 90 % (45-75) Lymphocytes % (Manual) 3 % (20-45) Monocytes % (Manual) 7 % (1-10) Eosinophils % (Manual) 0 % (0-3) Basophils % (Manual) 0 % (0-2) Band Neutrophils 0 % (0-8) Platelet Estimate Adequate Platelet Morphology Normal Anisocytosis 1+ Sodium Level 136 MMOL/L (136-145) 142 MMOL/L (136-145) Potassium Level 3.8 MMOL/L (3.5-5.1) 4.2 MMOL/L (3.5-5.1) Chloride Level 106 MMOL/L (98-107) 110 MMOL/L (98-107) Carbon Dioxide Level 22 MMOL/L (21-32) 25 MMOL/L (21-32) Anion Gap 8 mmol/L (5-15) 7 mmol/L (5-15) Blood Urea Nitrogen 17 mg/dL (7-18) 19 mg/dL (7-18) Creatinine 1.3 MG/DL (0.55-1.30) 1.4 MG/DL (0.55-1.30) Estimat Glomerular Filtration Rate 54.6 mL/min (>60) 50.1 mL/min (>60) Glucose Level 228 MG/DL (74-106) 129 MG/DL (74-106) Calcium Level 8.4 MG/DL (8.5-10.1) 8.3 MG/DL (8.5-10.1) Urine Color Pale yellow Urine Appearance Clear Urine pH 7 (4.5-8.0) Urine Specific [place] 1.005 (1.005-1.035) Urine Protein 1+ (NEGATIVE) Urine Glucose (UA) Negative (NEGATIVE) Urine Ketones Negative (NEGATIVE) Urine Blood 3+ (NEGATIVE) Urine Nitrite Negative (NEGATIVE) Urine Bilirubin Negative (NEGATIVE) Urine Urobilinogen Normal MG/DL (0.0-1.0) Urine Leukocyte Esterase 3+ (NEGATIVE) Urine RBC 10-15 /HPF (0 - 0) Urine WBC Tntc /HPF (0 - 0) Urine Squamous Epithelial Cells Occasional /LPF Urine Bacteria Many /HPF (NONE) Uric Acid 4.5 MG/DL (2.6-7.2) Phosphorus Level 2.6 MG/DL (2.5-4.9) Magnesium Level 1.8 MG/DL (1.8-2.4) Total Bilirubin 0.2 MG/DL (0.2-1.0) Aspartate Amino Transf (AST/SGOT) 18 U/L (15-37) Alanine Aminotransferase (ALT/SGPT) 30 U/L (12-78) Alkaline Phosphatase 180 U/L (46-116) C-Reactive Protein, Quantitative 13.9 mg/dL (0.00-0.90) Pro-B-Type Natriuretic Peptide 8413 pg/mL (0-125) Total Protein 5.7 G/DL (6.4-8.2) Albumin 2.0 G/DL (3.4-5.0) Globulin 3.7 g/dL Albumin/Globulin Ratio 0.5 (1.0-2.7) Phenytoin (Dilantin) Level 16.2 ug/mL (10-20) Phenobarbital Level 17.5 ug/mL (15-40) Arterial Blood pH 7.447 (7.350-7.450) Arterial Blood Partial Pressure CO2 33.1 mmHg (35.0-45.0) Arterial Blood Partial Pressure O2 128.5 mmHg (75.0-100.0) Arterial Blood HCO3 22.3 mmol/L (22.0-26.0) Arterial Blood Oxygen Saturation 97.9 % (95-100) Arterial Blood Base Excess -1.3 (-2-2) Ger Test Positive Test 07/02/19 04:45 07/02/19 07:47 07/02/19 16:49 White Blood Count 6.2 K/UL (4.8-10.8) Red Blood Count 2.71 M/UL (4.70-6.10) Hemoglobin 7.5 G/DL (14.2-18.0) Hematocrit 23.5 % (42.0-52.0) Mean Corpuscular Volume 87 FL (80-99) Mean Corpuscular Hemoglobin 27.8 PG (27.0-31.0) Mean Corpuscular Hemoglobin Concent 32.1 G/DL (32.0-36.0) Red Cell Distribution Width 15.9 % (11.6-14.8) Platelet Count 302 K/UL (150-450) Mean Platelet Volume 7.5 FL (6.5-10.1) Neutrophils (%) (Auto) % (45.0-75.0) Lymphocytes (%) (Auto) % (20.0-45.0) Monocytes (%) (Auto) % (1.0-10.0) Eosinophils (%) (Auto) % (0.0-3.0) Basophils (%) (Auto) % (0.0-2.0) Sodium Level 144 MMOL/L (136-145) Potassium Level 4.3 MMOL/L (3.5-5.1) Chloride Level 112 MMOL/L (98-107) Carbon Dioxide Level 24 MMOL/L (21-32) Anion Gap 8 mmol/L (5-15) Blood Urea Nitrogen 18 mg/dL (7-18) Creatinine 1.3 MG/DL (0.55-1.30) Estimat Glomerular Filtration Rate 54.6 mL/min (>60) Glucose Level 104 MG/DL (74-106) Calcium Level 8.2 MG/DL (8.5-10.1) Phosphorus Level 2.7 MG/DL (2.5-4.9) Magnesium Level 1.8 MG/DL (1.8-2.4) Total Bilirubin 0.2 MG/DL (0.2-1.0) Aspartate Amino Transf (AST/SGOT) 13 U/L (15-37) Alanine Aminotransferase (ALT/SGPT) 24 U/L (12-78) Alkaline Phosphatase 170 U/L (46-116) C-Reactive Protein, Quantitative 9.1 mg/dL (0.00-0.90) Pro-B-Type Natriuretic Peptide 14683 pg/mL (0-125) Total Protein 5.9 G/DL (6.4-8.2) Albumin 2.2 G/DL (3.4-5.0) Globulin 3.7 g/dL Albumin/Globulin Ratio 0.6 (1.0-2.7) Arterial Blood pH 7.435 (7.350-7.450) Arterial Blood Partial Pressure CO2 35.6 mmHg (35.0-45.0) Arterial Blood Partial Pressure O2 119.7 mmHg (75.0-100.0) Arterial Blood HCO3 23.4 mmol/L (22.0-26.0) Arterial Blood Oxygen Saturation 98.3 % (95-100) Arterial Blood Base Excess -0.7 (-2-2) Ger Test Positive Vancomycin Level Trough 38.7 ug/mL (5.0-12.0) Height (Feet): 5 Height (Inches): 8.00 Weight (Pounds): 143 Objective PHYSICAL EXAMINATION: VITAL SIGNS: Have been reviewed HEENT: Trach/vent site ++ CHEST: Bibasilar rales CV: Regular rate and rhythm. GI: Positive bowel sounds. G-tube++ EXTREMITIES: + edema. NEUROLOGICAL: Reflexes equal on both sides. Nikos Nath MD Jul 02, 2019 20:33
[2019-07-02] MEDS: Zinc Oxide Oint 2oz TOPIC SCH (20:42)
[2019-07-02] MEDS ORDERED: Phenytoin Susp 100mg/4ml NG SCH (21:00)
--- NOTE | 2019-07-02 21:45 | NUR ---
NURSE NOTES: BP 73/42 MMHG NOTED, STARTED LEVOPHED DRIP 1MCG/MIN VIA PICC LINE, WILL CONTINUE TO MONITOR.
--- NOTE | 2019-07-02 23:00 | NUR ---
NURSE NOTES: BP 128/55 MMHG NOTED AT THIS TIME, ONGOING LEVOPHED 4MCG/MIN VIA PICC LINE, KEPT LEGS ELEVATION, WILL CONTINUE PLAN OF CARE.
[2019-07-03] VITALS (63 sets, daily range): BP systolic 95–162; BP diastolic 48–82
[2019-07-03] MEDS ORDERED: Phenytoin 100 MG in NS 55 ML IVPB SCH ×2
--- NOTE | 2019-07-03 00:48 | NUR ---
NURSE NOTES: ORAL CARE WAS DONE, RESPONSE TO TACTILE STIMULI.
--- NOTE | 2019-07-03 02:00 | NUR ---
NURSE NOTES: REPOSITIONED, NO PAIN OR DISTRESS NOTED.
[2019-07-03] MEDS: D5NS 1,000 ML IV SCH ×2 (02:26)
--- NOTE | 2019-07-03 04:30 | NUR ---
NURSE NOTES: MORNING CARE WAS DONE, NO BOWEL MOVEMENT STATUS.
[2019-07-03 04:52] LABS: HEMATOCRIT 24.2 % (42.0-52.0); HEMOGLOBIN 7.6 G/DL (14.2-18.0); MEAN CORPUSCULAR VOLUME 87 FL (80-99); PLATELET COUNT 330 K/UL (150-450); RED BLOOD COUNT 2.78 M/UL (4.70-6.10); RED CELL DISTRIBUTION WIDTH 16.1 % (11.6-14.8); WHITE BLOOD COUNT 6.8 K/UL (4.8-10.8)
[2019-07-03 05:20] LABS: PHOSPHORUS 2.4 MG/DL (2.5-4.9)
[2019-07-03 05:22] LABS: ALANINE AMINOTRANSFERASE 21 U/L (12-78); ALBUMIN/GLOBULIN RATIO 0.5 (1.0-2.7); ALKALINE PHOSPHATASE 180 U/L (46-116); ANION GAP 7 mmol/L (5-15); ASPARTATE AMINO TRANSFERASE 13 U/L (15-37); BILIRUBIN,TOTAL 0.2 MG/DL (0.2-1.0); BLOOD UREA NITROGEN 21 mg/dL (7-18); CALCIUM 8.2 MG/DL (8.5-10.1); CARBON DIOXIDE 25 MMOL/L (21-32); CHLORIDE 111 MMOL/L (98-107); CREATININE 1.3 MG/DL (0.55-1.30); POTASSIUM 4.3 MMOL/L (3.5-5.1); SODIUM 143 MMOL/L (136-145)
[2019-07-03] MEDS: Sucralfate 1gm tab GT SCH ×3 (06:04→21:03)
[2019-07-03] MEDS: PHENobarbital Elixir 30mg/7.5ml NG SCH ×3 (06:04→21:03)
[2019-07-03] MEDS: Midodrine 10mg tab GT SCH ×3 (06:04→21:03)
--- NOTE | 2019-07-03 06:20 | NUR ---
NURSE NOTES: SEEN THE PATIENT BY DR. LOOMIS.
--- NOTE | 2019-07-03 06:30 | NUR ---
RESPIRATORY NOTE: Received pt on AC 16, 600ml, 35%, no PEEP. Pt is trach and vent dependent with a cuffed, Portex trach size 8. Pt is obtunded, responds to stimuli. Bari. rhonch breath sounds heard upon auscultation, sxn small amounts of thick white owens secretions without incidents. Alarms are set and audible, Vent plugged into red outlet, ambu bag and trach spare kit at bedside. Vent circuits and suction tubing are secured and out of the way. Pt in no apparent distress at this time. Will continue to monitor pt.
--- NOTE | 2019-07-03 06:39 | NUR ---
NURSE NOTES: ONGOING LEVOPHED 3MCG/MIN VIA PICC LINE, NO ACUTE DISTRESS NOTED AT THIS SHIFT.
--- NOTE | 2019-07-03 07:17 | NUR ---
HAND-OFF: Report given to ODILIA CARRASCO.
--- NOTE | 2019-07-03 07:18 | NUR ---
NURSE NOTES: Late entry: PT and report received from ODILIA Dumas, PT received obtunded, eyes closed, PT reacts to tactile stimulus / sternal rub, received on Levophed drip on 3mcg/min; per MD Kris wean off 1ml/hr, reported that PT went hypotensive at 1930; PT VS BP 128/76; HR 73; T 99.4 L-axillary; o2 sat 100% PT has portex 8; ac 16; tv 600; 35%; 0 peep; no S/S of respiratory distress noted. Gtube feeding running at 60cc/hr, 10cc residual noted. PT has ALEXI-picc infusing D5NS @ 50cc also. Morning labs for PT show phosphorus @ 2.4; Hgb @ 7.6. Will continue with plan of care for PT.
[2019-07-03] MEDS: levETIRAcetam 1,000mg/NS100ml 100 ML IVPB SCH ×2 (08:53→20:30)
[2019-07-03] MEDS: Cefepime HCl 1 GM in D5W 55 ML IVPB SCH ×2 (08:53→20:09)
--- NOTE | 2019-07-03 09:09 | NUR ---
NURSE NOTES: Levophed decreased by 1ml/hr; currently infusing at 10.25ml/hr; BP @ 124/54. Dilantin IV will be started after infusing Keppra, ALEXANDRA Livingston made aware of decrease in rate. Will continue to monitor PT.
--- NOTE | 2019-07-03 09:14 | NUR ---
NURSE NOTES: MD [place] made rounds, informed MD about low Phosphorus level.
[2019-07-03] MEDS: Phenytoin 200 MG in NS 55 ML IVPB SCH ×2 (09:29→21:03)
--- NOTE | 2019-07-03 10:05 | NUR ---
NURSE NOTES: PT HR 74; BP 123/60; o2 saturation 100%; VS stable, tolerated Dilantin well, no adverse reactions of hypotension noted; PT remains on Levophed @ 10.25cc/hr. Will continue to monitor.
--- NOTE | 2019-07-03 10:26 | Pulmonolgy Critical Care Note ---
Critical Care - Asmt/Plan Problems: (1) Septic shock (2) Pyelonephritis (3) Chronic respiratory failure (4) Alzheimer's dementia (5) Severe erosive esophagitis (6) Feeding by G-tube (7) Diabetes (8) CVA (cerebral vascular accident) Respiratory: monitor respiratory rate, adjust FIO2, CXR Cardiac: continue to monitor HR/BP Renal: F/U I&O, check electrolytes Infectious Disease: check cultures Gastrointestinal: continue feedings/current rate Endocrine: monitor blood sugar, continue sliding scale insulin Hematologic: monitor H/H, transfuse if hgb<8.5 Neurologic: PRN Morphine, keep patient comfortable Prophylaxis: Protonix 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, 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, 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 - Objective Last 24 Hour Vital Signs Date Time Temp Pulse Resp B/P (MAP) Pulse Ox O2 Delivery O2 Flow Rate FiO2 07/03/19 10:00 134/61 07/03/19 10:00 72 16 134/61 (85) 99 07/03/19 09:00 72 17 124/54 (77) 100 07/03/19 09:00 124/54 07/03/19 08:53 72 21 35 07/03/19 08:00 Mechanical Ventilator 07/03/19 08:00 99.4 70 16 117/61 (79) 100 07/03/19 08:00 117/61 07/03/19 08:00 35 07/03/19 08:00 72 07/03/19 07:00 72 17 133/55 (81) 100 07/03/19 06:30 73 16 126/52 (76) 100 07/03/19 06:30 70 16 35 07/03/19 06:00 68 16 121/59 (79) 100 07/03/19 06:00 121/59 07/03/19 05:30 70 21 128/58 (81) 100 07/03/19 05:13 74 18 35 07/03/19 05:00 128/72 07/03/19 05:00 73 19 128/72 (90) 100 07/03/19 04:30 65 16 97/51 (66) 99 07/03/19 04:00 Mechanical Ventilator 07/03/19 04:00 35 07/03/19 04:00 111/50 07/03/19 04:00 99.0 71 17 111/50 (70) 100 07/03/19 03:51 72 07/03/19 03:30 74 19 133/56 (81) 100 07/03/19 03:00 70 16 123/58 (79) 100 07/03/19 03:00 123/58 07/03/19 02:54 69 16 35 07/03/19 02:30 69 16 108/50 (69) 99 07/03/19 02:15 69 17 113/50 (71) 100 07/03/19 02:00 100/48 07/03/19 02:00 66 16 100/48 (65) 99 07/03/19 01:45 68 16 95/52 (66) 99 07/03/19 01:30 72 18 111/56 (74) 100 07/03/19 01:15 70 17 108/53 (71) 99 07/03/19 01:00 119/48 07/03/19 01:00 70 18 119/48 (71) 100 07/03/19 00:53 75 19 35 07/03/19 00:30 71 17 117/55 (75) 99 07/03/19 00:17 71 07/03/19 00:15 72 18 132/52 (78) 100 07/03/19 00:00 35 07/03/19 00:00 99.4 73 20 129/62 (84) 100 07/03/19 00:00 129/62 07/03/19 00:00 Mechanical Ventilator 07/02/19 23:30 72 19 126/58 (80) 100 07/02/19 23:15 72 15 128/51 (76) 100 07/02/19 23:00 71 14 128/55 (79) 100 07/02/19 23:00 128/55 07/02/19 22:59 69 18 35 07/02/19 22:45 68 19 129/58 (81) 100 07/02/19 22:40 69 20 121/51 (74) 100 07/02/19 22:35 68 19 120/53 (75) 100 07/02/19 22:30 116/62 07/02/19 22:30 67 18 116/62 (80) 100 07/02/19 22:25 66 18 112/53 (72) 100 07/02/19 22:20 64 19 116/64 (81) 100 07/02/19 22:15 65 15 105/51 (69) 100 07/02/19 22:10 87/45 07/02/19 22:10 57 16 87/45 (59) 99 07/02/19 22:05 61 16 71/33 (46) 99 07/02/19 22:05 71/33 07/02/19 22:00 69/35 07/02/19 22:00 61 16 69/35 (46) 98 07/02/19 21:45 63 18 73/42 (52) 100 07/02/19 21:45 73/42 07/02/19 21:41 66 20 87/42 (57) 98 07/02/19 21:30 65 18 100 07/02/19 21:15 64 18 99 07/02/19 21:00 64 20 129/58 (81) 100 07/02/19 20:58 65 16 35 07/02/19 20:45 60 16 117/55 (75) 99 07/02/19 20:30 65 16 125/47 (73) 100 07/02/19 20:00 35 07/02/19 20:00 98.5 78 19 123/58 (79) 100 07/02/19 20:00 Mechanical Ventilator 07/02/19 19:42 71 07/02/19 19:30 75 17 147/70 (95) 100 07/02/19 19:00 70 18 143/52 (82) 100 07/02/19 18:58 143/55 07/02/19 18:39 78 17 35 07/02/19 18:00 74 18 112/49 (70) 99 07/02/19 18:00 112/49 07/02/19 17:00 123/56 07/02/19 17:00 75 19 120/46 (70) 99 07/02/19 16:41 80 26 35 07/02/19 16:00 98.6 77 17 134/64 (87) 99 07/02/19 16:00 125/59 07/02/19 16:00 35 07/02/19 16:00 Mechanical Ventilator 07/02/19 16:00 74 07/02/19 15:02 78 21 35 07/02/19 15:00 78 18 125/59 (81) 99 07/02/19 15:00 126/64 07/02/19 14:00 82 16 90/65 (73) 99 07/02/19 14:00 117/51 07/02/19 13:00 74 16 129/61 (83) 100 07/02/19 13:00 120/50 07/02/19 12:49 70 16 35 07/02/19 12:00 Mechanical Ventilator 07/02/19 12:00 35 07/02/19 12:00 98.5 65 17 122/50 (74) 99 07/02/19 12:00 124/43 07/02/19 12:00 75 07/02/19 11:27 77 20 35 07/02/19 11:00 74 17 112/51 (71) 99 07/02/19 11:00 112/51 07/02/19 10:30 73 16 125/58 (80) 100 Status: somnolent Condition: critical HEENT: atraumatic Neck: full ROM Lungs: rales, rhonchi Heart: HR/BP stable Abdomen: soft, non-tender Extremities: no C/C/E, edema Micro: Microbiology Date/Time Source Procedure Growth Status 06/30/19 16:45 Blood Blood Culture - Preliminary NO GROWTH AFTER 48 HOURS Resulted 06/30/19 16:30 Blood Blood Culture - Preliminary NO GROWTH AFTER 48 HOURS Resulted 07/01/19 05:45 Sputum Induced Gram Stain - Final Resulted 07/01/19 05:45 Sputum Culture - Preliminary Gram Negative Bacillus 1 Gram Negative Bacillus 2 Resulted 06/30/19 13:40 Urine,Clean Catch Urine Culture - Final Tea Tropicalis Complete Critical Care - Subjective ROS Limited/Unobtainable: Yes EKG Rhythm: Sinus Rhythm FI02: 35 Vent Support Breath Rate: 16 Vent Support Mode: AC Vent Tidal Volume: 600 Sputum Amount: Small PEEP: 0.0 PIP: 31 Tube Feeding Amount: 30 I&O: Intake and Output 07/02/19 07/03/19 19:00 07:00 Intake Total 1731.750 ml 1894.00 ml Output Total 985 ml 845 ml Balance 746.750 ml 1049.00 ml IV Total 941.750 ml 1094.00 ml Tube Feeding 690 ml 600 ml Other 100 ml 200 ml Output Urine Total 985 ml 845 ml CXR: no change Labs: Laboratory Tests Test 07/02/19 16:49 07/03/19 03:40 Vancomycin Level Trough 38.7 ug/mL (5.0-12.0) H White Blood Count 6.8 K/UL (4.8-10.8) Red Blood Count 2.78 M/UL (4.70-6.10) L Hemoglobin 7.6 G/DL (14.2-18.0) L Hematocrit 24.2 % (42.0-52.0) L Mean Corpuscular Volume 87 FL (80-99) Mean Corpuscular Hemoglobin 27.6 PG (27.0-31.0) Mean Corpuscular Hemoglobin Concent 31.6 G/DL (32.0-36.0) L Red Cell Distribution Width 16.1 % (11.6-14.8) H Platelet Count 330 K/UL (150-450) Mean Platelet Volume 7.6 FL (6.5-10.1) Neutrophils (%) (Auto) % (45.0-75.0) Lymphocytes (%) (Auto) % (20.0-45.0) Monocytes (%) (Auto) % (1.0-10.0) Eosinophils (%) (Auto) % (0.0-3.0) Basophils (%) (Auto) % (0.0-2.0) Differential Total Cells Counted 100 Neutrophils % (Manual) 51 % (45-75) Lymphocytes % (Manual) 31 % (20-45) Monocytes % (Manual) 11 % (1-10) H Eosinophils % (Manual) 7 % (0-3) H Basophils % (Manual) 0 % (0-2) Band Neutrophils 0 % (0-8) Platelet Estimate Adequate Platelet Morphology Normal Hypochromasia 1+ Anisocytosis 1+ Erythrocyte Sedimentation Rate 70 MM/HR (0-20) H Sodium Level 143 MMOL/L (136-145) Potassium Level 4.3 MMOL/L (3.5-5.1) Chloride Level 111 MMOL/L (98-107) H Carbon Dioxide Level 25 MMOL/L (21-32) Anion Gap 7 mmol/L (5-15) Blood Urea Nitrogen 21 mg/dL (7-18) H Creatinine 1.3 MG/DL (0.55-1.30) Estimat Glomerular Filtration Rate 54.6 mL/min (>60) Glucose Level 131 MG/DL (74-106) H Calcium Level 8.2 MG/DL (8.5-10.1) L Phosphorus Level 2.4 MG/DL (2.5-4.9) L Magnesium Level 1.8 MG/DL (1.8-2.4) Total Bilirubin 0.2 MG/DL (0.2-1.0) Aspartate Amino Transf (AST/SGOT) 13 U/L (15-37) L Alanine Aminotransferase (ALT/SGPT) 21 U/L (12-78) Alkaline Phosphatase 180 U/L (46-116) H C-Reactive Protein, Quantitative 6.5 mg/dL (0.00-0.90) H Total Protein 5.9 G/DL (6.4-8.2) L Albumin 2.0 G/DL (3.4-5.0) L Globulin 3.9 g/dL Albumin/Globulin Ratio 0.5 (1.0-2.7) L Phenytoin (Dilantin) Level 19.2 ug/mL (10-20) Phenobarbital Level 22.6 ug/mL (15-40) Huma Keating MD Jul 03, 2019 10:26
--- NOTE | 2019-07-03 10:41 | General Progress Note ---
Assessment/Plan Problem List: (1) [facility] resident ICD Codes: Z59.3 - Problems related to living in residential institution SNOMED: 842436410 (2) GT SITE LEAKING (3) Alzheimer's dementia ICD Codes: G30.9 - Alzheimer's disease, unspecified SNOMED: 48161482 (4) Upper GI bleed ICD Codes: K92.2 - Upper gastrointestinal hemorrhage SNOMED: 72618046 (5) Severe erosive esophagitis (6) Malfunction of gastrostomy tube ICD Codes: K94.23 - Gastrostomy malfunction SNOMED: 824415508 (7) Chronic respiratory failure ICD Codes: J96.10 - Chronic respiratory failure, unspecified whether with hypoxia or hypercapnia SNOMED: 50292395 (8) Anemia ICD Codes: D64.9 - Anemia, unspecified SNOMED: 154691469 Status: unchanged Assessment/Plan: stable H&H no obvious GIB per nurses ppi GTF abx per ID ICU care Subjective ROS Limited/Unobtainable: No Allergies: Coded Allergies: NO KNOWN DRUG ALLERGIES (Verified Allergy, Unknown, 09/11/16) Subjective only on low rate pressor GTF running Objective Last 24 Hour Vital Signs Date Time Temp Pulse Resp B/P (MAP) Pulse Ox O2 Delivery O2 Flow Rate FiO2 07/03/19 10:00 134/61 07/03/19 10:00 72 16 134/61 (85) 99 07/03/19 09:00 72 17 124/54 (77) 100 07/03/19 09:00 124/54 07/03/19 08:53 72 21 35 07/03/19 08:00 Mechanical Ventilator 07/03/19 08:00 99.4 70 16 117/61 (79) 100 07/03/19 08:00 117/61 07/03/19 08:00 35 07/03/19 08:00 72 07/03/19 07:00 72 17 133/55 (81) 100 07/03/19 06:30 73 16 126/52 (76) 100 07/03/19 06:30 70 16 35 07/03/19 06:00 68 16 121/59 (79) 100 07/03/19 06:00 121/59 07/03/19 05:30 70 21 128/58 (81) 100 07/03/19 05:13 74 18 35 07/03/19 05:00 128/72 07/03/19 05:00 73 19 128/72 (90) 100 07/03/19 04:30 65 16 97/51 (66) 99 07/03/19 04:00 Mechanical Ventilator 07/03/19 04:00 35 07/03/19 04:00 111/50 07/03/19 04:00 99.0 71 17 111/50 (70) 100 07/03/19 03:51 72 07/03/19 03:30 74 19 133/56 (81) 100 07/03/19 03:00 70 16 123/58 (79) 100 07/03/19 03:00 123/58 07/03/19 02:54 69 16 35 07/03/19 02:30 69 16 108/50 (69) 99 07/03/19 02:15 69 17 113/50 (71) 100 07/03/19 02:00 100/48 07/03/19 02:00 66 16 100/48 (65) 99 07/03/19 01:45 68 16 95/52 (66) 99 07/03/19 01:30 72 18 111/56 (74) 100 07/03/19 01:15 70 17 108/53 (71) 99 07/03/19 01:00 119/48 07/03/19 01:00 70 18 119/48 (71) 100 07/03/19 00:53 75 19 35 07/03/19 00:30 71 17 117/55 (75) 99 07/03/19 00:17 71 07/03/19 00:15 72 18 132/52 (78) 100 07/03/19 00:00 35 07/03/19 00:00 99.4 73 20 129/62 (84) 100 07/03/19 00:00 129/62 07/03/19 00:00 Mechanical Ventilator 07/02/19 23:30 72 19 126/58 (80) 100 07/02/19 23:15 72 15 128/51 (76) 100 07/02/19 23:00 71 14 128/55 (79) 100 07/02/19 23:00 128/55 07/02/19 22:59 69 18 35 07/02/19 22:45 68 19 129/58 (81) 100 07/02/19 22:40 69 20 121/51 (74) 100 07/02/19 22:35 68 19 120/53 (75) 100 07/02/19 22:30 116/62 07/02/19 22:30 67 18 116/62 (80) 100 07/02/19 22:25 66 18 112/53 (72) 100 07/02/19 22:20 64 19 116/64 (81) 100 07/02/19 22:15 65 15 105/51 (69) 100 07/02/19 22:10 87/45 07/02/19 22:10 57 16 87/45 (59) 99 07/02/19 22:05 61 16 71/33 (46) 99 07/02/19 22:05 71/33 07/02/19 22:00 69/35 07/02/19 22:00 61 16 69/35 (46) 98 07/02/19 21:45 63 18 73/42 (52) 100 07/02/19 21:45 73/42 07/02/19 21:41 66 20 87/42 (57) 98 07/02/19 21:30 65 18 100 07/02/19 21:15 64 18 99 07/02/19 21:00 64 20 129/58 (81) 100 07/02/19 20:58 65 16 35 07/02/19 20:45 60 16 117/55 (75) 99 07/02/19 20:30 65 16 125/47 (73) 100 07/02/19 20:00 35 07/02/19 20:00 98.5 78 19 123/58 (79) 100 07/02/19 20:00 Mechanical Ventilator 07/02/19 19:42 71 07/02/19 19:30 75 17 147/70 (95) 100 07/02/19 19:00 70 18 143/52 (82) 100 07/02/19 18:58 143/55 07/02/19 18:39 78 17 35 07/02/19 18:00 74 18 112/49 (70) 99 07/02/19 18:00 112/49 07/02/19 17:00 123/56 07/02/19 17:00 75 19 120/46 (70) 99 07/02/19 16:41 80 26 35 07/02/19 16:00 98.6 77 17 134/64 (87) 99 07/02/19 16:00 125/59 07/02/19 16:00 35 07/02/19 16:00 Mechanical Ventilator 07/02/19 16:00 74 07/02/19 15:02 78 21 35 07/02/19 15:00 78 18 125/59 (81) 99 07/02/19 15:00 126/64 07/02/19 14:00 82 16 90/65 (73) 99 07/02/19 14:00 117/51 07/02/19 13:00 74 16 129/61 (83) 100 07/02/19 13:00 120/50 07/02/19 12:49 70 16 35 07/02/19 12:00 Mechanical Ventilator 07/02/19 12:00 35 07/02/19 12:00 98.5 65 17 122/50 (74) 99 07/02/19 12:00 124/43 07/02/19 12:00 75 07/02/19 11:27 77 20 35 07/02/19 11:00 74 17 112/51 (71) 99 07/02/19 11:00 112/51 Intake and Output 07/02/19 07/03/19 19:00 07:00 Intake Total 1731.750 ml 1894.00 ml Output Total 985 ml 845 ml Balance 746.750 ml 1049.00 ml IV Total 941.750 ml 1094.00 ml Tube Feeding 690 ml 600 ml Other 100 ml 200 ml Output Urine Total 985 ml 845 ml Laboratory Tests 07/02/19 16:49: Vancomycin Level Trough 38.7H 07/03/19 03:40: White Blood Count 6.8, Red Blood Count 2.78L, Hemoglobin 7.6L, Hematocrit 24.2L , Mean Corpuscular Volume 87, Mean Corpuscular Hemoglobin 27.6, Mean Corpuscular Hemoglobin Concent 31.6L, Red Cell Distribution Width 16.1H, Platelet Count 330, Mean Platelet Volume 7.6, Neutrophils (%) (Auto) , Lymphocytes (%) (Auto) , Monocytes (%) (Auto) , Eosinophils (%) (Auto) , Basophils (%) (Auto) , Differential Total Cells Counted 100, Neutrophils % ( Manual) 51, Lymphocytes % (Manual) 31, Monocytes % (Manual) 11H, Eosinophils % ( Manual) 7H, Basophils % (Manual) 0, Band Neutrophils 0, Platelet Estimate Adequate, Platelet Morphology Normal, Hypochromasia 1+, Anisocytosis 1+, Erythrocyte Sedimentation Rate 70H, Sodium Level 143, Potassium Level 4.3, Chloride Level 111H, Carbon Dioxide Level 25, Anion Gap 7, Blood Urea Nitrogen 21H, Creatinine 1.3, Estimat Glomerular Filtration Rate 54.6, Glucose Level 131H , Calcium Level 8.2L, Phosphorus Level 2.4L, Magnesium Level 1.8, Total Bilirubin 0.2, Aspartate Amino Transf (AST/SGOT) 13L, Alanine Aminotransferase ( ALT/SGPT) 21, Alkaline Phosphatase 180H, C-Reactive Protein, Quantitative 6.5H, Total Protein 5.9L, Albumin 2.0L, Globulin 3.9, Albumin/Globulin Ratio 0.5L, Phenytoin (Dilantin) Level 19.2, Phenobarbital Level 22.6 Height (Feet): 5 Height (Inches): 8.00 Weight (Pounds): 148 General Appearance: no apparent distress EENT: normal ENT inspection Neck: supple Cardiovascular: tachycardia Respiratory/Chest: decreased breath sounds Abdomen: normal bowel sounds, non tender, soft Extremities: non-tender Vitaliy Wilson MD Jul 03, 2019 10:41
--- NOTE | 2019-07-03 10:43 | Infectious Diseases Prog Note ---
Assessment/Plan Assessment/Plan Mr. Huffman is a 68 yo male with PMHx of of chronic resp failure trach/vent dependant, diffuse ulcerative esophagitis, peptic esophageal stricture, asthma, GERD, Dm2, CVA/TIA w/ hemiplegia, functional quadriplegia, CAD, CHF, ESBL UTI , GIB s/p multiple EGDs in the past, schizoaffective disorder, Dementia, hypothyroidism, malnutrition, non verbal, infected obstuctive ureterolithiasis/ w abscess s/p L NT palced 12/2018, encephalopathy, Alzheimer's disease, multiple admissions, subacute facility resident who was sent to the for hypotension and bradycardia. Shock, recurrent (06/29)- r/o septic vs neurogenic Probable recurent PNA -07/02 CXR: . Interstitial edema with moderate bilateral layering pleural effusions, grossly unchanged. Bibasilar airspace opacities which likely represent combination of pleural fluid and atelectasis, but pneumonia should be excluded clinically. -06/30 u/a tntc, nit neg, leuk +3; ucx C. tropicalis Bcx NTD CXR: Bilateral pleural effusions and bilateral interstitial and airspace edema are unchanged. sp cx GNR #1, #2 Status epilepticus Leukocytosis; mild recurrent- resolved Hypothermia; SP > Low grade fever 06/30; improving Septic Shock, SP- likely 2ry to UTI and PNA, sp Rx off pressors now Hx of resistant infections 06/23 CXR; Bilateral right greater than left pleural effusions are again demonstrated. Bilateral interstitial and airspace edema persists, unchanged Urine Cx 06/14/19 - >100k ESBL P, stuarti, ESBL P mirabilis (both S Ertapenem , ZOsyn) Blood Cx - NTD CXR show probable pna sp cx PsA (R imipenem, I levaquin), S. maltophila (S bactrim, levaquin) GT leakage with cellulitis, SP -wound cx MDR/CRE K.pna, MDR PsA (colonizers) Chronic resp failure trach/vent dependant asthma Dm2 CVA/TIA w/ hemiplegia Functional quadriplegia CAD CHF GIB s/p multiple EGDs in the past Schizoaffective disorder Dementia Hypothyroidism Non verbal Alzheimer's disease PLAN: -d/c empiric IV Vancomycin #4 -COntinue empiric Cefepime #4 pending sp cx -06/27 SP Levaquin #5 -15 SP IV Amikacin #10 -06/23 SP Ertapenem #9 and IV Vancomycin #9 -10/ SP PO Vancomycin #3 -06/16 SP Flagyl #2 - monitor CBC and Temps -wound care per hospital protocol -GI f/u -f/u Bcx x2, sp cx Thank you for this consult. [facility] will continue to follow the patient with you during this hospitalization. Subjective Allergies: Coded Allergies: NO KNOWN DRUG ALLERGIES (Verified Allergy, Unknown, 09/11/16) Subjective Tm 100.4 leukocytosis resolved levophed at 4 Objective Vital Signs Last 24 Hour Vital Signs Date Time Temp Pulse Resp B/P (MAP) Pulse Ox O2 Delivery O2 Flow Rate FiO2 07/03/19 10:00 134/61 07/03/19 10:00 72 16 134/61 (85) 99 07/03/19 09:00 72 17 124/54 (77) 100 07/03/19 09:00 124/54 07/03/19 08:53 72 21 35 07/03/19 08:00 Mechanical Ventilator 07/03/19 08:00 99.4 70 16 117/61 (79) 100 07/03/19 08:00 117/61 07/03/19 08:00 35 07/03/19 08:00 72 07/03/19 07:00 72 17 133/55 (81) 100 07/03/19 06:30 73 16 126/52 (76) 100 07/03/19 06:30 70 16 35 07/03/19 06:00 68 16 121/59 (79) 100 07/03/19 06:00 121/59 07/03/19 05:30 70 21 128/58 (81) 100 07/03/19 05:13 74 18 35 07/03/19 05:00 128/72 07/03/19 05:00 73 19 128/72 (90) 100 07/03/19 04:30 65 16 97/51 (66) 99 07/03/19 04:00 Mechanical Ventilator 07/03/19 04:00 35 07/03/19 04:00 111/50 07/03/19 04:00 99.0 71 17 111/50 (70) 100 07/03/19 03:51 72 07/03/19 03:30 74 19 133/56 (81) 100 07/03/19 03:00 70 16 123/58 (79) 100 07/03/19 03:00 123/58 07/03/19 02:54 69 16 35 07/03/19 02:30 69 16 108/50 (69) 99 07/03/19 02:15 69 17 113/50 (71) 100 07/03/19 02:00 100/48 07/03/19 02:00 66 16 100/48 (65) 99 07/03/19 01:45 68 16 95/52 (66) 99 07/03/19 01:30 72 18 111/56 (74) 100 07/03/19 01:15 70 17 108/53 (71) 99 07/03/19 01:00 119/48 07/03/19 01:00 70 18 119/48 (71) 100 07/03/19 00:53 75 19 35 07/03/19 00:30 71 17 117/55 (75) 99 07/03/19 00:17 71 07/03/19 00:15 72 18 132/52 (78) 100 07/03/19 00:00 35 07/03/19 00:00 99.4 73 20 129/62 (84) 100 07/03/19 00:00 129/62 07/03/19 00:00 Mechanical Ventilator 07/02/19 23:30 72 19 126/58 (80) 100 07/02/19 23:15 72 15 128/51 (76) 100 07/02/19 23:00 71 14 128/55 (79) 100 07/02/19 23:00 128/55 07/02/19 22:59 69 18 35 07/02/19 22:45 68 19 129/58 (81) 100 07/02/19 22:40 69 20 121/51 (74) 100 07/02/19 22:35 68 19 120/53 (75) 100 07/02/19 22:30 116/62 07/02/19 22:30 67 18 116/62 (80) 100 07/02/19 22:25 66 18 112/53 (72) 100 07/02/19 22:20 64 19 116/64 (81) 100 07/02/19 22:15 65 15 105/51 (69) 100 07/02/19 22:10 87/45 07/02/19 22:10 57 16 87/45 (59) 99 07/02/19 22:05 61 16 71/33 (46) 99 07/02/19 22:05 71/33 07/02/19 22:00 69/35 07/02/19 22:00 61 16 69/35 (46) 98 07/02/19 21:45 63 18 73/42 (52) 100 07/02/19 21:45 73/42 07/02/19 21:41 66 20 87/42 (57) 98 07/02/19 21:30 65 18 100 07/02/19 21:15 64 18 99 07/02/19 21:00 64 20 129/58 (81) 100 07/02/19 20:58 65 16 35 07/02/19 20:45 60 16 117/55 (75) 99 07/02/19 20:30 65 16 125/47 (73) 100 07/02/19 20:00 35 07/02/19 20:00 98.5 78 19 123/58 (79) 100 07/02/19 20:00 Mechanical Ventilator 07/02/19 19:42 71 07/02/19 19:30 75 17 147/70 (95) 100 07/02/19 19:00 70 18 143/52 (82) 100 07/02/19 18:58 143/55 07/02/19 18:39 78 17 35 07/02/19 18:00 74 18 112/49 (70) 99 07/02/19 18:00 112/49 07/02/19 17:00 123/56 07/02/19 17:00 75 19 120/46 (70) 99 07/02/19 16:41 80 26 35 07/02/19 16:00 98.6 77 17 134/64 (87) 99 07/02/19 16:00 125/59 07/02/19 16:00 35 07/02/19 16:00 Mechanical Ventilator 07/02/19 16:00 74 07/02/19 15:02 78 21 35 07/02/19 15:00 78 18 125/59 (81) 99 07/02/19 15:00 126/64 07/02/19 14:00 82 16 90/65 (73) 99 07/02/19 14:00 117/51 07/02/19 13:00 74 16 129/61 (83) 100 07/02/19 13:00 120/50 07/02/19 12:49 70 16 35 07/02/19 12:00 Mechanical Ventilator 07/02/19 12:00 35 07/02/19 12:00 98.5 65 17 122/50 (74) 99 07/02/19 12:00 124/43 07/02/19 12:00 75 07/02/19 11:27 77 20 35 07/02/19 11:00 74 17 112/51 (71) 99 07/02/19 11:00 112/51 Height (Feet): 5 Height (Inches): 8.00 Weight (Pounds): 148 Objective Gen: On vent in IVU HEENT: NCAT, MMM, PERRL, No Oral lesion, no scleral icterus NECK: supple, No LAD, No JVD, Trached LUNGS: Coarse B/L, No W/C CARDS: RRR, S1, S2, No M/R/G, ABD: Soft, NT, ND, No R/G, + BS, No HSM, No Masses, PEG : Deferred Ext: C/C/E, Pulses 2+ B/L (DP, Rad): NEURO: A/O x 0, no following SKIN: Warm/dry, No rashes Microbiology Date/Time Source Procedure Growth Status 06/30/19 16:45 Blood Blood Culture - Preliminary NO GROWTH AFTER 48 HOURS Resulted 06/30/19 16:30 Blood Blood Culture - Preliminary NO GROWTH AFTER 48 HOURS Resulted 07/01/19 05:45 Sputum Induced Gram Stain - Final Resulted 07/01/19 05:45 Sputum Culture - Preliminary Gram Negative Bacillus 1 Gram Negative Bacillus 2 Resulted 06/30/19 13:40 Urine,Clean Catch Urine Culture - Final Tea Tropicalis Complete Laboratory Tests Test 07/02/19 16:49 07/03/19 03:40 Vancomycin Level Trough 38.7 ug/mL (5.0-12.0) H White Blood Count 6.8 K/UL (4.8-10.8) Red Blood Count 2.78 M/UL (4.70-6.10) L Hemoglobin 7.6 G/DL (14.2-18.0) L Hematocrit 24.2 % (42.0-52.0) L Mean Corpuscular Volume 87 FL (80-99) Mean Corpuscular Hemoglobin 27.6 PG (27.0-31.0) Mean Corpuscular Hemoglobin Concent 31.6 G/DL (32.0-36.0) L Red Cell Distribution Width 16.1 % (11.6-14.8) H Platelet Count 330 K/UL (150-450) Mean Platelet Volume 7.6 FL (6.5-10.1) Neutrophils (%) (Auto) % (45.0-75.0) Lymphocytes (%) (Auto) % (20.0-45.0) Monocytes (%) (Auto) % (1.0-10.0) Eosinophils (%) (Auto) % (0.0-3.0) Basophils (%) (Auto) % (0.0-2.0) Differential Total Cells Counted 100 Neutrophils % (Manual) 51 % (45-75) Lymphocytes % (Manual) 31 % (20-45) Monocytes % (Manual) 11 % (1-10) H Eosinophils % (Manual) 7 % (0-3) H Basophils % (Manual) 0 % (0-2) Band Neutrophils 0 % (0-8) Platelet Estimate Adequate Platelet Morphology Normal Hypochromasia 1+ Anisocytosis 1+ Erythrocyte Sedimentation Rate 70 MM/HR (0-20) H Sodium Level 143 MMOL/L (136-145) Potassium Level 4.3 MMOL/L (3.5-5.1) Chloride Level 111 MMOL/L (98-107) H Carbon Dioxide Level 25 MMOL/L (21-32) Anion Gap 7 mmol/L (5-15) Blood Urea Nitrogen 21 mg/dL (7-18) H Creatinine 1.3 MG/DL (0.55-1.30) Estimat Glomerular Filtration Rate 54.6 mL/min (>60) Glucose Level 131 MG/DL (74-106) H Calcium Level 8.2 MG/DL (8.5-10.1) L Phosphorus Level 2.4 MG/DL (2.5-4.9) L Magnesium Level 1.8 MG/DL (1.8-2.4) Total Bilirubin 0.2 MG/DL (0.2-1.0) Aspartate Amino Transf (AST/SGOT) 13 U/L (15-37) L Alanine Aminotransferase (ALT/SGPT) 21 U/L (12-78) Alkaline Phosphatase 180 U/L (46-116) H C-Reactive Protein, Quantitative 6.5 mg/dL (0.00-0.90) H Total Protein 5.9 G/DL (6.4-8.2) L Albumin 2.0 G/DL (3.4-5.0) L Globulin 3.9 g/dL Albumin/Globulin Ratio 0.5 (1.0-2.7) L Phenytoin (Dilantin) Level 19.2 ug/mL (10-20) Phenobarbital Level 22.6 ug/mL (15-40) Current Medications Medications (Trade) Dose Ordered Sig/Wanda Route PRN Reason Start Time Stop Time Status Last Admin Dose Admin Acetaminophen (Tylenol) 650 mg Q4H PRN GT fever (temp>100.5F) 06/29/19 19:33 07/29/19 19:32 06/30/19 18:54 Cefepime HCl 1 gm/ Dextrose 55 ml @ 110 mls/hr EVERY 12 HOURS IVPB 06/30/19 13:30 07/07/19 13:29 07/03/19 08:53 Chlorhexidine Gluconate (Jasmin-Hex 2%) 1 applic DAILY@2000 TOPIC 06/29/19 20:00 07/20/19 19:59 07/02/19 19:45 Dextrose/Sodium Chloride 1,000 ml @ 50 mls/hr Q20H IV 06/30/19 14:30 07/30/19 14:29 07/03/19 02:26 Lansoprazole (Prevacid) 30 mg BID GT 07/01/19 18:00 07/31/19 17:59 07/03/19 08:52 Levetiracetam 100 ml @ 400 mls/hr Q12HR IVPB 07/03/19 09:00 08/02/19 08:59 07/03/19 08:53 Levothyroxine Sodium (Synthroid) 88 mcg DAILY@0630 GT 06/30/19 06:30 07/20/19 06:29 07/03/19 06:04 Lorazepam (Ativan 2mg/ml 1ml) 2 mg Q4H PRN IVP For Seizures 06/29/19 19:33 07/06/19 19:32 Midodrine (Pro-Amatine) 10 mg EVERY 8 HOURS GT 07/01/19 14:00 07/17/19 12:59 07/03/19 06:04 Norepinephrine Bitartrate 4 mg/ Dextrose 250 ml @ 0 mls/hr Q24H IV 06/29/19 22:30 07/29/19 22:29 07/02/19 04:34 Ondansetron HCl (Zofran) 4 mg Q6H PRN IVP Nausea & Vomiting 06/29/19 19:33 07/29/19 19:32 Phenobarbital (PHENobarbital) 60 mg Q8HR NG 07/01/19 14:00 07/31/19 13:59 07/03/19 06:04 Phenytoin 200 mg/ Sodium Chloride 59 ml @ 118 mls/hr Q12HR IVPB 07/03/19 09:00 08/02/19 08:59 07/03/19 09:29 Polyethylene Glycol (Miralax) 17 gm DAILYPRN PRN GT Constipation 06/29/19 19:33 07/29/19 19:32 Sucralfate (Carafate) 1 gm EVERY 8 HOURS GT 06/29/19 22:00 07/21/19 08:59 07/03/19 06:04 Vancomycin HCl (Vanco rx to dose) 1 ea DAILY PRN MISC Per rx protocol 06/30/19 12:15 07/30/19 12:14 Vancomycin HCl 1 gm/Dextrose 275 ml @ 183.708 mls/hr Q24H IVPB 07/01/19 15:00 07/06/19 14:59 07/02/19 14:54 Zinc Oxide (Zinc Oxide) 1 applic QHS TOPIC 06/29/19 21:00 07/21/19 08:59 07/02/19 20:42 Lisy Lai M.D. Jul 03, 2019 10:43
--- NOTE | 2019-07-03 10:52 | NUR ---
NURSE NOTES: Levophed decreased by 1cc; current rate is 9.25cc/hr. BP 122/53; HR 72, no respiratory distress noted. ALEXANDRA Livingston made aware.
--- NOTE | 2019-07-03 11:23 | NUR ---
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 99.4 HR 70 RR 21 B/P 117/61 FIO2 40% H/H 7.6/24.2 ESR 70 IS: IVF D5NS @ 50ML/HR LEVOPHED GTT CEFEPIME IV KEPPRA IV DILANTIN IV TRANSFUSE PRBC'S ICU STATUS
--- NOTE | 2019-07-03 11:40 | Nephrology Progress Note ---
Assessment/Plan Problem List: (1) Septic shock (2) Hypothyroidism (3) Upper GI bleed (4) Respiratory failure, [id number] (5) Anemia Assessment Sepsis Shock on pressors GI Bleed Low Na and high K UTI HypoThyroidism Tracheostomy dependence Respiratory failure, [id number] Alzheimer's Feeding by G-tube Plan monitor dilantin and phenobarb level- med mgt for sz per neuro Albumin bolus prn as Cr rising consider transfusion as needed On Midodrine On GT feeding fluid challenge as needed adjust IV fluids transfuse as needed Monitor lytes and renal parametrs urine studies per orders Subjective ROS Limited/Unobtainable: Yes Objective Objective Last 24 Hour Vital Signs Date Time Temp Pulse Resp B/P (MAP) Pulse Ox O2 Delivery O2 Flow Rate FiO2 07/03/19 11:00 122/55 07/03/19 11:00 71 16 128/59 (82) 100 07/03/19 10:51 67 17 35 07/03/19 10:00 134/61 07/03/19 10:00 72 16 134/61 (85) 99 07/03/19 09:00 72 17 124/54 (77) 100 07/03/19 09:00 124/54 07/03/19 08:53 72 21 35 07/03/19 08:00 Mechanical Ventilator 07/03/19 08:00 99.4 70 16 117/61 (79) 100 07/03/19 08:00 117/61 07/03/19 08:00 35 07/03/19 08:00 72 07/03/19 07:00 72 17 133/55 (81) 100 07/03/19 06:30 73 16 126/52 (76) 100 07/03/19 06:30 70 16 35 07/03/19 06:00 68 16 121/59 (79) 100 07/03/19 06:00 121/59 07/03/19 05:30 70 21 128/58 (81) 100 07/03/19 05:13 74 18 35 07/03/19 05:00 128/72 07/03/19 05:00 73 19 128/72 (90) 100 07/03/19 04:30 65 16 97/51 (66) 99 07/03/19 04:00 Mechanical Ventilator 07/03/19 04:00 35 07/03/19 04:00 111/50 07/03/19 04:00 99.0 71 17 111/50 (70) 100 07/03/19 03:51 72 07/03/19 03:30 74 19 133/56 (81) 100 07/03/19 03:00 70 16 123/58 (79) 100 07/03/19 03:00 123/58 07/03/19 02:54 69 16 35 07/03/19 02:30 69 16 108/50 (69) 99 07/03/19 02:15 69 17 113/50 (71) 100 07/03/19 02:00 100/48 07/03/19 02:00 66 16 100/48 (65) 99 07/03/19 01:45 68 16 95/52 (66) 99 07/03/19 01:30 72 18 111/56 (74) 100 07/03/19 01:15 70 17 108/53 (71) 99 07/03/19 01:00 119/48 07/03/19 01:00 70 18 119/48 (71) 100 07/03/19 00:53 75 19 35 07/03/19 00:30 71 17 117/55 (75) 99 07/03/19 00:17 71 07/03/19 00:15 72 18 132/52 (78) 100 07/03/19 00:00 35 07/03/19 00:00 99.4 73 20 129/62 (84) 100 07/03/19 00:00 129/62 07/03/19 00:00 Mechanical Ventilator 07/02/19 23:30 72 19 126/58 (80) 100 07/02/19 23:15 72 15 128/51 (76) 100 07/02/19 23:00 71 14 128/55 (79) 100 07/02/19 23:00 128/55 07/02/19 22:59 69 18 35 07/02/19 22:45 68 19 129/58 (81) 100 07/02/19 22:40 69 20 121/51 (74) 100 07/02/19 22:35 68 19 120/53 (75) 100 07/02/19 22:30 116/62 07/02/19 22:30 67 18 116/62 (80) 100 07/02/19 22:25 66 18 112/53 (72) 100 07/02/19 22:20 64 19 116/64 (81) 100 07/02/19 22:15 65 15 105/51 (69) 100 07/02/19 22:10 87/45 07/02/19 22:10 57 16 87/45 (59) 99 07/02/19 22:05 61 16 71/33 (46) 99 07/02/19 22:05 71/33 07/02/19 22:00 69/35 07/02/19 22:00 61 16 69/35 (46) 98 07/02/19 21:45 63 18 73/42 (52) 100 07/02/19 21:45 73/42 07/02/19 21:41 66 20 87/42 (57) 98 07/02/19 21:30 65 18 100 07/02/19 21:15 64 18 99 07/02/19 21:00 64 20 129/58 (81) 100 07/02/19 20:58 65 16 35 07/02/19 20:45 60 16 117/55 (75) 99 07/02/19 20:30 65 16 125/47 (73) 100 07/02/19 20:00 35 07/02/19 20:00 98.5 78 19 123/58 (79) 100 07/02/19 20:00 Mechanical Ventilator 07/02/19 19:42 71 07/02/19 19:30 75 17 147/70 (95) 100 07/02/19 19:00 70 18 143/52 (82) 100 07/02/19 18:58 143/55 07/02/19 18:39 78 17 35 07/02/19 18:00 74 18 112/49 (70) 99 07/02/19 18:00 112/49 07/02/19 17:00 123/56 07/02/19 17:00 75 19 120/46 (70) 99 07/02/19 16:41 80 26 35 07/02/19 16:00 98.6 77 17 134/64 (87) 99 07/02/19 16:00 125/59 07/02/19 16:00 35 07/02/19 16:00 Mechanical Ventilator 07/02/19 16:00 74 07/02/19 15:02 78 21 35 07/02/19 15:00 78 18 125/59 (81) 99 07/02/19 15:00 126/64 07/02/19 14:00 82 16 90/65 (73) 99 07/02/19 14:00 117/51 07/02/19 13:00 74 16 129/61 (83) 100 07/02/19 13:00 120/50 07/02/19 12:49 70 16 35 07/02/19 12:00 Mechanical Ventilator 07/02/19 12:00 35 07/02/19 12:00 98.5 65 17 122/50 (74) 99 07/02/19 12:00 124/43 07/02/19 12:00 75 Intake and Output 07/02/19 07/03/19 19:00 07:00 Intake Total 1731.750 ml 1894.00 ml Output Total 985 ml 845 ml Balance 746.750 ml 1049.00 ml IV Total 941.750 ml 1094.00 ml Tube Feeding 690 ml 600 ml Other 100 ml 200 ml Output Urine Total 985 ml 845 ml Laboratory Tests 07/02/19 16:49: Vancomycin Level Trough 38.7H 07/03/19 03:40: White Blood Count 6.8, Red Blood Count 2.78L, Hemoglobin 7.6L, Hematocrit 24.2L , Mean Corpuscular Volume 87, Mean Corpuscular Hemoglobin 27.6, Mean Corpuscular Hemoglobin Concent 31.6L, Red Cell Distribution Width 16.1H, Platelet Count 330, Mean Platelet Volume 7.6, Neutrophils (%) (Auto) , Lymphocytes (%) (Auto) , Monocytes (%) (Auto) , Eosinophils (%) (Auto) , Basophils (%) (Auto) , Differential Total Cells Counted 100, Neutrophils % ( Manual) 51, Lymphocytes % (Manual) 31, Monocytes % (Manual) 11H, Eosinophils % ( Manual) 7H, Basophils % (Manual) 0, Band Neutrophils 0, Platelet Estimate Adequate, Platelet Morphology Normal, Hypochromasia 1+, Anisocytosis 1+, Erythrocyte Sedimentation Rate 70H, Sodium Level 143, Potassium Level 4.3, Chloride Level 111H, Carbon Dioxide Level 25, Anion Gap 7, Blood Urea Nitrogen 21H, Creatinine 1.3, Estimat Glomerular Filtration Rate 54.6, Glucose Level 131H , Calcium Level 8.2L, Phosphorus Level 2.4L, Magnesium Level 1.8, Total Bilirubin 0.2, Aspartate Amino Transf (AST/SGOT) 13L, Alanine Aminotransferase ( ALT/SGPT) 21, Alkaline Phosphatase 180H, C-Reactive Protein, Quantitative 6.5H, Total Protein 5.9L, Albumin 2.0L, Globulin 3.9, Albumin/Globulin Ratio 0.5L, Phenytoin (Dilantin) Level 19.2, Phenobarbital Level 22.6 Height (Feet): 5 Height (Inches): 8.00 Weight (Pounds): 148 General Appearance: no apparent distress EENT: other - vented Respiratory/Chest: decreased breath sounds Abdomen: distended Objective no change Sav Salvador MD Jul 03, 2019 11:40
--- NOTE | 2019-07-03 12:51 | NUR ---
NURSE NOTES: MD Joelle made rounds, update on PT given, Vancomycin d/c'ed for PT. Will continue to monitor PT.
--- NOTE | 2019-07-03 13:06 | NUR ---
NURSE NOTES: PT BP 130/57; levophed decreased to 8.25cc/hr per MD order. ALEXANDRA Livingston made aware.
--- NOTE | 2019-07-03 13:24 | NUR ---
*-* INSURANCE *-* ALL CLINICALS AND REVIEWS HAVE BEEN FAXED TO: TYSHAWN DUDLEYM:[employer]
--- NOTE | 2019-07-03 15:00 | NUR ---
NURSE NOTES: PT BP 124/65; Levophed titrated down to 7.25cc/hr. Will continue to monitor PT.
--- NOTE | 2019-07-03 15:11 | General Progress Note ---
Assessment/Plan Problem List: (1) Diabetes ICD Codes: E11.9 - Type 2 diabetes mellitus without complications SNOMED: 65491085 (2) HTN (hypertension) ICD Codes: I10 - Essential (primary) hypertension SNOMED: 07492476 (3) CVA (cerebral vascular accident) ICD Codes: I63.9 - Cerebral infarction, unspecified SNOMED: 874461108 (4) Severe protein-calorie malnutrition ICD Codes: E43 - Unspecified severe protein-calorie malnutrition SNOMED: 024707246 (5) Feeding by G-tube ICD Codes: Z93.1 - Gastrostomy status SNOMED: 382579756, 698674802 (6) Respiratory failure, [id number]-[id number] ICD Codes: J96.20 - Respiratory failure, [id number] SNOMED: 80586295 (7) Anemia ICD Codes: D64.9 - Anemia, unspecified SNOMED: 785950277 (8) Chronic respiratory failure ICD Codes: J96.10 - Chronic respiratory failure, unspecified whether with hypoxia or hypercapnia SNOMED: 68894239 (9) Septic shock ICD Codes: A41.9 - Sepsis, unspecified organism; R65.21 - Severe sepsis with septic shock SNOMED: 98314954 (10) Alzheimer's dementia ICD Codes: G30.9 - Alzheimer's disease, unspecified SNOMED: 23793847 (11) Severe sepsis ICD Codes: A41.9 - Sepsis, unspecified organism; R65.20 - Severe sepsis without septic shock SNOMED: 01201206 (12) Hypothyroidism ICD Codes: E03.9 - Hypothyroidism, unspecified SNOMED: 71335271 Status: unchanged Assessment/Plan: vent abx wean pressor cbc bmp am tranfuse prn neuro eval ltach eval Subjective Constitutional: Reports: weakness Allergies: Coded Allergies: NO KNOWN DRUG ALLERGIES (Verified Allergy, Unknown, 09/11/16) All Systems: reviewed and negative except above Subjective trach vent altered in icu Objective Last 24 Hour Vital Signs Date Time Temp Pulse Resp B/P (MAP) Pulse Ox O2 Delivery O2 Flow Rate FiO2 07/03/19 15:00 73 19 124/65 (84) 100 07/03/19 15:00 124/65 07/03/19 14:00 115/54 07/03/19 14:00 73 19 115/54 (74) 99 07/03/19 13:27 73 18 35 07/03/19 13:00 130/57 07/03/19 13:00 73 19 130/57 (81) 100 07/03/19 12:00 99.6 70 16 112/50 (70) 99 07/03/19 12:00 112/50 07/03/19 12:00 69 07/03/19 12:00 Mechanical Ventilator 07/03/19 12:00 35 07/03/19 11:00 122/55 07/03/19 11:00 71 16 128/59 (82) 100 07/03/19 10:51 67 17 35 07/03/19 10:00 134/61 07/03/19 10:00 72 16 134/61 (85) 99 07/03/19 09:00 72 17 124/54 (77) 100 07/03/19 09:00 124/54 07/03/19 08:53 72 21 35 07/03/19 08:00 Mechanical Ventilator 07/03/19 08:00 99.4 70 16 117/61 (79) 100 07/03/19 08:00 117/61 07/03/19 08:00 35 07/03/19 08:00 72 07/03/19 07:00 72 17 133/55 (81) 100 07/03/19 06:30 73 16 126/52 (76) 100 07/03/19 06:30 70 16 35 07/03/19 06:00 68 16 121/59 (79) 100 07/03/19 06:00 121/59 07/03/19 05:30 70 21 128/58 (81) 100 07/03/19 05:13 74 18 35 07/03/19 05:00 128/72 07/03/19 05:00 73 19 128/72 (90) 100 07/03/19 04:30 65 16 97/51 (66) 99 07/03/19 04:00 Mechanical Ventilator 07/03/19 04:00 35 07/03/19 04:00 111/50 07/03/19 04:00 99.0 71 17 111/50 (70) 100 07/03/19 03:51 72 07/03/19 03:30 74 19 133/56 (81) 100 07/03/19 03:00 70 16 123/58 (79) 100 07/03/19 03:00 123/58 07/03/19 02:54 69 16 35 07/03/19 02:30 69 16 108/50 (69) 99 07/03/19 02:15 69 17 113/50 (71) 100 07/03/19 02:00 100/48 07/03/19 02:00 66 16 100/48 (65) 99 07/03/19 01:45 68 16 95/52 (66) 99 07/03/19 01:30 72 18 111/56 (74) 100 07/03/19 01:15 70 17 108/53 (71) 99 07/03/19 01:00 119/48 07/03/19 01:00 70 18 119/48 (71) 100 07/03/19 00:53 75 19 35 07/03/19 00:30 71 17 117/55 (75) 99 07/03/19 00:17 71 07/03/19 00:15 72 18 132/52 (78) 100 07/03/19 00:00 35 07/03/19 00:00 99.4 73 20 129/62 (84) 100 07/03/19 00:00 129/62 07/03/19 00:00 Mechanical Ventilator 07/02/19 23:30 72 19 126/58 (80) 100 07/02/19 23:15 72 15 128/51 (76) 100 07/02/19 23:00 71 14 128/55 (79) 100 07/02/19 23:00 128/55 07/02/19 22:59 69 18 35 07/02/19 22:45 68 19 129/58 (81) 100 07/02/19 22:40 69 20 121/51 (74) 100 07/02/19 22:35 68 19 120/53 (75) 100 07/02/19 22:30 116/62 07/02/19 22:30 67 18 116/62 (80) 100 07/02/19 22:25 66 18 112/53 (72) 100 07/02/19 22:20 64 19 116/64 (81) 100 07/02/19 22:15 65 15 105/51 (69) 100 07/02/19 22:10 87/45 07/02/19 22:10 57 16 87/45 (59) 99 07/02/19 22:05 61 16 71/33 (46) 99 07/02/19 22:05 71/33 07/02/19 22:00 69/35 07/02/19 22:00 61 16 69/35 (46) 98 07/02/19 21:45 63 18 73/42 (52) 100 07/02/19 21:45 73/42 07/02/19 21:41 66 20 87/42 (57) 98 07/02/19 21:30 65 18 100 07/02/19 21:15 64 18 99 07/02/19 21:00 64 20 129/58 (81) 100 07/02/19 20:58 65 16 35 07/02/19 20:45 60 16 117/55 (75) 99 07/02/19 20:30 65 16 125/47 (73) 100 07/02/19 20:00 35 07/02/19 20:00 98.5 78 19 123/58 (79) 100 07/02/19 20:00 Mechanical Ventilator 07/02/19 19:42 71 07/02/19 19:30 75 17 147/70 (95) 100 07/02/19 19:00 70 18 143/52 (82) 100 07/02/19 18:58 143/55 07/02/19 18:39 78 17 35 07/02/19 18:00 74 18 112/49 (70) 99 07/02/19 18:00 112/49 07/02/19 17:00 123/56 07/02/19 17:00 75 19 120/46 (70) 99 07/02/19 16:41 80 26 35 07/02/19 16:00 98.6 77 17 134/64 (87) 99 07/02/19 16:00 125/59 07/02/19 16:00 35 07/02/19 16:00 Mechanical Ventilator 07/02/19 16:00 74 Intake and Output 07/02/19 07/03/19 18:59 06:59 Intake Total 1721.750 ml 1892.75 ml Output Total 1065 ml 785 ml Balance 656.750 ml 1107.75 ml IV Total 991.750 ml 1032.75 ml Tube Feeding 630 ml 660 ml Other 100 ml 200 ml Output Urine Total 1065 ml 785 ml Laboratory Tests 07/02/19 16:49: Vancomycin Level Trough 38.7H 07/03/19 03:40: White Blood Count 6.8, Red Blood Count 2.78L, Hemoglobin 7.6L, Hematocrit 24.2L , Mean Corpuscular Volume 87, Mean Corpuscular Hemoglobin 27.6, Mean Corpuscular Hemoglobin Concent 31.6L, Red Cell Distribution Width 16.1H, Platelet Count 330, Mean Platelet Volume 7.6, Neutrophils (%) (Auto) , Lymphocytes (%) (Auto) , Monocytes (%) (Auto) , Eosinophils (%) (Auto) , Basophils (%) (Auto) , Differential Total Cells Counted 100, Neutrophils % ( Manual) 51, Lymphocytes % (Manual) 31, Monocytes % (Manual) 11H, Eosinophils % ( Manual) 7H, Basophils % (Manual) 0, Band Neutrophils 0, Platelet Estimate Adequate, Platelet Morphology Normal, Hypochromasia 1+, Anisocytosis 1+, Erythrocyte Sedimentation Rate 70H, Sodium Level 143, Potassium Level 4.3, Chloride Level 111H, Carbon Dioxide Level 25, Anion Gap 7, Blood Urea Nitrogen 21H, Creatinine 1.3, Estimat Glomerular Filtration Rate 54.6, Glucose Level 131H , Calcium Level 8.2L, Phosphorus Level 2.4L, Magnesium Level 1.8, Total Bilirubin 0.2, Aspartate Amino Transf (AST/SGOT) 13L, Alanine Aminotransferase ( ALT/SGPT) 21, Alkaline Phosphatase 180H, C-Reactive Protein, Quantitative 6.5H, Total Protein 5.9L, Albumin 2.0L, Globulin 3.9, Albumin/Globulin Ratio 0.5L, Phenytoin (Dilantin) Level 19.2, Phenobarbital Level 22.6 Height (Feet): 5 Height (Inches): 8.00 Weight (Pounds): 148 General Appearance: lethargic EENT: normal ENT inspection Neck: normal alignment Cardiovascular: normal peripheral pulses, normal rate, regular rhythm Respiratory/Chest: chest wall non-tender, lungs clear, normal breath sounds Abdomen: normal bowel sounds, non tender, soft Extremities: normal inspection Edema: no edema noted Arm (L), no edema noted Arm (R), no edema noted Leg (L), no edema noted Leg (R), no edema noted Pedal (L), no edema noted Pedal (R), no edema noted Generalized Neurologic: motor weakness Skin: normal pigmentation, warm/dry Gato Viveros DO Jul 03, 2019 15:11
--- NOTE | 2019-07-03 15:53 | NUR ---
NURSE NOTES: Called blood bank to check if blood is ready. 1 unit pRBC is ready according to electroneurodiagnostic technician. Will go sampler pickup blood.
--- NOTE | 2019-07-03 16:54 | NUR ---
NURSE NOTES: 1pRBC transfusion started @ 1640. BP 109/56; HR 68; T: 99.8 axillary. 2nd RN confirmation done by ALEXANDRA Livingston. Fan has been placed for precautionary cooling measures. Will continue to monitor PT.
--- NOTE | 2019-07-03 17:52 | Surgery Progress Note ---
Surgery Progress Note Subjective Additional Comments ill appearing in ICU labs noted. ESRCRP on IV abx cont with ICU care Objective Last 24 Hour Vital Signs Date Time Temp Pulse Resp B/P (MAP) Pulse Ox O2 Delivery O2 Flow Rate FiO2 07/03/19 17:01 67 16 35 07/03/19 17:00 124/64 07/03/19 17:00 99.6 68 17 124/62 (82) 100 07/03/19 16:40 99.8 65 16 101/49 (66) 99 07/03/19 16:00 73 07/03/19 16:00 Mechanical Ventilator 07/03/19 16:00 99.8 71 19 109/56 (73) 100 07/03/19 16:00 102/50 07/03/19 16:00 35 07/03/19 15:00 73 19 124/65 (84) 100 07/03/19 15:00 124/65 07/03/19 14:35 74 17 35 07/03/19 14:00 115/54 07/03/19 14:00 73 19 115/54 (74) 99 07/03/19 13:27 73 18 35 07/03/19 13:00 130/57 07/03/19 13:00 73 19 130/57 (81) 100 07/03/19 12:00 99.6 70 16 112/50 (70) 99 07/03/19 12:00 112/50 07/03/19 12:00 69 07/03/19 12:00 Mechanical Ventilator 07/03/19 12:00 35 07/03/19 11:00 122/55 07/03/19 11:00 71 16 128/59 (82) 100 07/03/19 10:51 67 17 35 07/03/19 10:00 134/61 07/03/19 10:00 72 16 134/61 (85) 99 07/03/19 09:00 72 17 124/54 (77) 100 07/03/19 09:00 124/54 07/03/19 08:53 72 21 35 07/03/19 08:00 Mechanical Ventilator 07/03/19 08:00 99.4 70 16 117/61 (79) 100 07/03/19 08:00 117/61 07/03/19 08:00 35 07/03/19 08:00 72 07/03/19 07:00 72 17 133/55 (81) 100 07/03/19 06:30 73 16 126/52 (76) 100 07/03/19 06:30 70 16 35 07/03/19 06:00 68 16 121/59 (79) 100 07/03/19 06:00 121/59 07/03/19 05:30 70 21 128/58 (81) 100 07/03/19 05:13 74 18 35 07/03/19 05:00 128/72 07/03/19 05:00 73 19 128/72 (90) 100 07/03/19 04:30 65 16 97/51 (66) 99 07/03/19 04:00 Mechanical Ventilator 07/03/19 04:00 35 07/03/19 04:00 111/50 07/03/19 04:00 99.0 71 17 111/50 (70) 100 07/03/19 03:51 72 07/03/19 03:30 74 19 133/56 (81) 100 07/03/19 03:00 70 16 123/58 (79) 100 07/03/19 03:00 123/58 07/03/19 02:54 69 16 35 07/03/19 02:30 69 16 108/50 (69) 99 07/03/19 02:15 69 17 113/50 (71) 100 07/03/19 02:00 100/48 07/03/19 02:00 66 16 100/48 (65) 99 07/03/19 01:45 68 16 95/52 (66) 99 07/03/19 01:30 72 18 111/56 (74) 100 07/03/19 01:15 70 17 108/53 (71) 99 07/03/19 01:00 119/48 07/03/19 01:00 70 18 119/48 (71) 100 07/03/19 00:53 75 19 35 07/03/19 00:30 71 17 117/55 (75) 99 07/03/19 00:17 71 07/03/19 00:15 72 18 132/52 (78) 100 07/03/19 00:00 35 07/03/19 00:00 99.4 73 20 129/62 (84) 100 07/03/19 00:00 129/62 07/03/19 00:00 Mechanical Ventilator 07/02/19 23:30 72 19 126/58 (80) 100 07/02/19 23:15 72 15 128/51 (76) 100 07/02/19 23:00 71 14 128/55 (79) 100 07/02/19 23:00 128/55 07/02/19 22:59 69 18 35 07/02/19 22:45 68 19 129/58 (81) 100 07/02/19 22:40 69 20 121/51 (74) 100 07/02/19 22:35 68 19 120/53 (75) 100 07/02/19 22:30 116/62 07/02/19 22:30 67 18 116/62 (80) 100 07/02/19 22:25 66 18 112/53 (72) 100 07/02/19 22:20 64 19 116/64 (81) 100 07/02/19 22:15 65 15 105/51 (69) 100 07/02/19 22:10 87/45 07/02/19 22:10 57 16 87/45 (59) 99 07/02/19 22:05 61 16 71/33 (46) 99 07/02/19 22:05 71/33 07/02/19 22:00 69/35 07/02/19 22:00 61 16 69/35 (46) 98 07/02/19 21:45 63 18 73/42 (52) 100 07/02/19 21:45 73/42 07/02/19 21:41 66 20 87/42 (57) 98 07/02/19 21:30 65 18 100 07/02/19 21:15 64 18 99 07/02/19 21:00 64 20 129/58 (81) 100 07/02/19 20:58 65 16 35 07/02/19 20:45 60 16 117/55 (75) 99 07/02/19 20:30 65 16 125/47 (73) 100 07/02/19 20:00 35 07/02/19 20:00 98.5 78 19 123/58 (79) 100 07/02/19 20:00 Mechanical Ventilator 07/02/19 19:42 71 07/02/19 19:30 75 17 147/70 (95) 100 07/02/19 19:00 70 18 143/52 (82) 100 07/02/19 18:58 143/55 07/02/19 18:39 78 17 35 07/02/19 18:00 74 18 112/49 (70) 99 07/02/19 18:00 112/49 I&O Intake and Output 07/02/19 07/03/19 18:59 06:59 Intake Total 1721.750 ml 1892.75 ml Output Total 1065 ml 785 ml Balance 656.750 ml 1107.75 ml IV Total 991.750 ml 1032.75 ml Tube Feeding 630 ml 660 ml Other 100 ml 200 ml Output Urine Total 1065 ml 785 ml Dressing: saturated Wound: other Drains: other Cardiovascular: RSR Respiratory: decreased breath sounds Abdomen: soft, non-tender, decreased bowel sounds Extremities: no cyanosis, other Laboratory Tests Test 07/03/19 03:40 White Blood Count 6.8 K/UL (4.8-10.8) Red Blood Count 2.78 M/UL (4.70-6.10) L Hemoglobin 7.6 G/DL (14.2-18.0) L Hematocrit 24.2 % (42.0-52.0) L Mean Corpuscular Volume 87 FL (80-99) Mean Corpuscular Hemoglobin 27.6 PG (27.0-31.0) Mean Corpuscular Hemoglobin Concent 31.6 G/DL (32.0-36.0) L Red Cell Distribution Width 16.1 % (11.6-14.8) H Platelet Count 330 K/UL (150-450) Mean Platelet Volume 7.6 FL (6.5-10.1) Neutrophils (%) (Auto) % (45.0-75.0) Lymphocytes (%) (Auto) % (20.0-45.0) Monocytes (%) (Auto) % (1.0-10.0) Eosinophils (%) (Auto) % (0.0-3.0) Basophils (%) (Auto) % (0.0-2.0) Differential Total Cells Counted 100 Neutrophils % (Manual) 51 % (45-75) Lymphocytes % (Manual) 31 % (20-45) Monocytes % (Manual) 11 % (1-10) H Eosinophils % (Manual) 7 % (0-3) H Basophils % (Manual) 0 % (0-2) Band Neutrophils 0 % (0-8) Platelet Estimate Adequate Platelet Morphology Normal Hypochromasia 1+ Anisocytosis 1+ Erythrocyte Sedimentation Rate 70 MM/HR (0-20) H Sodium Level 143 MMOL/L (136-145) Potassium Level 4.3 MMOL/L (3.5-5.1) Chloride Level 111 MMOL/L (98-107) H Carbon Dioxide Level 25 MMOL/L (21-32) Anion Gap 7 mmol/L (5-15) Blood Urea Nitrogen 21 mg/dL (7-18) H Creatinine 1.3 MG/DL (0.55-1.30) Estimat Glomerular Filtration Rate 54.6 mL/min (>60) Glucose Level 131 MG/DL (74-106) H Calcium Level 8.2 MG/DL (8.5-10.1) L Phosphorus Level 2.4 MG/DL (2.5-4.9) L Magnesium Level 1.8 MG/DL (1.8-2.4) Total Bilirubin 0.2 MG/DL (0.2-1.0) Aspartate Amino Transf (AST/SGOT) 13 U/L (15-37) L Alanine Aminotransferase (ALT/SGPT) 21 U/L (12-78) Alkaline Phosphatase 180 U/L (46-116) H C-Reactive Protein, Quantitative 6.5 mg/dL (0.00-0.90) H Total Protein 5.9 G/DL (6.4-8.2) L Albumin 2.0 G/DL (3.4-5.0) L Globulin 3.9 g/dL Albumin/Globulin Ratio 0.5 (1.0-2.7) L Phenytoin (Dilantin) Level 19.2 ug/mL (10-20) Phenobarbital Level 22.6 ug/mL (15-40) Plan Problems: (1) Severe protein-calorie malnutrition Assessment & Plan: DAILY ESTIMATED NEEDS: Needs based on Critical care, underweight TF APPRENTICE INSTRUMENT TECHNICIAN 56.8 30-35 kcals/kg 3266-7167 total kcals 1.25-2 g protein/kg 71-113.6 g total protein 25-30 mL/kg 6253-1819 total fluid mLs NUTRITION DIAGNOSIS: * Increased kcal/prot intake needs R/T sepsis and underweight status as evidenced by pt adm w/ critically elev WBC (35.7*), febrile, @68% [place] Body Weight. * Swallowing difficulty R/T respiratory status as evidenced by pt vent dep via trach, PEG dep. ENTERAL NUTRITION RECOMMENDATIONS: Nepro @45mL/hr x 22hr to provide 990mL, 1782kcal, 80g pro, 720mL free water -When Hemodynamically stable, start Nepro @ 15mL/hr for 6 hrs. -Advance as tolerated 10mL q 4-6 hrs to goal. -TF @goal meets 100% est needs. -Flush per MD/ HOB >30 degrees. ADDITIONAL RECOMMENDATIONS: * Calibrated bedscale weight for accurate CBW + weekly wt monitoring * Per SNF: Ht of 6'1", Wt 125# (05/2019) * TF recs as above when medically stable * Monitor for cont'd need of renal formula (K 5.5) * Monitor lytes and hydration status. (2) Feeding by G-tube Assessment & Plan: g tube changed (3) Respiratory failure, [id number] (4) Septic shock Assessment & Plan: Acute decline with hypertension tachycardia now on pressors Labs as above Detailed examination done and abdominal distention noted. kub okay cxr noted exam stable will follow with recs thank you (5) Severe sepsis (6) GT SITE LEAKING Assessment & Plan: Patient identified worsening G-tube site leakage and cellulitis. This has been noted on prior admissions which is cared for. Plan for placement as below Pt presents with contractures. Skin erosions to abdominal region, and multiple areas of non-blanching erythema. Skin erosion noted to abdomen extending around GT and mostly to L abdominal area, skin is grossly red and excoriated. Furuncle noted to L flank oozing moderate amt purulent exudate. Non-blanchable erythema without fluctuance noted to L lateral malleolus (L) 1.5cm x (W)3cm. Non-blanchable erythema without fluctuance noted to lateral L foot (L)1cm x (W) 1cm. Non-blanchable erythema noted to sacral cleft. No other skin concerns noted. Tx.Plan: Apply Zinc Oxide Paste to GT site and excoriated areas on abd daily and prn. Apply Betadine to Boil L flank Daily .Cover with Optifoam drsg. Change daily and prn. Apply Moisture Barrier Paste to sacrum. Cover with Optifoam drsg. Change every 3 days and prn. Apply Cavilon to Non-blanchable areas L foot and bilat heels. Cover each site with Optifoam drsg. Change every 7 days and prn. Reposition at least every 2hours or as tolerated. Place pillow between knees. Off-load heels with pillow. APM/RENO Mattress overlay. Quirino Bernard Jul 03, 2019 17:52
--- NOTE | 2019-07-03 19:00 | NUR ---
HAND-OFF: Report and PT given to ODILIA Carrington.
--- NOTE | 2019-07-03 19:35 | NUR ---
NURSE NOTES: Patient received from Kit HARTLEY. Patient is obtunded, opens eyes spontaneously. Patient is ventilator dependant portex 8, AC 16, 600tv, 30% FiO2 and no peep. Patient responds to painful stimuli. Patient is contraacted at lower and upper extremities. No independent movement from patient. Gt noted, Osmolite 1.5 at 60ml/hr. minimal residual of 20ml. minor rashes around skin. Patient has ALEXI PICC infusing Levophed at 1.933mcg/min, D5Ns at 50ml/hr 1 unit PRBC that is almost finished. Patient [id number], SCD's ar priscilla, side rails are padded. gag reflex noted. minimal secretions. Ventilator inspected, suctioned inspected, all safety measures are in place. Will continue to monitor.
--- NOTE | 2019-07-03 20:02 | NUR ---
NURSE NOTES: Patient repositioned and given oral care. PRBC finished infusing. No adverse reaction observed. Patient continue on pressors. Titrated down by 1ml, now at 1.833mcg/min. Minor leak around gt site, MD already aware. Secured with dressings.
[2019-07-03] MEDS: Dyna-Hex 2% Top Sol 2oz TOPIC SCH (20:08)
[2019-07-03] MEDS: Zinc Oxide Oint 2oz TOPIC SCH (20:09)
--- NOTE | 2019-07-03 20:36 | Hematology/Onc Progress Note ---
Assessment/Plan Assessment/Plan ASSESSMENT/RECOMMENDATIONS # Anemia of chronic disease due to underlying chronic medical issues, multifactorial --> Anemia w/u has been reviewed and c/w acd ferritin 635, tibc 160 --> No evidence of hemolysis is noted, peripheral smear has been reviewed. --> Hgb goal >7. Transfuse prn. --> Epogen or iron at this time is not particularly indicated --> unable to obtain consent, with no family --> r/o hemolysis as well --> hgb 7.5-->8-->8.7-->8.2-->7.8-->8-->7.4-->8.8-->8.3-->8->9.5->8.2-->7.5->7.6 --> 06/26: EGD/COLO with diverticulosis --> spep is negative for bands # Leukocytosis. Likely related to underlying infection versus reactive process. patient with septic shock on admission --> Peripheral has been reviewed--> rouleaux formation on smear --> Medications have been reviewed --> Imaging has been reviewed. CXR shows Suboptimal positioning. No interval consolidation, overt edema or other acute cardiopulmonary findings. 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 Greatly appreciate consultation. Subjective HEENT: Denies: no symptoms, eye pain, blurred vision, tearing, double vision, ear pain, ear discharge, nose pain, nose congestion, throat pain, throat swelling, mouth pain, mouth swelling, other Cardiovascular: Denies: no symptoms, chest pain, edema, irregular heart rate, lightheadedness, palpitations, syncope, other Respiratory: Denies: no symptoms, cough, shortness of breath, SOB with excertion, SOB at rest, sputum, wheezing, other Gastrointestinal/Abdominal: Denies: no symptoms, abdomen distended, abdominal pain, black stools, tarry stools, blood in stool, constipated, diarrhea, difficulty swallowing, nausea, poor appetite, poor fluid intake, rectal bleeding , vomiting, other Genitourinary: Denies: no symptoms, burning, discharge, frequency, flank pain, hematuria, incontinence, pain, urgency, other Neurologic/Psychiatric: Denies: no symptoms, anxiety, depressed, emotional problems, headache, numbness, paresthesia, pre-existing deficit, seizure, tingling, tremors, weakness, other Allergies: Coded Allergies: NO KNOWN DRUG ALLERGIES (Verified Allergy, Unknown, 09/11/16) Subjective 06/17: blood transfusion completed, on low dose pressors, no bleeding noted 06/19: liya rn, no major events, cbc reviewed, tube feeds ongoing 06/22: no major changes, no bleeding or night sweats, on abx, in sariah 06/23: no f/c, no bleeding, labs noted, in sariah, hgb 8, plt 120k 06/24: labs reviewed, no bleeding, no night sweats, no bleeding 06/25: heparin held for potential bleed, gt is clamped, no events, no fc 06/26: for egd today with gi, bleeding noted, requiring prbc transf 06/27: gi procedure was done today and noted for diverticulosis, otherwise cbc stable 06/28: remains stable, being treated for gerd, hgb 8, no bleeding 06/29: no bleeding noted, no chills, no night sweats, no fc 06/30: no bleeding, on pressors, no major changes hgb 8.2 07/01: on pressors, with gt feeds, seen by gi wbc is better 07/02: 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, is off pressor in icu, labs noted, liya rn 07/03: on vent, prbc transfusion going, no major changes, no bleeding Objective Objective Current Medications Medications (Trade) Dose Ordered Sig/Wanda Route PRN Reason Start Time Stop Time Status Last Admin Dose Admin Acetaminophen (Tylenol) 650 mg Q4H PRN GT fever (temp>100.5F) 06/29/19 19:33 07/29/19 19:32 06/30/19 18:54 Cefepime HCl 1 gm/ Dextrose 55 ml @ 110 mls/hr EVERY 12 HOURS IVPB 06/30/19 13:30 07/07/19 13:29 07/03/19 20:09 Chlorhexidine Gluconate (Jasmin-Hex 2%) 1 applic DAILY@2000 TOPIC 06/29/19 20:00 07/20/19 19:59 07/03/19 20:08 Dextrose/Sodium Chloride 1,000 ml @ 50 mls/hr Q20H IV 06/30/19 14:30 07/30/19 14:29 07/03/19 02:26 Lansoprazole (Prevacid) 30 mg BID GT 07/01/19 18:00 07/31/19 17:59 07/03/19 18:15 Levetiracetam 100 ml @ 400 mls/hr Q12HR IVPB 07/03/19 09:00 08/02/19 08:59 07/03/19 20:30 Levothyroxine Sodium (Synthroid) 88 mcg DAILY@0630 GT 06/30/19 06:30 07/20/19 06:29 07/03/19 06:04 Lorazepam (Ativan 2mg/ml 1ml) 2 mg Q4H PRN IVP For Seizures 06/29/19 19:33 07/06/19 19:32 Midodrine (Pro-Amatine) 10 mg EVERY 8 HOURS GT 07/01/19 14:00 07/17/19 12:59 07/03/19 06:04 Norepinephrine Bitartrate 4 mg/ Dextrose 250 ml @ 0 mls/hr Q24H IV 06/29/19 22:30 07/29/19 22:29 07/03/19 19:30 Ondansetron HCl (Zofran) 4 mg Q6H PRN IVP Nausea & Vomiting 06/29/19 19:33 07/29/19 19:32 Phenobarbital (PHENobarbital) 60 mg Q8HR NG 07/01/19 14:00 07/31/19 13:59 07/03/19 15:11 Phenytoin 200 mg/ Sodium Chloride 59 ml @ 118 mls/hr Q12HR IVPB 07/03/19 09:00 08/02/19 08:59 07/03/19 09:29 Polyethylene Glycol (Miralax) 17 gm DAILYPRN PRN GT Constipation 06/29/19 19:33 07/29/19 19:32 Sucralfate (Carafate) 1 gm EVERY 8 HOURS GT 06/29/19 22:00 07/21/19 08:59 07/03/19 16:10 Zinc Oxide (Zinc Oxide) 1 applic QHS TOPIC 06/29/19 21:00 07/21/19 08:59 07/03/19 20:09 Last 24 Hour Vital Signs Date Time Temp Pulse Resp B/P (MAP) Pulse Ox O2 Delivery O2 Flow Rate FiO2 07/03/19 19:30 133/60 07/03/19 19:00 133/60 07/03/19 19:00 71 17 133/60 (84) 100 07/03/19 18:56 72 16 30 07/03/19 18:30 70 18 125/53 (77) 100 07/03/19 18:00 72 17 123/60 (81) 100 07/03/19 18:00 123/60 07/03/19 17:30 71 19 127/57 (80) 100 07/03/19 17:01 67 16 35 07/03/19 17:00 124/64 07/03/19 17:00 99.6 68 17 124/62 (82) 100 07/03/19 16:40 99.8 65 16 101/49 (66) 99 07/03/19 16:30 66 16 103/54 (70) 99 07/03/19 16:00 73 07/03/19 16:00 Mechanical Ventilator 07/03/19 16:00 99.8 71 19 109/56 (73) 100 07/03/19 16:00 102/50 07/03/19 16:00 35 07/03/19 15:30 74 18 122/58 (79) 99 07/03/19 15:00 73 19 124/65 (84) 100 07/03/19 15:00 124/65 07/03/19 14:35 74 17 35 07/03/19 14:30 70 18 107/48 (67) 100 07/03/19 14:00 115/54 07/03/19 14:00 73 19 115/54 (74) 99 07/03/19 13:30 74 18 127/49 (75) 99 07/03/19 13:27 73 18 35 07/03/19 13:00 130/57 07/03/19 13:00 73 19 130/57 (81) 100 07/03/19 12:30 73 17 120/56 (77) 100 07/03/19 12:00 99.6 70 16 112/50 (70) 99 07/03/19 12:00 112/50 07/03/19 12:00 69 07/03/19 12:00 Mechanical Ventilator 07/03/19 12:00 35 07/03/19 11:30 70 19 120/53 (75) 100 07/03/19 11:00 122/55 07/03/19 11:00 71 16 128/59 (82) 100 07/03/19 10:51 67 17 35 07/03/19 10:30 68 16 123/53 (76) 100 07/03/19 10:00 134/61 07/03/19 10:00 72 16 134/61 (85) 99 07/03/19 09:30 72 17 128/57 (80) 100 07/03/19 09:00 72 17 124/54 (77) 100 07/03/19 09:00 124/54 07/03/19 08:53 72 21 35 07/03/19 08:30 70 18 124/68 (86) 100 07/03/19 08:00 Mechanical Ventilator 07/03/19 08:00 99.4 70 16 117/61 (79) 100 07/03/19 08:00 117/61 07/03/19 08:00 35 07/03/19 08:00 72 07/03/19 07:30 71 16 128/76 (93) 100 07/03/19 07:00 72 17 133/55 (81) 100 07/03/19 06:30 73 16 126/52 (76) 100 07/03/19 06:30 70 16 35 07/03/19 06:00 68 16 121/59 (79) 100 07/03/19 06:00 121/59 07/03/19 05:30 70 21 128/58 (81) 100 07/03/19 05:13 74 18 35 07/03/19 05:00 128/72 07/03/19 05:00 73 19 128/72 (90) 100 07/03/19 04:30 65 16 97/51 (66) 99 07/03/19 04:00 Mechanical Ventilator 07/03/19 04:00 35 07/03/19 04:00 111/50 07/03/19 04:00 99.0 71 17 111/50 (70) 100 07/03/19 03:51 72 07/03/19 03:30 74 19 133/56 (81) 100 07/03/19 03:00 70 16 123/58 (79) 100 07/03/19 03:00 123/58 07/03/19 02:54 69 16 35 07/03/19 02:30 69 16 108/50 (69) 99 07/03/19 02:15 69 17 113/50 (71) 100 07/03/19 02:00 100/48 07/03/19 02:00 66 16 100/48 (65) 99 07/03/19 01:45 68 16 95/52 (66) 99 07/03/19 01:30 72 18 111/56 (74) 100 07/03/19 01:15 70 17 108/53 (71) 99 07/03/19 01:00 119/48 07/03/19 01:00 70 18 119/48 (71) 100 07/03/19 00:53 75 19 35 07/03/19 00:30 71 17 117/55 (75) 99 07/03/19 00:17 71 07/03/19 00:15 72 18 132/52 (78) 100 07/03/19 00:00 35 07/03/19 00:00 99.4 73 20 129/62 (84) 100 07/03/19 00:00 129/62 07/03/19 00:00 Mechanical Ventilator 07/02/19 23:30 72 19 126/58 (80) 100 07/02/19 23:15 72 15 128/51 (76) 100 07/02/19 23:00 71 14 128/55 (79) 100 07/02/19 23:00 128/55 07/02/19 22:59 69 18 35 07/02/19 22:45 68 19 129/58 (81) 100 07/02/19 22:40 69 20 121/51 (74) 100 07/02/19 22:35 68 19 120/53 (75) 100 07/02/19 22:30 116/62 07/02/19 22:30 67 18 116/62 (80) 100 07/02/19 22:25 66 18 112/53 (72) 100 07/02/19 22:20 64 19 116/64 (81) 100 07/02/19 22:15 65 15 105/51 (69) 100 07/02/19 22:10 87/45 07/02/19 22:10 57 16 87/45 (59) 99 07/02/19 22:05 61 16 71/33 (46) 99 07/02/19 22:05 71/33 07/02/19 22:00 69/35 07/02/19 22:00 61 16 69/35 (46) 98 07/02/19 21:45 63 18 73/42 (52) 100 07/02/19 21:45 73/42 07/02/19 21:41 66 20 87/42 (57) 98 07/02/19 21:30 65 18 100 07/02/19 21:15 64 18 99 07/02/19 21:00 64 20 129/58 (81) 100 07/02/19 20:58 65 16 35 07/02/19 20:45 60 16 117/55 (75) 99 07/02/19 20:30 65 16 125/47 (73) 100 07/02/19 20:00 35 07/02/19 20:00 98.5 78 19 123/58 (79) 100 07/02/19 20:00 Mechanical Ventilator 07/02/19 19:42 71 07/02/19 19:30 75 17 147/70 (95) 100 07/02/19 19:00 70 18 143/52 (82) 100 07/02/19 18:58 143/55 07/02/19 18:39 78 17 35 07/02/19 18:00 74 18 112/49 (70) 99 07/02/19 18:00 112/49 07/02/19 17:00 123/56 07/02/19 17:00 75 19 120/46 (70) 99 07/02/19 16:41 80 26 35 07/02/19 16:00 98.6 77 17 134/64 (87) 99 07/02/19 16:00 125/59 07/02/19 16:00 35 07/02/19 16:00 Mechanical Ventilator 07/02/19 16:00 74 07/02/19 15:02 78 21 35 07/02/19 15:00 78 18 125/59 (81) 99 07/02/19 15:00 126/64 07/02/19 14:00 82 16 90/65 (73) 99 07/02/19 14:00 117/51 07/02/19 13:00 74 16 129/61 (83) 100 07/02/19 13:00 120/50 07/02/19 12:49 70 16 35 07/02/19 12:00 Mechanical Ventilator 07/02/19 12:00 35 07/02/19 12:00 98.5 65 17 122/50 (74) 99 07/02/19 12:00 124/43 07/02/19 12:00 75 07/02/19 11:27 77 20 35 07/02/19 11:00 74 17 112/51 (71) 99 07/02/19 11:00 112/51 07/02/19 10:30 73 16 125/58 (80) 100 07/02/19 10:00 82/42 07/02/19 10:00 71 16 82/42 (55) 100 07/02/19 09:30 69 16 111/47 (68) 99 07/02/19 09:00 119/60 07/02/19 09:00 72 16 119/60 (79) 100 07/02/19 08:54 74 17 35 07/02/19 08:30 74 16 121/71 (88) 100 07/02/19 08:30 121/71 07/02/19 08:00 77 07/02/19 08:00 98.6 74 16 123/98 (106) 100 07/02/19 08:00 Mechanical Ventilator 07/02/19 08:00 123/98 07/02/19 08:00 35 07/02/19 07:45 74 16 123/98 (106) 100 07/02/19 07:30 74 16 128/56 (80) 100 07/02/19 07:30 128/56 07/02/19 07:20 73 16 35 07/02/19 07:15 125/55 07/02/19 07:15 75 18 125/55 (78) 100 07/02/19 07:00 74 17 110/50 (70) 100 07/02/19 06:45 79 18 131/59 (83) 100 07/02/19 06:43 78 18 121/65 (83) 100 07/02/19 06:38 87/43 07/02/19 06:30 71 16 87/43 (58) 99 07/02/19 06:00 78 16 107/54 (71) 100 07/02/19 06:00 107/54 07/02/19 05:30 77 17 119/55 (76) 100 07/02/19 05:15 79 19 35 07/02/19 05:00 80 18 115/58 (77) 100 07/02/19 05:00 115/58 07/02/19 04:34 114/66 07/02/19 04:30 82 16 114/66 (82) 100 07/02/19 04:00 35 07/02/19 04:00 115/65 07/02/19 04:00 Mechanical Ventilator 07/02/19 04:00 97.8 82 19 115/65 (82) 100 07/02/19 03:46 83 07/02/19 03:30 82 16 126/60 (82) 100 07/02/19 03:00 101/54 07/02/19 03:00 79 18 101/54 (70) 99 07/02/19 02:31 81 18 35 07/02/19 02:30 80 19 124/59 (80) 99 07/02/19 02:00 119/60 07/02/19 02:00 83 18 119/60 (79) 99 07/02/19 01:30 87 19 128/80 (96) 99 07/02/19 01:00 85 16 132/54 (80) 100 07/02/19 00:55 87 21 35 07/02/19 00:30 83 19 123/59 (80) 99 07/02/19 00:00 35 07/02/19 00:00 99.3 84 20 125/71 (89) 99 07/02/19 00:00 125/71 07/02/19 00:00 Mechanical Ventilator 07/01/19 23:30 82 19 129/62 (84) 99 07/01/19 23:08 84 07/01/19 23:06 84 18 35 07/01/19 23:00 82 23 127/64 (85) 98 07/01/19 23:00 127/64 07/01/19 22:30 87 19 117/59 (78) 98 07/01/19 22:00 90 15 128/61 (83) 88 07/01/19 22:00 128/61 07/01/19 21:30 82 14 103/48 (66) 100 07/01/19 21:00 81 18 110/44 (66) 100 07/01/19 21:00 110/44 07/01/19 20:56 83 17 35 Intake and Output 07/02/19 07/03/19 19:00 07:00 Intake Total 1731.750 ml 1894.00 ml Output Total 985 ml 845 ml Balance 746.750 ml 1049.00 ml IV Total 941.750 ml 1094.00 ml Tube Feeding 690 ml 600 ml Other 100 ml 200 ml Output Urine Total 985 ml 845 ml Labs Test 07/01/19 05:20 07/01/19 05:45 07/02/19 04:45 07/02/19 07:47 White Blood Count 6.3 K/UL (4.8-10.8) 6.2 K/UL (4.8-10.8) Red Blood Count 2.83 M/UL (4.70-6.10) 2.71 M/UL (4.70-6.10) Hemoglobin 7.9 G/DL (14.2-18.0) 7.5 G/DL (14.2-18.0) Hematocrit 24.3 % (42.0-52.0) 23.5 % (42.0-52.0) Mean Corpuscular Volume 86 FL (80-99) 87 FL (80-99) Mean Corpuscular Hemoglobin 28.0 PG (27.0-31.0) 27.8 PG (27.0-31.0) Mean Corpuscular Hemoglobin Concent 32.6 G/DL (32.0-36.0) 32.1 G/DL (32.0-36.0) Red Cell Distribution Width 16.0 % (11.6-14.8) 15.9 % (11.6-14.8) Platelet Count 343 K/UL (150-450) 302 K/UL (150-450) Mean Platelet Volume 7.6 FL (6.5-10.1) 7.5 FL (6.5-10.1) Neutrophils (%) (Auto) % (45.0-75.0) % (45.0-75.0) Lymphocytes (%) (Auto) % (20.0-45.0) % (20.0-45.0) Monocytes (%) (Auto) % (1.0-10.0) % (1.0-10.0) Eosinophils (%) (Auto) % (0.0-3.0) % (0.0-3.0) Basophils (%) (Auto) % (0.0-2.0) % (0.0-2.0) Sodium Level 142 MMOL/L (136-145) 144 MMOL/L (136-145) Potassium Level 4.2 MMOL/L (3.5-5.1) 4.3 MMOL/L (3.5-5.1) Chloride Level 110 MMOL/L (98-107) 112 MMOL/L (98-107) Carbon Dioxide Level 25 MMOL/L (21-32) 24 MMOL/L (21-32) Anion Gap 7 mmol/L (5-15) 8 mmol/L (5-15) Blood Urea Nitrogen 19 mg/dL (7-18) 18 mg/dL (7-18) Creatinine 1.4 MG/DL (0.55-1.30) 1.3 MG/DL (0.55-1.30) Estimat Glomerular Filtration Rate 50.1 mL/min (>60) 54.6 mL/min (>60) Glucose Level 129 MG/DL (74-106) 104 MG/DL (74-106) Uric Acid 4.5 MG/DL (2.6-7.2) Calcium Level 8.3 MG/DL (8.5-10.1) 8.2 MG/DL (8.5-10.1) Phosphorus Level 2.6 MG/DL (2.5-4.9) 2.7 MG/DL (2.5-4.9) Magnesium Level 1.8 MG/DL (1.8-2.4) 1.8 MG/DL (1.8-2.4) Total Bilirubin 0.2 MG/DL (0.2-1.0) 0.2 MG/DL (0.2-1.0) Aspartate Amino Transf (AST/SGOT) 18 U/L (15-37) 13 U/L (15-37) Alanine Aminotransferase (ALT/SGPT) 30 U/L (12-78) 24 U/L (12-78) Alkaline Phosphatase 180 U/L (46-116) 170 U/L (46-116) C-Reactive Protein, Quantitative 13.9 mg/dL (0.00-0.90) 9.1 mg/dL (0.00-0.90) Pro-B-Type Natriuretic Peptide 8413 pg/mL (0-125) 39601 pg/mL (0-125) Total Protein 5.7 G/DL (6.4-8.2) 5.9 G/DL (6.4-8.2) Albumin 2.0 G/DL (3.4-5.0) 2.2 G/DL (3.4-5.0) Globulin 3.7 g/dL 3.7 g/dL Albumin/Globulin Ratio 0.5 (1.0-2.7) 0.6 (1.0-2.7) Phenytoin (Dilantin) Level 16.2 ug/mL (10-20) Phenobarbital Level 17.5 ug/mL (15-40) Arterial Blood pH 7.447 (7.350-7.450) 7.435 (7.350-7.450) Arterial Blood Partial Pressure CO2 33.1 mmHg (35.0-45.0) 35.6 mmHg (35.0-45.0) Arterial Blood Partial Pressure O2 128.5 mmHg (75.0-100.0) 119.7 mmHg (75.0-100.0) Arterial Blood HCO3 22.3 mmol/L (22.0-26.0) 23.4 mmol/L (22.0-26.0) Arterial Blood Oxygen Saturation 97.9 % (95-100) 98.3 % (95-100) Arterial Blood Base Excess -1.3 (-2-2) -0.7 (-2-2) Ger Test Positive Positive Test 07/02/19 16:49 07/03/19 03:40 Vancomycin Level Trough 38.7 ug/mL (5.0-12.0) White Blood Count 6.8 K/UL (4.8-10.8) Red Blood Count 2.78 M/UL (4.70-6.10) Hemoglobin 7.6 G/DL (14.2-18.0) Hematocrit 24.2 % (42.0-52.0) Mean Corpuscular Volume 87 FL (80-99) Mean Corpuscular Hemoglobin 27.6 PG (27.0-31.0) Mean Corpuscular Hemoglobin Concent 31.6 G/DL (32.0-36.0) Red Cell Distribution Width 16.1 % (11.6-14.8) Platelet Count 330 K/UL (150-450) Mean Platelet Volume 7.6 FL (6.5-10.1) Neutrophils (%) (Auto) % (45.0-75.0) Lymphocytes (%) (Auto) % (20.0-45.0) Monocytes (%) (Auto) % (1.0-10.0) Eosinophils (%) (Auto) % (0.0-3.0) Basophils (%) (Auto) % (0.0-2.0) Differential Total Cells Counted 100 Neutrophils % (Manual) 51 % (45-75) Lymphocytes % (Manual) 31 % (20-45) Monocytes % (Manual) 11 % (1-10) Eosinophils % (Manual) 7 % (0-3) Basophils % (Manual) 0 % (0-2) Band Neutrophils 0 % (0-8) Platelet Estimate Adequate Platelet Morphology Normal Hypochromasia 1+ Anisocytosis 1+ Erythrocyte Sedimentation Rate 70 MM/HR (0-20) Sodium Level 143 MMOL/L (136-145) Potassium Level 4.3 MMOL/L (3.5-5.1) Chloride Level 111 MMOL/L (98-107) Carbon Dioxide Level 25 MMOL/L (21-32) Anion Gap 7 mmol/L (5-15) Blood Urea Nitrogen 21 mg/dL (7-18) Creatinine 1.3 MG/DL (0.55-1.30) Estimat Glomerular Filtration Rate 54.6 mL/min (>60) Glucose Level 131 MG/DL (74-106) Calcium Level 8.2 MG/DL (8.5-10.1) Phosphorus Level 2.4 MG/DL (2.5-4.9) Magnesium Level 1.8 MG/DL (1.8-2.4) Total Bilirubin 0.2 MG/DL (0.2-1.0) Aspartate Amino Transf (AST/SGOT) 13 U/L (15-37) Alanine Aminotransferase (ALT/SGPT) 21 U/L (12-78) Alkaline Phosphatase 180 U/L (46-116) C-Reactive Protein, Quantitative 6.5 mg/dL (0.00-0.90) Total Protein 5.9 G/DL (6.4-8.2) Albumin 2.0 G/DL (3.4-5.0) Globulin 3.9 g/dL Albumin/Globulin Ratio 0.5 (1.0-2.7) Phenytoin (Dilantin) Level 19.2 ug/mL (10-20) Phenobarbital Level 22.6 ug/mL (15-40) Height (Feet): 5 Height (Inches): 8.00 Weight (Pounds): 148 Objective PHYSICAL EXAMINATION: VITAL SIGNS: Have been reviewed HEENT: Trach/vent site ++ CHEST: Bibasilar rales CV: Regular rate and rhythm. GI: Positive bowel sounds. G-tube++ EXTREMITIES: + edema. NEUROLOGICAL: Reflexes equal on both sides. Nikos Nath MD Jul 03, 2019 20:36
--- NOTE | 2019-07-03 22:00 | NUR ---
NURSE NOTES: Repositioned patient. Pressors decreases to 1.333mcg/min, blood pressor has remained within stable limits 151/69, HR 61 NSR. Afebrile. Feeds ongoing, all due med given. Will continue to monitor.
[2019-07-04] VITALS (61 sets, daily range): BP systolic 79–161; BP diastolic 41–91
--- NOTE | 2019-07-04 | NUR ---
NURSE NOTES: Repositioned patient and provided oral care. Patient remains on pressors. HR goes down into the 50s SB. No acute distress at this time. Patient sleeping. technology auditor finished with study and technology auditor record analysis in chart.
[2019-07-04] MEDS: D5NS 1,000 ML IV SCH ×2 (01:00→23:00)
--- NOTE | 2019-07-04 02:14 | NUR ---
NURSE NOTES: Repositioned patient. Patient SB in the 40s. pressors going at .444mcg/min. 128/55, HR 55SB, RR 16, SpO2 100%. Patient remains asleep. Feeds ongoing, minimal residual.
--- NOTE | 2019-07-04 04:00 | NUR ---
NURSE NOTES: Patient repositioned and given oral care. Patient cleaned and replace new linen. Pressors ongoing, feeds ongoing. Patient suctioned. Patients GT still minorly leaking.
[2019-07-04 04:41] LABS: BASOPHILS % (AUTO) 1.5 % (0.0-2.0); HEMATOCRIT 29.9 % (42.0-52.0); HEMOGLOBIN 9.6 G/DL (14.2-18.0); LYMPHOCYTES % (AUTO) 20.6 % (20.0-45.0); MEAN CORPUSCULAR VOLUME 87 FL (80-99); PLATELET COUNT 330 K/UL (150-450); RED BLOOD COUNT 3.44 M/UL (4.70-6.10); RED CELL DISTRIBUTION WIDTH 15.3 % (11.6-14.8); WHITE BLOOD COUNT 9.1 K/UL (4.8-10.8)
[2019-07-04 04:58] LABS: ALANINE AMINOTRANSFERASE 19 U/L (12-78); ALBUMIN 2.2 G/DL (3.4-5.0); ALBUMIN/GLOBULIN RATIO 0.5 (1.0-2.7); ALKALINE PHOSPHATASE 203 U/L (46-116); ANION GAP 8 mmol/L (5-15); ASPARTATE AMINO TRANSFERASE 14 U/L (15-37); BILIRUBIN,TOTAL 0.4 MG/DL (0.2-1.0); BLOOD UREA NITROGEN 22 mg/dL (7-18); CALCIUM 8.1 MG/DL (8.5-10.1); CARBON DIOXIDE 24 MMOL/L (21-32); CHLORIDE 109 MMOL/L (98-107); CREATININE 1.2 MG/DL (0.55-1.30); PHOSPHORUS 2.4 MG/DL (2.5-4.9); POTASSIUM 4.4 MMOL/L (3.5-5.1); SODIUM 141 MMOL/L (136-145)
[2019-07-04] MEDS: PHENobarbital Elixir 30mg/7.5ml NG SCH ×3 (05:37→21:10)
[2019-07-04] MEDS: Midodrine 10mg tab GT SCH ×3 (05:37→21:11)
[2019-07-04] MEDS: Sucralfate 1gm tab GT SCH ×3 (05:38→21:11)
--- NOTE | 2019-07-04 06:19 | NUR ---
NURSE NOTES: Patient was repositioned, patients remains clean and dry. Sinu Jonathan and NSR on the monitor. Patients feeds ongoing. No fever at this time. PICC line dressing clean and dry.
--- NOTE | 2019-07-04 07:10 | NUR ---
RESPIRATORY NOTE: Received pt on AC 16, 600ml, 35%, no PEEP. Pt is trach and vent dependent with a cuffed, Portex trach size 8. Pt is obtunded, responds to stimuli. Bari. rhonchi breath sounds heard upon auscultation, sxn small amounts of thick thin frothy white owens secretions without incidents. Alarms are set and audible, Vent plugged into red outlet, ambu bag and trach spare kit at bedside. Vent circuits and suction tubing are secured and out of the way. Pt in no apparent distress at this time. Will continue to monitor pt.
--- NOTE | 2019-07-04 07:15 | NUR ---
HAND-OFF: Report given to John HARTLEY.
[2019-07-04] MEDS: Cefepime HCl 1 GM in D5W 55 ML IVPB SCH (08:10)
[2019-07-04] MEDS: levETIRAcetam 1,000mg/NS100ml 100 ML IVPB SCH ×2 (08:56→21:09)
--- NOTE | 2019-07-04 09:05 | NUR ---
NURSE NOTES: Dr. Viveros updated of patient status this morning at the bedside, oral care provided with clear white thick frothy sputum through the trach, small clear white secretions suctioned through the mouth, tube feeding remains at 60ml/hr with no residual noted through G-tube, no verbal orders given at this time.
--- NOTE | 2019-07-04 09:07 | General Progress Note ---
Assessment/Plan Problem List: (1) Diabetes ICD Codes: E11.9 - Type 2 diabetes mellitus without complications SNOMED: 39679570 (2) HTN (hypertension) ICD Codes: I10 - Essential (primary) hypertension SNOMED: 73117702 (3) CVA (cerebral vascular accident) ICD Codes: I63.9 - Cerebral infarction, unspecified SNOMED: 470992322 (4) Severe protein-calorie malnutrition ICD Codes: E43 - Unspecified severe protein-calorie malnutrition SNOMED: 247296694 (5) Feeding by G-tube ICD Codes: Z93.1 - Gastrostomy status SNOMED: 735030961, 355660287 (6) Respiratory failure, [id number] ICD Codes: J96.20 - Respiratory failure, [id number] SNOMED: 79254126 (7) Anemia ICD Codes: D64.9 - Anemia, unspecified SNOMED: 601621903 (8) Chronic respiratory failure ICD Codes: J96.10 - Chronic respiratory failure, unspecified whether with hypoxia or hypercapnia SNOMED: 16468842 (9) Septic shock ICD Codes: A41.9 - Sepsis, unspecified organism; R65.21 - Severe sepsis with septic shock SNOMED: 65441345 (10) Alzheimer's dementia ICD Codes: G30.9 - Alzheimer's disease, unspecified SNOMED: 52127850 (11) Severe sepsis ICD Codes: A41.9 - Sepsis, unspecified organism; R65.20 - Severe sepsis without septic shock SNOMED: 82734732 (12) Hypothyroidism ICD Codes: E03.9 - Hypothyroidism, unspecified SNOMED: 61974072 Status: unchanged Assessment/Plan: vent abx wean pressor cbc bmp am tranfuse prn neuro eval ltach eval Subjective Constitutional: Reports: weakness Allergies: Coded Allergies: NO KNOWN DRUG ALLERGIES (Verified Allergy, Unknown, 09/11/16) All Systems: reviewed and negative except above Subjective trach vent altered in icu Objective Last 24 Hour Vital Signs Date Time Temp Pulse Resp B/P (MAP) Pulse Ox O2 Delivery O2 Flow Rate FiO2 07/04/19 08:46 77 17 30 07/04/19 08:00 142/73 07/04/19 08:00 69 16 142/73 (96) 100 07/04/19 08:00 30 07/04/19 08:00 66 07/04/19 07:30 97.1 67 16 146/85 (105) 98 07/04/19 07:10 58 16 30 07/04/19 07:00 89/50 07/04/19 06:45 51 16 83/43 (56) 100 07/04/19 06:30 52 16 91/48 (62) 100 07/04/19 06:15 55 16 117/52 (73) 100 07/04/19 06:00 117/52 07/04/19 06:00 50 16 96/52 (67) 100 07/04/19 05:45 54 16 133/63 (86) 100 07/04/19 05:30 49 16 107/55 (72) 100 07/04/19 05:22 51 16 97/50 (66) 100 07/04/19 05:20 53 16 106/52 (70) 100 07/04/19 05:15 49 16 87/58 (68) 100 07/04/19 05:00 60 16 126/62 (83) 100 07/04/19 05:00 126/62 07/04/19 04:55 56 16 30 07/04/19 04:45 65 16 141/70 (93) 100 07/04/19 04:30 68 19 138/70 (92) 100 07/04/19 04:15 70 20 154/82 (106) 100 07/04/19 04:00 30 07/04/19 04:00 99.4 67 17 155/71 (99) 99 07/04/19 04:00 137/75 07/04/19 04:00 Mechanical Ventilator 07/04/19 04:00 56 07/04/19 03:45 69 21 146/71 (96) 99 07/04/19 03:30 66 15 136/65 (88) 100 07/04/19 03:15 65 16 155/73 (100) 100 07/04/19 03:05 52 16 30 07/04/19 03:00 148/56 07/04/19 03:00 63 17 142/65 (90) 100 07/04/19 02:45 60 16 144/63 (90) 100 07/04/19 02:30 59 15 141/59 (86) 100 07/04/19 02:15 58 16 133/65 (87) 100 07/04/19 02:00 54 15 128/55 (79) 100 07/04/19 02:00 128/55 07/04/19 01:45 50 16 92/45 (61) 99 07/04/19 01:41 49 16 86/41 (56) 100 07/04/19 01:30 54 16 98/49 (65) 100 07/04/19 01:15 51 16 114/63 (80) 100 07/04/19 01:14 51 16 30 07/04/19 01:00 56 17 132/58 (82) 100 07/04/19 01:00 98/49 07/04/19 00:45 60 15 149/71 (97) 100 07/04/19 00:30 52 16 118/58 (78) 100 07/04/19 00:15 59 16 149/68 (95) 100 07/04/19 00:00 Mechanical Ventilator 07/04/19 00:00 149/68 07/04/19 00:00 99.3 59 16 149/66 (93) 100 07/04/19 00:00 58 07/04/19 00:00 30 07/03/19 23:45 58 16 148/68 (94) 100 07/03/19 23:30 60 16 150/75 (100) 100 07/03/19 23:15 53 16 133/70 (91) 100 07/03/19 23:03 68 16 30 07/03/19 23:00 53 16 123/56 (78) 99 07/03/19 23:00 123/56 07/03/19 22:45 59 18 151/63 (92) 100 07/03/19 22:30 50 16 138/76 (96) 99 07/03/19 22:15 60 18 151/69 (96) 100 07/03/19 22:00 155/78 07/03/19 22:00 66 17 155/74 (101) 100 07/03/19 21:45 68 17 162/76 (104) 100 07/03/19 21:30 71 19 152/65 (94) 100 07/03/19 21:15 71 20 153/69 (97) 100 07/03/19 21:08 72 18 30 07/03/19 21:03 153/69 07/03/19 21:00 71 17 141/65 (90) 100 07/03/19 20:45 98.9 71 19 131/59 (83) 100 07/03/19 20:30 73 18 134/69 (90) 100 07/03/19 20:15 73 17 131/72 (91) 100 07/03/19 20:00 35 07/03/19 20:00 Mechanical Ventilator 07/03/19 20:00 75 07/03/19 20:00 75 17 134/82 (99) 100 07/03/19 19:45 68 17 111/60 (77) 100 07/03/19 19:30 133/60 07/03/19 19:30 71 18 118/53 (74) 100 07/03/19 19:15 72 20 118/57 (77) 100 07/03/19 19:00 133/60 07/03/19 19:00 71 17 133/60 (84) 100 07/03/19 18:56 72 16 30 07/03/19 18:30 70 18 125/53 (77) 100 07/03/19 18:00 72 17 123/60 (81) 100 07/03/19 18:00 123/60 07/03/19 17:30 71 19 127/57 (80) 100 07/03/19 17:01 67 16 35 07/03/19 17:00 124/64 07/03/19 17:00 99.6 68 17 124/62 (82) 100 07/03/19 16:40 99.8 65 16 101/49 (66) 99 07/03/19 16:30 66 16 103/54 (70) 99 07/03/19 16:00 73 07/03/19 16:00 Mechanical Ventilator 07/03/19 16:00 99.8 71 19 109/56 (73) 100 07/03/19 16:00 102/50 07/03/19 16:00 35 07/03/19 15:30 74 18 122/58 (79) 99 07/03/19 15:00 73 19 124/65 (84) 100 07/03/19 15:00 124/65 07/03/19 14:35 74 17 35 07/03/19 14:30 70 18 107/48 (67) 100 07/03/19 14:00 115/54 07/03/19 14:00 73 19 115/54 (74) 99 07/03/19 13:30 74 18 127/49 (75) 99 07/03/19 13:27 73 18 35 07/03/19 13:00 130/57 07/03/19 13:00 73 19 130/57 (81) 100 07/03/19 12:30 73 17 120/56 (77) 100 07/03/19 12:00 99.6 70 16 112/50 (70) 99 07/03/19 12:00 112/50 07/03/19 12:00 69 07/03/19 12:00 Mechanical Ventilator 07/03/19 12:00 35 07/03/19 11:30 70 19 120/53 (75) 100 07/03/19 11:00 122/55 07/03/19 11:00 71 16 128/59 (82) 100 07/03/19 10:51 67 17 35 07/03/19 10:30 68 16 123/53 (76) 100 07/03/19 10:00 134/61 07/03/19 10:00 72 16 134/61 (85) 99 07/03/19 09:30 72 17 128/57 (80) 100 Intake and Output 07/03/19 07/04/19 18:59 06:59 Intake Total 1461.00 ml 1487.97 ml Output Total 1260 ml 830 ml Balance 201.00 ml 657.97 ml Intake Free Water 70 ml IV Total 921.00 ml 757.97 ml Tube Feeding 450 ml 660 ml Other 90 ml Output Urine Total 1260 ml 830 ml # Bowel Movements 1 Laboratory Tests 07/04/19 04:00: White Blood Count 9.1, Red Blood Count 3.44L, Hemoglobin 9.6L, Hematocrit 29.9L , Mean Corpuscular Volume 87, Mean Corpuscular Hemoglobin 28.0, Mean Corpuscular Hemoglobin Concent 32.2, Red Cell Distribution Width 15.3H, Platelet Count 330, Mean Platelet Volume 7.5, Neutrophils (%) (Auto) 59.0, Lymphocytes (%) (Auto) 20.6, Monocytes (%) (Auto) 12.0H, Eosinophils (%) (Auto) 7.0H, Basophils (%) (Auto) 1.5, Sodium Level 141, Potassium Level 4.4, Chloride Level 109H, Carbon Dioxide Level 24, Anion Gap 8, Blood Urea Nitrogen 22H, Creatinine 1.2, Estimat Glomerular Filtration Rate 59.9, Glucose Level 135H, Calcium Level 8.1L, Phosphorus Level 2.4L, Magnesium Level 1.7L, Total Bilirubin 0.4, Aspartate Amino Transf (AST/SGOT) 14L, Alanine Aminotransferase ( ALT/SGPT) 19, Alkaline Phosphatase 203H, Total Protein 6.4, Albumin 2.2L, Globulin 4.2, Albumin/Globulin Ratio 0.5L Height (Feet): 5 Height (Inches): 8.00 Weight (Pounds): 149 General Appearance: lethargic EENT: normal ENT inspection Neck: normal alignment Cardiovascular: normal peripheral pulses, normal rate, regular rhythm Respiratory/Chest: chest wall non-tender, lungs clear, normal breath sounds Abdomen: normal bowel sounds, non tender, soft Extremities: normal inspection Edema: no edema noted Arm (L), no edema noted Arm (R), no edema noted Leg (L), no edema noted Leg (R), no edema noted Pedal (L), no edema noted Pedal (R), no edema noted Generalized Neurologic: motor weakness Skin: normal pigmentation, warm/dry Gato Viverosg Jul 04, 2019 09:07
[2019-07-04] MEDS: Phenytoin 200 MG in NS 55 ML IVPB SCH ×2 (09:27→21:10)
--- NOTE | 2019-07-04 10:24 | NUR ---
RD ASSESSMENT & RECOMMENDATIONS SEE CARE ACTIVITY FOR COMPLETE ASSESSMENT DAILY ESTIMATED NEEDS: Needs based on Critical care, underweight TF DIE FILER 56.8 30-35 kcals/kg 0823-4760 total kcals 1.2-2 g protein/kg 68-114 g total protein 25-30 mL/kg 1931-4601 total fluid mLs NUTRITION DIAGNOSIS: * Increased kcal/prot intake needs R/T sepsis and underweight status as evidenced by pt adm w/ critically elev WBC (35.7*-> now wnl), now afebrile, @ 68% [place] Body Weight. * Swallowing difficulty R/T respiratory status as evidenced by pt vent dep via trach, PEG dep. CURRENT TF:Osmolite 1.5@60 x20 ENTERAL NUTRITION RECOMMENDATIONS: Osmolite 1.5 @ 55ml/hr x 22 hrs + Prosource x1 daily to provide 1210ml, 1815kcal, 76g + 11g prot, 922ml free water - Decreasse rate and increase run time tp 22ml/hr as pt is off GT dilantin (TF to be held for GT synthroid only, 2 hrs) - Rate as above - Add prosource x1 daily to better meet est pro needs. - Flush per MD/ HOB >30 degrees. Feed at goal w. hemodynamic stability, otherwise trophic feeds of 5-10ml/hr to maintain gut integrity. ------- ADDITIONAL RECOMMENDATIONS: * Calibrated bedscale weight for accurate CBW + weekly wt monitoring * Per SNF: Ht of 6'1", Wt 125# (05/2019) * Monitor lytes closely, replete as needed (K elev upon adm, monitor closely, need for TF change-> now wnl) * Monitor BGs closely w/ TF * Add JOYCELYN BID w/ TF order for wound care .
--- NOTE | 2019-07-04 10:25 | NUR ---
NURSE NOTES: Dr. Salvador informed of labs and acknowledge the magnesium order for 2g and potassium phosphate 20mm order placed, patient urine output remains approximately 50-60ml/hr with color of straw clear urine, Tube feeding remains at 60ml/hr with no residual noted,
--- NOTE | 2019-07-04 10:44 | Pulmonolgy Critical Care Note ---
Critical Care - Asmt/Plan Problems: (1) Septic shock (2) Pyelonephritis (3) Chronic respiratory failure (4) Alzheimer's dementia (5) Severe erosive esophagitis (6) Feeding by G-tube (7) Diabetes (8) CVA (cerebral vascular accident) Respiratory: monitor respiratory rate, adjust FIO2, CXR Cardiac: continue pressors, continue to monitor HR/BP Renal: F/U I&O, keep IV fluid, check electrolytes Infectious Disease: check cultures, continue antibiotics Gastrointestinal: continue feedings/current rate Endocrine: check TSH, check HgA1C Hematologic: monitor H/H, transfuse if hgb<8.5 Neurologic: PRN Morphine, keep patient comfortable Prophylaxis: Protonix Discussed with: nurses, consultants, porter sample caseconvention manager - Objective Last 24 Hour Vital Signs Date Time Temp Pulse Resp B/P (MAP) Pulse Ox O2 Delivery O2 Flow Rate FiO2 07/04/19 10:35 71 17 99 Mechanical Ventilator 30 07/04/19 10:34 71 17 30 07/04/19 10:00 70 16 93/48 (63) 100 07/04/19 09:30 71 16 151/76 (101) 100 07/04/19 09:00 77 17 152/76 (101) 100 07/04/19 08:46 77 17 30 07/04/19 08:30 77 17 161/86 (111) 99 07/04/19 08:00 142/73 07/04/19 08:00 69 16 142/73 (96) 100 07/04/19 08:00 30 07/04/19 08:00 66 07/04/19 07:30 97.1 67 16 146/85 (105) 98 07/04/19 07:10 58 16 30 07/04/19 07:00 89/50 07/04/19 06:45 51 16 83/43 (56) 100 07/04/19 06:30 52 16 91/48 (62) 100 07/04/19 06:15 55 16 117/52 (73) 100 07/04/19 06:00 117/52 07/04/19 06:00 50 16 96/52 (67) 100 07/04/19 05:45 54 16 133/63 (86) 100 07/04/19 05:30 49 16 107/55 (72) 100 07/04/19 05:22 51 16 97/50 (66) 100 07/04/19 05:20 53 16 106/52 (70) 100 07/04/19 05:15 49 16 87/58 (68) 100 07/04/19 05:00 60 16 126/62 (83) 100 07/04/19 05:00 126/62 07/04/19 04:55 56 16 30 07/04/19 04:45 65 16 141/70 (93) 100 07/04/19 04:30 68 19 138/70 (92) 100 07/04/19 04:15 70 20 154/82 (106) 100 07/04/19 04:00 30 07/04/19 04:00 99.4 67 17 155/71 (99) 99 07/04/19 04:00 137/75 07/04/19 04:00 Mechanical Ventilator 07/04/19 04:00 56 07/04/19 03:45 69 21 146/71 (96) 99 07/04/19 03:30 66 15 136/65 (88) 100 07/04/19 03:15 65 16 155/73 (100) 100 07/04/19 03:05 52 16 30 07/04/19 03:00 148/56 07/04/19 03:00 63 17 142/65 (90) 100 07/04/19 02:45 60 16 144/63 (90) 100 07/04/19 02:30 59 15 141/59 (86) 100 07/04/19 02:15 58 16 133/65 (87) 100 07/04/19 02:00 54 15 128/55 (79) 100 07/04/19 02:00 128/55 07/04/19 01:45 50 16 92/45 (61) 99 07/04/19 01:41 49 16 86/41 (56) 100 07/04/19 01:30 54 16 98/49 (65) 100 07/04/19 01:15 51 16 114/63 (80) 100 07/04/19 01:14 51 16 30 07/04/19 01:00 56 17 132/58 (82) 100 07/04/19 01:00 98/49 07/04/19 00:45 60 15 149/71 (97) 100 07/04/19 00:30 52 16 118/58 (78) 100 07/04/19 00:15 59 16 149/68 (95) 100 07/04/19 00:00 Mechanical Ventilator 07/04/19 00:00 149/68 07/04/19 00:00 99.3 59 16 149/66 (93) 100 07/04/19 00:00 58 07/04/19 00:00 30 07/03/19 23:45 58 16 148/68 (94) 100 07/03/19 23:30 60 16 150/75 (100) 100 07/03/19 23:15 53 16 133/70 (91) 100 07/03/19 23:03 68 16 30 07/03/19 23:00 53 16 123/56 (78) 99 07/03/19 23:00 123/56 07/03/19 22:45 59 18 151/63 (92) 100 07/03/19 22:30 50 16 138/76 (96) 99 07/03/19 22:15 60 18 151/69 (96) 100 07/03/19 22:00 155/78 07/03/19 22:00 66 17 155/74 (101) 100 07/03/19 21:45 68 17 162/76 (104) 100 07/03/19 21:30 71 19 152/65 (94) 100 07/03/19 21:15 71 20 153/69 (97) 100 07/03/19 21:08 72 18 30 07/03/19 21:03 153/69 07/03/19 21:00 71 17 141/65 (90) 100 07/03/19 20:45 98.9 71 19 131/59 (83) 100 07/03/19 20:30 73 18 134/69 (90) 100 07/03/19 20:15 73 17 131/72 (91) 100 07/03/19 20:00 35 07/03/19 20:00 Mechanical Ventilator 07/03/19 20:00 75 07/03/19 20:00 75 17 134/82 (99) 100 07/03/19 19:45 68 17 111/60 (77) 100 07/03/19 19:30 133/60 07/03/19 19:30 71 18 118/53 (74) 100 07/03/19 19:15 72 20 118/57 (77) 100 07/03/19 19:00 133/60 07/03/19 19:00 71 17 133/60 (84) 100 07/03/19 18:56 72 16 30 07/03/19 18:30 70 18 125/53 (77) 100 07/03/19 18:00 72 17 123/60 (81) 100 07/03/19 18:00 123/60 07/03/19 17:30 71 19 127/57 (80) 100 07/03/19 17:01 67 16 35 07/03/19 17:00 124/64 07/03/19 17:00 99.6 68 17 124/62 (82) 100 07/03/19 16:40 99.8 65 16 101/49 (66) 99 07/03/19 16:30 66 16 103/54 (70) 99 07/03/19 16:00 73 07/03/19 16:00 Mechanical Ventilator 07/03/19 16:00 99.8 71 19 109/56 (73) 100 07/03/19 16:00 102/50 07/03/19 16:00 35 07/03/19 15:30 74 18 122/58 (79) 99 07/03/19 15:00 73 19 124/65 (84) 100 07/03/19 15:00 124/65 07/03/19 14:35 74 17 35 07/03/19 14:30 70 18 107/48 (67) 100 07/03/19 14:00 115/54 07/03/19 14:00 73 19 115/54 (74) 99 07/03/19 13:30 74 18 127/49 (75) 99 07/03/19 13:27 73 18 35 07/03/19 13:00 130/57 07/03/19 13:00 73 19 130/57 (81) 100 07/03/19 12:30 73 17 120/56 (77) 100 07/03/19 12:00 99.6 70 16 112/50 (70) 99 07/03/19 12:00 112/50 07/03/19 12:00 69 07/03/19 12:00 Mechanical Ventilator 07/03/19 12:00 35 07/03/19 11:30 70 19 120/53 (75) 100 07/03/19 11:00 122/55 07/03/19 11:00 71 16 128/59 (82) 100 07/03/19 10:51 67 17 35 Status: awake Condition: critical HEENT: atraumatic Neck: full ROM Lungs: chest wall tender Heart: HR/BP stable Abdomen: non-tender, active bowel sounds Extremities: no C/C/E Decubiti: location Critical Care - Subjective ROS Limited/Unobtainable: No Condition: critical FI02: 30 Vent Support Breath Rate: 16 Vent Support Mode: AC Vent Tidal Volume: 600 Sputum Amount: Moderate PEEP: 0.0 PIP: 37 Tube Feeding Amount: 60 I&O: Intake and Output 07/03/19 07/04/19 19:00 07:00 Intake Total 1517.00 ml 1481.96 ml Output Total 1190 ml 830 ml Balance 327.00 ml 651.96 ml Intake Free Water 70 ml IV Total 917.00 ml 751.96 ml Tube Feeding 510 ml 660 ml Other 90 ml Output Urine Total 1190 ml 830 ml # Bowel Movements 1 Labs: Laboratory Tests Test 07/04/19 04:00 White Blood Count 9.1 K/UL (4.8-10.8) Red Blood Count 3.44 M/UL (4.70-6.10) L Hemoglobin 9.6 G/DL (14.2-18.0) L Hematocrit 29.9 % (42.0-52.0) L Mean Corpuscular Volume 87 FL (80-99) Mean Corpuscular Hemoglobin 28.0 PG (27.0-31.0) Mean Corpuscular Hemoglobin Concent 32.2 G/DL (32.0-36.0) Red Cell Distribution Width 15.3 % (11.6-14.8) H Platelet Count 330 K/UL (150-450) Mean Platelet Volume 7.5 FL (6.5-10.1) Neutrophils (%) (Auto) 59.0 % (45.0-75.0) Lymphocytes (%) (Auto) 20.6 % (20.0-45.0) Monocytes (%) (Auto) 12.0 % (1.0-10.0) H Eosinophils (%) (Auto) 7.0 % (0.0-3.0) H Basophils (%) (Auto) 1.5 % (0.0-2.0) Sodium Level 141 MMOL/L (136-145) Potassium Level 4.4 MMOL/L (3.5-5.1) Chloride Level 109 MMOL/L (98-107) H Carbon Dioxide Level 24 MMOL/L (21-32) Anion Gap 8 mmol/L (5-15) Blood Urea Nitrogen 22 mg/dL (7-18) H Creatinine 1.2 MG/DL (0.55-1.30) Estimat Glomerular Filtration Rate 59.9 mL/min (>60) Glucose Level 135 MG/DL (74-106) H Calcium Level 8.1 MG/DL (8.5-10.1) L Phosphorus Level 2.4 MG/DL (2.5-4.9) L Magnesium Level 1.7 MG/DL (1.8-2.4) L Total Bilirubin 0.4 MG/DL (0.2-1.0) Aspartate Amino Transf (AST/SGOT) 14 U/L (15-37) L Alanine Aminotransferase (ALT/SGPT) 19 U/L (12-78) Alkaline Phosphatase 203 U/L (46-116) H Total Protein 6.4 G/DL (6.4-8.2) Albumin 2.2 G/DL (3.4-5.0) L Globulin 4.2 g/dL Albumin/Globulin Ratio 0.5 (1.0-2.7) L Huma Keating MD Jul 04, 2019 10:44
--- NOTE | 2019-07-04 10:59 | NUR ---
NURSE NOTES: Dr. Keating updated of the patient progress at the bedside and held Levophed since 0900 with BP of 152/76. no vebral orders given at this time.
--- NOTE | 2019-07-04 11:10 | NUR ---
NURSE NOTES: Dr. Wilson updated on the nutritional recommendation placed this morning, ordered to change rate to 55ml per 22hrs and hold for Synthroid one hour before and after, also add Prosource one pack a day and Lenny 2 packs Daily.
--- NOTE | 2019-07-04 11:14 | General Progress Note ---
Assessment/Plan Problem List: (1) skilled nursing resident ICD Codes: Z59.3 - Problems related to living in residential institution SNOMED: 821804616 (2) GT SITE LEAKING (3) Alzheimer's dementia ICD Codes: G30.9 - Alzheimer's disease, unspecified SNOMED: 26097764 (4) Upper GI bleed ICD Codes: K92.2 - Upper gastrointestinal hemorrhage SNOMED: 96891581 (5) Severe erosive esophagitis (6) Malfunction of gastrostomy tube ICD Codes: K94.23 - Gastrostomy malfunction SNOMED: 113415343 (7) Chronic respiratory failure ICD Codes: J96.10 - Chronic respiratory failure, unspecified whether with hypoxia or hypercapnia SNOMED: 65850944 (8) Anemia ICD Codes: D64.9 - Anemia, unspecified SNOMED: 382819452 Status: unchanged Assessment/Plan: stable H&H s/p one unit PRBC yesterday dietitian in put appreciated no obvious GIB per nurses ppi GTF abx per ID ICU care Subjective ROS Limited/Unobtainable: No Allergies: Coded Allergies: NO KNOWN DRUG ALLERGIES (Verified Allergy, Unknown, 09/11/16) Subjective only on low rate pressor GTF running Objective Last 24 Hour Vital Signs Date Time Temp Pulse Resp B/P (MAP) Pulse Ox O2 Delivery O2 Flow Rate FiO2 07/04/19 10:35 71 17 99 Mechanical Ventilator 30 07/04/19 10:34 71 17 30 07/04/19 10:30 66 16 127/65 (85) 100 07/04/19 10:00 70 16 93/48 (63) 100 07/04/19 09:30 71 16 151/76 (101) 100 07/04/19 09:00 152/76 07/04/19 09:00 77 17 152/76 (101) 100 07/04/19 08:46 77 17 30 07/04/19 08:30 77 17 161/86 (111) 99 07/04/19 08:00 142/73 07/04/19 08:00 69 16 142/73 (96) 100 07/04/19 08:00 Mechanical Ventilator 07/04/19 08:00 30 07/04/19 08:00 66 07/04/19 07:30 97.1 67 16 146/85 (105) 98 07/04/19 07:10 58 16 30 07/04/19 07:00 89/50 07/04/19 06:45 51 16 83/43 (56) 100 07/04/19 06:30 52 16 91/48 (62) 100 07/04/19 06:15 55 16 117/52 (73) 100 07/04/19 06:00 117/52 07/04/19 06:00 50 16 96/52 (67) 100 07/04/19 05:45 54 16 133/63 (86) 100 07/04/19 05:30 49 16 107/55 (72) 100 07/04/19 05:22 51 16 97/50 (66) 100 07/04/19 05:20 53 16 106/52 (70) 100 07/04/19 05:15 49 16 87/58 (68) 100 07/04/19 05:00 60 16 126/62 (83) 100 07/04/19 05:00 126/62 07/04/19 04:55 56 16 30 07/04/19 04:45 65 16 141/70 (93) 100 07/04/19 04:30 68 19 138/70 (92) 100 07/04/19 04:15 70 20 154/82 (106) 100 07/04/19 04:00 30 07/04/19 04:00 99.4 67 17 155/71 (99) 99 07/04/19 04:00 137/75 07/04/19 04:00 Mechanical Ventilator 07/04/19 04:00 56 07/04/19 03:45 69 21 146/71 (96) 99 07/04/19 03:30 66 15 136/65 (88) 100 07/04/19 03:15 65 16 155/73 (100) 100 07/04/19 03:05 52 16 30 07/04/19 03:00 148/56 07/04/19 03:00 63 17 142/65 (90) 100 07/04/19 02:45 60 16 144/63 (90) 100 07/04/19 02:30 59 15 141/59 (86) 100 07/04/19 02:15 58 16 133/65 (87) 100 07/04/19 02:00 54 15 128/55 (79) 100 07/04/19 02:00 128/55 07/04/19 01:45 50 16 92/45 (61) 99 07/04/19 01:41 49 16 86/41 (56) 100 07/04/19 01:30 54 16 98/49 (65) 100 07/04/19 01:15 51 16 114/63 (80) 100 07/04/19 01:14 51 16 30 07/04/19 01:00 56 17 132/58 (82) 100 07/04/19 01:00 98/49 07/04/19 00:45 60 15 149/71 (97) 100 07/04/19 00:30 52 16 118/58 (78) 100 07/04/19 00:15 59 16 149/68 (95) 100 07/04/19 00:00 Mechanical Ventilator 07/04/19 00:00 149/68 07/04/19 00:00 99.3 59 16 149/66 (93) 100 07/04/19 00:00 58 07/04/19 00:00 30 07/03/19 23:45 58 16 148/68 (94) 100 07/03/19 23:30 60 16 150/75 (100) 100 07/03/19 23:15 53 16 133/70 (91) 100 07/03/19 23:03 68 16 30 07/03/19 23:00 53 16 123/56 (78) 99 07/03/19 23:00 123/56 07/03/19 22:45 59 18 151/63 (92) 100 07/03/19 22:30 50 16 138/76 (96) 99 07/03/19 22:15 60 18 151/69 (96) 100 07/03/19 22:00 155/78 07/03/19 22:00 66 17 155/74 (101) 100 07/03/19 21:45 68 17 162/76 (104) 100 07/03/19 21:30 71 19 152/65 (94) 100 07/03/19 21:15 71 20 153/69 (97) 100 07/03/19 21:08 72 18 30 07/03/19 21:03 153/69 07/03/19 21:00 71 17 141/65 (90) 100 07/03/19 20:45 98.9 71 19 131/59 (83) 100 07/03/19 20:30 73 18 134/69 (90) 100 07/03/19 20:15 73 17 131/72 (91) 100 07/03/19 20:00 35 07/03/19 20:00 Mechanical Ventilator 07/03/19 20:00 75 07/03/19 20:00 75 17 134/82 (99) 100 07/03/19 19:45 68 17 111/60 (77) 100 07/03/19 19:30 133/60 07/03/19 19:30 71 18 118/53 (74) 100 07/03/19 19:15 72 20 118/57 (77) 100 07/03/19 19:00 133/60 07/03/19 19:00 71 17 133/60 (84) 100 07/03/19 18:56 72 16 30 07/03/19 18:30 70 18 125/53 (77) 100 07/03/19 18:00 72 17 123/60 (81) 100 07/03/19 18:00 123/60 07/03/19 17:30 71 19 127/57 (80) 100 07/03/19 17:01 67 16 35 07/03/19 17:00 124/64 07/03/19 17:00 99.6 68 17 124/62 (82) 100 07/03/19 16:40 99.8 65 16 101/49 (66) 99 07/03/19 16:30 66 16 103/54 (70) 99 07/03/19 16:00 73 07/03/19 16:00 Mechanical Ventilator 07/03/19 16:00 99.8 71 19 109/56 (73) 100 07/03/19 16:00 102/50 07/03/19 16:00 35 07/03/19 15:30 74 18 122/58 (79) 99 07/03/19 15:00 73 19 124/65 (84) 100 07/03/19 15:00 124/65 07/03/19 14:35 74 17 35 07/03/19 14:30 70 18 107/48 (67) 100 07/03/19 14:00 115/54 07/03/19 14:00 73 19 115/54 (74) 99 07/03/19 13:30 74 18 127/49 (75) 99 07/03/19 13:27 73 18 35 10/24/19 13:00 130/57 07/03/19 13:00 73 19 130/57 (81) 100 07/03/19 12:30 73 17 120/56 (77) 100 07/03/19 12:00 99.6 70 16 112/50 (70) 99 07/03/19 12:00 112/50 07/03/19 12:00 69 07/03/19 12:00 Mechanical Ventilator 07/03/19 12:00 35 07/03/19 11:30 70 19 120/53 (75) 100 Intake and Output 07/03/19 07/04/19 19:00 07:00 Intake Total 1517.00 ml 1481.96 ml Output Total 1190 ml 830 ml Balance 327.00 ml 651.96 ml Intake Free Water 70 ml IV Total 917.00 ml 751.96 ml Tube Feeding 510 ml 660 ml Other 90 ml Output Urine Total 1190 ml 830 ml # Bowel Movements 1 Laboratory Tests 07/04/19 04:00: White Blood Count 9.1, Red Blood Count 3.44L, Hemoglobin 9.6L, Hematocrit 29.9L , Mean Corpuscular Volume 87, Mean Corpuscular Hemoglobin 28.0, Mean Corpuscular Hemoglobin Concent 32.2, Red Cell Distribution Width 15.3H, Platelet Count 330, Mean Platelet Volume 7.5, Neutrophils (%) (Auto) 59.0, Lymphocytes (%) (Auto) 20.6, Monocytes (%) (Auto) 12.0H, Eosinophils (%) (Auto) 7.0H, Basophils (%) (Auto) 1.5, Sodium Level 141, Potassium Level 4.4, Chloride Level 109H, Carbon Dioxide Level 24, Anion Gap 8, Blood Urea Nitrogen 22H, Creatinine 1.2, Estimat Glomerular Filtration Rate 59.9, Glucose Level 135H, Calcium Level 8.1L, Phosphorus Level 2.4L, Magnesium Level 1.7L, Total Bilirubin 0.4, Aspartate Amino Transf (AST/SGOT) 14L, Alanine Aminotransferase ( ALT/SGPT) 19, Alkaline Phosphatase 203H, Total Protein 6.4, Albumin 2.2L, Globulin 4.2, Albumin/Globulin Ratio 0.5L Height (Feet): 5 Height (Inches): 8.00 Weight (Pounds): 149 General Appearance: no apparent distress EENT: normal ENT inspection Neck: supple Cardiovascular: normal rate Respiratory/Chest: decreased breath sounds Abdomen: normal bowel sounds, non tender, soft Extremities: non-tender Vitaliy Wilson MD Jul 04, 2019 11:14
--- NOTE | 2019-07-04 11:20 | NUR ---
NURSE NOTES: Tube feeding started at 55ml/hr, patient repositioned and oral care provided, suctioned through trach clear thick white frothy sputum, and clear sputum orally,
--- NOTE | 2019-07-04 11:34 | Nephrology Progress Note ---
Assessment/Plan Problem List: (1) Septic shock (2) Hypothyroidism (3) Upper GI bleed (4) Respiratory failure, hrqot-oz-amvooah (5) Anemia Assessment Sepsis Shock on pressors GI Bleed Low Na and high K UTI HypoThyroidism Tracheostomy dependence Respiratory failure, gvazv-hd-hlslycl Alzheimer's Feeding by G-tube Plan monitor dilantin and phenobarb level- med mgt for sz per neuro Albumin bolus prn as Cr rising consider transfusion as needed On Midodrine On GT feeding fluid challenge as needed adjust IV fluids transfuse as needed Monitor lytes and renal parametrs urine studies per orders Subjective ROS Limited/Unobtainable: Yes Objective Objective Last 24 Hour Vital Signs Date Time Temp Pulse Resp B/P (MAP) Pulse Ox O2 Delivery O2 Flow Rate FiO2 07/04/19 11:15 79/41 07/04/19 11:15 59 16 79/41 (54) 98 07/04/19 11:00 60 16 83/46 (58) 98 07/04/19 10:35 71 17 99 Mechanical Ventilator 30 07/04/19 10:34 71 17 30 07/04/19 10:30 66 16 127/65 (85) 100 07/04/19 10:00 70 16 93/48 (63) 100 07/04/19 09:30 71 16 151/76 (101) 100 07/04/19 09:00 152/76 07/04/19 09:00 77 17 152/76 (101) 100 07/04/19 08:46 77 17 30 07/04/19 08:30 77 17 161/86 (111) 99 07/04/19 08:00 142/73 07/04/19 08:00 69 16 142/73 (96) 100 07/04/19 08:00 Mechanical Ventilator 07/04/19 08:00 30 07/04/19 08:00 66 07/04/19 07:30 97.1 67 16 146/85 (105) 98 07/04/19 07:10 58 16 30 07/04/19 07:00 89/50 07/04/19 06:45 51 16 83/43 (56) 100 07/04/19 06:30 52 16 91/48 (62) 100 07/04/19 06:15 55 16 117/52 (73) 100 07/04/19 06:00 117/52 07/04/19 06:00 50 16 96/52 (67) 100 07/04/19 05:45 54 16 133/63 (86) 100 07/04/19 05:30 49 16 107/55 (72) 100 07/04/19 05:22 51 16 97/50 (66) 100 07/04/19 05:20 53 16 106/52 (70) 100 07/04/19 05:15 49 16 87/58 (68) 100 07/04/19 05:00 60 16 126/62 (83) 100 07/04/19 05:00 126/62 07/04/19 04:55 56 16 30 07/04/19 04:45 65 16 141/70 (93) 100 07/04/19 04:30 68 19 138/70 (92) 100 07/04/19 04:15 70 20 154/82 (106) 100 07/04/19 04:00 30 07/04/19 04:00 99.4 67 17 155/71 (99) 99 07/04/19 04:00 137/75 07/04/19 04:00 Mechanical Ventilator 07/04/19 04:00 56 07/04/19 03:45 69 21 146/71 (96) 99 07/04/19 03:30 66 15 136/65 (88) 100 07/04/19 03:15 65 16 155/73 (100) 100 07/04/19 03:05 52 16 30 07/04/19 03:00 148/56 07/04/19 03:00 63 17 142/65 (90) 100 07/04/19 02:45 60 16 144/63 (90) 100 07/04/19 02:30 59 15 141/59 (86) 100 07/04/19 02:15 58 16 133/65 (87) 100 07/04/19 02:00 54 15 128/55 (79) 100 07/04/19 02:00 128/55 07/04/19 01:45 50 16 92/45 (61) 99 07/04/19 01:41 49 16 86/41 (56) 100 07/04/19 01:30 54 16 98/49 (65) 100 07/04/19 01:15 51 16 114/63 (80) 100 07/04/19 01:14 51 16 30 07/04/19 01:00 56 17 132/58 (82) 100 07/04/19 01:00 98/49 07/04/19 00:45 60 15 149/71 (97) 100 07/04/19 00:30 52 16 118/58 (78) 100 07/04/19 00:15 59 16 149/68 (95) 100 07/04/19 00:00 Mechanical Ventilator 07/04/19 00:00 149/68 07/04/19 00:00 99.3 59 16 149/66 (93) 100 07/04/19 00:00 58 07/04/19 00:00 30 07/03/19 23:45 58 16 148/68 (94) 100 07/03/19 23:30 60 16 150/75 (100) 100 07/03/19 23:15 53 16 133/70 (91) 100 07/03/19 23:03 68 16 30 07/03/19 23:00 53 16 123/56 (78) 99 07/03/19 23:00 123/56 07/03/19 22:45 59 18 151/63 (92) 100 07/03/19 22:30 50 16 138/76 (96) 99 07/03/19 22:15 60 18 151/69 (96) 100 07/03/19 22:00 155/78 07/03/19 22:00 66 17 155/74 (101) 100 07/03/19 21:45 68 17 162/76 (104) 100 07/03/19 21:30 71 19 152/65 (94) 100 07/03/19 21:15 71 20 153/69 (97) 100 07/03/19 21:08 72 18 30 07/03/19 21:03 153/69 07/03/19 21:00 71 17 141/65 (90) 100 07/03/19 20:45 98.9 71 19 131/59 (83) 100 07/03/19 20:30 73 18 134/69 (90) 100 07/03/19 20:15 73 17 131/72 (91) 100 07/03/19 20:00 35 07/03/19 20:00 Mechanical Ventilator 07/03/19 20:00 75 07/03/19 20:00 75 17 134/82 (99) 100 07/03/19 19:45 68 17 111/60 (77) 100 07/03/19 19:30 133/60 07/03/19 19:30 71 18 118/53 (74) 100 07/03/19 19:15 72 20 118/57 (77) 100 07/03/19 19:00 133/60 07/03/19 19:00 71 17 133/60 (84) 100 07/03/19 18:56 72 16 30 07/03/19 18:30 70 18 125/53 (77) 100 07/03/19 18:00 72 17 123/60 (81) 100 07/03/19 18:00 123/60 07/03/19 17:30 71 19 127/57 (80) 100 07/03/19 17:01 67 16 35 07/03/19 17:00 124/64 07/03/19 17:00 99.6 68 17 124/62 (82) 100 07/03/19 16:40 99.8 65 16 101/49 (66) 99 07/03/19 16:30 66 16 103/54 (70) 99 07/03/19 16:00 73 07/03/19 16:00 Mechanical Ventilator 07/03/19 16:00 99.8 71 19 109/56 (73) 100 07/03/19 16:00 102/50 07/03/19 16:00 35 07/03/19 15:30 74 18 122/58 (79) 99 07/03/19 15:00 73 19 124/65 (84) 100 07/03/19 15:00 124/65 07/03/19 14:35 74 17 35 07/03/19 14:30 70 18 107/48 (67) 100 07/03/19 14:00 115/54 07/03/19 14:00 73 19 115/54 (74) 99 07/03/19 13:30 74 18 127/49 (75) 99 07/03/19 13:27 73 18 35 07/03/19 13:00 130/57 07/03/19 13:00 73 19 130/57 (81) 100 07/03/19 12:30 73 17 120/56 (77) 100 07/03/19 12:00 99.6 70 16 112/50 (70) 99 07/03/19 12:00 112/50 07/03/19 12:00 69 07/03/19 12:00 Mechanical Ventilator 07/03/19 12:00 35 Intake and Output 07/03/19 07/04/19 19:00 07:00 Intake Total 1517.00 ml 1481.96 ml Output Total 1190 ml 830 ml Balance 327.00 ml 651.96 ml Intake Free Water 70 ml IV Total 917.00 ml 751.96 ml Tube Feeding 510 ml 660 ml Other 90 ml Output Urine Total 1190 ml 830 ml # Bowel Movements 1 Laboratory Tests 07/04/19 04:00: White Blood Count 9.1, Red Blood Count 3.44L, Hemoglobin 9.6L, Hematocrit 29.9L , Mean Corpuscular Volume 87, Mean Corpuscular Hemoglobin 28.0, Mean Corpuscular Hemoglobin Concent 32.2, Red Cell Distribution Width 15.3H, Platelet Count 330, Mean Platelet Volume 7.5, Neutrophils (%) (Auto) 59.0, Lymphocytes (%) (Auto) 20.6, Monocytes (%) (Auto) 12.0H, Eosinophils (%) (Auto) 7.0H, Basophils (%) (Auto) 1.5, Sodium Level 141, Potassium Level 4.4, Chloride Level 109H, Carbon Dioxide Level 24, Anion Gap 8, Blood Urea Nitrogen 22H, Creatinine 1.2, Estimat Glomerular Filtration Rate 59.9, Glucose Level 135H, Calcium Level 8.1L, Phosphorus Level 2.4L, Magnesium Level 1.7L, Total Bilirubin 0.4, Aspartate Amino Transf (AST/SGOT) 14L, Alanine Aminotransferase ( ALT/SGPT) 19, Alkaline Phosphatase 203H, Total Protein 6.4, Albumin 2.2L, Globulin 4.2, Albumin/Globulin Ratio 0.5L Height (Feet): 5 Height (Inches): 8.00 Weight (Pounds): 149 General Appearance: no apparent distress EENT: other - trach-Vent Cardiovascular: normal rate Respiratory/Chest: decreased breath sounds Abdomen: distended Objective no change Sav Salvador MD Jul 04, 2019 11:34
--- NOTE | 2019-07-04 11:54 | Progress Note ---
DATE: 07/02/2019 SUBJECTIVE: The patient does react to flexion, lifting his left arm in a defensive position. PHYSICAL EXAMINATION: VITAL SIGNS: Blood pressure is 112/49, pulse is 74, respiration rate is 18, and temperature is 98.6 degrees. NEUROLOGIC EXAM: MENTAL STATUS: He is still comatose, but moves his left arm, occasionally his left leg. His left arm, he moves in a defensive position. He does not respond to commands or his name. CRANIAL NERVE EXAMINATION: CRANIAL NERVES II: Visual wiseman are absent. CRANIAL NERVES III, IV, AND : The eyes are in the midline except for a slight left exotropia. Pupils are approximately 2.5 mm and sluggishly reactive. CRANIAL NERVE V: There are decreased corneals bilaterally. CRANIAL NERVES VII THROUGH XII: Could not be tested, although did have a gag response to deep suctioning. MUSCLE EXAMINATION: He moves the left arm much more than the left leg. There is no movement on the right side. Reflexes are 0 with an upgoing toe on the right side, indefinite toe on the left side. SENSORY EXAM: He has deep pain to perception in the left arm and some in the chest to deep palpation. IMAGING DATA: His last EEG shows left frontal seizure activity without generalization. He had maybe 2 electrographic seizures of sharp waves lasting 120 seconds. IMPRESSION: I am going to stop the nasogastric Dilantin. His last level was about 15. He was started on the lorazepam and his Dilantin level to 200 mg IV b.i.d. In addition, I am adding Keppra 2000 mg IV one dose and 1000 mg b.i.d. The phenobarbital is going to be the same. The patient does have electrographic seizures. Therefore, it is not totally controlled, only partially controlled. However, these are focal without secondary generalization. PLAN: As above. Jd Gaffney MD DR: REED JOB#: [id number] CC:
--- NOTE | 2019-07-04 11:55 | Progress Note ---
DATE: 07/03/2019 NOTE: POOR AUDIO SUBJECTIVE: There is no seizures overnight. transfuse for significant anemia. eeg has not been done yet. PHYSICAL EXAMINATION: HEENT: She has been weaned off of Levophed. IMPRESSION: Status epilepticus . PLAN: 1. Continue the Keppra. 2.continue meds get eeg. Jd Gaffney MD DR: REED JOB#: [id number] CC: KENDRICK
[2019-07-04] MEDS ORDERED: Potassium Phosphate 20 MM in NS 275 ML IV ONE (12:30)
--- NOTE | 2019-07-04 13:00 | NUR ---
NURSE NOTES: 2nd bag of magnesium sulfate completed and started potassium phosphate 20mm through left upper arm PICC line. tube feeding remains at 55ml/hr on Osmolite 1.5 through the G-tube and administered one pack of Lenny and Prosource.
--- NOTE | 2019-07-04 14:24 | NUR ---
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 97.8 HR 67 RR 16 B/P 100/50 AC 16 TV 600 FIO2 30% MG 1.7 BUN 22 IS: LEVOPHED GTT IVF D5NS@40ML/HR CEFEPIME IV KEPPRA IV DILANTIN IV K-PHOS IV ICU STATUS
--- NOTE | 2019-07-04 15:04 | NUR ---
NURSE NOTES: Sponge bath provided to patient and all bed linen changed, tube feeding remains at 55ml/hr with Osmolite 1.5, patient reposition and heels elevated using pillows, Levophed turned off at 1415 since Bp was 130/67. patient currently BP is 122/58 with HR at 70 in sinus rhythm, remains on ventilator with FIO2 30% with saturations at 100%.
--- NOTE | 2019-07-04 15:04 | Hematology/Onc Progress Note ---
Assessment/Plan Assessment/Plan ASSESSMENT/RECOMMENDATIONS # Anemia of chronic disease due to underlying chronic medical issues, multifactorial --> Anemia w/u has been reviewed and c/w acd ferritin 635, tibc 160 --> No evidence of hemolysis is noted, peripheral smear has been reviewed. --> Hgb goal >7. Transfuse prn. --> Epogen or iron at this time is not particularly indicated --> unable to obtain consent, with no family --> r/o hemolysis as well --> hgb 7.5-->8-->8.7-->8.2-->7.8-->8-->7.4-->8.8-->8.3-->8->9.5->8.2-->7.5->7.6 ->9.6 --> 06/26: EGD/COLO with diverticulosis --> spep is negative for bands # Leukocytosis. Likely related to underlying infection versus reactive process. patient with septic shock on admission --> Peripheral has been reviewed--> rouleaux formation on smear --> Medications have been reviewed --> Imaging has been reviewed. CXR shows Suboptimal positioning. No interval consolidation, overt edema or other acute cardiopulmonary findings. 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 Greatly appreciate consultation. Subjective Constitutional: Denies: no symptoms, chills, fever, malaise, weakness, other HEENT: Denies: no symptoms, eye pain, blurred vision, tearing, double vision, ear pain, ear discharge, nose pain, nose congestion, throat pain, throat swelling, mouth pain, mouth swelling, other Cardiovascular: Denies: no symptoms, chest pain, edema, irregular heart rate, lightheadedness, palpitations, syncope, other Respiratory: Denies: no symptoms, cough, shortness of breath, SOB with excertion, SOB at rest, sputum, wheezing, other Gastrointestinal/Abdominal: Denies: no symptoms, abdomen distended, abdominal pain, black stools, tarry stools, blood in stool, constipated, diarrhea, difficulty swallowing, nausea, poor appetite, poor fluid intake, rectal bleeding , vomiting, other Genitourinary: Denies: no symptoms, burning, discharge, frequency, flank pain, hematuria, incontinence, pain, urgency, other Endocrine: Denies: no symptoms, excessive sweating, flushing, intolerance to cold, intolerance to heat, increased hunger, increased thirst, increased urine, unexplained weight gain, unexplained weight loss, other Allergies: Coded Allergies: NO KNOWN DRUG ALLERGIES (Verified Allergy, Unknown, 09/11/16) Subjective 06/17: blood transfusion completed, on low dose pressors, no bleeding noted 06/19: dw rn, no major events, cbc reviewed, tube feeds ongoing 06/22: no major changes, no bleeding or night sweats, on abx, in sariah 06/23: no f/c, no bleeding, labs noted, in sariah, hgb 8, plt 120k 06/24: labs reviewed, no bleeding, no night sweats, no bleeding 06/25: heparin held for potential bleed, gt is clamped, no events, no fc 06/26: for egd today with gi, bleeding noted, requiring prbc transf 06/27: gi procedure was done today and noted for diverticulosis, otherwise cbc stable 06/28: remains stable, being treated for gerd, hgb 8, no bleeding 06/29: no bleeding noted, no chills, no night sweats, no fc 06/30: no bleeding, on pressors, no major changes hgb 8.2 07/01: on pressors, with gt feeds, seen by gi wbc is better 07/02: 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, is off pressor in icu, labs noted, liya rn 07/03: on vent, prbc transfusion going, no major changes, no bleeding 07/04: no events noted, on trach/vent, no bleeding, labs noted levo held Objective Objective Current Medications Medications (Trade) Dose Ordered Sig/Wanda Route PRN Reason Start Time Stop Time Status Last Admin Dose Admin Acetaminophen (Tylenol) 650 mg Q4H PRN GT fever (temp>100.5F) 06/29/19 19:33 07/29/19 19:32 06/30/19 18:54 Cefepime HCl 1 gm/ Dextrose 55 ml @ 110 mls/hr EVERY 12 HOURS IVPB 06/30/19 13:30 07/07/19 13:29 07/04/19 08:10 Chlorhexidine Gluconate (Jasmin-Hex 2%) 1 applic DAILY@1999 TOPIC 06/29/19 20:00 07/20/19 19:59 07/03/19 20:08 Dextrose/Sodium Chloride 1,000 ml @ 50 mls/hr Q20H IV 06/30/19 14:30 07/30/19 14:29 07/04/19 01:00 Lansoprazole (Prevacid) 30 mg BID GT 07/01/19 18:00 07/31/19 17:59 07/04/19 08:10 Levetiracetam 100 ml @ 400 mls/hr Q12HR IVPB 07/03/19 09:00 08/02/19 08:59 07/04/19 08:56 Levothyroxine Sodium (Synthroid) 88 mcg DAILY@0630 GT 06/30/19 06:30 07/20/19 06:29 07/04/19 05:38 Lorazepam (Ativan 2mg/ml 1ml) 2 mg Q4H PRN IVP For Seizures 06/29/19 19:33 07/06/19 19:32 Midodrine (Pro-Amatine) 10 mg EVERY 8 HOURS GT 07/01/19 14:00 07/17/19 12:59 07/04/19 14:14 Norepinephrine Bitartrate 4 mg/ Dextrose 250 ml @ 0 mls/hr Q24H IV 06/29/19 22:30 07/29/19 22:29 07/03/19 19:30 Ondansetron HCl (Zofran) 4 mg Q6H PRN IVP Nausea & Vomiting 06/29/19 19:33 07/29/19 19:32 Phenobarbital (PHENobarbital) 60 mg Q8HR NG 07/01/19 14:00 07/31/19 13:59 07/04/19 14:15 Phenytoin 200 mg/ Sodium Chloride 59 ml @ 118 mls/hr Q12HR IVPB 07/03/19 09:00 08/02/19 08:59 07/04/19 09:27 Polyethylene Glycol (Miralax) 17 gm DAILYPRN PRN GT Constipation 06/29/19 19:33 07/29/19 19:32 Potassium Phosphate 20 mm/ Sodium Chloride 281.6667 ml @ 46.944 m... ONCE ONCE IV 07/04/19 12:30 07/04/19 18:29 07/04/19 12:55 Sucralfate (Carafate) 1 gm EVERY 8 HOURS GT 06/29/19 22:00 07/21/19 08:59 07/04/19 14:14 Zinc Oxide (Zinc Oxide) 1 applic QHS TOPIC 06/29/19 21:00 07/21/19 08:59 07/03/19 20:09 Last 24 Hour Vital Signs Date Time Temp Pulse Resp B/P (MAP) Pulse Ox O2 Delivery O2 Flow Rate FiO2 07/04/19 14:30 75 19 148/66 (93) 96 07/04/19 14:30 67 16 30 07/04/19 14:15 130/67 07/04/19 14:00 69 17 142/66 (91) 96 07/04/19 14:00 142/66 07/04/19 13:30 63 17 86/43 (57) 98 07/04/19 13:00 67 16 124/91 (102) 98 07/04/19 13:00 124/91 07/04/19 12:49 68 16 30 07/04/19 12:30 67 16 123/61 (81) 94 07/04/19 12:00 Mechanical Ventilator 07/04/19 12:00 62 07/04/19 12:00 97.8 64 16 100/50 (67) 98 07/04/19 12:00 30 07/04/19 12:00 123/61 07/04/19 11:45 67 16 122/60 (80) 95 07/04/19 11:30 65 16 119/54 (75) 96 07/04/19 11:15 79/41 07/04/19 11:15 59 16 79/41 (54) 98 07/04/19 11:00 60 16 83/46 (58) 98 07/04/19 10:35 71 17 99 Mechanical Ventilator 30 07/04/19 10:34 71 17 30 07/04/19 10:30 66 16 127/65 (85) 100 07/04/19 10:00 70 16 93/48 (63) 100 07/04/19 09:30 71 16 151/76 (101) 100 07/04/19 09:00 152/76 07/04/19 09:00 77 17 152/76 (101) 100 07/04/19 08:46 77 17 30 07/04/19 08:30 77 17 161/86 (111) 99 07/04/19 08:00 142/73 07/04/19 08:00 69 16 142/73 (96) 100 07/04/19 08:00 Mechanical Ventilator 07/04/19 08:00 30 07/04/19 08:00 66 07/04/19 07:30 97.1 67 16 146/85 (105) 98 07/04/19 07:10 58 16 30 07/04/19 07:00 89/50 07/04/19 06:45 51 16 83/43 (56) 100 07/04/19 06:30 52 16 91/48 (62) 100 07/04/19 06:15 55 16 117/52 (73) 100 07/04/19 06:00 117/52 07/04/19 06:00 50 16 96/52 (67) 100 07/04/19 05:45 54 16 133/63 (86) 100 07/04/19 05:30 49 16 107/55 (72) 100 07/04/19 05:22 51 16 97/50 (66) 100 07/04/19 05:20 53 16 106/52 (70) 100 07/04/19 05:15 49 16 87/58 (68) 100 07/04/19 05:00 60 16 126/62 (83) 100 07/04/19 05:00 126/62 07/04/19 04:55 56 16 30 07/04/19 04:45 65 16 141/70 (93) 100 07/04/19 04:30 68 19 138/70 (92) 100 07/04/19 04:15 70 20 154/82 (106) 100 07/04/19 04:00 30 07/04/19 04:00 99.4 67 17 155/71 (99) 99 07/04/19 04:00 137/75 07/04/19 04:00 Mechanical Ventilator 07/04/19 04:00 56 07/04/19 03:45 69 21 146/71 (96) 99 07/04/19 03:30 66 15 136/65 (88) 100 07/04/19 03:15 65 16 155/73 (100) 100 07/04/19 03:05 52 16 30 07/04/19 03:00 148/56 07/04/19 03:00 63 17 142/65 (90) 100 07/04/19 02:45 60 16 144/63 (90) 100 07/04/19 02:30 59 15 141/59 (86) 100 07/04/19 02:15 58 16 133/65 (87) 100 07/04/19 02:00 54 15 128/55 (79) 100 07/04/19 02:00 128/55 07/04/19 01:45 50 16 92/45 (61) 99 07/04/19 01:41 49 16 86/41 (56) 100 07/04/19 01:30 54 16 98/49 (65) 100 07/04/19 01:15 51 16 114/63 (80) 100 07/04/19 01:14 51 16 30 07/04/19 01:00 56 17 132/58 (82) 100 07/04/19 01:00 98/49 07/04/19 00:45 60 15 149/71 (97) 100 07/04/19 00:30 52 16 118/58 (78) 100 07/04/19 00:15 59 16 149/68 (95) 100 07/04/19 00:00 Mechanical Ventilator 07/04/19 00:00 149/68 07/04/19 00:00 99.3 59 16 149/66 (93) 100 07/04/19 00:00 58 07/04/19 00:00 30 07/03/19 23:45 58 16 148/68 (94) 100 07/03/19 23:30 60 16 150/75 (100) 100 07/03/19 23:15 53 16 133/70 (91) 100 07/03/19 23:03 68 16 30 07/03/19 23:00 53 16 123/56 (78) 99 07/03/19 23:00 123/56 07/03/19 22:45 59 18 151/63 (92) 100 07/03/19 22:30 50 16 138/76 (96) 99 07/03/19 22:15 60 18 151/69 (96) 100 07/03/19 22:00 155/78 07/03/19 22:00 66 17 155/74 (101) 100 07/03/19 21:45 68 17 162/76 (104) 100 07/03/19 21:30 71 19 152/65 (94) 100 07/03/19 21:15 71 20 153/69 (97) 100 07/03/19 21:08 72 18 30 07/03/19 21:03 153/69 07/03/19 21:00 71 17 141/65 (90) 100 07/03/19 20:45 98.9 71 19 131/59 (83) 100 07/03/19 20:30 73 18 134/69 (90) 100 07/03/19 20:15 73 17 131/72 (91) 100 07/03/19 20:00 35 07/03/19 20:00 Mechanical Ventilator 07/03/19 20:00 75 07/03/19 20:00 75 17 134/82 (99) 100 07/03/19 19:45 68 17 111/60 (77) 100 07/03/19 19:30 133/60 07/03/19 19:30 71 18 118/53 (74) 100 07/03/19 19:15 72 20 118/57 (77) 100 07/03/19 19:00 133/60 07/03/19 19:00 71 17 133/60 (84) 100 10/24/19 18:56 72 16 30 07/03/19 18:30 70 18 125/53 (77) 100 07/03/19 18:00 72 17 123/60 (81) 100 07/03/19 18:00 123/60 07/03/19 17:30 71 19 127/57 (80) 100 07/03/19 17:01 67 16 35 07/03/19 17:00 124/64 07/03/19 17:00 99.6 68 17 124/62 (82) 100 07/03/19 16:40 99.8 65 16 101/49 (66) 99 07/03/19 16:30 66 16 103/54 (70) 99 07/03/19 16:00 73 07/03/19 16:00 Mechanical Ventilator 07/03/19 16:00 99.8 71 19 109/56 (73) 100 07/03/19 16:00 102/50 07/03/19 16:00 35 07/03/19 15:30 74 18 122/58 (79) 99 07/03/19 15:00 73 19 124/65 (84) 100 07/03/19 15:00 124/65 07/03/19 14:35 74 17 35 07/03/19 14:30 70 18 107/48 (67) 100 07/03/19 14:00 115/54 07/03/19 14:00 73 19 115/54 (74) 99 07/03/19 13:30 74 18 127/49 (75) 99 07/03/19 13:27 73 18 35 07/03/19 13:00 130/57 07/03/19 13:00 73 19 130/57 (81) 100 07/03/19 12:30 73 17 120/56 (77) 100 07/03/19 12:00 99.6 70 16 112/50 (70) 99 07/03/19 12:00 112/50 07/03/19 12:00 69 07/03/19 12:00 Mechanical Ventilator 07/03/19 12:00 35 07/03/19 11:30 70 19 120/53 (75) 100 07/03/19 11:00 122/55 07/03/19 11:00 71 16 128/59 (82) 100 07/03/19 10:51 67 17 35 10/24/19 10:30 68 16 123/53 (76) 100 07/03/19 10:00 134/61 07/03/19 10:00 72 16 134/61 (85) 99 07/03/19 09:30 72 17 128/57 (80) 100 07/03/19 09:00 72 17 124/54 (77) 100 07/03/19 09:00 124/54 07/03/19 08:53 72 21 35 07/03/19 08:30 70 18 124/68 (86) 100 07/03/19 08:00 Mechanical Ventilator 07/03/19 08:00 99.4 70 16 117/61 (79) 100 07/03/19 08:00 117/61 07/03/19 08:00 35 07/03/19 08:00 72 07/03/19 07:30 71 16 128/76 (93) 100 07/03/19 07:00 72 17 133/55 (81) 100 07/03/19 06:30 73 16 126/52 (76) 100 07/03/19 06:30 70 16 35 07/03/19 06:00 68 16 121/59 (79) 100 07/03/19 06:00 121/59 07/03/19 05:30 70 21 128/58 (81) 100 07/03/19 05:13 74 18 35 07/03/19 05:00 128/72 07/03/19 05:00 73 19 128/72 (90) 100 07/03/19 04:30 65 16 97/51 (66) 99 07/03/19 04:00 Mechanical Ventilator 07/03/19 04:00 35 07/03/19 04:00 111/50 07/03/19 04:00 99.0 71 17 111/50 (70) 100 07/03/19 03:51 72 07/03/19 03:30 74 19 133/56 (81) 100 07/03/19 03:00 70 16 123/58 (79) 100 07/03/19 03:00 123/58 07/03/19 02:54 69 16 35 07/03/19 02:30 69 16 108/50 (69) 99 07/03/19 02:15 69 17 113/50 (71) 100 07/03/19 02:00 100/48 07/03/19 02:00 66 16 100/48 (65) 99 07/03/19 01:45 68 16 95/52 (66) 99 07/03/19 01:30 72 18 111/56 (74) 100 07/03/19 01:15 70 17 108/53 (71) 99 07/03/19 01:00 119/48 07/03/19 01:00 70 18 119/48 (71) 100 07/03/19 00:53 75 19 35 07/03/19 00:30 71 17 117/55 (75) 99 07/03/19 00:17 71 07/03/19 00:15 72 18 132/52 (78) 100 07/03/19 00:00 35 07/03/19 00:00 99.4 73 20 129/62 (84) 100 07/03/19 00:00 129/62 07/03/19 00:00 Mechanical Ventilator 07/02/19 23:30 72 19 126/58 (80) 100 07/02/19 23:15 72 15 128/51 (76) 100 07/02/19 23:00 71 14 128/55 (79) 100 07/02/19 23:00 128/55 07/02/19 22:59 69 18 35 07/02/19 22:45 68 19 129/58 (81) 100 07/02/19 22:40 69 20 121/51 (74) 100 07/02/19 22:35 68 19 120/53 (75) 100 07/02/19 22:30 116/62 07/02/19 22:30 67 18 116/62 (80) 100 07/02/19 22:25 66 18 112/53 (72) 100 07/02/19 22:20 64 19 116/64 (81) 100 07/02/19 22:15 65 15 105/51 (69) 100 07/02/19 22:10 87/45 07/02/19 22:10 57 16 87/45 (59) 99 07/02/19 22:05 61 16 71/33 (46) 99 07/02/19 22:05 71/33 07/02/19 22:00 69/35 07/02/19 22:00 61 16 69/35 (46) 98 07/02/19 21:45 63 18 73/42 (52) 100 07/02/19 21:45 73/42 07/02/19 21:41 66 20 87/42 (57) 98 07/02/19 21:30 65 18 100 07/02/19 21:15 64 18 99 07/02/19 21:00 64 20 129/58 (81) 100 07/02/19 20:58 65 16 35 07/02/19 20:45 60 16 117/55 (75) 99 07/02/19 20:30 65 16 125/47 (73) 100 07/02/19 20:00 35 07/02/19 20:00 98.5 78 19 123/58 (79) 100 07/02/19 20:00 Mechanical Ventilator 07/02/19 19:42 71 07/02/19 19:30 75 17 147/70 (95) 100 07/02/19 19:00 70 18 143/52 (82) 100 07/02/19 18:58 143/55 07/02/19 18:39 78 17 35 07/02/19 18:00 74 18 112/49 (70) 99 07/02/19 18:00 112/49 07/02/19 17:00 123/56 07/02/19 17:00 75 19 120/46 (70) 99 07/02/19 16:41 80 26 35 07/02/19 16:00 98.6 77 17 134/64 (87) 99 07/02/19 16:00 125/59 07/02/19 16:00 35 07/02/19 16:00 Mechanical Ventilator 07/02/19 16:00 74 Intake and Output 07/03/19 07/04/19 19:00 07:00 Intake Total 1517.00 ml 1481.96 ml Output Total 1190 ml 830 ml Balance 327.00 ml 651.96 ml Intake Free Water 70 ml IV Total 917.00 ml 751.96 ml Tube Feeding 510 ml 660 ml Other 90 ml Output Urine Total 1190 ml 830 ml # Bowel Movements 1 Labs Test 07/02/19 04:45 07/02/19 07:47 07/02/19 16:49 07/03/19 03:40 White Blood Count 6.2 K/UL (4.8-10.8) 6.8 K/UL (4.8-10.8) Red Blood Count 2.71 M/UL (4.70-6.10) 2.78 M/UL (4.70-6.10) Hemoglobin 7.5 G/DL (14.2-18.0) 7.6 G/DL (14.2-18.0) Hematocrit 23.5 % (42.0-52.0) 24.2 % (42.0-52.0) Mean Corpuscular Volume 87 FL (80-99) 87 FL (80-99) Mean Corpuscular Hemoglobin 27.8 PG (27.0-31.0) 27.6 PG (27.0-31.0) Mean Corpuscular Hemoglobin Concent 32.1 G/DL (32.0-36.0) 31.6 G/DL (32.0-36.0) Red Cell Distribution Width 15.9 % (11.6-14.8) 16.1 % (11.6-14.8) Platelet Count 302 K/UL (150-450) 330 K/UL (150-450) Mean Platelet Volume 7.5 FL (6.5-10.1) 7.6 FL (6.5-10.1) Neutrophils (%) (Auto) % (45.0-75.0) % (45.0-75.0) Lymphocytes (%) (Auto) % (20.0-45.0) % (20.0-45.0) Monocytes (%) (Auto) % (1.0-10.0) % (1.0-10.0) Eosinophils (%) (Auto) % (0.0-3.0) % (0.0-3.0) Basophils (%) (Auto) % (0.0-2.0) % (0.0-2.0) Sodium Level 144 MMOL/L (136-145) 143 MMOL/L (136-145) Potassium Level 4.3 MMOL/L (3.5-5.1) 4.3 MMOL/L (3.5-5.1) Chloride Level 112 MMOL/L (98-107) 111 MMOL/L (98-107) Carbon Dioxide Level 24 MMOL/L (21-32) 25 MMOL/L (21-32) Anion Gap 8 mmol/L (5-15) 7 mmol/L (5-15) Blood Urea Nitrogen 18 mg/dL (7-18) 21 mg/dL (7-18) Creatinine 1.3 MG/DL (0.55-1.30) 1.3 MG/DL (0.55-1.30) Estimat Glomerular Filtration Rate 54.6 mL/min (>60) 54.6 mL/min (>60) Glucose Level 104 MG/DL (74-106) 131 MG/DL (74-106) Calcium Level 8.2 MG/DL (8.5-10.1) 8.2 MG/DL (8.5-10.1) Phosphorus Level 2.7 MG/DL (2.5-4.9) 2.4 MG/DL (2.5-4.9) Magnesium Level 1.8 MG/DL (1.8-2.4) 1.8 MG/DL (1.8-2.4) Total Bilirubin 0.2 MG/DL (0.2-1.0) 0.2 MG/DL (0.2-1.0) Aspartate Amino Transf (AST/SGOT) 13 U/L (15-37) 13 U/L (15-37) Alanine Aminotransferase (ALT/SGPT) 24 U/L (12-78) 21 U/L (12-78) Alkaline Phosphatase 170 U/L (46-116) 180 U/L (46-116) C-Reactive Protein, Quantitative 9.1 mg/dL (0.00-0.90) 6.5 mg/dL (0.00-0.90) Pro-B-Type Natriuretic Peptide 67859 pg/mL (0-125) Total Protein 5.9 G/DL (6.4-8.2) 5.9 G/DL (6.4-8.2) Albumin 2.2 G/DL (3.4-5.0) 2.0 G/DL (3.4-5.0) Globulin 3.7 g/dL 3.9 g/dL Albumin/Globulin Ratio 0.6 (1.0-2.7) 0.5 (1.0-2.7) Arterial Blood pH 7.435 (7.350-7.450) Arterial Blood Partial Pressure CO2 35.6 mmHg (35.0-45.0) Arterial Blood Partial Pressure O2 119.7 mmHg (75.0-100.0) Arterial Blood HCO3 23.4 mmol/L (22.0-26.0) Arterial Blood Oxygen Saturation 98.3 % (95-100) Arterial Blood Base Excess -0.7 (-2-2) Ger Test Positive Vancomycin Level Trough 38.7 ug/mL (5.0-12.0) Differential Total Cells Counted 100 Neutrophils % (Manual) 51 % (45-75) Lymphocytes % (Manual) 31 % (20-45) Monocytes % (Manual) 11 % (1-10) Eosinophils % (Manual) 7 % (0-3) Basophils % (Manual) 0 % (0-2) Band Neutrophils 0 % (0-8) Platelet Estimate Adequate Platelet Morphology Normal Hypochromasia 1+ Anisocytosis 1+ Erythrocyte Sedimentation Rate 70 MM/HR (0-20) Phenytoin (Dilantin) Level 19.2 ug/mL (10-20) Phenobarbital Level 22.6 ug/mL (15-40) Test 07/04/19 04:00 White Blood Count 9.1 K/UL (4.8-10.8) Red Blood Count 3.44 M/UL (4.70-6.10) Hemoglobin 9.6 G/DL (14.2-18.0) Hematocrit 29.9 % (42.0-52.0) Mean Corpuscular Volume 87 FL (80-99) Mean Corpuscular Hemoglobin 28.0 PG (27.0-31.0) Mean Corpuscular Hemoglobin Concent 32.2 G/DL (32.0-36.0) Red Cell Distribution Width 15.3 % (11.6-14.8) Platelet Count 330 K/UL (150-450) Mean Platelet Volume 7.5 FL (6.5-10.1) Neutrophils (%) (Auto) 59.0 % (45.0-75.0) Lymphocytes (%) (Auto) 20.6 % (20.0-45.0) Monocytes (%) (Auto) 12.0 % (1.0-10.0) Eosinophils (%) (Auto) 7.0 % (0.0-3.0) Basophils (%) (Auto) 1.5 % (0.0-2.0) Sodium Level 141 MMOL/L (136-145) Potassium Level 4.4 MMOL/L (3.5-5.1) Chloride Level 109 MMOL/L (98-107) Carbon Dioxide Level 24 MMOL/L (21-32) Anion Gap 8 mmol/L (5-15) Blood Urea Nitrogen 22 mg/dL (7-18) Creatinine 1.2 MG/DL (0.55-1.30) Estimat Glomerular Filtration Rate 59.9 mL/min (>60) Glucose Level 135 MG/DL (74-106) Calcium Level 8.1 MG/DL (8.5-10.1) Phosphorus Level 2.4 MG/DL (2.5-4.9) Magnesium Level 1.7 MG/DL (1.8-2.4) Total Bilirubin 0.4 MG/DL (0.2-1.0) Aspartate Amino Transf (AST/SGOT) 14 U/L (15-37) Alanine Aminotransferase (ALT/SGPT) 19 U/L (12-78) Alkaline Phosphatase 203 U/L (46-116) Total Protein 6.4 G/DL (6.4-8.2) Albumin 2.2 G/DL (3.4-5.0) Globulin 4.2 g/dL Albumin/Globulin Ratio 0.5 (1.0-2.7) Height (Feet): 5 Height (Inches): 8.00 Weight (Pounds): 149 Objective PHYSICAL EXAMINATION: VITAL SIGNS: Have been reviewed HEENT: Trach/vent site ++ CHEST: Bibasilar rales CV: Regular rate and rhythm. GI: Positive bowel sounds. G-tube++ EXTREMITIES: + edema. NEUROLOGICAL: Reflexes equal on both sides. Nikos Nath MD Jul 04, 2019 15:04
--- NOTE | 2019-07-04 15:13 | Infectious Diseases Prog Note ---
Assessment/Plan Assessment/Plan Mr. Huffman is a 68 yo male with PMHx of of chronic resp failure trach/vent dependant, diffuse ulcerative esophagitis, peptic esophageal stricture, asthma, GERD, Dm2, CVA/TIA w/ hemiplegia, functional quadriplegia, CAD, CHF, ESBL UTI , GIB s/p multiple EGDs in the past, schizoaffective disorder, Dementia, hypothyroidism, malnutrition, non verbal, infected obstuctive ureterolithiasis/ w abscess s/p L NT palced 12/2018, encephalopathy, Alzheimer's disease, multiple admissions, subacute facility resident who was sent to the for hypotension and bradycardia. Shock, recurrent (06/29)- SP- r/o septic vs neurogenic Probable recurent PNA -07/02 CXR: . Interstitial edema with moderate bilateral layering pleural effusions, grossly unchanged. Bibasilar airspace opacities which likely represent combination of pleural fluid and atelectasis, but pneumonia should be excluded clinically. -06/30 u/a tntc, nit neg, leuk +3; ucx C. tropicalis Bcx NTD CXR: Bilateral pleural effusions and bilateral interstitial and airspace edema are unchanged. sp cx GNR MDR PsA (S AMikacin), MDR P. mirabilis ( S Zosyn, Ertapenem, Amikacin) Status epilepticus Leukocytosis; mild recurrent- resolved Hypothermia; SP > Low grade fever 06/30; SP Septic Shock, SP- likely 2ry to UTI and PNA, sp Rx off pressors now Hx of resistant infections 06/23 CXR; Bilateral right greater than left pleural effusions are again demonstrated. Bilateral interstitial and airspace edema persists, unchanged Urine Cx 06/14/19 - >100k ESBL P, stuarti, ESBL P mirabilis (both S Ertapenem , ZOsyn) Blood Cx - NTD CXR show probable pna sp cx PsA (R imipenem, I levaquin), S. maltophila (S bactrim, levaquin) GT leakage with cellulitis, SP -wound cx MDR/CRE K.pna, MDR PsA (colonizers) Chronic resp failure trach/vent dependant asthma Dm2 CVA/TIA w/ hemiplegia Functional quadriplegia CAD CHF GIB s/p multiple EGDs in the past Schizoaffective disorder Dementia Hypothyroidism Non verbal Alzheimer's disease PLAN: -Switch empiric Cefepime #5 to IV Amikacin -07/03 SP IV Vancomycin #4 -06/27 SP Levaquin #5 -06/24 SP IV Amikacin #10 -06/23 SP Ertapenem #9 and IV Vancomycin #9 -06/17 SP PO Vancomycin #3 -06/16 SP Flagyl #2 - monitor CBC and Temps -wound care per hospital protocol -GI f/u -f/u Bcx x2 Thank you for this consult. [facility] will continue to follow the patient with you during this hospitalization. Subjective Allergies: Coded Allergies: NO KNOWN DRUG ALLERGIES (Verified Allergy, Unknown, 09/11/16) Subjective afebrile >72hrs off levophed no leukocytosis Objective Vital Signs Last 24 Hour Vital Signs Date Time Temp Pulse Resp B/P (MAP) Pulse Ox O2 Delivery O2 Flow Rate FiO2 07/04/19 14:30 75 19 148/66 (93) 96 07/04/19 14:30 67 16 30 07/04/19 14:15 130/67 07/04/19 14:00 69 17 142/66 (91) 96 07/04/19 14:00 142/66 07/04/19 13:30 63 17 86/43 (57) 98 07/04/19 13:00 67 16 124/91 (102) 98 07/04/19 13:00 124/91 07/04/19 12:49 68 16 30 07/04/19 12:30 67 16 123/61 (81) 94 07/04/19 12:00 Mechanical Ventilator 07/04/19 12:00 62 07/04/19 12:00 97.8 64 16 100/50 (67) 98 07/04/19 12:00 30 07/04/19 12:00 123/61 07/04/19 11:45 67 16 122/60 (80) 95 07/04/19 11:30 65 16 119/54 (75) 96 07/04/19 11:15 79/41 07/04/19 11:15 59 16 79/41 (54) 98 07/04/19 11:00 60 16 83/46 (58) 98 07/04/19 10:35 71 17 99 Mechanical Ventilator 30 07/04/19 10:34 71 17 30 07/04/19 10:30 66 16 127/65 (85) 100 07/04/19 10:00 70 16 93/48 (63) 100 07/04/19 09:30 71 16 151/76 (101) 100 07/04/19 09:00 152/76 07/04/19 09:00 77 17 152/76 (101) 100 07/04/19 08:46 77 17 30 07/04/19 08:30 77 17 161/86 (111) 99 07/04/19 08:00 142/73 07/04/19 08:00 69 16 142/73 (96) 100 07/04/19 08:00 Mechanical Ventilator 07/04/19 08:00 30 07/04/19 08:00 66 07/04/19 07:30 97.1 67 16 146/85 (105) 98 07/04/19 07:10 58 16 30 07/04/19 07:00 89/50 07/04/19 06:45 51 16 83/43 (56) 100 07/04/19 06:30 52 16 91/48 (62) 100 07/04/19 06:15 55 16 117/52 (73) 100 07/04/19 06:00 117/52 07/04/19 06:00 50 16 96/52 (67) 100 07/04/19 05:45 54 16 133/63 (86) 100 07/04/19 05:30 49 16 107/55 (72) 100 07/04/19 05:22 51 16 97/50 (66) 100 07/04/19 05:20 53 16 106/52 (70) 100 07/04/19 05:15 49 16 87/58 (68) 100 07/04/19 05:00 60 16 126/62 (83) 100 07/04/19 05:00 126/62 07/04/19 04:55 56 16 30 07/04/19 04:45 65 16 141/70 (93) 100 07/04/19 04:30 68 19 138/70 (92) 100 07/04/19 04:15 70 20 154/82 (106) 100 07/04/19 04:00 30 07/04/19 04:00 99.4 67 17 155/71 (99) 99 07/04/19 04:00 137/75 07/04/19 04:00 Mechanical Ventilator 07/04/19 04:00 56 07/04/19 03:45 69 21 146/71 (96) 99 07/04/19 03:30 66 15 136/65 (88) 100 07/04/19 03:15 65 16 155/73 (100) 100 07/04/19 03:05 52 16 30 07/04/19 03:00 148/56 07/04/19 03:00 63 17 142/65 (90) 100 07/04/19 02:45 60 16 144/63 (90) 100 07/04/19 02:30 59 15 141/59 (86) 100 07/04/19 02:15 58 16 133/65 (87) 100 07/04/19 02:00 54 15 128/55 (79) 100 07/04/19 02:00 128/55 07/04/19 01:45 50 16 92/45 (61) 99 07/04/19 01:41 49 16 86/41 (56) 100 07/04/19 01:30 54 16 98/49 (65) 100 07/04/19 01:15 51 16 114/63 (80) 100 07/04/19 01:14 51 16 30 07/04/19 01:00 56 17 132/58 (82) 100 07/04/19 01:00 98/49 07/04/19 00:45 60 15 149/71 (97) 100 07/04/19 00:30 52 16 118/58 (78) 100 07/04/19 00:15 59 16 149/68 (95) 100 07/04/19 00:00 Mechanical Ventilator 07/04/19 00:00 149/68 07/04/19 00:00 99.3 59 16 149/66 (93) 100 07/04/19 00:00 58 07/04/19 00:00 30 07/03/19 23:45 58 16 148/68 (94) 100 07/03/19 23:30 60 16 150/75 (100) 100 07/03/19 23:15 53 16 133/70 (91) 100 07/03/19 23:03 68 16 30 07/03/19 23:00 53 16 123/56 (78) 99 07/03/19 23:00 123/56 07/03/19 22:45 59 18 151/63 (92) 100 07/03/19 22:30 50 16 138/76 (96) 99 07/03/19 22:15 60 18 151/69 (96) 100 07/03/19 22:00 155/78 07/03/19 22:00 66 17 155/74 (101) 100 07/03/19 21:45 68 17 162/76 (104) 100 07/03/19 21:30 71 19 152/65 (94) 100 07/03/19 21:15 71 20 153/69 (97) 100 07/03/19 21:08 72 18 30 07/03/19 21:03 153/69 07/03/19 21:00 71 17 141/65 (90) 100 07/03/19 20:45 98.9 71 19 131/59 (83) 100 07/03/19 20:30 73 18 134/69 (90) 100 07/03/19 20:15 73 17 131/72 (91) 100 07/03/19 20:00 35 07/03/19 20:00 Mechanical Ventilator 07/03/19 20:00 75 07/03/19 20:00 75 17 134/82 (99) 100 07/03/19 19:45 68 17 111/60 (77) 100 07/03/19 19:30 133/60 07/03/19 19:30 71 18 118/53 (74) 100 07/03/19 19:15 72 20 118/57 (77) 100 07/03/19 19:00 133/60 07/03/19 19:00 71 17 133/60 (84) 100 07/03/19 18:56 72 16 30 07/03/19 18:30 70 18 125/53 (77) 100 07/03/19 18:00 72 17 123/60 (81) 100 07/03/19 18:00 123/60 07/03/19 17:30 71 19 127/57 (80) 100 07/03/19 17:01 67 16 35 07/03/19 17:00 124/64 07/03/19 17:00 99.6 68 17 124/62 (82) 100 07/03/19 16:40 99.8 65 16 101/49 (66) 99 07/03/19 16:30 66 16 103/54 (70) 99 07/03/19 16:00 73 07/03/19 16:00 Mechanical Ventilator 07/03/19 16:00 99.8 71 19 109/56 (73) 100 07/03/19 16:00 102/50 07/03/19 16:00 35 07/03/19 15:30 74 18 122/58 (79) 99 Height (Feet): 5 Height (Inches): 8.00 Weight (Pounds): 149 Objective Gen: On vent in IVU HEENT: NCAT, MMM, PERRL, No Oral lesion, no scleral icterus NECK: supple, No LAD, No JVD, Trached LUNGS: Coarse B/L, No W/C CARDS: RRR, S1, S2, No M/R/G, ABD: Soft, NT, ND, No R/G, + BS, No HSM, No Masses, PEG : Deferred Ext: C/C/E, Pulses 2+ B/L (DP, Rad): NEURO: A/O x 0, no following SKIN: Warm/dry, No rashes Laboratory Tests Test 07/04/19 04:00 White Blood Count 9.1 K/UL (4.8-10.8) Red Blood Count 3.44 M/UL (4.70-6.10) L Hemoglobin 9.6 G/DL (14.2-18.0) L Hematocrit 29.9 % (42.0-52.0) L Mean Corpuscular Volume 87 FL (80-99) Mean Corpuscular Hemoglobin 28.0 PG (27.0-31.0) Mean Corpuscular Hemoglobin Concent 32.2 G/DL (32.0-36.0) Red Cell Distribution Width 15.3 % (11.6-14.8) H Platelet Count 330 K/UL (150-450) Mean Platelet Volume 7.5 FL (6.5-10.1) Neutrophils (%) (Auto) 59.0 % (45.0-75.0) Lymphocytes (%) (Auto) 20.6 % (20.0-45.0) Monocytes (%) (Auto) 12.0 % (1.0-10.0) H Eosinophils (%) (Auto) 7.0 % (0.0-3.0) H Basophils (%) (Auto) 1.5 % (0.0-2.0) Sodium Level 141 MMOL/L (136-145) Potassium Level 4.4 MMOL/L (3.5-5.1) Chloride Level 109 MMOL/L (98-107) H Carbon Dioxide Level 24 MMOL/L (21-32) Anion Gap 8 mmol/L (5-15) Blood Urea Nitrogen 22 mg/dL (7-18) H Creatinine 1.2 MG/DL (0.55-1.30) Estimat Glomerular Filtration Rate 59.9 mL/min (>60) Glucose Level 135 MG/DL (74-106) H Calcium Level 8.1 MG/DL (8.5-10.1) L Phosphorus Level 2.4 MG/DL (2.5-4.9) L Magnesium Level 1.7 MG/DL (1.8-2.4) L Total Bilirubin 0.4 MG/DL (0.2-1.0) Aspartate Amino Transf (AST/SGOT) 14 U/L (15-37) L Alanine Aminotransferase (ALT/SGPT) 19 U/L (12-78) Alkaline Phosphatase 203 U/L (46-116) H Total Protein 6.4 G/DL (6.4-8.2) Albumin 2.2 G/DL (3.4-5.0) L Globulin 4.2 g/dL Albumin/Globulin Ratio 0.5 (1.0-2.7) L Current Medications Medications (Trade) Dose Ordered Sig/Wanda Route PRN Reason Start Time Stop Time Status Last Admin Dose Admin Acetaminophen (Tylenol) 650 mg Q4H PRN GT fever (temp>100.5F) 06/29/19 19:33 07/29/19 19:32 06/30/19 18:54 Cefepime HCl 1 gm/ Dextrose 55 ml @ 110 mls/hr EVERY 12 HOURS IVPB 06/30/19 13:30 07/07/19 13:29 07/04/19 08:10 Chlorhexidine Gluconate (Jasmin-Hex 2%) 1 applic DAILY@2000 TOPIC 06/29/19 20:00 07/20/19 19:59 07/03/19 20:08 Dextrose/Sodium Chloride 1,000 ml @ 50 mls/hr Q20H IV 06/30/19 14:30 07/30/19 14:29 07/04/19 01:00 Lansoprazole (Prevacid) 30 mg BID GT 07/01/19 18:00 07/31/19 17:59 07/04/19 08:10 Levetiracetam 100 ml @ 400 mls/hr Q12HR IVPB 07/03/19 09:00 08/02/19 08:59 07/04/19 08:56 Levothyroxine Sodium (Synthroid) 88 mcg DAILY@0630 GT 06/30/19 06:30 07/20/19 06:29 07/04/19 05:38 Lorazepam (Ativan 2mg/ml 1ml) 2 mg Q4H PRN IVP For Seizures 06/29/19 19:33 07/06/19 19:32 Midodrine (Pro-Amatine) 10 mg EVERY 8 HOURS GT 07/01/19 14:00 07/17/19 12:59 07/04/19 14:14 Norepinephrine Bitartrate 4 mg/ Dextrose 250 ml @ 0 mls/hr Q24H IV 06/29/19 22:30 07/29/19 22:29 07/03/19 19:30 Ondansetron HCl (Zofran) 4 mg Q6H PRN IVP Nausea & Vomiting 06/29/19 19:33 07/29/19 19:32 Phenobarbital (PHENobarbital) 60 mg Q8HR NG 07/01/19 14:00 07/31/19 13:59 07/04/19 14:15 Phenytoin 200 mg/ Sodium Chloride 59 ml @ 118 mls/hr Q12HR IVPB 07/03/19 09:00 08/02/19 08:59 07/04/19 09:27 Polyethylene Glycol (Miralax) 17 gm DAILYPRN PRN GT Constipation 06/29/19 19:33 07/29/19 19:32 Potassium Phosphate 20 mm/ Sodium Chloride 281.6667 ml @ 46.944 m... ONCE ONCE IV 07/04/19 12:30 07/04/19 18:29 07/04/19 12:55 Sucralfate (Carafate) 1 gm EVERY 8 HOURS GT 06/29/19 22:00 07/21/19 08:59 07/04/19 14:14 Zinc Oxide (Zinc Oxide) 1 applic QHS TOPIC 06/29/19 21:00 07/21/19 08:59 07/03/19 20:09 Lisy Lai M.D. Jul 04, 2019 15:13
[2019-07-04] MEDS ORDERED: Amikacin Rx to dose MISC PRN (15:15)
--- NOTE | 2019-07-04 15:28 | NUR ---
*-* INSURANCE *-* ALL CLINICALS AND REVIEWS HAVE BEEN FAXED TO: TYSHAWN DUDLEYM:[employer]
--- NOTE | 2019-07-04 16:22 | Surgery Progress Note ---
Surgery Progress Note Subjective Additional Comments Afebrile, HD stable, no leukocytosis, hemoglobin 9, electrolytes abnormal and being replaced, alk phos elevated Objective Last 24 Hour Vital Signs Date Time Temp Pulse Resp B/P (MAP) Pulse Ox O2 Delivery O2 Flow Rate FiO2 07/04/19 16:00 Mechanical Ventilator 07/04/19 16:00 30 07/04/19 16:00 97.6 63 16 113/52 (72) 99 07/04/19 16:00 69 07/04/19 15:30 69 16 119/65 (83) 98 07/04/19 15:00 70 18 122/58 (79) 100 07/04/19 14:30 75 19 148/66 (93) 96 07/04/19 14:30 67 16 30 07/04/19 14:15 130/67 07/04/19 14:00 69 17 142/66 (91) 96 07/04/19 14:00 142/66 07/04/19 13:30 63 17 86/43 (57) 98 07/04/19 13:00 67 16 124/91 (102) 98 07/04/19 13:00 124/91 07/04/19 12:49 68 16 30 07/04/19 12:30 67 16 123/61 (81) 94 07/04/19 12:00 Mechanical Ventilator 07/04/19 12:00 62 07/04/19 12:00 97.8 64 16 100/50 (67) 98 07/04/19 12:00 30 07/04/19 12:00 123/61 07/04/19 11:45 67 16 122/60 (80) 95 07/04/19 11:30 65 16 119/54 (75) 96 07/04/19 11:15 79/41 07/04/19 11:15 59 16 79/41 (54) 98 07/04/19 11:00 60 16 83/46 (58) 98 07/04/19 10:35 71 17 99 Mechanical Ventilator 30 07/04/19 10:34 71 17 30 07/04/19 10:30 66 16 127/65 (85) 100 07/04/19 10:00 70 16 93/48 (63) 100 07/04/19 09:30 71 16 151/76 (101) 100 07/04/19 09:00 152/76 07/04/19 09:00 77 17 152/76 (101) 100 07/04/19 08:46 77 17 30 07/04/19 08:30 77 17 161/86 (111) 99 07/04/19 08:00 142/73 07/04/19 08:00 69 16 142/73 (96) 100 07/04/19 08:00 Mechanical Ventilator 07/04/19 08:00 30 07/04/19 08:00 66 07/04/19 07:30 97.1 67 16 146/85 (105) 98 07/04/19 07:10 58 16 30 07/04/19 07:00 89/50 07/04/19 06:45 51 16 83/43 (56) 100 07/04/19 06:30 52 16 91/48 (62) 100 07/04/19 06:15 55 16 117/52 (73) 100 07/04/19 06:00 117/52 07/04/19 06:00 50 16 96/52 (67) 100 07/04/19 05:45 54 16 133/63 (86) 100 07/04/19 05:30 49 16 107/55 (72) 100 07/04/19 05:22 51 16 97/50 (66) 100 07/04/19 05:20 53 16 106/52 (70) 100 07/04/19 05:15 49 16 87/58 (68) 100 07/04/19 05:00 60 16 126/62 (83) 100 07/04/19 05:00 126/62 07/04/19 04:55 56 16 30 07/04/19 04:45 65 16 141/70 (93) 100 07/04/19 04:30 68 19 138/70 (92) 100 07/04/19 04:15 70 20 154/82 (106) 100 07/04/19 04:00 30 07/04/19 04:00 99.4 67 17 155/71 (99) 99 07/04/19 04:00 137/75 07/04/19 04:00 Mechanical Ventilator 07/04/19 04:00 56 07/04/19 03:45 69 21 146/71 (96) 99 07/04/19 03:30 66 15 136/65 (88) 100 07/04/19 03:15 65 16 155/73 (100) 100 07/04/19 03:05 52 16 30 07/04/19 03:00 148/56 07/04/19 03:00 63 17 142/65 (90) 100 07/04/19 02:45 60 16 144/63 (90) 100 07/04/19 02:30 59 15 141/59 (86) 100 07/04/19 02:15 58 16 133/65 (87) 100 07/04/19 02:00 54 15 128/55 (79) 100 07/04/19 02:00 128/55 07/04/19 01:45 50 16 92/45 (61) 99 07/04/19 01:41 49 16 86/41 (56) 100 07/04/19 01:30 54 16 98/49 (65) 100 07/04/19 01:15 51 16 114/63 (80) 100 07/04/19 01:14 51 16 30 07/04/19 01:00 56 17 132/58 (82) 100 07/04/19 01:00 98/49 07/04/19 00:45 60 15 149/71 (97) 100 07/04/19 00:30 52 16 118/58 (78) 100 07/04/19 00:15 59 16 149/68 (95) 100 07/04/19 00:00 Mechanical Ventilator 07/04/19 00:00 149/68 07/04/19 00:00 99.3 59 16 149/66 (93) 100 07/04/19 00:00 58 07/04/19 00:00 30 07/03/19 23:45 58 16 148/68 (94) 100 07/03/19 23:30 60 16 150/75 (100) 100 07/03/19 23:15 53 16 133/70 (91) 100 07/03/19 23:03 68 16 30 07/03/19 23:00 53 16 123/56 (78) 99 07/03/19 23:00 123/56 07/03/19 22:45 59 18 151/63 (92) 100 07/03/19 22:30 50 16 138/76 (96) 99 07/03/19 22:15 60 18 151/69 (96) 100 07/03/19 22:00 155/78 07/03/19 22:00 66 17 155/74 (101) 100 07/03/19 21:45 68 17 162/76 (104) 100 07/03/19 21:30 71 19 152/65 (94) 100 07/03/19 21:15 71 20 153/69 (97) 100 07/03/19 21:08 72 18 30 07/03/19 21:03 153/69 07/03/19 21:00 71 17 141/65 (90) 100 07/03/19 20:45 98.9 71 19 131/59 (83) 100 07/03/19 20:30 73 18 134/69 (90) 100 07/03/19 20:15 73 17 131/72 (91) 100 07/03/19 20:00 35 07/03/19 20:00 Mechanical Ventilator 07/03/19 20:00 75 07/03/19 20:00 75 17 134/82 (99) 100 07/03/19 19:45 68 17 111/60 (77) 100 07/03/19 19:30 133/60 07/03/19 19:30 71 18 118/53 (74) 100 07/03/19 19:15 72 20 118/57 (77) 100 07/03/19 19:00 133/60 07/03/19 19:00 71 17 133/60 (84) 100 07/03/19 18:56 72 16 30 07/03/19 18:30 70 18 125/53 (77) 100 07/03/19 18:00 72 17 123/60 (81) 100 07/03/19 18:00 123/60 07/03/19 17:30 71 19 127/57 (80) 100 07/03/19 17:01 67 16 35 07/03/19 17:00 124/64 07/03/19 17:00 99.6 68 17 124/62 (82) 100 07/03/19 16:40 99.8 65 16 101/49 (66) 99 07/03/19 16:30 66 16 103/54 (70) 99 I&O Intake and Output 07/03/19 07/04/19 18:59 06:59 Intake Total 1461.00 ml 1487.97 ml Output Total 1260 ml 830 ml Balance 201.00 ml 657.97 ml Intake Free Water 70 ml IV Total 921.00 ml 757.97 ml Tube Feeding 450 ml 660 ml Other 90 ml Output Urine Total 1260 ml 830 ml # Bowel Movements 1 Dressing: saturated Wound: other Drains: other Cardiovascular: RSR Respiratory: decreased breath sounds Abdomen: soft, non-tender, present bowel sounds, non-distended Extremities: no cyanosis, other Laboratory Tests Test 07/04/19 04:00 White Blood Count 9.1 K/UL (4.8-10.8) Red Blood Count 3.44 M/UL (4.70-6.10) L Hemoglobin 9.6 G/DL (14.2-18.0) L Hematocrit 29.9 % (42.0-52.0) L Mean Corpuscular Volume 87 FL (80-99) Mean Corpuscular Hemoglobin 28.0 PG (27.0-31.0) Mean Corpuscular Hemoglobin Concent 32.2 G/DL (32.0-36.0) Red Cell Distribution Width 15.3 % (11.6-14.8) H Platelet Count 330 K/UL (150-450) Mean Platelet Volume 7.5 FL (6.5-10.1) Neutrophils (%) (Auto) 59.0 % (45.0-75.0) Lymphocytes (%) (Auto) 20.6 % (20.0-45.0) Monocytes (%) (Auto) 12.0 % (1.0-10.0) H Eosinophils (%) (Auto) 7.0 % (0.0-3.0) H Basophils (%) (Auto) 1.5 % (0.0-2.0) Sodium Level 141 MMOL/L (136-145) Potassium Level 4.4 MMOL/L (3.5-5.1) Chloride Level 109 MMOL/L (98-107) H Carbon Dioxide Level 24 MMOL/L (21-32) Anion Gap 8 mmol/L (5-15) Blood Urea Nitrogen 22 mg/dL (7-18) H Creatinine 1.2 MG/DL (0.55-1.30) Estimat Glomerular Filtration Rate 59.9 mL/min (>60) Glucose Level 135 MG/DL (74-106) H Calcium Level 8.1 MG/DL (8.5-10.1) L Phosphorus Level 2.4 MG/DL (2.5-4.9) L Magnesium Level 1.7 MG/DL (1.8-2.4) L Total Bilirubin 0.4 MG/DL (0.2-1.0) Aspartate Amino Transf (AST/SGOT) 14 U/L (15-37) L Alanine Aminotransferase (ALT/SGPT) 19 U/L (12-78) Alkaline Phosphatase 203 U/L (46-116) H Total Protein 6.4 G/DL (6.4-8.2) Albumin 2.2 G/DL (3.4-5.0) L Globulin 4.2 g/dL Albumin/Globulin Ratio 0.5 (1.0-2.7) L Plan Problems: (1) Severe protein-calorie malnutrition Assessment & Plan: DAILY ESTIMATED NEEDS: Needs based on Critical care, underweight TF VACUUM CASTER 56.8 30-35 kcals/kg 4502-0572 total kcals 1.25-2 g protein/kg 71-113.6 g total protein 25-30 mL/kg 2409-4546 total fluid mLs NUTRITION DIAGNOSIS: * Increased kcal/prot intake needs R/T sepsis and underweight status as evidenced by pt adm w/ critically elev WBC (35.7*), febrile, @68% [place] Body Weight. * Swallowing difficulty R/T respiratory status as evidenced by pt vent dep via trach, PEG dep. ENTERAL NUTRITION RECOMMENDATIONS: Nepro @45mL/hr x 22hr to provide 990mL, 1782kcal, 80g pro, 720mL free water -When Hemodynamically stable, start Nepro @ 15mL/hr for 6 hrs. -Advance as tolerated 10mL q 4-6 hrs to goal. -TF @goal meets 100% est needs. -Flush per MD/ HOB >30 degrees. ADDITIONAL RECOMMENDATIONS: * Calibrated bedscale weight for accurate CBW + weekly wt monitoring * Per SNF: Ht of 6'1", Wt 125# (05/2019) * TF recs as above when medically stable * Monitor for cont'd need of renal formula (K 5.5) * Monitor lytes and hydration status. (2) Feeding by G-tube Assessment & Plan: g tube changed (3) Respiratory failure, [id number] (4) Septic shock Assessment & Plan: Acute decline with hypertension tachycardia now on pressors Labs as above Detailed examination done and abdominal distention noted. kub okay cxr noted exam stable will follow with recs thank you (5) Severe sepsis (6) GT SITE LEAKING Assessment & Plan: Patient identified worsening G-tube site leakage and cellulitis. This has been noted on prior admissions which is cared for. Plan for placement as below Pt presents with contractures. Skin erosions to abdominal region, and multiple areas of non-blanching erythema. Skin erosion noted to abdomen extending around GT and mostly to L abdominal area, skin is grossly red and excoriated. Furuncle noted to L flank oozing moderate amt purulent exudate. Non-blanchable erythema without fluctuance noted to L lateral malleolus (L) 1.5cm x (W)3cm. Non-blanchable erythema without fluctuance noted to lateral L foot (L)1cm x (W) 1cm. Non-blanchable erythema noted to sacral cleft. No other skin concerns noted. Tx.Plan: Apply Zinc Oxide Paste to GT site and excoriated areas on abd daily and prn. Apply Betadine to Boil L flank Daily .Cover with Optifoam drsg. Change daily and prn. Apply Moisture Barrier Paste to sacrum. Cover with Optifoam drsg. Change every 3 days and prn. Apply Cavilon to Non-blanchable areas L foot and bilat heels. Cover each site with Optifoam drsg. Change every 7 days and prn. Reposition at least every 2hours or as tolerated. Place pillow between knees. Off-load heels with pillow. APM/RENO Mattress overlay. Additional Comments AM KUB and CXR ordered will follow with recs Quirino Bernard Jul 04, 2019 16:22
[2019-07-04] MEDS: Amikacin 500 MG in NS 110 ML IV SCH (16:30)
--- NOTE | 2019-07-04 19:30 | NUR ---
NURSE NOTES: Patient received from Brandan RN. Patient is obtunded, he opens eyes spontaneously and to painful stimulus. Patient is ventilator dependant with portex 8, AC 16, 600tv, 30% FiO2 and no peep. Patient is contracted at upper and lower extremities. No free independent movement from patient. Gt noted and running Osmolite 1.5 at 55ml/hr. minimal residual of 30ml. Patient does have minor rashes around skin. Patient has an ALEXI PICC infusing D5Ns at 50ml/hr. Patient [id number], SCD's are on, side rails are padded. gag reflex noted upon suctioning. minimal secretions. Ventilator inspected, suctioned inspected, all safety measures are in place. Will continue to monitor
--- NOTE | 2019-07-04 19:49 | NUR ---
HAND-OFF: Report given to ODILIA Carrington. patient remains off levophed since 1414. remains on ttube feeding at 55ml/hr.
--- NOTE | 2019-07-04 20:06 | Cardiology Progress Note ---
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 now off pressor Subjective ROS Limited/Unobtainable: Yes Objective Last 24 Hour Vital Signs Date Time Temp Pulse Resp B/P (MAP) Pulse Ox O2 Delivery O2 Flow Rate FiO2 07/04/19 19:00 78 16 128/56 (80) 98 07/04/19 18:55 72 18 30 07/04/19 18:30 71 17 125/56 (79) 98 07/04/19 18:00 70 18 136/60 (85) 98 07/04/19 17:30 70 18 126/59 (81) 98 07/04/19 17:00 71 15 136/59 (84) 98 07/04/19 16:56 71 19 30 07/04/19 16:30 68 16 125/86 (99) 97 07/04/19 16:00 Mechanical Ventilator 07/04/19 16:00 30 07/04/19 16:00 97.6 63 16 113/52 (72) 99 07/04/19 16:00 69 07/04/19 15:30 69 16 119/65 (83) 98 07/04/19 15:00 70 18 122/58 (79) 100 07/04/19 14:30 75 19 148/66 (93) 96 07/04/19 14:30 67 16 30 07/04/19 14:15 130/67 07/04/19 14:00 69 17 142/66 (91) 96 07/04/19 14:00 142/66 07/04/19 13:30 63 17 86/43 (57) 98 07/04/19 13:00 67 16 124/91 (102) 98 07/04/19 13:00 124/91 07/04/19 12:49 68 16 30 07/04/19 12:30 67 16 123/61 (81) 94 07/04/19 12:00 Mechanical Ventilator 07/04/19 12:00 62 07/04/19 12:00 97.8 64 16 100/50 (67) 98 07/04/19 12:00 30 07/04/19 12:00 123/61 07/04/19 11:45 67 16 122/60 (80) 95 07/04/19 11:30 65 16 119/54 (75) 96 07/04/19 11:15 79/41 07/04/19 11:15 59 16 79/41 (54) 98 07/04/19 11:00 60 16 83/46 (58) 98 07/04/19 10:35 71 17 99 Mechanical Ventilator 30 07/04/19 10:34 71 17 30 07/04/19 10:30 66 16 127/65 (85) 100 07/04/19 10:00 70 16 93/48 (63) 100 07/04/19 09:30 71 16 151/76 (101) 100 07/04/19 09:00 152/76 07/04/19 09:00 77 17 152/76 (101) 100 07/04/19 08:46 77 17 30 07/04/19 08:30 77 17 161/86 (111) 99 07/04/19 08:00 142/73 07/04/19 08:00 69 16 142/73 (96) 100 07/04/19 08:00 Mechanical Ventilator 07/04/19 08:00 30 07/04/19 08:00 66 07/04/19 07:30 97.1 67 16 146/85 (105) 98 07/04/19 07:10 58 16 30 07/04/19 07:00 89/50 07/04/19 06:45 51 16 83/43 (56) 100 07/04/19 06:30 52 16 91/48 (62) 100 07/04/19 06:15 55 16 117/52 (73) 100 07/04/19 06:00 117/52 07/04/19 06:00 50 16 96/52 (67) 100 07/04/19 05:45 54 16 133/63 (86) 100 07/04/19 05:30 49 16 107/55 (72) 100 07/04/19 05:22 51 16 97/50 (66) 100 07/04/19 05:20 53 16 106/52 (70) 100 07/04/19 05:15 49 16 87/58 (68) 100 07/04/19 05:00 60 16 126/62 (83) 100 07/04/19 05:00 126/62 07/04/19 04:55 56 16 30 07/04/19 04:45 65 16 141/70 (93) 100 07/04/19 04:30 68 19 138/70 (92) 100 07/04/19 04:15 70 20 154/82 (106) 100 07/04/19 04:00 30 07/04/19 04:00 99.4 67 17 155/71 (99) 99 07/04/19 04:00 137/75 07/04/19 04:00 Mechanical Ventilator 07/04/19 04:00 56 07/04/19 03:45 69 21 146/71 (96) 99 07/04/19 03:30 66 15 136/65 (88) 100 07/04/19 03:15 65 16 155/73 (100) 100 07/04/19 03:05 52 16 30 07/04/19 03:00 148/56 07/04/19 03:00 63 17 142/65 (90) 100 07/04/19 02:45 60 16 144/63 (90) 100 07/04/19 02:30 59 15 141/59 (86) 100 07/04/19 02:15 58 16 133/65 (87) 100 07/04/19 02:00 54 15 128/55 (79) 100 07/04/19 02:00 128/55 07/04/19 01:45 50 16 92/45 (61) 99 07/04/19 01:41 49 16 86/41 (56) 100 07/04/19 01:30 54 16 98/49 (65) 100 07/04/19 01:15 51 16 114/63 (80) 100 07/04/19 01:14 51 16 30 07/04/19 01:00 56 17 132/58 (82) 100 07/04/19 01:00 98/49 07/04/19 00:45 60 15 149/71 (97) 100 07/04/19 00:30 52 16 118/58 (78) 100 07/04/19 00:15 59 16 149/68 (95) 100 07/04/19 00:00 Mechanical Ventilator 07/04/19 00:00 149/68 07/04/19 00:00 99.3 59 16 149/66 (93) 100 07/04/19 00:00 58 07/04/19 00:00 30 07/03/19 23:45 58 16 148/68 (94) 100 07/03/19 23:30 60 16 150/75 (100) 100 07/03/19 23:15 53 16 133/70 (91) 100 07/03/19 23:03 68 16 30 07/03/19 23:00 53 16 123/56 (78) 99 07/03/19 23:00 123/56 07/03/19 22:45 59 18 151/63 (92) 100 07/03/19 22:30 50 16 138/76 (96) 99 07/03/19 22:15 60 18 151/69 (96) 100 07/03/19 22:00 155/78 07/03/19 22:00 66 17 155/74 (101) 100 07/03/19 21:45 68 17 162/76 (104) 100 07/03/19 21:30 71 19 152/65 (94) 100 07/03/19 21:15 71 20 153/69 (97) 100 07/03/19 21:08 72 18 30 07/03/19 21:03 153/69 07/03/19 21:00 71 17 141/65 (90) 100 07/03/19 20:45 98.9 71 19 131/59 (83) 100 07/03/19 20:30 73 18 134/69 (90) 100 07/03/19 20:15 73 17 131/72 (91) 100 General Appearance: on vent, patient on isolation Intake and Output 07/03/19 07/04/19 18:59 06:59 Intake Total 1461.00 ml 1487.97 ml Output Total 1260 ml 830 ml Balance 201.00 ml 657.97 ml Intake Free Water 70 ml IV Total 921.00 ml 757.97 ml Tube Feeding 450 ml 660 ml Other 90 ml Output Urine Total 1260 ml 830 ml # Bowel Movements 1 Laboratory Tests Test 07/04/19 04:00 White Blood Count 9.1 K/UL (4.8-10.8) Red Blood Count 3.44 M/UL (4.70-6.10) L Hemoglobin 9.6 G/DL (14.2-18.0) L Hematocrit 29.9 % (42.0-52.0) L Mean Corpuscular Volume 87 FL (80-99) Mean Corpuscular Hemoglobin 28.0 PG (27.0-31.0) Mean Corpuscular Hemoglobin Concent 32.2 G/DL (32.0-36.0) Red Cell Distribution Width 15.3 % (11.6-14.8) H Platelet Count 330 K/UL (150-450) Mean Platelet Volume 7.5 FL (6.5-10.1) Neutrophils (%) (Auto) 59.0 % (45.0-75.0) Lymphocytes (%) (Auto) 20.6 % (20.0-45.0) Monocytes (%) (Auto) 12.0 % (1.0-10.0) H Eosinophils (%) (Auto) 7.0 % (0.0-3.0) H Basophils (%) (Auto) 1.5 % (0.0-2.0) Sodium Level 141 MMOL/L (136-145) Potassium Level 4.4 MMOL/L (3.5-5.1) Chloride Level 109 MMOL/L (98-107) H Carbon Dioxide Level 24 MMOL/L (21-32) Anion Gap 8 mmol/L (5-15) Blood Urea Nitrogen 22 mg/dL (7-18) H Creatinine 1.2 MG/DL (0.55-1.30) Estimat Glomerular Filtration Rate 59.9 mL/min (>60) Glucose Level 135 MG/DL (74-106) H Calcium Level 8.1 MG/DL (8.5-10.1) L Phosphorus Level 2.4 MG/DL (2.5-4.9) L Magnesium Level 1.7 MG/DL (1.8-2.4) L Total Bilirubin 0.4 MG/DL (0.2-1.0) Aspartate Amino Transf (AST/SGOT) 14 U/L (15-37) L Alanine Aminotransferase (ALT/SGPT) 19 U/L (12-78) Alkaline Phosphatase 203 U/L (46-116) H Total Protein 6.4 G/DL (6.4-8.2) Albumin 2.2 G/DL (3.4-5.0) L Globulin 4.2 g/dL Albumin/Globulin Ratio 0.5 (1.0-2.7) L Javier Ponce MD Jul 04, 2019 20:06
--- NOTE | 2019-07-04 20:30 | NUR ---
NURSE NOTES: Repositioned patient and provided oral suctioning and oral care. Levophed remains off at this time. Will monitor BP closely.
[2019-07-04] MEDS: Dyna-Hex 2% Top Sol 2oz TOPIC SCH (21:10)
--- NOTE | 2019-07-04 21:11 | NUR ---
NURSE NOTES: Lenny X 2 packets given.
[2019-07-04] MEDS: Zinc Oxide Oint 2oz TOPIC SCH (21:17)
--- NOTE | 2019-07-04 22:00 | NUR ---
NURSE NOTES: Repositioned patient and provided oral care. Deep suctioning provided. NAD, Vitals remains stable. Pressors remains off.
[2019-07-05] VITALS (22 sets, daily range): BP systolic 86–150; BP diastolic 40–79
--- NOTE | 2019-07-05 | NUR ---
NURSE NOTES: Patient had diarrhea, brown liquid. Patient cleaned and repositioned. Patient Oral care given, pressors remain off, no acute distress at this time.Blood pressure maintaining within normal limits
--- NOTE | 2019-07-05 02:00 | NUR ---
NURSE NOTES: Repositioned patient and given oral care. BP still remains stable. Afebrile at this time. NSR on the monitor. feeds ongoing, no residual.
--- NOTE | 2019-07-05 04:00 | NUR ---
NURSE NOTES: Another episode of liquid diarrhea. Rectal tube inserted Patient cleaned and new dressings applied. BP still remains stable, afebrile at this time. Maintenance fluids ongoing, central line dressing changed.
--- NOTE | 2019-07-05 05:00 | NUR ---
NURSE NOTES: FEEDS Hold for morning meds.
[2019-07-05] MEDS: Midodrine 10mg tab GT SCH ×3 (05:35→20:35)
[2019-07-05] MEDS: Sucralfate 1gm tab GT SCH ×3 (05:35→20:36)
[2019-07-05] MEDS: PHENobarbital Elixir 30mg/7.5ml NG SCH ×3 (05:36→20:35)
[2019-07-05 05:45] LABS: BASOPHILS % (AUTO) 1.3 % (0.0-2.0); EOSINOPHILS % (AUTO) 6.1 % (0.0-3.0); HEMOGLOBIN 9.2 G/DL (14.2-18.0); LYMPHOCYTES % (AUTO) 17.3 % (20.0-45.0); MEAN CORPUSCULAR VOLUME 87 FL (80-99); MONOCYTES % (AUTO) 10.3 % (1.0-10.0); PLATELET COUNT 328 K/UL (150-450); RED BLOOD COUNT 3.33 M/UL (4.70-6.10); RED CELL DISTRIBUTION WIDTH 15.1 % (11.6-14.8)
--- NOTE | 2019-07-05 06:00 | NUR ---
NURSE NOTES: Repositioned and oral hygrine given. Deep suction provided. Feeds remains on hold. Blood pressure is and and no fever. Rectal tube remains in place with no leaks.
[2019-07-05 06:01] LABS: ALANINE AMINOTRANSFERASE 16 U/L (12-78); ALBUMIN/GLOBULIN RATIO 0.5 (1.0-2.7); ALKALINE PHOSPHATASE 200 U/L (46-116); ANION GAP 7 mmol/L (5-15); ASPARTATE AMINO TRANSFERASE 14 U/L (15-37); BILIRUBIN,TOTAL 0.2 MG/DL (0.2-1.0); BLOOD UREA NITROGEN 37 mg/dL (7-18); CARBON DIOXIDE 24 MMOL/L (21-32); CHLORIDE 110 MMOL/L (98-107); CREATININE 1.1 MG/DL (0.55-1.30); POTASSIUM 4.8 MMOL/L (3.5-5.1); SODIUM 141 MMOL/L (136-145)
[2019-07-05 06:28] LABS: PHOSPHORUS 3.5 MG/DL (2.5-4.9)
--- NOTE | 2019-07-05 07:25 | NUR ---
NURSE NOTES: Received report from ODILIA Carrington. Patient obtunded. Portex 8 with vent setting AC 16, VT 600 and FiO2 35%. SR on the monitor. Gtube intact and running with osmolite 1.5 55ml/hr. Rectal tube intact and draining with brown liquid stool. Victor intact and draining with yellow color urine. Left upper arm PICC intact, clean and running with D5NS 50ml/hr. Call light placed in easy reach. Kept dry, clean, comfortable and HOB>30. Will continue plan of care.
--- NOTE | 2019-07-05 07:28 | NUR ---
HAND-OFF: Report given to Daisy Palm RN.
--- NOTE | 2019-07-05 08:10 | NUR ---
NURSE NOTES: Repositioned patient and oral care provided.
[2019-07-05] MEDS: levETIRAcetam 1,000mg/NS100ml 100 ML IVPB SCH (08:26)
[2019-07-05] MEDS: Phenytoin 200 MG in NS 55 ML IVPB SCH (09:09)
--- NOTE | 2019-07-05 09:17 | General Progress Note ---
Assessment/Plan Problem List: (1) skilled nursing resident ICD Codes: Z59.3 - Problems related to living in residential institution SNOMED: 787248303 (2) GT SITE LEAKING (3) Alzheimer's dementia ICD Codes: G30.9 - Alzheimer's disease, unspecified SNOMED: 77791887 (4) Upper GI bleed ICD Codes: K92.2 - Upper gastrointestinal hemorrhage SNOMED: 36735790 (5) Severe erosive esophagitis (6) Malfunction of gastrostomy tube ICD Codes: K94.23 - Gastrostomy malfunction SNOMED: 385998045 (7) Chronic respiratory failure ICD Codes: J96.10 - Chronic respiratory failure, unspecified whether with hypoxia or hypercapnia SNOMED: 42856903 (8) Anemia ICD Codes: D64.9 - Anemia, unspecified SNOMED: 926255355 Status: unchanged Assessment/Plan: stable H&H s/p one unit PRBC yesterday dietitian in put appreciated no obvious GIB per nurses ppi GTF abx per ID ICU care Subjective ROS Limited/Unobtainable: No Allergies: Coded Allergies: NO KNOWN DRUG ALLERGIES (Verified Allergy, Unknown, 09/11/16) Subjective only on low rate pressor GTF running Objective Last 24 Hour Vital Signs Date Time Temp Pulse Resp B/P (MAP) Pulse Ox O2 Delivery O2 Flow Rate FiO2 07/05/19 07:00 72 18 127/57 (80) 100 07/05/19 06:45 70 16 35 07/05/19 06:00 70 16 137/59 (85) 97 07/05/19 05:03 65 16 35 07/05/19 05:00 66 16 129/70 (89) 96 07/05/19 04:00 Mechanical Ventilator 07/05/19 04:00 67 07/05/19 04:00 35 07/05/19 04:00 99.6 59 16 100/51 (67) 100 07/05/19 03:00 68 16 114/53 (73) 100 07/05/19 02:43 69 17 30 07/05/19 02:00 70 17 129/70 (89) 99 07/05/19 01:00 69 20 134/67 (89) 98 07/05/19 00:49 68 21 30 07/05/19 00:30 66 17 89/45 (60) 98 07/05/19 00:00 30 07/05/19 00:00 68 18 105/51 (69) 98 07/05/19 00:00 72 07/05/19 00:00 Mechanical Ventilator 07/04/19 23:00 67 17 139/65 (89) 98 07/04/19 22:31 70 16 30 07/04/19 22:00 71 19 132/75 (94) 97 07/04/19 21:29 71 18 30 07/04/19 21:11 128/56 07/04/19 21:00 70 17 110/60 (77) 98 07/04/19 20:00 Mechanical Ventilator 07/04/19 20:00 30 07/04/19 20:00 68 07/04/19 20:00 98.1 72 18 123/56 (78) 98 07/04/19 19:00 78 16 128/56 (80) 98 07/04/19 18:55 72 18 30 07/04/19 18:30 71 17 125/56 (79) 98 07/04/19 18:00 70 18 136/60 (85) 98 07/04/19 17:30 70 18 126/59 (81) 98 07/04/19 17:00 71 15 136/59 (84) 98 07/04/19 16:56 71 19 30 07/04/19 16:30 68 16 125/86 (99) 97 07/04/19 16:00 Mechanical Ventilator 07/04/19 16:00 30 07/04/19 16:00 97.6 63 16 113/52 (72) 99 07/04/19 16:00 69 07/04/19 15:30 69 16 119/65 (83) 98 07/04/19 15:00 70 18 122/58 (79) 100 07/04/19 14:30 75 19 148/66 (93) 96 07/04/19 14:30 67 16 30 07/04/19 14:15 130/67 07/04/19 14:00 69 17 142/66 (91) 96 07/04/19 14:00 142/66 07/04/19 13:30 63 17 86/43 (57) 98 07/04/19 13:00 67 16 124/91 (102) 98 07/04/19 13:00 124/91 07/04/19 12:49 68 16 30 10/25/19 12:30 67 16 123/61 (81) 94 07/04/19 12:00 Mechanical Ventilator 07/04/19 12:00 62 07/04/19 12:00 97.8 64 16 100/50 (67) 98 07/04/19 12:00 30 07/04/19 12:00 123/61 07/04/19 11:45 67 16 122/60 (80) 95 07/04/19 11:30 65 16 119/54 (75) 96 07/04/19 11:15 79/41 07/04/19 11:15 59 16 79/41 (54) 98 07/04/19 11:00 60 16 83/46 (58) 98 07/04/19 10:35 71 17 99 Mechanical Ventilator 30 07/04/19 10:34 71 17 30 07/04/19 10:30 66 16 127/65 (85) 100 07/04/19 10:00 70 16 93/48 (63) 100 07/04/19 09:30 71 16 151/76 (101) 100 Intake and Output 07/04/19 07/05/19 19:00 07:00 Intake Total 2235.368 ml 1379 ml Output Total 725 ml 790 ml Balance 1510.368 ml 589 ml Intake Free Water 350 ml 175 ml IV Total 1175.368 ml 709 ml Tube Feeding 680 ml 495 ml Other 30 ml Output Urine Total 725 ml 690 ml Stool Total 100 ml # Bowel Movements 1 Laboratory Tests 07/05/19 04:00: White Blood Count 9.0, Red Blood Count 3.33L, Hemoglobin 9.2L, Hematocrit 29.0L , Mean Corpuscular Volume 87, Mean Corpuscular Hemoglobin 27.7, Mean Corpuscular Hemoglobin Concent 31.9L, Red Cell Distribution Width 15.1H, Platelet Count 328, Mean Platelet Volume 7.9, Neutrophils (%) (Auto) 65.0, Lymphocytes (%) (Auto) 17.3L, Monocytes (%) (Auto) 10.3H, Eosinophils (%) (Auto ) 6.1H, Basophils (%) (Auto) 1.3, Sodium Level 141, Potassium Level 4.8, Chloride Level 110H, Carbon Dioxide Level 24, Anion Gap 7, Blood Urea Nitrogen 37H, Creatinine 1.1, Estimat Glomerular Filtration Rate > 60, Glucose Level 97, Calcium Level 8.0L, Phosphorus Level 3.5, Magnesium Level 2.1, Total Bilirubin 0.2, Aspartate Amino Transf (AST/SGOT) 14L, Alanine Aminotransferase (ALT/SGPT) 16, Alkaline Phosphatase 200H, Total Protein 6.2L, Albumin 2.0L, Globulin 4.2, Albumin/Globulin Ratio 0.5L Height (Feet): 5 Height (Inches): 8.00 Weight (Pounds): 151 General Appearance: alert EENT: normal ENT inspection Neck: supple Cardiovascular: normal rate Respiratory/Chest: decreased breath sounds Abdomen: normal bowel sounds, non tender, soft Extremities: non-tender Vitaliy Wilson MD Jul 05, 2019 09:17
--- NOTE | 2019-07-05 09:30 | Pulmonolgy Critical Care Note ---
Critical Care - Asmt/Plan Assessment/Plan: ASSESSMENT Sepsis Septic shock, likely secondary to UTI and pneumonia UTI/pyelonephritis with Proteus and Providencia Pneumonia with pseudomonas and Proteus Acute on chronic respiratory failure VDRF/tracheostomy status Dysphagia, feeding by G-tube G tube leaking with cellulitis, s/p replacement at bedside Status epilepticus Severe encephalopathy with persistent vegetative state Mobitz 1 2nd degree AV block - no recurrence Anemia of chronic disease GI bleeding s/p EGD ( distal esoph stricture requiring dilatation, gastritis, ? healing gastric ulcer) s/p colonoscopy ( diverticulosis, internal hemorrhoids) Electrolyte imbalance KAYLENE Hypothyroidism with elevated TSH Thrombocytopenia improving Severe protein calorie malnutrition PLAN OF CARE ICU off pressors Vent support, pulmonary toilet Follow-up with CXR and ABG Abx as per ID Echo with EF 55-60% BP support with midodrine no recurrence of AV block, HR stable, cardio on board dc IVF monitor renal parameters, lytes , correct lytes as needed; nephro on board initially RIJ CL, dc and PICC line placed increase free water via G tube seizure precautions anticonvulsants( Keppra, Dilantin, Phenobarbital) as per neuro and Ativan PRN , monitor levels - perr neuro EEG noted, severe encephalopathy aspiration precaution , G-tube feeding G tube site care wound cx G tube site colonizer s/p replacement of G tube at bedside GI on board PPI and Carafate Protein supplement as per RD recommendation s/p EGD and colonoscopy stool OB + Monitor H&H with goal to keep Hgb above 7 , s/p transfusion Monitor PLT count , resolved Elevated TSH initially, Levothyroxine dose increased , fup with TSH BS stable, [id number] supportive care case discussed and evaluated by supervising physician Critical Care - Objective Last 24 Hour Vital Signs Date Time Temp Pulse Resp B/P (MAP) Pulse Ox O2 Delivery O2 Flow Rate FiO2 07/05/19 07:00 72 18 127/57 (80) 100 07/05/19 06:45 70 16 35 07/05/19 06:00 70 16 137/59 (85) 97 07/05/19 05:03 65 16 35 07/05/19 05:00 66 16 129/70 (89) 96 07/05/19 04:00 Mechanical Ventilator 07/05/19 04:00 67 07/05/19 04:00 35 07/05/19 04:00 99.6 59 16 100/51 (67) 100 07/05/19 03:00 68 16 114/53 (73) 100 07/05/19 02:43 69 17 30 07/05/19 02:00 70 17 129/70 (89) 99 07/05/19 01:00 69 20 134/67 (89) 98 07/05/19 00:49 68 21 30 07/05/19 00:30 66 17 89/45 (60) 98 07/05/19 00:00 30 07/05/19 00:00 68 18 105/51 (69) 98 07/05/19 00:00 72 07/05/19 00:00 Mechanical Ventilator 07/04/19 23:00 67 17 139/65 (89) 98 07/04/19 22:31 70 16 30 07/04/19 22:00 71 19 132/75 (94) 97 07/04/19 21:29 71 18 30 07/04/19 21:11 128/56 07/04/19 21:00 70 17 110/60 (77) 98 07/04/19 20:00 Mechanical Ventilator 07/04/19 20:00 30 07/04/19 20:00 68 07/04/19 20:00 98.1 72 18 123/56 (78) 98 07/04/19 19:00 78 16 128/56 (80) 98 07/04/19 18:55 72 18 30 07/04/19 18:30 71 17 125/56 (79) 98 07/04/19 18:00 70 18 136/60 (85) 98 07/04/19 17:30 70 18 126/59 (81) 98 07/04/19 17:00 71 15 136/59 (84) 98 07/04/19 16:56 71 19 30 07/04/19 16:30 68 16 125/86 (99) 97 07/04/19 16:00 Mechanical Ventilator 07/04/19 16:00 30 07/04/19 16:00 97.6 63 16 113/52 (72) 99 07/04/19 16:00 69 07/04/19 15:30 69 16 119/65 (83) 98 07/04/19 15:00 70 18 122/58 (79) 100 07/04/19 14:30 75 19 148/66 (93) 96 07/04/19 14:30 67 16 30 07/04/19 14:15 130/67 07/04/19 14:00 69 17 142/66 (91) 96 07/04/19 14:00 142/66 07/04/19 13:30 63 17 86/43 (57) 98 07/04/19 13:00 67 16 124/91 (102) 98 07/04/19 13:00 124/91 07/04/19 12:49 68 16 30 07/04/19 12:30 67 16 123/61 (81) 94 07/04/19 12:00 Mechanical Ventilator 07/04/19 12:00 62 07/04/19 12:00 97.8 64 16 100/50 (67) 98 07/04/19 12:00 30 07/04/19 12:00 123/61 07/04/19 11:45 67 16 122/60 (80) 95 07/04/19 11:30 65 16 119/54 (75) 96 07/04/19 11:15 79/41 07/04/19 11:15 59 16 79/41 (54) 98 07/04/19 11:00 60 16 83/46 (58) 98 07/04/19 10:35 71 17 99 Mechanical Ventilator 30 07/04/19 10:34 71 17 30 07/04/19 10:30 66 16 127/65 (85) 100 07/04/19 10:00 70 16 93/48 (63) 100 07/04/19 09:30 71 16 151/76 (101) 100 Objective: General Appearance: in no acute distress, bedbound, on vent AC 600-16-35% , HEENT: normocephalic, atraumatic, anicteric, status post trach - Portex#8, secretions moderate amount, thick, yellow color Respiratory/Chest: bibasilar scattered crackles Cardiovascular: normal rate, regular rhythm - SR on tele , LUE PICC intact Abdomen: normal bowel sounds, soft, non tender, G tube , rectal tube with diarrhea Extremities: no edema, pedal pulses normal Neurologic/Psychiatric: abnormal gait - bedridden , Left hemiparesis , responds to tactile stimuli only Musculoskeletal: atrophy - BLE Critical Care - Subjective ROS Limited/Unobtainable: Yes Interval Events: off pressors some diff breathing diarrhea Condition: critical IV Access: PICC - LUE intact EKG Rhythm: Sinus Rhythm FI02: 35 Vent Support Breath Rate: 16 Vent Support Mode: AC Vent Tidal Volume: 600 Sputum Amount: Moderate PEEP: 0.0 PIP: 32 Fluids: D5NS at 50 Tube Feeding Amount: 55 I&O: Intake and Output 07/04/19 07/05/19 19:00 07:00 Intake Total 2235.368 ml 1379 ml Output Total 725 ml 790 ml Balance 1510.368 ml 589 ml Intake Free Water 350 ml 175 ml IV Total 1175.368 ml 709 ml Tube Feeding 680 ml 495 ml Other 30 ml Output Urine Total 725 ml 690 ml Stool Total 100 ml # Bowel Movements 1 CXR: last CXR 07/02. Interstitial edema with moderate bilateral layering pleural effusions, grossly unchanged. 2. Bibasilar airspace opacities which likely represent combination of pleural fluid and atelectasis, but pneumonia should be excluded clinically. Amina Garcia NP Jul 05, 2019 09:30
--- NOTE | 2019-07-05 09:39 | Diagnostic Imaging Report ---
EXAM: XR Chest, 1 View CLINICAL HISTORY: F U TECHNIQUE: Frontal view of the chest. COMPARISON: Chest x-ray dated 07 02 19 FINDINGS: Lungs: Pulmonary vascular congestion. Subsegmental atelectasis versus infiltrates in the lateral lung bases. Pleural space: No significant change in bilateral moderate layering pleural effusions. Heart: Unremarkable. No cardiomegaly. Mediastinum: Unremarkable. Bones joints: Unremarkable. Vasculature: Atherosclerotic calcifications are noted within the aortic arch. Tubes, lines and devices: Telemetry leads overlie the thorax. Stable positioning of a tracheostomy tube. IMPRESSION: 1. No significant change in bilateral moderate layering pleural effusions or pulmonary vascular congestion. 2. Subsegmental atelectasis versus infiltrates in the lateral lung bases, also not significantly changed.
--- NOTE | 2019-07-05 09:55 | Diagnostic Imaging Report ---
EXAM: XR Abdomen, 1 View CLINICAL HISTORY: ABD DIST TECHNIQUE: Frontal view of the abdomen pelvis. COMPARISON: Abdominal x-ray dated 07 01 19 FINDINGS: Lower thorax: Lung bases appear clear. Intraperitoneal space: No free air. Gastrointestinal tract: Nonspecific mild gaseous distention of small bowel loops. Bowel gas obscures the renal shadows. Bones joints: Moderate to severe degenerative changes in bilateral hip joints. IMPRESSION: Mild gaseous distention of small bowel loops, nonspecific. Otherwise unremarkable bowel gas pattern.
--- NOTE | 2019-07-05 10:30 | Nephrology Progress Note ---
Assessment/Plan Problem List: (1) Septic shock (2) Hypothyroidism (3) Upper GI bleed (4) Respiratory failure, [id number] (5) Anemia Assessment Sepsis Shock on pressors GI Bleed Low Na and high K UTI HypoThyroidism Tracheostomy dependence Respiratory failure, wshhj-ce-mbuhibl Alzheimer's Feeding by G-tube Plan today off pressors monitor dilantin and phenobarb level- med mgt for sz per neuro Albumin bolus prn as Cr rising consider transfusion as needed On Midodrine On GT feeding fluid challenge as needed adjust IV fluids transfuse as needed Monitor lytes and renal parametrs urine studies per orders Subjective ROS Limited/Unobtainable: Yes Objective Objective Last 24 Hour Vital Signs Date Time Temp Pulse Resp B/P (MAP) Pulse Ox O2 Delivery O2 Flow Rate FiO2 07/05/19 10:00 63 16 106/44 (64) 99 07/05/19 09:00 70 17 150/79 (102) 98 07/05/19 08:55 62 16 35 07/05/19 08:00 Mechanical Ventilator 07/05/19 08:00 97.2 69 16 130/58 (82) 98 07/05/19 08:00 35 07/05/19 07:00 72 18 127/57 (80) 100 07/05/19 06:45 70 16 35 07/05/19 06:00 70 16 137/59 (85) 97 07/05/19 05:03 65 16 35 07/05/19 05:00 66 16 129/70 (89) 96 07/05/19 04:00 Mechanical Ventilator 07/05/19 04:00 67 07/05/19 04:00 35 07/05/19 04:00 99.6 59 16 100/51 (67) 100 07/05/19 03:00 68 16 114/53 (73) 100 07/05/19 02:43 69 17 30 07/05/19 02:00 70 17 129/70 (89) 99 07/05/19 01:00 69 20 134/67 (89) 98 07/05/19 00:49 68 21 30 07/05/19 00:30 66 17 89/45 (60) 98 07/05/19 00:00 30 07/05/19 00:00 68 18 105/51 (69) 98 07/05/19 00:00 72 07/05/19 00:00 Mechanical Ventilator 07/04/19 23:00 67 17 139/65 (89) 98 07/04/19 22:31 70 16 30 07/04/19 22:00 71 19 132/75 (94) 97 07/04/19 21:29 71 18 30 07/04/19 21:11 128/56 07/04/19 21:00 70 17 110/60 (77) 98 07/04/19 20:00 Mechanical Ventilator 07/04/19 20:00 30 07/04/19 20:00 68 07/04/19 20:00 98.1 72 18 123/56 (78) 98 07/04/19 19:00 78 16 128/56 (80) 98 07/04/19 18:55 72 18 30 07/04/19 18:30 71 17 125/56 (79) 98 07/04/19 18:00 70 18 136/60 (85) 98 07/04/19 17:30 70 18 126/59 (81) 98 07/04/19 17:00 71 15 136/59 (84) 98 07/04/19 16:56 71 19 30 07/04/19 16:30 68 16 125/86 (99) 97 07/04/19 16:00 Mechanical Ventilator 07/04/19 16:00 30 07/04/19 16:00 97.6 63 16 113/52 (72) 99 07/04/19 16:00 69 07/04/19 15:30 69 16 119/65 (83) 98 07/04/19 15:00 70 18 122/58 (79) 100 07/04/19 14:30 75 19 148/66 (93) 96 07/04/19 14:30 67 16 30 07/04/19 14:15 130/67 07/04/19 14:00 69 17 142/66 (91) 96 07/04/19 14:00 142/66 07/04/19 13:30 63 17 86/43 (57) 98 07/04/19 13:00 67 16 124/91 (102) 98 07/04/19 13:00 124/91 07/04/19 12:49 68 16 30 07/04/19 12:30 67 16 123/61 (81) 94 07/04/19 12:00 Mechanical Ventilator 07/04/19 12:00 62 10/25/19 12:00 97.8 64 16 100/50 (67) 98 07/04/19 12:00 30 07/04/19 12:00 123/61 07/04/19 11:45 67 16 122/60 (80) 95 07/04/19 11:30 65 16 119/54 (75) 96 07/04/19 11:15 79/41 07/04/19 11:15 59 16 79/41 (54) 98 07/04/19 11:00 60 16 83/46 (58) 98 07/04/19 10:35 71 17 99 Mechanical Ventilator 30 07/04/19 10:34 71 17 30 07/04/19 10:30 66 16 127/65 (85) 100 Intake and Output 07/04/19 07/05/19 19:00 07:00 Intake Total 2235.368 ml 1379 ml Output Total 725 ml 790 ml Balance 1510.368 ml 589 ml Intake Free Water 350 ml 175 ml IV Total 1175.368 ml 709 ml Tube Feeding 680 ml 495 ml Other 30 ml Output Urine Total 725 ml 690 ml Stool Total 100 ml # Bowel Movements 1 Laboratory Tests 07/05/19 04:00: White Blood Count 9.0, Red Blood Count 3.33L, Hemoglobin 9.2L, Hematocrit 29.0L , Mean Corpuscular Volume 87, Mean Corpuscular Hemoglobin 27.7, Mean Corpuscular Hemoglobin Concent 31.9L, Red Cell Distribution Width 15.1H, Platelet Count 328, Mean Platelet Volume 7.9, Neutrophils (%) (Auto) 65.0, Lymphocytes (%) (Auto) 17.3L, Monocytes (%) (Auto) 10.3H, Eosinophils (%) (Auto ) 6.1H, Basophils (%) (Auto) 1.3, Sodium Level 141, Potassium Level 4.8, Chloride Level 110H, Carbon Dioxide Level 24, Anion Gap 7, Blood Urea Nitrogen 37H, Creatinine 1.1, Estimat Glomerular Filtration Rate > 60, Glucose Level 97, Calcium Level 8.0L, Phosphorus Level 3.5, Magnesium Level 2.1, Total Bilirubin 0.2, Aspartate Amino Transf (AST/SGOT) 14L, Alanine Aminotransferase (ALT/SGPT) 16, Alkaline Phosphatase 200H, Total Protein 6.2L, Albumin 2.0L, Globulin 4.2, Albumin/Globulin Ratio 0.5L Height (Feet): 5 Height (Inches): 8.00 Weight (Pounds): 151 General Appearance: no apparent distress Neck: other - trach-Vent Cardiovascular: normal rate Respiratory/Chest: decreased breath sounds Abdomen: distended Objective no change Sav Salvador MD Jul 05, 2019 10:29
--- NOTE | 2019-07-05 10:50 | NUR ---
NURSE NOTES: Discontinued IV fluids per order.
--- NOTE | 2019-07-05 11:00 | NUR ---
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 SEPSIS T 99.6 HR 69 RR 16 BP 89.45 SAT 98% MECH VENT FIO2 35 H/H 9.2/29.0 ALK PHOS 200 IS: AMIKACIN IV Q36HR MIDODRINE GT Q8HR LEVOPHED IV GTT ICU STATUS DCP: [facility]
--- NOTE | 2019-07-05 11:01 | Infectious Diseases Prog Note ---
Assessment/Plan Assessment/Plan Mr. Huffman is a 68 yo male with PMHx of of chronic resp failure trach/vent dependant, diffuse ulcerative esophagitis, peptic esophageal stricture, asthma, GERD, Dm2, CVA/TIA w/ hemiplegia, functional quadriplegia, CAD, CHF, ESBL UTI , GIB s/p multiple EGDs in the past, schizoaffective disorder, Dementia, hypothyroidism, malnutrition, non verbal, infected obstuctive ureterolithiasis/ w abscess s/p L NT palced 12/2018, encephalopathy, Alzheimer's disease, multiple admissions, subacute facility resident who was sent to the for hypotension and bradycardia. Shock, recurrent (06/29)- SP- r/o septic vs neurogenic- off pressors now Probable recurent PNA -07/02 CXR: . Interstitial edema with moderate bilateral layering pleural effusions, grossly unchanged. Bibasilar airspace opacities which likely represent combination of pleural fluid and atelectasis, but pneumonia should be excluded clinically. -06/30 u/a tntc, nit neg, leuk +3; ucx C. tropicalis Bcx NTD CXR: Bilateral pleural effusions and bilateral interstitial and airspace edema are unchanged. sp cx GNR MDR PsA (S AMikacin), MDR P. mirabilis ( S Zosyn, Ertapenem, Amikacin) Status epilepticus Leukocytosis; mild recurrent- resolved Hypothermia; SP > Low grade fever 06/30; SP Septic Shock, SP- likely 2ry to UTI and PNA, sp Rx off pressors now Hx of resistant infections 06/23 CXR; Bilateral right greater than left pleural effusions are again demonstrated. Bilateral interstitial and airspace edema persists, unchanged Urine Cx 06/14/19 - >100k ESBL P, stuarti, ESBL P mirabilis (both S Ertapenem , ZOsyn) Blood Cx - NTD CXR show probable pna sp cx PsA (R imipenem, I levaquin), S. maltophila (S bactrim, levaquin) GT leakage with cellulitis, SP -wound cx MDR/CRE K.pna, MDR PsA (colonizers) Chronic resp failure trach/vent dependant asthma Dm2 CVA/TIA w/ hemiplegia Functional quadriplegia CAD CHF GIB s/p multiple EGDs in the past Schizoaffective disorder Dementia Hypothyroidism Non verbal Alzheimer's disease PLAN: -Continue IV Amikacin #2 for MDR in sputum -07/04 SP Cefepime #5 -07/03 SP IV Vancomycin # -06/27 SP Levaquin #5 -06/24 SP IV Amikacin #10 -06/23 SP Ertapenem #9 and IV Vancomycin #9 -06/17 SP PO Vancomycin #3 -06/16 SP Flagyl #2 - monitor CBC and Temps -wound care per hospital protocol -GI f/u -f/u Bcx x2 Thank you for this consult. [facility] will continue to follow the patient with you during this hospitalization. Subjective Allergies: Coded Allergies: NO KNOWN DRUG ALLERGIES (Verified Allergy, Unknown, 09/11/16) Subjective afebrile off levophed no leukocytosis Objective Vital Signs Last 24 Hour Vital Signs Date Time Temp Pulse Resp B/P (MAP) Pulse Ox O2 Delivery O2 Flow Rate FiO2 07/05/19 10:00 63 16 106/44 (64) 99 07/05/19 09:00 70 17 150/79 (102) 98 07/05/19 08:55 62 16 35 07/05/19 08:00 Mechanical Ventilator 07/05/19 08:00 97.2 69 16 130/58 (82) 98 07/05/19 08:00 35 07/05/19 07:00 72 18 127/57 (80) 100 07/05/19 06:45 70 16 35 07/05/19 06:00 70 16 137/59 (85) 97 07/05/19 05:03 65 16 35 07/05/19 05:00 66 16 129/70 (89) 96 07/05/19 04:00 Mechanical Ventilator 07/05/19 04:00 67 07/05/19 04:00 35 07/05/19 04:00 99.6 59 16 100/51 (67) 100 07/05/19 03:00 68 16 114/53 (73) 100 07/05/19 02:43 69 17 30 07/05/19 02:00 70 17 129/70 (89) 99 07/05/19 01:00 69 20 134/67 (89) 98 07/05/19 00:49 68 21 30 07/05/19 00:30 66 17 89/45 (60) 98 07/05/19 00:00 30 07/05/19 00:00 68 18 105/51 (69) 98 07/05/19 00:00 72 07/05/19 00:00 Mechanical Ventilator 07/04/19 23:00 67 17 139/65 (89) 98 07/04/19 22:31 70 16 30 07/04/19 22:00 71 19 132/75 (94) 97 07/04/19 21:29 71 18 30 07/04/19 21:11 128/56 07/04/19 21:00 70 17 110/60 (77) 98 07/04/19 20:00 Mechanical Ventilator 07/04/19 20:00 30 07/04/19 20:00 68 07/04/19 20:00 98.1 72 18 123/56 (78) 98 07/04/19 19:00 78 16 128/56 (80) 98 07/04/19 18:55 72 18 30 07/04/19 18:30 71 17 125/56 (79) 98 07/04/19 18:00 70 18 136/60 (85) 98 07/04/19 17:30 70 18 126/59 (81) 98 07/04/19 17:00 71 15 136/59 (84) 98 07/04/19 16:56 71 19 30 07/04/19 16:30 68 16 125/86 (99) 97 07/04/19 16:00 Mechanical Ventilator 07/04/19 16:00 30 07/04/19 16:00 97.6 63 16 113/52 (72) 99 07/04/19 16:00 69 07/04/19 15:30 69 16 119/65 (83) 98 07/04/19 15:00 70 18 122/58 (79) 100 07/04/19 14:30 75 19 148/66 (93) 96 07/04/19 14:30 67 16 30 07/04/19 14:15 130/67 07/04/19 14:00 69 17 142/66 (91) 96 07/04/19 14:00 142/66 07/04/19 13:30 63 17 86/43 (57) 98 07/04/19 13:00 67 16 124/91 (102) 98 07/04/19 13:00 124/91 07/04/19 12:49 68 16 30 07/04/19 12:30 67 16 123/61 (81) 94 07/04/19 12:00 Mechanical Ventilator 07/04/19 12:00 62 07/04/19 12:00 97.8 64 16 100/50 (67) 98 07/04/19 12:00 30 07/04/19 12:00 123/61 07/04/19 11:45 67 16 122/60 (80) 95 07/04/19 11:30 65 16 119/54 (75) 96 07/04/19 11:15 79/41 07/04/19 11:15 59 16 79/41 (54) 98 07/04/19 11:00 60 16 83/46 (58) 98 Height (Feet): 5 Height (Inches): 8.00 Weight (Pounds): 151 Objective Gen: On vent in IVU HEENT: NCAT, MMM, PERRL, No Oral lesion, no scleral icterus NECK: supple, No LAD, No JVD, Trached LUNGS: Coarse B/L, No W/C CARDS: RRR, S1, S2, No M/R/G, ABD: Soft, NT, ND, No R/G, + BS, No HSM, No Masses, PEG : Deferred Ext: C/C/E, Pulses 2+ B/L (DP, Rad): NEURO: A/O x 0, no following SKIN: Warm/dry, No rashes Laboratory Tests Test 07/05/19 04:00 White Blood Count 9.0 K/UL (4.8-10.8) Red Blood Count 3.33 M/UL (4.70-6.10) L Hemoglobin 9.2 G/DL (14.2-18.0) L Hematocrit 29.0 % (42.0-52.0) L Mean Corpuscular Volume 87 FL (80-99) Mean Corpuscular Hemoglobin 27.7 PG (27.0-31.0) Mean Corpuscular Hemoglobin Concent 31.9 G/DL (32.0-36.0) L Red Cell Distribution Width 15.1 % (11.6-14.8) H Platelet Count 328 K/UL (150-450) Mean Platelet Volume 7.9 FL (6.5-10.1) Neutrophils (%) (Auto) 65.0 % (45.0-75.0) Lymphocytes (%) (Auto) 17.3 % (20.0-45.0) L Monocytes (%) (Auto) 10.3 % (1.0-10.0) H Eosinophils (%) (Auto) 6.1 % (0.0-3.0) H Basophils (%) (Auto) 1.3 % (0.0-2.0) Sodium Level 141 MMOL/L (136-145) Potassium Level 4.8 MMOL/L (3.5-5.1) Chloride Level 110 MMOL/L (98-107) H Carbon Dioxide Level 24 MMOL/L (21-32) Anion Gap 7 mmol/L (5-15) Blood Urea Nitrogen 37 mg/dL (7-18) H Creatinine 1.1 MG/DL (0.55-1.30) Estimat Glomerular Filtration Rate > 60 mL/min (>60) Glucose Level 97 MG/DL (74-106) Calcium Level 8.0 MG/DL (8.5-10.1) L Phosphorus Level 3.5 MG/DL (2.5-4.9) Magnesium Level 2.1 MG/DL (1.8-2.4) Total Bilirubin 0.2 MG/DL (0.2-1.0) Aspartate Amino Transf (AST/SGOT) 14 U/L (15-37) L Alanine Aminotransferase (ALT/SGPT) 16 U/L (12-78) Alkaline Phosphatase 200 U/L (46-116) H Total Protein 6.2 G/DL (6.4-8.2) L Albumin 2.0 G/DL (3.4-5.0) L Globulin 4.2 g/dL Albumin/Globulin Ratio 0.5 (1.0-2.7) L Current Medications Medications (Trade) Dose Ordered Sig/Wanda Route PRN Reason Start Time Stop Time Status Last Admin Dose Admin Acetaminophen (Tylenol) 650 mg Q4H PRN GT fever (temp>100.5F) 06/29/19 19:33 07/29/19 19:32 06/30/19 18:54 Amikacin Protocol (Amikacin pharmacy to dose) 1 ea DAILY PRN MISC Per rx protocol 07/04/19 15:15 08/03/19 15:14 Amikacin Sulfate 500 mg/Sodium Chloride 112 ml @ 112 mls/hr Q36H IV 07/04/19 16:00 07/11/19 15:59 07/04/19 16:30 Chlorhexidine Gluconate (Jasmin-Hex 2%) 1 applic DAILY@2000 TOPIC 06/29/19 20:00 07/20/19 19:59 07/04/19 21:10 Lansoprazole (Prevacid) 30 mg BID GT 07/01/19 18:00 07/31/19 17:59 07/05/19 08:26 Levetiracetam (Keppra) 1,000 mg Q12HR NG 07/05/19 21:00 08/04/19 20:59 Levothyroxine Sodium (Synthroid) 88 mcg DAILY@0630 GT 06/30/19 06:30 07/20/19 06:29 07/05/19 05:36 Lorazepam (Ativan 2mg/ml 1ml) 2 mg Q4H PRN IVP For Seizures 06/29/19 19:33 07/06/19 19:32 Midodrine (Pro-Amatine) 10 mg EVERY 8 HOURS GT 07/01/19 14:00 07/17/19 12:59 07/05/19 05:35 Norepinephrine Bitartrate 4 mg/ Dextrose 250 ml @ 0 mls/hr Q24H IV 06/29/19 22:30 07/29/19 22:29 07/03/19 19:30 Ondansetron HCl (Zofran) 4 mg Q6H PRN IVP Nausea & Vomiting 06/29/19 19:33 07/29/19 19:32 Phenobarbital (PHENobarbital) 60 mg Q8HR NG 07/01/19 14:00 07/31/19 13:59 07/05/19 05:36 Phenytoin 200 mg/ Sodium Chloride 59 ml @ 118 mls/hr QHS IVPB 07/06/19 21:00 08/02/19 08:59 Polyethylene Glycol (Miralax) 17 gm DAILYPRN PRN GT Constipation 06/29/19 19:33 07/29/19 19:32 Sucralfate (Carafate) 1 gm EVERY 8 HOURS GT 06/29/19 22:00 07/21/19 08:59 10/26/19 05:35 Zinc Oxide (Zinc Oxide) 1 applic [facility] TOPIC 06/29/19 21:00 07/21/19 08:59 07/04/19 21:17 Lisy Lai M.D. Jul 05, 2019 11:01
--- NOTE | 2019-07-05 12:02 | NUR ---
NURSE NOTES: Repositioned patient. Oral care and trach, oral suction provided.
--- NOTE | 2019-07-05 12:28 | Hematology/Onc Progress Note ---
Assessment/Plan Assessment/Plan ASSESSMENT/RECOMMENDATIONS # Anemia of chronic disease due to underlying chronic medical issues, multifactorial --> Anemia w/u has been reviewed and c/w acd ferritin 635, tibc 160 --> No evidence of hemolysis is noted, peripheral smear has been reviewed. --> Hgb goal >7. Transfuse prn. --> Epogen or iron at this time is not particularly indicated --> unable to obtain consent, with no family --> r/o hemolysis as well --> hgb 7.5-->8-->8.7-->8.2-->7.8-->8-->7.4-->8.8-->8.3-->8->9.5->8.2-->7.5->7.6 ->9.6 --> 06/26: EGD/COLO with diverticulosis --> spep is negative for bands # Leukocytosis. Likely related to underlying infection versus reactive process. patient with septic shock on admission --> Peripheral has been reviewed--> rouleaux formation on smear --> Medications have been reviewed --> Imaging has been reviewed. CXR shows Suboptimal positioning. No interval consolidation, overt edema or other acute cardiopulmonary findings. 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 Greatly appreciate consultation. Subjective Constitutional: Denies: no symptoms, chills, fever, malaise, weakness, other HEENT: Denies: no symptoms, eye pain, blurred vision, tearing, double vision, ear pain, ear discharge, nose pain, nose congestion, throat pain, throat swelling, mouth pain, mouth swelling, other Cardiovascular: Denies: no symptoms, chest pain, edema, irregular heart rate, lightheadedness, palpitations, syncope, other Respiratory: Denies: no symptoms, cough, shortness of breath, SOB with excertion, SOB at rest, sputum, wheezing, other Gastrointestinal/Abdominal: Denies: no symptoms, abdomen distended, abdominal pain, black stools, tarry stools, blood in stool, constipated, diarrhea, difficulty swallowing, nausea, poor appetite, poor fluid intake, rectal bleeding , vomiting, other Genitourinary: Denies: no symptoms, burning, discharge, frequency, flank pain, hematuria, incontinence, pain, urgency, other Neurologic/Psychiatric: Denies: no symptoms, anxiety, depressed, emotional problems, headache, numbness, paresthesia, pre-existing deficit, seizure, tingling, tremors, weakness, other Hematologic/Lymphatic: Denies: no symptoms, anemia, easy bleeding, easy bruising, adenopathy, other Allergies: Coded Allergies: NO KNOWN DRUG ALLERGIES (Verified Allergy, Unknown, 09/11/16) Subjective 06/17: blood transfusion completed, on low dose pressors, no bleeding noted 06/19: liya rn, no major events, cbc reviewed, tube feeds ongoing 06/22: no major changes, no bleeding or night sweats, on abx, in sariah 06/23: no f/c, no bleeding, labs noted, in sariah, hgb 8, plt 120k 06/24: labs reviewed, no bleeding, no night sweats, no bleeding 06/25: heparin held for potential bleed, gt is clamped, no events, no fc 06/26: for egd today with gi, bleeding noted, requiring prbc transf 06/27: gi procedure was done today and noted for diverticulosis, otherwise cbc stable 06/28: remains stable, being treated for gerd, hgb 8, no bleeding 06/29: no bleeding noted, no chills, no night sweats, no fc 06/30: no bleeding, on pressors, no major changes hgb 8.2 07/01: on pressors, with gt feeds, seen by gi wbc is better 07/02: 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, is off pressor in icu, labs noted, liya rn 07/03: on vent, prbc transfusion going, no major changes, no bleeding 07/04: no events noted, on trach/vent, no bleeding, labs noted levo held 07/05: no events, no bleeding, obtunded, liya rn, on vent/trach Objective Objective Current Medications Medications (Trade) Dose Ordered Sig/Wanda Route PRN Reason Start Time Stop Time Status Last Admin Dose Admin Acetaminophen (Tylenol) 650 mg Q4H PRN GT fever (temp>100.5F) 06/29/19 19:33 07/29/19 19:32 06/30/19 18:54 Amikacin Protocol (Amikacin pharmacy to dose) 1 ea DAILY PRN MISC Per rx protocol 07/04/19 15:15 08/03/19 15:14 Amikacin Sulfate 500 mg/Sodium Chloride 112 ml @ 112 mls/hr Q36H IV 07/04/19 16:00 07/11/19 15:59 07/04/19 16:30 Chlorhexidine Gluconate (Jasmin-Hex 2%) 1 applic DAILY@2000 TOPIC 06/29/19 20:00 07/20/19 19:59 07/04/19 21:10 Lansoprazole (Prevacid) 30 mg BID GT 07/01/19 18:00 07/31/19 17:59 07/05/19 08:26 Levetiracetam (Keppra) 1,000 mg Q12HR NG 07/05/19 21:00 08/04/19 20:59 Levothyroxine Sodium (Synthroid) 88 mcg DAILY@0630 GT 06/30/19 06:30 07/20/19 06:29 07/05/19 05:36 Lorazepam (Ativan 2mg/ml 1ml) 2 mg Q4H PRN IVP For Seizures 06/29/19 19:33 07/06/19 19:32 Midodrine (Pro-Amatine) 10 mg EVERY 8 HOURS GT 07/01/19 14:00 07/17/19 12:59 07/05/19 05:35 Norepinephrine Bitartrate 4 mg/ Dextrose 250 ml @ 0 mls/hr Q24H IV 06/29/19 22:30 07/29/19 22:29 07/03/19 19:30 Ondansetron HCl (Zofran) 4 mg Q6H PRN IVP Nausea & Vomiting 06/29/19 19:33 07/29/19 19:32 Phenobarbital (PHENobarbital) 60 mg Q8HR NG 07/01/19 14:00 07/31/19 13:59 07/05/19 05:36 Phenytoin 200 mg/ Sodium Chloride 59 ml @ 118 mls/hr QHS IVPB 07/06/19 21:00 08/02/19 08:59 Polyethylene Glycol (Miralax) 17 gm DAILYPRN PRN GT Constipation 06/29/19 19:33 07/29/19 19:32 Sucralfate (Carafate) 1 gm EVERY 8 HOURS GT 06/29/19 22:00 07/21/19 08:59 07/05/19 05:35 Zinc Oxide (Zinc Oxide) 1 applic QHS TOPIC 06/29/19 21:00 07/21/19 08:59 07/04/19 21:17 Last 24 Hour Vital Signs Date Time Temp Pulse Resp B/P (MAP) Pulse Ox O2 Delivery O2 Flow Rate FiO2 07/05/19 12:00 97.5 65 16 111/59 (76) 97 07/05/19 12:00 Mechanical Ventilator 07/05/19 12:00 35 07/05/19 11:00 63 16 108/65 (79) 99 07/05/19 10:45 64 17 35 07/05/19 10:00 63 16 106/44 (64) 99 07/05/19 09:00 70 17 150/79 (102) 98 07/05/19 08:55 62 16 35 07/05/19 08:00 68 07/05/19 08:00 Mechanical Ventilator 07/05/19 08:00 97.2 69 16 130/58 (82) 98 07/05/19 08:00 35 07/05/19 07:00 72 18 127/57 (80) 100 07/05/19 06:45 70 16 35 07/05/19 06:00 70 16 137/59 (85) 97 07/05/19 05:03 65 16 35 07/05/19 05:00 66 16 129/70 (89) 96 07/05/19 04:00 Mechanical Ventilator 07/05/19 04:00 67 07/05/19 04:00 35 07/05/19 04:00 99.6 59 16 100/51 (67) 100 07/05/19 03:00 68 16 114/53 (73) 100 07/05/19 02:43 69 17 30 07/05/19 02:00 70 17 129/70 (89) 99 07/05/19 01:00 69 20 134/67 (89) 98 07/05/19 00:49 68 21 30 07/05/19 00:30 66 17 89/45 (60) 98 07/05/19 00:00 30 07/05/19 00:00 68 18 105/51 (69) 98 07/05/19 00:00 72 07/05/19 00:00 Mechanical Ventilator 07/04/19 23:00 67 17 139/65 (89) 98 07/04/19 22:31 70 16 30 07/04/19 22:00 71 19 132/75 (94) 97 07/04/19 21:29 71 18 30 07/04/19 21:11 128/56 07/04/19 21:00 70 17 110/60 (77) 98 07/04/19 20:00 Mechanical Ventilator 07/04/19 20:00 30 07/04/19 20:00 68 07/04/19 20:00 98.1 72 18 123/56 (78) 98 07/04/19 19:00 78 16 128/56 (80) 98 07/04/19 18:55 72 18 30 07/04/19 18:30 71 17 125/56 (79) 98 07/04/19 18:00 70 18 136/60 (85) 98 07/04/19 17:30 70 18 126/59 (81) 98 07/04/19 17:00 71 15 136/59 (84) 98 07/04/19 16:56 71 19 30 07/04/19 16:30 68 16 125/86 (99) 97 07/04/19 16:00 Mechanical Ventilator 07/04/19 16:00 30 07/04/19 16:00 97.6 63 16 113/52 (72) 99 07/04/19 16:00 69 07/04/19 15:30 69 16 119/65 (83) 98 07/04/19 15:00 70 18 122/58 (79) 100 07/04/19 14:30 75 19 148/66 (93) 96 07/04/19 14:30 67 16 30 07/04/19 14:15 130/67 07/04/19 14:00 69 17 142/66 (91) 96 07/04/19 14:00 142/66 07/04/19 13:30 63 17 86/43 (57) 98 07/04/19 13:00 67 16 124/91 (102) 98 07/04/19 13:00 124/91 07/04/19 12:49 68 16 30 07/04/19 12:30 67 16 123/61 (81) 94 07/04/19 12:00 Mechanical Ventilator 07/04/19 12:00 62 07/04/19 12:00 97.8 64 16 100/50 (67) 98 07/04/19 12:00 30 07/04/19 12:00 123/61 07/04/19 11:45 67 16 122/60 (80) 95 07/04/19 11:30 65 16 119/54 (75) 96 07/04/19 11:15 79/41 07/04/19 11:15 59 16 79/41 (54) 98 07/04/19 11:00 60 16 83/46 (58) 98 07/04/19 10:35 71 17 99 Mechanical Ventilator 30 07/04/19 10:34 71 17 30 07/04/19 10:30 66 16 127/65 (85) 100 07/04/19 10:00 70 16 93/48 (63) 100 07/04/19 09:30 71 16 151/76 (101) 100 07/04/19 09:00 152/76 07/04/19 09:00 77 17 152/76 (101) 100 07/04/19 08:46 77 17 30 07/04/19 08:30 77 17 161/86 (111) 99 07/04/19 08:00 142/73 07/04/19 08:00 69 16 142/73 (96) 100 07/04/19 08:00 Mechanical Ventilator 07/04/19 08:00 30 07/04/19 08:00 66 07/04/19 07:30 97.1 67 16 146/85 (105) 98 07/04/19 07:10 58 16 30 07/04/19 07:00 89/50 07/04/19 06:45 51 16 83/43 (56) 100 07/04/19 06:30 52 16 91/48 (62) 100 07/04/19 06:15 55 16 117/52 (73) 100 07/04/19 06:00 117/52 07/04/19 06:00 50 16 96/52 (67) 100 07/04/19 05:45 54 16 133/63 (86) 100 07/04/19 05:30 49 16 107/55 (72) 100 07/04/19 05:22 51 16 97/50 (66) 100 07/04/19 05:20 53 16 106/52 (70) 100 07/04/19 05:15 49 16 87/58 (68) 100 07/04/19 05:00 60 16 126/62 (83) 100 07/04/19 05:00 126/62 07/04/19 04:55 56 16 30 07/04/19 04:45 65 16 141/70 (93) 100 07/04/19 04:30 68 19 138/70 (92) 100 07/04/19 04:15 70 20 154/82 (106) 100 07/04/19 04:00 30 07/04/19 04:00 99.4 67 17 155/71 (99) 99 07/04/19 04:00 137/75 07/04/19 04:00 Mechanical Ventilator 07/04/19 04:00 56 07/04/19 03:45 69 21 146/71 (96) 99 07/04/19 03:30 66 15 136/65 (88) 100 07/04/19 03:15 65 16 155/73 (100) 100 07/04/19 03:05 52 16 30 07/04/19 03:00 148/56 07/04/19 03:00 63 17 142/65 (90) 100 07/04/19 02:45 60 16 144/63 (90) 100 07/04/19 02:30 59 15 141/59 (86) 100 07/04/19 02:15 58 16 133/65 (87) 100 07/04/19 02:00 54 15 128/55 (79) 100 07/04/19 02:00 128/55 07/04/19 01:45 50 16 92/45 (61) 99 07/04/19 01:41 49 16 86/41 (56) 100 07/04/19 01:30 54 16 98/49 (65) 100 07/04/19 01:15 51 16 114/63 (80) 100 07/04/19 01:14 51 16 30 07/04/19 01:00 56 17 132/58 (82) 100 07/04/19 01:00 98/49 07/04/19 00:45 60 15 149/71 (97) 100 07/04/19 00:30 52 16 118/58 (78) 100 07/04/19 00:15 59 16 149/68 (95) 100 07/04/19 00:00 Mechanical Ventilator 07/04/19 00:00 149/68 07/04/19 00:00 99.3 59 16 149/66 (93) 100 07/04/19 00:00 58 07/04/19 00:00 30 07/03/19 23:45 58 16 148/68 (94) 100 07/03/19 23:30 60 16 150/75 (100) 100 07/03/19 23:15 53 16 133/70 (91) 100 07/03/19 23:03 68 16 30 07/03/19 23:00 53 16 123/56 (78) 99 07/03/19 23:00 123/56 07/03/19 22:45 59 18 151/63 (92) 100 07/03/19 22:30 50 16 138/76 (96) 99 07/03/19 22:15 60 18 151/69 (96) 100 07/03/19 22:00 155/78 07/03/19 22:00 66 17 155/74 (101) 100 07/03/19 21:45 68 17 162/76 (104) 100 07/03/19 21:30 71 19 152/65 (94) 100 07/03/19 21:15 71 20 153/69 (97) 100 07/03/19 21:08 72 18 30 07/03/19 21:03 153/69 07/03/19 21:00 71 17 141/65 (90) 100 07/03/19 20:45 98.9 71 19 131/59 (83) 100 07/03/19 20:30 73 18 134/69 (90) 100 07/03/19 20:15 73 17 131/72 (91) 100 07/03/19 20:00 35 07/03/19 20:00 Mechanical Ventilator 07/03/19 20:00 75 07/03/19 20:00 75 17 134/82 (99) 100 07/03/19 19:45 68 17 111/60 (77) 100 07/03/19 19:30 133/60 07/03/19 19:30 71 18 118/53 (74) 100 07/03/19 19:15 72 20 118/57 (77) 100 07/03/19 19:00 133/60 07/03/19 19:00 71 17 133/60 (84) 100 07/03/19 18:56 72 16 30 07/03/19 18:30 70 18 125/53 (77) 100 07/03/19 18:00 72 17 123/60 (81) 100 07/03/19 18:00 123/60 07/03/19 17:30 71 19 127/57 (80) 100 07/03/19 17:01 67 16 35 07/03/19 17:00 124/64 07/03/19 17:00 99.6 68 17 124/62 (82) 100 07/03/19 16:40 99.8 65 16 101/49 (66) 99 07/03/19 16:30 66 16 103/54 (70) 99 07/03/19 16:00 73 07/03/19 16:00 Mechanical Ventilator 07/03/19 16:00 99.8 71 19 109/56 (73) 100 07/03/19 16:00 102/50 07/03/19 16:00 35 07/03/19 15:30 74 18 122/58 (79) 99 07/03/19 15:00 73 19 124/65 (84) 100 07/03/19 15:00 124/65 07/03/19 14:35 74 17 35 07/03/19 14:30 70 18 107/48 (67) 100 10/24/19 14:00 115/54 07/03/19 14:00 73 19 115/54 (74) 99 07/03/19 13:30 74 18 127/49 (75) 99 07/03/19 13:27 73 18 35 07/03/19 13:00 130/57 07/03/19 13:00 73 19 130/57 (81) 100 07/03/19 12:30 73 17 120/56 (77) 100 Intake and Output 07/04/19 07/05/19 19:00 07:00 Intake Total 2235.368 ml 1379 ml Output Total 725 ml 790 ml Balance 1510.368 ml 589 ml Intake Free Water 350 ml 175 ml IV Total 1175.368 ml 709 ml Tube Feeding 680 ml 495 ml Other 30 ml Output Urine Total 725 ml 690 ml Stool Total 100 ml # Bowel Movements 1 Labs Test 07/02/19 16:49 07/03/19 03:40 07/04/19 04:00 07/05/19 04:00 Vancomycin Level Trough 38.7 ug/mL (5.0-12.0) White Blood Count 6.8 K/UL (4.8-10.8) 9.1 K/UL (4.8-10.8) 9.0 K/UL (4.8-10.8) Red Blood Count 2.78 M/UL (4.70-6.10) 3.44 M/UL (4.70-6.10) 3.33 M/UL (4.70-6.10) Hemoglobin 7.6 G/DL (14.2-18.0) 9.6 G/DL (14.2-18.0) 9.2 G/DL (14.2-18.0) Hematocrit 24.2 % (42.0-52.0) 29.9 % (42.0-52.0) 29.0 % (42.0-52.0) Mean Corpuscular Volume 87 FL (80-99) 87 FL (80-99) 87 FL (80-99) Mean Corpuscular Hemoglobin 27.6 PG (27.0-31.0) 28.0 PG (27.0-31.0) 27.7 PG (27.0-31.0) Mean Corpuscular Hemoglobin Concent 31.6 G/DL (32.0-36.0) 32.2 G/DL (32.0-36.0) 31.9 G/DL (32.0-36.0) Red Cell Distribution Width 16.1 % (11.6-14.8) 15.3 % (11.6-14.8) 15.1 % (11.6-14.8) Platelet Count 330 K/UL (150-450) 330 K/UL (150-450) 328 K/UL (150-450) Mean Platelet Volume 7.6 FL (6.5-10.1) 7.5 FL (6.5-10.1) 7.9 FL (6.5-10.1) Neutrophils (%) (Auto) % (45.0-75.0) 59.0 % (45.0-75.0) 65.0 % (45.0-75.0) Lymphocytes (%) (Auto) % (20.0-45.0) 20.6 % (20.0-45.0) 17.3 % (20.0-45.0) Monocytes (%) (Auto) % (1.0-10.0) 12.0 % (1.0-10.0) 10.3 % (1.0-10.0) Eosinophils (%) (Auto) % (0.0-3.0) 7.0 % (0.0-3.0) 6.1 % (0.0-3.0) Basophils (%) (Auto) % (0.0-2.0) 1.5 % (0.0-2.0) 1.3 % (0.0-2.0) Differential Total Cells Counted 100 Neutrophils % (Manual) 51 % (45-75) Lymphocytes % (Manual) 31 % (20-45) Monocytes % (Manual) 11 % (1-10) Eosinophils % (Manual) 7 % (0-3) Basophils % (Manual) 0 % (0-2) Band Neutrophils 0 % (0-8) Platelet Estimate Adequate Platelet Morphology Normal Hypochromasia 1+ Anisocytosis 1+ Erythrocyte Sedimentation Rate 70 MM/HR (0-20) Sodium Level 143 MMOL/L (136-145) 141 MMOL/L (136-145) 141 MMOL/L (136-145) Potassium Level 4.3 MMOL/L (3.5-5.1) 4.4 MMOL/L (3.5-5.1) 4.8 MMOL/L (3.5-5.1) Chloride Level 111 MMOL/L (98-107) 109 MMOL/L (98-107) 110 MMOL/L (98-107) Carbon Dioxide Level 25 MMOL/L (21-32) 24 MMOL/L (21-32) 24 MMOL/L (21-32) Anion Gap 7 mmol/L (5-15) 8 mmol/L (5-15) 7 mmol/L (5-15) Blood Urea Nitrogen 21 mg/dL (7-18) 22 mg/dL (7-18) 37 mg/dL (7-18) Creatinine 1.3 MG/DL (0.55-1.30) 1.2 MG/DL (0.55-1.30) 1.1 MG/DL (0.55-1.30) Estimat Glomerular Filtration Rate 54.6 mL/min (>60) 59.9 mL/min (>60) > 60 mL/min (>60) Glucose Level 131 MG/DL (74-106) 135 MG/DL (74-106) 97 MG/DL (74-106) Calcium Level 8.2 MG/DL (8.5-10.1) 8.1 MG/DL (8.5-10.1) 8.0 MG/DL (8.5-10.1) Phosphorus Level 2.4 MG/DL (2.5-4.9) 2.4 MG/DL (2.5-4.9) 3.5 MG/DL (2.5-4.9) Magnesium Level 1.8 MG/DL (1.8-2.4) 1.7 MG/DL (1.8-2.4) 2.1 MG/DL (1.8-2.4) Total Bilirubin 0.2 MG/DL (0.2-1.0) 0.4 MG/DL (0.2-1.0) 0.2 MG/DL (0.2-1.0) Aspartate Amino Transf (AST/SGOT) 13 U/L (15-37) 14 U/L (15-37) 14 U/L (15-37) Alanine Aminotransferase (ALT/SGPT) 21 U/L (12-78) 19 U/L (12-78) 16 U/L (12-78) Alkaline Phosphatase 180 U/L (46-116) 203 U/L (46-116) 200 U/L (46-116) C-Reactive Protein, Quantitative 6.5 mg/dL (0.00-0.90) Total Protein 5.9 G/DL (6.4-8.2) 6.4 G/DL (6.4-8.2) 6.2 G/DL (6.4-8.2) Albumin 2.0 G/DL (3.4-5.0) 2.2 G/DL (3.4-5.0) 2.0 G/DL (3.4-5.0) Globulin 3.9 g/dL 4.2 g/dL 4.2 g/dL Albumin/Globulin Ratio 0.5 (1.0-2.7) 0.5 (1.0-2.7) 0.5 (1.0-2.7) Phenytoin (Dilantin) Level 19.2 ug/mL (10-20) Phenobarbital Level 22.6 ug/mL (15-40) Height (Feet): 5 Height (Inches): 8.00 Weight (Pounds): 151 Objective PHYSICAL EXAMINATION: VITAL SIGNS: Have been reviewed HEENT: Trach/vent site ++ CHEST: Bibasilar rales CV: Regular rate and rhythm. GI: Positive bowel sounds. G-tube++ EXTREMITIES: + edema. NEUROLOGICAL: Reflexes equal on both sides. Nikos Nath MD Jul 05, 2019 12:28
--- NOTE | 2019-07-05 14:10 | Surgery Progress Note ---
Surgery Progress Note Subjective Additional Comments Afebrile, hemodynamically stable, labs noted and stable if not improved. LFTs improved. Imaging noted. Exam stable. Objective Last 24 Hour Vital Signs Date Time Temp Pulse Resp B/P (MAP) Pulse Ox O2 Delivery O2 Flow Rate FiO2 07/05/19 13:06 67 16 35 07/05/19 12:00 65 07/05/19 12:00 97.5 65 16 111/59 (76) 97 07/05/19 12:00 Mechanical Ventilator 07/05/19 12:00 35 07/05/19 11:00 63 16 108/65 (79) 99 07/05/19 10:45 64 17 35 07/05/19 10:00 63 16 106/44 (64) 99 07/05/19 09:00 70 17 150/79 (102) 98 07/05/19 08:55 62 16 35 07/05/19 08:00 68 07/05/19 08:00 Mechanical Ventilator 07/05/19 08:00 97.2 69 16 130/58 (82) 98 07/05/19 08:00 35 07/05/19 07:00 72 18 127/57 (80) 100 07/05/19 06:45 70 16 35 07/05/19 06:00 70 16 137/59 (85) 97 07/05/19 05:03 65 16 35 07/05/19 05:00 66 16 129/70 (89) 96 07/05/19 04:00 Mechanical Ventilator 07/05/19 04:00 67 07/05/19 04:00 35 07/05/19 04:00 99.6 59 16 100/51 (67) 100 07/05/19 03:00 68 16 114/53 (73) 100 07/05/19 02:43 69 17 30 07/05/19 02:00 70 17 129/70 (89) 99 07/05/19 01:00 69 20 134/67 (89) 98 07/05/19 00:49 68 21 30 07/05/19 00:30 66 17 89/45 (60) 98 07/05/19 00:00 30 07/05/19 00:00 68 18 105/51 (69) 98 07/05/19 00:00 72 07/05/19 00:00 Mechanical Ventilator 07/04/19 23:00 67 17 139/65 (89) 98 07/04/19 22:31 70 16 30 07/04/19 22:00 71 19 132/75 (94) 97 07/04/19 21:29 71 18 30 07/04/19 21:11 128/56 07/04/19 21:00 70 17 110/60 (77) 98 07/04/19 20:00 Mechanical Ventilator 07/04/19 20:00 30 07/04/19 20:00 68 07/04/19 20:00 98.1 72 18 123/56 (78) 98 07/04/19 19:00 78 16 128/56 (80) 98 07/04/19 18:55 72 18 30 07/04/19 18:30 71 17 125/56 (79) 98 07/04/19 18:00 70 18 136/60 (85) 98 07/04/19 17:30 70 18 126/59 (81) 98 07/04/19 17:00 71 15 136/59 (84) 98 07/04/19 16:56 71 19 30 07/04/19 16:30 68 16 125/86 (99) 97 07/04/19 16:00 Mechanical Ventilator 07/04/19 16:00 30 07/04/19 16:00 97.6 63 16 113/52 (72) 99 07/04/19 16:00 69 07/04/19 15:30 69 16 119/65 (83) 98 07/04/19 15:00 70 18 122/58 (79) 100 07/04/19 14:30 75 19 148/66 (93) 96 07/04/19 14:30 67 16 30 07/04/19 14:15 130/67 I&O Intake and Output 07/04/19 07/05/19 19:00 07:00 Intake Total 2235.368 ml 1379 ml Output Total 725 ml 790 ml Balance 1510.368 ml 589 ml Intake Free Water 350 ml 175 ml IV Total 1175.368 ml 709 ml Tube Feeding 680 ml 495 ml Other 30 ml Output Urine Total 725 ml 690 ml Stool Total 100 ml # Bowel Movements 1 Dressing: saturated, other Wound: clean, other Drains: other Cardiovascular: RSR Respiratory: decreased breath sounds Abdomen: soft, distended, present bowel sounds, other Extremities: no tenderness, no cyanosis Laboratory Tests Test 10/26/19 04:00 White Blood Count 9.0 K/UL (4.8-10.8) Red Blood Count 3.33 M/UL (4.70-6.10) L Hemoglobin 9.2 G/DL (14.2-18.0) L Hematocrit 29.0 % (42.0-52.0) L Mean Corpuscular Volume 87 FL (80-99) Mean Corpuscular Hemoglobin 27.7 PG (27.0-31.0) Mean Corpuscular Hemoglobin Concent 31.9 G/DL (32.0-36.0) L Red Cell Distribution Width 15.1 % (11.6-14.8) H Platelet Count 328 K/UL (150-450) Mean Platelet Volume 7.9 FL (6.5-10.1) Neutrophils (%) (Auto) 65.0 % (45.0-75.0) Lymphocytes (%) (Auto) 17.3 % (20.0-45.0) L Monocytes (%) (Auto) 10.3 % (1.0-10.0) H Eosinophils (%) (Auto) 6.1 % (0.0-3.0) H Basophils (%) (Auto) 1.3 % (0.0-2.0) Sodium Level 141 MMOL/L (136-145) Potassium Level 4.8 MMOL/L (3.5-5.1) Chloride Level 110 MMOL/L (98-107) H Carbon Dioxide Level 24 MMOL/L (21-32) Anion Gap 7 mmol/L (5-15) Blood Urea Nitrogen 37 mg/dL (7-18) H Creatinine 1.1 MG/DL (0.55-1.30) Estimat Glomerular Filtration Rate > 60 mL/min (>60) Glucose Level 97 MG/DL (74-106) Calcium Level 8.0 MG/DL (8.5-10.1) L Phosphorus Level 3.5 MG/DL (2.5-4.9) Magnesium Level 2.1 MG/DL (1.8-2.4) Total Bilirubin 0.2 MG/DL (0.2-1.0) Aspartate Amino Transf (AST/SGOT) 14 U/L (15-37) L Alanine Aminotransferase (ALT/SGPT) 16 U/L (12-78) Alkaline Phosphatase 200 U/L (46-116) H Total Protein 6.2 G/DL (6.4-8.2) L Albumin 2.0 G/DL (3.4-5.0) L Globulin 4.2 g/dL Albumin/Globulin Ratio 0.5 (1.0-2.7) L Plan Problems: (1) Severe protein-calorie malnutrition Assessment & Plan: DAILY ESTIMATED NEEDS: Needs based on Critical care, underweight TF HOCKEY SCOUT 56.8 30-35 kcals/kg 0356-5949 total kcals 1.25-2 g protein/kg 71-113.6 g total protein 25-30 mL/kg 4209-4736 total fluid mLs NUTRITION DIAGNOSIS: * Increased kcal/prot intake needs R/T sepsis and underweight status as evidenced by pt adm w/ critically elev WBC (35.7*), febrile, @68% [place] Body Weight. * Swallowing difficulty R/T respiratory status as evidenced by pt vent dep via trach, PEG dep. ENTERAL NUTRITION RECOMMENDATIONS: Nepro @45mL/hr x 22hr to provide 990mL, 1782kcal, 80g pro, 720mL free water -When Hemodynamically stable, start Nepro @ 15mL/hr for 6 hrs. -Advance as tolerated 10mL q 4-6 hrs to goal. -TF @goal meets 100% est needs. -Flush per MD/ HOB >30 degrees. ADDITIONAL RECOMMENDATIONS: * Calibrated bedscale weight for accurate CBW + weekly wt monitoring * Per [facility]: Ht of 6'1", Wt 125# (05/2019) * TF recs as above when medically stable * Monitor for cont'd need of renal formula (K 5.5) * Monitor lytes and hydration status. (2) Feeding by G-tube Assessment & Plan: g tube changed (3) Respiratory failure, [id number] (4) Septic shock Assessment & Plan: Acute decline with hypertension tachycardia now on pressors Labs as above Detailed examination done and abdominal distention noted. kub okay cxr noted exam stable will follow with recs thank you (5) Severe sepsis (6) GT SITE LEAKING Assessment & Plan: Patient identified worsening G-tube site leakage and cellulitis. This has been noted on prior admissions which is cared for. Plan for placement as below Pt presents with contractures. Skin erosions to abdominal region, and multiple areas of non-blanching erythema. Skin erosion noted to abdomen extending around GT and mostly to L abdominal area, skin is grossly red and excoriated. Furuncle noted to L flank oozing moderate amt purulent exudate. Non-blanchable erythema without fluctuance noted to L lateral malleolus (L) 1.5cm x (W)3cm. Non-blanchable erythema without fluctuance noted to lateral L foot (L)1cm x (W) 1cm. Non-blanchable erythema noted to sacral cleft. No other skin concerns noted. Tx.Plan: Apply Zinc Oxide Paste to GT site and excoriated areas on abd daily and prn. Apply Betadine to Boil L flank Daily .Cover with Optifoam drsg. Change daily and prn. Apply Moisture Barrier Paste to sacrum. Cover with Optifoam drsg. Change every 3 days and prn. Apply Cavilon to Non-blanchable areas L foot and bilat heels. Cover each site with Optifoam drsg. Change every 7 days and prn. Reposition at least every 2hours or as tolerated. Place pillow between knees. Off-load heels with pillow. APM/RENO Mattress overlay. Quirino Bernard Jul 05, 2019 14:09
[2019-07-05] MEDS ORDERED: Isovue-300 100ml vial INJ PRN (14:15)
--- NOTE | 2019-07-05 14:28 | NUR ---
NURSE NOTES: Seen by Dr. Gaffney and assessed with new orders.
--- NOTE | 2019-07-05 15:11 | General Progress Note ---
Assessment/Plan Problem List: (1) Diabetes ICD Codes: E11.9 - Type 2 diabetes mellitus without complications SNOMED: 52065726 (2) HTN (hypertension) ICD Codes: I10 - Essential (primary) hypertension SNOMED: 48188021 (3) CVA (cerebral vascular accident) ICD Codes: I63.9 - Cerebral infarction, unspecified SNOMED: 879751473 (4) Severe protein-calorie malnutrition ICD Codes: E43 - Unspecified severe protein-calorie malnutrition SNOMED: 153524794 (5) Feeding by G-tube ICD Codes: Z93.1 - Gastrostomy status SNOMED: 316253521, 866648414 (6) Respiratory failure, [id number] ICD Codes: J96.20 - Respiratory failure, [id number] SNOMED: 93948761 (7) Anemia ICD Codes: D64.9 - Anemia, unspecified SNOMED: 650817449 (8) Chronic respiratory failure ICD Codes: J96.10 - Chronic respiratory failure, unspecified whether with hypoxia or hypercapnia SNOMED: 08704326 (9) Septic shock ICD Codes: A41.9 - Sepsis, unspecified organism; R65.21 - Severe sepsis with septic shock SNOMED: 03943749 (10) Alzheimer's dementia ICD Codes: G30.9 - Alzheimer's disease, unspecified SNOMED: 90297426 (11) Severe sepsis ICD Codes: A41.9 - Sepsis, unspecified organism; R65.20 - Severe sepsis without septic shock SNOMED: 72253234 (12) Hypothyroidism ICD Codes: E03.9 - Hypothyroidism, unspecified SNOMED: 63994436 Status: unchanged Assessment/Plan: vent abx wean pressor cbc bmp am tranfuse prn neuro eval ltach eval Subjective Constitutional: Reports: weakness Allergies: Coded Allergies: NO KNOWN DRUG ALLERGIES (Verified Allergy, Unknown, 09/11/16) All Systems: reviewed and negative except above Subjective trach vent altered in icu Objective Last 24 Hour Vital Signs Date Time Temp Pulse Resp B/P (MAP) Pulse Ox O2 Delivery O2 Flow Rate FiO2 07/05/19 14:00 63 16 100/46 (64) 99 07/05/19 13:06 67 16 35 07/05/19 13:00 66 17 111/56 (74) 99 07/05/19 12:00 65 07/05/19 12:00 97.5 65 16 111/59 (76) 97 07/05/19 12:00 Mechanical Ventilator 07/05/19 12:00 35 07/05/19 11:00 63 16 108/65 (79) 99 07/05/19 10:45 64 17 35 07/05/19 10:00 63 16 106/44 (64) 99 07/05/19 09:00 70 17 150/79 (102) 98 07/05/19 08:55 62 16 35 07/05/19 08:00 68 07/05/19 08:00 Mechanical Ventilator 07/05/19 08:00 97.2 69 16 130/58 (82) 98 07/05/19 08:00 35 07/05/19 07:00 72 18 127/57 (80) 100 07/05/19 06:45 70 16 35 07/05/19 06:00 70 16 137/59 (85) 97 07/05/19 05:03 65 16 35 07/05/19 05:00 66 16 129/70 (89) 96 07/05/19 04:00 Mechanical Ventilator 07/05/19 04:00 67 07/05/19 04:00 35 07/05/19 04:00 99.6 59 16 100/51 (67) 100 07/05/19 03:00 68 16 114/53 (73) 100 07/05/19 02:43 69 17 30 07/05/19 02:00 70 17 129/70 (89) 99 07/05/19 01:00 69 20 134/67 (89) 98 07/05/19 00:49 68 21 30 07/05/19 00:30 66 17 89/45 (60) 98 07/05/19 00:00 30 07/05/19 00:00 68 18 105/51 (69) 98 07/05/19 00:00 72 07/05/19 00:00 Mechanical Ventilator 07/04/19 23:00 67 17 139/65 (89) 98 07/04/19 22:31 70 16 30 07/04/19 22:00 71 19 132/75 (94) 97 07/04/19 21:29 71 18 30 07/04/19 21:11 128/56 07/04/19 21:00 70 17 110/60 (77) 98 07/04/19 20:00 Mechanical Ventilator 07/04/19 20:00 30 07/04/19 20:00 68 07/04/19 20:00 98.1 72 18 123/56 (78) 98 07/04/19 19:00 78 16 128/56 (80) 98 07/04/19 18:55 72 18 30 07/04/19 18:30 71 17 125/56 (79) 98 07/04/19 18:00 70 18 136/60 (85) 98 07/04/19 17:30 70 18 126/59 (81) 98 07/04/19 17:00 71 15 136/59 (84) 98 07/04/19 16:56 71 19 30 07/04/19 16:30 68 16 125/86 (99) 97 07/04/19 16:00 Mechanical Ventilator 07/04/19 16:00 30 07/04/19 16:00 97.6 63 16 113/52 (72) 99 07/04/19 16:00 69 07/04/19 15:30 69 16 119/65 (83) 98 Intake and Output 07/04/19 07/05/19 19:00 07:00 Intake Total 2235.368 ml 1379 ml Output Total 725 ml 790 ml Balance 1510.368 ml 589 ml Intake Free Water 350 ml 175 ml IV Total 1175.368 ml 709 ml Tube Feeding 680 ml 495 ml Other 30 ml Output Urine Total 725 ml 690 ml Stool Total 100 ml # Bowel Movements 1 Laboratory Tests 07/05/19 04:00: White Blood Count 9.0, Red Blood Count 3.33L, Hemoglobin 9.2L, Hematocrit 29.0L , Mean Corpuscular Volume 87, Mean Corpuscular Hemoglobin 27.7, Mean Corpuscular Hemoglobin Concent 31.9L, Red Cell Distribution Width 15.1H, Platelet Count 328, Mean Platelet Volume 7.9, Neutrophils (%) (Auto) 65.0, Lymphocytes (%) (Auto) 17.3L, Monocytes (%) (Auto) 10.3H, Eosinophils (%) (Auto ) 6.1H, Basophils (%) (Auto) 1.3, Sodium Level 141, Potassium Level 4.8, Chloride Level 110H, Carbon Dioxide Level 24, Anion Gap 7, Blood Urea Nitrogen 37H, Creatinine 1.1, Estimat Glomerular Filtration Rate > 60, Glucose Level 97, Calcium Level 8.0L, Phosphorus Level 3.5, Magnesium Level 2.1, Total Bilirubin 0.2, Aspartate Amino Transf (AST/SGOT) 14L, Alanine Aminotransferase (ALT/SGPT) 16, Alkaline Phosphatase 200H, Total Protein 6.2L, Albumin 2.0L, Globulin 4.2, Albumin/Globulin Ratio 0.5L Height (Feet): 5 Height (Inches): 8.00 Weight (Pounds): 151 General Appearance: lethargic EENT: normal ENT inspection Neck: normal alignment Cardiovascular: normal peripheral pulses, normal rate, regular rhythm Respiratory/Chest: chest wall non-tender, lungs clear, normal breath sounds Abdomen: normal bowel sounds, non tender, soft Extremities: normal inspection Edema: no edema noted Arm (L), no edema noted Arm (R), no edema noted Leg (L), no edema noted Leg (R), no edema noted Pedal (L), no edema noted Pedal (R), no edema noted Generalized Neurologic: motor weakness Skin: normal pigmentation, warm/dry Gato Viveros DO Jul 05, 2019 15:11
--- NOTE | 2019-07-05 15:51 | NUR ---
NURSE NOTES: Repositioned patient and oral care provided.
[2019-07-05] MEDS ORDERED: NS 500ML ONE (16:26)
[2019-07-05] MEDS ORDERED: Tubing IV Secondary IV ONE (16:26)
--- NOTE | 2019-07-05 18:00 | NUR ---
NURSE NOTES: Bed bath and oral care provided. Wound pictures are taken and uploaded.
--- NOTE | 2019-07-05 19:08 | NUR ---
RESPIRATORY NOTE: Received pt on AC 16, 600VT, 35%, no PEEP. Pt is trach-dependent w/ a cuffed, Portex 8 tube. Pt flat effect, responds to stimuli. B/S nora. rhonchi, sxn small amounts of thick, pale-yellow secretions. Vent plugged into red outlet, ambubag at bedside. Pt in no apparent distress at this time. Will continue to monitor pt.
--- NOTE | 2019-07-05 19:30 | NUR ---
NURSE NOTES: Patient transferred to [facility] from ICU.
--- NOTE | 2019-07-05 19:40 | NUR ---
HAND-OFF: Report given to ODILIA Carrington @ [facility]. Endorsed plan of care.
--- NOTE | 2019-07-05 19:43 | NUR ---
NURSE NOTES: Patient received from Eom RN. Patient is obtunded, he opens eyes spontaneously and to painful stimulus. Patient is ventilator dependant with portex 8, AC 16, 600tv, 30% FiO2 and no peep. Patient is contracted at upper and lower extremities. No free independent movement from patient. Gt noted and running Osmolite 1.5 at 55ml/hr with flush orders. minimal residual of 10ml. Patient does have minor skin erosions around skin. generalized edema noted. Patient has an ALEXI PICC that is TKO. Patient [id number], SCD's are on, side rails are padded. gag reflex noted upon suctioning. minimal secretions. Ventilator inspected, suctioned inspected, all safety measures are in place. Will continue to monitor
[2019-07-05] MEDS: levETIRAcetam 500mg/5ml Liquid NG SCH (20:34)
[2019-07-05] MEDS: Dyna-Hex 2% Top Sol 2oz TOPIC SCH (20:34)
[2019-07-05] MEDS: Zinc Oxide Oint 2oz TOPIC SCH (20:36)
--- NOTE | 2019-07-05 22:00 | NUR ---
NURSE NOTES: Patient repositioned and given oral care. Lenny given X 1 packet. Patients rectal tube remains in place without any leaks, and draining well. Patient remains afebrile but is warm too touch. HR is NSR in the 70s. Patients BP has remained stable. No acute distress at this time.
--- NOTE | 2019-07-05 22:48 | Cardiology Progress Note ---
Assessment/Plan Assessment/Plan his cardiac rhythm is stable Subjective Subjective The patient is deeply comatose on ventilator Objective Last 24 Hour Vital Signs Date Time Temp Pulse Resp B/P (MAP) Pulse Ox O2 Delivery O2 Flow Rate FiO2 07/05/19 20:49 71 17 35 07/05/19 20:36 96/54 07/05/19 20:00 35 07/05/19 20:00 Mechanical Ventilator 07/05/19 20:00 75 07/05/19 20:00 99.5 75 19 126/60 (82) 96 07/05/19 19:05 69 18 35 07/05/19 19:00 72 19 111/54 (73) 96 07/05/19 18:00 73 23 148/70 (96) 96 07/05/19 17:14 70 19 35 07/05/19 17:00 65 18 86/40 (55) 98 07/05/19 16:00 99.0 68 16 119/52 (74) 99 07/05/19 16:00 69 07/05/19 16:00 35 07/05/19 16:00 Mechanical Ventilator 07/05/19 15:01 69 17 35 07/05/19 15:00 67 18 114/62 (79) 98 07/05/19 14:00 63 16 100/46 (64) 99 07/05/19 13:06 67 16 35 07/05/19 13:00 66 17 111/56 (74) 99 07/05/19 12:00 65 07/05/19 12:00 97.5 65 16 111/59 (76) 97 07/05/19 12:00 Mechanical Ventilator 07/05/19 12:00 35 07/05/19 11:00 63 16 108/65 (79) 99 07/05/19 10:45 64 17 35 07/05/19 10:00 63 16 106/44 (64) 99 07/05/19 09:00 70 17 150/79 (102) 98 07/05/19 08:55 62 16 35 07/05/19 08:00 68 07/05/19 08:00 Mechanical Ventilator 07/05/19 08:00 97.2 69 16 130/58 (82) 98 07/05/19 08:00 35 07/05/19 07:00 72 18 127/57 (80) 100 07/05/19 06:45 70 16 35 10/26/19 06:00 70 16 137/59 (85) 97 07/05/19 05:03 65 16 35 07/05/19 05:00 66 16 129/70 (89) 96 07/05/19 04:00 Mechanical Ventilator 07/05/19 04:00 67 07/05/19 04:00 35 07/05/19 04:00 99.6 59 16 100/51 (67) 100 07/05/19 03:00 68 16 114/53 (73) 100 07/05/19 02:43 69 17 30 07/05/19 02:00 70 17 129/70 (89) 99 07/05/19 01:00 69 20 134/67 (89) 98 07/05/19 00:49 68 21 30 07/05/19 00:30 66 17 89/45 (60) 98 07/05/19 00:00 30 07/05/19 00:00 68 18 105/51 (69) 98 07/05/19 00:00 72 07/05/19 00:00 Mechanical Ventilator 07/04/19 23:00 67 17 139/65 (89) 98 General Appearance: on vent EENT: other Neck: limited range of motion Rhythm: SB Cardiovascular: normal rate Respiratory/Chest: rhonchi - bilaterally Abdomen: soft Intake and Output 07/04/19 07/05/19 18:59 06:59 Intake Total 2129.608 ml 1491 ml Output Total 725 ml 680 ml Balance 1404.608 ml 811 ml Intake Free Water 350 ml 175 ml IV Total 1064.608 ml 821 ml Tube Feeding 685 ml 495 ml Other 30 ml Output Urine Total 725 ml 680 ml # Bowel Movements 1 Laboratory Tests Test 07/05/19 04:00 White Blood Count 9.0 K/UL (4.8-10.8) Red Blood Count 3.33 M/UL (4.70-6.10) L Hemoglobin 9.2 G/DL (14.2-18.0) L Hematocrit 29.0 % (42.0-52.0) L Mean Corpuscular Volume 87 FL (80-99) Mean Corpuscular Hemoglobin 27.7 PG (27.0-31.0) Mean Corpuscular Hemoglobin Concent 31.9 G/DL (32.0-36.0) L Red Cell Distribution Width 15.1 % (11.6-14.8) H Platelet Count 328 K/UL (150-450) Mean Platelet Volume 7.9 FL (6.5-10.1) Neutrophils (%) (Auto) 65.0 % (45.0-75.0) Lymphocytes (%) (Auto) 17.3 % (20.0-45.0) L Monocytes (%) (Auto) 10.3 % (1.0-10.0) H Eosinophils (%) (Auto) 6.1 % (0.0-3.0) H Basophils (%) (Auto) 1.3 % (0.0-2.0) Sodium Level 141 MMOL/L (136-145) Potassium Level 4.8 MMOL/L (3.5-5.1) Chloride Level 110 MMOL/L (98-107) H Carbon Dioxide Level 24 MMOL/L (21-32) Anion Gap 7 mmol/L (5-15) Blood Urea Nitrogen 37 mg/dL (7-18) H Creatinine 1.1 MG/DL (0.55-1.30) Estimat Glomerular Filtration Rate > 60 mL/min (>60) Glucose Level 97 MG/DL (74-106) Calcium Level 8.0 MG/DL (8.5-10.1) L Phosphorus Level 3.5 MG/DL (2.5-4.9) Magnesium Level 2.1 MG/DL (1.8-2.4) Total Bilirubin 0.2 MG/DL (0.2-1.0) Aspartate Amino Transf (AST/SGOT) 14 U/L (15-37) L Alanine Aminotransferase (ALT/SGPT) 16 U/L (12-78) Alkaline Phosphatase 200 U/L (46-116) H Total Protein 6.2 G/DL (6.4-8.2) L Albumin 2.0 G/DL (3.4-5.0) L Globulin 4.2 g/dL Albumin/Globulin Ratio 0.5 (1.0-2.7) L Rowena Means MD Jul 05, 2019 22:48
[2019-07-06] VITALS (8 sets, daily range): BP systolic 99–128; BP diastolic 44–59
--- NOTE | 2019-07-06 00:15 | NUR ---
NURSE NOTES: Repositioned and given oral care. Patients Vitals remaine stable, will continue to monitor.
--- NOTE | 2019-07-06 02:30 | Progress Note ---
DATE: 07/05/2019 SUBJECTIVE: The patient had an EEG yesterday, which was abnormal revealing bilateral periodic epileptic discharges. He still is comatose. I am waiting for the report. PHYSICAL EXAMINATION: VITAL SIGNS: The blood pressure is 111/59, pulse is 67, respiratory rate is 16, on the respirator, and FiO2 is 35%. NEUROLOGIC EXAMINATION: MENTAL STATUS: He is still comatose. He does not open eyes. He does not respond to commands. CRANIAL NERVES: CRANIAL NERVE II: No response to visual threat. CRANIAL NERVES III, IV, AND : The eyes are in the midline and pupils were approximately 3 mm, slightly larger than before and light reactive. CRANIAL NERVE V: Corneal sensation was absent. CRANIAL NERVE VII: Not elicitable. CRANIAL NERVES VIII THROUGH XII: Could not be tested. MUSCLE EXAMINATION: Revealed he has some extensor movements of his left upper extremity, but nothing in the lower extremities. He does expect some withdrawal on both lower extremities. He has some minimal movement in the right upper extremity. Reflexes are 0 in the upper and lower extremities with upgoing toes bilaterally. IMPRESSION: Impression has not changed on him. He can continue his medication. I could obtain a CT scan of the brain and I noted that he did not have herpes simplex encephalitis. PLAN: 1. Localizing his problems, the plan is we will obtain MRI scan of the brain with and without contrast. 2. Continue his medications. Jd Gaffney MD DR: PENNIE JOB#: [id number] CC:
--- NOTE | 2019-07-06 03:43 | NUR ---
NURSE NOTES: Patient cleaned and repositioned. Patients blood pressure remains stable at this time. No acute distress at this time. Patient is stable. NAD will continue to monitor
--- NOTE | 2019-07-06 04:00 | NUR ---
NURSE NOTES: Patient cleaned. Feeds on hold for Synthroid medications this morning. Patients Vitals have remained stable, no fever. rectal tube draining well. No new changes at this time.
[2019-07-06] MEDS: Amikacin 500 MG in NS 110 ML IV SCH (04:08)
[2019-07-06] MEDS: PHENobarbital Elixir 30mg/7.5ml NG SCH ×3 (05:12→22:10)
[2019-07-06] MEDS: Midodrine 10mg tab GT SCH ×3 (05:13→22:00)
[2019-07-06] MEDS: Sucralfate 1gm tab GT SCH ×3 (05:13→22:09)
--- NOTE | 2019-07-06 06:21 | NUR ---
NURSE NOTES: Repositioned patient. PICC line dressing changed using aseptic technique. Feeds remains on hold due to Synthroid. Patient is afebrile and BP is stable. Patient remains clean and dry. 150 ml output from rectal tube. Will continue to monitor.
[2019-07-06 06:47] LABS: BASOPHILS % (AUTO) 1.4 % (0.0-2.0); EOSINOPHILS % (AUTO) 6.2 % (0.0-3.0); HEMATOCRIT 27.9 % (42.0-52.0); HEMOGLOBIN 8.9 G/DL (14.2-18.0); LYMPHOCYTES % (AUTO) 25.2 % (20.0-45.0); MEAN CORPUSCULAR VOLUME 87 FL (80-99); MONOCYTES % (AUTO) 10.6 % (1.0-10.0); NEUTROPHILS % (AUTO) 56.6 % (45.0-75.0); PLATELET COUNT 319 K/UL (150-450); RED CELL DISTRIBUTION WIDTH 15.6 % (11.6-14.8); WHITE BLOOD COUNT 8.2 K/UL (4.8-10.8)
--- NOTE | 2019-07-06 07:15 | NUR ---
HAND-OFF: Report given to Deborah HARTLEY.
--- NOTE | 2019-07-06 07:16 | NUR ---
NURSE NOTES: Received patient in bed. Vent dependent. In no apparent distress. Will continue plan of care.
[2019-07-06 07:17] LABS: ANION GAP 10 mmol/L (5-15); BLOOD UREA NITROGEN 47 mg/dL (7-18); CALCIUM 8.4 MG/DL (8.5-10.1); CARBON DIOXIDE 24 MMOL/L (21-32); CHLORIDE 110 MMOL/L (98-107); CREATININE 1.2 MG/DL (0.55-1.30); POTASSIUM 4.9 MMOL/L (3.5-5.1); SODIUM 143 MMOL/L (136-145)
--- NOTE | 2019-07-06 07:37 | Pulmonology Progress Note ---
Assessment/Plan Assessment/Plan ASSESSMENT Sepsis Septic shock, likely secondary to UTI and pneumonia UTI/pyelonephritis with Proteus and Providencia Pneumonia with pseudomonas and Proteus Acute on chronic respiratory failure VDRF/tracheostomy status Dysphagia, feeding by G-tube G tube leaking with cellulitis, s/p replacement at bedside Status epilepticus Severe encephalopathy with persistent vegetative state Mobitz 1 2nd degree AV block - no recurrence Anemia of chronic disease GI bleeding s/p EGD ( distal esoph stricture requiring dilatation, gastritis, ? healing gastric ulcer) s/p colonoscopy ( diverticulosis, internal hemorrhoids) Electrolyte imbalance KAYLENE Hypothyroidism with elevated TSH Thrombocytopenia improving Severe protein calorie malnutrition PLAN OF CARE in [facility] now off pressors Vent support, pulmonary toilet Follow-up with CXR and ABG Abx as per ID Echo with EF 55-60% BP support with midodrine no recurrence of AV block, HR stable, cardio on board off IVF monitor renal parameters, lytes , correct lytes as needed; nephro on board initially RIJ CL, dc and PICC line placed increase free water via G tube seizure precautions anticonvulsants( Keppra, Dilantin, Phenobarbital) as per neuro and Ativan PRN , monitor levels - perr neuro EEG noted, severe encephalopathy aspiration precaution , G-tube feeding G tube site care wound cx G tube site colonizer s/p replacement of G tube at bedside GI on board PPI and Carafate Protein supplement as per RD recommendation s/p EGD and colonoscopy stool OB + Monitor H&H with goal to keep Hgb above 7 , s/p transfusion Monitor PLT count , resolved Elevated TSH initially, Levothyroxine dose increased , fup with TSH BS stable, [id number] supportive care case discussed and evaluated by supervising physician Subjective Allergies: Coded Allergies: NO KNOWN DRUG ALLERGIES (Verified Allergy, Unknown, 09/11/16) Subjective transferred to [facility] off pressors BP remains stable no signs of resp distress remains afebrile , leuk resolved HH at baseline Objective Last 24 Hour Vital Signs Date Time Temp Pulse Resp B/P (MAP) Pulse Ox O2 Delivery O2 Flow Rate FiO2 07/06/19 07:16 61 16 35 07/06/19 05:13 70 16 35 07/06/19 04:00 35 07/06/19 04:00 69 07/06/19 04:00 Mechanical Ventilator 07/06/19 04:00 99.0 69 16 100/46 (64) 100 07/06/19 02:37 72 19 35 07/06/19 01:06 67 16 35 07/06/19 00:00 35 07/06/19 00:00 71 07/06/19 00:00 71 16 99/44 (62) 96 07/06/19 00:00 Mechanical Ventilator 07/05/19 22:53 68 16 35 07/05/19 20:49 71 17 35 07/05/19 20:36 96/54 07/05/19 20:00 35 07/05/19 20:00 Mechanical Ventilator 07/05/19 20:00 75 07/05/19 20:00 99.5 75 19 126/60 (82) 96 07/05/19 19:05 69 18 35 07/05/19 19:00 72 19 111/54 (73) 96 07/05/19 18:00 73 23 148/70 (96) 96 07/05/19 17:14 70 19 35 07/05/19 17:00 65 18 86/40 (55) 98 07/05/19 16:00 99.0 68 16 119/52 (74) 99 07/05/19 16:00 69 07/05/19 16:00 35 07/05/19 16:00 Mechanical Ventilator 07/05/19 15:01 69 17 35 07/05/19 15:00 67 18 114/62 (79) 98 07/05/19 14:00 63 16 100/46 (64) 99 07/05/19 13:06 67 16 35 07/05/19 13:00 66 17 111/56 (74) 99 07/05/19 12:00 65 07/05/19 12:00 97.5 65 16 111/59 (76) 97 07/05/19 12:00 Mechanical Ventilator 07/05/19 12:00 35 07/05/19 11:00 63 16 108/65 (79) 99 07/05/19 10:45 64 17 35 07/05/19 10:00 63 16 106/44 (64) 99 07/05/19 09:00 70 17 150/79 (102) 98 07/05/19 08:55 62 16 35 07/05/19 08:00 68 07/05/19 08:00 Mechanical Ventilator 07/05/19 08:00 97.2 69 16 130/58 (82) 98 07/05/19 08:00 35 Intake and Output 07/05/19 07/06/19 19:00 07:00 Intake Total 1185.6 ml 572 ml Output Total 780 ml 1350 ml Balance 405.6 ml -778 ml Intake Free Water 175 ml 75 ml IV Total 350.6 ml 112 ml Tube Feeding 660 ml 385 ml Output Urine Total 730 ml 1200 ml Stool Total 50 ml 150 ml Objective General Appearance: in no acute distress, bedbound, on vent AC 600-16-35% , HEENT: normocephalic, atraumatic, anicteric, status post trach - Portex#8, secretions moderate amount, thick, yellow color Respiratory/Chest: bibasilar scattered crackles Cardiovascular: normal rate, regular rhythm SR on tele , LUE PICC intact Abdomen: normal bowel sounds, soft, non tender, G tube , rectal tube with diarrhea Extremities: no edema, pedal pulses normal Neurologic/Psychiatric: abnormal gait - bedridden , Left hemiparesis , responds to tactile stimuli only Musculoskeletal: atrophy - BLE Laboratory Tests 07/06/19 03:47: White Blood Count 8.2, Red Blood Count 3.20L, Hemoglobin 8.9L, Hematocrit 27.9L , Mean Corpuscular Volume 87, Mean Corpuscular Hemoglobin 27.9, Mean Corpuscular Hemoglobin Concent 31.9L, Red Cell Distribution Width 15.6H, Platelet Count 319, Mean Platelet Volume 7.2, Neutrophils (%) (Auto) 56.6, Lymphocytes (%) (Auto) 25.2, Monocytes (%) (Auto) 10.6H, Eosinophils (%) (Auto) 6.2H, Basophils (%) (Auto) 1.4, Sodium Level 143, Potassium Level 4.9, Chloride Level 110H, Carbon Dioxide Level 24, Anion Gap 10, Blood Urea Nitrogen 47H, Creatinine 1.2, Estimat Glomerular Filtration Rate 59.9, Glucose Level 108H, Calcium Level 8.4L Current Medications Medications (Trade) Dose Ordered Sig/Wanda Route PRN Reason Start Time Stop Time Status Last Admin Dose Admin Acetaminophen (Tylenol) 650 mg Q4H PRN GT fever (temp>100.5F) 06/29/19 19:33 07/29/19 19:32 06/30/19 18:54 Amikacin Protocol (Amikacin pharmacy to dose) 1 ea DAILY PRN MISC Per rx protocol 07/04/19 15:15 08/03/19 15:14 Amikacin Sulfate 500 mg/Sodium Chloride 112 ml @ 112 mls/hr Q36H IV 07/04/19 16:00 07/11/19 15:59 07/06/19 04:08 Chlorhexidine Gluconate (Jasmin-Hex 2%) 1 applic DAILY@2000 TOPIC 06/29/19 20:00 07/20/19 19:59 07/05/19 20:34 Lansoprazole (Prevacid) 30 mg EVERY 12 HOURS GT 07/06/19 09:00 07/31/19 17:59 Levetiracetam (Keppra) 1,000 mg Q12HR NG 07/05/19 21:00 08/04/19 20:59 07/05/19 20:34 Levothyroxine Sodium (Synthroid) 88 mcg DAILY@0630 GT 06/30/19 06:30 07/20/19 06:29 07/06/19 05:12 Lorazepam (Ativan 2mg/ml 1ml) 2 mg Q4H PRN IVP For Seizures 06/29/19 19:33 07/06/19 19:32 Midodrine (Pro-Amatine) 10 mg EVERY 8 HOURS GT 07/01/19 14:00 07/17/19 12:59 07/06/19 05:13 Ondansetron HCl (Zofran) 4 mg Q6H PRN IVP Nausea & Vomiting 06/29/19 19:33 07/29/19 19:32 Phenobarbital (PHENobarbital) 60 mg Q8HR NG 07/01/19 14:00 07/31/19 13:59 07/06/19 05:12 Phenytoin 200 mg/ Sodium Chloride 59 ml @ 118 mls/hr QHS IVPB 07/06/19 21:00 08/02/19 08:59 Polyethylene Glycol (Miralax) 17 gm DAILYPRN PRN GT Constipation 06/29/19 19:33 07/29/19 19:32 Sucralfate (Carafate) 1 gm EVERY 8 HOURS GT 06/29/19 22:00 07/21/19 08:59 07/06/19 05:13 Zinc Oxide (Zinc Oxide) 1 applic QHS TOPIC 06/29/19 21:00 07/21/19 08:59 07/05/19 20:36 Amina Garcia NP Jul 06, 2019 07:37
--- NOTE | 2019-07-06 07:56 | General Progress Note ---
Assessment/Plan Problem List: (1) Diabetes ICD Codes: E11.9 - Type 2 diabetes mellitus without complications SNOMED: 30856129 (2) HTN (hypertension) ICD Codes: I10 - Essential (primary) hypertension SNOMED: 39846114 (3) CVA (cerebral vascular accident) ICD Codes: I63.9 - Cerebral infarction, unspecified SNOMED: 321843605 (4) Severe protein-calorie malnutrition ICD Codes: E43 - Unspecified severe protein-calorie malnutrition SNOMED: 669999864 (5) Feeding by G-tube ICD Codes: Z93.1 - Gastrostomy status SNOMED: 509338397, 274950073 (6) Respiratory failure, xkuun-ml-fsvovug ICD Codes: J96.20 - Respiratory failure, nyxze-tc-puscdjn SNOMED: 62419753 (7) Anemia ICD Codes: D64.9 - Anemia, unspecified SNOMED: 678898835 (8) Chronic respiratory failure ICD Codes: J96.10 - Chronic respiratory failure, unspecified whether with hypoxia or hypercapnia SNOMED: 67349424 (9) Septic shock ICD Codes: A41.9 - Sepsis, unspecified organism; R65.21 - Severe sepsis with septic shock SNOMED: 05014104 (10) Alzheimer's dementia ICD Codes: G30.9 - Alzheimer's disease, unspecified SNOMED: 45552539 (11) Severe sepsis ICD Codes: A41.9 - Sepsis, unspecified organism; R65.20 - Severe sepsis without septic shock SNOMED: 56273671 (12) Hypothyroidism ICD Codes: E03.9 - Hypothyroidism, unspecified SNOMED: 25902335 Status: stable, progressing Assessment/Plan: vent abx wean pressor cbc bmp am tranfuse prn neuro eval ltach eval Subjective Constitutional: Reports: weakness Allergies: Coded Allergies: NO KNOWN DRUG ALLERGIES (Verified Allergy, Unknown, 09/11/16) All Systems: reviewed and negative except above Subjective trach vent altered Objective Last 24 Hour Vital Signs Date Time Temp Pulse Resp B/P (MAP) Pulse Ox O2 Delivery O2 Flow Rate FiO2 07/06/19 07:16 61 16 35 07/06/19 05:13 70 16 35 07/06/19 04:00 35 07/06/19 04:00 69 07/06/19 04:00 Mechanical Ventilator 07/06/19 04:00 99.0 69 16 100/46 (64) 100 07/06/19 02:37 72 19 35 07/06/19 01:06 67 16 35 07/06/19 00:00 35 07/06/19 00:00 71 07/06/19 00:00 71 16 99/44 (62) 96 07/06/19 00:00 Mechanical Ventilator 07/05/19 22:53 68 16 35 07/05/19 20:49 71 17 35 07/05/19 20:36 96/54 07/05/19 20:00 35 07/05/19 20:00 Mechanical Ventilator 07/05/19 20:00 75 07/05/19 20:00 99.5 75 19 126/60 (82) 96 07/05/19 19:05 69 18 35 07/05/19 19:00 72 19 111/54 (73) 96 07/05/19 18:00 73 23 148/70 (96) 96 07/05/19 17:14 70 19 35 07/05/19 17:00 65 18 86/40 (55) 98 07/05/19 16:00 99.0 68 16 119/52 (74) 99 07/05/19 16:00 69 07/05/19 16:00 35 07/05/19 16:00 Mechanical Ventilator 07/05/19 15:01 69 17 35 07/05/19 15:00 67 18 114/62 (79) 98 07/05/19 14:00 63 16 100/46 (64) 99 07/05/19 13:06 67 16 35 07/05/19 13:00 66 17 111/56 (74) 99 07/05/19 12:00 65 07/05/19 12:00 97.5 65 16 111/59 (76) 97 07/05/19 12:00 Mechanical Ventilator 07/05/19 12:00 35 07/05/19 11:00 63 16 108/65 (79) 99 07/05/19 10:45 64 17 35 07/05/19 10:00 63 16 106/44 (64) 99 07/05/19 09:00 70 17 150/79 (102) 98 07/05/19 08:55 62 16 35 07/05/19 08:00 68 07/05/19 08:00 Mechanical Ventilator 07/05/19 08:00 97.2 69 16 130/58 (82) 98 07/05/19 08:00 35 Intake and Output 07/05/19 07/06/19 19:00 07:00 Intake Total 1185.6 ml 572 ml Output Total 780 ml 1350 ml Balance 405.6 ml -778 ml Intake Free Water 175 ml 75 ml IV Total 350.6 ml 112 ml Tube Feeding 660 ml 385 ml Output Urine Total 730 ml 1200 ml Stool Total 50 ml 150 ml Laboratory Tests 07/06/19 03:47: White Blood Count 8.2, Red Blood Count 3.20L, Hemoglobin 8.9L, Hematocrit 27.9L , Mean Corpuscular Volume 87, Mean Corpuscular Hemoglobin 27.9, Mean Corpuscular Hemoglobin Concent 31.9L, Red Cell Distribution Width 15.6H, Platelet Count 319, Mean Platelet Volume 7.2, Neutrophils (%) (Auto) 56.6, Lymphocytes (%) (Auto) 25.2, Monocytes (%) (Auto) 10.6H, Eosinophils (%) (Auto) 6.2H, Basophils (%) (Auto) 1.4, Sodium Level 143, Potassium Level 4.9, Chloride Level 110H, Carbon Dioxide Level 24, Anion Gap 10, Blood Urea Nitrogen 47H, Creatinine 1.2, Estimat Glomerular Filtration Rate 59.9, Glucose Level 108H, Calcium Level 8.4L Height (Feet): 5 Height (Inches): 8.00 Weight (Pounds): 152 General Appearance: lethargic EENT: normal ENT inspection Neck: normal alignment Cardiovascular: normal peripheral pulses, normal rate, regular rhythm Respiratory/Chest: chest wall non-tender, lungs clear, normal breath sounds Abdomen: normal bowel sounds, non tender, soft Extremities: normal inspection Edema: no edema noted Arm (L), no edema noted Arm (R), no edema noted Leg (L), no edema noted Leg (R), no edema noted Pedal (L), no edema noted Pedal (R), no edema noted Generalized Neurologic: motor weakness Skin: normal pigmentation, warm/dry Gato Viveros DO Jul 06, 2019 07:56
[2019-07-06] MEDS: levETIRAcetam 500mg/5ml Liquid NG SCH ×2 (08:24→20:17)
--- NOTE | 2019-07-06 08:47 | NUR ---
NURSE NOTES: Amina Garcia NP said to collect specimen for cdiff.
--- NOTE | 2019-07-06 09:00 | NUR ---
NURSE NOTES: Contact isolation observed.
--- NOTE | 2019-07-06 09:28 | Diagnostic Imaging Report ---
EXAM: XR Chest, 1 View CLINICAL HISTORY: Shortness of breath TECHNIQUE: Frontal view of the chest. COMPARISON: Chest x-ray dated 07 05 19 FINDINGS: Lungs: Pulmonary vascular congestion. Supplemental atelectasis versus infiltrates in the lung bases. Pleural space: Bilateral moderate layering pleural effusions, unchanged. Heart: Unremarkable. No cardiomegaly. Mediastinum: Unremarkable. Bones joints: Unremarkable. Vasculature: Atherosclerotic calcifications are noted within the aortic arch. Tubes, lines and devices: Stable positioning of the left-sided PICC with tip in the SVC right atrial junction. Stable positioning of a tracheostomy tube. Telemetry leads overlie the thorax. IMPRESSION: No significant interval change from the prior chest x-ray, with persistent pulmonary vascular congestion, layering pleural effusions, and subsegmental atelectasis versus infiltrates in the lung bases.
--- NOTE | 2019-07-06 11:17 | General Progress Note ---
Assessment/Plan Problem List: (1) [facility] resident ICD Codes: Z59.3 - Problems related to living in residential institution SNOMED: 043558745 (2) GT SITE LEAKING (3) Alzheimer's dementia ICD Codes: G30.9 - Alzheimer's disease, unspecified SNOMED: 13269996 (4) Upper GI bleed ICD Codes: K92.2 - Upper gastrointestinal hemorrhage SNOMED: 60427492 (5) Severe erosive esophagitis (6) Malfunction of gastrostomy tube ICD Codes: K94.23 - Gastrostomy malfunction SNOMED: 259066397 (7) Chronic respiratory failure ICD Codes: J96.10 - Chronic respiratory failure, unspecified whether with hypoxia or hypercapnia SNOMED: 17617993 (8) Anemia ICD Codes: D64.9 - Anemia, unspecified SNOMED: 031625371 Status: stable, progressing Assessment/Plan: stable H&H s/p one unit PRBC yesterday dietitian in put appreciated no obvious GIB per nurses ppi GTF abx per ID ICU care Subjective ROS Limited/Unobtainable: No Allergies: Coded Allergies: NO KNOWN DRUG ALLERGIES (Verified Allergy, Unknown, 09/11/16) Subjective only on low rate pressor GTF running Objective Last 24 Hour Vital Signs Date Time Temp Pulse Resp B/P (MAP) Pulse Ox O2 Delivery O2 Flow Rate FiO2 07/06/19 09:05 65 16 35 07/06/19 08:00 Mechanical Ventilator 07/06/19 08:00 98.6 66 16 127/59 (81) 99 07/06/19 08:00 35 07/06/19 07:49 64 07/06/19 07:16 61 16 35 07/06/19 05:13 70 16 35 07/06/19 04:00 35 07/06/19 04:00 69 07/06/19 04:00 Mechanical Ventilator 07/06/19 04:00 99.0 69 16 100/46 (64) 100 07/06/19 02:37 72 19 35 07/06/19 01:06 67 16 35 07/06/19 00:00 35 07/06/19 00:00 71 07/06/19 00:00 71 16 99/44 (62) 96 07/06/19 00:00 Mechanical Ventilator 07/05/19 22:53 68 16 35 07/05/19 20:49 71 17 35 07/05/19 20:36 96/54 07/05/19 20:00 35 07/05/19 20:00 Mechanical Ventilator 07/05/19 20:00 75 07/05/19 20:00 99.5 75 19 126/60 (82) 96 07/05/19 19:05 69 18 35 07/05/19 19:00 72 19 111/54 (73) 96 07/05/19 18:00 73 23 148/70 (96) 96 07/05/19 17:14 70 19 35 07/05/19 17:00 65 18 86/40 (55) 98 07/05/19 16:00 99.0 68 16 119/52 (74) 99 07/05/19 16:00 69 07/05/19 16:00 35 07/05/19 16:00 Mechanical Ventilator 07/05/19 15:01 69 17 35 07/05/19 15:00 67 18 114/62 (79) 98 07/05/19 14:00 63 16 100/46 (64) 99 07/05/19 13:06 67 16 35 07/05/19 13:00 66 17 111/56 (74) 99 07/05/19 12:00 65 07/05/19 12:00 97.5 65 16 111/59 (76) 97 07/05/19 12:00 Mechanical Ventilator 07/05/19 12:00 35 Intake and Output 07/05/19 07/06/19 19:00 07:00 Intake Total 1185.6 ml 572 ml Output Total 780 ml 1350 ml Balance 405.6 ml -778 ml Intake Free Water 175 ml 75 ml IV Total 350.6 ml 112 ml Tube Feeding 660 ml 385 ml Output Urine Total 730 ml 1200 ml Stool Total 50 ml 150 ml Laboratory Tests 07/06/19 03:47: White Blood Count 8.2, Red Blood Count 3.20L, Hemoglobin 8.9L, Hematocrit 27.9L , Mean Corpuscular Volume 87, Mean Corpuscular Hemoglobin 27.9, Mean Corpuscular Hemoglobin Concent 31.9L, Red Cell Distribution Width 15.6H, Platelet Count 319, Mean Platelet Volume 7.2, Neutrophils (%) (Auto) 56.6, Lymphocytes (%) (Auto) 25.2, Monocytes (%) (Auto) 10.6H, Eosinophils (%) (Auto) 6.2H, Basophils (%) (Auto) 1.4, Sodium Level 143, Potassium Level 4.9, Chloride Level 110H, Carbon Dioxide Level 24, Anion Gap 10, Blood Urea Nitrogen 47H, Creatinine 1.2, Estimat Glomerular Filtration Rate 59.9, Glucose Level 108H, Calcium Level 8.4L Height (Feet): 5 Height (Inches): 8.00 Weight (Pounds): 152 General Appearance: no apparent distress EENT: normal ENT inspection Neck: supple Cardiovascular: normal rate Respiratory/Chest: decreased breath sounds Abdomen: normal bowel sounds, non tender, soft Extremities: non-tender Vitaliy Wilson MD Jul 06, 2019 11:17
--- NOTE | 2019-07-06 11:39 | Nephrology Progress Note ---
Assessment/Plan Problem List: (1) Septic shock (2) Hypothyroidism (3) Upper GI bleed (4) Respiratory failure, [id number] (5) Anemia Assessment Sepsis Shock on pressors GI Bleed Low Na and high K UTI HypoThyroidism Tracheostomy dependence Respiratory failure, [id number]-bf-[id number] Alzheimer's Feeding by G-tube Plan today off pressors monitor dilantin and phenobarb level- med mgt for sz per neuro Albumin bolus prn as Cr rising consider transfusion as needed On Midodrine On GT feeding fluid challenge as needed adjust IV fluids transfuse as needed Monitor lytes and renal parametrs urine studies per orders Subjective ROS Limited/Unobtainable: No Objective Objective Last 24 Hour Vital Signs Date Time Temp Pulse Resp B/P (MAP) Pulse Ox O2 Delivery O2 Flow Rate FiO2 07/06/19 11:18 70 17 35 07/06/19 09:05 65 16 35 07/06/19 08:00 Mechanical Ventilator 07/06/19 08:00 98.6 66 16 127/59 (81) 99 07/06/19 08:00 35 07/06/19 07:49 64 07/06/19 07:16 61 16 35 07/06/19 05:13 70 16 35 07/06/19 04:00 35 07/06/19 04:00 69 07/06/19 04:00 Mechanical Ventilator 07/06/19 04:00 99.0 69 16 100/46 (64) 100 07/06/19 02:37 72 19 35 07/06/19 01:06 67 16 35 07/06/19 00:00 35 07/06/19 00:00 71 07/06/19 00:00 71 16 99/44 (62) 96 07/06/19 00:00 Mechanical Ventilator 07/05/19 22:53 68 16 35 07/05/19 20:49 71 17 35 07/05/19 20:36 96/54 07/05/19 20:00 35 07/05/19 20:00 Mechanical Ventilator 07/05/19 20:00 75 07/05/19 20:00 99.5 75 19 126/60 (82) 96 07/05/19 19:05 69 18 35 07/05/19 19:00 72 19 111/54 (73) 96 07/05/19 18:00 73 23 148/70 (96) 96 07/05/19 17:14 70 19 35 07/05/19 17:00 65 18 86/40 (55) 98 07/05/19 16:00 99.0 68 16 119/52 (74) 99 07/05/19 16:00 69 07/05/19 16:00 35 07/05/19 16:00 Mechanical Ventilator 07/05/19 15:01 69 17 35 07/05/19 15:00 67 18 114/62 (79) 98 07/05/19 14:00 63 16 100/46 (64) 99 07/05/19 13:06 67 16 35 07/05/19 13:00 66 17 111/56 (74) 99 07/05/19 12:00 65 07/05/19 12:00 97.5 65 16 111/59 (76) 97 07/05/19 12:00 Mechanical Ventilator 07/05/19 12:00 35 Intake and Output 07/05/19 07/06/19 19:00 07:00 Intake Total 1185.6 ml 572 ml Output Total 780 ml 1350 ml Balance 405.6 ml -778 ml Intake Free Water 175 ml 75 ml IV Total 350.6 ml 112 ml Tube Feeding 660 ml 385 ml Output Urine Total 730 ml 1200 ml Stool Total 50 ml 150 ml Laboratory Tests 07/06/19 03:47: White Blood Count 8.2, Red Blood Count 3.20L, Hemoglobin 8.9L, Hematocrit 27.9L , Mean Corpuscular Volume 87, Mean Corpuscular Hemoglobin 27.9, Mean Corpuscular Hemoglobin Concent 31.9L, Red Cell Distribution Width 15.6H, Platelet Count 319, Mean Platelet Volume 7.2, Neutrophils (%) (Auto) 56.6, Lymphocytes (%) (Auto) 25.2, Monocytes (%) (Auto) 10.6H, Eosinophils (%) (Auto) 6.2H, Basophils (%) (Auto) 1.4, Sodium Level 143, Potassium Level 4.9, Chloride Level 110H, Carbon Dioxide Level 24, Anion Gap 10, Blood Urea Nitrogen 47H, Creatinine 1.2, Estimat Glomerular Filtration Rate 59.9, Glucose Level 108H, Calcium Level 8.4L Height (Feet): 5 Height (Inches): 8.00 Weight (Pounds): 152 General Appearance: no apparent distress Cardiovascular: normal rate Respiratory/Chest: decreased breath sounds Abdomen: distended Objective no change Sav Salvador MD Jul 06, 2019 11:39
--- NOTE | 2019-07-06 12:42 | Surgery Progress Note ---
Surgery Progress Note Subjective Additional Comments Downgraded from ICU. Exam stable. Ill-appearing. Transfuse PRBC. Objective Last 24 Hour Vital Signs Date Time Temp Pulse Resp B/P (MAP) Pulse Ox O2 Delivery O2 Flow Rate FiO2 07/06/19 12:00 Mechanical Ventilator 07/06/19 12:00 98.5 68 16 128/59 (82) 98 07/06/19 12:00 35 07/06/19 11:18 70 17 35 07/06/19 09:05 65 16 35 07/06/19 08:00 Mechanical Ventilator 07/06/19 08:00 98.6 66 16 127/59 (81) 99 07/06/19 08:00 35 07/06/19 07:49 64 07/06/19 07:16 61 16 35 07/06/19 05:13 70 16 35 07/06/19 04:00 35 07/06/19 04:00 69 07/06/19 04:00 Mechanical Ventilator 07/06/19 04:00 99.0 69 16 100/46 (64) 100 07/06/19 02:37 72 19 35 07/06/19 01:06 67 16 35 07/06/19 00:00 35 07/06/19 00:00 71 07/06/19 00:00 71 16 99/44 (62) 96 07/06/19 00:00 Mechanical Ventilator 07/05/19 22:53 68 16 35 07/05/19 20:49 71 17 35 07/05/19 20:36 96/54 07/05/19 20:00 35 07/05/19 20:00 Mechanical Ventilator 07/05/19 20:00 75 07/05/19 20:00 99.5 75 19 126/60 (82) 96 07/05/19 19:05 69 18 35 07/05/19 19:00 72 19 111/54 (73) 96 07/05/19 18:00 73 23 148/70 (96) 96 07/05/19 17:14 70 19 35 07/05/19 17:00 65 18 86/40 (55) 98 07/05/19 16:00 99.0 68 16 119/52 (74) 99 07/05/19 16:00 69 07/05/19 16:00 35 07/05/19 16:00 Mechanical Ventilator 07/05/19 15:01 69 17 35 10/26/19 15:00 67 18 114/62 (79) 98 07/05/19 14:00 63 16 100/46 (64) 99 07/05/19 13:06 67 16 35 07/05/19 13:00 66 17 111/56 (74) 99 I&O Intake and Output 07/05/19 07/06/19 19:00 07:00 Intake Total 1185.6 ml 572 ml Output Total 780 ml 1350 ml Balance 405.6 ml -778 ml Intake Free Water 175 ml 75 ml IV Total 350.6 ml 112 ml Tube Feeding 660 ml 385 ml Output Urine Total 730 ml 1200 ml Stool Total 50 ml 150 ml Dressing: dry Wound: clean Cardiovascular: RSR Respiratory: clear Abdomen: soft, present bowel sounds Extremities: no cyanosis Laboratory Tests Test 07/06/19 03:47 White Blood Count 8.2 K/UL (4.8-10.8) Red Blood Count 3.20 M/UL (4.70-6.10) L Hemoglobin 8.9 G/DL (14.2-18.0) L Hematocrit 27.9 % (42.0-52.0) L Mean Corpuscular Volume 87 FL (80-99) Mean Corpuscular Hemoglobin 27.9 PG (27.0-31.0) Mean Corpuscular Hemoglobin Concent 31.9 G/DL (32.0-36.0) L Red Cell Distribution Width 15.6 % (11.6-14.8) H Platelet Count 319 K/UL (150-450) Mean Platelet Volume 7.2 FL (6.5-10.1) Neutrophils (%) (Auto) 56.6 % (45.0-75.0) Lymphocytes (%) (Auto) 25.2 % (20.0-45.0) Monocytes (%) (Auto) 10.6 % (1.0-10.0) H Eosinophils (%) (Auto) 6.2 % (0.0-3.0) H Basophils (%) (Auto) 1.4 % (0.0-2.0) Sodium Level 143 MMOL/L (136-145) Potassium Level 4.9 MMOL/L (3.5-5.1) Chloride Level 110 MMOL/L (98-107) H Carbon Dioxide Level 24 MMOL/L (21-32) Anion Gap 10 mmol/L (5-15) Blood Urea Nitrogen 47 mg/dL (7-18) H Creatinine 1.2 MG/DL (0.55-1.30) Estimat Glomerular Filtration Rate 59.9 mL/min (>60) Glucose Level 108 MG/DL (74-106) H Calcium Level 8.4 MG/DL (8.5-10.1) L Plan Problems: (1) Severe protein-calorie malnutrition Assessment & Plan: DAILY ESTIMATED NEEDS: Needs based on Critical care, underweight TF INTAKE COUNSELOR 56.8 30-35 kcals/kg 5498-8598 total kcals 1.25-2 g protein/kg 71-113.6 g total protein 25-30 mL/kg 3323-7025 total fluid mLs NUTRITION DIAGNOSIS: * Increased kcal/prot intake needs R/T sepsis and underweight status as evidenced by pt adm w/ critically elev WBC (35.7*), febrile, @68% [place] Body Weight. * Swallowing difficulty R/T respiratory status as evidenced by pt vent dep via trach, PEG dep. ENTERAL NUTRITION RECOMMENDATIONS: Nepro @45mL/hr x 22hr to provide 990mL, 1782kcal, 80g pro, 720mL free water -When Hemodynamically stable, start Nepro @ 15mL/hr for 6 hrs. -Advance as tolerated 10mL q 4-6 hrs to goal. -TF @goal meets 100% est needs. -Flush per MD/ HOB >30 degrees. ADDITIONAL RECOMMENDATIONS: * Calibrated bedscale weight for accurate CBW + weekly wt monitoring * Per SNF: Ht of 6'1", Wt 125# (05/2019) * TF recs as above when medically stable * Monitor for cont'd need of renal formula (K 5.5) * Monitor lytes and hydration status. (2) Feeding by G-tube Assessment & Plan: g tube changed (3) Respiratory failure, whmzd-my-meblbje (4) Septic shock Assessment & Plan: Acute decline now recovering Labs as above Detailed examination done mary beth rodriguez cxr noted exam stable will follow with recs thank you (5) Severe sepsis (6) GT SITE LEAKING Assessment & Plan: Patient identified worsening G-tube site leakage and cellulitis. This has been noted on prior admissions which is cared for. Plan for placement as below Pt presents with contractures. Skin erosions to abdominal region, and multiple areas of non-blanching erythema. Skin erosion noted to abdomen extending around GT and mostly to L abdominal area, skin is grossly red and excoriated. Furuncle noted to L flank oozing moderate amt purulent exudate. Non-blanchable erythema without fluctuance noted to L lateral malleolus (L) 1.5cm x (W)3cm. Non-blanchable erythema without fluctuance noted to lateral L foot (L)1cm x (W) 1cm. Non-blanchable erythema noted to sacral cleft. No other skin concerns noted. Tx.Plan: Apply Zinc Oxide Paste to GT site and excoriated areas on abd daily and prn. Apply Betadine to Boil L flank Daily .Cover with Optifoam drsg. Change daily and prn. Apply Moisture Barrier Paste to sacrum. Cover with Optifoam drsg. Change every 3 days and prn. Apply Cavilon to Non-blanchable areas L foot and bilat heels. Cover each site with Optifoam drsg. Change every 7 days and prn. Reposition at least every 2hours or as tolerated. Place pillow between knees. Off-load heels with pillow. APM/RENO Mattress overlay. Quirino Bernard Jul 06, 2019 12:42
[2019-07-06] MEDS ORDERED: NS 500ML ONE (16:20)
--- NOTE | 2019-07-06 17:45 | Electroencephalogram ---
ELECTROENCEPHALOGRAM REPORT DATE OF PROCEDURE: 07/03/2019 REQUESTING PHYSICIAN: Dr. Jd Gaffney HISTORY: This EEG was performed on a 68-year-old gentleman with a history of multiple medical problems including seizures. He was recently noted to have left frontal partial seizures that secondarily generalized. Following that, he had an EEG that revealed focal seizures emanating from the left frontal area, but not spreading. The purpose of this EEG was to evaluate the patient for ongoing ictal or interictal phenomena. TECHNICAL NOTE: This EEG was performed on a [employer] Unit with electrodes placed on the scalp according to the International 10-20 system. Bmbri-ke-vvfxl and dbcfh-vq-wyk montages were used. The EEG was technically satisfactory and was performed while the patient was in a poorly responsive state. OBSERVATIONS: In the poorly responsive state, a low amplitude slow background was noted in the 1.5-2 Hz delta and 4-5 Hz theta range. Triphasic waveforms with an anterior to posterior gradient were also seen. No definite focal abnormalities or epileptiform discharges were noted. IMPRESSION: This is an abnormal EEG characterized by: 1. Slowing of the background predominantly in the 1.5-2 Hz delta and 4-5 Hz theta range. 2. The presence of triphasic waveforms. 3. The absence of epileptiform discharges. COMMENT: This study is consistent with an encephalopathy of a moderately severe degree most probably with toxic metabolic component as evidenced by the triphasic waveforms. Please note that no interictal discharges were seen during this EEG. Oziel Shelley M.D., M.S.P.H. DR: Krystle JOB#: [id number] [email or web address]
--- NOTE | 2019-07-06 19:06 | NUR ---
NURSE NOTES: Patient received from Deborah HARTLEY. Patient is obtunded and ventilator dependant with portex 8, AC 16, 600tv, 30% FiO2 and no peep. Patient has contracted upper and lower extremities. Gtube noted and running Osmolite 1.5 at 55ml/hr with flush orders. Generalized edema noted, bilateral arm cellulitis and abdominal erosion of skin around G-Tube noted. Patient has an ALEXI PICC with clean and dry dressing intact. SCD's are on, side rails are padded per protocol. Patient remains in bed, bed is in lowest setting, safety wheels engaged and bed alarm activated. Will continue to monitor
--- NOTE | 2019-07-06 19:25 | NUR ---
HAND-OFF: Report given to Eric Bowen RN.
[2019-07-06] MEDS: Dyna-Hex 2% Top Sol 2oz TOPIC SCH (20:17)
--- NOTE | 2019-07-06 20:30 | NUR ---
NURSE NOTES: Patient provided with CHG bath, oral care and linen change. Patient tolerated care well, VS remain within normal limits. Patient remains resting in bed. Bed is in lowest position, safety wheels engaged, call light within reach, rails up x3, bed alarm activated. Will continue to monitor.
[2019-07-06] MEDS ORDERED: Phenytoin 200 MG in NS 55 ML IVPB SCH (21:00)
[2019-07-06] MEDS: Zinc Oxide Oint 2oz TOPIC SCH (21:06)
--- NOTE | 2019-07-06 21:40 | Cardiology Progress Note ---
Assessment/Plan Assessment/Plan no developments from cardiac standpoint Subjective Subjective The patient is deeply comatose on ventilator Objective Last 24 Hour Vital Signs Date Time Temp Pulse Resp B/P (MAP) Pulse Ox O2 Delivery O2 Flow Rate FiO2 07/06/19 21:29 68 16 35 07/06/19 20:00 35 07/06/19 20:00 98.4 71 16 116/55 (75) 100 07/06/19 19:00 70 18 35 07/06/19 16:50 66 17 35 07/06/19 16:00 98.3 66 14 118/54 (75) 100 07/06/19 16:00 Mechanical Ventilator 07/06/19 16:00 35 07/06/19 15:26 68 07/06/19 15:09 69 17 35 07/06/19 13:47 121/58 (79) 07/06/19 12:57 61 16 35 07/06/19 12:00 Mechanical Ventilator 07/06/19 12:00 98.5 68 16 128/59 (82) 98 07/06/19 12:00 35 07/06/19 11:43 70 07/06/19 11:18 70 17 35 07/06/19 09:05 65 16 35 07/06/19 08:00 Mechanical Ventilator 07/06/19 08:00 98.6 66 16 127/59 (81) 99 07/06/19 08:00 35 07/06/19 07:49 64 07/06/19 07:16 61 16 35 07/06/19 05:13 70 16 35 07/06/19 04:00 35 07/06/19 04:00 69 07/06/19 04:00 Mechanical Ventilator 07/06/19 04:00 99.0 69 16 100/46 (64) 100 07/06/19 02:37 72 19 35 07/06/19 01:06 67 16 35 07/06/19 00:00 35 07/06/19 00:00 71 07/06/19 00:00 71 16 99/44 (62) 96 07/06/19 00:00 Mechanical Ventilator 07/05/19 22:53 68 16 35 General Appearance: on vent EENT: other - comatose Neck: no JVD Rhythm: SB Cardiovascular: bradycardia Respiratory/Chest: crackles/rales Abdomen: soft Intake and Output 07/05/19 07/06/19 19:00 07:00 Intake Total 1185.6 ml 627 ml Output Total 780 ml 1350 ml Balance 405.6 ml -723 ml Intake Free Water 175 ml 75 ml IV Total 350.6 ml 112 ml Tube Feeding 660 ml 440 ml Output Urine Total 730 ml 1200 ml Stool Total 50 ml 150 ml Laboratory Tests Test 07/06/19 03:47 White Blood Count 8.2 K/UL (4.8-10.8) Red Blood Count 3.20 M/UL (4.70-6.10) L Hemoglobin 8.9 G/DL (14.2-18.0) L Hematocrit 27.9 % (42.0-52.0) L Mean Corpuscular Volume 87 FL (80-99) Mean Corpuscular Hemoglobin 27.9 PG (27.0-31.0) Mean Corpuscular Hemoglobin Concent 31.9 G/DL (32.0-36.0) L Red Cell Distribution Width 15.6 % (11.6-14.8) H Platelet Count 319 K/UL (150-450) Mean Platelet Volume 7.2 FL (6.5-10.1) Neutrophils (%) (Auto) 56.6 % (45.0-75.0) Lymphocytes (%) (Auto) 25.2 % (20.0-45.0) Monocytes (%) (Auto) 10.6 % (1.0-10.0) H Eosinophils (%) (Auto) 6.2 % (0.0-3.0) H Basophils (%) (Auto) 1.4 % (0.0-2.0) Sodium Level 143 MMOL/L (136-145) Potassium Level 4.9 MMOL/L (3.5-5.1) Chloride Level 110 MMOL/L (98-107) H Carbon Dioxide Level 24 MMOL/L (21-32) Anion Gap 10 mmol/L (5-15) Blood Urea Nitrogen 47 mg/dL (7-18) H Creatinine 1.2 MG/DL (0.55-1.30) Estimat Glomerular Filtration Rate 59.9 mL/min (>60) Glucose Level 108 MG/DL (74-106) H Calcium Level 8.4 MG/DL (8.5-10.1) Rowena Garcia MD Jul 06, 2019 21:40
[2019-07-07] VITALS: BP 116/58
--- NOTE | 2019-07-07 03:00 | NUR ---
NURSE NOTES: Left upper arm PICC dressing change performed. Biopatch utilized. Patient tolerated care well. No acute signs or symptoms of distress, VS remain WNL. Patient remains resting in bed. Bed is in lowest position, safety wheels engaged, call light within reach, rails up x3, bed alarm activated. Will continue to monitor.
[2019-07-07 04:00] VITALS: BP 126/66
--- NOTE | 2019-07-07 04:30 | NUR ---
NURSE NOTES: GT feeding stopped in anticipation of Synthroid administration as scheduled. Will continue to monitor.
[2019-07-07 04:32] LABS: EOSINOPHILS % (AUTO) 4.7 % (0.0-3.0); HEMOGLOBIN 8.6 G/DL (14.2-18.0); LYMPHOCYTES % (AUTO) 27.2 % (20.0-45.0); MEAN CORPUSCULAR VOLUME 87 FL (80-99); MONOCYTES % (AUTO) 11.3 % (1.0-10.0); NEUTROPHILS % (AUTO) 55.8 % (45.0-75.0); PLATELET COUNT 354 K/UL (150-450); RED CELL DISTRIBUTION WIDTH 15.7 % (11.6-14.8); WHITE BLOOD COUNT 7.8 K/UL (4.8-10.8)
[2019-07-07 04:45] LABS: ANION GAP 5 mmol/L (5-15); BLOOD UREA NITROGEN 41 mg/dL (7-18); CALCIUM 8.1 MG/DL (8.5-10.1); CARBON DIOXIDE 26 MMOL/L (21-32); CHLORIDE 108 MMOL/L (98-107); CREATININE 1.1 MG/DL (0.55-1.30); POTASSIUM 4.9 MMOL/L (3.5-5.1); SODIUM 139 MMOL/L (136-145)
[2019-07-07] MEDS: Midodrine 10mg tab GT SCH ×2 (05:05→13:52)
[2019-07-07] MEDS: PHENobarbital Elixir 30mg/7.5ml NG SCH ×2 (05:10→13:52)
[2019-07-07] MEDS: Sucralfate 1gm tab GT SCH ×2 (05:10→13:52)
--- NOTE | 2019-07-07 05:31 | NUR ---
NURSE NOTES: Administered Synthroid as prescribed. Flushed with 50mL of free water after administration. Will continue to hold feeding for 1 hour. Will continue to monitor.
--- NOTE | 2019-07-07 06:30 | NUR ---
NURSE NOTES: Glucerna 1.5 restarted at 55mL/hr (per MD order) one hour after Synthroid administration per protocol. No adverse symptoms noted. Will continue to monitor.
--- NOTE | 2019-07-07 07:33 | NUR ---
HAND-OFF: Report given to ODILIA Milligan. Patient is obtunded and ventilator dependant with portex 8, AC 16, 600tv, 30% FiO2 and no peep. Patient has been tolerating vent settings well. Patient has contracted upper and lower extremities. Gtube noted and running Osmolite 1.5 at 55ml/hr with flush orders. Generalized edema noted, bilateral arm cellulitis and abdominal erosion of skin around G-Tube noted. Patient has an ALEXI PICC with clean and dry dressing intact. SCD's are on, side rails are padded per protocol. Patient remains in bed, bed is in lowest setting, safety wheels engaged and bed alarm activated. No signs of cardiac or respiratory distress noted.
--- NOTE | 2019-07-07 07:34 | NUR ---
HAND-OFF: Report received from Keisha/ODILIA Reyes. Patient is obtunded, not tracking with his eyes, unable to follows commands. Trach to ventilator with portex 8, AC 16, 600tv, 30% FiO2 and no peep, tolerating vent settings well, O2Sat 100%. Patient has contracted upper and lower extremities. Gtube noted and running Osmolite 1.5 at 55ml/hr with water flush 125mL Q4h. Generalized edema noted, bilateral arm cellulitis. Patient has an ALEXI PICC noted, patent, dressing clean, dry and intact. SCD's are on, side rails are padded per seizure precautions. Bed is in lowest position, bed alarm activated, and call light within reach. No signs of cardiac or respiratory distress noted. Will continue plan of care
[2019-07-07 08:00] VITALS: BP 133/66
--- NOTE | 2019-07-07 08:10 | General Progress Note ---
Assessment/Plan Problem List: (1) Diabetes ICD Codes: E11.9 - Type 2 diabetes mellitus without complications SNOMED: 17664750 (2) HTN (hypertension) ICD Codes: I10 - Essential (primary) hypertension SNOMED: 15912637 (3) CVA (cerebral vascular accident) ICD Codes: I63.9 - Cerebral infarction, unspecified SNOMED: 630544839 (4) Severe protein-calorie malnutrition ICD Codes: E43 - Unspecified severe protein-calorie malnutrition SNOMED: 212264808 (5) Feeding by G-tube ICD Codes: Z93.1 - Gastrostomy status SNOMED: 847000404, 598835217 (6) Respiratory failure, hypep-nc-eftxdax ICD Codes: J96.20 - Respiratory failure, euayb-dn-iciotzz SNOMED: 49083825 (7) Anemia ICD Codes: D64.9 - Anemia, unspecified SNOMED: 413615485 (8) Chronic respiratory failure ICD Codes: J96.10 - Chronic respiratory failure, unspecified whether with hypoxia or hypercapnia SNOMED: 75256379 (9) Septic shock ICD Codes: A41.9 - Sepsis, unspecified organism; R65.21 - Severe sepsis with septic shock SNOMED: 68193435 (10) Alzheimer's dementia ICD Codes: G30.9 - Alzheimer's disease, unspecified SNOMED: 35392335 (11) Severe sepsis ICD Codes: A41.9 - Sepsis, unspecified organism; R65.20 - Severe sepsis without septic shock SNOMED: 56537115 (12) Hypothyroidism ICD Codes: E03.9 - Hypothyroidism, unspecified SNOMED: 20279473 Status: stable, progressing Assessment/Plan: vent abx wean pressor cbc bmp am tranfuse prn neuro eval ltach eval Subjective Constitutional: Reports: weakness Allergies: Coded Allergies: NO KNOWN DRUG ALLERGIES (Verified Allergy, Unknown, 09/11/16) All Systems: reviewed and negative except above Subjective trach vent altered Objective Last 24 Hour Vital Signs Date Time Temp Pulse Resp B/P (MAP) Pulse Ox O2 Delivery O2 Flow Rate FiO2 07/07/19 06:46 65 16 35 07/07/19 05:05 64 16 35 07/07/19 04:00 Mechanical Ventilator 07/07/19 04:00 98.5 67 16 126/66 (86) 98 07/07/19 04:00 35 07/07/19 03:27 65 07/07/19 03:24 68 17 35 07/07/19 01:30 68 16 35 07/07/19 00:00 99.1 67 16 116/58 (77) 100 07/07/19 00:00 Mechanical Ventilator 07/06/19 23:26 71 07/06/19 23:16 67 17 35 07/06/19 21:29 68 16 35 07/06/19 20:00 35 07/06/19 20:00 98.4 71 16 116/55 (75) 100 07/06/19 20:00 Mechanical Ventilator 07/06/19 19:34 68 07/06/19 19:00 70 18 35 07/06/19 16:50 66 17 35 07/06/19 16:00 98.3 66 14 118/54 (75) 100 07/06/19 16:00 Mechanical Ventilator 07/06/19 16:00 35 07/06/19 15:26 68 07/06/19 15:09 69 17 35 07/06/19 13:47 121/58 (79) 07/06/19 12:57 61 16 35 07/06/19 12:00 Mechanical Ventilator 07/06/19 12:00 98.5 68 16 128/59 (82) 98 07/06/19 12:00 35 07/06/19 11:43 70 07/06/19 11:18 70 17 35 07/06/19 09:05 65 16 35 Intake and Output 07/06/19 07/07/19 19:00 07:00 Intake Total 1110 ml 1109 ml Output Total 2000 ml 1300 ml Balance -890 ml -191 ml Intake Free Water 250 ml 500 ml IV Total 59 ml Tube Feeding 660 ml 550 ml Other 200 ml Output Urine Total 800 ml 1200 ml Stool Total 1200 ml 100 ml Laboratory Tests 07/07/19 03:40: White Blood Count 7.8, Red Blood Count 3.10L, Hemoglobin 8.6L, Hematocrit 27.0L , Mean Corpuscular Volume 87, Mean Corpuscular Hemoglobin 27.9, Mean Corpuscular Hemoglobin Concent 32.0, Red Cell Distribution Width 15.7H, Platelet Count 354, Mean Platelet Volume 8.1, Neutrophils (%) (Auto) 55.8, Lymphocytes (%) (Auto) 27.2, Monocytes (%) (Auto) 11.3H, Eosinophils (%) (Auto) 4.7H, Basophils (%) (Auto) 1.0, Prothrombin Time 10.6, Prothromb Time International Ratio 1.0, Activated Partial Thromboplast Time 31, Sodium Level 139, Potassium Level 4.9, Chloride Level 108H, Carbon Dioxide Level 26, Anion Gap 5, Blood Urea Nitrogen 41H, Creatinine 1.1, Estimat Glomerular Filtration Rate > 60, Glucose Level 103, Calcium Level 8.1L, Phenytoin (Dilantin) Level 21.4H, Phenobarbital Level 25.7 Height (Feet): 5 Height (Inches): 8.00 Weight (Pounds): 201 General Appearance: lethargic EENT: normal ENT inspection Neck: normal alignment Cardiovascular: normal peripheral pulses, normal rate, regular rhythm Respiratory/Chest: chest wall non-tender, lungs clear, normal breath sounds Abdomen: normal bowel sounds, non tender, soft Extremities: normal inspection Edema: no edema noted Arm (L), no edema noted Arm (R), no edema noted Leg (L), no edema noted Leg (R), no edema noted Pedal (L), no edema noted Pedal (R), no edema noted Generalized Neurologic: motor weakness Skin: normal pigmentation, warm/dry Gato Viveros DO Jul 07, 2019 08:10
[2019-07-07] MEDS: levETIRAcetam 500mg/5ml Liquid NG SCH (08:20)
--- NOTE | 2019-07-07 09:13 | General Progress Note ---
Assessment/Plan Problem List: (1) senior care resident ICD Codes: Z59.3 - Problems related to living in residential institution SNOMED: 151776016 (2) GT SITE LEAKING (3) Alzheimer's dementia ICD Codes: G30.9 - Alzheimer's disease, unspecified SNOMED: 61744050 (4) Upper GI bleed ICD Codes: K92.2 - Upper gastrointestinal hemorrhage SNOMED: 13573718 (5) Severe erosive esophagitis (6) Malfunction of gastrostomy tube ICD Codes: K94.23 - Gastrostomy malfunction SNOMED: 370911759 (7) Chronic respiratory failure ICD Codes: J96.10 - Chronic respiratory failure, unspecified whether with hypoxia or hypercapnia SNOMED: 71209050 (8) Anemia ICD Codes: D64.9 - Anemia, unspecified SNOMED: 388314339 Status: stable, progressing Assessment/Plan: stable H&H s/p one unit PRBC yesterday dietitian in put appreciated no obvious GIB per nurses ppi GTF abx per ID Subjective ROS Limited/Unobtainable: No Allergies: Coded Allergies: NO KNOWN DRUG ALLERGIES (Verified Allergy, Unknown, 09/11/16) Subjective only on low rate pressor GTF running Objective Last 24 Hour Vital Signs Date Time Temp Pulse Resp B/P (MAP) Pulse Ox O2 Delivery O2 Flow Rate FiO2 07/07/19 08:59 62 16 35 07/07/19 08:00 35 07/07/19 08:00 Mechanical Ventilator 07/07/19 06:46 65 16 35 07/07/19 05:05 64 16 35 07/07/19 04:00 Mechanical Ventilator 07/07/19 04:00 98.5 67 16 126/66 (86) 98 07/07/19 04:00 35 07/07/19 03:27 65 07/07/19 03:24 68 17 35 07/07/19 01:30 68 16 35 07/07/19 00:00 99.1 67 16 116/58 (77) 100 07/07/19 00:00 Mechanical Ventilator 07/06/19 23:26 71 07/06/19 23:16 67 17 35 07/06/19 21:29 68 16 35 07/06/19 20:00 35 07/06/19 20:00 98.4 71 16 116/55 (75) 100 07/06/19 20:00 Mechanical Ventilator 07/06/19 19:34 68 07/06/19 19:00 70 18 35 07/06/19 16:50 66 17 35 07/06/19 16:00 98.3 66 14 118/54 (75) 100 07/06/19 16:00 Mechanical Ventilator 07/06/19 16:00 35 07/06/19 15:26 68 07/06/19 15:09 69 17 35 07/06/19 13:47 121/58 (79) 07/06/19 12:57 61 16 35 07/06/19 12:00 Mechanical Ventilator 07/06/19 12:00 98.5 68 16 128/59 (82) 98 07/06/19 12:00 35 07/06/19 11:43 70 07/06/19 11:18 70 17 35 Intake and Output 07/06/19 07/07/19 19:00 07:00 Intake Total 1110 ml 1109 ml Output Total 2000 ml 1300 ml Balance -890 ml -191 ml Intake Free Water 250 ml 500 ml IV Total 59 ml Tube Feeding 660 ml 550 ml Other 200 ml Output Urine Total 800 ml 1200 ml Stool Total 1200 ml 100 ml Laboratory Tests 07/07/19 03:40: White Blood Count 7.8, Red Blood Count 3.10L, Hemoglobin 8.6L, Hematocrit 27.0L , Mean Corpuscular Volume 87, Mean Corpuscular Hemoglobin 27.9, Mean Corpuscular Hemoglobin Concent 32.0, Red Cell Distribution Width 15.7H, Platelet Count 354, Mean Platelet Volume 8.1, Neutrophils (%) (Auto) 55.8, Lymphocytes (%) (Auto) 27.2, Monocytes (%) (Auto) 11.3H, Eosinophils (%) (Auto) 4.7H, Basophils (%) (Auto) 1.0, Prothrombin Time 10.6, Prothromb Time International Ratio 1.0, Activated Partial Thromboplast Time 31, Sodium Level 139, Potassium Level 4.9, Chloride Level 108H, Carbon Dioxide Level 26, Anion Gap 5, Blood Urea Nitrogen 41H, Creatinine 1.1, Estimat Glomerular Filtration Rate > 60, Glucose Level 103, Calcium Level 8.1L, Phenytoin (Dilantin) Level 21.4H, Phenobarbital Level 25.7 Height (Feet): 5 Height (Inches): 8.00 Weight (Pounds): 201 General Appearance: no apparent distress EENT: normal ENT inspection Neck: supple Cardiovascular: normal rate Respiratory/Chest: decreased breath sounds Abdomen: normal bowel sounds, non tender, soft Extremities: non-tender Vitaliy Wilson MD Jul 07, 2019 09:13
--- NOTE | 2019-07-07 10:43 | NUR ---
RADIOLOGY DEPT., CHEST X-RAY DONE.-P.DYE
--- NOTE | 2019-07-07 10:54 | NUR ---
HAND-OFF: Report given to ODILIA Bird.
--- NOTE | 2019-07-07 10:55 | NUR ---
NURSE NOTES: Received patient from ODILIA Milligan. Patient does not open eyes at this time. No Response to voice. Withdraws to pain. patient does not communicate and does not track when eyes open. Patient trach to ventilator dependent with setting of AC 16, tidal volume 600, FiO2 35%, and PEEP 0. patient has copious oral and tracheal secretions. Will monitor and suction as needed. Patient showing sinus rhythm on the search engine optimization specialist. Rhonchi heard upon auscultation of lung sounds. Diminished lung sounds in the bases. Patient has G tube with excoriation/cellulitis/skin breakdown around the gastrostomy tube site. Dressing intact. Patient running osmolite 1.5 at 55mL/hr at this time. No residual noted. Patient has bilateral arm cellulitis and bilateral heel DTI. Patient has right upper arm PICC line that is patent, asymptomatic, and dressing intact at this time. PICC line saline locked. Patient bed in low position with bed alarm on and call light in reach at this time. Patient repositioned and oral care performed at this time. Will continue to monitor. Patient has an order for discharge. Will follow up with keycase assembler. Addendum: 07/07/19 at 1243 by Marge Reyes RN Lung sounds upper lobes rhonchi audible and lower lobes rhonchi and diminished lung sounds noted. Pitting edema +3 noted in bilateral feet. Non-pitting edema noted on right arm. Pitting edema noted on bilateral hand +2.
--- NOTE | 2019-07-07 11:44 | NUR ---
RD ASSESSMENT & RECOMMENDATIONS SEE CARE ACTIVITY FOR COMPLETE ASSESSMENT DAILY ESTIMATED NEEDS: Needs based on Critical care, underweight TF CROP NUTRITION SCIENTIST 56.8 30-35 kcals/kg 0467-3753 total kcals 1.2-2 g protein/kg 68-114 g total protein 25-30 mL/kg 3889-7285 total fluid mLs NUTRITION DIAGNOSIS: * Increased kcal/prot intake needs R/T sepsis and underweight status as evidenced by pt adm w/ critically elev WBC (35.7*-> now wnl), now afebrile, @ 68% [place] Body Weight. * Swallowing difficulty R/T respiratory status as evidenced by pt vent dep via trach, PEG dep. CURRENT TF:Osmolite 1.5@55 x22 +prosource x1 ENTERAL NUTRITION RECOMMENDATIONS: Osmolite 1.5 @ 55ml/hr x 22 hrs + Prosource x1 daily to provide 1210ml, 1815kcal, 76g + 11g prot, 922ml free water - Maintain current TF orders as pt now on IV dilantin (TF to be held for GT synthroid only, 2 hrs) - Rate as above - Add prosource x1 daily to better meet est pro needs. - Flush per MD/ HOB >30 degrees. ADDITIONAL RECOMMENDATIONS: * Calibrated bedscale weight for accurate CBW + weekly wt monitoring * Per SNF: Ht of 6'1", Wt 125# (05/2019) * Monitor lytes closely, replete as needed (K elev upon adm, monitor closely, need for TF change-> now wnl) * Monitor BGs closely w/ TF * Add JOYCELYN BID w/ TF order for wound care .
[2019-07-07 11:49] VITALS: BP 127/68
[2019-07-07] MEDS ORDERED: Tubing IV Blood Pump IV ONE (13:15)
[2019-07-07] MEDS ORDERED: NS 275ml ONE ×3 (13:15→18:59)
[2019-07-07] MEDS ORDERED: D5NS 1000ml IV ONE (13:16)
[2019-07-07] MEDS ORDERED: Tubing IV Secondary IV ONE ×2 (13:16→18:59)
[2019-07-07] MEDS ORDERED: Sterile Water Irrig 1000ml IRRIG ONE (13:16)
--- NOTE | 2019-07-07 13:17 | NUR ---
NURSE NOTES: Left message with Dr Simon's office asking if patient needs to continue antibiotics upon discharge. Awaiting call back at this time.
--- NOTE | 2019-07-07 13:28 | NUR ---
NURSE NOTES: Received call back from Dr Carrizales who is covering for Dr Simon today. She ordered for patient to remain on Amikacin as ordered for 10 days ending on July 13. She also ordered for patient to have BMP lab checked on July 09 and July 11.
--- NOTE | 2019-07-07 13:30 | NUR ---
*-* DISCHARGE PLANNING *-* [facility] P: [phone] F: [phone]
--- NOTE | 2019-07-07 14:33 | Nephrology Progress Note ---
Assessment/Plan Problem List: (1) Septic shock (2) Hypothyroidism (3) Upper GI bleed (4) Respiratory failure, [id number]-[id number]-[id number] (5) Anemia Assessment Sepsis Shock on pressors GI Bleed Low Na and high K UTI HypoThyroidism Tracheostomy dependence Respiratory failure, gzlpa-sh-urqggdr Alzheimer's Feeding by G-tube Plan today off pressors monitor dilantin and phenobarb level- med mgt for sz per neuro Albumin bolus prn as Cr rising consider transfusion as needed On Midodrine On GT feeding fluid challenge as needed adjust IV fluids transfuse as needed Monitor lytes and renal parametrs urine studies per orders Subjective ROS Limited/Unobtainable: Yes Objective Objective Last 24 Hour Vital Signs Date Time Temp Pulse Resp B/P (MAP) Pulse Ox O2 Delivery O2 Flow Rate FiO2 07/07/19 13:25 66 16 35 07/07/19 12:00 Mechanical Ventilator Mechanical Ventilator 07/07/19 12:00 61 07/07/19 12:00 35 07/07/19 11:49 97.8 68 16 127/68 (87) 100 07/07/19 11:21 60 16 35 07/07/19 08:59 62 16 35 07/07/19 08:00 98.6 65 16 133/66 (88) 100 07/07/19 08:00 35 07/07/19 08:00 Mechanical Ventilator 07/07/19 07:59 65 07/07/19 06:46 65 16 35 07/07/19 05:05 64 16 35 07/07/19 04:00 Mechanical Ventilator 07/07/19 04:00 98.5 67 16 126/66 (86) 98 07/07/19 04:00 35 07/07/19 03:27 65 07/07/19 03:24 68 17 35 07/07/19 01:30 68 16 35 07/07/19 00:00 99.1 67 16 116/58 (77) 100 07/07/19 00:00 Mechanical Ventilator 07/06/19 23:26 71 07/06/19 23:16 67 17 35 07/06/19 21:29 68 16 35 07/06/19 20:00 35 07/06/19 20:00 98.4 71 16 116/55 (75) 100 07/06/19 20:00 Mechanical Ventilator 07/06/19 19:34 68 07/06/19 19:00 70 18 35 07/06/19 16:50 66 17 35 07/06/19 16:00 98.3 66 14 118/54 (75) 100 07/06/19 16:00 Mechanical Ventilator 07/06/19 16:00 35 07/06/19 15:26 68 07/06/19 15:09 69 17 35 Intake and Output 07/06/19 07/07/19 19:00 07:00 Intake Total 1110 ml 1109 ml Output Total 2000 ml 1300 ml Balance -890 ml -191 ml Intake Free Water 250 ml 500 ml IV Total 59 ml Tube Feeding 660 ml 550 ml Other 200 ml Output Urine Total 800 ml 1200 ml Stool Total 1200 ml 100 ml Laboratory Tests 07/07/19 03:40: White Blood Count 7.8, Red Blood Count 3.10L, Hemoglobin 8.6L, Hematocrit 27.0L , Mean Corpuscular Volume 87, Mean Corpuscular Hemoglobin 27.9, Mean Corpuscular Hemoglobin Concent 32.0, Red Cell Distribution Width 15.7H, Platelet Count 354, Mean Platelet Volume 8.1, Neutrophils (%) (Auto) 55.8, Lymphocytes (%) (Auto) 27.2, Monocytes (%) (Auto) 11.3H, Eosinophils (%) (Auto) 4.7H, Basophils (%) (Auto) 1.0, Prothrombin Time 10.6, Prothromb Time International Ratio 1.0, Activated Partial Thromboplast Time 31, Sodium Level 139, Potassium Level 4.9, Chloride Level 108H, Carbon Dioxide Level 26, Anion Gap 5, Blood Urea Nitrogen 41H, Creatinine 1.1, Estimat Glomerular Filtration Rate > 60, Glucose Level 103, Calcium Level 8.1L, Phenytoin (Dilantin) Level 21.4H, Phenobarbital Level 25.7 Height (Feet): 5 Height (Inches): 8.00 Weight (Pounds): 201 General Appearance: no apparent distress EENT: other - trach-vent Cardiovascular: tachycardia Respiratory/Chest: decreased breath sounds Abdomen: distended Objective no change Sav Salvador MD Jul 07, 2019 14:32
--- NOTE | 2019-07-07 14:46 | Diagnostic Imaging Report ---
Indication: Dyspnea Comparison: 07/06/2019 A single view chest radiograph was obtained. Findings: Hazy basilar opacities likely pleural effusions demonstrated. Pulmonary edema again demonstrated with cardiomegaly. Tracheostomy and PICC line are stable. IMPRESSION: Pulmonary edema. Bilateral pleural effusions. No change from one day earlier
[2019-07-07] MEDS: Amikacin 500 MG in NS 110 ML IV SCH (15:46)
[2019-07-07 16:00] VITALS: BP 130/64
--- NOTE | 2019-07-07 16:30 | NUR ---
NURSE NOTES: Patient opens eyes but does not track. No Response to voice. Withdraws to pain. Trach to ventilator dependent with setting of AC 16, tidal volume 600, FiO2 35%, and PEEP 0. Patient tolerating ventilator setting with no sign of acute distress. patient continues to have copious oral and tracheal secretions. Will continue to monitor and suction as needed. Patient showing sinus rhythm on the bottom stop attacher. Rhonchi heard upon auscultation of lung sounds. Diminished lung sounds in the bases. G tube with excoriation/cellulitis/skin breakdown still present around the gastrostomy tube site. Dressing changed, dry and intact. Drainage coming from G tube insertion site. Will continue to monitor. Patient running osmolite 1.5 at 55mL/hr at this time. No residual noted. Right upper arm PICC line patent, asymptomatic, and dressing intact at this time. PICC line saline locked. Pitting edema +3 noted in bilateral feet. Non-pitting edema noted on right arm. Pitting edema noted on bilateral hand +2. Patient bed in low position with bed alarm on and call light in reach at this time. Patient repositioned, cleaned, and oral care performed at this time. Will continue to monitor. Patient has an order for discharge. Patient is to be discharged to [facility]. Will call and give report at this time and follow up with [facility] for transport.
--- NOTE | 2019-07-07 17:12 | NUR ---
ELECTRIC MOTOR REPAIRER NOTES PT ACCEPTED TO [facility] TO TRANSPORT PT WITH AN ETA 1800.
--- NOTE | 2019-07-07 17:12 | Infectious Diseases Prog Note ---
Assessment/Plan Assessment/Plan Mr. Huffman is a 68 yo male with PMHx of of chronic resp failure trach/vent dependant, diffuse ulcerative esophagitis, peptic esophageal stricture, asthma, GERD, Dm2, CVA/TIA w/ hemiplegia, functional quadriplegia, CAD, CHF, ESBL UTI , GIB s/p multiple EGDs in the past, schizoaffective disorder, Dementia, hypothyroidism, malnutrition, non verbal, infected obstructive ureterolithiasis/ w abscess s/p L NT palced 12/2018, encephalopathy, Alzheimer's disease, multiple admissions, subacute facility resident who was sent to the ED for hypotension and bradycardia. Shock, recurrent (06/29)- SP- r/o septic vs neurogenic- off pressors now Probable recurent PNA 07/07 CXR: Hazy basilar opacities likely pleural effusions demonstrated. Pulmonary edema again demonstrated with cardiomegaly. Tracheostomy and PICC line are stable. 07/06 CXR: No significant interval change from the prior chest x-ray, with persistent pulmonary vascular congestion, layering pleural effusions, and subsegmental atelectasis versus infiltrates in the lung bases. 07/05 CXR: No significant change in bilateral moderate layering pleural effusions or pulmonary vascular congestion. Subsegmental atelectasis versus infiltrates in the lateral lung bases, also not significantly changed. 07/02 CXR: Interstitial edema with moderate bilateral layering pleural effusions, grossly unchanged. Bibasilar airspace opacities which likely represent combination of pleural fluid and atelectasis, but pneumonia should be excluded clinically. 06/30 u/a tntc, nit neg, leuk +3; ucx C. tropicalis Bcx NTD CXR: Bilateral pleural effusions and bilateral interstitial and airspace edema are unchanged. sp cx GNR MDR PsA (S AMikacin), MDR P. mirabilis ( S Zosyn, Ertapenem, Amikacin) Status epilepticus Leukocytosis; mild recurrent- resolved Hypothermia; SP > Low grade fever 06/30; SP Septic Shock, SP- likely 2ry to UTI and PNA, sp Rx off pressors now Hx of resistant infections 06/23 CXR; Bilateral right greater than left pleural effusions are again demonstrated. Bilateral interstitial and airspace edema persists, unchanged Urine Cx 06/14/19 - >100k ESBL P, stuarti, ESBL P mirabilis (both S Ertapenem , ZOsyn) Blood Cx - NTD CXR show probable pna sp cx PsA (R imipenem, I levaquin), S. maltophila (S bactrim, levaquin) GT leakage with cellulitis, SP -wound cx MDR/CRE K.pna, MDR PsA (colonizers) Chronic resp failure trach/vent dependant asthma Dm2 CVA/TIA w/ hemiplegia Functional quadriplegia CAD CHF GIB s/p multiple EGDs in the past Schizoaffective disorder Dementia Hypothyroidism Non verbal Alzheimer's disease PLAN: -Continue IV Amikacin #/ for MDR in sputum after discharge(last dose 07/13). BMP on 07/09 and 07/11. -07/04 SP Cefepime # -07/03 SP IV Vancomycin # -06/27 SP Levaquin #5 -06/24 SP IV Amikacin #10 -06/23 SP Ertapenem #9 and IV Vancomycin #9 -06/17 SP PO Vancomycin #3 -06/16 SP Flagyl #2 - monitor CBC and Temps -wound care per hospital protocol -GI f/u -f/u Bcx x2 Thank you for this consult. [facility] will continue to follow the patient with you during this hospitalization. Subjective Allergies: Coded Allergies: NO KNOWN DRUG ALLERGIES (Verified Allergy, Unknown, 09/11/16) Subjective afebrile nonverbal G tube leakage Objective Vital Signs Last 24 Hour Vital Signs Date Time Temp Pulse Resp B/P (MAP) Pulse Ox O2 Delivery O2 Flow Rate FiO2 07/07/19 16:00 Mechanical Ventilator Mechanical Ventilator 07/07/19 16:00 35 07/07/19 16:00 97.7 65 16 130/64 (86) 100 07/07/19 16:00 70 07/07/19 15:29 68 18 35 07/07/19 13:25 66 16 35 07/07/19 12:00 Mechanical Ventilator Mechanical Ventilator 07/07/19 12:00 61 07/07/19 12:00 35 07/07/19 11:49 97.8 68 16 127/68 (87) 100 07/07/19 11:21 60 16 35 07/07/19 08:59 62 16 35 07/07/19 08:00 98.6 65 16 133/66 (88) 100 07/07/19 08:00 35 07/07/19 08:00 Mechanical Ventilator 07/07/19 07:59 65 07/07/19 06:46 65 16 35 07/07/19 05:05 64 16 35 07/07/19 04:00 Mechanical Ventilator 07/07/19 04:00 98.5 67 16 126/66 (86) 98 07/07/19 04:00 35 07/07/19 03:27 65 07/07/19 03:24 68 17 35 07/07/19 01:30 68 16 35 07/07/19 00:00 99.1 67 16 116/58 (77) 100 07/07/19 00:00 Mechanical Ventilator 07/06/19 23:26 71 07/06/19 23:16 67 17 35 07/06/19 21:29 68 16 35 07/06/19 20:00 35 07/06/19 20:00 98.4 71 16 116/55 (75) 100 07/06/19 20:00 Mechanical Ventilator 07/06/19 19:34 68 07/06/19 19:00 70 18 35 Height (Feet): 5 Height (Inches): 8.00 Weight (Pounds): 201 General Appearance: no acute distress Respiratory/Chest: lungs clear, no respiratory distress Cardiovascular: normal rate Abdomen: normal bowel sounds, soft, non tender, non distended Skin: rash Laboratory Tests Test 07/07/19 03:40 White Blood Count 7.8 K/UL (4.8-10.8) Red Blood Count 3.10 M/UL (4.70-6.10) L Hemoglobin 8.6 G/DL (14.2-18.0) L Hematocrit 27.0 % (42.0-52.0) L Mean Corpuscular Volume 87 FL (80-99) Mean Corpuscular Hemoglobin 27.9 PG (27.0-31.0) Mean Corpuscular Hemoglobin Concent 32.0 G/DL (32.0-36.0) Red Cell Distribution Width 15.7 % (11.6-14.8) H Platelet Count 354 K/UL (150-450) Mean Platelet Volume 8.1 FL (6.5-10.1) Neutrophils (%) (Auto) 55.8 % (45.0-75.0) Lymphocytes (%) (Auto) 27.2 % (20.0-45.0) Monocytes (%) (Auto) 11.3 % (1.0-10.0) H Eosinophils (%) (Auto) 4.7 % (0.0-3.0) H Basophils (%) (Auto) 1.0 % (0.0-2.0) Prothrombin Time 10.6 SEC (9.30-11.50) Prothromb Time International Ratio 1.0 (0.9-1.1) Activated Partial Thromboplast Time 31 SEC (23-33) Sodium Level 139 MMOL/L (136-145) Potassium Level 4.9 MMOL/L (3.5-5.1) Chloride Level 108 MMOL/L (98-107) H Carbon Dioxide Level 26 MMOL/L (21-32) Anion Gap 5 mmol/L (5-15) Blood Urea Nitrogen 41 mg/dL (7-18) H Creatinine 1.1 MG/DL (0.55-1.30) Estimat Glomerular Filtration Rate > 60 mL/min (>60) Glucose Level 103 MG/DL (74-106) Calcium Level 8.1 MG/DL (8.5-10.1) L Phenytoin (Dilantin) Level 21.4 ug/mL (10-20) H Phenobarbital Level 25.7 ug/mL (15-40) Current Medications Medications (Trade) Dose Ordered Sig/Wanda Route PRN Reason Start Time Stop Time Status Last Admin Dose Admin Acetaminophen (Tylenol) 650 mg Q4H PRN GT fever (temp>100.5F) 06/29/19 19:33 07/29/19 19:32 06/30/19 18:54 Amikacin Protocol (Amikacin pharmacy to dose) 1 ea DAILY PRN MISC Per rx protocol 07/04/19 15:15 08/03/19 15:14 Amikacin Sulfate 500 mg/Sodium Chloride 112 ml @ 112 mls/hr Q36H IV 07/04/19 16:00 07/11/19 15:59 07/07/19 15:46 Chlorhexidine Gluconate (Jasmin-Hex 2%) 1 applic DAILY@2000 TOPIC 06/29/19 20:00 07/20/19 19:59 07/06/19 20:17 Lansoprazole (Prevacid) 30 mg EVERY 12 HOURS GT 07/06/19 09:00 07/31/19 17:59 07/07/19 08:20 Levetiracetam (Keppra) 1,000 mg Q12HR NG 07/05/19 21:00 08/04/19 20:59 07/07/19 08:20 Levothyroxine Sodium (Synthroid) 88 mcg DAILY@0630 GT 06/30/19 06:30 07/20/19 06:29 07/07/19 05:10 Midodrine (Pro-Amatine) 10 mg EVERY 8 HOURS GT 07/01/19 14:00 07/17/19 12:59 07/07/19 13:52 Ondansetron HCl (Zofran) 4 mg Q6H PRN IVP Nausea & Vomiting 06/29/19 19:33 07/29/19 19:32 Phenobarbital (PHENobarbital) 60 mg Q8HR NG 07/01/19 14:00 07/31/19 13:59 07/07/19 13:52 Phenytoin 200 mg/ Sodium Chloride 59 ml @ 118 mls/hr QHS IVPB 07/06/19 21:00 08/02/19 08:59 07/06/19 22:03 Polyethylene Glycol (Miralax) 17 gm DAILYPRN PRN GT Constipation 06/29/19 19:33 07/29/19 19:32 Sucralfate (Carafate) 1 gm EVERY 8 HOURS GT 06/29/19 22:00 07/21/19 08:59 07/07/19 13:52 Zinc Oxide (Zinc Oxide) 1 applic QHS TOPIC 06/29/19 21:00 07/21/19 08:59 07/06/19 21:06 Virginia Carrizales MD Jul 07, 2019 17:12
--- NOTE | 2019-07-07 17:17 | NUR ---
NURSE NOTES: Report given to ODILIA Minor at [facility]. Patient to be picked up for transfer to [facility] at 1800. Will follow up.
--- NOTE | 2019-07-07 19:00 | NUR ---
NURSE NOTES: Report given to ambulance personal. Patient left unit at 1900.
--- NOTE | 2019-07-08 13:58 | NUR ---
*-* INSURANCE *-* ALL CLINICALS AND REVIEWS HAVE BEEN FAXED TO: [facility] NCM:Dana Work Work Addendum: 07/08/19 at 1401 by BILL GUILLEN CALLED NCM:DANA FRASER WITH NO LUCK LEFT HER A MGSG TO CALL ME TO SEE IF SHE HAS BEEN RECEIVENG CLINICALS
--- NOTE | 2019-07-09 08:19 | Discharge Summary ---
Discharge Summary Discharge Summary _ DATE OF ADMISSION: 06/14/2019 DATE OF DISCHARGE: 07/07/2019 DISCHARGED BY: Dr Viveros REASON FOR ADMISSION: 68 years old male with past medical history of chronic respiratory failure, ventilator dependent, tracheostomy status, dysphagia, feeding by G-tube, history of CVA, erosive esophagitis, upper GI bleeding, hypothyroidism, encephalopathy, malnutrition, Alzheimer's dementia, persistent vegetative state , was sent to emergency room for evaluation due to hypotension and bradycardia. Upon evaluation in emergency room patient was found to be in septic shock . Central line was placed by surgeon via right subclavian vein. Urinalysis revealed pyuria , +2 protein, few bacteria. Sodium 126 . Magnesium 2.6 , phosphorus 1.6 . BUN 49 , creatinine 0.7. Glucose 127 . Lactic acid 2.4 . Troponin negative , pro BNP 353 . WBC 18.5, hemoglobin 10 , hematocrit 31.1, platelets 163. Chest x-ray revealed subsegmental atelectasis versus infiltrate in the medial lung bases , greater on the left side. Patient started on pressor, aggressive IV hydration, pancultured, started on empiric antibiotic and admitted to ICU for further management. CONSULTANTS: solar project coordination specialist Dr. Ponce neurologist Dr. Gonzalez pulmonary Dr. Keating ID specialist Dr. Lai GI specialist Dr. Wilson event sales assistant Dr. Salvador oil well gun perforator operator/oncologist Dr. Nath surgery [facility] COURSE: Patient admitted to ICU. Ventilator support and tracheostomy care provided. Aggressive pulmonary toilet provided. Patient was on pressors and IV hydration. Hemodynamic status was closely monitored to keep mean arterial blood pressure above 65. Echocardiogram revealed preserved ejection fraction of 55 to 60% with no evidence of wall motion abnormality no left ventricular hypertrophy. Right ventricular systolic pressure of 12. Branch Credit Counselor and pleater closely followed. Patient started on empiric antibiotics as per ID specialist recommendation. The next day WBC up to 35.7 and in two days started to trend down. Blood cultures were negative. Urine culture revealed Proteus ESBL and Providencia. Sputum culture revealed Pseudomonas and Stenotrophomonas. Patient noted to have G-tube cellulitis . Wound culture from G-tube site revealed Klebsiella pneumonia Carbapenem resistant , Pseudomonas MDR , and Tea ( colonized as per ID specialist). Repeated urine cultures showed Tea. Repeated sputum culture revealed showed Pseudomonas MDR and Proteus ESBL. Stool for C. difficile was negative. Repeated blood culture were negative. Antibiotic regimen was optimized as per ID specialist recommendation. Leukocytosis and low-grade fever resolved. Patient will need to continue IV amikacin at the facility, end of treatment 07/13. Follow-up with BMP on 07/09 and 07/11 as per ID recommendation. Central line was discontinued during the stay in the hospital , and PICC line was placed for IV antibiotics. Patient was able to be weaned o from pressors but required pressor support again. Patient noted to have a Mobitz type I second-degree AV block without recurrence. Patient was asymptomatic with sinus bradycardia. Branch Credit Counselor recommended to avoid negative chronotropic agents. Resolved. Patient was able to be weaned from pressors the second time. Blood pressure was supported with midodrine and remained stable. Venous duplex bilateral lower extremity revealed no evidence of acute DVT. Patient was followed-up with chest x-ray and ABG Ventilator settings titrated as needed. While in shock patient developed acute kidney injury . Renal parameters and electrolytes were closely monitored. Electrolytes corrected as needed. IV fluids eventually discontinued. Prior to discharge creatinine down to 1.1. Patient noted to have recurrent seizures . Neurologist followed. EEG revealed severe encephalopathy. Patient was on multiple anticonvulsants , including Keppra, Dilantin , and phenobarbital . Levels were monitored as per neurology. Ativan was on board as needed for breakthrough seizure. Aspiration precaution maintained. G-tube feeding continued. G-tube site care provided as per surgeon recommendations. Continue wound care at the facility. Patient undergone replacement of G-tube at the bedside. Patient was on GI prophylaxis with PPI and Carafate. Hemoglobin and hematocrit were closely monitored with goal to keep hemoglobin above 7. While in the hospital patient undergone transfusion of 3 units of packed red blood cells. Anemia work-up was consistent with anemia of chronic disease. No evidence of hemolysis. Peripheral smear had been reviewed. Epogen or iron were not particularly indicated . Prior to discharge hemoglobin 8.6, hematocrit 27. Stool for occult blood was positive. Patient with prior history of upper GI bleeding and erosive esophagitis. Patient undergone on 06/26 upper endoscopy with dilation and biopsy , which revealed distal esophageal stricture , requiring dilation up to 10 mm, gastritis , and questionable healing gastric ulcer versus other lesion. Patient also undergone 06/30 colonoscopy, which revealed diverticulosis and internal hemorrhoids. Biopsy of stomach antrum revealed mild chronic gastritis , but was negative for Helicobacter infection and for intestinal metaplasia , dysplasia or malignancy. Tube feeding was resumed Tube feeding formula with goal rate and protein supplements provided as per statuary painter recommendation. Patient was able to tolerate tube feeding. Patient had initially elevated TSH , and levothyroxine dose was increased . Follow-up with TSH at the facility. Blood sugar remained stable , hemoglobin A1c- 5.5. Patient noted to have thrombocytopenia , unclear etiology . Platelet count the lowest 80 , improved to 354 upon discharge. Hepatitis panel negative , HIV test was nonreactive. Patient clinically stabilized and was ready for discharge back to half-way facility for continuation of care. FINAL DIAGNOSES: Sepsis, likely secondary to UTI and pneumonia Septic shock UTI/pyelonephritis with Proteus ESBL and Providencia Pneumonia with Pseudomonas MDR and Proteus ESBL Acute on chronic respiratory failure VDRF/tracheostomy status Dysphagia, feeding by G-tube G-tube leaking with cellulitis, status post G tube replacement at bedside Status epilepticus Severe encephalopathy with persistent vegetative state Mobitz 1 second-degree AV block/no recurrence Anemia of chronic disease Thrombocytopenia -resolved GI bleeding Status post EGD ( distal esophageal stricture requiring dilatation, gastritis, questionable healing gastric ulcer) Status post colonoscopy (diverticulosis, internal hemorrhoids) Electrolyte imbalance Acute kidney injury -resolved Hypothyroidism with elevated TSH Severe protein calorie malnutrition DISCHARGE MEDICATIONS: See Medication Reconciliation list. DISCHARGE INSTRUCTIONS: Patient was discharged to the half-way facility. Follow up with medical doctor at the facility. Amina Garcia NP Jul 09, 2019 08:19
--- NOTE | 2019-07-09 14:25 | NUR ---
*-* INSURANCE *-* ALL CLINICALS AND REVIEWS HAVE BEEN FAXED TO: [facility]:Dana Work Work SPOKE TO DANA SHE HAS RECEIVED ALL CLINICALS FOR PATIENT...
== END 2019-07-07 19:00 | DRG 870 ==
LOC: EDBD 12:10 → EDBEDREQ 12:33 → EMR 12:49 → EDBEDREQ 13:57 → ICU 14:23 → EDBEDREQ 15:09 → ICU 17:00 → 2W 06-19 03:05 → ICU 06-29 19:50 → 2W 07-05 21:54
PROC: 05H533Z Insertion of Infusion Device into Right Subclavian Vein, Percutaneous Approach (ICD-10-PCS; principal; 2019-06-14)
PROC: 5A1955Z Respiratory Ventilation, Greater than 96 Consecutive Hours (ICD-10-PCS; principal; 2019-06-14)
PROC: B548ZZA Ultrasonography of Superior Vena Cava, Guidance (ICD-10-PCS; 2019-06-20)
PROC: 05PYX3Z Removal of Infusion Device from Upper Vein, External Approach (ICD-10-PCS; 2019-06-20)
PROC: 02HV33Z Insertion of Infusion Device into Superior Vena Cava, Percutaneous Approach (ICD-10-PCS; 2019-06-20)
PROC: 0D748ZZ Dilation of Esophagogastric Junction, Via Natural or Artificial Opening Endoscopic (ICD-10-PCS; 2019-06-26)
PROC: 0D738ZZ Dilation of Lower Esophagus, Via Natural or Artificial Opening Endoscopic (ICD-10-PCS; 2019-06-26)
PROC: 0DD78ZX Extraction of Stomach, Pylorus, Via Natural or Artificial Opening Endoscopic, Diagnostic (ICD-10-PCS; 2019-06-26)
PROC: 0DJD8ZZ Inspection of Lower Intestinal Tract, Via Natural or Artificial Opening Endoscopic (ICD-10-PCS; 2019-06-27)
DX: A41.52 Sepsis due to Pseudomonas (principal); R65.21 Severe sepsis with septic shock; J96.20 Acute and chronic respiratory failure, unspecified whether with hypoxia or hypercapnia; E43 Unspecified severe protein-calorie malnutrition; R53.2 Functional quadriplegia; J15.1 Pneumonia due to Pseudomonas; E87.1 Hypo-osmolality and hyponatremia; N39.0 Urinary tract infection, site not specified; I69.359 Hemiplegia and hemiparesis following cerebral infarction affecting unspecified side; K94.23 Gastrostomy malfunction; Z99.11 Dependence on respirator [ventilator] status; R40.3 Persistent vegetative state; K92.2 Gastrointestinal hemorrhage, unspecified; K22.10 Ulcer of esophagus without bleeding; K94.22 Gastrostomy infection; L03.311 Cellulitis of abdominal wall; G93.40 Encephalopathy, unspecified; N17.9 Acute kidney failure, unspecified; Z93.0 Tracheostomy status; E11.9 Type 2 diabetes mellitus without complications; I11.0 Hypertensive heart disease with heart failure; I50.9 Heart failure, unspecified; E03.9 Hypothyroidism, unspecified; G30.9 Alzheimer's disease, unspecified; F02.80 Dementia in other diseases classified elsewhere, unspecified severity, without behavioral disturbance, psychotic disturbance, mood disturbance, and anxiety; D64.9 Anemia, unspecified; I25.10 Atherosclerotic heart disease of native coronary artery without angina pectoris; R00.1 Bradycardia, unspecified; F25.9 Schizoaffective disorder, unspecified; R13.10 Dysphagia, unspecified; D69.6 Thrombocytopenia, unspecified; E87.5 Hyperkalemia; I44.1 Atrioventricular block, second degree; G40.901 Epilepsy, unspecified, not intractable, with status epilepticus; K22.2 Esophageal obstruction; K64.8 Other hemorrhoids; K29.70 Gastritis, unspecified, without bleeding
CPT/HCPCS: 36415; 36569; 36600; 71045; 74018; 76937; 80048; 80053; 80150; 80184; 80185; 80202; 81003; 82140; 82248; 82270; 82533; 82550; 82553; 82607; 82728; 82746; 82803; 82962; 83036; 83540; 83550; 83605; 83690; 83735; 83880; 83930; 83935; 84100; 84165; 84300; 84439; 84443; 84484; 84550; 85007; 85025; 85610; 85651; 85730; 86140; 86703; 86705; 86709; 86803; 86850; 86900; 86901; 86920; 87040; 87070; 87081; 87086; 87181; 87205; 87324; 87340; 93005; 93306; 93970; 94002; 94003; 94150; 94664; 95819; 96361; 96374; 96375; 99291; J1165; J2370; J2405; J2765; J7030